=== PATIENT | female | born 1955 | race Caucasian/White ===

== ENCOUNTER 2017-11-27 08:00 | Outpatient (RCR) | payer BC, SELFPAY ==
--- NOTE | 2017-11-13 14:25 | PCM.PR.HP ---
History of Present Illness Arrival date:: 11/13/17 Arrival time:: 14:26 Date of Evaluation: 11/13/17 Referring Physician: Dr.Thomas Childs/Dr. Phuc Martines Primary Diagnosis: COPD Gold Level III History of Present Illness: The patient is a 62 year old female who presents to pulmonary rehab today under the care of Dr. Joel Childs and Dr[facility] Phuc [facility] for her COPD. mMRC Breathless Scale: When is the patient short of breath? Y/N Grade: Description of Breathlessness: 0 I only get breathless with strenuous exercise. 1 I get short of breath when hurrying on level ground or walking up a slight hill. 2 On level ground, I walk slower than people of the same age because of breathless, or have to stop for breath when walking at my own pace. 3 I stop for breath after walking 100 yards or after a few minutes on level ground. 4 I am too breathless to leave the house or I am breathless when dressing. Respiratory Problems: Yes: Able to Speak in Full Sentences, Hoarseness, Dyspnea at Rest, Dyspnea with Activity No: Retain Secretions, Limited Range of Motion, Chest Pain, Fatigue, Wheezing, Dizziness, Ankle Swelling, Anxiety, Panic, Dyspnea Lying Down Flat, Cough with Secretions Sleep Disorder Evaluation: EPWORTH SLEEPINESS SCALE 0 = NO chance of dozing 2 = MODERATE chance of dozing 1 = SLIGHT chance of dozing 3 = HIGH chance of dozing : SITUATION: CHANCE OF DOZING: Sitting and Reading Watching TV Sitting inactive in a public place (i.e. Movies) As a passenger in a car for an hour without a break Lying down to rest in the afternoon when permitted Sitting and talking to someone Sitting quietly after lunch without alcohol In a car, while stopped for a few minutes in traffic Total Total Equals: 1-6 = Adequate Sleep 7-8 = Average > 9 = Sleep Study/Consult Indicated Past Medical History Past Medical History: Cancer - uterus, Emphysema, Hypertension, Hypoxia - weqars supplemental oxygen 4 liters 20/05., Obesity, Sleep Apnea, - - HbA1c 6.0% due to prednisone use, leiomyoma of uterus, obesity, irritable bowel syndrome, ROXY, acute bronchitis, impaired fasting glucose. Psychiatric History: no pertinent psych hx Comments: Patient possible sleep apnea, patient's last sleep study was inconclusive, she refuses to have another one performed. Surgical History: - - herniorrhaphy Additional Family History: Maternal history of COPD, Paternal history of Liver cancer - Social History Marital Status: Assistive Devices:: none Fall history:: none Other potential problems:: none Interest/Hobbies:: fishing, sports (watching them), social media, crafts. 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 Smoking Status: Former smoker Quit Smoking Since: 2008 Packs per day: 1 Years Smoked: 35 - Living Arrangement Patient lives with other person(s) in the home:: AROUND THE CLOCK - Current/ Previous Services [facility] Home Health:: No Other Home Health:: No [facility] Cardiac Rehab:: No Life (Palliative) Care Services:: No Tobacco Use & Smoking Cessation:: No Pulmonary Rehab:: No Social History - Smoking History Smoking Status: Former smoker Years Smokin Packs Smoked per Day: 1 Hx Tobacco Use: No Hx Smoking Exposure: No - Alcohol Use Alcohol Usage: Yes - Heavy, patient drinks 4 drinks per night, she drinks more on weekends - Substance Abuse Hx Substance Use: No - Occupation Occupation (List type of work in comments):: Employed Hours worked per day:: 8 - 7-4 - Hobbies, Recreation, Social Activities Hobbies: Other - see previous page. Recreational Activities: I am able to engage in a few activities Medications & Vaccination Info Home Medications: Ambulatory Orders Albuterol IH (ProAir) [Proair Hfa] 2 puff INHALATION Q4H PRN PRN 04/15/17 Amlodipine [Norvasc] 5 mg PO DAILY 04/15/17 Beclomethasone Diprop Inhaler [Qvar 80 Mcg Inhaler] 2 puff INHALATION BID 04/15/17 Multivitamin [Daily Multiple Vitamin] 1 each PO DAILY 04/15/17 Salmeterol [Serevent Diskus] 1 puff INHALATION Q12 04/15/17 Tiotropium Paragon [Spiriva 18 MCG] 1 puff INHALATION DAILY 04/15/17 Triamterene/Hydrochlorothiazid [Triamterene-Hctz 37.5-25 mg Tb] 1 each PO DAILY 04/15/17 Guaifenesin [Mucinex] 1,200 mg PO BID #20 tablet 04/17/17 Levofloxacin [Levaquin] 500 mg PO DAILY #5 tablet 04/17/17 Nystatin 500,000 unit PO 4X/DAY #1 bot 04/17/17 Prednisone 10 mg PO DAILY #30 tab.ds.pk 04/17/17 Ascorbic Acid [Vitamin C] 500 mg PO 11/13/17 Oxygen, Home [Home Oxygen] 2 - 4 lpm NASAL 11/13/17 Do you use a peak flow meter at home?: No Do you use a spacer device with your inhalers?: No Number of hospital visits in the last year?: march 2017 Reason for hospital visits: RESP INF-PNUEM,BRONCHITIS, OTHER RESP PROBLEMS Number of emergency room visits in the last year?: March 2017 Exacerbation Do you see your physician on a regular schedule?: Yes How often?: PCP 6 months; Pulmonary 3 months presently Has adequate access & meets healthcare needs?: Yes - Drug Regimen Review Indication of potential clinical significant med issues (drug reactions, ineffective therapy, side effects, interactions, duplicate therapy, omissions, dose errors, or non-compliance)?: No problems found during review Was a physician or the physican designee contacted within one calendar day to resolve clinically significant medication issues, including reconcilitation?: No Review of Systems Constitutional: Reports: Fatigue - on occasion not a big problem.. Denies: Chills, Fever, Weight Change HEENT: Reports: Nasal Congestion, Post Nasal Drip, Sinus Congestion, Sinus Drainage. Denies: Head Aches Cardiovascular: Denies: Chest Pain, Palpitations Respiratory: Reports: Shortness of breath upon exertion. Denies: Cough, Shortness of Breath, Shortness of breath at rest, Sputum production, Wheezing Musculoskeletal: Denies: Joint Pain, Joint Tenderness Skin: Denies: Rash, Wounds Neurological: Denies: Numbness, Tingling, Focal weakness Psychiatric: Denies: Anxiety, Depression, Homicidal Ideations, Suicidal Ideations Advanced Directives - Advanced Directives Power of Managing Consultant Clinical Professor: No Living Will: No Advance Directives Information Provided: Yes Advance Directives on File: No DNR Order?:: No Coping/Social Support/Other - Abuse and Neglect Do you feel safe in your surroundings?:: YES Are there sign/symptoms of abuse?: No Has anyone physically or mentally abused you?: No Has anyone threatened to harm you in any way?: No Been asked to sign a document that you don't understand?: No - Exacerbation History Number of Exacerbations in a year:: 1 Recent exposure to illness?: No Known carrier?: No Number of Infections per year?: 1 Antibiotic Taken:: Yes I know I have an infection when:: I am beginning to realize the symptoms associated with an infection. - Nutrition Risk Factor Are you on a special diet?: Yes Diff. chewing/swallowing:: No Have you had a change in your weight?: No Physical Exam - Vital Signs Temperature: 98.7 F Pulse Rate: 95 Respiratory Rate: 18 Pulse Ox at rest: 90 - 1 liter at rest Blood Pressure: 112/68 Nailbeds:: pink Height: 5 ft 5.5 in Weight:: 120.85 kg Body Mass Index (BMI): 43.7 - Physical Exam General: Alert, Oriented x3, Cooperative Neck: Supple, No JVD, Negative Carotid Bruits, Negative Hepatojugular Reflux Lungs: Clear to auscultation, Normal air movement Cardiovascular: Regular rate, Regular Rhythm, No murmurs Extremities: No clubbing, No cyanosis, No edema, Capillary Refill Less than 3 Seconds Musculoskeletal: No Tenderness to Palpation of Joints or Extremities Psych/Mental Status: Normal Affect, Appropriate - Pain Is Patient Pain Free?: Yes Pain Location: none - Hearing/Speech/Vision/Spiritual Cultural/Jew Needs that may affect Treatment Plan: No Do you have any Spiritual/Emotional needs of which our Operating System Programmer Ministry could be of assistance?: No Operating System Programmer to contact Place of Taoism?: No Primary Language: Venezuelan Preferred Language: Venezuelan Right Hearing Abillity: Normal Visual Difficulty: Near Sighted, Far Sighted - Motivation to Participate On a scale of 1 to 10, how prepared are you to commit to attending pulmonary rehabilitation?: 10 What do you see as barriers to successfully being able to complete the program?: fear, gotten afraid of pushing myself to do things because of hypoxia. What do you see as the benefits of succesfully completing the program? In other words, what do you hope to get out of participating in the program?: Hoping for building some stamina, and knowledge of improving health. Are there issues you are dealing with that will interfere with completing the program?: none; other than lung capacity with exertion now. Do you have a spouse or signficant other, family or friends who will help support you to complete the program?: yes Diagnostic Data Review - Lab Results Hematology/Chemistry: See EMR. - Diagnostic and Imaging Results CT Scan of Chest: See patient's EMR - Cardiovascular Studies Echocardiogram: see EMR - Pulmonary Function Test FEV1:: 0.94 FVC:: 34 FEV1/FVC%:: 40 Gold Classification: GOLD class III(severe COPD)with FEV1/FVC<70, 30%</=FEV1< 50% predicted Functioning ADL/IADL - Functional Capacity ADL/IADL GROOMING: Current ability to tend safely to personal hygiene needs (i.e., washing face/hands, hair care, shaving or make up, teeth or denture care, fingernail care).: Able to groom self unaided, w/ or w/o the use of assistive devices. Current ABILITY TO DRESS UPPER BODY safely (with or w/out dressing aids) including undergarments, pullovers, front-opening shirts & blouses, managing zippers, buttons, & snaps:: Gets clothes out, puts on, and removes from upper body w/o assist. Current ABILITY TO DRESS LOWER BODY safely (with or w/out dressing aids) including undergarments, slacks, socks or nylons, shoes:: Able to obtain, put on, & remove clothing and shoes w/out assistance. Bathing: Current ability to wash entire body safely. EXCLUDES grooming (washing face, washing hands and shampooing hair): Bathes self in shower/tub independently, incl getting in & out TOILET TRANSFERRING: Current ability to get to & from the toilet/BSC safely and transfer on & off toilet/commode.: Gets to & from toilet, transfers independently w/ or w/o a device. TOILETING HYGIENE: Current ability to maintain perineal hygiene safely, adjust clothes and/or incontinence pads before & after using toilet, commode, bedpan, urinal. If managing ostomy, includes cleaning: Manages toileting hygiene & clothing management w/out assist TRANSFERRING: Current ability to move safely from bed to chair, or ability to turn and position self in bed if patient is bedfast.: Able to independently transfer. AMBULATION/LOCOMOTION: Current ability to walk safely, once in a standing position, or use wheelchair, once in a seated position, on a variety of surfaces.: Able to IND walk on even/uneven surface&use stairs with or w/o railing FEEDING or EATING: Current ability to feed self meals and snacks safely. NOTE: This refers only to the process of eating, chewing and swallowing, not preparing the food to be eaten.: Able to independently fee ABILITY TO PLAN AND PREPARE MEALS: (e.g., cereal, sandwich) or reheat delivered meals safely.: IND prepare light meals/reheat delvrd meals/Or can but hasn't done so. ABILITY TO USE TELEPHONE: Current ability to answer the phone safely, including dialing numbers, and effectively using the telephone to communicate.: Able to dial numbers and answer calls appropriately and as desired. - Pt Functioning Prior to Problem Self-Care (e.g.,grooming, dressing, & bathing): INDEPENDENT Ambulation: INDEPENDENT Transfer: INDEPENDENT Household tasks (e.g., light meal prep, laundry, shopping): INDEPENDENT
--- NOTE | 2017-11-13 14:35 | PR.ITP_ITS ---
General Information - General Information Admitting Diagnosis: COPD Gold Level Stage III Gold Classification:: GOLD 3: Severe Oxygen: Portable oxygen concentrator - PFT FEV1:: 0.94 - 35 predicted FVC:: 2.34 - 67% predicted FEV1/FVC%:: 40 - Education/Goals Barriers to Learning: None Individual Counseling: Initial Assessment: Dyspnea control techniques at rest, activity, and ADLs, Exacerbation prevention & management, O2, Rx, system, safety , Nutrition & weight management, Home exercise plan & guidelines Patient Goals: Breathe better: Initial Assessment, Increase endurance/stamina: Initial Assessment, Return to recreation/hobby: Initial Assessment, Control panic/anxiety: Initial Assessment, Improve diet and nutrition: Initial Assessment, Symptom management: Initial Assessment, Improve weight: Initial Assessment Exercise - Initial Assessment - Visit Date of Eval: 11/13/17 - initial evaluation - Problem/Goals Problems: Deconditioning, No regular exercise - Exercise Prescription Mode:: Treadmill, Airdyne, NuStep Frequency (x/week): 3 Duration:: 30 MET LEVEL:: 2 HR (bpm):: 120 - 112-120 max HR Exercise Progression: per standard program protocol - Plan Plan and Plan to Review:: Benefits of exercise, Core components of exercise, How to measure dyspnea level, How to monitor dyspnea level, Exercise intensity, Exercise safety guideline, Home exercise guidelines, Franck: 3-4/-13 Disease Management - Initial - Problems/Goals-Hypoxemia Hypoxemia Problems:: Hypoxemia Hypoxemia Goals:: Hypoxemia managed, Port system, Using O2 as Rx's safely - Oxygen at 4 liters 20/05 - Problems/Goals-Bronchial Hygiene Bronchial Hygiene Problems:: Respiratory infection Prevention/Management Bronchial Hygiene Goals:: Pt demonstrates effective cough, effective secretion clearance., Pt describes signs and symptoms of infection. - Initial Assessment FiO2:: 0 - 4 liters oxygen Port O2:: concentrator Does pt report taking home meds as prescribed?: Yes Medications: Yes MDI, Yes DPI, Yes NEB, No Spacer - Plans Hypoxemia Plan:: Monitor SpO2 rest & with exercise, Train appropriate O2 use at rest, Train appropriate O2 use with exercise, Train O2 safety & systems Reviewed prescribed medications:: Purpose, Schedule, Side effects, Importance of compliance Instruct correct technique/timing & care:: MDI, DPI, Nebulizer, Return demo use of inhaler Bronchial Hygiene Plan: Controlled cough, Vibratory PEP device, Role of exercise in secretion clearance, Hydration, Hand hygiene, Signs/symptoms to report:, Influenza/Pneumovax vaccines, Cleaning of respiratory equipment Psychosocial - Initial Assess - Problems/Goals Problems: Impaired Q.O.L. Psychosocial Goals: Improved Q.O.L. - Psychosocial Test Depression:: Impaired QOL Tests Completed: SF - 36 survey completed, Mood Scale Test Referred to MD for counseling:: No - Plan Reviewed screening results: Yes Instructions given regarding:: Benefits of exercise, Relaxation techniques, Training in coping strategies Tobacco - Initial Assessment - Program Goals Tobacco Program Goals: Complete smoking cessation. Attend education classes. Improve Knowledge Test score - Stage of Change Stages of Change:: Action - Learning Barriers Learning Barriers: Vision - wears glasses, Ready to Learn - Family Support Do you have family support?: Yes - Tobacco Use Tobacco Use: Non-smoker How long ago did you quit using tobacco products?: Greater than or equal to 6 months ago Do you use smokeless tobacco?: No - Intervention Smoking Cessation Referral:: No Individual Education/Counseling:: No Education Schedule Given:: Yes - Education Gave Education Materials For:: Pulmonary Disease, Risk Factors, Breathing Techniques, Medical Compliance, Pulmonary A&P, Exacerbation Signs & Symptoms, Stress & Relaxation Nutrition/Wt Mgmt - Initial - Problems/Goals Problems: Overweight Goals: Wt Loss 1-2 lbs per week - Weight Management Knowledge Deficit Management of:: Overweight Admit Height:: 5 ft 5.25 in Admit Weight:: 120.656 kg Admit BMI:: 43.9 - Diabetes Diabetes:: No Insulin: No Do you monitor your blood sugar at home?: No - Intervention Referral to dietitian:: Yes - Structured Weight Loss Program Referral to Diabetic Clinic:: No Will attend diet classes:: Yes - Plan Nutrition Plan: Yes Review BMI or WC & identify target wt & strategies for wt control, Yes Nutrition education class:, Yes Weight control education class:, Yes Education re: Need for ongoing weight monitoring, Yes Food diary: Patient Health Questionnaire Initial Assessment 1. Little interest or pleasure in doing things: More than half the days 2. Feeling down, depressed, or hopeless: Not at all 3. Trouble falling or staying asleep, or sleeping too much: Several days 4. Feeling tired or having little energy: More than half the days 5. Poor appetite or overeating: Not at all 6. Feeling bad about yourself -- or that you are a failure or have let yourself or your family down: Not at all 7. Trouble concentrating on things, such as reading the newspaper or watching television: Several days 8. Moving or speaking so slowly that other people could have noticed. Or the opposite - being so fidgety or restless that you have been moving around a lot more than usual: Not at all 9. Thoughts that you would be better off , or of hurting yourself in some way: Not at all How difficult have these problems made it for you to do your work, take care of things at home, or get along with other people?: Somewhat difficult Total Score: 6 COPD Knowledge Test Initial COPD is a lung disease that:: Makes it hard to breathe & gets worse over time In the [place] the term COPD describes 2 main lung conditions:: Emphysema & chronic bronchitis The most common lung irritant that causes COPD is:: Cigarette smoke Common signs and symptoms of COPD include:: An ongoing cough/cough that produces a large amount of mucus, & SOB If you have COPD, what steps can you take?: All of the above Swelling of the ankles is common in COPD:: True Fatigue [tiredness] is common in COPD:: True Wheezing is common in COPD:: True Crushing chest pain is common in COPD:: False Rapid weight loss is common in COPD:: False Breathlessness is a normal response to exercise: True Exercise should be avoided if it makes you short of breath: False All bronchodilators act within 10 minutes: True A spacer device increases the medication to the lungs: True Annual flu vaccine is recommended for pts w/lung disease: True COPD Knowledge Test Total Score:: 13 COPD Assessment Test [CAT] - Questions Never cough = 0, Cough all the time = 5: 1 No phlegm = 0, Chest full of phlegm = 5: 2 No chest tightness = 0, Chest very tight = 5: 2 No breathless w/exertion = 0, Very breathless w/exertion = 5: 5 No limitations w/activity = 0, Very limited w/activity = 5: 5 Confident leaving home = 0, Not at all confident = 5: 4 Sleep soundly = 0, Don't sleep soundly = 5: 2 Lots of energy = 0, No energy at all = 5: 4 Total CAT score:: 25 Self-Efficacy Initial Assessment We would like to know how confident you are in doing certain activities. Please select your confidence level for:: Select your confidence level for the following using the scale 1-10 where 1 is not at all confident and 10 is totally confident. Your score is the average of all 6 responses. Fatigue: How confident are you that you can keep the fatigue caused by your disease from interfering with the things you want to do? Select Number: 4 Physical Discomfort or Pain: How confident are you that you can keep the physical discomfort or pain of your disease from interfering with the things you want to do? Select Number: 3 Emotional Distress: How confident are you that you can keep the emotional distress caused by your disease from interfering with the things you want to do? Select Number: 5 Other Symptoms or Health Problems: How confident are you that you can keep other symptoms or health problems from interfering with the things you want to do? Select Number: 6 Different Tasks and Activities: How confident are you that you can do the different tasks and activities needed to manage your health condition so as to reduce your need to see a doctor? Select Number: 5 Medication: How confident are you that you can do things other than just taking medication to reduce how much your illness affects your everyday life? Select Number: 6 Total Score:: 4 Nutrition Survey - Nutrition Survey Instructions Scoring Instructions: Scoring is as follows: Yes = 1 points. No = 0 point. Patient score that is >/=12 is considered to be at potential nutritional risk and could benefit from a referral to a registered dietitian. - Nutrition Survey Initial Have you lost >10 lbs over the past 2 months without trying?: No Are you following a special diet at home for diabetes, low fat, or low salt?: Yes Are you interested in meeting with a dietitian for help understanding your diet? : Yes Do you eat less than 3 meals a day?: No Do you eat fatty meats (lynch, sausage, ribs, etc), fried foods, desserts, large amounts of salad dressings, margarine, butter, or cheese most days?: No Do you have food allergies? [Enter types in comment field]: No Do you eat in restaurants more than 3 times a week?: No Do you season food with salt, seasoning salt, or garlic salt?: Yes Do you used canned, boxed, frozen meals, or soups, seasoning packets?: No Total Score:: 3
--- NOTE | 2017-11-13 14:39 | PR.HP_ITS ---
History of Present Illness Arrival date:: 11/13/17 Arrival time:: 14:26 Date of Evaluation: 11/13/17 Referring Physician: Dr.Thomas Childs/Dr. Phuc Martines Primary Diagnosis: COPD Gold Level III History of Present Illness: The patient is a 62 year old female who presents to pulmonary rehab today under the care of Dr. Joel Childs and Dr. Phuc Martines of the [facility] for her COPD. m[facility]C Breathless Scale: When is the patient short of breath? Y/N Grade: Description of Breathlessness: 0 I only get breathless with strenuous exercise. 1 I get short of breath when hurrying on level ground or walking up a slight hill. 2 On level ground, I walk slower than people of the same age because of breathless, or have to stop for breath when walking at my own pace. 3 I stop for breath after walking 100 yards or after a few minutes on level ground. 4 I am too breathless to leave the house or I am breathless when dressing. Respiratory Problems: Yes: Able to Speak in Full Sentences, Hoarseness, Dyspnea at Rest, Dyspnea with Activity No: Retain Secretions, Limited Range of Motion, Chest Pain, Fatigue, Wheezing , Dizziness, Ankle Swelling, Anxiety, Panic, Dyspnea Lying Down Flat, Cough with Secretions Sleep Disorder Evaluation: EPWORTH SLEEPINESS SCALE 0 = NO chance of dozing 2 = MODERATE chance of dozing 1 = SLIGHT chance of dozing 3 = HIGH chance of dozing : SITUATION: CHANCE OF DOZING: Sitting and Reading Watching TV Sitting inactive in a public place (i.e. Movies) As a passenger in a car for an hour without a break Lying down to rest in the afternoon when permitted Sitting and talking to someone Sitting quietly after lunch without alcohol In a car, while stopped for a few minutes in traffic Total Total Equals: 1-6 = Adequate Sleep 7-8 = Average > 9 = Sleep Study/Consult Indicated Past Medical History Past Medical History: Cancer - uterus, Emphysema, Hypertension, Hypoxia - weqars supplemental oxygen 4 liters 20/05., Obesity, Sleep Apnea, - - HbA1c 6.0% due to prednisone use, leiomyoma of uterus, obesity, irritable bowel syndrome, ROXY, acute bronchitis, impaired fasting glucose. Psychiatric History: no pertinent psych hx Comments: Patient possible sleep apnea, patient's last sleep study was inconclusive, she refuses to have another one performed. Surgical History: - - herniorrhaphy Additional Family History: Maternal history of COPD, Paternal history of Liver cancer - Social History Marital Status: Assistive Devices:: none Fall history:: none Other potential problems:: none Interest/Hobbies:: fishing, sports (watching them), social media, crafts. 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 Smoking Status: Former smoker Quit Smoking Since: 2008 Packs per day: 1 Years Smoked: 35 - Living Arrangement Patient lives with other person(s) in the home:: AROUND THE CLOCK - Current/ Previous Services [facility] Home Health:: No Other Home Health:: No [facility] Cardiac Rehab:: No Life (Palliative) Care Services:: No Tobacco Use & Smoking Cessation:: No Pulmonary Rehab:: No Social History - Smoking History Smoking Status: Former smoker Years Smokin Packs Smoked per Day: 1 Hx Tobacco Use: No Hx Smoking Exposure: No - Alcohol Use Alcohol Usage: Yes - Heavy, patient drinks 4 drinks per night, she drinks more on weekends - Substance Abuse Hx Substance Use: No - Occupation Occupation (List type of work in comments):: Employed Hours worked per day:: 8 - 7-4 - Hobbies, Recreation, Social Activities Hobbies: Other - see previous page. Recreational Activities: I am able to engage in a few activities Medications & Vaccination Info Home Medications: Ambulatory Orders Albuterol IH (ProAir) [Proair Hfa] 2 puff INHALATION Q4H PRN PRN 04/15/17 Amlodipine [Norvasc] 5 mg PO DAILY 04/15/17 Beclomethasone Diprop Inhaler [Qvar 80 Mcg Inhaler] 2 puff INHALATION BID Multivitamin [Daily Multiple Vitamin] 1 each PO DAILY 04/15/17 Salmeterol [Serevent Diskus] 1 puff INHALATION Q12 04/15/17 Tiotropium Weston [Spiriva 18 MCG] 1 puff INHALATION DAILY 04/15/17 Triamterene/Hydrochlorothiazid [Triamterene-Hctz 37.5-25 mg Tb] 1 each PO DAILY 04/15/17 Guaifenesin [Mucinex] 1,200 mg PO BID #20 tablet 04/17/17 Levofloxacin [Levaquin] 500 mg PO DAILY #5 tablet 04/17/17 Nystatin 500,000 unit PO 4X/DAY #1 bot 04/17/17 Prednisone 10 mg PO DAILY #30 tab.ds.pk 04/17/17 Ascorbic Acid [Vitamin C] 500 mg PO 11/13/17 Oxygen, Home [Home Oxygen] 2 - 4 lpm NASAL 11/13/17 Do you use a peak flow meter at home?: No Do you use a spacer device with your inhalers?: No Number of hospital visits in the last year?: march 2017 Reason for hospital visits: RESP INF-PNUEM,BRONCHITIS, OTHER RESP PROBLEMS Number of emergency room visits in the last year?: March 2017 Exacerbation Do you see your physician on a regular schedule?: Yes How often?: PCP 6 months; Pulmonary 3 months presently Has adequate access & meets healthcare needs?: Yes - Drug Regimen Review Indication of potential clinical significant med issues (drug reactions, ineffective therapy, side effects, interactions, duplicate therapy, omissions, dose errors, or non-compliance)?: No problems found during review Was a physician or the physican designee contacted within one calendar day to resolve clinically significant medication issues, including reconcilitation?: No Review of Systems Constitutional: Reports: Fatigue - on occasion not a big problem.. Denies: Chills, Fever, Weight Change HEENT: Reports: Nasal Congestion, Post Nasal Drip, Sinus Congestion, Sinus Drainage. Denies: Head Aches Cardiovascular: Denies: Chest Pain, Palpitations Respiratory: Reports: Shortness of breath upon exertion. Denies: Cough, Shortness of Breath, Shortness of breath at rest, Sputum production, Wheezing Musculoskeletal: Denies: Joint Pain, Joint Tenderness Skin: Denies: Rash, Wounds Neurological: Denies: Numbness, Tingling, Focal weakness Psychiatric: Denies: Anxiety, Depression, Homicidal Ideations, Suicidal Ideations Advanced Directives - Advanced Directives Power of Monotype Setter: No Living Will: No Advance Directives Information Provided: Yes Advance Directives on File: No DNR Order?:: No Coping/Social Support/Other - Abuse and Neglect Do you feel safe in your surroundings?:: YES Are there sign/symptoms of abuse?: No Has anyone physically or mentally abused you?: No Has anyone threatened to harm you in any way?: No Been asked to sign a document that you don't understand?: No - Exacerbation History Number of Exacerbations in a year:: 1 Recent exposure to illness?: No Known carrier?: No Number of Infections per year?: 1 Antibiotic Taken:: Yes I know I have an infection when:: I am beginning to realize the symptoms associated with an infection. - Nutrition Risk Factor Are you on a special diet?: Yes Diff. chewing/swallowing:: No Have you had a change in your weight?: No Physical Exam - Vital Signs Temperature: 98.7 F Pulse Rate: 95 Respiratory Rate: 18 Pulse Ox at rest: 90 - 1 liter at rest Blood Pressure: 112/68 Nailbeds:: pink Height: 5 ft 5.5 in Weight:: 120.85 kg Body Mass Index (BMI): 43.7 - Physical Exam General: Alert, Oriented x3, Cooperative Neck: Supple, No JVD, Negative Carotid Bruits, Negative Hepatojugular Reflux Lungs: Clear to auscultation, Normal air movement Cardiovascular: Regular rate, Regular Rhythm, No murmurs Extremities: No clubbing, No cyanosis, No edema, Capillary Refill Less than 3 Seconds Musculoskeletal: No Tenderness to Palpation of Joints or Extremities Psych/Mental Status: Normal Affect, Appropriate - Pain Is Patient Pain Free?: Yes Pain Location: none - Hearing/Speech/Vision/Spiritual Cultural/Episcopalian Needs that may affect Treatment Plan: No Do you have any Spiritual/Emotional needs of which our [facility] could be of assistance?: No Mushroom Growing Supervisor to contact Place of Spiritism?: No Primary Language: Cymraes Preferred Language: Cymraes Right Hearing Abillity: Normal Visual Difficulty: Near Sighted, Far Sighted - Motivation to Participate On a scale of 1 to 10, how prepared are you to commit to attending pulmonary rehabilitation?: 10 What do you see as barriers to successfully being able to complete the program? : fear, gotten afraid of pushing myself to do things because of hypoxia. What do you see as the benefits of succesfully completing the program? In other words, what do you hope to get out of participating in the program?: Hoping for building some stamina, and knowledge of improving health. Are there issues you are dealing with that will interfere with completing the program?: none; other than lung capacity with exertion now. Do you have a spouse or signficant other, family or friends who will help support you to complete the program?: yes Diagnostic Data Review - Lab Results Hematology/Chemistry: See EMR. - Diagnostic and Imaging Results CT Scan of Chest: See patient's EMR - Cardiovascular Studies Echocardiogram: see EMR - Pulmonary Function Test FEV1:: 0.94 FVC:: 34 FEV1/FVC%:: 40 Gold Classification: GOLD class III(severe COPD)with FEV1/FVC<70, 30%</=FEV1< 50 % predicted Functioning ADL/IADL - Functional Capacity ADL/IADL GROOMING: Current ability to tend safely to personal hygiene needs (i.e., washing face/hands, hair care, shaving or make up, teeth or denture care, fingernail care).: Able to groom self unaided, w/ or w/o the use of assistive devices. Current ABILITY TO DRESS UPPER BODY safely (with or w/out dressing aids) including undergarments, pullovers, front-opening shirts & blouses, managing zippers, buttons, & snaps:: Gets clothes out, puts on, and removes from upper body w/o assist. Current ABILITY TO DRESS LOWER BODY safely (with or w/out dressing aids) including undergarments, slacks, socks or nylons, shoes:: Able to obtain, put on , & remove clothing and shoes w/out assistance. Bathing: Current ability to wash entire body safely. EXCLUDES grooming (washing face, washing hands and shampooing hair): Bathes self in shower/tub independently, incl getting in & out TOILET TRANSFERRING: Current ability to get to & from the toilet/BSC safely and transfer on & off toilet/commode.: Gets to & from toilet, transfers independently w/ or w/o a device. TOILETING HYGIENE: Current ability to maintain perineal hygiene safely, adjust clothes and/or incontinence pads before & after using toilet, commode, bedpan, urinal. If managing ostomy, includes cleaning: Manages toileting hygiene & clothing management w/out assist TRANSFERRING: Current ability to move safely from bed to chair, or ability to turn and position self in bed if patient is bedfast.: Able to independently transfer. AMBULATION/LOCOMOTION: Current ability to walk safely, once in a standing position, or use wheelchair, once in a seated position, on a variety of surfaces.: Able to IND walk on even/uneven surface&use stairs with or w/o railing FEEDING or EATING: Current ability to feed self meals and snacks safely. NOTE: This refers only to the process of eating, chewing and swallowing, not preparing the food to be eaten.: Able to independently fee ABILITY TO PLAN AND PREPARE MEALS: (e.g., cereal, sandwich) or reheat delivered meals safely.: IND prepare light meals/reheat delvrd meals/Or can but hasn't done so. ABILITY TO USE TELEPHONE: Current ability to answer the phone safely, including dialing numbers, and effectively using the telephone to communicate.: Able to dial numbers and answer calls appropriately and as desired. - Pt Functioning Prior to Problem Self-Care (e.g.,grooming, dressing, & bathing): INDEPENDENT Ambulation: INDEPENDENT Transfer: INDEPENDENT Household tasks (e.g., light meal prep, laundry, shopping): INDEPENDENT
[2017-11-13 15:17] VITALS: BP 112/68; PULSE 95; RESP 18; TEMP 37.1; O2SAT 90; BMI 43.7
[2017-11-13 15:57] VITALS: BMI 43.9
--- NOTE | 2017-11-13 16:07 | PR.DATECOV_ITS ---
Dates of Coverage Times for Dates Of Coverage; All dates of coverage are for physician supervision /medical technologist chemistry for during the times of 08:00 AM through 4:30 PM. Effective Jun 28, 2013 our hours will be changing to 8:00 to 4:30 on Saturday, Saturday and Saturday. First Date of the Month: 11/18/17 Last Date of the Month: 11/27/17
== END 2017-11-27 23:59 ==
LOC: PR 08:00
PROVIDERS: Family Provider Student in an Organized Health Care Education/Training Program; PCP Student in an Organized Health Care Education/Training Program; Visit Provider Internal Medicine Pulmonary Disease
DX: J44.9 Chronic obstructive pulmonary disease, unspecified (principal)
CPT/HCPCS: 97150; G0424

== ENCOUNTER 2017-12-25 08:00 | Outpatient (RCR) | payer BC, SELFPAY ==
[2017-11-13 15:17] VITALS: BP 112/68
[2017-11-13 15:57] VITALS: BMI 43.9
[2017-11-28 01:08] VITALS: PULSE 95; RESP 18; TEMP 37.1; O2SAT 90
--- NOTE | 2017-12-23 14:38 | PR.DATECOV_ITS ---
Dates of Coverage Times for Dates Of Coverage; All dates of coverage are for physician supervision /medical office specialist for during the times of 08:00 AM through 4:30 PM. Effective Jun 28, 2013 our hours will be changing to 8:00 to 4:30 on Saturday, Saturday and Saturday. First Date of the Month: 12/26/17 Last Date of the Month: 01/24/18
--- NOTE | 2017-12-23 14:38 | PCM.PR.TP ---
Exercise - 60-Day Assessment - Current Level Mode:: Treadmill, Airdyne, NuStep, Arm Ergometer Frequency (x/week): 3 Duration:: 30 Aerobic Exercise [30-60 min 3-7x/week]:: Progressing Target heart rate: 123 - THRR 112-120 Franck MET Level:: 3 - Home Exercise Home Exercise:: No Disease Management - 60-Day - Hypoxemia Reassessment: Demonstrates knowledge of O2 Rx at rest, Demonstrates knowledge of O2 Rx with exercise, Using O2 as prescribed, Has home O2 as prescribed, Uses port O2 as prescribed - Medications Medication list reviewed:: Yes Taking medications 100% of the time:: Met Medication reassessment: Yes Pt demonstrates correct technique timing for MDI, Yes Pt demonstrates correct technique timing for DPI, Yes Pt demonstrates correct technique timing for NEB, Yes Pt demonstrates correct technique timing for spacer - Bronchial Hygiene Bronchial Hygiene Plan: Yes Pt demo correct for device, Yes Pt demo correct for sputum management, Yes Pt demo correct for improved hydration, Yes Pt demo correct for hand hygiene, Yes Pt demo correct for verbalize when to call MD Psychosocial - 60-Day - Assessment Depression reassess: Management of stress: Met, Management of depression: Met, Practicing interventions: Met Tobacco - 60-Day Assessment - Program Goals Tobacco Program Goals: Complete smoking cessation. Attend education classes. Improve Knowledge Test score - Stage of Change Stages of Change:: Action - Learning Barriers Learning Barriers: Participates in education - Family Support Do you have family support?: Yes - Tobacco Use Tobacco Use: Non-smoker Do you use smokeless tobacco?: No - Intervention Smoking Cessation Referral:: No Individual Education/Counseling:: No Education Schedule Given:: Yes - Education Gave Education Materials For:: Pulmonary Disease, Risk Factors, Breathing Techniques, Medical Compliance, Pulmonary A&P, Exacerbation Signs & Symptoms, Stress & Relaxation Nutrition/Wt Mgmt - 60-Day - Weight Management Weight Assessment:: Wt loss 1-2 lbs per week Weight:: 116.12 kg - loss 10 pounds! Weight Goals Progress:: Progressing Patient Health Questionnaire 60-Day Re-eval Assessment 1. Little interest or pleasure in doing things: More than half the days 2. Feeling down, depressed, or hopeless: Not at all 3. Trouble falling or staying asleep, or sleeping too much: Not at all 4. Feeling tired or having little energy: Several days 5. Poor appetite or overeating: Not at all 6. Feeling bad about yourself -- or that you are a failure or have let yourself or your family down: Not at all 7. Trouble concentrating on things, such as reading the newspaper or watching television: Several days 8. Moving or speaking so slowly that other people could have noticed. Or the opposite - being so fidgety or restless that you have been moving around a lot more than usual: Not at all 9. Thoughts that you would be better off , or of hurting yourself in some way: Not at all How difficult have these problems made it for you to do your work, take care of things at home, or get along with other people?: Not difficult at all Total Score: 4 COPD Assessment Test [CAT] - Questions Never cough = 0, Cough all the time = 5: 1 No phlegm = 0, Chest full of phlegm = 5: 2 No chest tightness = 0, Chest very tight = 5: 2 No breathless w/exertion = 0, Very breathless w/exertion = 5: 4 No limitations w/activity = 0, Very limited w/activity = 5: 4 Confident leaving home = 0, Not at all confident = 5: 3 Sleep soundly = 0, Don't sleep soundly = 5: 1 Lots of energy = 0, No energy at all = 5: 2 Total CAT score:: 19 Self-Efficacy 60-Day Re-eval Assessment We would like to know how confident you are in doing certain activities. Please select your confidence level for:: Select your confidence level for the following using the scale 1-10 where 1 is not at all confident and 10 is totally confident. Your score is the average of all 6 responses. Fatigue: How confident are you that you can keep the fatigue caused by your disease from interfering with the things you want to do? Select Number: 6 Physical Discomfort or Pain: How confident are you that you can keep the physical discomfort or pain of your disease from interfering with the things you want to do? Select Number: 5 Emotional Distress: How confident are you that you can keep the emotional distress caused by your disease from interfering with the things you want to do? Select Number: 6 Other Symptoms or Health Problems: How confident are you that you can keep other symptoms or health problems from interfering with the things you want to do? Select Number: 7 Different Tasks and Activities: How confident are you that you can do the different tasks and activities needed to manage your health condition so as to reduce your need to see a doctor? Select Number: 6 Medication: How confident are you that you can do things other than just taking medication to reduce how much your illness affects your everyday life? Select Number: 7 Total Score:: 6
== END 2017-12-25 23:59 ==
LOC: PR 08:00
PROVIDERS: Family Provider Student in an Organized Health Care Education/Training Program; PCP Student in an Organized Health Care Education/Training Program; Visit Provider Internal Medicine Pulmonary Disease
DX: J44.9 Chronic obstructive pulmonary disease, unspecified (principal)
CPT/HCPCS: 97150; G0424

== ENCOUNTER 2018-01-24 08:00 | Outpatient (RCR) | payer BC, SELFPAY ==
[2017-12-26 00:52] VITALS: BP 112/68; PULSE 95; RESP 18; TEMP 37.1; O2SAT 90; BMI 43.9
--- NOTE | 2018-01-20 12:56 | PCM.PR.TP ---
Exercise - 90-Day Assessment - Exercise Prescription Mode:: Treadmill, NuStep, Arm Ergometer Frequency (x/week): 3 Duration:: 30 Aerobic Exercise [30-60 min 3-7x/week]:: Met Target heart rate: 128 - 120-128 THHR Max HR 122 Franck.5 MET Level:: 4 - Home Exercise Home Exercise?: Yes Frequency:: daily Time (minutes):: 30 - walking Disease Management - 90-Day - Medications Medication list reviewed:: Yes Taking medications 100% of the time:: Met Medication reassessment: Yes Pt demonstrates correct technique timing for MDI, Yes Pt demonstrates correct technique timing for DPI, Yes Pt demonstrates correct technique timing for NEB, Yes Pt demonstrates correct technique timing for spacer - Bronchial Hygiene Bronchial Hygiene Plan: Yes Pt demonstrates correctly for effective cough, Yes Pt demo correct for device - returned demonstration of acapella device, Yes Pt demo correct for improved hydration - drinks water daily and ice., Yes Pt demo correct for evalute sputum - verbalizes signs symptoms., Yes Pt demo correct for verbalize when to call MD Psychosocial - 90-Day - Assessment Depression reassess: Management of stress: Met, Management of depression: Met, Practicing interventions: Met Tobacco - 90-Day Assessment - Program Goals Tobacco Program Goals: Complete smoking cessation. Attend education classes. Improve Knowledge Test score - Stage of Change Stages of Change:: Action - Learning Barriers Learning Barriers: Participates in education - Family Support Do you have family support?: Yes - Tobacco Use Tobacco Use: Non-smoker Do you use smokeless tobacco?: No - Intervention Smoking Cessation Referral:: No Individual Education/Counseling:: No Education Schedule Given:: Yes - Education Gave Education Materials For:: Pulmonary Disease, Risk Factors, Breathing Techniques, Medical Compliance, Pulmonary A&P, Exacerbation Signs & Symptoms, Stress & Relaxation Nutrition/Wt Mgmt - 90-Day - Weight Management Weight Assessment:: Wt stable Weight:: 255 lb - 1 pound weight loss Weight Goals Progress:: Not progressing Patient Health Questionnaire 90-Day Re-eval Assessment 1. Little interest or pleasure in doing things: Not at all 2. Feeling down, depressed, or hopeless: Not at all 3. Trouble falling or staying asleep, or sleeping too much: Not at all 4. Feeling tired or having little energy: Not at all 5. Poor appetite or overeating: Not at all 6. Feeling bad about yourself -- or that you are a failure or have let yourself or your family down: Not at all 7. Trouble concentrating on things, such as reading the newspaper or watching television: Not at all 8. Moving or speaking so slowly that other people could have noticed. Or the opposite - being so fidgety or restless that you have been moving around a lot more than usual: Not at all 9. Thoughts that you would be better off , or of hurting yourself in some way: Not at all How difficult have these problems made it for you to do your work, take care of things at home, or get along with other people?: Not difficult at all Total Score: 0 COPD Assessment Test [CAT] - Questions Never cough = 0, Cough all the time = 5: 3 No phlegm = 0, Chest full of phlegm = 5: 2 No chest tightness = 0, Chest very tight = 5: 3 No breathless w/exertion = 0, Very breathless w/exertion = 5: 4 No limitations w/activity = 0, Very limited w/activity = 5: 3 Confident leaving home = 0, Not at all confident = 5: 3 Sleep soundly = 0, Don't sleep soundly = 5: 4 Lots of energy = 0, No energy at all = 5: 3 Total CAT score:: 25 Self-Efficacy 90-Day Re-eval Assessment We would like to know how confident you are in doing certain activities. Please select your confidence level for:: Select your confidence level for the following using the scale 1-10 where 1 is not at all confident and 10 is totally confident. Your score is the average of all 6 responses. Fatigue: How confident are you that you can keep the fatigue caused by your disease from interfering with the things you want to do? Select Number: 10 Physical Discomfort or Pain: How confident are you that you can keep the physical discomfort or pain of your disease from interfering with the things you want to do? Select Number: 10 Emotional Distress: How confident are you that you can keep the emotional distress caused by your disease from interfering with the things you want to do? Select Number: 10 Other Symptoms or Health Problems: How confident are you that you can keep other symptoms or health problems from interfering with the things you want to do? Select Number: 10 Different Tasks and Activities: How confident are you that you can do the different tasks and activities needed to manage your health condition so as to reduce your need to see a doctor? Select Number: 10 Medication: How confident are you that you can do things other than just taking medication to reduce how much your illness affects your everyday life? Select Number: 10 Total Score:: 10
--- NOTE | 2018-01-20 13:07 | PR.DATECOV_ITS ---
Dates of Coverage Times for Dates Of Coverage; All dates of coverage are for physician supervision /forensic medical examiner for during the times of 08:00 AM through 4:30 PM. Effective Jun 28, 2013 our hours will be changing to 8:00 to 4:30 on Saturday, Saturday and Saturday. First Date of the Month: 01/26/18 Last Date of the Month: 02/24/18
== END 2018-01-25 23:59 ==
LOC: PR 08:00
PROVIDERS: Family Provider Student in an Organized Health Care Education/Training Program; PCP Student in an Organized Health Care Education/Training Program; Visit Provider Internal Medicine Pulmonary Disease
DX: J44.9 Chronic obstructive pulmonary disease, unspecified (principal)
CPT/HCPCS: 97150; G0424

== ENCOUNTER 2018-02-17 08:00 | Outpatient (RCR) | payer BC, SELFPAY ==
[2018-01-26 00:44] VITALS: BP 112/68; PULSE 95; RESP 18; TEMP 37.1; O2SAT 90; BMI 43.9
--- NOTE | 2018-02-18 07:02 | PR.ITP_ITS ---
Exercise - Final Assessment - Exercise Prescription Mode:: Treadmill, NuStep, Arm Ergometer Frequency (x/week): 3 Duration:: 30 Aerobic Exercise [30-60 min 3-7x/week]:: Met Further followup [see D/C Summary]:: No Target heart rate: 128 - THRR 120-128 Franck MET Level:: 4 - Home Exercise Home Exercise:: Yes Frequency: daily Time (minutes):: 30 - walking Disease Management - Final - Hypoxemia Final Assessment: Demonstrates knowledge of O2 Rx at rest, Demonstrates knowledge of O2 Rx with exercise, Using O2 as prescribed, Has home O2 as prescribed, Uses port O2 as prescribed - Medications Medication list reviewed:: Yes Taking medications 100% of the time:: Met Psychosocial - Final Assess - Assessment Depression reassess: Management of stress: Met, Management of depression: Met, Practicing interventions: Met Tobacco - Final Assessment - Program Goals Tobacco Program Goals: Complete smoking cessation. Attend education classes. Improve Knowledge Test score - Stage of Change Stages of Change:: Action - Learning Barriers Learning Barriers: Participates in education, Change in behavior - more active, exercise (walking) daily. Going to joing maintenance or gym to continue exercise ! - Family Support Do you have family support?: Yes - Tobacco Use Tobacco Use: Non-smoker Do you use smokeless tobacco?: No - Intervention Smoking Cessation Referral:: No Individual Education/Counseling:: No Education Schedule Given:: Yes - Education Education Goal Reached?: Yes Nutrition/Wt Mgmt - Final - Weight Management Weight:: 250 lb Weight Goals Progress:: Progressing Patient Health Questionnaire Discharge Assessment 1. Little interest or pleasure in doing things: Not at all 2. Feeling down, depressed, or hopeless: Not at all 3. Trouble falling or staying asleep, or sleeping too much: Not at all 4. Feeling tired or having little energy: Not at all 5. Poor appetite or overeating: Not at all 6. Feeling bad about yourself -- or that you are a failure or have let yourself or your family down: Not at all 7. Trouble concentrating on things, such as reading the newspaper or watching television: Not at all 8. Moving or speaking so slowly that other people could have noticed. Or the opposite - being so fidgety or restless that you have been moving around a lot more than usual: Not at all 9. Thoughts that you would be better off , or of hurting yourself in some way: Not at all How difficult have these problems made it for you to do your work, take care of things at home, or get along with other people?: Not difficult at all Total Score: 0 COPD Knowledge Test Discharge COPD is a lung disease that:: Makes it hard to breathe & gets worse over time In the [place] the term COPD describes 2 main lung conditions:: Emphysema & chronic bronchitis The most common lung irritant that causes COPD is:: Cigarette smoke Common signs and symptoms of COPD include:: An ongoing cough/cough that produces a large amount of mucus, & SOB If you have COPD, what steps can you take?: All of the above Swelling of the ankles is common in COPD:: False Fatigue [tiredness] is common in COPD:: True Wheezing is common in COPD:: True Crushing chest pain is common in COPD:: False Rapid weight loss is common in COPD:: False Breathlessness is a normal response to exercise: True Exercise should be avoided if it makes you short of breath: False All bronchodilators act within 10 minutes: False A spacer device increases the medication to the lungs: True Annual flu vaccine is recommended for pts w/lung disease: True COPD Knowledge Test Total Score:: 15 COPD Assessment Test [CAT] - Questions Never cough = 0, Cough all the time = 5: 2 No phlegm = 0, Chest full of phlegm = 5: 0 No chest tightness = 0, Chest very tight = 5: 0 No breathless w/exertion = 0, Very breathless w/exertion = 5: 1 No limitations w/activity = 0, Very limited w/activity = 5: 1 Confident leaving home = 0, Not at all confident = 5: 0 Sleep soundly = 0, Don't sleep soundly = 5: 1 Lots of energy = 0, No energy at all = 5: 0 Total CAT score:: 5 Self-Efficacy Discharge Assessment We would like to know how confident you are in doing certain activities. Please select your confidence level for:: Select your confidence level for the following using the scale 1-10 where 1 is not at all confident and 10 is totally confident. Your score is the average of all 6 responses. Fatigue: How confident are you that you can keep the fatigue caused by your disease from interfering with the things you want to do? Select Number: 10 Physical Discomfort or Pain: How confident are you that you can keep the physical discomfort or pain of your disease from interfering with the things you want to do? Select Number: 10 Emotional Distress: How confident are you that you can keep the emotional distress caused by your disease from interfering with the things you want to do? Select Number: 10 Other Symptoms or Health Problems: How confident are you that you can keep other symptoms or health problems from interfering with the things you want to do? Select Number: 10 Different Tasks and Activities: How confident are you that you can do the different tasks and activities needed to manage your health condition so as to reduce your need to see a doctor? Select Number: 10 Medication: How confident are you that you can do things other than just taking medication to reduce how much your illness affects your everyday life? Select Number: 10 Total Score:: 10 Nutrition Survey - Nutrition Survey Instructions Scoring Instructions: Scoring is as follows: Yes = 1 points. No = 0 point. Patient score that is >/=12 is considered to be at potential nutritional risk and could benefit from a referral to a registered dietitian. - Nutrition Survey Discharge Have you lost >10 lbs over the past 2 months without trying?: No Are you following a special diet at home for diabetes, low fat, or low salt?: No Are you interested in meeting with a dietitian for help understanding your diet? : Yes Do you eat less than 3 meals a day?: No Do you eat fatty meats (lynch, sausage, ribs, etc), fried foods, desserts, large amounts of salad dressings, margarine, butter, or cheese most days?: No Do you have food allergies? [Enter types in comment field]: No Do you eat in restaurants more than 3 times a week?: No Do you season food with salt, seasoning salt, or garlic salt?: No Do you used canned, boxed, frozen meals, or soups, seasoning packets?: Yes Total Score:: 2
== END 2018-02-24 23:59 ==
LOC: PR 08:00
PROVIDERS: Family Provider Student in an Organized Health Care Education/Training Program; PCP Student in an Organized Health Care Education/Training Program; Visit Provider Internal Medicine Pulmonary Disease
DX: J44.9 Chronic obstructive pulmonary disease, unspecified (principal)
CPT/HCPCS: 97150; G0424

== ENCOUNTER 2024-05-06 10:20 | Emergency (ER) | payer BC, MEDICARE, SELFPAY ==
[2024-05-06 10:21] VITALS: BP 161/76; PULSE 91; RESP 20; TEMP 36.4; O2SAT 90
--- NOTE | 2024-05-06 10:50 | ED.VIS.LOWEX ---
HPI History of Present Illness HPI Narrative: Patient presents with redness to the lateral aspect of her right leg that has been getting worse over the past month. Patient states she was recently on a course of doxycycline for 1 week. Patient states it started to improve but then has returned. Patient states she was seen at the urgent care at the [facility] prior to starting the doxycycline. Patient states that he took a culture of the wound which was showed skin lyssa. Patient denies any fevers or chills. Patient denies any discharge or drainage. Patient denies any paresthesias or weakness. Patient states her initial injury was when she tripped over her oxygen tank and caused a scrape in her right lower leg. Chief Complaint: Wound Informant: patient Onset/Context/Timing Onset: Month(s) (1) Context: Gradual Onset Timing: Continuous Quality of Pain: Dull and Aching Location: Lateral aspect right lower leg Worsened by: Nothing Relieved by: Nothing Associated Symptoms Associated Symptoms: Negative for Parasthesia, Weakness or Loss of Funtion Narrative Tetanus Immunization: 5-10 years [facility] Medical History (Updated 05/06/24 @ 11:[address] Dane Kurtz, DO) COPD (chronic obstructive pulmonary disease) Home Medications ?Medication ?Instructions ?Recorded ?Last Taken ?Type Beclomethasone Diprop Inhaler 2 puff inhalation BID breathing 04/15/17 04/15/17 15:30 History [Qvar 80 Mcg Inhaler] albuterol sulfate 90 mcg/actuation 2 puff inhalation Q4H PRN PRN 04/15/17 04/15/17 18:00 History aerosol inhaler (ProAir HFA) Shortness Of Breath amlodipine 5 mg tablet 5 mg PO DAILY blood pressure 04/15/17 04/15/17 02:00 History multivitamin (Daily Multiple 1 ea PO DAILY 04/15/17 04/15/17 02:00 History tablet) salmeterol 50 mcg/dose blister 1 puff inhalation Q12 04/15/17 04/15/17 15:30 History powder for inhalation (Serevent Diskus) tiotropium bromide 18 mcg capsule 1 puff inhalation DAILY 04/15/17 04/15/17 02:00 History with inhalation device (Spiriva with HandiHaler) triamterene 37.5 1 ea PO DAILY blood pressure 04/15/17 04/15/17 02:00 History mg-hydrochlorothiazide 25 mg tablet guaifenesin 1,200 mg tablet, 1,200 mg PO BID #20 tabs 04/17/17 Unknown Rx extended release 12 hr (Mucus Relief ER) levofloxacin 500 mg tablet 500 mg PO DAILY #5 tabs 04/17/17 Unknown Rx nystatin 100,000 unit/mL oral 500,000 unit (5 mL) PO 4X/DAY ##1 04/17/17 Unknown Rx suspension prednisone 10 mg tablets in a dose 10 mg PO DAILY ##30 04/17/17 Unknown Rx pack Oxygen, Home [Home Oxygen] 2 - 4 lpm 11/13/17 Unknown History ascorbic acid (vitamin C) 500 mg 500 mg PO 11/13/17 Unknown History capsule cephalexin 500 mg capsule 500 mg PO Q6 #40 CAPSULES 05/06/24 Unknown Rx Allergy/AdvReac Type Severity Reaction Status Date / Time No Known Allergies Allergy Verified 05/06/24 10:21 Surgical History (Updated 05/06/24 @ 11:[address] Dane Kurtz, DO) Hx of inguinal herniorrhaphy Social History Smoking Status: Former smoker ROS ROS ED Constitutional Constitutional ED: Denies chills or fever(s) Eyes Eyes: Denies blurry vision or change in vision ENT ENT ED: Denies rhinorrhea or sore throat Cardiovascular Cardiovascular: Denies chest pain or palpitations Respiratory/Chest Respiratory/Chest: Reports dyspnea; Denies cough Gastrointestinal Gastrointestinal: Denies nausea or vomiting Genitourinary Genitourinary ED: Denies dysuria or hematuria Musculoskeletal Musculoskeletal: Denies back pain or neck pain Integumentary Denies abscess or rash Neurologic Neurologic: Denies headache(s) or weakness Allergic/Immunologic Allergic/Immunologic ED: Denies mouth swelling or urticaria EXAM Physical Exam Const Vital Signs: 05/06/24 10:21 Temperature 97.6 F L Temperature Source Temporal Pulse Rate 91 Respiratory Rate 20 H Blood Pressure 161/76 H Blood Pressure Mean 104 Pulse Ox 90 Oxygen Delivery Method Nasal Cannula Oxygen Flow Rate (L/min) 2 Positive well nourished and well developed General Appearance ED: well developed and NAD HEENT Reports moist mucous membranes Extremity Extremity Narrative: There is some tenderness, erythema, and warmth over the lateral aspect of the right lower leg. There is a superficial healing abrasion over this area. There is no fluctuance. There is no evidence of any abscess. There is full range of motion. Strength is 5/5 bilaterally in the lower extremities. There are no sensory deficits noted. Pedal pulses are equal bilaterally. Neuro oriented x3, CN's II-XII intact bilaterally, moves all extremities and no sensory deficits noted Sensorium / Orientation: alert Motor Exam: strength 5/5 throughout Psych mental status grossly normal MDM MDM MDM Narrative Medical decision making narrative: Differential diagnosis includes cellulitis and sepsis. CBC will be obtained to assess for leukocytosis and anemia. Basic metabolic profile will be obtained to assess for electrolyte abnormality and renal function. Blood cultures will be obtained to assess for sepsis. Patient was given a dose of Ancef. Lab Data Attestation: I reviewed the patient's lab results. Lab results narrative: CBC was reviewed and was within normal limits. Basic metabolic profile was reviewed and was essentially within normal limits. Labs: Laboratory Results - last 24 hr 05/06/24 11:14 WBC 7.3 RBC 4.10 L Hgb 13.0 Hct 39.7 MCV 96.8 MCH 31.7 MCHC 32.7 RDW Std Deviation 52.0 H RDW Coeff of Karly 14.6 Plt Count 261 MPV 10.6 Immature Gran % (Auto) 0.600 Neut % (Auto) 78.5 H Lymph % (Auto) 10.9 L [place] % (Auto) 7.8 Eos % (Auto) 1.5 Baso % (Auto) 0.7 Absolute Neuts (auto) 5.7 Absolute Lymphs (auto) 0.79 L Nucleated RBC % 0 Sodium 142 Potassium 3.4 L Chloride 103 Carbon Dioxide 36.0 H Anion Gap 3 L BUN 13 Creatinine 0.66 Est GFR (MDRD) Af Amer 114 Est GFR (MDRD) Non-Af 95 BUN/Creatinine Ratio 19.6 Glucose 118 H Calcium 9.2 Treatment and Re-Evaluation Narrative: Patient was given a dose of Ancef here. Patient was given a prescription for Keflex. Patient was instructed to keep the wound clean and dry. Patient was instructed use Neosporin ointment to the area. Dressing was applied here. Patient was instructed to follow-up with her primary care physician in 5 to 7 days. Patient understood and was agreeable with the plan. All questions were answered. Discharge Plan Triage Chief Complaint: Wound ED Provider: Dane Kurtz Dx/Rx/DC Orders Clinical Impression: Cellulitis of right leg, COPD (chronic obstructive pulmonary disease) Instructions: ED Cellulitis Prescriptions: New cephalexin 500 mg capsule 500 mg PO Q6 Qty: 40 0RF No Action multivitamin [Daily Multiple] 1 EACH tablet 1 ea PO DAILY amlodipine 5 MG tablet 5 mg PO DAILY salmeterol [Serevent Diskus] 1 PUFF inhaler 1 puff inhalation Q12 Patient Comments: copd triamterene-hydrochlorothiazid 1 EACH tablet 1 ea PO DAILY Patient Comments: htn albuterol sulfate [ProAir HFA] 1 PUFF inhaler 2 puff inhalation Q4H PRN PRN (Reason: Shortness Of Breath) tiotropium bromide [Spiriva with HandiHaler] 1 PUFF inhaler 1 puff inhalation DAILY Patient Comments: COPD Beclomethasone Diprop Inhaler [Qvar 80 Mcg Inhaler] 1 PUFF inhaler 2 puff inhalation BID nystatin 500,000 UNIT/5 ML suspension 500,000 unit PO 4X/DAY Qty: 1 0RF Rx Instructions: 1 week supply levofloxacin 500 MG tablet 500 mg PO DAILY Qty: 5 0RF guaifenesin [Mucus Relief ER] 1,200 MG tablet 1,200 mg PO BID Qty: 20 0RF prednisone 10 MG tablets,dose pack 10 mg PO DAILY Qty: 30 0RF Rx Instructions: Take 4 tabs for 3 days, then 3 tabs for 3 days, then 2 tabs for 3 days, then 1 tab for 3 days, then stop ascorbic acid (vitamin C) 500 MG capsule 500 mg PO Oxygen, Home [Home Oxygen] 2 - 4 lpm NASAL Primary Care Provider: Phuc Martines Referrals: Phuc Martines DO [Primary Care Provider] - 5-7 Days Print Language: Spanish Disposition Disposition: Home, Self Care
[2024-05-06 11:37] LABS: Absolute Lymphocyte Count 0.79 X10^3/uL (0.83-4.51); Absolute Neutrophil Count 5.7 X10^3/uL (2.0-7.7); Basophil# 0.05 X10^3/uL; Basophil% 0.7 % (0-1); Eosinophil# 0.11 X10^3/uL; Eosinophils% 1.5 % (0-5); Hematocrit 39.7 % (37-47); Lymphocyte # 0.79 X10^3/ul (0.83-4.51); Lymphocyte % 10.9 % (19-41); Mean Corp Hgb Conc 32.7 g/dL (32-36); Mean Corpuscular Hgb 31.7 pg (27.0-32.0); Mean Corpuscular Volume 96.8 fL (81-99); Mean Platelet Vol. 10.6 fl (6.2-12.0); Monocyte# 0.57 X10^3/uL; Monocyte% 7.8 % (0-10); NRBC Flagged by Analyzer 0 % (0-5); Neutrophil # 5.71 X10^3/uL (2.7-7.7); Neutrophil % 78.5 % (47-70); Platelet Count 261 K/mm3 (150-450); RBC Distribution Width CV 14.6 % (11.6-14.6); White Blood Count 7.3 K/mm3 (4.4-11.0)
[2024-05-06] MEDS: Cefazolin 1 GM/50 ML BAG IV (11:39)
[2024-05-06 11:50] LABS: Anion Gap 3 (5-15); BUN 13 mg/dL (7-18); BUN/Creat Ratio 19.6 RATIO (10-20); Calcium,Total 9.2 mg/dL (8.5-10.1); Chloride 103 mmol/L (98-107); Creatinine, Serum 0.66 mg/dL (0.55-1.02); EST Glomerular Filtration Rate 95 mL/min (>60); Est Glom Filt Rate - Afr Amer 114 mL/min (>60); Glucose 118 mg/dL (74-106); Potassium 3.4 mmol/L (3.5-5.1); Sodium Level 142 mmol/L (136-145)
[2024-05-06 13:11] VITALS: BP 133/73; PULSE 79; RESP 19; TEMP 36.4; O2SAT 98
== END 2024-05-06 13:13 | disposition home or self-care (01) ==
PROVIDERS: Emergency Provider Emergency Medicine; PCP Student in an Organized Health Care Education/Training Program; Visit Provider Emergency Medicine
DX: L03.115 Cellulitis of right lower limb (principal); J44.9 Chronic obstructive pulmonary disease, unspecified; Z79.899 Other long term (current) drug therapy; Z87.891 Personal history of nicotine dependence
CPT/HCPCS: 80048; 85025; 87040; 96365; 99283; A4216

== ENCOUNTER 2025-02-19 12:50 | Inpatient (IN) | payer MEDICARE, BC, SELFPAY ==
[2025-02-19] VITALS (15 sets, daily range): BP systolic 120–159; BP diastolic 67–118; PULSE 96–123; RESP 18–28; TEMP 36.3–37.3; O2SAT 85–98; BMI 46.2; BMI 45.2
--- NOTE | 2025-02-19 13:09 | EX.ED.DYSGE1 ---
HPI History of Present Illness Chief Complaint: Shortness of Breath Narrative Narrative: Patient is a 69-year-old female past medical history of COPD on 3 L at rest nasal cannula, hypertension who presents to the emergency department chief complaint shortness of breath. Patient states the past few days she has noted that she had worsening shortness of breath especially with exertion. Patient states that her bilateral lower extremities have been swelling over the last week as well. Patient states that she feels very short of breath with exertion and when trying to talk. Patient denies any sick contacts states that she is not coughing up significant mount of phlegm. [facility] Medical History COPD (chronic obstructive pulmonary disease) Home Medications ?Medication ?Instructions ?Recorded ?Last Taken ?Type Oxygen, Home [Home Oxygen] 2 - 4 lpm QHS 11/13/17 02/18/25 History ascorbic acid (vitamin C) 500 mg 500 mg PO DAILY 11/13/17 02/18/25 History capsule albuterol sulfate 90 mcg/actuation 2 inh inhalation Q6H PRN shortness 02/19/25 Unknown History breath activated powder inhaler of breath amlodipine 10 mg tablet 10 mg PO DAILY 02/19/25 02/19/25 History fluticasone fur. 200 mcg-umeclid 1 ea inhalation DAILY 02/19/25 02/19/25 History 62.5 mcg-vilant 25 mcg inhalat.powder (Trelegy Ellipta) guaifenesin 1,200 mg tablet, 1,200 mg PO BID PRN cough 02/19/25 Unknown History extended release 12 hr (Mucus Relief ER) ipratropium 0.5 mg-albuterol 3 mg 3 ml inhalation Q6H PRN shortness 02/19/25 02/19/25 History (2.5 mg base)/3 mL nebulization of breath soln multivitamin (Daily Multi-Vitamin 1 tab PO DAILY 02/19/25 02/18/25 History tablet) sodium chloride 0.65 % nasal spray 1 spray intranasal BID PRN dry 02/19/25 Unknown History aerosol ([place] Saline) nasal passages triamcinolone acetonide 0.5 % 1 applic topical BID PRN itching 02/19/25 Unknown History topical cream triamterene 37.5 1 cap PO DAILY 02/19/25 02/18/25 History mg-hydrochlorothiazide 25 mg capsule Allergy/AdvReac Type Severity Reaction Status Date / Time ibuprofen (From Advil) Allergy Mild Hives Verified 02/19/25 13:14 Surgical History Hx of inguinal herniorrhaphy Social History Smoking Status: Former smoker ROS ROS ED ROS Narrative Constitutional: Denies fevers, chills, headaches Eyes: Denies change in vision double vision blurry vision Cardiovascular: Denies chest pain or palpitations Respiratory: Complains of shortness of breath as noted above denies coughing Abdomen: Denies nausea vomit diarrhea : Denies urinary symptoms Neurological: Denies numbness, weakness, tingling Musculoskeletal: Denies back pain Skin: Denies any rashes or lesions EXAM Physical Exam Narrative Exam Narrative: General: Patient lying in bed resting comfortably did not appear to be in acute distress Head: Atraumatic, normocephalic Eyes: PERRL bilaterally, EOMI bilateral, no conjunctival injection noted Neck: Soft, supple, trachea midline Cardiovascular: Patient is tachycardic Respiratory: Diminished breath sounds bilaterally, patient does have increased work of breathing noted on exam conversational dyspnea noted Abdomen: Soft, nondistended Extremities: +5/5 strength noted in the bilateral upper and lower extremities, pedal edema noted on exam bilaterally Neurological: Patient follow commands and that she was at [facility] year is 2024 Skin: Warm, dry, intact no rashes or lesions noted Const Vital Signs: 02/19/25 12:52 02/19/25 13:11 02/19/25 13:13 Temperature 99.2 F H Temperature Source Oral Pulse Rate 116 H Respiratory Rate 20 H Respiratory Effort Short of Breath Respiratory Pattern Blood Pressure 120/106 H Blood Pressure Mean 110 Pulse Ox 91 85 Oxygen Delivery Method Nasal Cannula Nasal Cannula Oxygen Flow Rate (L/min) 6 5 02/19/25 13:20 02/19/25 13:20 02/19/25 13:26 Temperature Temperature Source Pulse Rate 106 H 96 Respiratory Rate 22 H 24 H Respiratory Effort Respiratory Pattern Tachypnea Blood Pressure 130/67 H Blood Pressure Mean 88 Pulse Ox 97 98 Oxygen Delivery Method Nasal Cannula Nasal Cannula Oxygen Flow Rate (L/min) 6 6 02/19/25 13:53 02/19/25 14:43 Temperature 99.2 F H 98.8 F Temperature Source Oral Oral Pulse Rate 115 H 121 H Respiratory Rate 28 H 24 H Respiratory Effort Respiratory Pattern Blood Pressure 159/74 H 137/118 H Blood Pressure Mean 102 124 Pulse Ox 96 91 Oxygen Delivery Method Nasal Cannula Nasal Cannula Oxygen Flow Rate (L/min) 6 5 MDM MDM MDM Narrative Medical decision making narrative: Patient is a 69-year-old female who presented to the emergency department with a chief complaint of shortness of breath and bilateral lower extremity swelling. On the differential diagnosis includes but not limited to ACS, pneumonia, CHF, upper respiratory infection secondary viral etiology. Once workup is obtained and reviewed she will be reevaluated. Patient was noted to be hypoxic with 5 L of nasal cannula while talking to the mid 80s and she had conversational dyspnea associated with this. There is concern for hypervolemic state therefore 30 cc/kg bolus of IV fluids will not be given and should be given a 500 cc bolus. Patient be given 2 DuoNebs as well. Once workup is obtained reviewed she will be reevaluated. Patient CBC was reviewed and showed no evidence leukocytosis white blood count was 8.6, hemoglobin 13, plate count to be 231. Patient INR normal at 1, PT of 13.4. Patient sodium was normal at 142, calcium normal 3.6, creatinine 0.55. Patient's AST and ALT were 29 and 45 respectively, troponin and proBNP pending. Patient's EKG was reviewed and showed atrial flutter with a rate of 106 beats per minutes. Patient's chest x-ray reviewed by myself and by radiology which showed findings consistent with pulmonary venous congestion. Patient was given 40 mg of IV Lasix. Patient still tachycardic with a rate in the 120s therefore will be given 5 Lopressor. Patient's troponin was normal at less than 6, proBNP of 529, urinalysis pending. At this point time patient will require admission to the hospital for a likely CHF exacerbation given her dyspnea on exertion, conversational dyspnea, bilateral lower extremity swelling with evidence of vascular congestion on her x-ray of her chest. Will discuss case with hospitalist. Patient's case discussed with hospitalist Dr. Norton who accept the patient for admission. Patient was notified is agreeable this plan. We discussed using heparin for her atrial flutter given her new onset of this however will hold off for now in the hospital states that she will decide after she evaluates the patient the need for anticoagulation. Lab Data Labs: Laboratory Results - last 24 hr 02/19/25 02/19/25 13:09 14:35 WBC 8.6 RBC 4.16 L Hgb 13.0 Hct 41.2 MCV 99.0 MCH 31.3 MCHC 31.6 L RDW Std Deviation 53.2 H RDW Coeff of Karly 14.6 Plt Count 231 MPV 10.4 Immature Gran % (Auto) 0.200 Neut % (Auto) 80.0 H Lymph % (Auto) 9.8 L [place] % (Auto) 8.5 Eos % (Auto) 1.0 Baso % (Auto) 0.5 Absolute Neuts (auto) 6.9 Absolute Lymphs (auto) 0.84 Nucleated RBC % 0 PT 13.4 INR 1.0 APTT 27.1 Sodium 142 Potassium 3.6 Chloride 96 L Carbon Dioxide 34.4 H Anion Gap 11 BUN 15 Creatinine 0.55 L Estim Creat Clear Calc 87.97 Est GFR (MDRD) Non-Af 100 BUN/Creatinine Ratio 27.9 H Glucose 116 H Lactic Acid 1.5 Calcium 9.4 Total Bilirubin 0.69 AST 29 ALT 45 H Alkaline Phosphatase 80 Troponin T High Sens < 6 NT pro BNP II 529 Total Protein 7.2 Albumin 4.0 Globulin 3.3 Albumin/Globulin Ratio 1.2 Urine Color Straw Urine Clarity Clear Urine pH 6.0 Ur Specific [place] 1.010 Urine Protein Negative Urine Glucose (UA) Normal Urine Ketones Negative Urine Occult Blood Negative Urine Nitrite Negative Urine Bilirubin Negative Urine Urobilinogen Normal Ur Leukocyte Esterase 25 H Radiography Diagnostic Testing: Clinical Impression(s) from Imaging Studies Chest X-Ray 02/19/25 13:40 IMPRESSION: Pulmonary venous congestive changes. Reading Location: [facility] Discharge Plan Triage Chief Complaint: Shortness of Breath ED Provider: Linwood Ivy Dx/Rx/DC Orders Clinical Impression: Acute on chronic hypoxic respiratory failure, Dyspnea on exertion, Atrial flutter Prescriptions: No Action ascorbic acid (vitamin C) 500 MG capsule 500 mg PO DAILY Oxygen, Home [Home Oxygen] 2 - 4 lpm NASAL QHS albuterol sulfate 90 mcg/actuation aerosol powdr breath activated 2 inh inhalation Q6H PRN (Reason: shortness of breath) amlodipine 10 mg tablet 10 mg PO DAILY Trelegy Ellipta 200-62.5-25 mcg blister with device 1 ea inhalation DAILY triamcinolone acetonide 0.5 % cream 1 applic topical BID PRN (Reason: itching) ipratropium-albuterol 0.5 mg-3 mg(2.5 mg base)/3 mL solution for nebulization 3 ml inhalation Q6H PRN (Reason: shortness of breath) multivitamin [Daily Multi-Vitamin] Tablet 1 tab PO DAILY [place] Saline 0.65 % aerosol,spray 1 spray intranasal BID PRN (Reason: dry nasal passages) triamterene-hydrochlorothiazid 37.5-25 mg capsule 1 cap PO DAILY Patient Comments: PT TAKES IN AFTERNOON guaifenesin [Mucus Relief ER] 1,200 MG tablet 1,200 mg PO BID PRN (Reason: cough) Primary Care Provider: Phuc Martines Referrals: Phuc Martines DO [Primary Care Provider] - Print Language: Bel[place]ian Disposition Disposition: Acute Care Hospital [facility]
[2025-02-19] MEDS: Ipratropium/Albuterol Sulfate 3 ML AMPUL.NEB INHALATION ×2 (13:20)
[2025-02-19 13:22] LABS: Absolute Lymphocyte Count 0.84 X10^3/uL (0.83-4.51); Absolute Neutrophil Count 6.9 X10^3/uL (2.0-7.7); Basophil# 0.04 X10^3/uL; Basophil% 0.5 % (0-1); Eosinophil# 0.09 X10^3/uL; Hematocrit 41.2 % (37-47); Lymphocyte # 0.84 X10^3/ul (0.83-4.51); Lymphocyte % 9.8 % (19-41); Mean Corp Hgb Conc 31.6 g/dL (32-36); Mean Corpuscular Hgb 31.3 pg (27.0-32.0); Mean Platelet Vol. 10.4 fl (6.2-12.0); Monocyte# 0.73 X10^3/uL; Monocyte% 8.5 % (0-10); NRBC Flagged by Analyzer 0 % (0-5); Neutrophil # 6.88 X10^3/uL (2.7-7.7); Platelet Count 231 K/mm3 (150-450); RBC Distribution Width CV 14.6 % (11.6-14.6); RBC Distribution Width SD 53.2 fl (35.1-43.9); Red Blood Count 4.16 M/mm3 (4.2-5.4); White Blood Count 8.6 K/mm3 (4.4-11.0)
[2025-02-19 13:31] LABS: Partial Thromboplast Time 27.1 Seconds (24.1-36.2); Prothrombin Time (Protime)PT. 13.4 SECONDS (11.7-14.9)
[2025-02-19] MEDS: MethylPREDNISolone 125 MG/2 ML Vial IV (13:39)
[2025-02-19] MEDS: 0.9% Normal Saline (500mL Bag) 500 ML 999 ML IV (13:39)
--- NOTE | 2025-02-19 13:40 | RAD_ITS ---
PROCEDURE: CHEST PA AND LATERAL 02/19/2025 REASON FOR EXAM: SOB TECHNIQUE: Frontal and lateral views of the chest. FINDINGS: Lungs: Pulmonary venous congestive changes are suspected. No pneumonia. Pleura: No pleural effusions, thickening, or pneumothorax. Heart: Mild cardiac enlargement. Mediastinum/Elyssa: Unremarkable. Great vessels: Unremarkable. Bones/soft tissues: Unremarkable. RAD/Chest PA and Lateral IMPRESSION: Pulmonary venous congestive changes. Reading Location: [facility]
[2025-02-19 13:45] LABS: ALB/GLOB Ratio 1.2 RATIO (0.9-2.4); AST(SGOT) 29 U/L (<=31); Alanine Aminotransfer ALT/SGPT 45 U/L (<=34); Alkaline Phosphatase 80 U/L (35-104); Anion Gap 11 (5-15); BUN 15 mg/dL (4-19); BUN/Creat Ratio 27.9 RATIO (10-20); Calcium,Total 9.4 mg/dL (7.6-11.0); Carbon Dioxide 34.4 mmol/L (21.0-32.0); Chloride 96 mmol/L (98-108); Creatinine, Serum 0.55 mg/dL (0.70-1.20); EST Glomerular Filtration Rate 100 (>60); Estimated Creatinine Clearance 87.97 ml/min (50-250); Globulin 3.3 g/dL (2.2-4.2); Glucose 116 mg/dL (70-99); Potassium 3.6 mmol/L (3.3-5.1); Protein, Total 7.2 g/dL (5.9-8.4); Sodium Level 142 mmol/L (133-145); Total Bilirubin 0.69 mg/dL (0.00-1.30)
[2025-02-19] MEDS: Furosemide 40 MG/4 ML Vial IV ×2 (14:01→18:39)
[2025-02-19 14:06] LABS: Lactic Acid 1.5 mmol/L (0.0-2.0)
[2025-02-19 14:46] LABS: Bacteria 0 SEEN /hpf (None Seen); Mucous, Urine 0 SEEN /hpf (<or=2+); Red Blood Cells-Urine 0 SEEN /hpf (0-5)
[2025-02-19 14:46] LABS: Pro- Brain NATRIURETIC PEPTIDE 529 pg/mL (<=900); Troponin T High Sensitivity < 6 ng/L (<=14)
[2025-02-19 14:52] LABS: Color, Urine Straw (Yellow); Glucose, Dipstick Normal (Normal); Ketone-Dipstick Negative (Negative); Leukocyte Esterase-Dipstick 25 /ul (Negative); Nitrite-Dipstick Negative (Negative); Occult Blood-Urine Negative /ul (Negative); Protein-Dipstick Negative (Negative); Urine Bilirubin Dipstick Negative (Negative); Urine Clarity Clear (Clear); Urine Urobilinogen Normal (Normal)
[2025-02-19] MEDS: Metoprolol Tartrate 5 MG/5 ML Vial IV (15:04)
[2025-02-19 15:06] LABS: Squamous Epithelial Cells - UA 0-5 SEEN /hpf (5-10); White Blood Cells 0-5 SEEN /hpf (0-5)
--- NOTE | 2025-02-19 15:48 | PCM.HP.STD ---
HPI - General General Date of Admission: 02/19/25 Date of Service: 02/19/25 Chief Complaint: Increase shortness of breath and lower extremity swelling HPI Narrative RAJENDRA MARTINEZ, is a 69-year-old female with a history of COPD on 3 L nasal cannula and hypertension who presented to [facility] ED 02/19/2025 with increased shortness of breath particularly on exertion for the past several days as well as increased bilateral lower extremity swelling this past week and conversational dyspnea. On arrival patient dropped down to 85% on 5 L of nasal cannula with respiratory rate up to 28, blood pressure 120/106 with a heart rate of 116 and temperature 99.2. CBC and BMP fairly benign however chest x-ray did report pulmonary venous congestive changes. Patient given IV Lasix. Patient also noted to be in what appeared to be A-fib versus flutter with variable block and was given 5 of IV Lopressor due to a heart rate in the 120s. Hospitalist contacted for admission for possible new onset heart failure. Patient evaluated with friend at bedside, patient reports her breathing has gotten worse over the past year and she had a lung cancer screening which showed inflammation that developed but then subsequently improved and she reports is being monitored but they were not sure what caused it. She also notes for the last 7 to 10 days she had increased swelling in her lower extremities with increasing shortness of breath on exertion, denies overt chest pain but sometimes when she lays on her left side will have a GIB feeling on the left side of her back, this happened 3 times over several months. Has a little bit of a dry cough but minimal, does have some nasal congestion and reports when she wakes up she has some pasty feeling on her tongue. Denies history of ROXY and reports she did a previous sleep study which was negative. Does endorse drinking several mixed drinks a day and estimates that it equals about 4 shots a day. She does not note any history of withdrawal symptoms. [facility] Medical History COPD (chronic obstructive pulmonary disease) Home Medications ?Medication ?Instructions ?Recorded ?Last Taken ?Type Oxygen, Home [Home Oxygen] 2 - 4 lpm QHS 11/13/17 02/18/25 History ascorbic acid (vitamin C) 500 mg 500 mg PO DAILY 11/13/17 02/18/25 History capsule albuterol sulfate 90 mcg/actuation 2 inh inhalation Q6H PRN shortness 02/19/25 Unknown History breath activated powder inhaler of breath amlodipine 10 mg tablet 10 mg PO DAILY 02/19/25 02/19/25 History fluticasone fur. 200 mcg-umeclid 1 ea inhalation DAILY 02/19/25 02/19/25 History 62.5 mcg-vilant 25 mcg inhalat.powder (Trelegy Ellipta) guaifenesin 1,200 mg tablet, 1,200 mg PO BID PRN cough 02/19/25 Unknown History extended release 12 hr (Mucus Relief ER) ipratropium 0.5 mg-albuterol 3 mg 3 ml inhalation Q6H PRN shortness 02/19/25 02/19/25 History (2.5 mg base)/3 mL nebulization of breath soln multivitamin (Daily Multi-Vitamin 1 tab PO DAILY 02/19/25 02/18/25 History tablet) sodium chloride 0.65 % nasal spray 1 spray intranasal BID PRN dry 02/19/25 Unknown History aerosol (Bronson Saline) nasal passages triamcinolone acetonide 0.5 % 1 applic topical BID PRN itching 02/19/25 Unknown History topical cream triamterene 37.5 1 cap PO DAILY 02/19/25 02/18/25 History mg-hydrochlorothiazide 25 mg capsule Allergy/AdvReac Type Severity Reaction Status Date / Time ibuprofen (From Advil) Allergy Mild Hives Verified 02/19/25 13:14 Surgical History Hx of inguinal herniorrhaphy Social History Smoking Status: Former smoker ROS ROS Narrative General: Denies fever/chills HENT: Denies headache, has some chronic nasal congestion, denies sore throat EYES: Denies changes in vision Resp: Denies significant cough, occasional dry cough, has had increased shortness of breath over the past year but worse over the past week Cardiac: Denies chest pain, sometimes will have some left-sided back pain when she is laying there GI: Symptoms some left abdominal pain which she attributes to a known splenic cyst, denies changes in bowel, denies nausea/vomiting : Denies changes in urination Extremity: Increased swelling lower extremities over the past 7 to 10 days MSK: Denies weakness Neuro: Denies any numbness/tingling Heme: Denies any bleeding or bruising Skin: Denies rashes Psychiatric: No complaints voiced Vital Signs Vital Signs Vital Signs: 02/19/25 12:52 02/19/25 13:11 02/19/25 13:13 Temperature 99.2 F H Temperature Source Oral Pulse Rate 116 H Respiratory Rate 20 H Respiratory Effort Short of Breath Respiratory Pattern Blood Pressure 120/106 H Blood Pressure Mean 110 Pulse Ox 91 85 Oxygen Delivery Method Nasal Cannula Nasal Cannula Oxygen Flow Rate (L/min) 6 5 02/19/25 13:20 02/19/25 13:20 02/19/25 13:26 Temperature Temperature Source Pulse Rate 106 H 96 Respiratory Rate 22 H 24 H Respiratory Effort Respiratory Pattern Tachypnea Blood Pressure 130/67 H Blood Pressure Mean 88 Pulse Ox 97 98 Oxygen Delivery Method Nasal Cannula Nasal Cannula Oxygen Flow Rate (L/min) 6 6 02/19/25 13:53 02/19/25 14:43 02/19/25 15:07 Temperature 99.2 F H 98.8 F 98.8 F Temperature Source Oral Oral Pulse Rate 115 H 121 H 96 Respiratory Rate 28 H 24 H 18 Respiratory Effort Respiratory Pattern Blood Pressure 159/74 H 137/118 H 125/80 H Blood Pressure Mean 102 124 95 Pulse Ox 96 91 91 Oxygen Delivery Method Nasal Cannula Nasal Cannula Oxygen Flow Rate (L/min) 6 5 Weight Weight: 122.1 kg Body Mass Index (BMI) 46.2 Physical Exam Narrative General: Alert, oriented HEENT: Atraumatic, normocephalic Eyes: Anicteric, normal conjunctiva, extraocular movements grossly intact Neck: Supple Respiratory: Increased respiratory effort and diminished bilaterally with poor airflow Cardiovascular: Irregularly irregular GI: Soft, nontender, nondistended Extremities: 1+ bilateral lower extremity edema Musculoskeletal: Moving all extremities Neuro: No overt focal neurological deficits Skin: No rashes appreciated Psych: Cooperative Results Lab / Micro Data 02/19/25 13:09 02/19/25 13:09 Labs: Laboratory Results - last 24 hr 02/19/25 13:09: WBC 8.6, RBC 4.16 L, Hgb 13.0, Hct 41.2, MCV 99.0, MCH 31.3, MCHC 31.6 L, RDW Std Deviation 53.2 H, RDW Coeff of Karly 14.6, Plt Count 231, MPV 10.4, Immature Gran % (Auto) 0.200, Neut % (Auto) 80.0 H, Lymph % (Auto) 9.8 L, [place] % (Auto) 8.5, Eos % (Auto) 1.0, Baso % (Auto) 0.5, Absolute Neuts (auto) 6.9, Absolute Lymphs (auto) 0.84, Nucleated RBC % 0, PT 13.4, INR 1.0, APTT 27.1, Sodium 142, Potassium 3.6, Chloride 96 L, Carbon Dioxide 34.4 H, Anion Gap 11, BUN 15, Creatinine 0.55 L, Estim Creat Clear Calc 87.97, Est GFR (MDRD) Non-Af 100, BUN/Creatinine Ratio 27.9 H, Glucose 116 H, Lactic Acid 1.5, Calcium 9.4, Total Bilirubin 0.69, AST 29, ALT 45 H, Alkaline Phosphatase 80, Troponin T High Sens < 6, NT pro BNP II 529, Total Protein 7.2, Albumin 4.0, Globulin 3.3, Albumin/Globulin Ratio 1.2 02/19/25 14:35: Urine Color Straw, Urine Clarity Clear, Urine pH 6.0, Ur Specific [place] 1.010, Urine Protein Negative, Urine Glucose (UA) Normal, Urine Ketones Negative, Urine Occult Blood Negative, Urine Nitrite Negative, Urine Bilirubin Negative, Urine Urobilinogen Normal, Ur Leukocyte Esterase 25 H, Urine RBC 0 SEEN, Urine WBC 0-5 SEEN, Ur Squamous Epith Cells 0-5 SEEN, Urine Bacteria 0 SEEN, Urine Mucus 0 SEEN Micro: Microbiology 02/19/25 13:10 Mucosa - Nose SARS-CoV-2, Influenza & RSV (PCR) - Final Imaging Radiology Impression Chest X-Ray 02/19/25 13:40 IMPRESSION: Pulmonary venous congestive changes. Reading Location: [facility] Assessment & Plan Assessment/Plan (1) Acute on chronic hypoxic respiratory failure: PLAN: Plan # Acute on chronic hypoxic respiratory failure in setting of COPD on 3 L home O2 suspect secondary to new onset heart failure -Patient had 85% on 5 L in the ED, improved to 88% on 5 L during my evaluation, initially was in respiratory distress that improved to the point patient was no longer conversationally dyspneic on my exam -Chest x-ray with pulmonary venous congestive changes and patient with increasing bilateral lower extremity edema -Admit to telemetry -proBNP 529 however patient's chest x-ray, lower extremity edema, clinical picture consistent with fluid overload -CXR with pulmonary congestive changes -Continue IV lasix - No previous echo available in our system - Echo ordered -Daily weights, I's and O's -Fluid restriction, heart healthy diet - Patient 88 to 91% on 5 L nasal cannula however she is sitting up in bed and does have increased work of breathing but no longer conversationally dyspneic and is slowly improving, discussed that if her O2 sat would drop or remain low despite interventions she would likely need BiPAP even if only temporary, patient agreeable # New onset A-fib/flutter -EKG on presentation showed what appeared to be a flutter with variable block, patient with heart rate up in the 120s and was given IV Lopressor in the ED, patient appeared irregular on telemetry and appeared to be A-fib and repeat EKG also with questionable flutter - May now be a new onset heart failure due to patient being in what appears to be fib/flutter and initially had elevated rate up to 120s, difficult to tell if patient's elevated rate caused the fluid overload or if patient's hypoxia caused her to be tachycardic but she did seem to improve with Lopressor -Check TSH - Start Eliquis - Will start low-dose of metoprolol and titrate as needed, will avoid diltiazem if possible due to concern for new onset heart failure with exacerbation, if needed could always temporarily switch to amiodarone based on patient's clinical status -Check echo # COPD - Continue home inhalers - Does not seem to be in exacerbation, seems that this is due to fluid overload - Incentive spirometer #Hypertension - Will hold patient's home antihypertensives to allow room for diuresis - Will also be starting low-dose metoprolol as above #Increased etoh intake -Patient drinks the equivalent of about 4 shots daily, does not note any history of alcohol withdrawal but will place patient on CIWA in an abundance of caution with low-dose coverage #Morbid obesity -BMI documented as 46.2 kg/m? at time of admission -Complicates treatment, prognosis, outcomes -Recommend weight loss and lifestyle changes #DVT ppx: Starting on Eliquis as above Kym Norton MD Time spent in the patient's overall evaluation, decision-making process, review of diagnostic data, adjustment of management, discussion with other providers, nursing and ancillary staff involved in patient's care documentation, 78 Minutes Charges/Coding Visit Charges Inpatient E&M: 33519 Init Hosp L3
[2025-02-19 16:16] LABS: Troponin T High Sens 2 HR < 6 ng/L (<=14)
--- NOTE | 2025-02-19 16:38 | ECHOCS_ITS ---
Reason For Study Reason For Study: CHF Procedure This was a 2D Doppler, Color Flow transthoracic echocardiogram. The study was technically difficult. Contrast injection was performed. Exam performed portable in patient room. Left Ventricle Normal left ventricular thickness. Borderline LV systolic function. Estimated LVEF 45-50%. Unable to assess diastolic dysfunction due to arrhythmia. Right Ventricle Normal RV size. Moderate global right ventricular systolic dysfunction. Atria There is mild biatrial dilatation. Mitral Valve Moderate (2+) eccentric mitral valve insufficiency. Tricuspid Valve Mild tricuspid valve insufficiency. Right ventricular systolic pressure estimated to be 53 mmHg. Aortic Valve Aortic sclerosis, no stenosis. Pulmonic Valve The pulmonic valve is not well visualized. Great Vessels Normal sized aortic root. Pericardium/Pleural No pericardial effusion. Medication Diluted definity 4ml given slow IV push to enhance endocardial definition. MMode/2D Measurements & Calculations LVIDd: 5.0 cm IVSd: 0.96 cm Ao root diam: 3.5 cm LVIDs: 3.4 cm LVPWd: 0.95 cm RVDd: 3.8 cm FS: 32.1 % LAV(MOD-bp): 76.0 ml LVAd ap4: 41.2 cm2 SV(MOD-sp4): 81.0 ml LAV(MOD-bp) Indexed: 34.6 ml/m2 LVLd ap4: 8.2 cm SI(MOD-sp4): 36.9 ml/m2 LAV(MOD-sp2): 79.1 ml EDV(MOD-sp4): 176.2 ml LAV(MOD-sp4): 69.5 ml EDV(sp4-el): 176.5 ml LVAs ap4: 28.2 cm2 LVLs ap4: 7.1 cm ESV(MOD-sp4): 95.2 ml ESV(sp4-el): 94.3 ml EF(MOD-sp4): 46.0 % EF(sp4-el): 46.6 % SV(sp4-el): 82.2 ml LA A4 area: 23.1 cm2 LA dimension(2D): 4.4 cm RA A4 area: 22.2 cm2 Doppler Measurements & Calculations MV E max kenneth: 120.2 cm/sec MV V2 max: 131.0 cm/sec Ao V2 max: 174.1 cm/sec MV max P.9 mmHg Ao max P.2 mmHg MV V2 mean: 88.3 cm/sec Ao V2 mean: 122.7 cm/sec MV mean P.7 mmHg Ao mean P.9 mmHg MV V2 VTI: 27.4 cm Ao V2 VTI: 33.7 cm AV (velocity ratio): 0.66 LV V1 max: 120.9 cm/sec MR max kenneth: 475.5 cm/sec TR max kenneth: 307.8 cm/sec LV V1 max P.0 mmHg MR max P.5 mmHg TR max P.9 mmHg LV V1 mean P.5 mmHg MR mean kenneth: 345.4 cm/sec LV V1 mean: 86.3 cm/sec MR mean P.6 mmHg LV V1 VTI: 22.2 cm MR VTI: 148.2 cm ECHO/Echo Complete W/ Contrast Interpretation Summary Borderline LV systolic function. Estimated LVEF 45-50%. Moderate global right ventricular systolic dysfunction. There is mild biatrial dilatation. Moderate (2+) eccentric mitral valve insufficiency. Mild tricuspid valve insufficiency. Right ventricular systolic pressure estimated to be 53 mmHg. The study was technically difficult. Ordering Physician: Kym Norton Performed By: Prieto Mcbride RCS
[2025-02-19 18:35] LABS: Troponin T High Sens 4 HR < 6 ng/L (<=14)
[2025-02-19] MEDS: APIXABAN 5 MG TABLET PO (18:39)
[2025-02-19] MEDS: Metoprolol Tartrate 25 MG Tablet 12.5 MG PO (20:11)
[2025-02-20] VITALS (12 sets, daily range): BP systolic 115–138; BP diastolic 60–81; PULSE 74–110; RESP 16–22; TEMP 36.1–37; O2SAT 93–99; BMI 45.2
[2025-02-20 06:02] LABS: Hematocrit 39.2 % (37-47); Hemoglobin 12.4 g/dL (12.0-15.0); Mean Corp Hgb Conc 31.6 g/dL (32-36); Mean Corpuscular Hgb 31.2 pg (27.0-32.0); Mean Corpuscular Volume 98.7 fL (81-99); Mean Platelet Vol. 11.2 fl (6.2-12.0); Platelet Count 223 K/mm3 (150-450); RBC Distribution Width CV 14.4 % (11.6-14.6); Red Blood Count 3.97 M/mm3 (4.2-5.4); White Blood Count 8.2 K/mm3 (4.4-11.0)
[2025-02-20 06:25] LABS: Thyroid Stim Hormone (TSH) 0.626 uIU/mL (0.300-4.200)
[2025-02-20 06:40] LABS: Magnesium 1.9 mg/dL (1.5-2.2)
[2025-02-20] MEDS: Ipratropium/Albuterol Sulfate 3 ML AMPUL.NEB INHALATION ×3 (07:17→19:31)
[2025-02-20] MEDS: Budesonide Respules 0.5 MG/2 ML AMPUL.NEB. INHALATION ×2 (07:17→19:32)
[2025-02-20 07:32] LABS: Cholesterol 183 mg/dL (<=200); High Density Lipoprotein 70 mg/dL; Low Density Lipoprotein Calc. 101 mg/dL; Triglycerides 61 mg/dL; Very Low Density Lipoprotein 12 mg/dL (5-40); cholesterol:hdl ratio screen 2.63
[2025-02-20 07:33] LABS: ALB/GLOB Ratio 1.2 RATIO (0.9-2.4); AST(SGOT) 27 U/L (<=31); Alanine Aminotransfer ALT/SGPT 42 U/L (<=34); Albumin, Serum 3.8 g/dL (3.4-4.8); Alkaline Phosphatase 72 U/L (35-104); Anion Gap 13 (5-15); BUN 17 mg/dL (4-19); BUN/Creat Ratio 30.9 RATIO (10-20); Calcium,Total 8.9 mg/dL (7.6-11.0); Carbon Dioxide 34.3 mmol/L (21.0-32.0); Chloride 95 mmol/L (98-108); Creatinine, Serum 0.56 mg/dL (0.70-1.20); EST Glomerular Filtration Rate 100 (>60); Estimated Creatinine Clearance 86.85 ml/min (50-250); Globulin 3.2 g/dL (2.2-4.2); Glucose 141 mg/dL (70-99); Potassium 3.8 mmol/L (3.3-5.1); Sodium Level 142 mmol/L (133-145); Total Bilirubin 0.43 mg/dL (0.00-1.30)
--- NOTE | 2025-02-20 08:07 | PCM.PN.HOSP ---
Reason for Visit Reason for Visit: Shortness of breath/lower extremity swelling Subjective Subjective Patient states she notices that her swelling is better. She stated she had some tingling in her hands which she thought was related to carpal tunnel but that is gone since her swelling is better as well. Still on oxygen above her baseline of 3 L. But overall states she is much better than on presentation. Heart rates are better controlled overall. Objective Data Objective Data Vital Signs: Vital Signs Temp Pulse Resp BP Pulse Ox O2 Del Method O2 Flow Rate 97.8 F 97 18 118/67 98 Nasal Cannula 6 02/20/25 03:00 02/20/25 03:00 02/20/25 03:00 02/20/25 03:00 02/20/25 03:00 02/20/25 03:00 02/20/25 03:00 Oxygen Flow Rate (L/min) 6 Oxygen Delivery Method Nasal Cannula Weight: 119.5 kg Body Mass Index (BMI) 45.2 Intake & Output: Intake and Output for Last 24 Hours 02/18/25 02/19/25 02/20/25 23:59 23:59 23:59 Intake Total 680 / 680 400 / 400 Output Total 900 / 900 Balance -220 / -220 400 / 400 Lab / Micro Data 02/20/25 05:01 02/20/25 05:01 Labs: Laboratory Results - last 24 hr 02/19/25 13:09: WBC 8.6, RBC 4.16 L, Hgb 13.0, Hct 41.2, MCV 99.0, MCH 31.3, MCHC 31.6 L, RDW Std Deviation 53.2 H, RDW Coeff of Karly 14.6, Plt Count 231, MPV 10.4, Immature Gran % (Auto) 0.200, Neut % (Auto) 80.0 H, Lymph % (Auto) 9.8 L, Patrick % (Auto) 8.5, Eos % (Auto) 1.0, Baso % (Auto) 0.5, Absolute Neuts (auto) 6.9, Absolute Lymphs (auto) 0.84, Nucleated RBC % 0, PT 13.4, INR 1.0, APTT 27.1, Sodium 142, Potassium 3.6, Chloride 96 L, Carbon Dioxide 34.4 H, Anion Gap 11, BUN 15, Creatinine 0.55 L, Estim Creat Clear Calc 87.97, Est GFR (MDRD) Non-Af 100, BUN/Creatinine Ratio 27.9 H, Glucose 116 H, Lactic Acid 1.5, Calcium 9.4, Total Bilirubin 0.69, AST 29, ALT 45 H, Alkaline Phosphatase 80, Troponin T High Sens < 6, NT pro BNP II 529, Total Protein 7.2, Albumin 4.0, Globulin 3.3, Albumin/Globulin Ratio 1.2 02/19/25 14:35: Urine Color Straw, Urine Clarity Clear, Urine pH 6.0, Ur Specific [place] 1.010, Urine Protein Negative, Urine Glucose (UA) Normal, Urine Ketones Negative, Urine Occult Blood Negative, Urine Nitrite Negative, Urine Bilirubin Negative, Urine Urobilinogen Normal, Ur Leukocyte Esterase 25 H, Urine RBC 0 SEEN, Urine WBC 0-5 SEEN, Ur Squamous Epith Cells 0-5 SEEN, Urine Bacteria 0 SEEN, Urine Mucus 0 SEEN 02/19/25 15:45: Troponin T Hi Sens 2 Hr < 6 02/19/25 17:54: Troponin T Hi Sens 4Hr < 6 02/20/25 05:01: WBC 8.2, RBC 3.97 L, Hgb 12.4, Hct 39.2, MCV 98.7, MCH 31.2, MCHC 31.6 L, RDW Std Deviation 52.0 H, RDW Coeff of Karly 14.4, Plt Count 223, MPV 11.2, Sodium 142, Potassium 3.8, Chloride 95 L, Carbon Dioxide 34.3 H, Anion Gap 13, BUN 17, Creatinine 0.56 L, Estim Creat Clear Calc 86.85, Est GFR (MDRD) Non-Af 100, BUN/Creatinine Ratio 30.9 H, Glucose 141 H, Calcium 8.9, Magnesium 1.9, Total Bilirubin 0.43, AST 27, ALT 42 H, Alkaline Phosphatase 72, Total Protein 7.0, Albumin 3.8, Globulin 3.2, Albumin/Globulin Ratio 1.2, Triglycerides 61, Cholesterol 183, LDL Cholesterol, Calc 101, VLDL Cholesterol 12, HDL Cholesterol 70, Cholesterol/HDL Ratio 2.63, TSH 0.626 Micro: Microbiology 02/19/25 13:10 Mucosa - Nose SARS-CoV-2, Influenza & RSV (PCR) - Final Radiography Diagnostic Testing: Radiology Impression Chest X-Ray 02/19/25 13:40 IMPRESSION: Pulmonary venous congestive changes. Reading Location: [facility] Physical Exam Const alert, oriented x3, no apparent distress and well nourished; Negative for average body habitus or healthy appearing Constitutional Narrative: Morbidly obese, white female, sitting up in bed, watching television and talking on the phone. Hangs up upon my arrival, appears comfortable, nontoxic, remains on 6 L nasal cannula at this time but no dyspnea on conversation HEENT head/scalp atraumatic and moist oral mucous membranes HEENT Narrative: Mallampati 3-4, no thrush Head and Scalp: normocephalic Resp normal respiratory effort, no retractions, no use of accessory muscles and clear to auscultation bilaterally Resp Narrative: Crackles at bases bilaterally Auscultation: rales; Negative for rhonchi or wheezes Cardio regular rate, S1 normal heart sound, S2 normal heart sound, no murmurs, no rub, no gallops and no clicks; Negative for regular rhythm Cardio Narrative: Crackles at bases bilaterally GI normal to inspection, nondistended, normoactive bowel sounds, soft to palpation and non-tender GI Narrative: Large protuberant abdomen Extremity Extremity Narrative: Trace bilateral lower extremity edema, no edema in upper extremities today, pedal pulses are 2+, radial pulses are 2+, no clubbing or cyanosis Neuro oriented x3, moves all extremities and no focal motor deficits Speech: speech normal Psych affect normal Psych Narrative: Very pleasant, interacts appropriately Assessment & Plan Assessment/Plan (1) Atrial flutter: (2) Acute on chronic hypoxic respiratory failure: (3) Shortness of breath: PLAN: Plan Acute on chronic hypoxic respiratory failure secondary to new onset CHF of unknown type - Patient on 3 L at baseline - Currently requiring 6 L -Wean as able -Will need amatory pulse ox prior to discharge - Chest x-ray was consistent with venous pulmonary congestion and patient has increased bilateral lower extremity edema - Continue IV diuretics - Echocardiogram is pending - Strict I's and O's - Continue daily weights - Continue fluid restriction - Add sodium restriction to 3 g daily - Suspect patient has obstructive sleep apnea baseline--> consider AutoPap if patient agreeable - COVID/flu/RSV is negative next-check respiratory viral panel - Check CTA of the chest New onset A-fib/flutter - EKG on presentation showed flutter with variable block - Continue Eliquis - Echocardiogram pending - Heart rates are better - Increase metoprolol to 50 twice daily to maximize rate control - TSH was in normal limits - Continue telemetry Essential hypertension - Hold triamterene/HCTZ - Hold home amlodipine - Metoprolol added for heart rate control and will increase dose to 25 p.o. twice daily - ongoing IV diuretics COPD - Patient follows with pulmonary medicine at [facility] - Does not seem to be in acute exacerbation at this time - Is on chronic oxygen at 3 L - Hold home inhalers - Continue nebulizers - Continue home guaifenesin - Recommend ongoing outpatient follow-up Obesity - BMI is 45.2 - Complicates treatment, prognosis, outcomes - Highly suspect patient has obstructive sleep apnea baseline - Will discuss and see if she is willing to try AutoPap while hospitalized as this would help offload her heart some DVT prophylaxis -Continue Eliquis 5 mg p.o. twice daily CODE STATUS - Full code as verified on admission Charges/Coding Visit Charges Inpatient E&M: 30926 Subs Hosp L2
--- NOTE | 2025-02-20 08:19 | CT_ITS ---
EXAM: CT Angiography Chest Without and With Intravenous Contrast CLINICAL INDICATION: HYPOXIA TECHNIQUE: Axial computed tomographic angiography images of the chest without and with intravenous contrast. This CT exam was performed using one or more of the following dose reduction techniques: automated exposure control, adjustment of the mA and/or kV according to patient size, and/or use of iterative reconstruction technique. MIP reconstructed images were created and reviewed. COMPARISON: No relevant prior studies available. FINDINGS: PULMONARY ARTERIES: Unremarkable. No pulmonary embolism. AORTA: No acute findings. No thoracic aortic aneurysm. LUNGS AND PLEURAL SPACES: Lung emphysema/COPD with bibasilar atelectasis or scarring and bilateral apical scarring, some of which has of the nodular configuration. Repeat CT in 6 months is recommended. No mass. No significant effusion. No pneumothorax. HEART: Unremarkable. No cardiomegaly. No significant pericardial effusion. No evidence of RV dysfunction. BONES/JOINTS: No acute fracture. No dislocation. SOFT TISSUES: Unremarkable. LYMPH NODES: Unremarkable. No enlarged lymph nodes. CT/CTA Chest W/WO Contrast IMPRESSION: 1. No pulmonary embolism. 2. Lung emphysema/COPD with bibasilar atelectasis or scarring and bilateral ap ical scarring, some of which has of the nodular configuration. Repeat CT in 6 months is recommended. Reading Location: [id number]
[2025-02-20] MEDS: APIXABAN 5 MG TABLET PO ×2 (09:06→20:43)
[2025-02-20] MEDS: Furosemide 40 MG/4 ML Vial IV ×2 (09:06→17:36)
[2025-02-20] MEDS: Metoprolol Tartrate 25 MG Tablet PO (09:06)
[2025-02-20] MEDS: 0.9% Saline Lock 10 ML Syringe IV ×2 (09:07→17:36)
--- NOTE | 2025-02-20 09:45 | CASEMGMT ---
RN CM Face to Face with patient for initial transition planning/care coordination assessment. RN CM introduced self and role at [facility]. Patient lying in bed, alert and oriented. Patient willing to participate in assessment and is able to answer all questions appropriately. Care providers, pharmacy, and demographics verified. Strata: 1 PCP: [facility] Specialists: Lizet Nelson, supervisor photocomposition; [facility]erred [facility]acy[facility] Insurance: [employer], [employer] Prescription Benefit: yes Living Will/HPOA: yes, but need redone as her has , SW notified LNOK: daughter Living Arrangements: Patient lives alone in a single story home with 1 step to enter. Patient states she is independent at home. Transportation: self, friends DME/HHC: Patient has grab bars, walker, nebulizer, pulse and home oxygen with portability through [facility] at 3.5 lpm at rest and 6lpm with ambulation. Green sheet on chart if patient would need increase in home oxygen. Patient states she believes that concentrator goes up to 8lpm at home. Patient wishes to discharge home, denies need for home health at this time. Patient states she has no further needs or concerns at this time. CM to follow for discharge planning needs that may arise. Disposition Plan: Patient to discharge home with family support and follow-up plans in place. Will monitor for increase in home oxygen. Lisha WEISS, RN, CM
--- NOTE | 2025-02-20 14:56 | CASEMGMT ---
Social Work SW assisted pt in completing living will and health care POA naming her daughter Lizbet Alcazar. Copy placed in pt chart and original given to pt. DUNCAN Denton
[2025-02-20] MEDS: Metoprolol Tartrate 50 MG Tablet PO (20:43)
[2025-02-21] VITALS (14 sets, daily range): BP systolic 122–134; BP diastolic 72–86; PULSE 79–105; RESP 17–20; TEMP 36.1–36.8; O2SAT 84–96; BMI 44.4
[2025-02-21 05:09] LABS: Hematocrit 40.3 % (37-47); Hemoglobin 12.6 g/dL (12.0-15.0); Mean Corp Hgb Conc 31.3 g/dL (32-36); Mean Corpuscular Hgb 31.3 pg (27.0-32.0); Mean Corpuscular Volume 100.2 fL (81-99); Mean Platelet Vol. 10.6 fl (6.2-12.0); Platelet Count 226 K/mm3 (150-450); RBC Distribution Width CV 14.6 % (11.6-14.6); RBC Distribution Width SD 54.2 fl (35.1-43.9); Red Blood Count 4.02 M/mm3 (4.2-5.4); White Blood Count 8.9 K/mm3 (4.4-11.0)
[2025-02-21 05:42] LABS: Anion Gap 9 (5-15); BUN 22 mg/dL (4-19); BUN/Creat Ratio 40.7 RATIO (10-20); Calcium,Total 8.9 mg/dL (7.6-11.0); Chloride 96 mmol/L (98-108); Creatinine, Serum 0.54 mg/dL (0.70-1.20); EST Glomerular Filtration Rate 101 (>60); Estimated Creatinine Clearance 85.99 ml/min (50-250); Glucose 119 mg/dL (70-99); Magnesium 1.9 mg/dL (1.5-2.2); Phosphorus 3.3 mg/dL (2.7-4.5); Potassium 3.3 mmol/L (3.3-5.1); Sodium Level 144 mmol/L (133-145)
[2025-02-21] MEDS: Budesonide Respules 0.5 MG/2 ML AMPUL.NEB. INHALATION (06:58)
[2025-02-21] MEDS: Ipratropium/Albuterol Sulfate 3 ML AMPUL.NEB INHALATION ×3 (06:58→19:29)
[2025-02-21] MEDS: APIXABAN 5 MG TABLET PO ×2 (09:11→20:54)
[2025-02-21] MEDS: Metoprolol Tartrate 50 MG Tablet PO ×2 (09:11→20:54)
[2025-02-21] MEDS: Furosemide 40 MG/4 ML Vial IV ×2 (09:12→18:10)
[2025-02-21] MEDS: 0.9% Saline Lock 10 ML Syringe IV ×3 (09:12→18:10)
--- NOTE | 2025-02-21 11:44 | PCM.PN.HOSP ---
Reason for Visit Reason for Visit: Shortness of breath/lower extremity swelling Subjective Subjective Patient states she has noted her swelling seems to be improving significantly. Has had good urine output. We did discuss that her oxygen requirements are still too high to consider discharge. Will reevaluate on a daily basis. She did require 10 L with exertion. Baseline is 6 L. Objective Data Objective Data Vital Signs: Vital Signs Temp Pulse Resp BP Pulse Ox O2 Del Method O2 Flow Rate 98.1 F 96 18 126/72 H 92 Nasal Cannula 5 02/21/25 09:00 02/21/25 09:11 02/21/25 09:00 02/21/25 09:00 02/21/25 09:05 02/21/25 09:05 02/21/25 09:05 Oxygen Flow Rate (L/min) 5 Oxygen Delivery Method Nasal Cannula Weight: 117.5 kg Body Mass Index (BMI) 44.4 Intake & Output: Intake and Output for Last 24 Hours 02/19/25 02/20/25 02/21/25 23:59 23:59 23:59 Intake Total 680 / 680 1250 / 1490 680 / 680 Output Total 900 / 900 1650 / 1650 650 / 650 Balance -220 / -220 -400 / -160 30 / Lab / Micro Data 02/21/25 04:42 02/21/25 04:42 Labs: Laboratory Results - last 24 hr 02/21/25 04:42: WBC 8.9, RBC 4.02 L, Hgb 12.6, Hct 40.3, MCV 100.2 H, MCH 31.3, MCHC 31.3 L, RDW Std Deviation 54.2 H, RDW Coeff of Karly 14.6, Plt Count 226, MPV 10.6, Sodium 144, Potassium 3.3, Chloride 96 L, Carbon Dioxide 39.0 H, Anion Gap 9, BUN 22 H, Creatinine 0.54 L, Estim Creat Clear Calc 85.99, Est GFR (MDRD) Non-Af 101, BUN/Creatinine Ratio 40.7 H, Glucose 119 H, Calcium 8.9, Phosphorus 3.3, Magnesium 1.9 Micro: Microbiology 02/19/25 14:05 Blood Culture (Wb) - Anticubital Right Blood Culture - Preliminary No growth in 48 hours. 02/19/25 13:09 Blood Culture (Wb) - No Site/Description Given Blood Culture - Preliminary No growth in 48 hours. 02/19/25 14:35 Urine, Clean Catch Urine Culture - Final Mixed Gram Pos & Gram Neg Org 02/20/25 10:35 Mucosa - Nasopharyngeal Respiratory Panel (PCR) - Final 02/19/25 13:10 Mucosa - Nose SARS-CoV-2, Influenza & RSV (PCR) - Final Radiography Diagnostic Testing: Radiology Impression Echocardiogram 02/19/25 16:38 Interpretation Summary Borderline LV systolic function. Estimated LVEF 45-50%. Moderate global right ventricular systolic dysfunction. There is mild biatrial dilatation. Moderate (2+) eccentric mitral valve insufficiency. Mild tricuspid valve insufficiency. Right ventricular systolic pressure estimated to be 53 mmHg. The study was technically difficult. Ordering Physician: Kym Norton Performed By: Prieto Mcbride RCS Physical Exam Const alert, oriented x3, no apparent distress and well nourished; Negative for average body habitus or healthy appearing Constitutional Narrative: Morbidly obese, white female, sitting up in a chair at the bedside watching television, appears comfortable, nontoxic, currently on 5 L nasal cannula at rest HEENT head/scalp atraumatic and moist oral mucous membranes HEENT Narrative: Mallampati 3-4, no thrush Head and Scalp: normocephalic Resp normal respiratory effort, no retractions, no use of accessory muscles and clear to auscultation bilaterally Resp Narrative: Remains with crackles at bases bilaterally Auscultation: rales; Negative for rhonchi or wheezes Cardio regular rate, S1 normal heart sound, S2 normal heart sound, no murmurs, no rub, no gallops and no clicks; Negative for regular rhythm Cardio Narrative: Crackles at bases bilaterally GI normal to inspection, nondistended, normoactive bowel sounds, soft to palpation and non-tender GI Narrative: Large protuberant abdomen Extremity Extremity Narrative: Remains with trace bilateral lower extremity edema, no edema in upper extremities today, pedal pulses are 2+, radial pulses are 2+, no clubbing or cyanosis, increased wrinkling in skin lower extremities Neuro oriented x3, moves all extremities and no focal motor deficits Speech: speech normal Psych affect normal Psych Narrative: Very pleasant, interacts appropriately Assessment & Plan Assessment/Plan (1) Atrial flutter: (2) Acute on chronic hypoxic respiratory failure: (3) Shortness of breath: PLAN: Plan Acute on chronic hypoxic respiratory failure secondary to new onset acute combined heart failure - Patient on 3 L at baseline at rest and 6 L with exertion - Currently requiring 4 L at rest and required 10 L with exertion -Wean as able -Will need ambulatory pulse ox prior to discharge - CTA was negative for PE however she has pretty severe lung disease - Continue IV diuretics - Has developed some contraction alkalosis so we will go ahead and give 1 dose of Diamox 500 mg and continue Bumex -Down 2 kg thus far and patient states urine output has been good - Echocardiogram showed an EF of 40 to 50% with moderate global dysfunction of the RV and mild biatrial dilation, moderate eccentric mitral valve insufficiency and a right ventricular systolic pressure 53 mmHg - Strict I's and O's - Continue daily weights - Continue fluid restriction - Continue sodium restriction to 3 g daily - Suspect patient has obstructive sleep apnea baseline--> consider AutoPap if patient agreeable - Patient will need outpatient cardiology follow-up and would like to follow-up at [facility]--> she stated she would get a referral from her primary care physician New onset A-fib/flutter - EKG on presentation showed flutter with variable block - Continue metoprolol 50 mg p.o. twice daily as heart rate seems to be pretty well-controlled however she does remain in A-fib - Continue Eliquis - TSH was in normal limits - Continue telemetry Essential hypertension - Hold triamterene/HCTZ - Hold home amlodipine - Continue metoprolol 50 twice daily - ongoing IV diuretics - Blood pressures are fairly well-controlled with current regimen COPD - Patient follows with pulmonary medicine at [facility] - Does not seem to be in acute exacerbation at this time - Is on chronic oxygen at 3 L at rest and 6 L with exertion - Hold home inhalers - Continue nebulizers - Continue home guaifenesin - Recommend ongoing outpatient follow-up Obesity - BMI is 44.5 - Complicates treatment, prognosis, outcomes - Highly suspect patient has obstructive sleep apnea baseline -Discussed with patient she indicated she would request an outpatient polysomnography to be done - Tolerated AutoPap well last night DVT prophylaxis -Continue Eliquis 5 mg p.o. twice daily CODE STATUS - Full code as verified on admission Charges/Coding Visit Charges Inpatient E&M: 03134 Subs Hosp L2
[2025-02-21] MEDS: AcetaZOLAMIDE 500 MG/10 ML Vial IV (13:16)
[2025-02-21] MEDS: Albuterol 2.5 MG/3 ML VIAL.NEB. INHALATION (19:30)
--- NOTE | 2025-02-21 22:04 | CPS ---
PATIENT WORE SLEEP LAB PAP MACHINE 02/[address] ALMANZA. PATIENT ONLY WORE FOR A FEW HOURS SHE HAD TROUBLE GETTING ACCLIMATED TO IT. PATIENT DOES NOT WISH TO WEAR IT AGAIN TONIGHT. PATIENT CURRENTLY DOES NOT WEAR PAP THERAPY AT HOME. PREVIOUS SLEEP STUDY RESULTS INCONCLUSIVE DUE TO NOT ENOUGH SLEEP TIME PER PATIENT.
[2025-02-22] VITALS (10 sets, daily range): BP systolic 102–130; BP diastolic 64–75; PULSE 67–90; RESP 16–18; TEMP 36.1–36.9; O2SAT 90–105; BMI 44.7
[2025-02-22 06:26] LABS: Hematocrit 42.6 % (37-47); Hemoglobin 13.2 g/dL (12.0-15.0); Mean Corpuscular Hgb 31.4 pg (27.0-32.0); Mean Corpuscular Volume 101.2 fL (81-99); Mean Platelet Vol. 11.3 fl (6.2-12.0); Platelet Count 189 K/mm3 (150-450); RBC Distribution Width CV 14.5 % (11.6-14.6); RBC Distribution Width SD 54.4 fl (35.1-43.9); Red Blood Count 4.21 M/mm3 (4.2-5.4); White Blood Count 8.1 K/mm3 (4.4-11.0)
[2025-02-22 06:43] LABS: Anion Gap 11 (5-15); BUN 22 mg/dL (4-19); BUN/Creat Ratio 36.2 RATIO (10-20); Calcium,Total 9.4 mg/dL (7.6-11.0); Carbon Dioxide 36.4 mmol/L (21.0-32.0); Chloride 96 mmol/L (98-108); EST Glomerular Filtration Rate 98 (>60); Estimated Creatinine Clearance 86.29 ml/min (50-250); Glucose 115 mg/dL (70-99); Magnesium 2.2 mg/dL (1.5-2.2); Phosphorus 4.9 mg/dL (2.7-4.5); Potassium 3.5 mmol/L (3.3-5.1); Sodium Level 144 mmol/L (133-145)
[2025-02-22] MEDS: Budesonide Respules 0.5 MG/2 ML AMPUL.NEB. INHALATION (06:43)
[2025-02-22] MEDS: Ipratropium/Albuterol Sulfate 3 ML AMPUL.NEB INHALATION ×3 (06:43→17:03)
[2025-02-22] MEDS: Metoprolol Tartrate 50 MG Tablet PO ×2 (09:27→21:56)
[2025-02-22] MEDS: 0.9% Saline Lock 10 ML Syringe IV ×3 (09:27→21:55)
[2025-02-22] MEDS: APIXABAN 5 MG TABLET PO ×2 (09:27→21:56)
[2025-02-22] MEDS: Furosemide 40 MG/4 ML Vial IV ×2 (09:28→18:15)
--- NOTE | 2025-02-22 14:11 | PN_ITS ---
Subjective Subjective Patient seen and examined. She said she felt much better today and that her breathing had improved. She denies any cough, chest pain, palpitations, dizziness, nausea or vomiting or any other symptoms. Review of systems otherwise negative. She required up to 10L with ambulation yesterday. Walking pulse ox today showed that she required 8L. She usually wears 6L at home. Objective Data Objective Data Vital Signs: Vital Signs Temp Pulse Resp BP Pulse Ox O2 Del Method O2 Flow Rate 98.2 F 78 18 120/75 105 Nasal Cannula 3.5 02/22/25 09:00 02/22/25 12:06 02/22/25 12:06 02/22/25 09:27 02/22/25 09:00 02/22/25 09:00 02/22/25 09:00 Oxygen Flow Rate (L/min) 3.5 Oxygen Delivery Method Nasal Cannula Weight: 260 lb 9.382 oz Body Mass Index (BMI) 44.7 Intake & Output: Intake and Output for Last 24 Hours 02/20/25 02/21/25 02/22/25 23:59 23:59 23:59 Intake Total 1250 / 1490 1640 / 1640 240 / 240 Output Total 1650 / 1650 2050 / 2050 700 / 700 Balance -400 / -160 -410 / -410 -460 / -460 Lab / Micro Data 02/22/25 05:39 02/22/25 05:39 Labs: Laboratory Results - last 24 hr 02/22/25 05:39: WBC 8.1, RBC 4.21, Hgb 13.2, Hct 42.6, MCV 101.2 H, MCH 31.4, M CHC 31.0 L, RDW Std Deviation 54.4 H, RDW Coeff of Karly 14.5, Plt Count 189, MPV 11.3, Sodium 144, Potassium 3.5, Chloride 96 L, Carbon Dioxide 36.4 H, Anion Gap 11, BUN 22 H, Creatinine 0.60 L, Estim Creat Clear Calc 86.29, Est GFR (MDRD) Non-Af 98, BUN/Creatinine Ratio 36.2 H, Glucose 115 H, Calcium 9.4, Phosphorus 4.9 H, Magnesium 2.2 Micro: Microbiology 02/19/25 14:05 Blood Culture (Wb) - Anticubital Right Blood Culture - Preliminary No growth in 48 hours. 02/19/25 13:09 Blood Culture (Wb) - No Site/Description Given Blood Culture - Preliminary No growth in 48 hours. 02/19/25 14:35 Urine, Clean Catch Urine Culture - Final Mixed Gram Pos & Gram Neg Org 02/20/25 10:35 Mucosa - Nasopharyngeal Respiratory Panel (PCR) - Final 02/19/25 13:10 Mucosa - Nose SARS-CoV-2, Influenza & RSV (PCR) - Final Physical Exam Const alert, oriented x3 and no apparent distress Constitutional Narrative: class III obesity General Appearance: cooperative HEENT normocephalic, head/scalp atraumatic, moist oral mucous membranes, oropharynx normal and gingiva normal Eyes PERRL and EOMs intact bilaterally Neck no lymphadenopathy, supple and no JVD Lymph Lymphatic: no lymphadenopathy noted, no lymphedema noted and lymphedema Resp Resp Narrative: mildly diminished breath sounds bibasally, no wheezes or crackles. On 3.5L of oxygen. Cardio regular rate, regular rhythm, S1 normal heart sound, S2 normal heart sound and no murmurs GI normal to inspection, nondistended, normoactive bowel sounds, soft to palpation, non-tender and non-distended Extremity normal capillary refill, no clubbing, cyanosis or edema and no calf tenderness General Extremity: no tenderness to palpation of joints or extremities Skin General Skin Exam: no breakdown Neuro CN's II-XII intact bilaterally, no focal motor deficits and no sensory deficits noted Motor Exam: strength 5/5 throughout and general weakness Psych thought process normal, cooperative and affect normal Appearance: appropriate Assessment & Plan Assessment/Plan (1) Atrial flutter: (2) Dyspnea on exertion: (3) Acute on chronic hypoxic respiratory failure: PLAN: Plan #Acute on chronic hypoxic respiratory failure due to acute combined heart failure * Usual was 3.5 L of oxygen at rest and 6 L with exertion. Currently requiring 4 L at rest and 10 L with exertion. She required 8 L today as her oxygen requirements had improved a bit. * CTA was negative for PE but however showed severe diffuse lung disease. * 2D echo showed EF of 40 to 50% with moderate global dysfunction of the right ventricle and mild biatrial dilation with moderate eccentric mitral valve insufficiency and a right ventricular systolic pressure of 53 mmHg. * Breathing treatments bronchodilators. Monitor fluid intake and output. * Titrate oxygen to maintain saturation above 90%. * There was concern that patient may also have sleep apnea at baseline due to her weight. Will need follow-up with pulmonology on outpatient basis. #Atrial fibrillation * EKG on admission showed atrial flutter with variable block. Currently on metoprolol 50 mg twice daily. On Eliquis. TSH was normal. * #Hypertension: Amlodipine and triamterene hydrochlorothiazide on hold. On metoprolol. Currently on IV Lasix also. #COPD: * Breathing treatments bronchodilators. Not an active exacerbation. * Wears 3 L of oxygen chronically at rest and 6 L with ambulation. * #Class III obesity: Complicates acute care, expected current prognosis. #DVT prophylaxis: Already on Eliquis. Disposition: Anticipate will be able to discharge patient home over the next 24 to 48 hours. Her walking pulse ox today showed that she required 8 L of oxygen. She is usually on 6L of oxygen at home with ambulation. Charges/Coding Visit Charges Inpatient E&M: 04555 Subs Hosp L2
--- NOTE | 2025-02-22 14:31 | CHAPLAIN ---
Type of Pastoral Visit _x__ Initial Visit ___ Follow-up Visit ___ On-call Visit ___ General Patient Visit ___ Spiritual Assessment ___ Family Conference ___ Bereavement ___ Rapid Response ___ Code Blue ___ Other (describe below) Pastoral Care Referral From _x__ Patient ___ Family ___ Nurse ___ Physician ___ [employer] Tank Worker ___ Motor Home Electrical Foreman ___ Other (describe below) Sacrament/Intervention _x__ Active listening ___ Anointing ___ Church ___ Bereavement ___ Communion ___ Nidia exploration ___ ___ Life review _x__ Prayer ___ Reconciliation ___ Sacrament of Sick _x__ Supportive presence ___ Wedding ___ Other (describe below) Pastoral Comments patient had a friend visiting that was ready to leave and a daughter that stayed in the room; pt gives a brief summary of her situation and the ongoing copd with some new issues too; pt acknowledges need for some changes in life; pt also reveals that her in late August and she is navigating that change too; talked about how she is handling situation and changes; pt says that she has great support from family and friends; pt speaks of needing to rely on others to help her with household maintenance etc.; pt has not been involved in a nidia community for a long time but welcomed the prayers and said He is the one who will get me through;
[2025-02-23] VITALS (7 sets, daily range): BP systolic 110–126; BP diastolic 81–83; PULSE 65–104; RESP 18–20; TEMP 36.7–36.9; O2SAT 86–98; BMI 44.6
[2025-02-23 06:46] LABS: Absolute Lymphocyte Count 0.85 X10^3/uL (0.83-4.51); Absolute Neutrophil Count 5.9 X10^3/uL (2.0-7.7); Basophil# 0.05 X10^3/uL; Basophil% 0.7 % (0-1); Eosinophil# 0.13 X10^3/uL; Eosinophils% 1.7 % (0-5); Hematocrit 45.7 % (37-47); Hemoglobin 14.1 g/dL (12.0-15.0); Lymphocyte # 0.85 X10^3/ul (0.83-4.51); Lymphocyte % 11.2 % (19-41); Mean Corp Hgb Conc 30.9 g/dL (32-36); Mean Corpuscular Hgb 30.9 pg (27.0-32.0); Mean Corpuscular Volume 100.2 fL (81-99); Mean Platelet Vol. 10.7 fl (6.2-12.0); Monocyte% 7.9 % (0-10); NRBC Flagged by Analyzer 0 % (0-5); Neutrophil % 78.1 % (47-70); Platelet Count 217 K/mm3 (150-450); RBC Distribution Width CV 14.3 % (11.6-14.6); RBC Distribution Width SD 53.5 fl (35.1-43.9); Red Blood Count 4.56 M/mm3 (4.2-5.4); White Blood Count 7.6 K/mm3 (4.4-11.0)
[2025-02-23] MEDS: Budesonide Respules 0.5 MG/2 ML AMPUL.NEB. INHALATION (06:58)
[2025-02-23] MEDS: Ipratropium/Albuterol Sulfate 3 ML AMPUL.NEB INHALATION ×2 (06:58→13:22)
[2025-02-23 07:02] LABS: Anion Gap 9 (5-15); BUN 20 mg/dL (4-19); BUN/Creat Ratio 31.6 RATIO (10-20); Calcium,Total 9.4 mg/dL (7.6-11.0); Carbon Dioxide 40.2 mmol/L (21.0-32.0); Chloride 96 mmol/L (98-108); Creatinine, Serum 0.62 mg/dL (0.70-1.20); EST Glomerular Filtration Rate 97 (>60); Estimated Creatinine Clearance 86.12 ml/min (50-250); Glucose 114 mg/dL (70-99); Potassium 3.3 mmol/L (3.3-5.1); Sodium Level 145 mmol/L (133-145)
[2025-02-23] MEDS: APIXABAN 5 MG TABLET PO (09:16)
[2025-02-23] MEDS: 0.9% Saline Lock 10 ML Syringe IV (09:17)
[2025-02-23] MEDS: Furosemide 40 MG/4 ML Vial IV (09:17)
[2025-02-23] MEDS: Metoprolol Tartrate 50 MG Tablet PO (09:17)
--- NOTE | 2025-02-23 13:22 | DS.PCM_ITS ---
Providers Date of Admission: 02/19/25 Date of Discharge: 02/23/25 Primary Care Physician: Dr. Phuc Martines DO Reason For Visit: HYPOXIA Diagnosis Discharge Diagnosis (1) Atrial flutter: Status: Acute Code(s): I48.92 - Unspecified atrial flutter (2) Dyspnea on exertion: Status: Acute Code(s): R06.09 - Other forms of dyspnea (3) Acute on chronic hypoxic respiratory failure: Status: Chronic Code(s): J96.21 - Acute and chronic respiratory failure with hypoxia Plan #Acute on chronic hypoxic respiratory failure due to acute combined heart failure * Usual was 3.5 L of oxygen at rest and 6 L with exertion. Currently requiring 4 L at rest and 10 L with exertion. She required 8 L today as her oxygen requirements had improved a bit. * CTA was negative for PE but however showed severe diffuse lung disease. * 2D echo showed EF of 40 to 50% with moderate global dysfunction of the right ventricle and mild biatrial dilation with moderate eccentric mitral valve insufficiency and a right ventricular systolic pressure of 53 mmHg. * Breathing treatments bronchodilators. Monitor fluid intake and output. * Titrate oxygen to maintain saturation above 90%. * There was concern that patient may also have sleep apnea at baseline due to her weight. Will need follow-up with pulmonology on outpatient basis. #Atrial fibrillation * EKG on admission showed atrial flutter with variable block. Currently on metoprolol 50 mg twice daily. On Eliquis. TSH was normal. * #Hypertension: Amlodipine and triamterene hydrochlorothiazide on hold. On metoprolol. Currently on IV Lasix also. #COPD: * Breathing treatments bronchodilators. Not an active exacerbation. * Wears 3 L of oxygen chronically at rest and 6 L with ambulation. * #Class III obesity: Complicates acute care, expected current prognosis. #DVT prophylaxis: Already on Eliquis. Disposition: * Anticipate will be able to discharge patient home over the next 24 to 48 hours. Her walking pulse ox today showed that she required 8 L of oxygen. She is usually on 6L of oxygen at home with ambulation. Medications at Discharge Home Medications Oxygen, Home [Home Oxygen] 2 - 4 lpm QHS 11/13/17 ascorbic acid (vitamin C) 500 mg capsule 500 mg PO DAILY 11/13/17 albuterol sulfate 90 mcg/actuation breath activated powder inhaler 2 inh inhalation Q6H PRN shortness of breath 02/19/25 amlodipine 10 mg tablet 10 mg PO DAILY 02/19/25 fluticasone fur. 200 mcg-umeclid 62.5 mcg-vilant 25 mcg inhalat.powder (Trelegy Ellipta) 1 ea inhalation DAILY 02/19/25 guaifenesin 1,200 mg tablet, extended release 12 hr (Mucus Relief ER) 1,200 mg PO BID PRN cough 02/19/25 ipratropium 0.5 mg-albuterol 3 mg (2.5 mg base)/3 mL nebulization soln 3 ml inhalation Q6H PRN shortness of breath 02/19/25 multivitamin (Daily Multi-Vitamin tablet) 1 tab PO DAILY 02/19/25 sodium chloride 0.65 % nasal spray aerosol ([place] Saline) 1 spray intranasal BID PRN dry nasal passages 02/19/25 triamcinolone acetonide 0.5 % topical cream 1 applic topical BID PRN itching 02/19/25 apixaban 5 mg tablet (Eliquis) 5 mg PO BID #60 tabs 02/23/25 furosemide 40 mg tablet 40 mg PO BID #60 tabs 02/23/25 metoprolol tartrate 50 mg tablet 50 mg PO BID #60 tabs 02/23/25 potassium chloride 20 mEq tablet,extended release(part/cryst) (Klor-Con M) 20 meq PO BID #60 tabs 02/23/25 Hospital Course Operations None Procedures 2-D Echocardiogram Summary of Care Provided Minutes Spent on Discharge: 45 Hospital Course: Patient is a 69-year-old female with a past medical history as outlined including history of COPD on 3 L of oxygen as well as hypertension was admitted through the ED on 02/19/2025 with complaint of worsening shortness of breath with exertion over the past several days prior to admission with associated bilateral lower extremity swelling. On admission Saturation dropped to 85% on 5 L of oxygen with respiratory going up to 28. Her heart rate was 116. Chest x-ray showed pulmonary venous congestion. EKG also showed atrial fibrillation versus atrial flutter and she was given IV Lopressor. She was admitted to be managed for new onset of heart failure. She was admitted and managed for new onset atrial fibrillation versus atrial flutter as well as COPD exacerbation acute exacerbation of heart failure. She was started on diuresis with IV Lasix and also placed on Eliquis and metoprolol. She had 2D echo which showed EF of 45 to 50% and unable to assess diastolic dysfunction due to arrhythmia and she had moderate global right ventricular systolic dysfunction. Her RVSP was 53 mmHg. CTA of the chest done was negative for any evidence of PE. CT however did show severe diffuse lung disease. There was concern also that patient may have sleep apnea at baseline due to her size. Patient shortness of breath improved and she was weaned down to her baseline 3 L of oxygen at rest and 6 L with ambulation. She was therefore discharged home on 02/23/2025. She was discharged on p.o. metoprolol 50 mg twice daily as well as p.o. Lasix 40 mg twice daily with potassium supplementation. She was also discharged on p.o. Eliquis 5 mg twice daily for stroke prophylaxis. Her triamterene hydrochlorothiazide was discontinued as she was being started on Lasix and metoprolol. She was referred to cardiology to follow-up for her A-fib and heart failure. She is she is also to follow-up with her PCP within 1 to 2 weeks. Of note, TSH was WNL at 0.626. Patient seen and examined prior to discharge. She had no active complaints and felt better. Review of systems otherwise negative. Labs and vitals reviewed. Home medication reviewed and reconciled. Physical Exam Const alert, oriented x3, no apparent distress and well nourished; Negative for average body habitus or healthy appearing Constitutional Narrative: class III obesity General Appearance: cooperative and comfortable Orientation / Consciousness: awake Exam Limitations: no limitations HEENT normocephalic, head/scalp atraumatic, hearing grossly normal bilaterally, moist oral mucous membranes, oropharynx normal and gingiva normal Mouth: oral and palatal mucosa normal Eyes PERRL, EOMs intact bilaterally and conjunctivae normal Neck no lymphadenopathy, supple and no JVD Lymph Lymphatic: no lymphadenopathy noted, no lymphedema noted and lymphedema Resp normal respiratory effort, no retractions, no use of accessory muscles and clear to auscultation bilaterally Resp Narrative: mildly diminished breath sounds bibasally, no wheezes or crackles. On 3.5L of oxygen. Auscultation: rales; Negative for rhonchi or wheezes Cardio regular rate, regular rhythm, S1 normal heart sound, S2 normal heart sound, no murmurs, no rub, no gallops and no clicks Cardio Narrative: Crackles at bases bilaterally GI normal to inspection, nondistended, normoactive bowel sounds, soft to palpation, non-tender and non-distended GI Narrative: obese abdomen Extremity normal capillary refill, no clubbing, cyanosis or edema and no calf tenderness General Extremity: no tenderness to palpation of joints or extremities Skin General Skin Exam: no breakdown Neuro oriented x3, CN's II-XII intact bilaterally, moves all extremities, no focal motor deficits and no sensory deficits noted Speech: speech normal Motor Exam: strength 5/5 throughout and general weakness Psych thought process normal, cooperative and affect normal Appearance: appropriate Weight / BMI Weight Weight: 259 lb 11.272 oz Body Mass Index (BMI) 44.6 ABG / Lab / Microbiology Data 02/23/25 05:51 02/23/25 05:51 Laboratory: Laboratory Results - last 24 hr 02/23/25 05:51: WBC 7.6, RBC 4.56, Hgb 14.1, Hct 45.7, MCV 100.2 H, MCH 30.9, M CHC 30.9 L, RDW Std Deviation 53.5 H, RDW Coeff of Karly 14.3, Plt Count 217, MPV 10.7, Immature Gran % (Auto) 0.400, Neut % (Auto) 78.1 H, Lymph % (Auto) 11.2 L, Barnes % (Auto) 7.9, Eos % (Auto) 1.7, Baso % (Auto) 0.7, Absolute Neuts (auto) 5.9, Absolute Lymphs (auto) 0.85, Nucleated RBC % 0, Sodium 145, Potassium 3.3, Chloride 96 L, Carbon Dioxide 40.2 H, Anion Gap 9, BUN 20 H, Creatinine 0.62 L, Estim Creat Clear Calc 86.12, Est GFR (MDRD) Non-Af 97, BUN/Creatinine Ratio 31.6 H, Glucose 114 H, Calcium 9.4 Microbiology: Microbiology 02/19/25 14:05 Blood Culture (Wb) - Anticubital Right Blood Culture - Preliminary No growth in 48 hours. 02/19/25 13:09 Blood Culture (Wb) - No Site/Description Given Blood Culture - Preliminary No growth in 48 hours. 02/19/25 14:35 Urine, Clean Catch Urine Culture - Final Mixed Gram Pos & Gram Neg Org 02/20/25 10:35 Mucosa - Nasopharyngeal Respiratory Panel (PCR) - Final 02/19/25 13:10 Mucosa - Nose SARS-CoV-2, Influenza & RSV (PCR) - Final D/C Instructions Discharge Diet: Low fat / Low cholesterol Discharge Activity: Return to Normal Activity Weight Bearing Status: Weight bearing as tolerated Call your doctor if you observe: Fever of 101 or Higher, Shortness of breath, Dizziness, Swelling in the ankles and Chest pain DC O2, CPAP, BIPAP Needs Home O2 Discharge instructions: Yes Type of respiratory needs?: Oxygen Oxygen frequency: At rest (3.5) and With Ambulation Oxygen liters per minute during Ambulation: 6 DC home with Oxygen: Yes Home O2 MD Review: I have reviewed the oxygen testing, and the patient qualifies for home oxygen equipment and portability. The patient is mobile in the home and the community. Meaningful Use Info Meaningful Use Meaningful Use Diagnoses (Choose all that apply): CHF CHF NINA/ARB ordered at discharge?: No Reason NINA/ARB not ordered?: Not indicated Documented LVEF (%): 45 Ischemic Stroke Statin Dosing Therapy Reference: STATIN DOSE THERAPY REFERENCE: * Patients > 75 years receive moderate or high dose statin therapy. * Patients 75 years or YOUNGER should receive HIGH intensity statin dose unless contraindicated. You will be required to document reason for non-treatment if statin daily dose does not meet guidelines. HIGH DOSE STATIN THERAPY DAILY Atorvastatin > than or = to 40 mg Rosuvastatin > than or = to 20 mg Amlodipine + Atorvastatin > than or = to 2.5/40 mg Ezetimibe + Simvastatin 10/80 mg Simvastatin 80mg Discharge Plan Admission Admit Date/Time: 02/19/25 15:53 Primary Reason for Your Visit: acute exacerbation of heart failure Attending Provider: Yee Jones Primary Care Provider: Phuc Martines Consulting Providers: Kym Norton; Claudia Valerio Instructions Patient Instructions: Coping with Heart Failure Discharge Orders/Prescriptions Prescriptions: New metoprolol tartrate 50 mg Tablet 50 mg PO BID Qty: 60 2RF furosemide 40 mg tablet 40 mg PO BID Qty: 60 2RF potassium chloride [Klor-Con M20] 20 mEq tablet,ER particles/crystals 20 meq PO BID Qty: 60 2RF Eliquis 5 mg Tablet 5 mg PO BID Qty: 60 2RF Continued ascorbic acid (vitamin C) 500 MG capsule 500 mg PO DAILY Oxygen, Home [Home Oxygen] 2 - 4 lpm NASAL QHS albuterol sulfate 90 mcg/actuation aerosol powdr breath activated 2 inh inhalation Q6H PRN (Reason: shortness of breath) amlodipine 10 mg tablet 10 mg PO DAILY Trelegy Ellipta 200-62.5-25 mcg blister with device 1 ea inhalation DAILY triamcinolone acetonide 0.5 % cream 1 applic topical BID PRN (Reason: itching) ipratropium-albuterol 0.5 mg-3 mg(2.5 mg base)/3 mL solution for nebulization 3 ml inhalation Q6H PRN (Reason: shortness of breath) multivitamin [Daily Multi-Vitamin] Tablet 1 tab PO DAILY [place] Saline 0.65 % aerosol,spray 1 spray intranasal BID PRN (Reason: dry nasal passages) guaifenesin [Mucus Relief ER] 1,200 MG tablet 1,200 mg PO BID PRN (Reason: cough) Discontinued triamterene-hydrochlorothiazid 37.5-25 mg capsule 1 cap PO DAILY Patient Comments: PT TAKES IN AFTERNOON Referrals / Follow Up: Piyush Peterson MD [Med Staff - Active Staff] - Within 2 Weeks (see to establish care for afib and heart failure) Phuc Martines DO [Primary Care Provider] - Within 1 Week Yonathan Nelson DO [Med Staff - Active Staff] - Within 2 Weeks (see to establish care for lung disease as seen per CT) Disposition Disposition (needs filled in before D/C Order can be placed): Home, Self Care Charges/Coding Visit Charges Inpatient E&M: 60822 Disch Hosp >30min
--- NOTE | 2025-02-23 14:10 | PHA.DC_ITS ---
Pharmacy [facility] has performed discharge medication reconciliation and counseling for this patient. 1. Apixaban 5mg PO BID 2. Furosemide 40mg PO BID 3. Metoprolol tartrate 50mg PO BID 4. Potassium chloride 20mEq PO BID 5. Stop triamterene/hydrochlorothiazide The patient's discharge medication list was reviewed for discrepancies and discrepancies were resolved. The patient was counseled on the following discharge medications and changes in medications for homegoing were reviewed. The Reason for Use, instructions for use, and potential side effects were reviewed for all new medications. The patient's questions regarding all of their medications were answered. The patient was able to verbally demonstrate an understanding of their discharge medications. Patient counseled by pharmacy technician per diem, Pete. Medications at Discharge Home Medications Oxygen, Home [Home Oxygen] 2 - 4 lpm QHS 11/13/17 ascorbic acid (vitamin C) 500 mg capsule 500 mg PO DAILY 11/13/17 albuterol sulfate 90 mcg/actuation breath activated powder inhaler 2 inh inhalation Q6H PRN shortness of breath 02/19/25 amlodipine 10 mg tablet 10 mg PO DAILY 02/19/25 fluticasone fur. 200 mcg-umeclid 62.5 mcg-vilant 25 mcg inhalat.powder (Trelegy Ellipta) 1 ea inhalation DAILY 02/19/25 guaifenesin 1,200 mg tablet, extended release 12 hr (Mucus Relief ER) 1,200 mg PO BID PRN cough 02/19/25 ipratropium 0.5 mg-albuterol 3 mg (2.5 mg base)/3 mL nebulization soln 3 ml inhalation Q6H PRN shortness of breath 02/19/25 multivitamin (Daily Multi-Vitamin tablet) 1 tab PO DAILY 02/19/25 sodium chloride 0.65 % nasal spray aerosol ([place] Saline) 1 spray intranasal BID PRN dry nasal passages 02/19/25 triamcinolone acetonide 0.5 % topical cream 1 applic topical BID PRN itching 02/19/25 apixaban 5 mg tablet (Eliquis) 5 mg PO BID #60 tabs 02/23/25 furosemide 40 mg tablet 40 mg PO BID #60 tabs 02/23/25 metoprolol tartrate 50 mg tablet 50 mg PO BID #60 tabs 02/23/25 potassium chloride 20 mEq tablet,extended release(part/cryst) (Klor-Con M) 20 meq PO BID #60 tabs 02/23/25
--- NOTE | 2025-02-23 14:40 | CASEMGMT ---
Patient has order for discharge. Patient is discharging on her baseline oxygen. Patient is going home on Shay, HERRERA ESPINOSA called [employer], copay is $116.06. HERRERA CM in to discuss needs at discharge. HERRERA ESPINOSA updated patient regarding Eliquis copay and provide 30 day free trial card to patient. Patient denies needs or help at discharge. Patient had no further questions or concerns.
== END 2025-02-23 15:51 | disposition home or self-care (01) | DRG 291 ==
LOC: ED 15:05 → PCU 16:05
PROVIDERS: Internal Medicine; Admitting Provider Internal Medicine; Emergency Provider Emergency Medicine; PCP Student in an Organized Health Care Education/Training Program; Visit Provider Student in an Organized Health Care Education/Training Program
DX: I11.0 Hypertensive heart disease with heart failure (principal); J96.21 Acute and chronic respiratory failure with hypoxia; I50.41 Acute combined systolic (congestive) and diastolic (congestive) heart failure; Z68.42 Body mass index [BMI] 45.0-49.9, adult; I48.92 Unspecified atrial flutter; Z79.01 Long term (current) use of anticoagulants; Z99.81 Dependence on supplemental oxygen; J44.9 Chronic obstructive pulmonary disease, unspecified; I34.0 Nonrheumatic mitral (valve) insufficiency; G47.33 Obstructive sleep apnea (adult) (pediatric); I48.91 Unspecified atrial fibrillation; Z87.891 Personal history of nicotine dependence; E66.813 Obesity, class 3; Z79.899 Other long term (current) drug therapy
CPT/HCPCS: 36415; 71046; 71275; 80048; 80053; 80061; 81001; 83605; 83735; 83880; 84100; 84443; 84484; 85025; 85027; 85610; 85730; 87040; 87086; 87088; 87631; 87633; 93005; 93306; 94640; 94660; 94668; 94762; 97802; 99252; 99285; Q9957; Q9967; A4216; C8929; G0463; J1940

== ENCOUNTER 2025-04-23 16:16 | Inpatient (IN) | payer MEDICARE, BC, SELFPAY ==
[2025-04-23] VITALS (18 sets, daily range): BP systolic 90–193; BP diastolic 73–154; PULSE 89–129; RESP 16–32; TEMP 36.8–37.4; O2SAT 90–100; BMI 43.7; BMI 43.8
--- NOTE | 2025-04-23 16:56 | EX.ED.DYSGE1 ---
HPI <LEAH Cooley - Last Filed: 04/23/25 21:52> History of Present Illness Chief Complaint: Palpitations Narrative Narrative: Patient presenting today after being seen in her PCPs office due to dyspnea. She has a history of A-fib/flutter on Eliquis, COPD on 3 to 6 L at baseline, and alcohol use. She reports that she has chronic dyspnea at baseline that has been progressively getting worse. She denies any recent illness or cough. She denies any history of blood clots and is compliant with her Eliquis. She had a fever of 102 ?F on Saturday. She was also experiencing some nasal congestion and went to urgent care, she was also concerned she could have had a UTI and was started on Macrobid. She did have a urine culture that came back negative. She saw her PCP today in the office and was tachycardic with a heart rate around 129 bpm, she was then encouraged to come in for evaluation. She denies chest pain, abdominal pain, nausea, and vomiting. PFS <LEAH Cooley - Last Filed: 04/23/25 21:52> [facility] Medical History Pulmonary nodule Atrial flutter Shortness of breath ROXY (obstructive sleep apnea) Leiomyoma of uterus Internal hemorrhoids with complication Hypertension Diverticulosis of colon Chronic hypoxemic respiratory failure Alcohol abuse Former smoker On home oxygen therapy Irregular heart beat Atrial fibrillation COPD (chronic obstructive pulmonary disease) Home Medications ?Medication ?Instructions ?Recorded ?Last Taken ?Type Oxygen, Home [Home Oxygen] 2 - 4 lpm QHS 11/13/17 02/18/25 History albuterol sulfate 90 mcg/actuation 2 inh inhalation Q6H PRN shortness 02/19/25 Unknown History breath activated powder inhaler of breath fluticasone fur. 200 mcg-umeclid 1 ea inhalation DAILY 02/19/25 02/19/25 History 62.5 mcg-vilant 25 mcg inhalat.powder (Trelegy Ellipta) guaifenesin 1,200 mg tablet, 1,200 mg PO BID PRN cough 02/19/25 Unknown History extended release 12 hr (Mucus Relief ER) ipratropium 0.5 mg-albuterol 3 mg 3 ml inhalation Q6H PRN shortness 02/19/25 02/19/25 History (2.5 mg base)/3 mL nebulization of breath soln multivitamin (Daily Multi-Vitamin 1 tab PO DAILY 02/19/25 02/18/25 History tablet) sodium chloride 0.65 % nasal spray 1 spray intranasal BID PRN dry 02/19/25 Unknown History aerosol (Ipava Saline) nasal passages triamcinolone acetonide 0.5 % 1 applic topical BID PRN itching 02/19/25 Unknown History topical cream apixaban 5 mg tablet (Eliquis) 5 mg PO BID #60 tabs 02/23/25 Unknown Rx furosemide 40 mg tablet 40 mg PO BID #60 tabs 02/23/25 Unknown Rx metoprolol tartrate 50 mg tablet 50 mg PO BID #60 tabs 02/23/25 Unknown Rx potassium chloride 20 mEq 20 meq PO BID #60 tabs 02/23/25 Unknown Rx tablet,extended release(part/cryst) (Klor-Con M) ascorbic acid (vitamin C) 500 mg 500 mg PO DAILY PRN 03/30/25 Unknown History capsule cinnamon bark 500 mg capsule 500 mg PO QDAY 03/30/25 Unknown History (Cinnamon) mecobalamin (vitamin B12) 1,000 1,000 mcg PO QDAY 03/30/25 Unknown History mcg chewable tablet Allergy/AdvReac Type Severity Reaction Status Date / Time ibuprofen (From Advil) Allergy Mild Hives Verified 04/23/25 16:17 Family History Father Cancer Mother COPD (chronic obstructive pulmonary disease) Alcoholism Grandmother Hypertension Thyroid disorder Surgical History History of surgery History of colonoscopy History of lumpectomy of right breast Hx of inguinal herniorrhaphy Social History Smoking Status: Former smoker alcohol intake: current substance use type: does not use caffeine: Yes ROS <LEAH Cooley - Last Filed: 04/23/25 21:52> ROS ED Constitutional Constitutional ED: Reports fever(s); Denies chills Cardiovascular Cardiovascular: Denies chest pain Respiratory/Chest Respiratory/Chest: Reports dyspnea on exertion; Denies cough Gastrointestinal Gastrointestinal: Denies abdominal pain, nausea or vomiting Musculoskeletal Musculoskeletal: Denies arthralgias or myalgias Integumentary Denies rash Neurologic Neurologic: Denies weakness EXAM <LEAH Cooley - Last Filed: 04/23/25 21:52> Physical Exam Const Vital Signs: 04/23/25 16:18 04/23/25 16:50 04/23/25 16:50 Temperature 99.3 F H Temperature Source Oral Pulse Rate 129 H 125 H Respiratory Rate 20 H 16 Respiratory Effort Blood Pressure 133/96 H Blood Pressure Mean 108 Pulse Ox 90 93 Oxygen Delivery Method Nasal Cannula Nasal Cannula Nasal Cannula Oxygen Flow Rate (L/min) 3.5 3.5 04/23/25 16:50 04/23/25 17:21 04/23/25 18:00 Temperature Temperature Source Pulse Rate 104 H 89 Respiratory Rate 24 H 22 H Respiratory Effort Short of Breath Blood Pressure 133/76 H 163/80 H Blood Pressure Mean 95 107 Pulse Ox 94 95 Oxygen Delivery Method Nasal Cannula Nasal Cannula Oxygen Flow Rate (L/min) 4 04/23/25 19:14 04/23/25 20:05 04/23/25 20:15 Temperature Temperature Source Pulse Rate 94 104 H 96 Respiratory Rate 16 22 H 29 H Respiratory Effort Blood Pressure 133/76 H 185/116 H Blood Pressure Mean 95 133 Pulse Ox 93 91 100 Oxygen Delivery Method Oxygen Flow Rate (L/min) 04/23/25 20:30 04/23/25 20:45 04/23/25 21:00 Temperature Temperature Source Pulse Rate 114 H 93 126 H Respiratory Rate 25 H 32 H 24 H Respiratory Effort Blood Pressure 174/154 H 193/118 H 156/92 H Blood Pressure Mean 162 141 113 Pulse Ox 94 92 94 Oxygen Delivery Method Nasal Cannula Oxygen Flow Rate (L/min) 3.5 Positive well nourished, well developed and no apparent distress General Appearance ED: well developed HEENT Reports normocephalic and head/scalp atraumatic Mouth ED: Yes moist mucous membranes normal Eyes PERRL and EOMs intact bilaterally Neck full ROM and supple Chest Wall inspection of chest normal Resp normal respiratory effort and clear to auscultation bilaterally Cardio regular rate and regular rhythm GI soft to palpation, non-tender, non-distended and no masses Back/Spine normal ROM and normal to inspection Extremity normal to inspection and full ROM General Extremety ED: Negative for edema General Extremity: Negative for edema Neuro oriented x3, CN's II-XII intact bilaterally, moves all extremities, no focal motor deficits and no sensory deficits noted Sensorium / Orientation: awake and alert Psych mental status grossly normal and thought process normal Skin no rashes or lesions noted and no wounds <Dr. Clay Hager MD - Last Filed: 04/23/25 20:27> Physical Exam Const Vital Signs: 04/23/25 16:18 04/23/25 16:50 04/23/25 16:50 Temperature 99.3 F H Temperature Source Oral Pulse Rate 129 H 125 H Respiratory Rate 20 H 16 Respiratory Effort Blood Pressure 133/96 H Blood Pressure Mean 108 Pulse Ox 90 93 Oxygen Delivery Method Nasal Cannula Nasal Cannula Nasal Cannula Oxygen Flow Rate (L/min) 3.5 3.5 04/23/25 16:50 04/23/25 17:21 04/23/25 18:00 Temperature Temperature Source Pulse Rate 104 H 89 Respiratory Rate 24 H 22 H Respiratory Effort Short of Breath Blood Pressure 133/76 H 163/80 H Blood Pressure Mean 95 107 Pulse Ox 94 95 Oxygen Delivery Method Nasal Cannula Nasal Cannula Oxygen Flow Rate (L/min) 4 04/23/25 19:14 04/23/25 20:05 04/23/25 20:15 Temperature Temperature Source Pulse Rate 94 104 H 96 Respiratory Rate 16 22 H 29 H Respiratory Effort Blood Pressure 133/76 H 185/116 H Blood Pressure Mean 95 133 Pulse Ox 93 91 100 Oxygen Delivery Method Oxygen Flow Rate (L/min) 04/23/25 20:30 04/23/25 20:45 04/23/25 21:00 Temperature Temperature Source Pulse Rate 114 H 93 126 H Respiratory Rate 25 H 32 H 24 H Respiratory Effort Blood Pressure 174/154 H 193/118 H 156/92 H Blood Pressure Mean 162 141 113 Pulse Ox 94 92 94 Oxygen Delivery Method Nasal Cannula Oxygen Flow Rate (L/min) 3.5 MDM <LEAH Cooley - Last Filed: 04/23/25 21:52> [facility] Narrative Medical decision making narrative: Patient presenting today after being sent over by her PCPs office due to concerns for tachycardia. She has a history of A-fib/flutter on Eliquis. She is compliant with her medications. She has chronic dyspnea due to her history of COPD but has been feeling more dyspneic recently. She had a echo in 2022 that showed an EF of 60%. Cardiac labs obtained, her CBC and BMP are largely unremarkable, initial troponin unremarkable. Low suspicion for PE given she is on Eliquis. Chest x-ray shows cardiomegaly with mild congestion. Her O2 saturation has remained above 90% on her normal home O2. She was given IV Cardizem due to a heart rate of 129 bpm, repeat heart rate is 89 bpm. She did become tachycardic again with a heart rate around 129 bpm. On further questioning she did admit to daily alcohol use, she reports that she has about 2 shots daily, she does not feel that she is going through alcohol withdrawal. She was placed on a Cardizem drip. She will be admitted to the hospital in stable condition. I have personally performed a face to face assessment of the patient and have reviewed the SACHI Note. I performed a substantive portion of the visit including all aspects of the following. My diaz findings include: History is 69-year-old female sent in due to accelerated heart rate history of recently diagnosed atrial flutter on beta-stefanie. Exam is [C 9-year-old female vital signs stable she is tachycardic 129 atrial flutter on the monitor. Temperature nine 9.3. H EENT exam pupils round react to light. Moist with membranes. Neck nontender no lymphadenopathy. Lungs clear to auscultation. Heart tachycardic 130 no murmur. Chest wall ribs nontender. Abdomen soft nontender. Moving all 4 extremities. Nontender. Neurologically patient awake alert. Answer questions following commands.] Medical Decision Making [patient with atrial flutter rapid rate. Treated with IV Cardizem. Screening labs being obtained. Due to a recent fever even though clinically she looks benign we checked a chest x-ray and a UA.] Other additions or changes: [None] Lab Data Attestation: I reviewed the patient's lab results. Labs: Laboratory Results - last 24 hr 04/23/25 04/23/25 04/23/25 17:50 19:50 19:55 WBC 9.0 RBC 4.07 L Hgb 12.7 Hct 40.2 MCV 98.8 MCH 31.2 MCHC 31.6 L RDW Std Deviation 51.3 H RDW Coeff of Karly 14.2 Plt Count 285 MPV 10.4 Immature Gran % (Auto) 0.300 Neut % (Auto) 83.8 H Lymph % (Auto) 7.9 L [place] % (Auto) 6.6 Eos % (Auto) 0.8 Baso % (Auto) 0.6 Absolute Neuts (auto) 7.6 Absolute Lymphs (auto) 0.71 L Nucleated RBC % 0 Sodium 145 Potassium 3.9 Chloride 96 L Carbon Dioxide 38.0 H Anion Gap 10 BUN 14 Creatinine 0.65 L Estim Creat Clear Calc 85.20 Est GFR (MDRD) Non-Af 97 BUN/Creatinine Ratio 22.2 H Glucose 110 H Calcium 9.6 Troponin T High Sens < 6 Troponin T Hi Sens 2 Hr < 6 Urine Color Yellow Urine Clarity Clear Urine pH 6.0 Ur Specific [place] 1.015 Urine Protein 30 H Urine Glucose (UA) Normal Urine Ketones 50 H Urine Occult Blood Negative Urine Nitrite Negative Urine Bilirubin 1 H Urine Urobilinogen 1 H Ur Leukocyte Esterase 25 H Urine RBC 0 SEEN Urine WBC 10-25 SEEN Ur Squamous Epith Cells 5-10 SEEN Urine Bacteria 2+ Urine Mucus 2+ Radiography X-Ray: Read by ED Physician Diagnostic Testing: Clinical Impression(s) from Imaging Studies Chest X-Ray 04/23/25 17:37 IMPRESSION: Cardiomegaly with mild congestion. Reading Location: [facility] Brain CT 04/23/25 18:04 IMPRESSION: 1. No acute intracranial hemorrhage, midline shift or mass effect. If symptoms persist, further evaluation with MRI is recommended. 2. Mild small vessel ischemic/degenerative changes. Reading Location: [facility] EKG Initial EKG: Comments: 129 bpm, atrial flutter, no ST elevation, interpreted by attending ED physician <Dr. Clay Hager MD - Last Filed: 04/23/25 20:27> [facility] MDM Narrative Medical decision making narrative: Patient presenting today after being sent over by her PCPs office due to concerns for tachycardia. She has a history of A-fib/flutter on Eliquis. She is compliant with her medications. She has chronic dyspnea due to her history of COPD but has been feeling more dyspneic recently. She had a echo in 2022 that showed an EF of 60%. Cardiac labs obtained, her CBC and BMP are largely unremarkable, initial troponin unremarkable. Chest x-ray shows cardiomegaly with mild congestion. Her O2 saturation has remained above 90% on her normal home O2. She was given IV Cardizem due to a heart rate of 129 bpm, repeat heart rate is 89 bpm. I have personally performed a face to face assessment of the patient and have reviewed the SACHI Note. I performed a substantive portion of the visit including all aspects of the following. My diaz findings include: History is 69-year-old female sent in due to accelerated heart rate history of recently diagnosed atrial flutter on beta-stefanie. Exam is [C 9-year-old female vital signs stable she is tachycardic 129 atrial flutter on the monitor. Temperature nine 9.3. H EENT exam pupils round react to light. Moist with membranes. Neck nontender no lymphadenopathy. Lungs clear to auscultation. Heart tachycardic 130 no murmur. Chest wall ribs nontender. Abdomen soft nontender. Moving all 4 extremities. Nontender. Neurologically patient awake alert. Answer questions following commands.] Medical Decision Making [patient with atrial flutter rapid rate. Treated with IV Cardizem. Screening labs being obtained. Due to a recent fever even though clinically she looks benign we checked a chest x-ray and a UA.] Other additions or changes: [None] History & Record Review Discussion w/independent historian: Patient and Family Additional record(s) reviewed:: Prior inpatient record, Prior outpatient record, Prior ED visit and Prior labs Lab Data Lab results narrative: CBC white count 9 H&H 12 and 40. Platelets 285. Electrolytes shows sodium 145. Gap 10. BUN and creatinine 14 and 0.6. Glucose 110. Troponin less than 6. Labs: Laboratory Results - last 24 hr 04/23/25 04/23/25 04/23/25 17:50 19:50 19:55 WBC 9.0 RBC 4.07 L Hgb 12.7 Hct 40.2 MCV 98.8 MCH 31.2 MCHC 31.6 L RDW Std Deviation 51.3 H RDW Coeff of Karly 14.2 Plt Count 285 MPV 10.4 Immature Gran % (Auto) 0.300 Neut % (Auto) 83.8 H Lymph % (Auto) 7.9 L [place] % (Auto) 6.6 Eos % (Auto) 0.8 Baso % (Auto) 0.6 Absolute Neuts (auto) 7.6 Absolute Lymphs (auto) 0.71 L Nucleated RBC % 0 Sodium 145 Potassium 3.9 Chloride 96 L Carbon Dioxide 38.0 H Anion Gap 10 BUN 14 Creatinine 0.65 L Estim Creat Clear Calc 85.20 Est GFR (MDRD) Non-Af 97 BUN/Creatinine Ratio 22.2 H Glucose 110 H Calcium 9.6 Troponin T High Sens < 6 Troponin T Hi Sens 2 Hr < 6 Urine Color Yellow Urine Clarity Clear Urine pH 6.0 Ur Specific [place] 1.015 Urine Protein 30 H Urine Glucose (UA) Normal Urine Ketones 50 H Urine Occult Blood Negative Urine Nitrite Negative Urine Bilirubin 1 H Urine Urobilinogen 1 H Ur Leukocyte Esterase 25 H Urine RBC 0 SEEN Urine WBC 10-25 SEEN Ur Squamous Epith Cells 5-10 SEEN Urine Bacteria 2+ Urine Mucus 2+ Radiography Diagnostic Testing: Clinical Impression(s) from Imaging Studies Chest X-Ray 04/23/25 17:37 IMPRESSION: Cardiomegaly with mild congestion. Reading Location: [facility] Brain CT 04/23/25 18:04 IMPRESSION: 1. No acute intracranial hemorrhage, midline shift or mass effect. If symptoms persist, further evaluation with MRI is recommended. 2. Mild small vessel ischemic/degenerative changes. Reading Location: [facility] Discharge Plan Triage Chief Complaint: Palpitations ED Midlevel Provider: Cele Morgan ED Provider: Clay Hager Dx/Rx/DC Orders Clinical Impression: Shortness of breath, On home oxygen therapy, Alcohol abuse, Hypertension, COPD (chronic obstructive pulmonary disease), Atrial flutter Prescriptions: No Action cinnamon bark [Cinnamon] 500 mg capsule 500 mg PO QDAY mecobalamin (vitamin B12) 1,000 mcg tablet,chewable 1,000 mcg PO QDAY Oxygen, Home [Home Oxygen] 2 - 4 lpm NASAL QHS ascorbic acid (vitamin C) 500 mg capsule 500 mg PO DAILY PRN albuterol sulfate 90 mcg/actuation aerosol powdr breath activated 2 inh inhalation Q6H PRN (Reason: shortness of breath) Trelegy Ellipta 200-62.5-25 mcg blister with device 1 ea inhalation DAILY triamcinolone acetonide 0.5 % cream 1 applic topical BID PRN (Reason: itching) ipratropium-albuterol 0.5 mg-3 mg(2.5 mg base)/3 mL solution for nebulization 3 ml inhalation Q6H PRN (Reason: shortness of breath) multivitamin [Daily Multi-Vitamin] Tablet 1 tab PO DAILY Ipava Saline 0.65 % aerosol,spray 1 spray intranasal BID PRN (Reason: dry nasal passages) guaifenesin [Mucus Relief ER] 1,200 MG tablet 1,200 mg PO BID PRN (Reason: cough) metoprolol tartrate 50 mg Tablet 50 mg PO BID Qty: 60 2RF furosemide 40 mg tablet 40 mg PO BID Qty: 60 2RF potassium chloride [Klor-Con M20] 20 mEq tablet,ER particles/crystals 20 meq PO BID Qty: 60 2RF Eliquis 5 mg Tablet 5 mg PO BID Qty: 60 2RF Primary Care Provider: Phuc Martines Referrals: Phuc Martines DO [Primary Care Provider] - Print Language: Luxembourgish Disposition Disposition: Acute Care Hospital [facility]
--- NOTE | 2025-04-23 17:37 | RAD_ITS ---
EXAM: XR Chest, 2 Views CLINICAL INDICATION: SOB TECHNIQUE: Frontal and lateral views of the chest. COMPARISON: No relevant prior studies available. FINDINGS: LUNGS AND PLEURAL SPACES: See below. HEART: Cardiomegaly with mild congestion. MEDIASTINUM: Unremarkable. Normal mediastinal contour. BONES/JOINTS: Unremarkable. No acute fracture. RAD/Chest PA and Lateral IMPRESSION: Cardiomegaly with mild congestion. Reading Location: [id number]
--- NOTE | 2025-04-23 18:04 | CT_ITS ---
EXAM: CT Head Without Intravenous Contrast CLINICAL INDICATION: HEADACHE ON ELIQUIS TECHNIQUE: Axial computed tomography images of the head/brain without intravenous contrast. This CT exam was performed using one or more of the following dose reduction techniques: automated exposure control, adjustment of the mA and/or kV according to patient size, and/or use of iterative reconstruction technique. COMPARISON: No relevant prior studies available. FINDINGS: BRAIN AND EXTRA-AXIAL SPACES: The cerebral and cerebellar sulci are mildly prominent consistent with mild brain atrophy. No acute intracranial hemorrhage, midline shift or mass effect. If symptoms persist, further evaluation with MRI is recommended. Mild areas of decreased attenuation in the deep cerebral white matter are consistent with mild small vessel ischemic/degenerative changes. BONES/JOINTS: Unremarkable. No acute fracture. SOFT TISSUES: Unremarkable. SINUSES: Unremarkable as visualized. No acute sinusitis. MASTOID AIR CELLS: Unremarkable as visualized. No mastoid effusion. CT/Brain/Head without Contrast IMPRESSION: 1. No acute intracranial hemorrhage, midline shift or mass effect. If symptoms persist, further evaluation with MRI is recommended. 2. Mild small vessel ischemic/degenerative changes. Reading Location: [id number]
[2025-04-23 18:05] LABS: Hematocrit 40.2 % (37-47); Hemoglobin 12.7 g/dL (12.0-15.0); Immature Granulocytes Count 0.030 X10^3/uL (0.0-0.0); Mean Corp Hgb Conc 31.6 g/dL (32-36); Mean Corpuscular Volume 98.8 fL (81-99); Mean Platelet Vol. 10.4 fl (6.2-12.0); NRBC Flagged by Analyzer 0 % (0-5); Platelet Count 285 K/mm3 (150-450); RBC Distribution Width CV 14.2 % (11.6-14.6); RBC Distribution Width SD 51.3 fl (35.1-43.9); Red Blood Count 4.07 M/mm3 (4.2-5.4); White Blood Count 9.0 K/mm3 (4.4-11.0)
[2025-04-23 18:34] LABS: Anion Gap 10 (5-15); BUN 14 mg/dL (4-19); BUN/Creat Ratio 22.2 RATIO (10-20); Calcium,Total 9.6 mg/dL (7.6-11.0); Carbon Dioxide 38.0 mmol/L (21.0-32.0); Chloride 96 mmol/L (98-108); Estimated Creatinine Clearance 85.20 ml/min (50-250); Glucose 110 mg/dL (70-99); Potassium 3.9 mmol/L (3.3-5.1)
[2025-04-23 18:49] LABS: Troponin T High Sensitivity < 6 ng/L (<=14)
[2025-04-23 20:10] LABS: Red Blood Cells-Urine 0 SEEN /hpf (0-5)
[2025-04-23 20:15] LABS: Color, Urine Yellow (Yellow); Glucose, Dipstick Normal (Normal); Ketone-Dipstick 50 mg/dl (Negative); Leukocyte Esterase-Dipstick 25 /ul (Negative); Nitrite-Dipstick Negative (Negative); Occult Blood-Urine Negative /ul (Negative); Protein-Dipstick 30 mg/dl (Negative); Specific Gravity, Urine 1.015 (1.002-1.030)
[2025-04-23 20:16] LABS: Urine Bilirubin Dipstick 1 mg/dL (Negative)
[2025-04-23 20:46] LABS: Mucous, Urine 2+ /hpf (<or=2+); Squamous Epithelial Cells - UA 5-10 SEEN /hpf (5-10)
[2025-04-23 21:06] LABS: Troponin T High Sens 2 HR < 6 ng/L (<=14)
--- NOTE | 2025-04-23 21:49 | HP.PCM.HOS_ITS ---
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, Morbid obesity, PAF/Flutter, HTN, HLD, COPD w/ Chronic Hypoxic Respiratory Failure (3L-6L NC, she notes primarily 3.5 to 4 L at rest and up to 6 L with activity, uses similarly 3.5 to 4 L at bedtime also), Former tobacco use, ROXY not on PAP therapy, EtOH abuse recently cut back who presents to [facility] ED on 04/23/2025 with history of increased dyspnea above her baseline with underlying history of chronic dyspnea worse with any exertion with no recent URI type illness or increased productive cough with onset of fever Saturday of 102 with mild nasal congestion at that time prompting urgent care evaluation with also concern for urinary tract infection started on Macrobid however the urine culture resulted negative with PCP reevaluation in the office on day of presentation with heart rate at that time noted to be 129 prompting ED evaluation to be cautious. She also notes that recently following 1 dose of Macrobid she did have onset of diffuse patchy erythematous rash without significant pruritus or raised noted to be blanching which she thought was a reaction specifically given timeline. Workup in the ED included T99.3, heart rate 129, BP 133/96, respiratory rate 20, 90% on nasal cannula 3.5 L with most heart rate going down in the ED to 89 however most recent repeat vitals with heart rate 126, BP 156/92, respiratory rate 24, 94% on 3.5 L nasal cannula, CBC with WC 9.0, hemoglobin 12.7, platelet 285 with lymphopenia, BMP with chloride 96, carbon oxide 38, BUN/creatinine 14/0.65, GFR 97, glucose 110, troponin initial less than 6 with repeat delta less than 6, urinalysis with specific gravity 1.015, protein 30, ketones 50, occult blood negative, nitrate negative, leukocyte esterase 25 with urine WBCs 10-25 however urine squamous epithelial cells also noted to be 5-10 with 2+ urine bacteria, chest x-ray with cardiomegaly with mild congestion, CT brain with no acute intracranial finding with mild small vessel ischemic/degenerative changes, EKG PAFlutter w/ RVR. In the ED patient administered diltiazem 25 mg IV bolus x 1 and placed on a diltiazem drip. [facility] Medical History (Updated 04/23/25 @ 22:[address] Virginia Henriquez MD) Pulmonary nodule Atrial flutter Shortness of breath ROXY (obstructive sleep apnea) Leiomyoma of uterus Internal hemorrhoids with complication Hypertension Diverticulosis of colon Chronic hypoxemic respiratory failure Alcohol abuse Former smoker On home oxygen therapy Irregular heart beat Atrial fibrillation COPD (chronic obstructive pulmonary disease) Home Medications ?Medication ?Instructions ?Recorded ?Last Taken ?Type Oxygen, Home [Home Oxygen] 2 - 4 lpm QHS 11/13/17/02/19 History albuterol sulfate 90 mcg/actuation 2 inh inhalation Q6 H PRN shortness 02/19/25 Unknown History breath activated powder inhaler of breath fluticasone fur. 200 mcg-umeclid 1 ea inhalation DAILY sob 02/19/25 02/19/25 History 62.5 mcg-vilant 25 mcg inhalat.powder (Trelegy Ellipta) guaifenesin 1,200 mg tablet, 1,200 mg PO BID PRN cough 02/19/25 Unknown History extended release 12 hr (Mucus Relief ER) ipratropium 0.5 mg-albuterol 3 mg 3 ml inhalation Q6H PRN shortness 02/19/25 02/19/25 History (2.5 mg base)/3 mL nebulization of breath soln multivitamin (Daily Multi-Vitamin 1 tab PO DAILY 02/1902/18/25 History tablet) sodium chloride 0.65 % nasal spray 1 spray intranasal BID PRN dry 02/19/25 Unknown History aerosol ([place] Saline) nasal passages triamcinolone acetonide 0.5 % 1 applic topical BID PRN itching 02/19/25 Unknown History topical cream apixaban 5 mg tablet (Eliquis) 5 mg PO BID blood thinn er #60 tabs 02/23/25 Unknown Rx furosemide 40 mg tablet 40 mg PO BID diuretic #60 ta bs 02/23/25 Unknown Rx metoprolol tartrate 50 mg tablet 50 mg PO BID blood pr essure #60 02/23/25 Unknown Rx tabs potassium chloride 20 mEq 20 meq PO BID supplement #60 tabs 02/23/25 Unknown Rx tablet,extended release(part/cryst) (Klor-Con M) ascorbic acid (vitamin C) 500 mg 500 mg PO DAILY PRN 0 03/30/25 Unknown History capsule cinnamon bark 500 mg capsule 500 mg PO QDAY 03/30/25 U nknown History (Cinnamon) mecobalamin (vitamin B12) 1,000 1,000 mcg PO QDAY 01/19 Unknown History mcg chewable tablet nitrofurantoin 1 cap PO BID uti 04/23/25 Un known History monohydrate/macrocrystals 100 mg capsule nystatin 100,000 unit/gram topical 1 applic topical BI D skin rash 04/23/25 Unknown History cream Allergy/AdvReac Type Severity Reaction Status Date / Time ibuprofen (From Advil) Allergy Mild Hives Verified 04/23/25 16:17 nitrofurantoin (From Allergy Rash Verified 04/23/25 22:06 Macrobid) Family History Father Cancer Mother COPD (chronic obstructive pulmonary disease) Alcoholism Grandmother Hypertension Thyroid disorder Surgical History History of surgery History of colonoscopy History of lumpectomy of right breast Hx of inguinal herniorrhaphy Social History (Updated 04/23/25 @ 22:[address] Virginia Henriquez MD) household members: none Smoking Status: Former smoker how long ago did patient quit smoking: Quit 15 years prior, smoked 1 pack/day since she been 16 until she quit. alcohol intake: current alcohol intake frequency: 0-2 drinks per day Alcohol type: hard liquor details: Hard liquor mixed drinks, previously heavier, down to 2 drinks daily. substance use type: does not use caffeine: Yes ROS ROS Narrative Admission Review of Systems: CONSTITUTIONAL: No weight loss, chills. + Weakness or fatigue, recent fevers. HEENT: + Congestion. Eyes: No visual loss, blurred vision, double vision or yellow sclerae. Ears, Nose, Throat: No hearing loss, sneezing, sore throat. SKIN: No lesions, wounds. + Recent rash following Macrobid initiation. CARDIOVASCULAR: No chest pain, chest pressure or chest discomfort, palpitations, edema, orthopnea, syncopal events. RESPIRATORY: + Dyspnea worse with exertion. No recent marked productive cough, increased wheezing, hemoptysis. GASTROINTESTINAL: No anorexia, nausea, vomiting or diarrhea, abdominal pain, melena, BRBPR. GENITOURINARY: No dysuria, frequency, urgency or retention. NEUROLOGICAL: No headache, dizziness, syncope, paralysis, ataxia, numbness or tingling in the extremities, focal weakness, change in bowel or bladder control, seizure. MUSCULOSKELETAL: + muscle, back pain, joint pain or stiffness. HEMATOLOGIC: No anemia. + Easy bleeding/bruising. LYMPHATICS: No enlarged nodes. No history of splenectomy. PSYCHIATRIC: No history of depression or anxiety. ENDOCRINOLOGIC: No reports of sweating, cold or heat intolerance. No polyuria or polydipsia. ALLERGIES: No history of asthma, hives, eczema or rhinitis. Vital Signs Vital Signs Vital Signs: 04/23/25 16:18 04/23/25 16:50 04/23/25 16:50 Temperature 99.3 F H Temperature Source Oral Pulse Rate 129 H 125 H Respiratory Rate 20 H 16 Respiratory Effort Blood Pressure 133/96 H Blood Pressure Mean 108 Pulse Ox 90 93 Oxygen Delivery Method Nasal Cannula Nasal Cannula Nasal Cannula Oxygen Flow Rate (L/min) 3.5 3.5 04/23/25 16:50 04/23/25 17:21 04/23/25 18:00 Temperature Temperature Source Pulse Rate 104 H 89 Respiratory Rate 24 H 22 H Respiratory Effort Short of Breath Blood Pressure 133/76 H 163/80 H Blood Pressure Mean 95 107 Pulse Ox 94 95 Oxygen Delivery Method Nasal Cannula Nasal Cannula Oxygen Flow Rate (L/min) 4 04/23/25 19:14 04/23/25 20:05 04/23/25 20:15 Temperature Temperature Source Pulse Rate 94 104 H 96 Respiratory Rate 16 22 H 29 H Respiratory Effort Blood Pressure 133/76 H 185/116 H Blood Pressure Mean 95 133 Pulse Ox 93 91 100 Oxygen Delivery Method Oxygen Flow Rate (L/min) 04/23/25 20:30 04/23/25 20:45 04/23/25 21:00 Temperature Temperature Source Pulse Rate 114 H 93 126 H Respiratory Rate 25 H 32 H 24 H Respiratory Effort Blood Pressure 174/154 H 193/118 H 156/92 H Blood Pressure Mean 162 141 113 Pulse Ox 94 92 94 Oxygen Delivery Method Nasal Cannula Oxygen Flow Rate (L/min) 3.5 Weight Weight: 255 lb Body Mass Index (BMI) 43.7 Physical Exam Narrative Physical Examination: General: Awake, alert, oriented x 3 and cooperative, laying in the ED bed, fatigued otherwise no acute distress. Skin: Normal color, normal turgor, no icterus, no cyanosis except for occasional stage ecchymoses, abrasion, diffuse patchy erythematous blanching rash on all extremities and thorax, nonpruritic and again noted to have onset following her initial doses of Macrobid. HEENT: AT/NC, EOMI, PERRLA, MMM, no carotid bruits, difficult to discern JVD given very thickened neck. Lungs: Mildly diminished, greater bases, mildly increased respiratory rate but no distress, no appreciated rales, ronchi or wheezing. Heart: Irregular irregular; no gallop, rub audible. Abdomen: Soft, morbidly obese, NTTP, distant BS, difficult to discern distention and HSM given habitus. Extremities: No cyanosis, no clubbing, no marked distal pitting edema noted, see skin for description of diffuse patchy rash. Neurological: Patient awake, alert, oriented as noted, cognitive function intact; pupils equally reactive to light and accommodation, cranial nerves grossly normal, moving all 4 extremities, no focal deficits, strength moderately globally decreased. Psychiatric: Affect appears fatigued otherwise normal, no acute evidence of depressive or anxiety feelings. Results Lab / Micro Data 04/23/25 17:50 04/23/25 17:50 Labs: Laboratory Results - last 24 hr 04/23/25 17:50: WBC 9.0, RBC 4.07 L, Hgb 12.7, Hct 40.2, MCV 98.8, MCH 31.2, M CHC 31.6 L, RDW Std Deviation 51.3 H, RDW Coeff of Karly 14.2, Plt Count 285, MPV 10.4, Immature Gran % (Auto) 0.300, Neut % (Auto) 83.8 H, Lymph % (Auto) 7.9 L, Clarke % (Auto) 6.6, Eos % (Auto) 0.8, Baso % (Auto) 0.6, Absolute Neuts (auto) 7.6, Absolute Lymphs (auto) 0.71 L, Nucleated RBC % 0, Sodium 145, Potassium 3.9, Chloride 96 L, Carbon Dioxide 38.0 H, Anion Gap 10, BUN 14, Creatinine 0.65 L, Estim Creat Clear Calc 85.20, Est GFR (MDRD) Non-Af 97, BUN/Creatinine Ratio 22.2 H, Glucose 110 H, Calcium 9.6, Troponin T High Sens < 6 04/23/25 19:50: Urine Color Yellow, Urine Clarity Clear, Urine pH 6.0, Ur Specific [place] 1.015, Urine Protein 30 H, Urine Glucose (UA) Normal, Urine Ketones 50 H, Urine Occult Blood Negative, Urine Nitrite Negative, Urine Bilirubin 1 H, Urine Urobilinogen 1 H, Ur Leukocyte Esterase 25 H, Urine RBC 0 SEEN, Urine WBC 10-25 SEEN, Ur Squamous Epith Cells 5-10 SEEN, Urine Bacteria 2+, Urine Mucus 2+ 04/23/25 19:55: Troponin T Hi Sens 2 Hr < 6 Imaging Radiology Impression Chest X-Ray 04/23/25 17:37 IMPRESSION: Cardiomegaly with mild congestion. Reading Location: [facility] Brain CT 04/23/25 18:04 IMPRESSION: 1. No acute intracranial hemorrhage, midline shift or mass effect. If symptoms persist, further evaluation with MRI is recommended. 2. Mild small vessel ischemic/degenerative changes. 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, Morbid obesity, PAF/Flutter, HTN, HLD, COPD w/ Chronic Hypoxic Respiratory Failure (3L-6L NC), Former tobacco use, ROXY not on PAP therapy, EtOH abuse recently cutting back who presents to [facility] ED on 04/23/2025 with history of increased dyspnea above her baseline with underlying history of chronic dyspnea worse with any exertion with no recent URI type illness or increased productive cough with onset of fever Saturday of 102 with mild nasal congestion at that time prompting urgent care evaluation with also concern for urinary tract infection started on Macrobid however the urine culture resulted negative with PCP reevaluation in the office on day of presentation with heart rate at that time noted to be 129 prompting ED evaluation to be cautious. #1. Acute dyspnea, progressively worsening secondary to likely #2 in addition to possible acute viral syndrome complicated by underlying chronic COPD with chronic hypoxic respiratory failure: Will admit to PCU given #2, will maintain on home oxygen supplementation, continue ATC budesonide especially given #2, PRN albuterol only if absolutely necessary, encourage HOB, IS parameters, will obtain sputum Cx, respiratory viral panel, procalcitonin. #2. Paroxsymal atrial flutter w/ RVR with concern for possible associated mild overload as a result: EKG in ED w/ atrial flutter w/ RVR. Patient administered Cardizem bolus and eventually placed on a drip in ED. Will pulsed dose with Lasix 40 mg IV x 1, will maintain on telemetry, obtain cardiac enzyme serial set, obtain magnesium level, obtain TSH level. Most recent echocardiogram noted 02/19/2025 with borderline LV systolic function with LVEF 45 to 50%, moderate global RV systolic dysfunction, mild biatrial dilatation, moderate MVI, mild TBI, RVSP 53 mmHg thus will defer repeating. Will continue Cardizem drip and home Eliquis regimen. Attempt transition once appropriate back to home BB therapy. If not responding may require Cardiology involvement. #3. Recent concern for UTI, complicated ruled out with possible Macrobid allergic reaction: Patient with evaluation on Saturday with concern for possible UTI started on Macrobid however culture resulted negative per her report and she was de-escalated off of Macrobid per her PCP. Discussed with nursing staff and will place Macrobid as a rash allergy. Discussed with patient we will continue to monitor. #4. EtOH Abuse, recently cutting back: She notes that her passed this last August and she did increase her alcohol not significantly but her reimbursement liaison Dr. Elena did discuss this with her and she is now down to 2 alcoholic drinks daily however given the fact that she is a female a total of 14 drinks weekly would be above the recommendation. To be cautious will maintain on CIWA protocol, MVI, thiamine and folic acid. #5. Hypertension: Continue home regimen including Lasix, metoprolol, IV Cardizem drip ongoing as noted with pulse IV Lasix 40 mg x 1 now, PRN hydralazine. #6. Hyperlipidemia: Noted history, not on regimen per current list, not listed as an allergy, FLP in AM. #7. Morbid Obesity: Weight loss and lifestyle changes encouraged. #8. History of VTE: Patient with history of DVT, PE, continue Eliquis home regimen. #9. Former tobacco use: Encourage continued tobacco cessation. #10. ORXY: Patient reports that she only uses supplemental oxygen, no PAP therapy. #11. DVT prophylaxis: Will continue patient on Eliquis regimen. #12. CODE status: Patient ARACELI is her daughter and living will is currently in place. Discussed CODE status at length including difference between FULL code, DNR-CCA and DNR-CC status. Following discussions about the differences in these status, requested Full Code status. Advanced Care Planning Face to Face Time: 16 minutes. Charges/Coding Visit Charges Inpatient E&M: 31171 Init Hosp L3 Procedures Hospitalists Procedures: 96193 Advncd Care Plan 30 Min
--- OUTSIDE RECORDS SUMMARY | 2025-04-23 21:57 | XMS RPT_ITS | CCD ---
Author Organization [facility] ion Partnership [facility] Care Team Providers Care Air Drier Name Role Phone MARGOT GALVAN Unavailable Unavailable BRUNO, MARGOT T Unavailable Unavailable BRUNO MARGOT Yonatan Unavailable Unavailable Phuc Martines DO Primary Care Provider Phuc Martines DO Primary Care Provider Phuc Martines DO Primary Care Provider Phuc Martines DO Primary Care Provider Hodan Christine PA-C Unavailable Phuc Martines DO Primary Care Provider Ad AVIATION TACTICAL READINESS OFFICER.Vicky GAN Unavailable Fernando AVIATION TACTICAL READINESS OFFICER.Pratibha GAN Unavailable Dr. Phuc Martines DO Primary Care Provider [phone] Dr. Linwood Ivy DO Emergency Provider Dr. Kym Norton MD Admit Provider Dr. Kym Norotn MD Other Provider Robert ARELLANO, Dr. Yee Queen Attending Provider Dr. Claudia Valerio DO Other Provider Dr. Claudia Valerio DO Attending Provider Dr. Mercy Purvis MD Attending Provider Robert ARELLANO, Dr. Yee Queen Other Provider [phone] Kym Norton Consulting Unavailable Kym Norton Admitting Unavailable Yee Jones Attending Unavailable Martines, Phuc Primary Care Unavailable Teodoro, Claudia Consulting Unavailable Errol, Kym Consulting Unavailable Teodoro, Claudia Attending Unavailable Norton, Kym Admitting Unavailable Martines, Phuc Primary Care Unavailable Teodoro, Claudia Consulting Unavailable Robert, Yee Bernice Attending Unavailable Robert, Yee Bernice Consulting Unavailable Errol, Kym Attending Unavailable Bryan Elena Attending Unavailable Martines, Phuc Referring Unavailable Martines, Phuc Primary Care Unavailable Mercy Purvis Attending Unavailable Martines, Phuc Primary Care Unavailable Dane Kurtz Attending Unavailable Martines, Phuc Primary Care Unavailable MartinesDr. Phuc jarvis DO Referring Provider Dr. Bryan Elena MD Attending Provider Terrie Robledo APRN.CNP Unavailable MARTINES, PHUC L Primary Care Unavailable JANETTE DAMON Attending Unavailable MARTINES, PHUC L Referring Unavailable MARTINES, PHUC L Primary Care Unavailable MARTINES, PHUC L Primary Care Unavailable LISA GOODMNA Attending Unavailable MARTINES, PHUC L Primary Care Unavailable LISA GOODMAN Attending Unavailable MARTINES, PHUC L Primary Care Unavailable MARTINES, PHUC L Attending Unavailable DIANA GONZALEZ Attending Unavailable MARTINES, PHUC L Primary Care Unavailable MARTINES, PHUC L Primary Care Unavailable MARTINES, PHUC L Referring Unavailable HARPSTER, MARICRUZ Referring Unavailable MARTINES, PHUC L Primary Care Unavailable HARPSTER, MARICRUZ Referring Unavailable MARTINES, PHUC L Primary Care Unavailable HARHAMILTONTER, MARICRUZ Attending Unavailable JANETTE DAMON Attending Unavailable MARTINES, PHUC L Primary Care Unavailable DAMON EUGENE Attending Unavailable MARTINES, PHUC L Primary Care Unavailable MARTINES, PHUC L Primary Care Unavailable HARPSTER, MARICRUZ Referring Unavailable MARTINES, PHUC L Primary Care Unavailable HARPSTER, MARICRUZ Referring Unavailable MARTINES, PHUC L Primary Care Unavailable HARPSTER, MARICRUZ Attending Unavailable MARTINES, PHUC L Referring Unavailable MARTINES, PHUC L Primary Care Unavailable Allergies Allergy Classification Reported Allergen(s) Allergy Type Date of Onset Reaction(s) Facility (20 sources) Naproxen; Translations: [NAPROXEN] Drug Allergy 05-31-2020 [facility] Work Phone: (2 sources) Ibuprofen Drug Allergy 02-19-2025 [facility] (1 source) Ibuprofen Drug Allergy 03-30-2025 [facility] Repository Medications Current Medications Medication Drug Class(es) Dates Sig (Normalized) Sig (Original) 200 actuat albuterol 0.09 mg/actuat dry powder inhaler (20 sources) beta2-Adrenergic Agonist Start: 02-19-2025 Albuterol Sulfate 90 mcg/actuation aerosol powdr breath activated Active 2 NMA INHALATION EVERY 6 HOURS as needed for shortness of breath February 19, 2025 12:00am Start: 12-25-2024 take 2 puff(s) by in halation every six hours as needed for wheezing albuterol HFA (PROVENTIL HFA, VENTOLIN HFA) 90 mcg/actuation inhaler Inhale 2 Puffs as instructed every 6 hours as needed for wheezing/shortness of breath. 18 g 5 12/25/2024 Active Start: 12-06-2022 End: 12-26-2023 albuterol (PROVENTIL) 2.5 mg /3 mL (0.083 %) nebulizer solution Indications: Chronic obstructive pulmonary disease, unspecified COPD type (HCC) , Chronic respiratory failure with hypoxia (HCC) Use 3 mL via nebulizer every 4 hours as needed for wheezing/shortness of breath. Use over 5-15minutes. 120 mL 11 12/06/2022 12/26/2023 Discontinued Start: 02-09-2022 End: 12-25-2024 take 2 puff(s) by inhalation every six hours as needed for wheezing albuterol HFA (PROVENTIL HFA, VENTOLIN HFA) 90 mcg/actuation inhaler Inhale 2 Puffs as instructed every 6 hours as needed for wheezing/shortness of breath. 1 Inhaler 5 02/09/2022 12/25/2024 Discontinued Start: 09-15-2020 End: 02-09-2022 take 2 puff(s) by inhalation every four hours as needed for wheezing ProAir RespiClick 90 mcg/actuation breath activated (albuterol sulfate) Indications: Chronic obstructive pulmonary disease, unspecified COPD type (HCC) Inhale 2 Puffs as instructed every 4 hours as needed for Wheezing/Shortness of Breath. 3 Each 3 09/15/2020 02/09/2022 Discontinued Comment on above: Inhale 2 Puffs as in structed every 4 hours as needed for Wheezing/Shortness of Breath. Inhale 2 Puffs as in structed every 6 hours as needed for wheezing/shortness of breath. Use 3 mL via nebuliz er every 4 hours as needed for wheezing/shortness of breath. Use over 5-15minutes. albuterol 0.833 mg/ml / ipratropium bromide 0.167 mg/ml inhalation solution (20 sources) Anticholinergic, beta2-Adrenergic Agonist Start: 025 take 1 mL by inhalation every six hours as needed Ipratropium-Albute rol 0.5 mg-3 mg(2.5 mg base)/3 mL solution for nebulization Active 3 mL INHALATION EVERY 6 HOURS as needed for shortness of breath February 19, 2025 12:00am Start: 04-23-2017 End: 12-04-2022 take 3 mL by inhalation four times daily ipratropium-albuterol (DUONEB) 0.5 mg-3 mg(2.5 mg base)/3 mL nebu Inhale 3 mL as instructed four times daily. Inhale via nebulizer over 5-15 minutes. 120 Each 11 12/04/2022 Active Comment on above: Inhale 3 mL as instr ucted four times daily. Inhale via nebulizer over 5-15 minutes. amoxicillin 875 mg / clavulanate 125 mg oral tablet (1 source) Penicillin-class Antibacterial Start: 03-13-20 24 End: 03-23-20 24 take 1 tablet by mouth twice daily amoxicillin-clavula douglas potassium (AUGMENTIN) 875-125 mg per tablet Indications: Chronic obstructive pulmonary disease, unspecified COPD type (HCC) , Acute bronchitis with chronic obstructive pulmonary disease (COPD) (HCC) (HCC) , Acute otitis media, left Take 1 tablet by mouth two times a day for 10 days. 20 tablet 0 03/13/2024 03/23/2024 Active apixaban 5 mg oral tablet (9 sources) Factor Xa Inhibitor Start: 02-24-20 25 take 1 tablet by mouth twice daily apixaban (ELIQUIS) 5 mg tab(s) Take 5 mg by mouth two times a day. 02/23/2025 Active ascorbic acid 500 mg oral capsule (3 sources) Vitamin C Start: 11-13-19 18 End: 03-30-20 25 take 1 capsule by mouth once daily as needed Ascorbic Acid (Vitamin C) 500 mg capsule Active 500 mg PO DAILY as needed March 30, 2025 11:32am Ascorbic Acid / Bioflavonoids (20 sources) Vitamin C take 1 capsule by mouth once daily ASCORBIC ACID/BIOFLAVONOIDS (SIVAN C ORAL) Take 1 capsule by mouth once daily. Active take 1 capsule by mouth once jigna ly ASCORBIC ACID/BIOFLAVONOIDS (SIVAN C ORAL) Take 1 capsule by mouth once daily. 0 Active Comment on above: Take 1 capsule by mo ut once daily. cinnamon bark 500 mg oral capsule (8 sources) Start: 03-30-2025 take 1 capsule by mouth once daily Cinnamon Bark (Cinnamon) 500 mg capsule Active 500 mg PO daily March 30, 2025 12:00am cinnamon bark (C INNAMON ORAL) Take by mouth once daily. Active COMPOUNDED PRESCRIPTION (20 sources) Start: 04-23-2017 COMPOUNDED PRE SCRIPTION Please dispense nebulizer and supply kit, including tubing, mouth piece, and hose. Assoc diagnosis: J44.9. Dispense: 1 each, Refills: 99. 1 Each 04/23/2017 Active COMPOUNDED PRESC RIPTION 3.5L of O2 at night and 6L with exertion. Active COMPOUNDED PRESC RIPTION 3.5L of O2 at night and 6L with exertion. 0 Active COMPOUNDED PRESC RIPTION 2L of O2 at night and with exertion. 0 Active Comment on above: 2L of O2 at night an d with exertion. Please dispense nebu lizer and supply kit, including tubing, mouth piece, and hose. Assoc diagnosis: J44.9. Dispense: 1 each, Refills: 99. 3.5L of O2 at night and 6L with exertion. doxycycline monohydrate 100 mg oral tablet (3 sources) Tetracycline-class Drug Start: 04-26-2024 End: 05-03-2024 take 1 tablet by mouth twice daily doxycycline monohydrate 100 mg tablet Indications: Skin infection Take 1 tablet by mouth two times a day for 7 days. 14 tablet 0 04/26/2024 05/03/2024 Active Start: 03-13-2024 End: 03-23-2024 take 1 tablet by mouth twice daily doxycycline (VIBRA-TABS) 100 mg tablet Indications: Chronic obstructive pulmonary disease, unspecified COPD type (HCC) , Acute bronchitis with chronic obstructive pulmonary disease (COPD) (HCC) (HCC) Take 1 tablet by mouth two times a day for 10 days. 20 tablet 0 03/13/2024 03/23/2024 Active Start: 09-28-2022 End: 10-08-2022 take 1 tablet by mouth twice daily doxycycline (VIBRA-TABS) 100 mg tablet Indications: COVID , Bacterial sinusitis , Chronic obstructive pulmonary disease, unspecified COPD type (HCC) Take 1 tablet by mouth twice daily for 10 days. 20 tablet 2 09/28/2022 10/08/2022 Active Comment on above: Take 1 tablet by vikash twice daily for 10 days. fluconazole 150 mg oral tablet (1 source) Azole Antifungal Start: 4 End: 4 fluconazole (DIFLUCAN) 150 mg tablet Take 1 tablet by mouth once daily for 3 days. Repeat in 3 days as needed. 3 tablet 1 04/01/2024 04/04/2024 Active Fluticasone-Umeclidi n-Vilanter (2 sources) Start: 5 Fluticasone-Umeclid in-Vilanter (Trelegy Ellipta) 200-62.5-25 mcg blister with device Active 1 NMA INHALATION DAILY February 19, 2025 12:00am fluticasone-umeclidi n-vilanter (TRELEGY ELLIPTA) 200-62.5-25 mcg inhalation powder (13 sources) Start: 5 take 1 puff(s) by inhalation once daily fluticasone-umeclid in-vilanter (TRELEGY ELLIPTA) 200-62.5-25 mcg inhalation powder Inhale 1 Puff as instructed once daily. 60 Each 11 12/25/2024 Active furosemide 40 mg oral tablet (9 sources) Loop Diuretic Start: 5 take 1 tablet by mouth twice daily furosemide (LASIX) 40 mg tablet Take 40 mg by mouth two times a day. 02/23/2025 Active guaiFENesin 1200 mg oral tablet (8 sources) Start: 2 take 2 tablets by mouth twice daily guaiFENesin (MUCINEX) 600 mg 12 hr tablet Indications: COVID , Bacterial sinusitis , Chronic obstructive pulmonary disease, unspecified COPD type (HCC) Take 2 tablets by mouth twice daily. 28 tablet 1 09/28/2022 Active Start: 04-17-2017 End: 02-19-2025 take 1 tablet by mouth twice daily as needed for cough Guaifenesin (Mucus Relief Er) 1,200 MG tablet Active 1200 mg PO TWICE A DAY as needed for cough February 19, 2025 12:00am Comment on above: Take [address] [facility] twice daily. mecobalamin 1 mg chewable tablet (8 sources) Start: 03-30-2025 take 1 tablet by mouth once daily Mecobalamin (Vitamin B12) 1,000 mcg tablet,chewable Active 1000 ug PO daily March 30, 2025 12:00am take 1000 ug by mouth once daily mecobalamin (B12 ACTIVE ORAL) Take 1,000 mcg by mouth once daily. Active metoprolol tartrate 50 mg oral tablet (9 sources) beta-Adrenergic Aleyda Start: 02-23-2025 take 1 tablet by mouth twice daily metoprolol tartrate, short acting, (LOPRESSOR) 50 mg tablet Take 50 mg by mouth two times a day. 02/23/2025 Active Multivitamin (Daily Multi-Vitamin) tablet (2 sources) Start: 02-19-2025 Multivitamin (Daily Multi-Vitamin) tablet Active 1 {tbl} PO DAILY February 19, 2025 12:00am multivitamin tablet (20 sources) Start: 04-07-2012 take 1 tablet by mouth once daily multivitamin tablet Take 1 tablet by mouth once daily. 0 04/07/2012 Active Comment on above: Take [address] tablet [address] [facility] once daily. mupirocin 0.02 mg/mg topical ointment (1 source) RNA Synthetase Inhibitor Antibacterial Start: 01-29-2024 End: 02-08-2024 mupirocin (BACTROBAN) 2 % ointment Indications: Skin infection Apply to affected area three times a day for 10 days. 22 g 0 01/29/2024 02/08/2024 Active Comment on above: Apply to affected ar ea three times a day for 10 days. nystatin 043009 unt/ml topical cream (20 sources) Polyene Antifungal Start: 04-20-2025 End: 05-04-2025 nystatin (MYCOSTATIN) cream Indications: Candidal intertrigo Apply to affected area two times a day for 14 days. 30 g 04/20/2025 05/04/2025 Active Start: 05-01-2022 End: 12-26-2023 nystatin (NYSTOP) powder Indications: Intertrigo Apply 1 application to affected area four times daily. 60 g 3 05/01/2022 12/26/2023 Discontinued Start: 09-02-2020 End: 05-01-2022 nystatin (NYSTOP) powder Indications: Intertrigo Apply 1 application to affected area four times daily. 1 Bottle 4 09/02/2020 05/01/2022 Discontinued Start: 04-17-2017 End: 02-19-2025 take [id number] [IU] by mouth four times daily Nystatin 500,000 UNIT/5 ML suspension Discontinued [id number] U PO 4 TIMES DAILY 1 April 17, 2017 12:00am February 19, 2025 2:18pm 1 week supply Comment on above: Apply 1 application to affected area four times daily. Oxygen, Home (Home Oxygen) (2 sources) Start: 11-13-2017 Oxygen, Home (Home Oxygen) Active 2 - 4 LPM NASAL AT BEDTIME November 13, 2017 1:00am OXYGEN, HOME THERAPY, (20 sources) Start: 10-12-2022 OXYGEN, HOME THERAPY, Indications: Chronic obstructive pulmonary disease, unspecified COPD type (HCC) , Oxygen dependent 3.5L at night and 6L with exertion 10/12/2022 Active Start: 10-12-2022 OXYGEN, HOME T HERAPY, Indications: Chronic obstructive pulmonary disease, unspecified COPD type (HCC) , Oxygen dependent 3.5L at night and 6L with exertion 0 10/12/2022 Active Comment on above: 3.5L at night and 6L with exertion microencapsulated potassium chloride 20 meq extended release oral tablet (9 sources) Start: take 1 tablet by mouth twice daily potassium chloride ER (KLOR-CON) 20 mEq tablet Take 20 mEq by mouth two times a day. 02/23/2025 Active predniSONE 10 mg oral tablet (4 sources) Start: End: predniSONE (DELTASONE) 10 mg tablet Indications: Chronic obstructive pulmonary disease, unspecified COPD type (HCC) , Acute bronchitis with chronic obstructive pulmonary disease (COPD) (HCC) (HCC) Take 4 tabs daily for 3 days, then 2 tabs daily for 3 days, then 1 tab daily for 3 days with food. 21 tablet 0 03/13/2024 03/22/2024 Active Comment on above: Take 4 tabs daily fo r 3 days, then 2 tabs daily for 3 days, then 1 tab daily for 3 days with food. sodium chloride 0.111 meq/ml nasal spray (20 sources) Start: Sodium Chloride ([place] Saline) 0.65 % aerosol,spray Active 1 NMA INTRANASAL TWICE A DAY as needed for dry nasal passages February 19, 2025 12:00am Start: 02-09-2022 End: 05-11-2023 sodium chloride 0.9 % (flush ) 10 mL (BD POSIFLUSH) triamcinolone acetonide 5 mg/ml topical cream (20 sources) Corticosteroid Start: 02-19-2025 Triamcinolone Acetonide 0.5 % cream Active 1 NMA TOPICAL TWICE A DAY as needed for itching February 19, 2025 12:00am Start: 08-14-2023 triamcinolone acetonide (KENALOG) 0.5 % cream Indications: Rash of foot Apply 1 application to affected area two times a day as needed (foot rash, eczema). For rash/itching. Apply sparingly. Avoid face/skin fold. 60 g 2 08/14/2023 Active Comment on above: Apply 1 application to affected area two times a day as needed (foot rash, eczema). For rash/itching. Apply sparingly. Avoid face/skin fold. Completed/Discontinued Medications Medication Drug Class(es) Dates Sig (Normalized) Sig (Original) Albuterol Sulfate (Proair Hfa) 1 PUFF inhaler (2 sources) Start: 04-15-2017 End: 02-19-2025 Albuterol Sulfate (Proair Hfa) 1 PUFF inhaler Discontinued 2 NMA INHALATION EVERY 4 HOURS NEEDED as needed for Shortness Of Breath April 15, 2017 12:00am February 19, 2025 2:13pm amLODIPine 10 mg oral tablet (20 sources) Dihydropyridine Calcium Channel Aleyda Start: 08-01-2022 End: 03-31-2025 take 1 tablet by mouth once daily Amlodipine 10 mg tablet Discontinued 10 mg PO DAILY February 19, 2025 12:00am March 24, 2025 10:40am Start: 04-15-2017 End: 02-19-2025 take 1 tablet by mouth once daily Amlodipine 5 MG tablet Discontinued 5 mg PO DAILY April 15, 2017 12:00am February 19, 2025 2:14pm Comment on above: Take [address] [facility] once daily. Beclomethasone Diprop Inhaler (2 sources) Corticosteroid Start: 017 End: take 1 puff(s) by inhalation twice daily Beclomethasone Diprop Inhaler (Qvar 80 Mcg Inhaler) 1 PUFF inhaler Discontinued 2 NMA INHALATION TWICE A DAY April 15, 2017 12:00am February 19, 2025 2:18pm benzonatate 100 mg oral capsule (20 sources) Non-narcotic Antitussive Start: End: take 1 capsule by mouth three times daily as needed for cough benzonatate (TESSALON PERLES) 100 mg capsule Indications: COVID , Bacterial sinusitis , Chronic obstructive pulmonary disease, unspecified COPD type (HCC) Take 1 capsule by mouth three times daily as needed for cough. 30 capsule 1 09/28/2022 06/26/2024 Discontinued Comment on above: Take 1 capsule by [facility] three times daily as needed for cough. cephalexin 500 mg oral capsule (3 sources) Cephalosporin Antibacterial Start: End: take 1 capsule by mouth every six hours Cephalexin 500 mg capsule Discontinued 500 mg PO EVERY 6 HOURS May 06, 2024 12:00am February 19, 2025 2:18pm Start: 01-29-2024 End: 02-05-2024 take 1 capsule by mouth three times daily cephALEXin (KEFLEX) 500 mg capsule Indications: Skin infection Take 1 capsule by mouth three times a day for 7 days. 21 capsule 0 01/29/2024 02/05/2024 Active Comment on above: Take 1 capsule by [facility] three times a day for 7 days. 30 actuat fluticasone furoate 0.1 mg/actuat / umeclidinium 0.0625 mg/actuat / vilanterol 0.025 mg/actuat dry powder inhaler (20 sources) Anticholinergic, Corticosteroid, beta2-Adrenergic Agonist Start: 12-03-2023 End: 12-25-2024 zbdvvryuvma-rghedhzdc-wqy anter (TRELEGY ELLIPTA) 100-62.5-25 mcg inhalation powder Indications: Chronic obstructive pulmonary disease, unspecified COPD type (HCC) USE 1 INHALATION DAILY INSTRUCTED 3 Each 3 11/27/2024 12/25/2024 Discontinued (Course of therapy completed) Start: 12-06-2021 End: 12-04-2022 hngglgmpdax-kcfkreith-wkdfbz er (TRELEGY ELLIPTA) 100-62.5-25 mcg inhalation powder Indications: Chronic obstructive pulmonary disease, unspecified COPD type (HCC) USE 1 INHALATION DAILY INSTRUCTED 3 Each 3 12/04/2022 Active Start: 09-15-2020 End: 08-02-2021 take 1 dose by inhalation once daily TRELEGY ELLIPTA 100-62.5-25 mcg Indications: Chronic obstructive pulmonary disease, unspecified COPD type (HCC) USE 1 INHALATION DAILY INSTRUCTED 3 Each 3 09/15/2020 08/02/2021 Discontinued Comment on above: USE 1 INHALATION JIGNA LY INSTRUCTED hydroCHLOROthiazide 25 mg / triamterene 37.5 mg oral capsule (20 sources) Potassium-sparing Diuretic, Thiazide Diuretic Start: 03-24-2025 End: 03-30-2025 Triamterene-Hydrochlor othiazid 37.5-25 mg capsule Discontinued 1 NMA PO DAILY March 24, 2025 12:00am March 30, 2025 11:31am Start: 09-25-2021 End: 03-01-2025 Triamterene-Hydrochlorothiaz id 37.5-25 mg capsule Discontinued 1 NMA PO DAILY February 19, 2025 12:00am February 23, 2025 1:13pm Start: 07-06-2020 End: 08-02-2021 take 1 capsule by mouth once daily triamterene-hydrochlorothiazide 37.5-25 mg per capsule Indications: Essential hypertension Take 1 capsule by mouth once daily. 90 capsule 3 07/06/2020 08/02/2021 Discontinued Start: 04-15-2017 End: 02-19-2025 Triamterene-Hydrochlorothiaz id 1 EACH tablet Discontinued 1 NMA PO DAILY April 15, 2017 12:00am February 19, 2025 2:22pm Comment on above: Take 1 capsule by [facility] once daily. ipratropium bromide 0.2 mg/ml inhalation solution (11 sources) Anticholinergic Start: End: ipratropium (ATROVENT) 0.02 % nebulizer solution Indications: Chronic obstructive pulmonary disease, unspecified COPD type (HCC) , Chronic respiratory failure with hypoxia (HCC) Use 2.5 mL via nebulizer four times daily as needed for wheezing/shortness of breath. Use over 5-15minutes. 120 mL 11 12/06/2022 12/26/2023 Discontinued Comment on above: Use 2.5 mL via nebul izer four times daily as needed for wheezing/shortness of breath. Use over 5-15minutes. levoFLOXacin 500 mg oral tablet (2 sources) Quinolone Antimicrobial Start: End: take 1 tablet by mouth once daily Levofloxacin 500 MG tablet Discontinued 500 mg PO DAILY April 17, 2017 12:00am February 19, 2025 2:18pm Multivitamin (Daily Multiple) 1 EACH tablet (2 sources) Start: End: take 1 tablet by mouth once daily Multivitamin (Daily Multiple) 1 EACH tablet Discontinued 1 NMA PO DAILY April 15, 2017 12:00am February 19, 2025 2:17pm nitrofurantoin, macrocrystals 25 mg / nitrofurantoin, monohydrate 75 mg oral capsule (3 sources) Nitrofuran Antibacterial Start: End: take 1 capsule by mouth twice daily nitrofurantoin monohydrate and macrocrystal (MACROBID) 100 mg capsule Take 1 capsule by mouth two times a day for 5 days. 10 capsule 04/20/2025 04/23/2025 Discontinued (Side Effects) perflutren lipid microspheres 1.3 mL in NaCl (PF) 0.9% 10 mL injection (DEFINITY) (20 sources) Start: End: perflutren lipid microspheres 1.3 mL in NaCl (PF) 0.9% 10 mL injection (DEFINITY) Salmeterol (2 sources) beta2-Adrenergic Agonist Start: End: take 1 puff(s) by inhalation every twelve hours Salmeterol (Serevent Diskus) 1 PUFF inhaler Discontinued 1 NMA INHALATION EVERY 12 HOURS April 15, 2017 12:00am February 19, 2025 2:18pm Tiotropium [place] (Spiriva With Handihaler) 1 PUFF inhaler (2 sources) Start: End: take 1 puff(s) by inhalation once daily Tiotropium [place] (Spiriva With Handihaler) 1 PUFF inhaler Discontinued 1 NMA INHALATION DAILY April 15, 2017 12:00am February 19, 2025 2:18pm Problems Active Problems Problem Classification Problem Date Documented Da te Episodic/Chronic Alcohol-related disorders (2 sources) Alcohol abuse, uncomplicated; Translations: [Alcohol abuse] Onset: 04-06-2025 03-24-2025 Chronic Comment on above: 4 shots a day Allergic reactions (1 source) Urticaria; Translations: [Urticaria, unspecified] 04-23-2025 Episodic Aortic; peripheral; and visceral artery aneurysms (20 sources) Ectasia of thoracic aorta; Translations: [Thoracic aortic ectasia] Onset: 03-13-2024 03-13-2024 Chronic Benign neoplasm of uterus (20 sources) Uterine leiomyoma; Translations: [Leiomyoma of uterus, unspecified] 05-13-2009 Episodic Cardiac dysrhythmias (17 sources) Atrial flutter; Translations: [Unspecified atrial flutter] Onset: 02-23-2025 02-19-2025 Chronic Cardiac dysrhythmias (2 sources) Tachycardia; Translations: [Tachycardia, unspecified] 04-23-2025 Episodic Cardiac dysrhythmias (2 sources) Cardiac dysrhythmias Chronic obstructive pulmonary disease and bronchiectasis (20 sources) Chronic obstructive pulmonary disease, unspecified; Translations: [Chronic obstructive lung disease] Onset: 02-03-2010 Resolved: 10-13-2019 Chronic Coma; stupor; and brain damage (2 sources) Daytime somnolence; Translations: [Somnolence] Onset: 03-10-2025 03-10-2025 Episodic Congestive heart failure; nonhypertensive (4 sources) Congestive heart failure; Translations: [Heart failure, unspecified] Onset: 03-01-2025 03-01-2025 Chronic Disorders of lipid metabolism (20 sources) Dyslipidemia; Translations: [Hyperlipidemia, unspecified] Onset: 01-30-2022 Chronic Essential hypertension (20 sources) Essential (primary) hypertension; Translations: [Essential hypertension] Onset: 07-07-2008 Resolved: 07-07-2008 Chronic Gout and other crystal arthropathies (1 source) Gouty arthritis of toe; Translations: [Gout, unspecified] 01-10-2021 Chronic Immunizations and screening for infectious disease (3 sources) Needs influenza immunization; Translations: [Encounter for immunization] Episodic Mycoses (2 sources) Candidal intertrigo; Translations: [Candidiasis of skin and nail] Onset: 04-20-2025 04-20-2025 Episodic Nutritional deficiencies (20 sources) Vitamin D deficiency; Translations: [Vitamin D deficiency, unspecified] Onset: 01-30-2022 Chronic Other aftercare (1 source) Post-discharge follow-up; Translations: [Encounter for follow-up examination after completed treatment for conditions other than malignant neoplasm] 03-01-2025 Episodic Other aftercare (1 source) Encounter for follow-up examination after completed treatment for conditions other than malignant neoplasm; Translations: [Hospital discharge follow-up] Onset: 03-01-2025 Episodic Other gastrointestinal disorders (20 sources) Irritable bowel syndrome; Translations: [Irritable bowel syndrome without diarrhea] Onset: 08-13-2008 05-13-2009 Chronic Other hematologic conditions (4 sources) Splenic cyst; Translations: [Cyst of spleen] Episodic Other lower respiratory disease (6 sources) Dyspnea; Translations: [Dyspnea, unspecified] Episodic Other lower respiratory disease (6 sources) Multiple nodules of lung; Translations: [Other nonspecific abnormal finding of lung field] 12-26-2023 Episodic Other lower respiratory disease (4 sources) Dyspnea on exertion; Translations: [Other forms of dyspnea] 02-19-2025 Episodic Other lower respiratory disease (2 sources) Other forms of dyspnea; Translations: [Other forms of dyspnea] Onset: 02-23-2025 Episodic Other lower respiratory disease (1 source) Shortness of breath; Translations: [Shortness of breath] Onset: 02-23-2025 Episodic Other nutritional; endocrine; and metabolic disorders (1 source) Morbid (severe) obesity due to excess calories; Translations: [Morbid (severe) obesity due to excess calories] Onset: 03-28-2017 Chronic Other nutritional; endocrine; and metabolic disorders (20 sources) Body mass index 40+ - severely obese; Translations: [Morbid (severe) obesity due to excess calories] Onset: 03-28-2017 03-28-2017 Chronic Other nutritional; endocrine; and metabolic disorders (2 sources) Morbid obesity; Translations: [Morbid (severe) obesity due to excess calories] 06-13-2023 Chronic Other screening for suspected conditions (not mental disorders or infectious disease) (20 sources) Encounter for screening for malignant neoplasm of colon; Translations: [Patient encounter status] Onset: 08-27-2018 Resolved: 10-13-2019 Episodic Other skin disorders (1 source) Eruption; Translations: [Rash and other nonspecific skin eruption] 08-14-2023 Episodic Other upper respiratory infections (2 sources) Bacterial sinusitis; Translations: [Chronic sinusitis, unspecified] Chronic Otitis media and related conditions (1 source) Acute left otitis media; Translations: [Otitis media, unspecified, left ear] 03-13-2024 Episodic Residual codes; unclassified (2 sources) Obstructive sleep apnea (adult) (pediatric); Translations: [Obstructive sleep apnea (adult) (pediatric)] Onset: 05-12-2013 Chronic Residual codes; unclassified (20 sources) Obstructive sleep apnea syndrome; Translations: [Obstructive sleep apnea (adult) (pediatric)] 10-23-2021 Chronic Residual codes; unclassified (1 source) Hypersomnia; Translations: [Hypersomnia, unspecified] 04-23-2025 Chronic Residual codes; unclassified (1 source) Confusional state; Translations: [Disorientation, unspecified] 04-20-2025 Episodic Residual codes; unclassified (1 source) Disorientation, unspecified; Translations: [Confusion] Onset: 04-20-2025 Episodic Residual codes; unclassified (1 source) Acute confusion; Translations: [Disorientation, unspecified] 04-23-2025 Episodic Respiratory failure; insufficiency; arrest (adult) (20 sources) Dependence on supplemental oxygen; Translations: [Dependence on supplemental oxygen] Onset: 05-06-2017 05-06-2017 Chronic Screening and history of mental health and substance abuse codes (20 sources) Ex-smoker; Translations: [Personal history of nicotine dependence] Onset: 12-25-2024 10-05-2011 Episodic Skin and subcutaneous tissue infections (4 sources) Infection of skin; Translations: [Local infection of the skin and subcutaneous tissue, unspecified] 01-29-2024 Episodic Unclassified (2 sources) see to establish care for lung disease as seen per CT Unclassified (1 source) I48.92 - Unspecified atrial flutter Urinary tract infections (2 sources) Acute cystitis; Translations: [Acute cystitis with hematuria] Onset: 04-20-2025 04-20-2025 Episodic Viral infection (2 sources) Disease caused by 2019-nCoV; Translations: [COVID-19] Episodic Past or Other Problems Problem Classification Problem Date Documented Da te Episodic/Chronic Abdominal pain (20 sources) Abdominal pain; Translations: [Unspecified abdominal pain] Onset: 08-13-2008 Resolved: 10-13-2019 10-13-2019 Episodic Conditions associated with dizziness or vertigo (20 sources) Lightheadedness; Translations: [Dizziness and giddiness] Onset: 01-30-2022 Episodic Diabetes mellitus without complication (20 sources) Impaired fasting glycemia; Translations: [Impaired fasting glucose] Onset: 11-06-2017 Episodic Malaise and fatigue (20 sources) Fatigue; Translations: [Other fatigue] Onset: 03-13-2024 08-14-2023 Episodic Other connective tissue disease (20 sources) Plantar fascial fibromatosis; Translations: [Plantar fascial fibromatosis] Onset: 05-04-2006 Resolved: 08-19-2006 08-19-2006 Episodic Other inflammatory condition of skin (20 sources) Intertrigo; Translations: [Erythema intertrigo] Onset: 05-01-2022 05-01-2022 Episodic Other inflammatory condition of skin (1 source) Erythematous condition, unspecified; Translations: [Erythematous condition, unspecified] Onset: 06-02-2024 Episodic Other lower respiratory disease (20 sources) Hypoxemia; Translations: [Hypoxemia] Onset: 02-03-2010 02-03-2010 Episodic Other nutritional; endocrine; and metabolic disorders (20 sources) Obesity; Translations: [Obesity, unspecified] Onset: 05-04-2006 Resolved: 10-13-2019 10-13-2019 Chronic Other skin disorders (20 sources) Actinic keratosis; Translations: [Actinic keratosis] Onset: 05-19-2019 05-19-2019 Episodic Other skin disorders (13 sources) Loss of hair; Translations: [Nonscarring hair loss, unspecified] Onset: 01-20-2025 01-20-2025 Episodic Other skin disorders (1 source) Nonscarring hair loss, unspecified; Translations: [Hair thinning] Onset: 01-20-2025 Episodic Substance-related disorders (20 sources) Tobacco user; Translations: [Nicotine dependence, unspecified, uncomplicated] Resolved: 10-05-2011 10-05-2011 Chronic Results Test Name Value Interpretation Reference Range Facility Bacteria Ur Culton 5 Bacteria identified Cx Nom (U) ORGANISM ID: 1 10,000 -<50,000 CFU/ml Mixed microbiota No further workup. Mixed microbiota can be due to???urine???contamination with skin bacteria at time of collection or presence of a long-term urinary catheter. If a new culture is needed, please consider re-education of the patient on proper midstream co llection technique or straight catheterization for???urine???collection. Normal [facility] Comment on above: Performed By: #### 3 024-7, 3051-0, 29421-7, 3016-3 #### [facility] CLIA [id number] [address] [place] [address] [place] CNOVon 04-20-2025 CNOV Office Visit (UCWSTR ) LISA LUCERO ([id number]) 1955 F Date Time Provider Department 04/20/25 9:45 AM DAMON [facility] During your visit today, we recorded the following information about you: Temperature Pulse Respiration Blood pressure 98.4 degrees 94/minute 18/minute 132/80 Weight 117 kg Damon Eugene APRN.CULTURE MANAGER 04/20/2025 10:23 AM Signed [facility] Subjective Lisa Lucero is a 69 year old female. Patient presents with: Skin Rashes: x 2 days mouth and nose thick mucous x 1 week HPI Increased Nasal and Urinary Mucus: - Chronic nasal mucus production, recently noted to be thicker. - Reports a basty sensation in the mouth. - Observes mucus when wiping after urination. - Denies taking any allergy medications. Confusion: - Onset of fuzzy headedness coincided with initiation of new medications in February, including Eliquis and metoprolol. - Symptoms have progressively worsened. - Has seen Janette Bautista twice, who focused on blood pressure management. Rash: - Noticed a rash in the fold of the back, described as yeasty. - Reports similar rashes on the breasts, questioning if they are hives. COPD: - Mild increase in coughing over the past few days, attributed to thicker mucus. - Denies pain with swallowing. Review of Systems Ears/Nose/Mouth/Throat: (+) nasal congestion, (+) dry mouth, (-) odynophagia Respiratory: (+) cough Genitourinary: (+) urinary mucus, (+) dysuria Skin: (+) intertriginous rash Neurological: (+) confusion Objective BP 132/80 Pulse 94 Temp 36.9 ?C (98.4 ?F) Resp 18 Wt 117 kg (257 lb 15 oz) SpO2 91% BMI 44.27 kg/m? Physical Exam General: No acute distress. HEENT: Ears without abnormalities; oropharynx without erythema or exudate. CV: Heart sounds normal. Resp: Lungs clear to auscultation, no wheezing. Skin: Erythematous rash in intertriginous areas, blanchable. {1. Acute cystitis with hematuria (N30.01) - Urinalysis shows bilirubin, ketones, hematuria, proteinuria, and urobilinogen; possible dehydration due to Lasix use. - Initiated Macrobid BID for 5 days; if urine culture is negative, medication can be discontinued. - Advised to increase fluid intake to prevent dehydration. 2. Candidal intertrigo (B37.2) - Erythematous, blanchable rash observed in the intertriginous area of the back, consistent with candidal intertrigo. - Prescribed Nystatin cream for topical application. 3. Confusion (R41.0) - Onset coincides with initiation of new medications, including Eliquis and metoprolol. - Oxygen saturation initially low, improved to 93% after supplemental oxygen; low oxygen levels may contribute to confusion. - Scheduled an expedited follow-up appointment with primary care this week for further evaluation. and Recording using COM DEV software for draft documentation of the visit was discussed with the patient/authorized life assurance representative; all questions welcomed and answered. Patient/authorized life assurance representative agreed to proceed MDM Procedures Brandan Chang LPN 04/20/2025 11:12 AM Signed Addended by: BRANDAN CHANG on: 04/20/2025 11:12 AM Modules accepted: Orders Allergies As of Date: 04/20/2025 Noted Allergy Reaction ALEVE (NAPROXEN) 05/31/2020 4 - Hives Comments: Hives, edema of hands within 1 hour of use Date Reviewed: 04/20/2025 Reviewed by: Lyla Schafer MA - Fully Assessed Reason for Visit: Skin Rashes [4234] Cmt: x 2 days mouth and nose thick mucous x 1 week Visit Diagnoses:Acute cystitis with hematuria [N30.01] Candidal intertrigo [B37.2] Confusion [R41.0] Order(s):nitrofurantoin monohydrate and macrocrystal (MACROBID) 100 mg capsuleTake 1 capsule by mouth two times a day for 5 days.Disp: 10 capsuleRfl: 0 UA DIP, URINE (POC) [[id number]] Order #: [id number]. #:[id number] nystatin (MYCOSTATIN) creamApply to affected area two times a day for 14 days.Disp: 30 gRfl: 0 BACTERIAL CULTURE, URINE [SQURCUL] Order #: [id number]. #:[id number] Prescriptions as of 04/20/2025 - nitrofurantoin monohydrate and macrocrystal (MACROBID) 100 mg capsule Take 1 capsule by mouth two times a day for 5 days. - nystatin (MYCOSTATIN) cream Apply to affected area two times a day for 14 days. - apixaban (ELIQUIS) 5 mg tab(s) Take 5 mg by mouth two times a day. - furosemide (LASIX) 40 mg tablet Take 40 mg by mouth two times a day. - metoprolol tartrate, short acting, (LOPRESSOR) 50 mg tablet Take 50 mg by mouth two times a day. - potassium chloride ER (KLOR-CON) 20 mEq tablet Take 20 mEq by mouth two times a day. - mecobalamin (B12 ACTIVE ORAL) Take 1,000 mcg by mouth once daily. - cinnamon bark (CINNAMON ORAL) Take by mouth once daily. - albuterol HFA (PROVENTIL HFA, VENTOLIN HFA) 90 mcg/actuation inhaler Inhale 2 Puffs as instructed every 6 hours as ne (more content not included)... Normal [facility] UA DIP, URINE (POC)on 2024 BILIRUBIN UA (POCT) Small Abnormal Negative [facility] CLARITY UA (POCT) Turbid [facility] COLOR UA (POCT) Dark yellow [facility] GLUCOSE UA (POCT) Negative Negative mg/dL [facility] Hemoglobin Ql (U) Moderate Abnormal Negative [facility] Interpretation and review of laboratory results Abnormal [facility] KETONE UA (POCT) Trace Negative mg/dL [facility] LEUKOCYTES UA (POCT) Negative Negative [facility] NITRITE UA (POCT) Negative Negative [facility] PH UA (POCT) 6 4.5 - 8.0 [facility] Protein Ql (U) 30 mg/dL Abnormal Negative [facility] SPECIFIC GRAVITY UA (POCT) 1.015 1.005 - 1.030 [facility] UROBILINOGEN UA (POCT) 2 Abnormal Normal E.U./dL [facility] Location:[facility], [address], [place], [address] [facility] POINT OF CARE [facility] CNOVon 03-31-2025 CNOV Office Visit (FAMPWS ) SCITZLISA Mata ([id number]) 1955 F Date Time Provider Department 03/31/25 1:00 PM JANETTE DAMON During your visit today, we recorded the following information about you: Pulse Respiration Blood pressure Weight 91/minute 18/minute 124/82 119.1 kg Janette Damon APRN.CULTURE MANAGER 03/31/2025 1:06 PM Signed 03/31/2025 Patient presents with: BP Check: Had appointment with cardiology yesterday; [facility] Dr. Elena Recording using COM DEV software for draft documentation of the visit was discussed with the patient/authorized life assurance representative; all questions welcomed and answered. Patient/authorized life assurance representative agreed to proceed SUBJECTIVE: This is a 69 year old that is here today for Above Complaints.. Atrial Flutter: - Recent consultation with Dr. Elena, who referred her to Dr. Marcos Santos, an comp field case manager, for potential ablation. - Dr. Elena indicated that the procedure could improve both cardiac function and respiratory status. Hypertension: - Home blood pressure readings have been consistent and well-controlled. - Recent readings include 120/[address] Elena' office and 124/82 mmHg today. - Recently discontinued amlodipine; blood pressure remains stable without it. Sleep Apnea: - Scheduled for a sleep study, but considering cancellation due to previous experience of inadequate sleep during the test and concerns about cost. - Last sleep study showed no occurrences of sleep apnea, but [place] questions the validity due to limited sleep duration (120 minutes). PAST MEDICAL HISTORY Diagnosis Date Atrial flutter (HCC) CHF (congestive heart failure) ([facility]) Chronic hypoxemic respiratory failure (HCC) COPD (chronic obstructive pulmonary disease) ([facility]) 02/03/2010 Coronary artery disease No NE, CHF. No heart cath. Diverticulosis of colon (without mention of hemorrhage) Essential hypertension, benign Fibrocystic breast Former smoker Internal hemorrhoids without mention of complication Leiomyoma of uterus, unspecified Obstructive sleep apnea Mild. Not prescribed CPAP, only 2L nasal O2. ALLERGIES Aleve [Naproxen] MEDICATIONS Current Outpatient Medications Medication Sig apixaban (ELIQUIS) 5 mg tab(s) Take 5 mg by mouth two times a day. furosemide (LASIX) 40 mg tablet Take 40 mg by mouth two times a day. metoprolol tartrate, short acting, (LOPRESSOR) 50 mg tablet Take 50 mg by mouth two times a day. potassium chloride ER (KLOR-CON) 20 mEq tablet Take 20 mEq by mouth two times a day. mecobalamin (B12 ACTIVE ORAL) Take 1,000 mcg by mouth once daily. cinnamon bark (CINNAMON ORAL) Take by mouth once daily. albuterol HFA (PROVENTIL HFA, VENTOLIN HFA) 90 mcg/actuation inhaler Inhale 2 Puffs as instructed every 6 hours as needed for wheezing/shortness of breath. shyiesrxpgv-mdntmelww-jtlsbpx r (TRELEGY ELLIPTA) 200-62.5-25 mcg inhalation powder Inhale 1 Puff as instructed once daily. triamcinolone acetonide (KENALOG) 0.5 % cream Apply 1 application to affected area two times a day as needed (foot rash, eczema). For rash/itching. Apply sparingly. Avoid face/skin fold. ipratropium-albuterol (DUONEB) 0.5 mg-3 mg(2.5 mg base)/3 mL nebu Inhale 3 mL as instructed four times daily. Inhale via nebulizer over 5-15 minutes. OXYGEN, HOME THERAPY, 3.5L at night and 6L with exertion COMPOUNDED PRESCRIPTION Please dispense nebulizer and supply kit, including tubing, mouth piece, and hose. Assoc diagnosis: J44.9. Dispense: 1 each, Refills: 99. ASCORBIC ACID/BIOFLAVONOIDS (SIVAN C ORAL) Take 1 capsule by mouth once daily. COMPOUNDED PRESCRIPTION 3.5L of O2 at night and 6L with exertion. multivitamin tablet Take 1 tablet by mouth once daily. No current facility-administered medications for this visit. Medications and allergies reviewed by this provider. SOCIAL HISTORY Social History Tobacco Use Smoking status: Former Current packs/day: 0.00 Average packs/day: 1 pack/day for 38.0 years (38.0 ttl pk-yrs) Types: Cigarettes Start date: 1971 Quit date: 12/20/2008 Years since quittin.2 Smokeless tobacco: Never Tobacco comments: Parents smoked in childhood home. Spouse smokes, not in home. Vaping Use Vaping status: Never Used Substance Use Topics Alcohol use: Yes Alcohol/week: 6.0 - 12.0 standard drinks of alcohol Types: 6 - 12 Cans of Beer (12oz) per week Drug use: No REVIEW OF SYSTEMS All other reviewed and negative other than HPI. OBJECTIVE: BP 124/82 Pulse 91 Resp 18 Wt 119.1 kg (262 lb 9.6 oz) SpO2 92% BMI 45.08 kg/m? . Vital signs reviewed by this provider. APPEARANCE Well appearing, alert, in no acute distress, well-hydrated, well nourished. Bone Density Screening Never done BP Controlled (<130/80) due on 01/30/2023 Covid-19 Vaccine( season) due on 06/28/2024 Advance Directive Discussion Nev (more content not included)... Normal [facility] Cardiology Visit Reporton Cardiology Visit Report [facility] [address] [place] [address] OFFICE VISIT Date of Service: 03/30/25 MR#: [id number] Acct: [id number] Name: LISA LUCERO Rep #: [id number] : 1955 Provider: Dr. Bryan osei MD Age/Sex: 69/F [place] [facility] [place] Status: Signed HPI HPI History of Present Illness Details: Patient comes today as a new patient visit. She is a pleasant 69-year-old white female who here for new onset atrial flutter. Patient was evaluated emergency department at [facility] February 19, 2025. She had been noticing increasing lower extremity edema over the last couple of months that it first was episodic and seem to be more deep in edema but then was persistent for the last several weeks. On presentation her ECG showed atrial flutter with variable AV conduction some PVCs a rightward axis and a heart rate of 98 bpm. The patient was admitted she was placed on diuretic therapy and echocardiogram performed showed an EF of 45 to 50%. An echo done at the [facility] had an EF of 60% from 2022. The patient had normal RV size moderate right global LV systolic dysfunction mild biatrial dilation 2+ eccentric mitral regurgitation mild tricuspid regurg regurgitation RV systolic pressure estimated at 53 mmHg there was aortic sclerosis with no stenosis. The patient reports she or her shortness of breath is somewhat improved but his still persistent. She is on home oxygen therapy and has been on such for several years. The patient has a documentation of obstructive sleep apnea she is not on CPAP but is on 24/7 oxygen. She reports that when she did the sleep study she only slept for 2 hours and was diagnosed with sleep apnea. The patient also has a history of hypertension which is well-controlled she has a history of hyperlipidemia with LDL of 100 January 2025. She does drink alcohol about 4???5 mixed drinks a day. And she has COPD requiring home oxygen therapy. ECG done in our office today shows atrial flutter with a sawtooth pattern in the inferior leads and 3-1 versus 4-1 variable AV conduction heart rate estimated 80 bpm. She has low voltage in the anterior leads and poor R wave progression consistent with her body habitus. The patient denies any syncope or near syncope she denies any chest pains tightness or squeezing. She does report that her edema has markedly improved now that she is on chronic diuretic therapy. She is not aware of any fluttering or palpitations. Intake Vital Signs 02/22/25 10:02 03/30/25 11:28 Height 5 ft 4 in 5 ft 4 in Weight: 263 lb BMI 45.1 BP 122/80 H Blood Pressure Location Lt brachial Position Sitting Respiration 18 Pulse 69 Pulse Source Monitor Pulse Oximetry (%) 86 Oxygen Delivery Method nasal canula Oxygen Flow Rate (L/min) 2 Intake Visit Reasons: S/P [facility] 02/23 (AF) Hand Hose Cutter Required: No Accompanied by: Self Is patient in pain?: No Allergies ibuprofen (From Advil) Allergy (Mild, Verified 03/30/25 11:29) Hives Medications ???Medication ???Instructions ???Recorded ???Confirmed ???Type Oxygen, Home [Home Oxygen] 2 - 4 lpm QHS 11/13/17 03/30/25 Hi story albuterol sulfate 90 mcg/actuation 2 inh inhalation Q6H PRN shortne ss 02/19/25 03/30/25 History breath activated powder inhaler of breath fluticasone fur. 200 mcg-umeclid 1 ea inhalation DAILY 02/19/2501/19 History 62.5 mcg-vilant 25 mcg inhalat.powder (Trelegy Ellipta) guaifenesin 1,200 mg tablet, 1,200 mg PO BID PRN cough 02/19/25 03/30/25 History extended release 12 hr (Mucus Relief ER) ipratropium 0.5 mg-albuterol 3 mg 3 ml inhalation Q6H PRN shortness 02/19/25 03/30/25 History (2.5 mg base)/3 mL nebulization of breath soln multivitamin (Daily Multi-Vitamin 1 tab PO DAILY 02/19/25 03/30/25 History tablet) sodium chloride 0.65 % nasal spray 1 spray intranasal BID PRN dry 0 02/19/25 03/30/25 History aerosol (Oxford Saline) nasal passages triamcinolone acetonide 0.5 % 1 applic topical BID PRN itching 0 02/19/25 03/30/25 History topical cream apixaban 5 mg tablet (Eliquis) 5 mg PO BID #60 tabs 02/23/2501/19 Rx furosemide 40 mg tablet 40 mg PO BID #60 tabs 02/23/2501/19 Rx metoprolol tartrate 50 mg tablet 50 mg PO BID #60 tabs 02/23/2501/19 Rx potassium chloride 20 mEq 20 meq PO BID #60 tabs 02/23/25 Rx tablet,extended release(part/cryst) (Klor-Con M) ascorbic acid (vitamin C) 500 mg 500 mg PO DAILY PRN 03/30/2503/30 History capsule cinnamon bark 500 mg capsule 500 mg PO QDAY 03/30/25 03/30/25 H istory (Cinnamon) mecobalamin (vitamin B12) 1,000 1,000 mcg PO QDAY 03/30/25 5 History mcg chewable tablet Ejection fraction %: 47 Have you fallen in (more content not included)... [facility] CNOVon 03-10-2025 CNOV Office Visit (PULMWS ) LISA LUCERO ([id number]) 1955 F Date Time Provider Department 03/10/25 1:00 PM LISA GOODMAN During your visit today, we recorded the following information about you: MarcialLisa APRN.ELVIA 03/10/2025 1:47 PM Signed Pulmonary Medicine Patients name: Lisa Palumbo PCP: Phuc Martines DO CC: concern for ROXY HPI: Lisa Lucero is a 69 year old female former [id number] smoker, quitting in 2008 with PMH significant for morbid obesity, severe COPD, chronic hypoxemic respiratory failure, CAD, HTN, and ROXY. Current therapy consists of Trelegy Ellipta with as needed albuterol/Duoneb. On supplemental O2. She presents today d/t concerns for ROXY while hospitalized. ABRAHAM 11/2024 with worsening exertional dyspnea. Had been wearing 3.5L O2 with exertion despite previous testing showing need for 6L. Trelegy dose was increased at that time. She was just hospitalized at [facility] 02/19 - 02/23 for SOB/leg swelling in the setting of Aflutter. Worsening hypoxia from baseline. CTA negative for PE. Echo with EF 40-50%. She was able to be weaned back to baseline O2 by discharge. Seen by primary care following discharge on 03/01, concern for ROXY d/t her weight. She reports she had PSG years ago but did not sleep more than 2 hours during testing. Reportedly, there were no apnea events during the recorded time. Overall, she reports today that shortness of breath has improved. She believes the increase in her Trelegy dose was helpful but improved more following her hospitalization and being on diuretics. Denies cough, wheezing, or chest tightness. Uses Albuterol/Duoneb few days a week. DME: Bruce 3.5 L at rest/nocturnal and 6L with activity STOP BANG Questionnaire 1. Snoring Do you snore loudly (louder than talking or loud enough to be heard through closed doors)? NO 2. Tired Do you often feel tired, fatigued, or sleepy during daytime? YES 3. Observed Has anyone observed you stop breathing during your sleep? NO 4. Blood Pressure Do you have or are you being treated for high blood pressure? YES 5. BMI BMI more than 35 kg/m2? YES 6. Age Age over 50 yr old? YES 7. Neck circumference Neck circumference greater than 40 cm? NO 8. Gender Gender male? NO * Neck circumference is measured by staff High risk of ROXY: answering yes to three or more items Low risk of ROXY: answering yes to less than three items PAST MEDICAL HISTORY Diagnosis Date Atrial flutter (HCC) CHF (congestive heart failure) ([facility]) Chronic hypoxemic respiratory failure (HCC) COPD (chronic obstructive pulmonary disease) ([facility]) 02/03/2010 Coronary artery disease No NE, CHF. No heart cath. Diverticulosis of colon (without mention of hemorrhage) Essential hypertension, benign Fibrocystic breast Former smoker Internal hemorrhoids without mention of complication Leiomyoma of uterus, unspecified Obstructive sleep apnea Mild. Not prescribed CPAP, only 2L nasal O2. Allergies: Aleve [Naproxen] Hives Comment:Hives, edema of hands within 1 hour of use Medication List Accurate as of March 09, 2025 8:56 PM. If you have any questions, ask your nurse or doctor. CONTINUE taking these medications albuterol HFA 90 mcg/actuation inhaler Commonly known as: PROVENTIL HFA, VENTOLIN HFA Inhale 2 Puffs as instructed every 6 hours as needed for wheezing/shortness of breath. amLODIPine 10 mg tablet Commonly known as: NORVASC Take 1 tablet by mouth once daily. apixaban 5 mg tab(s) Commonly known as: ELIQUIS B12 ACTIVE ORAL CINNAMON ORAL COMPOUNDED PRESCRIPTION COMPOUNDED PRESCRIPTION Please dispense nebulizer and supply kit, including tubing, mouth piece, and hose. Assoc diagnosis: J44.9. Dispense: 1 each, Refills: 99. SIVAN C ORAL furosemide 40 mg tablet Commonly known as: LASIX ipratropium-albuterol 0.5 mg-3 mg(2.5 mg base)/3 mL Nebu Commonly known as: DUONEB Inhale 3 mL as instructed four times daily. Inhale via nebulizer over 5-15 minutes. metoprolol tartrate (short acting) 50 mg tablet Commonly known as: LOPRESSOR multivitamin tablet OXYGEN (HOME THERAPY) 3.5L at night and 6L with exertion potassium chloride ER 20 mEq tablet Commonly known as: KLOR-CON TRELEGY ELLIPTA 200-62.5-25 mcg inhalation powder Generic drug: pkrbmnrjyqh-fwyamyjvq-zkwcjvj r Inhale 1 Puff as instructed once daily. triamcinolone acetonide 0.5 % cream Commonly known as: KeNALog Apply 1 application to affected area two times a day as needed (foot rash, eczema). For rash/itching. Apply sparingly. Avoid face/skin fold. DATA: I personally reviewed and analyzed all labs, radiographs and available pulmonary function testing PFT: 02/2022 Spirometry indicates very severe obstruction. CT Chest: 01/25/25 IMPRESSION: LungRADS category: 3 LungR (more content not included)... Normal [facility] Basic Metabolic Profile (BMP )on 03-02-2025 BUN Normal -19 [facility] Comment on above: Result Comment: Canc elled via OM: Order cancelled - Patient discharged Performed By: #### L 500.2500, L100.0100 #### [facility] [address] [place], [address] BUN/CRE Normal 10-20 [facility] Comment on above: Result Comment: Canc elled via OM: Order cancelled - Patient discharged Performed By: #### L 500.2500, L100.0100 #### [facility] [address] [facility] [address] Calcium Normal 7.6-11.0 [facility] Comment on above: Result Comment: Canc elled via OM: Order cancelled - Patient discharged Performed By: #### L 500.2500, L100.0100 #### [facility] [address] [place], [address] CL Normal 98-108 [facility] Comment on above: Result Comment: Canc elled via OM: Order cancelled - Patient discharged Performed By: #### L 500.2500, L100.0100 #### [facility] [address] [place], [address] CO2 Normal 21.0-32.0 [facility] Comment on above: Result Comment: Canc elled via OM: Order cancelled - Patient discharged Performed By: #### L 500.2500, L100.0100 #### [facility] [address] [place], [address] CREAT,SERUM Normal 0.70-1.20 [facility] Comment on above: Result Comment: Canc elled via OM: Order cancelled - Patient discharged Performed By: #### L 500.2500, L100.0100 #### [facility] [address] [place], [address] eGFR Normal >60 [facility] Comment on above: Result Comment: Canc elled via OM: Order cancelled - Patient discharged Performed By: #### L 500.2500, L100.0100 #### [facility] [address] [place], [address] GAP Normal 5-15 [facility] Comment on above: Result Comment: Canc elled via OM: Order cancelled - Patient discharged Performed By: #### L 500.2500, L100.0100 #### [facility] [address] [place], [address] GLU Normal 70-99 [facility] Comment on above: Result Comment: Canc elled via OM: Order cancelled - Patient discharged Performed By: #### L 500.2500, L100.0100 #### [facility] [address] [place], [address] Potassium Normal 3.3-5.1 [facility] Comment on above: Result Comment: Canc elled via OM: Order cancelled - Patient discharged Performed By: #### L 500.2500, L100.0100 #### [facility] [address] [place], [address] Basic Metabolic Profile (BMP) Normal 133-145 [facility] Comment on above: Result Comment: Canc elled via OM: Order cancelled - Patient discharged Performed By: #### L 500.2500, L100.0100 #### [facility] [address] [place], [address] CBC W/Diff, Automatedon 05-0 -2024 Absolute Neut Normal 2.0-7.7 [facility] Comment on above: Result Comment: Canc elled via OM: Order cancelled - Patient discharged Performed By: #### L 500.2500, L100.0100 #### [facility] [address] [place], [address] HCT Normal 37-47 [facility] Comment on above: Result Comment: Canc elled via OM: Order cancelled - Patient discharged Performed By: #### L 500.2500, L100.0100 #### [facility] [address] [place], [address] HGB Normal 12.0-15.0 [facility] Comment on above: Result Comment: Canc elled via OM: Order cancelled - Patient discharged Performed By: #### L 500.2500, L100.0100 #### [facility] [address] [place], [address] MCH Normal 27.0-32.0 [facility] Comment on above: Result Comment: Canc elled via OM: Order cancelled - Patient discharged Performed By: #### L 500.2500, L100.0100 #### [facility] [address] [place], [address] MCHC Normal 32-36 [facility] Comment on above: Result Comment: Canc elled via OM: Order cancelled - Patient discharged Performed By: #### L 500.2500, L100.0100 #### [facility] [address] [place], [address] MCV Normal 81-99 [facility] Comment on above: Result Comment: Canc elled via OM: Order cancelled - Patient discharged Performed By: #### L 500.2500, L100.0100 #### [facility] [address] [place], [address] NEUT% Normal 47-70 [facility] Comment on above: Result Comment: Canc elled via OM: Order cancelled - Patient discharged Performed By: #### L 500.2500, L100.0100 #### [facility] [address] [place], [address] PLT Normal 150-450 [facility] Comment on above: Result Comment: Canc elled via OM: Order cancelled - Patient discharged Performed By: #### L 500.2500, L100.0100 #### [facility] [address] [place], [address] RBC Normal 4.2-5.4 [facility] Comment on above: Result Comment: Canc elled via OM: Order cancelled - Patient discharged Performed By: #### L 500.2500, L100.0100 #### [facility] [address] [place], [address] RDW CV Normal 11.6-14.6 [facility] Comment on above: Result Comment: Canc elled via OM: Order cancelled - Patient discharged Performed By: #### L 500.2500, L100.0100 #### [facility] [address] [place], [address] RDW SD Normal 35.1-43.9 [facility] Comment on above: Result Comment: Canc elled via OM: Order cancelled - Patient discharged Performed By: #### L 500.2500, L100.0100 #### [facility] [address] [place], [address] WBC Normal 4.4-11.0 [facility] Comment on above: Result Comment: Canc elled via OM: Order cancelled - Patient discharged Performed By: #### L 500.2500, L100.0100 #### [facility] [address] [place], [address] Basic Metabolic Profile (BMP )on 03-01-2025 BUN Normal 4-19 [facility] Comment on above: Result Comment: Canc elled via OM: Order cancelled - Patient discharged Performed By: #### L 500.2500, L100.0100 #### [facility] [address] [place], [address] BUN/CRE Normal 10-20 [facility] Comment on above: Result Comment: Canc elled via OM: Order cancelled - Patient discharged Performed By: #### L 500.2500, L100.0100 #### [facility] [address] [place], [address] Calcium Normal 7.6-11.0 [facility] Comment on above: Result Comment: Canc elled via OM: Order cancelled - Patient discharged Performed By: #### L 500.2500, L100.0100 #### [facility] [address] [place], [address] CL Normal 98-108 [facility] Comment on above: Result Comment: Canc elled via OM: Order cancelled - Patient discharged Performed By: #### L 500.2500, L100.0100 #### [facility] [address] [place], [address] CO2 Normal 21.0-32.0 [facility] Comment on above: Result Comment: Canc elled via OM: Order cancelled - Patient discharged Performed By: #### L 500.2500, L100.0100 #### [facility] [address] [place], [address] CREAT,SERUM Normal 0.70-1.20 [facility] Comment on above: Result Comment: Canc elled via OM: Order cancelled - Patient discharged Performed By: #### L 500.2500, L100.0100 #### [facility] [address] [place], [address] eGFR Normal >60 [facility] Comment on above: Result Comment: Canc elled via OM: Order cancelled - Patient discharged Performed By: #### L 500.2500, L100.0100 #### [facility] [address] [place], [address] GAP Normal 5-15 [facility] Comment on above: Result Comment: Canc elled via OM: Order cancelled - Patient discharged Performed By: #### L 500.2500, L100.0100 #### [facility] [address] [place], [address] GLU Normal 70-99 [facility] Comment on above: Result Comment: Canc elled via OM: Order cancelled - Patient discharged Performed By: #### L 500.2500, L100.0100 #### [facility] [address] [place], [address] Potassium Normal 3.3-5.1 [facility] Comment on above: Result Comment: Canc elled via OM: Order cancelled - Patient discharged Performed By: #### L 500.2500, L100.0100 #### [facility] [address] [place], [address] Basic Metabolic Profile (BMP) Normal 133-145 [facility] Comment on above: Result Comment: Canc elled via OM: Order cancelled - Patient discharged Performed By: #### L 500.2500, L100.0100 #### [facility] [address] [place], [address] CBC W/Diff, Automatedon 05-0 5-2024 Absolute Neut Normal 2.0-7.7 [facility] Comment on above: Result Comment: Canc elled via OM: Order cancelled - Patient discharged Performed By: #### L 500.2500, L100.0100 #### [facility] [address] [place], [address] HCT Normal 37-47 [facility] Comment on above: Result Comment: Canc elled via OM: Order cancelled - Patient discharged Performed By: #### L 500.2500, L100.0100 #### [facility] [address] [place], [address] HGB Normal 12.0-15.0 [facility] Comment on above: Result Comment: Canc elled via OM: Order cancelled - Patient discharged Performed By: #### L 500.2500, L100.0100 #### [facility] [address] [place], [address] MCH Normal 27.0-32.0 [facility] Comment on above: Result Comment: Canc elled via OM: Order cancelled - Patient discharged Performed By: #### L 500.2500, L100.0100 #### [facility] [address] [place], [address] MCHC Normal 32-36 [facility] Comment on above: Result Comment: Canc elled via OM: Order cancelled - Patient discharged Performed By: #### L 500.2500, L100.0100 #### [facility] [address] [place], [address] MCV Normal 81-99 [facility] Comment on above: Result Comment: Canc elled via OM: Order cancelled - Patient discharged Performed By: #### L 500.2500, L100.0100 #### [facility] [address] [place], [address] NEUT% Normal 47-70 [facility] Comment on above: Result Comment: Canc elled via OM: Order cancelled - Patient discharged Performed By: #### L 500.2500, L100.0100 #### [facility] [address] [place], [address] PLT Normal 150-450 [facility] Comment on above: Result Comment: Canc elled via OM: Order cancelled - Patient discharged Performed By: #### L 500.2500, L100.0100 #### [facility] [address] [place], [address] RBC Normal 4.2-5.4 [facility] Comment on above: Result Comment: Canc elled via OM: Order cancelled - Patient discharged Performed By: #### L 500.2500, L100.0100 #### [facility] [address] [place], [address] RDW CV Normal 11.6-14.6 [facility] Comment on above: Result Comment: Canc elled via OM: Order cancelled - Patient discharged Performed By: #### L 500.2500, L100.0100 #### [facility] [address] [place], [address] RDW SD Normal 35.1-43.9 [facility] Comment on above: Result Comment: Canc elled via OM: Order cancelled - Patient discharged Performed By: #### L 500.2500, L100.0100 #### [facility] [address] [place], [address] WBC Normal 4.4-11.0 [facility] Comment on above: Result Comment: Canc elled via OM: Order cancelled - Patient discharged Performed By: #### L 500.2500, L100.0100 #### [facility] [address] [place], [address] CNOVon 03-01-2025 CNOV [facility] LISA LUCERO ([id number]) 1955 F Date Time Provider Department 03/01/25 12:20 PM JANETTE DAMON During your visit today, we recorded the following information about you: Pulse Respiration Blood pressure Weight 76/minute 18/minute 116/70 118.9 kg Janette Damon APRN.CNP 03/01/2025 2:15 PM Signed 02/26/2025 Patient presents with: Hospital F/U: [facility] COPD SUBJECTIVE: This is a 69 year old that is here today for Above Complaints. HOSPITAL/ER FOLLOW UP: Reason for visit: SOB, and leg swelling Which facility: [facility] Date of visit: 02/19/2025-02/23/2025 Diagnosis: COPD, atrial flutter and hypoxia Testing done: CXR, EKG, ECHO, CTA lungs Treatment given: breathing treatments, oxygen Doing well since discharge.Per patient she has not been taking her amlodipine. Per patient she was feeling pretty lethargic and that's why she stopped the amlodipine . She has been taking her BP at home with ranges of 122-140/65-82. Does not have follow-up with cardiology as yet. Was wanting to stay within [facility] system. Denies dyspnea, orthopnea wheezing, chest pain, palpitations or leg swelling. Follows with [facility]. Last appointment on 12/25/2024. Uses 3/4L/NC at rest and 6 L/NC with exertion. She feels her breathing as at her baseline. ER records reviewed PAST MEDICAL HISTORY Diagnosis Date Chronic hypoxemic respiratory failure (HCC) COPD (chronic obstructive pulmonary disease) (HCC) 02/03/2010 Coronary artery disease No NE, CHF. No heart cath. Diverticulosis of colon (without mention of hemorrhage) Essential hypertension, benign Fibrocystic breast Former smoker Internal hemorrhoids without mention of complication Leiomyoma of uterus, unspecified Obstructive sleep apnea Mild. Not prescribed CPAP, only 2L nasal O2. ALLERGIES Aleve [Naproxen] MEDICATIONS Current Outpatient Medications Medication Sig albuterol HFA (PROVENTIL HFA, VENTOLIN HFA) 90 mcg/actuation inhaler Inhale 2 Puffs as instructed every 6 hours as needed for wheezing/shortness of breath. fiqlqbfadxn-nxnufxjex-kzvynbs r (TRELEGY ELLIPTA) 200-62.5-25 mcg inhalation powder Inhale 1 Puff as instructed once daily. triamterene-hydroCHLOROthiazi de (DYAZIDE) 37.5-25 mg per capsule Take 1 capsule by mouth once daily. amLODIPine (NORVASC) 10 mg tablet Take 1 tablet by mouth once daily. triamcinolone acetonide (KENALOG) 0.5 % cream Apply 1 application to affected area two times a day as needed (foot rash, eczema). For rash/itching. Apply sparingly. Avoid face/skin fold. ipratropium-albuterol (DUONEB) 0.5 mg-3 mg(2.5 mg base)/3 mL nebu Inhale 3 mL as instructed four times daily. Inhale via nebulizer over 5-15 minutes. OXYGEN, HOME THERAPY, 3.5L at night and 6L with exertion COMPOUNDED PRESCRIPTION Please dispense nebulizer and supply kit, including tubing, mouth piece, and hose. Assoc diagnosis: J44.9. Dispense: 1 each, Refills: 99. ASCORBIC ACID/BIOFLAVONOIDS (SIVAN C ORAL) Take 1 capsule by mouth once daily. COMPOUNDED PRESCRIPTION 3.5L of O2 at night and 6L with exertion. multivitamin tablet Take 1 tablet by mouth once daily. No current facility-administered medications for this visit. Medications and allergies reviewed by this provider. SOCIAL HISTORY Social History Tobacco Use Smoking status: Former Current packs/day: 0.00 Average packs/day: 1 pack/day for 38.0 years (38.0 ttl pk-yrs) Types: Cigarettes Start date: 1971 Quit date: 12/20/2008 Years since quittin.1 Smokeless tobacco: Never Tobacco comments: Parents smoked in childhood home. Spouse smokes, not in home. Vaping Use Vaping status: Never Used Substance Use Topics Alcohol use: Yes Alcohol/week: 6.0 - 12.0 standard drinks of alcohol Types: 6 - 12 Cans of Beer (12oz) per week Drug use: No REVIEW OF SYSTEMS All other reviewed and negative other than HPI. OBJECTIVE: BP 116/70 Pulse 76 Resp 18 Wt 118.9 kg (262 lb 3.2 oz) SpO2 90% BMI 45.01 kg/m? . Vital signs reviewed by this provider. APPEARANCE Well appearing, alert, in no acute distress, well-hydrated, well nourished. EYES PERRLA, conjunctiva and sclera normal. HEART RRR with normal S1 and S2, no murmurs, no gallops, no JVD appreciated LUNG Diminished throughout. No wheezes, rhonchi or rales. O2 intact via nasal cannula. Able to speak in full sentences without difficulty EXTREMITIES Extremities normal, No deformities, No skin discoloration, No edema, and Normal pulses bilaterally. SKIN Skin color, texture, turgor normal, no suspicious rashes or lesions to exposed skin Bone Density Screening Never done Covid-19 Vaccine(2023-) due on 06/28/2024 Advance Directive Discussion Never done Depression Screening due on 03/13/2025 Anxiety Screening due on 03/13/2025 DTaP,Tdap,Td Vaccine(3 - Td or Tdap) due on 11/09/2025 M (more content not included)... Normal [facility] Basic Metabolic Profile (BMP )on 02-28-2025 BUN Normal 4-19 [facility] Comment on above: Result Comment: Canc elled via OM: Order cancelled - Patient discharged Performed By: #### L 500.2500, L100.0100 #### [facility] [address] [place], [address] BUN/CRE Normal 10-20 [facility] Comment on above: Result Comment: Canc elled via OM: Order cancelled - Patient discharged Performed By: #### L 500.2500, L100.0100 #### [facility] [address] [place], [address] Calcium Normal 7.6-11.0 [facility] Comment on above: Result Comment: Canc elled via OM: Order cancelled - Patient discharged Performed By: #### L 500.2500, L100.0100 #### [facility] [address] [place], [address] CL Normal 98-108 [facility] Comment on above: Result Comment: Canc elled via OM: Order cancelled - Patient discharged Performed By: #### L 500.2500, L100.0100 #### [facility] [address] [place], [address] CO2 Normal 21.0-32.0 [facility] Comment on above: Result Comment: Canc elled via OM: Order cancelled - Patient discharged Performed By: #### L 500.2500, L100.0100 #### [facility] [address] [place], [address] CREAT,SERUM Normal 0.70-1.20 [facility] Comment on above: Result Comment: Canc elled via OM: Order cancelled - Patient discharged Performed By: #### L 500.2500, L100.0100 #### [facility] [address] [place], [address] eGFR Normal >60 [facility] Comment on above: Result Comment: Canc elled via OM: Order cancelled - Patient discharged Performed By: #### L 500.2500, L100.0100 #### [facility] [address] [place], [address] GAP Normal 5-15 [facility] Comment on above: Result Comment: Canc elled via OM: Order cancelled - Patient discharged Performed By: #### L 500.2500, L100.0100 #### [facility] [address] [place], [address] GLU Normal 70-99 [facility] Comment on above: Result Comment: Canc elled via OM: Order cancelled - Patient discharged Performed By: #### L 500.2500, L100.0100 #### [facility] [address] [place], [address] Potassium Normal 3.3-5.1 [facility] Comment on above: Result Comment: Canc elled via OM: Order cancelled - Patient discharged Performed By: #### L 500.2500, L100.0100 #### [facility] [address] [place], [address] Basic Metabolic Profile (BMP) Normal 133-145 [facility] Comment on above: Result Comment: Canc elled via OM: Order cancelled - Patient discharged Performed By: #### L 500.2500, L100.0100 #### [facility] [address] [place], [address] CBC W/Diff, Automatedon 05-0 Absolute Neut Normal 2.0-7.7 [facility] Comment on above: Result Comment: Canc elled via OM: Order cancelled - Patient discharged Performed By: #### L 500.2500, L100.0100 #### [facility] [address] [place], [address] HCT Normal 37-47 [facility] Comment on above: Result Comment: Canc elled via OM: Order cancelled - Patient discharged Performed By: #### L 500.2500, L100.0100 #### [facility] [address] [place], [address] HGB Normal 12.0-15.0 [facility] Comment on above: Result Comment: Canc elled via OM: Order cancelled - Patient discharged Performed By: #### L 500.2500, L100.0100 #### [facility] [address] [place], [address] MCH Normal 27.0-32.0 [facility] Comment on above: Result Comment: Canc elled via OM: Order cancelled - Patient discharged Performed By: #### L 500.2500, L100.0100 #### [facility] [facility] [address] [place], [address] MCHC Normal 32-36 [facility] Comment on above: Result Comment: Canc elled via OM: Order cancelled - Patient discharged Performed By: #### L 500.2500, L100.0100 #### [facility] [address] [place], [address] MCV Normal 81-99 [facility] Comment on above: Result Comment: Canc elled via OM: Order cancelled - Patient discharged Performed By: #### L 500.2500, L100.0100 #### [facility] [address] [place], [address] NEUT% Normal 47-70 [facility] Comment on above: Result Comment: Canc elled via OM: Order cancelled - Patient discharged Performed By: #### L 500.2500, L100.0100 #### [facility] [address] [place], [address] PLT Normal 150-450 [facility] Comment on above: Result Comment: Canc elled via OM: Order cancelled - Patient discharged Performed By: #### L 500.2500, L100.0100 #### [facility] [address] [place], [address] RBC Normal 4.2-5.4 [facility] Comment on above: Result Comment: Canc elled via OM: Order cancelled - Patient discharged Performed By: #### L 500.2500, L100.0100 #### [facility] [address] [place], [address] RDW CV Normal 11.6-14.6 [facility] Comment on above: Result Comment: Canc elled via OM: Order cancelled - Patient discharged Performed By: #### L 500.2500, L100.0100 #### [facility] [address] [place], [address] RDW SD Normal 35.1-43.9 [facility] Comment on above: Result Comment: Canc elled via OM: Order cancelled - Patient discharged Performed By: #### L 500.2500, L100.0100 #### [facility] [address] [place], [address] WBC Normal 4.4-11.0 [facility] Comment on above: Result Comment: Canc elled via OM: Order cancelled - Patient discharged Performed By: #### L 500.2500, L100.0100 #### [facility] [address] [place], [address] Basic Metabolic Profile (BMP )on 02-27-2025 BUN Normal 4-19 [facility] Comment on above: Result Comment: Canc elled via OM: Order cancelled - Patient discharged Performed By: #### L 500.2500, L100.0100 #### [facility] [address] [place], [address] BUN/CRE Normal 10-20 [facility] Comment on above: Result Comment: Canc elled via OM: Order cancelled - Patient discharged Performed By: #### L 500.2500, L100.0100 #### [facility] [address] [place], [address] Calcium Normal 7.6-11.0 [facility] Comment on above: Result Comment: Canc elled via OM: Order cancelled - Patient discharged Performed By: #### L 500.2500, L100.0100 #### [facility] [address] [place], [address] CL Normal 98-108 [facility] Comment on above: Result Comment: Canc elled via OM: Order cancelled - Patient discharged Performed By: #### L 500.2500, L100.0100 #### [facility] [address] [place], [address] CO2 Normal 21.0-32.0 [facility] Comment on above: Result Comment: Canc elled via OM: Order cancelled - Patient discharged Performed By: #### L 500.2500, L100.0100 #### [facility] [address] [place], [address] CREAT,SERUM Normal 0.70-1.20 [facility] Comment on above: Result Comment: Canc elled via OM: Order cancelled - Patient discharged Performed By: #### L 500.2500, L100.0100 #### [facility] [address] [place], [address] eGFR Normal >60 [facility] Comment on above: Result Comment: Canc elled via OM: Order cancelled - Patient discharged Performed By: #### L 500.2500, L100.0100 #### [facility] [address] [place], [address] GAP Normal 5-15 [facility] Comment on above: Result Comment: Canc elled via OM: Order cancelled - Patient discharged Performed By: #### L 500.2500, L100.0100 #### [facility] [address] [place], [address] GLU Normal 70-99 [facility] Comment on above: Result Comment: Canc elled via OM: Order cancelled - Patient discharged Performed By: #### L 500.2500, L100.0100 #### [facility] [address] [place], [address] Potassium Normal 3.3-5.1 [facility] Comment on above: Result Comment: Canc elled via OM: Order cancelled - Patient discharged Performed By: #### L 500.2500, L100.0100 #### [facility] [address] [place], [address] Basic Metabolic Profile (BMP) Normal 133-145 [facility] Comment on above: Result Comment: Canc elled via OM: Order cancelled - Patient discharged Performed By: #### L 500.2500, L100.0100 #### [facility] [address] [place], [address] CBC W/Diff, Automatedon 05-0 -2024 Absolute Neut Normal 2.0-7.7 [facility] Comment on above: Result Comment: Canc elled via OM: Order cancelled - Patient discharged Performed By: #### L 500.2500, L100.0100 #### [facility] [address] [place], [address] HCT Normal 37-47 [facility] Comment on above: Result Comment: Canc elled via OM: Order cancelled - Patient discharged Performed By: #### L 500.2500, L100.0100 #### [facility] [address] [place], [address] HGB Normal 12.0-15.0 [facility] Comment on above: Result Comment: Canc elled via OM: Order cancelled - Patient discharged Performed By: #### L 500.2500, L100.0100 #### [facility] [address] [place], [address] MCH Normal 27.0-32.0 [facility] Comment on above: Result Comment: Canc elled via OM: Order cancelled - Patient discharged Performed By: #### L 500.2500, L100.0100 #### [facility] [address] [place], [address] MCHC Normal 32-36 [facility] Comment on above: Result Comment: Canc elled via OM: Order cancelled - Patient discharged Performed By: #### L 500.2500, L100.0100 #### [facility] [address] [place], [address] MCV Normal 81-99 [facility] Comment on above: Result Comment: Canc elled via OM: Order cancelled - Patient discharged Performed By: #### L 500.2500, L100.0100 #### [facility] [address] [place], [address] NEUT% Normal 47-70 [facility] Comment on above: Result Comment: Canc elled via OM: Order cancelled - Patient discharged Performed By: #### L 500.2500, L100.0100 #### [facility] [address] [place], [address] PLT Normal 150-450 [facility] Comment on above: Result Comment: Canc elled via OM: Order cancelled - Patient discharged Performed By: #### L 500.2500, L100.0100 #### [facility] [address] [place], [address] RBC Normal 4.2-5.4 [facility] Comment on above: Result Comment: Canc elled via OM: Order cancelled - Patient discharged Performed By: #### L 500.2500, L100.0100 #### [facility] [address] [place], [address] RDW CV Normal 11.6-14.6 [facility] Comment on above: Result Comment: Canc elled via OM: Order cancelled - Patient discharged Performed By: #### L 500.2500, L100.0100 #### [facility] [address] [place], [address] RDW SD Normal 35.1-43.9 [facility] Comment on above: Result Comment: Canc elled via OM: Order cancelled - Patient discharged Performed By: #### L 500.2500, L100.0100 #### [facility] [address] [place], [address] WBC Normal 4.4-11.0 [facility] Comment on above: Result Comment: Canc elled via OM: Order cancelled - Patient discharged Performed By: #### L 500.2500, L100.0100 #### [facility] [address] [place], [address] Basic Metabolic Profile (BMP )on 02-26-2025 BUN Normal 4-19 [facility] Comment on above: Result Comment: Canc elled via OM: Order cancelled - Patient discharged Performed By: #### L 500.2500, L100.0100 #### [facility] [address] [place], [address] BUN/CRE Normal 10-20 [facility] Comment on above: Result Comment: Canc elled via OM: Order cancelled - Patient discharged Performed By: #### L 500.2500, L100.0100 #### [facility] [address] [place], [address] Calcium Normal 7.6-11.0 [facility] Comment on above: Result Comment: Canc elled via OM: Order cancelled - Patient discharged Performed By: #### L 500.2500, L100.0100 #### [facility] [address] [place], [address] CL Normal 98-108 [facility] Comment on above: Result Comment: Canc elled via OM: Order cancelled - Patient discharged Performed By: #### L 500.2500, L100.0100 #### [facility] [address] [place], [address] CO2 Normal 21.0-32.0 [facility] Comment on above: Result Comment: Canc elled via OM: Order cancelled - Patient discharged Performed By: #### L 500.2500, L100.0100 #### [facility] [address] [place], [address] CREAT,SERUM Normal 0.70-1.20 [facility] Comment on above: Result Comment: Canc elled via OM: Order cancelled - Patient discharged Performed By: #### L 500.2500, L100.0100 #### [facility] [address] [place], [address] eGFR Normal >60 [facility] Comment on above: Result Comment: Canc elled via OM: Order cancelled - Patient discharged Performed By: #### L 500.2500, L100.0100 #### [facility] [address] [place], [address] GAP Normal 5-15 [facility] Comment on above: Result Comment: Canc elled via OM: Order cancelled - Patient discharged Performed By: #### L 500.2500, L100.0100 #### [facility] [address] [place], [address] GLU Normal 70-99 [facility] Comment on above: Result Comment: Canc elled via OM: Order cancelled - Patient discharged Performed By: #### L 500.2500, L100.0100 #### [facility] [address] [place], [address] Potassium Normal 3.3-5.1 [facility] Comment on above: Result Comment: Canc elled via OM: Order cancelled - Patient discharged Performed By: #### L 500.2500, L100.0100 #### [facility] [address] [place], [address] Basic Metabolic Profile (BMP) Normal 133-145 [facility] Comment on above: Result Comment: Canc elled via OM: Order cancelled - Patient discharged Performed By: #### L 500.2500, L100.0100 #### [facility] [address] [place], [address] CBC W/Diff, Automatedon 05-0 2-2024 Absolute Neut Normal 2.0-7.7 [facility] Comment on above: Result Comment: Canc elled via OM: Order cancelled - Patient discharged Performed By: #### L 500.2500, L100.0100 #### [facility] [address] [place], [address] HCT Normal 37-47 [facility] Comment on above: Result Comment: Canc elled via OM: Order cancelled - Patient discharged Performed By: #### L 500.2500, L100.0100 #### [facility] [address] [place], [address] HGB Normal 12.0-15.0 [facility] Comment on above: Result Comment: Canc elled via OM: Order cancelled - Patient discharged Performed By: #### L 500.2500, L100.0100 #### [facility] [address] [place], [address] MCH Normal 27.0-32.0 [facility] Comment on above: Result Comment: Canc elled via OM: Order cancelled - Patient discharged Performed By: #### L 500.2500, L100.0100 #### [facility] [address] [place], [address] MCHC Normal 32-36 [facility] Comment on above: Result Comment: Canc elled via OM: Order cancelled - Patient discharged Performed By: #### L 500.2500, L100.0100 #### [facility] [address] [place], [address] MCV Normal 81-99 [facility] Comment on above: Result Comment: Canc elled via OM: Order cancelled - Patient discharged Performed By: #### L 500.2500, L100.0100 #### [facility] [address] [place], [address] NEUT% Normal 47-70 [facility] Comment on above: Result Comment: Canc elled via OM: Order cancelled - Patient discharged Performed By: #### L 500.2500, L100.0100 #### [facility] [address] [place], [address] PLT Normal 150-450 [facility] Comment on above: Result Comment: Canc elled via OM: Order cancelled - Patient discharged Performed By: #### L 500.2500, L100.0100 #### [facility] [address] [place], [address] RBC Normal 4.2-5.4 [facility] Comment on above: Result Comment: Canc elled via OM: Order cancelled - Patient discharged Performed By: #### L 500.2500, L100.0100 #### [facility] [address] [place], [address] RDW CV Normal 11.6-14.6 [facility] Comment on above: Result Comment: Canc elled via OM: Order cancelled - Patient discharged Performed By: #### L 500.2500, L100.0100 #### [facility] [address] [place], [address] RDW SD Normal 35.1-43.9 [facility] Comment on above: Result Comment: Canc elled via OM: Order cancelled - Patient discharged Performed By: #### L 500.2500, L100.0100 #### [facility] [address] [place], [address] WBC Normal 4.4-11.0 [facility] Comment on above: Result Comment: Canc elled via OM: Order cancelled - Patient discharged Performed By: #### L 500.2500, L100.0100 #### [facility] [address] [place], [address] Basic Metabolic Profile (BMP )on 02-25-2025 BUN Normal 4-19 [facility] Comment on above: Result Comment: Canc elled via OM: Order cancelled - Patient discharged Performed By: #### L 500.2500, L100.0100 #### [facility] [address] [place], [address] BUN/CRE Normal 10-20 [facility] Comment on above: Result Comment: Canc elled via OM: Order cancelled - Patient discharged Performed By: #### L 500.2500, L100.0100 #### [facility] [address] [place], [address] Calcium Normal 7.6-11.0 [facility] Comment on above: Result Comment: Canc elled via OM: Order cancelled - Patient discharged Performed By: #### L 500.2500, L100.0100 #### [facility] [address] [place], [address] CL Normal 98-108 [facility] Comment on above: Result Comment: Canc elled via OM: Order cancelled - Patient discharged Performed By: #### L 500.2500, L100.0100 #### [facility] [address] [place], [address] CO2 Normal 21.0-32.0 [facility] Comment on above: Result Comment: Canc elled via OM: Order cancelled - Patient discharged Performed By: #### L 500.2500, L100.0100 #### [facility] [address] [place], [address] CREAT,SERUM Normal 0.70-1.20 [facility] Comment on above: Result Comment: Canc elled via OM: Order cancelled - Patient discharged Performed By: #### L 500.2500, L100.0100 #### [facility] [address] [place], [address] eGFR Normal >60 [facility] Comment on above: Result Comment: Canc elled via OM: Order cancelled - Patient discharged Performed By: #### L 500.2500, L100.0100 #### [facility] [address] [place], [address] GAP Normal 5-15 [facility] Comment on above: Result Comment: Canc elled via OM: Order cancelled - Patient discharged Performed By: #### L 500.2500, L100.0100 #### [facility] [address] [place], [address] GLU Normal 70-99 [facility] Comment on above: Result Comment: Canc elled via OM: Order cancelled - Patient discharged Performed By: #### L 500.2500, L100.0100 #### [facility] [address] [place], [address] Potassium Normal 3.3-5.1 [facility] Comment on above: Result Comment: Canc elled via OM: Order cancelled - Patient discharged Performed By: #### L 500.2500, L100.0100 #### [facility] [address] [place], [address] Basic Metabolic Profile (BMP) Normal 133-145 [facility] Comment on above: Result Comment: Canc elled via OM: Order cancelled - Patient discharged Performed By: #### L 500.2500, L100.0100 #### [facility] [address] [place], [address] CBC W/Diff, Automatedon 05-0 -2024 Absolute Neut Normal 2.0-7.7 [facility] Comment on above: Result Comment: Canc elled via OM: Order cancelled - Patient discharged Performed By: #### L 500.2500, L100.0100 #### [facility] [address] [place], [address] HCT Normal 37-47 [facility] Comment on above: Result Comment: Canc elled via OM: Order cancelled - Patient discharged Performed By: #### L 500.2500, L100.0100 #### [facility] [address] [place], [address] HGB Normal 12.0-15.0 [facility] Comment on above: Result Comment: Canc elled via OM: Order cancelled - Patient discharged Performed By: #### L 500.2500, L100.0100 #### [facility] [address] [place], [address] MCH Normal 27.0-32.0 [facility] Comment on above: Result Comment: Canc elled via OM: Order cancelled - Patient discharged Performed By: #### L 500.2500, L100.0100 #### [facility] [address] [place], [address] MCHC Normal 32-36 [facility] Comment on above: Result Comment: Canc elled via OM: Order cancelled - Patient discharged Performed By: #### L 500.2500, L100.0100 #### [facility] [address] [place], [address] MCV Normal 81-99 [facility] Comment on above: Result Comment: Canc elled via OM: Order cancelled - Patient discharged Performed By: #### L 500.2500, L100.0100 #### [facility] [address] [place], [address] NEUT% Normal 47-70 [facility] Comment on above: Result Comment: Canc elled via OM: Order cancelled - Patient discharged Performed By: #### L 500.2500, L100.0100 #### [facility] [address] [place], [address] PLT Normal 150-450 [facility] Comment on above: Result Comment: Canc elled via OM: Order cancelled - Patient discharged Performed By: #### L 500.2500, L100.0100 #### [facility] [address] [place], [address] RBC Normal 4.2-5.4 [facility] Comment on above: Result Comment: Canc elled via OM: Order cancelled - Patient discharged Performed By: #### L 500.2500, L100.0100 #### [facility] [address] [place], [address] RDW CV Normal 11.6-14.6 [facility] Comment on above: Result Comment: Canc elled via OM: Order cancelled - Patient discharged Performed By: #### L 500.2500, L100.0100 #### [facility] [address] [place], [address] RDW SD Normal 35.1-43.9 [facility] Comment on above: Result Comment: Canc elled via OM: Order cancelled - Patient discharged Performed By: #### L 500.2500, L100.0100 #### [facility] [address] [place], [address] WBC Normal 4.4-11.0 [facility] Comment on above: Result Comment: Canc elled via OM: Order cancelled - Patient discharged Performed By: #### L 500.2500, L100.0100 #### [facility] [address] [place], [address] Basic Metabolic Profile (BMP )on 02-24-2025 BUN Normal 4-19 [facility] Comment on above: Result Comment: Canc elled via OM: Order cancelled - Patient discharged Performed By: #### L 500.2500, L100.0100 #### [facility] [address] [place], [address] BUN/CRE Normal 10-20 [facility] Comment on above: Result Comment: Canc elled via OM: Order cancelled - Patient discharged Performed By: #### L 500.2500, L100.0100 #### [facility] [address] [place], [address] Calcium Normal 7.6-11.0 [facility] Comment on above: Result Comment: Canc elled via OM: Order cancelled - Patient discharged Performed By: #### L 500.2500, L100.0100 #### [facility] [address] [place], [address] CL Normal 98-108 [facility] Comment on above: Result Comment: Canc elled via OM: Order cancelled - Patient discharged Performed By: #### L 500.2500, L100.0100 #### [facility] [address] [place], [address] CO2 Normal 21.0-32.0 [facility] Comment on above: Result Comment: Canc elled via OM: Order cancelled - Patient discharged Performed By: #### L 500.2500, L100.0100 #### [facility] [address] [place], [address] CREAT,SERUM Normal 0.70-1.20 [facility] Comment on above: Result Comment: Canc elled via OM: Order cancelled - Patient discharged Performed By: #### L 500.2500, L100.0100 #### [facility] [address] [place], [address] eGFR Normal >60 [facility] Comment on above: Result Comment: Canc elled via OM: Order cancelled - Patient discharged Performed By: #### L 500.2500, L100.0100 #### [facility] [address] [place], [address] GAP Normal 5-15 [facility] Comment on above: Result Comment: Canc elled via OM: Order cancelled - Patient discharged Performed By: #### L 500.2500, L100.0100 #### [facility] [address] [place], [address] GLU Normal 70-99 [facility] Comment on above: Result Comment: Canc elled via OM: Order cancelled - Patient discharged Performed By: #### L 500.2500, L100.0100 #### [facility] [address] [place], [address] Potassium Normal 3.3-5.1 [facility] Comment on above: Result Comment: Canc elled via OM: Order cancelled - Patient discharged Performed By: #### L 500.2500, L100.0100 #### [facility] [address] [place], [address] Basic Metabolic Profile (BMP) Normal 133-145 [facility] Comment on above: Result Comment: Canc elled via OM: Order cancelled - Patient discharged Performed By: #### L 500.2500, L100.0100 #### [facility] [address] [place], [address] CBC W/Diff, Automatedon 04-3 -2024 Absolute Neut Normal 2.0-7.7 [facility] Comment on above: Result Comment: Canc elled via OM: Order cancelled - Patient discharged Performed By: #### L 500.2500, L100.0100 #### [facility] [address] [place], [address] HCT Normal 37-47 [facility] Comment on above: Result Comment: Canc elled via OM: Order cancelled - Patient discharged Performed By: #### L 500.2500, L100.0100 #### [facility] [address] [place], [address] HGB Normal 12.0-15.0 [facility] Comment on above: Result Comment: Canc elled via OM: Order cancelled - Patient discharged Performed By: #### L 500.2500, L100.0100 #### [facility] [address] [place], [address] MCH Normal 27.0-32.0 [facility] Comment on above: Result Comment: Canc elled via OM: Order cancelled - Patient discharged Performed By: #### L 500.2500, L100.0100 #### [facility] [address] [place], [address] MCHC Normal 32-36 [facility] Comment on above: Result Comment: Canc elled via OM: Order cancelled - Patient discharged Performed By: #### L 500.2500, L100.0100 #### [facility] [address] [place], [address] MCV Normal 81-99 [facility] Comment on above: Result Comment: Canc elled via OM: Order cancelled - Patient discharged Performed By: #### L 500.2500, L100.0100 #### [facility] [address] [place], [address] NEUT% Normal 47-70 [facility] Comment on above: Result Comment: Canc elled via OM: Order cancelled - Patient discharged Performed By: #### L 500.2500, L100.0100 #### [facility] [address] [place], [address] PLT Normal 150-450 [facility] Comment on above: Result Comment: Canc elled via OM: Order cancelled - Patient discharged Performed By: #### L 500.2500, L100.0100 #### [facility] [address] [place], [address] RBC Normal 4.2-5.4 [facility] Comment on above: Result Comment: Canc elled via OM: Order cancelled - Patient discharged Performed By: #### L 500.2500, L100.0100 #### [facility] [address] [place], [address] RDW CV Normal 11.6-14.6 [facility] Comment on above: Result Comment: Canc elled via OM: Order cancelled - Patient discharged Performed By: #### L 500.2500, L100.0100 #### [facility] [address] [place], [address] RDW SD Normal 35.1-43.9 [facility] Comment on above: Result Comment: Canc elled via OM: Order cancelled - Patient discharged Performed By: #### L 500.2500, L100.0100 #### [facility] [address] [place], [address] WBC Normal 4.4-11.0 [facility] Comment on above: Result Comment: Canc elled via OM: Order cancelled - Patient discharged Performed By: #### L 500.2500, L100.0100 #### [facility] [address] [place], [address] Culture, Blood (WB)on 2024 CUB Blood cultures x2, f rom two different sites No growth in 5 days. Normal [facility] Comment on above: Performed By: #### L 500.2500, L100.0100 #### [facility] [address] [place], [address] Absolute lymphocyte countOrd ered By: Yee Jones on 02-23-2025 Lymphocytes Auto (Unsp spec) [#/Vol] 0.85 10*3/uL 0.83-4.51 [facility] Absolute neutrophil countOrd ered By: Yee Jones on 02-23-2025 Neutrophils (Bld) [#/Vol] 5.9 10*3/uL 2.0-7.7 [facility] Anion gap in Serum or Plasma Ordered By: Yee Jones on 02-23-2025 Anion gap [Moles/Vol] 9 mmol/L 5-15 [facility] Automated lymphocyte count a s percentage of total leukocytesOrdered By: Yee Jones on 02-23-2025 Lymphocytes/100 WBC Auto (Unsp spec) 11.2 % Low 19-41 [facility] BUN/creatinine ratioOrdered By: Yee Jones on 02-23-2025 Urea nitrogen/Creatinine [Mass ratio] 31.6 mg/mg High 10-20 [facility] Basic Metabolic Profile (BMP )on 02-23-2025 BUN/CRE 31.6 RATIO High 10-20 [facility] Comment on above: Performed By: #### L 500.2500, L100.0100 #### [facility] [address] [place], [address] Calcium [Mass/Vol] 9.4 mg/dL Normal 7.6-11.0 [facility] Comment on above: Performed By: #### L 500.2500, L100.0100 #### [facility] [address] [place], [address] Chloride [Moles/Vol] 96 mmol/L Low 98-108 [facility] Comment on above: Performed By: #### L 500.2500, L100.0100 #### [facility] [address] [place], [address] CO2 [Moles/Vol] 40.2 mmol/L High 21.0-32.0 [facility] Comment on above: Performed By: #### L 500.2500, L100.0100 #### [facility] [address] [place], [address] Creatinine [Mass/Vol] 0.62 mg/dL Low 0.70-1.20 [facility] Comment on above: Performed By: #### L 500.2500, L100.0100 #### [facility] [address] [place], [address] ECRCL 86.12 ml/min Normal 50-250 [facility] Comment on above: Performed By: #### L 500.2500, L100.0100 #### [facility] [address] [place], [address] GAP 9 Normal 5-15 [facility] Comment on above: Performed By: #### L 500.2500, L100.0100 #### [facility] [address] [place], [address] GFR/1.73 sq M.predicted among non-blacks MDRD (S/P/Bld) [Vol rate/Area] 97 mL/min/{1.73_m2} Normal >60 [facility] Comment on above: Result Comment: mL/m in/1.73m2 CKD-EPI Creatinine Equation (2020) Performed By: #### L 500.2500, L100.0100 #### [facility] [address] [place], [address] Glucose [Mass/Vol] 114 mg/dL High 70-99 [facility] Comment on above: Performed By: #### L 500.2500, L100.0100 #### [facility] [address] [place], [address] Potassium [Moles/Vol] 3.3 mmol/L Normal 3.3-5.1 [facility] Comment on above: Performed By: #### L 500.2500, L100.0100 #### [facility] [address] [place], [address] Sodium [Moles/Vol] 145 mmol/L Normal 133-145 [facility] Comment on above: Performed By: #### L 500.2500, L100.0100 #### [facility] [address] [place], [address] Urea nitrogen [Mass/Vol] 20 mg/dL High 4-19 [facility] Comment on above: Performed By: #### L 500.2500, L100.0100 #### [facility] [address] [place], [address] Basophil percentageOrdered B y: Yee Jones on 02-23-2025 Basophils/100 WBC (Bld) 0.7 % 0-1 [facility] CBC W/Diff, Automatedon 01-27 Absolute Lymph 0.85 X10 3/uL Normal 0.83-4.51 [facility] Comment on above: Performed By: #### L 500.2500, L100.0100 #### [facility] [address] [place], [address] Absolute Neut 5.9 X10 3/uL Normal 2.0-7.7 [facility] Comment on above: Performed By: #### L 500.2500, L100.0100 #### [facility] [address] [place], [address] Basophils/100 WBC (Bld) 0.7 % Normal 0-1 [facility] Comment on above: Performed By: #### L 500.2500, L100.0100 #### [facility] [address] [place], [address] Eosinophils/100 WBC (Bld) 1.7 % Normal 0-5 [facility] Comment on above: Performed By: #### L 500.2500, L100.0100 #### [facility] [address] [place], [address] Erythrocyte distribution width (RBC) [Ratio] 14.3 % Normal 11.6-14.6 [facility] Comment on above: Performed By: #### L 500.2500, L100.0100 #### [facility] [address] [place], [address] Hematocrit (Bld) [Volume fraction] 45.7 % Normal 37-47 [facility] Comment on above: Performed By: #### L 500.2500, L100.0100 #### [facility] [address] [place], [address] Hemoglobin (Bld) [Mass/Vol] 14.1 g/dL Normal 12.0-15.0 [facility] Comment on above: Performed By: #### L 500.2500, L100.0100 #### [facility] [address] [place], [address] IG% 0.400 Normal 0.0-0.9 [facility] Comment on above: Result Comment: IG% - Immature Granulocytes (promyelocytes, myelocytes and metamyelocytes) > 1% indicates that a LEFT SHIFT is Present. Performed By: #### L 500.2500, L100.0100 #### [facility] [address] [place], [address] Lymphocytes/100 WBC (Bld) 11.2 % Low 19-41 [facility] Comment on above: Performed By: #### L 500.2500, L100.0100 #### [facility] [address] [place], [address] MCH (RBC) [Entitic mass] 30.9 pg Normal 27.0-32.0 [facility] Comment on above: Performed By: #### L 500.2500, L100.0100 #### [facility] [address] [place], [address] MCHC (RBC) [Mass/Vol] 30.9 g/dL Low 32-36 [facility] Comment on above: Performed By: #### L 500.2500, L100.0100 #### [facility] [address] [place], [address] MCV (RBC) [Entitic vol] 100.2 fL High 81-99 [facility] Comment on above: Performed By: #### L 500.2500, L100.0100 #### [facility] [address] [place], [address] Monocytes/100 WBC (Bld) 7.9 % Normal 0-10 [facility] Comment on above: Performed By: #### L 500.2500, L100.0100 #### [facility] [address] [place], [address] Neutrophils/100 WBC (Bld) 78.1 % High 47-70 [facility] Comment on above: Performed By: #### L 500.2500, L100.0100 #### [facility] [address] [place], [address] Nucleated RBC (Bld) [#/Vol] 0 10*3/uL Normal 0-5 [facility] Comment on above: Performed By: #### L 500.2500, L100.0100 #### [facility] [address] [place], [address] Platelet mean volume (Bld) [Entitic vol] 10.7 fL Normal 6.2-12.0 [facility] Comment on above: Performed By: #### L 500.2500, L100.0100 #### [facility] [address] [place], [address] Platelets (Bld) [#/Vol] 217 10*3/uL Normal 150-450 [facility] Comment on above: Performed By: #### L 500.2500, L100.0100 #### [facility] [address] [place], [address] RBC (Bld) [#/Vol] 4.56 10*6/uL Normal 4.2-5.4 [facility] Comment on above: Performed By: #### L 500.2500, L100.0100 #### [facility] [address] [place], [address] RDW SD 53.5 fl High 35.1-43.9 [facility] Comment on above: Performed By: #### L 500.2500, L100.0100 #### [facility] [address] [place], [address] WBC (Bld) [#/Vol] 7.6 10*3/uL Normal 4.4-11.0 [facility] Comment on above: Performed By: #### L 500.2500, L100.0100 #### [facility] [address] [place], [address] Carbon dioxide, total [Moles /volume] in Central venous bloodOrdered By: Yee Jones on 02-23-2025 CO2 [Moles/Vol] 40.2 mmol/L High 21.0-32.0 [facility] Chloride assayOrdered By: Na lawanda Jones on 02-23-2025 Chloride [Moles/Vol] 96 mmol/L Low 98-108 [facility] Discharge Instructionon 01-27 Discharge Instruction [facility] Medical Records Department [address] [place] [address] Instructions for Home/Discharge Instructions 02/23/25 1320 MR#: [id number] Acct: [id number] Name: LISA LUCERO Rep #: [id number] : 1955 69 From: Yee Jones MD PCP: Dr. Phuc Martines, DO Status:ADM IN Discharge Instructions Diet Discharge Diet: Low fat / Low cholesterol DC O2, CPAP, BIPAP needs Home O2 Discharge instructions: Yes Type of respiratory needs?: Oxygen Oxygen frequency: At rest (3.5) and With Ambulation Oxygen liters per minute during Ambulation: 6 Dressing / Incision Discharge Activity: Return to Normal Activity Weight Bearing Status: Weight bearing as tolerated Dressing / Incision Call your doctor if you observe: Fever of 101 or Higher, Shortness of breath, Dizziness, Swelling in the ankles and Chest pain Follow Up Care Test Results: Test results from this visit will be discussed in further detail at your follow-up appointment, if applicable. Discharge Plan Admission Admit Date/Time: 02/19/25 15:53 Primary Reason for Your Visit: acute exacerbation of heart failure Attending Provider: Yee Jones Primary Care Provider: Phuc Martines Consulting Providers: Kym Norton; Claudia Valerio Instructions Patient Instructions: Coping with Heart Failure Discharge Orders/Prescriptions Prescriptions: New metoprolol tartrate 50 mg Tablet 50 mg PO BID Qty: 60 2RF furosemide 40 mg tablet 40 mg PO BID Qty: 60 2RF potassium chloride [Klor-Con M20] 20 mEq tablet,ER particles/crystals 20 meq PO BID Qty: 60 2RF Eliquis 5 mg Tablet 5 mg PO BID Qty: 60 2RF Continued ascorbic acid (vitamin C) 500 MG capsule 500 mg PO DAILY Oxygen, Home [Home Oxygen] 2 - 4 lpm NASAL QHS albuterol sulfate 90 mcg/actuation aerosol powdr breath activated 2 inh inhalation Q6H PRN (Reason: shortness of breath) amlodipine 10 mg tablet 10 mg PO DAILY Trelegy Ellipta 200-62.5-25 mcg blister with device 1 ea inhalation DAILY triamcinolone acetonide 0.5 % cream 1 applic topical BID PRN (Reason: itching) ipratropium-albuterol 0.5 mg-3 mg(2.5 mg base)/3 mL solution for nebulization 3 ml inhalation Q6H PRN (Reason: shortness of breath) multivitamin [Daily Multi-Vitamin] Tablet 1 tab PO DAILY Oxford Saline 0.65 % aerosol,spray 1 spray intranasal BID PRN (Reason: dry nasal passages) guaifenesin [Mucus Relief ER] 1,200 MG tablet 1,200 mg PO BID PRN (Reason: cough) Discontinued triamterene-hydrochlorothiazi d 37.5-25 mg capsule 1 cap PO DAILY Patient Comments: PT TAKES IN AFTERNOON Referrals / Follow Up: Piyush Peterson MD [Med Staff - Active Staff] - Within 2 Weeks (see to establish care for afib and heart failure) Phuc Martines DO [Primary Care Provider] - Within 1 Week Disposition Disposition (needs filled in before D/C Order can be placed): Home, Self Care 02/23/25 1322 Yee Jones MD CC: Dr. Phuc Martines DO; Dr. Claudia Valerio DO; Dr. Kym Norton MD Signed Normal [facility] Eosinophil percentageOrdered By: Yee Jones on 02-23-2025 Eosinophils/100 WBC (Bld) 1.7 % 0-5 [facility] Erythrocyte distribution wid th (RBC) [Ratio]Ordered By: Yee Jones on 02-23-2025 Erythrocyte distribution width (RBC) [Entitic vol] 53.5 fL High 35.1-43.9 [facility] Erythrocyte distribution wid th ratioOrdered By: Yee Jones on 02-23-2025 Erythrocyte distribution width (RBC) [Ratio] 14.3 % 11.6-14.6 [facility] Erythrocyte distribution wid th standard deviationOrdered By: Yee Jones on 02-23-2025 Erythrocyte distribution width (RBC) [Ratio] 53.5 fl High 35.1-43.9 [facility] Estimation of creatinine dilan aranceOrdered By: Yee Jones on 02-23-2025 Estimated Creatinine Clearance Calc 86.12 ml/min 50-250 [facility] GFR/1.73 sq M.predicted rosalba g non-blacks MDRD (S/P/Bld) [Vol rate/Area]Ordered By: Yee Jones on 02-23-2025 Estimated GFR (MDRD) Non-Af Amer 97 >60 [facility] Comment on above: mL/min/1.73m2 CKD-EP I Creatinine Equation (2020) Glomerular filtration rate ( GFR) estimation/1.73 sq m using serum, plasma, or whole bOrdered By: Yee Jones on 02-23-2025 GFR/1.73 sq M.predicted among non-blacks MDRD (S/P/Bld) [Vol rate/Area] 97 mL/min/{1.73_m2} >60 [facility] Comment on above: mL/min/1.73m2 CKD-EP I Creatinine Equation (2020) Hematocrit Auto (Bld) [Volum e fraction]Ordered By: Yee Jones on 02-23-2025 Hematocrit (Bld) [Volume fraction] 45.7 % 37-47 [facility] Hemoglobin measurementOrdere d By: Yee Jones on 02-23-2025 Hemoglobin (Bld) [Mass/Vol] 14.1 g/dL 12.0-15.0 [facility] Immature granulocytes/100 WB C Auto (Bld)Ordered By: Yee Jones on 02-23-2025 Immature granulocytes/100 WBC (Bld) 0.400 % 0.0-0.9 [facility] Comment on above: IG% - Immature Granu locytes (promyelocytes, myelocytes and metamyelocytes) > 1% indicates that a LEFT SHIFT is Present. Lymphocytes Auto (Unsp spec) [#/Vol]Ordered By: Yee Jones on 02-23-2025 Lymphocytes (Bld) [#/Vol] 0.85 10*3/uL 0.83-4.51 [facility] Lymphocytes/100 WBC Auto (Un sp spec)Ordered By: Yee Jones 02-23-2025 Lymphocytes/100 WBC (Bld) 11.2 % Low 19-41 [facility] MCV (mean corpuscular volume ) determinationOrdered By: Yee Jones 02-23-2025 MCV (RBC) [Entitic vol] 100.2 fL High 81-99 [facility] Mean corpuscular hemoglobin (MCH) determinationOrdered By: Yee Jones 02-23-2025 MCH (RBC) [Entitic mass] 30.9 pg 27.0-32.0 [facility] Mean corpuscular hemoglobin concentration (MCHC) determinationOrdered By: Yee Jones 02-23-2025 MCHC (RBC) [Mass/Vol] 30.9 g/dL Low 32-36 [facility] Mean platelet volume determi nationOrdered By: Yee Jones on 02-23-2025 Platelet mean volume (Bld) [Entitic vol] 10.7 fL 6.2-12.0 [facility] Monocyte percentageOrdered B y: Yee Jones on 02-23-2025 Monocytes/100 WBC (Bld) 7.9 % 0-10 [facility] Neutrophil percentageOrdered By: Yee Kumaryajaira on 02-23-2025 Neutrophils/100 WBC (Bld) 78.1 % High 47-70 [facility] Nucleated red blood cell per centageOrdered By: Yee Robert on 02-23-2025 Nucleated RBC/100 WBC (Bld) [Ratio] 0 % 0-5 [facility] Platelet countOrdered By: Na na Robert on 02-23-2025 Platelets (Bld) [#/Vol] 217 10*3/uL 150-450 [facility] Potassium (Unsp spec) [Mass/ Vol]Ordered By: Yee Jones on 02-23-2025 Potassium [Moles/Vol] 3.3 mmol/L 3.3-5.1 [facility] Potassium measurement (mass/ volume)Ordered By: Yee Jones on 02-23-2025 Potassium (Unsp spec) [Mass/Vol] 3.3 mmol/L 3.3-5.1 [facility] RBC Auto (Bld) [#/Vol]Ordere d By: Yee oRbert on 02-23-2025 RBC (Bld) [#/Vol] 4.56 10*6/uL 4.2-5.4 [facility] Serum creatinine measurement (mass/volume)Ordered By: Yee Jones on 02-23-2025 Creatinine [Mass/Vol] 0.62 mg/dL Low 0.70-1.20 [facility] Serum glucose measurement (m ass/volume)Ordered By: Yee Jones on 02-23-2025 Glucose [Mass/Vol] 114 mg/dL High 70-99 [facility] Serum or plasma calcium tad urement (mass/volume)Ordered By: Yee Jones on 02-23-2025 Calcium [Mass/Vol] 9.4 mg/dL 7.6-11.0 [facility] Serum or plasma urea nitroge n measurement (mass/volume)Ordered By: Yee Jones on 02-23-2025 Urea nitrogen [Mass/Vol] 20 mg/dL High 4-19 [facility] Sodium levelOrdered By: Yee Jones on 02-23-2025 Sodium [Moles/Vol] 145 mmol/L 133-145 [facility] White blood cell (WBC) count Ordered By: Yee Robert on 02-23-2025 WBC (Bld) [#/Vol] 7.6 10*3/uL 4.4-11.0 [facility] Basic Metabolic Profile (BMP )on 02-22-2025 BUN/CRE 36.2 RATIO High 10-20 [facility] Comment on above: Performed By: #### L 100.0500, L501.2300, L501.5200, L500.2500 #### [facility] [address] [place], [address] Calcium [Mass/Vol] 9.4 mg/dL Normal 7.6-11.0 [facility] Comment on above: Performed By: #### L 100.0500, L501.2300, L501.5200, L500.2500 #### [facility] [address] [place], [address] Chloride [Moles/Vol] 96 mmol/L Low 98-108 [facility] Comment on above: Performed By: #### L 100.0500, L501.2300, L501.5200, L500.2500 #### [facility] [address] [place], [address] CO2 [Moles/Vol] 36.4 mmol/L High 21.0-32.0 [facility] Comment on above: Performed By: #### L 100.0500, L501.2300, L501.5200, L500.2500 #### [facility] [address] [place], [address] Creatinine [Mass/Vol] 0.60 mg/dL Low 0.70-1.20 [facility] Comment on above: Performed By: #### L 100.0500, L501.2300, L501.5200, L500.2500 #### [facility] [address] [place], [address] ECRCL 86.29 ml/min Normal 50-250 [facility] Comment on above: Performed By: #### L 100.0500, L501.2300, L501.5200, L500.2500 #### [facility] [address] [place], [address] GAP 11 Normal 5-15 [facility] Comment on above: Performed By: #### L 100.0500, L501.2300, L501.5200, L500.2500 #### [facility] [address] [place], [address] GFR/1.73 sq M.predicted among non-blacks MDRD (S/P/Bld) [Vol rate/Area] 98 mL/min/{1.73_m2} Normal >60 [facility] Comment on above: Result Comment: mL/m in/1.73m2 CKD-EPI Creatinine Equation (2020) Performed By: #### L 100.0500, L501.2300, L501.5200, L500.2500 #### [facility] [address] [place], [address] Glucose [Mass/Vol] 115 mg/dL High 70-99 [facility] Comment on above: Performed By: #### L 100.0500, L501.2300, L501.5200, L500.2500 #### [facility] [address] [place], [address] Potassium [Moles/Vol] 3.5 mmol/L Normal 3.3-5.1 [facility] Comment on above: Performed By: #### L 100.0500, L501.2300, L501.5200, L500.2500 #### [facility] [address] [place], [address] Sodium [Moles/Vol] 144 mmol/L Normal 133-145 [facility] Comment on above: Performed By: #### L 100.0500, L501.2300, L501.5200, L500.2500 #### [facility] [address] [place], [address] Urea nitrogen [Mass/Vol] 22 mg/dL High 4-19 [facility] Comment on above: Performed By: #### L 100.0500, L501.2300, L501.5200, L500.2500 #### [facility] [address] [place], [address] CBC-Complete Blood Cnt No Di ffon 02-22-2025 Erythrocyte distribution width (RBC) [Ratio] 14.5 % Normal 11.6-14.6 [facility] Comment on above: Performed By: #### L 100.0500, L501.2300, L501.5200, L500.2500 #### [facility] [address] [place], [address] Hematocrit (Bld) [Volume fraction] 42.6 % Normal 37-47 [facility] Comment on above: Performed By: #### L 100.0500, L501.2300, L501.5200, L500.2500 #### [facility] [address] [place], [address] Hemoglobin (Bld) [Mass/Vol] 13.2 g/dL Normal 12.0-15.0 [facility] Comment on above: Performed By: #### L 100.0500, L501.2300, L501.5200, L500.2500 #### [facility] [address] [place], [address] MCH (RBC) [Entitic mass] 31.4 pg Normal 27.0-32.0 [facility] Comment on above: Performed By: #### L 100.0500, L501.2300, L501.5200, L500.2500 #### [facility] [address] [place], [address] MCHC (RBC) [Mass/Vol] 31.0 g/dL Low 32-36 [facility] Comment on above: Performed By: #### L 100.0500, L501.2300, L501.5200, L500.2500 #### [facility] [address] [place], [address] MCV (RBC) [Entitic vol] 101.2 fL High 81-99 [facility] Comment on above: Performed By: #### L 100.0500, L501.2300, L501.5200, L500.2500 #### [facility] [address] [place], [address] Platelet mean volume (Bld) [Entitic vol] 11.3 fL Normal 6.2-12.0 [facility] Comment on above: Performed By: #### L 100.0500, L501.2300, L501.5200, L500.2500 #### [facility] [address] [place], [address] Platelets (Bld) [#/Vol] 189 10*3/uL Normal 150-450 [facility] Comment on above: Performed By: #### L 100.0500, L501.2300, L501.5200, L500.2500 #### [facility] [address] [place], [address] RBC (Bld) [#/Vol] 4.21 10*6/uL Normal 4.2-5.4 [facility] Comment on above: Performed By: #### L 100.0500, L501.2300, L501.5200, L500.2500 #### [facility] [address] [place], [address] RDW SD 54.4 fl High 35.1-43.9 [facility] Comment on above: Performed By: #### L 100.0500, L501.2300, L501.5200, L500.2500 #### [facility] [address] [place], [address] WBC (Bld) [#/Vol] 8.1 10*3/uL Normal 4.4-11.0 [facility] Comment on above: Performed By: #### L 100.0500, L501.2300, L501.5200, L500.2500 #### [facility] [address] [place], [address] Magnesiumon 02-22-2025 Magnesium [Mass/Vol] 2.2 mg/dL Normal 1.5-2.2 [facility] Comment on above: Performed By: #### L 100.0500, L501.2300, L501.5200, L500.2500 #### [facility] [address] [place], [address] Magnesium (Unsp spec) [Mass/ Vol]Ordered By: Claudia Valerio on 02-22-2025 Magnesium [Mass/Vol] 2.2 mg/dL 1.5-2.2 [facility] Magnesium measurement (mass/ volume)Ordered By: Claudia Valerio on 02-22-2025 Magnesium (Unsp spec) [Mass/Vol] 2.2 mg/dL 1.5-2.2 [facility] Phosphoruson 02-22-2025 Phosphate [Mass/Vol] 4.9 mg/dL High 2.7-4.5 [facility] Comment on above: Performed By: #### L 100.0500, L501.2300, L501.5200, L500.2500 #### [facility] [address] [place], [address] Serum phosphorus measurement Ordered By: Claudia Valerio on 02-22-2025 Phosphorus Level 4.9 mg/dL High 2.7-4.5 [facility] Basic Metabolic Profile (BMP )on 02-21-2025 BUN/CRE 40.7 RATIO High 10-20 [facility] Comment on above: Performed By: #### L 100.0500, L501.2300, L501.5200, L500.2500 #### [facility] [address] [place], [address] Calcium [Mass/Vol] 8.9 mg/dL Normal 7.6-11.0 [facility] Comment on above: Performed By: #### L 100.0500, L501.2300, L501.5200, L500.2500 #### [facility] [address] [place], [address] Chloride [Moles/Vol] 96 mmol/L Low 98-108 [facility] Comment on above: Performed By: #### L 100.0500, L501.2300, L501.5200, L500.2500 #### [facility] [address] [place], [address] CO2 [Moles/Vol] 39.0 mmol/L High 21.0-32.0 [facility] Comment on above: Performed By: #### L 100.0500, L501.2300, L501.5200, L500.2500 #### [facility] [address] [place], [address] Creatinine [Mass/Vol] 0.54 mg/dL Low 0.70-1.20 [facility] Comment on above: Performed By: #### L 100.0500, L501.2300, L501.5200, L500.2500 #### [facility] [address] [place], [address] ECRCL 85.99 ml/min Normal 50-250 [facility] Comment on above: Performed By: #### L 100.0500, L501.2300, L501.5200, L500.2500 #### [facility] [address] [place], [address] GAP 9 Normal 5-15 [facility] Comment on above: Performed By: #### L 100.0500, L501.2300, L501.5200, L500.2500 #### [facility] [address] [place], [address] GFR/1.73 sq M.predicted among non-blacks MDRD (S/P/Bld) [Vol rate/Area] 101 mL/min/{1.73_m2} Normal >60 [facility] Comment on above: Result Comment: mL/m in/1.73m2 CKD-EPI Creatinine Equation (2020) Performed By: #### L 100.0500, L501.2300, L501.5200, L500.2500 #### [facility] [address] [place], [address] Glucose [Mass/Vol] 119 mg/dL High 70-99 [facility] Comment on above: Performed By: #### L 100.0500, L501.2300, L501.5200, L500.2500 #### [facility] [address] [place], [address] Potassium [Moles/Vol] 3.3 mmol/L Normal 3.3-5.1 [facility] Comment on above: Performed By: #### L 100.0500, L501.2300, L501.5200, L500.2500 #### [facility] [address] [place], [address] Sodium [Moles/Vol] 144 mmol/L Normal 133-145 [facility] Comment on above: Performed By: #### L 100.0500, L501.2300, L501.5200, L500.2500 #### [facility] [address] [place], [address] Urea nitrogen [Mass/Vol] 22 mg/dL High 4-19 [facility] Comment on above: Performed By: #### L 100.0500, L501.2300, L501.5200, L500.2500 #### [facility] [address] [place], [address] CBC-Complete Blood Cnt No Di ffon 02-21-2025 Erythrocyte distribution width (RBC) [Ratio] 14.6 % Normal 11.6-14.6 [facility] Comment on above: Performed By: #### L 100.0500, L501.2300, L501.5200, L500.2500 #### [facility] [address] [place], [address] Hematocrit (Bld) [Volume fraction] 40.3 % Normal 37-47 [facility] Comment on above: Performed By: #### L 100.0500, L501.2300, L501.5200, L500.2500 #### [facility] [address] [place], [address] Hemoglobin (Bld) [Mass/Vol] 12.6 g/dL Normal 12.0-15.0 [facility] Comment on above: Performed By: #### L 100.0500, L501.2300, L501.5200, L500.2500 #### [facility] [address] [place], [address] MCH (RBC) [Entitic mass] 31.3 pg Normal 27.0-32.0 [facility] Comment on above: Performed By: #### L 100.0500, L501.2300, L501.5200, L500.2500 #### [facility] [address] [place], [address] MCHC (RBC) [Mass/Vol] 31.3 g/dL Low 32-36 [facility] Comment on above: Performed By: #### L 100.0500, L501.2300, L501.5200, L500.2500 #### [facility] [address] [place], [address] MCV (RBC) [Entitic vol] 100.2 fL High 81-99 [facility] Comment on above: Performed By: #### L 100.0500, L501.2300, L501.5200, L500.2500 #### [facility] [address] [place], [address] Platelet mean volume (Bld) [Entitic vol] 10.6 fL Normal 6.2-12.0 [facility] Comment on above: Performed By: #### L 100.0500, L501.2300, L501.5200, L500.2500 #### [facility] [address] [place], [address] Platelets (Bld) [#/Vol] 226 10*3/uL Normal 150-450 [facility] Comment on above: Performed By: #### L 100.0500, L501.2300, L501.5200, L500.2500 #### [facility] [address] [place], [address] RBC (Bld) [#/Vol] 4.02 10*6/uL Low 4.2-5.4 [facility] Comment on above: Performed By: #### L 100.0500, L501.2300, L501.5200, L500.2500 #### [facility] [address] [place], [address] RDW SD 54.2 fl High 35.1-43.9 [facility] Comment on above: Performed By: #### L 100.0500, L501.2300, L501.5200, L500.2500 #### [facility] [address] [place], [address] WBC (Bld) [#/Vol] 8.9 10*3/uL Normal 4.4-11.0 [facility] Comment on above: Performed By: #### L 100.0500, L501.2300, L501.5200, L500.2500 #### [facility] [address] [place], [address] Magnesiumon 02-21-2025 Magnesium [Mass/Vol] 1.9 mg/dL Normal 1.5-2.2 [facility] Comment on above: Performed By: #### L 100.0500, L501.2300, L501.5200, L500.2500 #### [facility] [address] [place], [address] Phosphoruson 02-21-2025 Phosphate [Mass/Vol] 3.3 mg/dL Normal 2.7-4.5 [facility] Comment on above: Performed By: #### L 100.0500, L501.2300, L501.5200, L500.2500 #### [facility] [address] [place], [address] Urine Cultureon 02-21-2025 URC Below infection leve l. Mixed Gram Pos Gram Neg Org Carrie Count 1000-10,000 MIXC Mixed contaminants. Submit a new specimen if indicated. Normal [facility] Comment on above: Performed By: #### L 500.2500, L100.0100 #### [facility] [address] [place], [address] Bilirubin, totalOrdered By: Kym Norton on 02-20-2025 Bilirubin [Mass/Vol] 0.43 mg/dL 0.00-1.30 [facility] CBC-Complete Blood Cnt No Di ffon 02-20-2025 Erythrocyte distribution width (RBC) [Ratio] 14.4 % Normal 11.6-14.6 [facility] Comment on above: Performed By: #### L 500.2500, L100.0100 #### [facility] [address] [place], [address] Hematocrit (Bld) [Volume fraction] 39.2 % Normal 37-47 [facility] Comment on above: Performed By: #### L 500.2500, L100.0100 #### [facility] [address] [place], [address] Hemoglobin (Bld) [Mass/Vol] 12.4 g/dL Normal 12.0-15.0 [facility] Comment on above: Performed By: #### L 500.2500, L100.0100 #### [facility] [address] [place], [address] MCH (RBC) [Entitic mass] 31.2 pg Normal 27.0-32.0 [facility] Comment on above: Performed By: #### L 500.2500, L100.0100 #### [facility] [address] [place], [address] MCHC (RBC) [Mass/Vol] 31.6 g/dL Low 32-36 [facility] Comment on above: Performed By: #### L 500.2500, L100.0100 #### [facility] [address] [place], [address] MCV (RBC) [Entitic vol] 98.7 fL Normal 81-99 [facility] Comment on above: Performed By: #### L 500.2500, L100.0100 #### [facility] [address] [place], [address] Platelet mean volume (Bld) [Entitic vol] 11.2 fL Normal 6.2-12.0 [facility] Comment on above: Performed By: #### L 500.2500, L100.0100 #### [facility] [address] [place], [address] Platelets (Bld) [#/Vol] 223 10*3/uL Normal 150-450 [facility] Comment on above: Performed By: #### L 500.2500, L100.0100 #### [facility] [address] [place], [address] RBC (Bld) [#/Vol] 3.97 10*6/uL Low 4.2-5.4 [facility] Comment on above: Performed By: #### L 500.2500, L100.0100 #### [facility] [address] [place], [address] RDW SD 52.0 fl High 35.1-43.9 [facility] Comment on above: Performed By: #### L 500.2500, L100.0100 #### [facility] [address] [place], [address] WBC (Bld) [#/Vol] 8.2 10*3/uL Normal 4.4-11.0 [facility] Comment on above: Performed By: #### L 500.2500, L100.0100 #### [facility] [address] [place], [address] CTA Chest W/WO Contraston CTA Chest W/WO Contrast [facility] [address] [place] [address] CTA Chest W/WO Contrast MR#: [id number] Acct: [id number] Name: LISA LUCERO Rep #: [id number] : 1955 F 69 From: Rustam Drummond MD PCP: Dr. Phuc Martines DO Status: ADM IN Study: CTA Chest W/WO Contrast Date of Exam: 02/20/25 Exam# [id number] Ordering Dr: Claudia Valerio DO EXAM: CT Angiography Chest Without and With Intravenous Contrast CLINICAL INDICATION: HYPOXIA TECHNIQUE: Axial computed tomographic angiography images of the chest without and with intravenous contrast. This CT exam was performed using one or more of the following dose reduction techniques: automated exposure control, adjustment of the mA and/or kV according to patient size, and/or use of iterative reconstruction technique. MIP reconstructed images were created and reviewed. COMPARISON: No relevant prior studies available. FINDINGS: PULMONARY ARTERIES: Unremarkable. No pulmonary embolism. AORTA: No acute findings. No thoracic aortic aneurysm. LUNGS AND PLEURAL SPACES: Lung emphysema/COPD with bibasilar atelectasis or scarring and bilateral apical scarring, some of which has of the nodular configuration. Repeat CT in 6 months is recommended. No mass. No significant effusion. No pneumothorax. HEART: Unremarkable. No cardiomegaly. No significant pericardial effusion. No evidence of RV dysfunction. BONES/JOINTS: No acute fracture. No dislocation. SOFT TISSUES: Unremarkable. LYMPH NODES: Unremarkable. No enlarged lymph nodes. CT/CTA Chest W/WO Contrast IMPRESSION: 1. No pulmonary embolism. 2. Lung emphysema/COPD with bibasilar atelectasis or scarring and bilateral apical scarring, some of which has of the nodular configuration. Repeat CT in 6 months is recommended. Reading Location: [facility] CC: Dr. Phuc Martines, DO; Dr. Claudia Valerio DO Personal Lines Account Manager: Signed Normal [facility] Calculated very low density lipoprotein (VLDL) cholesterol measurementOrdered By: Kym Norton on 02-20-2025 Calculated very low density lipoprotein (VLDL) cholesterol measurement 12 mg/dL 5-40 [facility] VLDL Cholesterol 12 mg/dL 5-40 [facility] Comprehensive Metabolic Prof ilon 02-20-2025 Albumin [Mass/Vol] 3.8 g/dL Normal 3.4-4.8 [facility] Comment on above: Performed By: #### L 500.2500, L100.0100 #### [facility] [address] [facility], [address] Albumin/Globulin [Mass ratio] 1.2 {ratio} Normal 0.9-2.4 [facility] Comment on above: Performed By: #### L 500.2500, L100.0100 #### [facility] [address] [place], [address] ALK PHOS 72 U/L Normal 35-104 [facility] Comment on above: Performed By: #### L 500.2500, L100.0100 #### [facility] [address] [place], [address] ALT [Catalytic activity/Vol] 42 U/L High <=34 [facility] Comment on above: Performed By: #### L 500.2500, L100.0100 #### [facility] [address] [place], [address] AST [Catalytic activity/Vol] 27 U/L Normal <=31 [facility] Comment on above: Performed By: #### L 500.2500, L100.0100 #### [facility] [address] [place], [address] Bilirubin [Mass/Vol] 0.43 mg/dL Normal 0.00-1.30 [facility] Comment on above: Performed By: #### L 500.2500, L100.0100 #### [facility] [address] [place], [address] BUN/CRE 30.9 RATIO High 10-20 [facility] Comment on above: Performed By: #### L 500.2500, L100.0100 #### [facility] [address] [place], [address] Calcium [Mass/Vol] 8.9 mg/dL Normal 7.6-11.0 [facility] Comment on above: Performed By: #### L 500.2500, L100.0100 #### [facility] [address] [place], [address] Chloride [Moles/Vol] 95 mmol/L Low 98-108 [facility] Comment on above: Performed By: #### L 500.2500, L100.0100 #### [facility] [address] [place], [address] CO2 [Moles/Vol] 34.3 mmol/L High 21.0-32.0 [facility] Comment on above: Performed By: #### L 500.2500, L100.0100 #### [facility] [address] [place], [address] Creatinine [Mass/Vol] 0.56 mg/dL Low 0.70-1.20 [facility] Comment on above: Performed By: #### L 500.2500, L100.0100 #### [facility] [address] [place], [address] ECRCL 86.85 ml/min Normal 50-250 [facility] Comment on above: Performed By: #### L 500.2500, L100.0100 #### [facility] [address] [place], [address] GAP 13 Normal 5-15 [facility] Comment on above: Performed By: #### L 500.2500, L100.0100 #### [facility] [address] [place], [address] GFR/1.73 sq M.predicted among non-blacks MDRD (S/P/Bld) [Vol rate/Area] 100 mL/min/{1.73_m2} Normal >60 [facility] Comment on above: Result Comment: mL/m in/1.73m2 CKD-EPI Creatinine Equation (2020) Performed By: #### L 500.2500, L100.0100 #### [facility] [address] [place], [address] Globulin (S) [Mass/Vol] 3.2 g/dL Normal 2.2-4.2 [facility] Comment on above: Performed By: #### L 500.2500, L100.0100 #### [facility] [address] [place], [address] Glucose [Mass/Vol] 141 mg/dL High 70-99 [facility] Comment on above: Performed By: #### L 500.2500, L100.0100 #### [facility] [address] [place], [address] Potassium [Moles/Vol] 3.8 mmol/L Normal 3.3-5.1 [facility] Comment on above: Result Comment: Hemo lysis present, Results??could be affected. ?? Performed By: #### L 500.2500, L100.0100 #### [facility] [address] [place], [address] Sodium [Moles/Vol] 142 mmol/L Normal 133-145 [facility] Comment on above: Performed By: #### L 500.2500, L100.0100 #### [facility] [address] [place], [address] T PROT 7.0 g/dL Normal 5.9-8.4 [facility] Comment on above: Performed By: #### L 500.2500, L100.0100 #### [facility] [address] [place], [address] Urea nitrogen [Mass/Vol] 17 mg/dL Normal 4-19 [facility] Comment on above: Performed By: #### L 500.2500, L100.0100 #### [facility] [address] [place], [address] Echocardiogram study reportO rdered By: Mercy Purvis on 02-20-2025 Study report [facility] [address] [place] [address] Echo Complete W/ Contrast 02/20/25 1104 MR#: [id number] Acct: [id number] Name: LISA LUCERO Rep #:[id number] : 1955 69 From: Mercy Purvis MD Attending Dr: DO Esperanza Romero tatus: ADM IN Ordering Dr: Kym Norton MD Date: Location: U Sex: F C Admitted: 02/19/25 Reason For Study Reason For Study: CHF Procedure This was a 2D Doppler, Color Flow transthoracic echocardiogram. The study was technically difficult. Contrast injection was performed. Exam performed portable in patient room. Left Ventricle Normal left ventricular thickness. Borderline LV systolic function. Estimated LVEF 45-50%. Unable to assess diastolic dysfunction due to arrhythmia. Right Ventricle Normal RV size. Moderate global right ventricular systolic dysfunction. Atria There is mild biatrial dilatation. Mitral Valve Moderate (2+) eccentric mitral valve insufficiency. Tricuspid Valve Mild tricuspid valve insufficiency. Right ventricular systolic pressure estimated to be 53 mmHg. Aortic Valve Aortic sclerosis, no stenosis. Pulmonic Valve The pulmonic valve is not well visualized. Great Vessels Normal sized aortic root. Pericardium/Pleural No pericardial effusion. Medication Diluted definity 4ml given slow IV push to enhance endocardial definition. MMode/2D Measurements & Calculations LVIDd: 5.0 cm IVSd: 0.96 cm Ao root diam: 3.5 cm LVIDs: 3.4 cm LVPWd: 0.95 cm RVDd: 3.8 cm FS: 32.1 % ____ LAV(MOD-bp): 76.0 ml LVAd ap4: 41.2 cm2 SV(MOD-sp4): 81.0 ml LAV(MOD-bp) Indexed: 34.6 ml/m2 LVLd ap4: 8.2 cm SI(MOD-sp4): 36.9 ml/m2 LAV(MOD-sp2): 79.1 ml EDV(MOD-sp4): 176.2 ml LAV(MOD-sp4): 69.5 ml EDV(sp4-el): 176.5 ml LVAs ap4: 28.2 cm2 LVLs ap4: 7.1 cm ESV(MOD-sp4): 95.2 ml ESV(sp4-el): 94.3 ml EF(MOD-sp4): 46.0 % EF(sp4-el): 46.6 % SV(sp4-el): 82.2 ml LA A4 area: 23.1 cm2 LA dimension(2D): 4.4 cm RA A4 area: 22.2 cm2 Doppler Measurements & Calculations MV E max kenneth: 120.2 cm/sec MV V2 max: 131.0 cm/sec Ao V2 max: 174.1 cm/sec MV max P.9 mmHg Ao max P.2 mmHg MV V2 mean: 88.3 cm/sec Ao V2 mean: 122.7 cm/sec MV mean P.7 mmHg Ao mean P.9 mmHg MV V2 VTI: 27.4 cm Ao V2 VTI: 33.7 cm AV (velocity ratio): 0.66 LV V1 max: 120.9 cm/sec MR max kenneth: 475.5 cm/sec TR max kenneth: 307.8 cm/sec LV V1 max P.0 mmHg MR max P.5 mmHg TR max P.9 mmHg LV V1 mean P.5 mmHg MR mean kenneth: 345.4 cm/sec LV V1 mean: 86.3 cm/sec MR mean P.6 mmHg LV V1 VTI: 22.2 cm MR VTI: 148.2 cm ECHO/Echo Complete W/ Contrast Interpretation Summary Borderline LV systolic function. Estimated LVEF 45-50%. Moderate global right ventricular systolic dysfunction. There is mild biatrial dilatation. Moderate (2+) eccentric mitral valve insufficiency. Mild tricuspid valve insufficiency. Right ventricular systolic pressure estimated to be 53 mmHg. The study was technically difficult. Ordering Physician: Kym Norton Performed By: Prieto Mcbride RCS 02/20/25 1156 Date _ Mercy Purvis MD CC: Dr. Phuc Martines DO; Dr. Claudia Valerio DO; Dr. Kym Norton MD ~ Date Dictated: 02/20/25 1104 Date Transcribed: 02/20/25 1156 Personal Lines Account Manager: Signed [facility] Work Phone: LDL calc ser/plasOrdered By: Kym Norton on 02-20-2025 Cholesterol in LDL [Mass/Vol] 101 mg/dL [facility] Comment on above: Kdvazugctx=619-015 m g/dL & Higher Lrlg=847 mg/dL or greater LDL Cholesterol, Calculated 101 mg/dL [facility] Comment on above: Pkocsskkbx=270-142 m g/dL & Higher Yizd=784 mg/dL or greater Laboratory - Chemistry and C hemistry - challengeOrdered By: Kym Norton on 02-20-2025 AST [Catalytic activity/Vol] 27 U/L <32 [facility] Lipid Profileon 02-20-2025 CHOL:HDL 2.63 Normal [facility] Comment on above: Performed By: #### L 500.2500, L100.0100 #### [facility] [address] [place], [address] Cholesterol [Mass/Vol] 183 mg/dL Normal <=200 [facility] Comment on above: Result Comment: Chol esterol level, Desirable <200 mg/dL Borderline high cholesterol 200-239 mg/dL High cholesterol >=240 mg/dL Recommendations of the NCEP Adult Treatment Panel for the following risk-cutoff thresholds for the [place] population. Performed By: #### L 500.2500, L100.0100 #### [facility] [address] [place], [address] Cholesterol in HDL [Mass/Vol] 70 mg/dL Normal [facility] Comment on above: Result Comment: Monika onal Cholesterol Education Program (NCEP) guidelines: <40 mg/dL: Low HDL-cholesterol (major risk factor for CHD) >= 60 mg/dL: High HDL-cholesterol (negative risk factor for CHD) HDL-cholesterol is affected by a number of factors, e.g. smoking, exercise, hormones, sex and age. Performed By: #### L 500.2500, L100.0100 #### [facility] [address] [place], [address] Cholesterol in LDL [Mass/Vol] 101 mg/dL Normal [facility] Comment on above: Result Comment: Bord thzlqm=146-822 mg/dL Higher Bjbh=254 mg/dL or greater Performed By: #### L 500.2500, L100.0100 #### [facility] [address] [place], [address] Cholesterol in VLDL [Mass/Vol] 12 mg/dL Normal 5-40 [facility] Comment on above: Performed By: #### L 500.2500, L100.0100 #### [facility] [address] [place], [address] Triglyceride [Mass/Vol] 61 mg/dL Normal [facility] Comment on above: Result Comment: The drugs N-Acetylcysteine and Metamizole may falsely depress this assay. Normal range: <150 mg/dL Borderline High: 150-199 mg/dL High: 200-499 mg/dL Very High: >500 mg/dL Performed By: #### L 500.2500, L100.0100 #### [facility] [address] [place], [address] Magnesiumon 02-20-2025 Magnesium [Mass/Vol] 1.9 mg/dL Normal 1.5-2.2 [facility] Comment on above: Order Comment: Comme nts: Add onto previous labs if possible Performed By: #### L 100.0500, L501.2300, L501.5200, L500.2500 #### [facility] [address] [place], [address] RESPIRATORY PANEL MOLECULARo n 02-20-2025 RP PANEL Normal Reference Ran ge = Not Detected Resp path DNA+RNA Pnl Resp RENETTA+probe Nucleic acid amplification test method ADENOVIRUS Not Detected INFLUENZA A Not Detected INFLUENZA A (SUBTYPE H1) Not Detected INFLUENZA A (SUBTYPE H3) Not Detected INFLUENZA B Not Detected HUMAN METAPHNEUMO Not Detected PARAINFLUENZA 1 Not Detected PARAINFLUENZA 2 Not Detected PARAINFLUENZA 3 Not Detected PARAINFLUENZA 4 Not Detected RHINOVIRUS Not Detected RSV A Not Detected RSV B Not Detected Normal [facility] Comment on above: Performed By: #### L 500.2500, L100.0100 #### [facility] [address] [place], [address] Respiratory pathogens DNA an d RNA panel RENETTA+probe (Resp)Ordered By: Claudia Valerio on 02-20-2025 Respiratory Panel (PCR) [facility] Respiratory pathogens detect ion panel by molecular detection methodOrdered By: Claudia Valerio on 02-20-2025 Respiratory pathogens DNA and RNA panel RENETTA+probe (Resp) [facility] Screening total cholesterol/ high density lipoprotein (HDL) cholesterol ratioOrdered By: Kym Norton on 02-20-2025 Cholesterol.total/Cho lesterol in HDL [Mass ratio] 2.63 {ratio} [facility] Serum globulin measurementOr dered By: Kym Norton on 02-20-2025 Globulin (S) [Mass/Vol] 3.2 g/dL 2.2-4.2 [facility] Serum or plasma alanine lindsey otransferase (ALT) measurementOrdered By: Kym Norton on 02-20-2025 ALT [Catalytic activity/Vol] 42 U/L High <35 [facility] Serum or plasma albumin tad urement (mass/volume)Ordered By: Kym Norton on 02-20-2025 Albumin [Mass/Vol] 3.8 g/dL 3.4-4.8 [facility] Serum or plasma albumin/glob ulin mass ratioOrdered By: Kym Norton on 02-20-2025 Albumin/Globulin [Mass ratio] 1.2 {ratio} 0.9-2.4 [facility] Serum or plasma alkaline zita sphatase measurementOrdered By: Kym Norton 02-20-2025 ALP [Catalytic activity/Vol] 72 U/L 35-104 [facility] Serum or plasma cholesterol in HDL measurement (mass/volume)Ordered By: Kym Norton on 02-20-2025 Cholesterol in HDL [Mass/Vol] 70 mg/dL >40 [facility] Comment on above: National Cholesterol Education Program (NCEP) guidelines:<40 mg/dL: Low HDL-cholesterol (major risk factor for CHD)>= 60 mg/dL: High HDL-cholesterol (negative risk factor for CHD)HDL-cholesterol is affected by a number of factors, e.g. smoking, exercise, hormones, sex and age. Serum or plasma cholesterol measurement (mass/volume)Ordered By: Kym Norton on 02-20-2025 Cholesterol [Mass/Vol] 183 mg/dL <201 [facility] Comment on above: Cholesterol level, D esirable <200 mg/dLBorderline high cholesterol 200-239 mg/dLHigh cholesterol >=240 mg/dLRecommendations of the NCEP Adult Treatment Panel for the following risk-cutoff thresholds for the [place] population. TSH DL <= 0.005 mIU/L QnOrde red By: Kym Norton on 02-20-2025 Thyroid Stimulating Hormone (TSH) 0.626 uIU/mL 0.300-4.20 0 [facility] TSH Qn 0.626 uIU/mL 0.300-4.20 0 [facility] Thyroid Stim Hormone (TSH)on 02-20-2025 TSH 0.626 uIU/mL Normal 0.300-4.20 0 [facility] Comment on above: Performed By: #### L 500.2500, L100.0100 #### [facility] [address] [place], [address] Total proteinOrdered By: Marychuy Norton on 02-20-2025 Protein [Mass/Vol] 7.0 g/dL 5.9-8.4 [facility] Triglycerides measurementOrd ered By: Kym Norton on 02-20-2025 Triglyceride [Mass/Vol] 61 mg/dL <199 [facility] Comment on above: The drugs N-Acetylcy steine and Metamizole may falsely depress this assay. Normal range: <150 mg/dLBorderline High: 150-199 mg/dLHigh: 200-499 mg/dLVery High: >500 mg/dL Activated partial thrombopla stin time (aPTT) in platelet poor plasma by coagulation aOrdered By: Linwood Ivy on 02-19-2025 aPTT Coag (PPP) [Time] 27.1 s 24.1-36.2 [facility] Bilirubin Test strip Ql (U)O rdered By: Linwood Ivy on 02-19-2025 Bilirubin Ql (U) Negative Negative [facility] Blood cultureOrdered By: Melissa Ivy on 02-19-2025 Bacteria identified Cx Nom (Bld) No growth in 5 days. [facility] Bacteria identified Cx Nom (Bld) No growth in 5 days. [facility] CBC W/Diff, Automatedon 01-27 Absolute Lymph 0.84 X10 3/uL Normal 0.83-4.51 [facility] Comment on above: Performed By: #### L 500.2500, L100.0100 #### [facility] [address] [place], [address] Absolute Neut 6.9 X10 3/uL Normal 2.0-7.7 [facility] Comment on above: Performed By: #### L 500.2500, L100.0100 #### [facility] [address] [place], [address] Basophils/100 WBC (Bld) 0.5 % Normal 0-1 [facility] Comment on above: Performed By: #### L 500.2500, L100.0100 #### [facility] [address] [place], [address] Eosinophils/100 WBC (Bld) 1.0 % Normal 0-5 [facility] Comment on above: Performed By: #### L 500.2500, L100.0100 #### [facility] [address] [place], [address] Erythrocyte distribution width (RBC) [Ratio] 14.6 % Normal 11.6-14.6 [facility] Comment on above: Performed By: #### L 500.2500, L100.0100 #### [facility] [address] [place], [address] Hematocrit (Bld) [Volume fraction] 41.2 % Normal 37-47 [facility] Comment on above: Performed By: #### L 500.2500, L100.0100 #### [facility] [address] [place], [address] Hemoglobin (Bld) [Mass/Vol] 13.0 g/dL Normal 12.0-15.0 [facility] Comment on above: Performed By: #### L 500.2500, L100.0100 #### [facility] [address] [place], [address] IG% 0.200 Normal 0.0-0.9 [facility] Comment on above: Result Comment: IG% - Immature Granulocytes (promyelocytes, myelocytes and metamyelocytes) > 1% indicates that a LEFT SHIFT is Present. Performed By: #### L 500.2500, L100.0100 #### [facility] [address] [place], [address] Lymphocytes/100 WBC (Bld) 9.8 % Low 19-41 [facility] Comment on above: Performed By: #### L 500.2500, L100.0100 #### [facility] [address] [place], [address] MCH (RBC) [Entitic mass] 31.3 pg Normal 27.0-32.0 [facility] Comment on above: Performed By: #### L 500.2500, L100.0100 #### [facility] [address] [place], [address] MCHC (RBC) [Mass/Vol] 31.6 g/dL Low 32-36 [facility] Comment on above: Performed By: #### L 500.2500, L100.0100 #### [facility] [address] [place], [address] MCV (RBC) [Entitic vol] 99.0 fL Normal 81-99 [facility] Comment on above: Performed By: #### L 500.2500, L100.0100 #### [facility] [address] [place], [address] Monocytes/100 WBC (Bld) 8.5 % Normal 0-10 [facility] Comment on above: Performed By: #### L 500.2500, L100.0100 #### [facility] [address] [place], [address] Neutrophils/100 WBC (Bld) 80.0 % High 47-70 [facility] Comment on above: Performed By: #### L 500.2500, L100.0100 #### [facility] [address] [place], [address] Nucleated RBC (Bld) [#/Vol] 0 10*3/uL Normal 0-5 [facility] Comment on above: Performed By: #### L 500.2500, L100.0100 #### [facility] [address] [place], [address] Platelet mean volume (Bld) [Entitic vol] 10.4 fL Normal 6.2-12.0 [facility] Comment on above: Performed By: #### L 500.2500, L100.0100 #### [facility] [address] [place], [address] Platelets (Bld) [#/Vol] 231 10*3/uL Normal 150-450 [facility] Comment on above: Performed By: #### L 500.2500, L100.0100 #### [facility] [address] [place], [address] RBC (Bld) [#/Vol] 4.16 10*6/uL Low 4.2-5.4 [facility] Comment on above: Performed By: #### L 500.2500, L100.0100 #### [facility] [address] [place], [address] RDW SD 53.2 fl High 35.1-43.9 [facility] Comment on above: Performed By: #### L 500.2500, L100.0100 #### [facility] [address] [place], [address] WBC (Bld) [#/Vol] 8.6 10*3/uL Normal 4.4-11.0 [facility] Comment on above: Performed By: #### L 500.2500, L100.0100 #### [facility] [address] [place], [address] Chest PA and Lateralon 02-19 Chest PA and Lateral [facility] Imaging Services [address] [place] [address] Chest PA and Lateral MR#: [id number] Acct: [id number] Name: ILSA LUCERO Rep #: [id number] : 1955 F 69 From: Dane Mccabe MD PCP: Dr. Phuc Martines DO Status: REG ER Study: Chest PA and Lateral Date of Exam: 02/19/25 Exam# [id number] Ordering Dr: Linwood Ivy DO PROCEDURE: CHEST PA AND LATERAL 02/19/2025 REASON FOR EXAM: SOB TECHNIQUE: Frontal and lateral views of the chest. FINDINGS: Lungs: Pulmonary venous congestive changes are suspected. No pneumonia. Pleura: No pleural effusions, thickening, or pneumothorax. Heart: Mild cardiac enlargement. Mediastinum/Elyssa: Unremarkable. Great vessels: Unremarkable. Bones/soft tissues: Unremarkable. RAD/Chest PA and Lateral IMPRESSION: Pulmonary venous congestive changes. Reading Location: [facility] CC: Dr. Phuc Martines DO; Dr. Linwood Ivy DO Personal Lines Account Manager: Signed Normal [facility] Comprehensive Metabolic Prof ilon 02-19-2025 Albumin [Mass/Vol] 4.0 g/dL Normal 3.4-4.8 [facility] Comment on above: Performed By: #### L 500.2500, L100.0100 #### [facility] [address] [place], [address] Albumin/Globulin [Mass ratio] 1.2 {ratio} Normal 0.9-2.4 [facility] Comment on above: Performed By: #### L 500.2500, L100.0100 #### [facility] [address] [place], [address] ALK PHOS 80 U/L Normal 35-104 [facility] Comment on above: Performed By: #### L 500.2500, L100.0100 #### [facility] [address] [place], [address] ALT [Catalytic activity/Vol] 45 U/L High <=34 [facility] Comment on above: Performed By: #### L 500.2500, L100.0100 #### [facility] [address] [place], [address] AST [Catalytic activity/Vol] 29 U/L Normal <=31 [facility] Comment on above: Performed By: #### L 500.2500, L100.0100 #### [facility] [address] [place], [address] Bilirubin [Mass/Vol] 0.69 mg/dL Normal 0.00-1.30 [facility] Comment on above: Performed By: #### L 500.2500, L100.0100 #### [facility] [address] [place], [address] BUN/CRE 27.9 RATIO High 10-20 [facility] Comment on above: Performed By: #### L 500.2500, L100.0100 #### [facility] [address] [place], [address] Calcium [Mass/Vol] 9.4 mg/dL Normal 7.6-11.0 [facility] Comment on above: Performed By: #### L 500.2500, L100.0100 #### [facility] [address] [place], [address] Chloride [Moles/Vol] 96 mmol/L Low 98-108 [facility] Comment on above: Performed By: #### L 500.2500, L100.0100 #### [facility] [address] [place], [address] CO2 [Moles/Vol] 34.4 mmol/L High 21.0-32.0 [facility] Comment on above: Performed By: #### L 500.2500, L100.0100 #### [facility] [address] [place], [address] Creatinine [Mass/Vol] 0.55 mg/dL Low 0.70-1.20 [facility] Comment on above: Performed By: #### L 500.2500, L100.0100 #### [facility] [address] [place], [address] ECRCL 87.97 ml/min Normal 50-250 [facility] Comment on above: Performed By: #### L 500.2500, L100.0100 #### [facility] [address] [place], [address] GAP 11 Normal 5-15 [facility] Comment on above: Performed By: #### L 500.2500, L100.0100 #### [facility] [address] [place], [address] GFR/1.73 sq M.predicted among non-blacks MDRD (S/P/Bld) [Vol rate/Area] 100 mL/min/{1.73_m2} Normal >60 [facility] Comment on above: Result Comment: mL/m in/1.73m2 CKD-EPI Creatinine Equation (2020) Performed By: #### L 500.2500, L100.0100 #### [facility] [address] [place], [address] Globulin (S) [Mass/Vol] 3.3 g/dL Normal 2.2-4.2 [facility] Comment on above: Performed By: #### L 500.2500, L100.0100 #### [facility] [address] [place], [address] Glucose [Mass/Vol] 116 mg/dL High 70-99 [facility] Comment on above: Performed By: #### L 500.2500, L100.0100 #### [facility] [address] [place], [address] Potassium [Moles/Vol] 3.6 mmol/L Normal 3.3-5.1 [facility] Comment on above: Performed By: #### L 500.2500, L100.0100 #### [facility] [address] [place], [address] Sodium [Moles/Vol] 142 mmol/L Normal 133-145 [facility] Comment on above: Performed By: #### L 500.2500, L100.0100 #### [facility] [address] [place], [address] T PROT 7.2 g/dL Normal 5.9-8.4 [facility] Comment on above: Performed By: #### L 500.2500, L100.0100 #### [facility] [address] [place], [address] Urea nitrogen [Mass/Vol] 15 mg/dL Normal 4-19 [facility] Comment on above: Performed By: #### L 500.2500, L100.0100 #### [facility] [address] [place], [address] Echo Complete W/ Contraston 02-19-2025 Echo Complete W/ Contrast [facility] [address] [place] [address] Echo Complete W/ Contrast 02/20/25 1104 MR#: [id number] Acct: [id number] Name: LISA LUCERO Rep #: [id number] : 1955 69 From: Mercy Purvis MD Attending Dr: Dr. Claudia Valerio, DO Status: ADM I N Ordering Dr: Kym Norton MD Date: 02/19/25 Location: U Sex: F C Admitted: 02/19/25 Reason For Study Reason For Study: CHF Procedure This was a 2D Doppler, Color Flow transthoracic echocardiogram. The study was technically difficult. Contrast injection was performed. Exam performed portable in patient room. Left Ventricle Normal left ventricular thickness. Borderline LV systolic function. Estimated LVEF 45-50%. Unable to assess diastolic dysfunction due to arrhythmia. Right Ventricle Normal RV size. Moderate global right ventricular systolic dysfunction. Atria There is mild biatrial dilatation. Mitral Valve Moderate (2+) eccentric mitral valve insufficiency. Tricuspid Valve Mild tricuspid valve insufficiency. Right ventricular systolic pressure estimated to be 53 mmHg. Aortic Valve Aortic sclerosis, no stenosis. Pulmonic Valve The pulmonic valve is not well visualized. Great Vessels Normal sized aortic root. Pericardium/Pleural No pericardial effusion. Medication Diluted definity 4ml given slow IV push to enhance endocardial definition. MMode/2D Measurements Calculations LVIDd: 5.0 cm IVSd: 0.96 cm Ao root diam: 3.5 cm LVIDs: 3.4 cm LVPWd: 0.95 cm RVDd: 3.8 cm FS: 32.1 % LAV(MOD-bp): 76.0 ml LVAd ap4: 41.2 cm2 SV(MOD-sp4): 81.0 ml LAV(MOD-bp) Indexed: 34.6 ml/m2 LVLd ap4: 8.2 cm SI(MOD-sp4): 36.9 ml/m2 LAV(MOD-sp2): 79.1 ml EDV(MOD-sp4): 176.2 ml LAV(MOD-sp4): 69.5 ml EDV(sp4-el): 176.5 ml LVAs ap4: 28.2 cm2 LVLs ap4: 7.1 cm ESV(MOD-sp4): 95.2 ml ESV(sp4-el): 94.3 ml EF(MOD-sp4): 46.0 % EF(sp4-el): 46.6 % SV(sp4-el): 82.2 ml LA A4 area: 23.1 cm2 LA dimension(2D): 4.4 cm RA A4 area: 22.2 cm2 Doppler Measurements Calculations MV E max kenneth: 120.2 cm/sec MV V2 max: 131.0 cm/sec Ao V2 max: 174.1 cm/sec MV max P.9 mmHg Ao max P.2 mmHg MV V2 mean: 88.3 cm/sec Ao V2 mean: 122.7 cm/sec MV mean P.7 mmHg Ao mean P.9 mmHg MV V2 VTI: 27.4 cm Ao V2 VTI: 33.7 cm AV (velocity ratio): 0.66 LV V1 max: 120.9 cm/sec MR max kenneth: 475.5 cm/sec TR max kenneth: 307.8 cm/sec LV V1 max P.0 mmHg MR max P.5 mmHg TR max P.9 mmHg LV V1 mean P.5 mmHg MR mean kenneth: 345.4 cm/sec LV V1 mean: 86.3 cm/sec MR mean P.6 mmHg LV V1 VTI: 22.2 cm MR VTI: 148.2 cm ECHO/Echo Complete W/ Contrast Interpretation Summary Borderline LV systolic function. Estimated LVEF 45-50%. Moderate global right ventricular systolic dysfunction. There is mild biatrial dilatation. Moderate (2+) eccentric mitral valve insufficiency. Mild tricuspid valve insufficiency. Right ventricular systolic pressure estimated to be 53 mmHg. The study was technically difficult. Ordering Physician: Kym Norton Performed By: Prieto Mcbride RCS 02/20/25 1156 Date Mercy Purvis MD CC: Dr. Phuc Martines DO; Dr. Claudia Valerio DO; Dr. Kym Norton MD Date Dictated: 02/20/25 1104 Date Transcribed: 02/20/25 1156 Personal Lines Account Manager: Signed Normal [facility] Emergency Department Summary on 02-19-2025 Emergency Department Summary [facility] Medical Records Department [address] [place] [address] Emergency Department Summary 02/19/25 MR#: [id number] Acct: [id number] Name: LISA LUCERO Rep #: [id number] : 1955 69 From: Linwood Ivy DO PCP: Dr. Phuc Martines DO Status:ADM IN Location: [facility] CAL142-[address] Linwood Ivy DO on 02/19/25 at 1540 Repeat EKG was performed given her heart rate had normalized to a rate of 96 bpm still shows atrial flutter with PVCs noted. Hospitalist was notified and updated on this. 02/19/25 1540 Cosigner Signature (if applicable): cc: Dr. Phuc Martines DO * Signed ADDENDUM by Dr. Linwood Ivy DO on 02/19/25 at 1534 Critical care time 37 minutes 02/19/25 1534 Cosigner Signature (if applicable): cc: Dr. Phuc Martines, * Signed HPI History of Present Illness Chief Complaint: Shortness of Breath Narrative Narrative: Patient is a 69-year-old female past medical history of COPD on 3 L at rest nasal cannula, hypertension who presents to the emergency department chief complaint shortness of breath. Patient states the past few days she has noted that she had worsening shortness of breath especially with exertion. Patient states that her bilateral lower extremities have been swelling over the last week as well. Patient states that she feels very short of breath with exertion and when trying to talk. Patient denies any sick contacts states that she is not coughing up significant mount of phlegm. [facility] Medical History COPD (chronic obstructive pulmonary disease) Home Medications ???Medication ???Instructions ???Recorded ???Last Taken ???Type Oxygen, Home [Home Oxygen] 2 - 4 lpm QHS 11/13/17 02/18/25 Hi story ascorbic acid (vitamin C) 500 mg 500 mg PO DAILY 11/13/17 02/18/25 History capsule albuterol sulfate 90 mcg/actuation 2 inh inhalation Q6H PRN shortne ss 02/19/25 Unknown History breath activated powder inhaler of breath amlodipine 10 mg tablet 10 mg PO DAILY 02/19/25 02/19/25 H istory fluticasone fur. 200 mcg-umeclid 1 ea inhalation DAILY 02/19/25 History 62.5 mcg-vilant 25 mcg inhalat.powder (Trelegy Ellipta) guaifenesin 1,200 mg tablet, 1,200 mg PO BID PRN cough 02/19/25 Unknown History extended release 12 hr (Mucus Relief ER) ipratropium 0.5 mg-albuterol 3 mg 3 ml inhalation Q6H PRN shortness 02/19/25 02/19/25 History (2.5 mg base)/3 mL nebulization of breath soln multivitamin (Daily Multi-Vitamin 1 tab PO DAILY 02/19/25 02/18/25 History tablet) sodium chloride 0.65 % nasal spray 1 spray intranasal BID PRN dry 0 02/19/25 Unknown History aerosol (Oxford Saline) nasal passages triamcinolone acetonide 0.5 % 1 applic topical BID PRN itching 0 02/19/25 Unknown History topical cream triamterene 37.5 1 cap PO DAILY 02/19/25 02/18/25 H istory mg-hydrochlorothiazide 25 mg capsule Allergy/AdvReac Type Severity Reaction Status Date / Time ibuprofen (From Advil) Allergy Mild Hives Verified 02/19/25 13:14 Surgical History Hx of inguinal herniorrhaphy Social History Smoking Status: Former smoker ROS ROS ED ROS Narrative Constitutional: Denies fevers, chills, headaches Eyes: Denies change in vision double vision blurry vision Cardiovascular: Denies chest pain or palpitations Respiratory: Complains of shortness of breath as noted above denies coughing Abdomen: Denies nausea vomit diarrhea : Denies urinary symptoms Neurological: Denies numbness, weakness, tingling Musculoskeletal: Denies back pain Skin: Denies any rashes or lesions EXAM Physical Exam Narrative Exam Narrative: General: Patient lying in bed resting comfortably did not appear to be in acute distress Head: Atraumatic, normocephalic Eyes: PERRL bilaterally, EOMI bilateral, no conjunctival injection noted Neck: Soft, supple, trachea midline Cardiovascular: Patient is tachycardic Respiratory: Diminished breath sounds bilaterally, patient does have increased work of breathing noted on exam conversational dyspnea noted Abdomen: Soft, nondistended Extremities: +5/5 strength noted in the bilateral upper and lower extremities, pedal edema noted on exam bilaterally Neurological: Patient follow commands and that she was at [facility] year is 2024 Skin: Warm, dry, intact no rashes or lesions noted Const Vital Signs: 02/19/25 12:52 02/19/25 13:11 02/19/25 13:13 Temperature 99.2 F H Temperature Source Oral Pulse Rate 116 H Respiratory Rate 20 H Respiratory Effort Short of Breath Respiratory Pattern Blood Pressure 120/106 H (more content not included)... Normal [facility] Epithelial cells.squamous LM Ql (Urine sed)Ordered By: Linwood Ivy on 02-19-2025 Epithelial cells.squamous LM.HPF (Urine sed) [#/Area] 0 /[HPF] 5-10 [facility] Glucose Ql (U)Ordered By: Fernandez Ivy on 02-19-2025 Urine Glucose (UA) Normal mg/dl Normal [facility] H AND P Exam - Hospitaliston 02-19-2025 H&P Exam - Hospitalist [facility] Medical Records Department [address] [place] [address] H P Exam - Hospitalist 02/19/25 1548 MR#: [id number] Acct: [id number] Name: LISA LUCERO Rep #: [id number] : 1955 69 From: Kym Norton MD PCP: Dr. Phuc Martines, DO Status:ADM IN Location: [place] [address] HPI - General General Date of Admission: 02/19/25 Date of Service: 02/19/25 Chief Complaint: Increase shortness of breath and lower extremity swelling HPI Narrative LISA LUCERO, is a 69-year-old female with a history of COPD on 3 L nasal cannula and hypertension who presented to [facility] ED 02/19/2025 with increased shortness of breath particularly on exertion for the past several days as well as increased bilateral lower extremity swelling this past week and conversational dyspnea. On arrival patient dropped down to 85% on 5 L of nasal cannula with respiratory rate up to 28, blood pressure 120/106 with a heart rate of 116 and temperature 99.2. CBC and BMP fairly benign however chest x-ray did report pulmonary venous congestive changes. Patient given IV Lasix. Patient also noted to be in what appeared to be A-fib versus flutter with variable block and was given 5 of IV Lopressor due to a heart rate in the 120s. Hospitalist contacted for admission for possible new onset heart failure. Patient evaluated with friend at bedside, patient reports her breathing has gotten worse over the past year and she had a lung cancer screening which showed inflammation that developed but then subsequently improved and she reports is being monitored but they were not sure what caused it. She also notes for the last 7 to 10 days she had increased swelling in her lower extremities with increasing shortness of breath on exertion, denies overt chest pain but sometimes when she lays on her left side will have a GIB feeling on the left side of her back, this happened 3 times over several months. Has a little bit of a dry cough but minimal, does have some nasal congestion and reports when she wakes up she has some pasty feeling on her tongue. Denies history of ROXY and reports she did a previous sleep study which was negative. Does endorse drinking several mixed drinks a day and estimates that it equals about 4 shots a day. She does not note any history of withdrawal symptoms. [facility] Medical History COPD (chronic obstructive pulmonary disease) Home Medications ???Medication ???Instructions ???Recorded ???Last Taken ???Type Oxygen, Home [Home Oxygen] 2 - 4 lpm QHS 11/13/17 02/18/25 Hi story ascorbic acid (vitamin C) 500 mg 500 mg PO DAILY 11/13/17 02/18/25 History capsule albuterol sulfate 90 mcg/actuation 2 inh inhalation Q6H PRN shortne ss 02/19/25 Unknown History breath activated powder inhaler of breath amlodipine 10 mg tablet 10 mg PO DAILY 02/19/25 02/19/25 H istory fluticasone fur. 200 mcg-umeclid 1 ea inhalation DAILY 02/19/25 History 62.5 mcg-vilant 25 mcg inhalat.powder (Trelegy Ellipta) guaifenesin 1,200 mg tablet, 1,200 mg PO BID PRN cough 02/19/25 Unknown History extended release 12 hr (Mucus Relief ER) ipratropium 0.5 mg-albuterol 3 mg 3 ml inhalation Q6H PRN shortness 02/19/25 02/19/25 History (2.5 mg base)/3 mL nebulization of breath soln multivitamin (Daily Multi-Vitamin 1 tab PO DAILY 02/19/25 02/18/25 History tablet) sodium chloride 0.65 % nasal spray 1 spray intranasal BID PRN dry 0 02/19/25 Unknown History aerosol (Oxford Saline) nasal passages triamcinolone acetonide 0.5 % 1 applic topical BID PRN itching 0 02/19/25 Unknown History topical cream triamterene 37.5 1 cap PO DAILY 02/19/25 02/18/25 H istory mg-hydrochlorothiazide 25 mg capsule Allergy/AdvReac Type Severity Reaction Status Date / Time ibuprofen (From Advil) Allergy Mild Hives Verified 02/19/25 13:14 Surgical History Hx of inguinal herniorrhaphy Social History Smoking Status: Former smoker ROS ROS Narrative General: Denies fever/chills HENT: Denies headache, has some chronic nasal congestion, denies sore throat EYES: Denies changes in vision Resp: Denies significant cough, occasional dry cough, has had increased shortness of breath over the past year but worse over the past week Cardiac: Denies chest pain, sometimes will have some left-sided back pain when she is laying there GI: Symptoms some left abdominal pain which she attributes to a known splenic cyst, denies changes in bowel, denies nausea/vomiting : Denies changes in urination Extremity: Increased swelling lower extremities over the past 7 to 10 days MSK: Denies weakness Neuro: Denies any numbness/tingling (more content not included)... Normal [facility] Influenza virus A and B and SARS-CoV-2 (COVID-19) and Respiratory syncytial virus RNAOrdered By: Linwood Ivy on 02-19-2025 SARS-CoV-2 (COVID-19) RNA RENETTA+probe Ql (Unsp spec) [facility] International normalized rat io (INR) calculationOrdered By: Linwood Ivy on 02-19-2025 INR Coag (Bld) [Relative time] 1.0 {INR} [facility] Ketones Test strip Ql (U)Ord ered By: Linwood Ivy on 02-19-2025 Ketones Ql (U) Negative Negative [facility] L499.0042on 02-19-2025 Trop T High Sen < 6 Normal <=14 [facility] Comment on above: Performed By: #### L 499.0042 #### [facility] [place], [address] L499.0043on 02-19-2025 Trop T High Sen < 6 Normal <=14 [facility] Comment on above: Performed By: #### L 499.0043 #### [facility] [address] [place], [address] L501.4021on 02-19-2025 Trop T High Sen < 6 Normal <=14 [facility] Comment on above: Performed By: #### L 500.2500, L100.0100 #### [facility] [address] [place], [address] L503.7505on 02-19-2025 Natriuretic peptide B (Bld) [Mass/Vol] 529 pg/mL Normal <=900 [facility] Comment on above: Result Comment: Hear t Failure Unlikely: < 300 pg/mL Heart Failure Likely < 50 Years: > 450 pg/mL 50-75 Years: > 900 pg/mL >75 Years: > 1800 pg/mL Performed By: #### L 500.2500, L100.0100 #### [facility] [address] [place], [address] Lactic Acidon 02-19-2025 Lactate [Moles/Vol] 1.5 mmol/L Normal 0.0-2.0 [facility] Comment on above: Order Comment: Y Performed By: #### L 500.2500, L100.0100 #### [facility] [address] [place], [address] Lactic acid measurementOrder ed By: Linwood Ivy on 02-19-2025 Lactate [Moles/Vol] 1.5 mmol/L 0.0-2.0 [facility] M100.678on 02-19-2025 M100.678 Pending SARS-CoV-2 (COVID 19) Negative INFLUENZA A Negative INFLUENZA B Negative RSV PCR Negative Normal [facility] Comment on above: Performed By: #### L 500.2500, L100.0100 #### [facility] [address] [place], [address] Microscopic analysis of urin e for red blood cells (RBC)Ordered By: Linwood Ivy on 02-19-2025 Microscopic analysis of urine for red blood cells (RBC) 0 SEEN /hpf 0-5 [facility] Urine RBC 0 SEEN /hpf 0-5 [facility] Mucus LM Ql (Urine sed)Order ed By: Linwood Ivy on 02-19-2025 Mucus Ql (Urine sed) 0 SEEN /hpf [facility] Natriuretic peptide.B prohor gonzalo N-Terminal [Mass/Vol]Ordered By: Linwood Ivy on 02-19-2025 Natriuretic peptide B (Bld) [Mass/Vol] 529 pg/mL <900 [facility] Comment on above: Heart Failure Unlike ly: < 300 pg/mLHeart Failure Likely< 50 Years: > 450 pg/mL50-75 Years: > 900 pg/mL>75 Years: > 1800 pg/mL Natriuretic peptide.B prohor gonzalo N-Terminal [Mass/volume] in Serum or PlasmaOrdered By: Linwood Ivy on 02-19-2025 Natriuretic peptide.B prohormone N-Terminal [Mass/Vol] 529 pg/mL <900 [facility] Comment on above: Heart Failure Unlike ly: < 300 pg/mLHeart Failure Likely< 50 Years: > 450 pg/mL50-75 Years: > 900 pg/mL>75 Years: > 1800 pg/mL Nitrite Test strip Ql (U)Ord ered By: Linwood Ivy on 02-19-2025 Nitrite Ql (U) Negative Negative [facility] Partial Thromboplast Timeon 02-19-2025 aPTT Coag (Bld) [Time] 27.1 s Normal 24.1-36.2 [facility] Comment on above: Performed By: #### L 500.2500, L100.0100 #### [facility] [place] [address], [address] Protein Test strip Ql (U)Ord ered By: Linwood Ivy on 02-19-2025 Protein Ql (U) Negative Negative [facility] Prothrombin Time w/INRon INR Coag (PPP) [Relative time] 1.0 {INR} Normal [facility] Comment on above: Performed By: #### L 500.2500, L100.0100 #### [facility] [address] [place], [address] PT Coag (PPP) [Time] 13.4 s Normal 11.7-14.9 [facility] Comment on above: Performed By: #### L 500.2500, L100.0100 #### [facility] [address] [place], [address] Prothrombin timeOrdered By: Linwood Ivy on 02-19-2025 PT Coag (PPP) [Time] 13.4 s 11.7-14.9 [facility] Squamous epithelial cells de tection in urine sediment by light microscopyOrdered By: Linwood Ivy on 02-19-2025 Epithelial cells.squamous LM Ql (Urine sed) 0-5 SEEN /hpf 5-10 [facility] Troponin T.cardiac High sens itivity method [Mass/Vol]Ordered By: Linwood Ivy on 02-19-2025 Troponin T High Sensitivity 4 Hour < 6 ng/L <14 [facility] Troponin T High Sensitivity 2 Hour < 6 ng/L <14 [facility] Troponin T High Sensitivity < 6 ng/L <14 [facility] Troponin T.cardiac [Mass/vol ume] in Serum or Plasma by High sensitivity methodOrdered By: Linwood Ivy on 02-19-2025 Troponin T.cardiac High sensitivity method [Mass/Vol] < 6 ng/L <14 [facility] Troponin T.cardiac High sensitivity method [Mass/Vol] < 6 ng/L <14 [facility] Troponin T.cardiac High sensitivity method [Mass/Vol] < 6 ng/L <14 [facility] Urinalysis, Completeon 02-19 EPI,SQUAMOUS 0-5 SEEN Normal 5-10 [facility] Comment on above: Order Comment: Blood cultures x2 from two different sites Performed By: #### L 500.2500, L100.0100 #### [facility] [address] [place], [address] WBC 0-5 SEEN Normal 0-5 [facility] Comment on above: Order Comment: Blood cultures x2 from two different sites Performed By: #### L 500.2500, L100.0100 #### [facility] [address] [place], [address] BACTERIA 0 SEEN Normal None Seen [facility] Comment on above: Order Comment: Blood cultures x2 from two different sites Performed By: #### L 500.2500, L100.0100 #### [facility] [address] [place], [address] Mucus Ql (Urine sed) 0 SEEN Normal [facility] Comment on above: Order Comment: Blood cultures x2 from two different sites Performed By: #### L 500.2500, L100.0100 #### [facility] [address] [place], [address] RBC 0 SEEN Normal 0-5 [facility] Comment on above: Order Comment: Blood cultures x2 from two different sites Performed By: #### L 500.2500, L100.0100 #### [facility] [address] [place], [address] Urine blood detectionOrdered By: Linwood Ivy on 02-19-2025 Urine Occult Blood Negative Negative [facility] Urine clarityOrdered By: Melissa Ivy on 02-19-2025 Clarity (U) Clear Clear [facility] Urine color determinationOrd ered By: Linwood Ivy on 02-19-2025 Color (U) Straw Yellow [facility] Urine cultureOrdered By: Melissa Ivy on 02-19-2025 Bacteria identified Cx Nom (U) Mixed Gram Pos & Gram Neg Org Abnormal [facility] Urine glucose detectionOrder ed By: Linwood Ivy on 02-19-2025 Glucose Ql (U) Normal mg/dl Normal [facility] Urine leukocyte esterase det ection by dipstickOrdered By: Linwood Ivy on 02-19-2025 Leukocyte esterase Test strip Ql (U) 25 /ul High Negative [facility] Urine pHOrdered By: Linwood cole on 02-19-2025 pH (U) 6.0 [pH] 5.0 - 8.0 [facility] Urine sediment bacteria coun t by microscopy (number/high power field)Ordered By: Linwood Ivy on 02-19-2025 Bacteria LM.HPF (Urine sed) [#/Area] 0 /[HPF] None Seen [facility] Urine specific gravity measu rementOrdered By: Linwood Ivy on 02-19-2025 Specific gravity (U) [Rel density] 1.010 1.002-1.03 0 [facility] Urine urobilinogen measureme ntOrdered By: Linwood Ivy on 02-19-2025 Urobilinogen Ql (U) Normal mg/dl Normal [facility] Urobilinogen Ql (U)Ordered B y: Linwood Ivy on 02-19-2025 Urine Urobilinogen Normal mg/dl Normal [facility] White blood cell countOrdere d By: Linwood Ivy on 02-19-2025 Urine WBC 0-5 SEEN /hpf 0-5 [facility] White blood cell count 0-5 SEEN /hpf 0-5 [facility] aPTT Coag (PPP) [Time]Ordere d By: Linwood Ivy on 02-19-2025 aPTT Coag (Bld) [Time] 27.1 s 24.1-36.2 [facility] CNOVon 01-25-2025 CNOV Office Visit (PULMWS ) LISA LUCERO ([id number]) 1955 F Date Time Provider Department 01/25/25 11:00 AM MARICRUZ CAMP During your visit today, we recorded the following information about you: Pulse Blood pressure Weight Height 88/minute 131/76 120.4 kg 1.626 m Maricruz Camp APRN.CULTURE MANAGER 01/25/2025 12:28 PM Signed Chief Complaint: 3 month follow-up from LDCT scan dated 10/19/2024 for LUNG RADS Category 0 finding of new RML consolidation and MAKAYLA nodule opacities. . History of Present Illness: Lisa Lucero is a 69 year old female who is presenting today for pulmonary nodule follow-up. Nodule was found through lung cancer screening on LDCT. Patient is a former smoker with a 38 pack year history. Quit smoking in 2008. Since the patient's last visit the patient has not had new medical issues or hospitalizations. No recent respiratory infections/pneumonia. The patient does not require assistance with normal activities of daily living. Modified Medical Research [place] Dyspnea Scale (MMRC) On level ground I walk slower than people of the same age because of breathlessness, or have to stop for breath when walking at my own pace 2 Patient has SOB with their daily activity. Shortness of breath is better since increased dose of Trelegy. No wheezing or dyspnea. Patient denies feeling of chest tightness/congestion in the chest. Patient does not have a new or concerning cough, and denies hemoptysis. Patient does not have a chronic daily cough. Doesn't have much of a cough, has throat clearing. Denies regular or recent fevers/chills. Patient does not have any significant unintentional weight loss. Patient denies having any respiratory infections or COVID-19 in the past few months. Last 12 Encounter Wt Readings: Date: Wt: 01/20/2025 119.7 kg (264 lb) 12/25/2024 119.1 kg (262 lb 9.6 oz) 10/19/2024 117.8 kg (259 lb 9.6 oz) 06/26/2024 115.2 kg (254 lb) 04/26/2024 118 kg (260 lb 2.3 oz) 03/13/2024 117 kg (258 lb) 01/29/2024 118.4 kg (261 lb 0.4 oz) 09/17/2023 120.4 kg (265 lb 6.4 oz) 08/14/2023 120.2 kg (265 lb) 06/13/2023 120.7 kg (266 lb) 02/06/2023 119.3 kg (263 lb) 09/28/2022 116.3 kg (256 lb 6.4 oz) Past Medical History: PAST MEDICAL HISTORY Diagnosis Date Chronic hypoxemic respiratory failure (HCC) COPD (chronic obstructive pulmonary disease) (HCC) 02/03/2010 Coronary artery disease No NE, CHF. No heart cath. Diverticulosis of colon (without mention of hemorrhage) Essential hypertension, benign Fibrocystic breast Former smoker Internal hemorrhoids without mention of complication Leiomyoma of uterus, unspecified Obstructive sleep apnea Mild. Not prescribed CPAP, only 2L nasal O2. Surgical Hx: PAST SURGICAL HISTORY Procedure Laterality Date BREAST LUMPECTOMY HX Right 1997 COLONOSCOPY FLX DX W/COLLJ SPEC WHEN PFRMD 08/27/08 repeat due 2017 COLONOSCOPY FLX DX W/COLLJ SPEC WHEN PFRMD 09/10/2018 Colonoscopy - due 2027 INGUINAL HERNIA REPAIR HX 1975 bilateral PAST SURGICAL HISTORY OF hemangioma left cheek REMOVAL OF IMPACTED TOOTH - COMPLETELY BONY WISDOM TEETH Family Hx: FAMILY HISTORY Problem Relation Age of Onset Cancer Father BLADDER COPD Mother other (Alcoholic) Mother associated with sepsis. Hypertension Maternal Grandmother Thyroid Maternal Grandmother Allergies: ALLERGIES Allergen Reactions Aleve [Naproxen] Hives Hives, edema of hands within 1 hour of use Social History Tobacco Use: Types: Cigarettes Review Of Systems: See HPI for ROS PHYSICAL EXAMINATION: BP 131/76 Pulse 88 Ht 5' 4 (1.63m) Wt 265 lb 6.4 oz (120.4kg) SpO2 92% BMI 45.53 kg/(m2). General appearance: well appearing, in no acute distress, and alert Skin: skin color, texture, turgor normal, no rashes or lesions Nose/Sinuses: Negative Oropharynx: Lips, mucosa, and tongue normal, teeth and gums normal, oropharynx normal Neck: Supple, no adenopathy; thyroid symmetric, normal size Respiratory: lungs clear to auscultation no wheezing or rhonchi, portable oxygen on with NC. Cardiovascular: Negative. RRR without murmur, gallop, or rubs. No ectopy Musculoskeletal: Extremities normal. No deformities, edema, or skin discoloration. Neuro: Oriented X 3 Data Review I have visually reviewed imaging and testing below CT imaging done today was reviewed and analyzed independently by practitioner and awaiting radiology review. CT was compared to prior CT chest. Previously noted opacities in MAKAYLA, RML and RLL have resolved. All other nodules are stable dating back to 08/29/2022. Prior PFTS: SPIROMETRY BASELINE ONLY ([id number]) - ordered on 03/16/22 No textual results for order. SPIROMETRY BASELINE ONLY ([id number]) - ordered on 03/31/20 [facility] [address] [place] [address] Test Date: (more content not included)... Normal [facility] CT LUNG FOLLOWUP WO IVCONon 01-25-2025 CT LUNG FOLLOWUP WO IVCON * * *Final Report* * * DATE OF EXAM: Jan 25 2025 11:06AM [facility] 0561 - CT LUNG FOLLOWUP WO IVCON / PROCEDURE REASON: Lung nodule, < 6mm, high cancer risk * * * * Physician Interpretation * * * * EXAMINATION: CT LUNG FOLLOWUP WO IVCON CLINICAL HISTORY: Lung nodules Technique: Spiral CT acquisition of the chest from the thoracic inlet to the upper abdomen without contrast. MQ: CTLCS_6 Followup LDCT Patient characteristics: * Rdft-on-Sxumz: 1955; Age at exam: 69 years * Gender: Female * Lung Disease: Asymptomatic (no signs or symptoms of lung disease) * Number of Pack Years: 38 * Current smoker (=0) or Number of Years since Quit: 15 * Ordering provider and NPI: MARICRUZ CAMP [id number] * Interpreting radiologist and NPI: Nicole [id number] Exam acquisition parameters: * Exam Date: 01/25/2025 11:06 AM * Site: [facility] * * CT System Ms Sql Server Developer: Siemens * CT System Model: Sensation * Tube Current-Time (mA-sec): 48 * Peak Voltage (kV): 120V * Scan Time (sec): 11.79 * Scan Volume (z-length, cm): -31.56 * Pitch: 0.75 * Slice Thickness (mm): 1.5 * CT Dose-Length Product: 148 mGy*cm * CT Dose Index: 3.73mGy * CT Dose Reduction Method: Automated exposure control(AEC) and iterative recon COMPARISON: Prior lung screen dated 10/19/2024 RESULT: Are nodules present? Yes, 1-5 nodules Lung nodule comments: 11 mm right apical nodule (41) unchanged. 6 mm subpleural right lower lobe nodule (190) unchanged. 12 mm left upper lobe anterior nodule (146) unchanged. Previously seen 8 mm left upper lobe nodule and surrounding ill-defined nodular opacities have disappeared. Previously seen nodular consolidation in the right middle lobe has mostly disappeared with minimal residual inferior scarlike opacity (217) unchanged. Other findings: Mild coronary calcifications. Mild degenerative changes of the thoracic spine. Diffuse bronchial thickening, severe upper lobe predominant emphysema, mosaic attenuation from chronic small airway inflammation, and scattered lower linear opacities likely atelectasis. IMPRESSION: LungRADS category: 3 LungRADS modifier: None LungRADS 0 reason: n/a Recommendations: Followup LDCT in 6 months Reference: [employer]. Lung CT Screening Reporting and Data System (Lung-RADS). Available at: [email or web address] [email or web address]/LungRADS Personal Lines Account Manager: PAT Transcribe Date/Time: Jan 25 2025 11:45A Dictated by : VIDAL PULLIAM MD This examination was interpreted and the report reviewed and electronically signed by: VIDAL PULLIAM MD on Jan 25 2025 11:51AM EST [id number] Normal [facility] CT Lung parenchyma WO contra ston 01-25-2025 IMPRESSION: LungRADS category: 3 LungRADS modifier: None LungRADS 0 reason: n/a Recommendations: Followup LDCT in 6 months Reference: [employer]. Lung CT Screening Reporting and Data System (Lung-RADS). Available at: [email or web address] [email or web address]/LungRADS Personal Lines Account Manager: PSCB Transcribe Date/Time: Jan 25 2025 11:45A Dictated by : VIDAL PULLIAM MD This examination was interpreted and the report reviewed and electronically signed by: VIDAL PULLIAM MD on Jan 25 2025 11:51AM [facility] DIVISION OF RADIOLOGY * * *Final Report* * * DATE OF EXAM: Jan 25 2025 11:06AM [facility] 0561 - CT LUNG FOLLOWUP [facility] / PROCEDURE REASON: Lung nodule, < 6mm, high cancer risk * * * * Physician Interpretation * * * * EXAMINATION: CT LUNG FOLLOWUP WO IVCON CLINICAL HISTORY: Lung nodules Technique: Spiral CT acquisition of the chest from the thoracic inlet to the upper abdomen without contrast. MQ: CTLCS_6 Followup LDCT Patient characteristics: * Oqco-yp-Oteyt: 1955; Age at exam: 69 years * Gender: Female * Lung Disease: Asymptomatic (no signs or symptoms of lung disease) * Number of Pack Years: 38 * Current smoker (=0) or Number of Years since Quit: 15 * Ordering provider and NPI: MARICRUZ CAMP [id number] * Interpreting radiologist and NPI: Nicole [id number] Exam acquisition parameters: * Exam Date: 01/25/2025 11:06 AM * Site: [facility] * * CT System Ms Sql Server Developer: Siemens * CT System Model: Sensation * Tube Current-Time (mA-sec): 48 * Peak Voltage (kV): 120V * Scan Time (sec): 11.79 * Scan Volume (z-length, cm): -31.56 * Pitch: 0.75 * Slice Thickness (mm): 1.5 * CT Dose-Length Product: 148 mGy*cm * CT Dose Index: 3.73mGy * CT Dose Reduction Method: Automated exposure control(AEC) and iterative recon COMPARISON: Prior lung screen dated 10/19/2024 RESULT: Are nodules present? Yes, 1-5 nodules Lung nodule comments: 11 mm right apical nodule (41) unchanged. 6 mm subpleural right lower lobe nodule (190) unchanged. 12 mm left upper lobe anterior nodule (146) unchanged. Previously seen 8 mm left upper lobe nodule and surrounding ill-defined nodular opacities have disappeared. Previously seen nodular consolidation in the right middle lobe has mostly disappeared with minimal residual inferior scarlike opacity (217) unchanged. Other findings: Mild coronary calcifications. Mild degenerative changes of the thoracic spine. Diffuse bronchial thickening, severe upper lobe predominant emphysema, mosaic attenuation from chronic small airway inflammation, and scattered lower linear opacities likely atelectasis. DIVISION OF RADIOLOGY Provider, [facility] - 01/25/2025 * * *Final Report* * * DATE OF EXAM: Jan 25 2025 11:06AM [facility] 0561 - CT LUNG FOLLOWUP [facility] / PROCEDURE REASON: Lung nodule, < 6mm, high cancer risk * * * * Physician Interpretation * * * * EXAMINATION: CT LUNG FOLLOWUP WO [facility] CLINICAL HISTORY: Lung nodules Technique: Spiral CT acquisition of the chest from the thoracic inlet to the upper abdomen without contrast. MQ: CTLCS_6 Followup LDCT Patient characteristics: * Nzzq-ah-Balov: 1955; Age at exam: 69 years * Gender: Female * Lung Disease: Asymptomatic (no signs or symptoms of lung disease) * Number of Pack Years: 38 * Current smoker (=0) or Number of Years since Quit: 15 * Ordering provider and NPI: MARICRUZ CAMP [id number] * Interpreting radiologist and NPI: Nicole [id number] Exam acquisition parameters: * Exam Date: 01/25/2025 11:06 AM * Site: [facility] * * CT System Ms Sql Server Developer: Siemens * CT System Model: Sensation * Tube Current-Time (mA-sec): 48 * Peak Voltage (kV): 120V * Scan Time (sec): 11.79 * Scan Volume (z-length, cm): -31.56 * Pitch: 0.75 * Slice Thickness (mm): 1.5 * CT Dose-Length Product: 148 mGy*cm * CT Dose Index: 3.73mGy * CT Dose Reduction Method: Automated exposure control(AEC) and iterative recon COMPARISON: Prior lung screen dated 10/19/2024 RESULT: Are nodules present? Yes, 1-5 nodules Lung nodule comments: 11 mm right apical nodule (41) unchanged. 6 mm subpleural right lower lobe nodule (190) unchanged. 12 mm left upper lobe anterior nodule (146) unchanged. Previously seen 8 mm left upper lobe nodule and surrounding ill-defined nodular opacities have disappeared. Previously seen nodular consolidation in the right middle lobe has mostly disappeared with minimal residual inferior scarlike opacity (217) unchanged. Other findings: Mild coronary calcifications. Mild degenerative changes of the thoracic spine. Diffuse bronchial thickening, severe upper lobe predominant emphysema, mosaic attenuation from chronic small airway inflammation, and scattered lower linear opacities likely atelectasis. IMPRESSION IMPRESSION: LungRADS category: 3 LungRADS modifier: None LungRADS 0 reason: n/a Recommendations: Followup LDCT in 6 months Reference: [employer]. Lung CT Screening Reporting and Data System (Lung-RADS). Available at: [email or web address] [email or web address]/LungRADS Personal Lines Account Manager: PAT Transcribe Date/Time: Jan 25 2025 11:45A Dictated by : VIDAL PULLIAM MD This examination was interpreted and the report reviewed and electronically signed by: VIDAL PULLIAM MD on Jan 25 2025 11:51AM EST [facility] Radiology Study observation (narrative) [facility] CT Lung parenchyma WO contra stOrdered By: [facility] Provider on 01-25-2025 [facility] CNOVon 01-20-2025 CNOV Office Visit (FAMPWS ) LISA LUCERO ([id number]) 1955 F Date Time Provider Department 01/20/25 3:00 PM [facility] FAMPWS During your visit today, we recorded the following information about you: Temperature Pulse Respiration Blood pressure 97 degrees 72/minute 20/minute 138/70 Weight 119.7 kg Phuc Martines DO 01/20/2025 8:54 PM Signed Lisa Lucero is a 69 year old female here for a Medicare wellness visit. Medicare Health Risk Assessment General Health Fair Exercise: Minutes/Day 0 min Exercise: Days/Week 0 days Alcohol: Daily Use 4 or more times a week Alcohol: Drinks/Day 3 or 4 Alcohol: 6 or more drinks Weekly Feel off balance intermittently Concerns: Teeth/Dentures no Concerns: Sexual function no Troubled by feelings no Frequency: Eating healthy diet yes ADLs requiring help no Safety precautions in home/vehicle yes Smoke, vape, chews tobacco no Difficulty hearing no Difficulty seeing Has glasses Current Providers Specialists: I have reviewed specialist-related care of the patient in the medical record. Medical/Family history review Reviewed and updated problem list, medical/surgical/family/socia l history, medications, and allergies. Opioid use review Opioid Medications (last 90 days) No data to display Anxiety/Depression screening PHQ-9 Score: 2 (Minimal Depression) EMERALD-7 Score: 0. Recommendation: no further intervention at this time Cognitive screening Cognitive screening reviewed and No further action needed (score 3-5). Functional Observation Was the patient's Timed Up AND Go test unsteady or >= 12 seconds? No Advance Care Planning Surrogate decision maker and/or advance care plan documented Measurements BP 138/70 Pulse 72 Temp 36.1 ?C (97 ?F) (Left Tympanic) Resp 20 Wt 119.7 kg (264 lb) BMI 45.32 kg/m? Vision Screening: Follows with optometry/ophthalmology Assessment/Plan Medicare annual wellness visit, subsequent (Z00.00) - Counseled on healthy diet and regular exercise - Fall avoidance information provided - Personalized prevention plan provided - Discussed need for and benefit of weight loss. BMI 45.32 kg/(m2) DO Conrad Falk Jordan L, DO 01/20/2025 8:54 PM Signed CC: Lisa Lucero is a 69 year old female who presents to the office for follow up HPI: HTN, recently controlled, no further dizziness. No chest pain/pressure. Has chronic dyspnea. No new edema or SINHA's or syncope symptoms. IFG, dyslipidemia, knows needs to work on weight loss efforts, is currently diet controlled Hair thinning, fatigue, fine hairer states that she is concerned there is a cause She has had a lot of stress with her passing away recently and wondering is this affected her. Feels she is coping okay. 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 No heart cath. Diverticulosis of colon (without mention of hemorrhage) Essential hypertension, benign Fibrocystic breast Former smoker Internal hemorrhoids without mention of complication Leiomyoma of uterus, unspecified Obstructive sleep apnea Mild. Not prescribed CPAP, only 2L nasal O2. PAST SURGICAL HISTORY Procedure Laterality Date BREAST LUMPECTOMY HX Right 1997 COLONOSCOPY FLX DX W/COLLJ SPEC WHEN PFRMD 08/27/08 repeat due 2017 COLONOSCOPY FLX DX W/COLLJ SPEC WHEN PFRMD 09/10/2018 Colonoscopy - due 2027 INGUINAL HERNIA REPAIR HX 1976 bilateral PAST SURGICAL HISTORY OF hemangioma left cheek REMOVAL OF IMPACTED TOOTH - COMPLETELY BONY WISDOM TEETH Current Outpatient Medications Medication Sig albuterol HFA (PROVENTIL HFA, VENTOLIN HFA) 90 mcg/actuation inhaler Inhale 2 Puffs as instructed every 6 hours as needed for wheezing/shortness of breath. snbyqfeppqg-eoeefocbs-aohckrp r (TRELEGY ELLIPTA) 200-62.5-25 mcg inhalation powder Inhale 1 Puff as instructed once daily. triamterene-hydroCHLOROthiazi de (DYAZIDE) 37.5-25 mg per capsule Take 1 capsule by mouth once daily. amLODIPine (NORVASC) 10 mg tablet Take 1 tablet by mouth once daily. triamcinolone acetonide (KENALOG) 0.5 % cream Apply 1 application to affected area two times a day as needed (foot rash, eczema). For rash/itching. Apply sparingly. Avoid face/skin fold. (Patient not taking: Reported on 12/25/2024) ipratropium-albuterol (DUONEB) 0.5 mg-3 mg(2.5 mg base)/3 mL nebu Inhale 3 mL as instructed four times daily. Inhale via nebulizer over 5-15 minutes. OXYGEN, HOME THERAPY, 3.5L at night and 6L with exertion COMPOUNDED PRESCRIPTION Please dispense nebulizer and supply kit, including (more content not included)... Normal [facility] Folate SerPl-mCncon 01-21-20 25 Folate [Mass/Vol] 18.5 ng/mL Normal >4.7 [facility] Comment on above: Order Comment: Speci men Type: BLOOD SPECIMEN Ordering Facility: [facility] Address: [address] [place] [address] Performed By: #### 3 024-7, 3051-0, 52122-4, 3016-3 #### [facility] CLIA [id number] [address] [place] [address] [place] Iron and Iron binding capaci ty panelon 01-20-2025 Iron [Mass/Vol] 92 ug/dL Normal 41-186 [facility] Comment on above: Order Comment: Speci men Type: BLOOD SPECIMEN Ordering Facility: [facility] Address: [address] [place] [address] Performed By: #### 3 024-7, 3051-0, 86732-2, 3016-3 #### [facility] CLIA [id number] [address] [place] [address] [place] Iron binding capacity [Mass/Vol] 403 ug/dL High 232-386 [facility] Comment on above: Order Comment: Speci men Type: BLOOD SPECIMEN Ordering Facility: [facility] Address: [address] [place] [address] Performed By: #### 3 024-7, 3051-0, 42952-8, 3016-3 #### [facility] CLIA [id number] [address] [place] [address] [place] Iron/TIBC [Molar ratio] 22.8 % Normal 15.0-57.0 [facility] Comment on above: Order Comment: Speci men Type: BLOOD SPECIMEN Ordering Facility: [facility] Address: [address] [place] [address] Performed By: #### 3 024-7, 3051-0, 22956-1, 6-3 #### [facility] CLIA [id number] [address] [place] [address] [place] T3Free SerPl-mCncon 01-21-20 25 Free T3 [Mass/Vol] 2.9 pg/mL Normal 2.3-4.1 [facility] Comment on above: Order Comment: Speci men Type: BLOOD SPECIMEN Ordering Facility: [facility] Address: [address] [place] [address] Performed By: #### 3 024-7, 3051-0, 60292-2, 6-3 #### [facility] CLIA [id number] [address] [place] [address] [place] T4 Free SerPl-mCncon 025 Free T4 [Mass/Vol] 0.9 ng/dL Normal 0.9-1.7 [facility] Comment on above: Order Comment: Speci men Type: BLOOD SPECIMEN Ordering Facility: [facility] Address: [address] [place] [address] Performed By: #### 3 024-7, 305-0, 61402-9, 6-3 #### [facility] CLIA [id number] [address] [place] [address] [place] TSH SerPl-aCncon 01-20-2025 TSH Qn 2.860 m[IU]/L Normal 0.270-4.20 0 [facility] Comment on above: Order Comment: Speci men Type: BLOOD SPECIMEN Ordering Facility: [facility] Address: [address] [place] [address] Performed By: #### 3 024-7, 3051-0, 91274-1, 6-3 #### [facility] CLIA [id number] [address] [place] [address] [place] Vit B12 SerPl-mCncon 025 Cobalamin (Vitamin B12) [Mass/Vol] 940 pg/mL Normal 232-1245 [facility] Comment on above: Order Comment: Speci men Type: BLOOD SPECIMEN Ordering Facility: [facility] Address: [address] [place] [address] Performed By: #### 3 024-7, 3051-0, 77579-3, 3016-3 #### [facility] CLIA [id number] [address] [place] [address] [place] CBC W Auto Differential pane l (Bld)on 01-13-2025 Basophils (Bld) [#/Vol] 0.06 10*3/uL Normal <0.11 [facility] Comment on above: Order Comment: Speci men Type: BLOOD SPECIMEN Ordering Facility: [facility] Address: [address] [place] [address] Performed By: #### 3 024-7, 3051-0, 04623-0, 3016-3 #### [facility] CLIA [id number] [address] [place] [address] [place] Basophils/100 WBC (Bld) 0.8 % Normal [facility] Comment on above: Order Comment: Speci men Type: BLOOD SPECIMEN Ordering Facility: [facility] Address: [address] [place] [address] Performed By: #### 3 024-7, 3051-0, 52856-0, 3016-3 #### [facility] CLIA [id number] [address] [place] [address] [place] Differential cell count method Nom (Bld) Auto Normal [facility] Comment on above: Order Comment: Speci men Type: BLOOD SPECIMEN Ordering Facility: [facility] Address: [address] [place] [address] Performed By: #### 3 024-7, 3051-0, 43347-7, 3016-3 #### [facility] CLIA [id number] [address] [place] [address] [place] Eosinophils (Bld) [#/Vol] 0.20 10*3/uL Normal <0.46 [facility] Comment on above: Order Comment: Speci men Type: BLOOD SPECIMEN Ordering Facility: [facility] Address: [address] [place] [address] Performed By: #### 3 024-7, 3051-0, 03785-8, 3016-3 #### [facility] CLIA [id number] [address] [place] [address] [place] Eosinophils/100 WBC (Bld) 2.6 % Normal [facility] Comment on above: Order Comment: Speci men Type: BLOOD SPECIMEN Ordering Facility: [facility] Address: [address] [place] [address] Performed By: #### 3 024-7, 3051-0, 58012-1, 3016-3 #### [facility] CLIA [id number] [address] [place] [address] OF [facility] Erythrocyte distribution width (RBC) [Ratio] 14.6 % Normal 11.5-15.0 [facility] Comment on above: Order Comment: Speci men Type: BLOOD SPECIMEN Ordering Facility: [facility] Address: [address] [place] [address] Performed By: #### 3 024-7, 3051-0, 43101-7, 3016-3 #### [facility] CLIA [id number] [address] [place] [address] [place] Hematocrit (Bld) [Volume fraction] 46.5 % High 36.0-46.0 [facility] Comment on above: Order Comment: Speci men Type: BLOOD SPECIMEN Ordering Facility: [facility] Address: [address] [place] [address] Performed By: #### 3 024-7, 3051-0, 65735-6, 3016-3 #### [facility] CLIA [id number] [address] [id number] [address] [place] Hemoglobin (Bld) [Mass/Vol] 14.3 g/dL Normal 11.5-15.5 [facility] Comment on above: Order Comment: Speci men Type: BLOOD SPECIMEN Ordering Facility: [facility] Address: [address] [place] [address] Performed By: #### 3 024-7, 3051-0, 20525-7, 3016-3 #### [facility] CLIA [id number] [address] [place] [address] [place] Immature granulocytes (Bld) [#/Vol] 10*3/uL Normal <0.10 [facility] Comment on above: Order Comment: Speci men Type: BLOOD SPECIMEN Ordering Facility: [facility] Address: [address] [place] [address] Performed By: #### 3 024-7, 3051-0, 80391-3, 3016-3 #### [facility] CLIA [id number] [address] [place] [address] [place] Immature granulocytes/100 WBC (Bld) 0.1 % Normal [facility] Comment on above: Order Comment: Speci men Type: BLOOD SPECIMEN Ordering Facility: [facility] Address: [address] [place] [address] Performed By: #### 3 024-7, 3051-0, 10509-3, 3016-3 #### [facility] CLIA [id number] [address] [place] [address] [place] Lymphocytes (Bld) [#/Vol] 1.28 10*3/uL Normal 1.00-4.00 [facility] Comment on above: Order Comment: Speci men Type: BLOOD SPECIMEN Ordering Facility: [facility] Address: [address] [place] [address] Performed By: #### 3 024-7, 3051-0, 49941-3, 3016-3 #### [facility] CLIA [id number] [address] [place] [address] [place] Lymphocytes/100 WBC (Bld) 16.9 % Normal [facility] Comment on above: Order Comment: Speci men Type: BLOOD SPECIMEN Ordering Facility: [facility] Address: [address] [place] [address] Performed By: #### 3 024-7, 3051-0, 68472-8, 3016-3 #### [facility] CLIA [id number] [address] [place] [address] [place] MCH (RBC) [Entitic mass] 30.6 pg Normal 26.0-34.0 [facility] Comment on above: Order Comment: Speci men Type: BLOOD SPECIMEN Ordering Facility: [facility] Address: [address] [place] [address] Performed By: #### 3 024-7, 3051-0, 60520-0, 6-3 #### [facility] CLIA [id number] [address] [place] [address] [place] MCHC (RBC) [Mass/Vol] 30.8 g/dL Normal 30.5-36.0 [facility] Comment on above: Order Comment: Speci men Type: BLOOD SPECIMEN Ordering Facility: [facility] Address: [address] [place] [address] Performed By: #### 3 024-7, 3051-0, 80692-4, 6-3 #### [facility] CLIA [id number] [address] [place] [address] [place] MCV (RBC) [Entitic vol] 99.4 fL Normal 80.0-100.0 [facility] Comment on above: Order Comment: Speci men Type: BLOOD SPECIMEN Ordering Facility: [facility] Address: [address] [place] [address] Performed By: #### 3 024-7, 3051-0, 10669-8, 3016-3 #### [facility] CLIA [id number] [address] [place] [address] [place] Monocytes (Bld) [#/Vol] 0.75 10*3/uL Normal <0.87 [facility] Comment on above: Order Comment: Speci men Type: BLOOD SPECIMEN Ordering Facility: [facility] Address: [address] [place] [address] Performed By: #### 3 024-7, 3051-0, 94030-6, 3016-3 #### [facility] CLIA [id number] [address] [place] [address] [place] Monocytes/100 WBC (Bld) 9.9 % Normal [facility] Comment on above: Order Comment: Speci men Type: BLOOD SPECIMEN Ordering Facility: [facility] Address: [address] [place] [address] Performed By: #### 3 024-7, 3051-0, 00455-6, 6-3 #### [facility] CLIA [id number] [address] [place] [address] [place] Neutrophils (Bld) [#/Vol] 5.27 10*3/uL Normal 1.45-7.50 [facility] Comment on above: Order Comment: Speci men Type: BLOOD SPECIMEN Ordering Facility: [facility] Address: [address] [place] [address] Performed By: #### 3 024-7, 3051-0, 87289-4, 6-3 #### [facility] CLIA [id number] [address] [place] [address] [place] Neutrophils/100 WBC (Bld) 69.7 % Normal [facility] Comment on above: Order Comment: Speci men Type: BLOOD SPECIMEN Ordering Facility: [facility] Address: [address] [place] [address] Performed By: #### 3 024-7, 3051-0, 47855-2, 3016-3 #### [facility] CLIA [id number] [address] [place] [address] [place] Nucleated RBC (Bld) [#/Vol] 10*3/uL Normal <0.01 [facility] Comment on above: Order Comment: Speci men Type: BLOOD SPECIMEN Ordering Facility: [facility] Address: [address] [place] [address] Performed By: #### 3 024-7, 3051-0, 33048-8, 6-3 #### [facility] CLIA [id number] [address] [place] [address] [place] Nucleated RBC/100 WBC (Bld) [Ratio] 0.0 /100 WBC Normal [facility] Comment on above: Order Comment: Speci men Type: BLOOD SPECIMEN Ordering Facility: [facility] Address: [address] [place] [address] Performed By: #### 3 024-7, 3051-0, 96203-9, 6-3 #### [facility] CLIA [id number] [address] [place] [address] [place] Platelet mean volume (Bld) [Entitic vol] 11.6 fL Normal 9.0-12.7 [facility] Comment on above: Order Comment: Speci men Type: BLOOD SPECIMEN Ordering Facility: [facility] Address: [address] [place] [address] Performed By: #### 3 024-7, 3051-0, 89830-4, 6-3 #### [facility] CLIA [id number] [address] [place] [address] [place] Platelets (Bld) [#/Vol] 266 10*3/uL Normal 150-400 [facility] Comment on above: Order Comment: Speci men Type: BLOOD SPECIMEN Ordering Facility: [facility] Address: [address] [place] [address] Performed By: #### 3 024-7, 3051-0, 95822-7, 6-3 #### [facility] CLIA [id number] [address] [place] [address] [place] RBC (Bld) [#/Vol] 4.68 10*6/uL Normal 3.90-5.20 [facility] Comment on above: Order Comment: Speci men Type: BLOOD SPECIMEN Ordering Facility: [facility] Address: [address] [place] [address] Performed By: #### 3 024-7, 3051-0, 98900-3, 3016-3 #### [facility] CLIA [id number] [address] [place] [address] [place] WBC (Bld) [#/Vol] 7.57 10*3/uL Normal 3.70-11.00 [facility] Comment on above: Order Comment: Speci men Type: BLOOD SPECIMEN Ordering Facility: [facility] Address: [address] [place] [address] Performed By: #### 3 024-7, 3051-0, 70063-7, 3016-3 #### [facility] CLIA [id number] [address] [place] [address] [place] Comprehensive metabolic 2000 panelon 01-13-2025 Albumin [Mass/Vol] 4.6 g/dL Normal 3.9-4.9 [facility] Comment on above: Order Comment: Speci men Type: BLOOD SPECIMEN Ordering Facility: [facility] Address: [address] [place] [address] Performed By: #### 3 024-7, 3051-0, 18757-4, 3016-3 #### [facility] CLIA [id number] [address] [place] [address] [place] ALP [Catalytic activity/Vol] 77 U/L Normal 34-123 [facility] Comment on above: Order Comment: Speci men Type: BLOOD SPECIMEN Ordering Facility: [facility] Address: [address] [place] [address] Performed By: #### 3 024-7, 3051-0, 44781-9, 6-3 #### [facility] CLIA [id number] [address] [place] [address] [place] ALT [Catalytic activity/Vol] 27 U/L Normal 7-38 [facility] Comment on above: Order Comment: Speci men Type: BLOOD SPECIMEN Ordering Facility: [facility] Address: [address] [place] [address] Performed By: #### 3 024-7, 305-0, 83075-7, 6-3 #### [facility] CLIA [id number] [address] [place] [address] [place] Anion gap [Moles/Vol] 12 mmol/L Normal 8-15 [facility] Comment on above: Order Comment: Speci men Type: BLOOD SPECIMEN Ordering Facility: [facility] Address: [address] [place] [address] Performed By: #### 3 024-7, 3050-0, 55425-8, 6-3 #### [facility] CLIA [id number] [address] [place] [address] [place] AST [Catalytic activity/Vol] 24 U/L Normal 13-35 [facility] Comment on above: Order Comment: Speci men Type: BLOOD SPECIMEN Ordering Facility: [facility] Address: [address] [place] [address] Performed By: #### 3 024-7, 305-0, 01941-0, 6-3 #### [facility] CLIA [id number] [address] [place], [place] [address] [place] Bilirubin [Mass/Vol] 0.6 mg/dL Normal 0.2-1.3 [facility] Comment on above: Order Comment: Speci men Type: BLOOD SPECIMEN Ordering Facility: [facility] Address: [address] [place] [address] Performed By: #### 3 024-7, 305-0, 03648-6, 3016-3 #### [facility] CLIA [id number] [address] [place] [address] [place] Calcium [Mass/Vol] 10.0 mg/dL Normal 8.5-10.2 [facility] Comment on above: Order Comment: Speci men Type: BLOOD SPECIMEN Ordering Facility: [facility] Address: [address] [place] [address] Performed By: #### 3 024-7, 305-0, 91317-4, 3 #### [facility] CLIA [id number] [address] [place] [address] [place] Chloride [Moles/Vol] 94 mmol/L Low 98-107 [facility] Comment on above: Order Comment: Speci men Type: BLOOD SPECIMEN Ordering Facility: [facility] Address: [address] [place] [address] Performed By: #### 3 024-7, 3050-0, 09494-6, 3 #### [facility] CLIA [id number] [address] [place] [address] [place] CO2 [Moles/Vol] 37 mmol/L High 22-30 [facility] Comment on above: Order Comment: Speci men Type: BLOOD SPECIMEN Ordering Facility: [facility] Address: [address] [place] [address] Performed By: #### 3 024-7, 305-0, 83970-7, 3 #### [facility] CLIA [id number] [address] [place], [place] [address] [place] Creatinine [Mass/Vol] 0.56 mg/dL Low 0.58-0.96 [facility] Comment on above: Order Comment: Speci men Type: BLOOD SPECIMEN Ordering Facility: [facility] Address: [address] [place] [address] Performed By: #### 3 024-7, 305-0, 06467-6, 3016-3 #### [facility] CLIA [id number] [address] [place] [address] [place] Creatinine and Glomerular filtration rate.predicted panel (S/P/Bld) 100 mL/min/1.73m??? Normal >=60 [facility] Comment on above: Order Comment: Xiao cook Type: BLOOD SPECIMEN Ordering Facility: [facility] Address: [address] [place] [address] Result Comment: Marcia mated Glomerular Filtration Rate (eGFR) is calculated using the 2020 CKD-EPI creatinine equation. This equation utilizes serum creatinine, sex, and age as parameters. The creatinine assay has traceable calibration to isotope dilution-mass spectrometry. Refer to KDIGO guidelines for clinical interpretation. In patients with unstable renal function, e.g. those with acute kidney injury, the eGFR may not accurately reflect actual GFR. Performed By: #### 3 024-7, 3051-0, 66842-8, 3015-3 #### [facility] CLIA [id number] [address] [place] [address] [place] Glucose [Mass/Vol] 112 mg/dL High 74-99 [facility] Comment on above: Order Comment: Xiao cook Type: BLOOD SPECIMEN Ordering Facility: [facility] Address: [address] [place] [address] Result Comment: The [place] Diabetes Association (ADA) provides guidance for cutoff values for fasting glucose and random glucose. The ADA defines fasting as no caloric intake for at least 8 hours. Fasting plasma glucose results between 100 to 125 mg/dL indicate increased risk for diabetes (prediabetes). Fasting plasma glucose results greater than or equal to 126 mg/dL meet the criteria for diagnosis of diabetes. In the absence of unequivocal hyperglycemia, results should be confirmed by repeat testing. In a patient with classic symptoms of hyperglycemia or hyperglycemic crisis, random plasma glucose results greater than or equal to 200 mg/dL meet the criteria for diagnosis of diabetes. Reference: Standards of Medical Care in Diabetes 2016, [place] Diabetes Association. Diabetes Care. 2016.39(Suppl 1). Performed By: #### 3 024-7, 3051-0, 09104-2, 3015-3 #### [facility] CLIA [id number] [address] [place] [address] [place] Potassium [Moles/Vol] 4.3 mmol/L Normal 3.7-5.1 [facility] Comment on above: Order Comment: Speci men Type: BLOOD SPECIMEN Ordering Facility: [facility] Address: [address] [place] [address] Performed By: #### 3 024-7, 305-0, 38326-6, 3015-3 #### [facility] CLIA [id number] [address] [place], [place] [address] [place] Protein [Mass/Vol] 7.7 g/dL Normal 6.3-8.0 [facility] Comment on above: Order Comment: Speci men Type: BLOOD SPECIMEN Ordering Facility: [facility] Address: [address] [place] [address] Performed By: #### 3 024-7, 305-0, 59701-8, 3015-3 #### [facility] CLIA [id number] [address] [place], [place] [address] [place] Sodium [Moles/Vol] 143 mmol/L Normal 136-144 [facility] Comment on above: Order Comment: Speci men Type: BLOOD SPECIMEN Ordering Facility: [facility] Address: [address] [place] [address] Performed By: #### 3 024-7, 305-0, 43290-3, 3015-3 #### [facility] CLIA [id number] [address] [place], [place] [address] [place] Urea nitrogen [Mass/Vol] 12 mg/dL Normal 7-21 [facility] Comment on above: Order Comment: Speci men Type: BLOOD SPECIMEN Ordering Facility: [facility] Address: [address] [place] [address] Performed By: #### 3 024-7, 305-0, 14108-0, 3015-3 #### [facility] CLIA [id number] [address] [place] [address] [place] HbA1c (Bld)on 01-13-2025 Average glucose Estimated from glycated hemoglobin (Bld) [Mass/Vol] 114 mg/dL Normal [facility] Comment on above: Order Comment: Xiao cook Type: BLOOD SPECIMEN Ordering Facility: [facility] Address: [address] [place] [address] Result Comment: eAG: (Estimated average glucose) is a calculated value from HgbA1c and is life assurance representative of the average blood glucose level in the last 2-3 month period. Performed By: #### 5 5454-3 #### [facility] CLIA [id number] [address] [place] [address] [place] HbA1c (Bld) [Mass fraction] 5.6 % Normal 4.3-5.6 [facility] Comment on above: Order Comment: Xiao cook Type: BLOOD SPECIMEN Ordering Facility: [facility] Address: [address] [place] [address] Result Comment: [place] [place] [employer] guidelines indicate that patients with HgbA1c in the range 5.7-6.4% are at increased risk for development of diabetes, and intervention by lifestyle modification may be beneficial. HgbA1c greater or equal to 6.5% is considered diagnostic of diabetes. Performed By: #### 5 5454-3 #### [facility] CLIA [id number] [address] [place] [address] [place] Lipid 1996 panelon 5 Cholesterol [Mass/Vol] 233 mg/dL High <200 [facility] Comment on above: Order Comment: Xiao cook Type: BLOOD SPECIMEN Ordering Facility: [facility] Address: [address] [place] [address] Result Comment: <200 mg/dL, Desirable 200-239 mg/dL, Borderline high >239 mg/dL, High Performed By: #### 3 024-7, 3051-0, 69874-4, 3016-3 #### [facility] CLIA [id number] [facility] [address] OF [facility] Cholesterol in HDL [Mass/Vol] 91 mg/dL Normal >39 [facility] Comment on above: Order Comment: Xiao joey Type: BLOOD SPECIMEN Ordering Facility: [facility] Address: [address] [place] [address] Result Comment: 40-5 9 mg/dL, Acceptable >59 mg/dL, High: Negative risk factor for coronary heart disease <40 mg/dL, Low: Positive risk factor for coronary heart disease Performed By: #### 3 024-7, 3051-0, 05687-5, 3016-3 #### [facility] CLIA [id number] [address] [place] [address] Cholesterol in LDL [Mass/Vol] 128 mg/dL High <100 [facility] Comment on above: Order Comment: Xiao joey Type: BLOOD SPECIMEN Ordering Facility: [facility] Address: [address] [place] [address] Result Comment: <100 mg/dL, Optimal 100-129 mg/dL, Near optimal/above optimal 130-159 mg/dL, Borderline high 160-189 mg/dL, High >189 mg/dL, Very high Secondary prevention optimal LDL Cholesterol levels are recommended to be < 70 mg/dL Performed By: #### 3 024-7, 3051-0, 64494-2, 3016-3 #### [facility] CLIA [id number] [address] [place] [address] OF [facility] Cholesterol in LDL/Cholesterol in HDL [Mass ratio] 1.41 {ratio} Normal <2.54 [facility] Comment on above: Order Comment: Xiao joey Type: BLOOD SPECIMEN Ordering Facility: [facility] Address: [address] [place] [address] Result Comment: Black novoa: 1. National Cholesterol Education Program ATP III Guideline At-A-Glance Quick Desk Reference: National Heart, Lung, and Blood [place]. National Institutes of Health. 2001: NIH Publication No. 01-3305. 2. An International Atherosclerosis Society position paper: global recommendations for the management of dyslipidemia: executive summary, Atherosclerosis. 2014: 232(2):410-413. Performed By: #### 3 024-7, 3051-0, 73503-9, 6-3 #### [facility] CLIA [id number] [address] [place] [address] [place] Cholesterol in VLDL [Mass/Vol] 14 mg/dL Normal <30 [facility] Comment on above: Order Comment: Speci men Type: BLOOD SPECIMEN Ordering Facility: [facility] Address: [address] [place] [address] Performed By: #### 3 024-7, 3050-0, 36033-4, 6-3 #### [facility] CLIA [id number] [address] [place] [address] [place] Cholesterol non HDL [Mass/Vol] 142 mg/dL High <130 [facility] Comment on above: Order Comment: Speci men Type: BLOOD SPECIMEN Ordering Facility: [facility] Address: [address] [place] [address] Result Comment: <130 mg/dL, Optimal 130-159 mg/dL, Near optimal/above optimal 160-189 mg/dL, Borderline high 190-219 mg/dL, High >219 mg/dL, Very high Secondary prevention optimal non HDL Cholesterol levels are recommended to be <100 mg/dL Performed By: #### 3 024-7, 3050-0, 28143-9, 6-3 #### [facility] CLIA [id number] [address] [place], [place] [id number] [place] Cholesterol.total/Cho lesterol in HDL [Mass ratio] 2.56 {ratio} Normal <5.10 [facility] Comment on above: Order Comment: Speci men Type: BLOOD SPECIMEN Ordering Facility: [facility] Address: [address] [place] [address] Performed By: #### 3 024-7, 3051-0, 19548-1, 6-3 #### [facility] CLIA [id number] [address] [place] [address] [place] FASTING TIME 12 hrs Normal [facility] Comment on above: Order Comment: Speci men Type: BLOOD SPECIMEN Ordering Facility: [facility] Address: [address] [place] [address] Performed By: #### 3 024-7, 3051-0, 61764-3, 3016-3 #### [facility] CLIA [id number] [address] [place] [address] [place] Triglyceride [Mass/Vol] 72 mg/dL Normal <150 [facility] Comment on above: Order Comment: Speci men Type: BLOOD SPECIMEN Ordering Facility: [facility] Address: [address] [place] [address] Result Comment: <150 mg/dL, Normal 150-199 mg/dL, Borderline high 200-499 mg/dL, High >499 mg/dL, Very high Performed By: #### 3 024-7, 3051-0, 86953-0, 3016-3 #### [facility] CLIA [id number] [address] [place] [address] [place] CNOVon 12-25-2024 CNOV Office Visit (PULMWS ) LISA LUCERO ([id number]) 1955 F Date Time Provider Department 12/25/24 11:30 AM LISA GOODMAN PULMWS During your visit today, we recorded the following information about you: Pulse Respiration Blood pressure Weight 92/minute 20/minute 134/64 119.1 kg Lisa Goodman, AVIATION TACTICAL READINESS OFFICER.CULTURE MANAGER 12/25/2024 12:29 PM Signed Pulmonary Medicine Patients name: Lisa Palumbo PCP: Phuc Martines DO CC: follow-up COPD HPI: Lisa Lucero is a 69 year old female former [id number] smoker, quitting in 2008 with PMH significant for morbid obesity, severe COPD, chronic hypoxemic respiratory failure, CAD, HTN, and ROXY. Current therapy consists of Trelegy Ellipta with as needed albuterol. On supplemental O2. ABRAHAM 05/2024 overall feeling well. Her main respiratory symptoms was BRAGG. Follows with [facility] and had CT in September. It showed new inflammatory opacities but did not have any new or concerning infectious symptoms. Since her last visit, she reports gradual worsening of exertional dyspnea. Notes she is SOB with showering. Today, she reports occasional cough, rare sputum. No hemoptysis. Has PND that is occasionally bothersome. Notes wheezing occasionally. Denies dyspnea at rest. No fevers, chills, or night sweats. No unintended weight loss or lower extremity edema. No recent hospitalizations or ED visits or upper respiratory infections. Albuterol and Duoneb use is rare, typically only when sick. She reports compliance with supplemental O2, however she consistently uses 3.5L even with exertion. Review of previous oximetry testing shows 6L with exertion. Has pulse ox at home but rarely checks. DME: Bruce Supplemental O2 PAST MEDICAL HISTORY Diagnosis Date Chronic hypoxemic respiratory failure (HCC) COPD (chronic obstructive pulmonary disease) (HCC) 02/03/2010 Coronary artery disease No NE, CHF. No heart cath. Diverticulosis of colon (without mention of hemorrhage) Essential hypertension, benign Fibrocystic breast Former smoker Internal hemorrhoids without mention of complication Leiomyoma of uterus, unspecified Obstructive sleep apnea Mild. Not prescribed CPAP, only 2L nasal O2. Allergies: Aleve [Naproxen] Hives Comment:Hives, edema of hands within 1 hour of use Medication List Accurate as of December 23, 2024 3:36 PM. If you have any questions, ask your nurse or doctor. CONTINUE taking these medications albuterol HFA 90 mcg/actuation inhaler Commonly known as: PROVENTIL HFA, VENTOLIN HFA Inhale 2 Puffs as instructed every 6 hours as needed for wheezing/shortness of breath. amLODIPine 10 mg tablet Commonly known as: NORVASC Take 1 tablet by mouth once daily. COMPOUNDED PRESCRIPTION COMPOUNDED PRESCRIPTION Please dispense nebulizer and supply kit, including tubing, mouth piece, and hose. Assoc diagnosis: J44.9. Dispense: 1 each, Refills: 99. SIVAN C ORAL ipratropium-albuterol 0.5 mg-3 mg(2.5 mg base)/3 mL Nebu Commonly known as: DUONEB Inhale 3 mL as instructed four times daily. Inhale via nebulizer over 5-15 minutes. multivitamin tablet OXYGEN (HOME THERAPY) 3.5L at night and 6L with exertion TRELEGY ELLIPTA 100-62.5-25 mcg inhalation powder Generic drug: bihowsjxnlx-qazhcizpz-smnkzex r USE 1 INHALATION DAILY INSTRUCTED triamcinolone acetonide 0.5 % cream Commonly known as: KeNALog Apply 1 application to affected area two times a day as needed (foot rash, eczema). For rash/itching. Apply sparingly. Avoid face/skin fold. triamterene-hydroCHLOROthiazi de 37.5-25 mg per capsule Commonly known as: DYAZIDE Take 1 capsule by mouth once daily. DATA: I personally reviewed and analyzed all labs, radiographs and available pulmonary function testing 05/2023 PFT: 02/2022 Spirometry indicates very severe obstruction. CT Chest: 09/2024 IMPRESSION: LungRADS category: 0 LungRADS modifier: None LungRADS 0 reason: n/a Recommendations: Additional lung cancer screening CT images and/or comparison to prior chest CT examinations is needed. Reference: [employer]. Lung CT Screening Reporting and Data System (Lung-RADS). Available at: http://www.acr.org/Quality-Sa fety/Resources/LungRADS Personal Lines Account Manager: PAT Transcribe Date/Time: Oct 19 2024 11:21A Dictated by : VIDAL PULLIAM MD This examination was interpreted and the report reviewed and electronically signed by: VIDAL PULLIAM MD on Oct 19 2024 11:28AM EST Results-Findings * * *Final Report* * * DATE OF EXAM: Oct 19 2024 10:09AM [facility] 0562 - CT LUNG SCREEN WO IVCON / PROCEDURE REASON: Former cigarette smoker * * * * Physician Interpretation * * * * EXAMINATION: CHEST CT WITHOUT CONTRAST (LOW-DOSE CT LUNG CANCER SCREENING MICHAEL (more content not included)... Normal [facility] DBT Breast - bilateral scree camilon 12-03-2024 IMPRESSION: There is no mammographic evidence of malignancy. Routine screening mammogram is recommended. Annual mammogram will be due in 1 year. BI-RADS Category 2: Benign RISK: Based on the Tyrer-Cuzick (TC) risk assessment model, this patient has a 4.6% lifetime risk of developing breast cancer, meaning they are at average risk for developing breast cancer. However, this is only an estimate based on available history provided on the patient's questionnaire. We encourage all patients to talk with their providers about these results, further recommendations for managing breast health, and appropriate supplemental screening options if the patient has dense breast tissue. Interpreting Radiologist: Manish Quintana M.D. Electronically signed on: 12/03/2024 Personal Lines Account Manager: SHAMEKA Transcrighazal Date/Time: Dec 03 2024 11:01A Dictated by: MANISH QUINTANA MD This examination was interpreted and the report reviewed and electronically signed by: MANISH QUINTANA MD on Dec 03 2024 6:47PM [facility] DIVISION OF RADIOLOGY * * *Final Report* * * DATE OF EXAM: Dec 03 2024 11:38AM [facility] 0582 - ANUSHA SCREENING W ASHLEY / PROCEDURE REASON: Encounter for screening mammogram for breast cancer * * * * Physician Interpretation * * * * RESULT: [facility] [address] [place] [address] #[id number] - ANUSHA SCREENING W ASHLEY HISTORY: 69 year-old patient seen for screening and is asymptomatic in both breasts. Patient states no personal history of breast cancer. Patient states no personal history of other cancers. COMPARISON STUDIES: The present examination has been compared to prior imaging studies dated 09/27/2017 (mammogram), 11/14/2018 (mammogram), 09/02/2020 (mammogram), 09/11/2022 (mammogram) and 09/17/2023 (mammogram). MAMMOGRAM TECHNIQUE: The study was acquired using full field digital technology and interpreted from soft copy. Digital Breast Tomosynthesis (DBT) images were obtained and used to assist in the interpretation of this examination. MAMMOGRAM FINDINGS: There are scattered areas of fibroglandular density. There are post-operative changes in the right breast. No suspicious masses, calcifications or other abnormalities are seen in either breast. DIVISION OF RADIOLOGY Provider, [facility] - 12/03/2024 * * *Final Report* * * DATE OF EXAM: Dec 03 2024 11:38AM [facility] 0582 - [facility] SCREENING W ASHLEY / PROCEDURE REASON: Encounter for screening mammogram for breast cancer * * * * Physician Interpretation * * * * RESULT: [place] [address] #[id number] - [facility] SCREENING W ASHLEY HISTORY: 69 year-old patient seen for screening and is asymptomatic in both breasts. Patient states no personal history of breast cancer. Patient states no personal history of other cancers. COMPARISON STUDIES: The present examination has been compared to prior imaging studies dated 09/27/2017 (mammogram), 11/14/2018 (mammogram), 09/02/2020 (mammogram), 09/11/2022 (mammogram) and 09/17/2023 (mammogram). MAMMOGRAM TECHNIQUE: The study was acquired using full field digital technology and interpreted from soft copy. Digital Breast Tomosynthesis (DBT) images were obtained and used to assist in the interpretation of this examination. MAMMOGRAM FINDINGS: There are scattered areas of fibroglandular density. There are post-operative changes in the right breast. No suspicious masses, calcifications or other abnormalities are seen in either breast. IMPRESSION IMPRESSION: There is no mammographic evidence of malignancy. Routine screening mammogram is recommended. Annual mammogram will be due in 1 year. BI-RADS Category 2: Benign RISK: Based on the Tyrer-Cuzick (TC) risk assessment model, this patient has a 4.6% lifetime risk of developing breast cancer, meaning they are at average risk for developing breast cancer. However, this is only an estimate based on available history provided on the patient's questionnaire. We encourage all patients to talk with their providers about these results, further recommendations for managing breast health, and appropriate supplemental screening options if the patient has dense breast tissue. Interpreting Radiologist: Manish Quintana M.D. Electronically signed on: 12/03/2024 Personal Lines Account Manager: SHAMEKA Transcribe Date/Time: Dec 03 2024 11:01A Dictated by: MANISH QUINTANA MD This examination was interpreted and the report reviewed and electronically signed by: MANISH QUINTANA MD on Dec 03 2024 6:47PM EST [facility] Radiology Study observation (narrative) [facility] DBT Breast - bilateral scree ningOrdered By: Cccoleen Provider on 12-03-2024 [facility] ANUSHA SCREENING W TOMOon 12-03 ANUSHA SCREENING W ASHLEY * * *Final Report* * * DATE OF EXAM: Dec 03 2024 11:38AM [facility] 0582 - ANUSHA SCREENING W ASHLEY / PROCEDURE REASON: Encounter for screening mammogram for breast cancer * * * * Physician Interpretation * * * * RESULT: [place] [address] [place] [address] #[id number] - ANUSHA SCREENING W ASHLEY HISTORY: 69 year-old patient seen for screening and is asymptomatic in both breasts. Patient states no personal history of breast cancer. Patient states no personal history of other cancers. COMPARISON STUDIES: The present examination has been compared to prior imaging studies dated 09/27/2017 (mammogram), 11/14/2018 (mammogram), 09/02/2020 (mammogram), 09/11/2022 (mammogram) and 09/17/2023 (mammogram). MAMMOGRAM TECHNIQUE: The study was acquired using full field digital technology and interpreted from soft copy. Digital Breast Tomosynthesis (DBT) images were obtained and used to assist in the interpretation of this examination. MAMMOGRAM FINDINGS: There are scattered areas of fibroglandular density. There are post-operative changes in the right breast. No suspicious masses, calcifications or other abnormalities are seen in either breast. IMPRESSION: There is no mammographic evidence of malignancy. Routine screening mammogram is recommended. Annual mammogram will be due in 1 year. BI-RADS Category 2: Benign RISK: Based on the Tyrer-Cuzick (TC) risk assessment model, this patient has a 4.6% lifetime risk of developing breast cancer, meaning they are at average risk for developing breast cancer. However, this is only an estimate based on available history provided on the patient's questionnaire. We encourage all patients to talk with their providers about these results, further recommendations for managing breast health, and appropriate supplemental screening options if the patient has dense breast tissue. Interpreting Radiologist: Manish Quintana M.D. Electronically signed on: 12/03/2024 Personal Lines Account Manager: SHAMEKA Fanrighazal Date/Time: Dec 03 2024 11:01A Dictated by: MANISH QUINTANA MD This examination was interpreted and the report reviewed and electronically signed by: MANISH QUINTANA MD on Dec 03 2024 6:47PM EST [id number] Normal [facility] CNOVon 10-19-2024 CNOV Office Visit (PULMWS ) LISA LUCERO ([id number]) 1955 F Date Time Provider Department 10/19/24 10:30 AM MARICRUZ CAMP During your visit today, we recorded the following information about you: Pulse Blood pressure Weight Height 101/minute 130/70 117.8 kg 1.626 m Maricruz Camp APRN.CNP 10/19/2024 2:53 PM Signed LUNG SCREENING ANNUAL VISIT PRIMARY CARE PHYSICIAN: Phuc Martines DO PULMONARY PROVIDER: none Results will be communicated via letter or electronic record if applicable. Visit Delivery: In Person Patient Visit Type: established Current or Ex-smoker? Ex Exam Type: annual LDCT Number of Pack Years: 38 Current smoker (=0) or Number of Years since Quit: 15 The patient's smoking history is similar to prior year shared decision visit. The reason for the discrepancy is NA Chief Complaint: Established patient in lung cancer screening program here for annual follow-up. Impression / Recommendations Lisa Lucero presents for annual lung cancer screening annual exam and nodule evaluation. Plan: Indeterminate pulmonary nodules: Previously identified nodules appear stable. There are new inflammatory opacities in MAKAYLA and RLL. Low dose CT Scan to be repeated in 3 months. Plan subject to change pending final radiology report and recommendations. Nature of the lung nodule(s) and the options for further evaluation discussed in detail with patient. Lisa Lucero expressed understanding and is in agreement with plan. 2. Encounter for screening for malignant neoplasm of respiratory organs I have determined that the patient is eligible for continued low dose CT screening based on age, absence of signs or symptoms of lung cancer, smoking history and total pack years. The patient was counseled on the importance of adherence to annual LDCT lung cancer screening, impact of comorbidities and ability or willingness to undergo diagnosis and treatment. The patient understands and feels comfortable with it: Yes. 3. Nicotine Dependence The patient was counseled on the importance of maintaining cigarette smoking abstinence - The patient is committed to remaining abstinent from tobacco. I spent a total of 3 minutes on the date of the service which included preparing to see the patient, [id number] patient care, completing clinical documentation, performing a medically appropriate examination, counseling and educating the patient/family/caregiver, ordering medications, tests, or procedures, communicating with other HCPs (not separately reported), independently interpreting results (not separately reported), communicating results to the patient/family/caregiver, and care coordination (not separately reported). Maricruz Camp, JAKI.[facility] October 19, 2024 10:28 AM History of Present Illness: Lisa Lucero is a 69 year old female who is presenting today for annual lung cancer screening LDCT and nodule surveillance/management. Patient has multiple nodules found on previous lung cancer screening LDCT. Last LDCT was performed on 10/08/2023 and was LUNG RADS Category 2. Previous potentially significant incidental findings on imaging: None. Patient is a former smoker with a 38 pack year history. Patient quit smoking 15 years ago at age 54. Patient will continue to be eligible for lung cancer screening until age 69. The patient does not have any symptoms or signs of lung cancer. Patient has noticed some increased SOB with their daily activity over the last 3-4 months. She has home oxygen and portable oxygen @6 L with exertion, 3.5 L at rest. No wheezing or dyspnea. Patient denies feeling of chest tightness/congestion in the chest. Patient does not have a new or concerning cough, and denies hemoptysis. Patient does not have a chronic daily cough. Denies regular or recent fevers/chills. Patient does not have any significant unintentional weight loss. Patient denies having any respiratory infections or COVID-19 in the past few months. Last URI around 02/2024. Uses Trelegy daily. Nebulizers and albuterol if feeling sick. Modified Medical Research [place] Dyspnea Scale (MMRC) I am too breathless to leave the house or I am breathless when dressing 4 Last 12 Encounter Wt Readings: Date: Wt: 10/19/2024 117.8 kg (259 lb 9.6 oz) 06/26/2024 115.2 kg (254 lb) 04/26/2024 118 kg (260 lb 2.3 oz) 03/13/2024 117 kg (258 lb) 01/29/2024 118.4 kg (261 lb 0.4 oz) 09/17/2023 120.4 kg (265 lb 6.4 oz) 08/14/2023 120.2 kg (265 lb) 06/13/2023 120.7 kg (266 lb) 02/06/2023 119.3 kg (263 lb) 09/28/2022 116.3 kg (256 lb 6.4 oz) 08/01/2022 117.5 kg (259 lb) 06/22/2022 117.5 kg (259 lb) Social History Tobacco Use: Types: Cigarettes Past Medical Hi (more content not included)... Normal [facility] CT Chest for screening WO co ntraston 10-19-2024 IMPRESSION: LungRADS category: 0 LungRADS modifier: None LungRADS 0 reason: n/a Recommendations: Additional lung cancer screening CT images and/or comparison to prior chest CT examinations is needed. Reference: [employer]. Lung CT Screening Reporting and Data System (Lung-RADS). Available at: http://www.acr.org/Quality-Sa fety/Resources/LungRADS Personal Lines Account Manager: PAT Transcribe Date/Time: Oct 19 2024 11:21A Dictated by : VIDAL PULLIAM MD This examination was interpreted and the report reviewed and electronically signed by: VIDAL PULLIAM MD on Oct 19 2024 11:28AM [facility] DIVISION OF RADIOLOGY * * *Final Report* * * DATE OF EXAM: Oct 19 2024 10:09AM [facility] 0562 - CT LUNG SCREEN [facility] / PROCEDURE REASON: Former cigarette smoker * * * * Physician Interpretation * * * * EXAMINATION: CHEST CT WITHOUT CONTRAST (LOW-DOSE CT LUNG CANCER SCREENING PROTOCOL) CLINICAL HISTORY: Lung cancer LDCT screening ? absence of signs or symptoms of lung cancer. Personal history of nicotine dependence. Subsequent (annual) Technique: Spiral CT acquisition of the chest from the thoracic inlet to the upper abdomen without contrast. MQ: [id number] Patient characteristics: * Gatj-wy-Zinas: 1955; Age at exam: 69 years * Gender: Female * Lung Disease: Asymptomatic (no signs or symptoms of lung disease) * Number of Pack Years: 38 * Current smoker (=0) or Number of Years since Quit: 15 * Ordering provider and NPI: MARICRUZ CAMP [id number] * Interpreting radiologist and NPI: Nicole [id number] Exam acquisition parameters: * Exam Date: 10/19/2024 10:09 AM * Site: [facility] * * CT System Ms Sql Server Developer: Siemens * CT System Model: Sensation * Tube Current-Time (mA-sec): 44 * Peak Voltage (kV): 120V * Scan Time (sec): 11.36 * Scan Volume (z-length, cm): -30.30 * Pitch: 0.75 * Slice Thickness (mm): 1.5 * CT Dose-Length Product: 134 mGy*cm * CT Dose Index: 3.42mGy * CT Dose Reduction Method: Automated exposure control(AEC) and iterative recon COMPARISON: Prior lung screen dated 10/08/2023 RESULT: Are nodules present? Yes, 6 or more nodules Other lung nodule comments: 8 mm nodule left upper lobe (99) and surrounding ill-defined nodular opacities new from prior. Nodular consolidation right middle lobe measuring at least 16 mm (198) new from prior. 11 mm right apical nodule (32) unchanged. 6 mm subpleural right lower lobe nodule (181) unchanged. Other findings: Trivial coronary calcifications. Mild degenerative changes of the thoracic spine. Bronchial thickening and severe upper lobe predominant emphysema. Patchy groundglass opacity in the left upper lobe and right lower lobe as well as peribronchial consolidation in the right middle lobe and patchy nodular consolidation in the anterior left upper lobe most likely representing infection. Incidental coronary calcium as automatically processed and calculated using AI: Total Coronary Calcium Score = [1-99] Agatston Units Percentile Rank (age and gender matched relative to reference population): [25th-75th] percentile* [* https://www.pettit-nhlbi.org/ca lcium/input.aspx] DIVISION OF RADIOLOGY Provider, [facility] - 10/19/2024 * * *Final Report* * * DATE OF EXAM: Oct 19 2024 10:09AM [facility] 0562 - CT LUNG SCREEN [facility] / PROCEDURE REASON: Former cigarette smoker * * * * Physician Interpretation * * * * EXAMINATION: CHEST CT WITHOUT CONTRAST (LOW-DOSE CT LUNG CANCER SCREENING PROTOCOL) CLINICAL HISTORY: Lung cancer LDCT screening ? absence of signs or symptoms of lung cancer. Personal history of nicotine dependence. Subsequent (annual) Technique: Spiral CT acquisition of the chest from the thoracic inlet to the upper abdomen without contrast. MQ: CTLCS_6 Patient characteristics: * Ddhj-mt-Zucqr: 1955; Age at exam: 69 years * Gender: Female * Lung Disease: Asymptomatic (no signs or symptoms of lung disease) * Number of Pack Years: 38 * Current smoker (=0) or Number of Years since Quit: 15 * Ordering provider and NPI: MARICRUZ CAMP [id number] * Interpreting radiologist and NPI: Nicole [id number] Exam acquisition parameters: * Exam Date: 10/19/2024 10:09 AM * Site: [facility] * * CT System Ms Sql Server Developer: Siemens * CT System Model: Sensation * Tube Current-Time (mA-sec): 44 * Peak Voltage (kV): 120V * Scan Time (sec): 11.36 * Scan Volume (z-length, cm): -30.30 * Pitch: 0.75 * Slice Thickness (mm): 1.5 * CT Dose-Length Product: 134 mGy*cm * CT Dose Index: 3.42mGy * CT Dose Reduction Method: Automated exposure control(AEC) and iterative recon COMPARISON: Prior lung screen dated 10/08/2023 RESULT: Are nodules present? Yes, 6 or more nodules Other lung nodule comments: 8 mm nodule left upper lobe (99) and surrounding ill-defined nodular opacities new from prior. Nodular consolidation right middle lobe measuring at least 16 mm (198) new from prior. 11 mm right apical nodule (32) unchanged. 6 mm subpleural right lower lobe nodule (181) unchanged. Other findings: Trivial coronary calcifications. Mild degenerative changes of the thoracic spine. Bronchial thickening and severe upper lobe predominant emphysema. Patchy groundglass opacity in the left upper lobe and right lower lobe as well as peribronchial consolidation in the right middle lobe and patchy nodular consolidation in the anterior left upper lobe most likely representing infection. Incidental coronary calcium as automatically processed and calculated using AI: Total Coronary Calcium Score = [1-99] Agatston Units Percentile Rank (age and gender matched relative to reference population): [25th-75th] percentile* [* https://www.pettit-nhlbi.org/ca lcium/input.aspx] IMPRESSION IMPRESSION: LungRADS category: 0 LungRADS modifier: None LungRADS 0 reason: n/a Recommendations: Additional lung cancer screening CT images and/or comparison to prior chest CT examinations is needed. Reference: [employer]. Lung CT Screening Reporting and Data System (Lung-RADS). Available at: http://www.acr.org/Quality-Sa fety/Resources/LungRADS Personal Lines Account Manager: PAT Transcribe Date/Time: Oct 19 2024 11:21A Dictated by : VIDAL PULLIAM MD This examination was interpreted and the report reviewed and electronically signed by: VIDAL PULLIAM MD on Oct 19 2024 11:28AM EST [facility] Radiology Study observation (narrative) [facility] CT Chest for screening WO co ntrastOrdered By: [facility] Provider on 10-19-2024 [facility] CT LUNG SCREEN WO IVCONon CT LUNG SCREEN WO IVCON * * *Final Report* * * DATE OF EXAM: Oct 19 2024 10:09AM [facility] 0562 - CT LUNG SCREEN WO IVCON / PROCEDURE REASON: Former cigarette smoker * * * * Physician Interpretation * * * * EXAMINATION: CHEST CT WITHOUT CONTRAST (LOW-DOSE CT LUNG CANCER SCREENING PROTOCOL) CLINICAL HISTORY: Lung cancer LDCT screening ? absence of signs or symptoms of lung cancer. Personal history of nicotine dependence. Subsequent (annual) Technique: Spiral CT acquisition of the chest from the thoracic inlet to the upper abdomen without contrast. MQ: CTLCS_6 Patient characteristics: * Lail-di-Tijbf: 1955; Age at exam: 69 years * Gender: Female * Lung Disease: Asymptomatic (no signs or symptoms of lung disease) * Number of Pack Years: 38 * Current smoker (=0) or Number of Years since Quit: 15 * Ordering provider and NPI: MARICRUZ CAMP [id number] * Interpreting radiologist and NPI: Nicole [id number] Exam acquisition parameters: * Exam Date: 10/19/2024 10:09 AM * Site: [facility] * * CT System Ms Sql Server Developer: Siemens * CT System Model: Sensation * Tube Current-Time (mA-sec): 44 * Peak Voltage (kV): 120V * Scan Time (sec): 11.36 * Scan Volume (z-length, cm): -30.30 * Pitch: 0.75 * Slice Thickness (mm): 1.5 * CT Dose-Length Product: 134 mGy*cm * CT Dose Index: 3.42mGy * CT Dose Reduction Method: Automated exposure control(AEC) and iterative recon COMPARISON: Prior lung screen dated 10/08/2023 RESULT: Are nodules present? Yes, 6 or more nodules Other lung nodule comments: 8 mm nodule left upper lobe (99) and surrounding ill-defined nodular opacities new from prior. Nodular consolidation right middle lobe measuring at least 16 mm (198) new from prior. 11 mm right apical nodule (32) unchanged. 6 mm subpleural right lower lobe nodule (181) unchanged. Other findings: Trivial coronary calcifications. Mild degenerative changes of the thoracic spine. Bronchial thickening and severe upper lobe predominant emphysema. Patchy groundglass opacity in the left upper lobe and right lower lobe as well as peribronchial consolidation in the right middle lobe and patchy nodular consolidation in the anterior left upper lobe most likely representing infection. Incidental coronary calcium as automatically processed and calculated using AI: Total Coronary Calcium Score = [1-99] Agatston Units Percentile Rank (age and gender matched relative to reference population): [25th-75th] percentile* [* https://www.pettit-nhlbi.org/ca lcium/input.aspx] IMPRESSION: LungRADS category: 0 LungRADS modifier: None LungRADS 0 reason: n/a Recommendations: Additional lung cancer screening CT images and/or comparison to prior chest CT examinations is needed. Reference: [employer]. Lung CT Screening Reporting and Data System (Lung-RADS). Available at: http://www.acr.org/Quality-Sa fety/Resources/LungRADS Personal Lines Account Manager: PAT Transcribe Date/Time: Oct 19 2024 11:21A Dictated by : VIDAL PULLIAM MD This examination was interpreted and the report reviewed and electronically signed by: VIDAL PULLIAM MD on Oct 19 2024 11:28AM EST [id number] Normal [facility] CNOVon 06-26-2024 CNOV Office Visit (PULMWS ) LISA LUCERO ([id number]) 1955 F Date Time Provider Department 06/26/24 11:45 AM DIANA GONZALEZ PULMWS During your visit today, we recorded the following information about you: Pulse Respiration Blood pressure Weight 80/minute 15/minute 136/78 115.2 kg Diana Gonzalez MD 06/26/2024 2:11 PM Signed . [facility] [place] Note Patient name: Lisa Lucero PCP: Phuc Martines DO CC: Follow-up COPD HPI: Lisa Lucero 68 year old female former [id number] smoker, quitting in 2008 with PMH significant for morbid obesity, severe COPD, chronic hypoxemic respiratory failure, CAD, HTN, ROXY presenting for routine follow-up. Current therapy consists of Trelegy Ellipta with as needed albuterol. She requires 5 to 6 L of oxygen. Patient prefers POC but inadequate oxygenation with pulse mode. She finally agreed to using tanks with continuous flow and has noted improvement in her shortness of breath. She participates in lung cancer screening, due for her last CT screening in September. From a pulmonary standpoint she states she has been doing fairly well. She denies chronic cough, mucus production, wheezing. Main symptom is BRAGG. She has not recently been ill with any upper respiratory infection nor required hospitalization. DME: Bruce DATA: COPD Assessment Test I never cough 0 1 2 3 4 5 I cough all the time; Score 1 I have no phlegm 0 1 2 3 4 5 My chest is completely full of phlegm; Score 2 My chest does not feel tight at all 0 1 2 3 4 5 My chest chest feels very tight; Score 1 When I walk up a hill or one flight of stairs I am not breathless 0 1 2 3 4 5 When I walk up a hill or one flight or stairs I am very breathless; Score 5 I am not limited doing any activities at home 0 1 2 3 4 5 I am very limited doing activities at home; Score 4 I am confident leaving my home despite my lung condition 0 1 2 3 4 5 I am not at all confident leaving my home because of my lung condition; Score 3 I sleep soundly 0 1 2 3 4 5 don't sleep soundly because of my lungs; Score 3 I have lots of energy 0 1 2 3 4 5 I have no energy at all; Score 4 Total Score: 23 Imaging / Diagnostic Studies: DATE OF EXAM: Oct 08 2023 1:24PM [facility] 0562 - CT LUNG SCREEN WO IVCON / PROCEDURE REASON: Former cigarette smoker COMPARISON: Prior chest CT dated August 29, 2022 RESULT: Are nodules present? Yes, 1-5 nodules Lung nodule comments: 11 mm right apical nodule (31) unchanged. 6 mmsubpleural right lower lobe nodule (176) unchanged. 4 mm right lowerlobe nodule (213) unchanged. Few other scattered tiny nodules unchanged. No new nodules. Other findings: Mild coronary calcifications. Mild degenerative changes of the thoracic spine. Bronchial thickening, severe upper lobe predominant emphysema, mosaic attenuation from chronic small airway inflammation, and scattered linear opacities likely atelectasis. I personally viewed the images which shows stable spiculated right upper lobe nodule and emphysema PAST MEDICAL HISTORY No date: Chronic hypoxemic respiratory failure (HCC) 02/03/2010: COPD (chronic obstructive pulmonary disease) (HCC) No date: Coronary artery disease Comment: No NE, CHF. No heart cath. No date: Diverticulosis of colon (without mention of hemorrhage) No date: Essential hypertension, benign No date: Fibrocystic breast No date: Former smoker No date: Internal hemorrhoids without mention of complication No date: Leiomyoma of uterus, unspecified No date: Obstructive sleep apnea Comment: Mild. Not prescribed CPAP, only 2L nasal O2. ALLERGIES Allergen Reactions Aleve [Naproxen] Hives Hives, edema of hands within 1 hour of use amLODIPine (NORVASC) 10 mg tablet Take 1 tablet by mouth once daily. svcvembcqli-geukzeysl-xidgfrj r (TRELEGY ELLIPTA) 100-62.5-25 mcg inhalation powder USE 1 INHALATION DAILY INSTRUCTED triamcinolone acetonide (KENALOG) 0.5 % cream Apply 1 application to affected area two times a day as needed (foot rash, eczema). For rash/itching. Apply sparingly. Avoid face/skin fold. triamterene-hydroCHLOROthiazi de (DYAZIDE) 37.5-25 mg per capsule Take 1 capsule by mouth once daily. ipratropium-albuterol (DUONEB) 0.5 mg-3 mg(2.5 mg base)/3 mL nebu Inhale 3 mL as instructed four times daily. Inhale via nebulizer over 5-15 minutes. OXYGEN, HOME THERAPY, 3.5L at night and 6L with exertion albuterol HFA (PROVENTIL HFA, VENTOLIN HFA) 90 mcg/actuation inhaler Inhale 2 Puffs as instructed every 6 hours as needed for wheezing/shortness of breath. COMPOUNDED PRESCRIPTION Please dispense nebulizer and supply kit, including tubing, mouth piece, and hose. Assoc diagnosis: J44.9. Dispense: 1 each, Refills: 99. ASCORBIC ACID/BIOFLAVONOIDS (SIVAN C ORAL) Take 1 capsule by mouth once daily. COMPOUNDED PRESC (more content not included)... Normal [facility] Culture, Blood (WB)on 2023 CUB Blood cultures x2 fr om two different sites No growth in 5 days. Normal [facility] Comment on above: Performed By: #### L 500.2500, L100.0100 #### [facility] [address] [place], [address] Basic Metabolic Profile (BMP )on 05-06-2024 BUN/CRE 19.6 RATIO Normal 08-16 [facility] Comment on above: Order Comment: Blood cultures x2 from two different sites Performed By: #### L 500.2500, L100.0100 #### [facility] [address] [place], [address] CA,Total 9.2 mg/dL Normal 8.5-10.1 [facility] Comment on above: Order Comment: Blood cultures x2 from two different sites Performed By: #### L 500.2500, L100.0100 #### [facility] [address] [place], [address] Chloride [Moles/Vol] 103 mmol/L Normal 98-107 [facility] Comment on above: Order Comment: Blood cultures x2 from two different sites Performed By: #### L 500.2500, L100.0100 #### [facility] [address] [place], [address] CO2 [Moles/Vol] 36.0 mmol/L High 21.0-32.0 [facility] Comment on above: Order Comment: Blood cultures x2 from two different sites Performed By: #### L 500.2500, L100.0100 #### [facility] [address] [place], [address] Creatinine [Mass/Vol] 0.66 mg/dL Normal 0.55-1.02 [facility] Comment on above: Order Comment: Blood cultures x2 from two different sites Result Comment: The validity of the calculated GFR GFRAA in patients over 70 years has not been determined. Clinical correlation is essential. Performed By: #### L 500.2500, L100.0100 #### [facility] [address] [place], [address] EST GFR - AA 114 mL/min Normal >60 [facility] Comment on above: Order Comment: Blood cultures x2 from two different sites Result Comment: Afri can French GFR Calc Performed By: #### L 500.2500, L100.0100 #### [facility] [address] [place], [address] GAP 3 Low 5-15 [facility] Comment on above: Order Comment: Blood cultures x2 from two different sites Performed By: #### L 500.2500, L100.0100 #### [facility] [address] [place], [address] GFR/1.73 sq M.predicted among non-blacks MDRD (S/P/Bld) [Vol rate/Area] 95 mL/min/{1.73_m2} Normal >60 [facility] Comment on above: Order Comment: Blood cultures x2 from two different sites Result Comment: Non- GFR Calc Performed By: #### L 500.2500, L100.0100 #### [facility] [address] [place], [address] Glucose [Mass/Vol] 118 mg/dL High 74-106 [facility] Comment on above: Order Comment: Blood cultures x2 from two different sites Result Comment: Fast ing Glucose result from 100 to 125 mg/dL suggests IMPAIRED HOMEOSTASIS per A.D.A. criteria. Performed By: #### L 500.2500, L100.0100 #### [facility] [address] [place], [address] Potassium [Moles/Vol] 3.4 mmol/L Low 3.5-5.1 [facility] Comment on above: Order Comment: Blood cultures x2 from two different sites Performed By: #### L 500.2500, L100.0100 #### [facility] [address] [place], [address] Sodium [Moles/Vol] 142 mmol/L Normal 136-145 [facility] Comment on above: Order Comment: Blood cultures x2 from two different sites Performed By: #### L 500.2500, L100.0100 #### [facility] [address] [place], [address] Urea nitrogen [Mass/Vol] 13 mg/dL Normal 7-18 [facility] Comment on above: Order Comment: Blood cultures x2 from two different sites Performed By: #### L 500.2500, L100.0100 #### [facility] [address] [place], [address] CBC W/Diff, Automatedon 07-1 0-2024 Absolute Lymph 0.79 X10 3/uL Low 0.83-4.51 [facility] Comment on above: Performed By: #### L 500.2500, L100.0100 #### [facility] [address] [place], [address] Absolute Neut 5.7 X10 3/uL Normal 2.0-7.7 [facility] Comment on above: Performed By: #### L 500.2500, L100.0100 #### [facility] [address] [place], [address] Basophils/100 WBC (Bld) 0.7 % Normal 0-1 [facility] Comment on above: Performed By: #### L 500.2500, L100.0100 #### [facility] [address] [place], [address] Eosinophils/100 WBC (Bld) 1.5 % Normal 0-5 [facility] Comment on above: Performed By: #### L 500.2500, L100.0100 #### [facility] [address] [place], [address] Erythrocyte distribution width (RBC) [Ratio] 14.6 % Normal 11.6-14.6 [facility] Comment on above: Performed By: #### L 500.2500, L100.0100 #### [facility] [address] [place], [address] Hematocrit (Bld) [Volume fraction] 39.7 % Normal 37-47 [facility] Comment on above: Performed By: #### L 500.2500, L100.0100 #### [facility] [address] [place], [address] Hemoglobin (Bld) [Mass/Vol] 13.0 g/dL Normal 12.0-15.0 [facility] Comment on above: Performed By: #### L 500.2500, L100.0100 #### [facility] [address] [place], [address] IG% 0.600 Normal 0.0-0.9 [facility] Comment on above: Result Comment: IG% - Immature Granulocytes (promyelocytes, myelocytes and metamyelocytes) > 1% indicates that a LEFT SHIFT is Present. Performed By: #### L 500.2500, L100.0100 #### [facility] [address] [place], [address] Lymphocytes/100 WBC (Bld) 10.9 % Low 19-41 [facility] Comment on above: Performed By: #### L 500.2500, L100.0100 #### [facility] [address] [place], [address] MCH (RBC) [Entitic mass] 31.7 pg Normal 27.0-32.0 [facility] Comment on above: Performed By: #### L 500.2500, L100.0100 #### [facility] [address] [place], [address] MCHC (RBC) [Mass/Vol] 32.7 g/dL Normal 32-36 [facility] Comment on above: Performed By: #### L 500.2500, L100.0100 #### [facility] [address] [place], [address] MCV (RBC) [Entitic vol] 96.8 fL Normal 81-99 [facility] Comment on above: Performed By: #### L 500.2500, L100.0100 #### [facility] [address] [place], [address] Monocytes/100 WBC (Bld) 7.8 % Normal 0-10 [facility] Comment on above: Performed By: #### L 500.2500, L100.0100 #### [facility] [address] [place], [address] Neutrophils/100 WBC (Bld) 78.5 % High 47-70 [facility] Comment on above: Performed By: #### L 500.2500, L100.0100 #### [facility] [address] [place], [address] Nucleated RBC (Bld) [#/Vol] 0 10*3/uL Normal 0-5 [facility] Comment on above: Performed By: #### L 500.2500, L100.0100 #### [facility] [address] [place], [address] Platelet mean volume (Bld) [Entitic vol] 10.6 fL Normal 6.2-12.0 [facility] Comment on above: Performed By: #### L 500.2500, L100.0100 #### [facility] [address] [place], [address] Platelets (Bld) [#/Vol] 261 10*3/uL Normal 150-450 [facility] Comment on above: Performed By: #### L 500.2500, L100.0100 #### [facility] [address] [place], [address] RBC (Bld) [#/Vol] 4.10 10*6/uL Low 4.2-5.4 [facility] Comment on above: Performed By: #### L 500.2500, L100.0100 #### [facility] [address] [place], [address] RDW SD 52.0 fl High 35.1-43.9 [facility] Comment on above: Performed By: #### L 500.2500, L100.0100 #### [facility] [address] [place], [address] WBC (Bld) [#/Vol] 7.3 10*3/uL Normal 4.4-11.0 [facility] Comment on above: Performed By: #### L 500.2500, L100.0100 #### [facility] [address] [place], [address] Emergency Department Summary on 05-06-2024 Emergency Department Summary [facility] Medical Records Department [address] [place] [address] Emergency Department Summary 05/06/24 MR#: [id number] Acct: [id number] Name: LISA LUCERO Rep #: [id number] : 1955 68 From: Dane Kurtz DO PCP: Dr. Phuc Martines DO Status:DEP ER Location: ED HPI History of Present Illness HPI Narrative: Patient presents with redness to the lateral aspect of her right leg that has been getting worse over the past month. Patient states she was recently on a course of doxycycline for 1 week. Patient states it started to improve but then has returned. Patient states she was seen at the urgent care at the [facility] prior to starting the doxycycline. Patient states that he took a culture of the wound which was showed skin lyssa. Patient denies any fevers or chills. Patient denies any discharge or drainage. Patient denies any paresthesias or weakness. Patient states her initial injury was when she tripped over her oxygen tank and caused a scrape in her right lower leg. Chief Complaint: Wound Informant: patient Onset/Context/Timing Onset: Month(s) (1) Context: Gradual Onset Timing: Continuous Quality of Pain: Dull and Aching Location: Lateral aspect right lower leg Worsened by: Nothing Relieved by: Nothing Associated Symptoms Associated Symptoms: Negative for Parasthesia, Weakness or Loss of Funtion Narrative Tetanus Immunization: 5-10 years [facility] Medical History (Updated 05/06/24 @ 11:[address] Dane Kurtz, ) COPD (chronic obstructive pulmonary disease) Home Medications ???Medication ???Instructions ???Recorded ???Last Taken ???Type Beclomethasone Diprop Inhaler 2 puff inhalation BID breathing 04/15/17 04/15/17 15:30 History [Qvar 80 Mcg Inhaler] albuterol sulfate 90 mcg/actuation 2 puff inhalation Q4H PRN PRN 04/15/17 04/15/17 18:00 History aerosol inhaler (ProAir HFA) Shortness Of Breath amlodipine 5 mg tablet 5 mg PO DAILY blood pressure 04/15/17 04/15/17 02:00 History multivitamin (Daily Multiple 1 ea PO DAILY 04/15/17 04/15/17 02:00 History tablet) salmeterol 50 mcg/dose blister 1 puff inhalation Q12 04/15/17 04/15/17 15:30 History powder for inhalation (Serevent Diskus) tiotropium bromide 18 mcg capsule 1 puff inhalation DAILY 04/15/17 04/15/17 02:00 History with inhalation device (Spiriva with HandiHaler) triamterene 37.5 1 ea PO DAILY blood pressure 04/15/17 04/15/17 02:00 History mg-hydrochlorothiazide 25 mg tablet guaifenesin 1,200 mg tablet, 1,200 mg PO BID #20 tabs 04/17/17 Unknown Rx extended release 12 hr (Mucus Relief ER) levofloxacin 500 mg tablet 500 mg PO DAILY #5 tabs 04/17/17 Unknown Rx nystatin 100,000 unit/mL oral 500,000 unit (5 mL) PO 4X/DAY ##1 04/17/17 Unknown Rx suspension prednisone 10 mg tablets in a dose 10 mg PO DAILY ##30 04/17/17 Unknown Rx pack Oxygen, Home [Home Oxygen] 2 - 4 lpm 11/13/17 Unknown History ascorbic acid (vitamin C) 500 mg 500 mg PO 11/13/17 Unknown History capsule cephalexin 500 mg capsule 500 mg PO Q6 #40 CAPSULES 05/06/24 Unknown Rx Allergy/AdvReac Type Severity Reaction Status Date / Time No Known Allergies Allergy Verified 05/06/24 10:21 Surgical History (Updated 05/06/24 @ 11:[address] Dane Kurtz, DO) Hx of inguinal herniorrhaphy Social History Smoking Status: Former smoker ROS ROS ED Constitutional Constitutional ED: Denies chills or fever(s) Eyes Eyes: Denies blurry vision or change in vision ENT ENT ED: Denies rhinorrhea or sore throat Cardiovascular Cardiovascular: Denies chest pain or palpitations Respiratory/Chest Respiratory/Chest: Reports dyspnea; Denies cough Gastrointestinal Gastrointestinal: Denies nausea or vomiting Genitourinary Genitourinary ED: Denies dysuria or hematuria Musculoskeletal Musculoskeletal: Denies back pain or neck pain Integumentary Denies abscess or rash Neurologic Neurologic: Denies headache(s) or weakness Allergic/Immunologic Allergic/Immunologic ED: Denies mouth swelling or urticaria EXAM Physical Exam Const Vital Signs: 05/06/24 10:21 Temperature 97.6 F L Temperature Source Temporal Pulse Rate 91 Respiratory Rate 20 H Blood Pressure 161/76 H Blood Pressure Mean 104 Pulse Ox 90 Oxygen Delivery Method Nasal Cannula Oxygen Flow Rate (L/min) 2 Positive well nourished and well developed General Appearance ED: well developed and NAD HEENT Reports moist mucous membranes Extremity Extremity Narrative: There is some tenderness, erythema, and warmth over the lateral aspect of the right lower leg. There is a superficial healing abrasion over this area. There is no fluctuance. There is no evidence of any abscess. There is full range of motion. Strength is 5/5 bilaterally in the lo (more content not included)... Normal [facility] Bacteria Wnd Culton 04-26-20 24 Bacteria identified Cx Nom (Wound) ORGANISM ID: 1 Rare skin lyssa GRAM STAIN: No organisms seen No Polymorphonuclear Leukocytes Normal [facility] Comment on above: Performed By: #### 3 024-7, [id number], [id number], [id number] #### [facility] CLIA [id number] [address] [place] [address] [place] CNOVon 04-26-2024 CNOV Office Visit (UCWSTR ) LISA LUCERO ([id number]) 1955 F Date Time Provider Department 04/26/24 11:00 AM DAMON EUGENE WSTR During your visit today, we recorded the following information about you: Temperature Pulse Respiration Blood pressure 98.6 degrees 68/minute 20/minute 144/68 Weight 118 kg Quinton EugeneiniqueJAKI.CULTURE MANAGER 04/26/2024 11:15 AM Signed Subjective Patient came in with complaints of possible wound infection on the right calf. Patient says she fell 2 weeks ago. Patient says she has been treating at home with antibiotic ointment. Patient denies any fever chills nausea vomiting. The history is provided by the patient. No english language learner tutor was used. Review of Systems Constitutional: Negative. Skin: Negative. Objective Physical Exam Constitutional: Appearance: Normal appearance. Pulmonary: Effort: Pulmonary effort is normal. Musculoskeletal: Legs: Comments: Scabbed area were marked above. Mild erythema around area and swelling. Area is draining some serosanguineous fluid. Neurological: Mental Status: She is alert. PAST MEDICAL HISTORY Diagnosis Date Chronic hypoxemic respiratory failure (HCC) COPD (chronic obstructive pulmonary disease) (HCC) 02/03/2010 Coronary artery disease No NE, CHF. No heart cath. Diverticulosis of colon (without mention of hemorrhage) Essential hypertension, benign Fibrocystic breast Former smoker Internal hemorrhoids without mention of complication Leiomyoma of uterus, unspecified Obstructive sleep apnea Mild. Not prescribed CPAP, only 2L nasal O2. PAST SURGICAL HISTORY Procedure Laterality Date BREAST LUMPECTOMY HX Right 1997 COLONOSCOPY FLX DX W/COLLJ SPEC WHEN PFRMD 08/27/08 repeat due 2017 COLONOSCOPY FLX DX W/COLLJ SPEC WHEN PFRMD 09/10/2018 Colonoscopy - due 2027 INGUINAL HERNIA REPAIR HX 1976 bilateral PAST SURGICAL HISTORY OF hemangioma left cheek REMOVAL OF IMPACTED TOOTH - COMPLETELY BONY WISDOM TEETH ALLERGIES Aleve [Naproxen] MEDICATIONS amLODIPine (NORVASC) 10 mg tablet Take 1 tablet by mouth once daily. wsiipovmopd-iojngyozh-qxsijjg r (TRELEGY ELLIPTA) 100-62.5-25 mcg inhalation powder USE 1 INHALATION DAILY INSTRUCTED triamcinolone acetonide (KENALOG) 0.5 % cream Apply 1 application to affected area two times a day as needed (foot rash, eczema). For rash/itching. Apply sparingly. Avoid face/skin fold. triamterene-hydroCHLOROthiazi de (DYAZIDE) 37.5-25 mg per capsule Take 1 capsule by mouth once daily. ipratropium-albuterol (DUONEB) 0.5 mg-3 mg(2.5 mg base)/3 mL nebu Inhale 3 mL as instructed four times daily. Inhale via nebulizer over 5-15 minutes. OXYGEN, HOME THERAPY, 3.5L at night and 6L with exertion albuterol HFA (PROVENTIL HFA, VENTOLIN HFA) 90 mcg/actuation inhaler Inhale 2 Puffs as instructed every 6 hours as needed for wheezing/shortness of breath. COMPOUNDED PRESCRIPTION Please dispense nebulizer and supply kit, including tubing, mouth piece, and hose. Assoc diagnosis: J44.9. Dispense: 1 each, Refills: 99. ASCORBIC ACID/BIOFLAVONOIDS (SIVAN C ORAL) Take 1 capsule by mouth once daily. COMPOUNDED PRESCRIPTION 3.5L of O2 at night and 6L with exertion. multivitamin tablet Take 1 tablet by mouth once daily. doxycycline monohydrate 100 mg tablet Take 1 tablet by mouth two times a day for 7 days. benzonatate (TESSALON PERLES) 100 mg capsule Take 1 capsule by mouth three times daily as needed for cough. FAMILY HISTORY Problem Relation Age of Onset Cancer Father BLADDER COPD Mother other (Alcoholic) Mother associated with sepsis. Hypertension Maternal Grandmother Thyroid Maternal Grandmother Social History Tobacco Use Smoking status: Former Packs/day: 1.00 Years: 38.00 Additional pack years: 0.00 Total pack years: 38.00 Types: Cigarettes Start date: 1971 Quit date: 12/20/2008 Years since quittin.3 Smokeless tobacco: Never Tobacco comments: Parents smoked in childhood home. Spouse smokes, not in home. Vaping Use Vaping Use: Never used Substance Use Topics Alcohol use: Yes Alcohol/week: 6.0 - 12.0 standard drinks of alcohol Types: 6 - 12 Cans of Beer (12oz) per week Drug use: No ASSESSMENT/PLAN: 1. Skin infection - ICD9: 686.9, ICD10: L08.9 - ABSCESS AND WOUND CULTURE WITH GRAM STAIN - DOXYCYCLINE MONOHYDRATE 100 MG TABLET Was treated due to the erythema and swelling around scabs. Wound culture was sent out. If culture comes back and requires antibiotics to be changed please call and change accordingly. Patient was educated about red flag symptoms to watch for and when to go to the ER. Patient was okay with this care plan. Damon Jas, AVIATION TACTICAL READINESS OFFICER.CULTURE MANAGER Referring Provider: SELF [[id number]] Allergies As of Date: 04/26/2024 Noted Allergy Reaction ALEVE (NAPROXEN) 05/31/2020 4 - Hives Comments: Hives, edema of hands within (more content not included)... Normal [facility] ANUSHA SCREENINGon 09-17-2023 [facility] CBC W Auto Differential pane l (Bld)on 08-14-2023 Basophils (Bld) [#/Vol] 0.06 10*3/uL <0.11 k/uL [facility] Basophils/100 WBC (Bld) 0.8 % [facility] Differential cell count method Nom (Bld) Auto [facility] Eosinophils (Bld) [#/Vol] 0.17 10*3/uL <0.46 k/uL [facility] Eosinophils/100 WBC (Bld) 2.3 % [facility] Erythrocyte distribution width (RBC) [Ratio] 14.0 % 11.5 - 15.0 % [facility] Hematocrit (Bld) [Volume fraction] 45.6 % 36.0 - 46.0 % [facility] Hemoglobin (Bld) [Mass/Vol] 14.5 g/dL 11.5 - 15.5 g/dL [facility] Immature granulocytes (Bld) [#/Vol] 0.04 10*3/uL <0.10 k/uL [facility] Immature granulocytes/100 WBC (Bld) 0.5 % [facility] Lymphocytes (Bld) [#/Vol] 1.10 10*3/uL 1.00 - 4.00 k/uL [facility] Lymphocytes/100 WBC (Bld) 14.8 % [facility] MCH (RBC) [Entitic mass] 31.6 pg 26.0 - 34.0 pg [facility] MCHC (RBC) [Mass/Vol] 31.8 g/dL 30.5 - 36.0 g/dL [facility] MCV (RBC) [Entitic vol] 99.3 fL 80.0 - 100.0 fL [facility] Monocytes (Bld) [#/Vol] 0.61 10*3/uL <0.87 k/uL [facility] Monocytes/100 WBC (Bld) 8.2 % [facility] Neutrophils (Bld) [#/Vol] 5.45 10*3/uL 1.45 - 7.50 k/uL [facility] Neutrophils/100 WBC (Bld) 73.4 % [facility] Nucleated RBC (Bld) [#/Vol] <0.01 k/uL [facility] Nucleated RBC/100 WBC (Bld) [Ratio] 0.0 /100 WBC [facility] Platelet mean volume (Bld) [Entitic vol] 11.7 fL 9.0 - 12.7 fL [facility] Platelets (Bld) [#/Vol] 222 10*3/uL 150 - 400 k/uL [facility] RBC (Bld) [#/Vol] 4.59 10*6/uL 3.90 - 5.20 m/uL [facility] WBC (Bld) [#/Vol] 7.43 10*3/uL 3.70 - 11.00 k/uL [facility] OXIMETRY WITH AMBULATIONon 0 06-13-2023 [facility] [place] ABD SPLEENon 03-06-2023 [facility] No Panel Informationon 10-10 [facility] XR Chest PA and Lateralon IMPRESSION: Overall findings unchanged. Personal Lines Account Manager: PSCB Transcribe Date/Time: Oct 01 2022 5:09P Dictated by : MORAIMA CARDENAS MD This examination was interpreted and the report reviewed and electronically signed by: MORAIMA CARDENAS MD on Oct 01 2022 5:10PM [facility] DIVISION OF RADIOLOGY * * *Final Report* * * DATE OF EXAM: Sep 28 2022 1:22PM WOX 5291 - XR CHEST 2V FRONTAL/LAT / PROCEDURE REASON: multiple diagnoses * * * * Physician Interpretation * * * * EXAMINATION: CHEST RADIOGRAPH (2 VIEW FRONTAL & LATERAL) CLINICAL HISTORY: COVID Bacterial sinusitis MQ: XC2_6 EXAM DATE/TIME: 09/28/2022 1:22 PM COMPARISON: Chest x-ray on 06/28/2015 RESULT: Lines, tubes, and devices: None. Lungs and pleura: There are lucencies in the upper lungs, with somewhat crowding of the pulmonary markings in the lower lungs, suggestive of COPD. Mild atelectasis noted in the lingula and right middle lobe. The lungs are otherwise clear of consolidations. No solid mass. No pleural effusions or pneumothorax. Cardiomediastinal silhouette: Normal cardiomediastinal silhouette. Bones and soft tissues: Unremarkable. DIVISION OF RADIOLOGY Provider, Devi Lexie andrews [place] - 10/01/2022 * * *Final Report* * * DATE OF EXAM: Sep 28 2022 1:22PM WOX 5291 - XR CHEST 2V FRONTAL/LAT / PROCEDURE REASON: multiple diagnoses * * * * Physician Interpretation * * * * EXAMINATION: CHEST RADIOGRAPH (2 VIEW FRONTAL & LATERAL) CLINICAL HISTORY: COVID Bacterial sinusitis MQ: XC2_6 EXAM DATE/TIME: 09/28/2022 1:22 PM COMPARISON: Chest x-ray on 06/28/2015 RESULT: Lines, tubes, and devices: None. Lungs and pleura: There are lucencies in the upper lungs, with somewhat crowding of the pulmonary markings in the lower lungs, suggestive of COPD. Mild atelectasis noted in the lingula and right middle lobe. The lungs are otherwise clear of consolidations. No solid mass. No pleural effusions or pneumothorax. Cardiomediastinal silhouette: Normal cardiomediastinal silhouette. Bones and soft tissues: Unremarkable. IMPRESSION IMPRESSION: Overall findings unchanged. Personal Lines Account Manager: PAT Transcribe Date/Time: Oct 01 2022 5:09P Dictated by : MORAIMA CARDENAS MD This examination was interpreted and the report reviewed and electronically signed by: MORAIMA CARDENAS MD on Oct 01 2022 5:10PM EST [facility] XR Chest PA and LateralOrder ed By: Ccf Provider on 10-01-2022 [facility] XR Chest PA and Lateralon Radiology Study observation (narrative) [facility] ANUSHA SCREENINGon 09-11-2022 [facility] US ABD SPLEENon 09-03-2022 [facility] CT CHEST WO IVCONon 08-30-20 Radiology Result ACTIONABLE Abnormal [facility] OXIMETRY WITH AMBULATIONon 0 03-16-2022 [facility] XR Foot - right AP and Later al and obliqueon 01-10-2021 IMPRESSION: Mild deg enerative changes Personal Lines Account Manager: PAT Transcribe Date/Time: Jan 10 2021 11:21A Dictated by : ROXANNE MARTEL MD This examination was interpreted and the report reviewed and electronically signed by: ROXANNE MARTEL MD on Jan 10 2021 11:23AM EST DIVISION OF RADIOLOGY * * *Final Report* * * DATE OF EXAM: Jan 10 2021 11:20AM WOX 5337 - XR FOOT 3V AP/LAT/OBL RT / PROCEDURE REASON: Acute gout involving toe of right foot, unspecified cause * * * * Physician Interpretation * * * * HISTORY: Acute gout involving toe of right foot, unspecified cause Right great toe and medial forefoot pain with some lateral mid and hindfoot pain x 8 days without injury. TECHNIQUE: 3 upright views COMPARISON: None RESULT: Mild degenerative spurring involving the right first MP joint. Mild plantar calcaneal spurring. Normal mineralization. Joint spaces appear intact. No erosions. No fracture. DIVISION OF RADIOLOGY Provider, Shannon Owen [facility] - 01/10/2021 * * *Final Report* * * DATE OF EXAM: Jan 10 2021 11:20AM WOX 5337 - XR FOOT 3V AP/LAT/OBL RT / PROCEDURE REASON: Acute gout involving toe of right foot, unspecified cause * * * * Physician Interpretation * * * * HISTORY: Acute gout involving toe of right foot, unspecified cause Right great toe and medial forefoot pain with some lateral mid and hindfoot pain x 8 days without injury. TECHNIQUE: 3 upright views COMPARISON: None RESULT: Mild degenerative spurring involving the right first MP joint. Mild plantar calcaneal spurring. Normal mineralization. Joint spaces appear intact. No erosions. No fracture. IMPRESSION IMPRESSION: Mild degenerative changes Personal Lines Account Manager: [facility] Transcribe Date/Time: Jan 10 2021 11:21A Dictated by : ROXANNE MARTEL MD This examination was interpreted and the report reviewed and electronically signed by: ROXANNE MARTEL MD on Jan 10 2021 11:23AM EST [facility] Radiology Study observation (narrative) [facility] XR Foot - right AP and Later al and obliqueOrdered By: Ccf Provider on 01-10-2021 [facility] ANES Regina 09-10-2018 ANES POST HNO ID: [id number] thor: Cornelio DangSerchinae: AnesthesiologyAuthor Type: AnesthesiologistType: Anesthesia PostOpFiled: 09/10/2018 1:54 PMNote Text:POST ANESTHESIA EVALUATION NOTESERVICE DATE: 09/10/2018SERVICE TIME: 1:54 PMDOB: 1955Vitals: 09/10/1812Temp: 36.3 ?C (97.3 ?F) 36.7 ?C (98.1 ?F) 09/10/1813BP: 121/57 144/62 146/67 146/70 09/10/1813Pulse: 78 75 78 79 09/10/1813Resp: 16 16 16 16 09/10/1813SpO2: 97% 95% 93% 93%Validated Vital Signs: YesPOST ANES STATUS: No apparent anesthetic complications. The patient isappropriately hydrated with stable respiratory and cardiovascular status.Patient has safe and adequate airway control. The patient has appropriatepain relief and no significant post operative nausea or vomiting. Thepatient has achieved baseline mental status.Further assessment by Anesthesia Service: NoneOther Remarks:SIGNATURE: Cornelio Dang MD PATIENT NAME: Lisa WardATE: September 10, 2018 : 1:54 PM PAGER/CONTACT #: [phone] [facility] ANES PREOPon 09-10-2018 ANES PREOP HNO ID: [id number] thor: Ann-Marie Garciaervice: AnesthesiologyAuthor Type: AnesthesiologistType: Anesthesia PreOpFiled: 09/10/2018 11:07 AMNote Text: ANESTHESIOLOGY DAY OF SURGERY NOTESERVICE DATE: 09/10/2018SERVICE TIME: 11:06 AMDOB: 1955Procedure(s) (LRB):COLONOSCOPY (N/A)Surgeon(s):Margot YorkanEstimated body mass index is 43.94 kg/m? as calculated from the following: Height as of this encounter: 162.6 cm (5' 4). Weight as of this encounter: 116.1 kg (256 lb).Most recent hematocrit and potassium results:Hematocrit 46.7 02/01/2017Potassium 4.0 05/02/2018ANES DOS/PREOP NOTE:Vitals: 043BP: 146/83Pulse: 91Resp: 16Temp: (!) 63 ?C (145.4 ?F)SpO2: 94%Weight: 116.1 kg (256 lb)Height: 162.6 cm (5' 4)ACTIVE PROBLEM LISTLeiomyoma of Uterus, UnspecifiedOBESITYEssential HypertensionPAIN FLANKIrritable Bowel SyndromeCopd (Chronic Obstructive Pulmonary Disease) ([facility])HypoxemiaFormer SmokerObstructive Sleep ApneaWell Adult ExamChronic Obstructive Pulmonary Disease ([facility])Obesity, Class III, BMI >= 40 (morbid obesity) E66.01Oxygen DependentAcute Bronchitis With Chronic Obstructive Pulmonary Disease (Copd) ([facility])Impaired Fasting GlucoseScreening for Colon CancerPAST MEDICAL HISTORYDiagnosis Date- COPD (chronic obstructive pulmonary disease) ([facility]) 02/03/2010- Coronary artery disease No NE, CHF. No heart cath.- Diverticulosis of colon (without mention of hemorrhage)- Essential hypertension, benign- Fibrocystic breast- Former smoker- Internal hemorrhoids without mention of complication- Leiomyoma of uterus, unspecified- Obstructive sleep apnea Mild. Not prescribed CPAP, only 2L nasal O2.PAST SURGICAL HISTORYProcedure Laterality Date- BREAST LUMPECTOMY HX Right 1997- COLONOSCOP W/ OR W/O [facility] SPEC 08/27/08 repeat due 2017- IMPACT TOOTH REMOV COMP BONY WISDOM TEETH- INGUINAL HERNIA REPAIR HX 1975 bilateral- PAST SURGICAL HISTORY OF hemangioma left cheekFAMILY HISTORYProblem Relation Age of Onset- Cancer Father BLADDER- COPD Mother- other (Alcoholic) Mother associated with sepsis.- Hypertension Maternal Grandmother- Thyroid Maternal GrandmotherSocial History:Social HistorySubstance Use Topics- Smoking status: Former Smoker Packs/day: 1.00 Years: 38.00 Types: Cigarettes Start date: 1971 Quit date: 12/20/2008- Smokeless tobacco: Never Used Comment: Parents smoked in childhood home. Spouse smokes, not in home.- Alcohol use 9.0 - 18.0 oz/week 6 - 12 Cans of Beer (12oz) per weekNo current facility-administered medications on file prior to encounter.Current Outpatient Prescriptions on File Prior to Encounter:Lactobacillus acidophilus (PROBIOTIC ORAL) Take by mouth.xiwsktprblo-oisymjifd-w ilanter (TRELEGY ELLIPTA) 100-62.5-25 mcg dsdvInhale 1 Puff as instructed once daily.NYAMYC powder APPLY 1 APPLICATION TO AFFECTED AREA FOUR TIMES A DAY(Patient taking differently: prn)triamterene-hydrochloroth iazide 37.5-25 mg per capsule TAKE 1 CAPSULEDAILYCOMPOUNDED PRESCRIPTION Please do nocturnal oximetry on [address] L. DME: [facility].ipratropium-albut alan (DUONEB) 0.5 mg-3 mg(2.5 mg base)/3 mL nebu Inhale 3mL as instructed four times daily. Inhale via nebulizer over 5-15 minutes.(Patient taking differently: Inhale 3 mL as instructed as needed. Inhalevia nebulizer over 5-15 minutes.)COMPOUNDED PRESCRIPTION Please dispense nebulizer and supply kit,including tubing, mouth piece, and hose. Assoc diagnosis: J44.9.Dispense: 1 each, Refills: 99.albuterol HFA (PROAIR HFA) 90 mcg/actuation inhaler Inhale 2 Puffs asinstructed every 4 hours as needed for Wheezing/Shortness of Breath.COMPOUNDED PRESCRIPTION Please perform nocturnal oximetry on 2 lpm O2.DX:Severe COPD, chronic hypoxemic respiratory failureASCORBIC ACID/BIOFLAVONOIDS (SIVAN C ORAL) Take 1 capsule by mouth oncedaily.COMPOUNDED PRESCRIPTION 2L of O2 at night and with exertion.multivitamin tablet Take 1 tablet by mouth once daily.Current Facility-Administered Medications:NaCl 0.9% iv infusion 30 mL/hr INTRAVENOUS CONTINUOUS Margot T GuttmanLast Rate: 30 mL/hr at 09/10/18 1100 30 mL/hr at 09/10/18 1100Allergies: ALLERGIESNo Known AllergiesDOS EXAM: Adequate NPO Status: YesAnesthetic Risks, Benefits, Alternatives, Personnel and Consent Discussed:YesPatient agrees to proceed: YesPrevious Anesthesia: No history of adverse eventAirway Assessment: MP 1; Neck ROM: Full ROM without neurologic symptoms;Airway Evaluation: No significant abnormalitiesSymptoms of Sleep Apnea: BMI > 35 and Age over 50 (63 year old)Dentition: Teeth intactAdditional Physical Exam:Lungs: Patient health status unchanged since recent history and physical.See history and physical for exam findings.Cardiac: Patient health status unchanged since recent history andphysical. See history and physical for exam findings.Additional Pertinent Findings: N/ABlood Products: Not anticipated for this procedureAnesthetic Plan: MAC with general as back upAnesthetic Monitoring: Standard ASA MonitorsPain Management Plan: Parenteral or OralASA Class: 3Other Medical Problems: NoneChronic Beta Aleyda medication administered within 24 hours: N/AI have interviewed and examined the patient. I have reviewed the medicalrecord and/or the pre-anesthesia evaluation, pertinent labs, and testresults.Significant changes in the patient's condition since the History andPhysical, not otherwise documented in primary service progress notes: NoThis contains updated information obtained within 48 hours ofSurgery/Procedure.SIGNATURE : Ann-Marie Tejada MD PATIENT NAME: Lisa OnofresDATE: September 10, 2018 : 11:06 AM CSN: [id number] Normal [facility] HISTORY PHYSICALon HISTORY PHYSICAL HNO ID: [id number] thor: Margot Rogerservice: General SurgeryAuthor Type: PhysicianType: HANDPFiled: 09/10/2018 10:34 AMNote Text:?HISTORY AND PHYSICAL?Lisa Sahni Iizfgr1955?REFERRING PHYSICIAN: Phuc Martines, DO?CHIEF COMPLAINT: Consult (Consult Colonoscopy)?HPI: The patient is a 62 year old female referred for endoscopy.Lisa notes no history of colon complaints. She does note thatsometimes when she goes to have a bowel movement, she seems to have topush up into her vaginal area to help stool pass from her rectum. Notessome mild discomfort when this occurs. She otherwise denies any change inbowel habits, weight changes, blood in stools, black tarry stools orabdominal pain. She denies any family history of colon issues. Thepatient notes no history of upper GI complaints.?Lisa has undergone prior endoscopy, [address] Rhodes.The patient is being seen by me today at the request of Dr. Conrad mariscal opinion and advice regarding screening colonoscopy. Patient's pastmedical history significant for coronary artery disease, hypertension,obstruction sleep apnea, hypoxemia, COPD. She uses oxygen at night andwith exertion currently. She denies any chest pain, recent worseningshortness of breath, or recent hospitalizations.??PAST MEDICAL HISTORYPAST MEDICAL HISTORYDiagnosis Date- COPD (chronic obstructive pulmonary disease) (HCC) 02/03/2010- Coronary artery disease ?? No NE, CHF. No heart cath.- Diverticulosis of colon (without mention of hemorrhage) ?- Essential hypertension, benign ?- Fibrocystic breast ?- Former smoker ?- Internal hemorrhoids without mention of complication ?- Leiomyoma of uterus, unspecified ?- Obstructive sleep apnea ?? Mild. Not prescribed CPAP, only 2L nasal O2.??PAST SURGICAL HISTORYPAST SURGICAL HISTORYProcedure Laterality Date- BREAST LUMPECTOMY HX Right 1997- COLONOSCOP W/ OR W/O [facility] SPEC ? 08/27/08? repeat due 2017- IMPACT TOOTH REMOV COMP BONY ? ?? WISDOM TEETH- INGUINAL HERNIA REPAIR HX ? 1975? bilateral- PAST SURGICAL HISTORY OF ? ?? hemangioma left cheek???CURRENT MEDICATIONS?Current Outpatient Prescriptions:Lactobacillus acidophilus (PROBIOTIC ORAL) Take by mouth.sqcyeciwfli-bwcsmvmjy-x ilanter (TRELEGY ELLIPTA) 100-62.5-25 mcg dsdvInhale 1 Puff as instructed once daily.NYAMYC powder APPLY 1 APPLICATION TO AFFECTED AREA FOUR TIMES A DAYtriamterene-hydrochlorothi azide 37.5-25 mg per capsule TAKE 1 CAPSULEDAILYCOMPOUNDED PRESCRIPTION Please do nocturnal oximetry on 2 L. DME: [facility].ipratropium-albut alan (DUONEB) 0.5 mg-3 mg(2.5 mg base)/3 mL nebu Inhale 3mL as instructed four times daily. Inhale via nebulizer over 5-15 minutes.COMPOUNDED PRESCRIPTION Please dispense nebulizer and supply kit,including tubing, mouth piece, and hose. Assoc diagnosis: J44.9.Dispense: 1 each, Refills: 99.albuterol HFA (PROAIR HFA) 90 mcg/actuation inhaler Inhale 2 Puffs asinstructed every 4 hours as needed for Wheezing/Shortness of Breath.COMPOUNDED PRESCRIPTION Please perform nocturnal oximetry on 2 lpm O2.DX:Severe COPD, chronic hypoxemic respiratory failureASCORBIC ACID/BIOFLAVONOIDS (SIVAN C ORAL) Take 1 capsule by mouth oncedaily.COMPOUNDED PRESCRIPTION 2L of O2 at night and with exertion.multivitamin tablet Take 1 tablet by mouth once daily.guaiFENesin (MUCINEX) 1,200 mg Ta12 Take 1 tablet by mouth twice daily. 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 Spouse smokes, not in home. Alcohol use: Yes 9.0 - 18.0 oz/week Cans of Beer (12oz): 6 - 12 per week Drug use: No Sexual activity: Yes Partners with: Male control/protection: Other Comment: Postmenopausal?Social History Narrative , 5 grandkids, 2 daughters??FAMILY HISTORY:FAMILY HISTORYFAMILY HISTORYProblem Relation Age of Onset- Cancer Father ?? BLADDER- COPD Mother ?- other (Alcoholic) Mother ?? associated with sepsis.- Hypertension Maternal Grandmother ?- Thyroid Maternal Grandmother ???REVIEW OF SYMPTOMS: The review of systems data was entered by the nurse and reviewed by me?Nursing Notes:Zaynab Chappell LPN 08/27/2018 9:24 AM SignedREVIEW OF SYSTEMS: General: The patient denies fatigue, denies weight loss, deniesweight gain, denies feeling hot, and denies feelings of cold. Eyes: The patient denies glaucoma, denies eye injury/surgery, wearsglasses or contacts. Ear/Nose/Throat: The patient denies allergies, denies hayfever,denies ear infections, and denies bloody noses. Cardiovascular: The patient denies chest pain, denies heart disease,denies high blood pressure,denies cardiac stent, denies prior heartattack, denies irregular heart beat, denies high cholesterol, denies poorcirculation, denies heart failure, other cardiac issues, deniesclaudication, denies cold feet, denies peripheral arterial stent. Respiratory: The patient denies tuberculosis, denies pneumonia,denies frequent cough, denies pulmonary embolism, NOTES shortness ofbreath, and denies coughing up blood. Gastrointestinal: The patient denies difficulty swallowing, deniesacid reflux, denies ulcers, denies vomiting, denies jaundice/hepatitis,denies gallbladder problems, denies black or tarry stools, denieshemorrhoids, denies bleeding from rectum, NOTES diverticulitis, NOTESconstipation, denies diarrhea, denies loss of stool control, and denieshernias. Kidney/Bladder: The patient denies kidney stones, denies urineinfections, and denies bloody urine. Skin: The patient denies a history of skin cancer, deniesbleeding/changing moles, and denies a history of skin rash. Neurologic: The patient denies a history of epilepsy/convulsions,denies headaches, denies head/spinal injuries, and denies stroke/TIA. Psychiatric: The patient denies psychiatric medications, deniesdepression, and denies voices, denies substance abuse. Endocrine: The patient denies thyroid disorders, denies diabetes,and denies hormonal problems. Hematologic: The patient denies a history of bruising, deniesbleeding, and denies anemia, denies blood clots. Infections: The patient denies a history of measles and mumps,denies rheumatic fever, and denies sexually transmitted diseases. Musculoskeletal: The patient denies back pain/injury, denies backproblems, denies sciatica, denies knee/foot trouble, denies arthritis, ordenies gout.??When was patient's last Mammogram screening? 2017? Last Colonoscopy: 2007?Zaynab STARK have confirmed and edited as necessary, the PFSH and ROS obtained byothers.?PHYSICAL EXAMINATION:?General: The patient is 62 year old female, well nourished, well hydratedin no acute distress. The patient is oriented to time, place, and person.?VITALS: Blood pressure 154/88, pulse 72. There is no height or weight onfile to calculate BMI.?HEENT: Normal cephalic, ataumatic, pupils are equally round, sclera areanicteric, mucous membranes are moist, oropharynx is clear. Neck has nomasses, asymmetry or lymphadenopathy.?Respiratory: Clear to auscultation and percussion. Normal respiratoryexcursion and pattern.?Cardiac: Examination is regular rate and rhythm.?Abdominal exam: Soft, nontender, with no palpable masses. Nohepatosplenomegaly. No palpable hernias.?Rectal exam: exam deferred?Extremities: no clubbing, cyanosis or edema. No adenopathy.?Other:?LABORATORY VALUES: As Noted?RADIOLOGIC STUDIES: As Noted?AssessmentIMPRESSION: encounter for screening colonoscopy. Patient also notes Sx?pelvic floor prolapse, recommend evaluation by ANSWERER-patient states hasappt in September. COPD, on oxygen at night and with exertion-will planfor MAC?PLAN: I have reviewed my findings with Dr. Galvan. We will plan forcolonoscopy with MAC. We discussed the risks and benefits of the plannedendoscopy. I have informed the patient that complications can occurincluding failure to complete the endoscopy and perforation. The patienthad the opportunity to ask questions concerning the planned endoscopy. Mann has also explained the procedure to the patient in understandableterms and has given the patient printed material concerning the procedure. The patient freely consents to surgery.?I plan to use golytely bowel preparation for endoscopy?The patient has medical comorbidities for which I plan to perform theprocedure under monitored anesthetic care.?Diagnoses: (Z12.11) Encounter for screening for malignant neoplasm ofcolon (primary encounter diagnosis)(J44.9) Chronic obstructive pulmonary disease, unspecified COPD type (HCC)(R09.02) Hypoxemia?My findings have been communicated to Dr. Martines via shared medicalrecord. This note will be forwarded to Dr. Phuc Martines, DO.Return to Clinic: The patient is instructed to follow-up with me 1 weekpost operatively.? Basia Ely PA-C [facility] NURSING PROGon 09-10-2018 Protein mass conc HNO ID: [id number] Author: Kajal WhitfieldRn) HERRERA Rodney Service: Nursing Author Type: Registered Nurse Type: Nursing Progress Note Filed: 09/10/2018 1:11 PM Note Text: 1245 pt to PACU. TRIANA TCx4. Denies pain. PIV DANDI. VSS no s/sx of distress. [facility] PT EDon 09-10-2018 PT ED HNO ID: [id number] thor: Sola WhitfieldRn) Marcus, RNService: (none)Author Type: Registered NurseType: Patient EducationFiled: 09/10/2018 2:30 PMNote Text:POST OP LEARNING RESPONSEINSTRUCTION PROVIDED TO: Patient and family memberMETHOD OF INSTRUCTION: Individual instructionWritten instruction - handoutsVerbal instructionPATIENT / FAMILY RESPONSE: Verbalizes understanding of: INFECTIONMANAGEMENT-Signs and symptoms of an infection and importance ofcontacting the physicianPAIN MANAGEMENT-Effective strategies to manage pain in addition to painmedicationPHYSICAL RESTRICTIONS-Physical restrictions and recommendations afterdischarge from the hospitalPOST-OPERATIVE INSTRUCTIONS-Correct actions to take to reducepostoperative complicationsFOLLOW-UP PLAN: Patient instructed to call with any further issuesFollow-up with Primary CareSUPPLEMENTAL MATERIAL: NoneREFERRAL (RECOMMENDATION): NoneElectronically Signed By: Sola Velazquez, RN, BSN [facility] PT ED HNO ID: [id number] thor: LAITH De Rnervice: NursingAuthor Type: Registered NurseType: Patient EducationFiled: 09/10/2018 11:05 AMNote Text:PRE OP LEARNING ASSESSMENTPROCEDURE/SURGERY: GI PROCEDURES: ColonoscopyREADINESS TO LEARNCOGNITIVE ABILITY: Alert and orientedMOTIVATION TO LEARN: InterestedFAMILY SUPPORT: High - Very involved in pt carePATIENT LEARNS BEST BY: Verbal InstructionFACTORS AFFECTING LEARNING: NonePHYSICAL LIMITATIONS AFFECTING LEARNING: NoneElectronically Signed By: Roni Bailey RN [facility] NURSING PROGon 09-09-2018 Protein mass conc HNO ID: [id number] thor: Sherrell Osuna) LAITH Waterservice: NursingAuthor Type: Registered NurseType: Nursing Progress NoteFiled: 09/09/2018 10:01 AMNote Text:PACC Nurse Progress NoteHistory AND Physical:PACC Visit Date: 09/05/18Original HANDP Date: 09/05/18ED visit Date: N/AOutside HANDP Scanned Date: N/ALabs Within Last 6 Months:05/02/18 cmp- WNL Hgba1c 5.6Imaging Within Last 12 Months:N/ACardiac Testing:Echo 09/2017 EF 56%Last Menstrual Period:LMP Date: N/APostmenopausal >1yr: Yes,S/P Hysterectomy: NoBMI Percentile (PEDS):N/ABMI 43.3Risk Assessment:N/AAnesthesia Review:N/ANarrative:ROXY- no cpap use, uses O2 at 2L at pm and 3L with exertion, COPDPre-op Considerations:N/AChart Check:Hieu Waters RNNovember 2017 9:58 AM Normal [facility] HISTORY PHYSICALon HISTORY PHYSICAL HNO ID: [id number] thor: Marty Goncalves Pa-Cice: (none)Author Type: Physician AssistantType: HANDPFiled: 09/05/2018 9:59 AMNote Text:HISTORY AND PHYSICAL EXAMINATIONSERVICE DATE: 09/05/2018SERVICE TIME: 9:20 AMPRIMARY CARE PHYSICIAN: TRAVIS Falk FOR VISIT:Lisa Lucero is a 63 year old female who is scheduled for PACC atthe request of Dr. Margot Galvan for consultation. My finalrecommendation will be communicated back to the requesting physician byway of shared medical record or letter.The patient has the following:ACTIVE PROBLEM LISTLeiomyoma of Uterus, UnspecifiedOBESITYEssential HypertensionPAIN FLANKIrritable Bowel SyndromeCopd (Chronic Obstructive Pulmonary Disease) ([facility])HypoxemiaFormer SmokerObstructive Sleep ApneaWell Adult ExamChronic Obstructive Pulmonary Disease (Hcc)Obesity, Class III, BMI >= 40 (morbid obesity) E66.01Oxygen DependentAcute Bronchitis With Chronic Obstructive Pulmonary Disease (Copd) ([facility])Impaired Fasting GlucoseScreening for Colon CancerSubjectiveCHIEF COMPLAINT: Routine colonoscopyHPI: Lias is a 63 year old female, her last colonoscopy was aboutten years ago which was normal. She has c/o intermittent constipation andepisodes of vaginal pressure with the constipation. She denies nausea,vomiting, diarrhea, or abdominal pain.Patient is scheduled for colonoscopy by Dr. Galvan on 09/10/2018.PAST MEDICAL HISTORYDiagnosis Date- COPD (chronic obstructive pulmonary disease) (HCC) 02/03/2010- Coronary artery disease No NE, CHF. No heart cath.- Diverticulosis of colon (without mention of hemorrhage)- Essential hypertension, benign- Fibrocystic breast- Former smoker- Internal hemorrhoids without mention of complication- Leiomyoma of uterus, unspecified- Obstructive sleep apnea Mild. Not prescribed CPAP, only 2L nasal O2.PAST SURGICAL HISTORYProcedure Laterality Date- BREAST LUMPECTOMY HX Right 1997- COLONOSCOP W/ OR W/O [facility] SPEC 08/27/08 repeat due 2017- IMPACT TOOTH REMOV COMP BONY WISDOM TEETH- INGUINAL HERNIA REPAIR HX 1975 bilateral- PAST SURGICAL HISTORY OF hemangioma left cheekFAMILY HISTORYProblem Relation Age of Onset- Cancer Father BLADDER- COPD Mother- other (Alcoholic) Mother associated with sepsis.- Hypertension Maternal Grandmother- Thyroid Maternal GrandmotherSOCIAL HISTORY:Social History Marital status: Spouse name: Vinnie Years of education: Number of children: 2Occupational 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 Spouse smokes, not in home. Alcohol use: Yes 9.0 - 18.0 oz/week Cans of Beer (12oz): 6 - 12 per week Drug use: No Sexual activity: Yes Partners with: Male control/protection: Other Comment: PostmenopausalSocial History Narrative , 5 grandkids, 2 daughtersPrior to Admission medications as of 09/05/18 0932Medication Sig Last Dose TakingLactobacillus acidophilus (PROBIOTIC ORAL) Take by mouth. Taking Wodwsduotrnbzc-xyetdlmxw-bbbn nter (TRELEGY ELLIPTA) 100-62.5-25 mcg dsdvInhale 1 Puff as instructed once daily. Taking YesNYAMYC powder APPLY 1 APPLICATION TO AFFECTED AREA FOUR TIMES A DAYPatient taking differently: prn Taking Differently Yestriamterene-hydrochlorothi azide 37.5-25 mg per capsule TAKE 1 CAPSULEDAILY Taking Yesipratropium-albuterol (DUONEB) 0.5 mg-3 mg(2.5 mg base)/3 mL nebu Inhale 3mL as instructed four times daily. Inhale via nebulizer over 5-15 minutes.Patient taking differently: Inhale 3 mL as instructed as needed. Inhalevia nebulizer over 5-15 minutes. Taking Differently YesCOMPOUNDED PRESCRIPTION Please dispense nebulizer and supply kit,including tubing, mouth piece, and hose. Assoc diagnosis: J44.9.Dispense: 1 each, Refills: 99. Taking Yesalbuterol HFA (PROAIR HFA) 90 mcg/actuation inhaler Inhale 2 Puffs asinstructed every 4 hours as needed for Wheezing/Shortness of Breath.Taking YesASCORBIC ACID/BIOFLAVONOIDS (SIVAN C ORAL) Take 1 capsule by mouth oncedaily. Taking YesCOMPOUNDED PRESCRIPTION 2L of O2 at night and with exertion. Taking Yesmultivitamin tablet Take 1 tablet by mouth once daily. Taking YesCOMPOUNDED PRESCRIPTION Please do nocturnal oximetry on 2 L. DME: [facility].Patient not taking: Reported on 09/05/2018 Not TakingCOMPOUNDED PRESCRIPTION Please perform nocturnal oximetry on 2 lpm O2.DX: Severe COPD, chronic hypoxemic respiratory failurePatient not taking: Reported on 09/05/2018 Not TakingNo medication comments found.ALLERGIESNo Known AllergiesREVIEW OF SYSTEMS:PAIN ASSESSMENT:General: No weight loss, malaise or fevers.Neuro: No history of TIA's, stroke, [employer] tumor, impaired sensorium,hemiplegia, paraplegia or quadraplegia. No neurological symptoms orproblems.Respiratory: Positive for COPD- on daily Trelegy Ellipta, requiresalbuterol inhaler about 4 times a month. takes PRN Duoneb with illness andalbuterol. Uses 2L O2 at night and 3L O2 with exertion. Followed bypulmonologist Dr. Childs.Cardiovascular: Positive for: Hypertension- Rx Negative for chest pain,orthopnea, PND, dizziness, lightheadedness or syncope. Negative for heartmurmur. Negative for palpitations or arrhythmia. Negative for h/oDVT/PE. Negative for LE edemaGI: See HPIGU: No history of UTI in past 6 weeks. No history of renal failure. Notcurrently on or requiring dialysis. Negative for dysuria, hematuria,urgency, or frequency.ANSWERER: Negative for abnormal vaginal bleeding, abnormal vaginal discharge. : N/A, No LMP recorded. Patient is postmenopausal.Endocrine: No history of diabetes. Has not taken steroids within the past30 days. No history of endocrinological symptoms or problems.Hematology: No history of bleeding or clotting disorder. Pt is not takinganti-coagulation or platelet medications. No history of hematologicalsymptoms or problems.Oncology: No history of CA metastasis, chemo within 30 days, orradiotherapy within 90 days. Has not lost 10% of body wt in 6 months. Nohistory of oncological symptoms or problems.Psych: No history of psychiatric symptoms or problems.Musculoskeletal: Negative for joint pain or swelling, back pain or musclepain. Patient does not require pain management. Patient denies a historyof difficulty controlling post-op pain.Skin: Negative for lesions, rash and itching.ObjectivePHYSICAL EXAM:VITALS:BP 134/73 Pulse 95 Temp 98.2 Ht 5' 4.5 (1.64m) Wt 256 lb 1.6 oz(116.2kg) SpO2 91% BMI 43.30 kg/(m2).General: Alert and oriented, No acute distressSkin: Normal color, no rash, no lesions.HEENT: pupils equal, round and reactive.Cardiovascular: Normal S1 AND S2, no rubs, murmurs or gallops. No JVD. Pulseregular.Lungs: Normal breath sounds, no wheezes or crackles.Abdomen: Soft, non-tender, no rigidity., obeseExtremities: No deformity, no edema or tenderness, no joint swelling orclubbing.Neurological: Normal cognition and motor skills.Pulses: Carotid and radial pulses normal +2.Diagnostic tests reviewed for today's visit: Lab Value Units Date High Low HB No results within date range. HCT No results within date range. WBC No results within date range. PLT No results within date range. NA 142 mmol/L 05/02/2018 144 136 K 4.0 mmol/L 05/02/2018 5.1 3.7 GLUC 97 mg/dL 05/02/2018 99 74 BUN 12 mg/dL 05/02/2018 21 7 CREAT 0.74 mg/dL 05/02/2018 0.96 0.58 PTSEC No results within date range. INR No results within date range. APTT No results within date range. ALT 27 U/L 05/02/2018 38 7 AST 29 U/L 05/02/2018 35 13 TBILI 0.6 mg/dL 05/02/2018 1.3 0.2 TSH No results within date range. Lab Value Units Date High Low HCGQT No results within date range. UHCG No results within date range. HCG, BODY* No results within date range. Lab Value Units Date High Low ABORHD No results within date range. ABSCREEN No results within date range.Hemoglobin A1C (%)Date Value05/02/2018 5.6011/05/2017 6.0 Most recent labsMost recent EKGMost recent [facility]All [facility] has the following medical conditionsHTN- RxCOPD- on daily Trelegy Ellipta, requires albuterol about 4 times permonth. On 2L O2 at night and 3L O2 with exertion and walking. Followed bypulmonologist Dr. Childs, per last office visit note patient's SpO2 goalin 90%. Today SpO2= 91%.ROXY, no CPAPObese. BMI= 43Screening for colon cancerMETS:Walk indoors, such as around the house (1.75 METs)Do light work around the house, such as dusting or washing dishes (2.70METs)Take care of self; that is eating, dressing, bathing, using the toilet(2.75 METs)Patient denies any chest pain or undue shortness of breath with the abovephysical activity.ASA Class: 3ANESTHESIA FINDINGS:Intubation History: No history of difficult intubationSignificant Anesthesia Considerations: NoneAirway Exam: General: Morbid obesity Mallampati Score is CLASS II ULBT: Class I - Lower incisors can bite the upper lip above thevermillion line Neck: Normal appearance and function, Distance from hyoid to mentumduring neck extension is at least 3 finger breaths Mouth: Normal tongue size and Mouth opening greater than 2 finger breaths Dentition: IntactAirway History: No abnormal airway historySTOP BANG Score: ROXY does not use CPAP/BiPAPPLANThis patient is optimally prepared for COLONOSCOPY surgery.CONSULTS:Patient does not require consults for optimization at this time.The Following Tests/Procedures Have Been Initiated:Labs not indicated per PACC protocolPlanned Anesthetic: MACInstructions Given to Patient:Patient given verbal and written preop instructions and voicescomprehension and compliance.SIGNATURE: Jeanine Mckeon PA-C PATIENT NAME: Lisa OnofresDATE: September 05, 2018 : 9:32 AM PAGER/CONTACT #: [facility] 08-27-2018 [facility] Patient:Linwood Lucero KMRN: Height:5' 4.5(1.638 m)Weight:256 lb 1.6 oz (116.166 kg)Outpatient Medications as of 09/10/18:Lactobacillus acidophilus (PROBIOTIC ORAL)kvqbrznfpbz-uddowvvgi-qu lanter (TRELEGY ELLIPTA) 100-62.5-25 mcg dsdvNYAMYC powdertriamterene-hydrochloro thiazide 37.5-25 mg per capsuleCOMPOUNDED PRESCRIPTIONipratropium-albut alan (DUONEB) 0.5 mg-3 mg(2.5 mg base)/3 mL nebuCOMPOUNDED PRESCRIPTIONalbuterol HFA (PROAIR HFA) 90 mcg/actuation inhalerCOMPOUNDED PRESCRIPTIONASCORBIC ACID/BIOFLAVONOIDS (SIVAN C ORAL)COMPOUNDED PRESCRIPTIONmultivitamin tabletAdmission/Clinic Administered Medications as of 09/10/18:NaCl 0.9% iv infusionProblem List:Leiomyoma of uterus, unspecified [D25.9]OBESITY [E66.9]Essential hypertension [I10]PAIN FLANK [R10.9]Irritable bowel syndrome [K58.9]COPD (chronic obstructive pulmonary disease) (HCC) [J44.9]Hypoxemia [R09.02]Former smoker [Z87.891]Obstructive sleep apnea [G47.33]Well adult exam [Z00.00]Chronic obstructive pulmonary disease (HCC) [J44.9]Obesity, Class III, BMI >= 40 (morbid obesity) E66.01 [E66.01]Oxygen dependent [Z99.81]Acute bronchitis with chronic obstructive pulmonary disease (COPD) (HCC)[J44.0, J20.9]Impaired fasting glucose [R73.01]Screening for colon cancer [Z12.11]Allergies:No Known AllergiesDate Verified:09/10/18Lab ValuesNo results within the last 30 days for the following basenames: K,HCTProgress Notes ([facility]):Deo Dickerson RN 08/30/2018 9:50 AM Mlamzz89 year old female here for INACTIVATED INFLUENZA VACCINE.[id number] SeasonPatient is identified by name and date of : Yes [] CONTRAINDICATIONS color enhancedsectionAge less than 6 months? NoAllergy to eggs, chicken, chicken feathers, or chicken dander? NoAllergy to thimerosal (a preservative) or formaldehyde, gelatin? NoHistory of severe reaction to any vaccine component or a previous dose ofinfluenza vaccination? NoHistory of Guillain-Wendell Syndrome within 6 weeks after a previous influenzavaccine? NoPatient is not moderately or severely ill? NoCurrent temperature greater or equal to 100.4F? NoHistory of Bone Marrow Transplant prior 6 months or solid organ transplant inthe past 3 months ? NoHistory of fainting after a prior injection or medical procedure? No-? If patient has fainted in the past, the CDC recommends sitting or lying downfor 15 minutes after the vaccination. [] VERIFICATION colorenhanced sectionWas the answer Yes for any of the above contraindications? Nocontraindications present. Acceptable to proceed with vaccine.Patient/guardian agrees the above answers are true to the best of theirknowledge? YesFlu vaccine information sheet given? YesSee immunization activity in [facility] for details of immunizations adminsteredtoday.Patient age: [age] year old For The 2546-1710 Flu Season6-35 months old: Fluzone 0.25 ml - IM (Preservative Free)3 years of age: Fluzone 0.5 ml - IM (Preservative Free)3 years and older: Fluzone 0.5 ml- IM-(with Preservatives)65+ years old:2-49 years old Fluzone High-Dose 0.5 ml - IM (Preservative Free)FLUMIST- intranasalREMEMBER: If patient is less than 9 years of age and this is the first vaccineof Influenza to be received in any flu season, they should receive a second dosein one months time.Previous VersionProgress Notes ([facility]):Teodoro Bower 08/27/2018 9:33 AM [id number] Colon JOSE unless told otherwise. Dr Galvan, can you please reviewthis patients information . Thank you Teodoro Bower 08/27/2018 2:59 PM Signedleft message for patient to call back so we can schedule her procedure in ahospital setting Teodoro Bower 08/27/2018 3:54 PM [id number] [place] Bower 08/28/2018 1:22 PM [id number] [place] Jenkins [facility] Vital Signs Date Time Vital Sign Value Performing Clinician Facility 04-23-2025 14:59-0400 Body mass index (BMI) [Ratio] 43.98 kg/m2 Terrie Robledo APRN.CNP Work Phone: [facility] 04-23-2025 14:59-0400 Body weight 116.21 kg Terrie Robledo APRN.CULTURE MANAGER Work Phone: [facility] 04-23-2025 14:59-0400 Diastolic blood pressure 62 mm[Hg] Terrie Robledo APRN.CULTURE MANAGER Work Phone: [facility] 04-23-2025 14:59-0400 Heart rate 129 /min Terrie Robledo APRN.CULTURE MANAGER Work Phone: [facility] 04-23-2025 14:59-0400 Respiratory rate 20 /min Terrie Robledo APRN.CULTURE MANAGER Work Phone: [facility] 04-23-2025 14:59-0400 SaO2% (BldA) [Mass fraction] 92 % Terrie Robledo APRN.CULTURE MANAGER Work Phone: [facility] 04-23-2025 14:59-0400 Systolic blood pressure 122 mm[Hg] Terrie Robledo APRN.CULTURE MANAGER Work Phone: [facility] 04-20-2025 09:48-0400 Body mass index (BMI) [Ratio] 44.27 kg/m2 Damon Eugene APRN.CULTURE MANAGER Work Phone: [facility] 04-20-2025 09:48-0400 Body temperature 98.4 [degF] Damon Eugene APRN.CULTURE MANAGER Work Phone: [facility] 04-20-2025 09:48-0400 Body weight 117 kg Damon Eugene APRN.CULTURE MANAGER Work Phone: [facility] 04-20-2025 09:48-0400 Diastolic blood pressure 80 mm[Hg] Damon Eugene APRN.CULTURE MANAGER Work Phone: [facility] 04-20-2025 09:48-0400 Heart rate 94 /min Damon Eugene APRN.CULTURE MANAGER Work Phone: [facility] 04-20-2025 09:48-0400 Respiratory rate 18 /min Damon Eugene APRN.CULTURE MANAGER Work Phone: [facility] 04-20-2025 09:48-0400 SaO2% (BldA) [Mass fraction] 91 % Damon Eugene APRN.CULTURE MANAGER Work Phone: [facility] 04-20-2025 09:48-0400 Systolic blood pressure 132 mm[Hg] Damon Eugene APRN.CULTURE MANAGER Work Phone: [facility] 03-31-2025 12:52-0400 Body mass index (BMI) [Ratio] 45.08 kg/m2 Janette Damon APRN.CULTURE MANAGER Work Phone: [facility] 03-31-2025 12:52-0400 Body weight 119.11 kg Janette Podlogar AVIATION TACTICAL READINESS OFFICER.CULTURE MANAGER Work Phone: [facility] 03-31-2025 12:52-0400 Diastolic blood pressure 82 mm[Hg] Janette Podlogar AVIATION TACTICAL READINESS OFFICER.CULTURE MANAGER Work Phone: [facility] 03-31-2025 12:52-0400 Heart rate 91 /min Janette Podlogar AVIATION TACTICAL READINESS OFFICER.CULTURE MANAGER Work Phone: [facility] 03-31-2025 12:52-0400 Respiratory rate 18 /min Janette Podlogar AVIATION TACTICAL READINESS OFFICER.CULTURE MANAGER Work Phone: [facility] 03-31-2025 12:52-0400 SaO2% (BldA) [Mass fraction] 92 % Janette Podlogar AVIATION TACTICAL READINESS OFFICER.CULTURE MANAGER Work Phone: [facility] Comment on above: 3LPM 03-31-2025 12:52-0400 Systolic blood pressure 124 mm[Hg] Janette Podlogar AVIATION TACTICAL READINESS OFFICER.CULTURE MANAGER Work Phone: [facility] 03-30-2025 11:28-0400 Body height 162.[address] Phuc Martines DO Work Phone: [facility] 03-30-2025 11:28-0400 Body mass index (BMI) [Ratio] 45.1 kg/m2 Dr. Phuc Martnies DO Work Phone: [facility] 03-30-2025 11:28-0400 Body weight 119.[address] Phuc Martines DO Work Phone: [facility] 03-30-2025 11:28-0400 Diastolic blood pressure 80 mm[Hg] Dr. Phuc Martines DO Work Phone: [facility] 03-30-2025 11:28-0400 Heart rate 69 /min Dr. Phuc Martines DO Work Phone: [facility] 03-30-2025 11:28-0400 Inhaled oxygen flow rate 2 L/min Dr. Phuc Martines DO Work Phone: [facility] 03-30-2025 11:28-0400 Respiratory rate 18 /min Dr. Phuc Martines DO Work Phone: [facility] 03-30-2025 11:28-0400 SaO2% (BldA) [Mass fraction] 86 % Dr. Phuc Martines DO Work Phone: [facility] 03-30-2025 11:28-0400 Systolic blood pressure 122 mm[Hg] Dr. Phuc Martines DO Work Phone: [facility] 03-01-2025 12:31-0400 Body mass index (BMI) [Ratio] 45.01 kg/m2 Janette Podlogar AVIATION TACTICAL READINESS OFFICER.CULTURE MANAGER Work Phone: [facility] 03-01-2025 12:31-0400 Body weight 118.93 kg Janette Podlogar AVIATION TACTICAL READINESS OFFICER.CULTURE MANAGER Work Phone: [facility] 03-01-2025 12:31-0400 Diastolic blood pressure 70 mm[Hg] Janette Podlogar AVIATION TACTICAL READINESS OFFICER.CULTURE MANAGER Work Phone: [facility] 03-01-2025 12:31-0400 Heart rate 76 /min Janette Podlogar AVIATION TACTICAL READINESS OFFICER.CULTURE MANAGER Work Phone: [facility] 03-01-2025 12:31-0400 Respiratory rate 18 /min Janette Podlogar AVIATION TACTICAL READINESS OFFICER.CULTURE MANAGER Work Phone: [facility] 03-01-2025 12:31-0400 SaO2% (BldA) [Mass fraction] 90 % Janette Podlogar AVIATION TACTICAL READINESS OFFICER.CULTURE MANAGER Work Phone: [facility] Comment on above: 3LPM 03-01-2025 12:31-0400 Systolic blood pressure 116 mm[Hg] Janette Podlogar AVIATION TACTICAL READINESS OFFICER.CULTURE MANAGER Work Phone: [facility] 02-23-2025 13:26-0400 Body temperature 98.4 [degF] Dr. Phuc Martines DO Work Phone: [facility] 02-23-2025 13:26-0400 Diastolic blood pressure 83 mm[Hg] Dr. Phuc Martines DO Work Phone: [facility] 02-23-2025 13:26-0400 Heart rate 104 /min Dr. Phuc Martines DO Work Phone: [facility] 02-23-2025 13:26-0400 Inhaled oxygen flow rate 3.5 L/min Dr. Phuc Martines DO Work Phone: [facility] 02-23-2025 13:26-0400 Respiratory rate 18 /min Dr. Phuc Martines DO Work Phone: 0(111)[phone] [place] [address] 02-23-2025 13:26-0400 SaO2% (BldA) [Mass fraction] 97 % Dr. Phuc Martines DO Work Phone: 0(487)[phone] [place] [address] 02-23-2025 13:26-0400 Systolic blood pressure 110 mm[Hg] Dr. Phuc Martines DO Work Phone: 9(713)[phone] [place] [address] 02-23-2025 03:57-0400 Body mass index (BMI) [Ratio] 44.6 kg/m2 Dr. Phuc Martines DO Work Phone: 7(471)[phone] [place] [address] 02-23-2025 03:57-0400 Body weight 117.[address] Phuc Martines DO Work Phone: 8(256)[phone] [place] [address] 02-22-2025 10:02-0400 Body height 162.[address] Phuc Martines DO Work Phone: [facility] 01-25-2025 11:08-0400 Body height 162.6 cm Maricruz Camp AVIATION TACTICAL READINESS OFFICER.CULTURE MANAGER Work Phone: [facility] 01-25-2025 11:08-0400 Body mass index (BMI) [Ratio] 45.56 kg/m2 Maricruz Camp AVIATION TACTICAL READINESS OFFICER.CULTURE MANAGER Work Phone: [facility] 01-25-2025 11:08-0400 Body weight 120.39 kg Maricruz Camp AVIATION TACTICAL READINESS OFFICER.CULTURE MANAGER Work Phone: [facility] 01-25-2025 11:08-0400 Diastolic blood pressure 76 mm[Hg] Maricruz Camp AVIATION TACTICAL READINESS OFFICER.CULTURE MANAGER Work Phone: [facility] 01-25-2025 11:08-0400 Heart rate 88 /min Maricruz Camp AVIATION TACTICAL READINESS OFFICER.CULTURE MANAGER Work Phone: [facility] 01-25-2025 11:08-0400 SaO2% (BldA) [Mass fraction] 92 % Maricruz Camp AVIATION TACTICAL READINESS OFFICER.CULTURE MANAGER Work Phone: [facility] 01-25-2025 11:08-0400 Systolic blood pressure 131 mm[Hg] Maricruz Camp AVIATION TACTICAL READINESS OFFICER.CULTURE MANAGER Work Phone: [facility] 01-20-2025 14:36-0400 Body mass index (BMI) [Ratio] 45.32 kg/m2 Phuc Martines DO Work Phone: [facility] 01-20-2025 14:36-0400 Body temperature 97 [degF] Phuc Martines DO Work Phone: [facility] 01-20-2025 14:36-0400 Body weight 119.75 kg Phuc Martines DO Work Phone: [facility] 01-20-2025 14:36-0400 Diastolic blood pressure 70 mm[Hg] Phuc Martines DO Work Phone: [facility] 01-20-2025 14:36-0400 Heart rate 72 /min Phuc Martines DO Work Phone: [facility] 01-20-2025 14:36-0400 Respiratory rate 20 /min Phuc Martines DO Work Phone: [facility] 01-20-2025 14:36-0400 Systolic blood pressure 138 mm[Hg] Phuc Martines DO Work Phone: [facility] 12-25-2024 11:22-0500 Body mass index (BMI) [Ratio] 45.08 kg/m2 Lisa Goodman AVIATION TACTICAL READINESS OFFICER.CULTURE MANAGER Work Phone: [facility] 12-25-2024 11:22-0500 Body weight 119.11 kg Lisa Click AVIATION TACTICAL READINESS OFFICER.CULTURE MANAGER Work Phone: [facility] 12-25-2024 11:22-0500 Diastolic blood pressure 64 mm[Hg] Lisa Click AVIATION TACTICAL READINESS OFFICER.CULTURE MANAGER Work Phone: [facility] 12-25-2024 11:22-0500 Heart rate 92 /min Lisa Click AVIATION TACTICAL READINESS OFFICER.CULTURE MANAGER Work Phone: [facility] 12-25-2024 11:22-0500 Respiratory rate 20 /min Lisa Click AVIATION TACTICAL READINESS OFFICER.CULTURE MANAGER Work Phone: [facility] 12-25-2024 11:22-0500 SaO2% (BldA) [Mass fraction] 91 % Lisa Click AVIATION TACTICAL READINESS OFFICER.CULTURE MANAGER Work Phone: [facility] Comment on above: 2 L [place] 12-25-2024 11:22-0500 Systolic blood pressure 134 mm[Hg] Lisa Click AVIATION TACTICAL READINESS OFFICER.CULTURE MANAGER Work Phone: [facility] 10-19-2024 10:15-0500 Body height 162.6 cm Maricruz Millbrook AVIATION TACTICAL READINESS OFFICER.CULTURE MANAGER Work Phone: [facility] 10-19-2024 10:15-0500 Body mass index (BMI) [Ratio] 44.56 kg/m2 Maricruz Millbrook AVIATION TACTICAL READINESS OFFICER.CULTURE MANAGER Work Phone: [facility] 10-19-2024 10:15-0500 Body weight 117.75 kg Maricruz Millbrook AVIATION TACTICAL READINESS OFFICER.CULTURE MANAGER Work Phone: [facility] 10-19-2024 10:15-0500 Diastolic blood pressure 70 mm[Hg] Maricruz Millbrook AVIATION TACTICAL READINESS OFFICER.CULTURE MANAGER Work Phone: [facility] 10-19-2024 10:15-0500 Heart rate 101 /min Maricruz Millbrook AVIATION TACTICAL READINESS OFFICER.CULTURE MANAGER Work Phone: [facility] 10-19-2024 10:15-0500 SaO2% (BldA) [Mass fraction] 90 % Maricruz Camp APRN.CULTURE MANAGER Work Phone: [facility] Comment on above: 3 L 10-19-2024 10:15-0500 Systolic blood pressure 130 mm[Hg] Maricruz Camp APRN.CULTURE MANAGER Work Phone: [facility] 06-26-2024 11:29-0400 Body mass index (BMI) [Ratio] 43.6 kg/m2 Diana Gonzalez MD Work Phone: [facility] 06-26-2024 11:29-0400 Body weight 115.21 kg Diana Gonzalez MD Work Phone: [facility] 06-26-2024 11:29-0400 Diastolic blood pressure 78 mm[Hg] Diana Gonzalez MD Work Phone: [facility] 06-26-2024 11:29-0400 Heart rate 80 /min Diana Gonzalez MD Work Phone: [facility] 06-26-2024 11:29-0400 Respiratory rate 15 /min Diana Gonzalez MD Work Phone: [facility] 06-26-2024 11:29-0400 SaO2% (BldA) [Mass fraction] 91 % Diana Gonzalez MD Work Phone: [facility] 06-26-2024 11:29-0400 Systolic blood pressure 136 mm[Hg] Diana Gonzalez MD Work Phone: [facility] 04-26-2024 10:59-0400 Body mass index (BMI) [Ratio] 44.65 kg/m2 Damon Eugene APRN.CULTURE MANAGER Work Phone: [facility] 04-26-2024 10:59-0400 Body temperature 98.6 [degF] Damon Eugene APRN.CULTURE MANAGER Work Phone: [facility] 04-26-2024 10:59-0400 Body weight 118 kg Damon Eugene APRN.CULTURE MANAGER Work Phone: [facility] 04-26-2024 10:59-0400 Diastolic blood pressure 68 mm[Hg] Damon Jas POLLACK.CULTURE MANAGER Work Phone: [facility] 04-26-2024 10:59-0400 Heart rate 68 /min Damonsidra Eugene APRN.CULTURE MANAGER Work Phone: [facility] 04-26-2024 10:59-0400 Respiratory rate 20 /min Damon Eugene APRN.CULTURE MANAGER Work Phone: [facility] 04-26-2024 10:59-0400 SaO2% (BldA) [Mass fraction] 98 % Damon Eugene APRN.CULTURE MANAGER Work Phone: [facility] 04-26-2024 10:59-0400 Systolic blood pressure 144 mm[Hg] Damon Jas POLLACK.CULTURE MANAGER Work Phone: [facility] 03-13-2024 12:59-0400 Body mass index (BMI) [Ratio] 44.29 kg/m2 Phuc Martines DO Work Phone: [facility] 03-13-2024 12:59-0400 Body temperature 97.59 [degF] Phuc Martines DO Work Phone: [facility] 03-13-2024 12:59-0400 Body weight 117.03 kg Phuc Martines DO Work Phone: [facility] 03-13-2024 12:59-0400 Diastolic blood pressure 70 mm[Hg] Phuc Martines DO Work Phone: [facility] 03-13-2024 12:59-0400 Heart rate 102 /min Phuc Martines DO Work Phone: [facility] 03-13-2024 12:59-0400 Respiratory rate 28 /min Phuc Martines DO Work Phone: [facility] 03-13-2024 12:59-0400 SaO2% (BldA) [Mass fraction] 91 % Phuc Martines DO Work Phone: [facility] 03-13-2024 12:59-0400 Systolic blood pressure 158 mm[Hg] Phuc Martines DO Work Phone: [facility] 01-29-2024 13:30-0400 Body temperature 97.9 [degF] Srikanth Sean AVIATION TACTICAL READINESS OFFICER.CULTURE MANAGER Work Phone: [facility] 01-29-2024 13:30-0400 Body weight 118.4 kg Srikanth Estrada AVIATION TACTICAL READINESS OFFICER.CULTURE MANAGER Work Phone: [facility] 01-29-2024 13:30-0400 Diastolic blood pressure 68 mm[Hg] Srikanth Sean AVIATION TACTICAL READINESS OFFICER.CULTURE MANAGER Work Phone: [facility] 01-29-2024 13:30-0400 Heart rate 94 /min Srikanth Estrada AVIATION TACTICAL READINESS OFFICER.CULTURE MANAGER Work Phone: [facility] 01-29-2024 13:30-0400 Respiratory rate 18 /min Srikanth Estrada AVIATION TACTICAL READINESS OFFICER.CULTURE MANAGER Work Phone: [facility] 01-29-2024 13:30-0400 SaO2% (BldA) [Mass fraction] 93 % Srikanth Estrada AVIATION TACTICAL READINESS OFFICER.CULTURE MANAGER Work Phone: [facility] 01-29-2024 13:30-0400 Systolic blood pressure 112 mm[Hg] Srikanth Estrada AVIATION TACTICAL READINESS OFFICER.CULTURE MANAGER Work Phone: [facility] 08-14-2023 10:19-0400 Body temperature 97 [degF] Phuc Martines DO Work Phone: [facility] 08-14-2023 10:19-0400 Body weight 120.2 kg Phuc Martines DO Work Phone: [facility] 08-14-2023 10:19-0400 Diastolic blood pressure 70 mm[Hg] Phuc Martines DO Work Phone: [facility] 08-14-2023 10:19-0400 Heart rate 88 /min Phuc Martines DO Work Phone: [facility] 08-14-2023 10:19-0400 Respiratory rate 20 /min Phuc Martines DO Work Phone: [facility] 08-14-2023 10:19-0400 Systolic blood pressure 120 mm[Hg] Phuc Martines DO Work Phone: [facility] 06-13-2023 12:58-0400 Body weight 120.66 kg Pulm Wstr Work Phone: [facility] 06-13-2023 12:58-0400 Heart rate 102 /min Pulm Wstr Work Phone: [facility] 06-13-2023 12:58-0400 Respiratory rate 16 /min Pulm Wstr Work Phone: [facility] 06-13-2023 12:58-0400 SaO2% (BldA) [Mass fraction] 94 % Pulm Wstr Work Phone: [facility] 06-13-2023 12:53-0400 Diastolic blood pressure 86 mm[Hg] Hodan Mara PA-C Work Phone: [facility] 06-13-2023 12:53-0400 SaO2% (BldA) [Mass fraction] 80 % Hodan Mara PA-C Work Phone: [facility] 06-13-2023 12:53-0400 Systolic blood pressure 144 mm[Hg] Hodan Mara PA-C Work Phone: [facility] 09-28-2022 12:12-0500 Body temperature 99 [degF] Pratibha Fernando AVIATION TACTICAL READINESS OFFICER.CULTURE MANAGER Work Phone: [facility] 09-28-2022 12:12-0500 Body weight 116.3 kg Pratibha Fernando AVIATION TACTICAL READINESS OFFICER.CULTURE MANAGER Work Phone: [facility] 09-28-2022 12:12-0500 Diastolic blood pressure 94 mm[Hg] Pratibha Fernando AVIATION TACTICAL READINESS OFFICER.CULTURE MANAGER Work Phone: [facility] 09-28-2022 12:12-0500 Heart rate 99 /min Pratibha Fernando AVIATION TACTICAL READINESS OFFICER.CULTURE MANAGER Work Phone: [facility] 09-28-2022 12:12-0500 Respiratory rate 20 /min Pratibha King AVIATION TACTICAL READINESS OFFICER.CULTURE MANAGER Work Phone: [facility] 09-28-2022 12:12-0500 SaO2% (BldA) [Mass fraction] 94 % Pratibha King AVIATION TACTICAL READINESS OFFICER.CULTURE MANAGER Work Phone: [facility] 09-28-2022 12:12-0500 Systolic blood pressure 142 mm[Hg] Pratibha King AVIATION TACTICAL READINESS OFFICER.CULTURE MANAGER Work Phone: [facility] 08-01-2022 10:17-0400 Body temperature 98.4 [degF] Phuc Martines DO Work Phone: [facility] 08-01-2022 10:17-0400 Body weight 117.48 kg Phuc Martines DO Work Phone: [facility] 08-01-2022 10:17-0400 Diastolic blood pressure 60 mm[Hg] Phuc Martines DO Work Phone: [facility] 08-01-2022 10:17-0400 Heart rate 88 /min Phuc Martines DO Work Phone: [facility] 08-01-2022 10:17-0400 Respiratory rate 24 /min Phuc Martines DO Work Phone: [facility] 08-01-2022 10:17-0400 SaO2% (BldA) [Mass fraction] 88 % Phuc Martines DO Work Phone: [facility] 08-01-2022 10:17-0400 Systolic blood pressure 136 mm[Hg] Phuc Martines DO Work Phone: [facility] 03-16-2022 09:33-0400 Body height 164.5 cm Respiratory Wstr Work Phone: [facility] 03-16-2022 09:33-0400 Body weight 114.76 kg Respiratory Wstr Work Phone: [facility] 03-16-2022 09:33-0400 Heart rate 93 /min Respiratory Wstr Work Phone: [facility] 03-16-2022 09:33-0400 Respiratory rate 12 /min Respiratory Wstr Work Phone: [facility] 03-16-2022 09:33-0400 SaO2% (BldA) [Mass fraction] 94 % Respiratory Wstr Work Phone: [facility] 03-16-2022 09:31-0400 Body weight 114.76 kg Hodan Mara PA-C Work Phone: [facility] 03-16-2022 09:31-0400 Diastolic blood pressure 86 mm[Hg] Hodan Mara PA-C Work Phone: [facility] 03-16-2022 09:31-0400 Heart rate 93 /min Hodan Mara PA-C Work Phone: [facility] 03-16-2022 09:31-0400 Respiratory rate 12 /min Hodan Mara PA-C Work Phone: [facility] 03-16-2022 09:31-0400 SaO2% (BldA) [Mass fraction] 96 % Hodan Mara PA-C Work Phone: [facility] 03-16-2022 09:31-0400 Systolic blood pressure 138 mm[Hg] Hodan Mara PA-C Work Phone: [facility] 02-09-2022 12:49-0400 Body weight 114.31 kg Hodan Mara PA-C Work Phone: [facility] 02-09-2022 12:49-0400 Diastolic blood pressure 88 mm[Hg] Hodan Mara PA-C Work Phone: [facility] 02-09-2022 12:49-0400 Heart rate 102 /min Hodan Mara PA-C Work Phone: [facility] 02-09-2022 12:49-0400 Respiratory rate 20 /min Hodan Mara PA-C Work Phone: [facility] 02-09-2022 12:49-0400 SaO2% (BldA) [Mass fraction] 86 % Hodan Christine PA-C Work Phone: [facility] 02-09-2022 12:49-0400 Systolic blood pressure 140 mm[Hg] Hodan Christine PA-C Work Phone: [facility] 01-30-2022 08:59-0400 Body temperature 97.59 [degF] Phuc Martines DO Work Phone: [facility] 01-30-2022 08:59-0400 Body weight 115.21 kg Phuc Martines DO Work Phone: [facility] 01-30-2022 08:59-0400 Diastolic blood pressure 74 mm[Hg] Phuc Martines DO Work Phone: [facility] 01-30-2022 08:59-0400 Heart rate 104 /min Phuc Martines DO Work Phone: [facility] 01-30-2022 08:59-0400 Respiratory rate 20 /min Phuc Martines DO Work Phone: [facility] 01-30-2022 08:59-0400 SaO2% (BldA) [Mass fraction] 88 % Phuc Martines DO Work Phone: [facility] 01-30-2022 08:59-0400 Systolic blood pressure 150 mm[Hg] Phuc Martines DO Work Phone: [facility] Encounters Encounter Date Encounter Type Care Provider Facility Start: 04-23-2025 End: 04-23-2025 Office outpatient visit 40 minutes Terrie Robledo APRN.ELVIA Work Phone: [facility] Comment on above: Acute confusion (Blanca patrizia Dx); Atrial flutter, unspecified type (HCC); Tachycardia; Stage 3 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); Congestive heart failure, unspecified HF chronicity, unspecified heart failure type (HCC); Hypersomnia; Hives; Abnormal pulse oximetry Start: 04-22-2025 End: 04-22-2025 Follow-up encounter Anais LYNN Work Phone: [facility] Comment on above: Results Start: 04-20-2025 End: 04-20-2025 Patient encounter procedure Damon Eugene APRN.CULTURE MANAGER Work Phone: [facility] Comment on above: Acute cystitis with hematuria; Candidal intertrigo; Confusion Start: 04-20-2025 End: 04-20-2025 ambulatory DAMON EUGENE Facility:[facility] Start: 04-06-2025 End: 04-06-2025 ambulatory Lisa Goodman AVIATION TACTICAL READINESS OFFICER.CULTURE MANAGER Work Phone: [facility] Comment on above: Sleep Study Start: 03-31-2025 End: 03-31-2025 Patient encounter procedure Janette Damon APRN.CULTURE MANAGER Work Phone: [facility] Comment on above: Essential (primary) hypertension; Atrial flutter, unspecified type (HCC) Start: 03-31-2025 End: 03-31-2025 ambulatory JANETTE DAMON Facility:[facility] Start: 03-30-2025 End: 03-30-2025 ambulatory Bryan Elena [place] [place]: 03-30-2025 End: 03-30-[address] Bryan Elena MD -[facility] Work Phone: Start: 03-10-2025 End: 03-10-2025 Office outpatient visit 15 minutes Lisa Goodman AVIATION TACTICAL READINESS OFFICER.CULTURE MANAGER Work Phone: [facility] Comment on above: Daytime sleepiness ( Primary Dx); Stage 3 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); Chronic respiratory failure with hypoxia (HCC) Start: 03-10-2025 End: 03-10-2025 ambulatory PHUC MARTINES Facility:[facility] Start: 03-01-2025 End: 03-01-2025 Patient encounter procedure Janette Damon APRN.CULTURE MANAGER Work Phone: [facility] Comment on above: Hospital discharge f ollow-up (Primary Dx); Atrial flutter, unspecified type (HCC); Congestive heart failure, unspecified HF chronicity, unspecified heart failure type (HCC); Stage 3 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); Oxygen dependent; Essential hypertension Start: 03-01-2025 End: 03-01-2025 ambulatory PHUC MARTINES [facility] [facility] Start: 02-23-2025 Non-patient / Non-visit Dr. Yee Jones MD -[facility] Work Phone: Start: 02-22-2025 Non-patient / Non-visit Dr. Yee Jones MD [facility] Work Phone: Start: 02-21-2025 Non-patient / Non-visit Dr. Claudia Valerio DO [facility] Work Phone: Start: 02-20-2025 ambulatory Mercy Purvis [facility] Start: 02-20-2025 Non-patient / Non-visit Dr. Mercy smith MD -[facility] Start: 02-20-2025 Non-patient / Non-visit Dr. Claudia Valerio DO [facility] Work Phone: Start: 02-19-2025 ambulatory Kym Norton Facility:[facility] Start: 02-19-2025 End: 02-23-2025 Evaluation and management of inpatient Dr. Yee Jones MD -[facility] Work Phone: Start: 01-26-2025 End: 01-26-2025 Follow-up encounter Maricruz Camp APRN.CULTURE MANAGER Work Phone: Pulmonary Medicine Start: 01-25-2025 End: 01-25-2025 Patient encounter procedure Maricruz Camp APRN.CULTURE MANAGER Work Phone: Pulmonary Medicine Comment on above: Multiple lung nodule s (Primary Dx); Former tobacco use Start: 01-25-2025 End: 01-25-2025 ambulatory MARICRUZ CAMP Facility:[facility] Start: 01-25-2025 End: 01-25-2025 Subsequent hospital visit by physician [facility] (I-Stat) Work Phone: Cat Scan Start: 01-21-2025 End: 03-23-2025 Follow-up encounter Pratibha King APRN.CULTURE MANAGER Work Phone: [facility] [place] Start: 01-20-2025 End: 01-20-2025 ambulatory PHUC L MARTINES Facility:[facility] Start: 01-20-2025 End: 01-20-2025 Patient encounter procedure Phuc Osmany TaylorMartines DO Work Phone: [facility] Comment on above: Medicare annual well ness visit, subsequent (Primary Dx); Hair thinning; Fatigue, unspecified type; Impaired fasting glucose; Dyslipidemia; Vitamin D deficiency; Stage 3 severe COPD by GOLD classification ([facility]); Essential hypertension; Oxygen dependent; Morbid obesity with BMI of 45.0-49.9, adult ([facility]) Start: 01-13-2025 End: 01-13-2025 ambulatory PHCU L MARTINES Facility:[facility] Start: 12-25-2024 End: 12-25-2024 ambulatory PHUC L MARTINES Facility:[facility] Start: 12-25-2024 End: 12-25-2024 Office outpatient visit 15 minutes Lisa Goodman APRN.CULTURE MANAGER Work Phone: Pulmonary Medicine Comment on above: Stage 3 severe COPD by GOLD classification ([facility]) (Primary Dx); Chronic respiratory failure with hypoxia (HCC); Former cigarette smoker Start: 12-03-2024 End: 12-03-2024 ambulatory PHUC L MARTINES Facility:[facility] Start: 12-03-2024 End: 12-03-2024 Subsequent hospital visit by physician Screen Mammo [facility] Mammogram Comment on above: Encounter for screen ing mammogram for breast cancer [Z12.31] Start: 11-27-2024 End: 11-27-2024 Refill Phuc Taylorrison DO Work Phone: [facility] Comment on above: Refill Request; Lab Orders Start: 11-11-2024 End: 11-11-2024 ambulatory Julianne Donald MA [facility] Start: 11-11-2024 End: 11-11-2024 Patient encounter procedure Julianne Donald MA [facility] Comment on above: Population Health Na v[facility] Outreach (KERRI MEEHAN [facility]SA) Start: 11-05-2024 End: 11-05-2024 ambulatory Patricia Kevin ROLAND Pulmonary Medicine Start: 10-21-2024 End: 10-26-2024 ambulatory Phuc Fraustoon DO Work Phone: Internal Medicine [facility] Start: 10-20-2024 End: 10-20-2024 ambulatory Maricruz Camp APRN.CULTURE MANAGER Work Phone: Pulmonary Medicine Start: 10-19-2024 End: 10-19-2024 E-mail encounter from caregiver Hodan Christine PA-C Work Phone: Pulmonary Medicine Start: 10-19-2024 End: 10-19-2024 Patient encounter procedure Maricruz Camp APRN.CULTURE MANAGER Work Phone: Pulmonary Medicine Comment on above: Multiple lung nodule s (Primary Dx); Encounter for screening for lung cancer; Former tobacco use Start: 10-19-2024 End: 10-19-2024 ambulatory Hodan Christine PA-C Work Phone: Pulmonary Medicine Comment on above: check in Start: 10-19-2024 End: 10-19-2024 Subsequent hospital visit by physician [facility] (I-Stat) Work Phone: Cat Scan Comment on above: Former cigarette smo ker [Z87.891] Start: 08-13-2024 End: 08-13-2024 ambulatory Phuc Martines DO Work Phone: Family Medicine [place] Comment on above: Pap and Mammo Start: 07-17-2024 End: 07-17-2024 Refill Vicky Duong APRN.CULTURE MANAGER Work Phone: Family Medicine [place] Comment on above: Refill Request Start: 06-26-2024 End: 06-26-2024 ambulatory DIANA GONZALEZ Facility:[facility] Start: 06-26-2024 End: 06-26-2024 Patient encounter procedure Diana Gonzalez MD Work Phone: Pulmonary Medicine Comment on above: Stage 3 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) (Primary Dx); Chronic hypoxemic respiratory failure (HCC); Former cigarette smoker; Morbid obesity (HCC) Start: 05-06-2024 End: 05-06-2024 Emergency department patient visit Dane Jerardo Facility:[facility] Start: 04-26-2024 End: 04-26-2024 ambulatory PHUC MARTINES Facility:[facility] Start: 04-26-2024 End: 04-26-2024 Patient encounter procedure Damon Eugene APRN.CULTURE MANAGER Work Phone: [facility] Comment on above: Skin infection (Prim luna Dx) Start: 03-30-2024 Telephone encounter Phuc robins DO Work Phone: [facility] Comment on above: Patient Update Start: 03-13-2024 End: 03-13-2024 Patient encounter procedure Phuc Martines DO Work Phone: [facility] Comment on above: Acute bronchitis wit h chronic obstructive pulmonary disease (COPD) (HCC) (HCC) (Primary Dx); Chronic obstructive pulmonary disease, unspecified COPD type (HCC); Acute otitis media, left; Dyslipidemia; Impaired fasting glucose; Vitamin D deficiency; Essential hypertension; Stage 3 severe COPD by GOLD classification ([facility]); Fatigue, unspecified type; Oxygen dependent; Morbid obesity with BMI of 45.0-49.9, adult (HCC); Thoracic aortic ectasia (HCC) Start: 02-12-2024 Refill Phuc caban DO Work Phone: [facility] Comment on above: Refill Request Start: 01-29-2024 End: 01-29-2024 Patient encounter procedure Srikanth Estrada APRN.CULTURE MANAGER Work Phone: [facility] Comment on above: Skin infection (Prim luna Dx) Start: 12-26-2023 End: 12-26-2023 Patient encounter procedure Diana Gonzalez MD Work Phone: Pulmonary Medicine Comment on above: Stage 3 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) (Primary Dx); Chronic respiratory failure with hypoxia ([facility]); Morbid obesity with BMI of 45.0-49.9, adult ([facility]); Lung nodules Start: 12-24-2023 Telephone encounter Phuc robins DO Work Phone: [facility] [place] Comment on above: Orders Start: 10-08-2023 End: 10-08-2023 Subsequent hospital visit by physician [facility] (I-Stat) Work Phone: Cat Scan Comment on above: Former cigarette smo ker [Z87.891] Start: 09-17-2023 End: 09-17-2023 Subsequent hospital visit by physician Screen Mammo [facility] Mammogram Comment on above: Encounter for screen ing mammogram for malignant neoplasm of breast [Z12.31] Start: 08-16-2023 Telephone encounter Phuc Osmany Andrews kishasrini DO Work Phone: [facility] [place] Comment on above: Results Start: 08-14-2023 End: 08-14-2023 Patient encounter procedure Phuc Martines DO Work Phone: [facility] [place] Comment on above: Essential hypertensi on (Primary Dx); Need for influenza vaccination; Encounter for screening mammogram for malignant neoplasm of breast; Need for RSV immunization; Vitamin D deficiency; Impaired fasting glucose; Stage 3 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); Oxygen dependent; Fatigue, unspecified type; Rash of foot; Dyslipidemia Start: 07-28-2023 Refill Phuc caban DO Work Phone: [facility] [place] Comment on above: Refill Request Start: 06-13-2023 End: 06-13-2023 ambulatory Pulm Lab [facility] Work Phone: [facility] Comment on above: Spirometry Start: 06-13-2023 End: 06-13-2023 Patient encounter procedure [facility] Work Phone: [place] [facility] Comment on above: COPD, severe (HCC) ( Primary Dx); Chronic hypoxemic respiratory failure (HCC); Former cigarette smoker; Morbid obesity (HCC) Start: 05-30-2023 Telephone encounter Diana Gonzalez MD Work Phone: Pulmonary Medicine Comment on above: Patient Question (Adrián chan appt) Start: 03-06-2023 End: 03-06-2023 Subsequent hospital visit by physician [facility] Work Phone: Radiology Comment on above: Cyst of spleen [D73. 4] Start: 12-04-2022 Refill Phuc caban DO Work Phone: [facility] [place] Comment on above: Refill Request Start: 10-10-2022 End: 10-10-2022 ambulatory Pulm Lab [facility] Work Phone: [facility] Comment on above: Arrived Medicare corresponde nce Start: 10-10-2022 End: 10-10-2022 Patient encounter procedure Pulm Lab [facility] Work Phone: [place] [facility] [place] Start: 09-28-2022 End: 09-28-2022 Subsequent hospital visit by physician Xr [facility] [place] Work Phone: Radiology Comment on above: COVID [U07.1] Start: 09-28-2022 End: 09-28-2022 Patient encounter procedure Pratibha King AVIATION TACTICAL READINESS OFFICER.CULTURE MANAGER Work Phone: [facility] [place] Comment on above: COVID (Primary Dx); Chronic obstructive pulmonary disease, unspecified COPD type (HCC); Bacterial sinusitis; Oxygen dependent Start: 09-12-2022 Documentation procedure Mammog angel Coordinator [facility] Start: 09-12-2022 Letter encounter Mammography Coordinator [facility] Department Start: 09-12-2022 Telephone encounter Phuc robins DO Work Phone: [facility] [place] Comment on above: Forms Start: 09-11-2022 End: 09-11-2022 Subsequent hospital visit by physician Screen Mammo [facility] Mammogram Comment on above: Encounter for screen ing mammogram for breast cancer [Z12.31] Start: 09-06-2022 Telephone encounter Pratibha Ma APRN.CULTURE MANAGER Work Phone: [facility] [place] Comment on above: Results; Scheduling Start: 09-05-2022 ambulatory Phuc caban DO Work Phone: Internal Medicine [facility] [place] Start: 09-03-2022 End: 09-03-2022 Subsequent hospital visit by physician Us [facility] 2 Work Phone: Radiology Comment on above: Cyst of spleen [D73. 4] Start: 08-30-2022 Telephone encounter Pratibha Ma APRN.CULTURE MANAGER Work Phone: Family Medicine [place] Comment on above: Results Start: 08-29-2022 End: 08-29-2022 Subsequent hospital visit by physician [facility] (I-Stat) Work Phone: Cat Scan Comment on above: Chronic obstructive pulmonary disease, unspecified COPD type (HCC) [J44.9] Start: 08-03-2022 Telephone encounter Phuc robins DO Work Phone: Family Medicine [place] Comment on above: Forms Start: 08-01-2022 End: 08-01-2022 Patient encounter procedure Phuc Martnies DO Work Phone: Family Medicine [place] Comment on above: Chronic obstructive pulmonary disease, unspecified COPD type (HCC) (Primary Dx); Essential hypertension; Need for influenza vaccination; Impaired fasting glucose; Dyslipidemia; Chronic respiratory failure with hypoxia (HCC); Stage 3 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); Oxygen dependent Start: 07-04-2022 Orders Only Diana Gonzalez MD Work Phone: Pulmonary Medicine Comment on above: Chronic obstructive pulmonary disease, unspecified COPD type (HCC) (Primary Dx) Orders Start: 03-19-2022 ambulatory Hodan PalmerC Work Phone: Pulmonary Medicine Comment on above: results Start: 03-19-2022 E-mail encounter fro m caregiver Hodan VIVEROSC Work Phone: [place] [facility] [employer] Start: 03-16-2022 End: 03-16-2022 ambulatory Respiratory Therapist [facility] Work Phone: Pulmonary Medicine Comment on above: Spirometry Start: 03-16-2022 End: 03-16-2022 Patient encounter procedure Respiratory Therapist [facility] Work Phone: [facility] Comment on above: Chronic obstructive pulmonary disease, unspecified COPD type (HCC) (Primary Dx); Chronic hypoxemic respiratory failure (HCC); Dyspnea and respiratory abnormalities; Former smoker Start: 03-07-2022 Refill Phuc Taylordelaney mee DO Work Phone: [facility] [place] Comment on above: Refill Request Start: 02-09-2022 End: 02-09-2022 Patient encounter procedure Hodan Christine PA-C Work Phone: Pulmonary Medicine Comment on above: Chronic obstructive pulmonary disease, unspecified COPD type (HCC) (Primary Dx); Dyspnea and respiratory abnormalities Start: 01-30-2022 End: 01-30-2022 Patient encounter procedure Phuc Martines DO Work Phone: [facility] [place] Comment on above: Chronic obstructive pulmonary disease, unspecified COPD type (HCC) (Primary Dx); Essential hypertension; Impaired fasting glucose; Dyslipidemia; Vitamin D deficiency; Lightheaded Start: 01-10-2021 End: 01-10-2021 Subsequent hospital visit by physician Pedro [facility] [place] Work Phone: Radiology Comment on above: Acute gout involving toe of right foot, unspecified cause [M10.9] Start: 05-19-2019 End: 10-13-2019 Physical examination Phuc Martines DO Work Phone: [facility] Start: 09-10-2018 End: 09-10-2018 Patient encounter procedure [facility] Start: 09-05-2018 Encounter for other preprocedural examination [facility] Start: 09-05-2018 End: 09-05-2018 Patient encounter procedure [facility] Start: 11-09-2016 End: 10-13-2019 Patient encounter status Phuc Martines DO Work Phone: [facility] Procedures Date Procedure Procedure Detail Performing Clinician Start: 04-20-2025 Urnls dip stick/tabl et rgnt auto w/o microscopy [facility] Provider Start: 02-23-[address] Phuc Martines DO Work Phone: Start: 02-22-2025 Serum inorganic phos phate measurement Dr. Phuc Martines DO Work Phone: Start: 02-20-[address] Phuc Martines DO Work Phone: Start: 02-20-2025 CT angiography of ch est with contrast Dr. Phuc Martines DO Work Phone: Start: 02-19-2025 Urnls dip stick/tabl et reagent auto microscopy Dr. Phuc Martines DO Work Phone: Start: 02-19-[address] Aislinn Martines DO Work Phone: Start: 02-19-2025 SARS-CoV-2, Influenz a & RSV (PCR) Dr. Phuc Martines DO Work Phone: Start: 02-19-[address] Aislinn Martines DO Work Phone: Start: 02-19-2025 X-ray of chest, PA a nd lateral views Dr. Phuc Martines DO Work Phone: Start: 01-25-2025 Ct thor[facility] w/[facility] contra [facility] AVIATION TACTICAL READINESS OFFICER.CULTURE MANAGER Work Phone: Start: 01-13-2025 Lipid 1996 panel - S joaquin or Plasma Phuc Martines DO Work Phone: Start: 12-03-2024 Screening digital br east tomosynthesis bi Bulk Order Provider Start: 10-19-2024 CT LUNG SCREEN WO IVCON Maricruz Millbrook AVIATION TACTICAL READINESS OFFICER.CULTURE MANAGER Work Phone: Start: 03-13-2024 Adult depression scr eening assessment Diana Gonzalez MD Work Phone: Start: 03-11-2024 Lipid 1996 panel - S joaquin or Plasma Phuc Martines DO Work Phone: Start: 09-17-2023 Screening mammograph y bi 2-view breast inc cad Phuc Martines DO Work Phone: Start: 08-14-2023 INFLUENZA VACCINE, P RSV FREE, AGE 65+ YR, HIGH DOSE, QUADRIVALENT (FLUZONE HIGH-DOSE) Phuc Ceron Martines DO Work Phone: Start: 08-14-2023 Lipid 1995 panel - S joaquin or Plasma Phuc Martines DO Work Phone: Start: 06-13-2023 Noninvasive ear/puls e oximetry multiple deter Hodan Christine PA-C Work Phone: Start: 03-06-2023 Us abdominal real ti me w/image limited [facility] AVIATION TACTICAL READINESS OFFICER.CULTURE MANAGER Work Phone: Start: 10-10-2022 Noninvasive ear/puls e oximetry multiple deter Phuc L Martines DO Work Phone: Start: 09-28-2022 Radiologic exam ches t 2 views [facility] AVIATION TACTICAL READINESS OFFICER.CULTURE MANAGER Work Phone: Start: 09-11-2022 End: 09-11-2022 Mammography Bulk Order Provider Start: 09-03-2022 Us abdominal real ti me w/image limited [facility] AVIATION TACTICAL READINESS OFFICER.CULTURE MANAGER Work Phone: Start: 08-29-2022 Ct thorax w/o contra st material Phuc Ceron Martines DO Work Phone: Start: 08-01-2022 INFLUENZA VACCINE QUADRIVALENT 6 MO - 64 YRS IM Phuc Ceron Martines DO Work Phone: Start: 07-30-2022 Lipid 1995 panel - S joaquin or Plasma Phuc Martines DO Work Phone: Start: 05-01-2022 Adult depression scr eening assessment Diana Gonzalez MD Work Phone: Start: 03-16-2022 Noninvasive ear/puls e oximetry multiple deter Hodan Christine PA-C Work Phone: Start: 03-16-2022 Spmtry w/vc expirato ry martin w/wo mxml vol vntj Hodan Christine PA-C Work Phone: Start: 04-26-2021 Adult depression scr eening assessment Phuc Taylorrison DO Work Phone: Start: 01-10-2021 Radex foot complete minimum 3 views Tierra Villatoro PA-C Work Phone: Start: 09-02-2020 Mammography Phuc quiñonez DO Work Phone: Start: 09-10-2018 Colonoscopy Phuc quiñonez DO Work Phone: Plan of Treatment Date Care Activity Detail Author Start: 01-13-2030 Lipid panel Lipid Screening [facility] Start: 03-11-2029 Lipid panel Lipid Screening [facility] Start: 09-10-2028 Colonoscopy COLONOSCOPY [facility] Start: 09-10-2028 COLORECTAL CANCER SCREENING COLORECTAL CANCER SCREENING [facility] Start: 09-10-2028 Screening for malign ant neoplasm of colon [facility] Start: 08-14-2028 Lipid 1996 panel - S joaquin or Plasma Lipid Screening [facility] Start: 08-14-2028 Lipid panel Lipid Screening [facility] Start: 01-14-2028 Diabetes Screening Diabetes Screenin g [facility] Start: 07-30-2027 Lipid 1996 panel - S joaquin or Plasma Lipid Screening [facility] Start: 07-30-2027 LIPID SCREEN LIPID SCREEN [facility] Start: 03-11-2027 Diabetes Screening Diabetes Screenin [facility] Start: 01-26-2027 LIPID SCREEN LIPID SCREEN [facility] Start: 08-14-2026 Diabetes Screening Diabetes Screenin g [facility] Start: 04-23-2026 Annual PCP Team Footwear Stitcher tiffanie Disease Visit Annual PCP Team Chronic Disease Visit [facility] Start: 03-31-2026 Annual PCP Team Footwear Stitcher tiffanie Disease Visit Annual PCP Team Chronic Disease Visit [facility] Start: 03-01-2026 Annual PCP Team Footwear Stitcher tiffanie Disease Visit Annual PCP Team Chronic Disease Visit [facility] Start: 03-01-2026 BP Controlled (<130/80) BP Controlle d (<130/80) [facility] Start: 01-20-2026 Annual PCP Team Footwear Stitcher tiffanie Disease Visit Annual PCP Team Chronic Disease Visit [facility] Start: 01-20-2026 Medicare Annual Well ness Visit Medicare Annual Wellness Visit [facility] Start: 12-03-2025 Screening for malign ant neoplasm of breast Mammogram Screening [facility] Start: 11-09-2025 Urine microalbumin profile [facility] Start: 09-27-2025 End: 09-27-2025 Patient encounter procedure 09/27/2025 8:20 AM EST Office Visit Cardiology [address] [place] [address] Toribio Robertson MD [address] [facility] [address] [place] [address] Dx: Atrial flutter, unspecified type (HCC) [I48.92]; Congestive heart failure, unspecified HF chronicity, unspecified heart failure type (HCC) [I50.9] Cardiology Comment on above: Dx: Atrial flutter, unspecified type (HCC) [I48.92]; Congestive heart failure, unspecified HF chronicity, unspecified heart failure type (HCC) [I50.9] Start: 09-02-2025 HPV TESTING HPV TESTING [facility] Start: 09-02-2025 PAP TESTING PAP TESTING [facility] Start: 07-30-2025 DIABETES SCREEN DIABETES SCREEN [facility] Start: 07-30-2025 Diabetes Screening Diabetes Screenin g [facility] Start: 07-29-2025 End: 07-29-2025 Patient encounter procedure Cat Scan Comment on above: 6 month LDCT 6 month LCS Start: 07-23-2025 End: 07-23-2025 Patient encounter procedure 07/23/2025 12:00 PM EDT Office Visit Family Medicine [place] [address] [place], [place] [id number] Phuc Martines, [address] [place] [address] 6 month follow up [facility] Comment on above: 6 month follow up Start: 06-22-2025 End: 06-22-2025 Patient encounter procedure Pulmonary Medicine Comment on above: 6 month f/u Start: 05-17-2025 End: 05-17-2025 Patient encounter procedure 05/17/2025 9:00 PM EDT Office Visit Neurology [address] [place] [address] Daytime sleepiness [R40.0] Neurology Comment on above: Daytime sleepiness [ R40.0] Start: 04-23-2025 End: 04-23-2025 Patient encounter procedure 04/23/2025 3:00 PM EDT Office Visit [facility] [place] [address] [place] [address] Terrie Robledo APRN.CULTURE MANAGER [address] [facility] [place] [address] increased confussion [facility] Comment on above: increased confussion Start: 03-31-2025 End: 03-31-2025 Patient encounter procedure 03/31/2025 1:00 PM EDT Office Visit Family Medicine [place] [address] [place] [address] PodJanette esquivel APRN.CULTURE MANAGER [address] [facility] [place] [address] BP follow up [facility] Comment on above: BP follow up Start: 03-30-2025 Patient referral [facility] Work Phone: Start: 03-30-2025 Evaluation of diagno stic study results [facility] Start: 03-13-2025 Annual PCP Team Footwear Stitcher tiffanie Disease Visit Annual PCP Team Chronic Disease Visit [facility] Start: 03-13-2025 Anxiety Screening Anxiety Screening [facility] Start: 03-13-2025 Depression Screening Depression Scre [facility] Start: 03-10-2025 End: 03-10-2025 Patient encounter procedure 03/10/2025 1:00 PM EDT Office Visit Pulmonary Medicine [address] [facility] [place] [address] Lisa Goodman APRN.CULTURE MANAGER [address] [place] [address] recent hospital stay Pulmonary Medicine Comment on above: recent hospital stay Start: 02-23-2025 Patient discharge [facility] Start: 02-20-2025 Vital signs measurements [facility] Start: 02-20-2025 Continuous pulse oximetry [facility] Start: 02-20-2025 Vital signs measurements [facility] Start: 02-20-2025 Vital signs measurements [facility] Start: 02-20-2025 Care planning and pr oblem solving actions [facility] Start: 02-20-2025 Vital signs measurements [facility] Start: 02-20-2025 Vital signs measurements [facility] Start: 02-20-2025 Vital signs measurements [facility] Start: 02-20-2025 Vital signs measurements [facility] Start: 02-20-2025 Dual pressure sponta neous ventilation support [facility] Start: 02-20-2025 Physiotherapy of chest [facility] Start: 02-19-2025 Vital signs measurements [facility] Start: 02-19-2025 Vital signs measurements [facility] Start: 02-19-2025 Vital signs measurements [facility] Start: 02-19-2025 Application of elast ic bandage [facility] Start: 02-19-2025 Assessment of risk o f venous thromboembolism [facility] Start: 02-19-2025 Bedrest [facility] Start: 02-19-2025 Elevation of affecte d extremity [facility] Start: 02-19-2025 Elevation of head of bed [facility] Start: 02-19-2025 Insertion of cathete r into peripheral vein [facility] Start: 02-19-2025 Measuring intake and output [facility] Start: 02-19-2025 Notification of physician [facility] Start: 02-19-2025 Oxygen therapy [facility] Start: 02-19-2025 Patient education [facility] Start: 02-19-2025 Providing care accor ding to standard [facility] Start: 02-19-2025 Referral to service [facility] Start: 02-19-2025 [facility] Start: 02-19-2025 Vital signs measurements [facility] Start: 02-19-2025 Following clinical pathway protocol [facility] Start: 02-19-2025 Admission procedure [facility] Start: 02-19-2025 End: 02-19-2025 [facility] Start: 02-19-2025 Blood culture Blood Culture [facility] Start: 02-19-2025 Inhalation therapy procedure [facility] Start: 02-17-2025 End: 02-17-2025 Patient encounter procedure 02/17/2025 4:20 PM EDT Office Visit Family Medicine [place] [address] [place] [address] Phuc Martines DO [address] [place] [address] FOLLOW UP [facility] [place] Comment on above: FOLLOW UP Start: 01-28-2025 BP Controlled (<130/80) BP Controlle d (<130/80) [facility] Start: 01-26-2025 DIABETES SCREEN DIABETES SCREEN [facility] Start: 01-25-2025 End: 01-25-2025 Patient encounter procedure Cat Scan Comment on above: LDCT [facility] Start: 01-20-2025 End: 01-20-2025 Patient encounter procedure 01/20/2025 3:00 PM EDT Office Visit [facility] [address] [facility] [place] [address] Phuc Martines DO [address] [place] [address] FOLLOW UP [facility] [place] Comment on above: FOLLOW UP Start: 01-20-2025 End: 04-21-2025 Cobalamin (Vitamin B12) [Mass/volume] in Serum or Plasma [facility] Comment on above: Expected: 01/20/2025 , Expires: 04/21/2025 Start: 01-20-2025 End: 04-21-2025 Folate [Mass/volume] in Serum or Plasma [facility] Comment on above: Expected: 01/20/2025 , Expires: 04/21/2025 Start: 01-20-2025 End: 04-21-2025 Iron and Iron binding capacity panel - Serum or Plasma [facility] Comment on above: Expected: 01/20/2025 , Expires: 04/21/2025 Start: 01-20-2025 End: 04-21-2025 Thyrotropin [Units/volume] in Serum or Plasma [facility] Work Phone: Comment on above: Expected: 01/20/2025 , Expires: 04/21/2025 Start: 01-20-2025 End: 04-21-2025 Thyroxine (T4) free [Mass/volume] in Serum or Plasma [facility] Comment on above: Expected: 01/20/2025 , Expires: 04/21/2025 Start: 01-20-2025 End: 04-21-2025 Triiodothyronine (T3) Free [Mass/volume] in Serum or Plasma [facility] Comment on above: Expected: 01/20/2025 , Expires: 04/21/2025 Start: 12-26-2024 End: 11-18-2025 CT Lung parenchyma WO contrast CT LUNG FOLLOWUP WO IVCON Radiology Routine Expected: 12/26/2024, Expires: 11/18/2025 [facility] Work Phone: Comment on above: Expected: 12/26/2024 , Expires: 11/18/2025 Start: 12-25-2024 End: 12-25-2024 Patient encounter procedure 12/25/2024 11:30 AM EST Office Visit Pulmonary Medicine [address] [place] [address] Lisa Goodman APRN.CULTURE MANAGER [address] [place] [id number] MTH F/U COPD Pulmonary Medicine Comment on above: 6 MTH F/U COPD Start: 12-03-2024 End: 12-03-2024 Patient encounter procedure 12/03/2024 11:10 AM EST Appointment Mammogram [address] [place] [address] Encounter for screening mammogram for breast cancer [Z12.31] Mammogram Comment on above: Encounter for screen ing mammogram for breast cancer [Z12.31] Start: 11-27-2024 End: 02-26-2025 CBC W Auto Differential panel - Blood COMPLETE BLOOD COUNT AND DIFFERENTIAL Lab Routine Dyslipidemia Expected: 11/27/2024, Expires: 02/26/2025 [facility] Comment on above: Expected: 11/27/2024 , Expires: 02/26/2025 Start: 11-27-2024 End: 02-26-2025 Comprehensive metabolic 2000 panel - Serum or Plasma COMPREHENSIVE METABOLIC PANEL Lab Routine Dyslipidemia Impaired fasting glucose Expected: 11/27/2024, Expires: 02/26/2025 [facility] Comment on above: Expected: 11/27/2024 , Expires: 02/26/2025 Start: 11-27-2024 End: 02-26-2025 Hemoglobin A1c in Blood HEMOGLOBIN A1C Lab Routine Impaired fasting glucose Expected: 11/27/2024, Expires: 02/26/2025 [facility] Work Phone: Comment on above: Expected: 11/27/2024 , Expires: 02/26/2025 Start: 11-27-2024 End: 02-26-2025 Lipid 1996 panel - Serum or Plasma LIPID PANEL BASIC Lab Routine Dyslipidemia Expected: 11/27/2024, Expires: 02/26/2025 [facility] Comment on above: Expected: 11/27/2024 , Expires: 02/26/2025 Start: 10-28-2024 Advance Directive Discussion Advance Directive Discussion [facility] Start: 10-19-2024 End: 10-19-2024 Patient encounter procedure Cat Scan Comment on above: LUNG SCREENING CT LUNG SCREENING Start: 09-17-2024 Mammography Mammogram Screening [facility] Start: 09-17-2024 Screening for malign ant neoplasm of breast Mammogram Screening [facility] Start: 09-08-2024 End: 09-08-2024 Patient encounter procedure 09/08/2024 10:40 AM EST Office Visit Family [place] [address] [place] [address] Phuc Martines DO [address] [place] [address] 6 month follow up Family Medicine [place] Comment on above: 6 month follow up Start: 08-14-2024 Annual PCP Team Footwear Stitcher tiffanie Disease Visit Annual PCP Team Chronic Disease Visit [facility] Start: 08-14-2024 BP Controlled (<130/80) BP Controlle d (<130/80) [facility] Start: 06-28-2024 Covid-19 Vaccine () Covid-19 Vaccine () [facility] Start: 06-28-2024 Covid-19 Vaccine ( season) Covid-19 Vaccine ( season) [facility] Start: 06-28-2024 Influenza vaccination Influenza Vacc ine (#1) [facility] Start: 06-26-2024 End: 06-26-2024 Patient encounter procedure 06/26/2024 11:45 AM EDT Office Visit Pulmonary Medicine [address] [place], [place] [id number] Diana Gonzalez MD [address] [place], [place] [address] 6 month f/u Pulmonary Medicine Comment on above: 6 month f/u Start: 04-26-2024 End: 07-26-2024 Bacteria identified in Wound by Culture ABSCESS AND WOUND CULTURE WITH GRAM STAIN Microbiology Routine Skin infection Expected: 04/26/2024, Expires: 07/26/2024 [facility] Work Phone: Comment on above: Expected: 04/26/2024 , Expires: 07/26/2024 Start: 02-07-2024 ANNUAL PCP TEAM FLAT FOLDING MACHINE OPERATOR TIFFANIE DISEASE VISIT ANNUAL PCP TEAM CHRONIC DISEASE VISIT [facility] Start: 12-24-2023 End: 03-24-2024 CBC W Auto Differential panel - Blood CBC + DIFF Lab Routine Dyslipidemia Expected: 12/24/2023, Expires: 03/24/2024 [facility] Work Phone: Comment on above: Expected: 12/24/2023 , Expires: 03/24/2024 Start: 12-24-2023 End: 03-24-2024 Comprehensive metabolic 2000 panel - Serum or Plasma COMP METABOLIC PANEL Lab Routine Dyslipidemia Expected: 12/24/2023, Expires: 03/24/2024 [facility] Work Phone: Comment on above: Expected: 12/24/2023 , Expires: 03/24/2024 Start: 12-24-2023 End: 03-24-2024 Hemoglobin A1c in Blood HGB A1C Lab Routine Impaired fasting glucose Expected: 12/24/2023, Expires: 03/24/2024 [facility] Work Phone: Comment on above: Expected: 12/24/2023 , Expires: 03/24/2024 Start: 12-24-2023 End: 03-24-2024 Lipid 1996 panel - Serum or Plasma LIPID PANEL BASIC Lab Routine Dyslipidemia Expected: 12/24/2023, Expires: 03/24/2024 [facility] Work Phone: Comment on above: Expected: 12/24/2023 , Expires: 03/24/2024 Start: 10-28-2023 Advance Directive Discussion Advance Directive Discussion [facility] Start: 10-28-2023 Behavioral Health Screening Behavioral Health Screening [facility] Start: 10-28-2023 Depression Assessment Depression Ass essment [facility] Start: 09-28-2023 ANNUAL PCP TEAM FLAT FOLDING MACHINE OPERATOR TIFFANIE DISEASE VISIT ANNUAL PCP TEAM CHRONIC DISEASE VISIT [facility] Start: 09-11-2023 Mammography [facility] Start: 08-29-2023 Influenza vaccination LUNG CANCER SC REENING [facility] Start: 08-29-2023 Screening for malign ant neoplasm of lung Lung Cancer Screening [facility] Start: 08-14-2023 End: 11-13-2023 25-hydroxyvitamin D3 [Mass/volume] in Serum or Plasma [facility] Work Phone: Comment on above: Expected: 08/14/2023 , Expires: 11/13/2023 Start: 08-14-2023 End: 11-13-2023 Cobalamin (Vitamin B12) [Mass/volume] in Serum or Plasma [facility] Work Phone: Comment on above: Expected: 08/14/2023 , Expires: 11/13/2023 Start: 08-14-2023 End: 11-13-2023 Comprehensive metabolic 2000 panel - Serum or Plasma [facility] Work Phone: Comment on above: Expected: 08/14/2023 , Expires: 11/13/2023 Start: 08-14-2023 End: 11-13-2023 Hemoglobin A1c in Blood [facility] Work Phone: Comment on above: Expected: 08/14/2023 , Expires: 11/13/2023 Start: 08-14-2023 End: 11-13-2023 Lipid 1996 panel - Serum or Plasma [facility] Work Phone: Comment on above: Expected: 08/14/2023 , Expires: 11/13/2023 Start: 08-14-2023 End: 11-13-2023 Thyrotropin [Units/volume] in Serum or Plasma [facility] Work Phone: Comment on above: Expected: 08/14/2023 , Expires: 11/13/2023 Start: 08-14-2023 End: 11-13-2023 Thyroxine (T4) free [Mass/volume] in Serum or Plasma [facility] Work Phone: Comment on above: Expected: 08/14/2023 , Expires: 11/13/2023 Start: 08-14-2023 End: 11-13-2023 Triiodothyronine (T3) Free [Mass/volume] in Serum or Plasma [facility] Work Phone: Comment on above: Expected: 08/14/2023 , Expires: 11/13/2023 Start: 08-01-2023 ANNUAL PCP TEAM FLAT FOLDING MACHINE OPERATOR TIFFANIE DISEASE VISIT ANNUAL PCP TEAM CHRONIC DISEASE VISIT [facility] Start: 06-28-2023 Covid-19 Vaccine ( season) Covid-19 Vaccine ( season) [facility] Start: 06-28-2023 Influenza vaccination C [facility] Start: 05-01-2023 Adult depression screening assessment DEPRESSION SCREENING [facility] Start: 05-01-2023 ANNUAL PCP TEAM FLAT FOLDING MACHINE OPERATOR TIFFANIE DISEASE VISIT ANNUAL PCP TEAM CHRONIC DISEASE VISIT [facility] Start: 03-06-2023 End: 10-06-2023 Us abdominal real time w/image limited US ABD SPLEEN Radiology Routine Cyst of spleen Expected: 03/06/2023, Expires: 10/06/2023 [facility] Work Phone: Comment on above: Expected: 03/06/2023 , Expires: 10/06/2023 Start: 01-30-2023 ANNUAL PCP TEAM FLAT FOLDING MACHINE OPERATOR TIFFANIE DISEASE VISIT ANNUAL PCP TEAM CHRONIC DISEASE VISIT [facility] Start: 01-30-2023 BP CONTROLLED (<130/80) BP CONTROLLE D (<130/80) [facility] Start: 01-30-2023 zzBP Controlled (<13 0/80) (Retired) zzBP Controlled (<130/80) (Retired) [facility] Start: 10-28-2022 ADVANCE DIRECTIVE DISCUSSION ADVANCE DIRECTIVE DISCUSSION [facility] Start: 10-28-2022 DEPRESSION ASSESSMENT DEPRESSION ASS ESSMENT [facility] Start: 2022 ADVANCE DIRECTIVE DISCUSSION ADVANCE DIRECTIVE DISCUSSION [facility] Start: 2022 BONE DENSITY BONE DENSITY [facility] Start: 2022 Bone Density Screening Bone Density Screening [facility] Start: 2022 PNEUMOCOCCAL (3 - PP SV23 if available, else PCV20) PNEUMOCOCCAL (3 - PPSV23 if available, else PCV20) [facility] Start: 2022 PNEUMOCOCCAL (3 - PP SV23 or PCV20) PNEUMOCOCCAL (3 - PPSV23 or PCV20) [facility] Start: 2022 PNEUMOCOCCAL: 65+ (3 - PPSV23 if available, else PCV20) PNEUMOCOCCAL: 65+ (3 - PPSV23 if available, else PCV20) [facility] Start: 2022 Screening for osteoporosis Bone Density Screening [facility] Start: 06-28-2022 Influenza vaccination INFLUENZA (#1) [facility] Start: 05-05-2022 Influenza vaccination LUNG CANCER SC [facility] Start: 04-26-2022 Adult depression screening assessment DEPRESSION SCREENING [facility] Start: 12-16-2021 COVID-19 VACCINE (4 - Booster for Pfizer series) COVID-19 VACCINE (4 - Booster for Pfizer series) [facility] Start: 10-10-2021 COVID-19 VACCINE (4 - Booster for Pfizer series) COVID-19 VACCINE (4 - Booster for Pfizer series) [facility] Start: 10-10-2021 COVID-19 VACCINE (4 - Pfizer series) COVID-19 VACCINE (4 - Pfizer series) [facility] Start: 09-02-2021 Mammography MAMMOGRAM [facility] Start: 2017 RSV Vaccine (1 - 1-d ose 60+ series) RSV Vaccine (1 - 1-dose 60+ series) [facility] Start: 06-30-2016 FECAL OCCULT BLOOD FECAL OCCULT BLOO D [facility] Start: 06-30-2016 Screening for malign ant neoplasm of colon Fecal Occult Blood [facility] Start: 2002 COLOGUARD (FIT-DNA) COLOGUARD (FIT-D NA) [facility] Start: [address] COLONOGRAPHY [facility] Start: 2002 Screening for malign ant neoplasm of colon [facility] Start: 2002 SIGMOIDOSCOPY SIGMOIDOSCOPY [facility] Start: 1975 HIV SCREENING HIV SCREENING [facility] Bacteria identified in Urine by Culture BACTERIAL CULTURE, URINE Microbiology Routine Acute cystitis with hematuria 04/20/2025 11:11 AM EDT [facility] Work Phone: End: 02-25-2026 CT Lung parenchyma WO contrast CT LUNG FOLLOWUP WO IVCON Radiology Routine Lung nodules 1 Occurrences starting 01/26/2025 until 02/25/2026 [facility] Work Phone: Comment on above: 1 Occurrences starti ng 01/26/2025 until 02/25/2026 CT LUNG SCREEN WO IVCON CT LUNG SCREEN WO IVCON Radiology Routine Former cigarette smoker 10/08/2023 1:24 PM EST [facility] Work Phone: End: 08-31-2023 Ct thorax w/o contrast material CT CHEST WO IVCON Radiology Routine Chronic obstructive pulmonary disease, unspecified COPD type (HCC) Chronic respiratory failure with hypoxia (HCC) Stage 3 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) Oxygen dependent 1 Occurrences starting 08/01/2022 until 08/31/2023 [facility] Work Phone: Comment on above: 1 Occurrences starti ng 08/01/2022 until 08/31/2023 End: 11-20-2025 DBT Breast - bilateral screening ANUSHA SCREENING W ASHLEY Radiology Routine Encounter for screening mammogram for breast cancer 1 Occurrences starting 10/21/2024 until 11/20/2025 [facility] Work Phone: Comment on above: 1 Occurrences starti ng 10/21/2024 until 11/20/2025 ECG COMPLETE ECG COMPLETE ECG Routine Tachycardia Atrial flutter, unspecified type (HCC) Ordered: 04/23/2025 [facility] Work Phone: Comment on above: Ordered: 04/23/2025 End: 02-09-2023 Echocardiography ECHO Cardiology Routine Chronic obstructive pulmonary disease, unspecified COPD type (HCC) 1 Occurrences starting 02/09/2022 until 02/09/2023 [facility] Work Phone: Comment on above: 1 Occurrences starti ng 02/09/2022 until 02/09/2023 End: 09-12-2024 ANUSHA SCREENING ANUSHA SCREENING Radiology Routine Encounter for screening mammogram for malignant neoplasm of breast 1 Occurrences starting 08/14/2023 until 09/12/2024 [facility] Work Phone: Comment on above: 1 Occurrences starti ng 08/14/2023 until 09/12/2024 Noninvasive ear/puls e oximetry multiple deter [id number] Procedures Routine Chronic obstructive pulmonary disease, unspecified COPD type (HCC) Oxygen dependent Ordered: 09/24/2022 [facility] Work Phone: Comment on above: Ordered: 09/24/2022 OXIMETRY - NOCTURNAL OXIMETRY - NOCTURNAL Procedures Routine Chronic obstructive pulmonary disease, unspecified COPD type (HCC) Chronic hypoxemic respiratory failure (HCC) Ordered: 03/16/2022 [facility] Work Phone: Comment on above: Ordered: 03/16/2022 OXIMETRY - NOCTURNAL OXIMETRY - NOCTURNAL Procedures Routine Chronic obstructive pulmonary disease, unspecified COPD type (HCC) Chronic respiratory failure with hypoxia (HCC) Stage 3 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) Oxygen dependent Ordered: 08/01/2022 [facility] Work Phone: Comment on above: Ordered: 08/01/2022 End: 03-11-2023 OXIMETRY WITH AMBULATION OXIMETRY WITH AMBULATION PFT Routine Chronic obstructive pulmonary disease, unspecified COPD type (HCC) 1 Occurrences starting 02/09/2022 until 03/11/2023 [facility] Work Phone: Comment on above: 1 Occurrences starti ng 02/09/2022 until 03/11/2023 End: 06-28-2024 OXIMETRY WITH AMBULATION OXIMETRY WITH AMBULATION PFT Routine Chronic obstructive pulmonary disease, unspecified COPD type (HCC) Oxygen dependent 1 Occurrences starting 05/30/2023 until 06/28/2024 [facility] Work Phone: Comment on above: 1 Occurrences starti ng 05/30/2023 until 06/28/2024 Patient Education Coping with He art Failure [facility] Work Phone: Patient referral [facility] Work Phone: End: 03-10-2026 Polysomnogram POLYSOMNOGRAM (PSG) Procedures Routine Daytime sleepiness 1 Occurrences starting 03/10/2025 until 03/10/2026 [facility] Work Phone: Comment on above: 1 Occurrences starti ng 03/10/2025 until 03/10/2026 End: 10-28-2023 Radiologic exam chest 2 views XR CHEST 2V FRONTAL/LAT Radiology Routine COVID Bacterial sinusitis Chronic obstructive pulmonary disease, unspecified COPD type (HCC) 1 Occurrences starting 09/28/2022 until 10/28/2023 [facility] Work Phone: Comment on above: 1 Occurrences starti ng 09/28/2022 until 10/28/2023 Radiologic exam ches t 2 views XR CHEST 2V FRONTAL/LAT Radiology Routine COVID Bacterial sinusitis Chronic obstructive pulmonary disease, unspecified COPD type (HCC) 09/28/2022 1:22 PM EST [facility] Work Phone: End: 10-05-2023 Screening mammography bi 2-view breast inc cad ANUSHA SCREENING Radiology Routine Encounter for screening mammogram for breast cancer 1 Occurrences starting 09/05/2022 until 10/05/2023 [facility] Work Phone: Comment on above: 1 Occurrences starti ng 09/05/2022 until 10/05/2023 End: 03-11-2023 SPIROMETRY BASELINE ONLY SPIROMETRY BASELINE ONLY PFT Routine Chronic obstructive pulmonary disease, unspecified COPD type (HCC) 1 Occurrences starting 02/09/2022 until 03/11/2023 [facility] Work Phone: Comment on above: 1 Occurrences starti ng 02/09/2022 until 03/11/2023 SPIROMETRY BASELINE ONLY SPIROME TRY BASELINE ONLY PFT Routine Chronic obstructive pulmonary disease, unspecified COPD type (HCC) 03/16/2022 8:57 AM EDT [facility] Work Phone: End: 09-29-2023 Us abdominal real time w/image limited US ABD SPLEEN Radiology Routine Cyst of spleen 1 Occurrences starting 08/30/2022 until 09/29/2023 [facility] Work Phone: Comment on above: 1 Occurrences starti ng 08/30/2022 until 09/29/2023 End: 04-12-2025 XR Chest PA and Lateral XR CHEST 2V FRONTAL/LAT Radiology Routine Chronic obstructive pulmonary disease, unspecified COPD type (HCC) Acute bronchitis with chronic obstructive pulmonary disease (COPD) (HCC) (HCC) 1 Occurrences starting 03/13/2024 until 04/12/2025 [facility] Work Phone: Comment on above: 1 Occurrences starti ng 03/13/2024 until 04/12/2025 [facility] Immunizations Immunization Date Immunization Notes Care Provider Lesvia maldonado 09-28-2024 influenza, high dose seasonal, preservative-free Maricruz Camp AVIATION TACTICAL READINESS OFFICER.CULTURE MANAGER Work Phone: [facility] 09-28-2024 respiratory syncytia l virus (RSV) vaccine, bivalent (ABRYSVO) Maricruz Camp AVIATION TACTICAL READINESS OFFICER.CULTURE MANAGER Work Phone: [facility] 08-14-2023 influenza (HD-IIV4) vaccine, age 65+ yr, high dose, quadrivalent, PF (FLUZONE HIGH-DOSE) Phuc Martines DO Work Phone: [facility] Work Phone: 08-14-2023 influenza virus vacc ine, unspecified formulation Diana Gonzalez MD Work Phone: [facility] 02-06-2023 pneumococcal (PCV20) vaccine, 20 valent (PREVNAR 20) Diana Gonzalez MD Work Phone: [facility] Work Phone: 08-01-2022 influenza, injectabl e, quadrivalent, contains preservative Phuc Martines DO Work Phone: [facility] Work Phone: 08-01-2022 influenza virus vacc ine, unspecified formulation Phuc Martines DO Work Phone: [facility] 08-15-2021 influenza, injectabl e, quadrivalent, preservative free Hodan Christine PA-C Work Phone: [facility] Work Phone: 01-03-2021 COVID-19 vaccine, ag e 12+ yr (PFIZER-BIONTECH - PURPLE TOP) Phuc Martines DO Work Phone: [facility] Work Phone: 12-15-2020 COVID-19 vaccine, ag e 12+ yr (PFIZER-BIONTECH - PURPLE TOP) Phuc Martines DO Work Phone: [facility] Work Phone: 07-06-2020 influenza, injectabl e, quadrivalent, contains preservative Phuc Martines DO Work Phone: [facility] Work Phone: 11-20-2019 zoster vaccine recombinant Phuc Martines DO Work Phone: [facility] Work Phone: 08-04-2019 influenza, injectabl e, quadrivalent, contains preservative Phuc Martines DO Work Phone: [facility] Work Phone: 08-30-2018 influenza, injectabl e, quadrivalent, contains preservative Phuc Martines DO Work Phone: [facility] 05-06-2018 zoster vaccine recombinant Phuc Martines DO Work Phone: [facility] Work Phone: 08-31-2017 influenza, injectabl e, quadrivalent, contains preservative Phuc Martines DO Work Phone: [facility] 05-06-2017 pneumococcal polysaccharide vaccine, 23 valent Phuc Martines DO Work Phone: [facility] 09-28-2016 pneumococcal conjuga te vaccine, 13 valent Phuc Martines DO Work Phone: [facility] 08-18-2016 influenza, injectabl e, quadrivalent, contains preservative Phuc Martines DO Work Phone: [facility] 08-01-2016 influenza, injectabl e, quadrivalent, preservative free Dr. Phuc Taylorrison DO Work Phone: [facility] 11-09-2015 tetanus toxoid, redu benigno diphtheria toxoid, and acellular pertussis vaccine, adsorbed Phuc Martines DO Work Phone: [facility] Work Phone: 07-28-2015 influenza, injectabl e, quadrivalent, contains preservative Phuc Martines DO Work Phone: [facility] Work Phone: 08-05-2014 influenza, seasonal, injectable Phuc Martines DO Work Phone: [facility] 09-05-2013 influenza virus vacc ine, unspecified formulation Phuc Martines DO Work Phone: [facility] Work Phone: 11-12-2012 influenza virus vacc ine, unspecified formulation Phuc Martines DO Work Phone: [facility] 09-03-2011 influenza virus vacc ine, unspecified formulation Phuc Martines DO Work Phone: [facility] Work Phone: 08-15-2010 influenza virus vacc ine, unspecified formulation Phuc Martines DO Work Phone: [facility] Work Phone: 07-28-2009 influenza virus vacc ine, unspecified formulation Phuc Martines DO Work Phone: [facility] 07-07-2008 pneumococcal polysaccharide vaccine, 23 valent Phuc Martines DO Work Phone: [facility] 11-19-2005 tetanus toxoid, redu benigno diphtheria toxoid, and acellular pertussis vaccine, adsorbed Phuc Martines DO Work Phone: [facility] Work Phone: Payers Date Payer Category Payer Self-pay 2022 [facility] [employer] SUPPLEMENT [id number] 2022 Medicare [id number] 2022 Medicare [id number] 2021 Unknown KATI SPAIN O JEAN MARIE [id number] 2021-Present [phone] [id number] [place], [place] [id number] [facility] [id number] 2017 Unknown [id number] 2014 Unknown [id number] Unknown [id number] Unknown [id number] Unknown [id number] Unknown [id number] Unknown [id number] Unknown [id number] Unknown [id number] Unknown [id number] Unknown [id number] Social History Date Type Detail Facility Start: 06-22-2022 End: 06-26-2024 Tobacco smoking status NJIS Ex-smoker [facility] Work Phone: Start: 1969 End: 12-20-2008 History of tobacco use Current smoker [facility] Start: 1971 End: 12-20-2008 History of tobacco use Cigarette Smoker [facility] Start: 01-30-2022 End: 04-23-2025 Alcohol intake Current drinker of alcohol (finding) [facility] Start: 05-28-2020 End: 09-02-2020 History SDOH Alcohol Frequency 5 [facility] Start: 09-02-2020 End: 10-30-2021 History SDOH Alcohol Std Drinks 2 [facility] Start: 11-14-2019 End: 05-28-2020 History SDOH Social Connections Get Together 3 [facility] Start: 05-28-2020 History SDOH Social Connections Adventism 98 [facility] Start: 11-14-2019 History SDOH Physica l Activity DPW 7 [facility] Start: 11-14-2019 End: 10-30-2021 History SDOH Physical Activity MPS 1 [facility] Start: 11-14-2019 Education 21 [facility] Start: 08-02-2015 End: 06-22-2022 Tobacco Comment Parents smoked in childhood home. Spouse smokes, not in home. [facility] Start: 1955 Sex Assigned At Female C [facility] Start: 12-11-2020 End: 09-28-2022 Exposure to SARS-CoV-2 (event) Not sure [facility] Work Phone: Start: 10-02-2020 End: 06-22-2022 Cigarettes smoked current (pack per day) - Reported 1 [facility] Work Phone: Start: 06-22-2022 End: 06-26-2024 Tobacco use and exposure Smokeless tobacco non-user [facility] Start: 10-02-2020 End: 02-06-2023 Tobacco use panel [facility] Work Phone: Adult Depression Screening Assessment 0 [facility] Work Phone: Start: 05-28-2020 Gender identity Identifies as female gender (finding) [facility] Start: 05-28-2020 Sexual orientation Heterosexual (fin ding) [facility] How often to you hav e a drink containing alcohol? 4 or more times a week [facility] Work Phone: How many standard drinks containing alcohol do you have on a typical day? 3 or 4 [facility] Work Phone: How often do you hav e 6 or more drinks on 1 occasion? Less than monthly [facility] Work Phone: Do you feel stress - tense, restless, nervous, or anxious, or unable to sleep at night because your mind is troubled all the time - these days [OSQ] Only a little [facility] (I/We) worried wheth er (my/our) food would run out before (I/we) got money to buy more. Never true [facility] Work Phone: In the past 12 month s, was there a time when you were not able to pay the mortgage or rent on time? No [facility] Are you now , , , , never or living with a partner? [facility] How often do you hav e 6 or more drinks on 1 occasion? Weekly [facility] How hard is it for y ou to pay for the very basics like food, housing, medical care, and heating Not very hard [facility] Start: 04-15-2017 Heavy Heavy [facility] Start: 04-15-2017 None None [facility] Start: 04-15-2017 Spouse/ Significant Other Spouse/ Significant Other [facility] Start: 04-15-2017 Non-smoker Non-smoker [facility] Start: 02-23-2025 Sex Female (finding) [facility] Goals Date Patient Goal Desired Activity /State Functional Status Date Assessment Result Facility 02-23-2025 Functional status Ambulates [facility] Work Phone: 05-09-2015 Are you deaf, or do you have serious difficulty hearing No 05/09/2015 3:40 PM EDT Carolina Horner Cma No [facility] 05-09-2015 Are you blind, or do you have serious difficulty seeing, even when wearing glasses No 05/09/2015 3:40 PM EDT Carolina Horner [facility] No [facility] 05-09-2015 Do you have serious difficulty walking or climbing stairs No 05/09/2015 3:40 PM EDT Carolina Horner [facility] No [facility] 05-09-2015 Do you have difficul ty dressing or bathing No 05/09/2015 3:40 PM EDCarolina Steele Cma No [facility] 05-09-2015 Because of a physica l, mental, or emotional condition, do you have difficulty doing errands alone such as visiting a physician's office or shopping No 05/09/2015 3:40 PM EDT Carolina Horner Cma [facility] Mental Status Date Assessment Result Facility 02-23-2025 Cognitive function Voice/Name [facility] Work Phone: 05-09-2015 Because of a physica l, mental, or emotional condition, do you have serious difficulty concentrating, remembering, or making decisions No 05/09/2015 3:40 PM EDT Carolina Horner C[facility] Clinical Notes 05-19-2019 to 04-23-2025 Patient InstructionsTerrie Robledo APRN.CNP - 04/23/2025 2:49 PM EDTTelephone Encounter - Sandra LandisJESSICA - 04/22/2025 8:29 AM EDTAddendum Note - Brandan Chang LPN - 04/20/2025 11:12 AM EDT Note Date & Type Note Facility 04-23-2025 Instructions Terrie Robledo APRN.CNP - 04/23/2025 3:31 PM EDT Sent patient to ER documented in this encounter [facility] 04-23-2025 History of Presen t illness Narrative This is a 69 year old female who presents today with: Increased confusion Express care follow up Subjective Lisa Lucero is a 69 year old female. Patient presents with: Skin Rashes: x 2 days mouth and nose thick mucous x 1 week HPI Increased Nasal and Urinary Mucus: - Chronic nasal mucus production, recently noted to be thicker. - Reports a basty sensation in the mouth. - Observes mucus when wiping after urination. - Denies taking any allergy medications. Confusion: - Onset of fuzzy headedness coincided with initiation of new medications in February, including Eliquis and metoprolol. - Symptoms have progressively worsened. - Has seen Janette Bautista twice, who focused on blood pressure management. Rash: - Noticed a rash in the fold of the back, described as yeasty. - Reports similar rashes on the breasts, questioning if they are hives. COPD: - Mild increase in coughing over the past few days, attributed to thicker mucus. - Denies pain with swallowing. Review of Systems Ears/Nose/Mouth/Throat: (+) nasal congestion, (+) dry mouth, (-) odynophagia Respiratory: (+) cough Genitourinary: (+) urinary mucus, (+) dysuria Skin: (+) intertriginous rash Neurological: (+) confusion Objective BP 132/80 Pulse 94 Temp 36.9 C (98.4 F) Resp 18 Wt 117 kg (257 lb 15 oz) SpO2 91% BMI 44.27 kg/m Physical Exam General: No acute distress. HEENT: Ears without abnormalities; oropharynx without erythema or exudate. CV: Heart sounds normal. Resp: Lungs clear to auscultation, no wheezing. Skin: Erythematous rash in intertriginous areas, blanchable. {1. Acute cystitis with hematuria (N30.01) - Urinalysis shows bilirubin, ketones, hematuria, proteinuria, and urobilinogen; possible dehydration due to Lasix use. - Initiated Macrobid BID for 5 days; if urine culture is negative, medication can be discontinued. - Advised to increase fluid intake to prevent dehydration. 2. Candidal intertrigo (B37.2) - Erythematous, blanchable rash observed in the intertriginous area of the back, consistent with candidal intertrigo. - Prescribed Nystatin cream for topical application. 3. Confusion (R41.0) - Onset coincides with initiation of new medications, including Eliquis and metoprolol. - Oxygen saturation initially low, improved to 93% after supplemental oxygen; low oxygen levels may contribute to confusion. - Scheduled an expedited follow-up appointment with primary care this week for further evaluation. and Recording using COM DEV software for draft documentation of the visit was discussed with the patient/authorized life assurance representative; all questions welcomed and answered. Patient/authorized life assurance representative agreed to proceed HISTORY OF PRESENT ILLNESS: Linwood was in the hospital in January for new onset of atrial flutter. She was initiated on eliquis and metoprolol and now being seen by cardiology. She was referred to a [facility] cardio electro doc and is in the process of setting up to have an ablation. She hasn't felt right since the hospital, falling asleep all the time, can't stay away, very fatigued. Increased dyspnea Dropping into the 70s with exertion and with oxygen on (3.5L at rest and 6L with activity) Generalized hives, reddened areas chest, flanks, breasts, legs, arms which she had some of before express care 04/20 with folds on back but the chest and extremities is new. She is currently on macrobid for suspected UTI but urine culture came back either negative or contaminated. She reports increased confusion, feeling out of it Moderate amount of blood and protein in urine 04/20 express care. She is on eliquis. Denies blood with wiping. PAST MEDICAL HISTORY: PAST MEDICAL HISTORY Diagnosis Date Atrial flutter (HCC) CHF (congestive heart failure) (HCC) Chronic hypoxemic respiratory failure (HCC) COPD (chronic obstructive pulmonary disease) ([facility]) 02/03/2010 Coronary artery disease No NE, CHF. No heart cath. Diverticulosis of colon (without mention of hemorrhage) Essential hypertension, benign Fibrocystic breast Former smoker Internal hemorrhoids without mention of complication Leiomyoma of uterus, unspecified Obstructive sleep apnea Mild. Not prescribed CPAP, only 2L nasal O2. PAST SURGICAL HISTORY Procedure Laterality Date BREAST LUMPECTOMY HX Right 1997 COLONOSCOPY FLX DX W/COLLJ SPEC WHEN PFRMD 08/27/08 repeat due 2017 COLONOSCOPY FLX DX W/COLLJ SPEC WHEN PFRMD 09/10/2018 Colonoscopy - due 2027 INGUINAL HERNIA REPAIR HX 1976 bilateral PAST SURGICAL HISTORY OF hemangioma left cheek REMOVAL OF IMPACTED TOOTH - COMPLETELY BONY WISDOM TEETH ALLERGIES Aleve [Naproxen] MEDICATIONS Current Outpatient Medications Medication Sig nitrofurantoin monohydrate and macrocrystal (MACROBID) 100 mg capsule Take 1 capsule by mouth two times a day for 5 days. nystatin (MYCOSTATIN) cream Apply to affected area two times a day for 14 days. apixaban (ELIQUIS) 5 mg tab(s) Take 5 mg by mouth two times a day. furosemide (LASIX) 40 mg tablet Take 40 mg by mouth two times a day. metoprolol tartrate, short acting, (LOPRESSOR) 50 mg tablet Take 50 mg by mouth two times a day. potassium chloride ER (KLOR-CON) 20 mEq tablet Take 20 mEq by mouth two times a day. mecobalamin (B12 ACTIVE ORAL) Take 1,000 mcg by mouth once daily. cinnamon bark (CINNAMON ORAL) Take by mouth once daily. albuterol HFA (PROVENTIL HFA, VENTOLIN HFA) 90 mcg/actuation inhaler Inhale 2 Puffs as instructed every 6 hours as needed for wheezing/shortness of breath. qugfmftitfc-oiptowaef-zinaqqpo (TRELEGY ELLIPTA) 200-62.5-25 mcg inhalation powder Inhale 1 Puff as instructed once daily. triamcinolone acetonide (KENALOG) 0.5 % cream Apply 1 application to affected area two times a day as needed (foot rash, eczema). For rash/itching. Apply sparingly. Avoid face/skin fold. ipratropium-albuterol (DUONEB) 0.5 mg-3 mg(2.5 mg base)/3 mL nebu Inhale 3 mL as instructed four times daily. Inhale via nebulizer over 5-15 minutes. OXYGEN, HOME THERAPY, 3.5L at night and 6L with exertion COMPOUNDED PRESCRIPTION Please dispense nebulizer and supply kit, including tubing, mouth piece, and hose. Assoc diagnosis: J44.9. Dispense: 1 each, Refills: 99. ASCORBIC ACID/BIOFLAVONOIDS (SIVAN C ORAL) Take 1 capsule by mouth once daily. COMPOUNDED PRESCRIPTION 3.5L of O2 at night and 6L with exertion. multivitamin tablet Take 1 tablet by mouth once daily. No current facility-administered medications for this visit. FAMILY HISTORY Problem Relation Age of Onset Cancer Father BLADDER COPD Mother other (Alcoholic) Mother associated with sepsis. Hypertension Maternal Grandmother Thyroid Maternal Grandmother Social History Tobacco Use Smoking status: Former Current packs/day: 0.00 Average packs/day: 1 pack/day for 38.0 years (38.0 ttl pk-yrs) Types: Cigarettes Start date: 1971 Quit date: 12/20/2008 Years since quittin.3 Smokeless tobacco: Never Tobacco comments: Parents smoked in childhood home. Spouse smokes, not in home. Vaping Use Vaping status: Never Used Substance Use Topics Alcohol use: Yes Alcohol/week: 6.0 - 12.0 standard drinks of alcohol Types: 6 - 12 Cans of Beer (12oz) per week Drug use: No REVIEW OF SYSTEMS See HPI EXAM: PHYSICAL EXAM: Most Recent 04/25/22 - 04/23/25 BP 122/62 04/23/25 14:59 Weight 256 lb 3.2 oz (116.2 kg) 04/23/25 14:59 Height 162.6 cm (5' 4) 01/25/25 11:08 Pulse 129 ! 04/23/25 14:59 Temp 36.9 C (98.4 F) 04/20/25 09:48 Resp 20 04/23/25 14:59 SpO2 92 % 04/23/25 14:59 General Appearance: appears older than stated age, on oxygen, pleasant, able to answer questions appropriately but is forgetful Skin: Skin color is pale , very dry, poor tenting skin turgor chest and arms, generalized red/pink hives extremities and chest/breasts. Lungs: diminished throughout, difficult to hear any in lower bases Heart: Positive findings: tachycardia, irregular rhythm. Extremities: Edema: none in BLE EKG RESULTS: nonspecific ST and T waves changes and atrial flutter with 2:1 AV conduction . Vent rate 129bpm ASSESSMENT/PLAN: 1. Acute confusion - ICD9: 293.0, ICD10: R41.0 (primary diagnosis) 2. Atrial flutter, unspecified type (HCC) - ICD9: 427.32, ICD10: I48.92 -ECG complete -abnormal results requiring further evaluation 3. Tachycardia - ICD9: 785.0, ICD10: R00.0 - ECG COMPLETE -abnormal results requiring futher evaluation 4. Stage 3 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) - ICD9: 496, ICD10: J44.9 -worsening dyspnea 5. Congestive heart failure, unspecified HF chronicity, unspecified heart failure type (HCC) - ICD9: 428.0, ICD10: I50.9 -worsening dyspnea -shows signs of dehydration, taking furosemide once daily 40mg (ordered twice but felt she was getting dehydrated) -possible electrolyte abnormalities or kidney function issues causing confusion as well 6. Hypersomnia - ICD9: 780.54, ICD10: G47.10 7. Hives - ICD9: 708.9, ICD10: L50.9 8. Abnormal pulse oximetry - ICD9: 790.91, ICD10: R79.81 -sp02 dropping into the 70s with movement on oxygen Based on all the above comorbidities, patient ECG results, as well as her presentation/symptoms/assessment , she was sent to [facility] ER for further evaluation. Her daughter was coming to pick her up. Report was called to [facility] ER physician/hospitalist. Discussed treatment plan and patient voices understanding. Patient's questions answered appropriately. Medications and potential side effects were discussed and patient voices understanding. Medical Decision Making: Problems: High: Chronic illness with severe change Risk: High: Decision on hospitalization Medical Decision Making Level: 5 - High Return to the office as scheduled or as needed for worsening/no improvement. Terrie Robledo APRN.CULTURE MANAGER Recording using COM DEV software for draft documentation of the visit was discussed with the patient/authorized life assurance representative; all questions welcomed and answered. Patient/authorized life assurance representative agreed to proceed documented in this encounter [facility] 04-22-2025 Telephone encounter Note Pt was notified of the results. Pt verbalized understanding. Sandra Landis MA [facility] 04-22-2025 Miscellaneous Notes Pt was notified of the results. Pt verbalized understanding. Sandra Landis MA Please contact patient let her know urine culture reveals no UTI. It did reveal mixed bacteria which may drink a contamination during collection. She needs follow-up with PCP to ensure resolution of blood in the urine. She may continue antibiotic as prescribed if it is helping with symptoms. documented in this encounter [facility] 04-22-2025 Telephone encounter Note Please contact patient let her know urine culture reveals no UTI. It did reveal mixed bacteria which may drink a contamination during collection. She needs follow-up with PCP to ensure resolution of blood in the urine. She may continue antibiotic as prescribed if it is helping with symptoms. [facility] Work Phone: 04-20-2025 Note Addended by: BRANDAN CHANG on: 04/20/2025 11:12 AM Modules accepted: Orders [facility] 04-20-2025 Miscellaneous Notes Addended by: BRANDAN CHANG on: 04/20/2025 11:12 AM Modules accepted: Orders documented in this encounter [facility] 04-20-2025 Note HNO ID: [id number] Author: DAMON EUGENE APRN.CULTURE MANAGER Service: ? Author Type: Nurse Practitioner Type: Progress Notes Filed: 04/20/2025 10:23 Note Text: [facility] Subjective Lisa Lucero is a 69 year old female. Patient presents with: Skin Rashes: x 2 days mouth and nose thick mucous x 1 week HPI Increased Nasal and Urinary Mucus: - Chronic nasal mucus production, recently noted to be thicker. - Reports a basty sensation in the mouth. - Observes mucus when wiping after urination. - Denies taking any allergy medications. Confusion: - Onset of fuzzy headedness coincided with initiation of new medications in February, including Eliquis and metoprolol. - Symptoms have progressively worsened. - Has seen Janette Bautista twice, who focused on blood pressure management. Rash: - Noticed a rash in the fold of the back, described as yeasty. - Reports similar rashes on the breasts, questioning if they are hives. COPD: - Mild increase in coughing over the past few days, attributed to thicker mucus. - Denies pain with swallowing. Review of Systems Ears/Nose/Mouth/Throat: (+) nasal congestion, (+) dry mouth, (-) odynophagia Respiratory: (+) cough Genitourinary: (+) urinary mucus, (+) dysuria Skin: (+) intertriginous rash Neurological: (+) confusion Objective BP 132/80 Pulse 94 Temp 36.9 ?C (98.4 ?F) Resp 18 Wt 117 kg (257 lb 15 oz) SpO2 91% BMI 44.27 kg/m? Physical Exam General: No acute distress. HEENT: Ears without abnormalities; oropharynx without erythema or exudate. CV: Heart sounds normal. Resp: Lungs clear to auscultation, no wheezing. Skin: Erythematous rash in intertriginous areas, blanchable. {1. Acute cystitis with hematuria (N30.01) - Urinalysis shows bilirubin, ketones, hematuria, proteinuria, and urobilinogen; possible dehydration due to Lasix use. - Initiated Macrobid BID for 5 days; if urine culture is negative, medication can be discontinued. - Advised to increase fluid intake to prevent dehydration. 2. Candidal intertrigo (B37.2) - Erythematous, blanchable rash observed in the intertriginous area of the back, consistent with candidal intertrigo. - Prescribed Nystatin cream for topical application. 3. Confusion (R41.0) - Onset coincides with initiation of new medications, including Eliquis and metoprolol. - Oxygen saturation initially low, improved to 93% after supplemental oxygen; low oxygen levels may contribute to confusion. - Scheduled an expedited follow-up appointment with primary care this week for further evaluation. and Recording using COM DEV software for draft documentation of the visit was discussed with the patient/authorized life assurance representative; all questions welcomed and answered. Patient/authorized life assurance representative agreed to proceed MDM Procedures [facility] 04-20-2025 History of Presen t illness Narrative [facility] Subjective Lisa Lucero is a 69 year old female. Patient presents with: Skin Rashes: x 2 days mouth and nose thick mucous x 1 week HPI Increased Nasal and Urinary Mucus: - Chronic nasal mucus production, recently noted to be thicker. - Reports a basty sensation in the mouth. - Observes mucus when wiping after urination. - Denies taking any allergy medications. Confusion: - Onset of fuzzy headedness coincided with initiation of new medications in February, including Eliquis and metoprolol. - Symptoms have progressively worsened. - Has seen Janette Bautista twice, who focused on blood pressure management. Rash: - Noticed a rash in the fold of the back, described as yeasty. - Reports similar rashes on the breasts, questioning if they are hives. COPD: - Mild increase in coughing over the past few days, attributed to thicker mucus. - Denies pain with swallowing. Review of Systems Ears/Nose/Mouth/Throat: (+) nasal congestion, (+) dry mouth, (-) odynophagia Respiratory: (+) cough Genitourinary: (+) urinary mucus, (+) dysuria Skin: (+) intertriginous rash Neurological: (+) confusion Objective BP 132/80 Pulse 94 Temp 36.9 C (98.4 F) Resp 18 Wt 117 kg (257 lb 15 oz) SpO2 91% BMI 44.27 kg/m Physical Exam General: No acute distress. HEENT: Ears without abnormalities; oropharynx without erythema or exudate. CV: Heart sounds normal. Resp: Lungs clear to auscultation, no wheezing. Skin: Erythematous rash in intertriginous areas, blanchable. {1. Acute cystitis with hematuria (N30.01) - Urinalysis shows bilirubin, ketones, hematuria, proteinuria, and urobilinogen; possible dehydration due to Lasix use. - Initiated Macrobid BID for 5 days; if urine culture is negative, medication can be discontinued. - Advised to increase fluid intake to prevent dehydration. 2. Candidal intertrigo (B37.2) - Erythematous, blanchable rash observed in the intertriginous area of the back, consistent with candidal intertrigo. - Prescribed Nystatin cream for topical application. 3. Confusion (R41.0) - Onset coincides with initiation of new medications, including Eliquis and metoprolol. - Oxygen saturation initially low, improved to 93% after supplemental oxygen; low oxygen levels may contribute to confusion. - Scheduled an expedited follow-up appointment with primary care this week for further evaluation. and Recording using COM DEV software for draft documentation of the visit was discussed with the patient/authorized life assurance representative; all questions welcomed and answered. Patient/authorized life assurance representative agreed to proceed MDM Procedures documented in this encounter [facility] 03-31-2025 Note HNO ID: [id number] Author: JANETTE DAMON APRN.CNP Service: ? Author Type: Nurse Practitioner Type: Progress Notes Filed: 03/31/2025 13:06 Note Text: 03/31/2025 Patient presents with: BP Check: Had appointment with cardiology yesterday; [facility] Dr. Elena Recording using COM DEV software for draft documentation of the visit was discussed with the patient/authorized life assurance representative; all questions welcomed and answered. Patient/authorized life assurance representative agreed to proceed SUBJECTIVE: This is a 69 year old that is here today for Above Complaints.. Atrial Flutter: - Recent consultation with Dr. Elena, who referred her to Dr. Marcos Santos, an comp field case manager, for potential ablation. - Dr. Elena indicated that the procedure could improve both cardiac function and respiratory status. Hypertension: - Home blood pressure readings have been consistent and well-controlled. - Recent readings include 120/[address] Elena' office and 124/82 mmHg today. - Recently discontinued amlodipine; blood pressure remains stable without it. Sleep Apnea: - Scheduled for a sleep study, but considering cancellation due to previous experience of inadequate sleep during the test and concerns about cost. - Last sleep study showed no occurrences of sleep apnea, but Linwood questions the validity due to limited sleep duration (120 minutes). PAST MEDICAL HISTORY Diagnosis Date Atrial flutter (HCC) CHF (congestive heart failure) (HCC) Chronic hypoxemic respiratory failure (HCC) COPD (chronic obstructive pulmonary disease) (HCC) 02/03/2010 Coronary artery disease No NE, CHF. No heart cath. Diverticulosis of colon (without mention of hemorrhage) Essential hypertension, benign Fibrocystic breast Former smoker Internal hemorrhoids without mention of complication Leiomyoma of uterus, unspecified Obstructive sleep apnea Mild. Not prescribed CPAP, only 2L nasal O2. ALLERGIES Aleve [Naproxen] MEDICATIONS Current Outpatient Medications Medication Sig apixaban (ELIQUIS) 5 mg tab(s) Take 5 mg by mouth two times a day. furosemide (LASIX) 40 mg tablet Take 40 mg by mouth two times a day. metoprolol tartrate, short acting, (LOPRESSOR) 50 mg tablet Take 50 mg by mouth two times a day. potassium chloride ER (KLOR-CON) 20 mEq tablet Take 20 mEq by mouth two times a day. mecobalamin (B12 ACTIVE ORAL) Take 1,000 mcg by mouth once daily. cinnamon bark (CINNAMON ORAL) Take by mouth once daily. albuterol HFA (PROVENTIL HFA, VENTOLIN HFA) 90 mcg/actuation inhaler Inhale 2 Puffs as instructed every 6 hours as needed for wheezing/shortness of breath. hqvmnpvrmrq-xsulzoicl-irhmlcuw (TRELEGY ELLIPTA) 200-62.5-25 mcg inhalation powder Inhale 1 Puff as instructed once daily. triamcinolone acetonide (KENALOG) 0.5 % cream Apply 1 application to affected area two times a day as needed (foot rash, eczema). For rash/itching. Apply sparingly. Avoid face/skin fold. ipratropium-albuterol (DUONEB) 0.5 mg-3 mg(2.5 mg base)/3 mL nebu Inhale 3 mL as instructed four times daily. Inhale via nebulizer over 5-15 minutes. OXYGEN, HOME THERAPY, 3.5L at night and 6L with exertion COMPOUNDED PRESCRIPTION Please dispense nebulizer and supply kit, including tubing, mouth piece, and hose. Assoc diagnosis: J44.9. Dispense: 1 each, Refills: 99. ASCORBIC ACID/BIOFLAVONOIDS (SIVAN C ORAL) Take 1 capsule by mouth once daily. COMPOUNDED PRESCRIPTION 3.5L of O2 at night and 6L with exertion. multivitamin tablet Take 1 tablet by mouth once daily. No current facility-administered medications for this visit. Medications and allergies reviewed by this provider. SOCIAL HISTORY Social History Tobacco Use Smoking status: Former Current packs/day: 0.00 Average packs/day: 1 pack/day for 38.0 years (38.0 ttl pk-yrs) Types: Cigarettes Start date: 1971 Quit date: 12/20/2008 Years since quittin.2 Smokeless tobacco: Never Tobacco comments: Parents smoked in childhood home. Spouse smokes, not in home. Vaping Use Vaping status: Never Used Substance Use Topics Alcohol use: Yes Alcohol/week: 6.0 - 12.0 standard drinks of alcohol Types: 6 - 12 Cans of Beer (12oz) per week Drug use: No REVIEW OF SYSTEMS All other reviewed and negative other than HPI. OBJECTIVE: BP 124/82 Pulse 91 Resp 18 Wt 119.1 kg (262 lb 9.6 oz) SpO2 92% BMI 45.08 kg/m? . Vital signs reviewed by this provider. APPEARANCE Well appearing, alert, in no acute distress, well-hydrated, well nourished. Bone Density Screening Never done BP Controlled (<130/80) due on 01/30/2023 Covid-19 Vaccine( season) due on 06/28/2024 Advance Directive Discussion Never done Depression Screening due on 03/13/2025 Anxiety Screening due on 03/13/2025 DTaP,Tdap,Td Vaccine(3 - Td or Tdap) due on 11/09/2025 Mammogram Screening due on 12/03/2025 Annual PCP Team Chronic Disease Visit due on 03/01/2026 Diabetes Screening du (more content not included)... [facility] 03-31-2025 History of Presen t illness Narrative 03/31/2025 Patient presents with: BP Check: Had appointment with cardiology yesterday; [facility] Dr. Elena Recording using ambient [employer] software for draft documentation of the visit was discussed with the patient/authorized life assurance representative; all questions welcomed and answered. Patient/authorized life assurance representative agreed to proceed SUBJECTIVE: This is a 69 year old that is here today for Above Complaints.. Atrial Flutter: - Recent consultation with Dr. Elena, who referred her to Dr. Marcos Santos, an comp field case manager, for potential ablation. - Dr. Elena indicated that the procedure could improve both cardiac function and respiratory status. Hypertension: - Home blood pressure readings have been consistent and well-controlled. - Recent readings include 120/[address] Elena' office and 124/82 mmHg today. - Recently discontinued amlodipine; blood pressure remains stable without it. Sleep Apnea: - Scheduled for a sleep study, but considering cancellation due to previous experience of inadequate sleep during the test and concerns about cost. - Last sleep study showed no occurrences of sleep apnea, but Linwood questions the validity due to limited sleep duration (120 minutes). PAST MEDICAL HISTORY Diagnosis Date Atrial flutter (HCC) CHF (congestive heart failure) (HCC) Chronic hypoxemic respiratory failure (HCC) COPD (chronic obstructive pulmonary disease) (HCC) 02/03/2010 Coronary artery disease No NE, CHF. No heart cath. Diverticulosis of colon (without mention of hemorrhage) Essential hypertension, benign Fibrocystic breast Former smoker Internal hemorrhoids without mention of complication Leiomyoma of uterus, unspecified Obstructive sleep apnea Mild. Not prescribed CPAP, only 2L nasal O2. ALLERGIES Aleve [Naproxen] MEDICATIONS Current Outpatient Medications Medication Sig apixaban (ELIQUIS) 5 mg tab(s) Take 5 mg by mouth two times a day. furosemide (LASIX) 40 mg tablet Take 40 mg by mouth two times a day. metoprolol tartrate, short acting, (LOPRESSOR) 50 mg tablet Take 50 mg by mouth two times a day. potassium chloride ER (KLOR-CON) 20 mEq tablet Take 20 mEq by mouth two times a day. mecobalamin (B12 ACTIVE ORAL) Take 1,000 mcg by mouth once daily. cinnamon bark (CINNAMON ORAL) Take by mouth once daily. albuterol HFA (PROVENTIL HFA, VENTOLIN HFA) 90 mcg/actuation inhaler Inhale 2 Puffs as instructed every 6 hours as needed for wheezing/shortness of breath. wzpfpncjwmp-fjdxzhkmc-rqottysc (TRELEGY ELLIPTA) 200-62.5-25 mcg inhalation powder Inhale 1 Puff as instructed once daily. triamcinolone acetonide (KENALOG) 0.5 % cream Apply 1 application to affected area two times a day as needed (foot rash, eczema). For rash/itching. Apply sparingly. Avoid face/skin fold. ipratropium-albuterol (DUONEB) 0.5 mg-3 mg(2.5 mg base)/3 mL nebu Inhale 3 mL as instructed four times daily. Inhale via nebulizer over 5-15 minutes. OXYGEN, HOME THERAPY, 3.5L at night and 6L with exertion COMPOUNDED PRESCRIPTION Please dispense nebulizer and supply kit, including tubing, mouth piece, and hose. Assoc diagnosis: J44.9. Dispense: 1 each, Refills: 99. ASCORBIC ACID/BIOFLAVONOIDS (SIVAN C ORAL) Take 1 capsule by mouth once daily. COMPOUNDED PRESCRIPTION 3.5L of O2 at night and 6L with exertion. multivitamin tablet Take 1 tablet by mouth once daily. No current facility-administered medications for this visit. Medications and allergies reviewed by this provider. SOCIAL HISTORY Social History Tobacco Use Smoking status: Former Current packs/day: 0.00 Average packs/day: 1 pack/day for 38.0 years (38.0 ttl pk-yrs) Types: Cigarettes Start date: 1971 Quit date: 12/20/2008 Years since quittin.2 Smokeless tobacco: Never Tobacco comments: Parents smoked in childhood home. Spouse smokes, not in home. Vaping Use Vaping status: Never Used Substance Use Topics Alcohol use: Yes Alcohol/week: 6.0 - 12.0 standard drinks of alcohol Types: 6 - 12 Cans of Beer (12oz) per week Drug use: No REVIEW OF SYSTEMS All other reviewed and negative other than HPI. OBJECTIVE: BP 124/82 Pulse 91 Resp 18 Wt 119.1 kg (262 lb 9.6 oz) SpO2 92% BMI 45.08 kg/m . Vital signs reviewed by this provider. APPEARANCE Well appearing, alert, in no acute distress, well-hydrated, well nourished. Bone Density Screening Never done BP Controlled (<130/80) due on 01/30/2023 Covid-19 Vaccine() due on 06/28/2024 Advance Directive Discussion Never done Depression Screening due on 03/13/2025 Anxiety Screening due on 03/13/2025 DTaP,Tdap,Td Vaccine(3 - Td or Tdap) due on 11/09/2025 Mammogram Screening due on 12/03/2025 Annual PCP Team Chronic Disease Visit due on 03/01/2026 Diabetes Screening due on 01/14/2028 Colorectal Cancer Screening due on 09/10/2028 Lipid Screening due on 01/13/2030 Influenza Vaccine Completed RSV Vaccine Completed Hepatitis C Screening Completed Shingrix Vaccine Completed Pneumococcal Vaccine: 50+ Completed Cervical Cancer Screening Discontinued 1. Essential (primary) hypertension (I10) - Blood pressure readings are stable, consistently in the 120s/80s range. - Discontinued amlodipine; removed from medication list. - Continue current antihypertensive regimen as prescribed by Dr. Elena. - Follow-up with Dr. Martines in June. 2. Atrial flutter, unspecified type (HCC) (I48.92) - Referral to Dr. Marcos Santos, comp field case manager, for potential ablation procedure. - Patient understands the procedure may improve cardiac function and respiratory status. - Upcoming sleep test ordered by Pulmonology; patient considering cancellation due to previous experience and cost concerns. Advised to inform Pulmonology if decision to cancel is made. - Follow-up with Pulmonology scheduled in [employer] Prescription instructions reviewed with patient as applicable. Patient advised if symptoms do not improve or if symptoms worsen sooner, to contact their primary care physician. Potential red flag symptoms discussed with the patient. Reviewed appropriate action plan to take if red flag symptoms occur. Patient agreeable to treatment plan. Medical Decision Making: Problems: Low: Stable chronic illness Risk: Moderate: Moderate risk from testing/treatment Medical Decision Making Level: 3 - Low documented in this encounter [facility] 03-10-2025 Instructions Lisa Goodman APRN.CNP - 03/10/2025 1:34 PM EDT [phone] [facility] sleep disorders, [place]. documented in this encounter [facility] 03-10-2025 History of Presen t illness Narrative Images from the original note were not included. Pulmonary Medicine Patients name: Lisa Palumbo PCP: Phuc Martines DO CC: concern for ROXY HPI: Lisa Lucero is a 69 year old female former [id number] smoker, quitting in 2008 with PMH significant for morbid obesity, severe COPD, chronic hypoxemic respiratory failure, CAD, HTN, and ROXY. Current therapy consists of Trelegy Ellipta with as needed albuterol/Duoneb. On supplemental O2. She presents today d/t concerns for ROXY while hospitalized. ABRAHAM 11/2024 with worsening exertional dyspnea. Had been wearing 3.5L O2 with exertion despite previous testing showing need for 6L. Trelegy dose was increased at that time. She was just hospitalized at [facility] 02/19 - 02/23 for SOB/leg swelling in the setting of Aflutter. Worsening hypoxia from baseline. CTA negative for PE. Echo with EF 40-50%. She was able to be weaned back to baseline O2 by discharge. Seen by primary care following discharge on 03/01, concern for ROXY d/t her weight. She reports she had PSG years ago but did not sleep more than 2 hours during testing. Reportedly, there were no apnea events during the recorded time. Overall, she reports today that shortness of breath has improved. She believes the increase in her Trelegy dose was helpful but improved more following her hospitalization and being on diuretics. Denies cough, wheezing, or chest tightness. Uses Albuterol/Duoneb few days a week. DME: Bruce 3.5 L at rest/nocturnal and 6L with activity STOP BANG Questionnaire 1. Snoring Do you snore loudly (louder than talking or loud enough to be heard through closed doors)? NO 2. Tired Do you often feel tired, fatigued, or sleepy during daytime? YES 3. Observed Has anyone observed you stop breathing during your sleep? NO 4. Blood Pressure Do you have or are you being treated for high blood pressure? YES 5. BMI BMI more than 35 kg/m2? YES 6. Age Age over 50 yr old? YES 7. Neck circumference Neck circumference greater than 40 cm? NO 8. Gender Gender male? NO * Neck circumference is measured by staff High risk of ROXY: answering yes to three or more items Low risk of ROXY: answering yes to less than three items PAST MEDICAL HISTORY Diagnosis Date Atrial flutter (HCC) CHF (congestive heart failure) (HCC) Chronic hypoxemic respiratory failure (HCC) COPD (chronic obstructive pulmonary disease) (HCC) 02/03/2010 Coronary artery disease No NE, CHF. No heart cath. Diverticulosis of colon (without mention of hemorrhage) Essential hypertension, benign Fibrocystic breast Former smoker Internal hemorrhoids without mention of complication Leiomyoma of uterus, unspecified Obstructive sleep apnea Mild. Not prescribed CPAP, only 2L nasal O2. Allergies: Aleve [Naproxen] Hives Comment:Hives, edema of hands within 1 hour of use Medication List Accurate as of March 09, 2025 8:56 PM. If you have any questions, ask your nurse or doctor. CONTINUE taking these medications albuterol HFA 90 mcg/actuation inhaler Commonly known as: PROVENTIL HFA, VENTOLIN HFA Inhale 2 Puffs as instructed every 6 hours as needed for wheezing/shortness of breath. amLODIPine 10 mg tablet Commonly known as: NORVASC Take 1 tablet by mouth once daily. apixaban 5 mg tab(s) Commonly known as: ELIQUIS B12 ACTIVE ORAL CINNAMON ORAL COMPOUNDED PRESCRIPTION COMPOUNDED PRESCRIPTION Please dispense nebulizer and supply kit, including tubing, mouth piece, and hose. Assoc diagnosis: J44.9. Dispense: 1 each, Refills: 99. SIVAN C ORAL furosemide 40 mg tablet Commonly known as: LASIX ipratropium-albuterol 0.5 mg-3 mg(2.5 mg base)/3 mL Nebu Commonly known as: DUONEB Inhale 3 mL as instructed four times daily. Inhale via nebulizer over 5-15 minutes. metoprolol tartrate (short acting) 50 mg tablet Commonly known as: LOPRESSOR multivitamin tablet OXYGEN (HOME THERAPY) 3.5L at night and 6L with exertion potassium chloride ER 20 mEq tablet Commonly known as: KLOR-CON TRELEGY ELLIPTA 200-62.5-25 mcg inhalation powder Generic drug: jgfjnhptidx-ibwgayjjx-kiyglkxa Inhale 1 Puff as instructed once daily. triamcinolone acetonide 0.5 % cream Commonly known as: KeNALog Apply 1 application to affected area two times a day as needed (foot rash, eczema). For rash/itching. Apply sparingly. Avoid face/skin fold. DATA: I personally reviewed and analyzed all labs, radiographs and available pulmonary function testing PFT: 02/2022 Spirometry indicates very severe obstruction. CT Chest: 01/25/25 IMPRESSION: LungRADS category: 3 LungRADS modifier: None LungRADS 0 reason: n/a Recommendations: Followup LDCT in 6 months Reference: [employer]. Lung CT Screening Reporting and Data System (Lung-RADS). Available at: http://www.acr.org/Quality-Safet y/Resources/LungRADS Personal Lines Account Manager: PAT Transcribe Date/Time: Jan 25 2025 11:45A Dictated by : VIDAL PULLIAM MD This examination was interpreted and the report reviewed and electronically signed by: VIDAL PULLIAM MD on Jan 25 2025 11:51AM EST Results-Findings * * *Final Report* * * DATE OF EXAM: Jan 25 2025 11:06AM [facility] [id number] - CT LUNG FOLLOWUP [facility] / PROCEDURE REASON: Lung nodule, < 6mm, high cancer risk * * * * Physician Interpretation * * * * [facility]AMIN[facility]: Lung nodules Technique: Spiral CT acquisition of the chest from the thoracic inlet to the upper abdomen without contrast. MQ: [id number] Followup LDCT Patient characteristics: * Ziox-ge-Awvfh: 1955; Age at exam: 69 years * Gender: Female * Lung Disease: Asymptomatic (no signs or symptoms of lung disease) * Number of Pack Years: 38 * Current smoker (=0) or Number of Years since Quit: 15 * Ordering provider and NPI: MARICRUZ CAMP [id number] * Interpreting radiologist and NPI: Nicole [id number] Exam acquisition parameters: * Exam Date: 01/25/2025 11:06 AM * Site: [facility] * * CT System Ms Sql Server Developer: Siemens * CT System Model: Sensation * Tube Current-Time (mA-sec): 48 * Peak Voltage (kV): 120V * Scan Time (sec): 11.79 * Scan Volume (z-length, cm): -31.56 * Pitch: 0.75 * Slice Thickness (mm): 1.5 * CT Dose-Length Product: 148 mGy*cm * CT Dose Index: 3.73mGy * CT Dose Reduction Method: Automated exposure control(AEC) and iterative recon COMPARISON: Prior lung screen dated 10/19/2024 RESULT: Are nodules present? Yes, 1-5 nodules Lung nodule comments: 11 mm right apical nodule (41) unchanged. 6 mm subpleural right lower lobe nodule (190) unchanged. 12 mm left upper lobe anterior nodule (146) unchanged. Previously seen 8 mm left upper lobe nodule and surrounding ill-defined nodular opacities have disappeared. Previously seen nodular consolidation in the right middle lobe has mostly disappeared with minimal residual inferior scarlike opacity (217) unchanged. Other findings: Mild coronary calcifications. Mild degenerative changes of the thoracic spine. Diffuse bronchial thickening, severe upper lobe predominant emphysema, mosaic attenuation from chronic small airway inflammation, and scattered lower linear opacities likely atelectasis. Review of Systems Constitutional: Negative for activity change, appetite change and unexpected weight change. HENT: Negative for congestion, mouth sores and postnasal drip. Respiratory: Positive for shortness of breath. Negative for cough, chest tightness and wheezing. Cardiovascular: Positive for leg swelling (intermittent). Negative for chest pain and palpitations. Allergic/Immunologic: Negative for environmental allergies. Neurological: Negative for weakness and headaches. BP (P) 142/78 Pulse (P) 81 Resp (P) 16 SpO2 (P) 93% Physical Exam Vitals reviewed. Constitutional: General: She is not in acute distress. Appearance: Normal appearance. She is not ill-appearing. HENT: Head: Normocephalic. Nose: No rhinorrhea. Cardiovascular: Rate and Rhythm: Normal rate and regular rhythm. Heart sounds: Normal heart sounds. Pulmonary: Effort: Pulmonary effort is normal. No respiratory distress. Breath sounds: No wheezing or rhonchi. Musculoskeletal: Right lower leg: Edema present. Left lower leg: Edema present. Comments: 1-2+ LE edema Skin: General: Skin is warm and dry. Capillary Refill: Capillary refill takes less than 2 seconds. Neurological: General: No focal deficit present. Mental Status: She is alert. ASSESSMENT/PLAN: 1. Daytime sleepiness - ICD9: 780.54, ICD10: R40.0 (primary diagnosis) - concern for ROXY during recent hospitalization. Had previous sleep study years but only slept 2 hours. Has reservations about repeating study. STOPBANG with high risk for ROXY. Had discussion with patient and agreeable to retest. Will need to wear supplemental O2 during testing. - POLYSOMNOGRAM (PSG) 2. Stage 3 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) - ICD9: 496, ICD10: J44.9 - improved symptoms with increase in Trelegy. - Continue with Trelegy and PRN Albuterol/Duoneb. 3. Chronic respiratory failure with hypoxia (HCC) - ICD9: 518.83, 799.02, ICD10: J96.11 - continues to be compliant and benefit from supplemental O2 F/u scheduled in May Portions of this documentation were copied and pasted from previous office visit notes in order to provide a cohesive continuity of the history. The note has been reviewed and edited and updated as necessary. Lisa Goodman APRN.CNP I spent a total of 25 minutes on the date of the service which included preparing to see the patient, wjgd-ni-wddy patient care, completing clinical documentation, performing a medically appropriate examination, counseling and educating the patient/family/caregiver, and ordering medications, tests, or procedures. documented in this encounter [facility] 03-10-2025 Note HNO ID: [id number] Author: LISA GOODMAN APRN.CNP Service: ? Author Type: Nurse Practitioner Type: Progress Notes Filed: 03/10/2025 13:47 Note Text: Pulmonary Medicine Patients name: Lisa Palumbo PCP: Phuc Martines DO CC: concern for ROXY HPI: Lisa Lucero is a 69 year old female former [id number]-vxog smoker, quitting in 2008 with PMH significant for morbid obesity, severe COPD, chronic hypoxemic respiratory failure, CAD, HTN, and ROXY. Current therapy consists of Trelegy Ellipta with as needed albuterol/Duoneb. On supplemental O2. She presents today d/t concerns for ROXY while hospitalized. ABRAHAM 11/2024 with worsening exertional dyspnea. Had been wearing 3.5L O2 with exertion despite previous testing showing need for 6L. Trelegy dose was increased at that time. She was just hospitalized at [facility] 02/19 - 02/23 for SOB/leg swelling in the setting of Aflutter. Worsening hypoxia from baseline. CTA negative for PE. Echo with EF 40-50%. She was able to be weaned back to baseline O2 by discharge. Seen by primary care following discharge on 03/01, concern for ROXY d/t her weight. She reports she had PSG years ago but did not sleep more than 2 hours during testing. Reportedly, there were no apnea events during the recorded time. Overall, she reports today that shortness of breath has improved. She believes the increase in her Trelegy dose was helpful but improved more following her hospitalization and being on diuretics. Denies cough, wheezing, or chest tightness. Uses Albuterol/Duoneb few days a week. DME: Bruce 3.5 L at rest/nocturnal and 6L with activity STOP BANG Questionnaire 1. Snoring Do you snore loudly (louder than talking or loud enough to be heard through closed doors)? NO 2. Tired Do you often feel tired, fatigued, or sleepy during daytime? YES 3. Observed Has anyone observed you stop breathing during your sleep? NO 4. Blood Pressure Do you have or are you being treated for high blood pressure? YES 5. BMI BMI more than 35 kg/m2? YES 6. Age Age over 50 yr old? YES 7. Neck circumference Neck circumference greater than 40 cm? NO 8. Gender Gender male? NO * Neck circumference is measured by staff High risk of ROXY: answering yes to three or more items Low risk of ROXY: answering yes to less than three items PAST MEDICAL HISTORY Diagnosis Date Atrial flutter (HCC) CHF (congestive heart failure) (HCC) Chronic hypoxemic respiratory failure (HCC) COPD (chronic obstructive pulmonary disease) ([facility]) 02/03/2010 Coronary artery disease No NE, CHF. No heart cath. Diverticulosis of colon (without mention of hemorrhage) Essential hypertension, benign Fibrocystic breast Former smoker Internal hemorrhoids without mention of complication Leiomyoma of uterus, unspecified Obstructive sleep apnea Mild. Not prescribed CPAP, only 2L nasal O2. Allergies: Aleve [Naproxen] Hives Comment:Hives, edema of hands within 1 hour of use Medication List Accurate as of March 09, 2025 8:56 PM. If you have any questions, ask your nurse or doctor. CONTINUE taking these medications albuterol HFA 90 mcg/actuation inhaler Commonly known as: PROVENTIL HFA, VENTOLIN HFA Inhale 2 Puffs as instructed every 6 hours as needed for wheezing/shortness of breath. amLODIPine 10 mg tablet Commonly known as: NORVASC Take 1 tablet by mouth once daily. apixaban 5 mg tab(s) Commonly known as: ELIQUIS B12 ACTIVE ORAL CINNAMON ORAL COMPOUNDED PRESCRIPTION COMPOUNDED PRESCRIPTION Please dispense nebulizer and supply kit, including tubing, mouth piece, and hose. Assoc diagnosis: J44.9. Dispense: 1 each, Refills: 99. SIVAN C ORAL furosemide 40 mg tablet Commonly known as: LASIX ipratropium-albuterol 0.5 mg-3 mg(2.5 mg base)/3 mL Nebu Commonly known as: DUONEB Inhale 3 mL as instructed four times daily. Inhale via nebulizer over 5-15 minutes. metoprolol tartrate (short acting) 50 mg tablet Commonly known as: LOPRESSOR multivitamin tablet OXYGEN (HOME THERAPY) 3.5L at night and 6L with exertion potassium chloride ER 20 mEq tablet Commonly known as: KLOR-CON TRELEGY ELLIPTA 200-62.5-25 mcg inhalation powder Generic drug: xvjvpvvwxrl-qtpfafxgq-fgewcbhw Inhale 1 Puff as instructed once daily. triamcinolone acetonide 0.5 % cream Commonly known as: KeNALog Apply 1 application to affected area two times a day as needed (foot rash, eczema). For rash/itching. Apply sparingly. Avoid face/skin fold. DATA: I personally reviewed and analyzed all labs, radiographs and available pulmonary function testing PFT: 02/2022 Spirometry indicates very severe obstruction. CT Chest: 01/25/25 IMPRESSION: LungRADS category: 3 LungRADS modifier: None LungRADS 0 reason: n/a Recommendations: Followup LDCT in 6 months Reference: French (more content not included)... [facility] 03-01-2025 Instructions Janette Damon APRN.ELVIA - 03/01/2025 12:45 PM EDT Follow-up with pulmonology and discuss possible sleep apnea Make follow-up with cardiology Hold Amlodipine for now documented in this encounter [facility] 03-01-2025 History of Presen t illness Narrative 02/26/2025 Patient presents with: Hospital F/U: [facility] COPD SUBJECTIVE: This is a 69 year old that is here today for Above Complaints. HOSPITAL/ER FOLLOW UP: Reason for visit: SOB, and leg swelling Which facility: [facility] Date of visit: 02/19/2025-02/23/2025 Diagnosis: COPD, atrial flutter and hypoxia Testing done: CXR, EKG, ECHO, CTA lungs Treatment given: breathing treatments, oxygen Doing well since discharge.Per patient she has not been taking her amlodipine. Per patient she was feeling pretty lethargic and that's why she stopped the amlodipine . She has been taking her BP at home with ranges of 122-140/65-82. Does not have follow-up with cardiology as yet. Was wanting to stay within [facility] system. Denies dyspnea, orthopnea wheezing, chest pain, palpitations or leg swelling. Follows with [facility]. Last appointment on 12/25/2024. Uses 3/4L/NC at rest and 6 L/NC with exertion. She feels her breathing as at her baseline. ER records reviewed PAST MEDICAL HISTORY Diagnosis Date Chronic hypoxemic respiratory failure (HCC) COPD (chronic obstructive pulmonary disease) (HCC) 02/03/2010 Coronary artery disease No NE, CHF. No heart cath. Diverticulosis of colon (without mention of hemorrhage) Essential hypertension, benign Fibrocystic breast Former smoker Internal hemorrhoids without mention of complication Leiomyoma of uterus, unspecified Obstructive sleep apnea Mild. Not prescribed CPAP, only 2L nasal O2. ALLERGIES Aleve [Naproxen] MEDICATIONS Current Outpatient Medications Medication Sig albuterol HFA (PROVENTIL HFA, VENTOLIN HFA) 90 mcg/actuation inhaler Inhale 2 Puffs as instructed every 6 hours as needed for wheezing/shortness of breath. dlvmjmgxzdi-nduvdwjso-rucbjuvj (TRELEGY ELLIPTA) 200-62.5-25 mcg inhalation powder Inhale 1 Puff as instructed once daily. triamterene-hydroCHLOROthiazide (DYAZIDE) 37.5-25 mg per capsule Take 1 capsule by mouth once daily. amLODIPine (NORVASC) 10 mg tablet Take 1 tablet by mouth once daily. triamcinolone acetonide (KENALOG) 0.5 % cream Apply 1 application to affected area two times a day as needed (foot rash, eczema). For rash/itching. Apply sparingly. Avoid face/skin fold. ipratropium-albuterol (DUONEB) 0.5 mg-3 mg(2.5 mg base)/3 mL nebu Inhale 3 mL as instructed four times daily. Inhale via nebulizer over 5-15 minutes. OXYGEN, HOME THERAPY, 3.5L at night and 6L with exertion COMPOUNDED PRESCRIPTION Please dispense nebulizer and supply kit, including tubing, mouth piece, and hose. Assoc diagnosis: J44.9. Dispense: 1 each, Refills: 99. ASCORBIC ACID/BIOFLAVONOIDS (SIVAN C ORAL) Take 1 capsule by mouth once daily. COMPOUNDED PRESCRIPTION 3.5L of O2 at night and 6L with exertion. multivitamin tablet Take 1 tablet by mouth once daily. No current facility-administered medications for this visit. Medications and allergies reviewed by this provider. SOCIAL HISTORY Social History Tobacco Use Smoking status: Former Current packs/day: 0.00 Average packs/day: 1 pack/day for 38.0 years (38.0 ttl pk-yrs) Types: Cigarettes Start date: 1971 Quit date: 12/20/2008 Years since quittin.1 Smokeless tobacco: Never Tobacco comments: Parents smoked in childhood home. Spouse smokes, not in home. Vaping Use Vaping status: Never Used Substance Use Topics Alcohol use: Yes Alcohol/week: 6.0 - 12.0 standard drinks of alcohol Types: 6 - 12 Cans of Beer (12oz) per week Drug use: No REVIEW OF SYSTEMS All other reviewed and negative other than HPI. OBJECTIVE: BP 116/70 Pulse 76 Resp 18 Wt 118.9 kg (262 lb 3.2 oz) SpO2 90% BMI 45.01 kg/m . Vital signs reviewed by this provider. APPEARANCE Well appearing, alert, in no acute distress, well-hydrated, well nourished. EYES PERRLA, conjunctiva and sclera normal. HEART RRR with normal S1 and S2, no murmurs, no gallops, no JVD appreciated LUNG Diminished throughout. No wheezes, rhonchi or rales. O2 intact via nasal cannula. Able to speak in full sentences without difficulty EXTREMITIES Extremities normal, No deformities, No skin discoloration, No edema, and Normal pulses bilaterally. SKIN Skin color, texture, turgor normal, no suspicious rashes or lesions to exposed skin Bone Density Screening Never done Covid-19 Vaccine( season) due on 06/28/2024 Advance Directive Discussion Never done Depression Screening due on 03/13/2025 Anxiety Screening due on 03/13/2025 DTaP,Tdap,Td Vaccine(3 - Td or Tdap) due on 11/09/2025 Mammogram Screening due on 12/03/2025 Annual PCP Team Chronic Disease Visit due on 03/01/2026 BP Controlled (<130/80) due on 03/01/2026 Diabetes Screening due on 01/14/2028 Colorectal Cancer Screening due on 09/10/2028 Lipid Screening due on 01/13/2030 Influenza Vaccine Completed RSV Vaccine Completed Hepatitis C Screening Completed Shingrix Vaccine Completed Pneumococcal Vaccine: 50+ Completed Cervical Cancer Screening Discontinued ASSESSMENT/PLAN: 1. Hospital discharge follow-up - ICD9: V67.59, ICD10: Z09 (primary diagnosis) - plan as below 2. Atrial flutter, unspecified type (HCC) - ICD9: 427.32, ICD10: I48.92 - she follow-up with [facility] cardiology if unable to get appointment with [facility] - CONSULT TO CARDIOLOGY - continue Eliquis and Metoprolol 3. Congestive heart failure, unspecified HF chronicity, unspecified heart failure type (HCC) - ICD9: 428.0, ICD10: I50.9 - continue lasix and potassium supplement - CONSULT TO CARDIOLOGY 4. Stage 3 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) - ICD9: 496, ICD10: J44.9 - stable - follow-up with pulmonology 5. Oxygen dependent - ICD9: V46.2, ICD10: Z99.81 - continue oxygen - follow-up with pulmonology 6. Essential hypertension - ICD9: 401.9, ICD10: I10 - Controlled- may hold amlodipine for now- she should take hr BP daily at home and bring her home cuff to next appointment - Recommend home blood pressure monitoring, to bring results to next visit - Encouraged sodium restriction, DASH or Mediterranean diet - Recommend regular aerobic exercise - Discussed need for and benefit of weight loss. BMI 45.01 kg/(m^2) - Follow up in 4 weeks for hypertension visit Janette Damon APRN.CULTURE MANAGER Prescription instructions reviewed with patient as applicable. Patient advised if symptoms do not improve or if symptoms worsen sooner, to contact their primary care physician. Potential red flag symptoms discussed with the patient. Reviewed appropriate action plan to take if red flag symptoms occur. Patient agreeable to treatment plan. I spent a total of 30 minutes on the date of the service which included preparing to see the patient, [id number] patient care, completing clinical documentation, obtaining and/or reviewing separately obtained history, performing a medically appropriate examination, counseling and educating the patient/family/caregiver, and ordering medications, tests, or procedures. documented in this encounter [facility] 03-01-2025 Note HNO ID: [id number] Author: JANETTE DAMON APRN.ELVIA Service: ? Author Type: Nurse Practitioner Type: Progress Notes Filed: 03/01/2025 14:15 Note Text: 02/26/2025 Patient presents with: Hospital F/U: [facility] COPD SUBJECTIVE: This is a 69 year old that is here today for Above Complaints. HOSPITAL/ER FOLLOW UP: Reason for visit: SOB, and leg swelling Which facility: [facility] Date of visit: 02/19/2025-02/23/2025 Diagnosis: COPD, atrial flutter and hypoxia Testing done: CXR, EKG, ECHO, CTA lungs Treatment given: breathing treatments, oxygen Doing well since discharge.Per patient she has not been taking her amlodipine. Per patient she was feeling pretty lethargic and that's why she stopped the amlodipine . She has been taking her BP at home with ranges of 122-140/65-82. Does not have follow-up with cardiology as yet. Was wanting to stay within [facility] system. Denies dyspnea, orthopnea wheezing, chest pain, palpitations or leg swelling. Follows with [facility]. Last appointment on 12/25/2024. Uses 3/4L/NC at rest and 6 L/NC with exertion. She feels her breathing as at her baseline. ER records reviewed PAST MEDICAL HISTORY Diagnosis Date Chronic hypoxemic respiratory failure (HCC) COPD (chronic obstructive pulmonary disease) (HCC) 02/03/2010 Coronary artery disease No NE, CHF. No heart cath. Diverticulosis of colon (without mention of hemorrhage) Essential hypertension, benign Fibrocystic breast Former smoker Internal hemorrhoids without mention of complication Leiomyoma of uterus, unspecified Obstructive sleep apnea Mild. Not prescribed CPAP, only 2L nasal O2. ALLERGIES Aleve [Naproxen] MEDICATIONS Current Outpatient Medications Medication Sig albuterol HFA (PROVENTIL HFA, VENTOLIN HFA) 90 mcg/actuation inhaler Inhale 2 Puffs as instructed every 6 hours as needed for wheezing/shortness of breath. vjlsovnxwcz-tjlmqomgy-kgykzqfw (TRELEGY ELLIPTA) 200-62.5-25 mcg inhalation powder Inhale 1 Puff as instructed once daily. triamterene-hydroCHLOROthiazide (DYAZIDE) 37.5-25 mg per capsule Take 1 capsule by mouth once daily. amLODIPine (NORVASC) 10 mg tablet Take 1 tablet by mouth once daily. triamcinolone acetonide (KENALOG) 0.5 % cream Apply 1 application to affected area two times a day as needed (foot rash, eczema). For rash/itching. Apply sparingly. Avoid face/skin fold. ipratropium-albuterol (DUONEB) 0.5 mg-3 mg(2.5 mg base)/3 mL nebu Inhale 3 mL as instructed four times daily. Inhale via nebulizer over 5-15 minutes. OXYGEN, HOME THERAPY, 3.5L at night and 6L with exertion COMPOUNDED PRESCRIPTION Please dispense nebulizer and supply kit, including tubing, mouth piece, and hose. Assoc diagnosis: J44.9. Dispense: 1 each, Refills: 99. ASCORBIC ACID/BIOFLAVONOIDS (SIVAN C ORAL) Take 1 capsule by mouth once daily. COMPOUNDED PRESCRIPTION 3.5L of O2 at night and 6L with exertion. multivitamin tablet Take 1 tablet by mouth once daily. No current facility-administered medications for this visit. Medications and allergies reviewed by this provider. SOCIAL HISTORY Social History Tobacco Use Smoking status: Former Current packs/day: 0.00 Average packs/day: 1 pack/day for 38.0 years (38.0 ttl pk-yrs) Types: Cigarettes Start date: 1971 Quit date: 12/20/2008 Years since quittin.1 Smokeless tobacco: Never Tobacco comments: Parents smoked in childhood home. Spouse smokes, not in home. Vaping Use Vaping status: Never Used Substance Use Topics Alcohol use: Yes Alcohol/week: 6.0 - 12.0 standard drinks of alcohol Types: 6 - 12 Cans of Beer (12oz) per week Drug use: No REVIEW OF SYSTEMS All other reviewed and negative other than HPI. OBJECTIVE: BP 116/70 Pulse 76 Resp 18 Wt 118.9 kg (262 lb 3.2 oz) SpO2 90% BMI 45.01 kg/m? . Vital signs reviewed by this provider. APPEARANCE Well appearing, alert, in no acute distress, well-hydrated, well nourished. EYES PERRLA, conjunctiva and sclera normal. HEART RRR with normal S1 and S2, no murmurs, no gallops, no JVD appreciated LUNG Diminished throughout. No wheezes, rhonchi or rales. O2 intact via nasal cannula. Able to speak in full sentences without difficulty EXTREMITIES Extremities normal, No deformities, No skin discoloration, No edema, and Normal pulses bilaterally. SKIN Skin color, texture, turgor normal, no suspicious rashes or lesions to exposed skin Bone Density Screening Never done Covid-19 Vaccine() due on 06/28/2024 Advance Directive Discussion Never done Depression Screening due on 03/13/2025 Anxiety Screening due on 03/13/2025 DTaP,Tdap,Td Vaccine(3 - Td or Tdap) due on 11/09/2025 Mammogram Screening due on 12/03/2025 Annual PCP Team Chronic Disease Visit due on 03/01/2026 BP Controlled (<130/80) due on 03/01/2026 Diabetes Screening due on 01/14/2028 Colorectal Cancer Screening due on 09/10/2028 Lipid Screening due on 01/13/2030 In (more content not included)... [facility] 02-23-2025 Discharge summary Note Date/Time February 23, 2025 1:22pm [facility] Medical Records Department [address] [place] [address] Instructions for Home/Discharge Instructions 02/23/25 1320 MR#: [id number] Acct: [id number] Name: LISA LUCERO Rep #:[id number] : 1955 69 From: Yee Jones MD PCP: Dr. Phuc Martines, DO Status:AD M IN Discharge Instructions Diet Discharge Diet: Low fat / Low cholesterol DC O2, CPAP, BIPAP needs Home O2 Discharge instructions: Yes Type of respiratory needs?: Oxygen Oxygen frequency: At rest (3.5) and With Ambulation Oxygen liters per minute during Ambulation: 6 Dressing / Incision Discharge Activity: Return to Normal Activity Weight Bearing Status: Weight bearing as tolerated Dressing / Incision Call your doctor if you observe: Fever of 101 or Higher, Shortness of breath, Dizziness, Swelling in the ankles and Chest pain Follow Up Care Test Results: Test results from this visit will be discussed in further detail at your follow-up appointment, if applicable. Discharge Plan Admission Admit Date/Time: 02/19/25 15:53 Primary Reason for Your Visit: acute exacerbation of heart failure Attending Provider: Yee Jones Primary Care Provider: Phuc Martines Consulting Providers: Kym Norton; Claudia Valerio Instructions Patient Instructions: Coping with Heart Failure Discharge Orders/Prescriptions Prescriptions: New metoprolol tartrate 50 mg Tablet 50 mg PO BID Qty: 60 2RF furosemide 40 mg tablet 40 mg PO BID Qty: 60 2RF potassium chloride [Klor-Con M20] 20 mEq tablet,ER particles/crystals 20 meq PO BID Qty: 60 2RF Eliquis 5 mg Tablet 5 mg PO BID Qty: 60 2RF Continued ascorbic acid (vitamin C) 500 MG capsule 500 mg PO DAILY Oxygen, Home [Home Oxygen] 2 - 4 lpm NASAL QHS albuterol sulfate 90 mcg/actuation aerosol powdr breath activated 2 inh inhalation Q6H PRN (Reason: shortness of breath) amlodipine 10 mg tablet 10 mg PO DAILY Trelegy Ellipta 200-62.5-25 mcg blister with device 1 ea inhalation DAILY triamcinolone acetonide 0.5 % cream 1 applic topical BID PRN (Reason: itching) ipratropium-albuterol 0.5 mg-3 mg(2.5 mg base)/3 mL solution for nebulization 3 ml inhalation Q6H PRN (Reason: shortness of breath) multivitamin [Daily Multi-Vitamin] Tablet 1 tab PO DAILY Oxford Saline 0.65 % aerosol,spray 1 spray intranasal BID PRN (Reason: dry nasal passages) guaifenesin [Mucus Relief ER] 1,200 MG tablet 1,200 mg PO BID PRN (Reason: cough) Discontinued triamterene-hydrochlorothiazid 37.5-25 mg capsule 1 cap PO DAILY Patient Comments: PT TAKES IN AFTERNOON Referrals / Follow Up: Piyush Peterson MD [Med Staff - Active Staff] - Within 2 Weeks (see to establish care for afib and heart failure) Phuc Martines DO [Primary Care Provider] - Within 1 Week Disposition Disposition (needs filled in before D/C Order can be placed): Home, Self Care 02/23/25 1322<Electronically signed by Yee Jones MD>Yee Jones MD CC: Dr. Phuc Martines DO; Dr. Claudia Valerio DO; Dr. Kym Norton MD ~ Signed [facility] Work Phone: [phone] Discharge summary Author [facility] Note Date/Time February 23, 2025 2:4 9pm [facility] Medical Records Department [address] [place] [id number] Discharge Summary 02/23/25 1322 MR#: [id number] Acct: [id number] Name: LISA LUCERO Rep #:[id number] : 1955 69 From: Yee Jones MD PCP: Dr. Phuc Martines DO Status:AD M IN Location: [id number] Providers Date of Admission: 02/19/25 Date of Discharge: 02/23/25 Primary Care Physician: Dr. Phuc Martines DO Reason For Visit: HYPOXIA Diagnosis Discharge Diagnosis (1) Atrial flutter: Status: Acute Code(s): I48.92 - Unspecified atrial flutter (2) Dyspnea on exertion: Status: Acute Code(s): R06.09 - Other forms of dyspnea (3) Acute on chronic hypoxic respiratory failure: Status: Chronic Code(s): J96.21 - Acute and chronic respiratory failure with hypoxia Plan #Acute on chronic hypoxic respiratory failure due to acute combined heart failure * Usual was 3.5 L of oxygen at rest and 6 L with exertion. Currently requiring 4 L at rest and 10 L with exertion. She required 8 L today as her oxygen requirements had improved a bit. * CTA was negative for PE but however showed severe diffuse lung disease. * 2D echo showed EF of 40 to 50% with moderate global dysfunction of the right ventricle and mild biatrial dilation with moderate eccentric mitral valve insufficiency and a right ventricular systolic pressure of 53 mmHg. * Breathing treatments bronchodilators. Monitor fluid intake and output. * Titrate oxygen to maintain saturation above 90%. * There was concern that patient may also have sleep apnea at baseline due to her weight. Will need follow-up with pulmonology on outpatient basis. #Atrial fibrillation * EKG on admission showed atrial flutter with variable block. Currently on metoprolol 50 mg twice daily. On Eliquis. TSH was normal. * #Hypertension: Amlodipine and triamterene hydrochlorothiazide on hold. On metoprolol. Currently on IV Lasix also. #COPD: * Breathing treatments bronchodilators. Not an active exacerbation. * Wears 3 L of oxygen chronically at rest and 6 L with ambulation. * #Class III obesity: Complicates acute care, expected current prognosis. #DVT prophylaxis: Already on Eliquis. Disposition: * Anticipate will be able to discharge patient home over the next 24 to 48 hours. Her walking pulse ox today showed that she required 8 L of oxygen. She is usually on 6L of oxygen at home with ambulation. Medications at Discharge Home Medications Oxygen, Home [Home Oxygen] 2 - 4 lpm QHS 11/13/17 ascorbic acid (vitamin C) 500 mg capsule 500 mg PO DAILY 11/13/17 albuterol sulfate 90 mcg/actuation breath activated powder inhaler 2 inh inhalation Q6H PRN shortness of breath 02/19/25 amlodipine 10 mg tablet 10 mg PO DAILY 02/19/25 fluticasone fur. 200 mcg-umeclid 62.5 mcg-vilant 25 mcg inhalat.powder (Trelegy Ellipta) 1 ea inhalation DAILY 02/19/25 guaifenesin 1,200 mg tablet, extended release 12 hr (Mucus Relief ER) 1,200 mg PO BID PRN cough 02/19/25 ipratropium 0.5 mg-albuterol 3 mg (2.5 mg base)/3 mL nebulization soln 3 ml inhalation Q6H PRN shortness of breath 02/19/25 multivitamin (Daily Multi-Vitamin tablet) 1 tab PO DAILY 02/19/25 sodium chloride 0.65 % nasal spray aerosol (Oxford Saline) 1 spray intranasal BID PRN dry nasal passages 02/19/25 triamcinolone acetonide 0.5 % topical cream 1 applic topical BID PRN itching 02/19/25 apixaban 5 mg tablet (Eliquis) 5 mg PO BID #60 tabs 02/23/25 furosemide 40 mg tablet 40 mg PO BID #60 tabs 02/23/25 metoprolol tartrate 50 mg tablet 50 mg PO BID #60 tabs 02/23/25 potassium chloride 20 mEq tablet,extended release(part/cryst) (Klor-Con M) 20 meq PO BID #60 tabs 02/23/25 Hospital Course Operations None Procedures 2-D Echocardiogram Summary of Care Provided Minutes Spent on Discharge: 45 Hospital Course: Patient is a 69-year-old female with a past medical history as outlined including history of COPD on 3 L of oxygen as well as hypertension was admitted through the ED on 02/19/2025 with complaint of worsening shortness of breath withexertion over the past several days prior to admission with associated bilaterallower extremity swelling. On admission Saturation dropped to 85% on 5 L of oxygen with respiratory going up to 28. Her heart rate was 116. Chest x-ray showed pulmonary venous congestion. EKG also showed atrial fibrillation versus atrial flutter and she was given IV Lopressor. She was admitted to be managed for new onset of heart failure. She was admitted and managed for new onset atrial fibrillation versus atrial flutter as well as COPD exacerbation acute exacerbation of heart failure. She was started on diuresis with IV Lasix and also placed on Eliquis and metoprolol. She had 2D echo which showed EF of 45 to50% and unable to assess diastolic dysfunction due to arrhythmia and she had moderate global right ventricular systolic dysfunction. Her RVSP was 53 mmHg. CTA of the chest done was negative for any evidence of PE. CT however did show severe diffuse lung disease. There was concern also that patient may have sleepapnea at baseline due to her size. Patient shortness of breath improved and shewas weaned down to her baseline 3 L of oxygen at rest and 6 L with ambulation. She was therefore discharged home on 02/23/2025. She was discharged on p.o. metoprolol 50 mg twice daily as well as p.o. Lasix 40 mg twice daily with potassium supplementation. She was also discharged on p.o. Eliquis 5 mg twice daily for stroke prophylaxis. Her triamterene hydrochlorothiazide was discontinued as she was being started on Lasix and metoprolol. She was referredto cardiology to follow-up for her A-fib and heart failure. She is she is also to follow-up with her PCP within 1 to 2 weeks. Of note, TSH was WNL at 0.626. Patient seen and examined prior to discharge. She had no active complaints and felt better. Review of systems otherwise negative. Labs and vitals reviewed. Home medication reviewed and reconciled. Physical Exam Const alert, oriented x3, no apparent distress and well nourished; Negative for average body habitus or healthy appearing Constitutional Narrative: class III obesity General Appearance: cooperative and comfortable Orientation / Consciousness: awake Exam Limitations: no limitations HEENT normocephalic, head/scalp atraumatic, hearing grossly normal bilaterally, moist oral mucous membranes, oropharynx normal and gingiva normal Mouth: oral and palatal mucosa normal Eyes PERRL, EOMs intact bilaterally and conjunctivae normal Neck no lymphadenopathy, supple and no JVD Lymph Lymphatic: no lymphadenopathy noted, no lymphedema noted and lymphedema Resp normal respiratory effort, no retractions, no use of accessory muscles and clearto auscultation bilaterally Resp Narrative: mildly diminished breath sounds bibasally, no wheezes or crackles. On 3.5L of oxygen. Auscultation: rales; Negative for rhonchi or wheezes Cardio regular rate, regular rhythm, S1 normal heart sound, S2 normal heart sound, no murmurs, no rub, no gallops and no clicks Cardio Narrative: Crackles at bases bilaterally GI normal to inspection, nondistended, normoactive bowel sounds, soft to palpation,non-tender and non-distended GI Narrative: obese abdomen Extremity normal capillary refill, no clubbing, cyanosis or edema and no calf tenderness General Extremity: no tenderness to palpation of joints or extremities Skin General Skin Exam: no breakdown Neuro oriented x3, CN's II-XII intact bilaterally, moves all extremities, no focal motor deficits and no sensory deficits noted Speech: speech normal Motor Exam: strength 5/5 throughout and general weakness Psych thought process normal, cooperative and affect normal Appearance: appropriate Weight / BMI Weight Weight: 259 lb 11.272 oz Body Mass Index (BMI) 44.6 ABG / Lab / Microbiology Data 02/23/25 05:51 02/23/25 05:51 Laboratory: Laboratory Results - last 24 hr 02/23/25 05:51: WBC 7.6, RBC 4.56, Hgb 14.1, Hct 45.7, MCV 100.2 H, MCH 30.9, MCHC 30.9 L, RDW Std Deviation 53.5 H, RDW Coeff of Karly 14.3, Plt Count 217, MPV 10.7, Immature Gran % (Auto) 0.400, Neut % (Auto) 78.1 H, Lymph % (Auto) 11.2 L,[place] % (Auto) 7.9, Eos % (Auto) 1.7, Baso % (Auto) 0.7, Absolute Neuts (auto) 5.9, Absolute Lymphs (auto) 0.85, Nucleated RBC % 0, Sodium 145, Potassium 3.3, Chloride 96 L, Carbon Dioxide 40.2 H, Anion Gap 9, BUN 20 H, Creatinine 0.62 L, Estim Creat Clear Calc 86.12, Est GFR (MDRD) Non-Af 97, BUN/Creatinine Ratio 31.6 H, Glucose 114 H, Calcium 9.4 Microbiology: Microbiology 02/19/25 14:05 Blood Culture (Wb) - Anticubital Right Blood Culture - Preliminary No growth in 48 hours. 02/19/25 13:09 Blood Culture (Wb) - No Site/Description Given Blood Culture - Preliminary No growth in 48 hours. 02/19/25 14:35 Urine, Clean Catch Urine Culture - Final Mixed Gram Pos & Gram Neg Org 02/20/25 10:35 Mucosa - Nasopharyngeal Respiratory Panel (PCR) - Final 02/19/25 13:10 Mucosa - Nose SARS-CoV-2, Influenza & RSV (PCR) - Final D/C Instructions Discharge Diet: Low fat / Low cholesterol Discharge Activity: Return to Normal Activity Weight Bearing Status: Weight bearing as tolerated Call your doctor if you observe: Fever of 101 or Higher, Shortness of breath, Dizziness, Swelling in the ankles and Chest pain DC O2, CPAP, BIPAP Needs Home O2 Discharge instructions: Yes Type of respiratory needs?: Oxygen Oxygen frequency: At rest (3.5) and With Ambulation Oxygen liters per minute during Ambulation: 6 DC home with Oxygen: Yes Home O2 MD Review: I have reviewed the oxygen testing, and the patient qualifies for home oxygen equipment and portability. The patient is mobile in the home and the community. Meaningful Use Info Meaningful Use Meaningful Use Diagnoses (Choose all that apply): CHF CHF NINA/ARB ordered at discharge?: No Reason NINA/ARB not ordered?: Not indicated Documented LVEF (%): 45 Ischemic Stroke Statin Dosing Therapy Reference: STATIN DOSE THERAPY REFERENCE: * Patients > 75 years receive moderate or high dose statin therapy. * Patients 75 years or YOUNGER should receive HIGH intensity statin dose unless contraindicated. You will be required to document reason for non-treatment if statin daily dose does not meet guidelines. HIGH DOSE STATIN THERAPY DAILY Atorvastatin > than or = to 40 mg Rosuvastatin > than or = to 20 mg Amlodipine + Atorvastatin > than or = to 2.5/40 mg Ezetimibe + Simvastatin 10/80 mg Simvastatin 80mg Discharge Plan Admission Admit Date/Time: 02/19/25 15:53 Primary Reason for Your Visit: acute exacerbation of heart failure Attending Provider: Yee Jones Primary Care Provider: Phuc Martines Consulting Providers: Kym Norton; Claudia Valerio Instructions Patient Instructions: Coping with Heart Failure Discharge Orders/Prescriptions Prescriptions: New metoprolol tartrate 50 mg Tablet 50 mg PO BID Qty: 60 2RF furosemide 40 mg tablet 40 mg PO BID Qty: 60 2RF potassium chloride [Klor-Con M20] 20 mEq tablet,ER particles/crystals 20 meq PO BID Qty: 60 2RF Eliquis 5 mg Tablet 5 mg PO BID Qty: 60 2RF Continued ascorbic acid (vitamin C) 500 MG capsule 500 mg PO DAILY Oxygen, Home [Home Oxygen] 2 - 4 lpm NASAL QHS albuterol sulfate 90 mcg/actuation aerosol powdr breath activated 2 inh inhalation Q6H PRN (Reason: shortness of breath) amlodipine 10 mg tablet 10 mg PO DAILY Trelegy Ellipta 200-62.5-25 mcg blister with device 1 ea inhalation DAILY triamcinolone acetonide 0.5 % cream 1 applic topical BID PRN (Reason: itching) ipratropium-albuterol 0.5 mg-3 mg(2.5 mg base)/3 mL solution for nebulization 3 ml inhalation Q6H PRN (Reason: shortness of breath) multivitamin [Daily Multi-Vitamin] Tablet 1 tab PO DAILY Oxford Saline 0.65 % aerosol,spray 1 spray intranasal BID PRN (Reason: dry nasal passages) guaifenesin [Mucus Relief ER] 1,200 MG tablet 1,200 mg PO BID PRN (Reason: cough) Discontinued triamterene-hydrochlorothiazid 37.5-25 mg capsule 1 cap PO DAILY Patient Comments: PT TAKES IN AFTERNOON Referrals / Follow Up: Piyush Peterson MD [Med Staff - Active Staff] - Within 2 Weeks (see to establish care for afib and heart failure) Phuc Martines DO [Primary Care Provider] - Within 1 Week Yonathan Gonzalez DO [Med Staff - Active Staff] - Within 2 Weeks (see to establish care for lung disease as seen per CT) Disposition Disposition (needs filled in before D/C Order can be placed): Home, Self Care Charges/Coding Visit Charges Inpatient E&M: 86096 Disch Hosp >30min 02/23/25 1449 <Electronically signed by Yee Jones MD> Cosigner Signature (if applicable): CC: Dr. Phuc Martines DO; Dr. Yee Jones MD~ Signed [facility] Work Phone: [phone] Discharge summary [facility] Medical Records Department [address] [place] [id number] Discharge Summary 02/23/25 1322 MR#: [id number] Acct: [id number] Name: LISA LUCERO Rep #:[id number] : 1955 69 From: Yee Jones MD PCP: Dr. Phuc Martines DO Status:AD M IN Location: [facility] [id number] Providers Date of Admission: 02/19/25 Date of Discharge: 02/23/25 Primary Care Physician: Dr. Phuc Martines DO Reason For Visit: HYPOXIA Diagnosis Discharge Diagnosis (1) Atrial flutter: Status: Acute Code(s): I48.92 - Unspecified atrial flutter (2) Dyspnea on exertion: Status: Acute Code(s): R06.09 - Other forms of dyspnea (3) Acute on chronic hypoxic respiratory failure: Status: Chronic Code(s): J96.21 - Acute and chronic respiratory failure with hypoxia Plan #Acute on chronic hypoxic respiratory failure due to acute combined heart failure * Usual was 3.5 L of oxygen at rest and 6 L with exertion. Currently requiring 4 L at rest and 10 Lwith exertion. She required 8 L today as her oxygen requirements had improved a bit. * CTA was negative for PE but however showed severe diffuse lung disease. * 2D echo showed EF of 40 to 50% with moderate global dysfunction of the right ventricle and mild biatrial dilation with moderate eccentric mitral valve insufficiency and a right ventricular systolicpressure of 53 mmHg. * Breathing treatments bronchodilators. Monitor fluid intake and output. * Titrate oxygen to maintain saturation above 90%. * There was concern that patient may also have sleep apnea at baseline due to her weight. Will needfollow-up with pulmonology on outpatient basis. #Atrial fibrillation * EKG on admission showed atrial flutter with variable block. Currently on metoprolol 50 mg twice daily. On Eliquis. TSH was normal. * #Hypertension: Amlodipine and triamterene hydrochlorothiazide on hold. On metoprolol. Currently on IV Lasix also. #COPD: * Breathing treatments bronchodilators. Not an active exacerbation. * Wears 3 L of oxygen chronically at rest and 6 L with ambulation. * #Class III obesity: Complicates acute care, expected current prognosis. #DVT prophylaxis: Already on Eliquis. Disposition: * Anticipate will be able to discharge patient home over the next 24 to 48 hours. Her walking pulseox today showed that she required 8 L of oxygen. She is usually on 6L of oxygen at home with ambulation. Medications at Discharge Home Medications Oxygen, Home [Home Oxygen] 2 - 4 lpm QHS 11/13/17 ascorbic acid (vitamin C) 500 mg capsule 500 mg PO DAILY 11/13/17 albuterol sulfate 90 mcg/actuation breath activated powder inhaler 2 inh inhalation Q6H PRN shortness of breath 02/19/25 amlodipine 10 mg tablet 10 mg PO DAILY 02/19/25 fluticasone fur. 200 mcg-umeclid 62.5 mcg-vilant 25 mcg inhalat.powder (Trelegy Ellipta) 1 ea inhalation DAILY 02/19/25 guaifenesin 1,200 mg tablet, extended release 12 hr (Mucus Relief ER) 1,200 mg PO BID PRN cough 02/19/25 ipratropium 0.5 mg-albuterol 3 mg (2.5 mg base)/3 mL nebulization soln 3 ml inhalation Q6H PRN shortness of breath 02/19/25 multivitamin (Daily Multi-Vitamin tablet) 1 tab PO DAILY 02/19/25 sodium chloride 0.65 % nasal spray aerosol (Oxford Saline) 1 spray intranasal BID PRN dry nasal passages 02/19/25 triamcinolone acetonide 0.5 % topical cream 1 applic topical BID PRN itching 02/19/25 apixaban 5 mg tablet (Eliquis) 5 mg PO BID #60 tabs 02/23/25 furosemide 40 mg tablet 40 mg PO BID #60 tabs 02/23/25 metoprolol tartrate 50 mg tablet 50 mg PO BID #60 tabs 02/23/25 potassium chloride 20 mEq tablet,extended release(part/cryst) (Klor-Con M) 20 meq PO BID #60 tabs 02/23/25 Hospital Course Operations None Procedures 2-D Echocardiogram Summary of Care Provided Minutes Spent on Discharge: 45 Hospital Course: Patient is a 69-year-old female with a past medical history as outlined including history of COPD on 3 L of oxygen as well as hypertension was admitted through the ED on 02/19/2025 with complaint of worsening shortness of breath withexertion over the past several days prior to admission with associated bilaterallower extremity swelling. On admission Saturation dropped to 85% on 5 L of oxygen with respiratory going up to 28. Her heart rate was 116. Chest x-ray showed pulmonary venous congestion. EKG also showed atrial fibrillation versus atrial flutter and she was given IV Lopressor. She was admitted to be managed for new onset of heart failure. She was admitted and managed for new onset atria l fibrillation versus atrial flutter as well as COPD exacerbation acute exacerbation of heart failure. She was started on diuresis with IV Lasix and also placed on Eliquis and metoprolol. She had 2D echo which showed EF of 45 to50% and unable to assess diastolic dysfunction due to arrhythmia and she had moderate global right ventricular systolic dysfunction. Her RVSP was 53 mmHg. CTA of the chestdone was negative for any evidence of PE. CT however did show severe diffuse lung disease. There was concern also that patient may have sleepapnea at baseline due to her size. Patient shortness of breath improved and shewas weaned down to her baseline 3 L of oxygen at rest and 6 L with ambulation. She was therefore discharged home on 02/23/2025. She was discharged on p.o. metoprolol 50 mg twice daily as well as p.o. Lasix 40 mg twice daily with potassium supplementation. She was also discharged on p.o. Eliquis 5 mg twice daily for stroke prophylaxis. Her triamterene hydrochlorothiazide was disc ontinued as she was being started on Lasix and metoprolol. She was referredto cardiology to follow-up for her A-fib and heart failure. She is she is also to follow-up with her PCP within 1 to 2 weeks. Of note, TSH was WNL at 0.626. Patient seen and examined prior to discharge. She had no active complaints and felt better. Review of systems otherwise negative. Labs and vitals reviewed. Home medication reviewed and reconciled. Physical Exam Const alert, oriented x3, no apparent distress and well nourished; Negative for average body habitus or healthy appearing Constitutional Narrative: class III obesity General Appearance: cooperative and comfortable Orientation / Consciousness: awake Exam Limitations: no limitations HEENT normocephalic, head/scalp atraumatic, hearing grossly normal bilaterally, moist oral mucous membranes, oropharynx normal and gingiva normal Mouth: oral and palatal mucosa normal Eyes PERRL, EOMs intact bilaterally and conjunctivae normal Neck no lymphadenopathy, supple and no JVD Lymph Lymphatic: no lymphadenopathy noted, no lymphedema noted and lymphedema Resp normal respiratory effort, no retractions, no use of accessory muscles and clearto auscultation bilaterally Resp Narrative: mildly diminished breath sounds bibasally, no wheezes or crackles. On 3.5L of oxygen. Auscultation: rales; Negative for rhonchi or wheezes Cardio regular rate, regular rhythm, S1 normal heart sound, S2 normal heart sound, no murmurs, no rub, no gallops and no clicks Cardio Narrative: Crackles at bases bilaterally GI normal to inspection, nondistended, normoactive bowel sounds, soft to palpation,non-tender and non-distended GI Narrative: obese abdomen Extremity normal capillary refill, no clubbing, cyanosis or edema and no calf tenderness General Extremity: no tenderness to palpation of joints or extremities Skin General Skin Exam: no breakdown Neuro oriented x3, CN's II-XII intact bilaterally, moves all extremities, no focal motor deficits and no sensory deficits noted Speech: speech normal Motor Exam: strength 5/5 throughout and general weakness Psych thought process normal, cooperative and affect normal Appearance: appropriate Weight / BMI Weight Weight: 259 lb 11.272 oz Body Mass Index (BMI) 44.6 ABG / Lab / Microbiology Data 02/23/25 05:51 02/23/25 05:51 Laboratory: Laboratory Results - last 24 hr 02/23/25 05:51: WBC 7.6, RBC 4.56, Hgb 14.1, Hct 45.7, MCV 100.2 H, MCH 30.9, MCHC 30.9 L, RDW Std Deviation 53.5 H, RDW Coeff of Karly 14.3, Plt Count 217, MPV 10.7, Immature Gran % (Auto) 0.400, Neut% (Auto) 78.1 H, Lymph % (Auto) 11.2 L,[place] % (Auto) 7.9, Eos % (Auto) 1.7, Baso % (Auto) 0.7, Absolute Neuts (auto) 5.9, Absolute Lymphs (auto) 0.85, Nucleated RBC % 0, Sodium 145, Potassium 3.3, Chloride 96 L, Carbon Dioxide 40.2 H, Anion Gap 9, BUN 20 H, Creatinine 0.62 L, Estim Creat Clear Calc86.12, Est GFR (MDRD) Non-Af 97, BUN/Creatinine Ratio 31.6 H, Glucose 114 H, Calcium 9.4 Microbiology: Microbiology 02/19/25 14:05 Blood Culture (Wb) - Anticubital Right Blood Culture - Preliminary No growth in 48 hours. 02/19/25 13:09 Blood Culture (Wb) - No Site/Description Given Blood Culture - Preliminary No growth in 48 hours. 02/19/25 14:35 Urine, Clean Catch Urine Culture - Final Mixed Gram Pos & Gram Neg Org 02/20/25 10:35 Mucosa - Nasopharyngeal Respiratory Panel (PCR) - Final 02/19/25 13:10 Mucosa - Nose SARS-CoV-2, Influenza & RSV (PCR) - Final D/C Instructions Discharge Diet: Low fat / Low cholesterol Discharge Activity: Return to Normal Activity Weight Bearing Status: Weight bearing as tolerated Call your doctor if you observe: Fever of 101 or Higher, Shortness of breath, Dizziness, Swelling in the ankles and Chest pain DC O2, CPAP, BIPAP Needs Home O2 Discharge instructions: Yes Type of respiratory needs?: Oxygen Oxygen frequency: At rest (3.5) and With Ambulation Oxygen liters per minute during Ambulation: 6 DC home with Oxygen: Yes Home O2 MD Review: I have reviewed the oxygen testing, and the patient qualifies for home oxygen equipment and portability. The patient is mobile in the home and the community. Meaningful Use Info Meaningful Use Meaningful Use Diagnoses (Choose all that apply): CHF CHF NINA/ARB ordered at discharge?: No Reason NINA/ARB not ordered?: Not indicated Documented LVEF (%): 45 Ischemic Stroke Statin Dosing Therapy Reference: STATIN DOSE THERAPY REFERENCE: * Patients > 75 years receive moderate or high dose statin therapy. * Patients 75 years or YOUNGER should receive HIGH intensity statin dose unless contraindicated. You will be required to document reason for non-treatment if statin daily dose does not meet guidelines. HIGH DOSE STATIN THERAPY DAILY Atorvastatin > than or = to 40 mg Rosuvastatin > than or = to 20 mg Amlodipine + Atorvastatin > than or = to 2.5/40 mg Ezetimibe + Simvastatin 10/80 mg Simvastatin 80mg Discharge Plan Admission Admit Date/Time: 02/19/25 15:53 Primary Reason for Your Visit: acute exacerbation of heart failure Attending Provider: Yee Jones Primary Care Provider: Phuc Martines Consulting Providers: Kym Norton; Claudia Valerio Instructions Patient Instructions: Coping with Heart Failure Discharge Orders/Prescriptions Prescriptions: New metoprolol tartrate 50 mg Tablet 50 mg PO BID Qty: 60 2RF furosemide 40 mg tablet 40 mg PO BID Qty: 60 2RF potassium chloride [Klor-Con M20] 20 mEq tablet,ER particles/crystals 20 meq PO BID Qty: 60 2RF Eliquis 5 mg Tablet 5 mg PO BID Qty: 60 2RF Continued ascorbic acid (vitamin C) 500 MG capsule 500 mg PO DAILY Oxygen, Home [Home Oxygen] 2 - 4 lpm NASAL QHS albuterol sulfate 90 mcg/actuation aerosol powdr breath activated 2 inh inhalation Q6H PRN (Reason: shortness of breath) amlodipine 10 mg tablet 10 mg PO DAILY Trelegy Ellipta 200-62.5-25 mcg blister with device 1 ea inhalation DAILY triamcinolone acetonide 0.5 % cream 1 applic topical BID PRN (Reason: itching) ipratropium-albuterol 0.5 mg-3 mg(2.5 mg base)/3 mL solution for nebulization 3 ml inhalation Q6H PRN (Reason: shortness of breath) multivitamin [Daily Multi-Vitamin] Tablet 1 tab PO DAILY Oxford Saline 0.65 % aerosol,spray 1 spray intranasal BID PRN (Reason: dry nasal passages) guaifenesin [Mucus Relief ER] 1,200 MG tablet 1,200 mg PO BID PRN (Reason: cough) Discontinued triamterene-hydrochlorothiazid 37.5-25 mg capsule 1 cap PO DAILY Patient Comments: PT TAKES IN AFTERNOON Referrals / Follow Up: Piyush Peterson MD [Med Staff - Active Staff] - Within 2 Weeks (see to establish care for afib and heart failure) Phuc Martines DO [Primary Care Provider] - Within 1 Week Yonathan Gonzalez DO [Med Staff - Active Staff] - Within 2 Weeks (see to establish care for lung diseaseas seen per CT) Disposition Disposition (needs filled in before D/C Order can be placed): Home, Self Care Charges/Coding Visit Charges Inpatient E&M: 03782 Disch Hosp >30min 02/23/25 1449 Cosigner Signature (if applicable): CC: Dr. Phuc Martines DO; Dr. Yee Jones MD~ Signed [facility]04-29-2025 Consult note [facility] Medical Records Department [address] [place] [address] Counseling Note - Pharmacy 02/23/25 1410 MR#: [id number] Acct: [id number] Name: LISA LUCERO Rep #:[id number] : 1955 69 From: Brandan Rodas PCP: Dr. Phuc Martines DO Status:AD M IN [facility] has performed discharge medication reconciliation and counseling for this patient. 1. Apixaban 5mg PO BID 2. Furosemide 40mg PO BID 3. Metoprolol tartrate 50mg PO BID 4. Potassium chloride 20mEq PO BID 5. Stop triamterene/hydrochlorothiazide The patient's discharge medication list was reviewed for discrepancies and discrepancies were resolved. The patient was counseled on the following discharge medications and changes in medications for homegoing were reviewed. The Reason for Use, instructions for use, and potential side effects were reviewed for all new medications. The patient's questions regarding all of their medications were answered. The patient was able to verbally demonstrate an understanding of their dischargemedications. Patient counseled by pharmacy specialist, Pete. Medications at Discharge Home Medications Oxygen, Home [Home Oxygen] 2 - 4 lpm QHS 11/13/17 ascorbic acid (vitamin C) 500 mg capsule 500 mg PO DAILY 11/13/17 albuterol sulfate 90 mcg/actuation breath activated powder inhaler 2 inh inhalation Q6H PRN shortness of breath 02/19/25 amlodipine 10 mg tablet 10 mg PO DAILY 02/19/25 fluticasone fur. 200 mcg-umeclid 62.5 mcg-vilant 25 mcg inhalat.powder (Trelegy Ellipta) 1 ea inhalation DAILY 02/19/25 guaifenesin 1,200 mg tablet, extended release 12 hr (Mucus Relief ER) 1,200 mg PO BID PRN cough 02/19/25 ipratropium 0.5 mg-albuterol 3 mg (2.5 mg base)/3 mL nebulization soln 3 ml inhalation Q6H PRN shortness of breath 02/19/25 multivitamin (Daily Multi-Vitamin tablet) 1 tab PO DAILY 02/19/25 sodium chloride 0.65 % nasal spray aerosol (Oxford Saline) 1 spray intranasal BID PRN dry nasal passages 02/19/25 triamcinolone acetonide 0.5 % topical cream 1 applic topical BID PRN itching 02/19/25 apixaban 5 mg tablet (Eliquis) 5 mg PO BID #60 tabs 02/23/25 furosemide 40 mg tablet 40 mg PO BID #60 tabs 02/23/25 metoprolol tartrate 50 mg tablet 50 mg PO BID #60 tabs 02/23/25 potassium chloride 20 mEq tablet,extended release(part/cryst) (Klor-Con M) 20 meq PO BID #60 tabs 02/23/25 02/23/25 1412 Date _ Brandan Maloneigner Signature (if applicable): CC: ~ Signed [facility]04-29-2025 Discharge summary [facility] Medical Records Department [address] [place] [address] Instructions for Home/Discharge Instructions 02/23/25 1320 MR#: [id number] Acct: [id number] Name: LISA LUCERO Rep #:[id number] : 1955 69 From: Yee Jones MD PCP: Dr. Phuc Martines, DO Status:AD M IN Discharge Instructions Diet Discharge Diet: Low fat / Low cholesterol DC O2, CPAP, BIPAP needs Home O2 Discharge instructions: Yes Type of respiratory needs?: Oxygen Oxygen frequency: At rest (3.5) and With Ambulation Oxygen liters per minute during Ambulation: 6 Dressing / Incision Discharge Activity: Return to Normal Activity Weight Bearing Status: Weight bearing as tolerated Dressing / Incision Call your doctor if you observe: Fever of 101 or Higher, Shortness of breath, Dizziness, Swelling in the ankles and Chest pain Follow Up Care Test Results: Test results from this visit will be discussed in further detail at your follow- up appointment, if applicable. Discharge Plan Admission Admit Date/Time: 02/19/25 15:53 Primary Reason for Your Visit: acute exacerbation of heart failure Attending Provider: Yee Jones Primary Care Provider: Phuc Martines Consulting Providers: Kym Norton; Claudia Valerio Instructions Patient Instructions: Coping with Heart Failure Discharge Orders/Prescriptions Prescriptions: New metoprolol tartrate 50 mg Tablet 50 mg PO BID Qty: 60 2RF furosemide 40 mg tablet 40 mg PO BID Qty: 60 2RF potassium chloride [Klor-Con M20] 20 mEq tablet,ER particles/crystals 20 meq PO BID Qty: 60 2RF Eliquis 5 mg Tablet 5 mg PO BID Qty: 60 2RF Continued ascorbic acid (vitamin C) 500 MG capsule 500 mg PO DAILY Oxygen, Home [Home Oxygen] 2 - 4 lpm NASAL QHS albuterol sulfate 90 mcg/actuation aerosol powdr breath activated 2 inh inhalation Q6H PRN (Reason: shortness of breath) amlodipine 10 mg tablet 10 mg PO DAILY Trelegy Ellipta 200-62.5-25 mcg blister with device 1 ea inhalation DAILY triamcinolone acetonide 0.5 % cream 1 applic topical BID PRN (Reason: itching) ipratropium-albuterol 0.5 mg-3 mg(2.5 mg base)/3 mL solution for nebulization 3 ml inhalation Q6H PRN (Reason: shortness of breath) multivitamin [Daily Multi-Vitamin] Tablet 1 tab PO DAILY Oxford Saline 0.65 % aerosol,spray 1 spray intranasal BID PRN (Reason: dry nasal passages) guaifenesin [Mucus Relief ER] 1,200 MG tablet 1,200 mg PO BID PRN (Reason: cough) Discontinued triamterene-hydrochlorothiazid 37.5-25 mg capsule 1 cap PO DAILY Patient Comments: PT TAKES IN AFTERNOON Referrals / Follow Up: Piyush Peterson MD [Med Staff - Active Staff] - Within 2 Weeks (see to establish care for afib and heart failure) Phuc Martines DO [Primary Care Provider] - Within 1 Week Disposition Disposition (needs filled in before D/C Order can be placed): Home, Self Care 02/23/25 132Yee Jones MD CC: Dr. Phuc Martines DO; Dr. Claudia Valerio DO; Dr. Kym Norton MD ~ Signed [facility]04-29-2025 [facility] Medical Records Department [address] [place] [address] Discharge Summary 02/23/25 1322 MR#: [id number] Acct: [id number] Name: LISA LUCERO Rep #: [id number] : 1955 69 From: Yee Jones MD PCP: Dr. Phuc Martines, Status:ADM IN Location: [facility] [id number] Providers Date of Admission: 02/19/25 Date of Discharge: 02/23/25 Primary Care Physician: Dr. Phuc Martines DO Reason For Visit: HYPOXIA Diagnosis Discharge Diagnosis (1) Atrial flutter: Status: Acute Code(s): I48.92 - Unspecified atrial flutter (2) Dyspnea on exertion: Status: Acute Code(s): R06.09 - Other forms of dyspnea (3) Acute on chronic hypoxic respiratory failure: Status: Chronic Code(s): J96.21 - Acute and chronic respiratory failure with hypoxia Plan #Acute on chronic hypoxic respiratory failure due to acute combined heart failure * Usual was 3.5 L of oxygen at rest and 6 L with exertion. Currently requiring 4 L at rest and 10 L with exertion. She required 8 L today as her oxygen requirements had improved a bit. * CTA was negative for PE but however showed severe diffuse lung disease. * 2D echo showed EF of 40 to 50% with moderate global dysfunction of the right ventricle and mild biatrial dilation with moderate eccentric mitral valve insufficiency and a right ventricular systolic pressure of 53 mmHg. * Breathing treatments bronchodilators. Monitor fluid intake and output. * Titrate oxygen to maintain saturation above 90%. * There was concern that patient may also have sleep apnea at baseline due to her weight. Will need follow-up with pulmonology on outpatient basis. #Atrial fibrillation * EKG on admission showed atrial flutter with variable block. Currently on metoprolol 50 mg twice daily. On Eliquis. TSH was normal. * #Hypertension: Amlodipine and triamterene hydrochlorothiazide on hold. On metoprolol. Currently on IV Lasix also. #COPD: * Breathing treatments bronchodilators. Not an active exacerbation. * Wears 3 L of oxygen chronically at rest and 6 L with ambulation. * #Class III obesity: Complicates acute care, expected current prognosis. #DVT prophylaxis: Already on Eliquis. Disposition: * Anticipate will be able to discharge patient home over the next 24 to 48 hours. Her walking pulse ox today showed that she required 8 L of oxygen. She is usually on 6L of oxygen at home with ambulation. Medications at Discharge Home Medications Oxygen, Home [Home Oxygen] 2 - 4 lpm QHS 11/13/17 ascorbic acid (vitamin C) 500 mg capsule 500 mg PO DAILY 11/13/17 albuterol sulfate 90 mcg/actuation breath activated powder inhaler 2 inh inhalation Q6H PRN shortness of breath 02/19/25 amlodipine 10 mg tablet 10 mg PO DAILY 02/19/25 fluticasone fur. 200 mcg-umeclid 62.5 mcg-vilant 25 mcg inhalat.powder (Trelegy Ellipta) 1 ea inhalation DAILY 02/19/25 guaifenesin 1,200 mg tablet, extended release 12 hr (Mucus Relief ER) 1,200 mg PO BID PRN cough 02/19/25 ipratropium 0.5 mg-albuterol 3 mg (2.5 mg base)/3 mL nebulization soln 3 ml inhalation Q6H PRN shortness of breath 02/19/25 multivitamin (Daily Multi-Vitamin tablet) 1 tab PO DAILY 02/19/25 sodium chloride 0.65 % nasal spray aerosol (Oxford Saline) 1 spray intranasal BID PRN dry nasal passages 02/19/25 triamcinolone acetonide 0.5 % topical cream 1 applic topical BID PRN itching 02/19/25 apixaban 5 mg tablet (Eliquis) 5 mg PO BID #60 tabs 02/23/25 furosemide 40 mg tablet 40 mg PO BID #60 tabs 02/23/25 metoprolol tartrate 50 mg tablet 50 mg PO BID #60 tabs 02/23/25 potassium chloride 20 mEq tablet,extended release(part/cryst) (Klor-Con M) 20 meq PO BID #60 tabs 02/23/25 Hospital Course Operations None Procedures 2-D Echocardiogram Summary of Care Provided Minutes Spent on Discharge: 45 Hospital Course: Patient is a 69-year-old female with a past medical history as outlined including history of COPD on 3 L of oxygen as well as hypertension was admitted through the ED on 02/19/2025 with complaint of worsening shortness of breath with exertion over the past several days prior to admission with associated bilateral lower extremity swelling. On admission Saturation dropped to 85% on 5 L of oxygen with respiratory going up to 28. Her heart rate was 116. Chest x-ray showed pulmonary venous congestion. EKG also showed atrial fibrillation versus atrial flutter and she was given IV Lopressor. She was admitted to be managed for new onset of heart failure. She was admitted and managed for new onset atrial fibrillation versus atrial flutter as well as COPD exacerbation acute exacerbation of heart failure. She was started on diuresis with IV Lasix and also placed on Eliquis and metoprolol. She had 2D echo which showed EF of 45 to 50% and unable to assess diastolic dysfunction due to arrhythmia and she had moderate global right ventricular (more content not included)...[facility]04-28-2025 Progress note Author Yee Jones [facility] Note Date/Time February 22, 2025 4:4 4pm [facility] Medical Records Department [address] [place] [address] Progress Note 02/22/25 1411 MR#: [id number] Acct: [id number] Name: LISA LUCERO Rep #:[id number] : 1955 69 From: Yee Jones MD PCP: Dr. Phuc Martines, DO Status:[facility] IN Location: [place] [address] Subjective Subjective Patient seen and examined. She said she felt much better today and that her breathing had improved. She denies any cough, chest pain, palpitations, dizziness, nausea or vomiting or any other symptoms. Review of systems otherwise negative. She required up to 10L with ambulation yesterday. Walking pulse ox today showed that she required 8L. She usually wears 6L at home. Objective Data Objective Data Vital Signs: Vital Signs Temp Pulse Resp BP Pulse Ox O2 Del Method O2 Flow Rate 98.2 F 78 18 120/75 105 Nasal Cannula 3.5 02/22/25 09:00 02/22/25 12:06 02/22/25 12:06 02/22/25 09:27 02/22/25 09:00 02/22/25 09:00 02/22/25 09:00 Oxygen Flow Rate (L/min) 3.5 Oxygen Delivery Method Nasal Cannula Weight: 260 lb 9.382 oz Body Mass Index (BMI) 44.7 Intake & Output: Intake and Output for Last 24 Hours 02/20/25 02/21/25 02/22/25 23:59 23:59 23:59 Intake Total 1250 / 1490 1640 / 1640 240 / 240 Output Total 1650 / 1650 2050 / 2050 700 / 700 Balance -400 / -160 -410 / -410 -460 / -460 Lab / Micro Data 02/22/25 05:39 02/22/25 05:39 Labs: Laboratory Results - last 24 hr 02/22/25 05:39: WBC 8.1, RBC 4.21, Hgb 13.2, Hct 42.6, MCV 101.2 H, MCH 31.4, MCHC 31.0 L, RDW Std Deviation 54.4 H, RDW Coeff of Karly 14.5, Plt Count 189, MPV 11.3, Sodium 144, Potassium 3.5, Chloride 96 L, Carbon Dioxide 36.4 H, Anion Gap11, BUN 22 H, Creatinine 0.60 L, Estim Creat Clear Calc 86.29, Est GFR (MDRD) Non-Af 98, BUN/Creatinine Ratio 36.2 H, Glucose 115 H, Calcium 9.4, Phosphorus 4.9 H, Magnesium 2.2 Micro: Microbiology 02/19/25 14:05 Blood Culture (Wb) - Anticubital Right Blood Culture - Preliminary No growth in 48 hours. 02/19/25 13:09 Blood Culture (Wb) - No Site/Description Given Blood Culture - Preliminary No growth in 48 hours. 02/19/25 14:35 Urine, Clean Catch Urine Culture - Final Mixed Gram Pos & Gram Neg Org 02/20/25 10:35 Mucosa - Nasopharyngeal Respiratory Panel (PCR) - Final 02/19/25 13:10 Mucosa - Nose SARS-CoV-2, Influenza & RSV (PCR) - Final Physical Exam Const alert, oriented x3 and no apparent distress Constitutional Narrative: class III obesity General Appearance: cooperative HEENT normocephalic, head/scalp atraumatic, moist oral mucous membranes, oropharynx normal and gingiva normal Eyes PERRL and EOMs intact bilaterally Neck no lymphadenopathy, supple and no JVD Lymph Lymphatic: no lymphadenopathy noted, no lymphedema noted and lymphedema Resp Resp Narrative: mildly diminished breath sounds bibasally, no wheezes or crackles. On 3.5L of oxygen. Cardio regular rate, regular rhythm, S1 normal heart sound, S2 normal heart sound and no murmurs GI normal to inspection, nondistended, normoactive bowel sounds, soft to palpation,non-tender and non-distended Extremity normal capillary refill, no clubbing, cyanosis or edema and no calf tenderness General Extremity: no tenderness to palpation of joints or extremities Skin General Skin Exam: no breakdown Neuro CN's II-XII intact bilaterally, no focal motor deficits and no sensory deficits noted Motor Exam: strength 5/5 throughout and general weakness Psych thought process normal, cooperative and affect normal Appearance: appropriate Assessment & Plan Assessment/Plan (1) Atrial flutter: (2) Dyspnea on exertion: (3) Acute on chronic hypoxic respiratory failure: PLAN: Plan #Acute on chronic hypoxic respiratory failure due to acute combined heart failure * Usual was 3.5 L of oxygen at rest and 6 L with exertion. Currently requiring 4 L at rest and 10 L with exertion. She required 8 L today as her oxygen requirements had improved a bit. * CTA was negative for PE but however showed severe diffuse lung disease. * 2D echo showed EF of 40 to 50% with moderate global dysfunction of the right ventricle and mild biatrial dilation with moderate eccentric mitral valve insufficiency and a right ventricular systolic pressure of 53 mmHg. * Breathing treatments bronchodilators. Monitor fluid intake and output. * Titrate oxygen to maintain saturation above 90%. * There was concern that patient may also have sleep apnea at baseline due to her weight. Will need follow-up with pulmonology on outpatient basis. #Atrial fibrillation * EKG on admission showed atrial flutter with variable block. Currently on metoprolol 50 mg twice daily. On Eliquis. TSH was normal. * #Hypertension: Amlodipine and triamterene hydrochlorothiazide on hold. On metoprolol. Currently on IV Lasix also. #COPD: * Breathing treatments bronchodilators. Not an active exacerbation. * Wears 3 L of oxygen chronically at rest and 6 L with ambulation. * #Class III obesity: Complicates acute care, expected current prognosis. #DVT prophylaxis: Already on Eliquis. Disposition: Anticipate will be able to discharge patient home over the next 24 to 48 hours. Her walking pulse ox today showed that she required 8 L of oxygen. She is usually on 6L of oxygen at home with ambulation. Charges/Coding Visit Charges Inpatient E&M: 54141 Subs Hosp L2 02/22/25 6517 <Electronically signed by Yee Jones MD> Yee Jones MD Cosigner Signature (if applicable): CC: ~ Signed [facility] Work Phone: 1(205) 721-509304-28-2025 Progress note [facility] Medical Records Department [address] [place] [address] Progress Note 02/22/25 1411 MR#: [id number] Acct: [id number] Name: LISA LUCERO Rep #:[id number] : 1955 69 From: Yee Jones MD PCP: Dr. Phuc Martines, DO Status: M IN Location: [place] [address] Subjective Subjective Patient seen and examined. She said she felt much better today and that her breathing had improved.She denies any cough, chest pain, palpitations, dizziness, nausea or vomiting or any other symptoms. Review of systems otherwise negative. She required up to 10L with ambulation yesterday. Walking pulse ox today showed that she required 8L. She usually wears 6L at home. Objective Data Objective Data Vital Signs: Vital Signs Temp Pulse Resp BP Pulse Ox O2 Del Method O2 Flow Rate 98.2 F 78 18 120/75 105 Nasal Cannula 3.5 02/22/25 09:00 02/22/25 12:06 02/22/25 12:06 02/22/25 09:27 02/22/25 09:00 02/22/25 09:00 02/22/25 09:00 Oxygen Flow Rate (L/min) 3.5 Oxygen Delivery Method Nasal Cannula Weight: 260 lb 9.382 oz Body Mass Index (BMI) 44.7 Intake & Output: Intake and Output for Last 24 Hours 02/20/25 02/21/25 02/22/25 23:59 23:59 23:59 Intake Total 1250 / 1490 1640 / 1640 240 / 240 Output Total 1650 / 1650 2049 / 2049 700 / 700 Balance -400 / -160 -410 / -410 -460 / -460 Lab / Micro Data 02/22/25 05:39 02/22/25 05:39 Labs: Laboratory Results - last 24 hr 02/22/25 05:39: WBC 8.1, RBC 4.21, Hgb 13.2, Hct 42.6, MCV 101.2 H, MCH 31.4, MCHC 31.0 L, RDW Std Deviation 54.4 H, RDW Coeff of Karly 14.5, Plt Count 189, MPV 11.3, Sodium 144, Potassium 3.5, Chloride 96 L, Carbon Dioxide 36.4 H, Anion Gap11, BUN 22 H, Creatinine 0.60 L, Estim Creat Clear Calc 86.29, Est GFR (MDRD) Non-Af 98, BUN/Creatinine Ratio 36.2 H, Glucose 115 H, Calcium 9.4, Phosphorus 4.9H, Magnesium 2.2 Micro: Microbiology 02/19/25 14:05 Blood Culture (Wb) - Anticubital Right Blood Culture - Preliminary No growth in 48 hours. 02/19/25 13:09 Blood Culture (Wb) - No Site/Description Given Blood Culture - Preliminary No growth in 48 hours. 02/19/25 14:35 Urine, Clean Catch Urine Culture - Final Mixed Gram Pos & Gram Neg Org 02/20/25 10:35 Mucosa - Nasopharyngeal Respiratory Panel (PCR) - Final 02/19/25 13:10 Mucosa - Nose SARS-CoV-2, Influenza & RSV (PCR) - Final Physical Exam Const alert, oriented x3 and no apparent distress Constitutional Narrative: class III obesity General Appearance: cooperative HEENT normocephalic, head/scalp atraumatic, moist oral mucous membranes, oropharynx normal and gingiva normal Eyes PERRL and EOMs intact bilaterally Neck no lymphadenopathy, supple and no JVD Lymph Lymphatic: no lymphadenopathy noted, no lymphedema noted and lymphedema Resp Resp Narrative: mildly diminished breath sounds bibasally, no wheezes or crackles. On 3.5L of oxygen. Cardio regular rate, regular rhythm, S1 normal heart sound, S2 normal heart sound and no murmurs GI normal to inspection, nondistended, normoactive bowel sounds, soft to palpation,non-tender and non-distended Extremity normal capillary refill, no clubbing, cyanosis or edema and no calf tenderness General Extremity: no tenderness to palpation of joints or extremities Skin General Skin Exam: no breakdown Neuro CN's II-XII intact bilaterally, no focal motor deficits and no sensory deficits noted Motor Exam: strength 5/5 throughout and general weakness Psych thought process normal, cooperative and affect normal Appearance: appropriate Assessment & Plan Assessment/Plan (1) Atrial flutter: (2) Dyspnea on exertion: (3) Acute on chronic hypoxic respiratory failure: PLAN: Plan #Acute on chronic hypoxic respiratory failure due to acute combined heart failure * Usual was 3.5 L of oxygen at rest and 6 L with exertion. Currently requiring 4 L at rest and 10 Lwith exertion. She required 8 L today as her oxygen requirements had improved a bit. * CTA was negative for PE but however showed severe diffuse lung disease. * 2D echo showed EF of 40 to 50% with moderate global dysfunction of the right ventricle and mild biatrial dilation with moderate eccentric mitral valve insufficiency and a right ventricular systolicpressure of 53 mmHg. * Breathing treatments bronchodilators. Monitor fluid intake and output. * Titrate oxygen to maintain saturation above 90%. * There was concern that patient may also have sleep apnea at baseline due to her weight. Will needfollow-up with pulmonology on outpatient basis. #Atrial fibrillation * EKG on admission showed atrial flutter with variable block. Currently on metoprolol 50 mg twice daily. On Eliquis. TSH was normal. * #Hypertension: Amlodipine and triamterene hydrochlorothiazide on hold. On metoprolol. Currently on IV Lasix also. #COPD: * Breathing treatments bronchodilators. Not an active exacerbation. * Wears 3 L of oxygen chronically at rest and 6 L with ambulation. * #Class III obesity: Complicates acute care, expected current prognosis. #DVT prophylaxis: Already on Eliquis. Disposition: Anticipate will be able to discharge patient home over the next 24 to 48 hours. Her walking pulse ox today showed that she required 8 L of oxygen. She is usually on 6L of oxygen at home with ambulation. Charges/Coding Visit Charges Inpatient E&M: 07668 Subs Hosp L2 02/22/25 1645 Yee Jones MD Cosigner Signature (if applicable): CC: ~ Signed [facility]04-27-2025 Progress note Author Claudia Valerio [facility] Note Date/Time February 21, 2025 3:2 8pm [facility] Medical Records Department [address] [place] [address] Progress Note - Hospitalist 02/21/25 1144 MR#: [id number] Acct: [id number] Name: LISA LUCERO Rep #:[id number] : 1955 69 From: Claudia Valerio DO PCP: Dr. Phuc Martines, Status:AD M IN Location: [place] [id number] Reason for Visit Reason for Visit: Shortness of breath/lower extremity swelling Subjective Subjective Patient states she has noted her swelling seems to be improving significantly. Has had good urine output. We did discuss that her oxygen requirements are still too high to consider discharge. Will reevaluate on a daily basis. She did require 10 L with exertion. Baseline is 6 L. Objective Data Objective Data Vital Signs: Vital Signs Temp Pulse Resp BP Pulse Ox O2 Del Method O2 Flow Rate 98.1 F 96 18 126/72 H 92 Nasal Cannula 5 02/21/25 09:00 02/21/25 09:11 02/21/25 09:00 02/21/25 09:00 02/21/25 09:05 02/21/25 09:05 02/21/25 09:05 Oxygen Flow Rate (L/min) 5 Oxygen Delivery Method Nasal Cannula Weight: 117.5 kg Body Mass Index (BMI) 44.4 Intake & Output: Intake and Output for Last 24 Hours 02/19/25 02/20/25 02/21/25 23:59 23:59 23:59 Intake Total 680 / 680 1250 / 1490 680 / 680 Output Total 900 / 900 1650 / 1650 650 / 650 Balance -220 / -220 -400 / -160 30 / Lab / Micro Data 02/21/25 04:42 02/21/25 04:42 Labs: Laboratory Results - last 24 hr 02/21/25 04:42: WBC 8.9, RBC 4.02 L, Hgb 12.6, Hct 40.3, MCV 100.2 H, MCH 31.3, MCHC 31.3 L, RDW Std Deviation 54.2 H, RDW Coeff of Karly 14.6, Plt Count 226, MPV10.6, Sodium 144, Potassium 3.3, Chloride 96 L, Carbon Dioxide 39.0 H, Anion Gap9, BUN 22 H, Creatinine 0.54 L, Estim Creat Clear Calc 85.99, Est GFR (MDRD) Non-Af 101, BUN/Creatinine Ratio 40.7 H, Glucose 119 H, Calcium 8.9, Phosphorus 3.3, Magnesium 1.9 Micro: Microbiology 02/19/25 14:05 Blood Culture (Wb) - Anticubital Right Blood Culture - Preliminary No growth in 48 hours. 02/19/25 13:09 Blood Culture (Wb) - No Site/Description Given Blood Culture - Preliminary No growth in 48 hours. 02/19/25 14:35 Urine, Clean Catch Urine Culture - Final Mixed Gram Pos & Gram Neg Org 02/20/25 10:35 Mucosa - Nasopharyngeal Respiratory Panel (PCR) - Final 02/19/25 13:10 Mucosa - Nose SARS-CoV-2, Influenza & RSV (PCR) - Final Radiography Diagnostic Testing: Radiology Impression Echocardiogram 02/19/25 16:38 Interpretation Summary Borderline LV systolic function. Estimated LVEF 45-50%. Moderate global right ventricular systolic dysfunction. There is mild biatrial dilatation. Moderate (2+) eccentric mitral valve insufficiency. Mild tricuspid valve insufficiency. Right ventricular systolic pressure estimated to be 53 mmHg. The study was technically difficult. Ordering Physician: Kym Norton Performed By: Prieto Mcbride RCS Physical Exam Const alert, oriented x3, no apparent distress and well nourished; Negative for average body habitus or healthy appearing Constitutional Narrative: Morbidly obese, white female, sitting up in a chair at the bedside watching television, appears comfortable, nontoxic, currently on 5 L nasal cannula at rest HEENT head/scalp atraumatic and moist oral mucous membranes HEENT Narrative: Mallampati 3-4, no thrush Head and Scalp: normocephalic Resp normal respiratory effort, no retractions, no use of accessory muscles and clearto auscultation bilaterally Resp Narrative: Remains with crackles at bases bilaterally Auscultation: rales; Negative for rhonchi or wheezes Cardio regular rate, S1 normal heart sound, S2 normal heart sound, no murmurs, no rub, no gallops and no clicks; Negative for regular rhythm Cardio Narrative: Crackles at bases bilaterally GI normal to inspection, nondistended, normoactive bowel sounds, soft to palpation and non-tender GI Narrative: Large protuberant abdomen Extremity Extremity Narrative: Remains with trace bilateral lower extremity edema, no edema in upper extremities today, pedal pulses are 2+, radial pulses are 2+, no clubbing or cyanosis, increased wrinkling in skin lower extremities Neuro oriented x3, moves all extremities and no focal motor deficits Speech: speech normal Psych affect normal Psych Narrative: Very pleasant, interacts appropriately Assessment & Plan Assessment/Plan (1) Atrial flutter: (2) Acute on chronic hypoxic respiratory failure: (3) Shortness of breath: PLAN: Plan Acute on chronic hypoxic respiratory failure secondary to new onset acute combined heart failure - Patient on 3 L at baseline at rest and 6 L with exertion - Currently requiring 4 L at rest and required 10 L with exertion -Wean as able -Will need ambulatory pulse ox prior to discharge - CTA was negative for PE however she has pretty severe lung disease - Continue IV diuretics - Has developed some contraction alkalosis so we will go ahead and give 1 dose of Diamox 500 mg and continue Bumex -Down 2 kg thus far and patient states urine output has been good - Echocardiogram showed an EF of 40 to 50% with moderate global dysfunction of the RV and mild biatrial dilation, moderate eccentric mitral valve insufficiencyand a right ventricular systolic pressure 53 mmHg - Strict I's and O's - Continue daily weights - Continue fluid restriction - Continue sodium restriction to 3 g daily - Suspect patient has obstructive sleep apnea baseline--> consider AutoPap if patient agreeable - Patient will need outpatient cardiology follow-up and would like to follow-up at [facility]--> she stated she would get a referral from her primary care physician New onset A-fib/flutter - EKG on presentation showed flutter with variable block - Continue metoprolol 50 mg p.o. twice daily as heart rate seems to be pretty well-controlled however she does remain in A-fib - Continue Eliquis - TSH was in normal limits - Continue telemetry Essential hypertension - Hold triamterene/HCTZ - Hold home amlodipine - Continue metoprolol 50 twice daily - ongoing IV diuretics - Blood pressures are fairly well-controlled with current regimen COPD - Patient follows with pulmonary medicine at [facility] - Does not seem to be in acute exacerbation at this time - Is on chronic oxygen at 3 L at rest and 6 L with exertion - Hold home inhalers - Continue nebulizers - Continue home guaifenesin - Recommend ongoing outpatient follow-up Obesity - BMI is 44.5 - Complicates treatment, prognosis, outcomes - Highly suspect patient has obstructive sleep apnea baseline -Discussed with patient she indicated she would request an outpatient polysomnography to be done - Tolerated AutoPap well last night DVT prophylaxis -Continue Eliquis 5 mg p.o. twice daily CODE STATUS - Full code as verified on admission Charges/Coding Visit Charges Inpatient E&M: 69027 Subs Hosp L2 02/21/25 1528 <Electronically signed by Claudia Valerio DO> Cosigner Signature (if applicable): CC: ~ Signed [facility] Work Phone: 1(549) 558-536004-27-2025 Progress note [facility] Medical Records Department [address] [place] [address] Progress Note - Hospitalist 02/21/25 1144 MR#: [id number] Acct: [id number] Name: LISA LUCERO Rep #:[id number] : 1955 69 From: Claudia Valerio DO PCP: Dr. Phuc Martines, Status:AD M IN Location: [facility] [id number] Reason for Visit Reason for Visit: Shortness of breath/lower extremity swelling Subjective Subjective Patient states she has noted her swelling seems to be improving significantly. Has had good urine output. We did discuss that her oxygen requirements are still too high to consider discharge. Will reevaluate on a daily basis. She did require 10 L with exertion. Baseline is 6 L. Objective Data Objective Data Vital Signs: Vital Signs Temp Pulse Resp BP Pulse Ox O2 Del Method O2 Flow Rate 98.1 F 96 18 126/72 H 92 Nasal Cannula 5 02/21/25 09:00 02/21/25 09:11 02/21/25 09:00 02/21/25 09:00 02/21/25 09:05 02/21/25 09:05 02/21/25 09:05 Oxygen Flow Rate (L/min) 5 Oxygen Delivery Method Nasal Cannula Weight: 117.5 kg Body Mass Index (BMI) 44.4 Intake & Output: Intake and Output for Last 24 Hours 02/19/25 02/20/25 02/21/25 23:59 23:59 23:59 Intake Total 680 / 680 1250 / 1490 680 / 680 Output Total 900 / 900 1650 / 1650 650 / 650 Balance -220 / -220 -400 / -160 30 / 30 Lab / Micro Data 02/21/25 04:42 02/21/25 04:42 Labs: Laboratory Results - last 24 hr 02/21/25 04:42: WBC 8.9, RBC 4.02 L, Hgb 12.6, Hct 40.3, MCV 100.2 H, MCH 31.3, MCHC 31.3 L, RDW Std Deviation 54.2 H, RDW Coeff of Karly 14.6, Plt Count 226, MPV10.6, Sodium 144, Potassium 3.3, Chloride 96 L, Carbon Dioxide 39.0 H, Anion Gap9, BUN 22 H, Creatinine 0.54 L, Estim Creat Clear Calc 85.99, Est GFR (MDRD) Non-Af 101, BUN/Creatinine Ratio 40.7 H, Glucose 119 H, Calcium 8.9, Phosphorus 3.3, Magnesium 1.9 Micro: Microbiology 02/19/25 14:05 Blood Culture (Wb) - Anticubital Right Blood Culture - Preliminary No growth in 48 hours. 02/19/25 13:09 Blood Culture (Wb) - No Site/Description Given Blood Culture - Preliminary No growth in 48 hours. 02/19/25 14:35 Urine, Clean Catch Urine Culture - Final Mixed Gram Pos & Gram Neg Org 02/20/25 10:35 Mucosa - Nasopharyngeal Respiratory Panel (PCR) - Final 02/19/25 13:10 Mucosa - Nose SARS-CoV-2, Influenza & RSV (PCR) - Final Radiography Diagnostic Testing: Radiology Impression Echocardiogram 02/19/25 16:38 Interpretation Summary Borderline LV systolic function. Estimated LVEF 45-50%. Moderate global right ventricular systolic dysfunction. There is mild biatrial dilatation. Moderate (2+) eccentric mitral valve insufficiency. Mild tricuspid valve insufficiency. Right ventricular systolic pressure estimated to be 53 mmHg. The study was technically difficult. Ordering Physician: Kym Norton Performed By: Prieto Mcbride, AROLDO Physical Exam Const alert, oriented x3, no apparent distress and well nourished; Negative for average body habitus or healthy appearing Constitutional Narrative: Morbidly obese, white female, sitting up in a chair at the bedside watching television, appears comfortable, nontoxic, currently on 5 L nasal cannula at rest HEENT head/scalp atraumatic and moist oral mucous membranes HEENT Narrative: Mallampati 3-4, no thrush Head and Scalp: normocephalic Resp normal respiratory effort, no retractions, no use of accessory muscles and clearto auscultation bilaterally Resp Narrative: Remains with crackles at bases bilaterally Auscultation: rales; Negative for rhonchi or wheezes Cardio regular rate, S1 normal heart sound, S2 normal heart sound, no murmurs, no rub, no gallops and no clicks; Negative for regular rhythm Cardio Narrative: Crackles at bases bilaterally GI normal to inspection, nondistended, normoactive bowel sounds, soft to palpation and non-tender GI Narrative: Large protuberant abdomen Extremity Extremity Narrative: Remains with trace bilateral lower extremity edema, no edema in upper extremities today, pedal pulses are 2+, radial pulses are 2+, no clubbing or cyanosis, increased wrinkling in skin lower extremities Neuro oriented x3, moves all extremities and no focal motor deficits Speech: speech normal Psych affect normal Psych Narrative: Very pleasant, interacts appropriately Assessment & Plan Assessment/Plan (1) Atrial flutter: (2) Acute on chronic hypoxic respiratory failure: (3) Shortness of breath: PLAN: Plan Acute on chronic hypoxic respiratory failure secondary to new onset acute combined heart failure - Patient on 3 L at baseline at rest and 6 L with exertion - Currently requiring 4 L at rest and required 10 L with exertion -Wean as able -Will need ambulatory pulse ox prior to discharge - CTA was negative for PE however she has pretty severe lung disease - Continue IV diuretics - Has developed some contraction alkalosis so we will go ahead and give 1 dose of Diamox 500 mg andcontinue Bumex -Down 2 kg thus far and patient states urine output has been good - Echocardiogram showed an EF of 40 to 50% with moderate global dysfunction of the RV and mild biatrial dilation, moderate eccentric mitral valve insufficiencyand a right ventricular systolic pressure 53 mmHg - Strict I's and O's - Continue daily weights - Continue fluid restriction - Continue sodium restriction to 3 g daily - Suspect patient has obstructive sleep apnea baseline--> consider AutoPap if patient agreeable - Patient will need outpatient cardiology follow-up and would like to follow-up at [facility]--> she stated she would get a referral from her primary care physician New onset A-fib/flutter - EKG on presentation showed flutter with variable block - Continue metoprolol 50 mg p.o. twice daily as heart rate seems to be pretty well-controlled however she does remain in A-fib - Continue Eliquis - TSH was in normal limits - Continue telemetry Essential hypertension - Hold triamterene/HCTZ - Hold home amlodipine - Continue metoprolol 50 twice daily - ongoing IV diuretics - Blood pressures are fairly well-controlled with current regimen COPD - Patient follows with pulmonary medicine at [facility] - Does not seem to be in acute exacerbation at this time - Is on chronic oxygen at 3 L at rest and 6 L with exertion - Hold home inhalers - Continue nebulizers - Continue home guaifenesin - Recommend ongoing outpatient follow-up Obesity - BMI is 44.5 - Complicates treatment, prognosis, outcomes - Highly suspect patient has obstructive sleep apnea baseline -Discussed with patient she indicated she would request an outpatient polysomnography to be done - Tolerated AutoPap well last night DVT prophylaxis -Continue Eliquis 5 mg p.o. twice daily CODE STATUS - Full code as verified on admission Charges/Coding Visit Charges Inpatient E&M: 60727 Subs Hosp L2 02/21/25 1528 Cosigner Signature (if applicable): CC: ~ Signed [facility]04-26-2025 Progress note Author Claudia Valerio [facility] Note Date/Time February 20, 2025 2:4 4pm [facility] Medical Records Department [address] [place] [address] Progress Note - Hospitalist 02/20/25806 MR#: [id number] Acct: [id number] Name: LISA LUCERO Rep #:[id number] : 1955 69 From: Claudia Valerio DO PCP: Dr. Phuc Martines, DO Status:AD M IN Location: [facility] [id number] Reason for Visit Reason for Visit: Shortness of breath/lower extremity swelling Subjective Subjective Patient states she notices that her swelling is better. She stated she had sometingling in her hands which she thought was related to carpal tunnel but that isgone since her swelling is better as well. Still on oxygen above her baseline of 3 L. But overall states she is much better than on presentation. Heart rates are better controlled overall. Objective Data Objective Data Vital Signs: Vital Signs Temp Pulse Resp BP Pulse Ox O2 Del Method O2 Flow Rate 97.8 F 97 18 118/67 98 Nasal Cannula 6 02/20/25 03:00 02/20/25 03:00 02/20/25 03:00 02/20/25 03:00 02/20/25 03:00 02/20/25 03:00 02/20/25 03:00 Oxygen Flow Rate (L/min) 6 Oxygen Delivery Method Nasal Cannula Weight: 119.5 kg Body Mass Index (BMI) 45.2 Intake & Output: Intake and Output for Last 24 Hours 02/18/25 02/19/25 02/20/25 23:59 23:59 23:59 Intake Total 680 / 680 400 / 400 Output Total 900 / 900 Balance -220 / -220 400 / 400 Lab / Micro Data 02/20/25 05:01 02/20/25 05:01 Labs: Laboratory Results - last 24 hr 02/19/25 13:09: WBC 8.6, RBC 4.16 L, Hgb 13.0, Hct 41.2, MCV 99.0, MCH 31.3, MCHC 31.6 L, RDW Std Deviation 53.2 H, RDW Coeff of Karly 14.6, Plt Count 231, MPV 10.4, Immature Gran % (Auto) 0.200, Neut % (Auto) 80.0 H, Lymph % (Auto) 9.8 L, [place] % (Auto) 8.5, Eos % (Auto) 1.0, Baso % (Auto) 0.5, Absolute Neuts (auto) 6.9, Absolute Lymphs (auto) 0.84, Nucleated RBC % 0, PT 13.4, INR 1.0, APTT 27.1, Sodium 142, Potassium 3.6, Chloride 96 L, Carbon Dioxide 34.4 H, Anion Gap11, BUN 15, Creatinine 0.55 L, Estim Creat Clear Calc 87.97, Est GFR (MDRD) Non-Af 100, BUN/Creatinine Ratio 27.9 H, Glucose 116 H, Lactic Acid 1.5, Calcium 9.4, Total Bilirubin 0.69, AST 29, ALT 45 H, Alkaline Phosphatase 80, Troponin THigh Sens < 6, NT pro BNP II 529, Total Protein 7.2, Albumin 4.0, Globulin 3.3, Albumin/Globulin Ratio 1.2 02/19/25 14:35: Urine Color Straw, Urine Clarity Clear, Urine pH 6.0, Ur Specific [place] 1.010, Urine Protein Negative, Urine Glucose (UA) Normal, UrineKetones Negative, Urine Occult Blood Negative, Urine Nitrite Negative, Urine Bilirubin Negative, Urine Urobilinogen Normal, Ur Leukocyte Esterase 25 H, UrineRBC 0 SEEN, Urine WBC 0-5 SEEN, Ur Squamous Epith Cells 0-5 SEEN, Urine Bacteria0 SEEN, Urine Mucus 0 SEEN 02/19/25 15:45: Troponin T Hi Sens 2 Hr < 6 02/19/25 17:54: Troponin T Hi Sens 4Hr < 6 02/20/25 05:01: WBC 8.2, RBC 3.97 L, Hgb 12.4, Hct 39.2, MCV 98.7, MCH 31.2, MCHC 31.6 L, RDW Std Deviation 52.0 H, RDW Coeff of Karly 14.4, Plt Count 223, MPV 11.2, Sodium 142, Potassium 3.8, Chloride 95 L, Carbon Dioxide 34.3 H, Anion Gap13, BUN 17, Creatinine 0.56 L, Estim Creat Clear Calc 86.85, Est GFR (MDRD) Non-Af 100, BUN/Creatinine Ratio 30.9 H, Glucose 141 H, Calcium 8.9, Magnesium 1.9, Total Bilirubin 0.43, AST 27, ALT 42 H, Alkaline Phosphatase 72, Total Protein 7.0, Albumin 3.8, Globulin 3.2, Albumin/Globulin Ratio 1.2, Triglycerides 61, Cholesterol 183, LDL Cholesterol, Calc 101, VLDL Cholesterol 12, HDL [id number], Cholesterol/HDL Ratio 2.63, TSH 0.626 Micro: Microbiology 02/19/25 13:10 Mucosa - Nose SARS-CoV-2, Influenza & RSV (PCR) - Final Radiography Diagnostic Testing: Radiology Impression Chest X-Ray 02/19/25 13:40 IMPRESSION: Pulmonary venous congestive changes. Reading Location: [facility] Physical Exam Const alert, oriented x3, no apparent distress and well nourished; Negative for average body habitus or healthy appearing Constitutional Narrative: Morbidly obese, white female, sitting up in bed, watching television and talkingon the phone. Hangs up upon my arrival, appears comfortable, nontoxic, remains on 6 L nasal cannula at this time but no dyspnea on conversation HEENT head/scalp atraumatic and moist oral mucous membranes HEENT Narrative: Mallampati 3-4, no thrush Head and Scalp: normocephalic Resp normal respiratory effort, no retractions, no use of accessory muscles and clearto auscultation bilaterally Resp Narrative: Crackles at bases bilaterally Auscultation: rales; Negative for rhonchi or wheezes Cardio regular rate, S1 normal heart sound, S2 normal heart sound, no murmurs, no rub, no gallops and no clicks; Negative for regular rhythm Cardio Narrative: Crackles at bases bilaterally GI normal to inspection, nondistended, normoactive bowel sounds, soft to palpation and non-tender GI Narrative: Large protuberant abdomen Extremity Extremity Narrative: Trace bilateral lower extremity edema, no edema in upper extremities today, pedal pulses are 2+, radial pulses are 2+, no clubbing or cyanosis Neuro oriented x3, moves all extremities and no focal motor deficits Speech: speech normal Psych affect normal Psych Narrative: Very pleasant, interacts appropriately Assessment & Plan Assessment/Plan (1) Atrial flutter: (2) Acute on chronic hypoxic respiratory failure: (3) Shortness of breath: PLAN: Plan Acute on chronic hypoxic respiratory failure secondary to new onset CHF of unknown type - Patient on 3 L at baseline - Currently requiring 6 L -Wean as able -Will need amatory pulse ox prior to discharge - Chest x-ray was consistent with venous pulmonary congestion and patient has increased bilateral lower extremity edema - Continue IV diuretics - Echocardiogram is pending - Strict I's and O's - Continue daily weights - Continue fluid restriction - Add sodium restriction to 3 g daily - Suspect patient has obstructive sleep apnea baseline--> consider AutoPap if patient agreeable - COVID/flu/RSV is negative next-check respiratory viral panel - Check CTA of the chest New onset A-fib/flutter - EKG on presentation showed flutter with variable block - Continue Eliquis - Echocardiogram pending - Heart rates are better - Increase metoprolol to 50 twice daily to maximize rate control - TSH was in normal limits - Continue telemetry Essential hypertension - Hold triamterene/HCTZ - Hold home amlodipine - Metoprolol added for heart rate control and will increase dose to 25 p.o. twice daily - ongoing IV diuretics COPD - Patient follows with pulmonary medicine at [facility] - Does not seem to be in acute exacerbation at this time - Is on chronic oxygen at 3 L - Hold home inhalers - Continue nebulizers - Continue home guaifenesin - Recommend ongoing outpatient follow-up Obesity - BMI is 45.2 - Complicates treatment, prognosis, outcomes - Highly suspect patient has obstructive sleep apnea baseline - Will discuss and see if she is willing to try AutoPap while hospitalized as this would help offload her heart some DVT prophylaxis -Continue Eliquis 5 mg p.o. twice daily CODE STATUS - Full code as verified on admission Charges/Coding Visit Charges Inpatient E&M: 43058 Subs Hosp L2 02/20/25 1444 <Electronically signed by Claudia Valerio DO> Cosigner Signature (if applicable): CC: ~ Signed [facility] Work Phone: [phone] 889-122704-26-2025 Progress note [facility] Medical Records Department [address] [place] [address] Progress Note - Hospitalist 02/20/25 0807 MR#: [id number] Acct: [id number] Name: LISA LUCERO Rep #:[id number] : 1955 69 From: Claudia Valerio DO PCP: Dr. Phuc Martines, Status:AD M IN Location: [place] [id number] Reason for Visit Reason for Visit: Shortness of breath/lower extremity swelling Subjective Subjective Patient states she notices that her swelling is better. She stated she had sometingling in her hands which she thought was related to carpal tunnel but that isgone since her swelling is better as well. Still on oxygen above her baseline of 3 L. But overall states she is much better than on presentation. Heart rates are better controlled overall. Objective Data Objective Data Vital Signs: Vital Signs Temp Pulse Resp BP Pulse Ox O2 Del Method O2 Flow Rate 97.8 F 97 18 118/67 98 Nasal Cannula 6 02/20/25 03:00 02/20/25 03:00 02/20/25 03:00 02/20/25 03:00 02/20/25 03:00 02/20/25 03:00 02/20/25 03:00 Oxygen Flow Rate (L/min) 6 Oxygen Delivery Method Nasal Cannula Weight: 119.5 kg Body Mass Index (BMI) 45.2 Intake & Output: Intake and Output for Last 24 Hours 02/18/25 02/19/25 02/20/25 23:59 23:59 23:59 Intake Total 680 / 680 400 / 400 Output Total 900 / 900 Balance -220 / -220 400 / 400 Lab / Micro Data 02/20/25 05:01 02/20/25 05:01 Labs: Laboratory Results - last 24 hr 02/19/25 13:09: WBC 8.6, RBC 4.16 L, Hgb 13.0, Hct 41.2, MCV 99.0, MCH 31.3, MCHC 31.6 L, RDW Std Deviation 53.2 H, RDW Coeff of Karly 14.6, Plt Count 231, MPV 10.4, Immature Gran % (Auto) 0.200, Neut % (Auto) 80.0 H, Lymph % (Auto) 9.8 L, [place] % (Auto) 8.5, Eos % (Auto) 1.0, Baso % (Auto) 0.5, Absolute Neuts (auto) 6.9, Absolute Lymphs (auto) 0.84, Nucleated RBC % 0, PT 13.4, INR 1.0, APTT 27.1, Sodium 142, Potassium 3.6, Chloride 96 L, Carbon Dioxide 34.4 H, Anion Gap11, BUN 15, Creatinine 0.55L, Estim Creat Clear Calc 87.97, Est GFR (MDRD) Non-Af 100, BUN/Creatinine Ratio 27.9 H, Glucose 116 H, Lactic Acid 1.5, Calcium 9.4, Total Bilirubin 0.69, AST 29, ALT 45 H, Alkaline Phosphatase 80, Troponin THigh Sens < 6, NT pro BNP II 529, Total Protein 7.2, Albumin 4.0, Globulin 3.3, Albumin/Globulin Ratio 1.2 02/19/25 14:35: Urine Color Straw, Urine Clarity Clear, Urine pH 6.0, Ur Specific [place] 1.010, Urine Protein Negative, Urine Glucose (UA) Normal, UrineKetones Negative, Urine Occult Blood Negative,Urine Nitrite Negative, Urine Bilirubin Negative, Urine Urobilinogen Normal, Ur Leukocyte Esterase 25 H, UrineRBC 0 SEEN, Urine WBC 0-5 SEEN, Ur Squamous Epith Cells 0-5 SEEN, Urine Bacteria0 SEEN, Urine Mucus 0 SEEN 02/19/25 15:45: Troponin T Hi Sens 2 Hr < 6 02/19/25 17:54: Troponin T Hi Sens 4Hr < 6 02/20/25 05:01: WBC 8.2, RBC 3.97 L, Hgb 12.4, Hct 39.2, MCV 98.7, MCH 31.2, MCHC 31.6 L, RDW Std Deviation 52.0 H, RDW Coeff of Karly 14.4, Plt Count 223, MPV 11.2, Sodium 142, Potassium 3.8, [id number] L, Carbon Dioxide 34.3 H, Anion Gap13, BUN 17, Creatinine 0.56 L, Estim Creat Clear Calc 86.85, Est GFR (MDRD) Non-Af 100, BUN/Creatinine Ratio 30.9 H, Glucose 141 H, Calcium 8.9, Magnesium 1.9, Total Bilirubin 0.43, AST 27, ALT 42 H, Alkaline Phosphatase 72, Total Protein 7.0, Albumin 3.8, Globulin 3.2, Albumin/Globulin Ratio 1.2, Triglycerides 61, Cholesterol 183, LDL Cholesterol, Calc 101, VLDL Cholesterol 12, HDL [id number], Cholesterol/HDL Ratio 2.63, TSH 0.626 Micro: Microbiology 02/19/25 13:10 Mucosa - Nose SARS-CoV-2, Influenza & RSV (PCR) - Final Radiography Diagnostic Testing: Radiology Impression Chest X-Ray 02/19/25 13:40 IMPRESSION: Pulmonary venous congestive changes. Reading Location: [facility] Physical Exam Const alert, oriented x3, no apparent distress and well nourished; Negative for average body habitus or healthy appearing Constitutional Narrative: Morbidly obese, white female, sitting up in bed, watching television and talkingon the phone. Olivia upon my arrival, appears comfortable, nontoxic, remains on 6 L nasal cannula at this time but nodyspnea on conversation HEENT head/scalp atraumatic and moist oral mucous membranes HEENT Narrative: Mallampati 3-4, no thrush Head and Scalp: normocephalic Resp normal respiratory effort, no retractions, no use of accessory muscles and clearto auscultation bilaterally Resp Narrative: Crackles at bases bilaterally Auscultation: rales; Negative for rhonchi or wheezes Cardio regular rate, S1 normal heart sound, S2 normal heart sound, no murmurs, no rub, no gallops and no clicks; Negative for regular rhythm Cardio Narrative: Crackles at bases bilaterally GI normal to inspection, nondistended, normoactive bowel sounds, soft to palpation and non-tender GI Narrative: Large protuberant abdomen Extremity Extremity Narrative: Trace bilateral lower extremity edema, no edema in upper extremities today, pedal pulses are 2+, radial pulses are 2+, no clubbing or cyanosis Neuro oriented x3, moves all extremities and no focal motor deficits Speech: speech normal Psych affect normal Psych Narrative: Very pleasant, interacts appropriately Assessment & Plan Assessment/Plan (1) Atrial flutter: (2) Acute on chronic hypoxic respiratory failure: (3) Shortness of breath: PLAN: Plan Acute on chronic hypoxic respiratory failure secondary to new onset CHF of unknown type - Patient on 3 L at baseline - Currently requiring 6 L -Wean as able -Will need amatory pulse ox prior to discharge - Chest x-ray was consistent with venous pulmonary congestion and patient has increased bilateral lower extremity edema - Continue IV diuretics - Echocardiogram is pending - Strict I's and O's - Continue daily weights - Continue fluid restriction - Add sodium restriction to 3 g daily - Suspect patient has obstructive sleep apnea baseline--> consider AutoPap if patient agreeable - COVID/flu/RSV is negative next-check respiratory viral panel - Check CTA of the chest New onset A-fib/flutter - EKG on presentation showed flutter with variable block - Continue Eliquis - Echocardiogram pending - Heart rates are better - Increase metoprolol to 50 twice daily to maximize rate control - TSH was in normal limits - Continue telemetry Essential hypertension - Hold triamterene/HCTZ - Hold home amlodipine - Metoprolol added for heart rate control and will increase dose to 25 p.o. twice daily - ongoing IV diuretics COPD - Patient follows with pulmonary medicine at [facility] - Does not seem to be in acute exacerbation at this time - Is on chronic oxygen at 3 L - Hold home inhalers - Continue nebulizers - Continue home guaifenesin - Recommend ongoing outpatient follow-up Obesity - BMI is 45.2 - Complicates treatment, prognosis, outcomes - Highly suspect patient has obstructive sleep apnea baseline - Will discuss and see if she is willing to try AutoPap while hospitalized as this would help offload her heart some DVT prophylaxis -Continue Eliquis 5 mg p.o. twice daily CODE STATUS - Full code as verified on admission Charges/Coding Visit Charges Inpatient E&M: 32442 Subs Hosp L2 02/20/25 1446 Cosigner Signature (if applicable): CC: ~ Signed [facility]04-26-2025 Radiology Diagnostic study note [facility] Imaging Services [address] [place], [place] [id number] CTA Chest W/WO Contrast MR#: [id number] Acct: [id number] Name: LISA LUCERO Rep #: [id number] : 1955 F 69 From: Bev Drummond MD PCP: Dr. Phuc Martines, DO Status: AD M IN Study:CTA Chest W/WO Contrast Date of Exam: 02/20/25 Exam# [id number] Ordering Dr: Kinza Valerio DO EXAM: CT Angiography Chest Without and With Intravenous Contrast CLINICAL INDICATION: HYPOXIA TECHNIQUE: Axial computed tomographic angiography images of the chest without and with intravenous contrast. This CT exam was performed using one or more of the following dose reduction techniques: automated exposure control,adjustment of the mA and/or kV according to patient size, and/or use of iterative reconstruction technique. MIP reconstructed images were created and reviewed. COMPARISON: No relevant prior studies available. FINDINGS: PULMONARY ARTERIES: Unremarkable. No pulmonary embolism. AORTA: No acute findings. No thoracic aortic aneurysm. LUNGS AND PLEURAL SPACES: Lung emphysema/COPD with bibasilar atelectasis or scarring and bilateral apical scarring, some of which has of the nodular configuration. Repeat CT in 6 months is recommended. No mass. No significant effusion. No pneumothorax. HEART: Unremarkable. No cardiomegaly. No significant pericardial effusion. No evidence of RV dysfunction. BONES/JOINTS: No acute fracture. No dislocation. SOFT TISSUES: Unremarkable. LYMPH NODES: Unremarkable. No enlarged lymph nodes. CT/CTA Chest W/WO Contrast IMPRESSION: 1. No pulmonary embolism. 2. Lung emphysema/COPD with bibasilar atelectasis or scarring and bilateral apical scarring, some of which has of the nodular configuration. Repeat CT in 6 months is recommended. Reading Location: [facility] CC: Dr. Phuc Martines, DO; Dr. Claudia Valerio, DO ~ Personal Lines Account Manager: Signed [facility]04-25-2025 History and physical note Author Kym Norton [facility] Note Date/Time February 19, 2025 4:1 3pm [facility] Medical Records Department [address] [place] [id number] H&P Exam - Hospitalist 02/19/25 1548 MR#: [id number] Acct: [id number] Name: LISA LUCERO Rep #:[id number] : 1955 69 From: Kym Norton MD PCP: Dr. Phuc Martines DO Status:AD M IN Location: [facility] [id number] HPI - General General Date of Admission: 02/19/25 Date of Service: 02/19/25 Chief Complaint: Increase shortness of breath and lower extremity swelling HPI Narrative LISA LUCERO, is a 69-year-old female with a history of COPD on 3 L nasal cannula and hypertension who presented to [facility] ED 02/19/2025 with increased shortness of breath particularly on exertion for the past several days as well as increased bilateral lower extremity swelling this past week and conversational dyspnea. On arrival patient dropped down to 85% on5 L of nasal cannula with respiratory rate up to 28, blood pressure 120/106 witha heart rate of 116 and temperature 99.2. CBC and BMP fairly benign however chest x-ray did report pulmonary venous congestive changes. Patient given IV Lasix. Patient also noted to be in what appeared to be A-fib versus flutter with variable block and was given 5 of IV Lopressor due to a heart rate in the 120s. Hospitalist contacted for admission for possible new onset heart failure. Patient evaluated with friend at bedside, patient reports her breathing has gotten worse over the past year and she had a lung cancer screening which showedinflammation that developed but then subsequently improved and she reports is being monitored but they were not sure what caused it. She also notes for the last 7 to 10 days she had increased swelling in her lower extremities with increasing shortness of breath on exertion, denies overt chest pain but sometimes when she lays on her left side will have a GIB feeling on the left side of her back, this happened 3 times over several months. Has a little bit of a dry cough but minimal, does have some nasal congestion and reports when shewakes up she has some pasty feeling on her tongue. Denies history of ROXY and reports she did a previous sleep study which was negative. Does endorse drinking several mixed drinks a day and estimates that it equals about 4 shots aday. She does not note any history of withdrawal symptoms. [facility] Medical History COPD (chronic obstructive pulmonary disease) Home Medications ?Medication ?Instructions ?Recorded ?Last Taken ?Type Oxygen, Home [Home Oxygen] 2 - 4 lpm QHS 11/13/1701/27 History ascorbic acid (vitamin C) 500 mg 500 mg PO DAILY 11/1302/18/25 History capsule albuterol sulfate 90 mcg/actuation 2 inh inhalation Q6 H PRN shortness 02/19/25 Unknown History breath activated powder inhaler of breath amlodipine 10 mg tablet 10 mg PO DAILY 02/19/2501/27 History fluticasone fur. 200 mcg-umeclid 1 ea inhalation DAILY 02/19/25 02/19/25 History 62.5 mcg-vilant 25 mcg inhalat.powder (Trelegy Ellipta) guaifenesin 1,200 mg tablet, 1,200 mg PO BID PRN cough 02/19/25 Unknown History extended release 12 hr (Mucus Relief ER) ipratropium 0.5 mg-albuterol 3 mg 3 ml inhalation Q6H PRN shortness 02/19/25 02/19/25 History (2.5 mg base)/3 mL nebulization of breath soln multivitamin (Daily Multi-Vitamin 1 tab PO DAILY 02/1902/18/25 History tablet) sodium chloride 0.65 % nasal spray 1 spray intranasal BID PRN dry 02/19/25 Unknown History aerosol (Oxford Saline) nasal passages triamcinolone acetonide 0.5 % 1 applic topical BID PRN itching 02/19/25 Unknown History topical cream triamterene 37.5 1 cap PO DAILY 02/19/25 04/02/19 History mg-hydrochlorothiazide 25 mg capsule Allergy/AdvReac Type Severity Reaction Status Date / Time ibuprofen (From Advil) Allergy Mild Hives Verified 02/19/25 13:14 Surgical History Hx of inguinal herniorrhaphy Social History Smoking Status: Former smoker ROS ROS Narrative General: Denies fever/chills HENT: Denies headache, has some chronic nasal congestion, denies sore throat EYES: Denies changes in vision Resp: Denies significant cough, occasional dry cough, has had increased shortness of breath over the past year but worse over the past week Cardiac: Denies chest pain, sometimes will have some left-sided back pain when she is laying there GI: Symptoms some left abdominal pain which she attributes to a known splenic cyst, denies changes in bowel, denies nausea/vomiting : Denies changes in urination Extremity: Increased swelling lower extremities over the past 7 to 10 days MSK: Denies weakness Neuro: Denies any numbness/tingling Heme: Denies any bleeding or bruising Skin: Denies rashes Psychiatric: No complaints voiced Vital Signs Vital Signs Vital Signs: 02/19/25 12:52 02/19/25 13:11 02/19/25 13:13 Temperature 99.2 F H Temperature Source Oral Pulse Rate 116 H Respiratory Rate 20 H Respiratory Effort Short of Breath Respiratory Pattern Blood Pressure 120/106 H Blood Pressure Mean 110 Pulse Ox 91 85 Oxygen Delivery Method Nasal Cannula Nasal Cannula Oxygen Flow Rate (L/min) 6 5 02/19/25 13:20 02/19/25 13:20 02/19/25 13:26 Temperature Temperature Source Pulse Rate 106 H 96 Respiratory Rate 22 H 24 H Respiratory Effort Respiratory Pattern Tachypnea Blood Pressure 130/67 H Blood Pressure Mean 88 Pulse Ox 97 98 Oxygen Delivery Method Nasal Cannula Nasal Cannula Oxygen Flow Rate (L/min) 6 6 02/19/25 13:53 02/19/25 14:43 02/19/25 15:07 Temperature 99.2 F H 98.8 F 98.8 F Temperature Source Oral Oral Pulse Rate 115 H 121 H 96 Respiratory Rate 28 H 24 H 18 Respiratory Effort Respiratory Pattern Blood Pressure 159/74 H 137/118 H 125/80 H Blood Pressure Mean 102 124 95 Pulse Ox 96 91 91 Oxygen Delivery Method Nasal Cannula Nasal Cannula Oxygen Flow Rate (L/min) 6 5 Weight Weight: 122.1 kg Body Mass Index (BMI) 46.2 Physical Exam Narrative General: Alert, oriented HEENT: Atraumatic, normocephalic Eyes: Anicteric, normal conjunctiva, extraocular movements grossly intact Neck: Supple Respiratory: Increased respiratory effort and diminished bilaterally with poor airflow Cardiovascular: Irregularly irregular GI: Soft, nontender, nondistended Extremities: 1+ bilateral lower extremity edema Musculoskeletal: Moving all extremities Neuro: No overt focal neurological deficits Skin: No rashes appreciated Psych: Cooperative Results Lab / Micro Data 02/19/25 13:09 02/19/25 13:09 Labs: Laboratory Results - last 24 hr 02/19/25 13:09: WBC 8.6, RBC 4.16 L, Hgb 13.0, Hct 41.2, MCV 99.0, MCH 31.3, MCHC 31.6 L, RDW Std Deviation 53.2 H, RDW Coeff of Karly 14.6, Plt Count 231, MPV 10.4, Immature Gran % (Auto) 0.200, Neut % (Auto) 80.0 H, Lymph % (Auto) 9.8 L, [place] % (Auto) 8.5, Eos % (Auto) 1.0, Baso % (Auto) 0.5, Absolute Neuts (auto) 6.9, Absolute Lymphs (auto) 0.84, Nucleated RBC % 0, PT 13.4, INR 1.0, APTT 27.1, Sodium 142, Potassium 3.6, Chloride 96 L, Carbon Dioxide 34.4 H, Anion Gap11, BUN 15, Creatinine 0.55 L, Estim Creat Clear Calc 87.97, Est GFR (MDRD) Non-Af 100, BUN/Creatinine Ratio 27.9 H, Glucose 116 H, Lactic Acid 1.5, Calcium 9.4, Total Bilirubin 0.69, AST 29, ALT 45 H, Alkaline Phosphatase 80, Troponin THigh Sens < 6, NT pro BNP II 529, Total Protein 7.2, Albumin 4.0, Globulin 3.3, Albumin/Globulin Ratio 1.2 02/19/25 14:35: Urine Color Straw, Urine Clarity Clear, Urine pH 6.0, Ur Specific [place] 1.010, Urine Protein Negative, Urine Glucose (UA) Normal, UrineKetones Negative, Urine Occult Blood Negative, Urine Nitrite Negative, Urine Bilirubin Negative, Urine Urobilinogen Normal, Ur Leukocyte Esterase 25 H, UrineRBC 0 SEEN, Urine WBC 0-5 SEEN, Ur Squamous Epith Cells 0-5 SEEN, Urine Bacteria0 SEEN, Urine Mucus 0 SEEN Micro: Microbiology 02/19/25 13:10 Mucosa - Nose SARS-CoV-2, Influenza & RSV (PCR) - Final Imaging Radiology Impression Chest X-Ray 02/19/25 13:40 IMPRESSION: Pulmonary venous congestive changes. Reading Location: [facility] Assessment & Plan Assessment/Plan (1) Acute on chronic hypoxic respiratory failure: PLAN: Plan # Acute on chronic hypoxic respiratory failure in setting of COPD on 3 L home [id number] secondary to new onset heart failure -Patient had 85% on 5 L in the ED, improved to 88% on 5 L during my evaluation, initially was in respiratory distress that improved to the point patient was no longer conversationally dyspneic on my exam -Chest x-ray with pulmonary venous congestive changes and patient with increasing bilateral lower extremity edema -Admit to telemetry -proBNP 529 however patient's chest x-ray, lower extremity edema, clinical picture consistent with fluid overload -CXR with pulmonary congestive changes -Continue IV lasix - No previous echo available in our system - Echo ordered -Daily weights, I's and O's -Fluid restriction, heart healthy diet - Patient 88 to 91% on 5 L nasal cannula however she is sitting up in bed and does have increased work of breathing but no longer conversationally dyspneic and is slowly improving, discussed that if her O2 sat would drop or remain low despite interventions she would likely need BiPAP even if only temporary, patient agreeable # New onset A-fib/flutter -EKG on presentation showed what appeared to be a flutter with variable block, patient with heart rate up in the 120s and was given IV Lopressor in the ED, patient appeared irregular on telemetry and appeared to be A-fib and repeat EKG also with questionable flutter - May now be a new onset heart failure due to patient being in what appears to be fib/flutter and initially had elevated rate up to 120s, difficult to tell if patient's elevated rate caused the fluid overload or if patient's hypoxia causedher to be tachycardic but she did seem to improve with Lopressor -Check TSH - Start Eliquis - Will start low-dose of metoprolol and titrate as needed, will avoid diltiazem if possible due to concern for new onset heart failure with exacerbation, if needed could always temporarily switch to amiodarone based on patient's clinicalstatus -Check echo # COPD - Continue home inhalers - Does not seem to be in exacerbation, seems that this is due to fluid overload - Incentive spirometer #Hypertension - Will hold patient's home antihypertensives to allow room for diuresis - Will also be starting low-dose metoprolol as above #Increased etoh intake -Patient drinks the equivalent of about 4 shots daily, does not note any historyof alcohol withdrawal but will place patient on CIWA in an abundance of caution with low-dose coverage #Morbid obesity -BMI documented as 46.2 kg/m? at time of admission -Complicates treatment, prognosis, outcomes -Recommend weight loss and lifestyle changes #DVT ppx: Starting on Eliquis as above Kym Norton MD Time spent in the patient's overall evaluation, decision-making process, review of diagnostic data, adjustment of management, discussion with other providers, nursing and ancillary staff involved in patient's care documentation, 78 Minutes Charges/Coding Visit Charges Inpatient E&M: 65994 Init Hosp L3 02/19/25 1613 <Electronically signed by Kym Norton MD> Cosigner Signature (if applicable): CC: Dr. Phuc Martines DO; Dr. Kym Norton MD~ Signed [facility] Work Phone: 1(543) 273-620504-25-2025 Evaluation note* Diagnosis Onset Date Resolution Status Admit Date Atrial flutter acute January 3:53pm Dyspnea on exertion acute February 19, 2025 3:53pm Shortness of breath acute February 19, 2025 3:53pm Acute on chronic hypoxic respiratory failure chronic February 19, 2025 3:53pm [facility] Work Phone: 1(948) 391-438704-25-2025 Evaluation note* Diagnosis Onset Date Resolution Status Admit Date Atrial flutter acute January 3:53pm Shortness of breath acute February 19, 2025 3:53pm Acute on chronic hypoxic respiratory failure resolved February 19, 2025 3:53pm Dyspnea on exertion resolved February 19, 2025 3:53pm Atrial flutter acute March 30, 2025 11:24am [facility] Work Phone: 1(802) 949-812104-25-2025 Discharge summary Author Linwood Ivy [facility] Note Date/Time February 19, 2025 3:4 0pm [facility] Medical Records Department [address] [place] [address] Emergency Department Summary 02/19/25 MR#: [id number] Acct: [id number] Name: LISA LUCERO Rep #:[id number] : 1955 69 From: Linwood Ivy DO PCP: Dr. Phuc Martines DO Status:AD IN [id number] Linwood Ivy DO on 02/19/25 at 1540 Repeat EKG was performed given her heart rate had normalized to a rate of 96 bpmstill shows atrial flutter with PVCs noted. Hospitalist was notified and updated on this. 02/19/25 1540<Electronically signed by Linwood Ivy DO> Cosigner Signature (if applicable): cc: Dr. Phuc Martines DO ~* Signed ADDENDUM by Dr. Linwood Ivy DO on 02/19/25 at 1534 Critical care time 37 minutes 02/19/25 1534<Electronically signed by Linwood Ivy DO> Cosigner Signature (if applicable): cc: Dr. Phuc Martines DO ~* Signed HPI History of Present Illness Chief Complaint: Shortness of Breath Narrative Narrative: Patient is a 69-year-old female past medical history of COPD on 3 L at rest nasal cannula, hypertension who presents to the emergency department chief complaint shortness of breath. Patient states the past few days she has noted that she had worsening shortness of breath especially with exertion. Patient states that her bilateral lower extremities have been swelling over the last week as well. Patient states that she feels very short of breath with exertion and when trying to talk. Patient denies any sick contacts states that she is not coughing up significant mount of phlegm. [facility] Medical History COPD (chronic obstructive pulmonary disease) Home Medications ?Medication ?Instructions ?Recorded ?Last Taken ?Type Oxygen, Home [Home Oxygen] 2 - 4 lpm QHS 11/13/1701/27 History ascorbic acid (vitamin C) 500 mg 500 mg PO DAILY 11/1302/18/25 History capsule albuterol sulfate 90 mcg/actuation 2 inh inhalation Q6 H PRN shortness 02/19/25 Unknown History breath activated powder inhaler of breath amlodipine 10 mg tablet 10 mg PO DAILY 02/19/2501/27 History fluticasone fur. 200 mcg-umeclid 1 ea inhalation DAILY 02/19/25 02/19/25 History 62.5 mcg-vilant 25 mcg inhalat.powder (Trelegy Ellipta) guaifenesin 1,200 mg tablet, 1,200 mg PO BID PRN cough 02/19/25 Unknown History extended release 12 hr (Mucus Relief ER) ipratropium 0.5 mg-albuterol 3 mg 3 ml inhalation Q6H PRN shortness 02/19/25 02/19/25 History (2.5 mg base)/3 mL nebulization of breath soln multivitamin (Daily Multi-Vitamin 1 tab PO DAILY 02/1902/18/25 History tablet) sodium chloride 0.65 % nasal spray 1 spray intranasal BID PRN dry 02/19/25 Unknown History aerosol (Oxford Saline) nasal passages triamcinolone acetonide 0.5 % 1 applic topical BID PRN itching 02/19/25 Unknown History topical cream triamterene 37.5 1 cap PO DAILY 02/19/2501/27 History mg-hydrochlorothiazide 25 mg capsule Allergy/AdvReac Type Severity Reaction Status Date / Time ibuprofen (From Advil) Allergy Mild Hives Verified 02/19/25 13:14 Surgical History Hx of inguinal herniorrhaphy Social History Smoking Status: Former smoker ROS ROS ED ROS Narrative Constitutional: Denies fevers, chills, headaches Eyes: Denies change in vision double vision blurry vision Cardiovascular: Denies chest pain or palpitations Respiratory: Complains of shortness of breath as noted above denies coughing Abdomen: Denies nausea vomit diarrhea : Denies urinary symptoms Neurological: Denies numbness, weakness, tingling Musculoskeletal: Denies back pain Skin: Denies any rashes or lesions EXAM Physical Exam Narrative Exam Narrative: General: Patient lying in bed resting comfortably did not appear to be in acute distress Head: Atraumatic, normocephalic Eyes: PERRL bilaterally, EOMI bilateral, no conjunctival injection noted Neck: Soft, supple, trachea midline Cardiovascular: Patient is tachycardic Respiratory: Diminished breath sounds bilaterally, patient does have increased work of breathing noted on exam conversational dyspnea noted Abdomen: Soft, nondistended Extremities: +5/5 strength noted in the bilateral upper and lower extremities, pedal edema noted on exam bilaterally Neurological: Patient follow commands and that she was at [facility] year is 2024 Skin: Warm, dry, intact no rashes or lesions noted Const Vital Signs: 02/19/25 12:52 02/19/25 13:11 02/19/25 13:13 Temperature 99.2 F H Temperature Source Oral Pulse Rate 116 H Respiratory Rate 20 H Respiratory Effort Short of Breath Respiratory Pattern Blood Pressure 120/106 H Blood Pressure Mean 110 Pulse Ox 91 85 Oxygen Delivery Method Nasal Cannula Nasal Cannula Oxygen Flow Rate (L/min) 6 5 02/19/25 13:20 02/19/25 13:20 02/19/25 13:26 Temperature Temperature Source Pulse Rate 106 H 96 Respiratory Rate 22 H 24 H Respiratory Effort Respiratory Pattern Tachypnea Blood Pressure 130/67 H Blood Pressure Mean 88 Pulse Ox 97 98 Oxygen Delivery Method Nasal Cannula Nasal Cannula Oxygen Flow Rate (L/min) 6 6 02/19/25 13:53 02/19/25 14:43 Temperature 99.2 F H 98.8 F Temperature Source Oral Oral Pulse Rate 115 H 121 H Respiratory Rate 28 H 24 H Respiratory Effort Respiratory Pattern Blood Pressure 159/74 H 137/118 H Blood Pressure Mean 102 124 Pulse Ox 96 91 Oxygen Delivery Method Nasal Cannula Nasal Cannula Oxygen Flow Rate (L/min) 6 5 MDM MDM MDM Narrative Medical decision making narrative: Patient is a 69-year-old female who presented to the emergency department with achief complaint of shortness of breath and bilateral lower extremity swelling. On the differential diagnosis includes but not limited to ACS, pneumonia, CHF, upper respiratory infection secondary viral etiology. Once workup is obtained and reviewed she will be reevaluated. Patient was noted to be hypoxic with 5 L of nasal cannula while talking to the mid 80s and she had conversational dyspneaassociated with this. There is concern for hypervolemic state therefore 30 cc/kg bolus of IV fluids will not be given and should be given a 500 cc bolus. Patient be given 2 DuoNebs as well. Once workup is obtained reviewed she will be reevaluated. Patient CBC was reviewed and showed no evidence leukocytosis white blood count was 8.6, hemoglobin 13, plate count to be 231. Patient INR normal at 1, PT of 13.4. Patient sodium was normal at 142, calcium normal 3.6, creatinine 0.55. Patient's AST and ALT were 29 and 45 respectively, troponin and proBNP pending. Patient's EKG was reviewed and showed atrial flutter with a rate of 106 beats per minutes. Patient's chest x-ray reviewed by myself and by radiology which showed findings consistent with pulmonary venous congestion. Patient was given 40 mg of IV Lasix. Patient still tachycardic with a rate in the 120s therefore will be given 5 Lopressor. Patient's troponin was normal at less than 6, proBNP of 529, urinalysis pending. At this point time patient will require admission to the hospital for a likely CHF exacerbation given her dyspnea on exertion, conversational dyspnea, bilateral lower extremity swelling with evidence of vascular congestion on her x-ray of her chest. Will discuss case with hospitalist. Patient's case discussed with hospitalist Dr. Norton who accept the patient for admission. Patient was notified is agreeable this plan. We discussed using heparin for her atrial flutter given her new onset of this however will hold offfor now in the hospital states that she will decide after she evaluates the patient the need for anticoagulation. Lab Data Labs: Laboratory Results - last 24 hr 02/19/25 02/19/25 13:09 14:35 WBC 8.6 RBC 4.16 L Hgb 13.0 Hct 41.2 MCV 99.0 MCH 31.3 MCHC 31.6 L RDW Std Deviation 53.2 H RDW Coeff of Karly 14.6 Plt Count 231 MPV 10.4 Immature Gran % (Auto) 0.200 Neut % (Auto) 80.0 H Lymph % (Auto) 9.8 L [place] % (Auto) 8.5 Eos % (Auto) 1.0 Baso % (Auto) 0.5 Absolute Neuts (auto) 6.9 Absolute Lymphs (auto) 0.84 Nucleated RBC % 0 PT 13.4 INR 1.0 APTT 27.1 Sodium 142 Potassium 3.6 Chloride 96 L Carbon Dioxide 34.4 H Anion Gap 11 BUN 15 Creatinine 0.55 L Estim Creat Clear Calc 87.97 Est GFR (MDRD) Non-Af 100 BUN/Creatinine Ratio 27.9 H Glucose 116 H Lactic Acid 1.5 Calcium 9.4 Total Bilirubin 0.69 AST 29 ALT 45 H Alkaline Phosphatase 80 Troponin T High Sens < 6 NT pro BNP II 529 Total Protein 7.2 Albumin 4.0 Globulin 3.3 Albumin/Globulin Ratio 1.2 Urine Color Straw Urine Clarity Clear Urine pH 6.0 Ur Specific [place] 1.010 Urine Protein Negative Urine Glucose (UA) Normal Urine Ketones Negative Urine Occult Blood Negative Urine Nitrite Negative Urine Bilirubin Negative Urine Urobilinogen Normal Ur Leukocyte Esterase 25 H Radiography Diagnostic Testing: Clinical Impression(s) from Imaging Studies Chest X-Ray 02/19/25 13:40 IMPRESSION: Pulmonary venous congestive changes. Reading Location: [facility] Discharge Plan Triage Chief Complaint: Shortness of Breath ED Provider: Linwood Ivy Dx/Rx/DC Orders Clinical Impression: Acute on chronic hypoxic respiratory failure, Dyspnea on exertion, Atrial flutter Prescriptions: No Action ascorbic acid (vitamin C) 500 MG capsule 500 mg PO DAILY Oxygen, Home [Home Oxygen] 2 - 4 lpm NASAL QHS albuterol sulfate 90 mcg/actuation aerosol powdr breath activated 2 inh inhalation Q6H PRN (Reason: shortness of breath) amlodipine 10 mg tablet 10 mg PO DAILY Trelegy Ellipta 200-62.5-25 mcg blister with device 1 ea inhalation DAILY triamcinolone acetonide 0.5 % cream 1 applic topical BID PRN (Reason: itching) ipratropium-albuterol 0.5 mg-3 mg(2.5 mg base)/3 mL solution for nebulization 3 ml inhalation Q6H PRN (Reason: shortness of breath) multivitamin [Daily Multi-Vitamin] Tablet 1 tab PO DAILY Oxford Saline 0.65 % aerosol,spray 1 spray intranasal BID PRN (Reason: dry nasal passages) triamterene-hydrochlorothiazid 37.5-25 mg capsule 1 cap PO DAILY Patient Comments: PT TAKES IN AFTERNOON guaifenesin [Mucus Relief ER] 1,200 MG tablet 1,200 mg PO BID PRN (Reason: cough) Primary Care Provider: Phuc Martines Referrals: Phuc Martines DO [Primary Care Provider] - Print Language: French Disposition Disposition: Acute Care Hospital [facility] What to do if you have Problems For any increased pain, shortness of breath, bleeding, nausea or vomiting, chestpain, or any unexpected problems, contact your Primary Care Provider. Call [facility] ([phone]) or report to the closest Emergency Room. Call 911 if necessary. 02/19/25 1504 <Electronically signed by Linwood Ivy DO> Cosigner Signature (if applicable): CC: Dr. Phuc Martines DO ~ Signed [facility] Work Phone: 1(160) 364-691104-25-2025 History and physical note [facility] Medical Records Department [address] [place] [address] H&P Exam - Hospitalist 02/19/25 1548 MR#: [id number] Acct: [id number] Name: LISA LUCERO Rep #:[id number] : 1955 69 From: Kym Norton MD PCP: Dr. Phuc Martines DO Status:AD M IN Location: [facility] [id number] HPI - General General Date of Admission: 02/19/25 Date of Service: 02/19/25 Chief Complaint: Increase shortness of breath and lower extremity swelling HPI Narrative LISA LUCERO, is a 69-year-old female with a history of COPD on 3 L nasal cannula and hypertension who presented to [facility] ED 02/19/2025 with increased shortness of breath particularly on exertion for the past several days as well as increased bilateral lower extremity swelling this past week and conversational dyspnea. On arrival patient dropped down to 85% on5 L of nasal cannula with respiratory rate up to 28, blood pressure 120/106 witha heart rate of 116 and temperature 99.2. CBC and BMP fairly benign however chest x-ray did report pulmonary venous congestive changes. Patient given IV Lasix. Patient also noted to be in what appeared to be A-fib versus flutter with variable block and was given 5 of IV Lopressor due to a heart rate in the 120s. Hospitalist contacted for admission for possible new onset heart failure. Patient evaluated with friend at bedside, patient reports her breathing has gotten worse over the past year and she had a lung cancer screening which showedinflammation that developed but then subsequently improved and she reports is being monitored but they were not sure what caused it. She also notes for the last 7 to 10 days she had increased swelling in her lower extremities with increasing shortness of breath on exertion, denies overt chest pain but sometimes when she lays on her left side will have a GIB feeling on the left side of her back, this happened 3 times over several months. Has a little bit of a dry cough but minimal, does have some nasal congestion and reports when shewakes up she has some pasty feeling on her tongue. Denies history of ROXY and reports she did a previous sleep study which was negative. Does endorse drinking several mixed drinks a day and estimates that it equals about 4 shots aday. She does not noteany history of withdrawal symptoms. [facility] Medical History COPD (chronic obstructive pulmonary disease) Home Medications ?Medication ?Instructions ?Recorded ?Last Taken ?Type Oxygen, Home [Home Oxygen] 2 - 4 lpm QHS 11/13/1701/27 History ascorbic acid (vitamin C) 500 mg 500 mg PO DAILY 11/1302/18/25 History capsule albuterol sulfate 90 mcg/actuation 2 inh inhalation Q6 H PRN shortness 02/19/25 Unknown History breath activated powder inhaler of breath amlodipine 10 mg tablet 10 mg PO DAILY 02/19/25 04/2 03/21 History fluticasone fur. 200 mcg-umeclid 1 ea inhalation DAILY 02/19/25 02/19/25 History 62.5 mcg-vilant 25 mcg inhalat.powder (Trelegy Ellipta) guaifenesin 1,200 mg tablet, 1,200 mg PO BID PRN cough 02/19/25 Unknown History extended release 12 hr (Mucus Relief ER) ipratropium 0.5 mg-albuterol 3 mg 3 ml inhalation Q6H PRN shortness 02/19/25 02/19/25 History (2.5 mg base)/3 mL nebulization of breath soln multivitamin (Daily Multi-Vitamin 1 tab PO DAILY 02/1902/18/25 History tablet) sodium chloride 0.65 % nasal spray 1 spray intranasal BID PRN dry 02/19/25 Unknown History aerosol (Oxford Saline) nasal passages triamcinolone acetonide 0.5 % 1 applic topical BID PRN itching 02/19/25 Unknown History topical cream triamterene 37.5 1 cap PO DAILY 02/19/2501/27 History mg-hydrochlorothiazide 25 mg capsule Allergy/AdvReac Type Severity Reaction Status Date / Time ibuprofen (From Advil) Allergy Mild Hives Verified 02/19/25 13:14 Surgical History Hx of inguinal herniorrhaphy Social History Smoking Status: Former smoker ROS ROS Narrative General: Denies fever/chills HENT: Denies headache, has some chronic nasal congestion, denies sore throat EYES: Denies changes in vision Resp: Denies significant cough, occasional dry cough, has had increased shortness of breath over the past year but worse over the past week Cardiac: Denies chest pain, sometimes will have some left-sided back pain when she is laying there GI: Symptoms some left abdominal pain which she attributes to a known splenic cyst, denies changes in bowel, denies nausea/vomiting : Denies changes in urination Extremity: Increased swelling lower extremities over the past 7 to 10 days MSK: Denies weakness Neuro: Denies any numbness/tingling Heme: Denies any bleeding or bruising Skin: Denies rashes Psychiatric: No complaints voiced Vital Signs Vital Signs Vital Signs: 02/19/25 12:52 02/19/25 13:11 02/19/25 13:13 Temperature 99.2 F H Temperature Source Oral Pulse Rate 116 H Respiratory Rate 20 H Respiratory Effort Short of Breath Respiratory Pattern Blood Pressure 120/106 H Blood Pressure Mean 110 Pulse Ox 91 85 Oxygen Delivery Method Nasal Cannula Nasal Cannula Oxygen Flow Rate (L/min) 6 5 02/19/25 13:20 02/19/25 13:20 02/19/25 13:26 Temperature Temperature Source Pulse Rate 106 H 96 Respiratory Rate 22 H 24 H Respiratory Effort Respiratory Pattern Tachypnea Blood Pressure 130/67 H Blood Pressure Mean 88 Pulse Ox 97 98 Oxygen Delivery Method Nasal Cannula Nasal Cannula Oxygen Flow Rate (L/min) 6 6 02/19/25 13:53 02/19/25 14:43 02/19/25 15:07 Temperature 99.2 F H 98.8 F 98.8 F Temperature Source Oral Oral Pulse Rate 115 H 121 H 96 Respiratory Rate 28 H 24 H 18 Respiratory Effort Respiratory Pattern Blood Pressure 159/74 H 137/118 H 125/80 H Blood Pressure Mean 102 124 95 Pulse Ox 96 91 91 Oxygen Delivery Method Nasal Cannula Nasal Cannula Oxygen Flow Rate (L/min) 6 5 Weight Weight: 122.1 kg Body Mass Index (BMI) 46.2 Physical Exam Narrative General: Alert, oriented HEENT: Atraumatic, normocephalic Eyes: Anicteric, normal conjunctiva, extraocular movements grossly intact Neck: Supple Respiratory: Increased respiratory effort and diminished bilaterally with poor airflow Cardiovascular: Irregularly irregular GI: Soft, nontender, nondistended Extremities: 1+ bilateral lower extremity edema Musculoskeletal: Moving all extremities Neuro: No overt focal neurological deficits Skin: No rashes appreciated Psych: Cooperative Results Lab / Micro Data 02/19/25 13:09 02/19/25 13:09 Labs: Laboratory Results - last 24 hr 02/19/25 13:09: WBC 8.6, RBC 4.16 L, Hgb 13.0, Hct 41.2, MCV 99.0, MCH 31.3, MCHC 31.6 L, RDW Std Deviation 53.2 H, RDW Coeff of Karly 14.6, Plt Count 231, MPV 10.4, Immature Gran % (Auto) 0.200, Neut % (Auto) 80.0 H, Lymph % (Auto) 9.8 L, [place] % (Auto) 8.5, Eos % (Auto) 1.0, Baso % (Auto) 0.5, Absolute Neuts (auto) 6.9, Absolute Lymphs (auto) 0.84, Nucleated RBC % 0, PT 13.4, INR 1.0, APTT 27.1, Sodium 142, Potassium 3.6, Chloride 96 L, Carbon Dioxide 34.4 H, Anion Gap11, BUN 15, Creatinine 0.55L, Estim Creat Clear Calc 87.97, Est GFR (MDRD) Non-Af 100, BUN/Creatinine Ratio 27.9 H, Glucose 116 H, Lactic Acid 1.5, Calcium 9.4, Total Bilirubin 0.69, AST 29, ALT 45 H, Alkaline Phosphatase 80, Troponin THigh Sens < 6, NT pro BNP II 529, Total Protein 7.2, Albumin 4.0, Globulin 3.3, Albumin/Globulin Ratio 1.2 02/19/25 14:35: Urine Color Straw, Urine Clarity Clear, Urine pH 6.0, Ur Specific [place] 1.010, Urine Protein Negative, Urine Glucose (UA) Normal, UrineKetones Negative, Urine Occult Blood Negative,Urine Nitrite Negative, Urine Bilirubin Negative, Urine Urobilinogen Normal, Ur Leukocyte Esterase 25 H, UrineRBC 0 SEEN, Urine WBC 0-5 SEEN, Ur Squamous Epith Cells 0-5 SEEN, Urine Bacteria0 SEEN, Urine Mucus 0 SEEN Micro: Microbiology 02/19/25 13:10 Mucosa - Nose SARS-CoV-2, Influenza & RSV (PCR) - Final Imaging Radiology Impression Chest X-Ray 02/19/25 13:40 IMPRESSION: Pulmonary venous congestive changes. Reading Location: [facility] Assessment & Plan Assessment/Plan (1) Acute on chronic hypoxic respiratory failure: PLAN: Plan # Acute on chronic hypoxic respiratory failure in setting of COPD on 3 L home [id number] secondary to new onset heart failure -Patient had 85% on 5 L in the ED, improved to 88% on 5 L during my evaluation, initially was in respiratory distress that improved to the point patient was no longer conversationally dyspneic on my exam -Chest x-ray with pulmonary venous congestive changes and patient with increasing bilateral lower extremity edema -Admit to telemetry -proBNP 529 however patient's chest x-ray, lower extremity edema, clinical picture consistent with fluid overload -CXR with pulmonary congestive changes -Continue IV lasix - No previous echo available in our system - Echo ordered -Daily weights, I's and O's -Fluid restriction, heart healthy diet - Patient 88 to 91% on 5 L nasal cannula however she is sitting up in bed and does have increased work of breathing but no longer conversationally dyspneic and is slowly improving, discussed that if her O2 sat would drop or remain low despite interventions she would likely need BiPAP even if only temporary, patient agreeable # New onset A-fib/flutter -EKG on presentation showed what appeared to be a flutter with variable block, patient with heart rate up in the 120s and was given IV Lopressor in the ED, patient appeared irregular on telemetry andappeared to be A-fib and repeat EKG also with questionable flutter - May now be a new onset heart failure due to patient being in what appears to be fib/flutter and initially had elevated rate up to 120s, difficult to tell if patient's elevated rate caused the fluidoverload or if patient's hypoxia causedher to be tachycardic but she did seem to improve with Lopressor -Check TSH - Start Eliquis - Will start low-dose of metoprolol and titrate as needed, will avoid diltiazem if possible due to concern for new onset heart failure with exacerbation, if needed could always temporarily switch to amiodarone based on patient's clinicalstatus -Check echo # COPD - Continue home inhalers - Does not seem to be in exacerbation, seems that this is due to fluid overload - Incentive spirometer #Hypertension - Will hold patient's home antihypertensives to allow room for diuresis - Will also be starting low-dose metoprolol as above #Increased etoh intake -Patient drinks the equivalent of about 4 shots daily, does not note any historyof alcohol withdrawal but will place patient on CIWA in an abundance of caution with low-dose coverage #Morbid obesity -BMI documented as 46.2 kg/m? at time of admission -Complicates treatment, prognosis, outcomes -Recommend weight loss and lifestyle changes #DVT ppx: Starting on Eliquis as above Kym Norton MD Time spent in the patient's overall evaluation, decision-making process, review of diagnostic data,adjustment of management, discussion with other providers, nursing and ancillary staff involved in patient's care documentation, 78 Minutes Charges/Coding Visit Charges Inpatient E&M: 35702 Init Hosp L3 02/19/25 1613 Cosigner Signature (if applicable): CC: Dr. Phuc Martines DO; Dr. Kym Norton MD~ Signed [facility]04-25-2025 Discharge summary [facility] Medical Records Department [address] [place] [address] Emergency Department Summary 02/19/25 MR#: [id number] Acct: [id number] Name: LISA LUCERO Rep #:[id number] : 1955 69 From: Linwood Ivy DO PCP: Dr. Phuc Martines DO Status:AD IN Location: [place] [address] Linwood Ivy DO on 02/19/25 at 1540 Repeat EKG was performed given her heart rate had normalized to a rate of 96 bpmstill shows atrial flutter with PVCs noted. Hospitalist was notified and updated on this. 02/19/25 1540 Cosigner Signature (if applicable): cc: Dr. Phuc Martines DO ~* Signed ADDENDUM by Dr. Linwood Ivy DO on 02/19/25 at 1534 Critical care time 37 minutes 02/19/25 1534 Cosigner Signature (if applicable): cc: Dr. Phuc Martines DO ~* Signed HPI History of Present Illness Chief Complaint: Shortness of Breath Narrative Narrative: Patient is a 69-year-old female past medical history of COPD on 3 L at rest nasal cannula, hypertension who presents to the emergency department chief complaint shortness of breath. Patient states the past few days she has noted that she had worsening shortness of breath especially with exertion. Patient states that her bilateral lower extremities have been swelling over the last week as well. Patient states that she feels very short of breath with exertion and when trying to talk. Patient denies any sick contacts states that she is not coughing up significant mount of phlegm. [facility] Medical History COPD (chronic obstructive pulmonary disease) Home Medications ?Medication ?Instructions ?Recorded ?Last Taken ?Type Oxygen, Home [Home Oxygen] 2 - 4 lpm QHS 11/13/1701/27 History ascorbic acid (vitamin C) 500 mg 500 mg PO DAILY 11/1302/18/25 History capsule albuterol sulfate 90 mcg/actuation 2 inh inhalation Q6 H PRN shortness 02/19/25 Unknown History breath activated powder inhaler of breath amlodipine 10 mg tablet 10 mg PO DAILY 02/19/2501/27 History fluticasone fur. 200 mcg-umeclid 1 ea inhalation DAILY 02/19/25 02/19/25 History 62.5 mcg-vilant 25 mcg inhalat.powder (Trelegy Ellipta) guaifenesin 1,200 mg tablet, 1,200 mg PO BID PRN cough 02/19/25 Unknown History extended release 12 hr (Mucus Relief ER) ipratropium 0.5 mg-albuterol 3 mg 3 ml inhalation Q6H PRN shortness 02/19/25 02/19/25 History (2.5 mg base)/3 mL nebulization of breath soln multivitamin (Daily Multi-Vitamin 1 tab PO DAILY 02/1902/18/25 History tablet) sodium chloride 0.65 % nasal spray 1 spray intranasal BID PRN dry 02/19/25 Unknown History aerosol (Oxford Saline) nasal passages triamcinolone acetonide 0.5 % 1 applic topical BID PRN itching 02/19/25 Unknown History topical cream triamterene 37.5 1 cap PO DAILY 02/19/2501/27 History mg-hydrochlorothiazide 25 mg capsule Allergy/AdvReac Type Severity Reaction Status Date / Time ibuprofen (From Advil) Allergy Mild Hives Verified 02/19/25 13:14 Surgical History Hx of inguinal herniorrhaphy Social History Smoking Status: Former smoker ROS ROS ED ROS Narrative Constitutional: Denies fevers, chills, headaches Eyes: Denies change in vision double vision blurry vision Cardiovascular: Denies chest pain or palpitations Respiratory: Complains of shortness of breath as noted above denies coughing Abdomen: Denies nausea vomit diarrhea : Denies urinary symptoms Neurological: Denies numbness, weakness, tingling Musculoskeletal: Denies back pain Skin: Denies any rashes or lesions EXAM Physical Exam Narrative Exam Narrative: General: Patient lying in bed resting comfortably did not appear to be in acute distress Head: Atraumatic, normocephalic Eyes: PERRL bilaterally, EOMI bilateral, no conjunctival injection noted Neck: Soft, supple, trachea midline Cardiovascular: Patient is tachycardic Respiratory: Diminished breath sounds bilaterally, patient does have increased work of breathing noted on exam conversational dyspnea noted Abdomen: Soft, nondistended Extremities: +5/5 strength noted in the bilateral upper and lower extremities, pedal edema noted onexam bilaterally Neurological: Patient follow commands and that she was at [facility] year is 2024 Skin: Warm, dry, intact no rashes or lesions noted Const Vital Signs: 02/19/25 12:52 02/19/25 13:11 02/19/25 13:13 Temperature 99.2 F H Temperature Source Oral Pulse Rate 116 H Respiratory Rate 20 H Respiratory Effort Short of Breath Respiratory Pattern Blood Pressure 120/106 H Blood Pressure Mean 110 Pulse Ox 91 85 Oxygen Delivery Method Nasal Cannula Nasal Cannula Oxygen Flow Rate (L/min) 6 5 02/19/25 13:20 02/19/25 13:20 02/19/25 13:26 Temperature Temperature Source Pulse Rate 106 H 96 Respiratory Rate 22 H 24 H Respiratory Effort Respiratory Pattern Tachypnea Blood Pressure 130/67 H Blood Pressure Mean 88 Pulse Ox 97 98 Oxygen Delivery Method Nasal Cannula Nasal Cannula Oxygen Flow Rate (L/min) 6 6 02/19/25 13:53 02/19/25 14:43 Temperature 99.2 F H 98.8 F Temperature Source Oral Oral Pulse Rate 115 H 121 H Respiratory Rate 28 H 24 H Respiratory Effort Respiratory Pattern Blood Pressure 159/74 H 137/118 H Blood Pressure Mean 102 124 Pulse Ox 96 91 Oxygen Delivery Method Nasal Cannula Nasal Cannula Oxygen Flow Rate (L/min) 6 5 MDM MDM MDM Narrative Medical decision making narrative: Patient is a 69-year-old female who presented to the emergency department with achief complaint of shortness of breath and bilateral lower extremity swelling. On the differential diagnosis includes but not limited to ACS, pneumonia, CHF, upper respiratory infection secondary viral etiology. Once workup is obtained and reviewed she will be reevaluated. Patient was noted to be hypoxic with 5 L of nasal cannula while talking to the mid 80s and she had conversational dyspneaassociated with this. There is concern for hypervolemic state therefore 30 cc/kg bolus of IV fluids will not be given and should be given a 500 cc bolus. Patient be given 2 DuoNebs as well. Once workup is obtained reviewed she will be reevaluated. Patient CBC was reviewed and showed no evidence leukocytosis white blood count was 8.6, hemoglobin 13, plate count to be 231. Patient INR normal at 1, PT of 13.4. Patient sodium was normal at 142, calcium normal 3.6, creatinine 0.55. Patient's AST and ALT were 29 and 45 respectively, troponin and proBNP pending. Patient's EKG was reviewed and showed atrial flutter with a rate of 106 beats per minutes. Patient's chest x-ray reviewed by myself and by radiology which showed findings consistent with pulmonary venous congestion. Patient was given 40 mg of IV Lasix. Patient still tachycardic with a rate in the 120s therefore will be given 5 Lopressor. Patient's troponin was normal at less than 6, proBNP of 529, urinalysis pending. At this point time patient will require admission to the hospital for a likely CHF exacerbation given her dyspnea on exertion, conversational dyspnea, bilateral lower extremity swelling with evidenceof vascular congestion on her x- ray of her chest. Will discuss case with hospitalist. Patient's case discussed with hospitalist Dr. Norton who accept the patient for admission. Patient was notified is agreeable this plan. We discussed using heparin for her atrial flutter given her newonset of this however will hold offfor now in the hospital states that she will decide after she evaluates the patient the need for anticoagulation. Lab Data Labs: Laboratory Results - last 24 hr 02/19/25 02/19/25 13:09 14:35 WBC 8.6 RBC 4.16 L Hgb 13.0 Hct 41.2 MCV 99.0 MCH 31.3 MCHC 31.6 L RDW Std Deviation 53.2 H RDW Coeff of Karly 14.6 Plt Count 231 MPV 10.4 Immature Gran % (Auto) 0.200 Neut % (Auto) 80.0 H Lymph % (Auto) 9.8 L [place] % (Auto) 8.5 Eos % (Auto) 1.0 Baso % (Auto) 0.5 Absolute Neuts (auto) 6.9 Absolute Lymphs (auto) 0.84 Nucleated RBC % 0 PT 13.4 INR 1.0 APTT 27.1 Sodium 142 Potassium 3.6 Chloride 96 L Carbon Dioxide 34.4 H Anion Gap 11 BUN 15 Creatinine 0.55 L Estim Creat Clear Calc 87.97 Est GFR (MDRD) Non-Af 100 BUN/Creatinine Ratio 27.9 H Glucose 116 H Lactic Acid 1.5 Calcium 9.4 Total Bilirubin 0.69 AST 29 ALT 45 H Alkaline Phosphatase 80 Troponin T High Sens < 6 NT pro BNP II 529 Total Protein 7.2 Albumin 4.0 Globulin 3.3 Albumin/Globulin Ratio 1.2 Urine Color Straw Urine Clarity Clear Urine pH 6.0 Ur Specific [place] 1.010 Urine Protein Negative Urine Glucose (UA) Normal Urine Ketones Negative Urine Occult Blood Negative Urine Nitrite Negative Urine Bilirubin Negative Urine Urobilinogen Normal Ur Leukocyte Esterase 25 H Radiography Diagnostic Testing: Clinical Impression(s) from Imaging Studies Chest X-Ray 02/19/25 13:40 IMPRESSION: Pulmonary venous congestive changes. Reading Location: [facility] Discharge Plan Triage Chief Complaint: Shortness of Breath ED Provider: Linwood Ivy Dx/Rx/DC Orders Clinical Impression: Acute on chronic hypoxic respiratory failure, Dyspnea on exertion, Atrial flutter Prescriptions: No Action ascorbic acid (vitamin C) 500 MG capsule 500 mg PO DAILY Oxygen, Home [Home Oxygen] 2 - 4 lpm NASAL QHS albuterol sulfate 90 mcg/actuation aerosol powdr breath activated 2 inh inhalation Q6H PRN (Reason: shortness of breath) amlodipine 10 mg tablet 10 mg PO DAILY Trelegy Ellipta 200-62.5-25 mcg blister with device 1 ea inhalation DAILY triamcinolone acetonide 0.5 % cream 1 applic topical BID PRN (Reason: itching) ipratropium-albuterol 0.5 mg-3 mg(2.5 mg base)/3 mL solution for nebulization 3 ml inhalation Q6H PRN (Reason: shortness of breath) multivitamin [Daily Multi-Vitamin] Tablet 1 tab PO DAILY Oxford Saline 0.65 % aerosol,spray 1 spray intranasal BID PRN (Reason: dry nasal passages) triamterene-hydrochlorothiazid 37.5-25 mg capsule 1 cap PO DAILY Patient Comments: PT TAKES IN AFTERNOON guaifenesin [Mucus Relief ER] 1,200 MG tablet 1,200 mg PO BID PRN (Reason: cough) Primary Care Provider: Phuc Martines Referrals: Phuc Martines DO [Primary Care Provider] - Print Language: French Disposition Disposition: Acute Care Hospital [facility] What to do if you have Problems For any increased pain, shortness of breath, bleeding, nausea or vomiting, chestpain, or any unexpected problems, contact your Primary Care Provider. Call [facility] ([phone]) or report tothe closest Emergency Room. Call 911 if necessary. 02/19/25 1504 Cosigner Signature (if applicable): CC: Dr. Phuc Martines DO ~ Signed [facility]04-25-2025 Radiology Diagnostic study note [facility] Imaging Services [address] [place] [address] Chest PA and Lateral MR#: [id number] Acct: [id number] Name: LISA LUCERO Rep #: [id number] : 1955 F 69 From: Vicki Mccabe MD PCP: Dr. Phuc Martines DO Status: RE G ER Study:Chest PA and Lateral Date of Exam: 02/19/25 Exam# [id number] Ordering Dr: Yonatan Ivy DO PROCEDURE: CHEST PA AND LATERAL 02/19/2025 REASON FOR EXAM: SOB TECHNIQUE: Frontal and lateral views of the chest. FINDINGS: Lungs: Pulmonary venous congestive changes are suspected. No pneumonia. Pleura: No pleural effusions, thickening, or pneumothorax. Heart: Mild cardiac enlargement. Mediastinum/Elyssa: Unremarkable. Great vessels: Unremarkable. Bones/soft tissues: Unremarkable. RAD/Chest PA and Lateral IMPRESSION: Pulmonary venous congestive changes. Reading Location: [facility] CC: Dr. Phuc Martines DO; Dr. Linwood Ivy DO ~ Personal Lines Account Manager: Signed [facility]04-01-2025 Telephone encounter Note* Telephone Encounter - Maricruz Camp APRN.CNP - 01/26/2025 4:47 PM EDT Left message for patient to check Mychart message and call back if she wants to discuss this further. Category 3 LDCT due to residual RML opacity, likely inflammatory/iinfectious. Maricruz Camp APRN.CNP [facility]04-01-2025 Miscellaneous Notes* Telephone Encounter - Maricruz Camp APRN.CNP - 01/26/2025 4:47 PM EDT Left message for patient to check Mychart message and call back if she wants to discuss this further. Category 3 LDCT due to residual RML opacity, likely inflammatory/iinfectious. Maricruz Camp APRN.CNP documented [facility] Instructions* Patient Instructions* Maricruz Camp APRN.CNP - 01/25/2025 12:28 PM EDT Lung nodule/s: all previously seen nodule/s have not changed in size or characteristic, New opacities resolved and there are no new nodules of concern. According to your age and smoking exposure, the [place] Preventive Services Task Force does NOT recommend lung cancer screening for you. Due to this, the low dose CT for screening will not be a covered insurance benefit for you at this time. You are ineligible due to: quitting smoking cigarettes > 15 years ago Lung Cancer Screening Eligibility Criteria: In order to be eligible for lung cancer screening a patient must be 50-77 years old have smoked cigarettes within the last 15 years have no signs or symptoms attributable to a potential lung cancer have a 20 pack year history of smoking. Be willing and able to tolerate curative intent treatment Lung Cancer Screening hotline: [phone] Specialist Providers: (Basia Guzman CNP; Josefina Ceron CNP; Jes Dewitt CNP; ELVIA Dixon; Lakia Ohara PA-C; Keely Castillo PA-C; Lisha Cruz CNP, Nadia Wilson CNP, Veronica Grover CULTURE MANAGER, Maricruz Camp CNP & Chiquis Rico PA-C): [phone] documented in this encounter[facility] History of Present illness Narrative* Jes Galaviz RT(R) - 01/25/2025 10:40 AM EDT Radiology Service Progress Note PATIENT NAME: Lisa Lucero DATE OF SERVICE: January 25, 2025 TIME: 1:52 PM PATIENT IDENTITY VERIFICATION COMPLETED USING TWO (2) IDENTIFIERS: Name and Date of confirmedby patient verbally. FALL SCREENING: Has the patient had 2 falls in the last year or 1 fall with injury or currently using an Ambulatory Assistive Device (Walker, Cane, Wheelchair, Crutches, etc.)? No PATIENT GENDER DATA: Assigned female at . status: : No status:NO. PATIENT RELEVANT IMPLANT DATA REVIEWED: Not Applicable PATIENT PRESENTS WITH AN IMPLANTABLE OR ATTACHED MULTILITH OPERATOR: No RADIOLOGY DEPARTMENT: CT; Exam(s) Completed: Lung Screening PERIPHERAL IV DATA: Not applicable SIGNED BY: RT Flower(R) January 25, 2025 1:52 PM documented in this encounterSelect [facility]25 NoteHNO ID: [id number] Author: JES GALAVIZ RT(Tarun) Service: ? Author Type: [employer] Type: Progress Notes Filed: 01/25/2025 13:52 Note Text: Radiology Service Progress Note PATIENT NAME: Lisa Lucero DATE OF SERVICE: January 25, 2025 TIME: 1:52 PM PATIENT IDENTITY VERIFICATION COMPLETED USING TWO (2) IDENTIFIERS: Name and Date of confirmed by patient verbally. FALL SCREENING: Has the patient had 2 falls in the last year or 1 fall with injury or currently using an Ambulatory Assistive Device (Walker, Cane, Wheelchair, Crutches, etc.)? No PATIENT GENDER DATA: Assigned female at . status: : No status: NO. PATIENT RELEVANT IMPLANT DATA REVIEWED: Not Applicable PATIENT PRESENTS WITH AN IMPLANTABLE OR ATTACHED MULTILITH OPERATOR: No RADIOLOGY DEPARTMENT: CT; Exam(s) Completed: Lung Screening PERIPHERAL IV DATA: Not applicable SIGNED BY: RT Flower(R) January 25, 2025 1:52 [facility]03-31-2025 NoteHNO ID: [id number] Author: MARICRUZ CAMP APRN.CULTURE MANAGER Service: ? Author Type: Nurse Practitioner Type: Progress Notes Filed: 01/25/2025 12:28 Note Text: Chief Complaint: 3 month follow-up from LDCT scan dated 10/19/2024 for LUNG RADS Category 0 finding of new RML consolidation and MAKAYLA nodule opacities. . History of Present Illness: Lisa Lucero is a 69 year old female who is presenting today for pulmonary nodule follow-up. Nodule was found through lung cancer screening on LDCT. Patient is a former smoker with a 38 pack year history. Quit smoking in 2008. Since the patient's last visit the patient has not had new medical issues or hospitalizations. No recent respiratory infections/pneumonia. The patient does not require assistance with normal activities of daily living. Modified Medical Research [place] Dyspnea Scale (MMRC) On level ground I walk slower than people of the same age because of breathlessness, or have to stop for breath when walking at my own pace 2 Patient has SOB with their daily activity. Shortness of breath is better since increased dose of Trelegy. No wheezing or dyspnea. Patient denies feeling of chest tightness/congestion in the chest. Patient does not have a new or concerning cough, and denies hemoptysis. Patient does not have a chronic daily cough. Doesn't have much of a cough, has throat clearing. Denies regular or recent fevers/chills. Patient does not have any significant unintentional weight loss. Patient denies having any respiratory infections or COVID-19 in the past few months. Last 12 Encounter Wt Readings: Date: Wt: 01/20/2025 119.7 kg (264 lb) 12/25/2024 119.1 kg (262 lb 9.6 oz) 10/19/2024 117.8 kg (259 lb 9.6 oz) 06/26/2024 115.2 kg (254 lb) 04/26/2024 118 kg (260 lb 2.3 oz) 03/13/2024 117 kg (258 lb) 01/29/2024 118.4 kg (261 lb 0.4 oz) 09/17/2023 120.4 kg (265 lb 6.4 oz) 08/14/2023 120.2 kg (265 lb) 06/13/2023 120.7 kg (266 lb) 02/06/2023 119.3 kg (263 lb) 09/28/2022 116.3 kg (256 lb 6.4 oz) Past Medical History: PAST MEDICAL HISTORY Diagnosis Date Chronic hypoxemic respiratory failure (HCC) COPD (chronic obstructive pulmonary disease) (HCC) 02/03/2010 Coronary artery disease No NE, CHF. No heart cath. Diverticulosis of colon (without mention of hemorrhage) Essential hypertension, benign Fibrocystic breast Former smoker Internal hemorrhoids without mention of complication Leiomyoma of uterus, unspecified Obstructive sleep apnea Mild. Not prescribed CPAP, only 2L nasal O2. Surgical Hx: PAST SURGICAL HISTORY Procedure Laterality Date BREAST LUMPECTOMY HX Right 1997 COLONOSCOPY FLX DX W/COLLJ SPEC WHEN PFRMD 08/27/08 repeat due 2017 COLONOSCOPY FLX DX W/COLLJ SPEC WHEN PFRMD 09/10/2018 Colonoscopy - due 2027 INGUINAL HERNIA REPAIR HX 1976 bilateral PAST SURGICAL HISTORY OF hemangioma left cheek REMOVAL OF IMPACTED TOOTH - COMPLETELY BONY WISDOM TEETH Family Hx: FAMILY HISTORY Problem Relation Age of Onset Cancer Father BLADDER COPD Mother other (Alcoholic) Mother associated with sepsis. Hypertension Maternal Grandmother Thyroid Maternal Grandmother Allergies: ALLERGIES Allergen Reactions Aleve [Naproxen] Hives Hives, edema of hands within 1 hour of use Social History Tobacco Use: Types: Cigarettes Review Of Systems: See HPI for ROS PHYSICAL EXAMINATION: BP 131/76 Pulse 88 Ht 5' 4 (1.63m) Wt 265 lb 6.4 oz (120.4kg) SpO2 92% BMI 45.53 kg/(m2). General appearance: well appearing, in no acute distress, and alert Skin: skin color, texture, turgor normal, no rashes or lesions Nose/Sinuses: Negative Oropharynx: Lips, mucosa, and tongue normal, teeth and gums normal, oropharynx normal Neck: Supple, no adenopathy; thyroid symmetric, normal size Respiratory: lungs clear to auscultation no wheezing or rhonchi, portable oxygen on with NC. Cardiovascular: Negative. RRR without murmur, gallop, or rubs. No ectopy Musculoskeletal: Extremities normal. No deformities, edema, or skin discoloration. Neuro: Oriented X 3 Data Review I have visually reviewed imaging and testing below CT imaging done today was reviewed and analyzed independently by practitioner and awaiting radiology review. CT was compared to prior CT chest. Previously noted opacities in MAKAYLA, RML and RLL have resolved. All other nodules are stable dating back to 08/29/2022. Prior PFTS: SPIROMETRY BASELINE ONLY ([id number]) - ordered on 03/16/22 No textual results for order. SPIROMETRY BASELINE ONLY ([id number]) - ordered on 03/31/20 [facility] [address], [place] [address] Test Date: 2020-03-31 Pat Name: LISA LUCERO Department: Room: Gender: Female [employer] As[employer]er: JANKI Lee : 1955 Requested By: Ivan CHRISTINE Order Number: [id number] Reading MD: Joel Childs Interpretive Statements ATS/ERS acceptabil (more content not included)...[facility] 01-25-2025 History of Present illness Narrative* Maricruz Camp APRN.CULTURE MANAGER - 01/25/2025 10:22 AM EDT Chief Complaint: 3 month follow-up from LDCT scan dated 10/19/2024 for LUNG RADS Category 0 finding of new RML consolidation and MAKAYLA nodule opacities. . History of Present Illness: Lisa Lucero is a 69 year old female who is presenting today for pulmonary nodule follow-up. Nodule was found through lung cancer screening on LDCT. Patient is a former smoker with a 38 pack year history. Quit smoking in 2008. Since the patient's last visit the patient has not had new medical issues or hospitalizations. No recent respiratory infections/pneumonia. The patient does not require assistance with normal activities of daily living. Modified Medical Research [place] Dyspnea Scale (MMRC) On level ground I walk slower than people of the same age because of breathlessness, or have to stop for breath when walking at my own pace 2 Patient has SOB with their daily activity. Shortness of breath is better since increased dose of Trelegy. No wheezing or dyspnea. Patient denies feeling of chest tightness/congestion in the chest. Patient does not have a new or concerning cough, and denies hemoptysis. Patient does not have a chronic daily cough. Doesn't have much of a cough, has throat clearing. Denies regular or recent fevers/chills. Patient does not have any significant unintentional weight loss. Patient denies having any respiratory infections or COVID-19 in the past few months. Last 12 Encounter Wt Readings: Date: Wt: 01/20/2025 119.7 kg (264 lb) 12/25/2024 119.1 kg (262 lb 9.6 oz) 10/19/2024 117.8 kg (259 lb 9.6 oz) 06/26/2024 115.2 kg (254 lb) 04/26/2024 118 kg (260 lb 2.3 oz) 03/13/2024 117 kg (258 lb) 01/29/2024 118.4 kg (261 lb 0.4 oz) 09/17/2023 120.4 kg (265 lb 6.4 oz) 08/14/2023 120.2 kg (265 lb) 06/13/2023 120.7 kg (266 lb) 02/06/2023 119.3 kg (263 lb) 09/28/2022 116.3 kg (256 lb 6.4 oz) Past Medical History: PAST MEDICAL HISTORY Diagnosis Date Chronic hypoxemic respiratory failure (HCC) COPD (chronic obstructive pulmonary disease) (HCC) 02/03/2010 Coronary artery disease No NE, CHF. No heart cath. Diverticulosis of colon (without mention of hemorrhage) Essential hypertension, benign Fibrocystic breast Former smoker Internal hemorrhoids without mention of complication Leiomyoma of uterus, unspecified Obstructive sleep apnea Mild. Not prescribed CPAP, only 2L nasal O2. Surgical Hx: PAST SURGICAL HISTORY Procedure Laterality Date BREAST LUMPECTOMY HX Right 1997 COLONOSCOPY FLX DX W/COLLJ SPEC WHEN PFRMD 08/27/08 repeat due 2017 COLONOSCOPY FLX DX W/COLLJ SPEC WHEN PFRMD 09/10/2018 Colonoscopy - due 2027 INGUINAL HERNIA REPAIR HX 1976 bilateral PAST SURGICAL HISTORY OF hemangioma left cheek REMOVAL OF IMPACTED TOOTH - COMPLETELY BONY WISDOM TEETH Family Hx: FAMILY HISTORY Problem Relation Age of Onset Cancer Father BLADDER COPD Mother other (Alcoholic) Mother associated with sepsis. Hypertension Maternal Grandmother Thyroid Maternal Grandmother Allergies: ALLERGIES Allergen Reactions Aleve [Naproxen] Hives Hives, edema of hands within 1 hour of use Social History Tobacco Use: Types: Cigarettes Review Of Systems: See HPI for ROS PHYSICAL EXAMINATION: BP 131/76 Pulse 88 Ht 5' 4 (1.63m) Wt 265 lb 6.4 oz (120.4kg) SpO2 92% BMI 45.53 kg/(m^2). General appearance: well appearing, in no acute distress, and alert Skin: skin color, texture, turgor normal, no rashes or lesions Nose/Sinuses: Negative Oropharynx: Lips, mucosa, and tongue normal, teeth and gums normal, oropharynx normal Neck: Supple, no adenopathy; thyroid symmetric, normal size Respiratory: lungs clear to auscultation no wheezing or rhonchi, portable oxygen on with NC. Cardiovascular: Negative. RRR without murmur, gallop, or rubs. No ectopy Musculoskeletal: Extremities normal. No deformities, edema, or skin discoloration. Neuro: Oriented X 3 Data Review I have visually reviewed imaging and testing below CT imaging done today was reviewed and analyzed independently by practitioner and awaiting radiology review. CT was compared to prior CT chest. Previously noted opacities in MAKAYLA, RML and RLL have resolved. All other nodules are stable dating back to 08/29/2022. Prior PFTS: SPIROMETRY BASELINE ONLY ([id number]) - ordered on 03/16/22 No textual results for order. SPIROMETRY BASELINE ONLY ([id number]) - ordered on 03/31/20 [facility] [address] , [place] [address] Test Date: 2020-03-31 Pat Name: LISA LUCERO Department: Room: Gender: Female [employer] As[employer]er: JANKI Lee : 1955 Requested By: Ivan CHRISTINE Order Number: [id number] Reading MD: Joel Childs Interpretive Statements ATS/ERS acceptability and repeatability standards for spirometry met. Medications and Allergies were reviewed for possible drug interactions per policy. No Contraindications or Sensitivities noted. Meds taken: TRELEGY 3.5/ hrs before testing. The inspired (FIVC) spirometry manuever is [greater than] the FVC manuever. IMPRESSION: The flow volume demonstrates an obstructive pattern. Spirometry indicates severe obstruction. Electronically Signed On 04-01-2020 8:24:35 EDT by Joel Childs Site: WO ID: [id number] Name: LISA LUCERO Visit Date: 03/31/2020 Second ID: [id number] Referring Doctor: Ivan CHRISTINE [employer] As[employer]er: JANKI Lee Age: 64 : 1955 Sex: Female Race: <Other> Height: 64.50 Inches Weight: 255.80 Lbs BSA: 2.18 Order IDs: [id number] Requested Test(s): Spirometry baseline only Post Test Comments: ATS/ERS acceptability and repeatability standards for spirometry met. Medications and Allergies were reviewed for possible drug interactions per policy. No Contraindications or Sensitivities noted. Meds taken: TRELEGY 3.5/ hrs before testing. The inspired (FIVC) spirometry manuever is [greater than] the FVC manuever. Review Status: Not Reviewed Pre-Bronch Post-Bronch Pred LLN ULN Actual %Pred Actual %Chng SPIROMETRY FVC (L) 2.91 2.22 3.63 2.22 76 FEV1 (L) 2.31 1.73 2.87 0.82 35 FEV1/FVC (%) 80 69 90 37 46 FEF 25% (L/sec) 4.98 2.84 7.13 0.68 13 FEF 50% (L/sec) 3.57 1.76 5.39 0.31 8 FEF 75% (L/sec) 0.60 0.24 1.39 0.16 26 FEF 25-75% (L/sec) 2.10 1.05 3.53 0.28 13 FEF Max (L/sec) 6.26 2.63 42 FIVC (L) 2.51 FIF 50% (L/sec) 3.87 2.44 5.31 4.50 116 FIF Max (L/sec) 4.82 FET (sec) 14.45 Back Extrap Vol (L) 0.07 Time To FEFmax (sec) 0.085 Assessment and Plan: 1. Pulmonary Nodule: MAKAYLA, RML, RLL opacities identified on the last CT have resolved, all previously noted lung nodules are stable (unchanged) dating back to 08/29/2022, and no new nodules of concern were seen on the exam. Patient will no longer meet inclusion criteria for CT Lung Screening due to quitting smoking > 15 years ago. All lung nodules have been stable > 2 years, dating back to 08/29/2022. No further CT imaging follow up is recommended. This recommendation is subject to change, pending final radiology report. Six year risk is 1.4% Https://[email or web address]/[email or web address]_unknown 2. Nicotine Dependence, Former: Continue to abstain from smoking cigarettes. Maricruz Camp APRN.ELVIA January 25, 2025 10:22 AM documented in this encounter[facility]25 NoteHNO ID: [id number] Author: PHUC MARTINES, DO Service: ? Author Type: Physician Type: Progress Notes Filed: 01/20/2025 20:54 Note Text: CC: iLsa Lucero is a 69 year old female who presents to the office for follow up HPI: HTN, recently controlled, no further dizziness. No chest pain/pressure. Has chronic dyspnea. No new edema or SINHA's or syncope symptoms. IFG, dyslipidemia, knows needs to work on weight loss efforts, is currently diet controlled Hair thinning, fatigue, fine hairer states that she is concerned there is a cause She has had a lot of stress with her passing away recently and wondering is this affected her. Feels she is coping okay. 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 No heart cath. Diverticulosis of colon (without mention of hemorrhage) Essential hypertension, benign Fibrocystic breast Former smoker Internal hemorrhoids without mention of complication Leiomyoma of uterus, unspecified Obstructive sleep apnea Mild. Not prescribed CPAP, only 2L nasal O2. PAST SURGICAL HISTORY Procedure Laterality Date BREAST LUMPECTOMY HX Right 1997 COLONOSCOPY FLX DX W/COLLJ SPEC WHEN PFRMD 08/27/08 repeat due 2017 COLONOSCOPY FLX DX W/COLLJ SPEC WHEN PFRMD 09/10/2018 Colonoscopy - due 2027 INGUINAL HERNIA REPAIR HX 1976 bilateral PAST SURGICAL HISTORY OF hemangioma left cheek REMOVAL OF IMPACTED TOOTH - COMPLETELY BONY WISDOM TEETH Current Outpatient Medications Medication Sig albuterol HFA (PROVENTIL HFA, VENTOLIN HFA) 90 mcg/actuation inhaler Inhale 2 Puffs as instructed every 6 hours as needed for wheezing/shortness of breath. ajkufvdjzof-yxeqmptmh-jcjgitte (TRELEGY ELLIPTA) 200-62.5-25 mcg inhalation powder Inhale 1 Puff as instructed once daily. triamterene-hydroCHLOROthiazide (DYAZIDE) 37.5-25 mg per capsule Take 1 capsule by mouth once daily. amLODIPine (NORVASC) 10 mg tablet Take 1 tablet by mouth once daily. triamcinolone acetonide (KENALOG) 0.5 % cream Apply 1 application to affected area two times a day as needed (foot rash, eczema). For rash/itching. Apply sparingly. Avoid face/skin fold. (Patient not taking: Reported on 12/25/2024) ipratropium-albuterol (DUONEB) 0.5 mg-3 mg(2.5 mg base)/3 mL nebu Inhale 3 mL as instructed four times daily. Inhale via nebulizer over 5-15 minutes. OXYGEN, HOME THERAPY, 3.5L at night and 6L with exertion COMPOUNDED PRESCRIPTION Please dispense nebulizer and supply kit, including tubing, mouth piece, and hose. Assoc diagnosis: J44.9. Dispense: 1 each, Refills: 99. ASCORBIC ACID/BIOFLAVONOIDS (SIVAN C ORAL) Take 1 capsule by mouth once daily. COMPOUNDED PRESCRIPTION 3.5L of O2 at night and 6L with exertion. multivitamin tablet Take 1 tablet by mouth once daily. No current facility-administered medications for this visit. ALLERGIES Allergen Reactions Aleve [Naproxen] Hives Hives, edema of hands within 1 hour of use Social History Tobacco Use Smoking status: Former Current packs/day: 0.00 Average packs/day: 1 pack/day for 38.0 years (38.0 ttl pk-yrs) Types: Cigarettes Start date: 1971 Quit date: 12/20/2008 Years since quittin.0 Smokeless tobacco: Never Tobacco comments: Parents smoked in childhood home. Spouse smokes, not in home. Vaping Use Vaping status: Never Used Substance Use Topics Alcohol use: Yes Alcohol/week: 6.0 - 12.0 standard drinks of alcohol Types: 6 - 12 Cans of Beer (12oz) per week Drug use: No ROS: See Hpi PE: BP 138/70 Pulse 72 Temp (Src) 97 (Left Tympanic) Resp 20 Wt 264 lb (119.8kg) Gen: AANDOX3, NAD, non-toxic appearing HEENT: PERRLA, wearing glasses, EOMs intact b/l, nares without drainage, pharynx without erythema, exudate, lesions, or drainage. Uvula midline. Neck: No LAD, no thyromegaly, no meningismus. CV: RRR, no murmur, normal s1s2 Lungs: no rhonchi or rales or wheezes, mildly diminished bases and prolonged expiratory phase diffusely Oxygen per nasal canula in place in office Trace symmetric edema, varicose veins present Abd: soft, overweight/obese ASSESSMENT/PLAN: 1. Medicare annual wellness visit, subsequent - ICD9: V70.0, ICD10: Z00.00 (primary diagnosis) - Counseled on healthy diet and regular exercise - Discussed need and benefit for weight loss. BMI 45.32 kg/(m2) 2. Hair thinning - ICD9: 704.00, ICD10: L65.9 Labs as ordered May also be related to her recent increased stressors with illness and of her as well. - THYROID STIMULATING HORMONE - T4 FREE/FREE THYROXINE - T3, FREE - VITAMIN B12 - FOLATE, SERUM - IRON AND TIBC 3. Fatigue, unspecified type - ICD9: 780.79, ICD10: (more content not included)...[facility]03-26-2025 History of Present illness Narrative* Phuc Martines, DO - 01/20/2025 8:50 PM EDT CC: Lisa Lucero is a 69 year old female who presents to the office for follow up HPI: HTN, recently controlled, no further dizziness. No chest pain/pressure. Has chronic dyspnea. No newedema or SINHA's or syncope symptoms. IFG, dyslipidemia, knows needs to work on weight loss efforts, is currently diet controlled Hair thinning, fatigue, fine hairer states that she is concerned there is a cause She has had a lot of stress with her passing away recently and wondering is this affected her. Feels she is coping okay. Has support from her children COPD oxygen dependent, stage 3., seeing Rat Exterminator- recently had jillianaleksander increased and feels this is helping her PAST MEDICAL HISTORY Diagnosis Date Chronic hypoxemic respiratory failure (HCC) COPD (chronic obstructive pulmonary disease) (HCC) 02/03/2010 Coronary artery disease No NE, CHF. No heart cath. Diverticulosis of colon (without mention of hemorrhage) Essential hypertension, benign Fibrocystic breast Former smoker Internal hemorrhoids without mention of complication Leiomyoma of uterus, unspecified Obstructive sleep apnea Mild. Not prescribed CPAP, only 2L nasal O2. PAST SURGICAL HISTORY Procedure Laterality Date BREAST LUMPECTOMY HX Right 1997 COLONOSCOPY FLX DX W/COLLJ SPEC WHEN PFRMD 08/27/08 repeat due 2017 COLONOSCOPY FLX DX W/COLLJ SPEC WHEN PFRMD 09/10/2018 Colonoscopy - due 2027 INGUINAL HERNIA REPAIR HX 1975 bilateral PAST SURGICAL HISTORY OF hemangioma left cheek REMOVAL OF IMPACTED TOOTH - COMPLETELY BONY WISDOM TEETH Current Outpatient Medications Medication Sig albuterol HFA (PROVENTIL HFA, VENTOLIN HFA) 90 mcg/actuation inhaler Inhale 2 Puffs as instructed every 6 hours as needed for wheezing/shortness of breath. ynrhatmknfk-ctywpzdur-nciimnro (TRELEGY ELLIPTA) 200-62.5-25 mcg inhalation powder Inhale 1 Puff asinstructed once daily. triamterene-hydroCHLOROthiazide (DYAZIDE) 37.5-25 mg per capsule Take 1 capsule by mouth once daily. amLODIPine (NORVASC) 10 mg tablet Take 1 tablet by mouth once daily. triamcinolone acetonide (KENALOG) 0.5 % cream Apply 1 application to affected area two times a day as needed (foot rash, eczema). For rash/itching. Apply sparingly. Avoid face/skin fold. (Patient nottaking: Reported on 12/25/2024) ipratropium-albuterol (DUONEB) 0.5 mg-3 mg(2.5 mg base)/3 mL nebu Inhale 3 mL as instructed four times daily. Inhale via nebulizer over 5-15 minutes. OXYGEN, HOME THERAPY, 3.5L at night and 6L with exertion COMPOUNDED PRESCRIPTION Please dispense nebulizer and supply kit, including tubing, mouth piece, and hose. Assoc diagnosis: J44.9. Dispense: 1 each, Refills: 99. ASCORBIC ACID/BIOFLAVONOIDS (SIVAN C ORAL) Take 1 capsule by mouth once daily. COMPOUNDED PRESCRIPTION 3.5L of O2 at night and 6L with exertion. multivitamin tablet Take 1 tablet by mouth once daily. No current facility-administered medications for this visit. ALLERGIES Allergen Reactions Aleve [Naproxen] Hives Hives, edema of hands within 1 hour of use Social History Tobacco Use Smoking status: Former Current packs/day: 0.00 Average packs/day: 1 pack/day for 38.0 years (38.0 ttl pk-yrs) Types: Cigarettes Start date: 1971 Quit date: 12/20/2008 Years since quittin.0 Smokeless tobacco: Never Tobacco comments: Parents smoked in childhood home. Spouse smokes, not in home. Vaping Use Vaping status: Never Used Substance Use Topics Alcohol use: Yes Alcohol/week: 6.0 - 12.0 standard drinks of alcohol Types: 6 - 12 Cans of Beer (12oz) per week Drug use: No ROS: See Hpi PE: BP 138/70 Pulse 72 Temp (Src) 97 (Left Tympanic) Resp 20 Wt 264 lb (119.8kg) Gen: A&OX3, NAD, non-toxic appearing HEENT: PERRLA, wearing glasses, EOMs intact b/l, nares without drainage, pharynx without erythema, exudate, lesions, or drainage. Uvula midline. Neck: No LAD, no thyromegaly, no meningismus. CV: RRR, no murmur, normal s1s2 Lungs: no rhonchi or rales or wheezes, mildly diminished bases and prolonged expiratory phase diffusely Oxygen per nasal canula in place in office Trace symmetric edema, varicose veins present Abd: soft, overweight/obese ASSESSMENT/PLAN: 1. Medicare annual wellness visit, subsequent - ICD9: V70.0, ICD10: Z00.00 (primary diagnosis) - Counseled on healthy diet and regular exercise - Discussed need and benefit for weight loss. BMI 45.32 kg/(m^2) 2. Hair thinning - ICD9: 704.00, ICD10: L65.9 Labs as ordered May also be related to her recent increased stressors with illness and of her as well. - THYROID STIMULATING HORMONE - T4 FREE/FREE THYROXINE - T3, FREE - VITAMIN B12 - FOLATE, SERUM - IRON AND TIBC 3. Fatigue, unspecified type - ICD9: 780.79, ICD10: R53.83 Labs as ordered May also be related to her recent increased stressors with illness and of her as well. - THYROID STIMULATING HORMONE - T4 FREE/FREE THYROXINE - T3, FREE - VITAMIN B12 - FOLATE, SERUM - IRON AND TIBC 4. Impaired fasting glucose - ICD9: 790.21, ICD10: R73.01 Diet controlled 5. Dyslipidemia - ICD9: 272.4, ICD10: E78.5 - Uncontrolled - Counseled on healthy diet and regular exercise - Discussed need for and benefit of weight loss. BMI 45.32 kg/(m^2) 6. Vitamin D deficiency - ICD9: 268.9, ICD10: E55.9 Continue supplement 7. Stage 3 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) - ICD9: 496, ICD10: J44.9 F/u with jackscrew man, is oxygen dependent 8. Essential hypertension - ICD9: 401.9, ICD10: I10 - Controlled - Continue current medications - Recommend home blood pressure monitoring, to bring results to next visit - Encouraged sodium restriction, DASH or Mediterranean diet - Recommend regular aerobic exercise 9. Oxygen dependent - ICD9: V46.2, ICD10: Z99.81 See above 10. Morbid obesity with BMI of 45.0-49.9, adult (HCC) - ICD9: 278.01, V85.42, ICD10: E66.01, Z68.42 Stable - Behavioral intervention and - Eat well program Phuc Martines DO Return if no improvement. Follow up with Phuc Martines DO. To ER if develops chest pain, shortness of breath. Discussed risks, benefits, alternatives, and potential side effects of medications. Patient/Guardian expressed understanding and agreed with the plan. See patient instructions. Phuc Martines DO [address] [place] [address] * Phuc Martines DO - 01/20/2025 8:48 PM EDT Lisa Lucero is a 69 year old female here for a Medicare wellness visit. Medicare Health Risk Assessment General Health Fair Exercise: Minutes/Day 0 min Exercise: Days/Week 0 days Alcohol: Daily Use 4 or more times a week Alcohol: Drinks/Day 3 or 4 Alcohol: 6 or more drinks Weekly Feel off balance intermittently Concerns: Teeth/Dentures no Concerns: Sexual function no Troubled by feelings no Frequency: Eating healthy diet yes ADLs requiring help no Safety precautions in home/vehicle yes Smoke, vape, chews tobacco no Difficulty hearing no Difficulty seeing Has glasses Current Providers Specialists: I have reviewed specialist-related care of the patient in the medical record. Medical/Family history review Reviewed and updated problem list, medical/surgical/family/social history, medications, and allergies. Opioid use review Opioid Medications (last 90 days) No data to display Anxiety/Depression screening PHQ-9 Score: 2 (Minimal Depression) EMERALD-7 Score: 0. Recommendation: no further intervention at this time Cognitive screening Cognitive screening reviewed and No further action needed (score 3-5). Functional Observation Was the patient's Timed Up & Go test unsteady or >= 12 seconds? No Advance Care Planning Surrogate decision maker and/or advance care plan documented Measurements BP 138/70 Pulse 72 Temp 36.1 C (97 F) (Left Tympanic) Resp 20 Wt 119.7 kg (264 lb) BMI 45.32 kg/m Vision Screening: Follows with optometry/ophthalmology Assessment/Plan Medicare annual wellness visit, subsequent () - Counseled on healthy diet and regular exercise - Fall avoidance information provided - Personalized prevention plan provided - Discussed need for and benefit of weight loss. BMI 45.32 kg/(m^2) Phuc Martines DO documented in [facility]25 NoteHNO ID: [id number] Author: PHUC MARTINES DO Service: ? Author Type: Physician Type: Progress Notes Filed: 01/20/2025 20:54 Note Text: Lisa Lucero is a 69 year old female here for a Medicare wellness visit. Medicare Health Risk Assessment General Health Fair Exercise: Minutes/Day 0 min Exercise: Days/Week 0 days Alcohol: Daily Use 4 or more times a week Alcohol: Drinks/Day 3 or 4 Alcohol: 6 or more drinks Weekly Feel off balance intermittently Concerns: Teeth/Dentures no Concerns: Sexual function no Troubled by feelings no Frequency: Eating healthy diet yes ADLs requiring help no Safety precautions in home/vehicle yes Smoke, vape, chews tobacco no Difficulty hearing no Difficulty seeing Has glasses Current Providers Specialists: I have reviewed specialist-related care of the patient in the medical record. Medical/Family history review Reviewed and updated problem list, medical/surgical/family/social history, medications, and allergies. Opioid use review Opioid Medications (last 90 days) No data to display Anxiety/Depression screening PHQ-9 Score: 2 (Minimal Depression) EMERALD-7 Score: 0. Recommendation: no further intervention at this time Cognitive screening Cognitive screening reviewed and No further action needed (score 3-5). Functional Observation Was the patient's Timed Up AND Go test unsteady or >= 12 seconds? No Advance Care Planning Surrogate decision maker and/or advance care plan documented Measurements BP 138/70 Pulse 72 Temp 36.1 ?C (97 ?F) (Left Tympanic) Resp 20 Wt 119.7 kg (264 lb) BMI 45.32 kg/m? Vision Screening: Follows with optometry/ophthalmology Assessment/Plan Medicare annual wellness visit, subsequent (Z00.00) - Counseled on healthy diet and regular exercise - Fall avoidance information provided - Personalized prevention plan provided - Discussed need for and benefit of weight loss. BMI 45.32 kg/(m2) [facility]* Patient Instructions* Lisa Goodman APRN.CNP - 12/25/2024 11:59 AM EST Increase the dose of Trelegy. Remember to rinse after you use. If there is any concern with cost, we can try splitting Trelegy into 2 different inhalers. Monitor your oxygen levels with activity especially. Our last testing shows you require 6 liter of oxygen with activity. documented in this encounterSelect [facility]-28-[facility]25 History of Present illness Narrative* Lisa Goodman APRN.CNP - 12/25/2024 11:30 AM EST Images from the original note were not included. Pulmonary Medicine Patients name: Lisa Palumbo PCP: Phuc Martines DO CC: follow-up COPD HPI: Lisa Lucero is a 69 year old female former 49-rfpa-hrdj smoker, quitting in 2008 with PMH significant for morbid obesity, severe COPD, chronic hypoxemic respiratory failure, CAD, HTN, andOSA. Current therapy consists of Trelegy Ellipta with as needed albuterol. On supplemental O2. ABRAHAM 05/2024 overall feeling well. Her main respiratory symptoms was BRAGG. Follows with LCS and had CTin September. It showed new inflammatory opacities but did not have any new or concerning infectioussymptoms. Since her last visit, she reports gradual worsening of exertional dyspnea. Notes she is SOB with showering. Today, she reports occasional cough, rare sputum. No hemoptysis. Has PND that is occasionally bothersome. Notes wheezing occasionally. Denies dyspnea at rest. No fevers, chills, or night sweats. No unintended weight loss or lower extremity edema. No recent hospitalizations or ED visits or upper respiratory infections. Albuterol and Duoneb use is rare, typically only when sick. She reports compliance with supplemental O2, however she consistently uses 3.5L even with exertion.Review of previous oximetry testing shows 6L with exertion. Has pulse ox at home but rarely checks. DME: [facility] PAST MEDICAL HISTORY Diagnosis Date Chronic hypoxemic respiratory failure (HCC) COPD (chronic obstructive pulmonary disease) (HCC) 02/03/2010 Coronary artery disease No NE, CHF. No heart cath. Diverticulosis of colon (without mention of hemorrhage) Essential hypertension, benign Fibrocystic breast Former smoker Internal hemorrhoids without mention of complication Leiomyoma of uterus, unspecified Obstructive sleep apnea Mild. Not prescribed CPAP, only 2L nasal O2. Allergies: Aleve [Naproxen] Hives Comment:Hives, edema of hands within 1 hour of use Medication List Accurate as of December 23, 2024 3:36 PM. If you have any questions, ask your nurse or doctor. CONTINUE taking these medications albuterol HFA 90 mcg/actuation inhaler Commonly known as: PROVENTIL HFA, VENTOLIN HFA Inhale 2 Puffs as instructed every 6 hours as needed for wheezing/shortness of breath. amLODIPine 10 mg tablet Commonly known as: NORVASC Take 1 tablet by mouth once daily. COMPOUNDED PRESCRIPTION COMPOUNDED PRESCRIPTION Please dispense nebulizer and supply kit, including tubing, mouth piece, and hose. Assoc diagnosis:J44.9. Dispense: 1 each, Refills: 99. SIVAN C ORAL ipratropium-albuterol 0.5 mg-3 mg(2.5 mg base)/3 mL Nebu Commonly known as: DUONEB Inhale 3 mL as instructed four times daily. Inhale via nebulizer over 5-15 minutes. multivitamin tablet OXYGEN (HOME THERAPY) 3.5L at night and 6L with exertion TRELEMAUREEN ELLIPTA 100-62.5-25 mcg inhalation powder Generic drug: alsxexkejre-tfdgxidvy-aqntfaep USE 1 INHALATION DAILY INSTRUCTED triamcinolone acetonide 0.5 % cream Commonly known as: KeNALog Apply 1 application to affected area two times a day as needed (foot rash, eczema). For rash/itching. Apply sparingly. Avoid face/skin fold. triamterene-hydroCHLOROthiazide 37.5-25 mg per capsule Commonly known as: DYAZIDE Take 1 capsule by mouth once daily. DATA: I personally reviewed and analyzed all labs, radiographs and available pulmonary function testing 05/2023 PFT: 02/2022 Spirometry indicates very severe obstruction. CT Chest: 09/2024 IMPRESSION: LungRADS category: 0 LungRADS modifier: None LungRADS 0 reason: n/a Recommendations: Additional lung cancer screening CT images and/or comparison to prior chest CT examinations is needed. Reference: [employer]. Lung CT Screening Reporting and Data System (Lung-RADS). Available at: http://www.acr.org/Quality-Safety/Resources/LungRADS Personal Lines Account Manager: PAT Transcribe Date/Time: Oct 19 2024 11:21A Dictated by : VIDAL PULLIAM MD This examination was interpreted and the report reviewed and electronically signed by: VIDAL PULLIAM MD on Oct 19 2024 11:28AM EST Results-Findings * * *Final Report* * * DATE OF EXAM: Oct 19 2024 10:09AM [facility] 0562 - CT LUNG SCREEN [facility] / PROCEDURE REASON: Former cigarette smoker * * * * Physician Interpretation * * * * EXAMINATION: CHEST CT WITHOUT CONTRAST (LOW-DOSE CT LUNG CANCER SCREENING PROTOCOL) CLINICAL HISTORY: Lung cancer LDCT screening ? absence of signs or symptoms of lung cancer. Personal history of nicotine dependence. Subsequent (annual) Technique: Spiral CT acquisition of the chest from the thoracic inlet to the upper abdomen without contrast. MQ: CTLCS_6 Patient characteristics: * Bkxk-vu-Wuons: 1955; Age at exam: 69 years * Gender: Female * Lung Disease: Asymptomatic (no signs or symptoms of lung disease) * Number of Pack Years: 38 * Current smoker (=0) or Number of Years since Quit: 15 * Ordering provider and NPI: MARICRUZ CAMP [id number] * Interpreting radiologist and NPI: Nicole [id number] Exam acquisition parameters: * Exam Date: 10/19/2024 10:09 AM * Site: [facility] * * CT System Ms Sql Server Developer: Siemens * CT System Model: Sensation * Tube Current-Time (mA-sec): 44 * Peak Voltage (kV): 120V * Scan Time (sec): 11.36 * Scan Volume (z-length, cm): -30.30 * Pitch: 0.75 * Slice Thickness (mm): 1.5 * CT Dose-Length Product: 134 mGy*cm * CT Dose Index: 3.42mGy * CT Dose Reduction Method: Automated exposure control(AEC) and iterative recon COMPARISON: Prior lung screen dated 10/08/2023 RESULT: Are nodules present? Yes, 6 or more nodules Other lung nodule comments: 8 mm nodule left upper lobe (99) and surrounding ill-defined nodular opacities new from prior. Nodular consolidation right middle lobe measuring at least 16 mm (198) new from prior. 11 mm right apical nodule (32) unchanged. 6 mm subpleural right lower lobe nodule (181) unchanged. Other findings: Trivial coronary calcifications. Mild degenerative changes of the thoracic spine. Bronchial thickening and severe upper lobe predominant emphysema. Patchy groundglass opacity in the left upper lobe and right lower lobe as well as peribronchial consolidation in the right middle lobe and patchy nodular consolidation in the anterior left upper lobe most likely representing infection. Incidental coronary calcium as automatically processed and calculated using AI: Total Coronary Calcium Score = [1-99] Agatston Units Percentile Rank (age and gender matched relative to reference population): [25th-75th] percentile* [* https://www.pettit-nhlbi.org/calcium/input.aspx] IMMUNIZATIONS Prevnar - 01/2023 Pneumovax 23 - xx Influenza - 07/2023 COVID-19 - xx RSV- xx Review of Systems Constitutional: Negative for activity change, appetite change, fever and unexpected weight change. HENT: Positive for postnasal drip. Negative for mouth sores, sinus pressure and sinus pain. Respiratory: Positive for cough and shortness of breath. Negative for chest tightness. Cardiovascular: Negative for chest pain, palpitations and leg swelling. Neurological: Negative for weakness. BP 134/64 (BP Site: Right Arm, BP Position: Sitting) Pulse 92 Resp 20 Wt 119.1 kg (262 lb 9.6oz) SpO2 91% BMI 45.08 kg/m Physical Exam Vitals reviewed. Constitutional: General: She is not in acute distress. Appearance: Normal appearance. She is not ill-appearing. HENT: Nose: No rhinorrhea. Mouth/Throat: Mouth: Mucous membranes are moist. Pharynx: No oropharyngeal exudate. Cardiovascular: Rate and Rhythm: Normal rate and regular rhythm. Heart sounds: Normal heart sounds. Pulmonary: Effort: Pulmonary effort is normal. No respiratory distress. Breath sounds: No wheezing or rhonchi. Musculoskeletal: Right lower leg: No edema. Left lower leg: No edema. Lymphadenopathy: Cervical: No cervical adenopathy. Skin: General: Skin is warm and dry. Capillary Refill: Capillary refill takes less than 2 seconds. Neurological: General: No focal deficit present. Mental Status: She is alert. ASSESSMENT/PLAN: 1. Stage 3 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) - ICD9: 496, ICD10: J44.9 (primary diagnosis) - progressively worsening exertional dyspnea. - increase Trelegy. Instructed to rinse mouth after use. - encouraged use of Duoneb or Albuterol as needed. 2. Chronic respiratory failure with hypoxia ([facility]) - ICD9: 518.83, 799.02, ICD10: J96.11 - reviewed oximetry with ambulation testing done in May 2023 that showed 6L O2 with exertion. Has been using 3.5L continuously. Encouraged 6L and monitoring of oxygen sats at home. If she continues to be symptomatic or note that oxygen saturations are not adequate, can repeat testing. 3. Former cigarette smoker - ICD9: V15.82, ICD10: Z87.891 - enrolled in [facility] program - due for CT and follow-up in December F/u 6 months Portions of this documentation were copied and pasted from previous office visit notes in order to provide a cohesive continuity of the history. The note has been reviewed and edited and updated as necessary. Lisa Goodman APRN.ELVIA I spent a total of 27 minutes on the date of the service which included preparing to see the patient, xtaz-aw-aauo patient care, completing clinical documentation, performing a medically appropriate examination, counseling and educating the patient/family/caregiver, and ordering medications, tests,or procedures. documented in this encounterSelect [facility]-28-2025 NoteHNO ID: [id number] Author: LISA GOODMANJAKI.CULTURE MANAGER Service: ? Author Type: Nurse Practitioner Type: Progress Notes Filed: 12/25/2024 12:29 Note Text: Pulmonary Medicine Patients name: Lisa Palumbo PCP: Phuc Martines DO CC: follow-up COPD HPI: Lisa Lucero is a 69 year old female former 26-dzam-oeec smoker, quitting in 2008 with PMH significant for morbid obesity, severe COPD, chronic hypoxemic respiratory failure, CAD, HTN, and ROXY. Current therapy consists of Trelegy Ellipta with as needed albuterol. On supplemental O2. ABRAHAM 05/2024 overall feeling well. Her main respiratory symptoms was BRAGG. Follows with LCS and had CT in September. It showed new inflammatory opacities but did not have any new or concerning infectious symptoms. Since her last visit, she reports gradual worsening of exertional dyspnea. Notes she is SOB with showering. Today, she reports occasional cough, rare sputum. No hemoptysis. Has PND that is occasionally bothersome. Notes wheezing occasionally. Denies dyspnea at rest. No fevers, chills, or night sweats. No unintended weight loss or lower extremity edema. No recent hospitalizations or ED visits or upper respiratory infections. Albuterol and Duoneb use is rare, typically only when sick. She reports compliance with supplemental O2, however she consistently uses 3.5L even with exertion. Review of previous oximetry testing shows 6L with exertion. Has pulse ox at home but rarely checks. DME: [facility] O2 PAST MEDICAL HISTORY Diagnosis Date Chronic hypoxemic respiratory failure (HCC) COPD (chronic obstructive pulmonary disease) (HCC) 02/03/2010 Coronary artery disease No NE, CHF. No heart cath. Diverticulosis of colon (without mention of hemorrhage) Essential hypertension, benign Fibrocystic breast Former smoker Internal hemorrhoids without mention of complication Leiomyoma of uterus, unspecified Obstructive sleep apnea Mild. Not prescribed CPAP, only 2L nasal O2. Allergies: Aleve [Naproxen] Hives Comment:Hives, edema of hands within 1 hour of use Medication List Accurate as of December 23, 2024 3:36 PM. If you have any questions, ask your nurse or doctor. CONTINUE taking these medications albuterol HFA 90 mcg/actuation inhaler Commonly known as: PROVENTIL HFA, VENTOLIN HFA Inhale 2 Puffs as instructed every 6 hours as needed for wheezing/shortness of breath. amLODIPine 10 mg tablet Commonly known as: NORVASC Take 1 tablet by mouth once daily. COMPOUNDED PRESCRIPTION COMPOUNDED PRESCRIPTION Please dispense nebulizer and supply kit, including tubing, mouth piece, and hose. Assoc diagnosis: J44.9. Dispense: 1 each, Refills: 99. SIVAN C ORAL ipratropium-albuterol 0.5 mg-3 mg(2.5 mg base)/3 mL Nebu Commonly known as: DUONEB Inhale 3 mL as instructed four times daily. Inhale via nebulizer over 5-15 minutes. multivitamin tablet OXYGEN (HOME THERAPY) 3.5L at night and 6L with exertion TRELEGY ELLIPTA 100-62.5-25 mcg inhalation powder Generic drug: jlqekwqaiof-rgqjyarjw-jnzphvxx USE 1 INHALATION DAILY INSTRUCTED triamcinolone acetonide 0.5 % cream Commonly known as: KeNALog Apply 1 application to affected area two times a day as needed (foot rash, eczema). For rash/itching. Apply sparingly. Avoid face/skin fold. triamterene-hydroCHLOROthiazide 37.5-25 mg per capsule Commonly known as: DYAZIDE Take 1 capsule by mouth once daily. DATA: I personally reviewed and analyzed all labs, radiographs and available pulmonary function testing 05/2023 PFT: 02/2022 Spirometry indicates very severe obstruction. CT Chest: 09/2024 IMPRESSION: LungRADS category: 0 LungRADS modifier: None LungRADS 0 reason: n/a Recommendations: Additional lung cancer screening CT images and/or comparison to prior chest CT examinations is needed. Reference: [employer]. Lung CT Screening Reporting and Data System (Lung-RADS). Available at: http://www.acr.org/Quality-Safety/Resources/LungRADS Personal Lines Account Manager: PAT Transcribe Date/Time: Oct 19 2024 11:21A Dictated by : VIDAL PULLIAM MD This examination was interpreted and the report reviewed and electronically signed by: VIDAL PULLIAM MD on Oct 19 2024 11:28AM EST Results-Findings * * *Final Report* * * DATE OF EXAM: Oct 19 2024 10:09AM [facility] 0562 - CT LUNG SCREEN WO IVCON / PROCEDURE REASON: Former cigarette smoker * * * * Physician Interpretation * * * * EXAMINATION: CHEST CT WITHOUT CONTRAST (LOW-DOSE CT LUNG CANCER SCREENING PROTOCOL) CLINICAL HISTORY: Lung cancer LDCT screening ? absence of signs or symptoms of lung cancer. Personal history of nicotine dependence. Subsequent (annual) Technique: Spiral CT acquisition of the chest from the thoracic inlet to the upper abdomen without contrast. (more content not included)...[facility]02-06-2025 History of Present illness Narrative* Jt Cheney Mammo Tech - 12/03/2024 11:10 AM EST Radiology Service Progress Note PATIENT NAME: Lisa Lucero DATE OF SERVICE: December 03, 2024 TIME: 11:01 AM PATIENT IDENTITY VERIFICATION COMPLETED USING TWO (2) IDENTIFIERS: Name and Date of confirmedby patient verbally. FALL SCREENING: Has the patient had 2 falls in the last year or 1 fall with injury or currently using an Ambulatory Assistive Device (Walker, Cane, Wheelchair, Crutches, etc.)? No PATIENT GENDER DATA: Assigned female at . status: : No status:NO. PATIENT RELEVANT IMPLANT DATA REVIEWED: Not Applicable PATIENT PRESENTS WITH AN IMPLANTABLE OR ATTACHED MULTILITH OPERATOR: No RADIOLOGY DEPARTMENT: Mammography PERIPHERAL IV DATA: Not applicable SIGNED BY: Padma Bess December 03, 2024 11:01 AM documented in this encounterSelect [facility]-2025 NoteHNO ID: [id number] Author: JT CHENEY Mammo Tech Service: ? Author Type: [employer]urbines Assembler Type: Progress Notes Filed: 12/03/2024 11:01 Note Text: Radiology Service Progress Note PATIENT NAME: Lisa Lucero DATE OF SERVICE: December 03, 2024 TIME: 11:01 AM PATIENT IDENTITY VERIFICATION COMPLETED USING TWO (2) IDENTIFIERS: Name and Date of confirmed by patient verbally. FALL SCREENING: Has the patient had 2 falls in the last year or 1 fall with injury or currently using an Ambulatory Assistive Device (Walker, Cane, Wheelchair, Crutches, etc.)? No PATIENT GENDER DATA: Assigned female at . status: : No status: NO. PATIENT RELEVANT IMPLANT DATA REVIEWED: Not Applicable PATIENT PRESENTS WITH AN IMPLANTABLE OR ATTACHED MULTILITH OPERATOR: No RADIOLOGY DEPARTMENT: Mammography PERIPHERAL IV DATA: Not applicable SIGNED BY: Jt Cheney MesoCoat December 03, 2024 11:01 [facility]01-31-2025 Telephone encounter Note* Telephone Encounter - Essence Ortiz RN - 11/27/2024 3:53 PM EST Patient calls and states that she needs refills of Trelegy sent to [facility]. Patient also states that she has appointment with provider on 01/20/2025 and asking for labs to be placed priorto appointment. The patient has been identified by name and date of : Yes Caregiver verified no other encounters exist for this prescription request: Yes Caregiver confirmed with patient/requestor that no other refills are due, in the near future, with this provider at this time: Yes The last office visit in the department: 03/13/2024 Does the patient have a future office visit with this provider/department: Yes 01/20/2025 Requested Prescriptions Pending Prescriptions Disp Refills eabglbcnonj-yxndviadp-pkzptcif (TRELEGY ELLIPTA) 100-62.5-25 mcg inhalation powder 3 Each 3 Sig: USE 1 INHALATION DAILY INSTRUCTED Essence Ortiz RN November 27, 2024 3:54 PM [facility]01-31-2025 Miscellaneous Notes* Telephone Encounter - Essence Ortiz RN - 11/27/2024 3:53 PM EST Patient calls and states that she needs refills of Trelegy sent to [facility]. Patient also states that she has appointment with provider on 01/20/2025 and asking for labs to be placed priorto appointment. The patient has been identified by name and date of : Yes Caregiver verified no other encounters exist for this prescription request: Yes Caregiver confirmed with patient/requestor that no other refills are due, in the near future, with this provider at this time: Yes The last office visit in the department: 03/13/2024 Does the patient have a future office visit with this provider/department: Yes 01/20/2025 Requested Prescriptions Pending Prescriptions Disp Refills apvqzfworkv-hirjlncwm-vdsqhotd (TRELEGY ELLIPTA) 100-62.5-25 mcg inhalation powder 3 Each 3 Sig: USE 1 INHALATION DAILY INSTRUCTED Essence Ortiz RN November 27, 2024 3:54 PM documented in this encounterSelect Medical [facility]01-15-2025 NoteHNO ID: [id number] Author: JULIANNE DONALD MA Service: ? Author Type: Replenishment Analyst Type: Progress Notes Filed: 11/11/2024 15:47 Note Text: POPULATION HEALTH NAVIGATION OUTREACH Action/I FOLLOW UP HCC CLOSURE Topic Due (Y or N) Comments Medicare Wellness PCP Follow up Y Mammogram Colorectal Cancer Screening A1C Dilated Retinal Exam (ABBEY) KED (UACR and eGFR) Y HCC Flu Vaccine Care Everywhere Reviewed MyChart Activation Updated Appointment Note BP CONTROL Y Reason for Outreach Care Gap/HCC or Scheduling Wellness Visits Care Gaps due: Follow-up Appointment Controlling Blood Pressure Patient Contacted: Spoke to patient/parent/or legal guardian Patient identified by name and : Yes Care Gap/HCC/Scheduling Wellness actions taken: Patient scheduled/pended orders: Follow-up Appointment Controlling Blood Pressure [facility] with LISA GOODMAN 6 MTH F/U COPD 01/25/[address] [facility] with CT [facility] (I-STAT) - LDCT [facility] MARICRUZ CAMP - LDCT 02/17/[address] [facility] with PHUC MARTINES - FOLLOW UP HCC related Navigation Signature: Julianne Donald MA November 11, 2024 3:37 [facility]01-15-2025 History of Present illness Narrative* Julianne Donald MA - 11/11/2024 3:37 PM EST POPULATION HEALTH NAVIGATION OUTREACH Action/FYI FOLLOW UP HCC CLOSURE Topic Due (Y or N) Comments Medicare Wellness PCP Follow up Y Mammogram Colorectal Cancer Screening A1C Dilated Retinal Exam (ABBEY) KED (UACR and eGFR) Y HCC Flu Vaccine Care Everywhere Reviewed MyChart Activation Updated Appointment Note BP CONTROL Y Reason for Outreach Care Gap/HCC or Scheduling Wellness Visits Care Gaps due: Follow-up Appointment Controlling Blood Pressure Patient Contacted: Spoke to patient/parent/or legal guardian Patient identified by name and : Yes Care Gap/HCC/Scheduling Wellness actions taken: Patient scheduled/pended orders: Follow-up Appointment Controlling Blood Pressure 12/25/2024 in [facility] with LISA GOODMAN - 6 MTH F/U COPD 01/25/[address] [facility] with CT [facility] (I-STAT) - LDCT 01/25/2025 in [facility] with MARICRUZ CAMP - LDCT 02/17/[address] [facility] with PHUC MARTINES - FOLLOW UP HCC related Navigation Signature: Julianne Donald MA November 11, 2024 3:37 PM documented in this encounterSelect Medical [facility]ty [facility]01-15-2025 NotePatient Outreach (NETNAV) LISA LUCERO ([id number]) 1955 F Date Time Provider Department 11/11/24 JULIANNE DONALD NETNAV During your visit today, we recorded the following information about you: Julianne Donald MA 11/11/2024 3:47 PM Signed POPULATION HEALTH NAVIGATION OUTREACH Action/FYI FOLLOW UP HCC CLOSURE Topic Due (Y or N) Comments Medicare Wellness PCP Follow up Y Mammogram Colorectal Cancer Screening A1C Dilated Retinal Exam (ABBEY) KED (UACR and eGFR) Y HCC Flu Vaccine Care Everywhere Reviewed MyChart Activation Updated Appointment Note BP CONTROL Y Reason for Outreach Care Gap/HCC or Scheduling Wellness Visits Care Gaps due: Follow-up Appointment Controlling Blood Pressure Patient Contacted: Spoke to patient/parent/or legal guardian Patient identified by name and : Yes Care Gap/HCC/Scheduling Wellness actions taken: Patient scheduled/pended orders: Follow-up Appointment Controlling Blood Pressure 12/25/2024 in [facility] with LISA GOODMAN - 6 MTH F/U COPD 01/25/[address] [facility] with CT [facility] (I-STAT) - LDCT 01/25/2025 in [facility] with MARICRUZ CAMP - LDCT 02/17/[address] [facility] with PHUC MARTINES - FOLLOW UP HCC related Navigation Signature: Julianne Donald MA November 11, 2024 3:37 PM Allergies As of Date: 11/11/2024 Noted Allergy Reaction ALEVE (NAPROXEN) 05/31/2020 4 - Hives Comments: Hives, edema of hands within 1 hour of use Date Reviewed: 10/19/2024 Reviewed by: Maricruz Camp APRN.CULTURE MANAGER - Fully Assessed Reason for Visit: Population Health Navigation Outreach [3910] Cmt: [employer] PCSA Prescriptions as of 11/11/2024 - triamterene-hydroCHLOROthiazide (DYAZIDE) 37.5-25 mg per capsule Take 1 capsule by mouth once daily. - amLODIPine (NORVASC) 10 mg tablet Take 1 tablet by mouth once daily. - gvtqpuathyj-upoxkcust-fiwigdyx (TRELEGY ELLIPTA) 100-62.5-25 mcg inhalation powder USE 1 INHALATION DAILY INSTRUCTED - triamcinolone acetonide (KENALOG) 0.5 % cream Apply 1 application to affected area two times a day as needed (foot rash, eczema). For rash/itching. Apply sparingly. Avoid face/skin fold. - ipratropium-albuterol (DUONEB) 0.5 mg-3 mg(2.5 mg base)/3 mL nebu Inhale 3 mL as instructed four times daily. Inhale via nebulizer over 5-15 minutes. - OXYGEN, HOME THERAPY, 3.5L at night and 6L with exertion - albuterol HFA (PROVENTIL HFA, VENTOLIN HFA) 90 mcg/actuation inhaler Inhale 2 Puffs as instructed every 6 hours as needed for wheezing/shortness of breath. - COMPOUNDED PRESCRIPTION Please dispense nebulizer and supply kit, including tubing, mouth piece, and hose. Assoc diagnosis: J44.9. Dispense: 1 each, Refills: 99. - ASCORBIC ACID/BIOFLAVONOIDS (SIVAN C ORAL) Take 1 capsule by mouth once daily. - COMPOUNDED PRESCRIPTION 3.5L of O2 at night and 6L with exertion. - multivitamin tablet Take 1 tablet by mouth once daily. Problem List As Of Date 11/11/2024 Noted Resolved BENIGN HYPERTENSION [I10] 07/07/2008 Tobacco use disorder [F17.200] 10/05/2011 UTERINE LEIOMYOMA NOS [D25.9] OBESITY [E66.9] 05/04/2006 10/13/2019 PLANTAR FASCIITIS [M72.2] 05/04/2006 08/19/2006 Essential hypertension [I10] 07/07/2008 PAIN FLANK [R10.9] 08/13/2008 10/13/2019 IRRITABLE COLON [K58.9] 08/13/2008 COPD (chronic obstructive pulmonary disease) (H*02/03/2010 10/13/2019 Hypoxemia [R09.02] 02/03/2010 Former smoker [Z87.891] Obstructive sleep apnea [G47.33] Well adult exam [Z00.00] 11/09/2016 10/13/2019 Stage 3 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*02/06/2017 Morbid obesity with BMI of 45.0-49.9, adult (HC*03/28/2017 Oxygen dependent [Z99.81] 05/06/2017 Acute bronchitis with chronic obstructive pulmo*11/06/2017 10/13/2019 Impaired fasting glucose [R73.01] 11/06/2017 Screening for colon cancer [Z12.11] 08/27/2018 10/13/2019 Actinic keratosis [L57.0] 05/19/2019 Routine physical examination [Z00.00] 05/19/2019 10/13/2019 Chronic respiratory failure with hypoxia (HCC) *10/13/2019 Lightheaded [R42] 01/30/2022 Vitamin D deficiency [E55.9] 01/30/2022 Dyslipidemia [E78.5] 01/30/2022 Intertrigo [L30.4] 05/01/2022 Chronic obstructive pulmonary disease (HCC) [J4*02/07/2023 Acute bronchitis with chronic obstructive pulmo*03/13/2024 Fatigue [R53.83] 03/13/2024 Thoracic aortic ectasia (HCC) [I77.810] 03/13/2024 Encounter Status:Closed by JULIANNE DONALD on 11/11/24[facility]01-09-2025 NoteHNO ID: [id number] Author: PATRICIA KEVIN HUC Service: ? Author Type: Produce Weigher Type: Progress Notes Filed: 11/05/2024 14:22 Note Text: [facility] LUNG CANCER SCREENING FOLLOWUP ADVANCED: Diagnosis: Lung Nodule Recommendation: CT Scan Follow Up Due Date: 01/25/2025 All Follow Up Scheduled: Yes Pulmonary Follow Up Type: Lung Nodule Surveillance Patient should be added to the Lung Cancer Screening Followup Report: No Lung Cancer Screening Program Location: [facility] 11-05-2024 History of Present illness Narrative* Patricia Kevin HUC - 11/05/2024 2:22 PM EST [facility] LUNG CANCER SCREENING FOLLOWUP ADVANCED: Diagnosis: Lung Nodule Recommendation: CT Scan Follow Up Due Date: 01/25/2025 All Follow Up Scheduled: Yes Pulmonary Follow Up Type: Lung Nodule Surveillance Patient should be added to the Lung Cancer Screening Followup Report: No Lung Cancer Screening Program [facility] NotePatient Outreach (PULMMN) LISA LUCERO ([id number]) 1955 F Date Time Provider Department 11/05/24 PATRICIA KEVIN During your visit today, we recorded the following information about you: Patricia Kevin HUC 11/05/2024 2:22 PM Signed [facility] LUNG CANCER SCREENING FOLLOWUP ADVANCED: Diagnosis: Lung Nodule Recommendation: CT Scan Follow Up Due Date: 01/25/2025 All Follow Up Scheduled: Yes Pulmonary Follow Up Type: Lung Nodule Surveillance Patient should be added to the Lung Cancer Screening Followup Report: No Lung Cancer Screening Program Location: [facility] Allergies As of Date: 11/05/2024 Noted Allergy Reaction ALEVE (NAPROXEN) 05/31/2020 4 - Hives Comments: Hives, edema of hands within 1 hour of use Date Reviewed: 10/19/2024 Reviewed by: Maricruz Camp APRN.CULTURE MANAGER - Fully Assessed Prescriptions as of 11/05/2024 - triamterene-hydroCHLOROthiazide (DYAZIDE) 37.5-25 mg per capsule Take 1 capsule by mouth once daily. - amLODIPine (NORVASC) 10 mg tablet Take 1 tablet by mouth once daily. - ziwkqfgzghu-jxljmurly-oekmmykl (TRELEGY ELLIPTA) 100-62.5-25 mcg inhalation powder USE 1 INHALATION DAILY INSTRUCTED - triamcinolone acetonide (KENALOG) 0.5 % cream Apply 1 application to affected area two times a day as needed (foot rash, eczema). For rash/itching. Apply sparingly. Avoid face/skin fold. - ipratropium-albuterol (DUONEB) 0.5 mg-3 mg(2.5 mg base)/3 mL nebu Inhale 3 mL as instructed four times daily. Inhale via nebulizer over 5-15 minutes. - OXYGEN, HOME THERAPY, 3.5L at night and 6L with exertion - albuterol HFA (PROVENTIL HFA, VENTOLIN HFA) 90 mcg/actuation inhaler Inhale 2 Puffs as instructed every 6 hours as needed for wheezing/shortness of breath. - COMPOUNDED PRESCRIPTION Please dispense nebulizer and supply kit, including tubing, mouth piece, and hose. Assoc diagnosis: J44.9. Dispense: 1 each, Refills: 99. - ASCORBIC ACID/BIOFLAVONOIDS (SIVAN C ORAL) Take 1 capsule by mouth once daily. - COMPOUNDED PRESCRIPTION 3.5L of O2 at night and 6L with exertion. - multivitamin tablet Take 1 tablet by mouth once daily. Problem List As Of Date 11/05/2024 Noted Resolved BENIGN HYPERTENSION [I10] 07/07/2008 Tobacco use disorder [F17.200] 10/05/2011 UTERINE LEIOMYOMA NOS [D25.9] OBESITY [E66.9] 05/04/2006 10/13/2019 PLANTAR FASCIITIS [M72.2] 05/04/2006 08/19/2006 Essential hypertension [I10] 07/07/2008 PAIN FLANK [R10.9] 08/13/2008 10/13/2019 IRRITABLE COLON [K58.9] 08/13/2008 COPD (chronic obstructive pulmonary disease) (H*02/03/2010 10/13/2019 Hypoxemia [R09.02] 02/03/2010 Former smoker [Z87.891] Obstructive sleep apnea [G47.33] Well adult exam [Z00.00] 11/09/2016 10/13/2019 Stage 3 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*02/06/2017 Morbid obesity with BMI of 45.0-49.9, adult (HC*03/28/2017 Oxygen dependent [Z99.81] 05/06/2017 Acute bronchitis with chronic obstructive pulmo*11/06/2017 10/13/2019 Impaired fasting glucose [R73.01] 11/06/2017 Screening for colon cancer [Z12.11] 08/27/2018 10/13/2019 Actinic keratosis [L57.0] 05/19/2019 Routine physical examination [Z00.00] 05/19/2019 10/13/2019 Chronic respiratory failure with hypoxia (HCC) *10/13/2019 Lightheaded [R42] 01/30/2022 Vitamin D deficiency [E55.9] 01/30/2022 Dyslipidemia [E78.5] 01/30/2022 Intertrigo [L30.4] 05/01/2022 Chronic obstructive pulmonary disease (HCC) [J4*02/07/2023 Acute bronchitis with chronic obstructive pulmo*03/13/2024 Fatigue [R53.83] 03/13/2024 Thoracic aortic ectasia (HCC) [I77.810] 03/13/2024 Encounter Status:Closed by PATRICIA KEVIN on 11/05/24[facility] 10-21-2024 NotePatient Outreach (INTMMN) LISA LUCERO ([id number]) 1955 F Date Time Provider Department 10/21/24 PHUC MARTINES INTMMN During your visit today, we recorded the following information about you: Allergies As of Date: 10/21/2024 Noted Allergy Reaction ALEVE (NAPROXEN) 05/31/2020 4 - Hives Comments: Hives, edema of hands within 1 hour of use Date Reviewed: 10/19/2024 Reviewed by: Maricruz Camp APRN.CULTURE MANAGER - Fully Assessed Visit Diagnosis:Encounter for screening mammogram for breast cancer [Z12.31] Order(s):[facility] SCREENING W ASHLEY [[id number]] Order #: [id number] FUTURE Prescriptions as of 10/26/2024 - triamterene-hydroCHLOROthiazide (DYAZIDE) 37.5-25 mg per capsule Take 1 capsule by mouth once daily. - amLODIPine (NORVASC) 10 mg tablet Take 1 tablet by mouth once daily. - ebnaiojrzfr-xhpxkvsaf-ircyjsft (TRELEGY ELLIPTA) 100-62.5-25 mcg inhalation powder USE 1 INHALATION DAILY INSTRUCTED - triamcinolone acetonide (KENALOG) 0.5 % cream Apply 1 application to affected area two times a day as needed (foot rash, eczema). For rash/itching. Apply sparingly. Avoid face/skin fold. - ipratropium-albuterol (DUONEB) 0.5 mg-3 mg(2.5 mg base)/3 mL nebu Inhale 3 mL as instructed four times daily. Inhale via nebulizer over 5-15 minutes. - OXYGEN, HOME THERAPY, 3.5L at night and 6L with exertion - albuterol HFA (PROVENTIL HFA, VENTOLIN HFA) 90 mcg/actuation inhaler Inhale 2 Puffs as instructed every 6 hours as needed for wheezing/shortness of breath. - COMPOUNDED PRESCRIPTION Please dispense nebulizer and supply kit, including tubing, mouth piece, and hose. Assoc diagnosis: J44.9. Dispense: 1 each, Refills: 99. - ASCORBIC ACID/BIOFLAVONOIDS (SIVAN C ORAL) Take 1 capsule by mouth once daily. - COMPOUNDED PRESCRIPTION 3.5L of O2 at night and 6L with exertion. - multivitamin tablet Take 1 tablet by mouth once daily. Problem List As Of Date 10/21/2024 Noted Resolved BENIGN HYPERTENSION [I10] 07/07/2008 Tobacco use disorder [F17.200] 10/05/2011 UTERINE LEIOMYOMA NOS [D25.9] OBESITY [E66.9] 05/04/2006 10/13/2019 PLANTAR FASCIITIS [M72.2] 05/04/2006 08/19/2006 Essential hypertension [I10] 07/07/2008 PAIN FLANK [R10.9] 08/13/2008 10/13/2019 IRRITABLE COLON [K58.9] 08/13/2008 COPD (chronic obstructive pulmonary disease) (H*02/03/2010 10/13/2019 Hypoxemia [R09.02] 02/03/2010 Former smoker [Z87.891] Obstructive sleep apnea [G47.33] Well adult exam [Z00.00] 11/09/2016 10/13/2019 Stage 3 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*02/06/2017 Morbid obesity with BMI of 45.0-49.9, adult (HC*03/28/2017 Oxygen dependent [Z99.81] 05/06/2017 Acute bronchitis with chronic obstructive pulmo*11/06/2017 10/13/2019 Impaired fasting glucose [R73.01] 11/06/2017 Screening for colon cancer [Z12.11] 08/27/2018 10/13/2019 Actinic keratosis [L57.0] 05/19/2019 Routine physical examination [Z00.00] 05/19/2019 10/13/2019 Chronic respiratory failure with hypoxia (HCC) *10/13/2019 Lightheaded [R42] 01/30/2022 Vitamin D deficiency [E55.9] 01/30/2022 Dyslipidemia [E78.5] 01/30/2022 Intertrigo [L30.4] 05/01/2022 Chronic obstructive pulmonary disease (HCC) [J4*02/07/2023 Acute bronchitis with chronic obstructive pulmo*03/13/2024 Fatigue [R53.83] 03/13/2024 Thoracic aortic ectasia (HCC) [I77.810] 03/13/2024 Encounter Status:Closed by [employer] Bern[employer] FilmsTarun on 10/26/24[facility] 10-20-2024 NoteHNO ID: [id number] Author: MARICRUZ CAMP APRN.CNP Service: ? Author Type: Nurse Practitioner Type: Progress Notes Filed: 10/20/2024 09:25 Note Text: [facility] LUNG CANCER SCREENING FOLLOWUP ADVANCED: Diagnosis: Lung Nodule Recommendation: CT Scan Follow Up Due Date: 01/18/2025 All Follow Up Scheduled: No Pulmonary Follow Up Type: Lung Nodule Surveillance Patient should be added to the Lung Cancer Screening Followup Report: Yes Lung Cancer Screening Program Location: [facility] 10-20-2024 History of Present illness Narrative* Maricruz Camp APRN.CNP - 10/20/2024 9:25 AM EST [facility] LUNG CANCER SCREENING FOLLOWUP ADVANCED: Diagnosis: Lung Nodule Recommendation: CT Scan Follow Up Due Date: 01/18/2025 All Follow Up Scheduled: No Pulmonary Follow Up Type: Lung Nodule Surveillance Patient should be added to the Lung Cancer Screening Followup Report: Yes Lung Cancer Screening Program Location: [facility] Instructions* Patient Instructions* Maricruz Camp APRN.CNP - 10/19/2024 2:51 PM EST There are new inflammatory opacities. Recommend follow up CT lung in 3 months. Maricruz Camp APRN.CNP [facility]24 NoteHNO ID: [id number] Author: MARICRUZ CAMP APRN.CNP Service: ? Author Type: Nurse Practitioner Type: Progress Notes Filed: 10/19/2024 14:53 Note Text: LUNG SCREENING ANNUAL VISIT PRIMARY CARE PHYSICIAN: Phuc Martines DO PULMONARY PROVIDER: none Results will be communicated via letter or electronic record if applicable. Visit Delivery: In Person Patient Visit Type: established Current or Ex-smoker? Ex Exam Type: annual LDCT Number of Pack Years: 38 Current smoker (=0) or Number of Years since Quit: 15 The patient's smoking history is similar to prior year shared decision visit. The reason for the discrepancy is NA Chief Complaint: Established patient in lung cancer screening program here for annual follow-up. Impression / Recommendations Lisa Lucero presents for annual lung cancer screening annual exam and nodule evaluation. Plan: Indeterminate pulmonary nodules: Previously identified nodules appear stable. There are new inflammatory opacities in MAKAYLA and RLL. Low dose CT Scan to be repeated in 3 months. Plan subject to change pending final radiology report and recommendations. Nature of the lung nodule(s) and the options for further evaluation discussed in detail with patient. Lisa Lucero expressed understanding and is in agreement with plan. 2. Encounter for screening for malignant neoplasm of respiratory organs I have determined that the patient is eligible for continued low dose CT screening based on age, absence of signs or symptoms of lung cancer, smoking history and total pack years. The patient was counseled on the importance of adherence to annual LDCT lung cancer screening, impact of comorbidities and ability or willingness to undergo diagnosis and treatment. The patient understands and feels comfortable with it: Yes. 3. Nicotine Dependence The patient was counseled on the importance of maintaining cigarette smoking abstinence - The patient is committed to remaining abstinent from tobacco. I spent a total of 3 minutes on the date of the service which included preparing to see the patient, [id number] patient care, completing clinical documentation, performing a medically appropriate examination, counseling and educating the patient/family/caregiver, ordering medications, tests, or procedures, communicating with other HCPs (not separately reported), independently interpreting results (not separately reported), communicating results to the patient/family/caregiver, and care coordination (not separately reported). Maricruz Camp APRN.[facility] October 19, 2024 10:28 AM History of Present Illness: Lisa Lucero is a 69 year old female who is presenting today for annual lung cancer screening LDCT and nodule surveillance/management. Patient has multiple nodules found on previous lung cancer screening LDCT. Last LDCT was performed on 10/08/2023 and was LUNG RADS Category 2. Previous potentially significant incidental findings on imaging: None. Patient is a former smoker with a 38 pack year history. Patient quit smoking 15 years ago at age 54. Patient will continue to be eligible for lung cancer screening until age 69. The patient does not have any symptoms or signs of lung cancer. Patient has noticed some increased SOB with their daily activity over the last 3-4 months. She has home oxygen and portable oxygen @6 L with exertion, 3.5 L at rest. No wheezing or dyspnea. Patient denies feeling of chest tightness/congestion in the chest. Patient does not have a new or concerning cough, and denies hemoptysis. Patient does not have a chronic daily cough. Denies regular or recent fevers/chills. Patient does not have any significant unintentional weight loss. Patient denies having any respiratory infections or COVID-19 in the past few months. Last URI around 02/2024. Uses Trelegy daily. Nebulizers and albuterol if feeling sick. Modified Medical Research [place] Dyspnea Scale (MMRC) I am too breathless to leave the house or I am breathless when dressing 4 Last 12 Encounter Wt Readings: Date: Wt: 10/19/2024 117.8 kg (259 lb 9.6 oz) 06/26/2024 115.2 kg (254 lb) 04/26/2024 118 kg (260 lb 2.3 oz) 03/13/2024 117 kg (258 lb) 01/29/2024 118.4 kg (261 lb 0.4 oz) 09/17/2023 120.4 kg (265 lb 6.4 oz) 08/14/2023 120.2 kg (265 lb) 06/13/2023 120.7 kg (266 lb) 02/06/2023 119.3 kg (263 lb) 09/28/2022 116.3 kg (256 lb 6.4 oz) 08/01/2022 117.5 kg (259 lb) 06/22/2022 117.5 kg (259 lb) Social History Tobacco Use: Types: Cigarettes Past Medical History: PAST MEDICAL HISTORY Diagnosis Date Chronic hypoxemic respiratory failure (HCC) COPD (chronic obstructive pulmonary disease) (HCC) 02/03/2010 Coronary artery disease No NE, CHF. No heart cath. Diverticulosis of colon (without mention of hemorrhag (more content not included)...[facility]12-23-20[facility] History of Present illness Narrative* Maricruz Camp APRN.CULTURE MANAGER - 10/19/2024 10:27 AM EST Images from the original note were not included. LUNG SCREENING ANNUAL VISIT PRIMARY CARE PHYSICIAN: Phuc Martines DO PULMONARY PROVIDER: none Results will be communicated via letter or electronic record if applicable. Visit Delivery: In Person Patient Visit Type: established Current or Ex-smoker? Ex Exam Type: annual LDCT Number of Pack Years: 38 Current smoker (=0) or Number of Years since Quit: 15 The patient's smoking history is similar to prior year shared decision visit. The reason for the discrepancy is NA Chief Complaint: Established patient in lung cancer screening program here for annual follow-up. Impression / Recommendations Lisa K Jazmine presents for annual lung cancer screening annual exam and nodule evaluation. Plan: Indeterminate pulmonary nodules: Previously identified nodules appear stable. There are new inflammatory opacities in MAKAYLA and RLL. Low dose CT Scan to be repeated in 3 months. Plan subject to change pending final radiology report and recommendations. Nature of the lung nodule(s) and the options for further evaluation discussed in detail with patient. Lisa Luecro expressed understanding and is in agreement with plan. 2. Encounter for screening for malignant neoplasm of respiratory organs I have determined that the patient is eligible for continued low dose CT screening based on age, absence of signs or symptoms of lung cancer, smoking history and total pack years. The patient was counseled on the importance of adherence to annual LDCT lung cancer screening, impact of comorbidities and ability or willingness to undergo diagnosis and treatment. The patient understands and feels comfortable with it: Yes. 3. Nicotine Dependence The patient was counseled on the importance of maintaining cigarette smoking abstinence - The patient is committed to remaining abstinent from tobacco. I spent a total of 3 minutes on the date of the service which included preparing to see the patient, [id number] patient care, completing clinical documentation, performing a medically appropriate examination, counseling and educating the patient/family/caregiver, ordering medications, tests, or pr ocedures, communicating with other HCPs (not separately reported), independently interpreting results (not separately reported), communicating results to the patient/family/caregiver, and care coordination (not separately reported). Maricruz Camp APRN.[facility] October 19, 2024 10:28 AM History of Present Illness: Lisa Lucero is a 69 year old female who is presenting today for annual lung cancer screeningLDCT and nodule surveillance/management. Patient has multiple nodules found on previous lung cancerscreening LDCT. Last LDCT was performed on 10/08/2023 and was LUNG RADS Category 2. Previous potentially significant incidental findings on imaging: None. Patient is a former smoker with a 38 pack year history. Patient quit smoking 15 years ago at age 54. Patient will continue to be eligible for lung cancer screening until age 69. The patient does not have any symptoms or signs of lung cancer. Patient has noticed some increased SOB with their daily activity over the last 3-4 months. She has home oxygen and portable oxygen @6 Lwith exertion, 3.5 L at rest. No wheezing or dyspnea. Patient denies feeling of chest tightness/congestion in the chest. Patient does not have a new or concerning cough, and denies hemoptysis. Patient does not have a chronic daily cough. Denies regular or recent fevers/chills. Patient does not haveany significant unintentional weight loss. Patient denies having any respiratory infections or COVID-19 in the past few months. Last URI around 02/2024. Uses Trelegy daily. Nebulizers and albuterol if feeling sick. Modified Medical Research [place] Dyspnea Scale (MMRC) I am too breathless to leave the house or I am breathless when dressing 4 Last 12 Encounter Wt Readings: Date: Wt: 10/19/2024 117.8 kg (259 lb 9.6 oz) 06/26/2024 115.2 kg (254 lb) 04/26/2024 118 kg (260 lb 2.3 oz) 03/13/2024 117 kg (258 lb) 01/29/2024 118.4 kg (261 lb 0.4 oz) 09/17/2023 120.4 kg (265 lb 6.4 oz) 08/14/2023 120.2 kg (265 lb) 06/13/2023 120.7 kg (266 lb) 02/06/2023 119.3 kg (263 lb) 09/28/2022 116.3 kg (256 lb 6.4 oz) 08/01/2022 117.5 kg (259 lb) 06/22/2022 117.5 kg (259 lb) Social History Tobacco Use: Types: Cigarettes Past Medical History: PAST MEDICAL HISTORY Diagnosis Date Chronic hypoxemic respiratory failure (HCC) COPD (chronic obstructive pulmonary disease) (HCC) 02/03/2010 Coronary artery disease No NE, CHF. No heart cath. Diverticulosis of colon (without mention of hemorrhage) Essential hypertension, benign Fibrocystic breast Former smoker Internal hemorrhoids without mention of complication Leiomyoma of uterus, unspecified Obstructive sleep apnea Mild. Not prescribed CPAP, only 2L nasal O2. Family Hx: FAMILY HISTORY Problem Relation Age of Onset Cancer Father BLADDER COPD Mother other (Alcoholic) Mother associated with sepsis. Hypertension Maternal Grandmother Thyroid Maternal Grandmother Surgical Hx: PAST SURGICAL HISTORY Procedure Laterality Date BREAST LUMPECTOMY HX Right 1997 COLONOSCOPY FLX DX W/COLLJ SPEC WHEN PFRMD 08/27/08 repeat due 2017 COLONOSCOPY FLX DX W/COLLJ SPEC WHEN PFRMD 09/10/2018 Colonoscopy - due 2027 INGUINAL HERNIA REPAIR HX 1976 bilateral PAST SURGICAL HISTORY OF hemangioma left cheek REMOVAL OF IMPACTED TOOTH - COMPLETELY BONY WISDOM TEETH Allergies: ALLERGIES Allergen Reactions Aleve [Naproxen] Hives Hives, edema of hands within 1 hour of use Review Of Systems: See HPI for ROS All of the remainder systems were reviewed and negative. PHYSICAL EXAMINATION: BP 130/70 Pulse 101 Ht 5' 4 (1.63m) Wt 259 lb 9.6 oz (117.8kg) SpO2 90[3 L]% BMI 44.54 kg/(m^2). Recheck on pulse ox 93%. General appearance: well appearing, in no acute distress, and alert Skin: skin color, texture, turgor normal, no rashes or lesions Neck: Supple, no adenopathy; thyroid symmetric, normal size Respiratory: lungs clear to auscultation no wheezing or rhonchi Cardiovascular: Negative. RRR without murmur, gallop, or rubs. No ectopy Musculoskeletal: Extremities normal. No deformities, edema, or skin discoloration. Neuro: Oriented X 3 Data Review I have visually reviewed imaging and testing below CT imaging done today was reviewed and analyzed independently and compared to prior CT chest imaging by practitioner and awaiting radiology review. New inflammatory opacities. All other nodules are stable. Imaging * * *Final Report* * * DATE OF EXAM: Oct 08 2023 1:24PM [facility] 0562 - CT LUNG SCREEN WO IVCON / PROCEDURE REASON: Former cigarette smoker * * * * Physician Interpretation * * * * EXAMINATION: CHEST CT WITHOUT CONTRAST (LOW-DOSE CT LUNG CANCER SCREENING PROTOCOL) CLINICAL HISTORY: Lung cancer LDCT screening ? absence of signs or symptoms of lung cancer. Personal history of nicotine dependence. Subsequent (annual) Technique: Spiral CT acquisition of the chest from the thoracic inlet to the upper abdomen without contrast. MQ: CTLCS_6 Patient characteristics: * Vwzp-cd-Gebfe: 1955; Age at exam: 68 years * Gender: Female * Lung Disease: Asymptomatic (no signs or symptoms of lung disease) * Number of Pack Years: 38 * Current smoker (=0) or Number of Years since Quit: 14 * Ordering provider and NPI: MARICRUZ CAMP [id number] * Interpreting radiologist and NPI: Nicole [id number] Exam acquisition parameters: * Exam Date: 10/08/2023 1:24 PM * Site: [facility] * * CT System Ms Sql Server Developer: CiRBA * CT System Model: Sensation * Tube Current-Time (mA-sec): 45 * Peak Voltage (kV): 120V * Scan Time (sec): 11.74 * Scan Volume (z-length, cm): -31.40 * Pitch: 0.75 * Slice Thickness (mm): 1.5 * CT Dose-Length Product: 139 mGy*cm * CT Dose Index: 3.47mGy * CT Dose Reduction Method: Automated exposure control(AEC) and iterative recon COMPARISON: Prior chest CT dated August 29, 2022 RESULT: Are nodules present? Yes, 1-5 nodules Lung nodule comments: 11 mm right apical nodule (31) unchanged. 6 mm subpleural right lower lobe nodule (176) unchanged. 4 mm right lower lobe nodule (213) unchanged. Few other scattered tiny nodules unchanged. No new nodules. Other findings: Mild coronary calcifications. Mild degenerative changes of the thoracic spine. Bronchial thickening, severe upper lobe predominant emphysema, mosaic attenuation from chronic small airway inflammation, and scattered linear opacities likely atelectasis. Last CT Chest - Impression Only CT CHEST [facility] Exam End: 08/29/2022 10:32 AM (Final result) Impression: IMPRESSION: Persistence of a RIGHT middle lobe. Follow-up recommendations as below. Other small lower lung nodules have resolved. Stable apical density consistent with fibrosis. Developing splenic density possibly a cyst. Suggest correlation with ultrasound. Ectasia ascending aorta.... Last XR Chest - Impression Only XR CHEST 2V FRONTAL/LAT Exam End: 09/28/2022 1:22 PM (Final result) Impression: IMPRESSION: Overall findings unchanged. ... Pulmonary Function Testing: SPIROMETRY BASELINE ONLY ([id number]) - ordered on 03/16/22 No textual results for order. [facility] History of Present illness Narrative* Jes Galaviz RT(R) - 10/19/2024 10:00 AM EST Radiology Service Progress Note PATIENT NAME: Lisa Lucero DATE OF SERVICE: October 19, 2024 TIME: 12:24 PM PATIENT IDENTITY VERIFICATION COMPLETED USING TWO (2) IDENTIFIERS: Name and Date of confirmedby patient verbally. FALL SCREENING: Has the patient had 2 falls in the last year or 1 fall with injury or currently using an Ambulatory Assistive Device (Walker, Cane, Wheelchair, Crutches, etc.)? No PATIENT GENDER DATA: Female. status: : No status: NO. PATIENT RELEVANT IMPLANT DATA REVIEWED: Yes PATIENT PRESENTS WITH AN IMPLANTABLE OR ATTACHED MULTILITH OPERATOR: No RADIOLOGY DEPARTMENT: CT; Exam(s) Completed: Lung Screening PERIPHERAL IV DATA: Not applicable SIGNED BY: RT Flower(R) October 19, 2024 12:24 PM documented in this encounterSelect [facility]12-23-2024 NoteHNO ID: [id number] Author: JES GALAVIZ RT(R) Service: ? Author Type: [employer] Type: Progress Notes Filed: 10/19/2024 12:24 Note Text: Radiology Service Progress Note PATIENT NAME: Lisa Lucero DATE OF SERVICE: October 19, 2024 TIME: 12:24 PM PATIENT IDENTITY VERIFICATION COMPLETED USING TWO (2) IDENTIFIERS: Name and Date of confirmed by patient verbally. FALL SCREENING: Has the patient had 2 falls in the last year or 1 fall with injury or currently using an Ambulatory Assistive Device (Walker, Cane, Wheelchair, Crutches, etc.)? No PATIENT GENDER DATA: Female. status: : No status: NO. PATIENT RELEVANT IMPLANT DATA REVIEWED: Yes PATIENT PRESENTS WITH AN IMPLANTABLE OR ATTACHED MULTILITH OPERATOR: No RADIOLOGY DEPARTMENT: CT; Exam(s) Completed: Lung Screening PERIPHERAL IV DATA: Not applicable SIGNED BY: RT Flower(R) October 19, 2024 12:24 [facility]09-20-2024 Telephone encounter Note* Telephone Encounter - Vero Lockett LPN - 07/17/2024 2:19 PM EDT Prescription Refill Information The patient has been identified by name and date of : Yes Caregiver verified no other encounters exist for this prescription request: Yes Caregiver confirmed with patient/requestor that no other refills are due, in the near future, with this provider at this time: Yes The last office visit in the department: 03/13/2024 Does the patient have a future office visit with this provider/department: Yes Requested Prescriptions Pending Prescriptions Disp Refills triamterene-hydroCHLOROthiazide (DYAZIDE) 37.5-25 mg per capsule 90 capsule 3 Sig: Take 1 capsule by mouth once daily. Vero Lockett LPN July 17, 2024 2:19 PM [facility]09-20-2024 Miscellaneous Notes* Telephone Encounter - Vero Lockett LPN - 07/17/2024 2:19 PM EDT Prescription Refill Information The patient has been identified by name and date of : Yes Caregiver verified no other encounters exist for this prescription request: Yes Caregiver confirmed with patient/requestor that no other refills are due, in the near future, with this provider at this time: Yes The last office visit in the department: 03/13/2024 Does the patient have a future office visit with this provider/department: Yes Requested Prescriptions Pending Prescriptions Disp Refills triamterene-hydroCHLOROthiazide (DYAZIDE) 37.5-25 mg per capsule 90 capsule 3 Sig: Take 1 capsule by mouth once daily. Vero Lockett LPN July 17, 2024 2:19 PM documented in this encounterSelect [facility]-30-[facility] History of Present illness Narrative* Diana Gonzalez MD - 06/26/2024 11:45 AM EDT Images from the original note were not included. . [facility] [place] Note Patient name: Lisa Lucero PCP: Phuc Martines DO CC: Follow-up COPD HPI: Lisa Lucero 68 year old female former 38-abyu-sibg smoker, quitting in 2008 with PMH significant for morbid obesity, severe COPD, chronic hypoxemic respiratory failure, CAD, HTN, ROXY presenting for routine follow-up. Current therapy consists of Trelegy Ellipta with as needed albuterol. She requires 5 to 6 L of oxygen. Patient prefers POC but inadequate oxygenation with pulse mode. Shefinally agreed to using tanks with continuous flow and has noted improvement in her shortness of breath. She participates in lung cancer screening, due for her last CT screening in September. From a pulmonary standpoint she states she has been doing fairly well. She denies chronic cough, mucus production, wheezing. Main symptom is BRAGG. She has not recently been ill with any upper respiratory infection nor required hospitalization. DME: Bruce DATA: COPD Assessment Test I never cough 0 1 2 3 4 5 I cough all the time; Score 1 I have no phlegm 0 1 2 3 4 5 My chest is completely full of phlegm; Score 2 My chest does not feel tight at all 0 1 2 3 4 5 My chest chest feels very tight; Score 1 When I walk up a hill or one flight of stairs I am not breathless 0 1 2 3 4 5 When I walk up a hillor one flight or stairs I am very breathless; Score 5 I am not limited doing any activities at home 0 1 2 3 4 5 I am very limited doing activities at home; Score 4 I am confident leaving my home despite my lung condition 0 1 2 3 4 5 I am not at all confident leaving my home because of my lung condition; Score 3 I sleep soundly 0 1 2 3 4 5 don't sleep soundly because of my lungs; Score 3 I have lots of energy 0 1 2 3 4 5 I have no energy at all; Score 4 Total Score: 23 Imaging / Diagnostic Studies: DATE OF EXAM: Oct 08 2023 1:24PM [facility] 0562 - CT LUNG SCREEN WO IVCON / PROCEDURE REASON: Former cigarette smoker COMPARISON: Prior chest CT dated August 29, 2022 RESULT: Are nodules present? Yes, 1-5 nodules Lung nodule comments: 11 mm right apical nodule (31) unchanged. 6 mmsubpleural right lower lobe nodule (176) unchanged. 4 mm right lowerlobe nodule (213) unchanged. Few other scattered tiny nodules unchanged. No new nodules. Other findings: Mild coronary calcifications. Mild degenerative changes of the thoracic spine. Bronchial thickening, severe upper lobe predominant emphysema, mosaic attenuation from chronic small airway inflammation, and scattered linear opacities likely atelectasis. I personally viewed the images which shows stable spiculated right upper lobe nodule and emphysema PAST MEDICAL HISTORY No date: Chronic hypoxemic respiratory failure (HCC) 02/03/2010: COPD (chronic obstructive pulmonary disease) ([facility]) No date: Coronary artery disease Comment: No NE, CHF. No heart cath. No date: Diverticulosis of colon (without mention of hemorrhage) No date: Essential hypertension, benign No date: Fibrocystic breast No date: Former smoker No date: Internal hemorrhoids without mention of complication No date: Leiomyoma of uterus, unspecified No date: Obstructive sleep apnea Comment: Mild. Not prescribed CPAP, only 2L nasal O2. ALLERGIES Allergen Reactions Aleve [Naproxen] Hives Hives, edema of hands within 1 hour of use amLODIPine (NORVASC) 10 mg tablet Take 1 tablet by mouth once daily. wzljnsqiink-jvalsrquz-onbldvrn (TRELEGY ELLIPTA) 100-62.5-25 mcg inhalation powder USE 1 INHALATIONDAILY INSTRUCTED triamcinolone acetonide (KENALOG) 0.5 % cream Apply 1 application to affected area two times a day as needed (foot rash, eczema). For rash/itching. Apply sparingly. Avoid face/skin fold. triamterene-hydroCHLOROthiazide (DYAZIDE) 37.5-25 mg per capsule Take 1 capsule by mouth once daily. ipratropium-albuterol (DUONEB) 0.5 mg-3 mg(2.5 mg base)/3 mL nebu Inhale 3 mL as instructed four times daily. Inhale via nebulizer over 5-15 minutes. OXYGEN, HOME THERAPY, 3.5L at night and 6L with exertion albuterol HFA (PROVENTIL HFA, VENTOLIN HFA) 90 mcg/actuation inhaler Inhale 2 Puffs as instructed every 6 hours as needed for wheezing/shortness of breath. COMPOUNDED PRESCRIPTION Please dispense nebulizer and supply kit, including tubing, mouth piece, and hose. Assoc diagnosis: J44.9. Dispense: 1 each, Refills: 99. ASCORBIC ACID/BIOFLAVONOIDS (SIVAN C ORAL) Take 1 capsule by mouth once daily. COMPOUNDED PRESCRIPTION 3.5L of O2 at night and 6L with exertion. multivitamin tablet Take 1 tablet by mouth once daily. PMH, Social history, family history and surgical history reviewed and updated in EMR REVIEW OF SYSTEMS: CONSTITUTIONAL: No fevers, chills, nightsweats, unintended weight loss HEENT: Dry nose without epistaxis CARDIOVASCULAR: No chest pain, palpitations. BRAGG, edema PULM: See HPI GI: No dysphagia/odynophagia, problematic reflux NEURO: No new balance problems, peripheral weakness/paresthesias or numbness of concern. INTEGUMENTARY: No new skin changes PHYSICAL EXAMINATION: BP 136/78 Pulse 80 Resp 15 Wt 254 lb (115.2kg) SpO2 91% on 5 L General Appearance: Obese female, NAD. Skin: Skin color, texture, turgor normal, no suspicious rashes or lesions. Head: Normocephalic, no masses, lesions, tenderness or abnormalities. Oropharynx: No oral lesions, no thrush. Neck: No JVD, no masses, no adenopathy. Lungs: Not labored, normal to percussion, diminished breath sounds, no wheezes or crackles. Heart: Regular rate and rhythm, no murmur. Extremities: No edema or clubbing. Assessment/Plan: 1. Severe COPD GOLD stage 3 -Symptoms controlled with current inhaled therapy -Continue Trelegy Ellipta with as needed albuterol 2. Chronic hypoxemic respiratory failure -Patient is compliant with and benefits from supplemental oxygen -Symptomatology improved with continuous flow versus pulse mode ambulation 3. Former cigarette smoker -Former 24-pvmk-fkgc smoker with sequelae of emphysema -Continued abstinence -Participating in lung cancer screening program with CT due this September 4. Morbid obesity -BMI 43 -Weight loss advised 5. Lung nodule -Right upper lobe nodule stable since 2017 -No further surveillance imaging required Diana Gonzalez MD [facility] [place] documented in this encounterSelect [facility]-30-[facility]24 NoteHNO ID: [id number] Author: DIANA GONZALEZ MD Service: ? Author Type: Physician Type: Progress Notes Filed: 06/26/2024 14:11 Note Text: . [facility] [place] Note Patient name: Lisa Lucero PCP: Phuc Martines DO CC: Follow-up COPD HPI: Lisa Lucero 68 year old female former 30-cfvb-gedk smoker, quitting in 2008 with PMH significant for morbid obesity, severe COPD, chronic hypoxemic respiratory failure, CAD, HTN, ROXY presenting for routine follow-up. Current therapy consists of Trelegy Ellipta with as needed albuterol. She requires 5 to 6 L of oxygen. Patient prefers POC but inadequate oxygenation with pulse mode. She finally agreed to using tanks with continuous flow and has noted improvement in her shortness of breath. She participates in lung cancer screening, due for her last CT screening in September. From a pulmonary standpoint she states she has been doing fairly well. She denies chronic cough, mucus production, wheezing. Main symptom is BRAGG. She has not recently been ill with any upper respiratory infection nor required hospitalization. DME: Bruce DATA: COPD Assessment Test I never cough 0 1 2 3 4 5 I cough all the time; Score 1 I have no phlegm 0 1 2 3 4 5 My chest is completely full of phlegm; Score 2 My chest does not feel tight at all 0 1 2 3 4 5 My chest chest feels very tight; Score 1 When I walk up a hill or one flight of stairs I am not breathless 0 1 2 3 4 5 When I walk up a hill or one flight or stairs I am very breathless; Score 5 I am not limited doing any activities at home 0 1 2 3 4 5 I am very limited doing activities at home; Score 4 I am confident leaving my home despite my lung condition 0 1 2 3 4 5 I am not at all confident leaving my home because of my lung condition; Score 3 I sleep soundly 0 1 2 3 4 5 don't sleep soundly because of my lungs; Score 3 I have lots of energy 0 1 2 3 4 5 I have no energy at all; Score 4 Total Score: 23 Imaging / Diagnostic Studies: DATE OF EXAM: Oct 08 2023 1:24PM [facility] 0562 - CT LUNG SCREEN WO IVCON / PROCEDURE REASON: Former cigarette smoker COMPARISON: Prior chest CT dated August 29, 2022 RESULT: Are nodules present? Yes, 1-5 nodules Lung nodule comments: 11 mm right apical nodule (31) unchanged. 6 mmsubpleural right lower lobe nodule (176) unchanged. 4 mm right lowerlobe nodule (213) unchanged. Few other scattered tiny nodules unchanged. No new nodules. Other findings: Mild coronary calcifications. Mild degenerative changes of the thoracic spine. Bronchial thickening, severe upper lobe predominant emphysema, mosaic attenuation from chronic small airway inflammation, and scattered linear opacities likely atelectasis. I personally viewed the images which shows stable spiculated right upper lobe nodule and emphysema PAST MEDICAL HISTORY No date: Chronic hypoxemic respiratory failure (HCC) 02/03/2010: COPD (chronic obstructive pulmonary disease) (HCC) No date: Coronary artery disease Comment: No NE, CHF. No heart cath. No date: Diverticulosis of colon (without mention of hemorrhage) No date: Essential hypertension, benign No date: Fibrocystic breast No date: Former smoker No date: Internal hemorrhoids without mention of complication No date: Leiomyoma of uterus, unspecified No date: Obstructive sleep apnea Comment: Mild. Not prescribed CPAP, only 2L nasal O2. ALLERGIES Allergen Reactions Aleve [Naproxen] Hives Hives, edema of hands within 1 hour of use amLODIPine (NORVASC) 10 mg tablet Take 1 tablet by mouth once daily. ifuwvynqwnc-ffwcdoygb-zufjhpbl (TRELEGY ELLIPTA) 100-62.5-25 mcg inhalation powder USE 1 INHALATION DAILY INSTRUCTED triamcinolone acetonide (KENALOG) 0.5 % cream Apply 1 application to affected area two times a day as needed (foot rash, eczema). For rash/itching. Apply sparingly. Avoid face/skin fold. triamterene-hydroCHLOROthiazide (DYAZIDE) 37.5-25 mg per capsule Take 1 capsule by mouth once daily. ipratropium-albuterol (DUONEB) 0.5 mg-3 mg(2.5 mg base)/3 mL nebu Inhale 3 mL as instructed four times daily. Inhale via nebulizer over 5-15 minutes. OXYGEN, HOME THERAPY, 3.5L at night and 6L with exertion albuterol HFA (PROVENTIL HFA, VENTOLIN HFA) 90 mcg/actuation inhaler Inhale 2 Puffs as instructed every 6 hours as needed for wheezing/shortness of breath. COMPOUNDED PRESCRIPTION Please dispense nebulizer and supply kit, including tubing, mouth piece, and hose. Assoc diagnosis: J44.9. Dispense: 1 each, Refills: 99. ASCORBIC ACID/BIOFLAVONOIDS (SIVAN C ORAL) Take 1 capsule by mouth once daily. COMPOUNDED PRESCRIPTION 3.5L of O2 at night and 6L with exertion. multivitamin tablet Take 1 tablet by mouth once daily. PMH, Social history, family history and surgical history reviewed and updated in EMR REVIEW OF SYSTEMS: CONSTITUTIONAL: No fevers, chills, nightsweats, unintended weight los (more content not included)...[facility]06-30-2024 NoteHNO ID: [id number] Author: DAMON EUGENE APRN.[facility] Service: ? Author Type: Nurse Practitioner Type: Progress Notes Filed: 04/26/2024 11:15 Note Text: Subjective Patient came in with complaints of possible wound infection on the right calf. Patient says she fell 2 weeks ago. Patient says she has been treating at home with antibiotic ointment. Patient denies any fever chills nausea vomiting. The history is provided by the patient. No english language learner tutor was used. Review of Systems Constitutional: Negative. Skin: Negative. Objective Physical Exam Constitutional: Appearance: Normal appearance. Pulmonary: Effort: Pulmonary effort is normal. Musculoskeletal: Legs: Comments: Scabbed area were marked above. Mild erythema around area and swelling. Area is draining some serosanguineous fluid. Neurological: Mental Status: She is alert. PAST MEDICAL HISTORY Diagnosis Date Chronic hypoxemic respiratory failure (HCC) COPD (chronic obstructive pulmonary disease) (HCC) 02/03/2010 Coronary artery disease No NE, CHF. No heart cath. Diverticulosis of colon (without mention of hemorrhage) Essential hypertension, benign Fibrocystic breast Former smoker Internal hemorrhoids without mention of complication Leiomyoma of uterus, unspecified Obstructive sleep apnea Mild. Not prescribed CPAP, only 2L nasal O2. PAST SURGICAL HISTORY Procedure Laterality Date BREAST LUMPECTOMY HX Right 1997 COLONOSCOPY FLX DX W/COLLJ SPEC WHEN PFRMD 08/27/08 repeat due 2017 COLONOSCOPY FLX DX W/COLLJ SPEC WHEN PFRMD 09/10/2018 Colonoscopy - due 2027 INGUINAL HERNIA REPAIR HX 1975 bilateral PAST SURGICAL HISTORY OF hemangioma left cheek REMOVAL OF IMPACTED TOOTH - COMPLETELY BONY WISDOM TEETH ALLERGIES Aleve [Naproxen] MEDICATIONS amLODIPine (NORVASC) 10 mg tablet Take 1 tablet by mouth once daily. acuqjpbxnmj-loadtawnk-zhngnpfo (TRELEGY ELLIPTA) 100-62.5-25 mcg inhalation powder USE 1 INHALATION DAILY INSTRUCTED triamcinolone acetonide (KENALOG) 0.5 % cream Apply 1 application to affected area two times a day as needed (foot rash, eczema). For rash/itching. Apply sparingly. Avoid face/skin fold. triamterene-hydroCHLOROthiazide (DYAZIDE) 37.5-25 mg per capsule Take 1 capsule by mouth once daily. ipratropium-albuterol (DUONEB) 0.5 mg-3 mg(2.5 mg base)/3 mL nebu Inhale 3 mL as instructed four times daily. Inhale via nebulizer over 5-15 minutes. OXYGEN, HOME THERAPY, 3.5L at night and 6L with exertion albuterol HFA (PROVENTIL HFA, VENTOLIN HFA) 90 mcg/actuation inhaler Inhale 2 Puffs as instructed every 6 hours as needed for wheezing/shortness of breath. COMPOUNDED PRESCRIPTION Please dispense nebulizer and supply kit, including tubing, mouth piece, and hose. Assoc diagnosis: J44.9. Dispense: 1 each, Refills: 99. ASCORBIC ACID/BIOFLAVONOIDS (SIVAN C ORAL) Take 1 capsule by mouth once daily. COMPOUNDED PRESCRIPTION 3.5L of O2 at night and 6L with exertion. multivitamin tablet Take 1 tablet by mouth once daily. doxycycline monohydrate 100 mg tablet Take 1 tablet by mouth two times a day for 7 days. benzonatate (TESSALON PERLES) 100 mg capsule Take 1 capsule by mouth three times daily as needed for cough. FAMILY HISTORY Problem Relation Age of Onset Cancer Father BLADDER COPD Mother other (Alcoholic) Mother associated with sepsis. Hypertension Maternal Grandmother Thyroid Maternal Grandmother Social History Tobacco Use Smoking status: Former Packs/day: 1.00 Years: 38.00 Additional pack years: 0.00 Total pack years: 38.00 Types: Cigarettes Start date: 1971 Quit date: 12/20/2008 Years since quittin.3 Smokeless tobacco: Never Tobacco comments: Parents smoked in childhood home. Spouse smokes, not in home. Vaping Use Vaping Use: Never used Substance Use Topics Alcohol use: Yes Alcohol/week: 6.0 - 12.0 standard drinks of alcohol Types: 6 - 12 Cans of Beer (12oz) per week Drug use: No ASSESSMENT/PLAN: 1. Skin infection - ICD9: 686.9, ICD10: L08.9 - ABSCESS AND WOUND CULTURE WITH GRAM STAIN - DOXYCYCLINE MONOHYDRATE 100 MG TABLET Was treated due to the erythema and swelling around scabs. Wound culture was sent out. If culture comes back and requires antibiotics to be changed please call and change accordingly. Patient was educated about red flag symptoms to watch for and when to go to the ER. Patient was okay with this care plan. Damon Eugene APRN.[facility]06-30-2024 History of Present illness Narrative* Damon Eugene APRN.[facility] - 04/26/2024 11:12 AM EDT Images from the original note were not included. Subjective Patient came in with complaints of possible wound infection on the right calf. Patient says she fell 2 weeks ago. Patient says she has been treating at home with antibiotic ointment. Patient denies any fever chills nausea vomiting. The history is provided by the patient. No english language learner tutor was used. Review of Systems Constitutional: Negative. Skin: Negative. Objective Physical Exam Constitutional: Appearance: Normal appearance. Pulmonary: Effort: Pulmonary effort is normal. Musculoskeletal: Legs: Comments: Scabbed area were marked above. Mild erythema around area and swelling. Area is draining some serosanguineous fluid. Neurological: Mental Status: She is alert. PAST MEDICAL HISTORY Diagnosis Date Chronic hypoxemic respiratory failure (HCC) COPD (chronic obstructive pulmonary disease) (HCC) 02/03/2010 Coronary artery disease No NE, CHF. No heart cath. Diverticulosis of colon (without mention of hemorrhage) Essential hypertension, benign Fibrocystic breast Former smoker Internal hemorrhoids without mention of complication Leiomyoma of uterus, unspecified Obstructive sleep apnea Mild. Not prescribed CPAP, only 2L nasal O2. PAST SURGICAL HISTORY Procedure Laterality Date BREAST LUMPECTOMY HX Right 1997 COLONOSCOPY FLX DX W/COLLJ SPEC WHEN PFRMD 08/27/08 repeat due 2017 COLONOSCOPY FLX DX W/COLLJ SPEC WHEN PFRMD 09/10/2018 Colonoscopy - due 2027 INGUINAL HERNIA REPAIR HX 1976 bilateral PAST SURGICAL HISTORY OF hemangioma left cheek REMOVAL OF IMPACTED TOOTH - COMPLETELY BONY WISDOM TEETH ALLERGIES Aleve [Naproxen] MEDICATIONS amLODIPine (NORVASC) 10 mg tablet Take 1 tablet by mouth once daily. nyjlyewnfaa-mevnetzso-jkpvlnjg (TRELEGY ELLIPTA) 100-62.5-25 mcg inhalation powder USE 1 INHALATIONDAILY INSTRUCTED triamcinolone acetonide (KENALOG) 0.5 % cream Apply 1 application to affected area two times a day as needed (foot rash, eczema). For rash/itching. Apply sparingly. Avoid face/skin fold. triamterene-hydroCHLOROthiazide (DYAZIDE) 37.5-25 mg per capsule Take 1 capsule by mouth once daily. ipratropium-albuterol (DUONEB) 0.5 mg-3 mg(2.5 mg base)/3 mL nebu Inhale 3 mL as instructed four times daily. Inhale via nebulizer over 5-15 minutes. OXYGEN, HOME THERAPY, 3.5L at night and 6L with exertion albuterol HFA (PROVENTIL HFA, VENTOLIN HFA) 90 mcg/actuation inhaler Inhale 2 Puffs as instructed every 6 hours as needed for wheezing/shortness of breath. COMPOUNDED PRESCRIPTION Please dispense nebulizer and supply kit, including tubing, mouth piece, and hose. Assoc diagnosis: J44.9. Dispense: 1 each, Refills: 99. ASCORBIC ACID/BIOFLAVONOIDS (SIVAN C ORAL) Take 1 capsule by mouth once daily. COMPOUNDED PRESCRIPTION 3.5L of O2 at night and 6L with exertion. multivitamin tablet Take 1 tablet by mouth once daily. doxycycline monohydrate 100 mg tablet Take 1 tablet by mouth two times a day for 7 days. benzonatate (TESSALON PERLES) 100 mg capsule Take 1 capsule by mouth three times daily as needed for cough. FAMILY HISTORY Problem Relation Age of Onset Cancer Father BLADDER COPD Mother other (Alcoholic) Mother associated with sepsis. Hypertension Maternal Grandmother Thyroid Maternal Grandmother Social History Tobacco Use Smoking status: Former Packs/day: 1.00 Years: 38.00 Additional pack years: 0.00 Total pack years: 38.00 Types: Cigarettes Start date: 1971 Quit date: 12/20/2008 Years since quittin.3 Smokeless tobacco: Never Tobacco comments: Parents smoked in childhood home. Spouse smokes, not in home. Vaping Use Vaping Use: Never used Substance Use Topics Alcohol use: Yes Alcohol/week: 6.0 - 12.0 standard drinks of alcohol Types: 6 - 12 Cans of Beer (12oz) per week Drug use: No ASSESSMENT/PLAN: 1. Skin infection - ICD9: 686.9, ICD10: L08.9 - ABSCESS AND WOUND CULTURE WITH GRAM STAIN - DOXYCYCLINE MONOHYDRATE 100 MG TABLET Was treated due to the erythema and swelling around scabs. Wound culture was sent out. If culture comes back and requires antibiotics to be changed please call and change accordingly. Patient was educated about red flag symptoms to watch for and when to go to the ER. Patient was okay with this careplan. Damon Eugene APRN.ELVIA documented in this encounter[facility] Telephone encounter Note * Telephone Encounter - Erica Mckenzie LPN - 04/01/2024 9:51 AM EDT Pt. informed. [facility] Miscellaneous Notes* Telephone Encounter - Erica Foote LPN - 04/01/2024 9:51 AM EDT Pt. informed. * Telephone Encounter - Phuc Martines DO - 04/01/2024 8:58 AM EDT Okay to wait on chest xray if symptoms continue to improve. If start to worsen again, then need forCXR rx for Diflucan sent in for her for vagina and thrush symptoms Phuc Martines DO * Telephone Encounter - Aileen Mcdonnell RN - 03/30/2024 2:48 PM EDT Patient calling to let provider know she is still having some mild SOB which has not gotten worse but has not improved with antibiotics and prednisone. She says she is still coughing but mucous is now clear and has nasal drainage which is also clear. She is asking if she should still come in for CXR? Also, she is having vaginal yeast infection symptoms of itching, burning and clear thick mucous. She says she has slight burning on her tongue with a thin whitish coating. She has had thrush in the past. She is asking for recommendation. If script sent, [facility] Aileen Mcdonnell RN documented in this encounterSelect [facility] Telephone encounter Note * Telephone Encounter - Phuc Martines DO - 04/01/2024 8:58 AM EDT Okay to wait on chest xray if symptoms continue to improve. If start to worsen again, then need forCXR rx for Diflucan sent in for her for vagina and thrush symptoms Phuc Martines DO [facility]-03-[facility] Telephone encounter Note* Telephone Encounter - Aileen Mcdonnell RN - 03/30/2024 2:48 PM EDT Patient calling to let provider know she is still having some mild SOB which has not gotten worse but has not improved with antibiotics and prednisone. She says she is still coughing but mucous is now clear and has nasal drainage which is also clear. She is asking if she should still come in for CXR? Also, she is having vaginal yeast infection symptoms of itching, burning and clear thick mucous. She says she has slight burning on her tongue with a thin whitish coating. She has had thrush in the past. She is asking for recommendation. If script sent, [facility]. Aileen Mcdonnell RN [facility] History of Present illness Narrative* Phuc Martines, DO - 03/13/2024 1:19 PM EDT CC: Lisa Lucero is a 68 year old female who presents to the office for follow up HPI: Cough concerns, has severe COPD with hypoxia, recently her symptoms started as URI symptoms about 10 days ago and then started in left ear with pressure and left posterior neck pain. Now with cough non productive. Only occasionally able to get sputum out- milky green sputum. No fevers or chills. Using her oxygen, inhalers and saline spray in nose and duoneb treatment as well as incentive spirometer. IFG, diet controlled, admits she was eating more potatoes/starches. Needs to cut back on this. HPL, has cut back on animal fats in her diet. Eating less processed foods. HTN, well controlled typically at home. Taking amlodipine without SE or concerns PAST MEDICAL HISTORY Diagnosis Date Chronic hypoxemic respiratory failure (HCC) COPD (chronic obstructive pulmonary disease) (HCC) 02/03/2010 Coronary artery disease No NE, CHF. No heart cath. Diverticulosis of colon (without mention of hemorrhage) Essential hypertension, benign Fibrocystic breast Former smoker Internal hemorrhoids without mention of complication Leiomyoma of uterus, unspecified Obstructive sleep apnea Mild. Not prescribed CPAP, only 2L nasal O2. PAST SURGICAL HISTORY Procedure Laterality Date BREAST LUMPECTOMY HX Right 1997 COLONOSCOPY FLX DX W/COLLJ SPEC WHEN PFRMD 08/27/08 repeat due 2017 COLONOSCOPY FLX DX W/COLLJ SPEC WHEN PFRMD 09/10/2018 Colonoscopy - due 2027 INGUINAL HERNIA REPAIR HX 1976 bilateral PAST SURGICAL HISTORY OF hemangioma left cheek REMOVAL OF IMPACTED TOOTH - COMPLETELY BONY WISDOM TEETH Current Outpatient Medications Medication Sig doxycycline (VIBRA-TABS) 100 mg tablet Take 1 tablet by mouth two times a day for 10 days. amoxicillin-clavulanate potassium (AUGMENTIN) 875-125 mg per tablet Take 1 tablet by mouth two times a day for 10 days. predniSONE (DELTASONE) 10 mg tablet Take 4 tabs daily for 3 days, then 2 tabs daily for 3 days, then 1 tab daily for 3 days with food. amLODIPine (NORVASC) 10 mg tablet Take 1 tablet by mouth once daily. qzcfqdeujgo-ipqtgcarm-rotuqdav (TRELEGY ELLIPTA) 100-62.5-25 mcg inhalation powder USE 1 INHALATIONDAILY INSTRUCTED triamcinolone acetonide (KENALOG) 0.5 % cream Apply 1 application to affected area two times a day as needed (foot rash, eczema). For rash/itching. Apply sparingly. Avoid face/skin fold. triamterene-hydroCHLOROthiazide (DYAZIDE) 37.5-25 mg per capsule Take 1 capsule by mouth once daily. ipratropium-albuterol (DUONEB) 0.5 mg-3 mg(2.5 mg base)/3 mL nebu Inhale 3 mL as instructed four times daily. Inhale via nebulizer over 5-15 minutes. OXYGEN, HOME THERAPY, 3.5L at night and 6L with exertion benzonatate (TESSALON PERLES) 100 mg capsule Take 1 capsule by mouth three times daily as needed for cough. albuterol HFA (PROVENTIL HFA, VENTOLIN HFA) 90 mcg/actuation inhaler Inhale 2 Puffs as instructed every 6 hours as needed for wheezing/shortness of breath. COMPOUNDED PRESCRIPTION Please dispense nebulizer and supply kit, including tubing, mouth piece, and hose. Assoc diagnosis: J44.9. Dispense: 1 each, Refills: 99. ASCORBIC ACID/BIOFLAVONOIDS (SIVAN C ORAL) Take 1 capsule by mouth once daily. COMPOUNDED PRESCRIPTION 3.5L of O2 at night and 6L with exertion. multivitamin tablet Take 1 tablet by mouth once daily. No current facility-administered medications for this visit. ALLERGIES Allergen Reactions Aleve [Naproxen] Hives Hives, edema of hands within 1 hour of use Social History Tobacco Use Smoking status: Former Packs/day: 1.00 Years: 38.00 Additional pack years: 0.00 Total pack years: 38.00 Types: Cigarettes Start date: 1971 Quit date: 12/20/2008 Years since quittin.2 Smokeless tobacco: Never Tobacco comments: Parents smoked in childhood home. Spouse smokes, not in home. Vaping Use Vaping Use: Never used Substance Use Topics Alcohol use: Yes Alcohol/week: 6.0 - 12.0 standard drinks of alcohol Types: 6 - 12 Cans of Beer (12oz) per week Drug use: No ROS: See HPI PE: BP 158/70 Pulse 102 Temp (Src) 97.6 (Right Tympanic) Resp 28 Wt 258 lb (117.0kg) SpO2 91% Gen: A&OX3, coughing, appears fatigued HEENT: PERRLA, EOMs intact b/l, nares with left sided drainage, pharynx without erythema, exudate, lesions, + drainage. Uvula midline. MMM, left TM with effusion with erythema, left maxillary sinus with TTP Neck: No LAD, no thyromegaly, no meningismus. CV: RRR, no murmur Lungs: diffusely diminished, b/l bases bronchial breath sounds and wheezing and coughing present, nasal oxygen in place Skin: No rashes, lesions, or wounds on exposed skin. No edema, normal pulses ASSESSMENT/PLAN: 1. Acute bronchitis with chronic obstructive pulmonary disease (COPD) ([facility]) ([facility]) - ICD9: 491.22, ICD10: J44.0, J20.9 (primary diagnosis) Start on rx as below Continue inhalers and IS use F/u with CXR if not improving as well as with jackscrew man - DOXYCYCLINE HYCLATE 100 MG TABLET - AMOXICILLIN 875 MG-POTASSIUM CLAVULANATE 125 MG TABLET - PREDNISONE 10 MG TABLET - XR CHEST 2V FRONTAL/LAT 2. Chronic obstructive pulmonary disease, unspecified COPD type ([facility]) - ICD9: 496, ICD10: J44.9 Start on rx as below Continue inhalers and IS use F/u with CXR if not improving as well as with jackscrew man - DOXYCYCLINE HYCLATE 100 MG TABLET - AMOXICILLIN 875 MG-POTASSIUM CLAVULANATE 125 MG TABLET - PREDNISONE 10 MG TABLET - XR CHEST 2V FRONTAL/LAT 3. Acute otitis media, left - ICD9: 382.9, ICD10: H66.92 Start on rx as below Continue inhalers and IS use F/u with CXR if not improving as well as with jackscrew man - AMOXICILLIN 875 MG-POTASSIUM CLAVULANATE 125 MG TABLET 4. Dyslipidemia - ICD9: 272.4, ICD10: E78.5 - Controlled - Counseled on healthy diet and regular exercise - Discussed need for and benefit of weight loss. BMI 44.29 kg/(m^2) 5. Impaired fasting glucose - ICD9: 790.21, ICD10: R73.01 Stable, need for continued dietary changes. 6. Vitamin D deficiency - ICD9: 268.9, ICD10: E55.9 Continue supplement 7. Essential hypertension - ICD9: 401.9, ICD10: I10 - Controlled - Continue current medications - Recommend home blood pressure monitoring, to bring results to next visit - Encouraged sodium restriction, DASH or Mediterranean diet - Recommend regular aerobic exercise 8. Stage 3 severe COPD by GOLD classification ([facility]) - ICD9: 496, ICD10: J44.9 See above 9. Fatigue, unspecified type - ICD9: 780.79, ICD10: R53.83 See above, Chronic, multifactorial 10. Oxygen dependent - ICD9: V46.2, ICD10: Z99.81 See above 11. Morbid obesity with BMI of 45.0-49.9, adult ([facility]) - ICD9: 278.01, V85.42, ICD10: E66.01, Z68.42 Stable - Behavioral intervention and - Eat well program Phuc Martines DO Return if no improvement. Follow up with Phuc Martines DO. To ER if develops chest pain, shortness of breath. Discussed risks, benefits, alternatives, and potential side effects of medications. Patient/Guardian expressed understanding and agreed with the plan. See patient instructions. Phuc Martines DO [address] [place] [address] documented in this encounterSelect [facility] Miscellaneous Notes* Telephone Encounter - Yuli Denton MA - 02/12/2024 12:08 PM EDT Patient has been identified by name and date of : Yes, Provider Martines Date 02/12/2024 Time 1208pm Patient phones for refill(s): Requested Prescriptions Pending Prescriptions Disp Refills amLODIPine (NORVASC) 10 mg tablet 90 tablet 3 Sig: Take 1 tablet by mouth once daily. Date of last office visit in primary care: 08/14/2023 Date of next office visit in primary care: Visit date not found Please advise. Thank you. Yuli Denton MA. documented in this encounterSelect [facility]04-03-2024 Instructions* Patient Instructions* Srikanth Estrada APRN.CNP - 01/29/2024 2:13 PM EDT ASSESSMENT/PLAN: 1. Skin infection - ICD9: 686.9, ICD10: L08.9 - Begin treatment with Cephalaxin (Keflex) - No lymphangetic streaking, this was defined for patient to watch for and to seek medical care immediately if appears - Follow up for recheck in 3-5 days if no better, urgent f/u for worsening symptoms. - CEPHALEXIN 500 MG CAPSULE - MUPIROCIN 2 % TOPICAL OINTMENT documented in this encounterSelect [facility]24 History of Present illness Narrative* Srikanth Estrada APRN.CNP - 01/29/2024 1:53 PM EDT Images from the original note were not included. Subjective HPI HPI Lisa Lucero is a 68 year old female who presents today for CC of right foot crack, now infected. This started 10 days ago. Has tried atb ointment. Symptoms are worsened by walking. Pre diabetic. Denies fever. .Patient presents with: Derm Problem: left bottom of foot peeling, peeled skin off now warm and sore x 10-14 days PAST MEDICAL HISTORY Diagnosis Date Chronic hypoxemic respiratory failure (HCC) COPD (chronic obstructive pulmonary disease) (HCC) 02/03/2010 Coronary artery disease No NE, CHF. No heart cath. Diverticulosis of colon (without mention of hemorrhage) Essential hypertension, benign Fibrocystic breast Former smoker Internal hemorrhoids without mention of complication Leiomyoma of uterus, unspecified Obstructive sleep apnea Mild. Not prescribed CPAP, only 2L nasal O2. PAST SURGICAL HISTORY Procedure Laterality Date BREAST LUMPECTOMY HX Right 1997 COLONOSCOPY FLX DX W/COLLJ SPEC WHEN PFRMD 08/27/08 repeat due 2017 COLONOSCOPY FLX DX W/COLLJ SPEC WHEN PFRMD 09/10/2018 Colonoscopy - due 2027 INGUINAL HERNIA REPAIR HX 1976 bilateral PAST SURGICAL HISTORY OF hemangioma left cheek REMOVAL OF IMPACTED TOOTH - COMPLETELY BONY WISDOM TEETH ALLERGIES Aleve [Naproxen] MEDICATIONS tvlmddejoca-dxyafthhe-cgramzyj (TRELEGY ELLIPTA) 100-62.5-25 mcg inhalation powder USE 1 INHALATIONDAILY INSTRUCTED triamcinolone acetonide (KENALOG) 0.5 % cream Apply 1 application to affected area two times a day as needed (foot rash, eczema). For rash/itching. Apply sparingly. Avoid face/skin fold. triamterene-hydroCHLOROthiazide (DYAZIDE) 37.5-25 mg per capsule Take 1 capsule by mouth once daily. amLODIPine (NORVASC) 10 mg tablet Take 1 tablet by mouth once daily. ipratropium-albuterol (DUONEB) 0.5 mg-3 mg(2.5 mg base)/3 mL nebu Inhale 3 mL as instructed four times daily. Inhale via nebulizer over 5-15 minutes. OXYGEN, HOME THERAPY, 3.5L at night and 6L with exertion albuterol HFA (PROVENTIL HFA, VENTOLIN HFA) 90 mcg/actuation inhaler Inhale 2 Puffs as instructed every 6 hours as needed for wheezing/shortness of breath. COMPOUNDED PRESCRIPTION Please dispense nebulizer and supply kit, including tubing, mouth piece, and hose. Assoc diagnosis: J44.9. Dispense: 1 each, Refills: 99. ASCORBIC ACID/BIOFLAVONOIDS (SIVAN C ORAL) Take 1 capsule by mouth once daily. COMPOUNDED PRESCRIPTION 3.5L of O2 at night and 6L with exertion. multivitamin tablet Take 1 tablet by mouth once daily. cephALEXin (KEFLEX) 500 mg capsule Take 1 capsule by mouth three times a day for 7 days. mupirocin (BACTROBAN) 2 % ointment Apply to affected area three times a day for 10 days. benzonatate (TESSALON PERLES) 100 mg capsule Take 1 capsule by mouth three times daily as needed for cough. FAMILY HISTORY Problem Relation Age of Onset Cancer Father BLADDER COPD Mother other (Alcoholic) Mother associated with sepsis. Hypertension Maternal Grandmother Thyroid Maternal Grandmother Social History Tobacco Use Smoking status: Former Packs/day: 1.00 Years: 38.00 Additional pack years: 0.00 Total pack years: 38.00 Types: Cigarettes Start date: 1971 Quit date: 12/20/2008 Years since quittin.1 Smokeless tobacco: Never Tobacco comments: Parents smoked in childhood home. Spouse smokes, not in home. Vaping Use Vaping Use: Never used Substance Use Topics Alcohol use: Yes Alcohol/week: 6.0 - 12.0 standard drinks of alcohol Types: 6 - 12 Cans of Beer (12oz) per week Drug use: No ROS Objective Blood pressure 112/68, pulse 94, temperature 36.6 C (97.9 F), resp. rate 18, weight 118.4 kg (261 lb 0.4 oz), SpO2 93%. Latest Ref Rng 08/14/2023 Protein, Total 6.3 - 8.0 g/dL 7.4 Albumin 3.9 - 4.9 g/dL 4.6 Calcium 8.5 - 10.2 mg/dL 10.1 Bilirubin, Total 0.2 - 1.3 mg/dL 0.6 Alkaline Phosphatase 34 - 123 U/L 82 AST 13 - 35 U/L 36 (H) ALT 7 - 38 U/L 51 (H) Glucose 74 - 99 mg/dL 110 (H) BUN 7 - 21 mg/dL 16 Creatinine 0.58 - 0.96 mg/dL 0.66 Sodium 136 - 144 mmol/L 143 Potassium 3.7 - 5.1 mmol/L 4.0 Chloride 97 - 105 mmol/L 96 (L) CO2 22 - 30 mmol/L 32 (H) Anion Gap 9 - 18 mmol/L 15 eGFR >=60 mL/min/1.73m 97 Legend: (H) High (L) Low Physical Exam Constitutional: General: She is not in acute distress. Appearance: She is not toxic-appearing or diaphoretic. HENT: Head: Normocephalic and atraumatic. Pulmonary: Effort: Pulmonary effort is normal. No accessory muscle usage or respiratory distress. Musculoskeletal: Feet: Neurological: Mental Status: She is alert and oriented to person, place, and time. ASSESSMENT/PLAN: 1. Skin infection - ICD9: 686.9, ICD10: L08.9 - Begin treatment with Cephalaxin (Keflex) - No lymphangetic streaking, this was defined for patient to watch for and to seek medical care immediately if appears - Follow up for recheck in 3-5 days if no better, urgent f/u for worsening symptoms. - CEPHALEXIN 500 MG CAPSULE - MUPIROCIN 2 % TOPICAL OINTMENT Srikanth Estrada APRN.CULTURE MANAGER documented in this encounterSelect Medical [facility] History of Present illness Narrative* Diana Gonzalez MD - 12/26/2023 11:45 AM EST Images from the original note were not included. . [facility] [place] Note Patient name: Lisa Lucero PCP: Phuc Martines DO CC: Follow-up COPD HPI: Lisa Lucero 68 year old female former 38 pack year smoker, quitting in 2008 with PMH significant for morbid obesity, severe COPD (FEV1 31%), chronic hypoxemic respiratory failure, CAD, HTN, ROXY presenting for follow-up. Current therapy consists of Trelegy Ellipta with as needed albuterol and oxygen at 5-6 L. She was using a POC but this was not adequate for her needs. Reluctant to change to E tanks with continuous flow but finally agreed. Since the change in her oxygen delivery, darianhas felt much better, more energy, less shortness of breath, sleeping well. She denies any current cough or sputum production. No wheezing. No recent upper respiratory infection or need for hospitalization. No excessive need for her albuterol. Recent lung cancer screening chest CT showed stable nodules and diffuse emphysema DME: [facility] DATA: Labs: Component Ref Range & Units 4 mo ago (08/14/23) WBC 3.70 - 11.00 k/uL 7.43 RBC 3.90 - 5.20 m/uL 4.59 Hemoglobin 11.5 - 15.5 g/dL 14.5 Hematocrit 36.0 - 46.0 % 45.6 MCV 80.0 - 100.0 fL 99.3 MCH 26.0 - 34.0 pg 31.6 MCHC 30.5 - 36.0 g/dL 31.8 RDW-CV 11.5 - 15.0 % 14.0 Platelet Count 150 - 400 k/uL 222 MPV 9.0 - 12.7 fL 11.7 Neutrophils % % 73.4 Abs Neut 1.45 - 7.50 k/uL 5.45 Lymphocytes % % 14.8 Abs Lymph 1.00 - 4.00 k/uL 1.10 Monocytes % % 8.2 Abs [place] <0.87 k/uL 0.61 Eosinophils % % 2.3 Abs Eosin <0.46 k/uL 0.17 Basophils % % 0.8 Abs Baso <0.11 k/uL 0.06 Immature Granulocytes % % 0.5 Abs Immature Gran <0.10 k/uL 0.04 NRBC /100 WBC 0.0 Absolute nRBC <0.01 k/uL <0.01 Diff Type Auto Imaging / Diagnostic Studies: DATE OF EXAM: Oct 08 2023 1:24PM [facility] 0562 - CT LUNG SCREEN WO IVCON / EXAMINATION: CHEST CT WITHOUT CONTRAST (LOW-DOSE CT LUNG CANCER SCREENING PROTOCOL) CLINICAL HISTORY: Lung cancer LDCT screening ? absence of signs or symptoms of lung cancer. Personal history of nicotine dependence. COMPARISON: Prior chest CT dated August 29, 2022 RESULT: Are nodules present? Yes, 1-5 nodules Lung nodule comments: 11 mm right apical nodule (31) unchanged. 6 mm subpleural right lower lobe nodule (176) unchanged. 4 mm right lower lobe nodule (213) unchanged. Few other scattered tiny nodulesunchanged. No new nodules. Other findings: Mild coronary calcifications. Mild degenerative changes of the thoracic spine. Bronchial thickening, severe upper lobe predominant emphysema, mosaic attenuation from chronic small airway inflammation, and scattered linear opacities likely atelectasis. 2022 2019 I personally reviewed the images as well as with the patient and agree with the above assessment PAST MEDICAL HISTORY Diagnosis Date Chronic hypoxemic respiratory failure (HCC) COPD (chronic obstructive pulmonary disease) (HCC) 02/03/2010 Coronary artery disease No NE, CHF. No heart cath. Diverticulosis of colon (without mention of hemorrhage) Essential hypertension, benign Fibrocystic breast Former smoker Internal hemorrhoids without mention of complication Leiomyoma of uterus, unspecified Obstructive sleep apnea Mild. Not prescribed CPAP, only 2L nasal O2. ALLERGIES Allergen Reactions Aleve [Naproxen] Hives Hives, edema of hands within 1 hour of use ylairyfstzx-wmljasvgw-zcmwxncv (TRELEGY ELLIPTA) 100-62.5-25 mcg inhalation powder USE 1 INHALATIONDAILY INSTRUCTED triamcinolone acetonide (KENALOG) 0.5 % cream Apply 1 application to affected area two times a day as needed (foot rash, eczema). For rash/itching. Apply sparingly. Avoid face/skin fold. triamterene-hydroCHLOROthiazide (DYAZIDE) 37.5-25 mg per capsule Take 1 capsule by mouth once daily. amLODIPine (NORVASC) 10 mg tablet Take 1 tablet by mouth once daily. ipratropium-albuterol (DUONEB) 0.5 mg-3 mg(2.5 mg base)/3 mL nebu Inhale 3 mL as instructed four times daily. Inhale via nebulizer over 5-15 minutes. OXYGEN, HOME THERAPY, 3.5L at night and 6L with exertion benzonatate (TESSALON PERLES) 100 mg capsule Take 1 capsule by mouth three times daily as needed for cough. albuterol HFA (PROVENTIL HFA, VENTOLIN HFA) 90 mcg/actuation inhaler Inhale 2 Puffs as instructed every 6 hours as needed for wheezing/shortness of breath. COMPOUNDED PRESCRIPTION Please dispense nebulizer and supply kit, including tubing, mouth piece, and hose. Assoc diagnosis: J44.9. Dispense: 1 each, Refills: 99. ASCORBIC ACID/BIOFLAVONOIDS (SIVAN C ORAL) Take 1 capsule by mouth once daily. COMPOUNDED PRESCRIPTION 3.5L of O2 at night and 6L with exertion. multivitamin tablet Take 1 tablet by mouth once daily. Social History Tobacco Use Smoking status: Former Packs/day: 1.00 Years: 38.00 Additional pack years: 0.00 Total pack years: 38.00 Types: Cigarettes Start date: 1971 Quit date: 12/20/2008 Years since quittin.0 Smokeless tobacco: Never Tobacco comments: Parents smoked in childhood home. Spouse smokes, not in home. Vaping Use Vaping Use: Never used Substance Use Topics Alcohol use: Yes Alcohol/week: 6.0 - 12.0 standard drinks of alcohol Types: 6 - 12 Cans of Beer (12oz) per week Drug use: No FAMILY HISTORY Problem Relation Age of Onset Cancer Father BLADDER COPD Mother other (Alcoholic) Mother associated with sepsis. Hypertension Maternal Grandmother Thyroid Maternal Grandmother PAST SURGICAL HISTORY Procedure Laterality Date BREAST LUMPECTOMY HX Right 1997 COLONOSCOPY FLX DX W/COLLJ SPEC WHEN PFRMD 08/27/08 repeat due 2017 COLONOSCOPY FLX DX W/COLLJ SPEC WHEN PFRMD 09/10/2018 Colonoscopy - due 2027 INGUINAL HERNIA REPAIR HX 1976 bilateral PAST SURGICAL HISTORY OF hemangioma left cheek REMOVAL OF IMPACTED TOOTH - COMPLETELY BONY WISDOM TEETH PMH, Social history, family history and surgical history reviewed and updated in EMR REVIEW OF SYSTEMS: CONSTITUTIONAL: No fevers, chills, nightsweats, unintended weight loss HEENT: Denies nasal congestion/sinus symptoms, allergy problems. CARDIOVASCULAR: No chest pain, palpitations, orthopnea, PND. Edema PULM: See HPI GI: No dysphagia/odynophagia, problematic reflux INTEGUMENTARY: Facial hemangioma PHYSICAL EXAMINATION: BP 130/78, pulse 83, RR 15, SpO2 97% on oxygen, weight 260 pounds General Appearance: Obese female, NAD. Skin: Skin color, texture, turgor normal, no suspicious rashes or lesions. Head: Normocephalic, no masses, lesions, tenderness or abnormalities. Eyes: Sclera, conjunctiva normal. Oropharynx: No oral lesions or thrush. Neck: No JVD, no masses, no adenopathy. Lungs: Not labored, normal to percussion, very diminished breath sounds, no wheezes or crackles Cardiac: Regular rate and rhythm, no murmurs. Extremities: Mild edema, no clubbing. Assessment/Plan: 1. Severe COPD, GOLD stage 3 -She will continue on Trelegy Ellipta with as needed albuterol -She will remain tobacco free 2. Chronic hypoxemic respiratory failure -Doing much better with continuous oxygen flow with activity 3. Morbid obesity -Class III obesity, BMI 44 -Weight loss advised 4. Lung nodules -Stable pulmonary nodules -Due for yearly low-dose chest CT in September Diana Gonzalez MD [facility] [place] documented in this encounter[facility]27[facility]24 Miscellaneous Notes* Telephone Encounter - Basia Victor RN - 12/24/2023 2:37 PM EST Pt called and is notified of providers results and instructions. Pt voices understanding. Basia Victor RN * Telephone Encounter - Kinjal Rushing PA-C - 12/24/2023 2:27 PM EST Please let patient know that labs are ordered that can be completed prior to her office visit. Kinjal Rushing PA-C 12/24/2023 * Telephone Encounter - Erica Canales RN - 12/24/2023 10:01 AM EST Msg routed to Dr. Martines * Telephone Encounter - Khushboo Herbert - 12/24/2023 9:55 AM EST Patient calling in requesting lab work to placed for her appt with Dr. Martines 03/13/24. Please review. Khushboo Herbert December 24, 2023 9:56 AM documented in this encounterSelect [facility]12-12-2023 History of Present illness Narrative* Reef Jes Lepe, RT(R) - 10/08/2023 1:00 PM EST Radiology Service Progress Note PATIENT NAME: Lias Lucero DATE OF SERVICE: October 08, 2023 TIME: 2:12 PM PATIENT IDENTITY VERIFICATION COMPLETED USING TWO (2) IDENTIFIERS: Name and Date of confirmedby patient verbally. FALL SCREENING: Has the patient had 2 falls in the last year or 1 fall with injury or currently using an Ambulatory Assistive Device (Walker, Cane, Wheelchair, Crutches, etc.)? No PATIENT GENDER DATA: Female. status: : No status: NO. PATIENT RELEVANT IMPLANT DATA REVIEWED: Yes RADIOLOGY DEPARTMENT: CT; Exam(s) Completed: Chest PERIPHERAL IV DATA: Not applicable SIGNED BY: RT Flower(R) October 08, 2023 2:12 PM documented in this encounterSelect [facility]11-21-2023 History of Present illness Narrative* Baltazar Mosqueda Mammo Elisha - 09/17/2023 9:30 AM EST Radiology Service Progress Note PATIENT NAME: Lisa Lucero DATE OF SERVICE: September 17, 2023 TIME: 9:26 AM PATIENT IDENTITY VERIFICATION COMPLETED USING TWO (2) IDENTIFIERS: Name and Date of confirmedby patient verbally. FALL SCREENING: Has the patient had 2 falls in the last year or 1 fall with injury or currently using an Ambulatory Assistive Device (Walker, Cane, Wheelchair, Crutches, etc.)? No PATIENT GENDER DATA: Female. status: : No status: NO. PATIENT RELEVANT IMPLANT DATA REVIEWED: Not Applicable RADIOLOGY DEPARTMENT: Mammography PERIPHERAL IV DATA: Not applicable SIGNED BY: Efe Elaineo Elisha September 17, 2023 9:26 AM documented in this encounterSelect [facility]10-20-2023 Miscellaneous Notes* Telephone Encounter - Aissatou Whelan LPN - 08/16/2023 9:29 AM EDT Phoned patient and went over results, notes from Dr Martines with understanding. * Telephone Encounter - Phuc Martines DO - 08/16/2023 7:53 AM EDT Please inform patient that her labs show that her glucose is elevated and back into prediabetes range at 5.8% Hba1c. Also her liver enzymes AST and ALT are slightly elevated. Recommend recheck labs in 6 months. Continue to work on cutting back on sugars/starches in diet. Phuc Martines DO documented in this encounterSelect [facility]10-18-2023 History of Present illness Narrative* Phuc Martines DO - 08/14/2023 12:06 PM EDT CC: Lisa Lucero is a 67 year old female who presents to the office for follow up HPI: COPD, feels it is slowly stabilizing compared to how she was feeling 3-4 months ago when she was diagnosed and treated for Covid 19 infection. Has had recent ECHO in the [address] chest was in Aug 2022 and is seeing [employer] and using her oxygen, appt with Dr. Gonzalez last in May 2022. Also has a nocturnal oximetry testing. Using oxygen at 1.5 liters at rest and 4- 5 liters through day when active and night time while sleeping. When is physically active with walking or cleaning, has to increase oxygen to 5 liters flow. does feel her chest sputum has been slightly increased since recent covid infection HTN, recently controlled, no further dizziness. No chest pain/pressure. Has chronic dyspnea. No newedema or SINHA's or syncope symptoms. IFG, dyslipidemia, knows needs to work on weight loss efforts, is currently diet controlled Has some fatigue symptoms PAST MEDICAL HISTORY Diagnosis Date COPD (chronic obstructive pulmonary disease) (HCC) 02/03/2010 Coronary artery disease No NE, CHF. No heart cath. Diverticulosis of colon (without mention of hemorrhage) Essential hypertension, benign Fibrocystic breast Former smoker Internal hemorrhoids without mention of complication Leiomyoma of uterus, unspecified Obstructive sleep apnea Mild. Not prescribed CPAP, only 2L nasal O2. PAST SURGICAL HISTORY Procedure Laterality Date BREAST LUMPECTOMY HX Right 1997 COLONOSCOPY FLX DX W/COLLJ SPEC WHEN PFRMD 08/27/08 repeat due 2017 COLONOSCOPY FLX DX W/COLLJ SPEC WHEN PFRMD 09/10/2018 Colonoscopy - due 2027 INGUINAL HERNIA REPAIR HX 1975 bilateral PAST SURGICAL HISTORY OF hemangioma left cheek REMOVAL OF IMPACTED TOOTH - COMPLETELY BONY WISDOM TEETH Current Outpatient Medications Medication Sig triamterene-hydroCHLOROthiazide (DYAZIDE) 37.5-25 mg per capsule Take 1 capsule by mouth once daily. amLODIPine (NORVASC) 10 mg tablet Take 1 tablet by mouth once daily. ipratropium (ATROVENT) 0.02 % nebulizer solution Use 2.5 mL via nebulizer four times daily as needed for wheezing/shortness of breath. Use over 5-15minutes. albuterol (PROVENTIL) 2.5 mg /3 mL (0.083 %) nebulizer solution Use 3 mL via nebulizer every 4 hours as needed for wheezing/shortness of breath. Use over 5-15minutes. ipratropium-albuterol (DUONEB) 0.5 mg-3 mg(2.5 mg base)/3 mL nebu Inhale 3 mL as instructed four times daily. Inhale via nebulizer over 5-15 minutes. ebwkngkomiz-hijkyomqo-gblkpuyi (TRELEGY ELLIPTA) 100-62.5-25 mcg inhalation powder USE 1 INHALATIONDAILY INSTRUCTED OXYGEN, HOME THERAPY, 3.5L at night and 6L with exertion nystatin (NYSTOP) powder Apply 1 application to affected area four times daily. albuterol HFA (PROVENTIL HFA, VENTOLIN HFA) 90 mcg/actuation inhaler Inhale 2 Puffs as instructed every 6 hours as needed for wheezing/shortness of breath. COMPOUNDED PRESCRIPTION Please dispense nebulizer and supply kit, including tubing, mouth piece, and hose. Assoc diagnosis: J44.9. Dispense: 1 each, Refills: 99. ASCORBIC ACID/BIOFLAVONOIDS (SIVAN C ORAL) Take 1 capsule by mouth once daily. COMPOUNDED PRESCRIPTION 3.5L of O2 at night and 6L with exertion. multivitamin tablet Take 1 tablet by mouth once daily. triamcinolone acetonide (KENALOG) 0.5 % cream Apply 1 application to affected area two times a day as needed (foot rash, eczema). For rash/itching. Apply sparingly. Avoid face/skin fold. benzonatate (TESSALON PERLES) 100 mg capsule Take 1 capsule by mouth three times daily as needed for cough. No current facility-administered medications for this visit. ALLERGIES Allergen Reactions Aleve [Naproxen] Hives Hives, edema of hands within 1 hour of use Social History Tobacco Use Smoking status: Former Packs/day: 1.00 Years: 38.00 Additional pack years: 0.00 Total pack years: 38.00 Types: Cigarettes Start date: 1971 Quit date: 12/20/2008 Years since quittin.6 Smokeless tobacco: Never Tobacco comments: Parents smoked in childhood home. Spouse smokes, not in home. Vaping Use Vaping Use: Never used Substance Use Topics Alcohol use: Yes Alcohol/week: 15.0 - 30.0 standard drinks of alcohol Types: 6 - 12 Cans of Beer (12oz) per week Drug use: No ROS: See HPI PE: BP 120/70 Pulse 88 Temp (Src) 97 (Right Tympanic) Resp 20 Wt 265 lb (120.2kg) Gen: A&OX3, NAD, non-toxic appearing HEENT: PERRLA, wearing glasses, EOMs intact b/l, nares without drainage, pharynx without erythema, exudate, lesions, or drainage. Uvula midline. Neck: No LAD, no thyromegaly, no meningismus. CV: RRR, no murmur, normal s1s2 Lungs: no rhonchi or rales or wheezes, mildly diminished bases and prolonged expiratory phase diffusely Oxygen per nasal canula in place in office Skin: dry flaking skin on bottom of feet Trace symmetric edema, varicose veins present Abd: soft, overweight/obese ASSESSMENT/PLAN: 1. Essential hypertension - ICD9: 401.9, ICD10: I10 (primary diagnosis) - Controlled - Continue current medications - Recommend home blood pressure monitoring, to bring results to next visit - Encouraged sodium restriction, DASH or Mediterranean diet - Recommend regular aerobic exercise - Discussed need for and benefit of weight loss. BMI 45.49 kg/(m^2) - COMP METABOLIC PANEL - CBC + DIFF - TSH BLD - T4 FREE/FREE THYROX - T3 FREE BLD 2. Need for influenza vaccination - ICD9: V04.81, ICD10: Z23 - INFLUENZA VACCINE, PRSV FREE, AGE 65+ YR, HIGH DOSE, QUADRIVALENT (FLUZONE HIGH-DOSE) 3. Encounter for screening mammogram for malignant neoplasm of breast - ICD9: V76.12, ICD10: Z12.31 - Encouraged monthly BSE - ANUSHA SCREENING 4. Need for RSV immunization - ICD9: V04.82, ICD10: Z29.11 - RSV VACCINE, BIVALENT (ABRYSVO) 5. Vitamin D deficiency - ICD9: 268.9, ICD10: E55.9 Continue supplement. - VITAMIN D 25 HYDROXY 6. Impaired fasting glucose - ICD9: 790.21, ICD10: R73.01 Recheck labs. - HGB A1C - COMP METABOLIC PANEL - CBC + DIFF - VITAMIN B12 BLOOD 7. Stage 3 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) - ICD9: 496, ICD10: J44.9 Stable, continue oxygen 8. Oxygen dependent - ICD9: V46.2, ICD10: Z99.81 Stable, continue oxygen 9. Fatigue, unspecified type - ICD9: 780.79, ICD10: R53.83 Recheck labs. - COMP METABOLIC PANEL - CBC + DIFF - TSH BLD - T4 FREE/FREE THYROX - T3 FREE BLD - VITAMIN B12 BLOOD 10. Rash of foot - ICD9: 782.1, ICD10: R21 rx as below prn - TRIAMCINOLONE ACETONIDE 0.5 % TOPICAL CREAM 11. Dyslipidemia - ICD9: 272.4, ICD10: E78.5 - Controlled - Continue current medications - Counseled on healthy diet and regular exercise - LIPID PANEL BASIC Phuc Martines DO Return if no improvement. Follow up with Phuc Martines DO. To ER if develops chest pain, shortness of breath Discussed risks, benefits, alternatives, and potential side effects of medications. Patient/Guardian expressed understanding and agreed with the plan. See patient instructions. Phuc Martines DO [address] [place] [address] documented in this encounterSelect [facility]10-02-2023 Miscellaneous Notes* Telephone Encounter - Amanda Pearson LPN - 07/29/2023 11:18 AM EDT ABRAHAM-- NOV--08/14/23 LAST REFILL--08/01/22 90 AND 3 REFILLS LAST LABS--07/30/22 documented in this encounterSelect Medical [facility]ty [facility]08-17-2023 Procedure note* Janki Ayala RPFT - 06/13/2023 1:02 PM EDTAssociated Order(s): OXIMETRY WITH AMBULATION RESPIRATORY THERAPY OXIMETRY WITH AMBULATION Oximetry with Ambulation Test for This Encounter O2 Device O2 Adapter NC O2 Flow SpO2% HR Activity Ft Walked (ft) Time (min) Avg Speed (MPH) R/A 80 97 Resting NC 2 86 90 Resting NC 3 89 87 Resting NC 4 90 87 Resting NC 5 92 87 Resting NC 5 86 108 Walking, usual pace 280 2.1 1.52 NC 6 95 88 Resting NC 6 94 102 Walking, usual pace 380 3 1.44 General Information Pulse Oximetry Site Total Time Spent O2 Supply Carrier Walking Assistance/Device L Index Finger 30 3 Wheel Walker None NAME: YOAV López PATIENT NAME: Lisa Lucero DATE: June 13, 2023 TIME: 1:02 PM Comment: documented in this encounterSelect Medical [facility]ty [facility]08-17-2023 History of Present illness Narrative* Hodan Christine PA-C - 06/13/2023 1:00 PM EDT Images from the original note were not included. Patient: Lisa Lucero PCP: Phuc Martines DO CC: follow up HPI: Lisa Lucero 67 year old morbidly obese female former [id number] smoker, quitting 1970with PMH significant for COPD, oxygen dependence, CAD, HTN, and ROXY (mild). Had Covid in August 2022. Did not require ED visit or hospitalization. Current therapy consists of Trelegy with as neededAlbuterol. Today, patient reports she is feeling more short of breath with minimal effort. No significant cough, sputum production, or wheezing. No chest pain or tightness. No ED visits or hospitalizations. No recent URI/bronchitis. Currently wearing 5L supplemental oxygen. DME: Bruce. Patient isvery active outside of her home. PAST MEDICAL HISTORY Diagnosis Date COPD (chronic obstructive pulmonary disease) (HCC) 02/03/2010 Coronary artery disease No NE, CHF. No heart cath. Diverticulosis of colon (without mention of hemorrhage) Essential hypertension, benign Fibrocystic breast Former smoker Internal hemorrhoids without mention of complication Leiomyoma of uterus, unspecified Obstructive sleep apnea Mild. Not prescribed CPAP, only 2L nasal O2. Allergies: Aleve [Naproxen] Hives Comment:Hives, edema of hands within 1 hour of use amLODIPine (NORVASC) 10 mg tablet Take 1 tablet by mouth once daily. ipratropium (ATROVENT) 0.02 % nebulizer solution Use 2.5 mL via nebulizer four times daily as needed for wheezing/shortness of breath. Use over 5-15minutes. albuterol (PROVENTIL) 2.5 mg /3 mL (0.083 %) nebulizer solution Use 3 mL via nebulizer every 4 hours as needed for wheezing/shortness of breath. Use over 5-15minutes. ipratropium-albuterol (DUONEB) 0.5 mg-3 mg(2.5 mg base)/3 mL nebu Inhale 3 mL as instructed four times daily. Inhale via nebulizer over 5-15 minutes. clxfpajospv-tregelhlp-xlpxhuwp (TRELEGY ELLIPTA) 100-62.5-25 mcg inhalation powder USE 1 INHALATIONDAILY INSTRUCTED OXYGEN, HOME THERAPY, 3.5L at night and 6L with exertion benzonatate (TESSALON PERLES) 100 mg capsule Take 1 capsule by mouth three times daily as needed for cough. triamterene-hydroCHLOROthiazide (DYAZIDE) 37.5-25 mg per capsule Take 1 capsule by mouth once daily. nystatin (NYSTOP) powder Apply 1 application to affected area four times daily. albuterol HFA (PROVENTIL HFA, VENTOLIN HFA) 90 mcg/actuation inhaler Inhale 2 Puffs as instructed every 6 hours as needed for wheezing/shortness of breath. COMPOUNDED PRESCRIPTION Please dispense nebulizer and supply kit, including tubing, mouth piece, and hose. Assoc diagnosis: J44.9. Dispense: 1 each, Refills: 99. ASCORBIC ACID/BIOFLAVONOIDS (SIVAN C ORAL) Take 1 capsule by mouth once daily. COMPOUNDED PRESCRIPTION 3.5L of O2 at night and 6L with exertion. multivitamin tablet Take 1 tablet by mouth once daily. Social History Tobacco Use Smoking status: Former Packs/day: 1.00 Years: 38.00 Additional pack years: 0.00 Total pack years: 38.00 Types: Cigarettes Start date: 1971 Quit date: 12/20/2008 Years since quittin.4 Smokeless tobacco: Never Tobacco comments: Parents smoked in childhood home. Spouse smokes, not in home. Vaping Use Vaping Use: Never used Substance Use Topics Alcohol use: Yes Alcohol/week: 15.0 - 30.0 standard drinks of alcohol Types: 6 - 12 Cans of Beer (12oz) per week Drug use: No Family History Problem Relation Age of Onset Cancer Father BLADDER COPD Mother other (Alcoholic) Mother associated with sepsis. Hypertension Maternal Grandmother Thyroid Maternal Grandmother PAST SURGICAL HISTORY Procedure Laterality Date BREAST LUMPECTOMY HX Right 1997 COLONOSCOPY FLX DX W/COLLJ SPEC WHEN PFRMD 08/27/08 repeat due 2017 COLONOSCOPY FLX DX W/COLLJ SPEC WHEN PFRMD 09/10/2018 Colonoscopy - due 2027 INGUINAL HERNIA REPAIR HX 1976 bilateral PAST SURGICAL HISTORY OF hemangioma left cheek REMOVAL OF IMPACTED TOOTH - COMPLETELY BONY WISDOM TEETH I reviewed the past medical history, family history, social history and surgical history with changes noted above and updated in EMR. IMMUNIZATIONS Prevnar - 02/06/2023 Pneumovax - 05/06/2017, 07/07/2008 Influenza - 08/01/2022 COVID-19 - 08/15/2021, 01/03/2021, 12/15/2020 ROS: CONSTITUTIONAL: No fevers, chills, nightsweats, unintended weight loss HEENT: Denies nasal congestion/sinus symptoms, allergy problems. CARDIOVASCULAR: No chest pain, palpitations, orthopnea, edema. PULM: See HPI GI: No heartburn, reflux. INTEGUMENTARY: No new skin changes or rashes. Dry skin. PHYSICAL EXAMINATION: BP 144/86 Pulse (P) 102 Resp (P) 16 Wt (P) 120.7 kg (266 lb) SpO2 (!) 80% BMI (P) 45.66 kg/m O2: RA Gen: No acute distress. Cooperative with examination. HEENT: Normocephalic. Sclera, conjunctiva clear. Oral hygeine and dentition good. No thrush. Resp: No stridor, accessory respiratory muscle use, supra-sternal or intercostal retractions. No wheezes, crackles. CV: Regular rythm. Heart tones normal. Radial pulses normal. Abd: Non distended. MSK: No kyphoscoliosis. Ext: Warm and well perfused. No clubbing, cyanosis, edema. Skin: No rash, ecchymoses. Neuro: Mental status normal. Affect normal. No tremor. DATA: Oximetry, 06/13/2023 Oximetry with Ambulation Test for This Encounter O2 Device O2 Adapter NC O2 Flow SpO2% HR Activity Ft Walked (ft) Time (min) Avg Speed (MPH) R/A 80 97 Resting NC 2 86 90 Resting NC 3 89 87 Resting NC 4 90 87 Resting NC 5 92 87 Resting NC 5 86 108 Walking, usual pace 280 2.1 1.52 NC 6 95 88 Resting NC 6 94 102 Walking, usual pace 380 3 1.44 PFT 02/2022: Review of PFTs shows severe obstruction Imaging / Diagnostic Studies: CXR, 09/28/2022 IMPRESSION: Overall findings unchanged. RESULT: Lines, tubes, and devices: None. Lungs and pleura: There are lucencies in the upper lungs, with somewhat crowding of the pulmonary markings in the lower lungs, suggestive of COPD. Mild atelectasis noted in the lingula and right middle lobe. The lungs are otherwise clear of consolidations. No solid mass. No pleural effusions or pneumothorax. Cardiomediastinal silhouette: Normal cardiomediastinal silhouette. Bones and soft tissues: Unremarkable. CT chest, 08/29/2022 IMPRESSION: Persistence of a RIGHT middle lobe. Follow-up recommendations as below. Other small lower lung nodules have resolved. Stable apical density consistent with fibrosis. Developing splenic density possibly a cyst. Suggest correlation with ultrasound. Ectasia ascending aorta. Comparison: 05/05/2021 CT RESULT: Limitations: None. Lines, tubes, and devices: None. Lung parenchyma and airways: Stable spiculated RIGHT apical mass, about 1.1 cm in diameter. Previously described small nodular densities in the lower lungs have predominantly resolved. There is persistence of a 3 to 4 mm density in the anterior RIGHT middle lobe (6:107). Centrilobular emphysema unchanged. Scattered stable linear densities. The central airways are patent. Pleural space: No pleural effusion. No pleural thickening. Lower neck, lymph nodes, and mediastinum: The imaged thyroid gland is normal. No lymphadenopathy in the supraclavicular, axillary, mediastinal, or hilar regions. Heart, pericardium, and thoracic vessels: Borderline aneurysmal dilatation ascending aorta 3.9-4.1 cm in diameter. The The cardiac chambers are normal in size. No coronary artery atherosclerotic calcifications are noted, although the study is not optimized for coronary assessment. No pericardial effusion or thickening. Bones and soft tissues: No destructive bone lesion. Chest wall is unremarkable. Upper abdomen: There is resultant lateral superior splenic mass measuring 2.5 cm in diameter. This has fluid attenuation. [employer] Financ[employer] Consultant (topogram) images: No additional findings. ASSESSMENT/PLAN: 1. COPD, severe (HCC) - ICD9: 496, ICD10: J44.9 (primary diagnosis) Continue on Trelegy with as needed Albuterol. - PORTABLE OXYGEN 2. Chronic hypoxemic respiratory failure (HCC) - ICD9: 518.83, 799.02, ICD10: J96.11 Based on oximetry today, patient requires 6L supplemental oxygen with exertion. She will need a portable device that will deliver 6L. - PORTABLE OXYGEN 3. Former cigarette smoker - ICD9: V15.82, ICD10: Z87.891 Former 38 pack year smoker with sequelae of severe COPD. Referral to lung cancer screening. Will be due for LDCT in August 2023. - CONSULT [facility]G [facility]ER SCREENING [facility] 4. Morbid obesity (HCC) - ICD9: 278.01, ICD10: E66.01 Weight loss advised. Portions of this documentation were copied and pasted from previous office visit notes in order to provide a cohesive continuity of the history. The note has been reviewed and edited and updated as necessary. Hodan Christine PA-C documented in this encounterSelect [facility]08-17-2023 History of Present illness Narrative* Janki Ayala RPFT - 06/13/2023 12:58 PM EDT PULM FUNCTION SMARTBLOCK: Provider: Hodan Christine PA-C Assisting Tech: Janki Ayala RPFT Oximetry - Ambulation: 1 documented in this encounterSelect Medical [facility]ty [facility]08-17-2023 Nurse Note* Isi Osorio LPN - 06/13/2023 12:53 PM EDT Intake information documented in the prior visit with YOAV López today. documented in this encounterSelect Medical [facility]ty [facility]08-03-2023 Miscellaneous Notes* Telephone Encounter - Lory Chavis - 05/30/2023 4:07 PM EDT Pt called back and confirmed * Telephone Encounter - Tara Porras - 05/30/2023 4:05 PM EDT Patient scheduled for 06/13 oximetry and office visit. Left message for patient to call to confirm. * Telephone Encounter - Tara Porras - 05/30/2023 2:48 PM EDT Please advise when patient cn be seen by Sara Christine,. This PSS could not find anythinh up through October 2023. * Telephone Encounter - Hodan Christine PA-C - 05/30/2023 12:44 PM EDT Order placed. Patient may be scheduled. Sara * Telephone Encounter - Isi Osorio LPN - 05/30/2023 11:58 AM EDT Spoke with patient. Will need updated oximetry and face to face with Dr. Gonzalez or Sara sent to [facility] for O2 recert. Isi Osorio LPN * Telephone Encounter - Patrizia Jolly LPN - 05/30/2023 11:26 AM EDT Patient called in stating would like a call back from Paige, has questions on tests needed to update insurance to have home O2 covered. Patient last appointment was 07/04/2022. Patient was told if not updated, she will be changed to self pay. Patient did not want to be sent to scheduling, wanted to discuss with Paige. Please review and advise. Thank you. [place] # [phone] Patrizia Jolly LPN documented in this encounterSelect Medical [facility]ty [facility]02-07-2023 Miscellaneous Notes* Telephone Encounter - Claudia Ennis Ma - 12/04/2022 2:39 PM EST Last office visit: 09/28/22 F/u scheduled: 02/06/23 Claudia Ennis Ma * Telephone Encounter - Gwendolyn Fermin - 12/04/2022 2:12 PM EST Patient has been identified by name and date of : Yes Requested Prescriptions Pending Prescriptions Disp Refills ipratropium-albuterol (DUONEB) 0.5 mg-3 mg(2.5 mg base)/3 mL nebu 120 Each 11 Sig: Inhale 3 mL as instructed four times daily. Inhale via nebulizer over 5-15 minutes. dbmbsgagsra-eghpfgfae-gycldfir (TRELEGY ELLIPTA) 100-62.5-25 mcg inhalation powder 3 Each 3 Sig: USE 1 INHALATION DAILY INSTRUCTED RX INSTRUCTIONS: Patient aware RX will be sent to pharmacy. No need to notify patient. Gwendolyn Melendez Pss documented in this encounterSelect [facility]12-28-2022 Miscellaneous Notes* Telephone Encounter - Yuli Britton Ma - 10/24/2022 9:14 AM EST All notes and order for oxygen faxed to number provided. Yuli Britton Ma * Telephone Encounter - Pratibha King APRN.CNP - 10/19/2022 2:48 PM EST Was this taken care of? Looks like I placed the order on 10/12. Pratibha King APRN.CNP * Telephone Encounter - Yuli Britton Ma - 10/13/2022 7:54 AM EST Unable to see order Yuli Britton Ma * Telephone Encounter - Pratibha King APRN.CNP - 10/12/2022 1:25 PM EST Order placed. Pratibha King APRN.CNP * Telephone Encounter - Yuli Britton Ma - 10/12/2022 10:[address] new order for home oxygen then will fax everything to number given. Yuli Britton Ma * Telephone Encounter - Yuli Britton Ma - 10/11/2022 12:15 PM EST Reports at my desk ready to fax Yuli Britton Ma documented in [facility] encounter[facility] Procedure note* YOAV López - 10/10/2022 11:15 AM ESTAssociated Order(s): OXIMETRY WITH AMBULATION RESPIRATORY THERAPY OXIMETRY WITH AMBULATION Oximetry with Ambulation Test for This Encounter O2 Device O2 Adapter NC O2 Flow SpO2% HR Activity Ft Walked (ft) Time (min) Avg Speed (MPH) R/A 95 100 Resting R/A 86 106 Walking, usual pace 165 1.1 1.7 NC 2 95 100 Resting NC 2 94 112 Walking, usual pace 400 3 1.52 General Information Pulse Oximetry Site Total Time Spent O2 Supply Carrier Walking Assistance/Device Forehead 20 3 Wheel Walker 3 Wheel Walker NAME: YOAV López PATIENT NAME: Lisa Lucero DATE: October 10, 2022 TIME: 11:15 AM Comment: documented in this encounterSelect [facility]12-14-2022 History of Present illness Narrative* YOAV López - 10/10/2022 10:58 AM EST PULM FUNCTION SMARTBLOCK: Provider: Phuc Martines DO Assisting Tech: YOAV López Oximetry - Ambulation: 1 documented in this encounterSelect [facility]12-02-2022 History of Present illness Narrative* Vonnie Smith RT(R) - 09/28/2022 12:50 PM EST Radiology Service Progress Note PATIENT NAME: Lisa Lucero DATE OF SERVICE: September 28, 2022 TIME: 1:09 PM PATIENT IDENTITY VERIFICATION COMPLETED USING TWO (2) IDENTIFIERS: Name and Date of confirmedby patient verbally. FALL SCREENING: Has the patient had 2 falls in the last year or 1 fall with injury or currently using an Ambulatory Assistive Device (Walker, Cane, Wheelchair, Crutches, etc.)? No PATIENT GENDER DATA: Female. status: : No status: NO. PATIENT RELEVANT IMPLANT DATA REVIEWED: Yes RADIOLOGY DEPARTMENT: General X-ray: Exam(s) Completed: Chest X-Ray PERIPHERAL IV DATA: Not applicable SIGNED BY: RT Ban(R) September 28, 2022 1:09 PM documented in this encounterSelect [facility]12-02-2022 Instructions* Patient Instructions* Pratibha King APRN.CNP - 09/28/2022 12:45 PM EST Start the mucinex, take twice daily for 14 days. Start the doxycycline (antibiotic) twice daily for 10 days. Take the benzonatate (tessalon perles) 3 times daily as needed for cough and to break up mucous. Start the prednisone toady, will last for 9 days. Let me know by the beginning of next week if you're not improving or things are worsening. documented in this encounterSelect [facility]12-02-2022 History of Present illness Narrative* Pratibha King APRN.CNP - 09/28/2022 12:09 PM EST Chief Complaint Patient presents with: Nasal Congestion: Chest congestion , cough , sx worsened yesterday. Tested + for covid x 1 week ago. HPI Lisa Lucero is a 67 year old female who presents here today for Above Complaints.. Positive home test for COVID on 09/22. Sx started on 09/21 Today: Nasal congestion-greenish discharge. Feels like it is getting thicker in her lungs. Has been using 1 Mucinex daily and 1 breathing tx daily for the past 4 days. Did feel like this washelping, but last night seemed to worsen. Occasionally coughing mucous up, but seems to be stuck. Ran a fever for the first 4 days. Appetite is decreased. Drinking a lot water. Chronically utilizes O2-3.5 L at home when at rest. When out of the house and mobile uses 5L. Mild earache to left ear. No drainage. Past medical history, appointments, medications, allergies reviewed. Previous Medical History PAST MEDICAL HISTORY Diagnosis Date COPD (chronic obstructive pulmonary disease) ([facility]) 02/03/2010 Coronary artery disease No NE, CHF. No heart cath. Diverticulosis of colon (without mention of hemorrhage) Essential hypertension, benign Fibrocystic breast Former smoker Internal hemorrhoids without mention of complication Leiomyoma of uterus, unspecified Obstructive sleep apnea Mild. Not prescribed CPAP, only 2L nasal O2. Previous Surgical History PAST SURGICAL HISTORY Procedure Laterality Date BREAST LUMPECTOMY HX Right 1997 COLONOSCOPY FLX DX W/COLLJ SPEC WHEN PFRMD 08/27/08 repeat due 2017 COLONOSCOPY FLX DX W/COLLJ SPEC WHEN PFRMD 09/10/2018 Colonoscopy - due 2027 INGUINAL HERNIA REPAIR HX 1976 bilateral PAST SURGICAL HISTORY OF hemangioma left cheek REMOVAL OF IMPACTED TOOTH - COMPLETELY BONY WISDOM TEETH Family History FAMILY HISTORY Problem Relation Age of Onset Cancer Father BLADDER COPD Mother other (Alcoholic) Mother associated with sepsis. Hypertension Maternal Grandmother Thyroid Maternal Grandmother Patient Allergies ALLERGIES Allergen Reactions Aleve [Naproxen] Hives Hives, edema of hands within 1 hour of use Current Medications Current Outpatient Medications on File Prior to Visit Medication Sig amLODIPine (NORVASC) 10 mg tablet Take 1 tablet by mouth once daily. triamterene-hydroCHLOROthiazide (DYAZIDE) 37.5-25 mg per capsule Take 1 capsule by mouth once daily. nystatin (NYSTOP) powder Apply 1 application to affected area four times daily. albuterol HFA (PROVENTIL HFA, VENTOLIN HFA) 90 mcg/actuation inhaler Inhale 2 Puffs as instructed every 6 hours as needed for wheezing/shortness of breath. yjwdccgizgy-inwlzflyb-wpmtrorg (TRELEGY ELLIPTA) 100-62.5-25 mcg inhalation powder USE 1 INHALATIONDAILY INSTRUCTED ipratropium-albuterol (DUONEB) 0.5 mg-3 mg(2.5 mg base)/3 mL nebu Inhale 3 mL as instructed four times daily. Inhale via nebulizer over 5-15 minutes. (Patient taking differently: Inhale 3 mL as instructed as needed. Inhale via nebulizer over 5-15 minutes.) COMPOUNDED PRESCRIPTION Please dispense nebulizer and supply kit, including tubing, mouth piece, and hose. Assoc diagnosis: J44.9. Dispense: 1 each, Refills: 99. ASCORBIC ACID/BIOFLAVONOIDS (SIVAN C ORAL) Take 1 capsule by mouth once daily. COMPOUNDED PRESCRIPTION 3.5L of O2 at night and 6L with exertion. multivitamin tablet Take 1 tablet by mouth once daily. Current Facility-Administered Medications on File Prior to Visit Medication perflutren lipid microspheres 1.3 mL in NaCl (PF) 0.9% 10 mL injection (DEFINITY) sodium chloride 0.9 % (flush) 10 mL (BD POSIFLUSH) Social History Social History Tobacco Use Smoking status: Former Packs/day: 1.00 Years: 38.00 Pack years: 38.00 Types: Cigarettes Start date: 1971 Quit date: 12/20/2008 Years since quittin.7 Smokeless tobacco: Never Tobacco comments: Parents smoked in childhood home. Spouse smokes, not in home. Vaping Use Vaping Use: Never used Substance Use Topics Alcohol use: Yes Alcohol/week: 15.0 - 30.0 standard drinks Types: 6 - 12 Cans of Beer (12oz) per week Drug use: No Review of Symptoms REVIEW OF SYSTEMS See HPI, otherwise negative EXAM: BP 142/94 (BP Site: Left Arm, BP Position: Sitting, BP Cuff Size: Regular Adult) Pulse 99 Temp 37.2 C (99 F) Resp 20 Wt 116.3 kg (256 lb 6.4 oz) SpO2 94% BMI 44.01 kg/m General Appearance: ill-appearing, non-toxic, alert, in no acute distress, well- hydrated, well nourished. Head: Normocephalic, no masses, lesions, tenderness or abnormalities. Eyes: Anicteric sclera. Pupils are equally round and reactive to light. Extraocular movements are intact. . Ears: External ears normal, canals clear. Nose/Sinuses: Nares normal, septum midline, mucosa normal, no drainage or sinus tenderness. Oropharynx: Lips, mucosa, and tongue normal, teeth and gums normal, oropharynx normal. Neck: Positive findings: supraclavicular and level II adenopathy. Lungs: poor air exchange throughout, expiratory wheezing to BUL. Heart: RRR without murmur, gallop, or rubs. No ectopy. Health Maintenance List HIV SCREENING Never done COVID-19 VACCINE(4 - Booster for Pfizer series) due on 10/10/2021 ADVANCE DIRECTIVE DISCUSSION Never done BONE DENSITY due on 2022 PNEUMOCOCCAL: 65+(3 - PPSV23 if available, else PCV20) due on 2022 BP CONTROLLED (<130/80) due on 01/30/2023 ANNUAL PCP TEAM CHRONIC DISEASE VISIT due on 08/01/2023 LUNG CANCER SCREENING due on 08/29/2023 MAMMOGRAM due on 09/11/2023 DIABETES SCREEN due on 07/30/2025 DTAP,TDAP,TD(3 - Td or Tdap) due on 11/09/2025 LIPID SCREEN due on 07/30/2027 COLORECTAL CANCER SCREENING due on 09/10/2028 ALPHA-1 ANTITRYPSIN DEFICIENCY SCREENING Completed SPIROMETRY Completed INFLUENZA Completed DEPRESSION ASSESSMENT Completed HEPATITIS C SCREENING Completed SHINGRIX VACCINE Completed Data reviewed Previous records, office notes ASSESSMENT/PLAN: 1. COVID - ICD9: 079.89, ICD10: U07.1 (primary diagnosis) Feel likely combination of COVID worsened by underlying COPD. R/o pneumonia. Discussed red flag s/s. - DOXYCYCLINE HYCLATE 100 MG TABLET - PREDNISONE 10 MG TABLET - BENZONATATE 100 MG CAPSULE - XR CHEST 2V FRONTAL/LAT - GUAIFENESIN ER 600 MG TABLET, EXTENDED RELEASE 12 HR 2. Chronic obstructive pulmonary disease, unspecified COPD type (HCC) - ICD9: 496, ICD10: J44.9 Feel likely combination of COVID worsened by underlying COPD. R/o pneumonia. Discussed red flag s/s. - DOXYCYCLINE HYCLATE 100 MG TABLET - PREDNISONE 10 MG TABLET - BENZONATATE 100 MG CAPSULE - XR CHEST 2V FRONTAL/LAT - GUAIFENESIN ER 600 MG TABLET, EXTENDED RELEASE 12 HR 3. Bacterial sinusitis - ICD9: 473.9, 041.9, ICD10: J32.9, B96.89 Feel likely combination of COVID worsened by underlying COPD. R/o pneumonia. Discussed red flag s/s. - DOXYCYCLINE HYCLATE 100 MG TABLET - PREDNISONE 10 MG TABLET - BENZONATATE 100 MG CAPSULE - XR CHEST 2V FRONTAL/LAT - GUAIFENESIN ER 600 MG TABLET, EXTENDED RELEASE 12 HR 4. Oxygen dependent - ICD9: V46.2, ICD10: Z99.81 Feel likely combination of COVID worsened by underlying COPD. R/o pneumonia. Discussed red flag s/s. - DOXYCYCLINE HYCLATE 100 MG TABLET - PREDNISONE 10 MG TABLET - BENZONATATE 100 MG CAPSULE - XR CHEST 2V FRONTAL/LAT - GUAIFENESIN ER 600 MG TABLET, EXTENDED RELEASE 12 HR Pratibha King APRN.CULTURE MANAGER documented in this encounterSelect [facility]11-28-2022 Miscellaneous Notes* Telephone Encounter - Phuc Martines DO - 09/24/2022 7:24 AM EST Paperwork states she needs to have ambulatory oxygen testing within 30 days. Please help her set upthese tests at [facility] Phuc Martines DO * Telephone Encounter - Erica Mckenzie LPN - 09/14/2022 3:45 PM EST Information on your desk.. * Telephone Encounter - Phuc Martines DO - 09/12/2022 10:21 PM EST I don't have any of this information on my desk Phuc Martines DO * Telephone Encounter - Christy Galicia LPN - 09/12/2022 3:54 PM EST Malika from [facility] called regarding O2 orders. Malika is faxing another form with instructions that explains what is needed for pt to get O2 covered. The exertion testing with ambulation from February is too old, testing needs to be done within 30 days. Please watch for faxed form. Christy Galicia LPN documented in this encounterSelect [facility]11-16-2022 Miscellaneous Notes* Letter - Mammography Coordinator - 09/12/2022 2:01 PM EST September 12, 2022 PID: [id number] Lisa Lucero [address] [place] [address] Dear Ms. Lcuero, We are pleased to inform you that the results of your recent breast imaging exam on 09/11/2022 are normal. Early detection of cancer is very important. We also understand recommendations regarding breast cancer screening are controversial. Please discuss with your primary care provider which strategy is best for you and whether a mammogram is right for you. Your imaging studies and report will be kept on file at [facility] as part of your permanent medical record and are available for your continuing care. Thank you for allowing us to help in meeting your health care needs. Sincerely, Dr. Jameson Interpreting Radiologist [facility] (Normal over 40) documented in this encounterSelect Medical [facility]ty [facility]11-10-2022 Miscellaneous Notes* Telephone Encounter - Basia iVctor RN - 09/06/2022 7:53 PM EST Pt called and is notified of providers results and instructions. Pt voices understanding. 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 We will repeat this test in 6 months to reassess. Please assist her to schedule this testing. Pratibha King APRN.CNP documented in this encounterSelect [facility]11-07-2022 History of Present illness Narrative* Bella Rubalcava RDMS - 09/03/2022 1:00 PM EST Radiology Service Progress Note PATIENT NAME: Lisa Lucero DATE OF SERVICE: September 03, 2022 TIME: 1:41 PM PATIENT IDENTITY VERIFICATION COMPLETED USING TWO (2) IDENTIFIERS: Name and Date of confirmedby patient verbally. FALL SCREENING: Has the patient had 2 falls in the last year or 1 fall with injury or currently using an Ambulatory Assistive Device (Walker, Cane, Wheelchair, Crutches, etc.)? No PATIENT GENDER DATA: Female. status: : No status: NO. PATIENT RELEVANT IMPLANT DATA REVIEWED: Not Applicable RADIOLOGY DEPARTMENT: Ultrasound PERIPHERAL IV DATA: Not applicable SIGNED BY: Bella Rubalcava RDMS September 03, 2022 1:41 PM documented in this encounterSelect [facility]11-04-2022 Miscellaneous Notes* Telephone Encounter - Kizzy Castellanos RN - 08/31/2022 8:09 AM EDT Patient calls and notified of results and providers instructions. Patient verbalizes understanding.Patient transferred to schedule US of abd spleen. Kizzy Castellanos RN * Telephone Encounter - Yuli Brittno Ma - 08/30/2022 2:06 PM EDT Attempted to contact patient with no answer. Left message for patient to return call. Yuli Britton Ma * Telephone Encounter - Pratibha King APRN.CNP - 08/30/2022 12:45 PM EDT Please let Linwood know that we received her chest CT results. Everything is stable, no concerning changes. It does show a possible developing cyst on her spleen and recommends an ultrasound of her spleen tolook a little closer. Please assist her to schedule this appointment. Pratibha King APRN.CNP documented in this encounterSelect [facility]11-02-2022 History of Present illness Narrative* Jes Galaviz RT(R) - 08/29/2022 10:00 AM EDT Radiology Service Progress Note PATIENT NAME: Lisa Lucero DATE OF SERVICE: August 29, 2022 TIME: 3:39 PM PATIENT IDENTITY VERIFICATION COMPLETED USING TWO (2) IDENTIFIERS: Name and Date of confirmedby patient verbally. FALL SCREENING: Has the patient had 2 falls in the last year or 1 fall with injury or currently using an Ambulatory Assistive Device (Walker, Cane, Wheelchair, Crutches, etc.)? No PATIENT GENDER DATA: Female. status: : No status: NO. PATIENT RELEVANT IMPLANT DATA REVIEWED: Not Applicable RADIOLOGY DEPARTMENT: CT; Exam(s) Completed: Chest PERIPHERAL IV DATA: Not applicable SIGNED BY: RT Flower(R) August 29, 2022 3:39 PM documented in this encounterSelect [facility]10-07-2022 Miscellaneous Notes* Telephone Encounter - Betina Gallardo Ma - 08/03/2022 9:38 AM EDT Office faxed for medicare requirement yearly most recent OV note from 08/01/22 to [facility]. F#: [phone]. Betina Gallardo Ma documented in this encounterSelect [facility]10-05-2022 History of Present illness Narrative* Phuc Martines, DO - 08/01/2022 11:51 AM EDT CC: Lisa Lucero is a 66 year old female who presents to the office for follow up HPI: COPD, feels it is slowly stabilizing/improving compared to how she was feeling 6 months ago. Has had recent ECHO in the [address] chest was >15 months ago and is seeing [employer] and using her oxygen, will be needing to meet Dr. Gonzalez upcoming. Also has a nocturnal oximetry test to complete. Using oxygen at 3.5 liters through day and night time while sleeping. When is physically active with walking or cleaning, has to increase oxygen to 5 liters flow. Pulse ox today 88-89% inoffice. HTN,recently well controlled, no further dizziness. No chest pain/pressure. Has chronic dyspnea. Nonew edema or SINHA's or syncope symptoms. IFG, dyslipidemia, knows needs to work on weight loss efforts, is currently diet controlled Hemoglobin A1C Date Value Ref Range Status 07/30/2022 5.5 4.3 - 5.6 % Final Comment: [place] [employer] guidelines indicate that patients with HgbA1c in the range 5.7-6.4% are at increased risk for development of diabetes, and intervention by lifestyle modification may be beneficial. HgbA1c greater or equal to 6.5% is considered diagnostic of diabetes. 01/26/2022 6.1 (H) 4.3 - 5.6 % Final Comment: [employer] guidelines indicate that patients with HgbA1c in the range 5.7-6.4% are at increased risk for development of diabetes, and intervention by lifestyle modification may be beneficial. HgbA1c greater or equal to 6.5% is considered diagnostic of diabetes. 04/28/2021 5.6 4.3 - 5.6 % Final Comment: [employer] guidelines indicate that patients with HgbA1c in the range 5.7-6.4% are at increased risk for development of diabetes, and intervention by lifestyle modification may be beneficial. HgbA1c greater or equal to 6.5% is considered diagnostic of diabetes. 05/30/2020 5.6 4.3 - 5.6 % Final Comment: [employer] guidelines indicate that patients with HgbA1c in the range 5.7-6.4% are at increased risk for development of diabetes, and intervention by lifestyle modification may be beneficial. HgbA1c greater or equal to 6.5% is considered diagnostic of diabetes. 05/15/2019 5.7 (H) 4.3 - 5.6 % Final Comment: [employer] guidelines indicate that patients with HgbA1c in the range 5.7-6.4% are at increased risk for development of diabetes, and intervention by lifestyle modification may be beneficial. HgbA1c greater or equal to 6.5% is considered diagnostic of diabetes. Cholesterol, Total Date Value Ref Range Status 07/30/2022 244 (H) <200 mg/dL Final Comment: <200 mg/dL, Desirable 200-239 mg/dL, Borderline high >239 mg/dL, High HDL Cholesterol Date Value Ref Range Status 07/30/2022 83 >39 mg/dL Final Comment: 40-59 mg/dL, Acceptable >59 mg/dL, High: Negative risk factor for coronary heart disease <40 mg/dL, Low: Positive risk factor for coronary heart disease LDL Cholesterol Date Value Ref Range Status 07/30/2022 142 (H) <100 mg/dL Final Comment: <100 mg/dL, Optimal 100-129 mg/dL, Near optimal/above optimal 130-159 mg/dL, Borderline high 160-189 mg/dL, High >189 mg/dL, Very high Secondary prevention optimal LDL Cholesterol levels are recommended to be < 70 mg/dL Triglyceride Date Value Ref Range Status 07/30/2022 96 <150 mg/dL Final Comment: <150 mg/dL, Normal 150-199 mg/dL, Borderline high 200-499 mg/dL, High >499 mg/dL, Very high Has some fatigue symptoms. Just had recent labs obtained, vitamin D levels and thyroid levels and blood count are stable. Vitamin B12 is low normal around 500 Needs to schedule mammogram PAST MEDICAL HISTORY Diagnosis Date COPD (chronic obstructive pulmonary disease) (HCC) 02/03/2010 Coronary artery disease No NE, CHF. No heart cath. Diverticulosis of colon (without mention of hemorrhage) Essential hypertension, benign Fibrocystic breast Former smoker Internal hemorrhoids without mention of complication Leiomyoma of uterus, unspecified Obstructive sleep apnea Mild. Not prescribed CPAP, only 2L nasal O2. PAST SURGICAL HISTORY Procedure Laterality Date BREAST LUMPECTOMY HX Right 1998 COLONOSCOPY FLX DX W/COLLJ SPEC WHEN PFRMD 08/27/08 repeat due 2017 COLONOSCOPY FLX DX W/COLLJ SPEC WHEN PFRMD 09/10/2018 Colonoscopy - due 2027 INGUINAL HERNIA REPAIR HX 1976 bilateral PAST SURGICAL HISTORY OF hemangioma left cheek REMOVAL OF IMPACTED TOOTH - COMPLETELY BONY WISDOM TEETH Current Outpatient Medications Medication Sig nystatin (NYSTOP) powder Apply 1 application to affected area four times daily. albuterol HFA (PROVENTIL HFA, VENTOLIN HFA) 90 mcg/actuation inhaler Inhale 2 Puffs as instructed every 6 hours as needed for wheezing/shortness of breath. ttlgmkflvfe-svmlkdtyl-tqrpelld (TRELEGY ELLIPTA) 100-62.5-25 mcg inhalation powder USE 1 INHALATIONDAILY INSTRUCTED ipratropium-albuterol (DUONEB) 0.5 mg-3 mg(2.5 mg base)/3 mL nebu Inhale 3 mL as instructed four times daily. Inhale via nebulizer over 5-15 minutes. (Patient taking differently: Inhale 3 mL as instructed as needed. Inhale via nebulizer over 5-15 minutes.) COMPOUNDED PRESCRIPTION Please dispense nebulizer and supply kit, including tubing, mouth piece, and hose. Assoc diagnosis: J44.9. Dispense: 1 each, Refills: 99. ASCORBIC ACID/BIOFLAVONOIDS (SIVAN C ORAL) Take 1 capsule by mouth once daily. COMPOUNDED PRESCRIPTION 3.5L of O2 at night and 6L with exertion. multivitamin tablet Take 1 tablet by mouth once daily. amLODIPine (NORVASC) 10 mg tablet Take 1 tablet by mouth once daily. triamterene-hydroCHLOROthiazide (DYAZIDE) 37.5-25 mg per capsule Take 1 capsule by mouth once daily. Current Facility-Administered Medications Medication Dose Route Frequency perflutren lipid microspheres 1.3 mL in NaCl (PF) 0.9% 10 mL injection (DEFINITY) INTRAVENOUS DIRECTED PRN sodium chloride 0.9 % (flush) 10 mL (BD POSIFLUSH) 10 mL INTRAVENOUS DIRECTED PRN ALLERGIES Allergen Reactions Aleve [Naproxen] Hives Hives, edema of hands within 1 hour of use Social History Tobacco Use Smoking status: Former Packs/day: 1.00 Years: 38.00 Pack years: 38.00 Types: Cigarettes Start date: 1971 Quit date: 12/20/2008 Years since quittin.6 Smokeless tobacco: Never Tobacco comments: Parents smoked in childhood home. Spouse smokes, not in home. Vaping Use Vaping Use: Never used Substance Use Topics Alcohol use: Yes Alcohol/week: 15.0 - 30.0 standard drinks Types: 6 - 12 Cans of Beer (12oz) per week Drug use: No ROS: See HPI. PE: BP 136/60 Pulse 88 Temp (Src) 98.4 (Left Tympanic) Resp 24 Wt 259 lb (117.5kg) SpO2 88% Gen: A&OX3, NAD, non-toxic appearing HEENT: PERRLA, wearing glasses, EOMs intact b/l, nares without drainage, pharynx without erythema, exudate, lesions, or drainage. Uvula midline. Neck: No LAD, no thyromegaly, no meningismus. CV: RRR, no murmur, normal s1s2 Lungs: no rhonchi or rales or wheezes, mildly diminished bases and prolonged expiratory phase diffusely Oxygen per nasal canula in place in office Skin: No rashes, lesions, or wounds on exposed skin. Trace symmetric edema, varicose veins present Abd: soft, overweight/obese ASSESSMENT/PLAN: 1. Chronic obstructive pulmonary disease, unspecified COPD type (HCC) - ICD9: 496, ICD10: J44.9 (primary diagnosis) CT chest and nocturnal oximetry testing as ordered, follow up with jackscrew man as well. Needs to continue oxygen at 3.5 Liters day and night and up to 5 liters with activity - OXIMETRY - NOCTURNAL - CT CHEST WO IVCON 2. Essential hypertension - ICD9: 401.9, ICD10: I10 - suboptimal control - Increase amlodipine (Norvasc) - Encouraged dietary sodium restriction/DASH diet - Recommended regular aerobic exercise. - Recommend home blood pressure monitoring, to bring results in on next visit - Discussed need and benefit for weight loss. - Goal of BP <130/80 - TRIAMTERENE 37.5 MG-HYDROCHLOROTHIAZIDE 25 MG CAPSULE 3. Need for influenza vaccination - ICD9: V04.81, ICD10: Z23 - INFLUENZA VACCINE QUADRIVALENT 6 MO - 64 YRS IM 4. Impaired fasting glucose - ICD9: 790.21, ICD10: R73.01 stable 5. Dyslipidemia - ICD9: 272.4, ICD10: E78.5 - suboptimal control - Encouraged following a low fat, low cholesterol diet. - Discussed the benefits of regular aerobic exercise and weight loss. 6. Chronic respiratory failure with hypoxia (HCC) - ICD9: 518.83, 799.02, ICD10: J96.11 See above - OXIMETRY - NOCTURNAL - CT CHEST WO IVCON 7. Stage 3 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) - ICD9: 496, ICD10: J44.9 See above - OXIMETRY - NOCTURNAL - CT CHEST WO IVCON 8. Oxygen dependent - ICD9: V46.2, ICD10: Z99.81 See above - OXIMETRY - NOCTURNAL - CT CHEST WO IVCON Phuc Martines DO Return if no improvement. Follow up with Phuc Martines DO. To ER if develops chest pain, shortness of breath Discussed risks, benefits, alternatives, and potential side effects of medications. Patient/Guardian expressed understanding and agreed with the plan. See patient instructions. Phuc Martines DO [address] [place] [address] documented in this encounterSelect [facility] Instructions* Patient Instructions* Phuc Martines DO - 08/01/2022 11:00 AM EDT Vitamin B12 1,000 mcg a day in the morning supplement documented in this encounterSelect [facility]-08-2022 Miscellaneous Notes* Telephone Encounter - Isi Osorio LPN - 07/05/2022 8:45 AM EDT Order faxed. Isi Osorio LPN * Telephone Encounter - Isi Osorio LPN - 07/04/2022 2:21 PM EDT [facility] is requesting order for POC that goes to 6L as discussed at [facility] on 06/22. Patient has transitioned to Medicare as of 06/28. Isi Osorio LPN documented in this encounterSelect [facility]06-02-2022 Miscellaneous Notes* Telephone Encounter - Isi Osorio LPN - 03/29/2022 3:00 PM EDT [facility] called, they did receive order and it is in the que to schedule. Isi Osorio LPN documented in this encounterSelect Medical [facility]05-20-2022 Procedure note* Janki Ayala RRT - 03/16/2022 9:40 AM EDT Associated Order(s): OXIMETRY WITH AMBULATION Images from the original note were not included. RESPIRATORY THERAPY OXIMETRY WITH AMBULATION Oximetry with Ambulation Test for This Encounter O2 Device O2 Adapter NC O2 Flow SpO2% HR Activity Ft Walked (ft) Time (min) Avg Speed (MPH) R/A 94 93 Resting R/A 82 108 Walking, usual pace 50 0.5 1.14 NC 2 94 98 Resting NC 2 86 110 Walking, usual pace 200 1.2 1.89 NC 3 94 100 Resting NC 3 87 113 Walking, usual pace 200 1.2 1.89 NC 4 95 98 Resting NC 4 87 116 Walking, usual pace 230 1.5 1.74 NC 5 94 100 Resting NC 5 87 120 Walking, usual pace 250 2 1.42 NC 6 98 109 Resting NC 6 96 113 Walking, usual pace 440 3 1.67 General Information Pulse Oximetry Site Total Time Spent O2 Supply Carrier Walking Assistance/Device Forehead 40 3 Wheel Walker patient's own portable concentrator up to 5L NAME: Janki Ayala RRT PATIENT NAME: Lisa Lucero DATE: March 16, 2022 TIME: 9:40 AM Comment: documented in this encounterSelect [facility]05-20-2022 History of Present illness Narrative* Janki Ayala RRT - 03/16/2022 9:33 AM EDT PULM FUNCTION SMARTBLOCK: Provider: Hodan Christine PA-C Assisting Tech: Janki Ayala RRT Spirometry: 1 Oximetry - Ambulation: 1 System: [id number] documented in this encounterSelect Medical [facility]05-20-2022 History of Present illness Narrative* Hodan Christine PA-C - 03/16/2022 9:24 AM EDT [facility] [place], 03/16/2022: Name: Lisa Lucero : 1955 The patient is here today by herself. HPI: Lisa Lucero is a 66 yo female with pmh significant for CAD, diverticulosis, HTN, ROXY (mild),and COPD. Former smoker, quit 2008. 38 pack years. The patient is here for follow up of COPD. Since the last Pulmonary Clinic visit with me on 02/09/2022, the patient has not required ED care for exacerbation. There has been no hospital admission for exacerbation. Claims to be consistently compliant with prescribed maintenance Rx Trelegy ellipta daily. Uses Duonebs only if feeling really bad. Rarely uses it. Daily cough. No change in sputum. No hemoptysis. No wheezing. No dyspnea at rest. Exertional dyspnea progressively worse over the last few months. Reports she is not exercising as much as she did prior to the pandemic and has gained weight. At last office visit, patient was high risk for ROXY based on STOP bang questionnaire and declined PSG. I have her scheduled for an echocardiogram as I am suspicious for pulmonary HTN. If this is true, then I will insist on a PSG. Currently wearing 2 LPM supplemental oxygen continuously. If on pulse dosed, wears 4 LPM. TATE: Bruce PMH: Updated with patient today. FAMH: Updated with patient today. SOCH: Updated with patient today. IMMUNIZATIONS Prevnar - 09/28/2016 Pneumovax 23 - 05/06/2017, 07/07/2008 Influenza - 08/15/2021 COVID-19 - 08/15/2021, 01/03/2021, 12/15/2020 ROS: General: Generally feels short of breath. Appetite good. Eyes, Ears, nose, throat: No post nasal drip, rhinorrhea, purulent nasal discharge. Cardiac: No angina, edema, orthopnea. GI: No heartburn, dysphagia, diarrhea. Uro/ANSWERER: No dysuria, hesitancy, nocturia. Musculoskeletal: No pain. Neuro: No headache, focal weakness, tremor. Skin: No rash. Otherwise negative. Allergies were reviewed and updated, and medications were reconciled with the patient. PHYSICAL EXAMINATION: BP 138/86 Pulse 93 Resp 12 Wt 114.8 kg (253 lb) SpO2 96% BMI 42.43 kg/m O2: 4 L pulse dosed Gen: No acute distress. Cooperative with examination. ENT: Oral hygeine and dentition good. Pharynx clear. No halitosis. No sign of oral thrush. Resp: No stridor, accessory respiratory muscle use, supra-sternal or intercostal retractions. No wheezes, crackles. CV: Regular rythm. Heart tones normal. Radial pulses normal. Abd: Non distended. MSK: No kyphoscoliosis. Ext: Warm and well perfused. No clubbing, cyanosis, edema. Skin: No rash, ecchymoses. Neuro: Mental status normal. Affect normal. No tremor. DATA REVIEW: DATE: 03/16/2022 03/31/2020 12/27/2016 04/03/18 FVC 2.36, 76% 2.22, 76% 2.40, 70% 2.34, 67% FEV1 0.77, 31% 0.82, 35% 1.01, 38% 0.90, 34% FEV1/FVC 0.32 0.37 0.42 0.39 Oximetry, 03/16/2022 Oximetry with Ambulation Test for This Encounter O2 Device O2 Adapter NC O2 Flow SpO2% HR Activity Ft Walked (ft) Time (min) Avg Speed (MPH) R/A 94 93 Resting R/A 82 108 Walking, usual pace 50 0.5 1.14 NC 2 94 98 Resting NC 2 86 110 Walking, usual pace 200 1.2 1.89 NC 3 94 100 Resting NC 3 87 113 Walking, usual pace 200 1.2 1.89 NC 4 95 98 Resting NC 4 87 116 Walking, usual pace 230 1.5 1.74 NC 5 94 100 Resting NC 5 87 120 Walking, usual pace 250 2 1.42 NC 6 98 109 Resting NC 6 96 113 Walking, usual pace 440 3 1.67 ASSESSMENT/PLAN: 1. Chronic obstructive pulmonary disease, unspecified COPD type (HCC) - ICD9: 496, ICD10: J44.9 (primary diagnosis) Alpha-1 antitrypsin normal. Symptomatically with increased exertional dyspnea. FEV1 today with decline over the past 2 years. Continue triple therapy with Trelegy ellipta 1 inhalation daily. Rinse mouth after each use to helpprevent oral thrush. Up to date on annual influenza, pneumococcal and Covid 19 vaccines. Will discuss pulmonary rehab at next office visit. Patient's spouse is dealing with medical issues at this time and therefore not great timing. 2. Chronic hypoxemic respiratory failure (HCC) - ICD9: 518.83, 799.02, ICD10: J96.11 Based on oximetry today, patient is requiring 6 LPM with exertion. Discussed with her that her pulse dosed portable machine is not meeting her needs. Will check nocturnal oximetry on her current 3 L. Further recommendations to follow. 3. Dyspnea and respiratory abnormalities - ICD9: 786.09, ICD10: R06.00, R06.89 Patient is scheduled for echocardiogram. Further recommendations to follow. 4. Former smoker - ICD9: V15.82, ICD10: Z87.891 I addressed the questions of the patient, and she expressed understanding and acceptance of my answers. Hodan Christine PA-C documented in this encounterSelect [facility]05-20-2022 Nurse Note* Isi Osorio LPN - 03/16/2022 9:06 AM EDT Intake information documented in the prior visit with Janki Ayala RRT today. documented in this encounterSelect Medical [facility]05-11-2022 Miscellaneous Notes* Telephone Encounter - Karla Jacob LPN - 03/07/2022 11:36 AM EDT Patient phones requesting refills as follows: Pending Prescriptions Disp Refills AMLODIPINE 5 MG TABLET 90 tablet 1 Sig: Take 1 tablet by mouth once daily. LALY: No ABRAHAM-10/31/21 Labs-01/26/22 NOV-05/01/22 med filled 11/07/21 Please review and advise. Karla Jacob LPN documented in this encounterSelect [facility]04-15-2022 History of Present illness Narrative* Hodan Christine PA-C - 02/09/2022 1:00 PM EDT [facility] [place], 02/09/2022: Name: Lisa Lucero : 1955 The patient is here today by herself. HPI: Lisa Lucero is a 66 yo female with pmh significant for CAD, diverticulosis, HTN, ROXY (mild),and COPD. Former smoker, quit 2009. 38 pack years. The patient is here for follow up of COPD. Since the last Pulmonary Clinic visit 10/01/2019, the patient has not required ED care for exacerbation. There has been no hospital admission for exacerbation. Claims to be consistently compliant with prescribed maintenance Rx Trelegy ellipta 1 inhalation daily. Using nebulizer more frequently. Minimal cough. No hemoptysis. Variable wheezing. Has noticed that she is now getting short of breath at rest. Exertional dyspnea is progressively worse. States since the pandemic she has not been exercising or working and has gained weight. Has resumed stationary bike at home within the last few weeks. Reports palpitations at times as well as dizziness. Chest heaviness at times. Minimal lower extremity edema. Currently wearing 2 LPM supplemental oxygen continuously. If on pulse dosed, wears 4 LPM. DME: Bruce PMH: Updated with patient today. FAMH: Updated with patient today. SOCH: Updated with patient today. IMMUNIZATIONS Prevnar 13 - 09/28/2016 Pneumovax 23 - 05/06/2017, 07/07/2008 Influenza - 08/15/2021 COVID-19 - 08/15/2021, 01/03/2021, 12/15/2020 ROS: See HPI. Allergies were reviewed and updated, and medications were reconciled with the patient. PHYSICAL EXAMINATION: BP 140/88 Pulse 102 Resp 20 Wt 114.3 kg (252 lb) SpO2 (!) 86% BMI 42.26 kg/m O2: 4 L pulse dosed Gen: No acute distress. Cooperative with examination. ENT: Oral hygeine and dentition good. Pharynx clear. No halitosis. No sign oral thrush. Resp: No stridor, accessory respiratory muscle use, supra-sternal or intercostal retractions. No wheezes, crackles. CV: Regular rythm. Heart tones normal. Radial pulses normal. Abd: Non distended. MSK: No kyphoscoliosis. Ext: Warm and well perfused. No clubbing. Cyanosis, edema. Skin: No rash, ecchymoses. Neuro: Mental status normal. Affect normal. No tremor. DATA REVIEW: DATE: 12/27/2016 04/03/18 07/22/18 04/24/19 FVC 2.40, 70% 2.34, 67% 2.25, 65% 2.22, 67% FEV1 1.01, 38% 0.90, 34% 0.85, 32% 0.81, 32% FEV1/FVC 0.42 0.39 0.38 0.36 STOP BANG Questionnaire 1. Snoring Do you snore loudly (louder than talking or loud enough to be heard through closed doors)? NO 2. Tired Do you often feel tired, fatigued, or sleepy during daytime? YES 3. Observed Has anyone observed you stop breathing during your sleep? NO 4. Blood Pressure Do you have or are you being treated for high blood pressure? YES 5. BMI BMI more than 35 kg/m2? YES 6. Age Age over 50 yr old? YES 7. Neck circumference Neck circumference greater than 40 cm? YES 8. Gender Gender male? NO * Neck circumference is measured by staff High risk of ROXY: answering yes to three or more items Low risk of ROXY: answering yes to less than three items ASSESSMENT/PLAN: 1. Chronic obstructive pulmonary disease, unspecified COPD type (HCC) - ICD9: 496, ICD10: J44.9 Symptomatically with increased dyspnea over the last few months. Reviewed last PFT with patient. Will obtain current PFT and oximetry with ambulation. Patient with SpO2 < 88% when she came into the office. Advised her to adjust her supplemental oxygen to maintain > 90%. Continue Trelegy ellipta 1 inhalation daily. Rinse mouth after each use to help prevent oral thrush. Albuterol HFA inhaler, 2 inhalations 10 15 minutes prior to activities associated with shortness ofbreath, and as needed for rescue relief of shortness of breath or wheezing, up to 4 times daily. Up to date on annual influenza, pneumococcal and Covid 19 vaccines. - SPIROMETRY BASELINE ONLY - OXIMETRY WITH AMBULATION - ECHO - PERFLUTREN LIPID MICROSPHERES 1.1 MG/ML INJECTION IN NS 10 ML - SODIUM CHLORIDE 0.9 % (FLUSH) INJECTION SYRINGE 2. Dyspnea and respiratory abnormalities See #1. Obtain current echo. Last echo 2016. I suspect pulmonary HTN. 3. High index of suspicion for ROXY. Previous PSG in 2012 revealed mild ROXY. However, patient did not obtain REM sleep. Will obtain a split night study once we complete the echo and PFTs. Patient is hesitant to have another sleep study done. I addressed the questions of the patient, and she expressed understanding and acceptance of my answers. Hodan Christine PA-C documented in this encounterSelect [facility]04-05-[facility]22 History of Present illness Narrative* Phuc Martines, - 01/30/2022 12:31 PM EDT CC: Lisa Lucero is a 66 year old female who presents to the office for follow up HPI: COPD, using oxygen, has had recent repeat CT chest in April 2021, hasn't seen Pulm recently but is willing to make an appt for follow up, last PFTs and spirometry in 2019. Hasn't had any recent pulmonary infections, hasn't had to use nebulizer recently. HTN, has been monitoring at home recently , taking medication as prescribed. No chest pain or palpitations, no leg edema. Is now taking diuretic in AM and amlodipine in the PM,feels she is having less episodes of being lightheaded/dizzy as she was prior. BLOOD PRESSURE seemsto be stable around 110-130s/60-80s. Pulse rate up to 90s at times, mostly when she tries to ride he r bike for exercise- this causes her dyspnea IFG, Dyslipidemia, admits that she needs to work on weight loss since weight gain contributes to her dyspnea PAST MEDICAL HISTORY Diagnosis Date COPD (chronic obstructive pulmonary disease) (HCC) 02/03/2010 Coronary artery disease No NE, CHF. No heart cath. Diverticulosis of colon (without mention of hemorrhage) Essential hypertension, benign Fibrocystic breast Former smoker Internal hemorrhoids without mention of complication Leiomyoma of uterus, unspecified Obstructive sleep apnea Mild. Not prescribed CPAP, only 2L nasal O2. PAST SURGICAL HISTORY Procedure Laterality Date BREAST LUMPECTOMY HX Right 1997 COLONOSCOPY FLX DX W/COLLJ SPEC WHEN PFRMD 08/27/08 repeat due 2017 COLONOSCOPY FLX DX W/COLLJ SPEC WHEN PFRMD 09/10/2018 Colonoscopy - due 2027 INGUINAL HERNIA REPAIR HX 1976 bilateral PAST SURGICAL HISTORY OF hemangioma left cheek REMOVAL OF IMPACTED TOOTH - COMPLETELY BONY WISDOM TEETH Current Outpatient Medications Medication Sig xpignggpjix-ocyaruqta-unoyzghn (TRELEGY ELLIPTA) 100-62.5-25 mcg inhalation powder USE 1 INHALATIONDAILY INSTRUCTED amLODIPine (NORVASC) 5 mg tablet Take 1 tablet by mouth once daily. triamterene-hydroCHLOROthiazide 37.5-25 mg per capsule Take 1 capsule by mouth once daily. ProAir RespiClick 90 mcg/actuation breath activated (albuterol sulfate) Inhale 2 Puffs as instructed every 4 hours as needed for Wheezing/Shortness of Breath. nystatin (NYSTOP) powder Apply 1 application to affected area four times daily. ipratropium-albuterol (DUONEB) 0.5 mg-3 mg(2.5 mg base)/3 mL nebu Inhale 3 mL as instructed four times daily. Inhale via nebulizer over 5-15 minutes. (Patient taking differently: Inhale 3 mL as instructed as needed. Inhale via nebulizer over 5-15 minutes. ) COMPOUNDED PRESCRIPTION Please dispense nebulizer and supply kit, including tubing, mouth piece, and hose. Assoc diagnosis: J44.9. Dispense: 1 each, Refills: 99. ASCORBIC ACID/BIOFLAVONOIDS (SIVAN C ORAL) Take 1 capsule by mouth once daily. COMPOUNDED PRESCRIPTION 2L of O2 at night and with exertion. multivitamin tablet Take 1 tablet by mouth once daily. No current facility-administered medications for this visit. ALLERGIES Allergen Reactions Aleve [Naproxen] Hives Hives, edema of hands within 1 hour of use Social History Tobacco Use Smoking status: Former Smoker Packs/day: 1.00 Years: 38.00 Pack years: 38.00 Types: Cigarettes Start date: 1971 Quit date: 12/20/2008 Years since quittin.1 Smokeless tobacco: Never Used Tobacco comment: Parents smoked in childhood home. Spouse smokes, not in home. Vaping Use Vaping Use: Never used Substance Use Topics Alcohol use: Yes Alcohol/week: 15.0 - 30.0 standard drinks Types: 6 - 12 Cans of Beer (12oz) per week Drug use: No ROS: See HPI PE: BP 150/74 Pulse 104 Temp (Src) 97.6 (Right Tympanic) Resp 20 Wt 254 lb (115.2kg) SpO2 88% Gen: A&OX3, NAD, non-toxic appearing HEENT: PERRLA, wearing glasses, EOMs intact b/l, nares without drainage, pharynx without erythema, exudate, lesions, or drainage. Uvula midline. Neck: No LAD, no thyromegaly, no meningismus. CV: RRR, no murmur, normal s1s2 Lungs: no rhonchi or rales or wheezes, mildly diminished bases and prolonged expiratory phase diffusely Skin: No rashes, lesions, or wounds on exposed skin. Trace symmetric edema, varicose veins present Abd: soft, overweight/obese ASSESSMENT/PLAN: 1. Chronic obstructive pulmonary disease, unspecified COPD type (HCC) - ICD9: 496, ICD10: J44.9 (primary diagnosis) - f/u with Pulm, likely due for repeat PFTs and medication monitoring appt 2. Essential hypertension - ICD9: 401.9, ICD10: I10 - good control - Continue current medication(s) - Encouraged dietary sodium restriction/DASH diet - Recommended regular aerobic exercise. - Recommend home blood pressure monitoring, to bring results in on next visit - Discussed need and benefit for weight loss. - Goal of BP <130/80 3. Impaired fasting glucose - ICD9: 790.21, ICD10: R73.01 - stable 4. Dyslipidemia - ICD9: 272.4, ICD10: E78.5 - suboptimal control - Encouraged following a low fat, low cholesterol diet. - Discussed the benefits of regular aerobic exercise and weight loss. 5. Vitamin D deficiency - ICD9: 268.9, ICD10: E55.9 - continue supplement 6. Lightheaded - ICD9: 780.4, ICD10: R42 - improved with medication adjustments for her HTN, likely also related to being on a diuretic Phuc Martines DO Return if no improvement. Follow up with Phuc Martines DO. To ER if develops chest pain, shortness of breath Discussed risks, benefits, alternatives, and potential side effects of medications. Patient/Guardian expressed understanding and agreed with the plan. See patient instructions. Phuc Martines DO [address] [place] [address] documented in this encounterSelect [facility]-16-[facility] History of Present illness Narrative* Vonnie Smith Tech (Rt) - 01/10/2021 11:10 AM EDT Radiology Service Progress Note PATIENT NAME: Lisa Lucero DATE OF SERVICE: January 10, 2021 TIME: 11:09 AM PATIENT IDENTITY VERIFICATION COMPLETED USING TWO (2) IDENTIFIERS: Name and Date of confirmedby patient verbally. FALL SCREENING: Has the patient had 2 falls in the last year or 1 fall with injury or currently using an Ambulatory Assistive Device (Walker, Cane, Wheelchair, Crutches, etc.)? No PATIENT GENDER DATA: Female. status: : No status: NO. PATIENT RELEVANT IMPLANT DATA REVIEWED: Yes RADIOLOGY DEPARTMENT: General X-ray: Exam(s) Completed: Lower Extremity X- Ray(s): Foot, Right and Wt. Bearing: PERIPHERAL IV DATA: Not applicable SIGNED BY: RT Ban January 10, 2021 11:09 AM documented in this encounterSelect Medical [facility]ty [facility]07-23-2019 History of Past illness Narrative* Problem Noted Date Resolved Date Routine physical examination 05/19/2019 Screening for colon cancer 08/27/201810/13 Overview: Added automatically from request for surgery [id number] Acute bronchitis with chroni c obstructive pulmonary disease (COPD) 11/06/2017 10/13/2019 Well adult exam 11/09/2016 10/13/2019 COPD (chronic obstructive pulmonary disease) 06/201010/13/2019 Overview: titration 01/07/2013 RESPIRATORY DATA: This study was performed on room air. Snoring was noted. There were 26 respiratory events consisting of 0 apneas and 26 hypopneas. The apnea-hypopnea index (AHI) was 9.8 and the central-apnea index (PEDRO) was 0.0. The mean oxygen saturation during the study was 89.0%, with a minimum oxygen saturation of 86.0%. The patient spent 80.3% of sleep time with an oxygen saturation below 90%. The maximum end-tidal CO2 was 58 mmHg. The patient spent 96.5% of sleep time with an EtCO2 above 45 mmHg and 73.2% above 50 mmHg. Joey-Darby/Periodic Breathing was not present. PAIN FLANK 08/13/2008 10/13/2019 OBESITY 05/04/2006 10/13/2019 PLANTAR FASCIITIS 05/04/2006 08/19/2006 Essential hypertension, benign 0 07/07/2008 Tobacco use disorder 10/05/2011 documented as of this encounter (statuses as of 01/30/2022) [facility] History of Past illness Narrative* Problem Noted Date Resolved Date Routine physical examination 05/19/2019 Screening for colon cancer 08/27/201810/13 Overview: Added automatically from request for surgery [id number] Acute bronchitis with chroni c obstructive pulmonary disease (COPD) 11/06/2017 10/13/2019 Well adult exam 11/09/2016 10/13/2019 COPD (chronic obstructive pulmonary disease) 06/201010/13/2019 Overview: titration 01/07/2013 RESPIRATORY DATA: This study was performed on room air. Snoring was noted. There were 26 respiratory events consisting of 0 apneas and 26 hypopneas. The apnea-hypopnea index (AHI) was 9.8 and the central-apnea index (PEDRO) was 0.0. The mean oxygen saturation during the study was 89.0%, with a minimum oxygen saturation of 86.0%. The patient spent 80.3% of sleep time with an oxygen saturation below 90%. The maximum end-tidal CO2 was 58 mmHg. The patient spent 96.5% of sleep time with an EtCO2 above 45 mmHg and 73.2% above 50 mmHg. Joey-Darby/Periodic Breathing was not present. PAIN FLANK 08/13/2008 10/13/2019 OBESITY 05/04/2006 10/13/2019 PLANTAR FASCIITIS 05/04/2006 08/19/2006 Essential hypertension, benign 0 07/07/2008 Tobacco use disorder 10/05/2011 documented as of this encounter (statuses as of 02/09/2022) [facility] History of Past illness Narrative* Problem Noted Date Resolved Date Routine physical examination 05/19/2019 Screening for colon cancer 08/27/201810/13 Overview: Added automatically from request for surgery [id number] Acute bronchitis with chroni c obstructive pulmonary disease (COPD) 11/06/2017 10/13/2019 Well adult exam 11/09/2016 10/13/2019 COPD (chronic obstructive pulmonary disease) 06/201010/13/2019 Overview: titration 01/07/2013 RESPIRATORY DATA: This study was performed on room air. Snoring was noted. There were 26 respiratory events consisting of 0 apneas and 26 hypopneas. The apnea-hypopnea index (AHI) was 9.8 and the central-apnea index (PEDRO) was 0.0. The mean oxygen saturation during the study was 89.0%, with a minimum oxygen saturation of 86.0%. The patient spent 80.3% of sleep time with an oxygen saturation below 90%. The maximum end-tidal CO2 was 58 mmHg. The patient spent 96.5% of sleep time with an EtCO2 above 45 mmHg and 73.2% above 50 mmHg. Joey-Darby/Periodic Breathing was not present. PAIN FLANK 08/13/2008 10/13/2019 OBESITY 05/04/2006 10/13/2019 PLANTAR FASCIITIS 05/04/2006 08/19/2006 Essential hypertension, benign 0 07/07/2008 Tobacco use disorder 10/05/2011 documented as of this encounter (statuses as of 03/07/2022) [facility] History of Past illness Narrative* Problem Noted Date Resolved Date Routine physical examination 05/19/2019 Screening for colon cancer 08/27/201810/13 Overview: Added automatically from request for surgery [id number] Acute bronchitis with chroni c obstructive pulmonary disease (COPD) 11/06/2017 10/13/2019 Well adult exam 11/09/2016 10/13/2019 COPD (chronic obstructive pulmonary disease) 06/201010/13/2019 Overview: titration 01/07/2013 RESPIRATORY DATA: This study was performed on room air. Snoring was noted. There were 26 respiratory events consisting of 0 apneas and 26 hypopneas. The apnea-hypopnea index (AHI) was 9.8 and the central-apnea index (PEDRO) was 0.0. The mean oxygen saturation during the study was 89.0%, with a minimum oxygen saturation of 86.0%. The patient spent 80.3% of sleep time with an oxygen saturation below 90%. The maximum end-tidal CO2 was 58 mmHg. The patient spent 96.5% of sleep time with an EtCO2 above 45 mmHg and 73.2% above 50 mmHg. Joey-Darby/Periodic Breathing was not present. PAIN FLANK 08/13/2008 10/13/2019 OBESITY 05/04/2006 10/13/2019 PLANTAR FASCIITIS 05/04/2006 08/19/2006 Essential hypertension, benign 0 07/07/2008 Tobacco use disorder 10/05/2011 documented as of this encounter (statuses as of 03/16/2022) [facility] History of Past illness Narrative* Problem Noted Date Resolved Date Routine physical examination 05/19/2019 Screening for colon cancer 08/27/201810/13 Overview: Added automatically from request for surgery [id number] Acute bronchitis with chroni c obstructive pulmonary disease (COPD) 11/06/2017 10/13/2019 Well adult exam 11/09/2016 10/13/2019 COPD (chronic obstructive pulmonary disease) 06/201010/13/2019 Overview: titration 01/07/2013 RESPIRATORY DATA: This study was performed on room air. Snoring was noted. There were 26 respiratory events consisting of 0 apneas and 26 hypopneas. The apnea-hypopnea index (AHI) was 9.8 and the central-apnea index (PEDRO) was 0.0. The mean oxygen saturation during the study was 89.0%, with a minimum oxygen saturation of 86.0%. The patient spent 80.3% of sleep time with an oxygen saturation below 90%. The maximum end-tidal CO2 was 58 mmHg. The patient spent 96.5% of sleep time with an EtCO2 above 45 mmHg and 73.2% above 50 mmHg. Joey-Darby/Periodic Breathing was not present. PAIN FLANK 08/13/2008 10/13/2019 OBESITY 05/04/2006 10/13/2019 PLANTAR FASCIITIS 05/04/2006 08/19/2006 Essential hypertension, benign 0 07/07/2008 Tobacco use disorder 10/05/2011 documented as of this encounter (statuses as of 03/16/2022) [facility] History of Past illness Narrative* Problem Noted Date Resolved Date Routine physical examination 05/19/2019 Screening for colon cancer 08/27/201810/13 Overview: Added automatically from request for surgery [id number] Acute bronchitis with chroni c obstructive pulmonary disease (COPD) 11/06/2017 10/13/2019 Well adult exam 11/09/2016 10/13/2019 COPD (chronic obstructive pulmonary disease) 06/201010/13/2019 Overview: titration 01/07/2013 RESPIRATORY DATA: This study was performed on room air. Snoring was noted. There were 26 respiratory events consisting of 0 apneas and 26 hypopneas. The apnea-hypopnea index (AHI) was 9.8 and the central-apnea index (PEDRO) was 0.0. The mean oxygen saturation during the study was 89.0%, with a minimum oxygen saturation of 86.0%. The patient spent 80.3% of sleep time with an oxygen saturation below 90%. The maximum end-tidal CO2 was 58 mmHg. The patient spent 96.5% of sleep time with an EtCO2 above 45 mmHg and 73.2% above 50 mmHg. Joey-Darby/Periodic Breathing was not present. PAIN FLANK 08/13/2008 10/13/2019 OBESITY 05/04/2006 10/13/2019 PLANTAR FASCIITIS 05/04/2006 08/19/2006 Essential hypertension, benign 0 07/07/2008 Tobacco use disorder 10/05/2011 documented as of this encounter (statuses as of 03/29/2022) [facility] History of Past illness Narrative* Problem Noted Date Resolved Date Routine physical examination 05/19/2019 Screening for colon cancer 08/27/201810/13 Overview: Added automatically from request for surgery [id number] Acute bronchitis with chroni c obstructive pulmonary disease (COPD) 11/06/2017 10/13/2019 Well adult exam 11/09/2016 10/13/2019 COPD (chronic obstructive pulmonary disease) 06/201010/13/2019 Overview: titration 01/07/2013 RESPIRATORY DATA: This study was performed on room air. Snoring was noted. There were 26 respiratory events consisting of 0 apneas and 26 hypopneas. The apnea-hypopnea index (AHI) was 9.8 and the central-apnea index (PEDRO) was 0.0. The mean oxygen saturation during the study was 89.0%, with a minimum oxygen saturation of 86.0%. The patient spent 80.3% of sleep time with an oxygen saturation below 90%. The maximum end-tidal CO2 was 58 mmHg. The patient spent 96.5% of sleep time with an EtCO2 above 45 mmHg and 73.2% above 50 mmHg. Joey-Darby/Periodic Breathing was not present. PAIN FLANK 08/13/2008 10/13/2019 OBESITY 05/04/2006 10/13/2019 PLANTAR FASCIITIS 05/04/2006 08/19/2006 Essential hypertension, benign 0 07/07/2008 Tobacco use disorder 10/05/2011 documented as of this encounter (statuses as of 07/04/2022) [facility] History of Past illness Narrative* Problem Noted Date Resolved Date Routine physical examination 05/19/2019 Screening for colon cancer 08/27/201810/13 Overview: Added automatically from request for surgery [id number] Acute bronchitis with chroni c obstructive pulmonary disease (COPD) 11/06/2017 10/13/2019 Well adult exam 11/09/2016 10/13/2019 COPD (chronic obstructive pulmonary disease) 06/201010/13/2019 Overview: titration 01/07/2013 RESPIRATORY DATA: This study was performed on room air. Snoring was noted. There were 26 respiratory events consisting of 0 apneas and 26 hypopneas. The apnea-hypopnea index (AHI) was 9.8 and the central-apnea index (PEDRO) was 0.0. The mean oxygen saturation during the study was 89.0%, with a minimum oxygen saturation of 86.0%. The patient spent 80.3% of sleep time with an oxygen saturation below 90%. The maximum end-tidal CO2 was 58 mmHg. The patient spent 96.5% of sleep time with an EtCO2 above 45 mmHg and 73.2% above 50 mmHg. Joey-Darby/Periodic Breathing was not present. PAIN FLANK 08/13/2008 10/13/2019 OBESITY 05/04/2006 10/13/2019 PLANTAR FASCIITIS 05/04/2006 08/19/2006 Essential hypertension, benign 0 07/07/2008 Tobacco use disorder 10/05/2011 documented as of this encounter (statuses as of 07/05/2022) [facility] History of Past illness Narrative* Problem Noted Date Resolved Date Routine physical examination 05/19/2019 Screening for colon cancer 08/27/201810/13 Overview: Added automatically from request for surgery [id number] Acute bronchitis with chroni c obstructive pulmonary disease (COPD) 11/06/2017 10/13/2019 Well adult exam 11/09/2016 10/13/2019 COPD (chronic obstructive pulmonary disease) 06/201010/13/2019 Overview: titration 01/07/2013 RESPIRATORY DATA: This study was performed on room air. Snoring was noted. There were 26 respiratory events consisting of 0 apneas and 26 hypopneas. The apnea-hypopnea index (AHI) was 9.8 and the central-apnea index (PEDRO) was 0.0. The mean oxygen saturation during the study was 89.0%, with a minimum oxygen saturation of 86.0%. The patient spent 80.3% of sleep time with an oxygen saturation below 90%. The maximum end-tidal CO2 was 58 mmHg. The patient spent 96.5% of sleep time with an EtCO2 above 45 mmHg and 73.2% above 50 mmHg. Joey-Darby/Periodic Breathing was not present. PAIN FLANK 08/13/2008 10/13/2019 OBESITY 05/04/2006 10/13/2019 PLANTAR FASCIITIS 05/04/2006 08/19/2006 Essential hypertension, benign 0 07/07/2008 Tobacco use disorder 10/05/2011 documented as of this encounter (statuses as of 08/01/2022) [facility] History of Past illness Narrative* Problem Noted Date Resolved Date Routine physical examination 05/19/2019 Screening for colon cancer 08/27/201810/13 Overview: Added automatically from request for surgery [id number] Acute bronchitis with chroni c obstructive pulmonary disease (COPD) 11/06/2017 10/13/2019 Well adult exam 11/09/2016 10/13/2019 COPD (chronic obstructive pulmonary disease) 06/201010/13/2019 Overview: titration 01/07/2013 RESPIRATORY DATA: This study was performed on room air. Snoring was noted. There were 26 respiratory events consisting of 0 apneas and 26 hypopneas. The apnea-hypopnea index (AHI) was 9.8 and the central-apnea index (PEDRO) was 0.0. The mean oxygen saturation during the study was 89.0%, with a minimum oxygen saturation of 86.0%. The patient spent 80.3% of sleep time with an oxygen saturation below 90%. The maximum end-tidal CO2 was 58 mmHg. The patient spent 96.5% of sleep time with an EtCO2 above 45 mmHg and 73.2% above 50 mmHg. Joey-Darby/Periodic Breathing was not present. PAIN FLANK 08/13/2008 10/13/2019 OBESITY 05/04/2006 10/13/2019 PLANTAR FASCIITIS 05/04/2006 08/19/2006 Essential hypertension, benign 0 07/07/2008 Tobacco use disorder 10/05/2011 documented as of this encounter (statuses as of 08/03/2022) [facility] History of Past illness Narrative* Problem Noted Date Resolved Date Routine physical examination 05/19/2019 Screening for colon cancer 08/27/201810/13 Overview: Added automatically from request for surgery [id number] Acute bronchitis with chroni c obstructive pulmonary disease (COPD) 11/06/2017 10/13/2019 Well adult exam 11/09/2016 10/13/2019 COPD (chronic obstructive pulmonary disease) 06/201010/13/2019 Overview: titration 01/07/2013 RESPIRATORY DATA: This study was performed on room air. Snoring was noted. There were 26 respiratory events consisting of 0 apneas and 26 hypopneas. The apnea-hypopnea index (AHI) was 9.8 and the central-apnea index (PEDRO) was 0.0. The mean oxygen saturation during the study was 89.0%, with a minimum oxygen saturation of 86.0%. The patient spent 80.3% of sleep time with an oxygen saturation below 90%. The maximum end-tidal CO2 was 58 mmHg. The patient spent 96.5% of sleep time with an EtCO2 above 45 mmHg and 73.2% above 50 mmHg. Joey-Darby/Periodic Breathing was not present. PAIN FLANK 08/13/2008 10/13/2019 OBESITY 05/04/2006 10/13/2019 PLANTAR FASCIITIS 05/04/2006 08/19/2006 Essential hypertension, benign 0 07/07/2008 Tobacco use disorder 10/05/2011 documented as of this encounter (statuses as of 08/31/2022) [facility] History of Past illness Narrative* Problem Noted Date Resolved Date Routine physical examination 05/19/2019 Screening for colon cancer 08/27/201810/13 Overview: Added automatically from request for surgery [id number] Acute bronchitis with chroni c obstructive pulmonary disease (COPD) 11/06/2017 10/13/2019 Well adult exam 11/09/2016 10/13/2019 COPD (chronic obstructive pulmonary disease) 06/201010/13/2019 Overview: titration 01/07/2013 RESPIRATORY DATA: This study was performed on room air. Snoring was noted. There were 26 respiratory events consisting of 0 apneas and 26 hypopneas. The apnea-hypopnea index (AHI) was 9.8 and the central-apnea index (PEDRO) was 0.0. The mean oxygen saturation during the study was 89.0%, with a minimum oxygen saturation of 86.0%. The patient spent 80.3% of sleep time with an oxygen saturation below 90%. The maximum end-tidal CO2 was 58 mmHg. The patient spent 96.5% of sleep time with an EtCO2 above 45 mmHg and 73.2% above 50 mmHg. Joey-Darby/Periodic Breathing was not present. PAIN FLANK 08/13/2008 10/13/2019 OBESITY 05/04/2006 10/13/2019 PLANTAR FASCIITIS 05/04/2006 08/19/2006 Essential hypertension, benign 0 07/07/2008 Tobacco use disorder 10/05/2011 documented as of this encounter (statuses as of 09/10/2022) [facility] History of Past illness Narrative* Problem Noted Date Resolved Date Routine physical examination 05/19/2019 Screening for colon cancer 08/27/201810/13 Overview: Added automatically from request for surgery [id number] Acute bronchitis with chroni c obstructive pulmonary disease (COPD) 11/06/2017 10/13/2019 Well adult exam 11/09/2016 10/13/2019 COPD (chronic obstructive pulmonary disease) 06/201010/13/2019 Overview: titration 01/07/2013 RESPIRATORY DATA: This study was performed on room air. Snoring was noted. There were 26 respiratory events consisting of 0 apneas and 26 hypopneas. The apnea-hypopnea index (AHI) was 9.8 and the central-apnea index (PEDRO) was 0.0. The mean oxygen saturation during the study was 89.0%, with a minimum oxygen saturation of 86.0%. The patient spent 80.3% of sleep time with an oxygen saturation below 90%. The maximum end-tidal CO2 was 58 mmHg. The patient spent 96.5% of sleep time with an EtCO2 above 45 mmHg and 73.2% above 50 mmHg. Joey-Darby/Periodic Breathing was not present. PAIN FLANK 08/13/2008 10/13/2019 OBESITY 05/04/2006 10/13/2019 PLANTAR FASCIITIS 05/04/2006 08/19/2006 Essential hypertension, benign 0 07/07/2008 Tobacco use disorder 10/05/2011 documented as of this encounter (statuses as of 09/14/2022) [facility] History of Past illness Narrative* Problem Noted Date Resolved Date Routine physical examination 05/19/2019 Screening for colon cancer 08/27/201810/13 Overview: Added automatically from request for surgery [id number] Acute bronchitis with chroni c obstructive pulmonary disease (COPD) 11/06/2017 10/13/2019 Well adult exam 11/09/2016 10/13/2019 COPD (chronic obstructive pulmonary disease) 06/201010/13/2019 Overview: titration 01/07/2013 RESPIRATORY DATA: This study was performed on room air. Snoring was noted. There were 26 respiratory events consisting of 0 apneas and 26 hypopneas. The apnea-hypopnea index (AHI) was 9.8 and the central-apnea index (PEDRO) was 0.0. The mean oxygen saturation during the study was 89.0%, with a minimum oxygen saturation of 86.0%. The patient spent 80.3% of sleep time with an oxygen saturation below 90%. The maximum end-tidal CO2 was 58 mmHg. The patient spent 96.5% of sleep time with an EtCO2 above 45 mmHg and 73.2% above 50 mmHg. Joey-Darby/Periodic Breathing was not present. PAIN FLANK 08/13/2008 10/13/2019 OBESITY 05/04/2006 10/13/2019 PLANTAR FASCIITIS 05/04/2006 08/19/2006 Essential hypertension, benign 0 07/07/2008 Tobacco use disorder 10/05/2011 documented as of this encounter (statuses as of 09/28/2022) [facility] History of Past illness Narrative* Problem Noted Date Resolved Date Routine physical examination 05/19/2019 Screening for colon cancer 08/27/201810/13 Overview: Added automatically from request for surgery [id number] Acute bronchitis with chroni c obstructive pulmonary disease (COPD) 11/06/2017 10/13/2019 Well adult exam 11/09/2016 10/13/2019 COPD (chronic obstructive pulmonary disease) 06/201010/13/2019 Overview: titration 01/07/2013 RESPIRATORY DATA: This study was performed on room air. Snoring was noted. There were 26 respiratory events consisting of 0 apneas and 26 hypopneas. The apnea-hypopnea index (AHI) was 9.8 and the central-apnea index (PEDRO) was 0.0. The mean oxygen saturation during the study was 89.0%, with a minimum oxygen saturation of 86.0%. The patient spent 80.3% of sleep time with an oxygen saturation below 90%. The maximum end-tidal CO2 was 58 mmHg. The patient spent 96.5% of sleep time with an EtCO2 above 45 mmHg and 73.2% above 50 mmHg. Joey-Darby/Periodic Breathing was not present. PAIN FLANK 08/13/2008 10/13/2019 OBESITY 05/04/2006 10/13/2019 PLANTAR FASCIITIS 05/04/2006 08/19/2006 Essential hypertension, benign 0 07/07/2008 Tobacco use disorder 10/05/2011 documented as of this encounter (statuses as of 10/10/2022) [facility] History of Past illness Narrative* Problem Noted Date Resolved Date Routine physical examination 05/19/2019 Screening for colon cancer 08/27/201810/13 Overview: Added automatically from request for surgery [id number] Acute bronchitis with chroni c obstructive pulmonary disease (COPD) 11/06/2017 10/13/2019 Well adult exam 11/09/2016 10/13/2019 COPD (chronic obstructive pulmonary disease) 06/201010/13/2019 Overview: titration 01/07/2013 RESPIRATORY DATA: This study was performed on room air. Snoring was noted. There were 26 respiratory events consisting of 0 apneas and 26 hypopneas. The apnea-hypopnea index (AHI) was 9.8 and the central-apnea index (PEDRO) was 0.0. The mean oxygen saturation during the study was 89.0%, with a minimum oxygen saturation of 86.0%. The patient spent 80.3% of sleep time with an oxygen saturation below 90%. The maximum end-tidal CO2 was 58 mmHg. The patient spent 96.5% of sleep time with an EtCO2 above 45 mmHg and 73.2% above 50 mmHg. Joey-Darby/Periodic Breathing was not present. PAIN FLANK 08/13/2008 10/13/2019 OBESITY 05/04/2006 10/13/2019 PLANTAR FASCIITIS 05/04/2006 08/19/2006 Essential hypertension, benign 0 07/07/2008 Tobacco use disorder 10/05/2011 documented as of this encounter (statuses as of 10/19/2022) [facility] History of Past illness Narrative* Problem Noted Date Resolved Date Routine physical examination 05/19/2019 Screening for colon cancer 08/27/201810/13 Overview: Added automatically from request for surgery [id number] Acute bronchitis with chroni c obstructive pulmonary disease (COPD) 11/06/2017 10/13/2019 Well adult exam 11/09/2016 10/13/2019 COPD (chronic obstructive pulmonary disease) 06/201010/13/2019 Overview: titration 01/07/2013 RESPIRATORY DATA: This study was performed on room air. Snoring was noted. There were 26 respiratory events consisting of 0 apneas and 26 hypopneas. The apnea-hypopnea index (AHI) was 9.8 and the central-apnea index (PEDRO) was 0.0. The mean oxygen saturation during the study was 89.0%, with a minimum oxygen saturation of 86.0%. The patient spent 80.3% of sleep time with an oxygen saturation below 90%. The maximum end-tidal CO2 was 58 mmHg. The patient spent 96.5% of sleep time with an EtCO2 above 45 mmHg and 73.2% above 50 mmHg. Joey-Darby/Periodic Breathing was not present. PAIN FLANK 08/13/2008 10/13/2019 OBESITY 05/04/2006 10/13/2019 PLANTAR FASCIITIS 05/04/2006 08/19/2006 Essential hypertension, benign 0 07/07/2008 Tobacco use disorder 10/05/2011 documented as of this encounter (statuses as of 10/30/2022) [facility] History of Past illness Narrative* Problem Noted Date Resolved Date Routine physical examination 05/19/2019 Screening for colon cancer 08/27/201810/13 Overview: Added automatically from request for surgery [id number] Acute bronchitis with chroni c obstructive pulmonary disease (COPD) 11/06/2017 10/13/2019 Well adult exam 11/09/2016 10/13/2019 COPD (chronic obstructive pulmonary disease) 06/201010/13/2019 Overview: titration 01/07/2013 RESPIRATORY DATA: This study was performed on room air. Snoring was noted. There were 26 respiratory events consisting of 0 apneas and 26 hypopneas. The apnea-hypopnea index (AHI) was 9.8 and the central-apnea index (PEDRO) was 0.0. The mean oxygen saturation during the study was 89.0%, with a minimum oxygen saturation of 86.0%. The patient spent 80.3% of sleep time with an oxygen saturation below 90%. The maximum end-tidal CO2 was 58 mmHg. The patient spent 96.5% of sleep time with an EtCO2 above 45 mmHg and 73.2% above 50 mmHg. Joey-Darby/Periodic Breathing was not present. PAIN FLANK 08/13/2008 10/13/2019 OBESITY 05/04/2006 10/13/2019 PLANTAR FASCIITIS 05/04/2006 08/19/2006 Essential hypertension, benign 0 07/07/2008 Tobacco use disorder 10/05/2011 documented as of this encounter (statuses as of 12/05/2022) [facility] History of Past illness Narrative* Problem Noted Date Diagnosed Date Resolved Date Routine physical examination 05/19/2019 10/13/2019 Screening for colon cancer 08/27/2018 1 12/14/2018 Overview: Added automatically from request for surgery [id number] Acute bronchitis with chroni c obstructive pulmonary disease (COPD) 11/06/2017 10/13/2019 Well adult exam 11/09/2016 10/13/2019 COPD (chronic obstructive pulmonary disease) 0 10/13/2019 Overview: titration 01/07/2013 RESPIRATORY DATA: This study was performed on room air. Snoring was noted. There were 26 respiratory events consisting of 0 apneas and 26 hypopneas. The apnea-hypopnea index (AHI) was 9.8 and the central-apnea index (PEDRO) was 0.0. The mean oxygen saturation during the study was 89.0%, with a minimum oxygen saturation of 86.0%. The patient spent 80.3% of sleep time with an oxygen saturation below 90%. The maximum end-tidal CO2 was 58 mmHg. The patient spent 96.5% of sleep time with an EtCO2 above 45 mmHg and 73.2% above 50 mmHg. Joey-Darby/Periodic Breathing was not present. PAIN FLANK 08/13/2008 10/13/2019 OBESITY 05/04/2006 10/13/2019 PLANTAR FASCIITIS 05/04/2006 08/19/2006 Essential hypertension, benign 07/07/2008 Tobacco use disorder 011 documented as of this encounter (statuses as of 05/30/2023) [facility] History of Past illness Narrative* Problem Noted Date Diagnosed Date Resolved Date Routine physical examination 05/19/2019 10/13/2019 Screening for colon cancer 08/27/2018 1 12/14/2018 Overview: Added automatically from request for surgery [id number] Acute bronchitis with chroni c obstructive pulmonary disease (COPD) 11/06/2017 10/13/2019 Well adult exam 11/09/2016 10/13/2019 COPD (chronic obstructive pulmonary disease) 0 10/13/2019 Overview: titration 01/07/2013 RESPIRATORY DATA: This study was performed on room air. Snoring was noted. There were 26 respiratory events consisting of 0 apneas and 26 hypopneas. The apnea-hypopnea index (AHI) was 9.8 and the central-apnea index (PEDRO) was 0.0. The mean oxygen saturation during the study was 89.0%, with a minimum oxygen saturation of 86.0%. The patient spent 80.3% of sleep time with an oxygen saturation below 90%. The maximum end-tidal CO2 was 58 mmHg. The patient spent 96.5% of sleep time with an EtCO2 above 45 mmHg and 73.2% above 50 mmHg. Joey-Darby/Periodic Breathing was not present. PAIN FLANK 08/13/2008 10/13/2019 OBESITY 05/04/2006 10/13/2019 PLANTAR FASCIITIS 05/04/2006 08/19/2006 Essential hypertension, benign 07/07/2008 Tobacco use disorder 011 documented as of this encounter (statuses as of 06/13/2023) [facility] History of Past illness Narrative* Problem Noted Date Diagnosed Date Resolved Date Routine physical examination 05/19/2019 10/13/2019 Screening for colon cancer 08/27/2018 1 12/14/2018 Overview: Added automatically from request for surgery [id number] Acute bronchitis with chroni c obstructive pulmonary disease (COPD) 11/06/2017 10/13/2019 Well adult exam 11/09/2016 10/13/2019 COPD (chronic obstructive pulmonary disease) 0 10/13/2019 Overview: titration 01/07/2013 RESPIRATORY DATA: This study was performed on room air. Snoring was noted. There were 26 respiratory events consisting of 0 apneas and 26 hypopneas. The apnea-hypopnea index (AHI) was 9.8 and the central-apnea index (PEDRO) was 0.0. The mean oxygen saturation during the study was 89.0%, with a minimum oxygen saturation of 86.0%. The patient spent 80.3% of sleep time with an oxygen saturation below 90%. The maximum end-tidal CO2 was 58 mmHg. The patient spent 96.5% of sleep time with an EtCO2 above 45 mmHg and 73.2% above 50 mmHg. Joey-Darby/Periodic Breathing was not present. PAIN FLANK 08/13/2008 10/13/2019 OBESITY 05/04/2006 10/13/2019 PLANTAR FASCIITIS 05/04/2006 08/19/2006 Essential hypertension, benign 07/07/2008 Tobacco use disorder 011 documented as of this encounter (statuses as of 06/13/2023) [facility] History of Past illness Narrative* Problem Noted Date Diagnosed Date Resolved Date Routine physical examination 05/19/2019 10/13/2019 Screening for colon cancer 08/27/2018 1 12/14/2018 Overview: Added automatically from request for surgery [id number] Acute bronchitis with chroni c obstructive pulmonary disease (COPD) (HCC) 11/06/2017 9 Well adult exam 11/09/2016 10/13/2019 COPD (chronic obstructive pulmonary disease) 0 10/13/2019 Overview: titration 01/07/2013 RESPIRATORY DATA: This study was performed on room air. Snoring was noted. There were 26 respiratory events consisting of 0 apneas and 26 hypopneas. The apnea-hypopnea index (AHI) was 9.8 and the central-apnea index (PEDRO) was 0.0. The mean oxygen saturation during the study was 89.0%, with a minimum oxygen saturation of 86.0%. The patient spent 80.3% of sleep time with an oxygen saturation below 90%. The maximum end-tidal CO2 was 58 mmHg. The patient spent 96.5% of sleep time with an EtCO2 above 45 mmHg and 73.2% above 50 mmHg. Joey-Darby/Periodic Breathing was not present. PAIN FLANK 08/13/2008 10/13/2019 OBESITY 05/04/2006 10/13/2019 PLANTAR FASCIITIS 05/04/2006 08/19/2006 Essential hypertension, benign 07/07/2008 Tobacco use disorder 011 documented as of this encounter (statuses as of 07/30/2023) [facility] History of Past illness Narrative* Problem Noted Date Diagnosed Date Resolved Date Routine physical examination 05/19/2019 10/13/2019 Screening for colon cancer 08/27/2018 1 12/14/2018 Overview: Added automatically from request for surgery [id number] Acute bronchitis with chroni c obstructive pulmonary disease (COPD) (HCC) 11/06/2017 9 Well adult exam 11/09/2016 10/13/2019 COPD (chronic obstructive pulmonary disease) 0 10/13/2019 Overview: titration 01/07/2013 RESPIRATORY DATA: This study was performed on room air. Snoring was noted. There were 26 respiratory events consisting of 0 apneas and 26 hypopneas. The apnea-hypopnea index (AHI) was 9.8 and the central-apnea index (PEDRO) was 0.0. The mean oxygen saturation during the study was 89.0%, with a minimum oxygen saturation of 86.0%. The patient spent 80.3% of sleep time with an oxygen saturation below 90%. The maximum end-tidal CO2 was 58 mmHg. The patient spent 96.5% of sleep time with an EtCO2 above 45 mmHg and 73.2% above 50 mmHg. Joey-Darby/Periodic Breathing was not present. PAIN FLANK 08/13/2008 10/13/2019 OBESITY 05/04/2006 10/13/2019 PLANTAR FASCIITIS 05/04/2006 08/19/2006 Essential hypertension, benign 07/07/2008 Tobacco use disorder 011 documented as of this encounter (statuses as of 08/14/2023) [facility] History of Past illness Narrative* Problem Noted Date Diagnosed Date Resolved Date Routine physical examination 05/19/2019 10/13/2019 Screening for colon cancer 08/27/2018 1 12/14/2018 Overview: Added automatically from request for surgery [id number] Acute bronchitis with chroni c obstructive pulmonary disease (COPD) (HCC) 11/06/2017 9 Well adult exam 11/09/2016 10/13/2019 COPD (chronic obstructive pulmonary disease) 0 10/13/2019 Overview: titration 01/07/2013 RESPIRATORY DATA: This study was performed on room air. Snoring was noted. There were 26 respiratory events consisting of 0 apneas and 26 hypopneas. The apnea-hypopnea index (AHI) was 9.8 and the central-apnea index (PEDRO) was 0.0. The mean oxygen saturation during the study was 89.0%, with a minimum oxygen saturation of 86.0%. The patient spent 80.3% of sleep time with an oxygen saturation below 90%. The maximum end-tidal CO2 was 58 mmHg. The patient spent 96.5% of sleep time with an EtCO2 above 45 mmHg and 73.2% above 50 mmHg. Joey-Darby/Periodic Breathing was not present. PAIN FLANK 08/13/2008 10/13/2019 OBESITY 05/04/2006 10/13/2019 PLANTAR FASCIITIS 05/04/2006 08/19/2006 Essential hypertension, benign 07/07/2008 Tobacco use disorder 011 documented as of this encounter (statuses as of 08/16/2023) [facility] History of Past illness Narrative* Problem Noted Date Diagnosed Date Resolved Date Routine physical examination 05/19/2019 10/13/2019 Screening for colon cancer 08/27/2018 1 12/14/2018 Overview: Added automatically from request for surgery [id number] Acute bronchitis with chroni c obstructive pulmonary disease (COPD) 11/06/2017 10/13/2019 Well adult exam 11/09/2016 10/13/2019 COPD (chronic obstructive pulmonary disease) 0 10/13/2019 Overview: titration 01/07/2013 RESPIRATORY DATA: This study was performed on room air. Snoring was noted. There were 26 respiratory events consisting of 0 apneas and 26 hypopneas. The apnea-hypopnea index (AHI) was 9.8 and the central-apnea index (PEDRO) was 0.0. The mean oxygen saturation during the study was 89.0%, with a minimum oxygen saturation of 86.0%. The patient spent 80.3% of sleep time with an oxygen saturation below 90%. The maximum end-tidal CO2 was 58 mmHg. The patient spent 96.5% of sleep time with an EtCO2 above 45 mmHg and 73.2% above 50 mmHg. Joey-Darby/Periodic Breathing was not present. PAIN FLANK 08/13/2008 10/13/2019 OBESITY 05/04/2006 10/13/2019 PLANTAR FASCIITIS 05/04/2006 08/19/2006 Essential hypertension, benign 07/07/2008 Tobacco use disorder 011 documented as of this encounter (statuses as of 2023) [facility] History of Past illness Narrative* Problem Noted Date Diagnosed Date Resolved Date Routine physical examination 05/19/2019 10/13/2019 Screening for colon cancer 08/27/2018 1 12/14/2018 Overview: Added automatically from request for surgery [id number] Acute bronchitis with chroni c obstructive pulmonary disease (COPD) 11/06/2017 10/13/2019 Well adult exam 11/09/2016 10/13/2019 COPD (chronic obstructive pulmonary disease) 0 10/13/2019 Overview: titration 01/07/2013 RESPIRATORY DATA: This study was performed on room air. Snoring was noted. There were 26 respiratory events consisting of 0 apneas and 26 hypopneas. The apnea-hypopnea index (AHI) was 9.8 and the central-apnea index (PEDRO) was 0.0. The mean oxygen saturation during the study was 89.0%, with a minimum oxygen saturation of 86.0%. The patient spent 80.3% of sleep time with an oxygen saturation below 90%. The maximum end-tidal CO2 was 58 mmHg. The patient spent 96.5% of sleep time with an EtCO2 above 45 mmHg and 73.2% above 50 mmHg. Joey-Darby/Periodic Breathing was not present. PAIN FLANK 08/13/2008 10/13/2019 OBESITY 05/04/2006 10/13/2019 PLANTAR FASCIITIS 05/04/2006 08/19/2006 Essential hypertension, benign 07/07/2008 Tobacco use disorder 011 documented as of this encounter (statuses as of 2023) [facility] History of Past illness Narrative* Problem Noted Date Diagnosed Date Resolved Date Routine physical examination 05/19/2019 10/13/2019 Screening for colon cancer 08/27/2018 1 12/14/2018 Overview: Added automatically from request for surgery [id number] Acute bronchitis with chroni c obstructive pulmonary disease (COPD) 11/06/2017 10/13/2019 Well adult exam 11/09/2016 10/13/2019 COPD (chronic obstructive pulmonary disease) 0 10/13/2019 Overview: titration 01/07/2013 RESPIRATORY DATA: This study was performed on room air. Snoring was noted. There were 26 respiratory events consisting of 0 apneas and 26 hypopneas. The apnea-hypopnea index (AHI) was 9.8 and the central-apnea index (PEDRO) was 0.0. The mean oxygen saturation during the study was 89.0%, with a minimum oxygen saturation of 86.0%. The patient spent 80.3% of sleep time with an oxygen saturation below 90%. The maximum end-tidal CO2 was 58 mmHg. The patient spent 96.5% of sleep time with an EtCO2 above 45 mmHg and 73.2% above 50 mmHg. Joey-Darby/Periodic Breathing was not present. PAIN FLANK 08/13/2008 10/13/2019 OBESITY 05/04/2006 10/13/2019 PLANTAR FASCIITIS 05/04/2006 08/19/2006 Essential hypertension, benign 07/07/2008 Tobacco use disorder 011 documented as of this encounter (statuses as of 2023) [facility] History of Past illness Narrative* Problem Noted Date Diagnosed Date Resolved Date Routine physical examination 05/19/2019 10/13/2019 Screening for colon cancer 08/27/2018 1 12/14/2018 Overview: Added automatically from request for surgery [id number] Acute bronchitis with chroni c obstructive pulmonary disease (COPD) 11/06/2017 10/13/2019 Well adult exam 11/09/2016 10/13/2019 COPD (chronic obstructive pulmonary disease) 0 10/13/2019 Overview: titration 01/07/2013 RESPIRATORY DATA: This study was performed on room air. Snoring was noted. There were 26 respiratory events consisting of 0 apneas and 26 hypopneas. The apnea-hypopnea index (AHI) was 9.8 and the central-apnea index (PEDRO) was 0.0. The mean oxygen saturation during the study was 89.0%, with a minimum oxygen saturation of 86.0%. The patient spent 80.3% of sleep time with an oxygen saturation below 90%. The maximum end-tidal CO2 was 58 mmHg. The patient spent 96.5% of sleep time with an EtCO2 above 45 mmHg and 73.2% above 50 mmHg. Joey-Darby/Periodic Breathing was not present. PAIN FLANK 08/13/2008 10/13/2019 OBESITY 05/04/2006 10/13/2019 PLANTAR FASCIITIS 05/04/2006 08/19/2006 Essential hypertension, benign 07/07/2008 Tobacco use disorder 011 documented as of this encounter (statuses as of 2023) [facility] History of Past illness Narrative* Problem Noted Date Diagnosed Date Resolved Date Routine physical examination 05/19/2019 10/13/2019 Screening for colon cancer 08/27/2018 1 12/14/2018 Overview: Added automatically from request for surgery [id number] Acute bronchitis with chroni c obstructive pulmonary disease (COPD) 11/06/2017 10/13/2019 Well adult exam 11/09/2016 10/13/2019 COPD (chronic obstructive pulmonary disease) 0 10/13/2019 Overview: titration 01/07/2013 RESPIRATORY DATA: This study was performed on room air. Snoring was noted. There were 26 respiratory events consisting of 0 apneas and 26 hypopneas. The apnea-hypopnea index (AHI) was 9.8 and the central-apnea index (PEDRO) was 0.0. The mean oxygen saturation during the study was 89.0%, with a minimum oxygen saturation of 86.0%. The patient spent 80.3% of sleep time with an oxygen saturation below 90%. The maximum end-tidal CO2 was 58 mmHg. The patient spent 96.5% of sleep time with an EtCO2 above 45 mmHg and 73.2% above 50 mmHg. Joey-Darby/Periodic Breathing was not present. PAIN FLANK 08/13/2008 10/13/2019 OBESITY 05/04/2006 10/13/2019 PLANTAR FASCIITIS 05/04/2006 08/19/2006 Essential hypertension, benign 07/07/2008 Tobacco use disorder 011 documented as of this encounter (statuses as of 09/05/2023) [facility] History of Past illness Narrative* Problem Noted Date Diagnosed Date Resolved Date Routine physical examination 05/19/2019 10/13/2019 Screening for colon cancer 08/27/2018 1 12/14/2018 Overview: Added automatically from request for surgery [id number] Acute bronchitis with chroni c obstructive pulmonary disease (COPD) ([facility]) 11/06/2017 9 Well adult exam 11/09/2016 10/13/2019 COPD (chronic obstructive pulmonary disease) 0 10/13/2019 Overview: titration 01/07/2013 RESPIRATORY DATA: This study was performed on room air. Snoring was noted. There were 26 respiratory events consisting of 0 apneas and 26 hypopneas. The apnea-hypopnea index (AHI) was 9.8 and the central-apnea index (PEDRO) was 0.0. The mean oxygen saturation during the study was 89.0%, with a minimum oxygen saturation of 86.0%. The patient spent 80.3% of sleep time with an oxygen saturation below 90%. The maximum end-tidal CO2 was 58 mmHg. The patient spent 96.5% of sleep time with an EtCO2 above 45 mmHg and 73.2% above 50 mmHg. Joey-Darby/Periodic Breathing was not present. PAIN FLANK 08/13/2008 10/13/2019 OBESITY 05/04/2006 10/13/2019 PLANTAR FASCIITIS 05/04/2006 08/19/2006 Essential hypertension, benign 07/07/2008 Tobacco use disorder 011 documented as of this encounter (statuses as of 09/18/2023) [facility] History of Past illness Narrative* Problem Noted Date Diagnosed Date Resolved Date Routine physical examination 05/19/2019 10/13/2019 Screening for colon cancer 08/27/2018 1 12/14/2018 Overview: Added automatically from request for surgery [id number] Acute bronchitis with chroni c obstructive pulmonary disease (COPD) ([facility]) 11/06/2017 9 Well adult exam 11/09/2016 10/13/2019 COPD (chronic obstructive pulmonary disease) 0 10/13/2019 Overview: titration 01/07/2013 RESPIRATORY DATA: This study was performed on room air. Snoring was noted. There were 26 respiratory events consisting of 0 apneas and 26 hypopneas. The apnea-hypopnea index (AHI) was 9.8 and the central-apnea index (PEDRO) was 0.0. The mean oxygen saturation during the study was 89.0%, with a minimum oxygen saturation of 86.0%. The patient spent 80.3% of sleep time with an oxygen saturation below 90%. The maximum end-tidal CO2 was 58 mmHg. The patient spent 96.5% of sleep time with an EtCO2 above 45 mmHg and 73.2% above 50 mmHg. Joey-Darby/Periodic Breathing was not present. PAIN FLANK 08/13/2008 10/13/2019 OBESITY 05/04/2006 10/13/2019 PLANTAR FASCIITIS 05/04/2006 08/19/2006 Essential hypertension, benign 07/07/2008 Tobacco use disorder 011 documented as of this encounter (statuses as of 10/09/2023) [facility] History of Past illness Narrative* Problem Noted Date Diagnosed Date Resolved Date Routine physical examination 05/19/2019 10/13/2019 Screening for colon cancer 08/27/2018 1 12/14/2018 Overview: Added automatically from request for surgery [id number] Acute bronchitis with chroni c obstructive pulmonary disease (COPD) ([facility]) 11/06/2017 9 Well adult exam 11/09/2016 10/13/2019 COPD (chronic obstructive pulmonary disease) 0 10/13/2019 Overview: titration 01/07/2013 RESPIRATORY DATA: This study was performed on room air. Snoring was noted. There were 26 respiratory events consisting of 0 apneas and 26 hypopneas. The apnea-hypopnea index (AHI) was 9.8 and the central-apnea index (PEDRO) was 0.0. The mean oxygen saturation during the study was 89.0%, with a minimum oxygen saturation of 86.0%. The patient spent 80.3% of sleep time with an oxygen saturation below 90%. The maximum end-tidal CO2 was 58 mmHg. The patient spent 96.5% of sleep time with an EtCO2 above 45 mmHg and 73.2% above 50 mmHg. Joey-Darby/Periodic Breathing was not present. PAIN FLANK 08/13/2008 10/13/2019 OBESITY 05/04/2006 10/13/2019 PLANTAR FASCIITIS 05/04/2006 08/19/2006 Essential hypertension, benign 07/07/2008 Tobacco use disorder 011 documented as of this encounter (statuses as of 12/25/2023) [facility] History of Past illness Narrative* Problem Noted Date Diagnosed Date Resolved Date Routine physical examination 05/19/2019 10/13/2019 Screening for colon cancer 08/27/2018 1 12/14/2018 Overview: Added automatically from request for surgery [id number] Acute bronchitis with chroni c obstructive pulmonary disease (COPD) (HCC) 11/06/2017 9 Well adult exam 11/09/2016 10/13/2019 COPD (chronic obstructive pulmonary disease) 0 10/13/2019 Overview: titration 01/07/2013 RESPIRATORY DATA: This study was performed on room air. Snoring was noted. There were 26 respiratory events consisting of 0 apneas and 26 hypopneas. The apnea-hypopnea index (AHI) was 9.8 and the central-apnea index (PEDRO) was 0.0. The mean oxygen saturation during the study was 89.0%, with a minimum oxygen saturation of 86.0%. The patient spent 80.3% of sleep time with an oxygen saturation below 90%. The maximum end-tidal CO2 was 58 mmHg. The patient spent 96.5% of sleep time with an EtCO2 above 45 mmHg and 73.2% above 50 mmHg. Joey-Darby/Periodic Breathing was not present. PAIN FLANK 08/13/2008 10/13/2019 OBESITY 05/04/2006 10/13/2019 PLANTAR FASCIITIS 05/04/2006 08/19/2006 Essential hypertension, benign 07/07/2008 Tobacco use disorder 011 documented as of this encounter (statuses as of 12/27/2023) [place] [id number] History of Past illness Narrative* Problem Noted Date Diagnosed Date Resolved Date Routine physical examination 05/19/2019 10/13/2019 Screening for colon cancer 08/27/2018 1 12/14/2018 Overview: Added automatically from request for surgery [id number] Acute bronchitis with chroni c obstructive pulmonary disease (COPD) ([facility]) 11/06/2017 9 Well adult exam 11/09/2016 10/13/2019 COPD (chronic obstructive pulmonary disease) 0 10/13/2019 Overview: titration 01/07/2013 RESPIRATORY DATA: This study was performed on room air. Snoring was noted. There were 26 respiratory events consisting of 0 apneas and 26 hypopneas. The apnea-hypopnea index (AHI) was 9.8 and the central-apnea index (PEDRO) was 0.0. The mean oxygen saturation during the study was 89.0%, with a minimum oxygen saturation of 86.0%. The patient spent 80.3% of sleep time with an oxygen saturation below 90%. The maximum end-tidal CO2 was 58 mmHg. The patient spent 96.5% of sleep time with an EtCO2 above 45 mmHg and 73.2% above 50 mmHg. Joey-Darby/Periodic Breathing was not present. PAIN FLANK 08/13/2008 10/13/2019 OBESITY 05/04/2006 10/13/2019 PLANTAR FASCIITIS 05/04/2006 08/19/2006 Essential hypertension, benign 07/07/2008 Tobacco use disorder 011 documented as of this encounter (statuses as of 01/30/2024) [facility] History of Past illness Narrative* Problem Noted Date Diagnosed Date Resolved Date Routine physical examination 05/19/2019 10/13/2019 Screening for colon cancer 08/27/2018 1 12/14/2018 Overview: Added automatically from request for surgery [id number] Acute bronchitis with chroni c obstructive pulmonary disease (COPD) ([facility]) 11/06/2017 9 Well adult exam 11/09/2016 10/13/2019 COPD (chronic obstructive pulmonary disease) 0 10/13/2019 Overview: titration 01/07/2013 RESPIRATORY DATA: This study was performed on room air. Snoring was noted. There were 26 respiratory events consisting of 0 apneas and 26 hypopneas. The apnea-hypopnea index (AHI) was 9.8 and the central-apnea index (PEDRO) was 0.0. The mean oxygen saturation during the study was 89.0%, with a minimum oxygen saturation of 86.0%. The patient spent 80.3% of sleep time with an oxygen saturation below 90%. The maximum end-tidal CO2 was 58 mmHg. The patient spent 96.5% of sleep time with an EtCO2 above 45 mmHg and 73.2% above 50 mmHg. Joey-Darby/Periodic Breathing was not present. PAIN FLANK 08/13/2008 10/13/2019 OBESITY 05/04/2006 10/13/2019 PLANTAR FASCIITIS 05/04/2006 08/19/2006 Essential hypertension, benign 07/07/2008 Tobacco use disorder 011 documented as of this encounter (statuses as of 02/13/2024) [facility] Author Brandan Rodas [facility] Note Date/Time February 23, 2025 2:1 2pm [facility] Medical Records Department [address] [place] [address] Counseling Note - Pharmacy 02/23/25 1410 MR#: [id number] Acct: [id number] Name: LISA LUCERO Rep #:[id number] 23 : 1955 69 From: Brandan Rodas PCP: Dr. Phuc Martines, DO Status:AD M IN Y Location: [facility] [id number] Pharmacy [facility] Pharmacy Service has performed discharge medication reconciliation and counseling for this patient. 1. Apixaban 5mg PO BID 2. Furosemide 40mg PO BID 3. Metoprolol tartrate 50mg PO BID 4. Potassium chloride 20mEq PO BID 5. Stop triamterene/hydrochlorothiazide The patient's discharge medication list was reviewed for discrepancies and discrepancies were resolved. The patient was counseled on the following discharge medications and changes in medications for homegoing were reviewed. The Reason for Use, instructions for use, and potential side effects were reviewed for all new medications. The patient's questions regarding all of their medications were answered. The patient was able to verbally demonstrate an understanding of their dischargemedications. Patient counseled by pharmacy specialist, Pete. Medications at Discharge Home Medications Oxygen, Home [Home Oxygen] 2 - 4 lpm QHS 11/13/17 ascorbic acid (vitamin C) 500 mg capsule 500 mg PO DAILY 11/13/17 albuterol sulfate 90 mcg/actuation breath activated powder inhaler 2 inh inhalation Q6H PRN shortness of breath 02/19/25 amlodipine 10 mg tablet 10 mg PO DAILY 02/19/25 fluticasone fur. 200 mcg-umeclid 62.5 mcg-vilant 25 mcg inhalat.powder (Trelegy Ellipta) 1 ea inhalation DAILY 02/19/25 guaifenesin 1,200 mg tablet, extended release 12 hr (Mucus Relief ER) 1,200 mg PO BID PRN cough 02/19/25 ipratropium 0.5 mg-albuterol 3 mg (2.5 mg base)/3 mL nebulization soln 3 ml inhalation Q6H PRN shortness of breath 02/19/25 multivitamin (Daily Multi-Vitamin tablet) 1 tab PO DAILY 02/19/25 sodium chloride 0.65 % nasal spray aerosol (Oxford Saline) 1 spray intranasal BID PRN dry nasal passages 02/19/25 triamcinolone acetonide 0.5 % topical cream 1 applic topical BID PRN itching 02/19/25 apixaban 5 mg tablet (Eliquis) 5 mg PO BID #60 tabs 02/23/25 furosemide 40 mg tablet 40 mg PO BID #60 tabs 02/23/25 metoprolol tartrate 50 mg tablet 50 mg PO BID #60 tabs 02/23/25 potassium chloride 20 mEq tablet,extended release(part/cryst) (Klor-Con M) 20 meq PO BID #60 tabs 02/23/25 02/23/25 1412 <Electronically signed by Brandan Rodas> Date _ Brandan Rodas Cosigner Signature (if applicable): Date CC: ~ Signed [facility] Work Phone: Evaluation note* Diagnosis Chronic obstructive pulmonary disease, unspecified COPD type (HCC)- Primary Essential hypertension Unspecified essential hypertension Impaired fasting glucose Dyslipidemia Other and unspecified hyperlipidemia Vitamin D deficiency Unspecified vitamin D deficiency Lightheaded Dizziness and giddiness [facility] Diagnosis Chronic obstructive pulmonary disease, unspecified COPD type (HCC)- Primary Dyspnea and respiratory abnormalities Other dyspnea and respiratory abnormality [facility] Diagnosis Chronic obstructive pulmonary disease, unspecified COPD type (HCC) [facility]* Diagnosis Chronic obstructive pulmonary disease, unspecified COPD type (HCC) [facility]* Diagnosis Chronic obstructive pulmonary disease, unspecified COPD type (HCC)- Primary Chronic hypoxemic respiratory failure (HCC) Chronic respiratory failure Dyspnea and respiratory abnormalities Other dyspnea and respiratory abnormality Former smoker Personal history of tobacco use, presenting hazards to health [facility]* Diagnosis Chronic obstructive pulmonary disease, unspecified COPD type (HCC)- Primary [facility]* Diagnosis Chronic obstructive pulmonary disease, unspecified COPD type (HCC)- Primary Essential hypertension Unspecified essential hypertension Need for influenza vaccination Need for prophylactic vaccination and inoculation against influenza Impaired fasting glucose Dyslipidemia Other and unspecified hyperlipidemia Chronic respiratory failure with hypoxia (HCC) Chronic respiratory failure Stage 3 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) Oxygen dependent Dependence on supplemental oxygen [facility]* Diagnosis Cyst of spleen- Primary Other diseases of spleen [facility] this [facility]* Diagnosis Encounter for screening mammogram for breast cancer [facility] Diagnosis COVID- Primary Chronic obstructive pulmonary disease, unspecified COPD type (HCC) Bacterial sinusitis Unspecified sinusitis (chronic) Oxygen dependent Dependence on supplemental oxygen [facility]* Diagnosis Chronic obstructive pulmonary disease, unspecified COPD type (HCC) Oxygen dependent Dependence on supplemental oxygen [facility]* Diagnosis Cyst of spleen- Primary Other diseases of spleen documented in this encounter [facility] note* Diagnosis Chronic obstructive pulmonary disease, unspecified COPD type (HCC)- Primary Oxygen dependent Dependence on supplemental oxygen [facility]* Diagnosis Chronic obstructive pulmonary disease, unspecified COPD type (HCC) documented in this encounter [facility]* Diagnosis Chronic obstructive pulmonary disease, unspecified COPD type (HCC)- Primary Oxygen dependent Dependence on supplemental oxygen documented in this encounter [facility]* Diagnosis Chronic obstructive pulmonary disease, unspecified COPD type (HCC) Oxygen dependent Dependence on supplemental oxygen documented in this encounter [facility]* Diagnosis COPD, severe (HCC)- Primary Chronic airway obstruction, not elsewhere classified Chronic hypoxemic respiratory failure (HCC) Chronic respiratory failure Former cigarette smoker Personal history of tobacco use, presenting hazards to health Morbid obesity ([facility]) Morbid obesity documented in this encounter [facility] note* Diagnosis Essential hypertension Unspecified essential hypertension documented in this encounter [facility]* Diagnosis Essential hypertension- Primary Unspecified essential hypertension Need for influenza vaccination Need for prophylactic vaccination and inoculation against influenza Encounter for screening mammogram for malignant neoplasm of breast Other screening mammogram Need for RSV immunization Need for prophylactic vaccination and inoculation against respiratory syncytial virus Vitamin D deficiency Unspecified vitamin D deficiency Impaired fasting glucose Stage 3 severe COPD by GOLD classification ([facility]) Oxygen dependent Dependence on supplemental oxygen Fatigue, unspecified type Rash of foot Dyslipidemia Other and unspecified hyperlipidemia documented in this encounter [facility] note* Diagnosis Encounter for screening mammogram for breast cancer documented in this encounter [facility]* Diagnosis Cyst of spleen Other diseases of spleen documented in this encounter [facility] note* Diagnosis Chronic obstructive pulmonary disease, unspecified COPD type (HCC) Chronic respiratory failure with hypoxia (HCC) Chronic respiratory failure Stage 3 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) Oxygen dependent Dependence on supplemental oxygen documented in this encounter [facility]* Diagnosis Cyst of spleen Other diseases of spleen documented in this encounter [facility]* Diagnosis Chronic obstructive pulmonary disease, unspecified COPD type (HCC)- Primary Oxygen dependent Dependence on supplemental oxygen documented in this encounter [facility]* Diagnosis Encounter for screening mammogram for malignant neoplasm of breast Other screening mammogram documented in this encounter [facility]* Diagnosis Former cigarette smoker Personal history of tobacco use, presenting hazards to health [facility] Diagnosis Dyslipidemia- Primary Other and unspecified hyperlipidemia Impaired fasting glucose [facility] this [facility] Diagnosis Stage 3 severe COPD by GOLD classification ([facility])- Primary Chronic respiratory failure with hypoxia (HCC) Chronic respiratory failure Morbid obesity with BMI of 45.0-49.9, adult (HCC) Morbid obesity Lung nodules Other nonspecific abnormal finding of lung field [facility] this [facility] Diagnosis Skin infection- Primary Unspecified local infection of skin and subcutaneous tissue [facility] this [facility] Diagnosis Acute bronchitis with chronic obstructive pulmonary disease (COPD) (HCC) ([facility])- Primary Obstructive chronic bronchitis with acute bronchitis Chronic obstructive pulmonary disease, unspecified COPD type (HCC) Acute otitis media, left Unspecified otitis media Dyslipidemia Other and unspecified hyperlipidemia Impaired fasting glucose Vitamin D deficiency Unspecified vitamin D deficiency Essential hypertension Unspecified essential hypertension Stage 3 severe COPD by GOLD classification ([facility]) Fatigue, unspecified type Oxygen dependent Dependence on supplemental oxygen Morbid obesity with BMI of 45.0-49.9, adult ([facility]) Morbid obesity Thoracic aortic ectasia (HCC) Thoracic aortic ectasia [facility] this [facility] Diagnosis Stage 3 severe COPD by GOLD classification ([facility])- Primary Chronic hypoxemic respiratory failure (HCC) Chronic respiratory failure Former cigarette smoker Personal history of tobacco use, presenting hazards to health Morbid obesity ([facility]) Morbid obesity [facility] this [facility] Diagnosis Essential hypertension Unspecified essential hypertension documented in this [facility] Diagnosis COVID Bacterial sinusitis Unspecified sinusitis (chronic) Chronic obstructive pulmonary disease, unspecified COPD type ([facility]) documented [facility] this [facility]* Diagnosis Acute gout involving toe of right foot, unspecified cause documented in this [facility] Diagnosis Multiple lung nodules- Primary Other nonspecific abnormal finding of lung field Encounter for screening for lung cancer Former tobacco use Personal history of tobacco use, presenting hazards to health documented [facility] this [facility]* Diagnosis Former cigarette smoker Personal history of tobacco use, presenting hazards to health documented in this [facility]* Diagnosis Encounter for screening mammogram for breast cancer documented [facility] this [facility]* Diagnosis Dyslipidemia- Primary Other and unspecified hyperlipidemia Chronic obstructive pulmonary disease, unspecified COPD type ([facility]) Impaired fasting glucose documented in this encounter [facility] note* Diagnosis Encounter for screening mammogram for breast cancer documented in this encounter [facility] note* Diagnosis Stage 3 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)- Primary Chronic respiratory failure with hypoxia (HCC) Chronic respiratory failure Former cigarette smoker Personal history of tobacco use, presenting hazards to health documented in this encounter [facility] note* Diagnosis Medicare annual wellness visit, subsequent- Primary Routine general medical examination at a health care facility Hair thinning Alopecia, unspecified Fatigue, unspecified type Impaired fasting glucose Dyslipidemia Other and unspecified hyperlipidemia Vitamin D deficiency Unspecified vitamin D deficiency Stage 3 severe COPD by GOLD classification ([facility]) Essential hypertension Unspecified essential hypertension Oxygen dependent Dependence on supplemental oxygen Morbid obesity with BMI of 45.0-49.9, adult (HCC) Morbid obesity documented in this encounter [facility] note* Diagnosis Multiple lung nodules- Primary Other nonspecific abnormal finding of lung field Former tobacco use Personal history of tobacco use, presenting hazards to health documented in this encounter [facility]* Diagnosis Lung nodules- Primary Other nonspecific abnormal finding of lung field documented in this encounter [facility]* Diagnosis Hospital discharge follow-up- Primary Other follow-up examination Atrial flutter, unspecified type (HCC) Congestive heart failure, unspecified HF chronicity, unspecified heart failure type (HCC) Stage 3 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) Oxygen dependent Dependence on supplemental oxygen Essential hypertension Unspecified essential hypertension documented in this encounter [facility] note* Diagnosis Daytime sleepiness- Primary Stage 3 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) Chronic respiratory failure with hypoxia (HCC) Chronic respiratory failure documented in this encounter [facility] note* Diagnosis Essential (primary) hypertension Unspecified essential hypertension Atrial flutter, unspecified type (HCC) documented in this encounter [facility] note* Diagnosis Acute cystitis with hematuria Acute cystitis Candidal intertrigo Candidiasis of skin and nails Confusion Unspecified psychosis documented in this encounter [facility]* Diagnosis Acute confusion- Primary Delirium due to conditions classified elsewhere Atrial flutter, unspecified type (HCC) Tachycardia Tachycardia, unspecified Stage 3 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) Congestive heart failure, unspecified HF chronicity, unspecified heart failure type (HCC) Hypersomnia Hypersomnia, unspecified Hives Urticaria, unspecified Abnormal pulse oximetry Abnormal arterial blood gases documented in this encounter [facility] Discharge instructionsAmbulatory Orders* Electrophysiology Location: None Selected [place] [employer] Work Phone: Reason for referral (narrative)* Outpatient Procedure (Routine) - Authorized Specialty Diagnoses / Procedures Referred By Contac t Referred To [facility] Diagnoses Chronic obstructive pulmonary disease, unspecified COPD type (HCC) Procedures ECHO ECHO TTHRC R-T 2D W/WOM-MODE COMPL SPEC&COLR D Hodan Christine PA-C [address] [address] [facility] [address] [address] Referral ID Status Reason Start Date Expiration Date Visits Requested Visits Authorized [id number] Authorized Auto-Generat ed Referral OON/Self Pay Override 02/09/2022 02/09/2023 1 1 * Outpatient Procedure (Routine) - Authorized Specialty Diagnoses / Procedures Referred By Contac t Referred To Contact [facility] Diagnoses Chronic obstructive pulmonary disease, unspecified COPD type (HCC) Procedures OXIMETRY WITH AMBULATION NONINVASIVE EAR/PULSE OXIMETRY MULTIPLE DETER Hodan Christine PA-C [address] [address] [facility] [place] [address] [place] [address] Referral ID Status Reason Start Date Expiration Date Visits Requested Visits Authorized [id number] Authorized Auto-Generat ed Referral OON/Self Pay Override 02/09/2022 03/11/2023 1 1 * Outpatient Procedure (Routine) - Authorized Specialty Diagnoses / Procedures Referred By Contac t Referred To Contact [facility] Diagnoses Chronic obstructive pulmonary disease, unspecified COPD type (HCC) Procedures SPIROMETRY BASELINE ONLY SPMTRY W/VC EXPIRATORY MARTIN W/WO MXML VOL VNTJ Hodan Christine PA-C [address] [address] [facility] [place] [facility] [address] [place] [address] Referral ID Status Reason Start Date Expiration Date Visits Requested Visits Authorized [id number] Authorized Auto-Generat ed Referral OON/Self Pay Override 02/09/2022 03/11/2023 1 1 [facility] for referral (narrative)* Diagnostic Procedure Only (Routine) - Authorized Specialty Diagnoses / Procedures Referred By Contac t Referred To Contact [facility] Diagnoses Cyst of spleen Procedures US ABD SPLEEN US ABDOMINAL REAL TIME W/IMAGE LIMITED Pratibha King APRN.CNP [address] [place] [address] Us Imaging Referral ID Status Reason Start Date Expiration Date Visits Requested Visits Authorized [id number] Authorized Auto-Generat ed Referral 08/30/2022 09/29/2023 1 1 [facility] for referral (narrative)* Diagnostic Procedure Only (Routine) - Authorized Specialty Diagnoses / Procedures Referred By Contac t Referred To Contact [facility] Diagnoses Encounter for screening mammogram for breast cancer Procedures ANUSHA SCREENING SCREENING MAMMOGRAPHY BI 2-VIEW BREAST INC CAD Phuc Martines DO [address] [place] [address] [facility] [address] [place] [address] Referral ID Status Reason Start Date Expiration Date Visits Requested Visits Authorized [id number] Authorized Auto-Generat ed Referral 09/05/2022 10/05/2023 1 1 [facility] for referral (narrative)* Diagnostic Procedure Only (Routine) - Authorized Specialty Diagnoses / Procedures Referred By Contac t Referred To Contact [facility] IMAG[facility] Diagnoses Cyst of spleen Procedures US ABD SPLEEN US ABDOMINAL REAL TIME W/IMAGE LIMITED Pratibha King APRN.CNP [address] [place] [address] Us Imaging Referral ID Status Reason Start Date Expiration Date Visits Requested Visits Authorized [id number] Authorized Auto-Generat ed Referral 03/06/2023 10/06/2023 1 1 [facility] for referral (narrative)* Outpatient Procedure (Routine) - Authorized Specialty Diagnoses / Procedures Referred By Contac t Referred To [facility] Diagnoses Chronic obstructive pulmonary disease, unspecified COPD type (HCC) Oxygen dependent Procedures OXIMETRY WITH AMBULATION NONINVASIVE EAR/PULSE OXIMETRY Hodan Sewell PA-C [address] [place] [address] [facility] [address] [place] [address] Referral ID Status Reason Start Date Expiration Date Visits Requested Visits Authorized [id number] Authorized Auto-Generat ed Referral 05/30/2023 06/28/2024 1 1 T [facility] for referral (narrative)* Diagnostic Procedure Only (Routine) - Authorized Specialty Diagnoses / Procedures Referred By Contac t Referred To Contact [facility] Diagnoses Encounter for screening mammogram for malignant neoplasm of breast Procedures ANUSHA SCREENING SCREENING MAMMOGRAPHY BI 2-VIEW BREAST INC CAD Phuc Martines, DO [address] [place] [address] [facility] [address] [place] [phone] Referral ID Status Reason Start Date Expiration Date Visits Requested Visits Authorized [id number] Authorized Auto-Generat ed Referral 09/12/2024 1 1 [facility] for referral (narrative)* Diagnostic Procedure Only (Routine) - Closed Specialty Diagnoses / Procedures Referred By Contac t Referred To Contact [facility] Diagnoses Encounter for screening mammogram for breast cancer Procedures ANUSHA SCREENING SCREENING MAMMOGRAPHY BI 2-VIEW BREAST INC CAD Phuc Martines, DO [address] [place] [address] [facility] [address] [place] [address] Referral ID Status Reason Start Date Expiration Date V isits Requested Visits Authorized [id number] Closed Auto-Generate d Referral 09/05/2022 10/05/2023 1 1 [facility] for referral (narrative)* Diagnostic Procedure Only (Routine) - Closed Specialty Diagnoses / Procedures Referred By Contac t Referred To Contact [facility] Diagnoses Cyst of spleen Procedures US ABD SPLEEN US ABDOMINAL REAL TIME W/IMAGE LIMITED Pratibha King APRN.CULTURE MANAGER [address] [place] [address] [place] [address] Referral ID Status Reason Start Date Expiration Date V isits Requested Visits Authorized [id number] Closed Auto-Generate d Referral 03/06/2023 10/06/2023 1 1 [facility] for referral (narrative)* Diagnostic Procedure Only (Routine) - Pending Review Specialty Diagnoses / Procedures Referred By Contac t Referred To Contact [facility] Diagnoses Cyst of spleen Procedures US ABD SPLEEN US ABDOMINAL REAL TIME W/IMAGE LIMITED Pratibha King APRN.CULTURE MANAGER [address] [place] [address] [place] [address] Referral ID Status Reason Start Date Expiration Date Visits Requested Visits Authorized [id number] Pending Review Auto-Generat ed Referral 08/30/2022 09/29/2023 1 1 [facility] for referral (narrative)* Outpatient Procedure (Routine) - Closed Specialty Diagnoses / Procedures Referred By Contac t Referred To Contact [facility] Diagnoses Chronic obstructive pulmonary disease, unspecified COPD type (HCC) Oxygen dependent Procedures OXIMETRY WITH AMBULATION NONINVASIVE EAR/PULSE OXIMETRY Phuc Montgomery DO [address] [place] [address] [facility] [address] [place] [address] Referral ID Status Reason Start Date Expiration Date V isits Requested Visits Authorized [id number] Closed Auto-Generate d Referral 09/24/2022 10/24/2023 1 1 [facility] for referral (narrative)* Diagnostic Procedure Only (Routine) - Closed Specialty Diagnoses / Procedures Referred By Contac t Referred To Contact [facility] Diagnoses Encounter for screening mammogram for malignant neoplasm of breast Procedures ANUSHA SCREENING SCREENING MAMMOGRAPHY BI 2-VIEW BREAST INC Phuc Tejeda, DO [address] [place] [address] [facility] [address] [place] [address] Referral ID Status Reason Start Date Expiration Date V isits Requested Visits Authorized [id number] Closed Auto-Generate d Referral 08/14/2023 09/12/2024 1 1 [facility] for referral (narrative)* Diagnostic Procedure Only (Routine) - New Request Specialty Diagnoses / Procedures Referred By Marcy t Referred To Contact [facility] Diagnoses Encounter for screening mammogram for breast cancer Procedures ANUSHA SCREENING W ASHLEY SCREENING DIGITAL BREAST TOMOSYNTHESIS BI SCREENING MAMMOGRAPHY BI 2-VIEW BREAST INC CAD Phuc Martines, DO [address] [place] [address] [facility] [address] [place] [address] Referral ID Status Reason Start Date Expiration Date Visits Requested Visits Authorized [id number] New Request Auto-Generat ed Referral 11/20/2025 1 1 [facility] for referral (narrative)* Diagnostic Procedure Only (Routine) - Closed Specialty Diagnoses / Procedures Referred By Contac t Referred To Contact [facility] Diagnoses Encounter for screening mammogram for breast cancer Procedures ANUSHA SCREENING W ASHLEY SCREENING DIGITAL BREAST TOMOSYNTHESIS BI SCREENING MAMMOGRAPHY BI 2-VIEW BREAST INC CAD Phuc Martines, DO [address] [place] [address] [facility] [address] [place] [address] Referral ID Status Reason Start Date Expiration Date V isits Requested Visits Authorized [id number] Closed Auto-Generate d Referral 10/21/2024 11/20/2025 1 1 [facility] for visit Narrative* Outpatient Procedure (Routine) - Closed Specialty Diagnoses / Procedures Referred By Marcy t Referred To Contact [facility] Diagnoses Chronic obstructive pulmonary disease, unspecified COPD type (HCC) Oxygen dependent Procedures OXIMETRY WITH AMBULATION NONINVASIVE EAR/PULSE OXIMETRY MULTIPLE Phuc Maldonado DO [address] [place] [address] [facility] [address] [place] [address] Referral ID Status Reason Start Date Expiration Date V isits Requested Visits Authorized [id number] Closed Auto-Generate d Referral 09/24/2022 10/24/2023 1 1 [facility] for visit Narrative* Diagnostic Procedure Only (Routine) - Closed Specialty Diagnoses / Procedures Referred By Marcy t Referred To Contact [facility] Diagnoses Encounter for screening mammogram for breast cancer Procedures ANUSHA SCREENING SCREENING MAMMOGRAPHY BI 2-VIEW BREAST INC Phuc Tejeda DO [address] [place] [address] [facility] [address] [place] [phone] Referral ID Status Reason Start Date Expiration Date V isits Requested Visits Authorized [id number] Closed Auto-Generate d Referral 09/05/2022 10/05/2023 1 1 [facility] for visit Narrative* Diagnostic Procedure Only (Routine) - Closed Specialty Diagnoses / Procedures Referred By Marcy t Referred To Contact [facility] Diagnoses Cyst of spleen Procedures US ABD SPLEEN US ABDOMINAL REAL TIME W/IMAGE LIMITED Pratibha King, AVIATION TACTICAL READINESS OFFICER.CULTURE MANAGER [address] [place] [address] [facility] [address] Referral ID Status Reason Start Date Expiration Date V isits Requested Visits Authorized [id number] Closed Auto-Generate d Referral 03/06/2023 10/06/2023 1 1 [facility] for visit Narrative* Diagnostic Procedure Only (Routine) - Closed Specialty Diagnoses / Procedures Referred By Marcy t Referred To Contact [facility] Diagnoses Encounter for screening mammogram for malignant neoplasm of breast Procedures ANUSHA SCREENING SCREENING MAMMOGRAPHY BI 2-VIEW BREAST INC CAD Conrad Phuc L, DO [address] [place] [address] [facility] [address] [place] [address] Referral ID Status Reason Start Date Expiration Date V isits Requested Visits Authorized [id number] Closed Auto-Generate d Referral 08/14/2023 09/12/2024 1 1 [facility] for visit Narrative* Diagnostic Procedure Only (Routine) - Closed Specialty Diagnoses / Procedures Referred By Marcy boudreaux Referred To Contact [facility] Diagnoses Encounter for screening mammogram for breast cancer Procedures ANUSHA SCREENING W ASHLEY SCREENING DIGITAL BREAST TOMOSYNTHESIS BI SCREENING MAMMOGRAPHY BI 2-VIEW BREAST INC CAD Phuc Martines L, DO [address] [place] [address] [facility] [address] [place] [address] Referral ID Status Reason Start Date Expiration Date V isits Requested Visits Authorized [id number] Closed Auto-Generate d Referral 10/21/2024 11/20/2025 1 1 [facility] Summary Purpose Family History Relationship Condition Age at Onset Recorded Date/T farooq Unknown Family History?COPD Unknown March 9:32pm Family History?COPD Unknown March 9:32pm Family History?Cancer Unknown March 282016 9:32pm Relationship Condition Age at Onset Recorded Date/T farooq father Malignant neoplasm Unknown mother Chronic obstructive pulmonary disease Unk nown Alcoholism Unknown grandmother Hypertension Unknown Disorder of thyroid Unknown Advance Directives Documents on File Type Date Recorded 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 No February 19, 2025 4:27pm Reason for Referral Specialty Diagnoses / Procedures Referred By Contac t Referred To Contact CT IMAGING Diagnoses Chronic obstructive pulmonary disease, unspecified COPD type (HCC) Chronic respiratory failure with hypoxia (HCC) Stage 3 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) Oxygen dependent Procedures CT CHEST WO IVCON DIAGNOSTIC COMPUTED TOMOGRAPHY THORAX W/O CNTRST Phuc Martines L, DO [address] [place] [address] Ct Imaging Referral ID Status Reason Start Date Expiration Date Visits Requested Visits Authorized [id number] Authorized Auto-Generat ed Referral 08/01/2022 08/31/2023 1 1 Specialty Diagnoses / Procedures Referred By Contac t Referred To Contact CT IMAGING Diagnoses Chronic obstructive pulmonary disease, unspecified COPD type (HCC) Chronic respiratory failure with hypoxia (HCC) Stage 3 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) Oxygen dependent Procedures CT CHEST WO IVCON DIAGNOSTIC COMPUTED TOMOGRAPHY THORAX W/O CNTRST Phuc Martines L, DO [address] [place] [address] Ct Imaging [facility] Referral ID Status Reason Start Date Expiration Date V isits Requested Visits Authorized [id number] Closed Auto-Generate d Referral 08/01/2022 08/31/2023 1 1 Specialty Diagnoses / Procedures Referred By Contac t Referred To Contact CT IMAGING Diagnoses Lung nodules Procedures CT LUNG FOLLOWUP WO IVCON DIAGNOSTIC COMPUTED TOMOGRAPHY THORAX W/O CNTRST Maricruz Camp, AVIATION TACTICAL READINESS OFFICER.CULTURE MANAGER [address] [place] [address] Ct Imaging [facility] Referral ID Status Reason Start Date Expiration Date Visits Requested Visits Authorized [id number] New Request Auto-Generat ed Referral 12/26/2024 11/18/2025 1 1 Specialty Diagnoses / Procedures Referred By Contac t Referred To Contact CT IMAGING Diagnoses Former cigarette smoker Procedures CT LUNG SCREEN WO IVCON COMPUTED TOMOGRAPHY THORAX LW DOSE LNG CA SCR C- Maricruz Camp, [employer]IATION TACTICAL READINESS OFFICER.CULTURE MANAGER [address] [place] [address] Ct Imaging [id number] Referral ID Status Reason Start Date Expiration Date V isits Requested Visits Authorized [id number] Closed Auto-Generate d Referral 10/11/2023 11/09/2024 1 1 Chief Complaint and Reason for Visit Chief Complaint Admit Date HYPOXIA February 19, 2025 3:5 3pm HYPOXIA February 20, 2025 8:0 7am HYPOXIA February 21, 2025 11: 44am HYPOXIA February 22, 2025 2:1 1pm HYPOXIA February 23, 2025 1:2 2pm Reason for Visit Admit Date Atrial flutter February 19, 2025 3:5 3pm Dyspnea on exertion February 19, 2025 3:5 3pm Shortness of breath February 19, 2025 3:5 3pm Acute on chronic hypoxic respiratory deanna lure February 19, 2025 3:53pm Chief Complaint Admit Date HYPOXIA February 19, 2025 3:5 3pm HYPOXIA February 20, 2025 8:0 7am HYPOXIA February 21, 2025 11: 44am HYPOXIA February 22, 2025 2:1 1pm HYPOXIA February 23, 2025 1:2 2pm S/P [facility] 02/23 ([facility]) March 30, 2025 11:2 4am Reason for Visit Admit Date Atrial flutter February 19, 2025 3:5 3pm Shortness of breath February 19, 2025 3:5 3pm Acute on chronic hypoxic respiratory deanna lure February 19, 2025 3:53pm Dyspnea on exertion February 19, 2025 3:5 3pm Atrial flutter March 30, 2025 11:24 am Additional Source Comments INFORMATION SOURCE (unrecogn ized section and content) DATE CREATED AUTHOR 10/05/2018 [facility] DATE CREATED AUTHOR AUTHOR'S ORGANIZ ATION 04/08/2025 [facility] DATE CREATED AUTHOR AUTHOR'S ORGANIZ ATION 04/23/2025 [facility] Source Comments (unrecognize d section and content) In the event this informatio n is protected by the Federal Confidentiality of Alcohol and Drug Abuse Patient Records regulations: The Federal rules restrict any use of the information to criminally investigate or prosecute any alcohol or drug abuse patient.[facility] the event this information is protected by the Federal Confidentiality of Alcohol and Drug Abuse Patient Records regulations: The Federal rules restrict any use of the information to criminally investigate or prosecute any alcohol or drug abuse patient.[facility]In the event this information is protected by the Federal Confidentiality of Alcohol and Drug Abuse Patient Records regulations: The Federal rules restrict any use of the information to criminally investigate or prosecute any alcohol or drug abuse patient.[facility]In the event this information is protected by the Federal Confidentiality of Alcohol and Drug Abuse Patient Records regulations: The Federal rules restrict any use of the information to criminally investigate or prosecute any alcohol or drug abuse patient.[facility]In the event this information is protected by the Federal Confidentiality of Alcohol and Drug Abuse Patient Records regulations: The Federal rules restrict any use of the information to criminally investigate or prosecute any alcohol or drug abuse patient.[facility]In the event this information is protected by the Federal Confidentiality of Alcohol and Drug Abuse Patient Records regulations: The Federal rules restrict any use of the information to criminally investigate or prosecute any alcohol or drug abuse patient.[facility]In the event this information is protected by the Federal Confidentiality of Alcohol and Drug Abuse Patient Records regulations: The Federal rules restrict any use of the information to criminally investigate or prosecute any alcohol or drug abuse patient.[facility]In the event this information is protected by the Federal Confidentiality of Alcohol and Drug Abuse Patient Records regulations: The Federal rules restrict any use of the information to criminally investigate or prosecute any alcohol or drug abuse patient.[facility]In the event this information is protected by the Federal Confidentiality of Alcohol and Drug Abuse Patient Records regulations: The Federal rules restrict any use of the information to criminally investigate or prosecute any alcohol or drug abuse patient.[facility] the event this information is protected by the Federal Confidentiality of Alcohol and Drug Abuse Patient Records regulations: The Federal rules restrict any use of the information to criminally investigate or prosecute any alcohol or drug abuse patient.[facility]In the event this information is protected by the Federal Confidentiality of Alcohol and Drug Abuse Patient Records regulations: The Federal rules restrict any use of the information to criminally investigate or prosecute any alcohol or drug abuse patient.[facility]In the event this information is protected by the Federal Confidentiality of Alcohol and Drug Abuse Patient Records regulations: The Federal rules restrict any use of the information to criminally investigate or prosecute any alcohol or drug abuse patient.[facility] the event this information is protected by the Federal Confidentiality of Alcohol and Drug Abuse Patient Records regulations: The Federal rules restrict any use of the information to criminally investigate or prosecute any alcohol or drug abuse patient.[facility]In the event this information is protected by the Federal Confidentiality of Alcohol and Drug Abuse Patient Records regulations: The Federal rules restrict any use of the information to criminally investigate or prosecute any alcohol or drug abuse patient.[facility]In the event this information is protected by the Federal Confidentiality of Alcohol and Drug Abuse Patient Records regulations: The Federal rules restrict any use of the information to criminally investigate or prosecute any alcohol or drug abuse patient.[facility]In the event this information is protected by the Federal Confidentiality of Alcohol and Drug Abuse Patient Records regulations: The Federal rules restrict any use of the information to criminally investigate or prosecute any alcohol or drug abuse patient.[facility]In the event this information is protected by the Federal Confidentiality of Alcohol and Drug Abuse Patient Records regulations: The Federal rules restrict any use of the information to criminally investigate or prosecute any alcohol or drug abuse patient.[facility]In the event this information is protected by the Federal Confidentiality of Alcohol and Drug Abuse Patient Records regulations: The Federal rules restrict any use of the information to criminally investigate or prosecute any alcohol or drug abuse patient.[facility] SouthIn the event this information is protected by the Federal Confidentiality of Alcohol and Drug Abuse Patient Records regulations: The Federal rules restrict any use of the information to criminally investigate or prosecute any alcohol or drug abuse patient.[facility]In the event this information is protected by the Federal Confidentiality of Alcohol and Drug Abuse Patient Records regulations: The Federal rules restrict any use of the information to criminally investigate or prosecute any alcohol or drug abuse patient.[facility] SouthIn the event this information is protected by the Federal Confidentiality of Alcohol and Drug Abuse Patient Records regulations: The Federal rules restrict any use of the information to criminally investigate or prosecute any alcohol or drug abuse patient.[facility] SouthIn the event this information is protected by the Federal Confidentiality of Alcohol and Drug Abuse Patient Records regulations: The Federal rules restrict any use of the information to criminally investigate or prosecute any alcohol or drug abuse patient.[facility]In the event this information is protected by the Federal Confidentiality of Alcohol and Drug Abuse Patient Records regulations: The Federal rules restrict any use of the information to criminally investigate or prosecute any alcohol or drug abuse patient.[facility] SouthIn the event this information is protected by the Federal Confidentiality of Alcohol and Drug Abuse Patient Records regulations: The Federal rules restrict any use of the information to criminally investigate or prosecute any alcohol or drug abuse patient.[facility]In the event this information is protected by the Federal Confidentiality of Alcohol and Drug Abuse Patient Records regulations: The Federal rules restrict any use of the information to criminally investigate or prosecute any alcohol or drug abuse patient.[facility]In the event this information is protected by the Federal Confidentiality of Alcohol and Drug Abuse Patient Records regulations: The Federal rules restrict any use of the information to criminally investigate or prosecute any alcohol or drug abuse patient.[facility] SouthIn the event this information is protected by the Federal Confidentiality of Alcohol and Drug Abuse Patient Records regulations: The Federal rules restrict any use of the information to criminally investigate or prosecute any alcohol or drug abuse patient.[facility] SouthIn the event this information is protected by the Federal Confidentiality of Alcohol and Drug Abuse Patient Records regulations: The Federal rules restrict any use of the information to criminally investigate or prosecute any alcohol or drug abuse patient.[facility] SouthIn the event this information is protected by the Federal Confidentiality of Alcohol and Drug Abuse Patient Records regulations: The Federal rules restrict any use of the information to criminally investigate or prosecute any alcohol or drug abuse patient.[facility] SouthIn the event this information is protected by the Federal Confidentiality of Alcohol and Drug Abuse Patient Records regulations: The Federal rules restrict any use of the information to criminally investigate or prosecute any alcohol or drug abuse patient.[facility] SouthIn the event this information is protected by the Federal Confidentiality of Alcohol and Drug Abuse Patient Records regulations: The Federal rules restrict any use of the information to criminally investigate or prosecute any alcohol or drug abuse patient.[facility]In the event this information is protected by the Federal Confidentiality of Alcohol and Drug Abuse Patient Records regulations: The Federal rules restrict any use of the information to criminally investigate or prosecute any alcohol or drug abuse patient.[facility] SouthIn the event this information is protected by the Federal Confidentiality of Alcohol and Drug Abuse Patient Records regulations: The Federal rules restrict any use of the information to criminally investigate or prosecute any alcohol or drug abuse patient.[facility] SouthIn the event this information is protected by the Federal Confidentiality of Alcohol and Drug Abuse Patient Records regulations: The Federal rules restrict any use of the information to criminally investigate or prosecute any alcohol or drug abuse patient.[facility] SouthIn the event this information is protected by the Federal Confidentiality of Alcohol and Drug Abuse Patient Records regulations: The Federal rules restrict any use of the information to criminally investigate or prosecute any alcohol or drug abuse patient.[facility] SouthIn the event this information is protected by the Federal Confidentiality of Alcohol and Drug Abuse Patient Records regulations: The Federal rules restrict any use of the information to criminally investigate or prosecute any alcohol or drug abuse patient.[facility] SouthIn the event this information is protected by the Federal Confidentiality of Alcohol and Drug Abuse Patient Records regulations: The Federal rules restrict any use of the information to criminally investigate or prosecute any alcohol or drug abuse patient.[facility] SouthIn the event this information is protected by the Federal Confidentiality of Alcohol and Drug Abuse Patient Records regulations: The Federal rules restrict any use of the information to criminally investigate or prosecute any alcohol or drug abuse patient.[facility] SouthIn the event this information is protected by the Federal Confidentiality of Alcohol and Drug Abuse Patient Records regulations: The Federal rules restrict any use of the information to criminally investigate or prosecute any alcohol or drug abuse patient.[facility] SouthIn the event this information is protected by the Federal Confidentiality of Alcohol and Drug Abuse Patient Records regulations: The Federal rules restrict any use of the information to criminally investigate or prosecute any alcohol or drug abuse patient.[facility] SouthIn the event this information is protected by the Federal Confidentiality of Alcohol and Drug Abuse Patient Records regulations: The Federal rules restrict any use of the information to criminally investigate or prosecute any alcohol or drug abuse patient.[facility] SouthIn the event this information is protected by the Federal Confidentiality of Alcohol and Drug Abuse Patient Records regulations: The Federal rules restrict any use of the information to criminally investigate or prosecute any alcohol or drug abuse patient.[facility] SouthIn the event this information is protected by the Federal Confidentiality of Alcohol and Drug Abuse Patient Records regulations: The Federal rules restrict any use of the information to criminally investigate or prosecute any alcohol or drug abuse patient.[facility] SouthIn the event this information is protected by the Federal Confidentiality of Alcohol and Drug Abuse Patient Records regulations: The Federal rules restrict any use of the information to criminally investigate or prosecute any alcohol or drug abuse patient.[facility]In the event this information is protected by the Federal Confidentiality of Alcohol and Drug Abuse Patient Records regulations: The Federal rules restrict any use of the information to criminally investigate or prosecute any alcohol or drug abuse patient.[facility]In the event this information is protected by the Federal Confidentiality of Alcohol and Drug Abuse Patient Records regulations: The Federal rules restrict any use of the information to criminally investigate or prosecute any alcohol or drug abuse patient.[facility]In the event this information is protected by the Federal Confidentiality of Alcohol and Drug Abuse Patient Records regulations: The Federal rules restrict any use of the information to criminally investigate or prosecute any alcohol or drug abuse patient.[facility] SouthIn the event this information is protected by the Federal Confidentiality of Alcohol and Drug Abuse Patient Records regulations: The Federal rules restrict any use of the information to criminally investigate or prosecute any alcohol or drug abuse patient.[facility] SouthIn the event this information is protected by the Federal Confidentiality of Alcohol and Drug Abuse Patient Records regulations: The Federal rules restrict any use of the information to criminally investigate or prosecute any alcohol or drug abuse patient.[facility]In the event this information is protected by the Federal Confidentiality of Alcohol and Drug Abuse Patient Records regulations: The Federal rules restrict any use of the information to criminally investigate or prosecute any alcohol or drug abuse patient.[facility]In the event this information is protected by the Federal Confidentiality of Alcohol and Drug Abuse Patient Records regulations: The Federal rules restrict any use of the information to criminally investigate or prosecute any alcohol or drug abuse patient.[facility]In the event this information is protected by the Federal Confidentiality of Alcohol and Drug Abuse Patient Records regulations: The Federal rules restrict any use of the information to criminally investigate or prosecute any alcohol or drug abuse patient.[facility]In the event this information is protected by the Federal Confidentiality of Alcohol and Drug Abuse Patient Records regulations: The Federal rules restrict any use of the information to criminally investigate or prosecute any alcohol or drug abuse patient.[facility]In the event this information is protected by the Federal Confidentiality of Alcohol and Drug Abuse Patient Records regulations: The Federal rules restrict any use of the information to criminally investigate or prosecute any alcohol or drug abuse patient.[facility]In the event this information is protected by the Federal Confidentiality of Alcohol and Drug Abuse Patient Records regulations: The Federal rules restrict any use of the information to criminally investigate or prosecute any alcohol or drug abuse patient.[facility]In the event this information is protected by the Federal Confidentiality of Alcohol and Drug Abuse Patient Records regulations: The Federal rules restrict any use of the information to criminally investigate or prosecute any alcohol or drug abuse patient.[facility]In the event this information is protected by the Federal Confidentiality of Alcohol and Drug Abuse Patient Records regulations: The Federal rules restrict any use of the information to criminally investigate or prosecute any alcohol or drug abuse patient.[facility]In the event this information is protected by the Federal Confidentiality of Alcohol and Drug Abuse Patient Records regulations: The Federal rules restrict any use of the information to criminally investigate or prosecute any alcohol or drug abuse patient.[facility]In the event this information is protected by the Federal Confidentiality of Alcohol and Drug Abuse Patient Records regulations: The Federal rules restrict any use of the information to criminally investigate or prosecute any alcohol or drug abuse patient.[facility] the event this information is protected by the Federal Confidentiality of Alcohol and Drug Abuse Patient Records regulations: The Federal rules restrict any use of the information to criminally investigate or prosecute any alcohol or drug abuse patient.[facility]In the event this information is protected by the Federal Confidentiality of Alcohol and Drug Abuse Patient Records regulations: The Federal rules restrict any use of the information to criminally investigate or prosecute any alcohol or drug abuse patient.[facility]In the event this information is protected by the Federal Confidentiality of Alcohol and Drug Abuse Patient Records regulations: The Federal rules restrict any use of the information to criminally investigate or prosecute any alcohol or drug abuse patient.[facility]In the event this information is protected by the Federal Confidentiality of Alcohol and Drug Abuse Patient Records regulations: The Federal rules restrict any use of the information to criminally investigate or prosecute any alcohol or drug abuse patient.[facility]In the event this information is protected by the Federal Confidentiality of Alcohol and Drug Abuse Patient Records regulations: The Federal rules restrict any use of the information to criminally investigate or prosecute any alcohol or drug abuse patient.[facility]In the event this information is protected by the Federal Confidentiality of Alcohol and Drug Abuse Patient Records regulations: The Federal rules restrict any use of the information to criminally investigate or prosecute any alcohol or drug abuse patient.[facility]In the event this information is protected by the Federal Confidentiality of Alcohol and Drug Abuse Patient Records regulations: The Federal rules restrict any use of the information to criminally investigate or prosecute any alcohol or drug abuse patient.[facility]In the event this information is protected by the Federal Confidentiality of Alcohol and Drug Abuse Patient Records regulations: The Federal rules restrict any use of the information to criminally investigate or prosecute any alcohol or drug abuse patient.[facility] Reason for Visit (unrecogniz ed section and content) Reason Comments Follow Up 3 months Specialty Diagnoses / Procedures Referred By Marcy boudreaux Referred To Contact [facility] Diagnoses 3 mo OV Procedures 3Mo OV Phuc Martines, DO [address] [place] [address] [facility] [address] [place] [address] Referral ID Status Reason Start Date Expiration Date Visits Requested Visits Authorized [id number] Pending Review OON/Self Pay Override 12/01/2021 03/01/2022 1 1 Reason Comments Established Patient Specialty Diagnoses / Procedures Referred By Marcy t Referred To [facility] Diagnoses Breathing Issues Procedures Consult to Pulmonary Self [facility] [place] [address] [place] [id number] Referral ID Status Reason Start Date Expiration Date Visits Requested Visits Authorized [id number] Outside PCP OON/Self Pay Override 02/05/2022 05/06/2022 1 1 Reason Onset Date Comments Refill Request 03/07/2022 Reason Comments Spirometry Specialty Diagnoses / Procedures Referred By Contac t Referred To Contact [facility] Diagnoses Chronic obstructive pulmonary disease, unspecified COPD type (HCC) Procedures SPIROMETRY BASELINE ONLY SPMTRY W/VC EXPIRATORY MARTIN W/WO MXML VOL VNTHodan Valencia PA-C [address] [address] [facility] [place] [address] [place] [id number] Referral ID Status Reason Start Date Expiration Date V isits Requested Visits Authorized [id number] Closed Auto-Generate d Referral OON/Self Pay Override 02/09/2022 03/11/2023 1 1 Specialty Diagnoses / Procedures Referred By Contac t Referred To Contact [facility] Diagnoses Chronic obstructive pulmonary disease, unspecified COPD type (HCC) Procedures OXIMETRY WITH AMBULATION NONINVASIVE EAR/PULSE OXIMETRY MULTIPLE DETER Hodan Christine PA-C [address] [address] [facility] [place] [address] [place] [address] Referral ID Status Reason Start Date Expiration Date V isits Requested Visits Authorized [id number] Closed Auto-Generate d Referral OON/Self Pay Override 02/09/2022 03/11/2023 1 1 Reason Comments Established Patient 6 week follow up Specialty Diagnoses / Procedures Referred By Contac t Referred To Contact PULMONARY MEDICINE Diagnoses office visit Procedures office visit Hodan Christine PA-C [address] [facility] [place] [address] [facility] [address] [place] [address] Referral ID Status Reason Start Date Expiration Date Visits Requested Visits Authorized [id number] Pending Review OON/Self Pay Override 02/09/2022 05/10/2022 1 1 Reason Comments Orders Reason Onset Date Comments F/U 3 Month Immunizations 08/01/2022 Flu vaccination Specialty Diagnoses / Procedures Referred By Contac t Referred To Contact INTERNAL MEDICINE Diagnoses 3 month follow up Procedures 4c est Phuc Martines L, DO [address] [place] [address] [facility] [address] [place] [address] Referral ID Status Reason Start Date Expiration Date Visits Requested Visits Authorized [id number] Pending Review OON/Self Pay Override 05/01/2022 08/26/2022 1 1 Reason Comments Forms Reason Comments Results Reason Comments Nasal Congestion Chest congestion , c ough , sx worsened yesterday. Tested + for covid x 1 week ago. Reason Comments Results Scheduling Reason Onset Date Comments Refill Request 12/04/2022 Reason Comments Patient Question Future appt Specialty Diagnoses / Procedures Referred By Contac t Referred To Contact [facility] Diagnoses Chronic obstructive pulmonary disease, unspecified COPD type (HCC) Oxygen dependent Procedures OXIMETRY WITH AMBULATION NONINVASIVE EAR/PULSE OXIMETRY MULTIPLE Hodan Tejada PA-C [address] [place] [address] [facility] [place] [address] [place] [id number] Referral ID Status Reason Start Date Expiration Date V isits Requested Visits Authorized [id number] Closed Auto-Generate d Referral 05/30/2023 06/28/2024 1 1 Reason Comments Established Patient COPD Reason Onset Date Comments Refill Request 07/28/2023 Reason Onset Date Comments 6 Month Exam Immunizations 08/14/2023 Flu vaccination Reason Comments Results Specialty Diagnoses / Procedures Referred By Contac t Referred To Contact CT IMAGING Diagnoses Chronic obstructive pulmonary disease, unspecified COPD type (HCC) Chronic respiratory failure with hypoxia (HCC) Stage 3 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) Oxygen dependent Procedures CT CHEST WO IVCON DIAGNOSTIC COMPUTED TOMOGRAPHY THORAX W/O CNTRST Phuc Martines, DO [address] [place] [id number] [facility] Referral ID Status Reason Start Date Expiration Date V isits Requested Visits Authorized [id number] Closed Auto-Generate d Referral 08/01/2022 08/31/2023 1 1 Reason Comments Radiology US Specialty Diagnoses / Procedures Referred By Contac t Referred To Contact US IMAGING Diagnoses Cyst of spleen Procedures US ABD SPLEEN US ABDOMINAL REAL TIME W/IMAGE LIMITED Pratibha King, JAKI.CULTURE MANAGER [address] [place] [address] [place] [address] Referral ID Status Reason Start Date Expiration Date Visits Requested Visits Authorized [id number] Pending Review Auto-Generat ed Referral 08/30/2022 09/29/2023 1 1 Reason Comments Forms Reason Comments Radiology CT Specialty Diagnoses / Procedures Referred By Contac t Referred To Contact CT IMAGING Diagnoses Former cigarette smoker Procedures CT LUNG SCREEN WO IVCON COMPUTED TOMOGRAPHY THORAX LW DOSE LNG [facility] martin, AVIATION TACTICAL READINESS OFFICER.CULTURE MANAGER [address] [place] [address] Ct Imaging [facility] Referral ID Status Reason Start Date Expiration Date V isits Requested Visits Authorized [id number] Closed Auto-Generate d Referral 09/17/2023 10/16/2024 1 1 Reason Comments Established Patient 6 month follow up Reason Comments Derm Problem left bottom of foot peeling, peeled skin off now warm and sore x 10-14 days Reason Onset Date Comments Refill Request 02/12/2024 Reason Comments 6 Month Exam Reason Comments Patient Update Reason Comments LESION, SKIN right calf x 2 weeks , fell on sidewalk Reason Comments Established Patient Reason Onset Date Comments Refill Request 07/17/2024 Reason Comments Nodule Reason Comments Radiology CT Specialty Diagnoses / Procedures Referred By Contac t Referred To Contact CT IMAGING Diagnoses Former cigarette smoker Procedures CT LUNG SCREEN WO IVCON COMPUTED TOMOGRAPHY THORAX LW DOSE LNG [facility] martin, AVIATION TACTICAL READINESS OFFICER.CULTURE MANAGER [address] [place] [address] Ct Imaging [facility] Referral ID Status Reason Start Date Expiration Date V isits Requested Visits Authorized [id number] Closed Auto-Generate d Referral 10/11/2023 11/09/2024 1 1 Reason Onset Date Comments Population Health Navigation Outreach 11/11/2024 [facility] [place] [facility] Reason Onset Date Comments Refill Request 11/27/2024 Lab Orders 11/27/2024 Reason Comments Follow Up 6 month COPD follow up Reason Comments Follow Up Specialty Diagnoses / Procedures Referred By Contac t Referred To Contact CT IMAGING Diagnoses Lung nodules Procedures CT LUNG FOLLOWUP WO IVCON DIAGNOSTIC COMPUTED TOMOGRAPHY THORAX W/O CNTRST Maricruz Camp, AVIATION TACTICAL READINESS OFFICER.CULTURE MANAGER [address] [place] [address] Phone: tel: fax: CT IMAGING [facility] Referral ID Status Reason Start Date Expiration Date V isits Requested Visits Authorized [id number] Closed Auto-Generate d Referral 12/26/2024 11/18/2025 1 1 Specialty Diagnoses / Procedures Referred By Marcy boudreaux Referred To Contact CT IMAGING Diagnoses Lung nodules Procedures CT LUNG FOLLOWUP WO IVCON DIAGNOSTIC COMPUTED TOMOGRAPHY THORAX W/O CNTRST Maricruz Camp, JAKI.CULTURE MANAGER [address] [place] [address] Phone: tel: fax: [place] [address] Referral ID Status Reason Start Date Expiration Date V isits Requested Visits Authorized [id number] Closed Auto-Generate d Referral 12/26/2024 11/18/2025 1 1 Reason Comments Hospital F/U [facility] COPD Reason Comments Hospital F/U Reason Comments BP Check Had appointment with cardiology yesterday; [facility] Dr. Elena Reason Comments Skin Rashes x 2 days mouth and n ose thick mucous x 1 week Reason Onset Date Comments Results 04/22/2025 Reason Comments increased confusion PT WAS PLACED O A NE W MEDS FOR HEART FLUTTER NOT SURE IF THIS COULD BE A SIDE EFFECT FROM MEDICATION Care Teams (unrecognized sec tion and content) Air Drier Relationship Specialty Start Date End Date Phuc Martines, DO [address] [place] [address] PCP - General Family Practice 11/09/15 Air Drier Relationship Specialty Start Date End Date Phuc Martines DO [address] [place] [address] PCP - General Family Practice 11/09/15 Air Drier Relationship Specialty Start Date End Date Phuc Martines, DO [address] [place] [address] PCP - General Family Practice 11/09/15 Air Drier Relationship Specialty Start Date End Date Phuc Martines DO [address] [place] [address] PCP - General Family Practice 11/09/15 Air Drier Relationship Specialty Start Date End Date Phuc Martines DO [address] [place] [address] PCP - General Family Practice 11/09/15 Air Drier Relationship Specialty Start Date End Date Phuc Martines, DO [address] [place] [address] PCP - General Family Practice 11/09/15 Air Drier Relationship Specialty Start Date End Date Phuc Martines, DO [address] [place] [address] PCP - General Family Practice 11/09/15 Air Drier Relationship Specialty Start Date End Date Phuc Martines, DO [address] [place] [address] PCP - General Family Practice 11/09/15 Air Drier Relationship Specialty Start Date End Date Phuc Martines, DO [address] [place] [address] PCP - General Family Medicine 11/09/15 Air Drier Relationship Specialty Start Date End Date Phuc Martines, DO [address] [place] [address] PCP - General Family Medicine 11/09/15 Air Drier Relationship Specialty Start Date End Date Phuc Martines, DO [address] [place] [address] PCP - General Family Medicine 11/09/15 Air Drier Relationship Specialty Start Date End Date Phuc Martines, DO [address] [place] [address] PCP - General Family Medicine 11/09/15 Air Drier Relationship Specialty Start Date End Date Phuc Martines, DO [address] [place] [address] PCP - General Family Medicine 11/09/15 Air Drier Relationship Specialty Start Date End Date Phuc Martines, DO [address] [place] [address] PCP - General Family Medicine 11/09/15 Air Drier Relationship Specialty Start Date End Date Phuc Martines DO [address] [facility] [place] [address] PCP - General Family Medicine 11/09/15 Air Drier Relationship Specialty Start Date End Date Phuc Martines DO [address] [facility] [place] [address] PCP - General Family Medicine 11/09/15 Air Drier Relationship Specialty Start Date End Date Phuc Martines DO [address] [facility] [place] [address] PCP - General Family Medicine 11/09/15 Air Drier Relationship Specialty Start Date End Date Phuc Martines DO [address] [facility] [place] [address] PCP - General Family Medicine 11/09/15 Air Drier Relationship Specialty Start Date End Date Phuc Martines DO [address] [facility] [place] [address] PCP - General Family Medicine 11/09/15 Air Drier Relationship Specialty Start Date End Date Phuc Martines DO [address] [facility] [place] [address] PCP - General Family Medicine 11/09/15 Air Drier Relationship Specialty Start Date End Date Phuc Martines DO [address] [facility] [place] [address] PCP - General Family Medicine 11/09/15 Air Drier Relationship Specialty Start Date End Date Phuc Martines DO [address] [facility] [place] [address] PCP - General Family Medicine 11/09/15 Air Drier Relationship Specialty Start Date End Date Phuc Martines DO [address] [facility] [place] [address] PCP - General Family Medicine 11/09/15 Air Drier Relationship Specialty Start Date End Date Phuc Martines DO [address] [facility] [place] [address] PCP - General Family Medicine 11/09/15 Air Drier Relationship Specialty Start Date End Date Phuc Martines DO [address] [facility] [place] [address] PCP - General Family Medicine 11/09/15 Air Drier Relationship Specialty Start Date End Date Phuc Martines DO [address] [facility] [place] [address] PCP - General Family Medicine 11/09/15 Air Drier Relationship Specialty Start Date End Date Phuc Martines DO [address] [facility] [place] [address] PCP - General Family Medicine 11/09/15 Air Drier Relationship Specialty Start Date End Date Phuc Martines DO [address] [facility] [place] [address] PCP - General Family Medicine 11/09/15 Air Drier Relationship Specialty Start Date End Date Phuc Martines DO [address] [facility] [place] [address] PCP - General Family Medicine 11/09/15 Air Drier Relationship Specialty Start Date End Date Phuc Martines DO [address] [place] [address] PCP - General Family Medicine 11/09/15 Air Drier Relationship Specialty Start Date End Date Phuc Martines DO [address] [place] [address] PCP - General Family Medicine 11/09/15 Hodan Christine PA-C [address] [place] [address] Pulmonary and Critical Care Medicine 10/11/23 Air Drier Relationship Specialty Start Date End Date Phuc Martines DO [address] [place] [address] PCP - General Family Medicine 11/09/15 Hodan Christine PA-C [address] [place] [address] Pulmonary and Critical Care Medicine 10/11/23 Air Drier Relationship Specialty Start Date End Date Phuc Martines DO [address] [place] [address] PCP - General Family Medicine 11/09/15 Hodan Christine PA-C [address] [facility] [place] [address] Pulmonary and Critical Care Medicine 10/11/23 Air Drier Relationship Specialty Start Date End Date Phuc Martines DO [address] [place] [address] PCP - General Family Medicine 11/09/15 Hodan Christine PA-C [address] [place] [address] Pulmonary and Critical Care Medicine 10/11/23 Air Drier Relationship Specialty Start Date End Date Phuc Martines DO [address] [facility] [place] [address] PCP - General Family Medicine 11/09/15 Hodan Christine PA-C [address] [place] [place] [address] Pulmonary and Critical Care Medicine 10/11/23 Air Drier Relationship Specialty Start Date End Date Phuc Martines DO [address] [facility] [place] [address] PCP - General Family Medicine 11/09/15 Hodan Christine PA-C [address] [place] [address] Pulmonary and Critical Care Medicine 10/11/23 Air Drier Relationship Specialty Start Date End Date Phuc Martines DO [address] [facility] [place] [address] PCP - General Family Medicine 11/09/15 Hodan Christine PA-C [address] [place] [address] Pulmonary and Critical Care Medicine 10/11/23 Air Drier Relationship Specialty Start Date End Date Phuc Martines DO [address] [facility] [place] [address] PCP - General Family Medicine 11/09/15 Air Drier Relationship Specialty Start Date End Date Phuc Martines DO [address] [place] [address] PCP - General Family Medicine 11/09/15 Air Drier Relationship Specialty Start Date End Date Phuc Martines DO [address] [place] [address] PCP - General Family Medicine 11/09/15 Hodan Christine PA-C [address] [place] [address] Pulmonary and Critical Care Medicine 10/11/23 Air Drier Relationship Specialty Start Date End Date Phuc Martines DO [address] [place] [address] PCP - General Family Medicine 11/09/15 Hodan Christine PA-C [address] [place] [address] Pulmonary and Critical Care Medicine 10/11/23 Vicky Duong, JAKI.CULTURE MANAGER [address] [place] [address] Admin Dir Family Medicine 10/04/24 Pratibha King APRN.CULTURE MANAGER [address] [place] [address] Admin Dir Family Medicine 10/04/24 Air Drier Relationship Specialty Start Date End Date Phuc Martines DO [address] [place] [address] PCP - General Family Medicine 11/09/15 Hodan Christine PA-C [address] [place] [address] Pulmonary and Critical Care Medicine 10/11/23 Vicky Duong, AVIATION TACTICAL READINESS OFFICER.CULTURE MANAGER [address] [place] [address] [facility] 10/04/24 FernandoPratibha, AVIATION TACTICAL READINESS OFFICER.CULTURE MANAGER [address] [address] [facility] 10/04/24 Air Drier Relationship Specialty Start Date End Date Phuc Martines DO [address] [place] [address] PCP - General Family Medicine 11/09/15 Hodan Christine PA-C [address] [place] [address] Pulmonary and Critical Care Medicine 10/11/23 Vicky Duong, AVIATION TACTICAL READINESS OFFICER.CULTURE MANAGER [address] [place] [address] [facility] 10/04/24 FernandoPratibha, AVIATION TACTICAL READINESS OFFICER.CULTURE MANAGER [address] [place] [address] [facility] 10/04/24 Air Drier Relationship Specialty Start Date End Date Phuc Martines DO [address] [place] [address] PCP - General Family Medicine 11/09/15 Hodan Christine PA-C [address] [place] [address] Pulmonary and Critical Care Medicine 10/11/23 Vicky Duong, AVIATION TACTICAL READINESS OFFICER.CULTURE MANAGER [address] [place] [address] [facility] 10/04/24 FernandoPratibha, AVIATION TACTICAL READINESS OFFICER.CULTURE MANAGER [address] [place] [address] [facility] 10/04/24 Air Drier Relationship Specialty Start Date End Date Phuc Martines DO [address] [place] [address] PCP - General Family Medicine 11/09/15 Hodan Christine PA-C [address] [place] [address] Pulmonary and Critical Care Medicine 10/11/23 Vicky Duong, AVIATION TACTICAL READINESS OFFICER.CULTURE MANAGER [address] [place] [address] [facility] 10/04/24 FernandoPratibha, AVIATION TACTICAL READINESS OFFICER.CULTURE MANAGER [address] [facility] [place] [address] [facility] 10/04/24 Air Drier Relationship Specialty Start Date End Date Phuc Martines DO [address] [facility] [place] [address] PCP - General Family Medicine 11/09/15 Hodan Christine PA-C [address] [place] [address] Pulmonary and Critical Care Medicine 10/11/23 Vicky Duong, AVIATION TACTICAL READINESS OFFICER.CULTURE MANAGER [address] [place] [address] [facility] 10/04/24 FernandoPratibha, AVIATION TACTICAL READINESS OFFICER.CULTURE MANAGER [address] [place] [address] [facility] 10/04/24 Air Drier Relationship Specialty Start Date End Date Phuc Martines DO [address] [place] [address] PCP - General Family Medicine 11/09/15 Hodan Christine, LEAH-C [address] [place] [address] Pulmonary and Critical Care Medicine 10/11/23 Vicky Duong, AVIATION TACTICAL READINESS OFFICER.CULTURE MANAGER [address] [place] [address] [facility] 10/04/24 FernandoPratibha, AVIATION TACTICAL READINESS OFFICER.CULTURE MANAGER [address] [place] [address] [facility] 10/04/24 Air Drier Relationship Specialty Start Date End Date Phuc Martines DO [address] [facility] [place] [address] PCP - General Family Medicine 11/09/15 Hodan Christine PA-C [address] [place] [address] Pulmonary and Critical Care Medicine 10/11/23 Vicky Duong, AVIATION TACTICAL READINESS OFFICER.CULTURE MANAGER [address] [facility] [place] [address] [facility] 10/04/24 Pratibha King APRN.CULTURE MANAGER [address] [facility] [place] [address] [facility] 10/04/24 Air Drier Relationship Specialty Start Date End Date Phuc Martines DO [address] [facility] [place] [address] PCP - General Family Medicine 11/09/15 Hodan Christine, PA-C [address] [place] [address] Pulmonary and Critical Care Medicine 10/11/23 Vicky Duong, AVIATION TACTICAL READINESS OFFICER.CULTURE MANAGER [address] [facility] [place] [address] [facility] 10/04/24 FernandoPratibha, AVIATION TACTICAL READINESS OFFICER.CULTURE MANAGER [address] [facility] [place] [address] [facility] 10/04/24 Air Drier Relationship Specialty Start Date End Date Phuc Martines DO [address] [facility] [place] [address] PCP - General Family Medicine 11/09/15 Hodan Christine PA-C [address] [place] [address] Pulmonary and Critical Care Medicine 10/11/23 Pratibha King, AVIATION TACTICAL READINESS OFFICER.CULTURE MANAGER [address] [facility] [place] [address] [facility] 10/04/24 Air Drier Relationship Specialty Start Date End Date Phuc Martines DO [address] [facility] [place] [address] PCP - General Family Medicine 11/09/15 Hodan Christine PA-C [address] [place] [address] Pulmonary and Critical Care Medicine 10/11/23 [facility], AVIATION TACTICAL READINESS OFFICER.CULTURE MANAGER [address] [facility] [place] [address] [facility] 10/04/24 Air Drier Relationship Specialty Start Date End Date Phuc Martines DO [address] [facility] [place] [address] PCP - General Family Medicine 11/09/15 Hodan Christine PA-C [address] [place] [address] Pulmonary and Critical Care Medicine 10/11/23 [facility] RiverGloriaah, AVIATION TACTICAL READINESS OFFICER.CULTURE MANAGER [address] [facility] [place] [address] [facility] 10/04/24 Air Drier Relationship Specialty Start Date End Date Phuc Martines DO [address] [facility] [place] [address] PCP - General Family Medicine 11/09/15 Hodan Christine PA-C [address] [facility] [place] [address] Pulmonary and Critical Care Medicine 10/11/23 FernandoPratibha APRN.CULTURE MANAGER [address] [place] [address] Admin Dir Family Medicine 10/04/24 Team Status: Active Member Role Status Dates Dr. Phuc Martines DO Primary Care Provider Active Team Status: Inactive Member Role Status Dates Dr. Phuc Martines DO Primary Care Provider Active Start: February 19, 2025 End: February 23, 2025 Dr. Linwood Ivy DO Emergency Provider Active Start: February 19, 2025 End: February 23, 2025 Dr. Kym Norton MD Admit Provider Active Star t: February 19, 2025 End: February 23, 2025 Dr. Kym Norton MD Other Provider Active Star t: February 19, 2025 End: February 23, 2025 Dr. Yee Jones MD Attending Provider Active Start: February 19, 2025 End: February 23, 2025 Dr. Claudia Valerio DO Other Provider Active Start : February 19, 2025 End: February 23, 2025 Team Status: Active Member Role Status Dates Dr. Phuc Martines DO Primary Care Provider Active Start: February 20, 2025 Dr. Linwood Ivy DO Emergency Provider Active Start: February 20, 2025 Dr. Kym Norton MD Admit Provider Active Star t: February 20, 2025 Dr. Kym Norton MD Other Provider Active Star t: February 20, 2025 Dr. Claudia Valerio DO Attending Provider Active S tart: February 20, 2025 Dr. Claudia Valerio DO Other Provider Active Start : February 20, 2025 Team Status: Active Member Role Status Dates Dr. Phuc Martines DO Primary Care Provider Active Start: February 20, 2025 Dr. Mercy Purvis MD Attending Provider Active Start: February 20, 2025 Team Status: Active Member Role Status Dates Dr. Phuc Martines DO Primary Care Provider Active Start: February 21, 2025 Dr. Linwood Ivy DO Emergency Provider Active Start: February 21, 2025 Dr. Kym Norton MD Admit Provider Active Star t: February 21, 2025 Dr. Kym Norton MD Other Provider Active Star t: February 21, 2025 Dr. Claudia Valerio DO Attending Provider Active S tart: February 21, 2025 Dr. Claudia Valerio DO Other Provider Active Start : February 21, 2025 Team Status: Active Member Role Status Dates Dr. Phuc Martines DO Primary Care Provider Active Start: February 22, 2025 Dr. Linwood Ivy DO Emergency Provider Active Start: February 22, 2025 Dr. Kym Norton MD Admit Provider Active Star t: February 22, 2025 Dr. Kym Norton MD Other Provider Active Star t: February 22, 2025 Dr. Yee Jones MD Attending Provider Active Start: February 22, 2025 Dr. Yee Jones MD Other Provider Active St art: February 22, 2025 Dr. Claudia Valerio DO Other Provider Active Start : February 22, 2025 Team Status: Active Member Role Status Dates Dr. Phuc Martines DO Primary Care Provider Active Start: February 23, 2025 Dr. Linwood Ivy DO Emergency Provider Active Start: February 23, 2025 Dr. Kym Norton MD Admit Provider Active Star t: February 23, 2025 Dr. Kym Norton MD Other Provider Active Star t: February 23, 2025 Dr. Yee Jones MD Attending Provider Active Start: February 23, 2025 Dr. Yee Jones MD Other Provider Active St art: February 23, 2025 Dr. Claudia Valerio DO Other Provider Active Start : February 23, 2025 Air Drier Relationship Specialty Start Date End Date Phuc Martines DO [address] [place], [place] [address] PCP - General Family Medicine 11/09/15 Hodan Christine PAKikeC [address], [place] [address] Pulmonary and Critical Care Medicine 10/11/23 [facility] RiverPratibha, AVIATION TACTICAL READINESS OFFICER.CULTURE MANAGER [address] [place] [address] [facility] 10/04/24 Air Drier Relationship Specialty Start Date End Date Phuc Martines DO [address] [place] [address] PCP - General Family Medicine 11/09/15 Hodan Christine, PA-C [address] [place] [address] Pulmonary and Critical Care Medicine 10/11/23 FernandoPratibha, AVIATION TACTICAL READINESS OFFICER.CULTURE MANAGER [address] [place] [address] [facility] 10/04/24 Air Drier Relationship Specialty Start Date End Date Phuc Martines DO [address] [place] [address] PCP - General Family Medicine 11/09/15 Hodan Christine, PA-C [address] [place] [address] Pulmonary and Critical Care Medicine 10/11/23 [facility], AVIATION TACTICAL READINESS OFFICER.CULTURE MANAGER [address] [place] [address] [facility] 10/04/24 Air Drier Relationship Specialty Start Date End Date Phuc Martines DO [address] [place] [address] PCP - General Family Medicine 11/09/15 Hodan Christine PA-C [address] [place] [address] Pulmonary and Critical Care Medicine 10/11/23 [facility], AVIATION TACTICAL READINESS OFFICER.CULTURE MANAGER [address] [facility] [place] [address] [facility] 10/04/24 Air Drier Relationship Specialty Start Date End Date Phuc Martines DO [address] [facility] [place] [address] PCP - [facility] 11/09/15 Hodan Christine PA-C [address] [place] [address] Pulmonary and Critical Care Medicine 10/11/23 [facility], AVIATION TACTICAL READINESS OFFICER.CULTURE MANAGER [address] [facility] [place] [address] [facility] 10/04/24 Team Status: Inactive Member Role Status Dates Dr. Phuc Martines DO Primary Care Provider Active Start: March 30, 2025 End: March 30, 2025 Dr. Phuc Martines DO Referring Provider Active Start: March 30, 2025 End: March 30, 2025 Dr. Bryan Elena MD Attending Provider Active Start: March 30, 2025 End: March 30, 2025 Air Drier Relationship Specialty Start Date End Date Phuc Martines DO [address] [facility] [place] [address] PCP - [facility] 11/09/15 Hodan Christine PA-C [address] [place] [address] Pulmonary and Critical Care Medicine 10/11/23 Pratibha King, AVIATION TACTICAL READINESS OFFICER.CULTURE MANAGER [address] [place], [place] [address] [phone] [facility] 10/04/24 Terrie Robledo, AVIATION TACTICAL READINESS OFFICER.CULTURE MANAGER [address] [place], [place] [id number] [phone] [facility] 04/12/25 Air Drier Relationship Specialty Start Date End Date Phuc Martines DO [address] [place], [place] [address] [phone] PCP - General Family Medicine 11/09/15 Hodan Christine PA-C [address] [place], [place] [address] [phone] Pulmonary and Critical Care Medicine 10/11/23 Pratibha King, AVIATION TACTICAL READINESS OFFICER.CULTURE MANAGER [address] [place], [place] [address] [phone] [facility] 10/04/24 Terrie Robledo, AVIATION TACTICAL READINESS OFFICER.CULTURE MANAGER [address] [place], [place] [address] [facility] 04/12/25 Air Drier Relationship Specialty Start Date End Date Phuc Martines DO [address] [place], [place] [address] PCP - General Family Medicine 11/09/15 Hodan Christine PA-C [address] [facility] [place] [place], [place] [address] Pulmonary and Critical Care Medicine 10/11/23 Pratibha King, AVIATION TACTICAL READINESS OFFICER.CULTURE MANAGER [address] [place] [address] [facility] 10/04/24 Terrie Robledo APRN.CULTURE MANAGER [address] [place] [address] [facility] 04/12/25 FOR RECORDS PERTAINING TO PATIENTS WHO ARE OR HAVE BEEN ENROLLED IN A CHEMICAL DEPENDENCY/SUBSTANCEABUSE PROGRAM, SOME INFORMATION MAY BE OMITTED. This clinical summary was aggregated from multiple sources. Caution should be exercised in using it in the provision of clinical care. This summary normalizes information from multiple sources, and as a consequence, information in this document may materially change the coding, format and clinical context of patient data. In addition, data may be omitted in some cases. CLINICAL DECISIONS SHOULD BE BASED ON THE PRIMARY CLINICAL RECORDS. [facility] [employer] [facility]. provides no warranty or guarantee of the accuracy or completeness of information in this document.
[2025-04-23] MEDS: Diltiazem 125 MG in Dextrose 5%-Water (100mL Bag) 100 ML IV (22:02)
--- OUTSIDE RECORDS SUMMARY | 2025-04-23 22:09 | XMS RPT_ITS | CCD ---
Author Organization [facility] ion Partnership [facility] Care Team Providers Care Brush Painter Name Role Phone MARGOT GALVAN Unavailable Unavailable BRUNO, MARGOT T Unavailable Unavailable BRUNO MARGOT Yonatan Unavailable Unavailable Phuc Martines DO Primary Care Provider Phuc Martines DO Primary Care Provider Phuc Martines DO Primary Care Provider Phuc Martines DO Primary Care Provider Hodan Christine PA-C Unavailable Phuc Martines DO Primary Care Provider Ad SHERIFF OFFICER.Vicky GAN Unavailable Fernando SHERIFF OFFICER.Pratibha GAN Unavailable Dr. Phuc Martines DO Primary Care Provider Dr. Linwood Ivy DO Emergency Provider Dr. Kym Norton MD Admit Provider Dr. Kym Norton MD Other Provider Robert ARELLANO, Dr. Yee [...] sources) Naproxen; Translations: [NAPROXEN] Drug Allergy 05-31-2020 [facility] Work Phone: (2 sources) Ibuprofen Drug Allergy 02-19-2025 [facility] (1 source) Ibuprofen Drug Allergy 03-30-2025 [facility] Repository Medications Current Medications Medication Drug Class(es) [...] on above: Take 2 tablets by mo [facility] twice daily. mecobalamin 1 mg chewable [...] Comment on above: Take 1 tablet by [facility] once daily. mupirocin 0.02 mg/mg topical ointment (1 source) RNA Synthetase Inhibitor Antibacterial Start: 01-29-2024 End: 02-08-2024 mupirocin (BACTROBAN) 2 % ointment Indications: Skin infection Apply to affected area three times a day for 10 days. 22 g 0 01/29/2024 02/08/2024 Active Comment on above: Apply to affected ar ea three times a day for 10 days. nystatin 354162 unt/ml topical cream (20 sources) Polyene Antifungal [...] 05/01/2022 Discontinued Start: 04-17-2017 End: 02-19-2025 take 337431 [IU] by mouth four times daily Nystatin 500,000 UNIT/5 ML suspension Discontinued 140046 U PO 4 TIMES DAILY 1 April [...] nasal spray (20 sources) Start: Sodium Chloride (Lawndale Saline) 0.65 % aerosol,spray Active 1 NMA [...] Comment on above: Take 1 tablet by [facility] once daily. Beclomethasone Diprop Inhaler (2 [...] Comment on above: Take 1 capsule by [facility] three times daily as needed for cough. [...] Comment on above: Take 1 capsule by [facility] three times a day for 7 days. 30 actuat fluticasone furoate 0.1 mg/actuat / umeclidinium 0.0625 mg/actuat / vilanterol 0.025 mg/actuat dry powder inhaler (20 sources) Anticholinergic, Corticosteroid, beta2-Adrenergic Agonist Start: 12-03-2023 End: 12-25-2024 lpitpaiymto-fwakacrfs-tld anter (TRELEGY ELLIPTA) 100-62.5-25 mcg inhalation powder Indications: Chronic obstructive pulmonary disease, unspecified COPD type (HCC) USE 1 INHALATION DAILY INSTRUCTED 3 Each 3 11/27/2024 12/25/2024 Discontinued (Course of therapy completed) Start: 12-06-2021 End: 12-04-2022 yqghctawhau-btxvkfebp-bpkhrh er (TRELEGY ELLIPTA) 100-62.5-25 mcg inhalation powder [...] Comment on above: Take 1 capsule by [facility] once daily. ipratropium bromide 0.2 mg/ml inhalation [...] 2017 12:00am February 19, 2025 2:18pm Tiotropium [place] (Spiriva With Handihaler) 1 PUFF inhaler (2 sources) Start: End: take 1 puff(s) by inhalation once daily Tiotropium [place] (Spiriva With Handihaler) 1 PUFF inhaler Discontinued [...] llection technique or straight catheterization for???urine???collection. Normal [facility] Comment on above: Performed By: #### 3 024-7, 3051-0, 85630-3, 3016-3 #### [facility] CLIA [id number] [address] [place] [address] [place] CNOVon 04-20-2025 CNOV Office Visit (UCWSTR ) LISA LUCERO ([id number]) 1955 F Date Time Provider Department 04/20/25 9:45 AM DAMON EUGENE [facility] During your visit today, we recorded the following information about you: Temperature Pulse Respiration Blood pressure 98.4 degrees 94/minute 18/minute 132/80 Weight 117 kg Damon Eugene APRN.RAILWAY TRACK PLANT OPERATOR 04/20/2025 10:23 AM Signed [facility] [...] have progressively worsened. - Has seen Janette Buatista twice, who focused on blood pressure management. [...] week for further evaluation. and Recording using OpenROV software for draft documentation of the visit was discussed with the patient/authorized payroll representative; all questions welcomed and answered. Patient/authorized payroll representative agreed to proceed MDM Procedures Brandan [...] 10 capsuleRfl: 0 UA DIP, URINE (POC) [[id number]] Order #: [id number]. #:[id number] nystatin (MYCOSTATIN) creamApply to affected area two times a day for 14 days.Disp: 30 gRfl: 0 BACTERIAL CULTURE, URINE [SQURCUL] Order #: [id number]. #:[id number] Prescriptions as of 04/20/2025 - nitrofurantoin monohydrate [...] as ne (more content not included)... Normal [facility] UA DIP, URINE (POC)on 2024 BILIRUBIN UA (POCT) Small Abnormal Negative [facility] CLARITY UA (POCT) Turbid [facility] COLOR UA (POCT) Dark yellow [facility] GLUCOSE UA (POCT) Negative Negative mg/dL [facility] Hemoglobin Ql (U) Moderate Abnormal Negative [facility] Interpretation and review of laboratory results Abnormal [facility] KETONE UA (POCT) Trace Negative mg/dL [facility] LEUKOCYTES UA (POCT) Negative Negative [facility] NITRITE UA (POCT) Negative Negative [facility] PH UA (POCT) 6 4.5 - 8.0 [facility] Protein Ql (U) 30 mg/dL Abnormal Negative [facility] SPECIFIC GRAVITY UA (POCT) 1.015 1.005 - 1.030 [facility] UROBILINOGEN UA (POCT) 2 Abnormal Normal E.U./dL [facility] Location:[facility], [address], [place], [address] [facility] POINT OF CARE [facility] CNOVon 03-31-2025 CNOV Office Visit (FAMPWS ) SCITZLISA Mata ([id number]) 1955 F Date Time Provider Department 03/31/25 1:00 PM JANETTE DAMON During your visit today, we recorded the following information about you: Pulse Respiration Blood pressure Weight 91/minute 18/minute 124/82 119.1 kg Janette Damon APRN.RAILWAY TRACK PLANT OPERATOR 03/31/2025 1:06 PM Signed 03/31/2025 Patient presents with: BP Check: Had appointment with cardiology yesterday; [facility] Dr. Elena Recording using OpenROV software for draft documentation of the visit was discussed with the patient/authorized payroll representative; all questions welcomed and answered. Patient/authorized payroll representative agreed to proceed SUBJECTIVE: This is a 69 year old that is here today for Above Complaints.. Atrial Flutter: - Recent consultation with Dr. Elena, who referred her to Dr. Marcos Santos, an superintendent plant protection, for potential ablation. - Dr. Elena indicated [...] Atrial flutter (HCC) CHF (congestive heart failure) ([facility]) Chronic hypoxemic respiratory failure (HCC) COPD (chronic obstructive pulmonary disease) ([facility]) 02/03/2010 Coronary artery disease No [place], CHF. No heart cath. Diverticulosis of colon [...] hours as needed for wheezing/shortness of breath. fxtlehrapgx-qnbuplnfw-womipnc r (TRELEGY ELLIPTA) 200-62.5-25 mcg inhalation powder [...] Discussion Nev (more content not included)... Normal [facility] Cardiology Visit Reporton Cardiology Visit Report [facility] [address] [place] [address] OFFICE VISIT Date of Service: 03/30/25 MR#: [id number] Acct: [id number] Name: LISA LUCERO Rep #: [id number] : 1955 Provider: Dr. Bryan osei MD Age/Sex: 69/F Location: [facility] Status: Signed HPI HPI History of Present Illness Details: Patient comes today as a new patient visit. She is a pleasant 69-year-old white female who here for new onset atrial flutter. Patient was evaluated emergency department at [facility] February 19, 2025. She had been noticing [...] to 50%. An echo done at the [facility] had an EF of 60% from 2022. [...] Rate (L/min) 2 Intake Visit Reasons: S/P [facility] 02/23 (AF) Hat Former Required: No Accompanied by: Self Is patient [...] PRN dry 0 02/19/25 03/30/25 History aerosol (Lawndale Saline) nasal passages triamcinolone acetonide 0.5 % [...] you fallen in (more content not included)... [facility] CNOVon 03-10-2025 CNOV Office Visit (PULMWS ) LISA LUCERO ([id number]) 1955 F Date Time Provider Department 03/10/25 1:00 PM LISA GOODMAN During your visit today, we recorded the following information about you: MarcialLisa APRN.ELVIA 03/10/2025 1:47 PM Signed Pulmonary Medicine Patients name: Lsia Palumbo PCP: Phuc Martines DO CC: concern for ROXY HPI: Lisa Lucero is a 69 year old female former 88-nrux-nuaz smoker, quitting in 2008 with PMH significant [...] that time. She was just hospitalized at [facility] 02/19 - 02/23 for SOB/leg swelling in [...] Atrial flutter (HCC) CHF (congestive heart failure) ([facility]) Chronic hypoxemic respiratory failure (HCC) COPD (chronic obstructive pulmonary disease) ([facility]) 02/03/2010 Coronary artery disease No [place], CHF. No heart cath. Diverticulosis of colon [...] ELLIPTA 200-62.5-25 mcg inhalation powder Generic drug: oxqencrpnrl-eeiveubmi-ywlmqxp r Inhale 1 Puff as instructed once [...] 3 LungR (more content not included)... Normal [facility] Basic Metabolic Profile (BMP )on 03-02-2025 BUN Normal -19 [facility] Comment on above: Result Comment: Canc elled via OM: Order cancelled - Patient discharged Performed By: #### L 500.2500, L100.0100 #### [facility] [address] [place], [address] BUN/CRE Normal 10-20 [facility] Comment on above: Result Comment: Canc elled via OM: Order cancelled - Patient discharged Performed By: #### L 500.2500, L100.0100 #### [facility] [address] [facility] [address] Calcium Normal 7.6-11.0 [facility] Comment on above: Result Comment: Canc elled via OM: Order cancelled - Patient discharged Performed By: #### L 500.2500, L100.0100 #### [facility] [address] [place], [address] CL Normal 98-108 [facility] Comment on above: Result Comment: Canc elled via OM: Order cancelled - Patient discharged Performed By: #### L 500.2500, L100.0100 #### [facility] [address] [place], [address] CO2 Normal 21.0-32.0 [facility] Comment on above: Result Comment: Canc elled via OM: Order cancelled - Patient discharged Performed By: #### L 500.2500, L100.0100 #### [facility] [address] [place], [address] CREAT,SERUM Normal 0.70-1.20 [facility] Comment on above: Result Comment: Canc elled via OM: Order cancelled - Patient discharged Performed By: #### L 500.2500, L100.0100 #### [facility] [address] [place], [address] eGFR Normal >60 [facility] Comment on above: Result Comment: Canc elled via OM: Order cancelled - Patient discharged Performed By: #### L 500.2500, L100.0100 #### [facility] [address] [place], [address] GAP Normal 5-15 [facility] Comment on above: Result Comment: Canc elled via OM: Order cancelled - Patient discharged Performed By: #### L 500.2500, L100.0100 #### [facility] [address] [place], [address] GLU Normal 70-99 [facility] Comment on above: Result Comment: Canc elled via OM: Order cancelled - Patient discharged Performed By: #### L 500.2500, L100.0100 #### [facility] [address] [place], [address] Potassium Normal 3.3-5.1 [facility] Comment on above: Result Comment: Canc elled via OM: Order cancelled - Patient discharged Performed By: #### L 500.2500, L100.0100 #### [facility] [address] [place], [address] Basic Metabolic Profile (BMP) Normal 133-145 [facility] Comment on above: Result Comment: Canc elled via OM: Order cancelled - Patient discharged Performed By: #### L 500.2500, L100.0100 #### [facility] [address] [place], [address] CBC W/Diff, Automatedon 05-0 -2024 Absolute Neut Normal 2.0-7.7 [facility] Comment on above: Result Comment: Canc elled via OM: Order cancelled - Patient discharged Performed By: #### L 500.2500, L100.0100 #### [facility] [address] [place], [address] HCT Normal 37-47 [facility] Comment on above: Result Comment: Canc elled via OM: Order cancelled - Patient discharged Performed By: #### L 500.2500, L100.0100 #### [facility] [address] [place], [address] HGB Normal 12.0-15.0 [facility] Comment on above: Result Comment: Canc elled via OM: Order cancelled - Patient discharged Performed By: #### L 500.2500, L100.0100 #### [facility] [address] [place], [address] MCH Normal 27.0-32.0 [facility] Comment on above: Result Comment: Canc elled via OM: Order cancelled - Patient discharged Performed By: #### L 500.2500, L100.0100 #### [facility] [address] [place], [address] MCHC Normal 32-36 [facility] Comment on above: Result Comment: Canc elled via OM: Order cancelled - Patient discharged Performed By: #### L 500.2500, L100.0100 #### [facility] [address] [place], [address] MCV Normal 81-99 [facility] Comment on above: Result Comment: Canc elled via OM: Order cancelled - Patient discharged Performed By: #### L 500.2500, L100.0100 #### [facility] [address] [place], [address] NEUT% Normal 47-70 [facility] Comment on above: Result Comment: Canc elled via OM: Order cancelled - Patient discharged Performed By: #### L 500.2500, L100.0100 #### [facility] [address] [place], [address] PLT Normal 150-450 [facility] Comment on above: Result Comment: Canc elled via OM: Order cancelled - Patient discharged Performed By: #### L 500.2500, L100.0100 #### [facility] [address] [place], [address] RBC Normal 4.2-5.4 [facility] Comment on above: Result Comment: Canc elled via OM: Order cancelled - Patient discharged Performed By: #### L 500.2500, L100.0100 #### [facility] [address] [place], [address] RDW CV Normal 11.6-14.6 [facility] Comment on above: Result Comment: Canc elled via OM: Order cancelled - Patient discharged Performed By: #### L 500.2500, L100.0100 #### [facility] [address] [place], [address] RDW SD Normal 35.1-43.9 [facility] Comment on above: Result Comment: Canc elled via OM: Order cancelled - Patient discharged Performed By: #### L 500.2500, L100.0100 #### [facility] [address] [place], [address] WBC Normal 4.4-11.0 [facility] Comment on above: Result Comment: Canc elled via OM: Order cancelled - Patient discharged Performed By: #### L 500.2500, L100.0100 #### [facility] [address] [place], [address] Basic Metabolic Profile (BMP )on 03-01-2025 BUN Normal 4-19 [facility] Comment on above: Result Comment: Canc elled via OM: Order cancelled - Patient discharged Performed By: #### L 500.2500, L100.0100 #### [facility] [address] [place], [address] BUN/CRE Normal 10-20 [facility] Comment on above: Result Comment: Canc elled via OM: Order cancelled - Patient discharged Performed By: #### L 500.2500, L100.0100 #### [facility] [address] [place], [address] Calcium Normal 7.6-11.0 [facility] Comment on above: Result Comment: Canc elled via OM: Order cancelled - Patient discharged Performed By: #### L 500.2500, L100.0100 #### [facility] [address] [place], [address] CL Normal 98-108 [facility] Comment on above: Result Comment: Canc elled via OM: Order cancelled - Patient discharged Performed By: #### L 500.2500, L100.0100 #### [facility] [address] [place], [address] CO2 Normal 21.0-32.0 [facility] Comment on above: Result Comment: Canc elled via OM: Order cancelled - Patient discharged Performed By: #### L 500.2500, L100.0100 #### [facility] [address] [place], [address] CREAT,SERUM Normal 0.70-1.20 [facility] Comment on above: Result Comment: Canc elled via OM: Order cancelled - Patient discharged Performed By: #### L 500.2500, L100.0100 #### [facility] [address] [place], [address] eGFR Normal >60 [facility] Comment on above: Result Comment: Canc elled via OM: Order cancelled - Patient discharged Performed By: #### L 500.2500, L100.0100 #### [facility] [address] [place], [address] GAP Normal 5-15 [facility] Comment on above: Result Comment: Canc elled via OM: Order cancelled - Patient discharged Performed By: #### L 500.2500, L100.0100 #### [facility] [address] [place], [address] GLU Normal 70-99 [facility] Comment on above: Result Comment: Canc elled via OM: Order cancelled - Patient discharged Performed By: #### L 500.2500, L100.0100 #### [facility] [address] [place], [address] Potassium Normal 3.3-5.1 [facility] Comment on above: Result Comment: Canc elled via OM: Order cancelled - Patient discharged Performed By: #### L 500.2500, L100.0100 #### [facility] [address] [place], [address] Basic Metabolic Profile (BMP) Normal 133-145 [facility] Comment on above: Result Comment: Canc elled via OM: Order cancelled - Patient discharged Performed By: #### L 500.2500, L100.0100 #### [facility] [address] [place], [address] CBC W/Diff, Automatedon 05-0 5-2024 Absolute Neut Normal 2.0-7.7 [facility] Comment on above: Result Comment: Canc elled via OM: Order cancelled - Patient discharged Performed By: #### L 500.2500, L100.0100 #### [facility] [address] [place], [address] HCT Normal 37-47 [facility] Comment on above: Result Comment: Canc elled via OM: Order cancelled - Patient discharged Performed By: #### L 500.2500, L100.0100 #### [facility] [address] [place], [address] HGB Normal 12.0-15.0 [facility] Comment on above: Result Comment: Canc elled via OM: Order cancelled - Patient discharged Performed By: #### L 500.2500, L100.0100 #### [facility] [address] [place], [address] MCH Normal 27.0-32.0 [facility] Comment on above: Result Comment: Canc elled via OM: Order cancelled - Patient discharged Performed By: #### L 500.2500, L100.0100 #### [facility] [address] [place], [address] MCHC Normal 32-36 [facility] Comment on above: Result Comment: Canc elled via OM: Order cancelled - Patient discharged Performed By: #### L 500.2500, L100.0100 #### [facility] [address] [place], [address] MCV Normal 81-99 [facility] Comment on above: Result Comment: Canc elled via OM: Order cancelled - Patient discharged Performed By: #### L 500.2500, L100.0100 #### [facility] [address] [place], [address] NEUT% Normal 47-70 [facility] Comment on above: Result Comment: Canc elled via OM: Order cancelled - Patient discharged Performed By: #### L 500.2500, L100.0100 #### [facility] [address] [place], [address] PLT Normal 150-450 [facility] Comment on above: Result Comment: Canc elled via OM: Order cancelled - Patient discharged Performed By: #### L 500.2500, L100.0100 #### [facility] [address] [place], [address] RBC Normal 4.2-5.4 [facility] Comment on above: Result Comment: Canc elled via OM: Order cancelled - Patient discharged Performed By: #### L 500.2500, L100.0100 #### [facility] [address] [place], [address] RDW CV Normal 11.6-14.6 [facility] Comment on above: Result Comment: Canc elled via OM: Order cancelled - Patient discharged Performed By: #### L 500.2500, L100.0100 #### [facility] [address] [place], [address] RDW SD Normal 35.1-43.9 [facility] Comment on above: Result Comment: Canc elled via OM: Order cancelled - Patient discharged Performed By: #### L 500.2500, L100.0100 #### [facility] [address] [place], [address] WBC Normal 4.4-11.0 [facility] Comment on above: Result Comment: Canc elled via OM: Order cancelled - Patient discharged Performed By: #### L 500.2500, L100.0100 #### [facility] [address] [place], [address] CNOVon 03-01-2025 [facility] LISA LUCERO ([id number]) 1955 F Date Time Provider Department 03/01/25 12:20 PM JANETTE DAMON During your visit today, we recorded the following information about you: Pulse Respiration Blood pressure Weight 76/minute 18/minute 116/70 118.9 kg Janette Damon APRN.CNP 03/01/2025 2:15 PM Signed 02/26/2025 Patient presents with: Hospital F/U: [facility] COPD SUBJECTIVE: This is a 69 year old that is here today for Above Complaints. HOSPITAL/ER FOLLOW UP: Reason for visit: SOB, and leg swelling Which facility: [facility] Date of visit: 02/19/2025-02/23/2025 Diagnosis: COPD, atrial [...] as yet. Was wanting to stay within [facility] system. Denies dyspnea, orthopnea wheezing, chest pain, palpitations or leg swelling. Follows with F transition lead. Last appointment on 12/25/2024. Uses 3/4L/NC at rest and 6 L/NC with exertion. She feels her breathing as at her baseline. ER records reviewed PAST MEDICAL HISTORY Diagnosis Date Chronic hypoxemic respiratory failure (HCC) COPD (chronic obstructive pulmonary disease) (HCC) 02/03/2010 Coronary artery disease No [place], CHF. No heart cath. Diverticulosis of colon [...] hours as needed for wheezing/shortness of breath. zhdzpcnbwlh-dbymajptl-dzhigyl r (TRELEGY ELLIPTA) 200-62.5-25 mcg inhalation powder [...] 11/09/2025 M (more content not included)... Normal [facility] Basic Metabolic Profile (BMP )on 02-28-2025 BUN Normal 4-19 [facility] Comment on above: Result Comment: Canc elled via OM: Order cancelled - Patient discharged Performed By: #### L 500.2500, L100.0100 #### [facility] [address] [place], [address] BUN/CRE Normal 10-20 [facility] Comment on above: Result Comment: Canc elled via OM: Order cancelled - Patient discharged Performed By: #### L 500.2500, L100.0100 #### [facility] [address] [place], [address] Calcium Normal 7.6-11.0 [facility] [facility] Comment on above: Result Comment: Canc elled via OM: Order cancelled - Patient discharged Performed By: #### L 500.2500, L100.0100 #### [facility] [address] [place], [address] CL Normal 98-108 [facility] Comment on above: Result Comment: Canc elled via OM: Order cancelled - Patient discharged Performed By: #### L 500.2500, L100.0100 #### [facility] [address] [place], [address] CO2 Normal 21.0-32.0 [facility] Comment on above: Result Comment: Canc elled via OM: Order cancelled - Patient discharged Performed By: #### L 500.2500, L100.0100 #### [facility] [address] [place], [address] CREAT,SERUM Normal 0.70-1.20 [facility] Comment on above: Result Comment: Canc elled via OM: Order cancelled - Patient discharged Performed By: #### L 500.2500, L100.0100 #### [facility] [address] [place], [address] eGFR Normal >60 [facility] Comment on above: Result Comment: Canc elled via OM: Order cancelled - Patient discharged Performed By: #### L 500.2500, L100.0100 #### [facility] [address] [place], [address] GAP Normal 5-15 [facility] Comment on above: Result Comment: Canc elled via OM: Order cancelled - Patient discharged Performed By: #### L 500.2500, L100.0100 #### [facility] [address] [place], [address] GLU Normal 70-99 [facility] Comment on above: Result Comment: Canc elled via OM: Order cancelled - Patient discharged Performed By: #### L 500.2500, L100.0100 #### [facility] [address] [place], [address] Potassium Normal 3.3-5.1 [facility] Comment on above: Result Comment: Canc elled via OM: Order cancelled - Patient discharged Performed By: #### L 500.2500, L100.0100 #### [facility] [address] [place], [address] Basic Metabolic Profile (BMP) Normal 133-145 [facility] Comment on above: Result Comment: Canc elled via OM: Order cancelled - Patient discharged Performed By: #### L 500.2500, L100.0100 #### [facility] [address] [place], [address] CBC W/Diff, Automatedon 05-0 Absolute Neut Normal 2.0-7.7 [facility] Comment on above: Result Comment: Canc elled via OM: Order cancelled - Patient discharged Performed By: #### L 500.2500, L100.0100 #### [facility] [address] [place], [address] HCT Normal 37-47 [facility] Comment on above: Result Comment: Canc elled via OM: Order cancelled - Patient discharged Performed By: #### L 500.2500, L100.0100 #### [facility] [address] [place], [address] HGB Normal 12.0-15.0 [facility] Comment on above: Result Comment: Canc elled via OM: Order cancelled - Patient discharged Performed By: #### L 500.2500, L100.0100 #### [facility] [address] [place], [address] MCH Normal 27.0-32.0 [facility] Comment on above: Result Comment: Canc elled via OM: Order cancelled - Patient discharged Performed By: #### L 500.2500, L100.0100 #### [facility] [address] [place], [address] MCHC Normal 32-36 [facility] Comment on above: Result Comment: Canc elled via OM: Order cancelled - Patient discharged Performed By: #### L 500.2500, L100.0100 #### [facility] [address] [place], [address] MCV Normal 81-99 [facility] Comment on above: Result Comment: Canc elled via OM: Order cancelled - Patient discharged Performed By: #### L 500.2500, L100.0100 #### [facility] [address], [address] NEUT% Normal 47-70 [facility] Comment on above: Result Comment: Canc elled via OM: Order cancelled - Patient discharged Performed By: #### L 500.2500, L100.0100 #### [facility] [address] [place], [address] PLT Normal 150-450 [facility] Comment on above: Result Comment: Canc elled via OM: Order cancelled - Patient discharged Performed By: #### L 500.2500, L100.0100 #### [facility] [address] [place], [address] RBC Normal 4.2-5.4 [facility] Comment on above: Result Comment: Canc elled via OM: Order cancelled - Patient discharged Performed By: #### L 500.2500, L100.0100 #### [facility] [address] [place], [address] RDW CV Normal 11.6-14.6 [facility] Comment on above: Result Comment: Canc elled via OM: Order cancelled - Patient discharged Performed By: #### L 500.2500, L100.0100 #### [facility] [address] [place], [address] RDW SD Normal 35.1-43.9 [facility] Comment on above: Result Comment: Canc elled via OM: Order cancelled - Patient discharged Performed By: #### L 500.2500, L100.0100 #### [facility] [address], [address] WBC Normal 4.4-11.0 [facility] Comment on above: Result Comment: Canc elled via OM: Order cancelled - Patient discharged Performed By: #### L 500.2500, L100.0100 #### [facility] [address] [place], [address] Basic Metabolic Profile (BMP )on 02-27-2025 BUN Normal 4-19 [facility] Comment on above: Result Comment: Canc elled via OM: Order cancelled - Patient discharged Performed By: #### L 500.2500, L100.0100 #### [facility] [address] [place], [address] BUN/CRE Normal 10-20 [facility] Comment on above: Result Comment: Canc elled via OM: Order cancelled - Patient discharged Performed By: #### L 500.2500, L100.0100 #### [facility] [address] [place], [address] Calcium Normal 7.6-11.0 [facility] Comment on above: Result Comment: Canc elled via OM: Order cancelled - Patient discharged Performed By: #### L 500.2500, L100.0100 #### [facility] [address] [place], [address] CL Normal 98-108 [facility] Comment on above: Result Comment: Canc elled via OM: Order cancelled - Patient discharged Performed By: #### L 500.2500, L100.0100 #### [facility] [address] [place], [address] CO2 Normal 21.0-32.0 [facility] Comment on above: Result Comment: Canc elled via OM: Order cancelled - Patient discharged Performed By: #### L 500.2500, L100.0100 #### [facility] [address] [place], [address] CREAT,SERUM Normal 0.70-1.20 [facility] Comment on above: Result Comment: Canc elled via OM: Order cancelled - Patient discharged Performed By: #### L 500.2500, L100.0100 #### [facility] [address] [place], [address] eGFR Normal >60 [facility] Comment on above: Result Comment: Canc elled via OM: Order cancelled - Patient discharged Performed By: #### L 500.2500, L100.0100 #### [facility] [address] [place], [address] GAP Normal 5-15 [facility] Comment on above: Result Comment: Canc elled via OM: Order cancelled - Patient discharged Performed By: #### L 500.2500, L100.0100 #### [facility] [address] [place], [address] GLU Normal 70-99 [facility] Comment on above: Result Comment: Canc elled via OM: Order cancelled - Patient discharged Performed By: #### L 500.2500, L100.0100 #### [facility] [address] [place], [address] Potassium Normal 3.3-5.1 [facility] Comment on above: Result Comment: Canc elled via OM: Order cancelled - Patient discharged Performed By: #### L 500.2500, L100.0100 #### [facility] [address] [place], [address] Basic Metabolic Profile (BMP) Normal 133-145 [facility] Comment on above: Result Comment: Canc elled via OM: Order cancelled - Patient discharged Performed By: #### L 500.2500, L100.0100 #### [facility] [address] [place], [address] CBC W/Diff, Automatedon 05-0 -2024 Absolute Neut Normal 2.0-7.7 [facility] Comment on above: Result Comment: Canc elled via OM: Order cancelled - Patient discharged Performed By: #### L 500.2500, L100.0100 #### [facility] [address] [place], [address] HCT Normal 37-47 [facility] Comment on above: Result Comment: Canc elled via OM: Order cancelled - Patient discharged Performed By: #### L 500.2500, L100.0100 #### [facility] [address] [place], [address] HGB Normal 12.0-15.0 [facility] Comment on above: Result Comment: Canc elled via OM: Order cancelled - Patient discharged Performed By: #### L 500.2500, L100.0100 #### [facility] [address] [place], [address] MCH Normal 27.0-32.0 [facility] Comment on above: Result Comment: Canc elled via OM: Order cancelled - Patient discharged Performed By: #### L 500.2500, L100.0100 #### [facility] [address], [address] MCHC Normal 32-36 [facility] Comment on above: Result Comment: Canc elled via OM: Order cancelled - Patient discharged Performed By: #### L 500.2500, L100.0100 #### [facility] [address] [place], [address] MCV Normal 81-99 [facility] Comment on above: Result Comment: Canc elled via OM: Order cancelled - Patient discharged Performed By: #### L 500.2500, L100.0100 #### [facility] [address], [address] NEUT% Normal 47-70 [facility] Comment on above: Result Comment: Canc elled via OM: Order cancelled - Patient discharged Performed By: #### L 500.2500, L100.0100 #### [facility] [address] [place], [address] PLT Normal 150-450 [facility] Comment on above: Result Comment: Canc elled via OM: Order cancelled - Patient discharged Performed By: #### L 500.2500, L100.0100 #### [facility] [address] [place], [address] RBC Normal 4.2-5.4 [facility] Comment on above: Result Comment: Canc elled via OM: Order cancelled - Patient discharged Performed By: #### L 500.2500, L100.0100 #### [facility] [address] [place], [address] RDW CV Normal 11.6-14.6 [facility] Comment on above: Result Comment: Canc elled via OM: Order cancelled - Patient discharged Performed By: #### L 500.2500, L100.0100 #### [facility] [address] [place], [address] RDW SD Normal 35.1-43.9 [facility] Comment on above: Result Comment: Canc elled via OM: Order cancelled - Patient discharged Performed By: #### L 500.2500, L100.0100 #### [facility] [address] [place], [address] WBC Normal 4.4-11.0 [facility] Comment on above: Result Comment: Canc elled via OM: Order cancelled - Patient discharged Performed By: #### L 500.2500, L100.0100 #### [facility] [address] [place], [address] Basic Metabolic Profile (BMP )on 02-26-2025 BUN Normal 4-19 [facility] Comment on above: Result Comment: Canc elled via OM: Order cancelled - Patient discharged Performed By: #### L 500.2500, L100.0100 #### [facility] [address] [place], [address] BUN/CRE Normal 10-20 [facility] Comment on above: Result Comment: Canc elled via OM: Order cancelled - Patient discharged Performed By: #### L 500.2500, L100.0100 #### [facility] [address] [place], [address] Calcium Normal 7.6-11.0 [facility] Comment on above: Result Comment: Canc elled via OM: Order cancelled - Patient discharged Performed By: #### L 500.2500, L100.0100 #### [facility] [address] [place], [address] CL Normal 98-108 [facility] Comment on above: Result Comment: Canc elled via OM: Order cancelled - Patient discharged Performed By: #### L 500.2500, L100.0100 #### [facility] [address] [place], [address] CO2 Normal 21.0-32.0 [facility] Comment on above: Result Comment: Canc elled via OM: Order cancelled - Patient discharged Performed By: #### L 500.2500, L100.0100 #### [facility] [address] [place], [address] CREAT,SERUM Normal 0.70-1.20 [facility] Comment on above: Result Comment: Canc elled via OM: Order cancelled - Patient discharged Performed By: #### L 500.2500, L100.0100 #### [facility] [address] [place], [address] eGFR Normal >60 [facility] Comment on above: Result Comment: Canc elled via OM: Order cancelled - Patient discharged Performed By: #### L 500.2500, L100.0100 #### [facility] [address] [place], [address] GAP Normal 5-15 [facility] Comment on above: Result Comment: Canc elled via OM: Order cancelled - Patient discharged Performed By: #### L 500.2500, L100.0100 #### [facility] [address] [place], [address] GLU Normal 70-99 [facility] Comment on above: Result Comment: Canc elled via OM: Order cancelled - Patient discharged Performed By: #### L 500.2500, L100.0100 #### [facility] [address] [place], [address] Potassium Normal 3.3-5.1 [facility] Comment on above: Result Comment: Canc elled via OM: Order cancelled - Patient discharged Performed By: #### L 500.2500, L100.0100 #### [facility] [address] [place], [address] Basic Metabolic Profile (BMP) Normal 133-145 [facility] Comment on above: Result Comment: Canc elled via OM: Order cancelled - Patient discharged Performed By: #### L 500.2500, L100.0100 #### [facility] [address] [place], [address] CBC W/Diff, Automatedon 05-0 2-2024 Absolute Neut Normal 2.0-7.7 [facility] Comment on above: Result Comment: Canc elled via OM: Order cancelled - Patient discharged Performed By: #### L 500.2500, L100.0100 #### [facility] [address] [place], [address] HCT Normal 37-47 [facility] Comment on above: Result Comment: Canc elled via OM: Order cancelled - Patient discharged Performed By: #### L 500.2500, L100.0100 #### [facility] [address] [place], [address] HGB Normal 12.0-15.0 [facility] Comment on above: Result Comment: Canc elled via OM: Order cancelled - Patient discharged Performed By: #### L 500.2500, L100.0100 #### [facility] [address] [place], [address] MCH Normal 27.0-32.0 [facility] Comment on above: Result Comment: Canc elled via OM: Order cancelled - Patient discharged Performed By: #### L 500.2500, L100.0100 #### [facility] [address] [place], [address] MCHC Normal 32-36 [facility] Comment on above: Result Comment: Canc elled via OM: Order cancelled - Patient discharged Performed By: #### L 500.2500, L100.0100 #### [facility] [address] [place], [address] MCV Normal 81-99 [facility] Comment on above: Result Comment: Canc elled via OM: Order cancelled - Patient discharged Performed By: #### L 500.2500, L100.0100 #### [facility] [address] [place], [address] NEUT% Normal 47-70 [facility] Comment on above: Result Comment: Canc elled via OM: Order cancelled - Patient discharged Performed By: #### L 500.2500, L100.0100 #### [facility] [address] [place], [address] PLT Normal 150-450 [facility] Comment on above: Result Comment: Canc elled via OM: Order cancelled - Patient discharged Performed By: #### L 500.2500, L100.0100 #### [facility] [address] [place], [address] RBC Normal 4.2-5.4 [facility] Comment on above: Result Comment: Canc elled via OM: Order cancelled - Patient discharged Performed By: #### L 500.2500, L100.0100 #### [facility] [address] [place], [address] RDW CV Normal 11.6-14.6 [facility] Comment on above: Result Comment: Canc elled via OM: Order cancelled - Patient discharged Performed By: #### L 500.2500, L100.0100 #### [facility] [address] [place], [address] RDW SD Normal 35.1-43.9 [facility] Comment on above: Result Comment: Canc elled via OM: Order cancelled - Patient discharged Performed By: #### L 500.2500, L100.0100 #### [facility] [address] [place], [address] WBC Normal 4.4-11.0 [facility] Comment on above: Result Comment: Canc elled via OM: Order cancelled - Patient discharged Performed By: #### L 500.2500, L100.0100 #### [facility] [address] [place], [address] Basic Metabolic Profile (BMP )on 02-25-2025 BUN Normal 4-19 [facility] Comment on above: Result Comment: Canc elled via OM: Order cancelled - Patient discharged Performed By: #### L 500.2500, L100.0100 #### [facility] [address] [place], [address] BUN/CRE Normal 10-20 [facility] Comment on above: Result Comment: Canc elled via OM: Order cancelled - Patient discharged Performed By: #### L 500.2500, L100.0100 #### [facility] [address] [place], [address] Calcium Normal 7.6-11.0 [facility] Comment on above: Result Comment: Canc elled via OM: Order cancelled - Patient discharged Performed By: #### L 500.2500, L100.0100 #### [facility] [address] [place], [address] CL Normal 98-108 [facility] Comment on above: Result Comment: Canc elled via OM: Order cancelled - Patient discharged Performed By: #### L 500.2500, L100.0100 #### [facility] [address] [place], [address] CO2 Normal 21.0-32.0 [facility] Comment on above: Result Comment: Canc elled via OM: Order cancelled - Patient discharged Performed By: #### L 500.2500, L100.0100 #### [facility] [address] [place], [address] CREAT,SERUM Normal 0.70-1.20 [facility] Comment on above: Result Comment: Canc elled via OM: Order cancelled - Patient discharged Performed By: #### L 500.2500, L100.0100 #### [facility] [address] [place], [address] eGFR Normal >60 [facility] Comment on above: Result Comment: Canc elled via OM: Order cancelled - Patient discharged Performed By: #### L 500.2500, L100.0100 #### [facility] [address] [place], [address] GAP Normal 5-15 [facility] Comment on above: Result Comment: Canc elled via OM: Order cancelled - Patient discharged Performed By: #### L 500.2500, L100.0100 #### [facility] [address] [place], [address] GLU Normal 70-99 [facility] Comment on above: Result Comment: Canc elled via OM: Order cancelled - Patient discharged Performed By: #### L 500.2500, L100.0100 #### [facility] [address] [place], [address] Potassium Normal 3.3-5.1 [facility] Comment on above: Result Comment: Canc elled via OM: Order cancelled - Patient discharged Performed By: #### L 500.2500, L100.0100 #### [facility] [address] [place], [address] Basic Metabolic Profile (BMP) Normal 133-145 [facility] Comment on above: Result Comment: Canc elled via OM: Order cancelled - Patient discharged Performed By: #### L 500.2500, L100.0100 #### [facility] [address] [place], [address] CBC W/Diff, Automatedon 05-0 -2024 Absolute Neut Normal 2.0-7.7 [facility] Comment on above: Result Comment: Canc elled via OM: Order cancelled - Patient discharged Performed By: #### L 500.2500, L100.0100 #### [facility] [address] [place], [address] HCT Normal 37-47 [facility] Comment on above: Result Comment: Canc elled via OM: Order cancelled - Patient discharged Performed By: #### L 500.2500, L100.0100 #### [facility] [address] [place], [address] HGB Normal 12.0-15.0 [facility] Comment on above: Result Comment: Canc elled via OM: Order cancelled - Patient discharged Performed By: #### L 500.2500, L100.0100 #### [facility] [address] [place], [address] MCH Normal 27.0-32.0 [facility] Comment on above: Result Comment: Canc elled via OM: Order cancelled - Patient discharged Performed By: #### L 500.2500, L100.0100 #### [facility] [address] [place], [address] MCHC Normal 32-36 [facility] Comment on above: Result Comment: Canc elled via OM: Order cancelled - Patient discharged Performed By: #### L 500.2500, L100.0100 #### [facility] [address] [place], [address] MCV Normal 81-99 [facility] Comment on above: Result Comment: Canc elled via OM: Order cancelled - Patient discharged Performed By: #### L 500.2500, L100.0100 #### [facility] [address] [place], [address] NEUT% Normal 47-70 [facility] Comment on above: Result Comment: Canc elled via OM: Order cancelled - Patient discharged Performed By: #### L 500.2500, L100.0100 #### [facility] [address] [place], [address] PLT Normal 150-450 [facility] Comment on above: Result Comment: Canc elled via OM: Order cancelled - Patient discharged Performed By: #### L 500.2500, L100.0100 #### [facility] [address] [place], [address] RBC Normal 4.2-5.4 [facility] Comment on above: Result Comment: Canc elled via OM: Order cancelled - Patient discharged Performed By: #### L 500.2500, L100.0100 #### [facility] [address] [place], [address] RDW CV Normal 11.6-14.6 [facility] Comment on above: Result Comment: Canc elled via OM: Order cancelled - Patient discharged Performed By: #### L 500.2500, L100.0100 #### [facility] [address] [place], [address] RDW SD Normal 35.1-43.9 [facility] Comment on above: Result Comment: Canc elled via OM: Order cancelled - Patient discharged Performed By: #### L 500.2500, L100.0100 #### [facility] [address] [place], [address] WBC Normal 4.4-11.0 [facility] Comment on above: Result Comment: Canc elled via OM: Order cancelled - Patient discharged Performed By: #### L 500.2500, L100.0100 #### [facility] [address] [place], [address] Basic Metabolic Profile (BMP )on 02-24-2025 BUN Normal 4-19 [facility] Comment on above: Result Comment: Canc elled via OM: Order cancelled - Patient discharged Performed By: #### L 500.2500, L100.0100 #### [facility] [address], [address] BUN/CRE Normal 10-20 [facility] Comment on above: Result Comment: Canc elled via OM: Order cancelled - Patient discharged Performed By: #### L 500.2500, L100.0100 #### [facility] [address], [address] Calcium Normal 7.6-11.0 [facility] Comment on above: Result Comment: Canc elled via OM: Order cancelled - Patient discharged Performed By: #### L 500.2500, L100.0100 #### [facility] [address] [place], [address] CL Normal 98-108 [facility] Comment on above: Result Comment: Canc elled via OM: Order cancelled - Patient discharged Performed By: #### L 500.2500, L100.0100 #### [facility] [address] [place], [address] CO2 Normal 21.0-32.0 [facility] Comment on above: Result Comment: Canc elled via OM: Order cancelled - Patient discharged Performed By: #### L 500.2500, L100.0100 #### [facility] [address] [place], [address] CREAT,SERUM Normal 0.70-1.20 [facility] Comment on above: Result Comment: Canc elled via OM: Order cancelled - Patient discharged Performed By: #### L 500.2500, L100.0100 #### [facility] [address] [place], [address] eGFR Normal >60 [facility] Comment on above: Result Comment: Canc elled via OM: Order cancelled - Patient discharged Performed By: #### L 500.2500, L100.0100 #### [facility] [address] [place], [address] GAP Normal 5-15 [facility] Comment on above: Result Comment: Canc elled via OM: Order cancelled - Patient discharged Performed By: #### L 500.2500, L100.0100 #### [facility] [address] [place], [address] GLU Normal 70-99 [facility] Comment on above: Result Comment: Canc elled via OM: Order cancelled - Patient discharged Performed By: #### L 500.2500, L100.0100 #### [facility] [address] [place], [address] Potassium Normal 3.3-5.1 [facility] Comment on above: Result Comment: Canc elled via OM: Order cancelled - Patient discharged Performed By: #### L 500.2500, L100.0100 #### [facility] [address] [place], [address] Basic Metabolic Profile (BMP) Normal 133-145 [facility] Comment on above: Result Comment: Canc elled via OM: Order cancelled - Patient discharged Performed By: #### L 500.2500, L100.0100 #### [facility] [address] [place], [address] CBC W/Diff, Automatedon 04-3 -2024 Absolute Neut Normal 2.0-7.7 [facility] Comment on above: Result Comment: Canc elled via OM: Order cancelled - Patient discharged Performed By: #### L 500.2500, L100.0100 #### [facility] [address] [place], [address] HCT Normal 37-47 [facility] Comment on above: Result Comment: Canc elled via OM: Order cancelled - Patient discharged Performed By: #### L 500.2500, L100.0100 #### [facility] [address] [place], [address] HGB Normal 12.0-15.0 [facility] Comment on above: Result Comment: Canc elled via OM: Order cancelled - Patient discharged Performed By: #### L 500.2500, L100.0100 #### [facility] [address] [place], [address] MCH Normal 27.0-32.0 [facility] Comment on above: Result Comment: Canc elled via OM: Order cancelled - Patient discharged Performed By: #### L 500.2500, L100.0100 #### [facility] [address] [place], [address] MCHC Normal 32-36 [facility] Comment on above: Result Comment: Canc elled via OM: Order cancelled - Patient discharged Performed By: #### L 500.2500, L100.0100 #### [facility] [address] [place], [address] MCV Normal 81-99 [facility] Comment on above: Result Comment: Canc elled via OM: Order cancelled - Patient discharged Performed By: #### L 500.2500, L100.0100 #### [facility] [address] [place], [address] NEUT% Normal 47-70 [facility] Comment on above: Result Comment: Canc elled via OM: Order cancelled - Patient discharged Performed By: #### L 500.2500, L100.0100 #### [facility] [address] [place], [address] PLT Normal 150-450 [facility] Comment on above: Result Comment: Canc elled via OM: Order cancelled - Patient discharged Performed By: #### L 500.2500, L100.0100 #### [facility] [address] [place], [address] RBC Normal 4.2-5.4 [facility] Comment on above: Result Comment: Canc elled via OM: Order cancelled - Patient discharged Performed By: #### L 500.2500, L100.0100 #### [facility] [address] [place], [address] RDW CV Normal 11.6-14.6 [facility] Comment on above: Result Comment: Canc elled via OM: Order cancelled - Patient discharged Performed By: #### L 500.2500, L100.0100 #### [facility] [address] [place], [address] RDW SD Normal 35.1-43.9 [facility] Comment on above: Result Comment: Canc elled via OM: Order cancelled - Patient discharged Performed By: #### L 500.2500, L100.0100 #### [facility] [address] [place], [address] WBC Normal 4.4-11.0 [facility] Comment on above: Result Comment: Canc elled via OM: Order cancelled - Patient discharged Performed By: #### L 500.2500, L100.0100 #### [facility] [address] [place], [address] Culture, Blood (WB)on 2024 CUB Blood cultures x2, f rom two different sites No growth in 5 days. Normal [facility] Comment on above: Performed By: #### L 500.2500, L100.0100 #### [facility] [address], [address] Absolute lymphocyte countOrd ered By: Yee Jones on 02-23-2025 Lymphocytes Auto (Unsp spec) [#/Vol] 0.85 10*3/uL 0.83-4.51 [facility] Absolute neutrophil countOrd ered By: Yee Jones on 02-23-2025 Neutrophils (Bld) [#/Vol] 5.9 10*3/uL 2.0-7.7 [facility] Anion gap in Serum or Plasma Ordered By: Yee Jones on 02-23-2025 Anion gap [Moles/Vol] 9 mmol/L 5-15 [facility] Automated lymphocyte count a s percentage of total leukocytesOrdered By: Yee Jones on 02-23-2025 Lymphocytes/100 WBC Auto (Unsp spec) 11.2 % Low 19-41 [facility] BUN/creatinine ratioOrdered By: Yee Jones on 02-23-2025 Urea nitrogen/Creatinine [Mass ratio] 31.6 mg/mg High 10-20 [facility] Basic Metabolic Profile (BMP )on 02-23-2025 BUN/CRE 31.6 RATIO High 10-20 [facility] Comment on above: Performed By: #### L 500.2500, L100.0100 #### [facility] [address] [place], [address] Calcium [Mass/Vol] 9.4 mg/dL Normal 7.6-11.0 [facility] Comment on above: Performed By: #### L 500.2500, L100.0100 #### [facility] [address] [place], [address] Chloride [Moles/Vol] 96 mmol/L Low 98-108 [facility] Comment on above: Performed By: #### L 500.2500, L100.0100 #### [facility] [address] [place], [address] CO2 [Moles/Vol] 40.2 mmol/L High 21.0-32.0 [facility] Comment on above: Performed By: #### L 500.2500, L100.0100 #### [facility] [address] [place], [address] Creatinine [Mass/Vol] 0.62 mg/dL Low 0.70-1.20 [facility] Comment on above: Performed By: #### L 500.2500, L100.0100 #### [facility] [address] [place], [address] ECRCL 86.12 ml/min Normal 50-250 [facility] Comment on above: Performed By: #### L 500.2500, L100.0100 #### [facility] [address] [place], [address] GAP 9 Normal 5-15 [facility] Comment on above: Performed By: #### L 500.2500, L100.0100 #### [facility] [address] [place], [address] GFR/1.73 sq M.predicted among non-blacks MDRD (S/P/Bld) [Vol rate/Area] 97 mL/min/{1.73_m2} Normal >60 [facility] Comment on above: Result Comment: mL/m in/1.73m2 CKD-EPI Creatinine Equation (2020) Performed By: #### L 500.2500, L100.0100 #### [facility] [address] [place], [address] Glucose [Mass/Vol] 114 mg/dL High 70-99 [facility] Comment on above: Performed By: #### L 500.2500, L100.0100 #### [facility] [address] [place], [address] Potassium [Moles/Vol] 3.3 mmol/L Normal 3.3-5.1 [facility] Comment on above: Performed By: #### L 500.2500, L100.0100 #### [facility] [address] [place], [address] Sodium [Moles/Vol] 145 mmol/L Normal 133-145 [facility] Comment on above: Performed By: #### L 500.2500, L100.0100 #### [facility] [address] [place], [address] Urea nitrogen [Mass/Vol] 20 mg/dL High 4-19 [facility] Comment on above: Performed By: #### L 500.2500, L100.0100 #### [facility] [address] [place], [address] Basophil percentageOrdered B y: Yee Jones on 02-23-2025 Basophils/100 WBC (Bld) 0.7 % 0-1 [facility] CBC W/Diff, Automatedon 01-27 Absolute Lymph 0.85 X10 3/uL Normal 0.83-4.51 [facility] Comment on above: Performed By: #### L 500.2500, L100.0100 #### [facility] [address] [place], [address] Absolute Neut 5.9 X10 3/uL Normal 2.0-7.7 [facility] Comment on above: Performed By: #### L 500.2500, L100.0100 #### [facility] [address] [place], [address] Basophils/100 WBC (Bld) 0.7 % Normal 0-1 [facility] Comment on above: Performed By: #### L 500.2500, L100.0100 #### [facility] [address] [place], [address] Eosinophils/100 WBC (Bld) 1.7 % Normal 0-5 [facility] Comment on above: Performed By: #### L 500.2500, L100.0100 #### [facility] [address] [place], [address] Erythrocyte distribution width (RBC) [Ratio] 14.3 % Normal 11.6-14.6 [facility] Comment on above: Performed By: #### L 500.2500, L100.0100 #### [facility] [address] [place], [address] Hematocrit (Bld) [Volume fraction] 45.7 % Normal 37-47 [facility] Comment on above: Performed By: #### L 500.2500, L100.0100 #### [facility] [address] [place], [address] Hemoglobin (Bld) [Mass/Vol] 14.1 g/dL Normal 12.0-15.0 [facility] Comment on above: Performed By: #### L 500.2500, L100.0100 #### [facility] [address] [place], [address] IG% 0.400 Normal 0.0-0.9 [facility] Comment on above: Result Comment: IG% - Immature Granulocytes (promyelocytes, myelocytes and metamyelocytes) > 1% indicates that a LEFT SHIFT is Present. Performed By: #### L 500.2500, L100.0100 #### [facility] [address] [place], [address] Lymphocytes/100 WBC (Bld) 11.2 % Low 19-41 [facility] Comment on above: Performed By: #### L 500.2500, L100.0100 #### [facility] [address] [place], [address] MCH (RBC) [Entitic mass] 30.9 pg Normal 27.0-32.0 [facility] Comment on above: Performed By: #### L 500.2500, L100.0100 #### [facility] [address] [place], [address] MCHC (RBC) [Mass/Vol] 30.9 g/dL Low 32-36 [facility] Comment on above: Performed By: #### L 500.2500, L100.0100 #### [facility] [address] [place], [address] MCV (RBC) [Entitic vol] 100.2 fL High 81-99 [facility] Comment on above: Performed By: #### L 500.2500, L100.0100 #### [facility] [address] [place], [address] Monocytes/100 WBC (Bld) 7.9 % Normal 0-10 [facility] Comment on above: Performed By: #### L 500.2500, L100.0100 #### [facility] [address] [place], [address] Neutrophils/100 WBC (Bld) 78.1 % High 47-70 [facility] Comment on above: Performed By: #### L 500.2500, L100.0100 #### [facility] [address] [place], [address] Nucleated RBC (Bld) [#/Vol] 0 10*3/uL Normal 0-5 [facility] Comment on above: Performed By: #### L 500.2500, L100.0100 #### [facility] [address] [place], [address] Platelet mean volume (Bld) [Entitic vol] 10.7 fL Normal 6.2-12.0 [facility] Comment on above: Performed By: #### L 500.2500, L100.0100 #### [facility] [address] [place], [address] Platelets (Bld) [#/Vol] 217 10*3/uL Normal 150-450 [facility] Comment on above: Performed By: #### L 500.2500, L100.0100 #### [facility] [address] [place], [address] RBC (Bld) [#/Vol] 4.56 10*6/uL Normal 4.2-5.4 [facility] Comment on above: Performed By: #### L 500.2500, L100.0100 #### [facility] [address] [place], [address] RDW SD 53.5 fl High 35.1-43.9 [facility] Comment on above: Performed By: #### L 500.2500, L100.0100 #### [facility] [address] [place], [address] WBC (Bld) [#/Vol] 7.6 10*3/uL Normal 4.4-11.0 [facility] Comment on above: Performed By: #### L 500.2500, L100.0100 #### [facility] [address] [place], [address] Carbon dioxide, total [Moles /volume] in Central venous bloodOrdered By: Yee Jones on 02-23-2025 CO2 [Moles/Vol] 40.2 mmol/L High 21.0-32.0 [facility] Chloride assayOrdered By: Na lawanda Jones on 02-23-2025 Chloride [Moles/Vol] 96 mmol/L Low 98-108 [facility] Discharge Instructionon 01-27 Discharge Instruction [facility] Medical Records Department [address] [place] [address] Instructions for Home/Discharge Instructions 02/23/25 1320 MR#: [id number] Acct: [id number] Name: LISA LUCERO Rep #: [id number] : 1955 69 From: Yee Jones MD [...] [Daily Multi-Vitamin] Tablet 1 tab PO DAILY [place] Saline 0.65 % aerosol,spray 1 spray intranasal [...] DO; Dr. Kym Norton MD Signed Normal [facility] Eosinophil percentageOrdered By: Yee Jones on 02-23-2025 Eosinophils/100 WBC (Bld) 1.7 % 0-5 [facility] Erythrocyte distribution wid th (RBC) [Ratio]Ordered By: Yee Jones on 02-23-2025 Erythrocyte distribution width (RBC) [Entitic vol] 53.5 fL High 35.1-43.9 [facility] Erythrocyte distribution wid th ratioOrdered By: Yee Jones on 02-23-2025 Erythrocyte distribution width (RBC) [Ratio] 14.3 % 11.6-14.6 [facility] Erythrocyte distribution wid th standard deviationOrdered By: Yee Jones on 02-23-2025 Erythrocyte distribution width (RBC) [Ratio] 53.5 fl High 35.1-43.9 [facility] Estimation of creatinine dilan aranceOrdered By: Yee Jones on 02-23-2025 Estimated Creatinine Clearance Calc 86.12 ml/min 50-250 [facility] GFR/1.73 sq M.predicted rosalba g non-blacks MDRD (S/P/Bld) [Vol rate/Area]Ordered By: Yee Jones on 02-23-2025 Estimated GFR (MDRD) Non-Af Amer 97 >60 [facility] Comment on above: mL/min/1.73m2 CKD-EP I Creatinine Equation (2020) Glomerular filtration rate ( GFR) estimation/1.73 sq m using serum, plasma, or whole bOrdered By: Yee Jones on 02-23-2025 GFR/1.73 sq M.predicted among non-blacks MDRD (S/P/Bld) [Vol rate/Area] 97 mL/min/{1.73_m2} >60 [facility] Comment on above: mL/min/1.73m2 CKD-EP I Creatinine Equation (2020) Hematocrit Auto (Bld) [Volum e fraction]Ordered By: Yee Jones on 02-23-2025 Hematocrit (Bld) [Volume fraction] 45.7 % 37-47 [facility] Hemoglobin measurementOrdere d By: Yee Jones on 02-23-2025 Hemoglobin (Bld) [Mass/Vol] 14.1 g/dL 12.0-15.0 [facility] Immature granulocytes/100 WB C Auto (Bld)Ordered By: Yee Jones on 02-23-2025 Immature granulocytes/100 WBC (Bld) 0.400 % 0.0-0.9 [facility] Comment on above: IG% - Immature Granu locytes (promyelocytes, myelocytes and metamyelocytes) > 1% indicates that a LEFT SHIFT is Present. Lymphocytes Auto (Unsp spec) [#/Vol]Ordered By: Yee Jones on 02-23-2025 Lymphocytes (Bld) [#/Vol] 0.85 10*3/uL 0.83-4.51 [facility] Lymphocytes/100 WBC Auto (Un sp spec)Ordered By: Yee Jones 02-23-2025 Lymphocytes/100 WBC (Bld) 11.2 % Low 19-41 [facility] MCV (mean corpuscular volume ) determinationOrdered By: Yee Jones 02-23-2025 MCV (RBC) [Entitic vol] 100.2 fL High 81-99 [facility] Mean corpuscular hemoglobin (MCH) determinationOrdered By: Yee Jones 02-23-2025 MCH (RBC) [Entitic mass] 30.9 pg 27.0-32.0 [facility] Mean corpuscular hemoglobin concentration (MCHC) determinationOrdered By: Yee Jones 02-23-2025 MCHC (RBC) [Mass/Vol] 30.9 g/dL Low 32-36 [facility] Mean platelet volume determi nationOrdered By: Yee Jones on 02-23-2025 Platelet mean volume (Bld) [Entitic vol] 10.7 fL 6.2-12.0 [facility] Monocyte percentageOrdered B y: Yee Jones on 02-23-2025 Monocytes/100 WBC (Bld) 7.9 % 0-10 [facility] Neutrophil percentageOrdered By: Yee Kumaryajaira on 02-23-2025 Neutrophils/100 WBC (Bld) 78.1 % High 47-70 [facility] Nucleated red blood cell per centageOrdered By: Yee Robert on 02-23-2025 Nucleated RBC/100 WBC (Bld) [Ratio] 0 % 0-5 [facility] Platelet countOrdered By: Na na Robert on 02-23-2025 Platelets (Bld) [#/Vol] 217 10*3/uL 150-450 [facility] Potassium (Unsp spec) [Mass/ Vol]Ordered By: Yee Jones on 02-23-2025 Potassium [Moles/Vol] 3.3 mmol/L 3.3-5.1 [facility] Potassium measurement (mass/ volume)Ordered By: Yee Jones on 02-23-2025 Potassium (Unsp spec) [Mass/Vol] 3.3 mmol/L 3.3-5.1 [facility] RBC Auto (Bld) [#/Vol]Ordere d By: Yee Robert on 02-23-2025 RBC (Bld) [#/Vol] 4.56 10*6/uL 4.2-5.4 [facility] Serum creatinine measurement (mass/volume)Ordered By: Yee Jones on 02-23-2025 Creatinine [Mass/Vol] 0.62 mg/dL Low 0.70-1.20 [facility] Serum glucose measurement (m ass/volume)Ordered By: Yee Jones on 02-23-2025 Glucose [Mass/Vol] 114 mg/dL High 70-99 [facility] Serum or plasma calcium tad urement (mass/volume)Ordered By: Yee Jones on 02-23-2025 Calcium [Mass/Vol] 9.4 mg/dL 7.6-11.0 [facility] Serum or plasma urea nitroge n measurement (mass/volume)Ordered By: Yee Jones on 02-23-2025 Urea nitrogen [Mass/Vol] 20 mg/dL High 4-19 [facility] Sodium levelOrdered By: Yee Jones on 02-23-2025 Sodium [Moles/Vol] 145 mmol/L 133-145 [facility] White blood cell (WBC) count Ordered By: Yee Robert on 02-23-2025 WBC (Bld) [#/Vol] 7.6 10*3/uL 4.4-11.0 [facility] Basic Metabolic Profile (BMP )on 02-22-2025 BUN/CRE 36.2 RATIO High 10-20 [facility] Comment on above: Performed By: #### L 100.0500, L501.2300, L501.5200, L500.2500 #### [facility] [address] [place], [address] Calcium [Mass/Vol] 9.4 mg/dL Normal 7.6-11.0 [facility] Comment on above: Performed By: #### L 100.0500, L501.2300, L501.5200, L500.2500 #### [facility] [address] [place], [address] Chloride [Moles/Vol] 96 mmol/L Low 98-108 [facility] Comment on above: Performed By: #### L 100.0500, L501.2300, L501.5200, L500.2500 #### [facility] [address] [place], [address] CO2 [Moles/Vol] 36.4 mmol/L High 21.0-32.0 [facility] Comment on above: Performed By: #### L 100.0500, L501.2300, L501.5200, L500.2500 #### [facility] [address] [place], [address] Creatinine [Mass/Vol] 0.60 mg/dL Low 0.70-1.20 [facility] Comment on above: Performed By: #### L 100.0500, L501.2300, L501.5200, L500.2500 #### [facility] [address], [address] ECRCL 86.29 ml/min Normal 50-250 [facility] Comment on above: Performed By: #### L 100.0500, L501.2300, L501.5200, L500.2500 #### [facility] [address] [place], [address] GAP 11 Normal 5-15 [facility] Comment on above: Performed By: #### L 100.0500, L501.2300, L501.5200, L500.2500 #### [facility] [address] [place], [address] GFR/1.73 sq M.predicted among non-blacks MDRD (S/P/Bld) [Vol rate/Area] 98 mL/min/{1.73_m2} Normal >60 [facility] Comment on above: Result Comment: mL/m in/1.73m2 CKD-EPI Creatinine Equation (2020) Performed By: #### L 100.0500, L501.2300, L501.5200, L500.2500 #### [facility] [address] [place], [address] Glucose [Mass/Vol] 115 mg/dL High 70-99 [facility] Comment on above: Performed By: #### L 100.0500, L501.2300, L501.5200, L500.2500 #### [facility] [address] [place], [address] Potassium [Moles/Vol] 3.5 mmol/L Normal 3.3-5.1 [facility] Comment on above: Performed By: #### L 100.0500, L501.2300, L501.5200, L500.2500 #### [facility] [address] [place], [address] Sodium [Moles/Vol] 144 mmol/L Normal 133-145 [facility] Comment on above: Performed By: #### L 100.0500, L501.2300, L501.5200, L500.2500 #### [facility] [address] [place], [address] Urea nitrogen [Mass/Vol] 22 mg/dL High 4-19 [facility] Comment on above: Performed By: #### L 100.0500, L501.2300, L501.5200, L500.2500 #### [facility] [address] [place], [address] CBC-Complete Blood Cnt No Di ffon 02-22-2025 Erythrocyte distribution width (RBC) [Ratio] 14.5 % Normal 11.6-14.6 [facility] Comment on above: Performed By: #### L 100.0500, L501.2300, L501.5200, L500.2500 #### [facility] [address] [place], [address] Hematocrit (Bld) [Volume fraction] 42.6 % Normal 37-47 [facility] Comment on above: Performed By: #### L 100.0500, L501.2300, L501.5200, L500.2500 #### [facility] [address] [place], [address] Hemoglobin (Bld) [Mass/Vol] 13.2 g/dL Normal 12.0-15.0 [facility] Comment on above: Performed By: #### L 100.0500, L501.2300, L501.5200, L500.2500 #### [facility] [address] [place], [address] MCH (RBC) [Entitic mass] 31.4 pg Normal 27.0-32.0 [facility] Comment on above: Performed By: #### L 100.0500, L501.2300, L501.5200, L500.2500 #### [facility] [address] [place], [address] MCHC (RBC) [Mass/Vol] 31.0 g/dL Low 32-36 [facility] Comment on above: Performed By: #### L 100.0500, L501.2300, L501.5200, L500.2500 #### [facility] [address] [place], [address] MCV (RBC) [Entitic vol] 101.2 fL High 81-99 [facility] Comment on above: Performed By: #### L 100.0500, L501.2300, L501.5200, L500.2500 #### [facility] [address] [place], [address] Platelet mean volume (Bld) [Entitic vol] 11.3 fL Normal 6.2-12.0 [facility] Comment on above: Performed By: #### L 100.0500, L501.2300, L501.5200, L500.2500 #### [facility] [address] [place], [address] Platelets (Bld) [#/Vol] 189 10*3/uL Normal 150-450 [facility] Comment on above: Performed By: #### L 100.0500, L501.2300, L501.5200, L500.2500 #### [facility] [address] [place], [address] RBC (Bld) [#/Vol] 4.21 10*6/uL Normal 4.2-5.4 [facility] [facility] Comment on above: Performed By: #### L 100.0500, L501.2300, L501.5200, L500.2500 #### [facility] [address] [place], [address] RDW SD 54.4 fl High 35.1-43.9 [facility] Comment on above: Performed By: #### L 100.0500, L501.2300, L501.5200, L500.2500 #### [facility] [address] [place], [address] WBC (Bld) [#/Vol] 8.1 10*3/uL Normal 4.4-11.0 [facility] Comment on above: Performed By: #### L 100.0500, L501.2300, L501.5200, L500.2500 #### [facility] [address] [place], [address] Magnesiumon 02-22-2025 Magnesium [Mass/Vol] 2.2 mg/dL Normal 1.5-2.2 [facility] Comment on above: Performed By: #### L 100.0500, L501.2300, L501.5200, L500.2500 #### [facility] [address] [place], [address] Magnesium (Unsp spec) [Mass/ Vol]Ordered By: Claudia Valerio on 02-22-2025 Magnesium [Mass/Vol] 2.2 mg/dL 1.5-2.2 [facility] Magnesium measurement (mass/ volume)Ordered By: Claudia Valerio on 02-22-2025 Magnesium (Unsp spec) [Mass/Vol] 2.2 mg/dL 1.5-2.2 [facility] Phosphoruson 02-22-2025 Phosphate [Mass/Vol] 4.9 mg/dL High 2.7-4.5 [facility] Comment on above: Performed By: #### L 100.0500, L501.2300, L501.5200, L500.2500 #### [facility] [address] [place], [address] Serum phosphorus measurement Ordered By: Claduia Valerio on 02-22-2025 Phosphorus Level 4.9 mg/dL High 2.7-4.5 [facility] Basic Metabolic Profile (BMP )on 02-21-2025 BUN/CRE 40.7 RATIO High 10-20 [facility] Comment on above: Performed By: #### L 100.0500, L501.2300, L501.5200, L500.2500 #### [facility] [address] [place], [address] Calcium [Mass/Vol] 8.9 mg/dL Normal 7.6-11.0 [facility] Comment on above: Performed By: #### L 100.0500, L501.2300, L501.5200, L500.2500 #### [facility] [address] [place], [address] Chloride [Moles/Vol] 96 mmol/L Low 98-108 [facility] Comment on above: Performed By: #### L 100.0500, L501.2300, L501.5200, L500.2500 #### [facility] [address] [place], [address] CO2 [Moles/Vol] 39.0 mmol/L High 21.0-32.0 [facility] Comment on above: Performed By: #### L 100.0500, L501.2300, L501.5200, L500.2500 #### [facility] [address] [place], [address] Creatinine [Mass/Vol] 0.54 mg/dL Low 0.70-1.20 [facility] Comment on above: Performed By: #### L 100.0500, L501.2300, L501.5200, L500.2500 #### [facility] [address] [place], [address] ECRCL 85.99 ml/min Normal 50-250 [facility] Comment on above: Performed By: #### L 100.0500, L501.2300, L501.5200, L500.2500 #### [facility] [address] [place], [address] GAP 9 Normal 5-15 [facility] Comment on above: Performed By: #### L 100.0500, L501.2300, L501.5200, L500.2500 #### [facility] [address] [place], [address] GFR/1.73 sq M.predicted among non-blacks MDRD (S/P/Bld) [Vol rate/Area] 101 mL/min/{1.73_m2} Normal >60 [facility] Comment on above: Result Comment: mL/m in/1.73m2 CKD-EPI Creatinine Equation (2020) Performed By: #### L 100.0500, L501.2300, L501.5200, L500.2500 #### [facility] [address] [place], [address] Glucose [Mass/Vol] 119 mg/dL High 70-99 [facility] Comment on above: Performed By: #### L 100.0500, L501.2300, L501.5200, L500.2500 #### [facility] [address] [place], [address] Potassium [Moles/Vol] 3.3 mmol/L Normal 3.3-5.1 [facility] Comment on above: Performed By: #### L 100.0500, L501.2300, L501.5200, L500.2500 #### [facility] [address] [place], [address] Sodium [Moles/Vol] 144 mmol/L Normal 133-145 [facility] Comment on above: Performed By: #### L 100.0500, L501.2300, L501.5200, L500.2500 #### [facility] [address] [place], [address] Urea nitrogen [Mass/Vol] 22 mg/dL High 4-19 [facility] Comment on above: Performed By: #### L 100.0500, L501.2300, L501.5200, L500.2500 #### [facility] [address] [place], [address] CBC-Complete Blood Cnt No Di ffon 02-21-2025 Erythrocyte distribution width (RBC) [Ratio] 14.6 % Normal 11.6-14.6 [facility] Comment on above: Performed By: #### L 100.0500, L501.2300, L501.5200, L500.2500 #### [facility] [address] [place], [address] Hematocrit (Bld) [Volume fraction] 40.3 % Normal 37-47 [facility] Comment on above: Performed By: #### L 100.0500, L501.2300, L501.5200, L500.2500 #### [facility] [address] [place], [address] Hemoglobin (Bld) [Mass/Vol] 12.6 g/dL Normal 12.0-15.0 [facility] Comment on above: Performed By: #### L 100.0500, L501.2300, L501.5200, L500.2500 #### [facility] [address] [place], [address] MCH (RBC) [Entitic mass] 31.3 pg Normal 27.0-32.0 [facility] Comment on above: Performed By: #### L 100.0500, L501.2300, L501.5200, L500.2500 #### [facility] [address] [place], [address] MCHC (RBC) [Mass/Vol] 31.3 g/dL Low 32-36 [facility] Comment on above: Performed By: #### L 100.0500, L501.2300, L501.5200, L500.2500 #### [facility] [address] [place], [address] MCV (RBC) [Entitic vol] 100.2 fL High 81-99 [facility] Comment on above: Performed By: #### L 100.0500, L501.2300, L501.5200, L500.2500 #### [facility] [address] [place], [address] Platelet mean volume (Bld) [Entitic vol] 10.6 fL Normal 6.2-12.0 [facility] Comment on above: Performed By: #### L 100.0500, L501.2300, L501.5200, L500.2500 #### [facility] [address] [place], [address] Platelets (Bld) [#/Vol] 226 10*3/uL Normal 150-450 [facility] Comment on above: Performed By: #### L 100.0500, L501.2300, L501.5200, L500.2500 #### [facility] [address] [place], [address] RBC (Bld) [#/Vol] 4.02 10*6/uL Low 4.2-5.4 [facility] Comment on above: Performed By: #### L 100.0500, L501.2300, L501.5200, L500.2500 #### [facility] [address] [place], [address] RDW SD 54.2 fl High 35.1-43.9 [facility] Comment on above: Performed By: #### L 100.0500, L501.2300, L501.5200, L500.2500 #### [facility] [address] [place], [address] WBC (Bld) [#/Vol] 8.9 10*3/uL Normal 4.4-11.0 [facility] Comment on above: Performed By: #### L 100.0500, L501.2300, L501.5200, L500.2500 #### [facility] [address] [place], [address] Magnesiumon 02-21-2025 Magnesium [Mass/Vol] 1.9 mg/dL Normal 1.5-2.2 [facility] Comment on above: Performed By: #### L 100.0500, L501.2300, L501.5200, L500.2500 #### [facility] [address] [place], [address] Phosphoruson 02-21-2025 Phosphate [Mass/Vol] 3.3 mg/dL Normal 2.7-4.5 [facility] Comment on above: Performed By: #### L 100.0500, L501.2300, L501.5200, L500.2500 #### [facility] [address] [place], [address] Urine Cultureon 02-21-2025 URC Below infection leve l. Mixed Gram Pos Gram Neg Org [place] Count 1000-10,000 MIXC Mixed contaminants. Submit a new specimen if indicated. Normal [facility] Comment on above: Performed By: #### L 500.2500, L100.0100 #### [facility] [address] [place], [address] Bilirubin, totalOrdered By: Kym Norton on 02-20-2025 Bilirubin [Mass/Vol] 0.43 mg/dL 0.00-1.30 [facility] CBC-Complete Blood Cnt No Di ffon 02-20-2025 Erythrocyte distribution width (RBC) [Ratio] 14.4 % Normal 11.6-14.6 [facility] Comment on above: Performed By: #### L 500.2500, L100.0100 #### [facility] [address] [place], [address] Hematocrit (Bld) [Volume fraction] 39.2 % Normal 37-47 [facility] Comment on above: Performed By: #### L 500.2500, L100.0100 #### [facility] [address] [place], [address] Hemoglobin (Bld) [Mass/Vol] 12.4 g/dL Normal 12.0-15.0 [facility] Comment on above: Performed By: #### L 500.2500, L100.0100 #### [facility] [address] [place], [address] MCH (RBC) [Entitic mass] 31.2 pg Normal 27.0-32.0 [facility] Comment on above: Performed By: #### L 500.2500, L100.0100 #### [facility] [address] [place], [address] MCHC (RBC) [Mass/Vol] 31.6 g/dL Low 32-36 [facility] Comment on above: Performed By: #### L 500.2500, L100.0100 #### [facility] [address] [place], [address] MCV (RBC) [Entitic vol] 98.7 fL Normal 81-99 [facility] Comment on above: Performed By: #### L 500.2500, L100.0100 #### [facility] [address] [place], [address] Platelet mean volume (Bld) [Entitic vol] 11.2 fL Normal 6.2-12.0 [facility] Comment on above: Performed By: #### L 500.2500, L100.0100 #### [facility] [address] [place], [address] Platelets (Bld) [#/Vol] 223 10*3/uL Normal 150-450 [facility] Comment on above: Performed By: #### L 500.2500, L100.0100 #### [facility] [address] [place], [address] RBC (Bld) [#/Vol] 3.97 10*6/uL Low 4.2-5.4 [facility] Comment on above: Performed By: #### L 500.2500, L100.0100 #### [facility] [address] [place], [address] RDW SD 52.0 fl High 35.1-43.9 [facility] Comment on above: Performed By: #### L 500.2500, L100.0100 #### [facility] [address] [place], [address] WBC (Bld) [#/Vol] 8.2 10*3/uL Normal 4.4-11.0 [facility] Comment on above: Performed By: #### L 500.2500, L100.0100 #### [facility] [address] [place], [address] CTA Chest W/WO Contraston CTA Chest W/WO Contrast [facility] [address] [place] [address] CTA Chest W/WO Contrast MR#: [id number] Acct: [id number] Name: LISA LUCERO Rep #: [id number] : 1955 F 69 From: Rustam Drummond MD PCP: Dr. Phuc Martines DO Status: ADM IN Study: CTA Chest W/WO Contrast Date of Exam: 02/20/25 Exam# [id number] Ordering Dr: Claudia Valerio DO EXAM: CT [...] in 6 months is recommended. Reading Location: [facility] CC: Dr. Phuc Martines, DO; Dr. Claudia Valerio DO [employer] Specialist: Signed Normal [facility] Calculated very low density lipoprotein (VLDL) cholesterol measurementOrdered By: Kym Norton on 02-20-2025 Calculated very low density lipoprotein (VLDL) cholesterol measurement 12 mg/dL 5-40 [facility] VLDL Cholesterol 12 mg/dL 5-40 [facility] Comprehensive Metabolic Prof ilon 02-20-2025 Albumin [Mass/Vol] 3.8 g/dL Normal 3.4-4.8 [facility] Comment on above: Performed By: #### L 500.2500, L100.0100 #### [facility] [address] [facility] [place], [address] Albumin/Globulin [Mass ratio] 1.2 {ratio} Normal 0.9-2.4 [facility] Comment on above: Performed By: #### L 500.2500, L100.0100 #### [facility] [address] [place], [address] ALK PHOS 72 U/L Normal 35-104 [facility] Comment on above: Performed By: #### L 500.2500, L100.0100 #### [facility] [address] [place], [address] ALT [Catalytic activity/Vol] 42 U/L High <=34 [facility] Comment on above: Performed By: #### L 500.2500, L100.0100 #### [facility] [address] [place], [address] AST [Catalytic activity/Vol] 27 U/L Normal <=31 [facility] Comment on above: Performed By: #### L 500.2500, L100.0100 #### [facility] [address] [place], [address] Bilirubin [Mass/Vol] 0.43 mg/dL Normal 0.00-1.30 [facility] Comment on above: Performed By: #### L 500.2500, L100.0100 #### [facility] [address] [place], [address] BUN/CRE 30.9 RATIO High 10-20 [facility] Comment on above: Performed By: #### L 500.2500, L100.0100 #### [facility] [address] [place], [address] Calcium [Mass/Vol] 8.9 mg/dL Normal 7.6-11.0 [facility] Comment on above: Performed By: #### L 500.2500, L100.0100 #### [facility] [address] [place], [address] Chloride [Moles/Vol] 95 mmol/L Low 98-108 [facility] Comment on above: Performed By: #### L 500.2500, L100.0100 #### [facility] [address] [place], [address] CO2 [Moles/Vol] 34.3 mmol/L High 21.0-32.0 [facility] Comment on above: Performed By: #### L 500.2500, L100.0100 #### [facility] [address] [place], [address] Creatinine [Mass/Vol] 0.56 mg/dL Low 0.70-1.20 [facility] Comment on above: Performed By: #### L 500.2500, L100.0100 #### [facility] [address] [place], [address] ECRCL 86.85 ml/min Normal 50-250 [facility] Comment on above: Performed By: #### L 500.2500, L100.0100 #### [facility] [address] [place], [address] GAP 13 Normal 5-15 [facility] Comment on above: Performed By: #### L 500.2500, L100.0100 #### [facility] [address] [place], [address] GFR/1.73 sq M.predicted among non-blacks MDRD (S/P/Bld) [Vol rate/Area] 100 mL/min/{1.73_m2} Normal >60 [facility] Comment on above: Result Comment: mL/m in/1.73m2 CKD-EPI Creatinine Equation (2020) Performed By: #### L 500.2500, L100.0100 #### [facility] [address] [place], [address] Globulin (S) [Mass/Vol] 3.2 g/dL Normal 2.2-4.2 [facility] Comment on above: Performed By: #### L 500.2500, L100.0100 #### [facility] [address] [place], [address] Glucose [Mass/Vol] 141 mg/dL High 70-99 [facility] Comment on above: Performed By: #### L 500.2500, L100.0100 #### [facility] [address] [place], [address] Potassium [Moles/Vol] 3.8 mmol/L Normal 3.3-5.1 [facility] Comment on above: Result Comment: Hemo lysis present, Results??could be affected. ?? Performed By: #### L 500.2500, L100.0100 #### [facility] [address] [place], [address] Sodium [Moles/Vol] 142 mmol/L Normal 133-145 [facility] Comment on above: Performed By: #### L 500.2500, L100.0100 #### [facility] [address] [place], [address] T PROT 7.0 g/dL Normal 5.9-8.4 [facility] Comment on above: Performed By: #### L 500.2500, L100.0100 #### [facility] [address] [place], [address] Urea nitrogen [Mass/Vol] 17 mg/dL Normal 4-19 [facility] Comment on above: Performed By: #### L 500.2500, L100.0100 #### [facility] [address] [place], [address] Echocardiogram study reportO rdered By: Mercy Purvis on 02-20-2025 Study report [facility] [address] [place] [address] Echo Complete W/ Contrast 02/20/25 1104 MR#: [id number] Acct: [id number] Name: LISA LUCERO Rep #:[id number] : [...] Dictated: 02/20/25 1104 Date Transcribed: 02/20/25 1156 [employer]ist: Signed [facility] Work Phone: LDL calc ser/plasOrdered By: Kym Norton on 02-20-2025 Cholesterol in LDL [Mass/Vol] 101 mg/dL [facility] Comment on above: Gylwwrurem=650-344 m g/dL & Higher Emuf=891 mg/dL or greater LDL Cholesterol, Calculated 101 mg/dL [facility] Comment on above: Vydfrljpgd=928-502 m g/dL & Higher Muth=596 mg/dL or greater Laboratory - Chemistry and C hemistry - challengeOrdered By: Kym Norton on 02-20-2025 AST [Catalytic activity/Vol] 27 U/L <32 [facility] Lipid Profileon 02-20-2025 CHOL:HDL 2.63 Normal [facility] Comment on above: Performed By: #### L 500.2500, L100.0100 #### [facility] [address] [place], [address] Cholesterol [Mass/Vol] 183 mg/dL Normal <=200 [facility] Comment on above: Result Comment: Chol esterol level, Desirable <200 mg/dL Borderline high cholesterol 200-239 mg/dL High cholesterol >=240 mg/dL Recommendations of the NCEP Adult Treatment Panel for the following risk-cutoff thresholds for the [place] population. Performed By: #### L 500.2500, L100.0100 #### [facility] [address] [place], [address] Cholesterol in HDL [Mass/Vol] 70 mg/dL Normal [facility] Comment on above: Result Comment: Monika onal Cholesterol Education Program (NCEP) guidelines: <40 mg/dL: Low HDL-cholesterol (major risk factor for CHD) >= 60 mg/dL: High HDL-cholesterol (negative risk factor for CHD) HDL-cholesterol is affected by a number of factors, e.g. smoking, exercise, hormones, sex and age. Performed By: #### L 500.2500, L100.0100 #### [facility] [address] [place], [address] Cholesterol in LDL [Mass/Vol] 101 mg/dL Normal [facility] Comment on above: Result Comment: Bord lgxqpu=104-828 mg/dL Higher Aphb=771 mg/dL or greater Performed By: #### L 500.2500, L100.0100 #### [facility] [address] [place], [address] Cholesterol in VLDL [Mass/Vol] 12 mg/dL Normal 5-40 [facility] Comment on above: Performed By: #### L 500.2500, L100.0100 #### [facility] [address] [place], [address] Triglyceride [Mass/Vol] 61 mg/dL Normal [facility] Comment on above: Result Comment: The drugs N-Acetylcysteine and Metamizole may falsely depress this assay. Normal range: <150 mg/dL Borderline High: 150-199 mg/dL High: 200-499 mg/dL Very High: >500 mg/dL Performed By: #### L 500.2500, L100.0100 #### [facility] [address] [place], [address] Magnesiumon 02-20-2025 Magnesium [Mass/Vol] 1.9 mg/dL Normal 1.5-2.2 [facility] Comment on above: Order Comment: Comme nts: Add onto previous labs if possible Performed By: #### L 100.0500, L501.2300, L501.5200, L500.2500 #### [facility] [address] [place], [address] RESPIRATORY PANEL MOLECULARo n 02-20-2025 RP PANEL [...] Not Detected RSV B Not Detected Normal [facility] Comment on above: Performed By: #### L 500.2500, L100.0100 #### [facility] [address] [place], [address] Respiratory pathogens DNA an d RNA panel RENETTA+probe (Resp)Ordered By: Claudia Valerio on 02-20-2025 Respiratory Panel (PCR) [facility] Respiratory pathogens detect ion panel by molecular detection methodOrdered By: Claudia Valerio on 02-20-2025 Respiratory pathogens DNA and RNA panel RENETTA+probe (Resp) [facility] Screening total cholesterol/ high density lipoprotein (HDL) cholesterol ratioOrdered By: Kym Norton on 02-20-2025 Cholesterol.total/Cho lesterol in HDL [Mass ratio] 2.63 {ratio} [facility] Serum globulin measurementOr dered By: Kym Norton on 02-20-2025 Globulin (S) [Mass/Vol] 3.2 g/dL 2.2-4.2 [facility] Serum or plasma alanine lindsey otransferase (ALT) measurementOrdered By: Kym Norton on 02-20-2025 ALT [Catalytic activity/Vol] 42 U/L High <35 [facility] Serum or plasma albumin tad urement (mass/volume)Ordered By: Kym Norton on 02-20-2025 Albumin [Mass/Vol] 3.8 g/dL 3.4-4.8 [facility] Serum or plasma albumin/glob ulin mass ratioOrdered By: Kym Norton on 02-20-2025 Albumin/Globulin [Mass ratio] 1.2 {ratio} 0.9-2.4 [facility] Serum or plasma alkaline zita sphatase measurementOrdered By: Kym Norton 02-20-2025 ALP [Catalytic activity/Vol] 72 U/L 35-104 [facility] Serum or plasma cholesterol in HDL measurement (mass/volume)Ordered By: Kym Norton on 02-20-2025 Cholesterol in HDL [Mass/Vol] 70 mg/dL >40 [facility] Comment on above: National Cholesterol Education Program (NCEP) guidelines:<40 mg/dL: Low HDL-cholesterol (major risk factor for CHD)>= 60 mg/dL: High HDL-cholesterol (negative risk factor for CHD)HDL-cholesterol is affected by a number of factors, e.g. smoking, exercise, hormones, sex and age. Serum or plasma cholesterol measurement (mass/volume)Ordered By: Kym Norton on 02-20-2025 Cholesterol [Mass/Vol] 183 mg/dL <201 [facility] Comment on above: Cholesterol level, D esirable <200 mg/dLBorderline high cholesterol 200-239 mg/dLHigh cholesterol >=240 mg/dLRecommendations of the NCEP Adult Treatment Panel for the following risk-cutoff thresholds for the [place] population. TSH DL <= 0.005 mIU/L QnOrde red By: Kym Norton on 02-20-2025 Thyroid Stimulating Hormone (TSH) 0.626 uIU/mL 0.300-4.20 0 [facility] TSH Qn 0.626 uIU/mL 0.300-4.20 0 [facility] Thyroid Stim Hormone (TSH)on 02-20-2025 TSH 0.626 uIU/mL Normal 0.300-4.20 0 [facility] Comment on above: Performed By: #### L 500.2500, L100.0100 #### [facility] [address] [place], [address] Total proteinOrdered By: Marychuy Norton on 02-20-2025 Protein [Mass/Vol] 7.0 g/dL 5.9-8.4 [facility] Triglycerides measurementOrd ered By: Kym Norton on 02-20-2025 Triglyceride [Mass/Vol] 61 mg/dL <199 [facility] Comment on above: The drugs N-Acetylcy steine and Metamizole may falsely depress this assay. Normal range: <150 mg/dLBorderline High: 150-199 mg/dLHigh: 200-499 mg/dLVery High: >500 mg/dL Activated partial thrombopla stin time (aPTT) in platelet poor plasma by coagulation aOrdered By: Linwood Ivy on 02-19-2025 aPTT Coag (PPP) [Time] 27.1 s 24.1-36.2 [facility] Bilirubin Test strip Ql (U)O rdered By: Linwood Ivy on 02-19-2025 Bilirubin Ql (U) Negative Negative [facility] Blood cultureOrdered By: Melissa Ivy on 02-19-2025 Bacteria identified Cx Nom (Bld) No growth in 5 days. [facility] Bacteria identified Cx Nom (Bld) No growth in 5 days. [facility] CBC W/Diff, Automatedon 01-27 Absolute Lymph 0.84 X10 3/uL Normal 0.83-4.51 [facility] Comment on above: Performed By: #### L 500.2500, L100.0100 #### [facility] [address] [place], [address] Absolute Neut 6.9 X10 3/uL Normal 2.0-7.7 [facility] Comment on above: Performed By: #### L 500.2500, L100.0100 #### [facility] [address] [place], [address] Basophils/100 WBC (Bld) 0.5 % Normal 0-1 [facility] Comment on above: Performed By: #### L 500.2500, L100.0100 #### [facility] [address] [place], [address] Eosinophils/100 WBC (Bld) 1.0 % Normal 0-5 [facility] Comment on above: Performed By: #### L 500.2500, L100.0100 #### [facility] [address] [place], [address] Erythrocyte distribution width (RBC) [Ratio] 14.6 % Normal 11.6-14.6 [facility] Comment on above: Performed By: #### L 500.2500, L100.0100 #### [facility] [address] [place], [address] Hematocrit (Bld) [Volume fraction] 41.2 % Normal 37-47 [facility] Comment on above: Performed By: #### L 500.2500, L100.0100 #### [facility] [address] [place], [address] Hemoglobin (Bld) [Mass/Vol] 13.0 g/dL Normal 12.0-15.0 [facility] Comment on above: Performed By: #### L 500.2500, L100.0100 #### [facility] [address] [place], [address] IG% 0.200 Normal 0.0-0.9 [facility] Comment on above: Result Comment: IG% - Immature Granulocytes (promyelocytes, myelocytes and metamyelocytes) > 1% indicates that a LEFT SHIFT is Present. Performed By: #### L 500.2500, L100.0100 #### [facility] [address] [place], [address] Lymphocytes/100 WBC (Bld) 9.8 % Low 19-41 [facility] Comment on above: Performed By: #### L 500.2500, L100.0100 #### [facility] [address] [place], [address] MCH (RBC) [Entitic mass] 31.3 pg Normal 27.0-32.0 [facility] Comment on above: Performed By: #### L 500.2500, L100.0100 #### [facility] [address] [place], [address] MCHC (RBC) [Mass/Vol] 31.6 g/dL Low 32-36 [facility] Comment on above: Performed By: #### L 500.2500, L100.0100 #### [facility] [address] [place], [address] MCV (RBC) [Entitic vol] 99.0 fL Normal 81-99 [facility] Comment on above: Performed By: #### L 500.2500, L100.0100 #### [facility] [address] [place], [address] Monocytes/100 WBC (Bld) 8.5 % Normal 0-10 [facility] Comment on above: Performed By: #### L 500.2500, L100.0100 #### [facility] [address] [place], [address] Neutrophils/100 WBC (Bld) 80.0 % High 47-70 [facility] Comment on above: Performed By: #### L 500.2500, L100.0100 #### [facility] [address] [place], [address] Nucleated RBC (Bld) [#/Vol] 0 10*3/uL Normal 0-5 [facility] Comment on above: Performed By: #### L 500.2500, L100.0100 #### [facility] [address] [place], [address] Platelet mean volume (Bld) [Entitic vol] 10.4 fL Normal 6.2-12.0 [facility] Comment on above: Performed By: #### L 500.2500, L100.0100 #### [facility] [address] [place], [address] Platelets (Bld) [#/Vol] 231 10*3/uL Normal 150-450 [facility] Comment on above: Performed By: #### L 500.2500, L100.0100 #### [facility] [address] [place], [address] RBC (Bld) [#/Vol] 4.16 10*6/uL Low 4.2-5.4 [facility] Comment on above: Performed By: #### L 500.2500, L100.0100 #### [facility] [address] [place], [address] RDW SD 53.2 fl High 35.1-43.9 [facility] Comment on above: Performed By: #### L 500.2500, L100.0100 #### [facility] [address] [place], [address] WBC (Bld) [#/Vol] 8.6 10*3/uL Normal 4.4-11.0 [facility] Comment on above: Performed By: #### L 500.2500, L100.0100 #### [facility] [address] [place], [address] Chest PA and Lateralon 02-19 Chest PA and Lateral [facility] [address] [place] [address] Chest PA and Lateral MR#: [id number] Acct: [id number] Name: LISA LUCERO Rep #: [id number] : 1955 F 69 From: Dane Mccabe MD PCP: Dr. Phuc Martines DO Status: REG ER Study: Chest PA and Lateral Date of Exam: 02/19/25 Exam# [id number] Ordering Dr: Linwood Ivy DO PROCEDURE: CHEST [...] Phuc Martines DO; Dr. Linwood Ivy DO [employer] Extension Specialist: Signed Normal [facility] Comprehensive Metabolic Prof ilon 02-19-2025 Albumin [Mass/Vol] 4.0 g/dL Normal 3.4-4.8 [facility] Comment on above: Performed By: #### L 500.2500, L100.0100 #### [facility] [address] [place], [address] Albumin/Globulin [Mass ratio] 1.2 {ratio} Normal 0.9-2.4 [facility] Comment on above: Performed By: #### L 500.2500, L100.0100 #### [facility] [address] [place], [address] ALK PHOS 80 U/L Normal 35-104 [facility] Comment on above: Performed By: #### L 500.2500, L100.0100 #### [facility] [address] [place], [address] ALT [Catalytic activity/Vol] 45 U/L High <=34 [facility] Comment on above: Performed By: #### L 500.2500, L100.0100 #### [facility] [address] [place], [address] AST [Catalytic activity/Vol] 29 U/L Normal <=31 [facility] Comment on above: Performed By: #### L 500.2500, L100.0100 #### [facility] [address] [place], [address] Bilirubin [Mass/Vol] 0.69 mg/dL Normal 0.00-1.30 [facility] Comment on above: Performed By: #### L 500.2500, L100.0100 #### [facility] [address] [place], [address] BUN/CRE 27.9 RATIO High 10-20 [facility] Comment on above: Performed By: #### L 500.2500, L100.0100 #### [facility] [address] [place], [address] Calcium [Mass/Vol] 9.4 mg/dL Normal 7.6-11.0 [facility] Comment on above: Performed By: #### L 500.2500, L100.0100 #### [facility] [address] [place], [address] Chloride [Moles/Vol] 96 mmol/L Low 98-108 [facility] Comment on above: Performed By: #### L 500.2500, L100.0100 #### [facility] [address] [place], [address] CO2 [Moles/Vol] 34.4 mmol/L High 21.0-32.0 [facility] Comment on above: Performed By: #### L 500.2500, L100.0100 #### [facility] [address] [place], [address] Creatinine [Mass/Vol] 0.55 mg/dL Low 0.70-1.20 [facility] Comment on above: Performed By: #### L 500.2500, L100.0100 #### [facility] [address] [place], [address] ECRCL 87.97 ml/min Normal 50-250 [facility] Comment on above: Performed By: #### L 500.2500, L100.0100 #### [facility] [address] [place], [address] GAP 11 Normal 5-15 [facility] Comment on above: Performed By: #### L 500.2500, L100.0100 #### [facility] [address] [place], [address] GFR/1.73 sq M.predicted among non-blacks MDRD (S/P/Bld) [Vol rate/Area] 100 mL/min/{1.73_m2} Normal >60 [facility] Comment on above: Result Comment: mL/m in/1.73m2 CKD-EPI Creatinine Equation (2020) Performed By: #### L 500.2500, L100.0100 #### [facility] [address] [place], [address] Globulin (S) [Mass/Vol] 3.3 g/dL Normal 2.2-4.2 [facility] Comment on above: Performed By: #### L 500.2500, L100.0100 #### [facility] [address] [place], [address] Glucose [Mass/Vol] 116 mg/dL High 70-99 [facility] Comment on above: Performed By: #### L 500.2500, L100.0100 #### [facility] [address] [place], [address] Potassium [Moles/Vol] 3.6 mmol/L Normal 3.3-5.1 [facility] Comment on above: Performed By: #### L 500.2500, L100.0100 #### [facility] [address] [place], [address] Sodium [Moles/Vol] 142 mmol/L Normal 133-145 [facility] Comment on above: Performed By: #### L 500.2500, L100.0100 #### [facility] [address] [place], [address] T PROT 7.2 g/dL Normal 5.9-8.4 [facility] Comment on above: Performed By: #### L 500.2500, L100.0100 #### [facility] [address] [place], [address] Urea nitrogen [Mass/Vol] 15 mg/dL Normal 4-19 [facility] Comment on above: Performed By: #### L 500.2500, L100.0100 #### [facility] [address] [place], [address] Echo Complete W/ Contraston 02-19-2025 Echo Complete W/ Contrast [facility] [address] [place] [address] Echo Complete W/ Contrast 02/20/25 1104 MR#: [id number] Acct: [id number] Name: LISA LUCERO Rep #: [id number] : 1955 69 From: Mercy Purvis MD [...] Dictated: 02/20/25 1104 Date Transcribed: 02/20/25 1156 [employer] F[employer] Extension Specialist: Signed Normal [facility] Emergency Department Summary on 02-19-2025 Emergency Department Summary [facility] Medical Records Department [address] [place] [address] Emergency Department Summary 02/19/25 MR#: [id number] Acct: [id number] Name: LISA LUCERO Rep #: [id number] : 1955 69 From: Linwood Ivy DO PCP: Dr. Phuc Martines DO Status:ADM IN Location: [facility] [id number] Linwood Ivy DO on [...] not coughing up significant mount of phlegm. [facility] Medical History COPD (chronic obstructive pulmonary disease) [...] PRN dry 0 02/19/25 Unknown History aerosol (Lawndale Saline) nasal passages triamcinolone acetonide 0.5 % [...] follow commands and that she was at [facility] year is 2024 Skin: Warm, dry, intact no rashes or lesions noted Const Vital Signs: 02/19/25 12:52 02/19/25 13:11 02/19/25 13:13 Temperature 99.2 F H Temperature Source Oral Pulse Rate 116 H Respiratory Rate 20 H Respiratory Effort Short of Breath Respiratory Pattern Blood Pressure 120/106 H (more content not included)... Normal [facility] Epithelial cells.squamous LM Ql (Urine sed)Ordered By: Linwood Ivy on 02-19-2025 Epithelial cells.squamous LM.HPF (Urine sed) [#/Area] 0 /[HPF] 5-10 [facility] Glucose Ql (U)Ordered By: Fernandez Ivy on 02-19-2025 Urine Glucose (UA) Normal mg/dl Normal [facility] H AND P Exam - Hospitaliston 02-19-2025 H&P Exam - Hospitalist [facility] Medical Records Department [address] [place] [address] H P Exam - Hospitalist 02/19/25 1548 MR#: [id number] Acct: [id number] Name: LISA LUCERO Rep #: [id number] : 1955 69 From: Kym Norton MD PCP: Dr. Phuc Martines, DO Status:ADM IN Location: [place] [address] HPI - General General Date of Admission: 02/19/25 Date of Service: 02/19/25 Chief Complaint: Increase shortness of breath and lower extremity swelling HPI Narrative LISA LUCERO, is a 69-year-old female with a history of COPD on 3 L nasal cannula and hypertension who presented to [facility] ED 02/19/2025 with increased shortness of breath [...] not note any history of withdrawal symptoms. [facility] Medical History COPD (chronic obstructive pulmonary disease) [...] PRN dry 0 02/19/25 Unknown History aerosol (Lawndale Saline) nasal passages triamcinolone acetonide 0.5 % [...] any numbness/tingling (more content not included)... Normal [facility] Influenza virus A and B and SARS-CoV-2 (COVID-19) and Respiratory syncytial virus RNAOrdered By: Linwood Ivy on 02-19-2025 SARS-CoV-2 (COVID-19) RNA RENETTA+probe Ql (Unsp spec) [facility] International normalized rat io (INR) calculationOrdered By: Linwood Ivy on 02-19-2025 INR Coag (Bld) [Relative time] 1.0 {INR} [facility] Ketones Test strip Ql (U)Ord ered By: Linwood Ivy on 02-19-2025 Ketones Ql (U) Negative Negative [facility] L499.0042on 02-19-2025 Trop T High Sen < 6 Normal <=14 [facility] Comment on above: Performed By: #### L 499.0042 #### [facility] [place], [address] L499.0043on 02-19-2025 Trop T High Sen < 6 Normal <=14 [facility] Comment on above: Performed By: #### L 499.0043 #### [facility] [address] [place], [address] L501.4021on 02-19-2025 Trop T High Sen < 6 Normal <=14 [facility] Comment on above: Performed By: #### L 500.2500, L100.0100 #### [facility] [address] [place], [address] L503.7505on 02-19-2025 Natriuretic peptide B (Bld) [Mass/Vol] 529 pg/mL Normal <=900 [facility] Comment on above: Result Comment: Hear t Failure Unlikely: < 300 pg/mL Heart Failure Likely < 50 Years: > 450 pg/mL 50-75 Years: > 900 pg/mL >75 Years: > 1800 pg/mL Performed By: #### L 500.2500, L100.0100 #### [facility] [address] [place], [address] Lactic Acidon 02-19-2025 Lactate [Moles/Vol] 1.5 mmol/L Normal 0.0-2.0 [facility] Comment on above: Order Comment: Y Performed By: #### L 500.2500, L100.0100 #### [facility] [address] [place], [address] Lactic acid measurementOrder ed By: Linwood Ivy on 02-19-2025 Lactate [Moles/Vol] 1.5 mmol/L 0.0-2.0 [facility] M100.678on 02-19-2025 M100.678 Pending SARS-CoV-2 (COVID 19) Negative INFLUENZA A Negative INFLUENZA B Negative RSV PCR Negative Normal [facility] Comment on above: Performed By: #### L 500.2500, L100.0100 #### [facility] [address] [place], [address] Microscopic analysis of urin e for red blood cells (RBC)Ordered By: Linwood Ivy on 02-19-2025 Microscopic analysis of urine for red blood cells (RBC) 0 SEEN /hpf 0-5 [facility] Urine RBC 0 SEEN /hpf 0-5 [facility] Mucus LM Ql (Urine sed)Order ed By: Linwood Ivy on 02-19-2025 Mucus Ql (Urine sed) 0 SEEN /hpf [facility] Natriuretic peptide.B prohor gonzalo N-Terminal [Mass/Vol]Ordered By: Linwood Ivy on 02-19-2025 Natriuretic peptide B (Bld) [Mass/Vol] 529 pg/mL <900 [facility] Comment on above: Heart Failure Unlike ly: < 300 pg/mLHeart Failure Likely< 50 Years: > 450 pg/mL50-75 Years: > 900 pg/mL>75 Years: > 1800 pg/mL Natriuretic peptide.B prohor gonzalo N-Terminal [Mass/volume] in Serum or PlasmaOrdered By: Linwood Ivy on 02-19-2025 Natriuretic peptide.B prohormone N-Terminal [Mass/Vol] 529 pg/mL <900 [facility] Comment on above: Heart Failure Unlike ly: < 300 pg/mLHeart Failure Likely< 50 Years: > 450 pg/mL50-75 Years: > 900 pg/mL>75 Years: > 1800 pg/mL Nitrite Test strip Ql (U)Ord ered By: Linwood Ivy on 02-19-2025 Nitrite Ql (U) Negative Negative [facility] Partial Thromboplast Timeon 02-19-2025 aPTT Coag (Bld) [Time] 27.1 s Normal 24.1-36.2 [facility] Comment on above: Performed By: #### L 500.2500, L100.0100 #### [facility] [place], [address] Protein Test strip Ql (U)Ord ered By: Linwood Ivy on 02-19-2025 Protein Ql (U) Negative Negative [facility] Prothrombin Time w/INRon INR Coag (PPP) [Relative time] 1.0 {INR} Normal [facility] Comment on above: Performed By: #### L 500.2500, L100.0100 #### [facility] [address] [place], [address] PT Coag (PPP) [Time] 13.4 s Normal 11.7-14.9 [facility] Comment on above: Performed By: #### L 500.2500, L100.0100 #### [facility] [address] [place], [address] Prothrombin timeOrdered By: Linwood Ivy on 02-19-2025 PT Coag (PPP) [Time] 13.4 s 11.7-14.9 [facility] Squamous epithelial cells de tection in urine sediment by light microscopyOrdered By: Linwood Ivy on 02-19-2025 Epithelial cells.squamous LM Ql (Urine sed) 0-5 SEEN /hpf 5-10 [facility] Troponin T.cardiac High sens itivity method [Mass/Vol]Ordered By: Linwood Ivy on 02-19-2025 Troponin T High Sensitivity 4 Hour < 6 ng/L <14 [facility] Troponin T High Sensitivity 2 Hour < 6 ng/L <14 [facility] Troponin T High Sensitivity < 6 ng/L <14 [facility] Troponin T.cardiac [Mass/vol ume] in Serum or Plasma by High sensitivity methodOrdered By: Linwood Ivy on 02-19-2025 Troponin T.cardiac High sensitivity method [Mass/Vol] < 6 ng/L <14 [facility] Troponin T.cardiac High sensitivity method [Mass/Vol] < 6 ng/L <14 [facility] Troponin T.cardiac High sensitivity method [Mass/Vol] < 6 ng/L <14 [facility] Urinalysis, Completeon 02-19 EPI,SQUAMOUS 0-5 SEEN Normal 5-10 [facility] Comment on above: Order Comment: Blood cultures x2 from two different sites Performed By: #### L 500.2500, L100.0100 #### [facility] [address] [place], [address] WBC 0-5 SEEN Normal 0-5 [facility] Comment on above: Order Comment: Blood cultures x2 from two different sites Performed By: #### L 500.2500, L100.0100 #### [facility] [address] [place], [address] BACTERIA 0 SEEN Normal None Seen [facility] Comment on above: Order Comment: Blood cultures x2 from two different sites Performed By: #### L 500.2500, L100.0100 #### [facility] [address] [place], [address] Mucus Ql (Urine sed) 0 SEEN Normal [facility] Comment on above: Order Comment: Blood cultures x2 from two different sites Performed By: #### L 500.2500, L100.0100 #### [facility] [address] [place], [address] RBC 0 SEEN Normal 0-5 [facility] Comment on above: Order Comment: Blood cultures x2 from two different sites Performed By: #### L 500.2500, L100.0100 #### [facility] [address] [place], [address] Urine blood detectionOrdered By: Linwood Ivy on 02-19-2025 Urine Occult Blood Negative Negative [facility] Urine clarityOrdered By: Melissa Ivy on 02-19-2025 Clarity (U) Clear Clear [facility] Urine color determinationOrd ered By: Linwood Ivy on 02-19-2025 Color (U) Straw Yellow [facility] Urine cultureOrdered By: Melissa Ivy on 02-19-2025 Bacteria identified Cx Nom (U) Mixed Gram Pos & Gram Neg Org Abnormal [facility] Urine glucose detectionOrder ed By: Linwood Ivy on 02-19-2025 Glucose Ql (U) Normal mg/dl Normal [facility] Urine leukocyte esterase det ection by dipstickOrdered By: Linwood Ivy on 02-19-2025 Leukocyte esterase Test strip Ql (U) 25 /ul High Negative [facility] Urine pHOrdered By: Linwood cole on 02-19-2025 pH (U) 6.0 [pH] 5.0 - 8.0 [facility] Urine sediment bacteria coun t by microscopy (number/high power field)Ordered By: Linwood Ivy on 02-19-2025 Bacteria LM.HPF (Urine sed) [#/Area] 0 /[HPF] None Seen [facility] Urine specific gravity measu rementOrdered By: Linwood Ivy on 02-19-2025 Specific gravity (U) [Rel density] 1.010 1.002-1.03 0 [facility] Urine urobilinogen measureme ntOrdered By: Linwood Ivy on 02-19-2025 Urobilinogen Ql (U) Normal mg/dl Normal [facility] Urobilinogen Ql (U)Ordered B y: Linwood Ivy on 02-19-2025 Urine Urobilinogen Normal mg/dl Normal [facility] White blood cell countOrdere d By: Linwood Ivy on 02-19-2025 Urine WBC 0-5 SEEN /hpf 0-5 [facility] White blood cell count 0-5 SEEN /hpf 0-5 [facility] aPTT Coag (PPP) [Time]Ordere d By: Linwood Ivy on 02-19-2025 aPTT Coag (Bld) [Time] 27.1 s 24.1-36.2 [facility] CNOVon 01-25-2025 CNOV Office Visit (PULMWS ) LISA LUCERO ([id number]) 1955 F Date Time Provider Department 01/25/25 11:00 AM MARICRUZ CAMP During your visit today, we recorded the following information about you: Pulse Blood pressure Weight Height 88/minute 131/76 120.4 kg 1.626 m Maricruz Cmap APRN.[employer]ANT OPERATOR 01/25/2025 12:28 PM Signed Chief Complaint: 3 [...] activities of daily living. Modified Medical Research [place] Dyspnea Scale (MMRC) On level ground I [...] disease) (HCC) 02/03/2010 Coronary artery disease No [place], CHF. No heart cath. Diverticulosis of colon [...] to 08/29/2022. Prior PFTS: SPIROMETRY BASELINE ONLY ([id number]) - ordered on 03/16/22 No textual results for order. SPIROMETRY BASELINE ONLY ([id number]) - ordered on 03/31/20 [facility] [address] [place] [address] Test Date: (more content not included)... Normal [facility] CT LUNG FOLLOWUP WO IVCONon 01-25-2025 CT LUNG FOLLOWUP WO IVCON * * *Final Report* * * DATE OF EXAM: Jan 25 2025 11:06AM [facility] 0561 - CT LUNG FOLLOWUP WO IVCON / PROCEDURE REASON: Lung nodule, < 6mm, high cancer risk * * * * Physician Interpretation * * * * EXAMINATION: CT LUNG FOLLOWUP WO IVCON CLINICAL HISTORY: Lung nodules Technique: Spiral CT acquisition of the chest from the thoracic inlet to the upper abdomen without contrast. MQ: [id number]_6 Followup LDCT Patient characteristics: * Irsp-yw-Hbjtc: 1955; Age at exam: 69 years * Gender: Female * Lung Disease: Asymptomatic (no signs or symptoms of lung disease) * Number of Pack Years: 38 * Current smoker (=0) or Number of Years since Quit: 15 * Ordering provider and NPI: MARICRUZ CAMP [id number] * Interpreting radiologist and NPI: Nicole [id number] Exam acquisition parameters: * Exam Date: 01/25/2025 11:06 AM * Site: [facility] * * CT System Turbine Attendant: Siemens * CT System Model: Sensation * [...] Recommendations: Followup LDCT in 6 months Reference: [employer]. Lung CT Screening Reporting and Data System (Lung-RADS). Available at: http://www.acr.org/Quality-Sa fety/Resources/LungRADS [employer] Extension Specialist: PAT Transcribe Date/Time: Jan 25 2025 11:45A Dictated by : VIDLA PULLIAM MD This examination was interpreted and the report reviewed and electronically signed by: VIDAL PULLIAM MD on Jan 25 2025 11:51AM EST [id number] Normal [facility] CT Lung parenchyma WO contra ston 01-25-2025 IMPRESSION: LungRADS category: 3 LungRADS modifier: None LungRADS 0 reason: n/a Recommendations: Followup LDCT in 6 months Reference: [employer]. Lung CT Screening Reporting and Data System (Lung-RADS). Available at: http://www.acr.org/Quality-Sa fety/Resources/LungRADS [employer]il Fertility Extension Specialist: PSCB Transcribe Date/Time: Jan 25 2025 11:45A Dictated by : VIDAL PULLIAM MD This examination was interpreted and the report reviewed and electronically signed by: VIDAL PULLIAM MD on Jan 25 2025 11:51AM [facility] OF RADIOLOG[facility] * * *Final Report* * * DATE OF EXAM: Jan 25 2025 11:06AM [facility] 0561 - CT LUNG FOLLOWUP [facility] / PROCEDURE REASON: Lung nodule, < 6mm, high cancer risk * * * * Physician Interpretation * * * * EXAMINATION: CT LUNG FOLLOWUP WO IVCON CLINICAL HISTORY: Lung nodules Technique: Spiral CT acquisition of the chest from the thoracic inlet to the upper abdomen without contrast. MQ: CTLCS_6 Followup LDCT Patient characteristics: * Bihi-ap-Otzxk: 1955; Age at exam: 69 years * Gender: Female * Lung Disease: Asymptomatic (no signs or symptoms of lung disease) * Number of Pack Years: 38 * Current smoker (=0) or Number of Years since Quit: 15 * Ordering provider and NPI: MARICRUZ CAMP [id number] * Interpreting radiologist and NPI: Nicole [id number] Exam acquisition parameters: * Exam Date: 01/25/2025 11:06 AM * Site: [facility] * * CT System Turbine Attendant: Siemens * CT System Model: Sensation * [...] opacities likely atelectasis. DIVISION OF RADIOLOGY Provider, [facility] - 01/25/2025 * * *Final Report* * * DATE OF EXAM: Jan 25 2025 11:06AM [facility] 0561 - CT LUNG FOLLOWUP [facility] / PROCEDURE REASON: Lung nodule, < 6mm, high cancer risk * * * * Physician Interpretation * * * * EXAMINATION: CT LUNG FOLLOWUP WO [facility] CLINICAL HISTORY: Lung nodules Technique: Spiral CT acquisition of the chest from the thoracic inlet to the upper abdomen without contrast. MQ: CTLCS_6 Followup LDCT Patient characteristics: * Anpf-dp-Umnxo: 1955; Age at exam: 69 years * Gender: Female * Lung Disease: Asymptomatic (no signs or symptoms of lung disease) * Number of Pack Years: 38 * Current smoker (=0) or Number of Years since Quit: 15 * Ordering provider and NPI: MARICRUZ ACMP [id number] * Interpreting radiologist and NPI: Nicole [id number] Exam acquisition parameters: * Exam Date: 01/25/2025 11:06 AM * Site: [facility] * * CT System Turbine Attendant: Siemens * CT System Model: Sensation * [...] Recommendations: Followup LDCT in 6 months Reference: [employer]. Lung CT Screening Reporting and Data System (Lung-RADS). Available at: http://[email or web address].org/Quality-[email or web address] fety/Resources/LungRADS [employer] Extension Specialist: PAT Transcribe Date/Time: Jan 25 2025 11:45A Dictated by : VIDAL PULLIAM MD This examination was interpreted and the report reviewed and electronically signed by: VIDAL PULLIAM MD on Jan 25 2025 11:51AM EST [facility] Radiology Study observation (narrative) [facility] CT Lung parenchyma WO contra stOrdered By: Ccf Provider on 01-25-2025 [facility] CNOVon 01-20-2025 CNOV Office Visit (FAMPWS ) LISA LUCERO ([id number]) 1955 F Date Time Provider Department 01/20/25 [...] is currently diet controlled 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 Feels she is coping okay. Has support from her children COPD oxygen dependent, stage 3., seeing Physician Office Assistant- recently had jaziel increased and feels this is helping her PAST MEDICAL HISTORY Diagnosis Date Chronic hypoxemic respiratory failure (HCC) COPD (chronic obstructive pulmonary disease) (HCC) 02/03/2010 Coronary artery disease No [place], CHF. No heart cath. Diverticulosis of colon [...] hours as needed for wheezing/shortness of breath. ueifhmcbjam-xogapkqvp-wxwxlhz r (TRELEGY ELLIPTA) 200-62.5-25 mcg inhalation powder [...] kit, including (more content not included)... Normal [facility] Folate SerPl-mCncon 01-21-20 25 Folate [Mass/Vol] 18.5 ng/mL Normal >4.7 [facility] Comment on above: Order Comment: Speci men Type: BLOOD SPECIMEN Ordering Facility: [facility] Address: [address] [place] [address] Performed By: #### 3 024-7, 3051-0, 75264-7, 3016-3 #### [facility] CLIA [id number] [address] [place] [address] [place] Iron and Iron binding capaci ty panelon 01-20-2025 Iron [Mass/Vol] 92 ug/dL Normal 41-186 [facility] Comment on above: Order Comment: Speci men Type: BLOOD SPECIMEN Ordering Facility: [facility] Address: [address] [place] [address] Performed By: #### 3 024-7, 3051-0, 13341-7, 3016-3 #### [facility] CLIA [id number] [address] [place] [address] [place] Iron binding capacity [Mass/Vol] 403 ug/dL High 232-386 [facility] Comment on above: Order Comment: Speci men Type: BLOOD SPECIMEN Ordering Facility: [facility] Address: [address] [place] [address] Performed By: #### 3 024-7, 3051-0, 68308-2, 3016-3 #### [facility] CLIA [id number] [address] [place] [address] [place] Iron/TIBC [Molar ratio] 22.8 % Normal 15.0-57.0 [facility] Comment on above: Order Comment: Speci men Type: BLOOD SPECIMEN Ordering Facility: [facility] Address: [address] [place] [address] Performed By: #### 3 024-7, 3051-0, 07019-5, 6-3 #### [facility] CLIA [id number] [address] [place] [address] [place] T3Free SerPl-mCncon 01-21-20 25 Free T3 [Mass/Vol] 2.9 pg/mL Normal 2.3-4.[address] [facility] Comment on above: Order Comment: Speci men Type: BLOOD SPECIMEN Ordering Facility: [facility] Address: [address] [place] [address] Performed By: #### 3 024-7, 3051-0, 25835-9, 6-3 #### [facility] CLIA [id number] [address] [place] [address] [place] T4 Free SerPl-mCncon 025 Free T4 [Mass/Vol] 0.9 ng/dL Normal 0.9-1.[address] [facility] Comment on above: Order Comment: Speci men Type: BLOOD SPECIMEN Ordering Facility: [facility] Address: [address] [place] [address] Performed By: #### 3 024-7, 305-0, 47043-6, 6-3 #### [facility] CLIA [id number] [address] [place] [address] [place] TSH SerPl-aCncon 01-20-2025 TSH Qn 2.860 m[IU]/L Normal 0.270-4.20 0 [facility] Comment on above: Order Comment: Speci men Type: BLOOD SPECIMEN Ordering Facility: [facility] Address: [address] [place] [address] Performed By: #### 3 024-7, 3051-0, 03408-1, 6-3 #### [facility] CLIA [id number] [address] [place] [address] [place] Vit B12 SerPl-mCncon 025 Cobalamin (Vitamin B12) [Mass/Vol] 940 pg/mL Normal 232-1245 [facility] Comment on above: Order Comment: Speci men Type: BLOOD SPECIMEN Ordering Facility: [facility] Address: [address] [place] [address] Performed By: #### 3 024-7, 3051-0, 07185-5, 3016-3 #### [facility] CLIA [id number] [address] [place] [address] [place] CBC W Auto Differential pane l (Bld)on 01-13-2025 Basophils (Bld) [#/Vol] 0.06 10*3/uL Normal <0.11 [facility] Comment on above: Order Comment: Speci men Type: BLOOD SPECIMEN Ordering Facility: [facility] Address: [address] [place] [address] Performed By: #### 3 024-7, 3051-0, 18767-1, 3016-3 #### [facility] CLIA [id number] [address] [place] [address] [place] Basophils/100 WBC (Bld) 0.8 % Normal [facility] Comment on above: Order Comment: Speci men Type: BLOOD SPECIMEN Ordering Facility: [facility] Address: [address] [place] [address] Performed By: #### 3 024-7, 3051-0, 22333-4, 3016-3 #### [facility] CLIA [id number] [address] [place] [address] [place] Differential cell count method Nom (Bld) Auto Normal [facility] Comment on above: Order Comment: Speci men Type: BLOOD SPECIMEN Ordering Facility: [facility] Address: [address] [place] [address] Performed By: #### 3 024-7, 3051-0, 11056-6, 3016-3 #### [facility] CLIA [id number] [address] [place] [address] [place] Eosinophils (Bld) [#/Vol] 0.20 10*3/uL Normal <0.46 [facility] Comment on above: Order Comment: Speci men Type: BLOOD SPECIMEN Ordering Facility: [facility] Address: [address] [place] [address] Performed By: #### 3 024-7, 3051-0, 15944-6, 3016-3 #### [facility] CLIA [id number] [address] [place] [address] [place] Eosinophils/100 WBC (Bld) 2.6 % Normal [facility] Comment on above: Order Comment: Speci men Type: BLOOD SPECIMEN Ordering Facility: [facility] Address: [address] [place] [address] Performed By: #### 3 024-7, 3051-0, 09588-3, 3016-3 #### [facility] CLIA [id number] [address] [place] [address] [facility] Erythrocyte distribution width (RBC) [Ratio] 14.6 % Normal 11.5-15.0 [facility] Comment on above: Order Comment: Speci men Type: BLOOD SPECIMEN Ordering Facility: [facility] Address: [address] [place] [address] Performed By: #### 3 024-7, 3051-0, 00676-8, 3016-3 #### [facility] CLIA [id number] [address] [place] [address] [place] Hematocrit (Bld) [Volume fraction] 46.5 % High 36.0-46.0 [facility] Comment on above: Order Comment: Speci men Type: BLOOD SPECIMEN Ordering Facility: [facility] Address: [address] [place] [address] Performed By: #### 3 024-7, 3051-0, 57885-4, 3016-3 #### [facility] CLIA [id number] [address] [place] [address] [place] Hemoglobin (Bld) [Mass/Vol] 14.3 g/dL Normal 11.5-15.5 [facility] Comment on above: Order Comment: Speci men Type: BLOOD SPECIMEN Ordering Facility: [facility] Address: [address] [place] [address] Performed By: #### 3 024-7, 3051-0, 34638-7, 3016-3 #### [facility] CLIA [id number] [address] [place] [address] [place] Immature granulocytes (Bld) [#/Vol] 10*3/uL Normal <0.10 [facility] Comment on above: Order Comment: Speci men Type: BLOOD SPECIMEN Ordering Facility: [facility] Address: [address] [place] [address] Performed By: #### 3 024-7, 3051-0, 52905-2, 3016-3 #### [facility] CLIA [id number] [address] [place] [address] [place] Immature granulocytes/100 WBC (Bld) 0.1 % Normal [facility] Comment on above: Order Comment: Speci men Type: BLOOD SPECIMEN Ordering Facility: [facility] Address: [address] [place] [address] Performed By: #### 3 024-7, 3051-0, 16118-2, 3016-3 #### [facility] CLIA [id number] [address] [place] [address] [place] Lymphocytes (Bld) [#/Vol] 1.28 10*3/uL Normal 1.00-4.00 [facility] Comment on above: Order Comment: Speci men Type: BLOOD SPECIMEN Ordering Facility: [facility] Address: [address] [place] [address] Performed By: #### 3 024-7, 3051-0, 68420-0, 3016-3 #### [facility] CLIA [id number] [address] [place] [address] [place] Lymphocytes/100 WBC (Bld) 16.9 % Normal [facility] Comment on above: Order Comment: Speci men Type: BLOOD SPECIMEN Ordering Facility: [facility] Address: [address] [place] [address] Performed By: #### 3 024-7, 3051-0, 57402-6, 3016-3 #### [facility] CLIA [id number] [address] [place] [address] [place] MCH (RBC) [Entitic mass] 30.6 pg Normal 26.0-34.0 [facility] Comment on above: Order Comment: Speci men Type: BLOOD SPECIMEN Ordering Facility: [facility] Address: [address] [place] [address] Performed By: #### 3 024-7, 3051-0, 12950-1, 6-3 #### [facility] CLIA [id number] [address] [place] [address] [place] MCHC (RBC) [Mass/Vol] 30.8 g/dL Normal 30.5-36.0 [facility] Comment on above: Order Comment: Speci men Type: BLOOD SPECIMEN Ordering Facility: [facility] Address: [address] [place] [address] Performed By: #### 3 024-7, 3051-0, 45548-0, 6-3 #### [facility] CLIA [id number] [address] [place] [address] [place] MCV (RBC) [Entitic vol] 99.4 fL Normal 80.0-100.0 [facility] Comment on above: Order Comment: Speci men Type: BLOOD SPECIMEN Ordering Facility: [facility] Address: [address] [place] [address] Performed By: #### 3 024-7, 3051-0, 14860-8, 3016-3 #### [facility] CLIA [id number] [address] [place] [address] [place] Monocytes (Bld) [#/Vol] 0.75 10*3/uL Normal <0.87 [facility] Comment on above: Order Comment: Speci men Type: BLOOD SPECIMEN Ordering Facility: [facility] Address: [address] [place] [address] Performed By: #### 3 024-7, 3051-0, 82360-5, 3016-3 #### [facility] CLIA [id number] [address] [place] [address] [place] Monocytes/100 WBC (Bld) 9.9 % Normal [facility] Comment on above: Order Comment: Speci men Type: BLOOD SPECIMEN Ordering Facility: [facility] Address: [address] [place] [address] Performed By: #### 3 024-7, 3051-0, 65926-6, 6-3 #### [facility] CLIA [id number] [address] [place] [address] [place] Neutrophils (Bld) [#/Vol] 5.27 10*3/uL Normal 1.45-7.50 [facility] Comment on above: Order Comment: Speci men Type: BLOOD SPECIMEN Ordering Facility: [facility] Address: [address] [place] [address] Performed By: #### 3 024-7, 3051-0, 85464-3, 6-3 #### [facility] CLIA [id number] [address] [place] [address] [place] Neutrophils/100 WBC (Bld) 69.7 % Normal [facility] Comment on above: Order Comment: Speci men Type: BLOOD SPECIMEN Ordering Facility: [facility] Address: [address] [place] [address] Performed By: #### 3 024-7, 3051-0, 09643-8, 3016-3 #### [facility] CLIA [id number] [address] [place] [address] [place] Nucleated RBC (Bld) [#/Vol] 10*3/uL Normal <0.01 [facility] Comment on above: Order Comment: Speci men Type: BLOOD SPECIMEN Ordering Facility: [facility] Address: [address] [place] [address] Performed By: #### 3 024-7, 3051-0, 99436-6, 6-3 #### [facility] CLIA [id number] [address] [place] [address] [place] Nucleated RBC/100 WBC (Bld) [Ratio] 0.0 /100 WBC Normal [facility] Comment on above: Order Comment: Speci men Type: BLOOD SPECIMEN Ordering Facility: [facility] Address: [address] [place] [address] Performed By: #### 3 024-7, 3051-0, 88041-2, 6-3 #### [facility] CLIA [id number] [address] [place] [address] [place] Platelet mean volume (Bld) [Entitic vol] 11.6 fL Normal 9.0-12.7 [facility] Comment on above: Order Comment: Speci men Type: BLOOD SPECIMEN Ordering Facility: [facility] Address: [address] [place] [address] Performed By: #### 3 024-7, 3051-0, 60506-4, 6-3 #### [facility] CLIA [id number] [address] [place] [address] [place] Platelets (Bld) [#/Vol] 266 10*3/uL Normal 150-400 [facility] Comment on above: Order Comment: Speci men Type: BLOOD SPECIMEN Ordering Facility: [facility] Address: [address] [place] [address] Performed By: #### 3 024-7, 3051-0, 01406-7, 6-3 #### [facility] CLIA [id number] [address] [place] [address] [place] RBC (Bld) [#/Vol] 4.68 10*6/uL Normal 3.90-5.20 [facility] Comment on above: Order Comment: Speci men Type: BLOOD SPECIMEN Ordering Facility: [facility] Address: [address] [place] [address] Performed By: #### 3 024-7, 3051-0, 19457-7, 3016-3 #### [facility] CLIA [id number] [address] [place] [address] [place] WBC (Bld) [#/Vol] 7.57 10*3/uL Normal 3.70-11.00 [facility] Comment on above: Order Comment: Speci men Type: BLOOD SPECIMEN Ordering Facility: [facility] Address: [address] [place] [address] Performed By: #### 3 024-7, 3051-0, 80308-9, 3016-3 #### [facility] CLIA [id number] [address] [place] [address] [place] Comprehensive metabolic 2000 panelon 01-13-2025 Albumin [Mass/Vol] 4.6 g/dL Normal 3.9-4.[address] [facility] Comment on above: Order Comment: Speci men Type: BLOOD SPECIMEN Ordering Facility: [facility] Address: [address] [place] [address] Performed By: #### 3 024-7, 3051-0, 10903-1, 3016-3 #### [facility] CLIA [id number] [address] [place] [address] [place] ALP [Catalytic activity/Vol] 77 U/L Normal 34-123 [facility] Comment on above: Order Comment: Speci men Type: BLOOD SPECIMEN Ordering Facility: [facility] Address: [address] [place] [address] Performed By: #### 3 024-7, 3051-0, 35671-4, 6-3 #### [facility] CLIA [id number] [address] [place] [address] [place] ALT [Catalytic activity/Vol] 27 U/L Normal 7-38 [facility] Comment on above: Order Comment: Speci men Type: BLOOD SPECIMEN Ordering Facility: [facility] Address: [address] [place] [address] Performed By: #### 3 024-7, 305-0, 30266-8, 6-3 #### [facility] CLIA [id number] [address] [place] [address] [place] Anion gap [Moles/Vol] 12 mmol/L Normal 8-15 [facility] Comment on above: Order Comment: Speci men Type: BLOOD SPECIMEN Ordering Facility: [facility] Address: [address] [place] [address] Performed By: #### 3 024-7, 3050-0, 26479-5, 6-3 #### [facility] CLIA [id number] [address] [place] [address] [place] AST [Catalytic activity/Vol] 24 U/L Normal 13-35 [facility] Comment on above: Order Comment: Speci men Type: BLOOD SPECIMEN Ordering Facility: [facility] Address: [address] [place] [address] Performed By: #### 3 024-7, 305-0, 70072-2, 6-3 #### [facility] CLIA [id number] [address] [place], [place] [address] [place] Bilirubin [Mass/Vol] 0.6 mg/dL Normal 0.2-1.3 [facility] Comment on above: Order Comment: Speci men Type: BLOOD SPECIMEN Ordering Facility: [facility] Address: [address] [place] [address] Performed By: #### 3 024-7, 305-0, 35369-2, 3016-3 #### [facility] CLIA [id number] [address] [place] [address] [place] Calcium [Mass/Vol] 10.0 mg/dL Normal 8.5-10.[address] [facility] Comment on above: Order Comment: Speci men Type: BLOOD SPECIMEN Ordering Facility: [facility] Address: [address] [place] [address] Performed By: #### 3 024-7, 305-0, 04320-0, 3 #### [facility] CLIA [id number] [address] [place] [address] [place] Chloride [Moles/Vol] 94 mmol/L Low 98-107 [facility] Comment on above: Order Comment: Speci men Type: BLOOD SPECIMEN Ordering Facility: [facility] Address: [address] [place] [address] Performed By: #### 3 024-7, 3050-0, 67707-2, 3 #### [facility] CLIA [id number] [address] [place] [address] [place] CO2 [Moles/Vol] 37 mmol/L High 22-30 [facility] Comment on above: Order Comment: Speci men Type: BLOOD SPECIMEN Ordering Facility: [facility] Address: [address] [place] [address] Performed By: #### 3 024-7, 305-0, 27414-9, 3 #### [facility] CLIA [id number] [address] [place], [place] [address] [place] Creatinine [Mass/Vol] 0.56 mg/dL Low 0.58-0.96 [facility] Comment on above: Order Comment: Speci men Type: BLOOD SPECIMEN Ordering Facility: [facility] Address: [address] [place] [address] Performed By: #### 3 024-7, 305-0, 70225-1, 3016-3 #### [facility] CLIA [id number] [address] [place] [address] [place] Creatinine and Glomerular filtration rate.predicted panel (S/P/Bld) 100 mL/min/1.73m??? Normal >=60 [facility] Comment on above: Order Comment: Xiao cook Type: BLOOD SPECIMEN Ordering Facility: [facility] Address: [address] [place] [address] Result Comment: Marcia mated Glomerular Filtration Rate [...] GFR. Performed By: #### 3 024-7, 3051-0, 71460-0, 3015-3 #### [facility] CLIA [id number] [address] [place] [address] [place] Glucose [Mass/Vol] 112 mg/dL High 74-[address] [facility] Comment on above: Order Comment: Xiao cook Type: BLOOD SPECIMEN Ordering Facility: [facility] Address: [address] [place] [address] Result Comment: The [place] [employer] (ADA) provides guidance for cutoff [...] Standards of Medical Care in Diabetes 2016, [place] [employer]. Diabetes Care. 2016.39(Suppl 1). Performed By: #### 3 024-7, 3051-0, 33926-7, 3015-3 #### [facility] CLIA [id number] [address] [place] [address] [place] Potassium [Moles/Vol] 4.3 mmol/L Normal 3.7-5.1 [facility] Comment on above: Order Comment: Speci men Type: BLOOD SPECIMEN Ordering Facility: [facility] Address: [address] [place] [address] Performed By: #### 3 024-7, 305-0, 66959-5, 3015-3 #### [facility] CLIA [id number] [address] [place], [place] [address] [place] Protein [Mass/Vol] 7.7 g/dL Normal 6.3-8.[address] [facility] Comment on above: Order Comment: Speci men Type: BLOOD SPECIMEN Ordering Facility: [facility] Address: [address] [place] [address] Performed By: #### 3 024-7, 305-0, 37371-5, 3015-3 #### [facility] CLIA [id number] [address] [place], [place] [address] [place] Sodium [Moles/Vol] 143 mmol/L Normal 136-[address] [facility] Comment on above: Order Comment: Speci men Type: BLOOD SPECIMEN Ordering Facility: [facility] Address: [address] [place] [address] Performed By: #### 3 024-7, 305-0, 90492-6, 3015-3 #### [facility] CLIA [id number] [address] [place], [place] [id number] [place] Urea nitrogen [Mass/Vol] 12 mg/dL Normal 7-21 [facility] Comment on above: Order Comment: Speci men Type: BLOOD SPECIMEN Ordering Facility: [facility] Address: [address] [place] [address] Performed By: #### 3 024-7, 305-0, 96495-2, 3015-3 #### [facility] CLIA [id number] [address] [place] [address] [place] HbA1c (Bld)on 01-13-2025 Average glucose Estimated from glycated hemoglobin (Bld) [Mass/Vol] 114 mg/dL Normal [facility] Comment on above: Order Comment: Xiao cook Type: BLOOD SPECIMEN Ordering Facility: [facility] Address: [address] [place] [address] Result Comment: eAG: (Estimated average glucose) is a calculated value from HgbA1c and is payroll representative of the average blood glucose level in the last 2-3 month period. Performed By: #### 5 5454-3 #### [facility] CLIA [id number] [address] [place] [address] [place] HbA1c (Bld) [Mass fraction] 5.6 % Normal 4.3-5.6 [facility] Comment on above: Order Comment: Xiao cook Type: BLOOD SPECIMEN Ordering Facility: [facility] Address: [address] [place] [address] Result Comment: Amer [place] Diabetes Association guidelines indicate that patients with HgbA1c in the range 5.7-6.4% are at increased risk for development of diabetes, and intervention by lifestyle modification may be beneficial. HgbA1c greater or equal to 6.5% is considered diagnostic of diabetes. Performed By: #### 5 5454-3 #### [facility] CLIA [id number] [address] [place] [address] [place] Lipid 1996 panelon 5 Cholesterol [Mass/Vol] 233 mg/dL High <200 [facility] Comment on above: Order Comment: Xiao cook Type: BLOOD SPECIMEN Ordering Facility: [facility] Address: [address] [place] [address] Result Comment: <200 mg/dL, Desirable 200-239 mg/dL, Borderline high >239 mg/dL, High Performed By: #### 3 024-7, 3051-0, 20624-2, 3016-3 #### [facility] CLIA [id number] [facility] [address] OF [facility] Cholesterol in HDL [Mass/Vol] 91 mg/dL Normal >39 [facility] Comment on above: Order Comment: Xiao joey Type: BLOOD SPECIMEN Ordering Facility: [facility] Address: [address] [place] [address] Result Comment: 40-5 9 mg/dL, Acceptable >59 mg/dL, High: Negative risk factor for coronary heart disease <40 mg/dL, Low: Positive risk factor for coronary heart disease Performed By: #### 3 024-7, 3051-0, 85762-6, 3016-3 #### [facility] CLIA [id number] [address] [place] [address] Cholesterol in LDL [Mass/Vol] 128 mg/dL High <100 [facility] Comment on above: Order Comment: Xiao joey Type: BLOOD SPECIMEN Ordering Facility: [facility] Address: [address] [place] [address] Result Comment: <100 mg/dL, Optimal 100-129 mg/dL, Near optimal/above optimal 130-159 mg/dL, Borderline high 160-189 mg/dL, High >189 mg/dL, Very high Secondary prevention optimal LDL Cholesterol levels are recommended to be < 70 mg/dL Performed By: #### 3 024-7, 3051-0, 22998-1, 3016-3 #### [facility] CLIA [id number] [address] [place] [address] OF [facility] Cholesterol in LDL/Cholesterol in HDL [Mass ratio] 1.41 {ratio} Normal <2.54 [facility] Comment on above: Order Comment: Xiao joey Type: BLOOD SPECIMEN Ordering Facility: [facility] Address: [address] [place] [address] Result Comment: Black novoa: 1. National Cholesterol Education Program ATP III Guideline At-A-Glance Quick Desk Reference: National Heart, Lung, and Blood Gilbert. National Institutes of Health. 2001: NIH Publication No. 01-3305. 2. An International Atherosclerosis Society position paper: global recommendations for the management of dyslipidemia: executive summary, Atherosclerosis. 2014: 232(2):410-413. Performed By: #### 3 024-7, 3051-0, 67332-2, 6-3 #### [facility] CLIA [id number] [address] [place] [address] [place] Cholesterol in VLDL [Mass/Vol] 14 mg/dL Normal <30 [facility] Comment on above: Order Comment: Speci men Type: BLOOD SPECIMEN Ordering Facility: [facility] Address: [address] [place] [address] Performed By: #### 3 024-7, 3050-0, 46829-0, 6-3 #### [facility] CLIA [id number] [address] [place] [address] [place] Cholesterol non HDL [Mass/Vol] 142 mg/dL High <130 [facility] Comment on above: Order Comment: Speci men Type: BLOOD SPECIMEN Ordering Facility: [facility] Address: [address] [place] [address] Result Comment: <130 mg/dL, Optimal 130-159 mg/dL, Near optimal/above optimal 160-189 mg/dL, Borderline high 190-219 mg/dL, High >219 mg/dL, Very high Secondary prevention optimal non HDL Cholesterol levels are recommended to be <100 mg/dL Performed By: #### 3 024-7, 3050-0, 13925-6, 6-3 #### [facility] CLIA [id number] [address] [place], [place] [address] [place] Cholesterol.total/Cho lesterol in HDL [Mass ratio] 2.56 {ratio} Normal <5.10 [facility] Comment on above: Order Comment: Speci men Type: BLOOD SPECIMEN Ordering Facility: [facility] Address: [address] [place] [address] Performed By: #### 3 024-7, 3051-0, 11793-7, 6-3 #### [facility] CLIA [id number] [address] [place] [address] [place] FASTING TIME 12 hrs Normal [facility] Comment on above: Order Comment: Speci men Type: BLOOD SPECIMEN Ordering Facility: [facility] Address: [address] [place] [address] Performed By: #### 3 024-7, 3051-0, 87299-6, 3016-3 #### [facility] CLIA [id number] [address] [place] [address] [place] Triglyceride [Mass/Vol] 72 mg/dL Normal <150 [facility] Comment on above: Order Comment: Speci men Type: BLOOD SPECIMEN Ordering Facility: [facility] Address: [address] [place] [address] Result Comment: <150 mg/dL, Normal 150-199 mg/dL, Borderline high 200-499 mg/dL, High >499 mg/dL, Very high Performed By: #### 3 024-7, 3051-0, 72531-1, 3016-3 #### [facility] CLIA [id number] [address] [place] [address] [place] CNOVon 12-25-2024 CNOV Office Visit (PULMWS ) LISA LUCERO ([id number]) 1955 F Date Time Provider Department 12/25/24 11:30 AM LISA GOODMAN PULMWS During your visit today, we recorded the following information about you: Pulse Respiration Blood pressure Weight 92/minute 20/minute 134/64 119.1 kg Lisa Goodman, SHERIFF OFFICER.[employer] OPERATOR 12/25/2024 12:29 PM Signed Pulmonary Medicine Patients name: Lisa Palumbo PCP: Phuc Martines DO CC: follow-up COPD HPI: Lisa Lucero is a 69 year old female former 82-njdy-xnmr smoker, quitting in 2008 with PMH significant [...] disease) (HCC) 02/03/2010 Coronary artery disease No [place], CHF. No heart cath. Diverticulosis of colon [...] ELLIPTA 100-62.5-25 mcg inhalation powder Generic drug: brnhwsyhbkn-rfuxcgokf-jviyyzn r USE 1 INHALATION DAILY INSTRUCTED triamcinolone [...] prior chest CT examinations is needed. Reference: [employer]. Lung CT Screening Reporting and Data System (Lung-RADS). Available at: http://www.acr.org/Quality-Sa fety/Resources/LungRADS Soil Fertility Extension Specialist: PAT Transcribe Date/Time: Oct 19 2024 11:21A Dictated by : VIDAL PULLIAM MD This examination was interpreted and the report reviewed and electronically signed by: VIDAL PULLIAM MD on Oct 19 2024 11:28AM EST Results-Findings * * *Final Report* * * DATE OF EXAM: Oct 19 2024 10:09AM [facility] 0562 - CT LUNG SCREEN WO IVCON / PROCEDURE REASON: Former cigarette smoker * * * * Physician Interpretation * * * * EXAMINATION: CHEST CT WITHOUT CONTRAST (LOW-DOSE CT LUNG CANCER SCREENING MICHAEL (more content not included)... Normal [facility] DBT Breast - bilateral scree camilon 12-03-2024 [...] Manish Quintana M.D. Electronically signed on: 12/03/2024 Soil Fertility Extension Specialist: SHAMEKA Transcrighazal Date/Time: Dec 03 2024 11:01A Dictated by: MNAISH QUINTANA MD This examination was interpreted and the report reviewed and electronically signed by: MANISH QUINTANA MD on Dec 03 2024 6:47PM [facility] DIVISION OF RADIOLOGY * * *Final Report* * * DATE OF EXAM: Dec 03 2024 11:38AM [facility] 0582 - ANUSHA SCREENING W ASHLEY / PROCEDURE REASON: Encounter for screening mammogram for breast cancer * * * * Physician Interpretation * * * * RESULT: [facility] [address] [place] [address] #[id number] - ANUSHA SCREENING W ASHLEY HISTORY: 69 [...] in either breast. DIVISION OF RADIOLOGY Provider, [facility] - 12/03/2024 * * *Final Report* * * DATE OF EXAM: Dec 03 2024 11:38AM [facility] 0582 - [facility] SCREENING W ASHLEY / PROCEDURE REASON: Encounter for screening mammogram for breast cancer * * * * Physician Interpretation * * * * RESULT: [place] [address] #[id number] - [facility] SCREENING W ASHLEY HISTORY: 69 year-old patient [...] Manish Quintana M.D. Electronically signed on: 12/03/2024 Soil Fertility Extension Specialist: SHAMEKA Transcribe Date/Time: Dec 03 2024 11:01A Dictated by: MANISH QUINTANA MD This examination was interpreted and the report reviewed and electronically signed by: MANISH QUINTANA MD on Dec 03 2024 6:47PM EST [facility] Radiology Study observation (narrative) [facility] DBT Breast - bilateral scree ningOrdered By: Cccoleen Provider on 12-03-2024 [facility] ANUSHA SCREENING W TOMOon 12-03 ANUSHA SCREENING W ASHLEY * * *Final Report* * * DATE OF EXAM: Dec 03 2024 11:38AM [facility] 0582 - ANUSHA SCREENING W ASHLEY / PROCEDURE REASON: Encounter for screening mammogram for breast cancer * * * * Physician Interpretation * * * * RESULT: [facility] [address] [place] [address] #[id number] - ANUSHA SCREENING W ASHLEY HISTORY: 69 [...] Manish Quintana M.D. Electronically signed on: 12/03/2024 Soil Fertility Extension Specialist: SHAMEKA Fanrighazal Date/Time: Dec 03 2024 11:01A Dictated by: MANISH QUINTANA MD This examination was interpreted and the report reviewed and electronically signed by: MANISH QUINTANA MD on Dec 03 2024 6:47PM EST [id number] Normal [facility] CNOVon 10-19-2024 CNOV Office Visit (PULMWS ) LISA LUCERO ([id number]) 1955 F Date Time Provider Department 10/19/24 [...] which included preparing to see the patient, qisb-he-yanu patient care, completing clinical documentation, performing a medically appropriate examination, counseling and educating the patient/family/caregiver, ordering medications, tests, or procedures, communicating with other HCPs (not separately reported), independently interpreting results (not separately reported), communicating results to the patient/family/caregiver, and care coordination (not separately reported). Maricruz Camp, JAKI.[facility] October 19, 2024 10:28 AM History [...] albuterol if feeling sick. Modified Medical Research [place] Dyspnea Scale (MMRC) I am too breathless [...] Medical Hi (more content not included)... Normal [facility] CT Chest for screening WO co ntraston 10-19-2024 IMPRESSION: LungRADS category: 0 LungRADS modifier: None LungRADS 0 reason: n/a Recommendations: Additional lung cancer screening CT images and/or comparison to prior chest CT examinations is needed. Reference: [employer]. Lung CT Screening Reporting and Data System (Lung-RADS). Available at: http://www.acr.org/Quality-Sa fety/Resources/LungRADS Soil Fertility Extension Specialist: PAT Transcribe Date/Time: Oct 19 2024 11:21A Dictated by : VIDAL PULLIAM MD This examination was interpreted and the report reviewed and electronically signed by: VIDAL PULLIAM MD on Oct 19 2024 11:28AM [facility] DIVISION OF RADIOLOGY * * *Final Report* * * DATE OF EXAM: Oct 19 2024 10:09AM [facility] 0562 - CT LUNG SCREEN [facility] / PROCEDURE REASON: Former cigarette smoker * [...] without contrast. MQ: CTLCS_6 Patient characteristics: * Ydgc-uo-Nxenq: 1955; Age at exam: 69 years * Gender: Female * Lung Disease: Asymptomatic (no signs or symptoms of lung disease) * Number of Pack Years: 38 * Current smoker (=0) or Number of Years since Quit: 15 * Ordering provider and NPI: MARICRUZ CAMP [id number] * Interpreting radiologist and NPI: Nicole [id number] Exam acquisition parameters: * Exam Date: 10/19/2024 10:09 AM * Site: [facility] * * CT System Turbine Attendant: Siemens * CT System Model: Sensation * [...] [* https://www.pettit-nhlbi.org/ca lcium/input.aspx] DIVISION OF RADIOLOGY Provider, [facility] - 10/19/2024 * * *Final Report* * * DATE OF EXAM: Oct 19 2024 10:09AM [facility] 0562 - CT LUNG SCREEN [facility] / PROCEDURE REASON: Former cigarette smoker * [...] without contrast. MQ: CTLCS_6 Patient characteristics: * Zvzv-yv-Xhyiz: 1955; Age at exam: 69 years * Gender: Female * Lung Disease: Asymptomatic (no signs or symptoms of lung disease) * Number of Pack Years: 38 * Current smoker (=0) or Number of Years since Quit: 15 * Ordering provider and NPI: MARICRUZ CAMP [id number] * Interpreting radiologist and NPI: Nicole [id number] Exam acquisition parameters: * Exam Date: 10/19/2024 10:09 AM * Site: [facility] * * CT System Turbine Attendant: Siemens * CT System Model: Sensation * [...] prior chest CT examinations is needed. Reference: [employer]. Lung CT Screening Reporting and Data System (Lung-RADS). Available at: http://www.acr.org/Quality-Sa fety/Resources/LungRADS Soil Fertility Extension Specialist: PAT Transcribe Date/Time: Oct 19 2024 11:21A Dictated by : VIDAL PULLIAM MD This examination was interpreted and the report reviewed and electronically signed by: VIDAL PULLIAM MD on Oct 19 2024 11:28AM EST [facility] Radiology Study observation (narrative) [facility] CT Chest for screening WO co ntrastOrdered By: Ccf Provider on 10-19-[address] [facility] [address] LUNG SCREEN WO IVCONon CT LUNG SCREEN WO IVCON * * *Final Report* * * DATE OF EXAM: Oct 19 2024 10:09AM [facility] 0562 - CT LUNG SCREEN WO [...] without contrast. MQ: CTLCS_6 Patient characteristics: * Epzo-so-Ymvsm: 1955; Age at exam: 69 years * Gender: Female * Lung Disease: Asymptomatic (no signs or symptoms of lung disease) * Number of Pack Years: 38 * Current smoker (=0) or Number of Years since Quit: 15 * Ordering provider and NPI: MARICRUZ CAMP [id number] * Interpreting radiologist and NPI: Nicole [id number] Exam acquisition parameters: * Exam Date: 10/19/2024 10:09 AM * Site: [facility] * * CT System Turbine Attendant: Siemens * CT System Model: Sensation * [...] prior chest CT examinations is needed. Reference: [employer]. Lung CT Screening Reporting and Data System (Lung-RADS). Available at: http://www.acr.org/Quality-Sa fety/Resources/LungRADS Soil Fertility Extension Specialist: PAT Transcribe Date/Time: Oct 19 2024 11:21A Dictated by : VIDAL PULLIAM MD This examination was interpreted and the report reviewed and electronically signed by: VIDAL PULLIAM MD on Oct 19 2024 11:28AM EST [id number] Normal [facility] CNOVon 06-26-2024 CNOV Office Visit (PULMWS ) LISA LUCERO ([id number]) 1955 F Date Time Provider Department 06/26/24 11:45 AM DIANA GONZALEZ PULMWS During your visit today, we recorded the following information about you: Pulse Respiration Blood pressure Weight 80/minute 15/minute 136/78 115.2 kg Diana Gonzalez MD 06/26/2024 2:11 PM Signed . Respiratory Gilbert Note Patient name: Lisa Lucero PCP: Phuc Martines DO CC: Follow-up COPD HPI: Lisa Lucero 68 year old female former 96-qodm-mbgw smoker, quitting in 2008 with PMH significant [...] DATE OF EXAM: Oct 08 2023 1:24PM [facility] 0562 - CT LUNG SCREEN WO [...] No date: Coronary artery disease Comment: No [place], CHF. No heart cath. No date: Diverticulosis [...] Take 1 tablet by mouth once daily. jrzgzxbttsi-zwcmkvyli-ppcnick r (TRELEGY ELLIPTA) 100-62.5-25 mcg inhalation powder [...] COMPOUNDED PRESC (more content not included)... Normal [facility] Culture, Blood (WB)on 2023 CUB Blood cultures x2 fr om two different sites No growth in 5 days. Normal [facility] Comment on above: Performed By: #### L 500.2500, L100.0100 #### [facility] [address] [place], [address] Basic Metabolic Profile (BMP )on 05-06-2024 BUN/CRE 19.6 RATIO Normal 08-16 [facility] Comment on above: Order Comment: Blood cultures x2 from two different sites Performed By: #### L 500.2500, L100.0100 #### [facility] [address] [place], [address] CA,Total 9.2 mg/dL Normal 8.5-10.1 [facility] Comment on above: Order Comment: Blood cultures x2 from two different sites Performed By: #### L 500.2500, L100.0100 #### [facility] [address] [place], [address] Chloride [Moles/Vol] 103 mmol/L Normal 98-107 [facility] Comment on above: Order Comment: Blood cultures x2 from two different sites Performed By: #### L 500.2500, L100.0100 #### [facility] [address] [place], [address] CO2 [Moles/Vol] 36.0 mmol/L High 21.0-32.0 [facility] Comment on above: Order Comment: Blood cultures x2 from two different sites Performed By: #### L 500.2500, L100.0100 #### [facility] [address] [place], [address] Creatinine [Mass/Vol] 0.66 mg/dL Normal 0.55-1.02 [facility] Comment on above: Order Comment: Blood cultures x2 from two different sites Result Comment: The validity of the calculated GFR GFRAA in patients over 70 years has not been determined. Clinical correlation is essential. Performed By: #### L 500.2500, L100.0100 #### [facility] [address] [place], [address] EST GFR - AA 114 mL/min Normal >60 [facility] Comment on above: Order Comment: Blood cultures x2 from two different sites Result Comment: Afri can [employer] GFR Calc Performed By: #### L 500.2500, L100.0100 #### [facility] [address] [place], [address] GAP 3 Low 5-15 [facility] Comment on above: Order Comment: Blood cultures x2 from two different sites Performed By: #### L 500.2500, L100.0100 #### [facility] [address] [place], [address] GFR/1.73 sq M.predicted among non-blacks MDRD (S/P/Bld) [Vol rate/Area] 95 mL/min/{1.73_m2} Normal >60 [facility] Comment on above: Order Comment: Blood cultures x2 from two different sites Result Comment: Non- GFR Calc Performed By: #### L 500.2500, L100.0100 #### [facility] [address] [place], [address] Glucose [Mass/Vol] 118 mg/dL High 74-106 [facility] Comment on above: Order Comment: Blood cultures x2 from two different sites Result Comment: Fast ing Glucose result from 100 to 125 mg/dL suggests IMPAIRED HOMEOSTASIS per A.D.A. criteria. Performed By: #### L 500.2500, L100.0100 #### [facility] [address] [place], [address] Potassium [Moles/Vol] 3.4 mmol/L Low 3.5-5.1 [facility] Comment on above: Order Comment: Blood cultures x2 from two different sites Performed By: #### L 500.2500, L100.0100 #### [facility] [address] [place], [address] Sodium [Moles/Vol] 142 mmol/L Normal 136-145 [facility] Comment on above: Order Comment: Blood cultures x2 from two different sites Performed By: #### L 500.2500, L100.0100 #### [facility] [address] [place], [address] Urea nitrogen [Mass/Vol] 13 mg/dL Normal 7-18 [facility] Comment on above: Order Comment: Blood cultures x2 from two different sites Performed By: #### L 500.2500, L100.0100 #### [facility] [address] [place], [address] CBC W/Diff, Automatedon 07-1 0-2024 Absolute Lymph 0.79 X10 3/uL Low 0.83-4.51 [facility] Comment on above: Performed By: #### L 500.2500, L100.0100 #### [facility] [address] [place], [address] Absolute Neut 5.7 X10 3/uL Normal 2.0-7.7 [facility] Comment on above: Performed By: #### L 500.2500, L100.0100 #### [facility] [address] [place], [address] Basophils/100 WBC (Bld) 0.7 % Normal 0-1 [facility] Comment on above: Performed By: #### L 500.2500, L100.0100 #### [facility] [address] [place], [address] Eosinophils/100 WBC (Bld) 1.5 % Normal 0-5 [facility] Comment on above: Performed By: #### L 500.2500, L100.0100 #### [facility] [address] [place], [address] Erythrocyte distribution width (RBC) [Ratio] 14.6 % Normal 11.6-14.6 [facility] Comment on above: Performed By: #### L 500.2500, L100.0100 #### [facility] [address] [place], [address] Hematocrit (Bld) [Volume fraction] 39.7 % Normal 37-47 [facility] Comment on above: Performed By: #### L 500.2500, L100.0100 #### [facility] [address], [address] Hemoglobin (Bld) [Mass/Vol] 13.0 g/dL Normal 12.0-15.0 [facility] Comment on above: Performed By: #### L 500.2500, L100.0100 #### [facility] [address] [place], [address] IG% 0.600 Normal 0.0-0.9 [facility] Comment on above: Result Comment: IG% - Immature Granulocytes (promyelocytes, myelocytes and metamyelocytes) > 1% indicates that a LEFT SHIFT is Present. Performed By: #### L 500.2500, L100.0100 #### [facility] [address], [address] Lymphocytes/100 WBC (Bld) 10.9 % Low 19-41 [facility] Comment on above: Performed By: #### L 500.2500, L100.0100 #### [facility] [address] [place], [address] MCH (RBC) [Entitic mass] 31.7 pg Normal 27.0-32.0 [facility] Comment on above: Performed By: #### L 500.2500, L100.0100 #### [facility] [address] [place], [address] MCHC (RBC) [Mass/Vol] 32.7 g/dL Normal 32-36 [facility] Comment on above: Performed By: #### L 500.2500, L100.0100 #### [facility] [address] [place], [address] MCV (RBC) [Entitic vol] 96.8 fL Normal 81-99 [facility] Comment on above: Performed By: #### L 500.2500, L100.0100 #### [facility] [address] [place], [address] Monocytes/100 WBC (Bld) 7.8 % Normal 0-10 [facility] Comment on above: Performed By: #### L 500.2500, L100.0100 #### [facility] [address] [place], [address] Neutrophils/100 WBC (Bld) 78.5 % High 47-70 [facility] Comment on above: Performed By: #### L 500.2500, L100.0100 #### [facility] [address] [place], [address] Nucleated RBC (Bld) [#/Vol] 0 10*3/uL Normal 0-5 [facility] Comment on above: Performed By: #### L 500.2500, L100.0100 #### [facility] [address] [place], [address] Platelet mean volume (Bld) [Entitic vol] 10.6 fL Normal 6.2-12.0 [facility] Comment on above: Performed By: #### L 500.2500, L100.0100 #### [facility] [address] [place], [address] Platelets (Bld) [#/Vol] 261 10*3/uL Normal 150-450 [facility] Comment on above: Performed By: #### L 500.2500, L100.0100 #### [facility] [address] [place], [address] RBC (Bld) [#/Vol] 4.10 10*6/uL Low 4.2-5.4 [facility] Comment on above: Performed By: #### L 500.2500, L100.0100 #### [facility] [address] [place], [address] RDW SD 52.0 fl High 35.1-43.9 [facility] Comment on above: Performed By: #### L 500.2500, L100.0100 #### [facility] [address] [place], [address] WBC (Bld) [#/Vol] 7.3 10*3/uL Normal 4.4-11.0 [facility] Comment on above: Performed By: #### L 500.2500, L100.0100 #### [facility] [address] [place], [address] Emergency Department Summary on 05-06-2024 Emergency Department Summary [facility] Medical Records Department [address] [place] [address] Emergency Department Summary 05/06/24 MR#: [id number] Acct: [id number] Name: LISA LUCERO Rep #: [id number] : 1955 68 From: Dane Kurtz DO [...] seen at the urgent care at the [facility] prior to starting the doxycycline. Patient [...] of Funtion Narrative Tetanus Immunization: 5-10 years [facility] Medical History (Updated 05/06/24 @ 11:43 by [...] the lo (more content not included)... Normal [facility] Bacteria Wnd Culton 04-26-20 24 Bacteria identified Cx Nom (Wound) ORGANISM ID: 1 Rare skin lyssa GRAM STAIN: No organisms seen No Polymorphonuclear Leukocytes Normal [facility] Comment on above: Performed By: #### 3 024-7, 3051-0, 87870-9, 3016-3 #### [facility] CLIA [id number] [address] [place] [address] [place] CNOVon 04-26-2024 CNOV Office Visit (UCWSTR ) LISA LUCERO ([id number]) 1955 F Date Time Provider Department 04/26/24 11:00 AM DAMON EUGENE [facility] During your visit today, we recorded the following information about you: Temperature Pulse Respiration Blood pressure 98.6 degrees 68/minute 20/minute 144/68 Weight 118 kg Quinton EugeneiniqueJAKI.RAILWAY TRACK PLANT OPERATOR 04/26/2024 11:15 AM Signed Subjective Patient came in with complaints of possible wound infection on the right calf. Patient says she fell 2 weeks ago. Patient says she has been treating at home with antibiotic ointment. Patient denies any fever chills nausea vomiting. The history is provided by the patient. No sign language translator was used. Review of Systems Constitutional: Negative. [...] disease) (HCC) 02/03/2010 Coronary artery disease No [place], CHF. No heart cath. Diverticulosis of colon [...] Take 1 tablet by mouth once daily. nodoijmqbsq-giakvhlci-qbwfleb r (TRELEGY ELLIPTA) 100-62.5-25 mcg inhalation powder [...] okay with this care plan. Damon Jas, SHERIFF OFFICER.RAILWAY TRACK PLANT OPERATOR Referring Provider: SELF [200] Allergies As of Date: 04/26/2024 Noted Allergy Reaction ALEVE (NAPROXEN) 05/31/2020 4 - Hives Comments: Hives, edema of hands within (more content not included)... Normal [facility] ANUSHA SCREENINGon 09-17-2023 [facility] CBC W Auto Differential pane l (Bld)on 08-14-2023 Basophils (Bld) [#/Vol] 0.06 10*3/uL <0.11 k/uL [facility] Basophils/100 WBC (Bld) 0.8 % [facility] Differential cell count method Nom (Bld) Auto [facility] Eosinophils (Bld) [#/Vol] 0.17 10*3/uL <0.46 k/uL [facility] Eosinophils/100 WBC (Bld) 2.3 % [facility] Erythrocyte distribution width (RBC) [Ratio] 14.0 % 11.5 - 15.0 % [facility] Hematocrit (Bld) [Volume fraction] 45.6 % 36.0 - 46.0 % [facility] Hemoglobin (Bld) [Mass/Vol] 14.5 g/dL 11.5 - 15.5 g/dL [facility] Immature granulocytes (Bld) [#/Vol] 0.04 10*3/uL <0.10 k/uL [facility] Immature granulocytes/100 WBC (Bld) 0.5 % [facility] Lymphocytes (Bld) [#/Vol] 1.10 10*3/uL 1.00 - 4.00 k/uL [facility] Lymphocytes/100 WBC (Bld) 14.8 % [facility] MCH (RBC) [Entitic mass] 31.6 pg 26.0 - 34.0 pg [facility] MCHC (RBC) [Mass/Vol] 31.8 g/dL 30.5 - 36.0 g/dL [facility] MCV (RBC) [Entitic vol] 99.3 fL 80.0 - 100.0 fL [facility] Monocytes (Bld) [#/Vol] 0.61 10*3/uL <0.87 k/uL [facility] Monocytes/100 WBC (Bld) 8.2 % [facility] Neutrophils (Bld) [#/Vol] 5.45 10*3/uL 1.45 - 7.50 k/uL [facility] Neutrophils/100 WBC (Bld) 73.4 % [facility] Nucleated RBC (Bld) [#/Vol] <0.01 k/uL [facility] Nucleated RBC/100 WBC (Bld) [Ratio] 0.0 /100 WBC [facility] Platelet mean volume (Bld) [Entitic vol] 11.7 fL 9.0 - 12.7 fL [facility] Platelets (Bld) [#/Vol] 222 10*3/uL 150 - 400 k/uL [facility] RBC (Bld) [#/Vol] 4.59 10*6/uL 3.90 - 5.20 m/uL [facility] WBC (Bld) [#/Vol] 7.43 10*3/uL 3.70 - 11.00 k/uL [facility] OXIMETRY WITH AMBULATIONon 0 06-13-2023 [facility] US ABD SPLEENon 03-06-2023 [facility] No Panel Informationon 10-10 [facility] XR Chest PA and Lateralon IMPRESSION: Overall findings unchanged. Soil Fertility Extension Specialist: PSCB Transcribe Date/Time: Oct 01 2022 5:09P Dictated by : MORAIMA CARDENAS MD This examination was interpreted and the report reviewed and electronically signed by: MORAIMA CARDENAS MD on Oct 01 2022 5:10PM [facility] DIVISION OF RADIOLOGY * * *Final [...] DIVISION OF RADIOLOGY Provider, Devi Lexie andrews Gilbert - 10/01/2022 * * *Final Report* * [...] tissues: Unremarkable. IMPRESSION IMPRESSION: Overall findings unchanged. Soil Fertility Extension Specialist: PAT Transcribe Date/Time: Oct 01 2022 5:09P Dictated by : MORAIMA CARDENAS MD This examination was interpreted and the report reviewed and electronically signed by: MORAIMA CARDENAS MD on Oct 01 2022 5:10PM EST [facility] XR Chest PA and LateralOrder ed By: Ccf Provider on 10-01-2022 [facility] XR Chest PA and Lateralon Radiology Study observation (narrative) [facility] ANUSHA SCREENINGon 09-11-2022 [facility] US ABD SPLEENon 09-03-[address] [facility] [address] CHEST WO IVCONon 08-30-20 Radiology Result ACTIONABLE Abnormal [facility] OXIMETRY WITH AMBULATIONon 0 03-16-2022 [facility] XR Foot - right AP and Later al and obliqueon 01-10-2021 IMPRESSION: Mild deg enerative changes Soil Fertility Extension Specialist: PAT Transcribe Date/Time: Jan 10 2021 11:21A [...] fracture. DIVISION OF RADIOLOGY Provider, Shannon [facility] - 01/10/2021 * * *Final Report* * [...] No fracture. IMPRESSION IMPRESSION: Mild degenerative changes Soil Fertility Extension Specialist: [facility] Transcribe Date/Time: Jan 10 2021 11:21A Dictated by : ROXANNE MARTEL MD This examination was interpreted and the report reviewed and electronically signed by: ROXANNE MARTEL MD on Jan 10 2021 11:23AM EST [facility] Radiology Study observation (narrative) [facility] XR Foot - right AP and Later al and obliqueOrdered By: Ccf Provider on 01-10-2021 [facility] ANES Regina 09-10-2018 ANES POST HNO ID: [id number] thor: Cornelio DangSerchinae: AnesthesiologyAuthor Type: AnesthesiologistType: Anesthesia [...] 10, 2018 : 1:54 PM PAGER/CONTACT #: [phone] [facility] ANES PREOPon 09-10-2018 ANES PREOP HNO ID: [id number] thor: Ann-Marie Garciaervice: AnesthesiologyAuthor Type: AnesthesiologistType: Anesthesia [...] FLANKIrritable Bowel SyndromeCopd (Chronic Obstructive Pulmonary Disease) ([facility])HypoxemiaFormer SmokerObstructive Sleep ApneaWell Adult ExamChronic Obstructive Pulmonary Disease ([facility])Obesity, Class III, BMI >= 40 (morbid obesity) E66.01Oxygen DependentAcute Bronchitis With Chronic Obstructive Pulmonary Disease (Copd) ([facility])Impaired Fasting GlucoseScreening for Colon CancerPAST MEDICAL HISTORYDiagnosis Date- COPD (chronic obstructive pulmonary disease) ([facility]) 02/03/2010- Coronary artery disease No [place], CHF. No heart cath.- Diverticulosis of colon (without mention of hemorrhage)- Essential hypertension, benign- Fibrocystic breast- Former smoker- Internal hemorrhoids without mention of complication- Leiomyoma of uterus, unspecified- Obstructive sleep apnea Mild. Not prescribed CPAP, only 2L nasal O2.PAST SURGICAL HISTORYProcedure Laterality Date- BREAST LUMPECTOMY HX Right 1997- COLONOSCOP W/ OR W/O [facility] SPEC 08/27/08 repeat due 2017- IMPACT TOOTH [...] to Encounter:Lactobacillus acidophilus (PROBIOTIC ORAL) Take by mouth.uvvwkdfvcdy-hsvgonrfu-q ilanter (TRELEGY ELLIPTA) 100-62.5-25 mcg dsdvInhale 1 Puff as instructed once daily.NYAMYC powder APPLY 1 APPLICATION TO AFFECTED AREA FOUR TIMES A DAY(Patient taking differently: prn)triamterene-hydrochloroth iazide 37.5-25 mg per capsule TAKE 1 CAPSULEDAILYCOMPOUNDED PRESCRIPTION Please do nocturnal oximetry on 2 L. DME: [facility].ipratropium-albut alan (DUONEB) 0.5 mg-3 mg(2.5 mg [...] September 10, 2018 : 11:06 AM CSN: [id number] Normal [facility] HISTORY PHYSICALon HISTORY PHYSICAL HNO ID: [id number] thor: Margot Rogerservice: General SurgeryAuthor Type: PhysicianType: HANDPFiled: 09/10/2018 10:34 AMNote Text:?HISTORY AND PHYSICAL?Lisa Sahni [id number]?REFERRING PHYSICIAN: Phuc Martines, DO?CHIEF COMPLAINT: Consult (Consult [...] (HCC) 02/03/2010- Coronary artery disease ?? No [place], CHF. No heart cath.- Diverticulosis of colon [...] Outpatient Prescriptions:Lactobacillus acidophilus (PROBIOTIC ORAL) Take by mouth.olqyxywnobe-ilxqqtxbl-x ilanter (TRELEGY ELLIPTA) 100-62.5-25 mcg dsdvInhale 1 Puff as instructed once daily.NYAMYC powder APPLY 1 APPLICATION TO AFFECTED AREA FOUR TIMES A DAYtriamterene-hydrochlorothi azide 37.5-25 mg per capsule TAKE 1 CAPSULEDAILYCOMPOUNDED PRESCRIPTION Please do nocturnal oximetry on 2 L. DME: [facility].ipratropium-albut alan (DUONEB) 0.5 mg-3 mg(2.5 mg [...] notes Sx?pelvic floor prolapse, recommend evaluation by RESEARCH TECH-patient states hasappt in September. COPD, on oxygen [...] me 1 weekpost operatively.? Basia Ely PA-C [facility] NURSING PROGon 09-10-2018 Protein mass conc HNO ID: [id number] Author: Kajal WhitfieldRn) HERRERA Rodney Service: Nursing Author Type: Registered Nurse Type: Nursing Progress Note Filed: 09/10/2018 1:11 PM Note Text: 1245 pt to PACU. TRIANA TCx4. Denies pain. PIV DANDI. VSS no s/sx of distress. [facility] PT EDon 09-10-2018 PT ED HNO ID: [id number] thor: Sola WhitfieldRn) Marcus, RNService: (none)Author Type: [...] By: Sola Velazquez, RN, BSN [facility] PT ED HNO ID: [id number] thor: LAITH De Rnervice: NursingAuthor Type: Registered NurseType: Patient EducationFiled: 09/10/2018 11:05 AMNote Text:PRE OP LEARNING ASSESSMENTPROCEDURE/SURGERY: GI PROCEDURES: ColonoscopyREADINESS TO LEARNCOGNITIVE ABILITY: Alert and orientedMOTIVATION TO LEARN: InterestedFAMILY SUPPORT: High - Very involved in pt carePATIENT LEARNS BEST BY: Verbal InstructionFACTORS AFFECTING LEARNING: NonePHYSICAL LIMITATIONS AFFECTING LEARNING: NoneElectronically Signed By: Roni Bailey RN [facility] NURSING PROGon 09-09-2018 Protein mass conc HNO ID: [id number] thor: Sherrell Osuna) LAITH Waterservice: NursingAuthor Type: [...] Check:Hieu Waters RNNovember 2017 9:58 AM Normal [facility] HISTORY PHYSICALon HISTORY PHYSICAL HNO ID: [id number] thor: Marty Goncalves Pa-Cice: (none)Author Type: Physician [...] FLANKIrritable Bowel SyndromeCopd (Chronic Obstructive Pulmonary Disease) ([facility])HypoxemiaFormer SmokerObstructive Sleep ApneaWell Adult ExamChronic Obstructive Pulmonary Disease (Hcc)Obesity, Class III, BMI >= 40 (morbid obesity) E66.01Oxygen DependentAcute Bronchitis With Chronic Obstructive Pulmonary Disease (Copd) ([facility])Impaired Fasting GlucoseScreening for Colon CancerSubjectiveCHIEF COMPLAINT: Routine colonoscopyHPI: Lisa is a 63 year old female, her last colonoscopy was aboutten years ago which was normal. She has c/o intermittent constipation andepisodes of vaginal pressure with the constipation. She denies nausea,vomiting, diarrhea, or abdominal pain.Patient is scheduled for colonoscopy by Dr. Galvan on 09/10/2018.PAST MEDICAL HISTORYDiagnosis Date- COPD (chronic obstructive pulmonary disease) (HCC) 02/03/2010- Coronary artery disease No [place], CHF. No heart cath.- Diverticulosis of colon (without mention of hemorrhage)- Essential hypertension, benign- Fibrocystic breast- Former smoker- Internal hemorrhoids without mention of complication- Leiomyoma of uterus, unspecified- Obstructive sleep apnea Mild. Not prescribed CPAP, only 2L nasal O2.PAST SURGICAL HISTORYProcedure Laterality Date- BREAST LUMPECTOMY HX Right 1997- COLONOSCOP W/ OR W/O [facility] SPEC 08/27/08 repeat due 2017- IMPACT TOOTH [...] acidophilus (PROBIOTIC ORAL) Take by mouth. Taking Pzfldkzrwzzhpo-czniimifx-hogc nter (TRELEGY ELLIPTA) 100-62.5-25 mcg dsdvInhale 1 [...] do nocturnal oximetry on 2 L. DME: [facility].Patient not taking: Reported on 09/05/2018 Not TakingCOMPOUNDED PRESCRIPTION Please perform nocturnal oximetry on 2 lpm O2.DX: Severe COPD, chronic hypoxemic respiratory failurePatient not taking: Reported on 09/05/2018 Not TakingNo medication comments found.ALLERGIESNo Known AllergiesREVIEW OF SYSTEMS:PAIN ASSESSMENT:General: No weight loss, malaise or fevers.Neuro: No history of TIA's, stroke, PROPULSION MOTOR AND GENERATOR REPAIRER tumor, impaired sensorium,hemiplegia, paraplegia or quadraplegia. No [...] requiring dialysis. Negative for dysuria, hematuria,urgency, or frequency.RESEARCH TECH: Negative for abnormal vaginal bleeding, abnormal vaginal [...] recent labsMost recent EKGMost recent EchoAll in [facility] nt has the following medical conditionsHTN- RxCOPD- [...] 05, 2018 : 9:32 AM PAGER/CONTACT #: [facility] 08-27-2018 [facility] Patient:Linwood Lucero KMRN: Height:5' 4.5(1.638 m)Weight:256 lb 1.6 oz (116.166 kg)Outpatient Medications as of 09/10/18:Lactobacillus acidophilus (PROBIOTIC ORAL)bgllfomzsmz-gdokllkrz-ml lanter (TRELEGY ELLIPTA) 100-62.5-25 mcg dsdvNYAMYC powdertriamterene-hydrochloro [...] days for the following basenames: K,HCTProgress Notes (COUNTS INCLUDE [facility]EDS AT THE [facility]):Deo Dickerson RN 08/30/2018 9:50 AM Urxaoh11 year old female here for INACTIVATED INFLUENZA VACCINE.[id number] SeasonPatient is identified by name and date of : Yes [] CONTRAINDICATIONS color enhancedsectionAge less than 6 months? NoAllergy to eggs, chicken, chicken feathers, or chicken dander? NoAllergy to thimerosal (a preservative) or formaldehyde, gelatin? NoHistory of severe reaction to any vaccine component or a previous dose ofinfluenza vaccination? NoHistory of Guillain-Chicago Syndrome within 6 weeks after a previous [...] information sheet given? YesSee immunization activity in [facility] for details of immunizations adminsteredtoday.Patient age: [age] year old For The 0363-7920 Flu Season6-35 months old: Fluzone 0.25 ml [...] second dosein one months time.Previous VersionProgress Notes ([facility]):Teodoro Bower 08/27/2018 9:33 AM [id number] unless told otherwise. Dr Galvan, can you please reviewthis patients information . Thank you Teodoro Bower 08/27/2018 2:59 PM Signedleft message for patient to call back so we can schedule her procedure in ahospital setting Teodoro Bower 08/27/2018 3:54 PM [id number] Ky Bower 08/28/2018 1:22 PM [id number] Ky Jenkins [facility] Vital Signs Date Time Vital Sign Value Performing Clinician Facility 04-23-2025 14:59-0400 Body mass index (BMI) [Ratio] 43.98 kg/m2 Terrie Robledo APRN.CNP Work Phone: [facility] 04-23-2025 14:59-0400 Body weight 116.21 kg Terrie Robledo APRN.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: [facility] 04-23-2025 14:59-0400 Diastolic blood pressure 62 mm[Hg] Terrie Robledo APRN.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: [facility] 04-23-2025 14:59-0400 Heart rate 129 /min Terrie Robledo APRN.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: [facility] 04-23-2025 14:59-0400 Respiratory rate 20 /min Terrie Robledo APRN.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: [facility] 04-23-2025 14:59-0400 SaO2% (BldA) [Mass fraction] 92 % Terrie Robledo APRN.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: [facility] 04-23-2025 14:59-0400 Systolic blood pressure 122 mm[Hg] Terrie Robledo APRN.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: [facility] 04-20-2025 09:48-0400 Body mass index (BMI) [Ratio] 44.27 kg/m2 Damon Eugene APRN.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: [facility] 04-20-2025 09:48-0400 Body temperature 98.4 [degF] Damon Eugene APRN.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: [facility] 04-20-2025 09:48-0400 Body weight 117 kg Damon Eugene APRN.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: [facility] 04-20-2025 09:48-0400 Diastolic blood pressure 80 mm[Hg] Damon Eugene APRN.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: [facility] 04-20-2025 09:48-0400 Heart rate 94 /min Damon Eugene APRN.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: [facility] 04-20-2025 09:48-0400 Respiratory rate 18 /min Damon Eugene APRN.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: [facility] 04-20-2025 09:48-0400 SaO2% (BldA) [Mass fraction] 91 % Damon Eugene APRN.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: [facility] 04-20-2025 09:48-0400 Systolic blood pressure 132 mm[Hg] Damon Eugene APRN.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: [facility] 03-31-2025 12:52-0400 Body mass index (BMI) [Ratio] 45.08 kg/m2 Janette Damon APRN.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: [facility] 03-31-2025 12:52-0400 Body weight 119.11 kg Janette Podlogar SHERIFF OFFICER.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: [facility] 03-31-2025 12:52-0400 Diastolic blood pressure 82 mm[Hg] Janette Podlogar SHERIFF OFFICER.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: [facility] 03-31-2025 12:52-0400 Heart rate 91 /min Janette Podlogar SHERIFF OFFICER.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: [facility] 03-31-2025 12:52-0400 Respiratory rate 18 /min Janette Podlogar SHERIFF OFFICER.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: [facility] 03-31-2025 12:52-0400 SaO2% (BldA) [Mass fraction] 92 % Janette Podlogar SHERIFF OFFICER.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: [facility] Comment on above: 3LPM 03-31-2025 12:52-0400 Systolic blood pressure 124 mm[Hg] Janette Podlogar SHERIFF OFFICER.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: [facility] 03-30-2025 11:28-0400 Body height 162.[address] Phuc Martines DO Work Phone: [facility] 03-30-2025 11:28-0400 Body mass index (BMI) [Ratio] 45.1 kg/m2 Dr. Phuc Martines DO Work Phone: [facility] 03-30-2025 11:28-0400 Body weight 119.[address] Phuc Martines DO Work Phone: [facility] 03-30-2025 11:28-0400 Diastolic blood pressure 80 mm[Hg] Dr. Phuc Martines DO Work Phone: [facility] 03-30-2025 11:28-0400 Heart rate 69 /min Dr. Phuc Martines DO Work Phone: [facility] 03-30-2025 11:28-0400 Inhaled oxygen flow rate 2 L/min Dr. Phuc Martines DO Work Phone: [facility] 03-30-2025 11:28-0400 Respiratory rate 18 /min Dr. Phuc Martines DO Work Phone: [facility] 03-30-2025 11:28-0400 SaO2% (BldA) [Mass fraction] 86 % Dr. Phuc Martines DO Work Phone: [facility] 03-30-2025 11:28-0400 Systolic blood pressure 122 mm[Hg] Dr. Phuc Martines DO Work Phone: [facility] 03-01-2025 12:31-0400 Body mass index (BMI) [Ratio] 45.01 kg/m2 Janette Podlogar SHERIFF OFFICER.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: [facility] 03-01-2025 12:31-0400 Body weight 118.93 kg Janette Podlogar SHERIFF OFFICER.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: [facility] 03-01-2025 12:31-0400 Diastolic blood pressure 70 mm[Hg] Janette Podlogar SHERIFF OFFICER.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: [facility] 03-01-2025 12:31-0400 Heart rate 76 /min Janette Podlogar SHERIFF OFFICER.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: [facility] 03-01-2025 12:31-0400 Respiratory rate 18 /min Janette Podlogar SHERIFF OFFICER.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: [facility] 03-01-2025 12:31-0400 SaO2% (BldA) [Mass fraction] 90 % Janette Podlogar SHERIFF OFFICER.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: [facility] Comment on above: 3LPM 03-01-2025 12:31-0400 Systolic blood pressure 116 mm[Hg] Janette Podlogar SHERIFF OFFICER.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: [facility] 02-23-2025 13:26-0400 Body temperature 98.4 [degF] Dr. Phuc Martines DO Work Phone: [facility] 02-23-2025 13:26-0400 Diastolic blood pressure 83 mm[Hg] Dr. Phuc Martines DO Work Phone: [facility] 02-23-2025 13:26-0400 Heart rate 104 /min Dr. Phuc Martines DO Work Phone: [facility] 02-23-2025 13:26-0400 Inhaled oxygen flow rate 3.5 L/min Dr. Phuc Martines DO Work Phone: [facility] 02-23-2025 13:26-0400 Respiratory rate 18 /min Dr. Phuc Martines DO Work Phone: [phone] [place] [address] 02-23-2025 13:26-0400 SaO2% (BldA) [Mass fraction] 97 % Dr. Phuc Martines DO Work Phone: 5(874)614-7650[address] [place] [address] 02-23-2025 13:26-0400 Systolic blood pressure 110 mm[Hg] Dr. Phuc Martines DO Work Phone: 0(854)[phone] [place] [address] 02-23-2025 03:57-0400 Body mass index (BMI) [Ratio] 44.6 kg/m2 Dr. Phuc Martines DO Work Phone: [phone])[phone] [place] [address] 02-23-2025 03:57-0400 Body weight 117.[address] Phuc Martines DO Work Phone: 0([phone] [place] [address] 02-22-2025 10:02-0400 Body height 162.[address] Phuc Martines DO Work Phone: [facility] 01-25-2025 11:08-0400 Body height 162.6 cm Maricruz Camp SHERIFF OFFICER.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: [facility] 01-25-2025 11:08-0400 Body mass index (BMI) [Ratio] 45.56 kg/m2 Maricruz Camp SHERIFF OFFICER.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: [facility] 01-25-2025 11:08-0400 Body weight 120.39 kg Maricruz Camp SHERIFF OFFICER.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: [facility] 01-25-2025 11:08-0400 Diastolic blood pressure 76 mm[Hg] Maricruz Camp SHERIFF OFFICER.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: [facility] 01-25-2025 11:08-0400 Heart rate 88 /min Maricruz Camp SHERIFF OFFICER.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: [facility] 01-25-2025 11:08-0400 SaO2% (BldA) [Mass fraction] 92 % Maricruz Camp SHERIFF OFFICER.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: [facility] 01-25-2025 11:08-0400 Systolic blood pressure 131 mm[Hg] Maricruz Camp SHERIFF OFFICER.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: [facility] 01-20-2025 14:36-0400 Body mass index (BMI) [Ratio] 45.32 kg/m2 Phuc Martines DO Work Phone: [facility] 01-20-2025 14:36-0400 Body temperature 97 [degF] Phuc Martines DO Work Phone: [facility] 01-20-2025 14:36-0400 Body weight 119.75 kg Phuc Martines DO Work Phone: [facility] 01-20-2025 14:36-0400 Diastolic blood pressure 70 mm[Hg] Phuc Martines DO Work Phone: [facility] 01-20-2025 14:36-0400 Heart rate 72 /min Phuc Martines DO Work Phone: [facility] 01-20-2025 14:36-0400 Respiratory rate 20 /min Phuc Martines DO Work Phone: [facility] 01-20-2025 14:36-0400 Systolic blood pressure 138 mm[Hg] Phuc Martines DO Work Phone: [facility] 12-25-2024 11:22-0500 Body mass index (BMI) [Ratio] 45.08 kg/m2 Lsia Goodman SHERIFF OFFICER.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: [facility] 12-25-2024 11:22-0500 Body weight 119.11 kg Lisa Click SHERIFF OFFICER.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: [facility] 12-25-2024 11:22-0500 Diastolic blood pressure 64 mm[Hg] Lisa Click SHERIFF OFFICER.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: [facility] 12-25-2024 11:22-0500 Heart rate 92 /min Lisa Click SHERIFF OFFICER.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: [facility] 12-25-2024 11:22-0500 Respiratory rate 20 /min Lisa Click SHERIFF OFFICER.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: [facility] 12-25-2024 11:22-0500 SaO2% (BldA) [Mass fraction] 91 % Lisa Click SHERIFF OFFICER.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: [facility] Comment on above: 2 L NC 12-25-2024 11:22-0500 Systolic blood pressure 134 mm[Hg] Lisa Click SHERIFF OFFICER.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: [facility] 10-19-2024 10:15-0500 Body height 162.6 cm Maricruz [place] SHERIFF OFFICER.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: [facility] 10-19-2024 10:15-0500 Body mass index (BMI) [Ratio] 44.56 kg/m2 Maricruz [place] SHERIFF OFFICER.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: [facility] 10-19-2024 10:15-0500 Body weight 117.75 kg Maricruz [place] SHERIFF OFFICER.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: [facility] 10-19-2024 10:15-0500 Diastolic blood pressure 70 mm[Hg] Maricruz [place] SHERIFF OFFICER.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: [facility] 10-19-2024 10:15-0500 Heart rate 101 /min Maricruz [place] SHERIFF OFFICER.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: [facility] 10-19-2024 10:15-0500 SaO2% (BldA) [Mass fraction] 90 % Maricruz Camp APRN.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: [facility] Comment on above: 3 L 10-19-2024 10:15-0500 Systolic blood pressure 130 mm[Hg] Maricruz Camp APRN.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: [facility] 06-26-2024 11:29-0400 Body mass index (BMI) [Ratio] 43.6 kg/m2 Diana Gonzalez MD Work Phone: [facility] 06-26-2024 11:29-0400 Body weight 115.21 kg Diana Gonzalez MD Work Phone: [facility] 06-26-2024 11:29-0400 Diastolic blood pressure 78 mm[Hg] Diana Gonzalez MD Work Phone: [facility] 06-26-2024 11:29-0400 Heart rate 80 /min Diana Gonzalez MD Work Phone: [facility] 06-26-2024 11:29-0400 Respiratory rate 15 /min Diana Gonzalez MD Work Phone: [facility] 06-26-2024 11:29-0400 SaO2% (BldA) [Mass fraction] 91 % Diana Gonzalez MD Work Phone: [facility] 06-26-2024 11:29-0400 Systolic blood pressure 136 mm[Hg] Diana Gonzalez MD Work Phone: [facility] 04-26-2024 10:59-0400 Body mass index (BMI) [Ratio] 44.65 kg/m2 Damon Eugene APRN.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: [facility] 04-26-2024 10:59-0400 Body temperature 98.6 [degF] Damon Eugene APRN.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: [facility] 04-26-2024 10:59-0400 Body weight 118 kg Damon Eugene APRN.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: [facility] 04-26-2024 10:59-0400 Diastolic blood pressure 68 mm[Hg] Damon Jas POLLACK.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: [facility] 04-26-2024 10:59-0400 Heart rate 68 /min Damonsidra Eugene APRN.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: [facility] 04-26-2024 10:59-0400 Respiratory rate 20 /min Damon Eugene APRN.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: [facility] 04-26-2024 10:59-0400 SaO2% (BldA) [Mass fraction] 98 % Damon Eugene APRN.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: [facility] 04-26-2024 10:59-0400 Systolic blood pressure 144 mm[Hg] Damon Jas POLLACK.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: [facility] 03-13-2024 12:59-0400 Body mass index (BMI) [Ratio] 44.29 kg/m2 Phuc Martines DO Work Phone: [facility] 03-13-2024 12:59-0400 Body temperature 97.59 [degF] Phuc Martines DO Work Phone: [facility] 03-13-2024 12:59-0400 Body weight 117.03 kg Phuc Martines DO Work Phone: [facility] 03-13-2024 12:59-0400 Diastolic blood pressure 70 mm[Hg] Phuc Martines DO Work Phone: [facility] 03-13-2024 12:59-0400 Heart rate 102 /min Phuc Martines DO Work Phone: [facility] 03-13-2024 12:59-0400 Respiratory rate 28 /min Phuc Martines DO Work Phone: [facility] 03-13-2024 12:59-0400 SaO2% (BldA) [Mass fraction] 91 % Phuc Martines DO Work Phone: [facility] 03-13-2024 12:59-0400 Systolic blood pressure 158 mm[Hg] Phuc Martines DO Work Phone: [facility] 01-29-2024 13:30-0400 Body temperature 97.9 [degF] Srikanth Sean SHERIFF OFFICER.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: [facility] 01-29-2024 13:30-0400 Body weight 118.4 kg Srikanth Estrada SHERIFF OFFICER.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: [facility] 01-29-2024 13:30-0400 Diastolic blood pressure 68 mm[Hg] Srikanth Sean SHERIFF OFFICER.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: [facility] 01-29-2024 13:30-0400 Heart rate 94 /min Srikanth Estrada SHERIFF OFFICER.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: [facility] 01-29-2024 13:30-0400 Respiratory rate 18 /min Srikanth Estrada SHERIFF OFFICER.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: [facility] 01-29-2024 13:30-0400 SaO2% (BldA) [Mass fraction] 93 % Srikanth Estrada SHERIFF OFFICER.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: [facility] 01-29-2024 13:30-0400 Systolic blood pressure 112 mm[Hg] Srikanth Estrada SHERIFF OFFICER.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: [facility] 08-14-2023 10:19-0400 Body temperature 97 [degF] Phuc Martines DO Work Phone: [facility] 08-14-2023 10:19-0400 Body weight 120.2 kg Phuc Martines DO Work Phone: [facility] 08-14-2023 10:19-0400 Diastolic blood pressure 70 mm[Hg] Phuc Martines DO Work Phone: [facility] 08-14-2023 10:19-0400 Heart rate 88 /min Phuc Martines DO Work Phone: [facility] 08-14-2023 10:19-0400 Respiratory rate 20 /min Phuc Martines DO Work Phone: [facility] 08-14-2023 10:19-0400 Systolic blood pressure 120 mm[Hg] Phuc Martines DO Work Phone: [facility] 06-13-2023 12:58-0400 Body weight 120.66 kg Pulm Wstr Work Phone: [facility] 06-13-2023 12:58-0400 Heart rate 102 /min Pulm Wstr Work Phone: [facility] 06-13-2023 12:58-0400 Respiratory rate 16 /min Pulm Wstr Work Phone: [facility] 06-13-2023 12:58-0400 SaO2% (BldA) [Mass fraction] 94 % Pulm Wstr Work Phone: [facility] 06-13-2023 12:53-0400 Diastolic blood pressure 86 mm[Hg] Hodan Mara PA-C Work Phone: [facility] 06-13-2023 12:53-0400 SaO2% (BldA) [Mass fraction] 80 % Hodan Mara PA-C Work Phone: [facility] 06-13-2023 12:53-0400 Systolic blood pressure 144 mm[Hg] Hodan Mara PA-C Work Phone: [facility] 09-28-2022 12:12-0500 Body temperature 99 [degF] Pratibha Fernando SHERIFF OFFICER.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: [facility] 09-28-2022 12:12-0500 Body weight 116.3 kg Pratibha Fernando SHERIFF OFFICER.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: [facility] 09-28-2022 12:12-0500 Diastolic blood pressure 94 mm[Hg] Pratibha Fernando SHERIFF OFFICER.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: [facility] 09-28-2022 12:12-0500 Heart rate 99 /min Pratibha Fernando SHERIFF OFFICER.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: [facility] 09-28-2022 12:12-0500 Respiratory rate 20 /min Pratibha King SHERIFF OFFICER.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: [facility] 09-28-2022 12:12-0500 SaO2% (BldA) [Mass fraction] 94 % Pratibha King SHERIFF OFFICER.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: [facility] 09-28-2022 12:12-0500 Systolic blood pressure 142 mm[Hg] Pratibha King SHERIFF OFFICER.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: [facility] 08-01-2022 10:17-0400 Body temperature 98.4 [degF] Phuc Martines DO Work Phone: [facility] 08-01-2022 10:17-0400 Body weight 117.48 kg Phuc Martines DO Work Phone: [facility] 08-01-2022 10:17-0400 Diastolic blood pressure 60 mm[Hg] Phuc Martines DO Work Phone: [facility] 08-01-2022 10:17-0400 Heart rate 88 /min Phuc Martines DO Work Phone: [facility] 08-01-2022 10:17-0400 Respiratory rate 24 /min Phuc Martines DO Work Phone: [facility] 08-01-2022 10:17-0400 SaO2% (BldA) [Mass fraction] 88 % Phuc Martines DO Work Phone: [facility] 08-01-2022 10:17-0400 Systolic blood pressure 136 mm[Hg] Phuc Martines DO Work Phone: [facility] 03-16-2022 09:33-0400 Body height 164.5 cm Respiratory Wstr Work Phone: [facility] 03-16-2022 09:33-0400 Body weight 114.76 kg Respiratory Wstr Work Phone: [facility] 03-16-2022 09:33-0400 Heart rate 93 /min Respiratory Wstr Work Phone: [facility] 03-16-2022 09:33-0400 Respiratory rate 12 /min Respiratory Wstr Work Phone: [facility] 03-16-2022 09:33-0400 SaO2% (BldA) [Mass fraction] 94 % Respiratory Wstr Work Phone: [facility] 03-16-2022 09:31-0400 Body weight 114.76 kg Hodan Mara PA-C Work Phone: [facility] 03-16-2022 09:31-0400 Diastolic blood pressure 86 mm[Hg] Hodan Mara PA-C Work Phone: [facility] 03-16-2022 09:31-0400 Heart rate 93 /min Hodan Mara PA-C Work Phone: [facility] 03-16-2022 09:31-0400 Respiratory rate 12 /min Hodan Mara PA-C Work Phone: [facility] 03-16-2022 09:31-0400 SaO2% (BldA) [Mass fraction] 96 % Hodan Mara PA-C Work Phone: [facility] 03-16-2022 09:31-0400 Systolic blood pressure 138 mm[Hg] Hodan Mara PA-C Work Phone: [facility] 02-09-2022 12:49-0400 Body weight 114.31 kg Hodan Mara PA-C Work Phone: [facility] 02-09-2022 12:49-0400 Diastolic blood pressure 88 mm[Hg] Hodan Mara PA-C Work Phone: [facility] 02-09-2022 12:49-0400 Heart rate 102 /min Hodan Mara PA-C Work Phone: [facility] 02-09-2022 12:49-0400 Respiratory rate 20 /min Hodan Mara PA-C Work Phone: [facility] 02-09-2022 12:49-0400 SaO2% (BldA) [Mass fraction] 86 % Hodan Christine PA-C Work Phone: [facility] 02-09-2022 12:49-0400 Systolic blood pressure 140 mm[Hg] Hodan Christine PA-C Work Phone: [facility] 01-30-2022 08:59-0400 Body temperature 97.59 [degF] Phuc Martines DO Work Phone: [facility] 01-30-2022 08:59-0400 Body weight 115.21 kg Phuc Martines DO Work Phone: [facility] 01-30-2022 08:59-0400 Diastolic blood pressure 74 mm[Hg] Phuc Martines DO Work Phone: [facility] 01-30-2022 08:59-0400 Heart rate 104 /min Phuc Martines DO Work Phone: [facility] 01-30-2022 08:59-0400 Respiratory rate 20 /min Phuc Martines DO Work Phone: [facility] 01-30-2022 08:59-0400 SaO2% (BldA) [Mass fraction] 88 % Phuc Martines DO Work Phone: [facility] 01-30-2022 08:59-0400 Systolic blood pressure 150 mm[Hg] Phuc Martines DO Work Phone: [facility] Encounters Encounter Date Encounter Type Care Provider [...] 04-22-2025 Follow-up encounter Anais LYNN Work Phone: [facility] Comment on above: Results Start: 04-20-2025 End: 04-20-2025 Patient encounter procedure Damon Eugene APRN.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: [facility] Comment on above: Acute cystitis with hematuria; Candidal intertrigo; Confusion Start: 04-20-2025 End: 04-20-2025 ambulatory DAMON EUGENE Facility:[facility] Start: 04-06-2025 End: 04-06-2025 ambulatory Lisa Goodman SHERIFF OFFICER.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: Pulmonary Medicine Comment on above: Sleep Study Start: 03-31-2025 End: 03-31-2025 Patient encounter procedure Janette Damon APRN.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: [facility] Comment on above: Essential (primary) hypertension; Atrial flutter, unspecified type (HCC) Start: 03-31-2025 End: 03-31-2025 ambulatory JANETTE DAMON Facility:[facility] Start: 03-30-2025 End: 03-30-2025 ambulatory Bryan Elena Facility:[facility] Start: 03-30-2025 End: 03-30-[address] Bryan Elena MD -[facility] Work Phone: Start: 03-10-2025 End: 03-10-2025 Office outpatient visit 15 minutes Lisa Goodman SHERIFF OFFICER.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: Pulmonary Medicine Comment on above: Daytime sleepiness ( Primary Dx); Stage 3 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); Chronic respiratory failure with hypoxia (HCC) Start: 03-10-2025 End: 03-10-2025 ambulatory PHUC MARTINES Facility:[facility] Start: 03-01-2025 End: 03-01-2025 Patient encounter procedure Janette Damon APRN.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: [facility] [place] Comment on above: Hospital discharge f ollow-up (Primary Dx); Atrial flutter, unspecified type (HCC); Congestive heart failure, unspecified HF chronicity, unspecified heart failure type (HCC); Stage 3 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); Oxygen dependent; Essential hypertension Start: 03-01-2025 End: 03-01-2025 ambulatory PHUC MARTINES Facility:[facility] Start: 02-23-2025 Non-patient / Non-visit Dr. Yee Jones MD -[facility] Work Phone: Start: 02-22-2025 Non-patient / Non-visit Dr. Yee Jones MD -[facility] Work Phone: Start: 02-21-2025 Non-patient / Non-visit Dr. Claudia Valerio DO [facility] Work Phone: Start: 02-20-2025 ambulatory Mercy Purvis Facility:[facility] Start: 02-20-2025 Non-patient / Non-visit Dr. Mercy smith MD -[facility] Start: 02-20-2025 Non-patient / Non-visit Dr. Claudia Valerio DO [facility] Work Phone: Start: 02-19-2025 ambulatory Kym Norton Facility:[facility] Start: 02-19-2025 End: 02-23-2025 Evaluation and management of inpatient Dr. Yee Jones MD -[facility] Work Phone: Start: 01-26-2025 End: 01-26-2025 Follow-up encounter Maricruz Camp APRN.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: Pulmonary Medicine Start: 01-25-2025 End: 01-25-2025 Patient encounter procedure Maricruz Camp APRN.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: Pulmonary Medicine Comment on above: Multiple lung nodule s (Primary Dx); Former tobacco use Start: 01-25-2025 End: 01-25-2025 ambulatory MARICRUZ CAMP Facility:[facility] Start: 01-25-2025 End: 01-25-2025 Subsequent hospital visit by physician [facility] ([facility]) Work Phone: Cat Scan Start: 01-21-2025 End: 03-23-2025 Follow-up encounter Pratibha King APRN.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: [facility] Start: 01-20-2025 End: 01-20-2025 ambulatory PHUC L MARTINES Facility:[facility] Start: 01-20-2025 End: 01-20-2025 Patient encounter procedure Phuc Osmany TaylorMartines DO Work Phone: [facility] Comment on above: Medicare annual well ness visit, subsequent (Primary Dx); Hair thinning; Fatigue, unspecified type; Impaired fasting glucose; Dyslipidemia; Vitamin D deficiency; Stage 3 severe COPD by GOLD classification ([facility]); Essential hypertension; Oxygen dependent; Morbid obesity with BMI of 45.0-49.9, adult ([facility]) Start: 01-13-2025 End: 01-13-2025 ambulatory PHUC L MARTINES Facility:[facility] Start: 12-25-2024 End: 12-25-2024 ambulatory PHUC L MARTINES Facility:[facility] Start: 12-25-2024 End: 12-25-2024 Office outpatient visit 15 minutes Lisa Goodman APRN.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: Pulmonary Medicine Comment on above: Stage 3 severe COPD by GOLD classification ([facility]) (Primary Dx); Chronic respiratory failure with hypoxia (HCC); Former cigarette smoker Start: 12-03-2024 End: 12-03-2024 ambulatory PHUC L MARTINES Facility:[facility] Start: 12-03-2024 End: 12-03-2024 Subsequent hospital visit by physician Screen Mammo [facility] Mamm[facility] Comment on above: Encounter for screen ing mammogram for breast cancer [Z12.31] Start: 11-27-2024 End: 11-27-2024 Refill Phuc Taylorrison DO Work Phone: [facility] Comment on above: Refill Request; Lab Orders Start: 11-11-2024 End: 11-11-2024 ambulatory Julianne Donald MA [facility] Start: 11-11-2024 End: 11-11-2024 Patient encounter procedure Julianne Donald MA [facility] Comment on above: Population Health Na vigation Outreach ([facility]) Start: 11-05-2024 End: 11-05-2024 ambulatory Patricia Kevin ROLAND Pulmonary Medicine Start: 10-21-2024 End: 10-26-2024 ambulatory Phuc Fraustoon DO Work Phone: Internal Medicine [facility] Start: 10-20-2024 End: 10-20-2024 ambulatory Maricruz Camp APRN.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: Pulmonary Medicine Start: 10-19-2024 End: 10-19-2024 E-mail encounter from caregiver Hodan Christine PA-C Work Phone: Pulmonary Medicine Start: 10-19-2024 End: 10-19-2024 Patient encounter procedure Maricruz Camp APRN.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: Pulmonary Medicine Comment on above: Multiple lung nodule s (Primary Dx); Encounter for screening for lung cancer; Former tobacco use Start: 10-19-2024 End: 10-19-2024 ambulatory Hodan Christine PA-C Work Phone: Pulmonary Medicine Comment on above: check in Start: 10-19-2024 End: 10-19-2024 Subsequent hospital visit by physician [facility] ([facility]) Work Phone: Cat Scan Comment on above: Former cigarette smo ker [Z87.891] Start: 08-13-2024 End: 08-13-2024 ambulatory Phuc Martines DO Work Phone: [facility] Comment on above: Pap and Mammo Start: 07-17-2024 End: 07-17-2024 Refill Vicky Duong APRN.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: [facility] Comment on above: Refill Request Start: 06-26-2024 End: 06-26-2024 ambulatory DIANA GONZALEZ Facility:[facility] Start: 06-26-2024 End: 06-26-2024 Patient encounter procedure Diana Gonzalez MD Work Phone: Pulmonary Medicine Comment on above: Stage 3 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) (Primary Dx); Chronic hypoxemic respiratory failure (HCC); Former cigarette smoker; Morbid obesity (HCC) Start: 05-06-2024 End: 05-06-2024 Emergency department patient visit Dane Jerardo Facility:[facility] Start: 04-26-2024 End: 04-26-2024 ambulatory PHUC MARTINES Facility:[facility] Start: 04-26-2024 End: 04-26-2024 Patient encounter procedure Damon Eugene APRN.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: [facility] Comment on above: Skin infection (Prim luna Dx) Start: 03-30-2024 Telephone encounter Phuc robins DO Work Phone: [facility] Comment on above: Patient Update Start: 03-13-2024 End: 03-13-2024 Patient encounter procedure Phuc Martines DO Work Phone: [facility] Comment on above: Acute bronchitis wit h chronic obstructive pulmonary disease (COPD) (HCC) (HCC) (Primary Dx); Chronic obstructive pulmonary disease, unspecified COPD type (HCC); Acute otitis media, left; Dyslipidemia; Impaired fasting glucose; Vitamin D deficiency; Essential hypertension; Stage 3 severe COPD by GOLD classification ([facility]); Fatigue, unspecified type; Oxygen dependent; Morbid obesity with BMI of 45.0-49.9, adult (HCC); Thoracic aortic ectasia (HCC) Start: 02-12-2024 Refill Phuc caban DO Work Phone: [facility] Comment on above: Refill Request Start: 01-29-2024 End: 01-29-2024 Patient encounter procedure Srikanth Estrada APRN.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: [facility] Comment on above: Skin infection (Prim luna Dx) Start: 12-26-2023 End: 12-26-2023 Patient encounter procedure Diana Gonzalez MD Work Phone: Pulmonary Medicine Comment on above: Stage 3 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) (Primary Dx); Chronic respiratory failure with hypoxia ([facility]); Morbid obesity with BMI of 45.0-49.9, adult ([facility]); Lung nodules Start: 12-24-2023 Telephone encounter Phuc robins DO Work Phone: [facility] Comment on above: Orders Start: 10-08-2023 End: 10-08-2023 Subsequent hospital visit by physician [facility] ([facility]) Work Phone: Cat Scan Comment on above: Former cigarette smo ker [Z87.891] Start: 09-17-2023 End: 09-17-2023 Subsequent hospital visit by physician Screen Mammo [facility] Mammogram Comment on above: Encounter for screen ing mammogram for malignant neoplasm of breast [Z12.31] Start: 08-16-2023 Telephone encounter Phuc Osmany Andrews kishasrini DO Work Phone: [facility] Comment on above: Results Start: 08-14-2023 End: 08-14-2023 Patient encounter procedure Phuc Martines DO Work Phone: [facility] Comment on above: Essential hypertensi on (Primary Dx); Need for influenza vaccination; Encounter for screening mammogram for malignant neoplasm of breast; Need for RSV immunization; Vitamin D deficiency; Impaired fasting glucose; Stage 3 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); Oxygen dependent; Fatigue, unspecified type; Rash of foot; Dyslipidemia Start: 07-28-2023 Refill Phuc caban DO Work Phone: [facility] Comment on above: Refill Request Start: 06-13-2023 End: 06-13-2023 ambulatory Pulm Lab [facility] Work Phone: [facility]UL[facility] LAB [facility] Comment on above: Spirometry Start: 06-13-2023 End: 06-13-2023 Patient encounter procedure Pulm Lab [facility] Work Phone: [facility] Comment on above: COPD, severe (HCC) [...] Start: 10-10-2022 End: 10-10-2022 ambulatory Pulm Lab [facility] Work Phone: PULM [facility] Comment on above: Arrived Medicare corresponde nce Start: 10-10-2022 End: 10-10-2022 Patient encounter procedure Pulm Lab [facility] Work Phone: [facility] [place] Start: 09-28-2022 End: 09-28-2022 Subsequent hospital visit by physician Xr [facility] Work Phone: Radiology Comment on above: COVID [U07.1] Start: 09-28-2022 End: 09-28-2022 Patient encounter procedure Pratibha King SHERIFF OFFICER.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: [facility] Comment on above: COVID (Primary Dx); Chronic obstructive pulmonary disease, unspecified COPD type (HCC); Bacterial sinusitis; Oxygen dependent Start: 09-12-2022 Documentation procedure Mammog angel Coordinator [facility] Start: 09-12-2022 Letter encounter Mammography Coordinator [facility] Department Start: 09-12-2022 Telephone encounter Phuc robins DO Work Phone: [facility] Comment on above: Forms Start: 09-11-2022 End: 09-11-2022 Subsequent hospital visit by physician Screen Mammo [facility] Mammogram Comment on above: Encounter for screen ing mammogram for breast cancer [Z12.31] Start: 09-06-2022 Telephone encounter Pratibha Ma APRN.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: [facility] Comment on above: Results; Scheduling Start: 09-05-2022 ambulatory Phuc caban DO Work Phone: Internal Medicine [facility] [place] Start: 09-03-2022 End: 09-03-2022 Subsequent hospital visit by physician Us [facility] Work Phone: Radiology Comment on above: Cyst of spleen [D73. 4] Start: 08-30-2022 Telephone encounter Pratibha Ma APRN.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: Family Medicine [place] Comment on above: Results Start: 08-29-2022 End: 08-29-2022 Subsequent hospital visit by physician [facility] ([facility]) Work Phone: Cat Scan Comment on above: Chronic obstructive pulmonary disease, unspecified COPD type (HCC) [J44.9] Start: 08-03-2022 Telephone encounter Phuc robins DO Work Phone: Family Medicine [place] Comment on above: Forms Start: 08-01-2022 End: 08-01-2022 Patient encounter procedure Phuc Martines DO Work Phone: Family Medicine [...] m caregiver Hodan VIVEROSC Work Phone: [place] [facility] [employer] Start: 03-16-2022 End: 03-16-2022 ambulatory Respiratory Therapist [facility] Work Phone: Pulmonary Medicine Comment on above: Spirometry Start: 03-16-2022 End: 03-16-2022 Patient encounter procedure Respiratory Therapist [facility] Work Phone: [facility] Comment on above: Chronic obstructive pulmonary disease, unspecified COPD type (HCC) (Primary Dx); Chronic hypoxemic respiratory failure (HCC); Dyspnea and respiratory abnormalities; Former smoker Start: 03-07-2022 Refill Phuc Taylordelaney mee DO Work Phone: [facility] [place] Comment on above: Refill Request Start: 02-09-2022 End: 02-09-2022 Patient encounter procedure Hodan Christine PA-C Work Phone: Pulmonary Medicine Comment on above: Chronic obstructive pulmonary disease, unspecified COPD type (HCC) (Primary Dx); Dyspnea and respiratory abnormalities Start: 01-30-2022 End: 01-30-2022 Patient encounter procedure Phuc Martines DO Work Phone: [facility] [place] Comment on above: Chronic obstructive pulmonary disease, unspecified COPD type (HCC) (Primary Dx); Essential hypertension; Impaired fasting glucose; Dyslipidemia; Vitamin D deficiency; Lightheaded Start: 01-10-2021 End: 01-10-2021 Subsequent hospital visit by physician [facility] [place] Work Phone: Radiology Comment on above: Acute gout involving toe of right foot, unspecified cause [M10.9] Start: 05-19-2019 End: 10-13-2019 Physical examination Phuc Martines DO Work Phone: [facility] Start: 09-10-2018 End: 09-10-2018 Patient encounter procedure [facility] Start: 09-05-2018 Encounter for other preprocedural examination [facility] Start: 09-05-2018 End: 09-05-2018 Patient encounter procedure [facility] Start: 11-09-2016 End: 10-13-2019 Patient encounter status Phuc Martines DO Work Phone: [facility] Procedures Date Procedure Procedure Detail Performing Clinician [...] 01-25-2025 Ct [facility] contra [facility]ERIFF OFFICER.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: Start: 01-13-2025 Lipid 1996 panel - S joaquin or Plasma Phuc Martines DO Work Phone: Start: 12-03-2024 Screening digital br [place] [facility] bi Bulk Order Provider Start: 10-19-2024 CT LUNG SCREEN WO IVCON Maricruz [place] SHERIFF OFFICER.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: Start: 03-13-2024 Adult depression scr [...] Us abdominal real ti me w/image limited [facility] SHERIFF OFFICER.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: Start: 10-10-2022 Noninvasive ear/puls e oximetry multiple deter Phuc L Martines DO Work Phone: Start: 09-28-2022 Radiologic exam ches t 2 views [facility] SHERIFF OFFICER.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: Start: 09-11-2022 End: 09-11-2022 Mammography Bulk Order Provider Start: 09-03-2022 Us abdominal real ti me w/image limited [facility] SHERIFF OFFICER.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: Start: 08-29-2022 Ct thorax w/o [...] ry martin w/wo mxml vol vntj Hodan Chrsitine PA-C Work Phone: Start: 04-26-2021 Adult depression scr eening assessment Phuc Taylorrison DO Work Phone: Start: 01-10-2021 Radex foot complete minimum 3 views Tierra Villatoro PA-C Work Phone: Start: 09-02-2020 Mammography Phuc quiñonez DO Work Phone: Start: 09-10-2018 Colonoscopy Phuc quiñonez DO Work Phone: Plan of Treatment Date Care Activity Detail Author Start: 01-13-2030 Lipid panel Lipid Screening [facility] Start: 03-11-2029 Lipid panel Lipid Screening [facility] Start: 09-10-2028 Colonoscopy COLONOSCOPY [facility] Start: 09-10-2028 COLORECTAL CANCER SCREENING COLORECTAL CANCER SCREENING [facility] Start: 09-10-2028 Screening for malign ant neoplasm of colon [facility] Start: 08-14-2028 Lipid 1996 panel - S joaquin or Plasma Lipid Screening [facility] Start: 08-14-2028 Lipid panel Lipid Screening [facility] Start: 01-14-2028 Diabetes Screening Diabetes Screenin g [facility] Start: 07-30-2027 Lipid 1996 panel - S joaquin or Plasma Lipid Screening [facility] Start: 07-30-2027 LIPID SCREEN LIPID SCREEN [facility] Start: 03-11-2027 Diabetes Screening Diabetes Screenin [facility] Start: 01-26-2027 LIPID SCREEN LIPID SCREEN [facility] Start: 08-14-2026 Diabetes Screening Diabetes Screenin g [facility] Start: 04-23-2026 Annual PCP Team Carton Liner tiffanie Disease Visit Annual PCP Team Chronic Disease Visit [facility] Start: 03-31-2026 Annual PCP Team Carton Liner tiffanie Disease Visit Annual PCP Team Chronic Disease Visit [facility] Start: 03-01-2026 Annual PCP Team Carton Liner tiffanie Disease Visit Annual PCP Team Chronic Disease Visit [facility] Start: 03-01-2026 BP Controlled (<130/80) BP Controlle d (<130/80) [facility] Start: 01-20-2026 Annual PCP Team Carton Liner tiffanie Disease Visit Annual PCP Team Chronic Disease Visit [facility] Start: 01-20-2026 Medicare Annual Well ness Visit Medicare Annual Wellness Visit [facility] Start: 12-03-2025 Screening for malign ant neoplasm of breast Mammogram Screening [facility] Start: 11-09-2025 Urine microalbumin profile [facility] Start: 09-27-2025 End: 09-27-2025 Patient encounter procedure 09/27/2025 8:20 AM EST Office Visit Cardiology [address] [place] [address] Toribio Robertson MD [address] [facility] [address] [place] [address] Dx: Atrial flutter, unspecified type (HCC) [I48.92]; Congestive heart failure, unspecified HF chronicity, unspecified heart failure type (HCC) [I50.9] Cardiology Comment on above: Dx: Atrial flutter, unspecified type (HCC) [I48.92]; Congestive heart failure, unspecified HF chronicity, unspecified heart failure type (HCC) [I50.9] Start: 09-02-2025 HPV TESTING HPV TESTING [facility] Start: 09-02-2025 PAP TESTING PAP TESTING [facility] Start: 07-30-2025 DIABETES SCREEN DIABETES SCREEN [facility] Start: 07-30-2025 Diabetes Screening Diabetes Screenin g [facility] Start: 07-29-2025 End: 07-29-2025 Patient encounter procedure Cat Scan Comment on above: 6 month LDCT 6 month LCS Start: 07-23-2025 End: 07-23-2025 Patient encounter procedure 07/23/2025 12:00 PM EDT Office Visit Family Medicine [place] [address] [place], [place] [id number] Phuc Martines, [address] [place] [address] 6 month follow up [facility] [place] Comment on above: 6 month follow up Start: 06-22-2025 End: 06-22-2025 Patient encounter procedure Pulmonary Medicine Comment on above: 6 month f/u Start: 05-17-2025 End: 05-17-2025 Patient encounter procedure 05/17/2025 9:00 PM EDT Office Visit Neurology [address] [place] [address] Daytime sleepiness [R40.0] Neurology Comment on above: Daytime sleepiness [ R40.0] Start: 04-23-2025 End: 04-23-2025 Patient encounter procedure 04/23/2025 3:00 PM EDT Office Visit Family Medicine [place] [address] [place] [address] Terrie Robledo APRN.RAILWAY TRACK PLANT OPERATOR [address] [place] [address] increased confussion [facility] [place] Comment on above: increased confussion Start: 03-31-2025 End: 03-31-2025 Patient encounter procedure 03/31/2025 1:00 PM EDT Office Visit Family Medicine [place] [address] [place] [address] PodJanette esquivel APRN.RAILWAY TRACK PLANT OPERATOR [address] [facility] [place] [address] BP follow up [facility] [place] Comment on above: BP follow up Start: 03-30-2025 Patient referral [facility] Work Phone: Start: 03-30-2025 Evaluation of diagno stic study results [facility] Start: 03-13-2025 Annual PCP Team Carton Liner tiffanie Disease Visit Annual PCP Team Chronic Disease Visit [facility] Start: 03-13-2025 Anxiety Screening Anxiety Screening [facility] Start: 03-13-2025 Depression Screening Depression Scre [facility] Start: 03-10-2025 End: 03-10-2025 Patient encounter procedure 03/10/2025 1:00 PM EDT Office Visit Pulmonary Medicine [address] [facility] [address] Lisa Goodman APRN.RAILWAY TRACK PLANT OPERATOR [address] [facility] [address] recent hospital stay Pulmonary Medicine Comment on above: recent hospital stay Start: 02-23-2025 Patient discharge [facility] Start: 02-20-2025 Vital signs measurements [facility] Start: 02-20-2025 Continuous pulse oximetry [facility] Start: 02-20-2025 Vital signs measurements [facility] Start: 02-20-2025 Vital signs measurements [facility] Start: 02-20-2025 Care planning and pr oblem solving actions [facility] Start: 02-20-2025 Vital signs measurements [facility] Start: 02-20-2025 Vital signs measurements [facility] Start: 02-20-2025 Vital signs measurements [facility] Start: 02-20-2025 Vital signs measurements [facility] Start: 02-20-2025 Dual pressure sponta neous ventilation support [facility] Start: 02-20-2025 Physiotherapy of chest [facility] Start: 02-19-2025 Vital signs measurements [facility] Start: 02-19-2025 Vital signs measurements [facility] Start: 02-19-2025 Vital signs measurements [facility] Start: 02-19-2025 Application of elast ic bandage [facility] Start: 02-19-2025 Assessment of risk o f venous thromboembolism [facility] Start: 02-19-2025 Bedrest [facility] Start: 02-19-2025 Elevation of affecte d extremity [facility] Start: 02-19-2025 Elevation of head of bed [facility] Start: 02-19-2025 Insertion of cathete r into peripheral vein [facility] Start: 02-19-2025 Measuring intake and output [facility] Start: 02-19-2025 Notification of physician [facility] Start: 02-19-2025 Oxygen therapy [facility] Start: 02-19-2025 Patient education [facility] Start: 02-19-2025 Providing care accor ding to standard [facility] Start: 02-19-2025 Referral to service [facility] Start: 02-19-2025 [facility] Start: 02-19-2025 Vital signs measurements [facility] Start: 02-19-2025 Following clinical pathway protocol [facility] Start: 02-19-2025 Admission procedure [facility] Start: 02-19-2025 End: 02-19-2025 [facility] Start: 02-19-2025 Blood culture Blood Culture [facility] Start: 02-19-2025 Inhalation therapy procedure [facility] Start: 02-17-2025 End: 02-17-2025 Patient encounter procedure 02/17/2025 4:20 PM EDT Office Visit Family Medicine [place] [address] [place] [address] Phuc Martines DO [address] [place] [address] FOLLOW UP [facility] [place] Comment on above: FOLLOW UP Start: 01-28-2025 BP Controlled (<130/80) BP Controlle d (<130/80) [facility] Start: 01-26-2025 DIABETES SCREEN DIABETES SCREEN [facility] Start: 01-25-2025 End: 01-25-2025 Patient encounter procedure Cat Scan Comment on above: LDCT [facility]CS Start: 01-20-2025 End: 01-20-2025 Patient encounter procedure 01/20/2025 3:00 PM EDT Office Visit [facility] [place] [address] [facility] [place] [address] Phuc Martines DO [address] [place] [address] FOLLOW UP [facility] [place] Comment on above: FOLLOW UP Start: 01-20-2025 End: 04-21-2025 Cobalamin (Vitamin B12) [Mass/volume] in Serum or Plasma [facility] Comment on above: Expected: 01/20/2025 , Expires: 04/21/2025 Start: 01-20-2025 End: 04-21-2025 Folate [Mass/volume] in Serum or Plasma [facility] Comment on above: Expected: 01/20/2025 , Expires: 04/21/2025 Start: 01-20-2025 End: 04-21-2025 Iron and Iron binding capacity panel - Serum or Plasma [facility] Comment on above: Expected: 01/20/2025 , Expires: 04/21/2025 Start: 01-20-2025 End: 04-21-2025 Thyrotropin [Units/volume] in Serum or Plasma [facility] Work Phone: Comment on above: Expected: 01/20/2025 , Expires: 04/21/2025 Start: 01-20-2025 End: 04-21-2025 Thyroxine (T4) free [Mass/volume] in Serum or Plasma [facility] Comment on above: Expected: 01/20/2025 , Expires: 04/21/2025 Start: 01-20-2025 End: 04-21-2025 Triiodothyronine (T3) Free [Mass/volume] in Serum or Plasma [facility] Comment on above: Expected: 01/20/2025 , Expires: 04/21/2025 Start: 12-26-2024 End: 11-18-2025 CT Lung parenchyma WO contrast CT LUNG FOLLOWUP WO IVCON Radiology Routine Expected: 12/26/2024, Expires: 11/18/2025 [facility] Work Phone: Comment on above: Expected: 12/26/2024 , Expires: 11/18/2025 Start: 12-25-2024 End: 12-25-2024 Patient encounter procedure 12/25/2024 11:30 AM EST Office Visit Pulmonary Medicine [address] [place] [address] Lisa Goodman APRN.RAILWAY TRACK PLANT OPERATOR [address] [place] [id number] 6 MTH F/U COPD Pulmonary Medicine Comment on above: 6 MTH F/U COPD Start: 12-03-2024 End: 12-03-2024 Patient encounter procedure 12/03/2024 11:10 AM EST Appointment Mammogram [address] [place] [address] Encounter for screening mammogram for breast cancer [Z12.31] Mammogram Comment on above: Encounter for screen ing mammogram for breast cancer [Z12.31] Start: 11-27-2024 End: 02-26-2025 CBC W Auto Differential panel - Blood COMPLETE BLOOD COUNT AND DIFFERENTIAL Lab Routine Dyslipidemia Expected: 11/27/2024, Expires: 02/26/2025 [facility] Comment on above: Expected: 11/27/2024 , Expires: 02/26/2025 Start: 11-27-2024 End: 02-26-2025 Comprehensive metabolic 2000 panel - Serum or Plasma COMPREHENSIVE METABOLIC PANEL Lab Routine Dyslipidemia Impaired fasting glucose Expected: 11/27/2024, Expires: 02/26/2025 [facility] Comment on above: Expected: 11/27/2024 , Expires: 02/26/2025 Start: 11-27-2024 End: 02-26-2025 Hemoglobin A1c in Blood HEMOGLOBIN A1C Lab Routine Impaired fasting glucose Expected: 11/27/2024, Expires: 02/26/2025 [facility] Work Phone: Comment on above: Expected: 11/27/2024 , Expires: 02/26/2025 Start: 11-27-2024 End: 02-26-2025 Lipid 1996 panel - Serum or Plasma LIPID PANEL BASIC Lab Routine Dyslipidemia Expected: 11/27/2024, Expires: 02/26/2025 [facility] Comment on above: Expected: 11/27/2024 , Expires: 02/26/2025 Start: 10-28-2024 Advance Directive Discussion Advance Directive Discussion [facility] Start: 10-19-2024 End: 10-19-2024 Patient encounter procedure Cat Scan Comment on above: LUNG SCREENING CT LUNG SCREENING Start: 09-17-2024 Mammography Mammogram Screening [facility] Start: 09-17-2024 Screening for malign ant neoplasm of breast Mammogram Screening [facility] Start: 09-08-2024 End: 09-08-2024 Patient encounter procedure 09/08/2024 10:40 AM EST Office Visit Family [place] [place] [address] [place] [address] Phuc Martines DO [address] [place] [address] 6 month follow up [facility] [place] Comment on above: 6 month follow up Start: 08-14-2024 Annual PCP Team Carton Liner tiffanie Disease Visit Annual PCP Team Chronic Disease Visit [facility] Start: 08-14-2024 BP Controlled (<130/80) BP Controlle d (<130/80) [facility] Start: 06-28-2024 Covid-19 Vaccine () Covid-19 Vaccine () [facility] Start: 06-28-2024 Covid-19 Vaccine ( season) Covid-19 Vaccine ( season) [facility] Start: 06-28-2024 Influenza vaccination Influenza Vacc ine (#1) [facility] Start: 06-26-2024 End: 06-26-2024 Patient encounter procedure 06/26/2024 11:45 AM EDT Office Visit Pulmonary Medicine [address] [place], [place] [id number] Diana Gonzalez MD [address] [place], [place] [id number] 6 month f/u Pulmonary Medicine Comment on above: 6 month f/u Start: 04-26-2024 End: 07-26-2024 Bacteria identified in Wound by Culture ABSCESS AND WOUND CULTURE WITH GRAM STAIN Microbiology Routine Skin infection Expected: 04/26/2024, Expires: 07/26/2024 [facility] Work Phone: Comment on above: Expected: 04/26/2024 , Expires: 07/26/2024 Start: 02-07-2024 ANNUAL PCP TEAM ROTARY OPERATOR TIFFANIE DISEASE VISIT ANNUAL PCP TEAM CHRONIC DISEASE VISIT [facility] Start: 12-24-2023 End: 03-24-2024 CBC W Auto Differential panel - Blood CBC + DIFF Lab Routine Dyslipidemia Expected: 12/24/2023, Expires: 03/24/2024 [facility] Work Phone: Comment on above: Expected: 12/24/2023 , Expires: 03/24/2024 Start: 12-24-2023 End: 03-24-2024 Comprehensive metabolic 2000 panel - Serum or Plasma COMP METABOLIC PANEL Lab Routine Dyslipidemia Expected: 12/24/2023, Expires: 03/24/2024 [facility] Work Phone: Comment on above: Expected: 12/24/2023 , Expires: 03/24/2024 Start: 12-24-2023 End: 03-24-2024 Hemoglobin A1c in Blood HGB A1C Lab Routine Impaired fasting glucose Expected: 12/24/2023, Expires: 03/24/2024 [facility] Work Phone: Comment on above: Expected: 12/24/2023 , Expires: 03/24/2024 Start: 12-24-2023 End: 03-24-2024 Lipid 1996 panel - Serum or Plasma LIPID PANEL BASIC Lab Routine Dyslipidemia Expected: 12/24/2023, Expires: 03/24/2024 [facility] Work Phone: Comment on above: Expected: 12/24/2023 , Expires: 03/24/2024 Start: 10-28-2023 Advance Directive Discussion Advance Directive Discussion [facility] Start: 10-28-2023 Behavioral Health Screening Behavioral Health Screening [facility] Start: 10-28-2023 Depression Assessment Depression Ass essment [facility] Start: 09-28-2023 ANNUAL PCP TEAM ROTARY OPERATOR TIFFANIE DISEASE VISIT ANNUAL PCP TEAM CHRONIC DISEASE VISIT [facility] Start: 09-11-2023 Mammography [facility] Start: 08-29-2023 Influenza vaccination LUNG CANCER SC REENING [facility] Start: 08-29-2023 Screening for malign ant neoplasm of lung Lung Cancer Screening [facility] Start: 08-14-2023 End: 11-13-2023 25-hydroxyvitamin D3 [Mass/volume] in Serum or Plasma [facility] Work Phone: Comment on above: Expected: 08/14/2023 , Expires: 11/13/2023 Start: 08-14-2023 End: 11-13-2023 Cobalamin (Vitamin B12) [Mass/volume] in Serum or Plasma [facility] Work Phone: Comment on above: Expected: 08/14/2023 , Expires: 11/13/2023 Start: 08-14-2023 End: 11-13-2023 Comprehensive metabolic 2000 panel - Serum or Plasma [facility] Work Phone: Comment on above: Expected: 08/14/2023 , Expires: 11/13/2023 Start: 08-14-2023 End: 11-13-2023 Hemoglobin A1c in Blood [facility] Work Phone: Comment on above: Expected: 08/14/2023 , Expires: 11/13/2023 Start: 08-14-2023 End: 11-13-2023 Lipid 1996 panel - Serum or Plasma [facility] Work Phone: Comment on above: Expected: 08/14/2023 , Expires: 11/13/2023 Start: 08-14-2023 End: 11-13-2023 Thyrotropin [Units/volume] in Serum or Plasma [facility] Work Phone: Comment on above: Expected: 08/14/2023 , Expires: 11/13/2023 Start: 08-14-2023 End: 11-13-2023 Thyroxine (T4) free [Mass/volume] in Serum or Plasma [facility] Work Phone: Comment on above: Expected: 08/14/2023 , Expires: 11/13/2023 Start: 08-14-2023 End: 11-13-2023 Triiodothyronine (T3) Free [Mass/volume] in Serum or Plasma [facility] Work Phone: Comment on above: Expected: 08/14/2023 , Expires: 11/13/2023 Start: 08-01-2023 ANNUAL PCP TEAM ROTARY OPERATOR TIFFANIE DISEASE VISIT ANNUAL PCP TEAM CHRONIC DISEASE VISIT [facility] Start: 06-28-2023 Covid-19 Vaccine ( season) Covid-19 Vaccine ( season) [facility] Start: 06-28-2023 Influenza vaccination [facility] Start: 05-01-2023 Adult depression screening assessment DEPRESSION SCREENING [facility] Start: 05-01-2023 ANNUAL PCP TEAM ROTARY OPERATOR TIFFANIE DISEASE VISIT ANNUAL PCP TEAM CHRONIC DISEASE VISIT [facility] Start: 03-06-2023 End: 10-06-2023 Us abdominal real time w/image limited US ABD SPLEEN Radiology Routine Cyst of spleen Expected: 03/06/2023, Expires: 10/06/2023 [facility] Work Phone: Comment on above: Expected: 03/06/2023 , Expires: 10/06/2023 Start: 01-30-2023 ANNUAL PCP TEAM ROTARY OPERATOR TIFFANIE DISEASE VISIT ANNUAL PCP TEAM CHRONIC DISEASE VISIT [facility] Start: 01-30-2023 BP CONTROLLED (<130/80) BP CONTROLLE D (<130/80) [facility] Start: 01-30-2023 zzBP Controlled (<13 0/80) (Retired) zzBP Controlled (<130/80) (Retired) [facility] Start: 10-28-2022 ADVANCE DIRECTIVE DISCUSSION ADVANCE DIRECTIVE DISCUSSION [facility] Start: 10-28-2022 DEPRESSION ASSESSMENT DEPRESSION ASS ESSMENT [facility] Start: 2022 ADVANCE DIRECTIVE DISCUSSION ADVANCE DIRECTIVE DISCUSSION [facility] Start: 2022 BONE DENSITY BONE DENSITY [facility] Start: 2022 Bone Density Screening Bone Density Screening [facility] Start: 2022 PNEUMOCOCCAL (3 - PP SV23 if available, else PCV20) PNEUMOCOCCAL (3 - PPSV23 if available, else PCV20) [facility] Start: 2022 PNEUMOCOCCAL (3 - PP SV23 or PCV20) PNEUMOCOCCAL (3 - PPSV23 or PCV20) [facility] Start: 2022 PNEUMOCOCCAL: 65+ (3 - PPSV23 if available, else PCV20) PNEUMOCOCCAL: 65+ (3 - PPSV23 if available, else PCV20) [facility] Start: 2022 Screening for osteoporosis Bone Density Screening [facility] Start: 06-28-2022 Influenza vaccination INFLUENZA (#1) [facility] Start: 05-05-2022 Influenza vaccination LUNG CANCER SC [facility] Start: 04-26-2022 Adult depression screening assessment DEPRESSION SCREENING [facility] Start: 12-16-2021 COVID-19 VACCINE (4 - Booster for Pfizer series) COVID-19 VACCINE (4 - Booster for Pfizer series) [facility] Start: 10-10-2021 COVID-19 VACCINE (4 - Booster for Pfizer series) COVID-19 VACCINE (4 - Booster for Pfizer series) [facility] Start: 10-10-2021 COVID-19 VACCINE (4 - Pfizer series) COVID-19 VACCINE (4 - Pfizer series) [facility] Start: 09-02-2021 Mammography MAMMOGRAM [facility] Start: 2017 RSV Vaccine (1 - 1-d ose 60+ series) RSV Vaccine (1 - 1-dose 60+ series) [facility] Start: 06-30-2016 FECAL OCCULT BLOOD FECAL OCCULT BLOO D [facility] Start: 06-30-2016 Screening for malign ant neoplasm of colon Fecal Occult Blood [facility] Start: 2002 COLOGUARD (FIT-DNA) COLOGUARD (FIT-D NA) [facility] Start: [address] COLONOGRAPHY [facility] Start: 2002 Screening for malign ant neoplasm of colon [facility] Start: 2002 SIGMOIDOSCOPY SIGMOIDOSCOPY [facility] Start: 1975 HIV SCREENING HIV SCREENING [facility] Bacteria identified in Urine by Culture BACTERIAL CULTURE, URINE Microbiology Routine Acute cystitis with hematuria 04/20/2025 11:11 AM EDT [facility] Work Phone: End: 02-25-2026 CT Lung parenchyma WO contrast CT LUNG FOLLOWUP WO IVCON Radiology Routine Lung nodules 1 Occurrences starting 01/26/2025 until 02/25/2026 [facility] Work Phone: Comment on above: 1 Occurrences starti ng 01/26/2025 until 02/25/2026 CT LUNG SCREEN WO IVCON CT LUNG SCREEN WO IVCON Radiology Routine Former cigarette smoker 10/08/2023 1:24 PM EST [facility] Work Phone: End: 08-31-2023 Ct thorax w/o contrast material CT CHEST WO IVCON Radiology Routine Chronic obstructive pulmonary disease, unspecified COPD type (HCC) Chronic respiratory failure with hypoxia (HCC) Stage 3 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) Oxygen dependent 1 Occurrences starting 08/01/2022 until 08/31/2023 [facility] Work Phone: Comment on above: 1 Occurrences starti ng 08/01/2022 until 08/31/2023 End: 11-20-2025 DBT Breast - bilateral screening ANUSHA SCREENING W ASHLEY Radiology Routine Encounter for screening mammogram for breast cancer 1 Occurrences starting 10/21/2024 until 11/20/2025 [facility] Work Phone: Comment on above: 1 Occurrences starti ng 10/21/2024 until 11/20/2025 ECG COMPLETE ECG COMPLETE ECG Routine Tachycardia Atrial flutter, unspecified type (HCC) Ordered: 04/23/2025 [facility] Work Phone: Comment on above: Ordered: 04/23/2025 End: 02-09-2023 Echocardiography ECHO Cardiology Routine Chronic obstructive pulmonary disease, unspecified COPD type (HCC) 1 Occurrences starting 02/09/2022 until 02/09/2023 [facility] Work Phone: Comment on above: 1 Occurrences starti ng 02/09/2022 until 02/09/2023 End: 09-12-2024 ANUSHA SCREENING ANUSHA SCREENING Radiology Routine Encounter for screening mammogram for malignant neoplasm of breast 1 Occurrences starting 08/14/2023 until 09/12/2024 [facility] Work Phone: Comment on above: 1 Occurrences starti ng 08/14/2023 until 09/12/2024 Noninvasive ear/puls e oximetry multiple deter [id number] Procedures Routine Chronic obstructive pulmonary disease, unspecified COPD type (HCC) Oxygen dependent Ordered: 09/24/2022 [facility] Work Phone: Comment on above: Ordered: 09/24/2022 OXIMETRY - NOCTURNAL OXIMETRY - NOCTURNAL Procedures Routine Chronic obstructive pulmonary disease, unspecified COPD type (HCC) Chronic hypoxemic respiratory failure (HCC) Ordered: 03/16/2022 [facility] Work Phone: Comment on above: Ordered: 03/16/2022 OXIMETRY - NOCTURNAL OXIMETRY - NOCTURNAL Procedures Routine Chronic obstructive pulmonary disease, unspecified COPD type (HCC) Chronic respiratory failure with hypoxia (HCC) Stage 3 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) Oxygen dependent Ordered: 08/01/2022 [facility] Work Phone: Comment on above: Ordered: 08/01/2022 End: 03-11-2023 OXIMETRY WITH AMBULATION OXIMETRY WITH AMBULATION PFT Routine Chronic obstructive pulmonary disease, unspecified COPD type (HCC) 1 Occurrences starting 02/09/2022 until 03/11/2023 [facility] Work Phone: Comment on above: 1 Occurrences starti ng 02/09/2022 until 03/11/2023 End: 06-28-2024 OXIMETRY WITH AMBULATION OXIMETRY WITH AMBULATION PFT Routine Chronic obstructive pulmonary disease, unspecified COPD type (HCC) Oxygen dependent 1 Occurrences starting 05/30/2023 until 06/28/2024 [facility] Work Phone: Comment on above: 1 Occurrences starti ng 05/30/2023 until 06/28/2024 Patient Education Coping with He art Failure [facility] Work Phone: Patient referral [facility] Work Phone: End: 03-10-2026 Polysomnogram POLYSOMNOGRAM (PSG) Procedures Routine Daytime sleepiness 1 Occurrences starting 03/10/2025 until 03/10/2026 [facility] Work Phone: Comment on above: 1 Occurrences starti ng 03/10/2025 until 03/10/2026 End: 10-28-2023 Radiologic exam chest 2 views XR CHEST 2V FRONTAL/LAT Radiology Routine COVID Bacterial sinusitis Chronic obstructive pulmonary disease, unspecified COPD type (HCC) 1 Occurrences starting 09/28/2022 until 10/28/2023 [facility] Work Phone: Comment on above: 1 Occurrences starti ng 09/28/2022 until 10/28/2023 Radiologic exam ches t 2 views XR CHEST 2V FRONTAL/LAT Radiology Routine COVID Bacterial sinusitis Chronic obstructive pulmonary disease, unspecified COPD type (HCC) 09/28/2022 1:22 PM EST [facility] Work Phone: End: 10-05-2023 Screening mammography bi 2-view breast inc cad ANUSHA SCREENING Radiology Routine Encounter for screening mammogram for breast cancer 1 Occurrences starting 09/05/2022 until 10/05/2023 [facility] Work Phone: Comment on above: 1 Occurrences starti ng 09/05/2022 until 10/05/2023 End: 03-11-2023 SPIROMETRY BASELINE ONLY SPIROMETRY BASELINE ONLY PFT Routine Chronic obstructive pulmonary disease, unspecified COPD type (HCC) 1 Occurrences starting 02/09/2022 until 03/11/2023 [facility] Work Phone: Comment on above: 1 Occurrences starti ng 02/09/2022 until 03/11/2023 SPIROMETRY BASELINE ONLY SPIROME TRY BASELINE ONLY PFT Routine Chronic obstructive pulmonary disease, unspecified COPD type (HCC) 03/16/2022 8:57 AM EDT [facility] Work Phone: End: 09-29-2023 Us abdominal real time w/image limited US ABD SPLEEN Radiology Routine Cyst of spleen 1 Occurrences starting 08/30/2022 until 09/29/2023 [facility] Work Phone: Comment on above: 1 Occurrences starti ng 08/30/2022 until 09/29/2023 End: 04-12-2025 XR Chest PA and Lateral XR CHEST 2V FRONTAL/LAT Radiology Routine Chronic obstructive pulmonary disease, unspecified COPD type (HCC) Acute bronchitis with chronic obstructive pulmonary disease (COPD) (HCC) (HCC) 1 Occurrences starting 03/13/2024 until 04/12/2025 [facility] Work Phone: Comment on above: 1 Occurrences starti ng 03/13/2024 until 04/12/2025 [facility] Immunizations Immunization Date Immunization Notes Care Provider Lesvia maldonado 09-28-2024 influenza, high dose seasonal, preservative-free Maricruz Camp SHERIFF OFFICER.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: [facility] 09-28-2024 respiratory syncytia l virus (RSV) vaccine, bivalent (ABRYSVO) Maricruz Camp SHERIFF OFFICER.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: [facility] 08-14-2023 influenza (HD-IIV4) vaccine, age 65+ yr, high dose, quadrivalent, PF (FLUZONE HIGH-DOSE) Phuc Martines DO Work Phone: [facility] Work Phone: 08-14-2023 influenza virus vacc ine, unspecified formulation Diana Gonzalez MD Work Phone: [facility] 02-06-2023 pneumococcal (PCV20) vaccine, 20 valent (PREVNAR 20) Diana Gonzalez MD Work Phone: [facility] Work Phone: 08-01-2022 influenza, injectabl e, quadrivalent, contains preservative Phuc Martines DO Work Phone: [facility] Work Phone: 08-01-2022 influenza virus vacc ine, unspecified formulation Phuc Martines DO Work Phone: [facility] 08-15-2021 influenza, injectabl e, quadrivalent, preservative free Hodan Christine PA-C Work Phone: [facility] Work Phone: 01-03-2021 COVID-19 vaccine, ag e 12+ yr (PFIZER-BIONTECH - PURPLE TOP) Phuc Martines DO Work Phone: [facility] Work Phone: 12-15-2020 COVID-19 vaccine, ag e 12+ yr (PFIZER-BIONTECH - PURPLE TOP) Phuc Martines DO Work Phone: [facility] Work Phone: 07-06-2020 influenza, injectabl e, quadrivalent, contains preservative Phuc Martines DO Work Phone: [facility] Work Phone: 11-20-2019 zoster vaccine recombinant Phuc Martines DO Work Phone: [facility] Work Phone: 08-04-2019 influenza, injectabl e, quadrivalent, contains preservative Phuc Martines DO Work Phone: [facility] Work Phone: 08-30-2018 influenza, injectabl e, quadrivalent, contains preservative Phuc Martines DO Work Phone: [facility] 05-06-2018 zoster vaccine recombinant Phuc Martines DO Work Phone: [facility] Work Phone: 08-31-2017 influenza, injectabl e, quadrivalent, contains preservative Phuc Martines DO Work Phone: [facility] 05-06-2017 pneumococcal polysaccharide vaccine, 23 valent Phuc Martines DO Work Phone: [facility] 09-28-2016 pneumococcal conjuga te vaccine, 13 valent Hpuc Martines DO Work Phone: [facility] 08-18-2016 influenza, injectabl e, quadrivalent, contains preservative Phuc Martines DO Work Phone: [facility] 08-01-2016 influenza, injectabl e, quadrivalent, preservative free Dr. Phuc Taylorrison DO Work Phone: [facility] 11-09-2015 tetanus toxoid, redu benigno diphtheria toxoid, and acellular pertussis vaccine, adsorbed Phuc Martines DO Work Phone: [facility] Work Phone: 07-28-2015 influenza, injectabl e, quadrivalent, contains preservative Phuc Martines DO Work Phone: [facility] Work Phone: 08-05-2014 influenza, seasonal, injectable Phuc Martines DO Work Phone: [facility] 09-05-2013 influenza virus vacc ine, unspecified formulation Phuc Martines DO Work Phone: [facility] Work Phone: 11-12-2012 influenza virus vacc ine, unspecified formulation Phuc Martines DO Work Phone: [facility] 09-03-2011 influenza virus vacc ine, unspecified formulation Phuc Martines DO Work Phone: [facility] Work Phone: 08-15-2010 influenza virus vacc ine, unspecified formulation Phuc Martines DO Work Phone: [facility] Work Phone: 07-28-2009 influenza virus vacc ine, unspecified formulation Phuc Martines DO Work Phone: [facility] 07-07-2008 pneumococcal polysaccharide vaccine, 23 valent Phuc Martines DO Work Phone: [facility] 11-19-2005 tetanus toxoid, redu benigno diphtheria toxoid, and acellular pertussis vaccine, adsorbed Phuc Martines DO Work Phone: [facility] Work Phone: Payers Date Payer Category Payer Self-pay [address] [facility] [employer] SUPP[employer]MENT [id number] 2022 Medicare [id number] 2022 Medicare [id number] 2021 Unknown KATI SPAIN O JEAN MARIE [id number] 2021-Present [phone] [id number] [place], [place] [address] [facility] [id number] 2017 Unknown [id number] 2014 Unknown [id number] Unknown [id number] Unknown [id number] Unknown [id number] Unknown [id number] Unknown [id number] Unknown [id number] Unknown [id number] Unknown [id number] Unknown [id number] Social History Date Type Detail Facility Start: 06-22-2022 End: 06-26-2024 Tobacco smoking status NMIS Ex-smoker [facility] Work Phone: Start: 1971 End: 12-20-2008 History of tobacco use Current smoker [facility] Start: 1971 End: 12-20-2008 History of tobacco use Cigarette Smoker [facility] Start: 01-30-2022 End: 04-23-2025 Alcohol intake Current drinker of alcohol (finding) [facility] Start: 05-28-2020 End: 09-02-2020 History SDOH Alcohol Frequency 5 [facility] Start: 09-02-2020 End: 10-30-2021 History SDOH Alcohol Std Drinks 2 [facility] Start: 11-14-2019 End: 05-28-2020 History SDOH Social Connections Get Together 3 [facility] Start: 05-28-2020 History SDOH Social Connections [employer] 98 [facility] Start: 11-14-2019 History SDOH Physica l Activity DPW 7 [facility] Start: 11-14-2019 End: 10-30-2021 History SDOH Physical Activity MPS 1 [facility] Start: 11-14-2019 Education 21 [facility] Start: 08-02-2015 End: 06-22-2022 Tobacco Comment Parents smoked in childhood home. Spouse smokes, not in home. [facility] Start: 1955 Sex Assigned At Female C [facility] Start: 12-11-2020 End: 09-28-2022 Exposure to SARS-CoV-2 (event) Not sure [facility] Work Phone: Start: 10-02-2020 End: 06-22-2022 Cigarettes smoked current (pack per day) - Reported 1 [facility] Work Phone: Start: 06-22-2022 End: 06-26-2024 Tobacco use and exposure Smokeless tobacco non-user [facility] Start: 10-02-2020 End: 02-06-2023 Tobacco use panel [facility] Work Phone: Adult Depression Screening Assessment 0 [facility] Work Phone: Start: 05-28-2020 Gender identity Identifies as female gender (finding) [facility] Start: 05-28-2020 Sexual orientation Heterosexual (fin ding) [facility] How often to you hav e a drink containing alcohol? 4 or more times a week [facility] Work Phone: How many standard drinks containing alcohol do you have on a typical day? 3 or 4 [facility] Work Phone: How often do you hav e 6 or more drinks on 1 occasion? Less than monthly [facility] Work Phone: Do you feel stress - tense, restless, nervous, or anxious, or unable to sleep at night because your mind is troubled all the time - these days [OSQ] Only a little [facility] (I/We) worried wheth er (my/our) food would run out before (I/we) got money to buy more. Never true [facility] Work Phone: In the past 12 month s, was there a time when you were not able to pay the mortgage or rent on time? No [facility] Are you now , , , , never or living with a partner? [facility] How often do you hav e 6 or more drinks on 1 occasion? Weekly [facility] How hard is it for y ou to pay for the very basics like food, housing, medical care, and heating Not very hard [facility] Start: 04-15-2017 Heavy Heavy [facility] Start: 04-15-2017 None None [facility] Start: 04-15-2017 Spouse/ Significant Other Spouse/ Significant Other [facility] Start: 04-15-2017 Non-smoker Non-smoker [facility] Start: 02-23-2025 Sex Female (finding) [facility] Goals Date Patient Goal Desired Activity /State Functional Status Date Assessment Result Facility 02-23-2025 Functional status Ambulates [facility] Work Phone: 05-09-2015 Are you deaf, or do you have serious difficulty hearing No 05/09/2015 3:40 PM EDT Carolina Horner Cma No [facility] 05-09-2015 Are you blind, or do you have serious difficulty seeing, even when wearing glasses No 05/09/2015 3:40 PM EDT Carolina Horner Cma No [facility] 05-09-2015 Do you have serious difficulty walking or climbing stairs No 05/09/2015 3:40 PM EDT Carolina Horner Cma No [facility] 05-09-2015 Do you have difficul ty dressing or bathing No 05/09/2015 3:40 PM EDCarolina Steele Cma No [facility] 05-09-2015 Because of a physica l, mental, or emotional condition, do you have difficulty doing errands alone such as visiting a physician's office or shopping No 05/09/2015 3:40 PM EDT Carolina Horner Cma [facility] Mental Status Date Assessment Result Facility 02-23-2025 Cognitive function Voice/Name [facility] Work Phone: 05-09-2015 Because of a physica l, mental, or emotional condition, do you have serious difficulty concentrating, remembering, or making decisions No 05/09/2015 3:40 PM EDT Carolina Horner Cma [facility] Clinical Notes 05-19-2019 to 04-23-2025 Patient InstructionsTerrie Robledo APRN.CNP - 04/23/2025 2:49 PM EDTTelephone Encounter - Sandra LandisJESSICA - 04/22/2025 8:29 AM EDTAddendum Note - Brandan Chang LPN - 04/20/2025 11:12 AM EDT Note Date & Type Note Facility 04-23-2025 Instructions Terrie Robledo APRN.CNP - 04/23/2025 3:31 PM EDT Sent patient to ER documented in this encounter [facility] 04-23-2025 History of Presen t illness Narrative [...] week for further evaluation. and Recording using OpenROV software for draft documentation of the visit was discussed with the patient/authorized payroll representative; all questions welcomed and answered. Patient/authorized payroll representative agreed to proceed HISTORY OF PRESENT ILLNESS: Linwood was in the hospital in January for new onset of atrial flutter. She was initiated on eliquis and metoprolol and now being seen by cardiology. She was referred to a [facility] cardio electro doc and is in the [...] failure (HCC) COPD (chronic obstructive pulmonary disease) ([facility]) 02/03/2010 Coronary artery disease No [place], CHF. No heart cath. Diverticulosis of colon [...] hours as needed for wheezing/shortness of breath. dbswpaczvym-blmnciost-mzzfremw (TRELEGY ELLIPTA) 200-62.5-25 mcg inhalation powder Inhale [...] her presentation/symptoms/assessment , she was sent to [facility] ER for further evaluation. Her daughter was coming to pick her up. Report was called to [facility] ER physician/hospitalist. Discussed treatment plan and patient voices understanding. Patient's questions answered appropriately. Medications and potential side effects were discussed and patient voices understanding. Medical Decision Making: Problems: High: Chronic illness with severe change Risk: High: Decision on hospitalization Medical Decision Making Level: 5 - High Return to the office as scheduled or as needed for worsening/no improvement. Terrie Robledo APRN.RAILWAY TRACK PLANT OPERATOR Recording using OpenROV software for draft documentation of the visit was discussed with the patient/authorized payroll representative; all questions welcomed and answered. Patient/authorized payroll representative agreed to proceed documented in this encounter [facility] 04-22-2025 Telephone encounter Note Pt was notified of the results. Pt verbalized understanding. Sandra Landis MA [facility] 04-22-2025 Miscellaneous Notes Pt was notified of [...] helping with symptoms. documented in this encounter [facility] 04-22-2025 Telephone encounter Note Please contact patient let her know urine culture reveals no UTI. It did reveal mixed bacteria which may drink a contamination during collection. She needs follow-up with PCP to ensure resolution of blood in the urine. She may continue antibiotic as prescribed if it is helping with symptoms. [facility] Work Phone: 04-20-2025 Note Addended by: BRANDAN CHANG on: 04/20/2025 11:12 AM Modules accepted: Orders [facility] 04-20-2025 Miscellaneous Notes Addended by: BRANDAN CHANG on: 04/20/2025 11:12 AM Modules accepted: Orders documented in this encounter [facility] 04-20-2025 Note HNO ID: [id number] Author: DAMON EUGENE APRN.RAILWAY TRACK PLANT OPERATOR Service: ? Author Type: Nurse Practitioner Type: [...] week for further evaluation. and Recording using OpenROV software for draft documentation of the visit was discussed with the patient/authorized payroll representative; all questions welcomed and answered. Patient/authorized payroll representative agreed to proceed MDM Procedures [facility] 04-20-2025 History of Presen t illness Narrative [...] Symptoms have progressively worsened. - Has seen Jantete Bautista twice, who focused on blood pressure [...] week for further evaluation. and Recording using OpenROV software for draft documentation of the visit was discussed with the patient/authorized payroll representative; all questions welcomed and answered. Patient/authorized payroll representative agreed to proceed MDM Procedures documented in this encounter [facility] 03-31-2025 Note HNO ID: [id number] Author: JANETTE DAMON APRN.CNP Service: ? Author Type: Nurse Practitioner Type: Progress Notes Filed: 03/31/2025 13:06 Note Text: 03/31/2025 Patient presents with: BP Check: Had appointment with cardiology yesterday; [facility] Dr. Elena Recording using OpenROV software for draft documentation of the visit was discussed with the patient/authorized payroll representative; all questions welcomed and answered. Patient/authorized payroll representative agreed to proceed SUBJECTIVE: This is a 69 year old that is here today for Above Complaints.. Atrial Flutter: - Recent consultation with Dr. Elena, who referred her to Dr. Marcos Santos, an superintendent plant protection, for potential ablation. - Dr. Elena indicated [...] disease) (HCC) 02/03/2010 Coronary artery disease No [place], CHF. No heart cath. Diverticulosis of colon [...] hours as needed for wheezing/shortness of breath. zoiqyguujpz-lqlnvoasj-xzodehxo (TRELEGY ELLIPTA) 200-62.5-25 mcg inhalation powder Inhale [...] Diabetes Screening du (more content not included)... [facility] 03-31-2025 History of Presen t illness Narrative 03/31/2025 Patient presents with: BP Check: Had appointment with cardiology yesterday; [facility] Dr. Elena Recording using ambient [employer] software for draft documentation of the visit was discussed with the patient/authorized payroll representative; all questions welcomed and answered. Patient/authorized payroll representative agreed to proceed SUBJECTIVE: This is a 69 year old that is here today for Above Complaints.. Atrial Flutter: - Recent consultation with Dr. Elena, who referred her to Dr. Marcos Snatos, an superintendent plant protection, for potential ablation. - Dr. Elena indicated [...] disease) (HCC) 02/03/2010 Coronary artery disease No [place], CHF. No heart cath. Diverticulosis of colon [...] hours as needed for wheezing/shortness of breath. voanogplzfg-jqooenyuc-saxmvlsp (TRELEGY ELLIPTA) 200-62.5-25 mcg inhalation powder Inhale [...] (I48.92) - Referral to Dr. Marcos Santos, superintendent plant protection, for potential ablation procedure. - Patient understands [...] 3 - Low documented in this encounter [facility] 03-10-2025 Instructions Lisa Goodman APRN.CNP - 03/10/2025 1:34 PM EDT [phone] [facility] sleep disorders, [place]. documented in this encounter [facility] 03-10-2025 History of Presen t illness Narrative Images from the original note were not included. Pulmonary Medicine Patients name: Lisa Palumbo PCP: Phuc Martines DO CC: concern for ROXY HPI: Lisa Lucero is a 69 year old female former 98-pxkx-bamv smoker, quitting in 2008 with PMH significant [...] that time. She was just hospitalized at [facility] 02/19 - 02/23 for SOB/leg swelling in [...] disease) (HCC) 02/03/2010 Coronary artery disease No [place], CHF. No heart cath. Diverticulosis of colon [...] ELLIPTA 200-62.5-25 mcg inhalation powder Generic drug: nmbakazhdqg-sdueobgcc-diukawup Inhale 1 Puff as instructed once daily. [...] Recommendations: Followup LDCT in 6 months Reference: [employer]. Lung CT Screening Reporting and Data System (Lung-RADS). Available at: http://www.acr.org/Quality-Safet y/Resources/LungRADS Soil Fertility Extension Specialist: PAT Transcribe Date/Time: Jan 25 2025 11:45A Dictated by : VIDAL PULLIAM MD This examination was interpreted and the report reviewed and electronically signed by: VIDAL PULLIAM MD on Jan 25 2025 11:51AM EST Results-Findings * * *Final Report* * * DATE OF EXAM: Jan 25 2025 11:06AM [facility] [id number] - CT LUNG FOLLOWUP [facility] / PROCEDURE REASON: Lung nodule, < 6mm, high cancer risk * * * * Physician Interpretation * * * * [facility]AMIN[facility]: [facility]: Lung nodules Technique: Spiral CT acquisition of the chest from the thoracic inlet to the upper abdomen without contrast. MQ: [id number] Followup LDCT Patient characteristics: * Cktw-fa-Qxrfn: 1955; Age at exam: 69 years * Gender: Female * Lung Disease: Asymptomatic (no signs or symptoms of lung disease) * Number of Pack Years: 38 * Current smoker (=0) or Number of Years since Quit: 15 * Ordering provider and NPI: MARICRUZ CAMP [id number] * Interpreting radiologist and NPI: Nicole [id number] Exam acquisition parameters: * Exam Date: 01/25/2025 11:06 AM * Site: [facility] * * CT System Turbine Attendant: Siemens * CT System Model: Sensation * [...] which included preparing to see the patient, khly-ur-kefa patient care, completing clinical documentation, performing a medically appropriate examination, counseling and educating the patient/family/caregiver, and ordering medications, tests, or procedures. documented in this encounter [facility] 03-10-2025 Note HNO ID: [id number] Author: LISA GOODMAN APRN.CNP Service: ? Author Type: Nurse Practitioner Type: Progress Notes Filed: 03/10/2025 13:47 Note Text: Pulmonary Medicine Patients name: Lisa Palumbo PCP: Phuc Martines DO CC: concern for ROXY HPI: Lisa Lucero is a 69 year old female former 93-yvwh-hdzq smoker, quitting in 2008 with PMH significant [...] that time. She was just hospitalized at [facility] 02/19 - 02/23 for SOB/leg swelling in [...] failure (HCC) COPD (chronic obstructive pulmonary disease) ([facility]) 02/03/2010 Coronary artery disease No [place], CHF. No heart cath. Diverticulosis of colon [...] ELLIPTA 200-62.5-25 mcg inhalation powder Generic drug: nuieuigwdmw-gooivrrpa-eeombjnc Inhale 1 Puff as instructed once daily. [...] Recommendations: Followup LDCT in 6 months Reference: [place]kin[place] (more content not included)... [facility] 03-01-2025 Instructions Janette Damon APRN.ELVIA - 03/01/2025 12:45 PM EDT Follow-up with pulmonology and discuss possible sleep apnea Make follow-up with cardiology Hold Amlodipine for now documented in this encounter [facility] 03-01-2025 History of Presen t illness Narrative 02/26/2025 Patient presents with: Hospital F/U: [facility] COPD SUBJECTIVE: This is a 69 year old that is here today for Above Complaints. HOSPITAL/ER FOLLOW UP: Reason for visit: SOB, and leg swelling Which facility: [facility] Date of visit: 02/19/2025-02/23/2025 Diagnosis: COPD, atrial [...] as yet. Was wanting to stay within [facility] system. Denies dyspnea, orthopnea wheezing, chest pain, palpitations or leg swelling. Follows with [facility] transition lead. Last appointment on 12/25/2024. Uses 3/4L/NC at rest and 6 L/NC with exertion. She feels her breathing as at her baseline. ER records reviewed PAST MEDICAL HISTORY Diagnosis Date Chronic hypoxemic respiratory failure (HCC) COPD (chronic obstructive pulmonary disease) (HCC) 02/03/2010 Coronary artery disease No [place], CHF. No heart cath. Diverticulosis of colon [...] hours as needed for wheezing/shortness of breath. susjfkjwbhz-ozcsenyte-skazshpu (TRELEGY ELLIPTA) 200-62.5-25 mcg inhalation powder Inhale [...] 427.32, ICD10: I48.92 - she follow-up with [facility] cardiology if unable to get appointment with [...] 4 weeks for hypertension visit Janette Damon APRN.RAILWAY TRACK PLANT OPERATOR Prescription instructions reviewed with patient as applicable. [...] which included preparing to see the patient, wrcf-ov-wwlf patient care, completing clinical documentation, obtaining and/or reviewing separately obtained history, performing a medically appropriate examination, counseling and educating the patient/family/caregiver, and ordering medications, tests, or procedures. documented in this encounter [facility] 03-01-2025 Note HNO ID: [id number] Author: JANETTE DAMON APRN.ELVIA Service: ? Author Type: Nurse Practitioner Type: Progress Notes Filed: 03/01/2025 14:15 Note Text: 02/26/2025 Patient presents with: Hospital F/U: [facility] COPD SUBJECTIVE: This is a 69 year old that is here today for Above Complaints. HOSPITAL/ER FOLLOW UP: Reason for visit: SOB, and leg swelling Which facility: [facility] Date of visit: 02/19/2025-02/23/2025 Diagnosis: COPD, atrial [...] as yet. Was wanting to stay within [facility] system. Denies dyspnea, orthopnea wheezing, chest pain, palpitations or leg swelling. Follows with [facility] transition lead. Last appointment on 12/25/2024. Uses 3/4L/NC at rest and 6 L/NC with exertion. She feels her breathing as at her baseline. ER records reviewed PAST MEDICAL HISTORY Diagnosis Date Chronic hypoxemic respiratory failure (HCC) COPD (chronic obstructive pulmonary disease) (HCC) 02/03/2010 Coronary artery disease No [place], CHF. No heart cath. Diverticulosis of colon [...] hours as needed for wheezing/shortness of breath. hkrcjujcahn-fiiqxpprf-srvnahxy (TRELEGY ELLIPTA) 200-62.5-25 mcg inhalation powder Inhale [...] on 01/13/2030 In (more content not included)... [facility] 02-23-2025 Discharge summary Note Date/Time February 23, 2025 1:22pm [facility] Medical Records Department [address] [place] [address] Instructions for Home/Discharge Instructions 02/23/25 1320 MR#: [id number] Acct: [id number] Name: LISA LUCERO Rep #:[id number] : [...] [Daily Multi-Vitamin] Tablet 1 tab PO DAILY Lawndale Saline 0.65 % aerosol,spray 1 spray intranasal [...] DO; Dr. Kym Norton MD ~ Signed [facility] Work Phone: 1(231) 866-632004-29-2025 Discharge summary Author [facility] Note Date/Time February 23, 2025 2:4 9pm [facility] Medical Records Department [address] [place] [address] Discharge Summary 02/23/25 1322 MR#: [id number] Acct: [id number] Name: LISA LUCERO Rep #:[id number] : 1955 69 From: Yee Jones MD PCP: Dr. Phuc Martines DO Status:AD M IN Location: [facility] [id number] Providers Date of Admission: 02/19/25 Date [...] sodium chloride 0.65 % nasal spray aerosol (Lawndale Saline) 1 spray intranasal BID PRN dry [...] (Auto) 78.1 H, Lymph % (Auto) 11.2 L,[place] % (Auto) 7.9, Eos % (Auto) 1.7, [...] [Daily Multi-Vitamin] Tablet 1 tab PO DAILY Lawndale Saline 0.65 % aerosol,spray 1 spray intranasal [...] Self Care Charges/Coding Visit Charges Inpatient E&M: 22235 Disch Hosp >30min 02/23/25 1449 <Electronically signed by Yee Jones MD> Cosigner Signature (if applicable): CC: Dr. Phuc Martines DO; Dr. Yee Jones MD~ Signed [facility] Work Phone: 1(657) 802-278004-29-2025 Discharge summary [facility] Medical Records Department [address] [place] [address] Discharge Summary 02/23/25 1322 MR#: [id number] Acct: [id number] Name: LISA LUCERO Rep #:[id number] : 1955 69 From: Yee Jones MD PCP: Dr. Phuc Martines DO Status:AD M IN Location: [facility] [id number] Providers Date of Admission: 02/19/25 Date [...] sodium chloride 0.65 % nasal spray aerosol (Lawndale Saline) 1 spray intranasal BID PRN dry [...] (Auto) 78.1 H, Lymph % (Auto) 11.2 L,[place] % (Auto) 7.9, Eos % (Auto) 1.7, [...] [Daily Multi-Vitamin] Tablet 1 tab PO DAILY Lawndale Saline 0.65 % aerosol,spray 1 spray intranasal [...] Self Care Charges/Coding Visit Charges Inpatient E&M: 82382 Disch Hosp >30min 02/23/25 1449 Cosigner Signature (if applicable): CC: Dr. Phuc Martines DO; Dr. Yee Jones MD~ Signed [facility]04-29-2025 Consult note [facility] Medical Records Department [address] [place] [address] Counseling Note - Pharmacy 02/23/25 1410 MR#: [id number] Acct: [id number] Name: LISA LUCERO Rep #:[id number] : 1955 69 From: Brandan Rodas PCP: Dr. Phuc Martines DO Status:AD M IN [facility] Service has performed discharge medication reconciliation [...] understanding of their dischargemedications. Patient counseled by judicial clerk, Pete. Medications at Discharge Home Medications Oxygen, [...] sodium chloride 0.65 % nasal spray aerosol (Lawndale Saline) 1 spray intranasal BID PRN dry [...] Maloneigner Signature (if applicable): CC: ~ Signed [facility]04-29-2025 Discharge summary [facility] Medical Records Department [address] [place] [address] Instructions for Home/Discharge Instructions 02/23/25 1320 MR#: [id number] Acct: [id number] Name: LISA LUCERO Rep #:[id number] : [...] [Daily Multi-Vitamin] Tablet 1 tab PO DAILY Lawndale Saline 0.65 % aerosol,spray 1 spray intranasal [...] DO; Dr. Kym Norton MD ~ Signed [facility]04-29-2025 [facility] Medical Records Department [address] [place] [address] Discharge Summary 02/23/25 1322 MR#: [id number] Acct: [id number] Name: LISA LUCERO Rep #: [id number] : 1955 69 From: Yee Jones MD PCP: Dr. Phuc Martines, Status:ADM IN Location: [facility] [id number] Providers Date of Admission: 02/19/25 Date of [...] sodium chloride 0.65 % nasal spray aerosol (Lawndale Saline) 1 spray intranasal BID PRN dry [...] moderate global right ventricular (more content not included)...[facility]04-28-2025 Progress note Author Yee Jones [facility] Note Date/Time February 22, 2025 4:4 4pm [facility] Medical Records Department [address] [place] [address] Progress Note 02/22/25 1411 MR#: [id number] Acct: [id number] Name: LISA LUCERO Rep #:[id number] : 1955 69 From: Yee Jones MD PCP: Dr. Phuc Martines, DO Status:[facility] IN Location: [place] [address] Subjective Subjective Patient seen and examined. She [...] with ambulation. Charges/Coding Visit Charges Inpatient E&M: 57792 Subs Hosp L2 02/22/25 7434 <Electronically signed by Yee Jones MD> Yee Jones MD Cosigner Signature (if applicable): CC: ~ Signed [facility] Work Phone: 1(950) 395-906604-28-2025 Progress note [facility] Medical Records Department [address] [place] [address] Progress Note 02/22/25 1411 MR#: [id number] Acct: [id number] Name: LISA LUCERO Rep #:[id number] : 1955 69 From: Yee Jones MD PCP: Dr. Phuc Martines, DO Status: M IN Location: [place] [address] Subjective Subjective Patient seen and examined. She [...] with ambulation. Charges/Coding Visit Charges Inpatient E&M: 34478 Subs Hosp L2 02/22/25 164 Yee Jones MD Cosigner Signature (if applicable): CC: ~ Signed [facility]04-27-2025 Progress note Author Claudia Valerio [facility] Note Date/Time February 21, 2025 3:2 8pm [facility] Medical Records Department [address] [address] Progress Note - Hospitalist 02/21/25 1144 MR#: [id number] Acct: [id number] Name: LISA LUCERO Rep #:[id number] : 1955 69 From: Claudia Valerio DO PCP: Dr. Phuc Martines, Status:AD M IN Location: [place] [id number] Reason for Visit Reason for Visit: [...] follow-up and would like to follow-up at [facility]--> she stated she would get a [...] - Patient follows with pulmonary medicine at [facility] - Does not seem to be in [...] on admission Charges/Coding Visit Charges Inpatient E&M: 53593 Subs Hosp L2 02/21/25 1528 <Electronically signed by Claudia Valerio DO> Cosigner Signature (if applicable): CC: ~ Signed [facility] Work Phone: 1(194) 773-339304-27-2025 Progress note [facility] Medical Records Department [address] [place] [address] Progress Note - Hospitalist 02/21/25 1144 MR#: [id number] Acct: [id number] Name: LISA LUCERO Rep #:[id number] : 1955 69 From: Claudia Valerio DO PCP: Dr. Phuc Martines, Status:AD M IN Location: [facility] [id number] Reason for Visit Reason for Visit: [...] follow-up and would like to follow-up at [facility]--> she stated she would get a [...] - Patient follows with pulmonary medicine at [facility] - Does not seem to be in [...] on admission Charges/Coding Visit Charges Inpatient E&M: 49532 Subs Hosp L2 02/21/25 1528 Cosigner Signature (if applicable): CC: ~ Signed [facility]04-26-2025 Progress note Author Claudia Valerio [facility] Note Date/Time February 20, 2025 2:4 4pm [facility] Medical Records Department [address] [address] Progress Note - Hospitalist 02/20/25806 MR#: [id number] Acct: [id number] Name: LISA LUCERO Rep #:[id number] : 1955 69 From: Claudia Valerio DO PCP: Dr. Phuc Martines, DO Status:AD M IN Location: [facility] [id number]- [id number] Reason for Visit Reason for Visit: [...] 80.0 H, Lymph % (Auto) 9.8 L, [place] % (Auto) 8.5, Eos % (Auto) 1.0, [...] Clarity Clear, Urine pH 6.0, Ur Specific [place] 1.010, Urine Protein Negative, Urine Glucose (UA) [...] Cholesterol, Calc 101, VLDL Cholesterol 12, HDL Wnjsjfuhidg62, Cholesterol/HDL Ratio 2.63, TSH 0.626 Micro: Microbiology [...] - Patient follows with pulmonary medicine at [facility] - Does not seem to be in [...] on admission Charges/Coding Visit Charges Inpatient E&M: 20698 Subs Hosp L2 02/20/25 1444 <Electronically signed by Claudia Valerio DO> Cosigner Signature (if applicable): CC: ~ Signed [facility] Work Phone: 1(734) 912-549904-26-2025 Progress note [facility] Medical Records Department [address] [place] [address] Progress Note - Hospitalist 02/20/25 0807 MR#: [id number] Acct: [id number] Name: LISA LUCERO Rep #:[id number] : 1955 69 From: Claudia Valerio DO PCP: Dr. Phuc Martines, Status:AD M IN Location: [place] [id number] Reason for Visit Reason for Visit: Shortness [...] 80.0 H, Lymph % (Auto) 9.8 L, [place] % (Auto) 8.5, Eos % (Auto) 1.0, [...] Clarity Clear, Urine pH 6.0, Ur Specific [place] 1.010, Urine Protein Negative, Urine Glucose (UA) [...] 223, MPV 11.2, Sodium 142, Potassium 3.8, Bujnccpe94 L, Carbon Dioxide 34.3 H, Anion Gap13, [...] Cholesterol, Calc 101, VLDL Cholesterol 12, HDL Vnqhfxmbgiz56, Cholesterol/HDL Ratio 2.63, TSH 0.626 Micro: Microbiology [...] - Patient follows with pulmonary medicine at [facility] - Does not seem to be in [...] on admission Charges/Coding Visit Charges Inpatient E&M: 74362 Subs Hosp L2 02/20/25 1441 Cosigner Signature (if applicable): CC: ~ Signed [facility]04-26-2025 Radiology Diagnostic study note [facility] Imaging Services [address] [place], [place] [address] CTA Chest W/WO Contrast MR#: [id number] Acct: [id number] Name: LISA LUCERO Rep #: [id number] : 1955 F 69 From: Bev Drummond MD PCP: Dr. Phuc Martines, DO Status: AD M IN Study:CTA Chest W/WO Contrast Date of Exam: 02/20/25 Exam# [id number] Ordering Dr: Kinza Valerio DO EXAM: CT [...] in 6 months is recommended. Reading Location: [facility] CC: Dr. Phuc Martines, DO; Dr. Claudia Valerio, DO ~ Soil Fertility Extension Specialist: Signed [facility]04-25-2025 History and physical note Author Kym Norton [facility] Note Date/Time February 19, 2025 4:1 3pm [facility] Medical Records Department [address] [place] [address] H&P Exam - Hospitalist 02/19/25 1548 MR#: [id number] Acct: [id number] Name: LISA LUCERO Rep #:[id number] : 1955 69 From: Kym Norton MD PCP: Dr. Phuc Martines DO Status:AD M IN Location: [facility] [id number]- [id number] HPI - General General Date of Admission: 02/19/25 Date of Service: 02/19/25 Chief Complaint: Increase shortness of breath and lower extremity swelling HPI Narrative LISA LUCERO, is a 69-year-old female with a history of COPD on 3 L nasal cannula and hypertension who presented to [facility] ED 02/19/2025 with increased shortness of breath [...] not note any history of withdrawal symptoms. [facility] Medical History COPD (chronic obstructive pulmonary disease) [...] BID PRN dry 02/19/25 Unknown History aerosol (Lawndale Saline) nasal passages triamcinolone acetonide 0.5 % [...] 80.0 H, Lymph % (Auto) 9.8 L, [place] % (Auto) 8.5, Eos % (Auto) 1.0, [...] Clarity Clear, Urine pH 6.0, Ur Specific [place] 1.010, Urine Protein Negative, Urine Glucose (UA) [...] setting of COPD on 3 L home [id number] secondary to new onset heart failure -Patient [...] 78 Minutes Charges/Coding Visit Charges Inpatient E&M: 50255 Init Hosp L3 02/19/25 1613 <Electronically signed by Kym Norton MD> Cosigner Signature (if applicable): CC: Dr. Phuc Martines DO; Dr. Kym Norton MD~ Signed [facility] Work Phone: 1(881) 758-947004-25-2025 Evaluation note* Diagnosis Onset Date Resolution Status Admit Date Atrial flutter acute January 3:53pm Dyspnea on exertion acute February 19, 2025 3:53pm Shortness of breath acute February 19, 2025 3:53pm Acute on chronic hypoxic respiratory failure chronic February 19, 2025 3:53pm [facility] Work Phone: 1(229) 282-930504-25-2025 Evaluation note* Diagnosis Onset Date Resolution Status Admit Date Atrial flutter acute January 3:53pm Shortness of breath acute February 19, 2025 3:53pm Acute on chronic hypoxic respiratory failure resolved February 19, 2025 3:53pm Dyspnea on exertion resolved February 19, 2025 3:53pm Atrial flutter acute March 30, 2025 11:24am [facility] Work Phone: 1([phone]) 990-739004-25-2025 Discharge summary Author Linwood Ivy [facility] Note Date/Time February 19, 2025 3:4 0pm [facility] Medical Records Department [address] [place] [address] Emergency Department Summary 02/19/25 MR#: [id number] Acct: [id number] Name: LISA LUCERO Rep #:[id number] : 1955 69 From: Linwood Ivy DO PCP: Dr. Phuc Martines DO Status:AD IN [facility] [address] Linwood Ivy DO [...] not coughing up significant mount of phlegm. [facility] Medical History COPD (chronic obstructive pulmonary disease) [...] BID PRN dry 02/19/25 Unknown History aerosol (Lawndale Saline) nasal passages triamcinolone acetonide 0.5 % [...] follow commands and that she was at [facility] year is 2024 Skin: Warm, dry, [...] 80.0 H Lymph % (Auto) 9.8 L [place] % (Auto) 8.5 Eos % (Auto) 1.0 [...] Clarity Clear Urine pH 6.0 Ur Specific [place] 1.010 Urine Protein Negative Urine Glucose (UA) [...] [Daily Multi-Vitamin] Tablet 1 tab PO DAILY Lawndale Saline 0.65 % aerosol,spray 1 spray intranasal BID PRN (Reason: dry nasal passages) triamterene-hydrochlorothiazid 37.5-25 mg capsule 1 cap PO DAILY Patient Comments: PT TAKES IN AFTERNOON guaifenesin [Mucus Relief ER] 1,200 MG tablet 1,200 mg PO BID PRN (Reason: cough) Primary Care Provider: Phuc Martines Referrals: Phuc Martines DO [Primary Care Provider] - Print Language: Algerian Disposition Disposition: Acute Care Hospital [facility] What to do if you have Problems For any increased pain, shortness of breath, bleeding, nausea or vomiting, chestpain, or any unexpected problems, contact your Primary Care Provider. Call [facility] ([phone]) or report to the closest Emergency Room. Call 911 if necessary. 02/19/25 1504 <Electronically signed by Linwood Ivy DO> Cosigner Signature (if applicable): CC: Dr. Phuc Martines DO ~ Signed [facility] Work Phone: 1(216) 943-474204-25-2025 History and physical note [facility] Medical Records Department [address] [place] [address] H&P Exam - Hospitalist 02/19/25 1548 MR#: [id number] Acct: [id number] Name: LISA LUCERO Rep #:[id number] : 1955 69 From: Kym Norton MD PCP: Dr. Phuc Martines DO Status:AD M IN Location: [facility] [id number]- [id number] HPI - General General Date of Admission: 02/19/25 Date of Service: 02/19/25 Chief Complaint: Increase shortness of breath and lower extremity swelling HPI Narrative LISA LUCERO, is a 69-year-old female with a history of COPD on 3 L nasal cannula and hypertension who presented to [facility] ED 02/19/2025 with increased shortness of breath [...] does not noteany history of withdrawal symptoms. [facility] Medical History COPD (chronic obstructive pulmonary disease) [...] BID PRN dry 02/19/25 Unknown History aerosol (Lawndale Saline) nasal passages triamcinolone acetonide 0.5 % [...] 80.0 H, Lymph % (Auto) 9.8 L, [place] % (Auto) 8.5, Eos % (Auto) 1.0, [...] Clarity Clear, Urine pH 6.0, Ur Specific [place] 1.010, Urine Protein Negative, Urine Glucose (UA) [...] setting of COPD on 3 L home [id number] secondary to new onset heart failure -Patient [...] 78 Minutes Charges/Coding Visit Charges Inpatient E&M: 05844 Init Hosp L3 02/19/25 1613 Cosigner Signature (if applicable): CC: Dr. Phuc Martines DO; Dr. Kym Norton MD~ Signed [facility]04-25-2025 Discharge summary [facility] Medical Records Department [address] [place] [address] Emergency Department Summary 02/19/25 MR#: [id number] Acct: [id number] Name: LISA LUCERO Rep #:[id number] : 1955 69 From: Linwood Ivy DO PCP: Dr. Phuc Martines DO Status:AD IN Location: [place] [address] Linwood Ivy DO on [...] not coughing up significant mount of phlegm. [facility] Medical History COPD (chronic obstructive pulmonary disease) [...] BID PRN dry 02/19/25 Unknown History aerosol (Lawndale Saline) nasal passages triamcinolone acetonide 0.5 % [...] follow commands and that she was at [facility] year is 2024 Skin: Warm, dry, [...] 80.0 H Lymph % (Auto) 9.8 L [place] % (Auto) 8.5 Eos % (Auto) 1.0 [...] Clarity Clear Urine pH 6.0 Ur Specific [place] 1.010 Urine Protein Negative Urine Glucose (UA) [...] [Daily Multi-Vitamin] Tablet 1 tab PO DAILY Lawndale Saline 0.65 % aerosol,spray 1 spray intranasal BID PRN (Reason: dry nasal passages) triamterene-hydrochlorothiazid 37.5-25 mg capsule 1 cap PO DAILY Patient Comments: PT TAKES IN AFTERNOON guaifenesin [Mucus Relief ER] 1,200 MG tablet 1,200 mg PO BID PRN (Reason: cough) Primary Care Provider: Phuc Martines Referrals: Phuc Martines DO [Primary Care Provider] - Print Language: Algerian Disposition Disposition: Acute Care Hospital [facility] What to do if you have Problems For any increased pain, shortness of breath, bleeding, nausea or vomiting, chestpain, or any unexpected problems, contact your Primary Care Provider. Call [facility] ([phone]) or report tothe closest Emergency Room. Call 911 if necessary. 02/19/25 1504 Cosigner Signature (if applicable): CC: Dr. Phuc Martines DO ~ Signed [facility]04-25-2025 Radiology Diagnostic study note [facility] Imaging Services [address] [place] [address] Chest PA and Lateral MR#: [id number] Acct: [id number] Name: LISA LUCERO Rep #: [id number] : 1955 F 69 From: Vicki Mccabe MD PCP: Dr. Phuc Martines DO Status: RE G ER Study:Chest PA and Lateral Date of Exam: 02/19/25 Exam# [id number] Ordering Dr: Yonatan Ivy DO PROCEDURE: CHEST [...] Martines DO; Dr. Linwood Ivy DO ~ Soil Fertility Extension Specialist: Signed [facility]04-01-2025 Telephone encounter Note* Telephone Encounter - Maricruz Camp APRN.CNP - 01/26/2025 4:47 PM EDT Left message for patient to check Mychart message and call back if she wants to discuss this further. Category 3 LDCT due to residual RML opacity, likely inflammatory/iinfectious. Maricruz Camp APRN.CNP [facility]04-01-2025 Miscellaneous Notes* Telephone Encounter - Maricruz Camp APRN.CNP - 01/26/2025 4:47 PM EDT Left message for patient to check Mychart message and call back if she wants to discuss this further. Category 3 LDCT due to residual RML opacity, likely inflammatory/iinfectious. Maricruz Camp APRN.CNP [facility] Instructions* Patient Instructions* Maricruz Camp APRN.CNP - [...] curative intent treatment Lung Cancer Screening hotline: [phone] Specialist Providers: (Basia Guzman CNP; Josefina Ceron CNP; Jes Dewitt CNP; ELVIA Dixon; Lakia Ohara PA-C; Keely Castillo PA-C; Lisha Cruz CNP, Nadia Wilson CNP, Veronica Grover RAILWAY TRACK PLANT OPERATOR, Maricruz Camp CNP & Chiquis Rico PA-C): [phone] documented in [facility] History of Present illness Narrative* Jes Galaviz [...] PATIENT PRESENTS WITH AN IMPLANTABLE OR ATTACHED LABORER ORCHARD: No RADIOLOGY DEPARTMENT: CT; Exam(s) Completed: Lung Screening PERIPHERAL IV DATA: Not applicable SIGNED BY: RT Flower(R) January 25, 2025 1:52 PM documented in this encounterKettering Health [facility]ble03-31-2025 NoteHNO ID: [id number] Author: JES GALAVIZ RT(Tarun) Service: ? Author Type: Data Analyst Type: Progress Notes Filed: 01/25/2025 13:52 Note [...] PATIENT PRESENTS WITH AN IMPLANTABLE OR ATTACHED LABORER ORCHARD: No RADIOLOGY DEPARTMENT: CT; Exam(s) Completed: Lung Screening PERIPHERAL IV DATA: Not applicable SIGNED BY: RT Flower(R) January 25, 2025 1:52 [facility]03-31-2025 NoteHNO ID: [id number] Author: MARICRUZ CAMP APRN.RAILWAY TRACK PLANT OPERATOR Service: ? Author Type: Nurse Practitioner Type: [...] activities of daily living. Modified Medical Research [place] Dyspnea Scale (MMRC) On level ground I [...] disease) (HCC) 02/03/2010 Coronary artery disease No [place], CHF. No heart cath. Diverticulosis of colon [...] to 08/29/2022. Prior PFTS: SPIROMETRY BASELINE ONLY ([id number]) - ordered on 03/16/22 No textual results for order. SPIROMETRY BASELINE ONLY ([id number]) - ordered on 03/31/20 [facility] [address] [facility], [place] [address] Test Date: 2020-03-31 Pat Name: LISA LUCERO Department: Room: Gender: Female Data Analyst: JANKI Lee : 1955 Requested By: Ivan CHRISTINE Order Number: [id number] Reading MD: Joel Childs Interpretive Statements ATS/ERS acceptabil (more content not included)...[facility] 01-25-2025 History of Present illness Narrative* Maricruz Camp APRN.RAILWAY TRACK PLANT OPERATOR - 01/25/2025 10:22 AM EDT Chief Complaint: [...] activities of daily living. Modified Medical Research [place] Dyspnea Scale (MMRC) On level ground I [...] disease) (HCC) 02/03/2010 Coronary artery disease No [place], CHF. No heart cath. Diverticulosis of colon [...] to 08/29/2022. Prior PFTS: SPIROMETRY BASELINE ONLY ([id number]) - ordered on 03/16/22 No textual results for order. SPIROMETRY BASELINE ONLY ([id number]) - ordered on 03/31/20 [facility] [address] , [place] [address] Test Date: 2020-03-31 Pat Name: LISA LUCERO Department: Room: Gender: Female Data Analyst: JANKI Lee : 1955 Requested By: Ivan CHRISTINE Order Number: [id number] Reading MD: Joel Childs Interpretive Statements ATS/ERS [...] EDT by Joel Childs Site: WO ID: [id number] Name: LISA LUCERO Visit Date: 03/31/2020 Second ID: [id number] Referring Doctor: Ivan CHRISTINE Data Analyst: JANKI Lee Age: 64 : 1955 Sex: Female Race: <Other> Height: 64.50 Inches Weight: 255.80 Lbs BSA: 2.18 Order IDs: [id number] Requested Test(s): Spirometry baseline only Post Test [...] radiology report. Six year risk is 1.4% [employer]tt[employer]://[email or web address]_unknown 2. Nicotine Dependence, Former: Continue to abstain from smoking cigarettes. Maricruz Camp APRN.ELVIA January 25, 2025 10:22 AM documented in this encounterKettering Health [facility]ble03-26-2025 NoteHNO ID: [id number] Author: PHUC MARTINES, DO Service: ? Author Type: Physician Type: Progress Notes Filed: 01/20/2025 20:54 Note Text: CC: Lisa Lucero is a 69 year old female who presents to the office for follow up HPI: HTN, recently controlled, no further dizziness. No chest pain/pressure. Has chronic dyspnea. No new edema or SINHA's or syncope symptoms. 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 Feels she is coping okay. Has support from her children COPD oxygen dependent, stage 3., seeing Physician Office Assistant- recently had jaziel increased and feels this is helping her PAST MEDICAL HISTORY Diagnosis Date Chronic hypoxemic respiratory failure (HCC) COPD (chronic obstructive pulmonary disease) (HCC) 02/03/2010 Coronary artery disease No [place], CHF. No heart cath. Diverticulosis of colon [...] hours as needed for wheezing/shortness of breath. 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 Feels she is coping okay. Has support from her children COPD oxygen dependent, stage 3., seeing Physician Office Assistant- recently had jillianaleksander increased and feels this is helping her PAST MEDICAL HISTORY Diagnosis Date Chronic hypoxemic respiratory failure (HCC) COPD (chronic obstructive pulmonary disease) (HCC) 02/03/2010 Coronary artery disease No [place], CHF. No heart cath. Diverticulosis of colon [...] hours as needed for wheezing/shortness of breath. wsdmsguocdw-uxacewlko-fqutyqne (TRELEGY ELLIPTA) 200-62.5-25 mcg inhalation powder Inhale [...] - ICD9: 496, ICD10: J44.9 F/u with transition lead, is oxygen dependent 8. Essential hypertension - [...] See patient instructions. Phuc Martines DO [address] [place] [address] * Phuc Martines DO - 01/20/2025 8:48 [...] kg/(m^2) Phuc Martines DO documented in this encounterKettering Health [facility]ble03-26-2025 NoteHNO ID: [id number] Author: PHUC MARTINES DO Service: ? Author [...] of weight loss. BMI 45.32 kg/(m2) [facility] Inst[facility]* Patient Instructions* Lisa Goodman APRN.CNP - 12/25/2024 11:59 AM EST Increase the dose of Trelegy. Remember to rinse after you use. If there is any concern with cost, we can try splitting Trelegy into 2 different inhalers. Monitor your oxygen levels with activity especially. Our last testing shows you require 6 liter of oxygen with activity. documented in this encounterKettering Health [facility]ble02-28-2025 History of Present illness Narrative* Lisa Goodman APRN.CNP - 12/25/2024 11:30 AM EST Images from the original note were not included. Pulmonary Medicine Patients name: Lisa Palumbo PCP: Phuc Martines DO CC: follow-up COPD HPI: Lisa Lucero is a 69 year old female former 66-frdh-exqf smoker, quitting in 2008 with PMH significant [...] disease) (HCC) 02/03/2010 Coronary artery disease No [place], CHF. No heart cath. Diverticulosis of colon [...] ELLIPTA 100-62.5-25 mcg inhalation powder Generic drug: bjpmlrvqetn-ttyvinzjf-ggpmqlpl USE 1 INHALATION DAILY INSTRUCTED triamcinolone acetonide [...] prior chest CT examinations is needed. Reference: [employer]. Lung CT Screening Reporting and Data System (Lung-RADS). Available at: http://www.acr.org/Quality-Safety/Resources/LungRADS Soil Fertility Extension Specialist: PAT Transcribe Date/Time: Oct 19 2024 11:21A Dictated by : VIDAL PULLIAM MD This examination was interpreted and the report reviewed and electronically signed by: VIDAL PULLIAM MD on Oct 19 2024 11:28AM EST Results-Findings * * *Final Report* * * DATE OF EXAM: Oct 19 2024 10:09AM [facility] 0562 - CT LUNG SCREEN [facility] / PROCEDURE REASON: Former cigarette smoker * [...] without contrast. MQ: CTLCS_6 Patient characteristics: * Orai-ft-Rabdw: 1955; Age at exam: 69 years * Gender: Female * Lung Disease: Asymptomatic (no signs or symptoms of lung disease) * Number of Pack Years: 38 * Current smoker (=0) or Number of Years since Quit: 15 * Ordering provider and NPI: MARICRUZ CAMP [id number] * Interpreting radiologist and NPI: Nicole [id number] Exam acquisition parameters: * Exam Date: 10/19/2024 10:09 AM * Site: [facility] * * CT System Turbine Attendant: Siemens * CT System Model: Sensation * [...] needed. 2. Chronic respiratory failure with hypoxia ([facility]) - ICD9: 518.83, 799.02, ICD10: J96.11 [...] which included preparing to see the patient, odlh-tv-ltlu patient care, completing clinical documentation, performing a medically appropriate examination, counseling and educating the patient/family/caregiver, and ordering medications, tests,or procedures. documented in this encounterKettering Health [facility]ble02-28-2025 NoteHNO ID: [id number] Author: LISA GOODMANJAKI.RAILWAY TRACK PLANT OPERATOR Service: ? Author Type: Nurse Practitioner Type: Progress Notes Filed: 12/25/2024 12:29 Note Text: Pulmonary Medicine Patients name: Lisa Palumbo PCP: Phuc Martines DO CC: follow-up COPD HPI: Lisa Lucero is a 69 year old female former 55-xoec-bjpt smoker, quitting in 2008 with PMH significant [...] disease) (HCC) 02/03/2010 Coronary artery disease No [place], CHF. No heart cath. Diverticulosis of colon [...] ELLIPTA 100-62.5-25 mcg inhalation powder Generic drug: jiajzvhpahh-jtmpozube-osluwinl USE 1 INHALATION DAILY INSTRUCTED triamcinolone acetonide [...] prior chest CT examinations is needed. Reference: [employer]. Lung CT Screening Reporting and Data System (Lung-RADS). Available at: http://www.acr.org/Quality-Safety/Resources/LungRADS Soil Fertility Extension Specialist: PAT Transcribe Date/Time: Oct 19 2024 11:21A Dictated by : VIDAL PULLIAM MD This examination was interpreted and the report reviewed and electronically signed by: VIDAL PULLIAM MD on Oct 19 2024 11:28AM EST Results-Findings * * *Final Report* * * DATE OF EXAM: Oct 19 2024 10:09AM [facility] 0562 - CT LUNG SCREEN WO [...] upper abdomen without contrast. (more content not included)...[facility]02-06-2025 History of Present illness Narrative* Jt Cheney [...] PATIENT PRESENTS WITH AN IMPLANTABLE OR ATTACHED LABORER ORCHARD: No RADIOLOGY DEPARTMENT: Mammography PERIPHERAL IV DATA: Not applicable SIGNED BY: Padma Bess December 03, 2024 11:01 AM documented in this encounterKettering Health [facility]ble02-06-2025 NoteHNO ID: [id number] Author: JT CHENEY Mammo Tech Service: ? Author Type: Data Analyst Type: Progress Notes Filed: 12/03/2024 11:01 Note [...] PATIENT PRESENTS WITH AN IMPLANTABLE OR ATTACHED LABORER ORCHARD: No RADIOLOGY DEPARTMENT: Mammography PERIPHERAL IV DATA: Not applicable SIGNED BY: Jt Cheney Glycominds December 03, 2024 11:01 [facility]01-31-2025 Telephone encounter Note* Telephone Encounter - Essence [...] 01/20/2025 Requested Prescriptions Pending Prescriptions Disp Refills cxywocylgxm-cfebmwonr-jdyelmty (TRELEGY ELLIPTA) 100-62.5-25 mcg inhalation powder 3 Each 3 Sig: USE 1 INHALATION DAILY INSTRUCTED Essence Ortiz RN November 27, 2024 3:54 PM [facility]01-31-[facility] Miscellaneous Notes* Telephone Encounter - Essence Ortiz [...] 01/20/2025 Requested Prescriptions Pending Prescriptions Disp Refills jmutjllhkhr-vaoqlfrkr-lehagvcf (TRELEGY ELLIPTA) 100-62.5-25 mcg inhalation powder 3 Each 3 Sig: USE 1 INHALATION DAILY INSTRUCTED Essence Ortiz RN November 27, 2024 3:54 PM documented in this encounterKettering Health [facility]ble01-15-2025 NoteHNO ID: [id number] Author: JULIANNE DONALD MA Service: ? Author Type: Sports Photographer Type: Progress Notes Filed: 11/11/2024 15:47 Note [...] Follow-up Appointment [facility] LISA GOODMAN 6 MTH F/U COPD 01/25/[address]AN [facility] with CT [facility] (I-STAT) - LDCT [facility] MARICRUZ CAMP - LDCT 02/17/2025 in [facility] with PHUC MARTINES - FOLLOW UP HCC related Navigation Signature: Julianne Donald MA November 11, 2024 3:37 [facility]01-15-2025 History of Present illness Narrative* Julianne Donald [...] Follow-up Appointment Controlling Blood Pressure 12/25/2024 in [facility] with LISA GOODMAN - 6 MTH F/U COPD 01/25/[address] SCAN [facility] with CT [facility] (I-STAT) - LDCT 01/25/2025 in [facility] with MARICRUZ CAMP - LDCT 02/17/2025 in [facility] with PHUC MARTINES - FOLLOW UP HCC related Navigation Signature: Julianne Donald MA November 11, 2024 3:37 PM documented in this encounterKettering Health [facility]ble01-15-2025 NotePatient Outreach (NETNAV) LISA LUCERO ([id number]) 1955 F Date Time Provider Department 11/11/24 [...] Follow-up Appointment Controlling Blood Pressure 12/25/2024 in [facility] with LISA GOODMAN - 6 MTH F/U COPD 01/25/[address] SCAN [facility] with CT [facility] (I-STAT) - LDCT 01/[facility]/20[facility] MARICRUZ CAMP - LDCT 02/17/2025 in [facility] with PHUC MARTINES - FOLLOW UP HCC related Navigation Signature: Julianne Donald MA November 11, 2024 3:37 PM Allergies As of Date: 11/11/2024 Noted Allergy Reaction ALEVE (NAPROXEN) 05/31/2020 4 - Hives Comments: Hives, edema of hands within 1 hour of use Date Reviewed: 10/19/2024 Reviewed by: Maricruz Camp APRN.RAILWAY TRACK PLANT OPERATOR - Fully Assessed Reason for Visit: Population Health Navigation Outreach [3910] Cmt: ACO WORKBEP[employer]O MEEHAN PCSA Prescriptions as of 11/11/2024 - triamterene-hydroCHLOROthiazide (DYAZIDE) 37.5-25 mg per capsule Take 1 capsule by mouth once daily. - amLODIPine (NORVASC) 10 mg tablet Take 1 tablet by mouth once daily. - gmtztnmfjmc-drldhpbhl-njmgizaj (TRELEGY ELLIPTA) 100-62.5-25 mcg inhalation powder USE [...] 03/13/2024 Encounter Status:Closed by JULIANNE DONALD on 11/11/24[facility]01-09-2025 NoteHNO ID: [id number] Author: PATRICIA KEVIN HUC Service: ? Author Type: Zone Supervisor Firearms Type: Progress Notes Filed: 11/05/2024 14:22 Note Text: [facility] POP LUNG CANCER SCREENING FOLLOWUP ADVANCED: Diagnosis: Lung Nodule Recommendation: CT Scan Follow Up Due Date: 01/25/2025 All Follow Up Scheduled: Yes Pulmonary Follow Up Type: Lung Nodule Surveillance Patient should be added to the Lung Cancer Screening Followup Report: No Lung Cancer Screening Program Location: [facility] 11-05-2024 History of Present illness Narrative* Patricia Kevin HUC - 11/05/2024 2:22 PM EST [facility] POP LUNG CANCER SCREENING FOLLOWUP ADVANCED: Diagnosis: Lung Nodule Recommendation: CT Scan Follow Up Due Date: 01/25/2025 All Follow Up Scheduled: Yes Pulmonary Follow Up Type: Lung Nodule Surveillance Patient should be added to the Lung Cancer Screening Followup Report: No Lung Cancer Screening Program Location: [facility] documented in this encounterKet[facility]01-09-2025 NotePatient Outreach (PULMMN) LISA LUCERO ([id number]) 1955 F Date Time Provider Department 11/05/24 [...] Report: No Lung Cancer Screening Program Location: [facility] Allergies As of Date: 11/05/2024 Noted Allergy Reaction ALEVE (NAPROXEN) 05/31/2020 4 - Hives Comments: Hives, edema of hands within 1 hour of use Date Reviewed: 10/19/2024 Reviewed by: Maricruz Camp APRN.RAILWAY TRACK PLANT OPERATOR - Fully Assessed Prescriptions as of 11/05/2024 - triamterene-hydroCHLOROthiazide (DYAZIDE) 37.5-25 mg per capsule Take 1 capsule by mouth once daily. - amLODIPine (NORVASC) 10 mg tablet Take 1 tablet by mouth once daily. - ztruduyirwh-mnnasgfgl-nyzodlzv (TRELEGY ELLIPTA) 100-62.5-25 mcg inhalation powder USE [...] 03/13/2024 Encounter Status:Closed by PATRICIA KEVIN on 11/05/24[facility] 10-21-2024 NotePatient Outreach (INTMMN) LISA LUCERO ([id number]) 1955 F Date Time Provider Department 10/21/24 PHUC MARTINES INTMMN During your visit today, we recorded the following information about you: Allergies As of Date: 10/21/2024 Noted Allergy Reaction ALEVE (NAPROXEN) 05/31/2020 4 - Hives Comments: Hives, edema of hands within 1 hour of use Date Reviewed: 10/19/2024 Reviewed by: Maricruz Camp APRN.RAILWAY TRACK PLANT OPERATOR - Fully Assessed Visit Diagnosis:Encounter for screening mammogram for breast cancer [Z12.31] Order(s):[facility] SCREENING W ASHLEY [[id number]] Order #: [id number] FUTURE Prescriptions as of 10/26/2024 - triamterene-hydroCHLOROthiazide (DYAZIDE) 37.5-25 mg per capsule Take 1 capsule by mouth once daily. - amLODIPine (NORVASC) 10 mg tablet Take 1 tablet by mouth once daily. - sbzgfvuqffn-pcifezqrc-pisfxlcy (TRELEGY ELLIPTA) 100-62.5-25 mcg inhalation powder USE [...] ectasia (HCC) [I77.810] 03/13/2024 Encounter Status:Closed by Adaptive TCR On[employer] InternetTarun on 10/26/24[facility] 10-20-2024 NoteHNO ID: [id number] Author: MARICRUZ CAMP APRN.CNP Service: ? Author [...] Report: Yes Lung Cancer Screening Program Location: [facility] 10-20-2024 History of Present illness Narrative* Maricruz Camp APRN.CNP - 10/20/2024 9:25 AM EST [facility] POP LUNG CANCER SCREENING FOLLOWUP ADVANCED: Diagnosis: Lung Nodule Recommendation: CT Scan Follow Up Due Date: 01/18/2025 All Follow Up Scheduled: No Pulmonary Follow Up Type: Lung Nodule Surveillance Patient should be added to the Lung Cancer Screening Followup Report: Yes Lung Cancer Screening Program Location: [facility] documented in this encounterKettering Health [facility]ble12-23-2024 Instructions* Patient Instructions* Maricruz Camp APRN.CNP - 10/19/2024 2:51 PM EST There are new inflammatory opacities. Recommend follow up CT lung in 3 months. Maricruz Camp APRN.CNP documented in this encounterKettering Health Preble12-23-2024 NoteHNO ID: [id number] Author: MARICRUZ CAMP APRN.CNP Service: ? Author [...] which included preparing to see the patient, glrd-vk-yvxp patient care, completing clinical documentation, performing a medically appropriate examination, counseling and educating the patient/family/caregiver, ordering medications, tests, or procedures, communicating with other HCPs (not separately reported), independently interpreting results (not separately reported), communicating results to the patient/family/caregiver, and care coordination (not separately reported). Maricruz Camp APRN.[facility] October 19, 2024 10:28 AM History [...] albuterol if feeling sick. Modified Medical Research [place] Dyspnea Scale (MMRC) I am too breathless [...] disease) (HCC) 02/03/2010 Coronary artery disease No [place], CHF. No heart cath. Diverticulosis of colon (without mention of hemorrhag (more content not included)...[facility]12-23-2024 History of Present illness Narrative* Maricruz Camp APRN.RAILWAY TRACK PLANT OPERATOR - 10/19/2024 10:27 AM EST Images from [...] which included preparing to see the patient, izke-ss-adfx patient care, completing clinical documentation, performing a medically appropriate examination, counseling and educating the patient/family/caregiver, ordering medications, tests, or pr ocedures, communicating with other HCPs (not separately reported), independently interpreting results (not separately reported), communicating results to the patient/family/caregiver, and care coordination (not separately reported). Maricruz Camp APRN.[facility] October 19, 2024 10:28 AM History [...] albuterol if feeling sick. Modified Medical Research [place] Dyspnea Scale (MMRC) I am too breathless [...] disease) (HCC) 02/03/2010 Coronary artery disease No [place], CHF. No heart cath. Diverticulosis of colon [...] DATE OF EXAM: Oct 08 2023 1:24PM [facility] 0562 - CT LUNG SCREEN WO [...] without contrast. MQ: CTLCS_6 Patient characteristics: * Ffyd-dj-Jukto: 1955; Age at exam: 68 years * Gender: Female * Lung Disease: Asymptomatic (no signs or symptoms of lung disease) * Number of Pack Years: 38 * Current smoker (=0) or Number of Years since Quit: 14 * Ordering provider and NPI: MARICRUZ CAMP [id number] * Interpreting radiologist and NPI: Nicole [id number] Exam acquisition parameters: * Exam Date: 10/08/2023 1:24 PM * Site: [facility] * * CT System Turbine Attendant: AGLOGIC * CT System Model: Sensation * Tube [...] CT Chest - Impression Only CT CHEST [facility] Exam End: 08/29/2022 10:32 AM (Final result) [...] ... Pulmonary Function Testing: SPIROMETRY BASELINE ONLY ([id number]) - ordered on 03/16/22 No textual results for order. documented in this encounterKettering Health [facility]ble12-23-2024 History of Present illness Narrative* Jes Galaviz [...] PATIENT PRESENTS WITH AN IMPLANTABLE OR ATTACHED LABORER ORCHARD: No RADIOLOGY DEPARTMENT: CT; Exam(s) Completed: Lung Screening PERIPHERAL IV DATA: Not applicable SIGNED BY: RT Flower(R) October 19, 2024 12:24 PM documented in this encounterKettering Health [facility]ble12-23-2024 NoteHNO ID: [id number] Author: JES GALAVIZ RT(R) Service: ? Author Type: Data Analyst Type: Progress Notes Filed: 10/19/2024 12:24 Note [...] PATIENT PRESENTS WITH AN IMPLANTABLE OR ATTACHED LABORER ORCHARD: No RADIOLOGY DEPARTMENT: CT; Exam(s) Completed: Lung Screening PERIPHERAL IV DATA: Not applicable SIGNED BY: RT Flower(R) October 19, 2024 12:24 [facility]09-20-2024 Telephone encounter Note* Telephone Encounter - Vero Lcokett LPN - 07/17/2024 2:19 PM EDT Prescription [...] Lockett LPN July 17, 2024 2:19 PM [facility]09-20-[facility] Miscellaneous Notes* Telephone Encounter - Vero Lockett [...] 17, 2024 2:19 PM documented in this encounterKettering Health [facility]ble08-30-2024 History of Present illness Narrative* Diana Gonzalez MD - 06/26/2024 11:45 AM EDT Images from the original note were not included. . Respiratory [facility] Note Patient name: Lisa Lucero PCP: Phuc Martines DO CC: Follow-up COPD HPI: Lisa Lucero 68 year old female former 82-vmvl-mjdz smoker, quitting in 2008 with PMH significant [...] DATE OF EXAM: Oct 08 2023 1:24PM [facility] 0562 - CT LUNG SCREEN WO [...] (HCC) 02/03/2010: COPD (chronic obstructive pulmonary disease) ([facility]) No date: Coronary artery disease Comment: No [place], CHF. No heart cath. No date: Diverticulosis [...] Take 1 tablet by mouth once daily. tcdixuqmkxw-lilpojnkz-xttlnnor (TRELEGY ELLIPTA) 100-62.5-25 mcg inhalation powder USE [...] mode ambulation 3. Former cigarette smoker -Former 16-pfnc-oyag smoker with sequelae of emphysema -Continued abstinence -Participating in lung cancer screening program with CT due this September 4. Morbid obesity -BMI 43 -Weight loss advised 5. Lung nodule -Right upper lobe nodule stable since 2017 -No further surveillance imaging required Diana Gonzalez MD [facility] documented in this encounterKettering Health [facility]ble08-30-2024 NoteHNO ID: [id number] Author: DIANA GONZALEZ MD Service: ? Author Type: Physician Type: Progress Notes Filed: 06/26/2024 14:11 Note Text: . Respiratory Gilbert Note Patient name: Lisa Lucero PCP: Phuc Martines DO CC: Follow-up COPD HPI: Lisa Lucero 68 year old female former 85-wcsg-dise smoker, quitting in 2008 with PMH significant [...] DATE OF EXAM: Oct 08 2023 1:24PM [facility] 0562 - CT LUNG SCREEN WO [...] No date: Coronary artery disease Comment: No [place], CHF. No heart cath. No date: Diverticulosis [...] Take 1 tablet by mouth once daily. klcaxdvhnqj-bwlsxlwei-yhkfrfjw (TRELEGY ELLIPTA) 100-62.5-25 mcg inhalation powder USE [...] nightsweats, unintended weight los (more content not included)...[facility]06-30-2024 NoteHNO ID: [id number] Author: DAMON EUGENE APRN.[facility] Service: ? Author Type: Nurse Practitioner Type: Progress Notes Filed: 04/26/2024 11:15 Note Text: Subjective Patient came in with complaints of possible wound infection on the right calf. Patient says she fell 2 weeks ago. Patient says she has been treating at home with antibiotic ointment. Patient denies any fever chills nausea vomiting. The history is provided by the patient. No sign language translator was used. Review of Systems Constitutional: Negative. [...] disease) (HCC) 02/03/2010 Coronary artery disease No [place], CHF. No heart cath. Diverticulosis of colon [...] Take 1 tablet by mouth once daily. dcktbspqkud-icnkjaxcg-ywsogqis (TRELEGY ELLIPTA) 100-62.5-25 mcg inhalation powder USE [...] okay with this care plan. Damon Eugene APRN.[facility]06-30-2024 History of Present illness Narrative* Damon Eugene APRN.[facility] - 04/26/2024 11:12 AM EDT Images from the original note were not included. Subjective Patient came in with complaints of possible wound infection on the right calf. Patient says she fell 2 weeks ago. Patient says she has been treating at home with antibiotic ointment. Patient denies any fever chills nausea vomiting. The history is provided by the patient. No sign language translator was used. Review of Systems Constitutional: Negative. [...] disease) (HCC) 02/03/2010 Coronary artery disease No [place], CHF. No heart cath. Diverticulosis of colon [...] Take 1 tablet by mouth once daily. ylykfdnohxs-rbmnpujtm-ksutdhdo (TRELEGY ELLIPTA) 100-62.5-25 mcg inhalation powder USE [...] careplan. Damon Eugene APRN.[facility] documented in this encounterK[facility]24 Telephone encounter Note * Telephone Encounter - Erica Mckenzie LPN - 04/01/2024 9:51 AM EDT Pt. informed. [facility]-05-[facility] Miscellaneous Notes* Telephone Encounter - Erica Foote [...] Gabriel. Aileen Mcdonnell RN documented in this encounterKettering Health [facility]06-05-2024 Telephone encounter Note * Telephone Encounter - Phuc Martines DO - 04/01/2024 8:58 AM EDT Okay to wait on chest xray if symptoms continue to improve. If start to worsen again, then need forCXR rx for Diflucan sent in for her for vagina and thrush symptoms Phuc Martines DO [facility]06-03-[facility] Telephone encounter Note* Telephone Encounter - Aileen [...] is asking for recommendation. If script sent, [facility] Gabriel. Aileen Mcdonnell RN [facility]05-17-2024 History of Present illness Narrative* Phuc Martines, [...] disease) (HCC) 02/03/2010 Coronary artery disease No [place], CHF. No heart cath. Diverticulosis of colon [...] Take 1 tablet by mouth once daily. cwpyqhqktqo-pgzkoaeja-szxwioie (TRELEGY ELLIPTA) 100-62.5-25 mcg inhalation powder USE [...] bronchitis with chronic obstructive pulmonary disease (COPD) ([facility]) ([facility]) - ICD9: 491.22, ICD10: J44.0, J20.9 (primary diagnosis) Start on rx as below Continue inhalers and IS use F/u with CXR if not improving as well as with transition lead - DOXYCYCLINE HYCLATE 100 MG TABLET - AMOXICILLIN 875 MG-POTASSIUM CLAVULANATE 125 MG TABLET - PREDNISONE 10 MG TABLET - XR CHEST 2V FRONTAL/LAT 2. Chronic obstructive pulmonary disease, unspecified COPD type ([facility]) - ICD9: 496, ICD10: J44.9 Start on rx as below Continue inhalers and IS use F/u with CXR if not improving as well as with transition lead - DOXYCYCLINE HYCLATE 100 MG TABLET - AMOXICILLIN 875 MG-POTASSIUM CLAVULANATE 125 MG TABLET - PREDNISONE 10 MG TABLET - XR CHEST 2V FRONTAL/LAT 3. Acute otitis media, left - ICD9: 382.9, ICD10: H66.92 Start on rx as below Continue inhalers and IS use F/u with CXR if not improving as well as with transition lead - AMOXICILLIN 875 MG-POTASSIUM CLAVULANATE 125 MG [...] Stage 3 severe COPD by GOLD classification ([facility]) - ICD9: 496, ICD10: J44.9 See above 9. Fatigue, unspecified type - ICD9: 780.79, ICD10: R53.83 See above, Chronic, multifactorial 10. Oxygen dependent - ICD9: V46.2, ICD10: Z99.81 See above 11. Morbid obesity with BMI of 45.0-49.9, adult ([facility]) - ICD9: 278.01, V85.42, ICD10: E66.01, [...] See patient instructions. Phuc Martines DO [address] [place] [address] documented in this encounterKettering Health [facility]04-17-2024 Miscellaneous Notes* Telephone Encounter - Yuli Denton [...] you. Yuli Denton MA. documented in this encounterKettering Health [facility]ble04-03-2024 Instructions* Patient Instructions* Srikanth Estrada APRN.CNP - [...] 2 % TOPICAL OINTMENT documented in this encounterKettering Health [facility]ble04-03-2024 History of Present illness Narrative* Srikanth Estrada [...] disease) (HCC) 02/03/2010 Coronary artery disease No [place], CHF. No heart cath. Diverticulosis of colon [...] BONY WISDOM TEETH ALLERGIES Aleve [Naproxen] MEDICATIONS yjhsirwzttp-ytotooiad-rtueoccs (TRELEGY ELLIPTA) 100-62.5-25 mcg inhalation powder USE [...] MUPIROCIN 2 % TOPICAL OINTMENT Srikanth Estrada APRN.[employer] TR[employer] PLANT OPERATOR documented in this encounterKettering Health [facility]ble02-29-2024 History of Present illness Narrative* Diana Gonzalez MD - 12/26/2023 11:45 AM EST Images from the original note were not included. . [facility] Note Patient name: Lisa Lucero PCP: Phuc [...] k/uL 1.10 Monocytes % % 8.2 Abs [place] <0.87 k/uL 0.61 Eosinophils % % 2.3 Abs Eosin <0.46 k/uL 0.17 Basophils % % 0.8 Abs Baso <0.11 k/uL 0.06 Immature Granulocytes % % 0.5 Abs Immature Gran <0.10 k/uL 0.04 NRBC /100 WBC 0.0 Absolute nRBC <0.01 k/uL <0.01 Diff Type Auto Imaging / Diagnostic Studies: DATE OF EXAM: Oct 08 2023 1:24PM [facility] 0562 - CT LUNG SCREEN WO [...] disease) (HCC) 02/03/2010 Coronary artery disease No [place], CHF. No heart cath. Diverticulosis of colon (without mention of hemorrhage) Essential hypertension, benign Fibrocystic breast Former smoker Internal hemorrhoids without mention of complication Leiomyoma of uterus, unspecified Obstructive sleep apnea Mild. Not prescribed CPAP, only 2L nasal O2. ALLERGIES Allergen Reactions Aleve [Naproxen] Hives Hives, edema of hands within 1 hour of use gmxiouuuily-ibkhrhkpj-ldskqjem (TRELEGY ELLIPTA) 100-62.5-25 mcg inhalation powder USE [...] yearly low-dose chest CT in September Diana Gonzalze MD [facility] documented in this encounterKettering Health [facility]02-27-2024 Miscellaneous Notes* Telephone Encounter - Basia Victor [...] 24, 2023 9:56 AM documented in this encounterKettering Health [facility]ble12-12-2023 History of Present illness Narrative* Reef Jes Lepe, RT(R) - 10/08/2023 1:00 PM EST Radiology Service Progress Note PATIENT NAME: Lisa Lucero DATE OF SERVICE: October 08, 2023 [...] 08, 2023 2:12 PM documented in this encounterKettering Health [facility]ble11-21-2023 History of Present illness Narrative* Baltazar Mosqueda [...] 17, 2023 9:26 AM documented in this encounterKettering Health [facility]ble10-20-2023 Miscellaneous Notes* Telephone Encounter - Aissatou Whelan [...] diet. Phuc Martines DO documented in this encounterKettering Health [facility]ble10-18-2023 History of Present illness Narrative* Phuc Martines [...] was in Aug 2022 and is seeing Physician Office Assistant and using her oxygen, appt with Dr. [...] disease) (HCC) 02/03/2010 Coronary artery disease No [place], CHF. No heart cath. Diverticulosis of colon [...] daily. Inhale via nebulizer over 5-15 minutes. oqzrcjtismk-ktrggyobv-vfssdkdz (TRELEGY ELLIPTA) 100-62.5-25 mcg inhalation powder USE [...] plan. See patient instructions. Phuc Martines DO [address] [place] [address] documented in this encounterKettering Health [facility]ble10-02-2023 Miscellaneous Notes* Telephone Encounter - Amanda Pearson LPN - 07/29/2023 11:18 AM EDT ABRAHAM-- NOV--08/14/23 LAST REFILL--08/01/22 90 AND 3 REFILLS LAST LABS--07/30/22 documented in this encounterKettering Health [facility]ble08-17-2023 Procedure note* Janki Ayala RPFT - 06/13/2023 [...] TIME: 1:02 PM Comment: documented in this encounterKettering Health Preble08-17-2023 History of Present illness Narrative* Hodan Christine PA-C - 06/13/2023 1:00 PM EDT Images from the original note were not included. Patient: Lisa Lucero PCP: Phuc Martines DO CC: follow up HPI: Lisa Lucero 67 year old morbidly obese female former [id number] smoker, quitting 1970with PMH significant for COPD, [...] disease) (HCC) 02/03/2010 Coronary artery disease No [place], CHF. No heart cath. Diverticulosis of colon [...] daily. Inhale via nebulizer over 5-15 minutes. visnjdbpxqm-qzvhexrok-zjfijwfx (TRELEGY ELLIPTA) 100-62.5-25 mcg inhalation powder USE [...] cm in diameter. This has fluid attenuation. Sports Book Writer (topogram) images: No additional findings. ASSESSMENT/PLAN: 1. [...] necessary. Hodan Christine PA-C documented in this encounterKettering Health [facility]ble08-17-2023 History of Present illness Narrative* Janki Ayala RPFT - 06/13/2023 12:58 PM EDT PULM FUNCTION SMARTBLOCK: Provider: Hodan Christine PA-C Assisting Tech: Janki Ayala RPFT Oximetry - Ambulation: 1 documented in this encounterKettering Health [facility]ble08-17-2023 Nurse Note* Isi Osorio LPN - 06/13/2023 12:53 PM EDT Intake information documented in the prior visit with YOAV López today. documented in this encounterKettering Health [facility]ble08-03-2023 Miscellaneous Notes* Telephone Encounter - Lory Chavis [...] with Dr. Gonzalez or Sara sent to [facility] for O2 recert. Isi Osorio LPN * [...] review and advise. Thank you. [place] # [phone] Patrizia Jolly LPN documented in this encounterKettering Health [facility]ble02-07-2023 Miscellaneous Notes* Telephone Encounter - Claudia Ennis [...] daily. Inhale via nebulizer over 5-15 minutes. sriotmdjxop-gttorfwnx-wbgqndxz (TRELEGY ELLIPTA) 100-62.5-25 mcg inhalation powder 3 Each 3 Sig: USE 1 INHALATION DAILY INSTRUCTED RX INSTRUCTIONS: Patient aware RX will be sent to pharmacy. No need to notify patient. Gwendolyn Melendez Pss documented in this encounterKettering Health [facility]12-28-2022 Miscellaneous Notes* Telephone Encounter - Yuli Britton [...] fax Yuli Britton Ma documented in this encounterKettering Health [facility]ble12-14-2022 Procedure note* YOAV López - 10/10/2022 11:15 [...] TIME: 11:15 AM Comment: documented in this encounterKettering Health [facility]ble12-14-2022 History of Present illness Narrative* YOAV López - 10/10/2022 10:58 AM EST PULM FUNCTION SMARTBLOCK: Provider: Phuc Martines DO Assisting Tech: YOAV López Oximetry - Ambulation: 1 documented in this encounterKettering Health [facility]12-02-2022 History of Present illness Narrative* Vonnie Smith [...] 28, 2022 1:09 PM documented in this encounterKettering Health [facility]12-02-2022 Instructions* Patient Instructions* Pratibha King APRN.CNP - [...] or things are worsening. documented in this encounterKettering Health [facility]ble12-02-2022 History of Present illness Narrative* Pratibha King [...] Diagnosis Date COPD (chronic obstructive pulmonary disease) ([facility]) 02/03/2010 Coronary artery disease No [place], CHF. No heart cath. Diverticulosis of colon [...] hours as needed for wheezing/shortness of breath. bigmdxkjwvg-tczrwrbjw-czdneqfi (TRELEGY ELLIPTA) 100-62.5-25 mcg inhalation powder USE [...] TABLET, EXTENDED RELEASE 12 HR Pratibha King APRN.[employer] PLANT OPERATOR documented in this encounterKettering Health [facility]ble11-28-2022 Miscellaneous Notes* Telephone Encounter - Phuc Martines DO - 09/24/2022 7:24 AM EST Paperwork states she needs to have ambulatory oxygen testing within 30 days. Please help her set upthese tests at [place] Phuc Martines DO * Telephone Encounter - Erica Mckenzie LPN - 09/14/2022 3:45 PM EST Information on your desk.. * Telephone Encounter - Phuc Martines DO - 09/12/2022 10:21 PM EST I don't have any of this information on my desk Phuc Martines DO * Telephone Encounter - Christy Galicia LPN - 09/12/2022 3:54 PM EST Malika from [facility] called regarding O2 orders. Malika is faxing another form with instructions that explains what is needed for pt to get O2 covered. The exertion testing with ambulation from February is too old, testing needs to be done within 30 days. Please watch for faxed form. Christy Galicia LPN documented in this encounterKettering Health [facility]ble11-16-2022 Miscellaneous Notes* Letter - Mammography Coordinator - 09/12/2022 2:01 PM EST September 12, 2022 PID: [id number] Lisa Lucero [address] [place] [address] Dear Ms. Lucero, We are pleased to inform you that [...] report will [facility] medical record and are available for your continuing care. Thank you for allowing us to help in meeting your health care needs. Sincerely, Dr. Jameson Interpreting Radiologist [facility] (Normal over 40) documented in this encounterKettering Health [facility]ble11-10-2022 Miscellaneous Notes* Telephone Encounter - Basia Victor RN - 09/06/2022 7:53 PM EST Pt [...] testing. Pratibha King APRN.CNP documented in this encounterKettering Health [facility]ble11-07-2022 History of Present illness Narrative* Bella Rubalcava [...] 03, 2022 1:41 PM documented in this encounterKettering Health [facility]ble11-04-2022 Miscellaneous Notes* Telephone Encounter - Kizzy Castellanos RN - 08/31/2022 8:09 AM EDT Patient calls and notified of results and providers instructions. Patient verbalizes understanding.Patient transferred to schedule US of abd spleen. Kizzy Castellanos RN * Telephone Encounter - Yuli Britton Ma - 08/30/2022 2:06 PM EDT Attempted [...] appointment. Pratibha King APRN.CNP documented in this encounterKettering Health [facility]ble11-02-2022 History of Present illness Narrative* Jes Galaviz [...] 29, 2022 3:39 PM documented in this encounterKettering Health [facility]ble10-07-2022 Miscellaneous Notes* Telephone Encounter - Betina Gallardo Ma - 08/03/2022 9:38 AM EDT Office faxed for medicare requirement yearly most recent OV note from 08/01/22 to [facility]. F#: [phone]. Betina Gallardo Ma documented in this encounterKettering Health [facility]ble10-05-2022 History of Present illness Narrative* Phuc Martines, [...] was >15 months ago and is seeing Physician Office Assistant and using her oxygen, will be needing [...] 5.5 4.3 - 5.6 % Final Comment: [place] [employer] guidelines indicate that patients with HgbA1c in the range 5.7-6.4% are at increased risk for development of diabetes, and intervention by lifestyle modification may be beneficial. HgbA1c greater or equal to 6.5% is considered diagnostic of diabetes. 01/26/2022 6.1 (H) 4.3 - 5.6 % Final Comment: [place] [employer] guidelines indicate that patients with HgbA1c in the range 5.7-6.4% are at increased risk for development of diabetes, and intervention by lifestyle modification may be beneficial. HgbA1c greater or equal to 6.5% is considered diagnostic of diabetes. 04/28/2021 5.6 4.3 - 5.6 % Final Comment: [place] [employer] guidelines indicate that patients with HgbA1c in the range 5.7-6.4% are at increased risk for development of diabetes, and intervention by lifestyle modification may be beneficial. HgbA1c greater or equal to 6.5% is considered diagnostic of diabetes. 05/30/2020 5.6 4.3 - 5.6 % Final Comment: [place] [employer] guidelines indicate that patients with HgbA1c in the range 5.7-6.4% are at increased risk for development of diabetes, and intervention by lifestyle modification may be beneficial. HgbA1c greater or equal to 6.5% is considered diagnostic of diabetes. 05/15/2019 5.7 (H) 4.3 - 5.6 % Final Comment: [place] [employer] guidelines indicate that patients with [...] disease) (HCC) 02/03/2010 Coronary artery disease No [place], CHF. No heart cath. Diverticulosis of colon [...] hours as needed for wheezing/shortness of breath. gpbbbqexmsl-ckagejrgt-ljkvmynn (TRELEGY ELLIPTA) 100-62.5-25 mcg inhalation powder USE [...] oximetry testing as ordered, follow up with transition lead as well. Needs to continue oxygen at [...] See patient instructions. Phuc Martines DO [address] [place] [address] documented in this encounterKettering Health [facility]ble10-05-2022 Instructions* Patient Instructions* Phuc Martines DO - 08/01/2022 11:00 AM EDT Vitamin B12 1,000 mcg a day in the morning supplement documented in this encounterKettering Health [facility]ble09-08-2022 Miscellaneous Notes* Telephone Encounter - Isi Osorio LPN - 07/05/2022 8:45 AM EDT Order faxed. Isi Osorio LPN * Telephone Encounter - Isi Osorio LPN - 07/04/2022 2:21 PM EDT [facility] is requesting order for POC that goes to 6L as discussed at [facility] on 06/22. Patient has transitioned to Medicare as of 06/28. Isi Osorio LPN documented in this encounterKettering Health [facility]ble06-02-2022 Miscellaneous Notes* Telephone Encounter - Isi Osorio LPN - 03/29/2022 3:00 PM EDT [facility] called, they did receive order and it is in the que to schedule. Isi Osorio LPN documented in this encounterKettering Health [facility]ble05-20-2022 Procedure note* Janki Ayala RRT - 03/16/2022 [...] TIME: 9:40 AM Comment: documented in this encounterKettering Health [facility]ble05-20-2022 History of Present illness Narrative* Janki Ayala RRT - 03/16/2022 9:33 AM EDT PULM FUNCTION SMARTBLOCK: Provider: Hodan Christine PA-C Assisting Tech: Janki Ayala RRT Spirometry: 1 Oximetry - Ambulation: 1 System: [id number] documented in this encounterKettering Health [facility]ble05-20-2022 History of Present illness Narrative* Hodan Christine PA-C - 03/16/2022 9:24 AM EDT [facility], 03/16/2022: Name: Lisa Lucero : 1955 The [...] edema, orthopnea. GI: No heartburn, dysphagia, diarrhea. Uro/RESEARCH TECH: No dysuria, hesitancy, nocturia. Musculoskeletal: No pain. [...] answers. Hodan Christine PA-C documented in this encounterKettering Health [facility]ble05-20-2022 Nurse Note* Isi Osorio LPN - 03/16/2022 9:06 AM EDT Intake information documented in the prior visit with Janki Ayala RRT today. documented in this encounterKettering Health [facility]ble05-11-2022 Miscellaneous Notes* Telephone Encounter - Karla Jacbo LPN - 03/07/2022 11:36 AM EDT Patient phones requesting refills as follows: Pending Prescriptions Disp Refills AMLODIPINE 5 MG TABLET 90 tablet 1 Sig: Take 1 tablet by mouth once daily. LALY: No ABRAHAM-10/31/21 Labs-01/26/22 NOV-05/01/22 med filled 11/07/21 Please review and advise. Karla Jacob LPN documented in this encounterKettering Health [facility]ble04-15-2022 History of Present illness Narrative* Hodan Christine PA-C - 02/09/2022 1:00 PM EDT [facility], 02/09/2022: Name: Lisa Lucero : 1955 The [...] answers. Hodan Christine PA-C documented in this encounterKettering Health [facility]ble04-05-2022 History of Present illness Narrative* Phuc Martines, [...] disease) (HCC) 02/03/2010 Coronary artery disease No [place], CHF. No heart cath. Diverticulosis of colon [...] WISDOM TEETH Current Outpatient Medications Medication Sig lljdtpzphnj-rupzsbvbe-wbeicfvw (TRELEGY ELLIPTA) 100-62.5-25 mcg inhalation powder USE [...] plan. See patient instructions. Phuc Martines DO [address] [place] [address] documented in this encounterKettering Health [facility]ble03-16-2021 History of Present illness Narrative* Vonnie Smith [...] 10, 2021 11:09 AM documented in this encounterKettering Health [facility]ble07-23-2019 History of Past illness Narrative* Problem Noted Date Resolved Date Routine physical examination 05/19/2019 Screening for colon cancer 08/27/201810/13 Overview: Added automatically from request for surgery [id number] Acute bronchitis with chroni c obstructive pulmonary [...] of this encounter (statuses as of 01/30/2022) [facility] of Past illness Narrative* Problem Noted Date Resolved Date Routine physical examination 05/19/2019 Screening for colon cancer 08/27/201810/13 Overview: Added automatically from request for surgery [id number] Acute bronchitis with chroni c obstructive pulmonary [...] of this encounter (statuses as of 02/09/2022) [facility] of Past illness Narrative* Problem Noted Date Resolved Date Routine physical examination 05/19/2019 Screening for colon cancer 08/27/201810/13 Overview: Added automatically from request for surgery [id number] Acute bronchitis with chroni c obstructive pulmonary [...] of this encounter (statuses as of 03/07/2022) [facility] of Past illness Narrative* Problem Noted Date Resolved Date Routine physical examination 05/19/2019 Screening for colon cancer 08/27/201810/13 Overview: Added automatically from request for surgery [id number] Acute bronchitis with chroni c obstructive pulmonary [...] of this encounter (statuses as of 03/16/2022) [facility] of Past illness Narrative* Problem Noted Date Resolved Date Routine physical examination 05/19/2019 Screening for colon cancer 08/27/201810/13 Overview: Added automatically from request for surgery [id number] Acute bronchitis with chroni c obstructive pulmonary [...] of this encounter (statuses as of 03/16/2022) [facility] of [facility] illness Narrative* Problem Noted Date Resolved Date Routine physical examination 05/19/2019 Screening for colon cancer 08/27/201810/13 Overview: Added automatically from request for surgery [id number] Acute bronchitis with chroni c obstructive pulmonary [...] of this encounter (statuses as of 03/29/2022) [facility] of [facility] illness Narrative* Problem Noted Date Resolved Date Routine physical examination 05/19/2019 Screening for colon cancer 08/27/201810/13 Overview: Added automatically from request for surgery [id number] Acute bronchitis with chroni c obstructive pulmonary [...] of this encounter (statuses as of 07/04/2022) [facility] illness Narrative* Problem Noted Date Resolved Date Routine physical examination 05/19/2019 Screening for colon cancer 08/27/201810/13 Overview: Added automatically from request for surgery [id number] Acute bronchitis with chroni c obstructive pulmonary [...] of this encounter (statuses as of 07/05/2022) [facility] Narrative* Problem Noted Date Resolved Date Routine physical examination 05/19/2019 Screening for colon cancer 08/27/201810/13 Overview: Added automatically from request for surgery [id number] Acute bronchitis with chroni c obstructive pulmonary [...] of this encounter (statuses as of 08/01/2022) [facility] Narrative* Problem Noted Date Resolved Date Routine physical examination 05/19/2019 Screening for colon cancer 08/27/201810/13 Overview: Added automatically from request for surgery [id number] Acute bronchitis with chroni c obstructive pulmonary [...] of this encounter (statuses as of 08/03/2022) [facility] of [facility] illness Narrative* Problem Noted Date Resolved Date Routine physical examination 05/19/2019 Screening for colon cancer 08/27/201810/13 Overview: Added automatically from request for surgery [id number] Acute bronchitis with chroni c obstructive pulmonary [...] of this encounter (statuses as of 08/31/2022) [facility] Narrative* Problem Noted Date Resolved Date Routine physical examination 05/19/2019 Screening for colon cancer 08/27/201810/13 Overview: Added automatically from request for surgery [id number] Acute bronchitis with chroni c obstructive pulmonary [...] of this encounter (statuses as of 09/10/2022) [facility] Narrative* Problem Noted Date Resolved Date Routine physical examination 05/19/2019 Screening for colon cancer 08/27/201810/13 Overview: Added automatically from request for surgery [id number] Acute bronchitis with chroni c obstructive pulmonary [...] of this encounter (statuses as of 09/14/2022) [facility] Narrative* Problem Noted Date Resolved Date Routine physical examination 05/19/2019 Screening for colon cancer 08/27/201810/13 Overview: Added automatically from request for surgery [id number] Acute bronchitis with chroni c obstructive pulmonary [...] of this encounter (statuses as of 09/28/2022) [facility] Narrative* Problem Noted Date Resolved Date Routine physical examination 05/19/2019 Screening for colon cancer 08/27/201810/13 Overview: Added automatically from request for surgery [id number] Acute bronchitis with chroni c obstructive pulmonary [...] of this encounter (statuses as of 10/10/2022) [facility] History of Past illness Narrative* Problem Noted Date Resolved Date Routine physical examination 05/19/2019 Screening for colon cancer 08/27/201810/13 Overview: Added automatically from request for surgery [id number] Acute bronchitis with chroni c obstructive pulmonary [...] of this encounter (statuses as of 10/19/2022) [facility]2019 History of Past illness Narrative* Problem Noted Date Resolved Date Routine physical examination 05/19/2019 Screening for colon cancer 08/27/201810/13 Overview: Added automatically from request for surgery [id number] Acute bronchitis with chroni c obstructive pulmonary [...] of this encounter (statuses as of 10/30/2022) [facility]2019 History of Past illness Narrative* Problem Noted Date Resolved Date Routine physical examination 05/19/2019 Screening for colon cancer 08/27/201810/13 Overview: Added automatically from request for surgery [id number] Acute bronchitis with chroni c obstructive pulmonary [...] of this encounter (statuses as of 12/05/2022) [facility]2019 History of Past illness Narrative* Problem Noted Date Diagnosed Date Resolved Date Routine physical examination 05/19/2019 10/13/2019 Screening for colon cancer 08/27/2018 1 12/14/2018 Overview: Added automatically from request for surgery [id number] Acute bronchitis with chroni c obstructive pulmonary [...] of this encounter (statuses as of 05/30/2023) [facility]2019 History of Past illness Narrative* Problem Noted Date Diagnosed Date Resolved Date Routine physical examination 05/19/2019 10/13/2019 Screening for colon cancer 08/27/2018 1 12/14/2018 Overview: Added automatically from request for surgery [id number] Acute bronchitis with chroni c obstructive pulmonary [...] of this encounter (statuses as of 06/13/2023) [facility] History of Past illness Narrative* Problem Noted Date Diagnosed Date Resolved Date Routine physical examination 05/19/2019 10/13/2019 Screening for colon cancer 08/27/2018 1 12/14/2018 Overview: Added automatically from request for surgery [id number] Acute bronchitis with chroni c obstructive pulmonary [...] of this encounter (statuses as of 06/13/2023) [facility] History of Past illness Narrative* Problem Noted Date Diagnosed Date Resolved Date Routine physical examination 05/19/2019 10/13/2019 Screening for colon cancer 08/27/2018 1 12/14/2018 Overview: Added automatically from request for surgery [id number] Acute bronchitis with chroni c obstructive pulmonary [...] of this encounter (statuses as of 07/30/2023) [facility] History of Past illness Narrative* Problem Noted Date Diagnosed Date Resolved Date Routine physical examination 05/19/2019 10/13/2019 Screening for colon cancer 08/27/2018 1 12/14/2018 Overview: Added automatically from request for surgery [id number] Acute bronchitis with chroni c obstructive pulmonary [...] of this encounter (statuses as of 08/14/2023) [facility] History of Past illness Narrative* Problem Noted Date Diagnosed Date Resolved Date Routine physical examination 05/19/2019 10/13/2019 Screening for colon cancer 08/27/2018 1 12/14/2018 Overview: Added automatically from request for surgery [id number] Acute bronchitis with chroni c obstructive pulmonary [...] of this encounter (statuses as of 08/16/2023) [facility] History of Past illness Narrative* Problem Noted Date Diagnosed Date Resolved Date Routine physical examination 05/19/2019 10/13/2019 Screening for colon cancer 08/27/2018 1 12/14/2018 Overview: Added automatically from request for surgery [id number] Acute bronchitis with chroni c obstructive pulmonary [...] of this encounter (statuses as of 2023) [facility] History of Past illness Narrative* Problem Noted Date Diagnosed Date Resolved Date Routine physical examination 05/19/2019 10/13/2019 Screening for colon cancer 08/27/2018 1 12/14/2018 Overview: Added automatically from request for surgery [id number] Acute bronchitis with chroni c obstructive pulmonary [...] of this encounter (statuses as of 2023) [facility] History of Past illness Narrative* Problem Noted Date Diagnosed Date Resolved Date Routine physical examination 05/19/2019 10/13/2019 Screening for colon cancer 08/27/2018 1 12/14/2018 Overview: Added automatically from request for surgery [id number] Acute bronchitis with chroni c obstructive pulmonary [...] of this encounter (statuses as of 2023) [facility] History of Past illness Narrative* Problem Noted Date Diagnosed Date Resolved Date Routine physical examination 05/19/2019 10/13/2019 Screening for colon cancer 08/27/2018 1 12/14/2018 Overview: Added automatically from request for surgery [id number] Acute bronchitis with chroni c obstructive pulmonary [...] of this encounter (statuses as of 2023) [facility] History of Past illness Narrative* Problem Noted Date Diagnosed Date Resolved Date Routine physical examination 05/19/2019 10/13/2019 Screening for colon cancer 08/27/2018 1 12/14/2018 Overview: Added automatically from request for surgery [id number] Acute bronchitis with chroni c obstructive pulmonary [...] of this encounter (statuses as of 09/05/2023) [facility] History of Past illness Narrative* Problem Noted Date Diagnosed Date Resolved Date Routine physical examination 05/19/2019 10/13/2019 Screening for colon cancer 08/27/2018 1 12/14/2018 Overview: Added automatically from request for surgery [id number] Acute bronchitis with chroni c obstructive pulmonary disease (COPD) ([facility]) 11/06/2017 9 Well adult exam 11/09/2016 [...] of this encounter (statuses as of 09/18/2023) [facility] History of Past illness Narrative* Problem Noted Date Diagnosed Date Resolved Date Routine physical examination 05/19/2019 10/13/2019 Screening for colon cancer 08/27/2018 1 12/14/2018 Overview: Added automatically from request for surgery [id number] Acute bronchitis with chroni c obstructive pulmonary disease (COPD) ([facility]) 11/06/2017 9 Well adult exam 11/09/2016 [...] of this encounter (statuses as of 10/09/2023) [facility] History of Past illness Narrative* Problem Noted Date Diagnosed Date Resolved Date Routine physical examination 05/19/2019 10/13/2019 Screening for colon cancer 08/27/2018 1 12/14/2018 Overview: Added automatically from request for surgery [id number] Acute bronchitis with chroni c obstructive pulmonary disease (COPD) ([facility]) 11/06/2017 9 Well adult exam 11/09/2016 [...] of this encounter (statuses as of 12/25/2023) [facility] History of Past illness Narrative* Problem Noted Date Diagnosed Date Resolved Date Routine physical examination 05/19/2019 10/13/2019 Screening for colon cancer 08/27/2018 1 12/14/2018 Overview: Added automatically from request for surgery [id number] Acute bronchitis with chroni c obstructive pulmonary [...] of this encounter (statuses as of 12/27/2023) [place] [address]-23-2019 History of Past illness Narrative* Problem Noted Date Diagnosed Date Resolved Date Routine physical examination 05/19/2019 10/13/2019 Screening for colon cancer 08/27/2018 1 12/14/2018 Overview: Added automatically from request for surgery [id number] Acute bronchitis with chroni c obstructive pulmonary disease (COPD) ([facility]) 11/06/2017 9 Well adult exam 11/09/2016 [...] of this encounter (statuses as of 01/30/2024) [facility] History of Past illness Narrative* Problem Noted Date Diagnosed Date Resolved Date Routine physical examination 05/19/2019 10/13/2019 Screening for colon cancer 08/27/2018 1 12/14/2018 Overview: Added automatically from request for surgery [id number] Acute bronchitis with chroni c obstructive pulmonary disease (COPD) ([facility]) 11/06/2017 9 Well adult exam 11/09/2016 [...] of this encounter (statuses as of 02/13/2024) [facility] Note Date/Time February 23, 2025 2:1 2pm [facility] Medical Records Department [address] [place] [address] Counseling Note - Pharmacy 02/23/25 1410 MR#: [id number] Acct: [id number] Name: LISA LUCERO Rep #:[id number] 23 : 1955 69 From: Brandan Rodas PCP: Dr. Phuc Martines, DO Status:AD M IN Y Location: [facility] [id number] Pharmacy [facility] Service has performed discharge medication reconciliation [...] understanding of their dischargemedications. Patient counseled by judicial clerk, Pete. Medications at Discharge Home Medications Oxygen, [...] sodium chloride 0.65 % nasal spray aerosol ([place] Saline) 1 spray intranasal BID PRN dry [...] Signature (if applicable): Date CC: ~ Signed [facility] Work Phone: Evaluation note* Diagnosis Chronic obstructive pulmonary disease, unspecified COPD type (HCC)- Primary Essential hypertension Unspecified essential hypertension Impaired fasting glucose Dyslipidemia Other and unspecified hyperlipidemia Vitamin D deficiency Unspecified vitamin D deficiency Lightheaded Dizziness and giddiness [facility] Diagnosis Chronic obstructive pulmonary disease, unspecified COPD type (HCC)- Primary Dyspnea and respiratory abnormalities Other dyspnea and respiratory abnormality [facility] Diagnosis Chronic obstructive pulmonary disease, unspecified COPD type (HCC) [facility]* Diagnosis Chronic obstructive pulmonary disease, unspecified COPD type (HCC) [facility]* Diagnosis Chronic obstructive pulmonary disease, unspecified COPD type (HCC)- Primary Chronic hypoxemic respiratory failure (HCC) Chronic respiratory failure Dyspnea and respiratory abnormalities Other dyspnea and respiratory abnormality Former smoker Personal history of tobacco use, presenting hazards to health [facility]* Diagnosis Chronic obstructive pulmonary disease, unspecified COPD type (HCC)- Primary [facility]* Diagnosis Chronic obstructive pulmonary disease, unspecified COPD type (HCC)- Primary Essential hypertension Unspecified essential hypertension Need for influenza vaccination Need for prophylactic vaccination and inoculation against influenza Impaired fasting glucose Dyslipidemia Other and unspecified hyperlipidemia Chronic respiratory failure with hypoxia (HCC) Chronic respiratory failure Stage 3 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) Oxygen dependent Dependence on supplemental oxygen [facility]* Diagnosis Cyst of spleen- Primary Other diseases of spleen [facility]* Diagnosis Encounter for screening mammogram for breast cancer [facility] Diagnosis COVID- Primary Chronic obstructive pulmonary disease, unspecified COPD type (HCC) Bacterial sinusitis Unspecified sinusitis (chronic) Oxygen dependent Dependence on supplemental oxygen [facility]* Diagnosis Chronic obstructive pulmonary disease, unspecified COPD type (HCC) Oxygen dependent Dependence on supplemental oxygen [facility]* Diagnosis Cyst of spleen- Primary Other diseases of spleen documented in this encounter [facility] note* Diagnosis Chronic obstructive pulmonary disease, unspecified COPD type (HCC)- Primary Oxygen dependent Dependence on supplemental oxygen [facility]* Diagnosis Chronic obstructive pulmonary disease, unspecified COPD type (HCC) [facility]* Diagnosis Chronic obstructive pulmonary disease, unspecified COPD type (HCC)- Primary Oxygen dependent Dependence on supplemental oxygen [facility]* Diagnosis Chronic obstructive pulmonary disease, unspecified COPD type (HCC) Oxygen dependent Dependence on supplemental oxygen [facility]* Diagnosis COPD, severe (HCC)- Primary Chronic airway obstruction, not elsewhere classified Chronic hypoxemic respiratory failure (HCC) Chronic respiratory failure Former cigarette smoker Personal history of tobacco use, presenting hazards to health Morbid obesity ([facility]) Morbid obesity documented in this encounter [facility] note* Diagnosis Essential hypertension Unspecified essential hypertension [facility]* Diagnosis Essential hypertension- Primary Unspecified essential hypertension Need for influenza vaccination Need for prophylactic vaccination and inoculation against influenza Encounter for screening mammogram for malignant neoplasm of breast Other screening mammogram Need for RSV immunization Need for prophylactic vaccination and inoculation against respiratory syncytial virus Vitamin D deficiency Unspecified vitamin D deficiency Impaired fasting glucose Stage 3 severe COPD by GOLD classification ([facility]) Oxygen dependent Dependence on supplemental oxygen Fatigue, unspecified type Rash of foot Dyslipidemia Other and unspecified hyperlipidemia documented in this encounter [facility] note* Diagnosis Encounter for screening mammogram for breast cancer [facility]* Diagnosis Cyst of spleen Other diseases of spleen documented in this encounter [facility] note* Diagnosis Chronic obstructive pulmonary disease, unspecified COPD type (HCC) Chronic respiratory failure with hypoxia (HCC) Chronic respiratory failure Stage 3 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) Oxygen dependent Dependence on supplemental oxygen [facility]* Diagnosis Cyst of spleen Other diseases of spleen [facility]* Diagnosis Chronic obstructive pulmonary disease, unspecified COPD type (HCC)- Primary Oxygen dependent Dependence on supplemental oxygen [facility]* Diagnosis Encounter for screening mammogram for malignant neoplasm of breast Other screening mammogram [facility]* Diagnosis Former cigarette smoker Personal history of tobacco use, presenting hazards to health [facility] Diagnosis Dyslipidemia- Primary Other and unspecified hyperlipidemia Impaired fasting glucose [facility]* Diagnosis Stage 3 severe COPD by GOLD classification ([facility])- Primary Chronic respiratory failure with hypoxia (HCC) Chronic respiratory failure Morbid obesity with BMI of 45.0-49.9, adult (HCC) Morbid obesity Lung nodules Other nonspecific abnormal finding of lung field [facility] Diagnosis Skin infection- Primary Unspecified local infection of skin and subcutaneous tissue [facility]* Diagnosis Acute bronchitis with chronic obstructive pulmonary disease (COPD) (HCC) ([facility])- Primary Obstructive chronic bronchitis with acute bronchitis Chronic obstructive pulmonary disease, unspecified COPD type (HCC) Acute otitis media, left Unspecified otitis media Dyslipidemia Other and unspecified hyperlipidemia Impaired fasting glucose Vitamin D deficiency Unspecified vitamin D deficiency Essential hypertension Unspecified essential hypertension Stage 3 severe COPD by GOLD classification ([facility]) Fatigue, unspecified type Oxygen dependent Dependence on supplemental oxygen Morbid obesity with BMI of 45.0-49.9, adult ([facility]) Morbid obesity Thoracic aortic ectasia (HCC) Thoracic aortic ectasia [facility]* Diagnosis Stage 3 severe COPD by GOLD classification ([facility])- Primary Chronic hypoxemic respiratory failure (HCC) Chronic respiratory failure Former cigarette smoker Personal history of tobacco use, presenting hazards to health Morbid obesity ([facility]) Morbid obesity [facility]* Diagnosis Essential hypertension Unspecified essential hypertension [facility] Diagnosis COVID Bacterial sinusitis Unspecified sinusitis (chronic) Chronic obstructive pulmonary disease, unspecified COPD type ([facility]) [facility]* Diagnosis Acute gout involving toe of right foot, unspecified cause [facility]* Diagnosis Multiple lung nodules- Primary Other nonspecific abnormal finding of lung field Encounter for screening for lung cancer Former tobacco use Personal history of tobacco use, presenting hazards to health [facility]* Diagnosis Former cigarette smoker Personal history of tobacco use, presenting hazards to health [facility]* Diagnosis Encounter for screening mammogram for breast cancer [facility]* Diagnosis Dyslipidemia- Primary Other and unspecified hyperlipidemia Chronic obstructive pulmonary disease, unspecified COPD type ([facility]) Impaired fasting glucose documented in this encounter [facility] note* Diagnosis Encounter for screening mammogram for breast cancer documented in this encounter [facility] note* Diagnosis Stage 3 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)- Primary Chronic respiratory failure with hypoxia (HCC) Chronic respiratory failure Former cigarette smoker Personal history of tobacco use, presenting hazards to health documented in this encounter [facility] note* Diagnosis Medicare annual wellness visit, subsequent- Primary Routine general medical examination at a health care facility Hair thinning Alopecia, unspecified Fatigue, unspecified type Impaired fasting glucose Dyslipidemia Other and unspecified hyperlipidemia Vitamin D deficiency Unspecified vitamin D deficiency Stage 3 severe COPD by GOLD classification ([facility]) Essential hypertension Unspecified essential hypertension Oxygen dependent Dependence on supplemental oxygen Morbid obesity with BMI of 45.0-49.9, adult (HCC) Morbid obesity documented in this encounter [facility] note* Diagnosis Multiple lung nodules- Primary Other nonspecific abnormal finding of lung field Former tobacco use Personal history of tobacco use, presenting hazards to health [facility]* Diagnosis Lung nodules- Primary Other nonspecific abnormal finding of lung field [facility]* Diagnosis Hospital discharge follow-up- Primary Other follow-up examination Atrial flutter, unspecified type (HCC) Congestive heart failure, unspecified HF chronicity, unspecified heart failure type (HCC) Stage 3 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) Oxygen dependent Dependence on supplemental oxygen Essential hypertension Unspecified essential hypertension documented in this encounter [facility] note* Diagnosis Daytime sleepiness- Primary Stage 3 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) Chronic respiratory failure with hypoxia (HCC) Chronic respiratory failure documented in this encounter [facility] note* Diagnosis Essential (primary) hypertension Unspecified essential hypertension Atrial flutter, unspecified type (HCC) documented in this encounter [facility] note* Diagnosis Acute cystitis with hematuria Acute cystitis Candidal intertrigo Candidiasis of skin and nails Confusion Unspecified psychosis [facility]* Diagnosis Acute confusion- Primary Delirium due to conditions classified elsewhere Atrial flutter, unspecified type (HCC) Tachycardia Tachycardia, unspecified Stage 3 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) Congestive heart failure, unspecified HF chronicity, unspecified heart failure type (HCC) Hypersomnia Hypersomnia, unspecified Hives Urticaria, unspecified Abnormal pulse oximetry Abnormal arterial blood gases documented in this encounter [facility] Discharge instructionsAmbulatory Orders* Electrophysiology Location: None Selected [place] [facility] Work Phone: Reason for referral (narrative)* Outpatient Procedure (Routine) - Authorized Specialty Diagnoses / Procedures Referred By Contac t Referred To [facility] Diagnoses Chronic obstructive pulmonary disease, unspecified COPD type (HCC) Procedures ECHO ECHO TTHRC R-T 2D W/WOM-MODE COMPL SPEC&COLR D Hodan Christine PA-C [address] [address] [facility] [address] [address] Referral ID Status Reason Start Date Expiration Date Visits Requested Visits Authorized [id number] Authorized Auto-Generat ed Referral OON/Self Pay Override 02/09/2022 02/09/2023 1 1 * Outpatient Procedure (Routine) - Authorized Specialty Diagnoses / Procedures Referred By Contac t Referred To Contact [facility] Diagnoses Chronic obstructive pulmonary disease, unspecified COPD type (HCC) Procedures OXIMETRY WITH AMBULATION NONINVASIVE EAR/PULSE OXIMETRY MULTIPLE DETER Hodan Christine PA-C [address] [address] [facility] [address] [place] [id number] Referral ID Status Reason Start Date Expiration Date Visits Requested Visits Authorized [id number] Authorized Auto-Generat ed Referral OON/Self Pay Override 02/09/2022 03/11/2023 1 1 * Outpatient Procedure (Routine) - Authorized Specialty Diagnoses / Procedures Referred By Contac t Referred To Contact [facility] Diagnoses Chronic obstructive pulmonary disease, unspecified COPD type (HCC) Procedures SPIROMETRY BASELINE ONLY SPMTRY W/VC EXPIRATORY MARTIN W/WO MXML VOL VNTJ Hodan Christine PA-C [address] [address] [facility] [address] [place] [address] Referral ID Status Reason Start Date Expiration Date Visits Requested Visits Authorized [id number] Authorized Auto-Generat ed Referral OON/Self Pay Override 02/09/2022 03/11/2023 1 1 [facility] for referral (narrative)* Diagnostic Procedure Only (Routine) - Authorized Specialty Diagnoses / Procedures Referred By Contac t Referred To Contact US IMAGING Diagnoses Cyst of spleen Procedures US ABD SPLEEN US ABDOMINAL REAL TIME W/IMAGE LIMITED Pratibha King APRN.CNP [address] [place] [address] Us Imaging Referral ID Status Reason Start Date Expiration Date Visits Requested Visits Authorized [id number] Authorized Auto-Generat ed Referral 08/30/2022 09/29/2023 1 1 [facility] for referral (narrative)* Diagnostic Procedure Only (Routine) - Authorized Specialty Diagnoses / Procedures Referred By Contac t Referred To Contact BR IMAGING Diagnoses Encounter for screening mammogram for breast cancer Procedures ANUSHA SCREENING SCREENING MAMMOGRAPHY BI 2-VIEW BREAST INC CAD Phuc Martines DO [address] [place] [address] Br Imaging [address] [place] [address] Referral ID Status Reason Start Date Expiration Date Visits Requested Visits Authorized [id number] Authorized Auto-Generat ed Referral 09/05/2022 10/05/2023 1 1 [facility] for referral (narrative)* Diagnostic Procedure Only (Routine) - Authorized Specialty Diagnoses / Procedures Referred By Contac t Referred To Contact US IMAGING Diagnoses Cyst of spleen Procedures US ABD SPLEEN US ABDOMINAL REAL TIME W/IMAGE LIMITED Pratibha King APRN.CNP [address] [place] [address] Us Imaging Referral ID Status Reason Start Date Expiration Date Visits Requested Visits Authorized [id number] Authorized Auto-Generat ed Referral 03/06/2023 10/06/2023 1 1 [facility] for referral (narrative)* Outpatient Procedure (Routine) - Authorized Specialty Diagnoses / Procedures Referred By Contac t Referred To Contact [facility] Diagnoses Chronic obstructive pulmonary disease, unspecified COPD type (HCC) Oxygen dependent Procedures OXIMETRY WITH AMBULATION NONINVASIVE EAR/PULSE OXIMETRY Hodan Sewell PA-C [address] [place] [address] [facility] [address] [place] [address] Referral ID Status Reason Start Date Expiration Date Visits Requested Visits Authorized [id number] Authorized Auto-Generat ed Referral 05/30/2023 06/28/2024 1 1 T [facility] for referral (narrative)* Diagnostic Procedure Only (Routine) - Authorized Specialty Diagnoses / Procedures Referred By Contac t Referred To Contact BR IMAGING Diagnoses Encounter for screening mammogram for malignant neoplasm of breast Procedures ANUSHA SCREENING SCREENING MAMMOGRAPHY BI 2-VIEW BREAST INC CAD Phuc Martines, DO [address] [place] [address] Br Imaging [address] [place] [phone] Referral ID Status Reason Start Date Expiration Date Visits Requested Visits Authorized [id number] Authorized Auto-Generat ed Referral 09/12/2024 1 1 [facility] for referral (narrative)* Diagnostic Procedure Only (Routine) - Closed Specialty Diagnoses / Procedures Referred By Contac t Referred To Contact BR IMAGING Diagnoses Encounter for screening mammogram for breast cancer Procedures ANUSHA SCREENING SCREENING MAMMOGRAPHY BI 2-VIEW BREAST INC CAD Phuc Martines, DO [address] [place] [address] Br Imaging [address] [place] [address] Referral ID Status Reason Start Date Expiration Date V isits Requested Visits Authorized [id number] Closed Auto-Generate d Referral 09/05/2022 10/05/2023 1 1 [facility] for referral (narrative)* Diagnostic Procedure Only (Routine) - Closed Specialty Diagnoses / Procedures Referred By Contac t Referred To Contact US IMAGING Diagnoses Cyst of spleen Procedures US ABD SPLEEN US ABDOMINAL REAL TIME W/IMAGE LIMITED Pratibha King APRN.[employer]ATOR [address] [place] [address] [place] [address] Referral ID Status Reason Start Date Expiration Date V isits Requested Visits Authorized [id number] Closed Auto-Generate d Referral 03/06/2023 10/06/2023 1 1 [facility] for referral (narrative)* Diagnostic Procedure Only (Routine) - Pending Review Specialty Diagnoses / Procedures Referred By Contac t Referred To Contact US IMAGING Diagnoses Cyst of spleen Procedures US ABD SPLEEN US ABDOMINAL REAL TIME W/IMAGE LIMITED Pratibha King APRN.[employer] OPERATOR [address] [place] [address] [place] [address] Referral ID Status Reason Start Date Expiration Date Visits Requested Visits Authorized [id number] Pending Review Auto-Generat ed Referral 08/30/2022 09/29/2023 1 1 [facility] for referral (narrative)* Outpatient Procedure (Routine) - Closed Specialty Diagnoses / Procedures Referred By Contac t Referred To Contact [facility] Diagnoses Chronic obstructive pulmonary disease, unspecified COPD type (HCC) Oxygen dependent Procedures OXIMETRY WITH AMBULATION NONINVASIVE EAR/PULSE OXIMETRY Phuc Montgomery DO [address] [place] [address] [facility] [address] [place] [address] Referral ID Status Reason Start Date Expiration Date V isits Requested Visits Authorized [id number] Closed Auto-Generate d Referral 09/24/2022 10/24/2023 1 1 [facility] for referral (narrative)* Diagnostic Procedure Only (Routine) - Closed Specialty Diagnoses / Procedures Referred By Contac t Referred To Contact [facility] IMAG[facility] Diagnoses Encounter for screening mammogram for malignant neoplasm of breast Procedures ANUSHA SCREENING SCREENING MAMMOGRAPHY BI 2-VIEW BREAST INC Phuc Tejeda, DO [address] [place] [address] Br Imaging [address] [place] [address] Referral ID Status Reason Start Date Expiration Date V isits Requested Visits Authorized [id number] Closed Auto-Generate d Referral 08/14/2023 09/12/2024 1 1 [facility] for referral (narrative)* Diagnostic Procedure Only (Routine) - New Request Specialty Diagnoses / Procedures Referred By Marcy t Referred To Contact BR IMAGING Diagnoses Encounter for screening mammogram for breast cancer Procedures ANUSHA SCREENING W ASHLEY SCREENING DIGITAL BREAST TOMOSYNTHESIS BI SCREENING MAMMOGRAPHY BI 2-VIEW BREAST INC CAD Phuc Martines, DO [address] [place] [address] [facility] Imaging [address] [place] [address] Referral ID Status Reason Start Date Expiration Date Visits Requested Visits Authorized [id number] New Request Auto-Generat ed Referral 11/20/2025 1 1 [facility] for referral (narrative)* Diagnostic Procedure Only (Routine) - Closed Specialty Diagnoses / Procedures Referred By Contac t Referred To Contact [facility] Diagnoses Encounter for screening mammogram for breast cancer Procedures ANUSHA SCREENING W ASHLEY SCREENING DIGITAL BREAST TOMOSYNTHESIS BI SCREENING MAMMOGRAPHY BI 2-VIEW BREAST INC CAD Phuc Martines, DO [address] [place] [address] Br Imaging [address] [place] [address] Referral ID Status Reason Start Date Expiration Date V isits Requested Visits Authorized [id number] Closed Auto-Generate d Referral 10/21/2024 11/20/2025 1 1 [facility] for visit Narrative* Outpatient Procedure (Routine) - Closed Specialty Diagnoses / Procedures Referred By Marcy t Referred To Contact [facility] Diagnoses Chronic obstructive pulmonary disease, unspecified COPD type (HCC) Oxygen dependent Procedures OXIMETRY WITH AMBULATION NONINVASIVE EAR/PULSE OXIMETRY MULTIPLE Phuc Maldonado DO [address] [place] [address] [facility] [address] [place] [address] Referral ID Status Reason Start Date Expiration Date V isits Requested Visits Authorized [id number] Closed Auto-Generate d Referral 09/24/2022 10/24/2023 1 1 [facility] for visit Narrative* Diagnostic Procedure Only (Routine) - Closed Specialty Diagnoses / Procedures Referred By Marcy t Referred To Contact [facility] Diagnoses Encounter for screening mammogram for breast cancer Procedures ANUSHA SCREENING SCREENING MAMMOGRAPHY BI 2-VIEW BREAST INC Phuc Tejeda DO [address] [place] [address] Br Imaging [address] [place] [phone] Referral ID Status Reason Start Date Expiration Date V isits Requested Visits Authorized [id number] Closed Auto-Generate d Referral 09/05/2022 10/05/2023 1 1 [facility] for visit Narrative* Diagnostic Procedure Only (Routine) - Closed Specialty Diagnoses / Procedures Referred By Marcy t Referred To Contact US IMAGING Diagnoses Cyst of spleen Procedures US ABD SPLEEN US ABDOMINAL REAL TIME W/IMAGE LIMITED Pratibha King, SHERIFF OFFICER.[employer] OPERATOR [address] [place] [address] [facility] [address] Referral ID Status Reason Start Date Expiration Date V isits Requested Visits Authorized [id number] Closed Auto-Generate d Referral 03/06/2023 10/06/2023 1 1 [facility] for visit Narrative* Diagnostic Procedure Only (Routine) - Closed Specialty Diagnoses / Procedures Referred By Marcy t Referred To Contact [facility] Diagnoses Encounter for screening mammogram for malignant neoplasm of breast Procedures ANUSHA SCREENING SCREENING MAMMOGRAPHY BI 2-VIEW BREAST INC CAD Conrad Phuc L, DO [address] [place] [address] [facility] [address] [place] [address] Referral ID Status Reason Start Date Expiration Date V isits Requested Visits Authorized [id number] Closed Auto-Generate d Referral 08/14/2023 09/12/2024 1 1 [facility] for visit Narrative* Diagnostic Procedure Only (Routine) - Closed Specialty Diagnoses / Procedures Referred By Marcy boudreaux Referred To Contact [facility] Diagnoses Encounter for screening mammogram for breast cancer Procedures ANUSHA SCREENING W ASHLEY SCREENING DIGITAL BREAST TOMOSYNTHESIS BI SCREENING MAMMOGRAPHY BI 2-VIEW BREAST INC CAD Phuc Martines L, DO [address] [place] [address] [facility] [address] [place] [address] Referral ID Status Reason Start Date Expiration Date V isits Requested Visits Authorized [id number] Closed Auto-Generate d Referral 10/21/2024 11/20/2025 1 1 [facility] Summary Purpose Family History Relationship Condition Age [...] Documents on File Type Date Recorded Patient Director Oracle Database Expl anation Advance Directive(s) 09/10/2018 10:48 AM Documents on File Type Date Recorded Patient Director Oracle Database Expl anation Advance Directive(s) 09/10/2018 10:48 AM Advance Directive Response Recorded Date/ Time Do you have a Healthcare Power of Sign Language Instructor? No February 19, 2025 4:27pm Reason for Referral Specialty Diagnoses / Procedures Referred By Contac t Referred To Contact CT IMAGING Diagnoses Chronic obstructive pulmonary disease, unspecified COPD type (HCC) Chronic respiratory failure with hypoxia (HCC) Stage 3 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) Oxygen dependent Procedures CT CHEST WO IVCON DIAGNOSTIC COMPUTED TOMOGRAPHY THORAX W/O CNTRST Phuc Martines L, DO [address] [place] [address] Ct Imaging Referral ID Status Reason Start Date Expiration Date Visits Requested Visits Authorized [id number] Authorized Auto-Generat ed Referral 08/01/2022 08/31/2023 1 1 Specialty Diagnoses / Procedures Referred By Contac t Referred To Contact CT IMAGING Diagnoses Chronic obstructive pulmonary disease, unspecified COPD type (HCC) Chronic respiratory failure with hypoxia (HCC) Stage 3 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) Oxygen dependent Procedures CT CHEST WO IVCON DIAGNOSTIC COMPUTED TOMOGRAPHY THORAX W/O CNTRST Phuc Martines L, DO [address] [place] [address] Ct Imaging [facility] Referral ID Status Reason Start Date Expiration Date V isits Requested Visits Authorized [id number] Closed Auto-Generate d Referral 08/01/2022 08/31/2023 1 1 Specialty Diagnoses / Procedures Referred By Contac t Referred To Contact CT IMAGING Diagnoses Lung nodules Procedures CT LUNG FOLLOWUP WO IVCON DIAGNOSTIC COMPUTED TOMOGRAPHY THORAX W/O CNTRST Maricruz Camp, SHERIFF OFFICER.[employer] OPERATOR [address] [place] [address] Ct Imaging [facility] Referral ID Status Reason Start Date Expiration Date Visits Requested Visits Authorized [id number] New Request Auto-Generat ed Referral 12/26/2024 11/18/2025 1 1 Specialty Diagnoses / Procedures Referred By Contac t Referred To Contact CT IMAGING Diagnoses Former cigarette smoker Procedures CT LUNG SCREEN WO IVCON COMPUTED TOMOGRAPHY THORAX LW DOSE LNG CA SCR C- Maricruz Camp, SHERIFF OFFICER.[employer] TR[employer] PLANT OPERATOR [address] [place] [address] Ct Imaging [facility] Referral ID Status Reason Start Date Expiration Date V isits Requested Visits Authorized [id number] Closed Auto-Generate d Referral 10/11/2023 11/09/2024 1 [...] HYPOXIA February 23, 2025 1:2 2pm S/P [facility] 02/23 ([facility]) March 30, 2025 11:2 4am [...] section and content) DATE CREATED AUTHOR 10/05/2018 [facility] DATE CREATED AUTHOR AUTHOR'S ORGANIZ ATION 04/08/[address] [facility] DATE CREATED AUTHOR AUTHOR'S ORGANIZ ATION 04/23/2025 [facility] Source Comments (unrecognize d section and content) In the event this informatio n is protected by the Federal Confidentiality of Alcohol and Drug Abuse Patient Records regulations: The Federal rules restrict any use of the information to criminally investigate or prosecute any alcohol or drug abuse patient.[facility] the event this information is protected by the Federal Confidentiality of Alcohol and Drug Abuse Patient Records regulations: The Federal rules restrict any use of the information to criminally investigate or prosecute any alcohol or drug abuse patient.[facility] the event this information is protected by the Federal Confidentiality of Alcohol and Drug Abuse Patient Records regulations: The Federal rules restrict any use of the information to criminally investigate or prosecute any alcohol or drug abuse patient.[facility] the event this information is protected by the Federal Confidentiality of Alcohol and Drug Abuse Patient Records regulations: The Federal rules restrict any use of the information to criminally investigate or prosecute any alcohol or drug abuse patient.[facility] the event this information is protected by the Federal Confidentiality of Alcohol and Drug Abuse Patient Records regulations: The Federal rules restrict any use of the information to criminally investigate or prosecute any alcohol or drug abuse patient.[facility] the event this information is protected by the Federal Confidentiality of Alcohol and Drug Abuse Patient Records regulations: The Federal rules restrict any use of the information to criminally investigate or prosecute any alcohol or drug abuse patient.[facility] the event this information is protected by the Federal Confidentiality of Alcohol and Drug Abuse Patient Records regulations: The Federal rules restrict any use of the information to criminally investigate or prosecute any alcohol or drug abuse patient.[facility] the event this information is protected by the Federal Confidentiality of Alcohol and Drug Abuse Patient Records regulations: The Federal rules restrict any use of the information to criminally investigate or prosecute any alcohol or drug abuse patient.[facility] the event this information is protected by the Federal Confidentiality of Alcohol and Drug Abuse Patient Records regulations: The Federal rules restrict any use of the information to criminally investigate or prosecute any alcohol or drug abuse patient.[facility] the event this information is protected by the Federal Confidentiality of Alcohol and Drug Abuse Patient Records regulations: The Federal rules restrict any use of the information to criminally investigate or prosecute any alcohol or drug abuse patient.[facility] the event this information is protected by the Federal Confidentiality of Alcohol and Drug Abuse Patient Records regulations: The Federal rules restrict any use of the information to criminally investigate or prosecute any alcohol or drug abuse patient.[facility] the event this information is protected by [...] or prosecute any alcohol or drug abuse patient.[facility] the event this information is protected by the Federal Confidentiality of Alcohol and Drug Abuse Patient Records regulations: The Federal rules restrict any use of the information to criminally investigate or prosecute any alcohol or drug abuse patient.[facility] the event this information is protected by the Federal Confidentiality of Alcohol and Drug Abuse Patient Records regulations: The Federal rules restrict any use of the information to criminally investigate or prosecute any alcohol or drug abuse patient.[facility] the event this information is protected by the Federal Confidentiality of Alcohol and Drug Abuse Patient Records regulations: The Federal rules restrict any use of the information to criminally investigate or prosecute any alcohol or drug abuse patient.[facility] the event this information is protected by the Federal Confidentiality of Alcohol and Drug Abuse Patient Records regulations: The Federal rules restrict any use of the information to criminally investigate or prosecute any alcohol or drug abuse patient.[facility] the event this information is protected by the Federal Confidentiality of Alcohol and Drug Abuse Patient Records regulations: The Federal rules restrict any use of the information to criminally investigate or prosecute any alcohol or drug abuse patient.[facility] the event this information is protected by the Federal Confidentiality of Alcohol and Drug Abuse Patient Records regulations: The Federal rules restrict any use of the information to criminally investigate or prosecute any alcohol or drug abuse patient.[facility] the event this information is protected by the Federal Confidentiality of Alcohol and Drug Abuse Patient Records regulations: The Federal rules restrict any use of the information to criminally investigate or prosecute any alcohol or drug abuse patient.[facility] the event this information is protected by the Federal Confidentiality of Alcohol and Drug Abuse Patient Records regulations: The Federal rules restrict any use of the information to criminally investigate or prosecute any alcohol or drug abuse patient.[facility] the event this information is protected by the Federal Confidentiality of Alcohol and Drug Abuse Patient Records regulations: The Federal rules restrict any use of the information to criminally investigate or prosecute any alcohol or drug abuse patient.[facility] the event this information is protected by the Federal Confidentiality of Alcohol and Drug Abuse Patient Records regulations: The Federal rules restrict any use of the information to criminally investigate or prosecute any alcohol or drug abuse patient.[facility] the event this information is protected by the Federal Confidentiality of Alcohol and Drug Abuse Patient Records regulations: The Federal rules restrict any use of the information to criminally investigate or prosecute any alcohol or drug abuse patient.[facility] the event this information is protected by the Federal Confidentiality of Alcohol and Drug Abuse Patient Records regulations: The Federal rules restrict any use of the information to criminally investigate or prosecute any alcohol or drug abuse patient.[facility] the event this information is protected by the Federal Confidentiality of Alcohol and Drug Abuse Patient Records regulations: The Federal rules restrict any use of the information to criminally investigate or prosecute any alcohol or drug abuse patient.[facility] the event this information is protected by the Federal Confidentiality of Alcohol and Drug Abuse Patient Records regulations: The Federal rules restrict any use of the information to criminally investigate or prosecute any alcohol or drug abuse patient.[facility] the event this information is protected by the Federal Confidentiality of Alcohol and Drug Abuse Patient Records regulations: The Federal rules restrict any use of the information to criminally investigate or prosecute any alcohol or drug abuse patient.[facility] the event this information is protected by the Federal Confidentiality of Alcohol and Drug Abuse Patient Records regulations: The Federal rules restrict any use of the information to criminally investigate or prosecute any alcohol or drug abuse patient.[facility] the event this information is protected by the Federal Confidentiality of Alcohol and Drug Abuse Patient Records regulations: The Federal rules restrict any use of the information to criminally investigate or prosecute any alcohol or drug abuse patient.[facility] the event this information is protected by the Federal Confidentiality of Alcohol and Drug Abuse Patient Records regulations: The Federal rules restrict any use of the information to criminally investigate or prosecute any alcohol or drug abuse patient.[facility] the event this information is protected by the Federal Confidentiality of Alcohol and Drug Abuse Patient Records regulations: The Federal rules restrict any use of the information to criminally investigate or prosecute any alcohol or drug abuse patient.[facility] the event this information is protected by the Federal Confidentiality of Alcohol and Drug Abuse Patient Records regulations: The Federal rules restrict any use of the information to criminally investigate or prosecute any alcohol or drug abuse patient.[facility] the event this information is protected by the Federal Confidentiality of Alcohol and Drug Abuse Patient Records regulations: The Federal rules restrict any use of the information to criminally investigate or prosecute any alcohol or drug abuse patient.[facility] the event this information is protected by the Federal Confidentiality of Alcohol and Drug Abuse Patient Records regulations: The Federal rules restrict any use of the information to criminally investigate or prosecute any alcohol or drug abuse patient.[facility] the event this information is protected by the Federal Confidentiality of Alcohol and Drug Abuse Patient Records regulations: The Federal rules restrict any use of the information to criminally investigate or prosecute any alcohol or drug abuse patient.[facility] the event this information is protected by the Federal Confidentiality of Alcohol and Drug Abuse Patient Records regulations: The Federal rules restrict any use of the information to criminally investigate or prosecute any alcohol or drug abuse patient.[facility] the event this information is protected by the Federal Confidentiality of Alcohol and Drug Abuse Patient Records regulations: The Federal rules restrict any use of the information to criminally investigate or prosecute any alcohol or drug abuse patient.[facility] the event this information is protected by the Federal Confidentiality of Alcohol and Drug Abuse Patient Records regulations: The Federal rules restrict any use of the information to criminally investigate or prosecute any alcohol or drug abuse patient.[facility] the event this information is protected by the Federal Confidentiality of Alcohol and Drug Abuse Patient Records regulations: The Federal rules restrict any use of the information to criminally investigate or prosecute any alcohol or drug abuse patient.[facility] the event this information is protected by the Federal Confidentiality of Alcohol and Drug Abuse Patient Records regulations: The Federal rules restrict any use of the information to criminally investigate or prosecute any alcohol or drug abuse patient.[facility] the event this information is protected by the Federal Confidentiality of Alcohol and Drug Abuse Patient Records regulations: The Federal rules restrict any use of the information to criminally investigate or prosecute any alcohol or drug abuse patient.[facility] PrebleIn the event this information is protected by the Federal Confidentiality of Alcohol and Drug Abuse Patient Records regulations: The Federal rules restrict any use of the information to criminally investigate or prosecute any alcohol or drug abuse patient.[facility] PrebleIn the event this information is protected by the Federal Confidentiality of Alcohol and Drug Abuse Patient Records regulations: The Federal rules restrict any use of the information to criminally investigate or prosecute any alcohol or drug abuse patient.[facility] PrebleIn the event this information is protected by the Federal Confidentiality of Alcohol and Drug Abuse Patient Records regulations: The Federal rules restrict any use of the information to criminally investigate or prosecute any alcohol or drug abuse patient.[facility] PrebleIn the event this information is protected by the Federal Confidentiality of Alcohol and Drug Abuse Patient Records regulations: The Federal rules restrict any use of the information to criminally investigate or prosecute any alcohol or drug abuse patient.[facility] PrebleIn the event this information is protected by the Federal Confidentiality of Alcohol and Drug Abuse Patient Records regulations: The Federal rules restrict any use of the information to criminally investigate or prosecute any alcohol or drug abuse patient.[facility] PrebleIn the event this information is protected by the Federal Confidentiality of Alcohol and Drug Abuse Patient Records regulations: The Federal rules restrict any use of the information to criminally investigate or prosecute any alcohol or drug abuse patient.[facility] PrebleIn the event this information is protected by the Federal Confidentiality of Alcohol and Drug Abuse Patient Records regulations: The Federal rules restrict any use of the information to criminally investigate or prosecute any alcohol or drug abuse patient.[facility] PrebleIn the event this information is protected by the Federal Confidentiality of Alcohol and Drug Abuse Patient Records regulations: The Federal rules restrict any use of the information to criminally investigate or prosecute any alcohol or drug abuse patient.[facility] PrebleIn the event this information is protected by the Federal Confidentiality of Alcohol and Drug Abuse Patient Records regulations: The Federal rules restrict any use of the information to criminally investigate or prosecute any alcohol or drug abuse patient.[facility] PrebleIn the event this information is protected by the Federal Confidentiality of Alcohol and Drug Abuse Patient Records regulations: The Federal rules restrict any use of the information to criminally investigate or prosecute any alcohol or drug abuse patient.[facility] PrebleIn the event this information is protected by the Federal Confidentiality of Alcohol and Drug Abuse Patient Records regulations: The Federal rules restrict any use of the information to criminally investigate or prosecute any alcohol or drug abuse patient.[facility] PrebleIn the event this information is protected by the Federal Confidentiality of Alcohol and Drug Abuse Patient Records regulations: The Federal rules restrict any use of the information to criminally investigate or prosecute any alcohol or drug abuse patient.[facility]bleIn the event this information is protected by the Federal Confidentiality of Alcohol and Drug Abuse Patient Records regulations: The Federal rules restrict any use of the information to criminally investigate or prosecute any alcohol or drug abuse patient.[facility]bleIn the event this information is protected by the Federal Confidentiality of Alcohol and Drug Abuse Patient Records regulations: The Federal rules restrict any use of the information to criminally investigate or prosecute any alcohol or drug abuse patient.[facility] PrebleIn the event this information is protected by the Federal Confidentiality of Alcohol and Drug Abuse Patient Records regulations: The Federal rules restrict any use of the information to criminally investigate or prosecute any alcohol or drug abuse patient.[facility] PrebleIn the event this information is protected by the Federal Confidentiality of Alcohol and Drug Abuse Patient Records regulations: The Federal rules restrict any use of the information to criminally investigate or prosecute any alcohol or drug abuse patient.[facility] PrebleIn the event this information is protected by the Federal Confidentiality of Alcohol and Drug Abuse Patient Records regulations: The Federal rules restrict any use of the information to criminally investigate or prosecute any alcohol or drug abuse patient.[facility] the event this information is protected by the Federal Confidentiality of Alcohol and Drug Abuse Patient Records regulations: The Federal rules restrict any use of the information to criminally investigate or prosecute any alcohol or drug abuse patient.[facility] PrebleIn the event this information is protected by the Federal Confidentiality of Alcohol and Drug Abuse Patient Records regulations: The Federal rules restrict any use of the information to criminally investigate or prosecute any alcohol or drug abuse patient.[facility] PrebleIn the event this information is protected by [...] or prosecute any alcohol or drug abuse patient.[facility] PrebleIn the event this information is protected by the Federal Confidentiality of Alcohol and Drug Abuse Patient Records regulations: The Federal rules restrict any use of the information to criminally investigate or prosecute any alcohol or drug abuse patient.[facility]bleIn the event this information is protected by the Federal Confidentiality of Alcohol and Drug Abuse Patient Records regulations: The Federal rules restrict any use of the information to criminally investigate or prosecute any alcohol or drug abuse patient.[facility] PrebleIn the event this information is protected by the Federal Confidentiality of Alcohol and Drug Abuse Patient Records regulations: The Federal rules restrict any use of the information to criminally investigate or prosecute any alcohol or drug abuse patient.[facility] PrebleIn the event this information is protected by the Federal Confidentiality of Alcohol and Drug Abuse Patient Records regulations: The Federal rules restrict any use of the information to criminally investigate or prosecute any alcohol or drug abuse patient.[facility] Reason for Visit (unrecogniz ed section and content) Reason Comments Follow Up 3 months Specialty Diagnoses / Procedures Referred By Marcy boudreaux Referred To Contact [facility] Diagnoses 3 mo OV Procedures 3Mo OV Phuc Martines, DO [address] [place] [address] [facility] [address] [place] [address] Referral ID Status Reason Start Date Expiration Date Visits Requested Visits Authorized [id number] Pending Review OON/Self Pay Override 12/01/2021 03/01/2022 1 1 Reason Comments Established Patient Specialty Diagnoses / Procedures Referred By Marcy t Referred To Contact [facility] Diagnoses Breathing Issues Procedures Consult to Pulmonary Self [facility] [address] [place] [id number] Referral ID Status Reason Start Date Expiration Date Visits Requested Visits Authorized [id number] Outside PCP OON/Self Pay Override 02/05/2022 05/06/2022 1 1 Reason Onset Date Comments Refill Request 03/07/2022 Reason Comments Spirometry Specialty Diagnoses / Procedures Referred By Contac t Referred To Contact [facility] Diagnoses Chronic obstructive pulmonary disease, unspecified COPD type (HCC) Procedures SPIROMETRY BASELINE ONLY SPMTRY W/VC EXPIRATORY MARTIN W/WO MXML VOL VNTHodan Valencia PA-C [address] [address] [facility] [address] [place] [address] Referral ID Status Reason Start Date Expiration Date V isits Requested Visits Authorized [id number] Closed Auto-Generate d Referral OON/Self Pay Override 02/09/2022 03/11/2023 1 1 Specialty Diagnoses / Procedures Referred By Contac t Referred To Contact [facility] Diagnoses Chronic obstructive pulmonary disease, unspecified COPD type (HCC) Procedures OXIMETRY WITH AMBULATION NONINVASIVE EAR/PULSE OXIMETRY MULTIPLE DETER Hodan Christine PA-C [address] [address] [facility] [address] [place] [address] Referral ID Status Reason Start Date Expiration Date V isits Requested Visits Authorized [id number] Closed Auto-Generate d Referral OON/Self Pay Override 02/09/2022 03/11/2023 1 1 Reason Comments Established Patient 6 week follow up Specialty Diagnoses / Procedures Referred By Contac t Referred To Contact PULMONARY MEDICINE Diagnoses office visit Procedures office visit Hodan Christine PA-C [address] [facility] [place] [address] [facility] [address] [place] [address] Referral ID Status Reason Start Date Expiration Date Visits Requested Visits Authorized [id number] Pending Review OON/Self Pay Override 02/09/2022 05/10/2022 1 1 Reason Comments Orders Reason Onset Date Comments F/U 3 Month Immunizations 08/01/2022 Flu vaccination Specialty Diagnoses / Procedures Referred By Contac t Referred To Contact [facility] Diagnoses 3 month follow up Procedures 4c est Phuc Martines L, DO [address] [place] [address] [facility] [address] [place] [address] Referral ID Status Reason Start Date Expiration Date Visits Requested Visits Authorized [id number] Pending Review OON/Self Pay Override 05/01/2022 08/26/2022 [...] MULTIPLE Hodan Tejada PA-C [address] [place] [address] [facility] [address] [place] [id number] Referral ID Status Reason Start Date Expiration Date V isits Requested Visits Authorized [id number] Closed Auto-Generate d Referral 05/30/2023 06/28/2024 1 [...] TOMOGRAPHY THORAX W/O CNTRST Phuc Martines, DO [address] [place] [id number] Imaging [facility] Referral ID Status Reason Start Date Expiration Date V isits Requested Visits Authorized [id number] Closed Auto-Generate d Referral 08/01/2022 08/31/2023 1 1 Reason Comments Radiology US Specialty Diagnoses / Procedures Referred By Contac t Referred To Contact US IMAGING Diagnoses Cyst of spleen Procedures US ABD SPLEEN US ABDOMINAL REAL TIME W/IMAGE LIMITED Pratibha King, JAKI.RAILWAY TRACK PLANT OPERATOR [address] [place] [address] [place] [address] Referral ID Status Reason Start Date Expiration Date Visits Requested Visits Authorized [id number] Pending Review Auto-Generat ed Referral 08/30/2022 09/29/2023 1 1 Reason Comments Forms Reason Comments Radiology CT Specialty Diagnoses / Procedures Referred By Contac t Referred To Contact CT IMAGING Diagnoses Former cigarette smoker Procedures CT LUNG SCREEN WO IVCON COMPUTED TOMOGRAPHY THORAX LW DOSE LNG [facility] Hospital[facility]icruz martin, SHERIFF OFFICER.RAILWAY TRACK PLANT OPERATOR [address] [place] [address] Ct Imaging [facility] Referral ID Status Reason Start Date Expiration Date V isits Requested Visits Authorized [id number] Closed Auto-Generate d Referral 09/17/2023 10/16/2024 1 [...] COMPUTED TOMOGRAPHY THORAX LW DOSE LNG [place] [facility] HospitalMaricruz martin, SHERIFF OFFICER.RAILWAY TRACK PLANT OPERATOR [address] [place] [address] Ct Imaging [facility] Referral ID Status Reason Start Date Expiration Date V isits Requested Visits Authorized [id number] Closed Auto-Generate d Referral 10/11/2023 11/09/2024 1 [...] COMPUTED TOMOGRAPHY THORAX W/O CNTRST Maricruz Camp, SHERIFF OFFICER.RAILW[employer] TRACK PLANT OPERATOR [address] [place] [address] Phone: tel: fax: CT IMAGING [facility] Referral ID Status Reason Start Date Expiration Date V isits Requested Visits Authorized [id number] Closed Auto-Generate d Referral 12/26/2024 11/18/2025 1 1 Specialty Diagnoses / Procedures Referred By Marcy boudreaux Referred To Contact CT IMAGING Diagnoses Lung nodules Procedures CT LUNG FOLLOWUP WO IVCON DIAGNOSTIC COMPUTED TOMOGRAPHY THORAX W/O CNTRST Maricruz Camp, JAKI.RAILWAY TRACK PLANT OPERATOR [address] [place] [address] Phone: tel: fax: [place] [address] Referral ID Status Reason Start Date Expiration Date V isits Requested Visits Authorized [id number] Closed Auto-Generate d Referral 12/26/2024 11/18/2025 1 1 Reason Comments Hospital F[facility] COPD Reason Comments Hospital F/U Reason Comments BP Check Had appointment with cardiology yesterday; [facility] Dr. Elena Reason Comments Skin Rashes x 2 days mouth and n ose thick mucous x 1 week Reason Onset Date Comments Results 04/22/2025 Reason Comments increased confusion PT WAS PLACED O A NE W MEDS FOR HEART FLUTTER NOT SURE IF THIS COULD BE A SIDE EFFECT FROM MEDICATION Care Teams (unrecognized sec tion and content) Brush Painter Relationship Specialty Start Date End Date Phuc Martines, DO [address] [place] [address] PCP - General Family Practice 11/09/15 Brush Painter Relationship Specialty Start Date End Date Phuc Martines DO [address] [place] [address] PCP - General Family Practice 11/09/15 Brush Painter Relationship Specialty Start Date End Date Phuc Martines, DO [address] [facility] [place] [address] PCP - General Family Practice 11/09/15 Brush Painter Relationship Specialty Start Date End Date Phuc Martines DO [address] [place] [address] PCP - General Family Practice 11/09/15 Brush Painter Relationship Specialty Start Date End Date Phuc Martines DO [address] [place] [address] PCP - General Family Practice 11/09/15 Brush Painter Relationship Specialty Start Date End Date Phuc Martines, DO [address] [place] [address] PCP - General Family Practice 11/09/15 Brush Painter Relationship Specialty Start Date End Date Phuc Martines, DO [address] [place] [address] PCP - General Family Practice 11/09/15 Brush Painter Relationship Specialty Start Date End Date Phuc Martines, DO [address] [place] [address] PCP - General Family Practice 11/09/15 Brush Painter Relationship Specialty Start Date End Date Phuc Martines, DO [address] [place] [address] PCP - General Family Medicine 11/09/15 Brush Painter Relationship Specialty Start Date End Date Phuc Martines, DO [address] [place] [address] PCP - General Family Medicine 11/09/15 Brush Painter Relationship Specialty Start Date End Date Phuc Martines, DO [address] [place] [address] PCP - General Family Medicine 11/09/15 Brush Painter Relationship Specialty Start Date End Date Phuc Martines, DO [address] [place] [address] PCP - General Family Medicine 11/09/15 Brush Painter Relationship Specialty Start Date End Date Phuc Martines, DO [address] [place] [address] PCP - General Family Medicine 11/09/15 Brush Painter Relationship Specialty Start Date End Date Phuc Martines, DO [address] [place] [address] PCP - General Family Medicine 11/09/15 Brush Painter Relationship Specialty Start Date End Date Phuc Martines DO [address] [facility] [place] [address] PCP - General Family Medicine 11/09/15 Brush Painter Relationship Specialty Start Date End Date Phuc Martines DO [address] [facility] [place] [place] [address] PCP - General Family Medicine 11/09/15 Brush Painter Relationship Specialty Start Date End Date Phuc Martines DO [address] [facility] [place] [address] PCP - General Family Medicine 11/09/15 Brush Painter Relationship Specialty Start Date End Date Phuc Martines DO [address] [facility] [place] [address] PCP - General Family Medicine 11/09/15 Brush Painter Relationship Specialty Start Date End Date Phuc Martines DO [address] [facility] [place] [address] PCP - General Family Medicine 11/09/15 Brush Painter Relationship Specialty Start Date End Date Phuc Martines DO [address] [facility] [place] [address] PCP - General Family Medicine 11/09/15 Brush Painter Relationship Specialty Start Date End Date Phuc Martines DO [address] [facility] [place] [address] PCP - General Family Medicine 11/09/15 Brush Painter Relationship Specialty Start Date End Date Phuc Martines DO [address] [facility] [place] [address] PCP - General Family Medicine 11/09/15 Brush Painter Relationship Specialty Start Date End Date Phuc Martines DO [address] [facility] [place] [place] [address] PCP - General Family Medicine 11/09/15 Brush Painter Relationship Specialty Start Date End Date Phuc Martines DO [address] [facility] [place] [place] [address] PCP - General Family Medicine 11/09/15 Brush Painter Relationship Specialty Start Date End Date Phuc Martines DO [address] [facility] [place] [address] PCP - General Family Medicine 11/09/15 Brush Painter Relationship Specialty Start Date End Date Phuc Martines DO [address] [facility] [place] [address] PCP - General Family Medicine 11/09/15 Brush Painter Relationship Specialty Start Date End Date Phuc Martines DO [address] [facility] [place] [address] PCP - General Family Medicine 11/09/15 Brush Painter Relationship Specialty Start Date End Date Phuc Martines DO [address] [facility] [place] [address] PCP - General Family Medicine 11/09/15 Brush Painter Relationship Specialty Start Date End Date Phuc Martines DO [address] [facility] [place] [address] PCP - General Family Medicine 11/09/15 Brush Painter Relationship Specialty Start Date End Date Phuc Martines DO [address] [place] [address] PCP - General Family Medicine 11/09/15 Brush Painter Relationship Specialty Start Date End Date Phuc Martines DO [address] [place] [address] PCP - General Family Medicine 11/09/15 Hodan Christine PA-C [address] [place] [address] Pulmonary and Critical Care Medicine 10/11/23 Brush Painter Relationship Specialty Start Date End Date Phuc Martines DO [address] [place] [address] PCP - General Family Medicine 11/09/15 Hodan Christine PA-C [address] [place] [address] Pulmonary and Critical Care Medicine 10/11/23 Brush Painter Relationship Specialty Start Date End Date Phuc Martines DO [address] [place] [address] PCP - General Family Medicine 11/09/15 Hodan Christine PA-C [address] [facility] [place] [address] Pulmonary and Critical Care Medicine 10/11/23 Brush Painter Relationship Specialty Start Date End Date Phuc Martines DO [address] [place] [address] PCP - General Family Medicine 11/09/15 Hodan Christine PA-C [address] [facility] [place] [address] Pulmonary and Critical Care Medicine 10/11/23 Brush Painter Relationship Specialty Start Date End Date Phuc Martines DO [address] [facility] [place] [address] PCP - General Family Medicine 11/09/15 Hodan Christine PA-C [address] [facility] [place] [address] Pulmonary and Critical Care Medicine 10/11/23 Brush Painter Relationship Specialty Start Date End Date Phuc Martines DO [address] [facility] [place] [address] PCP - General Family Medicine 11/09/15 Hodan Christine PA-C [address] [facility] [place] [address] Pulmonary and Critical Care Medicine 10/11/23 Brush Painter Relationship Specialty Start Date End Date Phuc Martines DO [address] [facility] [place] [address] PCP - General Family Medicine 11/09/15 Hodan Christine PA-C [address] [facility] [place] [address] Pulmonary and Critical Care Medicine 10/11/23 Brush Painter Relationship Specialty Start Date End Date Phuc Martines DO [address] [facility] [place] [address] PCP - General Family Medicine 11/09/15 Brush Painter Relationship Specialty Start Date End Date Phuc Martines DO [address] [place] [address] PCP - General Family Medicine 11/09/15 Brush Painter Relationship Specialty Start Date End Date Phuc Martines DO [address] [place] [address] PCP - General Family Medicine 11/09/15 Hodan Christine PA-C [address] [place] [address] Pulmonary and Critical Care Medicine 10/11/23 Brush Painter Relationship Specialty Start Date End Date Phuc Martines DO [address] [place] [address] PCP - General Family Medicine 11/09/15 Hodan Christine PA-C [address] [place] [address] Pulmonary and Critical Care Medicine 10/11/23 Vicky Duong, JAKI.RAILWAY TRACK PLANT OPERATOR [address] [place] [address] Early Childhood Teacher Assistant Family Medicine 10/04/24 Pratibha King APRN.RAILWAY TRACK PLANT OPERATOR [address] [place] [address] Early Childhood Teacher Assistant Family Medicine 10/04/24 Brush Painter Relationship Specialty Start Date End Date Phuc Martines DO [address] [place] [address] PCP - General Family Medicine 11/09/15 Hodan Christine PA-C [address] [place] [address] Pulmonary and Critical Care Medicine 10/11/23 Vicky Duong, SHERIFF OFFICER.RAILWAY TRACK PLANT OPERATOR [address] [place] [address] [facility] 10/04/24 FernandoPratibha, SHERIFF OFFICER.RAILWAY TRACK PLANT OPERATOR [address] [place] [address] [facility] 10/04/24 Brush Painter Relationship Specialty Start Date End Date Phuc Martines DO [address] [place] [address] PCP - General Family Medicine 11/09/15 Hodan Christine PA-C [address] [place] [address] Pulmonary and Critical Care Medicine 10/11/23 Vicky Duong, SHERIFF OFFICER.RAILWAY TRACK PLANT OPERATOR [address] [place] [address] [facility] 10/04/24 FernandoPratibha, SHERIFF OFFICER.RAILWAY TRACK PLANT OPERATOR [address] [place] [address] [facility] 10/04/24 Brush Painter Relationship Specialty Start Date End Date Phuc Matrines DO [address] [place] [address] PCP - General Family Medicine 11/09/15 Hodan Christine PA-C [address] [place] [address] Pulmonary and Critical Care Medicine 10/11/23 Vicky Duong, SHERIFF OFFICER.RAILWAY TRACK PLANT OPERATOR [address] [place] [address] [facility] 10/04/24 FernandoPratibha, SHERIFF OFFICER.RAILWAY TRACK PLANT OPERATOR [address] [place] [address] [facility] 10/04/24 Brush Painter Relationship Specialty Start Date End Date Phuc Martines DO [address] [place] [address] PCP - General Family Medicine 11/09/15 Hodan Christine PA-C [address] [place] [address] Pulmonary and Critical Care Medicine 10/11/23 Vicky Duong, SHERIFF OFFICER.RAILWAY TRACK PLANT OPERATOR [address] [place] [address] [facility] 10/04/24 FernandoPratibha, SHERIFF OFFICER.RAILWAY TRACK PLANT OPERATOR [address] [facility] [place] [address] [facility] 10/04/24 Brush Painter Relationship Specialty Start Date End Date Phuc Martines DO [address] [facility] [place] [address] PCP - General Family Medicine 11/09/15 Hodan Christine PA-C [address] [place] [address] Pulmonary and Critical Care Medicine 10/11/23 Vicky Duong, SHERIFF OFFICER.RAILWAY TRACK PLANT OPERATOR [address] [place] [address] [facility] 10/04/24 FernandoPratibha, SHERIFF OFFICER.RAILWAY TRACK PLANT OPERATOR [address] [place] [address] [facility] 10/04/24 Brush Painter Relationship Specialty Start Date End Date Phuc Martines DO [address] [place] [address] PCP - General Family Medicine 11/09/15 Hodan Christine, LEAH-C [address] [place] [address] Pulmonary and Critical Care Medicine 10/11/23 Vicky Duong, SHERIFF OFFICER.RAILWAY TRACK PLANT OPERATOR [address] [place] [address] [facility] 10/04/24 FernandoPratibha, SHERIFF OFFICER.RAILWAY TRACK PLANT OPERATOR [address] [place] [address] [facility] 10/04/24 Brush Painter Relationship Specialty Start Date End Date Phuc Martines DO [address] [facility] [place] [address] PCP - General Family Medicine 11/09/15 Hodan Christine PA-C [address] [place] [address] Pulmonary and Critical Care Medicine 10/11/23 Vicky Duong, SHERIFF OFFICER.RAILWAY TRACK PLANT OPERATOR [address] [facility] [place] [address] [facility] 10/04/24 Pratibha King APRN.RAILWAY TRACK PLANT OPERATOR [address] [facility] [place] [place] [address] [facility] 10/04/24 Brush Painter Relationship Specialty Start Date End Date Phuc Martines DO [address] [facility] [place] [address] PCP - General Family Medicine 11/09/15 Hodan Christine, PA-C [address] [place] [address] Pulmonary and Critical Care Medicine 10/11/23 Vicky Duong, SHERIFF OFFICER.RAILWAY TRACK PLANT OPERATOR [address] [facility] [place] [address] [facility] 10/04/24 FernandoPratibha, SHERIFF OFFICER.RAILWAY TRACK PLANT OPERATOR [address] [facility] [place] [address] [facility] 10/04/24 Brush Painter Relationship Specialty Start Date End Date Phuc Martines DO [address] [facility] [place] [address] PCP - General Family Medicine 11/09/15 Hodan Christine PA-C [address] [place] [address] Pulmonary and Critical Care Medicine 10/11/23 Pratibha King, SHERIFF OFFICER.RAILWAY TRACK PLANT OPERATOR [address] [facility] [place] [address] [facility] 10/04/24 Brush Painter Relationship Specialty Start Date End Date Phuc Martines DO [address] [facility] [place] [address] PCP - General Family Medicine 11/09/15 Hodan Christine PA-C [address] [place] [address] Pulmonary and Critical Care Medicine 10/11/23 [facility] Hill[facility]atibha, SHERIFF OFFICER.RAILWAY TRACK PLANT OPERATOR [address] [facility] [place] [address] [facility] 10/04/24 Brush Painter Relationship Specialty Start Date End Date Phuc Martines DO [address] [facility] [place] [address] PCP - General Family Medicine 11/09/15 Hodan Christine PA-C [address] [place] [address] Pulmonary and Critical Care Medicine 10/11/23 [facility] HillGloriaah, SHERIFF OFFICER.RAILWAY TRACK PLANT OPERATOR [address] [facility] [place] [address] [facility] 10/04/24 Brush Painter Relationship Specialty Start Date End Date Phuc Martines DO [address] [facility] [place] [address] PCP - General Family Medicine 11/09/15 Hodan Christine PA-C [address] [facility] [place] [address] Pulmonary and Critical Care Medicine 10/11/23 FernandoPratibha APRN.RAILWAY TRACK PLANT OPERATOR [address] [place] [address] Early Childhood Teacher Assistant Family Medicine 10/04/24 Team Status: Active Member [...] Provider Active Start : February 23, 2025 Brush Painter Relationship Specialty Start Date End Date Phuc Martines DO [address] [place], [place] [id number] PCP - General Family Medicine 11/09/15 Hodan Christine PAKikeC [address] [place], [place] [address] Pulmonary and Critical Care Medicine 10/11/23 [facility] HillPratibha, SHERIFF OFFICER.RAILWAY TRACK PLANT OPERATOR [address] [place] [address] [facility] 10/04/24 Brush Painter Relationship Specialty Start Date End Date Phuc Martines DO [address] [place] [address] PCP - General Family Medicine 11/09/15 Hodan Christine, PA-C [address] [place] [address] Pulmonary and Critical Care Medicine 10/11/23 FernandoPratibha, SHERIFF OFFICER.RAILWAY TRACK PLANT OPERATOR [address] [place] [address] [facility] 10/04/24 Brush Painter Relationship Specialty Start Date End Date Phuc Martines DO [address] [place] [address] PCP - General Family Medicine 11/09/15 Hodan Christine, PA-C [address] [place] [address] Pulmonary and Critical Care Medicine 10/11/23 [facility] HillPratibha, SHERIFF OFFICER.RAILWAY TRACK PLANT OPERATOR [address] [place] [address] [facility] 10/04/24 Brush Painter Relationship Specialty Start Date End Date Phuc Martines DO [address] [place] [address] PCP - General Family Medicine 11/09/15 Hodan Christine PA-C [address] [place] [address] Pulmonary and Critical Care Medicine 10/11/23 [facility] HillPratibha, SHERIFF OFFICER.RAILWAY TRACK PLANT OPERATOR [address] [facility] [place] [address] [facility] 10/04/24 Brush Painter Relationship Specialty Start Date End Date Phuc Martines DO [address] [facility] [place] [place] [address] PCP - [facility] 11/09/15 Hodan Christine PA-C [address] [place] [address] Pulmonary and Critical Care Medicine 10/11/23 [facility] HillPratibha, SHERIFF OFFICER.RAILWAY TRACK PLANT OPERATOR [address] [facility] [place] [address] [facility] 10/04/24 Team Status: Inactive Member Role Status Dates Dr. Phuc Martines DO Primary Care Provider Active Start: March 30, 2025 End: March 30, 2025 Dr. Phuc Martines DO Referring Provider Active Start: March 30, 2025 End: March 30, 2025 Dr. Bryan Elena MD Attending Provider Active Start: March 30, 2025 End: March 30, 2025 Brush Painter Relationship Specialty Start Date End Date Phuc Martines DO [address] [facility] [place] [place] [address] PCP - [facility] 11/09/15 Hodan Christine PA-C [address] [place] [address] Pulmonary and Critical Care Medicine 10/11/23 Pratibha King, SHERIFF OFFICER.RAILWAY TRACK PLANT OPERATOR [address] [place], [place] [address] [phone] [facility] 10/04/24 Terrie Robledo, SHERIFF OFFICER.RAILWAY TRACK PLANT OPERATOR [address] [place], [place] [address] [phone] [facility] 04/12/25 Brush Painter Relationship Specialty Start Date End Date Phuc Martines DO [address] [place], [place] [address] [phone] PCP - General Family Medicine 11/09/15 Hodan Christine PA-C [address] [place], [place] [address] [phone] Pulmonary and Critical Care Medicine 10/11/23 Pratibha King, SHERIFF OFFICER.RAILWAY TRACK PLANT OPERATOR [address] [place], [place] 232[address] [phone] [facility] 10/04/24 Terrie Robledo, SHERIFF OFFICER.RAILWAY TRACK PLANT OPERATOR [address] [place], [place] [address] [facility] 04/12/25 Brush Painter Relationship Specialty Start Date End Date Phuc Martines DO [address] [place], [place] [address] PCP - General Family Medicine 11/09/15 Hodan Christine PA-C [address] [facility] [place], [place] [address] Pulmonary and Critical Care Medicine 10/11/23 Pratibha King, SHERIFF OFFICER.RAILWAY TRACK PLANT OPERATOR [address] [place] [address] [facility] 10/04/24 Terrie Robledo APRN.RAILWAY TRACK PLANT OPERATOR [address] [place] [address] [facility] 04/12/25 FOR RECORDS PERTAINING TO PATIENTS WHO [...] BE BASED ON THE PRIMARY CLINICAL RECORDS. [facility] [employer] [facility]. provides no warranty or guarantee of the accuracy or completeness of information in this document.
[2025-04-23 23:11] LABS: Magnesium 1.8 mg/dL (1.5-2.2)
[2025-04-23] MEDS: Potassium Chloride Oral Tablet 20 MEQ PO (23:14)
[2025-04-23] MEDS: 0.9% Saline Lock 10 ML Syringe IV (23:15)
[2025-04-23] MEDS: APIXABAN 5 MG TABLET PO (23:22)
[2025-04-23 23:37] LABS: Procalcitonin 0.14 ng/mL (<=0.10)
[2025-04-24] VITALS (31 sets, daily range): BP systolic 93–155; BP diastolic 58–100; PULSE 65–119; RESP 18–29; TEMP 36.4–37.3; O2SAT 89–99; BMI 43.8
[2025-04-24 00:31] LABS: Troponin T High Sens 4 HR < 6 ng/L (<=14)
--- NOTE | 2025-04-24 01:39 | NURSING ---
Verbal report received from Josh Stephenson RN. This RN assuming care at this time.
[2025-04-24] MEDS: Budesonide Respules 0.5 MG/2 ML AMPUL.NEB. INHALATION ×2 (06:24→20:29)
[2025-04-24 06:38] LABS: Hematocrit 37.8 % (37-47); Hemoglobin 11.5 g/dL (12.0-15.0); Immature Granulocytes Count 0.020 X10^3/uL (0.0-0.0); Mean Corp Hgb Conc 30.4 g/dL (32-36); Mean Corpuscular Volume 100.8 fL (81-99); Mean Platelet Vol. 10.9 fl (6.2-12.0); NRBC Flagged by Analyzer 0 % (0-5); POSITIVE DIFFERENTIAL YES; Platelet Count 276 K/mm3 (150-450); RBC Distribution Width CV 14.3 % (11.6-14.6); RBC Distribution Width SD 52.5 fl (35.1-43.9); Red Blood Count 3.75 M/mm3 (4.2-5.4); White Blood Count 8.5 K/mm3 (4.4-11.0)
[2025-04-24 07:08] LABS: AST(SGOT) 21 U/L (<=31); Alanine Aminotransfer ALT/SGPT 30 U/L (<=34); Albumin, Serum 3.3 g/dL (3.4-4.8); Alkaline Phosphatase 112 U/L (35-104); Anion Gap 8 (5-15); BUN 13 mg/dL (4-19); BUN/Creat Ratio 20.9 RATIO (10-20); Calcium,Total 9.4 mg/dL (7.6-11.0); Carbon Dioxide 38.0 mmol/L (21.0-32.0); Chloride 100 mmol/L (98-108); Estimated Creatinine Clearance 85.25 ml/min (50-250); Globulin 3.3 g/dL (2.2-4.2); Glucose 144 mg/dL (70-99); Potassium 4.6 mmol/L (3.3-5.1)
[2025-04-24 07:24] LABS: Cholesterol 138 mg/dL (<=200); Low Density Lipoprotein Calc. 81 mg/dL; Triglycerides 93 mg/dL; Very Low Density Lipoprotein 19 mg/dL (5-40); cholesterol:hdl ratio screen 3.62
[2025-04-24] MEDS: Thiamine Hydrochloride 100 MG Tablet PO (07:43)
--- NOTE | 2025-04-24 08:10 | PCM.PN.HOSP ---
Reason for Visit Reason for Visit: Diagnoses Unspecified atrial flutter (04/23/25) Objective Data Objective Data Vital Signs: Vital Signs Temp Pulse Resp BP Pulse Ox O2 Del Method O2 Flow Rate 99.0 F 99 25 H 124/89 H 89 Nasal Cannula 6 04/24/25 03:00 04/24/25 07:42 04/24/25 07:00 04/24/25 07:42 04/24/25 07:00 04/24/25 07:00 04/24/25 07:00 Oxygen Flow Rate (L/min) 6 Oxygen Delivery Method Nasal Cannula Weight: 255 lb 4.725 oz Body Mass Index (BMI) 43.8 Intake & Output: Intake and Output for Last 24 Hours 04/22/25 04/23/25 04/24/25 23:59 23:59 23:59 Intake Total 11.08 / 13.58 303.16 / 303.16 Output Total 700 / 700 Balance 11.08 / -386.42 -396.84 / -396.84 Lab / Micro Data 04/24/25 05:42 04/24/25 05:42 Labs: Laboratory Results - last 24 hr 04/23/25 17:50: WBC 9.0, RBC 4.07 L, Hgb 12.7, Hct 40.2, MCV 98.8, MCH 31.2, MCHC 31.6 L, RDW Std Deviation 51.3 H, RDW Coeff of Karly 14.2, Plt Count 285, MPV 10.4, Immature Gran % (Auto) 0.300, Neut % (Auto) 83.8 H, Lymph % (Auto) 7.9 L, [place] % (Auto) 6.6, Eos % (Auto) 0.8, Baso % (Auto) 0.6, Absolute Neuts (auto) 7.6, Absolute Lymphs (auto) 0.71 L, Nucleated RBC % 0, Sodium 145, Potassium 3.9, Chloride 96 L, Carbon Dioxide 38.0 H, Anion Gap 10, BUN 14, Creatinine 0.65 L, Estim Creat Clear Calc 85.20, Est GFR (MDRD) Non-Af 97, BUN/Creatinine Ratio 22.2 H, Glucose 110 H, Calcium 9.6, Phosphorus 3.6, Magnesium 1.8, Troponin T High Sens < 6, Procalcitonin 0.14 H 04/23/25 19:50: Urine Color Yellow, Urine Clarity Clear, Urine pH 6.0, Ur Specific [place] 1.015, Urine Protein 30 H, Urine Glucose (UA) Normal, Urine Ketones 50 H, Urine Occult Blood Negative, Urine Nitrite Negative, Urine Bilirubin 1 H, Urine Urobilinogen 1 H, Ur Leukocyte Esterase 25 H, Urine RBC 0 SEEN, Urine WBC 10-25 SEEN, Ur Squamous Epith Cells 5-10 SEEN, Urine Bacteria 2+, Urine Mucus 2+ 04/23/25 19:55: Troponin T Hi Sens 2 Hr < 6 04/23/25 23:35: Troponin T Hi Sens 4Hr < 6 04/24/25 05:42: WBC 8.5, RBC 3.75 L, Hgb 11.5 L, Hct 37.8, MCV 100.8 H, MCH 30.7, MCHC 30.4 L, RDW Std Deviation 52.5 H, RDW Coeff of Karly 14.3, Plt Count 276, MPV 10.9, Immature Gran % (Auto) 0.200, Neut % (Auto) 83.2 H, Lymph % (Auto) 6.8 L, [place] % (Auto) 8.0, Eos % (Auto) 1.3, Baso % (Auto) 0.5, Absolute Neuts (auto) 7.1, Absolute Lymphs (auto) 0.58 L, Nucleated RBC % 0, Sodium 146 H, Potassium 4.6, Chloride 100, Carbon Dioxide 38.0 H, Anion Gap 8, BUN 13, Creatinine 0.63 L, Estim Creat Clear Calc 85.25, Est GFR (MDRD) Non-Af 97, BUN/Creatinine Ratio 20.9 H, Glucose 144 H, Calcium 9.4, Total Bilirubin 0.44, AST 21, ALT 30, Alkaline Phosphatase 112 H, Total Protein 6.6, Albumin 3.3 L, Globulin 3.3, Albumin/Globulin Ratio 1.0, Triglycerides 93, Cholesterol 138, LDL Cholesterol, Calc 81, VLDL Cholesterol 19, HDL Cholesterol 38 L, Cholesterol/HDL Ratio 3.62, TSH 1.970 Micro: Microbiology 04/24/25 01:36 Mucosa - Nasopharyngeal Respiratory Panel (PCR) - Final Radiography Diagnostic Testing: Radiology Impression Chest X-Ray 04/23/25 17:37 IMPRESSION: Cardiomegaly with mild congestion. Reading Location: [facility] Brain CT 04/23/25 18:04 IMPRESSION: 1. No acute intracranial hemorrhage, midline shift or mass effect. If symptoms persist, further evaluation with MRI is recommended. 2. Mild small vessel ischemic/degenerative changes. Reading Location: [facility] Physical Exam Narrative Seen and examined. Patient admitted for SOB and, rapid heart rate, new onset atrial flutter, COPD on 3 to 6 L of oxygen at baseline and chronic alcohol use. Scheduled with tank riveter for possible ablation. Patient was also having fever and PCP concern for UTI Currently on 6 L of oxygen Physical exam General: Alert, Oriented x3, Cooperative HEENT: Atraumatic, PERRLA, EOMI, Normocephalic. Oral: No Gingival or Mucosal Lesions/ Ulcerations Neck: Supple, No JVD, Negative Carotid Bruits Chest wall/Lungs: Air entry severely diminished in all lung yu. Silent chest Cardiovascular: Regular rate and rhythm, Normal S1,S2, No M/G/R Abdomen: Bowel Sounds Present, Soft, Non Tender, Non-Distended : No dysuria. No renal angle tenderness. No suprapubic tenderness. Extremities: Mild 1-2+ pitting edema, Capillary Refill Less than 3 Seconds Skin: No rashes, No breakdown Musculoskeletal: No Tenderness to Palpation of Joints or Extremities. ROM restricted Neurological: Cranial nerves II-XII grossly intact, DTR 2+/4. No acute focal neurological deficit. Psych/Mental Status: Normal Affect, Appropriate. Assessment & Plan Assessment/Plan (1) Atrial flutter with rapid ventricular response: PLAN: Plan The patient is a 69 y/o F admitted with fever 102 Fahrenheit on Saturday, URI symptoms nasal congestion, shortness of breath/dyspnea on her baseline 3 to 6 L of oxygen because of COPD and chronic alcohol use. No recent cough. There is concerned of UTI therefore was started on Macrobid but later on urine culture came back negative. She was tachycardic heart rate about 129 bpm in PCP office and was sent for admission. Denies chest pain abdominal pain nausea and vomiting #1. Mild COPD exacerbation from suspected viral infection: Patient is being admitted in the PCU. Currently on 6 L of oxygen. Patient is being managed on scheduled bronchodilator, Pulmicort aerosol twice daily, Mucinex, incentive spirometry and Pep. #2. Paroxsymal atrial flutter w/ RVR due to acute on chronic HFpEF: EKG in ED w/ atrial flutter w/ RVR. Patient administered Cardizem bolus and eventually placed on a drip in ED. Was started on Cardizem drip. Continue Eliquis. Cardizem drip is being tapered off, started on Cardizem 60 mg Q6 hourly. Recent echo on 02/19/2025 with borderline LV systolic function with LVEF 45 to 50%, moderate global RV systolic dysfunction, mild biatrial dilatation, moderate MVI, mild TBI, RVSP 53 mmHg Chest x-ray shows cardiomegaly and mild fluid congestion. Furosemide 40 mg IV twice daily #3. UTI ruled out and possible Macrobid allergic: Patient was started on Macrobid for concern of UTI but she developed a rash therefore was discontinued. Urine culture also negative therefore UTI ruled out #4. EtOH Abuse, recently cutting back: Currently she drinks 2/day, total 14 drinks weekly and therefore advised to quit it. She was also told by her tank riveter Dr. Bryan Elena to be cautious will maintain on CIWA protocol, MVI, thiamine and folic acid. #5. Hypertension: Continue home regimen including Lasix, metoprolol, as needed hydralazine #6. Hyperlipidemia: Triglycerides 93, Cholesterol 138, LDL Cholesterol, Calc 81, VLDL Cholesterol 19, HDL Cholesterol 38 L, Cholesterol/HDL Ratio 3.62, TSH 1.970. Started on atorvastatin 20 mg daily. #7. Morbid Obesity: Weight loss and lifestyle changes encouraged. #8. History of VTE: Patient with history of DVT, PE, continue Eliquis home regimen. #9. She quit smoking about 10 years ago. Total more than 40 pack years of a smoker #10. ROXY: Patient reports that she only uses supplemental oxygen, no PAP therapy. Follows manager insurance Dr. Diana hawk #11. DVT prophylaxis: Will continue patient on Eliquis regimen. #12. CODE status: Patient ARACELI is her daughter and living will is currently in place. Discussed CODE status at length including difference between FULL code, DNR-CCA and DNR-CC status. Following discussions about the differences in these status, requested Full Code status. Microbiology Past 72 Hours 04/24/25 01:36 Mucosa - Nasopharyngeal Respiratory Panel (PCR) - Final Laboratory Results 04/23/25 17:50: WBC 9.0, RBC 4.07 L, Hgb 12.7, Hct 40.2, MCV 98.8, MCH 31.2, MCHC 31.6 L, RDW Std Deviation 51.3 H, RDW Coeff of Karly 14.2, Plt Count 285, MPV 10.4, Immature Gran % (Auto) 0.300, Neut % (Auto) 83.8 H, Lymph % (Auto) 7.9 L, [place] % (Auto) 6.6, Eos % (Auto) 0.8, Baso % (Auto) 0.6, Absolute Neuts (auto) 7.6, Absolute Lymphs (auto) 0.71 L, Nucleated RBC % 0, Sodium 145, Potassium 3.9, Chloride 96 L, Carbon Dioxide 38.0 H, Anion Gap 10, BUN 14, Creatinine 0.65 L, Estim Creat Clear Calc 85.20, Est GFR (MDRD) Non-Af 97, BUN/Creatinine Ratio 22.2 H, Glucose 110 H, Calcium 9.6, Phosphorus 3.6, Magnesium 1.8, Troponin T High Sens < 6, Procalcitonin 0.14 H 04/23/25 19:50: Urine Color Yellow, Urine Clarity Clear, Urine pH 6.0, Ur Specific [place] 1.015, Urine Protein 30 H, Urine Glucose (UA) Normal, Urine Ketones 50 H, Urine Occult Blood Negative, Urine Nitrite Negative, Urine Bilirubin 1 H, Urine Urobilinogen 1 H, Ur Leukocyte Esterase 25 H, Urine RBC 0 SEEN, Urine WBC 10-25 SEEN, Ur Squamous Epith Cells 5-10 SEEN, Urine Bacteria 2+, Urine Mucus 2+ 04/23/25 19:55: Troponin T Hi Sens 2 Hr < 6 04/23/25 23:35: Troponin T Hi Sens 4Hr < 6 04/24/25 05:42: WBC 8.5, RBC 3.75 L, Hgb 11.5 L, Hct 37.8, MCV 100.8 H, MCH 30.7, MCHC 30.4 L, RDW Std Deviation 52.5 H, RDW Coeff of Karly 14.3, Plt Count 276, MPV 10.9, Immature Gran % (Auto) 0.200, Neut % (Auto) 83.2 H, Lymph % (Auto) 6.8 L, [place] % (Auto) 8.0, Eos % (Auto) 1.3, Baso % (Auto) 0.5, Absolute Neuts (auto) 7.1, Absolute Lymphs (auto) 0.58 L, Nucleated RBC % 0, Sodium 146 H, Potassium 4.6, Chloride 100, Carbon Dioxide 38.0 H, Anion Gap 8, BUN 13, Creatinine 0.63 L, Estim Creat Clear Calc 85.25, Est GFR (MDRD) Non-Af 97, BUN/Creatinine Ratio 20.9 H, Glucose 144 H, Calcium 9.4, Total Bilirubin 0.44, AST 21, ALT 30, Alkaline Phosphatase 112 H, Total Protein 6.6, Albumin 3.3 L, Globulin 3.3, Albumin/Globulin Ratio 1.0, Triglycerides 93, Cholesterol 138, LDL Cholesterol, Calc 81, VLDL Cholesterol 19, HDL Cholesterol 38 L, Cholesterol/HDL Ratio 3.62, TSH 1.970 Charges/Coding Visit Charges Inpatient E&M: 13057 Subs Hosp L2
[2025-04-24] MEDS: APIXABAN 5 MG TABLET PO ×2 (09:17→21:16)
[2025-04-24] MEDS: Potassium Chloride Oral Tablet 20 MEQ PO ×2 (09:18→21:16)
[2025-04-24] MEDS: 0.9% Saline Lock 10 ML Syringe IV (09:19)
--- NOTE | 2025-04-24 12:37 | CASEMGMT ---
Addendum entered by Tierra Blackburn 04/24/25 12:48: Social Work SW spoke w/pt about her home oxygen concentrator, she is fairly certain it goes up to 10LPM. ELIDA Lind Original Note: Social Work SW met w/pt in regard to prior level of function, and anticipated discharge plan. PCP: Dr. Martines Specialists: Dr. Nelson--pulmonology, Dr. Elena--cardiology. Pt states Dr. Elena is referring her to Dr. Carpio(she thinks) as he is a cylinder handler that deals w/electrical problems. Insurance: Medicare, [employer], has prescription coverage Preferred Pharmacy: [facility] in [place] LW/POA: On file, daughter is POA LNOK: Daughter Living arrangements/prior level of function: Pt lives home alone in a single story home with one step to enter. Pt is independent with all ADLS at home. Pt drives or friends help w/transportation. DME/HHC/SNF: Pt has grab bars, walker, nebulizer, pulse ox, home O2 with portability. Pt uses 3.5lpm at rest, 6lpm w/exertion. Oxygen provider is [facility]. Pt has not had HHC, has never needed rehab in a SNF. Plan: Home, pt does not anticipate any homegoing needs. SW did ask pt about her alcohol intake. She states she drinks a couple of mixed drinks per day. She states that she does not any resources in regard to her drinking. SW remains available should and homegoing needs arise. ELIDA Lind
[2025-04-25] VITALS (10 sets, daily range): BP systolic 92–129; BP diastolic 55–84; PULSE 60–100; RESP 16–24; TEMP 36.6–37.2; O2SAT 91–97; BMI 43.1
[2025-04-25 06:29] LABS: Hematocrit 39.3 % (37-47); Hemoglobin 11.9 g/dL (12.0-15.0); Immature Granulocytes Count 0.030 X10^3/uL (0.0-0.0); Mean Corp Hgb Conc 30.3 g/dL (32-36); Mean Corpuscular Volume 102.1 fL (81-99); Mean Platelet Vol. 10.1 fl (6.2-12.0); NRBC Flagged by Analyzer 0 % (0-5); POSITIVE DIFFERENTIAL YES; Platelet Count 286 K/mm3 (150-450); RBC Distribution Width CV 14.5 % (11.6-14.6); RBC Distribution Width SD 54.5 fl (35.1-43.9); Red Blood Count 3.85 M/mm3 (4.2-5.4); White Blood Count 8.7 K/mm3 (4.4-11.0)
[2025-04-25] MEDS: Budesonide Respules 0.5 MG/2 ML AMPUL.NEB. INHALATION ×2 (06:37→19:48)
[2025-04-25 06:55] LABS: Anion Gap 9 (5-15); BUN 17 mg/dL (4-19); BUN/Creat Ratio 25.0 RATIO (10-20); Calcium,Total 9.3 mg/dL (7.6-11.0); Carbon Dioxide 36.5 mmol/L (21.0-32.0); Chloride 95 mmol/L (98-108); Estimated Creatinine Clearance 84.48 ml/min (50-250); Glucose 130 mg/dL (70-99); Potassium 4.3 mmol/L (3.3-5.1)
[2025-04-25] MEDS: Thiamine Hydrochloride 100 MG Tablet PO (07:53)
--- NOTE | 2025-04-25 09:03 | PCM.PN.HOSP ---
Reason for Visit Reason for Visit: Diagnoses Unspecified atrial flutter (04/23/25) Objective Data Objective Data Vital Signs: Vital Signs Temp Pulse Resp BP Pulse Ox O2 Del Method O2 Flow Rate 98.5 F 86 18 129/66 H 91 Nasal Cannula 5 04/25/25 05:38 04/25/25 06:38 04/25/25 06:38 04/25/25 05:38 04/25/25 06:38 04/25/25 07:55 04/25/25 07:55 Oxygen Flow Rate (L/min) 5 Oxygen Delivery Method Nasal Cannula Weight: 251 lb 5.231 oz Body Mass Index (BMI) 43.1 Intake & Output: Intake and Output for Last 24 Hours 04/23/25 04/24/25 04/25/25 23:59 23:59 23:59 Intake Total 11.08 / 13.58 853.16 / 853.16 75 / 75 Output Total 700 / 700 Balance 11.08 / -386.42 153.16 / 153.16 75 / 75 Lab / Micro Data 04/25/25 06:18 04/25/25 06:18 Labs: Laboratory Results - last 24 hr 04/25/25 06:18: WBC 8.7, RBC 3.85 L, Hgb 11.9 L, Hct 39.3, MCV 102.1 H, MCH 30.9, MCHC 30.3 L, RDW Std Deviation 54.5 H, RDW Coeff of Karly 14.5, Plt Count 286, MPV 10.1, Immature Gran % (Auto) 0.300, Neut % (Auto) 85.7 H, Lymph % (Auto) 6.3 L, Dixon % (Auto) 6.2, Eos % (Auto) 1.0, Baso % (Auto) 0.5, Absolute Neuts (auto) 7.5, Absolute Lymphs (auto) 0.55 L, Nucleated RBC % 0, Sodium 141, Potassium 4.3, Chloride 95 L, Carbon Dioxide 36.5 H, Anion Gap 9, BUN 17, Creatinine 0.67 L, Estim Creat Clear Calc 84.48, Est GFR (MDRD) Non-Af 96, BUN/Creatinine Ratio 25.0 H, Glucose 130 H, Calcium 9.3 Micro: Microbiology 04/24/25 01:36 Mucosa - Nasopharyngeal Respiratory Panel (PCR) - Final Physical Exam Narrative Seen and examined. Shortness of breath is better. Heart rate also controlled, A-fib in the low 100s. Currently on 5 L of oxygen Patient was admitted for SOB and, rapid heart rate, new onset atrial flutter, COPD on 3 to 6 L of oxygen at baseline and chronic alcohol use. Scheduled with fish farmer for possible ablation. Patient was also having fever and PCP concern for UTI Physical exam General: Alert, Oriented x3, Cooperative HEENT: Atraumatic, PERRLA, EOMI, Normocephalic. Oral: No Gingival or Mucosal Lesions/ Ulcerations Neck: Supple, No JVD, Negative Carotid Bruits Chest wall/Lungs: Air entry diminished in all lung yu but improved compared to yesterday. Bilateral expiratory rhonchi Cardiovascular: Irregular rate and rhythm, Normal S1,S2, systolic murmur Abdomen: Bowel Sounds Present, Soft, Non Tender, Non-Distended : No dysuria. No renal angle tenderness. No suprapubic tenderness. Extremities: Mild 1+ pitting edema, Capillary Refill Less than 3 Seconds Skin: No rashes, No breakdown Musculoskeletal: No Tenderness to Palpation of Joints or Extremities. ROM restricted Neurological: Cranial nerves II-XII grossly intact, DTR 2+/4. No acute focal neurological deficit. Psych/Mental Status: Normal Affect, Appropriate. Assessment & Plan Assessment/Plan (1) Atrial flutter with rapid ventricular response: PLAN: Plan The patient is a 69 y/o F admitted with fever 102 Fahrenheit on Saturday, URI symptoms nasal congestion, shortness of breath/dyspnea on her baseline 3 to 6 L of oxygen because of COPD and chronic alcohol use. No recent cough. There is concerned of UTI therefore was started on Macrobid but later on urine culture came back negative. She was tachycardic heart rate about 129 bpm in PCP office and was sent for admission. Denies chest pain abdominal pain nausea and vomiting #1. Mild COPD exacerbation from suspected viral infection: Patient is being admitted in the PCU. Currently on 6 L of oxygen. Patient is being managed on scheduled bronchodilator, Pulmicort aerosol twice daily, Mucinex, incentive spirometry and Pep. 04/25: Air entry has improved compared to yesterday. Continue bronchodilator treatment. #2. Paroxsymal atrial flutter w/ RVR due to acute on chronic HFpEF: EKG in ED w/ atrial flutter w/ RVR. Patient administered Cardizem bolus and eventually placed on a drip in ED. Was started on Cardizem drip. Continue Eliquis. Cardizem drip is being tapered off, started on Cardizem 60 mg Q6 hourly. Recent echo on 02/19/2025 with borderline LV systolic function with LVEF 45 to 50%, moderate global RV systolic dysfunction, mild biatrial dilatation, moderate MVI, mild TBI, RVSP 53 mmHg Chest x-ray shows cardiomegaly and mild fluid congestion. Furosemide 40 mg IV twice daily 04/25: Heart rate is better controlled and 100s. Cardizem 60 mg Q6 hourly changed to Cardizem CD 120 mg Q12 hourly. Continue IV diuresis #3. UTI ruled out and possible Macrobid allergic: Patient was started on Macrobid for concern of UTI but she developed a rash therefore was discontinued. Urine culture also negative therefore UTI ruled out #4. EtOH Abuse, recently cutting back: Currently she drinks 2/day, total 14 drinks weekly and therefore advised to quit it. She was also told by her fish farmer Dr. Bryan Elena to be cautious will maintain on CIWA protocol, MVI, thiamine and folic acid. #5. Hypertension: Continue home regimen including Lasix, metoprolol, as needed hydralazine #6. Hyperlipidemia: Triglycerides 93, Cholesterol 138, LDL Cholesterol, Calc 81, VLDL Cholesterol 19, HDL Cholesterol 38 L, Cholesterol/HDL Ratio 3.62, TSH 1.970. Started on atorvastatin 20 mg daily. #7. Morbid Obesity: Weight loss and lifestyle changes encouraged. #8. History of VTE: Patient with history of DVT, PE, continue Eliquis home regimen. #9. She quit smoking about 10 years ago. Total more than 40 pack years of a smoker #10. ROXY: Patient reports that she only uses supplemental oxygen, no PAP therapy. Follows information systems administrator Dr. Diana hawk #11. DVT prophylaxis: Will continue patient on Eliquis regimen. #12. CODE status: Patient ARACELI is her daughter and living will is currently in place. Discussed CODE status at length including difference between FULL code, DNR-CCA and DNR-CC status. Following discussions about the differences in these status, requested Full Code status. Microbiology Past 72 Hours 04/24/25 01:36 Mucosa - Nasopharyngeal Respiratory Panel (PCR) - Final Laboratory Results 04/25/25 06:18: WBC 8.7, RBC 3.85 L, Hgb 11.9 L, Hct 39.3, MCV 102.1 H, MCH 30.9, MCHC 30.3 L, RDW Std Deviation 54.5 H, RDW Coeff of Karly 14.5, Plt Count 286, MPV 10.1, Immature Gran % (Auto) 0.300, Neut % (Auto) 85.7 H, Lymph % (Auto) 6.3 L, Dixon % (Auto) 6.2, Eos % (Auto) 1.0, Baso % (Auto) 0.5, Absolute Neuts (auto) 7.5, Absolute Lymphs (auto) 0.55 L, Nucleated RBC % 0, Sodium 141, Potassium 4.3, Chloride 95 L, Carbon Dioxide 36.5 H, Anion Gap 9, BUN 17, Creatinine 0.67 L, Estim Creat Clear Calc 84.48, Est GFR (MDRD) Non-Af 96, BUN/Creatinine Ratio 25.0 H, Glucose 130 H, Calcium 9.3 04/24/25 05:42: Sodium 146 H, Potassium 4.6, Chloride 100, Carbon Dioxide 38.0 H, Anion Gap 8, BUN 13, Creatinine 0.63 L, Estim Creat Clear Calc 85.25, Est GFR (MDRD) Non-Af 97, BUN/Creatinine Ratio 20.9 H, Glucose 144 H, Calcium 9.4, Total Bilirubin 0.44, AST 21, ALT 30, Alkaline Phosphatase 112 H, Total Protein 6.6, Albumin 3.3 L, Globulin 3.3, Albumin/Globulin Ratio 1.0, Triglycerides 93, Cholesterol 138, LDL Cholesterol, Calc 81, VLDL Cholesterol 19, HDL Cholesterol 38 L, Cholesterol/HDL Ratio 3.62, TSH 1.970 Charges/Coding Visit Charges Inpatient E&M: 88309 Subs Hosp L2
[2025-04-25] MEDS: APIXABAN 5 MG TABLET PO ×2 (11:51→21:16)
[2025-04-25] MEDS: Potassium Chloride Oral Tablet 20 MEQ PO ×2 (11:52→21:16)
[2025-04-25] MEDS: guaiFENesin/D-Methorphan TAB.SR.12H 2 TABLET PO ×2 (11:54→21:17)
[2025-04-25] MEDS: Ipratropium 0.5 MG/2.5 ML SOLUTION INHALATION (19:48)
[2025-04-26] VITALS (18 sets, daily range): BP systolic 98–129; BP diastolic 53–81; PULSE 83–129; RESP 15–20; TEMP 36.3–37.2; O2SAT 82–99; BMI 43.9
[2025-04-26 06:47] LABS: Hematocrit 38.8 % (37-47); Hemoglobin 11.6 g/dL (12.0-15.0); Immature Granulocytes Count 0.060 X10^3/uL (0.0-0.0); Mean Corp Hgb Conc 29.9 g/dL (32-36); Mean Corpuscular Volume 102.9 fL (81-99); Mean Platelet Vol. 11.1 fl (6.2-12.0); NRBC Flagged by Analyzer 0 % (0-5); POSITIVE DIFFERENTIAL YES; Platelet Count 266 K/mm3 (150-450); RBC Distribution Width CV 14.3 % (11.6-14.6); RBC Distribution Width SD 54.2 fl (35.1-43.9); Red Blood Count 3.77 M/mm3 (4.2-5.4); White Blood Count 9.2 K/mm3 (4.4-11.0)
[2025-04-26] MEDS: Ipratropium 0.5 MG/2.5 ML SOLUTION INHALATION ×4 (07:00→20:27)
[2025-04-26] MEDS: Budesonide Respules 0.5 MG/2 ML AMPUL.NEB. INHALATION (07:01)
[2025-04-26 07:14] LABS: Anion Gap 8 (5-15); BUN 23 mg/dL (4-19); BUN/Creat Ratio 32.1 RATIO (10-20); Calcium,Total 9.4 mg/dL (7.6-11.0); Carbon Dioxide 37.1 mmol/L (21.0-32.0); Chloride 96 mmol/L (98-108); Estimated Creatinine Clearance 85.43 ml/min (50-250); Glucose 125 mg/dL (70-99); Potassium 4.6 mmol/L (3.3-5.1)
--- NOTE | 2025-04-26 08:02 | PCM.DC ---
Discharge Instructions Follow Up Care Test Results: Test results from this visit will be discussed in further detail at your follow-up appointment, if applicable. Discharge Plan Admission Admit Date/Time: 04/23/25 21:51 Attending Provider: George Polanco Primary Care Provider: Phuc Martines Consulting Providers: Virginia Henriquez Discharge Orders/Prescriptions Prescriptions: No Action cinnamon bark [Cinnamon] 500 mg capsule 500 mg PO QDAY mecobalamin (vitamin B12) 1,000 mcg tablet,chewable 1,000 mcg PO QDAY Oxygen, Home [Home Oxygen] 2 - 4 lpm NASAL QHS ascorbic acid (vitamin C) 500 mg capsule 500 mg PO DAILY PRN (Reason: supplement) Patient Comments: only takes in winter albuterol sulfate 90 mcg/actuation aerosol powdr breath activated 2 inh inhalation Q6H PRN (Reason: shortness of breath) Trelegy Ellipta 200-62.5-25 mcg blister with device 1 ea inhalation DAILY ipratropium-albuterol 0.5 mg-3 mg(2.5 mg base)/3 mL solution for nebulization 3 ml inhalation Q6H PRN (Reason: shortness of breath) multivitamin [Daily Multi-Vitamin] Tablet 1 tab PO DAILY [place] Saline 0.65 % aerosol,spray 1 spray intranasal BID PRN (Reason: dry nasal passages) guaifenesin [Mucus Relief ER] 1,200 MG tablet 1,200 mg PO BID PRN (Reason: cough) metoprolol tartrate 50 mg Tablet 50 mg PO BID Qty: 60 2RF furosemide 40 mg tablet 40 mg PO BID Qty: 60 2RF potassium chloride [Klor-Con M20] 20 mEq tablet,ER particles/crystals 20 meq PO BID Qty: 60 2RF Eliquis 5 mg Tablet 5 mg PO BID Qty: 60 2RF nitrofurantoin monohyd/m-cryst 100 mg capsule 1 cap PO BID nystatin 100,000 unit/gram cream 1 applic topical BID Referrals / Follow Up: Phuc Martines DO [Primary Care Provider] -
[2025-04-26] MEDS: Thiamine Hydrochloride 100 MG Tablet PO (09:16)
[2025-04-26] MEDS: APIXABAN 5 MG TABLET PO ×2 (09:17→22:32)
[2025-04-26] MEDS: Potassium Chloride Oral Tablet 20 MEQ PO ×2 (09:17→22:32)
--- NOTE | 2025-04-26 09:19 | PCM.DC ---
Discharge Instructions Diet Discharge Diet: Low fat / Low cholesterol and 2000 mg Sodium Diet DC O2, CPAP, BIPAP needs Home O2 Discharge instructions: Yes Type of respiratory needs?: Oxygen Oxygen frequency: Continuous Continuous oxygen liters per minute: 5 Dressing / Incision Discharge Activity: Return to Normal Activity Weight Bearing Status: Weight bearing as tolerated Dressing / Incision Call your doctor if you observe: Fever of 101 or Higher, Coldness, Increased Pain, Numbness or Tingling, Change in Color, Inability to urinate, Inability to have a bowel movement, Shortness of breath, Dizziness, Fainting spells, Swelling in the ankles, Chest pain, Prolonged hiccupping, Increased palpitations (irregular heartbeat) and Calf discomfort Follow Up Care When: IN 2 WEEKS Test Results: Test results from this visit will be discussed in further detail at your follow-up appointment, if applicable. Discharge Plan Admission Admit Date/Time: 04/23/25 21:51 Primary Reason for Your Visit: A-fib RVR/CHF exacerbation Attending Provider: George Polanco Primary Care Provider: Phuc Martines Consulting Providers: Virginia Henriquez Discharge Orders/Prescriptions Prescriptions: New atorvastatin 40 mg Tablet 40 mg PO QHS 30 Days Qty: 30 2RF diltiazem HCl 180 mg Capsule,Extended Release 24hr 180 mg PO Q12 30 Days Qty: 60 1RF Continued cinnamon bark [Cinnamon] 500 mg capsule 500 mg PO QDAY mecobalamin (vitamin B12) 1,000 mcg tablet,chewable 1,000 mcg PO QDAY Oxygen, Home [Home Oxygen] 2 - 4 lpm NASAL QHS ascorbic acid (vitamin C) 500 mg capsule 500 mg PO DAILY PRN (Reason: supplement) Patient Comments: only takes in winter albuterol sulfate 90 mcg/actuation aerosol powdr breath activated 2 inh inhalation Q6H PRN (Reason: shortness of breath) Trelegy Ellipta 200-62.5-25 mcg blister with device 1 ea inhalation DAILY ipratropium-albuterol 0.5 mg-3 mg(2.5 mg base)/3 mL solution for nebulization 3 ml inhalation Q6H PRN (Reason: shortness of breath) multivitamin [Daily Multi-Vitamin] Tablet 1 tab PO DAILY [place] Saline 0.65 % aerosol,spray 1 spray intranasal BID PRN (Reason: dry nasal passages) guaifenesin [Mucus Relief ER] 1,200 MG tablet 1,200 mg PO BID PRN (Reason: cough) metoprolol tartrate 50 mg Tablet 50 mg PO BID Qty: 60 2RF furosemide 40 mg tablet 40 mg PO BID Qty: 60 2RF potassium chloride [Klor-Con M20] 20 mEq tablet,ER particles/crystals 20 meq PO BID Qty: 60 2RF Eliquis 5 mg Tablet 5 mg PO BID Qty: 60 2RF nystatin 100,000 unit/gram cream 1 applic topical BID Discontinued nitrofurantoin monohyd/m-cryst 100 mg capsule 1 cap PO BID Referrals / Follow Up: Mercy Purvis MD [Med Staff - Active Staff] - Within 1 Month Phuc Martines DO [Primary Care Provider] - Within 2 Weeks Irina Elam PA [Med Staff - Adv Practice Prof] - Within 2 Weeks Yonathan Nelson DO [Med Staff - Active Staff] - Within 1 Month (Respiratory failure, COPD on oxygen) Disposition Disposition (needs filled in before D/C Order can be placed): Home, Self Care
--- NOTE | 2025-04-26 09:32 | PCM.DC.SUM ---
Providers Date of Admission: 04/23/25 Date of Discharge: 04/26/25 Primary Care Physician: Dr. Phuc Martines, DO Reason For Visit: PAFLUTTER W/RVR, ? ACUTE VIRAL SYNDROME Diagnosis Discharge Diagnosis (1) Atrial flutter with rapid ventricular response: Status: Acute Code(s): I48.92 - Unspecified atrial flutter Plan The patient is a 69 y/o F admitted with fever 102 Fahrenheit on Saturday, URI symptoms nasal congestion, shortness of breath/dyspnea on her baseline 3 to 6 L of oxygen because of COPD and chronic alcohol use. No recent cough. There is concerned of UTI therefore was started on Macrobid but later on urine culture came back negative. She was tachycardic heart rate about 129 bpm in PCP office and was sent for admission. Denies chest pain abdominal pain nausea and vomiting #1. Mild COPD exacerbation from suspected viral infection: Patient is being admitted in the PCU. Currently on 6 L of oxygen. Patient is being managed on scheduled bronchodilator, Pulmicort aerosol twice daily, Mucinex, incentive spirometry and Pep. 04/25: Air entry has improved compared to yesterday. Continue bronchodilator treatment. 04/26: Patient on baseline oxygen 4 to 5 L/min. Home O2 qualification test ordered. Patient is medically stable for discharge. #2. Paroxsymal atrial flutter w/ RVR due to acute on chronic HFpEF: EKG in ED w/ atrial flutter w/ RVR. Patient administered Cardizem bolus and eventually placed on a drip in ED. Was started on Cardizem drip. Continue Eliquis. Cardizem drip is being tapered off, started on Cardizem 60 mg Q6 hourly. Recent echo on 02/19/2025 with borderline LV systolic function with LVEF 45 to 50%, moderate global RV systolic dysfunction, mild biatrial dilatation, moderate MVI, mild TBI, RVSP 53 mmHg Chest x-ray shows cardiomegaly and mild fluid congestion. Furosemide 40 mg IV twice daily 04/25: Heart rate is better controlled and 100s. Cardizem 60 mg Q6 hourly changed to Cardizem CD 120 mg Q12 hourly. Continue IV diuresis 04/26: Heart rate is controlled about 90s. Cardizem CD dose increased to 180 mg every 12 hourly and prescription for the same given. Discharged on metoprolol and Cardizem CD #3. UTI ruled out and possible Macrobid allergic: Patient was started on Macrobid for concern of UTI but she developed a rash therefore was discontinued. Urine culture also negative therefore UTI ruled out 04/26: Macrobid discontinued from the discharge med list. #4. EtOH Abuse, recently cutting back: Currently she drinks 2/day, total 14 drinks weekly and therefore advised to quit it. She was also told by her senior database administrator Dr. Bryan Elena to be cautious will maintain on CIWA protocol, MVI, thiamine and folic acid. #5. Hypertension: Continue home regimen including Lasix, metoprolol, as needed hydralazine #6. Hyperlipidemia: Triglycerides 93, Cholesterol 138, LDL Cholesterol, Calc 81, VLDL Cholesterol 19, HDL Cholesterol 38 L, Cholesterol/HDL Ratio 3.62, TSH 1.970. Started on atorvastatin 20 mg daily. discharged on atorvastatin 40 mg daily, prescription given #7. Morbid Obesity: Weight loss and lifestyle changes encouraged. #8. History of VTE: Patient with history of DVT, PE, continue Eliquis home regimen. #9. She quit smoking about 10 years ago. Total more than 40 pack years of a smoker #10. ROXY: Patient reports that she only uses supplemental oxygen, no PAP therapy. Follows propeller engineer Dr. Diana nelson #11. DVT prophylaxis: Will continue patient on Eliquis regimen. #12. CODE status: Patient ARACELI is her daughter and living will is currently in place. Discussed CODE status at length including difference between FULL code, DNR-CCA and DNR-CC status. Following discussions about the differences in these status, requested Full Code status. Discharge medication reconciliation done. Discharge follow-up instructions completed. Discharge process discussed with the patient and all questions were answered to patient's satisfaction. Follow with PCP in 1 to 2 weeks Total time spent, exact 35 minutes on discharge meds reconciliation, examination, coordination of care with nurses and ancillary staff, review of imaging and blood test and discussion with the patient on follow-up instructions. Microbiology Past 72 Hours 04/24/25 01:36 Mucosa - Nasopharyngeal Respiratory Panel (PCR) - Final Laboratory Results 04/25/25 06:18: WBC 8.7, RBC 3.85 L, Hgb 11.9 L, Hct 39.3, MCV 102.1 H, MCH 30.9, MCHC 30.3 L, RDW Std Deviation 54.5 H, RDW Coeff of Karly 14.5, Plt Count 286, MPV 10.1, Immature Gran % (Auto) 0.300, Neut % (Auto) 85.7 H, Lymph % (Auto) 6.3 L, [place] % (Auto) 6.2, Eos % (Auto) 1.0, Baso % (Auto) 0.5, Absolute Neuts (auto) 7.5, Absolute Lymphs (auto) 0.55 L, Nucleated RBC % 0, Sodium 141, Potassium 4.3, Chloride 95 L, Carbon Dioxide 36.5 H, Anion Gap 9, BUN 17, Creatinine 0.67 L, Estim Creat Clear Calc 84.48, Est GFR (MDRD) Non-Af 96, BUN/Creatinine Ratio 25.0 H, Glucose 130 H, Calcium 9.3 04/24/25 05:42: Sodium 146 H, Potassium 4.6, Chloride 100, Carbon Dioxide 38.0 H, Anion Gap 8, BUN 13, Creatinine 0.63 L, Estim Creat Clear Calc 85.25, Est GFR (MDRD) Non-Af 97, BUN/Creatinine Ratio 20.9 H, Glucose 144 H, Calcium 9.4, Total Bilirubin 0.44, AST 21, ALT 30, Alkaline Phosphatase 112 H, Total Protein 6.6, Albumin 3.3 L, Globulin 3.3, Albumin/Globulin Ratio 1.0, Triglycerides 93, Cholesterol 138, LDL Cholesterol, Calc 81, VLDL Cholesterol 19, HDL Cholesterol 38 L, Cholesterol/HDL Ratio 3.62, TSH 1.970 Medications at Discharge Home Medications Oxygen, Home [Home Oxygen] 2 - 4 lpm QHS sob/copd 11/13/17 albuterol sulfate 90 mcg/actuation breath activated powder inhaler 2 inh inhalation Q6H PRN shortness of breath 02/19/25 fluticasone fur. 200 mcg-umeclid 62.5 mcg-vilant 25 mcg inhalat.powder (Trelegy Ellipta) 1 ea inhalation DAILY sob 02/19/25 guaifenesin 1,200 mg tablet, extended release 12 hr (Mucus Relief ER) 1,200 mg PO BID PRN cough 02/19/25 ipratropium 0.5 mg-albuterol 3 mg (2.5 mg base)/3 mL nebulization soln 3 ml inhalation Q6H PRN shortness of breath 02/19/25 multivitamin (Daily Multi-Vitamin tablet) 1 tab PO DAILY supplement 02/19/25 sodium chloride 0.65 % nasal spray aerosol ([place] Saline) 1 spray intranasal BID PRN dry nasal passages 02/19/25 apixaban 5 mg tablet (Eliquis) 5 mg PO BID blood thinner #60 tabs 02/23/25 furosemide 40 mg tablet 40 mg PO BID diuretic #60 tabs 02/23/25 metoprolol tartrate 50 mg tablet 50 mg PO BID blood pressure #60 tabs 02/23/25 potassium chloride 20 mEq tablet,extended release(part/cryst) (Klor-Con M) 20 meq PO BID supplement #60 tabs 02/23/25 ascorbic acid (vitamin C) 500 mg capsule 500 mg PO DAILY PRN supplement 03/30/25 cinnamon bark 500 mg capsule (Cinnamon) 500 mg PO QDAY supplement 03/30/25 mecobalamin (vitamin B12) 1,000 mcg chewable tablet 1,000 mcg PO QDAY supplement 03/30/25 nystatin 100,000 unit/gram topical cream 1 applic topical BID skin rash 04/23/25 atorvastatin 40 mg tablet 40 mg PO QHS 30 days #30 tabs 04/26/25 diltiazem HCl 180 mg capsule,extended release 24 hr 180 mg PO Q12 30 days #60 caps 04/26/25 Hospital Course Summary of Care Provided Hospital Course: Microbiology Past 72 Hours 04/24/25 01:36 Mucosa - Nasopharyngeal Respiratory Panel (PCR) - Final Laboratory Results 04/26/25 05:30: WBC 9.2, RBC 3.77 L, Hgb 11.6 L, Hct 38.8, MCV 102.9 H, MCH 30.8, MCHC 29.9 L, RDW Std Deviation 54.2 H, RDW Coeff of Karly 14.3, Plt Count 266, MPV 11.1, Immature Gran % (Auto) 0.700, Neut % (Auto) 87.0 H, Lymph % (Auto) 5.2 L, [place] % (Auto) 5.9, Eos % (Auto) 0.9, Baso % (Auto) 0.3, Absolute Neuts (auto) 8.0 H, Absolute Lymphs (auto) 0.48 L, Nucleated RBC % 0, Sodium 142, Potassium 4.6, Chloride 96 L, Carbon Dioxide 37.1 H, Anion Gap 8, BUN 23 H, Creatinine 0.72, Estim Creat Clear Calc 85.43, Est GFR (MDRD) Non-Af 92, BUN/Creatinine Ratio 32.1 H, Glucose 125 H, Calcium 9.4 Physical Exam Narrative Seen and examined. Shortness of breath is improved and patient is on baseline. Heart rhythm A-fib, heart rate is controlled currently on 5 L of oxygen Patient was admitted for SOB and, rapid heart rate, new onset atrial flutter, COPD on 3 to 6 L of oxygen at baseline and chronic alcohol use. Scheduled with senior database administrator for possible ablation. Patient was also having fever and PCP concern for UTI Physical exam General: Alert, Oriented x3, Cooperative HEENT: Atraumatic, PERRLA, EOMI, Normocephalic. Oral: No Gingival or Mucosal Lesions/ Ulcerations Neck: Supple, No JVD, Negative Carotid Bruits Chest wall/Lungs: Air entry improved in all lung yu. Very fine bilateral expiratory rhonchi Cardiovascular: Irregular rate and rhythm, Normal S1,S2, systolic murmur Abdomen: Bowel Sounds Present, Soft, Non Tender, Non-Distended : No dysuria. No renal angle tenderness. No suprapubic tenderness. Extremities: Mild 1+ pitting edema, Capillary Refill Less than 3 Seconds Skin: No rashes, No breakdown Musculoskeletal: No Tenderness to Palpation of Joints or Extremities. ROM restricted Neurological: Cranial nerves II-XII grossly intact, DTR 2+/4. No acute focal neurological deficit. Psych/Mental Status: Normal Affect, Appropriate. Weight / BMI Weight Weight: 256 lb 2.834 oz Body Mass Index (BMI) 43.9 ABG / Lab / Microbiology Data 04/26/25 05:30 04/26/25 05:30 Laboratory: Laboratory Results - last 24 hr 04/26/25 05:30: WBC 9.2, RBC 3.77 L, Hgb 11.6 L, Hct 38.8, MCV 102.9 H, MCH 30.8, MCHC 29.9 L, RDW Std Deviation 54.2 H, RDW Coeff of Karly 14.3, Plt Count 266, MPV 11.1, Immature Gran % (Auto) 0.700, Neut % (Auto) 87.0 H, Lymph % (Auto) 5.2 L, [place] % (Auto) 5.9, Eos % (Auto) 0.9, Baso % (Auto) 0.3, Absolute Neuts (auto) 8.0 H, Absolute Lymphs (auto) 0.48 L, Nucleated RBC % 0, Sodium 142, Potassium 4.6, Chloride 96 L, Carbon Dioxide 37.1 H, Anion Gap 8, BUN 23 H, Creatinine 0.72, Estim Creat Clear Calc 85.43, Est GFR (MDRD) Non-Af 92, BUN/Creatinine Ratio 32.1 H, Glucose 125 H, Calcium 9.4 Microbiology: Microbiology 04/24/25 01:36 Mucosa - Nasopharyngeal Respiratory Panel (PCR) - Final D/C Instructions Discharge Diet: Low fat / Low cholesterol and 2000 mg Sodium Diet Weight Bearing Status: Weight bearing as tolerated Call your doctor if you observe: Fever of 101 or Higher, Coldness, Increased Pain, Numbness or Tingling, Change in Color, Inability to urinate, Inability to have a bowel movement, Shortness of breath, Dizziness, Fainting spells, Swelling in the ankles, Chest pain, Prolonged hiccupping, Increased palpitations (irregular heartbeat) and Calf discomfort DC O2, CPAP, BIPAP Needs Home O2 Discharge instructions: Yes Type of respiratory needs?: Oxygen Oxygen frequency: Continuous Continuous oxygen liters per minute: 5 DC home with Oxygen: Yes Home O2 MD Review: I have reviewed the oxygen testing, and the patient qualifies for home oxygen equipment and portability. The patient is mobile in the home and the community. When: IN 2 WEEKS Meaningful Use Info Meaningful Use Meaningful Use Diagnoses (Choose all that apply): CHF CHF NINA/ARB ordered at discharge?: No Reason NINA/ARB not ordered?: Hypotension and Normal EF Documented LVEF (%): 50 Ischemic Stroke Statin Dosing Therapy Reference: STATIN DOSE THERAPY REFERENCE: * Patients > 75 years receive moderate or high dose statin therapy. * Patients 75 years or YOUNGER should receive HIGH intensity statin dose unless contraindicated. You will be required to document reason for non-treatment if statin daily dose does not meet guidelines. HIGH DOSE STATIN THERAPY DAILY Atorvastatin > than or = to 40 mg Rosuvastatin > than or = to 20 mg Amlodipine + Atorvastatin > than or = to 2.5/40 mg Ezetimibe + Simvastatin 10/80 mg Simvastatin 80mg Discharge Plan Admission Admit Date/Time: 04/23/25 21:51 Primary Reason for Your Visit: A-fib RVR/CHF exacerbation Attending Provider: George Polanco Primary Care Provider: Phuc Martines Consulting Providers: Virginia Henriquez Discharge Orders/Prescriptions Prescriptions: New atorvastatin 40 mg Tablet 40 mg PO QHS 30 Days Qty: 30 2RF diltiazem HCl 180 mg Capsule,Extended Release 24hr 180 mg PO Q12 30 Days Qty: 60 1RF Continued cinnamon bark [Cinnamon] 500 mg capsule 500 mg PO QDAY mecobalamin (vitamin B12) 1,000 mcg tablet,chewable 1,000 mcg PO QDAY Oxygen, Home [Home Oxygen] 2 - 4 lpm NASAL QHS ascorbic acid (vitamin C) 500 mg capsule 500 mg PO DAILY PRN (Reason: supplement) Patient Comments: only takes in winter albuterol sulfate 90 mcg/actuation aerosol powdr breath activated 2 inh inhalation Q6H PRN (Reason: shortness of breath) Trelegy Ellipta 200-62.5-25 mcg blister with device 1 ea inhalation DAILY ipratropium-albuterol 0.5 mg-3 mg(2.5 mg base)/3 mL solution for nebulization 3 ml inhalation Q6H PRN (Reason: shortness of breath) multivitamin [Daily Multi-Vitamin] Tablet 1 tab PO DAILY [place] Saline 0.65 % aerosol,spray 1 spray intranasal BID PRN (Reason: dry nasal passages) guaifenesin [Mucus Relief ER] 1,200 MG tablet 1,200 mg PO BID PRN (Reason: cough) metoprolol tartrate 50 mg Tablet 50 mg PO BID Qty: 60 2RF furosemide 40 mg tablet 40 mg PO BID Qty: 60 2RF potassium chloride [Klor-Con M20] 20 mEq tablet,ER particles/crystals 20 meq PO BID Qty: 60 2RF Eliquis 5 mg Tablet 5 mg PO BID Qty: 60 2RF nystatin 100,000 unit/gram cream 1 applic topical BID Discontinued nitrofurantoin monohyd/m-cryst 100 mg capsule 1 cap PO BID Referrals / Follow Up: Mercy Purvis MD [Med Staff - Active Staff] - Within 1 Month Yonathan Nelson DO [Med Staff - Active Staff] - Within 1 Month (Respiratory failure, COPD on oxygen) Phuc Martines DO [Primary Care Provider] - Within 2 Weeks Irina Elam, PA [Med Staff - Adv Practice Prof] - Within 2 Weeks Disposition Disposition (needs filled in before D/C Order can be placed): Home, Self Care Charges/Coding Visit Charges Inpatient E&M: 94983 Disch Hosp >30min
--- NOTE | 2025-04-26 10:22 | PHA.DC_ITS ---
Pharmacy [facility] Counseling Pharmacy Service has performed discharge medication reconciliation and counseling for this patient. 1. ATORVASTATIN 40MG PO QHS 2. DILTIAZEM CD 180MG PO Q12 The patient's discharge medication list was reviewed for discrepancies and discrepancies were resolved. The patient was counseled on the following discharge medications and changes in medications for homegoing were reviewed. The Reason for Use, instructions for use, and potential side effects were reviewed for all new medications. The patient's questions regarding all of their medications were answered. The patient was able to verbally demonstrate an understanding of their discharge medications. Medications at Discharge Home Medications Oxygen, Home [Home Oxygen] 2 - 4 lpm QHS sob/copd 11/13/17 albuterol sulfate 90 mcg/actuation breath activated powder inhaler 2 inh inhalation Q6H PRN shortness of breath 02/19/25 fluticasone fur. 200 mcg-umeclid 62.5 mcg-vilant 25 mcg inhalat.powder (Trelegy Ellipta) 1 ea inhalation DAILY sob 02/19/25 guaifenesin 1,200 mg tablet, extended release 12 hr (Mucus Relief ER) 1,200 mg PO BID PRN cough 02/19/25 ipratropium 0.5 mg-albuterol 3 mg (2.5 mg base)/3 mL nebulization soln 3 ml inhalation Q6H PRN shortness of breath 02/19/25 multivitamin (Daily Multi-Vitamin tablet) 1 tab PO DAILY supplement 02/19/25 sodium chloride 0.65 % nasal spray aerosol ([place] Saline) 1 spray intranasal BID PRN dry nasal passages 02/19/25 apixaban 5 mg tablet (Eliquis) 5 mg PO BID blood thinner #60 tabs 02/23/25 furosemide 40 mg tablet 40 mg PO BID diuretic #60 tabs 02/23/25 metoprolol tartrate 50 mg tablet 50 mg PO BID blood pressure #60 tabs 02/23/25 potassium chloride 20 mEq tablet,extended release(part/cryst) (Klor-Con M) 20 meq PO BID supplement #60 tabs 02/23/25 ascorbic acid (vitamin C) 500 mg capsule 500 mg PO DAILY PRN supplement 03/30/25 cinnamon bark 500 mg capsule (Cinnamon) 500 mg PO QDAY supplement 03/30/25 mecobalamin (vitamin B12) 1,000 mcg chewable tablet 1,000 mcg PO QDAY supplement 03/30/25 nystatin 100,000 unit/gram topical cream 1 applic topical BID skin rash 04/23/25 atorvastatin 40 mg tablet 40 mg PO QHS 30 days #30 tabs 04/26/25 diltiazem HCl 180 mg capsule,extended release 24 hr 180 mg PO Q12 30 days #60 caps 04/26/25
--- NOTE | 2025-04-26 14:51 | CHAPLAIN ---
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 ___ Other (describe below) Sacrament/Intervention _x__ Active listening ___ Anointing ___ Bahai ___ Bereavement ___ Communion ___ Nidia exploration ___ ___ Life review _x__ Prayer ___ Reconciliation ___ Sacrament of Sick _x__ Supportive presence ___ Wedding ___ Other (describe below) Pastoral Comments patient is welcoming, answers all questions appropriately, and is pleasant; pt has ability to process her situation and takes a positive look on things; pt says that she has not been in holiness for a long time but still believes and prays; pt willing to have pray for himself at this time; pt goal is to have O2 levels go up
--- NOTE | 2025-04-26 15:32 | PCM.PN.HOSP ---
Reason for Visit Reason for Visit: Diagnoses Unspecified atrial flutter (04/23/25) Objective Data Objective Data Vital Signs: Vital Signs Temp Pulse Resp BP Pulse Ox O2 Del Method O2 Flow Rate 98.6 F 94 18 110/53 L 95 Nasal Cannula 5 04/26/25 15:26 04/26/25 15:26 04/26/25 15:26 04/26/25 15:26 04/26/25 15:26 04/26/25 15:26 04/26/25 15:26 Oxygen Flow Rate (L/min) 5 Oxygen Delivery Method Nasal Cannula Weight: 256 lb 2.834 oz Body Mass Index (BMI) 43.9 Intake & Output: Intake and Output for Last 24 Hours 04/24/25 04/25/25 04/26/25 23:59 23:59 23:59 Intake Total 853.16 / 853.16 715 / 835 520 / 520 Output Total 700 / 700 Balance 153.16 / 153.16 715 / 835 520 / 520 Lab / Micro Data 04/26/25 05:30 04/26/25 05:30 Labs: Laboratory Results - last 24 hr 04/26/25 05:30: WBC 9.2, RBC 3.77 L, Hgb 11.6 L, Hct 38.8, MCV 102.9 H, MCH 30.8, MCHC 29.9 L, RDW Std Deviation 54.2 H, RDW Coeff of Karly 14.3, Plt Count 266, MPV 11.1, Immature Gran % (Auto) 0.700, Neut % (Auto) 87.0 H, Lymph % (Auto) 5.2 L, Mitchell % (Auto) 5.9, Eos % (Auto) 0.9, Baso % (Auto) 0.3, Absolute Neuts (auto) 8.0 H, Absolute Lymphs (auto) 0.48 L, Nucleated RBC % 0, Sodium 142, Potassium 4.6, Chloride 96 L, Carbon Dioxide 37.1 H, Anion Gap 8, BUN 23 H, Creatinine 0.72, Estim Creat Clear Calc 85.43, Est GFR (MDRD) Non-Af 92, BUN/Creatinine Ratio 32.1 H, Glucose 125 H, Calcium 9.4 Micro: Microbiology 04/24/25 01:36 Mucosa - Nasopharyngeal Respiratory Panel (PCR) - Final Physical Exam Narrative Seen and examined. Patient required 8 L on exertion therefore discharge canceled Overall, shortness of breath is improved and patient is on baseline. Heart rhythm A-fib, heart rate is controlled currently on 5 L of oxygen Patient was admitted for SOB and, rapid heart rate, new onset atrial flutter, COPD on 3 to 6 L of oxygen at baseline and chronic alcohol use. Scheduled with deep submergence vehicle operator for possible ablation. Patient was also having fever and PCP concern for UTI Physical exam General: Alert, Oriented x3, Cooperative HEENT: Atraumatic, PERRLA, EOMI, Normocephalic. Oral: No Gingival or Mucosal Lesions/ Ulcerations Neck: Supple, No JVD, Negative Carotid Bruits Chest wall/Lungs: Air entry improved in all lung yu. Very fine bilateral expiratory rhonchi Cardiovascular: Irregular rate and rhythm, Normal S1,S2, systolic murmur Abdomen: Bowel Sounds Present, Soft, Non Tender, Non-Distended : No dysuria. No renal angle tenderness. No suprapubic tenderness. Extremities: Mild 1+ pitting edema, Capillary Refill Less than 3 Seconds Skin: No rashes, No breakdown Musculoskeletal: No Tenderness to Palpation of Joints or Extremities. ROM restricted Neurological: Cranial nerves II-XII grossly intact, DTR 2+/4. No acute focal neurological deficit. Psych/Mental Status: Normal Affect, Appropriate. Assessment & Plan Assessment/Plan (1) Atrial flutter with rapid ventricular response: PLAN: Plan The patient is a 69 y/o F admitted with fever 102 Fahrenheit on Saturday, URI symptoms nasal congestion, shortness of breath/dyspnea on her baseline 3 to 6 L of oxygen because of COPD and chronic alcohol use. No recent cough. There is concerned of UTI therefore was started on Macrobid but later on urine culture came back negative. She was tachycardic heart rate about 129 bpm in PCP office and was sent for admission. Denies chest pain abdominal pain nausea and vomiting #1. Mild COPD exacerbation from suspected viral infection: Patient is being admitted in the PCU. Currently on 6 L of oxygen. Patient is being managed on scheduled bronchodilator, Pulmicort aerosol twice daily, Mucinex, incentive spirometry and Pep. 04/25: Air entry has improved compared to yesterday. Continue bronchodilator treatment. 04/26: Patient on baseline oxygen 4 to 5 L/min. Home O2 qualification test ordered. Patient required 8 L on exertion therefore discharge canceled #2. Paroxsymal atrial flutter w/ RVR due to acute on chronic HFpEF: EKG in ED w/ atrial flutter w/ RVR. Patient administered Cardizem bolus and eventually placed on a drip in ED. Was started on Cardizem drip. Continue Eliquis. Cardizem drip is being tapered off, started on Cardizem 60 mg Q6 hourly. Recent echo on 02/19/2025 with borderline LV systolic function with LVEF 45 to 50%, moderate global RV systolic dysfunction, mild biatrial dilatation, moderate MVI, mild TBI, RVSP 53 mmHg Chest x-ray shows cardiomegaly and mild fluid congestion. Furosemide 40 mg IV twice daily 04/25: Heart rate is better controlled and 100s. Cardizem 60 mg Q6 hourly changed to Cardizem CD 120 mg Q12 hourly. Continue IV diuresis 04/26: Heart rate is controlled about 90s. Cardizem CD dose increased to 180 mg every 12 hourly and prescription for the same given. #3. UTI ruled out and possible Macrobid allergic: Patient was started on Macrobid for concern of UTI but she developed a rash therefore was discontinued. Urine culture also negative therefore UTI ruled out 04/26: Macrobid discontinued from the discharge med list. #4. EtOH Abuse, recently cutting back: Currently she drinks 2/day, total 14 drinks weekly and therefore advised to quit it. She was also told by her deep submergence vehicle operator Dr. Bryan Elena to be cautious will maintain on CIWA protocol, MVI, thiamine and folic acid. #5. Hypertension: Continue home regimen including Lasix, metoprolol, as needed hydralazine #6. Hyperlipidemia: Triglycerides 93, Cholesterol 138, LDL Cholesterol, Calc 81, VLDL Cholesterol 19, HDL Cholesterol 38 L, Cholesterol/HDL Ratio 3.62, TSH 1.970. Started on atorvastatin 20 mg daily. discharged on atorvastatin 40 mg daily #7. Morbid Obesity: Weight loss and lifestyle changes encouraged. #8. History of VTE: Patient with history of DVT, PE, continue Eliquis home regimen. #9. She quit smoking about 10 years ago. Total more than 40 pack years of a smoker #10. ROXY: Patient reports that she only uses supplemental oxygen, no PAP therapy. Follows cytology supervisor Dr. Diana hawk #11. DVT prophylaxis: Will continue patient on Eliquis regimen. #12. CODE status: Patient ARACELI is her daughter and living will is currently in place. Discussed CODE status at length including difference between FULL code, DNR-CCA and DNR-CC status. Following discussions about the differences in these status, requested Full Code status. Microbiology Past 72 Hours 04/24/25 01:36 Mucosa - Nasopharyngeal Respiratory Panel (PCR) - Final Laboratory Results 04/26/25 05:30: WBC 9.2, RBC 3.77 L, Hgb 11.6 L, Hct 38.8, MCV 102.9 H, MCH 30.8, MCHC 29.9 L, RDW Std Deviation 54.2 H, RDW Coeff of Karly 14.3, Plt Count 266, MPV 11.1, Immature Gran % (Auto) 0.700, Neut % (Auto) 87.0 H, Lymph % (Auto) 5.2 L, Mitchell % (Auto) 5.9, Eos % (Auto) 0.9, Baso % (Auto) 0.3, Absolute Neuts (auto) 8.0 H, Absolute Lymphs (auto) 0.48 L, Nucleated RBC % 0, Sodium 142, Potassium 4.6, Chloride 96 L, Carbon Dioxide 37.1 H, Anion Gap 8, BUN 23 H, Creatinine 0.72, Estim Creat Clear Calc 85.43, Est GFR (MDRD) Non-Af 92, BUN/Creatinine Ratio 32.1 H, Glucose 125 H, Calcium 9.4 Charges/Coding Visit Charges Inpatient E&M: 93515 Subs Hosp L2
[2025-04-26] MEDS: 0.9% Saline Lock 10 ML Syringe IV (22:43)
[2025-04-27] VITALS (13 sets, daily range): BP systolic 103–133; BP diastolic 53–78; PULSE 79–111; RESP 16–18; TEMP 36.4–37; O2SAT 91–96; BMI 44.5
[2025-04-27] MEDS: 0.9% Saline Lock 10 ML Syringe IV ×3 (04:09→13:49)
[2025-04-27] MEDS: Ipratropium 0.5 MG/2.5 ML SOLUTION INHALATION ×3 (06:34→14:20)
[2025-04-27] MEDS: guaiFENesin/D-Methorphan TAB.SR.12H 2 TABLET PO (09:16)
[2025-04-27] MEDS: Thiamine Hydrochloride 100 MG Tablet PO (09:16)
[2025-04-27] MEDS: APIXABAN 5 MG TABLET PO (09:17)
[2025-04-27] MEDS: Potassium Chloride Oral Tablet 20 MEQ PO (09:17)
--- NOTE | 2025-04-27 11:12 | DCINST_ITS ---
Discharge Instructions Diet Discharge Diet: Low fat / Low cholesterol and 2000 mg Sodium Diet DC O2, CPAP, BIPAP needs Home O2 Discharge instructions: Yes Type of respiratory needs?: Oxygen Oxygen frequency: Continuous Continuous oxygen liters per minute: 5 Dressing / Incision Weight Bearing Status: Weight bearing as tolerated Dressing / Incision Call your doctor if you observe: Fever of 101 or Higher, Coldness, Increased Pain, Numbness or Tingling, Change in Color, Inability to urinate, Inability to have a bowel movement, Shortness of breath, Dizziness, Fainting spells, Swelling in the ankles, Chest pain, Prolonged hiccupping, Increased palpitations (irregular heartbeat) and Calf discomfort Follow Up Care Test Results: Test results from this visit will be discussed in further detail at your follow- up appointment, if applicable. Discharge Plan Admission Admit Date/Time: 04/23/25 21:51 Primary Reason for Your Visit: A-fib RVR/CHF exacerbation Attending Provider: George Polanco Primary Care Provider: Phuc Martines Consulting Providers: Virginia Henriquez Discharge Orders/Prescriptions Prescriptions: New atorvastatin 40 mg Tablet 40 mg PO QHS 30 Days Qty: 30 2RF diltiazem HCl 180 mg Capsule,Extended Release 24hr 180 mg PO Q12 30 Days Qty: 60 1RF Continued cinnamon bark [Cinnamon] 500 mg capsule 500 mg PO QDAY mecobalamin (vitamin B12) 1,000 mcg tablet,chewable 1,000 mcg PO QDAY Oxygen, Home [Home Oxygen] 2 - 4 lpm NASAL QHS ascorbic acid (vitamin C) 500 mg capsule 500 mg PO DAILY PRN (Reason: supplement) Patient Comments: only takes in winter albuterol sulfate 90 mcg/actuation aerosol powdr breath activated 2 inh inhalation Q6H PRN (Reason: shortness of breath) Trelegy Ellipta 200-62.5-25 mcg blister with device 1 ea inhalation DAILY ipratropium-albuterol 0.5 mg-3 mg(2.5 mg base)/3 mL solution for nebulization 3 ml inhalation Q6H PRN (Reason: shortness of breath) multivitamin [Daily Multi-Vitamin] Tablet 1 tab PO DAILY [place] Saline 0.65 % aerosol,spray 1 spray intranasal BID PRN (Reason: dry nasal passages) guaifenesin [Mucus Relief ER] 1,200 MG tablet 1,200 mg PO BID PRN (Reason: cough) metoprolol tartrate 50 mg Tablet 50 mg PO BID Qty: 60 2RF furosemide 40 mg tablet 40 mg PO BID Qty: 60 2RF potassium chloride [Klor-Con M20] 20 mEq tablet,ER particles/crystals 20 meq PO BID Qty: 60 2RF Eliquis 5 mg Tablet 5 mg PO BID Qty: 60 2RF nystatin 100,000 unit/gram cream 1 applic topical BID Discontinued nitrofurantoin monohyd/m-cryst 100 mg capsule 1 cap PO BID Referrals / Follow Up: Mercy Purvis MD [Med Staff - Active Staff] - Within 1 Month Yonathan Nelson DO [Med Staff - Active Staff] - Within 1 Month (Respiratory failure, COPD on oxygen) Phuc Martines DO [Primary Care Provider] - Within 2 Weeks Irina Elam PA [Med Staff - Adv Practice Prof] - Within 2 Weeks Disposition Disposition (needs filled in before D/C Order can be placed): Home Health Service
--- NOTE | 2025-04-27 11:13 | DS.PCM_ITS ---
Providers Date of Admission: 04/23/25 Date of Discharge: 04/27/25 Primary Care Physician: Dr. Phuc Martines, DO Reason For Visit: PAFLUTTER W/RVR, ? ACUTE VIRAL SYNDROME Diagnosis Discharge Diagnosis (1) Atrial flutter with rapid ventricular response: Status: Acute Code(s): I48.92 - Unspecified atrial flutter Plan The patient is a 69 y/o F admitted with fever 102 Fahrenheit on Saturday, URI symptoms nasal congestion, shortness of breath/dyspnea on her baseline 3 to 6 L of oxygen because of COPD and chronic alcohol use. No recent cough. There is concerned of UTI therefore was started on Macrobid but later on urine culture came back negative. She was tachycardic heart rate about 129 bpm in PCP office and was sent for admission. Denies chest pain abdominal pain nausea and vomiting #1. Mild COPD exacerbation from suspected viral infection: Patient is being admitted in the PCU. Currently on 6 L of oxygen. Patient is being managed on scheduled bronchodilator, Pulmicort aerosol twice daily, Mucinex, incentive spirometry and Pep. 04/25: Air entry has improved compared to yesterday. Continue bronchodilator treatment. 04/26: Patient on baseline oxygen 4 to 5 L/min. Home O2 qualification test ordered. Patient required 8 L on exertion therefore discharge canceled 04/27: Patient on baseline oxygen requirement 4 to 5 L. Patient did not meet criteria for SNF so will be going home. #2. Paroxsymal atrial flutter w/ RVR due to acute on chronic HFpEF: EKG in ED w/ atrial flutter w/ RVR. Patient administered Cardizem bolus and eventually placed on a drip in ED. Was started on Cardizem drip. Continue Eliquis. Cardizem drip is being tapered off, started on Cardizem 60 mg Q6 hourly. Recent echo on 02/19/2025 with borderline LV systolic function with LVEF 45 to 50%, moderate global RV systolic dysfunction, mild biatrial dilatation, moderate MVI, mild TBI, RVSP 53 mmHg Chest x-ray shows cardiomegaly and mild fluid congestion. Furosemide 40 mg IV twice daily 04/25: Heart rate is better controlled and 100s. Cardizem 60 mg Q6 hourly changed to Cardizem CD 120 mg Q12 hourly. Continue IV diuresis 04/26: Heart rate is controlled about 90s. Cardizem CD dose increased to 180 mg every 12 hourly and prescription for the same given. 04/27: Heart rate is better controlled. #3. UTI ruled out and possible Macrobid allergic: Patient was started on Macrobid for concern of UTI but she developed a rash therefore was discontinued. Urine culture also negative therefore UTI ruled out 04/26: Macrobid discontinued from the discharge med list. #4. EtOH Abuse, recently cutting back: Currently she drinks 2/day, total 14 drinks weekly and therefore advised to quit it. She was also told by her instrument technologist Dr. Bryan Elena to be cautious will maintain on CIWA protocol, MVI, thiamine and folic acid. #5. Hypertension: Continue home regimen including Lasix, metoprolol, as needed hydralazine #6. Hyperlipidemia: Triglycerides 93, Cholesterol 138, LDL Cholesterol, Calc 81, VLDL Cholesterol 19, HDL Cholesterol 38 L, Cholesterol/HDL Ratio 3.62, TSH 1.970. Started on atorvastatin 20 mg daily. discharged on atorvastatin 40 mg daily #7. Morbid Obesity: Weight loss and lifestyle changes encouraged. #8. History of VTE: Patient with history of DVT, PE, continue Eliquis home regimen. #9. She quit smoking about 10 years ago. Total more than 40 pack years of a smoker #10. ROXY: Patient reports that she only uses supplemental oxygen, no PAP therapy. Follows piece worker Dr. Diana nelson #11. DVT prophylaxis: Will continue patient on Eliquis regimen. #12. CODE status: Patient ARACELI is her daughter and living will is currently in place. Discussed CODE status at length including difference between FULL code, DNR-CCA and DNR-CC status. Following discussions about the differences in these status, requested Full Code status. Discharge medication reconciliation done. Discharge follow-up instructions completed. Discharge process discussed with the patient and all questions were answered to patient's satisfaction. Follow with PCP in 1 to 2 weeks Total time spent, exact 35 minutes on discharge meds reconciliation, examination, coordination of care with nurses and ancillary staff, review of imaging and blood test and discussion with the patient on follow-up instructions. Microbiology Past 72 Hours 04/24/25 01:36 Mucosa - Nasopharyngeal Respiratory Panel (PCR) - Final Laboratory Results 04/26/25 05:30: WBC 9.2, RBC 3.77 L, Hgb 11.6 L, Hct 38.8, MCV 102.9 H, MCH 30.8, MCHC 29.9 L, RDW Std Deviation 54.2 H, RDW Coeff of Karly 14.3, Plt Count 266, MPV 11.1, Immature Gran % (Auto) 0.700, Neut % (Auto) 87.0 H, Lymph % (Auto) 5.2 L, [place] % (Auto) 5.9, Eos % (Auto) 0.9, Baso % (Auto) 0.3, Absolute Neuts (auto) 8.0 H, Absolute Lymphs (auto) 0.48 L, Nucleated RBC % 0, Sodium 142, Potassium 4.6, Chloride 96 L, Carbon Dioxide 37.1 H, Anion Gap 8, BUN 23 H, Creatinine 0.72, Estim Creat Clear Calc 85.43, Est GFR (MDRD) Non-Af 92, B UN/Creatinine Ratio 32.1 H, Glucose 125 H, Calcium 9.4 Medications at Discharge Home Medications Oxygen, Home [Home Oxygen] 2 - 4 lpm QHS sob/copd 11/13/17 albuterol sulfate 90 mcg/actuation breath activated powder inhaler 2 inh inhalation Q6H PRN shortness of breath 02/19/25 fluticasone fur. 200 mcg-umeclid 62.5 mcg-vilant 25 mcg inhalat.powder (Trelegy Ellipta) 1 ea inhalation DAILY sob 02/19/25 guaifenesin 1,200 mg tablet, extended release 12 hr (Mucus Relief ER) 1,200 mg PO BID PRN cough 02/19/25 ipratropium 0.5 mg-albuterol 3 mg (2.5 mg base)/3 mL nebulization soln 3 ml inhalation Q6H PRN shortness of breath 02/19/25 multivitamin (Daily Multi-Vitamin tablet) 1 tab PO DAILY supplement 02/19/25 sodium chloride 0.65 % nasal spray aerosol ([place] Saline) 1 spray intranasal BID PRN dry nasal passages 02/19/25 apixaban 5 mg tablet (Eliquis) 5 mg PO BID blood thinner #60 tabs 02/23/25 furosemide 40 mg tablet 40 mg PO BID diuretic #60 tabs 02/23/25 metoprolol tartrate 50 mg tablet 50 mg PO BID blood pressure #60 tabs 02/23/25 potassium chloride 20 mEq tablet,extended release(part/cryst) (Klor-Con M) 20 meq PO BID supplement #60 tabs 02/23/25 ascorbic acid (vitamin C) 500 mg capsule 500 mg PO DAILY PRN supplement 03/30/25 cinnamon bark 500 mg capsule (Cinnamon) 500 mg PO QDAY supplement 03/30/25 mecobalamin (vitamin B12) 1,000 mcg chewable tablet 1,000 mcg PO QDAY supplement 03/30/25 nystatin 100,000 unit/gram topical cream 1 applic topical BID skin rash 04/23/25 atorvastatin 40 mg tablet 40 mg PO QHS 30 days #30 tabs 04/26/25 diltiazem HCl 180 mg capsule,extended release 24 hr 180 mg PO Q12 30 days #60 caps 04/26/25 Physical Exam Narrative Seen and examined. Patient complaining of sciatica pain mainly left lumbar with radiation to anterior abdominal wall. Otherwise on baseline health. Overall, shortness of breath is improved and patient is on baseline. Heart rhythm A-fib, heart rate is controlled currently on 5 L of oxygen Patient was admitted for SOB and, rapid heart rate, new onset atrial flutter, COPD on 3 to 6 L of oxygen at baseline and chronic alcohol use. Scheduled with instrument technologist for possible ablation. Patient was also having fever and PCP concern for UTI Physical exam General: Alert, Oriented x3, Cooperative HEENT: Atraumatic, PERRLA, EOMI, Normocephalic. Oral: No Gingival or Mucosal Lesions/ Ulcerations Neck: Supple, No JVD, Negative Carotid Bruits Chest wall/Lungs: Air entry improved in all lung yu. Mild occasional expiratory rhonchi Cardiovascular: Irregular rate and rhythm, Normal S1,S2, systolic murmur Abdomen: Bowel Sounds Present, Soft, Non Tender, Non-Distended : No dysuria. No renal angle tenderness. No suprapubic tenderness. Extremities: Mild 1+ pitting edema, Capillary Refill Less than 3 Seconds Skin: No rashes, No breakdown Musculoskeletal: Mild tenderness over lumbar paraspinal muscle. No Tenderness to Palpation of peripheral knees joints or Extremities. ROM restricted Neurological: Cranial nerves II-XII grossly intact, DTR 2+/4. No acute focal neurological deficit. Psych/Mental Status: Normal Affect, Appropriate. Weight / BMI Weight Weight: 259 lb 7.745 oz Body Mass Index (BMI) 44.5 ABG / Lab / Microbiology Data 04/26/25 05:30 04/26/25 05:30 Microbiology: Microbiology 04/24/25 01:36 Mucosa - Nasopharyngeal Respiratory Panel (PCR) - Final D/C Instructions Discharge Diet: Low fat / Low cholesterol and 2000 mg Sodium Diet Weight Bearing Status: Weight bearing as tolerated Call your doctor if you observe: Fever of 101 or Higher, Coldness, Increased Pain, Numbness or Tingling, Change in Color, Inability to urinate, Inability to have a bowel movement, Shortness of breath, Dizziness, Fainting spells, Swelling in the ankles, Chest pain, Prolonged hiccupping, Increased palpitations (irregular heartbeat) and Calf discomfort DC O2, CPAP, BIPAP Needs Home O2 Discharge instructions: Yes Type of respiratory needs?: Oxygen Oxygen frequency: Continuous Continuous oxygen liters per minute: 5 DC home with Oxygen: Yes Home O2 MD Review: I have reviewed the oxygen testing, and the patient qualifies for home oxygen equipment and portability. The patient is mobile in the home and the community. When: IN 2 WEEKS Meaningful Use Info Meaningful Use Meaningful Use Diagnoses (Choose all that apply): None applicable Ischemic Stroke Statin Dosing Therapy Reference: STATIN DOSE THERAPY REFERENCE: * Patients > 75 years receive moderate or high dose statin therapy. * Patients 75 years or YOUNGER should receive HIGH intensity statin dose unless contraindicated. You will be required to document reason for non-treatment if statin daily dose does not meet guidelines. HIGH DOSE STATIN THERAPY DAILY Atorvastatin > than or = to 40 mg Rosuvastatin > than or = to 20 mg Amlodipine + Atorvastatin > than or = to 2.5/40 mg Ezetimibe + Simvastatin 10/80 mg Simvastatin 80mg Discharge Plan Admission Admit Date/Time: 04/23/25 21:51 Primary Reason for Your Visit: A-fib RVR/CHF exacerbation Attending Provider: George Polanco Primary Care Provider: Phuc Martines Consulting Providers: Virginia Henriquez Discharge Orders/Prescriptions Prescriptions: New atorvastatin 40 mg Tablet 40 mg PO QHS 30 Days Qty: 30 2RF diltiazem HCl 180 mg Capsule,Extended Release 24hr 180 mg PO Q12 30 Days Qty: 60 1RF Continued cinnamon bark [Cinnamon] 500 mg capsule 500 mg PO QDAY mecobalamin (vitamin B12) 1,000 mcg tablet,chewable 1,000 mcg PO QDAY Oxygen, Home [Home Oxygen] 2 - 4 lpm NASAL QHS ascorbic acid (vitamin C) 500 mg capsule 500 mg PO DAILY PRN (Reason: supplement) Patient Comments: only takes in winter albuterol sulfate 90 mcg/actuation aerosol powdr breath activated 2 inh inhalation Q6H PRN (Reason: shortness of breath) Trelegy Ellipta 200-62.5-25 mcg blister with device 1 ea inhalation DAILY ipratropium-albuterol 0.5 mg-3 mg(2.5 mg base)/3 mL solution for nebulization 3 ml inhalation Q6H PRN (Reason: shortness of breath) multivitamin [Daily Multi-Vitamin] Tablet 1 tab PO DAILY [place] Saline 0.65 % aerosol,spray 1 spray intranasal BID PRN (Reason: dry nasal passages) guaifenesin [Mucus Relief ER] 1,200 MG tablet 1,200 mg PO BID PRN (Reason: cough) metoprolol tartrate 50 mg Tablet 50 mg PO BID Qty: 60 2RF furosemide 40 mg tablet 40 mg PO BID Qty: 60 2RF potassium chloride [Klor-Con M20] 20 mEq tablet,ER particles/crystals 20 meq PO BID Qty: 60 2RF Eliquis 5 mg Tablet 5 mg PO BID Qty: 60 2RF nystatin 100,000 unit/gram cream 1 applic topical BID Discontinued nitrofurantoin monohyd/m-cryst 100 mg capsule 1 cap PO BID Referrals / Follow Up: Mercy Purvis MD [Med Staff - Active Staff] - Within 1 Month Yonathan Nelson DO [Med Staff - Active Staff] - 06/01/25 10:45 am (Respiratory failure, COPD on oxygen) Phuc Martines DO [Primary Care Provider] - 05/11/25 11:40 am (APPOINTMENT WITH ANTIONETTE CHEATHAM) Irina Elam PA [Med Staff - Adv Practice Prof] - 05/13/25 1:00 pm Disposition Disposition (needs filled in before D/C Order can be placed): Home Health Service Charges/Coding Visit Charges Inpatient E&M: 99155 Disch Hosp >30min
--- NOTE | 2025-04-27 14:19 | CASEMGMT ---
HERRERA ESPINOSA NOTE: Discharge order is in. HERRERA CM to room. Pt sitting up in chair in room. She states she feels safe to discharge home alone, stating, if needed, family could stay w/her, but she does not think that will be necessary, stating she has been up ad miko in room this afternoon without difficulty. She feels she can manage her portable O2 tank on her own. She states her portable tank is in her car and her friend will be bringing the car to [facility] for her to drive home. She feels comfortable with this. She states her daughter did want her to ask about HHC. Discussed MCR's homebound qualification, she verifies she is not homebound, and voices understanding. Offered [facility] list and she states would like that. Same provided at this time. She is aware Rx's have been sent to [facility] pharmacy in [place] and states she will ask her friend to stop and pick that up today. She denies having any further discharge needs or concerns. Lazara WEISS RN, CM
== END 2025-04-27 16:05 | disposition home or self-care (01) | DRG 291 ==
LOC: ED 21:52 → PCU 22:06
PROVIDERS: Physician Assistant; Admitting Provider Family Medicine; Emergency Provider Emergency Medicine; PCP Student in an Organized Health Care Education/Training Program; Visit Provider Internal Medicine
DX: I11.0 Hypertensive heart disease with heart failure (principal); I50.33 Acute on chronic diastolic (congestive) heart failure; I48.92 Unspecified atrial flutter; J44.1 Chronic obstructive pulmonary disease with (acute) exacerbation; Z68.41 Body mass index [BMI] 40.0-44.9, adult; J96.11 Chronic respiratory failure with hypoxia; Z79.01 Long term (current) use of anticoagulants; F10.10 Alcohol abuse, uncomplicated; E66.01 Morbid (severe) obesity due to excess calories; G47.33 Obstructive sleep apnea (adult) (pediatric); E78.5 Hyperlipidemia, unspecified; I48.91 Unspecified atrial fibrillation; J06.9 Acute upper respiratory infection, unspecified; B34.9 Viral infection, unspecified; Z79.51 Long term (current) use of inhaled steroids; Z99.81 Dependence on supplemental oxygen; Z86.718 Personal history of other venous thrombosis and embolism; Z87.891 Personal history of nicotine dependence
CPT/HCPCS: 36415; 70450; 71046; 80048; 80053; 80061; 81001; 83735; 84100; 84145; 84443; 84484; 85025; 87633; 93005; 94640; 94668; 97162; 97166; 99252; 99285; P9612; A4216; G0463; J1938

== ENCOUNTER → 2025-05-07 | Outpatient (CLI) | payer MEDICARE, BC, SELFPAY ==
[2025-05-07 12:53] LABS: Hematocrit 36.9 % (37-47); Hemoglobin 11.0 g/dL (12.0-15.0); Immature Granulocytes Count 0.060 X10^3/uL (0.0-0.0); Mean Corp Hgb Conc 29.8 g/dL (32-36); Mean Corpuscular Volume 101.7 fL (81-99); Mean Platelet Vol. 10.6 fl (6.2-12.0); NRBC Flagged by Analyzer 0 % (0-5); Platelet Count 291 K/mm3 (150-450); RBC Distribution Width CV 14.6 % (11.6-14.6); RBC Distribution Width SD 54.4 fl (35.1-43.9); Red Blood Count 3.63 M/mm3 (4.2-5.4); White Blood Count 10.0 K/mm3 (4.4-11.0)
[2025-05-07 13:36] LABS: Anion Gap 10 (5-15); BUN 16 mg/dL (4-19); BUN/Creat Ratio 23.3 RATIO (10-20); Calcium,Total 9.8 mg/dL (7.6-11.0); Carbon Dioxide 41.3 mmol/L (21.0-32.0); Chloride 91 mmol/L (98-108); Glucose 118 mg/dL (70-99); Potassium 4.3 mmol/L (3.3-5.1); Pro- Brain NATRIURETIC PEPTIDE 2566 pg/mL (<=900)
--- NOTE | 2025-05-07 14:32 | RAD_ITS ---
PROCEDURE: CHEST PA AND LATERAL 05/07/2025 REASON FOR EXAM: BRAGG TECHNIQUE: CHEST PA AND LATERAL COMPARISON: Prior radiograph dated February 19, 2025. FINDINGS: Hardware: None Heart: Mild cardiomegaly. Mediastinum: Calcification in the of the aortic arch. Lungs: There are increased interstitial markings more pronounced at the lung bases which is unchanged. This most likely represents scarring. Emphysematous changes in the upper lobes more on the right side. Bones: The bones are unremarkable. RAD/Chest PA and Lateral IMPRESSION: Findings suggestive of pulmonary scarring. Reading Location: [place] [id number]
--- OUTSIDE RECORDS SUMMARY | 2025-05-07 19:42 | XMS RPT_ITS | CCD ---
Author Organization [facility] CliniSywy Care Team Providers Care Payment Processor Name Role Phone MARGOT GALVAN Unavailable Unavailable MARGOT GALVAN Unavailable Unavailable MARGOT GALVAN Unavailable Unavailable Phuc Martines DO Primary Care Provider Phuc Martines DO Primary Care Provider Phuc Martines DO Primary Care Provider Phuc Martines DO Primary Care Provider Hodan Christine PA-C Unavailable Phuc Martines DO Primary Care Provider Ad ACCURACY EXPERT.NEWSSTAND VENDOR, Vicky Person Unavailable Fernando ACCURACY EXPERT.Pratibha GAN Unavailable Dr. Phuc Martines DO Primary Care Provider [phone] Dr. Linwood Ivy DO Emergency Provider Errol ARELLANO, Dr. Mejía Admit Provider Dr. Kym Norton MD Other Provider Robert ARELLANO, Dr. Yee Queen Attending Provider Dr. Claudia Valerio DO Other Provider Dr. Claudia Valerio DO Attending Provider Dr. Mercy Purvis MD Attending Provider Dr. Yee Jones MD Other Provider Dr. Phuc Martines DO Referring Provider Dr. Bryan Elena MD Attending Provider Meena ACCURACY EXPERT.NEWSSTAND VENDORTerrie Unavailable [phone] Madan ARELLANO, Dr. Williamson Emergency Provider Martinez ARELLANO, Dr. Virginia Ceron Admit Provider Martinez ARELLANO, Dr. Virginia Ceron Attending Provider Martinez ARELLANO, Dr. Virginia Ceron Other Provider Collin ARELLANO, Dr. Vazquez Attending Provider Collin ARELLANO, Dr. Vazquez Other Provider [phone] HARPSTER, MARICRUZ Attending Unavailable HARPSTER, MARICRUZ Referring Unavailable MARTINES, PHUC L Primary Care Unavailable MARTINES, PHUC L Referring Unavailable MARTINES, PHUC L Primary Care Unavailable MARTINES, PHUC L Attending Unavailable MARTINES, PHUC L Primary Care Unavailable JANETTE DAMON Attending Unavailable MARTINES, PHUC L Primary Care Unavailable MARTINES, PHUC L Referring Unavailable MARTINES, PHUC L Primary Care Unavailable MARTINES, PHUC L Referring Unavailable MARTINES, PHUC L Primary Care Unavailable HARPSTER, MARICRUZ Referring Unavailable MARTINES, PHUC L Primary Care Unavailable HARPSTER, MARICRUZ Attending Unavailable HARPSTER, MARICRUZ Referring Unavailable MARTINES, PHUC L Primary Care Unavailable JANETTE DAMON Attending Unavailable MARTINES, PHUC L Primary Care Unavailable MARITNES, PHUC L Primary Care Unavailable DAMON EUGENE Attending Unavailable DIANA GONZALEZ Attending Unavailable MARTINES, PHUC L Primary Care Unavailable TERRIE CARSON Attending Unavailable MARTINES, PHUC L Primary Care Unavailable LISA GOODMAN Attending Unavailable MARTINES, PHUC L Primary Care Unavailable LISA GOODMAN Attending Unavailable MARTINES, PHUC L Primary Care Unavailable HARPSTER, MARICRUZ Referring Unavailable MARTINES, PHUC L Primary Care Unavailable Virginia Henriquez Consulting Unavailable Martines, Phuc Primary Care Unavailable George Polanco Attending Unavailable Virginia Henriquez Admitting Unavailable Collin, George Consulting Unavailable Martines, Phuc Primary Care Unavailable Dane Kurtz Attending Unavailable Yee Jones Attending Unavailable Kym Norton Admitting Unavailable Kym Norton Consulting Unavailable Martines, Phuc Primary Care Unavailable Claudia Valerio Consulting Unavailable Virginia Henriquez Consulting Unavailable Martines, Phuc Primary Care Unavailable Virginia Henriquez Admitting Unavailable George Polanco Attending Unavailable Phuc Martines Primary Care Unavailable Phuc Martines Referring Unavailable Bryan Elena Attending Unavailable Kym Norton Admitting Unavailable Kym Norton Attending Unavailable Kym Norton Consulting Unavailable Phuc Martines Primary Care Unavailable Claudia Valerio Attending Unavailable Claudia Valerio Consulting Unavailable Yee Jones Attending Unavailable Yee Jones Consulting Unavailable Phuc Martines Primary Care Unavailable Mercy Purvis Attending Unavailable Virginia Henriquez Attending Unavailable Kim Arellano Attending Provider Kim Arellano Referring Provider Allergies Allergy Classification Reported Allergen(s) Allergy Type Date of Onset Reaction(s) Facility (20 sources) Naproxen; Translations: [NAPROXEN] Drug Allergy 0 [facility] Work Phone: (5 sources) Ibuprofen Drug Allergy 5 [facility] (3 sources) Nitrofurantoin Drug Allergy [address] [facility] (1 source) Ibuprofen Drug Allergy 5 [facility] (1 source) Nitrofurantoin Drug Allergy 5 [facility] Medications Current Medications Medication Drug Class(es) [...] solution (20 sources) Anticholinergic, beta2-Adrenergic Agonist Start: take 1 mL by inhalation every six [...] tablet (1 source) Penicillin-class Antibacterial Start: 03-13-20 End: 03-23-20 24 take 1 tablet by mouth twice daily amoxicillin-clavula douglas potassium (AUGMENTIN) 875-125 mg per tablet Indications: Chronic obstructive pulmonary disease, unspecified COPD type ([facility]) , Acute bronchitis with chronic obstructive pulmonary disease (COPD) (HCC) ([facility]) , Acute otitis media, left Take 1 tablet by mouth two times a day for 10 days. 20 tablet 0 03/13/2024 03/23/2024 Active apixaban 5 mg oral tablet (13 sources) Factor Xa Inhibitor Start: 02-24-20 End: 05-07-20 25 take 1 tablet by mouth twice daily Apixaban (Eliquis) 5 mg tablet Active 5 mg PO TWICE A DAY 180 May 07, 2025 2:13pm blood thinner ascorbic acid 500 mg oral capsule (9 sources) Vitamin C Start: 11-13-19 18 End: 03-30-20 take 1 capsule by mouth once daily as needed Ascorbic Acid (Vitamin C) 500 mg capsule Active 500 mg PO DAILY as needed for supplement March 30, 2025 11:32am Ascorbic Acid / Bioflavonoids (20 sources) Vitamin C take 1 capsule by mouth once daily ASCORBIC ACID/BIOFLAVONOIDS (SIVAN C ORAL) Take 1 capsule by mouth once daily. Active take 1 capsule by mouth once jigna ly ASCORBIC ACID/BIOFLAVONOIDS (SIVAN C ORAL) Take 1 capsule by mouth once daily. 0 Active Comment on above: Take 1 capsule by [facility] once daily. atorvastatin 40 mg oral tablet (3 sources) HMG-CoA Reductase Inhibitor Start: 5 End: 5 take 1 tablet by mouth at bedtime Atorvastatin 40 mg tablet Active 40 mg PO AT BEDTIME 90 May 07, 2025 2:14pm cinnamon bark 500 mg oral capsule (11 sources) Start: 5 take 1 capsule by mouth once daily Cinnamon Bark (Cinnamon) 500 mg capsule Active 500 mg PO daily March 30, 2025 12:00am supplement cinnamon bark (C INNAMON ORAL) Take by [...] O2 at night and 6L with exertion. dapagliflozin 10 mg oral tablet (1 source) Sodium-Glucose Cotransporter 2 Inhibitor Start: 05-07-20 take 1 tablet by mouth once daily in the morning Dapagliflozin Propanediol (Farxiga) 10 mg tablet Active 10 mg PO EVERY MORNING 30 May 07, 2025 12:00am 24 hr dilTIAZem hydrochloride 180 mg extended release oral capsule (3 sources) Calcium Channel Stefanie Start: 04-26-20 End: 05-07-20 take 1 capsule by mouth every twelve hours Diltiazem Hcl 180 mg capsule,extended release 24hr Active 180 mg PO EVERY 12 HOURS 180 May 07, 2025 2:14pm doxycycline monohydrate 100 mg oral tablet (3 sources) Tetracycline-class Drug Start: 04-26-20 End: 05-03-20 take 1 tablet by mouth twice daily [...] oral tablet (1 source) Azole Antifungal Start: 04-01-2024 End: 04-04-2024 fluconazole (DIFLUCAN) 150 mg tablet Take 1 tablet by mouth once daily for 3 days. Repeat in 3 days as needed. 3 tablet 1 04/01/2024 04/04/2024 Active Hmyirojhbqh-Cepovbyyd-Md lanter (5 sources) Start: 02-19-2025 Papfrniolwp-Isjmfqqje-V ilanter (Trelegy Ellipta) 200-62.5-25 mcg blister with device Active 1 NMA INHALATION DAILY February 19, 2025 12:00am sob Start: 02-19-2025 Fluticasone-Um eclidin-Vilanter (Trelegy Ellipta) 200-62.5-25 mcg blister with device Active 1 NMA INHALATION DAILY February 19, 2025 12:00am tbhlnwcakkd-idxshrhcs-rssiiz er (TRELEGY ELLIPTA) 200-62.5-25 mcg inhalation powder (13 sources) Start: 12-25-2024 take 1 puff(s) by inhalation once daily zrjncpbaiyc-bpfsaywvp-djpvvrvp (TRELEGY ELLIPTA) 200-62.5-25 mcg inhalation powder Inhale 1 Puff as instructed once daily. 60 Each 11 12/25/2024 Active furosemide 40 mg oral tablet (13 sources) L o o p D i u r e t i c Start: 02-23-2025 End: 05-07-2025 take 1 tablet by mouth twice daily Furosemide 40 mg tablet Active 40 mg PO TWICE A DAY 180 3 May 07, 2025 2:14pm diuretic guaiFENesin 1200 mg oral tab let (14 sources) Start: 09-28-2022 take 2 tablets by mouth twice daily [...] on above: Take 2 tablets by mo [facility] twice daily. mecobalamin 1 mg chewable tablet (11 sources) Start: 03-30-2025 take 1 tablet by mouth once daily Mecobalamin (Vitamin B12) 1,000 mcg tablet,chewable Active 1000 ug PO daily March 30, 2025 12:00am supplement take 1000 ug by mouth once daily mecobalamin (B12 ACTIVE ORAL) Take 1,000 mcg by mouth once daily. Active metoprolol tartrate 50 mg oral tablet (13 sources) beta-Adrenergic Stefanie Start: 02-23-2025 End: 05-07-2025 take 1 tablet by mouth twice daily Metoprolol Tartrate 50 mg tablet Active 50 mg PO TWICE A DAY 180 May 07, 2025 2:13pm blood pressure Multivitamin (Daily Multi-Vitamin) tablet (5 sources) Start: 02-19-2025 Multivitamin (Daily Multi-Vitamin) tablet Active 1 {tbl} PO DAILY February 19, 2025 12:00am supplement Start: 02-19-2025 Multivitamin ( Daily Multi-Vitamin) tablet Active 1 {tbl} PO DAILY February 19, 2025 12:00am multivitamin tablet (20 sources) Start: 04-07-2012 take 1 tablet by mouth once daily multivitamin tablet Take 1 tablet by mouth once daily. 0 04/07/2012 Active Comment on above: Take 1 tablet by [facility] once daily. mupirocin 0.02 mg/mg topical ointment (1 source) RNA Synthetase Inhibitor Antibacterial Start: 01-29-2024 End: 02-08-2024 mupirocin (BACTROBAN) 2 % ointment Indications: Skin infection Apply to affected area three times a day for 10 days. 22 g 0 01/29/2024 02/08/2024 Active Comment on above: Apply to affected ar ea three times a day for 10 days. nystatin [id number] unt/ml topical cream (20 sources) Polyene Antifungal Start: 04-23-2025 Nystatin 100,000 unit/gram cream Active 1 NMA TOPICAL TWICE A DAY April 23, 2025 12:00am skin rash Start: 04-20-2025 End: 05-04-2025 nystatin (MYCOSTATIN) cream [...] 05/01/2022 Discontinued Start: 04-17-2017 End: 02-19-2025 take [id number] [IU] by mouth four times daily Nystatin 500,000 UNIT/5 ML suspension Discontinued [id number] U PO 4 TIMES DAILY 1 0 April 17, 2017 12:00am February 19, 2025 2:18pm 1 week supply Comment on above: Apply 1 application to affected area four times daily. Oxygen, Home (Home Oxygen) (5 sources) Start: 11-13-2017 Oxygen, Home (Home Oxygen) Active 2 - 4 LPM NASAL AT BEDTIME November 13, 2017 1:00am sob/copd Start: 11-13-2017 Oxygen, Home ( Home Oxygen) Active 2 - 4 LPM NASAL AT BEDTIME November 13, 2017 1:00am OXYGEN, HOME THERAPY, (20 sources) Start: 10-12-2022 OXYGEN, HOME T HERAPY, Indications: [...] chloride 20 meq extended release oral tablet (13 sources) Start: 02-23-2025 End: 05-07-2025 Potassium Chloride (Klor-Con M20) 20 mEq tablet,ER particles/crystals Active 20 meq PO TWICE A DAY 180 May 07, 2025 2:13pm supplement sodium chloride 0.111 meq/ml nasal spray (20 sources) Start: 02-19-2025 Sodium Chloride ([place] Saline) 0.65 % aerosol,spray Active 1 NMA INTRANASAL TWICE A DAY as needed for dry nasal passages February 19, 2025 12:00am Start: 02-09-2022 End: 05-11-2023 sodium chloride 0.9 % (flush ) 10 mL (BD POSIFLUSH) Completed/Discontinued Medications Medication Drug Class(es) Dates Sig (Normalized) Sig (Original) Albuterol Sulfate (Proair Hfa) 1 PUFF inhaler (5 sources) Start: 04-15-2017 End: 02-19-2025 Albuterol Sulfate (Proair Hfa) 1 PUFF inhaler Discontinued 2 NMA INHALATION EVERY 4 HOURS NEEDED as needed for Shortness Of Breath April 15, 2017 12:00am February 19, 2025 2:13pm amLODIPine 10 mg oral tablet (20 sources) Dihydropyridine Calcium Channel Stefanie Start: 08-01-2022 End: 03-31-2025 take 1 tablet by mouth once daily Amlodipine 10 mg tablet Discontinued 10 mg PO DAILY February 19, 2025 12:00am March 24, 2025 10:40am Start: 04-15-2017 End: 02-19-2025 take 1 tablet by mouth once daily Amlodipine 5 MG tablet Discontinued 5 mg PO DAILY April 15, 2017 12:00am February 19, 2025 2:14pm blood pressure Comment on above: Take 1 tablet by vikash th once daily. Beclomethasone Diprop Inhaler (5 sources) Corticosteroid Start: 017 End: take 1 puff(s) by inhalation twice daily Beclomethasone Diprop Inhaler (Qvar 80 Mcg Inhaler) 1 PUFF inhaler Discontinued 2 NMA INHALATION TWICE A DAY April 15, 2017 12:00am February 19, 2025 2:18pm breathing Start: 04-15-2017 End: 02-19-2025 take 1 puff(s) by inhalation twice daily Beclomethasone Diprop Inhaler (Qvar 80 Mcg Inhaler) 1 PUFF inhaler Discontinued 2 NMA INHALATION TWICE A DAY April 15, 2017 12:00am February 19, 2025 2:18pm benzonatate 100 mg oral capsule (20 sources) Non-narcotic Antitussive Start: 09-28-2022 End: 06-26-2024 take 1 capsule by mouth three times daily as needed for cough benzonatate (TESSALON PERLES) 100 mg capsule Indications: COVID , Bacterial sinusitis , Chronic obstructive pulmonary disease, unspecified COPD type (HCC) Take 1 capsule by mouth three times daily as needed for cough. 30 capsule 1 09/28/2022 06/26/2024 Discontinued Comment on above: Take 1 capsule by [facility] three times daily as needed for cough. cephalexin 500 mg oral capsule (6 sources) Cephalosporin Antibacterial Start: 05-06-2024 End: 02-19-2025 take 1 capsule by mouth every six hours Cephalexin 500 mg capsule Discontinued 500 mg PO EVERY 6 HOURS 40 0 May 06, 2024 12:00am February 19, 2025 2:18pm Start: 01-29-2024 End: 02-05-2024 take 1 capsule by mouth three times daily cephALEXin (KEFLEX) 500 mg capsule Indications: Skin infection Take 1 capsule by mouth three times a day for 7 days. 21 capsule 0 01/29/2024 02/05/2024 Active Comment on above: Take 1 capsule by [facility] three times a day for 7 days. 30 actuat fluticasone furoate 0.1 mg/actuat / umeclidinium 0.0625 mg/actuat / vilanterol 0.025 mg/actuat dry powder inhaler (20 sources) Anticholinergic, Corticosteroid, beta2-Adrenergic Agonist Start: 12-03-2023 End: 12-25-2024 ysskjwqibhq-cvppaummv-mqf anter (TRELEGY ELLIPTA) 100-62.5-25 mcg inhalation powder Indications: Chronic obstructive pulmonary disease, unspecified COPD type (HCC) USE 1 INHALATION DAILY INSTRUCTED 3 Each 3 11/27/2024 12/25/2024 Discontinued (Course of therapy completed) Start: 12-06-2021 End: 12-04-2022 sfsuyqzqglp-qctjrhqxo-uffuuh er (TRELEGY ELLIPTA) 100-62.5-25 mcg inhalation powder [...] 15, 2017 12:00am February 19, 2025 2:22pm blood pressure Comment on above: Take 1 capsule by [facility] once daily. ipratropium bromide 0.2 mg/ml inhalation solution (11 sources) Anticholinergic Start: 023 End: 024 ipratropium (ATROVENT) 0.02 % nebulizer solution Indications: [...] over 5-15minutes. levoFLOXacin 500 mg oral tablet (5 sources) Quinolone Antimicrobial Start: End: take 1 tablet by mouth once daily Levofloxacin 500 MG tablet Discontinued 500 mg PO DAILY April 17, 2017 12:00am February 19, 2025 2:18pm Multivitamin (Daily Multiple) 1 EACH tablet (5 sources) Start: End: take 1 tablet by mouth once daily Multivitamin (Daily Multiple) 1 EACH tablet Discontinued 1 NMA PO DAILY April 15, 2017 12:00am February 19, 2025 2:17pm nitrofurantoin, macrocrystals 25 mg / nitrofurantoin, monohydrate 75 mg oral capsule (6 sources) Nitrofuran Antibacterial Start: End: take 1 capsule by mouth twice daily Nitrofurantoin Monohyd/M-Cryst 100 mg capsule Discontinued 1 NMA PO TWICE A DAY April 23, 2025 12:00am April 26, 2025 9:23am uti perflutren lipid microspheres 1.3 mL in NaCl (PF) 0.9% 10 mL injection (DEFINITY) (20 sources) Start: End: perflutren lipid microspheres 1.3 mL in NaCl (PF) 0.9% 10 mL injection (DEFINITY) predniSONE 10 mg oral tablet (7 sources) Start: End: Prednisone 10 MG tablets,dose pack Discontinued 10 mg PO DAILY 30 0 April 17, 2017 12:00am February 19, 2025 2:17pm Take 4 tabs for 3 days, then 3 tabs for 3 days, then 2 tabs for 3 days, then 1 tab for 3 days, then stop Comment on above: Take 4 tabs daily fo r 3 days, then 2 tabs daily for 3 days, then 1 tab daily for 3 days with food. Salmeterol (5 sources) beta2-Adrenergic Agonist Start: End: take 1 puff(s) by inhalation every twelve hours Salmeterol (Serevent Diskus) 1 PUFF inhaler Discontinued 1 NMA INHALATION EVERY 12 HOURS April 15, 2017 12:00am February 19, 2025 2:18pm Tiotropium [place] (Spiriva With Handihaler) 1 PUFF inhaler (5 sources) Start: End: take 1 puff(s) by inhalation once daily Tiotropium [place] (Spiriva With Handihaler) 1 PUFF inhaler Discontinued 1 NMA INHALATION DAILY April 15, 2017 12:00am February 19, 2025 2:18pm triamcinolone acetonide 5 mg/ml topical cream (20 sources) Corticosteroid Start: End: Triamcinolone Acetonide 0.5 % cream Discontinued 1 NMA TOPICAL TWICE A DAY as needed for itching February 19, 2025 12:00am April 24, 2025 7:52am Start: 08-14-2023 triamcinolone acetonide (KENALOG) 0.5 % [...] For rash/itching. Apply sparingly. Avoid face/skin fold. Problems Active Problems Problem Classification Problem Date Documented Da te Episodic/Chronic Alcohol-related disorders (8 sources) Alcohol abuse; Translations: [Alcohol abuse, uncomplicated] Onset: 04-06-2025 03-24-2025 Chronic Comment on above: 4 shots a day Allergic reactions (2 sources) Urticaria; Translations: [Urticaria, unspecified] Onset: 04-23-2025 04-23-2025 Episodic Aortic; peripheral; and visceral artery aneurysms (20 sources) Ectasia of thoracic aorta; Translations: [Thoracic aortic ectasia] Onset: 03-13-2024 03-13-2024 Chronic Benign neoplasm of uterus (20 sources) Uterine leiomyoma; Translations: [Leiomyoma of uterus, unspecified] 05-13-2009 Episodic Cardiac dysrhythmias (20 sources) Atrial flutter; Translations: [Unspecified atrial flutter] Onset: 03-31-2025 02-19-2025 Chronic Cardiac dysrhythmias (3 sources) Tachycardia; Translations: [Tachycardia, unspecified] Onset: 04-23-2025 04-23-2025 Episodic Cardiac dysrhythmias (5 sources) Cardiac dysrhythmias Chronic obstructive pulmonary disease and bronchiectasis (20 sources) Chronic obstructive pulmonary disease, unspecified; Translations: [Chronic obstructive lung disease] Onset: 02-03-2010 Resolved: 10-13-2019 Chronic Chronic obstructive pulmonary disease and bronchiectasis (2 sources) Chronic obstructive pulmonary disease and bronchiectasis Coma; stupor; and brain damage (2 sources) [...] [Hospital discharge follow-up] Onset: 03-01-2025 Episodic Other aftercare (1 source) Long-term current use of anticoagulant; Translations: [FDC (current) use of anticoagulants] 05-03-2025 Episodic Other connective tissue disease (1 source) Swelling of lower limb; Translations: [Other specified soft tissue disorders] 05-03-2025 Episodic Other gastrointestinal disorders (20 sources) Irritable bowel syndrome; Translations: [Irritable bowel syndrome without diarrhea] Onset: 08-13-2008 05-13-2009 Chronic Other hematologic conditions (4 sources) Splenic cyst; Translations: [Cyst of spleen] Episodic Other lower respiratory disease (13 sources) Dyspnea; Translations: [Dyspnea, unspecified] Episodic Other lower respiratory disease (6 sources) Multiple nodules of lung; Translations: [Other nonspecific abnormal finding of lung field] 12-26-2023 Episodic Other lower respiratory disease (10 sources) Dyspnea on exertion; Translations: [Other forms [...] 04-23-2025 Chronic Residual codes; unclassified (1 source) Hypersomnia, unspecified; Translations: [Hypersomnia] Onset: 04-23-2025 Chronic Residual codes; unclassified (1 source) Confusional state; Translations: [Disorientation, unspecified] 04-20-2025 Episodic Residual codes; unclassified (1 source) Acute confusion; Translations: [Disorientation, unspecified] 04-23-2025 Episodic Residual codes; unclassified (2 sources) Disorientation, unspecified; Translations: [Acute confusion] Onset: 04-20-2025 Episodic Respiratory failure; insufficiency; arrest (adult) (20 sources) Dependence on supplemental oxygen; Translations: [Dependence on supplemental oxygen] Onset: 05-06-2017 05-06-2017 Chronic Skin and subcutaneous tissue infections (7 sources) Infection of skin; Translations: [Local infection of the skin and subcutaneous tissue, unspecified] 01-29-2024 Episodic Unclassified (5 sources) see to establish care for lung disease as seen per CT Unclassified (7 sources) I48.92 - Unspecified atrial flutter Unclassified (2 sources) APPOINTMENT WITH [employer] [employer] Urinary tract infections (2 sources) Acute cystitis; [...] unspecified; Translations: [Hair thinning] Onset: 01-20-2025 Episodic Screening and history of mental health and substance abuse codes (20 sources) Ex-smoker; Translations: [Personal history of nicotine dependence] Onset: 12-25-2024 10-05-2011 Episodic Substance-related disorders (20 sources) Tobacco user; Translations: [Nicotine dependence, unspecified, uncomplicated] Resolved: 10-05-2011 10-05-2011 Chronic Results Test Name Value Interpretation Reference Range Facility Absolute lymphocyte countOrd ered By: Kim Price on 05-07-2025 Lymphocytes Auto (Unsp spec) [#/Vol] 0.78 10*3/uL Low 0.83-4.51 [facility] Absolute neutrophil countOrd ered By: Kim Price on 05-07-2025 Neutrophils (Bld) [#/Vol] 8.2 10*3/uL High 2.0-7.7 [facility] Anion gap in Serum or Plasma Ordered By: Kim Price on 05-07-2025 Anion gap [Moles/Vol] 10 mmol/L 5-15 [facility] Automated lymphocyte count a s percentage of total leukocytesOrdered By: Kim Price on 05-07-2025 Lymphocytes/100 WBC Auto (Unsp spec) 7.8 % Low 19-41 [facility] BUN/creatinine ratioOrdered By: Kim Price on 05-07-2025 Urea nitrogen/Creatinine [Mass ratio] 23.3 mg/mg High 10-20 [facility] Basophil percentageOrdered B y: Kim Price on 05-07-2025 Basophils/100 WBC (Bld) 0.6 % 0-1 [facility] Carbon dioxide, total [Moles /volume] in Central venous bloodOrdered By: Kim Price on 05-07-2025 CO2 [Moles/Vol] 41.3 mmol/L High 21.0-32.0 [facility] Chloride assayOrdered By: Cedrick Price on 05-07-2025 Chloride [Moles/Vol] 91 mmol/L Low 98-108 [facility] Eosinophil percentageOrdered By: Kim Price on 05-07-2025 Eosinophils/100 WBC (Bld) 0.7 % 0-5 [facility] Erythrocyte distribution wid th ratioOrdered By: Kim Price on 05-07-2025 Erythrocyte distribution width (RBC) [Ratio] 14.6 % 11.6-14.6 [facility] Erythrocyte distribution wid th standard deviationOrdered By: Kim Price on 05-07-2025 Erythrocyte distribution width (RBC) [Ratio] 54.4 fl High 35.1-43.9 [facility] Glomerular filtration rate ( GFR) estimation/1.73 sq m using serum, plasma, or whole bOrdered By: Kim Price on 05-07-2025 GFR/1.73 sq M.predicted among non-blacks MDRD (S/P/Bld) [Vol rate/Area] 95 mL/min/{1.73_m2} >60 [facility] Comment on above: mL/min/1.73m2 CKD-EP I Creatinine Equation (2020) Hematocrit Auto (Bld) [Volum e fraction]Ordered By: Kim Price on 05-07-2025 Hematocrit (Bld) [Volume fraction] 36.9 % Low 37-47 [facility] Hemoglobin measurementOrdere d By: Kim Price on 05-07-2025 Hemoglobin (Bld) [Mass/Vol] 11.0 g/dL Low 12.0-15.0 [facility] Immature granulocytes/100 WB C Auto (Bld)Ordered By: Kim Price on 05-07-2025 Immature granulocytes/100 WBC (Bld) 0.600 % 0.0-0.9 [facility] Comment on above: IG% - Immature Granu locytes (promyelocytes, myelocytes and metamyelocytes) > 1% indicates that a LEFT SHIFT is Present. MCV (mean corpuscular volume ) determinationOrdered By: Kim Price on 05-07-2025 MCV (RBC) [Entitic vol] 101.7 fL High 81-99 [facility] Mean corpuscular hemoglobin (MCH) determinationOrdered By: Kim Price on 05-07-2025 MCH (RBC) [Entitic mass] 30.3 pg 27.0-32.0 [facility] Mean corpuscular hemoglobin concentration (MCHC) determinationOrdered By: Kim Price on 05-07-2025 MCHC (RBC) [Mass/Vol] 29.8 g/dL Low 32-36 [facility] Mean platelet volume determi nationOrdered By: Kim Price on 05-07-2025 Platelet mean volume (Bld) [Entitic vol] 10.6 fL 6.2-12.0 [facility] Monocyte percentageOrdered B y: Kim Price on 05-07-2025 Monocytes/100 WBC (Bld) 8.3 % 0-10 [facility] Natriuretic peptide.B prohor gonzalo N-Terminal [Mass/volume] in Serum or PlasmaOrdered By: Kim Price on 05-07-2025 Natriuretic peptide.B prohormone N-Terminal [Mass/Vol] 2566 pg/mL High <900 [facility] Comment on above: Heart Failure Unlike ly: < 300 pg/mLHeart Failure Likely< 50 Years: > 450 pg/mL50-75 Years: > 900 pg/mL>75 Years: > 1800 pg/mL Neutrophil percentageOrdered By: Kim Price on 05-07-2025 Neutrophils/100 WBC (Bld) 82.0 % High 47-70 [facility] Nucleated red blood cell per centageOrdered By: Kim Price on 05-07-2025 Nucleated RBC/100 WBC (Bld) [Ratio] 0 % 0-5 [facility] Platelet countOrdered By: Cedrick Price on 05-07-2025 Platelets (Bld) [#/Vol] 291 10*3/uL 150-450 [facility] Potassium measurement (mass/ volume)Ordered By: Kim Price on 05-07-2025 Potassium (Unsp spec) [Mass/Vol] 4.3 mmol/L 3.3-5.1 [facility] RBC Auto (Bld) [#/Vol]Ordere d By: Kim Price on 05-07-2025 RBC (Bld) [#/Vol] 3.63 10*6/uL Low 4.2-5.[address] [facility] Serum creatinine measurement (mass/volume)Ordered By: Kim Price on 05-07-2025 Creatinine [Mass/Vol] 0.69 mg/dL Low 0.70-1.20 [facility] Serum glucose measurement (m ass/volume)Ordered By: Kim Price on 05-07-2025 Glucose [Mass/Vol] 118 mg/dL High 70-99 [facility] Serum or plasma calcium tad urement (mass/volume)Ordered By: Kim Price on 05-07-2025 Calcium [Mass/Vol] 9.8 mg/dL 7.6-11.0 [facility] Serum or plasma urea nitroge n measurement (mass/volume)Ordered By: Kim Price on 05-07-2025 Urea nitrogen [Mass/Vol] 16 mg/dL 4-19 [facility] Sodium levelOrdered By: Odalys Price on 07-11-2025 Sodium [Moles/Vol] 142 mmol/L 133-145 [facility] White blood cell (WBC) count Ordered By: Kim Price on 05-07-2025 WBC (Bld) [#/Vol] 10.0 10*3/uL 4.4-11.0 [facility] Discharge Instructionon 07 Discharge Instruction [facility] Medical Records Department [address] [place] [address] Instructions for Home/Discharge Instructions 04/27/25 1112 MR#: [id number] Acct: [id number] Name: LISA LUCERO Rep #: [id number] : 1955 69 From: George Polanco MD PCP: Dr. Phuc Martines, DO Status:ADM IN Discharge Instructions Diet Discharge Diet: Low fat / Low cholesterol and 2000 mg Sodium Diet DC O2, CPAP, BIPAP needs Home O2 Discharge instructions: Yes Type of respiratory needs?: Oxygen Oxygen frequency: Continuous Continuous oxygen liters per minute: 5 Dressing / Incision Weight Bearing Status: Weight bearing as tolerated Dressing / Incision Call your doctor if you observe: Fever of 101 or Higher, Coldness, Increased Pain, Numbness or Tingling, Change in Color, Inability to urinate, Inability to have a bowel movement, Shortness of breath, Dizziness, Fainting spells, Swelling in the ankles, Chest pain, Prolonged hiccupping, Increased palpitations (irregular heartbeat) and Calf discomfort Follow Up Care Test Results: Test results from this visit will be discussed in further detail at your follow-up appointment, if applicable. Discharge Plan Admission Admit Date/Time: 04/23/25 21:51 Primary Reason for Your Visit: A-fib RVR/CHF exacerbation Attending Provider: George Polanco Primary Care Provider: Phuc Martines Consulting Providers: Virginia Henriquez Discharge Orders/Prescriptions Prescriptions: New atorvastatin 40 mg Tablet 40 mg PO QHS 30 Days Qty: 30 2RF diltiazem HCl 180 mg Capsule,Extended Release 24hr 180 mg PO Q12 30 Days Qty: 60 1RF Continued cinnamon bark [Cinnamon] 500 mg capsule 500 mg PO QDAY mecobalamin (vitamin B12) 1,000 mcg tablet,chewable 1,000 mcg PO QDAY Oxygen, Home [Home Oxygen] 2 - 4 lpm NASAL QHS ascorbic acid (vitamin C) 500 mg capsule 500 mg PO DAILY PRN (Reason: supplement) Patient Comments: only takes in winter albuterol sulfate 90 mcg/actuation aerosol powdr breath activated 2 inh inhalation Q6H PRN (Reason: shortness of breath) Trelegy Ellipta 200-62.5-25 mcg blister with device 1 ea inhalation DAILY ipratropium-albuterol 0.5 mg-3 mg(2.5 mg base)/3 mL solution for nebulization 3 ml inhalation Q6H PRN (Reason: shortness of breath) multivitamin [Daily Multi-Vitamin] Tablet 1 tab PO DAILY [place] Saline 0.65 % aerosol,spray 1 spray intranasal BID PRN (Reason: dry nasal passages) guaifenesin [Mucus Relief ER] 1,200 MG tablet 1,200 mg PO BID PRN (Reason: cough) metoprolol tartrate 50 mg Tablet 50 mg PO BID Qty: 60 2RF furosemide 40 mg tablet 40 mg PO BID Qty: 60 2RF potassium chloride [Klor-Con M20] 20 mEq tablet,ER particles/crystals 20 meq PO BID Qty: 60 2RF Eliquis 5 mg Tablet 5 mg PO BID Qty: 60 2RF nystatin 100,000 unit/gram cream 1 applic topical BID Discontinued nitrofurantoin monohyd/m-cryst 100 mg capsule 1 cap PO BID Referrals / Follow Up: Mercy Purvis MD [Med Staff - Active Staff] - Within 1 Month Yonathan Gonzalez DO [Med Staff - Active Staff] - Within 1 Month (Respiratory failure, COPD on oxygen) Phuc Martines DO [Primary Care Provider] - Within 2 Weeks Irina Elam PA [Med Staff - Adv Practice Prof] - Within 2 Weeks Disposition Disposition (needs filled in before D/C Order can be placed): Home Health Service 04/27/25 1113 George Polanco MD CC: Dr. Virginia Henriquez MD; Dr. Phuc Martines DO Signed Normal [facility] Absolute lymphocyte countOrd ered By: George Polanco on 04-26-2025 Lymphocytes Auto (Unsp spec) [#/Vol] 0.48 10*3/uL Low 0.83-4.51 [facility] Absolute neutrophil countOrd ered By: George Polanco on 04-26-2025 Neutrophils (Bld) [#/Vol] 8.0 10*3/uL High 2.0-7.7 [facility] Anion gap in Serum or Plasma Ordered By: George Polanco on 04-26-2025 Anion gap [Moles/Vol] 8 mmol/L 5-15 [facility] Automated lymphocyte count a s percentage of total leukocytesOrdered By: George Polanco on 04-26-2025 Lymphocytes/100 WBC Auto (Unsp spec) 5.2 % Low 19-41 [facility] BUN/creatinine ratioOrdered By: George Polanco on 04-26-2025 Urea nitrogen/Creatinine [Mass ratio] 32.1 mg/mg High 10-20 [facility] Basic Metabolic Profile (BMP )on 04-26-2025 BUN/CRE 32.1 RATIO High 10- [facility] Comment on above: Performed By: #### L 100.0100, L500.2500 ####[facility] [address] [place], [address] Calcium [Mass/Vol] 9.4 mg/dL Normal 7.6-11.0 [facility] Comment on above: Performed By: #### L 100.0100, L500.2500 ####[facility] [address] [place], [address] Chloride [Moles/Vol] 96 mmol/L Low 98-108 [facility] Comment on above: Performed By: #### L 100.0100, L500.2500 ####[facility] [address] [place], [address] CO2 [Moles/Vol] 37.1 mmol/L High 21.0-32.0 [facility] Comment on above: Performed By: #### L 100.0100, L500.2500 ####[facility] [address] [place], [address] Creatinine [Mass/Vol] 0.72 mg/dL Normal 0.70-1.20 [facility] Comment on above: Performed By: #### L 100.0100, L500.2500 ####[facility] [address] [place], [address] ECRCL 85.43 ml/min Normal 50-250 [facility] Comment on above: Performed By: #### L 100.0100, L500.2500 ####[facility] [address] [place], [address] GAP 8 Normal 5-15 [facility] Comment on above: Performed By: #### L 100.0100, L500.2500 ####[facility] [address] [place], [address] GFR/1.73 sq M.predicted among non-blacks MDRD (S/P/Bld) [Vol rate/Area] 92 mL/min/{1.73_m2} Normal >60 [facility] Comment on above: Result Comment: mL/m in/1.73m2 CKD-EPI Creatinine Equation (2020) Performed By: #### L 100.0100, L500.2500 ####[facility] [address] [place], [address] Glucose [Mass/Vol] 125 mg/dL High 70-99 [facility] Comment on above: Performed By: #### L 100.0100, L500.2500 ####[facility] [address] [place], [address] Potassium [Moles/Vol] 4.6 mmol/L Normal 3.3-5.1 [facility] Comment on above: Performed By: #### L 100.0100, L500.2500 ####[facility] [address] [place], [address] Sodium [Moles/Vol] 142 mmol/L Normal 133-145 [facility] Comment on above: Performed By: #### L 100.0100, L500.2500 ####[facility] [address] [place], [address] Urea nitrogen [Mass/Vol] 23 mg/dL High 4-19 [facility] Comment on above: Performed By: #### L 100.0100, L500.2500 ####[facility] [address] [place], [address] Basophil percentageOrdered B y: Georgecarolyn Polanco on 04-26-2024 Basophils/100 WBC (Bld) 0.3 % 0-1 [facility] CBC W/Diff, Automatedon 03-30-2024 Absolute Lymph 0.48 X10 3/uL Low 0.83-4.51 [facility] Comment on above: Performed By: #### L 100.0100, L500.2500 ####[facility] [address] [place], [address] Absolute Neut 8.0 X10 3/uL High 2.0-7.7 [facility] Comment on above: Performed By: #### L 100.0100, L500.2500 ####[facility] [address] [place], [address] Basophils/100 WBC (Bld) 0.3 % Normal 0-1 [facility] Comment on above: Performed By: #### L 100.0100, L500.2500 ####[facility] [address] [place], [address] Eosinophils/100 WBC (Bld) 0.9 % Normal 0-5 [facility] Comment on above: Performed By: #### L 100.0100, L500.2500 ####[facility] [address] [place], [address] Erythrocyte distribution width (RBC) [Ratio] 14.3 % Normal 11.6-14.6 [facility] Comment on above: Performed By: #### L 100.0100, L500.2500 ####[facility] [address] [place], [address] Hematocrit (Bld) [Volume fraction] 38.8 % Normal 37-47 [facility] Comment on above: Performed By: #### L 100.0100, L500.2500 ####[facility] [address] [place], [address] Hemoglobin (Bld) [Mass/Vol] 11.6 g/dL Low 12.0-15.0 [facility] Comment on above: Performed By: #### L 100.0100, L500.2500 ####[facility] [address] [place], [address] IG% 0.700 Normal 0.0-0.9 [facility] Comment on above: Result Comment: IG% - Immature Granulocytes (promyelocytes, myelocytes and metamyelocytes) > 1% indicates that a LEFT SHIFT is Present. Performed By: #### L 100.0100, L500.2500 ####[facility] [address] [place], [address] Lymphocytes/100 WBC (Bld) 5.2 % Low 19-41 [facility] Comment on above: Performed By: #### L 100.0100, L500.2500 ####[facility] [address] [place], [address] MCH (RBC) [Entitic mass] 30.8 pg Normal 27.0-32.0 [facility] Comment on above: Performed By: #### L 100.0100, L500.2500 ####[facility] [address] [place], [address] MCHC (RBC) [Mass/Vol] 29.9 g/dL Low 32-36 [facility] Comment on above: Performed By: #### L 100.0100, L500.2500 ####[facility] [address] [place], [address] MCV (RBC) [Entitic vol] 102.9 fL High 81-99 [facility] Comment on above: Performed By: #### L 100.0100, L500.2500 ####[facility] [address] [place], [address] Monocytes/100 WBC (Bld) 5.9 % Normal 0-10 [facility] Comment on above: Performed By: #### L 100.0100, L500.2500 ####[facility] [address] [place], [address] Neutrophils/100 WBC (Bld) 87.0 % High 47-70 [facility] Comment on above: Performed By: #### L 100.0100, L500.2500 ####[facility] [address] [place], [address] Nucleated RBC (Bld) [#/Vol] 0 10*3/uL Normal 0-5 [facility] Comment on above: Performed By: #### L 100.0100, L500.2500 ####[facility] [address] [place], [address] Platelet mean volume (Bld) [Entitic vol] 11.1 fL Normal 6.2-12.0 [facility] Comment on above: Performed By: #### L 100.0100, L500.2500 ####[facility] [address] [place], [address] Platelets (Bld) [#/Vol] 266 10*3/uL Normal 150-450 [facility] Comment on above: Performed By: #### L 100.0100, L500.2500 ####[facility] [address] [place], [address] RBC (Bld) [#/Vol] 3.77 10*6/uL Low 4.2-5.[address] [facility] Comment on above: Performed By: #### L 100.0100, L500.2500 ####[facility] [address] [place], [address] RDW SD 54.2 fl High 35.1-43.9 [facility] Comment on above: Performed By: #### L 100.0100, L500.2500 ####[facility] [address] [place], [address] WBC (Bld) [#/Vol] 9.2 10*3/uL Normal 4.4-11.0 [facility] Comment on above: Performed By: #### L 100.0100, L500.2500 ####[facility] [address] [facility] [place], [address] Carbon dioxide, total [Moles /volume] in Central venous bloodOrdered By: George Polanco on 04-26-2025 CO2 [Moles/Vol] 37.1 mmol/L High 21.0-32.0 [facility] Chloride assayOrdered By: Ashley Polanco on 04-26-2025 Chloride [Moles/Vol] 96 mmol/L Low 98-108 [facility] Discharge Instructionon 03-30 Discharge Instruction [facility] Medical Records Department [address] [place] [address] Instructions for Home/Discharge Instructions 04/26/25 0919 MR#: [id number] Acct: [id number] Name: LISA LUCERO Bora Rep #: [id number] : 1955 69 From: George Polanco MD PCP: Dr. Phuc Martines, DO Status:ADM IN Discharge Instructions Diet Discharge Diet: Low fat / Low cholesterol and 2000 mg Sodium Diet DC O2, CPAP, BIPAP needs Home O2 Discharge instructions: Yes Type of respiratory needs?: Oxygen Oxygen frequency: Continuous Continuous oxygen liters per minute: 5 Dressing / Incision Discharge Activity: Return to Normal Activity Weight Bearing Status: Weight bearing as tolerated Dressing / Incision Call your doctor if you observe: Fever of 101 or Higher, Coldness, Increased Pain, Numbness or Tingling, Change in Color, Inability to urinate, Inability to have a bowel movement, Shortness of breath, Dizziness, Fainting spells, Swelling in the ankles, Chest pain, Prolonged hiccupping, Increased palpitations (irregular heartbeat) and Calf discomfort Follow Up Care When: IN 2 WEEKS Test Results: Test results from this visit will be discussed in further detail at your follow-up appointment, if applicable. Discharge Plan Admission Admit Date/Time: 04/23/25 21:51 Primary Reason for Your Visit: A-fib RVR/CHF exacerbation Attending Provider: George Polanco Primary Care Provider: Phuc Martines Consulting Providers: Virginia Henriquez Discharge Orders/Prescriptions Prescriptions: New atorvastatin 40 mg Tablet 40 mg PO QHS 30 Days Qty: 30 2RF diltiazem HCl 180 mg Capsule,Extended Release 24hr 180 mg PO Q12 30 Days Qty: 60 1RF Continued cinnamon bark [Cinnamon] 500 mg capsule 500 mg PO QDAY mecobalamin (vitamin B12) 1,000 mcg tablet,chewable 1,000 mcg PO QDAY Oxygen, Home [Home Oxygen] 2 - 4 lpm NASAL QHS ascorbic acid (vitamin C) 500 mg capsule 500 mg PO DAILY PRN (Reason: supplement) Patient Comments: only takes in winter albuterol sulfate 90 mcg/actuation aerosol powdr breath activated 2 inh inhalation Q6H PRN (Reason: shortness of breath) Trelegy Ellipta 200-62.5-25 mcg blister with device 1 ea inhalation DAILY ipratropium-albuterol 0.5 mg-3 mg(2.5 mg base)/3 mL solution for nebulization 3 ml inhalation Q6H PRN (Reason: shortness of breath) multivitamin [Daily Multi-Vitamin] Tablet 1 tab PO DAILY [place] Saline 0.65 % aerosol,spray 1 spray intranasal BID PRN (Reason: dry nasal passages) guaifenesin [Mucus Relief ER] 1,200 MG tablet 1,200 mg PO BID PRN (Reason: cough) metoprolol tartrate 50 mg Tablet 50 mg PO BID Qty: 60 2RF furosemide 40 mg tablet 40 mg PO BID Qty: 60 2RF potassium chloride [Klor-Con M20] 20 mEq tablet,ER particles/crystals 20 meq PO BID Qty: 60 2RF Eliquis 5 mg Tablet 5 mg PO BID Qty: 60 2RF nystatin 100,000 unit/gram cream 1 applic topical BID Discontinued nitrofurantoin monohyd/m-cryst 100 mg capsule 1 cap PO BID Referrals / Follow Up: Mercy Purvis MD [Med Staff - Active Staff] - Within 1 Month Phuc Martines DO [Primary Care Provider] - Within 2 Weeks Irina Elam PA [Med Staff - Adv Practice Prof] - Within 2 Weeks Yonathan Gonzalez DO [Med Staff - Active Staff] - Within 1 Month (Respiratory failure, COPD on oxygen) Disposition Disposition (needs filled in before D/C Order can be placed): Home, Self Care 04/26/25 0932 George Polanco MD CC: Dr. Virginia Henriquez MD; Dr. Phuc Martines DO Signed Normal [facility] Eosinophil percentageOrdered By: George Polanco on 04-26-2025 Eosinophils/100 WBC (Bld) 0.9 % 0-5 [facility] Erythrocyte distribution wid th ratioOrdered By: George Polanco on 04-26-2025 Erythrocyte distribution width (RBC) [Ratio] 14.3 % 11.6-14.6 [facility] Erythrocyte distribution wid th standard deviationOrdered By: George Polanco on 04-26-2025 Erythrocyte distribution width (RBC) [Ratio] 54.2 fl High 35.1-43.9 [facility] Glomerular filtration rate ( GFR) estimation/1.73 sq m using serum, plasma, or whole bOrdered By: George Polanco on 04-26-2025 GFR/1.73 sq M.predicted among non-blacks MDRD (S/P/Bld) [Vol rate/Area] 92 mL/min/{1.73_m2} >60 [facility] Comment on above: mL/min/1.73m2 CKD-EP I Creatinine Equation (2020) Hematocrit Auto (Bld) [Volum e fraction]Ordered By: George Polanco on 04-26-2025 Hematocrit (Bld) [Volume fraction] 38.8 % 37-47 [facility] Hemoglobin measurementOrdere d By: George Polanco on 04-26-2025 Hemoglobin (Bld) [Mass/Vol] 11.6 g/dL Low 12.0-15.0 [facility] Immature granulocytes/100 WB C Auto (Bld)Ordered By: George Polanco on 04-26-2025 Immature granulocytes/100 WBC (Bld) 0.700 % 0.0-0.9 [facility] Comment on above: IG% - Immature Granu locytes (promyelocytes, myelocytes and metamyelocytes) > 1% indicates that a LEFT SHIFT is Present. MCV (mean corpuscular volume ) determinationOrdered By: George Polanco on 04-26-2025 MCV (RBC) [Entitic vol] 102.9 fL High 81-99 [facility] Mean corpuscular hemoglobin (MCH) determinationOrdered By: George Polanco on 04-26-2025 MCH (RBC) [Entitic mass] 30.8 pg 27.0-32.0 [facility] Mean corpuscular hemoglobin concentration (MCHC) determinationOrdered By: George Polanco on 04-26-2025 MCHC (RBC) [Mass/Vol] 29.9 g/dL Low 32-36 [facility] Mean platelet volume determi nationOrdered By: George Polanco on 04-26-2025 Platelet mean volume (Bld) [Entitic vol] 11.1 fL 6.2-12.0 [facility] Monocyte percentageOrdered B y: George Polanco on 04-26-2025 Monocytes/100 WBC (Bld) 5.9 % 0-10 [facility] Neutrophil percentageOrdered By: George Polanco on 04-26-2025 Neutrophils/100 WBC (Bld) 87.0 % High 47-70 [facility] Nucleated red blood cell per centageOrdered By: George Polanco on 04-26-2025 Nucleated RBC/100 WBC (Bld) [Ratio] 0 % 0-5 [facility] Platelet countOrdered By: Ashley Polanco on 04-26-2025 Platelets (Bld) [#/Vol] 266 10*3/uL 150-450 [facility] Potassium measurement (mass/ volume)Ordered By: George Polanco on 04-26-2025 Potassium (Unsp spec) [Mass/Vol] 4.6 mmol/L 3.3-5.1 [facility] RBC Auto (Bld) [#/Vol]Ordere d By: George Polanco on 04-26-2025 RBC (Bld) [#/Vol] 3.77 10*6/uL Low 4.2-5.[address] [facility] Serum creatinine measurement (mass/volume)Ordered By: George Polanco on 04-26-2025 Creatinine [Mass/Vol] 0.72 mg/dL 0.70-1.20 [facility] Serum glucose measurement (m ass/volume)Ordered By: George Polanco on 04-26-2025 Glucose [Mass/Vol] 125 mg/dL High 70-99 [facility] Serum or plasma calcium tad urement (mass/volume)Ordered By: George Polanco on 04-26-2025 Calcium [Mass/Vol] 9.4 mg/dL 7.6-11.0 [facility] Serum or plasma urea nitroge n measurement (mass/volume)Ordered By: George Polanco on 04-26-2025 Urea nitrogen [Mass/Vol] 23 mg/dL High 4-19 [facility] Sodium levelOrdered By: Orlando Polanco on 04-26-2025 Sodium [Moles/Vol] 142 mmol/L 133-145 [facility] White blood cell (WBC) count Ordered By: George Polanco on 04-26-2025 WBC (Bld) [#/Vol] 9.2 10*3/uL 4.4-11.0 [facility] Basic Metabolic Profile (BMP )on 04-25-2025 BUN/CRE 25.0 RATIO High 10-20 [facility] Comment on above: Performed By: #### L 500.4050, L500.4100, L100.0500, L501.9520 #### [facility] [address] [place], [address] Calcium [Mass/Vol] 9.3 mg/dL Normal 7.6-11.0 [facility] Comment on above: Performed By: #### L 500.4050, L500.4100, L100.0500, L501.9520 #### [facility] [address] [place], [address] Chloride [Moles/Vol] 95 mmol/L Low 98-108 [facility] Comment on above: Performed By: #### L 500.4050, L500.4100, L100.0500, L501.9520 #### [facility] [address] [place], [address] CO2 [Moles/Vol] 36.5 mmol/L High 21.0-32.0 [facility] Comment on above: Performed By: #### L 500.4050, L500.4100, L100.0500, L501.9520 #### [facility] [address] [place], [address] Creatinine [Mass/Vol] 0.67 mg/dL Low 0.70-1.20 [facility] Comment on above: Performed By: #### L 500.4050, L500.4100, L100.0500, L501.9520 #### [facility] [address] [place], [address] ECRCL 84.48 ml/min Normal 50-250 [facility] Comment on above: Performed By: #### L 500.4050, L500.4100, L100.0500, L501.9520 #### [facility] [address] [place], [address] GAP 9 Normal 5-15 [facility] Comment on above: Performed By: #### L 500.4050, L500.4100, L100.0500, L501.9520 #### [facility] [address] [place], [address] GFR/1.73 sq M.predicted among non-blacks MDRD (S/P/Bld) [Vol rate/Area] 96 mL/min/{1.73_m2} Normal >60 [facility] Comment on above: Result Comment: mL/m in/1.73m2 CKD-EPI Creatinine Equation (2020) Performed By: #### L 500.4050, L500.4100, L100.0500, L501.9520 #### [facility] [address], [address] Glucose [Mass/Vol] 130 mg/dL High 70-99 [facility] Comment on above: Performed By: #### L 500.4050, L500.4100, L100.0500, L501.9520 #### [facility] [address] [place], [address] Potassium [Moles/Vol] 4.3 mmol/L Normal 3.3-5.1 [facility] Comment on above: Performed By: #### L 500.4050, L500.4100, L100.0500, L501.9520 #### [facility] [address], [address] Sodium [Moles/Vol] 141 mmol/L Normal 133-145 [facility] Comment on above: Performed By: #### L 500.4050, L500.4100, L100.0500, L501.9520 #### [facility] [address], [address] Urea nitrogen [Mass/Vol] 17 mg/dL Normal 4-19 [facility] Comment on above: Performed By: #### L 500.4050, L500.4100, L100.0500, L501.9520 #### [facility] [address] [place], [address] CBC W/Diff, Automatedon 06-2 Absolute Lymph 0.55 X10 3/uL Low 0.83-4.51 [facility] Comment on above: Performed By: #### L 500.4050, L500.4100, L100.0500, L501.9520 #### [facility] [address] [place], [address] Absolute Neut 7.5 X10 3/uL Normal 2.0-7.7 [facility] Comment on above: Performed By: #### L 500.4050, L500.4100, L100.0500, L501.9520 #### [facility] [address] [place], [address] Basophils/100 WBC (Bld) 0.5 % Normal 0-1 [facility] Comment on above: Performed By: #### L 500.4050, L500.4100, L100.0500, L501.9520 #### [facility] [address] [place], [address] Eosinophils/100 WBC (Bld) 1.0 % Normal 0-5 [facility] Comment on above: Performed By: #### L 500.4050, L500.4100, L100.0500, L501.9520 #### [facility] [address] [place], [address] Erythrocyte distribution width (RBC) [Ratio] 14.5 % Normal 11.6-14.6 [facility] Comment on above: Performed By: #### L 500.4050, L500.4100, L100.0500, L501.9520 #### [facility] [address] [place], [address] Hematocrit (Bld) [Volume fraction] 39.3 % Normal 37-47 [facility] Comment on above: Performed By: #### L 500.4050, L500.4100, L100.0500, L501.9520 #### [facility] [address] [place], [address] Hemoglobin (Bld) [Mass/Vol] 11.9 g/dL Low 12.0-15.0 [facility] Comment on above: Performed By: #### L 500.4050, L500.4100, L100.0500, L501.9520 #### [facility] [address] [place], [address] IG% 0.300 Normal 0.0-0.9 [facility] Comment on above: Result Comment: IG% - Immature Granulocytes (promyelocytes, myelocytes and metamyelocytes) > 1% indicates that a LEFT SHIFT is Present. Performed By: #### L 500.4050, L500.4100, L100.0500, L501.9520 #### [facility] [address] [place], [address] Lymphocytes/100 WBC (Bld) 6.3 % Low 19-41 [facility] Comment on above: Performed By: #### L 500.4050, L500.4100, L100.0500, L501.9520 #### [facility] [address] [place], [address] MCH (RBC) [Entitic mass] 30.9 pg Normal 27.0-32.0 [facility] Comment on above: Performed By: #### L 500.4050, L500.4100, L100.0500, L501.9520 #### [facility] [address] [place], [address] MCHC (RBC) [Mass/Vol] 30.3 g/dL Low 32-36 [facility] Comment on above: Performed By: #### L 500.4050, L500.4100, L100.0500, L501.9520 #### [facility] [address] [place], [address] MCV (RBC) [Entitic vol] 102.1 fL High 81-99 [facility] Comment on above: Performed By: #### L 500.4050, L500.4100, L100.0500, L501.9520 #### [facility] [address] [place], [address] Monocytes/100 WBC (Bld) 6.2 % Normal 0-10 [facility] Comment on above: Performed By: #### L 500.4050, L500.4100, L100.0500, L501.9520 #### [facility] [address] [place], [address] Neutrophils/100 WBC (Bld) 85.7 % High 47-70 [facility] Comment on above: Performed By: #### L 500.4050, L500.4100, L100.0500, L501.9520 #### [facility] [address] [place], [address] Nucleated RBC (Bld) [#/Vol] 0 10*3/uL Normal 0-5 [facility] Comment on above: Performed By: #### L 500.4050, L500.4100, L100.0500, L501.9520 #### [facility] [address] [place], [address] Platelet mean volume (Bld) [Entitic vol] 10.1 fL Normal 6.2-12.0 [facility] Comment on above: Performed By: #### L 500.4050, L500.4100, L100.0500, L501.9520 #### [facility] [address] [place], [address] Platelets (Bld) [#/Vol] 286 10*3/uL Normal 150-450 [facility] Comment on above: Performed By: #### L 500.4050, L500.4100, L100.0500, L501.9520 #### [facility] [address] [place], [address] RBC (Bld) [#/Vol] 3.85 10*6/uL Low 4.2-5.[address] [facility] Comment on above: Performed By: #### L 500.4050, L500.4100, L100.0500, L501.9520 #### [facility] [address] [place], [address] RDW SD 54.5 fl High 35.1-43.9 [facility] Comment on above: Performed By: #### L 500.4050, L500.4100, L100.0500, L501.9520 #### [facility] [address] [place], [address] WBC (Bld) [#/Vol] 8.7 10*3/uL Normal 4.4-11.0 [facility] Comment on above: Performed By: #### L 500.4050, L500.4100, L100.0500, L501.9520 #### [facility] [address] [place], [address] Bilirubin, totalOrdered By: Virginia Henriquez on 04-24-2025 Bilirubin [Mass/Vol] 0.44 mg/dL 0.00-1.30 [facility] CBC W/Diff, Automatedon 03-29 Absolute Lymph 0.58 X10 3/uL Low 0.83-4.51 [facility] Comment on above: Performed By: #### L 500.4050, L500.4100, L100.0100, L501.9520 ####[facility] [address] [place], [address] Absolute Neut 7.1 X10 3/uL Normal 2.0-7.7 [facility] Comment on above: Performed By: #### L 500.4050, L500.4100, L100.0100, L501.9520 ####[facility] [address] [place], [address] Basophils/100 WBC (Bld) 0.5 % Normal 0-1 [facility] Comment on above: Performed By: #### L 500.4050, L500.4100, L100.0100, L501.9520 ####[facility] [address] [place], [address] Eosinophils/100 WBC (Bld) 1.3 % Normal 0-5 [facility] Comment on above: Performed By: #### L 500.4050, L500.4100, L100.0100, L501.9520 ####[facility] [address] [place], [address] Erythrocyte distribution width (RBC) [Ratio] 14.3 % Normal 11.6-14.6 [facility] Comment on above: Performed By: #### L 500.4050, L500.4100, L100.0100, L501.9520 ####[facility] [address] [place], [address] Hematocrit (Bld) [Volume fraction] 37.8 % Normal 37-47 [facility] Comment on above: Performed By: #### L 500.4050, L500.4100, L100.0100, L501.9520 ####[facility] [address] [place], [address] Hemoglobin (Bld) [Mass/Vol] 11.5 g/dL Low 12.0-15.0 [facility] Comment on above: Performed By: #### L 500.4050, L500.4100, L100.0100, L501.9520 ####[facility] [address] [place], [address] IG% 0.200 Normal 0.0-0.9 [facility] Comment on above: Result Comment: IG% - Immature Granulocytes (promyelocytes, myelocytes and metamyelocytes) > 1% indicates that a LEFT SHIFT is Present. Performed By: #### L 500.4050, L500.4100, L100.0100, L501.9520 ####[facility] [address] [place], [address] Lymphocytes/100 WBC (Bld) 6.8 % Low 19-41 [facility] Comment on above: Performed By: #### L 500.4050, L500.4100, L100.0100, L501.9520 ####[facility] [address] [place], [address] MCH (RBC) [Entitic mass] 30.7 pg Normal 27.0-32.0 [facility] Comment on above: Performed By: #### L 500.4050, L500.4100, L100.0100, L501.9520 ####[facility] [address] [place], [address] MCHC (RBC) [Mass/Vol] 30.4 g/dL Low 32-36 [facility] Comment on above: Performed By: #### L 500.4050, L500.4100, L100.0100, L501.9520 ####[facility] [address] [place], [address] MCV (RBC) [Entitic vol] 100.8 fL High 81-99 [facility] Comment on above: Performed By: #### L 500.4050, L500.4100, L100.0100, L501.9520 ####[facility] [address] [place], [address] Monocytes/100 WBC (Bld) 8.0 % Normal 0-10 [facility] Comment on above: Performed By: #### L 500.4050, L500.4100, L100.0100, L501.9520 ####[facility] [address] [place], [address] Neutrophils/100 WBC (Bld) 83.2 % High 47-70 [facility] Comment on above: Performed By: #### L 500.4050, L500.4100, L100.0100, L501.9520 ####[facility] [address] [place], [address] Nucleated RBC (Bld) [#/Vol] 0 10*3/uL Normal 0-5 [facility] Comment on above: Performed By: #### L 500.4050, L500.4100, L100.0100, L501.9520 ####[facility] [address] [place], [address] Platelet mean volume (Bld) [Entitic vol] 10.9 fL Normal 6.2-12.0 [facility] Comment on above: Performed By: #### L 500.4050, L500.4100, L100.0100, L501.9520 ####[facility] [address] [place], [address] Platelets (Bld) [#/Vol] 276 10*3/uL Normal 150-450 [facility] Comment on above: Performed By: #### L 500.4050, L500.4100, L100.0100, L501.9520 ####[facility] [address] [place], [address] RBC (Bld) [#/Vol] 3.75 10*6/uL Low 4.2-5.[address] [facility] Comment on above: Performed By: #### L 500.4050, L500.4100, L100.0100, L501.9520 ####[facility] [address] [place], [address] RDW SD 52.5 fl High 35.1-43.9 [facility] Comment on above: Performed By: #### L 500.4050, L500.4100, L100.0100, L501.9520 ####[facility] [address] [place], [address] WBC (Bld) [#/Vol] 8.5 10*3/uL Normal 4.4-11.0 [facility] Comment on above: Performed By: #### L 500.4050, L500.4100, L100.0100, L501.9520 ####[facility] [address] [place], [address] Calculated very low density lipoprotein (VLDL) cholesterol measurementOrdered By: Virginia Henriquez on 04-24-2025 Calculated very low density lipoprotein (VLDL) cholesterol measurement 19 mg/dL 5-40 [facility] Comprehensive Metabolic Prof ilon 04-24-2025 Albumin [Mass/Vol] 3.3 g/dL Low 3.4-4.8 [facility] Comment on above: Order Comment: Comme nts: Fasting Lipid Profile Performed By: #### L 500.4050, L500.4100, L100.0100, L501.9520 ####[facility] [address] [place], [address] Albumin/Globulin [Mass ratio] 1.0 {ratio} Normal 0.9-2.4 [facility] Comment on above: Order Comment: Comme nts: Fasting Lipid Profile Performed By: #### L 500.4050, L500.4100, L100.0100, L501.9520 ####[facility] [address] [place], [address] ALK PHOS 112 U/L High 35-104 [facility] Comment on above: Order Comment: Comme nts: Fasting Lipid Profile Performed By: #### L 500.4050, L500.4100, L100.0100, L501.9520 ####[facility] [address] [place], [address] ALT [Catalytic activity/Vol] 30 U/L Normal <=34 [facility] Comment on above: Order Comment: Comme nts: Fasting Lipid Profile Performed By: #### L 500.4050, L500.4100, L100.0100, L501.9520 ####[facility] [address] [place], [address] AST [Catalytic activity/Vol] 21 U/L Normal <=31 [facility] Comment on above: Order Comment: Comme nts: Fasting Lipid Profile Performed By: #### L 500.4050, L500.4100, L100.0100, L501.9520 ####[facility] [address] [place], [address] Bilirubin [Mass/Vol] 0.44 mg/dL Normal 0.00-1.30 [facility] Comment on above: Order Comment: Commcamron nts: Fasting Lipid Profile Performed By: #### L 500.4050, L500.4100, L100.0100, L501.9520 ####[facility] [address] [place], [address] BUN/CRE 20.9 RATIO High 10-20 [facility] Comment on above: Order Comment: Commcamron nts: Fasting Lipid Profile Performed By: #### L 500.4050, L500.4100, L100.0100, L501.9520 ####[facility] [address] [place], [address] Calcium [Mass/Vol] 9.4 mg/dL Normal 7.6-11.0 [facility] Comment on above: Order Comment: Liz nts: Fasting Lipid Profile Performed By: #### L 500.4050, L500.4100, L100.0100, L501.9520 ####[facility] [address] [place], [address] Chloride [Moles/Vol] 100 mmol/L Normal 98-108 [facility] Comment on above: Order Comment: Commcamron nts: Fasting Lipid Profile Performed By: #### L 500.4050, L500.4100, L100.0100, L501.9520 ####[facility] [address] [place], [address] CO2 [Moles/Vol] 38.0 mmol/L High 21.0-32.0 [facility] Comment on above: Order Comment: Liz nts: Fasting Lipid Profile Performed By: #### L 500.4050, L500.4100, L100.0100, L501.9520 ####[facility] [address] [place], [address] Creatinine [Mass/Vol] 0.63 mg/dL Low 0.70-1.20 [facility] Comment on above: Order Comment: Comme nts: Fasting Lipid Profile Performed By: #### L 500.4050, L500.4100, L100.0100, L501.9520 ####[facility] [address] [place], [address] ECRCL 85.25 ml/min Normal 50-250 [facility] Comment on above: Order Comment: Comme nts: Fasting Lipid Profile Performed By: #### L 500.4050, L500.4100, L100.0100, L501.9520 ####[facility] [address] [place], [address] GAP 8 Normal 5-15 [facility] Comment on above: Order Comment: Commcamron nts: Fasting Lipid Profile Performed By: #### L 500.4050, L500.4100, L100.0100, L501.9520 ####[facility] [address] [place], [address] GFR/1.73 sq M.predicted among non-blacks MDRD (S/P/Bld) [Vol rate/Area] 97 mL/min/{1.73_m2} Normal >60 [facility] Comment on above: Order Comment: Commcamron nts: Fasting Lipid Profile Result Comment: mL/m in/1.73m2 CKD-EPI Creatinine Equation (2020) Performed By: #### L 500.4050, L500.4100, L100.0100, L501.9520 ####[facility] [address] [place], [address] Globulin (S) [Mass/Vol] 3.3 g/dL Normal 2.2-4.2 [facility] Comment on above: Order Comment: Comme nts: Fasting Lipid Profile Performed By: #### L 500.4050, L500.4100, L100.0100, L501.9520 ####[facility] [address] [place], [address] Glucose [Mass/Vol] 144 mg/dL High 70-99 [facility] Comment on above: Order Comment: Comme nts: Fasting Lipid Profile Performed By: #### L 500.4050, L500.4100, L100.0100, L501.9520 ####[facility] [address] [place], [address] Potassium [Moles/Vol] 4.6 mmol/L Normal 3.3-5.1 [facility] Comment on above: Order Comment: Commcamron nts: Fasting Lipid Profile Performed By: #### L 500.4050, L500.4100, L100.0100, L501.9520 ####[facility] [address] [place], [address] Sodium [Moles/Vol] 146 mmol/L High 133-145 [facility] Comment on above: Order Comment: Josee nts: Fasting Lipid Profile Performed By: #### L 500.4050, L500.4100, L100.0100, L501.9520 ####[facility] [address] [place], [address] T PROT 6.6 g/dL Normal 5.9-8.4 [facility] Comment on above: Order Comment: Comme nts: Fasting Lipid Profile Performed By: #### L 500.4050, L500.4100, L100.0100, L501.9520 ####[facility] [address] [place], [address] Urea nitrogen [Mass/Vol] 13 mg/dL Normal 4-19 [facility] Comment on above: Order Comment: Comme nts: Fasting Lipid Profile Performed By: #### L 500.4050, L500.4100, L100.0100, L501.9520 ####[facility] [address] [place], [address] L499.0043on 04-24-2025 Trop T High Sen < 6 Normal <=14 [facility] Comment on above: Performed By: #### L 499.0043 ####[facility] [address] [place], [address] LDL calc ser/plasOrdered By: Virginia Henriquez on 04-24-2025 Cholesterol in LDL [Mass/Vol] 81 mg/dL [facility] Comment on above: Ntqgvsnhob=731-972 m g/dL & Higher Ooxy=642 mg/dL or greater Laboratory - Chemistry and C hemistry - challengeOrdered By: Virginia Henriquez on 04-24-2025 AST [Catalytic activity/Vol] 21 U/L <32 [facility] Lipid Profileon 04-24-2025 CHOL:HDL 3.62 Normal [facility] Comment on above: Order Comment: Comme nts: Fasting Lipid Profile Performed By: #### L 500.4050, L500.4100, L100.0100, L501.9520 ####[facility] [address] [place], [address] Cholesterol [Mass/Vol] 138 mg/dL Normal <=200 [facility] Comment on above: Order Comment: Comme nts: Fasting Lipid Profile Result Comment: Chol esterol level, Desirable <200 mg/dL Borderline high cholesterol 200-239 mg/dL High cholesterol >=240 mg/dL Recommendations of the NCEP Adult Treatment Panel for the following risk-cutoff thresholds for the [place] population. Performed By: #### L 500.4050, L500.4100, L100.0100, L501.9520 ####[facility] [address] [place], [address] Cholesterol in HDL [Mass/Vol] 38 mg/dL Low [facility] Comment on above: Order Comment: Comme nts: Fasting Lipid Profile Result Comment: Monika onal Cholesterol Education Program (NCEP) guidelines: <40 mg/dL: Low HDL-cholesterol (major risk factor for CHD) >= 60 mg/dL: High HDL-cholesterol (negative risk factor for CHD) HDL-cholesterol is affected by a number of factors, e.g. smoking, exercise, hormones, sex and age. Performed By: #### L 500.4050, L500.4100, L100.0100, L501.9520 ####[facility] [address] [place], [address] Cholesterol in LDL [Mass/Vol] 81 mg/dL Normal [facility] Comment on above: Order Comment: Comme nts: Fasting Lipid Profile Result Comment: Bord onisxg=217-243 mg/dL Higher Edaw=578 mg/dL or greater Performed By: #### L 500.4050, L500.4100, L100.0100, L501.9520 ####[facility] [address] [place], [address] Cholesterol in VLDL [Mass/Vol] 19 mg/dL Normal 5-40 [facility] Comment on above: Order Comment: Comme nts: Fasting Lipid Profile Performed By: #### L 500.4050, L500.4100, L100.0100, L501.9520 ####[facility] [address] [place], [address] Triglyceride [Mass/Vol] 93 mg/dL Normal [facility] Comment on above: Order Comment: Comme nts: Fasting Lipid Profile Result Comment: The drugs N-Acetylcysteine and Metamizole may falsely depress this assay. Normal range: <150 mg/dL Borderline High: 150-199 mg/dL High: 200-499 mg/dL Very High: >500 mg/dL Performed By: #### L 500.4050, L500.4100, L100.0100, L501.9520 ####[facility] [address] [place], [address] RESPIRATORY PANEL MOLECULARo n 04-24-2025 RP PANEL ADENOVIRUS Not Detected INFLUENZA A Not Detected INFLUENZA A (SUBTYPE H1) Not Detected INFLUENZA A (SUBTYPE H3) Not Detected INFLUENZA B Not Detected HUMAN METAPHNEUMO Not Detected PARAINFLUENZA 1 Not Detected PARAINFLUENZA 2 Not Detected PARAINFLUENZA 3 Not Detected PARAINFLUENZA 4 Not Detected RHINOVIRUS Not Detected RSV A Not Detected RSV B Not Detected Normal [facility] Comment on above: Performed By: #### M 383.630 ####[facility] [address] [place], [address] Respiratory pathogens detect ion panel by molecular detection methodOrdered By: [facility] on 04-24-2025 Respiratory pathogens DNA and RNA panel RENETTA+probe (Resp) [facility] Screening total cholesterol/ high density lipoprotein (HDL) cholesterol ratioOrdered By: [facility] on 04-24-2025 Cholesterol.total/Cho lesterol in HDL [Mass ratio] 3.62 {ratio} [facility] Serum globulin measurementOr dered By: Virginia Martinez 04-24-2025 Globulin (S) [Mass/Vol] 3.3 g/dL 2.2-4.2 [facility] Serum or plasma alanine lindsey otransferase (ALT) measurementOrdered By: [facility] 04-24-2025 ALT [Catalytic activity/Vol] 30 U/L <35 [facility] Serum or plasma albumin tad urement (mass/volume)Ordered By: [facility] 04-24-2025 Albumin [Mass/Vol] 3.3 g/dL Low 3.4-4.8 [facility] Serum or plasma albumin/glob ulin mass ratioOrdered By: [facility] 04-24-2025 Albumin/Globulin [Mass ratio] 1.0 {ratio} 0.9-2.4 [facility] Serum or plasma alkaline zita sphatase measurementOrdered By: [facility] 04-24-2025 ALP [Catalytic activity/Vol] 112 U/L High 35-104 [facility] Serum or plasma cholesterol in HDL measurement (mass/volume)Ordered By: [facility] 04-24-2025 Cholesterol in HDL [Mass/Vol] 38 mg/dL Low >40 [facility] Comment on above: National Cholesterol Education Program (NCEP) guidelines:<40 mg/dL: Low HDL-cholesterol (major risk factor for CHD)>= 60 mg/dL: High HDL-cholesterol (negative risk factor for CHD)HDL-cholesterol is affected by a number of factors, e.g. smoking, exercise, hormones, sex and age. Serum or plasma cholesterol measurement (mass/volume)Ordered By: Virginia Henriquez on 04-24-2025 Cholesterol [Mass/Vol] 138 mg/dL <201 [facility] Comment on above: Cholesterol level, D esirable <200 mg/dLBorderline high cholesterol 200-239 mg/dLHigh cholesterol >=240 mg/dLRecommendations of the NCEP Adult Treatment Panel for the following risk-cutoff thresholds for the [place] population. TSH DL <= 0.005 mIU/L QnOrde red By: Virginia Henriquez on 04-24-2025 TSH Qn 1.970 uIU/mL 0.300-4.20 0 [facility] Thyroid Stim Hormone (TSH)on 04-24-2025 TSH 1.970 uIU/mL Normal 0.300-4.20 0 [facility] Comment on above: Order Comment: Comme nts: Fasting Lipid Profile Performed By: #### L 500.4050, L500.4100, L100.0100, L501.9520 ####[facility] [address] [place], [place], [address] Total proteinOrdered By: Greg Henriquez on 04-24-2025 Protein [Mass/Vol] 6.6 g/dL 5.9-8.4 [facility] Triglycerides measurementOrd ered By: Virginia Henriquez on 04-24-2025 Triglyceride [Mass/Vol] 93 mg/dL <199 [facility] Comment on above: The drugs N-Acetylcy steine and Metamizole may falsely depress this assay. Normal range: <150 mg/dLBorderline High: 150-199 mg/dLHigh: 200-499 mg/dLVery High: >500 mg/dL Absolute lymphocyte countOrd ered By: Cele Morgan on 04-23-2025 Lymphocytes Auto (Unsp spec) [#/Vol] 0.71 10*3/uL Low 0.83-4.51 [facility] Absolute neutrophil countOrd ered By: Cele Morgan on 04-23-2025 Neutrophils (Bld) [#/Vol] 7.6 10*3/uL 2.0-7.7 [facility] Anion gap in Serum or Plasma Ordered By: Cele Morgan on 04-23-2025 Anion gap [Moles/Vol] 10 mmol/L 5-15 [facility] Automated lymphocyte count a s percentage of total leukocytesOrdered By: Cele Morgan on 04-23-2025 Lymphocytes/100 WBC Auto (Unsp spec) 7.9 % Low 19-41 [facility] BUN/creatinine ratioOrdered By: Cele Morgan on 04-23-2025 Urea nitrogen/Creatinine [Mass ratio] 22.2 mg/mg High 10-20 [facility] Basic Metabolic Profile (BMP )on 04-23-2025 BUN/CRE 22.2 RATIO High 10-20 [facility] Comment on above: Performed By: #### L 500.4050, L500.4100, L100.0500, L501.9520 #### [facility] [address] [place], [address] Calcium [Mass/Vol] 9.6 mg/dL Normal 7.6-11.0 [facility] Comment on above: Performed By: #### L 500.4050, L500.4100, L100.0500, L501.9520 #### [facility] [address] [place], [address] Chloride [Moles/Vol] 96 mmol/L Low 98-108 [facility] Comment on above: Performed By: #### L 500.4050, L500.4100, L100.0500, L501.9520 #### [facility] [address] [place], [address] CO2 [Moles/Vol] 38.0 mmol/L High 21.0-32.0 [facility] Comment on above: Performed By: #### L 500.4050, L500.4100, L100.0500, L501.9520 #### [facility] [address] [place], [address] Creatinine [Mass/Vol] 0.65 mg/dL Low 0.70-1.20 [facility] Comment on above: Performed By: #### L 500.4050, L500.4100, L100.0500, L501.9520 #### [facility] [address] [place], [address] ECRCL 85.20 ml/min Normal 50-250 [facility] Comment on above: Performed By: #### L 500.4050, L500.4100, L100.0500, L501.9520 #### [facility] [address] [place], [address] GAP 10 Normal 5-15 [facility] Comment on above: Performed By: #### L 500.4050, L500.4100, L100.0500, L501.9520 #### [facility] [address] [place], [address] GFR/1.73 sq M.predicted among non-blacks MDRD (S/P/Bld) [Vol rate/Area] 97 mL/min/{1.73_m2} Normal >60 [facility] Comment on above: Result Comment: mL/m in/1.73m2 CKD-EPI Creatinine Equation (2020) Performed By: #### L 500.4050, L500.4100, L100.0500, L501.9520 #### [facility] [address] [place], [address] Glucose [Mass/Vol] 110 mg/dL High 70-99 [facility] Comment on above: Performed By: #### L 500.4050, L500.4100, L100.0500, L501.9520 #### [facility] [address] [place], [address] Potassium [Moles/Vol] 3.9 mmol/L Normal 3.3-5.1 [facility] Comment on above: Performed By: #### L 500.4050, L500.4100, L100.0500, L501.9520 #### [facility] [address] [place], [address] Sodium [Moles/Vol] 145 mmol/L Normal 133-145 [facility] Comment on above: Performed By: #### L 500.4050, L500.4100, L100.0500, L501.9520 #### [facility] [address] [place], [address] Urea nitrogen [Mass/Vol] 14 mg/dL Normal 4-19 [facility] Comment on above: Performed By: #### L 500.4050, L500.4100, L100.0500, L501.9520 #### [facility] [address] [place], [address] Basophil percentageOrdered B y: Cele Mcnultyerson on 04-23-2025 Basophils/100 WBC (Bld) 0.6 % 0-1 [facility] Bilirubin Test strip Ql (U)O rdered By: Cele Morgan on 04-23-2025 Bilirubin Ql (U) 1 mg/dL High Negative [facility] Comment on above: COLOR OF URINE MAY A FFECT DIPSTICK RESULTS. Brain/Head without Contrasto n 04-23-2025 Brain/Head without Contrast [facility] Imaging Services [address] [place] [address] Brain/Head without Contrast MR#: [id number] Acct: [id number] Name: LISA LUCERO Rep #: [id number] : 1955 F 69 From: Rustam Drummond MD PCP: Dr. Phuc Martines, DO Status: REG ER Study: Brain/Head without Contrast Date of Exam: 03/29 05/21 Exam# [id number] Ordering Dr: Clay Hager MD EXAM: CT Head Without Intravenous Contrast CLINICAL INDICATION: HEADACHE ON ELIQUIS TECHNIQUE: Axial computed tomography images of the head/brain without intravenous contrast. This CT exam was performed using one or more of the following dose reduction techniques: automated exposure control, adjustment of the mA and/or kV according to patient size, and/or use of iterative reconstruction technique. COMPARISON: No relevant prior studies available. FINDINGS: BRAIN AND EXTRA-AXIAL SPACES: The cerebral and cerebellar sulci are mildly prominent consistent with mild brain atrophy. No acute intracranial hemorrhage, midline shift or mass effect. If symptoms persist, further evaluation with MRI is recommended. Mild areas of decreased attenuation in the deep cerebral white matter are consistent with mild small vessel ischemic/degenerative changes. BONES/JOINTS: Unremarkable. No acute fracture. SOFT TISSUES: Unremarkable. SINUSES: Unremarkable as visualized. No acute sinusitis. MASTOID AIR CELLS: Unremarkable as visualized. No mastoid effusion. CT/Brain/Head without Contrast IMPRESSION: 1. No acute intracranial hemorrhage, midline shift or mass effect. If symptoms persist, further evaluation with MRI is recommended. 2. Mild small vessel ischemic/degenerative changes. Reading Location: [facility] CC: Dr. Clay Hager MD; Dr. Phuc Martines DO Piano Case Maker: Signed Normal [facility] CBC W/Diff, Automatedon 03-29 Absolute Lymph 0.71 X10 3/uL Low 0.83-4.51 [facility] Comment on above: Performed By: #### L 500.4050, L500.4100, L100.0500, L501.9520 #### [facility] [address] [place], [address] Absolute Neut 7.6 X10 3/uL Normal 2.0-7.7 [facility] Comment on above: Performed By: #### L 500.4050, L500.4100, L100.0500, L501.9520 #### [facility] [address] [place], [address] Basophils/100 WBC (Bld) 0.6 % Normal 0-1 [facility] Comment on above: Performed By: #### L 500.4050, L500.4100, L100.0500, L501.9520 #### [facility] [address] [place], [address] Eosinophils/100 WBC (Bld) 0.8 % Normal 0-5 [facility] Comment on above: Performed By: #### L 500.4050, L500.4100, L100.0500, L501.9520 #### [facility] [address] [place], [address] Erythrocyte distribution width (RBC) [Ratio] 14.2 % Normal 11.6-14.6 [facility] Comment on above: Performed By: #### L 500.4050, L500.4100, L100.0500, L501.9520 #### [facility] [address] [place], [address] Hematocrit (Bld) [Volume fraction] 40.2 % Normal 37-47 [facility] Comment on above: Performed By: #### L 500.4050, L500.4100, L100.0500, L501.9520 #### [facility] [address] [place], [address] Hemoglobin (Bld) [Mass/Vol] 12.7 g/dL Normal 12.0-15.0 [facility] Comment on above: Performed By: #### L 500.4050, L500.4100, L100.0500, L501.9520 #### [facility] [address] [place], [address] IG% 0.300 Normal 0.0-0.9 [facility] Comment on above: Result Comment: IG% - Immature Granulocytes (promyelocytes, myelocytes and metamyelocytes) > 1% indicates that a LEFT SHIFT is Present. Performed By: #### L 500.4050, L500.4100, L100.0500, L501.9520 #### [facility] [address] [place], [address] Lymphocytes/100 WBC (Bld) 7.9 % Low 19-41 [facility] Comment on above: Performed By: #### L 500.4050, L500.4100, L100.0500, L501.9520 #### [facility] [address] [place], [address] MCH (RBC) [Entitic mass] 31.2 pg Normal 27.0-32.0 [facility] Comment on above: Performed By: #### L 500.4050, L500.4100, L100.0500, L501.9520 #### [facility] [address] [place], [address] MCHC (RBC) [Mass/Vol] 31.6 g/dL Low 32-36 [facility] Comment on above: Performed By: #### L 500.4050, L500.4100, L100.0500, L501.9520 #### [facility] [address] [place], [address] MCV (RBC) [Entitic vol] 98.8 fL Normal 81-99 [facility] Comment on above: Performed By: #### L 500.4050, L500.4100, L100.0500, L501.9520 #### [facility] [address] [place], [address] Monocytes/100 WBC (Bld) 6.6 % Normal 0-10 [facility] Comment on above: Performed By: #### L 500.4050, L500.4100, L100.0500, L501.9520 #### [facility] [address] [place], [address] Neutrophils/100 WBC (Bld) 83.8 % High 47-70 [facility] Comment on above: Performed By: #### L 500.4050, L500.4100, L100.0500, L501.9520 #### [facility] [address] [place], [address] Nucleated RBC (Bld) [#/Vol] 0 10*3/uL Normal 0-5 [facility] Comment on above: Performed By: #### L 500.4050, L500.4100, L100.0500, L501.9520 #### [facility] [address] [place], [address] Platelet mean volume (Bld) [Entitic vol] 10.4 fL Normal 6.2-12.0 [facility] Comment on above: Performed By: #### L 500.4050, L500.4100, L100.0500, L501.9520 #### [facility] [address] [place], [address] Platelets (Bld) [#/Vol] 285 10*3/uL Normal 150-450 [facility] Comment on above: Performed By: #### L 500.4050, L500.4100, L100.0500, L501.9520 #### [facility] [address] [place], [address] RBC (Bld) [#/Vol] 4.07 10*6/uL Low 4.2-5.[address] [facility] Comment on above: Performed By: #### L 500.4050, L500.4100, L100.0500, L501.9520 #### [facility] [address] [place], [address] RDW SD 51.3 fl High 35.1-43.9 [facility] Comment on above: Performed By: #### L 500.4050, L500.4100, L100.0500, L501.9520 #### [facility] [address] [place], [address] WBC (Bld) [#/Vol] 9.0 10*3/uL Normal 4.4-11.0 [facility] Comment on above: Performed By: #### L 500.4050, L500.4100, L100.0500, L501.9520 #### [facility] [address] [place], [address] CNOVon 04-23-2025 [facility] LISA LUCERO ([id number]) 1955 F Date Time Provider Department 04/23/25 3:00 PM TERRIE CARSON During your visit today, we recorded the following information about you: Pulse Respiration Blood pressure Weight 129/minute 20/minute 122/62 116.2 kg Terrie Carson APRN.NEWSSTAND VENDOR 04/23/2025 4:30 PM Signed This is a 69 year old female who presents today with: Increased confusion Express care follow up Subjective Lisa Sahni Lilliamphan is a 69 year old female. Patient [...] week for further evaluation. and Recording using [employer] software for draft documentation of the visit was discussed with the patient/authorized human resources hr representative; all questions welcomed and answered. Patient/authorized human resources hr representative agreed to proceed HISTORY OF PRESENT ILLNESS: Linwood was in the hospital in January for new onset of atrial flutter. She was initiated on eliquis and metoprolol and now being seen by cardiology. She was referred to a [facility] cardio electro doc and is in the [...] disease) (HCC) 02/03/2010 Coronary artery disease No SD, CHF. No heart cath. Diverticulosis of colon [...] WHEN PFRMD 09/10/2018 Colonoscopy - due 2027 I (more content not included)... Normal [facility] Carbon dioxide, total [Moles /volume] in Central venous bloodOrdered By: Cele Morgan on 04-23-2025 CO2 [Moles/Vol] 38.0 mmol/L High 21.0-32.0 [facility] Chest PA and Lateralon 04-23 Chest PA and Lateral [facility] Imaging Services [address] [place] [address] Chest PA and Lateral MR#: [id number] Acct: [id number] Name: LISA LUCERO Rep #: [id number] : 1955 F 69 From: Rustam Drummond MD PCP: Dr. Phuc Martines, DO Status: REG ER Study: Chest PA and Lateral Date of Exam: 04/23/25 Exam# [id number] Ordering Dr: Cele Morgan EXAM: XR Chest, 2 Views CLINICAL INDICATION: SOB TECHNIQUE: Frontal and lateral views of the chest. COMPARISON: No relevant prior studies available. FINDINGS: LUNGS AND PLEURAL SPACES: See below. HEART: Cardiomegaly with mild congestion. MEDIASTINUM: Unremarkable. Normal mediastinal contour. BONES/JOINTS: Unremarkable. No acute fracture. RAD/Chest PA and Lateral IMPRESSION: Cardiomegaly with mild congestion. Reading Location: [facility] CC: Dr. Phuc Martines, ; LEAH Cooley Piano Case Maker: Signed Normal [facility] Chloride assayOrdered By: Celine Morgan on 04-23-2025 Chloride [Moles/Vol] 96 mmol/L Low 98-108 [facility] Emergency Department Summary on 04-23-2025 Emergency Department Summary [facility] Medical Records Department [address] [place] [address] Emergency Department Summary 04/23/25 MR#: [id number] Acct: [id number] Name: LISA LUCERO Rep #: [id number] : 1955 69 From: Cele LYNN PCP: Dr. Phuc Martines DO Status:ADM IN Location: [address] HPI History of Present Illness Chief Complaint: Palpitations Narrative Narrative: Patient presenting today after being seen in her PCPs office due to dyspnea. She has a history of A-fib/flutter on Eliquis, COPD on 3 to 6 L at baseline, and alcohol use. She reports that she has chronic dyspnea at baseline that has been progressively getting worse. She denies any recent illness or cough. She denies any history of blood clots and is compliant with her Eliquis. She had a fever of 102 ???F on Saturday. She was also experiencing some nasal congestion and went to urgent care, she was also concerned she could have had a UTI and was started on Macrobid. She did have a urine culture that came back negative. She saw her PCP today in the office and was tachycardic with a heart rate around 129 bpm, she was then encouraged to come in for evaluation. She denies chest pain, abdominal pain, nausea, and vomiting. [facility] Medical History Pulmonary nodule Atrial flutter Shortness of breath ROXY (obstructive sleep apnea) Leiomyoma of uterus Internal hemorrhoids with complication Hypertension Diverticulosis of colon Chronic hypoxemic respiratory failure Alcohol abuse Former smoker On home oxygen therapy Irregular heart beat Atrial fibrillation COPD (chronic obstructive pulmonary disease) Home Medications ???Medication ???Instructions ???Recorded ???Last Taken ???Type Oxygen, Home [Home Oxygen] 2 - 4 lpm QHS 11/13/17 02/18/25 Hi story albuterol sulfate 90 mcg/actuation 2 [...] PRN dry 0 02/19/25 Unknown History aerosol (White House Saline) nasal passages triamcinolone acetonide 0.5 % 1 applic topical BID PRN itching 0 02/19/25 Unknown History topical cream apixaban 5 mg tablet (Eliquis) 5 mg PO BID #60 tabs 02/23/25 Unkn own Rx furosemide 40 mg tablet 40 mg PO BID #60 tabs 02/23/25 Unk nown Rx metoprolol tartrate 50 mg tablet 50 mg PO BID #60 tabs 02/23/25 Unk nown Rx potassium chloride 20 mEq 20 meq PO BID #60 tabs 02/23/25 Un known Rx tablet,extended release(part/cryst) (Klor-Con M) ascorbic acid (vitamin C) 500 mg 500 mg PO DAILY PRN 03/30/25 Unkno wn History capsule cinnamon bark 500 mg capsule 500 mg PO QDAY 03/30/25 Unknown Hi story (Cinnamon) mecobalamin (vitamin B12) 1,000 1,000 mcg PO QDAY 03/30/25 Unknown History mcg chewable tablet Allergy/AdvReac Type Severity Reaction Status Date / Time ibuprofen (From Advil) Allergy Mild Hives Verified 04/23/25 16:17 Family History Father Cancer Mother COPD (chronic obstructive pulmonary disease) Alcoholism Grandmother Hypertension Thyroid disorder Surgical History History of surgery History of colonoscopy History of lumpectomy of right breast Hx of inguinal herniorrhaphy Social History Smoking Status: Former smoker alcohol intake: current substance use type: does not use caffeine: Yes ROS ROS ED Constitutional Constitutional ED: Reports fever(s); Denies chills Cardiovascular Cardiovascular: Denies chest pain Respiratory/Chest Respiratory/Chest: Reports dyspnea on exertion; Denies cough Gastrointestinal Gastrointestinal: Denies abdominal pain, nausea or vomiting Musculoskeletal Musculoskeletal: Denies arthralgias or myalgias Integumentary Denies rash Neurologic Neurologic: Denies weakness EXAM Physical Exam Const Vital Signs: 04/23/25 16:18 04/23/25 16:50 04/23/25 16:50 Temperature 99.3 F H Temperature Source Oral Pulse Rate 129 H 125 H Respiratory Rate 20 H 16 Respiratory Effort Blood Pressure 133/96 H (more content not included)... Normal [facility] Eosinophil percentageOrdered By: Cele Morgan on 04-23-2025 Eosinophils/100 WBC (Bld) 0.8 % 0-5 [facility] Erythrocyte distribution wid th ratioOrdered By: Cele Morgan on 04-23-2025 Erythrocyte distribution width (RBC) [Ratio] 14.2 % 11.6-14.6 [facility] Erythrocyte distribution wid th standard deviationOrdered By: Cele Morgan on 04-23-2025 Erythrocyte distribution width (RBC) [Ratio] 51.3 fl High 35.1-43.9 [facility] Glomerular filtration rate ( GFR) estimation/1.73 sq m using serum, plasma, or whole bOrdered By: Cele Morgan on 04-23-2025 GFR/1.73 sq M.predicted among non-blacks MDRD (S/P/Bld) [Vol rate/Area] 97 mL/min/{1.73_m2} >60 [facility] Comment on above: mL/min/1.73m2 CKD-EP I Creatinine Equation (2020) H AND P Exam - [facility] 04-23-2025 H&P Exam - Hospitalist [facility] Medical Records Department [address] [place] [address] H P Exam - Hospitalist 04/23/25 2149 MR#: [id number] Acct: [id number] Name: LISA LUCERO Rep #: [id number] : 1955 69 From: Virginia Henriquez MD PCP: Dr. 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, Morbid obesity, PAF/Flutter, HTN, HLD, COPD w/ Chronic Hypoxic Respiratory Failure (3L-6L NC, she notes primarily 3.5 to 4 L at rest and up to 6 L with activity, uses similarly 3.5 to 4 L at bedtime also), Former tobacco use, ROXY not on PAP therapy, EtOH abuse recently cut back who presents to [facility] ED on 04/23/2025 with history of increased dyspnea above her baseline with underlying history of chronic dyspnea worse with any exertion with no recent URI type illness or increased productive cough with onset of fever Saturday with mild nasal congestion at that time prompting urgent care evaluation with also concern for urinary tract infection started on Macrobid however the urine culture resulted negative with PCP reevaluation in the office on day of presentation with heart rate at that time noted to be 129 prompting ED evaluation to be cautious. She also notes that recently following 1 dose of Macrobid she did have onset of diffuse patchy erythematous rash without significant pruritus or raised noted to be blanching which she thought was a reaction specifically given timeline. Workup in the ED included T99.3, heart rate 129, BP 133/96, respiratory rate 20, 90% on nasal cannula 3.5 L with most heart rate going down in the ED to 89 however most recent repeat vitals with heart rate 126, BP 156/92, respiratory rate 24, 94% on 3.5 L nasal cannula, CBC with WC 9.0, hemoglobin 12.7, platelet 285 with lymphopenia, BMP with chloride 96, carbon oxide 38, BUN/creatinine 14/0.65, GFR 97, glucose 110, troponin initial less than 6 with repeat delta less than 6, urinalysis with specific gravity 1.015, protein 30, ketones 50, occult blood negative, nitrate negative, leukocyte esterase 25 with urine WBCs 10-25 however urine squamous epithelial cells also noted to be 5-10 with 2+ urine bacteria, chest x-ray with cardiomegaly with mild congestion, CT brain with no acute intracranial finding with mild small vessel ischemic/degenerative changes, EKG PAFlutter w/ RVR. In the ED patient administered diltiazem 25 mg IV bolus x 1 and placed on a diltiazem drip. COUNTS INCLUDE 234 BEDS AT THE [facility] Medical History (Updated 04/23/25 @ 22:[address] Virginia Henriquez MD) Pulmonary nodule Atrial flutter Shortness of breath ROXY (obstructive sleep apnea) Leiomyoma of uterus Internal hemorrhoids with complication Hypertension Diverticulosis of colon Chronic hypoxemic respiratory failure Alcohol abuse Former smoker On home oxygen therapy Irregular heart beat Atrial fibrillation COPD (chronic obstructive pulmonary disease) Home Medications ???Medication ???Instructions ???Recorded ???Last Taken ???Type Oxygen, Home [Home Oxygen] 2 - 4 lpm QHS 11/13/17 02/18/25 Hi story albuterol sulfate 90 mcg/actuation 2 inh inhalation Q6H PRN shortne ss 02/19/25 Unknown History breath activated powder inhaler of breath fluticasone fur. 200 mcg-umeclid 1 ea inhalation DAILY sob 02/19/25 02/19/25 History 62.5 mcg-vilant 25 mcg [...] PRN dry 0 02/19/25 Unknown History aerosol ([place] House Saline) nasal passages triamcinolone acetonide 0.5 % 1 applic topical BID PRN itching 0 02/19/25 Unknown History topical cream apixaban 5 mg tablet (Eliquis) 5 mg PO BID blood thinner #60 tabs 02/23/25 Unknown Rx furosemide 40 mg tablet 40 mg PO BID diuretic #60 tabs Unknown Rx metoprolol tartrate 50 mg tablet 50 mg PO BID blood pressure #60 Unknown Rx tabs potassium chloride 20 mEq 20 meq PO BID supplement #60 tabs 02/23/25 Unknown Rx tablet,extended release(part/cryst) (Klor-Con M) ascorbic acid (vitamin C) 500 mg 500 mg PO DAILY PRN 03/30/25 Unkno wn History capsule cinnamon bark 500 mg capsule 500 mg PO QDAY 03/30/25 Unknown Hi story (Cinnamon) mecobalamin (vitamin B12) 1,000 1,000 mcg PO QDAY 03/30/25 Unknown History mcg chewabl (more content not included)... Normal [facility] Hematocrit Auto (Bld) [Volum e fraction]Ordered By: Cele Morgan on 04-23-2025 Hematocrit (Bld) [Volume fraction] 40.2 % 37-47 [facility] Hemoglobin measurementOrdere d By: Cele Morgan on 04-23-2025 Hemoglobin (Bld) [Mass/Vol] 12.7 g/dL 12.0-15.0 [facility] Immature granulocytes/100 WB C Auto (Bld)Ordered By: Cele Morgan on 04-23-2025 Immature granulocytes/100 WBC (Bld) 0.300 % 0.0-0.9 [facility] Comment on above: IG% - Immature Granu locytes (promyelocytes, myelocytes and metamyelocytes) > 1% indicates that a LEFT SHIFT is Present. Ketones Test strip Ql (U)Ord ered By: Cele Morgan on 04-23-2025 Ketones Ql (U) 50 mg/dl High Negative [facility] L499.0042on 04-23-2025 Trop T High Sen < 6 Normal <=14 [facility] Comment on above: Performed By: #### L 500.4050, L500.4100, L100.0500, L501.9520 #### [facility] [address] [place], [address] L501.4021on 04-23-2025 Trop T High Sen < 6 Normal <=14 [facility] Comment on above: Performed By: #### L 500.4050, L500.4100, L100.0500, L501.9520 #### [facility] [address] [place], [address] L509.7001on 04-23-2025 Procalcitonin 0.14 ng/mL High <=0.10 [facility] Comment on above: Result Comment: Inte rpretation: <0.10-0.25 ng/mL: Antibiotic therapy discouraged. Bacterial infection unlikely. 0.25-0.50 ng/mL: Antibiotic therapy encouraged. Bacterial infection possible. >0.50 ng/mL: Antibiotic therapy strongly encouraged. Suggestive of presence of bacterial infection. PCT should always be interpreted in the clinical context of the patient. Therefore, clinicians should use the PCT results in conjunction with other laboratory findings and clinical signs of the patient. Performed By: #### L 500.4050, L500.4100, L100.0500, L501.9520 #### [facility] [address] [place], [address] MCV (mean corpuscular volume ) determinationOrdered By: Cele Morgan on 04-23-2025 MCV (RBC) [Entitic vol] 98.8 fL 81-99 [facility] Magnesiumon 04-23-2025 Magnesium [Mass/Vol] 1.8 mg/dL Normal 1.5-2.2 [facility] Comment on above: Order Comment: Comme nts: May add to ED labsComments: may add to ED labs Performed By: #### L 500.4050, L500.4100, L100.0500, L501.9520 #### [facility] [address] [place], [address] Magnesium measurement (mass/ volume)Ordered By: Virginia Henriquez on 04-23-2025 Magnesium (Unsp spec) [Mass/Vol] 1.8 mg/dL 1.5-2.2 [facility] Mean corpuscular hemoglobin (MCH) determinationOrdered By: Cele Morgan on 04-23-2025 MCH (RBC) [Entitic mass] 31.2 pg 27.0-32.0 [facility] Mean corpuscular hemoglobin concentration (MCHC) determinationOrdered By: Cele Morgan on 04-23-2025 MCHC (RBC) [Mass/Vol] 31.6 g/dL Low 32-36 [facility] Mean platelet volume determi nationOrdered By: Cele Morgan on 04-23-2025 Platelet mean volume (Bld) [Entitic vol] 10.4 fL 6.2-12.0 [facility] Microscopic analysis of urin e for red blood cells (RBC)Ordered By: Cele Morgan on 04-23-2025 Microscopic analysis of urine for red blood cells (RBC) 0 SEEN /hpf 0-5 [facility] Monocyte percentageOrdered B y: Cele Morgan on 04-23-2025 Monocytes/100 WBC (Bld) 6.6 % 0-10 [facility] Mucus LM Ql (Urine sed)Order ed By: Cele Morgan on 04-23-2025 Mucus Ql (Urine sed) 2+ /hpf [facility] Neutrophil percentageOrdered By: Cele Morgan on 04-23-2025 Neutrophils/100 WBC (Bld) 83.8 % High 47-70 [facility] [facility] Test strip Ql (U)Ord ered By: Cele Morgan on 04-23-2025 Nitrite Ql (U) Negative Negative [facility] Nucleated red blood cell per centageOrdered By: Cele Morgan on 04-23-2025 Nucleated RBC/100 WBC (Bld) [Ratio] 0 % 0-5 [facility] Phosphoruson 04-23-2025 Phosphate [Mass/Vol] 3.6 mg/dL Normal 2.7-4.5 [facility] Comment on above: Order Comment: Comme nts: May add to ED labsComments: may add to ED labs Performed By: #### L 500.4050, L500.4100, L100.0500, L501.9520 #### [facility] [address] [place], [address] Platelet countOrdered By: Celine Morgan on 04-23-2025 Platelets (Bld) [#/Vol] 285 10*3/uL 150-450 [facility] Potassium measurement (mass/ volume)Ordered By: Cele Morgan on 04-23-2025 Potassium (Unsp spec) [Mass/Vol] 3.9 mmol/L 3.3-5.1 [facility] Procalcitonin [Mass/volume] in Serum or Plasma by ImmunoassayOrdered By: Virginia Henriquez on 04-23-2025 Procalcitonin IA [Mass/Vol] 0.14 ng/mL High <0.11 [facility] Comment on above: Interpretation:<0.10 -0.25 ng/mL: Antibiotic therapy discouraged. Bacterial infection unlikely.0.25-0.50 ng/mL: Antibiotic therapy encouraged. Bacterial infection possible.>0.50 ng/mL: Antibiotic therapy strongly encouraged. Suggestive of presence of bacterial infection.PCT should always be interpreted in the clinical context of the patient. Therefore, clinicians should use the PCT results in conjunction with other laboratory findings and clinical signs of the patient. Protein Test strip Ql (U)Ord ered By: Cele Morgan on 04-23-2025 Protein Ql (U) 30 mg/dl High Negative [facility] RBC Auto (Bld) [#/Vol]Ordere d By: Cele Morgan on 04-23-2025 RBC (Bld) [#/Vol] 4.07 10*6/uL Low 4.2-5.[address] [facility] Serum creatinine measurement (mass/volume)Ordered By: Cele Morgan on 04-23-2025 Creatinine [Mass/Vol] 0.65 mg/dL Low 0.70-1.20 [facility] Serum glucose measurement (m ass/volume)Ordered By: Cele Morgan on 04-23-2025 Glucose [Mass/Vol] 110 mg/dL High 70-99 [facility] Serum or plasma calcium tad urement (mass/volume)Ordered By: Cele Morgan on 04-23-2025 Calcium [Mass/Vol] 9.6 mg/dL 7.6-11.0 [facility] Serum or plasma urea nitroge n measurement (mass/volume)Ordered By: Cele Morgan on 04-23-2025 Urea nitrogen [Mass/Vol] 14 mg/dL 4-19 [facility] Sodium levelOrdered By: Len Morgan on 04-23-2025 Sodium [Moles/Vol] 145 mmol/L 133-145 [facility] Squamous epithelial cells de tection in urine sediment by light microscopyOrdered By: Cele Morgan on 04-23-2025 Epithelial cells.squamous LM Ql (Urine sed) 5-10 SEEN /hpf 5-10 [facility] Troponin T.cardiac [Mass/vol ume] in Serum or Plasma by High sensitivity methodOrdered By: Virginia Henriquez on 04-23-2025 Troponin T.cardiac High sensitivity method [Mass/Vol] < 6 ng/L <14 [facility] Troponin T.cardiac [Mass/vol ume] in Serum or Plasma by High sensitivity methodOrdered By: Cele Morgan on 04-23-2025 Troponin T.cardiac High sensitivity method [Mass/Vol] < 6 ng/L <14 [facility] Troponin T.cardiac High sensitivity method [Mass/Vol] < 6 ng/L <14 [facility] Urinalysis, Completeon 04-23 BACTERIA 2+ /hpf Normal None Seen [facility] Comment on above: Order Comment: COLLE CTOR TO SPECIFY Performed By: #### L 500.4050, L500.4100, L100.0500, L501.9520 #### [facility] [address] [place], [address] EPI,SQUAMOUS 5-10 SEEN Normal 5-10 [facility] Comment on above: Order Comment: COLLE CTOR TO SPECIFY Performed By: #### L 500.4050, L500.4100, L100.0500, L501.9520 #### [facility] [address] [place], [address] Mucus Ql (Urine sed) 2+ /hpf Normal [facility] Comment on above: Order Comment: COLLE CTOR TO SPECIFY Performed By: #### L 500.4050, L500.4100, L100.0500, L501.9520 #### [facility] [address] [place], [address] WBC 10-25 SEEN Normal 0-5 [facility] Comment on above: Order Comment: COLLE CTOR TO SPECIFY Performed By: #### L 500.4050, L500.4100, L100.0500, L501.9520 #### [facility] [address] [place], [address] RBC 0 SEEN Normal 0-5 [facility] Comment on above: Order Comment: COLLE CTOR TO SPECIFY Performed By: #### L 500.4050, L500.4100, L100.0500, L501.9520 #### [facility] [address] [place], [address] Urine clarityOrdered By: Humza Morgan on 04-23-2025 Clarity (U) Clear Clear [facility] Urine color determinationOrd ered By: Cele Morgan on 04-23-2025 Color (U) Yellow Yellow [facility] Urine glucose detectionOrder ed By: Cele Morgan on 04-23-2025 Glucose Ql (U) Normal mg/dl Normal [facility] Urine leukocyte esterase det ection by dipstickOrdered By: Cele Morgan on 04-23-2025 Leukocyte esterase Test strip Ql (U) 25 /ul High Negative [facility] Urine pHOrdered By: Glenna Morgan on 04-23-2025 pH (U) 6.0 [pH] 5.0 - 8.0 [facility] Urine sediment bacteria coun t by microscopy (number/high power field)Ordered By: Cele Morgan on 04-23-2025 Bacteria LM.HPF (Urine sed) [#/Area] 2 /[HPF] None Seen [facility] Urine specific gravity measu rementOrdered By: Cele Morgan on 04-23-2025 Specific gravity (U) [Rel density] 1.015 1.002-1.03 0 [facility] Urine urobilinogen measureme ntOrdered By: Cele Morgan on 04-23-2025 Urobilinogen Ql (U) 1 mg/dl High Normal [facility] White blood cell (WBC) count Ordered By: Cele Morgan on 04-23-2025 WBC (Bld) [#/Vol] 9.0 10*3/uL 4.4-11.0 [facility] White blood cell countOrdere d By: Cele Morgan on 04-23-2025 White blood cell count 10-25 SEEN /hpf 0-5 [facility] Bacteria Ur Culton Bacteria identified Cx Nom (U) ORGANISM ID: 1 10,000 -<50,000 CFU/ml Mixed microbiota No further workup. Mixed microbiota can be due to???urine???contamination with skin bacteria at time of collection or presence of a long-term urinary catheter. If a new culture is needed, please consider re-education of the patient on proper midstream co llection technique or straight catheterization for???urine???collection. Normal [facility] Comment on above: Performed By: #### 6 30-4 ####[facility] [id number] [address] STATES OF [facility] CNOVon 04-20-2025 CNOV Office Visit (UCWSTR ) LISA LUCERO ([id number]) 1955 F Date Time Provider Department 04/20/25 9:45 AM VALORIEDEDEDAMON UCWSTR During your visit today, we recorded the following information about you: Temperature Pulse Respiration Blood pressure 98.4 degrees 94/minute 18/minute 132/80 Weight 117 kg Damon Eugene, JAKI.NEWSSTAND VENDOR 04/20/2025 10:23 AM Signed [facility] [...] week for further evaluation. and Recording using Cyber[employer] software for draft documentation of the visit was discussed with the patient/authorized human resources hr representative; all questions welcomed and answered. Patient/authorized human resources hr representative agreed to proceed MDM Procedures Brandan [...] 10 capsuleRfl: 0 UA DIP, URINE (POC) [[id number]] Order #: [id number]. #:[id number] AB nystatin (MYCOSTATIN) creamApply to affected area two times a day for 14 days.Disp: 30 gRfl: 0 BACTERIAL CULTURE, URINE [SQURCUL] Order #: [id number]. #:[id number] Prescriptions as of 04/20/2025 - nitrofurantoin monohydrate [...] as ne (more content not included)... Normal [facility] UA DIP, URINE (POC)on 2024 BILIRUBIN UA (POCT) Small Abnormal Negative [facility] CLARITY UA (POCT) Turbid [facility] COLOR UA (POCT) Dark yellow [facility] GLUCOSE UA (POCT) Negative Negative mg/dL [facility] Hemoglobin Ql (U) Moderate Abnormal Negative [facility] Interpretation and review of laboratory results Abnormal [facility] KETONE UA (POCT) Trace Negative mg/dL [facility] LEUKOCYTES UA (POCT) Negative Negative [facility] NITRITE UA (POCT) Negative Negative [facility] PH UA (POCT) 6 4.5 - 8.0 [facility] Protein Ql (U) 30 mg/dL Abnormal Negative [facility] SPECIFIC GRAVITY UA (POCT) 1.015 1.005 - 1.030 [facility] UROBILINOGEN UA (POCT) 2 Abnormal Normal E.U./dL [facility] Location:[address], [place], [place], [address] [place] [address] POINT OF CARE [facility] CNOVon 03-31-2025 CNOV Office Visit (FAMPWS ) LISA LUCERO ([id number]) 1955 F Date Time Provider Department 03/31/25 1:00 PM JANETTE DAMON During your visit today, we recorded the following information about you: Pulse Respiration Blood pressure Weight 91/minute 18/minute 124/82 119.1 kg Janette Damon APRN.NEWSSTAND VENDOR 03/31/2025 1:06 PM Signed 03/31/2025 Patient presents with: BP Check: Had appointment with cardiology yesterday; [facility] Dr. Elena Recording using CyberDefender software for draft documentation of the visit was discussed with the patient/authorized human resources hr representative; all questions welcomed and answered. Patient/authorized human resources hr representative agreed to proceed SUBJECTIVE: This is a 69 year old that is here today for Above Complaints.. Atrial Flutter: - Recent consultation with Dr. Elena, who referred her to Dr. Marcos Santos, an section gang, for potential ablation. - Dr. Elena indicated [...] disease) (HCC) 02/03/2010 Coronary artery disease No SD, CHF. No heart cath. Diverticulosis of colon [...] hours as needed for wheezing/shortness of breath. rlxxukudzzj-mjtlnurmn-rdbelnz r (TRELEGY ELLIPTA) 200-62.5-25 mcg inhalation powder [...] Discussion Nev (more content not included)... Normal [facility] Cardiology Visit Reporton Cardiology Visit Report [facility] [address] [place] [address]. [address] [place] [address] OFFICE VISIT Date of Service: 03/30/25 MR#: [id number] Acct: [id number] Name: LISA LUCERO Rep #: [id number] : 1955 Provider: Dr. Bryan osei MD Age/Sex: 69/F Location: [facility] Status: Signed HPI HPI History of Present Illness Details: Patient comes today as a new patient visit. She is a pleasant 69-year-old white female who here for new onset atrial flutter. Patient was evaluated emergency department at [facility] February 19, 2025. She had been [...] to 50%. 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 Normal [facility] CNOVon 03-10-2025 CNOV Office Visit (PULMWS ) LISA LUCERO ([id number]) 1955 F Date Time Provider Department 03/10/25 1:00 PM LISA GOODMAN PULMWS During your visit today, we recorded the following information about you: Lisa Goodman APRN.NEWSSTAND VENDOR 03/10/2025 1:47 PM Signed Pulmonary Medicine Patients name: Lisa Palumbo PCP: Phuc Martines DO CC: concern for ROXY HPI: Lisa Lucero is a 69 year old female former 45-thex-huun smoker, quitting in 2008 with PMH significant [...] that time. She was just hospitalized at [facility] 02/19 - 02/23 for SOB/leg swelling in [...] failure (HCC) COPD (chronic obstructive pulmonary disease) ([facility]) 02/03/2010 Coronary artery disease No SD, CHF. No heart cath. Diverticulosis of colon [...] ELLIPTA 200-62.5-25 mcg inhalation powder Generic drug: zqsevhwoqsc-xqqrbmklu-kyzowxi r Inhale 1 Puff as instructed once [...] 3 LungR (more content not included)... Normal [facility] Basic Metabolic Profile (BMP )on 03-02-2025 BUN Normal 4-19 [facility] Comment on above: Result Comment: Canc elled via OM: Order cancelled - Patient discharged Performed By: #### L 500.2500, L100.0100 ####[facility] [address] [place], [address] BUN/CRE Normal 10-20 [facility] Comment on above: Result Comment: Canc elled via OM: Order cancelled - Patient discharged Performed By: #### L 500.2500, L100.0100 ####[facility] [address] [place], [address] Calcium Normal 7.6-11.0 [facility] Comment on above: Result Comment: Canc elled via OM: Order cancelled - Patient discharged Performed By: #### L 500.2500, L100.0100 ####[facility] [address] [place], [address] CL Normal 98-108 [facility] Comment on above: Result Comment: Canc elled via OM: Order cancelled - Patient discharged Performed By: #### L 500.2500, L100.0100 ####[facility] [address] [place], [address] CO2 Normal 21.0-32.0 [facility] Comment on above: Result Comment: Canc elled via OM: Order cancelled - Patient discharged Performed By: #### L 500.2500, L100.0100 ####[facility] [address] [place], [address] CREAT,SERUM Normal 0.70-1.20 [facility] Comment on above: Result Comment: Canc elled via OM: Order cancelled - Patient discharged Performed By: #### L 500.2500, L100.0100 ####[facility] [address], [address] eGFR Normal >60 [facility] Comment on above: Result Comment: Canc elled via OM: Order cancelled - Patient discharged Performed By: #### L 500.2500, L100.0100 ####[facility] [address] [place], [address] GAP Normal 5-15 [facility] Comment on above: Result Comment: Canc elled via OM: Order cancelled - Patient discharged Performed By: #### L 500.2500, L100.0100 ####[facility] [address] [place], [address] GLU Normal 70-99 [facility] Comment on above: Result Comment: Canc elled via OM: Order cancelled - Patient discharged Performed By: #### L 500.2500, L100.0100 ####[facility] [address] [place], [address] Potassium Normal 3.3-5.1 [facility] Comment on above: Result Comment: Canc elled via OM: Order cancelled - Patient discharged Performed By: #### L 500.2500, L100.0100 ####[facility] [address] [place], [address] Basic Metabolic Profile (BMP) Normal 133-145 [facility] Comment on above: Result Comment: Canc elled via OM: Order cancelled - Patient discharged Performed By: #### L 500.2500, L100.0100 ####[facility] [address] [place], [address] CBC W/Diff, Automatedon 05-0 -2024 Absolute Neut Normal 2.0-7.7 [facility] Comment on above: Result Comment: Canc elled via OM: Order cancelled - Patient discharged Performed By: #### L 500.2500, L100.0100 ####[facility] [address] [place], [address] HCT Normal 37-47 [facility] Comment on above: Result Comment: Canc elled via OM: Order cancelled - Patient discharged Performed By: #### L 500.2500, L100.0100 ####[facility] [address] [place], [address] HGB Normal 12.0-15.0 [facility] Comment on above: Result Comment: Canc elled via OM: Order cancelled - Patient discharged Performed By: #### L 500.2500, L100.0100 ####[facility] [address] [place], [address] MCH Normal 27.0-32.0 [facility] Comment on above: Result Comment: Canc elled via OM: Order cancelled - Patient discharged Performed By: #### L 500.2500, L100.0100 ####[facility] [address] [place], [address] MCHC Normal 32-36 [facility] Comment on above: Result Comment: Canc elled via OM: Order cancelled - Patient discharged Performed By: #### L 500.2500, L100.0100 ####[facility] [address] [place], [address] MCV Normal 81-99 [facility] Comment on above: Result Comment: Canc elled via OM: Order cancelled - Patient discharged Performed By: #### L 500.2500, L100.0100 ####[facility] [address] [place], [address] NEUT% Normal 47-70 [facility] Comment on above: Result Comment: Canc elled via OM: Order cancelled - Patient discharged Performed By: #### L 500.2500, L100.0100 ####[facility] [address] [place], [address] PLT Normal 150-450 [facility] Comment on above: Result Comment: Canc elled via OM: Order cancelled - Patient discharged Performed By: #### L 500.2500, L100.0100 ####[facility] [address] [place], [address] RBC Normal 4.2-5.4 [facility] Comment on above: Result Comment: Canc elled via OM: Order cancelled - Patient discharged Performed By: #### L 500.2500, L100.0100 ####[facility] [address] [place], [address] RDW CV Normal 11.6-14.6 [facility] Comment on above: Result Comment: Canc elled via OM: Order cancelled - Patient discharged Performed By: #### L 500.2500, L100.0100 ####[facility] [address] [place], [address] RDW SD Normal 35.1-43.9 [facility] Comment on above: Result Comment: Canc elled via OM: Order cancelled - Patient discharged Performed By: #### L 500.2500, L100.0100 ####[facility] [address] [place], [address] WBC Normal 4.4-11.0 [facility] Comment on above: Result Comment: Canc elled via OM: Order cancelled - Patient discharged Performed By: #### L 500.2500, L100.0100 ####[facility] [address] [place], [address] Basic Metabolic Profile (BMP )on 03-01-2025 BUN Normal 4-19 [facility] Comment on above: Result Comment: Canc elled via OM: Order cancelled - Patient discharged Performed By: #### L 100.0100, L500.2500 ####[facility] [address] [place], [address] BUN/CRE Normal 10-20 [facility] Comment on above: Result Comment: Canc elled via OM: Order cancelled - Patient discharged Performed By: #### L 100.0100, L500.2500 ####[facility] [address] [place], [address] Calcium Normal 7.6-11.0 [facility] Comment on above: Result Comment: Canc elled via OM: Order cancelled - Patient discharged Performed By: #### L 100.0100, L500.2500 ####[facility] [address] [place], [address] CL Normal 98-108 [facility] Comment on above: Result Comment: Canc elled via OM: Order cancelled - Patient discharged Performed By: #### L 100.0100, L500.2500 ####[facility] [address] [place], [address] CO2 Normal 21.0-32.0 [facility] Comment on above: Result Comment: Canc elled via OM: Order cancelled - Patient discharged Performed By: #### L 100.0100, L500.2500 ####[facility] [address] [place], [address] CREAT,SERUM Normal 0.70-1.20 [facility] Comment on above: Result Comment: Canc elled via OM: Order cancelled - Patient discharged Performed By: #### L 100.0100, L500.2500 ####[facility] [address] [place], [address] eGFR Normal >60 [facility] Comment on above: Result Comment: Canc elled via OM: Order cancelled - Patient discharged Performed By: #### L 100.0100, L500.2500 ####[facility] [address] [place], [address] GAP Normal 5-15 [facility] Comment on above: Result Comment: Canc elled via OM: Order cancelled - Patient discharged Performed By: #### L 100.0100, L500.2500 ####[facility] [address] [place], [address] GLU Normal 70-99 [facility] Comment on above: Result Comment: Canc elled via OM: Order cancelled - Patient discharged Performed By: #### L 100.0100, L500.2500 ####[facility] [address] [place], [address] Potassium Normal 3.3-5.1 [facility] Comment on above: Result Comment: Canc elled via OM: Order cancelled - Patient discharged Performed By: #### L 100.0100, L500.2500 ####[facility] [address] [place], [address] Basic Metabolic Profile (BMP) Normal 133-145 [facility] Comment on above: Result Comment: Canc elled via OM: Order cancelled - Patient discharged Performed By: #### L 100.0100, L500.2500 ####[facility] [address] [place], [address] CBC W/Diff, Automatedon 05-0 -2024 Absolute Neut Normal 2.0-7.7 [facility] Comment on above: Result Comment: Canc elled via OM: Order cancelled - Patient discharged Performed By: #### L 100.0100, L500.2500 ####[facility] [address] [place], [address] HCT Normal 37-47 [facility] Comment on above: Result Comment: Canc elled via OM: Order cancelled - Patient discharged Performed By: #### L 100.0100, L500.2500 ####[facility] [address] [place], [address] HGB Normal 12.0-15.0 [facility] Comment on above: Result Comment: Canc elled via OM: Order cancelled - Patient discharged Performed By: #### L 100.0100, L500.2500 ####[facility] [address] [place], [address] MCH Normal 27.0-32.0 [facility] Comment on above: Result Comment: Canc elled via OM: Order cancelled - Patient discharged Performed By: #### L 100.0100, L500.2500 ####[facility] [address] [place], [address] MCHC Normal 32-36 [facility] Comment on above: Result Comment: Canc elled via OM: Order cancelled - Patient discharged Performed By: #### L 100.0100, L500.2500 ####[facility] [address] [place], [address] MCV Normal 81-99 [facility] Comment on above: Result Comment: Canc elled via OM: Order cancelled - Patient discharged Performed By: #### L 100.0100, L500.2500 ####[facility] [address] [place], [address] NEUT% Normal 47-70 [facility] Comment on above: Result Comment: Canc elled via OM: Order cancelled - Patient discharged Performed By: #### L 100.0100, L500.2500 ####[facility] [address] [place], [address] PLT Normal 150-450 [facility] Comment on above: Result Comment: Canc elled via OM: Order cancelled - Patient discharged Performed By: #### L 100.0100, L500.2500 ####[facility] [address] [place], [address] RBC Normal 4.2-5.4 [facility] Comment on above: Result Comment: Canc elled via OM: Order cancelled - Patient discharged Performed By: #### L 100.0100, L500.2500 ####[facility] [address] [place], [address] RDW CV Normal 11.6-14.6 [facility] Comment on above: Result Comment: Canc elled via OM: Order cancelled - Patient discharged Performed By: #### L 100.0100, L500.2500 ####[facility] [address] [place], [address] RDW SD Normal 35.1-43.9 [facility] Comment on above: Result Comment: Canc elled via OM: Order cancelled - Patient discharged Performed By: #### L 100.0100, L500.2500 ####[facility] [address] [place], [address] WBC Normal 4.4-11.0 [facility] Comment on above: Result Comment: Canc elled via OM: Order cancelled - Patient discharged Performed By: #### L 100.0100, L500.2500 ####[facility] [address] [place], [address] CNOVon 03-01-2025 [facility] MICHELLELISA ([id number]) 1955 F Date Time Provider Department 03/01/25 12:20 PM JANETTE DAMON During your visit today, we recorded the following information about you: Pulse Respiration Blood pressure Weight 76/minute 18/minute 116/70 118.9 kg Janette Damon APRN.NEWSSTAND VENDOR 03/01/2025 2:15 PM Signed 02/26/2025 Patient presents with: Hospital F/U: [facility] COPD SUBJECTIVE: This is a 69 year old that is here today for Above Complaints. HOSPITAL/ER FOLLOW UP: Reason for visit: SOB, and leg swelling Which facility: [facility] Date of visit: 02/19/2025-02/23/2025 Diagnosis: COPD, atrial [...] as yet. Was wanting to stay within [facility] system. Denies dyspnea, orthopnea wheezing, chest pain, palpitations or leg swelling. Follows with [facility] floorworker lasting. Last appointment on 12/25/2024. Uses 3/4L/NC at rest and 6 L/NC with exertion. She feels her breathing as at her baseline. ER records reviewed PAST MEDICAL HISTORY Diagnosis Date Chronic hypoxemic respiratory failure (HCC) COPD (chronic obstructive pulmonary disease) (HCC) 02/03/2010 Coronary artery disease No SD, CHF. No heart cath. Diverticulosis of colon [...] hours as needed for wheezing/shortness of breath. runaazulgay-vbztguzeu-rmwudhu r (TRELEGY ELLIPTA) 200-62.5-25 mcg inhalation powder [...] skin Bone Density Screening Never done Covid-19 Vaccine(2023- season) due on 06/28/2024 Advance Directive Discussion Never done Depression Screening due on 03/13/2025 Anxiety Screening due on 03/13/2025 DTaP,Tdap,Td Vaccine(3 - Td or Tdap) due on 11/09/2025 M (more content not included)... Normal [facility] Basic Metabolic Profile (BMP )on 02-28-2025 BUN Normal - [facility] Comment on above: Result Comment: Canc elled via OM: Order cancelled - Patient discharged Performed By: #### L 500.2500, L100.0100 ####[facility] [address] [place], [address] BUN/CRE Normal 10-20 [facility] Comment on above: Result Comment: Canc elled via OM: Order cancelled - Patient discharged Performed By: #### L 500.2500, L100.0100 ####[facility] [address] [place], [address] Calcium Normal 7.6-11.0 [facility] Comment on above: Result Comment: Canc elled via OM: Order cancelled - Patient discharged Performed By: #### L 500.2500, L100.0100 ####[facility] [address] [place], [address] CL Normal 98-108 [facility] Comment on above: Result Comment: Canc elled via OM: Order cancelled - Patient discharged Performed By: #### L 500.2500, L100.0100 ####[facility] [address] [place], [address] CO2 Normal 21.0-32.0 [facility] Comment on above: Result Comment: Canc elled via OM: Order cancelled - Patient discharged Performed By: #### L 500.2500, L100.0100 ####[facility] [address] [place], [address] CREAT,SERUM Normal 0.70-1.20 [facility] Comment on above: Result Comment: Canc elled via OM: Order cancelled - Patient discharged Performed By: #### L 500.2500, L100.0100 ####[facility] [address] [place], [address] eGFR Normal >60 [facility] Comment on above: Result Comment: Canc elled via OM: Order cancelled - Patient discharged Performed By: #### L 500.2500, L100.0100 ####[facility] [address] [place], [address] GAP Normal 5-15 [facility] Comment on above: Result Comment: Canc elled via OM: Order cancelled - Patient discharged Performed By: #### L 500.2500, L100.0100 ####[facility] [address] [place], [address] GLU Normal 70-99 [facility] Comment on above: Result Comment: Canc elled via OM: Order cancelled - Patient discharged Performed By: #### L 500.2500, L100.0100 ####[facility] [address] [place], [address] Potassium Normal 3.3-5.1 [facility] Comment on above: Result Comment: Canc elled via OM: Order cancelled - Patient discharged Performed By: #### L 500.2500, L100.0100 ####[facility] [address] [place], [address] Basic Metabolic Profile (BMP) Normal 133-145 [facility] Comment on above: Result Comment: Canc elled via OM: Order cancelled - Patient discharged Performed By: #### L 500.2500, L100.0100 ####[facility] [address] [place], [address] CBC W/Diff, Automatedon 05-0 -2024 Absolute Neut Normal 2.0-7.7 [facility] Comment on above: Result Comment: Canc elled via OM: Order cancelled - Patient discharged Performed By: #### L 500.2500, L100.0100 ####[facility] [address] [place], [address] HCT Normal 37-47 [facility] Comment on above: Result Comment: Canc elled via OM: Order cancelled - Patient discharged Performed By: #### L 500.2500, L100.0100 ####[facility] [address] [place], [address] HGB Normal 12.0-15.0 [facility] Comment on above: Result Comment: Canc elled via OM: Order cancelled - Patient discharged Performed By: #### L 500.2500, L100.0100 ####[facility] [address] [place], [address] MCH Normal 27.0-32.0 [facility] Comment on above: Result Comment: Canc elled via OM: Order cancelled - Patient discharged Performed By: #### L 500.2500, L100.0100 ####[facility] [address] [place], [address] MCHC Normal 32-36 [facility] Comment on above: Result Comment: Canc elled via OM: Order cancelled - Patient discharged Performed By: #### L 500.2500, L100.0100 ####[facility] [address] [place], [address] MCV Normal 81-99 [facility] Comment on above: Result Comment: Canc elled via OM: Order cancelled - Patient discharged Performed By: #### L 500.2500, L100.0100 ####[facility] [address] [place], [address] NEUT% Normal 47-70 [facility] Comment on above: Result Comment: Canc elled via OM: Order cancelled - Patient discharged Performed By: #### L 500.2500, L100.0100 ####[facility] [address] [place], [address] PLT Normal 150-450 [facility] Comment on above: Result Comment: Canc elled via OM: Order cancelled - Patient discharged Performed By: #### L 500.2500, L100.0100 ####[facility] [address] [place], [address] RBC Normal 4.2-5.4 [facility] Comment on above: Result Comment: Canc elled via OM: Order cancelled - Patient discharged Performed By: #### L 500.2500, L100.0100 ####[facility] [address] [place], [address] RDW CV Normal 11.6-14.6 [facility] Comment on above: Result Comment: Canc elled via OM: Order cancelled - Patient discharged Performed By: #### L 500.2500, L100.0100 ####[facility] [address] [place], [address] RDW SD Normal 35.1-43.9 [facility] Comment on above: Result Comment: Canc elled via OM: Order cancelled - Patient discharged Performed By: #### L 500.2500, L100.0100 ####[facility] [address] [place], [address] WBC Normal 4.4-11.0 [facility] Comment on above: Result Comment: Canc elled via OM: Order cancelled - Patient discharged Performed By: #### L 500.2500, L100.0100 ####[facility] [address] [place], [address] Basic Metabolic Profile (BMP )on 02-27-2025 BUN Normal 4-19 [facility] Comment on above: Result Comment: Canc elled via OM: Order cancelled - Patient discharged Performed By: #### L 500.4050, L500.4100, L100.0500, [id number] #### [facility] [address] [place], [address] BUN/CRE Normal 10-20 [facility] Comment on above: Result Comment: Canc elled via OM: Order cancelled - Patient discharged Performed By: #### L 500.4050, L500.4100, L100.0500, [id number] #### [facility] [address] [place], [address] Calcium Normal 7.6-11.0 [facility] Comment on above: Result Comment: Canc elled via OM: Order cancelled - Patient discharged Performed By: #### L 500.4050, L500.4100, L100.0500, [id number] #### [facility] [address] [place], [address] CL Normal 98-108 [facility] Comment on above: Result Comment: Canc elled via OM: Order cancelled - Patient discharged Performed By: #### L 500.4050, L500.4100, L100.0500, [id number] #### [facility] [address] [place], [address] CO2 Normal 21.0-32.0 [facility] Comment on above: Result Comment: Canc elled via OM: Order cancelled - Patient discharged Performed By: #### L 500.4050, L500.4100, L100.0500, [id number] #### [facility] [address] [place], [address] CREAT,SERUM Normal 0.70-1.20 [facility] Comment on above: Result Comment: Canc elled via OM: Order cancelled - Patient discharged Performed By: #### L 500.4050, L500.4100, L100.0500, [id number] #### [facility] [address] [place], [address] eGFR Normal >60 [facility] Comment on above: Result Comment: Canc elled via OM: Order cancelled - Patient discharged Performed By: #### L 500.4050, L500.4100, L100.0500, [id number] #### [facility] [address] [place], [address] GAP Normal 5-15 [facility] Comment on above: Result Comment: Canc elled via OM: Order cancelled - Patient discharged Performed By: #### L 500.4050, L500.4100, L100.0500, [id number] #### [facility] [address] [place], [address] GLU Normal 70-99 [facility] Comment on above: Result Comment: Canc elled via OM: Order cancelled - Patient discharged Performed By: #### L 500.4050, L500.4100, L100.0500, [id number] #### [facility] [address] [place], [address] Potassium Normal 3.3-5.1 [facility] Comment on above: Result Comment: Canc elled via OM: Order cancelled - Patient discharged Performed By: #### L 500.4050, L500.4100, L100.0500, [id number] #### [facility] [address] [place], [address] Basic Metabolic Profile (BMP) Normal 133-145 [facility] Comment on above: Result Comment: Canc elled via OM: Order cancelled - Patient discharged Performed By: #### L 500.4050, L500.4100, L100.0500, [id number] #### [facility] [address] [place], [address] CBC W/Diff, Automatedon 05-0 Absolute Neut Normal 2.0-7.7 [facility] Comment on above: Result Comment: Canc elled via OM: Order cancelled - Patient discharged Performed By: #### L 500.4050, L500.4100, L100.0500, [id number] #### [facility] [address] [place], [address] HCT Normal 37-47 [facility] Comment on above: Result Comment: Canc elled via OM: Order cancelled - Patient discharged Performed By: #### L 500.4050, L500.4100, L100.0500, [id number] #### [facility] [address] [place], [address] HGB Normal 12.0-15.0 [facility] Comment on above: Result Comment: Canc elled via OM: Order cancelled - Patient discharged Performed By: #### L 500.4050, L500.4100, L100.0500, [id number] #### [facility] [address] [place], [address] MCH Normal 27.0-32.0 [facility] Comment on above: Result Comment: Canc elled via OM: Order cancelled - Patient discharged Performed By: #### L 500.4050, L500.4100, L100.0500, [id number] #### [facility] [address] [place], [address] MCHC Normal 32-36 [facility] Comment on above: Result Comment: Canc elled via OM: Order cancelled - Patient discharged Performed By: #### L 500.4050, L500.4100, L100.0500, [id number] #### [facility] [address] [place], [address] MCV Normal 81-99 [facility] Comment on above: Result Comment: Canc elled via OM: Order cancelled - Patient discharged Performed By: #### L 500.4050, L500.4100, L100.0500, [id number] #### [facility] [address] [place], [address] NEUT% Normal 47-70 [facility] Comment on above: Result Comment: Canc elled via OM: Order cancelled - Patient discharged Performed By: #### L 500.4050, L500.4100, L100.0500, [id number] #### [facility] [address] [place], [address] PLT Normal 150-450 [facility] Comment on above: Result Comment: Canc elled via OM: Order cancelled - Patient discharged Performed By: #### L 500.4050, L500.4100, L100.0500, [id number] #### [facility] [address] [place], [address] RBC Normal 4.2-5.4 [facility] Comment on above: Result Comment: Canc elled via OM: Order cancelled - Patient discharged Performed By: #### L 500.4050, L500.4100, L100.0500, [id number] #### [facility] [address] [place], [address] RDW CV Normal 11.6-14.6 [facility] Comment on above: Result Comment: Canc elled via OM: Order cancelled - Patient discharged Performed By: #### L 500.4050, L500.4100, L100.0500, [id number] #### [facility] [address] [place], [address] RDW SD Normal 35.1-43.9 [facility] Comment on above: Result Comment: Canc elled via OM: Order cancelled - Patient discharged Performed By: #### L 500.4050, L500.4100, L100.0500, [id number] #### [facility] [address] [place], [address] WBC Normal 4.4-11.0 [facility] Comment on above: Result Comment: Canc elled via OM: Order cancelled - Patient discharged Performed By: #### L 500.4050, L500.4100, L100.0500, [id number] #### [facility] [address] [place], [address] Basic Metabolic Profile (BMP )on 02-26-2025 BUN Normal 4-19 [facility] Comment on above: Result Comment: Canc elled via OM: Order cancelled - Patient discharged Performed By: #### L 500.4050, L500.4100, L100.0500, [id number] #### [facility] [address] [place], [address] BUN/CRE Normal 10-20 [facility] Comment on above: Result Comment: Canc elled via OM: Order cancelled - Patient discharged Performed By: #### L 500.4050, L500.4100, L100.0500, [id number] #### [facility] [address] [place], [address] Calcium Normal 7.6-11.0 [facility] Comment on above: Result Comment: Canc elled via OM: Order cancelled - Patient discharged Performed By: #### L 500.4050, L500.4100, L100.0500, [id number] #### [facility] [address] [place], [address] CL Normal 98-108 [facility] Comment on above: Result Comment: Canc elled via OM: Order cancelled - Patient discharged Performed By: #### L 500.4050, L500.4100, L100.0500, [id number] #### [facility] [address] [place], [address] CO2 Normal 21.0-32.0 [facility] Comment on above: Result Comment: Canc elled via OM: Order cancelled - Patient discharged Performed By: #### L 500.4050, L500.4100, L100.0500, [id number] #### [facility] [address] [place], [address] CREAT,SERUM Normal 0.70-1.20 [facility] Comment on above: Result Comment: Canc elled via OM: Order cancelled - Patient discharged Performed By: #### L 500.4050, L500.4100, L100.0500, [id number] #### [facility] [address] [place], [address] eGFR Normal >60 [facility] Comment on above: Result Comment: Canc elled via OM: Order cancelled - Patient discharged Performed By: #### L 500.4050, L500.4100, L100.0500, [id number] #### [facility] [address] [place], [address] GAP Normal 5-15 [facility] Comment on above: Result Comment: Canc elled via OM: Order cancelled - Patient discharged Performed By: #### L 500.4050, L500.4100, L100.0500, [id number] #### [facility] [address] [place], [address] GLU Normal 70-99 [facility] Comment on above: Result Comment: Canc elled via OM: Order cancelled - Patient discharged Performed By: #### L 500.4050, L500.4100, L100.0500, [id number] #### [facility] [address] [place], [address] Potassium Normal 3.3-5.1 [facility] Comment on above: Result Comment: Canc elled via OM: Order cancelled - Patient discharged Performed By: #### L 500.4050, L500.4100, L100.0500, [id number] #### [facility] [address] [place], [address] Basic Metabolic Profile (BMP) Normal 133-145 [facility] Comment on above: Result Comment: Canc elled via OM: Order cancelled - Patient discharged Performed By: #### L 500.4050, L500.4100, L100.0500, [id number] #### [facility] [address] [place], [address] CBC W/Diff, Automatedon 05-0 2-2024 Absolute Neut Normal 2.0-7.7 [facility] Comment on above: Result Comment: Canc elled via OM: Order cancelled - Patient discharged Performed By: #### L 500.4050, L500.4100, L100.0500, [id number] #### [facility] [address] [place], [address] HCT Normal 37-47 [facility] Comment on above: Result Comment: Canc elled via OM: Order cancelled - Patient discharged Performed By: #### L 500.4050, L500.4100, L100.0500, [id number] #### [facility] [address] [place], [address] HGB Normal 12.0-15.0 [facility] Comment on above: Result Comment: Canc elled via OM: Order cancelled - Patient discharged Performed By: #### L 500.4050, L500.4100, L100.0500, [id number] #### [facility] [address] [place], [address] MCH Normal 27.0-32.0 [facility] Comment on above: Result Comment: Canc elled via OM: Order cancelled - Patient discharged Performed By: #### L 500.4050, L500.4100, L100.0500, [id number] #### [facility] [address], [address] MCHC Normal 32-36 [facility] Comment on above: Result Comment: Canc elled via OM: Order cancelled - Patient discharged Performed By: #### L 500.4050, L500.4100, L100.0500, [id number] #### [facility] [address] [place], [address] MCV Normal 81-99 [facility] Comment on above: Result Comment: Canc elled via OM: Order cancelled - Patient discharged Performed By: #### L 500.4050, L500.4100, L100.0500, [id number] #### [facility] [address] [place], [address] NEUT% Normal 47-70 [facility] Comment on above: Result Comment: Canc elled via OM: Order cancelled - Patient discharged Performed By: #### L 500.4050, L500.4100, L100.0500, [id number] #### [facility] [address] [place], [address] PLT Normal 150-450 [facility] Comment on above: Result Comment: Canc elled via OM: Order cancelled - Patient discharged Performed By: #### L 500.4050, L500.4100, L100.0500, [id number] #### [facility] [address] [place], [address] RBC Normal 4.2-5.4 [facility] Comment on above: Result Comment: Canc elled via OM: Order cancelled - Patient discharged Performed By: #### L 500.4050, L500.4100, L100.0500, [id number] #### [facility] [address] [place], [address] RDW CV Normal 11.6-14.6 [facility] Comment on above: Result Comment: Canc elled via OM: Order cancelled - Patient discharged Performed By: #### L 500.4050, L500.4100, L100.0500, [id number] #### [facility] [address] [place], [address] RDW SD Normal 35.1-43.9 [facility] Comment on above: Result Comment: Canc elled via OM: Order cancelled - Patient discharged Performed By: #### L 500.4050, L500.4100, L100.0500, [id number] #### [facility] [address] [place], [address] WBC Normal 4.4-11.0 [facility] Comment on above: Result Comment: Canc elled via OM: Order cancelled - Patient discharged Performed By: #### L 500.4050, L500.4100, L100.0500, [id number] #### [facility] [address] [place], [address] Basic Metabolic Profile (BMP )on 02-25-2025 BUN Normal 4-19 [facility] Comment on above: Result Comment: Canc elled via OM: Order cancelled - Patient discharged Performed By: #### L 500.4050, L500.4100, L100.0500, [id number] #### [facility] [address] [place], [address] BUN/CRE Normal 10-20 [facility] Comment on above: Result Comment: Canc elled via OM: Order cancelled - Patient discharged Performed By: #### L 500.4050, L500.4100, L100.0500, [id number] #### [facility] [address] [place], [address] Calcium Normal 7.6-11.0 [facility] Comment on above: Result Comment: Canc elled via OM: Order cancelled - Patient discharged Performed By: #### L 500.4050, L500.4100, L100.0500, [id number] #### [facility] [address] [place], [address] CL Normal 98-108 [facility] Comment on above: Result Comment: Canc elled via OM: Order cancelled - Patient discharged Performed By: #### L 500.4050, L500.4100, L100.0500, [id number] #### [facility] [address] [place], [address] CO2 Normal 21.0-32.0 [facility] Comment on above: Result Comment: Canc elled via OM: Order cancelled - Patient discharged Performed By: #### L 500.4050, L500.4100, L100.0500, [id number] #### [facility] [address] [place], [address] CREAT,SERUM Normal 0.70-1.20 [facility] Comment on above: Result Comment: Canc elled via OM: Order cancelled - Patient discharged Performed By: #### L 500.4050, L500.4100, L100.0500, [id number] #### [facility] [address] [place], [address] eGFR Normal >60 [facility] Comment on above: Result Comment: Canc elled via OM: Order cancelled - Patient discharged Performed By: #### L 500.4050, L500.4100, L100.0500, [id number] #### [facility] [address] [place], [address] GAP Normal 5-15 [facility] Comment on above: Result Comment: Canc elled via OM: Order cancelled - Patient discharged Performed By: #### L 500.4050, L500.4100, L100.0500, [id number] #### [facility] [address] [place], [address] GLU Normal 70-99 [facility] Comment on above: Result Comment: Canc elled via OM: Order cancelled - Patient discharged Performed By: #### L 500.4050, L500.4100, L100.0500, [id number] #### [facility] [address] [place], [address] Potassium Normal 3.3-5.1 [facility] Comment on above: Result Comment: Canc elled via OM: Order cancelled - Patient discharged Performed By: #### L 500.4050, L500.4100, L100.0500, [id number] #### [facility] [address] [place], [address] Basic Metabolic Profile (BMP) Normal 133-145 [facility] Comment on above: Result Comment: Canc elled via OM: Order cancelled - Patient discharged Performed By: #### L 500.4050, L500.4100, L100.0500, [id number] #### [facility] [address] [place], [place], [address] CBC W/Diff, Automatedon 05-0 -2024 Absolute Neut Normal 2.0-7.7 [facility] Comment on above: Result Comment: Canc elled via OM: Order cancelled - Patient discharged Performed By: #### L 300.3900, L100.0100, L500.4050, L300.4310, L503.6005, M200.1000 #### [facility] [address] [place], [address] HCT Normal 37-47 [facility] Comment on above: Result Comment: Canc elled via OM: Order cancelled - Patient discharged Performed By: #### L 300.3900, L100.0100, L500.4050, L300.4310, L503.6005, M200.1000 #### [facility] [address] [place], [address] HGB Normal 12.0-15.0 [facility] Comment on above: Result Comment: Canc elled via OM: Order cancelled - Patient discharged Performed By: #### L 300.3900, L100.0100, L500.4050, L300.4310, L503.6005, M200.1000 #### [facility] [address] [place], [address] MCH Normal 27.0-32.0 [facility] Comment on above: Result Comment: Canc elled via OM: Order cancelled - Patient discharged Performed By: #### L 300.3900, L100.0100, L500.4050, L300.4310, L503.6005, M200.1000 #### [facility] [address] [place], [address] MCHC Normal 32-36 [facility] Comment on above: Result Comment: Canc elled via OM: Order cancelled - Patient discharged Performed By: #### L 300.3900, L100.0100, L500.4050, L300.4310, L503.6005, M200.1000 #### [facility] [address] [place], [address] MCV Normal 81-99 [facility] Comment on above: Result Comment: Canc elled via OM: Order cancelled - Patient discharged Performed By: #### L 300.3900, L100.0100, L500.4050, L300.4310, L503.6005, M200.1000 #### [facility] [address] [place], [address] NEUT% Normal 47-70 [facility] Comment on above: Result Comment: Canc elled via OM: Order cancelled - Patient discharged Performed By: #### L 300.3900, L100.0100, L500.4050, L300.4310, L503.6005, M200.1000 #### [facility] [address] [place], [facility] PLT Normal 150-450 [facility] Comment on above: Result Comment: Canc elled via OM: Order cancelled - Patient discharged Performed By: #### L 300.3900, L100.0100, L500.4050, L300.4310, L503.6005, M200.1000 #### [facility] [address] [place], [address] RBC Normal 4.2-5.4 [facility] Comment on above: Result Comment: Canc elled via OM: Order cancelled - Patient discharged Performed By: #### L 300.3900, L100.0100, L500.4050, L300.4310, L503.6005, M200.1000 #### [facility] [address] [place], [address] RDW CV Normal 11.6-14.6 [facility] Comment on above: Result Comment: Canc elled via OM: Order cancelled - Patient discharged Performed By: #### L 300.3900, L100.0100, L500.4050, L300.4310, L503.6005, M200.1000 #### [facility] [address] [place], [address] RDW SD Normal 35.1-43.9 [facility] Comment on above: Result Comment: Canc elled via OM: Order cancelled - Patient discharged Performed By: #### L 300.3900, L100.0100, L500.4050, L300.4310, L503.6005, M200.1000 #### [facility] [address] [place], [address] WBC Normal 4.4-11.0 [facility] Comment on above: Result Comment: Canc elled via OM: Order cancelled - Patient discharged Performed By: #### L 300.3900, L100.0100, L500.4050, L300.4310, L503.6005, M200.1000 #### [facility] [address] [place], [address] Basic Metabolic Profile (BMP )on 02-24-2025 BUN Normal 4-19 [facility] Comment on above: Result Comment: Canc elled via OM: Order cancelled - Patient discharged Performed By: #### L 500.4050, L500.4100, L100.0500, L501.9520 #### [facility] [address] [place], [address] BUN/CRE Normal 10-20 [facility] Comment on above: Result Comment: Canc elled via OM: Order cancelled - Patient discharged Performed By: #### L 500.4050, L500.4100, L100.0500, L501.9520 #### [facility] [address] [place], [address] Calcium Normal 7.6-11.0 [facility] Comment on above: Result Comment: Canc elled via OM: Order cancelled - Patient discharged Performed By: #### L 500.4050, L500.4100, L100.0500, L501.9520 #### [facility] [address] [place], [address] CL Normal 98-108 [facility] Comment on above: Result Comment: Canc elled via OM: Order cancelled - Patient discharged Performed By: #### L 500.4050, L500.4100, L100.0500, L501.9520 #### [facility] [address] [place], [address] CO2 Normal 21.0-32.0 [facility] Comment on above: Result Comment: Canc elled via OM: Order cancelled - Patient discharged Performed By: #### L 500.4050, L500.4100, L100.0500, L501.9520 #### [facility] [address] [place], [address] CREAT,SERUM Normal 0.70-1.20 [facility] Comment on above: Result Comment: Canc elled via OM: Order cancelled - Patient discharged Performed By: #### L 500.4050, L500.4100, L100.0500, L501.9520 #### [facility] [address] [place], [address] eGFR Normal >60 [facility] Comment on above: Result Comment: Canc elled via OM: Order cancelled - Patient discharged Performed By: #### L 500.4050, L500.4100, L100.0500, L501.9520 #### [facility] [address] [place], [address] GAP Normal 5-15 [facility] Comment on above: Result Comment: Canc elled via OM: Order cancelled - Patient discharged Performed By: #### L 500.4050, L500.4100, L100.0500, L501.9520 #### [facility] [address] [place], [address] GLU Normal 70-99 [facility] Comment on above: Result Comment: Canc elled via OM: Order cancelled - Patient discharged Performed By: #### L 500.4050, L500.4100, L100.0500, L501.9520 #### [facility] [address] [place], [address] Potassium Normal 3.3-5.1 [facility] Comment on above: Result Comment: Canc elled via OM: Order cancelled - Patient discharged Performed By: #### L 500.4050, L500.4100, L100.0500, L501.9520 #### [facility] [address] [place], [address] Basic Metabolic Profile (BMP) Normal 133-145 [facility] Comment on above: Result Comment: Canc elled via OM: Order cancelled - Patient discharged Performed By: #### L 500.4050, L500.4100, L100.0500, L501.9520 #### [facility] [address] [place], [address] CBC W/Diff, Automatedon 04-3 0-2024 Absolute Neut Normal 2.0-7.7 [facility] Comment on above: Result Comment: Canc elled via OM: Order cancelled - Patient discharged Performed By: #### L 500.4050, L500.4100, L100.0500, L501.9520 #### [facility] [address] [place], [address] HCT Normal 37-47 [facility] Comment on above: Result Comment: Canc elled via OM: Order cancelled - Patient discharged Performed By: #### L 500.4050, L500.4100, L100.0500, L501.9520 #### [facility] [address] [place], [address] HGB Normal 12.0-15.0 [facility] Comment on above: Result Comment: Canc elled via OM: Order cancelled - Patient discharged Performed By: #### L 500.4050, L500.4100, L100.0500, L501.9520 #### [facility] [address] [place], [address] MCH Normal 27.0-32.0 [facility] Comment on above: Result Comment: Canc elled via OM: Order cancelled - Patient discharged Performed By: #### L 500.4050, L500.4100, L100.0500, L501.9520 #### [facility] [address] [place], [address] MCHC Normal 32-36 [facility] Comment on above: Result Comment: Canc elled via OM: Order cancelled - Patient discharged Performed By: #### L 500.4050, L500.4100, L100.0500, L501.9520 #### [facility] [address] [place], [address] MCV Normal 81-99 [facility] Comment on above: Result Comment: Canc elled via OM: Order cancelled - Patient discharged Performed By: #### L 500.4050, L500.4100, L100.0500, L501.9520 #### [facility] [address] [place], [address] NEUT% Normal 47-70 [facility] Comment on above: Result Comment: Canc elled via OM: Order cancelled - Patient discharged Performed By: #### L 500.4050, L500.4100, L100.0500, L501.9520 #### [facility] [address] [place], [address] PLT Normal 150-450 [facility] Comment on above: Result Comment: Canc elled via OM: Order cancelled - Patient discharged Performed By: #### L 500.4050, L500.4100, L100.0500, L501.9520 #### [facility] [address] [place], [address] RBC Normal 4.2-5.4 [facility] Comment on above: Result Comment: Canc elled via OM: Order cancelled - Patient discharged Performed By: #### L 500.4050, L500.4100, L100.0500, L501.9520 #### [facility] [address] [place], [address] RDW CV Normal 11.6-14.6 [facility] Comment on above: Result Comment: Canc elled via OM: Order cancelled - Patient discharged Performed By: #### L 500.4050, L500.4100, L100.0500, L501.9520 #### [facility] [address] [place], [address] RDW SD Normal 35.1-43.9 [facility] Comment on above: Result Comment: Canc elled via OM: Order cancelled - Patient discharged Performed By: #### L 500.4050, L500.4100, L100.0500, L501.9520 #### [facility] [address] [place], [address] WBC Normal 4.4-11.0 [facility] Comment on above: Result Comment: Canc elled via OM: Order cancelled - Patient discharged Performed By: #### L 500.4050, L500.4100, L100.0500, L501.9520 #### [facility] [address] [place], [address] Culture, Blood (WB)on 2024 CUB Blood cultures x2, f rom two different sites No growth in 5 days. Normal [facility] Comment on above: Performed By: #### L 300.3900, L100.0100, L500.4050, L300.4310, L503.6005, M200.1000 ####[facility] [address] [place], [address] Absolute lymphocyte countOrd ered By: Yee Jones on 02-23-2025 Lymphocytes Auto (Unsp spec) [#/Vol] 0.85 10*3/uL 0.83-4.51 [facility] Absolute neutrophil countOrd ered By: Yee Jones on 02-23-2025 Neutrophils (Bld) [#/Vol] 5.9 10*3/uL 2.0-7.7 [facility] Anion gap in Serum or Plasma Ordered By: Yee Kumaryajaira on 02-23-2025 Anion gap [Moles/Vol] 9 mmol/L 5-15 [facility] Automated lymphocyte count a s percentage of total leukocytesOrdered By: Yee Kumaryajaira on 02-23-2025 Lymphocytes/100 WBC Auto (Unsp spec) 11.2 % Low 19-41 [facility] BUN/creatinine ratioOrdered By: Yee Kumaryajaira on 02-23-2025 Urea nitrogen/Creatinine [Mass ratio] 31.6 mg/mg High 10-20 [facility] Basic Metabolic Profile (BMP )on 02-23-2025 BUN/CRE 31.6 RATIO High 10-20 [facility] Comment on above: Performed By: #### L 500.4050, L500.4100, L100.0500, L501.9520 #### [facility] [address] [place], [address] Calcium [Mass/Vol] 9.4 mg/dL Normal 7.6-11.0 [facility] Comment on above: Performed By: #### L 500.4050, L500.4100, L100.0500, L501.9520 #### [facility] [address] [place], [address] Chloride [Moles/Vol] 96 mmol/L Low 98-108 [facility] Comment on above: Performed By: #### L 500.4050, L500.4100, L100.0500, L501.9520 #### [facility] [address] [place], [address] CO2 [Moles/Vol] 40.2 mmol/L High 21.0-32.0 [facility] Comment on above: Performed By: #### L 500.4050, L500.4100, L100.0500, L501.9520 #### [facility] [address] [place], [address] Creatinine [Mass/Vol] 0.62 mg/dL Low 0.70-1.20 [facility] Comment on above: Performed By: #### L 500.4050, L500.4100, L100.0500, L501.9520 #### [facility] [address] [place], [address] ECRCL 86.12 ml/min Normal 50-250 [facility] Comment on above: Performed By: #### L 500.4050, L500.4100, L100.0500, L501.9520 #### [facility] [address] [place], [address] GAP 9 Normal 5-15 [facility] Comment on above: Performed By: #### L 500.4050, L500.4100, L100.0500, L501.9520 #### [facility] [address] [place], [address] GFR/1.73 sq M.predicted among non-blacks MDRD (S/P/Bld) [Vol rate/Area] 97 mL/min/{1.73_m2} Normal >60 [facility] Comment on above: Result Comment: mL/m in/1.73m2 CKD-EPI Creatinine Equation (2020) Performed By: #### L 500.4050, L500.4100, L100.0500, L501.9520 #### [facility] [address] [place], [address] Glucose [Mass/Vol] 114 mg/dL High 70-99 [facility] Comment on above: Performed By: #### L 500.4050, L500.4100, L100.0500, L501.9520 #### [facility] [address] [place], [address] Potassium [Moles/Vol] 3.3 mmol/L Normal 3.3-5.1 [facility] Comment on above: Performed By: #### L 500.4050, L500.4100, L100.0500, L501.9520 #### [facility] [address] [place], [address] Sodium [Moles/Vol] 145 mmol/L Normal 133-145 [facility] Comment on above: Performed By: #### L 500.4050, L500.4100, L100.0500, L501.9520 #### [facility] [address] [place], [address] Urea nitrogen [Mass/Vol] 20 mg/dL High 4-19 [facility] Comment on above: Performed By: #### L 500.4050, L500.4100, L100.0500, L501.9520 #### [facility] [address] [place], [address] Basophil percentageOrdered B y: Yee Jones on 02-23-2025 Basophils/100 WBC (Bld) 0.7 % 0-1 [facility] CBC W/Diff, Automatedon 01-27 Absolute Lymph 0.85 X10 3/uL Normal 0.83-4.51 [facility] Comment on above: Performed By: #### L 500.4050, L500.4100, L100.0500, L501.9520 #### [facility] [address] [place], [address] Absolute Neut 5.9 X10 3/uL Normal 2.0-7.7 [facility] Comment on above: Performed By: #### L 500.4050, L500.4100, L100.0500, L501.9520 #### [facility] [address] [place], [address] Basophils/100 WBC (Bld) 0.7 % Normal 0-1 [facility] Comment on above: Performed By: #### L 500.4050, L500.4100, L100.0500, L501.9520 #### [facility] [address] [place], [address] Eosinophils/100 WBC (Bld) 1.7 % Normal 0-5 [facility] Comment on above: Performed By: #### L 500.4050, L500.4100, L100.0500, L501.9520 #### [facility] [address] [place], [address] Erythrocyte distribution width (RBC) [Ratio] 14.3 % Normal 11.6-14.6 [facility] Comment on above: Performed By: #### L 500.4050, L500.4100, L100.0500, L501.9520 #### [facility] [address] [place], [address] Hematocrit (Bld) [Volume fraction] 45.7 % Normal 37-47 [facility] Comment on above: Performed By: #### L 500.4050, L500.4100, L100.0500, L501.9520 #### [facility] [address] [place], [address] Hemoglobin (Bld) [Mass/Vol] 14.1 g/dL Normal 12.0-15.0 [facility] Comment on above: Performed By: #### L 500.4050, L500.4100, L100.0500, L501.9520 #### [facility] [address] [place], [address] IG% 0.400 Normal 0.0-0.9 [facility] Comment on above: Result Comment: IG% - Immature Granulocytes (promyelocytes, myelocytes and metamyelocytes) > 1% indicates that a LEFT SHIFT is Present. Performed By: #### L 500.4050, L500.4100, L100.0500, L501.9520 #### [facility] [address] [place], [address] Lymphocytes/100 WBC (Bld) 11.2 % Low 19-41 [facility] Comment on above: Performed By: #### L 500.4050, L500.4100, L100.0500, L501.9520 #### [facility] [address] [place], [address] MCH (RBC) [Entitic mass] 30.9 pg Normal 27.0-32.0 [facility] Comment on above: Performed By: #### L 500.4050, L500.4100, L100.0500, L501.9520 #### [facility] [address] [place], [address] MCHC (RBC) [Mass/Vol] 30.9 g/dL Low 32-36 [facility] Comment on above: Performed By: #### L 500.4050, L500.4100, L100.0500, L501.9520 #### [facility] [address] [place], [address] MCV (RBC) [Entitic vol] 100.2 fL High 81-99 [facility] Comment on above: Performed By: #### L 500.4050, L500.4100, L100.0500, L501.9520 #### [facility] [address] [place], [address] Monocytes/100 WBC (Bld) 7.9 % Normal 0-10 [facility] Comment on above: Performed By: #### L 500.4050, L500.4100, L100.0500, L501.9520 #### [facility] [address] [place], [address] Neutrophils/100 WBC (Bld) 78.1 % High 47-70 [facility] Comment on above: Performed By: #### L 500.4050, L500.4100, L100.0500, L501.9520 #### [facility] [address] [place], [address] Nucleated RBC (Bld) [#/Vol] 0 10*3/uL Normal 0-5 [facility] Comment on above: Performed By: #### L 500.4050, L500.4100, L100.0500, L501.9520 #### [facility] [address] [place], [address] Platelet mean volume (Bld) [Entitic vol] 10.7 fL Normal 6.2-12.0 [facility] Comment on above: Performed By: #### L 500.4050, L500.4100, L100.0500, L501.9520 #### [facility] [address] [place], [address] Platelets (Bld) [#/Vol] 217 10*3/uL Normal 150-450 [facility] Comment on above: Performed By: #### L 500.4050, L500.4100, L100.0500, L501.9520 #### [facility] [address] [place], [address] RBC (Bld) [#/Vol] 4.56 10*6/uL Normal 4.2-5.[address] [facility] Comment on above: Performed By: #### L 500.4050, L500.4100, L100.0500, L501.9520 #### [facility] [address] [place], [address] RDW SD 53.5 fl High 35.1-43.9 [facility] Comment on above: Performed By: #### L 500.4050, L500.4100, L100.0500, L501.9520 #### [facility] [address] [place], [address] WBC (Bld) [#/Vol] 7.6 10*3/uL Normal 4.4-11.0 [facility] Comment on above: Performed By: #### L 500.4050, L500.4100, L100.0500, L501.9520 #### [facility] [address] [place], [address] Carbon dioxide, total [Moles /volume] in Central venous bloodOrdered By: Yee Jones on 02-23-2025 CO2 [Moles/Vol] 40.2 mmol/L High 21.0-32.0 [facility] Chloride assayOrdered By: Na lawanda Jones on 02-23-2025 Chloride [Moles/Vol] 96 mmol/L Low 98-108 [facility] Discharge Instructionon 01-27 Discharge Instruction [facility] Medical Records Department [address] [place] [address] Instructions for Home/Discharge Instructions 02/23/25 1320 MR#: [id number] Acct: [id number] Name: LISA LUCERO Rep #: [id number] : 1955 69 From: Yee Jones MD [...] [Daily Multi-Vitamin] Tablet 1 tab PO DAILY [place] Saline 0.65 % aerosol,spray 1 spray intranasal [...] DO; Dr. Kym Norton MD Signed Normal [facility] Eosinophil percentageOrdered By: Yee Jones on 02-23-2025 Eosinophils/100 WBC (Bld) 1.7 % 0-5 [facility] Erythrocyte distribution wid th (RBC) [Ratio]Ordered By: Yee Jones on 02-23-2025 Erythrocyte distribution width (RBC) [Entitic vol] 53.5 fL High 35.1-43.9 [facility] Erythrocyte distribution wid th ratioOrdered By: Yee Jones on 02-23-2025 Erythrocyte distribution width (RBC) [Ratio] 14.3 % 11.6-14.6 [facility] Erythrocyte distribution wid th standard deviationOrdered By: Yee Jones on 02-23-2025 Erythrocyte distribution width (RBC) [Ratio] 53.5 fl High 35.1-43.9 [facility] Estimation of creatinine dilan aranceOrdered By: Yee Jones on 02-23-2025 Estimated Creatinine Clearance Calc 86.12 ml/min 50-250 [facility] GFR/1.73 sq M.predicted rosalba g non-blacks MDRD (S/P/Bld) [Vol rate/Area]Ordered By: Yee Jones 02-23-2025 Estimated GFR (MDRD) Non-Af Amer 97 >60 [facility] Comment on above: mL/min/1.73m2 CKD-EP I Creatinine Equation (2020) Glomerular filtration rate ( GFR) estimation/1.73 sq m using serum, plasma, or whole bOrdered By: Yee Jones 02-23-2025 GFR/1.73 sq M.predicted among non-blacks MDRD (S/P/Bld) [Vol rate/Area] 97 mL/min/{1.73_m2} >60 [facility] Comment on above: mL/min/1.73m2 CKD-EP I Creatinine Equation (2020) Hematocrit Auto (Bld) [Volum e fraction]Ordered By: Yee Jones 02-23-2025 Hematocrit (Bld) [Volume fraction] 45.7 % 37-47 [facility] Hemoglobin measurementOrdere d By: Yee Jones 02-23-2025 Hemoglobin (Bld) [Mass/Vol] 14.1 g/dL 12.0-15.0 [facility] Immature granulocytes/100 WB C Auto (Bld)Ordered By: Yee Jones on 02-23-2025 Immature granulocytes/100 WBC (Bld) 0.400 % 0.0-0.9 [facility] Comment on above: IG% - Immature Granu locytes (promyelocytes, myelocytes and metamyelocytes) > 1% indicates that a LEFT SHIFT is Present. Lymphocytes Auto (Unsp spec) [#/Vol]Ordered By: Yee Jones on 02-23-2025 Lymphocytes (Bld) [#/Vol] 0.85 10*3/uL 0.83-4.51 [facility] Lymphocytes/100 WBC Auto (Un sp spec)Ordered By: Yee Jones on 02-23-2025 Lymphocytes/100 WBC (Bld) 11.2 % Low 19-41 [facility] MCV (mean corpuscular volume ) determinationOrdered By: Yee Jones on 02-23-2025 MCV (RBC) [Entitic vol] 100.2 fL High 81-99 [facility] Mean corpuscular hemoglobin (MCH) determinationOrdered By: Yeepeggy Jones on 02-23-2025 MCH (RBC) [Entitic mass] 30.9 pg 27.0-32.0 [facility] Mean corpuscular hemoglobin concentration (MCHC) determinationOrdered By: Yeepeggy Jones on 02-23-2025 MCHC (RBC) [Mass/Vol] 30.9 g/dL Low 32-36 [facility] Mean platelet volume determi nationOrdered By: Yee Jones on 02-23-2025 Platelet mean volume (Bld) [Entitic vol] 10.7 fL 6.2-12.0 [facility] Monocyte percentageOrdered B y: Yee Jones on 02-23-2025 Monocytes/100 WBC (Bld) 7.9 % 0-10 [facility] Neutrophil percentageOrdered By: Yeepeggy Jones on 02-23-2025 Neutrophils/100 WBC (Bld) 78.1 % High 47-70 [facility] Nucleated red blood cell per centageOrdered By: Yee Jones on 02-23-2025 Nucleated RBC/100 WBC (Bld) [Ratio] 0 % 0-5 [facility] Platelet countOrdered By: Lawanda webber Robert on 02-23-2025 Platelets (Bld) [#/Vol] 217 10*3/uL 150-450 [facility] Potassium (Unsp spec) [Mass/ Vol]Ordered By: Yee Jones on 02-23-2025 Potassium [Moles/Vol] 3.3 mmol/L 3.3-5.1 [facility] Potassium measurement (mass/ volume)Ordered By: Yee Jones on 02-23-2025 Potassium (Unsp spec) [Mass/Vol] 3.3 mmol/L 3.3-5.1 [facility] RBC Auto (Bld) [#/Vol]Ordere d By: Yee Jones on 02-23-2025 RBC (Bld) [#/Vol] 4.56 10*6/uL 4.2-5.[address] [facility] Serum creatinine measurement (mass/volume)Ordered By: Yee Jones on 02-23-2025 Creatinine [Mass/Vol] 0.62 mg/dL Low 0.70-1.20 [facility] Serum glucose measurement (m ass/volume)Ordered By: Yee Jones on 02-23-2025 Glucose [Mass/Vol] 114 mg/dL High 70-99 [facility] [facility] Serum or plasma calcium tad urement (mass/volume)Ordered By: Yee Jones on 02-23-2025 Calcium [Mass/Vol] 9.4 mg/dL 7.6-11.0 [facility] Serum or plasma urea nitroge n measurement (mass/volume)Ordered By: Yee Jones on 02-23-2025 Urea nitrogen [Mass/Vol] 20 mg/dL High 4-19 [facility] Sodium levelOrdered By: Yee Jones on 02-23-2025 Sodium [Moles/Vol] 145 mmol/L 133-145 [facility] White blood cell (WBC) count Ordered By: Yee Jones on 02-23-2025 WBC (Bld) [#/Vol] 7.6 10*3/uL 4.4-11.0 [facility] Basic Metabolic Profile (BMP )on 02-22-2025 BUN/CRE 36.2 RATIO High 10-20 [facility] Comment on above: Performed By: #### L 500.4050, L500.4100, L100.0500, L501.9520 #### [facility] [address] [place], [address] Calcium [Mass/Vol] 9.4 mg/dL Normal 7.6-11.0 [facility] Comment on above: Performed By: #### L 500.4050, L500.4100, L100.0500, L501.9520 #### [facility] [address] [place], [address] Chloride [Moles/Vol] 96 mmol/L Low 98-108 [facility] Comment on above: Performed By: #### L 500.4050, L500.4100, L100.0500, L501.9520 #### [facility] [address] [place], [address] CO2 [Moles/Vol] 36.4 mmol/L High 21.0-32.0 [facility] Comment on above: Performed By: #### L 500.4050, L500.4100, L100.0500, L501.9520 #### [facility] [address] [place], [address] Creatinine [Mass/Vol] 0.60 mg/dL Low 0.70-1.20 [facility] Comment on above: Performed By: #### L 500.4050, L500.4100, L100.0500, L501.9520 #### [facility] [address] [place], [address] ECRCL 86.29 ml/min Normal 50-250 [facility] Comment on above: Performed By: #### L 500.4050, L500.4100, L100.0500, L501.9520 #### [facility] [address] [place], [address] GAP 11 Normal 5-15 [facility] Comment on above: Performed By: #### L 500.4050, L500.4100, L100.0500, L501.9520 #### [facility] [address] [place], [address] GFR/1.73 sq M.predicted among non-blacks MDRD (S/P/Bld) [Vol rate/Area] 98 mL/min/{1.73_m2} Normal >60 [facility] Comment on above: Result Comment: mL/m in/1.73m2 CKD-EPI Creatinine Equation (2020) Performed By: #### L 500.4050, L500.4100, L100.0500, L501.9520 #### [facility] [address] [place], [address] Glucose [Mass/Vol] 115 mg/dL High 70-99 [facility] Comment on above: Performed By: #### L 500.4050, L500.4100, L100.0500, L501.9520 #### [facility] [address] [place], [address] Potassium [Moles/Vol] 3.5 mmol/L Normal 3.3-5.1 [facility] Comment on above: Performed By: #### L 500.4050, L500.4100, L100.0500, L501.9520 #### [facility] [address] [place], [address] Sodium [Moles/Vol] 144 mmol/L Normal 133-145 [facility] Comment on above: Performed By: #### L 500.4050, L500.4100, L100.0500, L501.9520 #### [facility] [address] [place], [address] Urea nitrogen [Mass/Vol] 22 mg/dL High 4-19 [facility] Comment on above: Performed By: #### L 500.4050, L500.4100, L100.0500, L501.9520 #### [facility] [address] [place], [address] CBC-Complete Blood Cnt No Di ffon 02-22-2025 Erythrocyte distribution width (RBC) [Ratio] 14.5 % Normal 11.6-14.6 [facility] Comment on above: Performed By: #### L 500.4050, L500.4100, L100.0500, L501.9520 #### [facility] [address] [place], [address] Hematocrit (Bld) [Volume fraction] 42.6 % Normal 37-47 [facility] Comment on above: Performed By: #### L 500.4050, L500.4100, L100.0500, L501.9520 #### [facility] [address] [place], [address] Hemoglobin (Bld) [Mass/Vol] 13.2 g/dL Normal 12.0-15.0 [facility] Comment on above: Performed By: #### L 500.4050, L500.4100, L100.0500, L501.9520 #### [facility] [address] [place], [address] MCH (RBC) [Entitic mass] 31.4 pg Normal 27.0-32.0 [facility] Comment on above: Performed By: #### L 500.4050, L500.4100, L100.0500, L501.9520 #### [facility] [address] [place], [address] MCHC (RBC) [Mass/Vol] 31.0 g/dL Low 32-36 [facility] Comment on above: Performed By: #### L 500.4050, L500.4100, L100.0500, L501.9520 #### [facility] [address] [place], [address] MCV (RBC) [Entitic vol] 101.2 fL High 81-99 [facility] Comment on above: Performed By: #### L 500.4050, L500.4100, L100.0500, L501.9520 #### [facility] [address] [place], [address] Platelet mean volume (Bld) [Entitic vol] 11.3 fL Normal 6.2-12.0 [facility] Comment on above: Performed By: #### L 500.4050, L500.4100, L100.0500, L501.9520 #### [facility] [address] [place], [address] Platelets (Bld) [#/Vol] 189 10*3/uL Normal 150-450 [facility] Comment on above: Performed By: #### L 500.4050, L500.4100, L100.0500, L501.9520 #### [facility] [address] [place], [address] RBC (Bld) [#/Vol] 4.21 10*6/uL Normal 4.2-5.[address] [facility] Comment on above: Performed By: #### L 500.4050, L500.4100, L100.0500, L501.9520 #### [facility] [address] [place], [address] RDW SD 54.4 fl High 35.1-43.9 [facility] Comment on above: Performed By: #### L 500.4050, L500.4100, L100.0500, L501.9520 #### [facility] [address] [place], [address] WBC (Bld) [#/Vol] 8.1 10*3/uL Normal 4.4-11.0 [facility] Comment on above: Performed By: #### L 500.4050, L500.4100, L100.0500, L501.9520 #### [facility] [address] [place], [address] Magnesiumon 02-22-2025 Magnesium [Mass/Vol] 2.2 mg/dL Normal 1.5-2.2 [facility] Comment on above: Performed By: #### L 500.4050, L500.4100, L100.0500, L501.9520 #### [facility] [address] [place], [address] Magnesium (Unsp spec) [Mass/ Vol]Ordered By: Claudia Valerio on 02-22-2025 Magnesium [Mass/Vol] 2.2 mg/dL 1.5-2.2 [facility] Magnesium measurement (mass/ volume)Ordered By: Claudia Valerio on 02-22-2025 Magnesium (Unsp spec) [Mass/Vol] 2.2 mg/dL 1.5-2.2 [facility] Phosphoruson 02-22-2025 Phosphate [Mass/Vol] 4.9 mg/dL High 2.7-4.5 [facility] Comment on above: Performed By: #### L 500.4050, L500.4100, L100.0500, L501.9520 #### [facility] [address] [place], [address] Serum phosphorus measurement Ordered By: Claudia Valerio on 02-22-2025 Phosphorus Level 4.9 mg/dL High 2.7-4.5 [facility] Basic Metabolic Profile (BMP )on 02-21-2025 BUN/CRE 40.7 RATIO High 10-20 [facility] Comment on above: Performed By: #### L 500.4050, L500.4100, L100.0500, L501.9520 #### [facility] [address] [place], [address] Calcium [Mass/Vol] 8.9 mg/dL Normal 7.6-11.0 [facility] Comment on above: Performed By: #### L 500.4050, L500.4100, L100.0500, L501.9520 #### [facility] [address] [place], [address] Chloride [Moles/Vol] 96 mmol/L Low 98-108 [facility] Comment on above: Performed By: #### L 500.4050, L500.4100, L100.0500, L501.9520 #### [facility] [address] [place], [address] CO2 [Moles/Vol] 39.0 mmol/L High 21.0-32.0 [facility] Comment on above: Performed By: #### L 500.4050, L500.4100, L100.0500, L501.9520 #### [facility] [address] [place], [address] Creatinine [Mass/Vol] 0.54 mg/dL Low 0.70-1.20 [facility] Comment on above: Performed By: #### L 500.4050, L500.4100, L100.0500, L501.9520 #### [facility] [address] [place], [address] ECRCL 85.99 ml/min Normal 50-250 [facility] Comment on above: Performed By: #### L 500.4050, L500.4100, L100.0500, L501.9520 #### [facility] [address] [place], [address] GAP 9 Normal 5-15 [facility] Comment on above: Performed By: #### L 500.4050, L500.4100, L100.0500, L501.9520 #### [facility] [address] [place], [address] GFR/1.73 sq M.predicted among non-blacks MDRD (S/P/Bld) [Vol rate/Area] 101 mL/min/{1.73_m2} Normal >60 [facility] Comment on above: Result Comment: mL/m in/1.73m2 CKD-EPI Creatinine Equation (2020) Performed By: #### L 500.4050, L500.4100, L100.0500, L501.9520 #### [facility] [address] [place], [address] Glucose [Mass/Vol] 119 mg/dL High 70-99 [facility] Comment on above: Performed By: #### L 500.4050, L500.4100, L100.0500, L501.9520 #### [facility] [address] [place], [address] Potassium [Moles/Vol] 3.3 mmol/L Normal 3.3-5.1 [facility] Comment on above: Performed By: #### L 500.4050, L500.4100, L100.0500, L501.9520 #### [facility] [address] [place], [address] Sodium [Moles/Vol] 144 mmol/L Normal 133-145 [facility] Comment on above: Performed By: #### L 500.4050, L500.4100, L100.0500, L501.9520 #### [facility] [address] [place], [address] Urea nitrogen [Mass/Vol] 22 mg/dL High 4-19 [facility] Comment on above: Performed By: #### L 500.4050, L500.4100, L100.0500, L501.9520 #### [facility] [address] [place], [address] CBC-Complete Blood Cnt No Di ffon 04-27-2025 Erythrocyte distribution width (RBC) [Ratio] 14.6 % Normal 11.6-14.6 [facility] Comment on above: Performed By: #### L 500.4050, L500.4100, L100.0500, L501.9520 #### [facility] [address] [place], [address] Hematocrit (Bld) [Volume fraction] 40.3 % Normal 37-47 [facility] Comment on above: Performed By: #### L 500.4050, L500.4100, L100.0500, L501.9520 #### [facility] [address] [place], [address] Hemoglobin (Bld) [Mass/Vol] 12.6 g/dL Normal 12.0-15.0 [facility] Comment on above: Performed By: #### L 500.4050, L500.4100, L100.0500, L501.9520 #### [facility] [address] [place], [address] MCH (RBC) [Entitic mass] 31.3 pg Normal 27.0-32.0 [facility] Comment on above: Performed By: #### L 500.4050, L500.4100, L100.0500, L501.9520 #### [facility] [address] [place], [address] MCHC (RBC) [Mass/Vol] 31.3 g/dL Low 32-36 [facility] Comment on above: Performed By: #### L 500.4050, L500.4100, L100.0500, L501.9520 #### [facility] [address] [place], [address] MCV (RBC) [Entitic vol] 100.2 fL High 81-99 [facility] Comment on above: Performed By: #### L 500.4050, L500.4100, L100.0500, L501.9520 #### [facility] [address] [place], [address] Platelet mean volume (Bld) [Entitic vol] 10.6 fL Normal 6.2-12.0 [facility] Comment on above: Performed By: #### L 500.4050, L500.4100, L100.0500, L501.9520 #### [facility] [address] [place], [address] Platelets (Bld) [#/Vol] 226 10*3/uL Normal 150-450 [facility] Comment on above: Performed By: #### L 500.4050, L500.4100, L100.0500, L501.9520 #### [facility] [address] [place], [address] RBC (Bld) [#/Vol] 4.02 10*6/uL Low 4.2-5.[address] [facility] Comment on above: Performed By: #### L 500.4050, L500.4100, L100.0500, L501.9520 #### [facility] [address] [place], [address] RDW SD 54.2 fl High 35.1-43.9 [facility] Comment on above: Performed By: #### L 500.4050, L500.4100, L100.0500, L501.9520 #### [facility] [address] [place], [address] WBC (Bld) [#/Vol] 8.9 10*3/uL Normal 4.4-11.0 [facility] Comment on above: Performed By: #### L 500.4050, L500.4100, L100.0500, L501.9520 #### [facility] [address] [place], [address] Magnesiumon 02-21-2025 Magnesium [Mass/Vol] 1.9 mg/dL Normal 1.5-2.2 [facility] Comment on above: Performed By: #### L 500.4050, L500.4100, L100.0500, L501.9520 #### [facility] [address] [place], [address] Phosphoruson 02-21-2025 Phosphate [Mass/Vol] 3.3 mg/dL Normal 2.7-4.5 [facility] Comment on above: Performed By: #### L 500.4050, L500.4100, L100.0500, L501.9520 #### [facility] [address] [place], [address] Urine Cultureon 02-21-2025 URC Below infection leve l. Mixed Gram Pos Gram Neg Org [place] Count 1000-10,000 MIXC Mixed contaminants. Submit a new specimen if indicated. Normal [facility] Comment on above: Performed By: #### L 500.4050, L500.4100, L100.0500, L501.9520 #### [facility] [address] [place], [address] Bilirubin, totalOrdered By: Kym Norton on 02-20-2025 Bilirubin [Mass/Vol] 0.43 mg/dL 0.00-1.30 [facility] CBC-Complete Blood Cnt No Di ffon 02-20-2025 Erythrocyte distribution width (RBC) [Ratio] 14.4 % Normal 11.6-14.6 [facility] Comment on above: Performed By: #### L 500.4050, L500.4100, L100.0500, L501.9520 #### [facility] [address] [place], [address] Hematocrit (Bld) [Volume fraction] 39.2 % Normal 37-47 [facility] Comment on above: Performed By: #### L 500.4050, L500.4100, L100.0500, L501.9520 #### [facility] [address] [place], [address] Hemoglobin (Bld) [Mass/Vol] 12.4 g/dL Normal 12.0-15.0 [facility] Comment on above: Performed By: #### L 500.4050, L500.4100, L100.0500, L501.9520 #### [facility] [address] [place], [address] MCH (RBC) [Entitic mass] 31.2 pg Normal 27.0-32.0 [facility] Comment on above: Performed By: #### L 500.4050, L500.4100, L100.0500, L501.9520 #### [facility] [address] [place], [address] MCHC (RBC) [Mass/Vol] 31.6 g/dL Low 32-36 [facility] Comment on above: Performed By: #### L 500.4050, L500.4100, L100.0500, L501.9520 #### [facility] [address] [place], [address] MCV (RBC) [Entitic vol] 98.7 fL Normal 81-99 [facility] Comment on above: Performed By: #### L 500.4050, L500.4100, L100.0500, L501.9520 #### [facility] [address] [place], [address] Platelet mean volume (Bld) [Entitic vol] 11.2 fL Normal 6.2-12.0 [facility] Comment on above: Performed By: #### L 500.4050, L500.4100, L100.0500, L501.9520 #### [facility] [address] [place], [address] Platelets (Bld) [#/Vol] 223 10*3/uL Normal 150-450 [facility] Comment on above: Performed By: #### L 500.4050, L500.4100, L100.0500, L501.9520 #### [facility] [address] [place], [address] RBC (Bld) [#/Vol] 3.97 10*6/uL Low 4.2-5.[address] [facility] Comment on above: Performed By: #### L 500.4050, L500.4100, L100.0500, L501.9520 #### [facility] [address] [place], [address] RDW SD 52.0 fl High 35.1-43.9 [facility] Comment on above: Performed By: #### L 500.4050, L500.4100, L100.0500, L501.9520 #### [facility] [address] [place], [address] WBC (Bld) [#/Vol] 8.2 10*3/uL Normal 4.4-11.0 [facility] Comment on above: Performed By: #### L 500.4050, L500.4100, L100.0500, L501.9520 #### [facility] [address] [place], [address] CTA Chest W/WO Contraston CTA Chest W/WO Contrast [facility] Imaging Services [address] [place] [address] CTA Chest W/WO Contrast MR#: [id number] Acct: [id number] Name: LISA LUCERO Bora Rep #: [id number] : 1955 F 69 From: Rustam Drummond MD PCP: Dr. Phuc Martines DO Status: ADM IN Study: CTA Chest W/WO Contrast Date of Exam: 02/20/25 Exam# [id number] Ordering Dr: Claudia Valerio DO EXAM: CT [...] in 6 months is recommended. Reading Location: [facility] CC: Dr. Phuc Martines, ; Dr. Claudia Valerio DO Piano Case Maker: Signed Normal [facility] Calculated very low density lipoprotein (VLDL) cholesterol measurementOrdered By: Kym Norton on 02-20-2025 Calculated very low density lipoprotein (VLDL) cholesterol measurement 12 mg/dL [facility] VLDL Cholesterol 12 mg/dL [facility] Comprehensive Metabolic Prof ilon 02-20-2025 Albumin [Mass/Vol] 3.8 g/dL Normal 3.4-4.8 [facility] Comment on above: Performed By: #### L 500.4680, L500.4100, L100.0500, L501.9520 #### [facility] [address] [place], [address] Albumin/Globulin [Mass ratio] 1.2 {ratio} Normal 0.9-2.4 [facility] Comment on above: Performed By: #### L 500.4050, L500.4100, L100.0500, L501.9520 #### [facility] [address] [place], [address] ALK PHOS 72 U/L Normal 35-104 [facility] Comment on above: Performed By: #### L 500.4050, L500.4100, L100.0500, L501.9520 #### [facility] [address] [place], [address] ALT [Catalytic activity/Vol] 42 U/L High <=34 [facility] Comment on above: Performed By: #### L 500.4050, L500.4100, L100.0500, L501.9520 #### [facility] [address] [place], [address] AST [Catalytic activity/Vol] 27 U/L Normal <=31 [facility] Comment on above: Performed By: #### L 500.4050, L500.4100, L100.0500, L501.9520 #### [facility] [address] [place], [address] Bilirubin [Mass/Vol] 0.43 mg/dL Normal 0.00-1.30 [facility] Comment on above: Performed By: #### L 500.4050, L500.4100, L100.0500, L501.9520 #### [facility] [address] [place], [address] BUN/CRE 30.9 RATIO High 10-20 [facility] Comment on above: Performed By: #### L 500.4050, L500.4100, L100.0500, L501.9520 #### [facility] [address] [place], [address] Calcium [Mass/Vol] 8.9 mg/dL Normal 7.6-11.0 [facility] Comment on above: Performed By: #### L 500.4050, L500.4100, L100.0500, L501.9520 #### [facility] [address] [place], [address] Chloride [Moles/Vol] 95 mmol/L Low 98-108 [facility] Comment on above: Performed By: #### L 500.4050, L500.4100, L100.0500, L501.9520 #### [facility] [address] [place], [address] CO2 [Moles/Vol] 34.3 mmol/L High 21.0-32.0 [facility] Comment on above: Performed By: #### L 500.4050, L500.4100, L100.0500, L501.9520 #### [facility] [address] [place], [address] Creatinine [Mass/Vol] 0.56 mg/dL Low 0.70-1.20 [facility] Comment on above: Performed By: #### L 500.4050, L500.4100, L100.0500, L501.9520 #### [facility] [address] [place], [address] ECRCL 86.85 ml/min Normal 50-250 [facility] Comment on above: Performed By: #### L 500.4050, L500.4100, L100.0500, L501.9520 #### [facility] [address] [place], [address] GAP 13 Normal 5-15 [facility] Comment on above: Performed By: #### L 500.4050, L500.4100, L100.0500, L501.9520 #### [facility] [address] [place], [address] GFR/1.73 sq M.predicted among non-blacks MDRD (S/P/Bld) [Vol rate/Area] 100 mL/min/{1.73_m2} Normal >60 [facility] Comment on above: Result Comment: mL/m in/1.73m2 CKD-EPI Creatinine Equation (2020) Performed By: #### L 500.4050, L500.4100, L100.0500, L501.9520 #### [facility] [address] [place], [address] Globulin (S) [Mass/Vol] 3.2 g/dL Normal 2.2-4.2 [facility] Comment on above: Performed By: #### L 500.4050, L500.4100, L100.0500, L501.9520 #### [facility] [address] [place], [address] Glucose [Mass/Vol] 141 mg/dL High 70-99 [facility] Comment on above: Performed By: #### L 500.4050, L500.4100, L100.0500, L501.9520 #### [facility] [address] [place], [address] Potassium [Moles/Vol] 3.8 mmol/L Normal 3.3-5.1 [facility] Comment on above: Result Comment: Hemo lysis present, Results??could be affected. ?? Performed By: #### L 500.4050, L500.4100, L100.0500, L501.9520 #### [facility] [address] [place], [address] Sodium [Moles/Vol] 142 mmol/L Normal 133-145 [facility] Comment on above: Performed By: #### L 500.4050, L500.4100, L100.0500, L501.9520 #### [facility] [address] [place], [address] T PROT 7.0 g/dL Normal 5.9-8.4 [facility] Comment on above: Performed By: #### L 500.4050, L500.4100, L100.0500, L501.9520 #### [facility] [address] [place], [address] Urea nitrogen [Mass/Vol] 17 mg/dL Normal 4-19 [facility] Comment on above: Performed By: #### L 500.4050, L500.4100, L100.0500, L501.9520 #### [facility] [address] [place], [address] Echocardiogram study reportO rdered By: Mercy Purvis on 02-20-[address] [facility] [address] [place] [address] Echo Complete W/ Contrast 02/20/25 1104 MR#: [id number] Acct: [id number] Name: LISA LUCERO Rep #:[id number] : [...] ~ Date Dictated: 02/20/25 1104 Date Transcribed: 02/20/251155 Piano Case Maker: Signed [facility] Work Phone: LDL calc ser/plasOrdered By: Kym Norton on 02-20-2025 Cholesterol in LDL [Mass/Vol] 101 mg/dL [facility] Comment on above: Mixakliiux=652-392 m g/dL & Higher Zsrd=423 mg/dL or greater LDL Cholesterol, Calculated 101 mg/dL [facility] Comment on above: Sflmrtgemx=980-647 m g/dL & Higher Pmlb=409 mg/dL or greater Laboratory - Chemistry and C hemistry - challengeOrdered By: Kym Norton on 02-20-2025 AST [Catalytic activity/Vol] 27 U/L <32 [facility] Lipid Profileon 02-20-2025 CHOL:HDL 2.63 Normal [facility] Comment on above: Performed By: #### L 500.4050, L500.4100, L100.0500, L501.9520 #### [facility] [address] [place], [address] Cholesterol [Mass/Vol] 183 mg/dL Normal <=200 [facility] Comment on above: Result Comment: Chol esterol level, Desirable <200 mg/dL Borderline high cholesterol 200-239 mg/dL High cholesterol >=240 mg/dL Recommendations of the NCEP Adult Treatment Panel for the following risk-cutoff thresholds for the [place] population. Performed By: #### L 500.4050, L500.4100, L100.0500, L501.9520 #### [facility] [address] [place], [address] Cholesterol in HDL [Mass/Vol] 70 mg/dL Normal [facility] Comment on above: Result Comment: Monika onal Cholesterol Education Program (NCEP) guidelines: <40 mg/dL: Low HDL-cholesterol (major risk factor for CHD) >= 60 mg/dL: High HDL-cholesterol (negative risk factor for CHD) HDL-cholesterol is affected by a number of factors, e.g. smoking, exercise, hormones, sex and age. Performed By: #### L 500.4050, L500.4100, L100.0500, L501.9520 #### [facility] [address] [place], [address] Cholesterol in LDL [Mass/Vol] 101 mg/dL Normal [facility] Comment on above: Result Comment: Bord bpldey=752-305 mg/dL Higher Feiy=102 mg/dL or greater Performed By: #### L 500.4050, L500.4100, L100.0500, L501.9520 #### [facility] [address] [place], [address] Cholesterol in VLDL [Mass/Vol] 12 mg/dL Normal 5-40 [facility] Comment on above: Performed By: #### L 500.4050, L500.4100, L100.0500, L501.9520 #### [facility] [address] [place], [address] Triglyceride [Mass/Vol] 61 mg/dL Normal [facility] Comment on above: Result Comment: The drugs N-Acetylcysteine and Metamizole may falsely depress this assay. Normal range: <150 mg/dL Borderline High: 150-199 mg/dL High: 200-499 mg/dL Very High: >500 mg/dL Performed By: #### L 500.4050, L500.4100, L100.0500, L501.9520 #### [facility] [address] [place], [address] Magnesiumon 02-20-2025 Magnesium [Mass/Vol] 1.9 mg/dL Normal 1.5-2.2 [facility] Comment on above: Order Comment: Comme nts: Add onto previous labs if possible Performed By: #### L 500.4050, L500.4100, L100.0500, L501.9520 #### [facility] [address] [place], [address] RESPIRATORY PANEL MOLECULARo n 02-20-2025 RP PANEL [...] Not Detected RSV B Not Detected Normal [facility] Comment on above: Performed By: #### L 500.4050, L500.4100, L100.0500, L501.9520 #### [facility] [address] [place], [address] Respiratory pathogens DNA an d RNA panel RENETTA+probe (Resp)Ordered By: Claudia Valerio on 02-20-2025 Respiratory Panel (PCR) [facility] Respiratory pathogens detect ion panel by molecular detection methodOrdered By: Claudia Valerio on 02-20-2025 Respiratory pathogens DNA and RNA panel RENETTA+probe (Resp) [facility] Screening total cholesterol/ high density lipoprotein (HDL) cholesterol ratioOrdered By: Kym Norton on 02-20-2025 Cholesterol.total/Cho lesterol in HDL [Mass ratio] 2.63 {ratio} [facility] Serum globulin measurementOr dered By: Kym Norton on 02-20-2025 Globulin (S) [Mass/Vol] 3.2 g/dL 2.2-4.2 [facility] Serum or plasma alanine lindsey otransferase (ALT) measurementOrdered By: Kym Norton on 02-20-2025 ALT [Catalytic activity/Vol] 42 U/L High <35 [facility] Serum or plasma albumin tad urement (mass/volume)Ordered By: Kym Norton on 02-20-2025 Albumin [Mass/Vol] 3.8 g/dL 3.4-4.8 [facility] Serum or plasma albumin/glob ulin mass ratioOrdered By: Kym Norton on 02-20-2025 Albumin/Globulin [Mass ratio] 1.2 {ratio} 0.9-2.4 [facility] Serum or plasma alkaline zita sphatase measurementOrdered By: Kym Norton on 02-20-2025 ALP [Catalytic activity/Vol] 72 U/L 35-104 [facility] Serum or plasma cholesterol in HDL measurement (mass/volume)Ordered By: Kym Norton on 02-20-2025 Cholesterol in HDL [Mass/Vol] 70 mg/dL >40 [facility] Comment on above: National Cholesterol Education Program (NCEP) guidelines:<40 mg/dL: Low HDL-cholesterol (major risk factor for CHD)>= 60 mg/dL: High HDL-cholesterol (negative risk factor for CHD)HDL-cholesterol is affected by a number of factors, e.g. smoking, exercise, hormones, sex and age. Serum or plasma cholesterol measurement (mass/volume)Ordered By: Kym Norton on 02-20-2025 Cholesterol [Mass/Vol] 183 mg/dL <201 [facility] Comment on above: Cholesterol level, D esirable <200 mg/dLBorderline high cholesterol 200-239 mg/dLHigh cholesterol >=240 mg/dLRecommendations of the NCEP Adult Treatment Panel for the following risk-cutoff thresholds for the [place] population. TSH DL <= 0.005 mIU/L QnOrde red By: Kym Norton on 02-20-2025 Thyroid Stimulating Hormone (TSH) 0.626 uIU/mL 0.300-4.20 0 [facility] TSH Qn 0.626 uIU/mL 0.300-4.20 0 [facility] Thyroid Stim Hormone (TSH)on 02-20-2025 TSH 0.626 uIU/mL Normal 0.300-4.20 0 [facility] Comment on above: Performed By: #### L 500.4050, L500.4100, L100.0500, L501.9520 #### [facility] [address] [place], [address] Total proteinOrdered By: Marychuy Norton on 02-20-2025 Protein [Mass/Vol] 7.0 g/dL 5.9-8.4 [facility] Triglycerides measurementOrd ered By: Kym Norton on 02-20-2025 Triglyceride [Mass/Vol] 61 mg/dL <199 [facility] Comment on above: The drugs N-Acetylcy steine and Metamizole may falsely depress this assay. Normal range: <150 mg/dLBorderline High: 150-199 mg/dLHigh: 200-499 mg/dLVery High: >500 mg/dL Activated partial thrombopla stin time (aPTT) in platelet poor plasma by coagulation aOrdered By: Linwood Ivy on 02-19-2025 aPTT Coag (PPP) [Time] 27.1 s 24.1-36.2 [facility] Bilirubin Test strip Ql (U)O rdered By: Linwood Ivy on 02-19-2025 Bilirubin Ql (U) Negative Negative [facility] Blood cultureOrdered By: Melissa Ivy on 02-19-2025 Bacteria identified Cx Nom (Bld) No growth in 5 days. [facility] Bacteria identified Cx Nom (Bld) No growth in 5 days. [facility] CBC W/Diff, Automatedon 01-27 Absolute Lymph 0.84 X10 3/uL Normal 0.83-4.51 [facility] Comment on above: Performed By: #### L 300.3900, L100.0100, L500.4050, L300.4310, L503.6005, M200.1000 #### [facility] [address] [place], [address] Absolute Neut 6.9 X10 3/uL Normal 2.0-7.7 [facility] Comment on above: Performed By: #### L 300.3900, L100.0100, L500.4050, L300.4310, L503.6005, M200.1000 #### [facility] [address] [place], [address] Basophils/100 WBC (Bld) 0.5 % Normal 0-1 [facility] Comment on above: Performed By: #### L 300.3900, L100.0100, L500.4050, L300.4310, L503.6005, M200.1000 #### [facility] [address] [place], [address] Eosinophils/100 WBC (Bld) 1.0 % Normal 0-5 [facility] Comment on above: Performed By: #### L 300.3900, L100.0100, L500.4050, L300.4310, L503.6005, M200.1000 #### [facility] [address] [place], [address] Erythrocyte distribution width (RBC) [Ratio] 14.6 % Normal 11.6-14.6 [facility] Comment on above: Performed By: #### L 300.3900, L100.0100, L500.4050, L300.4310, L503.6005, M200.1000 #### [facility] [address] [place], [address] Hematocrit (Bld) [Volume fraction] 41.2 % Normal 37-47 [facility] Comment on above: Performed By: #### L 300.3900, L100.0100, L500.4050, L300.4310, L503.6005, M200.1000 #### [facility] [address] [place], [address] Hemoglobin (Bld) [Mass/Vol] 13.0 g/dL Normal 12.0-15.0 [facility] Comment on above: Performed By: #### L 300.3900, L100.0100, L500.4050, L300.4310, L503.6005, M200.1000 #### [facility] [address] [place], [address] IG% 0.200 Normal 0.0-0.9 [facility] Comment on above: Result Comment: IG% - Immature Granulocytes (promyelocytes, myelocytes and metamyelocytes) > 1% indicates that a LEFT SHIFT is Present. Performed By: #### L 300.3900, L100.0100, L500.4050, L300.4310, L503.6005, M200.1000 #### [facility] [address] [facility] [place], [address] Lymphocytes/100 WBC (Bld) 9.8 % Low 19-41 [facility] Comment on above: Performed By: #### L 300.3900, L100.0100, L500.4050, L300.4310, L503.6005, M200.1000 #### [facility] [address] [place], [address] MCH (RBC) [Entitic mass] 31.3 pg Normal 27.0-32.0 [facility] Comment on above: Performed By: #### L 300.3900, L100.0100, L500.4050, L300.4310, L503.6005, M200.1000 #### [facility] [address] [place], [address] MCHC (RBC) [Mass/Vol] 31.6 g/dL Low 32-36 [facility] Comment on above: Performed By: #### L 300.3900, L100.0100, L500.4050, L300.4310, L503.6005, M200.1000 #### [facility] [address] [place], [address] MCV (RBC) [Entitic vol] 99.0 fL Normal 81-99 [facility] Comment on above: Performed By: #### L 300.3900, L100.0100, L500.4050, L300.4310, L503.6005, M200.1000 #### [facility] [address] [place], [address] Monocytes/100 WBC (Bld) 8.5 % Normal 0-10 [facility] Comment on above: Performed By: #### L 300.3900, L100.0100, L500.4050, L300.4310, L503.6005, M200.1000 #### [facility] [address] [place], [address] Neutrophils/100 WBC (Bld) 80.0 % High 47-70 [facility] Comment on above: Performed By: #### L 300.3900, L100.0100, L500.4050, L300.4310, L503.6005, M200.1000 #### [facility] [address] [place], [address] Nucleated RBC (Bld) [#/Vol] 0 10*3/uL Normal 0-5 [facility] Comment on above: Performed By: #### L 300.3900, L100.0100, L500.4050, L300.4310, L503.6005, M200.1000 #### [facility] [address] [place], [address] Platelet mean volume (Bld) [Entitic vol] 10.4 fL Normal 6.2-12.0 [facility] Comment on above: Performed By: #### L 300.3900, L100.0100, L500.4050, L300.4310, L503.6005, M200.1000 #### [facility] [address] [place], [address] Platelets (Bld) [#/Vol] 231 10*3/uL Normal 150-450 [facility] Comment on above: Performed By: #### L 300.3900, L100.0100, L500.4050, L300.4310, L503.6005, M200.1000 #### [facility] [address] [place], [address] RBC (Bld) [#/Vol] 4.16 10*6/uL Low 4.2-5.[address] [facility] Comment on above: Performed By: #### L 300.3900, L100.0100, L500.4050, L300.4310, L503.6005, M200.1000 #### [facility] [address] [place], [address] RDW SD 53.2 fl High 35.1-43.9 [facility] Comment on above: Performed By: #### L 300.3900, L100.0100, L500.4050, L300.4310, L503.6005, M200.1000 #### [facility] [address] [place], [address] WBC (Bld) [#/Vol] 8.6 10*3/uL Normal 4.4-11.0 [facility] Comment on above: Performed By: #### L 300.3900, L100.0100, L500.4050, L300.4310, L503.6005, M200.1000 #### [facility] [address] [place], [address] Chest PA and Lateralon 02-19 Chest PA and Lateral [facility] [address] [place] [address] Chest PA and Lateral MR#: [id number] Acct: [id number] Name: LISA LUCERO Rep #: [id number] : 1955 F 69 From: Dane Mccabe MD PCP: Dr. Phuc Martines, DO Status: REG ER Study: Chest PA and Lateral Date of Exam: 02/19/25 Exam# [id number] Ordering Dr: Linwood Ivy DO PROCEDURE: CHEST PA AND LATERAL 02/19/2025 REASON FOR EXAM: SOB TECHNIQUE: Frontal and lateral views of the chest. FINDINGS: Lungs: Pulmonary venous congestive changes are suspected. No pneumonia. Pleura: No pleural effusions, thickening, or pneumothorax. Heart: Mild cardiac enlargement. Mediastinum/Elyssa: Unremarkable. Great vessels: Unremarkable. Bones/soft tissues: Unremarkable. RAD/Chest PA and Lateral IMPRESSION: Pulmonary venous congestive changes. Reading Location: [facility] CC: Dr. Phuc Martines DO; Dr. Linwood Ivy DO Piano Case Maker: Signed Normal [facility] Comprehensive Metabolic Prof ilon 02-19-2025 Albumin [Mass/Vol] 4.0 g/dL Normal 3.4-4.8 [facility] Comment on above: Performed By: #### L 300.3900, L100.0100, L500.4050, L300.4310, L503.6005, M200.1000 ####[facility] [address] [place], [address] Albumin/Globulin [Mass ratio] 1.2 {ratio} Normal 0.9-2.4 [facility] Comment on above: Performed By: #### L 300.3900, L100.0100, L500.4050, L300.4310, L503.6005, M200.1000 ####[facility] [address] [place], [address] ALK PHOS 80 U/L Normal 35-104 [facility] Comment on above: Performed By: #### L 300.3900, L100.0100, L500.4050, L300.4310, L503.6005, M200.1000 ####[facility] [address] [place], [address] ALT [Catalytic activity/Vol] 45 U/L High <=34 [facility] Comment on above: Performed By: #### L 300.3900, L100.0100, L500.4050, L300.4310, L503.6005, M200.1000 ####[facility] [address] [place] [place], [address] AST [Catalytic activity/Vol] 29 U/L Normal <=31 [facility] Comment on above: Performed By: #### L 300.3900, L100.0100, L500.4050, L300.4310, L503.6005, M200.1000 ####[facility] [address] [place], [address] Bilirubin [Mass/Vol] 0.69 mg/dL Normal 0.00-1.30 [facility] Comment on above: Performed By: #### L 300.3900, L100.0100, L500.4050, L300.4310, L503.6005, M200.1000 ####[facility] [address] [place], [address] BUN/CRE 27.9 RATIO High 10-20 [facility] Comment on above: Performed By: #### L 300.3900, L100.0100, L500.4050, L300.4310, L503.6005, M200.1000 ####[facility] [address] [place] [place], [address] Calcium [Mass/Vol] 9.4 mg/dL Normal 7.6-11.0 [facility] Comment on above: Performed By: #### L 300.3900, L100.0100, L500.4050, L300.4310, L503.6005, M200.1000 ####[facility] [address] [place], [address] Chloride [Moles/Vol] 96 mmol/L Low 98-108 [facility] Comment on above: Performed By: #### L 300.3900, L100.0100, L500.4050, L300.4310, L503.6005, M200.1000 ####[facility] [address] [place], [address] CO2 [Moles/Vol] 34.4 mmol/L High 21.0-32.0 [facility] Comment on above: Performed By: #### L 300.3900, L100.0100, L500.4050, L300.4310, L503.6005, M200.1000 ####[facility] [address] [place], [address] Creatinine [Mass/Vol] 0.55 mg/dL Low 0.70-1.20 [facility] Comment on above: Performed By: #### L 300.3900, L100.0100, L500.4050, L300.4310, L503.6005, M200.1000 ####[facility] [address] [place], [address] ECRCL 87.97 ml/min Normal 50-250 [facility] Comment on above: Performed By: #### L 300.3900, L100.0100, L500.4050, L300.4310, L503.6005, M200.1000 ####[facility] [address] [place], [address] GAP 11 Normal 5-15 [facility] Comment on above: Performed By: #### L 300.3900, L100.0100, L500.4050, L300.4310, L503.6005, M200.1000 ####[facility] [address] [place], [address] GFR/1.73 sq M.predicted among non-blacks MDRD (S/P/Bld) [Vol rate/Area] 100 mL/min/{1.73_m2} Normal >60 [facility] Comment on above: Result Comment: mL/m in/1.73m2 CKD-EPI Creatinine Equation (2020) Performed By: #### L 300.3900, L100.0100, L500.4050, L300.4310, L503.6005, M200.1000 ####[facility] [address] [place], [address] Globulin (S) [Mass/Vol] 3.3 g/dL Normal 2.2-4.2 [facility] Comment on above: Performed By: #### L 300.3900, L100.0100, L500.4050, L300.4310, L503.6005, M200.1000 ####[facility] [address] [place], [address] Glucose [Mass/Vol] 116 mg/dL High 70-99 [facility] Comment on above: Performed By: #### L 300.3900, L100.0100, L500.4050, L300.4310, L503.6005, M200.1000 ####[facility] [address] [place], [address] Potassium [Moles/Vol] 3.6 mmol/L Normal 3.3-5.1 [facility] Comment on above: Performed By: #### L 300.3900, L100.0100, L500.4050, L300.4310, L503.6005, M200.1000 ####[facility] [address] [place], [address] Sodium [Moles/Vol] 142 mmol/L Normal 133-145 [facility] Comment on above: Performed By: #### L 300.3900, L100.0100, L500.4050, L300.4310, L503.6005, M200.1000 ####[facility] [address] [place], [address] T PROT 7.2 g/dL Normal 5.9-8.4 [facility] Comment on above: Performed By: #### L 300.3900, L100.0100, L500.4050, L300.4310, L503.6005, M200.1000 ####[facility] [address] [place], [address] Urea nitrogen [Mass/Vol] 15 mg/dL Normal 4-19 [facility] Comment on above: Performed By: #### L 300.3900, L100.0100, L500.4050, L300.4310, L503.6005, M200.1000 ####[facility] [address] [place], [address] Echo Complete W/ Contraston 02-19-2025 Echo Complete W/ Contrast [facility] [address] [place] [address] Echo Complete W/ Contrast 02/20/25 1104 MR#: [id number] Acct: [id number] Name: LISA LUCERO Rep #: [id number] : 1955 69 From: Mercy Purvis MD [...] Date Dictated: 02/20/25 1104 Date Transcribed: 02/20/25 115 Piano Case Maker: Signed Normal [facility] Emergency Department Summary on 02-19-2025 Emergency Department Summary [facility] Medical Records Department [address] [place] [address] Emergency Department Summary 02/19/25 MR#: [id number] Acct: [id number] Name: LISA LUCERO Rep #: [id number] : 1955 69 From: Linwood Ivy DO PCP: Dr. Phuc Martines DO Status:ADM IN Location: [place] [id number] Linwood Ivy DO on [...] cc: Dr. Phuc Martines DO * Signed HPI History of Present Illness [...] not coughing up significant mount of phlegm. [facility] Medical History COPD (chronic obstructive pulmonary disease) [...] PRN dry 0 02/19/25 Unknown History aerosol ([place] Saline) nasal passages triamcinolone acetonide 0.5 % [...] follow commands and that she was at [facility] year is 2024 Skin: Warm, dry, intact no rashes or lesions noted Const Vital Signs: 02/19/25 12:52 02/19/25 13:11 02/19/25 13:13 Temperature 99.2 F H Temperature Source Oral Pulse Rate 116 H Respiratory Rate 20 H Respiratory Effort Short of Breath Respiratory Pattern Blood Pressure 120/106 H (more content not included)... Normal [facility] Epithelial cells.squamous LM Ql (Urine sed)Ordered By: Linwood Ivy on 02-19-2025 Epithelial cells.squamous LM.HPF (Urine sed) [#/Area] 0 /[HPF] 5-10 [facility] Glucose Ql (U)Ordered By: Fernandez Ivy on 02-19-2025 Urine Glucose (UA) Normal mg/dl Normal [facility] H AND P Exam - Hospitaliston 02-19-2025 H&P Exam - Hospitalist [facility] Medical Records Department [address] [place] [address] H P Exam - Hospitalist 02/19/25 1548 MR#: [id number] Acct: [id number] Name: LISA LUCERO Rep #: [id number] : 1955 69 From: Kym Norton MD PCP: Dr. Phuc Martines, DO Status:ADM IN [facility] - General General Date of Admission: 02/19/25 Date of Service: 02/19/25 Chief Complaint: Increase shortness of breath and lower extremity swelling HPI Narrative LISA LUCERO, is a 69-year-old female with a history of COPD on 3 L nasal cannula and hypertension who presented to [facility] ED 02/19/2025 with increased shortness of breath [...] not note any history of withdrawal symptoms. COUNTS INCLUDE 234 BEDS AT [facility] Medical History COPD (chronic obstructive pulmonary [...] PRN dry 0 02/19/25 Unknown History aerosol ([place] Saline) nasal passages triamcinolone acetonide 0.5 % [...] any numbness/tingling (more content not included)... Normal [facility] Influenza virus A and B and SARS-CoV-2 (COVID-19) and Respiratory syncytial virus RNAOrdered By: Linwood Ivy on 02-19-2025 SARS-CoV-2 (COVID-19) RNA RENETTA+probe Ql (Unsp spec) [facility] International normalized rat io (INR) calculationOrdered By: Linwood Ivy on 02-19-2025 INR Coag (Bld) [Relative time] 1.0 {INR} [facility] Ketones Test strip Ql (U)Ord ered By: Linwood Ivy on 02-19-2025 Ketones Ql (U) Negative Negative [facility] L499.0042on 02-19-2025 Trop T High Sen < 6 Normal <=14 [facility] Comment on above: Performed By: #### L 500.4050, L500.4100, L100.0500, L501.9520 #### [facility] [address] [place], [place], [address] L499.0043on 02-19-2025 Trop T High Sen < 6 Normal <=14 [facility] Comment on above: Performed By: #### L 300.3900, L100.0100, L500.4050, L300.4310, L503.6005, M200.1000 #### [facility] [address] [place], [address] L501.4021on 02-19-2025 Trop T High Sen < 6 Normal <=14 [facility] Comment on above: Performed By: #### L 500.4050, L500.4100, L100.0500, L501.9520 #### [facility] [address] [place], [address] L503.7505on 02-19-2025 Natriuretic peptide B (Bld) [Mass/Vol] 529 pg/mL Normal <=900 [facility] Comment on above: Result Comment: Hear t Failure Unlikely: < 300 pg/mL Heart Failure Likely < 50 Years: > 450 pg/mL 50-75 Years: > 900 pg/mL >75 Years: > 1800 pg/mL Performed By: #### L 500.4050, L500.4100, L100.0500, L501.9520 #### [facility] [address] [place], [address] Lactic Acidon 02-19-2025 Lactate [Moles/Vol] 1.5 mmol/L Normal 0.0-2.[address] [facility] Comment on above: Order Comment: Y Performed By: #### L 300.3900, L100.0100, L500.4050, L300.4310, L503.6005, M200.1000 ####[facility] [address] [place], [address] Lactic acid measurementOrder ed By: Linwood Ivy on 02-19-2025 Lactate [Moles/Vol] 1.5 mmol/L 0.0-2.[address] [facility] M100.678on 02-19-2025 M100.678 Pending SARS-CoV-2 (COVID 19) Negative INFLUENZA A Negative INFLUENZA B Negative RSV PCR Negative Normal [facility] Comment on above: Performed By: #### L 500.4050, L500.4100, L100.0500, L501.9520 #### [facility] [address] [place], [place], [address] Microscopic analysis of urin e for red blood cells (RBC)Ordered By: Linwood Ivy on 02-19-2025 Microscopic analysis of urine for red blood cells (RBC) 0 SEEN /hpf 0-5 [facility] Urine RBC 0 SEEN /hpf 0-5 [facility] Mucus LM Ql (Urine sed)Order ed By: Linwood Ivy on 02-19-2025 Mucus Ql (Urine sed) 0 SEEN /hpf [facility] Natriuretic peptide.B prohor gonzalo N-Terminal [Mass/Vol]Ordered By: Linwood Ivy on 02-19-2025 Natriuretic peptide B (Bld) [Mass/Vol] 529 pg/mL <900 [facility] Comment on above: Heart Failure Unlike ly: < 300 pg/mLHeart Failure Likely< 50 Years: > 450 pg/mL50-75 Years: > 900 pg/mL>75 Years: > 1800 pg/mL Natriuretic peptide.B prohor gonzalo N-Terminal [Mass/volume] in Serum or PlasmaOrdered By: Linwood Ivy on 02-19-2025 Natriuretic peptide.B prohormone N-Terminal [Mass/Vol] 529 pg/mL <900 [facility] Comment on above: Heart Failure Unlike ly: < 300 pg/mLHeart Failure Likely< 50 Years: > 450 pg/mL50-75 Years: > 900 pg/mL>75 Years: > 1800 pg/mL Nitrite Test strip Ql (U)Ord ered By: Linwodo Ivy on 02-19-2025 Nitrite Ql (U) Negative Negative [facility] Partial Thromboplast Timeon 02-19-2025 aPTT Coag (Bld) [Time] 27.1 s Normal 24.1-36.2 [facility] Comment on above: Performed By: #### L 300.3900, L100.0100, L500.4050, L300.4310, L503.6005, M200.1000 #### [facility] [address] [place], [place], [address] Protein Test strip Ql (U)Ord ered By: Linwood Ivy on 02-19-2025 Protein Ql (U) Negative Negative [facility] Prothrombin Time w/INRon INR Coag (PPP) [Relative time] 1.0 {INR} Normal [facility] Comment on above: Performed By: #### L 300.3900, L100.0100, L500.4050, L300.4310, L503.6005, M200.1000 #### [facility] [address] [place], [address] PT Coag (PPP) [Time] 13.4 s Normal 11.7-14.9 [facility] Comment on above: Performed By: #### L 300.3900, L100.0100, L500.4050, L300.4310, L503.6005, M200.1000 #### [facility] [address] [place], [place], [id number] Prothrombin timeOrdered By: Linwood Ivy on 02-19-2025 PT Coag (PPP) [Time] 13.4 s 11.7-14.9 [facility] Squamous epithelial cells de tection in urine sediment by light microscopyOrdered By: Linwood Ivy on 02-19-2025 Epithelial cells.squamous LM Ql (Urine sed) 0-5 SEEN /hpf 5-10 [facility] Troponin T.cardiac High sens itivity method [Mass/Vol]Ordered By: Linwood Ivy on 02-19-2025 Troponin T High Sensitivity 4 Hour < 6 ng/L <14 [facility] Troponin T High Sensitivity 2 Hour < 6 ng/L <14 [facility] Troponin T High Sensitivity < 6 ng/L <14 [facility] Troponin T.cardiac [Mass/vol ume] in Serum or Plasma by High sensitivity methodOrdered By: Linwood Ivy on 02-19-2025 Troponin T.cardiac High sensitivity method [Mass/Vol] < 6 ng/L <14 [facility] Troponin T.cardiac High sensitivity method [Mass/Vol] < 6 ng/L <14 [facility] Troponin T.cardiac High sensitivity method [Mass/Vol] < 6 ng/L <14 [facility] Urinalysis, Completeon 02-19 EPI,SQUAMOUS 0-5 SEEN Normal 5-10 [facility] Comment on above: Order Comment: CLEAN CATCH Performed By: #### L 500.4050, L500.4100, L100.0500, L501.9520 #### [facility] [address] [place], [address] WBC 0-5 SEEN Normal 0-5 [facility] Comment on above: Order Comment: CLEAN CATCH Performed By: #### L 500.4050, L500.4100, L100.0500, L501.9520 #### [facility] [address] [place], [address] BACTERIA 0 SEEN Normal None Seen [facility] Comment on above: Order Comment: CLEAN CATCH Performed By: #### L 500.4050, L500.4100, L100.0500, L501.9520 #### [facility] [address] [place], [address] Mucus Ql (Urine sed) 0 SEEN Normal [facility] Comment on above: Order Comment: CLEAN CATCH Performed By: #### L 500.4050, L500.4100, L100.0500, L501.9520 #### [facility] [address] [place], [address] RBC 0 SEEN Normal 0-5 [facility] Comment on above: Order Comment: CLEAN CATCH Performed By: #### L 500.4050, L500.4100, L100.0500, L501.9520 #### [facility] [address] [place], [address] Urine blood detectionOrdered By: Linwood Ivy on 02-19-2025 Urine Occult Blood Negative Negative [facility] Urine clarityOrdered By: Melissa Ivy on 02-19-2025 Clarity (U) Clear Clear [facility] Urine color determinationOrd ered By: Linwood Ivy on 02-19-2025 Color (U) Straw Yellow [facility] Urine cultureOrdered By: Melissa Ivy on 02-19-2025 Bacteria identified Cx Nom (U) Mixed Gram Pos & Gram Neg Org Abnormal [facility] Urine glucose detectionOrder ed By: Linwood Ivy on 02-19-2025 Glucose Ql (U) Normal mg/dl Normal [facility] Urine leukocyte esterase det ection by dipstickOrdered By: Linwood Ivy on 02-19-2025 Leukocyte esterase Test strip Ql (U) 25 /ul High Negative [facility] Urine pHOrdered By: Linwood cole on 02-19-2025 pH (U) 6.0 [pH] 5.0 - 8.0 [facility] Urine sediment bacteria coun t by microscopy (number/high power field)Ordered By: Linwood Ivy on 02-19-2025 Bacteria LM.HPF (Urine sed) [#/Area] 0 /[HPF] None Seen [facility] Urine specific gravity measu rementOrdered By: Linwood Ivy on 02-19-2025 Specific gravity (U) [Rel density] 1.010 1.002-1.03 0 [facility] Urine urobilinogen measureme ntOrdered By: Linwood Ivy on 02-19-2025 Urobilinogen Ql (U) Normal mg/dl Normal [facility] Urobilinogen Ql (U)Ordered B y: Linwood Ivy on 02-19-2025 Urine Urobilinogen Normal mg/dl Normal [facility] White blood cell countOrdere d By: Linwood Ivy on 02-19-2025 Urine WBC 0-5 SEEN /hpf 0-5 [facility] White blood cell count 0-5 SEEN /hpf 0-5 [facility] aPTT Coag (PPP) [Time]Ordere d By: Linwood Ivy on 02-19-2025 aPTT Coag (Bld) [Time] 27.1 s 24.1-36.2 [facility] CNOVon 01-25-2025 CNOV Office Visit (PULMWS ) LISA LUCERO ([id number]) 1955 F Date Time Provider Department 01/25/25 11:00 AM MARICRUZ CAMP During your visit today, we recorded the following information about you: Pulse Blood pressure Weight Height 88/minute 131/76 120.4 kg 1.626 m Maricruz Camp APRN.CNP 01/25/2025 12:28 PM Signed Chief Complaint: 3 [...] activities of daily living. Modified Medical Research [place] Dyspnea Scale (MMRC) On level ground I [...] disease) (HCC) 02/03/2010 Coronary artery disease No SD, CHF. No heart cath. Diverticulosis of colon [...] to 08/29/2022. Prior PFTS: SPIROMETRY BASELINE ONLY ([id number]) - ordered on 03/16/22 No textual results for order. SPIROMETRY BASELINE ONLY ([id number]) - ordered on 03/31/20 [facility] [address] [place] [address] Test Date: (more content not included)... Normal [facility] CT LUNG FOLLOWUP IVCONon 01-25-2025 CT LUNG FOLLOWUP IVCON * * *Final Report* * * DATE OF EXAM: Jan 25 2025 11:06AM [facility] 0561 - CT LUNG FOLLOWUP WO IVCON / PROCEDURE REASON: Lung nodule, < 6mm, high cancer risk * * * * Physician Interpretation * * * * EXAMINATION: CT LUNG FOLLOWUP WO IVCON CLINICAL HISTORY: Lung nodules Technique: Spiral CT acquisition of the chest from the thoracic inlet to the upper abdomen without contrast. MQ: CTLCS_6 Followup LDCT Patient characteristics: * Gyru-su-Lxhjv: 1955; Age at exam: 69 years * Gender: Female * Lung Disease: Asymptomatic (no signs or symptoms of lung disease) * Number of Pack Years: 38 * Current smoker (=0) or Number of Years since Quit: 15 * Ordering provider and NPI: MARICRUZ CAMP [id number] * Interpreting radiologist and NPI: Nicole [id number] Exam acquisition parameters: * Exam Date: 01/25/2025 11:06 AM * Site: [facility] * * CT System Distribution Center Administrator: Siemens * CT System Model: Sensation * [...] Recommendations: Followup LDCT in 6 months Reference: [employer]. Lung CT Screening Reporting and Data System (Lung-RADS). Available at: http://www.acr.org/Quality-Sa fety/Resources/LungRADS Piano Case Maker: PAT Transcribe Date/Time: Jan 25 2025 11:45A Dictated by : VIDAL PULLIAM MD This examination was interpreted and the report reviewed and electronically signed by: VIDAL PULLIAM MD on Jan 25 2025 11:51AM EST [id number] Normal [facility] CT Lung parenchyma WO contra ston 01-25-2025 IMPRESSION: LungRADS category: 3 LungRADS modifier: None LungRADS 0 reason: n/a Recommendations: Followup LDCT in 6 months Reference: [employer]. Lung CT Screening Reporting and Data System (Lung-RADS). Available at: http://www.acr.org/Quality-Sa fety/Resources/LungRADS Piano Case Maker: PAT Transcribe Date/Time: Jan 25 2025 11:45A Dictated by : VIDAL PULLIAM MD This examination was interpreted and the report reviewed and electronically signed by: VIDAL PULLIAM MD on Jan 25 2025 11:51AM [facility] DIVISION OF RADIOLOGY * * *Final Report* * * DATE OF EXAM: Jan 25 2025 11:06AM [facility] 0561 - CT LUNG FOLLOWUP [facility] / PROCEDURE REASON: Lung nodule, < 6mm, high cancer risk * * * * Physician Interpretation * * * * EXAMINATION: CT LUNG FOLLOWUP WO ASHER CLINICAL HISTORY: Lung nodules Technique: Spiral CT acquisition of the chest from the thoracic inlet to the upper abdomen without contrast. MQ: CTLCS_6 Followup LDCT Patient characteristics: * Aqjf-qk-Oiqps: 1955; Age at exam: 69 years * Gender: Female * Lung Disease: Asymptomatic (no signs or symptoms of lung disease) * Number of Pack Years: 38 * Current smoker (=0) or Number of Years since Quit: 15 * Ordering provider and NPI: MARICRUZ CAMP [id number] * Interpreting radiologist and NPI: Nicole [id number] Exam acquisition parameters: * Exam Date: 01/25/2025 11:06 AM * Site: [facility] * * CT System Distribution Center Administrator: Dealdrive * CT System Model: Sensation * Tube [...] opacities likely atelectasis. DIVISION OF RADIOLOGY Provider, [facility] - 01/25/2025 * * *Final Report* * * DATE OF EXAM: Jan 25 2025 11:06AM [facility] 0561 - CT LUNG FOLLOWUP [facility] / PROCEDURE REASON: Lung nodule, < 6mm, high cancer risk * * * * Physician Interpretation * * * * EXAMINATION: CT LUNG FOLLOWUP [facility] CLINICAL HISTORY: Lung nodules Technique: Spiral CT acquisition of the chest from the thoracic inlet to the upper abdomen without contrast. MQ: CTLCS_6 Followup LDCT Patient characteristics: * Nlxl-pa-Wqykh: 1955; Age at exam: 69 years * Gender: Female * Lung Disease: Asymptomatic (no signs or symptoms of lung disease) * Number of Pack Years: 38 * Current smoker (=0) or Number of Years since Quit: 15 * Ordering provider and NPI: MARICRUZ CAMP [id number] * Interpreting radiologist and NPI: Nicole [id number] Exam acquisition parameters: * Exam Date: 01/25/2025 11:06 AM * Site: [facility] * * CT System Distribution Center Administrator: Dealdrive * CT System Model: Sensation * Tube [...] Recommendations: Followup LDCT in 6 months Reference: [employer]. Lung CT Screening Reporting and Data System (Lung-RADS). Available at: http://www.acr.org/Quality-Sa fety/Resources/LungRADS Piano Case Maker: PAT Transcribe Date/Time: Jan 25 2025 11:45A Dictated by : VIDAL PULLIAM MD This examination was interpreted and the report reviewed and electronically signed by: VIDAL PULLIAM MD on Jan 25 2025 11:51AM EST [facility] Radiology Study observation (narrative) [facility] CT Lung parenchyma WO contra stOrdered By: Ccf Provider on 01-25-2025 [facility] CNOVon 01-20-2025 CNOV Office Visit (FAMPWS ) LISA LUCERO ([id number]) 1955 F Date Time Provider Department 01/20/25 3:00 PM [facility] MARTINES FAMPWS During your visit today, we recorded the following information about you: Temperature Pulse Respiration Blood pressure 97 degrees 72/minute 20/minute 138/70 Weight 119.7 kg Phuc Martines, DO 01/20/2025 8:54 PM Signed Lisa Lucero [...] is currently diet controlled 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 Feels she is coping okay. Has support from her children COPD oxygen dependent, stage 3., seeing Edi Programmer Analyst- recently had jaziel increased and feels this is helping her PAST MEDICAL HISTORY Diagnosis Date Chronic hypoxemic respiratory failure (HCC) COPD (chronic obstructive pulmonary disease) (HCC) 02/03/2010 Coronary artery disease No SD, CHF. No heart cath. Diverticulosis of colon [...] hours as needed for wheezing/shortness of breath. pxsafsribyr-ztrflwmfx-igxffhr r (TRELEGY ELLIPTA) 200-62.5-25 mcg inhalation powder [...] kit, including (more content not included)... Normal [facility] Folate SerPl-mCncon 01-21-20 25 Folate [Mass/Vol] 18.5 ng/mL Normal >4.7 [facility] Comment on above: Order Comment: Speci men Type: BLOOD SPECIMENOrdering Facility: [facility] Address: [address] [place] [address] Performed By: #### 2 132-9, 2284-8 ####[facility] [id number] [place] [address] [place] Iron and Iron binding capaci panel 01-20-2025 Iron [Mass/Vol] 92 ug/dL Normal 41-186 [facility] Comment on above: Order Comment: Speci men Type: BLOOD SPECIMENOrdering Facility: [facility] Address: [address] [place] [address] Performed By: #### 3 024-7, 3051-0, 44790-6, 3016-3 ####[facility]IA [id number] [place] [address] [place] Iron binding capacity [Mass/Vol] 403 ug/dL High 232-386 [facility] Comment on above: Order Comment: Speci men Type: BLOOD SPECIMENOrdering Facility: [facility] Address: [address] [place] [address] Performed By: #### 3 024-7, 3051-0, 70762-9, 6-3 ####[facility] LABCLIA [id number] [place] [address] [place] Iron/TIBC [Molar ratio] 22.8 % Normal 15.0-57.0 [facility] Comment on above: Order Comment: Speci men Type: BLOOD SPECIMENOrdering Facility: [facility] Address: [address] [place] [address] Performed By: #### 3 024-7, 305-0, 13442-6, 6-3 ####[facility] LABCLIA [id number] [place] [address] [place] T3Free SerPl-mCncon 01-21-20 25 Free T3 [Mass/Vol] 2.9 pg/mL Normal 2.3-4.1 [facility] Comment on above: Order Comment: Speci men Type: BLOOD SPECIMENOrdering Facility: [facility] Address: [address] [place] [address] Performed By: #### 3 024-7, 305-0, 57974-3, 6-3 ####[facility] [id number] [place] [address] [place] T4 Free SerPl-mCncon 025 Free T4 [Mass/Vol] 0.9 ng/dL Normal 0.9-1.7 [facility] Comment on above: Order Comment: Speci men Type: BLOOD SPECIMENOrdering Facility: [facility] Address: [address] [place] [address] Performed By: #### 3 024-7, 305-0, 02452-5, 6-3 ####[facility] [id number] [place] [address] [place] TSH SerPl-aCncon 01-20-2025 TSH Qn 2.860 m[IU]/L Normal 0.270-4.20 0 [facility] Comment on above: Order Comment: Speci men Type: BLOOD SPECIMENOrdering Facility: [facility] Address: [address] [place] [address] Performed By: #### 3 024-7, 3051-0, 26310-8, 3016-3 ####[facility] LABCLIA [id number] [place] [address] [place] Vit B12 [facility] Cobalamin (Vitamin B12) [Mass/Vol] 940 pg/mL Normal 232-1245 [facility] Comment on above: Order Comment: Speci men Type: BLOOD SPECIMENOrdering Facility: [facility] Address: [address] [place] [address] Performed By: #### 2 132-9, 2284-8 ####[facility]CLIA [id number] [place] [address] [place] CBC W Auto Differential pane l (Bld)on 01-13-2025 Basophils (Bld) [#/Vol] 0.06 10*3/uL Normal <0.11 [facility] Comment on above: Order Comment: Speci men Type: BLOOD SPECIMENOrdering Facility: [facility] Address: [address] [place] [address] Performed By: #### 5 7021-8 ####[facility]CLIA [id number] [place] [address] [place] Basophils/100 WBC (Bld) 0.8 % Normal [facility] Comment on above: Order Comment: Speci men Type: BLOOD SPECIMENOrdering Facility: [facility] Address: [address] [place] [address] Performed By: #### 5 7021-8 ####[facility]CLIA [id number] [place] [address] [place] Differential cell count method Nom (Bld) Auto Normal [facility] Comment on above: Order Comment: Speci men Type: BLOOD SPECIMENOrdering Facility: [facility] Address: [address] [place] [address] Performed By: #### 5 7021-8 ####[facility] LABCLIA [id number] [place] [address] [place] Eosinophils (Bld) [#/Vol] 0.20 10*3/uL Normal <0.46 [facility] Comment on above: Order Comment: Speci men Type: BLOOD SPECIMENOrdering Facility: [facility] Address: [address] [place] [address] Performed By: #### 5 7021-8 ####[facility]CLIA [id number] [place] [address] [place] Eosinophils/100 WBC (Bld) 2.6 % Normal [facility] Comment on above: Order Comment: Speci men Type: BLOOD SPECIMENOrdering Facility: [facility] Address: [address] [place] [address] Performed By: #### 5 7021-8 ####[facility] LABCLIA [id number] [place] [address] [place] Erythrocyte distribution width (RBC) [Ratio] 14.6 % Normal 11.5-15.0 [facility] Comment on above: Order Comment: Speci men Type: BLOOD SPECIMENOrdering Facility: [facility] Address: [address] [place] [address] Performed By: #### 5 7021-8 ####[facility] LABCLIA [id number] [place] [address] [place] Hematocrit (Bld) [Volume fraction] 46.5 % High 36.0-46.0 [facility] Comment on above: Order Comment: Speci men Type: BLOOD SPECIMENOrdering Facility: [facility] Address: [address] [place] [address] Performed By: #### 5 7021-8 ####[facility] LABCLIA [id number] [place] [address] [place] Hemoglobin (Bld) [Mass/Vol] 14.3 g/dL Normal 11.5-15.5 [facility] Comment on above: Order Comment: Speci men Type: BLOOD SPECIMENOrdering Facility: [facility] Address: [address] [place] [address] Performed By: #### 5 7021-8 ####[facility]CLIA [id number] [place] [address] [place] Immature granulocytes (Bld) [#/Vol] 10*3/uL Normal <0.10 [facility] Comment on above: Order Comment: Speci men Type: BLOOD SPECIMENOrdering Facility: [facility] Address: [address] [place] [address] Performed By: #### 5 7021-8 ####[facility] LABCLIA [id number] [place] [address] [place] Immature granulocytes/100 WBC (Bld) 0.1 % Normal [facility] Comment on above: Order Comment: Speci men Type: BLOOD SPECIMENOrdering Facility: [facility] Address: [address] [place] [address] Performed By: #### 5 7021-8 ####[facility]CLIA [id number] [place] [address] [place] Lymphocytes (Bld) [#/Vol] 1.28 10*3/uL Normal 1.00-4.00 [facility] Comment on above: Order Comment: Speci men Type: BLOOD SPECIMENOrdering Facility: [facility] Address: [address] [place] [address] Performed By: #### 5 7021-8 ####[facility] LABCLIA [id number] [place] [address] [place] Lymphocytes/100 WBC (Bld) 16.9 % Normal [facility] Comment on above: Order Comment: Speci men Type: BLOOD SPECIMENOrdering Facility: [facility] Address: [address] [place] [address] Performed By: #### 5 7021-8 ####[facility] LABCLIA [id number] [place] [address] [place] MCH (RBC) [Entitic mass] 30.6 pg Normal 26.0-34.0 [facility] Comment on above: Order Comment: Speci men Type: BLOOD SPECIMENOrdering Facility: [facility] Address: [address] [place] [address] Performed By: #### 5 7021-8 ####[facility] LABCLIA [id number] [place] [address] [place] MCHC (RBC) [Mass/Vol] 30.8 g/dL Normal 30.5-36.0 [facility] Comment on above: Order Comment: Speci men Type: BLOOD SPECIMENOrdering Facility: [facility] Address: [address] [place] [address] Performed By: #### 5 7021-8 ####[facility] LABCLIA [id number] [place] [address] [place] MCV (RBC) [Entitic vol] 99.4 fL Normal 80.0-100.0 [facility] Comment on above: Order Comment: Speci men Type: BLOOD SPECIMENOrdering Facility: [facility] Address: [address] [place] [address] Performed By: #### 5 7021-8 ####[facility] LABCLIA [id number] [place] [id number] [place] Monocytes (Bld) [#/Vol] 0.75 10*3/uL Normal <0.87 [facility] Comment on above: Order Comment: Speci men Type: BLOOD SPECIMENOrdering Facility: [facility] Address: [address] [place] [address] Performed By: #### 5 7021-8 ####[facility] LABCLIA [id number] [place] [address] [place] Monocytes/100 WBC (Bld) 9.9 % Normal [facility] Comment on above: Order Comment: Speci men Type: BLOOD SPECIMENOrdering Facility: [facility] Address: [address] [place] [address] Performed By: #### 5 7021-8 ####[facility] LABCLIA [id number] [place] [address] [place] Neutrophils (Bld) [#/Vol] 5.27 10*3/uL Normal 1.45-7.50 [facility] Comment on above: Order Comment: Speci men Type: BLOOD SPECIMENOrdering Facility: [facility] Address: [address] [place] [address] Performed By: #### 5 7021-8 ####[facility] LABCLIA [id number] [place] [address] [place] Neutrophils/100 WBC (Bld) 69.7 % Normal [facility] Comment on above: Order Comment: Speci men Type: BLOOD SPECIMENOrdering Facility: [facility] Address: [address] [place] [address] Performed By: #### 5 7021-8 ####[facility] LABCLIA [id number] [place] [address] [place] Nucleated RBC (Bld) [#/Vol] 10*3/uL Normal <0.01 [facility] Comment on above: Order Comment: Speci men Type: BLOOD SPECIMENOrdering Facility: [facility] Address: [address] [place] [address] Performed By: #### 5 7021-8 ####[facility] LABCLIA [id number] [place] [address] [place] Nucleated RBC/100 WBC (Bld) [Ratio] 0.0 /100 WBC Normal [facility] Comment on above: Order Comment: Speci men Type: BLOOD SPECIMENOrdering Facility: [facility] Address: [address] [place] [address] Performed By: #### 5 7021-8 ####[facility] LABIA [id number] [address] [address] [place] Platelet mean volume (Bld) [Entitic vol] 11.6 fL Normal 9.0-12.7 [facility] Comment on above: Order Comment: Speci men Type: BLOOD SPECIMENOrdering Facility: [facility] Address: [address] [place] [address] Performed By: #### 5 7021-8 ####[facility]IA [id number] [place] [address] [place] Platelets (Bld) [#/Vol] 266 10*3/uL Normal 150-400 [facility] Comment on above: Order Comment: Speci men Type: BLOOD SPECIMENOrdering Facility: [facility] Address: [address] [place] [address] Performed By: #### 5 7021-8 ####[facility]IA [id number] [place] [address] [place] RBC (Bld) [#/Vol] 4.68 10*6/uL Normal 3.90-5.20 [facility] Comment on above: Order Comment: Speci men Type: BLOOD SPECIMENOrdering Facility: [facility] Address: [address] [place] [address] Performed By: #### 5 7021-8 ####[facility] LABIA [id number] [address] [address] [place] WBC (Bld) [#/Vol] 7.57 10*3/uL Normal 3.70-11.00 [facility] Comment on above: Order Comment: Speci men Type: BLOOD SPECIMENOrdering Facility: [facility] Address: [address] [place] [address] Performed By: #### 5 7021-8 ####[facility] LABCLIA [id number] [address] [address] [place] Comprehensive metabolic 2000 panelon 01-13-2025 Albumin [Mass/Vol] 4.6 g/dL Normal 3.9-4.9 [facility] Comment on above: Order Comment: Speci men Type: BLOOD SPECIMENOrdering Facility: [facility] Address: [address] [place] [address] Performed By: #### 2 4331-1, ####[facility] LABCLIA [id number] [place] [id number] [place] ALP [Catalytic activity/Vol] 77 U/L Normal 34-123 [facility] Comment on above: Order Comment: Speci men Type: BLOOD SPECIMENOrdering Facility: [facility] Address: [address] [place] [address] Performed By: #### 2 4331-1, 33617-8 ####[facility]IA [id number] [place] [id number] [place] ALT [Catalytic activity/Vol] 27 U/L Normal 7-38 [facility] Comment on above: Order Comment: Speci men Type: BLOOD SPECIMENOrdering Facility: [facility] Address: [address] [place], [place] [address] Performed By: #### 2 4331-1, 12063-2 ####[facility] [facility] LABCLIA [id number] [address] [address] [place] Anion gap [Moles/Vol] 12 mmol/L Normal 8-15 [facility] Comment on above: Order Comment: Speci men Type: BLOOD SPECIMENOrdering Facility: [facility] Address: [address] [place], [place] [address] Performed By: #### 2 4331-1, 69214-0 ####[facility] LABCLIA [id number] [address] [address] [place] AST [Catalytic activity/Vol] 24 U/L Normal 13-35 [facility] Comment on above: Order Comment: Speci men Type: BLOOD SPECIMENOrdering Facility: [facility] Address: [address] [place] [address] Performed By: #### 2 4331-1, 97423-2 ####[facility] LABCLIA [id number] [place] [id number] [place] Bilirubin [Mass/Vol] 0.6 mg/dL Normal 0.2-1.3 [facility] Comment on above: Order Comment: Speci men Type: BLOOD SPECIMENOrdering Facility: [facility] Address: [address] [place] [address] Performed By: #### 2 4331-1, 37425-7 ####[facility] LABCLIA [id number] [place] [address] [place] Calcium [Mass/Vol] 10.0 mg/dL Normal 8.5-10.2 [facility] Comment on above: Order Comment: Speci men Type: BLOOD SPECIMENOrdering Facility: [facility] Address: [address] [place] [address] Performed By: #### 2 4331-1, 87109-3 ####[facility] LABCLIA [id number] [place] [id number] [place] Chloride [Moles/Vol] 94 mmol/L Low 98-107 [facility] Comment on above: Order Comment: Speci men Type: BLOOD SPECIMENOrdering Facility: [facility] Address: [address] [place] [address] Performed By: #### 2 4331-1, 35985-9 ####[facility] LABCLIA [id number] [address] [address] [place] CO2 [Moles/Vol] 37 mmol/L High 22-30 [facility] Comment on above: Order Comment: Speci men Type: BLOOD SPECIMENOrdering Facility: [facility] Address: [address] [place] [address] Performed By: #### 2 4331-1, ####[facility] LABCLIA [id number] [address] [address] [place] Creatinine [Mass/Vol] 0.56 mg/dL Low 0.58-0.96 [facility] Comment on above: Order Comment: Speci men Type: BLOOD SPECIMENOrdering Facility: [facility] Address: [address] [place] [address] Performed By: #### 2 4331-, ####[facility] LABIA [id number] [place] [address] [place] Creatinine and Glomerular filtration rate.predicted panel (S/P/Bld) 100 mL/min/1.73m??? Normal >=60 [facility] Comment on above: Order Comment: Speci men Type: BLOOD SPECIMENOrdering Facility: [facility] Address: [address] [place] [address] Result Comment: Marcia mated Glomerular Filtration Rate [...] accurately reflect actual GFR. Performed By: #### 2 4331-1, ####[facility] LABIA [id number] [place] [address] [place] Glucose [Mass/Vol] 112 mg/dL High 74-99 [facility] Comment on above: Order Comment: Speci men Type: BLOOD SPECIMENOrdering Facility: [facility] Address: [address] [place] [address] Result Comment: The [place] Diabetes Association (ADA) provides guidance for cutoff [...] Standards of Medical Care in Diabetes 2016, [place] [employer] Association. Diabetes Care. 2016.39(Suppl 1). Performed By: #### 2 4331-, ####[facility] LABCLIA [id number] [place] [address] [place] Potassium [Moles/Vol] 4.3 mmol/L Normal 3.7-5.1 [facility] Comment on above: Order Comment: Speci men Type: BLOOD SPECIMENOrdering Facility: [facility] Address: [address] [place] [address] Performed By: #### 2 433-, ####[facility] LABCLIA [id number] [place] [address] [place] Protein [Mass/Vol] 7.7 g/dL Normal 6.3-8.0 [facility] Comment on above: Order Comment: Speci men Type: BLOOD SPECIMENOrdering Facility: [facility] Address: [address] [place] [address] Performed By: #### 2 433-, ####[facility] LABCLIA [id number] [place] [address] [place] Sodium [Moles/Vol] 143 mmol/L Normal 136-144 [facility] Comment on above: Order Comment: Speci men Type: BLOOD SPECIMENOrdering Facility: [facility] Address: [address] [place] [address] Performed By: #### 2 4331-1, ####[facility] LABCLIA [id number] [address] [address] [place] Urea nitrogen [Mass/Vol] 12 mg/dL Normal 7-21 [facility] Comment on above: Order Comment: Xiao cook Type: BLOOD SPECIMENOrdering Facility: [facility] Address: [address] [place] [address] Performed By: #### 2 4331-1, 15091-8 ####[facility] LABIA [id number] [address] [address] [place] HbA1c (Bld)on 01-13-2025 Average glucose Estimated from glycated hemoglobin (Bld) [Mass/Vol] 114 mg/dL Normal [facility] Comment on above: Order Comment: Xiao cook Type: BLOOD SPECIMENOrdering Facility: [facility] Address: [address] [place] [address] Result Comment: eAG: (Estimated average glucose) is a calculated value from HgbA1c and is human resources hr representative of the average blood glucose level in the last 2-3 month period. Performed By: #### 5 5454-3 ####[facility] LABIA [id number] [address] [address] [place] [facility] HbA1c (Bld) [Mass fraction] 5.6 % Normal 4.3-5.6 [facility] Comment on above: Order Comment: Xiao cook Type: BLOOD SPECIMENOrdering Facility: [facility] Address: [address] [place] [address] Result Comment: [place] Diabetes Association guidelines indicate that patients with HgbA1c in the range 5.7-6.4% are at increased risk for development of diabetes, and intervention by lifestyle modification may be beneficial. HgbA1c greater or equal to 6.5% is considered diagnostic of diabetes. Performed By: #### 5 5454-3 ####[facility] LABCLIA [id number] [address] [address] [place] Lipid 1996 panelon 03-19-202 5 Cholesterol [Mass/Vol] 233 mg/dL High <200 [facility] Comment on above: Order Comment: Speci men Type: BLOOD SPECIMENOrdering Facility: [facility] Address: [address] [place] [address] Result Comment: <200 mg/dL, Desirable 200-239 mg/dL, Borderline high >239 mg/dL, High Performed By: #### 2 4331-1, 73229-4 ####[facility] LABCLIA [id number] [id number] [address] [place] Cholesterol in HDL [Mass/Vol] 91 mg/dL Normal >39 [facility] Comment on above: Order Comment: Speci men Type: BLOOD SPECIMENOrdering Facility: [facility] Address: [address] [place] [address] Result Comment: 40-5 9 mg/dL, Acceptable >59 mg/dL, High: Negative risk factor for coronary heart disease <40 mg/dL, Low: Positive risk factor for coronary heart disease Performed By: #### 2 4331-1, 73079-3 ####[facility] LABCLIA [id number] [address] [facility] [id number] [address] [place] Cholesterol in LDL [Mass/Vol] 128 mg/dL High <100 [facility] Comment on above: Order Comment: Speci men Type: BLOOD SPECIMENOrdering Facility: [facility] Address: [address] [place] [address] Result Comment: <100 mg/dL, Optimal 100-129 mg/dL, Near optimal/above optimal 130-159 mg/dL, Borderline high 160-189 mg/dL, High >189 mg/dL, Very high Secondary prevention optimal LDL Cholesterol levels are recommended to be < 70 mg/dL Performed By: #### 2 4331-1, 03341-6 ####[facility] LABCLIA [id number] [address] [id number], [place] [address] [place] Cholesterol in LDL/Cholesterol in HDL [Mass ratio] 1.41 {ratio} Normal <2.54 [facility] Comment on above: Order Comment: Speci men Type: BLOOD SPECIMENOrdering Facility: [facility] Address: [address] [place] [address] Result Comment: Black novoa: 1. National Cholesterol Education Program ATP III Guideline At-A-Glance Quick Desk Reference: National Heart, Lung, and Blood [place]. National Institutes of Health. 2001: NIH Publication No. 01-3305. 2. An International Atherosclerosis Society position paper: global recommendations for the management of dyslipidemia: executive summary, Atherosclerosis. 2014: 232(2):410-413. Performed By: #### 2 4331-1, 86686-8 ####[facility] LABIA [id number] [place] [address] [place] Cholesterol in VLDL [Mass/Vol] 14 mg/dL Normal <30 [facility] Comment on above: Order Comment: Saniyakurt cook Type: BLOOD SPECIMENOrdering Facility: [facility] Address: [address] [place] [address] Performed By: #### 2 4331-1, 88641-9 ####[facility] LABIA [id number] [place] [address] [place] Cholesterol non HDL [Mass/Vol] 142 mg/dL High <130 [facility] Comment on above: Order Comment: Xiao cook Type: BLOOD SPECIMENOrdering Facility: [facility] Address: [address] [place] [address] Result Comment: <130 mg/dL, Optimal 130-159 mg/dL, Near optimal/above optimal 160-189 mg/dL, Borderline high 190-219 mg/dL, High >219 mg/dL, Very high Secondary prevention optimal non HDL Cholesterol levels are recommended to be <100 mg/dL Performed By: #### 2 4331-1, 40521-9 ####[facility] LABIA [id number] [address] [address] [place] Cholesterol.total/Cho lesterol in HDL [Mass ratio] 2.56 {ratio} Normal <5.10 [facility] Comment on above: Order Comment: Saniyai men Type: BLOOD SPECIMENOrdering Facility: [facility] Address: [address] [place] [address] Performed By: #### 2 4331-1, 33404-4 ####[facility] LABCLIA [id number] [place] [address] [place] FASTING TIME 12 hrs Normal [facility] Comment on above: Order Comment: Speci men Type: BLOOD SPECIMENOrdering Facility: [facility] Address: [address] [place] [address] Performed By: #### 2 4331-1, ####[facility] LABCLIA [id number] [place] [address] [place] Triglyceride [Mass/Vol] 72 mg/dL Normal <150 [facility] Comment on above: Order Comment: Speci men Type: BLOOD SPECIMENOrdering Facility: [facility] Address: [address] [place] [address] Result Comment: <150 mg/dL, Normal 150-199 mg/dL, Borderline high 200-499 mg/dL, High >499 mg/dL, Very high Performed By: #### 2 4331-1, ####[facility] LABCLIA [id number] [place] [address] [place] CNOVon 12-25-2024 CNOV Office Visit (PULMWS ) LISA LUCERO ([id number]) 1955 F Date Time Provider Department 12/25/24 11:30 AM LISA GOODMAN PULDeoWS During your visit today, we recorded the following information about you: Pulse Respiration Blood pressure Weight 92/minute 20/minute 134/64 119.1 kg Lisa Goodman, ACCURACY EXPERT.NEWSSTAND VENDOR 12/25/2024 12:29 PM Signed Pulmonary Medicine Patients name: Lisa Palumbo PCP: Phuc Martines DO CC: follow-up COPD HPI: Lisa Lucero is a 69 year old female former 38-vubf-ohxj smoker, quitting in 2008 with PMH significant [...] disease) (HCC) 02/03/2010 Coronary artery disease No SD, CHF. No heart cath. Diverticulosis of colon [...] ELLIPTA 100-62.5-25 mcg inhalation powder Generic drug: hbnliuqwnhq-gmwiavtqn-roowlpa r USE 1 INHALATION DAILY INSTRUCTED triamcinolone [...] prior chest CT examinations is needed. Reference: [place] [employer]. Lung CT Screening Reporting and Data System (Lung-RADS). Available at: http://www.acr.org/Quality-Sa fety/Resources/LungRADS Piano Case Maker: PAT Transcribe Date/Time: Oct 19 2024 11:21A Dictated by : VIDAL PULLIAM MD This examination was interpreted and the report reviewed and electronically signed by: VIDAL PULLIAM MD on Oct 19 2024 11:28AM EST Results-Findings * * *Final Report* * * DATE OF EXAM: Oct 19 2024 10:09AM [facility] 0562 - CT LUNG SCREEN WO IVCON / PROCEDURE REASON: Former cigarette smoker * * * * Physician Interpretation * * * * EXAMINATION: CHEST CT WITHOUT CONTRAST (LOW-DOSE CT LUNG CANCER SCREENING MICHAEL (more content not included)... Normal [facility] DBT Breast - bilateral scree ningon 12-03-2024 IMPRESSION: There is no mammographic evidence [...] Manish Quintana M.D. Electronically signed on: 12/03/2024 Piano Case Maker: SHAMEKA Transcribe Date/Time: Dec 03 2024 11:01A Dictated by: MANISH QUINTANA MD This examination was interpreted and the report reviewed and electronically signed by: MANISH QUINTANA MD on Dec 03 2024 6:47PM EST DIVISION OF RADIOLOGY * * *Final Report* * * DATE OF EXAM: Dec 03 2024 11:38AM [facility] 0582 - ANUSHA SCREENING W ASHLEY / PROCEDURE REASON: Encounter for screening mammogram for breast cancer * * * * Physician Interpretation * * * * RESULT: [place] [address] [place] [address] #[id number] - ANUSHA SCREENING W ASHLEY HISTORY: 69 [...] in either breast. DIVISION OF RADIOLOGY Provider, [facility] - 12/03/2024 * * *Final Report* * * DATE OF EXAM: Dec 03 2024 11:38AM [facility] 0582 - ANUSHA SCREENING W ASHLEY / PROCEDURE REASON: Encounter for screening mammogram for breast cancer * * * * Physician Interpretation * * * * RESULT: [place] [address] #[id number] - ANUSHA SCREENING W ASHLEY HISTORY: 69 [...] Manish Quintana M.D. Electronically signed on: 12/03/2024 Piano Case Maker: SHAMEKA Transcribe Date/Time: Dec 03 2024 11:01A Dictated by: MANISH QUINTANA MD This examination was interpreted and the report reviewed and electronically signed by: MANISH QUINTANA MD on Dec 03 2024 6:47PM EST [facility] Radiology Study observation (narrative) [facility] DBT Breast - bilateral scree ningOrdered By: Ccf Provider on 12-03-2024 [facility] ANUSHA SCREENING W TOMOon 12-03 ANUSHA SCREENING W ASHLEY * * *Final Report* * * DATE OF EXAM: Dec 03 2024 11:38AM [facility] 0582 - ANUSHA SCREENING W ASHLEY / PROCEDURE REASON: Encounter for screening mammogram for breast cancer * * * * Physician Interpretation * * * * RESULT: [place] [address] [place] [address] #[id number] - ANUSHA SCREENING W ASHLEY HISTORY: 69 [...] Manish Quintana M.D. Electronically signed on: 12/03/2024 Piano Case Maker: SHAMEKA Transcribe Date/Time: Dec 03 2024 11:01A Dictated by: MANISH QUINTANA MD This examination was interpreted and the report reviewed and electronically signed by: MANISH QUINTANA MD on Dec 03 2024 6:47PM EST [id number] Normal [facility] CNOVon 10-19-2024 CNOV Office Visit (PULMWS ) LISA LUCERO ([id number]) 1955 F Date Time Provider Department 10/19/24 10:30 AM MARICRUZ CAMP PULMACEY During your visit today, we recorded the following information about you: Pulse Blood pressure Weight Height 101/minute 130/70 117.8 kg 1.626 m Maircruz Camp APRN.CNP 10/19/2024 2:53 PM Signed LUNG [...] which included preparing to see the patient, sdfy-zr-tbme patient care, completing clinical documentation, performing a medically appropriate examination, counseling and educating the patient/family/caregiver, ordering medications, tests, or procedures, communicating with other HCPs (not separately reported), independently interpreting results (not separately reported), communicating results to the patient/family/caregiver, and care coordination (not separately reported). Maricruz Camp, [facility] October 19, 2024 10:28 AM History [...] albuterol if feeling sick. Modified Medical Research [place] Dyspnea Scale (MMRC) I am too breathless [...] Medical Hi (more content not included)... Normal [facility] CT Chest for screening WO co ntraston 10-19-2024 IMPRESSION: LungRADS category: 0 LungRADS modifier: None LungRADS 0 reason: n/a Recommendations: Additional lung cancer screening CT images and/or comparison to prior chest CT examinations is needed. Reference: [place] [employer]. Lung CT Screening Reporting and Data System (Lung-RADS). Available at: http://www.acr.org/Quality-Sa fety/Resources/LungRADS Piano Case Maker: PAT Transcribe Date/Time: Oct 19 2024 11:21A Dictated by : VIDAL PULLIAM MD This examination was interpreted and the report reviewed and electronically signed by: VIDAL PULLIAM MD on Oct 19 2024 11:28AM [facility] DIVISION OF RADIOLOGY * * *Final Report* * * DATE OF EXAM: Oct 19 2024 10:09AM [facility] 0562 - CT LUNG SCREEN WO IVCON [...] without contrast. MQ: CTLCS_6 Patient characteristics: * Caou-oa-Btapk: 1955; Age at exam: 69 years * Gender: Female * Lung Disease: Asymptomatic (no signs or symptoms of lung disease) * Number of Pack Years: 38 * Current smoker (=0) or Number of Years since Quit: 15 * Ordering provider and NPI: MARICRUZ CAMP [id number] * Interpreting radiologist and NPI: Nicole [id number] Exam acquisition parameters: * Exam Date: 10/19/2024 10:09 AM * Site: [facility] * * CT System Distribution Center Administrator: Siemens * CT System Model: Sensation * [...] [* [email or web address].pettit-nhlbi.org/ca lcium/input.aspx] DIVISION OF RADIOLOGY Provider, [facility] - 10/19/2024 * * *Final Report* * * DATE OF EXAM: Oct 19 2024 10:09AM [facility] 0562 - CT LUNG SCREEN [facility] / PROCEDURE REASON: Former cigarette smoker * [...] without contrast. MQ: CTLCS_6 Patient characteristics: * Kftt-nd-Ftzkc: 1955; Age at exam: 69 years * Gender: Female * Lung Disease: Asymptomatic (no signs or symptoms of lung disease) * Number of Pack Years: 38 * Current smoker (=0) or Number of Years since Quit: 15 * Ordering provider and NPI: MARICRUZ CAMP [id number] * Interpreting radiologist and NPI: Nicole [id number] Exam acquisition parameters: * Exam Date: 10/19/2024 10:09 AM * Site: [facility] * * CT System Distribution Center Administrator: Dealdrive * CT System Model: Sensation * Tube [...] prior chest CT examinations is needed. Reference: [place] [employer]. Lung CT Screening Reporting and Data System (Lung-RADS). Available at: http://www.acr.org/Quality-Sa fety/Resources/LungRADS Piano Case Maker: PAT Transcribe Date/Time: Oct 19 2024 11:21A Dictated by : VIDAL PULLIAM MD This examination was interpreted and the report reviewed and electronically signed by: VIDAL PULLIAM MD on Oct 19 2024 11:28AM EST [facility] Radiology Study observation (narrative) [facility] CT Chest for screening WO co ntrastOrdered By: Ccf Provider on 10-19-[address] [facility] [address] LUNG SCREEN WO IVCONon CT LUNG SCREEN WO IVCON * * *Final Report* * * DATE OF EXAM: Oct 19 2024 10:09AM [facility] 0562 - CT LUNG SCREEN WO IVCON [...] without contrast. MQ: CTLCS_6 Patient characteristics: * Bmis-ua-Knaap: 1955; Age at exam: 69 years * Gender: Female * Lung Disease: Asymptomatic (no signs or symptoms of lung disease) * Number of Pack Years: 38 * Current smoker (=0) or Number of Years since Quit: 15 * Ordering provider and NPI: MARICRUZ CAMP [id number] * Interpreting radiologist and NPI: Nicole [id number] Exam acquisition parameters: * Exam Date: 10/19/2024 10:09 AM * Site: [facility] * * CT System Distribution Center Administrator: Siemens * CT System Model: Sensation * [...] prior chest CT examinations is needed. Reference: [place] [employer]. Lung CT Screening Reporting and Data System (Lung-RADS). Available at: http://www.acr.org/Quality-Sa karel/Resources/LungRADS Piano Case Maker: PAT Transcribe Date/Time: Oct 19 2024 11:21A Dictated by : VIDAL PULLIAM MD This examination was interpreted and the report reviewed and electronically signed by: VIDAL PULLIAM MD on Oct 19 2024 11:28AM EST [id number] Normal [facility] CNOVon 06-26-2024 CNOV Office Visit (PULMWS ) LISA LUCERO ([id number]) 1955 F Date Time Provider Department 06/26/24 11:45 AM DIANA GONZALEZ PULMWS During your visit today, we recorded the following information about you: Pulse Respiration Blood pressure Weight 80/minute 15/minute 136/78 115.2 kg Diana Gonzalez MD 06/26/2024 2:11 PM Signed . Respiratory [place] Note Patient name: Lisa Lucero PCP: Phuc Martines DO CC: Follow-up COPD HPI: Lsia Lucero 68 year old female former 23-ogug-xswv smoker, quitting in 2008 with PMH significant [...] DATE OF EXAM: Oct 08 2023 1:24PM [facility] 0562 - CT LUNG SCREEN WO IVCON [...] No date: Coronary artery disease Comment: No SD, CHF. No heart cath. No date: Diverticulosis [...] Take 1 tablet by mouth once daily. oxxuycexnvy-cbufshbpl-cnbawjf r (TRELEGY ELLIPTA) 100-62.5-25 mcg inhalation powder [...] COMPOUNDED PRESC (more content not included)... Normal [facility] Culture, Blood (WB)on 2023 CUB Blood cultures x2 fr om two different sites No growth in 5 days. Normal [facility] Comment on above: Performed By: #### L 500.4050, L500.4100, L100.0500, L501.9520 #### [facility] [address] [place], [place], [id number] Basic Metabolic Profile (BMP )on 05-06-2024 BUN/CRE 19.6 RATIO Normal 08-16 [facility] Comment on above: Order Comment: Blood cultures x2 from two different sites Performed By: #### L 500.4050, L500.4100, L100.0500, L501.9520 #### [facility] [address] [place], [address] CA,Total 9.2 mg/dL Normal 8.5-10.1 [facility] Comment on above: Order Comment: Blood cultures x2 from two different sites Performed By: #### L 500.4050, L500.4100, L100.0500, L501.9520 #### [facility] [address] [place], [address] Chloride [Moles/Vol] 103 mmol/L Normal 98-107 [facility] Comment on above: Order Comment: Blood cultures x2 from two different sites Performed By: #### L 500.4050, L500.4100, L100.0500, L501.9520 #### [facility] [address] [place], [address] CO2 [Moles/Vol] 36.0 mmol/L High 21.0-32.0 [facility] Comment on above: Order Comment: Blood cultures x2 from two different sites Performed By: #### L 500.4050, L500.4100, L100.0500, L501.9520 #### [facility] [address] [place], [address] Creatinine [Mass/Vol] 0.66 mg/dL Normal 0.55-1.02 [facility] Comment on above: Order Comment: Blood cultures x2 from two different sites Result Comment: The validity of the calculated GFR GFRAA in patients over 70 years has not been determined. Clinical correlation is essential. Performed By: #### L 500.4050, L500.4100, L100.0500, L501.9520 #### [facility] [address] [place], [address] EST GFR - AA 114 mL/min Normal >60 [facility] Comment on above: Order Comment: Blood cultures x2 from two different sites Result Comment: Afri can [place] GFR Calc Performed By: #### L 500.4050, L500.4100, L100.0500, L501.9520 #### [facility] [address] [place], [address] GAP 3 Low 5-15 [facility] Comment on above: Order Comment: Blood cultures x2 from two different sites Performed By: #### L 500.4050, L500.4100, L100.0500, L501.9520 #### [facility] [address] [place], [address] GFR/1.73 sq M.predicted among non-blacks MDRD (S/P/Bld) [Vol rate/Area] 95 mL/min/{1.73_m2} Normal >60 [facility] Comment on above: Order Comment: Blood cultures x2 from two different sites Result Comment: Non- GFR Calc Performed By: #### L 500.4050, L500.4100, L100.0500, L501.9520 #### [facility] [address] [place], [address] Glucose [Mass/Vol] 118 mg/dL High 74-106 [facility] Comment on above: Order Comment: Blood cultures x2 from two different sites Result Comment: Fast ing Glucose result from 100 to 125 mg/dL suggests IMPAIRED HOMEOSTASIS per A.D.A. criteria. Performed By: #### L 500.4050, L500.4100, L100.0500, L501.9520 #### [facility] [address] [place], [address] Potassium [Moles/Vol] 3.4 mmol/L Low 3.5-5.1 [facility] Comment on above: Order Comment: Blood cultures x2 from two different sites Performed By: #### L 500.4050, L500.4100, L100.0500, L501.9520 #### [facility] [address] [place], [address] Sodium [Moles/Vol] 142 mmol/L Normal 136-145 [facility] Comment on above: Order Comment: Blood cultures x2 from two different sites Performed By: #### L 500.4050, L500.4100, L100.0500, L501.9520 #### [facility] [address] [place], [address] Urea nitrogen [Mass/Vol] 13 mg/dL Normal 7-18 [facility] Comment on above: Order Comment: Blood cultures x2 from two different sites Performed By: #### L 500.4050, L500.4100, L100.0500, L501.9520 #### [facility] [address] [place], [address] CBC W/Diff, Automatedon 07- 0-2023 Absolute Lymph 0.79 X10 3/uL Low 0.83-4.51 [facility] Comment on above: Performed By: #### L 500.4050, L500.4100, L100.0500, L501.9520 #### [facility] [address] [place], [address] Absolute Neut 5.7 X10 3/uL Normal 2.0-7.7 [facility] Comment on above: Performed By: #### L 500.4050, L500.4100, L100.0500, L501.9520 #### [facility] [address] [place], [address] Basophils/100 WBC (Bld) 0.7 % Normal 0-1 [facility] Comment on above: Performed By: #### L 500.4050, L500.4100, L100.0500, L501.9520 #### [facility] [address] [place], [address] Eosinophils/100 WBC (Bld) 1.5 % Normal 0-5 [facility] Comment on above: Performed By: #### L 500.4050, L500.4100, L100.0500, L501.9520 #### [facility] [address] [place], [address] Erythrocyte distribution width (RBC) [Ratio] 14.6 % Normal 11.6-14.6 [facility] Comment on above: Performed By: #### L 500.4050, L500.4100, L100.0500, L501.9520 #### [facility] [address] [place], [address] Hematocrit (Bld) [Volume fraction] 39.7 % Normal 37-47 [facility] Comment on above: Performed By: #### L 500.4050, L500.4100, L100.0500, L501.9520 #### [facility] [address] [place], [address] Hemoglobin (Bld) [Mass/Vol] 13.0 g/dL Normal 12.0-15.0 [facility] Comment on above: Performed By: #### L 500.4050, L500.4100, L100.0500, L501.9520 #### [facility] [address] [place], [address] IG% 0.600 Normal 0.0-0.9 [facility] Comment on above: Result Comment: IG% - Immature Granulocytes (promyelocytes, myelocytes and metamyelocytes) > 1% indicates that a LEFT SHIFT is Present. Performed By: #### L 500.4050, L500.4100, L100.0500, L501.9520 #### [facility] [address] [place], [address] Lymphocytes/100 WBC (Bld) 10.9 % Low 19-41 [facility] Comment on above: Performed By: #### L 500.4050, L500.4100, L100.0500, L501.9520 #### [facility] [address] [place], [address] MCH (RBC) [Entitic mass] 31.7 pg Normal 27.0-32.0 [facility] Comment on above: Performed By: #### L 500.4050, L500.4100, L100.0500, L501.9520 #### [facility] [address] [place], [address] MCHC (RBC) [Mass/Vol] 32.7 g/dL Normal 32-36 [facility] Comment on above: Performed By: #### L 500.4050, L500.4100, L100.0500, L501.9520 #### [facility] [address] [place], [address] MCV (RBC) [Entitic vol] 96.8 fL Normal 81-99 [facility] Comment on above: Performed By: #### L 500.4050, L500.4100, L100.0500, L501.9520 #### [facility] [address] [place], [address] Monocytes/100 WBC (Bld) 7.8 % Normal 0-10 [facility] Comment on above: Performed By: #### L 500.4050, L500.4100, L100.0500, L501.9520 #### [facility] [address] [place], [address] Neutrophils/100 WBC (Bld) 78.5 % High 47-70 [facility] Comment on above: Performed By: #### L 500.4050, L500.4100, L100.0500, L501.9520 #### [facility] [address] [place], [address] Nucleated RBC (Bld) [#/Vol] 0 10*3/uL Normal 0-5 [facility] Comment on above: Performed By: #### L 500.4050, L500.4100, L100.0500, L501.9520 #### [facility] [address] [place], [address] Platelet mean volume (Bld) [Entitic vol] 10.6 fL Normal 6.2-12.0 [facility] Comment on above: Performed By: #### L 500.4050, L500.4100, L100.0500, L501.9520 #### [facility] [address] [place], [address] Platelets (Bld) [#/Vol] 261 10*3/uL Normal 150-450 [facility] Comment on above: Performed By: #### L 500.4050, L500.4100, L100.0500, L501.9520 #### [facility] [address] [place], [address] RBC (Bld) [#/Vol] 4.10 10*6/uL Low 4.2-5.[address] [facility] Comment on above: Performed By: #### L 500.4050, L500.4100, L100.0500, L501.9520 #### [facility] [address] [place], [address] RDW SD 52.0 fl High 35.1-43.9 [facility] Comment on above: Performed By: #### L 500.4050, L500.4100, L100.0500, L501.9520 #### [facility] [address] [place], [address] WBC (Bld) [#/Vol] 7.3 10*3/uL Normal 4.4-11.0 [facility] Comment on above: Performed By: #### L 500.4050, L500.4100, L100.0500, L501.9520 #### [facility] [address] [place], [address] Emergency Department Summary on 05-06-2024 Emergency Department Summary [facility] Medical Records Department [address] [place] [address] Emergency Department Summary 05/06/24 MR#: [id number] Acct: [id number] Name: LISA LUCERO Rep #: [id number] : 1955 68 From: Dane Kurtz DO PCP: Dr. Phuc Martines, Status:DEP ER Location: ED HPI History of [...] seen at the urgent care at the [facility] prior to starting the doxycycline. Patient [...] of Funtion Narrative Tetanus Immunization: 5-10 years [facility] Medical History (Updated 05/06/24 @ 11:43 by [...] the lo (more content not included)... Normal [facility] ANUSHA SCREENINGon 09-17-2023 [facility] CBC W Auto Differential pane l (Bld)on 08-14-2023 Basophils (Bld) [#/Vol] 0.06 10*3/uL <0.11 k/uL [facility] Basophils/100 WBC (Bld) 0.8 % [facility] Differential cell count method Nom (Bld) Auto [facility] Eosinophils (Bld) [#/Vol] 0.17 10*3/uL <0.46 k/uL [facility] Eosinophils/100 WBC (Bld) 2.3 % [facility] Erythrocyte distribution width (RBC) [Ratio] 14.0 % 11.5 - 15.0 % [facility] Hematocrit (Bld) [Volume fraction] 45.6 % 36.0 - 46.0 % [facility] Hemoglobin (Bld) [Mass/Vol] 14.5 g/dL 11.5 - 15.5 g/dL [facility] Immature granulocytes (Bld) [#/Vol] 0.04 10*3/uL <0.10 k/uL [facility] Immature granulocytes/100 WBC (Bld) 0.5 % [facility] Lymphocytes (Bld) [#/Vol] 1.10 10*3/uL 1.00 - 4.00 k/uL [facility] Lymphocytes/100 WBC (Bld) 14.8 % [facility] MCH (RBC) [Entitic mass] 31.6 pg 26.0 - 34.0 pg [facility] MCHC (RBC) [Mass/Vol] 31.8 g/dL 30.5 - 36.0 g/dL [facility] MCV (RBC) [Entitic vol] 99.3 fL 80.0 - 100.0 fL [facility] Monocytes (Bld) [#/Vol] 0.61 10*3/uL <0.87 k/uL [facility] Monocytes/100 WBC (Bld) 8.2 % [facility] Neutrophils (Bld) [#/Vol] 5.45 10*3/uL 1.45 - 7.50 k/uL [facility] Neutrophils/100 WBC (Bld) 73.4 % [facility] Nucleated RBC (Bld) [#/Vol] <0.01 k/uL [facility] Nucleated RBC/100 WBC (Bld) [Ratio] 0.0 /100 WBC [facility] Platelet mean volume (Bld) [Entitic vol] 11.7 fL 9.0 - 12.7 fL [facility] Platelets (Bld) [#/Vol] 222 10*3/uL 150 - 400 k/uL [facility] RBC (Bld) [#/Vol] 4.59 10*6/uL 3.90 - 5.20 m/uL [facility] WBC (Bld) [#/Vol] 7.43 10*3/uL 3.70 - 11.00 k/uL [facility] OXIMETRY WITH AMBULATIONon 0 06-13-2023 [facility] US ABD SPLEENon 03-06-2023 [facility] No Panel Informationon 10-10 [facility] XR Chest PA and Lateralon IMPRESSION: Overall findings unchanged. Piano Case Maker: PSCB Transcribe Date/Time: Oct 01 2022 5:09P Dictated by : MORAIMA CARDENAS MD This examination was interpreted and the report reviewed and electronically signed by: MORAIMA CARDENAS MD on Oct 01 2022 5:10PM [facility] DIVISION OF RADIOLOGY * * [...] soft tissues: Unremarkable. DIVISION OF RADIOLOGY Provider, [facility] - 10/01/2022 * * *Final Report* * [...] tissues: Unremarkable. IMPRESSION IMPRESSION: Overall findings unchanged. Piano Case Maker: PSCB Transcribe Date/Time: Oct 01 2022 5:09P Dictated by : MORAIMA CARDENAS MD This examination was interpreted and the report reviewed and electronically signed by: MORAIMA CARDENAS MD on Oct 01 2022 5:10PM EST [facility] XR Chest PA and LateralOrder ed By: [facility] Provider on 10-01-2022 [facility] XR Chest PA and Lateralon Radiology Study observation (narrative) [facility] ANUSHA SCREENINGon 09-11-2022 [facility] US ABD SPLEENon 09-03-[address] [facility] [address] CHEST WO IVCONon 08-30-20 Radiology Result ACTIONABLE Abnormal [facility] OXIMETRY WITH AMBULATIONon 0 03-16-2022 [facility] XR Foot - right AP and Later al and obliqueon 01-10-2021 IMPRESSION: Mild deg enerative changes Piano Case Maker: PAT Transcribe Date/Time: Jan 10 2021 11:21A Dictated by : ROXANNE MARTEL MD This examination was interpreted and the report reviewed and electronically signed by: ROXANNE MARTEL MD on Jan 10 2021 11:23AM [facility] DIVISION OF RADIOLOGY * * [...] erosions. No fracture. DIVISION OF RADIOLOGY Provider, [facility] Lexie andrews [place] - 01/10/2021 * * *Final Report* * [...] No fracture. IMPRESSION IMPRESSION: Mild degenerative changes Piano Case Maker: PAT Transcribe Date/Time: Jan 10 2021 11:21A Dictated by : ROXANNE MARTEL MD This examination was interpreted and the report reviewed and electronically signed by: ROXANNE MARTEL MD on Jan 10 2021 11:23AM EST [facility] Radiology Study observation (narrative) [facility] XR Foot - right AP and Later al and obliqueOrdered By: [facility] Provider on 01-10-2021 [facility] ANES Regina 09-10-2018 ANES POST HNO ID: [id number] thor: Cornelio DangService: AnesthesiologyAuthor Type: AnesthesiologistType: Anesthesia PostOpFiled: 09/10/2018 1:54 [...] Remarks:SIGNATURE: Cornelio Dang MD PATIENT NAME: Lisa Shah: September 10, 2018 : 1:54 PM PAGER/CONTACT #: [phone] [facility] ANES PREOPon 09-10-2018 ANES PREOP HNO ID: [id number] thor: Ann-Marie CárdenasinService: AnesthesiologyAuthor Type: AnesthesiologistType: Anesthesia PreOpFiled: 09/10/2018 11:07 AMNote Text: ANESTHESIOLOGY DAY OF SURGERY NOTESERVICE DATE: 09/10/2018SERVICE TIME: 11:06 AMDOB: 1955Procedure(s) (LRB):COLONOSCOPY (N/A)Surgeon(s):Margot NicholsontmanEstimated body mass index is 43.94 kg/m? as [...] FLANKIrritable Bowel SyndromeCopd (Chronic Obstructive Pulmonary Disease) ([facility])HypoxemiaFormer SmokerObstructive Sleep ApneaWell Adult ExamChronic Obstructive Pulmonary Disease ([facility])Obesity, Class III, BMI >= 40 (morbid obesity) E66.01Oxygen DependentAcute Bronchitis With Chronic Obstructive Pulmonary Disease (Copd) ([facility])Impaired Fasting GlucoseScreening for Colon CancerPAST MEDICAL HISTORYDiagnosis Date- COPD (chronic obstructive pulmonary disease) ([facility]) 02/03/2010- Coronary artery disease No SD, CHF. No heart cath.- Diverticulosis of colon (without mention of hemorrhage)- Essential hypertension, benign- Fibrocystic breast- Former smoker- Internal hemorrhoids without mention of complication- Leiomyoma of uterus, unspecified- Obstructive sleep apnea Mild. Not prescribed CPAP, only 2L nasal O2.PAST SURGICAL HISTORYProcedure Laterality Date- BREAST LUMPECTOMY HX Right 1997- COLONOSCOP W/ OR W/O [facility] SPEC 08/27/08 repeat due 2017- IMPACT TOOTH [...] to Encounter:Lactobacillus acidophilus (PROBIOTIC ORAL) Take by mouth.qsnmfchkbtk-ctnkmgkbt-b ilanter (TRELEGY ELLIPTA) 100-62.5-25 mcg dsdvInhale 1 Puff as instructed once daily.NYAMYC powder APPLY 1 APPLICATION TO AFFECTED AREA FOUR TIMES A DAY(Patient taking differently: prn)triamterene-hydrochloroth iazide 37.5-25 mg per capsule TAKE 1 CAPSULEDAILYCOMPOUNDED PRESCRIPTION Please do nocturnal oximetry on 2 L. DME: [facility].ipratropium-albut alan (DUONEB) 0.5 mg-3 mg(2.5 mg base)/3 [...] iv infusion 30 mL/hr INTRAVENOUS CONTINUOUS Margot GalvanLast Rate: 30 mL/hr at 09/10/18 1100 30 [...] OralASA Class: 3Other Medical Problems: NoneChronic Beta Stefanie medication administered within 24 hours: N/AI have interviewed and examined the patient. I have reviewed the medicalrecord and/or the pre-anesthesia evaluation, pertinent labs, and testresults.Significant changes in the patient's condition since the History andPhysical, not otherwise documented in primary service progress notes: NoThis contains updated information obtained within 48 hours ofSurgery/Procedure.SIGNATURE : Ann-Marie eTjada MD PATIENT NAME: Lisa OnofresDATE: September 10, 2018 : 11:06 AM CSN: [id number] Normal [facility] HISTORY PHYSICALon 8 HISTORY PHYSICAL HNO ID: [id number] thor: Margot YorkanService: General SurgeryAuthor Type: PhysicianType: HANDPFiled: 09/10/2018 10:34 AMNote Text:?HISTORY AND PHYSICAL?Lisa Sahni Cwhpsq1955?REFERRING PHYSICIAN: Phuc Martines, DO?CHIEF COMPLAINT: Consult (Consult [...] upper GI complaints.?Lisa has undergone prior endoscopy, [address] Rhodes.The patient is being seen [...] (HCC) 02/03/2010- Coronary artery disease ?? No SD, CHF. No heart cath.- Diverticulosis of colon (without mention of hemorrhage) ?- Essential hypertension, benign ?- Fibrocystic breast ?- Former smoker ?- Internal hemorrhoids without mention of complication ?- Leiomyoma of uterus, unspecified ?- Obstructive sleep apnea ?? Mild. Not prescribed CPAP, only 2L nasal O2.??PAST SURGICAL HISTORYPAST SURGICAL HISTORYProcedure Laterality Date- BREAST LUMPECTOMY HX Right 1997- COLONOSCOP W/ OR W/O [facility] SPEC ? 08/27/08? repeat due 2017- IMPACT TOOTH REMOV COMP BONY ? ?? WISDOM TEETH- INGUINAL HERNIA REPAIR HX ? 1975? bilateral- PAST SURGICAL HISTORY OF ? ?? hemangioma left cheek???CURRENT MEDICATIONS?Current Outpatient Prescriptions:Lactobacillus acidophilus (PROBIOTIC ORAL) Take by mouth.vutukjoxxmi-viubsdcse-d ilanter (TRELEGY ELLIPTA) 100-62.5-25 mcg dsdvInhale 1 Puff as instructed once daily.NYAMYC powder APPLY 1 APPLICATION TO AFFECTED AREA FOUR TIMES A DAYtriamterene-hydrochlorothi azide 37.5-25 mg per capsule TAKE 1 CAPSULEDAILYCOMPOUNDED PRESCRIPTION Please do nocturnal oximetry on 2 L. DME: [facility].ipratropium-albut alan (DUONEB) 0.5 mg-3 mg(2.5 mg base)/3 [...] ordenies gout.??When was patient's last Mammogram screening? 2016? Last Colonoscopy: 2007?Zaynab STARK have confirmed and [...] notes Sx?pelvic floor prolapse, recommend evaluation by DRILL PRESS OPERATOR-patient states hasappt in September. COPD, on oxygen [...] have been communicated to Dr. Martines via [employer]. This note will be forwarded to Dr. Phuc Martines, .Return to Clinic: The patient is instructed to follow-up with me 1 weekpost operatively.? Basia Ely PA-C [facility] NURSING PROGon 09-10-2018 Protein mass conc HNO ID: [id number] Author: Kajal (Rn) HERRERA Rodney Service: Nursing Author Type: Registered Nurse Type: Nursing Progress Note Filed: 09/10/2018 1:11 PM Note Text: 1245 pt to PACU. TRIANA TCx4. Denies pain. PIV DANDI. VSS no s/sx of distress. [facility] PT EDon 09-10-2018 PT ED HNO ID: [id number] thor: Sola WhitfieldRn) LAITH Velazquezervice: (none)Author Type: Registered NurseType: Patient EducationFiled: 09/10/2018 [...] NoneREFERRAL (RECOMMENDATION): NoneElectronically Signed By: Sola Velazquez, HERRERA, BSN [facility] PT ED HNO ID: [id number] thor: Roni WhitfieldRn) LAITH Baileyervice: NursingAuthor Type: Registered NurseType: Patient EducationFiled: 09/10/2018 11:05 AMNote Text:PRE OP LEARNING ASSESSMENTPROCEDURE/SURGERY: GI PROCEDURES: ColonoscopyREADINESS TO LEARNCOGNITIVE ABILITY: Alert and orientedMOTIVATION TO LEARN: InterestedFAMILY SUPPORT: High - Very involved in pt carePATIENT LEARNS BEST BY: Verbal InstructionFACTORS AFFECTING LEARNING: NonePHYSICAL LIMITATIONS AFFECTING LEARNING: NoneElectronically Signed By: Roni Bailey RN [facility] NURSING PROGon 09-09-2018 Protein mass conc HNO ID: [id number] thor: Sherrell (Rn) LAITH Waterservice: NursingAuthor Type: Registered NurseType: Nursing [...] Considerations:N/AChart Check:Hieu Waters RNNovember 2017 9:58 AM [facility] HISTORY PHYSICALon 8 HISTORY PHYSICAL HNO ID: [id number] thor: Marty Goncalves Pa-Cice: (none)Author Type: Physician [...] FLANKIrritable Bowel SyndromeCopd (Chronic Obstructive Pulmonary Disease) ([facility])HypoxemiaFormer SmokerObstructive Sleep ApneaChestnut [facility] Adult ExamChronic Obstructive Pulmonary Disease ([facility])Obesity, Class III, BMI >= 40 (morbid obesity) E66.01Oxygen DependentAcute Bronchitis With Chronic Obstructive Pulmonary Disease (Copd) ([facility])Impaired Fasting GlucoseScreening for Colon CancerSubjectiveCHIEF COMPLAINT: Routine colonoscopyHPI: Lisa is a 63 year old female, her last colonoscopy was aboutten years ago which was normal. She has c/o intermittent constipation andepisodes of vaginal pressure with the constipation. She denies nausea,vomiting, diarrhea, or abdominal pain.Patient is scheduled for colonoscopy by Dr. Galvan on 09/10/2018.PAST MEDICAL HISTORYDiagnosis Date- COPD (chronic obstructive pulmonary disease) ([facility]) 02/03/2010- Coronary artery disease No SD, CHF. No heart cath.- Diverticulosis of colon (without mention of hemorrhage)- Essential hypertension, benign- Fibrocystic breast- Former smoker- Internal hemorrhoids without mention of complication- Leiomyoma of uterus, unspecified- Obstructive sleep apnea Mild. Not prescribed CPAP, only 2L nasal O2.PAST SURGICAL HISTORYProcedure Laterality Date- BREAST LUMPECTOMY HX Right 1997- COLONOSCOP W/ OR W/O [facility] SPEC 08/27/08 repeat due 2017- IMPACT TOOTH REMOV COMP BONY WISDOM TEETH- INGUINAL HERNIA REPAIR HX 1976 bilateral- PAST SURGICAL HISTORY OF hemangioma left [...] acidophilus (PROBIOTIC ORAL) Take by mouth. Taking Mothnljdpcxrml-rolxryfeq-tafz nter (TRELEGY ELLIPTA) 100-62.5-25 mcg dsdvInhale 1 [...] do nocturnal oximetry on 2 L. DME: [facility].Patient not taking: Reported on 09/05/2018 Not TakingCOMPOUNDED PRESCRIPTION Please perform nocturnal oximetry on 2 lpm O2.DX: Severe COPD, chronic hypoxemic respiratory failurePatient not taking: Reported on 09/05/2018 Not TakingNo medication comments found.ALLERGIESNo Known AllergiesREVIEW OF SYSTEMS:PAIN ASSESSMENT:General: No weight loss, malaise or fevers.Neuro: No history of TIA's, stroke, PILL MACHINE OPERATOR tumor, impaired sensorium,hemiplegia, paraplegia or quadraplegia. No [...] requiring dialysis. Negative for dysuria, hematuria,urgency, or frequency.DRILL PRESS OPERATOR: Negative for abnormal vaginal bleeding, abnormal vaginal [...] recent labsMost recent EKGMost recent EchoAll in [facility] nt has the following medical [...] compliance.SIGNATURE: Jeanine Mckeon PA-C PATIENT NAME: Lisa OnofreNVATE: September 05, 2018 : 9:32 AM PAGER/CONTACT #: [facility] HOSPon 08-27-2018 HOSP Patient:Linwood Lucero KMRN: Height:5' 4.5(1.638 m)Weight:256 lb 1.6 oz (116.166 kg)Outpatient Medications as of 09/10/18:Lactobacillus acidophilus (PROBIOTIC ORAL)hhivqygvrjl-vjqtzmnhk-dj lanter (TRELEGY ELLIPTA) 100-62.5-25 mcg dsdvNYAMYC powdertriamterene-hydrochloro [...] days for the following basenames: K,HCTProgress Notes ([facility]):Deo Dickerson RN 08/30/2018 9:50 AM Felisy89 year old female here for INACTIVATED INFLUENZA VACCINE.5166-0421 SeasonPatient is identified by name and date of : Yes [] CONTRAINDICATIONS color enhancedsectionAge less than 6 months? NoAllergy to eggs, chicken, chicken feathers, or chicken dander? NoAllergy to thimerosal (a preservative) or formaldehyde, gelatin? NoHistory of severe reaction to any vaccine component or a previous dose ofinfluenza vaccination? NoHistory of Guillain-Oakridge Syndrome within 6 weeks after a previous [...] information sheet given? YesSee immunization activity in [facility] for details of immunizations adminsteredtoday.Patient age: [age] year old For The 7409-6949 Flu Season6-35 months old: Fluzone 0.25 ml [...] second dosein one months time.Previous VersionProgress Notes ([facility]):Teodoro Bower 08/27/2018 9:33 AM [id number] Colon [facility] unless told otherwise. Dr Galvan, can you please reviewthis patients information . Thank you Teodoro Amycamron Sathish 08/27/2018 2:59 PM Signedleft message for patient to call back so we can schedule her procedure in ahospital setting Teodoro Bower 08/27/2018 3:54 PM [id number] [place] Teodoroliliana Bower 08/28/2018 1:22 PM [id number] Colon Barbara Jenkins [facility] Vital Signs Date Time Vital Sign Value Performing Clinician Facility 05-07-2025 13:37-0400 Body height 162.[address] Phuc Martines DO Work Phone: [facility] 05-07-2025 13:37-0400 Body mass index (BMI) [Ratio] 44.4 kg/m2 Dr. Phuc Martines DO Work Phone: 4(274)554-510754 [place] [address] 05-07-2025 13:37-0400 Body weight 117.[address] Phuc Martines DO Work Phone: 7(345)003-886143 [address] [place] [address] 05-07-2025 13:37-0400 Diastolic blood pressure 65 mm[Hg] Dr. Phuc Martines DO Work Phone: 0(773)682-141143 [address] [place] [address] 05-07-2025 13:37-0400 Heart rate 75 /min Dr. Phuc Martines DO Work Phone: 2(093)546-607143 [address] [place] [address] 05-07-2025 13:37-0400 Inhaled oxygen flow rate 2 L/min Dr. Phuc Martines DO Work Phone: 6(093)827-864443 [address] [place] [address] 05-07-2025 13:37-0400 Respiratory rate 20 /min Dr. Phuc Martines DO Work Phone: 7(987)290-899943 [address] [place] [address] 05-07-2025 13:37-0400 SaO2% (BldA) [Mass fraction] 82 % Dr. Phuc Martines DO Work Phone: 8(069)[phone] [address] [place] [address] 05-07-2025 13:37-0400 Systolic blood pressure 101 mm[Hg] Dr. Phuc Martines DO Work Phone: 8(492)181-528043 [address] [place] [address] 04-27-2025 14:20-0400 Heart rate 90 /min Dr. Phuc Martines DO Work Phone: 3(022)734-754343 [address] [place] [address] 04-27-2025 14:20-0400 Respiratory rate 18 /min Dr. Phuc Martines DO Work Phone: 5(519)165-390143 [address] [place] [address] 04-27-2025 11:43-0400 Body temperature 98.6 [degF] Dr. Phuc Martines DO Work Phone: 0(283)484-358643 [place] [address] 04-27-2025 11:43-0400 Diastolic blood pressure 53 mm[Hg] Dr. Phuc Martines DO Work Phone: 9(642)276-306743 [address] [place] [address] 04-27-2025 11:43-0400 Inhaled oxygen flow rate 5 L/min Dr. Phuc Martines DO Work Phone: 9(224)165-686743 [address] [place] [address] 04-27-2025 11:43-0400 SaO2% (BldA) [Mass fraction] 95 % Dr. Phuc Martines DO Work Phone: 7(107)970-642243 [address] [place] [address] 04-27-2025 11:43-0400 Systolic blood pressure 110 mm[Hg] Dr. Phuc Martines DO Work Phone: 6(292)188-918043 [address] [place] [address] 04-27-2025 04:35-0400 Body mass index (BMI) [Ratio] 44.5 kg/m2 Dr. Phuc Martines DO Work Phone: 7(348)477-016743 [address] [place] [address] 04-27-2025 04:35-0400 Body weight 117.[address] Phuc Martines DO Work Phone: 2(044)268-151243 [address] [place] [address] 04-23-2025 22:47-0400 Body height 162.[address] Phuc Martines DO Work Phone: 7(214)876-996043 [address] [place] [address] 04-23-2025 22:02-0400 Diastolic blood pressure 74 mm[Hg] Dr. Phuc Martines DO Work Phone: 5(745)276-009943 [address] [place] [address] 04-23-2025 22:02-0400 Heart rate 127 /min Dr. Phuc Martines DO Work Phone: 8(465)454-084743 [address] [place] [address] 04-23-2025 22:02-0400 Respiratory rate 24 /min Dr. Phuc Martines DO Work Phone: 5(045)698-734243 [address] [place] [address] 04-23-2025 22:02-0400 SaO2% (BldA) [Mass fraction] 94 % Dr. Phuc Martines DO Work Phone: 2(228)882-145943 [address] [place] [address] 04-23-2025 22:02-0400 Systolic blood pressure 140 mm[Hg] Dr. Phuc Martines DO Work Phone: 4(822)294-443643 [address] [place] [address] 04-23-2025 21:58-0400 Body temperature 98.6 [degF] Dr. Phuc Martines DO Work Phone: 4(981)532-801843 [place] [address] 04-23-2025 21:00-0400 Inhaled oxygen flow rate 3.5 L/min Dr. Phuc Martines DO Work Phone: [facility] 04-23-2025 16:18-0400 Body height 162.[address] Phuc Martines DO Work Phone: [facility] 04-23-2025 16:18-0400 Body mass index (BMI) [Ratio] 43.7 kg/m2 Dr. Phuc Martines DO Work Phone: [facility] 04-23-2025 16:18-0400 Body weight 115.[address] Phuc Martines DO Work Phone: [facility] 04-23-2025 14:59-0400 Body mass index (BMI) [Ratio] 43.98 kg/m2 Terrie Carson APRN.NEWSSTAND VENDOR Work Phone: [facility] 04-23-2025 14:59-0400 Body weight 116.21 kg Terrie Carson APRN.NEWSSTAND VENDOR Work Phone: [facility] 04-23-2025 14:59-0400 Diastolic blood pressure 62 mm[Hg] Terrie Carson ACCURACY EXPERT.NEWSSTAND VENDOR Work Phone: [facility] 04-23-2025 14:59-0400 Heart rate 129 /min Terrie Carson APRN.NEWSSTAND VENDOR Work Phone: [facility] 04-23-2025 14:59-0400 Respiratory rate 20 /min Terrie Carson APRN.NEWSSTAND VENDOR Work Phone: [facility] 04-23-2025 14:59-0400 SaO2% (BldA) [Mass fraction] 92 % Terrie Carson APRN.NEWSSTAND VENDOR Work Phone: [facility] 04-23-2025 14:59-0400 Systolic blood pressure 122 mm[Hg] Terrie Carson APRN.NEWSSTAND VENDOR Work Phone: [facility] 04-20-2025 09:48-0400 Body mass index (BMI) [Ratio] 44.27 kg/m2 Damon Eugene APRN.NEWSSTAND VENDOR Work Phone: [facility] 04-20-2025 09:48-0400 Body temperature 98.4 [degF] Damon Eugene APRN.NEWSSTAND VENDOR Work Phone: [facility] 04-20-2025 09:48-0400 Body weight 117 kg Damon Eugene APRN.NEWSSTAND VENDOR Work Phone: [facility] 04-20-2025 09:48-0400 Diastolic blood pressure 80 mm[Hg] Damon Eugene APRN.NEWSSTAND VENDOR Work Phone: [facility] 04-20-2025 09:48-0400 Heart rate 94 /min Damon Eugene APRN.NEWSSTAND VENDOR Work Phone: [facility] 04-20-2025 09:48-0400 Respiratory rate 18 /min Damon Eugene APRN.NEWSSTAND VENDOR Work Phone: [facility] 04-20-2025 09:48-0400 SaO2% (BldA) [Mass fraction] 91 % Damon Eugene APRN.NEWSSTAND VENDOR Work Phone: [facility] 04-20-2025 09:48-0400 Systolic blood pressure 132 mm[Hg] Damon Eugene APRN.NEWSSTAND VENDOR Work Phone: [facility] 03-31-2025 12:52-0400 Body mass index (BMI) [Ratio] 45.08 kg/m2 Janette Benedictlogcarleen ACCURACY EXPERT.NEWSSTAND VENDOR Work Phone: [facility] 03-31-2025 12:52-0400 Body weight 119.11 kg Janette Benedictlogar ACCURACY EXPERT.NEWSSTAND VENDOR Work Phone: [facility] 03-31-2025 12:52-0400 Diastolic blood pressure 82 mm[Hg] Janette Podlogar ACCURACY EXPERT.NEWSSTAND VENDOR Work Phone: [facility] 03-31-2025 12:52-0400 Heart rate 91 /min Janette Benedictlogar ACCURACY EXPERT.NEWSSTAND VENDOR Work Phone: [facility] 03-31-2025 12:52-0400 Respiratory rate 18 /min Janette Podlogar ACCURACY EXPERT.NEWSSTAND VENDOR Work Phone: [facility] 03-31-2025 12:52-0400 SaO2% (BldA) [Mass fraction] 92 % Janette aDmon APRN.NEWSSTAND VENDOR Work Phone: [facility] Comment on above: 3LPM 03-31-2025 12:52-0400 Systolic blood pressure 124 mm[Hg] Janette Damon APRN.NEWSSTAND VENDOR Work Phone: [facility] 03-30-2025 11:28-0400 Body height 162.[address] Phuc Martines DO Work Phone: [facility] 03-30-2025 11:28-0400 Body mass index (BMI) [Ratio] 45.1 kg/m2 Dr. Phuc Martines DO Work Phone: [facility] 03-30-2025 11:28-0400 Body weight 119.[address] Phuc Martines DO Work Phone: 1(904)659-839254 [place] [address] 03-30-2025 11:28-0400 Diastolic blood pressure 80 mm[Hg] Dr. Phuc Martines DO Work Phone: 5(766)363-502154 [place] [address] 03-30-2025 11:28-0400 Heart rate 69 /min Dr. Phuc Martines DO Work Phone: [facility] 03-30-2025 11:28-0400 Inhaled oxygen flow rate 2 L/min Dr. Phuc Martines DO Work Phone: [facility] 03-30-2025 11:28-0400 Respiratory rate 18 /min Dr. Phuc Martines DO Work Phone: [facility] 03-30-2025 11:28-0400 SaO2% (BldA) [Mass fraction] 86 % Dr. Phuc Martines DO Work Phone: [facility] 03-30-2025 11:28-0400 Systolic blood pressure 122 mm[Hg] Dr. Phuc Martines DO Work Phone: [facility] 03-01-2025 12:31-0400 Body mass index (BMI) [Ratio] 45.01 kg/m2 Janette Podlogar ACCURACY EXPERT.NEWSSTAND VENDOR Work Phone: [facility] 03-01-2025 12:31-0400 Body weight 118.93 kg Janette Podlogar ACCURACY EXPERT.NEWSSTAND VENDOR Work Phone: [facility] 03-01-2025 12:31-0400 Diastolic blood pressure 70 mm[Hg] Janette Podlogar ACCURACY EXPERT.NEWSSTAND VENDOR Work Phone: [facility] 03-01-2025 12:31-0400 Heart rate 76 /min Janette Podlogar ACCURACY EXPERT.NEWSSTAND VENDOR Work Phone: [facility] 03-01-2025 12:31-0400 Respiratory rate 18 /min Janette Podlogar ACCURACY EXPERT.NEWSSTAND VENDOR Work Phone: [facility] 03-01-2025 12:31-0400 SaO2% (BldA) [Mass fraction] 90 % Janette Podlogar ACCURACY EXPERT.NEWSSTAND VENDOR Work Phone: [facility] Comment on above: 3LPM 03-01-2025 12:31-0400 Systolic blood pressure 116 mm[Hg] Janette Podlogar ACCURACY EXPERT.NEWSSTAND VENDOR Work Phone: [facility] 02-23-2025 13:26-0400 Body temperature 98.4 [degF] Dr. Phuc Martines DO Work Phone: [facility] 02-23-2025 13:26-0400 Diastolic blood pressure 83 mm[Hg] Dr. Phuc Martines DO Work Phone: [facility] 02-23-2025 13:26-0400 Heart rate 104 /min Dr. Phuc Martines DO Work Phone: [facility] 02-23-2025 13:26-0400 Inhaled oxygen flow rate 3.5 L/min Dr. Phuc Martines DO Work Phone: [facility] 02-23-2025 13:26-0400 Respiratory rate 18 /min Dr. Phuc Martines DO Work Phone: [facility] 02-23-2025 13:26-0400 SaO2% (BldA) [Mass fraction] 97 % Dr. Phuc Martines DO Work Phone: [facility] 02-23-2025 13:26-0400 Systolic blood pressure 110 mm[Hg] Dr. Phuc Martines DO Work Phone: [facility] 02-23-2025 03:57-0400 Body mass index (BMI) [Ratio] 44.6 kg/m2 Dr. Phuc Martines DO Work Phone: [facility] 02-23-2025 03:57-0400 Body weight 117.[address] Phuc Martines DO Work Phone: [facility] 02-22-2025 10:02-0400 Body height 162.[address] Phuc Martines DO Work Phone: [facility] 01-25-2025 11:08-0400 Body height 162.6 cm Maricruz Camp APRN.NEWSSTAND VENDOR Work Phone: [facility] 01-25-2025 11:08-0400 Body mass index (BMI) [Ratio] 45.56 kg/m2 Maricruz Camp APRN.NEWSSTAND VENDOR Work Phone: [facility] 01-25-2025 11:08-0400 Body weight 120.39 kg Maricruz Camp ACCURACY EXPERT.NEWSSTAND VENDOR Work Phone: [facility] 01-25-2025 11:08-0400 Diastolic blood pressure 76 mm[Hg] Maricruz Camp ACCURACY EXPERT.NEWSSTAND VENDOR Work Phone: [facility] 01-25-2025 11:08-0400 Heart rate 88 /min Maricruz Camp APRN.NEWSSTAND VENDOR Work Phone: [facility] 01-25-2025 11:08-0400 SaO2% (BldA) [Mass fraction] 92 % Maricruz Camp APRN.NEWSSTAND VENDOR Work Phone: [facility] 01-25-2025 11:08-0400 Systolic blood pressure 131 mm[Hg] Maricruz Camp ACCURACY EXPERT.NEWSSTAND VENDOR Work Phone: [facility] 01-20-2025 14:36-0400 Body mass index (BMI) [Ratio] 45.32 kg/m2 Phuc Martines DO Work Phone: [facility] 01-20-2025 14:36-0400 Body temperature 97 [degF] Phuc Martines DO Work Phone: [facility] 01-20-2025 14:36-0400 Body weight 119.75 kg Phuc Martines DO Work Phone: [facility] 01-20-2025 14:36-0400 Diastolic blood pressure 70 mm[Hg] Phuc Martines DO Work Phone: [facility] 01-20-2025 14:36-0400 Heart rate 72 /min Phuc Martines DO Work Phone: [facility] 01-20-2025 14:36-0400 Respiratory rate 20 /min Phuc Martines DO Work Phone: [facility] 01-20-2025 14:36-0400 Systolic blood pressure 138 mm[Hg] Phuc Martines DO Work Phone: [facility] 12-25-2024 11:22-0500 Body mass index (BMI) [Ratio] 45.08 kg/m2 Lisa Click ACCURACY EXPERT.NEWSSTAND VENDOR Work Phone: [facility] 12-25-2024 11:22-0500 Body weight 119.11 kg Lisa Click ACCURACY EXPERT.NEWSSTAND VENDOR Work Phone: [facility] 12-25-2024 11:22-0500 Diastolic blood pressure 64 mm[Hg] Lisa Click ACCURACY EXPERT.NEWSSTAND VENDOR Work Phone: [facility] 12-25-2024 11:22-0500 Heart rate 92 /min Lisa Click ACCURACY EXPERT.NEWSSTAND VENDOR Work Phone: [facility] 12-25-2024 11:22-0500 Respiratory rate 20 /min Lisa Click ACCURACY EXPERT.NEWSSTAND VENDOR Work Phone: [facility] 12-25-2024 11:22-0500 SaO2% (BldA) [Mass fraction] 91 % Lisa Click ACCURACY EXPERT.NEWSSTAND VENDOR Work Phone: [facility] Comment on above: 2 L [place] 12-25-2024 11:22-0500 Systolic blood pressure 134 mm[Hg] Lisa Click ACCURACY EXPERT.NEWSSTAND VENDOR Work Phone: [facility] 10-19-2024 10:15-0500 Body height 162.6 cm Maricruz Marblehead ACCURACY EXPERT.NEWSSTAND VENDOR Work Phone: [facility] 10-19-2024 10:15-0500 Body mass index (BMI) [Ratio] 44.56 kg/m2 Maricruz Marblehead ACCURACY EXPERT.NEWSSTAND VENDOR Work Phone: [facility] 10-19-2024 10:15-0500 Body weight 117.75 kg Maricruz [place]head ACCURACY EXPERT.NEWSSTAND VENDOR Work Phone: [facility] 10-19-2024 10:15-0500 Diastolic blood pressure 70 mm[Hg] Maricruz Mar[place]head ACCURACY EXPERT.NEWSSTAND VENDOR Work Phone: [facility] 10-19-2024 10:15-0500 Heart rate 101 /min Maricruz [place]head ACCURACY EXPERT.NEWSSTAND VENDOR Work Phone: [facility] 10-19-2024 10:15-0500 SaO2% (BldA) [Mass fraction] 90 % Maricruz Mar[place]head ACCURACY EXPERT.NEWSSTAND VENDOR Work Phone: [facility] Comment on above: 3 L 10-19-2024 10:15-0500 Systolic blood pressure 130 mm[Hg] Maricruz Marblehead ACCURACY EXPERT.NEWSSTAND VENDOR Work Phone: [facility] 06-26-2024 11:29-0400 Body mass index (BMI) [Ratio] 43.6 kg/m2 Diana Gonzalez MD Work Phone: [facility] 06-26-2024 11:29-0400 Body weight 115.21 kg Diana Gonzalez MD Work Phone: [facility] 06-26-2024 11:29-0400 Diastolic blood pressure 78 mm[Hg] Diana Gonzalez MD Work Phone: [facility] 06-26-2024 11:29-0400 Heart rate 80 /min Diana Gonzalez MD Work Phone: [facility] 06-26-2024 11:29-0400 Respiratory rate 15 /min Diana Gonzalez MD Work Phone: [facility] 06-26-2024 11:29-0400 SaO2% (BldA) [Mass fraction] 91 % Diana Gonzalez MD Work Phone: [facility] 06-26-2024 11:29-0400 Systolic blood pressure 136 mm[Hg] Diana Gonzalez MD Work Phone: [facility] 04-26-2024 10:59-0400 Body mass index (BMI) [Ratio] 44.65 kg/m2 Damon Eugene APRN.NEWSSTAND VENDOR Work Phone: [facility] 04-26-2024 10:59-0400 Body temperature 98.6 [degF] Damon Eugene APRN.NEWSSTAND VENDOR Work Phone: [facility] 04-26-2024 10:59-0400 Body weight 118 kg Damon Eugene APRN.NEWSSTAND VENDOR Work Phone: [facility] 04-26-2024 10:59-0400 Diastolic blood pressure 68 mm[Hg] Damon Eugene APRN.NEWSSTAND VENDOR Work Phone: [facility] 04-26-2024 10:59-0400 Heart rate 68 /min Damon Eugene APRN.NEWSSTAND VENDOR Work Phone: [facility] 04-26-2024 10:59-0400 Respiratory rate 20 /min Damon Eugene APRN.NEWSSTAND VENDOR Work Phone: [facility] 04-26-2024 10:59-0400 SaO2% (BldA) [Mass fraction] 98 % Damon Eugene APRN.NEWSSTAND VENDOR Work Phone: [facility] 04-26-2024 10:59-0400 Systolic blood pressure 144 mm[Hg] Damon Eugene APRN.NEWSSTAND VENDOR Work Phone: [facility] 03-13-2024 12:59-0400 Body mass index (BMI) [Ratio] 44.29 kg/m2 Phuc Martines DO Work Phone: [facility] 03-13-2024 12:59-0400 Body temperature 97.59 [degF] Phuc Martines DO Work Phone: [facility] 03-13-2024 12:59-0400 Body weight 117.03 kg Phuc Martines DO Work Phone: [facility] 03-13-2024 12:59-0400 Diastolic blood pressure 70 mm[Hg] Phuc Martines DO Work Phone: [facility] 03-13-2024 12:59-0400 Heart rate 102 /min Phuc Martines DO Work Phone: [facility] 03-13-2024 12:59-0400 Respiratory rate 28 /min Phuc Martines DO Work Phone: [facility] 03-13-2024 12:59-0400 SaO2% (BldA) [Mass fraction] 91 % Phuc Martines DO Work Phone: [facility] 03-13-2024 12:59-0400 Systolic blood pressure 158 mm[Hg] Phuc Martines DO Work Phone: [facility] 01-29-2024 13:30-0400 Body temperature 97.9 [degF] Srikanth Estrada APRN.NEWSSTAND VENDOR Work Phone: [facility] 01-29-2024 13:30-0400 Body weight 118.4 kg Srikanth Estrada APRN.NEWSSTAND VENDOR Work Phone: [facility] 01-29-2024 13:30-0400 Diastolic blood pressure 68 mm[Hg] Srikanth Estrada APRN.NEWSSTAND VENDOR Work Phone: [facility] 01-29-2024 13:30-0400 Heart rate 94 /min Srikanth Estrada ACCURACY EXPERT.NEWSSTAND VENDOR Work Phone: [facility] 01-29-2024 13:30-0400 Respiratory rate 18 /min Srikanth Estrada ACCURACY EXPERT.NEWSSTAND VENDOR Work Phone: [facility] 01-29-2024 13:30-0400 SaO2% (BldA) [Mass fraction] 93 % Srikanth Estrada ACCURACY EXPERT.NEWSSTAND VENDOR Work Phone: [facility] 01-29-2024 13:30-0400 Systolic blood pressure 112 mm[Hg] Srikanth Estrada ACCURACY EXPERT.NEWSSTAND VENDOR Work Phone: [facility] 08-14-2023 10:19-0400 Body temperature 97 [degF] Phuc Martines DO Work Phone: [facility] 08-14-2023 10:19-0400 Body weight 120.2 kg Phuc Martines DO Work Phone: [facility] 08-14-2023 10:19-0400 Diastolic blood pressure 70 mm[Hg] Phuc Martines DO Work Phone: [facility] 08-14-2023 10:19-0400 Heart rate 88 /min Phuc Martines DO Work Phone: [facility] 08-14-2023 10:19-0400 Respiratory rate 20 /min Phuc Martines DO Work Phone: [facility] 08-14-2023 10:19-0400 Systolic blood pressure 120 mm[Hg] Phuc Martines DO Work Phone: [facility] 06-13-2023 12:58-0400 Body weight 120.66 kg Pulm Wstr Work Phone: [facility] 06-13-2023 12:58-0400 Heart rate 102 /min Pulm Wstr Work Phone: [facility] 06-13-2023 12:58-0400 Respiratory rate 16 /min Pulm Wstr Work Phone: [facility] 06-13-2023 12:58-0400 SaO2% (BldA) [Mass fraction] 94 % Pulm Wstr Work Phone: [facility] 06-13-2023 12:53-0400 Diastolic blood pressure 86 mm[Hg] Hodan Mara PA-C Work Phone: [facility] 06-13-2023 12:53-0400 SaO2% (BldA) [Mass fraction] 80 % Hodan Mara PA-C Work Phone: [facility] 06-13-2023 12:53-0400 Systolic blood pressure 144 mm[Hg] Hodan Mara PA-C Work Phone: [facility] 09-28-2022 12:12-0500 Body temperature 99 [degF] Pratibha Fernando ACCURACY EXPERT.NEWSSTAND VENDOR Work Phone: [facility] 09-28-2022 12:12-0500 Body weight 116.3 kg Pratibha Fernando ACCURACY EXPERT.NEWSSTAND VENDOR Work Phone: [facility] 09-28-2022 12:12-0500 Diastolic blood pressure 94 mm[Hg] Pratibha Fernando ACCURACY EXPERT.NEWSSTAND VENDOR Work Phone: [facility] 09-28-2022 12:12-0500 Heart rate 99 /min Pratibha Fernando ACCURACY EXPERT.NEWSSTAND VENDOR Work Phone: [facility] 09-28-2022 12:12-0500 Respiratory rate 20 /min Pratibha Fernando ACCURACY EXPERT.NEWSSTAND VENDOR Work Phone: [facility] 09-28-2022 12:12-0500 SaO2% (BldA) [Mass fraction] 94 % Pratibha Fernando ACCURACY EXPERT.NEWSSTAND VENDOR Work Phone: [facility] 09-28-2022 12:12-0500 Systolic blood pressure 142 mm[Hg] Pratibha Fernando ACCURACY EXPERT.NEWSSTAND VENDOR Work Phone: [facility] 08-01-2022 10:17-0400 Body temperature 98.4 [degF] Phuc Martines DO Work Phone: [facility] 08-01-2022 10:17-0400 Body weight 117.48 kg Phuc Martines DO Work Phone: [facility] 08-01-2022 10:17-0400 Diastolic blood pressure 60 mm[Hg] Phuc Martines DO Work Phone: [facility] 08-01-2022 10:17-0400 Heart rate 88 /min Phuc Martines DO Work Phone: [facility] 08-01-2022 10:17-0400 Respiratory rate 24 /min Phuc Martines DO Work Phone: [facility] 08-01-2022 10:17-0400 SaO2% (BldA) [Mass fraction] 88 % Phuc Martines DO Work Phone: [facility] 08-01-2022 10:17-0400 Systolic blood pressure 136 mm[Hg] Phuc Martines DO Work Phone: [facility] 03-16-2022 09:33-0400 Body height 164.5 cm Respiratory Wstr Work Phone: [facility] 03-16-2022 09:33-0400 Body weight 114.76 kg Respiratory Wstr Work Phone: [facility] 03-16-2022 09:33-0400 Heart rate 93 /min Respiratory Wstr Work Phone: [facility] 03-16-2022 09:33-0400 Respiratory rate 12 /min Respiratory Wstr Work Phone: [facility] 03-16-2022 09:33-0400 SaO2% (BldA) [Mass fraction] 94 % Respiratory Wstr Work Phone: [facility] 03-16-2022 09:31-0400 Body weight 114.76 kg Hodan Christine PA-C Work Phone: [facility] 03-16-2022 09:31-0400 Diastolic blood pressure 86 mm[Hg] Hodan Christine PA-C Work Phone: [facility] 03-16-2022 09:31-0400 Heart rate 93 /min Hodan Mara PA-C Work Phone: [facility] 03-16-2022 09:31-0400 Respiratory rate 12 /min Hodan Mara PA-C Work Phone: [facility] 03-16-2022 09:31-0400 SaO2% (BldA) [Mass fraction] 96 % Hodan Mara PA-C Work Phone: [facility] 03-16-2022 09:31-0400 Systolic blood pressure 138 mm[Hg] Hodan Mara PA-C Work Phone: [facility] 02-09-2022 12:49-0400 Body weight 114.31 kg Hodan Mara PA-C Work Phone: [facility] 02-09-2022 12:49-0400 Diastolic blood pressure 88 mm[Hg] Hodan Mara PA-C Work Phone: [facility] 02-09-2022 12:49-0400 Heart rate 102 /min Hodan Mara PA-C Work Phone: [facility] 02-09-2022 12:49-0400 Respiratory rate 20 /min Hodan Mara PA-C Work Phone: [facility] 02-09-2022 12:49-0400 SaO2% (BldA) [Mass fraction] 86 % Hodan Mara PA-C Work Phone: [facility] 02-09-2022 12:49-0400 Systolic blood pressure 140 mm[Hg] Hodan Mara PA-C Work Phone: [facility] 01-30-2022 08:59-0400 Body temperature 97.59 [degF] Phuc Martines DO Work Phone: [facility] 01-30-2022 08:59-0400 Body weight 115.21 kg Phuc Martines DO Work Phone: [facility] 01-30-2022 08:59-0400 Diastolic blood pressure 74 mm[Hg] Hpuc Martines DO Work Phone: [facility] 01-30-2022 08:59-0400 Heart rate 104 /min Phuc Martines DO Work Phone: [facility] 01-30-2022 08:59-0400 Respiratory rate 20 /min Phuc Martines DO Work Phone: [facility] 01-30-2022 08:59-0400 SaO2% (BldA) [Mass fraction] 88 % Phuc Martines DO Work Phone: [facility] 01-30-2022 08:59-0400 Systolic blood pressure 150 mm[Hg] Phuc Martines DO Work Phone: [facility] Encounters Encounter Date Encounter Type Care Provider Facility Start: 05-07-2025 End: 05-07-[address] Phuc Martines DO Work Phone: [facility] Start: 05-07-2025 End: 05-07-2025 Patient encounter procedure Kim Price NP- -[facility] Work Phone: Start: 04-27-2025 Non-patient / Non-visit Dr. George Polanco MD -[facility] Work Phone: Start: 04-26-2025 Non-patient / [facility] Work [facility] Start: 04-25-2025 Non-patient / Non-visit Dr. George Polanco MD [facility] Work Phone: Start: 04-24-2025 Non-patient / Non-[facility] Work Phone: Start: 04-23-2025 ambulatory Virginia Henriquez Facility :[facility] Start: 04-23-2025 End: 04-27-2025 Evaluation and management of inpatient Dr. Virginia Henriquez MD -[facility] Work Phone: Start: 04-23-2025 End: 04-23-2025 Office outpatient visit 40 minutes Terrie Carson JAKI.NEWSSTAND VENDOR Work Phone: [facility] Comment on above: Acute confusion (Blanca patrizia Dx); Atrial flutter, unspecified type (HCC); Tachycardia; Stage 3 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); Congestive heart failure, unspecified HF chronicity, unspecified heart failure type (HCC); Hypersomnia; Hives; Abnormal pulse oximetry Start: 04-23-2025 End: 04-23-2025 ambulatory TERRIE CARSON Facility:[facility] Start: 04-22-2025 End: 04-22-2025 Follow-up encounter Anais LYNN Work Phone: [facility] Comment on above: Results Start: 04-20-2025 End: 04-20-2025 Patient encounter procedure Damon Eugene APRN.NEWSSTAND VENDOR Work Phone: [facility] Comment on above: Acute cystitis with hematuria; Candidal intertrigo; Confusion Start: 04-20-2025 End: 04-20-2025 ambulatory PHUC MARTINES Facility:[facility] Start: 04-06-2025 End: 04-06-2025 ambulatory Lisa Goodman APRN.NEWSSTAND VENDOR Work Phone: [facility] Medicine Comment on above: Sleep Study Start: 03-31-2025 End: 03-31-2025 Patient encounter procedure Janette Damon APRN.NEWSSTAND VENDOR Work Phone: [facility] Comment on above: Essential (primary) hypertension; Atrial flutter, unspecified type (HCC) Start: 03-31-2025 End: 03-31-2025 ambulatory JANETTE BENEDICTLOGCARLEEN Facility:[facility] Start: 03-30-2025 End: 03-30-[address] Phuc Martines DO Work Phone: [facility] Work Phone: Start: 03-30-2025 End: 03-30-[address] Bryan Elena MD -[facility] Work Phone: Start: 03-10-2025 End: 03-10-2025 Office outpatient visit 15 minutes Lisa Goodman ACCURACY EXPERT.NEWSSTAND VENDOR Work Phone: [facility] Comment on above: Daytime sleepiness ( Primary Dx); Stage 3 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); Chronic respiratory failure with hypoxia (HCC) Start: 03-10-2025 End: 03-10-2025 ambulatory LISA GOODMAN Facility:[facility] Start: 03-01-2025 End: 03-01-2025 Patient encounter procedure Janette Damon ACCURACY EXPERT.NEWSSTAND VENDOR Work Phone: [facility] Comment on above: Hospital discharge f ollow-up (Primary Dx); Atrial flutter, unspecified type (HCC); Congestive heart failure, unspecified HF chronicity, unspecified heart failure type (HCC); Stage 3 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); Oxygen dependent; Essential hypertension Start: 03-01-2025 End: 03-01-2025 ambulatory JANETTE DAMON Facility:[facility] Start: 02-23-2025 Non-patient / Non-visit Dr. Yee Jones MD -[facility] Work Phone: Start: 02-22-2025 Non-patient / Non-visit Dr. Yee Jones MD [facility] Work Phone: Start: 02-21-2025 Non-patient / Non-[facility] Work [facility] Start: 02-20-2025 ambulatory Phuc Allen y:[facility] Start: 02-20-2025 Non-patient / Non-visit Dr. Mercy smith MD [facility] Start: 02-20-2025 Non-patient / Non-visit Dr. Claudia Valerio DO [facility] Work Phone: Start: 02-19-2025 ambulatory Kym Norton Facility: [place] Start: 02-19-2025 End: 02-23-2025 Evaluation and management of inpatient Dr. Yee Jones MD -[facility] Work Phone: Start: 01-26-2025 End: 01-26-2025 Follow-up encounter Maricruz Camp APRN.NEWSSTAND VENDOR Work Phone: Pulmonary Medicine Start: 01-25-2025 End: 01-25-2025 Patient encounter procedure Maricruz Camp APRN.NEWSSTAND VENDOR Work Phone: Pulmonary Medicine Comment on above: Multiple lung nodule s (Primary Dx); Former tobacco use Start: 01-25-2025 End: 01-25-2025 ambulatory MARICRUZ CAMP Facility:[facility] Start: 01-25-2025 End: 01-25-2025 Subsequent hospital visit by physician [facility] (I-Stat) Work Phone: Cat Scan Start: 01-21-2025 End: 03-23-2025 Follow-up encounter Pratibha King APRN.NEWSSTAND VENDOR Work Phone: [facility] [place] Start: 01-20-2025 End: 01-20-2025 ambulatory PHUC L MARTINES Facility:[facility] Start: 01-20-2025 End: 01-20-2025 Patient encounter procedure Phuc L Martines DO Work Phone: [facility] [place] Comment on above: Medicare annual well ness visit, subsequent (Primary Dx); Hair thinning; Fatigue, unspecified type; Impaired fasting glucose; Dyslipidemia; Vitamin D deficiency; Stage 3 severe COPD by GOLD classification ([facility]); Essential hypertension; Oxygen dependent; Morbid obesity with BMI of 45.0-49.9, adult ([facility]) Start: 01-13-2025 End: 01-13-2025 ambulatory PHUC L MARTINES Facility:[facility] Start: 12-25-2024 End: 12-25-2024 ambulatory LISA GOODMAN Facility:[facility] Start: 12-25-2024 End: 12-25-2024 Office outpatient visit 15 minutes Lisa Goodman APRN.NEWSSTAND VENDOR Work Phone: Pulmonary Medicine Comment on above: Stage 3 severe COPD by GOLD classification ([facility]) (Primary Dx); Chronic respiratory failure with hypoxia ([facility]); Former cigarette smoker Start: 12-03-2024 End: 12-03-2024 ambulatory PHUC L MARTINES Facility:[facility] Start: 12-03-2024 End: 12-03-2024 Subsequent hospital visit by physician Screen Mammo [facility] Mammogram Comment on above: Encounter for screen ing mammogram for breast cancer [Z12.31] Start: 11-27-2024 End: 11-27-2024 Refill Phuc Osmany Martines DO Work Phone: [facility] Comment on above: Refill Request; Lab Orders Start: 11-11-2024 End: 11-11-2024 ambulatory Julianne Donald MA [facility] Start: 11-11-2024 End: 11-11-2024 Patient encounter procedure Julianne Donald MA [facility] Comment on above: Population Health Na vigation Outreach ([facility] [place] [facility] Start: 11-05-2024 End: 11-05-2024 ambulatory Patricia WATKINS Pulmonary Medicine Start: 10-21-2024 End: 10-26-2024 ambulatory Phuc Martines DO Work Phone: Internal Medicine [facility] Start: 10-20-2024 End: 10-20-2024 ambulatory Maricruz Camp APRN.NEWSSTAND VENDOR Work Phone: Pulmonary Medicine Start: 10-19-2024 End: 10-19-2024 E-mail encounter from caregiver Hodan Christine PA-C Work Phone: Pulmonary Medicine Start: 10-19-2024 End: 10-19-2024 Patient encounter procedure Maricruz Camp APRN.NEWSSTAND VENDOR Work Phone: Pulmonary Medicine Comment on above: Multiple lung nodule s (Primary Dx); Encounter for screening for lung cancer; Former tobacco use Start: 10-19-2024 End: 10-19-2024 ambulatory Hodan Christine PA-C Work Phone: Pulmonary Medicine Comment on above: check in Start: 10-19-2024 End: 10-19-2024 Subsequent hospital visit by physician [facility] (I-Stat) Work Phone: Cat Scan Comment on above: Former cigarette smo ker [Z87.891] Start: 08-13-2024 End: 08-13-2024 ambulatory Phuc Martines DO Work Phone: [facility] [place] Comment on above: Pap and Mammo Start: 07-17-2024 End: 07-17-2024 Refill Vicky Duong JAKI.NEWSSTAND VENDOR Work Phone: [facility] [place] Comment on above: Refill Request Start: 06-26-2024 End: 06-26-2024 ambulatory DIANA GONZALEZ Facility:[facility] Start: 06-26-2024 End: 06-26-2024 Patient encounter procedure Diana Gonzalez MD Work Phone: Pulmonary Medicine Comment on above: Stage 3 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) (Primary Dx); Chronic hypoxemic respiratory failure (HCC); Former cigarette smoker; Morbid obesity (HCC) Start: 05-06-2024 End: 05-06-2024 Emergency department patient visit Phuc Martines Facility:[facility] Start: 04-26-2024 End: 04-26-2024 Patient encounter procedure Damon Eugene APRN.NEWSSTAND VENDOR Work Phone: [facility] Comment on above: Skin infection (Prim luna Dx) Start: 03-30-2024 Telephone encounter Phuc robins DO Work Phone: [facility] [place] Comment on above: Patient Update Start: 03-13-2024 End: 03-13-2024 Patient encounter procedure Phuc Martines DO Work Phone: [facility] Comment on above: Acute bronchitis wit h chronic obstructive pulmonary disease (COPD) (HCC) (HCC) (Primary Dx); Chronic obstructive pulmonary disease, unspecified COPD type (HCC); Acute otitis media, left; Dyslipidemia; Impaired fasting glucose; Vitamin D deficiency; Essential hypertension; Stage 3 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); Fatigue, unspecified type; Oxygen dependent; Morbid obesity with BMI of 45.0-49.9, adult (HCC); Thoracic aortic ectasia (HCC) Start: 02-12-2024 Refill Phuc acban DO Work Phone: [facility] Comment on above: Refill Request Start: 01-29-2024 End: 01-29-2024 Patient encounter procedure Srikanth Estrada NEWSSTAND VENDOR Work Phone: [facility] Comment on above: Skin infection (Prim luna Dx) Start: 12-26-2023 End: 12-26-2023 Patient encounter procedure Diana Gonzalez MD Work Phone: Pulmonary Medicine Comment on above: Stage 3 severe COPD by GOLD classification ([facility]) (Primary Dx); Chronic respiratory failure with hypoxia (HCC); Morbid obesity with BMI of 45.0-49.9, adult (HCC); Lung nodules Start: 12-24-2023 Telephone encounter Phuc robins DO Work Phone: [facility] [place] Comment on above: Orders Start: 10-08-2023 End: 10-08-2023 Subsequent hospital visit by physician [facility] (I-Stat) Work Phone: Cat Scan Comment on above: Former cigarette smo ker [Z87.891] Start: 09-17-2023 End: 09-17-2023 Subsequent hospital visit by physician Screen Mammo [facility] Mammogram Comment on above: Encounter for screen ing mammogram for malignant neoplasm of breast [Z12.31] Start: 08-16-2023 Telephone encounter Phuc robins DO Work Phone: [facility] [place] Comment on above: Results Start: 08-14-2023 End: 08-14-2023 Patient encounter procedure Phuc Martines DO Work Phone: [facility] [place] Comment on above: Essential hypertensi on (Primary Dx); Need for influenza vaccination; Encounter for screening mammogram for malignant neoplasm of breast; Need for RSV immunization; Vitamin D deficiency; Impaired fasting glucose; Stage 3 severe COPD by GOLD classification ([facility]); Oxygen dependent; Fatigue, unspecified type; Rash of foot; Dyslipidemia Start: 07-28-2023 Refill Phuc caban DO Work Phone: [facility] [place] Comment on above: Refill Request Start: 06-13-2023 End: 06-13-2023 ambulatory [facility] Work Phone: [facility] Comment on above: Spirometry Start: 06-13-2023 End: 06-13-2023 Patient encounter [facility] Work Phone: [facility] Comment on above: COPD, severe (HCC) ( Primary Dx); Chronic hypoxemic respiratory failure (HCC); Former cigarette smoker; Morbid obesity (HCC) Start: 05-30-2023 Telephone encounter Diana Gonzalez MD Work Phone: Pulmonary Medicine Comment on above: Patient Question (Adrián chan appt) Start: 03-06-2023 End: 03-06-2023 Subsequent hospital visit by physician [facility] Work Phone: Radiology Comment on above: Cyst of spleen [D73. 4] Start: 12-04-2022 Refill Phuc Amaro son DO Work Phone: [facility] [place] Comment on above: Refill Request Start: 10-10-2022 End: 10-10-2022 ambulatory Pulm Lab [facility] Work Phone: [facility] Comment on above: Arrived Medicare corresponde nce Start: 10-10-2022 End: 10-10-2022 Patient encounter procedure Pulm Lab [facility] Work Phone: [facility] Start: 09-28-2022 End: 09-28-2022 Subsequent hospital visit by physician [facility] Work Phone: Radiology Comment on above: COVID [U07.1] Start: 09-28-2022 End: 09-28-2022 Patient encounter procedure Pratibha King APRN.CNP Work Phone: [facility] [place] Comment on above: COVID (Primary Dx); Chronic obstructive pulmonary disease, unspecified COPD type (HCC); Bacterial sinusitis; Oxygen dependent Start: 09-12-2022 Documentation procedure Mammog angel Coordinator [facility] Start: 09-12-2022 Letter encounter Mammography Coordinator [facility] Start: 09-12-2022 Telephone encounter Phuc robins DO Work Phone: Family [facility] [place] Comment on above: Forms Start: 09-11-2022 End: 09-11-2022 Subsequent hospital visit by physician Screen Mammo [facility] Mammogram Comment on above: Encounter for screen ing mammogram for breast cancer [Z12.31] Start: 09-06-2022 Telephone encounter Pratibha Ma ACCURACY EXPERT.NEWSSTAND VENDOR Work Phone: Family Medicine [place] Comment on above: Results; Scheduling Start: 09-05-2022 ambulatory Phuc caban DO Work Phone: [facility] [place] Start: 09-03-2022 End: 09-03-2022 Subsequent hospital visit by physician Us [facility] Work Phone: Radiology Comment on above: Cyst of spleen [D73. 4] Start: 08-30-2022 Telephone encounter Pratibha Ma ACCURACY EXPERT.NEWSSTAND VENDOR Work Phone: [facility] [place] Comment on above: Results Start: 08-29-2022 End: 08-29-2022 Subsequent hospital visit by physician [facility] (I-Stat) Work Phone: Cat Scan Comment on above: Chronic obstructive pulmonary disease, unspecified COPD type (HCC) [J44.9] Start: 08-03-2022 Telephone encounter Phuc robins DO Work Phone: Family [facility] [place] Comment on above: Forms Start: 08-01-2022 End: 08-01-2022 Patient encounter procedure Phuc Martines DO Work Phone: [facility] [place] Comment on above: Chronic obstructive pulmonary disease, [...] m caregiver Hodan VIVEROSC Work Phone: [place] [facility] Start: 03-16-2022 End: 03-16-2022 ambulatory Respiratory Therapist [facility] Work Phone: Pulmonary Medicine Comment on above: Spirometry Start: 03-16-2022 End: 03-16-2022 Patient encounter procedure Respiratory Therapist [facility] Work Phone: [facility] Comment on above: Chronic obstructive pulmonary disease, unspecified COPD type (HCC) (Primary Dx); Chronic hypoxemic respiratory failure (HCC); Dyspnea and respiratory abnormalities; Former smoker Start: 03-07-2022 Refill Phuc caban DO Work Phone: [facility] [place] Comment on above: Refill Request Start: 02-09-2022 End: 02-09-2022 Patient encounter procedure Hodan VIVEROSC Work Phone: Pulmonary Medicine Comment on above: Chronic obstructive pulmonary disease, unspecified COPD type (HCC) (Primary Dx); Dyspnea and respiratory abnormalities Start: 01-30-2022 End: 01-30-2022 Patient encounter procedure Phuc Martines DO Work Phone: [facility] [place] Comment on above: Chronic obstructive pulmonary disease, unspecified COPD type (HCC) (Primary Dx); Essential hypertension; Impaired fasting glucose; Dyslipidemia; Vitamin D deficiency; Lightheaded Start: 01-10-2021 End: 01-10-2021 Subsequent hospital visit by physician Xr [facility] [place] Work Phone: Radiology Comment on above: Acute gout involving toe of right foot, unspecified cause [M10.9] Start: 05-19-2019 End: 10-13-2019 Physical examination Phuc Martines DO Work Phone: [facility] Start: 09-10-2018 End: 09-10-2018 Patient encounter procedure [facility] Start: 09-05-2018 Encounter for other preprocedural examination [facility] Start: 09-05-2018 End: 09-05-2018 Patient encounter procedure [facility] Start: 11-09-2016 End: 10-13-2019 Patient encounter status Phuc Martines DO Work Phone: [facility] Procedures Date Procedure Procedure Detail Performing Clinician Start: 04-26-[address] Phuc Martines DO Work Phone: Start: 04-24-[address] Phuc Martines DO Work Phone: Start: 04-23-2025 Urnls dip stick/tabl et reagent auto microscopy Dr. Phuc Martines DO Work Phone: Start: 04-23-2025 CT of head without contrast Dr. Phuc Martines DO Work Phone: Start: 04-23-[address] Phuc Martines DO Work Phone: Start: 04-23-2025 Serum inorganic phos phate measurement Dr. Phuc Martines DO Work Phone: Start: 04-23-2025 X-ray of chest, PA a nd lateral views Dr. Phuc Martines DO Work Phone: Start: 04-20-2025 Urnls dip stick/tabl et rgnt [...] 01-25-2025 Ct thorax w/o contra st material Maricruz Marblehead ACCURACY EXPERT.NEWSSTAND VENDOR Work Phone: Start: 01-13-2025 Lipid 1996 panel - S joaquin or Plasma Phuc Martines DO Work Phone: Start: 12-03-2024 Screening digital br east tomosynthesis bi Bulk Order Provider Start: 10-19-2024 CT [facility] Maricruz Camp ACCURACY EXPERT.NEWSSTAND VENDOR Work Phone: Start: 03-13-2024 Adult depression scr eening assessment Diana Gonzalez MD Work Phone: Start: 03-11-2024 Lipid 1996 panel - S joaquin or Plasma Phuc Martines DO Work Phone: Start: 09-17-2023 Screening mammograph y bi 2-view breast inc cad Phcu Martines DO Work Phone: Start: 08-14-2023 INFLUENZA VACCINE, P RSV FREE, AGE 65+ YR, HIGH DOSE, QUADRIVALENT (FLUZONE HIGH-DOSE) Phuc Martines DO Work Phone: Start: 08-14-2023 Lipid 1995 panel - S joaquin or Plasma Phuc Martines DO Work Phone: Start: 06-13-2023 Noninvasive ear/puls e oximetry multiple deter Hodan Christine PA-C Work Phone: Start: 05-10-2023 Us abdominal real ti me w/image limited Pratibha King ACCURACY EXPERT.NEWSSTAND VENDOR Work Phone: Start: 10-10-2022 Noninvasive ear/puls e oximetry multiple deter Phuc Ceron Martines DO Work Phone: Start: 09-28-2022 Radiologic exam ches t 2 views Pratibha King ACCURACY EXPERT.NEWSSTAND VENDOR Work Phone: Start: 09-11-2022 End: 09-11-2022 Mammography Bulk Order Provider Start: 09-03-2022 Us abdominal real ti me w/image limited Pratibha King ACCURACY EXPERT.NEWSSTAND VENDOR Work Phone: Start: 08-29-2022 Ct thorax w/o contra st material Phuc Osmany Martines DO Work Phone: Start: 08-01-2022 INFLUENZA VACCINE QUADRIVALENT 6 MO - 64 YRS IM Phuc Osmany Martines DO Work Phone: Start: 07-30-2022 Lipid 1996 panel - S joaquin or [...] Radex foot complete minimum 3 views Tierra VIVEROSC Work Phone: Start: 09-02-2020 Mammography Phuc Gar rison DO Work Phone: Start: 09-10-2018 Colonoscopy Phuc Gar rison DO Work Phone: Plan of Treatment Date Care Activity Detail Author Start: 01-13-2030 Lipid panel Lipid Screening [facility] Start: 03-11-2029 Lipid panel Lipid Screening [facility] Start: 09-10-2028 Colonoscopy COLONOSCOPY [facility] Start: 09-10-2028 COLORECTAL CANCER SCREENING COLORECTAL CANCER SCREENING [facility] Start: 09-10-2028 Screening for malign ant neoplasm of colon [facility] Start: 08-14-2028 Lipid 1996 panel - S joaquin or Plasma Lipid Screening [facility] Start: 08-14-2028 Lipid panel Lipid Screening [facility] Start: 01-14-2028 Diabetes Screening Diabetes Screenin g [facility] Start: 07-30-2027 Lipid 1996 panel - S joaquin or Plasma Lipid Screening [facility] Start: 07-30-2027 LIPID SCREEN LIPID SCREEN [facility] Start: 03-11-2027 Diabetes Screening Diabetes Screenin g [facility] Start: 01-26-2027 LIPID SCREEN LIPID SCREEN [facility] Start: 08-14-2026 [facility] Start: 04-23-2026 Annual PCP Team Crabber humza Disease Visit Annual PCP Team Chronic Disease Visit [facility] Start: 03-31-2026 Annual PCP Team Crabber humza Disease Visit Annual PCP Team Chronic Disease Visit [facility] Start: 03-01-2026 Annual PCP Team Crabber humza Disease Visit Annual PCP Team Chronic Disease Visit [facility] Start: 03-01-2026 BP Controlled (<130/80) BP Controlle d (<130/80) [facility] Start: 01-20-2026 Annual PCP Team Crabber humza Disease Visit Annual PCP Team Chronic Disease Visit [facility] Start: 01-20-2026 Medicare Annual Well ness Visit Medicare Annual Wellness Visit [facility] Start: 12-03-2025 Screening for malign ant neoplasm of breast Mammogram Screening [facility] Start: 11-09-2025 Urine microalbumin profile [facility] Start: 09-27-2025 End: 09-27-2025 Patient encounter procedure 09/27/2025 8:20 AM EST Office Visit Cardiology [address] [place] [address] Toribio Robertson MD [address] [place], [place] [id number] Dx: Atrial flutter, unspecified type (HCC) [I48.92]; Congestive heart failure, unspecified HF chronicity, unspecified heart failure type (HCC) [I50.9] Cardiology Comment on above: Dx: Atrial flutter, unspecified type (HCC) [I48.92]; Congestive heart failure, unspecified HF chronicity, unspecified heart failure type (HCC) [I50.9] Start: 09-02-2025 HPV TESTING HPV TESTING [facility] Start: 09-02-2025 PAP TESTING PAP TESTING [facility] Start: 07-30-2025 DIABETES SCREEN DIABETES SCREEN [facility] Start: 07-30-2025 Diabetes Screening Diabetes Screenin g [facility] Start: 07-29-2025 End: 07-29-2025 Patient encounter procedure Cat Scan Comment on above: 6 month LDCT 6 month LCS Start: 07-23-2025 End: 07-23-2025 Patient encounter procedure 07/23/2025 12:00 PM EDT Office Visit [facility] [place] [address] [place] [address] Phuc Martines DO [address] [place] [address] 6 month follow up [facility] [place] Comment on above: 6 month follow up Start: 06-22-2025 End: 06-22-2025 Patient encounter procedure Pulmonary Medicine Comment on above: 6 month f/u Start: 05-17-2025 End: 05-17-2025 Patient encounter procedure 05/17/2025 9:00 PM EDT Office Visit Neurology [address] [place] [address] Daytime sleepiness [R40.0] Neurology Comment on above: Daytime sleepiness [ R40.0] Start: 04-27-[address]25 Patient discharge [facility] Start: 04-26-2025 Referral to occupati onal therapist [facility] Start: 04-26-2025 Referral to service [facility] Start: 04-25-2025 Care planning and pr oblem solving actions [facility] Start: 04-24-2025 Care planning and pr oblem solving actions [facility] Start: 04-23-2025 Following clinical pathway protocol [facility] Start: 04-23-2025 Assessment of risk o f venous thromboembolism [facility] Start: 04-23-2025 Inhalation therapy procedure [facility] Start: 04-23-2025 Insertion of cathete r into peripheral vein [facility] Start: 04-23-2025 Introduction of urin luna catheter [facility] Start: 04-23-2025 Measuring intake and output [facility] Start: 04-23-2025 Oxygen therapy [facility] Start: 04-23-2025 Providing care accor ding to standard [facility] Start: 04-23-2025 Provision of activit y privileges [facility] Start: 04-23-2025 Referral to service [facility] Start: 04-23-2025 [facility] Start: 04-23-2025 Care planning and pr oblem solving actions [facility] Start: 04-23-2025 Respiratory pathogen s DNA and RNA panel - Respiratory specimen by RENETTA with probe detection [facility] Start: 04-23-2025 Verification routine [facility] Start: 04-23-2025 Admission procedure [facility] Start: 04-23-2025 Hospital admission, emergency, from emergency room, medical nature [facility] Start: 04-23-2025 Serum inorganic phos phate measurement [facility] Start: 04-23-2025 [facility] Start: 04-23-2025 End: 04-23-2025 Patient encounter procedure 04/23/2025 3:00 PM EDT Office Visit Family [address] [address] Terrie Carson APRN.NEWSSTAND VENDOR [address] [place], [place] [id number] increased confussion [facility] [place] Comment on above: increased confussion Start: 04-23-2025 [facility] Start: 03-31-2025 End: 03-31-2025 Patient encounter procedure 03/31/2025 1:00 PM EDT Office Visit Family [address] [id number] Janette Damon APRN.NEWSSTAND VENDOR [address] [place] [address] BP follow up [facility] [place] Comment on above: BP follow up Start: 03-30-2025 Patient referral [facility] Work Phone: Start: 03-30-2025 Evaluation of diagno stic study results [facility] Start: 03-13-2025 Annual PCP Team Crabber humza Disease Visit Annual PCP Team Chronic Disease Visit [facility] Start: 03-13-2025 Anxiety Screening Anxiety Screening [facility] Start: 03-13-2025 Depression Screening [facility] Start: 03-10-2025 End: 03-10-2025 Patient encounter procedure 03/10/2025 1:00 PM EDT Office Visit Pulmonary Medicine [address] [place] [address] Lisa Goodman APRN.NEWSSTAND VENDOR [address] [place] [address] recent hospital stay Pulmonary Medicine Comment on above: recent hospital stay Start: 02-23-2025 Patient discharge [facility] Start: 02-20-2025 Vital signs measurements [facility] Start: 02-20-2025 Continuous pulse oximetry [facility] Start: 02-20-2025 Vital signs measurements [facility] Start: 02-20-2025 Vital signs measurements [facility] Start: 02-20-2025 Care planning and pr oblem solving actions [facility] Start: 02-20-2025 Vital signs measurements [facility] Start: 02-20-2025 Vital signs measurements [facility] Start: 02-20-2025 Vital signs measurements [facility] Start: 02-20-2025 Vital signs measurements [facility] Start: 02-20-2025 Dual pressure sponta neous ventilation support [facility] Start: 02-20-2025 Physiotherapy of chest [facility] Start: 02-19-2025 Vital signs measurements [facility] Start: 02-19-2025 Vital signs measurements [facility] Start: 02-19-2025 Vital signs measurements [facility] Start: 02-19-2025 Application of elast ic bandage [facility] Start: 02-19-2025 Assessment of risk o f venous thromboembolism [facility] Start: 02-19-2025 Bedrest [facility] Start: 02-19-2025 Elevation of affecte d extremity [facility] Start: 02-19-2025 Elevation of head of bed [facility] Start: 02-19-2025 Insertion of cathete r into peripheral vein [facility] Start: 02-19-2025 Measuring intake and output [facility] Start: 02-19-2025 Notification of physician [facility] Start: 02-19-2025 Oxygen therapy [facility] Start: 02-19-[address] Patient [address] [facility] Start: 02-19-2025 Providing care accor ding to standard [facility] Start: 02-19-2025 Referral to service [facility] Start: 02-19-2025 [facility] Start: 02-19-2025 Vital signs measurements [facility] Start: 02-19-2025 Following clinical pathway protocol [facility] Start: 02-19-2025 Admission procedure [facility] Start: 02-19-2025 End: 02-19-2025 [facility] Start: 02-19-2025 Blood culture Blood Culture [facility] Start: 02-19-2025 Inhalation therapy procedure [facility] Start: 02-17-2025 End: 02-17-2025 Patient encounter procedure 02/17/2025 4:20 PM EDT Office Visit [facility] [address] [place] [address] Phuc Martines DO [address] [place] [address] FOLLOW UP [facility] Comment on above: FOLLOW UP Start: 01-28-2025 BP Controlled (<130/80) BP Controlle d (<130/80) [facility] Start: 01-26-2025 DIABETES SCREEN DIABETES SCREEN [facility] Start: 01-25-2025 End: 01-25-2025 Patient encounter procedure Cat Scan Comment on above: LDCT [facility] Start: 01-20-2025 End: 01-20-2025 Patient encounter procedure 01/20/2025 3:00 PM EDT Office Visit [facility] [address] [place] [address] Phuc Martines DO [address] [place] [address] FOLLOW UP [facility] Comment on above: FOLLOW UP Start: 01-20-2025 End: 04-21-2025 Cobalamin (Vitamin B12) [Mass/volume] in Serum or Plasma [facility] Comment on above: Expected: 01/20/2025 , Expires: 04/21/2025 Start: 01-20-2025 End: 04-21-2025 Folate [Mass/volume] in Serum or Plasma [facility] Comment on above: Expected: 01/20/2025 , Expires: 04/21/2025 Start: 01-20-2025 End: 04-21-2025 Iron and Iron binding capacity panel - Serum or Plasma [facility] Comment on above: Expected: 01/20/2025 , Expires: 04/21/2025 Start: 01-20-2025 End: 04-21-2025 Thyrotropin [Units/volume] in Serum or Plasma [facility] Work Phone: Comment on above: Expected: 01/20/2025 , Expires: 04/21/2025 Start: 01-20-2025 End: 04-21-2025 Thyroxine (T4) free [Mass/volume] in Serum or Plasma [facility] Comment on above: Expected: 01/20/2025 , Expires: 04/21/2025 Start: 01-20-2025 End: 04-21-2025 Triiodothyronine (T3) Free [Mass/volume] in Serum or Plasma [facility] Comment on above: Expected: 01/20/2025 , Expires: 04/21/2025 Start: 12-26-2024 End: 11-18-2025 CT Lung parenchyma WO contrast CT LUNG FOLLOWUP WO IVCON Radiology Routine Expected: 12/26/2024, Expires: 11/18/2025 [facility] Work Phone: Comment on above: Expected: 12/26/2024 , Expires: 11/18/2025 Start: 12-25-2024 End: 12-25-2024 Patient encounter procedure 12/25/2024 11:30 AM EST Office Visit Pulmonary Medicine [address] [place] [address] Lisa Goodman APRN.NEWSSTAND VENDOR [address] [place] [address] 6 MTH F/U COPD [facility] Comment on above: 6 MTH F/U COPD Start: 12-03-2024 End: 12-03-2024 Patient encounter procedure 12/03/2024 11:10 AM EST Appointment Mammogram [address] [place] [address] Encounter for screening mammogram for breast cancer [Z12.31] Mammogram Comment on above: Encounter for screen ing mammogram for breast cancer [Z12.31] Start: 11-27-2024 End: 02-26-2025 CBC W Auto Differential panel - Blood COMPLETE BLOOD COUNT AND DIFFERENTIAL Lab Routine Dyslipidemia Expected: 11/27/2024, Expires: 02/26/2025 [facility] Comment on above: Expected: 11/27/2024 , Expires: 02/26/2025 Start: 11-27-2024 End: 02-26-2025 Comprehensive metabolic 2000 panel - Serum or Plasma COMPREHENSIVE METABOLIC PANEL Lab Routine Dyslipidemia Impaired fasting glucose Expected: 11/27/2024, Expires: 02/26/2025 [facility] Comment on above: Expected: 11/27/2024 , Expires: 02/26/2025 Start: 11-27-2024 End: 02-26-2025 Hemoglobin A1c in Blood HEMOGLOBIN A1C Lab Routine Impaired fasting glucose Expected: 11/27/2024, Expires: 02/26/2025 [facility] Work Phone: Comment on above: Expected: 11/27/2024 , Expires: 02/26/2025 Start: 11-27-2024 End: 02-26-2025 Lipid 1996 panel - Serum or Plasma LIPID PANEL BASIC Lab Routine Dyslipidemia Expected: 11/27/2024, Expires: 02/26/2025 [facility] Comment on above: Expected: 11/27/2024 , Expires: 02/26/2025 Start: 10-28-2024 Advance Directive Discussion Advance Directive Discussion [facility] Start: 10-19-2024 End: 10-19-2024 Patient encounter procedure Cat Scan Comment on above: LUNG SCREENING CT LUNG SCREENING Start: 09-17-[address] [facility] Start: 09-17-2024 Screening for malign ant neoplasm of breast Mammogram Screening [facility] Start: 09-08-2024 End: 09-08-2024 Patient encounter procedure 09/08/2024 10:40 AM EST Office Visit [facility] [address] [place], [place] [phone] Phuc Martines DO [address] [place] [id number] 6 month follow up [facility] Comment on above: 6 month follow up Start: 08-14-2024 Annual PCP Team Crabber humza Disease Visit Annual PCP Team Chronic Disease Visit [facility] Start: 08-14-2024 BP Controlled (<130/80) BP Controlle d (<130/80) [facility] Start: 06-28-2024 Covid-19 Vaccine ( season) Covid-19 Vaccine ( season) [facility] Start: 06-28-2024 Covid-19 Vaccine ( season) Covid-19 Vaccine ( season) [facility] Start: 06-28-2024 Influenza vaccination Influenza Vacc ine (#1) [facility] Start: 06-26-2024 End: 06-26-2024 Patient encounter procedure 06/26/2024 11:45 AM EDT Office Visit Pulmonary Medicine [address] [place] [phone] Diana Gonzalez MD [address] [place] [phone] 6 month f/u [facility]monary Medicine Comment on above: 6 month f/u Start: 04-26-2024 End: 07-26-2024 Bacteria identified in Wound by Culture ABSCESS AND WOUND CULTURE WITH GRAM STAIN Microbiology Routine Skin infection Expected: 04/26/2024, Expires: 07/26/2024 [facility] Work Phone: Comment on above: Expected: 04/26/2024 , Expires: 07/26/2024 Start: 02-07-2024 ANNUAL PCP TEAM HOME HEALTH CLINICIAN HUMZA DISEASE VISIT ANNUAL PCP TEAM CHRONIC DISEASE VISIT [facility] Start: 12-24-2023 End: 03-24-2024 CBC W Auto Differential panel - Blood CBC + DIFF Lab Routine Dyslipidemia Expected: 12/24/2023, Expires: 03/24/2024 [facility] Work Phone: Comment on above: Expected: 12/24/2023 , Expires: 03/24/2024 Start: 12-24-2023 End: 03-24-2024 Comprehensive metabolic 2000 panel - Serum or Plasma COMP METABOLIC PANEL Lab Routine Dyslipidemia Expected: 12/24/2023, Expires: 03/24/2024 [facility] Work Phone: Comment on above: Expected: 12/24/2023 , Expires: 03/24/2024 Start: 12-24-2023 End: 03-24-2024 Hemoglobin A1c in Blood HGB A1C Lab Routine Impaired fasting glucose Expected: 12/24/2023, Expires: 03/24/2024 [facility] Work Phone: Comment on above: Expected: 12/24/2023 , Expires: 03/24/2024 Start: 12-24-2023 End: 03-24-2024 Lipid 1996 panel - Serum or Plasma LIPID PANEL BASIC Lab Routine Dyslipidemia Expected: 12/24/2023, Expires: 03/24/2024 [facility] Work Phone: Comment on above: Expected: 12/24/2023 , Expires: 03/24/2024 Start: 10-28-2023 Advance Directive Discussion Advance Directive Discussion [facility] Start: 10-28-2023 Behavioral Health Screening Behavioral Health Screening [facility] Start: 10-28-2023 Depression Assessment Depression Ass essment [facility] Start: 09-28-2023 ANNUAL PCP TEAM HOME HEALTH CLINICIAN HUMZA DISEASE VISIT ANNUAL PCP TEAM CHRONIC DISEASE VISIT [facility] Start: 09-11-2023 Mammography [facility] Start: 08-29-2023 Influenza vaccination LUNG CANCER SC ADONAY [facility] Start: 08-29-2023 Screening for malign ant neoplasm of lung Lung Cancer Screening [facility] Start: 08-14-2023 End: 11-13-2023 25-hydroxyvitamin D3 [Mass/volume] in Serum or Plasma [facility] Work Phone: Comment on above: Expected: 08/14/2023 , Expires: 11/13/2023 Start: 08-14-2023 End: 11-13-2023 Cobalamin (Vitamin B12) [Mass/volume] in Serum or Plasma [facility] Work Phone: Comment on above: Expected: 08/14/2023 , Expires: 11/13/2023 Start: 08-14-2023 End: 11-13-2023 Comprehensive metabolic 2000 panel - Serum or Plasma [facility] Work Phone: Comment on above: Expected: 08/14/2023 , Expires: 11/13/2023 Start: 08-14-2023 End: 11-13-2023 Hemoglobin A1c in Blood [facility] Work Phone: Comment on above: Expected: 08/14/2023 , Expires: 11/13/2023 Start: 08-14-2023 End: 11-13-2023 Lipid 1996 panel - Serum or Plasma [facility] Work Phone: Comment on above: Expected: 08/14/2023 , Expires: 11/13/2023 Start: 08-14-2023 End: 11-13-2023 Thyrotropin [Units/volume] in Serum or Plasma [facility] Work Phone: Comment on above: Expected: 08/14/2023 , Expires: 11/13/2023 Start: 08-14-2023 End: 11-13-2023 Thyroxine (T4) free [Mass/volume] in Serum or Plasma [facility] Work Phone: Comment on above: Expected: 08/14/2023 , Expires: 11/13/2023 Start: 08-14-2023 End: 11-13-2023 Triiodothyronine (T3) Free [Mass/volume] in Serum or Plasma [facility] Work Phone: Comment on above: Expected: 08/14/2023 , Expires: 11/13/2023 Start: 08-01-2023 ANNUAL PCP TEAM HOME HEALTH CLINICIAN HUMZA DISEASE VISIT ANNUAL PCP TEAM CHRONIC DISEASE VISIT [facility] Start: 06-28-2023 Covid-19 Vaccine () Covid-19 Vaccine () [facility] Start: 06-28-2023 Influenza vaccination [facility] Start: 05-01-2023 Adult depression screening assessment DEPRESSION SCREENING [facility] Start: 05-01-2023 ANNUAL PCP TEAM HOME HEALTH CLINICIAN HUMZA DISEASE VISIT ANNUAL PCP TEAM CHRONIC DISEASE VISIT [facility] Start: 03-06-2023 End: 10-06-2023 Us abdominal real time w/image limited US ABD SPLEEN Radiology Routine Cyst of spleen Expected: 03/06/2023, Expires: 10/06/2023 [facility] Work Phone: Comment on above: Expected: 03/06/2023 , Expires: 10/06/2023 Start: 01-30-2023 ANNUAL PCP TEAM HOME HEALTH CLINICIAN HUMZA DISEASE VISIT ANNUAL PCP TEAM CHRONIC DISEASE VISIT [facility] Start: 01-30-2023 BP CONTROLLED (<130/80) BP CONTROLLE D (<130/80) [facility] Start: 01-30-2023 zzBP Controlled (<13 0/80) (Retired) zzBP Controlled (<130/80) (Retired) [facility] Start: 10-28-2022 ADVANCE DIRECTIVE DISCUSSION ADVANCE DIRECTIVE DISCUSSION [facility] Start: 10-28-2022 DEPRESSION ASSESSMENT DEPRESSION ASS ESSMENT [facility] Start: 2022 ADVANCE DIRECTIVE DISCUSSION ADVANCE DIRECTIVE DISCUSSION [facility] Start: 2022 BONE DENSITY BONE DENSITY [facility] Start: 2022 Bone Density Screening Bone Density Screening [facility] Start: 2022 PNEUMOCOCCAL (3 - PP SV23 if available, else PCV20) PNEUMOCOCCAL (3 - PPSV23 if available, else PCV20) [facility] Start: 2022 PNEUMOCOCCAL (3 - PP SV23 or PCV20) PNEUMOCOCCAL (3 - PPSV23 or PCV20) [facility] Start: 2022 PNEUMOCOCCAL: 65+ (3 - PPSV23 if available, else PCV20) PNEUMOCOCCAL: 65+ (3 - PPSV23 if available, else PCV20) [facility] Start: 2022 Screening for osteoporosis Bone Density Screening [facility] Start: 06-28-2022 Influenza vaccination INFLUENZA (#1) [facility] Start: 05-05-2022 Influenza vaccination LUNG CANCER SC REENING [facility] Start: 04-26-2022 Adult depression screening assessment DEPRESSION SCREENING [facility] Start: 12-16-2021 COVID-19 VACCINE (4 - Booster for Pfizer series) COVID-19 VACCINE (4 - Booster for Pfizer series) [facility] Start: 10-10-2021 COVID-19 VACCINE (4 - Booster for Pfizer series) COVID-19 VACCINE (4 - Booster for Pfizer series) [facility] Start: 10-10-2021 COVID-19 VACCINE (4 - Pfizer series) COVID-19 VACCINE (4 - Pfizer series) [facility] Start: 09-02-2021 Mammography MAMMOGRAM [facility] Start: 2017 RSV Vaccine (1 - 1-d ose 60+ series) RSV Vaccine (1 - 1-dose 60+ series) [facility] Start: 06-30-2016 FECAL OCCULT BLOOD FECAL OCCULT BLOO D [facility] Start: 06-30-2016 Screening for malign ant neoplasm of colon Fecal Occult Blood [facility] Start: 2002 COLOGUARD (FIT-DNA) COLOGUARD (FIT-D NA) [facility] Start: [address] COLONOGRAPHY [facility] Start: 2002 Screening for malign ant neoplasm of colon [facility] Start: 2002 SIGMOIDOSCOPY SIGMOIDOSCOPY [facility] Start: 1975 HIV SCREENING HIV SCREENING [facility] Bacteria identified in Urine by Culture BACTERIAL CULTURE, URINE Microbiology Routine Acute cystitis with hematuria 04/20/2025 11:11 AM EDT [facility] Work Phone: Basic metabolic 2008 panel with ionized calcium - Serum or Plasma [facility] End: 02-25-2026 CT Lung parenchyma WO contrast CT LUNG FOLLOWUP WO IVCON Radiology Routine Lung nodules 1 Occurrences starting 01/26/2025 until 02/25/2026 [facility] Work Phone: Comment on above: 1 Occurrences starti ng 01/26/2025 until 02/25/2026 CT LUNG SCREEN WO IVCON CT LUNG SCREEN WO IVCON Radiology Routine Former cigarette smoker 10/08/2023 1:24 PM EST [facility] Work Phone: End: 08-31-2023 Ct thorax w/o contrast material CT CHEST WO IVCON Radiology Routine Chronic obstructive pulmonary disease, unspecified COPD type (HCC) Chronic respiratory failure with hypoxia (HCC) Stage 3 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) Oxygen dependent 1 Occurrences starting 08/01/2022 until 08/31/2023 [facility] Work Phone: Comment on above: 1 Occurrences starti ng 08/01/2022 until 08/31/2023 End: 11-20-2025 DBT Breast - bilateral screening ANUSHA SCREENING W ASHLEY Radiology Routine Encounter for screening mammogram for breast cancer 1 Occurrences starting 10/21/2024 until 11/20/2025 [facility] Work Phone: Comment on above: 1 Occurrences starti ng 10/21/2024 until 11/20/2025 ECG COMPLETE ECG COMPLETE ECG Routine Tachycardia Atrial flutter, unspecified type (HCC) Ordered: 04/23/2025 [facility] Work Phone: Comment on above: Ordered: 04/23/2025 End: 02-09-2023 Echocardiography ECHO Cardiology Routine Chronic obstructive pulmonary disease, unspecified COPD type (HCC) 1 Occurrences starting 02/09/2022 until 02/09/2023 [facility] Work Phone: Comment on above: 1 Occurrences starti ng 02/09/2022 until 02/09/2023 Magnesium measurement [facility] End: 09-12-2024 ANUSHA SCREENING ANUSHA SCREENING Radiology Routine Encounter for screening mammogram for malignant neoplasm of breast 1 Occurrences starting 08/14/2023 until 09/12/2024 [facility] Work Phone: Comment on above: 1 Occurrences starti ng 08/14/2023 until 09/12/2024 Noninvasive ear/puls e oximetry multiple deter [id number] Procedures Routine Chronic obstructive pulmonary disease, unspecified COPD type (HCC) Oxygen dependent Ordered: 09/24/2022 [facility] Work Phone: Comment on above: Ordered: 09/24/2022 OXIMETRY - NOCTURNAL OXIMETRY - NOCTURNAL Procedures Routine Chronic obstructive pulmonary disease, unspecified COPD type (HCC) Chronic hypoxemic respiratory failure (HCC) Ordered: 03/16/2022 [facility] Work Phone: Comment on above: Ordered: 03/16/2022 OXIMETRY - NOCTURNAL OXIMETRY - NOCTURNAL Procedures Routine Chronic obstructive pulmonary disease, unspecified COPD type (HCC) Chronic respiratory failure with hypoxia (HCC) Stage 3 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) Oxygen dependent Ordered: 08/01/2022 [facility] Work Phone: Comment on above: Ordered: 08/01/2022 End: 03-11-2023 OXIMETRY WITH AMBULATION OXIMETRY WITH AMBULATION PFT Routine Chronic obstructive pulmonary disease, unspecified COPD type (HCC) 1 Occurrences starting 02/09/2022 until 03/11/2023 [facility] Work Phone: Comment on above: 1 Occurrences starti ng 02/09/2022 until 03/11/2023 End: 06-28-2024 OXIMETRY WITH AMBULATION OXIMETRY WITH AMBULATION PFT Routine Chronic obstructive pulmonary disease, unspecified COPD type (HCC) Oxygen dependent 1 Occurrences starting 05/30/2023 until 06/28/2024 [facility] Work Phone: Comment on above: 1 Occurrences starti ng 05/30/2023 until 06/28/2024 Patient Education Coping with He art Failure [facility] Work Phone: Patient referral [facility] Work Phone: End: 03-10-2026 Polysomnogram POLYSOMNOGRAM (PSG) Procedures Routine Daytime sleepiness 1 Occurrences starting 03/10/2025 until 03/10/2026 [facility] Work Phone: Comment on above: 1 Occurrences starti ng 03/10/2025 until 03/10/2026 End: 10-28-2023 Radiologic exam chest 2 views XR CHEST 2V FRONTAL/LAT Radiology Routine COVID Bacterial sinusitis Chronic obstructive pulmonary disease, unspecified COPD type (HCC) 1 Occurrences starting 09/28/2022 until 10/28/2023 [facility] Work Phone: Comment on above: 1 Occurrences starti ng 09/28/2022 until 10/28/2023 Radiologic exam ches t 2 views XR CHEST 2V FRONTAL/LAT Radiology Routine COVID Bacterial sinusitis Chronic obstructive pulmonary disease, unspecified COPD type (HCC) 09/28/2022 1:22 PM EST [facility] Work Phone: End: 10-05-2023 Screening mammography bi 2-view breast inc cad ANUSHA SCREENING Radiology Routine Encounter for screening mammogram for breast cancer 1 Occurrences starting 09/05/2022 until 10/05/2023 [facility] Work Phone: Comment on above: 1 Occurrences starti ng 09/05/2022 until 10/05/2023 End: 03-11-2023 SPIROMETRY BASELINE ONLY SPIROMETRY BASELINE ONLY PFT Routine Chronic obstructive pulmonary disease, unspecified COPD type (HCC) 1 Occurrences starting 02/09/2022 until 03/11/2023 [facility] Work Phone: Comment on above: 1 Occurrences starti ng 02/09/2022 until 03/11/2023 SPIROMETRY BASELINE ONLY SPIROME TRY BASELINE ONLY PFT Routine Chronic obstructive pulmonary disease, unspecified COPD type (HCC) 03/16/2022 8:57 AM EDT [facility] Work Phone: End: 09-29-2023 Us abdominal real time w/image limited US ABD SPLEEN Radiology Routine Cyst of spleen 1 Occurrences starting 08/30/2022 until 09/29/2023 [facility] Work Phone: Comment on above: 1 Occurrences starti ng 08/30/2022 until 09/29/2023 End: 04-12-2025 XR Chest PA and Lateral XR CHEST 2V FRONTAL/LAT Radiology Routine Chronic obstructive pulmonary disease, unspecified COPD type (HCC) Acute bronchitis with chronic obstructive pulmonary disease (COPD) (HCC) (HCC) 1 Occurrences starting 03/13/2024 until 04/12/2025 [facility] Work Phone: Comment on above: 1 Occurrences starti ng 03/13/2024 until 04/12/2025 XR Chest PA and Lateral [facility] Immunizations Immunization Date Immunization Notes Care Provider Lesvia maldonado 09-28-2024 influenza, high dose seasonal, preservative-free Maricruz Camp ACCURACY EXPERT.NEWSSTAND VENDOR Work Phone: [facility] 09-28-2024 respiratory syncytia l virus (RSV) vaccine, bivalent (ABRYSVO) Maricruz Camp ACCURACY EXPERT.NEWSSTAND VENDOR Work Phone: [facility] 08-14-2023 influenza (HD-IIV4) vaccine, age 65+ yr, high dose, quadrivalent, PF (FLUZONE HIGH-DOSE) Phuc Martines DO Work Phone: [facility] Work Phone: 08-14-2023 influenza virus vacc ine, unspecified formulation Diana Gonzalez MD Work Phone: [facility] 02-06-2023 pneumococcal (PCV20) vaccine, 20 valent (PREVNAR 20) Diana Gonzalez MD Work Phone: [facility] Work Phone: 08-01-2022 influenza, injectabl e, quadrivalent, contains preservative Phuc Martines DO Work Phone: [facility] Work Phone: 08-01-2022 influenza virus vacc ine, unspecified formulation Phuc Martines DO Work Phone: [facility] 08-15-2021 influenza, injectabl e, quadrivalent, preservative free Hodan Christine PA-C Work Phone: [facility] Work Phone: 01-03-2021 COVID-19 vaccine, ag e 12+ yr (PFIZER-BIONTECH - [facility]) Phuc Martines DO Work Phone: [facility] Work Phone: 12-15-2020 COVID-19 vaccine, ag e 12+ yr (PFIZER-BIONTECH - [facility]) Phuc Martines DO Work Phone: [facility] Work Phone: 07-06-2020 influenza, injectabl e, quadrivalent, contains preservative Phuc Martines DO Work Phone: [facility] Work Phone: 11-20-2019 zoster vaccine recombinant Phuc Martines DO Work Phone: [facility] Work Phone: 08-04-2019 influenza, injectabl e, quadrivalent, contains preservative Phuc Martines DO Work Phone: [facility] Work Phone: 08-30-2018 influenza, injectabl e, quadrivalent, contains preservative Phuc Martines DO Work Phone: [facility] 05-06-2018 zoster vaccine recombinant Phuc Martines DO Work Phone: [facility] Work Phone: 08-31-2017 influenza, injectabl e, quadrivalent, contains preservative Phuc Martines DO Work Phone: [facility] 05-06-2017 pneumococcal polysaccharide vaccine, 23 valent Phuc Martines DO Work Phone: [facility] 09-28-2016 pneumococcal conjuga te vaccine, 13 valent Phuc Martines DO Work Phone: [facility] 08-18-2016 influenza, injectabl e, quadrivalent, contains preservative Phuc Martines DO Work Phone: [facility] 08-01-2016 influenza, injectabl e, quadrivalent, preservative free Dr. Phuc Martines DO Work Phone: [facility] 11-09-2015 tetanus toxoid, redu benigno diphtheria toxoid, and acellular pertussis vaccine, adsorbed Phuc Martines DO Work Phone: [facility] Work Phone: 07-28-2015 influenza, injectabl e, quadrivalent, contains preservative Phuc Martines DO Work Phone: [facility] Work Phone: 08-05-2014 influenza, seasonal, injectable Phuc Martines DO Work Phone: [facility] 09-05-2013 influenza virus vacc ine, unspecified formulation Phuc Martines DO Work Phone: [facility] Work Phone: 11-12-2012 influenza virus vacc ine, unspecified formulation Phuc Martines DO Work Phone: [facility] 09-03-2011 influenza virus vacc ine, unspecified formulation Phuc Martines DO Work Phone: [facility] Work Phone: 08-15-2010 influenza virus vacc ine, unspecified formulation Phuc Martines DO Work Phone: [facility] Work Phone: 07-28-2009 influenza virus vacc ine, unspecified formulation Phuc Martines DO Work Phone: [facility] 07-07-2008 pneumococcal polysaccharide vaccine, 23 valent Phuc Martines DO Work Phone: [facility] 11-19-2005 tetanus toxoid, redu benigno diphtheria toxoid, and acellular pertussis vaccine, adsorbed Phuc Martines DO Work Phone: [facility] Work Phone: Payers Date Payer Category Payer Self-pay 2022 [facility] RIMA SUPPLEMENT Member Subscriber Plan / Payer (Effective 2022-Present) Name: Lisa Lucero Relation to Subscriber: Self Name: Lisa Lucero Payer ID: [id number] (NAIC) Group ID: [id number] Type: Indemnity Address: [id number] 2022 Medicare [id number] 2022 Medicare [id number] 2021 Unknown [facility] JEAN MARIE [id number] 2021-Present [phone] [address] [place] [address] [facility] [id number] 2017 Unknown [id number]. [id number] 2014 Unknown [id number] Unknown [id number] 2.16.840.1.946105.3.579. 2.462 Unknown [id number] 2.16.840.1.847749.3.579. 2.462 Unknown [id number] 2.16.840.1.989304.3.579. 2.462 Unknown [id number] 2.16.840.1.166627.3.579. 2.462 Unknown [id number] 2.16.840.1.454545.3.579. 2.462 Unknown [id number] 2.16.840.1.422767.3.579. 2.462 Unknown [id number] 2.16.840.1.973030.3.579. 2.462 Unknown [id number] 2.16.840.1.817161.3.579. 2.462 Unknown [id number] 2.16.840.1.571661.3.579. 2.462 Unknown [id number] 2.16.840.1.498485.3.579. 2.462 Unknown [id number] 2.16.840.1.614262.3.579. 2.462 Unknown [id number] 2.16.840.1.643665.3.579. 2.462 Unknown [id number] 2.16.840.1.592590.3.579. 2.462 Unknown [id number] 2.16.840.1.545542.3.579. 2.462 Unknown [id number] 2.16.840.1.646701.3.579. 2.462 Social History Date Type Detail Facility Start: 06-22-2022 End: 04-23-2025 Tobacco smoking status NHIS Ex-smoker [facility] Work Phone: Start: 1971 End: 12-20-2008 History of tobacco use Current smoker [facility] Start: 1971 End: 12-20-2008 History of tobacco use Cigarette Smoker [facility] Start: 01-30-2022 End: 04-23-2025 Alcohol intake Current drinker of alcohol (finding) [facility] Start: 05-28-2020 End: 09-02-2020 History SDOH Alcohol Frequency 5 [facility] Start: 09-02-2020 End: 10-30-2021 History SDOH Alcohol Std Drinks 2 [facility] Start: 11-14-2019 End: 05-28-2020 History SDOH Social Connections Get Together 3 [facility] Start: 05-28-2020 History SDOH Social Connections Baptism 98 [facility] Start: 11-14-2019 History SDOH Physica l Activity DPW 7 [facility] Start: 11-14-2019 End: 10-30-2021 History SDOH Physical Activity MPS 1 [facility] Start: 11-14-2019 Education 21 [facility] Start: 08-02-2015 End: 06-22-2022 Tobacco Comment Parents smoked in childhood home. Spouse smokes, not in home. [facility] Start: 1955 Sex Assigned At Female [facility] Start: 12-11-2020 End: 09-28-2022 Exposure to SARS-CoV-2 (event) Not sure [facility] Work Phone: Start: 10-02-2020 End: 06-22-2022 Cigarettes smoked current (pack per day) - Reported 1 [facility] Work Phone: Start: 06-22-2022 End: 06-26-2024 Tobacco use and exposure Smokeless tobacco non-user [facility] Start: 10-02-2020 End: 02-06-2023 Tobacco use panel [facility] Work Phone: Adult Depression Screening Assessment 0 [facility] Work Phone: Start: 05-28-2020 Gender identity Identifies as female gender (finding) [facility] Start: 05-28-2020 Sexual orientation Heterosexual (rainer bello) [facility] How often to you hav e a drink containing alcohol? 4 or more times a week [facility] Work Phone: How many standard drinks containing alcohol do you have on a typical day? 3 or 4 [facility] Work Phone: How often do you hav e 6 or more drinks on 1 occasion? Less than monthly [facility] Work Phone: Do you feel stress - tense, restless, nervous, or anxious, or unable to sleep at night because your mind is troubled all the time - these days [OSQ] Only a little [facility] (I/We) worried joel er (my/our) food would run out before (I/we) got money to buy more. Never true [facility] Work Phone: In the past 12 month s, was there a time when you were not able to pay the mortgage or rent on time? No [facility] Are you now , , , , never or living with a partner? [facility] How often do you hav e 6 or more drinks on 1 occasion? Weekly [facility] How hard is it for y ou to pay for the very basics like food, housing, medical care, and heating Not very hard [facility] Start: 04-15-2017 Heavy Heavy [facility] Start: 04-15-2017 None None [facility] Start: 04-15-2017 Spouse/ Significant Other Spouse/ Significant Other [facility] Start: 04-15-2017 Non-smoker Non-smoker [facility] Start: 02-23-2025 Sex Female (finding) [facility] Goals Date Patient Goal Desired Activity /State Functional Status Date Assessment Result Facility 04-27-2025 Functional status Ambulates [facility] Work Phone: 02-23-2025 Functional status Ambulates [facility] Work Phone: 05-09-2015 Are you deaf, or do you have serious difficulty hearing No 05/09/2015 3:40 PM EDT Carolina Horner [facility] No [facility] 05-09-2015 Are you blind, or do you have serious difficulty seeing, even when wearing glasses No 05/09/2015 3:40 PM EDT Carolina Horner Cma No [facility] 05-09-2015 Do you have serious difficulty walking or climbing stairs No 05/09/2015 3:40 PM EDT Carolina Horner Cma No [facility] 05-09-2015 Do you have difficul ty dressing or bathing No 05/09/2015 3:40 PM EDT Carolina Horner Cma No [facility] 05-09-2015 Because of a physica l, mental, or emotional condition, do you have difficulty doing errands alone such as visiting a physician's office or shopping No 05/09/2015 3:40 PM EDT Carolina Horner Cma No [facility] Mental Status Date Assessment Result Facility 04-27-2025 Cognitive function Voice/Name [facility] Work Phone: 04-23-2025 Cognitive function Voice/Name [facility] Work Phone: 02-23-2025 Cognitive function Voice/Name [facility] Work Phone: 05-09-2015 Because of a physica l, mental, or emotional condition, do you have serious difficulty concentrating, remembering, or making decisions No 05/09/2015 3:40 PM EDT Carolina Horner Cma No [facility] Clinical Notes 05-19-2019 to 04-27-2025 Note Date & Type Note Facility 04-27-2025 Consult note [facility] 04-27-2025 Discharge summary Note Date/Time April 27, 2025 2:04pm [facility] Medical Records Department [address] [place] [address] Discharge Summary 04/27/25 1113 MR#: [id number] Acct: [id number] Name: LISA LUCERO Rep #:[id number] 18 : 1955 69 From: George Willis PCP: Dr. Phuc Martines, DO Status:AD M IN Location: U [id number] Providers Date of Admission: 04/23/25 Date of Discharge: 04/27/25 Primary Care Physician: Dr. Phuc Martines, DO Reason For Visit: PAFLUTTER W/RVR, ? ACUTE VIRAL SYNDROME Diagnosis Discharge Diagnosis (1) Atrial flutter with rapid ventricular response: Status: Acute Code(s): I48.92 - Unspecified atrial flutter Plan The patient is a 69 y/o F admitted with fever 102 Fahrenheit on Saturday, URI symptoms nasal congestion, shortness of breath/dyspnea on her baseline 3 to 6 L of oxygen because of COPD and chronic alcohol use. No recent cough. There is concerned of UTI therefore was started on Macrobid but later on urine culture came back negative. She was tachycardic heart rate about 129 bpm in PCP office and was sent for admission. Denies chest pain abdominal pain nausea and vomiting #1. Mild COPD exacerbation from suspected viral infection: Patient is being admitted in the PCU. Currently on 6 L of oxygen. Patient is being managed on scheduled bronchodilator, Pulmicort aerosol twice daily, Mucinex, incentive spirometry and Pep. 04/25: Air entry has improved compared to yesterday. Continue bronchodilator treatment. 04/26: Patient on baseline oxygen 4 to 5 L/min. Home O2 qualification test ordered. Patient required 8 L on exertion therefore discharge canceled 04/27: Patient on baseline oxygen requirement 4 to 5 L. Patient did not meet criteria for SNF so will be going home. #2. Paroxsymal atrial flutter w/ RVR due to acute on chronic HFpEF: EKG in ED w/ atrial flutter w/ RVR. Patient administered Cardizem bolus and eventually placed on a drip in ED. Was started on Cardizem drip. Continue Eliquis. Cardizem drip is being tapered off, started on Cardizem 60 mg Q6 hourly. Recent echo on 02/19/2025 with borderline LV systolic function with LVEF 45 to 50%, moderate global RV systolic dysfunction, mild biatrial dilatation, moderateMVI, mild TBI, RVSP 53 mmHg Chest x-ray shows cardiomegaly and mild fluid congestion. Furosemide 40 mg IV twice daily 04/25: Heart rate is better controlled and 100s. Cardizem 60 mg Q6 hourly changed to Cardizem CD 120 mg Q12 hourly. Continue IV diuresis 04/26: Heart rate is controlled about 90s. Cardizem CD dose increased to 180 mg every 12 hourly and prescription for the same given. 04/27: Heart rate is better controlled. #3. UTI ruled out and possible Macrobid allergic: Patient was started on Macrobid for concern of UTI but she developed a rash therefore was discontinued. Urine culture also negative therefore UTI ruled out 04/26: Macrobid discontinued from the discharge med list. #4. EtOH Abuse, recently cutting back: Currently she drinks 2/day, total 14 drinks weekly and therefore advised to quit it. She was also told by her ladle handler Dr. Bryan Elena to be cautious will maintain on CIWA protocol, MVI, thiamine and folic acid. #5. Hypertension: Continue home regimen including Lasix, metoprolol, as needed hydralazine #6. Hyperlipidemia: Triglycerides 93, Cholesterol 138, LDL Cholesterol, Calc 81, VLDL Cholesterol 19, HDL Cholesterol 38 L, Cholesterol/HDL Ratio 3.62, TSH 1.970. Started on atorvastatin 20 mg daily. discharged on atorvastatin 40 mg daily #7. Morbid Obesity: Weight loss and lifestyle changes encouraged. #8. History of VTE: Patient with history of DVT, PE, continue Eliquis home regimen. #9. She quit smoking about 10 years ago. Total more than 40 pack years of a smoker #10. ROXY: Patient reports that she only uses supplemental oxygen, no PAP therapy. Follows floorworker lasting Dr. Diana gonzalez #11. DVT prophylaxis: Will continue patient on Eliquis regimen. #12. CODE status: Patient ARACELI is her daughter and living will is currently inplace. Discussed CODE status at length including difference between FULL code, DNR-CCA and DNR-CC status. Following discussions about the differences in these status, requested Full Code status. Discharge medication reconciliation done. Discharge follow-up instructions completed. Discharge process discussed with the patient and all questions wereanswered to patient's satisfaction. Follow with PCP in 1 to 2 weeks Total time spent, exact 35 minutes on discharge meds reconciliation, examination, coordination of care with nurses and ancillary staff, review of imaging and blood test and discussion with the patient on follow-up instructions. Microbiology Past 72 Hours 04/24/25 01:36 Mucosa - Nasopharyngeal Respiratory Panel (PCR) - Final Laboratory Results 04/26/25 05:30: WBC 9.2, RBC 3.77 L, Hgb 11.6 L, Hct 38.8, MCV 102.9 H, MCH 30.8, MCHC 29.9 L, RDW Std Deviation 54.2 H, RDW Coeff of Karly 14.3, Plt Count 266, MPV 11.1, Immature Gran % (Auto) 0.700, Neut % (Auto) 87.0 H, Lymph % (Auto) 5.2 L, [place]ath % (Auto) 5.9, Eos % (Auto) 0.9, Baso % (Auto) 0.3, Absolute Neuts (auto) 8.0 H, Absolute Lymphs (auto) 0.48 L, Nucleated RBC % 0, Sodium 142, Potassium 4.6, Chloride 96 L, Carbon Dioxide 37.1 H, Anion Gap 8, BUN 23 H,Creatinine 0.72, Estim Creat Clear Calc 85.43, Est GFR (MDRD) Non-Af 92, BUN/Creatinine Ratio 32.1 H, Glucose 125 H, Calcium 9.4 Medications at Discharge Home Medications Oxygen, Home [Home Oxygen] 2 - 4 lpm QHS sob/copd 11/13/17 albuterol sulfate 90 mcg/actuation breath activated powder inhaler 2 inh inhalation Q6H PRN shortness of breath 02/19/25 fluticasone fur. 200 mcg-umeclid 62.5 mcg-vilant 25 mcg inhalat.powder (Trelegy Ellipta) 1 ea inhalation DAILY sob 02/19/25 guaifenesin 1,200 mg tablet, extended release 12 hr (Mucus Relief ER) 1,200 mg PO BID PRN cough 02/19/25 ipratropium 0.5 mg-albuterol 3 mg (2.5 mg base)/3 mL nebulization soln 3 ml inhalation Q6H PRN shortness of breath 02/19/25 multivitamin (Daily Multi-Vitamin tablet) 1 tab PO DAILY supplement 02/19/25 sodium chloride 0.65 % nasal spray aerosol (White House Saline) 1 spray intranasal BID PRN dry nasal passages 02/19/25 apixaban 5 mg tablet (Eliquis) 5 mg PO BID blood thinner #60 tabs 02/23/25 furosemide 40 mg tablet 40 mg PO BID diuretic #60 tabs 02/23/25 metoprolol tartrate 50 mg tablet 50 mg PO BID blood pressure #60 tabs 02/23/25 potassium chloride 20 mEq tablet,extended release(part/cryst) (Klor-Con M) 20 meq PO BID supplement #60 tabs 02/23/25 ascorbic acid (vitamin C) 500 mg capsule 500 mg PO DAILY PRN supplement 03/30/25 cinnamon bark 500 mg capsule (Cinnamon) 500 mg PO QDAY supplement 03/30/25 mecobalamin (vitamin B12) 1,000 mcg chewable tablet 1,000 mcg PO QDAY [id number]/25 nystatin 100,000 unit/gram topical cream 1 applic topical BID skin rash 04/23/25 atorvastatin 40 mg tablet 40 mg PO QHS 30 days #30 tabs 04/26/25 diltiazem HCl 180 mg capsule,extended release 24 hr 180 mg PO Q12 30 days #60 caps 04/26/25 Physical Exam Narrative Seen and examined. Patient complaining of sciatica pain mainly left lumbar with radiation to anterior abdominal wall. Otherwise on baseline health. Overall, shortness of breath is improved and patient is on baseline. Heart rhythm A-fib, heart rate is controlled currently on 5 L of oxygen Patient was admitted for SOB and, rapid heart rate, new onset atrial flutter, COPD on 3 to 6 L of oxygen at baseline and chronic alcohol use. Scheduled with ladle handler for possible ablation. Patient was also having fever and PCP concern for UTI Physical exam General: Alert, Oriented x3, Cooperative HEENT: Atraumatic, PERRLA, EOMI, Normocephalic. Oral: No Gingival or Mucosal Lesions/ Ulcerations Neck: Supple, No JVD, Negative Carotid Bruits Chest wall/Lungs: Air entry improved in all lung yu. Mild occasional expiratory rhonchi Cardiovascular: Irregular rate and rhythm, Normal S1,S2, systolic murmur Abdomen: Bowel Sounds Present, Soft, Non Tender, Non-Distended : No dysuria. No renal angle tenderness. No suprapubic tenderness. Extremities: Mild 1+ pitting edema, Capillary Refill Less than 3 Seconds Skin: No rashes, No breakdown Musculoskeletal: Mild tenderness over lumbar paraspinal muscle. No Tenderness to Palpation of peripheral knees joints or Extremities. ROM restricted Neurological: Cranial nerves II-XII grossly intact, DTR 2+/4. No acute focal neurological deficit. Psych/Mental Status: Normal Affect, Appropriate. Weight / BMI Weight Weight: 259 lb 7.745 oz Body Mass Index (BMI) 44.5 ABG / Lab / Microbiology Data 04/26/25 05:30 04/26/25 05:30 Microbiology: Microbiology 04/24/25 01:36 Mucosa - Nasopharyngeal Respiratory Panel (PCR) - Final D/C Instructions Discharge Diet: Low fat / Low cholesterol and 2000 mg Sodium Diet Weight Bearing Status: Weight bearing as tolerated Call your doctor if you observe: Fever of 101 or Higher, Coldness, Increased Pain, Numbness or Tingling, Change in Color, Inability to urinate, Inability to have a bowel movement, Shortness of breath, Dizziness, Fainting spells, Swellingin the ankles, Chest pain, Prolonged hiccupping, Increased palpitations (irregular heartbeat) and Calf discomfort DC O2, CPAP, BIPAP Needs Home O2 Discharge instructions: Yes Type of respiratory needs?: Oxygen Oxygen frequency: Continuous Continuous oxygen liters per minute: 5 DC home with Oxygen: Yes Home O2 MD Review: I have reviewed the oxygen testing, and the patient qualifies for home oxygen equipment and portability. The patient is mobile in the home and the community. When: IN 2 WEEKS Meaningful Use Info Meaningful Use Meaningful Use Diagnoses (Choose all that apply): None applicable Ischemic Stroke Statin Dosing Therapy Reference: STATIN [...] Simvastatin 80mg Discharge Plan Admission Admit Date/Time: 04/23/25 21:51 Primary Reason for Your Visit: A-fib RVR/CHF exacerbation Attending Provider: George Polanco Primary Care Provider: Phuc Martines Consulting Providers: Virginia Henriquez Discharge Orders/Prescriptions Prescriptions: New atorvastatin 40 mg Tablet 40 mg PO QHS 30 Days Qty: 30 2RF diltiazem HCl 180 mg Capsule,Extended Release 24hr 180 mg PO Q12 30 Days Qty: 60 1RF Continued cinnamon bark [Cinnamon] 500 mg capsule 500 mg PO QDAY mecobalamin (vitamin B12) 1,000 mcg tablet,chewable 1,000 mcg PO QDAY Oxygen, Home [Home Oxygen] 2 - 4 lpm NASAL QHS ascorbic acid (vitamin C) 500 mg capsule 500 mg PO DAILY PRN (Reason: supplement) Patient Comments: only takes in winter albuterol sulfate 90 mcg/actuation aerosol powdr breath activated 2 inh inhalation Q6H PRN (Reason: shortness of breath) Trelegy Ellipta 200-62.5-25 mcg blister with device 1 ea inhalation DAILY ipratropium-albuterol 0.5 mg-3 mg(2.5 mg base)/3 mL solution for nebulization 3 ml inhalation Q6H PRN (Reason: shortness of breath) multivitamin [Daily Multi-Vitamin] Tablet 1 tab PO DAILY [place] Saline 0.65 % aerosol,spray 1 spray intranasal BID PRN (Reason: dry nasal passages) guaifenesin [Mucus Relief ER] 1,200 MG tablet 1,200 mg PO BID PRN (Reason: cough) metoprolol tartrate 50 mg Tablet 50 mg PO BID Qty: 60 2RF furosemide 40 mg tablet 40 mg PO BID Qty: 60 2RF potassium chloride [Klor-Con M20] 20 mEq tablet,ER particles/crystals 20 meq PO BID Qty: 60 2RF Eliquis 5 mg Tablet 5 mg PO BID Qty: 60 2RF nystatin 100,000 unit/gram cream 1 applic topical BID Discontinued nitrofurantoin monohyd/m-cryst 100 mg capsule 1 cap PO BID Referrals / Follow Up: Mercy Purvis MD [Med Staff - Active Staff] - Within 1 Month Yonathan Gonzalez DO [Med Staff - Active Staff] - 06/01/25 10:45 am (Respiratory failure, COPD on oxygen) Phuc Martines DO [Primary Care Provider] - 05/11/25 11:40 am (APPOINTMENT WITH ANTIONETTE CHEATHAM) Irina Elam PA [Med Staff - Adv Practice Prof] - 05/13/25 1:00 pm Disposition Disposition (needs filled in before D/C Order can be placed): Home Health Service Charges/Coding Visit Charges Inpatient E&M: 24517 Disch Hosp >30min 04/27/25 1404 <Electronically signed by George Polanco MD> Cosigner Signature (if applicable): CC: Dr. Phuc Martines DO; Dr. George Polanco MD~ Signed [facility] Work Phone: 1(390) 833-235907-01-2025 Discharge summary [facility] Medical Records Department [address] [place] [id number] Discharge Summary 04/27/25 1113 MR#: [id number] Acct: [id number] Name: LISA LUCERO Rep #:[id number] 18 : 1955 69 From: George Willis PCP: Dr. Phuc Martines DO Status:AD M IN Location: [facility] [id number] Providers Date of Admission: 04/23/25 Date of Discharge: 04/27/25 Primary Care Physician: Dr. Phuc Martines DO Reason For Visit: PAFLUTTER W/RVR, ? ACUTE VIRAL SYNDROME Diagnosis Discharge Diagnosis (1) Atrial flutter with rapid ventricular response: Status: Acute Code(s): I48.92 - Unspecified atrial flutter Plan The patient is a 69 y/o F admitted with fever 102 Fahrenheit on Saturday, URI symptoms nasal congestion, shortness of breath/dyspnea on her baseline 3 to 6 L of oxygen because of COPD and chronic alcohol use. No recent cough. There is concerned of UTI therefore was started on Macrobid but later on urine culture came back negative. She was tachycardic heart rate about 129 bpm in PCP office and wassent for admission. Denies chest pain abdominal pain nausea and vomiting #1. Mild COPD exacerbation from suspected viral infection: Patient is being admitted in the PCU. Currently on 6 L of oxygen. Patient is being managed on scheduled bronchodilator, Pulmicort aerosol twice daily, Mucinex, incentive spirometry and Pep. 04/25: Air entry has improved compared to yesterday. Continue bronchodilator treatment. 04/26: Patient on baseline oxygen 4 to 5 L/min. Home O2 qualification test ordered. Patient required8 L on exertion therefore discharge canceled 04/27: Patient on baseline oxygen requirement 4 to 5 L. Patient did not meet criteria for SNF so willbe going home. #2. Paroxsymal atrial flutter w/ RVR due to acute on chronic HFpEF: EKG in ED w/ atrial flutter w/ RVR. Patient administered Cardizem bolus and eventually placed on a drip in ED. Was started on Cardizem drip. Continue Eliquis. Cardizem drip is being tapered off, started on Cardizem 60 mg Q6 hourly. Recent echo on 02/19/2025 with borderline LV systolic function with LVEF 45 to 50%, moderate global RV systolic dysfunction, mild biatrial dilatation, moderateMVI, mild TBI, RVSP 53 mmHg Chest x-ray shows cardiomegaly and mild fluid congestion. Furosemide 40 mg IV twice daily 04/25: Heart rate is better controlled and 100s. Cardizem 60 mg Q6 hourly changed to Cardizem CD 120mg Q12 hourly. Continue IV diuresis 04/26: Heart rate is controlled about 90s. Cardizem CD dose increased to 180 mg every 12 hourly and prescription for the same given. 04/27: Heart rate is better controlled. #3. UTI ruled out and possible Macrobid allergic: Patient was started on Macrobid for concern of UTI but she developed a rash therefore was discontinued. Urine culture also negative therefore UTI ruled out 04/26: Macrobid discontinued from the discharge med list. #4. EtOH Abuse, recently cutting back: Currently she drinks 2/day, total 14 drinks weekly and therefore advised to quit it. She was also told by her ladle handler Dr. Bryan Elena to be cautious will maintain on CIWA protocol, MVI, thiamine and folic acid. #5. Hypertension: Continue home regimen including Lasix, metoprolol, as needed hydralazine #6. Hyperlipidemia: Triglycerides 93, Cholesterol 138, LDL Cholesterol, Calc 81, VLDL Cholesterol 19, HDL Cholesterol 38 L, Cholesterol/HDL Ratio 3.62, TSH 1.970. Started on atorvastatin 20 mg daily. discharged on atorvastatin 40 mg daily #7. Morbid Obesity: Weight loss and lifestyle changes encouraged. #8. History of VTE: Patient with history of DVT, PE, continue Eliquis home regimen. #9. She quit smoking about 10 years ago. Total more than 40 pack years of a smoker #10. ROXY: Patient reports that she only uses supplemental oxygen, no PAP therapy. Follows floorworker lasting Dr. Diana gonzalez #11. DVT prophylaxis: Will continue patient on Eliquis regimen. #12. CODE status: Patient ARACELI is her daughter and living will is currently inplace. Discussed CODE status at length including difference between FULL code, DNR-CCA and DNR-CC status. Following discussions about the differences in these status, requested Full Code status. Discharge medication reconciliation done. Discharge follow-up instructions completed. Discharge process discussed with the patient and all questions wereanswered to patient's satisfaction. Follow with PCP in 1 to 2 weeks Total time spent, exact 35 minutes on discharge meds reconciliation, examination, coordination of care with nurses and ancillary staff, review of imaging and blood test and discussion with the patient on follow-up instructions. Microbiology Past 72 Hours 04/24/25 01:36 Mucosa - Nasopharyngeal Respiratory Panel (PCR) - Final Laboratory Results 04/26/25 05:30: WBC 9.2, RBC 3.77 L, Hgb 11.6 L, Hct 38.8, MCV 102.9 H, MCH 30.8, MCHC 29.9 L, RDW Std Deviation 54.2 H, RDW Coeff of Karly 14.3, Plt Count 266, MPV 11.1, Immature Gran % (Auto) 0.700, Neut % (Auto) 87.0 H, Lymph % (Auto) 5.2 L, [place]ath % (Auto) 5.9, Eos % (Auto) 0.9, Baso % (Auto) 0.3, Absolute Neuts (auto) 8.0 H, Absolute Lymphs (auto) 0.48 L, Nucleated RBC % 0, Sodium 142, Potassium4.6, Chloride 96 L, Carbon Dioxide 37.1 H, Anion Gap 8, BUN 23 H,Creatinine 0.72, Estim Creat ClearCalc 85.43, Est GFR (MDRD) Non-Af 92, BUN/Creatinine Ratio 32.1 H, Glucose 125 H, Calcium 9.4 Medications at Discharge Home Medications Oxygen, Home [Home Oxygen] 2 - 4 lpm QHS sob/copd 11/13/17 albuterol sulfate 90 mcg/actuation breath activated powder inhaler 2 inh inhalation Q6H PRN shortness of breath 02/19/25 fluticasone fur. 200 mcg-umeclid 62.5 mcg-vilant 25 mcg inhalat.powder (Trelegy Ellipta) 1 ea inhalation DAILY sob 02/19/25 guaifenesin 1,200 mg tablet, extended release 12 hr (Mucus Relief ER) 1,200 mg PO BID PRN cough 02/19/25 ipratropium 0.5 mg-albuterol 3 mg (2.5 mg base)/3 mL nebulization soln 3 ml inhalation Q6H PRN shortness of breath 02/19/25 multivitamin (Daily Multi-Vitamin tablet) 1 tab PO DAILY supplement 02/19/25 sodium chloride 0.65 % nasal spray aerosol (White House Saline) 1 spray intranasal BID PRN dry nasal passages 02/19/25 apixaban 5 mg tablet (Eliquis) 5 mg PO BID blood thinner #60 tabs 02/23/25 furosemide 40 mg tablet 40 mg PO BID diuretic #60 tabs 02/23/25 metoprolol tartrate 50 mg tablet 50 mg PO BID blood pressure #60 tabs 02/23/25 potassium chloride 20 mEq tablet,extended release(part/cryst) (Klor-Con M) 20 meq PO BID supplement#60 tabs 02/23/25 ascorbic acid (vitamin C) 500 mg capsule 500 mg PO DAILY PRN supplement 03/30/25 cinnamon bark 500 mg capsule (Cinnamon) 500 mg PO QDAY supplement 03/30/25 mecobalamin (vitamin B12) 1,000 mcg chewable tablet 1,000 mcg PO QDAY [id number]/03/25 nystatin 100,000 unit/gram topical cream 1 applic topical BID skin rash 04/23/25 atorvastatin 40 mg tablet 40 mg PO QHS 30 days #30 tabs 04/26/25 diltiazem HCl 180 mg capsule,extended release 24 hr 180 mg PO Q12 30 days #60 caps 04/26/25 Physical Exam Narrative Seen and examined. Patient complaining of sciatica pain mainly left lumbar with radiation to anterior abdominal wall. Otherwise on baseline health. Overall, shortness of breath is improved and patient is on baseline. Heart rhythm A-fib, heart rateis controlled currently on 5 L of oxygen Patient was admitted for SOB and, rapid heart rate, new onset atrial flutter, COPD on 3 to 6 L of oxygen at baseline and chronic alcohol use. Scheduled with ladle handler for possible ablation. Patient was also having fever and PCP concern for UTI Physical exam General: Alert, Oriented x3, Cooperative HEENT: Atraumatic, PERRLA, EOMI, Normocephalic. Oral: No Gingival or Mucosal Lesions/ Ulcerations Neck: Supple, No JVD, Negative Carotid Bruits Chest wall/Lungs: Air entry improved in all lung yu. Mild occasional expiratory rhonchi Cardiovascular: Irregular rate and rhythm, Normal S1,S2, systolic murmur Abdomen: Bowel Sounds Present, Soft, Non Tender, Non-Distended : No dysuria. No renal angle tenderness. No suprapubic tenderness. Extremities: Mild 1+ pitting edema, Capillary Refill Less than 3 Seconds Skin: No rashes, No breakdown Musculoskeletal: Mild tenderness over lumbar paraspinal muscle. No Tenderness to Palpation of peripheral knees joints or Extremities. ROM restricted Neurological: Cranial nerves II-XII grossly intact, DTR 2+/4. No acute focal neurological deficit. Psych/Mental Status: Normal Affect, Appropriate. Weight / BMI Weight Weight: 259 lb 7.745 oz Body Mass Index (BMI) 44.5 ABG / Lab / Microbiology Data 04/26/25 05:30 04/26/25 05:30 Microbiology: Microbiology 04/24/25 01:36 Mucosa - Nasopharyngeal Respiratory Panel (PCR) - Final D/C Instructions Discharge Diet: Low fat / Low cholesterol and 2000 mg Sodium Diet Weight Bearing Status: Weight bearing as tolerated Call your doctor if you observe: Fever of 101 or Higher, Coldness, Increased Pain, Numbness or Tingling, Change in Color, Inability to urinate, Inability to have a bowel movement, Shortness of breath, Dizziness, Fainting spells, Swellingin the ankles, Chest pain, Prolonged hiccupping, Increased palpitations (irregular heartbeat) and Calf discomfort DC O2, CPAP, BIPAP Needs Home O2 Discharge instructions: Yes Type of respiratory needs?: Oxygen Oxygen frequency: ContinuousContinuous oxygen liters per minute: 5 DC home with Oxygen: Yes Home O2 MD Review: I have reviewed the oxygen testing, and the patient qualifies for home oxygen equipment and portability. The patient is mobile in the home and the community. When: IN 2 WEEKS Meaningful Use Info Meaningful Use Meaningful Use Diagnoses (Choose all that apply): None applicable Ischemic Stroke Statin Dosing Therapy Reference: STATIN [...] Simvastatin 80mg Discharge Plan Admission Admit Date/Time: 04/23/25 21:51 Primary Reason for Your Visit: A-fib RVR/CHF exacerbation Attending Provider: George Polanco Primary Care Provider: Phuc Martines Consulting Providers: Virginia Henriquez Discharge Orders/Prescriptions Prescriptions: New atorvastatin 40 mg Tablet 40 mg PO QHS 30 Days Qty: 30 2RF diltiazem HCl 180 mg Capsule,Extended Release 24hr 180 mg PO Q12 30 Days Qty: 60 1RF Continued cinnamon bark [Cinnamon] 500 mg capsule 500 mg PO QDAY mecobalamin (vitamin B12) 1,000 mcg tablet,chewable 1,000 mcg PO QDAY Oxygen, Home [Home Oxygen] 2 - 4 lpm NASAL QHS ascorbic acid (vitamin C) 500 mg capsule 500 mg PO DAILY PRN (Reason: supplement) Patient Comments: only takes in winter albuterol sulfate 90 mcg/actuation aerosol powdr breath activated 2 inh inhalation Q6H PRN (Reason: shortness of breath) Trelegy Ellipta 200-62.5-25 mcg blister with device 1 ea inhalation DAILY ipratropium-albuterol 0.5 mg-3 mg(2.5 mg base)/3 mL solution for nebulization 3 ml inhalation Q6H PRN (Reason: shortness of breath) multivitamin [Daily Multi-Vitamin] Tablet 1 tab PO DAILY White [place] Saline 0.65 % aerosol,spray 1 spray intranasal BID PRN (Reason: dry nasal passages) guaifenesin [Mucus Relief ER] 1,200 MG tablet 1,200 mg PO BID PRN (Reason: cough) metoprolol tartrate 50 mg Tablet 50 mg PO BID Qty: 60 2RF furosemide 40 mg tablet 40 mg PO BID Qty: 60 2RF potassium chloride [Klor-Con M20] 20 mEq tablet,ER particles/crystals 20 meq PO BID Qty: 60 2RF Eliquis 5 mg Tablet 5 mg PO BID Qty: 60 2RF nystatin 100,000 unit/gram cream 1 applic topical BID Discontinued nitrofurantoin monohyd/m-cryst 100 mg capsule 1 cap PO BID Referrals / Follow Up: Mercy Purvis MD [Med Staff - Active Staff] - Within 1 Month Yonathan Gonzalez DO [Med Staff - Active Staff] - 06/01/25 10:45 am (Respiratory failure, COPD on oxygen) Phuc Martines DO [Primary Care Provider] - 05/11/25 11:40 am (APPOINTMENT WITH ANTIONETTE CHEATHAM) Irina Elam PA [Med Staff - Adv Practice Prof] - 05/13/25 1:00 pm Disposition Disposition (needs filled in before D/C Order can be placed): Home Health Service Charges/Coding Visit Charges Inpatient E&M: 33310 Disch Hosp >30min 04/27/25 1402 Cosigner Signature (if applicable): CC: Dr. Phuc Martines DO; Dr. George Polanco MD~ Signed [facility]07-01-2025 Hospital Discharge instructionsAdditional Instructions Date of Discharge: 04/27/25[facility] Work Phone: 1(958) 542-404207-01-2025 Discharge summary Author George Polanco [facility] Note Date/Time April 27, 2025 11:13 am [facility] Medical Records Department [address] [place] [address] Instructions for Home/Discharge Instructions 04/27/25 1112 MR#: [id number] Acct: [id number] Name: LISA LUCERO Rep #:[id number] : 1955 69 From: George Willis PCP: Dr. Phuc Martines, DO Status:AD M IN Discharge Instructions Diet Discharge Diet: Low fat / Low cholesterol and 2000 mg Sodium Diet DC O2, CPAP, BIPAP needs Home O2 Discharge instructions: Yes Type of respiratory needs?: Oxygen Oxygen frequency: Continuous Continuous oxygen liters per minute: 5 Dressing / Incision Weight Bearing Status: Weight bearing as tolerated Dressing / Incision Call your doctor if you observe: Fever of 101 or Higher, Coldness, Increased Pain, Numbness or Tingling, Change in Color, Inability to urinate, Inability to have a bowel movement, Shortness of breath, Dizziness, Fainting spells, Swellingin the ankles, Chest pain, Prolonged hiccupping, Increased palpitations (irregular heartbeat) and Calf discomfort Follow Up Care Test Results: Test results from this visit will be discussed in further detail at your follow- up appointment, if applicable. Discharge Plan Admission Admit Date/Time: 04/23/25 21:51 Primary Reason for Your Visit: A-fib RVR/CHF exacerbation Attending Provider: George Polanco Primary Care Provider: Phuc Martines Consulting Providers: Virginia Henriquez Discharge Orders/Prescriptions Prescriptions: New atorvastatin 40 mg Tablet 40 mg PO QHS 30 Days Qty: 30 2RF diltiazem HCl 180 mg Capsule,Extended Release 24hr 180 mg PO Q12 30 Days Qty: 60 1RF Continued cinnamon bark [Cinnamon] 500 mg capsule 500 mg PO QDAY mecobalamin (vitamin B12) 1,000 mcg tablet,chewable 1,000 mcg PO QDAY Oxygen, Home [Home Oxygen] 2 - 4 lpm NASAL QHS ascorbic acid (vitamin C) 500 mg capsule 500 mg PO DAILY PRN (Reason: supplement) Patient Comments: only takes in winter albuterol sulfate 90 mcg/actuation aerosol powdr breath activated 2 inh inhalation Q6H PRN (Reason: shortness of breath) [place]wayne Ellipta 200-62.5-25 mcg blister with device 1 ea inhalation DAILY ipratropium-albuterol 0.5 mg-3 mg(2.5 mg base)/3 mL solution for nebulization 3 ml inhalation Q6H PRN (Reason: shortness of breath) multivitamin [Daily Multi-Vitamin] Tablet 1 tab PO DAILY [place] Saline 0.65 % aerosol,spray 1 spray intranasal BID PRN (Reason: dry nasal passages) guaifenesin [Mucus Relief ER] 1,200 MG tablet 1,200 mg PO BID PRN (Reason: cough) metoprolol tartrate 50 mg Tablet 50 mg PO BID Qty: 60 2RF furosemide 40 mg tablet 40 mg PO BID Qty: 60 2RF potassium chloride [Klor-Con M20] 20 mEq tablet,ER particles/crystals 20 meq PO BID Qty: 60 2RF Eliquis 5 mg Tablet 5 mg PO BID Qty: 60 2RF nystatin 100,000 unit/gram cream 1 applic topical BID Discontinued nitrofurantoin monohyd/m-cryst 100 mg capsule 1 cap PO BID Referrals / Follow Up: Mercy Purvis MD [Med Staff - Active Staff] - Within 1 Month Yonathan Gonzalez DO [Med Staff - Active Staff] - Within 1 Month (Respiratory failure, COPD on oxygen) Phuc Martines DO [Primary Care Provider] - Within 2 Weeks Irina Elam PA [Med Staff - Adv Practice Prof] - Within 2 Weeks Disposition Disposition (needs filled in before D/C Order can be placed): Home Health Service 04/27/25 1113<Electronically signed by George Polanco MD>George Polanco MD CC: Dr. Virginia Henriquez MD; Dr. Phuc Martines DO ~ Signed [facility] Work Phone: 1(874) 125-910307-01-2025 Discharge summary [facility] Medical Records Department [address] [place] [address] Instructions for Home/Discharge Instructions 04/27/25 1112 MR#: [id number] Acct: [id number] Name: LISA LUCERO Rep #:[id number] : 1955 69 From: George Willis PCP: Dr. Phuc Martines, DO Status:AD M IN Discharge Instructions Diet Discharge Diet: Low fat / Low cholesterol and 2000 mg Sodium Diet DC O2, CPAP, BIPAP needs Home O2 Discharge instructions: Yes Type of respiratory needs?: Oxygen Oxygen frequency: ContinuousContinuous oxygen liters per minute: 5 Dressing / Incision Weight Bearing Status: Weight bearing as tolerated Dressing / Incision Call your doctor if you observe: Fever of 101 or Higher, Coldness, Increased Pain, Numbness or Tingling, Change in Color, Inability to urinate, Inability to have a bowel movement, Shortness of breath, Dizziness, Fainting spells, Swellingin the ankles, Chest pain, Prolonged hiccupping, Increased palpitations (irregular heartbeat) and Calf discomfort Follow Up Care Test Results: Test results from this visit will be discussed in further detail at your follow- up appointment, if applicable. Discharge Plan Admission Admit Date/Time: 04/23/25 21:51 Primary Reason for Your Visit: A-fib RVR/CHF exacerbation Attending Provider: George Polanco Primary Care Provider: Phuc Martines Consulting Providers: Virginia Henriquez Discharge Orders/Prescriptions Prescriptions: New atorvastatin 40 mg Tablet 40 mg PO QHS 30 Days Qty: 30 2RF diltiazem HCl 180 mg Capsule,Extended Release 24hr 180 mg PO Q12 30 Days Qty: 60 1RF Continued cinnamon bark [Cinnamon] 500 mg capsule 500 mg PO QDAY mecobalamin (vitamin B12) 1,000 mcg tablet,chewable 1,000 mcg PO QDAY Oxygen, Home [Home Oxygen] 2 - 4 lpm NASAL QHS ascorbic acid (vitamin C) 500 mg capsule 500 mg PO DAILY PRN (Reason: supplement) Patient Comments: only takes in winter albuterol sulfate 90 mcg/actuation aerosol powdr breath activated 2 inh inhalation Q6H PRN (Reason: shortness of breath) Trelegy Ellipta 200-62.5-25 mcg blister with device 1 ea inhalation DAILY ipratropium-albuterol 0.5 mg-3 mg(2.5 mg base)/3 mL solution for nebulization 3 ml inhalation Q6H PRN (Reason: shortness of breath) multivitamin [Daily Multi-Vitamin] Tablet 1 tab PO DAILY [place] Saline 0.65 % aerosol,spray 1 spray intranasal BID PRN (Reason: dry nasal passages) guaifenesin [Mucus Relief ER] 1,200 MG tablet 1,200 mg PO BID PRN (Reason: cough) metoprolol tartrate 50 mg Tablet 50 mg PO BID Qty: 60 2RF furosemide 40 mg tablet 40 mg PO BID Qty: 60 2RF potassium chloride [Klor-Con M20] 20 mEq tablet,ER particles/crystals 20 meq PO BID Qty: 60 2RF Eliquis 5 mg Tablet 5 mg PO BID Qty: 60 2RF nystatin 100,000 unit/gram cream 1 applic topical BID Discontinued nitrofurantoin monohyd/m-cryst 100 mg capsule 1 cap PO BID Referrals / Follow Up: Mercy Purvis MD [Med Staff - Active Staff] - Within 1 Month Yonathan Gonzalez DO [Med Staff - Active Staff] - Within 1 Month (Respiratory failure, COPD on oxygen) Phuc Martines DO [Primary Care Provider] - Within 2 Weeks Irina Elam PA [Med Staff - Adv Practice Prof] - Within 2 Weeks Disposition Disposition (needs filled in before D/C Order can be placed): Home Health Service 04/27/25 1113Pamilcar Polanco MD CC: Dr. Virginia Henriquez MD; Dr. Phuc Martines DO ~ Signed [facility]07-01-2025 [facility] Medical Records Department [address] [place] [id number] Discharge Summary 04/27/25 1113 MR#: [id number] Acct: [id number] Name: LISA LUCERO Rep #: [id number] : 1955 69 From: George Polanco MD PCP: Dr. Phuc Martines DO Status:ADM IN [id number] Prov[facility] Date of Admission: 04/23/25 Date of Discharge: 04/27/25 Primary Care Physician: Dr. Phuc Martines DO Reason For Visit: PAFLUTTER W/RVR, ? ACUTE VIRAL SYNDROME Diagnosis Discharge Diagnosis (1) Atrial flutter with rapid ventricular response: Status: Acute Code(s): I48.92 - Unspecified atrial flutter Plan The patient is a 69 y/o F admitted with fever 102 Fahrenheit on Saturday, URI symptoms nasal congestion, shortness of breath/dyspnea on her baseline 3 to 6 L of oxygen because of COPD and chronic alcohol use. No recent cough. There is concerned of UTI therefore was started on Macrobid but later on urine culture came back negative. She was tachycardic heart rate about 129 bpm in PCP office and was sent for admission. Denies chest pain abdominal pain nausea and vomiting #1. Mild COPD exacerbation from suspected viral infection: Patient is being admitted in the PCU. Currently on 6 L of oxygen. Patient is being managed on scheduled bronchodilator, Pulmicort aerosol twice daily, Mucinex, incentive spirometry and Pep. 04/25: Air entry has improved compared to yesterday. Continue bronchodilator treatment. 04/26: Patient on baseline oxygen 4 to 5 L/min. Home O2 qualification test ordered. Patient required 8 L on exertion therefore discharge canceled 04/27: Patient on baseline oxygen requirement 4 to 5 L. Patient did not meet criteria for SNF so will be going home. #2. Paroxsymal atrial flutter w/ RVR due to acute on chronic HFpEF: EKG in ED w/ atrial flutter w/ RVR. Patient administered Cardizem bolus and eventually placed on a drip in ED. Was started on Cardizem drip. Continue Eliquis. Cardizem drip is being tapered off, started on Cardizem 60 mg Q6 hourly. Recent echo on 02/19/2025 with borderline LV systolic function with LVEF 45 to 50%, moderate global RV systolic dysfunction, mild biatrial dilatation, moderate MVI, mild TBI, RVSP 53 mmHg Chest x-ray shows cardiomegaly and mild fluid congestion. Furosemide 40 mg IV twice daily 04/25: Heart rate is better controlled and 100s. Cardizem 60 mg Q6 hourly changed to Cardizem CD 120 mg Q12 hourly. Continue IV diuresis 04/26: Heart rate is controlled about 90s. Cardizem CD dose increased to 180 mg every 12 hourly and prescription for the same given. 04/27: Heart rate is better controlled. #3. UTI ruled out and possible Macrobid allergic: Patient was started on Macrobid for concern of UTI but she developed a rash therefore was discontinued. Urine culture also negative therefore UTI ruled out 04/26: Macrobid discontinued from the discharge med list. #4. EtOH Abuse, recently cutting back: Currently she drinks 2/day, total 14 drinks weekly and therefore advised to quit it. She was also told by her ladle handler Dr. Bryan Elena to be cautious will maintain on CIWA protocol, MVI, thiamine and folic acid. #5. Hypertension: Continue home regimen including Lasix, metoprolol, as needed hydralazine #6. Hyperlipidemia: Triglycerides 93, Cholesterol 138, LDL Cholesterol, Calc 81, VLDL Cholesterol 19, HDL Cholesterol 38 L, Cholesterol/HDL Ratio 3.62, TSH 1.970. Started on atorvastatin 20 mg daily. discharged on atorvastatin 40 mg daily #7. Morbid Obesity: Weight loss and lifestyle changes encouraged. #8. History of VTE: Patient with history of DVT, PE, continue Eliquis home regimen. #9. She quit smoking about 10 years ago. Total more than 40 pack years of a smoker #10. ROXY: Patient reports that she only uses supplemental oxygen, no PAP therapy. Follows floorworker lasting Dr. Diana gonzalez #11. DVT prophylaxis: Will continue patient on Eliquis regimen. #12. CODE status: Patient ARACELI is her daughter and living will is currently in place. Discussed CODE status at length including difference between FULL code, DNR-CCA and DNR-CC status. Following discussions about the differences in these status, requested Full Code status. Discharge medication reconciliation done. Discharge follow-up instructions completed. Discharge process discussed with the patient and all questions were answered to patient's satisfaction. Follow with PCP in 1 to 2 weeks Total time spent, exact 35 minutes on discharge meds reconciliation, examination, coordination of care with nurses and ancillary staff, review of imaging and blood test and discussion with the patient on follow-up instructions. Microbiology Past 72 Hours 04/24/25 01:36 Mucosa - Nasopharyngeal Respiratory Panel (PCR) - Final Laboratory Results 04/26/25 05:30: WBC 9.2, RBC 3.77 L, Hgb 11.6 L, Hct 38.8, MCV 102.9 H, MCH 30.8, MC (more content not included)...[facility]06-30-2025 Progress note Author George Polanco [facility] Note Date/Time April 26, 2025 3:[address] [facility] Medical Records Department [address] [place] [address] Progress Note - Hospitalist 04/26/25 1532 MR#: [id number] Acct: [id number] Name: LISA LUCERO Rep #:[id number] : 1955 69 From: George Willis PCP: Dr. Phuc Martines, DO Status:AD M IN Location: [place] [address] Reason for Visit Reason for Visit: Diagnoses Unspecified atrial flutter (04/23/25) Objective Data Objective Data Vital Signs: Vital Signs Temp Pulse Resp BP Pulse Ox O2 Del Method O2 Flow Rate 98.6 F 94 18 110/53 L 95 Nasal Cannula 5 04/26/25 15:26 04/26/25 15:26 04/26/25 15:26 04/26/25 15:26 04/26/25 15:26 04/26/25 15:26 04/26/25 15:26 Oxygen Flow Rate (L/min) 5 Oxygen Delivery Method Nasal Cannula Weight: 256 lb 2.834 oz Body Mass Index (BMI) 43.9 Intake & Output: Intake and Output for Last 24 Hours 04/24/25 04/25/25 04/26/25 23:59 23:59 23:59 Intake Total 853.16 / 853.16 715 / 835 520 / 520 Output Total 700 / 700 Balance 153.16 / 153.16 715 / 835 520 / 520 Lab / Micro Data 04/26/25 05:30 04/26/25 05:30 Labs: Laboratory Results - last 24 hr 04/26/25 05:30: WBC 9.2, RBC 3.77 L, Hgb 11.6 L, Hct 38.8, MCV 102.9 H, MCH 30.8, MCHC 29.9 L, RDW Std Deviation 54.2 H, RDW Coeff of Karly 14.3, Plt Count 266, MPV 11.1, Immature Gran % (Auto) 0.700, Neut % (Auto) 87.0 H, Lymph % (Auto) 5.2 L, [place] % (Auto) 5.9, Eos % (Auto) 0.9, Baso % (Auto) 0.3, Absolute Neuts (auto) 8.0 H, Absolute Lymphs (auto) 0.48 L, Nucleated RBC % 0, Sodium 142, Potassium 4.6, Chloride 96 L, Carbon Dioxide 37.1 H, Anion Gap 8, BUN 23 H,Creatinine 0.72, Estim Creat Clear Calc 85.43, Est GFR (MDRD) Non-Af 92, BUN/Creatinine Ratio 32.1 H, Glucose 125 H, Calcium 9.4 Micro: Microbiology 04/24/25 01:36 Mucosa - Nasopharyngeal Respiratory Panel (PCR) - Final Physical Exam Narrative Seen and examined. Patient required 8 L on exertion therefore discharge canceled Overall, shortness of breath is improved and patient is on baseline. Heart rhythm A-fib, heart rate is controlled currently on 5 L of oxygen Patient was admitted for SOB and, rapid heart rate, new onset atrial flutter, COPD on 3 to 6 L of oxygen at baseline and chronic alcohol use. Scheduled with ladle handler for possible ablation. Patient was also having fever and PCP concern for UTI Physical exam General: Alert, Oriented x3, Cooperative HEENT: Atraumatic, PERRLA, EOMI, Normocephalic. Oral: No Gingival or Mucosal Lesions/ Ulcerations Neck: Supple, No JVD, Negative Carotid Bruits Chest wall/Lungs: Air entry improved in all lung yu. Very fine bilateral expiratory rhonchi Cardiovascular: Irregular rate and rhythm, Normal S1,S2, systolic murmur Abdomen: Bowel Sounds Present, Soft, Non Tender, Non-Distended : No dysuria. No renal angle tenderness. No suprapubic tenderness. Extremities: Mild 1+ pitting edema, Capillary Refill Less than 3 Seconds Skin: No rashes, No breakdown Musculoskeletal: No Tenderness to Palpation of Joints or Extremities. ROM restricted Neurological: Cranial nerves II-XII grossly intact, DTR 2+/4. No acute focal neurological deficit. Psych/Mental Status: Normal Affect, Appropriate. Assessment & Plan Assessment/Plan (1) Atrial flutter with rapid ventricular response: PLAN: Plan The patient is a 69 y/o F admitted with fever 102 Fahrenheit on Saturday, URI symptoms nasal congestion, shortness of breath/dyspnea on her baseline 3 to 6 L of oxygen because of COPD and chronic alcohol use. No recent cough. There is concerned of UTI therefore was started on Macrobid but later on urine culture came back negative. She was tachycardic heart rate about 129 bpm in PCP office and was sent for admission. Denies chest pain abdominal pain nausea and vomiting #1. Mild COPD exacerbation from suspected viral infection: Patient is being admitted in the PCU. Currently on 6 L of oxygen. Patient is being managed on scheduled bronchodilator, Pulmicort aerosol twice daily, Mucinex, incentive spirometry and Pep. 04/25: Air entry has improved compared to yesterday. Continue bronchodilator treatment. 04/26: Patient on baseline oxygen 4 to 5 L/min. Home O2 qualification test ordered. Patient required 8 L on exertion therefore discharge canceled #2. Paroxsymal atrial flutter w/ RVR due to acute on chronic HFpEF: EKG in ED w/ atrial flutter w/ RVR. Patient administered Cardizem bolus and eventually placed on a drip in ED. Was started on Cardizem drip. Continue Eliquis. Cardizem drip is being tapered off, started on Cardizem 60 mg Q6 hourly. Recent echo on 02/19/2025 with borderline LV systolic function with LVEF 45 to 50%, moderate global RV systolic dysfunction, mild biatrial dilatation, moderateMVI, mild TBI, RVSP 53 mmHg Chest x-ray shows cardiomegaly and mild fluid congestion. Furosemide 40 mg IV twice daily 04/25: Heart rate is better controlled and 100s. Cardizem 60 mg Q6 hourly changed to Cardizem CD 120 mg Q12 hourly. Continue IV diuresis 04/26: Heart rate is controlled about 90s. Cardizem CD dose increased to 180 mg every 12 hourly and prescription for the same given. #3. UTI ruled out and possible Macrobid allergic: Patient was started on Macrobid for concern of UTI but she developed a rash therefore was discontinued. Urine culture also negative therefore UTI ruled out 04/26: Macrobid discontinued from the discharge med list. #4. EtOH Abuse, recently cutting back: Currently she drinks 2/day, total 14 drinks weekly and therefore advised to quit it. She was also told by her ladle handler Dr. Bryan Elena to be cautious will maintain on CIWA protocol, MVI, thiamine and folic acid. #5. Hypertension: Continue home regimen including Lasix, metoprolol, as needed hydralazine #6. Hyperlipidemia: Triglycerides 93, Cholesterol 138, LDL Cholesterol, Calc 81, VLDL Cholesterol 19, HDL Cholesterol 38 L, Cholesterol/HDL Ratio 3.62, TSH 1.970. Started on atorvastatin 20 mg daily. discharged on atorvastatin 40 mg daily #7. Morbid Obesity: Weight loss and lifestyle changes encouraged. #8. History of VTE: Patient with history of DVT, PE, continue Eliquis home regimen. #9. She quit smoking about 10 years ago. Total more than 40 pack years of a smoker #10. ROXY: Patient reports that she only uses supplemental oxygen, no PAP therapy. Follows floorworker lasting Dr. Diana gonzalez #11. DVT prophylaxis: Will continue patient on Eliquis regimen. #12. CODE status: Patient ARACELI is her daughter and living will is currently inplace. Discussed CODE status at length including difference between FULL code, DNR-CCA and DNR-CC status. Following discussions about the differences in these status, requested Full Code status. Microbiology Past 72 Hours 04/24/25 01:36 Mucosa - Nasopharyngeal Respiratory Panel (PCR) - Final Laboratory Results 04/26/25 05:30: WBC 9.2, RBC 3.77 L, Hgb 11.6 L, Hct 38.8, MCV 102.9 H, MCH 30.8, MCHC 29.9 L, RDW Std Deviation 54.2 H, RDW Coeff of Karly 14.3, Plt Count 266, MPV 11.1, Immature Gran % (Auto) 0.700, Neut % (Auto) 87.0 H, Lymph % (Auto) 5.2 L, [place] % (Auto) 5.9, Eos % (Auto) 0.9, Baso % (Auto) 0.3, Absolute Neuts (auto) 8.0 H, Absolute Lymphs (auto) 0.48 L, Nucleated RBC % 0, Sodium 142, Potassium 4.6, Chloride 96 L, Carbon Dioxide 37.1 H, Anion Gap 8, BUN 23 H,Creatinine 0.72, Estim Creat Clear Calc 85.43, Est GFR (MDRD) Non-Af 92, BUN/Creatinine Ratio 32.1 H, Glucose 125 H, Calcium 9.4 Charges/Coding Visit Charges Inpatient E&M: 40610 Subs Hosp L2 04/26/25 7087 <Electronically signed by George Polanco MD> Cosigner Signature (if applicable): CC: ~ Signed [facility] Work Phone: [phone] 736-202806-30-2025 Progress note [facility] Medical Records Department [address] [place] [address] Progress Note - Hospitalist 04/26/25 1532 MR#: [id number] Acct: [id number] Name: LISA LUCERO Rep #:[id number] : 1955 69 From: George Willis PCP: Dr. Phuc Martines, DO Status:AD M IN Location: [place] [address] Reason for Visit Reason for Visit: Diagnoses Unspecified atrial flutter (04/23/25) Objective Data Objective Data Vital Signs: Vital Signs Temp Pulse Resp BP Pulse Ox O2 Del Method O2 Flow Rate 98.6 F 94 18 110/53 L 95 Nasal Cannula 5 04/26/25 15:26 04/26/25 15:26 04/26/25 15:26 04/26/25 15:26 04/26/25 15:26 04/26/25 15:26 04/26/25 15:26 Oxygen Flow Rate (L/min) 5 Oxygen Delivery Method Nasal Cannula Weight: 256 lb 2.834 oz Body Mass Index (BMI) 43.9 Intake & Output: Intake and Output for Last 24 Hours 04/24/25 04/25/25 04/26/25 23:59 23:59 23:59 Intake Total 853.16 / 853.16 715 / 835 520 / 520 Output Total 700 / 700 Balance 153.16 / 153.16 715 / 835 520 / 520 Lab / Micro Data 04/26/25 05:30 04/26/25 05:30 Labs: Laboratory Results - last 24 hr 04/26/25 05:30: WBC 9.2, RBC 3.77 L, Hgb 11.6 L, Hct 38.8, MCV 102.9 H, MCH 30.8, MCHC 29.9 L, RDW Std Deviation 54.2 H, RDW Coeff of Karly 14.3, Plt Count 266, MPV 11.1, Immature Gran % (Auto) 0.700, Neut % (Auto) 87.0 H, Lymph % (Auto) 5.2 L, [place] % (Auto) 5.9, Eos % (Auto) 0.9, Baso % (Auto) 0.3, Absolute Neuts (auto) 8.0 H, Absolute Lymphs (auto) 0.48 L, Nucleated RBC % 0, Sodium 142, Potassium4.6, Chloride 96 L, Carbon Dioxide 37.1 H, Anion Gap 8, BUN 23 H,Creatinine 0.72, Estim Creat ClearCalc 85.43, Est GFR (MDRD) Non-Af 92, BUN/Creatinine Ratio 32.1 H, Glucose 125 H, Calcium 9.4 Micro: Microbiology 04/24/25 01:36 Mucosa - Nasopharyngeal Respiratory Panel (PCR) - Final Physical Exam Narrative Seen and examined. Patient required 8 L on exertion therefore discharge canceled Overall, shortness of breath is improved and patient is on baseline. Heart rhythm A-fib, heart rateis controlled currently on 5 L of oxygen Patient was admitted for SOB and, rapid heart rate, new onset atrial flutter, COPD on 3 to 6 L of oxygen at baseline and chronic alcohol use. Scheduled with ladle handler for possible ablation. Patient was also having fever and PCP concern for UTI Physical exam General: Alert, Oriented x3, Cooperative HEENT: Atraumatic, PERRLA, EOMI, Normocephalic. Oral: No Gingival or Mucosal Lesions/ Ulcerations Neck: Supple, No JVD, Negative Carotid Bruits Chest wall/Lungs: Air entry improved in all lung yu. Very fine bilateral expiratory rhonchi Cardiovascular: Irregular rate and rhythm, Normal S1,S2, systolic murmur Abdomen: Bowel Sounds Present, Soft, Non Tender, Non-Distended : No dysuria. No renal angle tenderness. No suprapubic tenderness. Extremities: Mild 1+ pitting edema, Capillary Refill Less than 3 Seconds Skin: No rashes, No breakdown Musculoskeletal: No Tenderness to Palpation of Joints or Extremities. ROM restricted Neurological: Cranial nerves II-XII grossly intact, DTR 2+/4. No acute focal neurological deficit. Psych/Mental Status: Normal Affect, Appropriate. Assessment & Plan Assessment/Plan (1) Atrial flutter with rapid ventricular response: PLAN: Plan The patient is a 69 y/o F admitted with fever 102 Fahrenheit on Saturday, URI symptoms nasal congestion, shortness of breath/dyspnea on her baseline 3 to 6 L of oxygen because of COPD and chronic alcohol use. No recent cough. There is concerned of UTI therefore was started on Macrobid but later on urine culture came back negative. She was tachycardic heart rate about 129 bpm in PCP office and wassent for admission. Denies chest pain abdominal pain nausea and vomiting #1. Mild COPD exacerbation from suspected viral infection: Patient is being admitted in the PCU. Currently on 6 L of oxygen. Patient is being managed on scheduled bronchodilator, Pulmicort aerosol twice daily, Mucinex, incentive spirometry and Pep. 04/25: Air entry has improved compared to yesterday. Continue bronchodilator treatment. 04/26: Patient on baseline oxygen 4 to 5 L/min. Home O2 qualification test ordered. Patient required8 L on exertion therefore discharge canceled #2. Paroxsymal atrial flutter w/ RVR due to acute on chronic HFpEF: EKG in ED w/ atrial flutter w/ RVR. Patient administered Cardizem bolus and eventually placed on a drip in ED. Was started on Cardizem drip. Continue Eliquis. Cardizem drip is being tapered off, started on Cardizem 60 mg Q6 hourly. Recent echo on 02/19/2025 with borderline LV systolic function with LVEF 45 to 50%, moderate global RV systolic dysfunction, mild biatrial dilatation, moderateMVI, mild TBI, RVSP 53 mmHg Chest x-ray shows cardiomegaly and mild fluid congestion. Furosemide 40 mg IV twice daily 04/25: Heart rate is better controlled and 100s. Cardizem 60 mg Q6 hourly changed to Cardizem CD 120mg Q12 hourly. Continue IV diuresis 04/26: Heart rate is controlled about 90s. Cardizem CD dose increased to 180 mg every 12 hourly and prescription for the same given. #3. UTI ruled out and possible Macrobid allergic: Patient was started on Macrobid for concern of UTI but she developed a rash therefore was discontinued. Urine culture also negative therefore UTI ruled out 04/26: Macrobid discontinued from the discharge med list. #4. EtOH Abuse, recently cutting back: Currently she drinks 2/day, total 14 drinks weekly and therefore advised to quit it. She was also told by her ladle handler Dr. Bryan Elena to be cautious will maintain on CIWA protocol, MVI, thiamine and folic acid. #5. Hypertension: Continue home regimen including Lasix, metoprolol, as needed hydralazine #6. Hyperlipidemia: Triglycerides 93, Cholesterol 138, LDL Cholesterol, Calc 81, VLDL Cholesterol 19, HDL Cholesterol 38 L, Cholesterol/HDL Ratio 3.62, TSH 1.970. Started on atorvastatin 20 mg daily. discharged on atorvastatin 40 mg daily #7. Morbid Obesity: Weight loss and lifestyle changes encouraged. #8. History of VTE: Patient with history of DVT, PE, continue Eliquis home regimen. #9. She quit smoking about 10 years ago. Total more than 40 pack years of a smoker #10. ROXY: Patient reports that she only uses supplemental oxygen, no PAP therapy. Follows floorworker lasting Dr. Diana gonzalez #11. DVT prophylaxis: Will continue patient on Eliquis regimen. #12. CODE status: Patient ARACELI is her daughter and living will is currently inplace. Discussed CODE status at length including difference between FULL code, DNR-CCA and DNR-CC status. Following discussions about the differences in these status, requested Full Code status. Microbiology Past 72 Hours 04/24/25 01:36 Mucosa - Nasopharyngeal Respiratory Panel (PCR) - Final Laboratory Results 04/26/25 05:30: WBC 9.2, RBC 3.77 L, Hgb 11.6 L, Hct 38.8, MCV 102.9 H, MCH 30.8, MCHC 29.9 L, RDW Std Deviation 54.2 H, RDW Coeff of Karly 14.3, Plt Count 266, MPV 11.1, Immature Gran % (Auto) 0.700, Neut % (Auto) 87.0 H, Lymph % (Auto) 5.2 L, [place] % (Auto) 5.9, Eos % (Auto) 0.9, Baso % (Auto) 0.3, Absolute Neuts (auto) 8.0 H, Absolute Lymphs (auto) 0.48 L, Nucleated RBC % 0, Sodium 142, Potassium4.6, Chloride 96 L, Carbon Dioxide 37.1 H, Anion Gap 8, BUN 23 H,Creatinine 0.72, Estim Creat ClearCalc 85.43, Est GFR (MDRD) Non-Af 92, BUN/Creatinine Ratio 32.1 H, Glucose 125 H, Calcium 9.4 Charges/Coding Visit Charges Inpatient E&M: 53280 Subs Hosp L2 04/26/25 1533 Cosigner Signature (if applicable): CC: ~ Signed [facility]06-30-2025 Consult note Author Brandan Rodas [facility] Note Date/Time April 27, 2025 4:05p m [facility] Medical Records Department [address] [place] [address] Counseling Note - Pharmacy 04/26/25 1022 MR#: [id number] Acct: [id number] Name: LISA LUCERO Rep #:[id number] : 1955 69 From: Brandan Rodas PCP: Dr. Phuc Martines, DO Status:AD M IN Y Location: [place] [address] Pharmacy [facility] Counseling Pharmacy Service has performed discharge medication reconciliation and counseling for this patient. 1. ATORVASTATIN 40MG PO QHS 2. DILTIAZEM CD 180MG PO Q12 The patient's discharge medication list was reviewed [...] verbally demonstrate an understanding of their dischargemedications. Medications at Discharge Home Medications Oxygen, Home [Home Oxygen] 2 - 4 lpm QHS sob/copd 11/13/17 albuterol sulfate 90 mcg/actuation breath activated powder inhaler 2 inh inhalation Q6H PRN shortness of breath 02/19/25 fluticasone fur. 200 mcg-umeclid 62.5 mcg-vilant 25 mcg inhalat.powder (Trelegy Ellipta) 1 ea inhalation DAILY sob 02/19/25 guaifenesin 1,200 mg tablet, extended release 12 hr (Mucus Relief ER) 1,200 mg PO BID PRN cough 02/19/25 ipratropium 0.5 mg-albuterol 3 mg (2.5 mg base)/3 mL nebulization soln 3 ml inhalation Q6H PRN shortness of breath 02/19/25 multivitamin (Daily Multi-Vitamin tablet) 1 tab PO DAILY supplement 02/19/25 sodium chloride 0.65 % nasal spray aerosol (White House Saline) 1 spray intranasal BID PRN dry nasal passages 02/19/25 apixaban 5 mg tablet (Eliquis) 5 mg PO BID blood thinner #60 tabs 02/23/25 furosemide 40 mg tablet 40 mg PO BID diuretic #60 tabs 02/23/25 metoprolol tartrate 50 mg tablet 50 mg PO BID blood pressure #60 tabs 02/23/25 potassium chloride 20 mEq tablet,extended release(part/cryst) (Klor-Con M) 20 meq PO BID supplement #60 tabs 02/23/25 ascorbic acid (vitamin C) 500 mg capsule 500 mg PO DAILY PRN supplement 03/30/25 cinnamon bark 500 mg capsule (Cinnamon) 500 mg PO QDAY supplement 03/30/25 mecobalamin (vitamin B12) 1,000 mcg chewable tablet 1,000 mcg PO QDAY [id number] nystatin 100,000 unit/gram topical cream 1 applic topical BID skin rash 04/23/25 atorvastatin 40 mg tablet 40 mg PO QHS 30 days #30 tabs 04/26/25 diltiazem HCl 180 mg capsule,extended release 24 hr 180 mg PO Q12 30 days #60 caps 04/26/25 04/26/25 1022 <Electronically signed by Brandan Rodas> Date _ Brandan Rodas Cosigner Signature (if applicable): Date CC: ~ Signed [facility] Work Phone: [phone] Discharge summary Author George Polanco [facility] Note Date/Time April 26, 2025 9:38 am [facility] Medical Records Department [address] [place] [address] Discharge Summary 04/26/25 0932 MR#: [id number] Acct: [id number] Name: LISA LUCERO Rep #:[id number] : 1955 69 From: George Willis PCP: Dr. Phuc Martines, DO Status:AD M IN Location: [facility] [id number] Providers Date of Admission: 04/23/25 Date of Discharge: 04/26/25 Primary Care Physician: Dr. Phuc Martines, DO Reason For Visit: PAFLUTTER W/RVR, ? ACUTE VIRAL SYNDROME Diagnosis Discharge Diagnosis (1) Atrial flutter with rapid ventricular response: Status: Acute Code(s): I48.92 - Unspecified atrial flutter Plan The patient is a 69 y/o F admitted with fever 102 Fahrenheit on Saturday, URI symptoms nasal congestion, shortness of breath/dyspnea on her baseline 3 to 6 L of oxygen because of COPD and chronic alcohol use. No recent cough. There is concerned of UTI therefore was started on Macrobid but later on urine culture came back negative. She was tachycardic heart rate about 129 bpm in PCP office and was sent for admission. Denies chest pain abdominal pain nausea and vomiting #1. Mild COPD exacerbation from suspected viral infection: Patient is being admitted in the PCU. Currently on 6 L of oxygen. Patient is being managed on scheduled bronchodilator, Pulmicort aerosol twice daily, Mucinex, incentive spirometry and Pep. 04/25: Air entry has improved compared to yesterday. Continue bronchodilator treatment. 04/26: Patient on baseline oxygen 4 to 5 L/min. Home O2 qualification test ordered. Patient is medically stable for discharge. #2. Paroxsymal atrial flutter w/ RVR due to acute on chronic HFpEF: EKG in ED w/ atrial flutter w/ RVR. Patient administered Cardizem bolus and eventually placed on a drip in ED. Was started on Cardizem drip. Continue Eliquis. Cardizem drip is being tapered off, started on Cardizem 60 mg Q6 hourly. Recent echo on 02/19/2025 with borderline LV systolic function with LVEF 45 to 50%, moderate global RV systolic dysfunction, mild biatrial dilatation, moderateMVI, mild TBI, RVSP 53 mmHg Chest x-ray shows cardiomegaly and mild fluid congestion. Furosemide 40 mg IV twice daily 04/25: Heart rate is better controlled and 100s. Cardizem 60 mg Q6 hourly changed to Cardizem CD 120 mg Q12 hourly. Continue IV diuresis 04/26: Heart rate is controlled about 90s. Cardizem CD dose increased to 180 mg every 12 hourly and prescription for the same given. Discharged on metoprolol and Cardizem CD #3. UTI ruled out and possible Macrobid allergic: Patient was started on Macrobid for concern of UTI but she developed a rash therefore was discontinued. Urine culture also negative therefore UTI ruled out 04/26: Macrobid discontinued from the discharge med list. #4. EtOH Abuse, recently cutting back: Currently she drinks 2/day, total 14 drinks weekly and therefore advised to quit it. She was also told by her ladle handler Dr. Bryan Elena to be cautious will maintain on CIWA protocol, MVI, thiamine and folic acid. #5. Hypertension: Continue home regimen including Lasix, metoprolol, as needed hydralazine #6. Hyperlipidemia: Triglycerides 93, Cholesterol 138, LDL Cholesterol, Calc 81, VLDL Cholesterol 19, HDL Cholesterol 38 L, Cholesterol/HDL Ratio 3.62, TSH 1.970. Started on atorvastatin 20 mg daily. discharged on atorvastatin 40 mg daily, prescription given #7. Morbid Obesity: Weight loss and lifestyle changes encouraged. #8. History of VTE: Patient with history of DVT, PE, continue Eliquis home regimen. #9. She quit smoking about 10 years ago. Total more than 40 pack years of a smoker #10. ROXY: Patient reports that she only uses supplemental oxygen, no PAP therapy. Follows floorworker lasting Dr. Diana gonzalez #11. DVT prophylaxis: Will continue patient on Eliquis regimen. #12. CODE status: Patient ARACELI is her daughter and living will is currently inplace. Discussed CODE status at length including difference between FULL code, DNR-CCA and DNR-CC status. Following discussions about the differences in these status, requested Full Code status. Discharge medication reconciliation done. Discharge follow-up instructions completed. Discharge process discussed with the patient and all questions wereanswered to patient's satisfaction. Follow with PCP in 1 to 2 weeks Total time spent, exact 35 minutes on discharge meds reconciliation, examination, coordination of care with nurses and ancillary staff, review of imaging and blood test and discussion with the patient on follow-up instructions. Microbiology Past 72 Hours 04/24/25 01:36 Mucosa - Nasopharyngeal Respiratory Panel (PCR) - Final Laboratory Results 04/25/25 06:18: WBC 8.7, RBC 3.85 L, Hgb 11.9 L, Hct 39.3, MCV 102.1 H, MCH 30.9, MCHC 30.3 L, RDW Std Deviation 54.5 H, RDW Coeff of Karly 14.5, Plt Count 286, MPV 10.1, Immature Gran % (Auto) 0.300, Neut % (Auto) 85.7 H, Lymph % (Auto) 6.3 L, [place] % (Auto) 6.2, Eos % (Auto) 1.0, Baso % (Auto) 0.5, Absolute Neuts (auto) 7.5, Absolute Lymphs (auto) 0.55 L, Nucleated RBC % 0, Sodium 141, Potassium 4.3, Chloride 95 L, Carbon Dioxide 36.5 H, Anion Gap 9, BUN 17, Creatinine 0.67 L, Estim Creat Clear Calc 84.48, Est GFR (MDRD) Non-Af 96, BUN/Creatinine Ratio 25.0 H, Glucose 130 H, Calcium 9.3 04/24/25 05:42: Sodium 146 H, Potassium 4.6, Chloride 100, Carbon Dioxide 38.0 H, Anion Gap 8, BUN 13, Creatinine 0.63 L, Estim Creat Clear Calc 85.25, Est GFR (MDRD) Non-Af 97, BUN/Creatinine Ratio 20.9 H, Glucose 144 H, Calcium 9.4, TotalBilirubin 0.44, AST 21, ALT 30, Alkaline Phosphatase 112 H, Total Protein 6.6, Albumin 3.3 L, Globulin 3.3, Albumin/Globulin Ratio 1.0, Triglycerides 93, Cholesterol 138, LDL Cholesterol, Calc 81, VLDL Cholesterol 19, HDL Cholesterol 38 L, Cholesterol/HDL Ratio 3.62, TSH 1.970 Medications at Discharge Home Medications Oxygen, Home [Home Oxygen] 2 - 4 lpm QHS sob/copd 11/13/17 albuterol sulfate 90 mcg/actuation breath activated powder inhaler 2 inh inhalation Q6H PRN shortness of breath 02/19/25 fluticasone fur. 200 mcg-umeclid 62.5 mcg-vilant 25 mcg inhalat.powder (Trelegy Ellipta) 1 ea inhalation DAILY sob 02/19/25 guaifenesin 1,200 mg tablet, extended release 12 hr (Mucus Relief ER) 1,200 mg PO BID PRN cough 02/19/25 ipratropium 0.5 mg-albuterol 3 mg (2.5 mg base)/3 mL nebulization soln 3 ml inhalation Q6H PRN shortness of breath 02/19/25 multivitamin (Daily Multi-Vitamin tablet) 1 tab PO DAILY supplement 02/19/25 sodium chloride 0.65 % nasal spray aerosol (White House Saline) 1 spray intranasal BID PRN dry nasal passages 02/19/25 apixaban 5 mg tablet (Eliquis) 5 mg PO BID blood thinner #60 tabs 02/23/25 furosemide 40 mg tablet 40 mg PO BID diuretic #60 tabs 02/23/25 metoprolol tartrate 50 mg tablet 50 mg PO BID blood pressure #60 tabs 02/23/25 potassium chloride 20 mEq tablet,extended release(part/cryst) (Klor-Con M) 20 meq PO BID supplement #60 tabs 02/23/25 ascorbic acid (vitamin C) 500 mg capsule 500 mg PO DAILY PRN supplement 03/30/25 cinnamon bark 500 mg capsule (Cinnamon) 500 mg PO QDAY supplement 03/30/25 mecobalamin (vitamin B12) 1,000 mcg chewable tablet 1,000 mcg PO QDAY [id number]/25 nystatin 100,000 unit/gram topical cream 1 applic topical BID skin rash 04/23/25 atorvastatin 40 mg tablet 40 mg PO QHS 30 days #30 tabs 04/26/25 diltiazem HCl 180 mg capsule,extended release 24 hr 180 mg PO Q12 30 days #60 caps 04/26/25 Hospital Course Summary of Care Provided Hospital Course: Microbiology Past 72 Hours 04/24/25 01:36 Mucosa - Nasopharyngeal Respiratory Panel (PCR) - Final Laboratory Results 04/26/25 05:30: WBC 9.2, RBC 3.77 L, Hgb 11.6 L, Hct 38.8, MCV 102.9 H, MCH 30.8, MCHC 29.9 L, RDW Std Deviation 54.2 H, RDW Coeff of Karly 14.3, Plt Count 266, MPV 11.1, Immature Gran % (Auto) 0.700, Neut % (Auto) 87.0 H, Lymph % (Auto) 5.2 L, [place] % (Auto) 5.9, Eos % (Auto) 0.9, Baso % (Auto) 0.3, Absolute Neuts (auto) 8.0 H, Absolute Lymphs (auto) 0.48 L, Nucleated RBC % 0, Sodium 142, Potassium 4.6, Chloride 96 L, Carbon Dioxide 37.1 H, Anion Gap 8, BUN 23 H,Creatinine 0.72, Estim Creat Clear Calc 85.43, Est GFR (MDRD) Non-Af 92, BUN/Creatinine Ratio 32.1 H, Glucose 125 H, Calcium 9.4 Physical Exam Narrative Seen and examined. Shortness of breath is improved and patient is on baseline. Heart rhythm A- fib,heart rate is controlled currently on 5 L of oxygen Patient was admitted for SOB and, rapid heart rate, new onset atrial flutter, COPD on 3 to 6 L of oxygen at baseline and chronic alcohol use. Scheduled with ladle handler for possible ablation. Patient was also having fever and PCP concern for UTI Physical exam General: Alert, Oriented x3, Cooperative HEENT: Atraumatic, PERRLA, EOMI, Normocephalic. Oral: No Gingival or Mucosal Lesions/ Ulcerations Neck: Supple, No JVD, Negative Carotid Bruits Chest wall/Lungs: Air entry improved in all lung yu. Very fine bilateral expiratory rhonchi Cardiovascular: Irregular rate and rhythm, Normal S1,S2, systolic murmur Abdomen: Bowel Sounds Present, Soft, Non Tender, Non-Distended : No dysuria. No renal angle tenderness. No suprapubic tenderness. Extremities: Mild 1+ pitting edema, Capillary Refill Less than 3 Seconds Skin: No rashes, No breakdown Musculoskeletal: No Tenderness to Palpation of Joints or Extremities. ROM restricted Neurological: Cranial nerves II-XII grossly intact, DTR 2+/4. No acute focal neurological deficit. Psych/Mental Status: Normal Affect, Appropriate. Weight / BMI Weight Weight: 256 lb 2.834 oz Body Mass Index (BMI) 43.9 ABG / Lab / Microbiology Data 04/26/25 05:30 04/26/25 05:30 Laboratory: Laboratory Results - last 24 hr 04/26/25 05:30: WBC 9.2, RBC 3.77 L, Hgb 11.6 L, Hct 38.8, MCV 102.9 H, MCH 30.8, MCHC 29.9 L, RDW Std Deviation 54.2 H, RDW Coeff of Karly 14.3, Plt Count 266, MPV 11.1, Immature Gran % (Auto) 0.700, Neut % (Auto) 87.0 H, Lymph % (Auto) 5.2 L, [place] % (Auto) 5.9, Eos % (Auto) 0.9, Baso % (Auto) 0.3, Absolute Neuts (auto) 8.0 H, Absolute Lymphs (auto) 0.48 L, Nucleated RBC % 0, Sodium 142, Potassium 4.6, Chloride 96 L, Carbon Dioxide 37.1 H, Anion Gap 8, BUN 23 H,Creatinine 0.72, Estim Creat Clear Calc 85.43, Est GFR (MDRD) Non-Af 92, BUN/Creatinine Ratio 32.1 H, Glucose 125 H, Calcium 9.4 Microbiology: Microbiology 04/24/25 01:36 Mucosa - Nasopharyngeal Respiratory Panel (PCR) - Final D/C Instructions Discharge Diet: Low fat / Low cholesterol and 2000 mg Sodium Diet Weight Bearing Status: Weight bearing as tolerated Call your doctor if you observe: Fever of 101 or Higher, Coldness, Increased Pain, Numbness or Tingling, Change in Color, Inability to urinate, Inability to have a bowel movement, Shortness of breath, Dizziness, Fainting spells, Swellingin the ankles, Chest pain, Prolonged hiccupping, Increased palpitations (irregular heartbeat) and Calf discomfort DC O2, CPAP, BIPAP Needs Home O2 Discharge instructions: Yes Type of respiratory needs?: Oxygen Oxygen frequency: Continuous Continuous oxygen liters per minute: 5 DC home with Oxygen: Yes Home O2 MD Review: I have reviewed the oxygen testing, and the patient qualifies for home oxygen equipment and portability. The patient is mobile in the home and the community. When: IN 2 WEEKS Meaningful Use Info Meaningful Use Meaningful Use Diagnoses (Choose all that apply): CHF CHF NINA/ARB ordered at discharge?: No Reason NINA/ARB not ordered?: Hypotension and Normal EF Documented LVEF (%): 50 Ischemic Stroke Statin Dosing Therapy Reference: STATIN [...] Simvastatin 80mg Discharge Plan Admission Admit Date/Time: 04/23/25 21:51 Primary Reason for Your Visit: A-fib RVR/CHF exacerbation Attending Provider: George Polanco Primary Care Provider: Phuc Martines Consulting Providers: Virginia Henriquez Discharge Orders/Prescriptions Prescriptions: New atorvastatin 40 mg Tablet 40 mg PO QHS 30 Days Qty: 30 2RF diltiazem HCl 180 mg Capsule,Extended Release 24hr 180 mg PO Q12 30 Days Qty: 60 1RF Continued cinnamon bark [Cinnamon] 500 mg capsule 500 mg PO QDAY mecobalamin (vitamin B12) 1,000 mcg tablet,chewable 1,000 mcg PO QDAY Oxygen, Home [Home Oxygen] 2 - 4 lpm NASAL QHS ascorbic acid (vitamin C) 500 mg capsule 500 mg PO DAILY PRN (Reason: supplement) Patient Comments: only takes in winter albuterol sulfate 90 mcg/actuation aerosol powdr breath activated 2 inh inhalation Q6H PRN (Reason: shortness of breath) Trelegy Ellipta 200-62.5-25 mcg blister with device 1 ea inhalation DAILY ipratropium-albuterol 0.5 mg-3 mg(2.5 mg base)/3 mL solution for nebulization 3 ml inhalation Q6H PRN (Reason: shortness of breath) multivitamin [Daily Multi-Vitamin] Tablet 1 tab PO DAILY [place] Saline 0.65 % aerosol,spray 1 spray intranasal BID PRN (Reason: dry nasal passages) guaifenesin [Mucus Relief ER] 1,200 MG tablet 1,200 mg PO BID PRN (Reason: cough) metoprolol tartrate 50 mg Tablet 50 mg PO BID Qty: 60 2RF furosemide 40 mg tablet 40 mg PO BID Qty: 60 2RF potassium chloride [Klor-Con M20] 20 mEq tablet,ER particles/crystals 20 meq PO BID Qty: 60 2RF Eliquis 5 mg Tablet 5 mg PO BID Qty: 60 2RF nystatin 100,000 unit/gram cream 1 applic topical BID Discontinued nitrofurantoin monohyd/m-cryst 100 mg capsule 1 cap PO BID Referrals / Follow Up: Mercy Purvis MD [Med Staff - Active Staff] - Within 1 Month Yonathan Gonzalez DO [Med Staff - Active Staff] - Within 1 Month (Respiratory failure, COPD on oxygen) Phuc Martines DO [Primary Care Provider] - Within 2 Weeks Irina Elam PA [Med Staff - Adv Practice Prof] - Within 2 Weeks Disposition Disposition (needs filled in before D/C Order can be placed): Home, Self Care Charges/Coding Visit Charges Inpatient E&M: 64051 Disch Hosp >30min 04/26/25 0938 <Electronically signed by George Polanco MD> Cosigner Signature (if applicable): CC: Dr. Phuc Martines DO; Dr. George Polanco MD~ Signed [facility] Work Phone: [phone]) 856-648606-30-2025 Discharge summary Author George Polanco [facility] Note Date/Time April 26, 2025 9:[address] [facility] Medical Records Department [address] [place] [id number] Instructions for Home/Discharge Instructions 04/26/25918 MR#: [id number] Acct: [id number] Name: LISA LUCERO Rep #:[id number] : 1955 69 From: George Willis PCP: Dr. Phuc Martines DO Status:AD M IN Discharge Instructions Diet Discharge Diet: Low fat / Low cholesterol and 2000 mg Sodium Diet DC O2, CPAP, BIPAP needs Home O2 Discharge instructions: Yes Type of respiratory needs?: Oxygen Oxygen frequency: Continuous Continuous oxygen liters per minute: 5 Dressing / Incision Discharge Activity: Return to Normal Activity Weight Bearing Status: Weight bearing as tolerated Dressing / Incision Call your doctor if you observe: Fever of 101 or Higher, Coldness, Increased Pain, Numbness or Tingling, Change in Color, Inability to urinate, Inability to have a bowel movement, Shortness of breath, Dizziness, Fainting spells, Swellingin the ankles, Chest pain, Prolonged hiccupping, Increased palpitations (irregular heartbeat) and Calf discomfort Follow Up Care When: IN 2 WEEKS Test Results: Test results from this visit will be discussed in further detail at your follow- up appointment, if applicable. Discharge Plan Admission Admit Date/Time: 04/23/25 21:51 Primary Reason for Your Visit: A-fib RVR/CHF exacerbation Attending Provider: George Polanco Primary Care Provider: Phuc Martines Consulting Providers: Virginia Henriquez Discharge Orders/Prescriptions Prescriptions: New atorvastatin 40 mg Tablet 40 mg PO QHS 30 Days Qty: 30 2RF diltiazem HCl 180 mg Capsule,Extended Release 24hr 180 mg PO Q12 30 Days Qty: 60 1RF Continued cinnamon bark [Cinnamon] 500 mg capsule 500 mg PO QDAY mecobalamin (vitamin B12) 1,000 mcg tablet,chewable 1,000 mcg PO QDAY Oxygen, Home [Home Oxygen] 2 - 4 lpm NASAL QHS ascorbic acid (vitamin C) 500 mg capsule 500 mg PO DAILY PRN (Reason: supplement) Patient Comments: only takes in winter albuterol sulfate 90 mcg/actuation aerosol powdr breath activated 2 inh inhalation Q6H PRN (Reason: shortness of breath) Trelegy Ellipta 200-62.5-25 mcg blister with device 1 ea inhalation DAILY ipratropium-albuterol 0.5 mg-3 mg(2.5 mg base)/3 mL solution for nebulization 3 ml inhalation Q6H PRN (Reason: shortness of breath) multivitamin [Daily Multi-Vitamin] Tablet 1 tab PO DAILY [place] Saline 0.65 % aerosol,spray 1 spray intranasal BID PRN (Reason: dry nasal passages) guaifenesin [Mucus Relief ER] 1,200 MG tablet 1,200 mg PO BID PRN (Reason: cough) metoprolol tartrate 50 mg Tablet 50 mg PO BID Qty: 60 2RF furosemide 40 mg tablet 40 mg PO BID Qty: 60 2RF potassium chloride [Klor-Con M20] 20 mEq tablet,ER particles/crystals 20 meq PO BID Qty: 60 2RF Eliquis 5 mg Tablet 5 mg PO BID Qty: 60 2RF nystatin 100,000 unit/gram cream 1 applic topical BID Discontinued nitrofurantoin monohyd/m-cryst 100 mg capsule 1 cap PO BID Referrals / Follow Up: Mercy Purvis MD [Med Staff - Active Staff] - Within 1 Month Phuc Martines DO [Primary Care Provider] - Within 2 Weeks Irina Elam PA [Med Staff - Adv Practice Prof] - Within 2 Weeks Yonathan Gonzalez DO [Med Staff - Active Staff] - Within 1 Month (Respiratory failure, COPD on oxygen) Disposition Disposition (needs filled in before D/C Order can be placed): Home, Self Care 04/26/25931<Electronically signed by George Polanco MD>George Polanco MD CC: Dr. Virginia Henriquez MD; Dr. Phuc Martines DO ~ Signed [facility] Work Phone: [phone]) 141-833006-30-2025 Discharge summary [facility] Medical Records Department [address] [place] [address] Discharge Summary 04/26/25931 MR#: [id number] Acct: [id number] Name: LISA LUCERO Rep #:[id number] : 1955 69 From: George Willis PCP: Dr. Phuc Martines DO Status:AD M IN Location: [id number] Providers Date of Admission: 04/23/25 Date of Discharge: 04/26/25 Primary Care Physician: Dr. Phuc Martines DO Reason For Visit: PAFLUTTER W/RVR, ? ACUTE VIRAL SYNDROME Diagnosis Discharge Diagnosis (1) Atrial flutter with rapid ventricular response: Status: Acute Code(s): I48.92 - Unspecified atrial flutter Plan The patient is a 69 y/o F admitted with fever 102 Fahrenheit on Saturday, URI symptoms nasal congestion, shortness of breath/dyspnea on her baseline 3 to 6 L of oxygen because of COPD and chronic alcohol use. No recent cough. There is concerned of UTI therefore was started on Macrobid but later on urine culture came back negative. She was tachycardic heart rate about 129 bpm in PCP office and wassent for admission. Denies chest pain abdominal pain nausea and vomiting #1. Mild COPD exacerbation from suspected viral infection: Patient is being admitted in the PCU. Currently on 6 L of oxygen. Patient is being managed on scheduled bronchodilator, Pulmicort aerosol twice daily, Mucinex, incentive spirometry and Pep. 04/25: Air entry has improved compared to yesterday. Continue bronchodilator treatment. 04/26: Patient on baseline oxygen 4 to 5 L/min. Home O2 qualification test ordered. Patient is medically stable for discharge. #2. Paroxsymal atrial flutter w/ RVR due to acute on chronic HFpEF: EKG in ED w/ atrial flutter w/ RVR. Patient administered Cardizem bolus and eventually placed on a drip in ED. Was started on Cardizem drip. Continue Eliquis. Cardizem drip is being tapered off, started on Cardizem 60 mg Q6 hourly. Recent echo on 02/19/2025 with borderline LV systolic function with LVEF 45 to 50%, moderate global RV systolic dysfunction, mild biatrial dilatation, moderateMVI, mild TBI, RVSP 53 mmHg Chest x-ray shows cardiomegaly and mild fluid congestion. Furosemide 40 mg IV twice daily 04/25: Heart rate is better controlled and 100s. Cardizem 60 mg Q6 hourly changed to Cardizem CD 120mg Q12 hourly. Continue IV diuresis 04/26: Heart rate is controlled about 90s. Cardizem CD dose increased to 180 mg every 12 hourly and prescription for the same given. Discharged on metoprolol and Cardizem CD #3. UTI ruled out and possible Macrobid allergic: Patient was started on Macrobid for concern of UTI but she developed a rash therefore was discontinued. Urine culture also negative therefore UTI ruled out 04/26: Macrobid discontinued from the discharge med list. #4. EtOH Abuse, recently cutting back: Currently she drinks 2/day, total 14 drinks weekly and therefore advised to quit it. She was also told by her ladle handler Dr. Bryan Elena to be cautious will maintain on CIWA protocol, MVI, thiamine and folic acid. #5. Hypertension: Continue home regimen including Lasix, metoprolol, as needed hydralazine #6. Hyperlipidemia: Triglycerides 93, Cholesterol 138, LDL Cholesterol, Calc 81, VLDL Cholesterol 19, HDL Cholesterol 38 L, Cholesterol/HDL Ratio 3.62, TSH 1.970. Started on atorvastatin 20 mg daily. discharged on atorvastatin 40 mg daily, prescription given #7. Morbid Obesity: Weight loss and lifestyle changes encouraged. #8. History of VTE: Patient with history of DVT, PE, continue Eliquis home regimen. #9. She quit smoking about 10 years ago. Total more than 40 pack years of a smoker #10. ROXY: Patient reports that she only uses supplemental oxygen, no PAP therapy. Follows floorworker lasting Dr. Diana gonzalez #11. DVT prophylaxis: Will continue patient on Eliquis regimen. #12. CODE status: Patient ARACELI is her daughter and living will is currently inplace. Discussed CODE status at length including difference between FULL code, DNR-CCA and DNR-CC status. Following discussions about the differences in these status, requested Full Code status. Discharge medication reconciliation done. Discharge follow-up instructions completed. Discharge process discussed with the patient and all questions wereanswered to patient's satisfaction. Follow with PCP in 1 to 2 weeks Total time spent, exact 35 minutes on discharge meds reconciliation, examination, coordination of care with nurses and ancillary staff, review of imaging and blood test and discussion with the patient on follow-up instructions. Microbiology Past 72 Hours 04/24/25 01:36 Mucosa - Nasopharyngeal Respiratory Panel (PCR) - Final Laboratory Results 04/25/25 06:18: WBC 8.7, RBC 3.85 L, Hgb 11.9 L, Hct 39.3, MCV 102.1 H, MCH 30.9, MCHC 30.3 L, RDW Std Deviation 54.5 H, RDW Coeff of Karly 14.5, Plt Count 286, MPV 10.1, Immature Gran % (Auto) 0.300, Neut % (Auto) 85.7 H, Lymph % (Auto) 6.3 L, [place] % (Auto) 6.2, Eos % (Auto) 1.0, Baso % (Auto) 0.5, Absolute Neuts (auto) 7.5, Absolute Lymphs (auto) 0.55 L, Nucleated RBC % 0, Sodium 141, Potassium 4.3, Chloride 95 L, Carbon Dioxide 36.5 H, Anion Gap 9, BUN 17, Creatinine 0.67 L, Estim Creat Clear Calc 84.48, Est GFR (MDRD) Non-Af 96, BUN/Creatinine Ratio 25.0 H, Glucose 130 H, Calcium 9.3 04/24/25 05:42: Sodium 146 H, Potassium 4.6, Chloride 100, Carbon Dioxide 38.0 H, Anion Gap 8, BUN 13, Creatinine 0.63 L, Estim Creat Clear Calc 85.25, Est GFR (MDRD) Non-Af 97, BUN/Creatinine Ratio 20.9 H, Glucose 144 H, Calcium 9.4, TotalBilirubin 0.44, AST 21, ALT 30, Alkaline Phosphatase 112 H,Total Protein 6.6, Albumin 3.3 L, Globulin 3.3, Albumin/Globulin Ratio 1.0, Triglycerides 93, Cholesterol 138, LDL Cholesterol, Calc 81, VLDL Cholesterol 19, HDL Cholesterol 38 L, Cholesterol/HDL Ratio 3.62, TSH 1.970 Medications at Discharge Home Medications Oxygen, Home [Home Oxygen] 2 - 4 lpm QHS sob/copd 11/13/17 albuterol sulfate 90 mcg/actuation breath activated powder inhaler 2 inh inhalation Q6H PRN shortness of breath 02/19/25 fluticasone fur. 200 mcg-umeclid 62.5 mcg-vilant 25 mcg inhalat.powder (Trelegy Ellipta) 1 ea inhalation DAILY sob 02/19/25 guaifenesin 1,200 mg tablet, extended release 12 hr (Mucus Relief ER) 1,200 mg PO BID PRN cough 02/19/25 ipratropium 0.5 mg-albuterol 3 mg (2.5 mg base)/3 mL nebulization soln 3 ml inhalation Q6H PRN shortness of breath 02/19/25 multivitamin (Daily Multi-Vitamin tablet) 1 tab PO DAILY supplement 02/19/25 sodium chloride 0.65 % nasal spray aerosol ([place] Saline) 1 spray intranasal BID PRN dry nasal passages 02/19/25 apixaban 5 mg tablet (Eliquis) 5 mg PO BID blood thinner #60 tabs 02/23/25 furosemide 40 mg tablet 40 mg PO BID diuretic #60 tabs 02/23/25 metoprolol tartrate 50 mg tablet 50 mg PO BID blood pressure #60 tabs 02/23/25 potassium chloride 20 mEq tablet,extended release(part/cryst) (Klor-Con M) 20 meq PO BID supplement#60 tabs 02/23/25 ascorbic acid (vitamin C) 500 mg capsule 500 mg PO DAILY PRN supplement 03/30/25 cinnamon bark 500 mg capsule (Cinnamon) 500 mg PO QDAY supplement 03/30/25 mecobalamin (vitamin B12) 1,000 mcg chewable tablet 1,000 mcg PO QDAY [id number]/25 nystatin 100,000 unit/gram topical cream 1 applic topical BID skin rash 04/23/25 atorvastatin 40 mg tablet 40 mg PO QHS 30 days #30 tabs 04/26/25 diltiazem HCl 180 mg capsule,extended release 24 hr 180 mg PO Q12 30 days #60 caps 04/26/25 Hospital Course Summary of Care Provided Hospital Course: Microbiology Past 72 Hours 04/24/25 01:36 Mucosa - Nasopharyngeal Respiratory Panel (PCR) - Final Laboratory Results 04/26/25 05:30: WBC 9.2, RBC 3.77 L, Hgb 11.6 L, Hct 38.8, MCV 102.9 H, MCH 30.8, MCHC 29.9 L, RDW Std Deviation 54.2 H, RDW Coeff of Karly 14.3, Plt Count 266, MPV 11.1, Immature Gran % (Auto) 0.700, Neut % (Auto) 87.0 H, Lymph % (Auto) 5.2 L, [place] % (Auto) 5.9, Eos % (Auto) 0.9, Baso % (Auto) 0.3, Absolute Neuts (auto) 8.0 H, Absolute Lymphs (auto) 0.48 L, Nucleated RBC % 0, Sodium 142, Potassium4.6, Chloride 96 L, Carbon Dioxide 37.1 H, Anion Gap 8, BUN 23 H,Creatinine 0.72, Estim Creat ClearCalc 85.43, Est GFR (MDRD) Non-Af 92, BUN/Creatinine Ratio 32.1 H, Glucose 125 H, Calcium 9.4 Physical Exam Narrative Seen and examined. Shortness of breath is improved and patient is on baseline. Heart rhythm A- fib,heart rate is controlled currently on 5 L of oxygen Patient was admitted for SOB and, rapid heart rate, new onset atrial flutter, COPD on 3 to 6 L of oxygen at baseline and chronic alcohol use. Scheduled with ladle handler for possible ablation. Patient was also having fever and PCP concern for UTI Physical exam General: Alert, Oriented x3, Cooperative HEENT: Atraumatic, PERRLA, EOMI, Normocephalic. Oral: No Gingival or Mucosal Lesions/ Ulcerations Neck: Supple, No JVD, Negative Carotid Bruits Chest wall/Lungs: Air entry improved in all lung yu. Very fine bilateral expiratory rhonchi Cardiovascular: Irregular rate and rhythm, Normal S1,S2, systolic murmur Abdomen: Bowel Sounds Present, Soft, Non Tender, Non-Distended : No dysuria. No renal angle tenderness. No suprapubic tenderness. Extremities: Mild 1+ pitting edema, Capillary Refill Less than 3 Seconds Skin: No rashes, No breakdown Musculoskeletal: No Tenderness to Palpation of Joints or Extremities. ROM restricted Neurological: Cranial nerves II-XII grossly intact, DTR 2+/4. No acute focal neurological deficit. Psych/Mental Status: Normal Affect, Appropriate. Weight / BMI Weight Weight: 256 lb 2.834 oz Body Mass Index (BMI) 43.9 ABG / Lab / Microbiology Data 04/26/25 05:30 04/26/25 05:30 Laboratory: Laboratory Results - last 24 hr 04/26/25 05:30: WBC 9.2, RBC 3.77 L, Hgb 11.6 L, Hct 38.8, MCV 102.9 H, MCH 30.8, MCHC 29.9 L, RDW Std Deviation 54.2 H, RDW Coeff of Karly 14.3, Plt Count 266, MPV 11.1, Immature Gran % (Auto) 0.700, Neut % (Auto) 87.0 H, Lymph % (Auto) 5.2 L, [place] % (Auto) 5.9, Eos % (Auto) 0.9, Baso % (Auto) 0.3, Absolute Neuts (auto) 8.0 H, Absolute Lymphs (auto) 0.48 L, Nucleated RBC % 0, Sodium 142, Potassium4.6, Chloride 96 L, Carbon Dioxide 37.1 H, Anion Gap 8, BUN 23 H,Creatinine 0.72, Estim Creat ClearCalc 85.43, Est GFR (MDRD) Non-Af 92, BUN/Creatinine Ratio 32.1 H, Glucose 125 H, Calcium 9.4 Microbiology: Microbiology 04/24/25 01:36 Mucosa - Nasopharyngeal Respiratory Panel (PCR) - Final D/C Instructions Discharge Diet: Low fat / Low cholesterol and 2000 mg Sodium Diet Weight Bearing Status: Weight bearing as tolerated Call your doctor if you observe: Fever of 101 or Higher, Coldness, Increased Pain, Numbness or Tingling, Change in Color, Inability to urinate, Inability to have a bowel movement, Shortness of breath, Dizziness, Fainting spells, Swellingin the ankles, Chest pain, Prolonged hiccupping, Increased palpitations (irregular heartbeat) and Calf discomfort DC O2, CPAP, BIPAP Needs Home O2 Discharge instructions: Yes Type of respiratory needs?: Oxygen Oxygen frequency: ContinuousContinuous oxygen liters per minute: 5 DC home with Oxygen: Yes Home O2 MD Review: I have reviewed the oxygen testing, and the patient qualifies for home oxygen equipment and portability. The patient is mobile in the home and the community. When: IN 2 WEEKS Meaningful Use Info Meaningful Use Meaningful Use Diagnoses (Choose all that apply): CHF CHF NINA/ARB ordered at discharge?: No Reason NINA/ARB not ordered?: Hypotension and Normal EF Documented LVEF (%): 50 Ischemic Stroke Statin Dosing Therapy Reference: STATIN [...] Simvastatin 80mg Discharge Plan Admission Admit Date/Time: 04/23/25 21:51 Primary Reason for Your Visit: A-fib RVR/CHF exacerbation Attending Provider: George Polanco Primary Care Provider: Phuc Martines Consulting Providers: Virginia Henriquez Discharge Orders/Prescriptions Prescriptions: New atorvastatin 40 mg Tablet 40 mg PO QHS 30 Days Qty: 30 2RF diltiazem HCl 180 mg Capsule,Extended Release 24hr 180 mg PO Q12 30 Days Qty: 60 1RF Continued cinnamon bark [Cinnamon] 500 mg capsule 500 mg PO QDAY mecobalamin (vitamin B12) 1,000 mcg tablet,chewable 1,000 mcg PO QDAY Oxygen, Home [Home Oxygen] 2 - 4 lpm NASAL QHS ascorbic acid (vitamin C) 500 mg capsule 500 mg PO DAILY PRN (Reason: supplement) Patient Comments: only takes in winter albuterol sulfate 90 mcg/actuation aerosol powdr breath activated 2 inh inhalation Q6H PRN (Reason: shortness of breath) Trelegy Ellipta 200-62.5-25 mcg blister with device 1 ea inhalation DAILY ipratropium-albuterol 0.5 mg-3 mg(2.5 mg base)/3 mL solution for nebulization 3 ml inhalation Q6H PRN (Reason: shortness of breath) multivitamin [Daily Multi-Vitamin] Tablet 1 tab PO DAILY [place] Saline 0.65 % aerosol,spray 1 spray intranasal BID PRN (Reason: dry nasal passages) guaifenesin [Mucus Relief ER] 1,200 MG tablet 1,200 mg PO BID PRN (Reason: cough) metoprolol tartrate 50 mg Tablet 50 mg PO BID Qty: 60 2RF furosemide 40 mg tablet 40 mg PO BID Qty: 60 2RF potassium chloride [Klor-Con M20] 20 mEq tablet,ER particles/crystals 20 meq PO BID Qty: 60 2RF Eliquis 5 mg Tablet 5 mg PO BID Qty: 60 2RF nystatin 100,000 unit/gram cream 1 applic topical BID Discontinued nitrofurantoin monohyd/m-cryst 100 mg capsule 1 cap PO BID Referrals / Follow Up: Mercy Purvis MD [Med Staff - Active Staff] - Within 1 Month Yonathan Gonzalez DO [Med Staff - Active Staff] - Within 1 Month (Respiratory failure, COPD on oxygen) Phuc Martines DO [Primary Care Provider] - Within 2 Weeks Irina Elam PA [Med Staff - Adv Practice Prof] - Within 2 Weeks Disposition Disposition (needs filled in before D/C Order can be placed): Home, Self Care Charges/Coding Visit Charges Inpatient E&M: 25586 Disch Hosp >30min 04/26/25 0938 Cosigner Signature (if applicable): CC: Dr. Phcu Martines DO; Dr. George Polanco MD~ Signed [facility]06-30-2025 Discharge summary [facility] Medical Records Department [address] [place] [address] Instructions for Home/Discharge Instructions 04/26/25918 MR#: [id number] Acct: [id number] Name: LISA LUCERO Rep #:[id number] : 1955 69 From: George Willis PCP: Dr. Phuc Martines DO Status:AD M IN Discharge Instructions Diet Discharge Diet: Low fat / Low cholesterol and 2000 mg Sodium Diet DC O2, CPAP, BIPAP needs Home O2 Discharge instructions: Yes Type of respiratory needs?: Oxygen Oxygen frequency: ContinuousContinuous oxygen liters per minute: 5 Dressing / Incision Discharge Activity: Return to Normal Activity Weight Bearing Status: Weight bearing as tolerated Dressing / Incision Call your doctor if you observe: Fever of 101 or Higher, Coldness, Increased Pain, Numbness or Tingling, Change in Color, Inability to urinate, Inability to have a bowel movement, Shortness of breath, Dizziness, Fainting spells, Swellingin the ankles, Chest pain, Prolonged hiccupping, Increased palpitations (irregular heartbeat) and Calf discomfort Follow Up Care When: IN 2 WEEKS Test Results: Test results from this visit will be discussed in further detail at your follow- up appointment, if applicable. Discharge Plan Admission Admit Date/Time: 04/23/25 21:51 Primary Reason for Your Visit: A-fib RVR/CHF exacerbation Attending Provider: George Polanco Primary Care Provider: Phuc Martines Consulting Providers: Virginia Henriquez Discharge Orders/Prescriptions Prescriptions: New atorvastatin 40 mg Tablet 40 mg PO QHS 30 Days Qty: 30 2RF diltiazem HCl 180 mg Capsule,Extended Release 24hr 180 mg PO Q12 30 Days Qty: 60 1RF Continued cinnamon bark [Cinnamon] 500 mg capsule 500 mg PO QDAY mecobalamin (vitamin B12) 1,000 mcg tablet,chewable 1,000 mcg PO QDAY Oxygen, Home [Home Oxygen] 2 - 4 lpm NASAL QHS ascorbic acid (vitamin C) 500 mg capsule 500 mg PO DAILY PRN (Reason: supplement) Patient Comments: only takes in winter albuterol sulfate 90 mcg/actuation aerosol powdr breath activated 2 inh inhalation Q6H PRN (Reason: shortness of breath) Trelegy Ellipta 200-62.5-25 mcg blister with device 1 ea inhalation DAILY ipratropium-albuterol 0.5 mg-3 mg(2.5 mg base)/3 mL solution for nebulization 3 ml inhalation Q6H PRN (Reason: shortness of breath) multivitamin [Daily Multi-Vitamin] Tablet 1 tab PO DAILY [place] Saline 0.65 % aerosol,spray 1 spray intranasal BID PRN (Reason: dry nasal passages) guaifenesin [Mucus Relief ER] 1,200 MG tablet 1,200 mg PO BID PRN (Reason: cough) metoprolol tartrate 50 mg Tablet 50 mg PO BID Qty: 60 2RF furosemide 40 mg tablet 40 mg PO BID Qty: 60 2RF potassium chloride [Klor-Con M20] 20 mEq tablet,ER particles/crystals 20 meq PO BID Qty: 60 2RF Eliquis 5 mg Tablet 5 mg PO BID Qty: 60 2RF nystatin 100,000 unit/gram cream 1 applic topical BID Discontinued nitrofurantoin monohyd/m-cryst 100 mg capsule 1 cap PO BID Referrals / Follow Up: Mercy Purvis MD [Med Staff - Active Staff] - Within 1 Month Phuc Martines DO [Primary Care Provider] - Within 2 Weeks Irina Elam PA [Med Staff - Adv Practice Prof] - Within 2 Weeks Yonathan Gonzalez DO [Med Staff - Active Staff] - Within 1 Month (Respiratory failure, COPD on oxygen) Disposition Disposition (needs filled in before D/C Order can be placed): Home, Self Care 04/26/25 0932George Polanco MD CC: Dr. Virginia Henriquez MD; Dr. Phuc Martines DO ~ Signed [facility]06-30-2025 [facility] Medical Records Department [address] [place] [address] Discharge Summary 04/26/25931 MR#: [id number] Acct: [id number] Name: LISA LUCERO Rep #: [id number] : 1955 69 From: George Polanco MD PCP: Dr. Phuc Martines DO Status:ADM IN Location: [place] [address] Providers Date of Admission: 04/23/25 Date of Discharge: 04/26/25 Primary Care Physician: Dr. Phuc Martines DO Reason For Visit: PAFLUTTER W/RVR, ? ACUTE VIRAL SYNDROME Diagnosis Discharge Diagnosis (1) Atrial flutter with rapid ventricular response: Status: Acute Code(s): I48.92 - Unspecified atrial flutter Plan The patient is a 69 y/o F admitted with fever 102 Fahrenheit on Saturday, URI symptoms nasal congestion, shortness of breath/dyspnea on her baseline 3 to 6 L of oxygen because of COPD and chronic alcohol use. No recent cough. There is concerned of UTI therefore was started on Macrobid but later on urine culture came back negative. She was tachycardic heart rate about 129 bpm in PCP office and was sent for admission. Denies chest pain abdominal pain nausea and vomiting #1. Mild COPD exacerbation from suspected viral infection: Patient is being admitted in the PCU. Currently on 6 L of oxygen. Patient is being managed on scheduled bronchodilator, Pulmicort aerosol twice daily, Mucinex, incentive spirometry and Pep. 04/25: Air entry has improved compared to yesterday. Continue bronchodilator treatment. 04/26: Patient on baseline oxygen 4 to 5 L/min. Home O2 qualification test ordered. Patient is medically stable for discharge. #2. Paroxsymal atrial flutter w/ RVR due to acute on chronic HFpEF: EKG in ED w/ atrial flutter w/ RVR. Patient administered Cardizem bolus and eventually placed on a drip in ED. Was started on Cardizem drip. Continue Eliquis. Cardizem drip is being tapered off, started on Cardizem 60 mg Q6 hourly. Recent echo on 02/19/2025 with borderline LV systolic function with LVEF 45 to 50%, moderate global RV systolic dysfunction, mild biatrial dilatation, moderate MVI, mild TBI, RVSP 53 mmHg Chest x-ray shows cardiomegaly and mild fluid congestion. Furosemide 40 mg IV twice daily 04/25: Heart rate is better controlled and 100s. Cardizem 60 mg Q6 hourly changed to Cardizem CD 120 mg Q12 hourly. Continue IV diuresis 04/26: Heart rate is controlled about 90s. Cardizem CD dose increased to 180 mg every 12 hourly and prescription for the same given. Discharged on metoprolol and Cardizem CD #3. UTI ruled out and possible Macrobid allergic: Patient was started on Macrobid for concern of UTI but she developed a rash therefore was discontinued. Urine culture also negative therefore UTI ruled out 04/26: Macrobid discontinued from the discharge med list. #4. EtOH Abuse, recently cutting back: Currently she drinks 2/day, total 14 drinks weekly and therefore advised to quit it. She was also told by her ladle handler Dr. Bryan Elena to be cautious will maintain on CIWA protocol, MVI, thiamine and folic acid. #5. Hypertension: Continue home regimen including Lasix, metoprolol, as needed hydralazine #6. Hyperlipidemia: Triglycerides 93, Cholesterol 138, LDL Cholesterol, Calc 81, VLDL Cholesterol 19, HDL Cholesterol 38 L, Cholesterol/HDL Ratio 3.62, TSH 1.970. Started on atorvastatin 20 mg daily. discharged on atorvastatin 40 mg daily, prescription given #7. Morbid Obesity: Weight loss and lifestyle changes encouraged. #8. History of VTE: Patient with history of DVT, PE, continue Eliquis home regimen. #9. She quit smoking about 10 years ago. Total more than 40 pack years of a smoker #10. ROXY: Patient reports that she only uses supplemental oxygen, no PAP therapy. Follows floorworker lasting Dr. Diana gonzalez #11. DVT prophylaxis: Will continue patient on Eliquis regimen. #12. CODE status: Patient ARACELI is her daughter and living will is currently in place. Discussed CODE status at length including difference between FULL code, DNR-CCA and DNR-CC status. Following discussions about the differences in these status, requested Full Code status. Discharge medication reconciliation done. Discharge follow-up instructions completed. Discharge process discussed with the patient and all questions were answered to patient's satisfaction. Follow with PCP in 1 to 2 weeks Total time spent, exact 35 minutes on discharge meds reconciliation, examination, coordination of care with nurses and ancillary staff, review of imaging and blood test and discussion with the patient on follow-up instructions. Microbiology Past 72 Hours 04/24/25 01:36 Mucosa - Nasopharyngeal Respiratory Panel (PCR) - Final Laboratory Results 04/25/25 06:18: WBC 8.7, RBC 3.85 L, Hgb 11.9 L, Hct 39.3, MCV 102.1 H, MCH 30.9, MCHC 30.3 L, RDW Std Deviation 54.5 H, RDW Coeff of Karly 14.5, Plt Count 286, MPV 10.1, Immature Gran % (Auto) 0 (more content not included)...[facility] 04-25-2025 Progress note Author George Polanco [facility] Note Date/Time April 25, 2025 12:[address] [facility] Medical Records Department [address] [place] [address] Progress Note - Hospitalist 04/25/25 0903 MR#: [id number] Acct: [id number] Name: ILSA LUCERO Rep #:[id number] : 1955 69 From: Geogre Willis PCP: Dr. Phuc Martines, DO Status:AD M IN Location: [place] [address] Reason for Visit Reason for Visit: Diagnoses Unspecified atrial flutter (04/23/25) Objective Data Objective Data Vital Signs: Vital Signs Temp Pulse Resp BP Pulse Ox O2 Del Method O2 Flow Rate 98.5 F 86 18 129/66 H 91 Nasal Cannula 5 04/25/25 05:38 04/25/25 06:38 04/25/25 06:38 04/25/25 05:38 04/25/25 06:38 04/25/25 07:55 04/25/25 07:55 Oxygen Flow Rate (L/min) 5 Oxygen Delivery Method Nasal Cannula Weight: 251 lb 5.231 oz Body Mass Index (BMI) 43.1 Intake & Output: Intake and Output for Last 24 Hours 04/23/25 04/24/25 04/25/25 23:59 23:59 23:59 Intake Total 11.08 / 13.58 853.16 / 853.16 75 / 75 Output Total 700 / 700 Balance 11.08 / -386.42 153.16 / 153.16 75 / 75 Lab / Micro Data 04/25/25 06:18 04/25/25 06:18 Labs: Laboratory Results - last 24 hr 04/25/25 06:18: WBC 8.7, RBC 3.85 L, Hgb 11.9 L, Hct 39.3, MCV 102.1 H, MCH 30.9, MCHC 30.3 L, RDW Std Deviation 54.5 H, RDW Coeff of Karly 14.5, Plt Count 286, MPV 10.1, Immature Gran % (Auto) 0.300, Neut % (Auto) 85.7 H, Lymph % (Auto) 6.3 L, [place] % (Auto) 6.2, Eos % (Auto) 1.0, Baso % (Auto) 0.5, Absolute Neuts (auto) 7.5, Absolute Lymphs (auto) 0.55 L, Nucleated RBC % 0, Sodium 141, Potassium 4.3, Chloride 95 L, Carbon Dioxide 36.5 H, Anion Gap 9, BUN 17, Creatinine 0.67 L, Estim Creat Clear Calc 84.48, Est GFR (MDRD) Non-Af 96, BUN/Creatinine Ratio 25.0 H, Glucose 130 H, Calcium 9.3 Micro: Microbiology 04/24/25 01:36 Mucosa - Nasopharyngeal Respiratory Panel (PCR) - Final Physical Exam Narrative Seen and examined. Shortness of breath is better. Heart rate also controlled, A-fib in the low 100s. Currently on 5 L of oxygen Patient was admitted for SOB and, rapid heart rate, new onset atrial flutter, COPD on 3 to 6 L of oxygen at baseline and chronic alcohol use. Scheduled with ladle handler for possible ablation. Patient was also having fever and PCP concern for UTI Physical exam General: Alert, Oriented x3, Cooperative HEENT: Atraumatic, PERRLA, EOMI, Normocephalic. Oral: No Gingival or Mucosal Lesions/ Ulcerations Neck: Supple, No JVD, Negative Carotid Bruits Chest wall/Lungs: Air entry diminished in all lung yu but improved comparedto yesterday. Bilateral expiratory rhonchi Cardiovascular: Irregular rate and rhythm, Normal S1,S2, systolic murmur Abdomen: Bowel Sounds Present, Soft, Non Tender, Non-Distended : No dysuria. No renal angle tenderness. No suprapubic tenderness. Extremities: Mild 1+ pitting edema, Capillary Refill Less than 3 Seconds Skin: No rashes, No breakdown Musculoskeletal: No Tenderness to Palpation of Joints or Extremities. ROM restricted Neurological: Cranial nerves II-XII grossly intact, DTR 2+/4. No acute focal neurological deficit. Psych/Mental Status: Normal Affect, Appropriate. Assessment & Plan Assessment/Plan (1) Atrial flutter with rapid ventricular response: PLAN: Plan The patient is a 69 y/o F admitted with fever 102 Fahrenheit on Saturday, URI symptoms nasal congestion, shortness of breath/dyspnea on her baseline 3 to 6 L of oxygen because of COPD and chronic alcohol use. No recent cough. There is concerned of UTI therefore was started on Macrobid but later on urine culture came back negative. She was tachycardic heart rate about 129 bpm in PCP office and was sent for admission. Denies chest pain abdominal pain nausea and vomiting #1. Mild COPD exacerbation from suspected viral infection: Patient is being admitted in the PCU. Currently on 6 L of oxygen. Patient is being managed on scheduled bronchodilator, Pulmicort aerosol twice daily, Mucinex, incentive spirometry and Pep. 04/25: Air entry has improved compared to yesterday. Continue bronchodilator treatment. #2. Paroxsymal atrial flutter w/ RVR due to acute on chronic HFpEF: EKG in ED w/ atrial flutter w/ RVR. Patient administered Cardizem bolus and eventually placed on a drip in ED. Was started on Cardizem drip. Continue Eliquis. Cardizem drip is being tapered off, started on Cardizem 60 mg Q6 hourly. Recent echo on 02/19/2025 with borderline LV systolic function with LVEF 45 to 50%, moderate global RV systolic dysfunction, mild biatrial dilatation, moderateMVI, mild TBI, RVSP 53 mmHg Chest x-ray shows cardiomegaly and mild fluid congestion. Furosemide 40 mg IV twice daily 04/25: Heart rate is better controlled and 100s. Cardizem 60 mg Q6 hourly changed to Cardizem CD 120 mg Q12 hourly. Continue IV diuresis #3. UTI ruled out and possible Macrobid allergic: Patient was started on Macrobid for concern of UTI but she developed a rash therefore was discontinued. Urine culture also negative therefore UTI ruled out #4. EtOH Abuse, recently cutting back: Currently she drinks 2/day, total 14 drinks weekly and therefore advised to quit it. She was also told by her ladle handler Dr. Bryan Elena to be cautious will maintain on CIWA protocol, MVI, thiamine and folic acid. #5. Hypertension: Continue home regimen including Lasix, metoprolol, as needed hydralazine #6. Hyperlipidemia: Triglycerides 93, Cholesterol 138, LDL Cholesterol, Calc 81, VLDL Cholesterol 19, HDL Cholesterol 38 L, Cholesterol/HDL Ratio 3.62, TSH 1.970. Started on atorvastatin 20 mg daily. #7. Morbid Obesity: Weight loss and lifestyle changes encouraged. #8. History of VTE: Patient with history of DVT, PE, continue Eliquis home regimen. #9. She quit smoking about 10 years ago. Total more than 40 pack years of a smoker #10. ROXY: Patient reports that she only uses supplemental oxygen, no PAP therapy. Follows floorworker lasting Dr. Diana gonzalez #11. DVT prophylaxis: Will continue patient on Eliquis regimen. #12. CODE status: Patient ARACELI is her daughter and living will is currently inplace. Discussed CODE status at length including difference between FULL code, DNR-CCA and DNR-CC status. Following discussions about the differences in these status, requested Full Code status. Microbiology Past 72 Hours 04/24/25 01:36 Mucosa - Nasopharyngeal Respiratory Panel (PCR) - Final Laboratory Results 04/25/25 06:18: WBC 8.7, RBC 3.85 L, Hgb 11.9 L, Hct 39.3, MCV 102.1 H, MCH 30.9, MCHC 30.3 L, RDW Std Deviation 54.5 H, RDW Coeff of Karly 14.5, Plt Count 286, MPV 10.1, Immature Gran % (Auto) 0.300, Neut % (Auto) 85.7 H, Lymph % (Auto) 6.3 L, [place] % (Auto) 6.2, Eos % (Auto) 1.0, Baso % (Auto) 0.5, Absolute Neuts (auto) 7.5, Absolute Lymphs (auto) 0.55 L, Nucleated RBC % 0, Sodium 141, Potassium 4.3, Chloride 95 L, Carbon Dioxide 36.5 H, Anion Gap 9, BUN 17, Creatinine 0.67 L, Estim Creat Clear Calc 84.48, Est GFR (MDRD) Non-Af 96, BUN/Creatinine Ratio 25.0 H, Glucose 130 H, Calcium 9.3 04/24/25 05:42: Sodium 146 H, Potassium 4.6, Chloride 100, Carbon Dioxide 38.0 H, Anion Gap 8, BUN 13, Creatinine 0.63 L, Estim Creat Clear Calc 85.25, Est GFR (MDRD) Non-Af 97, BUN/Creatinine Ratio 20.9 H, Glucose 144 H, Calcium 9.4, TotalBilirubin 0.44, AST 21, ALT 30, Alkaline Phosphatase 112 H, Total Protein 6.6, Albumin 3.3 L, Globulin 3.3, Albumin/Globulin Ratio 1.0, Triglycerides 93, Cholesterol 138, LDL Cholesterol, Calc 81, VLDL Cholesterol 19, HDL Cholesterol 38 L, Cholesterol/HDL Ratio 3.62, TSH 1.970 Charges/Coding Visit Charges Inpatient E&M: 30551 Subs Hosp L2 04/25/25 1203 <Electronically signed by George Polanco MD> Cosigner Signature (if applicable): CC: ~ Signed [facility] Work Phone: [phone] Progress note [facility] Medical Records Department [address] [place] [address] Progress Note - Hospitalist 04/25/25 09 MR#: [id number] Acct: [id number] Name: LISA LUCERO Rep #:[id number] : 1955 69 From: George Willis PCP: Dr. Phuc Martines, DO Status:AD M IN Location: [place] [address] Reason for Visit Reason for Visit: Diagnoses Unspecified atrial flutter (04/23/25) Objective Data Objective Data Vital Signs: Vital Signs Temp Pulse Resp BP Pulse Ox O2 Del Method O2 Flow Rate 98.5 F 86 18 129/66 H 91 Nasal Cannula 5 04/25/25 05:38 04/25/25 06:38 04/25/25 06:38 04/25/25 05:38 04/25/25 06:38 04/25/25 07:55 04/25/25 07:55 Oxygen Flow Rate (L/min) 5 Oxygen Delivery Method Nasal Cannula Weight: 251 lb 5.231 oz Body Mass Index (BMI) 43.1 Intake & Output: Intake and Output for Last 24 Hours 04/23/25 04/24/25 04/25/25 23:59 23:59 23:59 Intake Total 11.08 / 13.58 853.16 / 853.16 75 / Output Total 700 / 700 Balance 11.08 / -386.42 153.16 / 153.16 75 / 75 Lab / Micro Data 04/25/25 06:18 04/25/25 06:18 Labs: Laboratory Results - last 24 hr 04/25/25 06:18: WBC 8.7, RBC 3.85 L, Hgb 11.9 L, Hct 39.3, MCV 102.1 H, MCH 30.9, MCHC 30.3 L, RDW Std Deviation 54.5 H, RDW Coeff of Karly 14.5, Plt Count 286, MPV 10.1, Immature Gran % (Auto) 0.300, Neut % (Auto) 85.7 H, Lymph % (Auto) 6.3 L, [place] % (Auto) 6.2, Eos % (Auto) 1.0, Baso % (Auto) 0.5, Absolute Neuts (auto) 7.5, Absolute Lymphs (auto) 0.55 L, Nucleated RBC % 0, Sodium 141, Potassium 4.3, Chloride 95 L, Carbon Dioxide 36.5 H, Anion Gap 9, BUN 17, Creatinine 0.67 L, Estim Creat Clear Calc 84.48, Est GFR (MDRD) Non-Af 96, BUN/Creatinine Ratio 25.0 H, Glucose 130 H, Calcium 9.3 Micro: Microbiology 04/24/25 01:36 Mucosa - Nasopharyngeal Respiratory Panel (PCR) - Final Physical Exam Narrative Seen and examined. Shortness of breath is better. Heart rate also controlled, A-fib in the low 100s. Currently on 5 L of oxygen Patient was admitted for SOB and, rapid heart rate, new onset atrial flutter, COPD on 3 to 6 L of oxygen at baseline and chronic alcohol use. Scheduled with ladle handler for possible ablation. Patient was also having fever and PCP concern for UTI Physical exam General: Alert, Oriented x3, Cooperative HEENT: Atraumatic, PERRLA, EOMI, Normocephalic. Oral: No Gingival or Mucosal Lesions/ Ulcerations Neck: Supple, No JVD, Negative Carotid Bruits Chest wall/Lungs: Air entry diminished in all lung yu but improved comparedto yesterday. Bilateral expiratory rhonchi Cardiovascular: Irregular rate and rhythm, Normal S1,S2, systolic murmur Abdomen: Bowel Sounds Present, Soft, Non Tender, Non-Distended : No dysuria. No renal angle tenderness. No suprapubic tenderness. Extremities: Mild 1+ pitting edema, Capillary Refill Less than 3 Seconds Skin: No rashes, No breakdown Musculoskeletal: No Tenderness to Palpation of Joints or Extremities. ROM restricted Neurological: Cranial nerves II-XII grossly intact, DTR 2+/4. No acute focal neurological deficit. Psych/Mental Status: Normal Affect, Appropriate. Assessment & Plan Assessment/Plan (1) Atrial flutter with rapid ventricular response: PLAN: Plan The patient is a 69 y/o F admitted with fever 102 Fahrenheit on Saturday, URI symptoms nasal congestion, shortness of breath/dyspnea on her baseline 3 to 6 L of oxygen because of COPD and chronic alcohol use. No recent cough. There is concerned of UTI therefore was started on Macrobid but later on urine culture came back negative. She was tachycardic heart rate about 129 bpm in PCP office and wassent for admission. Denies chest pain abdominal pain nausea and vomiting #1. Mild COPD exacerbation from suspected viral infection: Patient is being admitted in the PCU. Currently on 6 L of oxygen. Patient is being managed on scheduled bronchodilator, Pulmicort aerosol twice daily, Mucinex, incentive spirometry and Pep. 04/25: Air entry has improved compared to yesterday. Continue bronchodilator treatment. #2. Paroxsymal atrial flutter w/ RVR due to acute on chronic HFpEF: EKG in ED w/ atrial flutter w/ RVR. Patient administered Cardizem bolus and eventually placed on a drip in ED. Was started on Cardizem drip. Continue Eliquis. Cardizem drip is being tapered off, started on Cardizem 60 mg Q6 hourly. Recent echo on 02/19/2025 with borderline LV systolic function with LVEF 45 to 50%, moderate global RV systolic dysfunction, mild biatrial dilatation, moderateMVI, mild TBI, RVSP 53 mmHg Chest x-ray shows cardiomegaly and mild fluid congestion. Furosemide 40 mg IV twice daily 04/25: Heart rate is better controlled and 100s. Cardizem 60 mg Q6 hourly changed to Cardizem CD 120mg Q12 hourly. Continue IV diuresis #3. UTI ruled out and possible Macrobid allergic: Patient was started on Macrobid for concern of UTI but she developed a rash therefore was discontinued. Urine culture also negative therefore UTI ruled out #4. EtOH Abuse, recently cutting back: Currently she drinks 2/day, total 14 drinks weekly and therefore advised to quit it. She was also told by her ladle handler Dr. Bryan Elena to be cautious will maintain on CIWA protocol, MVI, thiamine and folic acid. #5. Hypertension: Continue home regimen including Lasix, metoprolol, as needed hydralazine #6. Hyperlipidemia: Triglycerides 93, Cholesterol 138, LDL Cholesterol, Calc 81, VLDL Cholesterol 19, HDL Cholesterol 38 L, Cholesterol/HDL Ratio 3.62, TSH 1.970. Started on atorvastatin 20 mg daily. #7. Morbid Obesity: Weight loss and lifestyle changes encouraged. #8. History of VTE: Patient with history of DVT, PE, continue Eliquis home regimen. #9. She quit smoking about 10 years ago. Total more than 40 pack years of a smoker #10. ROXY: Patient reports that she only uses supplemental oxygen, no PAP therapy. Follows floorworker lasting Dr. Diana gonzalez #11. DVT prophylaxis: Will continue patient on Eliquis regimen. #12. CODE status: Patient ARACELI is her daughter and living will is currently inplace. Discussed CODE status at length including difference between FULL code, DNR-CCA and DNR-CC status. Following discussions about the differences in these status, requested Full Code status. Microbiology Past 72 Hours 04/24/25 01:36 Mucosa - Nasopharyngeal Respiratory Panel (PCR) - Final Laboratory Results 04/25/25 06:18: WBC 8.7, RBC 3.85 L, Hgb 11.9 L, Hct 39.3, MCV 102.1 H, MCH 30.9, MCHC 30.3 L, RDW Std Deviation 54.5 H, RDW Coeff of Karly 14.5, Plt Count 286, MPV 10.1, Immature Gran % (Auto) 0.300, Neut % (Auto) 85.7 H, Lymph % (Auto) 6.3 L, [place] % (Auto) 6.2, Eos % (Auto) 1.0, Baso % (Auto) 0.5, Absolute Neuts (auto) 7.5, Absolute Lymphs (auto) 0.55 L, Nucleated RBC % 0, Sodium 141, Potassium 4.3, Chloride 95 L, Carbon Dioxide 36.5 H, Anion Gap 9, BUN 17, Creatinine 0.67 L, Estim Creat Clear Calc 84.48, Est GFR (MDRD) Non-Af 96, BUN/Creatinine Ratio 25.0 H, Glucose 130 H, Calcium 9.3 04/24/25 05:42: Sodium 146 H, Potassium 4.6, Chloride 100, Carbon Dioxide 38.0 H, Anion Gap 8, BUN 13, Creatinine 0.63 L, Estim Creat Clear Calc 85.25, Est GFR (MDRD) Non-Af 97, BUN/Creatinine Ratio 20.9 H, Glucose 144 H, Calcium 9.4, TotalBilirubin 0.44, AST 21, ALT 30, Alkaline Phosphatase 112 H,Total Protein 6.6, Albumin 3.3 L, Globulin 3.3, Albumin/Globulin Ratio 1.0, Triglycerides 93, Cholesterol 138, LDL Cholesterol, Calc 81, VLDL Cholesterol 19, HDL Cholesterol 38 L, Cholesterol/HDL Ratio 3.62, TSH 1.970 Charges/Coding Visit Charges Inpatient E&M: 29735 Subs Hosp L2 04/25/25 1203 Cosigner Signature (if applicable): CC: ~ Signed [facility]06-28-2025 Progress note Author George Polanco [facility] Note Date/Time April 24, 2025 1:22 pm [facility] Medical Records Department [address] [place] [address] Progress Note - Hospitalist 04/24/25 0810 MR#: [id number] Acct: [id number] Name: LISA LUCERO Rep #:[id number] : 1955 69 From: George Willis PCP: Dr. Phuc Martines, DO Status:AD M IN Location: [address] 1 Reason for Visit Reason for Visit: Diagnoses Unspecified atrial flutter (04/23/25) Objective Data Objective Data Vital Signs: Vital Signs Temp Pulse Resp BP Pulse Ox O2 Del Method O2 Flow Rate 99.0 F 99 25 H 124/89 H 89 Nasal Cannula 6 04/24/25 03:00 04/24/25 07:42 04/24/25 07:00 04/24/25 07:42 04/24/25 07:00 04/24/25 07:00 04/24/25 07:00 Oxygen Flow Rate (L/min) 6 Oxygen Delivery Method Nasal Cannula Weight: 255 lb 4.725 oz Body Mass Index (BMI) 43.8 Intake & Output: Intake and Output for Last 24 Hours 04/22/25 04/23/25 04/24/25 23:59 23:59 23:59 Intake Total 11.08 / 13.58 303.16 / 303.16 Output Total 700 / 700 Balance 11.08 / -386.42 -396.84 / -396.84 Lab / Micro Data 04/24/25 05:42 04/24/25 05:42 Labs: Laboratory Results - last 24 hr 04/23/25 17:50: WBC 9.0, RBC 4.07 L, Hgb 12.7, Hct 40.2, MCV 98.8, MCH 31.2, MCHC 31.6 L, RDW Std Deviation 51.3 H, RDW Coeff of Karly 14.2, Plt Count 285, MPV 10.4, Immature Gran % (Auto) 0.300, Neut % (Auto) 83.8 H, Lymph % (Auto) 7.9 L, [place] % (Auto) 6.6, Eos % (Auto) 0.8, Baso % (Auto) 0.6, Absolute Neuts (auto) 7.6, Absolute Lymphs (auto) 0.71 L, Nucleated RBC % 0, Sodium 145, Potassium 3.9, Chloride 96 L, Carbon Dioxide 38.0 H, Anion Gap 10, BUN 14, Creatinine 0.65L, Estim Creat Clear Calc 85.20, Est GFR (MDRD) Non-Af 97, BUN/Creatinine Ratio 22.2 H, Glucose 110 H, Calcium 9.6, Phosphorus 3.6, Magnesium 1.8, Troponin T High Sens < 6, Procalcitonin 0.14 H 04/23/25 19:50: Urine Color Yellow, Urine Clarity Clear, Urine pH 6.0, Ur Specific [place] 1.015, Urine Protein 30 H, Urine Glucose (UA) Normal, Urine Ketones 50 H, Urine Occult Blood Negative, Urine Nitrite Negative, Urine Bilirubin 1 H, Urine Urobilinogen 1 H, Ur Leukocyte Esterase 25 H, Urine RBC 0 SEEN, Urine WBC 10-25 SEEN, Ur Squamous Epith Cells 5-10 SEEN, Urine Bacteria 2+, Urine Mucus 2+ 04/23/25 19:55: Troponin T Hi Sens 2 Hr < 6 04/23/25 23:35: Troponin T Hi Sens 4Hr < 6 04/24/25 05:42: WBC 8.5, RBC 3.75 L, Hgb 11.5 L, Hct 37.8, MCV 100.8 H, MCH 30.7, MCHC 30.4 L, RDW Std Deviation 52.5 H, RDW Coeff of Karly 14.3, Plt Count 276, MPV 10.9, Immature Gran % (Auto) 0.200, Neut % (Auto) 83.2 H, Lymph % (Auto) 6.8 L, [place] % (Auto) 8.0, Eos % (Auto) 1.3, Baso % (Auto) 0.5, Absolute Neuts (auto) 7.1, Absolute Lymphs (auto) 0.58 L, Nucleated RBC % 0, Sodium 146 H, Potassium 4.6, Chloride 100, Carbon Dioxide 38.0 H, Anion Gap 8, BUN 13, Creatinine 0.63 L, Estim Creat Clear Calc 85.25, Est GFR (MDRD) Non-Af 97, BUN/Creatinine Ratio 20.9 H, Glucose 144 H, Calcium 9.4, Total Bilirubin 0.44, AST 21, ALT 30, Alkaline Phosphatase 112 H, Total Protein 6.6, Albumin 3.3 L, Globulin 3.3, Albumin/Globulin Ratio 1.0, Triglycerides 93, Cholesterol 138, LDLCholesterol, Calc 81, VLDL Cholesterol 19, HDL Cholesterol 38 L, Cholesterol/HDLRatio 3.62, TSH 1.970 Micro: Microbiology 04/24/25 01:36 Mucosa - Nasopharyngeal Respiratory Panel (PCR) - Final Radiography Diagnostic Testing: Radiology Impression Chest X-Ray 04/23/25 17:37 IMPRESSION: Cardiomegaly with mild congestion. Reading Location: [facility] Brain CT 04/23/25 18:04 IMPRESSION: 1. No acute intracranial hemorrhage, midline shift or mass effect. If symptoms persist, further evaluation with MRI is recommended. 2. Mild small vessel ischemic/degenerative changes. Reading Location: [facility] Physical Exam Narrative Seen and examined. Patient admitted for SOB and, rapid heart rate, new onset atrial flutter, COPD on 3 to 6 L of oxygen at baseline and chronic alcohol use. Scheduled with ladle handler for possible ablation. Patient was also having fever and PCP concern for UTI Currently on 6 L of oxygen Physical exam General: Alert, Oriented x3, Cooperative HEENT: Atraumatic, PERRLA, EOMI, Normocephalic. Oral: No Gingival or Mucosal Lesions/ Ulcerations Neck: Supple, No JVD, Negative Carotid Bruits Chest wall/Lungs: Air entry severely diminished in all lung yu. Silent chest Cardiovascular: Regular rate and rhythm, Normal S1,S2, No M/G/R Abdomen: Bowel Sounds Present, Soft, Non Tender, Non-Distended : No dysuria. No renal angle tenderness. No suprapubic tenderness. Extremities: Mild 1-2+ pitting edema, Capillary Refill Less than 3 Seconds Skin: No rashes, No breakdown Musculoskeletal: No Tenderness to Palpation of Joints or Extremities. ROM restricted Neurological: Cranial nerves II-XII grossly intact, DTR 2+/4. No acute focal neurological deficit. Psych/Mental Status: Normal Affect, Appropriate. Assessment & Plan Assessment/Plan (1) Atrial flutter with rapid ventricular response: PLAN: Plan The patient is a 69 y/o F admitted with fever 102 Fahrenheit on Saturday, URI symptoms nasal congestion, shortness of breath/dyspnea on her baseline 3 to 6 L of oxygen because of COPD and chronic alcohol use. No recent cough. There is concerned of UTI therefore was started on Macrobid but later on urine culture came back negative. She was tachycardic heart rate about 129 bpm in PCP office and was sent for admission. Denies chest pain abdominal pain nausea and vomiting #1. Mild COPD exacerbation from suspected viral infection: Patient is being admitted in the PCU. Currently on 6 L of oxygen. Patient is being managed on scheduled bronchodilator, Pulmicort aerosol twice daily, Mucinex, incentive spirometry and Pep. #2. Paroxsymal atrial flutter w/ RVR due to acute on chronic HFpEF: EKG in ED w/ atrial flutter w/ RVR. Patient administered Cardizem bolus and eventually placed on a drip in ED. Was started on Cardizem drip. Continue Eliquis. Cardizem drip is being tapered off, started on Cardizem 60 mg Q6 hourly. Recent echo on 02/19/2025 with borderline LV systolic function with LVEF 45 to 50%, moderate global RV systolic dysfunction, mild biatrial dilatation, moderateMVI, mild TBI, RVSP 53 mmHg Chest x-ray shows cardiomegaly and mild fluid congestion. Furosemide 40 mg IV twice daily #3. UTI ruled out and possible Macrobid allergic: Patient was started on Macrobid for concern of UTI but she developed a rash therefore was discontinued. Urine culture also negative therefore UTI ruled out #4. EtOH Abuse, recently cutting back: Currently she drinks 2/day, total 14 drinks weekly and therefore advised to quit it. She was also told by her ladle handler Dr. Bryan Elena to be cautious will maintain on CIWA protocol, MVI, thiamine and folic acid. #5. Hypertension: Continue home regimen including Lasix, metoprolol, as needed hydralazine #6. Hyperlipidemia: Triglycerides 93, Cholesterol 138, LDL Cholesterol, Calc 81, VLDL Cholesterol 19, HDL Cholesterol 38 L, Cholesterol/HDL Ratio 3.62, TSH 1.970. Started on atorvastatin 20 mg daily. #7. Morbid Obesity: Weight loss and lifestyle changes encouraged. #8. History of VTE: Patient with history of DVT, PE, continue Eliquis home regimen. #9. She quit smoking about 10 years ago. Total more than 40 pack years of a smoker #10. ROXY: Patient reports that she only uses supplemental oxygen, no PAP therapy. Follows floorworker lasting Dr. Diana gonzalez #11. DVT prophylaxis: Will continue patient on Eliquis regimen. #12. CODE status: Patient ARACELI is her daughter and living will is currently inplace. Discussed CODE status at length including difference between FULL code, DNR-CCA and DNR-CC status. Following discussions about the differences in these status, requested Full Code status. Microbiology Past 72 Hours 04/24/25 01:36 Mucosa - Nasopharyngeal Respiratory Panel (PCR) - Final Laboratory Results 04/23/25 17:50: WBC 9.0, RBC 4.07 L, Hgb 12.7, Hct 40.2, MCV 98.8, MCH 31.2, MCHC 31.6 L, RDW Std Deviation 51.3 H, RDW Coeff of Karly 14.2, Plt Count 285, MPV 10.4, Immature Gran % (Auto) 0.300, Neut % (Auto) 83.8 H, Lymph % (Auto) 7.9 L, [place] % (Auto) 6.6, Eos % (Auto) 0.8, Baso % (Auto) 0.6, Absolute Neuts (auto) 7.6, Absolute Lymphs (auto) 0.71 L, Nucleated RBC % 0, Sodium 145, Potassium 3.9, Chloride 96 L, Carbon Dioxide 38.0 H, Anion Gap 10, BUN 14, Creatinine 0.65L, Estim Creat Clear Calc 85.20, Est GFR (MDRD) Non-Af 97, BUN/Creatinine Ratio 22.2 H, Glucose 110 H, Calcium 9.6, Phosphorus 3.6, Magnesium 1.8, Troponin T High Sens < 6, Procalcitonin 0.14 H 04/23/25 19:50: Urine Color Yellow, Urine Clarity Clear, Urine pH 6.0, Ur Specific [place] 1.015, Urine Protein 30 H, Urine Glucose (UA) Normal, Urine Ketones 50 H, Urine Occult Blood Negative, Urine Nitrite Negative, Urine Bilirubin 1 H, Urine Urobilinogen 1 H, Ur Leukocyte Esterase 25 H, Urine RBC 0 SEEN, Urine WBC 10-25 SEEN, Ur Squamous Epith Cells 5-10 SEEN, Urine Bacteria 2+, Urine Mucus 2+ 04/23/25 19:55: Troponin T Hi Sens 2 Hr < 6 04/23/25 23:35: Troponin T Hi Sens 4Hr < 6 04/24/25 05:42: WBC 8.5, RBC 3.75 L, Hgb 11.5 L, Hct 37.8, MCV 100.8 H, MCH 30.7, MCHC 30.4 L, RDW Std Deviation 52.5 H, RDW Coeff of Karly 14.3, Plt Count 276, MPV 10.9, Immature Gran % (Auto) 0.200, Neut % (Auto) 83.2 H, Lymph % (Auto) 6.8 L, [place] % (Auto) 8.0, Eos % (Auto) 1.3, Baso % (Auto) 0.5, Absolute Neuts (auto) 7.1, Absolute Lymphs (auto) 0.58 L, Nucleated RBC % 0, Sodium 146 H, Potassium 4.6, Chloride 100, Carbon Dioxide 38.0 H, Anion Gap 8, BUN 13, Creatinine 0.63 L, Estim Creat Clear Calc 85.25, Est GFR (MDRD) Non-Af 97, BUN/Creatinine Ratio 20.9 H, Glucose 144 H, Calcium 9.4, Total Bilirubin 0.44, AST 21, ALT 30, Alkaline Phosphatase 112 H, Total Protein 6.6, Albumin 3.3 L, Globulin 3.3, Albumin/Globulin Ratio 1.0, Triglycerides 93, Cholesterol 138, LDLCholesterol, Calc 81, VLDL Cholesterol 19, HDL Cholesterol 38 L, Cholesterol/HDLRatio 3.62, TSH 1.970 Charges/Coding Visit Charges Inpatient E&M: 07399 Subs Hosp L2 04/24/25 1321 <Electronically signed by George Polanco MD> Cosigner Signature (if applicable): CC: ~ Signed ADDENDUM by Dr. George Polanco MD on 04/24/25 at 1322 Addendum Started on atorvastatin 40 mg daily at bedtime 04/24/25 1322<Electronically signed by George Polanco MD> Cosigner Signature (if applicable): cc: ~* Signed [facility] Work Phone: [phone] Progress note [facility] Medical Records Department [address] [place] [address] Progress Note - Hospitalist 04/24/25 0810 MR#: [id number] Acct: [id number] Name: LISA LUCERO Bora Rep #:[id number] : 1955 69 From: George Willis PCP: Dr. Phuc Martines, DO Status:AD M IN Location: [place] [address] Reason for Visit Reason for Visit: Diagnoses Unspecified atrial flutter (04/23/25) Objective Data Objective Data Vital Signs: Vital Signs Temp Pulse Resp BP Pulse Ox O2 Del Method O2 Flow Rate 99.0 F 99 25 H 124/89 H 89 Nasal Cannula 6 04/24/25 03:00 04/24/25 07:42 04/24/25 07:00 04/24/25 07:42 04/24/25 07:00 04/24/25 07:00 04/24/25 07:00 Oxygen Flow Rate (L/min) 6 Oxygen Delivery Method Nasal Cannula Weight: 255 lb 4.725 oz Body Mass Index (BMI) 43.8 Intake & Output: Intake and Output for Last 24 Hours 04/22/25 04/23/25 04/24/25 23:59 23:59 23:59 Intake Total 11.08 / 13.58 303.16 / 303.16 Output Total 700 / 700 Balance 11.08 / -386.42 -396.84 / -396.84 Lab / Micro Data 04/24/25 05:42 04/24/25 05:42 Labs: Laboratory Results - last 24 hr 04/23/25 17:50: WBC 9.0, RBC 4.07 L, Hgb 12.7, Hct 40.2, MCV 98.8, MCH 31.2, MCHC 31.6 L, RDW Std Deviation 51.3 H, RDW Coeff of Karly 14.2, Plt Count 285, MPV 10.4, Immature Gran % (Auto) 0.300, Neut % (Auto) 83.8 H, Lymph % (Auto) 7.9 L, [place] % (Auto) 6.6, Eos % (Auto) 0.8, Baso % (Auto) 0.6, Absolute Neuts (auto) 7.6, Absolute Lymphs (auto) 0.71 L, Nucleated RBC % 0, Sodium 145, Potassium 3.9, Chloride 96 L, Carbon Dioxide 38.0 H, Anion Gap 10, BUN 14, Creatinine 0.65L, Estim Creat Clear Calc 85.20, Est GFR (MDRD) Non-Af 97, BUN/Creatinine Ratio 22.2 H, Glucose 110 H, Calcium 9.6, Phosphorus3.6, Magnesium 1.8, Troponin T High Sens < 6, Procalcitonin 0.14 H 04/23/25 19:50: Urine Color Yellow, Urine Clarity Clear, Urine pH 6.0, Ur Specific [place] 1.015, Urine Protein 30 H, Urine Glucose (UA) Normal, Urine Ketones 50 H, Urine Occult Blood Negative, UrineNitrite Negative, Urine Bilirubin 1 H, Urine Urobilinogen 1 H, Ur Leukocyte Esterase 25 H, Urine RBC 0 SEEN, Urine WBC 10-25 SEEN, Ur Squamous Epith Cells 5-10 SEEN, Urine Bacteria 2+, Urine Mucus 2+ 04/23/25 19:55: Troponin T Hi Sens 2 Hr < 6 04/23/25 23:35: Troponin T Hi Sens 4Hr < 6 04/24/25 05:42: WBC 8.5, RBC 3.75 L, Hgb 11.5 L, Hct 37.8, MCV 100.8 H, MCH 30.7, MCHC 30.4 L, RDW Std Deviation 52.5 H, RDW Coeff of Karly 14.3, Plt Count 276, MPV 10.9, Immature Gran % (Auto) 0.200, Neut % (Auto) 83.2 H, Lymph % (Auto) 6.8 L, [place] % (Auto) 8.0, Eos % (Auto) 1.3, Baso % (Auto) 0.5, Absolute Neuts (auto) 7.1, Absolute Lymphs (auto) 0.58 L, Nucleated RBC % 0, Sodium 146 H, Potassium4.6, Chloride 100, Carbon Dioxide 38.0 H, Anion Gap 8, BUN 13, Creatinine 0.63 L, Estim Creat ClearCalc 85.25, Est GFR (MDRD) Non-Af 97, BUN/Creatinine Ratio 20.9 H, Glucose 144 H, Calcium 9.4, Total Bilirubin 0.44, AST 21, ALT 30, Alkaline Phosphatase 112 H, Total Protein 6.6, Albumin 3.3 L, Globulin 3.3, Albumin/Globulin Ratio 1.0, Triglycerides 93, Cholesterol 138, LDLCholesterol, Calc 81, VLDL Cholesterol 19, HDL Cholesterol 38 L, Cholesterol/HDLRatio 3.62, TSH 1.970 Micro: Microbiology 04/24/25 01:36 Mucosa - Nasopharyngeal Respiratory Panel (PCR) - Final Radiography Diagnostic Testing: Radiology Impression Chest X-Ray 04/23/25 17:37 IMPRESSION: Cardiomegaly with mild congestion. Reading Location: [facility] Brain CT 04/23/25 18:04 IMPRESSION: 1. No acute intracranial hemorrhage, midline shift or mass effect. If symptoms persist, further evaluation with MRI is recommended. 2. Mild small vessel ischemic/degenerative changes. Reading Location: [facility] Physical Exam Narrative Seen and examined. Patient admitted for SOB and, rapid heart rate, new onset atrial flutter, COPD on 3 to 6 L of oxygen at baseline and chronic alcohol use. Scheduled with ladle handler for possible ablation. Patient was also having fever and PCP concern for UTI Currently on 6 L of oxygen Physical exam General: Alert, Oriented x3, Cooperative HEENT: Atraumatic, PERRLA, EOMI, Normocephalic. Oral: No Gingival or Mucosal Lesions/ Ulcerations Neck: Supple, No JVD, Negative Carotid Bruits Chest wall/Lungs: Air entry severely diminished in all lung yu. Silent chest Cardiovascular: Regular rate and rhythm, Normal S1,S2, No M/G/R Abdomen: Bowel Sounds Present, Soft, Non Tender, Non-Distended : No dysuria. No renal angle tenderness. No suprapubic tenderness. Extremities: Mild 1-2+ pitting edema, Capillary Refill Less than 3 Seconds Skin: No rashes, No breakdown Musculoskeletal: No Tenderness to Palpation of Joints or Extremities. ROM restricted Neurological: Cranial nerves II-XII grossly intact, DTR 2+/4. No acute focal neurological deficit. Psych/Mental Status: Normal Affect, Appropriate. Assessment & Plan Assessment/Plan (1) Atrial flutter with rapid ventricular response: PLAN: Plan The patient is a 69 y/o F admitted with fever 102 Fahrenheit on Saturday, URI symptoms nasal congestion, shortness of breath/dyspnea on her baseline 3 to 6 L of oxygen because of COPD and chronic alcohol use. No recent cough. There is concerned of UTI therefore was started on Macrobid but later on urine culture came back negative. She was tachycardic heart rate about 129 bpm in PCP office and wassent for admission. Denies chest pain abdominal pain nausea and vomiting #1. Mild COPD exacerbation from suspected viral infection: Patient is being admitted in the PCU. Currently on 6 L of oxygen. Patient is being managed on scheduled bronchodilator, Pulmicort aerosol twice daily, Mucinex, incentive spirometry and Pep. #2. Paroxsymal atrial flutter w/ RVR due to acute on chronic HFpEF: EKG in ED w/ atrial flutter w/ RVR. Patient administered Cardizem bolus and eventually placed on a drip in ED. Was started on Cardizem drip. Continue Eliquis. Cardizem drip is being tapered off, started on Cardizem 60 mg Q6 hourly. Recent echo on 02/19/2025 with borderline LV systolic function with LVEF 45 to 50%, moderate global RV systolic dysfunction, mild biatrial dilatation, moderateMVI, mild TBI, RVSP 53 mmHg Chest x-ray shows cardiomegaly and mild fluid congestion. Furosemide 40 mg IV twice daily #3. UTI ruled out and possible Macrobid allergic: Patient was started on Macrobid for concern of UTI but she developed a rash therefore was discontinued. Urine culture also negative therefore UTI ruled out #4. EtOH Abuse, recently cutting back: Currently she drinks 2/day, total 14 drinks weekly and therefore advised to quit it. She was also told by her ladle handler Dr. Bryan Elena to be cautious will maintain on CIWA protocol, MVI, thiamine and folic acid. #5. Hypertension: Continue home regimen including Lasix, metoprolol, as needed hydralazine #6. Hyperlipidemia: Triglycerides 93, Cholesterol 138, LDL Cholesterol, Calc 81, VLDL Cholesterol 19, HDL Cholesterol 38 L, Cholesterol/HDL Ratio 3.62, TSH 1.970. Started on atorvastatin 20 mg daily. #7. Morbid Obesity: Weight loss and lifestyle changes encouraged. #8. History of VTE: Patient with history of DVT, PE, continue Eliquis home regimen. #9. She quit smoking about 10 years ago. Total more than 40 pack years of a smoker #10. ROXY: Patient reports that she only uses supplemental oxygen, no PAP therapy. Follows floorworker lasting Dr. Diana gonzalez #11. DVT prophylaxis: Will continue patient on Eliquis regimen. #12. CODE status: Patient ARACELI is her daughter and living will is currently inplace. Discussed CODE status at length including difference between FULL code, DNR-CCA and DNR-CC status. Following discussions about the differences in these status, requested Full Code status. Microbiology Past 72 Hours 04/24/25 01:36 Mucosa - Nasopharyngeal Respiratory Panel (PCR) - Final Laboratory Results 04/23/25 17:50: WBC 9.0, RBC 4.07 L, Hgb 12.7, Hct 40.2, MCV 98.8, MCH 31.2, MCHC 31.6 L, RDW Std Deviation 51.3 H, RDW Coeff of Karly 14.2, Plt Count 285, MPV 10.4, Immature Gran % (Auto) 0.300, Neut % (Auto) 83.8 H, Lymph % (Auto) 7.9 L, [place] % (Auto) 6.6, Eos % (Auto) 0.8, Baso % (Auto) 0.6, Absolute Neuts (auto) 7.6, Absolute Lymphs (auto) 0.71 L, Nucleated RBC % 0, Sodium 145, Potassium 3.9, Chloride 96 L, Carbon Dioxide 38.0 H, Anion Gap 10, BUN 14, Creatinine 0.65L, Estim Creat Clear Calc 85.20, Est GFR (MDRD) Non-Af 97, BUN/Creatinine Ratio 22.2 H, Glucose 110 H, Calcium 9.6, Phosphorus3.6, Magnesium 1.8, Troponin T High Sens < 6, Procalcitonin 0.14 H 04/23/25 19:50: Urine Color Yellow, Urine Clarity Clear, Urine pH 6.0, Ur Specific [place] 1.015, Urine Protein 30 H, Urine Glucose (UA) Normal, Urine Ketones 50 H, Urine Occult Blood Negative, UrineNitrite Negative, Urine Bilirubin 1 H, Urine Urobilinogen 1 H, Ur Leukocyte Esterase 25 H, Urine RBC 0 SEEN, Urine WBC 10-25 SEEN, Ur Squamous Epith Cells 5-10 SEEN, Urine Bacteria 2+, Urine Mucus 2+ 04/23/25 19:55: Troponin T Hi Sens 2 Hr < 6 04/23/25 23:35: Troponin T Hi Sens 4Hr < 6 04/24/25 05:42: WBC 8.5, RBC 3.75 L, Hgb 11.5 L, Hct 37.8, MCV 100.8 H, MCH 30.7, MCHC 30.4 L, RDW Std Deviation 52.5 H, RDW Coeff of Karly 14.3, Plt Count 276, MPV 10.9, Immature Gran % (Auto) 0.200, Neut % (Auto) 83.2 H, Lymph % (Auto) 6.8 L, [place] % (Auto) 8.0, Eos % (Auto) 1.3, Baso % (Auto) 0.5, Absolute Neuts (auto) 7.1, Absolute Lymphs (auto) 0.58 L, Nucleated RBC % 0, Sodium 146 H, Potassium4.6, Chloride 100, Carbon Dioxide 38.0 H, Anion Gap 8, BUN 13, Creatinine 0.63 L, Estim Creat ClearCalc 85.25, Est GFR (MDRD) Non-Af 97, BUN/Creatinine Ratio 20.9 H, Glucose 144 H, Calcium 9.4, Total Bilirubin 0.44, AST 21, ALT 30, Alkaline Phosphatase 112 H, Total Protein 6.6, Albumin 3.3 L, Globulin 3.3, Albumin/Globulin Ratio 1.0, Triglycerides 93, Cholesterol 138, LDLCholesterol, Calc 81, VLDL Cholesterol 19, HDL Cholesterol 38 L, Cholesterol/HDLRatio 3.62, TSH 1.970 Charges/Coding Visit Charges Inpatient E&M: 55624 Subs Hosp L2 04/24/25 1321 Cosigner Signature (if applicable): CC: ~ Signed ADDENDUM by Dr. George Polanco MD on 04/24/25 at 1322 Addendum Started on atorvastatin 40 mg daily at bedtime 04/24/25 1322 Cosigner Signature (if applicable): cc: ~* Signed [facility]06-28-2025 Discharge summary Author Cele Morgan [facility] Note Date/Time April 24, 2025 12:[address] [facility] Medical Records Department [address] [place] [address] Emergency Department Summary 04/23/25 MR#: [id number] Acct: [id number] Name: LISA LUCERO Rep #:[id number] : 1955 69 From: Cele LYNN PCP: Dr. Phuc Martines, DO Status:AD M IN Location: [facility] [id number] HPI <LEAH Cooley - Last Filed: 04/23/25 21:52> History of Present Illness Chief Complaint: Palpitations Narrative Narrative: Patient presenting today after being seen in her PCPs office due to dyspnea. She has a history of A-fib/flutter on Eliquis, COPD on 3 to 6 L at baseline, andalcohol use. She reports that she has chronic dyspnea at baseline that has beenprogressively getting worse. She denies any recent illness or cough. She denies any history of blood clots and is compliant with her Eliquis. She had a fever of 102 ?F on Saturday. She was also experiencing some nasal congestion and went to urgent care, she was also concerned she could have had a UTI and wasstarted on Macrobid. She did have a urine culture that came back negative. Shesaw her PCP today in the office and was tachycardic with a heart rate around 129bpm, she was then encouraged to come in for evaluation. She denies chest pain, abdominal pain, nausea, and vomiting. PFSH <LEAH Cooley - Last Filed: 04/23/25 21:52> PFSH Medical History Pulmonary nodule Atrial flutter Shortness of breath ROXY (obstructive sleep apnea) Leiomyoma of uterus Internal hemorrhoids with complication Hypertension Diverticulosis of colon Chronic hypoxemic respiratory failure Alcohol abuse Former smoker On home oxygen therapy Irregular heart beat Atrial fibrillation COPD (chronic obstructive pulmonary disease) Home Medications ?Medication ?Instructions ?Recorded ?Last Taken ?Type Oxygen, Home [Home Oxygen] 2 - 4 lpm QHS 11/13/1701/27 History albuterol sulfate 90 mcg/actuation 2 inh inhalation [...] BID PRN dry 02/19/25 Unknown History aerosol ([place] Saline) nasal passages triamcinolone acetonide 0.5 % 1 applic topical BID PRN itching 02/19/25 Unknown History topical cream apixaban 5 mg tablet (Eliquis) 5 mg PO BID #60 tabs Unknown Rx furosemide 40 mg tablet 40 mg PO BID #60 tabs Unknown Rx metoprolol tartrate 50 mg tablet 50 mg PO BID #60 tabs 02/23/25 Unknown Rx potassium chloride 20 mEq 20 meq PO BID #60 tabs 02/23 Unknown Rx tablet,extended release(part/cryst) (Klor-Con M) ascorbic acid (vitamin C) 500 mg 500 mg PO DAILY PRN 0 03/30/25 Unknown History capsule cinnamon bark 500 mg capsule 500 mg PO QDAY 03/30/25 U nknown History (Cinnamon) mecobalamin (vitamin B12) 1,000 1,000 mcg PO QDAY 01/19 Unknown History mcg chewable tablet Allergy/AdvReac Type Severity Reaction Status Date / Time ibuprofen (From Advil) Allergy Mild Hives Verified 04/23/25 16:17 Family History Father Cancer Mother COPD (chronic obstructive pulmonary disease) Alcoholism Grandmother Hypertension Thyroid disorder Surgical History History of surgery History of colonoscopy History of lumpectomy of right breast Hx of inguinal herniorrhaphy Social History Smoking Status: Former smoker alcohol intake: current substance use type: does not use caffeine: Yes ROS <LEAH Cooley - Last Filed: 04/23/25 21:52> ROS ED Constitutional Constitutional ED: Reports fever(s); Denies chills Cardiovascular Cardiovascular: Denies chest pain Respiratory/Chest Respiratory/Chest: Reports dyspnea on exertion; Denies cough Gastrointestinal Gastrointestinal: Denies abdominal pain, nausea or vomiting Musculoskeletal Musculoskeletal: Denies arthralgias or myalgias Integumentary Denies rash Neurologic Neurologic: Denies weakness EXAM <LEAH Cooley - Last Filed: 04/23/25 21:52> Physical Exam Const Vital Signs: 04/23/25 16:18 04/23/25 16:50 04/23/25 16:50 Temperature 99.3 F H Temperature Source Oral Pulse Rate 129 H 125 H Respiratory Rate 20 H 16 Respiratory Effort Blood Pressure 133/96 H Blood Pressure Mean 108 Pulse Ox 90 93 Oxygen Delivery Method Nasal Cannula Nasal Cannula Nasal Cannula Oxygen Flow Rate (L/min) 3.5 3.5 04/23/25 16:50 04/23/25 17:21 04/23/25 18:00 Temperature Temperature Source Pulse Rate 104 H 89 Respiratory Rate 24 H 22 H Respiratory Effort Short of Breath Blood Pressure 133/76 H 163/80 H Blood Pressure Mean 95 107 Pulse Ox 94 95 Oxygen Delivery Method Nasal Cannula Nasal Cannula Oxygen Flow Rate (L/min) 4 04/23/25 19:14 04/23/25 20:05 04/23/25 20:15 Temperature Temperature Source Pulse Rate 94 104 H 96 Respiratory Rate 16 22 H 29 H Respiratory Effort Blood Pressure 133/76 H 185/116 H Blood Pressure Mean 95 133 Pulse Ox 93 91 100 Oxygen Delivery Method Oxygen Flow Rate (L/min) 04/23/25 20:30 04/23/25 20:45 04/23/25 21:00 Temperature Temperature Source Pulse Rate 114 H 93 126 H Respiratory Rate 25 H 32 H 24 H Respiratory Effort Blood Pressure 174/154 H 193/118 H 156/92 H Blood Pressure Mean 162 141 113 Pulse Ox 94 92 94 Oxygen Delivery Method Nasal Cannula Oxygen Flow Rate (L/min) 3.5 Positive well nourished, well developed and no apparent distress General Appearance ED: well developed HEENT Reports normocephalic and head/scalp atraumatic Mouth ED: Yes moist mucous membranes normal Eyes PERRL and EOMs intact bilaterally Neck full ROM and supple Chest Wall inspection of chest normal Resp normal respiratory effort and clear to auscultation bilaterally Cardio regular rate and regular rhythm GI soft to palpation, non-tender, non-distended and no masses Back/Spine normal ROM and normal to inspection Extremity normal to inspection and full ROM General Extremety ED: Negative for edema General Extremity: Negative for edema Neuro oriented x3, CN's II-XII intact bilaterally, moves all extremities, no focal motor deficits and no sensory deficits noted Sensorium / Orientation: awake and alert Psych mental status grossly normal and thought process normal Skin no rashes or lesions noted and no wounds <Dr. Clay Hager MD - Last Filed: 04/23/25 20:27> Physical Exam Const Vital Signs: 04/23/25 16:18 04/23/25 16:50 04/23/25 16:50 Temperature 99.3 F H Temperature Source Oral Pulse Rate 129 H 125 H Respiratory Rate 20 H 16 Respiratory Effort Blood Pressure 133/96 H Blood Pressure Mean 108 Pulse Ox 90 93 Oxygen Delivery Method Nasal Cannula Nasal Cannula Nasal Cannula Oxygen Flow Rate (L/min) 3.5 3.5 04/23/25 16:50 04/23/25 17:21 04/23/25 18:00 Temperature Temperature Source Pulse Rate 104 H 89 Respiratory Rate 24 H 22 H Respiratory Effort Short of Breath Blood Pressure 133/76 H 163/80 H Blood Pressure Mean 95 107 Pulse Ox 94 95 Oxygen Delivery Method Nasal Cannula Nasal Cannula Oxygen Flow Rate (L/min) 4 04/23/25 19:14 04/23/25 20:05 04/23/25 20:15 Temperature Temperature Source Pulse Rate 94 104 H 96 Respiratory Rate 16 22 H 29 H Respiratory Effort Blood Pressure 133/76 H 185/116 H Blood Pressure Mean 95 133 Pulse Ox 93 91 100 Oxygen Delivery Method Oxygen Flow Rate (L/min) 04/23/25 20:30 04/23/25 20:45 04/23/25 21:00 Temperature Temperature Source Pulse Rate 114 H 93 126 H Respiratory Rate 25 H 32 H 24 H Respiratory Effort Blood Pressure 174/154 H 193/118 H 156/92 H Blood Pressure Mean 162 141 113 Pulse Ox 94 92 94 Oxygen Delivery Method Nasal Cannula Oxygen Flow Rate (L/min) 3.5 MDM <LEAH Cooley - Last Filed: 04/23/25 21:52> [facility] MDM Narrative Medical decision making narrative: Patient presenting today after being sent over by her PCPs office due to concerns for tachycardia. She has a history of A-fib/flutter on Eliquis. She is compliant with her medications. She has chronic dyspnea due to her history of COPD but has been feeling more dyspneic recently. She had a echo in 2022 that showed an EF of 60%. Cardiac labs obtained, her CBC and BMP are largely unremarkable, initial troponin unremarkable. Low suspicion for PE given she is on Eliquis. Chest x-ray shows cardiomegaly with mild congestion. Her O2 saturation has remained above 90% on her normal home O2. She was given IV Cardizem due to a heart rate of 129 bpm, repeat heart rate is 89 bpm. She did become tachycardic again with a heart rate around 129 bpm. On further questioning she did admit to daily alcohol use, she reports that she has about 2shots daily, she does not feel that she is going through alcohol withdrawal. She was placed on a Cardizem drip. She will be admitted to the hospital in stable condition. I have personally performed a face to face assessment of the patient and have reviewed the SACHI Note. I performed a substantive portion of the visit including all aspects of the following. My diaz findings include: History is 69-year-old female sent in due to accelerated heart rate history of recently diagnosed atrial flutter on beta-stefanie. Exam is [C 9-year-old female vital signs stable she is tachycardic 129 atrial flutter on the monitor. Temperature nine 9.3. H EENT exam pupils round react to light. Moist with membranes. Neck nontender no lymphadenopathy. Lungs clear to auscultation. Heart tachycardic 130 no murmur. Chest wall ribs nontender. Abdomen soft nontender. Moving all 4 extremities. Nontender. Neurologically patient awake alert. Answer questions following commands.] Medical Decision Making [patient with atrial flutter rapid rate. Treated with IV Cardizem. Screening labs being obtained. Due to a recent fever even though clinically she looks benign we checked a chest x-ray and a UA.] Other additions or changes: [None] Lab Data Attestation: I reviewed the patient's lab results. Labs: Laboratory Results - last 24 hr 04/23/25 04/23/25 04/23/25 17:50 19:50 19:55 WBC 9.0 RBC 4.07 L Hgb 12.7 Hct 40.2 MCV 98.8 MCH 31.2 MCHC 31.6 L RDW Std Deviation 51.3 H RDW Coeff of Karly 14.2 Plt Count 285 MPV 10.4 Immature Gran % (Auto) 0.300 Neut % (Auto) 83.8 H Lymph % (Auto) 7.9 L [place] % (Auto) 6.6 Eos % (Auto) 0.8 Baso % (Auto) 0.6 Absolute Neuts (auto) 7.6 Absolute Lymphs (auto) 0.71 L Nucleated RBC % 0 Sodium 145 Potassium 3.9 Chloride 96 L Carbon Dioxide 38.0 H Anion Gap 10 BUN 14 Creatinine 0.65 L Estim Creat Clear Calc 85.20 Est GFR (MDRD) Non-Af 97 BUN/Creatinine Ratio 22.2 H Glucose 110 H Calcium 9.6 Troponin T High Sens < 6 Troponin T Hi Sens 2 Hr < 6 Urine Color Yellow Urine Clarity Clear Urine pH 6.0 Ur Specific [place] 1.015 Urine Protein 30 H Urine Glucose (UA) Normal Urine Ketones 50 H Urine Occult Blood Negative Urine Nitrite Negative Urine Bilirubin 1 H Urine Urobilinogen 1 H Ur Leukocyte Esterase 25 H Urine RBC 0 SEEN Urine WBC 10-25 SEEN Ur Squamous Epith Cells 5-10 SEEN Urine Bacteria 2+ Urine Mucus 2+ Radiography X-Ray: Read by ED Physician Diagnostic Testing: Clinical Impression(s) from Imaging Studies Chest X-Ray 04/23/25 17:37 IMPRESSION: Cardiomegaly with mild congestion. Reading Location: [facility] Brain CT 04/23/25 18:04 IMPRESSION: 1. No acute intracranial hemorrhage, midline shift or mass effect. If symptoms persist, further evaluation with MRI is recommended. 2. Mild small vessel ischemic/degenerative changes. Reading Location: [facility] EKG Initial EKG: Comments: 129 bpm, atrial flutter, no ST elevation, interpreted by attending ED physician <Dr. Clay Hager MD - Last Filed: 04/23/25 20:27> [facility] MDM Narrative Medical decision making narrative: Patient presenting today after being sent over by her PCPs office due to concerns for tachycardia. She has a history of A-fib/flutter on Eliquis. She is compliant with her medications. She has chronic dyspnea due to her history of COPD but has been feeling more dyspneic recently. She had a echo in 2022 that showed an EF of 60%. Cardiac labs obtained, her CBC and BMP are largely unremarkable, initial troponin unremarkable. Chest x-ray shows cardiomegaly with mild congestion. Her O2 saturation has remained above 90% on her normal home O2. She was given IV Cardizem due to a heart rate of 129 bpm, repeat heart rate is 89 bpm. I have personally performed a face to face assessment of the patient and have reviewed the SACHI Note. I performed a substantive portion of the visit including all aspects of the following. My diaz findings include: History is 69-year-old female sent in due to accelerated heart rate history of recently diagnosed atrial flutter on beta-stefanie. Exam is [C 9-year-old female vital signs stable she is tachycardic 129 atrial flutter on the monitor. Temperature nine 9.3. H EENT exam pupils round react to light. Moist with membranes. Neck nontender no lymphadenopathy. Lungs clear to auscultation. Heart tachycardic 130 no murmur. Chest wall ribs nontender. Abdomen soft nontender. Moving all 4 extremities. Nontender. Neurologically patient awake alert. Answer questions following commands.] Medical Decision Making [patient with atrial flutter rapid rate. Treated with IV Cardizem. Screening labs being obtained. Due to a recent fever even though clinically she looks benign we checked a chest x-ray and a UA.] Other additions or changes: [None] History & Record Review Discussion w/independent historian: Patient and Family Additional record(s) reviewed:: Prior inpatient record, Prior outpatient record, Prior ED visit and Prior labs Lab Data Lab results narrative: CBC white count 9 H&H 12 and 40. Platelets 285. Electrolytes shows sodium 145. Gap 10. BUN and creatinine 14 and 0.6. Glucose 110. Troponin less than 6. Labs: Laboratory Results - last 24 hr 04/23/25 04/23/25 04/23/25 17:50 19:50 19:55 WBC 9.0 RBC 4.07 L Hgb 12.7 Hct 40.2 MCV 98.8 MCH 31.2 MCHC 31.6 L RDW Std Deviation 51.3 H RDW Coeff of Karly 14.2 Plt Count 285 MPV 10.4 Immature Gran % (Auto) 0.300 Neut % (Auto) 83.8 H Lymph % (Auto) 7.9 L [place] % (Auto) 6.6 Eos % (Auto) 0.8 Baso % (Auto) 0.6 Absolute Neuts (auto) 7.6 Absolute Lymphs (auto) 0.71 L Nucleated RBC % 0 Sodium 145 Potassium 3.9 Chloride 96 L Carbon Dioxide 38.0 H Anion Gap 10 BUN 14 Creatinine 0.65 L Estim Creat Clear Calc 85.20 Est GFR (MDRD) Non-Af 97 BUN/Creatinine Ratio 22.2 H Glucose 110 H Calcium 9.6 Troponin T High Sens < 6 Troponin T Hi Sens 2 Hr < 6 Urine Color Yellow Urine Clarity Clear Urine pH 6.0 Ur Specific [place] 1.015 Urine Protein 30 H Urine Glucose (UA) Normal Urine Ketones 50 H Urine Occult Blood Negative Urine Nitrite Negative Urine Bilirubin 1 H Urine Urobilinogen 1 H Ur Leukocyte Esterase 25 H Urine RBC 0 SEEN Urine WBC 10-25 SEEN Ur Squamous Epith Cells 5-10 SEEN Urine Bacteria 2+ Urine Mucus 2+ Radiography Diagnostic Testing: Clinical Impression(s) from Imaging Studies Chest X-Ray 04/23/25 17:37 IMPRESSION: Cardiomegaly with mild congestion. Reading Location: [facility] Brain CT 04/23/25 18:04 IMPRESSION: 1. No acute intracranial hemorrhage, midline shift or mass effect. If symptoms persist, further evaluation with MRI is recommended. 2. Mild small vessel ischemic/degenerative changes. Reading Location: [facility] Discharge Plan Triage Chief Complaint: Palpitations ED Midlevel Provider: Cele Morgan ED Provider: Clay Hager Dx/Rx/DC Orders Clinical Impression: Shortness of breath, On home oxygen therapy, Alcohol abuse, Hypertension, COPD (chronic obstructive pulmonary disease), Atrial flutter Prescriptions: No Action cinnamon bark [Cinnamon] 500 mg capsule 500 mg PO QDAY mecobalamin (vitamin B12) 1,000 mcg tablet,chewable 1,000 mcg PO QDAY Oxygen, Home [Home Oxygen] 2 - 4 lpm NASAL QHS ascorbic acid (vitamin C) 500 mg capsule 500 mg PO DAILY PRN albuterol sulfate 90 mcg/actuation aerosol powdr breath activated 2 inh inhalation Q6H PRN (Reason: shortness of breath) Trelegy Ellipta 200-62.5-25 mcg blister with device 1 ea inhalation DAILY triamcinolone acetonide 0.5 % cream 1 applic topical BID PRN (Reason: itching) ipratropium-albuterol 0.5 mg-3 mg(2.5 mg base)/3 mL solution for nebulization 3 ml inhalation Q6H PRN (Reason: shortness of breath) multivitamin [Daily Multi-Vitamin] Tablet 1 tab PO DAILY [place] Saline 0.65 % aerosol,spray 1 spray intranasal BID PRN (Reason: dry nasal passages) guaifenesin [Mucus Relief ER] 1,200 MG tablet 1,200 mg PO BID PRN (Reason: cough) metoprolol tartrate 50 mg Tablet 50 mg PO BID Qty: 60 2RF furosemide 40 mg tablet 40 mg PO BID Qty: 60 2RF potassium chloride [Klor-Con M20] 20 mEq tablet,ER particles/crystals 20 meq PO BID Qty: 60 2RF Eliquis 5 mg Tablet 5 mg PO BID Qty: 60 2RF Primary Care Provider: Phuc Martines Referrals: Phuc Martines DO [Primary Care Provider] - Print Language: Nicaraguan Disposition Disposition: Acute Care Hospital [facility] What to do if you have Problems For any increased pain, shortness of breath, bleeding, nausea or vomiting, chestpain, or any unexpected problems, contact your Primary Care Provider. Call [facility] ([phone]) or report to the closest Emergency Room. Call 911 if necessary. 04/23/252 <Electronically signed by Cele LYNN> Cosigner Signature (if applicable): 04/24/25 0000 <Electronically signed by Clay Hager MD> CC: Dr. Phuc Martines, ~ Signed [facility] Work Phone: [phone] 943-497506-28-2025 History and physical note Author Virginia Henriquez [facility] Note Date/Time April 23, 2025 10:[address] [facility] Medical Records Department [address] [place] [address] H&P Exam - Hospitalist 04/23/252148 MR#: [id number] Acct: [id number] Name: LISA LUCERO Rep #:[id number] : 1955 69 From: Virginia Henriquez MD PCP: Dr. Phuc Martines DO Status:AD M IN Location: [place] [address] 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, Morbid obesity, PAF/Flutter, HTN, HLD, COPD w/ Chronic Hypoxic Respiratory Failure (3L-6L NC, she notes primarily 3.5 to 4 L at rest and up to 6 L with activity, uses similarly 3.5 to 4 L at bedtime also), Former tobacco use, ROXY not on PAP therapy, EtOH abuse recently cut back [facility] with history of increased dyspnea above her baseline with underlying history of chronic dyspnea worse with any exertion with no recent URItype illness or increased productive cough with onset of fever Saturday of with mild nasal congestion at that time prompting urgent care evaluation with also concern for urinary tract infection started on Macrobid however the urine culture resulted negative with PCP reevaluation in the office on day of presentation with heart rate at that time noted to be 129 prompting ED evaluation to be cautious. She also notes that recently following 1 dose of Macrobid she did have onset of diffuse patchy erythematous rash without significant pruritus or raised noted to be blanching which she thought was a reaction specifically given timeline. Workup in the ED included T99.3, heart rate 129, BP 133/96, respiratory rate 20, 90% on nasal cannula 3.5 L with most heart rate going down in the ED to 89 however most recent repeat vitals with heart rate 126, BP 156/92, respiratory rate 24, 94% on 3.5 L nasal cannula, CBC with WC 9.0, hemoglobin 12.7, platelet 285 with lymphopenia, BMP with chloride 96, carbon oxide 38, BUN/creatinine 14/0.65, GFR 97, glucose 110, troponin initial less than 6 with repeat delta less than 6, urinalysis with specific gravity 1.015, protein 30, ketones 50, occult blood negative, nitrate negative, leukocyte esterase 25 with urine WBCs 10-25 however urine squamous epithelial cells also noted to be 5-10 with 2+ urine bacteria, chest x-ray with cardiomegaly with mild congestion, CT brain with no acute intracranial finding with mild small vessel ischemic/degenerative changes, EKG PAFlutter w/ RVR. In the ED patient administered diltiazem 25 mg IV bolus x 1 and placed on a diltiazem drip. COUNTS INCLUDE 234 BEDS AT THE [facility] Medical History (Updated 04/23/25 @ 22:[address] Virginia Henriquez MD) Pulmonary nodule Atrial flutter Shortness of breath ROXY (obstructive sleep apnea) Leiomyoma of uterus Internal hemorrhoids with complication Hypertension Diverticulosis of colon Chronic hypoxemic respiratory failure Alcohol abuse Former smoker On home oxygen therapy Irregular heart beat Atrial fibrillation COPD (chronic obstructive pulmonary disease) Home Medications ?Medication ?Instructions ?Recorded ?Last Taken ?Type Oxygen, Home [Home Oxygen] 2 - 4 lpm QHS 11/13/1701/27 History albuterol sulfate 90 mcg/actuation 2 inh inhalation Q6 H PRN shortness 02/19/25 Unknown History breath activated powder inhaler of breath fluticasone fur. 200 mcg-umeclid 1 ea inhalation DAILY sob 02/19/25 02/19/25 History 62.5 mcg-vilant 25 mcg [...] BID PRN dry 02/19/25 Unknown History aerosol ([place] Saline) nasal passages triamcinolone acetonide 0.5 % 1 applic topical BID PRN itching 02/19/25 Unknown History topical cream apixaban 5 mg tablet (Eliquis) 5 mg PO BID blood thinn er #60 tabs 02/23/25 Unknown Rx furosemide 40 mg tablet 40 mg PO BID diuretic #60 ta bs 02/23/25 Unknown Rx metoprolol tartrate 50 mg tablet 50 mg PO BID blood pr essure #60 02/23/25 Unknown Rx tabs potassium chloride 20 mEq 20 meq PO BID supplement #60 tabs 02/23/25 Unknown Rx tablet,extended release(part/cryst) (Klor-Con M) ascorbic acid (vitamin C) 500 mg 500 mg PO DAILY PRN 0 03/30/25 Unknown History capsule cinnamon bark 500 mg capsule 500 mg PO QDAY 03/30/25 U nknown History (Cinnamon) mecobalamin (vitamin B12) 1,000 1,000 mcg PO QDAY 01/19 Unknown History mcg chewable tablet nitrofurantoin 1 cap PO BID uti 04/23/25 Un known History monohydrate/macrocrystals 100 mg capsule nystatin 100,000 unit/gram topical 1 applic topical BI D skin rash 04/23/25 Unknown History cream Allergy/AdvReac Type Severity Reaction Status Date / Time ibuprofen (From Advil) Allergy Mild Hives Verified 04/23/25 16:17 nitrofurantoin (From Allergy Rash Verified 04/23/25 22:06 Macrobid) Family History Father Cancer Mother COPD (chronic obstructive pulmonary disease) Alcoholism Grandmother Hypertension Thyroid disorder Surgical History History of surgery History of colonoscopy History of lumpectomy of right breast Hx of inguinal herniorrhaphy Social History (Updated 04/23/25 @ 22:[address] Virginia Henriquez MD) household members: none Smoking Status: Former smoker how long ago did patient quit smoking: Quit 15 years prior, smoked 1 pack/day since she been 16 until she quit. alcohol intake: current alcohol intake frequency: 0-2 drinks per day Alcohol type: hard liquor details: Hard liquor mixed drinks, previously heavier, down to 2 drinks daily. substance use type: does not use caffeine: Yes ROS ROS Narrative Admission Review of Systems: CONSTITUTIONAL: No weight loss, chills. + Weakness or fatigue, recent fevers. HEENT: + Congestion. Eyes: No visual loss, blurred vision, double vision or yellow sclerae. Ears, Nose, Throat: No hearing loss, sneezing, sore throat. SKIN: No lesions, wounds. + Recent rash following Macrobid initiation. CARDIOVASCULAR: No chest pain, chest pressure or chest discomfort, palpitations,edema, orthopnea, syncopal events. RESPIRATORY: + Dyspnea worse with exertion. No recent marked productive cough, increased wheezing, hemoptysis. GASTROINTESTINAL: No anorexia, nausea, vomiting or diarrhea, abdominal pain, melena, BRBPR. GENITOURINARY: No dysuria, frequency, urgency or retention. NEUROLOGICAL: No headache, dizziness, syncope, paralysis, ataxia, numbness or tingling in the extremities, focal weakness, change in bowel or bladder control,seizure. MUSCULOSKELETAL: + muscle, back pain, joint pain or stiffness. HEMATOLOGIC: No anemia. + Easy bleeding/bruising. LYMPHATICS: No enlarged nodes. No history of splenectomy. PSYCHIATRIC: No history of depression or anxiety. ENDOCRINOLOGIC: No reports of sweating, cold or heat intolerance. No polyuria orpolydipsia. ALLERGIES: No history of asthma, hives, eczema or rhinitis. Vital Signs Vital Signs Vital Signs: 04/23/25 16:18 04/23/25 16:50 04/23/25 16:50 Temperature 99.3 F H Temperature Source Oral Pulse Rate 129 H 125 H Respiratory Rate 20 H 16 Respiratory Effort Blood Pressure 133/96 H Blood Pressure Mean 108 Pulse Ox 90 93 Oxygen Delivery Method Nasal Cannula Nasal Cannula Nasal Cannula Oxygen Flow Rate (L/min) 3.5 3.5 04/23/25 16:50 04/23/25 17:21 04/23/25 18:00 Temperature Temperature Source Pulse Rate 104 H 89 Respiratory Rate 24 H 22 H Respiratory Effort Short of Breath Blood Pressure 133/76 H 163/80 H Blood Pressure Mean 95 107 Pulse Ox 94 95 Oxygen Delivery Method Nasal Cannula Nasal Cannula Oxygen Flow Rate (L/min) 4 04/23/25 19:14 04/23/25 20:05 04/23/25 20:15 Temperature Temperature Source Pulse Rate 94 104 H 96 Respiratory Rate 16 22 H 29 H Respiratory Effort Blood Pressure 133/76 H 185/116 H Blood Pressure Mean 95 133 Pulse Ox 93 91 100 Oxygen Delivery Method Oxygen Flow Rate (L/min) 04/23/25 20:30 04/23/25 20:45 04/23/25 21:00 Temperature Temperature Source Pulse Rate 114 H 93 126 H Respiratory Rate 25 H 32 H 24 H Respiratory Effort Blood Pressure 174/154 H 193/118 H 156/92 H Blood Pressure Mean 162 141 113 Pulse Ox 94 92 94 Oxygen Delivery Method Nasal Cannula Oxygen Flow Rate (L/min) 3.5 Weight Weight: 255 lb Body Mass Index (BMI) 43.7 Physical Exam Narrative Physical Examination: General: Awake, alert, oriented x 3 and cooperative, laying in the ED bed, fatigued otherwise no acute distress. Skin: Normal color, normal turgor, no icterus, no cyanosis except for occasionalstage ecchymoses, abrasion, diffuse patchy erythematous blanching rash on all extremities and thorax, nonpruritic and again noted to have onset following her initial doses of Macrobid. HEENT: AT/NC, EOMI, PERRLA, MMM, no carotid bruits, difficult to discern JVD given very thickened neck. Lungs: Mildly diminished, greater bases, mildly increased respiratory rate but no distress, no appreciated rales, ronchi or wheezing. Heart: Irregular irregular; no gallop, rub audible. Abdomen: Soft, morbidly obese, NTTP, distant BS, difficult to discern distentionand HSM given habitus. Extremities: No cyanosis, no clubbing, no marked distal pitting edema noted, seeskin for description of diffuse patchy rash. Neurological: Patient awake, alert, oriented as noted, cognitive function intact; pupils equally reactive to light and accommodation, cranial nerves grossly normal, moving all 4 extremities, no focal deficits, strength moderatelyglobally decreased. Psychiatric: Affect appears fatigued otherwise normal, no acute evidence of depressive or anxiety feelings. Results Lab / Micro Data 04/23/25 17:50 04/23/25 17:50 Labs: Laboratory Results - last 24 hr 04/23/25 17:50: WBC 9.0, RBC 4.07 L, Hgb 12.7, Hct 40.2, MCV 98.8, MCH 31.2, MCHC 31.6 L, RDW Std Deviation 51.3 H, RDW Coeff of Karly 14.2, Plt Count 285, MPV 10.4, Immature Gran % (Auto) 0.300, Neut % (Auto) 83.8 H, Lymph % (Auto) 7.9 L, [place] % (Auto) 6.6, Eos % (Auto) 0.8, Baso % (Auto) 0.6, Absolute Neuts (auto) 7.6, Absolute Lymphs (auto) 0.71 L, Nucleated RBC % 0, Sodium 145, Potassium 3.9, Chloride 96 L, Carbon Dioxide 38.0 H, Anion Gap 10, BUN 14, Creatinine 0.65L, Estim Creat Clear Calc 85.20, Est GFR (MDRD) Non-Af 97, BUN/Creatinine Ratio 22.2 H, Glucose 110 H, Calcium 9.6, Troponin T High Sens < 6 04/23/25 19:50: Urine Color Yellow, Urine Clarity Clear, Urine pH 6.0, Ur Specific [place] 1.015, Urine Protein 30 H, Urine Glucose (UA) Normal, Urine Ketones 50 H, Urine Occult Blood Negative, Urine Nitrite Negative, Urine Bilirubin 1 H, Urine Urobilinogen 1 H, Ur Leukocyte Esterase 25 H, Urine RBC 0 SEEN, Urine WBC 10-25 SEEN, Ur Squamous Epith Cells 5-10 SEEN, Urine Bacteria 2+, Urine Mucus 2+ 04/23/25 19:55: Troponin T Hi Sens 2 Hr < 6 Imaging Radiology Impression Chest X-Ray 04/23/25 17:37 IMPRESSION: Cardiomegaly with mild congestion. Reading Location: [facility] Brain CT 04/23/25 18:04 IMPRESSION: 1. No acute intracranial hemorrhage, midline shift or mass effect. If symptoms persist, further evaluation with MRI is recommended. 2. Mild small vessel ischemic/degenerative changes. 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, Morbid obesity, PAF/Flutter, HTN, HLD, COPD w/ Chronic Hypoxic Respiratory Failure (3L-6L NC), Former tobacco use, ROXY not on PAP therapy, EtOH abuse recently cutting back [facility]opresents to [facility] ED on 04[facility]23[facility]2025 with history of increaseddyspnea above her baseline with underlying history of chronic dyspnea worse withany exertion with no recent URI type illness or increased productive cough with onset of fever Saturday of 102 with mild nasal congestion at that time promptingurgent care evaluation with also concern for urinary tract infection started on Macrobid however the urine culture resulted negative with PCP reevaluation in the office on day of presentation with heart rate at that time noted to be 129 prompting ED evaluation to be cautious. #1. Acute dyspnea, progressively worsening secondary to likely #2 in addition to possible acute viral syndrome complicated by underlying chronic COPD with chronic hypoxic respiratory failure: Will admit to PCU given #2, will maintain on home oxygen supplementation, continue ATC budesonide especially given #2, PRNalbuterol only if absolutely necessary, encourage HOB, IS parameters, will obtain sputum Cx, respiratory viral panel, procalcitonin. #2. Paroxsymal atrial flutter w/ RVR with concern for possible associated mild overload as a result: EKG in ED w/ atrial flutter w/ RVR. Patient administered Cardizem bolus and eventually placed on a drip in ED. Will pulsed dose with Lasix 40 mg IV x 1, will maintain on telemetry, obtain cardiac enzyme serial set, obtain magnesium level, obtain TSH level. Most recent echocardiogram noted02/19/2025 with borderline LV systolic function with LVEF 45 to 50%, moderate global RV systolic dysfunction, mild biatrial dilatation, moderate MVI, mild TBI, RVSP 53 mmHg thus will defer repeating. Will continue Cardizem drip and home Eliquis regimen. Attempt transition once appropriate back to home BB therapy. If not responding may require Cardiology involvement. #3. Recent concern for UTI, complicated ruled out with possible Macrobid allergic reaction: Patient with evaluation on Saturday with concern for possibleUTI started on Macrobid however culture resulted negative per her report and shewas de- escalated off of Macrobid per her PCP. Discussed with nursing staff and will place Macrobid as a rash allergy. Discussed with patient we will continue to monitor. #4. EtOH Abuse, recently cutting back: She notes that her passed this last August and she did increase her alcohol not significantly but her ladle handler Dr. Elena did discuss this with her and she is now down to 2 alcoholic drinks daily however given the fact that she is a female a total of 14drinks weekly would be above the recommendation. To be cautious will maintain on CIWA protocol, MVI, thiamine and folic acid. #5. Hypertension: Continue home regimen including Lasix, metoprolol, IV Cardizem drip ongoing as noted with pulse IV Lasix 40 mg x 1 now, PRN hydralazine. #6. Hyperlipidemia: Noted history, not on regimen per current list, not listed as an allergy, FLP in AM. #7. Morbid Obesity: Weight loss and lifestyle changes encouraged. #8. History of VTE: Patient with history of DVT, PE, continue Eliquis home regimen. #9. Former tobacco use: Encourage continued tobacco cessation. #10. ROXY: Patient reports that she only uses supplemental oxygen, no PAP therapy. #11. DVT prophylaxis: Will continue patient on Eliquis regimen. #12. CODE status: Patient ARACELI is her daughter and living will is currently inplace. Discussed CODE status at length including difference between FULL code, DNR-CCA and DNR-CC status. Following discussions about the differences in these status, requested Full Code status. Advanced Care Planning Face to Face Time: 16minutes. Charges/Coding Visit Charges Inpatient E&M: 77663 Init Hosp L3 Procedures Hospitalists Procedures: 51113 Advncd Care Plan 30 Min 04/23/252214 <Electronically signed by Virginia Henriquez MD> Cosigner Signature (if applicable): CC: Dr. Virginia Henriquez MD; Dr. Phuc Martines, DO~ Signed [facility] Work Phone: [phone] Discharge summary [facility] Medical Records Department [address] [place] [address] Emergency Department Summary 04/23/25 MR#: [id number] Acct: [id number] Name: LISA LUCERO Rep #:[id number] : 1955 69 From: Cele LYNN PCP: Dr. Phuc Martines, DO Status:AD M IN Location: [place] [address] HPI History of Present Illness Chief Complaint: Palpitations Narrative Narrative: Patient presenting today after being seen in her PCPs office due to dyspnea. She has a history of A-fib/flutter on Eliquis, COPD on 3 to 6 L at baseline, andalcohol use. She reports that she has chronic dyspnea at baseline that has beenprogressively getting worse. She denies any recent illness or cough. She denies any history of blood clots and is compliant with her Eliquis. She had a fever of 102 ?F on Saturday. She was also experiencing some nasal congestion and went to urgent care, she was also concerned she could have had a UTI and wasstarted on Macrobid. She did have a urine culture thatcame back negative. Shesaw her PCP today in the office and was tachycardic with a heart rate around 129bpm, she was then encouraged to come in for evaluation. She denies chest pain, abdominal pain, nausea, and vomiting. [facility] Medical History Pulmonary nodule Atrial flutter Shortness of breath ROXY (obstructive sleep apnea) Leiomyoma of uterus Internal hemorrhoids with complication Hypertension Diverticulosis of colon Chronic hypoxemic respiratory failure Alcohol abuse Former smoker On home oxygen therapy Irregular heart beat Atrial fibrillation COPD (chronic obstructive pulmonary disease) Home Medications ?Medication ?Instructions ?Recorded ?Last Taken ?Type Oxygen, Home [Home Oxygen] 2 - 4 lpm QHS 11/13/17/02/19 History albuterol sulfate 90 mcg/actuation 2 inh inhalation [...] BID PRN dry 02/19/25 Unknown History aerosol ([place] Saline) nasal passages triamcinolone acetonide 0.5 % 1 applic topical BID PRN itching 02/19/25 Unknown History topical cream apixaban 5 mg tablet (Eliquis) 5 mg PO BID #60 tabs Unknown Rx furosemide 40 mg tablet 40 mg PO BID #60 tabs Unknown Rx metoprolol tartrate 50 mg tablet 50 mg PO BID #60 tabs 02/23/25 Unknown Rx potassium chloride 20 mEq 20 meq PO BID #60 tabs 02/23 Unknown Rx tablet,extended release(part/cryst) (Klor-Con M) ascorbic acid (vitamin C) 500 mg 500 mg PO DAILY PRN 0 03/30/25 Unknown History capsule cinnamon bark 500 mg capsule 500 mg PO QDAY 03/30/25 U nknown History (Cinnamon) mecobalamin (vitamin B12) 1,000 1,000 mcg PO QDAY 01/19 Unknown History mcg chewable tablet Allergy/AdvReac Type Severity Reaction Status Date / Time ibuprofen (From Advil) Allergy Mild Hives Verified 04/23/25 16:17 Family History Father Cancer Mother COPD (chronic obstructive pulmonary disease) Alcoholism Grandmother Hypertension Thyroid disorder Surgical History History of surgery History of colonoscopy History of lumpectomy of right breast Hx of inguinal herniorrhaphy Social History Smoking Status: Former smoker alcohol intake: current substance use type: does not use caffeine: Yes ROS ROS ED Constitutional Constitutional ED: Reports fever(s); Denies chills Cardiovascular Cardiovascular: Denies chest pain Respiratory/Chest Respiratory/Chest: Reports dyspnea on exertion; Denies cough Gastrointestinal Gastrointestinal: Denies abdominal pain, nausea or vomiting Musculoskeletal Musculoskeletal: Denies arthralgias or myalgias Integumentary Denies rash Neurologic Neurologic: Denies weakness EXAM Physical Exam Const Vital Signs: 04/23/25 16:18 04/23/25 16:50 04/23/25 16:50 Temperature 99.3 F H Temperature Source Oral Pulse Rate 129 H 125 H Respiratory Rate 20 H 16 Respiratory Effort Blood Pressure 133/96 H Blood Pressure Mean 108 Pulse Ox 90 93 Oxygen Delivery Method Nasal Cannula Nasal Cannula Nasal Cannula Oxygen Flow Rate (L/min) 3.5 3.5 04/23/25 16:50 04/23/25 17:21 04/23/25 18:00 Temperature Temperature Source Pulse Rate 104 H 89 Respiratory Rate 24 H 22 H Respiratory Effort Short of Breath Blood Pressure 133/76 H 163/80 H Blood Pressure Mean 95 107 Pulse Ox 94 95 Oxygen Delivery Method Nasal Cannula Nasal Cannula Oxygen Flow Rate (L/min) 4 04/23/25 19:14 04/23/25 20:05 04/23/25 20:15 Temperature Temperature Source Pulse Rate 94 104 H 96 Respiratory Rate 16 22 H 29 H Respiratory Effort Blood Pressure 133/76 H 185/116 H Blood Pressure Mean 95 133 Pulse Ox 93 91 100 Oxygen Delivery Method Oxygen Flow Rate (L/min) 04/23/25 20:30 04/23/25 20:45 04/23/25 21:00 Temperature Temperature Source Pulse Rate 114 H 93 126 H Respiratory Rate 25 H 32 H 24 H Respiratory Effort Blood Pressure 174/154 H 193/118 H 156/92 H Blood Pressure Mean 162 141 113 Pulse Ox 94 92 94 Oxygen Delivery Method Nasal Cannula Oxygen Flow Rate (L/min) 3.5 Positive well nourished, well developed and no apparent distress General Appearance ED: well developed HEENT Reports normocephalic and head/scalp atraumatic Mouth ED: Yes moist mucous membranes normal Eyes PERRL and EOMs intact bilaterally Neck full ROM and supple Chest Wall inspection of chest normal Resp normal respiratory effort and clear to auscultation bilaterally Cardio regular rate and regular rhythm GI soft to palpation, non-tender, non-distended and no masses Back/Spine normal ROM and normal to inspection Extremity normal to inspection and full ROM General Extremety ED: Negative for edema General Extremity: Negative for edema Neuro oriented x3, CN's II-XII intact bilaterally, moves all extremities, no focal motor deficits and no sensory deficits noted Sensorium / Orientation: awake and alert Psych mental status grossly normal and thought process normal Skin no rashes or lesions noted and no wounds Physical Exam Const Vital Signs: 04/23/25 16:18 04/23/25 16:50 04/23/25 16:50 Temperature 99.3 F H Temperature Source Oral Pulse Rate 129 H 125 H Respiratory Rate 20 H 16 Respiratory Effort Blood Pressure 133/96 H Blood Pressure Mean 108 Pulse Ox 90 93 Oxygen Delivery Method Nasal Cannula Nasal Cannula Nasal Cannula Oxygen Flow Rate (L/min) 3.5 3.5 04/23/25 16:50 04/23/25 17:21 04/23/25 18:00 Temperature Temperature Source Pulse Rate 104 H 89 Respiratory Rate 24 H 22 H Respiratory Effort Short of Breath Blood Pressure 133/76 H 163/80 H Blood Pressure Mean 95 107 Pulse Ox 94 95 Oxygen Delivery Method Nasal Cannula Nasal Cannula Oxygen Flow Rate (L/min) 4 04/23/25 19:14 04/23/25 20:05 04/23/25 20:15 Temperature Temperature Source Pulse Rate 94 104 H 96 Respiratory Rate 16 22 H 29 H Respiratory Effort Blood Pressure 133/76 H 185/116 H Blood Pressure Mean 95 133 Pulse Ox 93 91 100 Oxygen Delivery Method Oxygen Flow Rate (L/min) 04/23/25 20:30 04/23/25 20:45 04/23/25 21:00 Temperature Temperature Source Pulse Rate 114 H 93 126 H Respiratory Rate 25 H 32 H 24 H Respiratory Effort Blood Pressure 174/154 H 193/118 H 156/92 H Blood Pressure Mean 162 141 113 Pulse Ox 94 92 94 Oxygen Delivery Method Nasal Cannula Oxygen Flow Rate (L/min) 3.5 MDM MDM MDM Narrative Medical decision making narrative: Patient presenting today after being sent over by her PCPs office due to concerns for tachycardia. She has a history of A-fib/flutter on Eliquis. She is compliant with her medications. She has chronic dyspnea due to her history of COPD but has been feeling more dyspneic recently. She had a echo in 2022 that showed an EF of 60%. Cardiac labs obtained, her CBC and BMP are largely unremarkable, initial troponin unremarkable. Low suspicion for PE given she is on Eliquis. Chest x-ray shows cardiomegaly with mild congestion. Her O2 saturation has remained above 90% on her normal home O2. She was given IV Cardizem due to a heart rate of 129 bpm, repeat heart rate is 89 bpm. She did become tachycardic again with a heart rate around 129 bpm. On further questioning she did admit to daily alcohol use, she reports that she has about 2shots daily, she does not feel that she is going through alcohol withdrawal. She was placed on a Cardizem drip. She will be admitted to the hospital in stable condition. I have personally performed a face to face assessment of the patient and have reviewed the SACHI Note. I performed a substantive portion of the visit including all aspects of the following. My diaz findings include: History is 69-year-old female sent in due to accelerated heart rate history of recently diagnosed atrial flutter on beta-stefanie. Exam is [C 9-year-old female vital signs stable she is tachycardic 129 atrial flutter on the monitor. Temperature nine 9.3. H EENT exam pupils round react to light. Moist with membranes. Neck nontender no lymphadenopathy. Lungs clear to auscultation. Heart tachycardic 130 no murmur. Chest wall ribsnontender. Abdomen soft nontender. Moving all 4 extremities. Nontender. Neurologically patient awake alert. Answer questions following commands.] Medical Decision Making [patient with atrial flutter rapid rate. Treated with IV Cardizem. Screening labs being obtained. Due to a recent fever even though clinically she looks benign we checked a chest x-ray and a UA.] Other additions or changes: [None] Lab Data Attestation: I reviewed the patient's lab results. Labs: Laboratory Results - last 24 hr 04/23/25 04/23/25 04/23/25 17:50 19:50 19:55 WBC 9.0 RBC 4.07 L Hgb 12.7 Hct 40.2 MCV 98.8 MCH 31.2 MCHC 31.6 L RDW Std Deviation 51.3 H RDW Coeff of Karly 14.2 Plt Count 285 MPV 10.4 Immature Gran % (Auto) 0.300 Neut % (Auto) 83.8 H Lymph % (Auto) 7.9 L [place] % (Auto) 6.6 Eos % (Auto) 0.8 Baso % (Auto) 0.6 Absolute Neuts (auto) 7.6 Absolute Lymphs (auto) 0.71 L Nucleated RBC % 0 Sodium 145 Potassium 3.9 Chloride 96 L Carbon Dioxide 38.0 H Anion Gap 10 BUN 14 Creatinine 0.65 L Estim Creat Clear Calc 85.20 Est GFR (MDRD) Non-Af 97 BUN/Creatinine Ratio 22.2 H Glucose 110 H Calcium 9.6 Troponin T High Sens < 6 Troponin T Hi Sens 2 Hr < 6 Urine Color Yellow Urine Clarity Clear Urine pH 6.0 Ur Specific [place] 1.015 Urine Protein 30 H Urine Glucose (UA) Normal Urine Ketones 50 H Urine Occult Blood Negative Urine Nitrite Negative Urine Bilirubin 1 H Urine Urobilinogen 1 H Ur Leukocyte Esterase 25 H Urine RBC 0 SEEN Urine WBC 10-25 SEEN Ur Squamous Epith Cells 5-10 SEEN Urine Bacteria 2+ Urine Mucus 2+ Radiography X-Ray: Read by ED Physician Diagnostic Testing: Clinical Impression(s) from Imaging Studies Chest X-Ray 04/23/25 17:37 IMPRESSION: Cardiomegaly with mild congestion. Reading Location: [facility] Brain CT 04/23/25 18:04 IMPRESSION: 1. No acute intracranial hemorrhage, midline shift or mass effect. If symptoms persist, further evaluation with MRI is recommended. 2. Mild small vessel ischemic/degenerative changes. Reading Location: [facility] EKG Initial EKG: Comments: 129 bpm, atrial flutter, no ST elevation, interpreted by attending ED physician MDM MDM Narrative Medical decision making narrative: Patient presenting today after being sent over by her PCPs office due to concerns for tachycardia. She has a history of A-fib/flutter on Eliquis. She is compliant with her medications. She has chronic dyspnea due to her history of COPD but has been feeling more dyspneic recently. She had a echo in 2022 that showed an EF of 60%. Cardiac labs obtained, her CBC and BMP are largely unremarkable, initial troponin unremarkable. Chest x-ray shows cardiomegaly with mild congestion. Her O2 saturation has remained above 90% on her normal home O2. She was given IV Cardizem due to a heart rate of 129 bpm, repeat heart rate is 89 bpm. I have personally performed a face to face assessment of the patient and have reviewed the SACHI Note. I performed a substantive portion of the visit including all aspects of the following. My diaz findings include: History is 69-year-old female sent in due to accelerated heart rate history of recently diagnosed atrial flutter on beta-stefanie. Exam is [C 9-year-old female vital signs stable she is tachycardic 129 atrial flutter on the monitor. Temperature nine 9.3. H EENT exam pupils round react to light. Moist with membranes. Neck nontender no lymphadenopathy. Lungs clear to auscultation. Heart tachycardic 130 no murmur. Chest wall ribsnontender. Abdomen soft nontender. Moving all 4 extremities. Nontender. Neurologically patient awake alert. Answer questions following commands.] Medical Decision Making [patient with atrial flutter rapid rate. Treated with IV Cardizem. Screening labs being obtained. Due to a recent fever even though clinically she looks benign we checked a chest x-ray and a UA.] Other additions or changes: [None] History & Record Review Discussion w/independent historian: Patient and Family Additional record(s) reviewed:: Prior inpatient record, Prior outpatient record, Prior ED visit andPrior labs Lab Data Lab results narrative: CBC white count 9 H&H 12 and 40. Platelets 285. Electrolytes shows sodium 145. Gap 10. BUN and creatinine 14 and 0.6. Glucose 110. Troponin less than 6. Labs: Laboratory Results - last 24 hr 04/23/25 04/23/25 04/23/25 17:50 19:50 19:55 WBC 9.0 RBC 4.07 L Hgb 12.7 Hct 40.2 MCV 98.8 MCH 31.2 MCHC 31.6 L RDW Std Deviation 51.3 H RDW Coeff of Karly 14.2 Plt Count 285 MPV 10.4 Immature Gran % (Auto) 0.300 Neut % (Auto) 83.8 H Lymph % (Auto) 7.9 L [place] % (Auto) 6.6 Eos % (Auto) 0.8 Baso % (Auto) 0.6 Absolute Neuts (auto) 7.6 Absolute Lymphs (auto) 0.71 L Nucleated RBC % 0 Sodium 145 Potassium 3.9 Chloride 96 L Carbon Dioxide 38.0 H Anion Gap 10 BUN 14 Creatinine 0.65 L Estim Creat Clear Calc 85.20 Est GFR (MDRD) Non-Af 97 BUN/Creatinine Ratio 22.2 H Glucose 110 H Calcium 9.6 Troponin T High Sens < 6 Troponin T Hi Sens 2 Hr < 6 Urine Color Yellow Urine Clarity Clear Urine pH 6.0 Ur Specific [place] 1.015 Urine Protein 30 H Urine Glucose (UA) Normal Urine Ketones 50 H Urine Occult Blood Negative Urine Nitrite Negative Urine Bilirubin 1 H Urine Urobilinogen 1 H Ur Leukocyte Esterase 25 H Urine RBC 0 SEEN Urine WBC 10-25 SEEN Ur Squamous Epith Cells 5-10 SEEN Urine Bacteria 2+ Urine Mucus 2+ Radiography Diagnostic Testing: Clinical Impression(s) from Imaging Studies Chest X-Ray 04/23/25 17:37 IMPRESSION: Cardiomegaly with mild congestion. Reading Location: [facility] Brain CT 04/23/25 18:04 IMPRESSION: 1. No acute intracranial hemorrhage, midline shift or mass effect. If symptoms persist, further evaluation with MRI is recommended. 2. Mild small vessel ischemic/degenerative changes. Reading Location: [facility] Discharge Plan Triage Chief Complaint: Palpitations ED Midlevel Provider: Cele Morgan ED Provider: Clay Hager Dx/Rx/DC Orders Clinical Impression: Shortness of breath, On home oxygen therapy, Alcohol abuse, Hypertension, COPD (chronic obstructivepulmonary disease), Atrial flutter Prescriptions: No Action cinnamon bark [Cinnamon] 500 mg capsule 500 mg PO QDAY mecobalamin (vitamin B12) 1,000 mcg tablet,chewable 1,000 mcg PO QDAY Oxygen, Home [Home Oxygen] 2 - 4 lpm NASAL QHS ascorbic acid (vitamin C) 500 mg capsule 500 mg PO DAILY PRN albuterol sulfate 90 mcg/actuation aerosol powdr breath activated 2 inh inhalation Q6H PRN (Reason: shortness of breath) Trelegy Ellipta 200-62.5-25 mcg blister with device 1 ea inhalation DAILY triamcinolone acetonide 0.5 % cream 1 applic topical BID PRN (Reason: itching) ipratropium-albuterol 0.5 mg-3 mg(2.5 mg base)/3 mL solution for nebulization 3 ml inhalation Q6H PRN (Reason: shortness of breath) multivitamin [Daily Multi-Vitamin] Tablet 1 tab PO DAILY [place] Saline 0.65 % aerosol,spray 1 spray intranasal BID PRN (Reason: dry nasal passages) guaifenesin [Mucus Relief ER] 1,200 MG tablet 1,200 mg PO BID PRN (Reason: cough) metoprolol tartrate 50 mg Tablet 50 mg PO BID Qty: 60 2RF furosemide 40 mg tablet 40 mg PO BID Qty: 60 2RF potassium chloride [Klor-Con M20] 20 mEq tablet,ER particles/crystals 20 meq PO BID Qty: 60 2RF Eliquis 5 mg Tablet 5 mg PO BID Qty: 60 2RF Primary Care Provider: Phuc Martines Referrals: Phuc Martines DO [Primary Care Provider] - Print Language: Nicaraguan Disposition Disposition: Acute Care Hospital [facility] What to do if you have Problems For any increased pain, shortness of breath, bleeding, nausea or vomiting, chestpain, or any unexpected problems, contact your Primary Care Provider. Call [facility] ([phone]) or report tothe closest Emergency Room. Call 911 if necessary. 04/23/252151 Cosigner Signature (if applicable): 04/24/25 0000 CC: Dr. Phuc Martines DO ~ Signed [facility]06-27-2025 History and physical note [facility] Medical Records Department [address] [place] [address] H&P Exam - Hospitalist 04/23/252148 MR#: [id number] Acct: [id number] Name: LISA LUCERO Rep #:[id number] 14 : 1955 69 From: Virginia Henriquez MD PCP: Dr. 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, Morbid obesity, PAF/Flutter, HTN, HLD, COPD w/ Chronic Hypoxic Respiratory Failure (3L-6L NC, she notes primarily 3.5 to 4 L at rest and up to 6 L with activity, uses similarly 3.5 to 4 L at bedtime also), Former tobacco use, ROXY not on PAP therapy, EtOH abuse recently cut back who [facility] with history of increased dyspnea above her baseline with underlying history of chronic dyspnea worse with any exertion with no recent URItype illness or increased productive cough with onset of fever Saturday of 102 with mild nasal congestion at that time prompting urgent care evaluation with also concern for urinary tract infection started on Macrobid however the urine culture resulted negative with PCP reevaluation in the office on day of presentation with heart rate at that time noted to be 129 prompting ED evaluation to be cautious. She also notes that recently following 1 dose of Macrobid she did have onset of diffuse patchy erythematous rash without significant pruritus or raised noted to be blanching which she thought was a reaction specifically given timeline. Workup in the ED included T99.3, heart rate 129, BP 133/96, respiratory rate 20, 90% on nasal cannula 3.5 L with most h eart rate going down in the ED to 89 however most recent repeat vitals with heart rate 126, BP 156/92, respiratory rate 24, 94% on 3.5 L nasal cannula, CBC with WC 9.0, hemoglobin 12.7, platelet 285 with lymphopenia, BMP with chloride 96, carbon oxide 38, BUN/creatinine 14/0.65, GFR 97, glucose 110, troponin initial less than 6 with repeat delta less than 6, urinalysis with specific gravity 1.015, protein 30, ketones 50, occult blood negative, nitrate negative, leukocyte esterase 25 with urine WBCs 10-25 however urine squamous epithelial cells also noted to be 5-10 with 2+ urine bacteria, chest x-ray with cardiomegaly with mild congestion, CT brain with no acute intracranial finding with mild small vessel ischemic/degenerative changes, EKG PAFlutter w/ RVR. In the ED patient administered diltiazem 25 mg IV bolus x 1 and placed on a diltiazem drip. COUNTS INCLUDE 234 BEDS AT THE [facility] Medical History (Updated 04/23/25 @ 22:[address] Virginia Henriquez MD) Pulmonary nodule Atrial flutter Shortness of breath ROXY (obstructive sleep apnea) Leiomyoma of uterus Internal hemorrhoids with complication Hypertension Diverticulosis of colon Chronic hypoxemic respiratory failure Alcohol abuse Former smoker On home oxygen therapy Irregular heart beat Atrial fibrillation COPD (chronic obstructive pulmonary disease) Home Medications ?Medication ?Instructions ?Recorded ?Last Taken ?Type Oxygen, Home [Home Oxygen] 2 - 4 lpm QHS 11/13/1701/27 History albuterol sulfate 90 mcg/actuation 2 inh inhalation Q6 H PRN shortness 02/19/25 Unknown History breath activated powder inhaler of breath fluticasone fur. 200 mcg-umeclid 1 ea inhalation DAILY sob 02/19/25 02/19/25 History 62.5 mcg-vilant 25 mcg [...] BID PRN dry 02/19/25 Unknown History aerosol ([place] Saline) nasal passages triamcinolone acetonide 0.5 % 1 applic topical BID PRN itching 02/19/25 Unknown History topical cream apixaban 5 mg tablet (Eliquis) 5 mg PO BID blood thinn er #60 tabs 02/23/25 Unknown Rx furosemide 40 mg tablet 40 mg PO BID diuretic #60 ta bs 02/23/25 Unknown Rx metoprolol tartrate 50 mg tablet 50 mg PO BID blood pr essure #60 02/23/25 Unknown Rx tabs potassium chloride 20 mEq 20 meq PO BID supplement #60 tabs 02/23/25 Unknown Rx tablet,extended release(part/cryst) (Klor-Con M) ascorbic acid (vitamin C) 500 mg 500 mg PO DAILY PRN 0 03/30/25 Unknown History capsule cinnamon bark 500 mg capsule 500 mg PO QDAY 03/30/25 U nknown History (Cinnamon) mecobalamin (vitamin B12) 1,000 1,000 mcg PO QDAY 01/19 Unknown History mcg chewable tablet nitrofurantoin 1 cap PO BID uti 04/23/25 Un known History monohydrate/macrocrystals 100 mg capsule nystatin 100,000 unit/gram topical 1 applic topical BI D skin rash 04/23/25 Unknown History cream Allergy/AdvReac Type Severity Reaction Status Date / Time ibuprofen (From Advil) Allergy Mild Hives Verified 04/23/25 16:17 nitrofurantoin (From Allergy Rash Verified 04/23/25 22:06 Macrobid) Family History Father Cancer Mother COPD (chronic obstructive pulmonary disease) Alcoholism Grandmother Hypertension Thyroid disorder Surgical History History of surgery History of colonoscopy History of lumpectomy of right breast Hx of inguinal herniorrhaphy Social History (Updated 04/23/25 @ 22:[address] Virginia Henriquez MD) household members: none Smoking Status: Former smoker how long ago did patient quit smoking: Quit 15 years prior, smoked 1 pack/day since she been 16 until she quit. alcohol intake: current alcohol intake frequency: 0-2 drinks per day Alcohol type: hard liquor details: Hard liquor mixed drinks, previously heavier, down to 2 drinks daily. substance use type: does not use caffeine: Yes ROS ROS Narrative Admission Review of Systems: CONSTITUTIONAL: No weight loss, chills. + Weakness or fatigue, recent fevers. HEENT: + Congestion. Eyes: No visual loss, blurred vision, double vision or yellow sclerae. Ears, Nose, Throat: No hearing loss, sneezing, sore throat. SKIN: No lesions, wounds. + Recent rash following Macrobid initiation. CARDIOVASCULAR: No chest pain, chest pressure or chest discomfort, palpitations,edema, orthopnea, syncopal events. RESPIRATORY: + Dyspnea worse with exertion. No recent marked productive cough, increased wheezing, hemoptysis. GASTROINTESTINAL: No anorexia, nausea, vomiting or diarrhea, abdominal pain, melena, BRBPR. GENITOURINARY: No dysuria, frequency, urgency or retention. NEUROLOGICAL: No headache, dizziness, syncope, paralysis, ataxia, numbness or tingling in the extremities, focal weakness, change in bowel or bladder control,seizure. MUSCULOSKELETAL: + muscle, back pain, joint pain or stiffness. HEMATOLOGIC: No anemia. + Easy bleeding/bruising. LYMPHATICS: No enlarged nodes. No history of splenectomy. PSYCHIATRIC: No history of depression or anxiety. ENDOCRINOLOGIC: No reports of sweating, cold or heat intolerance. No polyuria orpolydipsia. ALLERGIES: No history of asthma, hives, eczema or rhinitis. Vital Signs Vital Signs Vital Signs: 04/23/25 16:18 04/23/25 16:50 04/23/25 16:50 Temperature 99.3 F H Temperature Source Oral Pulse Rate 129 H 125 H Respiratory Rate 20 H 16 Respiratory Effort Blood Pressure 133/96 H Blood Pressure Mean 108 Pulse Ox 90 93 Oxygen Delivery Method Nasal Cannula Nasal Cannula Nasal Cannula Oxygen Flow Rate (L/min) 3.5 3.5 04/23/25 16:50 04/23/25 17:21 04/23/25 18:00 Temperature Temperature Source Pulse Rate 104 H 89 Respiratory Rate 24 H 22 H Respiratory Effort Short of Breath Blood Pressure 133/76 H 163/80 H Blood Pressure Mean 95 107 Pulse Ox 94 95 Oxygen Delivery Method Nasal Cannula Nasal Cannula Oxygen Flow Rate (L/min) 4 04/23/25 19:14 04/23/25 20:05 04/23/25 20:15 Temperature Temperature Source Pulse Rate 94 104 H 96 Respiratory Rate 16 22 H 29 H Respiratory Effort Blood Pressure 133/76 H 185/116 H Blood Pressure Mean 95 133 Pulse Ox 93 91 100 Oxygen Delivery Method Oxygen Flow Rate (L/min) 04/23/25 20:30 04/23/25 20:45 04/23/25 21:00 Temperature Temperature Source Pulse Rate 114 H 93 126 H Respiratory Rate 25 H 32 H 24 H Respiratory Effort Blood Pressure 174/154 H 193/118 H 156/92 H Blood Pressure Mean 162 141 113 Pulse Ox 94 92 94 Oxygen Delivery Method Nasal Cannula Oxygen Flow Rate (L/min) 3.5 Weight Weight: 255 lb Body Mass Index (BMI) 43.7 Physical Exam Narrative Physical Examination: General: Awake, alert, oriented x 3 and cooperative, laying in the ED bed, fatigued otherwise no acute distress. Skin: Normal color, normal turgor, no icterus, no cyanosis except for occasionalstage ecchymoses, abrasion, diffuse patchy erythematous blanching rash on all extremities and thorax, nonpruritic and again noted to have onset following her initial doses of Macrobid. HEENT: AT/NC, EOMI, PERRLA, MMM, no carotid bruits, difficult to discern JVD given very thickened neck. Lungs: Mildly diminished, greater bases, mildly increased respiratory rate but no distress, no appreciated rales, ronchi or wheezing. Heart: Irregular irregular; no gallop, rub audible. Abdomen: Soft, morbidly obese, NTTP, distant BS, difficult to discern distentionand HSM given habitus. Extremities: No cyanosis, no clubbing, no marked distal pitting edema noted, seeskin for description of diffuse patchy rash. Neurological: Patient awake, alert, oriented as noted, cognitive function intact; pupils equally reactive to light and accommodation, cranial nerves grossly normal, moving all 4 extremities, no focaldeficits, strength moderatelyglobally decreased. Psychiatric: Affect appears fatigued otherwise normal, no acute evidence of depressive or anxiety feelings. Results Lab / Micro Data 04/23/25 17:50 04/23/25 17:50 Labs: Laboratory Results - last 24 hr 04/23/25 17:50: WBC 9.0, RBC 4.07 L, Hgb 12.7, Hct 40.2, MCV 98.8, MCH 31.2, MCHC 31.6 L, RDW Std Deviation 51.3 H, RDW Coeff of Karly 14.2, Plt Count 285, MPV 10.4, Immature Gran % (Auto) 0.300, Neut % (Auto) 83.8 H, Lymph % (Auto) 7.9 L, [place] % (Auto) 6.6, Eos % (Auto) 0.8, Baso % (Auto) 0.6, Absolute Neuts (auto) 7.6, Absolute Lymphs (auto) 0.71 L, Nucleated RBC % 0, Sodium 145, Potassium 3.9, Chloride 96 L, Carbon Dioxide 38.0 H, Anion Gap 10, BUN 14, Creatinine 0.65L, Estim Creat Clear Calc 85.20, Est GFR (MDRD) Non-Af 97, BUN/Creatinine Ratio 22.2 H, Glucose 110 H, Calcium 9.6, Troponin THigh Sens < 6 04/23/25 19:50: Urine Color Yellow, Urine Clarity Clear, Urine pH 6.0, Ur Specific [place] 1.015, Urine Protein 30 H, Urine Glucose (UA) Normal, Urine Ketones 50 H, Urine Occult Blood Negative, UrineNitrite Negative, Urine Bilirubin 1 H, Urine Urobilinogen 1 H, Ur Leukocyte Esterase 25 H, Urine RBC 0 SEEN, Urine WBC 10-25 SEEN, Ur Squamous Epith Cells 5-10 SEEN, Urine Bacteria 2+, Urine Mucus 2+ 04/23/25 19:55: Troponin T Hi Sens 2 Hr < 6 Imaging Radiology Impression Chest X-Ray 04/23/25 17:37 IMPRESSION: Cardiomegaly with mild congestion. Reading Location: [facility] Brain CT 04/23/25 18:04 IMPRESSION: 1. No acute intracranial hemorrhage, midline shift or mass effect. If symptoms persist, further evaluation with MRI is recommended. 2. Mild small vessel ischemic/degenerative changes. 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, Morbid obesity, PAF/Flutter, HTN, HLD, COPD w/ Chronic Hypoxic Respiratory Failure (3L-6L NC), Former tobacco use, ROXY not on PAP therapy, EtOH abuse recently cutting back whopresents to [facility] ED [facility] 04[facility]23[facility]25 with history of increaseddyspnea above her baseline with underlying history of chronic dyspnea worse withany exertion with no recent URI type illness or increased productive cough with onset of fever Saturday of 102 with mild nasal congestion at that time promptingurgent care evaluation with also concernfor urinary tract infection started on Macrobid however the urine culture resulted negative with PCP reevaluation in the office on day of presentation with heart rate at that time noted to be 129 prompting ED evaluation to be cautious. #1. Acute dyspnea, progressively worsening secondary to likely #2 in addition to possible acute viral syndrome complicated by underlying chronic COPD with chronic hypoxic respiratory failure: Will admit to PCU given #2, will maintain on home oxygen supplementation, continue ATC budesonide especially given #2, PRNalbuterol only if absolutely necessary, encourage HOB, IS parameters, will obtain sputum Cx, respiratory viral panel, procalcitonin. #2. Paroxsymal atrial flutter w/ RVR with concern for possible associated mild overload as a result: EKG in ED w/ atrial flutter w/ RVR. Patient administered Cardizem bolus and eventually placed on adrip in ED. Will pulsed dose with Lasix 40 mg IV x 1, will maintain on telemetry, obtain cardiac enzyme serial set, obtain magnesium level, obtain TSH level. Most recent echocardiogram noted02/19/2025with borderline LV systolic function with LVEF 45 to 50%, moderate global RV systolic dysfunction, mild biatrial dilatation, moderate MVI, mild TBI, RVSP 53 mmHg thus will defer repeating. Will continue Cardizem drip and home Eliquis regimen. Attempt transition once appropriate back to home MICHELLE reardon. If not responding may require Cardiology involvement. #3. Recent concern for UTI, complicated ruled out with possible Macrobid allergic reaction: Patientwith evaluation on Saturday with concern for possibleUTI started on Macrobid however culture resulted negative per her report and shewas de-escalated off of Macrobid per her PCP. Discussed with nursing staff and will place Macrobid as a rash allergy. Discussed with patient we will continue to monitor. #4. EtOH Abuse, recently cutting back: She notes that her passed this last August and shedid increase her alcohol not significantly but her ladle handler Dr. Elena did discuss this with her and she is now down to 2 alcoholic drinks daily however given the fact that she is a female a total of 14drinks weekly would be above the recommendation. To be cautious will maintain on CIWA protocol, MVI, thiamine and folic acid. #5. Hypertension: Continue home regimen including Lasix, metoprolol, IV Cardizem drip ongoing as noted with pulse IV Lasix 40 mg x 1 now, PRN hydralazine. #6. Hyperlipidemia: Noted history, not on regimen per current list, not listed as an allergy, FLP in AM. #7. Morbid Obesity: Weight loss and lifestyle changes encouraged. #8. History of VTE: Patient with history of DVT, PE, continue Eliquis home regimen. #9. Former tobacco use: Encourage continued tobacco cessation. #10. ROXY: Patient reports that she only uses supplemental oxygen, no PAP therapy. #11. DVT prophylaxis: Will continue patient on Eliquis regimen. #12. CODE status: Patient ARACELI is her daughter and living will is currently inplace. Discussed CODE status at length including difference between FULL code, DNR-CCA and DNR-CC status. Following discussions about the differences in these status, requested Full Code status. Advanced Care Planning Face to Face Time: 16minutes. Charges/Coding Visit Charges Inpatient E&M: 62996 Init Hosp L3 Procedures Hospitalists Procedures: 89843 Advncd Care Plan 30 Min 04/23/252214 Cosigner Signature (if applicable): CC: Dr. Virginia Herniquez MD; Dr. Phuc Martines DO~ Signed [facility]06-27-2025 Radiology Diagnostic study note [facility] Imaging Services [address], [place] [id number] Brain/Head without Contrast MR#: [id number] Acct: [id number] Name: LISA LUCERO Rep #: [id number] : 1955 F 69 From: Bev Drummond MD PCP: Dr. Phuc Martines DO Status: RE G ER Study:Brain/Head without Contrast Date of Exa m: 04/23/25 Exam# [id number] Ordering Dr: Krishan Hager MD EXAM: CT Head Without Intravenous Contrast CLINICAL INDICATION: HEADACHE ON ELIQUIS TECHNIQUE: Axial computed tomography images of the head/brain without intravenous contrast. This CTexam was performed using one or more of the following dose reduction techniques: automated exposure control, adjustment of the mA and/or kV according to patient size, and/or use of iterative reconstruction technique. COMPARISON: No relevant prior studies available. FINDINGS: BRAIN AND EXTRA-AXIAL SPACES: The cerebral and cerebellar sulci are mildly prominent consistent with mild brain atrophy. No acute intracranial hemorrhage, midline shift or mass effect. If symptoms persist, further evaluation with MRI is recommended. Mild areas of decreased attenuation in the deep cerebral white matter are consistent with mild small vessel ischemic/degenerative changes. BONES/JOINTS: Unremarkable. No acute fracture. SOFT TISSUES: Unremarkable. SINUSES: Unremarkable as visualized. No acute sinusitis. MASTOID AIR CELLS: Unremarkable as visualized. No mastoid effusion. CT/Brain/Head without Contrast IMPRESSION: 1. No acute intracranial hemorrhage, midline shift or mass effect. If symptoms persist, further evaluation with MRI is recommended. 2. Mild small vessel ischemic/degenerative changes. Reading Location: [facility] CC: Dr. Clay Hager MD; Dr. Phuc Martines DO ~ Piano Case Maker: Signed [facility]06-27-2025 Radiology Diagnostic study note [facility] Imaging Services [address] [place] [address] [id number] Chest PA and Lateral MR#: [id number] Acct: [id number] Name: LISA LUCERO Rep #: [id number] : 1955 F 69 From: Bev Drummond MD PCP: Dr. Phuc Martines DO Status: RE G ER Study:Chest PA and Lateral Date of Exam: 04/23/25 Exam# [id number] Ordering Dr: Cele Garcia EXAM: XR Chest, 2 Views CLINICAL INDICATION: SOB TECHNIQUE: Frontal and lateral views of the chest. COMPARISON: No relevant prior studies available. FINDINGS: LUNGS AND PLEURAL SPACES: See below. HEART: Cardiomegaly with mild congestion. MEDIASTINUM: Unremarkable. Normal mediastinal contour. BONES/JOINTS: Unremarkable. No acute fracture. RAD/Chest PA and Lateral IMPRESSION: Cardiomegaly with mild congestion. Reading Location: [facility] CC: Dr. Phuc Martines DO; LEAH Cooley ~ Piano Case Maker: Signed [facility]06-27-2025 Instructions* Patient Instructions* Terrie Carson APRN.CNP - 04/23/2025 3:31 PM EDT Sent patient to ER documented in this encounterAdams [facility]06-27-2025 NoteHNO ID: [id number] Author: TERRIE CARSON APRN.CNP Service: ? Author Type: Nurse Practitioner Type: Progress Notes Filed: 04/23/2025 16:30 Note Text: This is a 69 year old female [...] week for further evaluation. and Recording using CyberDefender software for draft documentation of the visit was discussed with the patient/authorized human resources hr representative; all questions welcomed and answered. Patient/authorized human resources hr representative agreed to proceed HISTORY OF PRESENT ILLNESS: Linwood was in the hospital in January for new onset of atrial flutter. She was initiated on eliquis and metoprolol and now being seen by cardiology. She was referred to a [facility] cardio electro doc and is in the [...] failure (HCC) COPD (chronic obstructive pulmonary disease) ([facility]) 02/03/2010 Coronary artery disease No SD, CHF. No heart cath. Diverticulosis of colon [...] Current Outpatient Medications Medication Sig nitrofurantoin monohydrate a (more content not included)...[facility]06-27-2025 History of Present illness Narrative* Terrie Carson, JAKI.NEWSSTAND VENDOR - 04/23/2025 2:49 PM EDT This is a 69 year old female [...] 93% after supplemental oxygen; low oxygen levels maycontribute to confusion. - Scheduled an expedited follow-up appointment with primary care this week for further evaluation. and Recording using CyberDefender software for draft documentation of the visit was discussed with thepatient/authorized human resources hr representative; all questions welcomed and answered. Patient/authorized human resources hr representative agreed to proceed HISTORY OF PRESENT ILLNESS: Linwood was in the hospital in January for new onset of atrial flutter. She was initiated on eliquis and metoprolol and now being seen by cardiology. She was referred to a [facility] cardio electro doc and [place] the process of setting up to have [...] failure (HCC) COPD (chronic obstructive pulmonary disease) ([facility]) 02/03/2010 Coronary artery disease No SD, CHF. No heart cath. Diverticulosis of colon [...] hours as needed for wheezing/shortness of breath. qesvluypdwe-tzgstcqxk-abpsvuim (TRELEGY ELLIPTA) 200-62.5-25 mcg inhalation powder Inhale 1 Puff asinstructed once daily. triamcinolone acetonide (KENALOG) 0.5 % [...] her presentation/symptoms/assessment , she was sent to [facility] ER for further evaluation. Her daughter was coming to pick her up. Report was called to [facility] ER physician/hospitalist. Discussed treatment plan and patient voices understanding. Patient's questions answered appropriately. Medications and potential side effects were discussed and patient voices understanding. Medical Decision Making: Problems: High: Chronic illness with severe change Risk: High: Decision on hospitalization Medical Decision Making Level: 5 - High Return to the office as scheduled or as needed for worsening/no improvement. Terrie Carson APRN.NEWSSTAND VENDOR Recording using CyberDefender software for draft documentation of the visit was discussed with the patient/authorized human resources hr representative; all questions welcomed and answered. Patient/authorized human resources hr representative agreed to proceed documented in this encounterAdams [facility] Hospital06-26-2025 Telephone encounter Note * Telephone Encounter - Sandra Landis MA - 04/22/2025 8:29 AM EDT Pt was notified of the results. Pt verbalized understanding. Sandra Landis MA [facility]06-26-2025 Miscellaneous Notes* Telephone Encounter - Sandra Landis MA - 04/22/2025 8:29 AM EDT Pt was notified of the results. Pt verbalized understanding. Sandra Landis MA * Telephone Encounter - Anais Lee PA - 04/22/2025 7:11 AM EDT Please contact patient let her know urine culture reveals no UTI. It did reveal mixed bacteria which may drink a contamination during collection. She needs follow-up with PCP to ensure resolution of blood in the urine. She may continue antibiotic as prescribed if it is helping with symptoms. documented in this encounterAdams [facility] Hospital06-26-2025 Telephone encounter Note * Telephone Encounter - Anais Lee PA - 04/22/2025 7:11 AM EDT Please contact patient let her know urine culture reveals no UTI. It did reveal mixed bacteria which may drink a contamination during collection. She needs follow-up with PCP to ensure resolution of blood in the urine. She may continue antibiotic as prescribed if it is helping with symptoms. [facility] Work Phone: [phone]) [phone] Note* Addendum Note - Brandan Chang LPN - 04/20/2025 11:12 AM EDTAddended by: BRANDAN CHANG on: 04/20/2025 11:12 AM Modules accepted: Orders [facility]06-24-20[facility] Miscellaneous Notes* Addendum Note - Brandan Chang LPN - 04/20/2025 11:12 AM EDTAddended by: BRANDAN CHANG on: 04/20/2025 11:12 AM Modules accepted: Orders documented in this encounterAdams County Hospital06-24-2025 NoteHNO ID: [id number] Author: DAMON EUGENE APRN.NEWSSTAND VENDOR Service: ? Author Type: Nurse Practitioner Type: [...] week for further evaluation. and Recording using CyberDefender software for draft documentation of the visit was discussed with the patient/authorized human resources hr representative; all questions welcomed and answered. Patient/authorized human resources hr representative agreed to proceed [facility] Procedures[facility]06-[facility] History of Present illness Narrative* Damon Eugene APRN.[facility] - 04/20/2025 10:23 AM EDT [facility] Subjective Lias Lucero is a 69 year old female. [...] 93% after supplemental oxygen; low oxygen levels maycontribute to confusion. - Scheduled an expedited follow-up appointment with primary care this week for further evaluation. and Recording using ambient AI software for draft documentation of the visit was discussed with thepatient/authorized human resources hr representative; all questions welcomed and answered. Patient/authorized human resources hr representative agreed to proceed MDM Procedures documented in this encounterAdams County Hospital06-04-2025 NoteHNO ID: [id number] Author: JANETTE DAMON APRN.ELVIA Service: ? Author Type: Nurse Practitioner Type: Progress Notes Filed: 03/31/2025 13:06 Note Text: 03/31/2025 Patient presents with: BP Check: Had appointment with cardiology yesterday; [facility] Dr. Elena Recording using CyberDefender software for draft documentation of the visit was discussed with the patient/authorized human resources hr representative; all questions welcomed and answered. Patient/authorized human resources hr representative agreed to proceed SUBJECTIVE: This is a 69 year old that is here today for Above Complaints.. Atrial Flutter: - Recent consultation with Dr. Elena, who referred her to Dr. Marcos Santos, an section gang, for potential ablation. - Dr. Elena indicated [...] Atrial flutter (HCC) CHF (congestive heart failure) ([facility]) Chronic hypoxemic respiratory failure ([facility]) COPD (chronic obstructive pulmonary disease) ([facility]) 02/03/2010 Coronary artery disease No SD, CHF. No heart cath. Diverticulosis of colon [...] hours as needed for wheezing/shortness of breath. xlmclbguzbd-icswoskwe-lkdzeykn (TRELEGY ELLIPTA) 200-62.5-25 mcg inhalation powder Inhale [...] 03/01/2026 Diabetes Screening du (more content not included)...[facility] 03-31-2025 History of Present illness Narrative* JaklogJanette durant APRN.NEWSSTAND VENDOR - 03/31/2025 12:50 PM EDT 03/31/2025 Patient presents with: BP Check: Had appointment with cardiology yesterday; MANI Elena Recording using ambient [employer] software for draft documentation of the visit was discussed with the patient/authorized human resources hr representative; all questions welcomed and answered. Patient/authorized human resources hr representative agreed to proceed SUBJECTIVE: This is a 69 year old that is here today for Above Complaints.. Atrial Flutter: - Recent consultation with Dr. Elena, who referred her to Dr. Marcos Santos, an section gang, for potential ablation. - Dr. Elena indicated [...] Atrial flutter (HCC) CHF (congestive heart failure) ([facility]) Chronic hypoxemic respiratory failure ([facility]) COPD (chronic obstructive pulmonary disease) ([facility]) 02/03/2010 Coronary artery disease No SD, CHF. No heart cath. Diverticulosis of colon [...] hours as needed for wheezing/shortness of breath. bgismgqxdkx-phszdgshe-fkkghrhb (TRELEGY ELLIPTA) 200-62.5-25 mcg inhalation powder Inhale 1 Puff asinstructed once daily. triamcinolone acetonide (KENALOG) 0.5 % [...] (I48.92) - Referral to Dr. Marcos Santos, section gang, for potential ablation procedure. - Patient understands the procedure may improve cardiac function and respiratory status. - Upcoming sleep test ordered by Pulmonology; patient considering cancellation due to previous experience and cost concerns. Advised to inform Pulmonology if decision to cancel is made. - Follow-up with Pulmonology scheduled in May. Janette Damon APRN.CNP Prescription instructions reviewed with patient as applicable. [...] Level: 3 - Low documented in this encounterAdams County Hospital05-14-2025 Instructions* Patient Instructions* Lisa Goodman APRN.CNP - 03/10/2025 1:34 PM EDT [phone] [facility] sleep disorders, [place]. documented in this encounterAdams County Hospital05-14-2025 History of Present illness Narrative* Click, Lisa DesouzaJAKI.NEWSSTAND VENDOR - 03/10/2025 1:00 PM EDT Images from the original note were not included. Pulmonary Medicine Patients name: Lisa Palumbo PCP: Phuc Martines DO CC: concern for ROXY HPI: Lisa Lucero is a 69 year old female former 31-kjwy-cvji smoker, quitting in 2008 with PMH significant [...] that time. She was just hospitalized at [facility] 02/19 - 02/23 for SOB/leg swelling in [...] hours during testing. Reportedly, there were no apneaevents during the recorded time. Overall, she reports [...] failure (HCC) COPD (chronic obstructive pulmonary disease) ([facility]) 02/03/2010 Coronary artery disease No SD, CHF. No heart cath. Diverticulosis of colon [...] ELLIPTA 200-62.5-25 mcg inhalation powder Generic drug: vjndoxukfix-kpnngfcpb-dopeasih Inhale 1 Puff as instructed once daily. [...] Recommendations: Followup LDCT in 6 months Reference: [employer]. Lung CT Screening Reporting and Data System (Lung-RADS). Available at: http://www.acr.org/Quality-Safety/Resources/LungRADS Piano Case Maker: PAT Transcribe Date/Time: Jan 25 2025 11:45A Dictated by : VIDAL PULLIAM MD This examination was interpreted and the report reviewed and electronically signed by: VIDAL PULLIAM MD on Jan 25 2025 11:51AM EST Results-Findings * * *Final Report* * * DATE OF EXAM: Jan 25 2025 11:06AM [facility] 0561 - CT LUNG FOLLOWUP WO IVCON / PROCEDURE REASON: Lung nodule, < 6mm, high cancer risk * * * * Physician Interpretation * * * * EXAMINATION: CT LUNG FOLLOWUP WO IVCON CLINICAL HISTORY: Lung nodules Technique: Spiral CT acquisition of the chest from the thoracic inlet to the upper abdomen without contrast. MQ: [id number]_6 Followup LDCT Patient characteristics: * Wstf-hg-Uvhpo: 1955; Age at exam: 69 years * Gender: Female * Lung Disease: Asymptomatic (no signs or symptoms of lung disease) * Number of Pack Years: 38 * Current smoker (=0) or Number of Years since Quit: 15 * Ordering provider and NPI: MARICRUZ CAMP [id number] * Interpreting radiologist and NPI: Nicole [id number] Exam acquisition parameters: * Exam Date: 01/25/2025 11:06 AM * Site: [facility] * * CT System Distribution Center Administrator: Siemens * CT System Model: Sensation * [...] Albuterol/Duoneb. 3. Chronic respiratory failure with hypoxia ([facility]) - ICD9: 518.83, 799.02, ICD10: J96.11 - continues to be compliant and benefit from supplemental O2 F/u scheduled in May Portions of this documentation were copied and pasted from previous office visit notes in order to provide a cohesive continuity of the history. The note has been reviewed and edited and updated as necessary. Lisa Goodman APRN.ELVIA I spent a total of 25 minutes on the date of the service which included preparing to see the patient, egzp-tv-xwes patient care, completing clinical documentation, performing a medically appropriate examination, counseling and educating the patient/family/caregiver, and ordering medications, tests,or procedures. documented in this encounterAdams [facility] Hospital05-14-2025 NoteHNO ID: [id number] Author: LISA GOODMAN APRN.CNP Service: ? Author Type: Nurse Practitioner Type: Progress Notes Filed: 03/10/2025 13:47 Note Text: Pulmonary Medicine Patients name: Lisa Lucero Linwood PCP: Phuc Martines DO CC: concern for ROXY HPI: Lisa Lucero is a 69 year old female former 71-lzqe-tdyc smoker, quitting in 2008 with PMH significant [...] that time. She was just hospitalized at [facility] 02/19 - 02/23 for SOB/leg swelling in [...] disease) (HCC) 02/03/2010 Coronary artery disease No SD, CHF. No heart cath. Diverticulosis of colon [...] ELLIPTA 200-62.5-25 mcg inhalation powder Generic drug: zchkuaurafv-ehtxsoizy-ybooiwnf Inhale 1 Puff as instructed once daily. [...] Recommendations: Followup LDCT in 6 months Reference: [place] (more content not included)...[facility]05-05-2025 Instructions* Patient Instructions* Janette Damon APRN.CNP - 03/01/2025 12:45 PM EDT Follow-up with pulmonology and discuss possible sleep apnea Make follow-up with cardiology Hold Amlodipine for now documented in this encounterAdams [facility] Hospital05-05-2025 History of Present illness Narrative* Janette Damon APRN.CNP - 03/01/2025 12:20 PM EDT 02/26/2025 Patient presents with: Hospital F/U: [facility] COPD SUBJECTIVE: This is a 69 year old that is here today for Above Complaints. HOSPITAL/ER FOLLOW UP: Reason for visit: SOB, and leg swelling Which facility: [facility] Date of visit: 02/19/2025-02/23/2025 Diagnosis: COPD, atrial [...] as yet. Was wanting to stay within [facility] system. Denies dyspnea, orthopnea wheezing, chest pain, palpitations or leg swelling. Follows with [facility] floorworker lasting. Last appointment on 12/25/2024. Uses 3/4L/NC at rest and 6 L/NC with exertion. She feels her breathing as at her baseline. ER records reviewed PAST MEDICAL HISTORY Diagnosis Date Chronic hypoxemic respiratory failure (HCC) COPD (chronic obstructive pulmonary disease) (HCC) 02/03/2010 Coronary artery disease No SD, CHF. No heart cath. Diverticulosis of colon [...] hours as needed for wheezing/shortness of breath. hfkvtwebkra-lvyqehukb-ozmviggn (TRELEGY ELLIPTA) 200-62.5-25 mcg inhalation powder Inhale [...] 427.32, ICD10: I48.92 - she follow-up with [facility] cardiology if unable to get appointment with [...] 4 weeks for hypertension visit Janette Damon APRN.NEWSSTAND VENDOR Prescription instructions reviewed with patient as applicable. [...] which included preparing to see the patient, mmyd-ci-bcpf patient care, completing clinical documentation, obtaining and/or reviewing separately obtained history, performing a medically appropriate examination, counseling and educating the pat ient/family/caregiver, and ordering medications, tests, or procedures. [facility] NoteHNO ID: [id number] Author: JANETTE DAMON APRN.ELVIA Service: ? Author Type: Nurse Practitioner Type: Progress Notes Filed: 03/01/2025 14:15 Note Text: 02/26/2025 Patient presents with: Hospital F/U: [facility] COPD SUBJECTIVE: This is a 69 year old that is here today for Above Complaints. HOSPITAL/ER FOLLOW UP: Reason for visit: SOB, and leg swelling Which facility: [facility] Date of visit: 02/19/2025-02/23/2025 Diagnosis: COPD, atrial [...] as yet. Was wanting to stay within [facility] system. Denies dyspnea, orthopnea wheezing, chest pain, palpitations or leg swelling. Follows with [facility] floorworker lasting. Last appointment on 12/25/2024. Uses 3/4L/NC at rest and 6 L/NC with exertion. She feels her breathing as at her baseline. ER records reviewed PAST MEDICAL HISTORY Diagnosis Date Chronic hypoxemic respiratory failure (HCC) COPD (chronic obstructive pulmonary disease) (HCC) 02/03/2010 Coronary artery disease No SD, CHF. No heart cath. Diverticulosis of colon [...] hours as needed for wheezing/shortness of breath. chgybuurxsq-wagfsdpyq-lwnxxvsw (TRELEGY ELLIPTA) 200-62.5-25 mcg inhalation powder Inhale [...] due on 01/13/2030 In (more content not included)...[facility]04-29-2025 Discharge summary [facility] Note Date/Time February 23, 2025 1:[address] [facility] Medical Records Department [address] [place] [address] Instructions for Home/Discharge Instructions 02/23/25 1320 MR#: [id number] Acct: [id number] Name: LISA LUCERO Bora Rep #:[id number] : 1955 69 From: [...] [Daily Multi-Vitamin] Tablet 1 tab PO DAILY White House Saline 0.65 % aerosol,spray 1 spray intranasal [...] DO; Dr. Kym Norton MD ~ Signed [facility] Work Phone: 1(830) 159-145004-29-2025 Discharge summary Author [facility]ee [facility] Note Date/Time February 23, 2025 2:[address] [facility] Medical Records Department [address] [place] [address] Discharge Summary 02/23/25 1322 MR#: [id number] Acct: [id number] Name: LISA LUCERO Rep #:[id number] : 1955 69 From: Yee Jones MD PCP: Dr. Phuc Martines DO Status:[facility] IN Location: [place] [address] Providers Date of Admission: 02/19/25 Date of [...] sodium chloride 0.65 % nasal spray aerosol (White House Saline) 1 spray intranasal BID PRN dry [...] (Auto) 78.1 H, Lymph % (Auto) 11.2 L,[place] % (Auto) 7.9, Eos % (Auto) 1.7, [...] [Daily Multi-Vitamin] Tablet 1 tab PO DAILY White House Saline 0.65 % aerosol,spray 1 spray intranasal [...] Self Care Charges/Coding Visit Charges Inpatient E&M: 48987 Disch Hosp >30min 02/23/25 1449 <Electronically signed by Yee Jones MD> Cosigner Signature (if applicable): CC: Dr. Phuc Martines DO; Dr. Yee Jones MD~ Signed [facility] Work Phone: 1(840) 984-466604-29-2025 Discharge summary [facility] Medical Records Department [address] [place] [address] Discharge Summary 02/23/25 1322 MR#: [id number] Acct: [id number] Name: LISA LUCERO Rep #:[id number] : 1955 69 From: Yee Jones MD PCP: Dr. Phuc Martines DO Status:AD M IN [facility] Providers Date of Admission: 02/19/25 Date [...] sodium chloride 0.65 % nasal spray aerosol (White House Saline) 1 spray intranasal BID PRN dry [...] (Auto) 78.1 H, Lymph % (Auto) 11.2 L,[place] % (Auto) 7.9, Eos % (Auto) 1.7, [...] [Daily Multi-Vitamin] Tablet 1 tab PO DAILY White House Saline 0.65 % aerosol,spray 1 spray intranasal [...] Self Care Charges/Coding Visit Charges Inpatient E&M: 74445 Disch Hosp >30min 02/23/25 1449 Cosigner Signature (if applicable): CC: Dr. Phuc Martines DO; Dr. Yee Jones MD~ Signed [facility]04-29-2025 Consult note [facility] Medical Records Department [address] [place] [address] Counseling Note - Pharmacy 02/23/25 1410 MR#: [id number] Acct: [id number] Name: LISA LUCERO Rep #:[id number] : 1955 69 From: Brandan Rodas PCP: Dr. Phuc Martines DO Status:AD M IN Y Location: [place] [address] Pharmacy [facility] Pharmacy Service has performed discharge [...] understanding of their dischargemedications. Patient counseled by construction specialistPete. Medications at Discharge Home Medications Oxygen, Home [...] sodium chloride 0.65 % nasal spray aerosol (White House Saline) 1 spray intranasal BID PRN dry [...] tabs 02/23/25 02/23/25 1412 Date _ Brandan Herron Signature (if applicable): Date CC: ~ Signed [facility]04-29-2025 Discharge summary [facility] Medical Records Department [address] [place] [address] Instructions for Home/Discharge Instructions 02/23/25 1320 MR#: [id number] Acct: [id number] Name: LISA LUCERO Rep #:[id number] : [...] [Daily Multi-Vitamin] Tablet 1 tab PO DAILY White House Saline 0.65 % aerosol,spray 1 spray intranasal [...] can be placed): Home, Self Care 02/23/25 1322Yee Jones MD CC: Dr. Phuc Martines DO; Dr. Claudia Valerio DO; Dr. Kym Norton MD ~ [facility]04-29-2025 [facility] Medical Records Department [address] [place] [address] Discharge Summary 02/23/25 1322 MR#: [id number] Acct: [id number] Name: LISA LUCERO Rep #: [id number] : 1955 69 From: Yee Jones MD PCP: Dr. Phuc Martines DO Status:ADM IN Location: [place] [id number] Providers Date of Admission: 02/19/25 Date of [...] sodium chloride 0.65 % nasal spray aerosol (White House Saline) 1 spray intranasal BID PRN dry [...] moderate global right ventricular (more content not included)...[facility]04-28-2025 Progress note Author Yee Jones [facility] Note Date/Time February 22, 2025 4:[address] [facility] Medical Records Department [address] [place] [address] Progress Note 02/22/25 1411 MR#: [id number] Acct: [id number] Name: LISA LUCERO Rep #:[id number] : 1955 69 From: Yee Jones MD PCP: Dr. Phuc Martines, DO Status:AD M IN Location: [place] [address] Subjective Subjective Patient seen and examined. She [...] / 240 Output Total 1650 / 1650 0 / 0 700 / 700 Balance -400 / -160 [...] with ambulation. Charges/Coding Visit Charges Inpatient E&M: 64099 Subs Hosp L2 02/22/25 1644 <Electronically signed by Yee Jones MD> Yee Jones MD Cosigner Signature (if applicable): CC: ~ Signed [facility] Work Phone: 1(800) 995-593004-28-2025 Progress note [facility] Medical Records Department [address] [place] [address] Progress Note 02/22/25 1411 MR#: [id number] Acct: [id number] Name: LISA LUCERO Rep #:[id number] : 1955 69 From: Yee Jones MD PCP: Dr. Phuc Martines, DO Status:AD M IN Location: [place] [id number]- [id number] Subjective Subjective Patient seen and examined. She [...] / 240 Output Total 1650 / 1650 0 / 2050 700 / 700 Balance -400 [...] with ambulation. Charges/Coding Visit Charges Inpatient E&M: 09104 Subs Hosp L2 02/22/25 1580 Yee Jones MD Cosigner Signature (if applicable): CC: ~ Signed [facility]04-27-2025 Progress note Author Claudia Valerio [facility] Note Date/Time February 21, 2025 3:[address] [facility] Medical Records Department [address] [place] [address] Progress Note - Hospitalist 02/21/25 1144 MR#: [id number] Acct: [id number] Name: LISA LUCERO Rep #:[id number] : 1955 69 From: Claudia Valerio DO PCP: Dr. Phuc Martines, Status:[facility] IN Location: [place] [address] Reason for Visit Reason for Visit: Shortness [...] Balance -220 / -220 -400 / -160 Lab / Micro Data 02/21/25 04:42 02/21/25 [...] follow-up and would like to follow-up at [facility]--> she stated she would get a referral [...] - Patient follows with pulmonary medicine at [facility] - Does not seem to be [...] on admission Charges/Coding Visit Charges Inpatient E&M: 95561 Subs Hosp L2 02/21/25 1528 <Electronically signed by Claudia Valerio DO> Cosigner Signature (if applicable): CC: ~ Signed [facility] Work Phone: 1(234) 837-814604-27-2025 Progress note [facility] Medical Records Department [address] [place] [address] Progress Note - Hospitalist 02/21/25 1144 MR#: [id number] Acct: [id number] Name: LISA LUCERO Rep #:[id number] : 1955 69 From: Claudia Valerio DO PCP: Dr. Phuc Martines, DO Status:AD M IN Location: [place] [address] Reason for Visit Reason for Visit: Shortness [...] follow-up and would like to follow-up at [facility]--> she stated she would get a referral [...] - Patient follows with pulmonary medicine at [facility] - Does not seem to be [...] on admission Charges/Coding Visit Charges Inpatient E&M: 83468 Subs Hosp L2 02/21/25 1528 Cosigner Signature (if applicable): CC: ~ Signed [facility]04-26-2025 Progress note Author Claudia Valerio [facility] Note Date/Time February 20, 2025 2:[address] [facility] Medical Records Department [address] [place] [address] Progress Note - Hospitalist 02/20/25 0807 MR#: [id number] Acct: [id number] Name: LISA LUCERO Rep #:[id number] : 1955 69 From: Claudia Valerio DO PCP: Dr. Phuc Martines, Status:AD M IN Location: [place] [address] Reason for Visit Reason for Visit: Shortness [...] 80.0 H, Lymph % (Auto) 9.8 L, [place] % (Auto) 8.5, Eos % (Auto) 1.0, [...] Clarity Clear, Urine pH 6.0, Ur Specific [place] 1.010, Urine Protein Negative, Urine Glucose (UA) [...] Cholesterol, Calc 101, VLDL Cholesterol 12, HDL Clhxoyetiqv70, Cholesterol/HDL Ratio 2.63, TSH 0.626 Micro: Microbiology [...] - Patient follows with pulmonary medicine at [facility] - Does not seem to be [...] on admission Charges/Coding Visit Charges Inpatient E&M: 92589 Subs Hosp L2 02/20/25 1444 <Electronically signed by Claudia Valerio DO> Cosigner Signature (if applicable): CC: ~ Signed [facility] Work Phone: 1(192) 292-376804-26-2025 Progress note [facility] Medical Records Department [address] [place] [address] Progress Note - Hospitalist 02/20/25806 MR#: [id number] Acct: [id number] Name: LISA LUCERO Rep #:[id number] : 1955 69 From: Claudia Valerio DO PCP: Dr. Phuc Martines DO Status:AD M IN Location: [place] [id number]- 1 Reason for Visit Reason for Visit: [...] 80.0 H, Lymph % (Auto) 9.8 L, [place] % (Auto) 8.5, Eos % (Auto) 1.0, [...] Clarity Clear, Urine pH 6.0, Ur Specific [place] 1.010, Urine Protein Negative, Urine Glucose (UA) [...] 223, MPV 11.2, Sodium 142, Potassium 3.8, Zrvylroz28 L, Carbon Dioxide 34.3 H, Anion Gap13, [...] Cholesterol, Calc 101, VLDL Cholesterol 12, HDL Zaosyrnrpay77, Cholesterol/HDL Ratio 2.63, TSH 0.626 Micro: Microbiology [...] bed, watching television and talkingon the phone. Hangsup upon my arrival, appears comfortable, nontoxic, remains [...] - Patient follows with pulmonary medicine at [facility] - Does not seem to be [...] on admission Charges/Coding Visit Charges Inpatient E&M: 45157 Subs Hosp L2 02/20/25 1444 Cosigner Signature (if applicable): CC: ~ Signed [facility]04-26-2025 Radiology Diagnostic study note [facility] Imaging [place] [address] CTA Chest W/WO Contrast MR#: [id number] Acct: [id number] Name: LISA LUCERO Rep #: [id number] : 1955 F 69 From: Bev Drummond MD PCP: Dr. Phuc Martines DO Status: AD M IN Study:CTA Chest W/WO Contrast Date of Exam: 02/20/25 Exam# [id number] Ordering Dr: Kinza Valerio DO EXAM: CT [...] in 6 months is recommended. Reading Location: [facility] CC: Dr. Phuc Martines DO; Dr. Claudia Valerio DO ~ Piano Case Maker: Signed [facility]04-25-2025 History and physical note Author Kym Norton [facility] Note Date/Time February 19, 2025 4:[address] [facility] Medical Records Department [address] [place] [address] H&P Exam - Hospitalist 02/19/25 1548 MR#: [id number] Acct: [id number] Name: LISA LUCERO Rep #:[id number] : 1955 69 From: Kym Norton MD PCP: Dr. Phuc Martines, DO Status:AD M IN Location: [facility] [id number]- [id number] HPI - General General Date of Admission: 02/19/25 Date of Service: 02/19/25 Chief Complaint: Increase shortness of breath and lower extremity swelling HPI Narrative LISA LUCERO, is a 69-year-old female with a history of COPD on 3 L nasal cannula and hypertension who presented to [facility] ED 02/19/2025 with increased shortness of breath [...] not note any history of withdrawal symptoms. COUNTS INCLUDE 234 BEDS AT [facility] Medical History COPD (chronic obstructive pulmonary [...] BID PRN dry 02/19/25 Unknown History aerosol (White House Saline) nasal passages triamcinolone acetonide 0.5 % [...] Std Deviation 53.2 H, RDW Coeff of Kraly 14.6, Plt Count 231, MPV 10.4, Immature Gran % (Auto) 0.200, Neut % (Auto) 80.0 H, Lymph % (Auto) 9.8 L, [place] % (Auto) 8.5, Eos % (Auto) 1.0, [...] Clarity Clear, Urine pH 6.0, Ur Specific [place] 1.010, Urine Protein Negative, Urine Glucose (UA) [...] setting of COPD on 3 L home Q2btsmwxq secondary to new onset heart failure -Patient [...] 78 Minutes Charges/Coding Visit Charges Inpatient E&M: 52333 Init Hosp L3 02/19/25 1613 <Electronically signed by Kym Norton MD> Cosigner Signature (if applicable): CC: Dr. Phuc Martines, DO; Dr. Kym Norton MD~ Signed [facility] Work Phone: 1(226) 396-755104-25-2025 Evaluation note* Diagnosis Onset Date Resolution Status Admit Date Atrial flutter acute January 3:53pm Dyspnea on exertion acute February 19, 2025 3:53pm Shortness of breath acute February 19, 2025 3:53pm Acute on chronic hypoxic respiratory failure chronic February 19, 2025 3:53pm [facility] Work Phone: 1(197) 817-597604-25-2025 Evaluation note* Diagnosis Onset Date Resolution Status Admit Date Atrial flutter acute January 3:53pm Shortness of breath acute February 19, 2025 3:53pm Acute on chronic hypoxic respiratory failure resolved February 19, 2025 3:53pm Dyspnea on exertion resolved February 19, 2025 3:53pm Atrial flutter acute March 30, 2025 11:24am [facility] Work Phone: 1([phone]) 184-309504-25-2025 Evaluation note* Diagnosis Onset Date Resolution Status Admit Date Atrial flutter acute January 3:53pm Shortness of breath acute February 19, 2025 3:53pm Acute on chronic hypoxic respiratory failure resolved February 19, 2025 3:53pm Dyspnea on exertion resolved February 19, 2025 3:53pm Alcohol abuse acute March 30, 2 025 11:24am Atrial flutter acute March 30, 2025 11:24am ROXY (obstructive sleep apnea) acute March 30, 2025 11:24am COPD (chronic obstructive pulmonary disease) chronic March 30 11:24am Hypertension chronic March 30 11:24am Atrial flutter with rapid ventricular response acute April 23, 2025 9:51pm [facility] Work Phone: 1(654) [phone] Evaluation note* Diagnosis Onset Date Resolution Status Admit Date Atrial flutter acute January 3:53pm Shortness of breath acute February 19, 2025 3:53pm Acute on chronic hypoxic respiratory failure resolved February 19, 2025 3:53pm Dyspnea on exertion resolved February 19, 2025 3:53pm Alcohol abuse acute March 30, 025 11:24am Atrial flutter acute March 30, 2025 11:24am ROXY (obstructive sleep apnea) acute March 30, 2025 11:24am COPD (chronic obstructive pulmonary disease) chronic March 30 11:24am Hypertension chronic March 30 11:24am Atrial flutter with rapid ventricular response inactive April 23, 2025 9:51pm Shortness of breath acute May 07, 2025 1:02pm [facility] Work Phone: 1(221) 415-497604-25-2025 Discharge summary Author Linwood Ivy [facility] Note Date/Time February 19, 2025 3:[address] [facility] Medical Records Department [address] [facility] [place] [address] Emergency Department Summary 02/19/25 MR#: [id number] Acct: [id number] Name: LISA LUCERO Rep #:[id number] : 1955 69 From: Linwood Ivy DO PCP: Dr. Phuc Martines, DO Status:AD M IN Location: [facility] [id number]- [address] Linwood Ivy DO [...] not coughing up significant mount of phlegm. [facility] Medical History COPD (chronic obstructive pulmonary disease) [...] BID PRN dry 02/19/25 Unknown History aerosol (White House Saline) nasal passages triamcinolone acetonide 0.5 % [...] follow commands and that she was at [facility] year is 2024 Skin: Warm, dry, [...] 80.0 H Lymph % (Auto) 9.8 L [place] % (Auto) 8.5 Eos % (Auto) 1.0 [...] Clarity Clear Urine pH 6.0 Ur Specific [place] 1.010 Urine Protein Negative Urine Glucose (UA) Normal Urine Ketones Negative Urine Occult Blood Negative Urine Nitrite Negative Urine Bilirubin Negative Urine Urobilinogen Normal Ur Leukocyte Esterase 25 H Radiography Diagnostic Testing: Clinical Impression(s) from Imaging Studies Chest X-Ray 02/19/25 13:40 IMPRESSION: Pulmonary venous congestive changes. [facility] Triage Chief Complaint: Shortness of [...] [Daily Multi-Vitamin] Tablet 1 tab PO DAILY White House Saline 0.65 % aerosol,spray 1 spray intranasal BID PRN (Reason: dry nasal passages) triamterene-hydrochlorothiazid 37.5-25 mg capsule 1 cap PO DAILY Patient Comments: PT TAKES IN AFTERNOON guaifenesin [Mucus Relief ER] 1,200 MG tablet 1,200 mg PO BID PRN (Reason: cough) Primary Care Provider: Phuc Martines Referrals: Phuc Martines DO [Primary Care Provider] - Print Language: Nicaraguan Disposition Disposition: Acute Care Hospital [facility] What to do if you have Problems For any increased pain, shortness of breath, bleeding, nausea or vomiting, chestpain, or any unexpected problems, contact your Primary Care Provider. Call [facility] ([phone]) or report to the closest Emergency Room. Call 911 if necessary. 02/19/25 1504 <Electronically signed by Linwood Ivy DO> Cosigner Signature (if applicable): CC: Dr. Phuc Martines DO ~ Signed [facility] Work Phone: 1(233) [phone] History and physical note [facility] Medical Records Department [address] [place] [address] H&P Exam - Hospitalist 02/19/25 1548 MR#: [id number] Acct: [id number] Name: LISA LUCERO Rep #:[id number] : 1955 69 From: Kym Norton MD PCP: Dr. Phuc Martines, Status:AD M IN Location: [facility] [id number]- 1 HPI - General General Date of Admission: 02/19/25 Date of Service: 02/19/25 Chief Complaint: Increase shortness of breath and lower extremity swelling HPI Narrative LISA LUCERO, is a 69-year-old female with a history of COPD on 3 L nasal cannula and hypertension who presented to [facility] ED 02/19/2025 with increased shortness of breath [...] does not noteany history of withdrawal symptoms. COUNTS INCLUDE 234 BEDS AT [facility] Medical History COPD (chronic obstructive pulmonary [...] BID PRN dry 02/19/25 Unknown History aerosol (White House Saline) nasal passages triamcinolone acetonide 0.5 % [...] 80.0 H, Lymph % (Auto) 9.8 L, [place] % (Auto) 8.5, Eos % (Auto) 1.0, [...] Clarity Clear, Urine pH 6.0, Ur Specific [place] 1.010, Urine Protein Negative, Urine Glucose (UA) [...] setting of COPD on 3 L home [id number] secondary to new onset heart failure -Patient [...] 78 Minutes Charges/Coding Visit Charges Inpatient E&M: 32863 Init Hosp L3 02/19/25 1613 Cosigner Signature (if applicable): CC: Dr. Phuc Martines DO; Dr. Kym Norton MD~ Signed [facility]04-25-2025 Discharge summary [facility] Medical Records Department [address] [place] [address] Emergency Department Summary 02/19/25 MR#: [id number] Acct: [id number] Name: LISA LUCERO Rep #:[id number] : 1955 69 From: Linwood Ivy DO PCP: Dr. Phuc Martines DO Status:AD M IN Location: [facility] [id number]- [address] Linwood Ivy DO [...] not coughing up significant mount of phlegm. [facility] Medical History COPD (chronic obstructive pulmonary disease) [...] BID PRN dry 02/19/25 Unknown History aerosol (White House Saline) nasal passages triamcinolone acetonide 0.5 % 1 applic topical BID PRN itching 02/19/25 Unknown History topical cream triamterene 37.5 1 cap PO DAILY 02/19/25 04/2 02/19 History mg-hydrochlorothiazide 25 mg capsule Allergy/AdvReac Type [...] follow commands and that she was at [facility] year is 2024 Skin: Warm, dry, [...] 80.0 H Lymph % (Auto) 9.8 L [place] % (Auto) 8.5 Eos % (Auto) 1.0 [...] Clarity Clear Urine pH 6.0 Ur Specific [place] 1.010 Urine Protein Negative Urine Glucose (UA) Normal Urine Ketones Negative Urine Occult Blood Negative Urine Nitrite Negative Urine Bilirubin Negative Urine Urobilinogen Normal Ur Leukocyte Esterase 25 H Radiography Diagnostic Testing: Clinical Impression(s) from Imaging Studies Chest X-Ray 02/19/25 13:40 IMPRESSION: Pulmonary venous congestive changes. Reading Location: [facility] Discharge Plan Triage Chief Complaint: Shortness of [...] [Daily Multi-Vitamin] Tablet 1 tab PO DAILY White House Saline 0.65 % aerosol,spray 1 spray intranasal BID PRN (Reason: dry nasal passages) triamterene-hydrochlorothiazid 37.5-25 mg capsule 1 cap PO DAILY Patient Comments: PT TAKES IN AFTERNOON guaifenesin [Mucus Relief ER] 1,200 MG tablet 1,200 mg PO BID PRN (Reason: cough) Primary Care Provider: Phuc Martines Referrals: Phuc Martines DO [Primary Care Provider] - Print Language: Nicaraguan Disposition Disposition: Acute Care Hospital [facility] What to do if you have Problems For any increased pain, shortness of breath, bleeding, nausea or vomiting, chestpain, or any unexpected problems, contact your Primary Care Provider. Call [facility] ([phone]) or report tothe closest Emergency Room. Call 911 if necessary. 02/19/25 1504 Cosigner Signature (if applicable): CC: Dr. Phuc Martines DO ~ Signed [facility]04-25-2025 Radiology Diagnostic study note [facility] Imaging Services [address] [place], [place] [id number] Chest PA and Lateral MR#: [id number] Acct: [id number] Name: LISA LUCERO Rep #: [id number] : 1955 F 69 From: Vicki Mccabe MD PCP: Dr. Phuc Martines DO Status: RE G ER Study:Chest PA and Lateral Date of Exam: 02/19/25 Exam# [id number] Ordering Dr: Yonatan Ivy DO PROCEDURE: CHEST [...] CC: Dr. Phuc Martines DO; Dr. Linwood Iyv DO ~ Piano Case Maker: Signed [facility]04-01-2025 Telephone encounter Note* Telephone Encounter - Maricruz Camp APRN.CNP - 01/26/2025 4:47 PM EDT Left message for patient to check Mychart message and call back if she wants to discuss this further. Category 3 LDCT due to residual RML opacity, likely inflammatory/iinfectious. Maricruz Camp APRN.CNP [facility]04-01-2025 Miscellaneous Notes* Telephone Encounter - Maricruz Camp APRN.CNP - 01/26/2025 4:47 PM EDT Left message for patient to check Mychart message and call back if she wants to discuss this further. Category 3 LDCT due to residual RML opacity, likely inflammatory/iinfectious. Maricruz Camp APRN.CNP documented in this encounterAdams [facility] Hospital03-31-2025 Instructions* Patient Instructions* Maricruz Camp APRN.CNP - [...] curative intent treatment Lung Cancer Screening hotline: [phone] Specialist Providers: (Basia Guzman NEWSSTAND VENDOR; Josefina Ceron NEWSSTAND VENDOR; Jes Dewitt CNP; ELVIA Dixon; Lakia Ohara PA-C; Keely Castillo PA-C; Lisha Cruz CNP, Nadia Wilson NEWSSTAND VENDOR, Veronica Grover NEWSSTAND VENDOR, Maricruz Camp CNP & Chiquis Rico PA-C): [phone] documented in this encounterAdams County Hospital03-31-2025 History of Present illness Narrative* Jes Galaviz, RT(R) - 01/25/2025 10:40 AM EDT Radiology [...] PATIENT PRESENTS WITH AN IMPLANTABLE OR ATTACHED PROPERTY ADMINISTRATOR: No RADIOLOGY DEPARTMENT: CT; Exam(s) Completed: Lung Screening PERIPHERAL IV DATA: Not applicable SIGNED BY: RT Flower(Tarun) January 25, 2025 1:52 PM documented in this encounterAdams County Hospital03-31-2025 NoteHNO ID: [id number] Author: JES GALAVIZ RT(R) Service: ? Author Type: Warning Analyst Type: Progress Notes Filed: 01/25/2025 13:52 [...] PATIENT PRESENTS WITH AN IMPLANTABLE OR ATTACHED PROPERTY ADMINISTRATOR: No RADIOLOGY DEPARTMENT: CT; Exam(s) Completed: Lung Screening PERIPHERAL IV DATA: Not applicable SIGNED BY: ISRA Crenshaw) January 25, 2025 1:52 [facility]03-31-2025 NoteHNO ID: [id number] Author: MARICRUZ CAMP APRN.ELVIA Service: ? Author Type: Nurse Practitioner [...] activities of daily living. Modified Medical Research [place] Dyspnea Scale (MMRC) On level ground I [...] disease) (HCC) 02/03/2010 Coronary artery disease No SD, CHF. No heart cath. Diverticulosis of colon [...] to 08/29/2022. Prior PFTS: SPIROMETRY BASELINE ONLY ([id number]) - ordered on 03/16/22 No textual results for order. SPIROMETRY BASELINE ONLY ([id number]) - ordered on 03/31/20 [facility] [address] , [place] [address] Test Date: 2020-03-31 Pat Name: LISA LUCERO Department: Room: Gender: Female Warning Analyst: JANKI Lee : 1955 Requested By: Ivan CHRISTINE Order Number: [id number] Reading MD: Joel Childs Interpretive Statements ATS/ERS acceptabil (more content not included)...[facility] 01-25-2025 History of Present illness Narrative* Maricruz Camp APRN.[facility] - 01/25/2025 10:22 AM EDT Chief Complaint: [...] activities of daily living. Modified Medical Research [place] Dyspnea Scale (MMRC) On level ground I [...] disease) (HCC) 02/03/2010 Coronary artery disease No SD, CHF. No heart cath. Diverticulosis of colon [...] to 08/29/2022. Prior PFTS: SPIROMETRY BASELINE ONLY ([id number]) - ordered on 03/16/22 No textual results for order. SPIROMETRY BASELINE ONLY ([id number]) - ordered on 03/31/20 [facility] [address] [facility] [address], [place] [address] Test Date: 2020-03-31 Pat Name: LISA MICHELLE Department: Room: Gender: Female Warning Analyst: JANKI Lee : 1955 Requested By: Ivan CHRISTINE Order Number: [id number] Reading MD: Joel Childs Interpretive Statements ATS/ERS [...] EDT by Joel Childs Site: WO ID: [id number] Name: LISA LUCERO Visit Date: 03/31/2020 Second ID: [id number] Referring Doctor: Ivan CHRISTINE Warning Analyst: JANKI Lee Age: 64 : 1955 Sex: Female Race: <Other> Height: 64.50 Inches Weight: 255.80 Lbs BSA: 2.18 Order IDs: [id number] Requested Test(s): Spirometry baseline only Post Test [...] radiology report. Six year risk is 1.4% [email or web address] 2. Nicotine Dependence, Former: Continue to abstain from smoking cigarettes. Maricruz Camp APRN.[facility] January 25, 2025 10:22 AM documented in this encounterAdams County Hospital03-26-2025 NoteHNO ID: [id number] Author: PHUC MARTINES, DO Service: ? 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 Feels she is coping okay. Has support from her children COPD oxygen dependent, stage 3., seeing Edi Programmer Analyst- recently had jillianaleksander increased and feels this is helping her PAST MEDICAL HISTORY Diagnosis Date Chronic hypoxemic respiratory failure (HCC) COPD (chronic obstructive pulmonary disease) (HCC) 02/03/2010 Coronary artery disease No SD, CHF. No heart cath. Diverticulosis of colon [...] hours as needed for wheezing/shortness of breath. nhyhtrwsacc-hccybrwbh-vuxhgytw (TRELEGY ELLIPTA) 200-62.5-25 mcg inhalation powder Inhale [...] - ICD9: 780.79, ICD10: (more content not included)...[facility]03-26-2025 History of Present illness Narrative* Phuc Martines, - 01/20/2025 8:50 PM EDT CC: Lisa Lucero is a 69 year old female who presents to the office for follow up HPI: HTN, recently controlled, no further dizziness. No chest pain/pressure. Has chronic dyspnea. No newedema or SINHA's or syncope symptoms. 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 Feels she is coping okay. Has support from her children COPD oxygen dependent, stage 3., seeing Edi Programmer Analyst- recently had jaziel increased and feels this is helping her PAST MEDICAL HISTORY Diagnosis Date Chronic hypoxemic respiratory failure (HCC) COPD (chronic obstructive pulmonary disease) (HCC) 02/03/2010 Coronary artery disease No SD, CHF. No heart cath. Diverticulosis of colon [...] hours as needed for wheezing/shortness of breath. 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 Essential hypertension - ICD9: 401.9, ICD10: I10 - Controlled - Continue current medications - Recommend home blood pressure monitoring, to bring results to next visit - Encouraged sodium restriction, DASH or Mediterranean diet - Recommend regular aerobic exercise 9. Oxygen dependent - ICD9: V46.2, ICD10: Z99.81 See above 10. Morbid obesity with BMI of 45.0-49.9, adult ([facility]) - ICD9: 278.01, V85.42, ICD10: E66.01, Z68.42 Stable - Behavioral intervention and - Eat well program Phuc Martines DO Return if no improvement. Follow up with Phuc Martines DO. To ER if develops chest pain, shortness of breath. Discussed risks, benefits, alternatives, and potential side effects of medications. Patient/Guardian expressed understanding and agreed with the plan. See patient instructions. Phuc Martines DO [address] [place] [address] * Phuc Martines DO - 01/20/2025 8:48 [...] kg/(m^2) Phuc Martines DO documented in this encounterAdams County Hospital03-26-2025 NoteHNO ID: [id number] Author: PHUC MARTINES DO Service: ? Author [...] benefit of weight loss. BMI 45.32 kg/(m2) Phuc Martines [facility]02-28-2025 Instructions* Patient Instructions* Lisa Goodman APRN.CNP - 12/25/2024 11:59 AM EST Increase the dose of Trelegy. Remember to rinse after you use. If there is any concern with cost, we can try splitting Trelegy into 2 different inhalers. Monitor your oxygen levels with activity especially. Our last testing shows you require 6 liter of oxygen with activity. documented in this encounterAdams County Hospital02-28-2025 History of Present illness Narrative* Lisa Goodman APRN.CNP - 12/25/2024 11:30 AM EST Images from the original note were not included. Pulmonary Medicine Patients name: Lisa Palumbo PCP: Phuc Martines DO CC: follow-up COPD HPI: Lisa Lucero is a 69 year old female former 10-etkq-fsug smoker, quitting in 2008 with PMH significant [...] disease) (HCC) 02/03/2010 Coronary artery disease No SD, CHF. No heart cath. Diverticulosis of colon [...] ELLIPTA 100-62.5-25 mcg inhalation powder Generic drug: yrttnhjilis-sbcrzflfy-zcvhaadb USE 1 INHALATION DAILY INSTRUCTED triamcinolone acetonide [...] prior chest CT examinations is needed. Reference: [employer]. Lung CT Screening Reporting and Data System (Lung-RADS). Available at: http://www.acr.org/Quality-Safety/Resources/LungRADS Piano Case Maker: PSCJessika Transcribe Date/Time: Oct 19 2024 11:21A Dictated by : VIDAL PULLIAM MD This examination was interpreted and the report reviewed and electronically signed by: VIDAL PULLIAM MD on Oct 19 2024 11:28AM EST Results-Findings * * *Final Report* * * DATE OF EXAM: Oct 19 2024 10:09AM [facility] 0562 - CT LUNG SCREEN WO IVCON [...] without contrast. MQ: CTLCS_6 Patient characteristics: * Dyda-rz-Khcsf: 1955; Age at exam: 69 years * Gender: Female * Lung Disease: Asymptomatic (no signs or symptoms of lung disease) * Number of Pack Years: 38 * Current smoker (=0) or Number of Years since Quit: 15 * Ordering provider and NPI: MARICRUZ CAMP [id number] * Interpreting radiologist and NPI: Nicole [id number] Exam acquisition parameters: * Exam Date: 10/19/2024 10:09 AM * Site: [facility] * * CT System Distribution Center Administrator: Siemens * CT System Model: Sensation * [...] Stage 3 severe COPD by GOLD classification ([facility]) - ICD9: 496, ICD10: J44.9 (primary diagnosis) - progressively worsening exertional dyspnea. - increase Trelegy. Instructed to rinse mouth after use. - encouraged use of Duoneb or Albuterol as needed. 2. Chronic respiratory failure with hypoxia ([facility]) - ICD9: 518.83, 799.02, ICD10: J96.11 - [...] and edited and updated as necessary. Lisa oGodman APRN.ELVIA I spent a total of 27 minutes on the date of the service which included preparing to see the patient, rbkn-tq-auhx patient care, completing clinical documentation, performing a medically appropriate examination, counseling and educating the patient/family/caregiver, and ordering medications, tests,or procedures. documented in this encounterAdams County Hospital02-28-2025 NoteHNO ID: [id number] Author: LISA GOODMAN APRN.CNP Service: ? Author Type: Nurse Practitioner Type: Progress Notes Filed: 12/25/2024 12:29 Note Text: Pulmonary Medicine Patients name: Lisa Palumbo PCP: Phuc Martines DO CC: follow-up COPD HPI: Lisa Luceor is a 69 year old female former 68-sgiq-jkus smoker, quitting in 2008 with PMH significant [...] disease) (HCC) 02/03/2010 Coronary artery disease No SD, CHF. No heart cath. Diverticulosis of colon [...] ELLIPTA 100-62.5-25 mcg inhalation powder Generic drug: hxsyvgsodcu-dkycpnmbe-vivhyzqi USE 1 INHALATION DAILY INSTRUCTED triamcinolone acetonide [...] prior chest CT examinations is needed. Reference: [employer]. Lung CT Screening Reporting and Data System (Lung-RADS). Available at: http://www.acr.org/Quality-Safety/Resources/LungRADS Piano Case Maker: PAT Transcribe Date/Time: Oct 19 2024 11:21A Dictated by : VIDAL PULLIAM MD This examination was interpreted and the report reviewed and electronically signed by: VIDAL PULLIAM MD on Oct 19 2024 11:28AM EST Results-Findings * * *Final Report* * * DATE OF EXAM: Oct 19 2024 10:09AM [facility] 0562 - CT LUNG SCREEN WO IVCON [...] upper abdomen without contrast. (more content not included)...[facility]02-06-2025 History of Present illness Narrative* Jt Cheney [...] PATIENT PRESENTS WITH AN IMPLANTABLE OR ATTACHED PROPERTY ADMINISTRATOR: No RADIOLOGY DEPARTMENT: Mammography PERIPHERAL IV DATA: Not applicable SIGNED BY: Padma Bess December 03, 2024 11:01 AM documented in this encounterAdams County Hospital02-06-2025 NoteHNO ID: [id number] Author: JT CHENEY Mammo Tech Service: ? Author Type: Warning Analyst Type: Progress Notes Filed: 12/03/2024 11:01 [...] PATIENT PRESENTS WITH AN IMPLANTABLE OR ATTACHED PROPERTY ADMINISTRATOR: No RADIOLOGY DEPARTMENT: Mammography PERIPHERAL IV DATA: Not applicable SIGNED BY: Padma Bess December 03, 2024 11:01 [facility]01-31-2025 Telephone encounter Note* Telephone Encounter - Essence Ortiz RN - 11/27/2024 3:53 PM EST Patient calls and states that she needs refills of Trelegy sent to [facility] [place]. Patient also states that she has appointment [...] 01/20/2025 Requested Prescriptions Pending Prescriptions Disp Refills qyfcaqfbgwk-fpeofpzdi-hatujhjf (TRELEGY ELLIPTA) 100-62.5-25 mcg inhalation powder 3 Each 3 Sig: USE 1 INHALATION DAILY INSTRUCTED Essence Ortiz RN November 27, 2024 3:54 PM [facility]01-31-2025 Miscellaneous Notes* Telephone Encounter - Essence Ortiz RN - 11/27/2024 3:53 PM EST Patient calls and states that she needs refills of Trelegy sent to [facility] [place]. Patient also states that she has appointment [...] 01/20/2025 Requested Prescriptions Pending Prescriptions Disp Refills hmhrhejgeri-ydbdnkgfr-vlhlancm (TRELEGY ELLIPTA) 100-62.5-25 mcg inhalation powder 3 Each 3 Sig: USE 1 INHALATION DAILY INSTRUCTED Essence Ortiz RN November 27, 2024 3:54 PM documented in this encounterAdams County Hospital01-15-2025 NoteHNO ID: [id number] Author: JULIANNE DONALD MA Service: ? Author Type: Plastic Installer Type: Progress Notes Filed: 11/11/2024 15:47 Note Text: POPULATION HEALTH NAVIGATION OUTREACH Action/FYI FOLLOW UP [...] Follow-up Appointment Controlling Blood Pressure 12/25/2024 in [facility] with LISA GOODMAN - 6 MTH F/U COPD 01/25/[address]AN [facility] with CT [facility] (I-STAT) - LDCT 01/25/2025 in [facility] with MARICRUZ CAMP - LDCT 02/17/2025 in [facility] with PHUC MARTINES - FOLLOW UP HCC related Navigation Signature: Julianne Donald MA November 11, 2024 3:[facility] History of Present illness Narrative* Julianne Donald MA - 11/11/2024 3:37 PM EST POPULATION HEALTH NAVIGATION OUTREACH Action/ FOLLOW UP HCC CLOSURE Topic Due (Y [...] Follow-up Appointment Controlling Blood Pressure 12/25/2024 in [facility] with LISA GOODMAN - 6 MTH F/U COPD 01/25/[address]AN [facility] with CT [facility] (I-STAT) - LDCT 01/25/2025 in [facility] with MARICRUZ CAMP - LDCT 02/17/2025 in [facility] with PHUC MARTINES - FOLLOW UP HCC related Navigation Signature: Julianne Donald MA November 11, 2024 3:37 PM documented in this encounterAdams County Hospital01-15-2025 NotePatient Outreach (NETNAV) LISA LUCERO ([id number]) 1955 F Date Time Provider Department 11/11/24 JULIANNE DONALD NETNAV During your visit today, we recorded the following information about you: Julianne Donald MA 11/11/2024 3:47 PM Signed POPULATION HEALTH NAVIGATION OUTREACH Action/ FOLLOW UP HCC CLOSURE Topic Due (Y [...] Follow-up Appointment Controlling Blood Pressure 12/25/2024 in [facility] with LISA GODOMAN - 6 MTH F/U COPD 01/25/[address]AN [facility] with CT [facility] (I-STAT) - LDCT 01/25/2025 in [facility] with MARICRUZ CAMP - LDCT 02/17/2025 in [facility] with PHUC MARTINES - FOLLOW UP HCC related Navigation Signature: Julianne Donald MA November 11, 2024 3:37 PM Allergies As of Date: 11/11/2024 Noted Allergy Reaction ALEVE (NAPROXEN) 05/31/2020 4 - Hives Comments: Hives, edema of hands within 1 hour of use Date Reviewed: 10/19/2024 Reviewed by: Maricruz Camp APRN.NEWSSTAND VENDOR - Fully Assessed Reason for Visit: Population Health Navigation Outreach [3910] [facility] Prescriptions as of 11/11/2024 - triamterene-hydroCHLOROthiazide (DYAZIDE) 37.5-25 mg per capsule Take 1 capsule by mouth once daily. - amLODIPine (NORVASC) 10 mg tablet Take 1 tablet by mouth once daily. - txktefzxvdq-lmhxlzate-lbswhcmd (TRELEGY ELLIPTA) 100-62.5-25 mcg inhalation powder USE [...] 03/13/2024 Encounter Status:Closed by JULIANNE DONALD on 11/11/24[facility]01-09-2025 NoteHNO ID: [id number] Author: PATRICIA KEVIN HUC Service: ? Author Type: Beck Tender Type: Progress Notes Filed: 11/05/2024 14:22 Note Text: [facility] POP LUNG CANCER SCREENING FOLLOWUP ADVANCED: Diagnosis: Lung Nodule Recommendation: CT Scan Follow Up Due Date: 01/25/2025 All Follow Up Scheduled: Yes Pulmonary Follow Up Type: Lung Nodule Surveillance Patient should be added to the Lung Cancer Screening Followup Report: No Lung Cancer Screening Program [facility] 11-05-2024 History of Present illness Narrative* Patricia Kevin HUC - 11/05/2024 2:22 PM EST [facility] POP LUNG CANCER SCREENING FOLLOWUP ADVANCED: Diagnosis: Lung Nodule Recommendation: CT Scan Follow Up Due Date: 01/25/2025 All Follow Up Scheduled: Yes Pulmonary Follow Up Type: Lung Nodule Surveillance Patient should be added to the Lung Cancer Screening Followup Report: No Lung Cancer Screening Program Location: [facility] documented in this [facility]01-09-2025 NotePatient Outreach (PULMMN) LISA LUCERO ([id number]) 1955 F Date Time Provider Department 11/05/24 PATRICIA KEVIN During your visit today, we recorded the following information about you: Patricia Kevin HUC 11/05/2024 2:22 PM Signed [facility] POP LUNG CANCER SCREENING FOLLOWUP ADVANCED: Diagnosis: Lung Nodule Recommendation: CT Scan Follow Up Due Date: 01/25/2025 All Follow Up Scheduled: Yes Pulmonary Follow Up Type: Lung Nodule Surveillance Patient should be added to the Lung Cancer Screening Followup Report: No Lung Cancer Screening Program Location: [facility] Allergies As of Date: 11/05/2024 Noted Allergy Reaction ALEVE (NAPROXEN) 05/31/2020 4 - Hives Comments: Hives, edema of hands within 1 hour of use Date Reviewed: 10/19/2024 Reviewed by: Maricruz Camp APRN.NEWSSTAND VENDOR - Fully Assessed Prescriptions as of 11/05/2024 - triamterene-hydroCHLOROthiazide (DYAZIDE) 37.5-25 mg per capsule Take 1 capsule by mouth once daily. - amLODIPine (NORVASC) 10 mg tablet Take 1 tablet by mouth once daily. - oubcdohespl-zzmjbnaxr-htowtdhp (TRELEGY ELLIPTA) 100-62.5-25 mcg inhalation powder USE [...] 03/13/2024 Encounter Status:Closed by PATRICIA KEVIN on 11/05/24[facility] 10-21-2024 NotePatient Outreach (INTMMN) LISA LUCERO ([id number]) 1955 F Date Time Provider Department 10/21/24 PHUC MARTINES INTMMN During your visit today, we recorded the following information about you: Allergies As of Date: 10/21/2024 Noted Allergy Reaction ALEVE (NAPROXEN) 05/31/2020 4 - Hives Comments: Hives, edema of hands within 1 hour of use Date Reviewed: 10/19/2024 Reviewed by: Maricruz Camp APRN.NEWSSTAND VENDOR - Fully Assessed Visit Diagnosis:Encounter for screening mammogram for breast cancer [Z12.31] Order(s):[facility] SCREENING [facility] [[id number]] Order #: [id number] FUTURE Prescriptions as of 10/26/2024 - triamterene-hydroCHLOROthiazide (DYAZIDE) 37.5-25 mg per capsule Take 1 capsule by mouth once daily. - amLODIPine (NORVASC) 10 mg tablet Take 1 tablet by mouth once daily. - lnxxfcvgjye-jygzrcrrt-xspfnpqc (TRELEGY ELLIPTA) 100-62.5-25 mcg inhalation powder USE [...] ectasia (HCC) [I77.810] 03/13/2024 Encounter Status:Closed by ARIANNA BOO on 10/26/24[facility] 10-20-2024 NoteHNO ID: [id number] Author: MARICRUZ CAMP APRN.NEWSSTAND VENDOR Service: ? Author Type: Nurse Practitioner Type: Progress Notes Filed: 10/20/2024 09:25 Note Text: [facility] POP LUNG CANCER SCREENING FOLLOWUP ADVANCED: Diagnosis: Lung Nodule Recommendation: CT Scan Follow Up Due Date: 01/18/2025 All Follow Up Scheduled: No Pulmonary Follow Up Type: Lung Nodule Surveillance Patient should be added to the Lung Cancer Screening Followup Report: Yes Lung Cancer Screening Program [facility] 10-20-2024 History of Present illness Narrative* Maricruz Camp APRN.CNP - 10/20/2024 9:25 AM EST [facility] POP LUNG CANCER SCREENING FOLLOWUP ADVANCED: Diagnosis: Lung Nodule Recommendation: CT Scan Follow Up Due Date: 01/18/2025 All Follow Up Scheduled: No Pulmonary Follow Up Type: Lung Nodule Surveillance Patient should be added to the Lung Cancer Screening Followup Report: Yes Lung Cancer Screening Program Location: [facility] documented in this encounterAdams County Hospital12-23-2024 Instructions* Patient Instructions* Maricruz Camp APRN.CNP - 10/19/2024 2:51 PM EST There are new inflammatory opacities. Recommend follow up CT lung in 3 months. Maricruz Camp APRN.CNP documented in this encounterAdams County Hospital12-23-2024 NoteHNO ID: [id number] Author: MARICRUZ CAMP APRN.CNP Service: ? Author [...] which included preparing to see the patient, nofq-nh-ttgt patient care, completing clinical documentation, performing a medically appropriate examination, counseling and educating the patient/family/caregiver, ordering medications, tests, or procedures, communicating with other HCPs (not separately reported), independently interpreting results (not separately reported), communicating results to the patient/family/caregiver, and care coordination (not separately reported). Maricruz Camp APRN.[facility] October 19, 2024 10:28 AM History [...] albuterol if feeling sick. Modified [employer] Research [place] Dyspnea Scale (MMRC) I am too breathless [...] disease) (HCC) 02/03/2010 Coronary artery disease No SD, CHF. No heart cath. Diverticulosis of colon (without mention of hemorrhag (more content not included)...[facility]12-23-2024 History of Present illness Narrative* Maricruz Camp APRN.NEWSSTAND VENDOR - 10/19/2024 10:27 AM EST Images from [...] which included preparing to see the patient, ichs-gc-ngap patient care, completing clinical documentation, performing a medically appropriate examination, counseling and educating the patient/family/caregiver, ordering medications, tests, or pr ocedures, communicating with other HCPs (not separately reported), independently interpreting results (not separately reported), communicating results to the patient/family/caregiver, and care coordination (not separately reported). Maricrzu Camp APRN.[facility] October 19, 2024 10:28 AM History [...] albuterol if feeling sick. Modified Medical Research [place] Dyspnea Scale (MMRC) I am too breathless [...] disease) (HCC) 02/03/2010 Coronary artery disease No SD, CHF. No heart cath. Diverticulosis of colon [...] DATE OF EXAM: Oct 08 2023 1:24PM [facility] 0562 - CT LUNG SCREEN WO [facility] / PROCEDURE REASON: Former cigarette smoker * [...] without contrast. MQ: CTLCS_6 Patient characteristics: * Laen-fm-Kjuqy: 1955; Age at exam: 68 years * Gender: Female * Lung Disease: Asymptomatic (no signs or symptoms of lung disease) * Number of Pack Years: 38 * Current smoker (=0) or Number of Years since Quit: 14 * Ordering provider and NPI: MARICRUZ CAMP [id number] * Interpreting radiologist and NPI: Nicole [id number] Exam acquisition parameters: * Exam Date: 10/08/2023 1:24 PM * Site: [facility] * * CT System Distribution Center Administrator: Siemens * CT System Model: Sensation * [...] CT Chest - Impression Only CT CHEST WO IVCON Exam End: 08/29/2022 10:32 AM (Final result) [...] ... Pulmonary Function Testing: SPIROMETRY BASELINE ONLY ([id number]) - ordered on 03/16/22 No textual results for order. documented in this encounterAdams County Hospital12-23-2024 History of Present illness Narrative* Jes Galaviz [...] PATIENT PRESENTS WITH AN IMPLANTABLE OR ATTACHED PROPERTY ADMINISTRATOR: No RADIOLOGY DEPARTMENT: CT; Exam(s) Completed: Lung Screening PERIPHERAL IV DATA: Not applicable SIGNED BY: RT Flower(R) October 19, 2024 12:24 PM documented in this encounterAdams County Hospital12-23-2024 NoteHNO ID: [id number] Author: JES GALAVIZ RT(R) Service: ? Author Type: Warning Analyst Type: Progress Notes Filed: 10/19/2024 12:24 [...] PATIENT PRESENTS WITH AN IMPLANTABLE OR ATTACHED PROPERTY ADMINISTRATOR: No RADIOLOGY DEPARTMENT: CT; Exam(s) Completed: Lung Screening PERIPHERAL IV DATA: Not applicable SIGNED BY: RT Flower(Tarun) October 19, 2024 12:24 [facility]09-20-2024 Telephone encounter Note* Telephone Encounter - Vero [...] Lockett LPN July 17, 2024 2:19 PM [facility]09-20-2024 Miscellaneous Notes* Telephone Encounter - Vero Lockett [...] 17, 2024 2:19 PM documented in this encounterAdams County Hospital08-30-2024 History of Present illness Narrative* Diana Gonzalez MD - 06/26/2024 11:45 AM EDT Images from the original note were not included. . [facility] [place] Note Patient name: Lisa Lucero PCP: Phuc Martines DO CC: Follow-up COPD HPI: Lisa Lucero 68 year old female former 46-ggtt-edjy smoker, quitting in 2008 with PMH significant [...] DATE OF EXAM: Oct 08 2023 1:24PM [facility] 0562 - CT LUNG SCREEN WO IVCON [...] No date: Coronary artery disease Comment: No SD, CHF. No heart cath. No date: Diverticulosis [...] Take 1 tablet by mouth once daily. zwcefurmokn-ijnqbjznw-lgszrzys (TRELEGY ELLIPTA) 100-62.5-25 mcg inhalation powder USE [...] mode ambulation 3. Former cigarette smoker -Former 15-qvav-siwo smoker with sequelae of emphysema -Continued abstinence -Participating in lung cancer screening program with CT due this September 4. Morbid obesity -BMI 43 -Weight loss advised 5. Lung nodule -Right upper lobe nodule stable since 2016 -No further surveillance imaging required Diana Gonzalez MD [facility] [place] documented in this encounterAdams County Hospital08-30-2024 NoteHNO ID: [id number] Author: DIANA GONZALEZ MD Service: ? Author Type: Physician Type: Progress Notes Filed: 06/26/2024 14:11 Note Text: . [facility] [place] Note Patient name: Lisa Lucero PCP: Phuc Martines DO CC: Follow-up COPD HPI: Lisa Lucero 68 year old female former 40-gjji-ojtu smoker, quitting in 2008 with PMH significant [...] DATE OF EXAM: Oct 08 2023 1:24PM [facility] 0562 - CT LUNG SCREEN WO IVCON [...] No date: Coronary artery disease Comment: No SD, CHF. No heart cath. No date: Diverticulosis [...] Take 1 tablet by mouth once daily. rfnulybscrl-pseeerylz-otomqzyp (TRELEGY ELLIPTA) 100-62.5-25 mcg inhalation powder USE [...] nightsweats, unintended weight los (more content not included)...[facility]06-30-2024 History of Present illness Narrative* Damon Eugene APRN.[facility] - 04/26/2024 11:12 AM EDT Images from the original note were not included. Subjective Patient came in with complaints of possible wound infection on the right calf. Patient says she fell 2 weeks ago. Patient says she has been treating at home with antibiotic ointment. Patient denies any fever chills nausea vomiting. The history is provided by the patient. No speech and language tutor was used. Review of Systems Constitutional: [...] disease) (HCC) 02/03/2010 Coronary artery disease No SD, CHF. No heart cath. Diverticulosis of colon [...] Take 1 tablet by mouth once daily. muxksnviego-cwkgtldwr-ayglufbn (TRELEGY ELLIPTA) 100-62.5-25 mcg inhalation powder USE [...] was okay with this careplan. Damon Eugene APRN.NEWSSTAND VENDOR documented in this encounterAdams [facility] Hospital06-05-2024 Telephone encounter Note * Telephone Encounter - Erica Mckenzie LPN - 04/01/2024 9:51 AM EDT Pt. informed. [facility]06-05-2024 Miscellaneous Notes* Telephone Encounter - Erica Foote [...] asking for recommendation. If script sent, [facility] [place]. Aileen Mcdonnell RN documented in this encounterAdams County Hospital06-05-2024 Telephone encounter Note * Telephone Encounter - Phuc Martines DO - 04/01/2024 8:58 AM EDT Okay to wait on chest xray if symptoms continue to improve. If start to worsen again, then need forCXR rx for Diflucan sent in for her for vagina and thrush symptoms Phuc Martines DO [facility]06-03-2024 Telephone encounter Note* Telephone Encounter - Aileen [...] script sent, [facility]. Aileen Mcdonnell RN [facility]05-17-2024 History of Present illness Narrative* Phuc Martines DO - 03/13/2024 1:19 PM EDT CC: [...] disease) (HCC) 02/03/2010 Coronary artery disease No SD, CHF. No heart cath. Diverticulosis of colon [...] Take 1 tablet by mouth once daily. ioakswmvjvp-qiabgkdtj-ixaxyyny (TRELEGY ELLIPTA) 100-62.5-25 mcg inhalation powder USE [...] bronchitis with chronic obstructive pulmonary disease (COPD) ([facility]) ([facility]) - ICD9: 491.22, ICD10: J44.0, J20.9 (primary diagnosis) Start on rx as below Continue inhalers and IS use F/u with CXR if not improving as well as with floorworker lasting - DOXYCYCLINE HYCLATE 100 MG TABLET - AMOXICILLIN 875 MG-POTASSIUM CLAVULANATE 125 MG TABLET - PREDNISONE 10 MG TABLET - XR CHEST 2V FRONTAL/LAT 2. Chronic obstructive pulmonary disease, unspecified COPD type ([facility]) - ICD9: 496, ICD10: J44.9 Start on rx as below Continue inhalers and IS use F/u with CXR if not improving as well as with floorworker lasting - DOXYCYCLINE HYCLATE 100 MG TABLET - AMOXICILLIN 875 MG-POTASSIUM CLAVULANATE 125 MG TABLET - PREDNISONE 10 MG TABLET - XR CHEST 2V FRONTAL/LAT 3. Acute otitis media, left - ICD9: 382.9, ICD10: H66.92 Start on rx as below Continue inhalers and IS use F/u with CXR if not improving as well as with floorworker lasting - AMOXICILLIN 875 MG-POTASSIUM CLAVULANATE 125 MG [...] Stage 3 severe COPD by GOLD classification ([facility]) - ICD9: 496, ICD10: J44.9 See above [...] See patient instructions. Phuc Martines DO [address] [place] [address] documented in this encounterAdams County Hospital04-17-2024 Miscellaneous Notes* Telephone Encounter - Yuli Denton MA - 02/12/2024 12:08 PM EDT Patient has been identified by name and date of : Yes, Provider Conrad Date 02/12/2024 Time 1208pm Patient phones for refill(s): Requested Prescriptions Pending Prescriptions Disp Refills amLODIPine (NORVASC) 10 mg tablet 90 tablet 3 Sig: Take 1 tablet by mouth once daily. Date of last office visit in primary care: 08/14/2023 Date of next office visit in primary care: Visit date not found Please advise. Thank you. Yuli Denton MA. documented in this encounterAdams County Hospital04-03-2024 Instructions* Patient Instructions* Srikanth Estrada APRN.CNP - [...] 2 % TOPICAL OINTMENT documented in this encounterAdams County Hospital04-03-2024 History of Present illness Narrative* Srikanth Estrada [...] disease) (HCC) 02/03/2010 Coronary artery disease No SD, CHF. No heart cath. Diverticulosis of colon [...] BONY WISDOM TEETH ALLERGIES Aleve [Naproxen] MEDICATIONS lrxrxyywxrg-szvjvnvzq-vfwwjxbu (TRELEGY ELLIPTA) 100-62.5-25 mcg inhalation powder USE [...] MUPIROCIN 2 % TOPICAL OINTMENT Srikanth Estrada APRN.[facility] documented in this encounterAdams County Hospital02-29-2024 History of Present illness Narrative* Diana Gonzalez MD - 12/26/2023 11:45 AM EST Images from the original note were not included. . [facility] [place] Note Patient name: Lisa Lucero PCP: Phuc [...] k/uL 1.10 Monocytes % % 8.2 Abs [place] <0.87 k/uL 0.61 Eosinophils % % 2.3 Abs Eosin <0.46 k/uL 0.17 Basophils % % 0.8 Abs Baso <0.11 k/uL 0.06 Immature Granulocytes % % 0.5 Abs Immature Gran <0.10 k/uL 0.04 NRBC /100 WBC 0.0 Absolute nRBC <0.01 k/uL <0.01 Diff Type Auto Imaging / Diagnostic Studies: DATE OF EXAM: Oct 08 2023 1:24PM [facility] 0[facility] - CT LUNG SCREEN WO IVCON [...] disease) (HCC) 02/03/2010 Coronary artery disease No SD, CHF. No heart cath. Diverticulosis of colon (without mention of hemorrhage) Essential hypertension, benign Fibrocystic breast Former smoker Internal hemorrhoids without mention of complication Leiomyoma of uterus, unspecified Obstructive sleep apnea Mild. Not prescribed CPAP, only 2L nasal O2. ALLERGIES Allergen Reactions Aleve [Naproxen] Hives Hives, edema of hands within 1 hour of use ndwgzqcjgrq-wanjefntr-oayhirfn (TRELEGY ELLIPTA) 100-62.5-25 mcg inhalation powder USE [...] W/COLLJ SPEC WHEN PFRMD 08/27/08 repeat due 2018 COLONOSCOPY FLX DX W/COLLJ SPEC WHEN PFRMD [...] CT in September Diana Gonzalez MD [facility] [place] documented in this encounterAdams County Hospital02-27-2024 Miscellaneous Notes* Telephone Encounter - Basia Victor [...] Martines * Telephone Encounter - Khushboo Herbert Teodoro - 12/24/2023 9:55 AM EST Patient calling in requesting lab work to placed for her appt with Dr. Martines 03/13/24. Please review. Khushboo Herbert December 24, 2023 9:56 AM documented in this encounterAdams County Hospital12-12-2023 History of Present illness Narrative* Jes Galaviz RT(R) - 10/08/2023 1:00 PM EST Radiology [...] 08, 2023 2:12 PM documented in this encounterAdams County Hospital11-21-2023 History of Present illness Narrative* Baltazar Mosqueda Mammo Tech - 09/17/2023 9:30 AM EST Radiology Service [...] 17, 2023 9:26 AM documented in this encounterAdams County Hospital10-20-2023 Miscellaneous Notes* Telephone Encounter - Aissatou Whelan [...] diet. Phuc Martines DO documented in this encounterAdams County Hospital10-18-2023 History of Present illness Narrative* Phuc Martines [...] was in Aug 2022 and is seeing Edi Programmer Analyst and using her oxygen, appt with Dr. [...] disease) (HCC) 02/03/2010 Coronary artery disease No SD, CHF. No heart cath. Diverticulosis of colon [...] daily. Inhale via nebulizer over 5-15 minutes. mdrpcdqebho-fmiecjhby-tfgcblit (TRELEGY ELLIPTA) 100-62.5-25 mcg inhalation powder USE [...] See patient instructions. Phuc Martines DO [address] [place] [address] documented in this encounterAdams County Hospital10-02-2023 Miscellaneous Notes* Telephone Encounter - Amanda Pearson LPN - 07/29/2023 11:18 AM EDT ABRAHAM-- NOV--08/14/23 LAST REFILL--08/01/22 90 AND 3 REFILLS LAST LABS--07/30/22 documented in this encounterAdams County Hospital08-17-2023 Procedure note* Janki Ayala RPFT - 06/13/2023 [...] Finger 30 3 Wheel Walker None NAME: Janki YOAV Ayala PATIENT NAME: Lisa Lucero DATE: June 13, 2023 TIME: 1:02 PM Comment: documented in this encounterAdams County Hospital08-17-2023 History of Present illness Narrative* Hodan Christine PA-C - 06/13/2023 1:00 PM EDT Images from the original note were not included. Patient: Lisa Lucero PCP: Phuc Martines DO CC: follow up HPI: Lisa Lucero 67 year old morbidly obese female former 09-yfif-kvpo smoker, quitting 1970with PMH significant for COPD, [...] disease) (HCC) 02/03/2010 Coronary artery disease No SD, CHF. No heart cath. Diverticulosis of colon [...] daily. Inhale via nebulizer over 5-15 minutes. bjsvyiiaaye-fxjrjoocc-ttpsuewn (TRELEGY ELLIPTA) 100-62.5-25 mcg inhalation powder USE [...] cm in diameter. This has fluid attenuation. Language Asst (topogram) images: No additional findings. ASSESSMENT/PLAN: 1. [...] necessary. Hodan Christine PA-C documented in this encounterAdams County Hospital08-17-2023 History of Present illness Narrative* Janki Ayala RPFT - 06/13/2023 12:58 PM EDT PULM FUNCTION SMARTBLOCK: Provider: Hodan Christine PA-C Assisting Tech: Janki Ayala RPFT Oximetry - Ambulation: 1 documented in this encounterAdams County Hospital08-17-2023 Nurse Note* Isi Osorio LPN - 06/13/2023 12:53 PM EDT Intake information documented in the prior visit with YOAV López today. documented in this encounterAdams County Hospital08-03-2023 Miscellaneous Notes* Telephone Encounter - Lory Chavis [...] with Dr. Gonzalez or Sara sent to [facility] for O2 recert. Isi Osorio LPN [...] review and advise. Thank you. [place] # [phone] Patrizia Jolly LPN documented in this encounterAdams County Hospital02-07-2023 Miscellaneous Notes* Telephone Encounter - Claudia Ennis Ma - 12/04/2022 2:39 PM EST Last office visit: 09/28/22 F/u scheduled: 02/06/23 Claudia Ennis Ma * Telephone Encounter - Gwendolyn Melendez Pss - 12/04/2022 2:12 PM EST Patient has been identified by name and date of : Yes Requested Prescriptions Pending Prescriptions Disp Refills ipratropium-albuterol (DUONEB) 0.5 mg-3 mg(2.5 mg base)/3 mL nebu 120 Each 11 Sig: Inhale 3 mL as instructed four times daily. Inhale via nebulizer over 5-15 minutes. bzpzlqvzcfb-txxmqjflm-ougigbnm (TRELEGY ELLIPTA) 100-62.5-25 mcg inhalation powder 3 Each 3 Sig: USE 1 INHALATION DAILY INSTRUCTED RX INSTRUCTIONS: Patient aware RX will be sent to pharmacy. No need to notify patient. Gwendolyn Melendez Pss documented in this encounterAdams County Hospital12-28-2022 Miscellaneous Notes* Telephone Encounter - Yuli Britton [...] 1:25 PM EST Order placed. Pratibha King APRN.[facility] * Telephone Encounter - Yuli Britton Ma - 10/12/2022 10:[address] new order for home oxygen then will fax everything to number given. Yuli Britton Ma * Telephone Encounter - Yuli Britton Ma - 10/11/2022 12:15 PM EST Reports at my desk ready to fax Yuli Britton Ma documented in this encounterAdams County Hospital12-14-2022 Procedure note* YOAV López - 10/10/2022 11:15 [...] TIME: 11:15 AM Comment: documented in this encounterAdams County Hospital12-14-2022 History of Present illness Narrative* YOAV López - 10/10/2022 10:58 AM EST PULM FUNCTION SMARTBLOCK: Provider: Phuc Martines DO Assisting Tech: YOAV López Oximetry - Ambulation: 1 documented in this encounterAdams County Hospital12-02-2022 History of Present illness Narrative* Vonnie Smith [...] 28, 2022 1:09 PM documented in this encounterAdams County Hospital12-02-2022 Instructions* Patient Instructions* Pratibha King APRN.NEWSSTAND VENDOR - 09/28/2022 12:45 PM EST Start the [...] or things are worsening. documented in this encounterAdams County Hospital12-02-2022 History of Present illness Narrative* Pratibha King [...] Diagnosis Date COPD (chronic obstructive pulmonary disease) ([facility]) 02/03/2010 Coronary artery disease No SD, CHF. No heart cath. Diverticulosis of colon [...] hours as needed for wheezing/shortness of breath. nxhnxgbdfsl-rlnfujbho-bjtjorsk (TRELEGY ELLIPTA) 100-62.5-25 mcg inhalation powder USE [...] TABLET, EXTENDED RELEASE 12 HR Pratibha King APRN.ELVIA documented in this encounterAdams County Hospital11-28-2022 Miscellaneous Notes* Telephone Encounter - Phuc Martines DO - 09/24/2022 7:24 AM EST Paperwork states she needs to have ambulatory oxygen testing within 30 days. Please help her set upthese tests at [place] Phuc Martines DO * Telephone Encounter - Erica Mckenzie LPN - 09/14/2022 3:45 PM EST Information on your desk.. * Telephone Encounter - Phuc Martines DO - 09/12/2022 10:21 PM EST I don't have any of this information on my desk Phuc Martines DO * Telephone Encounter - Christy Galicia LPN - 09/12/2022 3:54 PM EST Malika from [facility] called regarding O2 orders. Malika is faxing another form with instructions that explains what is needed for pt to get O2 covered. The exertion testing with ambulation from February is too old, testing needs to be done within 30 days. Please watch for faxed form. Christy Galicia LPN documented in this encounterAdams County Hospital11-16-2022 Miscellaneous Notes* Letter - Mammography Coordinator - 09/12/2022 2:01 PM EST September 12, 2022 PID: [id number] Lisa Lucero [address] [place] [address] Dear Ms. Lucero, We are pleased to [...] report will be [facility] as part of your permanent medical record and are available for your continuing care. Thank you for allowing us to help in meeting your health care needs. Sincerely, Dr. Jameson Interpreting Radiologist [facility] (Normal over 40) documented in this encounterAdams County Hospital11-10-2022 Miscellaneous Notes* Telephone Encounter - Basia Victor RN - 09/06/2022 7:53 PM EST Pt called and is notified of providers results and instructions. Pt voices understanding. 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 We will repeat this test in 6 months to reassess. Please assist her to schedule this testing. Pratibha King APRN.CNP documented in this encounterAdams County Hospital11-07-2022 History of Present illness Narrative* Bella Rubalcava [...] 03, 2022 1:41 PM documented in this encounterAdams County Hospital11-04-2022 Miscellaneous Notes* Telephone Encounter - Kizzy Castellanos [...] her to schedule this appointment. Pratibha King APRN.ELVIA documented in this encounterAdams County Hospital11-02-2022 History of Present illness Narrative* Jes Galaviz, (R) - 08/29/2022 10:00 AM EDT Radiology Service [...] IV DATA: Not applicable SIGNED BY: RT lFower(R) August 29, 2022 3:39 PM documented in this encounterAdams County Hospital10-07-2022 Miscellaneous Notes* Telephone Encounter - Betina Gallardo Ma - 08/03/2022 9:38 AM EDT Office faxed for medicare requirement yearly most recent OV note from 08/01/22 to [facility]. F#: [phone]. Betina Gallardo Ma documented in this encounterAdams County Hospital10-05-2022 History of Present illness Narrative* Phuc Martines, - 08/01/2022 11:51 AM EDT CC: Lisa Lucero is a 66 year old female who presents to the office for follow up HPI: COPD, feels it is slowly stabilizing/improving compared to how she was feeling 6 months ago. Has had recent ECHO in the [address] chest was >15 months ago and is seeing Edi Programmer Analyst and using her oxygen, will be needing [...] 5.5 4.3 - 5.6 % Final Comment: [place] [employer] guidelines indicate that patients with HgbA1c in the range 5.7-6.4% are at increased risk for development of diabetes, and intervention by lifestyle modification may be beneficial. HgbA1c greater or equal to 6.5% is considered diagnostic of diabetes. 01/26/2022 6.1 (H) 4.3 - 5.6 % Final Comment: [place] [employer] guidelines indicate that patients with HgbA1c in the range 5.7-6.4% are at increased risk for development of diabetes, and intervention by lifestyle modification may be beneficial. HgbA1c greater or equal to 6.5% is considered diagnostic of diabetes. 04/28/2021 5.6 4.3 - 5.6 % Final Comment: [place] [employer] guidelines indicate that patients with HgbA1c in the range 5.7-6.4% are at increased risk for development of diabetes, and intervention by lifestyle modification may be beneficial. HgbA1c greater or equal to 6.5% is considered diagnostic of diabetes. 05/30/2020 5.6 4.3 - 5.6 % Final Comment: [place] [employer] guidelines indicate that patients with HgbA1c in the range 5.7-6.4% are at increased risk for development of diabetes, and intervention by lifestyle modification may be beneficial. HgbA1c greater or equal to 6.5% is considered diagnostic of diabetes. 05/15/2019 5.7 (H) 4.3 - 5.6 % Final Comment: [place] [employer] guidelines indicate that patients with [...] disease) (HCC) 02/03/2010 Coronary artery disease No SD, CHF. No heart cath. Diverticulosis of colon [...] hours as needed for wheezing/shortness of breath. gvvnvikqmnl-ijosdatzy-fwprmzxq (TRELEGY ELLIPTA) 100-62.5-25 mcg inhalation powder USE [...] oximetry testing as ordered, follow up with floorworker lasting as well. Needs to continue oxygen at [...] plan. See patient instructions. Phuc Martines DO [address] [place] [address] documented in this encounterAdams County Hospital10-05-2022 Instructions* Patient Instructions* Phuc Martines DO - 08/01/2022 11:00 AM EDT Vitamin B12 1,000 mcg a day in the morning supplement documented in this encounterAdams County Hospital09-08-2022 Miscellaneous Notes* Telephone Encounter - Isi Osorio LPN - 07/05/2022 8:45 AM EDT Order faxed. Isi Osorio LPN * Telephone Encounter - Isi Osorio LPN - 07/04/2022 2:21 PM EDT [facility] is requesting order for POC that goes to 6L as discussed at [facility] on 06/22. Patient has transitioned to Medicare as of 06/28. Isi Osorio LPN documented in this encounterAdams County Hospital06-02-2022 Miscellaneous Notes* Telephone Encounter - Isi Osorio LPN - 03/29/2022 3:00 PM EDT [facility] called, they did receive order and it is in the que to schedule. Isi Osorio LPN documented in this encounterAdams County Hospital05-20-2022 Procedure note* Janki Ayala, LEGAL CLERK - 03/16/2022 9:40 AM EDT Associated Order(s): [...] TIME: 9:40 AM Comment: documented in this encounterAdams County Hospital05-20-2022 History of Present illness Narrative* Janki Ayala RRT - 03/16/2022 9:33 AM EDT PULM FUNCTION SMARTBLOCK: Provider: Hodan Christine PA-C Assisting Tech: Janki Ayala RRT Spirometry: 1 Oximetry - Ambulation: 1 System: [id number] documented in this encounterAdams County Hospital05-20-2022 History of Present illness Narrative* Hodan Christine PA-C - 03/16/2022 9:24 AM EDT [facility] [place], 03/16/2022: Name: Lisa Lucero : 1955 The [...] patient today. IMMUNIZATIONS Prevnar - 09/28/2016 Pneumovax - 05/06/2017, 07/07/2008 Influenza - 08/15/2021 COVID- - 08/15/2021, 01/03/2021, 12/15/2020 ROS: General: Generally feels short of breath. Appetite good. Eyes, Ears, nose, throat: No post nasal drip, rhinorrhea, purulent nasal discharge. Cardiac: No angina, edema, orthopnea. GI: No heartburn, dysphagia, diarrhea. Uro/DRILL PRESS OPERATOR: No dysuria, hesitancy, nocturia. Musculoskeletal: No pain. [...] answers. Hodan Christine PA-C documented in this encounterAdams County Hospital05-20-2022 Nurse Note* Isi Osorio LPN - 03/16/2022 9:06 AM EDT Intake information documented in the prior visit with Janki Ayala RRT today. documented in this encounterAdams County Hospital05-11-2022 Miscellaneous Notes* Telephone Encounter - Karla Jacob LPN - 03/07/2022 11:36 AM EDT Patient phones requesting refills as follows: Pending Prescriptions Disp Refills AMLODIPINE 5 MG TABLET 90 tablet 1 Sig: Take 1 tablet by mouth once daily. LALY: No ABRAHAM-10/31/21 Labs-01/26/22 NOV-05/01/22 med filled 11/07/21 Please review and advise. Karla Jacob LPN documented in this encounterAdams County Hospital04-15-2022 History of Present illness Narrative* Hodan Christine PA-C - 02/09/2022 1:00 PM EDT [facility] [place], 02/09/2022: Name: Lisa Lucero : 1955 The [...] patient today. IMMUNIZATIONS Prevnar - 09/28/2016 Pneumovax - 05/06/2017, 07/07/2008 Influenza - 08/15/2021 COVID-19 [...] See #1. Obtain current echo. Last echo 2017. I suspect pulmonary HTN. 3. High index of suspicion for ROXY. Previous PSG in 2013 revealed mild ROXY. However, patient did not obtain REM sleep. Will obtain a split night study once we complete the echo and PFTs. Patient is hesitant to have another sleep study done. I addressed the questions of the patient, and she expressed understanding and acceptance of my answers. Hodan Christine PA-C documented in this encounterAdams County Hospital04-05-2022 History of Present illness Narrative* Phuc Martines DO - 01/30/2022 12:31 PM EDT CC: Lisa [...] disease) (HCC) 02/03/2010 Coronary artery disease No SD, CHF. No heart cath. Diverticulosis of colon [...] WISDOM TEETH Current Outpatient Medications Medication Sig dnoojvbjwee-guqogbxav-qytfobkd (TRELEGY ELLIPTA) 100-62.5-25 mcg inhalation powder USE [...] plan. See patient instructions. Phuc Martines DO [address] [place] [address] documented in this encounterAdams County Hospital03-16-2021 History of Present illness Narrative* Vonnie Smith (Rt), Elisha - 01/10/2021 11:10 AM EDT Radiology Service [...] 10, 2021 11:09 AM documented in this encounterAdams County Hospital07-23-2019 History of Past illness Narrative* Problem Noted Date Resolved Date Routine physical examination 05/19/2019 Screening for colon cancer 08/27/201810/13 Overview: Added automatically from request for surgery [id number] Acute bronchitis with chroni c obstructive pulmonary [...] of this encounter (statuses as of 01/30/2022) [facility] of Past illness Narrative* Problem Noted Date Resolved Date Routine physical examination 05/19/2019 Screening for colon cancer 08/27/201810/13 Overview: Added automatically from request for surgery [id number] Acute bronchitis with chroni c obstructive pulmonary [...] of this encounter (statuses as of 02/09/2022) [facility] History of Past illness Narrative* Problem Noted Date Resolved Date Routine physical examination 05/19/2019 Screening for colon cancer 08/27/201810/13 Overview: Added automatically from request for surgery [id number] Acute bronchitis with chroni c obstructive pulmonary [...] of this encounter (statuses as of 03/07/2022) [facility] History of Past illness Narrative* Problem Noted Date Resolved Date Routine physical examination 05/19/2019 Screening for colon cancer 08/27/201810/13 Overview: Added automatically from request for surgery [id number] Acute bronchitis with chroni c obstructive pulmonary [...] of this encounter (statuses as of 03/16/2022) [facility] History of Past illness Narrative* Problem Noted Date Resolved Date Routine physical examination 05/19/2019 Screening for colon cancer 08/27/201810/13 Overview: Added automatically from request for surgery [id number] Acute bronchitis with chroni c obstructive pulmonary [...] of this encounter (statuses as of 03/16/2022) [facility] History of Past illness Narrative* Problem Noted Date Resolved Date Routine physical examination 05/19/2019 Screening for colon cancer 08/27/201810/13 Overview: Added automatically from request for surgery [id number] Acute bronchitis with chroni c obstructive pulmonary [...] of this encounter (statuses as of 03/29/2022) [facility] History of Past illness Narrative* Problem Noted Date Resolved Date Routine physical examination 05/19/2019 Screening for colon cancer 08/27/201810/13 Overview: Added automatically from request for surgery [id number] Acute bronchitis with chroni c obstructive pulmonary [...] of this encounter (statuses as of 07/04/2022) [facility] History of Past illness Narrative* Problem Noted Date Resolved Date Routine physical examination 05/19/2019 Screening for colon cancer 08/27/201810/13 Overview: Added automatically from request for surgery [id number] Acute bronchitis with chroni c obstructive pulmonary [...] of this encounter (statuses as of 07/05/2022) [facility] History of Past illness Narrative* Problem Noted Date Resolved Date Routine physical examination 05/19/2019 Screening for colon cancer 08/27/201810/13 Overview: Added automatically from request for surgery [id number] Acute bronchitis with chroni c obstructive pulmonary [...] of this encounter (statuses as of 08/01/2022) [facility] History of Past illness Narrative* Problem Noted Date Resolved Date Routine physical examination 05/19/2019 Screening for colon cancer 08/27/201810/13 Overview: Added automatically from request for surgery [id number] Acute bronchitis with chroni c obstructive pulmonary [...] of this encounter (statuses as of 08/03/2022) [facility] History of Past illness Narrative* Problem Noted Date Resolved Date Routine physical examination 05/19/2019 Screening for colon cancer 08/27/201810/13 Overview: Added automatically from request for surgery [id number] Acute bronchitis with chroni c obstructive pulmonary [...] of this encounter (statuses as of 08/31/2022) [facility] History of Past illness Narrative* Problem Noted Date Resolved Date Routine physical examination 05/19/2019 Screening for colon cancer 08/27/201810/13 Overview: Added automatically from request for surgery [id number] Acute bronchitis with chroni c obstructive pulmonary [...] of this encounter (statuses as of 09/10/2022) [facility] History of Past illness Narrative* Problem Noted Date Resolved Date Routine physical examination 05/19/2019 Screening for colon cancer 08/27/201810/13 Overview: Added automatically from request for surgery [id number] Acute bronchitis with chroni c obstructive pulmonary [...] of this encounter (statuses as of 09/14/2022) [facility] History of Past illness Narrative* Problem Noted Date Resolved Date Routine physical examination 05/19/2019 Screening for colon cancer 08/27/201810/13 Overview: Added automatically from request for surgery [id number] Acute bronchitis with chroni c obstructive pulmonary [...] of this encounter (statuses as of 09/28/2022) [facility] History of Past illness Narrative* Problem Noted Date Resolved Date Routine physical examination 05/19/2019 Screening for colon cancer 08/27/201810/13 Overview: Added automatically from request for surgery [id number] Acute bronchitis with chroni c obstructive pulmonary [...] of this encounter (statuses as of 10/10/2022) [facility] History of Past illness Narrative* Problem Noted Date Resolved Date Routine physical examination 05/19/2019 Screening for colon cancer 08/27/201810/13 Overview: Added automatically from request for surgery [id number] Acute bronchitis with chroni c obstructive pulmonary [...] of this encounter (statuses as of 10/19/2022) [facility] History of Past illness Narrative* Problem Noted Date Resolved Date Routine physical examination 05/19/2019 Screening for colon cancer 08/27/201810/13 Overview: Added automatically from request for surgery [id number] Acute bronchitis with chroni c obstructive pulmonary [...] of this encounter (statuses as of 10/30/2022) [facility] History of Past illness Narrative* Problem Noted Date Resolved Date Routine physical examination 05/19/2019 Screening for colon cancer 08/27/201810/13 Overview: Added automatically from request for surgery [id number] Acute bronchitis with chroni c obstructive pulmonary [...] of this encounter (statuses as of 12/05/2022) [facility] History of Past illness Narrative* Problem Noted Date Diagnosed Date Resolved Date Routine physical examination 05/19/2019 10/13/2019 Screening for colon cancer 08/27/2018 1 12/14/2018 Overview: Added automatically from request for surgery [id number] Acute bronchitis with chroni c obstructive pulmonary [...] of this encounter (statuses as of 05/30/2023) [facility] History of Past illness Narrative* Problem Noted Date Diagnosed Date Resolved Date Routine physical examination 05/19/2019 10/13/2019 Screening for colon cancer 08/27/2018 1 12/14/2018 Overview: Added automatically from request for surgery [id number] Acute bronchitis with chroni c obstructive pulmonary [...] of this encounter (statuses as of 06/13/2023) [facility] History of Past illness Narrative* Problem Noted Date Diagnosed Date Resolved Date Routine physical examination 05/19/2019 10/13/2019 Screening for colon cancer 08/27/2018 1 12/14/2018 Overview: Added automatically from request for surgery [id number] Acute bronchitis with chroni c obstructive pulmonary [...] of this encounter (statuses as of 06/13/2023) [facility] History of Past illness Narrative* Problem Noted Date Diagnosed Date Resolved Date Routine physical examination 05/19/2019 10/13/2019 Screening for colon cancer 08/27/2018 1 12/14/2018 Overview: Added automatically from request for surgery [id number] Acute bronchitis with chroni c obstructive pulmonary disease (COPD) ([facility]) 11/06/2017 9 Well adult exam 11/09/2016 10/13/2019 [...] of this encounter (statuses as of 07/30/2023) [facility] History of Past illness Narrative* Problem Noted Date Diagnosed Date Resolved Date Routine physical examination 05/19/2019 10/13/2019 Screening for colon cancer 08/27/2018 1 12/14/2018 Overview: Added automatically from request for surgery [id number] Acute bronchitis with chroni c obstructive pulmonary [...] of this encounter (statuses as of 08/14/2023) [facility] History of Past illness Narrative* Problem Noted Date Diagnosed Date Resolved Date Routine physical examination 05/19/2019 10/13/2019 Screening for colon cancer 08/27/2018 1 12/14/2018 Overview: Added automatically from request for surgery [id number] Acute bronchitis with chroni c obstructive pulmonary [...] of this encounter (statuses as of 08/16/2023) [facility] History of Past illness Narrative* Problem Noted Date Diagnosed Date Resolved Date Routine physical examination 05/19/2019 10/13/2019 Screening for colon cancer 08/27/2018 1 12/14/2018 Overview: Added automatically from request for surgery [id number] Acute bronchitis with chroni c obstructive pulmonary [...] of this encounter (statuses as of 2023) [facility] History of Past illness Narrative* Problem Noted Date Diagnosed Date Resolved Date Routine physical examination 05/19/2019 10/13/2019 Screening for colon cancer 08/27/2018 1 12/14/2018 Overview: Added automatically from request for surgery [id number] Acute bronchitis with chroni c obstructive pulmonary [...] of this encounter (statuses as of 2023) [facility] History of Past illness Narrative* Problem Noted Date Diagnosed Date Resolved Date Routine physical examination 05/19/2019 10/13/2019 Screening for colon cancer 08/27/2018 1 12/14/2018 Overview: Added automatically from request for surgery [id number] Acute bronchitis with chroni c obstructive pulmonary [...] of this encounter (statuses as of 2023) [facility] History of Past illness Narrative* Problem Noted Date Diagnosed Date Resolved Date Routine physical examination 05/19/2019 10/13/2019 Screening for colon cancer 08/27/2018 1 12/14/2018 Overview: Added automatically from request for surgery [id number] Acute bronchitis with chroni c obstructive pulmonary [...] of this encounter (statuses as of 2023) [facility] History of Past illness Narrative* Problem Noted Date Diagnosed Date Resolved Date Routine physical examination 05/19/2019 10/13/2019 Screening for colon cancer 08/27/2018 1 12/14/2018 Overview: Added automatically from request for surgery [id number] Acute bronchitis with chroni c obstructive pulmonary [...] of this encounter (statuses as of 09/05/2023) [facility] History of Past illness Narrative* Problem Noted Date Diagnosed Date Resolved Date Routine physical examination 05/19/2019 10/13/2019 Screening for colon cancer 08/27/2018 1 12/14/2018 Overview: Added automatically from request for surgery [id number] Acute bronchitis with chroni c obstructive pulmonary [...] of this encounter (statuses as of 09/18/2023) [facility] History of Past illness Narrative* Problem Noted Date Diagnosed Date Resolved Date Routine physical examination 05/19/2019 10/13/2019 Screening for colon cancer 08/27/2018 1 12/14/2018 Overview: Added automatically from request for surgery [id number] Acute bronchitis with chroni c obstructive pulmonary [...] of this encounter (statuses as of 10/09/2023) [facility] History of Past illness Narrative* Problem Noted Date Diagnosed Date Resolved Date Routine physical examination 05/19/2019 10/13/2019 Screening for colon cancer 08/27/2018 1 12/14/2018 Overview: Added automatically from request for surgery [id number] Acute bronchitis with chroni c obstructive pulmonary disease (COPD) ([facility]) 11/06/2017 9 Well adult exam 11/09/2016 10/13/2019 [...] of this encounter (statuses as of 12/25/2023) [facility] History of Past illness Narrative* Problem Noted Date Diagnosed Date Resolved Date Routine physical examination 05/19/2019 10/13/2019 Screening for colon cancer 08/27/2018 1 12/14/2018 Overview: Added automatically from request for surgery [id number] Acute bronchitis with chroni c obstructive pulmonary disease (COPD) ([facility]) 11/06/2017 9 Well adult exam 11/09/2016 10/13/2019 [...] of this encounter (statuses as of 12/27/2023) [facility] History of Past illness Narrative* Problem Noted Date Diagnosed Date Resolved Date Routine physical examination 05/19/2019 10/13/2019 Screening for colon cancer 08/27/2018 1 12/14/2018 Overview: Added automatically from request for surgery [id number] Acute bronchitis with chroni c obstructive pulmonary [...] of this encounter (statuses as of 01/30/2024) [facility] History of Past illness Narrative* Problem Noted Date Diagnosed Date Resolved Date Routine physical examination 05/19/2019 10/13/2019 Screening for colon cancer 08/27/2018 1 12/14/2018 Overview: Added automatically from request for surgery [id number] Acute bronchitis with chroni c obstructive pulmonary [...] of this encounter (statuses as of 02/13/2024) [facility]an Rod[facility] Note Date/Time February 23, 2025 2:1 2pm [facility] Medical Records Department [address] [place] [address] Counseling Note - Pharmacy 02/23/25 1410 MR#: [id number] Acct: [id number] Name: LISA LUCERO Rep #:[id number] 23 : 1955 69 From: Brandan Rodas PCP: Dr. Phuc Martines, DO Status:AD M IN Y [id number] Service has performed discharge [...] understanding of their dischargemedications. Patient counseled by construction specialist, Pete. Medications at Discharge Home Medications [...] sodium chloride 0.65 % nasal spray aerosol ([place] Saline) 1 spray intranasal BID PRN dry [...] Signature (if applicable): Date CC: ~ Signed [facility] Work Phone: Evaluation note* Diagnosis Chronic obstructive pulmonary disease, unspecified COPD type (HCC)- Primary Essential hypertension Unspecified essential hypertension Impaired fasting glucose Dyslipidemia Other and unspecified hyperlipidemia Vitamin D deficiency Unspecified vitamin D deficiency Lightheaded Dizziness and giddiness [facility] Diagnosis Chronic obstructive pulmonary disease, unspecified COPD type (HCC)- Primary Dyspnea and respiratory abnormalities Other dyspnea and respiratory abnormality [facility] Diagnosis Chronic obstructive pulmonary disease, unspecified COPD type (HCC) [facility]* Diagnosis Chronic obstructive pulmonary disease, unspecified COPD type (HCC) documented in this encounter [facility] note* Diagnosis Chronic obstructive pulmonary disease, unspecified COPD type (HCC)- Primary Chronic hypoxemic respiratory failure (HCC) Chronic respiratory failure Dyspnea and respiratory abnormalities Other dyspnea and respiratory abnormality Former smoker Personal history of tobacco use, presenting hazards to health [facility] Diagnosis Chronic obstructive pulmonary disease, unspecified COPD type (HCC)- Primary [facility] Diagnosis Chronic obstructive pulmonary disease, unspecified COPD type (HCC)- Primary Essential hypertension Unspecified essential hypertension Need for influenza vaccination Need for prophylactic vaccination and inoculation against influenza Impaired fasting glucose Dyslipidemia Other and unspecified hyperlipidemia Chronic respiratory failure with hypoxia (HCC) Chronic respiratory failure Stage 3 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) Oxygen dependent Dependence on supplemental oxygen [facility] Diagnosis Cyst of spleen- Primary Other diseases of spleen [facility] Diagnosis Encounter for screening mammogram for breast cancer [facility] Diagnosis COVID- Primary Chronic obstructive pulmonary disease, unspecified COPD type (HCC) Bacterial sinusitis Unspecified sinusitis (chronic) Oxygen dependent Dependence on supplemental oxygen [facility] Diagnosis Chronic obstructive pulmonary disease, unspecified COPD type (HCC) Oxygen dependent Dependence on supplemental oxygen [facility] Diagnosis Cyst of spleen- Primary Other diseases of spleen [facility] Diagnosis Chronic obstructive pulmonary disease, unspecified COPD type (HCC)- Primary Oxygen dependent Dependence on supplemental oxygen [facility] Diagnosis Chronic obstructive pulmonary disease, unspecified COPD type (HCC) [facility] Diagnosis Chronic obstructive pulmonary disease, unspecified COPD type (HCC)- Primary Oxygen dependent Dependence on supplemental oxygen [facility] Diagnosis Chronic obstructive pulmonary disease, unspecified COPD type (HCC) Oxygen dependent Dependence on supplemental oxygen [facility] Diagnosis COPD, severe (HCC)- Primary Chronic airway obstruction, not elsewhere classified Chronic hypoxemic respiratory failure (HCC) Chronic respiratory failure Former cigarette smoker Personal history of tobacco use, presenting hazards to health Morbid obesity (HCC) Morbid obesity [facility] Essential hypertension Unspecified essential hypertension [facility] Diagnosis Essential hypertension- Primary Unspecified essential [...] (HCC) Oxygen dependent Dependence on supplemental oxygen Fatigue, unspecified type Rash of foot Dyslipidemia Other and unspecified hyperlipidemia [facility]* Diagnosis Encounter for screening mammogram for breast cancer documented in this encounter [facility] note* Diagnosis Cyst of spleen Other diseases of spleen [facility]* Diagnosis Chronic obstructive pulmonary disease, unspecified COPD type (HCC) Chronic respiratory failure with hypoxia (HCC) Chronic respiratory failure Stage 3 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) Oxygen dependent Dependence on supplemental oxygen [facility]* Diagnosis Cyst of spleen Other diseases of spleen [facility]* Diagnosis Chronic obstructive pulmonary disease, unspecified COPD type (HCC)- Primary Oxygen dependent Dependence on supplemental oxygen documented in this encounter [facility] note* Diagnosis Encounter for screening mammogram for malignant neoplasm of breast Other screening mammogram [facility]* Diagnosis Former cigarette smoker Personal history of tobacco use, presenting hazards to health [facility]* Diagnosis Dyslipidemia- Primary Other and unspecified hyperlipidemia Impaired fasting glucose documented in this encounter [facility] note* Diagnosis Stage 3 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)- Primary Chronic respiratory failure with hypoxia (HCC) Chronic respiratory failure Morbid obesity with BMI of 45.0-49.9, adult (HCC) Morbid obesity Lung nodules Other nonspecific abnormal finding of lung field documented in this encounter [facility] note* Diagnosis Skin infection- Primary Unspecified local infection of skin and subcutaneous tissue documented in this encounter [facility] note* Diagnosis Acute bronchitis with chronic obstructive pulmonary disease (COPD) (HCC) (HCC)- Primary Obstructive chronic bronchitis with acute bronchitis Chronic obstructive pulmonary disease, unspecified COPD type (HCC) Acute otitis media, left Unspecified otitis media Dyslipidemia Other and unspecified hyperlipidemia Impaired fasting glucose Vitamin D deficiency Unspecified vitamin D deficiency Essential hypertension Unspecified essential hypertension Stage 3 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) Fatigue, unspecified type Oxygen dependent Dependence on supplemental oxygen Morbid obesity with BMI of 45.0-49.9, adult (HCC) Morbid obesity Thoracic aortic ectasia (HCC) Thoracic aortic ectasia [facility]* Diagnosis Stage 3 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)- Primary Chronic hypoxemic respiratory failure (HCC) Chronic respiratory failure Former cigarette smoker Personal history of tobacco use, presenting hazards to health Morbid obesity (HCC) Morbid obesity [facility]* Diagnosis Essential hypertension Unspecified essential hypertension [facility] Diagnosis COVID Bacterial sinusitis Unspecified sinusitis (chronic) Chronic obstructive pulmonary disease, unspecified COPD type (HCC) [facility] Diagnosis Acute gout involving toe of right foot, unspecified cause [facility] Diagnosis Multiple lung nodules- Primary Other nonspecific abnormal finding of lung field Encounter for screening for lung cancer Former tobacco use Personal history of tobacco use, presenting hazards to health [facility]* Diagnosis Former cigarette smoker Personal history of tobacco use, presenting hazards to health [facility]* Diagnosis Encounter for screening mammogram for breast cancer [facility]* Diagnosis Dyslipidemia- Primary Other and unspecified hyperlipidemia Chronic obstructive pulmonary disease, unspecified COPD type (HCC) Impaired fasting glucose [facility]* Diagnosis Encounter for screening mammogram for breast cancer [facility]* Diagnosis Stage 3 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)- Primary Chronic respiratory failure with hypoxia (HCC) Chronic respiratory failure Former cigarette smoker Personal history of tobacco use, presenting hazards to health [facility]* Diagnosis Medicare annual wellness visit, subsequent- Primary Routine general medical examination at a health care facility Hair thinning Alopecia, unspecified Fatigue, unspecified type Impaired fasting glucose Dyslipidemia Other and unspecified hyperlipidemia Vitamin D deficiency Unspecified vitamin D deficiency Stage 3 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) Essential hypertension Unspecified essential hypertension Oxygen dependent Dependence on supplemental oxygen Morbid obesity with BMI of 45.0-49.9, adult (HCC) Morbid obesity documented in [facility] Diagnosis Multiple lung nodules- Primary Other nonspecific abnormal finding of lung field Former tobacco use Personal history of tobacco use, presenting hazards to health documented [facility] Diagnosis Lung nodules- Primary Other nonspecific abnormal finding of lung field documented [facility] Diagnosis Hospital discharge follow-up- Primary Other follow-up examination Atrial flutter, unspecified type (HCC) Congestive heart failure, unspecified HF chronicity, unspecified heart failure type (HCC) Stage 3 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) Oxygen dependent Dependence on supplemental oxygen Essential hypertension Unspecified essential hypertension [facility] Diagnosis Daytime sleepiness- Primary Stage 3 severe COPD by GOLD classification ([facility]) Chronic respiratory failure with hypoxia (HCC) Chronic respiratory failure [facility]* Diagnosis Essential (primary) hypertension Unspecified essential hypertension Atrial flutter, unspecified type (HCC) documented in this encounter [facility] note* Diagnosis Acute cystitis with hematuria Acute cystitis Candidal intertrigo Candidiasis of skin and nails Confusion Unspecified psychosis documented in this encounter [facility] note* Diagnosis Acute confusion- Primary Delirium due to conditions classified elsewhere Atrial flutter, unspecified type (HCC) Tachycardia Tachycardia, unspecified Stage 3 severe COPD by GOLD classification ([facility]) Congestive heart failure, unspecified HF chronicity, unspecified heart failure type ([facility]) Hypersomnia Hypersomnia, unspecified Hives Urticaria, unspecified Abnormal pulse oximetry Abnormal arterial blood gases [facility] Author Virginia Henriquez [facility] Note Date/Time April 23, 2025 10:1 5pm [facility] Medical Records Department [address] [place] [id number] H&P Exam - Hospitalist 04/23/25 3901 MR#: [id number] Acct: [id number] Name: LISA LUCERO Rep #:[id number] 14 : 1955 69 From: Virginia Henriquez MD PCP: Dr. 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, Morbid obesity, PAF/Flutter, HTN, HLD, COPD w/ Chronic Hypoxic Respiratory Failure (3L-6L NC, she notes primarily 3.5 to 4 L at rest and up to 6 L with activity, uses similarly 3.5 to 4 L at bedtime also), Former tobacco use, ROXY not on PAP therapy, EtOH abuse recently cut back [facility] with history of increased dyspnea above her baseline with underlying history of chronic dyspnea worse with any exertion with no recent URItype illness or increased productive cough with onset of fever Saturday of with mild nasal congestion at that time prompting urgent care evaluation with also concern for urinary tract infection started on Macrobid however the urine culture resulted negative with PCP reevaluation in the office on day of presentation with heart rate at that time noted to be 129 prompting ED evaluation to be cautious. She also notes that recently following 1 dose of Macrobid she did have onset of diffuse patchy erythematous rash without significant pruritus or raised noted to be blanching which she thought was a reaction specifically given timeline. Workup in the ED included T99.3, heart rate 129, BP 133/96, respiratory rate 20, 90% on nasal cannula 3.5 L with most heart rate going down in the ED to 89 however most recent repeat vitals with heart rate 126, BP 156/92, respiratory rate 24, 94% on 3.5 L nasal cannula, CBC with WC 9.0, hemoglobin 12.7, platelet 285 with lymphopenia, BMP with chloride 96, carbon oxide 38, BUN/creatinine 14/0.65, GFR 97, glucose 110, troponin initial less than 6 with repeat delta less than 6, urinalysis with specific gravity 1.015, protein 30, ketones 50, occult blood negative, nitrate negative, leukocyte esterase 25 with urine WBCs 10-25 however urine squamous epithelial cells also noted to be 5-10 with 2+ urine bacteria, chest x-ray with cardiomegaly with mild congestion, CT brain with no acute intracranial finding with mild small vessel ischemic/degenerative changes, EKG PAFlutter w/ RVR. In the ED patient administered diltiazem 25 mg IV bolus x 1 and placed on a diltiazem drip. COUNTS INCLUDE 234 BEDS AT THE [facility] Medical History (Updated 04/23/25 @ 22:[address] Virginia Henriquez MD) Pulmonary nodule Atrial flutter Shortness of breath ROXY (obstructive sleep apnea) Leiomyoma of uterus Internal hemorrhoids with complication Hypertension Diverticulosis of colon Chronic hypoxemic respiratory failure Alcohol abuse Former smoker On home oxygen therapy Irregular heart beat Atrial fibrillation COPD (chronic obstructive pulmonary disease) Home Medications ?Medication ?Instructions ?Recorded ?Last Taken ?Type Oxygen, Home [Home Oxygen] 2 - 4 lpm QHS 11/13/1701/27 History albuterol sulfate 90 mcg/actuation 2 inh inhalation Q6 H PRN shortness 02/19/25 Unknown History breath activated powder inhaler of breath fluticasone fur. 200 mcg-umeclid 1 ea inhalation DAILY sob 02/19/25 02/19/25 History 62.5 mcg-vilant 25 mcg [...] BID PRN dry 02/19/25 Unknown History aerosol ([place] Saline) nasal passages triamcinolone acetonide 0.5 % 1 applic topical BID PRN itching 02/19/25 Unknown History topical cream apixaban 5 mg tablet (Eliquis) 5 mg PO BID blood thinn er #60 tabs 02/23/25 Unknown Rx furosemide 40 mg tablet 40 mg PO BID diuretic #60 ta bs 02/23/25 Unknown Rx metoprolol tartrate 50 mg tablet 50 mg PO BID blood pr essure #60 02/23/25 Unknown Rx tabs potassium chloride 20 mEq 20 meq PO BID supplement #60 tabs 02/23/25 Unknown Rx tablet,extended release(part/cryst) (Klor-Con M) ascorbic acid (vitamin C) 500 mg 500 mg PO DAILY PRN 0 03/30/25 Unknown History capsule cinnamon bark 500 mg capsule 500 mg PO QDAY 03/30/25 U nknown History (Cinnamon) mecobalamin (vitamin B12) 1,000 1,000 mcg PO QDAY 01/19 Unknown History mcg chewable tablet nitrofurantoin 1 cap PO BID uti 04/23/25 Un known History monohydrate/macrocrystals 100 mg capsule nystatin 100,000 unit/gram topical 1 applic topical BI D skin rash 04/23/25 Unknown History cream Allergy/AdvReac Type Severity Reaction Status Date / Time ibuprofen (From Advil) Allergy Mild Hives Verified 04/23/25 16:17 nitrofurantoin (From Allergy Rash Verified 04/23/25 22:06 Macrobid) Family History Father Cancer Mother COPD (chronic obstructive pulmonary disease) Alcoholism Grandmother Hypertension Thyroid disorder Surgical History History of surgery History of colonoscopy History of lumpectomy of right breast Hx of inguinal herniorrhaphy Social History (Updated 04/23/25 @ 22:[address] Virginia Henriquez MD) household members: none Smoking Status: Former smoker how long ago did patient quit smoking: Quit 15 years prior, smoked 1 pack/day since she been 16 until she quit. alcohol intake: current alcohol intake frequency: 0-2 drinks per day Alcohol type: hard liquor details: Hard liquor mixed drinks, previously heavier, down to 2 drinks daily. substance use type: does not use caffeine: Yes ROS ROS Narrative Admission Review of Systems: CONSTITUTIONAL: No weight loss, chills. + Weakness or fatigue, recent fevers. HEENT: + Congestion. Eyes: No visual loss, blurred vision, double vision or yellow sclerae. Ears, Nose, Throat: No hearing loss, sneezing, sore throat. SKIN: No lesions, wounds. + Recent rash following Macrobid initiation. CARDIOVASCULAR: No chest pain, chest pressure or chest discomfort, palpitations,edema, orthopnea, syncopal events. RESPIRATORY: + Dyspnea worse with exertion. No recent marked productive cough, increased wheezing, hemoptysis. GASTROINTESTINAL: No anorexia, nausea, vomiting or diarrhea, abdominal pain, melena, BRBPR. GENITOURINARY: No dysuria, frequency, urgency or retention. NEUROLOGICAL: No headache, dizziness, syncope, paralysis, ataxia, numbness or tingling in the extremities, focal weakness, change in bowel or bladder control,seizure. MUSCULOSKELETAL: + muscle, back pain, joint pain or stiffness. HEMATOLOGIC: No anemia. + Easy bleeding/bruising. LYMPHATICS: No enlarged nodes. No history of splenectomy. PSYCHIATRIC: No history of depression or anxiety. ENDOCRINOLOGIC: No reports of sweating, cold or heat intolerance. No polyuria orpolydipsia. ALLERGIES: No history of asthma, hives, eczema or rhinitis. Vital Signs Vital Signs Vital Signs: 04/23/25 16:18 04/23/25 16:50 04/23/25 16:50 Temperature 99.3 F H Temperature Source Oral Pulse Rate 129 H 125 H Respiratory Rate 20 H 16 Respiratory Effort Blood Pressure 133/96 H Blood Pressure Mean 108 Pulse Ox 90 93 Oxygen Delivery Method Nasal Cannula Nasal Cannula Nasal Cannula Oxygen Flow Rate (L/min) 3.5 3.5 04/23/25 16:50 04/23/25 17:21 04/23/25 18:00 Temperature Temperature Source Pulse Rate 104 H 89 Respiratory Rate 24 H 22 H Respiratory Effort Short of Breath Blood Pressure 133/76 H 163/80 H Blood Pressure Mean 95 107 Pulse Ox 94 95 Oxygen Delivery Method Nasal Cannula Nasal Cannula Oxygen Flow Rate (L/min) 4 04/23/25 19:14 04/23/25 20:05 04/23/25 20:15 Temperature Temperature Source Pulse Rate 94 104 H 96 Respiratory Rate 16 22 H 29 H Respiratory Effort Blood Pressure 133/76 H 185/116 H Blood Pressure Mean 95 133 Pulse Ox 93 91 100 Oxygen Delivery Method Oxygen Flow Rate (L/min) 04/23/25 20:30 04/23/25 20:45 04/23/25 21:00 Temperature Temperature Source Pulse Rate 114 H 93 126 H Respiratory Rate 25 H 32 H 24 H Respiratory Effort Blood Pressure 174/154 H 193/118 H 156/92 H Blood Pressure Mean 162 141 113 Pulse Ox 94 92 94 Oxygen Delivery Method Nasal Cannula Oxygen Flow Rate (L/min) 3.5 Weight Weight: 255 lb Body Mass Index (BMI) 43.7 Physical Exam Narrative Physical Examination: General: Awake, alert, oriented x 3 and cooperative, laying in the ED bed, fatigued otherwise no acute distress. Skin: Normal color, normal turgor, no icterus, no cyanosis except for occasionalstage ecchymoses, abrasion, diffuse patchy erythematous blanching rash on all extremities and thorax, nonpruritic and again noted to have onset following her initial doses of Macrobid. HEENT: AT/NC, EOMI, PERRLA, MMM, no carotid bruits, difficult to discern JVD given very thickened neck. Lungs: Mildly diminished, greater bases, mildly increased respiratory rate but no distress, no appreciated rales, ronchi or wheezing. Heart: Irregular irregular; no gallop, rub audible. Abdomen: Soft, morbidly obese, NTTP, distant BS, difficult to discern distentionand HSM given habitus. Extremities: No cyanosis, no clubbing, no marked distal pitting edema noted, seeskin for description of diffuse patchy rash. Neurological: Patient awake, alert, oriented as noted, cognitive function intact; pupils equally reactive to light and accommodation, cranial nerves grossly normal, moving all 4 extremities, no focal deficits, strength moderatelyglobally decreased. Psychiatric: Affect appears fatigued otherwise normal, no acute evidence of depressive or anxiety feelings. Results Lab / Micro Data 04/23/25 17:50 04/23/25 17:50 Labs: Laboratory Results - last 24 hr 04/23/25 17:50: WBC 9.0, RBC 4.07 L, Hgb 12.7, Hct 40.2, MCV 98.8, MCH 31.2, MCHC 31.6 L, RDW Std Deviation 51.3 H, RDW Coeff of Karly 14.2, Plt Count 285, MPV 10.4, Immature Gran % (Auto) 0.300, Neut % (Auto) 83.8 H, Lymph % (Auto) 7.9 L, [place] % (Auto) 6.6, Eos % (Auto) 0.8, Baso % (Auto) 0.6, Absolute Neuts (auto) 7.6, Absolute Lymphs (auto) 0.71 L, Nucleated RBC % 0, Sodium 145, Potassium 3.9, Chloride 96 L, Carbon Dioxide 38.0 H, Anion Gap 10, BUN 14, Creatinine 0.65L, Estim Creat Clear Calc 85.20, Est GFR (MDRD) Non-Af 97, BUN/Creatinine Ratio 22.2 H, Glucose 110 H, Calcium 9.6, Troponin T High Sens < 6 04/23/25 19:50: Urine Color Yellow, Urine Clarity Clear, Urine pH 6.0, Ur Specific [place] 1.015, Urine Protein 30 H, Urine Glucose (UA) Normal, Urine Ketones 50 H, Urine Occult Blood Negative, Urine Nitrite Negative, Urine Bilirubin 1 H, Urine Urobilinogen 1 H, Ur Leukocyte Esterase 25 H, Urine RBC 0 SEEN, Urine WBC 10-25 SEEN, Ur Squamous Epith Cells 5-10 SEEN, Urine Bacteria 2+, Urine Mucus 2+ 06/27/25 19:55: Troponin T Hi Sens 2 Hr < 6 Imaging Radiology Impression Chest X-Ray 04/23/25 17:37 IMPRESSION: Cardiomegaly with mild congestion. Reading Location: [facility] Brain CT 04/23/25 18:04 IMPRESSION: 1. No acute intracranial hemorrhage, midline shift or mass effect. If symptoms persist, further evaluation with MRI is recommended. 2. Mild small vessel ischemic/degenerative changes. 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, Morbid obesity, PAF/Flutter, HTN, HLD, COPD w/ Chronic Hypoxic Respiratory Failure (3L-6L NC), Former tobacco use, ROXY not on PAP therapy, EtOH abuse recently cutting back [facility] with history of increaseddyspnea above her baseline with underlying history of chronic dyspnea worse withany exertion with no recent URI type illness or increased productive cough with onset of fever Saturday of 102 with mild nasal congestion at that time promptingurgent care evaluation with also concern for urinary tract infection started on Macrobid however the urine culture resulted negative with PCP reevaluation in the office on day of presentation with heart rate at that time noted to be 129 prompting ED evaluation to be cautious. #1. Acute dyspnea, progressively worsening secondary to likely #2 in addition to possible acute viral syndrome complicated by underlying chronic COPD with chronic hypoxic respiratory failure: Will admit to PCU given #2, will maintain on home oxygen supplementation, continue ATC budesonide especially given #2, PRNalbuterol only if absolutely necessary, encourage HOB, IS parameters, will obtain sputum Cx, respiratory viral panel, procalcitonin. #2. Paroxsymal atrial flutter w/ RVR with concern for possible associated mild overload as a result: EKG in ED w/ atrial flutter w/ RVR. Patient administered Cardizem bolus and eventually placed on a drip in ED. Will pulsed dose with Lasix 40 mg IV x 1, will maintain on telemetry, obtain cardiac enzyme serial set, obtain magnesium level, obtain TSH level. Most recent echocardiogram noted02/19/2025 with borderline LV systolic function with LVEF 45 to 50%, moderate global RV systolic dysfunction, mild biatrial dilatation, moderate MVI, mild TBI, RVSP 53 mmHg thus will defer repeating. Will continue Cardizem drip and home Eliquis regimen. Attempt transition once appropriate back to home BB therapy. If not responding may require Cardiology involvement. #3. Recent concern for UTI, complicated ruled out with possible Macrobid allergic reaction: Patient with evaluation on Saturday with concern for possibleUTI started on Macrobid however culture resulted negative per her report and shewas de- escalated off of Macrobid per her PCP. Discussed with nursing staff and will place Macrobid as a rash allergy. Discussed with patient we will continue to monitor. #4. EtOH Abuse, recently cutting back: She notes that her passed this last August and she did increase her alcohol not significantly but her ladle handler Dr. Elena did discuss this with her and she is now down to 2 alcoholic drinks daily however given the fact that she is a female a total of 14drinks weekly would be above the recommendation. To be cautious will maintain on CIWA protocol, MVI, thiamine and folic acid. #5. Hypertension: Continue home regimen including Lasix, metoprolol, IV Cardizem drip ongoing as noted with pulse IV Lasix 40 mg x 1 now, PRN hydralazine. #6. Hyperlipidemia: Noted history, not on regimen per current list, not listed as an allergy, FLP in AM. #7. Morbid Obesity: Weight loss and lifestyle changes encouraged. #8. History of VTE: Patient with history of DVT, PE, continue Eliquis home regimen. #9. Former tobacco use: Encourage continued tobacco cessation. #10. ROXY: Patient reports that she only uses supplemental oxygen, no PAP therapy. #11. DVT prophylaxis: Will continue patient on Eliquis regimen. #12. CODE status: Patient ARACELI is her daughter and living will is currently inplace. Discussed CODE status at length including difference between FULL code, DNR-CCA and DNR-CC status. Following discussions about the differences in these status, requested Full Code status. Advanced Care Planning Face to Face Time: 16minutes. Charges/Coding Visit Charges Inpatient E&M: 66959 Init Hosp L3 Procedures Hospitalists Procedures: 82162 Advncd Care Plan 30 Min 04/23/252214 <Electronically signed by Virginia Henriquez MD> Cosigner Signature (if applicable): CC: Dr. Virginia Henriquez MD; Dr. Phuc Martines, DO~ Signed [facility] Work Phone: Hospital Discharge instructionsAmbulatory Orders* Electrophysiology Location: None Selected [facility] Work Phone: Reason for referral (narrative)* Outpatient Procedure (Routine) - Authorized Specialty Diagnoses / Procedures Referred By Contac t Referred To [facility] Diagnoses Chronic obstructive pulmonary disease, unspecified COPD type (HCC) Procedures ECHO ECHO TTHRC R-T 2D W/WOM-MODE COMPL SPEC&COLR D Hodan Christine PA-C [address] [employer] [address] [address] [facility] [place] [address] [place] [id number] Referral ID Status Reason Start Date Expiration Date Visits Requested Visits Authorized [id number] Authorized Auto-Generat ed Referral OON/Self Pay Override 02/09/2022 02/09/2023 1 1 * Outpatient Procedure (Routine) - Authorized Specialty Diagnoses / Procedures Referred By Contac t Referred To Contact [facility] Diagnoses Chronic obstructive pulmonary disease, unspecified COPD type (HCC) Procedures OXIMETRY WITH AMBULATION NONINVASIVE EAR/PULSE OXIMETRY MULTIPLE Hodan Tejada PA-C [address] [employer] [address] [place] [address] [facility] [address] [place] [address] Referral ID Status Reason Start Date Expiration Date Visits Requested Visits Authorized [id number] Authorized Auto-Generat ed Referral OON/Self Pay Override 02/09/2022 03/11/2023 1 1 * Outpatient Procedure (Routine) - Authorized Specialty Diagnoses / Procedures Referred By Contac t Referred To Contact [facility] Diagnoses Chronic obstructive pulmonary disease, unspecified COPD type (HCC) Procedures SPIROMETRY BASELINE ONLY SPMTRY W/VC EXPIRATORY MARTIN W/WO MXML VOL VNTJ Hodan Christine PA-C [address] [address] [facility] [place] [address] [place] [address] Referral ID Status Reason Start Date Expiration Date Visits Requested Visits Authorized [id number] Authorized Auto-Generat ed Referral OON/Self Pay Override 02/09/2022 03/11/2023 1 1 [facility] for referral (narrative)* Diagnostic Procedure Only (Routine) - Authorized Specialty Diagnoses / Procedures Referred By Contac t Referred To Contact [facility] Diagnoses Cyst of spleen Procedures US ABD SPLEEN US ABDOMINAL REAL TIME W/IMAGE LIMITED Pratibha King APRN.CNP [address] [place] [address] [facility] Referral ID Status Reason Start Date Expiration Date Visits Requested Visits Authorized [id number] Authorized Auto-Generat ed Referral 08/30/2022 09/29/2023 1 1 [facility] for referral (narrative)* Diagnostic Procedure Only (Routine) - Authorized Specialty Diagnoses / Procedures Referred By Contac t Referred To Contact [facility] Diagnoses Encounter for screening mammogram for breast cancer Procedures ANUSHA SCREENING SCREENING MAMMOGRAPHY BI 2-VIEW BREAST INC Phuc Tejeda DO [address] [place] [address] [facility] [address] [place] [address] Referral ID Status Reason Start Date Expiration Date Visits Requested Visits Authorized [id number] Authorized Auto-Generat ed Referral 09/05/2022 10/05/2023 1 1 [facility] for referral (narrative)* Diagnostic Procedure Only (Routine) - Authorized Specialty Diagnoses / Procedures [facility] Diagnoses Cyst of spleen Procedures US ABD SPLEEN US ABDOMINAL REAL TIME W/IMAGE LIMITED Pratibha King APRN.CNP [address] [place] [address] [facility] Referral ID Status Reason Start Date Expiration Date Visits Requested Visits Authorized [id number] Authorized Auto-Generat ed Referral 03/06/2023 10/06/2023 1 1 [facility] for referral (narrative)* Outpatient Procedure (Routine) - Authorized Specialty Diagnoses / Procedures [facility] Diagnoses Chronic obstructive pulmonary disease, unspecified COPD type (HCC) Oxygen dependent Procedures OXIMETRY WITH AMBULATION NONINVASIVE EAR/PULSE OXIMETRY MULTIPLE DETER Hodan Christine PA-C [address] [place] [address] [facility] [address] [place] [address] Referral ID Status Reason Start Date Expiration Date Visits Requested Visits Authorized [id number] Authorized Auto-Generat ed Referral 05/30/2023 06/28/2024 1 1 [facility] for referral (narrative)* Diagnostic Procedure Only (Routine) - Authorized Specialty Diagnoses / Procedures [facility] To [facility] Diagnoses Encounter for screening mammogram for malignant neoplasm of breast Procedures ANUSHA SCREENING SCREENING MAMMOGRAPHY BI 2-VIEW [employer] Phuc Tejeda DO [address] [place] [address] [facility] [address] [place] [address] Referral ID Status Reason Start Date Expiration Date Visits Requested Visits Authorized [id number] Authorized Auto-Generat ed Referral 09/12/2024 1 1 [facility] for referral (narrative)* Diagnostic Procedure Only (Routine) - Closed Specialty Diagnoses / Procedures Referred By Contac t Referred To Contact [facility] Diagnoses Encounter for screening mammogram for breast cancer Procedures ANUSHA SCREENING SCREENING MAMMOGRAPHY BI 2-VIEW BREAST INC CAD Phuc Martines DO [address] [place] [address] [facility] [address] [place] [address] Referral ID Status Reason Start Date Expiration Date V isits Requested Visits Authorized [id number] Closed Auto-Generate d Referral 09/05/2022 10/05/2023 1 1 [facility] for referral (narrative)* Diagnostic Procedure Only (Routine) - Closed Specialty Diagnoses / Procedures Referred By Contac t Referred To Contact [facility] Diagnoses Cyst of spleen Procedures US ABD SPLEEN US ABDOMINAL REAL TIME W/IMAGE LIMITED Pratibha King APRN.[employer] [address] [place] [address] [place] [address] Referral ID Status Reason Start Date Expiration Date V isits Requested Visits Authorized [id number] Closed Auto-Generate d Referral 03/06/2023 10/06/2023 1 1 [facility] for referral (narrative)* Diagnostic Procedure Only (Routine) - Pending Review Specialty Diagnoses / Procedures Referred By Contac t Referred To Contact [facility] Diagnoses Cyst of spleen Procedures US ABD SPLEEN US ABDOMINAL REAL TIME W/IMAGE LIMITED Pratibha King APRN.[employer] V[employer]OR [address] [place] [address] [place] [address] Referral ID Status Reason Start Date Expiration Date Visits Requested Visits Authorized [id number] Pending Review Auto-Generat ed Referral 08/30/2022 09/29/2023 1 1 [facility] for referral (narrative)* Outpatient Procedure (Routine) - Closed Specialty Diagnoses / Procedures Referred By Sonaliac t Referred To [facility] Diagnoses Chronic obstructive pulmonary disease, unspecified COPD type (HCC) Oxygen dependent Procedures OXIMETRY WITH AMBULATION NONINVASIVE EAR/PULSE OXIMETRY MULTIPLE Phuc Maldonado DO [address] [place] [address] [facility] [place] [address] [place] [address] Referral ID Status Reason Start Date Expiration Date V isits Requested Visits Authorized [id number] Closed Auto-Generate d Referral 09/24/2022 10/24/2023 1 1 [facility] for referral (narrative)* Diagnostic Procedure Only (Routine) - Closed Specialty Diagnoses / Procedures Referred By Marcy t Referred To Contact [facility] Diagnoses Encounter for screening mammogram for malignant neoplasm of breast Procedures ANUSHA SCREENING SCREENING MAMMOGRAPHY BI 2-VIEW BREAST INC Phuc Tejeda DO [address] [place] [address] [facility] [address] [place] [address] Referral ID Status Reason Start Date Expiration Date V isits Requested Visits Authorized [id number] Closed Auto-Generate d Referral 08/14/2023 09/12/2024 1 1 [facility] for referral (narrative)* Diagnostic Procedure Only (Routine) - New Request Specialty Diagnoses / Procedures Referred By Contac t Referred To Contact [facility] Diagnoses Encounter for screening mammogram for breast cancer Procedures ANUSHA SCREENING W ASHLEY SCREENING DIGITAL BREAST TOMOSYNTHESIS BI SCREENING MAMMOGRAPHY BI 2-VIEW BREAST INC Phuc Tejeda, DO [address] [place] [address] [facility] [address] [place] [address] Referral ID Status Reason Start Date Expiration Date Visits Requested Visits Authorized [id number] New Request Auto-Generat ed Referral 11/20/2025 1 1 [facility] for referral (narrative)* Diagnostic Procedure Only (Routine) - Closed Specialty Diagnoses / Procedures Referred By Marcy t Referred To Contact [facility] Diagnoses Encounter for screening mammogram for breast cancer Procedures ANUSHA SCREENING W ASHLEY SCREENING DIGITAL BREAST TOMOSYNTHESIS BI SCREENING MAMMOGRAPHY BI 2-VIEW BREAST INC CAD Phuc Martines, DO [address] [place] [address] [facility] [address] [place] [address] Referral ID Status Reason Start Date Expiration Date V isits Requested Visits Authorized [id number] Closed Auto-Generate d Referral 10/21/2024 11/20/2025 1 1 [facility] for visit Narrative* Outpatient Procedure (Routine) - Closed Specialty Diagnoses / Procedures Referred By Marcy t Referred To [facility] Diagnoses Chronic obstructive pulmonary disease, unspecified COPD type (HCC) Oxygen dependent Procedures OXIMETRY WITH AMBULATION NONINVASIVE EAR/PULSE OXIMETRY MULTIPLE DETER Phuc Martines, DO [address] [place] [address] [facility] [place] [address] [place] [address] Referral ID Status Reason Start Date Expiration Date V isits Requested Visits Authorized [id number] Closed Auto-Generate d Referral 09/24/2022 10/24/2023 1 1 [facility] for visit Narrative* Diagnostic Procedure Only (Routine) - Closed Specialty Diagnoses / Procedures Referred By Marcy t Referred To Contact [facility] Diagnoses Encounter for screening mammogram for breast cancer Procedures ANUSHA SCREENING SCREENING MAMMOGRAPHY BI 2-VIEW BREAST INC CAD Phuc Martines, DO [address] [place] [address] [facility] [address] [place] [phone] Referral ID Status Reason Start Date Expiration Date V isits Requested Visits Authorized [id number] Closed Auto-Generate d Referral 09/05/2022 10/05/2023 1 1 [facility] for visit Narrative* Diagnostic Procedure Only (Routine) - Closed Specialty Diagnoses / Procedures Referred By Marcy t Referred To Contact [facility] Diagnoses Cyst of spleen Procedures US ABD SPLEEN US ABDOMINAL REAL TIME W/IMAGE LIMITED Pratibha King, [employer]AKI.[employer] [address] [place] [address] [place] [address] Referral ID Status Reason Start Date Expiration Date V isits Requested Visits Authorized [id number] Closed Auto-Generate d Referral 03/06/2023 10/06/2023 1 1 [facility] for visit Narrative* Diagnostic Procedure Only (Routine) - Closed Specialty Diagnoses / Procedures Referred By Marcy t Referred To Contact [facility] Diagnoses Encounter for screening mammogram for malignant neoplasm of breast Procedures ANUSHA SCREENING SCREENING MAMMOGRAPHY BI 2-VIEW BREAST INC CAD Phuc Martines, DO [address] [place] [address] [facility] [address] [place] [address] Referral ID Status Reason Start Date Expiration Date V isits Requested Visits Authorized [id number] Closed Auto-Generate d Referral 08/14/2023 09/12/2024 1 1 [facility] for visit Narrative* Diagnostic Procedure Only (Routine) - Closed Specialty Diagnoses / Procedures Referred By Marcy boudreaux Referred To Contact [facility] Diagnoses Encounter for screening mammogram for breast cancer Procedures ANUSHA SCREENING W ASHLEY SCREENING DIGITAL BREAST TOMOSYNTHESIS BI SCREENING MAMMOGRAPHY BI 2-VIEW BREAST INC CAD Phuc Martines L, DO [address] [place] [address] [facility] [address] [place] [address] Referral ID Status Reason Start Date Expiration Date V isits Requested Visits Authorized [id number] Closed Auto-Generate d Referral 10/21/2024 11/20/2025 1 1 [facility] Summary Purpose Family History Relationship Condition Age at Onset Recorded Date/T farooq Unknown Family History?COPD Unknown March 9:32pm Family History?COPD Unknown March 9:32pm Family History?Cancer Unknown March 282016 9:32pm Relationship Condition Age at Onset Recorded Date/T fraooq father Malignant neoplasm Unknown mother Chronic obstructive pulmonary disease Unk nown Alcoholism Unknown grandmother Hypertension Unknown Disorder of thyroid Unknown Advance Directives Documents on File Type Date Recorded Patient Machine Stuffer Expl anation Advance Directive(s) 09/10/2018 10:48 AM Documents on File Type Date Recorded Patient Machine Stuffer Expl anation Advance Directive(s) 09/10/2018 10:48 AM Advance Directive Response Recorded Date/ Time Do you have a Healthcare Power of Pr Specialist? No February 19, 2025 4:27pm Advance Directive Response Recorded Date/ Time Do you have a Healthcare Power of Pr Specialist? No February 19, 2025 4:27pm Do you have a Healthcare Power of Pr Specialist? No April 23, 2025 4:50pm Advance Directive Response Recorded Date/ Time Do you have a Healthcare Power of Pr Specialist? No February 19, 2025 4:27pm Do you have a Healthcare Power of Pr Specialist? Yes April 23, 2025 10:47pm Name of Medical Power of Pr Specialist Lizbet Alcazar April 23, 2025 10:47pm Reason for Referral Specialty Diagnoses / Procedures Referred By Contac t Referred To Contact CT IMAGING Diagnoses Chronic obstructive pulmonary disease, unspecified COPD type (HCC) Chronic respiratory failure with hypoxia (HCC) Stage 3 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) Oxygen dependent Procedures CT CHEST WO IVCON DIAGNOSTIC COMPUTED TOMOGRAPHY THORAX W/O CNTRST Phuc Martines L, DO [address] [place] [address] Ct Imaging Referral ID Status Reason Start Date Expiration Date Visits Requested Visits Authorized [id number] Authorized Auto-Generat ed Referral 08/01/2022 08/31/2023 1 1 Specialty Diagnoses / Procedures Referred By Contac t Referred To Contact CT IMAGING Diagnoses Chronic obstructive pulmonary disease, unspecified COPD type (HCC) Chronic respiratory failure with hypoxia (HCC) Stage 3 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) Oxygen dependent Procedures CT CHEST WO IVCON DIAGNOSTIC COMPUTED TOMOGRAPHY THORAX W/O CNTRST Phuc Martines L, DO [address] [place] [address] Ct Imaging [facility] Referral ID Status Reason Start Date Expiration Date V isits Requested Visits Authorized [id number] Closed Auto-Generate d Referral 08/01/2022 08/31/2023 1 1 Specialty Diagnoses / Procedures Referred By Contac t Referred To Contact CT IMAGING Diagnoses Lung nodules Procedures CT LUNG FOLLOWUP WO IVCON DIAGNOSTIC COMPUTED TOMOGRAPHY THORAX W/O CNTRST [facility], ACCURACY EXPERT.[employer] V[employer]OR [address] [place] [address] Ct Imaging [place] [address] Referral ID Status Reason Start Date Expiration Date Visits Requested Visits Authorized [id number] New Request Auto-Generat ed Referral 12/26/2024 11/18/2025 1 1 Specialty Diagnoses / Procedures Referred By Contac t Referred To Contact CT IMAGING Diagnoses Former cigarette smoker Procedures CT LUNG SCREEN WO IVCON COMPUTED TOMOGRAPHY THORAX LW DOSE LNG CA SCR C- [facility], ACCURACY EXPERT.[employer] V[employer]OR [address] [place] [address] Ct Imaging [place] [address] Referral ID Status Reason Start Date Expiration Date V isits Requested Visits Authorized [id number] Closed Auto-Generate d Referral 10/11/2023 11/09/2024 1 [...] HYPOXIA February 23, 2025 1:2 2pm S/P [facility] 02/23 (AFIB) March 30, 2025 11:2 4am Reason for Visit Admit Date Atrial flutter February 19, 2025 3:5 3pm Shortness of breath February 19, 2025 3:5 3pm Acute on chronic hypoxic respiratory deanna lure February 19, 2025 3:53pm Dyspnea on exertion February 19, 2025 3:5 3pm Atrial flutter March 30, 2025 11:24 am Chief Complaint Admit Date HYPOXIA February 19, 2025 3:5 3pm HYPOXIA February 20, 2025 8:0 7am HYPOXIA February 21, 2025 11: 44am HYPOXIA February 22, 2025 2:1 1pm HYPOXIA February 23, 2025 1:2 2pm S/P [facility] 02/23 (AFIB) March 30, 2025 11:2 4am PAFLUTTER W/RVR, ? ACUTE VIRAL SYNDROME April 23, 2025 9:51pm Reason for Visit Admit Date Atrial flutter February 19, 2025 3:5 3pm Shortness of breath February 19, 2025 3:5 3pm Acute on chronic hypoxic respiratory deanna lure February 19, 2025 3:53pm Dyspnea on exertion February 19, 2025 3:5 3pm Alcohol abuse March 30, 2025 11:24 am Atrial flutter March 30, 2025 11:24 am ROXY (obstructive sleep apnea) March 30, 2025 11:24am COPD (chronic obstructive pulmonary dise ase) March 30, 2025 11:24am Hypertension March 30, 2025 11:24 am Atrial flutter with rapid ventricular re sponse April 23, 2025 9:51pm Chief Complaint Admit Date HYPOXIA February 19, 2025 3:5 3pm HYPOXIA February 20, 2025 8:0 7am HYPOXIA February 21, 2025 11: 44am HYPOXIA February 22, 2025 2:1 1pm HYPOXIA February 23, 2025 1:2 2pm S/P [facility] 02/23 (AFIB) March 30, 2025 11:2 4am PAFLUTTER W/RVR, ? ACUTE VIRAL SYNDROME April 23, 2025 9:51pm PAFLUTTER W/RVR, ? ACUTE VIRAL SYNDROME April 24, 2025 8:10am PAFLUTTER W/RVR, ? ACUTE VIRAL SYNDROME April 25, 2025 9:03am PAFLUTTER W/RVR, ? ACUTE VIRAL SYNDROME April 26, 2025 9:32am PAFLUTTER W/RVR, ? ACUTE VIRAL SYNDROME April 27, 2025 11:13am Chief Complaint Admit Date HYPOXIA February 19, 2025 3:5 3pm Hypoxia February 20, 2025 8:0 7am Hypoxia February 21, 2025 11: 44am Hypoxia February 22, 2025 2:1 1pm Hypoxia February 23, 2025 1:2 2pm S/P [facility] 02/23 (AFIB) March 30, 2025 11:2 4am PAFLUTTER W/RVR, ? ACUTE VIRAL SYNDROME April 23, 2025 9:51pm PAFLUTTER W/RVR, ? ACUTE VIRAL SYNDROME April 24, 2025 8:10am PAFLUTTER W/RVR, ? ACUTE VIRAL SYNDROME April 25, 2025 9:03am PAFLUTTER W/RVR, ? ACUTE VIRAL SYNDROME April 26, 2025 9:32am PAFLUTTER W/RVR, ? ACUTE VIRAL SYNDROME April 27, 2025 11:13am EORDERS May 07, 2025 12:[address] Elena, see clinical note. May 07, 2025 1:02pm Reason for Visit Admit Date Atrial flutter February 19, 2025 3:5 3pm Shortness of breath February 19, 2025 3:5 3pm Acute on chronic hypoxic respiratory deanna lure February 19, 2025 3:53pm Dyspnea on exertion February 19, 2025 3:5 3pm Alcohol abuse March 30, 2025 11:24 am Atrial flutter March 30, 2025 11:24 am ROXY (obstructive sleep apnea) March 30, 2025 11:24am COPD (chronic obstructive pulmonary dise ase) March 30, 2025 11:24am Hypertension March 30, 2025 11:24 am Atrial flutter with rapid ventricular re sponse April 23, 2025 9:51pm Shortness of breath May 07, 2025 1:02 pm Additional Source Comments INFORMATION SOURCE (unrecogn ized section and content) DATE CREATED AUTHOR 10/05/2018 [facility] DATE CREATED AUTHOR AUTHOR'S ORGANIZ ATION 04/28/2025 [facility] DATE CREATED AUTHOR AUTHOR'S ORGANIZ ATION 04/28/2025 [facility] Source Comments (unrecognize d section and content) In the event this informatio n is protected by the Federal Confidentiality of Alcohol and Drug Abuse Patient Records regulations: The Federal rules restrict any use of the information to criminally investigate or prosecute any alcohol or drug abuse patient.[facility] the event this information is protected by the Federal Confidentiality of Alcohol and Drug Abuse Patient Records regulations: The Federal rules restrict any use of the information to criminally investigate or prosecute any alcohol or drug abuse patient.[facility] the event this information is protected by the Federal Confidentiality of Alcohol and Drug Abuse Patient Records regulations: The Federal rules restrict any use of the information to criminally investigate or prosecute any alcohol or drug abuse patient.[facility] the event this information is protected by the Federal Confidentiality of Alcohol and Drug Abuse Patient Records regulations: The Federal rules restrict any use of the information to criminally investigate or prosecute any alcohol or drug abuse patient.[facility] the event this information is protected by the Federal Confidentiality of Alcohol and Drug Abuse Patient Records regulations: The Federal rules restrict any use of the information to criminally investigate or prosecute any alcohol or drug abuse patient.[facility] the event this information is protected by the Federal Confidentiality of Alcohol and Drug Abuse Patient Records regulations: The Federal rules restrict any use of the information to criminally investigate or prosecute any alcohol or drug abuse patient.[facility] the event this information is protected by the Federal Confidentiality of Alcohol and Drug Abuse Patient Records regulations: The Federal rules restrict any use of the information to criminally investigate or prosecute any alcohol or drug abuse patient.[facility] the event this information is protected by the Federal Confidentiality of Alcohol and Drug Abuse Patient Records regulations: The Federal rules restrict any use of the information to criminally investigate or prosecute any alcohol or drug abuse patient.[facility] the event this information is protected by the Federal Confidentiality of Alcohol and Drug Abuse Patient Records regulations: The Federal rules restrict any use of the information to criminally investigate or prosecute any alcohol or drug abuse patient.[facility] the event this information is protected by the Federal Confidentiality of Alcohol and Drug Abuse Patient Records regulations: The Federal rules restrict any use of the information to criminally investigate or prosecute any alcohol or drug abuse patient.[facility]In the event this information is protected by the Federal Confidentiality of Alcohol and Drug Abuse Patient Records regulations: The Federal rules restrict any use of the information to criminally investigate or prosecute any alcohol or drug abuse patient.[facility]In the event this information is protected by the Federal Confidentiality of Alcohol and Drug Abuse Patient Records regulations: The Federal rules restrict any use of the information to criminally investigate or prosecute any alcohol or drug abuse patient.[facility]In the event this information is protected by the Federal Confidentiality of Alcohol and Drug Abuse Patient Records regulations: The Federal rules restrict any use of the information to criminally investigate or prosecute any alcohol or drug abuse patient.[facility]In the event this information is protected by the Federal Confidentiality of Alcohol and Drug Abuse Patient Records regulations: The Federal rules restrict any use of the information to criminally investigate or prosecute any alcohol or drug abuse patient.[facility]In the event this information is protected by the Federal Confidentiality of Alcohol and Drug Abuse Patient Records regulations: The Federal rules restrict any use of the information to criminally investigate or prosecute any alcohol or drug abuse patient.[facility] HospitalIn the event this information is protected by the Federal Confidentiality of Alcohol and Drug Abuse Patient Records regulations: The Federal rules restrict any use of the information to criminally investigate or prosecute any alcohol or drug abuse patient.[facility] HospitalIn the event this information is protected by the Federal Confidentiality of Alcohol and Drug Abuse Patient Records regulations: The Federal rules restrict any use of the information to criminally investigate or prosecute any alcohol or drug abuse patient.[facility] HospitalIn the event this information is protected by the Federal Confidentiality of Alcohol and Drug Abuse Patient Records regulations: The Federal rules restrict any use of the information to criminally investigate or prosecute any alcohol or drug abuse patient.[facility] HospitalIn the event this information is protected by the Federal Confidentiality of Alcohol and Drug Abuse Patient Records regulations: The Federal rules restrict any use of the information to criminally investigate or prosecute any alcohol or drug abuse patient.[facility] HospitalIn the event this information is protected by the Federal Confidentiality of Alcohol and Drug Abuse Patient Records regulations: The Federal rules restrict any use of the information to criminally investigate or prosecute any alcohol or drug abuse patient.[facility] HospitalIn the event this information is protected by the Federal Confidentiality of Alcohol and Drug Abuse Patient Records regulations: The Federal rules restrict any use of the information to criminally investigate or prosecute any alcohol or drug abuse patient.[facility] HospitalIn the event this information is protected by the Federal Confidentiality of Alcohol and Drug Abuse Patient Records regulations: The Federal rules restrict any use of the information to criminally investigate or prosecute any alcohol or drug abuse patient.[facility] HospitalIn the event this information is protected by the Federal Confidentiality of Alcohol and Drug Abuse Patient Records regulations: The Federal rules restrict any use of the information to criminally investigate or prosecute any alcohol or drug abuse patient.[facility] HospitalIn the event this information is protected by the Federal Confidentiality of Alcohol and Drug Abuse Patient Records regulations: The Federal rules restrict any use of the information to criminally investigate or prosecute any alcohol or drug abuse patient.[facility] HospitalIn the event this information is protected by the Federal Confidentiality of Alcohol and Drug Abuse Patient Records regulations: The Federal rules restrict any use of the information to criminally investigate or prosecute any alcohol or drug abuse patient.[facility] HospitalIn the event this information is protected by the Federal Confidentiality of Alcohol and Drug Abuse Patient Records regulations: The Federal rules restrict any use of the information to criminally investigate or prosecute any alcohol or drug abuse patient.[facility] HospitalIn the event this information is protected by the Federal Confidentiality of Alcohol and Drug Abuse Patient Records regulations: The Federal rules restrict any use of the information to criminally investigate or prosecute any alcohol or drug abuse patient.[facility] HospitalIn the event this information is protected by the Federal Confidentiality of Alcohol and Drug Abuse Patient Records regulations: The Federal rules restrict any use of the information to criminally investigate or prosecute any alcohol or drug abuse patient.[facility] HospitalIn the event this information is protected by the Federal Confidentiality of Alcohol and Drug Abuse Patient Records regulations: The Federal rules restrict any use of the information to criminally investigate or prosecute any alcohol or drug abuse patient.[facility] HospitalIn the event this information is protected by the Federal Confidentiality of Alcohol and Drug Abuse Patient Records regulations: The Federal rules restrict any use of the information to criminally investigate or prosecute any alcohol or drug abuse patient.[facility] HospitalIn the event this information is protected by the Federal Confidentiality of Alcohol and Drug Abuse Patient Records regulations: The Federal rules restrict any use of the information to criminally investigate or prosecute any alcohol or drug abuse patient.[facility]In the event this information is protected by the Federal Confidentiality of Alcohol and Drug Abuse Patient Records regulations: The Federal rules restrict any use of the information to criminally investigate or prosecute any alcohol or drug abuse patient.[facility] HospitalIn the event this information is protected by the Federal Confidentiality of Alcohol and Drug Abuse Patient Records regulations: The Federal rules restrict any use of the information to criminally investigate or prosecute any alcohol or drug abuse patient.[facility] HospitalIn the event this information is protected by the Federal Confidentiality of Alcohol and Drug Abuse Patient Records regulations: The Federal rules restrict any use of the information to criminally investigate or prosecute any alcohol or drug abuse patient.[facility] HospitalIn the event this information is protected by the Federal Confidentiality of Alcohol and Drug Abuse Patient Records regulations: The Federal rules restrict any use of the information to criminally investigate or prosecute any alcohol or drug abuse patient.[facility] HospitalIn the event this information is protected by the Federal Confidentiality of Alcohol and Drug Abuse Patient Records regulations: The Federal rules restrict any use of the information to criminally investigate or prosecute any alcohol or drug abuse patient.[facility] HospitalIn the event this information is protected by the Federal Confidentiality of Alcohol and Drug Abuse Patient Records regulations: The Federal rules restrict any use of the information to criminally investigate or prosecute any alcohol or drug abuse patient.[facility] HospitalIn the event this information is protected by the Federal Confidentiality of Alcohol and Drug Abuse Patient Records regulations: The Federal rules restrict any use of the information to criminally investigate or prosecute any alcohol or drug abuse patient.[facility] HospitalIn the event this information is protected by the Federal Confidentiality of Alcohol and Drug Abuse Patient Records regulations: The Federal rules restrict any use of the information to criminally investigate or prosecute any alcohol or drug abuse patient.[facility] HospitalIn the event this information is protected by the Federal Confidentiality of Alcohol and Drug Abuse Patient Records regulations: The Federal rules restrict any use of the information to criminally investigate or prosecute any alcohol or drug abuse patient.[facility] HospitalIn the event this information is protected by the Federal Confidentiality of Alcohol and Drug Abuse Patient Records regulations: The Federal rules restrict any use of the information to criminally investigate or prosecute any alcohol or drug abuse patient.[facility] HospitalIn the event this information is protected by the Federal Confidentiality of Alcohol and Drug Abuse Patient Records regulations: The Federal rules restrict any use of the information to criminally investigate or prosecute any alcohol or drug abuse patient.[facility] HospitalIn the event this information is protected by the Federal Confidentiality of Alcohol and Drug Abuse Patient Records regulations: The Federal rules restrict any use of the information to criminally investigate or prosecute any alcohol or drug abuse patient.[facility] HospitalIn the event this information is protected by the Federal Confidentiality of Alcohol and Drug Abuse Patient Records regulations: The Federal rules restrict any use of the information to criminally investigate or prosecute any alcohol or drug abuse patient.[facility] HospitalIn the event this information is protected by the Federal Confidentiality of Alcohol and Drug Abuse Patient Records regulations: The Federal rules restrict any use of the information to criminally investigate or prosecute any alcohol or drug abuse patient.[facility] HospitalIn the event this information is protected by the Federal Confidentiality of Alcohol and Drug Abuse Patient Records regulations: The Federal rules restrict any use of the information to criminally investigate or prosecute any alcohol or drug abuse patient.[facility] HospitalIn the event this information is protected by the Federal Confidentiality of Alcohol and Drug Abuse Patient Records regulations: The Federal rules restrict any use of the information to criminally investigate or prosecute any alcohol or drug abuse patient.[facility] HospitalIn the event this information is protected by the Federal Confidentiality of Alcohol and Drug Abuse Patient Records regulations: The Federal rules restrict any use of the information to criminally investigate or prosecute any alcohol or drug abuse patient.[facility] HospitalIn the event this information is protected by the Federal Confidentiality of Alcohol and Drug Abuse Patient Records regulations: The Federal rules restrict any use of the information to criminally investigate or prosecute any alcohol or drug abuse patient.[facility] HospitalIn the event this information is protected by the Federal Confidentiality of Alcohol and Drug Abuse Patient Records regulations: The Federal rules restrict any use of the information to criminally investigate or prosecute any alcohol or drug abuse patient.[facility] HospitalIn the event this information is protected by the Federal Confidentiality of Alcohol and Drug Abuse Patient Records regulations: The Federal rules restrict any use of the information to criminally investigate or prosecute any alcohol or drug abuse patient.[facility] HospitalIn the event this information is protected by the Federal Confidentiality of Alcohol and Drug Abuse Patient Records regulations: The Federal rules restrict any use of the information to criminally investigate or prosecute any alcohol or drug abuse patient.[facility] HospitalIn the event this information is protected by the Federal Confidentiality of Alcohol and Drug Abuse Patient Records regulations: The Federal rules restrict any use of the information to criminally investigate or prosecute any alcohol or drug abuse patient.[facility] HospitalIn the event this information is protected by the Federal Confidentiality of Alcohol and Drug Abuse Patient Records regulations: The Federal rules restrict any use of the information to criminally investigate or prosecute any alcohol or drug abuse patient.[facility] HospitalIn the event this information is protected by the Federal Confidentiality of Alcohol and Drug Abuse Patient Records regulations: The Federal rules restrict any use of the information to criminally investigate or prosecute any alcohol or drug abuse patient.[facility] HospitalIn the event this information is protected by the Federal Confidentiality of Alcohol and Drug Abuse Patient Records regulations: The Federal rules restrict any use of the information to criminally investigate or prosecute any alcohol or drug abuse patient.[facility] HospitalIn the event this information is protected by the Federal Confidentiality of Alcohol and Drug Abuse Patient Records regulations: The Federal rules restrict any use of the information to criminally investigate or prosecute any alcohol or drug abuse patient.[facility] HospitalIn the event this information is protected by the Federal Confidentiality of Alcohol and Drug Abuse Patient Records regulations: The Federal rules restrict any use of the information to criminally investigate or prosecute any alcohol or drug abuse patient.[facility] HospitalIn the event this information is protected by the Federal Confidentiality of Alcohol and Drug Abuse Patient Records regulations: The Federal rules restrict any use of the information to criminally investigate or prosecute any alcohol or drug abuse patient.[facility] HospitalIn the event this information is protected by the Federal Confidentiality of Alcohol and Drug Abuse Patient Records regulations: The Federal rules restrict any use of the information to criminally investigate or prosecute any alcohol or drug abuse patient.[facility] HospitalIn the event this information is protected by the Federal Confidentiality of Alcohol and Drug Abuse Patient Records regulations: The Federal rules restrict any use of the information to criminally investigate or prosecute any alcohol or drug abuse patient.[facility] HospitalIn the event this information is protected by the Federal Confidentiality of Alcohol and Drug Abuse Patient Records regulations: The Federal rules restrict any use of the information to criminally investigate or prosecute any alcohol or drug abuse patient.[facility] HospitalIn the event this information is protected by the Federal Confidentiality of Alcohol and Drug Abuse Patient Records regulations: The Federal rules restrict any use of the information to criminally investigate or prosecute any alcohol or drug abuse patient.[facility] HospitalIn the event this information is protected by the Federal Confidentiality of Alcohol and Drug Abuse Patient Records regulations: The Federal rules restrict any use of the information to criminally investigate or prosecute any alcohol or drug abuse patient.[facility] HospitalIn the event this information is protected by the Federal Confidentiality of Alcohol and Drug Abuse Patient Records regulations: The Federal rules restrict any use of the information to criminally investigate or prosecute any alcohol or drug abuse patient.[facility] HospitalIn the event this information is protected by the Federal Confidentiality of Alcohol and Drug Abuse Patient Records regulations: The Federal rules restrict any use of the information to criminally investigate or prosecute any alcohol or drug abuse patient.[facility] HospitalIn the event this information is protected by the Federal Confidentiality of Alcohol and Drug Abuse Patient Records regulations: The Federal rules restrict any use of the information to criminally investigate or prosecute any alcohol or drug abuse patient.[facility] Reason for Visit (unrecogniz ed section and content) Reason Comments Follow Up 3 months Specialty Diagnoses / Procedures [facility] Diagnoses 3 mo OV Procedures 3Mo OV Phuc Martines, DO [address] [place] [address] [facility] [address] [place] [address] Referral ID Status Reason Start Date Expiration Date Visits Requested Visits Authorized [id number] Pending Review OON/Self Pay Override 12/01/2021 03/01/2022 1 1 Reason Comments Established Patient Specialty Diagnoses / Procedures [facility] Diagnoses Breathing Issues Procedures Consult to Pulmonary Self [facility] [place] [address] [place] [address] Referral ID Status Reason Start Date Expiration Date Visits Requested Visits Authorized [id number] Outside PCP OON/Self Pay Override 02/05/2022 05/06/2022 1 1 Reason Onset Date Comments Refill Request 03/07/2022 Reason Comments Spirometry Specialty Diagnoses / Procedures Referred By Contac t Referred To Contact [facility] Diagnoses Chronic obstructive pulmonary disease, unspecified COPD type (HCC) Procedures SPIROMETRY BASELINE ONLY SPMTRY W/VC EXPIRATORY MARTIN W/WO MXML VOL VNTJ Hodan Christine, PAKikeC [address] [address] Referral ID Status Reason Start Date Expiration Date V isits Requested Visits Authorized [id number] Closed Auto-Generate d Referral OON/Self Pay Override 02/09/2022 03/11/2023 1 1 Specialty Diagnoses / Procedures Referred By Contac t Referred To Contact [facility] Diagnoses Chronic obstructive pulmonary disease, unspecified COPD type (HCC) Procedures OXIMETRY WITH AMBULATION NONINVASIVE EAR/PULSE OXIMETRY MULTIPLE DETER Hodan Christine PA-C [address] [address] Referral ID Status Reason Start Date Expiration Date V isits Requested Visits Authorized [id number] Closed Auto-Generate d Referral OON/Self Pay Override 02/09/2022 03/11/2023 1 1 Reason Comments Established Patient 6 week follow up Specialty Diagnoses / Procedures Referred By Contac t Referred To Contact PULMONARY MEDICINE Diagnoses office visit Procedures office visit Hodan Christine PA-C [address] [place] [address] [facility] [address] [place] [address] Referral ID Status Reason Start Date Expiration Date Visits Requested Visits Authorized [id number] Pending Review OON/Self Pay Override 02/09/2022 05/10/2022 1 1 Reason Comments Orders Reason Onset Date Comments F/U 3 Month Immunizations 08/01/2022 Flu vaccination Specialty Diagnoses / Procedures Referred By Contac t Referred To Contact INTERNAL MEDICINE Diagnoses 3 month follow up Procedures 4c est Phuc Martines, DO [address] [place] [address] [facility] [address] [place] [address] Referral ID Status Reason Start Date Expiration Date Visits Requested Visits Authorized [id number] Pending Review OON/Self Pay Override 05/01/2022 08/26/2022 [...] MULTIPLE Hodan Tejada PA-C [address] [place] [address] [facility] [place] [address] [place] [id number] Referral ID Status Reason Start Date Expiration Date V isits Requested Visits Authorized [id number] Closed Auto-Generate d Referral 05/30/2023 06/28/2024 1 [...] W/O CNTRST Phuc Martines L, DO [address] [place] [address] Ct [facility] Referral ID Status Reason Start Date Expiration Date V isits Requested Visits Authorized [id number] Closed Auto-Generate d Referral 08/01/2022 08/31/2023 1 1 Reason Comments Radiology US Specialty Diagnoses / Procedures Referred By Contac t Referred To Contact US IMAGING Diagnoses Cyst of spleen Procedures US ABD SPLEEN US ABDOMINAL REAL TIME W/IMAGE LIMITED Pratibha King, ACCURACY EXPERT.NEWSSTAND VENDOR [address] [place] [address] Us Imaging [facility] Referral ID Status Reason Start Date Expiration Date Visits Requested Visits Authorized [id number] Pending Review Auto-Generat ed Referral 08/30/2022 09/29/2023 1 1 Reason Comments Forms Reason Comments Radiology CT Specialty Diagnoses / Procedures Referred By Sonaliac t Referred To Contact CT IMAGING Diagnoses Former cigarette smoker Procedures CT LUNG SCREEN WO IVCON COMPUTED TOMOGRAPHY THORAX LW DOSE LNG CA [facility] Maricruz Mendes, ACCURACY EXPERT.NEWSSTAND VENDOR [address] [place] [address] Ct [facility] [place] [address] Referral ID Status Reason Start Date Expiration Date V isits Requested Visits Authorized [id number] Closed Auto-Generate d Referral 09/17/2023 10/16/2024 1 [...] CT Specialty Diagnoses / Procedures Referred By Marcy t Referred To Contact CT IMAGING Diagnoses Former cigarette smoker Procedures CT LUNG SCREEN WO IVCON COMPUTED TOMOGRAPHY THORAX LW DOSE LNG [facility] Maricruz Mendes, ACCURACY EXPERT.NEWSSTAND VENDOR [phone] [facility] [place] [address] Referral ID Status Reason Start Date Expiration Date V isits Requested Visits Authorized [id number] Closed Auto-Generate d Referral 10/11/2023 11/09/2024 1 1 Reason Onset Date Comments Population Health Navigation Outreach 11/11/2024 [facility] [place] [facility] Reason Onset Date Comments Refill Request 11/27/2024 Lab Orders 11/27/2024 Reason Comments Follow Up 6 month COPD follow up Reason Comments Follow Up Specialty Diagnoses / Procedures Referred By Sonaliac t Referred To Contact CT IMAGING Diagnoses Lung nodules Procedures CT LUNG FOLLOWUP WO IVCON DIAGNOSTIC COMPUTED TOMOGRAPHY THORAX W/O CNTRST Maricruz Camp, ACCURACY EXPERT.NEWSSTAND VENDOR [address] [phone] Phone: tel: fax: [place] [address] Referral ID Status Reason Start Date Expiration Date V isits Requested Visits Authorized [id number] Closed Auto-Generate d Referral 12/26/2024 11/18/2025 1 1 Specialty Diagnoses / Procedures Referred By Marcy t Referred To Contact CT IMAGING Diagnoses Lung nodules Procedures CT LUNG FOLLOWUP WO IVCON DIAGNOSTIC COMPUTED TOMOGRAPHY THORAX W/O CNTRST Maricruz Camp, JAKI.NEWSSTAND VENDOR [address] [place] [address] Phone: tel: fax: [place] [address] Referral ID Status Reason Start Date Expiration Date V isits Requested Visits Authorized [id number] Closed Auto-Generate d Referral 12/26/2024 11/18/2025 1 1 Reason Comments Hospital F/U [facility] COPD Reason Comments Hospital F/U Reason Comments BP Check Had appointment with cardiology yesterday; [facility] Dr. Elena Reason Comments Skin Rashes x 2 days mouth and n ose thick mucous x 1 week Reason Onset Date Comments Results 04/22/2025 Reason Comments increased confusion PT WAS PLACED O A NE W MEDS FOR HEART FLUTTER NOT SURE IF THIS COULD BE A SIDE EFFECT FROM MEDICATION Care Teams (unrecognized sec tion and content) Payment Processor Relationship Specialty Start Date End Date Phuc Martines DO [address] [place] [address] PCP - General Family Practice 11/09/15 Payment Processor Relationship Specialty Start Date End Date Phuc Martines DO [address] [place] [address] PCP - General Family Practice 11/09/15 Payment Processor Relationship Specialty Start Date End Date Phuc Martines DO [address] [place] [address] PCP - General Family Practice 11/09/15 Payment Processor Relationship Specialty Start Date End Date Phuc Martines DO [address] [place] [address] PCP - General Family Practice 11/09/15 Payment Processor Relationship Specialty Start Date End Date Phuc Martines, DO [address] [place] [address] PCP - General Family Practice 11/09/15 Payment Processor Relationship Specialty Start Date End Date Phuc Martines, DO [address] [place] [address] PCP - General Family Practice 11/09/15 Payment Processor Relationship Specialty Start Date End Date Phuc Martines, DO [address] [place] [address] PCP - General Family Practice 11/09/15 Payment Processor Relationship Specialty Start Date End Date Phuc Martines, DO [address] [place] [address] PCP - General Family Practice 11/09/15 Payment Processor Relationship Specialty Start Date End Date Phuc Martines, DO [address] [place] [address] PCP - General Family Medicine 11/09/15 Payment Processor Relationship Specialty Start Date End Date Phuc Martines, DO [address] [place] [address] PCP - General Family Medicine 11/09/15 Payment Processor Relationship Specialty Start Date End Date Phuc Martines, DO [address] [place] [address] PCP - General Family Medicine 11/09/15 Payment Processor Relationship Specialty Start Date End Date Phuc Martines, DO [address] [place] [address] PCP - General Family Medicine 11/09/15 Payment Processor Relationship Specialty Start Date End Date Phuc Martines, DO [address] [place] [address] PCP - General Family Medicine 11/09/15 Payment Processor Relationship Specialty Start Date End Date Phuc Martines, DO [address] [facility] [place] [address] PCP - General Family Medicine 11/09/15 Payment Processor Relationship Specialty Start Date End Date Phuc Martines, DO [address] [place] [address] PCP - General Family Medicine 11/09/15 Payment Processor Relationship Specialty Start Date End Date Phuc Martines, DO [address] [place] [address] PCP - General Family Medicine 11/09/15 Payment Processor Relationship Specialty Start Date End Date Phuc Martines DO [address] [place] [address] PCP - General Family Medicine 11/09/15 Payment Processor Relationship Specialty Start Date End Date Phuc Martines DO [address] [place] [address] PCP - General Family Medicine 11/09/15 Payment Processor Relationship Specialty Start Date End Date Phuc Martines DO [address] [facility] [place] [address] PCP - General Family Medicine 11/09/15 Payment Processor Relationship Specialty Start Date End Date Phuc Martines DO [address] [facility] [place] [address] PCP - General Family Medicine 11/09/15 Payment Processor Relationship Specialty Start Date End Date Phuc Martines DO [address] [place] [address] PCP - General Family Medicine 11/09/15 Payment Processor Relationship Specialty Start Date End Date Phuc Martines, [address] [place] [address] PCP - General Family Medicine 11/09/15 Payment Processor Relationship Specialty Start Date End Date Phuc Martines, [address] [place] [address] PCP - General Family Medicine 11/09/15 Payment Processor Relationship Specialty Start Date End Date Phuc Martines, [address] [place] [address] PCP - General Family Medicine 11/09/15 Payment Processor Relationship Specialty Start Date End Date Phuc Martines, [address] [place] [address] PCP - General Family Medicine 11/09/15 Payment Processor Relationship Specialty Start Date End Date Phuc Martines, [address] [place] [address] PCP - General Family Medicine 11/09/15 Payment Processor Relationship Specialty Start Date End Date Phuc Martines, [address] [place] [address] PCP - General Family Medicine 11/09/15 Payment Processor Relationship Specialty Start Date End Date Phuc Martines, [address] [place] [address] PCP - General Family Medicine 11/09/15 Payment Processor Relationship Specialty Start Date End Date Phuc Martines, [address] [place] [address] PCP - General Family Medicine 11/09/15 Payment Processor Relationship Specialty Start Date End Date Phuc Martines DO [address] [place] [address] PCP - General Family Medicine 11/09/15 Payment Processor Relationship Specialty Start Date End Date Phuc Martines DO [address] [facility] [place] [address] PCP - General Family Medicine 11/09/15 Hodan Christine PA-C [address] [place] [address] Pulmonary and Critical Care Medicine 10/11/23 Payment Processor Relationship Specialty Start Date End Date Phuc Martines DO [address] [place] [address] PCP - General Family Medicine 11/09/15 Hodan Christine PA-C [address] [place] [address] Pulmonary and Critical Care Medicine 10/11/23 Payment Processor Relationship Specialty Start Date End Date Phuc Martines DO [address] [place] [address] PCP - General Family Medicine 11/09/15 Hodan Christine PAKikeC [address] [place] [address] Pulmonary and Critical Care Medicine 10/11/23 Payment Processor Relationship Specialty Start Date End Date Phuc Martines DO [address] [place] [address] PCP - General Family Medicine 11/09/15 Hodan Christine PA-C [address] [place] [address] Pulmonary and Critical Care Medicine 10/11/23 Payment Processor Relationship Specialty Start Date End Date Phuc Martines DO [address] [facility] [address] PCP - General Family Medicine 11/09/15 Hodan Christine PA-C [address] [place] [address] Pulmonary and Critical Care Medicine 10/11/23 Payment Processor Relationship Specialty Start Date End Date Phuc Martines DO [address] [place] [address] PCP - General Family Medicine 11/09/15 Hodan Christine PA-C [address] [place] [address] Pulmonary and Critical Care Medicine 10/11/23 Payment Processor Relationship Specialty Start Date End Date Phuc Martines DO [address] [place] [address] PCP - General Family Medicine 11/09/15 Hodan Christine PA-C [address] [facility] [place] [address] Pulmonary and Critical Care Medicine 10/11/23 Payment Processor Relationship Specialty Start Date End Date Phuc Martines DO [address] [place] [address] PCP - General Family Medicine 11/09/15 Payment Processor Relationship Specialty Start Date End Date Phuc Martines DO [address] [place] [address] PCP - General Family Medicine 11/09/15 Payment Processor Relationship Specialty Start Date End Date Phuc Martines DO [address] [place] [address] PCP - General Family Medicine 11/09/15 Hodan Christine PA-C [address] [place] [address] Pulmonary and Critical Care Medicine 10/11/23 Payment Processor Relationship Specialty Start Date End Date Phuc Martines DO [address] [place] [address] PCP - General Family Medicine 11/09/15 Hodan Christine PA-C [address] [place] [address] Pulmonary and Critical Care Medicine 10/11/23 Vicky Duong, ACCURACY EXPERT.NEWSSTAND VENDOR [address] [place] [address] [employer] Consultant Family Medicine 10/04/24 Pratibha King APRN.NEWSSTAND VENDOR [address] [place] [address] [employer] Consultant Family Medicine 10/04/24 Payment Processor Relationship Specialty Start Date End Date Phuc Martines DO [address] [place] [address] PCP - General Family Medicine 11/09/15 Hodan Christine PA-C [address] [place] [address] Pulmonary and Critical Care Medicine 10/11/23 Vicky Duong, JAKI.NEWSSTAND VENDOR [address] [place] [address] [facility] 10/04/24 Pratibha King APRN.NEWSSTAND VENDOR [address] [address] [facility] 10/04/24 Payment Processor Relationship Specialty Start Date End Date Phuc Martines DO [address] [place] [address] PCP - General Family Medicine 11/09/15 Hodan Christine PA-C [address] [place] [address] Pulmonary and Critical Care Medicine 10/11/23 Vicky Duong, ACCURACY EXPERT.NEWSSTAND VENDOR [address] [place] [address] [facility] 10/04/24 FernandoPratibha, ACCURACY EXPERT.NEWSSTAND VENDOR [address] [facility] [address] [facility] 10/04/24 Payment Processor Relationship Specialty Start Date End Date Phuc Martines DO [address] [facility] [place] [address] PCP - General Family Medicine 11/09/15 Hodan Christine, PA-C [address] [place] [address] Pulmonary and Critical Care Medicine 10/11/23 Vicky Duong, ACCURACY EXPERT.NEWSSTAND VENDOR [address] [place] [address] [facility] 10/04/24 FernandoPratibha, ACCURACY EXPERT.NEWSSTAND VENDOR [address] [facility] [place] [address] [facility] 10/04/24 Payment Processor Relationship Specialty Start Date End Date Phuc Martines DO [address] [place] [address] PCP - General Family Medicine 11/09/15 Hodan Christine, PA-C [address] [place] [address] Pulmonary and Critical Care Medicine 10/11/23 Vicky Duong, ACCURACY EXPERT.NEWSSTAND VENDOR [address] [place] [address] [facility] 10/04/24 FernandoPratibha, ACCURACY EXPERT.NEWSSTAND VENDOR [address] [place] [address] [facility] 10/04/24 Payment Processor Relationship Specialty Start Date End Date Phuc Martines DO [address] [place] [address] PCP - General Family Medicine 11/09/15 Hodan Christine PA-C [address] [place] [address] Pulmonary and Critical Care Medicine 10/11/23 Vicky Duong, ACCURACY EXPERT.NEWSSTAND VENDOR [address] [place] [address] [facility] 10/04/24 FernandoPratibha, ACCURACY EXPERT.NEWSSTAND VENDOR [address] [place] [address] [facility] 10/04/24 Payment Processor Relationship Specialty Start Date End Date Phuc Martines DO [address] [place] [address] PCP - General Family Medicine 11/09/15 Hodan Christine PA-C [address] [place] [address] Pulmonary and Critical Care Medicine 10/11/23 Vicky Duong, ACCURACY EXPERT.NEWSSTAND VENDOR [address] [place] [address] [facility] 10/04/24 FernandoPratibha, ACCURACY EXPERT.NEWSSTAND VENDOR [address] [place] [address] [facility] 10/04/24 Payment Processor Relationship Specialty Start Date End Date Phuc Martines DO [address] [place] [address] PCP - General Family Medicine 11/09/15 Hodan Christine PA-C [address] [place] [address] Pulmonary and Critical Care Medicine 10/11/23 Vicky Duong, ACCURACY EXPERT.NEWSSTAND VENDOR [address] [place] [address] [facility] 10/04/24 [facility] [facility])Pratibha, ACCURACY EXPERT.NEWSSTAND VENDOR [address] [place] [address] [facility] 10/04/24 Payment Processor Relationship Specialty Start Date End Date Phuc Martines DO [address] [place] [address] PCP - General Family Medicine 11/09/15 Hodan Christine PA-C [address] [place] [address] Pulmonary and Critical Care Medicine 10/11/23 Vicky Duong, ACCURACY EXPERT.NEWSSTAND VENDOR [address] [place] [address] [facility] 10/04/24 [facility]Pratibha, ACCURACY EXPERT.NEWSSTAND VENDOR [address] [place] [address] [facility] 10/04/24 Payment Processor Relationship Specialty Start Date End Date Phuc Martines DO [address] [place] [address] PCP - General Family Medicine 11/09/15 Hodan Christine PA-C [address] [place] [address] Pulmonary and Critical Care Medicine 10/11/23 FernandoPratibha, JAKI.NEWSSTAND VENDOR [address] [place] [address] [employer] [facility] 10/04/24 Payment Processor Relationship Specialty Start Date End Date Phuc Martines DO [address] [place] [address] PCP - General Family Medicine 11/09/15 Hodan Christine PA-C [address] [place] [address] Pulmonary and Critical Care Medicine 10/11/23 FernandoPratibha, ACCURACY EXPERT.NEWSSTAND VENDOR [address] [place] [address] [facility] [employer] [facility] Payment Processor Relationship Specialty Start Date End Date Phuc Martines DO [address] [place] [address] PCP - General Family Medicine 11/09/15 Hodan Christine PA-C [address] [place] [address] Pulmonary and Critical Care Medicine 10/11/23 FernandoPratibha, ACCURACY EXPERT.NEWSSTAND VENDOR [address] [place] [address] [facility] 10/04/24 Payment Processor Relationship Specialty Start Date End Date Phuc Martines DO [address] [place] [address] PCP - General Family Medicine 11/09/15 Hodan Christine PA-C [address] [place] [id number] Pul[facility] Critical [facility] Medicine 10/11/23 Pratibha King APRN.CNP [address] [place] [address] [employer] Consultant [facility] 10/04/24 Team Status: Active Member [...] Star t: February 21, 2025 Dr. Kym Norotn MD Other Provider Active Star t: February [...] Provider Active Start : February 23, 2025 Payment Processor Relationship Specialty Start Date End Date Phuc Martines DO [address] [place] [address] PCP - General Family Medicine 11/09/15 Hodan Christine PA-C [address] [place] [address] Pulmonary and Critical Care Medicine 10/11/23 [facility] Pratibha, ACCURACY EXPERT.NEWSSTAND VENDOR [address] [facility] [place] [address] [employer] [facility]/04/24 Payment Processor Relationship Specialty Start Date End Date Phuc Martines DO [address] [place] [address] PCP - General Family Medicine 11/09/15 Hodan Christine PA-C [address] [facility] [place] [address] Pulmonary and Critical Care Medicine 10/11/23 [facility]AleksandraPratibha, ACCURACY EXPERT.NEWSSTAND VENDOR [address] [place] [address] [facility] 10/04/24 Payment Processor Relationship Specialty Start Date End Date Phuc Martines DO [address] [place] [address] PCP - General Family Medicine 11/09/15 Hodan Christine PA-C [address] [place] [address] Pulmonary and Critical Care Medicine 10/11/23 [facility]AleksandraPratibha, ACCURACY EXPERT.NEWSSTAND VENDOR [address] [place] [address] [facility] 10/04/24 Payment Processor Relationship Specialty Start Date End Date Phuc Martines DO [address] [place] [address] PCP - General Family Medicine 11/09/15 Hodan Christine, PA-C [address] [place] [address] Pulmonary and Critical Care Medicine 10/11/23 [facility]Gloriaah, ACCURACY EXPERT.NEWSSTAND VENDOR [address] [place] [place] [address] [employer] [facility] 10/04/24 Payment Processor Relationship Specialty Start Date End Date Phuc Martines DO [address] [place] [place] [address] PCP - General Family Medicine 11/09/15 Hodan Christine, PA-C [address] [place] [address] Pulmonary and Critical Care Medicine 10/11/23 [facility]Pratibha, ACCURACY EXPERT.NEWSSTAND VENDOR [address] [place] [place] [address] [facility] 10/04/24 Team Status: Inactive Member Role Status Dates Dr. Phuc Martines DO Primary Care Provider Active Start: March 30, 2025 End: March 30, 2025 Dr. Phuc Martines DO Referring Provider Active Start: March 30, 2025 End: March 30, 2025 Dr. Bryan Elena MD Attending Provider Active Start: March 30, 2025 End: March 30, 2025 Payment Processor Relationship Specialty Start Date End Date Phuc Martines DO [address] [place] [address] PCP - General Family Medicine 11/09/15 Hodan Christine PA-C [address] [place] [address] Pulmonary and Critical Care Medicine 10/11/23 [facility]Pratibha, ACCURACY EXPERT.NEWSSTAND VENDOR [address] [place] [address] [facility] 10/04/24 [facility], ACCURACY EXPERT.NEWSSTAND VENDOR [address] [place] [address] [facility] 04/12/25 Payment Processor Relationship Specialty Start Date End Date Phuc Martines DO [address] [place] [address] PCP - General Family Medicine 11/09/15 Hodan Christine PA-C [address] [place] [address] Pulmonary and Critical Care Medicine 10/11/23 [facility]Pratibha, ACCURACY EXPERT.NEWSSTAND VENDOR [address] [place] [address] [facility] 10/04/24 MeenaTerrie, ACCURACY EXPERT.NEWSSTAND VENDOR [address] [place] [address] [facility] 04/12/25 Payment Processor Relationship Specialty Start Date End Date Phuc Martines DO [address] [place] [address] PCP - General Family Medicine 11/09/15 Hodan Christine PA-C [address] [place], [place] [address] Pulmonary and Critical Care Medicine 10/11/23 Pratibha King, ACCURACY EXPERT.NEWSSTAND VENDOR [address] [place], [place] [address] [facility] 10/04/24 Terrie Carson, ACCURACY EXPERT.NEWSSTAND VENDOR [address] [place] [address] [facility] 04/12/25 Team Status: Active Member Role/Relationship Status Dates Dr. Phuc Martines DO Primary Care Provider Active Team Status: Inactive Member Role/Relationship Status Dates Dr. Phuc Martines DO Primary Care Provider Active Start: February 19, 2025 End: February 23, 2025 Dr. Linwood Ivy , Emergency Provider Active Start: February 19, 2025 End: February 23, 2025 Dr. Kym Norton MD Admit Provider Active Star t: February 19, 2025 End: February 23, 2025 Dr. Kym Norton MD Other Provider Active Star t: February 19, 2025 End: February 23, 2025 Dr. Yee Jones MD Attending Provider Active Start: February 19, 2025 End: February 23, 2025 Dr. Claudia Valerio , Other Provider Active Start : February 19, 2025 End: February 23, 2025 Team Status: Active Member Role/Relationship Status Dates Dr. Phuc Martines DO Primary [...] tart: February 20, 2025 Dr. Claudia Valerio , Other Provider Active Start : February 20, 2025 Team Status: Active Member Role/Relationship Status Dates Dr. Phuc Martines DO Primary Care Provider Active Start: February 20, 2025 Dr. Mercy Purvis MD Attending Provider Active Start: February 20, 2025 Team Status: Active Member Role/Relationship Status Dates Dr. Phuc Martines DO Primary Care Provider Active Start: February 21, 2025 Dr. Linwood Ivy DO Emergency Provider Active Start: February 21, 2025 Dr. Kym Norton MD Admit Provider Active Star t: February 21, 2025 Dr. yKm Norton MD Other Provider Active Star t: February 21, 2025 Dr. Claudia Valerio DO Attending Provider Active S tart: February 21, 2025 Dr. Claudia Valerio , Other Provider Active Start : February 21, 2025 Team Status: Active Member Role/Relationship Status Dates Dr. Phuc Martines DO Primary Care Provider Active Start: February 22, 2025 Dr. Linwood Ivy , Emergency Provider Active Start: February 22, 2025 [...] February 22, 2025 Team Status: Active Member Role/Relationship Status Dates Dr. Phuc Martines DO Primary [...] Provider Active Start : February 23, 2025 Team Status: Inactive Member Role/Relationship Status Dates Dr. Phuc Martines DO Primary Care Provider Active Start: March 30, 2025 End: March 30, 2025 Dr. Phuc Martines DO Referring Provider Active Start: March 30, 2025 End: March 30, 2025 Dr. Bryan Elena MD Attending Provider Active Start: March 30, 2025 End: March 30, 2025 Team Status: Active Member Role/Relationship Status Dates Dr. Phuc Martines DO Primary Care Provider Active Start: April 23, 2025 Dr. Clay Hager MD Emergency Provider Active S tart: April 23, 2025 Dr. Virginia Henriquez MD Admit Provider Active St art: April 23, 2025 Dr. Virginia Henriquez MD Attending Provider Active Start: April 23, 2025 Dr. Virginia Henriquez MD Other Provider Active St art: April 23, 2025 Team Status: Inactive Member Role/Relationship Status Dates Dr. Phuc Martines DO Primary Care Provider Active Start: April 23, 2025 End: April 27, 2025 Dr. Clay Hager MD Emergency Provider Active S tart: April 23, 2025 End: April 27, 2025 Dr. Virginia Henriquez MD Admit Provider Active St art: April 23, 2025 End: April 27, 2025 Dr. Virginia Henriquez MD Other Provider Active St art: April 23, 2025 End: April 27, 2025 Dr. George Polanco MD Attending Provider Active Start: April 23, 2025 End: April 27, 2025 Team Status: Active Member Role/Relationship Status Dates Dr. Phuc Martines DO Primary Care Provider Active Start: April 24, 2025 Dr. Clay Hager MD Emergency Provider Active S tart: April 24, 2025 Dr. Virginia Henriquez MD Admit Provider Active St art: April 24, 2025 Dr. Virginia Henriquez MD Other Provider Active St art: April 24, 2025 Dr. George Polanco MD Attending Provider Active Start: April 24, 2025 Dr. George Polanco MD Other Provider Active Sta rt: April 24, 2025 Team Status: Active Member Role/Relationship Status Dates Dr. Phuc Martines DO Primary Care Provider Active Start: April 25, 2025 Dr. Clay Hager MD Emergency Provider Active S tart: April 25, 2025 Dr. Virginia Henriquez MD Admit Provider Active St art: April 25, 2025 Dr. Virginia Henriquez MD Other Provider Active St art: April 25, 2025 Dr. George Polanco MD Attending Provider Active Start: April 25, 2025 Dr. George Polanco MD Other Provider Active Sta rt: April 25, 2025 Team Status: Active Member Role/Relationship Status Dates Dr. Phuc Martines DO Primary Care Provider Active Start: April 26, 2025 Dr. Clay Hager MD Emergency Provider Active S tart: April 26, 2025 Dr. Virginia Henriquez MD Admit Provider Active St art: April 26, 2025 Dr. Virginia Henriquez MD Other Provider Active St art: April 26, 2025 Dr. George Polanco MD Attending Provider Active Start: April 26, 2025 Dr. George Polanco MD Other Provider Active Sta rt: April 26, 2025 Team Status: Active Member Role/Relationship Status Dates Dr. Phuc Martines DO Primary Care Provider Active Start: April 27, 2025 Dr. Clay Hager MD Emergency Provider Active S tart: April 27, 2025 Dr. Virginia Henriquez MD Admit Provider Active St art: April 27, 2025 Dr. Virginia Henriquez MD Other Provider Active St art: April 27, 2025 Dr. George Polanco MD Attending Provider Active Start: April 27, 2025 Dr. George Polanco MD Other Provider Active Sta rt: April 27, 2025 Team Status: Active Member Role/Relationship Status Dates Dr. Phuc Martines DO Primary Care Provider Active Start: May 07, 2025 Kim Price LIQUOR GALLERY OPERATOR, LIQUOR GALLERY OPERATOR-C Attending Provider Active Start: May 07, 2025 Kim Price NP, LIQUOR GALLERY OPERATOR-C Referring Provider Active Start: May 07, 2025 Team Status: Inactive Member Role/Relationship Status Dates Dr. Phuc Martines DO Primary Care Provider Active Start: May 07, 2025 End: May 07, 2025 Dr. Phuc Martines DO Referring Provider Active Start: May 07, 2025 End: May 07, 2025 Kim Price LIQUOR GALLERY OPERATOR, LIQUOR GALLERY OPERATOR-C Attending Provider Active Start: May 07, 2025 End: May 07, 2025 FOR RECORDS PERTAINING TO PATIENTS WHO ARE [...] BE BASED ON THE PRIMARY CLINICAL RECORDS. [facility] [employer] [facility]. provides no warranty or guarantee of the accuracy or completeness of information in this document.
== END | disposition home or self-care (01) ==
PROVIDERS: PCP Student in an Organized Health Care Education/Training Program; Referring Provider Nurse Practitioner Gerontology; Visit Provider Nurse Practitioner Gerontology
DX: R06.02 Shortness of breath (principal); M79.89 Other specified soft tissue disorders; Z79.01 Long term (current) use of anticoagulants
CPT/HCPCS: 36415; 71046; 80048; 83880; 85025

== ENCOUNTER 2025-05-13 13:08 | Inpatient (IN) | payer MEDICARE, BC, SELFPAY ==
[2025-05-13] VITALS (27 sets, daily range): BP systolic 112–183; BP diastolic 49–119; PULSE 86–117; RESP 12–33; TEMP 36.2–37.1; O2SAT 74–99; BMI 44.8; BMI 45.0
--- NOTE | 2025-05-13 13:14 | EDS_ITS ---
<Statement entered by Linwood Ivy DO - 05/15/25 15:11> Patient was seen and examined with physician mortgage loan assistant Malika All components of the history and physical confirmed and agreed. History of present illness and physical exam: Patient is a 69-year-old female with past medical history hypertension, hyperlipidemia, atrial fibrillation/flutter on Eliquis, heart failure with preserved ejection fraction, COPD on 3 to 6 L nasal cannula at baseline, ROXY, alcohol use who presents to the emergency department the chief complaint of worsening shortness of breath and bilateral leg swelling. She states that she was recently admitted to the hospital and states that despite this she feels that her breathing had not been much difference upon discharge. She notes that at home she wears 3.5 L at rest and 6 L with activity. She states that she is on Lasix 40 mg twice daily and notes that she on her visit with cardiology on 05/07 she was instructed to increase Lasix to 60 mg twice daily for 5 days and they started her on Farxiga 10 mg daily. Per EMS when they arrived they noted that she was hypoxic therefore they placed her on nonrebreather. Review of systems: Agree with above Physical exam: Agree with above [facility] Patient is a 69-year-old female who presented to the emergency department the chief complaint of worsening dyspnea on exertion and increased bilateral lower extremity edema. Once workup is obtained and reviewed she will be reevaluated. Patient's CBC was reviewed which showed a white blood cell that was normal at 10.1, hemoglobin 10.1, platelet count of 115. Patient sodium was 143, potassium was 4.7, creatinine was 0.58. Patient's AST and ALT were 27 and 18 respectively, troponin was less than 6 with a delta troponin of less than 6. Patient's EKG reviewed and showed atrial flutter with a rate of 106 bpm. Patient's proBNP elevated 2554. Patient's ABG obtained reviewed showed pH 7.36 with a PCO2 92.9. Patient CTA of the chest was reviewed and showed markedly limited exam without evidence of central pulmonary embolism. There was similar appearance of the lungs on CT at 02/20/2025 which included solid pulmonary nodule measuring up to 1.2 cm in size. Recommend repeat CT in 6 to 12 months and pulmonary referral. Multiple hypodense lesions in the spleen measuring 2.[address] abdomen pelvis. At this point in time given her increased oxygen requirements there is concern for COPD/CHF exacerbation therefore patient's case was discussed with hospitalist for admission. Patient was excepted to the hospital for admission. Patient was updated as well as for member all question concerns answered at bedside. Final impression: CHF exacerbation COPD exacerbation Acute on chronic hypoxic respiratory failure Disposition: Patient will be admitted to the hospital further evaluation management Supervising attending attestation: Linwood GERMAIN History of Present Illness Chief Complaint: Shortness of Breath Narrative Narrative: 69-year-old female past medical history of HTN, HLD, A-fib/flutter on Eliquis, HFpEF, COPD on 3 to 6 L at baseline, ROXY, alcohol use states over the last few days she has had increasing shortness of breath and bilateral leg swelling. She was recently admitted from 04/23 through 04/27 for atrial flutter with RVR and mild COPD exacerbation from a suspected viral infection. States at home she wears 3.5 L of O2 at rest and 6 L with activity. She has had increasing leg swelling. She was on Lasix 40 mg twice daily and had a cardiology visit on 05/07 and was instructed to increase Lasix to 60 mg twice daily for 5 days and start Farxiga 10 mg daily. Today she feels more short of breath and is requiring more oxygen. No chest pain. No fever or chills. No nausea vomiting or abdominal pain. [facility] Medical History (Reviewed 05/07/25 @ 17:22 by Kim Price MOLDING MACHINE OPERATOR HELPER, MOLDING MACHINE OPERATOR HELPER-C) Atrial flutter with rapid ventricular response Pulmonary nodule Atrial flutter Shortness of breath ROXY (obstructive sleep apnea) Leiomyoma of uterus Internal hemorrhoids with complication Hypertension Diverticulosis of colon Chronic hypoxemic respiratory failure Alcohol abuse Former smoker On home oxygen therapy Irregular heart beat Atrial fibrillation COPD (chronic obstructive pulmonary disease) Home Medications ?Medication ?Instructions ?Recorded ?Last Taken ?Type Oxygen, Home [Home Oxygen] 2 - 4 lpm QHS sob/copd 10/2804/23/25 History albuterol sulfate 90 mcg/actuation 2 inh inhalation Q6 H PRN shortness 02/19/25 05/13/25 History breath activated powder inhaler of breath fluticasone fur. 200 mcg-umeclid 1 ea inhalation DAILY sob 02/19/25 05/12/25 History 62.5 mcg-vilant 25 mcg inhalat.powder (Trelegy Ellipta) guaifenesin 1,200 mg tablet, 1,200 mg PO BID PRN cough 02/19/25 Unknown History extended release 12 hr (Mucus Relief ER) ipratropium 0.5 mg-albuterol 3 mg 3 ml inhalation Q6H PRN shortness 02/19/25 02/19/25 History (2.5 mg base)/3 mL nebulization of breath soln multivitamin (Daily Multi-Vitamin 1 tab PO DAILY suppl ement 02/19/25 05/12/25 History tablet) sodium chloride 0.65 % nasal spray 1 spray intranasal BID PRN dry 02/19/25 Unknown History aerosol (Powersite Saline) nasal passages ascorbic acid (vitamin C) 500 mg 500 mg PO DAILY PRN s upplement 03/30/25 Unknown History capsule cinnamon bark 500 mg capsule 500 mg PO QDAY supplement 03/30/25 05/12/25 History (Cinnamon) mecobalamin (vitamin B12) 1,000 1,000 mcg PO QDAY supp lement 03/30/25 05/12/25 History mcg chewable tablet nystatin 100,000 unit/gram topical 1 applic topical BI D skin rash 04/23/25 05/12/25 History cream apixaban 5 mg tablet (Eliquis) 5 mg PO BID blood thinn er #180 tabs 05/07/25 05/12/25 Rx atorvastatin 40 mg tablet 40 mg PO QHS #90 tabs 05/12/25 Rx dapagliflozin propanediol 10 mg 10 mg PO QAM #30 tabs 05/07/25 05/12/25 Rx tablet (Farxiga) diltiazem HCl 180 mg 180 mg PO Q12 #180 caps 04/2705/12/25 Rx capsule,extended release 24 hr furosemide 40 mg tablet 40 mg PO BID diuretic #180 t abs 05/07/25 05/12/25 Rx metoprolol tartrate 50 mg tablet 50 mg PO BID blood pr essure #180 05/07/25 05/12/25 Rx tabs potassium chloride 20 mEq 20 meq PO BID supplement #18 0 tabs 05/07/25 05/12/25 Rx tablet,extended release(part/cryst) (Klor-Con M) amiodarone 200 mg tablet 200 mg PO DAILY Afib 5 05/12/25 History Allergy/AdvReac Type Severity Reaction Status Date / Time ibuprofen (From Advil) Allergy Mild Hives Verified 05/13/25 13:10 nitrofurantoin (From Allergy Rash Verified 05/13/25 13:10 Macrobid) Family History (Reviewed 05/07/25 @ 17:22 by Kim Price MOLDING MACHINE OPERATOR HELPER, MOLDING MACHINE OPERATOR HELPER-C) Father Cancer Mother COPD (chronic obstructive pulmonary disease) Alcoholism Grandmother Hypertension Thyroid disorder Surgical History (Reviewed 05/07/25 @ 17:22 by Kim Price MOLDING MACHINE OPERATOR HELPER, MOLDING MACHINE OPERATOR HELPER-C) History of surgery History of colonoscopy History of lumpectomy of right breast Hx of inguinal herniorrhaphy Social History household members: none Smoking Status: Former smoker how long ago did patient quit smoking: Quit 15 years prior, smoked 1 pack/day since she been 16 until she quit. alcohol intake: current alcohol intake frequency: 0-2 drinks per day Alcohol type: hard liquor details: Hard liquor mixed drinks, previously heavier, down to 2 drinks daily. substance use type: does not use caffeine: Yes ROS ROS ED ROS Narrative Constitutional: Negative for fever, chills, malaise. CVS: Negative for palpitations, chest pain, syncope. Respiratory: Positive for shortness of breath. GI: Negative for abdominal pain, nausea, vomiting, melena, hematochezia. EXAM Physical Exam Narrative Exam Narrative: CONST: Patient on nonrebreather in moderate respiratory distress. EYES: Normal inspection. NECK: Normal inspection. RESP: Lung sounds severely diminished. No overt wheezing. CVS: Regular rate and rhythm, no murmur, no gallop. ABD: Soft and nontender, no guarding or rebound, nondistended. SKIN: Color normal, no rash, warm, dry, intact. EXTREMITIES: Normal appearance, 2+ pitting edema both lower legs. NEURO: Alert and answering questions appropriately. PSYCH: Normal affect. Const Vital Signs: 05/13/25 13:10 05/13/25 13:15 05/13/25 13:30 Temperature 98.7 F Temperature Source Oral Pulse Rate 109 H 105 H 101 H Respiratory Rate 26 H 27 H 25 H Respiratory Pattern Blood Pressure 132/99 H 147/55 H Blood Pressure Mean 110 82 Pulse Ox 87 82 96 Oxygen Delivery Method Nasal Cannula Oxygen Flow Rate (L/min) 3 Fraction of Inspired Oxygen (FIO2) 05/13/25 13:45 05/13/25 13:56 05/13/25 13:56 Temperature Temperature Source Pulse Rate 98 101 H Respiratory Rate 28 H 24 H Respiratory Pattern Tachypnea Tachypnea Blood Pressure 124/65 H Blood Pressure Mean 76 Pulse Ox 93 Oxygen Delivery Method Oxygen Flow Rate (L/min) Fraction of Inspired Oxygen (FIO2) 40 05/13/25 14:00 05/13/25 14:15 05/13/25 14:30 Temperature Temperature Source Pulse Rate 98 109 H Respiratory Rate 26 H 26 H Respiratory Pattern Blood Pressure 141/62 H 139/64 H 132/49 H Blood Pressure Mean 86 87 67 Pulse Ox 85 89 Oxygen Delivery Method Oxygen Flow Rate (L/min) Fraction of Inspired Oxygen (FIO2) 05/13/25 14:45 05/13/25 15:00 05/13/25 15:15 Temperature Temperature Source Pulse Rate 98 105 H 105 H Respiratory Rate 32 H 21 H 28 H Respiratory Pattern Blood Pressure 138/54 H 152/49 H 182/83 H Blood Pressure Mean 79 74 104 Pulse Ox 94 95 96 Oxygen Delivery Method Oxygen Flow Rate (L/min) Fraction of Inspired Oxygen (FIO2) 05/13/25 15:30 05/13/25 15:45 05/13/25 16:00 Temperature Temperature Source Pulse Rate 112 H 109 H 109 H Respiratory Rate 27 H 28 H 27 H Respiratory Pattern Blood Pressure 183/81 H 159/76 H 130/62 H Blood Pressure Mean 104 100 73 Pulse Ox 95 96 90 Oxygen Delivery Method Oxygen Flow Rate (L/min) Fraction of Inspired Oxygen (FIO2) 05/13/25 16:30 05/13/25 17:00 05/13/25 17:30 Temperature Temperature Source Pulse Rate 111 H 117 H 111 H Respiratory Rate 23 H 24 H 23 H Respiratory Pattern Blood Pressure 141/119 H Blood Pressure Mean 126 Pulse Ox 84 88 74 Oxygen Delivery Method Oxygen Flow Rate (L/min) Fraction of Inspired Oxygen (FIO2) 05/13/25 18:00 Temperature Temperature Source Pulse Rate 86 Respiratory Rate 17 Respiratory Pattern Blood Pressure Blood Pressure Mean Pulse Ox 93 Oxygen Delivery Method Oxygen Flow Rate (L/min) Fraction of Inspired Oxygen (FIO2) MDM MDM MDM Narrative Medical decision making narrative: 69-year-old female with past medical history of A-fib/a flutter on Eliquis, COPD on chronic oxygen, CHF presents with increasing shortness of breath and leg
--- NOTE | 2025-05-13 13:14 | ED.VIS.DYS ---
HPI History of Present Illness Chief Complaint: Shortness of Breath Narrative Narrative: 69-year-old female past medical history of HTN, HLD, A-fib/flutter on Eliquis, HFpEF, COPD on 3 to 6 L at baseline, ROXY, alcohol use states over the last few days she has had increasing shortness of breath and bilateral leg swelling. She was recently admitted from 04/23 through 04/27 for atrial flutter with RVR and mild COPD exacerbation from a suspected viral infection. States at home she wears 3.5 L of O2 at rest and 6 L with activity. She has had increasing leg swelling. She was on Lasix 40 mg twice daily and had a cardiology visit on 05/07 and was instructed to increase Lasix to 60 mg twice daily for 5 days and start Farxiga 10 mg daily. Today she feels more short of breath and is requiring more oxygen. No chest pain. No fever or chills. No nausea vomiting or abdominal pain. [facility] Medical History (Reviewed 05/07/25 @ 17:22 by Kim Price [employer] COMMANDING OFFICER, [employer]-C) Atrial flutter with rapid ventricular response Pulmonary nodule Atrial flutter Shortness of breath ROXY (obstructive sleep apnea) Leiomyoma of uterus Internal hemorrhoids with complication Hypertension Diverticulosis of colon Chronic hypoxemic respiratory failure Alcohol abuse Former smoker On home oxygen therapy Irregular heart beat Atrial fibrillation COPD (chronic obstructive pulmonary disease) Home Medications ?Medication ?Instructions ?Recorded ?Last Taken ?Type Oxygen, Home [Home Oxygen] 2 - 4 lpm QHS sob/copd 11/13/17 04/23/25 History albuterol sulfate 90 mcg/actuation 2 inh inhalation Q6H PRN shortness 02/19/25 05/13/25 History breath activated powder inhaler of breath fluticasone fur. 200 mcg-umeclid 1 ea inhalation DAILY sob 02/19/25 05/12/25 History 62.5 mcg-vilant 25 mcg inhalat.powder (Trelegy Ellipta) guaifenesin 1,200 mg tablet, 1,200 mg PO BID PRN cough 02/19/25 Unknown History extended release 12 hr (Mucus Relief ER) ipratropium 0.5 mg-albuterol 3 mg 3 ml inhalation Q6H PRN shortness 02/19/25 02/19/25 History (2.5 mg base)/3 mL nebulization of breath soln multivitamin (Daily Multi-Vitamin 1 tab PO DAILY supplement 02/19/25 05/12/25 History tablet) sodium chloride 0.65 % nasal spray 1 spray intranasal BID PRN dry 02/19/25 Unknown History aerosol ([place] Saline) nasal passages ascorbic acid (vitamin C) 500 mg 500 mg PO DAILY PRN supplement 03/30/25 Unknown History capsule cinnamon bark 500 mg capsule 500 mg PO QDAY supplement 03/30/25 05/12/25 History (Cinnamon) mecobalamin (vitamin B12) 1,000 1,000 mcg PO QDAY supplement 03/30/25 05/12/25 History mcg chewable tablet nystatin 100,000 unit/gram topical 1 applic topical BID skin rash 04/23/25 05/12/25 History cream apixaban 5 mg tablet (Eliquis) 5 mg PO BID blood thinner #180 tabs 05/07/25 05/12/25 Rx atorvastatin 40 mg tablet 40 mg PO QHS #90 tabs 05/07/25 05/12/25 Rx dapagliflozin propanediol 10 mg 10 mg PO QAM #30 tabs 05/07/25 05/12/25 Rx tablet (Farxiga) diltiazem HCl 180 mg 180 mg PO Q12 #180 caps 05/07/25 05/12/25 Rx capsule,extended release 24 hr furosemide 40 mg tablet 40 mg PO BID diuretic #180 tabs 05/07/25 05/12/25 Rx metoprolol tartrate 50 mg tablet 50 mg PO BID blood pressure #180 05/07/25 05/12/25 Rx tabs potassium chloride 20 mEq 20 meq PO BID supplement #180 tabs 05/07/25 05/12/25 Rx tablet,extended release(part/cryst) (Klor-Con M) amiodarone 200 mg tablet 200 mg PO DAILY Afib 05/13/25 05/12/25 History Allergy/AdvReac Type Severity Reaction Status Date / Time ibuprofen (From Advil) Allergy Mild Hives Verified 05/13/25 13:10 nitrofurantoin (From Allergy Rash Verified 05/13/25 13:10 Macrobid) Family History Father Cancer Mother COPD (chronic obstructive pulmonary disease) Alcoholism Grandmother Hypertension Thyroid disorder Surgical History History of surgery History of colonoscopy History of lumpectomy of right breast Hx of inguinal herniorrhaphy Social History household members: none Smoking Status: Former smoker how long ago did patient quit smoking: Quit 15 years prior, smoked 1 pack/day since she been 16 until she quit. alcohol intake: current alcohol intake frequency: 0-2 drinks per day Alcohol type: hard liquor details: Hard liquor mixed drinks, previously heavier, down to 2 drinks daily. substance use type: does not use caffeine: Yes ROS ROS ED ROS Narrative Constitutional: Negative for fever, chills, malaise. CVS: Negative for palpitations, chest pain, syncope. Respiratory: Positive for shortness of breath. GI: Negative for abdominal pain, nausea, vomiting, melena, hematochezia. EXAM Physical Exam Narrative Exam Narrative: CONST: Patient on nonrebreather in moderate respiratory distress. EYES: Normal inspection. NECK: Normal inspection. RESP: Lung sounds severely diminished. No overt wheezing. CVS: Regular rate and rhythm, no murmur, no gallop. ABD: Soft and nontender, no guarding or rebound, nondistended. SKIN: Color normal, no rash, warm, dry, intact. EXTREMITIES: Normal appearance, 2+ pitting edema both lower legs. NEURO: Alert and answering questions appropriately. PSYCH: Normal affect. Const Vital Signs: 05/13/25 13:10 05/13/25 13:15 05/13/25 13:30 Temperature 98.7 F Temperature Source Oral Pulse Rate 109 H 105 H 101 H Respiratory Rate 26 H 27 H 25 H Respiratory Pattern Blood Pressure 132/99 H 147/55 H Blood Pressure Mean 110 82 Pulse Ox 87 82 96 Oxygen Delivery Method Nasal Cannula Oxygen Flow Rate (L/min) 3 Fraction of Inspired Oxygen (FIO2) 05/13/25 13:45 05/13/25 13:56 05/13/25 13:56 Temperature Temperature Source Pulse Rate 98 101 H Respiratory Rate 28 H 24 H Respiratory Pattern Tachypnea Tachypnea Blood Pressure 124/65 H Blood Pressure Mean 76 Pulse Ox 93 Oxygen Delivery Method Oxygen Flow Rate (L/min) Fraction of Inspired Oxygen (FIO2) 40 05/13/25 14:00 05/13/25 14:15 05/13/25 14:30 Temperature Temperature Source Pulse Rate 98 109 H Respiratory Rate 26 H 26 H Respiratory Pattern Blood Pressure 141/62 H 139/64 H 132/49 H Blood Pressure Mean 86 87 67 Pulse Ox 85 89 Oxygen Delivery Method Oxygen Flow Rate (L/min) Fraction of Inspired Oxygen (FIO2) 05/13/25 14:45 05/13/25 15:00 05/13/25 15:15 Temperature Temperature Source Pulse Rate 98 105 H 105 H Respiratory Rate 32 H 21 H 28 H Respiratory Pattern Blood Pressure 138/54 H 152/49 H 182/83 H Blood Pressure Mean 79 74 104 Pulse Ox 94 95 96 Oxygen Delivery Method Oxygen Flow Rate (L/min) Fraction of Inspired Oxygen (FIO2) 05/13/25 15:30 05/13/25 15:45 05/13/25 16:00 Temperature Temperature Source Pulse Rate 112 H 109 H 109 H Respiratory Rate 27 H 28 H 27 H Respiratory Pattern Blood Pressure 183/81 H 159/76 H 130/62 H Blood Pressure Mean 104 100 73 Pulse Ox 95 96 90 Oxygen Delivery Method Oxygen Flow Rate (L/min) Fraction of Inspired Oxygen (FIO2) 05/13/25 16:30 05/13/25 17:00 05/13/25 17:30 Temperature Temperature Source Pulse Rate 111 H 117 H 111 H Respiratory Rate 23 H 24 H 23 H Respiratory Pattern Blood Pressure 141/119 H Blood Pressure Mean 126 Pulse Ox 84 88 74 Oxygen Delivery Method Oxygen Flow Rate (L/min) Fraction of Inspired Oxygen (FIO2) 05/13/25 18:00 Temperature Temperature Source Pulse Rate 86 Respiratory Rate 17 Respiratory Pattern Blood Pressure Blood Pressure Mean Pulse Ox 93 Oxygen Delivery Method Oxygen Flow Rate (L/min) Fraction of Inspired Oxygen (FIO2) MDM MDM MDM Narrative Medical decision making narrative: 69-year-old female with past medical history of A-fib/a flutter on Eliquis, COPD on chronic oxygen, CHF presents with increasing shortness of breath and leg swelling despite increasing diuretics outpatient. She is in moderate respiratory distress. On my initial exam she was on nonrebreather at 10 L still satting in the mid 80s-% so she was turned up to 15 L. Lung sounds are severely diminished. There is symmetric lower leg pitting edema. Even on 15 L she remain hypoxic so was placed on BiPAP. Differential includes but not limited to congestive heart failure exacerbation, ACS, pneumonia, PE with anticoagulation failure. She was given DuoNebs and IV Lasix 40 mg. ABG shows normal pH but CO2 retention at 92.9. CBC shows normal white count at 10.1 and hemoglobin of 10.1 slightly lower than previous 11 range. Electrolytes are unremarkable except for hypochloremia at 93 which appears chronic. Normal renal function. Troponin is less than 6. BNP is 2554 which appears similar to earlier this month. CTA shows no evidence of central PE but contrast timing was suboptimal for evaluation of more distal branches. There is extensive emphysema and scarring but no evidence of pneumonia. There is similar-appearing pulmonary nodules. With her significant CO2 retention I suspect this is a mixed picture of COPD/CHF. I discussed the case with the hospitalist for admission to the PCU. External records reviewed: Last echo was 02/20/2025 with EF of 45 to 50%, moderate mitral valve insufficiency. History & Record Review Discussion w/independent historian: Patient Additional record(s) reviewed:: Prior inpatient record, Prior ED visit and Prior labs Lab Data Attestation: I reviewed the patient's lab results. Labs: Laboratory Results - last 24 hr 05/13/25 05/13/25 13:40 16:05 WBC 10.1 RBC 3.37 L Hgb 10.1 L Hct 34.1 L MCV 101.2 H MCH 30.0 MCHC 29.6 L RDW Std Deviation 56.6 H RDW Coeff of Karly 15.3 H Plt Count 115 L MPV 11.1 Immature Gran % (Auto) 0.700 Neut % (Auto) 85.1 H Lymph % (Auto) 6.1 L [place] % (Auto) 7.4 Eos % (Auto) 0.1 Baso % (Auto) 0.6 Absolute Neuts (auto) 8.6 H Absolute Lymphs (auto) 0.61 L Nucleated RBC % 0 Sodium 143 Potassium 4.7 Chloride 93 L Carbon Dioxide 36.5 H Anion Gap 14 BUN 25 H Creatinine 0.58 L Estim Creat Clear Calc 86.37 Est GFR (MDRD) Non-Af 99 BUN/Creatinine Ratio 43.3 H Glucose 97 Calcium 8.8 Total Bilirubin 0.51 AST 27 ALT 18 Alkaline Phosphatase 121 H Troponin T High Sens < 6 Troponin T Hi Sens 2 Hr < 6 NT pro BNP II 2554 H Total Protein 7.0 Albumin 3.1 L Globulin 3.9 Albumin/Globulin Ratio 0.8 L ABG Data ABG results: ABG 05/13/25 13:33 Specimen Type ART Sample Site R Radial pH 7.36 Bicarbonate Actual 52.6 H Total CO2 > 50 Base Excess 27 H O2 Saturation 95 O2 % 15.0 ABG pCO2 92.9 H* ABG pO2 85 Gurjit Test Positive O2 Delivery Device Cannula Vent Mode Not entered Crit Call To/Read Back Yes Blood Gas Notified Whom trang Blood Gas Notified Time 13:37:54 Radiography Diagnostic Testing: Clinical Impression(s) from Imaging Studies Chest CTA 05/13/25 13:49 IMPRESSION: 1. Markedly limited exam, without evidence of central pulmonary embolism. Consider repeating this exam if there is persistent concern for a more distal embolism. 2. Similar appearance of the lungs compared to CT on 02/20/2025, to include solid pulmonary nodules measuring up to 1.2 cm in size. Recommend repeat CT in 6-12 months, and Pulmonology referral if not already performed. 3. Multiple hypodense lesions in the spleen measuring up to 2.[address] abdomen and pelvis for further evaluation, particularly if the patient has a history of malignancy or associated symptoms. Reading Location: [id number] EKG Initial EKG: Attestation: I personally reviewed and interpreted this EKG as follows: Interpretation: Atrial Flutter Comments: Atrial flutter at 106 bpm with RVR Rightward axis No STEMI Prior EKG tracings: available for review Prior: Unchanged Discharge Plan Dx/Rx/DC Orders Clinical Impression: Acute hypercapnic respiratory failure, History of COPD, History of heart failure Disposition Disposition: Acute Care Hospital [facility] Discharge Date/Time: 05/13/25 19:04
[2025-05-13 13:40] LABS: Allen Test Positive; Base Excess 27 mmol/L (-2 to +2); FI02 15.0; PO2 85 mmHG (75-100); SITE R Radial; SO2 95 % (95-99); Time Given 13:37:54
--- NOTE | 2025-05-13 13:49 | CT_ITS ---
PROCEDURE: CTA CHEST W/WO CONTRAST 05/13/2025 REASON FOR EXAM: SOB TECHNIQUE: CTA CHEST W/WO CONTRAST Multiplanar Sagittal and Coronal images were obtained. 3D post processing was performed CONTRAST: Isovue 370 VOLUME: 100 mL One or more dose reduction techniques were used (e.g., Automated exposure control, adjustment of the mA and/or kV according to patient size, use of iterative reconstruction technique). RADIATION DOSE SUMMARY: CTDlvol: 76.1 mGy DLP: 673 mGycm COMPARISON: CTA chest on 02/20/2025 FINDINGS: Lymph nodes: Left paratracheal node measuring 1.4 cm in short axis (series 2, image 176), unchanged. Heart: Borderline cardiomegaly. No pericardial effusion. Thoracic Aorta: Motion limits evaluation. No evidence of aneurysm or dissection. Calcified atherosclerosis. Pulmonary Vessels: No large central pulmonary emboli are identified. Contrast timing is suboptimal for evaluation of more distal branches. Lungs and Airways: Central airways are clear. Extensive centrilobular and paraseptal emphysema. Biapical scarring. Linear consolidation at the posterior lung bases, [id number]. Unchanged solid nodules in the right upper lobe measuring 1.2 x 0.4 cm (series 2, image 235), and in the right lower lobe measuring 3 mm (images 110 and 71). Pleura: No effusion Upper Abdomen: Hepatic steatosis. Subcentimeter hypodensity in the left hepatic lobe is too small to characterize. There are hypodense lesions in the spleen measuring up to 2.9 cm in size. Calcification in the right adrenal gland, also unchanged. Aortic atherosclerosis. Bones: Degenerative changes of the thoracic spine. Soft tissues: Unremarkable. CT/CTA Chest W/WO Contrast IMPRESSION: 1. Markedly limited exam, without evidence of central pulmonary embolism. Con invertebrate paleontologist repeating this exam if there is persistent concern for a more distal embolism. 2. Similar appearance of the lungs compared to CT on 02/20/2025, to include so lid pulmonary nodules measuring up to 1.2 cm in size. Recommend repeat CT in 6-12 months, and Pulmonology referral if not alre lisa performed. 3. Multiple hypodense lesions in the spleen measuring up to 2.[address] abdomen and pelvis for further evaluation, particularly if the patient has a history of malignancy or associat ed symptoms. Reading Location: [id number]
[2025-05-13 13:53] LABS: Hematocrit 34.1 % (37-47); Hemoglobin 10.1 g/dL (12.0-15.0); Immature Granulocytes Count 0.070 X10^3/uL (0.0-0.0); Mean Corp Hgb Conc 29.6 g/dL (32-36); Mean Corpuscular Volume 101.2 fL (81-99); Mean Platelet Vol. 11.1 fl (6.2-12.0); NRBC Flagged by Analyzer 0 % (0-5); Platelet Count 115 K/mm3 (150-450); RBC Distribution Width CV 15.3 % (11.6-14.6); RBC Distribution Width SD 56.6 fl (35.1-43.9); Red Blood Count 3.37 M/mm3 (4.2-5.4); White Blood Count 10.1 K/mm3 (4.4-11.0)
[2025-05-13 14:28] LABS: Troponin T High Sensitivity < 6 ng/L (<=14)
[2025-05-13 14:48] LABS: Pro- Brain NATRIURETIC PEPTIDE 2554 pg/mL (<=900)
[2025-05-13 14:49] LABS: AST(SGOT) 27 U/L (<=31); Alanine Aminotransfer ALT/SGPT 18 U/L (<=34); Albumin, Serum 3.1 g/dL (3.4-4.8); Alkaline Phosphatase 121 U/L (35-104); Anion Gap 14 (5-15); BUN 25 mg/dL (4-19); BUN/Creat Ratio 43.3 RATIO (10-20); Calcium,Total 8.8 mg/dL (7.6-11.0); Carbon Dioxide 36.5 mmol/L (21.0-32.0); Chloride 93 mmol/L (98-108); Estimated Creatinine Clearance 86.37 ml/min (50-250); Globulin 3.9 g/dL (2.2-4.2); Glucose 97 mg/dL (70-99); Potassium 4.7 mmol/L (3.3-5.1)
--- NOTE | 2025-05-13 18:16 | HP.PCM.HOS_ITS ---
[facility] - General General Date of Admission: 05/13/25 Date of Service: 05/13/25 Chief Complaint: Worsening shortness of breath and leg swelling [facility] Narrative RAJENDRA MARTINEZ, is a 69 F who presented to [facility] ED on 05/13/2025 with worsening shortness of breath and leg swelling. Medical history is significant for COPD with chronic respiratory failure on 3.5 L at rest and 6 L on exertion, ROXY not on PAP therapy, HFpEF, A-fib/flutter on Eliquis, hypertension, hyperlipidemia and alcohol use. She was recently hospitalized here from 04/23-04/27 for atrial flutter with RVR and mild COPD exacerbation from a suspected viral infection. She saw cardiology in the office on 05/07 and was instructed to increase her home Lasix to 60 mg twice daily for 5 days and start Farxiga 10 mg daily. She did not have much improvement in urine output and continues to report worsening shortness of breath and leg swelling, so she came in today for further evaluation. In the ED she was noted to be in A-fib/flutter with rate in the 90s to 100s, normotensive but requiring high flow nasal cannula to maintain appropriate oxygen saturations. ABG showed pH 7.36, pCO2 92, PO2 85 on nasal cannula. BNP 2554, essentially stable from BNP 2566 on 05/07. Troponins negative x 2. CBC and BMP were fairly benign. CTA chest showed no PE, did show extensive centrilobular and paraseptal emphysema without pleural effusions or significant vascular congestion noted. Patient was placed on BiPAP at that time and hospitalist was contacted for admission. I saw the patient at bedside in the ED, daughter was present. Patient was alert and oriented x 3 and conversing normally while on the BiPAP. She was tolerating the BiPAP without issue. Notably she was diagnosed with ROXY in the past but she has never worn PAP therapy at night. Does note that she often feels fatigued and foggy mentally in the mornings. She does continue to report lower extremity swelling worse than her normal. Denies any chest pain or shortness of breath currently. Denies any fevers or chills. No other acute concerns currently. Will be admitted for further management. [facility] Medical History Atrial flutter with rapid ventricular response Pulmonary nodule Atrial flutter Shortness of breath ROXY (obstructive sleep apnea) Leiomyoma of uterus Internal hemorrhoids with complication Hypertension Diverticulosis of colon Chronic hypoxemic respiratory failure Alcohol abuse Former smoker On home oxygen therapy Irregular heart beat Atrial fibrillation COPD (chronic obstructive pulmonary disease) Home Medications ?Medication ?Instructions ?Recorded ?Last Taken ?Type Oxygen, Home [Home Oxygen] 2 - 4 lpm QHS sob/copd 10/2804/23/25 History albuterol sulfate 90 mcg/actuation 2 inh inhalation Q6 H PRN shortness 02/19/25 05/13/25 History breath activated powder inhaler of breath fluticasone fur. 200 mcg-umeclid 1 ea inhalation DAILY sob 02/19/25 05/12/25 History 62.5 mcg-vilant 25 mcg inhalat.powder (Trelegy Ellipta) guaifenesin 1,200 mg tablet, 1,200 mg PO BID PRN cough 02/19/25 Unknown History extended release 12 hr (Mucus Relief ER) ipratropium 0.5 mg-albuterol 3 mg 3 ml inhalation Q6H PRN shortness 02/19/25 02/19/25 History (2.5 mg base)/3 mL nebulization of breath soln multivitamin (Daily Multi-Vitamin 1 tab PO DAILY suppl ement 02/19/25 05/12/25 History tablet) sodium chloride 0.65 % nasal spray 1 spray intranasal BID PRN dry 02/19/25 Unknown History aerosol ([place] Saline) nasal passages ascorbic acid (vitamin C) 500 mg 500 mg PO DAILY PRN s upplement 03/30/25 Unknown History capsule cinnamon bark 500 mg capsule 500 mg PO QDAY supplement 03/30/25 05/12/25 History (Cinnamon) mecobalamin (vitamin B12) 1,000 1,000 mcg PO QDAY supp lement 03/30/25 05/12/25 History mcg chewable tablet nystatin 100,000 unit/gram topical 1 applic topical BI D skin rash 04/23/25 05/12/25 History cream apixaban 5 mg tablet (Eliquis) 5 mg PO BID blood thinn er #180 tabs 05/07/25 05/12/25 Rx atorvastatin 40 mg tablet 40 mg PO QHS #90 tabs 05/12/25 Rx dapagliflozin propanediol 10 mg 10 mg PO QAM #30 tabs 05/07/25 05/12/25 Rx tablet (Farxiga) diltiazem HCl 180 mg 180 mg PO Q12 #180 caps 04/2705/12/25 Rx capsule,extended release 24 hr furosemide 40 mg tablet 40 mg PO BID diuretic #180 t abs 05/07/25 05/12/25 Rx metoprolol tartrate 50 mg tablet 50 mg PO BID blood pr essure #180 05/07/25 05/12/25 Rx tabs potassium chloride 20 mEq 20 meq PO BID supplement #18 0 tabs 05/07/25 05/12/25 Rx tablet,extended release(part/cryst) (Klor-Con M) amiodarone 200 mg tablet 200 mg PO DAILY Afib 5 05/12/25 History Allergy/AdvReac Type Severity Reaction Status Date / Time ibuprofen (From Advil) Allergy Mild Hives Verified 05/13/25 13:10 nitrofurantoin (From Allergy Rash Verified 05/13/25 13:10 Macrobid) Family History Father Cancer Mother COPD (chronic obstructive pulmonary disease) Alcoholism Grandmother Hypertension Thyroid disorder Surgical History History of surgery History of colonoscopy History of lumpectomy of right breast Hx of inguinal herniorrhaphy Social History household members: none Smoking Status: Former smoker how long ago did patient quit smoking: Quit 15 years prior, smoked 1 pack/day since she been 16 until she quit. alcohol intake: current alcohol intake frequency: 0-2 drinks per day Alcohol type: hard liquor details: Hard liquor mixed drinks, previously heavier, down to 2 drinks daily. substance use type: does not use caffeine: Yes ROS Constitutional Constitutional: Reports fatigue; Denies chills, fever(s) or weakness Eyes Eyes: Denies change in vision Cardiovascular Cardiovascular: Denies chest pain Respiratory/Chest Respiratory/Chest: Reports shortness of breath with exertion; Denies cough, shortness of breath at rest or wheezing Gastrointestinal Gastrointestinal: Denies abdominal pain Musculoskeletal Musculoskeletal: Denies arthralgias or myalgias Vital Signs Vital Signs Vital Signs: 05/13/25 13:10 05/13/25 13:15 05/13/25 13:30 Temperature 98.7 F Temperature Source Oral Pulse Rate 109 H 105 H 101 H Respiratory Rate 26 H 27 H 25 H Respiratory Pattern Blood Pressure 132/99 H 147/55 H Blood Pressure Mean 110 82 Pulse Ox 87 82 96 Oxygen Delivery Method Nasal Cannula Oxygen Flow Rate (L/min) 3 Fraction of Inspired Oxygen (FIO2) 05/13/25 13:45 05/13/25 13:56 05/13/25 13:56 Temperature Temperature Source Pulse Rate 98 101 H Respiratory Rate 28 H 24 H Respiratory Pattern Tachypnea Tachypnea Blood Pressure 124/65 H Blood Pressure Mean 76 Pulse Ox 93 Oxygen Delivery Method Oxygen Flow Rate (L/min) Fraction of Inspired Oxygen (FIO2) 40 05/13/25 14:00 05/13/25 14:15 05/13/25 14:30 Temperature Temperature Source Pulse Rate 98 109 H Respiratory Rate 26 H 26 H Respiratory Pattern Blood Pressure 141/62 H 139/64 H 132/49 H Blood Pressure Mean 86 87 67 Pulse Ox 85 89 Oxygen Delivery Method Oxygen Flow Rate (L/min) Fraction of Inspired Oxygen (FIO2) 05/13/25 14:45 05/13/25 15:00 05/13/25 15:15 Temperature Temperature Source Pulse Rate 98 105 H 105 H Respiratory Rate 32 H 21 H 28 H Respiratory Pattern Blood Pressure 138/54 H 152/49 H 182/83 H Blood Pressure Mean 79 74 104 Pulse Ox 94 95 96 Oxygen Delivery Method Oxygen Flow Rate (L/min) Fraction of Inspired Oxygen (FIO2) 05/13/25 15:30 05/13/25 15:45 05/13/25 16:00 Temperature Temperature Source Pulse Rate 112 H 109 H 109 H Respiratory Rate 27 H 28 H 27 H Respiratory Pattern Blood Pressure 183/81 H 159/76 H 130/62 H Blood Pressure Mean 104 100 73 Pulse Ox 95 96 90 Oxygen Delivery Method Oxygen Flow Rate (L/min) Fraction of Inspired Oxygen (FIO2) Weight Weight: 118.4 kg Body Mass Index (BMI) 44.8 Physical Exam Const alert, oriented x3 and no apparent distress Constitutional Narrative: Elderly female, class III obesity, mildly fatigued appearing, breathing comfortably on BiPAP and answering questions appropriately, sitting back comfortably in bed, in no acute distress. General Appearance: cooperative and comfortable HEENT normocephalic, head/scalp atraumatic, hearing grossly normal bilaterally, nasal mucous membranes and turbinates normal and moist oral mucous membranes HEENT Narrative: BiPAP in place. Eyes PERRL, EOMs intact bilaterally and conjunctivae normal Neck full ROM Chest inspection of chest normal Resp normal respiratory effort and no use of accessory muscles Resp Narrative: Breathing comfortably on BiPAP at rest. Diminished breath sounds noted throughout but no wheezing or crackles noted. Cardio regular rate, regular rhythm, no murmurs and peripheral pulses 2+ throughout GI normal to inspection, nondistended, normoactive bowel sounds, soft to palpation, non-tender and non-distended Back/Spine normal ROM Extremity Extremity Narrative: +1-2 lower extremity pitting edema noted. Skin no rashes or lesions noted Psych mental status grossly normal Results Lab / Micro Data 05/13/25 13:40 05/13/25 13:40 Labs: Laboratory Results - last 24 hr 05/13/25 13:40: WBC 10.1, RBC 3.37 L, Hgb 10.1 L, Hct 34.1 L, MCV 101.2 H, MCH 30.0, MCHC 29.6 L, RDW Std Deviation 56.6 H, RDW Coeff of Karly 15.3 H, Plt Count 115 L, MPV 11.1, Immature Gran % (Auto) 0.700, Neut % (Auto) 85.1 H, Lymph % (Auto) 6.1 L, [place] % (Auto) 7.4, Eos % (Auto) 0.1, Baso % (Auto) 0.6, Absolute Neuts (auto) 8.6 H, Absolute Lymphs (auto) 0.61 L, Nucleated RBC % 0, Sodium 143, Potassium 4.7, Chloride 93 L, Carbon Dioxide 36.5 H, Anion Gap 14, BUN 25 H , Creatinine 0.58 L, Estim Creat Clear Calc 86.37, Est GFR (MDRD) Non-Af 99, B UN/Creatinine Ratio 43.3 H, Glucose 97, Calcium 8.8, Total Bilirubin 0.51, AST 27, ALT 18, Alkaline Phosphatase 121 H, Troponin T High Sens < 6, NT pro BNP II 2554 H, Total Protein 7.0, Albumin 3.1 L, Globulin 3.9, Albumin/Globulin Ratio 0.8 L ABG Data ABG results: ABG 05/13/25 13:33 Specimen Type ART Sample Site R Radial pH 7.36 Bicarbonate Actual 52.6 H Total CO2 > 50 Base Excess 27 H O2 Saturation 95 O2 % 15.0 ABG pCO2 92.9 H* ABG pO2 85 Gurjit Test Positive O2 Delivery Device Cannula Vent Mode Not entered Crit Call To/Read Back Yes Blood Gas Notified Whom trang Blood Gas Notified Time 13:37:54 Imaging Radiology Impression Chest CTA 05/13/25 13:49 IMPRESSION: 1. Markedly limited exam, without evidence of central pulmonary embolism. Consider repeating this exam if there is persistent concern for a more distal embolism. 2. Similar appearance of the lungs compared to CT on 02/20/2025, to include solid pulmonary nodules measuring up to 1.2 cm in size. Recommend repeat CT in 6-12 months, and Pulmonology referral if not already performed. 3. Multiple hypodense lesions in the spleen measuring up to 2.[address] abdomen and pelvis for further evaluation, particularly if the patient has a history of malignancy or associated symptoms. Reading Location: [id number] Assessment & Plan Assessment/Plan (1) Acute and chronic respiratory failure with hypercapnia: (2) Acute on chronic heart failure with preserved ejection fraction (HFpEF): PLAN: Plan Patient is a 69-year-old female who presented to [facility] ED on 05/13/2025 with worsening shortness of breath and lower extremity swelling. 1. Acute on chronic hypercapnic respiratory failure ? Admit under inpatient status to PCU. Suspect multifactorial due to acute on chronic HFpEF and untreated ROXY as below. ABG on admit with pH 7.36 but pCO2 92. Patient on 3.5 L at rest and 6 L on exertion at baseline. CTA chest showed no PE and no pleural effusions with mild vascular congestion, did note severe centrilobular emphysematous changes. Placed on BiPAP in the ED for hypercapnia with improvement in work of breathing. Will transition off BiPAP this evening but then plan to keep patient on BiPAP overnight and with naps while inpatient. Recommend discussing with case management on getting patient set up for repeat sleep study shortly after discharge. Continue home inhalers. 2. Acute on chronic HFpEF ? Mild vascular congestion on chest imaging and +1-2 lower extremity pitting edema on exam noted. BNP 2554, though notably BNP was 2566 on 05/07. However, patient was on Lasix 60 mg twice daily without much improvement. Will treat with IV Lasix 40 mg twice daily for now, monitor daily BMP and urine output. Continue home dapagliflozin. 3. Class III obesity with ROXY not on home PAP therapy ? BMI 45 on admit. Complicates hospital course and care. Patient reports having sleep study done in the past but did not think she could tolerate PAP therapy and has never had a PAP machine at home. Continue PAP therapy at night and with naps while inpatient as noted above. Will need sleep study shortly after discharge. 4. Paroxysmal A-fib/flutter on Eliquis, hypertension, hyperlipidemia, history of VTE ? Follows with outpatient cardiology. In rate controlled atrial flutter with rate in the 100s on admit. EKG showed atrial flutter with rate 106 bpm. Normotensive to hypertensive in the ED. Continue home Eliquis, amiodarone, diltiazem, Lopressor and atorvastatin. 5. Alcohol abuse ? Patient reports drinking 2 alcoholic drinks daily and on chart review, she reported 2 drinks a day during recent admission at the end of March. However, daughter noted that there are days where patient will drink 4-[address] on CIWA protocol without medications for now. Monitor. 6. History of tobacco abuse ? Encouraged continued cessation. DVT prophylaxis: Not indicated, on Eliquis CODE STATUS: Full code, verified Expected disposition: Home, 2 to 3 days Total clinical time spent by myself addressing the patient's medical issues, reviewing all the data, and collaborating with patient's care team: 75 minutes. Charges/Coding Visit Charges Inpatient E&M: 12262 Init Hosp L3
[2025-05-13 18:39] LABS: Troponin T High Sens 2 HR < 6 ng/L (<=14)
--- OUTSIDE RECORDS SUMMARY | 2025-05-13 20:58 | XMS RPT_ITS | CCD ---
Author Organization [facility] Care Team Providers Care Rim Technician Name Role Phone MARGOT GALVAN Unavailable Unavailable MARGOT GALVAN Unavailable Unavailable MARGOT GALVAN Unavailable Unavailable Phuc Martines DO Primary Care Provider Phuc Martines DO Primary Care Provider Phuc Martines DO Primary Care Provider Phuc Martines DO Primary Care Provider Hodan Christine PA-C Unavailable Phuc Martines DO Primary Care Provider Ad MANUFACTURING ENGINEER MACHINING.AIRCRAFT ARMORER, Vicky Person Unavailable Fernando MANUFACTURING ENGINEER MACHINING.Pratibha GAN Unavailable Dr. Phuc Martines DO Primary Care Provider Dr. Linwood Ivy DO Emergency Provider Errol ARELLANO, Dr. Mejía Admit Provider Dr. Kym Norton MD Other Provider Robert ARELLANO, Dr. Yee Queen Attending Provider Dr. Claudia Valerio DO Other Provider Dr. Claudia Valerio DO Attending Provider Dr. Mercy Purvis MD Attending Provider Dr. Yee Jones MD Other Provider Dr. Phuc Martines DO Referring Provider Dr. Bryan Elena MD Attending Provider Meena MANUFACTURING ENGINEER MACHINING.AIRCRAFT ARMORERTyra Unavailable Madan ARELLANO, Dr. Williamson Emergency Provider Martinez ARELLANO, Dr. Virginia Ceron Admit Provider [phone] Martinez ARELLANO, Dr. Virginia Ceron Attending Provider Martinez ARELLANO, Dr. Virginia Ceron Other Provider Collin ARELLANO, Dr. Vazquez Attending Provider Collin ARELLANO, Dr. Vazquez Other Provider HARPSTER, MARICRUZ Attending Unavailable HARPSTER, MARICRUZ Referring [...] Unavailable MARTINES, PHUC L Primary Care Unavailable KLEVERLOGJANETTE SALAS Attending Unavailable MARTINES, PHUC L Primary Care Unavailable MARTINES, PHUC L Primary Care Unavailable DAMON EUGENE Attending Unavailable TRESSA GONZALEZ Attending Unavailable MARTINES, PHUC L Primary Care Unavailable TYRA CARSON Attending Unavailable MARTINES, PHUC L Primary Care Unavailable RAJENDRA GOODMAN Attending Unavailable MARTINES, PHUC L Primary Care Unavailable RAJENDRA GOODMAN Attending Unavailable MARTINES, PHUC L Primary Care Unavailable HARPSTER, MARICRUZ Referring Unavailable MARTINES, PHUC L Primary Care Unavailable Kim Arellano Attending Provider [phone] Kim Arellano Referring Provider [phone] Kim Price Attending Unavailable Martines, Phuc Primary Care Unavailable Kim Price Referring Unavailable Yee Jones Attending Unavailable Kym Norton Admitting Unavailable Kym Norton Consulting Unavailable Martines, Phuc Primary Care Unavailable Claudia Valerio Consulting Unavailable Virginia Henriquez Consulting Unavailable Martines, Phuc Primary Care Unavailable George Polanco Attending Unavailable White, Virginia L Admitting Unavailable White, Virginia L Admitting Unavailable White, Virginia L Consulting Unavailable Martines, Phuc Primary Care Unavailable George Polanco Attending Unavailable George Polanco Consulting Unavailable Kym Norton Admitting Unavailable Kym Norton Attending Unavailable Norton, Kym Consulting Unavailable Martines, Phuc Primary Care Unavailable Claudia Valerio Attending Unavailable Claudia Valerio Consulting Unavailable Yee Jones Bernice Attending Unavailable Joséam Yee Bernice Consulting Unavailable Virginia Henriquez L Attending Unavailable Martines, Phuc Primary Care Unavailable Mercy Purvis Attending Unavailable Martines, Phuc Primary Care Unavailable Martines, Phuc Referring Unavailable Kim Price Attending Unavailable Bryan Elena Attending Unavailable Martines, Phuc Primary Care Unavailable Martines, Phuc Referring Unavailable Dr. Nicko Vallejo DO Admit Provider [phone] Dr. Nicko Vallejo DO Attending Provider Allergies Allergy Classification Reported Allergen(s) Allergy Type Date of Onset Reaction(s) Facility (20 sources) Naproxen; Translations: [NAPROXEN] Drug Allergy 0 [facility] Work Phone: (7 sources) Ibuprofen Drug Allergy 5 [facility] (7 sources) Nitrofurantoin Drug Allergy 5 [facility] (1 source) Ibuprofen Drug Allergy 5 [facility] (1 source) Nitrofurantoin Drug Allergy 5 [facility] Medications Current Medications Medication [...] Chronic obstructive pulmonary disease, unspecified COPD type ([facility]) , Acute bronchitis with chronic obstructive pulmonary disease (COPD) (HCC) ([facility]) , Acute otitis media, left Take 1 tablet by mouth two times a day for 10 days. 20 tablet 0 03/13/2024 03/23/2024 Active apixaban 5 mg oral tablet (19 sources) Factor Xa Inhibitor Start: 02-24-20 End: 05-07-20 25 take 1 tablet by mouth twice daily Apixaban (Eliquis) 5 mg tablet Active 5 mg PO TWICE A DAY 180 May 07, 2025 2:13pm blood thinner ascorbic acid 500 mg oral capsule (13 sources) Vitamin C Start: 11-13-19 18 End: [...] on above: Take 1 capsule by mo [facility] once daily. atorvastatin 40 mg oral tablet (9 sources) HMG-CoA Reductase Inhibitor Start: 5 End: 5 take 1 tablet by mouth at bedtime Atorvastatin 40 mg tablet Active 40 mg PO AT BEDTIME 90 May 07, 2025 2:14pm cinnamon bark 500 mg oral capsule (15 sources) Start: take 1 capsule by mouth once daily [...] with exertion. dapagliflozin 10 mg oral tablet (5 sources) Sodium-Glucose Cotransporter 2 Inhibitor Start: 05-07-20 take 1 tablet by mouth once daily in the morning Dapagliflozin Propanediol (Farxiga) 10 mg tablet Active 10 mg PO EVERY MORNING 30 May 07, 2025 12:00am 24 hr dilTIAZem hydrochloride 180 mg extended release oral capsule (9 sources) Calcium Channel Stefanie Start: 04-26-20 End: [...] above: Take 1 tablet by vikash th twice daily for 10 days. fluconazole 150 mg oral tablet (1 source) Azole Antifungal Start: 04-01-2024 End: 04-04-2024 fluconazole (DIFLUCAN) 150 mg tablet Take 1 tablet by mouth once daily for 3 days. Repeat in 3 days as needed. 3 tablet 1 04/01/2024 04/04/2024 Active Srzzfotsral-Hnjdhchfe-Iw lanter (7 sources) Start: 02-19-2025 Tnxiyihxmhe-Mpslpywky-X ilanter (Trelegy Ellipta) 200-62.5-25 mcg blister with device Active 1 NMA INHALATION DAILY February 19, 2025 12:00am sob Start: 02-19-2025 Fluticasone-Um eclidin-Vilanter (Trelegy Ellipta) 200-62.5-25 mcg blister with device Active 1 NMA INHALATION DAILY February 19, 2025 12:00am lgtivwrpzpo-wzursykml-bfjxhf er (TRELEGY ELLIPTA) 200-62.5-25 mcg inhalation powder (15 sources) Start: 12-25-2024 take 1 puff(s) by inhalation once daily yozrgkfesvb-dzggzwzfe-oddlbald (TRELEGY ELLIPTA) 200-62.5-25 mcg inhalation powder Inhale 1 Puff as instructed once daily. 60 Each 12/25/2024 Active furosemide 40 mg oral tablet (19 sources) L o o p D i u r e t i c Start: 02-23-2025 End: 05-07-2025 take 1 tablet by mouth twice daily Furosemide 40 mg tablet Active 40 mg PO TWICE A DAY 180 3 May 07, 2025 2:14pm diuretic guaiFENesin 1200 mg oral tab let (18 sources) Start: 09-28-2022 take 2 tablets by [...] on above: Take 2 tablets by mo [facility] twice daily. mecobalamin 1 mg chewable tablet (15 sources) Start: 03-30-2025 take 1 tablet by mouth once daily Mecobalamin (Vitamin B12) 1,000 mcg tablet,chewable Active 1000 ug PO daily March 30, 2025 12:00am supplement take 1000 ug by mouth once daily mecobalamin (B12 ACTIVE ORAL) Take 1,000 mcg by mouth once daily. Active metoprolol tartrate 50 mg oral tablet (19 sources) beta-Adrenergic Stefanie Start: 02-23-2025 End: 05-07-2025 take 1 tablet by mouth twice daily Metoprolol Tartrate 50 mg tablet Active 50 mg PO TWICE A DAY 180 3 May 07, 2025 2:13pm blood pressure Multivitamin (Daily Multi-Vitamin) tablet (7 sources) Start: 02-19-2025 Multivitamin (Daily Multi-Vitamin) tablet [...] on above: Take 1 tablet by vikash once daily. mupirocin 0.02 mg/mg topical ointment (1 source) RNA Synthetase Inhibitor Antibacterial Start: 01-29-2024 End: 02-08-2024 mupirocin (BACTROBAN) 2 % ointment Indications: Skin infection Apply to affected area three times a day for 10 days. 22 g 0 01/29/2024 02/08/2024 Active Comment on above: Apply to affected ar ea three times a day for 10 days. nystatin 611038 unt/ml topical cream (20 sources) Polyene Antifungal [...] 05/01/2022 Discontinued Start: 04-17-2017 End: 02-19-2025 take [id number] [IU] by mouth four times daily Nystatin 500,000 UNIT/5 ML suspension Discontinued [id number] U PO 4 TIMES DAILY 1 0 April 17, 2017 12:00am February 19, 2025 2:18pm 1 week supply Comment on above: Apply 1 application to affected area four times daily. Oxygen, Home (Home Oxygen) (7 sources) Start: 11-13-2017 Oxygen, Home (Home Oxygen) [...] chloride 20 meq extended release oral tablet (19 sources) Start: 02-23-2025 End: 05-07-2025 Potassium Chloride (Klor-Con M20) 20 mEq tablet,ER particles/crystals Active 20 meq PO TWICE A DAY 180 May 07, 2025 2:13pm supplement sodium chloride 0.111 meq/ml nasal spray (20 sources) Start: 02-19-2025 Sodium Chloride ([place] Saline) 0.65 % aerosol,spray Active 1 NMA INTRANASAL TWICE A DAY as needed for dry nasal passages February 19, 2025 12:00am Start: 02-09-2022 End: 05-11-2023 sodium chloride 0.9 % (flush ) 10 mL (BD POSIFLUSH) Completed/Discontinued Medications Medication Drug Class(es) Dates Sig (Normalized) Sig (Original) Albuterol Sulfate (Proair Hfa) 1 PUFF inhaler (7 sources) Start: 04-15-2017 End: 02-19-2025 Albuterol Sulfate [...] on above: Take 1 tablet by vikash once daily. Beclomethasone Diprop Inhaler (7 sources) Corticosteroid Start: 017 End: take 1 [...] on above: Take 1 capsule by mo [facility] three times daily as needed for cough. cephalexin 500 mg oral capsule (8 sources) Cephalosporin Antibacterial Start: 05-06-2024 End: 02-19-2025 [...] on above: Take 1 capsule by mo [facility] three times a day for 7 days. 30 actuat fluticasone furoate 0.1 mg/actuat / umeclidinium 0.0625 mg/actuat / vilanterol 0.025 mg/actuat dry powder inhaler (20 sources) Anticholinergic, Corticosteroid, beta2-Adrenergic Agonist Start: 12-03-2023 End: 12-25-2024 qltyqlrfkrn-bdtbgswmc-ifj anter (TRELEGY ELLIPTA) 100-62.5-25 mcg inhalation powder Indications: Chronic obstructive pulmonary disease, unspecified COPD type (HCC) USE 1 INHALATION DAILY INSTRUCTED 3 Each 3 11/27/2024 12/25/2024 Discontinued (Course of therapy completed) Start: 12-06-2021 End: 12-04-2022 sreyyazqrom-tbyawhkiy-ipvmbx er (TRELEGY ELLIPTA) 100-62.5-25 mcg inhalation powder [...] Comment on above: Take 1 capsule by [facility] once daily. ipratropium bromide 0.2 mg/ml [...] over 5-15minutes. levoFLOXacin 500 mg oral tablet (7 sources) Quinolone Antimicrobial Start: End: take 1 tablet by mouth once daily Levofloxacin 500 MG tablet Discontinued 500 mg PO DAILY April 17, 2017 12:00am February 19, 2025 2:18pm Multivitamin (Daily Multiple) 1 EACH tablet (7 sources) Start: End: take 1 tablet by mouth once daily Multivitamin (Daily Multiple) 1 EACH tablet Discontinued 1 NMA PO DAILY April 15, 2017 12:00am February 19, 2025 2:17pm nitrofurantoin, macrocrystals 25 mg / nitrofurantoin, monohydrate 75 mg oral capsule (8 sources) Nitrofuran Antibacterial Start: End: take 1 [...] injection (DEFINITY) predniSONE 10 mg oral tablet (9 sources) Start: End: Prednisone 10 MG tablets,dose [...] daily for 3 days with food. Salmeterol (7 sources) beta2-Adrenergic Agonist Start: End: take 1 puff(s) by inhalation every twelve hours Salmeterol (Serevent Diskus) 1 PUFF inhaler Discontinued 1 NMA INHALATION EVERY 12 HOURS April 15, 2017 12:00am February 19, 2025 2:18pm Tiotropium [place] (Spiriva With Handihaler) 1 PUFF inhaler (7 sources) Start: End: take 1 puff(s) by inhalation once daily Tiotropium [place] (Spiriva With Handihaler) 1 PUFF inhaler Discontinued [...] Date Documented Da te Episodic/Chronic Alcohol-related disorders (12 sources) Alcohol abuse; Translations: [Alcohol abuse, uncomplicated] [...] unspecified] Onset: 04-23-2025 04-23-2025 Episodic Cardiac dysrhythmias (7 sources) Cardiac dysrhythmias Chronic obstructive pulmonary disease and bronchiectasis (20 sources) Chronic obstructive pulmonary disease, unspecified; Translations: [Chronic obstructive lung disease] Onset: 02-03-2010 Resolved: 10-13-2019 Chronic Chronic obstructive pulmonary disease and bronchiectasis (4 sources) Chronic obstructive pulmonary disease and bronchiectasis Coma; stupor; and brain damage (2 sources) Daytime somnolence; Translations: [Somnolence] Onset: 03-10-2025 03-10-2025 Episodic Congestive heart failure; nonhypertensive (5 sources) Congestive heart failure; Translations: [Heart failure, [...] deficiency, unspecified] Onset: 01-30-2022 Chronic Other aftercare (2 sources) Post-discharge follow-up; Translations: [Encounter for follow-up examination after completed treatment for conditions other than malignant neoplasm] 03-01-2025 Episodic Other aftercare (1 source) Encounter for follow-up examination after completed treatment for conditions other than malignant neoplasm; Translations: [Hospital discharge follow-up] Onset: 03-01-2025 Episodic Other aftercare (3 sources) Long-term current use of anticoagulant; Translations: [ferry terminal agent (current) use of anticoagulants] 05-03-2025 Episodic Other aftercare (1 source) ferry terminal agent (current) use of anticoagulants; Translations: [ferry terminal agent (current) use of anticoagulants] Onset: 05-07-2025 Episodic Other connective tissue disease (3 sources) Swelling of lower limb; Translations: [Other specified soft tissue disorders] 05-03-2025 Episodic Other connective tissue disease (1 source) Other specified soft tissue disorders; Translations: [Other specified soft tissue disorders] Onset: 05-07-2025 Episodic Other gastrointestinal disorders (20 sources) Irritable bowel syndrome; Translations: [Irritable bowel syndrome without diarrhea] Onset: 08-13-2008 05-13-2009 Chronic Other hematologic conditions (4 sources) Splenic cyst; Translations: [Cyst of spleen] Episodic Other liver diseases (1 source) Alkaline phosphatase raised; Translations: [Abnormal levels of other serum enzymes] 05-12-2025 Episodic Other lower respiratory disease (19 sources) Dyspnea; Translations: [Dyspnea, unspecified] Episodic Other lower respiratory disease (6 sources) Multiple nodules of lung; Translations: [Other nonspecific abnormal finding of lung field] 12-26-2023 Episodic Other lower respiratory disease (14 sources) Dyspnea on exertion; Translations: [Other forms of dyspnea] 02-19-2025 Episodic Other lower respiratory disease (2 sources) Shortness of breath; Translations: [Shortness of breath] Onset: 05-07-2025 Episodic Other lower respiratory disease (2 sources) Other forms of dyspnea; Translations: [Other forms of dyspnea] Onset: 02-23-2025 Episodic Other nutritional; endocrine; and [...] due to excess calories] 06-13-2023 Chronic Other skin disorders (1 source) Eruption; Translations: [...] 10-05-2011 Episodic Skin and subcutaneous tissue infections (9 sources) Infection of skin; Translations: [Local infection of the skin and subcutaneous tissue, unspecified] 01-29-2024 Episodic Unclassified (7 sources) see to establish care for lung disease as seen per CT Unclassified (11 sources) I48.92 - Unspecified atrial flutter Unclassified (4 sources) APPOINTMENT WITH ANTIONETTE BLOWING ENGINEER Urinary tract infections (2 sources) Acute cystitis; [...] [Erythema intertrigo] Onset: 05-01-2022 05-01-2022 Episodic Other lower respiratory disease (20 sources) Hypoxemia; Translations: [Hypoxemia] Onset: 02-03-2010 02-03-2010 Episodic Other nutritional; endocrine; and metabolic disorders (20 sources) Obesity; Translations: [Obesity, unspecified] Onset: 05-04-2006 Resolved: 10-13-2019 10-13-2019 Chronic Other screening for suspected conditions (not mental disorders or infectious disease) (20 sources) Encounter for screening for malignant neoplasm of colon; Translations: [Patient encounter status] Onset: 08-27-2018 Resolved: 10-13-2019 Episodic Other skin disorders (20 sources) Actinic keratosis; Translations: [Actinic keratosis] Onset: 05-19-2019 05-19-2019 Episodic Other skin disorders (15 sources) Loss of hair; Translations: [Nonscarring hair loss, unspecified] Onset: 01-20-2025 01-20-2025 Episodic Other skin disorders (1 source) Nonscarring hair loss, unspecified; Translations: [Hair thinning] Onset: 01-20-2025 Episodic Substance-related disorders (20 sources) Tobacco user; Translations: [Nicotine dependence, unspecified, uncomplicated] Resolved: 10-05-2011 10-05-2011 Chronic Results Test Name Value Interpretation Reference Range Facility Absolute lymphocyte countOrd ered By: Malika Hernandez on 05-13-2025 Lymphocytes Auto (Unsp spec) [#/Vol] 0.61 10*3/uL Low 0.83-4.51 [facility] Absolute neutrophil countOrd ered By: Malika Hernandez on 05-13-2025 Neutrophils (Bld) [#/Vol] 8.6 10*3/uL High 2.0-7.7 [facility] Anion gap in Serum or Plasma Ordered By: Malika Hernandez on 05-13-2025 Anion gap [Moles/Vol] 14 mmol/L 5-15 [facility] Assessment of wrist artery p atency prior to arterial punctureOrdered By: Linwood Ivy on 05-13-2025 Arterial patency Wrist artery --pre arterial puncture Positive [facility] Automated lymphocyte count a s percentage of total leukocytesOrdered By: Malika Hernandez on 05-13-2025 Lymphocytes/100 WBC Auto (Unsp spec) 6.1 % Low 19-41 [facility] BUN/creatinine ratioOrdered By: Malika Hernandez on 05-13-2025 Urea nitrogen/Creatinine [Mass ratio] 43.3 mg/mg High 10-20 [facility] Basophil percentageOrdered B y: Malika Hernandez on 05-13-2025 Basophils/100 WBC (Bld) 0.6 % 0-1 [facility] Bilirubin, totalOrdered By: Malika Hernandez on 05-13-2025 Bilirubin [Mass/Vol] 0.51 mg/dL 0.00-1.30 [facility] Blood base excess determinat ionOrdered By: Linwood Ivy on 05-13-2025 Base excess Calc (BldV) [Moles/Vol] 27 mmol/L High -2-2 [facility] Blood bicarbonate measuremen tOrdered By: Linwood Ivy on 05-13-2025 HCO3 (Bld) [Moles/Vol] 52.6 mmol/L High 22-26 [facility] Carbon dioxide, total [Moles /volume] in Central venous bloodOrdered By: Malika Hernandez on 05-13-2025 CO2 [Moles/Vol] 36.5 mmol/L High 21.0-32.0 [facility] Chloride assayOrdered By: Yuri Hernandez on 05-13-2025 Chloride [Moles/Vol] 93 mmol/L Low 98-108 [facility] Eosinophil percentageOrdered By: Malika Hernandez on 05-13-2025 Eosinophils/100 WBC (Bld) 0.1 % 0-5 [facility] Erythrocyte distribution wid th ratioOrdered By: Malika Hernandez on 05-13-2025 Erythrocyte distribution width (RBC) [Ratio] 15.3 % High 11.6-14.6 [facility] Erythrocyte distribution wid th standard deviationOrdered By: Malika Hernandez on 05-13-2025 Erythrocyte distribution width (RBC) [Ratio] 56.6 fl High 35.1-43.9 [facility] Glomerular filtration rate ( GFR) estimation/1.73 sq m using serum, plasma, or whole bOrdered By: Malika Hernandez on 05-13-2025 GFR/1.73 sq M.predicted among non-blacks MDRD (S/P/Bld) [Vol rate/Area] 99 mL/min/{1.73_m2} >60 [facility] Comment on above: mL/min/1.73m2 CKD-EP I Creatinine Equation (2020) Hematocrit Auto (Bld) [Volum e fraction]Ordered By: Malika Hernandez on 05-13-2025 Hematocrit (Bld) [Volume fraction] 34.1 % Low 37-47 [facility] Hemoglobin measurementOrdere d By: Malika Hernandez on 05-13-2025 Hemoglobin (Bld) [Mass/Vol] 10.1 g/dL Low 12.0-15.0 [facility] Immature granulocytes/100 WB C Auto (Bld)Ordered By: Malika Hernandez on 05-13-2025 Immature granulocytes/100 WBC (Bld) 0.700 % 0.0-0.9 [facility] Comment on above: IG% - Immature Granu locytes (promyelocytes, myelocytes and metamyelocytes) > 1% indicates that a LEFT SHIFT is Present. Laboratory - Chemistry and C hemistry - challengeOrdered By: Malika Hernandez on 05-13-2025 AST [Catalytic activity/Vol] 27 U/L <32 [facility] Comment on above: Hemolysis present, R esults could be affected. MCV (mean corpuscular volume ) determinationOrdered By: Malika Hernandez on 05-13-2025 MCV (RBC) [Entitic vol] 101.2 fL High 81-99 [facility] Mean corpuscular hemoglobin (MCH) determinationOrdered By: Malika Hernandez on 05-13-2025 MCH (RBC) [Entitic mass] 30.0 pg 27.0-32.0 [facility] Mean corpuscular hemoglobin concentration (MCHC) determinationOrdered By: Malika Hernandez on 05-13-2025 MCHC (RBC) [Mass/Vol] 29.6 g/dL Low 32-36 [facility] Mean platelet volume determi nationOrdered By: Malika Hernandez on 05-13-2025 Platelet mean volume (Bld) [Entitic vol] 11.1 fL 6.2-12.0 [facility] Measurement, pHOrdered By: Yonatan Ivy on 05-13-2025 pH (Unsp spec) 7.36 [pH] 7.35-7.45 [facility] Monocyte percentageOrdered B y: Malika Hernandez on 05-13-2025 Monocytes/100 WBC (Bld) 7.4 % 0-10 [facility] Natriuretic peptide.B prohor gonzalo N-Terminal [Mass/volume] in Serum or PlasmaOrdered By: Malika Hernandez on 05-13-2025 Natriuretic peptide.B prohormone N-Terminal [Mass/Vol] 2554 pg/mL High <900 [facility] Comment on above: Heart Failure Unlike ly: < 300 pg/mLHeart Failure Likely< 50 Years: > 450 pg/mL50-75 Years: > 900 pg/mL>75 Years: > 1800 pg/mL Neutrophil percentageOrdered By: Malika Hernandez on 05-13-2025 Neutrophils/100 WBC (Bld) 85.1 % High 47-70 [facility] No Panel InformationOrdered By: Linwood Ivy on 05-13-2025 Bld Gas Crit Called To/Read Back By Yes [facility] Blood Gas Notified Time 13:37:54 [facility] Blood Gas Notified Whom trang [facility] Blood Gas Sample Site R Radial [facility] Blood Gas Specimen Type ART [facility] Blood Gas Vent Mode Not entered [facility] Oxygen Delivery Device Cannula [facility] Nucleated red blood cell per centageOrdered By: Malika Hernandez on 05-13-2025 Nucleated RBC/100 WBC (Bld) [Ratio] 0 % 0-5 [facility] Platelet countOrdered By: Yuri Hernandez on 05-13-2025 Platelets (Bld) [#/Vol] 115 10*3/uL Low 150-450 [facility] Potassium measurement (mass/ volume)Ordered By: Malika Hernandez on 05-13-2025 Potassium (Unsp spec) [Mass/Vol] 4.7 mmol/L 3.3-5.1 [facility] Comment on above: Hemolysis present, R esults could be affected. RBC Auto (Bld) [#/Vol]Ordere d By: Malika Hernandez on 05-13-2025 RBC (Bld) [#/Vol] 3.37 10*6/uL Low 4.2-5.4 [facility] Serum creatinine measurement (mass/volume)Ordered By: Malika Hernandez on 05-13-2025 Creatinine [Mass/Vol] 0.58 mg/dL Low 0.70-1.20 [facility] Serum globulin measurementOr dered By: Malika Hernandez on 05-13-2025 Globulin (S) [Mass/Vol] 3.9 g/dL 2.2-4.2 [facility] Serum glucose measurement (m ass/volume)Ordered By: Malika Hernandez on 05-13-2025 Glucose [Mass/Vol] 97 mg/dL 70-99 [facility] Serum or plasma alanine lindsey otransferase (ALT) measurementOrdered By: Malika Hernandez on 05-13-2025 ALT [Catalytic activity/Vol] 18 U/L <35 [facility] Comment on above: Hemolysis present, R esults could be affected. Serum or plasma albumin tad urement (mass/volume)Ordered By: Malika Hernandez on 05-13-2025 Albumin [Mass/Vol] 3.1 g/dL Low 3.4-4.8 [facility] Serum or plasma albumin/glob ulin mass ratioOrdered By: Malika Hernandez on 05-13-2025 Albumin/Globulin [Mass ratio] 0.8 {ratio} Low 0.9-2.4 [facility] [facility] Serum or plasma alkaline zita sphatase measurementOrdered By: Malika Hernandez on 05-13-2025 ALP [Catalytic activity/Vol] 121 U/L High 35-104 [facility] Serum or plasma calcium tad urement (mass/volume)Ordered By: Malika Hernandez on 05-13-2025 Calcium [Mass/Vol] 8.8 mg/dL 7.6-11.0 [facility] Serum or plasma urea nitroge n measurement (mass/volume)Ordered By: Malika Hernandez on 05-13-2025 Urea nitrogen [Mass/Vol] 25 mg/dL High 4-19 [facility] Sodium levelOrdered By: Malika Hernandez on 05-13-2025 Sodium [Moles/Vol] 143 mmol/L 133-145 [facility] Total proteinOrdered By: Violeta Hernandez on 05-13-2025 Protein [Mass/Vol] 7.0 g/dL 5.9-8.4 [facility] Troponin T.cardiac [Mass/vol ume] in Serum or Plasma by High sensitivity methodOrdered By: Malika Hernandez on 05-13-2025 Troponin T.cardiac High sensitivity method [Mass/Vol] < 6 ng/L <14 [facility] Troponin T.cardiac High sensitivity method [Mass/Vol] < 6 ng/L <14 [facility] Comment on above: Hemolysis present, R esults could be affected. White blood cell (WBC) count Ordered By: Malika Hernandez on 05-13-2025 WBC (Bld) [#/Vol] 10.1 10*3/uL 4.4-11.0 [facility] Comprehensive metabolic 2000 panelon 05-11-2025 Albumin [Mass/Vol] 3.2 g/dL Low 3.9 - 4.9 g/dL [facility] ALP [Catalytic activity/Vol] 147 U/L High 34 - 123 U/L [facility] ALT [Catalytic activity/Vol] 21 U/L 7 - 38 U/L [facility] Anion gap [Moles/Vol] 11 mmol/L 8 - 15 mmol/L [facility] AST [Catalytic activity/Vol] 28 U/L 13 - 35 U/L [facility] Comment on above: Results may be false ly increased due to interference from hemolysis. Suggest reorder as clinically indicated. Bilirubin [Mass/Vol] 0.5 mg/dL 0.2 - 1 .3 mg/dL [facility] Calcium [Mass/Vol] 9.5 mg/dL 8.5 - 10. 2 mg/dL [facility] Chloride [Moles/Vol] 91 mmol/L Low 98 - 10 7 mmol/L [facility] CO2 [Moles/Vol] 39 mmol/L High 22 - 30 mmol/L [facility] Creatinine [Mass/Vol] 0.59 mg/dL 0.58 - 0.96 mg/dL [facility] GFR/1.73 sq M.predicted among non-blacks MDRD (S/P/Bld) [Vol rate/Area] 99 mL/min/{1.73_m2} - PINF [facility] Comment on above: Estimated Glomerular Filtration Rate (eGFR) is calculated using the 2020 CKD-EPI creatinine equation. This equation utilizes serum creatinine, sex, and age as parameters. The creatinine assay has traceable calibration to isotope dilution-mass spectrometry. Refer to KDIGO guidelines for clinical interpretation. In patients with unstable renal function, e.g. those with acute kidney injury, the eGFR may not accurately reflect actual GFR. Glucose [Mass/Vol] 113 mg/dL High 74 - 99 mg/dL [facility] Comment on above: The [place] Diab[employer] s Association (ADA) provides guidance for cutoff values [...] Standards of Medical Care in Diabetes 2016, [place] [employer]. Diabetes Care. 2016.39(Suppl 1). Interpretation and review of laboratory results Abnormal [facility] Potassium [Moles/Vol] 4.6 mmol/L 3.7 - 5.1 mmol/L [facility] Protein [Mass/Vol] 7.5 g/dL 6.3 - 8.0 g/dL [facility] Sodium [Moles/Vol] 141 mmol/L 136 - 144 mmol/L [facility] Urea nitrogen [Mass/Vol] 20 mg/dL 7 - 21 mg/dL [facility] Absolute lymphocyte countOrd ered By: Kim Price on 05-07-2025 Lymphocytes Auto (Unsp spec) [#/Vol] 0.78 10*3/uL Low 0.83-4.51 [facility] Absolute neutrophil countOrd ered By: Kim Price on 05-07-2025 Neutrophils (Bld) [#/Vol] 8.2 10*3/uL High 2.0-7.7 [facility] Anion gap in Serum or Plasma Ordered By: Kim Price on 05-07-2025 Anion gap [Moles/Vol] 10 mmol/L 5-15 [facility] Automated lymphocyte count a s percentage of total leukocytesOrdered By: Kim Price on 05-07-2025 Lymphocytes/100 WBC Auto (Unsp spec) 7.8 % Low 19-41 [facility] BUN/creatinine ratioOrdered By: Kim Price on 05-07-2025 Urea nitrogen/Creatinine [Mass ratio] 23.3 mg/mg High 10-20 [facility] Basic Metabolic Profile (BMP )on 05-07-2025 BUN/CRE 23.3 RATIO High 08-16 [facility] Comment on above: Performed By: #### L 100.0100, L500.2500, L503.2545 ####[facility] [address] [place], [address] Calcium [Mass/Vol] 9.8 mg/dL Normal 7.6-11.0 [facility] Comment on above: Performed By: #### L 100.0100, L500.2500, L503.7505 ####[facility] [address] [place], [address] Chloride [Moles/Vol] 91 mmol/L Low 98-108 [facility] Comment on above: Performed By: #### L 100.0100, L500.2500, L503.7505 ####[facility] [address] [place], [address] CO2 [Moles/Vol] 41.3 mmol/L High 21.0-32.0 [facility] Comment on above: Performed By: #### L 100.0100, L500.2500, L503.7505 ####[facility] [address] [place], [address] Creatinine [Mass/Vol] 0.69 mg/dL Low 0.70-1.20 [facility] Comment on above: Performed By: #### L 100.0100, L500.2500, L503.7505 ####[facility] [address] [place], [address] GAP 10 Normal 5-15 [facility] Comment on above: Performed By: #### L 100.0100, L500.2500, L503.7505 ####[facility] [address] [place], [address] GFR/1.73 sq M.predicted among non-blacks MDRD (S/P/Bld) [Vol rate/Area] 95 mL/min/{1.73_m2} Normal >60 [facility] Comment on above: Result Comment: mL/m in/1.73m2 CKD-EPI Creatinine Equation (2020) Performed By: #### L 100.0100, L500.2500, L503.7505 ####[facility] [address] [place], [address] Glucose [Mass/Vol] 118 mg/dL High 70-99 [facility] Comment on above: Performed By: #### L 100.0100, L500.2500, L503.7505 ####[facility] [address] [place], [address] Potassium [Moles/Vol] 4.3 mmol/L Normal 3.3-5.1 [facility] Comment on above: Performed By: #### L 100.0100, L500.2500, L503.7505 ####[facility] [address] [place], [address] Sodium [Moles/Vol] 142 mmol/L Normal 133-145 [facility] Comment on above: Performed By: #### L 100.0100, L500.2500, L503.7505 ####[facility] [address] [place], [address] Urea nitrogen [Mass/Vol] 16 mg/dL Normal 4-19 [facility] Comment on above: Performed By: #### L 100.0100, L500.2500, L503.7505 ####[facility] [address] [place], [address] Basophil percentageOrdered B y: Kim Price on 05-07-2025 Basophils/100 WBC (Bld) 0.6 % 0-1 [facility] CBC W/Diff, Automatedon 04-27 Absolute Lymph 0.78 X10 3/uL Low 0.83-4.51 [facility] Comment on above: Performed By: #### L 100.0100, L500.2500, L503.7505 ####[facility] [address] [place], [address] Absolute Neut 8.2 X10 3/uL High 2.0-7.7 [facility] Comment on above: Performed By: #### L 100.0100, L500.2500, L503.7505 ####[facility] [address] [place], [address] Basophils/100 WBC (Bld) 0.6 % Normal 0-1 [facility] Comment on above: Performed By: #### L 100.0100, L500.2500, L503.7505 ####[facility] [address] [place], [address] Eosinophils/100 WBC (Bld) 0.7 % Normal 0-5 [facility] Comment on above: Performed By: #### L 100.0100, L500.2500, L503.7505 ####[facility] [address] [place], [address] Erythrocyte distribution width (RBC) [Ratio] 14.6 % Normal 11.6-14.6 [facility] Comment on above: Performed By: #### L 100.0100, L500.2500, L503.7505 ####[facility] [address] [place], [address] Hematocrit (Bld) [Volume fraction] 36.9 % Low 37-47 [facility] Comment on above: Performed By: #### L 100.0100, L500.2500, L503.7505 ####[facility] [address] [place], [address] Hemoglobin (Bld) [Mass/Vol] 11.0 g/dL Low 12.0-15.0 [facility] Comment on above: Performed By: #### L 100.0100, L500.2500, L503.7505 ####[facility] [address] [place], [address] IG% 0.600 Normal 0.0-0.9 [facility] Comment on above: Result Comment: IG% - Immature Granulocytes (promyelocytes, myelocytes and metamyelocytes) > 1% indicates that a LEFT SHIFT is Present. Performed By: #### L 100.0100, L500.2500, L503.7505 ####[facility] [address] [place], [address] Lymphocytes/100 WBC (Bld) 7.8 % Low 19-41 [facility] Comment on above: Performed By: #### L 100.0100, L500.2500, L503.7505 ####[facility] [address] [place], [address] MCH (RBC) [Entitic mass] 30.3 pg Normal 27.0-32.0 [facility] Comment on above: Performed By: #### L 100.0100, L500.2500, L503.7505 ####[facility] [address] [place], [address] MCHC (RBC) [Mass/Vol] 29.8 g/dL Low 32-36 [facility] Comment on above: Performed By: #### L 100.0100, L500.2500, L503.7505 ####[facility] [address] [place], [address] MCV (RBC) [Entitic vol] 101.7 fL High 81-99 [facility] Comment on above: Performed By: #### L 100.0100, L500.2500, L503.7505 ####[facility] [address] [place], [address] Monocytes/100 WBC (Bld) 8.3 % Normal 0-10 [facility] Comment on above: Performed By: #### L 100.0100, L500.2500, L503.7505 ####[facility] [address] [place], [address] Neutrophils/100 WBC (Bld) 82.0 % High 47-70 [facility] Comment on above: Performed By: #### L 100.0100, L500.2500, L503.7505 ####[facility] [address] [place], [address] Nucleated RBC (Bld) [#/Vol] 0 10*3/uL Normal 0-5 [facility] Comment on above: Performed By: #### L 100.0100, L500.2500, L503.7505 ####[facility] [address] [place], [address] Platelet mean volume (Bld) [Entitic vol] 10.6 fL Normal 6.2-12.0 [facility] Comment on above: Performed By: #### L 100.0100, L500.2500, L503.7505 ####[facility] [address] [place], [address] Platelets (Bld) [#/Vol] 291 10*3/uL Normal 150-450 [facility] Comment on above: Performed By: #### L 100.0100, L500.2500, L503.7505 ####[facility] [address] [place], [address] RBC (Bld) [#/Vol] 3.63 10*6/uL Low 4.2-5.4 [facility] Comment on above: Performed By: #### L 100.0100, L500.2500, L503.7505 ####[facility] [address] [place], [address] RDW SD 54.4 fl High 35.1-43.9 [facility] Comment on above: Performed By: #### L 100.0100, L500.2500, L503.7505 ####[facility] [address] [place], [address] WBC (Bld) [#/Vol] 10.0 10*3/uL Normal 4.4-11.0 [facility] Comment on above: Performed By: #### L 100.0100, L500.2500, L503.7505 ####[facility] [address] [place], [address] Carbon dioxide, total [Moles /volume] in Central venous bloodOrdered By: Kim Price on 05-07-2025 CO2 [Moles/Vol] 41.3 mmol/L High 21.0-32.0 [facility] Cardiology Visit Reporton Cardiology Visit Report [facility] [address] [place] [address] OFFICE VISIT Date of Service: 05/07/25 MR#: [id number] Acct: [id number] Name: RAJENDRA LUCERO Rep #: [id number] : 1955 Provider: LISA monsivais Age/Sex: 69/F Location: [facility] Status: Signed HPI HPI History of Present Illness Details: This is a pleasant 69-year-old female who presents to the office today for cardiovascular follow-up visit. She was previously seen for new onset atrial flutter. Patient was evaluated emergency department at [facility] February 19, 2025. She had been noticing [...] to 50%. An echo done at the [facility] had an EF of 60% from [...] she has COPD requiring home oxygen therapy. From a cardiac standpoint, the patient is doing well. She does acknowledge occasional palpitations- she states she hears this in her ears. This occurs 2-3x a week. She denies chest pain, pressure or heaviness. She does acknowledge SOB-worsening. She denies Orthopnea, and PND. She does not have bleeding issues; no blood in urine, stool, or nosebleeds. She does acknowledge a decrease in energy level since being out of the hospital. She denies myalgias, or claudication. She does acknowledge BLE edema. She does not have sudden weight gain. She does have occasional lightheadedness with quick positional changes. She denies dizziness, syncopal or near syncopal episodes, and headaches. She states she is seeing EP next week. Intake Vital Signs 04/23/25 22:47 05/07/25 13:37 Height 5 ft 4 in 5 ft 4 in Weight: 259 lb BMI 44.4 BP 101/65 Blood Pressure Location Lt brachial Position Sitting Respiration 20 H Pulse 75 Pulse Source Monitor Pulse Oximetry (%) 82 Oxygen Delivery Method nasal canula Oxygen Flow Rate (L/min) 2 Intake Visit Reasons: Per Dr. Elena, see clinical note. 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 200 mcg-umeclid 1 ea inhalation DAILY sob 02/19/25 05/07/25 History 62.5 mcg-vilant 25 mcg inhalat.powder (Trelegy Ellipta) guaifenesin 1,200 mg tablet, 1,200 mg PO BID PRN cough 02/19/25 05/07/25 History extended release 12 hr (Mucus Relief ER) ipratropium 0.5 mg-albuterol 3 mg 3 ml inhalation Q6H PRN shortness 02/19/25 05/07/25 History (2.5 mg base)/3 mL nebulization of breath soln multivitamin (Daily Multi-Vitamin 1 tab PO DAILY supplement 5 05/07/25 History tablet) sodium chloride 0.65 % nasal spray 1 spray intranasal BID PRN dry 0 02/19/25 05/07/25 History aerosol (Cimarron Saline) nasal passages ascorbic acid (vitamin C) 500 mg 500 mg PO DAILY PRN supplement 01/1905/07/25 History capsule cinnamon bark 500 mg capsule 500 mg PO QDAY supplement 03/30/25 05/07/25 History (Cinnamon) mecobalamin (vitamin B12) 1,000 1,000 mcg PO QDAY supplement 03/3005/07/25 History mcg chewable tablet nystatin 100,000 unit/gram topical 1 applic topical BID skin rash 0 04/23/25 05/07/25 History cream apixaban 5 mg tablet (Eliquis) 5 mg PO (more content not included)... Normal [facility] Chest PA and Lateralon 05-07 Chest PA and Lateral [facility] [address] [place] [address] Chest PA and Lateral MR#: [id number] Acct: [id number] Name: RAJENDRA LUCERO Rep #: [id number] : 1955 F 69 From: José Miguel moss MD PCP: Dr. 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 FINDINGS: Hardware: None Heart: Mild cardiomegaly. Mediastinum: Calcification in the of the aortic arch. Lungs: There are increased interstitial markings more pronounced at the lung bases which is unchanged. This most likely represents scarring. Emphysematous changes in the upper lobes more on the right side. Bones: The bones are unremarkable. RAD/Chest PA and Lateral IMPRESSION: Findings suggestive of pulmonary scarring. Reading Location: [place] [address] CC: LISA Pirce; Dr. Phuc Martines, DO Valuation Consultant: Signed Normal [facility] Chloride assayOrdered By: Cedrick Price on 05-07-2025 Chloride [Moles/Vol] 91 mmol/L Low 98-108 [facility] Eosinophil percentageOrdered By: Kim Price on 05-07-2025 Eosinophils/100 WBC (Bld) 0.7 % 0-5 [facility] Erythrocyte distribution wid th ratioOrdered By: Kim Price on 05-07-2025 Erythrocyte distribution width (RBC) [Ratio] 14.6 % 11.6-14.6 [facility] Erythrocyte distribution wid th standard deviationOrdered By: Kim Price on 05-07-2025 Erythrocyte distribution width (RBC) [Ratio] 54.4 fl High 35.1-43.9 [facility] Glomerular filtration rate ( GFR) estimation/1.73 sq m using serum, plasma, or whole bOrdered By: Kim Price on 05-07-2025 GFR/1.73 sq M.predicted among non-blacks MDRD (S/P/Bld) [Vol rate/Area] 95 mL/min/{1.73_m2} >60 [facility] Comment on above: mL/min/1.73m2 CKD-EP I Creatinine Equation (2020) Hematocrit Auto (Bld) [Volum e fraction]Ordered By: Kim Price on 05-07-2025 Hematocrit (Bld) [Volume fraction] 36.9 % Low 37-47 [facility] Hemoglobin measurementOrdere d By: Kim Price on 05-07-2025 Hemoglobin (Bld) [Mass/Vol] 11.0 g/dL Low 12.0-15.0 [facility] Immature granulocytes/100 WB C Auto (Bld)Ordered By: Kim Price on 05-07-2025 Immature granulocytes/100 WBC (Bld) 0.600 % 0.0-0.9 [facility] Comment on above: IG% - Immature Granu locytes (promyelocytes, myelocytes and metamyelocytes) > 1% indicates that a LEFT SHIFT is Present. L503.7505on 05-07-2025 Natriuretic peptide B (Bld) [Mass/Vol] 2566 pg/mL High <=900 [facility] Comment on above: Result Comment: Hear t Failure Unlikely: < 300 pg/mL Heart Failure Likely < 50 Years: > 450 pg/mL 50-75 Years: > 900 pg/mL >75 Years: > 1800 pg/mL Performed By: #### L 100.0100, L500.2500, L503.7505 ####[facility] [address] [place], [address] MCV (mean corpuscular volume ) determinationOrdered By: Kim Price on 05-07-2025 MCV (RBC) [Entitic vol] 101.7 fL High 81-99 [facility] Mean corpuscular hemoglobin (MCH) determinationOrdered By: Kim Price on 05-07-2025 MCH (RBC) [Entitic mass] 30.3 pg 27.0-32.0 [facility] Mean corpuscular hemoglobin concentration (MCHC) determinationOrdered By: Kim Price on 05-07-2025 MCHC (RBC) [Mass/Vol] 29.8 g/dL Low 32-36 [facility] Mean platelet volume determi nationOrdered By: Kim Price on 05-07-2025 Platelet mean volume (Bld) [Entitic vol] 10.6 fL 6.2-12.0 [facility] Monocyte percentageOrdered B y: Kim Price on 05-07-2025 Monocytes/100 WBC (Bld) 8.3 % 0-10 [facility] Natriuretic peptide.B prohor gonzalo N-Terminal [Mass/volume] in Serum or PlasmaOrdered By: Kim Price on 05-07-2025 Natriuretic peptide.B prohormone N-Terminal [Mass/Vol] 2566 pg/mL High <900 [facility] Comment on above: Heart Failure Unlike ly: < 300 pg/mLHeart Failure Likely< 50 Years: > 450 pg/mL50-75 Years: > 900 pg/mL>75 Years: > 1800 pg/mL Neutrophil percentageOrdered By: Kim Price on 05-07-2025 Neutrophils/100 WBC (Bld) 82.0 % High 47-70 [facility] Nucleated red blood cell per centageOrdered By: Kim Price on 05-07-2025 Nucleated RBC/100 WBC (Bld) [Ratio] 0 % 0-5 [facility] Platelet countOrdered By: Cedrick Price on 05-07-2025 Platelets (Bld) [#/Vol] 291 10*3/uL 150-450 [facility] Potassium measurement (mass/ volume)Ordered By: Kim Price on 05-07-2025 Potassium (Unsp spec) [Mass/Vol] 4.3 mmol/L 3.3-5.1 [facility] RBC Auto (Bld) [#/Vol]Ordere d By: Kim Price on 05-07-2025 RBC (Bld) [#/Vol] 3.63 10*6/uL Low 4.2-5.4 [facility] Serum creatinine measurement (mass/volume)Ordered By: Kim Price on 05-07-2025 Creatinine [Mass/Vol] 0.69 mg/dL Low 0.70-1.20 [facility] Serum glucose measurement (m ass/volume)Ordered By: Kim Price on 05-07-2025 Glucose [Mass/Vol] 118 mg/dL High 70-99 [facility] Serum or plasma calcium tad urement (mass/volume)Ordered By: Kim Price on 05-07-2025 Calcium [Mass/Vol] 9.8 mg/dL 7.6-11.0 [facility] Serum or plasma urea nitroge n measurement (mass/volume)Ordered By: Kim Price on 05-07-2025 Urea nitrogen [Mass/Vol] 16 mg/dL 4-19 [facility] Sodium levelOrdered By: Odalys Price on 05-07-2025 Sodium [Moles/Vol] 142 mmol/L 133-145 [facility] White blood cell (WBC) count Ordered By: Kim Price on 05-07-2025 WBC (Bld) [#/Vol] 10.0 10*3/uL 4.4-11.0 [facility] Discharge Instruction [facility] Medical Records Department [address] [place] [address] Instructions for Home/Discharge Instructions 04/27/25 1112 MR#: [id number] Acct: [id number] Name: RAJENDRA LUCERO Rep #: [id number] : 1955 69 From: George Polanco MD [...] inhalation Q6H PRN (Reason: shortness of breath) Edmarledwayne Ellipta 200-62.5-25 mcg blister with device 1 ea inhalation DAILY ipratropium-albuterol 0.5 mg-3 mg(2.5 mg base)/3 mL solution for nebulization 3 ml inhalation Q6H PRN (Reason: shortness of breath) multivitamin [Daily Multi-Vitamin] Tablet 1 tab PO DAILY Cimarron Saline 0.65 % aerosol,spray 1 spray intranasal [...] MD; Dr. Phuc Martines DO Signed Normal [facility] Absolute lymphocyte countOrd ered By: George Polanco on 04-26-2025 Lymphocytes Auto (Unsp spec) [#/Vol] 0.48 10*3/uL Low 0.83-4.51 [facility] Absolute neutrophil countOrd ered By: George Polanco on 04-26-2025 Neutrophils (Bld) [#/Vol] 8.0 10*3/uL High 2.0-7.7 [facility] Anion gap in Serum or Plasma Ordered By: George Polanco on 04-26-2025 Anion gap [Moles/Vol] 8 mmol/L 5-15 [facility] Automated lymphocyte count a s percentage of total leukocytesOrdered By: George Polanco on 04-26-2025 Lymphocytes/100 WBC Auto (Unsp spec) 5.2 % Low 19-41 [facility] BUN/creatinine ratioOrdered By: George Polanco on 04-26-2025 Urea nitrogen/Creatinine [Mass ratio] 32.1 mg/mg High 10- [facility] Basic Metabolic Profile (BMP )on 04-26-2025 BUN/CRE 32.1 RATIO High 08-16 [facility] Comment on above: Performed By: #### L 100.0100, L500.2500 ####[facility] [address] [place], [address] Calcium [Mass/Vol] 9.4 mg/dL Normal 7.6-11.0 [facility] Comment on above: Performed By: #### L 100.0100, L500.2500 ####[facility] [address] [place], [address] Chloride [Moles/Vol] 96 mmol/L Low 98-108 [facility] Comment on above: Performed By: #### L 100.0100, L500.2500 ####[facility] [address] [place], [address] CO2 [Moles/Vol] 37.1 mmol/L High 21.0-32.0 [facility] Comment on above: Performed By: #### L 100.0100, L500.2500 ####[facility] [address] [place], [address] Creatinine [Mass/Vol] 0.72 mg/dL Normal 0.70-1.20 [facility] Comment on above: Performed By: #### L 100.0100, L500.2500 ####[facility] [address] [place], [address] ECRCL 85.43 ml/min Normal 50-250 [facility] Comment on above: Performed By: #### L 100.0100, L500.2500 ####[facility] [address] [place], [address] GAP 8 Normal 5-15 [facility] Comment on above: Performed By: #### L 100.0100, L500.2500 ####[facility] [address] [place], [address] GFR/1.73 sq M.predicted among non-blacks MDRD (S/P/Bld) [Vol rate/Area] 92 mL/min/{1.73_m2} Normal >60 [facility] Comment on above: Result Comment: mL/m in/1.73m2 CKD-EPI Creatinine Equation (2020) Performed By: #### L 100.0100, L500.2500 ####[facility] [address] [place], [address] Glucose [Mass/Vol] 125 mg/dL High 70-99 [facility] Comment on above: Performed By: #### L 100.0100, L500.2500 ####[facility] [address] [place], [address] Potassium [Moles/Vol] 4.6 mmol/L Normal 3.3-5.1 [facility] Comment on above: Performed By: #### L 100.0100, L500.2500 ####[facility] [address] [place], [address] Sodium [Moles/Vol] 142 mmol/L Normal 133-145 [facility] Comment on above: Performed By: #### L 100.0100, L500.2500 ####[facility] [address] [place], [address] Urea nitrogen [Mass/Vol] 23 mg/dL High 4-19 [facility] Comment on above: Performed By: #### L 100.0100, L500.2500 ####[facility] [address] [place], [address] Basophil percentageOrdered B y: George Polanco on 04-26-2024 Basophils/100 WBC (Bld) 0.3 % 0-1 [facility] CBC W/Diff, Automatedon 03-30 0-2024 Absolute Lymph 0.48 X10 3/uL Low 0.83-4.51 [facility] Comment on above: Performed By: #### L 100.0100, L500.2500 ####[facility] [address] [place], [address] Absolute Neut 8.0 X10 3/uL High 2.0-7.7 [facility] Comment on above: Performed By: #### L 100.0100, L500.2500 ####[facility] [address] [place], [address] Basophils/100 WBC (Bld) 0.3 % Normal 0-1 [facility] Comment on above: Performed By: #### L 100.0100, L500.2500 ####[facility] [address] [place], [address] Eosinophils/100 WBC (Bld) 0.9 % Normal 0-5 [facility] Comment on above: Performed By: #### L 100.0100, L500.2500 ####[facility] [address] [place], [address] Erythrocyte distribution width (RBC) [Ratio] 14.3 % Normal 11.6-14.6 [facility] Comment on above: Performed By: #### L 100.0100, L500.2500 ####[facility] [address] [place], [address] Hematocrit (Bld) [Volume fraction] 38.8 % Normal 37-47 [facility] Comment on above: Performed By: #### L 100.0100, L500.2500 ####[facility] [address] [place], [address] Hemoglobin (Bld) [Mass/Vol] 11.6 g/dL Low 12.0-15.0 [facility] Comment on above: Performed By: #### L 100.0100, L500.2500 ####[facility] [address] [place], [address] IG% 0.700 Normal 0.0-0.9 [facility] Comment on above: Result Comment: IG% - Immature Granulocytes (promyelocytes, myelocytes and metamyelocytes) > 1% indicates that a LEFT SHIFT is Present. Performed By: #### L 100.0100, L500.2500 ####[facility] [address] [place], [address] Lymphocytes/100 WBC (Bld) 5.2 % Low 19-41 [facility] Comment on above: Performed By: #### L 100.0100, L500.2500 ####[facility] [address] [place], [address] MCH (RBC) [Entitic mass] 30.8 pg Normal 27.0-32.0 [facility] Comment on above: Performed By: #### L 100.0100, L500.2500 ####[facility] [address] [place], [address] MCHC (RBC) [Mass/Vol] 29.9 g/dL Low 32-36 [facility] Comment on above: Performed By: #### L 100.0100, L500.2500 ####[facility] [address] [place], [address] MCV (RBC) [Entitic vol] 102.9 fL High 81-99 [facility] Comment on above: Performed By: #### L 100.0100, L500.2500 ####[facility] [address] [place], [address] Monocytes/100 WBC (Bld) 5.9 % Normal 0-10 [facility] Comment on above: Performed By: #### L 100.0100, L500.2500 ####[facility] [address] [place], [address] Neutrophils/100 WBC (Bld) 87.0 % High 47-70 [facility] Comment on above: Performed By: #### L 100.0100, L500.2500 ####[facility] [address] [place], [address] Nucleated RBC (Bld) [#/Vol] 0 10*3/uL Normal 0-5 [facility] Comment on above: Performed By: #### L 100.0100, L500.2500 ####[facility] [address] [place], [address] Platelet mean volume (Bld) [Entitic vol] 11.1 fL Normal 6.2-12.0 [facility] Comment on above: Performed By: #### L 100.0100, L500.2500 ####[facility] [address] [place], [address] Platelets (Bld) [#/Vol] 266 10*3/uL Normal 150-450 [facility] Comment on above: Performed By: #### L 100.0100, L500.2500 ####[facility] [address] [place], [address] RBC (Bld) [#/Vol] 3.77 10*6/uL Low 4.2-5.4 [facility] Comment on above: Performed By: #### L 100.0100, L500.2500 ####[facility] [address] [place], [address] RDW SD 54.2 fl High 35.1-43.9 [facility] Comment on above: Performed By: #### L 100.0100, L500.2500 ####[facility] [address] [place], [address] WBC (Bld) [#/Vol] 9.2 10*3/uL Normal 4.4-11.0 [facility] Comment on above: Performed By: #### L 100.0100, L500.2500 ####[facility] [address] [place], [address] Carbon dioxide, total [Moles /volume] in Central venous bloodOrdered By: George Polanco on 04-26-2025 CO2 [Moles/Vol] 37.1 mmol/L High 21.0-32.0 [facility] Chloride assayOrdered By: Ashley Polanco on 04-26-2025 Chloride [Moles/Vol] 96 mmol/L Low 98-108 [facility] Discharge Instructionon 03-30 Discharge Instruction [facility] Medical Records Department [address] [place] [address] Instructions for Home/Discharge Instructions 04/26/25 0919 MR#: [id number] Acct: [id number] Name: RAJENDRA LUCERO Rep #: [id number] : 1955 69 From: George Polanco MD [...] [Daily Multi-Vitamin] Tablet 1 tab PO DAILY [place] Saline 0.65 % aerosol,spray 1 spray intranasal [...] cap PO BID Referrals / Follow Up: Yaniv,Mercy, MD [Med Staff - Active Staff] - [...] MD; Dr. Phuc Martines DO Signed Normal [facility] Eosinophil percentageOrdered By: George Polanco on 04-26-2025 Eosinophils/100 WBC (Bld) 0.9 % 0-5 [facility] Erythrocyte distribution wid th ratioOrdered By: George Polanco on 04-26-2025 Erythrocyte distribution width (RBC) [Ratio] 14.3 % 11.6-14.6 [facility] Erythrocyte distribution wid th standard deviationOrdered By: George Polanco on 04-26-2025 Erythrocyte distribution width (RBC) [Ratio] 54.2 fl High 35.1-43.9 [facility] Glomerular filtration rate ( GFR) estimation/1.73 sq m using serum, plasma, or whole bOrdered By: George Polanco on 04-26-2025 GFR/1.73 sq M.predicted among non-blacks MDRD (S/P/Bld) [Vol rate/Area] 92 mL/min/{1.73_m2} >60 [facility] Comment on above: mL/min/1.73m2 CKD-EP I Creatinine Equation (2020) Hematocrit Auto (Bld) [Volum e fraction]Ordered By: George Polanco on 04-26-2025 Hematocrit (Bld) [Volume fraction] 38.8 % 37-47 [facility] Hemoglobin measurementOrdere d By: George Polanco on 04-26-2025 Hemoglobin (Bld) [Mass/Vol] 11.6 g/dL Low 12.0-15.0 [facility] Immature granulocytes/100 WB C Auto (Bld)Ordered By: George Polanco on 04-26-2025 Immature granulocytes/100 WBC (Bld) 0.700 % 0.0-0.9 [facility] Comment on above: IG% - Immature Granu locytes (promyelocytes, myelocytes and metamyelocytes) > 1% indicates that a LEFT SHIFT is Present. MCV (mean corpuscular volume ) determinationOrdered By: George Polanco on 04-26-2025 MCV (RBC) [Entitic vol] 102.9 fL High 81-99 [facility] Mean corpuscular hemoglobin (MCH) determinationOrdered By: George Polanco on 04-26-2025 MCH (RBC) [Entitic mass] 30.8 pg 27.0-32.0 [facility] Mean corpuscular hemoglobin concentration (MCHC) determinationOrdered By: George Polanco on 04-26-2025 MCHC (RBC) [Mass/Vol] 29.9 g/dL Low 32-36 [facility] Mean platelet volume determi nationOrdered By: George Polanco on 04-26-2025 Platelet mean volume (Bld) [Entitic vol] 11.1 fL 6.2-12.0 [facility] Monocyte percentageOrdered B y: George Polanco on 04-26-2025 Monocytes/100 WBC (Bld) 5.9 % 0-10 [facility] Neutrophil percentageOrdered By: George Polanco on 04-26-2025 Neutrophils/100 WBC (Bld) 87.0 % High 47-70 [facility] Nucleated red blood cell per centageOrdered By: George Polanco on 04-26-2025 Nucleated RBC/100 WBC (Bld) [Ratio] 0 % 0-5 [facility] Platelet countOrdered By: Ashley Polanco on 04-26-2025 Platelets (Bld) [#/Vol] 266 10*3/uL 150-450 [facility] Potassium measurement (mass/ volume)Ordered By: George Polanco on 04-26-2025 Potassium (Unsp spec) [Mass/Vol] 4.6 mmol/L 3.3-5.1 [facility] RBC Auto (Bld) [#/Vol]Ordere d By: George Polanco on 04-26-2025 RBC (Bld) [#/Vol] 3.77 10*6/uL Low 4.2-5.4 [facility] Serum creatinine measurement (mass/volume)Ordered By: George Polanco on 04-26-2025 Creatinine [Mass/Vol] 0.72 mg/dL 0.70-1.20 [facility] Serum glucose measurement (m ass/volume)Ordered By: George Polanco on 04-26-2025 Glucose [Mass/Vol] 125 mg/dL High 70-99 [facility] Serum or plasma calcium tad urement (mass/volume)Ordered By: George Polanco on 04-26-2025 Calcium [Mass/Vol] 9.4 mg/dL 7.6-11.0 [facility] Serum or plasma urea nitroge n measurement (mass/volume)Ordered By: George Polanco on 04-26-2025 Urea nitrogen [Mass/Vol] 23 mg/dL High 4-19 [facility] Sodium levelOrdered By: Orlando Polanco on 04-26-2025 Sodium [Moles/Vol] 142 mmol/L 133-145 [facility] White blood cell (WBC) count Ordered By: George Polanco on 04-26-2025 WBC (Bld) [#/Vol] 9.2 10*3/uL 4.4-11.0 [facility] Basic Metabolic Profile (BMP )on 04-25-2025 BUN/CRE 25.0 RATIO High 10-20 [facility] Comment on above: Performed By: #### L 500.4050, L500.4100, L100.0500, L501.9520 #### [facility] [address] [place], [address] Calcium [Mass/Vol] 9.3 mg/dL Normal 7.6-11.0 [facility] Comment on above: Performed By: #### L 500.4050, L500.4100, L100.0500, L501.9520 #### [facility] [address] [place], [address] Chloride [Moles/Vol] 95 mmol/L Low 98-108 [facility] Comment on above: Performed By: #### L 500.4050, L500.4100, L100.0500, L501.9520 #### [facility] [address] [place], [address] CO2 [Moles/Vol] 36.5 mmol/L High 21.0-32.0 [facility] Comment on above: Performed By: #### L 500.4050, L500.4100, L100.0500, L501.9520 #### [facility] [address] [place], [address] Creatinine [Mass/Vol] 0.67 mg/dL Low 0.70-1.20 [facility] Comment on above: Performed By: #### L 500.4050, L500.4100, L100.0500, L501.9520 #### [facility] [address] [place], [address] ECRCL 84.48 ml/min Normal 50-250 [facility] Comment on above: Performed By: #### L 500.4050, L500.4100, L100.0500, L501.9520 #### [facility] [address] [place], [address] GAP 9 Normal 5-15 [facility] Comment on above: Performed By: #### L 500.4050, L500.4100, L100.0500, L501.9520 #### [facility] [address] [place], [address] GFR/1.73 sq M.predicted among non-blacks MDRD (S/P/Bld) [Vol rate/Area] 96 mL/min/{1.73_m2} Normal >60 [facility] Comment on above: Result Comment: mL/m in/1.73m2 CKD-EPI Creatinine Equation (2020) Performed By: #### L 500.4050, L500.4100, L100.0500, L501.9520 #### [facility] [address] [place], [address] Glucose [Mass/Vol] 130 mg/dL High 70-99 [facility] Comment on above: Performed By: #### L 500.4050, L500.4100, L100.0500, L501.9520 #### [facility] [address] [place], [address] Potassium [Moles/Vol] 4.3 mmol/L Normal 3.3-5.1 [facility] Comment on above: Performed By: #### L 500.4050, L500.4100, L100.0500, L501.9520 #### [facility] [address] [place], [address] Sodium [Moles/Vol] 141 mmol/L Normal 133-145 [facility] Comment on above: Performed By: #### L 500.4050, L500.4100, L100.0500, L501.9520 #### [facility] [address] [place], [address] Urea nitrogen [Mass/Vol] 17 mg/dL Normal 4-19 [facility] Comment on above: Performed By: #### L 500.4050, L500.4100, L100.0500, L501.9520 #### [facility] [address] [place], [address] CBC W/Diff, Automatedon 06-2 Absolute Lymph 0.55 X10 3/uL Low 0.83-4.51 [facility] Comment on above: Performed By: #### L 500.4050, L500.4100, L100.0500, L501.9520 #### [facility] [address] [place], [address] Absolute Neut 7.5 X10 3/uL Normal 2.0-7.7 [facility] Comment on above: Performed By: #### L 500.4050, L500.4100, L100.0500, L501.9520 #### [facility] [address] [place], [address] Basophils/100 WBC (Bld) 0.5 % Normal 0-1 [facility] Comment on above: Performed By: #### L 500.4050, L500.4100, L100.0500, L501.9520 #### [facility] [address] [place], [address] Eosinophils/100 WBC (Bld) 1.0 % Normal 0-5 [facility] Comment on above: Performed By: #### L 500.4050, L500.4100, L100.0500, L501.9520 #### [facility] [address] [place], [address] Erythrocyte distribution width (RBC) [Ratio] 14.5 % Normal 11.6-14.6 [facility] Comment on above: Performed By: #### L 500.4050, L500.4100, L100.0500, L501.9520 #### [facility] [address] [place], [address] Hematocrit (Bld) [Volume fraction] 39.3 % Normal 37-47 [facility] Comment on above: Performed By: #### L 500.4050, L500.4100, L100.0500, L501.9520 #### [facility] [address] [place], [address] Hemoglobin (Bld) [Mass/Vol] 11.9 g/dL Low 12.0-15.0 [facility] Comment on above: Performed By: #### L 500.4050, L500.4100, L100.0500, L501.9520 #### [facility] [address] [place], [address] IG% 0.300 Normal 0.0-0.9 [facility] Comment on above: Result Comment: IG% - Immature Granulocytes (promyelocytes, myelocytes and metamyelocytes) > 1% indicates that a LEFT SHIFT is Present. Performed By: #### L 500.4050, L500.4100, L100.0500, L501.9520 #### [facility] [address] [place], [address] Lymphocytes/100 WBC (Bld) 6.3 % Low 19-41 [facility] Comment on above: Performed By: #### L 500.4050, L500.4100, L100.0500, L501.9520 #### [facility] [address] [place], [address] MCH (RBC) [Entitic mass] 30.9 pg Normal 27.0-32.0 [facility] Comment on above: Performed By: #### L 500.4050, L500.4100, L100.0500, L501.9520 #### [facility] [address] [place], [address] MCHC (RBC) [Mass/Vol] 30.3 g/dL Low 32-36 [facility] Comment on above: Performed By: #### L 500.4050, L500.4100, L100.0500, L501.9520 #### [facility] [address] [place], [address] MCV (RBC) [Entitic vol] 102.1 fL High 81-99 [facility] Comment on above: Performed By: #### L 500.4050, L500.4100, L100.0500, L501.9520 #### [facility] [address] [place], [address] Monocytes/100 WBC (Bld) 6.2 % Normal 0-10 [facility] Comment on above: Performed By: #### L 500.4050, L500.4100, L100.0500, L501.9520 #### [facility] [address] [place], [address] Neutrophils/100 WBC (Bld) 85.7 % High 47-70 [facility] Comment on above: Performed By: #### L 500.4050, L500.4100, L100.0500, L501.9520 #### [facility] [address] [place], [address] Nucleated RBC (Bld) [#/Vol] 0 10*3/uL Normal 0-5 [facility] Comment on above: Performed By: #### L 500.4050, L500.4100, L100.0500, L501.9520 #### [facility] [address] [place], [address] Platelet mean volume (Bld) [Entitic vol] 10.1 fL Normal 6.2-12.0 [facility] Comment on above: Performed By: #### L 500.4050, L500.4100, L100.0500, L501.9520 #### [facility] [address] [place], [address] Platelets (Bld) [#/Vol] 286 10*3/uL Normal 150-450 [facility] Comment on above: Performed By: #### L 500.4050, L500.4100, L100.0500, L501.9520 #### [facility] [address] [place], [address] RBC (Bld) [#/Vol] 3.85 10*6/uL Low 4.2-5.4 [facility] Comment on above: Performed By: #### L 500.4050, L500.4100, L100.0500, L501.9520 #### [facility] [address] [place], [address] RDW SD 54.5 fl High 35.1-43.9 [facility] Comment on above: Performed By: #### L 500.4050, L500.4100, L100.0500, L501.9520 #### [facility] [address] [place], [address] WBC (Bld) [#/Vol] 8.7 10*3/uL Normal 4.4-11.0 [facility] Comment on above: Performed By: #### L 500.4050, L500.4100, L100.0500, L501.9520 #### [facility] [address] [place], [address] Bilirubin, totalOrdered By: Virginia Henriquez on 04-24-2025 Bilirubin [Mass/Vol] 0.44 mg/dL 0.00-1.30 [facility] CBC W/Diff, Automatedon 03-29 Absolute Lymph 0.58 X10 3/uL Low 0.83-4.51 [facility] Comment on above: Performed By: #### L 500.4100, L100.0100, L501.9520, L500.4050 ####[facility] [address] [place], [address] Absolute Neut 7.1 X10 3/uL Normal 2.0-7.7 [facility] Comment on above: Performed By: #### L 500.4100, L100.0100, L501.9520, L500.4050 ####[facility] [address] [place], [address] Basophils/100 WBC (Bld) 0.5 % Normal 0-1 [facility] Comment on above: Performed By: #### L 500.4100, L100.0100, L501.9520, L500.4050 ####[facility] [address] [place], [address] Eosinophils/100 WBC (Bld) 1.3 % Normal 0-5 [facility] Comment on above: Performed By: #### L 500.4100, L100.0100, L501.9520, L500.4050 ####[facility] [address] [place], [address] Erythrocyte distribution width (RBC) [Ratio] 14.3 % Normal 11.6-14.6 [facility] Comment on above: Performed By: #### L 500.4100, L100.0100, L501.9520, L500.4050 ####[facility] [address] [place], [address] Hematocrit (Bld) [Volume fraction] 37.8 % Normal 37-47 [facility] Comment on above: Performed By: #### L 500.4100, L100.0100, L501.9520, L500.4050 ####[facility] [address] [place], [address] Hemoglobin (Bld) [Mass/Vol] 11.5 g/dL Low 12.0-15.0 [facility] Comment on above: Performed By: #### L 500.4100, L100.0100, L501.9520, L500.4050 ####[facility] [address] [place], [address] IG% 0.200 Normal 0.0-0.9 [facility] Comment on above: Result Comment: IG% - Immature Granulocytes (promyelocytes, myelocytes and metamyelocytes) > 1% indicates that a LEFT SHIFT is Present. Performed By: #### L 500.4100, L100.0100, L501.9520, L500.4050 ####[facility] [address] [place], [address] Lymphocytes/100 WBC (Bld) 6.8 % Low 19-41 [facility] Comment on above: Performed By: #### L 500.4100, L100.0100, L501.9520, L500.4050 ####[facility] [address] [place], [address] MCH (RBC) [Entitic mass] 30.7 pg Normal 27.0-32.0 [facility] Comment on above: Performed By: #### L 500.4100, L100.0100, L501.9520, L500.4050 ####[facility] [address] [place], [address] MCHC (RBC) [Mass/Vol] 30.4 g/dL Low 32-36 [facility] Comment on above: Performed By: #### L 500.4100, L100.0100, L501.9520, L500.4050 ####[facility] [address] [place], [address] MCV (RBC) [Entitic vol] 100.8 fL High 81-99 [facility] Comment on above: Performed By: #### L 500.4100, L100.0100, L501.9520, L500.4050 ####[facility] [address] [place], [address] Monocytes/100 WBC (Bld) 8.0 % Normal 0-10 [facility] Comment on above: Performed By: #### L 500.4100, L100.0100, L501.9520, L500.4050 ####[facility] [address] [place], [address] Neutrophils/100 WBC (Bld) 83.2 % High 47-70 [facility] Comment on above: Performed By: #### L 500.4100, L100.0100, L501.9520, L500.4050 ####[facility] [address] [place], [address] Nucleated RBC (Bld) [#/Vol] 0 10*3/uL Normal 0-5 [facility] Comment on above: Performed By: #### L 500.4100, L100.0100, L501.9520, L500.4050 ####[facility] [address] [place], [address] Platelet mean volume (Bld) [Entitic vol] 10.9 fL Normal 6.2-12.0 [facility] Comment on above: Performed By: #### L 500.4100, L100.0100, L501.9520, L500.4050 ####[facility] [address] [place], [address] Platelets (Bld) [#/Vol] 276 10*3/uL Normal 150-450 [facility] Comment on above: Performed By: #### L 500.4100, L100.0100, L501.9520, L500.4050 ####[facility] [address] [place], [address] RBC (Bld) [#/Vol] 3.75 10*6/uL Low 4.2-5.4 [facility] Comment on above: Performed By: #### L 500.4100, L100.0100, L501.9520, L500.4050 ####[facility] [address] [place], [address] RDW SD 52.5 fl High 35.1-43.9 [facility] Comment on above: Performed By: #### L 500.4100, L100.0100, L501.9520, L500.4050 ####[facility] [address] [place], [address] WBC (Bld) [#/Vol] 8.5 10*3/uL Normal 4.4-11.0 [facility] Comment on above: Performed By: #### L 500.4100, L100.0100, L501.9520, L500.4050 ####[facility] [address] [place], [address] Calculated very low density lipoprotein (VLDL) cholesterol measurementOrdered By: Virginia Henriquez on 04-24-2025 Calculated very low density lipoprotein (VLDL) cholesterol measurement 19 mg/dL 5-40 [facility] Comprehensive Metabolic Prof ilon 04-24-2025 Albumin [Mass/Vol] 3.3 g/dL Low 3.4-4.8 [facility] Comment on above: Order Comment: Commcamron nts: Fasting Lipid Profile Performed By: #### L 500.4100, L100.0100, L501.9520, L500.4050 ####[facility] [address] [place], [address] Albumin/Globulin [Mass ratio] 1.0 {ratio} Normal 0.9-2.4 [facility] Comment on above: Order Comment: Commcamron nts: Fasting Lipid Profile Performed By: #### L 500.4100, L100.0100, L501.9520, L500.4050 ####[facility] [address] [place], [address] ALK PHOS 112 U/L High 35-104 [facility] Comment on above: Order Comment: Commcamron nts: Fasting Lipid Profile Performed By: #### L 500.4100, L100.0100, L501.9520, L500.4050 ####[facility] [address] [place], [address] ALT [Catalytic activity/Vol] 30 U/L Normal <=34 [facility] Comment on above: Order Comment: Comme nts: Fasting Lipid Profile Performed By: #### L 500.4100, L100.0100, L501.9520, L500.4050 ####[facility] [address] [place], [address] AST [Catalytic activity/Vol] 21 U/L Normal <=31 [facility] Comment on above: Order Comment: Commcamron nts: Fasting Lipid Profile Performed By: #### L 500.4100, L100.0100, L501.9520, L500.4050 ####[facility] [address] [place], [address] Bilirubin [Mass/Vol] 0.44 mg/dL Normal 0.00-1.30 [facility] Comment on above: Order Comment: Comme nts: Fasting Lipid Profile Performed By: #### L 500.4100, L100.0100, L501.9520, L500.4050 ####[facility] [address] [place], [address] BUN/CRE 20.9 RATIO High 10-20 [facility] Comment on above: Order Comment: Commcamron nts: Fasting Lipid Profile Performed By: #### L 500.4100, L100.0100, L501.9520, L500.4050 ####[facility] [address] [place], [address] Calcium [Mass/Vol] 9.4 mg/dL Normal 7.6-11.0 [facility] Comment on above: Order Comment: Commcamron nts: Fasting Lipid Profile Performed By: #### L 500.4100, L100.0100, L501.9520, L500.4050 ####[facility] [address] [place], [address] Chloride [Moles/Vol] 100 mmol/L Normal 98-108 [facility] Comment on above: Order Comment: Comme nts: Fasting Lipid Profile Performed By: #### L 500.4100, L100.0100, L501.9520, L500.4050 ####[facility] [address] [place], [address] CO2 [Moles/Vol] 38.0 mmol/L High 21.0-32.0 [facility] Comment on above: Order Comment: Commcamron nts: Fasting Lipid Profile Performed By: #### L 500.4100, L100.0100, L501.9520, L500.4050 ####[facility] [address] [place], [address] Creatinine [Mass/Vol] 0.63 mg/dL Low 0.70-1.20 [facility] Comment on above: Order Comment: Comme nts: Fasting Lipid Profile Performed By: #### L 500.4100, L100.0100, L501.9520, L500.4050 ####[facility] [address] [place], [address] ECRCL 85.25 ml/min Normal 50-250 [facility] Comment on above: Order Comment: Commcamron nts: Fasting Lipid Profile Performed By: #### L 500.4100, L100.0100, L501.9520, L500.4050 ####[facility] [address] [place], [address] GAP 8 Normal 5-15 [facility] Comment on above: Order Comment: Comme nts: Fasting Lipid Profile Performed By: #### L 500.4100, L100.0100, L501.9520, L500.4050 ####[facility] [address] [place], [address] GFR/1.73 sq M.predicted among non-blacks MDRD (S/P/Bld) [Vol rate/Area] 97 mL/min/{1.73_m2} Normal >60 [facility] Comment on above: Order Comment: Comme nts: Fasting Lipid Profile Result Comment: mL/m in/1.73m2 CKD-EPI Creatinine Equation (2020) Performed By: #### L 500.4100, L100.0100, L501.9520, L500.4050 ####[facility] [address] [place], [address] Globulin (S) [Mass/Vol] 3.3 g/dL Normal 2.2-4.2 [facility] Comment on above: Order Comment: Comme nts: Fasting Lipid Profile Performed By: #### L 500.4100, L100.0100, L501.9520, L500.4050 ####[facility] [address] [place], [address] Glucose [Mass/Vol] 144 mg/dL High 70-99 [facility] Comment on above: Order Comment: Comme nts: Fasting Lipid Profile Performed By: #### L 500.4100, L100.0100, L501.9520, L500.4050 ####[facility] [address] [place], [address] Potassium [Moles/Vol] 4.6 mmol/L Normal 3.3-5.1 [facility] Comment on above: Order Comment: Comme nts: Fasting Lipid Profile Performed By: #### L 500.4100, L100.0100, L501.9520, L500.4050 ####[facility] [address] [place], [address] Sodium [Moles/Vol] 146 mmol/L High 133-145 [facility] Comment on above: Order Comment: Comme nts: Fasting Lipid Profile Performed By: #### L 500.4100, L100.0100, L501.9520, L500.4050 ####[facility] [address] [place], [address] T PROT 6.6 g/dL Normal 5.9-8.4 [facility] Comment on above: Order Comment: Comme nts: Fasting Lipid Profile Performed By: #### L 500.4100, L100.0100, L501.9520, L500.4050 ####[facility] [address] [place], [address] Urea nitrogen [Mass/Vol] 13 mg/dL Normal 4-19 [facility] Comment on above: Order Comment: Comme nts: Fasting Lipid Profile Performed By: #### L 500.4100, L100.0100, L501.9520, L500.4050 ####[facility] [address] [place], [address] L499.0043on 04-24-2025 Trop T High Sen < 6 Normal <=14 [facility] Comment on above: Performed By: #### L 499.0043 ####[facility] [address] [place], [address] LDL calc ser/plasOrdered By: Virginia Henriquez on 04-24-2025 Cholesterol in LDL [Mass/Vol] 81 mg/dL [facility] Comment on above: Soodjpytjq=852-566 m g/dL & Higher Vrjg=373 mg/dL or greater Laboratory - Chemistry and C hemistry - challengeOrdered By: Virginia Henriquez on 04-24-2025 AST [Catalytic activity/Vol] 21 U/L <32 [facility] Lipid Profileon 04-24-2025 CHOL:HDL 3.62 Normal [facility] Comment on above: Order Comment: Comme nts: Fasting Lipid Profile Performed By: #### L 500.4100, L100.0100, L501.9520, L500.4050 ####[facility] [address], [address] Cholesterol [Mass/Vol] 138 mg/dL Normal <=200 [facility] Comment on above: Order Comment: Comme nts: Fasting Lipid Profile Result Comment: Chol esterol level, Desirable <200 mg/dL Borderline high cholesterol 200-239 mg/dL High cholesterol >=240 mg/dL Recommendations of the NCEP Adult Treatment Panel for the following risk-cutoff thresholds for the [place] population. Performed By: #### L 500.4100, L100.0100, L501.9520, L500.4050 ####[facility] [address] [place], [address] Cholesterol in HDL [Mass/Vol] 38 mg/dL Low [facility] Comment on above: Order Comment: Comme nts: Fasting Lipid Profile Result Comment: Monika onal Cholesterol Education Program (NCEP) guidelines: <40 mg/dL: Low HDL-cholesterol (major risk factor for CHD) >= 60 mg/dL: High HDL-cholesterol (negative risk factor for CHD) HDL-cholesterol is affected by a number of factors, e.g. smoking, exercise, hormones, sex and age. Performed By: #### L 500.4100, L100.0100, L501.9520, L500.4050 ####[facility] [address] [place], [address] Cholesterol in LDL [Mass/Vol] 81 mg/dL Normal [facility] Comment on above: Order Comment: Comme nts: Fasting Lipid Profile Result Comment: Bord dkfiad=878-721 mg/dL Higher Dtbk=132 mg/dL or greater Performed By: #### L 500.4100, L100.0100, L501.9520, L500.4050 ####[facility] [address] [place], [address] Cholesterol in VLDL [Mass/Vol] 19 mg/dL Normal 5-40 [facility] Comment on above: Order Comment: Comme nts: Fasting Lipid Profile Performed By: #### L 500.4100, L100.0100, L501.9520, L500.4050 ####[facility] [address] [place], [address] Triglyceride [Mass/Vol] 93 mg/dL Normal [facility] Comment on above: Order Comment: Comme nts: Fasting Lipid Profile Result Comment: The drugs N-Acetylcysteine and Metamizole may falsely depress this assay. Normal range: <150 mg/dL Borderline High: 150-199 mg/dL High: 200-499 mg/dL Very High: >500 mg/dL Performed By: #### L 500.4100, L100.0100, L501.9520, L500.4050 ####[facility] [address] [place], [address] RESPIRATORY PANEL MOLECULARo n 04-24-2025 RP PANEL ADENOVIRUS Not Detected INFLUENZA A Not Detected INFLUENZA A (SUBTYPE H1) Not Detected INFLUENZA A (SUBTYPE H3) Not Detected INFLUENZA B Not Detected HUMAN METAPHNEUMO Not Detected PARAINFLUENZA 1 Not Detected PARAINFLUENZA 2 Not Detected PARAINFLUENZA 3 Not Detected PARAINFLUENZA 4 Not Detected RHINOVIRUS Not Detected RSV A Not Detected RSV B Not Detected Normal [facility] Comment on above: Performed By: #### M 100.638 ####[facility] [address] [place], [address] Respiratory pathogens detect ion panel by molecular detection methodOrdered By: [facility] on 04-24-2025 Respiratory pathogens DNA and RNA panel RENETTA+probe (Resp) [facility] Screening total cholesterol/ high density lipoprotein (HDL) cholesterol ratioOrdered By: [facility] 04-24-2025 Cholesterol.total/Cho lesterol in HDL [Mass ratio] 3.62 {ratio} [facility] Serum globulin measurementOr dered By: [facility] 04-24-2025 Globulin (S) [Mass/Vol] 3.3 g/dL 2.2-4.2 [facility] Serum or plasma alanine lindsey otransferase (ALT) measurementOrdered By: [facility] 04-24-2025 ALT [Catalytic activity/Vol] 30 U/L <35 [facility] Serum or plasma albumin tad urement (mass/volume)Ordered By: [facility] 04-24-2025 Albumin [Mass/Vol] 3.3 g/dL Low 3.4-4.8 [facility] Serum or plasma albumin/glob ulin mass ratioOrdered By: [facility] 04-24-2025 Albumin/Globulin [Mass ratio] 1.0 {ratio} 0.9-2.4 [facility] Serum or plasma alkaline zita sphatase measurementOrdered By: [facility] 04-24-2025 ALP [Catalytic activity/Vol] 112 U/L High 35-104 [facility] Serum or plasma cholesterol in HDL measurement (mass/volume)Ordered By: [facility] 04-24-2025 Cholesterol in HDL [Mass/Vol] 38 mg/dL Low >40 [facility] Comment on above: National Cholesterol Education Program (NCEP) guidelines:<40 mg/dL: Low HDL-cholesterol (major risk factor for CHD)>= 60 mg/dL: High HDL-cholesterol (negative risk factor for CHD)HDL-cholesterol is affected by a number of factors, e.g. smoking, exercise, hormones, sex and age. Serum or plasma cholesterol measurement (mass/volume)Ordered By: Virginia Henriquez on 04-24-2025 Cholesterol [Mass/Vol] 138 mg/dL <201 [facility] Comment on above: Cholesterol level, D esirable <200 mg/dLBorderline high cholesterol 200-239 mg/dLHigh cholesterol >=240 mg/dLRecommendations of the NCEP Adult Treatment Panel for the following risk-cutoff thresholds for the [place] population. TSH DL <= 0.005 mIU/L QnOrde red By: Virginia Henriquez on 04-24-2025 TSH Qn 1.970 uIU/mL 0.300-4.20 0 [facility] Thyroid Stim Hormone (TSH)on 04-24-2025 TSH 1.970 uIU/mL Normal 0.300-4.20 0 [facility] Comment on above: Order Comment: Liz nts: Fasting Lipid Profile Performed By: #### L 500.4100, L100.0100, L501.9520, L500.4050 ####[facility] [address] [place], [address] Total proteinOrdered By: Greg Henriquez on 04-24-2025 Protein [Mass/Vol] 6.6 g/dL 5.9-8.4 [facility] Triglycerides measurementOrd ered By: Virginia Henriquez on 04-24-2025 Triglyceride [Mass/Vol] 93 mg/dL <199 [facility] Comment on above: The drugs N-Acetylcy steine and Metamizole may falsely depress this assay. Normal range: <150 mg/dLBorderline High: 150-199 mg/dLHigh: 200-499 mg/dLVery High: >500 mg/dL Absolute lymphocyte countOrd ered By: Cele Morgan on 04-23-2025 Lymphocytes Auto (Unsp spec) [#/Vol] 0.71 10*3/uL Low 0.83-4.51 [facility] Absolute neutrophil countOrd ered By: Cele Morgan on 04-23-2025 Neutrophils (Bld) [#/Vol] 7.6 10*3/uL 2.0-7.7 [facility] Anion gap in Serum or Plasma Ordered By: Cele Morgan on 04-23-2025 Anion gap [Moles/Vol] 10 mmol/L 5-15 [facility] Automated lymphocyte count a s percentage of total leukocytesOrdered By: Cele Morgan on 04-23-2025 Lymphocytes/100 WBC Auto (Unsp spec) 7.9 % Low 19-41 [facility] BUN/creatinine ratioOrdered By: Cele Morgan on 04-23-2025 Urea nitrogen/Creatinine [Mass ratio] 22.2 mg/mg High 10-20 [facility] Basic Metabolic Profile (BMP )on 04-23-2025 BUN/CRE 22.2 RATIO High - [facility] Comment on above: Performed By: #### L 500.4050, L500.4100, L100.0500, L501.9520 #### [facility] [address] [place], [address] Calcium [Mass/Vol] 9.6 mg/dL Normal 7.6-11.0 [facility] Comment on above: Performed By: #### L 500.4050, L500.4100, L100.0500, L501.9520 #### [facility] [address] [place], [address] Chloride [Moles/Vol] 96 mmol/L Low 98-108 [facility] Comment on above: Performed By: #### L 500.4050, L500.4100, L100.0500, L501.9520 #### [facility] [address] [place], [address] CO2 [Moles/Vol] 38.0 mmol/L High 21.0-32.0 [facility] Comment on above: Performed By: #### L 500.4050, L500.4100, L100.0500, L501.9520 #### [facility] [address] [place], [address] Creatinine [Mass/Vol] 0.65 mg/dL Low 0.70-1.20 [facility] Comment on above: Performed By: #### L 500.4050, L500.4100, L100.0500, L501.9520 #### [facility] [address] [place], [address] ECRCL 85.20 ml/min Normal 50-250 [facility] Comment on above: Performed By: #### L 500.4050, L500.4100, L100.0500, L501.9520 #### [facility] [address] [place], [address] GAP 10 Normal 5-15 [facility] Comment on above: Performed By: #### L 500.4050, L500.4100, L100.0500, L501.9520 #### [facility] [address] [place], [address] GFR/1.73 sq M.predicted among non-blacks MDRD (S/P/Bld) [Vol rate/Area] 97 mL/min/{1.73_m2} Normal >60 [facility] Comment on above: Result Comment: mL/m in/1.73m2 CKD-EPI Creatinine Equation (2020) Performed By: #### L 500.4050, L500.4100, L100.0500, L501.9520 #### [facility] [address] [place], [address] Glucose [Mass/Vol] 110 mg/dL High 70-99 [facility] Comment on above: Performed By: #### L 500.4050, L500.4100, L100.0500, L501.9520 #### [facility] [address] [place], [address] Potassium [Moles/Vol] 3.9 mmol/L Normal 3.3-5.1 [facility] Comment on above: Performed By: #### L 500.4050, L500.4100, L100.0500, L501.9520 #### [facility] [address] [place], [address] Sodium [Moles/Vol] 145 mmol/L Normal 133-145 [facility] Comment on above: Performed By: #### L 500.4050, L500.4100, L100.0500, L501.9520 #### [facility] [address] [place], [address] Urea nitrogen [Mass/Vol] 14 mg/dL Normal 4-19 [facility] Comment on above: Performed By: #### L 500.4050, L500.4100, L100.0500, L501.9520 #### [facility] [address], [address] Basophil percentageOrdered B y: Cele Morgan on 04-23-2025 Basophils/100 WBC (Bld) 0.6 % 0-1 [facility] Bilirubin Test strip Ql (U)O rdered By: Cele Morgan on 04-23-2025 Bilirubin Ql (U) 1 mg/dL High Negative [facility] Comment on above: COLOR OF URINE MAY A FFECT DIPSTICK RESULTS. Brain/Head without Contrasto n 04-23-2025 Brain/Head without Contrast [facility] [address] [place] [address] Brain/Head without Contrast MR#: [id number] Acct: [id number] Name: RAJENDRA LUCERO Rep #: [id number] : 1955 F 69 From: Rustam Drummond MD PCP: Dr. Phuc Martines, DO Status: REG ER Study: Brain/Head without Contrast Date of Exam: 03/29 05/21 Exam# [id number] Ordering Dr: Clay Hager MD EXAM: CT [...] Mild small vessel ischemic/degenerative changes. Reading Location: [facility] CC: Dr. Clay Hager MD; Dr. Phuc Martines DO Valuation Consultant: Signed Normal [facility] CBC W/Diff, Automatedon - Absolute Lymph 0.71 X10 3/uL Low 0.83-4.51 [facility] Comment on above: Performed By: #### L 500.4050, L500.4100, L100.0500, L501.9520 #### [facility] [address] [place], [address] Absolute Neut 7.6 X10 3/uL Normal 2.0-7.7 [facility] Comment on above: Performed By: #### L 500.4050, L500.4100, L100.0500, L501.9520 #### [facility] [address] [place], [address] Basophils/100 WBC (Bld) 0.6 % Normal 0-1 [facility] Comment on above: Performed By: #### L 500.4050, L500.4100, L100.0500, L501.9520 #### [facility] [address] [place], [address] Eosinophils/100 WBC (Bld) 0.8 % Normal 0-5 [facility] Comment on above: Performed By: #### L 500.4050, L500.4100, L100.0500, L501.9520 #### [facility] [address] [place], [address] Erythrocyte distribution width (RBC) [Ratio] 14.2 % Normal 11.6-14.6 [facility] Comment on above: Performed By: #### L 500.4050, L500.4100, L100.0500, L501.9520 #### [facility] [address] [place], [address] Hematocrit (Bld) [Volume fraction] 40.2 % Normal 37-47 [facility] Comment on above: Performed By: #### L 500.4050, L500.4100, L100.0500, L501.9520 #### [facility] [address] [place], [address] Hemoglobin (Bld) [Mass/Vol] 12.7 g/dL Normal 12.0-15.0 [facility] Comment on above: Performed By: #### L 500.4050, L500.4100, L100.0500, L501.9520 #### [facility] [address] [place], [address] IG% 0.300 Normal 0.0-0.9 [facility] Comment on above: Result Comment: IG% - Immature Granulocytes (promyelocytes, myelocytes and metamyelocytes) > 1% indicates that a LEFT SHIFT is Present. Performed By: #### L 500.4050, L500.4100, L100.0500, L501.9520 #### [facility] [address] [place], [address] Lymphocytes/100 WBC (Bld) 7.9 % Low 19-41 [facility] Comment on above: Performed By: #### L 500.4050, L500.4100, L100.0500, L501.9520 #### [facility] [address] [place], [address] MCH (RBC) [Entitic mass] 31.2 pg Normal 27.0-32.0 [facility] Comment on above: Performed By: #### L 500.4050, L500.4100, L100.0500, L501.9520 #### [facility] [address] [place], [address] MCHC (RBC) [Mass/Vol] 31.6 g/dL Low 32-36 [facility] Comment on above: Performed By: #### L 500.4050, L500.4100, L100.0500, L501.9520 #### [facility] [address] [place], [address] MCV (RBC) [Entitic vol] 98.8 fL Normal 81-99 [facility] Comment on above: Performed By: #### L 500.4050, L500.4100, L100.0500, L501.9520 #### [facility] [address] [place], [address] Monocytes/100 WBC (Bld) 6.6 % Normal 0-10 [facility] Comment on above: Performed By: #### L 500.4050, L500.4100, L100.0500, L501.9520 #### [facility] [address] [place], [address] Neutrophils/100 WBC (Bld) 83.8 % High 47-70 [facility] Comment on above: Performed By: #### L 500.4050, L500.4100, L100.0500, L501.9520 #### [facility] [address] [place], [address] Nucleated RBC (Bld) [#/Vol] 0 10*3/uL Normal 0-5 [facility] Comment on above: Performed By: #### L 500.4050, L500.4100, L100.0500, L501.9520 #### [facility] [address] [place], [address] Platelet mean volume (Bld) [Entitic vol] 10.4 fL Normal 6.2-12.0 [facility] Comment on above: Performed By: #### L 500.4050, L500.4100, L100.0500, L501.9520 #### [facility] [address] [place], [address] Platelets (Bld) [#/Vol] 285 10*3/uL Normal 150-450 [facility] Comment on above: Performed By: #### L 500.4050, L500.4100, L100.0500, L501.9520 #### [facility] [address] [place], [address] RBC (Bld) [#/Vol] 4.07 10*6/uL Low 4.2-5.4 [facility] Comment on above: Performed By: #### L 500.4050, L500.4100, L100.0500, L501.9520 #### [facility] [address] [place], [address] RDW SD 51.3 fl High 35.1-43.9 [facility] Comment on above: Performed By: #### L 500.4050, L500.4100, L100.0500, L501.9520 #### [facility] [address] [place], [address] WBC (Bld) [#/Vol] 9.0 10*3/uL Normal 4.4-11.0 [facility] Comment on above: Performed By: #### L 500.4056, L500.4106, L100.3250, L501.9520 #### [facility] [address] [place], [address] CNOVon 04-23-2025 CNOV Office Visit (FAMPWS ) RAJENDRA LUCERO ([id number]) 1955 F Date Time Provider Department 04/23/25 3:00 PM [facility] During your visit today, we recorded the following information about you: Pulse Respiration Blood pressure Weight 129/minute 20/minute 122/62 116.2 kg Tyra Carson, JAKI.AIRCRAFT ARMORER 04/23/2025 4:30 PM Signed This is a 69 year old female who presents today with: Increased confusion Express care follow up Subjective Rajendra Sahni Kingstonesperanza is a 69 year old female. Patient [...] week for further evaluation. and Recording using [employer] software for draft documentation of the visit was discussed with the patient/authorized telesales representative; all questions welcomed and answered. Patient/authorized telesales representative agreed to proceed HISTORY OF PRESENT ILLNESS: Linwood was in the hospital in January for new onset of atrial flutter. She was initiated on eliquis and metoprolol and now being seen by cardiology. She was referred to a [facility] cardio electro doc and is in the [...] disease) (HCC) 02/03/2010 Coronary artery disease No CA, CHF. No heart cath. Diverticulosis of colon [...] 2027 I (more content not included)... Normal [facility] Carbon dioxide, total [Moles /volume] in Central venous bloodOrdered By: Cele Morgan on 04-23-2025 CO2 [Moles/Vol] 38.0 mmol/L High 21.0-32.0 [facility] Chest PA and Lateralon 04-23 Chest PA and Lateral [facility] Imaging Services [address] [place], [place] [address] Chest PA and Lateral MR#: [id number] Acct: [id number] Name: RAJENDRA LUCERO Rep #: [id number] : 1955 F 69 From: Rustam Drummond MD PCP: Dr. Phuc Martines, DO Status: REG ER Study: Chest PA and Lateral Date of Exam: 04/23/25 Exam# [id number] Ordering Dr: Cele Morgan EXAM: XR Chest, 2 Views CLINICAL INDICATION: SOB TECHNIQUE: Frontal and lateral views of the chest. COMPARISON: No relevant prior studies available. FINDINGS: LUNGS AND PLEURAL SPACES: See below. HEART: Cardiomegaly with mild congestion. MEDIASTINUM: Unremarkable. Normal mediastinal contour. BONES/JOINTS: Unremarkable. No acute fracture. RAD/Chest PA and Lateral IMPRESSION: Cardiomegaly with mild congestion. Reading Location: [facility] CC: Dr. Phuc Martines, DO; LEAH Cooley Valuation Consultant: Signed Normal [facility] Chloride assayOrdered By: Celine Morgan on 04-23-2025 Chloride [Moles/Vol] 96 mmol/L Low 98-108 [facility] Emergency Department Summary on 04-23-2025 Emergency Department Summary [facility] Medical Records Department [address] [place] [address] Emergency Department Summary 04/23/25 MR#: [id number] Acct: [id number] Name: RAJENDRA LUCERO Rep #: [id number] : 1955 69 From: Cele LYNN PCP: Dr. Phuc Martines DO Status:ADM IN Location: [place] [address] HPI History of Present Illness Chief Complaint: [...] chest pain, abdominal pain, nausea, and vomiting. [facility] Medical History Pulmonary nodule Atrial flutter Shortness [...] PRN dry 0 02/19/25 Unknown History aerosol (Cimarron Saline) nasal passages triamcinolone acetonide 0.5 % [...] 133/96 H (more content not included)... Normal [facility] Eosinophil percentageOrdered By: Cele Morgan on 04-23-2025 Eosinophils/100 WBC (Bld) 0.8 % 0-5 [facility] Erythrocyte distribution wid th ratioOrdered By: Cele Morgan on 04-23-2025 Erythrocyte distribution width (RBC) [Ratio] 14.2 % 11.6-14.6 [facility] Erythrocyte distribution wid th standard deviationOrdered By: Cele Morgan on 04-23-2025 Erythrocyte distribution width (RBC) [Ratio] 51.3 fl High 35.1-43.9 [facility] Glomerular filtration rate ( GFR) estimation/1.73 sq m using serum, plasma, or whole bOrdered By: Cele Morgan on 04-23-2025 GFR/1.73 sq M.predicted among non-blacks MDRD (S/P/Bld) [Vol rate/Area] 97 mL/min/{1.73_m2} >60 [facility] Comment on above: mL/min/1.73m2 CKD-EP I Creatinine Equation (2020) H AND P Exam - Hospitaliston 04-23-2025 H&P Exam - Hospitalist [facility] Medical Records Department [address] [place] [address] H P Exam - Hospitalist 04/23/25 2149 MR#: [id number] Acct: [id number] Name: RAJENDRA LUCERO Rep #: [id number] : 1955 69 From: Virginia Henriquez MD PCP: Dr. Phuc Martines, DO Status:ADM IN Location: [place] [address] HPI - General General Date of Admission: [...] abuse recently cut back who presents to [facility] ED on 04/23/2025 with history [...] 1 and placed on a diltiazem drip. [facility] Medical History (Updated 04/23/25 @ 22:15 [...] PRN dry 0 02/19/25 Unknown History aerosol (Cimarron Saline) nasal passages triamcinolone acetonide 0.5 % [...] mcg chewabl (more content not included)... Normal [facility] Hematocrit Auto (Bld) [Volum e fraction]Ordered By: Cele Morgan on 04-23-2025 Hematocrit (Bld) [Volume fraction] 40.2 % 37-47 [facility] Hemoglobin measurementOrdere d By: Cele Morgan on 04-23-2025 Hemoglobin (Bld) [Mass/Vol] 12.7 g/dL 12.0-15.0 [facility] Immature granulocytes/100 WB C Auto (Bld)Ordered By: Cele Morgan on 04-23-2025 Immature granulocytes/100 WBC (Bld) 0.300 % 0.0-0.9 [facility] Comment on above: IG% - Immature Granu locytes (promyelocytes, myelocytes and metamyelocytes) > 1% indicates that a LEFT SHIFT is Present. Ketones Test strip Ql (U)Ord ered By: Cele Morgan on 04-23-2025 Ketones Ql (U) 50 mg/dl High Negative [facility] L499.0042on 04-23-2025 Trop T High Sen < 6 Normal <=14 [facility] Comment on above: Performed By: #### L 500.4050, L500.4100, L100.0500, L501.9520 #### [facility] [address] [place], [address] L501.4021on 04-23-2025 Trop T High Sen < 6 Normal <=14 [facility] Comment on above: Performed By: #### L 500.4050, L500.4100, L100.0500, L501.9520 #### [facility] [address] [place], [address] L509.7001on 04-23-2025 Procalcitonin 0.14 ng/mL High <=0.10 [facility] Comment on above: Result Comment: [...] #### L 500.4050, L500.4100, L100.0500, L501.9520 #### [facility] [address] [place], [address] MCV (mean corpuscular volume ) determinationOrdered By: Cele Morgan on 04-23-2025 MCV (RBC) [Entitic vol] 98.8 fL 81-99 [facility] Magnesiumon 04-23-2025 Magnesium [Mass/Vol] 1.8 mg/dL Normal 1.5-2.2 [facility] Comment on above: Order Comment: Comme nts: May add to ED labsComments: may add to ED labs Performed By: #### L 500.4050, L500.4100, L100.0500, L501.9520 #### [facility] [address] [place], [address] Magnesium measurement (mass/ volume)Ordered By: Virginia Henriquez on 04-23-2025 Magnesium (Unsp spec) [Mass/Vol] 1.8 mg/dL 1.5-2.2 [facility] Mean corpuscular hemoglobin (MCH) determinationOrdered By: Cele Morgan on 04-23-2025 MCH (RBC) [Entitic mass] 31.2 pg 27.0-32.0 [facility] Mean corpuscular hemoglobin concentration (MCHC) determinationOrdered By: Cele Morgan on 04-23-2025 MCHC (RBC) [Mass/Vol] 31.6 g/dL Low 32-36 [facility] Mean platelet volume determi nationOrdered By: Cele Morgan on 04-23-2025 Platelet mean volume (Bld) [Entitic vol] 10.4 fL 6.2-12.0 [facility] Microscopic analysis of urin e for red blood cells (RBC)Ordered By: Cele Morgan on 04-23-2025 Microscopic analysis of urine for red blood cells (RBC) 0 SEEN /hpf 0-5 [facility] Monocyte percentageOrdered B y: Cele Morgan on 04-23-2025 Monocytes/100 WBC (Bld) 6.6 % 0-10 [facility] Mucus LM Ql (Urine sed)Order ed By: Cele Morgan on 04-23-2025 Mucus Ql (Urine sed) 2+ /hpf [facility] Neutrophil percentageOrdered By: Cele Morgan on 04-23-2025 Neutrophils/100 WBC (Bld) 83.8 % High 47-70 [facility] Nitrite Test strip Ql (U)Ord ered By: Cele Morgan on 04-23-2025 Nitrite Ql (U) Negative Negative [facility] Nucleated red blood cell per centageOrdered By: Cele Morgan on 04-23-2025 Nucleated RBC/100 WBC (Bld) [Ratio] 0 % 0-5 [facility] Phosphoruson 04-23-2025 Phosphate [Mass/Vol] 3.6 mg/dL Normal 2.7-4.5 [facility] Comment on above: Order Comment: Comme nts: May add to ED labsComments: may add to ED labs Performed By: #### L 500.4050, L500.4100, L100.0500, L501.9520 #### [facility] [address] [place], [address] Platelet countOrdered By: Celine Morgan on 04-23-2025 Platelets (Bld) [#/Vol] 285 10*3/uL 150-450 [facility] Potassium measurement (mass/ volume)Ordered By: Cele Morgan on 04-23-2025 Potassium (Unsp spec) [Mass/Vol] 3.9 mmol/L 3.3-5.1 [facility] Procalcitonin [Mass/volume] in Serum or Plasma by ImmunoassayOrdered By: Virginia Henriquez on 04-23-2025 Procalcitonin IA [Mass/Vol] 0.14 ng/mL High <0.11 [facility] Comment on above: Interpretation:<0.10 -0.25 [...] Protein Ql (U) 30 mg/dl High Negative [facility] RBC Auto (Bld) [#/Vol]Ordere d By: Cele Morgan on 04-23-2025 RBC (Bld) [#/Vol] 4.07 10*6/uL Low 4.2-5.4 [facility] Serum creatinine measurement (mass/volume)Ordered By: Cele Morgan on 04-23-2025 Creatinine [Mass/Vol] 0.65 mg/dL Low 0.70-1.20 [facility] Serum glucose measurement (m ass/volume)Ordered By: Cele Morgan on 04-23-2025 Glucose [Mass/Vol] 110 mg/dL High 70-99 [facility] Serum or plasma calcium tad urement (mass/volume)Ordered By: Cele Morgan on 04-23-2025 Calcium [Mass/Vol] 9.6 mg/dL 7.6-11.0 [facility] Serum or plasma urea nitroge n measurement (mass/volume)Ordered By: Cele Morgan on 04-23-2025 Urea nitrogen [Mass/Vol] 14 mg/dL 4-19 [facility] Sodium levelOrdered By: Len Morgan on 04-23-2025 Sodium [Moles/Vol] 145 mmol/L 133-145 [facility] Squamous epithelial cells de tection in urine sediment by light microscopyOrdered By: Cele Morgan on 04-23-2025 Epithelial cells.squamous LM Ql (Urine sed) 5-10 SEEN /hpf 5-10 [facility] Troponin T.cardiac [Mass/vol ume] in Serum or Plasma by High sensitivity methodOrdered By: Virginia Henriquez on 04-23-2025 Troponin T.cardiac High sensitivity method [Mass/Vol] < 6 ng/L <14 [facility] Troponin T.cardiac [Mass/vol ume] in Serum or Plasma by High sensitivity methodOrdered By: Cele Morgan on 04-23-2025 Troponin T.cardiac High sensitivity method [Mass/Vol] < 6 ng/L <14 [facility] Troponin T.cardiac High sensitivity method [Mass/Vol] < 6 ng/L <14 [facility] Urinalysis, Completeon 04-23 BACTERIA 2+ /hpf Normal None Seen [facility] Comment on above: Order Comment: COLLE CTOR TO SPECIFY Performed By: #### L 500.4050, L500.4100, L100.0500, L501.9520 #### [facility] [address] [place], [place], [id number] [phone] EPI,SQUAMOUS 5-10 SEEN Normal 5-10 [facility] Comment on above: Order Comment: BENITO CTOR TO SPECIFY Performed By: #### L 500.4050, L500.4100, L100.0500, L501.9520 #### [facility] [address] [place], [address] Mucus Ql (Urine sed) 2+ /hpf Normal [facility] Comment on above: Order Comment: BENITO CTOR TO SPECIFY Performed By: #### L 500.4050, L500.4100, L100.0500, L501.9520 #### [facility] [address] [place], [address] WBC 10-25 SEEN Normal 0-5 [facility] Comment on above: Order Comment: BENITO CTOR TO SPECIFY Performed By: #### L 500.4050, L500.4100, L100.0500, L501.9520 #### [facility] [address] [place], [address] RBC 0 SEEN Normal 0-5 [facility] Comment on above: Order Comment: BENITO CTOR TO SPECIFY Performed By: #### L 500.4050, L500.4100, L100.0500, L501.9520 #### [facility] [address] [place], [address] Urine clarityOrdered By: Humza Morgan on 04-23-2025 Clarity (U) Clear Clear [facility] Urine color determinationOrd ered By: Cele Morgan on 04-23-2025 Color (U) Yellow Yellow [facility] Urine glucose detectionOrder ed By: Cele Morgan on 04-23-2025 Glucose Ql (U) Normal mg/dl Normal [facility] Urine leukocyte esterase det ection by dipstickOrdered By: Cele Morgan on 04-23-2025 Leukocyte esterase Test strip Ql (U) 25 /ul High Negative [facility] Urine pHOrdered By: Glenna Morgan on 04-23-2025 pH (U) 6.0 [pH] 5.0 - 8.0 [facility] Urine sediment bacteria coun t by microscopy (number/high power field)Ordered By: Cele Morgan on 04-23-2025 Bacteria LM.HPF (Urine sed) [#/Area] 2 /[HPF] None Seen [facility] Urine specific gravity measu rementOrdered By: Celecamron Morgan on 04-23-2025 Specific gravity (U) [Rel density] 1.015 1.002-1.03 0 [facility] Urine urobilinogen measureme ntOrdered By: Cele Morgan on 04-23-2025 Urobilinogen Ql (U) 1 mg/dl High Normal [facility] White blood cell (WBC) count Ordered By: Cele Morgan on 04-23-2025 WBC (Bld) [#/Vol] 9.0 10*3/uL 4.4-11.0 [facility] White blood cell countOrdere d By: Cele Morgan on 04-23-2025 White blood cell count 10-25 SEEN /hpf 0-5 [facility] Bacteria Ur Culton Bacteria identified [...] llection technique or straight catheterization for???urine???collection. Normal [facility] Comment on above: Performed By: #### 6 30-4 ####[facility] [id number] [address] [facility] CNOVon 04-20-2025 CNOV Office Visit (UCWSTR ) RAJENDRA LUCERO ([id number]) 1955 F Date Time Provider Department 04/20/25 9:45 AM DAMON EUGENE [facility] During your visit today, we recorded the following information about you: Temperature Pulse Respiration Blood pressure 98.4 degrees 94/minute 18/minute 132/80 Weight 117 kg Damon Eugene APRN.[facility] 04/20/2025 10:23 AM Signed [facility] Subjective Rajendra Lucero is a 69 year old female. [...] week for further evaluation. and Recording using [employer] software for draft documentation of the visit was discussed with the patient/authorized telesales representative; all questions welcomed and answered. Patient/authorized telesales representative agreed to proceed MDM Procedures Milena Chang LPN 04/20/2025 11:12 AM Signed Addended by: MILENA CHANG on: 04/20/2025 11:12 AM Modules accepted: [...] 10 capsuleRfl: 0 UA DIP, URINE (POC) [2270181] Order #: [id number]. #:[id number] nystatin (MYCOSTATIN) creamApply to affected area two times a day for 14 days.Disp: 30 gRfl: 0 BACTERIAL CULTURE, URINE [SQURCUL] Order #: [id number]. #:[id number] Prescriptions as of 04/20/2025 - nitrofurantoin monohydrate [...] as ne (more content not included)... Normal [facility] UA DIP, URINE (POC)on 2024 BILIRUBIN UA (POCT) Small Abnormal Negative [facility] CLARITY UA (POCT) Turbid [facility] COLOR UA (POCT) Dark yellow [facility] GLUCOSE UA (POCT) Negative Negative mg/dL [facility] Hemoglobin Ql (U) Moderate Abnormal Negative [facility] Interpretation and review of laboratory results Abnormal [facility] KETONE UA (POCT) Trace Negative mg/dL [facility] LEUKOCYTES UA (POCT) Negative Negative [facility] NITRITE UA (POCT) Negative Negative [facility] PH UA (POCT) 6 4.5 - 8.[address] [facility] Protein Ql (U) 30 mg/dL Abnormal Negative [facility] SPECIFIC GRAVITY UA (POCT) 1.015 1.005 - 1.[address] [facility] UROBILINOGEN UA (POCT) 2 Abnormal Normal E.U./dL [facility] Location:[address], [place], [place], [id number] [place] [address] POINT OF CARE [facility] CNOVon 03-31-2025 CNOV Office Visit (FAMPWS ) MICHELLERAJENDRA ([id number]) 1955 F Date Time Provider Department 03/31/25 1:00 PM JANETTE DAMON During your visit today, we recorded the following information about you: Pulse Respiration Blood pressure Weight 91/minute 18/minute 124/82 119.1 kg Janette Damon APRN.[employer] 03/31/2025 1:06 PM Signed 03/31/2025 Patient presents with: BP Check: Had appointment with cardiology yesterday; MANI Elena Recording using ambient [employer] software for draft documentation of the visit was discussed with the patient/authorized telesales representative; all questions welcomed and answered. Patient/authorized telesales representative agreed to proceed SUBJECTIVE: This is a 69 year old that is here today for Above Complaints.. Atrial Flutter: - Recent consultation with Dr. Elena, who referred her to Dr. Marcos Santos, an information coordinator, for potential ablation. - Dr. Elena indicated [...] disease) (HCC) 02/03/2010 Coronary artery disease No CA, CHF. No heart cath. Diverticulosis of colon [...] hours as needed for wheezing/shortness of breath. jjjcycnpfxa-uhpfxyrba-xwsmasd r (TRELEGY ELLIPTA) 200-62.5-25 mcg inhalation powder [...] Vaccine() due on 06/28/2024 Advance Directive Discussion Nev (more content not included)... Normal [facility] Cardiology Visit Reporton Cardiology Visit Report [facility] [address] [place], [place] [address] OFFICE VISIT Date of Service: 03/30/25 MR#: [id number] Acct: [id number] Name: RAJENDRA LUCERO Rep #: [id number] : 1955 Provider: Dr. Bryan osei MD Age/Sex: 69/F Location: [facility] Status: Signed HPI HPI History of Present Illness Details: Patient comes today as a new patient visit. She is a pleasant 69-year-old white female who here for new onset atrial flutter. Patient was evaluated emergency department at [facility] February 19, 2025. She had been noticing [...] to 50%. 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 Normal [facility] CNOVon 03-10-2025 CNOV Office Visit (PULMWS ) MICHELLERAJENDRA ([id number]) 1955 F Date Time Provider Department 03/10/25 1:00 PM RAJENDRA GOODMAN PULMWS During your visit today, we recorded the following information about you: Rajendra Goodman APRN.[employer] 03/10/2025 1:47 PM Signed Pulmonary Medicine Patients name: Rajendra Palumbo PCP: Phuc Martines DO CC: concern for ROXY HPI: Rajendra Lucero is a 69 year old female former 76-okxq-kaup smoker, quitting in 2008 with PMH significant [...] that time. She was just hospitalized at [facility] 02/19 - 02/23 for SOB/leg [...] failure (HCC) COPD (chronic obstructive pulmonary disease) ([facility]) 02/03/2010 Coronary artery disease No CA, CHF. No heart cath. Diverticulosis of colon [...] ELLIPTA 200-62.5-25 mcg inhalation powder Generic drug: ntennwusmuq-hsugccbac-spivdmz r Inhale 1 Puff as instructed once [...] 3 LungR (more content not included)... Normal [facility] Basic Metabolic Profile (BMP )on 03-02-2025 BUN Normal 4-19 [facility] Comment on above: Result Comment: Canc elled via OM: Order cancelled - Patient discharged Performed By: #### L 500.2500, L100.0100 ####[facility] [address] [place], [address] BUN/CRE Normal 10-20 [facility] Comment on above: Result Comment: Canc elled via OM: Order cancelled - Patient discharged Performed By: #### L 500.2500, L100.0100 ####[facility] [address] [place], [address] Calcium Normal 7.6-11.0 [facility] Comment on above: Result Comment: Canc elled via OM: Order cancelled - Patient discharged Performed By: #### L 500.2500, L100.0100 ####[facility] [address] [place], [address] CL Normal 98-108 [facility] Comment on above: Result Comment: Canc elled via OM: Order cancelled - Patient discharged Performed By: #### L 500.2500, L100.0100 ####[facility] [address] [place], [address] CO2 Normal 21.0-32.0 [facility] Comment on above: Result Comment: Canc elled via OM: Order cancelled - Patient discharged Performed By: #### L 500.2500, L100.0100 ####[facility] [address] [place], [address] CREAT,SERUM Normal 0.70-1.20 [facility] Comment on above: Result Comment: Canc elled via OM: Order cancelled - Patient discharged Performed By: #### L 500.2500, L100.0100 ####[facility] [address] [place], [address] eGFR Normal >60 [facility] Comment on above: Result Comment: Canc elled via OM: Order cancelled - Patient discharged Performed By: #### L 500.2500, L100.0100 ####[facility] [address] [place], [address] GAP Normal 5-15 [facility] Comment on above: Result Comment: Canc elled via OM: Order cancelled - Patient discharged Performed By: #### L 500.2500, L100.0100 ####[facility] [address] [place], [address] GLU Normal 70-99 [facility] Comment on above: Result Comment: Canc elled via OM: Order cancelled - Patient discharged Performed By: #### L 500.2500, L100.0100 ####[facility] [address] [place], [address] Potassium Normal 3.3-5.1 [facility] Comment on above: Result Comment: Canc elled via OM: Order cancelled - Patient discharged Performed By: #### L 500.2500, L100.0100 ####[facility] [address] [place], [address] Basic Metabolic Profile (BMP) Normal 133-145 [facility] Comment on above: Result Comment: Canc elled via OM: Order cancelled - Patient discharged Performed By: #### L 500.2500, L100.0100 ####[facility] [address] [place], [address] CBC W/Diff, Automatedon 05-0 -2024 Absolute Neut Normal 2.0-7.7 [facility] Comment on above: Result Comment: Canc elled via OM: Order cancelled - Patient discharged Performed By: #### L 500.2500, L100.0100 ####[facility] [address] [place], [address] HCT Normal 37-47 [facility] Comment on above: Result Comment: Canc elled via OM: Order cancelled - Patient discharged Performed By: #### L 500.2500, L100.0100 ####[facility] [address] [place], [address] HGB Normal 12.0-15.0 [facility] Comment on above: Result Comment: Canc elled via OM: Order cancelled - Patient discharged Performed By: #### L 500.2500, L100.0100 ####[facility] [address] [place], [address] MCH Normal 27.0-32.0 [facility] Comment on above: Result Comment: Canc elled via OM: Order cancelled - Patient discharged Performed By: #### L 500.2500, L100.0100 ####[facility] [address] [place], [address] MCHC Normal 32-36 [facility] Comment on above: Result Comment: Canc elled via OM: Order cancelled - Patient discharged Performed By: #### L 500.2500, L100.0100 ####[facility] [address] [place], [address] MCV Normal 81-99 [facility] Comment on above: Result Comment: Canc elled via OM: Order cancelled - Patient discharged Performed By: #### L 500.2500, L100.0100 ####[facility] [address] [place], [address] NEUT% Normal 47-70 [facility] Comment on above: Result Comment: Canc elled via OM: Order cancelled - Patient discharged Performed By: #### L 500.2500, L100.0100 ####[facility] [address] [place], [address] PLT Normal 150-450 [facility] Comment on above: Result Comment: Canc elled via OM: Order cancelled - Patient discharged Performed By: #### L 500.2500, L100.0100 ####[facility] [address] [place], [address] RBC Normal 4.2-5.4 [facility] Comment on above: Result Comment: Canc elled via OM: Order cancelled - Patient discharged Performed By: #### L 500.2500, L100.0100 ####[facility] [address] [place], [address] RDW CV Normal 11.6-14.6 [facility] Comment on above: Result Comment: Canc elled via OM: Order cancelled - Patient discharged Performed By: #### L 500.2500, L100.0100 ####[facility] [address] [place], [address] RDW SD Normal 35.1-43.9 [facility] Comment on above: Result Comment: Canc elled via OM: Order cancelled - Patient discharged Performed By: #### L 500.2500, L100.0100 ####[facility] [address] [place], [address] WBC Normal 4.4-11.0 [facility] Comment on above: Result Comment: Canc elled via OM: Order cancelled - Patient discharged Performed By: #### L 500.2500, L100.0100 ####[facility] [address] [place], [address] Basic Metabolic Profile (BMP )on 03-01-2025 BUN Normal 4-19 [facility] Comment on above: Result Comment: Canc elled via OM: Order cancelled - Patient discharged Performed By: #### L 100.0100, L500.2500 ####[facility] [address] [place], [address] BUN/CRE Normal 10-20 [facility] Comment on above: Result Comment: Canc elled via OM: Order cancelled - Patient discharged Performed By: #### L 100.0100, L500.2500 ####[facility] [address] [place], [address] Calcium Normal 7.6-11.0 [facility] Comment on above: Result Comment: Canc elled via OM: Order cancelled - Patient discharged Performed By: #### L 100.0100, L500.2500 ####[facility] [address] [place], [address] CL Normal 98-108 [facility] Comment on above: Result Comment: Canc elled via OM: Order cancelled - Patient discharged Performed By: #### L 100.0100, L500.2500 ####[facility] [address] [place], [address] CO2 Normal 21.0-32.0 [facility] Comment on above: Result Comment: Canc elled via OM: Order cancelled - Patient discharged Performed By: #### L 100.0100, L500.2500 ####[facility] [address] [place], [address] CREAT,SERUM Normal 0.70-1.20 [facility] Comment on above: Result Comment: Canc elled via OM: Order cancelled - Patient discharged Performed By: #### L 100.0100, L500.2500 ####[facility] [address] [place], [address] eGFR Normal >60 [facility] Comment on above: Result Comment: Canc elled via OM: Order cancelled - Patient discharged Performed By: #### L 100.0100, L500.2500 ####[facility] [address] [place], [address] GAP Normal 5-15 [facility] Comment on above: Result Comment: Canc elled via OM: Order cancelled - Patient discharged Performed By: #### L 100.0100, L500.2500 ####[facility] [address] [place], [address] GLU Normal 70-99 [facility] Comment on above: Result Comment: Canc elled via OM: Order cancelled - Patient discharged Performed By: #### L 100.0100, L500.2500 ####[facility] [address] [place], [address] Potassium Normal 3.3-5.1 [facility] Comment on above: Result Comment: Canc elled via OM: Order cancelled - Patient discharged Performed By: #### L 100.0100, L500.2500 ####[facility] [address] [place], [address] Basic Metabolic Profile (BMP) Normal 133-145 [facility] Comment on above: Result Comment: Canc elled via OM: Order cancelled - Patient discharged Performed By: #### L 100.0100, L500.2500 ####[facility] [address] [place], [address] CBC W/Diff, Automatedon 05-0 -2024 Absolute Neut Normal 2.0-7.7 [facility] Comment on above: Result Comment: Canc elled via OM: Order cancelled - Patient discharged Performed By: #### L 100.0100, L500.2500 ####[facility] [address] [place], [address] HCT Normal 37-47 [facility] Comment on above: Result Comment: Canc elled via OM: Order cancelled - Patient discharged Performed By: #### L 100.0100, L500.2500 ####[facility] [address] [place], [address] HGB Normal 12.0-15.0 [facility] Comment on above: Result Comment: Canc elled via OM: Order cancelled - Patient discharged Performed By: #### L 100.0100, L500.2500 ####[facility] [address] [place], [address] MCH Normal 27.0-32.0 [facility] Comment on above: Result Comment: Canc elled via OM: Order cancelled - Patient discharged Performed By: #### L 100.0100, L500.2500 ####[facility] [address] [place], [address] MCHC Normal 32-36 [facility] Comment on above: Result Comment: Canc elled via OM: Order cancelled - Patient discharged Performed By: #### L 100.0100, L500.2500 ####[facility] [address] [place], [address] MCV Normal 81-99 [facility] Comment on above: Result Comment: Canc elled via OM: Order cancelled - Patient discharged Performed By: #### L 100.0100, L500.2500 ####[facility] [address] [place], [address] NEUT% Normal 47-70 [facility] Comment on above: Result Comment: Canc elled via OM: Order cancelled - Patient discharged Performed By: #### L 100.0100, L500.2500 ####[facility] [address] [place], [address] PLT Normal 150-450 [facility] Comment on above: Result Comment: Canc elled via OM: Order cancelled - Patient discharged Performed By: #### L 100.0100, L500.2500 ####[facility] [address] [place], [address] RBC Normal 4.2-5.4 [facility] Comment on above: Result Comment: Canc elled via OM: Order cancelled - Patient discharged Performed By: #### L 100.0100, L500.2500 ####[facility] [address] [place], [address] RDW CV Normal 11.6-14.6 [facility] Comment on above: Result Comment: Canc elled via OM: Order cancelled - Patient discharged Performed By: #### L 100.0100, L500.2500 ####[facility] [address] [place], [address] RDW SD Normal 35.1-43.9 [facility] Comment on above: Result Comment: Canc elled via OM: Order cancelled - Patient discharged Performed By: #### L 100.0100, L500.2500 ####[facility] [address] [place], [address] WBC Normal 4.4-11.0 [facility] Comment on above: Result Comment: Canc elled via OM: Order cancelled - Patient discharged Performed By: #### L 100.0100, L500.2500 ####[facility] [address] [place], [address] CNOVon 03-01-2025 CNOV Office Visit (FAMPWS ) RAJENDRA LUCERO Bora ([id number]) 1955 F Date Time Provider Department 03/01/25 12:20 PM JANETTE DAMON During your visit today, we recorded the following information about you: Pulse Respiration Blood pressure Weight 76/minute 18/minute 116/70 118.9 kg Janette Damon APRN.[employer] 03/01/2025 2:15 PM Signed 02/26/2025 Patient presents with: Hospital F/U: [facility] COPD SUBJECTIVE: This is a 69 year old that is here today for Above Complaints. HOSPITAL/ER FOLLOW UP: Reason for visit: SOB, and leg swelling Which facility: [facility] Date of visit: 02/19/2025-02/23/2025 Diagnosis: [...] as yet. Was wanting to stay within [facility] system. Denies dyspnea, orthopnea wheezing, chest pain, palpitations or leg swelling. 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 Last appointment on 12/25/2024. Uses 3/4L/NC at rest and 6 L/NC with exertion. She feels her breathing as at her baseline. ER records reviewed PAST MEDICAL HISTORY Diagnosis Date Chronic hypoxemic respiratory failure (HCC) COPD (chronic obstructive pulmonary disease) (HCC) 02/03/2010 Coronary artery disease No CA, CHF. No heart cath. Diverticulosis of colon [...] hours as needed for wheezing/shortness of breath. sdisfqlroex-zkdnyvpsp-wdqjudh r (TRELEGY ELLIPTA) 200-62.5-25 mcg inhalation powder [...] 11/09/2025 M (more content not included)... Normal [facility] Basic Metabolic Profile (BMP )on 02-28-2025 BUN Normal 02-13 [facility] Comment on above: Result Comment: Canc elled via OM: Order cancelled - Patient discharged Performed By: #### L 500.4050, L500.4100, L100.0500, L501.9520 #### [facility] [address] [place], [address] BUN/CRE Normal - [facility] Comment on above: Result Comment: Canc elled via OM: Order cancelled - Patient discharged Performed By: #### L 500.4050, L500.4100, L100.0500, L501.9520 #### [facility] [address] [place], [address] Calcium Normal 7.6-11.0 [facility] Comment on above: Result Comment: Canc elled via OM: Order cancelled - Patient discharged Performed By: #### L 500.4050, L500.4100, L100.0500, L501.9520 #### [facility] [address] [place], [address] CL Normal 98-108 [facility] Comment on above: Result Comment: Canc elled via OM: Order cancelled - Patient discharged Performed By: #### L 500.4050, L500.4100, L100.0500, L501.9520 #### [facility] [address] [place], [address] CO2 Normal 21.0-32.0 [facility] Comment on above: Result Comment: Canc elled via OM: Order cancelled - Patient discharged Performed By: #### L 500.4050, L500.4100, L100.0500, L501.9520 #### [facility] [address] [place], [address] CREAT,SERUM Normal 0.70-1.20 [facility] Comment on above: Result Comment: Canc elled via OM: Order cancelled - Patient discharged Performed By: #### L 500.4050, L500.4100, L100.0500, [id number] #### [facility] [address] [place], [address] eGFR Normal >60 [facility] Comment on above: Result Comment: Canc elled via OM: Order cancelled - Patient discharged Performed By: #### L 500.4050, L500.4100, L100.0500, [id number] #### [facility] [address] [place], [address] GAP Normal 5-15 [facility] Comment on above: Result Comment: Canc elled via OM: Order cancelled - Patient discharged Performed By: #### L 500.4050, L500.4100, L100.0500, [id number] #### [facility] [address] [place], [address] GLU Normal 70-99 [facility] Comment on above: Result Comment: Canc elled via OM: Order cancelled - Patient discharged Performed By: #### L 500.4050, L500.4100, L100.0500, [id number] #### [facility] [address] [place], [address] Potassium Normal 3.3-5.1 [facility] Comment on above: Result Comment: Canc elled via OM: Order cancelled - Patient discharged Performed By: #### L 500.4050, L500.4100, L100.0500, [id number] #### [facility] [address] [place], [address] Basic Metabolic Profile (BMP) Normal 133-145 [facility] Comment on above: Result Comment: Canc elled via OM: Order cancelled - Patient discharged Performed By: #### L 500.4050, L500.4100, L100.0500, [id number] #### [facility] [address] [place], [address] CBC W/Diff, Automatedon 05-0 Absolute Neut Normal 2.0-7.7 [facility] Comment on above: Result Comment: Canc elled via OM: Order cancelled - Patient discharged Performed By: #### L 500.4050, L500.4100, L100.0500, [id number] #### [facility] [address] [place], [address] HCT Normal 37-47 [facility] Comment on above: Result Comment: Canc elled via OM: Order cancelled - Patient discharged Performed By: #### L 500.4050, L500.4100, L100.0500, [id number] #### [facility] [address] [place], [address] HGB Normal 12.0-15.0 [facility] Comment on above: Result Comment: Canc elled via OM: Order cancelled - Patient discharged Performed By: #### L 500.4050, L500.4100, L100.0500, [id number] #### [facility] [address] [place], [address] MCH Normal 27.0-32.0 [facility] Comment on above: Result Comment: Canc elled via OM: Order cancelled - Patient discharged Performed By: #### L 500.4050, L500.4100, L100.0500, [id number] #### [facility] [address] [place], [address] MCHC Normal 32-36 [facility] Comment on above: Result Comment: Canc elled via OM: Order cancelled - Patient discharged Performed By: #### L 500.4050, L500.4100, L100.0500, [id number] #### [facility] [address] [place], [address] MCV Normal 81-99 [facility] Comment on above: Result Comment: Canc elled via OM: Order cancelled - Patient discharged Performed By: #### L 500.4050, L500.4100, L100.0500, [id number] #### [facility] [address] [place], [address] NEUT% Normal 47-70 [facility] Comment on above: Result Comment: Canc elled via OM: Order cancelled - Patient discharged Performed By: #### L 500.4050, L500.4100, L100.0500, [id number] #### [facility] [address] [place], [address] PLT Normal 150-450 [facility] Comment on above: Result Comment: Canc elled via OM: Order cancelled - Patient discharged Performed By: #### L 500.4050, L500.4100, L100.0500, [id number] #### [facility] [address] [place], [address] RBC Normal 4.2-5.4 [facility] Comment on above: Result Comment: Canc elled via OM: Order cancelled - Patient discharged Performed By: #### L 500.4050, L500.4100, L100.0500, [id number] #### [facility] [address] [place], [address] RDW CV Normal 11.6-14.6 [facility] Comment on above: Result Comment: Canc elled via OM: Order cancelled - Patient discharged Performed By: #### L 500.4050, L500.4100, L100.0500, [id number] #### [facility] [address] [place], [address] RDW SD Normal 35.1-43.9 [facility] Comment on above: Result Comment: Canc elled via OM: Order cancelled - Patient discharged Performed By: #### L 500.4050, L500.4100, L100.0500, [id number] #### [facility] [address] [place], [address] WBC Normal 4.4-11.0 [facility] Comment on above: Result Comment: Canc elled via OM: Order cancelled - Patient discharged Performed By: #### L 500.4050, L500.4100, L100.0500, [id number] #### [facility] [address] [place], [address] Basic Metabolic Profile (BMP )on 02-27-2025 BUN Normal 4-19 [facility] Comment on above: Result Comment: Canc elled via OM: Order cancelled - Patient discharged Performed By: #### L 500.4050, L500.4100, L100.0500, [id number] #### [facility] [address] [place], [address] BUN/CRE Normal 10-20 [facility] Comment on above: Result Comment: Canc elled via OM: Order cancelled - Patient discharged Performed By: #### L 500.4050, L500.4100, L100.0500, [id number] #### [facility] [address] [place], [address] Calcium Normal 7.6-11.0 [facility] Comment on above: Result Comment: Canc elled via OM: Order cancelled - Patient discharged Performed By: #### L 500.4050, L500.4100, L100.0500, [id number] #### [facility] [address] [place], [address] CL Normal 98-108 [facility] Comment on above: Result Comment: Canc elled via OM: Order cancelled - Patient discharged Performed By: #### L 500.4050, L500.4100, L100.0500, [id number] #### [facility] [address] [place], [address] CO2 Normal 21.0-32.0 [facility] Comment on above: Result Comment: Canc elled via OM: Order cancelled - Patient discharged Performed By: #### L 500.4050, L500.4100, L100.0500, L501.9520 #### [facility] [address] [place], [address] CREAT,SERUM Normal 0.70-1.20 [facility] Comment on above: Result Comment: Canc elled via OM: Order cancelled - Patient discharged Performed By: #### L 500.4050, L500.4100, L100.0500, [id number] #### [facility] [address] [place], [address] eGFR Normal >60 [facility] Comment on above: Result Comment: Canc elled via OM: Order cancelled - Patient discharged Performed By: #### L 500.4050, L500.4100, L100.0500, [id number] #### [facility] [address] [place], [address] GAP Normal 5-15 [facility] Comment on above: Result Comment: Canc elled via OM: Order cancelled - Patient discharged Performed By: #### L 500.4050, L500.4100, L100.0500, [id number] #### [facility] [address] [place], [address] GLU Normal 70-99 [facility] Comment on above: Result Comment: Canc elled via OM: Order cancelled - Patient discharged Performed By: #### L 500.4050, L500.4100, L100.0500, [id number] #### [facility] [address] [place], [address] Potassium Normal 3.3-5.1 [facility] Comment on above: Result Comment: Canc elled via OM: Order cancelled - Patient discharged Performed By: #### L 500.4050, L500.4100, L100.0500, [id number] #### [facility] [address] [place], [address] Basic Metabolic Profile (BMP) Normal 133-145 [facility] Comment on above: Result Comment: Canc elled via OM: Order cancelled - Patient discharged Performed By: #### L 500.4050, L500.4100, L100.0500, L501.9520 #### [facility] [address] [place], [address] CBC W/Diff, Automatedon 05-0 -2024 Absolute Neut Normal 2.0-7.7 [facility] Comment on above: Result Comment: Canc elled via OM: Order cancelled - Patient discharged Performed By: #### L 500.4050, L500.4100, L100.0500, [id number] #### [facility] [address] [place], [address] HCT Normal 37-47 [facility] Comment on above: Result Comment: Canc elled via OM: Order cancelled - Patient discharged Performed By: #### L 500.4050, L500.4100, L100.0500, [id number] #### [facility] [address] [place], [address] HGB Normal 12.0-15.0 [facility] Comment on above: Result Comment: Canc elled via OM: Order cancelled - Patient discharged Performed By: #### L 500.4050, L500.4100, L100.0500, [id number] #### [facility] [address] [place], [address] MCH Normal 27.0-32.0 [facility] Comment on above: Result Comment: Canc elled via OM: Order cancelled - Patient discharged Performed By: #### L 500.4050, L500.4100, L100.0500, [id number] #### [facility] [address] [place], [address] MCHC Normal 32-36 [facility] Comment on above: Result Comment: Canc elled via OM: Order cancelled - Patient discharged Performed By: #### L 500.4050, L500.4100, L100.0500, [id number] #### [facility] [address] [place], [address] MCV Normal 81-99 [facility] Comment on above: Result Comment: Canc elled via OM: Order cancelled - Patient discharged Performed By: #### L 500.4050, L500.4100, L100.0500, [id number] #### [facility] [address] [place], [address] NEUT% Normal 47-70 [facility] Comment on above: Result Comment: Canc elled via OM: Order cancelled - Patient discharged Performed By: #### L 500.4050, L500.4100, L100.0500, [id number] #### [facility] [address] [place], [address] PLT Normal 150-450 [facility] Comment on above: Result Comment: Canc elled via OM: Order cancelled - Patient discharged Performed By: #### L 500.4050, L500.4100, L100.0500, [id number] #### [facility] [address] [place], [address] RBC Normal 4.2-5.4 [facility] Comment on above: Result Comment: Canc elled via OM: Order cancelled - Patient discharged Performed By: #### L 500.4050, L500.4100, L100.0500, [id number] #### [facility] [address] [place], [address] RDW CV Normal 11.6-14.6 [facility] Comment on above: Result Comment: Canc elled via OM: Order cancelled - Patient discharged Performed By: #### L 500.4050, L500.4100, L100.0500, [id number] #### [facility] [address] [place], [address] RDW SD Normal 35.1-43.9 [facility] Comment on above: Result Comment: Canc elled via OM: Order cancelled - Patient discharged Performed By: #### L 500.4050, L500.4100, L100.0500, [id number] #### [facility] [address] [place], [address] WBC Normal 4.4-11.0 [facility] Comment on above: Result Comment: Canc elled via OM: Order cancelled - Patient discharged Performed By: #### L 500.4050, L500.4100, L100.0500, [id number] #### [facility] [address] [place], [address] Basic Metabolic Profile (BMP )on 02-26-2025 BUN Normal 4-19 [facility] Comment on above: Result Comment: Canc elled via OM: Order cancelled - Patient discharged Performed By: #### L 500.4050, L500.4100, L100.0500, [id number] #### [facility] [address] [place], [address] BUN/CRE Normal 10-20 [facility] Comment on above: Result Comment: Canc elled via OM: Order cancelled - Patient discharged Performed By: #### L 500.4050, L500.4100, L100.0500, [id number] #### [facility] [address] [place], [address] Calcium Normal 7.6-11.0 [facility] Comment on above: Result Comment: Canc elled via OM: Order cancelled - Patient discharged Performed By: #### L 500.4050, L500.4100, L100.0500, [id number] #### [facility] [address] [place], [address] CL Normal 98-108 [facility] Comment on above: Result Comment: Canc elled via OM: Order cancelled - Patient discharged Performed By: #### L 500.4050, L500.4100, L100.0500, [id number] #### [facility] [address] [place], [address] CO2 Normal 21.0-32.0 [facility] Comment on above: Result Comment: Canc elled via OM: Order cancelled - Patient discharged Performed By: #### L 500.4050, L500.4100, L100.0500, [id number] #### [facility] [address] [place], [address] CREAT,SERUM Normal 0.70-1.20 [facility] Comment on above: Result Comment: Canc elled via OM: Order cancelled - Patient discharged Performed By: #### L 500.4050, L500.4100, L100.0500, [id number] #### [facility] [address] [place], [address] eGFR Normal >60 [facility] Comment on above: Result Comment: Canc elled via OM: Order cancelled - Patient discharged Performed By: #### L 500.4050, L500.4100, L100.0500, [id number] #### [facility] [address] [place], [address] GAP Normal 5-15 [facility] Comment on above: Result Comment: Canc elled via OM: Order cancelled - Patient discharged Performed By: #### L 500.4050, L500.4100, L100.0500, [id number] #### [facility] [address] [place], [address] GLU Normal 70-99 [facility] Comment on above: Result Comment: Canc elled via OM: Order cancelled - Patient discharged Performed By: #### L 500.4050, L500.4100, L100.0500, [id number] #### [facility] [address] [place], [address] Potassium Normal 3.3-5.1 [facility] Comment on above: Result Comment: Canc elled via OM: Order cancelled - Patient discharged Performed By: #### L 500.4050, L500.4100, L100.0500, [id number] #### [facility] [address] [place], [address] Basic Metabolic Profile (BMP) Normal 133-145 [facility] Comment on above: Result Comment: Canc elled via OM: Order cancelled - Patient discharged Performed By: #### L 500.4050, L500.4100, L100.0500, [id number] #### [facility] [address] [place], [address] CBC W/Diff, Automatedon 05-0 -2024 Absolute Neut Normal 2.0-7.7 [facility] Comment on above: Result Comment: Canc elled via OM: Order cancelled - Patient discharged Performed By: #### L 500.4050, L500.4100, L100.0500, [id number] #### [facility] [address] [place], [address] HCT Normal 37-47 [facility] Comment on above: Result Comment: Canc elled via OM: Order cancelled - Patient discharged Performed By: #### L 500.4050, L500.4100, L100.0500, [id number] #### [facility] [address] [place], [address] HGB Normal 12.0-15.0 [facility] Comment on above: Result Comment: Canc elled via OM: Order cancelled - Patient discharged Performed By: #### L 500.4050, L500.4100, L100.0500, [id number] #### [facility] [address] [place], [address] MCH Normal 27.0-32.0 [facility] Comment on above: Result Comment: Canc elled via OM: Order cancelled - Patient discharged Performed By: #### L 500.4050, L500.4100, L100.0500, [id number] #### [facility] [address] [place], [address] MCHC Normal 32-36 [facility] Comment on above: Result Comment: Canc elled via OM: Order cancelled - Patient discharged Performed By: #### L 500.4050, L500.4100, L100.0500, [id number] #### [facility] [address] [place], [address] MCV Normal 81-99 [facility] Comment on above: Result Comment: Canc elled via OM: Order cancelled - Patient discharged Performed By: #### L 500.4050, L500.4100, L100.0500, [id number] #### [facility] [address] [place], [address] NEUT% Normal 47-70 [facility] Comment on above: Result Comment: Canc elled via OM: Order cancelled - Patient discharged Performed By: #### L 500.4050, L500.4100, L100.0500, [id number] #### [facility] [address] [place], [address] PLT Normal 150-450 [facility] Comment on above: Result Comment: Canc elled via OM: Order cancelled - Patient discharged Performed By: #### L 500.4050, L500.4100, L100.0500, [id number] #### [facility] [address] [place], [address] RBC Normal 4.2-5.4 [facility] Comment on above: Result Comment: Canc elled via OM: Order cancelled - Patient discharged Performed By: #### L 500.4050, L500.4100, L100.0500, L501.9520 #### [facility] [address] [place], [address] RDW CV Normal 11.6-14.6 [facility] Comment on above: Result Comment: Canc elled via OM: Order cancelled - Patient discharged Performed By: #### L 500.4050, L500.4100, L100.0500, L501.9520 #### [facility] [address] [place], [address] RDW SD Normal 35.1-43.9 [facility] Comment on above: Result Comment: Canc elled via OM: Order cancelled - Patient discharged Performed By: #### L 500.4050, L500.4100, L100.0500, L501.9520 #### [facility] [address] [place], [address] WBC Normal 4.4-11.0 [facility] Comment on above: Result Comment: Canc elled via OM: Order cancelled - Patient discharged Performed By: #### L 500.4050, L500.4100, L100.0500, L501.9520 #### [facility] [address] [place], [address] Basic Metabolic Profile (BMP )on 02-25-2025 BUN Normal 4-19 [facility] Comment on above: Result Comment: Canc elled via OM: Order cancelled - Patient discharged Performed By: #### L 300.3900, L100.0100, L500.4050, L300.4310, L503.6005, M200.1000 #### [facility] [address] [place], [address] BUN/CRE Normal 10-20 [facility] Comment on above: Result Comment: Canc elled via OM: Order cancelled - Patient discharged Performed By: #### L 300.3900, L100.0100, L500.4050, L300.4310, L503.6005, M200.1000 #### [facility] [address] [place], [address] Calcium Normal 7.6-11.0 [facility] Comment on above: Result Comment: Canc elled via OM: Order cancelled - Patient discharged Performed By: #### L 300.3900, L100.0100, L500.4050, L300.4310, L503.6005, M200.1000 #### [facility] [address] [place], [address] CL Normal 98-108 [facility] Comment on above: Result Comment: Canc elled via OM: Order cancelled - Patient discharged Performed By: #### L 300.3900, L100.0100, L500.4050, L300.4310, L503.6005, M200.1000 #### [facility] [address] [place], [address] CO2 Normal 21.0-32.0 [facility] Comment on above: Result Comment: Canc elled via OM: Order cancelled - Patient discharged Performed By: #### L 300.3900, L100.0100, L500.4050, L300.4310, L503.6005, M200.1000 #### [facility] [address] [place], [address] CREAT,SERUM Normal 0.70-1.20 [facility] Comment on above: Result Comment: Canc elled via OM: Order cancelled - Patient discharged Performed By: #### L 300.3900, L100.0100, L500.4050, L300.4310, L503.6005, M200.1000 #### [facility] [address] [place], [address] eGFR Normal >60 [facility] Comment on above: Result Comment: Canc elled via OM: Order cancelled - Patient discharged Performed By: #### L 300.3900, L100.0100, L500.4050, L300.4310, L503.6005, M200.1000 #### [facility] [address] [place], [address] GAP Normal 5-15 [facility] Comment on above: Result Comment: Canc elled via OM: Order cancelled - Patient discharged Performed By: #### L 300.3900, L100.0100, L500.4050, L300.4310, L503.6005, M200.1000 #### [facility] [address] [place], [address] GLU Normal 70-99 [facility] Comment on above: Result Comment: Canc elled via OM: Order cancelled - Patient discharged Performed By: #### L 300.3900, L100.0100, L500.4050, L300.4310, L503.6005, M200.1000 #### [facility] [address] [place], [address] Potassium Normal 3.3-5.1 [facility] Comment on above: Result Comment: Canc elled via OM: Order cancelled - Patient discharged Performed By: #### L 300.3900, L100.0100, L500.4050, L300.4310, L503.6005, M200.1000 #### [facility] [address] [place], [address] Basic Metabolic Profile (BMP) Normal 133-145 [facility] Comment on above: Result Comment: Canc elled via OM: Order cancelled - Patient discharged Performed By: #### L 300.3900, L100.0100, L500.4050, L300.4310, L503.6005, M200.1000 #### [facility] [address] [place], [address] CBC W/Diff, Automatedon 05-0 Absolute Neut Normal 2.0-7.7 [facility] Comment on above: Result Comment: Canc elled via OM: Order cancelled - Patient discharged Performed By: #### L 300.3900, L100.0100, L500.4050, L300.4310, L503.6005, M200.1000 #### [facility] [address] [place], [address] HCT Normal 37-47 [facility] Comment on above: Result Comment: Canc elled via OM: Order cancelled - Patient discharged Performed By: #### L 300.3900, L100.0100, L500.4050, L300.4310, L503.6005, M200.1000 #### [facility] [address] [place], [address] HGB Normal 12.0-15.0 [facility] Comment on above: Result Comment: Canc elled via OM: Order cancelled - Patient discharged Performed By: #### L 300.3900, L100.0100, L500.4050, L300.4310, L503.6005, M200.1000 #### [facility] [address] [place], [address] MCH Normal 27.0-32.0 [facility] Comment on above: Result Comment: Canc elled via OM: Order cancelled - Patient discharged Performed By: #### L 300.3900, L100.0100, L500.4050, L300.4310, L503.6005, M200.1000 #### [facility] [address] [place], [address] MCHC Normal 32-36 [facility] Comment on above: Result Comment: Canc elled via OM: Order cancelled - Patient discharged Performed By: #### L 300.3900, L100.0100, L500.4050, L300.4310, L503.6005, M200.1000 #### [facility] [address] [place], [address] MCV Normal 81-99 [facility] Comment on above: Result Comment: Canc elled via OM: Order cancelled - Patient discharged Performed By: #### L 300.3900, L100.0100, L500.4050, L300.4310, L503.6005, M200.1000 #### [facility] [address] [place], [address] NEUT% Normal 47-70 [facility] Comment on above: Result Comment: Canc elled via OM: Order cancelled - Patient discharged Performed By: #### L 300.3900, L100.0100, L500.4050, L300.4310, L503.6005, M200.1000 #### [facility] [address] [place], [address] PLT Normal 150-450 [facility] Comment on above: Result Comment: Canc elled via OM: Order cancelled - Patient discharged Performed By: #### L 300.3900, L100.0100, L500.4050, L300.4310, L503.6005, M200.1000 #### [facility] [address] [place], [address] RBC Normal 4.2-5.4 [facility] Comment on above: Result Comment: Canc elled via OM: Order cancelled - Patient discharged Performed By: #### L 300.3900, L100.0100, L500.4050, L300.4310, L503.6005, M200.1000 #### [facility] [address] [place], [address] RDW CV Normal 11.6-14.6 [facility] Comment on above: Result Comment: Canc elled via OM: Order cancelled - Patient discharged Performed By: #### L 300.3900, L100.0100, L500.4050, L300.4310, L503.6005, M200.1000 #### [facility] [address] [place], [address] RDW SD Normal 35.1-43.9 [facility] Comment on above: Result Comment: Canc elled via OM: Order cancelled - Patient discharged Performed By: #### L 300.3900, L100.0100, L500.4050, L300.4310, L503.6005, M200.1000 #### [facility] [address] [place], [address] WBC Normal 4.4-11.0 [facility] Comment on above: Result Comment: Canc elled via OM: Order cancelled - Patient discharged Performed By: #### L 300.3900, L100.0100, L500.4050, L300.4310, L503.6005, M200.1000 #### [facility] [address] [place], [address] Basic Metabolic Profile (BMP )on 02-24-2025 BUN Normal 4-19 [facility] Comment on above: Result Comment: Canc elled via OM: Order cancelled - Patient discharged Performed By: #### L 500.4050, L500.4100, L100.0500, L501.9520 #### [facility] [address] [place], [address] BUN/CRE Normal 10-20 [facility] Comment on above: Result Comment: Canc elled via OM: Order cancelled - Patient discharged Performed By: #### L 500.4050, L500.4100, L100.0500, L501.9520 #### [facility] [address] [place], [address] Calcium Normal 7.6-11.0 [facility] Comment on above: Result Comment: Canc elled via OM: Order cancelled - Patient discharged Performed By: #### L 500.4050, L500.4100, L100.0500, L501.9520 #### [facility] [address] [place], [address] CL Normal 98-108 [facility] Comment on above: Result Comment: Canc elled via OM: Order cancelled - Patient discharged Performed By: #### L 500.4050, L500.4100, L100.0500, L501.9520 #### [facility] [address] [place], [address] CO2 Normal 21.0-32.0 [facility] Comment on above: Result Comment: Canc elled via OM: Order cancelled - Patient discharged Performed By: #### L 500.4050, L500.4100, L100.0500, L501.9520 #### [facility] [address] [place], [address] CREAT,SERUM Normal 0.70-1.20 [facility] Comment on above: Result Comment: Canc elled via OM: Order cancelled - Patient discharged Performed By: #### L 500.4050, L500.4100, L100.0500, L501.9520 #### [facility] [address] [place], [address] eGFR Normal >60 [facility] Comment on above: Result Comment: Canc elled via OM: Order cancelled - Patient discharged Performed By: #### L 500.4050, L500.4100, L100.0500, L501.9520 #### [facility] [address] [place], [address] GAP Normal 5-15 [facility] Comment on above: Result Comment: Canc elled via OM: Order cancelled - Patient discharged Performed By: #### L 500.4050, L500.4100, L100.0500, L501.9520 #### [facility] [address] [place], [address] GLU Normal 70-99 [facility] Comment on above: Result Comment: Canc elled via OM: Order cancelled - Patient discharged Performed By: #### L 500.4050, L500.4100, L100.0500, L501.9520 #### [facility] [address] [place], [address] Potassium Normal 3.3-5.1 [facility] [facility] Comment on above: Result Comment: Canc elled via OM: Order cancelled - Patient discharged Performed By: #### L 500.4050, L500.4100, L100.0500, L501.9520 #### [facility] [address] [place], [address] Basic Metabolic Profile (BMP) Normal 133-145 [facility] Comment on above: Result Comment: Canc elled via OM: Order cancelled - Patient discharged Performed By: #### L 500.4050, L500.4100, L100.0500, [id number] #### [facility] [address] [place], [address] CBC W/Diff, Automatedon 04-3 0-2024 Absolute Neut Normal 2.0-7.7 [facility] Comment on above: Result Comment: Canc elled via OM: Order cancelled - Patient discharged Performed By: #### L 500.4050, L500.4100, L100.0500, [id number] #### [facility] [address] [place], [address] HCT Normal 37-47 [facility] Comment on above: Result Comment: Canc elled via OM: Order cancelled - Patient discharged Performed By: #### L 500.4050, L500.4100, L100.0500, [id number] #### [facility] [address] [place], [address] HGB Normal 12.0-15.0 [facility] Comment on above: Result Comment: Canc elled via OM: Order cancelled - Patient discharged Performed By: #### L 500.4050, L500.4100, L100.0500, [id number] #### [facility] [address] [place], [address] MCH Normal 27.0-32.0 [facility] Comment on above: Result Comment: Canc elled via OM: Order cancelled - Patient discharged Performed By: #### L 500.4050, L500.4100, L100.0500, [id number] #### [facility] [address] [place], [address] MCHC Normal 32-36 [facility] Comment on above: Result Comment: Canc elled via OM: Order cancelled - Patient discharged Performed By: #### L 500.4050, L500.4100, L100.0500, [id number] #### [facility] [address] [place], [address] MCV Normal 81-99 [facility] Comment on above: Result Comment: Canc elled via OM: Order cancelled - Patient discharged Performed By: #### L 500.4050, L500.4100, L100.0500, [id number] #### [facility] [address] [place], [address] NEUT% Normal 47-70 [facility] Comment on above: Result Comment: Canc elled via OM: Order cancelled - Patient discharged Performed By: #### L 500.4050, L500.4100, L100.0500, [id number] #### [facility] [address] [place], [address] PLT Normal 150-450 [facility] Comment on above: Result Comment: Canc elled via OM: Order cancelled - Patient discharged Performed By: #### L 500.4050, L500.4100, L100.0500, [id number] #### [facility] [address] [place], [address] RBC Normal 4.2-5.4 [facility] Comment on above: Result Comment: Canc elled via OM: Order cancelled - Patient discharged Performed By: #### L 500.4050, L500.4100, L100.0500, [id number] #### [facility] [address] [place], [address] RDW CV Normal 11.6-14.6 [facility] Comment on above: Result Comment: Canc elled via OM: Order cancelled - Patient discharged Performed By: #### L 500.4050, L500.4100, L100.0500, [id number] #### [facility] [address] [place], [address] RDW SD Normal 35.1-43.9 [facility] Comment on above: Result Comment: Canc elled via OM: Order cancelled - Patient discharged Performed By: #### L 500.4050, L500.4100, L100.0500, [id number] #### [facility] [address] [place], [address] WBC Normal 4.4-11.0 [facility] Comment on above: Result Comment: Canc elled via OM: Order cancelled - Patient discharged Performed By: #### L 500.4050, L500.4100, L100.0500, [id number] #### [facility] [address] [place], [address] Culture, Blood (WB)on 2024 CUB Blood cultures x2, f rom two different sites No growth in 5 days. Normal [facility] Comment on above: Performed By: #### L 300.3900, L100.0100, L500.4050, L300.4310, L503.6005, M200.1000 ####[facility] [address] [place], [address] Absolute lymphocyte countOrd ered By: Yee Jones on 02-23-2025 Lymphocytes Auto (Unsp spec) [#/Vol] 0.85 10*3/uL 0.83-4.51 [facility] Absolute neutrophil countOrd ered By: Yee Jones on 02-23-2025 Neutrophils (Bld) [#/Vol] 5.9 10*3/uL 2.0-7.7 [facility] Anion gap in Serum or Plasma Ordered By: Yee Jones on 02-23-2025 Anion gap [Moles/Vol] 9 mmol/L 5-15 [facility] Automated lymphocyte count a s percentage of total leukocytesOrdered By: Yee Jones on 02-23-2025 Lymphocytes/100 WBC Auto (Unsp spec) 11.2 % Low 19-41 [facility] BUN/creatinine ratioOrdered By: Yeepeggy Jones on 02-23-2025 Urea nitrogen/Creatinine [Mass ratio] 31.6 mg/mg High 10-20 [facility] Basic Metabolic Profile (BMP )on 02-23-2025 BUN/CRE 31.6 RATIO High 10-20 [facility] Comment on above: Performed By: #### L 500.4050, L500.4100, L100.0500, L501.9520 #### [facility] [address] [place], [address] Calcium [Mass/Vol] 9.4 mg/dL Normal 7.6-11.0 [facility] Comment on above: Performed By: #### L 500.4050, L500.4100, L100.0500, L501.9520 #### [facility] [address] [place], [address] Chloride [Moles/Vol] 96 mmol/L Low 98-108 [facility] Comment on above: Performed By: #### L 500.4050, L500.4100, L100.0500, L501.9520 #### [facility] [address] [place], [address] CO2 [Moles/Vol] 40.2 mmol/L High 21.0-32.0 [facility] Comment on above: Performed By: #### L 500.4050, L500.4100, L100.0500, L501.9520 #### [facility] [address] [place], [address] Creatinine [Mass/Vol] 0.62 mg/dL Low 0.70-1.20 [facility] Comment on above: Performed By: #### L 500.4050, L500.4100, L100.0500, [id number] #### [facility] [address] [place], [address] ECRCL 86.12 ml/min Normal 50-250 [facility] Comment on above: Performed By: #### L 500.4050, L500.4100, L100.0500, L501.9520 #### [facility] [address] [place], [address] GAP 9 Normal 5-15 [facility] Comment on above: Performed By: #### L 500.4050, L500.4100, L100.0500, [id number] #### [facility] [address] [place], [address] GFR/1.73 sq M.predicted among non-blacks MDRD (S/P/Bld) [Vol rate/Area] 97 mL/min/{1.73_m2} Normal >60 [facility] Comment on above: Result Comment: mL/m in/1.73m2 CKD-EPI Creatinine Equation (2020) Performed By: #### L 500.4050, L500.4100, L100.0500, L501.9520 #### [facility] [address] [place], [address] Glucose [Mass/Vol] 114 mg/dL High 70-99 [facility] Comment on above: Performed By: #### L 500.4050, L500.4100, L100.0500, L501.9520 #### [facility] [address] [place], [address] Potassium [Moles/Vol] 3.3 mmol/L Normal 3.3-5.1 [facility] Comment on above: Performed By: #### L 500.4050, L500.4100, L100.0500, L501.9520 #### [facility] [address] [place], [address] Sodium [Moles/Vol] 145 mmol/L Normal 133-145 [facility] Comment on above: Performed By: #### L 500.4050, L500.4100, L100.0500, L501.9520 #### [facility] [address] [place], [address] Urea nitrogen [Mass/Vol] 20 mg/dL High 4-19 [facility] Comment on above: Performed By: #### L 500.4050, L500.4100, L100.0500, L501.9520 #### [facility] [address] [place], [address] Basophil percentageOrdered B y: Yee Jones on 02-23-2025 Basophils/100 WBC (Bld) 0.7 % 0-1 [facility] CBC W/Diff, Automatedon 01-27 Absolute Lymph 0.85 X10 3/uL Normal 0.83-4.51 [facility] Comment on above: Performed By: #### L 500.4050, L500.4100, L100.0500, L501.9520 #### [facility] [address] [place], [address] Absolute Neut 5.9 X10 3/uL Normal 2.0-7.7 [facility] Comment on above: Performed By: #### L 500.4050, L500.4100, L100.0500, L501.9520 #### [facility] [address] [place], [address] Basophils/100 WBC (Bld) 0.7 % Normal 0-1 [facility] Comment on above: Performed By: #### L 500.4050, L500.4100, L100.0500, L501.9520 #### [facility] [address] [place], [address] Eosinophils/100 WBC (Bld) 1.7 % Normal 0-5 [facility] Comment on above: Performed By: #### L 500.4050, L500.4100, L100.0500, L501.9520 #### [facility] [address] [place], [address] Erythrocyte distribution width (RBC) [Ratio] 14.3 % Normal 11.6-14.6 [facility] Comment on above: Performed By: #### L 500.4050, L500.4100, L100.0500, L501.9520 #### [facility] [address] [place], [address] Hematocrit (Bld) [Volume fraction] 45.7 % Normal 37-47 [facility] Comment on above: Performed By: #### L 500.4050, L500.4100, L100.0500, L501.9520 #### [facility] [address] [place], [address] Hemoglobin (Bld) [Mass/Vol] 14.1 g/dL Normal 12.0-15.0 [facility] Comment on above: Performed By: #### L 500.4050, L500.4100, L100.0500, L501.9520 #### [facility] [address] [place], [address] IG% 0.400 Normal 0.0-0.9 [facility] Comment on above: Result Comment: IG% - Immature Granulocytes (promyelocytes, myelocytes and metamyelocytes) > 1% indicates that a LEFT SHIFT is Present. Performed By: #### L 500.4050, L500.4100, L100.0500, L501.9520 #### [facility] [address] [place], [address] Lymphocytes/100 WBC (Bld) 11.2 % Low 19-41 [facility] Comment on above: Performed By: #### L 500.4050, L500.4100, L100.0500, [id number] #### [facility] [address] [place], [address] MCH (RBC) [Entitic mass] 30.9 pg Normal 27.0-32.0 [facility] Comment on above: Performed By: #### L 500.4050, L500.4100, L100.0500, L501.9520 #### [facility] [address] [place], [address] MCHC (RBC) [Mass/Vol] 30.9 g/dL Low 32-36 [facility] Comment on above: Performed By: #### L 500.4050, L500.4100, L100.0500, L501.9520 #### [facility] [address] [place], [address] MCV (RBC) [Entitic vol] 100.2 fL High 81-99 [facility] Comment on above: Performed By: #### L 500.4050, L500.4100, L100.0500, L501.9520 #### [facility] [address] [place], [address] Monocytes/100 WBC (Bld) 7.9 % Normal 0-10 [facility] Comment on above: Performed By: #### L 500.4050, L500.4100, L100.0500, L501.9520 #### [facility] [address] [place], [address] Neutrophils/100 WBC (Bld) 78.1 % High 47-70 [facility] Comment on above: Performed By: #### L 500.4050, L500.4100, L100.0500, L501.9520 #### [facility] [address] [place], [address] Nucleated RBC (Bld) [#/Vol] 0 10*3/uL Normal 0-5 [facility] Comment on above: Performed By: #### L 500.4050, L500.4100, L100.0500, L501.9520 #### [facility] [address] [place], [address] Platelet mean volume (Bld) [Entitic vol] 10.7 fL Normal 6.2-12.0 [facility] Comment on above: Performed By: #### L 500.4050, L500.4100, L100.0500, L501.9520 #### [facility] [address] [place], [address] Platelets (Bld) [#/Vol] 217 10*3/uL Normal 150-450 [facility] Comment on above: Performed By: #### L 500.4050, L500.4100, L100.0500, L501.9520 #### [facility] [address] [place], [address] RBC (Bld) [#/Vol] 4.56 10*6/uL Normal 4.2-5.4 [facility] Comment on above: Performed By: #### L 500.4050, L500.4100, L100.0500, L501.9520 #### [facility] [address] [place], [address] RDW SD 53.5 fl High 35.1-43.9 [facility] Comment on above: Performed By: #### L 500.4050, L500.4100, L100.0500, L501.9520 #### [facility] [address] [place], [address] WBC (Bld) [#/Vol] 7.6 10*3/uL Normal 4.4-11.0 [facility] Comment on above: Performed By: #### L 500.4050, L500.4100, L100.0500, L501.9520 #### [facility] [address] [place], [address] Carbon dioxide, total [Moles /volume] in Central venous bloodOrdered By: Yee Jones on 02-23-2025 CO2 [Moles/Vol] 40.2 mmol/L High 21.0-32.0 [facility] Chloride assayOrdered By: Na na Robert on 02-23-2025 Chloride [Moles/Vol] 96 mmol/L Low 98-108 [facility] Discharge Instructionon 01-27 Discharge Instruction [facility] Medical Records Department [address] [place] [address] Instructions for Home/Discharge Instructions 02/23/25 1320 MR#: [id number] Acct: [id number] Name: RAJENDRA LUCERO Rep #: [id number] : 1955 69 From: Yee Jones MD [...] [Daily Multi-Vitamin] Tablet 1 tab PO DAILY [place] Saline 0.65 % aerosol,spray 1 spray intranasal [...] DO; Dr. Kym Norton MD Signed Normal [facility] Eosinophil percentageOrdered By: Yee Jones on 02-23-2025 Eosinophils/100 WBC (Bld) 1.7 % 0-5 [facility] Erythrocyte distribution wid th (RBC) [Ratio]Ordered By: Yee Jones on 02-23-2025 Erythrocyte distribution width (RBC) [Entitic vol] 53.5 fL High 35.1-43.9 [facility] Erythrocyte distribution wid th ratioOrdered By: Yee Jones 02-23-2025 Erythrocyte distribution width (RBC) [Ratio] 14.3 % 11.6-14.6 [facility] Erythrocyte distribution wid th standard deviationOrdered By: Yee Jones on 02-23-2025 Erythrocyte distribution width (RBC) [Ratio] 53.5 fl High 35.1-43.9 [facility] Estimation of creatinine dilan aranceOrdered By: Yee Jones on 02-23-2025 Estimated Creatinine Clearance Calc 86.12 ml/min 50-250 [facility] GFR/1.73 sq M.predicted rosalba g non-blacks MDRD (S/P/Bld) [Vol rate/Area]Ordered By: Yee Jones 02-23-2025 Estimated GFR (MDRD) Non-Af Amer 97 >60 [facility] Comment on above: mL/min/1.73m2 CKD-EP I Creatinine Equation (2020) Glomerular filtration rate ( GFR) estimation/1.73 sq m using serum, plasma, or whole bOrdered By: Yee Jones 02-23-2025 GFR/1.73 sq M.predicted among non-blacks MDRD (S/P/Bld) [Vol rate/Area] 97 mL/min/{1.73_m2} >60 [facility] Comment on above: mL/min/1.73m2 CKD-EP I Creatinine Equation (2020) Hematocrit Auto (Bld) [Volum e fraction]Ordered By: Yee Jones 02-23-2025 Hematocrit (Bld) [Volume fraction] 45.7 % 37-47 [facility] Hemoglobin measurementOrdere d By: Yee Jones 02-23-2025 Hemoglobin (Bld) [Mass/Vol] 14.1 g/dL 12.0-15.0 [facility] Immature granulocytes/100 WB C Auto (Bld)Ordered By: Yee Jones 02-23-2025 Immature granulocytes/100 WBC (Bld) 0.400 % 0.0-0.9 [facility] Comment on above: IG% - Immature Granu locytes (promyelocytes, myelocytes and metamyelocytes) > 1% indicates that a LEFT SHIFT is Present. Lymphocytes Auto (Unsp spec) [#/Vol]Ordered By: Yee Jones on 02-23-2025 Lymphocytes (Bld) [#/Vol] 0.85 10*3/uL 0.83-4.51 [facility] Lymphocytes/100 WBC Auto (Un sp spec)Ordered By: Yee Jones on 02-23-2025 Lymphocytes/100 WBC (Bld) 11.2 % Low 19-41 [facility] MCV (mean corpuscular volume ) determinationOrdered By: Yee Jones on 02-23-2025 MCV (RBC) [Entitic vol] 100.2 fL High 81-99 [facility] Mean corpuscular hemoglobin (MCH) determinationOrdered By: Yee Jones on 02-23-2025 MCH (RBC) [Entitic mass] 30.9 pg 27.0-32.0 [facility] Mean corpuscular hemoglobin concentration (MCHC) determinationOrdered By: Yee Jones on 02-23-2025 MCHC (RBC) [Mass/Vol] 30.9 g/dL Low 32-36 [facility] Mean platelet volume determi nationOrdered By: Yee Jones on 02-23-2025 Platelet mean volume (Bld) [Entitic vol] 10.7 fL 6.2-12.0 [facility] Monocyte percentageOrdered B y: Yee Jones on 02-23-2025 Monocytes/100 WBC (Bld) 7.9 % 0-10 [facility] Neutrophil percentageOrdered By: Yee Jones on 02-23-2025 Neutrophils/100 WBC (Bld) 78.1 % High 47-70 [facility] Nucleated red blood cell per centageOrdered By: Yee Jones on 02-23-2025 Nucleated RBC/100 WBC (Bld) [Ratio] 0 % 0-5 [facility] Platelet countOrdered By: Abida Jones on 02-23-2025 Platelets (Bld) [#/Vol] 217 10*3/uL 150-450 [facility] Potassium (Unsp spec) [Mass/ Vol]Ordered By: Yee Jones on 02-23-2025 Potassium [Moles/Vol] 3.3 mmol/L 3.3-5.1 [facility] Potassium measurement (mass/ volume)Ordered By: Yee Jones on 02-23-2025 Potassium (Unsp spec) [Mass/Vol] 3.3 mmol/L 3.3-5.1 [facility] RBC Auto (Bld) [#/Vol]Ordere d By: Yee Jones on 02-23-2025 RBC (Bld) [#/Vol] 4.56 10*6/uL 4.2-5.4 [facility] Serum creatinine measurement (mass/volume)Ordered By: Yee Jones on 02-23-2025 Creatinine [Mass/Vol] 0.62 mg/dL Low 0.70-1.20 [facility] Serum glucose measurement (m ass/volume)Ordered By: Yee Jones on 02-23-2025 Glucose [Mass/Vol] 114 mg/dL High 70-99 [facility] Serum or plasma calcium tad urement (mass/volume)Ordered By: Yee Jones on 02-23-2025 Calcium [Mass/Vol] 9.4 mg/dL 7.6-11.0 [facility] Serum or plasma urea nitroge n measurement (mass/volume)Ordered By: Yee Jones on 02-23-2025 Urea nitrogen [Mass/Vol] 20 mg/dL High 4-19 [facility] Sodium levelOrdered By: Yee Jones on 02-23-2025 Sodium [Moles/Vol] 145 mmol/L 133-145 [facility] White blood cell (WBC) count Ordered By: Yee Jones on 02-23-2025 WBC (Bld) [#/Vol] 7.6 10*3/uL 4.4-11.0 [facility] Basic Metabolic Profile (BMP )on 02-22-2025 BUN/CRE 36.2 RATIO High 10-20 [facility] Comment on above: Performed By: #### L 500.4050, L500.4100, L100.0500, L501.9520 #### [facility] [address] [place], [address] Calcium [Mass/Vol] 9.4 mg/dL Normal 7.6-11.0 [facility] Comment on above: Performed By: #### L 500.4050, L500.4100, L100.0500, L501.9520 #### [facility] [address] [place], [address] Chloride [Moles/Vol] 96 mmol/L Low 98-108 [facility] Comment on above: Performed By: #### L 500.4050, L500.4100, L100.0500, L501.9520 #### [facility] [address] [place], [address] CO2 [Moles/Vol] 36.4 mmol/L High 21.0-32.0 [facility] Comment on above: Performed By: #### L 500.4050, L500.4100, L100.0500, L501.9520 #### [facility] [address] [place], [address] Creatinine [Mass/Vol] 0.60 mg/dL Low 0.70-1.20 [facility] Comment on above: Performed By: #### L 500.4050, L500.4100, L100.0500, L501.9520 #### [facility] [address] [place], [address] ECRCL 86.29 ml/min Normal 50-250 [facility] Comment on above: Performed By: #### L 500.4050, L500.4100, L100.0500, L501.9520 #### [facility] [address] [place], [address] GAP 11 Normal 5-15 [facility] Comment on above: Performed By: #### L 500.4050, L500.4100, L100.0500, L501.9520 #### [facility] [address] [place], [address] GFR/1.73 sq M.predicted among non-blacks MDRD (S/P/Bld) [Vol rate/Area] 98 mL/min/{1.73_m2} Normal >60 [facility] Comment on above: Result Comment: mL/m in/1.73m2 CKD-EPI Creatinine Equation (2020) Performed By: #### L 500.4050, L500.4100, L100.0500, L501.9520 #### [facility] [address] [place], [address] Glucose [Mass/Vol] 115 mg/dL High 70-99 [facility] Comment on above: Performed By: #### L 500.4050, L500.4100, L100.0500, L501.9520 #### [facility] [address] [place], [address] Potassium [Moles/Vol] 3.5 mmol/L Normal 3.3-5.1 [facility] Comment on above: Performed By: #### L 500.4050, L500.4100, L100.0500, L501.9520 #### [facility] [address] [place], [address] Sodium [Moles/Vol] 144 mmol/L Normal 133-145 [facility] Comment on above: Performed By: #### L 500.4050, L500.4100, L100.0500, L501.9520 #### [facility] [address] [place], [address] Urea nitrogen [Mass/Vol] 22 mg/dL High 4-19 [facility] Comment on above: Performed By: #### L 500.4050, L500.4100, L100.0500, L501.9520 #### [facility] [address] [place], [address] CBC-Complete Blood Cnt No Di ffon 02-22-2025 Erythrocyte distribution width (RBC) [Ratio] 14.5 % Normal 11.6-14.6 [facility] Comment on above: Performed By: #### L 500.4050, L500.4100, L100.0500, L501.9520 #### [facility] [address] [place], [address] Hematocrit (Bld) [Volume fraction] 42.6 % Normal 37-47 [facility] Comment on above: Performed By: #### L 500.4050, L500.4100, L100.0500, L501.9520 #### [facility] [facility] [address] [place], [address] Hemoglobin (Bld) [Mass/Vol] 13.2 g/dL Normal 12.0-15.0 [facility] Comment on above: Performed By: #### L 500.4050, L500.4100, L100.0500, L501.9520 #### [facility] [address] [place], [address] MCH (RBC) [Entitic mass] 31.4 pg Normal 27.0-32.0 [facility] Comment on above: Performed By: #### L 500.4050, L500.4100, L100.0500, L501.9520 #### [facility] [address] [place], [address] MCHC (RBC) [Mass/Vol] 31.0 g/dL Low 32-36 [facility] Comment on above: Performed By: #### L 500.4050, L500.4100, L100.0500, L501.9520 #### [facility] [address] [place], [address] MCV (RBC) [Entitic vol] 101.2 fL High 81-99 [facility] Comment on above: Performed By: #### L 500.4050, L500.4100, L100.0500, L501.9520 #### [facility] [address] [place], [address] Platelet mean volume (Bld) [Entitic vol] 11.3 fL Normal 6.2-12.0 [facility] Comment on above: Performed By: #### L 500.4050, L500.4100, L100.0500, L501.9520 #### [facility] [address] [place], [address] Platelets (Bld) [#/Vol] 189 10*3/uL Normal 150-450 [facility] Comment on above: Performed By: #### L 500.4050, L500.4100, L100.0500, L501.9520 #### [facility] [address] [place], [address] RBC (Bld) [#/Vol] 4.21 10*6/uL Normal 4.2-5.4 [facility] Comment on above: Performed By: #### L 500.4050, L500.4100, L100.0500, L501.9520 #### [facility] [address] [place], [address] RDW SD 54.4 fl High 35.1-43.9 [facility] Comment on above: Performed By: #### L 500.4050, L500.4100, L100.0500, L501.9520 #### [facility] [address] [place], [address] WBC (Bld) [#/Vol] 8.1 10*3/uL Normal 4.4-11.0 [facility] Comment on above: Performed By: #### L 500.4050, L500.4100, L100.0500, L501.9520 #### [facility] [address] [place], [address] Magnesiumon 02-22-2025 Magnesium [Mass/Vol] 2.2 mg/dL Normal 1.5-2.2 [facility] Comment on above: Performed By: #### L 500.4050, L500.4100, L100.0500, L501.9520 #### [facility] [address] [place], [address] Magnesium (Unsp spec) [Mass/ Vol]Ordered By: Claudia Valerio on 02-22-2025 Magnesium [Mass/Vol] 2.2 mg/dL 1.5-2.2 [facility] Magnesium measurement (mass/ volume)Ordered By: Claudia Valerio on 02-22-2025 Magnesium (Unsp spec) [Mass/Vol] 2.2 mg/dL 1.5-2.2 [facility] Phosphoruson 02-22-2025 Phosphate [Mass/Vol] 4.9 mg/dL High 2.7-4.5 [facility] Comment on above: Performed By: #### L 500.4050, L500.4100, L100.0500, L501.9520 #### [facility] [address] [place], [address] Serum phosphorus measurement Ordered By: Claudia Valerio on 02-22-2025 Phosphorus Level 4.9 mg/dL High 2.7-4.5 [facility] Basic Metabolic Profile (BMP )on 02-21-2025 BUN/CRE 40.7 RATIO High 10-20 [facility] Comment on above: Performed By: #### L 500.4050, L500.4100, L100.0500, L501.9520 #### [facility] [address] [place], [address] Calcium [Mass/Vol] 8.9 mg/dL Normal 7.6-11.0 [facility] Comment on above: Performed By: #### L 500.4050, L500.4100, L100.0500, L501.9520 #### [facility] [address] [place], [address] Chloride [Moles/Vol] 96 mmol/L Low 98-108 [facility] Comment on above: Performed By: #### L 500.4050, L500.4100, L100.0500, L501.9520 #### [facility] [address] [place], [address] CO2 [Moles/Vol] 39.0 mmol/L High 21.0-32.0 [facility] Comment on above: Performed By: #### L 500.4050, L500.4100, L100.0500, L501.9520 #### [facility] [address] [place], [address] Creatinine [Mass/Vol] 0.54 mg/dL Low 0.70-1.20 [facility] Comment on above: Performed By: #### L 500.4050, L500.4100, L100.0500, L501.9520 #### [facility] [address] [place], [address] ECRCL 85.99 ml/min Normal 50-250 [facility] Comment on above: Performed By: #### L 500.4050, L500.4100, L100.0500, L501.9520 #### [facility] [address] [place], [address] GAP 9 Normal 5-15 [facility] Comment on above: Performed By: #### L 500.4050, L500.4100, L100.0500, L501.9520 #### [facility] [address] [place], [address] GFR/1.73 sq M.predicted among non-blacks MDRD (S/P/Bld) [Vol rate/Area] 101 mL/min/{1.73_m2} Normal >60 [facility] Comment on above: Result Comment: mL/m in/1.73m2 CKD-EPI Creatinine Equation (2020) Performed By: #### L 500.4050, L500.4100, L100.0500, L501.9520 #### [facility] [address] [place], [address] Glucose [Mass/Vol] 119 mg/dL High 70-99 [facility] Comment on above: Performed By: #### L 500.4050, L500.4100, L100.0500, L501.9520 #### [facility] [address] [place], [address] Potassium [Moles/Vol] 3.3 mmol/L Normal 3.3-5.1 [facility] Comment on above: Performed By: #### L 500.4050, L500.4100, L100.0500, L501.9520 #### [facility] [address] [place], [address] Sodium [Moles/Vol] 144 mmol/L Normal 133-145 [facility] Comment on above: Performed By: #### L 500.4050, L500.4100, L100.0500, L501.9520 #### [facility] [address] [place], [address] Urea nitrogen [Mass/Vol] 22 mg/dL High 4-19 [facility] Comment on above: Performed By: #### L 500.4050, L500.4100, L100.0500, L501.9520 #### [facility] [address] [place], [address] CBC-Complete Blood Cnt No Di ffon 02-21-2025 Erythrocyte distribution width (RBC) [Ratio] 14.6 % Normal 11.6-14.6 [facility] Comment on above: Performed By: #### L 500.4050, L500.4100, L100.0500, L501.9520 #### [facility] [address] [place], [address] Hematocrit (Bld) [Volume fraction] 40.3 % Normal 37-47 [facility] Comment on above: Performed By: #### L 500.4050, L500.4100, L100.0500, L501.9520 #### [facility] [address] [place], [address] Hemoglobin (Bld) [Mass/Vol] 12.6 g/dL Normal 12.0-15.0 [facility] Comment on above: Performed By: #### L 500.4050, L500.4100, L100.0500, L501.9520 #### [facility] [address] [place], [address] MCH (RBC) [Entitic mass] 31.3 pg Normal 27.0-32.0 [facility] Comment on above: Performed By: #### L 500.4050, L500.4100, L100.0500, L501.9520 #### [facility] [address] [place], [address] MCHC (RBC) [Mass/Vol] 31.3 g/dL Low 32-36 [facility] Comment on above: Performed By: #### L 500.4050, L500.4100, L100.0500, L501.9520 #### [facility] [address] [place], [address] MCV (RBC) [Entitic vol] 100.2 fL High 81-99 [facility] Comment on above: Performed By: #### L 500.4050, L500.4100, L100.0500, L501.9520 #### [facility] [address] [place], [address] Platelet mean volume (Bld) [Entitic vol] 10.6 fL Normal 6.2-12.0 [facility] Comment on above: Performed By: #### L 500.4050, L500.4100, L100.0500, L501.9520 #### [facility] [address] [place], [address] Platelets (Bld) [#/Vol] 226 10*3/uL Normal 150-450 [facility] Comment on above: Performed By: #### L 500.4050, L500.4100, L100.0500, L501.9520 #### [facility] [address] [place], [address] RBC (Bld) [#/Vol] 4.02 10*6/uL Low 4.2-5.4 [facility] Comment on above: Performed By: #### L 500.4050, L500.4100, L100.0500, L501.9520 #### [facility] [address] [place], [address] RDW SD 54.2 fl High 35.1-43.9 [facility] Comment on above: Performed By: #### L 500.4050, L500.4100, L100.0500, L501.9520 #### [facility] [address] [place], [address] WBC (Bld) [#/Vol] 8.9 10*3/uL Normal 4.4-11.0 [facility] Comment on above: Performed By: #### L 500.4050, L500.4100, L100.0500, L501.9520 #### [facility] [address] [place], [address] Magnesiumon 02-21-2025 Magnesium [Mass/Vol] 1.9 mg/dL Normal 1.5-2.2 [facility] Comment on above: Performed By: #### L 500.4050, L500.4100, L100.0500, L501.9520 #### [facility] [address] [place], [address] Phosphoruson 02-21-2025 Phosphate [Mass/Vol] 3.3 mg/dL Normal 2.7-4.5 [facility] Comment on above: Performed By: #### L 500.4050, L500.4100, L100.0500, L501.9520 #### [facility] [address] [place], [address] Urine Cultureon 02-21-2025 URC Below infection leve l. Mixed Gram Pos Gram Neg Org [place] Count 1000-10,000 MIXC Mixed contaminants. Submit a new specimen if indicated. Normal [facility] Comment on above: Performed By: #### L 500.4050, L500.4100, L100.0500, L501.9520 #### [facility] [address] [place], [address] Bilirubin, totalOrdered By: Kym Norton on 02-20-2025 Bilirubin [Mass/Vol] 0.43 mg/dL 0.00-1.30 [facility] CBC-Complete Blood Cnt No Di ffon 02-20-2025 Erythrocyte distribution width (RBC) [Ratio] 14.4 % Normal 11.6-14.6 [facility] Comment on above: Performed By: #### L 500.4050, L500.4100, L100.0500, L501.9520 #### [facility] [address] [place], [address] Hematocrit (Bld) [Volume fraction] 39.2 % Normal 37-47 [facility] Comment on above: Performed By: #### L 500.4050, L500.4100, L100.0500, L501.9520 #### [facility] [address] [place], [address] Hemoglobin (Bld) [Mass/Vol] 12.4 g/dL Normal 12.0-15.0 [facility] Comment on above: Performed By: #### L 500.4050, L500.4100, L100.0500, L501.9520 #### [facility] [address] [place], [address] MCH (RBC) [Entitic mass] 31.2 pg Normal 27.0-32.0 [facility] Comment on above: Performed By: #### L 500.4050, L500.4100, L100.0500, L501.9520 #### [facility] [address] [place], [address] MCHC (RBC) [Mass/Vol] 31.6 g/dL Low 32-36 [facility] Comment on above: Performed By: #### L 500.4050, L500.4100, L100.0500, L501.9520 #### [facility] [address] [place], [address] MCV (RBC) [Entitic vol] 98.7 fL Normal 81-99 [facility] Comment on above: Performed By: #### L 500.4050, L500.4100, L100.0500, L501.9520 #### [facility] [address] [place], [address] Platelet mean volume (Bld) [Entitic vol] 11.2 fL Normal 6.2-12.0 [facility] Comment on above: Performed By: #### L 500.4050, L500.4100, L100.0500, L501.9520 #### [facility] [address] [place], [address] Platelets (Bld) [#/Vol] 223 10*3/uL Normal 150-450 [facility] Comment on above: Performed By: #### L 500.4050, L500.4100, L100.0500, L501.9520 #### [facility] [address] [place], [address] RBC (Bld) [#/Vol] 3.97 10*6/uL Low 4.2-5.4 [facility] Comment on above: Performed By: #### L 500.4050, L500.4100, L100.0500, L501.9520 #### [facility] [address] [place], [address] RDW SD 52.0 fl High 35.1-43.9 [facility] Comment on above: Performed By: #### L 500.4050, L500.4100, L100.0500, L501.9520 #### [facility] [address] [place], [address] WBC (Bld) [#/Vol] 8.2 10*3/uL Normal 4.4-11.0 [facility] Comment on above: Performed By: #### L 500.4050, L500.4100, L100.0500, L501.9520 #### [facility] [address] [place], [address] CTA Chest W/WO Contraston CTA Chest W/WO Contrast [facility] [address] [place] [address] CTA Chest W/WO Contrast MR#: [id number] Acct: [id number] Name: RAJENDRA LUCERO Rep #: [id number] : 1955 F 69 From: Rustam Drummond MD PCP: Dr. Phuc Martines, Status: ADM IN Study: CTA Chest W/WO Contrast Date of Exam: 02/20/25 Exam# [id number] Ordering Dr: Claudia Valerio DO EXAM: CT [...] in 6 months is recommended. Reading Location: [id number] CC: Dr. Phuc Martines, DO; Dr. Claudia Valerio DO Valuation Consultant: Signed Normal [facility] Calculated very low density lipoprotein (VLDL) cholesterol measurementOrdered By: Kym Norton on 02-20-2025 Calculated very low density lipoprotein (VLDL) cholesterol measurement 12 mg/dL 5-40 [facility] VLDL Cholesterol 12 mg/dL 5-40 [facility] Comprehensive Metabolic Prof ilon 02-20-2025 Albumin [Mass/Vol] 3.8 g/dL Normal 3.4-4.8 [facility] Comment on above: Performed By: #### L 500.4050, L500.4100, L100.0500, L501.9520 #### [facility] [address] [place], [address] Albumin/Globulin [Mass ratio] 1.2 {ratio} Normal 0.9-2.4 [facility] Comment on above: Performed By: #### L 500.4050, L500.4100, L100.0500, L501.9520 #### [facility] [address] [place], [address] ALK PHOS 72 U/L Normal 35-104 [facility] Comment on above: Performed By: #### L 500.4050, L500.4100, L100.0500, L501.9520 #### [facility] [address] [place], [address] ALT [Catalytic activity/Vol] 42 U/L High <=34 [facility] Comment on above: Performed By: #### L 500.4050, L500.4100, L100.0500, L501.9520 #### [facility] [address] [place], [address] AST [Catalytic activity/Vol] 27 U/L Normal <=31 [facility] Comment on above: Performed By: #### L 500.4050, L500.4100, L100.0500, L501.9520 #### [facility] [address] [place], [address] Bilirubin [Mass/Vol] 0.43 mg/dL Normal 0.00-1.30 [facility] Comment on above: Performed By: #### L 500.4050, L500.4100, L100.0500, L501.9520 #### [facility] [address] [place], [address] BUN/CRE 30.9 RATIO High 10-20 [facility] Comment on above: Performed By: #### L 500.4050, L500.4100, L100.0500, L501.9520 #### [facility] [address] [place], [address] Calcium [Mass/Vol] 8.9 mg/dL Normal 7.6-11.0 [facility] Comment on above: Performed By: #### L 500.4050, L500.4100, L100.0500, L501.9520 #### [facility] [address] [place], [address] Chloride [Moles/Vol] 95 mmol/L Low 98-108 [facility] Comment on above: Performed By: #### L 500.4050, L500.4100, L100.0500, L501.9520 #### [facility] [address] [place], [address] CO2 [Moles/Vol] 34.3 mmol/L High 21.0-32.0 [facility] Comment on above: Performed By: #### L 500.4050, L500.4100, L100.0500, L501.9520 #### [facility] [address] [place], [address] Creatinine [Mass/Vol] 0.56 mg/dL Low 0.70-1.20 [facility] Comment on above: Performed By: #### L 500.4050, L500.4100, L100.0500, L501.9520 #### [facility] [address] [place], [address] ECRCL 86.85 ml/min Normal 50-250 [facility] Comment on above: Performed By: #### L 500.4050, L500.4100, L100.0500, L501.9520 #### [facility] [address] [place], [address] GAP 13 Normal 5-15 [facility] Comment on above: Performed By: #### L 500.4050, L500.4100, L100.0500, L501.9520 #### [facility] [address] [place], [address] GFR/1.73 sq M.predicted among non-blacks MDRD (S/P/Bld) [Vol rate/Area] 100 mL/min/{1.73_m2} Normal >60 [facility] Comment on above: Result Comment: mL/m in/1.73m2 CKD-EPI Creatinine Equation (2020) Performed By: #### L 500.4050, L500.4100, L100.0500, L501.9520 #### [facility] [address] [place], [address] Globulin (S) [Mass/Vol] 3.2 g/dL Normal 2.2-4.2 [facility] Comment on above: Performed By: #### L 500.4050, L500.4100, L100.0500, L501.9520 #### [facility] [address] [place], [address] Glucose [Mass/Vol] 141 mg/dL High 70-99 [facility] Comment on above: Performed By: #### L 500.4050, L500.4100, L100.0500, L501.9520 #### [facility] [address] [place], [address] Potassium [Moles/Vol] 3.8 mmol/L Normal 3.3-5.1 [facility] Comment on above: Result Comment: Hemo lysis present, Results??could be affected. ?? Performed By: #### L 500.4050, L500.4100, L100.0500, L501.9520 #### [facility] [address] [place], [address] Sodium [Moles/Vol] 142 mmol/L Normal 133-145 [facility] Comment on above: Performed By: #### L 500.4050, L500.4100, L100.0500, L501.9520 #### [facility] [address] [place], [address] T PROT 7.0 g/dL Normal 5.9-8.4 [facility] Comment on above: Performed By: #### L 500.4050, L500.4100, L100.0500, L501.9520 #### [facility] [address] [place], [address] Urea nitrogen [Mass/Vol] 17 mg/dL Normal 4-19 [facility] Comment on above: Performed By: #### L 500.4050, L500.4100, L100.0500, L501.9520 #### [facility] [address] [place], [address] Echocardiogram study reportO rdered By: Mercy Purvis on 02-20-2025 Study report [facility] [address] [place] [address] Echo Complete W/ Contrast 02/20/25 1104 MR#: [id number] Acct: [id number] Name: RAJENDRA LUCERO Rep #:[id number] : 1955 69 [...] LV V1 mean P.5 mmHg MR mean kneneth: 345.4 cm/sec LV V1 mean: 86.3 cm/sec [...] Dictated: 02/20/25 1104 Date Transcribed: 02/20/25 1156 Valuation Consultant: Signed [facility] Work Phone: LDL calc ser/plasOrdered By: Kym Norton on 02-20-2025 Cholesterol in LDL [Mass/Vol] 101 mg/dL [facility] Comment on above: Gpwghefxdd=735-262 m g/dL & Higher Offx=211 mg/dL or greater LDL Cholesterol, Calculated 101 mg/dL [facility] Comment on above: Jdmdkmjrrx=545-478 m g/dL & Higher Wrth=944 mg/dL or greater Laboratory - Chemistry and C hemistry - challengeOrdered By: Kym Norton on 02-20-2025 AST [Catalytic activity/Vol] 27 U/L <32 [facility] Lipid Profileon 02-20-2025 CHOL:HDL 2.63 Normal [facility] Comment on above: Performed By: #### L 500.4050, L500.4100, L100.0500, L501.9520 #### [facility] [address] [place], [place], [id number] Cholesterol [Mass/Vol] 183 mg/dL Normal <=200 [facility] Comment on above: Result Comment: Chol esterol level, Desirable <200 mg/dL Borderline high cholesterol 200-239 mg/dL High cholesterol >=240 mg/dL Recommendations of the NCEP Adult Treatment Panel for the following risk-cutoff thresholds for the [place] population. Performed By: #### L 500.4050, L500.4100, L100.0500, L501.9520 #### [facility] [address] [place], [place], [id number] Cholesterol in HDL [Mass/Vol] 70 mg/dL Normal [facility] Comment on above: Result Comment: Monika onal Cholesterol Education Program (NCEP) guidelines: <40 mg/dL: Low HDL-cholesterol (major risk factor for CHD) >= 60 mg/dL: High HDL-cholesterol (negative risk factor for CHD) HDL-cholesterol is affected by a number of factors, e.g. smoking, exercise, hormones, sex and age. Performed By: #### L 500.4050, L500.4100, L100.0500, L501.9520 #### [facility] [address] [place], [address] Cholesterol in LDL [Mass/Vol] 101 mg/dL Normal [facility] Comment on above: Result Comment: Bord cnrsha=362-891 mg/dL Higher Jgfy=775 mg/dL or greater Performed By: #### L 500.4050, L500.4100, L100.0500, L501.9520 #### [facility] [address] [place], [address] Cholesterol in VLDL [Mass/Vol] 12 mg/dL Normal 5-40 [facility] Comment on above: Performed By: #### L 500.4050, L500.4100, L100.0500, L501.9520 #### [facility] [address] [place], [address] Triglyceride [Mass/Vol] 61 mg/dL Normal [facility] Comment on above: Result Comment: The drugs N-Acetylcysteine and Metamizole may falsely depress this assay. Normal range: <150 mg/dL Borderline High: 150-199 mg/dL High: 200-499 mg/dL Very High: >500 mg/dL Performed By: #### L 500.4050, L500.4100, L100.0500, L501.9520 #### [facility] [address] [place], [address] Magnesiumon 02-20-2025 Magnesium [Mass/Vol] 1.9 mg/dL Normal 1.5-2.2 [facility] Comment on above: Order Comment: Comme nts: Add onto previous labs if possible Performed By: #### L 500.4050, L500.4100, L100.0500, L501.9520 #### [facility] [address] [place], [place], [id number] RESPIRATORY PANEL MOLECULARo n 02-20-2025 RP PANEL [...] Not Detected RSV B Not Detected Normal [facility] Comment on above: Performed By: #### L 500.4050, L500.4100, L100.0500, L501.9520 #### [facility] [address] [place], [place], [id number] Respiratory pathogens DNA an d RNA panel RENETTA+probe (Resp)Ordered By: Claudia Valerio on 02-20-2025 Respiratory Panel (PCR) [facility] Respiratory pathogens detect ion panel by molecular detection methodOrdered By: Claudia Valerio on 02-20-2025 Respiratory pathogens DNA and RNA panel RENETTA+probe (Resp) [facility] Screening total cholesterol/ high density lipoprotein (HDL) cholesterol ratioOrdered By: Kym Norton on 02-20-2025 Cholesterol.total/Cho lesterol in HDL [Mass ratio] 2.63 {ratio} [facility] Serum globulin measurementOr dered By: Kym Norton on 02-20-2025 Globulin (S) [Mass/Vol] 3.2 g/dL 2.2-4.2 [facility] Serum or plasma alanine lindsey otransferase (ALT) measurementOrdered By: Kym Norton on 02-20-2025 ALT [Catalytic activity/Vol] 42 U/L High <35 [facility] Serum or plasma albumin tad urement (mass/volume)Ordered By: Kym Norton on 02-20-2025 Albumin [Mass/Vol] 3.8 g/dL 3.4-4.8 [facility] Serum or plasma albumin/glob ulin mass ratioOrdered By: Kym Norton on 02-20-2025 Albumin/Globulin [Mass ratio] 1.2 {ratio} 0.9-2.4 [facility] Serum or plasma alkaline zita sphatase measurementOrdered By: Kym Norton on 02-20-2025 ALP [Catalytic activity/Vol] 72 U/L 35-104 [facility] Serum or plasma cholesterol in HDL measurement (mass/volume)Ordered By: Kym Norton on 02-20-2025 Cholesterol in HDL [Mass/Vol] 70 mg/dL >40 [facility] Comment on above: National Cholesterol Education Program (NCEP) guidelines:<40 mg/dL: Low HDL-cholesterol (major risk factor for CHD)>= 60 mg/dL: High HDL-cholesterol (negative risk factor for CHD)HDL-cholesterol is affected by a number of factors, e.g. smoking, exercise, hormones, sex and age. Serum or plasma cholesterol measurement (mass/volume)Ordered By: Kym Norton on 02-20-2025 Cholesterol [Mass/Vol] 183 mg/dL <201 [facility] Comment on above: Cholesterol level, D esirable <200 mg/dLBorderline high cholesterol 200-239 mg/dLHigh cholesterol >=240 mg/dLRecommendations of the NCEP Adult Treatment Panel for the following risk-cutoff thresholds for the [place] population. TSH DL <= 0.005 mIU/L QnOrde red By: Kym Norton on 02-20-2025 Thyroid Stimulating Hormone (TSH) 0.626 uIU/mL 0.300-4.20 0 [facility] TSH Qn 0.626 uIU/mL 0.300-4.20 0 [facility] Thyroid Stim Hormone (TSH)on 02-20-2025 TSH 0.626 uIU/mL Normal 0.300-4.20 0 [facility] Comment on above: Performed By: #### L 500.4050, L500.4100, L100.0500, L501.9520 #### [facility] [address] [place], [place], [id number] Total proteinOrdered By: Marychuy Norton on 02-20-2025 Protein [Mass/Vol] 7.0 g/dL 5.9-8.4 [facility] Triglycerides measurementOrd ered By: Kym Norton on 02-20-2025 Triglyceride [Mass/Vol] 61 mg/dL <199 [facility] Comment on above: The drugs N-Acetylcy steine and Metamizole may falsely depress this assay. Normal range: <150 mg/dLBorderline High: 150-199 mg/dLHigh: 200-499 mg/dLVery High: >500 mg/dL Activated partial thrombopla stin time (aPTT) in platelet poor plasma by coagulation aOrdered By: Linwood Ivy on 02-19-2025 aPTT Coag (PPP) [Time] 27.1 s 24.1-36.2 [facility] Bilirubin Test strip Ql (U)O rdered By: Linwood Ivy on 02-19-2025 Bilirubin Ql (U) Negative Negative [facility] Blood cultureOrdered By: Melissa Ivy on 02-19-2025 Bacteria identified Cx Nom (Bld) No growth in 5 days. [facility] Bacteria identified Cx Nom (Bld) No growth in 5 days. [facility] CBC W/Diff, Automatedon 01-27 Absolute Lymph 0.84 X10 3/uL Normal 0.83-4.51 [facility] Comment on above: Performed By: #### L 300.3900, L100.0100, L500.4050, L300.4310, L503.6005, M200.1000 #### [facility] [address] [place], [address] Absolute Neut 6.9 X10 3/uL Normal 2.0-7.7 [facility] Comment on above: Performed By: #### L 300.3900, L100.0100, L500.4050, L300.4310, L503.6005, M200.1000 #### [facility] [address] [place], [address] Basophils/100 WBC (Bld) 0.5 % Normal 0-1 [facility] Comment on above: Performed By: #### L 300.3900, L100.0100, L500.4050, L300.4310, L503.6005, M200.1000 #### [facility] [address] [place], [address] Eosinophils/100 WBC (Bld) 1.0 % Normal 0-5 [facility] Comment on above: Performed By: #### L 300.3900, L100.0100, L500.4050, L300.4310, L503.6005, M200.1000 #### [facility] [address] [place], [address] Erythrocyte distribution width (RBC) [Ratio] 14.6 % Normal 11.6-14.6 [facility] Comment on above: Performed By: #### L 300.3900, L100.0100, L500.4050, L300.4310, L503.6005, M200.1000 #### [facility] [address] [place], [address] Hematocrit (Bld) [Volume fraction] 41.2 % Normal 37-47 [facility] Comment on above: Performed By: #### L 300.3900, L100.0100, L500.4050, L300.4310, L503.6005, M200.1000 #### [facility] [address] [place], [address] Hemoglobin (Bld) [Mass/Vol] 13.0 g/dL Normal 12.0-15.0 [facility] Comment on above: Performed By: #### L 300.3900, L100.0100, L500.4050, L300.4310, L503.6005, M200.1000 #### [facility] [address] [place], [address] IG% 0.200 Normal 0.0-0.9 [facility] Comment on above: Result Comment: IG% - Immature Granulocytes (promyelocytes, myelocytes and metamyelocytes) > 1% indicates that a LEFT SHIFT is Present. Performed By: #### L 300.3900, L100.0100, L500.4050, L300.4310, L503.6005, M200.1000 #### [facility] [address] [place], [address] Lymphocytes/100 WBC (Bld) 9.8 % Low 19-41 [facility] Comment on above: Performed By: #### L 300.3900, L100.0100, L500.4050, L300.4310, L503.6005, M200.1000 #### [facility] [address] [place], [address] MCH (RBC) [Entitic mass] 31.3 pg Normal 27.0-32.0 [facility] Comment on above: Performed By: #### L 300.3900, L100.0100, L500.4050, L300.4310, L503.6005, M200.1000 #### [facility] [address] [place], [address] MCHC (RBC) [Mass/Vol] 31.6 g/dL Low 32-36 [facility] Comment on above: Performed By: #### L 300.3900, L100.0100, L500.4050, L300.4310, L503.6005, M200.1000 #### [facility] [address] [place], [address] MCV (RBC) [Entitic vol] 99.0 fL Normal 81-99 [facility] Comment on above: Performed By: #### L 300.3900, L100.0100, L500.4050, L300.4310, L503.6005, M200.1000 #### [facility] [address] [place], [address] Monocytes/100 WBC (Bld) 8.5 % Normal 0-10 [facility] Comment on above: Performed By: #### L 300.3900, L100.0100, L500.4050, L300.4310, L503.6005, M200.1000 #### [facility] [address] [place], [address] Neutrophils/100 WBC (Bld) 80.0 % High 47-70 [facility] Comment on above: Performed By: #### L 300.3900, L100.0100, L500.4050, L300.4310, L503.6005, M200.1000 #### [facility] [address] [place], [address] Nucleated RBC (Bld) [#/Vol] 0 10*3/uL Normal 0-5 [facility] Comment on above: Performed By: #### L 300.3900, L100.0100, L500.4050, L300.4310, L503.6005, M200.1000 #### [facility] [address] [place], [address] Platelet mean volume (Bld) [Entitic vol] 10.4 fL Normal 6.2-12.0 [facility] Comment on above: Performed By: #### L 300.3900, L100.0100, L500.4050, L300.4310, L503.6005, M200.1000 #### [facility] [address] [place], [address] Platelets (Bld) [#/Vol] 231 10*3/uL Normal 150-450 [facility] Comment on above: Performed By: #### L 300.3900, L100.0100, L500.4050, L300.4310, L503.6005, M200.1000 #### [facility] [address] [place], [address] RBC (Bld) [#/Vol] 4.16 10*6/uL Low 4.2-5.4 [facility] Comment on above: Performed By: #### L 300.3900, L100.0100, L500.4050, L300.4310, L503.6005, M200.1000 #### [facility] [address] [place], [address] RDW SD 53.2 fl High 35.1-43.9 [facility] Comment on above: Performed By: #### L 300.3900, L100.0100, L500.4050, L300.4310, L503.6005, M200.1000 #### [facility] [address] [place], [address] WBC (Bld) [#/Vol] 8.6 10*3/uL Normal 4.4-11.0 [facility] Comment on above: Performed By: #### L 300.3900, L100.0100, L500.4050, L300.4310, L503.6005, M200.1000 #### [facility] [address] [place], [address] Chest PA and Lateralon 02-19 Chest PA and Lateral [facility] Imaging Services [address] [place] [address] Chest PA and Lateral MR#: [id number] Acct: [id number] Name: RAJENDRA LUCERO Rep #: [id number] : 1955 F 69 From: Dane Mccabe MD PCP: Dr. Phuc Martines DO Status: [facility] ER Study: Chest PA and Lateral Date of Exam: 02/19/25 Exam# [id number] Ordering Dr: Linwood Ivy DO PROCEDURE: CHEST [...] changes. Reading Location: [place] CC: Dr. Phuc Martines, DO; Dr. Linwood Ivy, DO Valuation Consultant: Signed Normal [facility] Comprehensive Metabolic Prof ilon 02-19-2025 Albumin [Mass/Vol] 4.0 g/dL Normal 3.4-4.8 [facility] Comment on above: Performed By: #### L 300.3900, L100.0100, L500.4050, L300.4310, L503.6005, M200.1000 ####[facility] [address] [place], [address] Albumin/Globulin [Mass ratio] 1.2 {ratio} Normal 0.9-2.4 [facility] Comment on above: Performed By: #### L 300.3900, L100.0100, L500.4050, L300.4310, L503.6005, M200.1000 ####[facility] [address] [place], [address] ALK PHOS 80 U/L Normal 35-104 [facility] Comment on above: Performed By: #### L 300.3900, L100.0100, L500.4050, L300.4310, L503.6005, M200.1000 ####[facility] [address] [place], [address] ALT [Catalytic activity/Vol] 45 U/L High <=34 [facility] Comment on above: Performed By: #### L 300.3900, L100.0100, L500.4050, L300.4310, L503.6005, M200.1000 ####[facility] [address] [place], [address] AST [Catalytic activity/Vol] 29 U/L Normal <=31 [facility] Comment on above: Performed By: #### L 300.3900, L100.0100, L500.4050, L300.4310, L503.6005, M200.1000 ####[facility] [address] [place], [address] Bilirubin [Mass/Vol] 0.69 mg/dL Normal 0.00-1.30 [facility] Comment on above: Performed By: #### L 300.3900, L100.0100, L500.4050, L300.4310, L503.6005, M200.1000 ####[facility] [address] [place], [address] BUN/CRE 27.9 RATIO High 10-20 [facility] Comment on above: Performed By: #### L 300.3900, L100.0100, L500.4050, L300.4310, L503.6005, M200.1000 ####[facility] [address] [place], [address] Calcium [Mass/Vol] 9.4 mg/dL Normal 7.6-11.0 [facility] Comment on above: Performed By: #### L 300.3900, L100.0100, L500.4050, L300.4310, L503.6005, M200.1000 ####[facility] [address] [place], [address] Chloride [Moles/Vol] 96 mmol/L Low 98-108 [facility] Comment on above: Performed By: #### L 300.3900, L100.0100, L500.4050, L300.4310, L503.6005, M200.1000 ####[facility] [address] [place], [address] CO2 [Moles/Vol] 34.4 mmol/L High 21.0-32.0 [facility] Comment on above: Performed By: #### L 300.3900, L100.0100, L500.4050, L300.4310, L503.6005, M200.1000 ####[facility] [address] [place], [address] Creatinine [Mass/Vol] 0.55 mg/dL Low 0.70-1.20 [facility] Comment on above: Performed By: #### L 300.3900, L100.0100, L500.4050, L300.4310, L503.6005, M200.1000 ####[facility] [address] [place], [address] ECRCL 87.97 ml/min Normal 50-250 [facility] Comment on above: Performed By: #### L 300.3900, L100.0100, L500.4050, L300.4310, L503.6005, M200.1000 ####[facility] [address] [place], [address] GAP 11 Normal 5-15 [facility] Comment on above: Performed By: #### L 300.3900, L100.0100, L500.4050, L300.4310, L503.6005, M200.1000 ####[facility] [address] [place], [address] GFR/1.73 sq M.predicted among non-blacks MDRD (S/P/Bld) [Vol rate/Area] 100 mL/min/{1.73_m2} Normal >60 [facility] Comment on above: Result Comment: mL/m in/1.73m2 CKD-EPI Creatinine Equation (2020) Performed By: #### L 300.3900, L100.0100, L500.4050, L300.4310, L503.6005, M200.1000 ####[facility] [address] [place], [address] Globulin (S) [Mass/Vol] 3.3 g/dL Normal 2.2-4.2 [facility] Comment on above: Performed By: #### L 300.3900, L100.0100, L500.4050, L300.4310, L503.6005, M200.1000 ####[facility] [address] [place], [address] Glucose [Mass/Vol] 116 mg/dL High 70-99 [facility] Comment on above: Performed By: #### L 300.3900, L100.0100, L500.4050, L300.4310, L503.6005, M200.1000 ####[facility] [address] [place], [address] Potassium [Moles/Vol] 3.6 mmol/L Normal 3.3-5.1 [facility] Comment on above: Performed By: #### L 300.3900, L100.0100, L500.4050, L300.4310, L503.6005, M200.1000 ####[facility] [address] [place], [address] Sodium [Moles/Vol] 142 mmol/L Normal 133-145 [facility] Comment on above: Performed By: #### L 300.3900, L100.0100, L500.4050, L300.4310, L503.6005, M200.1000 ####[facility] [address] [place], [address] T PROT 7.2 g/dL Normal 5.9-8.4 [facility] Comment on above: Performed By: #### L 300.3900, L100.0100, L500.4050, L300.4310, L503.6005, M200.1000 ####[facility] [address] [place], [address] Urea nitrogen [Mass/Vol] 15 mg/dL Normal 4-19 [facility] Comment on above: Performed By: #### L 300.3900, L100.0100, L500.4050, L300.4310, L503.6005, M200.1000 ####[facility] [address] [place], [address] Echo Complete W/ Contraston 02-19-2025 Echo Complete W/ Contrast [facility] [address] [place] [address] Echo Complete W/ Contrast 02/20/25 1104 MR#: [id number] Acct: [id number] Name: RAJENDRA LUCERO Rep #: [id number] : 1955 69 From: Mercy Purvis MD [...] Dictated: 02/20/25 1104 Date Transcribed: 02/20/25 1156 Valuation Consultant: Signed Normal [facility] Emergency Department Summary on 02-19-2025 Emergency Department Summary [facility] Medical Records Department [address] [place] [address] Emergency Department Summary 02/19/25 MR#: [id number] Acct: [id number] Name: RAJENDRA LUCERO Rep #: [id number] : 1955 69 From: Linwood Ivy DO PCP: Dr. Phuc Martines DO Status:ADM IN Location: [place] [address] Linwood Ivy DO on [...] not coughing up significant mount of phlegm. [facility] Medical History COPD (chronic obstructive pulmonary disease) [...] PRN dry 0 02/19/25 Unknown History aerosol (Cimarron Saline) nasal passages triamcinolone acetonide 0.5 % [...] follow commands and that she was at [facility] year is 2024 Skin: Warm, dry, intact no rashes or lesions noted Const Vital Signs: 02/19/25 12:52 02/19/25 13:11 02/19/25 13:13 Temperature 99.2 F H Temperature Source Oral Pulse Rate 116 H Respiratory Rate 20 H Respiratory Effort Short of Breath Respiratory Pattern Blood Pressure 120/106 H (more content not included)... Normal [facility] Epithelial cells.squamous LM Ql (Urine sed)Ordered By: Linwood Ivy on 02-19-2025 Epithelial cells.squamous LM.HPF (Urine sed) [#/Area] 0 /[HPF] 5-10 [facility] Glucose Ql (U)Ordered By: Fernandez Ivy on 02-19-2025 Urine Glucose (UA) Normal mg/dl Normal [facility] H AND P Exam - [place] 02-19-2025 H&P Exam - Hospitalist [facility] Medical Records Department [address] [place] [address] H P Exam - Hospitalist 02/19/25 1548 MR#: [id number] Acct: [id number] Name: RAJENDRA LUCERO Rep #: [id number] : 1955 69 From: Kym Norton MD PCP: Dr. Phuc Martines, DO Status:ADM IN Location: [facility] [id number] HPI - General General Date of Admission: 02/19/25 Date of Service: 02/19/25 Chief Complaint: Increase shortness of breath and lower extremity swelling HPI Narrative RAJENDRA LUCERO, is a 69-year-old female with a history of COPD on 3 L nasal cannula and hypertension who presented to [facility] ED 02/19/2025 with increased shortness [...] not note any history of withdrawal symptoms. [facility] Medical History COPD (chronic obstructive pulmonary [...] PRN dry 0 02/19/25 Unknown History aerosol (Cimarron Saline) nasal passages triamcinolone acetonide 0.5 % [...] any numbness/tingling (more content not included)... Normal [facility] Influenza virus A and B and SARS-CoV-2 (COVID-19) and Respiratory syncytial virus RNAOrdered By: Linwood Ivy on 02-19-2025 SARS-CoV-2 (COVID-19) RNA RENETTA+probe Ql (Unsp spec) [facility] International normalized rat io (INR) calculationOrdered By: Linwood Ivy on 02-19-2025 INR Coag (Bld) [Relative time] 1.0 {INR} [facility] Ketones Test strip Ql (U)Ord ered By: Linwood Ivy on 02-19-2025 Ketones Ql (U) Negative Negative [facility] L499.0042on 02-19-2025 Trop T High Sen < 6 Normal <=14 [facility] Comment on above: Performed By: #### L 500.4050, L500.4100, L100.0500, L501.9520 #### [facility] [address] [facility] [address] L499.0043on 02-19-2025 Trop T High Sen < 6 Normal <=14 [facility] Comment on above: Performed By: #### L 300.3900, L100.0100, L500.4050, L300.4310, L503.6005, M200.1000 #### [facility] [address] [place], [address] L501.4021on 02-19-2025 Trop T High Sen < 6 Normal <=14 [facility] Comment on above: Performed By: #### L 500.4050, L500.4100, L100.0500, L501.9520 #### [facility] [address] [place], [address] L503.7505on 02-19-2025 Natriuretic peptide B (Bld) [Mass/Vol] 529 pg/mL Normal <=900 [facility] Comment on above: Result Comment: Hear t Failure Unlikely: < 300 pg/mL Heart Failure Likely < 50 Years: > 450 pg/mL 50-75 Years: > 900 pg/mL >75 Years: > 1800 pg/mL Performed By: #### L 500.4050, L500.4100, L100.0500, L501.9520 #### [facility] [address] [place], [address] Lactic Acidon 02-19-2025 Lactate [Moles/Vol] 1.5 mmol/L Normal 0.0-2.0 [facility] Comment on above: Order Comment: Y Performed By: #### L 300.3900, L100.0100, L500.4050, L300.4310, L503.6005, M200.1000 ####[facility] [address] [place], [address] Lactic acid measurementOrder ed By: Linwood Ivy on 02-19-2025 Lactate [Moles/Vol] 1.5 mmol/L 0.0-2.0 [facility] M100.678on 02-19-2025 M100.678 Pending SARS-CoV-2 (COVID 19) Negative INFLUENZA A Negative INFLUENZA B Negative RSV PCR Negative Normal [facility] Comment on above: Performed By: #### L 500.4050, L500.4100, L100.0500, L501.9520 #### [facility] [address] [place], [place], [address] Microscopic analysis of urin e for red blood cells (RBC)Ordered By: Linwood Ivy on 02-19-2025 Microscopic analysis of urine for red blood cells (RBC) 0 SEEN /hpf 0-5 [facility] Urine RBC 0 SEEN /hpf 0-5 [facility] Mucus LM Ql (Urine sed)Order ed By: Linwood Ivy on 02-19-2025 Mucus Ql (Urine sed) 0 SEEN /hpf [facility] Natriuretic peptide.B prohor gonzalo N-Terminal [Mass/Vol]Ordered By: Linwood Ivy on 02-19-2025 Natriuretic peptide B (Bld) [Mass/Vol] 529 pg/mL <900 [facility] Comment on above: Heart Failure Unlike ly: < 300 pg/mLHeart Failure Likely< 50 Years: > 450 pg/mL50-75 Years: > 900 pg/mL>75 Years: > 1800 pg/mL Natriuretic peptide.B prohor gonzalo N-Terminal [Mass/volume] in Serum or PlasmaOrdered By: Linwood Ivy on 02-19-2025 Natriuretic peptide.B prohormone N-Terminal [Mass/Vol] 529 pg/mL <900 [facility] Comment on above: Heart Failure Unlike ly: < 300 pg/mLHeart Failure Likely< 50 Years: > 450 pg/mL50-75 Years: > 900 pg/mL>75 Years: > 1800 pg/mL Nitrite Test strip Ql (U)Ord ered By: Linwood Ivy on 02-19-2025 Nitrite Ql (U) Negative Negative [facility] Partial Thromboplast Timeon 02-19-2025 aPTT Coag (Bld) [Time] 27.1 s Normal 24.1-36.2 [facility] Comment on above: Performed By: #### L 300.3900, L100.0100, L500.4050, L300.4310, L503.6005, M200.1000 #### [facility] [address] [place], [place], [address] Protein Test strip Ql (U)Ord ered By: Linwood Ivy on 02-19-2025 Protein Ql (U) Negative Negative [facility] Prothrombin Time w/INRon INR Coag (PPP) [Relative time] 1.0 {INR} Normal [facility] [facility] Comment on above: Performed By: #### L 300.3900, L100.0100, L500.4050, L300.4310, L503.6005, M200.1000 #### [facility] [address] [place], [address] PT Coag (PPP) [Time] 13.4 s Normal 11.7-14.9 [facility] Comment on above: Performed By: #### L 300.3900, L100.0100, L500.4050, L300.4310, L503.6005, M200.1000 #### [facility] [address] [place], [address] Prothrombin timeOrdered By: Linwood Ivy on 02-19-2025 PT Coag (PPP) [Time] 13.4 s 11.7-14.9 [facility] Squamous epithelial cells de tection in urine sediment by light microscopyOrdered By: Linwood Ivy on 02-19-2025 Epithelial cells.squamous LM Ql (Urine sed) 0-5 SEEN /hpf 5-10 [facility] Troponin T.cardiac High sens itivity method [Mass/Vol]Ordered By: Linwood Ivy on 02-19-2025 Troponin T High Sensitivity 4 Hour < 6 ng/L <14 [facility] Troponin T High Sensitivity 2 Hour < 6 ng/L <14 [facility] Troponin T High Sensitivity < 6 ng/L <14 [facility] Troponin T.cardiac [Mass/vol ume] in Serum or Plasma by High sensitivity methodOrdered By: Linwood Ivy on 02-19-2025 Troponin T.cardiac High sensitivity method [Mass/Vol] < 6 ng/L <14 [facility] Troponin T.cardiac High sensitivity method [Mass/Vol] < 6 ng/L <14 [facility] Troponin T.cardiac High sensitivity method [Mass/Vol] < 6 ng/L <14 [facility] Urinalysis, Completeon 02-19 EPI,SQUAMOUS 0-5 SEEN Normal 5-10 [facility] Comment on above: Order Comment: CLEAN CATCH Performed By: #### L 500.4050, L500.4100, L100.0500, L501.9520 #### [facility] [address] [place], [address] WBC 0-5 SEEN Normal 0-5 [facility] Comment on above: Order Comment: CLEAN CATCH Performed By: #### L 500.4050, L500.4100, L100.0500, L501.9520 #### [facility] [address] [place], [address] BACTERIA 0 SEEN Normal None Seen [facility] Comment on above: Order Comment: CLEAN CATCH Performed By: #### L 500.4050, L500.4100, L100.0500, L501.9520 #### [facility] [address] [place], [address] Mucus Ql (Urine sed) [address] [facility] Comment on above: Order Comment: CLEAN CATCH Performed By: #### L 500.4050, L500.4100, L100.0500, L501.9520 #### [facility] [address] [place], [address] RBC 0 SEEN Normal 0-5 [facility] Comment on above: Order Comment: CLEAN CATCH Performed By: #### L 500.4050, L500.4100, L100.0500, L501.9520 #### [facility] [address] [place], [address] Urine blood detectionOrdered By: Linwood Ivy on 02-19-2025 Urine Occult Blood Negative Negative [facility] Urine clarityOrdered By: Melissa Ivy on 02-19-2025 Clarity (U) Clear Clear [facility] Urine color determinationOrd ered By: Linwood Ivy on 02-19-2025 Color (U) Straw Yellow [facility] Urine cultureOrdered By: Melissa Ivy on 02-19-2025 Bacteria identified Cx Nom (U) Mixed Gram Pos & Gram Neg Org Abnormal [facility] Urine glucose detectionOrder ed By: Linwood Ivy on 02-19-2025 Glucose Ql (U) Normal mg/dl Normal [facility] Urine leukocyte esterase det ection by dipstickOrdered By: Linwood Ivy on 02-19-2025 Leukocyte esterase Test strip Ql (U) 25 /ul High Negative [facility] Urine pHOrdered By: Linwood cole on 02-19-2025 pH (U) 6.0 [pH] 5.0 - 8.0 [facility] Urine sediment bacteria coun t by microscopy (number/high power field)Ordered By: Linwood Ivy on 02-19-2025 Bacteria LM.HPF (Urine sed) [#/Area] 0 /[HPF] None Seen [facility] Urine specific gravity measu rementOrdered By: Linwood Ivy on 02-19-2025 Specific gravity (U) [Rel density] 1.010 1.002-1.03 0 [facility] Urine urobilinogen measureme ntOrdered By: Linwood Ivy on 02-19-2025 Urobilinogen Ql (U) Normal mg/dl Normal [facility] Urobilinogen Ql (U)Ordered B y: Linwood Ivy on 02-19-2025 Urine Urobilinogen Normal mg/dl Normal [facility] White blood cell countOrdere d By: Linwood Ivy on 02-19-2025 Urine WBC 0-5 SEEN /hpf 0-5 [facility] White blood cell count 0-5 SEEN /hpf 0-5 [facility] aPTT Coag (PPP) [Time]Ordere d By: Linwood vIy on 02-19-2025 aPTT Coag (Bld) [Time] 27.1 s 24.1-36.2 [facility] CNOVon 01-25-2025 CNOV Office Visit (JUDAHWS ) RAJENDRA LUCERO ([id number]) 1955 F Date Time Provider Department 01/25/25 [...] nodule opacities. . History of Present Illness: Rajenrda Lucero is a 69 year old female [...] activities of daily living. Modified Medical Research [place] Dyspnea Scale (MMRC) On level ground I [...] disease) (HCC) 02/03/2010 Coronary artery disease No CA, CHF. No heart cath. Diverticulosis of colon [...] to 08/29/2022. Prior PFTS: SPIROMETRY BASELINE ONLY ([id number]) - ordered on 03/16/22 No textual results for order. SPIROMETRY BASELINE ONLY ([id number]) - ordered on 03/31/20 [facility] [address] [place] [address] Test Date: (more content not included)... Normal [facility] CT LUNG FOLLOWUP WO IVCONon 01-25-2025 CT LUNG FOLLOWUP WO IVCON * * *Final Report* * * DATE OF EXAM: Jan 25 2025 11:06AM [facility] 0561 - CT LUNG FOLLOWUP WO IVCON / PROCEDURE REASON: Lung nodule, < 6mm, high cancer risk * * * * Physician Interpretation * * * * EXAMINATION: CT LUNG FOLLOWUP WO IVCON CLINICAL HISTORY: Lung nodules Technique: Spiral CT acquisition of the chest from the thoracic inlet to the upper abdomen without contrast. MQ: CTLCS_6 Followup LDCT Patient characteristics: * Ygoc-yz-Hrpwd: 1955; Age at exam: 69 years * Gender: Female * Lung Disease: Asymptomatic (no signs or symptoms of lung disease) * Number of Pack Years: 38 * Current smoker (=0) or Number of Years since Quit: 15 * Ordering provider and NPI: MARICRUZ CAMP [id number] * Interpreting radiologist and NPI: Nicole [id number] Exam acquisition parameters: * Exam Date: 01/25/2025 11:06 AM * Site: [facility] * * CT System Peoplesoft Fscm Developer: Symplified * CT System Model: Sensation * Tube [...] Recommendations: Followup LDCT in 6 months Reference: [employer]. Lung CT Screening Reporting and Data System (Lung-RADS). Available at: http://www.acr.org/Quality-Sa fety/Resources/LungRADS Valuation Consultant: PAT Transcribe Date/Time: Jan 25 2025 11:45A Dictated by : VIDAL PULLIAM MD This examination was interpreted and the report reviewed and electronically signed by: VIDAL PULLIAM MD on Jan 25 2025 11:51AM EST [id number] Normal [facility] CT Lung parenchyma WO contra ston 01-25-2025 IMPRESSION: LungRADS category: 3 LungRADS modifier: None LungRADS 0 reason: n/a Recommendations: Followup LDCT in 6 months Reference: [employer]. Lung CT Screening Reporting and Data System (Lung-RADS). Available at: http://www.acr.org/Quality-Sa fety/Resources/LungRADS Valuation Consultant: PSCJessika Transcribe Date/Time: Jan 25 2025 11:45A Dictated by : VIDAL PULLIAM MD This examination was interpreted and the report reviewed and electronically signed by: VIDAL PULLIAM MD on Jan 25 2025 11:51AM [facility] DIVISION OF RADIOLOGY * * *Final Report* * * DATE OF EXAM: Jan 25 2025 11:06AM [facility] 0561 - CT LUNG FOLLOWUP [facility] / PROCEDURE REASON: Lung nodule, < 6mm, high cancer risk * * * * Physician Interpretation * * * * [facility]: Lung nodules Technique: Spiral CT acquisition of the chest from the thoracic inlet to the upper abdomen without contrast. MQ: CTLCS_6 Followup LDCT Patient characteristics: * Etxm-uv-Vwgor: 1955; Age at exam: 69 years * Gender: Female * Lung Disease: Asymptomatic (no signs or symptoms of lung disease) * Number of Pack Years: 38 * Current smoker (=0) or Number of Years since Quit: 15 * Ordering provider and NPI: MARICRUZ CAMP [id number] * Interpreting radiologist and NPI: Nicole [id number] Exam acquisition parameters: * Exam Date: 01/25/2025 11:06 AM * Site: [facility] * * CT System Peoplesoft Fscm Developer: Siemens * CT System Model: Sensation [...] opacities likely atelectasis. DIVISION OF RADIOLOGY Provider, [facility] - 01/25/2025 * * *Final Report* * * DATE OF EXAM: Jan 25 2025 11:06AM [facility] 0561 [facility] / PROCEDURE REASON: Lung nodule, < 6mm, high cancer risk * * * * Physician Interpretation * * * * EXAMINATION: CT LUNG FOLLOWUP WO IVCON CLINICAL HISTORY: Lung nodules Technique: Spiral CT acquisition of the chest from the thoracic inlet to the upper abdomen without contrast. MQ: CTLCS_6 Followup LDCT Patient characteristics: * Lwlu-ke-Moydt: 1955; Age at exam: 69 years * Gender: Female * Lung Disease: Asymptomatic (no signs or symptoms of lung disease) * Number of Pack Years: 38 * Current smoker (=0) or Number of Years since Quit: 15 * Ordering provider and NPI: MARICRUZ CAMP [id number] * Interpreting radiologist and NPI: Nicole [id number] Exam acquisition parameters: * Exam Date: 01/25/2025 11:06 AM * Site: [facility] * * CT System Peoplesoft Fscm Developer: Symplified * CT System Model: Sensation * Tube [...] Recommendations: Followup LDCT in 6 months Reference: [employer]. Lung CT Screening Reporting and Data System (Lung-RADS). Available at: http://www.acr.org/Quality-Sa fety/Resources/LungRADS Valuation Consultant: PSCJessika Transcribe Date/Time: Jan 25 2025 11:45A Dictated by : VIDAL PULLIAM MD This examination was interpreted and the report reviewed and electronically signed by: VIDAL PULLIAM MD on Jan 25 2025 11:51AM EST [facility] Radiology Study observation (narrative) [facility] CT Lung parenchyma WO contra stOrdered By: Ccf Provider on 01-25-[address] [facility] CNOVon 01-20-2025 CNOV Office Visit (FAMPWS ) RAJENDRA LUCERO ([id number]) 1955 F Date Time Provider Department 01/20/25 3:00 PM [facility] MARTINES FAMPWS During your visit today, we recorded the following information about you: Temperature Pulse Respiration Blood pressure 97 degrees 72/minute 20/minute 138/70 Weight 119.7 kg Phuc Martines DO 01/20/2025 8:54 PM Signed Rajendra Lucero is a 69 year old female [...] L, DO 01/20/2025 8:54 PM Signed CC: Rajendra Lucero is a 69 year old female who presents to the office for follow up HPI: HTN, recently controlled, no further dizziness. No chest pain/pressure. Has chronic dyspnea. No new edema or SINHA's or syncope symptoms. 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 Feels she is coping okay. Has support from her children COPD oxygen dependent, stage 3., seeing [employer]- recently had jaziel increased and feels this is helping her PAST MEDICAL HISTORY Diagnosis Date Chronic hypoxemic respiratory failure (HCC) COPD (chronic obstructive pulmonary disease) (HCC) 02/03/2010 Coronary artery disease No CA, CHF. No heart cath. Diverticulosis of colon [...] hours as needed for wheezing/shortness of breath. yjdqiiylhvq-fvuvqdnbo-ucypvjn r (TRELEGY ELLIPTA) 200-62.5-25 mcg inhalation powder [...] kit, including (more content not included)... Normal [facility] Folate SerPl-mCncon 01-21-20 25 Folate [Mass/Vol] 18.5 ng/mL Normal >4.7 [facility] Comment on above: Order Comment: Speci men Type: BLOOD SPECIMENOrdering Facility: [facility] Address: [address] [place] [address] Performed By: #### 2 132-9, 2284-8 ####[facility] LABIA [id number] [place] [address] [place] Iron and Iron binding capaci panelon 01-20-2025 Iron [Mass/Vol] 92 ug/dL Normal 41-186 [facility] Comment on above: Order Comment: Speci men Type: BLOOD SPECIMENOrdering Facility: [facility] Address: [address] [place] [address] Performed By: #### 3 024-7, 3051-0, 96725-0, 3016-3 ####[facility] [id number] [place] [address] [place] Iron binding capacity [Mass/Vol] 403 ug/dL High 232-386 [facility] Comment on above: Order Comment: Speci men Type: BLOOD SPECIMENOrdering Facility: [facility] Address: [address] [place] [address] Performed By: #### 3 024-7, 3051-0, 73628-1, 3016-3 ####[facility] LABIA [id number] [place] [id number] [place] Iron/TIBC [Molar ratio] 22.8 % Normal 15.0-57.0 [facility] Comment on above: Order Comment: Speci men Type: BLOOD SPECIMENOrdering Facility: [facility] Address: [address] [place] [address] Performed By: #### 3 024-7, 3051-0, 47729-5, 6-3 ####[facility] LABCLIA [id number] [place] [address] [place] T3Free SerPl-mCncon 01-21-20 25 Free T3 [Mass/Vol] 2.9 pg/mL Normal 2.3-4.1 [facility] Comment on above: Order Comment: Speci men Type: BLOOD SPECIMENOrdering Facility: [facility] Address: [address] [place] [address] Performed By: #### 3 024-7, 305-0, 16318-5, 6-3 ####[facility] LABCLIA [id number] [place] [address] [place] T4 Free SerPl-mCncon 025 Free T4 [Mass/Vol] 0.9 ng/dL Normal 0.9-1.7 [facility] Comment on above: Order Comment: Speci men Type: BLOOD SPECIMENOrdering Facility: [facility] Address: [address] [place] [address] Performed By: #### 3 024-7, 305-0, 81521-1, 6-3 ####[facility] LABCLIA [id number] [place] [address] [place] TSH SerPl-aCncon 01-20-2025 TSH Qn 2.860 m[IU]/L Normal 0.270-4.20 0 [facility] Comment on above: Order Comment: Speci men Type: BLOOD SPECIMENOrdering Facility: [facility] Address: [address] [place] [address] Performed By: #### 3 024-7, 3051-0, 96158-0, 6-3 ####[facility] LABCLIA [id number] [place] [address] [place] Vit B12 SerPl-mCncon 025 Cobalamin (Vitamin B12) [Mass/Vol] 940 pg/mL Normal 232-1245 [facility] Comment on above: Order Comment: Speci men Type: BLOOD SPECIMENOrdering Facility: [facility] Address: [address] [place] [address] Performed By: #### 2 132-9, 2284-8 ####[facility] LABCLIA [id number] [place] [address] [place] CBC W Auto Differential pane l (Bld)on 01-13-2025 Basophils (Bld) [#/Vol] 0.06 10*3/uL Normal <0.11 [facility] Comment on above: Order Comment: Speci men Type: BLOOD SPECIMENOrdering Facility: [facility] Address: [address] [place] [address] Performed By: #### 5 7021-8 ####[facility] LABCLIA [id number] [place] [address] [place] Basophils/100 WBC (Bld) 0.8 % Normal [facility] Comment on above: Order Comment: Speci men Type: BLOOD SPECIMENOrdering Facility: [facility] Address: [address] [place] [address] Performed By: #### 5 7021-8 ####[facility] LABCLIA [id number] [place] [address] [place] Differential cell count method Nom (Bld) Auto Normal [facility] Comment on above: Order Comment: Speci men Type: BLOOD SPECIMENOrdering Facility: [facility] Address: [address] [place] [address] Performed By: #### 5 7021-8 ####[facility] LABCLIA [id number] [place] [address] [place] Eosinophils (Bld) [#/Vol] 0.20 10*3/uL Normal <0.46 [facility] Comment on above: Order Comment: Speci men Type: BLOOD SPECIMENOrdering Facility: [facility] Address: [address] [place] [address] Performed By: #### 5 7021-8 ####[facility] LABCLIA [id number] [address] [address] [place] Eosinophils/100 WBC (Bld) 2.6 % Normal [facility] Comment on above: Order Comment: Speci men Type: BLOOD SPECIMENOrdering Facility: [facility] Address: [address] [place] [address] Performed By: #### 5 7021-8 ####[facility] LABCLIA [id number] [place] [address] [place] Erythrocyte distribution width (RBC) [Ratio] 14.6 % Normal 11.5-15.0 [facility] Comment on above: Order Comment: Speci men Type: BLOOD SPECIMENOrdering Facility: [facility] Address: [address] [place] [address] Performed By: #### 5 7021-8 ####[facility] LABCLIA [id number] [place] [address] [place] Hematocrit (Bld) [Volume fraction] 46.5 % High 36.0-46.0 [facility] Comment on above: Order Comment: Speci men Type: BLOOD SPECIMENOrdering Facility: [facility] Address: [address] [place] [address] Performed By: #### 5 7021-8 ####[facility] LABCLIA [id number] [address] [address] [place] Hemoglobin (Bld) [Mass/Vol] 14.3 g/dL Normal 11.5-15.5 [facility] Comment on above: Order Comment: Speci men Type: BLOOD SPECIMENOrdering Facility: [facility] Address: [address] [place] [address] Performed By: #### 5 7021-8 ####[facility] LABCLIA [id number] [address] [place] [address] [place] Immature granulocytes (Bld) [#/Vol] 10*3/uL Normal <0.10 [facility] Comment on above: Order Comment: Speci men Type: BLOOD SPECIMENOrdering Facility: [facility] Address: [address] [place] [address] Performed By: #### 5 7021-8 ####[facility] LABCLIA [id number] [address], [facility] [place] Immature granulocytes/100 WBC (Bld) 0.1 % Normal [facility] Comment on above: Order Comment: Speci men Type: BLOOD SPECIMENOrdering Facility: [facility] Address: [address] [place] [address] Performed By: #### 5 7021-8 ####[facility] LABCLIA [id number] [address], [place] [address] [place] Lymphocytes (Bld) [#/Vol] 1.28 10*3/uL Normal 1.00-4.00 [facility] Comment on above: Order Comment: Speci men Type: BLOOD SPECIMENOrdering Facility: [facility] Address: [address] [place] [address] Performed By: #### 5 7021-8 ####[facility] LABCLIA [id number] [place] [address] [place] Lymphocytes/100 WBC (Bld) 16.9 % Normal [facility] Comment on above: Order Comment: Speci men Type: BLOOD SPECIMENOrdering Facility: [facility] Address: [address] [place] [address] Performed By: #### 5 7021-8 ####[facility] LABCLIA [id number] [address] [place] [address] [place] MCH (RBC) [Entitic mass] 30.6 pg Normal 26.0-34.0 [facility] Comment on above: Order Comment: Speci men Type: BLOOD SPECIMENOrdering Facility: [facility] Address: [address] [place] [address] Performed By: #### 5 7021-8 ####[facility] LABCLIA [id number] [place] [address] [place] MCHC (RBC) [Mass/Vol] 30.8 g/dL Normal 30.5-36.0 [facility] Comment on above: Order Comment: Speci men Type: BLOOD SPECIMENOrdering Facility: [facility] Address: [address] [place] [address] Performed By: #### 5 7021-8 ####[facility] LABIA [id number] [place] [address] [place] MCV (RBC) [Entitic vol] 99.4 fL Normal 80.0-100.0 [facility] Comment on above: Order Comment: Speci men Type: BLOOD SPECIMENOrdering Facility: [facility] Address: [address] [place] [address] Performed By: #### 5 7021-8 ####[facility] LABIA [id number] [place] [address] [place] Monocytes (Bld) [#/Vol] 0.75 10*3/uL Normal <0.87 [facility] Comment on above: Order Comment: Speci men Type: BLOOD SPECIMENOrdering Facility: [facility] Address: [address] [place] [address] Performed By: #### 5 7021-8 ####[facility] LABIA [id number] [place] [address] [place] Monocytes/100 WBC (Bld) 9.9 % Normal [facility] Comment on above: Order Comment: Speci men Type: BLOOD SPECIMENOrdering Facility: [facility] Address: [address] [place] [address] Performed By: #### 5 7021-8 ####[facility] LABCLIA [id number] [address] [address] [place] Neutrophils (Bld) [#/Vol] 5.27 10*3/uL Normal 1.45-7.50 [facility] Comment on above: Order Comment: Speci men Type: BLOOD SPECIMENOrdering Facility: [facility] Address: [address] [place] [address] Performed By: #### 5 7021-8 ####[facility] LABCLIA [id number] [address], [place] [address] [place] Neutrophils/100 WBC (Bld) 69.7 % Normal [facility] Comment on above: Order Comment: Speci men Type: BLOOD SPECIMENOrdering Facility: [facility] Address: [address] [place] [address] Performed By: #### 5 7021-8 ####[facility] LABCLIA [id number] [place] [address] [place] Nucleated RBC (Bld) [#/Vol] 10*3/uL Normal <0.01 [facility] Comment on above: Order Comment: Speci men Type: BLOOD SPECIMENOrdering Facility: [facility] Address: [address] [place] [address] Performed By: #### 5 7021-8 ####[facility] LABCLIA [id number] [place] [address] [place] Nucleated RBC/100 WBC (Bld) [Ratio] 0.0 /100 WBC Normal [facility] Comment on above: Order Comment: Speci men Type: BLOOD SPECIMENOrdering Facility: [facility] Address: [address] [place] [address] Performed By: #### 5 7021-8 ####[facility] LABCLIA [id number] [address], [facility]95 [place] Platelet mean volume (Bld) [Entitic vol] 11.6 fL Normal 9.0-12.7 [facility] Comment on above: Order Comment: Speci men Type: BLOOD SPECIMENOrdering Facility: [facility] Address: [address] [place] [address] Performed By: #### 5 7021-8 ####[facility] LABCLIA [id number] [address] [address] [place] Platelets (Bld) [#/Vol] 266 10*3/uL Normal 150-400 [facility] Comment on above: Order Comment: Speci men Type: BLOOD SPECIMENOrdering Facility: [facility] Address: [address] [place] [address] Performed By: #### 5 7021-8 ####[facility] LABCLIA [id number] [address] [place] [address] [place] RBC (Bld) [#/Vol] 4.68 10*6/uL Normal 3.90-5.20 [facility] Comment on above: Order Comment: Speci men Type: BLOOD SPECIMENOrdering Facility: [facility] Address: [address] [place] [address] Performed By: #### 5 7021-8 ####[facility] LABCLIA [id number] [address] [place] [address] [place] [place] WBC (Bld) [#/Vol] 7.57 10*3/uL Normal 3.70-11.00 [facility] Comment on above: Order Comment: Speci men Type: BLOOD SPECIMENOrdering Facility: [facility] Address: [address] [place] [address] Performed By: #### 5 7021-8 ####[facility] LABCLIA [id number] [address] [place] [address] [place] Comprehensive metabolic 2000 panelon 01-13-2025 Albumin [Mass/Vol] 4.6 g/dL Normal 3.9-4.9 [facility] Comment on above: Order Comment: Speci men Type: BLOOD SPECIMENOrdering Facility: [facility] Address: [address] [place] [address] Performed By: #### 2 4331-1, 63785-3 ####[facility] LABCLIA [id number] [address] [address] [place] ALP [Catalytic activity/Vol] 77 U/L Normal 34-123 [facility] Comment on above: Order Comment: Speci men Type: BLOOD SPECIMENOrdering Facility: [facility] Address: [address] [place], [place] [address] Performed By: #### 2 4331-1, 95759-8 ####[facility] LABCLIA [id number] [place] [address] [place] ALT [Catalytic activity/Vol] 27 U/L Normal 7-38 [facility] Comment on above: Order Comment: Speci men Type: BLOOD SPECIMENOrdering Facility: [facility] Address: [address] [place], [place] [address] Performed By: #### 2 4331-1, 68229-3 ####[facility] LABCLIA [id number] [place] [address] [place] Anion gap [Moles/Vol] 12 mmol/L Normal 8-15 [facility] Comment on above: Order Comment: Speci men Type: BLOOD SPECIMENOrdering Facility: [facility] Address: [address] [place], [place] [address] Performed By: #### 2 4331-1, 91300-1 ####[facility] LABCLIA [id number] [address] [address] [place] AST [Catalytic activity/Vol] 24 U/L Normal 13-35 [facility] Comment on above: Order Comment: Speci men Type: BLOOD SPECIMENOrdering Facility: [facility] Address: [address] [place], [place] [address] Performed By: #### 2 4331-1, 85191-8 ####[facility] LABCLIA [id number] [address] [address] [place] Bilirubin [Mass/Vol] 0.6 mg/dL Normal 0.2-1.3 [facility] Comment on above: Order Comment: Speci men Type: BLOOD SPECIMENOrdering Facility: [facility] Address: [address] [place], [place] [address] Performed By: #### 2 4331-1, ####[facility] LABCLIA [id number] [place] [address] [place] Calcium [Mass/Vol] 10.0 mg/dL Normal 8.5-10.2 [facility] Comment on above: Order Comment: Speci men Type: BLOOD SPECIMENOrdering Facility: [facility] Address: [address] [place] [address] Performed By: #### 2 4331-1, ####[facility] LABCLIA [id number] [place] [address] [place] Chloride [Moles/Vol] 94 mmol/L Low 98-107 [facility] Comment on above: Order Comment: Speci men Type: BLOOD SPECIMENOrdering Facility: [facility] Address: [address] [place], [place] [address] Performed By: #### 2 4331-1, ####[facility] LABCLIA [id number] [place] [address] [place] CO2 [Moles/Vol] 37 mmol/L High 22-30 [facility] Comment on above: Order Comment: Speci men Type: BLOOD SPECIMENOrdering Facility: [facility] Address: [address] [place], [place] [address] Performed By: #### 2 4331-1, ####[facility] LABCLIA [id number] [place] [address] [place] Creatinine [Mass/Vol] 0.56 mg/dL Low 0.58-0.96 [facility] Comment on above: Order Comment: Xiao cook Type: BLOOD SPECIMENOrdering Facility: [facility] Address: [address] [place] [address] Performed By: #### 2 4331-1, 69964-1 ####[facility] LABCLIA [id number] [place] [address] [place] Creatinine and Glomerular filtration rate.predicted panel (S/P/Bld) 100 mL/min/1.73m??? Normal >=60 [facility] Comment on above: Order Comment: Xiao cook Type: BLOOD SPECIMENOrdering Facility: [facility] Address: [address] [place] [address] Result Comment: Marcia mated Glomerular Filtration Rate [...] actual GFR. Performed By: #### 2 4331-1, 65977-4 ####[facility] LABCLIA [id number] [place] [address] [place] Glucose [Mass/Vol] 112 mg/dL High 74-99 [facility] Comment on above: Order Comment: Xiao cook Type: BLOOD SPECIMENOrdering Facility: [facility] Address: [address] [place] [address] Result Comment: The [place] Diabetes Association (ADA) provides guidance for cutoff [...] Standards of Medical Care in Diabetes 2016, [place] [employer]. Diabetes Care. 2016.39(Suppl 1). Performed By: #### 2 4331-1, ####[facility] LABCLIA [id number] [address] [address] [place] Potassium [Moles/Vol] 4.3 mmol/L Normal 3.7-5.1 [facility] Comment on above: Order Comment: Speci men Type: BLOOD SPECIMENOrdering Facility: [facility] Address: [address] [place], [place] [address] Performed By: #### 2 4331-, ####[facility] LABCLIA [id number] [address] [address] [place] Protein [Mass/Vol] 7.7 g/dL Normal 6.3-8.0 [facility] Comment on above: Order Comment: Speci men Type: BLOOD SPECIMENOrdering Facility: [facility] Address: [address] [place] [address] Performed By: #### 2 433-, ####[facility] LABIA [id number] [address] [address] [place] Sodium [Moles/Vol] 143 mmol/L Normal 136-144 [facility] Comment on above: Order Comment: Speci men Type: BLOOD SPECIMENOrdering Facility: [facility] Address: [address] [place] [address] Performed By: #### 2 4331-, ####[facility] LABCLIA [id number] [address] [address] [place] Urea nitrogen [Mass/Vol] 12 mg/dL Normal 7-21 [facility] Comment on above: Order Comment: Speci men Type: BLOOD SPECIMENOrdering Facility: [facility] Address: [address] [place] [address] Performed By: #### 2 4331-1, 58312-8 ####[facility] LABCLIA [id number] [address] [place] HbA1c (Bld)on 01-13-2025 Average glucose Estimated from glycated hemoglobin (Bld) [Mass/Vol] 114 mg/dL Normal [facility] Comment on above: Order Comment: Xiao cook Type: BLOOD SPECIMENOrdering Facility: [facility] Address: [address] [place] [address] Result Comment: eAG: (Estimated average glucose) is a calculated value from HgbA1c and is telesales representative of the average blood glucose level in the last 2-3 month period. Performed By: #### 5 5454-3 ####[facility] LABIA [id number] [address] HbA1c (Bld) [Mass fraction] 5.6 % Normal 4.3-5.6 [facility] Comment on above: Order Comment: Xiao cook Type: BLOOD SPECIMENOrdering Facility: [facility] Address: [address] [place] [address] Result Comment: [place] Diabetes Association guidelines indicate that patients with HgbA1c in the range 5.7-6.4% are at increased risk for development of diabetes, and intervention by lifestyle modification may be beneficial. HgbA1c greater or equal to 6.5% is considered diagnostic of diabetes. Performed By: #### 5 5454-3 ####[facility] LABIA [id number] [place] [id number] [facility] [place] Lipid 1996 panelon 5 Cholesterol [Mass/Vol] 233 mg/dL High <200 [facility] Comment on above: Order Comment: Xiao cook Type: BLOOD SPECIMENOrdering Facility: [facility] Address: [address] [place] [address] Result Comment: <200 mg/dL, Desirable 200-239 mg/dL, Borderline high >239 mg/dL, High Performed By: #### 2 4331-1, 92893-3 ####[facility] LABCLIA [id number] [address] [address] [place] Cholesterol in HDL [Mass/Vol] 91 mg/dL Normal >39 [facility] Comment on above: Order Comment: Saniyai men Type: BLOOD SPECIMENOrdering Facility: [facility] Address: [address] [place] [address] Result Comment: 40-5 9 mg/dL, Acceptable >59 mg/dL, High: Negative risk factor for coronary heart disease <40 mg/dL, Low: Positive risk factor for coronary heart disease Performed By: #### 2 4331-1, 40324-1 ####[facility] LABCLIA [id number] [place] [address] [place] [facility] Cholesterol in LDL [Mass/Vol] 128 mg/dL High <100 [facility] Comment on above: Order Comment: Speci men Type: BLOOD SPECIMENOrdering Facility: [facility] Address: [address] [place] [address] Result Comment: <100 mg/dL, Optimal 100-129 mg/dL, Near optimal/above optimal 130-159 mg/dL, Borderline high 160-189 mg/dL, High >189 mg/dL, Very high Secondary prevention optimal LDL Cholesterol levels are recommended to be < 70 mg/dL Performed By: #### 2 4331-1, 66188-1 ####[facility] LABIA [id number] [address] [address] [facility] Cholesterol in LDL/Cholesterol in HDL [Mass ratio] 1.41 {ratio} Normal <2.54 [facility] Comment on above: Order Comment: Speci [facility] Type: BLOOD SPECIMENOrdering Facility: [facility] Address: [address] [place] [address] Result Comment: Refe daniellace: 1. National Cholesterol Education Program ATP III Guideline At-A-Glance Quick Desk Reference: National Heart, Lung, and Blood [place]. National Institutes of Health. 2001: NIH Publication No. 01-3305. 2. An International Atherosclerosis Society position paper: global recommendations for the management of dyslipidemia: executive summary, Atherosclerosis. 2014: 232(2):410-413. Performed By: #### 2 4331-1, ####[facility] LABCLIA [id number] [facility] [address] [place] [address] [place] Cholesterol in VLDL [Mass/Vol] 14 mg/dL Normal <30 [facility] Comment on above: Order Comment: Speci men Type: BLOOD SPECIMENOrdering Facility: [facility] Address: [address] [place] [address] Performed By: #### 2 4331-1, ####[facility] LABCLIA [id number] [facility] [address] [place] [address] [place] Cholesterol non HDL [Mass/Vol] 142 mg/dL High <130 [facility] Comment on above: Order Comment: Speci men Type: BLOOD SPECIMENOrdering Facility: [facility] Address: [address] [place] [address] Result Comment: <130 mg/dL, Optimal 130-159 mg/dL, Near optimal/above optimal 160-189 mg/dL, Borderline high 190-219 mg/dL, High >219 mg/dL, Very high Secondary prevention optimal non HDL Cholesterol levels are recommended to be <100 mg/dL Performed By: #### 2 4331-1, ####[facility] LABCLIA [id number] [facility] [address] [place] [address] [place] Cholesterol.total/Cho lesterol in HDL [Mass ratio] 2.56 {ratio} Normal <5.10 [facility] Comment on above: Order Comment: Speci men Type: BLOOD SPECIMENOrdering Facility: [facility] Address: [address] [place], [place] [address] Performed By: #### 2 4331-1, ####[facility] LABCLIA [id number] [facility] [address] [place] [address] [place] FASTING TIME 12 hrs Normal [facility] Comment on above: Order Comment: Speci men Type: BLOOD SPECIMENOrdering Facility: [facility] Address: [address] [place] [address] Performed By: #### 2 4331-1, ####[facility] LABCLIA [id number] [place] [address] [place] Triglyceride [Mass/Vol] 72 mg/dL Normal <150 [facility] Comment on above: Order Comment: Speci men Type: BLOOD SPECIMENOrdering Facility: [facility] Address: [address] [place] [address] Result Comment: <150 mg/dL, Normal 150-199 mg/dL, Borderline high 200-499 mg/dL, High >499 mg/dL, Very high Performed By: #### 2 4331-1, 44916-7 ####[facility] LABCLIA [id number] [address] [place] CNOVon 12-25-2024 CNOV Office Visit (PULMWS ) RAJENDRA LUCERO ([id number]) 1955 F Date Time Provider Department 12/25/24 11:30 AM RAJENDRA GOODMAN PULMWS During your visit today, we recorded the following information about you: Pulse Respiration Blood pressure Weight 92/minute 20/minute 134/64 119.1 kg Rajendra Goodman, 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 No heart cath. Diverticulosis of colon [...] ELLIPTA 100-62.5-25 mcg inhalation powder Generic drug: skecggjeznf-bipavhzpg-colhiho r USE 1 INHALATION DAILY INSTRUCTED triamcinolone [...] prior chest CT examinations is needed. Reference: [place] [employer]. Lung CT Screening Reporting and Data System (Lung-RADS). Available at: http://www.acr.org/Quality-Sa fety/Resources/LungRADS Valuation Consultant: PAT Transcribe Date/Time: Oct 19 2024 11:21A Dictated by : VIDAL PULLIAM MD This examination was interpreted and the report reviewed and electronically signed by: VIDAL PULLIAM MD on Oct 19 2024 11:28AM EST Results-Findings * * *Final Report* * * DATE OF EXAM: Oct 19 2024 10:09AM [facility] 0562 - CT LUNG SCREEN WO IVCON / PROCEDURE REASON: Former cigarette smoker * * * * Physician Interpretation * * * * EXAMINATION: CHEST CT WITHOUT CONTRAST (LOW-DOSE CT LUNG CANCER SCREENING MICHAEL (more content not included)... Normal [facility] DBT Breast - bilateral kristian lewis 12-03-2024 IMPRESSION: There is no mammographic evidence [...] Manish Quintana M.D. Electronically signed on: 12/03/2024 Valuation Consultant: SHAMEKA Transcribe Date/Time: Dec 03 2024 11:01A Dictated by: MANISH QUINTANA MD This examination was interpreted and the report reviewed and electronically signed by: MANISH QUINTANA MD on Dec 03 2024 6:47PM [facility] DIVISION OF RADIOLOGY * * *Final Report* * * DATE OF EXAM: Dec 03 2024 11:38AM [facility] [place] 0582 - [facility] SCREENING W ASHLEY / PROCEDURE REASON: Encounter for screening mammogram for breast cancer * * * * Physician Interpretation * * * * RESULT: [place] [address] #[id number] - [facility] SCREENING W ASHLEY HISTORY: 69 year-old patient [...] in either breast. DIVISION OF RADIOLOGY Provider, Shannon Arteaga - 12/03/2024 * * *Final Report* * * DATE OF EXAM: Dec 03 2024 11:38AM [facility] 0582 - [facility] SCREENING W ASHLEY / PROCEDURE REASON: Encounter for screening mammogram for breast cancer * * * * Physician Interpretation * * * * RESULT: [facility] [address] [place] [address] #[id number] - [facility] SCREENING W ASHLEY HISTORY: 69 year-old patient [...] Manish Quintana M.D. Electronically signed on: 12/03/2024 Valuation Consultant: SHAMEKA Transcrighazal Date/Time: Dec 03 2024 11:01A Dictated by: MANISH QUINTANA MD This examination was interpreted and the report reviewed and electronically signed by: MANISH QUINTANA MD on Dec 03 2024 6:47PM EST [facility] Radiology Study observation (narrative) [facility] DBT Breast - bilateral scree ningOrdered By: Ccf Provider on 12-03-[address] [facility] ANUSHA SCREENING W TOMOon 12-03 ANUSHA SCREENING W ASHLEY * * *Final Report* * * DATE OF EXAM: Dec 03 2024 11:38AM [facility] 0582 - [facility] SCREENING W ASHLEY / PROCEDURE REASON: Encounter for screening mammogram for breast cancer * * * * Physician Interpretation * * * * RESULT: [place] [address] [place] [address] #[id number] - [facility] SCREENING W ASHLEY HISTORY: 69 [...] Manish Quintana M.D. Electronically signed on: 12/03/2024 Valuation Consultant: SHAMEKA Transcribe Date/Time: Dec 03 2024 11:01A Dictated by: MANISH QUINTANA MD This examination was interpreted and the report reviewed and electronically signed by: MANISH QUINTANA MD on Dec 03 2024 6:47PM EST [id number] Normal [facility] CNOVon 10-19-2024 CNOV Office Visit (PULMWS ) RAJENDRA LUCERO ([id number]) 1955 F Date Time Provider Department 10/19/24 [...] here for annual follow-up. Impression / Recommendations Rajendra Lucero presents for annual lung cancer screening [...] further evaluation discussed in detail with patient. Rajendra Lucero expressed understanding and is in agreement [...] which included preparing to see the patient, vnxt-be-entx patient care, completing clinical documentation, performing a medically appropriate examination, counseling and educating the patient/family/caregiver, ordering medications, tests, or procedures, communicating with other HCPs (not separately reported), independently interpreting results (not separately reported), communicating results to the patient/family/caregiver, and care coordination (not separately reported). Maricruz Camp APRN.[facility] October 19, 2024 10:28 AM History of Present Illness: Rajendra Lucero is a 69 year old female [...] albuterol if feeling sick. Modified Medical Research [place] Dyspnea Scale (MMRC) I am too breathless [...] Medical Hi (more content not included)... Normal [facility] CT Chest for screening WO co ntraston 10-19-2024 IMPRESSION: LungRADS category: 0 LungRADS modifier: None LungRADS 0 reason: n/a Recommendations: Additional lung cancer screening CT images and/or comparison to prior chest CT examinations is needed. Reference: [place] [employer]. Lung CT Screening Reporting and Data System (Lung-RADS). Available at: http://www.acr.org/Quality-Sa fety/Resources/LungRADS Valuation Consultant: PAT Transcribe Date/Time: Oct 19 2024 11:21A Dictated by : VIDAL PULLIAM MD This examination was interpreted and the report reviewed and electronically signed by: VIDAL PULLIAM MD on Oct 19 2024 11:28AM [facility] DIVISION OF RADIOLOGY * * *Final Report* * * DATE OF EXAM: Oct 19 2024 10:09AM [facility] 0562 - CT LUNG SCREEN [facility] / PROCEDURE REASON: Former cigarette smoker [...] without contrast. MQ: CTLCS_6 Patient characteristics: * Oqny-vc-Xwrfr: 1955; Age at exam: 69 years * Gender: Female * Lung Disease: Asymptomatic (no signs or symptoms of lung disease) * Number of Pack Years: 38 * Current smoker (=0) or Number of Years since Quit: 15 * Ordering provider and NPI: MARICRUZ CAMP [id number] * Interpreting radiologist and NPI: Nicole [id number] Exam acquisition parameters: * Exam Date: 10/19/2024 10:09 AM * Site: [facility] * * CT System Peoplesoft Fscm Developer: Symplified * CT System Model: Sensation * Tube [...] [* [email or web address].pettit-nhlbi.org/ca lcium/input.aspx] DIVISION OF RADIOLOGY Provider, [facility] - 10/19/2024 * * *Final Report* * * DATE OF EXAM: Oct 19 2024 10:09AM [facility] 0562 - CT LUNG SCREEN WO [...] without contrast. MQ: CTLCS_6 Patient characteristics: * Qabs-ll-Awtfw: 1955; Age at exam: 69 years * Gender: Female * Lung Disease: Asymptomatic (no signs or symptoms of lung disease) * Number of Pack Years: 38 * Current smoker (=0) or Number of Years since Quit: 15 * Ordering provider and NPI: MARICRUZ CAMP [id number] * Interpreting radiologist and NPI: Nicole [id number] Exam acquisition parameters: * Exam Date: 10/19/2024 10:09 AM * Site: [facility] * * CT System Peoplesoft Fscm Developer: Siemens * CT System Model: Sensation [...] prior chest CT examinations is needed. Reference: [employer]. Lung CT Screening Reporting and Data System (Lung-RADS). Available at: http://www.acr.org/Quality-Sa fety/Resources/LungRADS Valuation Consultant: PAT Transcribe Date/Time: Oct 19 2024 11:21A Dictated by : VIDAL PULLIAM MD This examination was interpreted and the report reviewed and electronically signed by: VIDAL PULLIAM MD on Oct 19 2024 11:28AM EST [facility] Radiology Study observation (narrative) [facility] CT Chest for screening WO co ntrastOrdered By: Ccf Provider on 10-19-[address] [facility] CT LUNG SCREEN WO IVCONon CT LUNG SCREEN WO IVCON * * *Final Report* * * DATE OF EXAM: Oct 19 2024 10:09AM [facility] 0562 - CT LUNG SCREEN WO [...] without contrast. MQ: CTLCS_6 Patient characteristics: * Uyjv-kj-Exjmf: 1955; Age at exam: 69 years * Gender: Female * Lung Disease: Asymptomatic (no signs or symptoms of lung disease) * Number of Pack Years: 38 * Current smoker (=0) or Number of Years since Quit: 15 * Ordering provider and NPI: MARICRUZ CAMP [id number] * Interpreting radiologist and NPI: Nicole [id number] Exam acquisition parameters: * Exam Date: 10/19/2024 10:09 AM * Site: [facility] * * CT System Peoplesoft Fscm Developer: Symplified * CT System Model: Sensation * Tube [...] prior chest CT examinations is needed. Reference: [employer]. Lung CT Screening Reporting and Data System (Lung-RADS). Available at: http://www.acr.org/Quality-Sa fety/Resources/LungRADS Valuation Consultant: PAT Transcribe Date/Time: Oct 19 2024 11:21A Dictated by : VIDAL PULLIAM MD This examination was interpreted and the report reviewed and electronically signed by: VIDAL PULLIAM MD on Oct 19 2024 11:28AM EST [id number] Normal [facility] CNOVon 06-26-2024 CNOV Office Visit (PULMWS ) RAJENDRA LUCERO ([id number]) 1955 F Date Time Provider Department 06/26/24 11:45 AM TRESSA GONZALEZ PULMWS During your visit today, we recorded the following information about you: Pulse Respiration Blood pressure Weight 80/minute 15/minute 136/78 115.2 kg Tressa Gonzalez MD 06/26/2024 2:11 PM Signed . Respiratory [place] Note Patient name: Rajendra Lucero PCP: Phuc Martines DO CC: Follow-up COPD HPI: Rajendra Lucero 68 year old female former 45-htjn-xtym smoker, quitting in 2008 with PMH significant [...] DATE OF EXAM: Oct 08 2023 1:24PM [facility] 0562 - CT LUNG SCREEN WO [...] (HCC) 02/03/2010: COPD (chronic obstructive pulmonary disease) ([facility]) No date: Coronary artery disease Comment: No CA, CHF. No heart cath. No date: Diverticulosis [...] Take 1 tablet by mouth once daily. yggkkexjoli-ffoyrjgxs-iuudjqp r (TRELEGY ELLIPTA) 100-62.5-25 mcg inhalation powder [...] COMPOUNDED PRESC (more content not included)... Normal [facility] ANUSHA SCREENINGon 09-17-[address] [facility] CBC W Auto Differential pane l (Bld)on 08-14-2023 Basophils (Bld) [#/Vol] 0.06 10*3/uL <0.11 k/uL [facility] Basophils/100 WBC (Bld) 0.8 % [facility] Differential cell count method Nom (Bld) Auto [facility] Eosinophils (Bld) [#/Vol] 0.17 10*3/uL <0.46 k/uL [facility] Eosinophils/100 WBC (Bld) 2.3 % [facility] Erythrocyte distribution width (RBC) [Ratio] 14.0 % 11.5 - 15.0 % [facility] Hematocrit (Bld) [Volume fraction] 45.6 % 36.0 - 46.0 % [facility] Hemoglobin (Bld) [Mass/Vol] 14.5 g/dL 11.5 - 15.5 g/dL [facility] Immature granulocytes (Bld) [#/Vol] 0.04 10*3/uL <0.10 k/uL [facility] Immature granulocytes/100 WBC (Bld) 0.5 % [facility] Lymphocytes (Bld) [#/Vol] 1.10 10*3/uL 1.00 - 4.00 k/uL [facility] Lymphocytes/100 WBC (Bld) 14.8 % [facility] MCH (RBC) [Entitic mass] 31.6 pg 26.0 - 34.[address] [facility] MCHC (RBC) [Mass/Vol] 31.8 g/dL 30.5 - 36.0 g/dL [facility] MCV (RBC) [Entitic vol] 99.3 fL 80.0 - 100.[address] [facility] Monocytes (Bld) [#/Vol] 0.61 10*3/uL <0.87 k/uL [facility] Monocytes/100 WBC (Bld) 8.2 % [facility] Neutrophils (Bld) [#/Vol] 5.45 10*3/uL 1.45 - 7.50 k/uL [facility] Neutrophils/100 WBC (Bld) 73.4 % [facility] Nucleated RBC (Bld) [#/Vol] <0.01 k/uL [facility] Nucleated RBC/100 WBC (Bld) [Ratio] 0.0 /[address] [facility] Platelet mean volume (Bld) [Entitic vol] 11.7 fL 9.0 - 12.[address] [facility] Platelets (Bld) [#/Vol] 222 10*3/uL 150 - 400 k/uL [facility] RBC (Bld) [#/Vol] 4.59 10*6/uL 3.90 - 5.20 m/uL [facility] WBC (Bld) [#/Vol] 7.43 10*3/uL 3.70 - 11.00 k/uL [facility] OXIMETRY WITH AMBULATIONon 0 06-13-[address] [facility] US ABD SPLEENon 03-06-[address] [facility] No Panel Informationon 10-[address] [facility] XR Chest PA and Lateralon IMPRESSION: Overall findings unchanged. Valuation Consultant: PAT Transcribe Date/Time: Oct 01 2022 5:09P Dictated by : MORAIMA CARDENAS MD This examination was interpreted and the report reviewed and electronically signed by: MORAIMA CARDENAS MD on Oct 01 2022 5:10PM [facility] DIVISION OF RADIOLOGY * * *Final Report* [...] soft tissues: Unremarkable. DIVISION OF RADIOLOGY Provider, [facility] - 10/01/2022 * * *Final Report* * [...] tissues: Unremarkable. IMPRESSION IMPRESSION: Overall findings unchanged. Valuation Consultant: PSCB Transcribe Date/Time: Oct 01 2022 5:09P Dictated by : MORAIMA CARDENAS MD This examination was interpreted and the report reviewed and electronically signed by: MORAIMA CARDENAS MD on Oct 01 2022 5:10PM EST [facility] XR Chest PA and LateralOrder ed By: Ccf Provider on 10-01-[address] [facility] XR Chest PA and Lateralon Radiology Study observation (narrative) [facility] ANUSHA SCREENINGon 09-11-[address] [facility] US ABD SPLEENon 09-03-[address] [facility] CT CHEST WO IVCONon 08-30-20 Radiology Result ACTIONABLE Abnormal [facility] OXIMETRY WITH AMBULATIONon 0 03-16-[address] [facility] XR Foot - right AP and Later al and obliqueon 01-10-2021 IMPRESSION: Mild deg enerative changes Valuation Consultant: PAT Transcribe Date/Time: Jan 10 2021 11:21A Dictated by : ROXANNE MARTEL MD This examination was interpreted and the report reviewed and electronically signed by: ROXANNE MARTEL MD on Jan 10 2021 11:23AM [facility] DIVISION OF RADIOLOGY * * *Final Report* [...] No fracture. DIVISION OF RADIOLOGY Provider, [facility] - 01/10/2021 * * *Final Report* * [...] No fracture. IMPRESSION IMPRESSION: Mild degenerative changes Valuation Consultant: PAT Transcribe Date/Time: Jan 10 2021 11:21A Dictated by : ROXANNE MARTEL MD This examination was interpreted and the report reviewed and electronically signed by: ROXANNE MARTEL MD on Jan 10 2021 11:23AM EST [facility] Radiology Study observation (narrative) [facility] XR Foot - right AP and Later al and obliqueOrdered By: Ccf Provider on 01-10-[address] [facility] ANES Regina 09-10-2018 ANES POST HNO ID: [id number] thor: Cornelio DangSerchinae: AnesthesiologyAuthor Type: AnesthesiologistType: Anesthesia [...] NoneOther Remarks:SIGNATURE: Cornelio Dang MD PATIENT NAME: Rajendra WardATE: September 10, 2018 : 1:54 PM PAGER/CONTACT #: [id number] [facility] PREOPon 09-10-2018 ANES PREOP HNO ID: [id number] thor: Ann-Marie Radhaervice: AnesthesiologyAuthor Type: AnesthesiologistType: Anesthesia PreOpFiled: 09/10/2018 11:07 [...] FLANKIrritable Bowel SyndromeCopd (Chronic Obstructive Pulmonary Disease) ([facility])HypoxemiaFormer SmokerObstructive Sleep ApneaWell Adult ExamChronic Obstructive Pulmonary Disease ([facility])Obesity, Class III, BMI >= 40 (morbid obesity) E66.01Oxygen DependentAcute Bronchitis With Chronic Obstructive Pulmonary Disease (Copd) ([facility])Impaired Fasting GlucoseScreening for Colon CancerPAST MEDICAL HISTORYDiagnosis Date- COPD (chronic obstructive pulmonary disease) ([facility]) 02/03/2010- Coronary artery disease No CA, CHF. No heart cath.- Diverticulosis of colon (without mention of hemorrhage)- Essential hypertension, benign- Fibrocystic breast- Former smoker- Internal hemorrhoids without mention of complication- Leiomyoma of uterus, unspecified- Obstructive sleep apnea Mild. Not prescribed CPAP, only 2L nasal O2.PAST SURGICAL HISTORYProcedure Laterality Date- BREAST LUMPECTOMY HX Right 1997- COLONOSCOP W/ OR W/O [facility] SPEC 08/27/08 repeat due 2018- IMPACT TOOTH REMOV COMP BONY WISDOM TEETH- [...] to Encounter:Lactobacillus acidophilus (PROBIOTIC ORAL) Take by mouth.pqcpxpkljfo-qadieuxsa-i ilanter (TRELEGY ELLIPTA) 100-62.5-25 mcg dsdvInhale 1 [...] otherwise documented in primary service progress [facility]: [facility] information obtained within 48 hours ofSurgery/Procedure.SIGNATURE : Ann-Marie Tejada MD PATIENT NAME: Rajendra OnofreAliceATE: September 10, 2018 : 11:06 AM CSN: [id number] [facility] HISTORY PHYSICALon 8 HISTORY PHYSICAL HNO ID: [id number] thor: Margot YorkanService: General SurgeryAuthor Type: PhysicianType: HANDPFiled: 09/10/2018 10:34 AMNote Text:?HISTORY AND PHYSICAL?Rajendra Onofres111/01/1954?REFERRING PHYSICIAN: Phuc Martines, DO?CHIEF COMPLAINT: Consult (Consult Colonoscopy)?HPI: The patient is a 62 year old female referred for endoscopy.Rajendra notes no history of colon complaints. She [...] Thepatient notes no history of upper GI complaints.?Rajendra has undergone prior endoscopy, [address] [...] (HCC) 02/03/2010- Coronary artery disease ?? No CA, CHF. No heart cath.- Diverticulosis of colon (without mention of hemorrhage) ?- Essential hypertension, benign ?- Fibrocystic breast ?- Former smoker ?- Internal hemorrhoids without mention of complication ?- Leiomyoma of uterus, unspecified ?- Obstructive sleep apnea ?? Mild. Not prescribed CPAP, only 2L nasal O2.??PAST SURGICAL HISTORYPAST SURGICAL HISTORYProcedure Laterality Date- BREAST LUMPECTOMY HX Right 1997- COLONOSCOP W/ OR W/O [facility] SPEC ? 08/27/08? repeat due 2017- IMPACT TOOTH REMOV COMP BONY ? ?? WISDOM TEETH- INGUINAL HERNIA REPAIR HX ? 1975? bilateral- PAST SURGICAL HISTORY OF ? ?? hemangioma left cheek???CURRENT MEDICATIONS?Current Outpatient Prescriptions:Lactobacillus acidophilus (PROBIOTIC ORAL) Take by mouth.mrnkvhfwpsp-vkikpphbs-p ilanter (TRELEGY ELLIPTA) 100-62.5-25 mcg dsdvInhale 1 [...] notes Sx?pelvic floor prolapse, recommend evaluation by LITHOSTRIPPER-patient states hasappt in September. COPD, on oxygen [...] me 1 weekpost operatively.? Basia Ely PA-C [facility] NURSING PROGon 09-10-2018 Protein mass conc HNO ID: [id number] Author: Kajal WhitfieldRn) WAI Rodney Service: Nursing Author Type: Registered Nurse Type: Nursing Progress Note Filed: 09/10/2018 1:11 PM Note Text: 1245 pt to PACU. TRIANA TCx4. Denies pain. PIV DANDI. VSS no s/sx of distress. [facility] PT EDon 09-10-2018 PT ED HNO ID: [id number] thor: Sola WhitfieldRn) LAITH Velazquezervice: (none)Author Type: [...] MATERIAL: NoneREFERRAL (RECOMMENDATION): NoneElectronically Signed By: Sola Velazquez RN, BSN In Department[facility] PT ED HNO ID: [id number] thor: Roni WhitfieldRn) LAITH Baileyervice: NursingAuthor Type: Registered NurseType: Patient EducationFiled: 09/10/2018 11:05 AMNote Text:PRE OP LEARNING ASSESSMENTPROCEDURE/SURGERY: GI PROCEDURES: ColonoscopyREADINESS TO LEARNCOGNITIVE ABILITY: Alert and orientedMOTIVATION TO LEARN: InterestedFAMILY SUPPORT: High - Very involved in pt carePATIENT LEARNS BEST BY: Verbal InstructionFACTORS AFFECTING LEARNING: NonePHYSICAL LIMITATIONS AFFECTING LEARNING: NoneElectronically Signed By: Roni Bailey RN [facility] NURSING PROGon 09-09-2018 Protein mass conc HNO ID: [id number] thor: Sherrell (Wai) LAITH Waterservice: NursingAuthor Type: Registered NurseType: Nursing [...] Check:Hieu Waters RNNovember 2017 9:58 AM Normal [facility] HISTORY PHYSICALon 8 HISTORY PHYSICAL HNO ID: [id number] thor: Dante Goncalves Pa-C: (none)Author Type: Physician AssistantType: HANDPFiled: 09/05/2018 9:59 AMNote Text:HISTORY AND PHYSICAL EXAMINATIONSERVICE DATE: 09/05/2018SERVICE TIME: 9:20 AMPRIKINGMAN [facility]AL [facility] CENTERY CARE PHYSICIAN: TRAVIS Falk FOR VISIT:Rajendra Lucero is a 63 year old female who is scheduled for PACC atthe request of Dr. Margot Galvan for consultation. My finalrecommendation will be communicated back to the requesting physician byway of shared medical record or letter.The patient has the following:ACTIVE PROBLEM LISTLeiomyoma of Uterus, UnspecifiedOBESITYEssential HypertensionPAIN FLANKIrritable Bowel SyndromeCopd (Chronic Obstructive Pulmonary Disease) ([facility])HypoxemiaFormer SmokerObstructive Sleep ApneaWell Adult ExamChronic Obstructive Pulmonary Disease ([facility])Obesity, Class III, BMI >= 40 (morbid obesity) E66.01Oxygen DependentAcute Bronchitis With Chronic Obstructive Pulmonary Disease (Copd) ([facility])Impaired Fasting GlucoseScreening for Colon CancerSubjectiveCHIEF COMPLAINT: Routine colonoscopyHPI: Rajendra is a 63 year old female, her last colonoscopy was aboutten years ago which was normal. She has c/o intermittent constipation andepisodes of vaginal pressure with the constipation. She denies nausea,vomiting, diarrhea, or abdominal pain.Patient is scheduled for colonoscopy by Dr. Galvan on 09/10/2018.PAST MEDICAL HISTORYDiagnosis Date- COPD (chronic obstructive pulmonary disease) ([facility]) 02/03/2010- Coronary artery disease No CA, CHF. No heart cath.- Diverticulosis of colon (without mention of hemorrhage)- Essential hypertension, benign- Fibrocystic breast- Former smoker- Internal hemorrhoids without mention of complication- Leiomyoma of uterus, unspecified- Obstructive sleep apnea Mild. 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 Taking Cejlaqcyzbttbl-pxjdcnvxc-aopi nter (TRELEGY ELLIPTA) 100-62.5-25 mcg dsdvInhale 1 [...] or fevers.Neuro: No history of TIA's, stroke, [employer] tumor, impaired sensorium,hemiplegia, paraplegia or quadraplegia. No [...] requiring dialysis. Negative for dysuria, hematuria,urgency, or frequency.LITHOSTRIPPER: Negative for abnormal vaginal bleeding, abnormal vaginal [...] recent labsMost recent EKGMost recent EchoAll in [facility] has the following medical conditionsHTN- RxCOPD- [...] and compliance.SIGNATURE: Jeanine Mckeon PA-C PATIENT NAME: Rajendra WardATE: September 05, 2018 : 9:32 AM PAGER/CONTACT #: [facility] HOSPon 08-27-2018 HOSP Patient:Linwood Lucero KMRN: Height:5' 4.5(1.638 m)Weight:256 lb 1.6 oz (116.166 kg)Outpatient Medications as of 09/10/18:Lactobacillus acidophilus (PROBIOTIC ORAL)rnfczbxfwif-myaablrne-st lanter (TRELEGY ELLIPTA) 100-62.5-25 mcg dsdvNYAMYC powdertriamterene-hydrochloro [...] the following basenames: K,HCTProgress Notes ([facility]):Deo Dickerson RN 08/30/2018 9:50 AM Mlvgxe81 year old female here for INACTIVATED INFLUENZA VACCINE.0244-4672 SeasonPatient is identified by name and date of : Yes [] CONTRAINDICATIONS color enhancedsectionAge less than 6 months? NoAllergy to eggs, chicken, chicken feathers, or chicken dander? NoAllergy to thimerosal (a preservative) or formaldehyde, gelatin? NoHistory of severe reaction to any vaccine component or a previous dose ofinfluenza vaccination? NoHistory of Guillain-Sharpsburg Syndrome within 6 weeks after a previous [...] information sheet given? YesSee immunization activity in [facility] for details of immunizations adminsteredtoday.Patient age: [age] year old For The 0310-1655 Flu Season6-35 months old: Fluzone 0.25 ml [...] second dosein one months time.Previous VersionProgress Notes ([facility]):Teodoro Bower 08/27/2018 9:33 AM [id number] [facility] unless told otherwise. Dr Galvan, can you please reviewthis patients information . Thank you Teodoro Bower 08/27/2018 2:59 PM Signedleft message for patient to call back so we can schedule her procedure in ahospital setting Teodoro Bower 08/27/2018 3:54 PM [id number] Ky Bower 08/28/2018 1:22 PM [id number] [facility] Vital Signs Date Time Vital Sign Value Performing Clinician Facility 05-13-2025 19:00-0400 Diastolic blood pressure 64 mm[Hg] Dr. Phuc Martines DO Work Phone: 1(910)901-040889 [place] [address] 05-13-2025 19:00-0400 Heart rate 97 /min Dr. Phuc Martines DO Work Phone: 0(006)332-970689 [place] [address] 05-13-2025 19:00-0400 Inhaled oxygen flow rate 10 L/min Dr. Phuc Martines DO Work Phone: 7(559)570-296289 [place] [address] 05-13-2025 19:00-0400 Respiratory rate 19 /min Dr. Phuc Martines DO Work Phone: 4(333)258-244989 [place] [address] 05-13-2025 19:00-0400 SaO2% (BldA) [Mass fraction] 91 % Dr. Phuc Martines DO Work Phone: 8(975)257-836289 [place] [address] 05-13-2025 19:00-0400 Systolic blood pressure 128 mm[Hg] Dr. Phuc Martines DO Work Phone: 6(841)475-283989 [place] [address] 05-13-2025 18:53-0400 Body temperature 98.2 [degF] Dr. Phuc Martines DO Work Phone: 4(102)680-411589 [place] [address] 05-13-2025 16:00-0400 Diastolic blood pressure 62 mm[Hg] Dr. Phuc Martines DO Work Phone: 0(672)218-186389 [place] [address] 05-13-2025 16:00-0400 Heart rate 109 /min Dr. Phuc Martines DO Work Phone: 8(720)418-066889 [place] [address] 05-13-2025 16:00-0400 Respiratory rate 27 /min Dr. Phuc Martines DO Work Phone: 0(744)416-475089 [place] [address] 05-13-2025 16:00-0400 SaO2% (BldA) [Mass fraction] 90 % Dr. Phuc Martines DO Work Phone: 2(194)325-130789 [place] [address] 05-13-2025 16:00-0400 Systolic blood pressure 130 mm[Hg] Dr. Phuc Martines DO Work Phone: [facility] 05-13-2025 13:56-0400 Inhaled oxygen concentration 40 % Dr. Phuc Martines DO Work Phone: [facility] 05-13-2025 13:10-0400 Body height 162.[address] Phuc Martines DO Work Phone: [facility] 05-13-2025 13:10-0400 Body mass index (BMI) [Ratio] 44.8 kg/m2 Dr. Phuc Martines DO Work Phone: [facility] 05-13-2025 13:10-0400 Body temperature 98.7 [degF] Dr. Phuc Martines DO Work Phone: [facility] 05-13-2025 13:10-0400 Body weight 118.[address] Phuc Martines DO Work Phone: [facility] 05-13-2025 13:10-0400 Inhaled oxygen flow rate 3 L/min Dr. Phuc Martines DO Work Phone: [facility] 05-11-2025 14:32-0400 SaO2% (BldA) [Mass fraction] 88 % Sofi LYNN-C Work Phone: [facility] 05-11-2025 11:29-0400 Body mass index (BMI) [Ratio] 44.63 kg/m2 Sofi LYNN-C Work Phone: [facility] 05-11-2025 11:29-0400 Body temperature 99.7 [degF] Sofi Garcia PA-C Work Phone: [facility] 05-11-2025 11:29-0400 Body weight 117.94 kg Sofi Garcia PA-C Work Phone: [facility] 05-11-2025 11:29-0400 Diastolic blood pressure 70 mm[Hg] Sofi Garcia PA-C Work Phone: [facility] 05-11-2025 11:29-0400 Heart rate 76 /min Sofi Garcia PA-C Work Phone: [facility] 05-11-2025 11:29-0400 Respiratory rate 20 /min Sofi LYNN-C Work Phone: [facility] 05-11-2025 11:29-0400 Systolic blood pressure 110 mm[Hg] Sofi LYNN-C Work Phone: [facility] 05-07-2025 13:37-0400 Body height 162.[address] Phuc Martines DO Work Phone: 2(804)351-825426 [place] [address] 05-07-2025 13:37-0400 Body mass index (BMI) [Ratio] 44.4 kg/m2 Dr. Phuc Martines DO Work Phone: 8(504)201-812489 [place] [address] 05-07-2025 13:37-0400 Body weight 117.[address] Phuc Martines DO Work Phone: 9(161)210-820126 [place] [address] 05-07-2025 13:37-0400 Diastolic blood pressure 65 mm[Hg] Dr. Phuc Martines DO Work Phone: 6(158)921-906389 [place] [address] 05-07-2025 13:37-0400 Heart rate 75 /min Dr. Phuc Martines DO Work Phone: 2(123)849-712289 [place] [address] 05-07-2025 13:37-0400 Inhaled oxygen flow rate 2 L/min Dr. Phuc Martines DO Work Phone: 3(129)510-119826 [place] [address] 05-07-2025 13:37-0400 Respiratory rate 20 /min Dr. Phuc Martines DO Work Phone: 7(339)555-172226 [place] [address] 05-07-2025 13:37-0400 SaO2% (BldA) [Mass fraction] 82 % Dr. Phuc Martines DO Work Phone: 4(244)819-653126 [place] [address] 05-07-2025 13:37-0400 Systolic blood pressure 101 mm[Hg] Dr. Phuc Martines DO Work Phone: 6(770)090-515189 [place] [address] 04-27-2025 14:20-0400 Heart rate 90 /min Dr. Phuc Martines DO Work Phone: 7(086)145-902326 [place] [address] 04-27-2025 14:20-0400 Respiratory rate 18 /min Dr. Phuc Martines DO Work Phone: 6(368)232-969589 [place] [address] 04-27-2025 11:43-0400 Body temperature 98.6 [degF] Dr. Phuc Martines DO Work Phone: 8(389)883-741489 [place] [address] 04-27-2025 11:43-0400 Diastolic blood pressure 53 mm[Hg] Dr. Phuc Martines DO Work Phone: 2(569)909-708889 [place] [address] 04-27-2025 11:43-0400 Inhaled oxygen flow rate 5 L/min Dr. Phuc Martines DO Work Phone: 8(123)982-685889 [place] [address] 04-27-2025 11:43-0400 SaO2% (BldA) [Mass fraction] 95 % Dr. Phuc Martines DO Work Phone: 3(276)359-220789 [place] [address] 04-27-2025 11:43-0400 Systolic blood pressure 110 mm[Hg] Dr. Phuc Martines DO Work Phone: 0(280)297-058889 [place] [address] 04-27-2025 04:35-0400 Body mass index (BMI) [Ratio] 44.5 kg/m2 Dr. Phuc Martines DO Work Phone: 7(504)193-857189 [place] [address] 04-27-2025 04:35-0400 Body weight 117.[address] Phuc Martines DO Work Phone: 1(256)321-555089 [place] [address] 04-23-2025 22:47-0400 Body height 162.[address] Phuc Martines DO Work Phone: 0(659)239-330989 [place] [address] 04-23-2025 22:02-0400 Diastolic blood pressure 74 mm[Hg] Dr. Phuc Martines DO Work Phone: 4(853)744-658889 [place] [address] 04-23-2025 22:02-0400 Heart rate 127 /min Dr. Phuc Martines DO Work Phone: 0(484)904-107889 [place] [address] 04-23-2025 22:02-0400 Respiratory rate 24 /min Dr. Phuc Martines DO Work Phone: [facility] 04-23-2025 22:02-0400 SaO2% (BldA) [Mass fraction] 94 % Dr. Phuc Martines DO Work Phone: [facility] 04-23-2025 22:02-0400 Systolic blood pressure 140 mm[Hg] Dr. Phuc Martines DO Work Phone: 4(536)370-238726 [place] [address] 04-23-2025 21:58-0400 Body temperature 98.6 [degF] Dr. Phuc Martines DO Work Phone: 8(259)347-332189 [place] [address] 04-23-2025 21:00-0400 Inhaled oxygen flow rate 3.5 L/min Dr. Phuc Martines DO Work Phone: 7(408)537-479589 [place] [address] 04-23-2025 16:18-0400 Body height 162.[address] Phuc Martines DO Work Phone: 5(606)506-072126 [place] [address] 04-23-2025 16:18-0400 Body mass index (BMI) [Ratio] 43.7 kg/m2 Dr. Phuc Martines DO Work Phone: 7(863)587-285289 [place] [address] 04-23-2025 16:18-0400 Body weight 115.[address] Phuc Martines DO Work Phone: 6(307)688-750926 [place] [address] 04-23-2025 14:59-0400 Body mass index (BMI) [Ratio] 43.98 kg/m2 Tyra Carson APRN.AIRCRAFT ARMORER Work Phone: [facility] 04-23-2025 14:59-0400 Body weight 116.21 kg Tyra Carson APRN.AIRCRAFT ARMORER Work Phone: [facility] 04-23-2025 14:59-0400 Diastolic blood pressure 62 mm[Hg] Tyra Carson APRN.AIRCRAFT ARMORER Work Phone: [facility] 04-23-2025 14:59-0400 Heart rate 129 /min Tyra Carson APRN.AIRCRAFT ARMORER Work Phone: [facility] 04-23-2025 14:59-0400 Respiratory rate 20 /min Tyra Carson APRN.AIRCRAFT ARMORER Work Phone: [facility] 04-23-2025 14:59-0400 SaO2% (BldA) [Mass fraction] 92 % Tyra Carson APRN.AIRCRAFT ARMORER Work Phone: [facility] 04-23-2025 14:59-0400 Systolic blood pressure 122 mm[Hg] Tyra Carson APRN.AIRCRAFT ARMORER Work Phone: [facility] 04-20-2025 09:48-0400 Body mass index (BMI) [Ratio] 44.27 kg/m2 Damon Eugene APRN.AIRCRAFT ARMORER Work Phone: [facility] 04-20-2025 09:48-0400 Body temperature 98.4 [degF] Damon Eugene APRN.AIRCRAFT ARMORER Work Phone: [facility] 04-20-2025 09:48-0400 Body weight 117 kg Damon Eugene APRN.AIRCRAFT ARMORER Work Phone: [facility] 04-20-2025 09:48-0400 Diastolic blood pressure 80 mm[Hg] Damon Eugene APRN.AIRCRAFT ARMORER Work Phone: [facility] 04-20-2025 09:48-0400 Heart rate 94 /min Damon Eugene APRN.AIRCRAFT ARMORER Work Phone: [facility] 04-20-2025 09:48-0400 Respiratory rate 18 /min Damon Eugene APRN.AIRCRAFT ARMORER Work Phone: [facility] 04-20-2025 09:48-0400 SaO2% (BldA) [Mass fraction] 91 % Damon Eugene APRN.AIRCRAFT ARMORER Work Phone: [facility] 04-20-2025 09:48-0400 Systolic blood pressure 132 mm[Hg] Damon Eugene APRN.AIRCRAFT ARMORER Work Phone: [facility] 03-31-2025 12:52-0400 Body mass index (BMI) [Ratio] 45.08 kg/m2 Janette Podlogar MANUFACTURING ENGINEER MACHINING.AIRCRAFT ARMORER Work Phone: [facility] 03-31-2025 12:52-0400 Body weight 119.11 kg Janette Podlogar MANUFACTURING ENGINEER MACHINING.AIRCRAFT ARM[employer]ER Work Phone: [facility] 03-31-2025 12:52-0400 Diastolic blood pressure 82 mm[Hg] Janette Podlogar MANUFACTURING ENGINEER MACHINING.AIRCRAFT ARMORER Work Phone: [facility] 03-31-2025 12:52-0400 Heart rate 91 /min Janette Podlogar MANUFACTURING ENGINEER MACHINING.AIRCRAFT ARMORER Work Phone: [facility] 03-31-2025 12:52-0400 Respiratory rate 18 /min Janette Podlogar MANUFACTURING ENGINEER MACHINING.AIRCRAFT ARMORER Work Phone: [facility] [facility] 03-31-2025 12:52-0400 SaO2% (BldA) [Mass fraction] 92 % Janette Podlogar MANUFACTURING ENGINEER MACHINING.AIRCRAFT ARMORER Work Phone: [facility] Comment on above: 3LPM 03-31-2025 12:52-0400 Systolic blood pressure 124 mm[Hg] Janette Podlogar MANUFACTURING ENGINEER MACHINING.AIRCRAFT ARMORER Work Phone: [facility] 03-30-2025 11:28-0400 Body height 162.[address] Phuc Martines DO Work Phone: [facility] 03-30-2025 11:28-0400 Body mass index (BMI) [Ratio] 45.1 kg/m2 Dr. Phuc Martines DO Work Phone: [facility] 03-30-2025 11:28-0400 Body weight 119.[address] Phuc Martines DO Work Phone: [facility] 03-30-2025 11:28-0400 Diastolic blood pressure 80 mm[Hg] Dr. Phuc Martines DO Work Phone: [facility] 03-30-2025 11:28-0400 Heart rate 69 /min Dr. Phuc Martines DO Work Phone: [facility] 03-30-2025 11:28-0400 Inhaled oxygen flow rate 2 L/min Dr. Phuc Martines DO Work Phone: [facility] 03-30-2025 11:28-0400 Respiratory rate 18 /min Dr. Phuc Martines DO Work Phone: [facility] 03-30-2025 11:28-0400 SaO2% (BldA) [Mass fraction] 86 % Dr. Phuc Martines DO Work Phone: [facility] 03-30-2025 11:28-0400 Systolic blood pressure 122 mm[Hg] Dr. Phuc Martines DO Work Phone: [facility] 03-01-2025 12:31-0400 Body mass index (BMI) [Ratio] 45.01 kg/m2 Janette Podlogar MANUFACTURING ENGINEER MACHINING.AIRCRAFT ARMORER Work Phone: [facility] 03-01-2025 12:31-0400 Body weight 118.93 kg Janette Podlogar MANUFACTURING ENGINEER MACHINING.AIRCRAFT ARMORER Work Phone: [facility] 03-01-2025 12:31-0400 Diastolic blood pressure 70 mm[Hg] Janette Podlogar MANUFACTURING ENGINEER MACHINING.AIRCRAFT ARMORER Work Phone: [facility] 03-01-2025 12:31-0400 Heart rate 76 /min Janette Podlogar MANUFACTURING ENGINEER MACHINING.AIRCRAFT ARMORER Work Phone: [facility] 03-01-2025 12:31-0400 Respiratory rate 18 /min Janette Podlogar MANUFACTURING ENGINEER MACHINING.AIRCRAFT ARMORER Work Phone: [facility] 03-01-2025 12:31-0400 SaO2% (BldA) [Mass fraction] 90 % Janette Podlogar MANUFACTURING ENGINEER MACHINING.AIRCRAFT ARMORER Work Phone: [facility] Comment on above: 3LPM 03-01-2025 12:31-0400 Systolic blood pressure 116 mm[Hg] Janette Podlogar MANUFACTURING ENGINEER MACHINING.AIRCRAFT ARMORER Work Phone: [facility] 02-23-2025 13:26-0400 Body temperature 98.4 [degF] Dr. Phuc Martines DO Work Phone: [facility] 02-23-2025 13:26-0400 Diastolic blood pressure 83 mm[Hg] Dr. Phuc Martines DO Work Phone: [facility] 02-23-2025 13:26-0400 Heart rate 104 /min Dr. Phuc Martines DO Work Phone: 6(296)[phone] [place] [address] 02-23-2025 13:26-0400 Inhaled oxygen flow rate 3.5 L/min Dr. Phuc Martines DO Work Phone: 5(528)[phone] [place] [address] 02-23-2025 13:26-0400 Respiratory rate 18 /min Dr. Phuc Martines DO Work Phone: 4(326)[phone] [place] [address] 02-23-2025 13:26-0400 SaO2% (BldA) [Mass fraction] 97 % Dr. Phuc Martines DO Work Phone: 9(456)233-270226 [place] [address] 02-23-2025 13:26-0400 Systolic blood pressure 110 mm[Hg] Dr. Phuc Martines DO Work Phone: [facility] 02-23-2025 03:57-0400 Body mass index (BMI) [Ratio] 44.6 kg/m2 Dr. Phuc Martines DO Work Phone: [facility] 02-23-2025 03:57-0400 Body weight 117.[address] Phuc Martines DO Work Phone: [facility] 02-22-2025 10:02-0400 Body height 162.[address] Phuc Martines DO Work Phone: [facility] 01-25-2025 11:08-0400 Body height 162.6 cm Maricruz Camp APRN.AIRCRAFT ARMORER Work Phone: [facility] 01-25-2025 11:08-0400 Body mass index (BMI) [Ratio] 45.56 kg/m2 Maricruz Camp APRN.CNP Work Phone: [facility] 01-25-2025 11:08-0400 Body weight 120.39 kg Maricruz Camp MANUFACTURING ENGINEER MACHINING.AIRCRAFT ARMORER Work Phone: [facility] 01-25-2025 11:08-0400 Diastolic blood pressure 76 mm[Hg] Maricruz Camp MANUFACTURING ENGINEER MACHINING.AIRCRAFT ARMORER Work Phone: [facility] 01-25-2025 11:08-0400 Heart rate 88 /min Maricruz Cmap MANUFACTURING ENGINEER MACHINING.AIRCRAFT ARMORER Work Phone: [facility] 01-25-2025 11:08-0400 SaO2% (BldA) [Mass fraction] 92 % Maricruzwei Camp MANUFACTURING ENGINEER MACHINING.AIRCRAFT ARMORER Work Phone: [facility] 01-25-2025 11:08-0400 Systolic blood pressure 131 mm[Hg] Maricruz Camp MANUFACTURING ENGINEER MACHINING.AIRCRAFT ARMORER Work Phone: [facility] 01-20-2025 14:36-0400 Body mass index (BMI) [Ratio] 45.32 kg/m2 Phuc Martines DO Work Phone: [facility] 01-20-2025 14:36-0400 Body temperature 97 [degF] Phuc Martines DO Work Phone: [facility] 01-20-2025 14:36-0400 Body weight 119.75 kg Phuc Martines DO Work Phone: [facility] 01-20-2025 14:36-0400 Diastolic blood pressure 70 mm[Hg] Phuc Martines DO Work Phone: [facility] 01-20-2025 14:36-0400 Heart rate 72 /min Phuc Martines DO Work Phone: [facility] 01-20-2025 14:36-0400 Respiratory rate 20 /min Phuc Martines DO Work Phone: [facility] 01-20-2025 14:36-0400 Systolic blood pressure 138 mm[Hg] Phuc Martines DO Work Phone: [facility] 12-25-2024 11:22-0500 Body mass index (BMI) [Ratio] 45.08 kg/m2 Rajendra Click MANUFACTURING ENGINEER MACHINING.AIRCRAFT ARMORER Work Phone: [facility] 12-25-2024 11:22-0500 Body weight 119.11 kg Rajendra Click MANUFACTURING ENGINEER MACHINING.AIRCRAFT ARMORER Work Phone: [facility] 12-25-2024 11:22-0500 Diastolic blood pressure 64 mm[Hg] Rajendra Click MANUFACTURING ENGINEER MACHINING.AIRCRAFT ARMORER Work Phone: [facility] 12-25-2024 11:22-0500 Heart rate 92 /min Rajendra Click MANUFACTURING ENGINEER MACHINING.AIRCRAFT ARMORER Work Phone: [facility] 12-25-2024 11:22-0500 Respiratory rate 20 /min Rajendra Click MANUFACTURING ENGINEER MACHINING.AIRCRAFT ARMORER Work Phone: [facility] 12-25-2024 11:22-0500 SaO2% (BldA) [Mass fraction] 91 % Rajendra Click MANUFACTURING ENGINEER MACHINING.AIRCRAFT ARMORER Work Phone: [facility] Comment on above: 2 L [place] 12-25-2024 11:22-0500 Systolic blood pressure 134 mm[Hg] Rajendra Click MANUFACTURING ENGINEER MACHINING.AIRCRAFT ARMORER Work Phone: [facility] 10-19-2024 10:15-0500 Body height 162.6 cm Maricruz Sunnyvale MANUFACTURING ENGINEER MACHINING.AIRCRAFT ARMORER Work Phone: [facility] 10-19-2024 10:15-0500 Body mass index (BMI) [Ratio] 44.56 kg/m2 Maricruz [place] MANUFACTURING ENGINEER MACHINING.AIRCRAFT ARMORER Work Phone: [facility] 10-19-2024 10:15-0500 Body weight 117.75 kg Maricruz [place] MANUFACTURING ENGINEER MACHINING.AIRCRAFT ARMORER Work Phone: [facility] 10-19-2024 10:15-0500 Diastolic blood pressure 70 mm[Hg] Maricruz [place] MANUFACTURING ENGINEER MACHINING.AIRCRAFT ARMORER Work Phone: [facility] 10-19-2024 10:15-0500 Heart rate 101 /min Maricruz [place] MANUFACTURING ENGINEER MACHINING.AIRCRAFT ARMORER Work Phone: [facility] 10-19-2024 10:15-0500 SaO2% (BldA) [Mass fraction] 90 % Maricruz Camp APRN.AIRCRAFT ARMORER Work Phone: [facility] Comment on above: 3 L 10-19-2024 10:15-0500 Systolic blood pressure 130 mm[Hg] Maricruz Camp APRN.AIRCRAFT ARMORER Work Phone: [facility] 06-26-2024 11:29-0400 Body mass index (BMI) [Ratio] 43.6 kg/m2 Tressa Gonzalez MD Work Phone: [facility] 06-26-2024 11:29-0400 Body weight 115.21 kg Tressa Gonzalez MD Work Phone: [facility] 06-26-2024 11:29-0400 Diastolic blood pressure 78 mm[Hg] Tressa Gonzalez MD Work Phone: [facility] 06-26-2024 11:29-0400 Heart rate 80 /min Tressa Gonzalez MD Work Phone: [facility] 06-26-2024 11:29-0400 Respiratory rate 15 /min Tressa Gonzalez MD Work Phone: [facility] 06-26-2024 11:29-0400 SaO2% (BldA) [Mass fraction] 91 % Tressa Gonzalez MD Work Phone: [facility] 06-26-2024 11:29-0400 Systolic blood pressure 136 mm[Hg] Tressa Gonzalez MD Work Phone: [facility] 04-26-2024 10:59-0400 Body mass index (BMI) [Ratio] 44.65 kg/m2 Damon Eugene APRN.AIRCRAFT ARMORER Work Phone: [facility] 04-26-2024 10:59-0400 Body temperature 98.6 [degF] Damon Eugene APRN.AIRCRAFT ARMORER Work Phone: [facility] 04-26-2024 10:59-0400 Body weight 118 kg Damon Jas POLLACK.AIRCRAFT ARMORER Work Phone: [facility] 04-26-2024 10:59-0400 Diastolic blood pressure 68 mm[Hg] Damon Eugene APRN.AIRCRAFT ARMORER Work Phone: [facility] 04-26-2024 10:59-0400 Heart rate 68 /min Damonsidra Eugene APRN.AIRCRAFT ARMORER Work Phone: [facility] 04-26-2024 10:59-0400 Respiratory rate 20 /min Damon Eugene JAKI.AIRCRAFT ARMORER Work Phone: [facility] 04-26-2024 10:59-0400 SaO2% (BldA) [Mass fraction] 98 % Damon Eugene APRN.AIRCRAFT ARMORER Work Phone: [facility] 04-26-2024 10:59-0400 Systolic blood pressure 144 mm[Hg] Damon Eugene APRN.AIRCRAFT ARMORER Work Phone: [facility] 03-13-2024 12:59-0400 Body mass index (BMI) [Ratio] 44.29 kg/m2 Phuc Martines DO Work Phone: [facility] 03-13-2024 12:59-0400 Body temperature 97.59 [degF] Phuc Martines DO Work Phone: [facility] 03-13-2024 12:59-0400 Body weight 117.03 kg Phuc Martines DO Work Phone: [facility] 03-13-2024 12:59-0400 Diastolic blood pressure 70 mm[Hg] Phuc Martines DO Work Phone: [facility] 03-13-2024 12:59-0400 Heart rate 102 /min Phuc Martines DO Work Phone: [facility] 03-13-2024 12:59-0400 Respiratory rate 28 /min Phuc Martines DO Work Phone: [facility] 03-13-2024 12:59-0400 SaO2% (BldA) [Mass fraction] 91 % Phuc Martines DO Work Phone: [facility] 03-13-2024 12:59-0400 Systolic blood pressure 158 mm[Hg] Phuc Martines DO Work Phone: [facility] 01-29-2024 13:30-0400 Body temperature 97.9 [degF] Srikanth Sean MANUFACTURING ENGINEER MACHINING.AIRCRAFT ARMORER Work Phone: [facility] 01-29-2024 13:30-0400 Body weight 118.4 kg Srikanth Sean MANUFACTURING ENGINEER MACHINING.AIRCRAFT ARMORER Work Phone: [facility] 01-29-2024 13:30-0400 Diastolic blood pressure 68 mm[Hg] Srikanth Sean MANUFACTURING ENGINEER MACHINING.AIRCRAFT ARMORER Work Phone: [facility] 01-29-2024 13:30-0400 Heart rate 94 /min Srikanth Sean MANUFACTURING ENGINEER MACHINING.AIRCRAFT ARMORER Work Phone: [facility] 01-29-2024 13:30-0400 Respiratory rate 18 /min Srikanth Sean MANUFACTURING ENGINEER MACHINING.AIRCRAFT ARMORER Work Phone: [facility] 01-29-2024 13:30-0400 SaO2% (BldA) [Mass fraction] 93 % Srikanth Sean MANUFACTURING ENGINEER MACHINING.AIRCRAFT ARMORER Work Phone: [facility] 01-29-2024 13:30-0400 Systolic blood pressure 112 mm[Hg] Srikanth Sean MANUFACTURING ENGINEER MACHINING.AIRCRAFT ARMORER Work Phone: [facility] 08-14-2023 10:190400 Body temperature 97 [degF] Phuc Martines DO Work Phone: [facility] 08-14-2023 10:190400 Body weight 120.2 kg Phuc Martines DO Work Phone: [facility] 08-14-2023 10:190400 Diastolic blood pressure 70 mm[Hg] Phuc Martines DO Work Phone: [facility] 08-14-2023 10:190400 Heart rate 88 /min Phuc Martines DO Work Phone: [facility] 08-14-2023 10:19-0400 Respiratory rate 20 /min Phuc Martines DO Work Phone: [facility] 08-14-2023 10:19-0400 Systolic blood pressure 120 mm[Hg] Phuc Martines DO Work Phone: [facility] 06-13-2023 12:58-0400 Body weight 120.66 kg Pulm Wstr Work Phone: [facility] 06-13-2023 12:58-0400 Heart rate 102 /min Pulm Wstr Work Phone: [facility] 06-13-2023 12:58-0400 Respiratory rate 16 /min Pulm Wstr Work Phone: [facility] 06-13-2023 12:58-0400 SaO2% (BldA) [Mass fraction] 94 % Pulm Wstr Work Phone: [facility] 06-13-2023 12:53-0400 Diastolic blood pressure 86 mm[Hg] Hodan Mara PA-C Work Phone: [facility] 06-13-2023 12:53-0400 SaO2% (BldA) [Mass fraction] 80 % Hodan Mara PA-C Work Phone: [facility] 06-13-2023 12:53-0400 Systolic blood pressure 144 mm[Hg] Hodan Mara PA-C Work Phone: [facility] 09-28-2022 12:12-0500 Body temperature 99 [degF] Pratibha Fernando MANUFACTURING ENGINEER MACHINING.AIRCRAFT ARMORER Work Phone: [facility] 09-28-2022 12:12-0500 Body weight 116.3 kg Pratibha Fernando MANUFACTURING ENGINEER MACHINING.AIRCRAFT ARMORER Work Phone: [facility] 09-28-2022 12:12-0500 Diastolic blood pressure 94 mm[Hg] Pratibha Fernando MANUFACTURING ENGINEER MACHINING.AIRCRAFT ARMORER Work Phone: [facility] 09-28-2022 12:12-0500 Heart rate 99 /min Pratibha Fernando MANUFACTURING ENGINEER MACHINING.AIRCRAFT ARMORER Work Phone: [facility] 09-28-2022 12:12-0500 Respiratory rate 20 /min Pratibha King MANUFACTURING ENGINEER MACHINING.AIRCRAFT ARMORER Work Phone: [facility] 09-28-2022 12:12-0500 SaO2% (BldA) [Mass fraction] 94 % Pratibha King MANUFACTURING ENGINEER MACHINING.AIRCRAFT ARMORER Work Phone: [facility] 09-28-2022 12:12-0500 Systolic blood pressure 142 mm[Hg] Pratibha King MANUFACTURING ENGINEER MACHINING.AIRCRAFT ARMORER Work Phone: [facility] 08-01-2022 10:17-0400 Body temperature 98.4 [degF] Phuc Martines DO Work Phone: [facility] 08-01-2022 10:17-0400 Body weight 117.48 kg Phuc Martines DO Work Phone: [facility] 08-01-2022 10:17-0400 Diastolic blood pressure 60 mm[Hg] Phuc Martines DO Work Phone: [facility] 08-01-2022 10:17-0400 Heart rate 88 /min Phuc Martines DO Work Phone: [facility] 08-01-2022 10:17-0400 Respiratory rate 24 /min Phuc Martines DO Work Phone: [facility] 08-01-2022 10:17-0400 SaO2% (BldA) [Mass fraction] 88 % Phuc Martines DO Work Phone: [facility] 08-01-2022 10:17-0400 Systolic blood pressure 136 mm[Hg] Phuc Martines DO Work Phone: [facility] 03-16-2022 09:33-0400 Body height 164.5 cm Respiratory Wstr Work Phone: [facility] 03-16-2022 09:33-0400 Body weight 114.76 kg Respiratory Wstr Work Phone: [facility] 03-16-2022 09:33-0400 Heart rate 93 /min Respiratory Wstr Work Phone: [facility] 03-16-2022 09:33-0400 Respiratory rate 12 /min Respiratory Wstr Work Phone: [facility] 03-16-2022 09:33-0400 SaO2% (BldA) [Mass fraction] 94 % Respiratory Wstr Work Phone: [facility] 03-16-2022 09:31-0400 Body weight 114.76 kg Hodan Mara PA-C Work Phone: [facility] 03-16-2022 09:31-0400 Diastolic blood pressure 86 mm[Hg] Hodan Mara PA-C Work Phone: [facility] 03-16-2022 09:31-0400 Heart rate 93 /min Hodan Mara PA-C Work Phone: [facility] 03-16-2022 09:31-0400 Respiratory rate 12 /min Hodan Mara PA-C Work Phone: [facility] 03-16-2022 09:31-0400 SaO2% (BldA) [Mass fraction] 96 % Hodan Mara PA-C Work Phone: [facility] 03-16-2022 09:31-0400 Systolic blood pressure 138 mm[Hg] Hodan Mara PA-C Work Phone: [facility] 02-09-2022 12:49-0400 Body weight 114.31 kg Hodan Mara PA-C Work Phone: [facility] 02-09-2022 12:49-0400 Diastolic blood pressure 88 mm[Hg] Hodan Mara PA-C Work Phone: [facility] 02-09-2022 12:49-0400 Heart rate 102 /min Hodan Mara PA-C Work Phone: [facility] 02-09-2022 12:49-0400 Respiratory rate 20 /min Hodan Mara PA-C Work Phone: [facility] 02-09-2022 12:49-0400 SaO2% (BldA) [Mass fraction] 86 % Hodan LYNN-C Work Phone: [facility] 02-09-2022 12:49-0400 Systolic blood pressure 140 mm[Hg] Hodan Christine PA-C Work Phone: [facility] 01-30-2022 08:59-0400 Body temperature 97.59 [degF] Phuc Martines DO Work Phone: [facility] 01-30-2022 08:59-0400 Body weight 115.21 kg Phuc Fraustoon DO Work Phone: [facility] 01-30-2022 08:59-0400 Diastolic blood pressure 74 mm[Hg] Phuc Martines DO Work Phone: [facility] 01-30-2022 08:59-0400 Heart rate 104 /min Phuc Fraustoon DO Work Phone: [facility] 01-30-2022 08:59-0400 Respiratory rate 20 /min Phuc Perezrison DO Work Phone: [facility] 01-30-2022 08:59-0400 SaO2% (BldA) [Mass fraction] 88 % Phuc Martines DO Work Phone: [facility] 01-30-2022 08:59-0400 Systolic blood pressure 150 mm[Hg] Phuc Martines DO Work Phone: [facility] Encounters Encounter Date Encounter Type Care Provider Facility Start: 05-13-2025 Evaluation and manag ement of inpatient Dr. Nicko Vallejo DO -Progressive Care Unit Work Phone: Start: 05-13-2025 Emergency department patient visit Dr. Phuc Martines DO Work Phone: -Emergency Department Work Phone: Start: 05-12-2025 End: 05-12-2025 Follow-up encounter Sofi Garcia PA-C Work Phone: [facility] Start: 05-11-2025 End: 05-11-2025 Office outpatient visit 40 minutes Sofi Garcia PA-C Work Phone: [facility] Comment on above: Hospital discharge f ollow-up (Primary Dx); Atrial flutter, unspecified type (HCC); Stage 3 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); RUQ pain; Congestive heart failure, unspecified HF chronicity, unspecified heart failure type (HCC); Essential hypertension Start: 05-07-2025 End: 05-07-2025 Patient encounter procedure Kim GONZALEZ -[facility] Work Phone: Start: 05-07-2025 End: 05-07-[address] Phuc Martines DO Work Phone: [facility] Start: 04-27-2025 Non-patient / Non-visit Dr. George Polanco MD [facility] Work Phone: Start: 04-26-2025 Non-patient / Non-visit Dr. George Polanco MD [facility] Work Phone: Start: 04-25-2025 Non-patient / Non-visit Dr. George Polanco MD [facility] Work Phone: Start: 04-24-2025 Non-patient / Non-visit Dr. George Polanco MD [facility] Work Phone: Start: 04-23-2025 ambulatory Vigrinia Henriquez Facility :[facility] Start: 04-23-2025 End: 04-27-2025 Evaluation and management of inpatient Dr. Virginia Henriquez MD -Progressive Care Unit Work Phone: Start: 04-23-2025 End: 04-23-2025 Office outpatient visit 40 minutes Tyra Carson APRN.CNP Work Phone: [facility] Comment on above: Acute confusion (Blanca patrizia Dx); Atrial flutter, unspecified type (HCC); Tachycardia; Stage 3 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); Congestive heart failure, unspecified HF chronicity, unspecified heart failure type (HCC); Hypersomnia; Hives; Abnormal pulse oximetry Start: 04-23-2025 End: 04-23-2025 ambulatory TYRA CARSON Facility:[facility] Start: 04-22-2025 End: 04-22-2025 Follow-up encounter Anais LYNN Work Phone: [facility] Comment on above: Results Start: 04-20-2025 End: 04-20-2025 Patient encounter procedure Damon Eugene APRN.AIRCRAFT ARMORER Work Phone: [facility] Comment on above: Acute cystitis with hematuria; Candidal intertrigo; Confusion Start: 04-20-2025 End: 04-20-2025 ambulatory PHUC MARTINES Facility:[facility] Start: 04-06-2025 End: 04-06-2025 ambulatory Rajendra Goodman MANUFACTURING ENGINEER MACHINING.AIRCRAFT ARMORER Work Phone: Pulmonary Medicine Comment on above: Sleep Study Start: 03-31-2025 End: 03-31-2025 Patient encounter procedure Janette Damon APRN.AIRCRAFT ARMORER Work Phone: [facility] Comment on above: Essential (primary) hypertension; Atrial flutter, unspecified type (HCC) Start: 03-31-2025 End: 03-31-2025 ambulatory JANETTE DAMON Facility:[facility] Start: 03-30-2025 End: 03-30-[address] Phuc Martines DO Work Phone: [facility] Work Phone: Start: 03-30-2025 End: 03-30-[address] Bryan Elena MD -[facility] Work Phone: Start: 03-10-2025 End: 03-10-2025 Office outpatient visit 15 minutes Rajendra Goodman MANUFACTURING ENGINEER MACHINING.AIRCRAFT ARMORER Work Phone: Pulmonary Medicine Comment on above: Daytime sleepiness ( Primary Dx); Stage 3 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); Chronic respiratory failure with hypoxia (HCC) Start: 03-10-2025 End: 03-10-2025 ambulatory RAJENDRA GOODMAN Facility:[facility] Start: 03-01-2025 End: 03-01-2025 Patient encounter procedure Janette Benedictlogcarleen AVELARAIRCRAFT ARMORER Work Phone: [facility] Comment on above: Hospital discharge f ollow-up (Primary Dx); Atrial flutter, unspecified type (HCC); Congestive heart failure, unspecified HF chronicity, unspecified heart failure type (HCC); Stage 3 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); Oxygen dependent; Essential hypertension Start: 03-01-2025 End: 03-01-2025 ambulatory JANETTE PODLOGCARLEEN Facility:[facility] Start: 02-23-2025 Non-patient / Non-visit Dr. Yee Jones MD -[facility] Work Phone: Start: 02-22-2025 Non-patient / Non-visit Dr. Yee Jones MD -[facility] Work Phone: Start: 02-21-2025 Non-patient / Non-visit Dr. Claudia Valerio DO [facility] Work Phone: Start: 02-20-2025 ambulatory Phuc Allen y:[facility] Start: 02-20-2025 Non-patient / Non-visit Dr. Mercy smith MD -[facility] Start: 02-20-2025 Non-patient / Non-visit Dr. Claudia Valerio DO [facility] Work Phone: Start: 02-19-2025 ambulatory Kym Norton Facility:[facility] Start: 02-19-2025 End: 02-23-2025 Evaluation and management of inpatient Dr. Yee Jones MD -Progressive Care Unit Work Phone: Start: 01-26-2025 End: 01-26-2025 Follow-up encounter Maricruz Camp APRN.AIRCRAFT ARMORER Work Phone: Pulmonary Medicine Start: 01-25-2025 End: 01-25-2025 Patient encounter procedure Maricruz Camp APRN.AIRCRAFT ARMORER Work Phone: [facility] Comment on above: Multiple lung nodule s (Primary Dx); Former tobacco use Start: 01-25-2025 End: 01-25-2025 ambulatory MARICRUZ CAMP Facility:[facility] Start: 01-25-2025 End: 01-25-2025 Subsequent hospital visit by physician [facility] (I-Stat) Work Phone: Cat Scan Start: 01-21-2025 End: 03-23-2025 Follow-up encounter Pratibha King APRN.CNP Work Phone: [facility] Start: 01-20-2025 End: 01-20-2025 ambulatory PHUC MARTINES Facility:[facility] Start: 01-20-2025 End: 01-20-2025 Patient encounter procedure Phuc Martines DO Work Phone: [facility] Medicine [place] Comment on above: Medicare annual well ness visit, subsequent (Primary Dx); Hair thinning; Fatigue, unspecified type; Impaired fasting glucose; Dyslipidemia; Vitamin D deficiency; Stage 3 severe COPD by GOLD classification ([facility]); Essential hypertension; Oxygen dependent; Morbid obesity with BMI of 45.0-49.9, adult ([facility]) Start: 01-13-2025 End: 01-13-2025 ambulatory PHUC MARTINES Facility:[facility] Start: 12-25-2024 End: 12-25-2024 ambulatory RAJENDRA GOODMAN Facility:[facility] Start: 12-25-2024 End: 12-25-2024 Office outpatient visit 15 minutes Rajendra Goodman APRN.CNP Work Phone: Pulmonary Medicine Comment on above: Stage 3 severe COPD by GOLD classification ([facility]) (Primary Dx); Chronic respiratory failure with hypoxia ([facility]); Former cigarette smoker Start: 12-03-2024 End: 12-03-2024 ambulatory PHUC PEREZRISON Facility:[facility] Start: 12-03-2024 End: 12-03-2024 Subsequent hospital visit by physician Screen Mammo [facility] Mammogram Comment on above: Encounter for screen ing mammogram for breast cancer [Z12.31] Start: 11-27-2024 End: 11-27-2024 Refill Phuc Martines DO Work Phone: Family Medicine [place] Comment on above: Refill Request; Lab Orders Start: 11-11-2024 End: 11-11-2024 ambulatory Jacobo Donald MA [facility] [place] Start: 11-11-2024 End: 11-11-2024 Patient encounter procedure Jacobo Donald MA [facility] [place] Comment on above: Population Health Na vigation Outreach ([facility] [place] [facility]) Start: 11-05-2024 End: 11-05-2024 ambulatory Irma WATKINS Pulmonary Medicine Start: 10-21-2024 End: 10-26-2024 ambulatory Phuc Martines DO Work Phone: Internal Medicine [facility] Start: 10-20-2024 End: 10-20-2024 ambulatory Maricruz Camp APRN.AIRCRAFT ARMORER Work Phone: Pulmonary Medicine Start: 10-19-2024 End: 10-19-2024 E-mail encounter from caregiver Hodan Christine PA-C Work Phone: Pulmonary Medicine Start: 10-19-2024 End: 10-19-2024 Patient encounter procedure Maricruz Camp APRN.AIRCRA[employer] ARMORER Work Phone: Pulmonary Medicine Comment on above: Multiple lung nodule s (Primary Dx); Encounter for screening for lung cancer; Former tobacco use Start: 10-19-2024 End: 10-19-2024 ambulatory Hodan Christine PA-C Work Phone: Pulmonary Medicine Comment on above: check in Start: 10-19-2024 End: 10-19-2024 Subsequent hospital visit by physician Ct [facility] (I-Stat) Work Phone: Cat Scan Comment on above: Former cigarette smo ker [Z87.891] Start: 08-13-2024 End: 08-13-2024 ambulatory Phuc Martines DO Work Phone: Family Medicine [place] Comment on above: Pap and Mammo Start: 07-17-2024 End: 07-17-2024 Refill Vicky Duong APRN.AIRCRAFT ARMORER Work Phone: Family Medicine [place] Comment on above: Refill Request Start: 06-26-2024 End: 06-26-2024 ambulatory TRESSA GONZALEZ Facility:[facility] Start: 06-26-2024 End: 06-26-2024 Patient encounter procedure Tressa Gonzalez MD Work Phone: Pulmonary Medicine Comment on above: Stage 3 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) (Primary Dx); Chronic hypoxemic respiratory failure (HCC); Former cigarette smoker; Morbid obesity (HCC) Start: 04-26-2024 End: 04-26-2024 Patient encounter procedure Damon Eugene APRN.AIRCRAFT ARMORER Work Phone: [facility] Comment on above: Skin infection (Prim luna Dx) Start: 03-30-2024 Telephone encounter Phuc robins DO Work Phone: Family [facility] [place] Comment on above: Patient Update Start: 03-13-2024 End: 03-13-2024 Patient encounter procedure Phuc Martines DO Work Phone: Family [facility] [place] Comment on above: Acute bronchitis wit h [...] 02-12-2024 Refill Phuc caban DO Work Phone: Family [facility] [place] Comment on above: Refill Request Start: 01-29-2024 End: 01-29-2024 Patient encounter procedure Srikanth Estrada APRN.AIRCRAFT ARMORER Work Phone: [facility] Comment on above: Skin infection (Prim luna Dx) Start: 12-26-2023 End: 12-26-2023 Patient encounter procedure Tressa Gonzalez MD Work Phone: Pulmonary Medicine Comment on above: Stage 3 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) (Primary Dx); Chronic respiratory failure with hypoxia (HCC); Morbid obesity with BMI of 45.0-49.9, adult (HCC); Lung nodules Start: 12-24-2023 Telephone encounter Phuc robins DO Work Phone: [facility] [place] Comment on above: Orders Start: 10-08-2023 End: 10-08-2023 Subsequent hospital visit by physician Ct [facility] (I-Stat) Work Phone: Cat Scan Comment on above: Former cigarette smo ker [Z87.891] Start: 09-17-2023 End: 09-17-2023 Subsequent hospital visit by physician Screen Mammo [facility] Mammogram Comment on above: Encounter for screen ing mammogram for malignant neoplasm of breast [Z12.31] Start: 08-16-2023 Telephone encounter Phuc robins DO Work Phone: [facility] [place] Comment on above: Results Start: 08-14-2023 End: 08-14-2023 Patient encounter procedure Phuc Martines DO Work Phone: [facility] [place] Comment on above: Essential hypertensi on (Primary Dx); Need for influenza vaccination; Encounter for screening mammogram for malignant neoplasm of breast; Need for RSV immunization; Vitamin D deficiency; Impaired fasting glucose; Stage 3 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); Oxygen dependent; Fatigue, unspecified type; Rash of foot; Dyslipidemia Start: 07-28-2023 Refill Phuc Ceron Brandondelaney caban DO Work Phone: [facility] [place] Comment on above: Refill Request Start: 06-13-2023 End: 06-13-2023 [facility] Work Phone: [facility] Comment on above: Spirometry Start: 06-13-2023 End: 06-13-2023 Patient encounter procedure [facility] Work Phone: [place] [facility] Comment on above: COPD, severe (HCC) ( Primary Dx); Chronic hypoxemic respiratory failure (HCC); Former cigarette smoker; Morbid obesity (HCC) Start: 05-30-2023 Telephone encounter Tressa Gonzalez MD Work Phone: Pulmonary Medicine Comment on above: Patient Question (Adrián chan appt) Start: 03-06-2023 End: 03-06-2023 Subsequent hospital visit by physician Us [facility] 2 Work Phone: Radiology Comment on above: Cyst of spleen [D73. 4] Start: 12-04-2022 Refill Phuc Osmany caban DO Work Phone: Family [facility] [place] Comment on above: Refill Request Start: 10-10-2022 End: 10-10-2022 ambulatory Pulm Lab [facility] Work Phone: PULM LAB [facility] Comment on above: Arrived Medicare corresponde nce Start: 10-10-2022 End: 10-10-2022 Patient encounter procedure Pulm Lab [facility] Work Phone: [place] [facility] Start: 09-28-2022 End: 09-28-2022 Subsequent hospital visit by physician Xr [facility] [place] Work Phone: Radiology Comment on above: COVID [U07.1] Start: 09-28-2022 End: 09-28-2022 Patient encounter procedure Pratibha King APRN.AIRCRAFT ARMORER Work Phone: Family Medicine [place] Comment on above: COVID (Primary Dx); Chronic obstructive pulmonary disease, unspecified COPD type (HCC); Bacterial sinusitis; Oxygen dependent Start: 09-12-2022 Documentation procedure Mammog angel Coordinator [facility] Start: 09-12-2022 Letter encounter Mammography Coordinator [facility] Department Start: 09-12-2022 Telephone encounter Phuc robins DO Work Phone: Family Medicine [place] Comment on above: Forms Start: 09-11-2022 End: 09-11-2022 Subsequent hospital visit by physician Screen Mammo [facility] Mammogram Comment on above: Encounter for screen ing mammogram for breast cancer [Z12.31] Start: 09-06-2022 Telephone encounter Pratibha Ma APRN.AIRCRAFT ARMORER Work Phone: Family Medicine [place] Comment on above: Results; Scheduling Start: 09-05-2022 ambulatory Phuc caban DO Work Phone: Internal Medicine [place] Start: 09-03-2022 End: 09-03-2022 Subsequent hospital visit by physician Us [facility] Mob 2 Work Phone: Radiology Comment on above: Cyst of spleen [D73. 4] Start: 08-30-2022 Telephone encounter Pratibha Ma [employer]ER Work Phone: Family Medicine [place] Comment on above: Results Start: 08-29-2022 End: 08-29-2022 Subsequent hospital visit by physician Ct [facility] (I-Stat) Work Phone: Cat Scan Comment on above: Chronic obstructive pulmonary disease, unspecified COPD type (HCC) [J44.9] Start: 08-03-2022 Telephone encounter Phuc Osmany Carver kishasrini DO Work Phone: Family Medicine [place] Comment on above: Forms Start: 08-01-2022 End: 08-01-2022 Patient encounter procedure Phuc Martines DO Work Phone: Family Medicine [place] Comment on above: Chronic obstructive pulmonary disease, unspecified COPD type (HCC) (Primary Dx); Essential hypertension; Need for influenza vaccination; Impaired fasting glucose; Dyslipidemia; Chronic respiratory failure with hypoxia (HCC); Stage 3 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); Oxygen dependent Start: 07-04-2022 Orders Only Tressa Gonzalez MD Work Phone: Pulmonary Medicine Comment on above: Chronic obstructive pulmonary disease, unspecified COPD type (HCC) (Primary Dx) Orders Start: 03-19-2022 ambulatory Hodan Gomez PA-C Work Phone: Pulmonary Medicine Comment on above: results Start: 03-19-2022 E-mail encounter fro m caregiver Hodan Christine PA-C Work Phone: [place] [facility] Start: 03-16-2022 End: 03-16-2022 ambulatory Respiratory Therapist [facility] Work Phone: Pulmonary Medicine Comment on above: Spirometry Start: 03-16-2022 End: 03-16-2022 Patient encounter procedure Respiratory Therapist [facility] Work Phone: [place] [facility] Comment on above: Chronic obstructive pulmonary disease, unspecified COPD type (HCC) (Primary Dx); Chronic hypoxemic respiratory failure (HCC); Dyspnea and respiratory abnormalities; Former smoker Start: 03-07-2022 Refill Phuc caban DO Work Phone: [facility] Comment on above: Refill Request Start: 02-09-2022 End: 02-09-2022 Patient encounter procedure Hodan Christine PA-C Work Phone: Pulmonary Medicine Comment on above: Chronic obstructive pulmonary disease, unspecified COPD type (HCC) (Primary Dx); Dyspnea and respiratory abnormalities Start: 01-30-2022 End: 01-30-2022 Patient encounter procedure Phuc Martines DO Work Phone: [facility] [place] Comment on above: Chronic obstructive pulmonary disease, unspecified COPD type (HCC) (Primary Dx); Essential hypertension; Impaired fasting glucose; Dyslipidemia; Vitamin D deficiency; Lightheaded Start: 01-10-2021 End: 01-10-2021 Subsequent hospital visit by physician Xr [facility] [place] Work Phone: Radiology Comment on above: Acute gout involving toe of right foot, unspecified cause [M10.9] Start: 05-19-2019 End: 10-13-2019 Physical examination Phuc Martines DO Work Phone: [facility] Start: 09-10-2018 End: 09-10-2018 Patient encounter procedure [facility] Start: 09-05-2018 Encounter for other preprocedural examination [facility] Start: 09-05-2018 End: 09-05-2018 Patient encounter procedure [facility] Start: 11-09-2016 End: 10-13-2019 Patient encounter status Phuc Martines DO Work Phone: [facility] Procedures Date Procedure Procedure Detail Performing Clinician Start: 05-13-2025 CT angiography of ch est with contrast Dr. Phuc Martines DO Work Phone: Start: 05-13-[address] Phuc Martines DO Work Phone: Start: 05-13-[address] Phuc Martines DO Work Phone: Start: 05-13-2025 Carbon dioxide measu rement, partial pressure Dr. Phuc Martines DO Work Phone: Start: 05-13-2025 Gases blood o2 satur ation only direct tad Dr. Phuc Martines DO Work Phone: Start: 05-13-2025 Measurement of parti al pressure of oxygen in blood Dr. Phuc Martines DO Work Phone: Start: 05-13-[address] Phuc Martines DO Work Phone: Start: 05-07-2025 X-ray of chest, PA a nd lateral views Dr. Phuc Martines DO Work Phone: Start: 04-26-[address] Phuc [...] Ct thorax w/o contra st material Maricruz [place] MANUFACTURING ENGINEER MACHINING.AIRCRAFT ARMORER Work Phone: Start: 01-13-2025 Lipid 1996 panel - S joaquin or Plasma Phuc Martines DO Work Phone: Start: 12-03-2024 Screening digital br east tomosynthesis bi Bulk Order Provider Start: 10-19-2024 [facility] Maricruz [place] MANUFACTURING ENGINEER MACHINING.AIRCRAFT ARMORER Work Phone: Start: 03-13-2024 Adult depression scr eening assessment Tressa Gonzalez MD Work Phone: Start: 03-11-2024 Lipid [...] Start: 06-13-2023 Noninvasive ear/puls e oximetry multiple kay Christine PA-C Work Phone: Start: 03-06-2023 Us abdominal real ti me w/image limited [facility] MANUFACTURING ENGINEER MACHINING.AIRCRAFT ARMORER Work Phone: Start: 10-10-2022 Noninvasive ear/puls e oximetry multiple deter Phuc L Martines DO Work Phone: Start: 09-28-2022 Radiologic exam ches t 2 views [facility] MANUFACTURING ENGINEER MACHINING.AIRCRAFT ARMORER Work Phone: Start: 09-11-2022 End: 09-11-2022 Mammography Bulk Order Provider Start: 09-03-2022 Us abdominal real ti me w/image limited [facility] MANUFACTURING ENGINEER MACHINING.AIRCRAFT ARMORER Work Phone: Start: 08-29-2022 Ct thorax w/o contra st material Phuc L Martines DO Work Phone: Start: 08-01-2022 INFLUENZA VACCINE QUADRIVALENT 6 MO - 64 YRS IM Phuc Ceron Martines DO Work Phone: Start: 07-30-2022 Lipid 1995 panel - S joaquin or Plasma Phuc Martines DO Work Phone: Start: 05-01-2022 Adult depression scr eening assessment Tressa Gonzalez MD Work Phone: Start: 03-16-2022 Noninvasive ear/puls e oximetry multiple kay Christine PA-C Work Phone: Start: 03-16-2022 Spmtry w/vc expirato ry martin w/wo mxml vol vntj Hodan Christine PA-C Work Phone: Start: 04-26-2021 Adult depression scr eening assessment Phuc Martines DO Work Phone: Start: 01-10-2021 Radex foot complete minimum 3 views Tierra Villatoro PA-C Work Phone: Start: 09-02-2020 Mammography Phuc quiñonez DO Work Phone: Start: 09-10-2018 Colonoscopy Phuc quiñonez DO Work Phone: Plan of Treatment Date Care Activity Detail Author Start: 01-13-2030 Lipid panel Lipid Screening [facility] Start: 03-11-2029 Lipid panel Lipid Screening [facility] Start: 09-10-2028 Colonoscopy COLONOSCOPY [facility] Start: 09-10-2028 COLORECTAL CANCER SCREENING COLORECTAL CANCER SCREENING [facility] Start: 09-10-2028 Screening for malign ant neoplasm of colon [facility] Start: 08-14-2028 Lipid 1996 panel - S joaquin or Plasma Lipid Screening [facility] Start: 08-14-2028 Lipid panel Lipid Screening [facility] Start: 05-11-2028 Diabetes Screening Diabetes Screenin g [facility] Start: 01-14-2028 Diabetes Screening Diabetes Screenin g [facility] Start: 07-30-2027 Lipid 1996 panel - S joaquin or Plasma Lipid Screening [facility] Start: 07-30-2027 LIPID SCREEN LIPID SCREEN [facility] Start: 03-11-2027 Diabetes Screening Diabetes Screenin g [facility] Start: 01-26-2027 LIPID SCREEN LIPID SCREEN [facility] Start: 08-14-2026 Diabetes Screening Diabetes Screenin g [facility] Start: 05-11-2026 Annual PCP Team [employer] hum[employer] Disease Visit Annual PCP Team Chronic Disease Visit [facility] Start: 04-23-2026 Annual PCP Team [employer] humza Disease Visit Annual PCP Team Chronic Disease Visit [facility] Start: 03-31-2026 Annual PCP Team [employer] humza Disease Visit Annual PCP Team Chronic Disease Visit [facility] Start: 03-01-2026 Annual PCP Team [employer] humza Disease Visit Annual PCP Team Chronic Disease Visit [facility] Start: 03-01-2026 BP Controlled (<130/80) BP Controlle d (<130/80) [facility] Start: 01-20-2026 Annual PCP Team [employer] humza Disease Visit Annual PCP Team Chronic Disease Visit [facility] Start: 01-20-2026 Medicare Annual Well ness Visit Medicare Annual Wellness Visit [facility] Start: 12-03-2025 Screening for malign ant neoplasm of breast Mammogram Screening [facility] Start: 11-09-2025 Urine microalbumin profile [facility] Start: 09-27-2025 End: 09-27-2025 Patient encounter procedure 09/27/2025 8:20 AM EST Office Visit Cardiology [address] [place] [address] Toribio Robertson MD [address] [place], [place] [id number] Dx: Atrial flutter, unspecified type (HCC) [I48.92]; Congestive heart failure, unspecified HF chronicity, unspecified heart failure type (HCC) [I50.9] Cardiology Comment on above: Dx: Atrial flutter, unspecified type (HCC) [I48.92]; Congestive heart failure, unspecified HF chronicity, unspecified heart failure type (HCC) [I50.9] Start: 09-02-2025 HPV TESTING HPV TESTING [facility] Start: 09-02-2025 PAP TESTING PAP TESTING [facility] Start: 07-30-2025 DIABETES SCREEN DIABETES SCREEN [facility] Start: 07-30-2025 Diabetes Screening Diabetes Screenin g [facility] Start: 07-29-2025 End: 07-29-2025 Patient encounter procedure Cat Scan Comment on above: 6 month LDCT 6 month LCS Start: 07-23-2025 End: 07-23-2025 Patient encounter procedure 07/23/2025 12:00 PM EDT Office Visit Family Medicine [place] [address] [place], [place] [id number] Phuc Martines DO [address] [place], [place] [id number] 6 month follow up Family Medicine [place] Comment on above: 6 month follow up Start: 06-28-2025 Influenza vaccination Influenza Vacc ine (#1) [facility] Start: 06-22-2025 End: 06-22-2025 Patient encounter procedure Pulmonary Medicine Comment on above: 6 month f/u Start: 05-26-2025 End: 08-25-2025 ALK PHOS ISOENZYM BL ALK PHOS ISOENZYM BL Lab Routine Elevated alkaline phosphatase level Expected: 05/26/2025, Expires: 08/25/[address] [facility] Comment on above: Expected: 05/26/2025 , Expires: 08/25/2025 Start: 05-26-2025 End: 08-25-2025 Gamma glutamyl transferase [Enzymatic activity/volume] in Serum or Plasma GGT Lab Routine Elevated alkaline phosphatase level Expected: 05/26/2025, Expires: 08/25/2025 [facility] Work Phone: Comment on above: Expected: 05/26/2025 , Expires: 08/25/2025 Start: 05-19-2025 End: 05-19-2025 Patient encounter procedure 05/19/2025 11:30 AM EDT Appointment Radiology [address] [place] [address] Dx: RUQ pain [R10.11] Radiology Comment on above: Dx: RUQ pain [R10.11 ] Start: 05-17-2025 End: 05-17-2025 Patient encounter procedure 05/17/2025 9:00 PM EDT Office Visit Neurology [address] [place] [address] Daytime sleepiness [R40.0] Neurology Comment on above: Daytime sleepiness [ R40.0] Start: 05-13-2025 Admission procedure [facility] Start: 05-13-2025 Verification routine [facility] Start: 05-13-2025 Hospital admission, emergency, from emergency room, medical nature [facility] Start: 05-13-2025 [facility] Start: 05-13-2025 CT angiography of ch est with contrast CTA Chest W/WO Contrast [facility] Start: 05-13-2025 Continuous pulse oximetry [facility] Start: 05-13-2025 Dual pressure sponta neous ventilation support [facility] Start: 05-13-2025 End: 05-13-2025 [facility] Start: 04-27-2025 Patient discharge [facility] Start: 04-26-2025 Referral to occupati onal therapist [facility] Start: 04-26-2025 Referral to service [facility] Start: 04-25-2025 Care planning and pr oblem solving actions [facility] Start: 04-24-2025 Care planning and pr oblem solving actions [facility] Start: 04-23-2025 Following clinical pathway protocol [facility] Start: 04-23-2025 Assessment of risk o f venous thromboembolism [facility] Start: 04-23-2025 Inhalation therapy procedure [facility] Start: 04-23-2025 Insertion of cathete r into peripheral vein [facility] Start: 04-23-2025 Introduction of urin luna catheter [facility] Start: 04-23-2025 Measuring intake and output [facility] Start: 04-23-2025 Oxygen therapy [facility] Start: 04-23-2025 Providing care accor ding to standard [facility] Start: 04-23-2025 Provision of activit y privileges [facility] Start: 04-23-2025 Referral to service [facility] Start: 04-23-2025 [facility] Start: 04-23-2025 Care planning and pr oblem solving actions [facility] Start: 04-23-2025 Respiratory pathogen s DNA and RNA panel - Respiratory specimen by RENETTA with probe detection [facility] Start: 04-23-2025 Verification routine [facility] Start: 04-23-2025 Admission procedure [facility] Start: 04-23-2025 Hospital admission, emergency, from emergency room, medical nature [facility] Start: 04-23-2025 Serum inorganic phos phate measurement [facility] Start: 04-23-2025 [facility] Start: 04-23-2025 End: 04-23-2025 Patient encounter procedure 04/23/2025 3:00 PM EDT Office Visit Family Medicine [address] [address] Tyra Carson APRN.[facility] [address] [place] [address] increased confussion Family Medicine [place] Comment on above: increased confussion Start: 04-23-2025 [facility] Start: 03-31-2025 End: 03-31-2025 Patient encounter procedure 03/31/2025 1:00 PM EDT Office Visit [facility] [place] [address] [place] [address] Janette Damon APRN.AIRCRAFT ARMORER [address] [place] [address] BP follow up Family Medicine [place] Comment on above: BP follow up Start: 03-30-2025 Patient referral [facility] Work Phone: Start: 03-30-2025 Evaluation of diagno stic study results [facility] Start: 03-13-2025 Annual PCP Team [employer] humza Disease Visit Annual PCP Team Chronic Disease Visit [facility] Start: 03-13-2025 Anxiety Screening Anxiety Screening [facility] Start: 03-13-2025 Depression Screening Depression Scre [facility] Start: 03-10-2025 End: 03-10-2025 Patient encounter procedure 03/10/2025 1:00 PM EDT Office Visit Pulmonary Medicine [address] [place] [address] Rajendra Goodman APRN.AIRCRAFT ARMORER [address] [place] [address] recent hospital stay Pulmonary Medicine Comment on above: recent hospital stay Start: 02-23-2025 Patient discharge [facility] Start: 02-20-2025 Vital signs measurements [facility] Start: 02-20-2025 Continuous pulse oximetry [facility] Start: 02-20-2025 Vital signs measurements [facility] Start: 02-20-2025 Vital signs measurements [facility] Start: 02-20-2025 Care planning and pr oblem solving actions [facility] Start: 02-20-2025 Vital signs measurements [facility] Start: 02-20-2025 Vital signs measurements [facility] Start: 02-20-2025 Vital signs measurements [facility] Start: 02-20-2025 Vital signs measurements [facility] Start: 02-20-2025 Dual pressure sponta neous ventilation support [facility] Start: 02-20-2025 Physiotherapy of chest [facility] Start: 02-19-2025 Vital signs measurements [facility] Start: 02-19-2025 Vital signs measurements [facility] Start: 02-19-2025 Vital signs measurements [facility] Start: 02-19-2025 Application of elast ic bandage [facility] Start: 02-19-2025 Assessment of risk o f venous thromboembolism [facility] Start: 02-19-2025 Bedrest [facility] Start: 02-19-2025 Elevation of affecte d extremity [facility] Start: 02-19-2025 Elevation of head of bed [facility] Start: 02-19-2025 Insertion of cathete r into peripheral vein [facility] Start: 02-19-2025 Measuring intake and output [facility] Start: 02-19-2025 Notification of physician [facility] Start: 02-19-2025 Oxygen therapy [facility] Start: 02-19-2025 Patient education [facility] Start: 02-19-2025 Providing care accor ding to standard [facility] Start: 02-19-2025 Referral to service [facility] Start: 02-19-2025 [facility] Start: 02-19-2025 Vital signs measurements [facility] Start: 02-19-2025 Following clinical pathway protocol [facility] Start: 02-19-2025 Admission procedure [facility] Start: 02-19-2025 End: 02-19-2025 [facility] Start: 02-19-2025 Blood culture Blood Culture [facility] Start: 02-19-2025 Inhalation therapy procedure [facility] Start: 02-17-2025 End: 02-17-2025 Patient encounter procedure 02/17/2025 4:20 PM EDT Office Visit Family [facility] [place] [address] [place] [address] Phuc Martines, [address] [place] [address] FOLLOW UP [facility] [place] Comment on above: FOLLOW UP Start: 01-28-2025 BP Controlled (<130/80) BP Controlle d (<130/80) [facility] Start: 01-26-2025 DIABETES SCREEN DIABETES SCREEN [facility] Start: 01-25-2025 End: 01-25-2025 Patient encounter procedure Cat Scan Comment on above: LDCT [facility] Start: 01-20-2025 End: 01-20-2025 Patient encounter procedure 01/20/2025 3:00 PM EDT Office Visit [facility] Medicine [place] [address] [facility], [place] [phone] Phuc Martines DO [address] [facility], [place] [id number] FOLLOW UP [facility] [place] Comment on above: FOLLOW UP Start: 01-20-2025 End: 04-21-2025 Cobalamin (Vitamin B12) [Mass/volume] in Serum or Plasma [facility] Comment on above: Expected: 01/20/2025 , Expires: 04/21/2025 Start: 01-20-2025 End: 04-21-2025 Folate [Mass/volume] in Serum or Plasma [facility] Comment on above: Expected: 01/20/2025 , Expires: 04/21/2025 Start: 01-20-2025 End: 04-21-2025 Iron and Iron binding capacity panel - Serum or Plasma [facility] Comment on above: Expected: 01/20/2025 , Expires: 04/21/2025 Start: 01-20-2025 End: 04-21-2025 Thyrotropin [Units/volume] in Serum or Plasma [facility] Work Phone: Comment on above: Expected: 01/20/2025 , Expires: 04/21/2025 Start: 01-20-2025 End: 04-21-2025 Thyroxine (T4) free [Mass/volume] in Serum or Plasma [facility] Comment on above: Expected: 01/20/2025 , Expires: 04/21/2025 Start: 01-20-2025 End: 04-21-2025 Triiodothyronine (T3) Free [Mass/volume] in Serum or Plasma [facility] Comment on above: Expected: 01/20/2025 , Expires: 04/21/2025 Start: 12-26-2024 End: 11-18-2025 CT Lung parenchyma WO contrast CT LUNG FOLLOWUP WO IVCON Radiology Routine Expected: 12/26/2024, Expires: 11/18/2025 [facility] Work Phone: Comment on above: Expected: 12/26/2024 , Expires: 11/18/2025 Start: 12-25-2024 End: 12-25-2024 Patient encounter procedure 12/25/2024 11:30 AM EST Office Visit Pulmonary Medicine [address] [place], [place] [phone] Rajendra Goodman APRN.AIRCRAFT ARMORER [address] [place] [address] 6 MTH F/U COPD Pulmonary Medicine Comment on above: 6 MTH F/U COPD Start: 12-03-2024 End: 12-03-2024 Patient encounter procedure 12/03/2024 11:10 AM EST Appointment Mammogram [address] [place], [place] [phone] Encounter for screening mammogram for breast cancer [Z12.31] Mammogram Comment on above: Encounter for screen ing mammogram for breast cancer [Z12.31] Start: 11-27-2024 End: 02-26-2025 CBC W Auto Differential panel - Blood COMPLETE BLOOD COUNT AND DIFFERENTIAL Lab Routine Dyslipidemia Expected: 11/27/2024, Expires: 02/26/[address] [facility] Comment on above: Expected: 11/27/2024 , Expires: 02/26/2025 Start: 11-27-2024 End: 02-26-2025 Comprehensive metabolic 2000 panel - Serum or Plasma COMPREHENSIVE METABOLIC PANEL Lab Routine Dyslipidemia Impaired fasting glucose Expected: 11/27/2024, Expires: 02/26/[address] [facility] Comment on above: Expected: 11/27/2024 , Expires: 02/26/2025 Start: 11-27-2024 End: 02-26-2025 Hemoglobin A1c in Blood HEMOGLOBIN A1C Lab Routine Impaired fasting glucose Expected: 11/27/2024, Expires: 02/26/2025 [facility] Work Phone: Comment on above: Expected: 11/27/2024 , Expires: 02/26/2025 Start: 11-27-2024 End: 02-26-2025 Lipid 1996 panel - Serum or Plasma LIPID PANEL BASIC Lab Routine Dyslipidemia Expected: 11/27/2024, Expires: 02/26/[address] [facility] Comment on above: Expected: 11/27/2024 , Expires: 02/26/2025 Start: 10-28-2024 Advance Directive Discussion Advance Directive Discussion [facility] Start: 10-19-2024 End: 10-19-2024 Patient encounter procedure Cat Scan Comment on above: LUNG SCREENING CT LUNG SCREENING Start: 09-17-2024 Mammography Mammogram Screening [facility] Start: 09-17-2024 Screening for malign ant neoplasm of breast Mammogram Screening [facility] Start: 09-08-2024 End: 09-08-2024 Patient encounter procedure 09/08/2024 10:40 AM EST Office Visit Family Medicine [place] [address] [place], [place] [phone] Phuc Martines, [address] [place], [place] [phone] 6 month follow up Family Medicine [place] Comment on above: 6 month follow up Start: 08-14-2024 Annual PCP Team [employer] humza Disease Visit Annual PCP Team Chronic Disease Visit [facility] Start: 08-14-2024 BP Controlled (<130/80) BP Controlle d (<130/80) [facility] Start: 06-28-2024 Covid-19 Vaccine ( season) Covid-19 Vaccine ( season) [facility] Start: 06-28-2024 Covid-19 Vaccine ( season) Covid-19 Vaccine ( season) [facility] Start: 06-28-2024 Influenza vaccination Influenza Vacc ine (#1) [facility] Start: 06-26-2024 End: 06-26-2024 Patient encounter procedure 06/26/2024 11:45 AM EDT Office Visit Pulmonary Medicine [address] [place] [address] Tressa Gonzalez MD [address] [place] [address] 6 month f/u Pulmonary Medicine Comment on above: 6 month f/u Start: 04-26-2024 End: 07-26-2024 Bacteria identified in Wound by Culture ABSCESS AND WOUND CULTURE WITH GRAM STAIN Microbiology Routine Skin infection Expected: 04/26/2024, Expires: 07/26/2024 [facility] Work Phone: Comment on above: Expected: 04/26/2024 , Expires: 07/26/2024 Start: 02-07-2024 ANNUAL PCP TEAM SOLDER LEVELER [employer] BOAR[employer] HUMZA DISEASE VISIT ANNUAL PCP TEAM CHRONIC DISEASE VISIT [facility] Start: 12-24-2023 End: 03-24-2024 CBC W Auto Differential panel - Blood CBC + DIFF Lab Routine Dyslipidemia Expected: 12/24/2023, Expires: 03/24/2024 [facility] Work Phone: Comment on above: Expected: 12/24/2023 , Expires: 03/24/2024 Start: 12-24-2023 End: 03-24-2024 Comprehensive metabolic 2000 panel - Serum or Plasma COMP METABOLIC PANEL Lab Routine Dyslipidemia Expected: 12/24/2023, Expires: 03/24/2024 [facility] Work Phone: Comment on above: Expected: 12/24/2023 , Expires: 03/24/2024 Start: 12-24-2023 End: 03-24-2024 Hemoglobin A1c in Blood HGB A1C Lab Routine Impaired fasting glucose Expected: 12/24/2023, Expires: 03/24/2024 [facility] Work Phone: Comment on above: Expected: 12/24/2023 , Expires: 03/24/2024 Start: 12-24-2023 End: 03-24-2024 Lipid 1996 panel - Serum or Plasma LIPID PANEL BASIC Lab Routine Dyslipidemia Expected: 12/24/2023, Expires: 03/24/2024 [facility] Work Phone: Comment on above: Expected: 12/24/2023 , Expires: 03/24/2024 Start: 10-28-2023 Advance Directive Discussion Advance Directive Discussion [facility] Start: 10-28-2023 Behavioral Health Screening Behavioral Health Screening [facility] Start: 10-28-2023 Depression Assessment Depression Ass essment [facility] Start: 09-28-2023 ANNUAL PCP TEAM SOLDER LEVELER [employer] BOAR[employer] HUMZA DISEASE VISIT ANNUAL PCP TEAM CHRONIC DISEASE VISIT [facility] Start: 09-11-[address] [facility] Start: 08-29-2023 Influenza vaccination LUNG CANCER SC REENING [facility] Start: 08-29-2023 Screening for malign ant neoplasm of lung Lung Cancer Screening [facility] Start: 08-14-2023 End: 11-13-2023 25-hydroxyvitamin D3 [Mass/volume] in Serum or Plasma [facility] Work Phone: Comment on above: Expected: 08/14/2023 , Expires: 11/13/2023 Start: 08-14-2023 End: 11-13-2023 Cobalamin (Vitamin B12) [Mass/volume] in Serum or Plasma [facility] Work Phone: Comment on above: Expected: 08/14/2023 , Expires: 11/13/2023 Start: 08-14-2023 End: 11-13-2023 Comprehensive metabolic 2000 panel - Serum or Plasma [facility] Work Phone: Comment on above: Expected: 08/14/2023 , Expires: 11/13/2023 Start: 08-14-2023 End: 11-13-2023 Hemoglobin A1c in Blood [facility] Work Phone: Comment on above: Expected: 08/14/2023 , Expires: 11/13/2023 Start: 08-14-2023 End: 11-13-2023 Lipid 1996 panel - Serum or Plasma [facility] Work Phone: Comment on above: Expected: 08/14/2023 , Expires: 11/13/2023 Start: 08-14-2023 End: 11-13-2023 Thyrotropin [Units/volume] in Serum or Plasma [facility] Work Phone: Comment on above: Expected: 08/14/2023 , Expires: 11/13/2023 Start: 08-14-2023 End: 11-13-2023 Thyroxine (T4) free [Mass/volume] in Serum or Plasma [facility] Work Phone: Comment on above: Expected: 08/14/2023 , Expires: 11/13/2023 Start: 08-14-2023 End: 11-13-2023 Triiodothyronine (T3) Free [Mass/volume] in Serum or Plasma [facility] Work Phone: Comment on above: Expected: 08/14/2023 , Expires: 11/13/2023 Start: 08-01-2023 ANNUAL PCP TEAM SOLDER LEVELER [employer] BOAR[employer] HUMZA DISEASE VISIT ANNUAL PCP TEAM CHRONIC DISEASE VISIT [facility] Start: 06-28-2023 Covid-19 Vaccine () Covid-19 Vaccine () [facility] Start: 06-28-2023 Influenza vaccination [facility] Start: 05-01-2023 Adult depression screening assessment DEPRESSION SCREENING [facility] Start: 05-01-2023 ANNUAL PCP TEAM SOLDER LEVELER [employer] BOAR[employer] HUMZA DISEASE VISIT ANNUAL PCP TEAM CHRONIC DISEASE VISIT [facility] Start: 03-06-2023 End: 10-06-2023 Us abdominal real time w/image limited US ABD SPLEEN Radiology Routine Cyst of spleen Expected: 03/06/2023, Expires: 10/06/2023 [facility] Work Phone: Comment on above: Expected: 03/06/2023 , Expires: 10/06/2023 Start: 01-30-2023 ANNUAL PCP TEAM SOLDER LEVELER [employer] BOAR[employer] HUMZA DISEASE VISIT ANNUAL PCP TEAM CHRONIC DISEASE VISIT [facility] Start: 01-30-2023 BP CONTROLLED (<130/80) BP CONTROLLE D (<130/80) [facility] Start: 01-30-2023 zzBP Controlled (<13 0/80) (Retired) zzBP Controlled (<130/80) (Retired) [facility] Start: 10-28-2022 ADVANCE DIRECTIVE DISCUSSION ADVANCE DIRECTIVE DISCUSSION [facility] Start: 10-28-2022 DEPRESSION ASSESSMENT DEPRESSION ASS ESSMENT [facility] Start: 2022 ADVANCE DIRECTIVE DISCUSSION ADVANCE DIRECTIVE DISCUSSION [facility] Start: 2022 BONE DENSITY BONE DENSITY [facility] Start: 2022 Bone Density Screening Bone Density Screening [facility] Start: 2022 PNEUMOCOCCAL (3 - PP SV23 if available, else PCV20) PNEUMOCOCCAL (3 - PPSV23 if available, else PCV20) [facility] Start: 2022 PNEUMOCOCCAL (3 - PP SV23 or PCV20) PNEUMOCOCCAL (3 - PPSV23 or PCV20) [facility] Start: 2022 PNEUMOCOCCAL: 65+ (3 - PPSV23 if available, else PCV20) PNEUMOCOCCAL: 65+ (3 - PPSV23 if available, else PCV20) [facility] Start: 2022 Screening for osteoporosis Bone Density Screening [facility] Start: 06-28-2022 Influenza vaccination INFLUENZA (#1) [facility] Start: 05-05-2022 [facility] Start: 04-26-2022 Adult depression screening assessment DEPRESSION SCREENING [facility] Start: 12-16-2021 COVID-19 VACCINE (4 - Booster for Pfizer series) COVID-19 VACCINE (4 - Booster for Pfizer series) [facility] Start: 10-10-2021 COVID-19 VACCINE (4 - Booster for Pfizer series) COVID-19 VACCINE (4 - Booster for Pfizer series) [facility] Start: 10-10-2021 COVID-19 VACCINE (4 - Pfizer series) COVID-19 VACCINE (4 - Pfizer series) [facility] Start: 09-02-2021 Mammography MAMMOGRAM [facility] Start: 2017 RSV Vaccine (1 - 1-d ose 60+ series) RSV Vaccine (1 - 1-dose 60+ series) [facility] Start: 06-30-2016 FECAL OCCULT BLOOD FECAL OCCULT BLOO D [facility] Start: 06-30-2016 Screening for malign ant neoplasm of colon Fecal Occult Blood [facility] Start: 2002 COLOGUARD (FIT-DNA) COLOGUARD (FIT-D NA) [facility] Start: [address] COLONOGRAPHY [facility] Start: 2002 Screening for malign ant neoplasm of colon [facility] Start: 2002 SIGMOIDOSCOPY SIGMOIDOSCOPY [facility] Start: 1975 HIV SCREENING HIV SCREENING [facility] Bacteria identified in Urine by Culture BACTERIAL CULTURE, URINE Microbiology Routine Acute cystitis with hematuria 04/20/2025 11:11 AM EDT [facility] Work Phone: Basic metabolic 2008 panel with ionized calcium - Serum or Plasma [facility] End: 02-25-2026 CT Lung parenchyma WO contrast CT LUNG FOLLOWUP WO IVCON Radiology Routine Lung nodules 1 Occurrences starting 01/26/2025 until 02/25/2026 [facility] Work Phone: Comment on above: 1 Occurrences starti ng 01/26/2025 until 02/25/2026 CT LUNG SCREEN WO IVCON CT LUNG SCREEN WO IVCON Radiology Routine Former cigarette smoker 10/08/2023 1:24 PM EST [facility] Work Phone: End: 08-31-2023 Ct thorax w/o contrast material CT CHEST WO IVCON Radiology Routine Chronic obstructive pulmonary disease, unspecified COPD type (HCC) Chronic respiratory failure with hypoxia (HCC) Stage 3 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) Oxygen dependent 1 Occurrences starting 08/01/2022 until 08/31/2023 [facility] Work Phone: Comment on above: 1 Occurrences starti ng 08/01/2022 until 08/31/2023 End: 11-20-2025 DBT Breast - bilateral screening ANUSHA SCREENING W ASHLEY Radiology Routine Encounter for screening mammogram for breast cancer 1 Occurrences starting 10/21/2024 until 11/20/2025 [facility] Work Phone: Comment on above: 1 Occurrences starti ng 10/21/2024 until 11/20/2025 ECG COMPLETE ECG COMPLETE ECG Routine Tachycardia Atrial flutter, unspecified type (HCC) Ordered: 04/23/2025 [facility] Work Phone: Comment on above: Ordered: 04/23/2025 End: 02-09-2023 Echocardiography ECHO Cardiology Routine Chronic obstructive pulmonary disease, unspecified COPD type (HCC) 1 Occurrences starting 02/09/2022 until 02/09/2023 [facility] Work Phone: Comment on above: 1 Occurrences starti ng 02/09/2022 until 02/09/2023 Magnesium measurement [facility] End: 09-12-2024 ANUSHA SCREENING ANUSHA SCREENING Radiology Routine Encounter for screening mammogram for malignant neoplasm of breast 1 Occurrences starting 08/14/2023 until 09/12/2024 [facility] Work Phone: Comment on above: 1 Occurrences starti ng 08/14/2023 until 09/12/2024 Noninvasive ear/puls e oximetry multiple deter [id number] Procedures Routine Chronic obstructive pulmonary disease, unspecified COPD type (HCC) Oxygen dependent Ordered: 09/24/2022 [facility] Work Phone: Comment on above: Ordered: 09/24/2022 OXIMETRY - NOCTURNAL OXIMETRY - NOCTURNAL Procedures Routine Chronic obstructive pulmonary disease, unspecified COPD type (HCC) Chronic hypoxemic respiratory failure (HCC) Ordered: 03/16/2022 [facility] Work Phone: Comment on above: Ordered: 03/16/2022 OXIMETRY - NOCTURNAL OXIMETRY - NOCTURNAL Procedures Routine Chronic obstructive pulmonary disease, unspecified COPD type (HCC) Chronic respiratory failure with hypoxia (HCC) Stage 3 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) Oxygen dependent Ordered: 08/01/2022 [facility] Work Phone: Comment on above: Ordered: 08/01/2022 End: 03-11-2023 OXIMETRY WITH AMBULATION OXIMETRY WITH AMBULATION PFT Routine Chronic obstructive pulmonary disease, unspecified COPD type (HCC) 1 Occurrences starting 02/09/2022 until 03/11/2023 [facility] Work Phone: Comment on above: 1 Occurrences starti ng 02/09/2022 until 03/11/2023 End: 06-28-2024 OXIMETRY WITH AMBULATION OXIMETRY WITH AMBULATION PFT Routine Chronic obstructive pulmonary disease, unspecified COPD type (HCC) Oxygen dependent 1 Occurrences starting 05/30/2023 until 06/28/2024 [facility] Work Phone: Comment on above: 1 Occurrences starti ng 05/30/2023 until 06/28/2024 Patient Education Coping with He art Failure [facility] Work Phone: Patient referral [facility] Work Phone: End: 03-10-2026 Polysomnogram POLYSOMNOGRAM (PSG) Procedures Routine Daytime sleepiness 1 Occurrences starting 03/10/2025 until 03/10/2026 [facility] Work Phone: Comment on above: 1 Occurrences starti ng 03/10/2025 until 03/10/2026 End: 10-28-2023 Radiologic exam chest 2 views XR CHEST 2V FRONTAL/LAT Radiology Routine COVID Bacterial sinusitis Chronic obstructive pulmonary disease, unspecified COPD type (HCC) 1 Occurrences starting 09/28/2022 until 10/28/2023 [facility] Work Phone: Comment on above: 1 Occurrences starti ng 09/28/2022 until 10/28/2023 Radiologic exam ches t 2 views XR CHEST 2V FRONTAL/LAT Radiology Routine COVID Bacterial sinusitis Chronic obstructive pulmonary disease, unspecified COPD type (HCC) 09/28/2022 1:22 PM EST [facility] Work Phone: End: 10-05-2023 Screening mammography bi 2-view breast inc cad ANUSHA SCREENING Radiology Routine Encounter for screening mammogram for breast cancer 1 Occurrences starting 09/05/2022 until 10/05/2023 [facility] Work Phone: Comment on above: 1 Occurrences starti ng 09/05/2022 until 10/05/2023 End: 03-11-2023 SPIROMETRY BASELINE ONLY SPIROMETRY BASELINE ONLY PFT Routine Chronic obstructive pulmonary disease, unspecified COPD type (HCC) 1 Occurrences starting 02/09/2022 until 03/11/2023 [facility] Work Phone: Comment on above: 1 Occurrences starti ng 02/09/2022 until 03/11/2023 SPIROMETRY BASELINE ONLY SPIROME TRY BASELINE ONLY PFT Routine Chronic obstructive pulmonary disease, unspecified COPD type (HCC) 03/16/2022 8:57 AM EDT [facility] Work Phone: Troponin T.cardiac [Mass/volume] in Serum or Plasma by High sensitivity method [facility] End: 06-10-2026 US Abdomen RUQ US ABD RIGHT UPPER QUADRANT Radiology Routine RUQ pain 1 Occurrences starting 05/11/2025 until 06/10/2026 [facility] Work Phone: Comment on above: 1 Occurrences starti ng 05/11/2025 until 06/10/2026 End: 09-29-2023 Us abdominal real time w/image limited US ABD SPLEEN Radiology Routine Cyst of spleen 1 Occurrences starting 08/30/2022 until 09/29/2023 [facility] Work Phone: Comment on above: 1 Occurrences starti ng 08/30/2022 until 09/29/2023 End: 04-12-2025 XR Chest PA and Lateral XR CHEST 2V FRONTAL/LAT Radiology Routine Chronic obstructive pulmonary disease, unspecified COPD type (HCC) Acute bronchitis with chronic obstructive pulmonary disease (COPD) (HCC) (HCC) 1 Occurrences starting 03/13/2024 until 04/12/2025 [facility] Work Phone: Comment on above: 1 Occurrences starti ng 03/13/2024 until 04/12/2025 XR Chest PA and Lateral [facility] Immunizations Immunization Date Immunization Notes Care Provider Lesvia maldonado 09-28-2024 influenza, high dose seasonal, preservative-free Maricruz Camp MANUFACTURING ENGINEER MACHINING.AIRCRAFT ARMORER Work Phone: [facility] 09-28-2024 respiratory syncytia l virus (RSV) vaccine, bivalent (ABRYSVO) Maricruz Camp MANUFACTURING ENGINEER MACHINING.AIRCRAFT ARMORER Work Phone: [facility] 09-28-2024 influenza virus vacc ine, unspecified formulation Sofi Garcia PA-C Work Phone: [facility] 08-14-2023 influenza (HD-IIV4) vaccine, age 65+ yr, high dose, quadrivalent, PF (FLUZONE HIGH-DOSE) Phuc Martines DO Work Phone: [facility] Work Phone: 08-14-2023 influenza virus vacc ine, unspecified formulation Tressa Gonzalez MD Work Phone: [facility] 02-06-2023 pneumococcal (PCV20) vaccine, 20 valent (PREVNAR 20) Tressa Gonzalez MD Work Phone: [facility] Work Phone: 08-01-2022 influenza, injectabl e, quadrivalent, contains preservative Phuc Martines DO Work Phone: [facility] Work Phone: 08-01-2022 influenza virus vacc ine, unspecified formulation Phuc Martines DO Work Phone: [facility] 08-15-2021 influenza, injectabl e, quadrivalent, preservative free Hodan Christine PA-C Work Phone: [facility] Work Phone: 01-03-2021 COVID-19 vaccine, ag e 12+ yr (PFIZER-BIONTECH - PURPLE TOP) Phuc Martines DO Work Phone: [facility] Work Phone: 12-15-2020 COVID-19 vaccine, ag e 12+ yr (PFIZER-BIONTECH - PURPLE TOP) Phuc Martines DO Work Phone: [facility] Work Phone: 07-06-2020 influenza, injectabl e, quadrivalent, contains preservative Phuc Martines DO Work Phone: [facility] Work Phone: 11-20-2019 zoster vaccine recombinant Phuc Martines DO Work Phone: [facility] Work Phone: 08-04-2019 influenza, injectabl e, quadrivalent, contains preservative Phuc Martines DO Work Phone: [facility] Work Phone: 08-30-2018 influenza, injectabl e, quadrivalent, contains preservative Phuc Martines DO Work Phone: [facility] 05-06-2018 zoster vaccine recombinant Phuc Martines DO Work Phone: [facility] Work Phone: 08-31-2017 influenza, injectabl e, quadrivalent, contains preservative Phuc Martines DO Work Phone: [facility] 05-06-2017 pneumococcal polysaccharide vaccine, 23 valent Phuc Martines DO Work Phone: [facility] 09-28-2016 pneumococcal conjuga te vaccine, 13 valent Phuc Martines DO Work Phone: [facility] 08-18-2016 influenza, injectabl e, quadrivalent, contains preservative Phuc Perezrison DO Work Phone: [facility] 08-01-2016 influenza, injectabl e, quadrivalent, preservative free Dr. Phuc Perezrison DO Work Phone: [facility] 11-09-2015 tetanus toxoid, redu benigno diphtheria toxoid, and acellular pertussis vaccine, adsorbed Phuc Martines DO Work Phone: [facility] Work Phone: 07-28-2015 influenza, injectabl e, quadrivalent, contains preservative Phuc Perezrison DO Work Phone: [facility] Work Phone: 08-05-2014 influenza, seasonal, injectable Phuc Martines DO Work Phone: [facility] 09-05-2013 influenza virus vacc ine, unspecified formulation Phuc Martines DO Work Phone: [facility] Work Phone: 11-12-2012 influenza virus vacc ine, unspecified formulation Phuc Martines DO Work Phone: [facility] 09-03-2011 influenza virus vacc ine, unspecified formulation Phuc Martines DO Work Phone: [facility] Work Phone: 08-15-2010 influenza virus vacc ine, unspecified formulation Phuc Martines DO Work Phone: [facility] Work Phone: 07-28-2009 influenza virus vacc ine, unspecified formulation Phuc Perezrison DO Work Phone: [facility] 07-07-2008 pneumococcal polysaccharide vaccine, 23 valent Phuc Martines DO Work Phone: [facility] 11-19-2005 tetanus toxoid, redu benigno diphtheria toxoid, and acellular pertussis vaccine, adsorbed Phuc Martines DO Work Phone: [facility] Work Phone: Payers Date Payer Category Payer Self-pay 2022 [facility] [employer] SUPPLEMENT [id number] 2022 Medicare [id number] 2022 Medicare [id number] 2021 Unknown [employer] HMO JEAN MARIE [id number] 2021-Present [phone] [address] [facility] [place] [id number] 2017 Unknown [id number] 2014 Unknown [id number] Unknown [id number]. 2.462 Unknown [id number] [id number]. 2.462 Unknown [id number] 2.840.1.189231.3.579. 2.462 Unknown [id number] 2.840.1.277729.3.579. 2.462 Unknown [id number] 2.840.1.591643.3.579. 2.462 Unknown [id number] 2.16840.1.122479.3.579. 2.462 Unknown [id number] 2.16840.1.361938.3.579. 2.462 Unknown [id number] 2.16.840.1.241286.3.579. 2.462 Unknown [id number] 2.16840.1.234342.3.579. 2.462 Unknown [id number] 2.16840.1.236956.3.579. 2.462 Unknown [id number] 2.16.840.1.172934.3.579. 2.462 Unknown [id number] 2.16.840.1.059168.3.579. 2.462 Unknown [id number] 2.16.840.1.546697.3.579. 2.462 Unknown [id number] 2.16.840.1.995439.3.579. 2.462 Unknown [id number] [id number]. 2.462 Unknown [id number]. 2.462 Social History Date Type Detail Facility Start: 06-22-2022 End: 05-13-2025 Tobacco smoking status NHIS Ex-smoker [facility] Work Phone: Start: 1971 End: 12-20-2008 History of tobacco use Current smoker [facility] Start: 1971 End: 12-20-2008 History of tobacco use Cigarette Smoker [facility] Start: 01-30-2022 End: 05-11-2025 Alcohol intake Current drinker of alcohol (finding) [facility] Start: 05-28-2020 End: 09-02-2020 History SDOH Alcohol Frequency [address] [facility] Start: 09-02-2020 End: 10-30-2021 History SDOH Alcohol Std Drinks [address] [facility] Start: 11-14-2019 End: 05-28-2020 History SDOH Social Connections Get Together [address] [facility] Start: 05-28-2020 History SDOH Social Connections Zoroastrian [address] [facility] Start: 11-14-2019 History SDOH Physica l Activity DPW [address] [facility] Start: 11-14-2019 End: 10-30-2021 History SDOH Physical Activity MPS [address] [facility] Start: 11-14-2019 Education [address] [facility] Start: 08-02-2015 End: 06-22-2022 Tobacco Comment Parents smoked in childhood home. Spouse smokes, not in home. [facility] Start: 1955 Sex Assigned At Female C [facility] Start: 12-11-2020 End: 09-28-2022 Exposure to SARS-CoV-2 (event) Not sure [facility] Work Phone: Start: 10-02-2020 End: 06-22-2022 Cigarettes smoked current (pack per day) - Reported [address] [facility] Work Phone: Start: 06-22-2022 End: 06-26-2024 Tobacco use and exposure Smokeless tobacco non-user [facility] Start: 10-02-2020 End: 02-06-2023 Tobacco use panel [facility] Work Phone: Adult Depression Screening Assessment [address] [facility] Work Phone: Start: 05-28-2020 Gender identity Identifies as female gender (finding) [facility] Start: 05-28-2020 Sexual orientation Heterosexual (rainer bello) [facility] How often to you hav e a drink containing alcohol? 4 or more times a week [facility] Work Phone: How many standard drinks containing alcohol do you have on a typical day? 3 or [address] [facility] Work Phone: How often do you hav e 6 or more drinks on 1 occasion? Less than monthly [facility] Work Phone: Do you feel stress - tense, restless, nervous, or anxious, or unable to sleep at night because your mind is troubled all the time - these days [OSQ] Only a little [facility] (I/We) worried joel er (my/our) food would run out before (I/we) got money to buy more. Never true [facility] Work Phone: In the past 12 month s, was there a time when you were not able to pay the mortgage or rent on time? No [facility] Are you now , , , , never or living with a partner? [facility] How often do you hav e 6 or more drinks on 1 occasion? Weekly [facility] How hard is it for y ou to pay for the very basics like food, housing, medical care, and heating Not very hard [facility] Start: 04-15-2017 Heavy Heavy [facility] Start: 04-15-2017 None None [facility] Start: 04-15-2017 Spouse/ Significant Other Spouse/ Significant Other [facility] Start: 04-15-2017 Non-smoker Non-smoker [facility] Start: 02-23-2025 Sex Female (finding) [facility] Goals Date Patient Goal Desired Activity /State Functional Status Date Assessment Result Facility 04-27-2025 Functional status Ambulates [facility] Work Phone: 02-23-2025 Functional status Ambulates [facility] Work Phone: 05-09-2015 Are you deaf, or do you have serious difficulty hearing No 05/09/2015 3:40 PM EDT [place] No [facility] 05-09-2015 Are you blind, or do you have serious difficulty seeing, even when wearing glasses No 05/09/2015 3:40 PM EDT [place] No [facility] 05-09-2015 Do you have serious difficulty walking or climbing stairs No 05/09/2015 3:40 PM EDT [place] No [facility] 05-09-2015 Do you have difficul ty dressing or bathing No 05/09/2015 3:40 PM EDT [place] No [facility] 05-09-2015 Because of a physica l, mental, or emotional condition, do you have difficulty doing errands alone such as visiting a physician's office or shopping No 05/09/2015 3:40 PM EDT [place] No [facility] Mental Status Date Assessment Result Facility 04-27-2025 Cognitive function Voice/Name [facility] Work Phone: 04-23-2025 Cognitive function Voice/Name [facility] Work Phone: 02-23-2025 Cognitive function Voice/Name [facility] Work Phone: 05-09-2015 Because of a physica l, mental, or emotional condition, do you have serious difficulty concentrating, remembering, or making decisions No 05/09/2015 3:40 PM EDT [place] [facility] No [facility] Clinical Notes 05-19-2019 to 05-13-2025 Telephone Encounter - Laine De La Rosa LPN - 05/12/2025 10:07 AM EDTTelephone Encounter - Laine De La Rosa LPN - 05/12/2025 10:07 AM Sofi Montague PA-C - 05/11/2025 11:43 AM EDT Note Date & Type Note Facility 05-13-2025 Radiology Diagnostic study note [facility] Imaging Services [address] [place], [place] [address] CTA Chest W/WO Contrast MR#: [id number] Acct: [id number] Name: RAJENDRA LUCERO Rep #: [id number] : 1955 F 69 From: Leonela Plunkett MD PCP: Dr. Phuc Martines, DO Status: RE G ER Study:CTA Chest W/WO Contrast Date of Exam: 05/13/25 Exam# [id number] Ordering Dr: Yonatan Ivy DO PROCEDURE: CTA CHEST W/WO CONTRAST 05/13/2025 REASON FOR EXAM: SOB TECHNIQUE: CTA CHEST W/WO CONTRAST Multiplanar Sagittal and Coronal images were obtained. 3D post processing was performed CONTRAST: Isovue 370 VOLUME: 100 mL One or more dose reduction techniques were used (e.g., Automated exposure control, adjustment of the mA and/or kV according to patient size, use of iterative reconstruction technique). RADIATION DOSE SUMMARY: CTDlvol: 76.1 mGy DLP: 673 mGycm COMPARISON: CTA chest on 02/20/2025 FINDINGS: Lymph nodes: Left paratracheal node measuring 1.4 cm in short axis (series 2, image 176), unchanged. Heart: Borderline cardiomegaly. No pericardial effusion. Thoracic Aorta: Motion limits evaluation. No evidence of aneurysm or dissection. Calcified atherosclerosis. Pulmonary Vessels: No large central pulmonary emboli are identified. Contrast timing is suboptimal for evaluation of more distal branches. Lungs and Airways: Central airways are clear. Extensive centrilobular and paraseptal emphysema. Biapical scarring. Linear consolidation at the posterior lung bases, upaju-ezrjzgi-utwq-left. Unchanged solid nodules in the right upper lobe measuring 1.2 x 0.4 cm (series 2, image 235), and in the right lower lobe measuring 3 mm (images 110 and 71). Pleura: No effusion Upper Abdomen: Hepatic steatosis. Subcentimeter hypodensity in the left hepaticlobe is too small to characterize. There are hypodense lesions in the spleen measuring up to 2.9 cm in size. Calcification in the right adrenal gland, also unchanged. Aortic atherosclerosis. Bones: Degenerative changes of the thoracic spine. Soft tissues: Unremarkable. CT/CTA Chest W/WO Contrast IMPRESSION: 1. Markedly limited exam, without evidence of central pulmonary embolism. Consider repeating this exam if there is persistent concern for a more distal embolism. 2. Similar appearance of the lungs compared to CT on 02/20/2025, to include solid pulmonary nodules measuring up to 1.2 cm in size. Recommend repeat CT in 6-12 months, and Pulmonology referral if not already performed. 3. Multiple hypodense lesions in the spleen measuring up to 2.[address] abdomen and pelvis for further evaluation, particularly if the patient has a history of malignancy or associated symptoms. Reading Location: [id number] CC: Dr. Phuc Martines, DO; Dr. Linwood Ivy, DO ~ Valuation Consultant: Signed [facility] 05-12-2025 Telephone encounter Note Pt and pt's friend notified of results and instructions with verbalized understanding. Will repeat labs as instructed. Laine De La Rosa LPN [facility] 05-12-2025 Miscellaneous Notes Pt and pt's friend notified of results and instructions with verbalized understanding. Will repeat labs as instructed. Laine De La Rosa LPN Let patient know that her albumin level is low, which could be playing a role on why lasix isn't working as well. Try to increase protein in diet and discuss with cardiology. Her alk phos levels are mildly elevated but liver enzymes are okay. I would like additional labs in 2 weeks for recheck and will also order additional labs to investigate this elevation more. documented in this encounter [facility] 05-12-2025 Telephone encounter Note Let patient know that her albumin level is low, which could be playing a role on why lasix isn't working as well. Try to increase protein in diet and discuss with cardiology. Her alk phos levels are mildly elevated but liver enzymes are okay. I would like additional labs in 2 weeks for recheck and will also order additional labs to investigate this elevation more. [facility] 05-11-2025 History of Present illness Narrative Chief Complaint Patient presents with: Hospital F/U [facility] Rajendra Lucero is a 69 year old female who presents here today for Hospital Discharge Follow up.. Patient was admitted on 04/23/2025 Discharge of 04/27/2024 Dx: atrial flutter with RVR; COPD exacerbation CHF: - Recent hospitalization from 04/23 to 04/27. - Follow-up with cardiology last Saturday; Lasix increased to 60 mg BID for 5 days. - Scheduled to see information coordinator tomorrow. - Started on on Saturday; no improvement in edema noted noted. - Linwood reports minimal urine output despite increased Lasix dosage. - Recent chest X-ray was negative. - Recent labs showed normal potassium levels. - Oxygen settings: 3.5 L at rest, 6 L during exertion. - Recent home oxygen saturation readings: 93% this morning, previously in the 80s. - Linwood reports increased dyspnea and fatigue since hospitalization. - Gained 5 lbs since last Saturday; reports feeling bloated and abdominal discomfort. - History of mild liver enzyme elevation a year ago; recent labs showed normal liver enzymes. Abdominal Discomfort: - Chronic left abdominal discomfort, previously attributed to diverticulitis. - Linwood reports increased frequency and severity of discomfort recently. - History of a cyst found on the spleen during a previous ultrasound. - Linwood reports feeling distended on one side of the abdomen. Last 3 Encounter Wt Readings: Date: Wt: 05/11/2025 117.9 kg (260 lb) 04/23/2025 116.2 kg (256 lb 3.2 oz) 04/20/2025 117 kg (257 lb 15 oz) Past medical history, appointments, medications, allergies reviewed. Previous Medical History PAST MEDICAL HISTORY Diagnosis Date Atrial flutter (HCC) CHF (congestive heart failure) (HCC) Chronic hypoxemic respiratory failure (HCC) COPD (chronic obstructive pulmonary disease) (HCC) 02/03/2010 Coronary artery disease No CA, CHF. No heart cath. Diverticulosis of colon [...] of hands within 1 hour of use Nitrofurantoin Rash Current Medications Current Outpatient Medications on File Prior to Visit Medication Sig dilTIAZem CD (CARDIZEM CD, CARTIA XT) 180 mg 24 hr capsule Take 1 capsule by mouth every 12 hours. atorvastatin (LIPITOR) 40 mg tablet Take 40 mg by mouth once daily. apixaban (ELIQUIS) 5 mg tab(s) Take 5 [...] hours as needed for wheezing/shortness of breath. ysokptmxses-ppubxezkt-qletjncu (TRELEGY ELLIPTA) 200-62.5-25 mcg inhalation powder Inhale [...] Take 1 tablet by mouth once daily. furosemide (LASIX) 40 mg tablet Take 40 mg by mouth two times a day. No current facility-administered medications on file prior to visit. Social History Social History Tobacco Use Smoking [...] No Review of Symptoms REVIEW OF SYSTEMS Constitutional: (+) fatigue, (+) weight gain Respiratory: (+) shortness of breath Gastrointestinal: (+) abdominal bloating, (+) abdominal distension, (+) left abdominal pain, (+) constipation Genitourinary: (+) decreased urine output SEE HPI EXAM: BP 110/70 (BP Site: Left Arm, BP Position: Sitting, BP Cuff Size: Large Adult) Pulse 76 Temp 37.6 C (99.7 F) Resp 20 Wt 117.9 kg (260 lb) SpO2 (!) 85% BMI 44.63 kg/m BP 110/70 (BP Site: Left Arm, BP Position: Sitting, BP Cuff Size: Large Adult) Pulse 76 Temp 37.6 C (99.7 F) Resp 20 Wt 117.9 kg (260 lb) SpO2 (!) 88% BMI 44.63 kg/m General Appearance: Well appearing, alert, in no acute distress, well-hydrated, well nourished. and Morbidly obese. Lungs: diminished breath sounds. Talking in full sentences. Heart: irregular rhythm with normal rate. Abdomen: RUQ tender to deep palpation. BS wnl. Mild distension, no ascites noted.. Health Maintenance List Bone Density Screening Never done Covid-19 Vaccine( season) due on 06/28/2024 Advance Directive Discussion Never done Depression Screening due on 03/13/2025 Anxiety Screening due on 03/13/2025 Influenza Vaccine(1) due on 06/28/2025 DTaP,Tdap,Td Vaccine(3 - Td or Tdap) due on 11/09/2025 Mammogram Screening due on 12/03/2025 Medicare Annual Wellness Visit due on 01/20/2026 Annual PCP Team Chronic Disease Visit due on 05/11/2026 Diabetes Screening due on 01/14/2028 Colorectal Cancer Screening due on 09/10/2028 Lipid Screening due on 01/13/2030 RSV Vaccine Completed Hepatitis C Screening Completed Shingrix Vaccine Completed Pneumococcal Vaccine: 50+ Completed Cervical Cancer Screening Discontinued Data reviewed See hpi Assessment and Plan 1. Hospital discharge follow-up (Z09) - Hospitalized from April 23 to April 27; no criteria met for rehab post-discharge. - Follow-up with information coordinator scheduled for tomorrow. 2. Atrial flutter, unspecified type (HCC) (I48.92) - Follow-up with information coordinator scheduled for tomorrow. 3. Stage 3 severe COPD by GOLD classification ([facility]) (J44.9) - Oxygen saturation levels fluctuating, with recent readings in the 80s; baseline oxygen settings at 3.5 L/min at rest and 6 L/min during exertion. - Advised to monitor oxygen levels closely and report any significant changes. 4. RUQ pain (R10.11) - Ordered right upper quadrant ultrasound to evaluate liver and spleen. - Ordered liver function tests to assess for any abnormalities. 5. Congestive heart failure, unspecified HF chronicity, unspecified heart failure type (HCC) (I50.9) - Recent increase in Lasix to 60 mg BID for 5 days with no significant improvement in symptoms. - Initiated Farxiga; no improvement noted since starting. - Recent chest X-ray negative; recent labs show normal potassium levels. - Advised to follow up with cardiology and pulmonology. - Monitor for signs of decompensation and seek hospital care if symptoms worsen. 6. Essential hypertension (I10) - Continue current antihypertensive regimen. Sofi Garcia PA-C I spent a total of 40 minutes on the date of the service which included preparing to see the patient, zdus-yg-qira patient care, completing clinical documentation, obtaining and/or reviewing separately obtained history, performing a medically appropriate examination, counseling and educating the patient/family/caregiver, ordering medications, tests, or procedures, and communicating results to the patient/family/caregiver. Recording using [employer] software for draft documentation of the visit was discussed with the patient/authorized telesales representative; all questions welcomed and answered. Patient/authorized telesales representative agreed to proceed documented in this encounter [facility] 05-07-2025 Radiology Diagnostic study note [facility] Imaging Services [address] [place], [place] [address] Chest PA and Lateral MR#: [id number] Acct: [id number] Name: RAJENDRA LUCERO Rep #: [id number] : 1955 F 69 From: Dionte Stack MD PCP: Dr. Phuc Martines, Status: RE G CLI Study:Chest PA and Lateral Date of Exam: 05/07/25 Exam# [id number] Ordering Dr: Kim Price BLOWING ENGINEER BLOWING ENGINEER-C PROCEDURE: CHEST PA AND LATERAL 05/07/2025 REASON FOR EXAM: BRAGG TECHNIQUE: CHEST PA AND LATERAL COMPARISON: Prior radiograph dated February 19, 2025. FINDINGS: Hardware: None Heart: Mild cardiomegaly. Mediastinum: Calcification in the of the aortic arch. Lungs: There are increased interstitial markings more pronounced at the lung bases which is unchanged. This most likely represents scarring. Emphysematous changes in the upper lobes more on the rightside. Bones: The bones are unremarkable. RAD/Chest PA and Lateral IMPRESSION: Findings suggestive of pulmonary scarring. Reading Location: [place] [address] CC: LISA Price; Dr. Phuc Martines DO ~ Valuation Consultant: Signed [facility] 04-27-2025 Consult note [facility] 04-27-2025 Discharge summary Note Date/Time April 27, 2025 2:04pm [facility] Medical Records Department [address] [place] [address] Discharge Summary 04/27/25 1113 MR#: [id number] Acct: [id number] Name: RAJENDRA LUCERO Rep #:[id number] : 1955 69 From: George Willis PCP: Dr. Phuc Martines DO Status:AD M IN Location: [id number] Providers Date of Admission: 04/23/25 Date [...] it. She was also told by her waste reclaimer Dr. Bryan Elena to be cautious will [...] uses supplemental oxygen, no PAP therapy. Follows it security consulting director Dr. Tressa gonzalez #11. DVT prophylaxis: Will continue patient [...] 87.0 H, Lymph % (Auto) 5.2 L, Stephens % (Auto) 5.9, Eos % (Auto) 0.9, [...] sodium chloride 0.65 % nasal spray aerosol (Cimarron Saline) 1 spray intranasal BID PRN dry [...] mcg chewable tablet 1,000 mcg PO QDAY waukxcctxi05/03/25 nystatin 100,000 unit/gram topical cream 1 applic [...] baseline and chronic alcohol use. Scheduled with waste reclaimer for possible ablation. Patient was also having [...] [Daily Multi-Vitamin] Tablet 1 tab PO DAILY Cimarron Saline 0.65 % aerosol,spray 1 spray intranasal [...] Health Service Charges/Coding Visit Charges Inpatient E&M: 91463 Disch Hosp >30min 04/27/25 1404 <Electronically signed by George Polanco MD> Cosigner Signature (if applicable): CC: Dr. Phuc Martines DO; Dr. George Polanco MD~ Signed [facility] Work Phone: 1(118) 687-561307-01-2025 Discharge summary [facility] Medical Records Department [address] [place] [address] Discharge Summary 04/27/25 1113 MR#: [id number] Acct: [id number] Name: RAJENDRA LUCERO Rep #:[id number] : 1955 69 From: George Willis PCP: Dr. Phuc Martines DO Status:AD M IN Location: [facility] [id number] Providers Date of Admission: 04/23/25 Date [...] it. She was also told by her waste reclaimer Dr. Bryan Elena to be cautious will [...] uses supplemental oxygen, no PAP therapy. Follows it security consulting director Dr. Tressa gonzalez #11. DVT prophylaxis: Will continue patient [...] 87.0 H, Lymph % (Auto) 5.2 L, Stephens % (Auto) 5.9, Eos % (Auto) 0.9, [...] sodium chloride 0.65 % nasal spray aerosol (Cimarron Saline) 1 spray intranasal BID PRN dry [...] mcg chewable tablet 1,000 mcg PO QDAY ysjarzkase60/03/25 nystatin 100,000 unit/gram topical cream 1 applic [...] baseline and chronic alcohol use. Scheduled with waste reclaimer for possible ablation. Patient was also having [...] [Daily Multi-Vitamin] Tablet 1 tab PO DAILY Cimarron Saline 0.65 % aerosol,spray 1 spray intranasal [...] Health Service Charges/Coding Visit Charges Inpatient E&M: 64190 Disch Hosp >30min 04/27/25 1404 Cosigner Signature (if applicable): CC: Dr. Phuc Martines DO; Dr. George Polanco MD~ Signed [facility]07-01-2025 Hospital Discharge instructionsAdditional Instructions [facility]: [facility]: 1(923) 556-646007-01-2025 Discharge summary Author George Polanco [facility] Note Date/Time April 27, 2025 11:13 am [facility] Medical Records Department [address] [place] [address] [place] [address] Instructions for Home/Discharge Instructions 04/27/25 1112 MR#: [id number] Acct: [id number] Name: RAJENDRA LUCERO Rep #:[id number] : 1955 69 [...] [Daily Multi-Vitamin] Tablet 1 tab PO DAILY Cimarron Saline 0.65 % aerosol,spray 1 spray intranasal [...] MD; Dr. Phuc Martines DO ~ Signed [facility] Work Phone: 1(281) 930-979107-01-2025 Discharge summary [facility] Medical Records Department [address] [place] [address] Instructions for Home/Discharge Instructions 04/27/25 1112 MR#: [id number] Acct: [id number] Name: RAJENDRA LUCERO Bora Rep #:[id number] : 1955 69 From: [...] [Daily Multi-Vitamin] Tablet 1 tab PO DAILY Cimarron Saline 0.65 % aerosol,spray 1 spray intranasal [...] MD; Dr. Phuc Martines DO ~ Signed [facility]07-01-2025 [facility] Medical Records Department [address] [place] [address] Discharge Summary 04/27/25 1113 MR#: [id number] Acct: [id number] Name: RAJENDRA LUCERO Rep #: [id number] : 1955 69 From: George Polanco MD PCP: Dr. Phuc Martines DO Status:ADM IN Location: [place] [address] Providers Date of Admission: 04/23/25 Date of [...] it. She was also told by her waste reclaimer Dr. Bryan Elena to be cautious will [...] uses supplemental oxygen, no PAP therapy. Follows it security consulting director Dr. Tressa gonzalez #11. DVT prophylaxis: Will continue patient [...] H, MCH 30.8, MC (more content not included)...[facility]06-30-2025 Progress note Author George Polanco [facility] Note Date/Time April 26, 2025 3:33 pm [facility] Medical Records Department [address] [place] [address] Progress Note - Hospitalist 04/26/25 1532 MR#: [id number] Acct: [id number] Name: RAJENDRA LUCERO Rep #:[id number] : 1955 69 From: George Willis PCP: Dr. Phuc Martines, DO Status:AD M IN Location: [place] [id number]- 1 Reason for Visit Reason for Visit: [...] 87.0 H, Lymph % (Auto) 5.2 L, Stephens % (Auto) 5.9, Eos % (Auto) 0.9, [...] baseline and chronic alcohol use. Scheduled with waste reclaimer for possible ablation. Patient was also having [...] it. She was also told by her waste reclaimer Dr. Bryan Elena to be cautious will [...] uses supplemental oxygen, no PAP therapy. Follows it security consulting director Dr. Tressa gonzalez #11. DVT prophylaxis: Will continue patient [...] 87.0 H, Lymph % (Auto) 5.2 L, Stephens % (Auto) 5.9, Eos % (Auto) 0.9, [...] Calcium 9.4 Charges/Coding Visit Charges Inpatient E&M: 73282 Subs Hosp L2 04/26/25 1530 <Electronically signed by George Polanco MD> Cosigner Signature (if applicable): CC: ~ Signed [facility] Work Phone: 1(665) 223-522606-30-2025 Progress note [facility] Medical Records Department [address] [place] [address] Progress Note - Hospitalist 04/26/25 153 MR#: [id number] Acct: [id number] Name: RAJENDRA LUCERO Rep #:[id number] : 1955 69 From: George Willis PCP: Dr. Phuc Martines, DO Status:AD M IN Location: [place] [address] Reason for Visit Reason for Visit: Diagnoses [...] 87.0 H, Lymph % (Auto) 5.2 L, Stephens % (Auto) 5.9, Eos % (Auto) 0.9, [...] baseline and chronic alcohol use. Scheduled with waste reclaimer for possible ablation. Patient was also having [...] it. She was also told by her waste reclaimer Dr. Bryan Elena to be cautious will maintain on CIWA protocol, MVI, thiamine and folic acid. #5. Hypertension: Continue home regimen including Lasix, metoprolol, as needed hydralazine #6. Hyperlipidemia: Triglycerides 93, Cholesterol 138, LDL Cholesterol, Calc 81, VLDL Cholesterol 19, HDL Cholesterol 38 L, Cholesterol/HDL Ratio 3.62, TSH 1.970. Started on atorvastatin 20 mg daily. 6/38 discharged on atorvastatin 40 mg daily #7. Morbid Obesity: Weight loss and lifestyle changes encouraged. #8. History of VTE: Patient with history of DVT, PE, continue Eliquis home regimen. #9. She quit smoking about 10 years ago. Total more than 40 pack years of a smoker #10. ROXY: Patient reports that she only uses supplemental oxygen, no PAP therapy. Follows it security consulting director Dr. Tressa gonzalez #11. DVT prophylaxis: Will continue patient [...] 87.0 H, Lymph % (Auto) 5.2 L, Stephens % (Auto) 5.9, Eos % (Auto) 0.9, [...] Calcium 9.4 Charges/Coding Visit Charges Inpatient E&M: 70954 Subs Hosp L2 04/26/25 1533 Cosigner Signature (if applicable): CC: ~ Signed [facility]06-30-2025 Consult note Author Milena Rodas [facility] Note Date/Time April 27, 2025 4:05p [facility] Medical Records Department [address] [place] [address] Counseling Note - Pharmacy 04/26/25 1022 MR#: [id number] Acct: [id number] Name: RAJENDRA LUCERO Rep #:[id number] : 1955 69 From: Milena Rodas PCP: Dr. Phuc Martines, DO Status:AD M IN Y Location: [place] [address] Pharmacy [facility] Counseling Pharmacy Service has performed [...] sodium chloride 0.65 % nasal spray aerosol (Cimarron Saline) 1 spray intranasal BID PRN dry [...] mcg chewable tablet 1,000 mcg PO QDAY gcabhpkutu36/03/25 nystatin 100,000 unit/gram topical cream 1 applic topical BID skin rash 04/23/25 atorvastatin 40 mg tablet 40 mg PO QHS 30 days #30 tabs 04/26/25 diltiazem HCl 180 mg capsule,extended release 24 hr 180 mg PO Q12 30 days #60 caps 04/26/25 04/26/25 1022 <Electronically signed by Milena Rodas> Date _ Mliena Rodas Cosigner Signature (if applicable): Date CC: ~ Signed [facility] Work Phone: 1(929) 735-156006-30-2025 Discharge summary Author George Polanco [facility] Note Date/Time April 26, 2025 9:38 am [facility] Medical Records Department [address] [place] [address] Discharge Summary 04/26/25 0932 MR#: [id number] Acct: [id number] Name: RAJENDRA LUCERO Rep #:[id number] : 1955 69 From: George Willis PCP: Dr. Phuc Martines, DO Status:AD M IN Location: [place] [address]- Providers Date of Admission: 04/23/25 Date of [...] it. She was also told by her waste reclaimer Dr. Bryan Elena to be cautious will [...] uses supplemental oxygen, no PAP therapy. Follows it security consulting director Dr. Tressa gonzalez #11. DVT prophylaxis: Will continue patient [...] 85.7 H, Lymph % (Auto) 6.3 L, Stephens % (Auto) 6.2, Eos % (Auto) 1.0, [...] sodium chloride 0.65 % nasal spray aerosol (Cimarron Saline) 1 spray intranasal BID PRN dry [...] mcg chewable tablet 1,000 mcg PO QDAY fctaavzhwc00/03/25 nystatin 100,000 unit/gram topical cream 1 applic [...] 87.0 H, Lymph % (Auto) 5.2 L, Stephens % (Auto) 5.9, Eos % (Auto) 0.9, [...] baseline and chronic alcohol use. Scheduled with waste reclaimer for possible ablation. Patient was also having [...] 87.0 H, Lymph % (Auto) 5.2 L, Stephens % (Auto) 5.9, Eos % (Auto) 0.9, [...] [Daily Multi-Vitamin] Tablet 1 tab PO DAILY Cimarron Saline 0.65 % aerosol,spray 1 spray intranasal [...] Care Provider] - Within 2 Weeks Irina Elam, PA [Med Staff - Adv Practice Prof] - Within 2 Weeks Disposition Disposition (needs filled in before D/C Order can be placed): Home, Self Care Charges/Coding Visit Charges Inpatient E&M: 35593 Disch Hosp >30min 04/26/25 0938 <Electronically signed by George Polanco MD> Cosigner Signature (if applicable): CC: Dr. Phuc Martines DO; Dr. George Polanco MD~ Signed [facility] Work Phone: 1(158) 820-971806-30-2025 Discharge summary Author George Polanco [facility] Note Date/Time April 26, 2025 9:32 am [facility] Medical Records Department [address] [place] [address] Instructions for Home/Discharge Instructions 04/26/25918 MR#: [id number] Acct: [id number] Name: RAJENDRA LUCERO Rep #:[id number] : 1955 69 [...] [Daily Multi-Vitamin] Tablet 1 tab PO DAILY Cimarron Saline 0.65 % aerosol,spray 1 spray intranasal [...] Dr. Virginia Henriquez MD; Dr. Phuc Martines, DO ~ Signed [facility] Work Phone: 1([phone]) 665-410306-30-2025 Discharge summary [facility] Medical Records Department [address] [place] [address] Discharge Summary 04/26/25931 MR#: [id number] Acct: [id number] Name: RAJENDRA LUCERO Rep #:[id number] : 1955 69 From: George Willis PCP: Dr. Phuc Martines, DO Status:AD M IN Location: [place] [address]- 1 Providers Date of Admission: 04/23/25 Date [...] it. She was also told by her waste reclaimer Dr. Bryan Elena to be cautious will [...] uses supplemental oxygen, no PAP therapy. Follows it security consulting director Dr. Tressa gonzalez #11. DVT prophylaxis: Will continue patient [...] 85.7 H, Lymph % (Auto) 6.3 L, Stephens % (Auto) 6.2, Eos % (Auto) 1.0, [...] sodium chloride 0.65 % nasal spray aerosol (Cimarron Saline) 1 spray intranasal BID PRN dry [...] mcg chewable tablet 1,000 mcg PO QDAY pswsocjbdi54/03/25 nystatin 100,000 unit/gram topical cream 1 applic [...] 87.0 H, Lymph % (Auto) 5.2 L, Stephens % (Auto) 5.9, Eos % (Auto) 0.9, [...] baseline and chronic alcohol use. Scheduled with waste reclaimer for possible ablation. Patient was also having [...] 87.0 H, Lymph % (Auto) 5.2 L, Stephens % (Auto) 5.9, Eos % (Auto) 0.9, [...] [Daily Multi-Vitamin] Tablet 1 tab PO DAILY Cimarron Saline 0.65 % aerosol,spray 1 spray intranasal [...] Self Care Charges/Coding Visit Charges Inpatient E&M: 17713 Disch Hosp >30min 04/26/25 0938 Cosigner Signature (if applicable): CC: Dr. Phuc Martines DO; Dr. George Polanco MD~ Signed [facility]06-30-2025 Discharge summary [facility] Medical Records Department [address] [place] [address] Instructions for Home/Discharge Instructions 04/26/2519 MR#: [id number] Acct: [id number] Name: RAJENDRA LUCERO Rep #:[id number] : 1955 69 [...] [Daily Multi-Vitamin] Tablet 1 tab PO DAILY Cimarron Saline 0.65 % aerosol,spray 1 spray intranasal [...] MD; Dr. Phuc Martines DO ~ Signed [facility]06-30-2025 [facility] Medical Records Department [address] [place] [address] Discharge Summary 04/26/2532 MR#: [id number] Acct: [id number] Name: RAJENDRA LUCERO Rep #: [id number] : 1955 69 From: George Polanco MD PCP: Dr. Phuc Martines DO Status:ADM IN Location: [place] [address] Providers Date of Admission: 04/23/25 Date of [...] it. She was also told by her waste reclaimer Dr. Bryan Elena to be cautious will [...] uses supplemental oxygen, no PAP therapy. Follows it security consulting director Dr. Tressa gonzalez #11. DVT prophylaxis: Will continue patient [...] Gran % (Auto) 0 (more content not included)...[facility] 04-25-2025 Progress note Author George Polanco [facility] Note Date/Time April 25, 2025 12:0 3pm [facility] Medical Records Department [address] [place] [address] Progress Note - Hospitalist 04/25/25902 MR#: [id number] Acct: [id number] Name: RAJENDRA LUCERO Rep #:[id number] : 1955 69 From: George Willis PCP: Dr. Phuc Martines, DO Status:AD M IN Location: [place] [address]- 1 Reason for Visit Reason for Visit: [...] 85.7 H, Lymph % (Auto) 6.3 L, Stephens % (Auto) 6.2, Eos % (Auto) 1.0, [...] baseline and chronic alcohol use. Scheduled with waste reclaimer for possible ablation. Patient was also having [...] it. She was also told by her waste reclaimer Dr. Bryan Elena to be cautious will [...] uses supplemental oxygen, no PAP therapy. Follows it security consulting director Dr. Tressa gonzalez #11. DVT prophylaxis: Will continue patient [...] 85.7 H, Lymph % (Auto) 6.3 L, Stephens % (Auto) 6.2, Eos % (Auto) 1.0, [...] TSH 1.970 Charges/Coding Visit Charges Inpatient E&M: 52198 Subs Hosp L2 04/25/25 1202 <Electronically signed by George Polanco MD> Cosigner Signature (if applicable): CC: ~ Signed [facility] Work Phone: 1(498) 378-952906-29-2025 Progress note [facility] Medical Records Department [address] [place] [address] Progress Note - Hospitalist 04/25/25 0903 MR#: [id number] Acct: [id number] Name: RAJENDRA LUCERO Rep #:[id number] : 1955 69 From: George Willis PCP: Dr. Phuc Martines, DO Status:AD M IN Location: [place] [address] Reason for Visit Reason for Visit: Diagnoses [...] 85.7 H, Lymph % (Auto) 6.3 L, Stephens % (Auto) 6.2, Eos % (Auto) 1.0, [...] baseline and chronic alcohol use. Scheduled with waste reclaimer for possible ablation. Patient was also having [...] it. She was also told by her waste reclaimer Dr. Bryan Elena to be cautious will [...] uses supplemental oxygen, no PAP therapy. Follows it security consulting director Dr. Tressa gonzalez #11. DVT prophylaxis: Will continue patient [...] 85.7 H, Lymph % (Auto) 6.3 L, Stephens % (Auto) 6.2, Eos % (Auto) 1.0, [...] TSH 1.970 Charges/Coding Visit Charges Inpatient E&M: 33635 Subs Hosp L2 04/25/25 1203 Cosigner Signature (if applicable): CC: ~ Signed [facility]06-28-2025 Progress note Author George Polanco [facility] Note Date/Time April 24, 2025 1:22 pm [facility] Medical Records Department [address] [place] [address] Progress Note - Hospitalist 04/24/25 0810 MR#: [id number] Acct: [id number] Name: RAJENDRA LUCERO Rep #:[id number] : 1955 69 From: George Willis PCP: Dr. Phuc Martines, DO Status:AD M IN Location: [place] [address] Reason for Visit Reason for Visit: Diagnoses [...] 83.8 H, Lymph % (Auto) 7.9 L, Stephens % (Auto) 6.6, Eos % (Auto) 0.8, [...] Clarity Clear, Urine pH 6.0, Ur Specific Cutler 1.015, Urine Protein 30 H, Urine Glucose [...] 83.2 H, Lymph % (Auto) 6.8 L, Stephens % (Auto) 8.0, Eos % (Auto) 1.3, [...] IMPRESSION: Cardiomegaly with mild congestion. Reading Location: [facility] Brain CT 04/23/25 18:04 IMPRESSION: 1. No acute intracranial hemorrhage, midline shift or mass effect. If symptoms persist, further evaluation with MRI is recommended. 2. Mild small vessel ischemic/degenerative changes. Reading Location: [facility] Physical Exam Narrative Seen and examined. Patient admitted for SOB and, rapid heart rate, new onset atrial flutter, COPD on 3 to 6 L of oxygen at baseline and chronic alcohol use. Scheduled with waste reclaimer for possible ablation. Patient was also having [...] it. She was also told by her waste reclaimer Dr. Bryan Elena to be cautious will [...] uses supplemental oxygen, no PAP therapy. Follows it security consulting director Dr. Tressa gonzalez #11. DVT prophylaxis: Will continue patient [...] 83.8 H, Lymph % (Auto) 7.9 L, Stephens % (Auto) 6.6, Eos % (Auto) 0.8, [...] Clarity Clear, Urine pH 6.0, Ur Specific Cutler 1.015, Urine Protein 30 H, Urine Glucose [...] 83.2 H, Lymph % (Auto) 6.8 L, Stephens % (Auto) 8.0, Eos % (Auto) 1.3, [...] TSH 1.970 Charges/Coding Visit Charges Inpatient E&M: 26932 Subs Hosp L2 04/24/25 1321 <Electronically signed by George Polanco MD> Cosigner Signature (if applicable): CC: ~ Signed ADDENDUM by Dr. George Polanco MD on 04/24/25 at 1322 Addendum Started on atorvastatin 40 mg daily at bedtime 04/24/25 1322<Electronically signed by George Polanco MD> Cosigner Signature (if applicable): cc: ~* Signed [facility] Work Phone: 1(706) 319-630706-28-2025 Progress note [facility] Medical Records Department [address] [place] [address] Progress Note - Hospitalist 04/24/25 08 MR#: [id number] Acct: [id number] Name: RAJENDRA LUCERO Rep #:[id number] : 1955 69 From: George Willis PCP: Dr. Phuc Martines, DO Status:AD M IN Location: [place] [address]- 1 Reason for Visit Reason for Visit: [...] 83.8 H, Lymph % (Auto) 7.9 L, Stephens % (Auto) 6.6, Eos % (Auto) 0.8, [...] Clarity Clear, Urine pH 6.0, Ur Specific Cutler 1.015, Urine Protein 30 H, Urine Glucose [...] 83.2 H, Lymph % (Auto) 6.8 L, Stephens % (Auto) 8.0, Eos % (Auto) 1.3, [...] IMPRESSION: Cardiomegaly with mild congestion. Reading Location: [facility] Brain CT 04/23/25 18:04 IMPRESSION: 1. No acute intracranial hemorrhage, midline shift or mass effect. If symptoms persist, further evaluation with MRI is recommended. 2. Mild small vessel ischemic/degenerative changes. Reading Location: [facility] Physical Exam Narrative Seen and examined. Patient admitted for SOB and, rapid heart rate, new onset atrial flutter, COPD on 3 to 6 L of oxygen at baseline and chronic alcohol use. Scheduled with waste reclaimer for possible ablation. Patient was also having [...] it. She was also told by her waste reclaimer Dr. Bryan Elena to be cautious will [...] uses supplemental oxygen, no PAP therapy. Follows it security consulting director Dr. Tressa gonzalez #11. DVT prophylaxis: Will continue patient [...] 83.8 H, Lymph % (Auto) 7.9 L, Stephens % (Auto) 6.6, Eos % (Auto) 0.8, [...] Clarity Clear, Urine pH 6.0, Ur Specific Cutler 1.015, Urine Protein 30 H, Urine Glucose [...] 83.2 H, Lymph % (Auto) 6.8 L, Stephens % (Auto) 8.0, Eos % (Auto) 1.3, [...] TSH 1.970 Charges/Coding Visit Charges Inpatient E&M: 85861 Subs Hosp L2 04/24/25 1321 Cosigner Signature (if applicable): CC: ~ Signed ADDENDUM by Dr. George Polanco MD on 04/24/25 at 1322 Addendum Started on atorvastatin 40 mg daily at bedtime 04/24/25 1322 Cosigner Signature (if applicable): cc: ~* Signed [facility]06-28-2025 Discharge summary Author Cele Morgan [facility] Note Date/Time April 24, 2025 12:0 0am [facility] Medical Records Department [address] [place] [address] Emergency Department Summary 04/23/25 MR#: [id number] Acct: [id number] Name: RAJENDRA LUCERO Rep #:[id number] : 1955 69 From: Cele LYNN PCP: Dr. Phuc Martines, DO Status:AD M [facility] <LEAH Cooley - Last Filed: [...] <LEAH Cooley - Last Filed: 04/23/25 21:52> [facility] Medical History Pulmonary nodule Atrial flutter Shortness [...] BID PRN dry 02/19/25 Unknown History aerosol (Cimarron Saline) nasal passages triamcinolone acetonide 0.5 % [...] Nasal Cannula Oxygen Flow Rate (L/min) 3.5 [facility] <LEAH Cooley - Last Filed: 04/23/25 21:52> [facility] Narrative Medical decision making narrative: Patient presenting [...] 83.8 H Lymph % (Auto) 7.9 L Stephens % (Auto) 6.6 Eos % (Auto) 0.8 [...] Clarity Clear Urine pH 6.0 Ur Specific Cutler 1.015 Urine Protein 30 H Urine Glucose [...] IMPRESSION: Cardiomegaly with mild congestion. Reading Location: [facility] Brain CT 04/23/25 18:04 IMPRESSION: 1. No acute intracranial hemorrhage, midline shift or mass effect. If symptoms persist, further evaluation with MRI is recommended. 2. Mild small vessel ischemic/degenerative changes. Reading Location: [facility] EKG Initial EKG: Comments: 129 bpm, atrial flutter, no ST elevation, interpreted by attending ED physician <Dr. Clay Hager MD - Last Filed: 04/23/25 20:27> [facility] MDM Narrative Medical decision making narrative: Patient [...] 83.8 H Lymph % (Auto) 7.9 L Stephens % (Auto) 6.6 Eos % (Auto) 0.8 [...] Clarity Clear Urine pH 6.0 Ur Specific Cutler 1.015 Urine Protein 30 H Urine Glucose [...] IMPRESSION: Cardiomegaly with mild congestion. Reading Location: [facility] Brain CT 04/23/25 18:04 IMPRESSION: 1. No acute intracranial hemorrhage, midline shift or mass effect. If symptoms persist, further evaluation with MRI is recommended. 2. Mild small vessel ischemic/degenerative changes. Reading Location: [facility] Discharge Plan Triage Chief Complaint: Palpitations ED [...] [Daily Multi-Vitamin] Tablet 1 tab PO DAILY Cimarron Saline 0.65 % aerosol,spray 1 spray intranasal [...] DO [Primary Care Provider] - Print Language: Lebanese Disposition Disposition: Acute Care Hospital [facility] What to do if you have Problems For any increased pain, shortness of breath, bleeding, nausea or vomiting, chestpain, or any unexpected problems, contact your Primary Care Provider. Call [facility] ([phone]) or report to the closest Emergency Room. Call 911 if necessary. 04/23/252151 <Electronically signed by Cele LYNN> Cosigner Signature (if applicable): 04/24/25 0000 <Electronically signed by Clay Hager MD> CC: Dr. Phuc Martines, DO ~ Signed [facility] Work Phone: 1(909) 875-182606-28-2025 History and physical note Author Virginia Henriquez [facility] Note Date/Time April 23, 2025 10:1 5pm [facility] Medical Records Department [address] [place] [address] H&P Exam - Hospitalist 04/23/252148 MR#: [id number] Acct: [id number] Name: RAJENDRA LUCERO Rep #:[id number] : 1955 69 From: Virginia Henriquez MD PCP: Dr. Phuc Martines, Status:AD M IN Location: [facility] [id number]- 1 HPI - General General Date of [...] abuse recently cut back [facility] with [facility] of [...] 1 and placed on a diltiazem drip. [facility] Medical History (Updated 04/23/25 @ 22:15 [...] BID PRN dry 02/19/25 Unknown History aerosol (Cimarron Saline) nasal passages triamcinolone acetonide 0.5 % [...] 83.8 H, Lymph % (Auto) 7.9 L, Stephens % (Auto) 6.6, Eos % (Auto) 0.8, [...] Clarity Clear, Urine pH 6.0, Ur Specific Cutler 1.015, Urine Protein 30 H, Urine Glucose [...] IMPRESSION: Cardiomegaly with mild congestion. Reading Location: [facility] Brain CT 04/23/25 18:04 IMPRESSION: 1. No acute intracranial hemorrhage, midline shift or mass effect. If symptoms persist, further evaluation with MRI is recommended. 2. Mild small vessel ischemic/degenerative changes. Reading Location: [facility] Assessment & Plan Assessment/Plan (1) Atrial flutter with rapid ventricular response: PLAN: Plan The patient is a 69 y/o F w/ PMHx: Hx VTE (DVT, PE) on eliquis, Morbid obesity, PAF/Flutter, HTN, HLD, COPD w/ Chronic Hypoxic Respiratory Failure (3L-6L NC), Former tobacco use, ROXY not on PAP therapy, EtOH abuse recently cutting back whopresents to [facility] ED on 04/23/2025 with history [...] increase her alcohol not significantly but her waste reclaimer Dr. Elena did discuss this with her [...] Time: 16minutes. Charges/Coding Visit Charges Inpatient E&M: 06829 Init Hosp L3 Procedures Hospitalists Procedures: 61594 Advncd Care Plan 30 Min 04/23/25 9552 <Electronically signed by Virginia Henriquez MD> Cosigner Signature (if applicable): CC: Dr. Virginia Henriquez MD; Dr. Phuc Martines, DO~ Signed [facility] Work Phone: [phone]) 109-504406-28-2025 Discharge summary [facility] Medical Records Department [address] [place] [address] Emergency Department Summary 04/23/25 MR#: [id number] Acct: [id number] Name: RAJENDRA LUCERO Rep #:[id number] : 1955 69 From: Cele LYNN PCP: Dr. Phuc Martines, DO Status:AD M IN Location: [place] [address] HPI History of Present Illness Chief Complaint: [...] chest pain, abdominal pain, nausea, and vomiting. [facility] Medical History Pulmonary nodule Atrial flutter Shortness [...] BID PRN dry 02/19/25 Unknown History aerosol (Cimarron Saline) nasal passages triamcinolone acetonide 0.5 % [...] 83.8 H Lymph % (Auto) 7.9 L Stephens % (Auto) 6.6 Eos % (Auto) 0.8 [...] Clarity Clear Urine pH 6.0 Ur Specific Cutler 1.015 Urine Protein 30 H Urine Glucose [...] IMPRESSION: Cardiomegaly with mild congestion. Reading Location: [facility] Brain CT 04/23/25 18:04 IMPRESSION: 1. No acute intracranial hemorrhage, midline shift or mass effect. If symptoms persist, further evaluation with MRI is recommended. 2. Mild small vessel ischemic/degenerative changes. Reading Location: [facility] EKG Initial EKG: Comments: 129 bpm, atrial flutter, no ST elevation, interpreted by attending ED physician YAMILETH MDM Narrative Medical decision making narrative: Patient presenting today after being sent over by her PCPs office due to concerns for tachycardia. She has a history of A-fib/flutter on Eliquis. She is compliant with her medications. She has chronic dyspnea due to her history of COPD but has been feeling more dyspneic recently. She had a echo in 2023 that showed an EF of 60%. Cardiac [...] 83.8 H Lymph % (Auto) 7.9 L Stephens % (Auto) 6.6 Eos % (Auto) 0.8 [...] Clarity Clear Urine pH 6.0 Ur Specific Cutler 1.015 Urine Protein 30 H Urine Glucose [...] IMPRESSION: Cardiomegaly with mild congestion. Reading Location: [facility] Brain CT 04/23/25 18:04 IMPRESSION: 1. No acute intracranial hemorrhage, midline shift or mass effect. If symptoms persist, further evaluation with MRI is recommended. 2. Mild small vessel ischemic/degenerative changes. Reading Location: [facility] Discharge Plan Triage Chief Complaint: Palpitations ED [...] [Daily Multi-Vitamin] Tablet 1 tab PO DAILY Cimarron Saline 0.65 % aerosol,spray 1 spray intranasal [...] DO [Primary Care Provider] - Print Language: Lebanese Disposition Disposition: Acute Care Hospital [facility] What to do if you have Problems For any increased pain, shortness of breath, bleeding, nausea or vomiting, chestpain, or any unexpected problems, contact your Primary Care Provider. Call [facility] ([phone]) or report tothe closest Emergency Room. Call 911 if necessary. 04/23/252151 Cosigner Signature (if applicable): 04/24/25 0000 CC: Dr. Phuc Martines DO ~ Signed [facility]06-27-2025 History and physical note [facility] Medical Records Department [address] [place] [address] H&P Exam - Hospitalist 04/23/252148 MR#: [id number] Acct: [id number] Name: RAJENDRA LUCERO Rep #:[id number] : 1955 69 From: Virginia Henriquez MD PCP: Dr. Phuc Martines DO Status:AD M IN Location: [place] [address] HPI - General General Date of Admission: [...] abuse recently cut back [facility] with [facility] of [...] 1 and placed on a diltiazem drip. [facility] Medical History (Updated 04/23/25 @ 22:15 [...] BID PRN dry 02/19/25 Unknown History aerosol (Cimarron Saline) nasal passages triamcinolone acetonide 0.5 % [...] 83.8 H, Lymph % (Auto) 7.9 L, Stephens % (Auto) 6.6, Eos % (Auto) 0.8, [...] Clarity Clear, Urine pH 6.0, Ur Specific Cutler 1.015, Urine Protein 30 H, Urine Glucose [...] IMPRESSION: Cardiomegaly with mild congestion. Reading Location: [facility] Brain CT 04/23/25 18:04 IMPRESSION: 1. No acute intracranial hemorrhage, midline shift or mass effect. If symptoms persist, further evaluation with MRI is recommended. 2. Mild small vessel ischemic/degenerative changes. Reading Location: [facility] Assessment & Plan Assessment/Plan (1) Atrial flutter with rapid ventricular response: PLAN: Plan The patient is a 69 y/o F w/ PMHx: Hx VTE (DVT, PE) on eliquis, Morbid obesity, PAF/Flutter, HTN, HLD, COPD w/ Chronic Hypoxic Respiratory Failure (3L-6L NC), Former tobacco use, ROXY not on PAP therapy, EtOH abuse recently cutting back whopresents to [facility] ED on 04/23/2025 with history [...] transition once appropriate back to home BB thera py. If not responding may require Cardiology involvement. [...] increase her alcohol not significantly but her waste reclaimer Dr. Elena did discuss this with her [...] Time: 16minutes. Charges/Coding Visit Charges Inpatient E&M: 50781 Init Hosp L3 Procedures Hospitalists Procedures: 38719 Advncd Care Plan 30 Min 04/23/25 2215 Cosigner Signature (if applicable): CC: Dr. Virginia Henriquez MD; Dr. Phuc Martines DO~ Signed [facility]06-27-2025 Radiology Diagnostic study note [facility] Imaging Services [address] [place] [address] [id number] Brain/Head without Contrast MR#: [id number] Acct: [id number] Name: RAJENDRA LUCERO Rep #: [id number] : 1955 F 69 From: Bev Drummond MD PCP: Dr. Phuc Martines DO Status: RE G ER Study:Brain/Head without Contrast Date of Exa m: 04/23/25 Exam# [id number] Ordering Dr: Krishan Hager MD EXAM: CT [...] Mild small vessel ischemic/degenerative changes. Reading Location: [facility] CC: Dr. Clay Hager MD; Dr. Phuc Martines DO ~ Valuation Consultant: Signed [facility]06-27-2025 Radiology Diagnostic study note [facility] Imaging Services [address] [place] [address] [id number] Chest PA and Lateral MR#: [id number] Acct: [id number] Name: RAJENDRA LUCERO Rep #: [id number] : 1955 F 69 From: Bev Drummond MD PCP: Dr. Phuc Martines DO Status: RE G ER Study:Chest PA and Lateral Date of Exam: 04/23/25 Exam# [id number] Ordering Dr: Cele Garcia EXAM: XR Chest, 2 Views CLINICAL INDICATION: SOB TECHNIQUE: Frontal and lateral views of the chest. COMPARISON: No relevant prior studies available. FINDINGS: LUNGS AND PLEURAL SPACES: See below. HEART: Cardiomegaly with mild congestion. MEDIASTINUM: Unremarkable. Normal mediastinal contour. BONES/JOINTS: Unremarkable. No acute fracture. RAD/Chest PA and Lateral IMPRESSION: Cardiomegaly with mild congestion. Reading Location: [facility] CC: Dr. Phuc Martines DO; LEAH Cooley ~ Valuation Consultant: Signed [facility]06-27-2025 Instructions* Patient Instructions* Tyra Carson APRN.[facility] - 04/23/2025 3:31 PM EDT Sent patient to ER documented in this encounterMer[facility]. [facility]06-[facility]-2025 NoteHNO ID: [id number] Author: TYRA CARSON APRN.ELVIA Service: ? Author Type: Nurse Practitioner Type: Progress Notes Filed: 04/23/2025 16:30 Note Text: This is a 69 year old female who presents today with: Increased confusion Express care follow up Subjective Rajendra Lucero is a 69 year old female. [...] week for further evaluation. and Recording using [employer] software for draft documentation of the visit was discussed with the patient/authorized telesales representative; all questions welcomed and answered. Patient/authorized telesales representative agreed to proceed HISTORY OF PRESENT ILLNESS: Linwood was in the hospital in January for new onset of atrial flutter. She was initiated on eliquis and metoprolol and now being seen by cardiology. She was referred to a [facility] cardio electro doc and is in the [...] failure (HCC) COPD (chronic obstructive pulmonary disease) ([facility]) 02/03/2010 Coronary artery disease No CA, CHF. No heart cath. Diverticulosis of colon [...] Sig nitrofurantoin monohydrate a (more content not included)...[facility]06-27-[facility] History of Present illness Narrative* Tyra Carson, MANUFACTURING ENGINEER MACHINING.AIRCRAFT ARMORER - 04/23/2025 2:49 PM EDT This is a 69 year old female who presents today with: Increased confusion Express care follow up Subjective Rajendra Lucero is a 69 year old female. [...] week for further evaluation. and Recording using [employer] software for draft documentation of the visit was discussed with thepatient/authorized telesales representative; all questions welcomed and answered. Patient/authorized telesales representative agreed to proceed HISTORY OF PRESENT ILLNESS: Linwood was in the hospital in January for new onset of atrial flutter. She was initiated on eliquis and metoprolol and now being seen by cardiology. She was referred to a [facility] cardio electro doc and isin the process of setting up to have [...] Atrial flutter (HCC) CHF (congestive heart failure) ([facility]) Chronic hypoxemic respiratory failure (HCC) COPD (chronic obstructive pulmonary disease) ([facility]) 02/03/2010 Coronary artery disease No CA, CHF. No heart cath. Diverticulosis of colon [...] hours as needed for wheezing/shortness of breath. xqshewnqvrz-zxeeosvrd-fvmyxyjm (TRELEGY ELLIPTA) 200-62.5-25 mcg inhalation powder Inhale [...] her presentation/symptoms/assessment , she was sent to [facility] ER for further evaluation. Her daughter was coming to pick her up. Report was called to [facility] ER physician/hospitalist. Discussed treatment plan and patient voices understanding. Patient's questions answered appropriately. Medications and potential side effects were discussed and patient voices understanding. Medical Decision Making: Problems: High: Chronic illness with severe change Risk: High: Decision on hospitalization Medical Decision Making Level: 5 - High Return to the office as scheduled or as needed for worsening/no improvement. Tyra Carson APRN.AIRCRAFT ARMORER Recording using ambient IActionable software for draft documentation of the visit was discussed with the patient/authorized telesales representative; all questions welcomed and answered. Patient/authorized telesales representative agreed to proceed documented in this encounterMer[facility]. [facility]06-26-2025 Telephone encounter Note * Telephone Encounter - Sandra Landis MA - 04/22/2025 8:29 AM EDT Pt was notified of the results. Pt verbalized understanding. Sandra Landis MA [facility]06-26-2025 Miscellaneous Notes* Telephone Encounter - Sandra [...] is helping with symptoms. documented in this encounterMercy [facility] St. [facility]06-26-2025 Telephone encounter Note * Telephone Encounter [...] prescribed if it is helping with symptoms. [facility] Work Phone: 1(165) 459-296606-24-2025 Note* Addendum Note - Milena Chang LPN - 04/20/2025 11:12 AM EDTAddended by: MILENA CHANG on: 04/20/2025 11:12 AM Modules accepted: Orders [facility]06-24-2025 Miscellaneous Notes* Addendum Note - Milena Chang LPN - 04/20/2025 11:12 AM EDTAddended by: MILENA CHANG on: 04/20/2025 11:12 AM Modules accepted: Orders documented in this encounterMercy Health St. [facility]06-24-2025 NoteHNO ID: [id number] Author: DAMON EUGENE APRN.AIRCRAFT ARMORER Service: ? Author Type: Nurse Practitioner Type: Progress Notes Filed: 04/20/2025 10:23 Note Text: [facility] Subjective Rajendra Lucero is a 69 year old female. [...] for further evaluation. and Recording using ambient IActionable software for draft documentation of the visit was discussed with the patient/authorized telesales representative; all questions welcomed and answered. Patient/authorized telesales representative agreed to proceed MDM ProceduresMer[facility]06-24-2025 History of Present illness Narrative* Damon Eugene APRN.AIRCRAFT ARMORER - 04/20/2025 10:23 AM EDT [facility] Subjective Rajendra Lucero is a 69 year old female. [...] of the visit was discussed with thepatient/authorized telesales representative; all questions welcomed and answered. Patient/authorized telesales representative agreed to proceed MDM Procedures documented in this encounterMercy Health St. [facility]06-04-2025 NoteHNO ID: [id number] Author: JANETTE DAMON APRN.ELVIA Service: ? Author Type: Nurse Practitioner Type: Progress Notes Filed: 03/31/2025 13:06 Note Text: 03/31/2025 Patient presents with: BP Check: Had appointment with cardiology yesterday; [facility] Dr. Elena Recording using ambient AI software for draft documentation of the visit was discussed with the patient/authorized telesales representative; all questions welcomed and answered. Patient/authorized telesales representative agreed to proceed SUBJECTIVE: This is a 69 year old that is here today for Above Complaints.. Atrial Flutter: - Recent consultation with Dr. Elena, who referred her to Dr. Marcos Santos, an information coordinator, for potential ablation. - Dr. Elena indicated [...] disease) (HCC) 02/03/2010 Coronary artery disease No CA, CHF. No heart cath. Diverticulosis of colon [...] hours as needed for wheezing/shortness of breath. qnhvqdxklax-bwvdeyoha-nkcajqli (TRELEGY ELLIPTA) 200-62.5-25 mcg inhalation powder Inhale [...] 03/01/2026 Diabetes Screening du (more content not included)...[facility] 03-31-2025 History of Present illness Narrative* Janette Damon APRN.AIRCRAFT ARMORER - 03/31/2025 12:50 PM EDT 03/31/2025 Patient presents with: BP Check: Had appointment with cardiology yesterday; [facility] Dr. Elena Recording using Chip[employer]ision [employer] software for draft documentation of the visit was discussed with the patient/authorized telesales representative; all questions welcomed and answered. Patient/authorized telesales representative agreed to proceed SUBJECTIVE: This is a 69 year old that is here today for Above Complaints.. Atrial Flutter: - Recent consultation with Dr. Elena, who referred her to Dr. Marcos Santos, an information coordinator, for potential ablation. - Dr. Elena indicated [...] Atrial flutter (HCC) CHF (congestive heart failure) ([facility]) Chronic hypoxemic respiratory failure (HCC) COPD (chronic obstructive pulmonary disease) ([facility]) 02/03/2010 Coronary artery disease No CA, CHF. No heart cath. Diverticulosis of colon [...] hours as needed for wheezing/shortness of breath. kginfqgjpzm-jaxtbqsey-rfytbjld (TRELEGY ELLIPTA) 200-62.5-25 mcg inhalation powder Inhale [...] (I48.92) - Referral to Dr. Marcos Santos, information coordinator, for potential ablation procedure. - Patient understands [...] Level: 3 - Low documented in this encounterMercy Health St. [facility]05-14-2025 Instructions* Patient Instructions* Rajendra Goodman APRN.CNP - 03/10/2025 1:34 PM EDT [phone] [facility] sleep disorders, [place]. documented in this encounterMercy Health St. [facility]05-14-2025 History of Present illness Narrative* Rajendra Goodman APRN.CNP - 03/10/2025 1:00 PM EDT Images from the original note were not included. Pulmonary Medicine Patients name: Rajendra Palumbo PCP: Phuc Martines DO CC: concern for ROXY HPI: Rajendra Lucero is a 69 year old female former 12-wcbc-zitm smoker, quitting in 2008 with PMH significant [...] that time. She was just hospitalized at [facility] 02/19 - 02/23 for SOB/leg [...] failure (HCC) COPD (chronic obstructive pulmonary disease) ([facility]) 02/03/2010 Coronary artery disease No CA, CHF. No heart cath. Diverticulosis of colon [...] ELLIPTA 200-62.5-25 mcg inhalation powder Generic drug: nictatabhll-yekyvvvjh-gpzliirz Inhale 1 Puff as instructed once daily. [...] Recommendations: Followup LDCT in 6 months Reference: [employer]. Lung CT Screening Reporting and Data System (Lung-RADS). Available at: http://www.acr.org/Quality-Safety/Resources/LungRADS Valuation Consultant: PAT Transcribe Date/Time: Jan 25 2025 11:45A Dictated by : VIDAL PULLIAM MD This examination was interpreted and the report reviewed and electronically signed by: VIDAL PULLIAM MD on Jan 25 2025 11:51AM EST Results-Findings * * *Final Report* * * DATE OF EXAM: Jan 25 2025 11:06AM [facility] 0561 - CT LUNG FOLLOWUP [facility] / PROCEDURE REASON: Lung nodule, < 6mm, high cancer risk * * * * Physician Interpretation * * * * EXAMINATION: CT LUNG FOLLOWUP WO [facility] CLINICAL HISTORY: Lung nodules Technique: Spiral CT acquisition of the chest from the thoracic inlet to the upper abdomen without contrast. MQ: CTLCS_6 Followup LDCT Patient characteristics: * Bfdd-mv-Mgdla: 1955; Age at exam: 69 years * Gender: Female * Lung Disease: Asymptomatic (no signs or symptoms of lung disease) * Number of Pack Years: 38 * Current smoker (=0) or Number of Years since Quit: 15 * Ordering provider and NPI: MARICRUZ CAMP [id number] * Interpreting radiologist and NPI: Nicole [id number] Exam acquisition parameters: * Exam Date: 01/25/2025 11:06 AM * Site: [facility] * * CT System Peoplesoft Fscm Developer: Symplified * CT System Model: Sensation * Tube [...] reviewed and edited and updated as necessary. Rajendra Goodman APRN.ELVIA I spent a total of 25 minutes on the date of the service which included preparing to see the patient, zhax-qk-aenb patient care, completing clinical documentation, performing a medically appropriate examination, counseling and educating the patient/family/caregiver, and ordering medications, tests,or procedures. documented in this encounterMercy Health St. [facility]05-14-2025 NoteHNO ID: [id number] Author: RAJENDRA GOODMAN APRN.CNP Service: ? Author Type: Nurse Practitioner Type: Progress Notes Filed: 03/10/2025 13:47 Note Text: Pulmonary Medicine Patients name: Rajendra Palumbo PCP: Phuc Martines DO CC: concern for ROXY HPI: Rajendra Lucero is a 69 year old female former 99-uksg-hmmm smoker, quitting in 2008 with PMH significant [...] that time. She was just hospitalized at [facility] 02/19 - 02/23 for SOB/leg [...] disease) (HCC) 02/03/2010 Coronary artery disease No CA, CHF. No heart cath. Diverticulosis of colon [...] ELLIPTA 200-62.5-25 mcg inhalation powder Generic drug: kwduufntbwp-jlbafqjjo-hrqrjyxs Inhale 1 Puff as instructed once daily. [...] Recommendations: Followup LDCT in 6 months Reference: [employer] (more content not included)...[facility]05-05-2025 Instructions* Patient Instructions* Janette Damon APRN.CNP - 03/01/2025 12:45 PM EDT Follow-up with pulmonology and discuss possible sleep apnea Make follow-up with cardiology Hold Amlodipine for now documented in this encounterMercy Health St. [facility]05-05-2025 History of Present illness Narrative* Janette Damon APRN.CNP - 03/01/2025 12:20 PM EDT 02/26/2025 Patient presents with: Hospital F/U: [facility] COPD SUBJECTIVE: This is a 69 year old that is here today for Above Complaints. HOSPITAL/ER FOLLOW UP: Reason for visit: SOB, and leg swelling Which facility: [facility] Date of visit: 02/19/2025-02/23/2025 Diagnosis: [...] as yet. Was wanting to stay within [facility] system. Denies dyspnea, orthopnea wheezing, chest pain, palpitations or leg swelling. 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 Last appointment on 12/25/2024. Uses 3/4L/NC at rest and 6 L/NC with exertion. She feels her breathing as at her baseline. ER records reviewed PAST MEDICAL HISTORY Diagnosis Date Chronic hypoxemic respiratory failure (HCC) COPD (chronic obstructive pulmonary disease) (HCC) 02/03/2010 Coronary artery disease No CA, CHF. No heart cath. Diverticulosis of colon [...] hours as needed for wheezing/shortness of breath. ihxvsmksxjg-fpaoyrmxg-xghuwzyj (TRELEGY ELLIPTA) 200-62.5-25 mcg inhalation powder Inhale [...] 427.32, ICD10: I48.92 - she follow-up with [facility] cardiology if unable to get [...] 4 weeks for hypertension visit Janette Damon APRN.CNP Prescription instructions reviewed with [...] which included preparing to see the patient, zecx-uu-haqu patient care, completing clinical documentation, obtaining and/or reviewing separately obtained history, performing a medically appropriate examination, counseling and educating the pat ient/family/caregiver, and ordering medications, tests, or procedures. documented in this encounterMercy Health St. [facility]05-05-2025 NoteHNO ID: [id number] Author: JANETTE DAMON APRN.CNP Service: ? Author Type: Nurse Practitioner Type: Progress Notes Filed: 03/01/2025 14:15 Note Text: 02/26/2025 Patient presents with: Hospital F/U: [facility] COPD SUBJECTIVE: This is a 69 year old that is here today for Above Complaints. HOSPITAL/ER FOLLOW UP: Reason for visit: SOB, and leg swelling Which facility: [facility] Date of visit: 02/19/2025-02/23/2025 Diagnosis: [...] as yet. Was wanting to stay within [facility] system. Denies dyspnea, orthopnea wheezing, chest pain, palpitations or leg swelling. Follows with [facility] it security consulting director. Last appointment on 12/25/2024. Uses 3/4L/NC at rest and 6 L/NC with exertion. She feels her breathing as at her baseline. ER records reviewed PAST MEDICAL HISTORY Diagnosis Date Chronic hypoxemic respiratory failure (HCC) COPD (chronic obstructive pulmonary disease) (HCC) 02/03/2010 Coronary artery disease No CA, CHF. No heart cath. Diverticulosis of colon [...] hours as needed for wheezing/shortness of breath. ckxjlzjagcd-qzqooqolc-qbktqgza (TRELEGY ELLIPTA) 200-62.5-25 mcg inhalation powder Inhale [...] due on 01/13/2030 In (more content not included)...[facility]04-29-2025 Discharge summary Author Yee Carondelet Healthyajaira [facility] Note Date/Time February 23, 2025 1:2 2pm [facility] Medical Records Department [address] [place] [address] Instructions for Home/Discharge Instructions 02/23/25 1320 MR#: [id number] Acct: [id number] Name: RAJENDRA LUCERO Rep #:[id number] : 1955 69 [...] [Daily Multi-Vitamin] Tablet 1 tab PO DAILY Cimarron Saline 0.65 % aerosol,spray 1 spray intranasal [...] DO; Dr. Kym Norton MD ~ Signed [facility] Work Phone: 1(665) 750-800504-29-2025 Discharge summary Author Yee Jones [facility] Note Date/Time February 23, 2025 2:4 9pm [facility] Medical Records Department [address] [place] [address] Discharge Summary 02/23/25 1322 MR#: [id number] Acct: [id number] Name: RAJENDRA LUCERO Rep #:[id number] : 1955 69 From: Yee Jones MD PCP: Dr. Phuc Martines DO Status:AD M IN Location: [facility] [id number] Providers Date of Admission: 02/19/25 Date [...] sodium chloride 0.65 % nasal spray aerosol (Cimarron Saline) 1 spray intranasal BID PRN dry [...] (Auto) 78.1 H, Lymph % (Auto) 11.2 L,Stephens % (Auto) 7.9, Eos % (Auto) 1.7, [...] [Daily Multi-Vitamin] Tablet 1 tab PO DAILY Cimarron Saline 0.65 % aerosol,spray 1 spray intranasal [...] Self Care Charges/Coding Visit Charges Inpatient E&M: 86337 Disch Hosp >30min 02/23/25 1449 <Electronically signed by Yee Jones MD> Cosigner Signature (if applicable): CC: Dr. Phuc Martines DO; Dr. Yee Jones MD~ Signed [facility] Work Phone: 1(809) 977-129804-29-2025 Discharge summary [facility] Medical Records Department [address] [place] [address] Discharge Summary 02/23/25 1322 MR#: [id number] Acct: [id number] Name: RAJENDRA LUCERO Rep #:[id number] : 1955 69 From: Yee Jones MD PCP: Dr. Phuc Martines DO Status:AD M IN Location: [place] [address] Providers Date of Admission: 02/19/25 Date of [...] sodium chloride 0.65 % nasal spray aerosol (Cimarron Saline) 1 spray intranasal BID PRN dry [...] (Auto) 78.1 H, Lymph % (Auto) 11.2 L,Stephens % (Auto) 7.9, Eos % (Auto) 1.7, [...] [Daily Multi-Vitamin] Tablet 1 tab PO DAILY Cimarron Saline 0.65 % aerosol,spray 1 spray intranasal [...] Self Care Charges/Coding Visit Charges Inpatient E&M: 19866 Disch Hosp >30min 02/23/25 1449 Cosigner Signature (if applicable): CC: Dr. Phuc Martines DO; Dr. Yee Jones MD~ Signed [facility]04-29-2025 Consult note [facility] Medical Records Department [address] [place] [address] Counseling Note - Pharmacy 02/23/25 1410 MR#: [id number] Acct: [id number] Name: RAJENDRA LUCERO Rep #:[id number] : 1955 69 From: Milena Rodas PCP: Dr. Phuc Martines DO Status:AD M IN Location: [facility] [id number] Pharmacy [facility] Pharmacy Service has performed discharge [...] of their dischargemedications. Patient counseled by pharmacy service associatePete. Medications at Discharge Home Medications Oxygen, Home [...] sodium chloride 0.65 % nasal spray aerosol (Cimarron Saline) 1 spray intranasal BID PRN dry [...] #60 tabs 02/23/25 02/23/25 1412 Date _ Milena Herron Signature (if applicable): Date CC: ~ Signed [facility]04-29-2025 Discharge summary [facility] Medical Records Department [address] [place] [address] Instructions for Home/Discharge Instructions 02/23/25 1320 MR#: [id number] Acct: [id number] Name: RAJENDRA LUCERO Rep #:[id number] : 1955 69 [...] [Daily Multi-Vitamin] Tablet 1 tab PO DAILY Cimarron Saline 0.65 % aerosol,spray 1 spray intranasal [...] DO; Dr. Kym Norton MD ~ Signed [facility]04-29-2025 [facility] Medical Records Department [address] [place] [address] Discharge Summary 02/23/25 132 MR#: [id number] Acct: [id number] Name: RAJENDRA LUCERO Rep #: [id number] : 1955 69 From: Yee Jones MD PCP: Dr. Phuc Martines DO Status:ADM IN Location: [place] [address] Providers Date of Admission: 02/19/25 Date of [...] sodium chloride 0.65 % nasal spray aerosol (Cimarron Saline) 1 spray intranasal BID PRN dry [...] moderate global right ventricular (more content not included)...[facility]04-28-2025 Progress note Author Yee Jones [facility] Note Date/Time February 22, 2025 4:4 4pm [facility] Medical Records Department [address] [place] [address] Progress Note 02/22/25 1411 MR#: [id number] Acct: [id number] Name: RAJENDRA LUCERO Rep #:[id number] : 1955 69 From: Yee Jones MD PCP: Dr. Phuc Martines, DO Status:AD M IN Location: [place] [address] Subjective Subjective Patient seen and examined. She [...] with ambulation. Charges/Coding Visit Charges Inpatient E&M: 63555 Subs Hosp L2 02/22/25 1647 <Electronically signed by Yee Jones MD> Yee Jones MD Cosigner Signature (if applicable): CC: ~ Signed [facility] Work Phone: 1(290) 288-980604-28-2025 Progress note [facility] Medical Records Department [address] [place] [address] Progress Note 02/22/25 1411 MR#: [id number] Acct: [id number] Name: RAJENDRA LUCERO Rep #:[id number] : 1955 69 From: Yee Jones MD PCP: Dr. Phuc Martines, DO Status:AD M IN Location: [place] [id number]- Subjective Subjective Patient seen and examined. She [...] with ambulation. Charges/Coding Visit Charges Inpatient E&M: 63289 Subs Hosp L2 02/22/25 1644 Yee Jones MD Cosigner Signature (if applicable): CC: ~ Signed [facility]04-27-2025 Progress note Author Claudia Valerio [facility] Note Date/Time February 21, 2025 3:2 8pm [facility] Medical Records Department [address] [place] [address] Progress Note - Hospitalist 02/21/25 1144 MR#: [id number] Acct: [id number] Name: RAJENDRA LUCERO Rep #:[id number] : 1955 69 From: Claudia Valerio DO PCP: Dr. Phuc Martines, DO Status:AD M IN Location: [place] [address] Reason for Visit Reason for Visit: Shortness [...] follow-up and would like to follow-up at [facility]--> she stated she would get [...] - Patient follows with pulmonary medicine at [facility] - Does not seem to be in [...] on admission Charges/Coding Visit Charges Inpatient E&M: 80574 Subs Hosp L2 02/21/25 1528 <Electronically signed by Claudia Valerio DO> Cosigner Signature (if applicable): CC: ~ Signed [facility] Work Phone: 1(151) 592-247004-27-2025 Progress note [facility] Medical Records Department [address] [place] [address] Progress Note - Hospitalist 02/21/25 1144 MR#: [id number] Acct: [id number] Name: RAJENDRA LUCERO Rep #:[id number] : 1955 69 From: Claudia Valerio DO PCP: Dr. Phuc Martines, DO Status:AD M IN Location: [facility] [id number] Reason for Visit Reason for Visit: [...] follow-up and would like to follow-up at [facility]--> she stated she would get [...] - Patient follows with pulmonary medicine at [facility] - Does not seem to be in [...] on admission Charges/Coding Visit Charges Inpatient E&M: 62492 Subs Hosp L2 02/21/25 1528 Cosigner Signature (if applicable): CC: ~ Signed [facility]04-26-2025 Progress note Author Claudia Valerio [facility] Note Date/Time February 20, 2025 2:4 4pm [facility] Medical Records Department [address] [place] [address] Progress Note - Hospitalist 02/20/25806 MR#: [id number] Acct: [id number] Name: RAJENDRA LUCERO Rep #:[id number] : 1955 69 From: Claudia Valerio DO PCP: Dr. Phuc Martines, DO Status:AD M IN Location: [place] [address] Reason for Visit Reason for Visit: Shortness [...] 80.0 H, Lymph % (Auto) 9.8 L, Stephens % (Auto) 8.5, Eos % (Auto) 1.0, [...] Clarity Clear, Urine pH 6.0, Ur Specific Cutler 1.010, Urine Protein Negative, Urine Glucose (UA) [...] Troponin T Hi Sens 4Hr < 6 04/26/25 05:01: WBC 8.2, RBC 3.97 L, Hgb [...] Cholesterol, Calc 101, VLDL Cholesterol 12, HDL Mmwfrwkkfbu27, Cholesterol/HDL Ratio 2.63, TSH 0.626 Micro: Microbiology [...] - Patient follows with pulmonary medicine at [facility] - Does not seem to be in [...] on admission Charges/Coding Visit Charges Inpatient E&M: 25357 Subs Hosp L2 02/20/25 1444 <Electronically signed by Claudia Valerio DO> Cosigner Signature (if applicable): CC: ~ Signed [facility] Work Phone: 1(261) 467-357404-26-2025 Progress note [facility] Medical Records Department [address] [place] [address] Progress Note - Hospitalist 02/20/25 0807 MR#: [id number] Acct: [id number] Name: RAJENDRA LUCERO Rep #:[id number] : 1955 69 From: Claudia Valerio DO PCP: Dr. Phuc Martines, Status:AD M IN Location: [place] [id number]- [id number] Reason for Visit Reason for Visit: [...] 80.0 H, Lymph % (Auto) 9.8 L, Stephens % (Auto) 8.5, Eos % (Auto) 1.0, [...] Clarity Clear, Urine pH 6.0, Ur Specific Cutler 1.010, Urine Protein Negative, Urine Glucose (UA) [...] 223, MPV 11.2, Sodium 142, Potassium 3.8, Frpcygux87 L, Carbon Dioxide 34.3 H, Anion Gap13, [...] Cholesterol, Calc 101, VLDL Cholesterol 12, HDL Pixtwwkiyly49, Cholesterol/HDL Ratio 2.63, TSH 0.626 Micro: Microbiology [...] - Patient follows with pulmonary medicine at [facility] - Does not seem to be in [...] on admission Charges/Coding Visit Charges Inpatient E&M: 77235 Subs Hosp L2 02/20/25 1444 Cosigner Signature (if applicable): CC: ~ Signed [facility]04-26-2025 Radiology Diagnostic study note [facility] Imaging Services [address] [place], [place] [address] CTA Chest W/WO Contrast MR#: [id number] Acct: [id number] Name: RAJENDRA LUCERO Rep #: [id number] : 1955 F 69 From: Bev Drummond MD PCP: Dr. Phuc Martines DO Status: AD M IN Study:CTA Chest W/WO Contrast Date of Exam: 02/20/25 Exam# [id number] Ordering Dr: Kinza Valerio DO EXAM: CT [...] in 6 months is recommended. Reading Location: [facility] CC: Dr. Phuc Martines DO; Dr. Claudia Valerio DO ~ Valuation Consultant: Signed [facility]04-25-2025 History and physical note Author Kym Norton [facility] Note Date/Time February 19, 2025 4:1 3pm [facility] Medical Records Department [address] [place] [address] H&P Exam - Hospitalist 02/19/25 1548 MR#: [id number] Acct: [id number] Name: RAJENDRA LUCERO Rep #:[id number] : 1955 69 From: Kym Norton MD PCP: Dr. Phuc Martines, DO Status:AD M IN Location: [facility] [id number] HPI - General General Date of Admission: 02/19/25 Date of Service: 02/19/25 Chief Complaint: Increase shortness of breath and lower extremity swelling HPI Narrative RAJENDRA LUCERO, is a 69-year-old female with a history of COPD on 3 L nasal cannula and hypertension who presented to [facility] ED 02/19/2025 with increased shortness [...] not note any history of withdrawal symptoms. [facility] Medical History COPD (chronic obstructive pulmonary [...] BID PRN dry 02/19/25 Unknown History aerosol (Cimarron Saline) nasal passages triamcinolone acetonide 0.5 % [...] 80.0 H, Lymph % (Auto) 9.8 L, Stephens % (Auto) 8.5, Eos % (Auto) 1.0, [...] Clarity Clear, Urine pH 6.0, Ur Specific Cutler 1.010, Urine Protein Negative, Urine Glucose (UA) [...] IMPRESSION: Pulmonary venous congestive changes. [facility] Assessment/Plan (1) Acute on chronic hypoxic respiratory failure: PLAN: Plan # Acute on chronic hypoxic respiratory failure in setting of COPD on 3 L home [id number] secondary to new onset heart failure -Patient [...] 78 Minutes Charges/Coding Visit Charges Inpatient E&M: 21548 Init Hosp L3 02/19/25 1613 <Electronically signed by Kym Norton MD> Cosigner Signature (if applicable): CC: Dr. Phuc Martines, DO; Dr. Kym Norton MD~ Signed [facility] Work Phone: 1(255) 822-530604-25-2025 Evaluation note* Diagnosis Onset Date Resolution Status Admit Date Atrial flutter acute January 3:53pm Dyspnea on exertion acute February 19, 2025 3:53pm Shortness of breath acute February 19, 2025 3:53pm Acute on chronic hypoxic respiratory failure chronic February 19, 2025 3:53pm [facility] Work Phone: 1(143) 467-291304-25-2025 Evaluation note* Diagnosis Onset Date Resolution Status Admit Date Atrial flutter acute January 3:53pm Shortness of breath acute February 19, 2025 3:53pm Acute on chronic hypoxic respiratory failure resolved February 19, 2025 3:53pm Dyspnea on exertion resolved February 19, 2025 3:53pm Atrial flutter acute March 30, 2025 11:24am [facility] Work Phone: 1(426) 166-980204-25-2025 Evaluation note* Diagnosis Onset Date Resolution Status [...] ventricular response acute April 23, 2025 9:51pm [facility] Work Phone: 1(812) 831-691804-25-2025 Evaluation note* Diagnosis Onset Date Resolution Status Admit Date Atrial flutter acute January 3:53pm Shortness of breath acute February 19, 2025 3:53pm Acute on chronic hypoxic respiratory failure resolved February 19, 2025 3:53pm Dyspnea on exertion resolved February 19, 2025 3:53pm Alcohol abuse acute March 30 025 11:24am Atrial flutter acute March 30, 2025 11:24am ROXY (obstructive sleep apnea) acute March 30, 2025 11:24am COPD (chronic obstructive pulmonary disease) chronic March 30 11:24am Hypertension chronic March 30 11:24am Atrial flutter with rapid ventricular response inactive April 23, 2025 9:51pm Shortness of breath acute May 07, 2025 1:02pm [facility] Work Phone: 1(545) 344-181104-25-2025 Evaluation note* Diagnosis Onset Date Resolution Status [...] ventricular response inactive April 23, 2025 9:51pm Atrial flutter acute May 07, 2025 1:02pm Shortness of breath acute May 07, 2025 1:02pm Hypertension chronic May 07 025 1:02pm [facility] Work Phone: 1(376) 497-586904-25-2025 Discharge summary Author Linwood Ivy [facility] Note Date/Time February 19, 2025 3:4 0pm [facility] Medical Records Department [address] [place] [address] Emergency Department Summary 02/19/25 MR#: [id number] Acct: [id number] Name: RAJENDRA LUCERO Rep #:[id number] : 1955 69 From: Linwood Ivy DO PCP: Dr. Phuc Martines DO Status:AD M IN Location: [place] [id number] ADDENDUM by Dr. Linwood Ivy DO on [...] not coughing up significant mount of phlegm. [facility] Medical History COPD (chronic obstructive pulmonary disease) [...] BID PRN dry 02/19/25 Unknown History aerosol (Cimarron Saline) nasal passages triamcinolone acetonide 0.5 % [...] follow commands and that she was at [facility] year is 2024 Skin: Warm, dry, intact [...] 80.0 H Lymph % (Auto) 9.8 L Stephens % (Auto) 8.5 Eos % (Auto) 1.0 [...] Clarity Clear Urine pH 6.0 Ur Specific Cutler 1.010 Urine Protein Negative Urine Glucose (UA) [...] [Daily Multi-Vitamin] Tablet 1 tab PO DAILY Cimarron Saline 0.65 % aerosol,spray 1 spray intranasal BID PRN (Reason: dry nasal passages) triamterene-hydrochlorothiazid 37.5-25 mg capsule 1 cap PO DAILY Patient Comments: PT TAKES IN AFTERNOON guaifenesin [Mucus Relief ER] 1,200 MG tablet 1,200 mg PO BID PRN (Reason: cough) Primary Care Provider: Phuc Martines Referrals: Phuc Martines DO [Primary Care Provider] - Print Language: Lebanese Disposition Disposition: Acute Care Hospital [facility] What to do if you have Problems For any increased pain, shortness of breath, bleeding, nausea or vomiting, chestpain, or any unexpected problems, contact your Primary Care Provider. Call [facility] ([phone]) or report to the closest Emergency Room. Call 911 if necessary. 02/19/25 1504 <Electronically signed by Linwood Ivy DO> Cosigner Signature (if applicable): CC: Dr. Phuc Martines DO ~ Signed [facility] Work Phone: 1(235) 478-939404-25-2025 History and physical note [facility] Medical Records Department [address] [place] [address] H&P Exam - Hospitalist 02/19/25 1548 MR#: [id number] Acct: [id number] Name: RAJENDRA LUCERO Rep #:[id number] : 1955 69 From: Kym Norton MD PCP: Dr. Phuc Martines DO Status:AD M IN Location: [facility] [id number] HPI - General General Date of Admission: 02/19/25 Date of Service: 02/19/25 Chief Complaint: Increase shortness of breath and lower extremity swelling HPI Narrative RAJENDRA ULCERO, is a 69-year-old female with a history of COPD on 3 L nasal cannula and hypertension who presented to [facility] ED 02/19/2025 with increased shortness [...] does not noteany history of withdrawal symptoms. [facility] Medical History COPD (chronic obstructive pulmonary [...] BID PRN dry 02/19/25 Unknown History aerosol (Cimarron Saline) nasal passages triamcinolone acetonide 0.5 % [...] 80.0 H, Lymph % (Auto) 9.8 L, Stephens % (Auto) 8.5, Eos % (Auto) 1.0, [...] Clarity Clear, Urine pH 6.0, Ur Specific Cutler 1.010, Urine Protein Negative, Urine Glucose (UA) [...] setting of COPD on 3 L home [id number] secondary to new onset heart failure -Patient [...] 78 Minutes Charges/Coding Visit Charges Inpatient E&M: 07477 Init Hosp L3 02/19/25 1613 Cosigner Signature (if applicable): CC: Dr. Phuc Martines DO; Dr. Kym Norton MD~ Signed [facility]04-25-2025 Discharge summary [facility] Medical Records Department [address] [place] [address] Emergency Department Summary 02/19/25 MR#: [id number] Acct: [id number] Name: RAJENDRA LUCERO Rep #:[id number] : 1955 69 From: Linwood Ivy DO PCP: Dr. Phuc Martines DO Status:AD M IN Location: [place] [id number]- [id number] Linwood Ivy DO [...] not coughing up significant mount of phlegm. [facility] Medical History COPD (chronic obstructive pulmonary disease) [...] BID PRN dry 02/19/25 Unknown History aerosol (Cimarron Saline) nasal passages triamcinolone acetonide 0.5 % [...] follow commands and that she was at [facility] year is 2024 Skin: Warm, dry, intact [...] 80.0 H Lymph % (Auto) 9.8 L Stephens % (Auto) 8.5 Eos % (Auto) 1.0 [...] Clarity Clear Urine pH 6.0 Ur Specific Cutler 1.010 Urine Protein Negative Urine Glucose (UA) Normal Urine Ketones Negative Urine Occult Blood Negative Urine Nitrite Negative Urine Bilirubin Negative Urine Urobilinogen Normal Ur Leukocyte Esterase 25 H Radiography Diagnostic Testing: Clinical Impression(s) from Imaging Studies Chest X-Ray 02/19/25 13:40 IMPRESSION: Pulmonary venous congestive changes. Reading Location: [facility] Discharge Plan Triage Chief Complaint: Shortness of [...] [Daily Multi-Vitamin] Tablet 1 tab PO DAILY Cimarron Saline 0.65 % aerosol,spray 1 spray intranasal BID PRN (Reason: dry nasal passages) triamterene-hydrochlorothiazid 37.5-25 mg capsule 1 cap PO DAILY Patient Comments: PT TAKES IN AFTERNOON guaifenesin [Mucus Relief ER] 1,200 MG tablet 1,200 mg PO BID PRN (Reason: cough) Primary Care Provider: Phuc Martines Referrals: Phuc Martines DO [Primary Care Provider] - Print Language: Lebanese Disposition Disposition: Acute Care Hospital [facility] What to do if you have Problems For any increased pain, shortness of breath, bleeding, nausea or vomiting, chestpain, or any unexpected problems, contact your Primary Care Provider. Call [facility] ([phone]) or report tothe closest Emergency Room. Call 911 if necessary. 02/19/25 1504 Cosigner Signature (if applicable): CC: Dr. Phuc Martines DO ~ Signed [facility]04-25-2025 Radiology Diagnostic study note [facility] Imaging Services [address] [place] [address] Chest PA and Lateral MR#: [id number] Acct: [id number] Name: RAJENDRA LUCERO Rep #: [id number] : 1955 F 69 From: Vicki Mccabe MD PCP: Dr. Phuc Martines DO Status: RE G ER Study:Chest PA and Lateral Date of Exam: 02/19/25 Exam# [id number] Ordering Dr: Yonatan Ivy DO PROCEDURE: CHEST [...] Martines DO; Dr. Linwood Ivy DO ~ Valuation Consultant: Signed [facility]04-01-2025 Telephone encounter Note* Telephone Encounter - Maricruz Camp APRN.CNP - 01/26/2025 4:47 PM EDT Left message for patient to check Mychart message and call back if she wants to discuss this further. Category 3 LDCT due to residual RML opacity, likely inflammatory/iinfectious. Maricruz Camp APRN.CNP [place] [address]-01-2025 Miscellaneous Notes* Telephone Encounter - Maricruz Camp APRN.CNP - 01/26/2025 4:47 PM EDT Left message for patient to check Mychart message and call back if she wants to discuss this further. Category 3 LDCT due to residual RML opacity, likely inflammatory/iinfectious. Maricruz Camp APRN.CNP documented in this encounter[facility]25 Instructions* Patient Instructions* Maricruz Camp APRN.CNP [...] curative intent treatment Lung Cancer Screening hotline: [phone] Specialist Providers: (Basia Guzman CNP; Josefina Ceron CNP; Pito Dewitt CNP; ELVIA Dixon; Lakia Ohara PA-C; Keely Castillo PA-C; Lisha Cruz CNP, Nadia Wilson CNP, Veronica Grover CNP, Maricruz Camp CNP & Chiquis Rico PA-C): [phone] documented in [address] encounterMer[facility]. [facility]03-31-2025 History of Present illness Narrative* Pito Galaviz RT(Tarun) - 01/25/2025 10:40 AM EDT Radiology Service Progress Note PATIENT NAME: Rajendra Lucero DATE OF SERVICE: January 25, 2025 [...] PATIENT PRESENTS WITH AN IMPLANTABLE OR ATTACHED WELDING PRODUCTION SUPERVISOR: No RADIOLOGY DEPARTMENT: CT; Exam(s) Completed: Lung Screening PERIPHERAL IV DATA: Not applicable SIGNED BY: ISRA Crenshaw) January 25, 2025 1:52 PM documented in this encounterMer[facility]. [facility]03-31-2025 NoteHNO ID: [id number] Author: PITO GALAVIZ RT(R) Service: ? Author Type: Bar Machine Operator Multiple Spindle Type: Progress Notes Filed: 01/25/2025 13:52 Note Text: Radiology Service Progress Note PATIENT NAME: Rajendra Lucero DATE OF SERVICE: January 25, 2025 [...] PATIENT PRESENTS WITH AN IMPLANTABLE OR ATTACHED WELDING PRODUCTION SUPERVISOR: No RADIOLOGY DEPARTMENT: CT; Exam(s) Completed: Lung Screening PERIPHERAL IV DATA: Not applicable SIGNED BY: RT Flower(R) January 25, 2025 1:52 [facility]03-31-2025 NoteHNO ID: [id number] Author: MARICRUZ CAMP APRN.AIRCRAFT ARMORER Service: ? Author Type: Nurse Practitioner Type: Progress Notes Filed: 01/25/2025 12:28 Note Text: Chief Complaint: 3 month follow-up from LDCT scan dated 10/19/2024 for LUNG RADS Category 0 finding of new RML consolidation and MAKAYLA nodule opacities. . History of Present Illness: Rajendra Lucero is a 69 year old female [...] activities of daily living. Modified Medical Research [place] Dyspnea Scale (MMRC) On level ground I [...] disease) (HCC) 02/03/2010 Coronary artery disease No CA, CHF. No heart cath. Diverticulosis of colon [...] to 08/29/2022. Prior PFTS: SPIROMETRY BASELINE ONLY ([id number]) - ordered on 03/16/22 No textual results for order. SPIROMETRY BASELINE ONLY ([id number]) - ordered on 03/31/20 [facility] [address] [place] [address] Test Date: 2020-03-31 Pat Name: RAJENDRA LUCERO Department: Room: Gender: Female Bar Machine Operator Multiple Spindle: YASMIN Lee : 1955 Requested By: Ivan CHRISTINE Order Number: [id number] Reading MD: Joel Childs Interpretive Statements ATS/ERS acceptabil (more content not included)...[facility] 01-25-2025 History of Present illness Narrative* Maricruz Camp APRN.AIRCRAFT ARMORER - 01/25/2025 10:22 AM EDT Chief Complaint: 3 month follow-up from LDCT scan dated 10/19/2024 for LUNG RADS Category 0 finding of new RML consolidation and MAKAYLA nodule opacities. . History of Present Illness: Rajendra Lucero is a 69 year old female [...] activities of daily living. Modified Medical Research [place] Dyspnea Scale (MMRC) On level ground I [...] disease) (HCC) 02/03/2010 Coronary artery disease No CA, CHF. No heart cath. Diverticulosis of colon [...] to 08/29/2022. Prior PFTS: SPIROMETRY BASELINE ONLY ([id number]) - ordered on 03/16/22 No textual results for order. 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 Six year risk is 1.4% [email or web address] 2. Nicotine Dependence, Former: Continue to abstain from smoking cigarettes. Maricruz Camp APRN.CNP January 25, 2025 10:22 AM documented in this encounterMer[facility]03-26-2025 NoteHNO ID: [id number] Author: PHUC MARTINES, DO Service: ? Author Type: Physician Type: Progress Notes Filed: 01/20/2025 20:54 Note Text: CC: Rajendra Lucero is a 69 year old female who presents to the office for follow up HPI: HTN, recently controlled, no further dizziness. No chest pain/pressure. Has chronic dyspnea. No new edema or SINHA's or syncope symptoms. 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 Feels she is coping okay. Has support from her children COPD oxygen dependent, stage 3., seeing Window Shade Ring Coverer- recently had jaziel increased and feels this is helping her PAST MEDICAL HISTORY Diagnosis Date Chronic hypoxemic respiratory failure (HCC) COPD (chronic obstructive pulmonary disease) (HCC) 02/03/2010 Coronary artery disease No CA, CHF. No heart cath. Diverticulosis of colon [...] hours as needed for wheezing/shortness of breath. lafahdxwgef-proineoxi-vgkptmnw (TRELEGY ELLIPTA) 200-62.5-25 mcg inhalation powder Inhale [...] - ICD9: 780.79, ICD10: (more content not included)...[facility]03-26-2025 History of Present illness Narrative* Phuc Martines DO - 01/20/2025 8:50 PM EDT CC: Rajendra Lucero is a 69 year old female who presents to the office for follow up HPI: HTN, recently controlled, no further dizziness. No chest pain/pressure. Has chronic dyspnea. No newedema or SINHA's or syncope symptoms. 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 Feels she is coping okay. Has support from her children COPD oxygen dependent, stage 3., seeing Window Shade Ring Coverer- recently had jaziel increased and feels this is helping her PAST MEDICAL HISTORY Diagnosis Date Chronic hypoxemic respiratory failure (HCC) COPD (chronic obstructive pulmonary disease) (HCC) 02/03/2010 Coronary artery disease No CA, CHF. No heart cath. Diverticulosis of colon [...] hours as needed for wheezing/shortness of breath. 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 Essential hypertension - ICD9: 401.9, ICD10: I10 - Controlled - Continue current medications - Recommend home blood pressure monitoring, to bring results to next visit - Encouraged sodium restriction, DASH or Mediterranean diet - Recommend regular aerobic exercise 9. Oxygen dependent - ICD9: V46.2, ICD10: Z99.81 See above 10. Morbid obesity with BMI of 45.0-49.9, adult ([facility]) - ICD9: 278.01, V85.42, ICD10: E66.01, Z68.42 Stable - Behavioral intervention and - Eat well program Phuc Martines DO Return if no improvement. Follow up with Phuc Martines DO. To ER if develops chest pain, shortness of breath. Discussed risks, benefits, alternatives, and potential side effects of medications. Patient/Guardian expressed understanding and agreed with the plan. See patient instructions. Phuc Martines DO [address] [place] [address] * Phuc Martines DO - 01/20/2025 8:48 PM EDT Rajendra Lucero is a 69 year old female [...] kg/(m^2) Phuc Martines DO documented in this encounterMercy Health St. [facility]03-[facility]25 NoteHNO ID: [id number] Author: PHUC MARTINES DO Service: ? Author Type: Physician Type: Progress Notes Filed: 01/20/2025 20:54 Note Text: Rajendra Lucero is a 69 year old female [...] weight loss. BMI 45.32 kg/(m2) Phuc Martines [facility]02-28-2025 Instructions* Patient Instructions* Rajendra Goodman APRN.AIRCRAFT ARMORER - 12/25/2024 11:59 AM EST Increase the dose of Trelegy. Remember to rinse after you use. If there is any concern with cost, we can try splitting Trelegy into 2 different inhalers. Monitor your oxygen levels with activity especially. Our last testing shows you require 6 liter of oxygen with activity. Electronically signed by Click, Rajendra M, MANUFACTURING ENGINEER MACHINING.AIRCRAFT ARMORER at 12/25/2024 11:59 AM EST documented in this encounterMercy Health St. [facility]02-28-2025 History of Present illness Narrative* Rajendra Goodman APRN.CNP - 12/25/2024 11:30 AM EST Images from the original note were not included. Pulmonary Medicine Patients name: Rajendra Palumbo PCP: Phuc Martines DO CC: follow-up COPD HPI: Rajendra Lucero is a 69 year old female former 60-kzgk-rdkq smoker, quitting in 2008 with PMH significant [...] disease) (HCC) 02/03/2010 Coronary artery disease No CA, CHF. No heart cath. Diverticulosis of colon [...] ELLIPTA 100-62.5-25 mcg inhalation powder Generic drug: pldptfhvasd-vakpqqwzh-sjovwndl USE 1 INHALATION DAILY INSTRUCTED triamcinolone acetonide [...] prior chest CT examinations is needed. Reference: [employer]. Lung CT Screening Reporting and Data System (Lung-RADS). Available at: http://www.acr.org/Quality-Safety/Resources/LungRADS Valuation Consultant: PAT Transcribe Date/Time: Oct 19 2024 11:21A Dictated by : VIDAL PULLIAM MD This examination was interpreted and the report reviewed and electronically signed by: VIDAL PULLIAM MD on Oct 19 2024 11:28AM EST Results-Findings * * *Final Report* * * DATE OF EXAM: Oct 19 2024 10:09AM [facility] 0562 - CT LUNG SCREEN [facility] / PROCEDURE REASON: Former cigarette smoker [...] without contrast. MQ: CTLCS_6 Patient characteristics: * Fzqr-ny-Qpxvy: 1955; Age at exam: 69 years * Gender: Female * Lung Disease: Asymptomatic (no signs or symptoms of lung disease) * Number of Pack Years: 38 * Current smoker (=0) or Number of Years since Quit: 15 * Ordering provider and NPI: MARICRUZ CAMP [id number] * Interpreting radiologist and NPI: Nicole [id number] Exam acquisition parameters: * Exam Date: 10/19/2024 10:09 AM * Site: [facility] * * CT System [employer] Fscm Developer: Siemens * CT System Model: Sensation [...] needed. 2. Chronic respiratory failure with hypoxia (HCC) - [...] - due for CT and follow-up in December/ 6 months Portions of this documentation were copied and pasted from previous office visit notes in order to provide a cohesive continuity of the history. The note has been reviewed and edited and updated as necessary. Rajendra Goodman APRN.CNP I spent a total of 27 minutes on the date of the service which included preparing to see the patient, siwx-yb-nggt patient care, completing clinical documentation, performing a medically appropriate examination, counseling and educating the patient/family/caregiver, and ordering medications, tests,or procedures. documented in this encounterMercy Health St. [facility]02-28-2025 NoteHNO ID: [id number] Author: RAJENDRA GOODMAN APRN.CNP Service: ? Author Type: Nurse Practitioner Type: Progress Notes Filed: 12/25/2024 12:29 Note Text: Pulmonary Medicine Patients name: Rajendra Palumbo PCP: Phuc Martines DO CC: follow-up COPD HPI: Rajendra Lucero is a 69 year old female former 19-byvh-nucz smoker, quitting in 2008 with PMH significant [...] failure (HCC) COPD (chronic obstructive pulmonary disease) ([facility]) 02/03/2010 Coronary artery disease No CA, CHF. No heart cath. Diverticulosis of colon [...] ELLIPTA 100-62.5-25 mcg inhalation powder Generic drug: bgvmeyneybx-hikupilgz-zceamqax USE 1 INHALATION DAILY INSTRUCTED triamcinolone acetonide [...] prior chest CT examinations is needed. Reference: [employer]. Lung CT Screening Reporting and Data System (Lung-RADS). Available at: http://www.acr.org/Quality-Safety/Resources/LungRADS Valuation Consultant: PAT Transcribe Date/Time: Oct 19 2024 11:21A Dictated by : VIDAL PULLIAM MD This examination was interpreted and the report reviewed and electronically signed by: VIDAL PULLIAM MD on Oct 19 2024 11:28AM EST Results-Findings * * *Final Report* * * DATE OF EXAM: Oct 19 2024 10:09AM [facility] 0562 - CT LUNG SCREEN WO [...] upper abdomen without contrast. (more content not included)...[facility]02-06-2025 History of Present illness Narrative* Jt Cheney Mammo Tech - 12/03/2024 11:10 AM EST Radiology Service Progress Note PATIENT NAME: Rajendra Lucero DATE OF SERVICE: December 03, 2024 [...] PATIENT PRESENTS WITH AN IMPLANTABLE OR ATTACHED WELDING PRODUCTION SUPERVISOR: No RADIOLOGY DEPARTMENT: Mammography PERIPHERAL IV DATA: Not applicable SIGNED BY: Padma Bess December 03, 2024 11:01 AM documented in this encounterMercy Health St. [facility]02-06-2025 NoteHNO ID: [id number] Author: JT CHENEY Mammo Tech Service: ? Author Type: Bar Machine Operator Multiple Spindle Type: Progress Notes Filed: 12/03/2024 11:01 Note Text: Radiology Service Progress Note PATIENT NAME: Rajendra Lucero DATE OF SERVICE: December 03, 2024 [...] PATIENT PRESENTS WITH AN IMPLANTABLE OR ATTACHED WELDING PRODUCTION SUPERVISOR: No RADIOLOGY DEPARTMENT: Mammography PERIPHERAL IV DATA: Not applicable SIGNED BY: Jt Cheney eBaoTecho Tech December 03, 2024 11:01 [facility]01-31-2025 Telephone encounter Note* Telephone Encounter - Essence Ortiz RN - 11/27/2024 3:53 PM EST Patient calls and states that she needs refills of Trelegy sent to [facility]. Patient also states that she has appointment [...] 01/20/2025 Requested Prescriptions Pending Prescriptions Disp Refills vpomxmnsxpi-pjtrxmrdq-xjfeygtx (TRELEGY ELLIPTA) 100-62.5-25 mcg inhalation powder 3 Each 3 Sig: USE 1 INHALATION DAILY INSTRUCTED Essence Ortiz RN November 27, 2024 3:[address] [facility]01-31-2025 Miscellaneous Notes* Telephone Encounter - Essence Ortiz RN - 11/27/2024 3:53 PM EST Patient calls and states that she needs refills of Trelegy sent to [facility]. Patient also states that she has appointment [...] 01/20/2025 Requested Prescriptions Pending Prescriptions Disp Refills iuyosfvhhnt-xixexztbe-noohomrd (TRELEGY ELLIPTA) 100-62.5-25 mcg inhalation powder 3 Each 3 Sig: USE 1 INHALATION DAILY INSTRUCTED Essence Ortiz RN November 27, 2024 3:54 PM documented in this encounterMercy Health St. [facility]01-15-2025 NoteHNO ID: [id number] Author: JACOBO DONALD MA Service: ? Author Type: Fur Ironer Type: Progress Notes Filed: 11/11/2024 15:47 Note [...] Controlling Blood Pressure 12/25/2024 in [facility] with RAJENDRA GOODMAN - 6 MTH F/U COPD 01/25/[address] SCAN [facility] with CT [facility] (I-STAT) - LDCT 01/25/2025 in [facility] with MARICRUZ CAMP - LDCT [facility] with PHUC MARTINES - FOLLOW UP HCC related Navigation Signature: Jacobo Donald MA November 11, 2024 3:37 [facility]01-15-2025 History of Present illness Narrative* Jacobo Donald MA - 11/11/2024 3:37 PM EST [...] Controlling Blood Pressure 12/25/2024 in [facility] with RAJENDRA GOODMAN - 6 MTH F/U COPD 01/25/[address] [facility]AN [facility] with CT [facility] (I-STAT) - LDCT 01/25/2025 in [facility] with MARICRUZ CAMP - LDCT 02/17/2025 in [facility] with PHUC MARTINES - FOLLOW UP HCC related Navigation Signature: Jacobo Donald MA November 11, 2024 3:37 PM documented in this encounterMercy Health St. [facility]01-15-2025 NotePatient Outreach (NETNAV) RAJENDRA LUCERO ([id number]) 1955 F Date Time Provider Department 11/11/24 JACOBO DONALD NETNAV During your visit today, we recorded the following information about you: Jacobo Donald MA 11/11/2024 3:47 PM Signed POPULATION [...] Follow-up Appointment Controlling Blood Pressure 12/25/2024 in PULM [facility] with RAJENDRA GOODMAN - 6 MTH F/U COPD 01/25/[address] [facility] 01/25/2025 in [facility] with MARICRUZ CAMP - LDCT 02/17/2025 [facility] - FOLLOW UP [facility] related Navigation Signature: Jacobo Donald MA November 11, 2024 3:37 PM Allergies As of Date: 11/11/2024 Noted Allergy Reaction ALEVE (NAPROXEN) 05/31/2020 4 - Hives Comments: Hives, edema of hands within 1 hour of use Date Reviewed: 10/19/2024 Reviewed by: Maricruz Camp APRN.AIRCRAFT ARMORER - Fully Assessed Reason for Visit: Population Health Navigation Outreach [3910] Cmt[facility] Prescriptions as of 11/11/2024 - triamterene-hydroCHLOROthiazide (DYAZIDE) 37.5-25 mg per capsule Take 1 capsule by mouth once daily. - amLODIPine (NORVASC) 10 mg tablet Take 1 tablet by mouth once daily. - fjypdpvbjlt-nlqgecfje-pbnxskjt (TRELEGY ELLIPTA) 100-62.5-25 mcg inhalation powder USE [...] ectasia (HCC) [I77.810] 03/13/2024 Encounter Status:Closed by VENKAT DONALDHY Osmany on 11/11/24[facility] NoteHNO ID: [id number] Author: IRMA KEVIN HUC Service: ? Author Type: Vocational Aide Type: Progress Notes Filed: 11/05/2024 14:22 Note Text: [facility] POP LUNG CANCER SCREENING FOLLOWUP ADVANCED: Diagnosis: Lung Nodule Recommendation: CT Scan Follow Up Due Date: 01/25/2025 All Follow Up Scheduled: Yes Pulmonary Follow Up Type: Lung Nodule Surveillance Patient should be added to the Lung Cancer Screening Followup Report: No Lung Cancer Screening Program Location: [facility] 11-05-2024 History of Present illness Narrative* Irma Kevin HUC - 11/05/2024 2:22 PM EST [facility] POP LUNG CANCER SCREENING FOLLOWUP ADVANCED: Diagnosis: Lung Nodule Recommendation: CT Scan Follow Up Due Date: 01/25/2025 All Follow Up Scheduled: Yes Pulmonary Follow Up Type: Lung Nodule Surveillance Patient should be added to the Lung Cancer Screening Followup Report: No Lung Cancer Screening Program Location: [facility] documented in this encounterMercy Health St. [facility]01-09-2025 NotePatient Outreach (PULMMN) RAJENDRA LUCERO ([id number]) 1955 F Date Time Provider Department 11/05/24 IRMA KEVIN During your visit today, we recorded the following information about you: Irma Kevin HUC 11/05/2024 2:22 PM Signed [facility] POP LUNG CANCER SCREENING FOLLOWUP ADVANCED: Diagnosis: Lung Nodule Recommendation: CT Scan Follow Up Due Date: 01/25/2025 All Follow Up Scheduled: Yes Pulmonary Follow Up Type: Lung Nodule Surveillance Patient should be added to the Lung Cancer Screening Followup Report: No Lung Cancer Screening Program Location: [facility] Allergies As of Date: 11/05/2024 Noted Allergy Reaction ALEVE (NAPROXEN) 05/31/2020 4 - Hives Comments: Hives, edema of hands within 1 hour of use Date Reviewed: 10/19/2024 Reviewed by: Maricruz Camp APRN.AIRCRAFT ARMORER - Fully Assessed Prescriptions as of 11/05/2024 - triamterene-hydroCHLOROthiazide (DYAZIDE) 37.5-25 mg per capsule Take 1 capsule by mouth once daily. - amLODIPine (NORVASC) 10 mg tablet Take 1 tablet by mouth once daily. - vzjknhhblbr-tlmmrpmlg-vfqpkqxk (TRELEGY ELLIPTA) 100-62.5-25 mcg inhalation powder USE [...] ectasia (HCC) [I77.810] 03/13/2024 Encounter Status:Closed by IRMA KEVIN on 11/05/24[facility] NotePatient Outreach (INTMMN) MICHELLERAJENDRA ([id number]) 1955 F Date Time Provider Department 10/21/24 PHUC MARTINES INTMMN During your visit today, we recorded the following information about you: Allergies As of Date: 10/21/2024 Noted Allergy Reaction ALEVE (NAPROXEN) 05/31/2020 4 - Hives Comments: Hives, edema of hands within 1 hour of use Date Reviewed: 10/19/2024 Reviewed by: Maricruz Camp APRN.AIRCRAFT ARMORER - Fully Assessed Visit Diagnosis:Encounter for screening mammogram for breast cancer [Z12.31] Order(s):[facility] SCREENING [facility] ASHLEY [[id number]] Order #: [id number] FUTURE Prescriptions as of 10/26/2024 - triamterene-hydroCHLOROthiazide (DYAZIDE) 37.5-25 mg per capsule Take 1 capsule by mouth once daily. - amLODIPine (NORVASC) 10 mg tablet Take 1 tablet by mouth once daily. - hszmnmrtlwv-thtpxuvbf-kfhexszw (TRELEGY ELLIPTA) 100-62.5-25 mcg inhalation powder USE [...] 03/13/2024 Encounter Status:Closed by ARIANNA BOO on 10/26/24[facility]-2024 NoteHNO ID: [id number] Author: MARICRUZ CAMP APRN.CNP Service: ? Author [...] Lung Cancer Screening Program Location: [facility] 10-20-2024 History of Present illness Narrative* Maricruz Camp APRN.CNP - 10/20/2024 9:25 AM EST [facility] POP LUNG CANCER SCREENING FOLLOWUP ADVANCED: Diagnosis: Lung Nodule Recommendation: CT Scan Follow Up Due Date: 01/18/2025 All Follow Up Scheduled: No Pulmonary Follow Up Type: Lung Nodule Surveillance Patient should be added to the Lung Cancer Screening Followup Report: Yes Lung Cancer Screening Program Location: [facility] documented in this encounterMercy Health St. [facility]12-23-2024 Instructions* Patient Instructions* Maricruz Camp APRN.CNP - 10/19/2024 2:51 PM EST There are new inflammatory opacities. Recommend follow up CT lung in 3 months. Maricruz Camp APRN.CNP documented in this encounterMercy Health St. [facility]12-23-2024 NoteHNO ID: [id number] Author: MARICRUZ CAMP APRN.CNP Service: ? Author [...] here for annual follow-up. Impression / Recommendations Rajendra Lucero presents for annual lung cancer screening [...] further evaluation discussed in detail with patient. Rajendra Lucero expressed understanding and is in agreement [...] which included preparing to see the patient, vzfb-ub-fmjv patient care, completing clinical documentation, performing a medically appropriate examination, counseling and educating the patient/family/caregiver, ordering medications, tests, or procedures, communicating with other HCPs (not separately reported), independently interpreting results (not separately reported), communicating results to the patient/family/caregiver, and care coordination (not separately reported). Maricruz Camp APRN.ELVIA October 19, 2024 10:28 AM History of Present Illness: Rajendra Lucero is a 69 year old female [...] albuterol if feeling sick. Modified [employer] [place] Dyspnea Scale (MMRC) I am too breathless [...] disease) (HCC) 02/03/2010 Coronary artery disease No CA, CHF. No heart cath. Diverticulosis of colon (without mention of hemorrhag (more content not included)...[facility]12[facility] History of Present illness Narrative* Maricruz Camp APRN.AIRCRAFT ARMORER - 10/19/2024 10:27 AM EST Images from [...] here for annual follow-up. Impression / Recommendations Rajendra Lucero presents for annual lung cancer screening [...] further evaluation discussed in detail with patient. Rajendra Lucero expressed understanding and is in agreement [...] which included preparing to see the patient, vmww-ds-aliq patient care, completing clinical documentation, performing a medically appropriate examination, counseling and educating the patient/family/caregiver, ordering medications, tests, or pr ocedures, communicating with other HCPs (not separately reported), independently interpreting results (not separately reported), communicating results to the patient/family/caregiver, and care coordination (not separately reported). Maricruz Camp, [facility] October 19, 2024 10:28 AM History of Present Illness: Rajendra Lucero is a 69 year old female [...] albuterol if feeling sick. Modified [employer] [place] Dyspnea Scale (MMRC) I am too breathless [...] disease) (HCC) 02/03/2010 Coronary artery disease No CA, CHF. No heart cath. Diverticulosis of colon [...] DATE OF EXAM: Oct 08 2023 1:24PM [facility] 0562 - CT LUNG SCREEN [facility] / PROCEDURE REASON: Former cigarette smoker [...] without contrast. MQ: CTLCS_6 Patient characteristics: * Lscp-kk-Cblfk: 1955; Age at exam: 68 years * Gender: Female * Lung Disease: Asymptomatic (no signs or symptoms of lung disease) * Number of Pack Years: 38 * Current smoker (=0) or Number of Years since Quit: 14 * Ordering provider and NPI: MARICRUZ CAMP [id number] * Interpreting radiologist and NPI: Nicole [id number] Exam acquisition parameters: * Exam Date: 10/08/2023 1:24 PM * Site: [facility] * * CT System Pe[employer] Fscm Developer: Siemens * CT System Model: Sensation [...] ... Pulmonary Function Testing: SPIROMETRY BASELINE ONLY ([id number]) - ordered on 03/16/22 No textual results for order. documented in this encounterMercy Health St. [facility]12-23-2024 History of Present illness Narrative* Pito Galaviz RT(R) - 10/19/2024 10:00 AM EST Radiology Service Progress Note PATIENT NAME: Rajendra Lucero DATE OF SERVICE: October 19, 2024 [...] PATIENT PRESENTS WITH AN IMPLANTABLE OR ATTACHED WELDING PRODUCTION SUPERVISOR: No RADIOLOGY DEPARTMENT: CT; Exam(s) Completed: Lung Screening PERIPHERAL IV DATA: Not applicable SIGNED BY: RT Flower(Tarun) October 19, 2024 12:24 PM documented in this encounterMercy Health St. [facility]12-23-2024 NoteHNO ID: [id number] Author: PITO GALAVIZ RT(R) Service: ? Author Type: Bar Machine Operator Multiple Spindle Type: Progress Notes Filed: 10/19/2024 12:24 Note Text: Radiology Service Progress Note PATIENT NAME: Rajendra Lucero DATE OF SERVICE: October 19, 2024 [...] PATIENT PRESENTS WITH AN IMPLANTABLE OR ATTACHED WELDING PRODUCTION SUPERVISOR: No RADIOLOGY DEPARTMENT: CT; Exam(s) Completed: Lung Screening PERIPHERAL IV DATA: Not applicable SIGNED BY: RT Flower(Tarun) October 19, 2024 12:24 [facility]09-20-2024 Telephone encounter Note* Telephone Encounter - [...] Lockett LPN July 17, 2024 2:[address] [facility]09-20-2024 Miscellaneous Notes* Telephone Encounter - Vero [...] 17, 2024 2:19 PM documented in this encounterMercy Health St. Charles [facility]08-30-2024 History of Present illness Narrative* Tressa Gonzalez MD - 06/26/2024 11:45 AM EDT Images from the original note were not included. . [facility] [place] Note Patient name: Rajendra Lucero PCP: Phuc Martines DO CC: Follow-up COPD HPI: Rajendra Lucero 68 year old female former 55-pmql-nwtj smoker, quitting in 2008 with PMH significant [...] DATE OF EXAM: Oct 08 2023 1:24PM [facility] 0562 - CT LUNG SCREEN WO [...] (HCC) 02/03/2010: COPD (chronic obstructive pulmonary disease) ([facility]) No date: Coronary artery disease Comment: No CA, CHF. No heart cath. No date: Diverticulosis [...] Take 1 tablet by mouth once daily. gbauucsqdos-eofzintqn-znezmjhn (TRELEGY ELLIPTA) 100-62.5-25 mcg inhalation powder USE [...] mode ambulation 3. Former cigarette smoker -Former 99-wmfm-uelz smoker with sequelae of emphysema -Continued abstinence -Participating in lung cancer screening program with CT due this September 4. Morbid obesity -BMI 43 -Weight loss advised 5. Lung nodule -Right upper lobe nodule stable since 2017 -No further surveillance imaging required Tressa Gonzalez MD [facility] [place] documented in this encounterMercy Health St. [facility]08-30-2024 NoteHNO ID: [id number] Author: TRESSA GONZALEZ MD Service: ? Author Type: Physician Type: Progress Notes Filed: 06/26/2024 14:11 Note Text: . [facility] [place] Note Patient name: Rajendra Lucero PCP: Phuc Martines DO CC: Follow-up COPD HPI: Rajendra Lucero 68 year old female former 61-wchr-petv smoker, quitting in 2008 with PMH significant [...] DATE OF EXAM: Oct 08 2023 1:24PM [facility] 0562 - CT LUNG SCREEN WO [...] HISTORY No date: Chronic hypoxemic respiratory failure ([facility]) 02/03/2010: COPD (chronic obstructive pulmonary disease) ([facility]) No date: Coronary artery disease Comment: No CA, CHF. No heart cath. No date: Diverticulosis [...] Take 1 tablet by mouth once daily. smrdpboakhz-wnyorkvrq-mgikdpya (TRELEGY ELLIPTA) 100-62.5-25 mcg inhalation powder USE [...] nightsweats, unintended weight los (more content not included)...[facility]06-30-2024 History of Present illness Narrative* Damon Eugene APRN.[facility] - 04/26/2024 11:12 AM EDT Images from the original note were not included. Subjective Patient came in with complaints of possible wound infection on the right calf. Patient says she fell 2 weeks ago. Patient says she has been treating at home with antibiotic ointment. Patient denies any fever chills nausea vomiting. The history is provided by the patient. No staff interpreter was used. Review of Systems Constitutional: Negative. [...] disease) (HCC) 02/03/2010 Coronary artery disease No CA, CHF. No heart cath. Diverticulosis of colon [...] Take 1 tablet by mouth once daily. afzxvclmvlw-vxplnpoon-igojkett (TRELEGY ELLIPTA) 100-62.5-25 mcg inhalation powder USE [...] careplan. Damon Eugene APRN.ELVIA documented in this encounterMer[facility]06[facility] Telephone encounter Note * Telephone Encounter - Erica Mckenzie LPN - 04/01/2024 9:51 AM EDT Pt. informed. [facility]06-05-2024 Miscellaneous Notes* Telephone Encounter - Erica [...] is asking for recommendation. If script sent, WILL Mcdonnell RN documented in this encounterMer[facility] St. [facility]06-[facility]-2024 Telephone encounter Note * Telephone Encounter - Phuc Martines DO - 04/01/2024 8:58 AM EDT Okay to wait on chest xray if symptoms continue to improve. If start to worsen again, then need forCXR rx for Diflucan sent in for her for vagina and thrush symptoms Phuc Martines DO [facility]06-03-2024 Telephone encounter Note* Telephone Encounter - [...] is asking for recommendation. If script sent, WILL Mcdonnell RN [facility]05-17-2024 History of Present illness Narrative* Phuc Martines DO - 03/13/2024 1:19 PM EDT CC: Rajendra Lucero is a 68 year old female [...] disease) (HCC) 02/03/2010 Coronary artery disease No CA, CHF. No heart cath. Diverticulosis of colon [...] Take 1 tablet by mouth once daily. xymvncjlecg-uzzpzdffc-wlveoqqv (TRELEGY ELLIPTA) 100-62.5-25 mcg inhalation powder USE [...] bronchitis with chronic obstructive pulmonary disease (COPD) ([facility]) ([facility]) - ICD9: 491.22, ICD10: J44.0, J20.9 (primary diagnosis) Start on rx as below Continue inhalers and IS use F/u with CXR if not improving as well as with it security consulting director - DOXYCYCLINE HYCLATE 100 MG TABLET - AMOXICILLIN 875 MG-POTASSIUM CLAVULANATE 125 MG TABLET - PREDNISONE 10 MG TABLET - XR CHEST 2V FRONTAL/LAT 2. Chronic obstructive pulmonary disease, unspecified COPD type ([facility]) - ICD9: 496, ICD10: J44.9 Start on rx as below Continue inhalers and IS use F/u with CXR if not improving as well as with it security consulting director - DOXYCYCLINE HYCLATE 100 MG TABLET - AMOXICILLIN 875 MG-POTASSIUM CLAVULANATE 125 MG TABLET - PREDNISONE 10 MG TABLET - XR CHEST 2V FRONTAL/LAT 3. Acute otitis media, left - ICD9: 382.9, ICD10: H66.92 Start on rx as below Continue inhalers and IS use F/u with CXR if not improving as well as with it security consulting director - AMOXICILLIN 875 MG-POTASSIUM CLAVULANATE 125 MG [...] Stage 3 severe COPD by GOLD classification ([facility]) - ICD9: 496, ICD10: J44.9 See above 9. Fatigue, unspecified type - ICD9: 780.79, ICD10: R53.83 See above, Chronic, multifactorial 10. Oxygen dependent - ICD9: V46.2, ICD10: Z99.81 See above 11. Morbid obesity with BMI of 45.0-49.9, adult ([facility]) - ICD9: 278.01, V85.42, ICD10: E66.01, Z68.42 Stable - Behavioral intervention and - Eat well program Phuc Martines DO Return if no improvement. Follow up with Phuc Martines DO. To ER if develops chest pain, shortness of breath. Discussed risks, benefits, alternatives, and potential side effects of medications. Patient/Guardian expressed understanding and agreed with the plan. See patient instructions. Phuc Martines DO [address] [place] [address] documented in [address]Mer[facility]04-17-2024 Miscellaneous Notes* Telephone Encounter - Yuli [...] you. Yuli Denton MA. documented in this encounterMercy Health St. [facility]04-03-2024 Instructions* Patient Instructions* Srikanth Estrada APRN.CNP [...] 2 % TOPICAL OINTMENT documented in this encounterMercy Health St. [facility]04-03-2024 History of Present illness Narrative* Srikanth Estrada APRN.CNP - 01/29/2024 1:53 PM EDT Images from the original note were not included. Subjective HPI HPI Rajendra Lucero is a 68 year old female [...] disease) (HCC) 02/03/2010 Coronary artery disease No CA, CHF. No heart cath. Diverticulosis of colon [...] BONY WISDOM TEETH ALLERGIES Aleve [Naproxen] MEDICATIONS bihhippeuyt-wggfblpuz-ahljnuyg (TRELEGY ELLIPTA) 100-62.5-25 mcg inhalation powder USE [...] MUPIROCIN 2 % TOPICAL OINTMENT Srikanth Estrada APRN.AIRCRAFT ARMORER documented in this encounterMercy Health St. [facility]02-29-2024 History of Present illness Narrative* Tressa Gonzalez MD - 12/26/2023 11:45 AM EST Images from the original note were not included. . [facility] [place] Note Patient name: Rajendra Lucero PCP: Phuc Martines DO CC: Follow-up COPD HPI: Rajendra Lucero 68 year old female former 40 [...] k/uL 1.10 Monocytes % % 8.2 Abs Stephens <0.87 k/uL 0.61 Eosinophils % % 2.3 Abs Eosin <0.46 k/uL 0.17 Basophils % % 0.8 Abs Baso <0.11 k/uL 0.06 Immature Granulocytes % % 0.5 Abs Immature Gran <0.10 k/uL 0.04 NRBC /100 WBC 0.0 Absolute nRBC <0.01 k/uL <0.01 Diff Type Auto Imaging / Diagnostic Studies: DATE OF EXAM: Oct 08 2023 1:24PM [facility] 0562 - CT LUNG SCREEN WO [...] disease) (HCC) 02/03/2010 Coronary artery disease No CA, CHF. No heart cath. Diverticulosis of colon (without mention of hemorrhage) Essential hypertension, benign Fibrocystic breast Former smoker Internal hemorrhoids without mention of complication Leiomyoma of uterus, unspecified Obstructive sleep apnea Mild. Not prescribed CPAP, only 2L nasal O2. ALLERGIES Allergen Reactions Aleve [Naproxen] Hives Hives, edema of hands within 1 hour of use vageyvtuvnd-okniixren-bnccluec (TRELEGY ELLIPTA) 100-62.5-25 mcg inhalation powder USE [...] for yearly low-dose chest CT in September Tressa Gonzalez MD [facility] [place] documented in this encounterMercy Health St. [facility]02-27-2024 Miscellaneous Notes* Telephone Encounter - Basia [...] 24, 2023 9:56 AM documented in this encounterMercy Health St. [facility]12-12-2023 History of Present illness Narrative* Pito Galaviz RT(R) - 10/08/2023 1:00 PM EST Radiology Service Progress Note PATIENT NAME: Rajendra Lucero DATE OF SERVICE: October 08, 2023 [...] 08, 2023 2:12 PM documented in this [facility]11-21-2023 History of Present illness Narrative* Baltazar Mosqueda Mammo Tech - 09/17/2023 9:30 AM EST Radiology Service Progress Note PATIENT NAME: Rajendra Lucero DATE OF SERVICE: September 17, 2023 [...] PERIPHERAL IV DATA: Not applicable SIGNED BY: Baltazar Mosqueda Mammo Elisha September 17, 2023 9:26 AM documented in this [facility]10-20-2023 Miscellaneous Notes* Telephone Encounter - Aissatou Whelan [...] diet. Phuc Martines DO documented in this encounterMercy Health St. [facility]10-18-2023 History of Present illness Narrative* Phuc Martines, DO - 08/14/2023 12:06 PM EDT CC: Rajendra Lucero is a 67 year old female who presents to the office for follow up HPI: COPD, feels it is slowly stabilizing compared to how she was feeling 3-4 months ago when she was diagnosed and treated for Covid 19 infection. Has had recent ECHO in the [address] chest was in Aug 2022 and is seeing [employer] Coverer and using her oxygen, appt with Dr. [...] disease) (HCC) 02/03/2010 Coronary artery disease No CA, CHF. No heart cath. Diverticulosis of colon [...] daily. Inhale via nebulizer over 5-15 minutes. odwpprylbsv-speoqrbkq-nnnffmdc (TRELEGY ELLIPTA) 100-62.5-25 mcg inhalation powder USE [...] plan. See patient instructions. Phuc Martines DO [address] [place] [address] documented in [address] encounterMercy [facility] St. [facility]10-02-2023 Miscellaneous Notes* Telephone Encounter - Amanda Pearson LPN - 07/29/2023 11:18 AM EDT ABRAHAM-- NOV--08/14/23 LAST REFILL--08/01/22 90 AND 3 REFILLS LAST LABS--07/30/22 documented in [address] encounterMercy Health St. [facility]08-17-2023 Procedure note* Yasmin Ayala RPFT - 06/13/2023 1:02 PM EDTAssociated [...] Walker None NAME: YOAV López PATIENT NAME: Rajendra Lucero DATE: June 13, 2023 TIME: 1:02 PM Comment: documented in this encounterMercy Health St. [facility]08-17-2023 History of Present illness Narrative* Hodan Christine PA-C - 06/13/2023 1:00 PM EDT Images from the original note were not included. Patient: Rajendra Lucero PCP: Phuc Martines DO CC: follow up HPI: Rajendra Lucero 67 year old morbidly obese female former 51-poqb-ehre smoker, quitting 1971with PMH significant for COPD, oxygen dependence, CAD, [...] disease) (HCC) 02/03/2010 Coronary artery disease No CA, CHF. No heart cath. Diverticulosis of colon [...] daily. Inhale via nebulizer over 5-15 minutes. hihthrrwygj-glrtlbutv-jfowfumc (TRELEGY ELLIPTA) 100-62.5-25 mcg inhalation powder USE [...] cm in diameter. This has fluid attenuation. Warranty Clerk (topogram) images: No additional findings. ASSESSMENT/PLAN: 1. [...] necessary. Hodan Christine PA-C documented in this encounterMercy Health St. [facility]08-17-2023 History of Present illness Narrative* Yasmin Ayala RPFT - 06/13/2023 12:58 PM EDT PULM FUNCTION SMARTBLOCK: Provider: Hodan Christine PA-C Assisting Tech: Yasmin Ayala RPFT Oximetry - Ambulation: 1 documented in this encounterMercy Health St. [facility]08-17-2023 Nurse Note* Isi Osorio LPN - 06/13/2023 12:53 PM EDT Intake information documented in the prior visit with YOAV López today. documented in this encounterMercy Health St. [facility]08-03-2023 Miscellaneous Notes* Telephone Encounter - Lory Chavis - 05/30/2023 4:07 PM EDT Pt called back and confirmed * Telephone Encounter - Tara Porras - 05/30/2023 4:05 PM EDT Patient scheduled for 06/13 oximetry and office visit. Left message for patient to call to confirm. * Telephone Encounter - aTra Porras - 05/30/2023 2:48 PM EDT Please [...] with Dr. Gonzalez or Sara sent to [facility] for O2 recert. Isi Osorio LPN [...] review and advise. Thank you. [place] # [phone] Patrizia Jolly LPN documented in this encounterMercy Health St. [facility]02-07-2023 Miscellaneous Notes* Telephone Encounter - Claudia [...] daily. Inhale via nebulizer over 5-15 minutes. hunyowxtgbf-myjfmbnbg-xknubnhw (TRELEGY ELLIPTA) 100-62.5-25 mcg inhalation powder 3 Each 3 Sig: USE 1 INHALATION DAILY INSTRUCTED RX INSTRUCTIONS: Patient aware RX will be sent to pharmacy. No need to notify patient. Gwendolyn Melendez Pss documented in this encounterMercy Health St. [facility]12-28-2022 Miscellaneous Notes* Telephone Encounter - Yuli [...] fax Yuli Britton Ma documented in this encounterMercy Health St. Charles Hospital12-14-2022 Procedure note* YOAV López - 10/10/2022 [...] Wheel Walker NAME: YOAV López PATIENT NAME: Rajendra Lucero DATE: October 10, 2022 TIME: 11:15 AM Comment: documented in this encounterMercy Health St. [facility]12-14-2022 History of Present illness Narrative* YOAV López - 10/10/2022 10:58 AM EST PULM FUNCTION SMARTBLOCK: Provider: Phuc Martines DO Assisting Tech: YOAV López Oximetry - Ambulation: 1 documented in this encounterMercy Health St. [facility]12-02-2022 History of Present illness Narrative* Vonnie Smith, RT(R) - 09/28/2022 12:50 PM EST Radiology Service Progress Note PATIENT NAME: Rajendra Lucero DATE OF SERVICE: September 28, 2022 [...] 28, 2022 1:09 PM documented in this encounterMercy Health St. [facility]12-02-2022 Instructions* Patient Instructions* Pratibha King APRN.CNP - [...] or things are worsening. documented in this encounterMercy Health St. [facility]12-02-2022 History of Present illness Narrative* Pratibha King APRN.ELVIA - 09/28/2022 12:09 PM EST Chief Complaint Patient presents with: Nasal Congestion: Chest congestion , cough , sx worsened yesterday. Tested + for covid x 1 week ago. HPI Rajendra Lucero is a 67 year old female [...] disease) (HCC) 02/03/2010 Coronary artery disease No CA, CHF. No heart cath. Diverticulosis of colon [...] hours as needed for wheezing/shortness of breath. tolofdkacpe-gajctylew-sjmyapod (TRELEGY ELLIPTA) 100-62.5-25 mcg inhalation powder USE [...] HR Pratibha King APRN.ELVIA documented in this encounterMercy Health St. [facility]11-28-2022 Miscellaneous Notes* Telephone Encounter - Phuc Martines DO - 09/24/2022 7:24 AM EST Paperwork states she needs to have ambulatory oxygen testing within 30 days. Please help her set upthese tests at [place] Phuc Martines DO * Telephone Encounter - Erica Mckenzie LPN - 09/14/2022 3:45 PM EST Information on your desk.. * Telephone Encounter - Phuc Martines DO - 09/12/2022 10:21 PM EST I don't have any of this information on my desk Phuc Martines DO * Telephone Encounter - Christy Galicia LPN - 09/12/2022 3:54 PM EST Malika from [facility] called regarding O2 orders. Malika is faxing another form with instructions that explains what is needed for pt to get O2 covered. The exertion testing with ambulation from February is too old, testing needs to be done within 30 days. Please watch for faxed form. Christy Galicia LPN documented in this encounterMercy Health St. [facility]11-16-2022 Miscellaneous Notes* Letter - Mammography Coordinator - 09/12/2022 2:01 PM EST September 12, 2022 PID: [id number] Rajendra Lucero [address] [place] [address] Dear Ms. Lucero, We are pleased to [...] report will be [facility] as part of your permanent medical record and are available for your continuing care. Thank you for allowing us to help in meeting your health care needs. Sincerely, Dr. Jameson Interpreting Radiologist [facility] (Normal over 40) documented in this encounterMercy Health St. [facility]11-10-2022 Miscellaneous Notes* Telephone Encounter - Basia [...] her to schedule this testing. Pratibha King APRN.ELVIA documented in this encounterMercy Health St. [facility]11-07-2022 History of Present illness Narrative* Bella Rubalcava RDMS - 09/03/2022 1:00 PM EST Radiology Service Progress Note PATIENT NAME: Rajendra Lucero DATE OF SERVICE: September 03, 2022 [...] 03, 2022 1:41 PM documented in this encounterMercy Health St. [facility]11-04-2022 Miscellaneous Notes* Telephone Encounter - Kizzy [...] appointment. Pratibha King APRN.CNP documented in this encounterMercy Health St. [facility]11-02-2022 History of Present illness Narrative* Pito Galaviz RT(Tarun) - 08/29/2022 10:00 AM EDT Radiology Service Progress Note PATIENT NAME: Rajendra Lucero DATE OF SERVICE: August 29, 2022 [...] 29, 2022 3:39 PM documented in this encounterMercy Health St. [facility]10-07-2022 Miscellaneous Notes* Telephone Encounter - Betina Gallardo Ma - 08/03/2022 9:38 AM EDT Office faxed for medicare requirement yearly most recent OV note from 08/01/[address] [facility]. F#: [phone]. Betina Gallardo Ma documented in this encounterMercy Health St. [facility]10-05-2022 History of Present illness Narrative* Phuc Martines, - 08/01/2022 11:51 AM EDT CC: Rajendra Lucero is a 66 year old female who presents to the office for follow up HPI: COPD, feels it is slowly stabilizing/improving compared to how she was feeling 6 months ago. Has had recent ECHO in the [address] chest was >15 months ago and is seeing [employer] Coverer and using her oxygen, will be needing [...] 5.5 4.3 - 5.6 % Final Comment: [place] [employer] guidelines indicate that patients with HgbA1c in the range 5.7-6.4% are at increased risk for development of diabetes, and intervention by lifestyle modification may be beneficial. HgbA1c greater or equal to 6.5% is considered diagnostic of diabetes. 01/26/2022 6.1 (H) 4.3 - 5.6 % Final Comment: [place] [employer] guidelines indicate that patients with HgbA1c in the range 5.7-6.4% are at increased risk for development of diabetes, and intervention by lifestyle modification may be beneficial. HgbA1c greater or equal to 6.5% is considered diagnostic of diabetes. 04/28/2021 5.6 4.3 - 5.6 % Final Comment: [place] [employer] guidelines indicate that patients with HgbA1c in the range 5.7-6.4% are at increased risk for development of diabetes, and intervention by lifestyle modification may be beneficial. HgbA1c greater or equal to 6.5% is considered diagnostic of diabetes. 05/30/2020 5.6 4.3 - 5.6 % Final Comment: [place] [employer] guidelines indicate that patients with HgbA1c in the range 5.7-6.4% are at increased risk for development of diabetes, and intervention by lifestyle modification may be beneficial. HgbA1c greater or equal to 6.5% is considered diagnostic of diabetes. 05/15/2019 5.7 (H) 4.3 - 5.6 % Final Comment: [place] [employer] guidelines indicate that patients with [...] disease) (HCC) 02/03/2010 Coronary artery disease No CA, CHF. No heart cath. Diverticulosis of colon [...] hours as needed for wheezing/shortness of breath. lqalbryahte-svvkybxgo-dpnnbmiu (TRELEGY ELLIPTA) 100-62.5-25 mcg inhalation powder USE [...] oximetry testing as ordered, follow up with it security consulting director as well. Needs to continue oxygen at [...] NOCTURNAL - CT CHEST WO IVCON Phuc Martines, DO Return if no improvement. Follow up with Phuc Martines DO. To ER if develops chest pain, shortness of breath Discussed risks, benefits, alternatives, and potential side effects of medications. Patient/Guardian expressed understanding and agreed with the plan. See patient instructions. Phuc Martines DO [address] [place] [address] documented in [address]Mer[address] [facility]10-05-2022 Instructions* Patient Instructions* Phuc Martines DO - 08/01/2022 11:00 AM EDT Vitamin B12 1,000 mcg a day in the morning supplement documented in this encounterMercy Health St. [facility]09-08-2022 Miscellaneous Notes* Telephone Encounter - Isi Osorio LPN - 07/05/2022 8:45 AM EDT Order faxed. Isi Osorio LPN * Telephone Encounter - Isi Osorio LPN - 07/04/2022 2:21 PM EDT [facility] is requesting order for POC that goes to 6L as discussed at [facility] on 06/22. Patient has transitioned to Medicare as of 06/28. Isi Osorio LPN documented in this encounterMercy Health St. [facility]06-02-2022 Miscellaneous Notes* Telephone Encounter - Isi Osorio LPN - 03/29/2022 3:[address] [facility] called, they did receive order and it is in the que to schedule. Isi Osorio LPN documented in this encounterMercy Health St. [facility]05-20-2022 Procedure note* Yasmin Ayala RRT - 03/16/2022 9:40 AM EDT [...] own portable concentrator up to 5L NAME: Yasmin Ayala RRT PATIENT NAME: Rajendra Lucero DATE: March 16, 2022 TIME: 9:40 AM Comment: documented in this encounterMercy Health St. [facility]05-20-2022 History of Present illness Narrative* Yasmin Ayala RRT - 03/16/2022 9:33 AM EDT PULM FUNCTION SMARTBLOCK: Provider: Hodan Christine PA-C Assisting Tech: Yasmin Ayala RRT Spirometry: 1 Oximetry - Ambulation: 1 System: [id number] documented in this encounterMercy Health St. [facility]05-20-2022 History of Present illness Narrative* Hodan Christine PA-C - 03/16/2022 9:24 AM EDT [facility] [place], 03/16/2022: Name: Rajendra Lucero : 1955 The patient is here today by herself. HPI: Rajendra Lucero is a 66 yo female with pmh significant for CAD, diverticulosis, HTN, RXOY (mild),and COPD. Former smoker, quit 2008. 40 [...] edema, orthopnea. GI: No heartburn, dysphagia, diarrhea. Uro/LITHOSTRIPPER: No dysuria, hesitancy, nocturia. Musculoskeletal: No pain. [...] answers. Hodan Christine PA-C documented in this encounterMercy Health St. [facility]05-20-2022 Nurse Note* Isi Osorio LPN - 03/16/2022 9:06 AM EDT Intake information documented in the prior visit with Yasmin Ayala RRT today. documented in this encounterMercy Health St. [facility]05-11-2022 Miscellaneous Notes* Telephone Encounter - Karla Jacob LPN - 03/07/2022 11:36 AM EDT Patient phones requesting refills as follows: Pending Prescriptions Disp Refills AMLODIPINE 5 MG TABLET 90 tablet 1 Sig: Take 1 tablet by mouth once daily. LALY: No ABRAHAM-10/31/21 Labs-01/26/22 NOV-05/01/22 med filled 11/07/21 Please review and advise. Karla Jacob LPN documented in this encounterMercy Health St. [facility]04-15-2022 History of Present illness Narrative* Hodan Christine PA-C - 02/09/2022 1:00 PM EDT [facility] [place], 02/09/2022: Name: Rajendra Lucero : 1955 The patient is here today by herself. HPI: Rajendra Lucero is a 66 yo female with [...] answers. Hodan Christine PA-C documented in this encounterMercy Health St. [facility]04-05-2022 History of Present illness Narrative* Phuc Martines, - 01/30/2022 12:31 PM EDT CC: Rajendra Lucero is a 66 year old female [...] disease) (HCC) 02/03/2010 Coronary artery disease No CA, CHF. No heart cath. Diverticulosis of colon [...] WISDOM TEETH Current Outpatient Medications Medication Sig twxddfhcbtq-imcaokfft-ctiwudhc (TRELEGY ELLIPTA) 100-62.5-25 mcg inhalation powder USE [...] plan. See patient instructions. Phuc Martines DO [address] [place] [address] documented in [address] encounterMercy [address] [facility]03-16-2021 History of Present illness Narrative* Vonnie SmithRt), Elisha - 01/10/2021 11:10 AM EDT Radiology Service Progress Note PATIENT NAME: Rajendra Lucero DATE OF SERVICE: January 10, 2021 [...] 10, 2021 11:09 AM documented in this encounterMercy Health St. [facility]07-23-2019 History of Past illness Narrative* Problem Noted Date Resolved Date Routine physical examination 05/19/2019 Screening for colon cancer 08/27/201810/13 Overview: Added automatically from request for surgery [id number] Acute bronchitis with chroni c obstructive pulmonary [...] of this encounter (statuses as of 01/30/2022) [facility] History of Past illness Narrative* Problem Noted Date Resolved Date Routine physical examination 05/19/2019 Screening for colon cancer 08/27/201810/13 Overview: Added automatically from request for surgery [id number] Acute bronchitis with chroni c obstructive pulmonary [...] of this encounter (statuses as of 02/09/2022) [facility] History of Past illness Narrative* Problem Noted Date Resolved Date Routine physical examination 05/19/2019 Screening for colon cancer 08/27/201810/13 Overview: Added automatically from request for surgery [id number] Acute bronchitis with chroni c obstructive pulmonary [...] of this encounter (statuses as of 03/07/2022) [facility] History of Past illness Narrative* Problem Noted Date Resolved Date Routine physical examination 05/19/2019 Screening for colon cancer 08/27/201810/13 Overview: Added automatically from request for surgery [id number] Acute bronchitis with chroni c obstructive pulmonary [...] of this encounter (statuses as of 03/16/2022) [facility] History of Past illness Narrative* Problem Noted Date Resolved Date Routine physical examination 05/19/2019 Screening for colon cancer 08/27/201810/13 Overview: Added automatically from request for surgery [id number] Acute bronchitis with chroni c obstructive pulmonary [...] of this encounter (statuses as of 03/16/2022) [facility]07-23-2019 History of Past illness Narrative* Problem Noted Date Resolved Date Routine physical examination 05/19/2019 Screening for colon cancer 08/27/201810/13 Overview: Added automatically from request for surgery [id number] Acute bronchitis with chroni c obstructive pulmonary [...] of this encounter (statuses as of 03/29/2022) [facility]07-23-2019 History of Past illness Narrative* Problem Noted Date Resolved Date Routine physical examination 05/19/2019 Screening for colon cancer 08/27/201810/13 Overview: Added automatically from request for surgery [id number] Acute bronchitis with chroni c obstructive pulmonary [...] of this encounter (statuses as of 07/04/2022) [facility]-2019 History of Past illness Narrative* Problem Noted Date Resolved Date Routine physical examination 05/19/2019 Screening for colon cancer 08/27/201810/13 Overview: Added automatically from request for surgery [id number] Acute bronchitis with chroni c obstructive pulmonary [...] of this encounter (statuses as of 07/05/2022) [facility]2019 History of Past illness Narrative* Problem Noted Date Resolved Date Routine physical examination 05/19/2019 Screening for colon cancer 08/27/201810/13 Overview: Added automatically from request for surgery [id number] Acute bronchitis with chroni c obstructive pulmonary [...] of this encounter (statuses as of 08/01/2022) [facility]2019 History of Past illness Narrative* Problem Noted Date Resolved Date Routine physical examination 05/19/2019 Screening for colon cancer 08/27/201810/13 Overview: Added automatically from request for surgery [id number] Acute bronchitis with chroni c obstructive pulmonary [...] of this encounter (statuses as of 08/03/2022) [facility]2019 History of Past illness Narrative* Problem Noted Date Resolved Date Routine physical examination 05/19/2019 Screening for colon cancer 08/27/201810/13 Overview: Added automatically from request for surgery [id number] Acute bronchitis with chroni c obstructive pulmonary [...] of this encounter (statuses as of 08/31/2022) [facility]2019 History of Past illness Narrative* Problem Noted Date Resolved Date Routine physical examination 05/19/2019 Screening for colon cancer 08/27/201810/13 Overview: Added automatically from request for surgery [id number] Acute bronchitis with chroni c obstructive pulmonary [...] of this encounter (statuses as of 09/10/2022) [facility]2019 History of Past illness Narrative* Problem Noted Date Resolved Date Routine physical examination 05/19/2019 Screening for colon cancer 08/27/201810/13 Overview: Added automatically from request for surgery [id number] Acute bronchitis with chroni c obstructive pulmonary [...] of this encounter (statuses as of 09/14/2022) [facility]2019 History of Past illness Narrative* Problem Noted Date Resolved Date Routine physical examination 05/19/2019 Screening for colon cancer 08/27/201810/13 Overview: Added automatically from request for surgery [id number] Acute bronchitis with chroni c obstructive pulmonary [...] of this encounter (statuses as of 09/28/2022) [facility]2019 History of Past illness Narrative* Problem Noted Date Resolved Date Routine physical examination 05/19/2019 Screening for colon cancer 08/27/201810/13 Overview: Added automatically from request for surgery [id number] Acute bronchitis with chroni c obstructive pulmonary [...] of this encounter (statuses as of 10/10/2022) [facility]2019 History of Past illness Narrative* Problem Noted Date Resolved Date Routine physical examination 05/19/2019 Screening for colon cancer 08/27/201810/13 Overview: Added automatically from request for surgery [id number] Acute bronchitis with chroni c obstructive pulmonary [...] of this encounter (statuses as of 10/19/2022) [facility]2019 History of Past illness Narrative* Problem Noted Date Resolved Date Routine physical examination 05/19/2019 Screening for colon cancer 08/27/201810/13 Overview: Added automatically from request for surgery [id number] Acute bronchitis with chroni c obstructive pulmonary [...] of this encounter (statuses as of 10/30/2022) [facility]2019 History of Past illness Narrative* Problem Noted Date Resolved Date Routine physical examination 05/19/2019 Screening for colon cancer 08/27/201810/13 Overview: Added automatically from request for surgery [id number] Acute bronchitis with chroni c obstructive pulmonary [...] of this encounter (statuses as of 12/05/2022) [facility]2019 History of Past illness Narrative* Problem Noted Date Diagnosed Date Resolved Date Routine physical examination 05/19/2019 10/13/2019 Screening for colon cancer 08/27/2018 1 12/14/2018 Overview: Added automatically from request for surgery [id number] Acute bronchitis with chroni c obstructive pulmonary [...] of this encounter (statuses as of 05/30/2023) [facility]2019 History of Past illness Narrative* Problem Noted Date Diagnosed Date Resolved Date Routine physical examination 05/19/2019 10/13/2019 Screening for colon cancer 08/27/2018 1 12/14/2018 Overview: Added automatically from request for surgery [id number] Acute bronchitis with chroni c obstructive pulmonary [...] of this encounter (statuses as of 06/13/2023) [facility]2019 History of Past illness Narrative* Problem Noted Date Diagnosed Date Resolved Date Routine physical examination 05/19/2019 10/13/2019 Screening for colon cancer 08/27/2018 1 12/14/2018 Overview: Added automatically from request for surgery [id number] Acute bronchitis with chroni c obstructive pulmonary [...] of this encounter (statuses as of 06/13/2023) [facility] History of Past illness Narrative* Problem Noted Date Diagnosed Date Resolved Date Routine physical examination 05/19/2019 10/13/2019 Screening for colon cancer 08/27/2018 1 12/14/2018 Overview: Added automatically from request for surgery [id number] Acute bronchitis with chroni c obstructive pulmonary disease (COPD) ([facility]) 11/06/2017 9 Well adult exam 11/09/2016 10/13/2019 [...] of this encounter (statuses as of 07/30/2023) [facility] History of Past illness Narrative* Problem Noted Date Diagnosed Date Resolved Date Routine physical examination 05/19/2019 10/13/2019 Screening for colon cancer 08/27/2018 1 12/14/2018 Overview: Added automatically from request for surgery [id number] Acute bronchitis with chroni c obstructive pulmonary disease (COPD) ([facility]) 11/06/2017 9 Well adult exam 11/09/2016 10/13/2019 [...] of this encounter (statuses as of 08/14/2023) [facility]2019 History of Past illness Narrative* Problem Noted Date Diagnosed Date Resolved Date Routine physical examination 05/19/2019 10/13/2019 Screening for colon cancer 08/27/2018 1 12/14/2018 Overview: Added automatically from request for surgery [id number] Acute bronchitis with chroni c obstructive pulmonary [...] of this encounter (statuses as of 08/16/2023) [facility] History of Past illness Narrative* Problem Noted Date Diagnosed Date Resolved Date Routine physical examination 05/19/2019 10/13/2019 Screening for colon cancer 08/27/2018 1 12/14/2018 Overview: Added automatically from request for surgery [id number] Acute bronchitis with chroni c obstructive pulmonary [...] of this encounter (statuses as of 2023) [facility] History of Past illness Narrative* Problem Noted Date Diagnosed Date Resolved Date Routine physical examination 05/19/2019 10/13/2019 Screening for colon cancer 08/27/2018 1 12/14/2018 Overview: Added automatically from request for surgery [id number] Acute bronchitis with chroni c obstructive pulmonary [...] of this encounter (statuses as of 2023) [facility] History of Past illness Narrative* Problem Noted Date Diagnosed Date Resolved Date Routine physical examination 05/19/2019 10/13/2019 Screening for colon cancer 08/27/2018 1 12/14/2018 Overview: Added automatically from request for surgery [id number] Acute bronchitis with chroni c obstructive pulmonary [...] of this encounter (statuses as of 2023) [facility] History of Past illness Narrative* Problem Noted Date Diagnosed Date Resolved Date Routine physical examination 05/19/2019 10/13/2019 Screening for colon cancer 08/27/2018 1 12/14/2018 Overview: Added automatically from request for surgery [id number] Acute bronchitis with chroni c obstructive pulmonary [...] of this encounter (statuses as of 2023) [facility] History of Past illness Narrative* Problem Noted Date Diagnosed Date Resolved Date Routine physical examination 05/19/2019 10/13/2019 Screening for colon cancer 08/27/2018 1 12/14/2018 Overview: Added automatically from request for surgery [id number] Acute bronchitis with chroni c obstructive pulmonary [...] 45 mmHg and 73.2% above 50 mmHg. Joey-Adrby/Periodic Breathing was not present. PAIN FLANK 08/13/2008 10/13/2019 OBESITY 05/04/2006 10/13/2019 PLANTAR FASCIITIS 05/04/2006 08/19/2006 Essential hypertension, benign 07/07/2008 Tobacco use disorder 011 documented as of this encounter (statuses as of 09/05/2023) [facility] History of Past illness Narrative* Problem Noted Date Diagnosed Date Resolved Date Routine physical examination 05/19/2019 10/13/2019 Screening for colon cancer 08/27/2018 1 12/14/2018 Overview: Added automatically from request for surgery [id number] Acute bronchitis with chroni c obstructive pulmonary [...] of this encounter (statuses as of 09/18/2023) [facility] History of Past illness Narrative* Problem Noted Date Diagnosed Date Resolved Date Routine physical examination 05/19/2019 10/13/2019 Screening for colon cancer 08/27/2018 1 12/14/2018 Overview: Added automatically from request for surgery [id number] Acute bronchitis with chroni c obstructive pulmonary [...] of this encounter (statuses as of 10/09/2023) [facility] History of Past illness Narrative* Problem Noted Date Diagnosed Date Resolved Date Routine physical examination 05/19/2019 10/13/2019 Screening for colon cancer 08/27/2018 1 12/14/2018 Overview: Added automatically from request for surgery [id number] Acute bronchitis with chroni c obstructive pulmonary [...] of this encounter (statuses as of 12/25/2023) [facility] History of Past illness Narrative* Problem Noted Date Diagnosed Date Resolved Date Routine physical examination 05/19/2019 10/13/2019 Screening for colon cancer 08/27/2018 1 12/14/2018 Overview: Added automatically from request for surgery [id number] Acute bronchitis with chroni c obstructive pulmonary disease (COPD) ([facility]) 11/06/2017 9 Well adult exam 11/09/2016 10/13/2019 [...] of this encounter (statuses as of 12/27/2023) [facility]2019 History of Past illness Narrative* Problem Noted Date Diagnosed Date Resolved Date Routine physical examination 05/19/2019 10/13/2019 Screening for colon cancer 08/27/2018 1 12/14/2018 Overview: Added automatically from request for surgery [id number] Acute bronchitis with chroni c obstructive pulmonary disease (COPD) ([facility]) 11/06/2017 9 Well adult exam 11/09/2016 10/13/2019 [...] of this encounter (statuses as of 01/30/2024) [facility] History of Past illness Narrative* Problem Noted Date Diagnosed Date Resolved Date Routine physical examination 05/19/2019 10/13/2019 Screening for colon cancer 08/27/2018 1 12/14/2018 Overview: Added automatically from request for surgery [id number] Acute bronchitis with chroni c obstructive pulmonary [...] of this encounter (statuses as of 02/13/2024) [facility] Author Milena Rodas [facility] Note Date/Time February 23, 2025 2:1 2pm [facility] Medical Records Department [address] [place] [address] Counseling Note - Pharmacy 02/23/25 1410 MR#: [id number] Acct: [id number] Name: RAJENDRA LUCERO Rep #:[id number] 23 : 1955 69 From: Milena Rodas PCP: Dr. Phuc Martines, Status:AD M IN Y Location: [facility] [id number] Pharmacy [facility] Service has performed discharge [...] of their dischargemedications. Patient counseled by pharmacy service associatePete. Medications at Discharge Home Medications Oxygen, Home [...] sodium chloride 0.65 % nasal spray aerosol (Cimarron Saline) 1 spray intranasal BID PRN dry [...] tabs 02/23/25 02/23/25 1412 <Electronically signed by Milena Rodas> Date _ Milena oRdas Cosigner Signature (if applicable): Date CC: ~ Signed [facility] Work Phone: Evaluation note* Diagnosis Chronic obstructive pulmonary disease, unspecified COPD type (HCC)- Primary Essential hypertension Unspecified essential hypertension Impaired fasting glucose Dyslipidemia Other and unspecified hyperlipidemia Vitamin D deficiency Unspecified vitamin D deficiency Lightheaded Dizziness and giddiness documented [facility] this [facility] Diagnosis Chronic obstructive pulmonary disease, unspecified COPD type (HCC)- Primary Dyspnea and respiratory abnormalities Other dyspnea and respiratory abnormality [facility] this [facility] Diagnosis Chronic obstructive pulmonary disease, unspecified COPD type (HCC) [facility] Diagnosis Chronic obstructive pulmonary disease, unspecified COPD type (HCC) [facility] Diagnosis Chronic obstructive pulmonary disease, unspecified COPD type (HCC)- Primary Chronic hypoxemic respiratory failure (HCC) Chronic respiratory failure Dyspnea and respiratory abnormalities Other dyspnea and respiratory abnormality Former smoker Personal history of tobacco use, presenting hazards to health [facility] Diagnosis Chronic obstructive pulmonary disease, unspecified COPD type (HCC)- Primary [facility] Diagnosis Chronic obstructive pulmonary disease, unspecified COPD type (HCC)- Primary Essential hypertension Unspecified essential hypertension Need for influenza vaccination Need for prophylactic vaccination and inoculation against influenza Impaired fasting glucose Dyslipidemia Other and unspecified hyperlipidemia Chronic respiratory failure with hypoxia (HCC) Chronic respiratory failure Stage 3 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) Oxygen dependent Dependence on supplemental oxygen [facility] Diagnosis Cyst of spleen- Primary Other diseases of spleen [facility] Diagnosis Encounter for screening mammogram for breast cancer [facility] Diagnosis COVID- Primary Chronic obstructive pulmonary disease, unspecified COPD type (HCC) Bacterial sinusitis Unspecified sinusitis (chronic) Oxygen dependent Dependence on supplemental oxygen [facility] Diagnosis Chronic obstructive pulmonary disease, unspecified COPD type (HCC) Oxygen dependent Dependence on supplemental oxygen [facility] Diagnosis Cyst of spleen- Primary Other diseases of spleen [facility] Diagnosis Chronic obstructive pulmonary disease, unspecified COPD type (HCC)- Primary Oxygen dependent Dependence on supplemental oxygen [facility] Diagnosis Chronic obstructive pulmonary disease, unspecified COPD type (HCC) [facility] Diagnosis Chronic obstructive pulmonary disease, unspecified COPD type (HCC)- Primary Oxygen dependent Dependence on supplemental oxygen [facility] Diagnosis Chronic obstructive pulmonary disease, unspecified COPD type (HCC) Oxygen dependent Dependence on supplemental oxygen [facility] Diagnosis COPD, severe (HCC)- Primary Chronic airway obstruction, not elsewhere classified Chronic hypoxemic respiratory failure (HCC) Chronic respiratory failure Former cigarette smoker Personal history of tobacco use, presenting hazards to health Morbid obesity (HCC) Morbid obesity [facility] Diagnosis Essential hypertension Unspecified essential hypertension [facility] Diagnosis Essential hypertension- Primary Unspecified essential hypertension Need for influenza vaccination Need for prophylactic vaccination and inoculation against influenza Encounter for screening mammogram for malignant neoplasm of breast Other screening mammogram Need for RSV immunization Need for prophylactic vaccination and inoculation against respiratory syncytial virus Vitamin D deficiency Unspecified vitamin D deficiency Impaired fasting glucose Stage 3 severe COPD by GOLD classification ([facility]) Oxygen dependent Dependence on supplemental oxygen Fatigue, unspecified type Rash of foot Dyslipidemia Other and unspecified hyperlipidemia [facility]* Diagnosis Encounter for screening mammogram for breast cancer [facility] Diagnosis Cyst of spleen Other diseases of spleen [facility] Diagnosis Chronic obstructive pulmonary disease, unspecified COPD type (HCC) Chronic respiratory failure with hypoxia (HCC) Chronic respiratory failure Stage 3 severe COPD by GOLD classification ([facility]) Oxygen dependent Dependence on supplemental oxygen [facility] Diagnosis Cyst of spleen Other diseases of spleen [facility] Diagnosis Chronic obstructive pulmonary disease, unspecified COPD type (HCC)- Primary Oxygen dependent Dependence on supplemental oxygen [facility] Diagnosis Encounter for screening mammogram for malignant neoplasm of breast Other screening mammogram [facility] Diagnosis Former cigarette smoker Personal history of tobacco use, presenting hazards to health documented in this encounter [facility] note* Diagnosis Dyslipidemia- Primary Other and unspecified hyperlipidemia Impaired fasting glucose [facility]* Diagnosis Stage 3 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)- Primary Chronic respiratory failure with hypoxia (HCC) Chronic respiratory failure Morbid obesity with BMI of 45.0-49.9, adult (HCC) Morbid obesity Lung nodules Other nonspecific abnormal finding of lung field [facility] Diagnosis Skin infection- Primary Unspecified local infection of skin and subcutaneous tissue [facility] Diagnosis Acute bronchitis with chronic obstructive pulmonary disease (COPD) (HCC) (HCC)- Primary Obstructive chronic bronchitis with acute bronchitis Chronic obstructive pulmonary disease, unspecified COPD type (HCC) Acute otitis media, left Unspecified otitis media Dyslipidemia Other and unspecified hyperlipidemia Impaired fasting glucose Vitamin D deficiency Unspecified vitamin D deficiency Essential hypertension Unspecified essential hypertension Stage 3 severe COPD by GOLD classification ([facility]) Fatigue, unspecified type Oxygen dependent Dependence on supplemental oxygen Morbid obesity with BMI of 45.0-49.9, adult (HCC) Morbid obesity Thoracic aortic ectasia (HCC) Thoracic aortic ectasia [facility]* Diagnosis Stage 3 severe COPD by GOLD classification ([facility])- Primary Chronic hypoxemic respiratory failure (HCC) Chronic respiratory failure Former cigarette smoker Personal history of tobacco use, presenting hazards to health Morbid obesity (HCC) Morbid obesity [facility] Diagnosis Essential hypertension Unspecified essential hypertension documented in this encounter [facility] note* Diagnosis COVID Bacterial sinusitis Unspecified sinusitis (chronic) Chronic obstructive pulmonary disease, unspecified COPD type (HCC) [facility] Diagnosis Acute gout involving toe of right foot, unspecified cause [facility] Diagnosis Multiple lung nodules- Primary Other nonspecific abnormal finding of lung field Encounter for screening for lung cancer Former tobacco use Personal history of tobacco use, presenting hazards to health [facility]* Diagnosis Former cigarette smoker Personal history of tobacco use, presenting hazards to health [facility]* Diagnosis Encounter for screening mammogram for breast cancer [facility] Diagnosis Dyslipidemia- Primary Other and unspecified hyperlipidemia Chronic obstructive pulmonary disease, unspecified COPD type (HCC) Impaired fasting glucose documented in this encounter [facility] note* Diagnosis Encounter for screening mammogram for breast cancer [facility] Diagnosis Stage 3 severe COPD by GOLD classification ([facility])- Primary Chronic respiratory failure with hypoxia (HCC) Chronic respiratory failure Former cigarette smoker Personal history of tobacco use, presenting hazards to health [facility]* Diagnosis Medicare annual wellness visit, subsequent- Primary Routine general medical examination at a health care facility Hair thinning Alopecia, unspecified Fatigue, unspecified type Impaired fasting glucose Dyslipidemia Other and unspecified hyperlipidemia Vitamin D deficiency Unspecified vitamin D deficiency Stage 3 severe COPD by GOLD classification ([facility]) Essential hypertension Unspecified essential hypertension Oxygen dependent Dependence on supplemental oxygen Morbid obesity with BMI of 45.0-49.9, adult (HCC) Morbid obesity [facility] Diagnosis Multiple lung nodules- Primary Other nonspecific abnormal finding of lung field Former tobacco use Personal history of tobacco use, presenting hazards to health [facility] Diagnosis Lung nodules- Primary Other nonspecific abnormal finding of lung field documented [facility] Diagnosis Hospital discharge follow-up- Primary Other follow-up examination Atrial flutter, unspecified type (HCC) Congestive heart failure, unspecified HF chronicity, unspecified heart failure type (HCC) Stage 3 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) Oxygen dependent Dependence on supplemental oxygen Essential hypertension Unspecified essential hypertension [facility] Diagnosis Daytime sleepiness- Primary Stage 3 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) Chronic respiratory failure with hypoxia (HCC) Chronic respiratory failure [facility] Diagnosis Essential (primary) hypertension Unspecified essential hypertension Atrial flutter, unspecified type (HCC) documented [facility] Diagnosis Acute cystitis with hematuria Acute cystitis Candidal intertrigo Candidiasis of skin and nails Confusion Unspecified psychosis [facility] Diagnosis Acute confusion- Primary Delirium due to conditions classified elsewhere Atrial flutter, unspecified type (HCC) Tachycardia Tachycardia, unspecified Stage 3 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) Congestive heart failure, unspecified HF chronicity, unspecified heart failure type (HCC) Hypersomnia Hypersomnia, unspecified Hives Urticaria, unspecified Abnormal pulse oximetry Abnormal arterial blood gases documented [facility] Diagnosis Hospital discharge follow-up- Primary Other follow-up examination Atrial flutter, unspecified type (HCC) Stage 3 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) RUQ pain Abdominal pain, right upper quadrant Congestive heart failure, unspecified HF chronicity, unspecified heart failure type (HCC) Essential hypertension Unspecified essential hypertension [facility] Diagnosis Elevated alkaline phosphatase level- Primary Other nonspecific abnormal serum enzyme levels documented in this encounter [facility] and [facility] note Author Virginia Henriquez [facility] Note Date/Time April 23, 2025 10:1 5pm [facility] Medical Records Department [address] [place] [address] H&P Exam - Hospitalist 04/23/25 5302 MR#: [id number] Acct: [id number] Name: RAJENDRA LUCERO Rep #:[id number] : 1955 69 From: Virginia Henriquez MD PCP: Dr. Phuc Martines, DO Status:AD M IN Location: [place] [id number] 1 HPI - General General Date of [...] abuse recently cut back [facility] with history of increased [...] 1 and placed on a diltiazem drip. [facility] Medical History (Updated 04/23/25 @ 22:15 [...] BID PRN dry 02/19/25 Unknown History aerosol (Cimarron Saline) nasal passages triamcinolone acetonide 0.5 % [...] 83.8 H, Lymph % (Auto) 7.9 L, Stephens % (Auto) 6.6, Eos % (Auto) 0.8, [...] Clarity Clear, Urine pH 6.0, Ur Specific Cutler 1.015, Urine Protein 30 H, Urine Glucose [...] IMPRESSION: Cardiomegaly with mild congestion. Reading Location: [facility] Brain CT 04/23/25 18:04 IMPRESSION: 1. No acute intracranial hemorrhage, midline shift or mass effect. If symptoms persist, further evaluation with MRI is recommended. 2. Mild small vessel ischemic/degenerative changes. 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 Elena did discuss this with her [...] Time: 16minutes. Charges/Coding Visit Charges Inpatient E&M: 63502 Init Hosp L3 Procedures Hospitalists Procedures: 41164 Advncd Care Plan 30 Min 04/23/252214 <Electronically signed by Virginia Henriquez MD> Cosigner Signature (if applicable): CC: Dr. Virginia Henriquez MD; Dr. Phuc Martines, DO~ Signed [facility] Work Phone: Hospital Discharge instructionsAmbulatory Orders* Electrophysiology Location: None Selected [facility] Work Phone: Reason for referral (narrative)* Outpatient Procedure (Routine) - Authorized Specialty Diagnoses / Procedures Referred By Contac t Referred To [facility] Diagnoses Chronic obstructive pulmonary disease, unspecified COPD type (HCC) Procedures ECHO ECHO TTHRC R-T 2D W/WOM-MODE COMPL SPEC&COLR Hodan Hernández PA-C [address] [address] [facility] [place] [address] [place] [address] Referral ID Status Reason Start Date Expiration Date Visits Requested Visits Authorized [id number] Authorized Auto-Generat ed Referral OON/Self Pay Override 02/09/2022 02/09/2023 1 1 * Outpatient Procedure (Routine) - Authorized Specialty Diagnoses / Procedures Referred By Contac t Referred To Contact [facility] Diagnoses Chronic obstructive pulmonary disease, unspecified COPD type (HCC) Procedures OXIMETRY WITH AMBULATION NONINVASIVE EAR/PULSE OXIMETRY MULTIPLE Hodan Tejada PA-C [address] [address] [facility] [place] [address] [place] [address] Referral ID Status Reason Start Date Expiration Date Visits Requested Visits Authorized [id number] Authorized Auto-Generat ed Referral OON/Self Pay Override 02/09/2022 03/11/2023 1 1 * Outpatient Procedure (Routine) - Authorized Specialty Diagnoses / Procedures Referred By Contac t Referred To Contact [facility] Diagnoses Chronic obstructive pulmonary disease, unspecified COPD type (HCC) Procedures SPIROMETRY BASELINE ONLY SPMTRY W/VC EXPIRATORY MARTIN W/WO MXML VOL VNTJ Hodan Christine PA-C [address] [address] Res[facility] [place] [id number] Referral ID Status Reason Start Date Expiration Date Visits Requested Visits Authorized [id number] Authorized Auto-Generat ed Referral OON/Self Pay Override 02/09/2022 03/11/2023 [address] [facility] for referral (narrative)* Diagnostic Procedure Only (Routine) - Authorized Specialty Diagnoses / Procedures Referred By Contac t Referred To Contact US IMAGING Diagnoses Cyst of spleen Procedures US ABD SPLEEN US ABDOMINAL REAL TIME W/IMAGE LIMITED Pratibha King, MANUFACTURING ENGINEER MACHINING.AIRCRAFT ARMORER [address] [place] [address] Us Imaging Referral ID Status Reason Start Date Expiration Date Visits Requested Visits Authorized [id number] Authorized Auto-Generat ed Referral 08/30/2022 09/29/2023 [address] [facility] for referral (narrative)* Diagnostic Procedure Only (Routine) - Authorized Specialty Diagnoses / Procedures Referred By Contac t Referred To Contact BR IMAGING Diagnoses Encounter for screening mammogram for breast cancer Procedures ANUSHA SCREENING SCREENING MAMMOGRAPHY BI 2-VIEW BREAST INC CAD Phuc Martines DO [address] [place] [address] Br Imaging [address] [facility] [place] [address] Referral ID Status Reason Start Date Expiration Date Visits Requested Visits Authorized [id number] Authorized Auto-Generat ed Referral 09/05/2022 10/05/2023 [address] [facility] for referral (narrative)* Diagnostic Procedure Only (Routine) - Authorized Specialty Diagnoses / Procedures Referred By Sonaliac t Referred To Contact US IMAGING Diagnoses Cyst of spleen Procedures US ABD SPLEEN US ABDOMINAL REAL TIME W/IMAGE LIMITED Pratibha King APRN.CNP [address] [place] [address] Us Imaging Referral ID Status Reason Start Date Expiration Date Visits Requested Visits Authorized [id number] Authorized Auto-Generat ed Referral 03/06/2023 10/06/2023 [address] [facility] for referral (narrative)* Outpatient Procedure (Routine) - Authorized Specialty Diagnoses / Procedures Referred By Contac t Referred To Contact [facility] Diagnoses Chronic obstructive pulmonary disease, unspecified COPD type (HCC) Oxygen dependent Procedures OXIMETRY WITH AMBULATION NONINVASIVE EAR/PULSE OXIMETRY Hodan Sewell PA-C [address] [place] [address] [facility] [place] [address] [place] [address] Referral ID Status Reason Start Date Expiration Date Visits Requested Visits Authorized [id number] Authorized Auto-Generat ed Referral 05/30/2023 06/28/2024 [address] [facility] for referral (narrative)* Diagnostic Procedure Only (Routine) - Authorized Specialty Diagnoses / Procedures Referred By Contac t Referred To Contact BR IMAGING Diagnoses Encounter for screening mammogram for malignant neoplasm of breast Procedures ANUSHA SCREENING SCREENING MAMMOGRAPHY BI 2-VIEW BREAST INC CAD Phuc Martines, DO [address] [place] [address] Br Imaging [address] [place] [address] Referral ID Status Reason Start Date Expiration Date Visits Requested Visits Authorized [id number] Authorized Auto-Generat ed Referral 09/12/2024 1 1 [facility] for referral (narrative)* Diagnostic Procedure Only (Routine) - Closed Specialty Diagnoses / Procedures Referred By Contac t Referred To Contact BR IMAGING Diagnoses Encounter for screening mammogram for breast cancer Procedures ANUSHA SCREENING SCREENING MAMMOGRAPHY BI 2-VIEW BREAST INC CAD Phuc Martines, DO [address] [place] [address] Br Imaging [address] [place] [address] Referral ID Status Reason Start Date Expiration Date V isits Requested Visits Authorized [id number] Closed Auto-Generate d Referral 09/05/2022 10/05/2023 1 1 [facility] for referral (narrative)* Diagnostic Procedure Only (Routine) - Closed Specialty Diagnoses / Procedures Referred By Contac t Referred To Contact US IMAGING Diagnoses Cyst of spleen Procedures US ABD SPLEEN US ABDOMINAL REAL TIME W/IMAGE LIMITED Pratibha King APRN.AIRCRAFT ARMORER [address] [place] [address] [place] [address] Referral ID Status Reason Start Date Expiration Date V isits Requested Visits Authorized [id number] Closed Auto-Generate d Referral 03/06/2023 10/06/2023 [address] [facility] for referral (narrative)* Diagnostic Procedure Only (Routine) - Pending Review Specialty Diagnoses / Procedures Referred By Contac t Referred To Contact US IMAGING Diagnoses Cyst of spleen Procedures US ABD SPLEEN US ABDOMINAL REAL TIME W/IMAGE LIMITED Pratibha King APRN.CNP [address] [place] [address] [place] [address] Referral ID Status Reason Start Date Expiration Date Visits Requested Visits Authorized [id number] Pending Review Auto-Generat ed Referral 08/30/2022 09/29/2023 [address] [facility] for referral (narrative)* Outpatient Procedure (Routine) - Closed Specialty Diagnoses / Procedures Referred By Sonaliac t Referred To Contact [facility] Diagnoses Chronic obstructive pulmonary disease, unspecified COPD type (HCC) Oxygen dependent Procedures OXIMETRY WITH AMBULATION NONINVASIVE EAR/PULSE OXIMETRY MULTIPLE Phuc Maldonado DO [address] [place] [address] [facility] [place] [address] [place], [place] [phone] Referral ID Status Reason Start Date Expiration Date V isits Requested Visits Authorized [id number] Closed Auto-Generate d Referral 09/24/2022 10/24/2023 1 1 [facility] for referral (narrative)* Diagnostic Procedure Only (Routine) - Closed Specialty Diagnoses / Procedures Referred By Contac t Referred To Contact BR IMAGING Diagnoses Encounter for screening mammogram for malignant neoplasm of breast Procedures ANUSHA SCREENING SCREENING MAMMOGRAPHY BI 2-VIEW BREAST INC CAD Phuc Martines DO [address] [place] [address] Br Imaging [address] [place] [address] Referral ID Status Reason Start Date Expiration Date V isits Requested Visits Authorized [id number] Closed Auto-Generate d Referral 08/14/2023 09/12/2024 1 1 [facility] for referral (narrative)* Diagnostic Procedure Only (Routine) - New Request Specialty Diagnoses / Procedures Referred By Marcy t Referred To Contact BR IMAGING Diagnoses Encounter for screening mammogram for breast cancer Procedures ANUSHA SCREENING W ASHLEY SCREENING DIGITAL BREAST TOMOSYNTHESIS BI SCREENING MAMMOGRAPHY BI 2-VIEW BREAST INC Phuc Tejeda, DO [address] [place] [address] [place] [phone] Referral ID Status Reason Start Date Expiration Date Visits Requested Visits Authorized [id number] New Request Auto-Generat ed Referral 11/20/2025 1 1 [facility] for referral (narrative)* Diagnostic Procedure Only (Routine) - Closed Specialty Diagnoses / Procedures Referred By Marcy t Referred To Contact BR IMAGING Diagnoses Encounter for screening mammogram for breast cancer Procedures ANUSHA SCREENING W ASHLEY SCREENING DIGITAL BREAST TOMOSYNTHESIS BI SCREENING MAMMOGRAPHY BI 2-VIEW BREAST INC Phuc Tejeda, DO [address] [place] [address] Br Imaging [address] [place] [phone] Referral ID Status Reason Start Date Expiration Date V isits Requested Visits Authorized [id number] Closed Auto-Generate d Referral 10/21/2024 11/20/2025 1 1 [facility] for visit Narrative* Outpatient Procedure (Routine) - Closed Specialty Diagnoses / Procedures Referred By Sonaliac t Referred To Contact [facility] Diagnoses Chronic obstructive pulmonary disease, unspecified COPD type (HCC) Oxygen dependent Procedures OXIMETRY WITH AMBULATION NONINVASIVE EAR/PULSE OXIMETRY MULTIPLE DETER Phuc Martines, DO [address] [place] [address] [facility] [place] [address] [place] [address] Referral ID Status Reason Start Date Expiration Date V isits Requested Visits Authorized [id number] Closed Auto-Generate d Referral 09/24/2022 10/24/2023 [address] [facility] for visit Narrative* Diagnostic Procedure Only (Routine) - Closed Specialty Diagnoses / Procedures Referred By Contac t Referred To Contact BR IMAGING Diagnoses Encounter for screening mammogram for breast cancer Procedures ANUSHA SCREENING SCREENING MAMMOGRAPHY BI 2-VIEW BREAST INC CAD Phuc Martines, DO [address] [place] [address] Br Imaging [address] [place] [phone] Referral ID Status Reason Start Date Expiration Date V isits Requested Visits Authorized [id number] Closed Auto-Generate d Referral 09/05/2022 10/05/2023 [address] [facility] for visit Narrative* Diagnostic Procedure Only (Routine) - Closed Specialty Diagnoses / Procedures Referred By Contac t Referred To Contact US IMAGING Diagnoses Cyst of spleen Procedures US ABD SPLEEN US ABDOMINAL REAL TIME W/IMAGE LIMITED Pratibha King, JAKI.AIRCRAFT ARMORER [address] [place] [address] [place] [address] Referral ID Status Reason Start Date Expiration Date V isits Requested Visits Authorized [id number] Closed Auto-Generate d Referral 03/06/2023 10/06/2023 [address] [facility] for visit Narrative* Diagnostic Procedure Only (Routine) - Closed Specialty Diagnoses / Procedures Referred By Contac t Referred To Contact BR IMAGING Diagnoses Encounter for screening mammogram for malignant neoplasm of breast Procedures ANUSHA SCREENING SCREENING MAMMOGRAPHY BI 2-VIEW BREAST INC CAD Phuc Martines, DO [address] [place] [address] Br Imaging [address] [place] [address] Referral ID Status Reason Start Date Expiration Date V isits Requested Visits Authorized [id number] Closed Auto-Generate d Referral 08/14/2023 09/12/2024 [address] [facility] Diagnostic Procedure Only (Routine) - Closed Specialty Diagnoses / Procedures Referred By Marcy t Referred To Contact [facility] IMAG[facility] Diagnoses Encounter for screening mammogram for breast cancer Procedures ANUSHA SCREENING W ASHLEY SCREENING DIGITAL BREAST TOMOSYNTHESIS BI SCREENING MAMMOGRAPHY BI 2-VIEW BREAST INC Phuc Tejeda, DO [address] [place] [address] Br Imaging [address] [place] [address] Referral ID Status Reason Start Date Expiration Date V isits Requested Visits Authorized [id number] Closed Auto-Generate d Referral 10/21/2024 11/20/2025 [address] 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 No February 19, 2025 4:27pm Advance Directive Response Recorded Date/ Time Do you have a Healthcare Power of Investment Underwriter? No February 19, 2025 4:27pm Do you have a Healthcare Power of Investment Underwriter? No April 23, 2025 4:50pm Advance Directive Response Recorded Date/ Time Do you have a Healthcare Power of Investment Underwriter? No February 19, 2025 4:27pm Do you have a Healthcare Power of Investment Underwriter? Yes April 23, 2025 10:47pm Name of Medical Power of Investment Underwriter Lizbet Alcazar April 23, 2025 10:47pm Advance Directive Response Recorded Date/ Time Do you have a Healthcare Power of Investment Underwriter? No February 19, 2025 4:27pm Do you have a Healthcare Power of Investment Underwriter? Yes April 23, 2025 10:47pm Name of Medical Power of Investment Underwriter Lizbet Alcazar April 23, 2025 10:47pm Do you have a Healthcare Power of Investment Underwriter? Yes May 13, 2025 1:22pm Reason for Referral Specialty Diagnoses / Procedures Referred By Contac t Referred To Contact CT IMAGING Diagnoses Chronic obstructive pulmonary disease, unspecified COPD type (HCC) Chronic respiratory failure with hypoxia (HCC) Stage 3 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) Oxygen dependent Procedures CT CHEST WO IVCON DIAGNOSTIC COMPUTED TOMOGRAPHY THORAX W/O CNTRST hPuc Martines L, DO [address] [place] [address] Ct Imaging Referral ID Status Reason Start Date Expiration Date Visits Requested Visits Authorized [id number] Authorized Auto-Generat ed Referral 08/01/2022 08/31/2023 1 1 Specialty Diagnoses / Procedures Referred By Contac t Referred To Contact CT IMAGING Diagnoses Chronic obstructive pulmonary disease, unspecified COPD type (HCC) Chronic respiratory failure with hypoxia (HCC) Stage 3 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) Oxygen dependent Procedures CT CHEST WO IVCON DIAGNOSTIC COMPUTED TOMOGRAPHY THORAX W/O CNTRST Phuc Martines, DO [address] [place] [address] Ct Imaging [facility] Referral ID Status Reason Start Date Expiration Date V isits Requested Visits Authorized [id number] Closed Auto-Generate d Referral 08/01/2022 08/31/2023 1 1 Specialty Diagnoses / Procedures Referred By Contac t Referred To Contact CT IMAGING Diagnoses Lung nodules Procedures CT LUNG FOLLOWUP WO IVCON DIAGNOSTIC COMPUTED TOMOGRAPHY THORAX W/O CNTRST Maricruz Camp, JAKI.AIRCRAFT ARMORER [address] [place] [address] Ct Imaging [facility] Referral ID Status Reason Start Date Expiration Date Visits Requested Visits Authorized [id number] New Request Auto-Generat ed Referral 12/26/2024 11/18/2025 1 1 Specialty Diagnoses / Procedures Referred By Contac t Referred To Contact CT IMAGING Diagnoses Former cigarette smoker Procedures CT LUNG SCREEN WO IVCON COMPUTED TOMOGRAPHY THORAX LW DOSE LNG CA SCR C- [place], Maricruz, MANUFACTURING ENGINEER MACHINING.AIRCRAFT ARMORER [address] [place] [address] [place] [address] Referral ID Status Reason Start Date Expiration Date V isits Requested Visits Authorized [id number] Closed Auto-Generate d Referral 10/11/2023 11/09/2024 1 [...] HYPOXIA February 23, 2025 1:2 2pm S/P [facility] 02/23 (AFIB) March 30, 2025 11:2 4am [...] Hypoxia February 23, 2025 1:2 2pm S/P [facility] [...] of breath May 07, 2025 1:02 pm Chief Complaint Admit Date HYPOXIA February 19, 2025 3:5 3pm Hypoxia February 20, 2025 8:0 7am Hypoxia February 21, 2025 11: 44am Hypoxia February 22, 2025 2:1 1pm Hypoxia February 23, 2025 1:2 2pm S/P [facility] 02/23 (AFIB) March 30, 2025 [...] see clinical note. May 07, 2025 1:02pm sob May 13, 2025 1:08 pm Reason for Visit Admit Date Atrial flutter [...] ventricular re sponse April 23, 2025 9:51pm Atrial flutter May 07, 2025 1:02 pm Shortness of breath May 07, 2025 1:02 pm Hypertension May 07, 2025 1:02 pm Chief Complaint Admit Date HYPOXIA February 19, 2025 3:5 3pm Hypoxia February 20, 2025 8:0 7am Hypoxia February 21, 2025 11: 44am Hypoxia February 22, 2025 2:1 1pm Hypoxia February 23, 2025 1:2 2pm S/P [facility] 02/23 (AFIB) March 30, 2025 [...] see clinical note. May 07, 2025 1:02pm sob May 13, 2025 6:48 pm Additional Source Comments INFORMATION SOURCE (unrecogn ized section and content) DATE CREATED AUTHOR 10/05/2018 [facility] DATE CREATED AUTHOR AUTHOR'S ORGANIZ ATION 04/28/2025 [facility] DATE CREATED AUTHOR AUTHOR'S ORGANIZ ATION 05/09/2025 [facility] Source Comments (unrecognize d section and content) In the event this informatio n is protected by the Federal Confidentiality of Alcohol and Drug Abuse Patient Records regulations: The Federal rules restrict any use of the information to criminally investigate or prosecute any alcohol or drug abuse patient.[facility] the event this information is protected by the Federal Confidentiality of Alcohol and Drug Abuse Patient Records regulations: The Federal rules restrict any use of the information to criminally investigate or prosecute any alcohol or drug abuse patient.[facility] the event this information is protected by the Federal Confidentiality of Alcohol and Drug Abuse Patient Records regulations: The Federal rules restrict any use of the information to criminally investigate or prosecute any alcohol or drug abuse patient.[facility] the event this information is protected by the Federal Confidentiality of Alcohol and Drug Abuse Patient Records regulations: The Federal rules restrict any use of the information to criminally investigate or prosecute any alcohol or drug abuse patient.[facility] the event this information is protected by the Federal Confidentiality of Alcohol and Drug Abuse Patient Records regulations: The Federal rules restrict any use of the information to criminally investigate or prosecute any alcohol or drug abuse patient.[facility] Hospital[facility] the event this information is protected by the Federal Confidentiality of Alcohol and Drug Abuse Patient Records regulations: The Federal rules restrict any use of the information to criminally investigate or prosecute any alcohol or drug abuse patient.[facility] HospitalIn the event this information is protected by the Federal Confidentiality of Alcohol and Drug Abuse Patient Records regulations: The Federal rules restrict any use of the information to criminally investigate or prosecute any alcohol or drug abuse patient.[facility] HospitalIn the event this information is protected by the Federal Confidentiality of Alcohol and Drug Abuse Patient Records regulations: The Federal rules restrict any use of the information to criminally investigate or prosecute any alcohol or drug abuse patient.[facility] HospitalIn the event this information is protected by the Federal Confidentiality of Alcohol and Drug Abuse Patient Records regulations: The Federal rules restrict any use of the information to criminally investigate or prosecute any alcohol or drug abuse patient.[facility] HospitalIn the event this information is protected by the Federal Confidentiality of Alcohol and Drug Abuse Patient Records regulations: The Federal rules restrict any use of the information to criminally investigate or prosecute any alcohol or drug abuse patient.[facility] HospitalIn the event this information is protected by the Federal Confidentiality of Alcohol and Drug Abuse Patient Records regulations: The Federal rules restrict any use of the information to criminally investigate or prosecute any alcohol or drug abuse patient.[facility] HospitalIn the event this information is protected by the Federal Confidentiality of Alcohol and Drug Abuse Patient Records regulations: The Federal rules restrict any use of the information to criminally investigate or prosecute any alcohol or drug abuse patient.[facility] HospitalIn the event this information is protected by the Federal Confidentiality of Alcohol and Drug Abuse Patient Records regulations: The Federal rules restrict any use of the information to criminally investigate or prosecute any alcohol or drug abuse patient.[facility] HospitalIn the event this information is protected by the Federal Confidentiality of Alcohol and Drug Abuse Patient Records regulations: The Federal rules restrict any use of the information to criminally investigate or prosecute any alcohol or drug abuse patient.[facility] HospitalIn the event this information is protected by the Federal Confidentiality of Alcohol and Drug Abuse Patient Records regulations: The Federal rules restrict any use of the information to criminally investigate or prosecute any alcohol or drug abuse patient.[facility] HospitalIn the event this information is protected by the Federal Confidentiality of Alcohol and Drug Abuse Patient Records regulations: The Federal rules restrict any use of the information to criminally investigate or prosecute any alcohol or drug abuse patient.[facility] HospitalIn the event this information is protected by the Federal Confidentiality of Alcohol and Drug Abuse Patient Records regulations: The Federal rules restrict any use of the information to criminally investigate or prosecute any alcohol or drug abuse patient.[facility] HospitalIn the event this information is protected by the Federal Confidentiality of Alcohol and Drug Abuse Patient Records regulations: The Federal rules restrict any use of the information to criminally investigate or prosecute any alcohol or drug abuse patient.[facility] HospitalIn the event this information is protected by the Federal Confidentiality of Alcohol and Drug Abuse Patient Records regulations: The Federal rules restrict any use of the information to criminally investigate or prosecute any alcohol or drug abuse patient.[facility] HospitalIn the event this information is protected by the Federal Confidentiality of Alcohol and Drug Abuse Patient Records regulations: The Federal rules restrict any use of the information to criminally investigate or prosecute any alcohol or drug abuse patient.[facility] HospitalIn the event this information is protected by the Federal Confidentiality of Alcohol and Drug Abuse Patient Records regulations: The Federal rules restrict any use of the information to criminally investigate or prosecute any alcohol or drug abuse patient.[facility] HospitalIn the event this information is protected by the Federal Confidentiality of Alcohol and Drug Abuse Patient Records regulations: The Federal rules restrict any use of the information to criminally investigate or prosecute any alcohol or drug abuse patient.[facility] HospitalIn the event this information is protected by the Federal Confidentiality of Alcohol and Drug Abuse Patient Records regulations: The Federal rules restrict any use of the information to criminally investigate or prosecute any alcohol or drug abuse patient.[facility] HospitalIn the event this information is protected by the Federal Confidentiality of Alcohol and Drug Abuse Patient Records regulations: The Federal rules restrict any use of the information to criminally investigate or prosecute any alcohol or drug abuse patient.[facility] the event this information is protected by the Federal Confidentiality of Alcohol and Drug Abuse Patient Records regulations: The Federal rules restrict any use of the information to criminally investigate or prosecute any alcohol or drug abuse patient.[facility] HospitalIn the event this information is protected by the Federal Confidentiality of Alcohol and Drug Abuse Patient Records regulations: The Federal rules restrict any use of the information to criminally investigate or prosecute any alcohol or drug abuse patient.[facility] HospitalIn the event this information is protected [...] or prosecute any alcohol or drug abuse patient.[facility] HospitalIn the event this information is protected by the Federal Confidentiality of Alcohol and Drug Abuse Patient Records regulations: The Federal rules restrict any use of the information to criminally investigate or prosecute any alcohol or drug abuse patient.[facility] HospitalIn the event this information is protected by the Federal Confidentiality of Alcohol and Drug Abuse Patient Records regulations: The Federal rules restrict any use of the information to criminally investigate or prosecute any alcohol or drug abuse patient.[facility] HospitalIn the event this information is protected by the Federal Confidentiality of Alcohol and Drug Abuse Patient Records regulations: The Federal rules restrict any use of the information to criminally investigate or prosecute any alcohol or drug abuse patient.[facility] HospitalIn the event this information is protected by the Federal Confidentiality of Alcohol and Drug Abuse Patient Records regulations: The Federal rules restrict any use of the information to criminally investigate or prosecute any alcohol or drug abuse patient.[facility] HospitalIn the event this information is protected by the Federal Confidentiality of Alcohol and Drug Abuse Patient Records regulations: The Federal rules restrict any use of the information to criminally investigate or prosecute any alcohol or drug abuse patient.[facility] HospitalIn the event this information is protected by the Federal Confidentiality of Alcohol and Drug Abuse Patient Records regulations: The Federal rules restrict any use of the information to criminally investigate or prosecute any alcohol or drug abuse patient.[facility] HospitalIn the event this information is protected by the Federal Confidentiality of Alcohol and Drug Abuse Patient Records regulations: The Federal rules restrict any use of the information to criminally investigate or prosecute any alcohol or drug abuse patient.[facility] HospitalIn the event this information is protected by the Federal Confidentiality of Alcohol and Drug Abuse Patient Records regulations: The Federal rules restrict any use of the information to criminally investigate or prosecute any alcohol or drug abuse patient.[facility] HospitalIn the event this information is protected by the Federal Confidentiality of Alcohol and Drug Abuse Patient Records regulations: The Federal rules restrict any use of the information to criminally investigate or prosecute any alcohol or drug abuse patient.[facility] HospitalIn the event this information is protected by the Federal Confidentiality of Alcohol and Drug Abuse Patient Records regulations: The Federal rules restrict any use of the information to criminally investigate or prosecute any alcohol or drug abuse patient.[facility] HospitalIn the event this information is protected by the Federal Confidentiality of Alcohol and Drug Abuse Patient Records regulations: The Federal rules restrict any use of the information to criminally investigate or prosecute any alcohol or drug abuse patient.[facility] HospitalIn the event this information is protected by the Federal Confidentiality of Alcohol and Drug Abuse Patient Records regulations: The Federal rules restrict any use of the information to criminally investigate or prosecute any alcohol or drug abuse patient.[facility] HospitalIn the event this information is protected by the Federal Confidentiality of Alcohol and Drug Abuse Patient Records regulations: The Federal rules restrict any use of the information to criminally investigate or prosecute any alcohol or drug abuse patient.[facility] HospitalIn the event this information is protected by the Federal Confidentiality of Alcohol and Drug Abuse Patient Records regulations: The Federal rules restrict any use of the information to criminally investigate or prosecute any alcohol or drug abuse patient.[facility] HospitalIn the event this information is protected by the Federal Confidentiality of Alcohol and Drug Abuse Patient Records regulations: The Federal rules restrict any use of the information to criminally investigate or prosecute any alcohol or drug abuse patient.[facility] HospitalIn the event this information is protected by the Federal Confidentiality of Alcohol and Drug Abuse Patient Records regulations: The Federal rules restrict any use of the information to criminally investigate or prosecute any alcohol or drug abuse patient.[facility] HospitalIn the event this information is protected by the Federal Confidentiality of Alcohol and Drug Abuse Patient Records regulations: The Federal rules restrict any use of the information to criminally investigate or prosecute any alcohol or drug abuse patient.[facility] HospitalIn the event this information is protected by the Federal Confidentiality of Alcohol and Drug Abuse Patient Records regulations: The Federal rules restrict any use of the information to criminally investigate or prosecute any alcohol or drug abuse patient.[facility] HospitalIn the event this information is protected by the Federal Confidentiality of Alcohol and Drug Abuse Patient Records regulations: The Federal rules restrict any use of the information to criminally investigate or prosecute any alcohol or drug abuse patient.[facility] HospitalIn the event this information is protected by the Federal Confidentiality of Alcohol and Drug Abuse Patient Records regulations: The Federal rules restrict any use of the information to criminally investigate or prosecute any alcohol or drug abuse patient.[facility] HospitalIn the event this information is protected by the Federal Confidentiality of Alcohol and Drug Abuse Patient Records regulations: The Federal rules restrict any use of the information to criminally investigate or prosecute any alcohol or drug abuse patient.[facility] HospitalIn the event this information is protected by the Federal Confidentiality of Alcohol and Drug Abuse Patient Records regulations: The Federal rules restrict any use of the information to criminally investigate or prosecute any alcohol or drug abuse patient.[facility] HospitalIn the event this information is protected by the Federal Confidentiality of Alcohol and Drug Abuse Patient Records regulations: The Federal rules restrict any use of the information to criminally investigate or prosecute any alcohol or drug abuse patient.[facility] HospitalIn the event this information is protected by the Federal Confidentiality of Alcohol and Drug Abuse Patient Records regulations: The Federal rules restrict any use of the information to criminally investigate or prosecute any alcohol or drug abuse patient.[facility] HospitalIn the event this information is protected by the Federal Confidentiality of Alcohol and Drug Abuse Patient Records regulations: The Federal rules restrict any use of the information to criminally investigate or prosecute any alcohol or drug abuse patient.[facility] HospitalIn the event this information is protected by the Federal Confidentiality of Alcohol and Drug Abuse Patient Records regulations: The Federal rules restrict any use of the information to criminally investigate or prosecute any alcohol or drug abuse patient.[facility] HospitalIn the event this information is protected by the Federal Confidentiality of Alcohol and Drug Abuse Patient Records regulations: The Federal rules restrict any use of the information to criminally investigate or prosecute any alcohol or drug abuse patient.[facility] HospitalIn the event this information is protected by the Federal Confidentiality of Alcohol and Drug Abuse Patient Records regulations: The Federal rules restrict any use of the information to criminally investigate or prosecute any alcohol or drug abuse patient.[facility] HospitalIn the event this information is protected by the Federal Confidentiality of Alcohol and Drug Abuse Patient Records regulations: The Federal rules restrict any use of the information to criminally investigate or prosecute any alcohol or drug abuse patient.[facility] HospitalIn the event this information is protected by the Federal Confidentiality of Alcohol and Drug Abuse Patient Records regulations: The Federal rules restrict any use of the information to criminally investigate or prosecute any alcohol or drug abuse patient.[facility] HospitalIn the event this information is protected by the Federal Confidentiality of Alcohol and Drug Abuse Patient Records regulations: The Federal rules restrict any use of the information to criminally investigate or prosecute any alcohol or drug abuse patient.[facility] HospitalIn the event this information is protected by the Federal Confidentiality of Alcohol and Drug Abuse Patient Records regulations: The Federal rules restrict any use of the information to criminally investigate or prosecute any alcohol or drug abuse patient.[facility] HospitalIn the event this information is protected by the Federal Confidentiality of Alcohol and Drug Abuse Patient Records regulations: The Federal rules restrict any use of the information to criminally investigate or prosecute any alcohol or drug abuse patient.[facility] HospitalIn the event this information is protected by the Federal Confidentiality of Alcohol and Drug Abuse Patient Records regulations: The Federal rules restrict any use of the information to criminally investigate or prosecute any alcohol or drug abuse patient.[facility] HospitalIn the event this information is protected by the Federal Confidentiality of Alcohol and Drug Abuse Patient Records regulations: The Federal rules restrict any use of the information to criminally investigate or prosecute any alcohol or drug abuse patient.[facility] HospitalIn the event this information is protected by the Federal Confidentiality of Alcohol and Drug Abuse Patient Records regulations: The Federal rules restrict any use of the information to criminally investigate or prosecute any alcohol or drug abuse patient.[facility] HospitalIn the event this information is protected by the Federal Confidentiality of Alcohol and Drug Abuse Patient Records regulations: The Federal rules restrict any use of the information to criminally investigate or prosecute any alcohol or drug abuse patient.[facility] HospitalIn the event this information is protected by the Federal Confidentiality of Alcohol and Drug Abuse Patient Records regulations: The Federal rules restrict any use of the information to criminally investigate or prosecute any alcohol or drug abuse patient.[facility] HospitalIn the event this information is protected by the Federal Confidentiality of Alcohol and Drug Abuse Patient Records regulations: The Federal rules restrict any use of the information to criminally investigate or prosecute any alcohol or drug abuse patient.[facility] HospitalIn the event this information is protected by the Federal Confidentiality of Alcohol and Drug Abuse Patient Records regulations: The Federal rules restrict any use of the information to criminally investigate or prosecute any alcohol or drug abuse patient.[facility] HospitalIn the event this information is protected by the Federal Confidentiality of Alcohol and Drug Abuse Patient Records regulations: The Federal rules restrict any use of the information to criminally investigate or prosecute any alcohol or drug abuse patient.[facility] Reason for Visit (unrecogniz ed section and content) Reason Comments Follow Up 3 months Specialty Diagnoses / Procedures Referred By Marcy t Referred To Contact FAMILY MEDICINE Diagnoses 3 mo OV Procedures 3Mo OV Martines, Phuc L, DO [address] [place] [address] [facility] [address] [place] [address] Referral ID Status Reason Start Date Expiration Date Visits Requested Visits Authorized [id number] Pending Review OON/Self Pay Override 12/01/2021 03/01/2022 1 1 Reason Comments Established Patient Specialty Diagnoses / Procedures Referred By Contac t Referred To [facility] [place] Diagnoses Breathing Issues Procedures Consult to Pulmonary Self [facility] [place] [address] [place] [address] Referral ID Status Reason Start Date Expiration Date Visits Requested Visits Authorized [id number] Outside PCP OON/Self Pay Override 02/05/2022 05/06/2022 1 1 Reason Onset Date Comments Refill Request 03/07/2022 Reason Comments Spirometry Specialty Diagnoses / Procedures Referred By Contac t Referred To [facility] Diagnoses Chronic obstructive pulmonary disease, unspecified COPD type (HCC) Procedures SPIROMETRY BASELINE ONLY SPMTRY W/VC EXPIRATORY MARTIN W/WO MXML VOL VNTJ Hodan Christine PA-C [address] [place] [address] [facility] [place] [address] [place] [address] Referral ID Status Reason Start Date Expiration Date V isits Requested Visits Authorized [id number] Closed Auto-Generate d Referral OON/Self Pay Override 02/09/2022 03/11/2023 1 1 Specialty Diagnoses / Procedures Referred By Contac t Referred To [facility] [place] Diagnoses Chronic obstructive pulmonary disease, unspecified COPD type (HCC) Procedures OXIMETRY WITH AMBULATION NONINVASIVE EAR/PULSE OXIMETRY MULTIPLE DETER Hodan Christine PA-C [address] [place] [address] [facility] [place] [address] [place] [address] Referral ID Status Reason Start Date Expiration Date V isits Requested Visits Authorized [id number] Closed Auto-Generate d Referral OON/Self Pay Override 02/09/2022 03/11/2023 1 1 Reason Comments Established Patient 6 week follow up Specialty Diagnoses / Procedures Referred By Contac t Referred To Contact PULMONARY MEDICINE Diagnoses office visit Procedures office visit Hodan Christine PA-C [address] [place] [address] [facility] [address] [place] [address] Referral ID Status Reason Start Date Expiration Date Visits Requested Visits Authorized [id number] Pending Review OON/Self Pay Override 02/09/2022 05/10/2022 1 1 Reason Comments Orders Reason Onset Date Comments F/U 3 Month Immunizations 08/01/2022 Flu vaccination Specialty Diagnoses / Procedures Referred By Contac t Referred To Contact INTERNAL MEDICINE Diagnoses 3 month follow up Procedures 4c est Phuc Martines L, DO [address] [place] [address] [facility] [address] [place] [address] Referral ID Status Reason Start Date Expiration Date Visits Requested Visits Authorized [id number] Pending Review OON/Self Pay Override 05/01/2022 08/26/2022 [...] EAR/PULSE OXIMETRY MULTIPLE DETER Hodan Christine PA-C [address] [place] [address] [facility] [place] [address] [place] [address] Referral ID Status Reason Start Date Expiration Date V isits Requested Visits Authorized [id number] Closed Auto-Generate d Referral 05/30/2023 06/28/2024 1 [...] W/O CNTRST Phuc Martines L, DO [address] [place] [address] [facility] [place] [address] Referral ID Status Reason Start Date Expiration Date V isits Requested Visits Authorized [id number] Closed Auto-Generate d Referral 08/01/2022 08/31/2023 1 1 Reason Comments Radiology US Specialty Diagnoses / Procedures Referred By Contac t Referred To Contact US IMAGING Diagnoses Cyst of spleen Procedures US ABD SPLEEN US ABDOMINAL REAL TIME W/IMAGE LIMITED Pratibha King, MANUFACTURING ENGINEER MACHINING.AIRCRAFT ARMORER [address] [place] [address] [facility] [place] [address] Referral ID Status Reason Start Date Expiration Date Visits Requested Visits Authorized [id number] Pending Review Auto-Generat ed Referral 08/30/2022 09/29/2023 1 1 Reason Comments Forms Reason Comments Radiology CT Specialty Diagnoses / Procedures Referred By Contac t Referred To Contact CT IMAGING Diagnoses Former cigarette smoker Procedures CT LUNG SCREEN WO IVCON COMPUTED TOMOGRAPHY THORAX LW DOSE LNG CA SCR Suleiman- Maricruz Camp, MANUFACTURING ENGINEER MACHINING.AIRCRAFT ARMORER [address] [place] [id number] [facility] [place] [address] Referral ID Status Reason Start Date Expiration Date V isits Requested Visits Authorized [id number] Closed Auto-Generate d Referral 09/17/2023 10/16/2024 1 [...] TOMOGRAPHY THORAX LW DOSE LNG CA SCR Suleiman- Maricruz Camp, MANUFACTURING ENGINEER MACHINING.AIRCRAFT ARMORER [address] [place] [address] Ct Imaging [facility]95 Referral ID Status Reason Start Date Expiration Date V isits Requested Visits Authorized [id number] Closed Auto-Generate d Referral 10/11/2023 11/09/2024 1 [...] WO IVCON DIAGNOSTIC COMPUTED TOMOGRAPHY THORAX W/[facility] GarciaterMaricruz, MANUFACTURING ENGINEER MACHINING.AIRCRAFT ARMORER [address] [place] [address] Phone: tel: fax: CT IMAGING [facility]95 Referral ID Status Reason Start Date Expiration Date V isits Requested Visits Authorized [id number] Closed Auto-Generate d Referral 12/26/2024 11/18/2025 1 1 Specialty Diagnoses / Procedures Referred By Contac t Referred To Contact CT IMAGING Diagnoses Lung nodules Procedures CT LUNG FOLLOWUP WO IVCON DIAGNOSTIC COMPUTED TOMOGRAPHY THORAX W/[facility] SunnyvaleMaricruz, MANUFACTURING ENGINEER MACHINING.AIRCRAFT ARMORER [address] [place] [address] Phone: tel: fax: [facility] IMAGING [facility]95 Referral ID Status Reason Start Date Expiration Date V isits Requested Visits Authorized [id number] Closed Auto-Generate d Referral 12/26/2024 11/18/2025 1 1 Reason Comments Hospital F/U [facility] COPD Reason Comments Hospital F/U [...] COULD BE A SIDE EFFECT FROM MEDICATION Reason Comments Hospital F/U Care Teams (unrecognized sec tion and content) Rim Technician Relationship Specialty Start Date End Date Phuc Martines, DO [address] [place] [address] PCP - General Family Practice 11/09/15 Rim Technician Relationship Specialty Start Date End Date Phuc Martines, DO [address] [place] [address] PCP - General Family Practice 11/09/15 Rim Technician Relationship Specialty Start Date End Date Phuc Martines, DO [address] [place] [address] PCP - General Family Practice 11/09/15 Rim Technician Relationship Specialty Start Date End Date Phuc Martines, DO [address] [place] [address] PCP - General Family Practice 11/09/15 Rim Technician Relationship Specialty Start Date End Date Phuc Martines, DO [address] [place] [address] PCP - General Family Practice 11/09/15 Rim Technician Relationship Specialty Start Date End Date Phuc Martines, DO [address] [place] [address] PCP - General Family Practice 11/09/15 Rim Technician Relationship Specialty Start Date End Date Phuc Martines, DO [address] [place] [address] PCP - General Family Practice 11/09/15 Rim Technician Relationship Specialty Start Date End Date Phuc Martines, DO [address] [place] [address] PCP - General Family Practice 11/09/15 Rim Technician Relationship Specialty Start Date End Date Phuc Martines, DO [address] [place] [address] PCP - General Family Medicine 11/09/15 Rim Technician Relationship Specialty Start Date End Date Phuc Martines, DO [address] [place] [address] PCP - General Family Medicine 11/09/15 Rim Technician Relationship Specialty Start Date End Date Phuc Martines, DO [address] [place] [address] PCP - General Family Medicine 11/09/15 Rim Technician Relationship Specialty Start Date End Date Phuc Martines, DO [address] [place] [address] PCP - General Family Medicine 11/09/15 Rim Technician Relationship Specialty Start Date End Date Phuc Martines, DO [address] [place] [address] PCP - General Family Medicine 11/09/15 Rim Technician Relationship Specialty Start Date End Date Phuc Martines, DO [address] [place] [address] PCP - General Family Medicine 11/09/15 Rim Technician Relationship Specialty Start Date End Date Phuc Martines, DO [address] [place] [address] PCP - General Family Medicine 11/09/15 Rim Technician Relationship Specialty Start Date End Date Phuc Martines, DO [address] [place] [address] PCP - General Family Medicine 11/09/15 Rim Technician Relationship Specialty Start Date End Date Phuc Martines, DO [address] [place] [address] PCP - General Family Medicine 11/09/15 Rim Technician Relationship Specialty Start Date End Date Phuc Martines DO [address] [place] [address] PCP - General Family Medicine 11/09/15 Rim Technician Relationship Specialty Start Date End Date Phuc Martines DO [address] [place] [address] PCP - General Family Medicine 11/09/15 Rim Technician Relationship Specialty Start Date End Date Phuc Martines DO [address] [place] [address] PCP - General Family Medicine 11/09/15 Rim Technician Relationship Specialty Start Date End Date Phuc Martines DO [address] [place] [address] PCP - General Family Medicine 11/09/15 Rim Technician Relationship Specialty Start Date End Date Phuc Martines DO [address] [place] [address] PCP - General Family Medicine 11/09/15 Rim Technician Relationship Specialty Start Date End Date Phuc Martines DO [address] [place] [address] PCP - General Family Medicine 11/09/15 Rim Technician Relationship Specialty Start Date End Date Phuc Martines DO [address] [place] [address] PCP - General Family Medicine 11/09/15 Rim Technician Relationship Specialty Start Date End Date Phuc Martines DO [address] [place] [address] PCP - General Family Medicine 11/09/15 Rim Technician Relationship Specialty Start Date End Date Phuc Martines DO [address] [facility] [place] [address] PCP - General Family Medicine 11/09/15 Rim Technician Relationship Specialty Start Date End Date Phuc Martines DO [address] [facility] [place] [address] PCP - General Family Medicine 11/09/15 Rim Technician Relationship Specialty Start Date End Date Phuc Martines DO [address] [place] [address] PCP - General Family Medicine 11/09/15 Rim Technician Relationship Specialty Start Date End Date Phuc Martines DO [address] [facility] [place] [address] PCP - General Family Medicine 11/09/15 Rim Technician Relationship Specialty Start Date End Date Phuc Martines DO [address] [facility] [place] [address] PCP - General Family Medicine 11/09/15 Rim Technician Relationship Specialty Start Date End Date Phuc Martines DO [address] [facility] [place] [address] PCP - General Family Medicine 11/09/15 Hodan Christine PA-C [address] [place] [address] Pulmonary and Critical Care Medicine 10/11/23 Rim Technician Relationship Specialty Start Date End Date Phuc Martines DO [address] [facility] [place] [address] PCP - General Family Medicine 11/09/15 Hodan Christine PA-C [address] [place] [facility] [place] [address] Pulmonary and Critical Care Medicine 10/11/23 Rim Technician Relationship Specialty Start Date End Date Phuc Martines DO [address] [facility] [place] [address] PCP - General Family Medicine 11/09/15 Hodan Christine PA-C [address] [place] [facility] [place] [address] Pulmonary and Critical Care Medicine 10/11/23 Rim Technician Relationship Specialty Start Date End Date Phuc Martines DO [address] [facility] [place] [address] PCP - General Family Medicine 11/09/15 Hodan Christine PA-C [address] [place] [facility] [place] [address] Pulmonary and Critical Care Medicine 10/11/23 Rim Technician Relationship Specialty Start Date End Date Phuc Martines DO [address] [facility] [place] [address] PCP - General Family Medicine 11/09/15 Hodan Christine PA-C [address] [place] [facility] [place] [address] Pulmonary and Critical Care Medicine 10/11/23 Rim Technician Relationship Specialty Start Date End Date Phuc Martines DO [address] [facility] [place] [address] PCP - General Family Medicine 11/09/15 Hodan Christine PA-C [address] [place] [address] Pulmonary and Critical Care Medicine 10/11/23 Rim Technician Relationship Specialty Start Date End Date Phuc Martines DO [address] [facility] [place] [address] PCP - General Family Medicine 11/09/15 Hodan Christine PA-C [address] [place] [facility] [place] [address] Pulmonary and Critical Care Medicine 10/11/23 Rim Technician Relationship Specialty Start Date End Date Phuc Martines DO [address] [facility] [place] [address] PCP - General Family Medicine 11/09/15 Rim Technician Relationship Specialty Start Date End Date Phuc Martines DO [address] [facility] [place] [address] PCP - General Family Medicine 11/09/15 Rim Technician Relationship Specialty Start Date End Date Phuc Martines DO [address] [facility] [place] [address] PCP - General Family Medicine 11/09/15 Hodan Christine PA-C [address] [place] [facility] [place] [address] Pulmonary and Critical Care Medicine 10/11/23 Rim Technician Relationship Specialty Start Date End Date Phuc Martines DO [address] [place] [address] PCP - General Family Medicine 11/09/15 Hodan Christine PA-C [address] [place] [address] Pulmonary and Critical Care Medicine 10/11/23 Vicky Duong, MANUFACTURING ENGINEER MACHINING.AIRCRAFT ARMORER [address] [place] [address] [facility] 10/04/24 Pratibha King APRN.AIRCRAFT ARMORER [address] [place] [address] Formerly [facility] 10/04/24 Rim Technician Relationship Specialty Start Date End Date Phuc Martines DO [address] [place] [address] PCP - General Family Medicine 11/09/15 Hodan Christine, CHIDI [address] [place] [address] Pulmonary and Critical Care Medicine 10/11/23 Vicky Duong, MANUFACTURING ENGINEER MACHINING.AIRCRAFT ARMORER [address] [place] [address] Formerly [facility] 10/04/24 Pratibha King APRN.AIRCRAFT ARMORER [address] [place] [address] Formerly [facility] 10/04/24 Rim Technician Relationship Specialty Start Date End Date Phuc Martines DO [address] [facility] [place] [address] PCP - General Family Medicine 11/09/15 Hodan Christine PA-C [address] [place] [address] Pulmonary and Critical Care Medicine 10/11/23 Vicky Duong, MANUFACTURING ENGINEER MACHINING.AIRCRAFT ARMORER [address] [place] [address] Area Captain [facility] 10/04/24 Pratibha King, JAKI.AIRCRAFT ARMORER [address] [place] [address] Formerly [facility] 10/04/24 Rim Technician Relationship Specialty Start Date End Date Phuc Martines DO [address] [place] [address] PCP - General Family Medicine 11/09/15 Hodan Christine PA-C [address] [place] [address] Pulmonary and Critical Care Medicine 10/11/23 Vicky Duong, MANUFACTURING ENGINEER MACHINING.AIRCRAFT ARMORER [address] [place] [address] Formerly [facility] 10/04/24 Pratibha King, MANUFACTURING ENGINEER MACHINING.AIRCRAFT ARMORER [address] [place] [address] Formerly [facility] 10/04/24 Rim Technician Relationship Specialty Start Date End Date Phuc Martines DO [address] [place] [address] PCP - General Family Medicine 11/09/15 Hodan Christine PA-C [address] [place] [address] Pulmonary and Critical Care Medicine 10/11/23 Vicky Duong, MANUFACTURING ENGINEER MACHINING.AIRCRAFT ARMORER [address] [place] [address] Formerly [facility] 10/04/24 Pratibha King APRN.AIRCRAFT ARMORER [address] [place] [address] Formerly [facility] 10/04/24 Rim Technician Relationship Specialty Start Date End Date Phuc Martines DO [address] [place] [address] PCP - General Family Medicine 11/09/15 Hodan Christine PA-C [address] [place] [address] Pulmonary and Critical Care Medicine 10/11/23 Vicky Duong, MANUFACTURING ENGINEER MACHINING.AIRCRAFT ARMORER [address] [place] [address] Formerly [facility] 10/04/24 Pratibha King, MANUFACTURING ENGINEER MACHINING.AIRCRAFT ARMORER [address] [place] [address] Formerly [facility] 10/04/24 Rim Technician Relationship Specialty Start Date End Date Phuc Martines DO [address] [place] [address] PCP - General Family Medicine 11/09/15 Hodan Christine PA-Suleiman [address] [place] [address] Pulmonary and Critical Care Medicine 10/11/23 Vicky Duong, MANUFACTURING ENGINEER MACHINING.AIRCRAFT ARMORER [address] [facility] [place] [address] Formerly [facility] 10/04/24 FernandoPratibha, MANUFACTURING ENGINEER MACHINING.AIRCRAFT ARMORER [address] [facility] [place] [address] Formerly [facility] 10/04/24 Rim Technician Relationship Specialty Start Date End Date Phuc Martines DO [address] [place] [address] PCP - General Family Medicine 11/09/15 Hodan Christine PA-C [address] [place] [address] Pulmonary and Critical Care Medicine 10/11/23 Vicky Duong, MANUFACTURING ENGINEER MACHINING.AIRCRAFT ARMORER [address] [facility] [place] [address] Formerly [facility] 10/04/24 [facility]3]Pratibha, MANUFACTURING ENGINEER MACHINING.AIRCRAFT ARMORER [address] [facility] [place] [address] Formerly [facility] 10/04/24 Rim Technician Relationship Specialty Start Date End Date Phuc Martines DO [address] [place] [address] PCP - General Family Medicine 11/09/15 Hodan Christine PA-C [address] [place] [address] Pulmonary and Critical Care Medicine 10/11/23 Vicky Duong APRN.AIRCRAFT ARMORER [address] [facility] [place] [address] Formerly [facility] 10/04/24 FernandoPratibha APRN.AIRCRAFT ARMORER [address] [facility] [place] [address] Formerly [facility] 10/04/24 Rim Technician Relationship Specialty Start Date End Date Phuc Martines DO [address] [facility] [place] [address] PCP - General Family Medicine 11/09/15 Hodan Christine PA-C [address] [place] [address] Pulmonary and Critical Care Medicine 10/11/23 FernandoPratibha APRN.AIRCRAFT ARMORER [address] [facility] [place] [address] Formerly [facility] 10/04/24 Rim Technician Relationship Specialty Start Date End Date Phuc Martines DO [address] [place] [address] PCP - General Family [facility] 11/09/15 Hodan Christine PA-C [address] [place] [address] Pulmonary and Critical Care Medicine 10/11/23 Pratibha King, MANUFACTURING ENGINEER MACHINING.AIRCRAFT ARMORER [address] [facility] [place] [address] Formerly [facility] 10/04/24 Rim Technician Relationship Specialty Start Date End Date Phuc Martines DO [address] [facility] [place] [address] PCP - General [facility] 11/09/15 Hodan Christine, PA-C [address] [place] [facility] [place] [address] Pulmonary and Critical Care Medicine 10/11/23 Pratibha King, MANUFACTURING ENGINEER MACHINING.AIRCRAFT ARMORER [address] [facility] [place] [address] Formerly [facility] 10/04/24 Rim Technician Relationship Specialty Start Date End Date Phuc Martines DO [address] [facility] [place] [address] PCP - [facility] Medicine 11/09/15 Hodan Christine, PA-C [address] [place] [address] Pulmonary and Critical Care Medicine 10/11/23 FernandoPratibha, MANUFACTURING ENGINEER MACHINING.AIRCRAFT ARMORER [address] [facility] [place] [address] Formerly [facility] 10/04/24 Team Status: Active Member Role Status [...] February 23, 2025 Dr. Claudia Valerio , DO Other Provider Active Start : February 19, 2025 End: February 23, 2025 Team Status: Active Member Role Status Dates Dr. Phuc Martines DO Primary Care Provider Active Start: February 20, 2025 Dr. Linwood Ivy , DO Emergency Provider Active Start: February 20, 2025 Dr. Kym Norton MD Admit Provider Active Star t: February 20, 2025 Dr. Kym Norton MD Other Provider Active Star t: February 20, 2025 Dr. Claudia Valerio , DO Attending Provider Active S tart: February 20, 2025 Dr. lCaudia Valerio , DO Other Provider Active Start : February 20, 2025 Team Status: Active Member Role Status Dates Dr. Phuc Martines DO Primary Care Provider Active Start: February 20, 2025 Dr. Mercy Purvis MD Attending Provider Active Start: February 20, 2025 Team Status: Active Member Role Status Dates Dr. Phuc Martines DO Primary Care Provider Active Start: February 21, 2025 Dr. Linwood Ivy , DO Emergency Provider Active Start: February 21, 2025 Dr. Kym Norton MD Admit Provider Active Star t: February 21, 2025 Dr. Kym Norton MD Other Provider Active Star t: February 21, 2025 Dr. Claudia Valerio DO Attending Provider Active S tart: February 21, 2025 Dr. Claudia Valerio , DO Other Provider Active Start : February 21, 2025 Team Status: Active Member Role Status Dates Dr. Phuc Martines DO Primary Care Provider Active Start: February 22, 2025 Dr. Linwood Ivy , DO Emergency Provider Active Start: February 22, [...] Provider Active Start : February 23, 2025 Rim Technician Relationship Specialty Start Date End Date Phuc Martines DO [address] [place] [address] PCP - General Family Medicine 11/09/15 Hodan Christine, PA-C [address] [place] [address] Pulmonary and Critical Care Medicine 10/11/23 Pratibha King APRN.AIRCRAFT ARMORER [address] [place] [address] Area Captain Family Medicine 10/04/24 Rim Technician Relationship Specialty Start Date End Date Phuc Martines DO [address] [facility] [place] [address] PCP - General Family Medicine 11/09/15 Hodan Christine, PA-C [address] [place] [address] Pulmonary and Critical Care Medicine 10/11/23 [facility]3]Pratibha, MANUFACTURING ENGINEER MACHINING.AIRCRAFT ARMORER [address] [facility] [place] [address] Formerly [facility] 10/04/24 Rim Technician Relationship Specialty Start Date End Date Phuc Martines DO [address] [place] [address] PCP - General Family Medicine 11/09/15 Hodan Christine PA-C [address] [place] [address] Pulmonary and Critical Care Medicine 10/11/23 FernandoPratibha, MANUFACTURING ENGINEER MACHINING.AIRCRAFT ARMORER [address] [place] [address] Formerly [facility] 10/04/24 Rim Technician Relationship Specialty Start Date End Date Phuc Martines DO [address] [place] [address] PCP - General Family Medicine 11/09/15 Hodan Christine, LEAH-C [address] [place] [address] Pulmonary and Critical Care Medicine 10/11/23 [facility]3]Pratibha, MANUFACTURING ENGINEER MACHINING.AIRCRAFT ARMORER [address] [place] [address] Formerly [facility] 10/04/24 Rim Technician Relationship Specialty Start Date End Date Phuc Martines DO [address] [place] [address] PCP - General Family Medicine 11/09/15 Hodan Christine PA-C [address] [facility], [place] [address] Pulmonary and Critical Care Medicine 10/11/23 FernandoPratibha, MANUFACTURING ENGINEER MACHINING.AIRCRAFT ARMORER [address] [facility] [place] [address] Formerly [facility] 10/04/24 Team Status: Inactive Member Role Status Dates Dr. Phuc Martines DO Primary Care Provider Active Start: March 30, 2025 End: March 30, 2025 Dr. Phuc Martines DO Referring Provider Active Start: March 30, 2025 End: March 30, 2025 Dr. Bryan Elena MD Attending Provider Active Start: March 30, 2025 End: March 30, 2025 Rim Technician Relationship Specialty Start Date End Date Phuc Martines DO [address] [facility] [place] [address] PCP - General Family Medicine 11/09/15 Hodan Christine PA-C [address] [place] [address] Pulmonary and Critical Care Medicine 10/11/23 FernandoPratibha, MANUFACTURING ENGINEER MACHINING.AIRCRAFT ARMORER [address] [facility] [place] [address] Formerly [facility] 10/04/24 Tyra Carson, MANUFACTURING ENGINEER MACHINING.AIRCRAFT ARMORER [address] [facility], [place] [address] [phone] Formerly [facility] 04/12/25 Rim Technician Relationship Specialty Start Date End Date Phuc Martines DO [address] [facility] [place] [address] PCP - General Family Medicine 11/09/15 Hodan Christine PA-C [address] [place], [place] [address] Pulmonary and Critical Care Medicine 10/11/23 Pratibha King, MANUFACTURING ENGINEER MACHINING.AIRCRAFT ARMORER [address] [place], [place] [address] [phone] Formerly [facility] 10/04/24 Tyra Carson, MANUFACTURING ENGINEER MACHINING.AIRCRAFT ARMORER [address] [place], [place] [address] [phone] Formerly [facility] 04/12/25 Rim Technician Relationship Specialty Start Date End Date Phuc Martines DO [address] [place] [address] PCP - General Family Medicine 11/09/15 Hodan Christine PA-C [address] [place], [place] [address] [phone] Pulmonary and Critical Care Medicine 10/11/23 Pratibha King, MANUFACTURING ENGINEER MACHINING.AIRCRAFT ARMORER [facility] [place] [address] Formerly [facility] 10/04/24 Tyra Carson, MANUFACTURING ENGINEER MACHINING.AIRCRAFT ARMORER [address] [place] [address] Formerly [facility] 04/12/25 Team Status: Active Member Role/Relationship Status [...] 2025 End: February 23, 2025 Dr. Claudia Vaelrio , Other Provider Active Start : February [...] S tart: February 20, 2025 Dr. Claudia Valreio DO Other Provider Active Start : February 20, 2025 Team Status: Active Member Role/Relationship Status Dates Dr. Phuc Martines DO Primary Care Provider Active Start: February 20, 2025 Dr. Mercy Purvis MD Attending Provider Active Start: February 20, 2025 Team Status: Active Member Role/Relationship Status Dates Dr. Phuc Maritnes DO Primary Care Provider Active Start: February [...] Active Star t: February 22, 2025 Dr. eYe Jones MD Attending Provider Active Start: February [...] Active Start: May 07, 2025 Kim Price BLOWING ENGINEER, BLOWING ENGINEER-C Attending Provider Active Start: May 07, 2025 Kim Price NP, BLOWING ENGINEER-C Referring Provider Active Start: May 07, 2025 Team Status: Inactive Member Role/Relationship Status Dates Dr. Phuc Martines DO Primary Care Provider Active Start: May 07, 2025 End: May 07, 2025 Dr. Phuc Martines DO Referring Provider Active Start: May 07, 2025 End: May 07, 2025 Kim Price BLOWING ENGINEER, BLOWING ENGINEER-C Attending Provider Active Start: May 07, 2025 End: May 07, 2025 Rim Technician Relationship Specialty Start Date End Date Phuc Martines DO [address] [place], [place] [address] PCP - General Family Medicine 11/09/15 Hodan Christine PA-C [address] [place], [place] [address] Pulmonary and Critical Care Medicine 10/11/23 Pratibha King, MANUFACTURING ENGINEER MACHINING.AIRCRAFT ARMORER [address] [place], [place] [address] [facility] 10/04/24 Tyra Carson, MANUFACTURING ENGINEER MACHINING.AIRCRAFT ARMORER [address] [place], [place] [address] Formerly [facility] 04/12/25 Rim Technician Relationship Specialty Start Date End Date Phuc Martines DO [address] [place], [place] [address] PCP - General Family Medicine 11/09/15 Hodan Christine PA-C [address] [place], [place] [address] Pulmonary and Critical Care Medicine 10/11/23 Pratibha King APRN.AIRCRAFT ARMORER [address] [place], [place] [address] [facility] 10/04/24 Tyra Carson APRN.AIRCRAFT ARMORER [address] [place], [place] [address] Formerly [facility] 04/12/25 Team Status: Inactive Member Role/Relationship Status Dates Dr. Phuc Martines DO Primary Care Provider Active Start: May 07, 2025 End: May 07, 2025 Kim Price BLOWING ENGINEER, BLOWING ENGINEER-C Attending Provider Active Start: May 07, 2025 End: May 07, 2025 Kim Price BLOWING ENGINEER, BLOWING ENGINEER-C Referring Provider Active Start: May 07, 2025 End: May 07, 2025 Team Status: Active Member Role/Relationship Status Dates Dr. Phuc Martines DO Primary Care Provider Active Start: May 13, 2025 Dr. Linwood Ivy DO Emergency Provider Active Start: May 13, 2025 Team Status: Active Member Role/Relationship Status Dates Dr. Puhc Martines DO Primary Care Provider Active Start: May 13, 2025 Dr. Linwood Ivy DO Emergency Provider Active Start: May 13, 2025 Dr. Nicko Vallejo DO Admit Provider Active Start: May 13, 2025 Dr. Nicko Vallejo DO Attending Provider Active Start: May 13, 2025 FOR RECORDS PERTAINING TO PATIENTS WHO [...] BE BASED ON THE PRIMARY CLINICAL RECORDS. [facility] [employer] [facility]. provides no warranty or guarantee of the accuracy or completeness of information in this document.
[2025-05-13] MEDS: APIXABAN 5 MG TABLET PO (21:43)
[2025-05-13] MEDS: 0.9% Saline Lock 10 ML Syringe IV (21:44)
[2025-05-13] MEDS: Budesonide Respules 0.5 MG/2 ML AMPUL.NEB. INHALATION (22:31)
[2025-05-14] VITALS (14 sets, daily range): BP systolic 109–146; BP diastolic 57–118; PULSE 67–98; RESP 12–26; TEMP 36.3–37.1; O2SAT 91–97
[2025-05-14 06:12] LABS: Hematocrit 33.6 % (37-47); Hemoglobin 9.9 g/dL (12.0-15.0); Mean Corp Hgb Conc 29.5 g/dL (32-36); Mean Corpuscular Volume 102.8 fL (81-99); Mean Platelet Vol. 10.7 fl (6.2-12.0); Platelet Count 269 K/mm3 (150-450); RBC Distribution Width CV 15.3 % (11.6-14.6); RBC Distribution Width SD 57.1 fl (35.1-43.9); Red Blood Count 3.27 M/mm3 (4.2-5.4); White Blood Count 8.5 K/mm3 (4.4-11.0)
[2025-05-14] MEDS: Budesonide Respules 0.5 MG/2 ML AMPUL.NEB. INHALATION (06:50)
[2025-05-14 06:55] LABS: Anion Gap 7 (5-15); BUN 21 mg/dL (4-19); BUN/Creat Ratio 30.8 RATIO (10-20); Calcium,Total 9.2 mg/dL (7.6-11.0); Carbon Dioxide 47.9 mmol/L (21.0-32.0); Chloride 92 mmol/L (98-108); Estimated Creatinine Clearance 86.60 ml/min (50-250); Glucose 145 mg/dL (70-99); Potassium 3.8 mmol/L (3.3-5.1)
--- NOTE | 2025-05-14 08:18 | PN.HOSP_ITS ---
Reason for Visit Chief Complaint: Worsening shortness of breath and leg swelling Objective Data Objective Data Vital Signs: Vital Signs Temp Pulse Resp BP Pulse Ox O2 Del Method O2 Flow Rate 97.4 F L 91 19 H 109/57 L 94 High Flow 10 05/14/25 05:20 05/14/25 07:34 05/14/25 07:34 05/14/25 05:20 05/14/25 07:33 05/14/25 07:33 05/14/25 07:33 FiO2 50 05/14/25 03:30 Oxygen Flow Rate (L/min) 10 Oxygen Delivery Method High Flow Weight: 262 lb 3 oz Body Mass Index (BMI) 45.0 Intake & Output: Intake and Output for Last 24 Hours 05/12/25 05/13/25 05/14/25 23:59 23:59 23:59 Intake Total 500 / 500 Output Total 1250 / 1250 Balance -750 / -750 Lab / Micro Data 05/14/25 05:35 05/14/25 05:35 Labs: Laboratory Results - last 24 hr 05/13/25 13:40: WBC 10.1, RBC 3.37 L, Hgb 10.1 L, Hct 34.1 L, MCV 101.2 H, MCH 30.0, MCHC 29.6 L, RDW Std Deviation 56.6 H, RDW Coeff of Karly 15.3 H, Plt Count 115 L, MPV 11.1, Immature Gran % (Auto) 0.700, Neut % (Auto) 85.1 H, Lymph % (Auto) 6.1 L, [place] % (Auto) 7.4, Eos % (Auto) 0.1, Baso % (Auto) 0.6, Absolute Neuts (auto) 8.6 H, Absolute Lymphs (auto) 0.61 L, Nucleated RBC % 0, Sodium 143, Potassium 4.7, Chloride 93 L, Carbon Dioxide 36.5 H, Anion Gap 14, BUN 25 H , Creatinine 0.58 L, Estim Creat Clear Calc 86.37, Est GFR (MDRD) Non-Af 99, B UN/Creatinine Ratio 43.3 H, Glucose 97, Calcium 8.8, Total Bilirubin 0.51, AST 27, ALT 18, Alkaline Phosphatase 121 H, Troponin T High Sens < 6, NT pro BNP II 2554 H, Total Protein 7.0, Albumin 3.1 L, Globulin 3.9, Albumin/Globulin Ratio 0.8 L 05/13/25 16:05: Troponin T Hi Sens 2 Hr < 6 05/14/25 05:35: WBC 8.5, RBC 3.27 L, Hgb 9.9 L, Hct 33.6 L, MCV 102.8 H, MCH 30.3, MCHC 29.5 L, RDW Std Deviation 57.1 H, RDW Coeff of Karly 15.3 H, Plt Count 269, MPV 10.7, Sodium 147 H, Potassium 3.8, Chloride 92 L, Carbon Dioxide 47.9 H*, Anion Gap 7, BUN 21 H, Creatinine 0.68 L, Estim Creat Clear Calc 86.60, Est GFR (MDRD) Non-Af 95, BUN/Creatinine Ratio 30.8 H, Glucose 145 H, Calcium 9.2 ABG Data ABG results: ABG 05/13/25 13:33 Specimen Type ART Sample Site R Radial pH 7.36 Bicarbonate Actual 52.6 H Total CO2 > 50 Base Excess 27 H O2 Saturation 95 O2 % 15.0 ABG pCO2 92.9 H* ABG pO2 85 Gurjit Test Positive O2 Delivery Device Cannula Vent Mode Not entered Crit Call To/Read Back Yes Blood Gas Notified Whom glauthia Blood Gas Notified Time 13:37:54 Radiography Diagnostic Testing: Radiology Impression Chest CTA 05/13/25 13:49 IMPRESSION: 1. Markedly limited exam, without evidence of central pulmonary embolism. Consider repeating this exam if there is persistent concern for a more distal embolism. 2. Similar appearance of the lungs compared to CT on 02/20/2025, to include solid pulmonary nodules measuring up to 1.2 cm in size. Recommend repeat CT in 6-12 months, and Pulmonology referral if not already performed. 3. Multiple hypodense lesions in the spleen measuring up to 2.[address] abdomen and pelvis for further evaluation, particularly if the patient has a history of malignancy or associated symptoms. Reading Location: [id number] Physical Exam Narrative Seen and examined. Patient admitted with extreme shortness of breath and felt mild sharp chest pain/stabbing in sensation. Chest pain was more left-sided, couple times lasted for short time about 2 to 3 minutes. She has chronic cough with mild increase in severity. No fever. No dysuria. Did not move bowels for couple days. Physical exam General: Alert, Oriented x3, Cooperative HEENT: Atraumatic, PERRLA, EOMI, Normocephalic. Oral: No Gingival or Mucosal Lesions/ Ulcerations Neck: Supple, No JVD, Negative Carotid Bruits Chest wall/Lungs: Air entry severely diminished. Mild expiratory rhonchi. Cardiovascular: Regular rate and rhythm, Normal S1,S2, No M/G/R Abdomen: Bowel Sounds Present, Soft, Non Tender, Non-Distended : No dysuria. No renal angle tenderness. No suprapubic tenderness. Extremities: Bilateral 2+ pitting edema, Capillary Refill Less than 3 Seconds Skin: No rashes, No breakdown Musculoskeletal: No Tenderness to Palpation of Joints or Extremities Neurological: Cranial nerves II-XII grossly intact, DTR 2+/4. No acute focal neurological deficit. Psych/Mental Status: Flat affect. Assessment & Plan Assessment/Plan (1) Acute and chronic respiratory failure with hypercapnia: (2) Acute on chronic heart failure with preserved ejection fraction (HFpEF): PLAN: Plan Patient is a 69-year-old female who presented to [facility] ED on 05/13/2025 with worsening shortness of breath and lower extremity swelling. 1. Acute on chronic hypercapnic respiratory failure most likely due to COPD and heart failure exacerbation ? Admit under inpatient status to PCU. Suspect multifactorial due to acute on chronic HFpEF and untreated ROXY as below. ABG on admit with pH 7.36 but pCO2 92. Patient on 3.5 L at rest and 6 L on exertion at baseline. CTA chest showed no PE and no pleural effusions with mild vascular congestion, severe centrilobular emphysematous changes. Patient improved on the BiPAP, did not require intubation. 05/14: Still on high flow oxygen, 10 L, respiratory rate 20/min. Continue BiPAP during naps and at night and as needed for respiratory fatigue. Patient is being managed on scheduled bronchodilator, IV Solu-Medrol, Mucinex, incentive spirometry and Pep. Atypical chest pain described as pulmonary related, 2 serial troponins are negative. ACS ruled out. Respiratory panel negative. 2. Acute on chronic HFpEF with moderate pulmonary hypertension, mild valvular heart disease ? Mild vascular congestion on chest imaging and +1-2 lower extremity pitting edema on exam noted. BNP 2554, though notably BNP was 2566 on 05/07. However, patient was on Lasix 60 mg twice daily without much improvement. IV Lasix 40 mg twice daily for now, monitor daily BMP and urine output. Continue home dapagliflozin. Recent echo 02/19/2025 Interpretation Summary Borderline LV systolic function. Estimated LVEF 45-50%. Moderate global right ventricular systolic dysfunction. There is mild biatrial dilatation. Moderate (2+) eccentric mitral valve insufficiency. Mild tricuspid valve insufficiency. Right ventricular systolic pressure estimated to be 53 mmHg. The study was technically difficult. 3. Class III obesity with ROXY not on home PAP therapy ? BMI 45 on admit. Complicates hospital course and care. Patient reports having sleep study done in the past but did not think she could tolerate PAP therapy and has never had a PAP machine at home. Continue PAP therapy at night and with naps while inpatient as noted above. health information manager to help, set up sleep study shortly after discharge. 4. Paroxysmal A-fib/flutter on Eliquis, hypertension, hyperlipidemia, history of VTE ? Follows with outpatient cardiology. In rate controlled atrial flutter with rate in the 100s on admit. EKG showed atrial flutter with rate 106 bpm. Normotensive to hypertensive in the ED. Continue home Eliquis, amiodarone, diltiazem, Lopressor and atorvastatin. 5. Alcohol abuse ? Patient reports drinking 2 alcoholic drinks daily and on chart review, she reported 2 drinks a day during recent admission at the end of March. However, daughter noted that there are days where patient will drink 4-5 alcoholic drinks. on CIWA protocol without medications for now. Monitor. 6. History of tobacco abuse ? Encouraged continued cessation. 7. Solitary pulmonary nodules: Unchanged solid nodule in the right upper lobe measuring 1.2 x 0.4 cm, RUL measuring 3 mm. Also shows extensive centrilobular and paraseptal emphysema. Biapical scarring. Linear consolidation at posterior lung bases, right greater than left DVT prophylaxis: Not indicated, on Eliquis 5 mg twice daily. CODE STATUS: Full code, verified Laboratory Results 05/13/25 13:40: Sodium 143, Potassium 4.7, Chloride 93 L, Carbon Dioxide 36.5 H, Anion Gap 14, BUN 25 H, Creatinine 0.58 L, Estim Creat Clear Calc 86.37, Est GFR (MDRD) Non-Af 99, BUN/Creatinine Ratio 43.3 H, Glucose 97, Calcium 8.8, Total Bilirubin 0.51, AST 27, ALT 18, Alkaline Phosphatase 121 H, NT pro BNP II 2554 H , Total Protein 7.0, Albumin 3.1 L, Globulin 3.9, Albumin/Globulin Ratio 0.8 L 05/13/25 16:05: Troponin T Hi Sens 2 Hr < 6 05/14/25 05:35: WBC 8.5, RBC 3.27 L, Hgb 9.9 L, Hct 33.6 L, MCV 102.8 H, MCH 30.3, MCHC 29.5 L, RDW Std Deviation 57.1 H, RDW Coeff of Karly 15.3 H, Plt Count 269, MPV 10.7, Sodium 147 H, Potassium 3.8, Chloride 92 L, Carbon Dioxide 47.9 H*, Anion Gap 7, BUN 21 H, Creatinine 0.68 L, Estim Creat Clear Calc 86.60, Est GFR (MDRD) Non-Af 95, BUN/Creatinine Ratio 30.8 H, Glucose 145 H, Calcium 9.2 Clinical Impression(s) from Imaging Studies Chest CTA 05/13/25 13:49 IMPRESSION: 1. Markedly limited exam, without evidence of central pulmonary embolism. Consider repeating this exam if there is persistent concern for a more distal embolism. 2. Similar appearance of the lungs compared to CT on 02/20/2025, to include solid pulmonary nodules measuring up to 1.2 cm in size. Recommend repeat CT in 6-12 months, and Pulmonology referral if not already performed. 3. Multiple hypodense lesions in the spleen measuring up to 2.[address] abdomen and pelvis for further evaluation, particularly if the patient has a history of malignancy or associated symptoms. Reading Location: [facility] Charges/Coding Addendum Addendum: Total time of the visit including total time spent in counseling or coordination of care, (more than 50% of the total time, spent in obtaining medical information from nurses and other ancillary care providers ,explaining to the patient about labs, imaging, diagnosis and management of active complex medical conditions), review of cardiac tests, review of labs and imaging is 35 minutes. Visit Charges Inpatient E&M: 65177 Subs Hosp L3
[2025-05-14] MEDS: Ensure Clear 120 ML Liquid PO ×3 (09:14→17:16)
[2025-05-14] MEDS: APIXABAN 5 MG TABLET PO ×2 (09:16→21:43)
[2025-05-14] MEDS: Potassium Chloride Oral Tablet 20 MEQ PO ×2 (09:16→17:17)
[2025-05-14] MEDS: 0.9% Saline Lock 10 ML Syringe IV ×4 (09:17→21:44)
--- NOTE | 2025-05-14 10:00 | CASEMGMT ---
Addendum entered by Lisha Solorio 05/14/25 16:13: HERRERA ESPINOSA also discuss follow-up with PCP or motorcycle deliverer regarding outpatient sleep study and pap therapy at home. Patient and daughter voiced understanding. Original Note: HERRERA ESPINOSA chart review: Patient was admitted 04/23-04/27/25 for COPD exacerbation and Afib with RVR with CHF. See assessment from 04/24/25. Patient was discharged to home on her baseline oxygen, Private duty list, family support, and follow-up plans in place. Patient returned to [facility] ED on 05/13/25 for increased SOB requiring increase in oxygen demands. Patient was admitted acute hypercapnic resp failure and mild CHF exacerbation. Patient is requiring 10lpm high flow oxygen. HERRERA ESPINOSA in to discuss readmission and discharge plans, daughtet at bedside. Patient states she was wearing oxygen as ordered at home. Patient was taking her medications as prescribed. Patient states she attended her follow-up appts. Patient states she was doing well at home until her leg started to swell. HERRERA ESPINOSA encouraged patient to follow low sodium diet and to weigh self daily to monitor for increase fluids and to updated PCP for recommendation to avoid CHF exacerbation. Patient voiced understanding. Daughter has moved in with patient to assist with care. Patient states she had lost private duty list and requesting another copy. HERRERA ESPINOSA provided Private Duty list. Patient declines HHC or therapy at discharge. Will monitor for increase in home oxygen, green sheet placed on chart. Patient had no further questions or concerns.
--- NOTE | 2025-05-14 14:52 | CHAPLAIN ---
Type of Pastoral Visit _x__ Initial Visit ___ Follow-up Visit ___ On-call Visit ___ General Patient Visit ___ Spiritual Assessment ___ Family Conference ___ Bereavement ___ Rapid Response ___ Code Blue ___ Other (describe below) Pastoral Care Referral From _x__ Patient ___ Family ___ Nurse ___ Physician ___ Business Proposal Rep ___ Manager Of Financial ___ Other (describe below) Sacrament/Intervention _x__ Active listening ___ Anointing ___ Jain ___ Bereavement ___ Communion ___ Nidia exploration ___ _x__ Life review _x__ Prayer ___ Reconciliation ___ Sacrament of Sick _x__ Supportive presence ___ Wedding ___ Other (describe below) Pastoral Comments patient has been seen before; pt acknowledges that improvements in her own care need to happen; pt says that a daughter is going to move in with her and she expects that to be helpful although daughter 'works during the day' and won't be available 20/05; patient welcomes presence and prayer
[2025-05-14] MEDS: Polyethylene Glycol 3350 17 GM PACKET PO (15:29)
[2025-05-14] MEDS: Senna/Docusate Sodium 1 Tablet 2 TABLET PO ×2 (15:29→21:43)
[2025-05-15] VITALS (14 sets, daily range): BP systolic 109–120; BP diastolic 68–83; PULSE 66–81; RESP 12–28; TEMP 36.3–36.7; O2SAT 92–97
--- NOTE | 2025-05-15 02:37 | NURSING ---
Verbal report from Josh Connelly RN. This RN assuming care of patient at this time.
[2025-05-15 05:38] LABS: Hematocrit 32.3 % (37-47); Hemoglobin 9.6 g/dL (12.0-15.0); Immature Granulocytes Count 0.040 X10^3/uL (0.0-0.0); Mean Corp Hgb Conc 29.7 g/dL (32-36); Mean Corpuscular Volume 101.6 fL (81-99); Mean Platelet Vol. 11.4 fl (6.2-12.0); NRBC Flagged by Analyzer 0 % (0-5); POSITIVE DIFFERENTIAL YES; POSITIVE MORPHOLOGY YES; RBC Distribution Width CV 15.2 % (11.6-14.6); RBC Distribution Width SD 56.8 fl (35.1-43.9); Red Blood Count 3.18 M/mm3 (4.2-5.4); White Blood Count 7.5 K/mm3 (4.4-11.0)
[2025-05-15 06:09] LABS: Differential Indicated SCAN CRITERIA MET
[2025-05-15] MEDS: 0.9% Saline Lock 10 ML Syringe IV ×4 (06:20→17:00)
[2025-05-15 07:02] LABS: Anion Gap 12 (5-15); BUN 23 mg/dL (4-19); BUN/Creat Ratio 36.8 RATIO (10-20); Calcium,Total 9.6 mg/dL (7.6-11.0); Carbon Dioxide 40.8 mmol/L (21.0-32.0); Chloride 92 mmol/L (98-108); Estimated Creatinine Clearance 86.60 ml/min (50-250); Glucose 137 mg/dL (70-99); Potassium 4.6 mmol/L (3.3-5.1)
[2025-05-15] MEDS: Ensure Clear 120 ML Liquid PO ×2 (09:12→17:00)
[2025-05-15] MEDS: APIXABAN 5 MG TABLET PO ×2 (09:14→22:30)
[2025-05-15] MEDS: Polyethylene Glycol 3350 17 GM PACKET PO (09:15)
[2025-05-15] MEDS: Senna/Docusate Sodium 1 Tablet 2 TABLET PO (09:15)
[2025-05-15] MEDS: Potassium Chloride Oral Tablet 20 MEQ PO ×2 (09:17→16:59)
--- NOTE | 2025-05-15 13:16 | PCM.PN.HOSP ---
Reason for Visit Chief Complaint: Worsening shortness of breath and leg swelling Objective Data Objective Data Vital Signs: Vital Signs Temp Pulse Resp BP Pulse Ox O2 Del Method O2 Flow Rate 97.6 F L 79 16 120/68 92 High Flow 8 05/15/25 09:11 05/15/25 10:46 05/15/25 10:46 05/15/25 09:14 05/15/25 09:11 05/15/25 09:11 05/15/25 09:11 FiO2 40 05/15/25 04:00 Oxygen Flow Rate (L/min) 8 Oxygen Delivery Method High Flow Weight: 262 lb 2.991 oz Body Mass Index (BMI) 45.0 Intake & Output: Intake and Output for Last 24 Hours 05/13/25 05/14/25 05/15/25 23:59 23:59 23:59 Intake Total 1280 / 1280 Output Total 3400 / 3400 400 / 400 Balance -2120 / -2120 -400 / -400 Lab / Micro Data 05/15/25 04:58 05/15/25 04:58 Labs: Laboratory Results - last 24 hr 05/15/25 04:58: WBC 7.5, RBC 3.18 L, Hgb 9.6 L, Hct 32.3 L, MCV 101.6 H, MCH 30.2, MCHC 29.7 L, RDW Std Deviation 56.8 H, RDW Coeff of Karly 15.2 H, Plt Count TNP, MPV 11.4, Immature Gran % (Auto) 0.500, Neut % (Auto) 94.0 H, Lymph % (Auto) 4.3 L, [place] % (Auto) 1.1, Eos % (Auto) 0.0, Baso % (Auto) 0.1, Absolute Neuts (auto) 7.0, Absolute Lymphs (auto) 0.32 L, Nucleated RBC % 0, Platelet Estimate A, Plt Morphology Comment CLUMPED , Sodium 144, Potassium 4.6, Chloride 92 L, Carbon Dioxide 40.8 H, Anion Gap 12, BUN 23 H, Creatinine 0.63 L, Estim Creat Clear Calc 86.60, Est GFR (MDRD) Non-Af 97, BUN/Creatinine Ratio 36.8 H, Glucose 137 H, Calcium 9.6 Physical Exam Narrative Seen and examined. Patient admitted with extreme shortness of breath and felt mild sharp chest pain/stabbing in sensation. Chest pain was more left-sided, couple times lasted for short time about 2 to 3 minutes. She has chronic cough with mild increase in severity. No fever. No dysuria. Did not move bowels for couple days. Physical exam General: Alert, Oriented x3, Cooperative. BMI 45.0 kg/m? HEENT: Atraumatic, PERRLA, EOMI, Normocephalic. Oral: No Gingival or Mucosal Lesions/ Ulcerations Neck: Supple, No JVD, Negative Carotid Bruits Chest wall/Lungs: Air entry mild diminished diffusely. Lungs mild expiratory rhonchi in the bases but better than yesterday Cardiovascular: Regular rate and rhythm, Normal S1,S2, No M/G/R Abdomen: Bowel Sounds Present, Soft, Non Tender, Non-Distended : No dysuria. No renal angle tenderness. No suprapubic tenderness. Extremities: Bilateral 2+ pitting edema, Capillary Refill Less than 3 Seconds Skin: No rashes, No breakdown Musculoskeletal: No Tenderness to Palpation of Joints or Extremities Neurological: Cranial nerves II-XII grossly intact, DTR 2+/4. No acute focal neurological deficit. Psych/Mental Status: Flat affect. Assessment & Plan Assessment/Plan (1) Acute and chronic respiratory failure with hypercapnia: (2) Acute on chronic heart failure with preserved ejection fraction (HFpEF): PLAN: Plan Patient is a 69-year-old female who presented to [facility] ED on 05/13/2025 with worsening shortness of breath and lower extremity swelling. 1. Acute on chronic hypercapnic respiratory failure most likely due to COPD and heart failure exacerbation ? Admit under inpatient status to PCU. Suspect multifactorial due to acute on chronic HFpEF and untreated ROXY as below. ABG on admit with pH 7.36 but pCO2 92. Patient on 3.5 L at rest and 6 L on exertion at baseline. CTA chest showed no PE and no pleural effusions with mild vascular congestion, severe centrilobular emphysematous changes. Patient improved on the BiPAP, did not require intubation. 05/14: Still on high flow oxygen, 10 L, respiratory rate 20/min. Continue BiPAP during naps and at night and as needed for respiratory fatigue. Patient is being managed on scheduled bronchodilator, IV Solu-Medrol, Mucinex, incentive spirometry and Pep. Atypical chest pain described as pulmonary related, 2 serial troponins are negative. ACS ruled out. Respiratory panel negative. 05/15: Patient is doing better than yesterday with better ventilation and oxygenation. 2. Acute on chronic HFpEF with moderate pulmonary hypertension, mild valvular heart disease ? Mild vascular congestion on chest imaging and +1-2 lower extremity pitting edema on exam noted. BNP 2554, though notably BNP was 2566 on 05/07. However, patient was on Lasix 60 mg twice daily without much improvement. IV Lasix 40 mg twice daily for now, monitor daily BMP and urine output. Continue home dapagliflozin. Recent echo 02/19/2025 Interpretation Summary Borderline LV systolic function. Estimated LVEF 45-50%. Moderate global right ventricular systolic dysfunction. There is mild biatrial dilatation. Moderate (2+) eccentric mitral valve insufficiency. Mild tricuspid valve insufficiency. Right ventricular systolic pressure estimated to be 53 mmHg. The study was technically difficult. 05/15 continue diuresis. 3. Class III obesity with ROXY not on home PAP therapy ? BMI 45 on admit. Complicates hospital course and care. Patient reports having sleep study done in the past but did not think she could tolerate PAP therapy and has never had a PAP machine at home. Continue PAP therapy at night and with naps while inpatient as noted above. global logistics manager to help, set up sleep study shortly after discharge. 05/15 on BiPAP. 4. Paroxysmal A-fib/flutter on Eliquis, hypertension, hyperlipidemia, history of VTE ? Follows with outpatient cardiology. In rate controlled atrial flutter with rate in the 100s on admit. EKG showed atrial flutter with rate 106 bpm. Normotensive to hypertensive in the ED. Continue home Eliquis, amiodarone, diltiazem, Lopressor and atorvastatin. 5. Alcohol abuse ? Patient reports drinking 2 alcoholic drinks daily and on chart review, she reported 2 drinks a day during recent admission at the end of March. However, daughter noted that there are days where patient will drink 4-5 alcoholic drinks. on CIWA protocol without medications for now. Monitor. 6. History of tobacco abuse ? Encouraged continued cessation. 7. Solitary pulmonary nodules: Unchanged solid nodule in the right upper lobe measuring 1.2 x 0.4 cm, RUL measuring 3 mm. Also shows extensive centrilobular and paraseptal emphysema. Biapical scarring. Linear consolidation at posterior lung bases, right greater than left DVT prophylaxis: Not indicated, on Eliquis 5 mg twice daily. CODE STATUS: Full code, verified Laboratory Results 05/15/25 04:58: WBC 7.5, RBC 3.18 L, Hgb 9.6 L, Hct 32.3 L, MCV 101.6 H, MCH 30.2, MCHC 29.7 L, RDW Std Deviation 56.8 H, RDW Coeff of Karly 15.2 H, Plt Count TNP, MPV 11.4, Immature Gran % (Auto) 0.500, Neut % (Auto) 94.0 H, Lymph % (Auto) 4.3 L, [place] % (Auto) 1.1, Eos % (Auto) 0.0, Baso % (Auto) 0.1, Absolute Neuts (auto) 7.0, Absolute Lymphs (auto) 0.32 L, Nucleated RBC % 0, Platelet Estimate A, Plt Morphology Comment CLUMPED, Sodium 144, Potassium 4.6, Chloride 92 L, Carbon Dioxide 40.8 H, Anion Gap 12, BUN 23 H, Creatinine 0.63 L, Estim Creat Clear Calc 86.60, Est GFR (MDRD) Non-Af 97, BUN/Creatinine Ratio 36.8 H, Glucose 137 H, Calcium 9.6 Clinical Impression(s) from Imaging Studies Chest CTA 05/13/25 13:49 IMPRESSION: 1. Markedly limited exam, without evidence of central pulmonary embolism. Consider repeating this exam if there is persistent concern for a more distal embolism. 2. Similar appearance of the lungs compared to CT on 02/20/2025, to include solid pulmonary nodules measuring up to 1.2 cm in size. Recommend repeat CT in 6-12 months, and Pulmonology referral if not already performed. 3. Multiple hypodense lesions in the spleen measuring up to 2.[address] abdomen and pelvis for further evaluation, particularly if the patient has a history of malignancy or associated symptoms. Reading Location: [id number] Charges/Coding Visit Charges Inpatient E&M: 70267 Subs Hosp L2
[2025-05-16] VITALS (16 sets, daily range): BP systolic 103–134; BP diastolic 61–79; PULSE 51–80; RESP 12–24; TEMP 36.4–36.8; O2SAT 91–99
[2025-05-16 04:39] LABS: Hematocrit 30.9 % (37-47); Hemoglobin 9.5 g/dL (12.0-15.0); Immature Granulocytes Count 0.050 X10^3/uL (0.0-0.0); Mean Corp Hgb Conc 30.7 g/dL (32-36); Mean Corpuscular Volume 98.4 fL (81-99); Mean Platelet Vol. 11.5 fl (6.2-12.0); NRBC Flagged by Analyzer 0 % (0-5); POSITIVE DIFFERENTIAL YES; Platelet Count 142 K/mm3 (150-450); RBC Distribution Width CV 15.4 % (11.6-14.6); RBC Distribution Width SD 54.3 fl (35.1-43.9); Red Blood Count 3.14 M/mm3 (4.2-5.4); White Blood Count 8.9 K/mm3 (4.4-11.0)
[2025-05-16 05:16] LABS: Anion Gap 10 (5-15); BUN 31 mg/dL (4-19); BUN/Creat Ratio 46.8 RATIO (10-20); Calcium,Total 9.2 mg/dL (7.6-11.0); Carbon Dioxide 39.8 mmol/L (21.0-32.0); Chloride 91 mmol/L (98-108); Estimated Creatinine Clearance 86.60 ml/min (50-250); Glucose 162 mg/dL (70-99); Potassium 4.5 mmol/L (3.3-5.1)
[2025-05-16] MEDS: Ensure Clear 120 ML Liquid PO ×2 (09:13→11:46)
[2025-05-16] MEDS: Potassium Chloride Oral Tablet 20 MEQ PO ×2 (09:13→17:42)
[2025-05-16] MEDS: APIXABAN 5 MG TABLET PO ×2 (09:15→21:40)
[2025-05-16] MEDS: 0.9% Saline Lock 10 ML Syringe IV ×4 (09:16→21:44)
--- NOTE | 2025-05-16 13:42 | PN.HOSP_ITS ---
Reason for Visit Chief Complaint: Worsening shortness of breath and leg swelling Objective Data Objective Data Vital Signs: Vital Signs Temp Pulse Resp BP Pulse Ox O2 Del Method O2 Flow Rate 98.3 F 67 18 117/79 98 Nasal Cannula 4 05/16/25 09:08 05/16/25 13:13 05/16/25 13:13 05/16/25 09:15 05/16/25 13:20 05/16/25 13:20 05/16/25 13:20 FiO2 40 05/16/25 02:37 Oxygen Flow Rate (L/min) 4 Oxygen Delivery Method Nasal Cannula Weight: 262 lb 2.991 oz Body Mass Index (BMI) 45.0 Intake & Output: Intake and Output for Last 24 Hours 05/14/25 05/15/25 05/16/25 23:59 23:59 23:59 Intake Total 1280 / 1280 Output Total 3400 / 3400 2100 / 2850 1350 / 1350 Balance -2120 / -2120 -2100 / -2850 -1350 / -1350 Lab / Micro Data 05/16/25 04:07 05/16/25 04:07 Labs: Laboratory Results - last 24 hr 05/16/25 04:07: WBC 8.9, RBC 3.14 L, Hgb 9.5 L, Hct 30.9 L, MCV 98.4, MCH 30.3, MCHC 30.7 L, RDW Std Deviation 54.3 H, RDW Coeff of Karly 15.4 H, Plt Count 142 L, MPV 11.5, Immature Gran % (Auto) 0.600, Neut % (Auto) 93.2 H, Lymph % (Auto) 3.2 L, [place] % (Auto) 2.9, Eos % (Auto) 0.0, Baso % (Auto) 0.1, Absolute Neuts (auto) 8.3 H, Absolute Lymphs (auto) 0.28 L, Nucleated RBC % 0, Sodium 141, Potassium 4.5, Chloride 91 L, Carbon Dioxide 39.8 H, Anion Gap 10, BUN 31 H, Creatinine 0.66 L, Estim Creat Clear Calc 86.60, Est GFR (MDRD) Non-Af 96, BUN/Creatinine Ratio 46.8 H, Glucose 162 H, Calcium 9.2 Physical Exam Narrative Seen and examined. Patient has moved his bowel. Her breathing is better but she is still on 4 to 6 L of high flow oxygen. Using BiPAP at night. Patient admitted with extreme shortness of breath and felt mild sharp chest pain/stabbing in sensation. She has chronic cough with mild increase in severity. No fever. No dysuria. Physical exam General: Alert, Oriented x3, Cooperative. BMI 45.0 kg/m? HEENT: Atraumatic, PERRLA, EOMI, Normocephalic. Oral: No Gingival or Mucosal Lesions/ Ulcerations Neck: Supple, No JVD, Negative Carotid Bruits Chest wall/Lungs: Air entry mild diminished diffusely. Lungs are clear. Cardiovascular: Regular rate and rhythm, Normal S1,S2, No M/G/R Abdomen: Bowel Sounds Present, Soft, Non Tender, Non-Distended : No dysuria. No renal angle tenderness. No suprapubic tenderness. Extremities: Bilateral 2+ pitting edema, Capillary Refill Less than 3 Seconds Skin: No rashes, No breakdown Musculoskeletal: No Tenderness to Palpation of Joints or Extremities Neurological: Cranial nerves II-XII grossly intact, DTR 2+/4. No acute focal neurological deficit. Psych/Mental Status: Flat affect. Assessment & Plan Assessment/Plan (1) Acute and chronic respiratory failure with hypercapnia: (2) Acute on chronic heart failure with preserved ejection fraction (HFpEF): PLAN: Plan Patient is a 69-year-old female who presented to [facility] ED on 05/13/2025 with worsening shortness of breath and lower extremity swelling. 1. Acute on chronic hypercapnic respiratory failure most likely due to COPD and heart failure exacerbation ? Admit under inpatient status to PCU. Suspect multifactorial due to acute on chronic HFpEF and untreated ROXY as below. ABG on admit with pH 7.36 but pCO2 92. Patient on 3.5 L at rest and 6 L on exertion at baseline. CTA chest showed no PE and no pleural effusions with mild vascular congestion, severe centrilobular emphysematous changes. Patient improved on the BiPAP, did not require intubation. 05/14: Still on high flow oxygen, 10 L, respiratory rate 20/min. Continue BiPAP during naps and at night and as needed for respiratory fatigue. Patient is being managed on scheduled bronchodilator, IV Solu-Medrol, Mucinex, incentive spirometry and Pep. Atypical chest pain described as pulmonary related, 2 serial troponins are negative. ACS ruled out. Respiratory panel negative. 05/15: Patient is doing better than yesterday with better ventilation and oxygenation. 05/16: Patient is gradually improving but she still needs 4 to 6 L of high flow oxygen therefore probably 1 more day. control officer manager for discharge planning. 2. Acute on chronic HFpEF with moderate pulmonary hypertension, mild valvular heart disease ? Mild vascular congestion on chest imaging and +1-2 lower extremity pitting edema on exam noted. BNP 2554, though notably BNP was 2566 on 05/07. However, patient was on Lasix 60 mg twice daily without much improvement. IV Lasix 40 mg twice daily for now, monitor daily BMP and urine output. Continue home dapagliflozin. Recent echo 02/19/2025 Interpretation Summary Borderline LV systolic function. Estimated LVEF 45-50%. Moderate global right ventricular systolic dysfunction. There is mild biatrial dilatation. Moderate (2+) eccentric mitral valve insufficiency. Mild tricuspid valve insufficiency. Right ventricular systolic pressure estimated to be 53 mmHg. The study was technically difficult. 05/15 continue diuresis. 05/16: Patient still has significant leg swelling 2+ edema therefore Dipak wrap bandage 3. Class III obesity with ROXY not on home PAP therapy ? BMI 45 on admit. Complicates hospital course and care. Patient reports having sleep study done in the past but did not think she could tolerate PAP therapy and has never had a PAP machine at home. Continue PAP therapy at night and with naps while inpatient as noted above. control officer manager to help, set up sleep study shortly after discharge. 05/15 on BiPAP. 4. Paroxysmal A-fib/flutter on Eliquis, hypertension, hyperlipidemia, history of VTE ? Follows with outpatient cardiology. In rate controlled atrial flutter with rate in the 100s on admit. EKG showed atrial flutter with rate 106 bpm. Normotensive to hypertensive in the ED. Continue home Eliquis, amiodarone, diltiazem, Lopressor and atorvastatin. 5. Alcohol abuse ? Patient reports drinking 2 alcoholic drinks daily and on chart review, she reported 2 drinks a day during recent admission at the end of March. However, daughter noted that there are days where patient will drink 4-5 alcoholic drinks. on CIWA protocol without medications for now. Monitor. 6. History of tobacco abuse ? Encouraged continued cessation. 7. Solitary pulmonary nodules: Unchanged solid nodule in the right upper lobe measuring 1.2 x 0.4 cm, RUL measuring 3 mm. Also shows extensive centrilobular and paraseptal emphysema. Biapical scarring. Linear consolidation at posterior lung bases, right greater than left DVT prophylaxis: Not indicated, on Eliquis 5 mg twice daily. CODE STATUS: Full code, verified Laboratory Results 05/16/25 04:07: WBC 8.9, RBC 3.14 L, Hgb 9.5 L, Hct 30.9 L, MCV 98.4, MCH 30.3, MCHC 30.7 L, RDW Std Deviation 54.3 H, RDW Coeff of Karly 15.4 H, Plt Count 142 L, MPV 11.5, Immature Gran % (Auto) 0.600, Neut % (Auto) 93.2 H, Lymph % (Auto) 3.2 L, [place] % (Auto) 2.9, Eos % (Auto) 0.0, Baso % (Auto) 0.1, Absolute Neuts (auto) 8.3 H, Absolute Lymphs (auto) 0.28 L, Nucleated RBC % 0, Sodium 141, Potassium 4.5, Chloride 91 L, Carbon Dioxide 39.8 H, Anion Gap 10, B UN 31 H, Creatinine 0.66 L, Estim Creat Clear Calc 86.60, Est GFR (MDRD) Non-Af 96, BUN/Creatinine Ratio 46.8 H, Glucose 162 H, Calcium 9.2 Laboratory Results 05/15/25 04:58: WBC 7.5, RBC 3.18 L, Hgb 9.6 L, Hct 32.3 L, MCV 101.6 H, MCH 30.2, MCHC 29.7 L, RDW Std Deviation 56.8 H, RDW Coeff of Karly 15.2 H, Plt Count TNP, MPV 11.4, Immature Gran % (Auto) 0.500, Neut % (Auto) 94.0 H, Lymph % (Auto) 4.3 L, [place] % (Auto) 1.1, Eos % (Auto) 0.0, Baso % (Auto) 0.1, Absolute Neuts (auto) 7.0, Absolute Lymphs (auto) 0.32 L, Nucleated RBC % 0, Platelet Estimate A, Plt Morphology Comment CLUMPED, Sodium 144, Potassium 4.6, Chloride 92 L, Carbon Dioxide 40.8 H, Anion Gap 12, BUN 23 H, Creatinine 0.63 L, Estim Creat Clear Calc 86.60, Est GFR (MDRD) Non-Af 97, BUN/Creatinine Ratio 36.8 H, G lucose 137 H, Calcium 9.6 Clinical Impression(s) from Imaging Studies Chest CTA 05/13/25 13:49 IMPRESSION: 1. Markedly limited exam, without evidence of central pulmonary embolism. Consider repeating this exam if there is persistent concern for a more distal embolism. 2. Similar appearance of the lungs compared to CT on 02/20/2025, to include solid pulmonary nodules measuring up to 1.2 cm in size. Recommend repeat CT in 6-12 months, and Pulmonology referral if not already performed. 3. Multiple hypodense lesions in the spleen measuring up to 2.[address] abdomen and pelvis for further evaluation, particularly if the patient has a history of malignancy or associated symptoms. Reading Location: [facility] Charges/Coding Visit Charges Inpatient E&M: 22795 Subs Hosp L2
[2025-05-16] MEDS: Senna/Docusate Sodium 1 Tablet 2 TABLET PO (21:40)
[2025-05-17] VITALS (9 sets, daily range): BP systolic 122–133; BP diastolic 62–78; PULSE 54–78; RESP 12–21; TEMP 36.6–36.8; O2SAT 35–98
--- NOTE | 2025-05-17 07:50 | PN.HOSP_ITS ---
Reason for Visit Chief Complaint: Worsening shortness of breath and leg swelling Objective Data Objective Data Vital Signs: Vital Signs Temp Pulse Resp BP Pulse Ox O2 Del Method O2 Flow Rate 98 F 68 18 133/78 H 98 Nasal Cannula 6 05/17/25 02:00 05/17/25 07:00 05/17/25 07:00 05/17/25 02:00 05/17/25 07:00 05/17/25 07:00 05/17/25 07:00 FiO2 35 05/17/25 02:41 Oxygen Flow Rate (L/min) 6 Oxygen Delivery Method Nasal Cannula Weight: 262 lb 2.991 oz Body Mass Index (BMI) 45.0 Intake & Output: Intake and Output for Last 24 Hours 05/15/25 05/16/25 05/17/25 23:59 23:59 23:59 Intake Total 360 / 360 600 / 600 Output Total 2100 / 2850 3450 / 3450 450 / 450 Balance -2100 / -2850 -3090 / -3090 150 / 150 Lab / Micro Data 05/16/25 04:07 05/16/25 04:07 Physical Exam Narrative Seen and examined. Patient has moved his bowel. Her breathing is better but she is still on 4 to 6 L of high flow oxygen. Using BiPAP at night. Patient admitted with extreme shortness of breath and felt mild sharp chest pain/stabbing in sensation. She has chronic cough with mild increase in severity. No fever. No dysuria. Physical exam General: Alert, Oriented x3, Cooperative. BMI 45.0 kg/m? HEENT: Atraumatic, PERRLA, EOMI, Normocephalic. Oral: No Gingival or Mucosal Lesions/ Ulcerations Neck: Supple, No JVD, Negative Carotid Bruits Chest wall/Lungs: Air entry mild diminished diffusely. Lungs are clear. Cardiovascular: Regular rate and rhythm, Normal S1,S2, No M/G/R Abdomen: Bowel Sounds Present, Soft, Non Tender, Non-Distended : No dysuria. No renal angle tenderness. No suprapubic tenderness. Extremities: Bilateral 2+ pitting edema, Capillary Refill Less than 3 Seconds Skin: No rashes, No breakdown Musculoskeletal: No Tenderness to Palpation of Joints or Extremities Neurological: Cranial nerves II-XII grossly intact, DTR 2+/4. No acute focal neurological deficit. Psych/Mental Status: Flat affect. Const alert, oriented x3 and no apparent distress Constitutional Narrative: Elderly female, class III obesity, mildly fatigued appearing, breathing comfortably on BiPAP and answering questions appropriately, sitting back comfortably in bed, in no acute distress. General Appearance: cooperative and comfortable HEENT normocephalic, head/scalp atraumatic, hearing grossly normal bilaterally, nasal mucous membranes and turbinates normal and moist oral mucous membranes Eyes PERRL, EOMs intact bilaterally and conjunctivae normal Neck full ROM Chest inspection of chest normal Resp normal respiratory effort and no use of accessory muscles Resp Narrative: Breathing comfortably on BiPAP at rest. Diminished breath sounds noted throughout but no wheezing or crackles noted. Cardio regular rate, regular rhythm, no murmurs and peripheral pulses 2+ throughout GI normal to inspection, nondistended, normoactive bowel sounds, soft to palpation, non-tender and non-distended Back/Spine normal ROM Extremity Extremity Narrative: +1-2 lower extremity pitting edema noted. Skin no rashes or lesions noted Psych mental status grossly normal Assessment & Plan Assessment/Plan (1) Acute and chronic respiratory failure with hypercapnia: (2) Acute on chronic heart failure with preserved ejection fraction (HFpEF): PLAN: Plan Patient is a 69-year-old female who presented to [facility] ED on 05/13/2025 with worsening shortness of breath and lower extremity swelling. 1. Acute on chronic hypercapnic respiratory failure most likely due to COPD and heart failure exacerbation ? Admit under inpatient status to PCU. Suspect multifactorial due to acute on chronic HFpEF and untreated ROXY as below. ABG on admit with pH 7.36 but pCO2 92. Patient on 3.5 L at rest and 6 L on exertion at baseline. CTA chest showed no PE and no pleural effusions with mild vascular congestion, severe centrilobular emphysematous changes. Patient improved on the BiPAP, did not require intubation. 05/14: Still on high flow oxygen, 10 L, respiratory rate 20/min. Continue BiPAP during naps and at night and as needed for respiratory fatigue. Patient is being managed on scheduled bronchodilator, IV Solu-Medrol, Mucinex, incentive spirometry and Pep. Atypical chest pain described as pulmonary related, 2 serial troponins are negative. ACS ruled out. Respiratory panel negative. 05/15: Patient is doing better than yesterday with better ventilation and oxygenation. 05/16: Patient is gradually improving but she still needs 4 to 6 L of high flow oxygen therefore probably 1 more day. health program manager for discharge planning. 2. Acute on chronic HFpEF with moderate pulmonary hypertension, mild valvular heart disease ? Mild vascular congestion on chest imaging and +1-2 lower extremity pitting edema on exam noted. BNP 2554, though notably BNP was 2566 on 05/07. However, patient was on Lasix 60 mg twice daily without much improvement. IV Lasix 40 mg twice daily for now, monitor daily BMP and urine output. Continue home dapagliflozin. Recent echo 02/19/2025 Interpretation Summary Borderline LV systolic function. Estimated LVEF 45-50%. Moderate global right ventricular systolic dysfunction. There is mild biatrial dilatation. Moderate (2+) eccentric mitral valve insufficiency. Mild tricuspid valve insufficiency. Right ventricular systolic pressure estimated to be 53 mmHg. The study was technically difficult. 05/15 continue diuresis. 05/16: Patient still has significant leg swelling 2+ edema therefore Dipak wrap bandage 3. Class III obesity with ROXY not on home PAP therapy ? BMI 45 on admit. Complicates hospital course and care. Patient reports having sleep study done in the past but did not think she could tolerate PAP therapy and has never had a PAP machine at home. Continue PAP therapy at night and with naps while inpatient as noted above. health program manager to help, set up sleep study shortly after discharge. 05/15 on BiPAP. 4. Paroxysmal A-fib/flutter on Eliquis, hypertension, hyperlipidemia, history of VTE ? Follows with outpatient cardiology. In rate controlled atrial flutter with rate in the 100s on admit. EKG showed atrial flutter with rate 106 bpm. Normotensive to hypertensive in the ED. Continue home Eliquis, amiodarone, diltiazem, Lopressor and atorvastatin. 5. Alcohol abuse ? Patient reports drinking 2 alcoholic drinks daily and on chart review, she reported 2 drinks a day during recent admission at the end of March. However, daughter noted that there are days where patient will drink 4-5 alcoholic drinks. on CIWA protocol without medications for now. Monitor. 6. History of tobacco abuse ? Encouraged continued cessation. 7. Solitary pulmonary nodules: Unchanged solid nodule in the right upper lobe measuring 1.2 x 0.4 cm, RUL measuring 3 mm. Also shows extensive centrilobular and paraseptal emphysema. Biapical scarring. Linear consolidation at posterior lung bases, right greater than left DVT prophylaxis: Not indicated, on Eliquis 5 mg twice daily. CODE STATUS: Full code, verified Laboratory Results 05/16/25 04:07: WBC 8.9, RBC 3.14 L, Hgb 9.5 L, Hct 30.9 L, MCV 98.4, MCH 30.3, MCHC 30.7 L, RDW Std Deviation 54.3 H, RDW Coeff of Karly 15.4 H, Plt Count 142 L, MPV 11.5, Immature Gran % (Auto) 0.600, Neut % (Auto) 93.2 H, Lymph % (Auto) 3.2 L, [place] % (Auto) 2.9, Eos % (Auto) 0.0, Baso % (Auto) 0.1, Absolute Neuts (auto) 8.3 H, Absolute Lymphs (auto) 0.28 L, Nucleated RBC % 0, Sodium 141, Potassium 4.5, Chloride 91 L, Carbon Dioxide 39.8 H, Anion Gap 10, B UN 31 H, Creatinine 0.66 L, Estim Creat Clear Calc 86.60, Est GFR (MDRD) Non-Af 96, BUN/Creatinine Ratio 46.8 H, Glucose 162 H, Calcium 9.2 Laboratory Results 05/15/25 04:58: WBC 7.5, RBC 3.18 L, Hgb 9.6 L, Hct 32.3 L, MCV 101.6 H, MCH 30.2, MCHC 29.7 L, RDW Std Deviation 56.8 H, RDW Coeff of Karly 15.2 H, Plt Count TNP, MPV 11.4, Immature Gran % (Auto) 0.500, Neut % (Auto) 94.0 H, Lymph % (Auto) 4.3 L, [place] % (Auto) 1.1, Eos % (Auto) 0.0, Baso % (Auto) 0.1, Absolute Neuts (auto) 7.0, Absolute Lymphs (auto) 0.32 L, Nucleated RBC % 0, Platelet Estimate A, Plt Morphology Comment CLUMPED, Sodium 144, Potassium 4.6, Chloride 92 L, Carbon Dioxide 40.8 H, Anion Gap 12, BUN 23 H, Creatinine 0.63 L, Estim Creat Clear Calc 86.60, Est GFR (MDRD) Non-Af 97, BUN/Creatinine Ratio 36.8 H, G lucose 137 H, Calcium 9.6 Clinical Impression(s) from Imaging Studies Chest CTA 05/13/25 13:49 IMPRESSION: 1. Markedly limited exam, without evidence of central pulmonary embolism. Consider repeating this exam if there is persistent concern for a more distal embolism. 2. Similar appearance of the lungs compared to CT on 02/20/2025, to include solid pulmonary nodules measuring up to 1.2 cm in size. Recommend repeat CT in 6-12 months, and Pulmonology referral if not already performed. 3. Multiple hypodense lesions in the spleen measuring up to 2.[address] abdomen and pelvis for further evaluation, particularly if the patient has a history of malignancy or associated symptoms. Reading Location: [id number]
--- NOTE | 2025-05-17 07:51 | DCINST_ITS ---
Discharge Instructions DC O2, CPAP, BIPAP needs Home O2 Discharge instructions: Yes Type of respiratory needs?: Oxygen Oxygen frequency: Continuous Continuous oxygen liters per minute: 6 Dressing / Incision Discharge Activity: Return to Normal Activity Weight Bearing Status: Weight bearing as tolerated Dressing / Incision Call your doctor if you observe: Fever of 101 or Higher, Coldness, Increased [place] n, Numbness or Tingling, Change in Color, Inability to urinate, Inability to have a bowel movement, Shortness of breath, Dizziness, Fainting spells, Swelling in the ankles, Chest pain, Prolonged hiccupping, Increased palpitations (irregular heartbeat) and Calf discomfort Follow Up Care When: IN 2 WEEKS Test Results: Test results from this visit will be discussed in further detail at your follow- up appointment, if applicable. Discharge Plan Admission Admit Date/Time: 05/13/25 18:22 Primary Reason for Your Visit: COPD exacerbation Attending Provider: George Polanco Primary Care Provider: Phuc Martines Consulting Providers: Nicko Vallejo Discharge Orders/Prescriptions Prescriptions: New prednisone 10 mg tablet 10 mg PO DAILY Qty: 30 0RF Rx Instructions: 40 mg for 3 days 30 mg for 3 days, 20 mg for 3 days,and 10 mg for 3 days Continued cinnamon bark [Cinnamon] 500 mg capsule 500 mg PO QDAY mecobalamin (vitamin B12) 1,000 mcg tablet,chewable 1,000 mcg PO QDAY dapagliflozin propanediol [Farxiga] 10 mg tablet 10 mg PO QAM Qty: 30 11RF Eliquis 5 mg tablet 5 mg PO BID Qty: 180 3RF metoprolol tartrate 50 mg tablet 50 mg PO BID Qty: 180 3RF potassium chloride [Klor-Con M20] 20 mEq tablet,ER particles/crystals 20 meq PO BID Qty: 180 3RF diltiazem HCl 180 mg capsule,extended release 24hr 180 mg PO Q12 Qty: 180 3RF atorvastatin 40 mg tablet 40 mg PO QHS Qty: 90 3RF Oxygen, Home [Home Oxygen] 2 - 4 lpm NASAL QHS ascorbic acid (vitamin C) 500 mg capsule 500 mg PO DAILY PRN (Reason: supplement) Patient Comments: only takes in winter albuterol sulfate 90 mcg/actuation aerosol powdr breath activated 2 inh inhalation Q6H PRN (Reason: shortness of breath) Trelegy Ellipta 200-62.5-25 mcg blister with device 1 ea inhalation DAILY ipratropium-albuterol 0.5 mg-3 mg(2.5 mg base)/3 mL solution for nebulization 3 ml inhalation Q6H PRN (Reason: shortness of breath) multivitamin [Daily Multi-Vitamin] Tablet 1 tab PO DAILY [place] Saline 0.65 % aerosol,spray 1 spray intranasal BID PRN (Reason: dry nasal passages) nystatin 100,000 unit/gram cream 1 applic topical BID amiodarone 200 mg tablet 200 mg PO DAILY Changed furosemide 40 mg tablet 60 mg PO BID Qty: 180 3RF guaifenesin [Mucus Relief ER] 1,200 MG tablet 1,200 mg PO BID 7 Days Qty: 0 0RF Referrals / Follow Up: Phuc Martines DO [Primary Care Provider] - Disposition Disposition (needs filled in before D/C Order can be placed): [facility] Facility
--- NOTE | 2025-05-17 08:18 | TREXTCAR_ITS ---
Diet Diet Order/Speech Therapy: INPATIENT Hospital Diet / Speech Therapy Order(s) 05/13/25 19:38 Diet: Cardiac - Heart Healthy Food consistency:: Regular Liquid Consistency:: Regular/Thin Routine Orders/Code Status Suppository Type: Dulcolax 10mg Suppository Frequency: Daily PRN DC O2, CPAP, BIPAP needs Home O2 Discharge instructions: Yes Type of respiratory needs?: Oxygen Oxygen frequency: Continuous Continuous oxygen liters per minute: 6 Therapies Extremity Affected:: Bilateral Lower Physical Therapy: Eval and Treat Occupational Therapy: Eval and Treat Speech Therapy: Eval and Treat Problem/Diagnosis (1) Acute and chronic respiratory failure with hypercapnia: Status: Chronic Code(s): J96.22 - Acute and chronic respiratory failure with hypercapnia (2) Acute on chronic heart failure with preserved ejection fraction (HFpEF): Status: Acute Code(s): I50.33 - Acute on chronic diastolic (congestive) heart failure Plan Patient is a 69-year-old female who presented to [facility] ED on 05/13/2025 with worsening shortness of breath and lower extremity swelling. 1. Acute on chronic hypercapnic respiratory failure most likely due to COPD and heart failure exacerbation ? Admit under inpatient status to PCU. Suspect multifactorial due to acute on chronic HFpEF and untreated ROXY as below. ABG on admit with pH 7.36 but pCO2 92. Patient on 3.5 L at rest and 6 L on exertion at baseline. CTA chest showed no PE and no pleural effusions with mild vascular congestion, severe centrilobular emphysematous changes. Patient improved on the BiPAP, did not require intubation. 05/14: Still on high flow oxygen, 10 L, respiratory rate 20/min. Continue BiPAP during naps and at night and as needed for respiratory fatigue. Patient is being managed on scheduled bronchodilator, IV Solu-Medrol, Mucinex, incentive spirometry and Pep. Atypical chest pain described as pulmonary related, 2 serial troponins are negative. ACS ruled out. Respiratory panel negative. 05/15: Patient is doing better than yesterday with better ventilation and oxygenation. 05/16: Patient is gradually improving but she still needs 4 to 6 L of high flow oxygen therefore probably 1 more day. education and development manager for discharge planning. 05/17: She is on baseline of oxygen 4 to 6 L at home. She has been discharged to rehab. Tapering dose of prednisone given. She has inhaler/DuoNebnebulization, Mucinex. Continue incentive spirometry and PEP for 1 week 2. Acute on chronic HFpEF with moderate pulmonary hypertension, mild valvular heart disease ? Mild vascular congestion on chest imaging and +1-2 lower extremity pitting edema on exam noted. BNP 2554, though notably BNP was 2566 on 05/07. However, patient was on Lasix 60 mg twice daily without much improvement. IV Lasix 40 mg twice daily for now, monitor daily BMP and urine output. Continue home dapagliflozin. Recent echo 02/19/2025 Interpretation Summary Borderline LV systolic function. Estimated LVEF 45-50%. Moderate global right ventricular systolic dysfunction. There is mild biatrial dilatation. Moderate (2+) eccentric mitral valve insufficiency. Mild tricuspid valve insufficiency. Right ventricular systolic pressure estimated to be 53 mmHg. The study was technically difficult. 05/15 continue diuresis. 05/16: Patient still has significant leg swelling 2+ edema therefore Dipak wrap bandage 05/17: Furosemide 40 mg twice daily home dose increased to 60 mg p.o. twice daily. Continue Dipak wrap bandage. 3. Class III obesity with ROXY not on home PAP therapy ? BMI 45 on admit. Complicates hospital course and care. Patient reports having sleep study done in the past but did not think she could tolerate PAP therapy and has never had a PAP machine at home. Continue PAP therapy at night and with naps while inpatient as noted above. education and development manager to help, set up sleep study shortly after discharge. 05/15 on BiPAP. 05/17 follow-up in pulmonary clinic. 4. Paroxysmal A-fib/flutter on Eliquis, hypertension, hyperlipidemia, history of VTE ? Follows with outpatient cardiology. In rate controlled atrial flutter with rate in the 100s on admit. EKG showed atrial flutter with rate 106 bpm. Normotensive to hypertensive in the ED. Continue home Eliquis, amiodarone, diltiazem, Lopressor and atorvastatin. 5. Alcohol abuse ? Patient reports drinking 2 alcoholic drinks daily and on chart review, she reported 2 drinks a day during recent admission at the end of March. However, daughter noted that there are days where patient will drink 4-5 alcoholic drinks. on CIWA protocol without medications for now. Monitor. 6. History of tobacco abuse ? Encouraged continued cessation. 7. Solitary pulmonary nodules: Unchanged solid nodule in the right upper lobe measuring 1.2 x 0.4 cm, RUL measuring 3 mm. Also shows extensive centrilobular and paraseptal emphysema. Biapical scarring. Linear consolidation at posterior lung bases, right greater than left DVT prophylaxis: Not indicated, on Eliquis 5 mg twice daily. CODE STATUS: Full code, verified Discharge medication reconciliation done. Discharge follow-up instructions completed. Discharge process discussed with the patient and all questions were answered to patient's satisfaction. Follow with PCP in 1 to 2 weeks Total time spent, exact 35 minutes on discharge meds reconciliation, examination, coordination of care with nurses and ancillary staff, review of imaging and blood test and discussion with the patient on follow-up instructions. Clinical Impression(s) from Imaging Studies Chest CTA 05/13/25 13:49 IMPRESSION: 1. Markedly limited exam, without evidence of central pulmonary embolism. Consider repeating this exam if there is persistent concern for a more distal embolism. 2. Similar appearance of the lungs compared to CT on 02/20/2025, to include solid pulmonary nodules measuring up to 1.2 cm in size. Recommend repeat CT in 6-12 months, and Pulmonology referral if not already performed. 3. Multiple hypodense lesions in the spleen measuring up to 2.[address] abdomen and pelvis for further evaluation, particularly if the patient has a history of malignancy or associated symptoms. Reading Location: [facility] Allergies/Procedures Done in Hospital Allergies ibuprofen (From Advil) Allergy (Mild, Verified 05/13/25 13:10) Hives nitrofurantoin (From Macrobid) Allergy (Verified 05/13/25 13:10) Rash Type of Care/Length of Stay Estimated LOS: Convalescent Care Less Than 30 days Type of Care Needed: Skilled Rehab Potential: Good Prognosis: Good Additional Orders/Day of Discharge Day of Discharge: 05/17/25 Dietary and Speech Recommendations Dietitian Recommendations/Changes: Continue cardiac diet to manage medication conditions. Continue 120ml ensure clear TID with medpass per pt request. Will monitor weight trends. 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 chronically advised to follow-up in 1 to 2 weeks and get PFT and sleep study Discharge Orders/Prescriptions Prescriptions: New prednisone 10 mg tablet 10 mg PO DAILY Qty: 30 0RF Rx Instructions: 40 mg for 3 days 30 mg for 3 days, 20 mg for 3 days,and 10 mg for 3 days Continued cinnamon bark [Cinnamon] 500 mg capsule 500 mg PO QDAY mecobalamin (vitamin B12) 1,000 mcg tablet,chewable 1,000 mcg PO QDAY dapagliflozin propanediol [Farxiga] 10 mg tablet 10 mg PO QAM Qty: 30 11RF Eliquis 5 mg tablet 5 mg PO BID Qty: 180 3RF metoprolol tartrate 50 mg tablet 50 mg PO BID Qty: 180 3RF potassium chloride [Klor-Con M20] 20 mEq tablet,ER particles/crystals 20 meq PO BID Qty: 180 3RF diltiazem HCl 180 mg capsule,extended release 24hr 180 mg PO Q12 Qty: 180 3RF atorvastatin 40 mg tablet 40 mg PO QHS Qty: 90 3RF Oxygen, Home [Home Oxygen] 2 - 4 lpm NASAL QHS ascorbic acid (vitamin C) 500 mg capsule 500 mg PO DAILY PRN (Reason: supplement) Patient Comments: only takes in winter albuterol sulfate 90 mcg/actuation aerosol powdr breath activated 2 inh inhalation Q6H PRN (Reason: shortness of breath) Trelegy Ellipta 200-62.5-25 mcg blister with device 1 ea inhalation DAILY ipratropium-albuterol 0.5 mg-3 mg(2.5 mg base)/3 mL solution for nebulization 3 ml inhalation Q6H PRN (Reason: shortness of breath) multivitamin [Daily Multi-Vitamin] Tablet 1 tab PO DAILY [place] Saline 0.65 % aerosol,spray 1 spray intranasal BID PRN (Reason: dry nasal passages) nystatin 100,000 unit/gram cream 1 applic topical BID amiodarone 200 mg tablet 200 mg PO DAILY Changed furosemide 40 mg tablet 60 mg PO BID Qty: 180 3RF guaifenesin [Mucus Relief ER] 1,200 MG tablet 1,200 mg PO BID 7 Days Qty: 0 0RF Referrals / Follow Up: Phuc Martines DO [Primary Care Provider] - Disposition Disposition (needs filled in before D/C Order can be placed): [facility] Facility
--- NOTE | 2025-05-17 08:51 | CASEMGMT ---
Discharge Planning A list of?SNF providers including quality and resource use data and consistent with the patient's preferred geographic region, medical needs, and insurance network was created in [facility] Guide.? This list was provided to the SW. Christy Moran Discharge Planning Asst.
--- NOTE | 2025-05-17 10:26 | CASEMGMT ---
Addendum entered by Lisha Solorio 05/17/25 11:38: Patient has been accepted by [facility]. RN JESÚS updated hospitalist, patient ready for discharge. RN CM updated patient regarding acceptance and discharge planned for today. RN JESÚS called daughter, no answer and voicemail box is full. RN CM updated patient, she states she will text daughter. RN JESÚS completed 7000. Discharge urban planning teacher to complete discharge to [facility]. Original Note: RN JESÚS updated that patient is interested in SNF at discharge. RN CM in to discuss needs at discharge and possible SNF. RN CM provided patient with SNF list. Patient states she is weaker and is needing additional therapy to build endurance. Patient states she prefers 1. [facility] 2. [facility]. Patient had no further questions or concerns. HERRERA ESPINOSA updated DC Charge Entry Clerk to send referral to [facility]. CM will continue to follow this patient and plan for a safe discharge.
[2025-05-17] MEDS: APIXABAN 5 MG TABLET PO (10:39)
[2025-05-17] MEDS: Senna/Docusate Sodium 1 Tablet 2 TABLET PO (10:39)
[2025-05-17] MEDS: Polyethylene Glycol 3350 17 GM PACKET PO (10:40)
[2025-05-17] MEDS: Potassium Chloride Oral Tablet 20 MEQ PO (10:40)
--- NOTE | 2025-05-17 10:42 | CASEMGMT ---
Addendum entered by Christy Moran 05/17/25 11:03: [facility] has accepted. HERRERA CM updated. Christy Moran DC Plannign Asst. Original Note: Discharge Planning Referral sent to [facility]. Christy Moran DC Planning Asst.
--- NOTE | 2025-05-17 11:13 | PCM.DC.SUM ---
Providers Date of Admission: 05/13/25 Date of Discharge: 05/17/25 Primary Care Physician: Dr. Phuc Martines DO Reason For Visit: ACUTE HYPERCAPNIC RESP FAILURE, MILD HFPEF EXAC Diagnosis Discharge Diagnosis (1) Acute and chronic respiratory failure with hypercapnia: Status: Chronic Code(s): J96.22 - Acute and chronic respiratory failure with hypercapnia (2) Acute on chronic heart failure with preserved ejection fraction (HFpEF): Status: Acute Code(s): I50.33 - Acute on chronic diastolic (congestive) heart failure Plan Patient is a 69-year-old female who presented to [facility] ED on 05/13/2025 with worsening shortness of breath and lower extremity swelling. 1. Acute on chronic hypercapnic respiratory failure most likely due to COPD and heart failure exacerbation ? Admit under inpatient status to PCU. Suspect multifactorial due to acute on chronic HFpEF and untreated ROXY as below. ABG on admit with pH 7.36 but pCO2 92. Patient on 3.5 L at rest and 6 L on exertion at baseline. CTA chest showed no PE and no pleural effusions with mild vascular congestion, severe centrilobular emphysematous changes. Patient improved on the BiPAP, did not require intubation. 05/14: Still on high flow oxygen, 10 L, respiratory rate 20/min. Continue BiPAP during naps and at night and as needed for respiratory fatigue. Patient is being managed on scheduled bronchodilator, IV Solu-Medrol, Mucinex, incentive spirometry and Pep. Atypical chest pain described as pulmonary related, 2 serial troponins are negative. ACS ruled out. Respiratory panel negative. 05/15: Patient is doing better than yesterday with better ventilation and oxygenation. 05/16: Patient is gradually improving but she still needs 4 to 6 L of high flow oxygen therefore probably 1 more day. field operations farm manager for discharge planning. 05/17: She is on baseline of oxygen 4 to 6 L at home. She has been discharged to rehab. Tapering dose of prednisone given. She has inhaler/DuoNebnebulization, Mucinex. Continue incentive spirometry and PEP for 1 week 2. Acute on chronic HFpEF with moderate pulmonary hypertension, mild valvular heart disease ? Mild vascular congestion on chest imaging and +1-2 lower extremity pitting edema on exam noted. BNP 2554, though notably BNP was 2566 on 05/07. However, patient was on Lasix 60 mg twice daily without much improvement. IV Lasix 40 mg twice daily for now, monitor daily BMP and urine output. Continue home dapagliflozin. Recent echo 02/19/2025 Interpretation Summary Borderline LV systolic function. Estimated LVEF 45-50%. Moderate global right ventricular systolic dysfunction. There is mild biatrial dilatation. Moderate (2+) eccentric mitral valve insufficiency. Mild tricuspid valve insufficiency. Right ventricular systolic pressure estimated to be 53 mmHg. The study was technically difficult. 05/15 continue diuresis. 05/16: Patient still has significant leg swelling 2+ edema therefore Dipak wrap bandage 05/17: Furosemide 40 mg twice daily home dose increased to 60 mg p.o. twice daily. Continue Dipak wrap bandage. 3. Class III obesity with ROXY not on home PAP therapy ? BMI 45 on admit. Complicates hospital course and care. Patient reports having sleep study done in the past but did not think she could tolerate PAP therapy and has never had a PAP machine at home. Continue PAP therapy at night and with naps while inpatient as noted above. field operations farm manager to help, set up sleep study shortly after discharge. 05/15 on BiPAP. 05/17 follow-up in pulmonary clinic. 4. Paroxysmal A-fib/flutter on Eliquis, hypertension, hyperlipidemia, history of VTE ? Follows with outpatient cardiology. In rate controlled atrial flutter with rate in the 100s on admit. EKG showed atrial flutter with rate 106 bpm. Normotensive to hypertensive in the ED. Continue home Eliquis, amiodarone, diltiazem, Lopressor and atorvastatin. 5. Alcohol abuse ? Patient reports drinking 2 alcoholic drinks daily and on chart review, she reported 2 drinks a day during recent admission at the end of March. However, daughter noted that there are days where patient will drink 4-5 alcoholic drinks. on CIWA protocol without medications for now. Monitor. 6. History of tobacco abuse ? Encouraged continued cessation. 7. Solitary pulmonary nodules: Unchanged solid nodule in the right upper lobe measuring 1.2 x 0.4 cm, RUL measuring 3 mm. Also shows extensive centrilobular and paraseptal emphysema. Biapical scarring. Linear consolidation at posterior lung bases, right greater than left DVT prophylaxis: Not indicated, on Eliquis 5 mg twice daily. CODE STATUS: Full code, verified Discharge medication reconciliation done. Discharge follow-up instructions completed. Discharge process discussed with the patient and all questions were answered to patient's satisfaction. Follow with PCP in 1 to 2 weeks Total time spent, exact 35 minutes on discharge meds reconciliation, examination, coordination of care with nurses and ancillary staff, review of imaging and blood test and discussion with the patient on follow-up instructions. Clinical Impression(s) from Imaging Studies Chest CTA 05/13/25 13:49 IMPRESSION: 1. Markedly limited exam, without evidence of central pulmonary embolism. Consider repeating this exam if there is persistent concern for a more distal embolism. 2. Similar appearance of the lungs compared to CT on 02/20/2025, to include solid pulmonary nodules measuring up to 1.2 cm in size. Recommend repeat CT in 6-12 months, and Pulmonology referral if not already performed. 3. Multiple hypodense lesions in the spleen measuring up to 2.[address] abdomen and pelvis for further evaluation, particularly if the patient has a history of malignancy or associated symptoms. Reading Location: [facility] Medications at Discharge Home Medications Oxygen, Home [Home Oxygen] 2 - 4 lpm QHS sob/copd 11/13/17 albuterol sulfate 90 mcg/actuation breath activated powder inhaler 2 inh inhalation Q6H PRN shortness of breath 02/19/25 fluticasone fur. 200 mcg-umeclid 62.5 mcg-vilant 25 mcg inhalat.powder (Trelegy Ellipta) 1 ea inhalation DAILY sob 02/19/25 ipratropium 0.5 mg-albuterol 3 mg (2.5 mg base)/3 mL nebulization soln 3 ml inhalation Q6H PRN shortness of breath 02/19/25 multivitamin (Daily Multi-Vitamin tablet) 1 tab PO DAILY supplement 02/19/25 sodium chloride 0.65 % nasal spray aerosol (Davis Saline) 1 spray intranasal BID PRN dry nasal passages 02/19/25 ascorbic acid (vitamin C) 500 mg capsule 500 mg PO DAILY PRN supplement 03/30/25 cinnamon bark 500 mg capsule (Cinnamon) 500 mg PO QDAY supplement 03/30/25 mecobalamin (vitamin B12) 1,000 mcg chewable tablet 1,000 mcg PO QDAY supplement 03/30/25 nystatin 100,000 unit/gram topical cream 1 applic topical BID skin rash 04/23/25 apixaban 5 mg tablet (Eliquis) 5 mg PO BID blood thinner #180 tabs 05/07/25 atorvastatin 40 mg tablet 40 mg PO QHS #90 tabs 05/07/25 dapagliflozin propanediol 10 mg tablet (Farxiga) 10 mg PO QAM #30 tabs 05/07/25 diltiazem HCl 180 mg capsule,extended release 24 hr 180 mg PO Q12 #180 caps 05/07/25 metoprolol tartrate 50 mg tablet 50 mg PO BID blood pressure #180 tabs 05/07/25 potassium chloride 20 mEq tablet,extended release(part/cryst) (Klor-Con M) 20 meq PO BID supplement #180 tabs 05/07/25 amiodarone 200 mg tablet 200 mg PO DAILY Afib 05/13/25 furosemide 40 mg tablet 60 mg (1.5 x 40 mg) PO BID diuretic #180 tabs 05/17/25 guaifenesin 1,200 mg tablet, extended release 12 hr (Mucus Relief ER) 1,200 mg PO BID cough 7 days #0 tabs 05/17/25 prednisone 10 mg tablet 10 mg PO DAILY #30 tabs 05/17/25 Physical Exam Narrative Seen and examined. No acute issues. Patient is doing well on baseline oxygen. Her breathing is better but she is still on 4 to 6 L of high flow oxygen. Using BiPAP at night. Patient admitted with extreme shortness of breath and felt mild sharp chest pain/stabbing in sensation. She has chronic cough with mild increase in severity. No fever. No dysuria. Physical exam General: Alert, Oriented x3, Cooperative. BMI 45.0 kg/m? HEENT: Atraumatic, PERRLA, EOMI, Normocephalic. Oral: No Gingival or Mucosal Lesions/ Ulcerations Neck: Supple, No JVD, Negative Carotid Bruits Chest wall/Lungs: Air entry mild diminished diffusely. Lungs are clear. Cardiovascular: Regular rate and rhythm, Normal S1,S2, No M/G/R Abdomen: Bowel Sounds Present, Soft, Non Tender, Non-Distended : No dysuria. No renal angle tenderness. No suprapubic tenderness. Extremities: Bilateral 2+ pitting edema, Capillary Refill Less than 3 Seconds Skin: No rashes, No breakdown Musculoskeletal: No Tenderness to Palpation of Joints or Extremities Neurological: Cranial nerves II-XII grossly intact, DTR 2+/4. No acute focal neurological deficit. Psych/Mental Status: Flat affect. Weight / BMI Weight Weight: 262 lb 2.991 oz Body Mass Index (BMI) 45.0 ABG / Lab / Microbiology Data 05/16/25 04:07 05/16/25 04:07 D/C Instructions Weight Bearing Status: Weight bearing as tolerated Call your doctor if you observe: Fever of 101 or Higher, Coldness, Increased Pain, Numbness or Tingling, Change in Color, Inability to urinate, Inability to have a bowel movement, Shortness of breath, Dizziness, Fainting spells, Swelling in the ankles, Chest pain, Prolonged hiccupping, Increased palpitations (irregular heartbeat) and Calf discomfort DC O2, CPAP, BIPAP Needs Home O2 Discharge instructions: Yes Type of respiratory needs?: Oxygen Oxygen frequency: Continuous Continuous oxygen liters per minute: 6 DC home with Oxygen: Yes Home O2 MD Review: I have reviewed the oxygen testing, and the patient qualifies for home oxygen equipment and portability. The patient is mobile in the home and the community. 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 chronically advised to follow-up in 1 to 2 weeks and get PFT and sleep study Discharge Orders/Prescriptions Prescriptions: New prednisone 10 mg tablet 10 mg PO DAILY Qty: 30 0RF Rx Instructions: 40 mg for 3 days 30 mg for 3 days, 20 mg for 3 days,and 10 mg for 3 days Continued cinnamon bark [Cinnamon] 500 mg capsule 500 mg PO QDAY mecobalamin (vitamin B12) 1,000 mcg tablet,chewable 1,000 mcg PO QDAY dapagliflozin propanediol [Farxiga] 10 mg tablet 10 mg PO QAM Qty: 30 11RF Eliquis 5 mg tablet 5 mg PO BID Qty: 180 3RF metoprolol tartrate 50 mg tablet 50 mg PO BID Qty: 180 3RF potassium chloride [Klor-Con M20] 20 mEq tablet,ER particles/crystals 20 meq PO BID Qty: 180 3RF diltiazem HCl 180 mg capsule,extended release 24hr 180 mg PO Q12 Qty: 180 3RF atorvastatin 40 mg tablet 40 mg PO QHS Qty: 90 3RF Oxygen, Home [Home Oxygen] 2 - 4 lpm NASAL QHS ascorbic acid (vitamin C) 500 mg capsule 500 mg PO DAILY PRN (Reason: supplement) Patient Comments: only takes in winter albuterol sulfate 90 mcg/actuation aerosol powdr breath activated 2 inh inhalation Q6H PRN (Reason: shortness of breath) Trelegy Ellipta 200-62.5-25 mcg blister with device 1 ea inhalation DAILY ipratropium-albuterol 0.5 mg-3 mg(2.5 mg base)/3 mL solution for nebulization 3 ml inhalation Q6H PRN (Reason: shortness of breath) multivitamin [Daily Multi-Vitamin] Tablet 1 tab PO DAILY [place] Saline 0.65 % aerosol,spray 1 spray intranasal BID PRN (Reason: dry nasal passages) nystatin 100,000 unit/gram cream 1 applic topical BID amiodarone 200 mg tablet 200 mg PO DAILY Changed furosemide 40 mg tablet 60 mg PO BID Qty: 180 3RF guaifenesin [Mucus Relief ER] 1,200 MG tablet 1,200 mg PO BID 7 Days Qty: 0 0RF Referrals / Follow Up: Phuc Martines DO [Primary Care Provider] - Disposition Disposition (needs filled in before D/C Order can be placed): [facility] Charges/Coding Visit Charges Inpatient E&M: 72626 Disch Hosp >30min
--- NOTE | 2025-05-17 11:40 | PHA.DC.MR.R ---
Pharmacy MS Med Reconciliation Pharmacy Service has performed discharge medication reconciliation for this patient. The patient's discharge medication list was reviewed for discrepancies and discrepancies were resolved. Medications at Discharge Home Medications Oxygen, Home [Home Oxygen] 2 - 4 lpm QHS sob/copd 11/13/17 albuterol sulfate 90 mcg/actuation breath activated powder inhaler 2 inh inhalation Q6H PRN shortness of breath 02/19/25 fluticasone fur. 200 mcg-umeclid 62.5 mcg-vilant 25 mcg inhalat.powder (Trelegy Ellipta) 1 ea inhalation DAILY sob 02/19/25 ipratropium 0.5 mg-albuterol 3 mg (2.5 mg base)/3 mL nebulization soln 3 ml inhalation Q6H PRN shortness of breath 02/19/25 multivitamin (Daily Multi-Vitamin tablet) 1 tab PO DAILY supplement 02/19/25 sodium chloride 0.65 % nasal spray aerosol ([place] Saline) 1 spray intranasal BID PRN dry nasal passages 02/19/25 ascorbic acid (vitamin C) 500 mg capsule 500 mg PO DAILY PRN supplement 03/30/25 cinnamon bark 500 mg capsule (Cinnamon) 500 mg PO QDAY supplement 03/30/25 mecobalamin (vitamin B12) 1,000 mcg chewable tablet 1,000 mcg PO QDAY supplement 03/30/25 nystatin 100,000 unit/gram topical cream 1 applic topical BID skin rash 04/23/25 apixaban 5 mg tablet (Eliquis) 5 mg PO BID blood thinner #180 tabs 05/07/25 atorvastatin 40 mg tablet 40 mg PO QHS cholesterol #90 tabs 05/07/25 dapagliflozin propanediol 10 mg tablet (Farxiga) 10 mg PO QAM diabetes #30 tabs 05/07/25 diltiazem HCl 180 mg capsule,extended release 24 hr 180 mg PO Q12 heart rate #180 caps 05/07/25 metoprolol tartrate 50 mg tablet 50 mg PO BID blood pressure #180 tabs 05/07/25 potassium chloride 20 mEq tablet,extended release(part/cryst) (Klor-Con M) 20 meq PO BID supplement #180 tabs 05/07/25 amiodarone 200 mg tablet 200 mg PO DAILY Afib 05/13/25 furosemide 40 mg tablet 60 mg (1.5 x 40 mg) PO BID diuretic #180 tabs 05/17/25 guaifenesin 1,200 mg tablet, extended release 12 hr (Mucus Relief ER) 1,200 mg PO BID cough 7 days #0 tabs 05/17/25 prednisone 10 mg tablet 10 mg PO DAILY #30 tabs 05/17/25
--- NOTE | 2025-05-17 11:51 | CASEMGMT ---
Discharge Planning Discharge orders, signed med list, Bipap orders, and signed med list sent to [facility]. Physicians will transport pt by wheelchair at 12:30p. Nursing, SW, and pt updated. Unable to leave a vm for pts daughter (Lizbet) d/t mailbox being full. Christy Moran DC Planning Asst.
--- NOTE | 2025-05-17 13:12 | NURSING ---
Report called to Karla Daly, all questions answered
== END 2025-05-17 12:57 | disposition skilled nursing facility (03) | DRG 189 ==
LOC: ED 17:58 → PCU 19:36
PROVIDERS: Physician Assistant; Admitting Provider Hospitalist; Emergency Provider Emergency Medicine; PCP Student in an Organized Health Care Education/Training Program; Visit Provider Internal Medicine
DX: J96.22 Acute and chronic respiratory failure with hypercapnia (principal); I50.33 Acute on chronic diastolic (congestive) heart failure; Z68.42 Body mass index [BMI] 45.0-49.9, adult; I27.20 Pulmonary hypertension, unspecified; D73.89 Other diseases of spleen; J43.2 Centrilobular emphysema; I11.0 Hypertensive heart disease with heart failure; I34.0 Nonrheumatic mitral (valve) insufficiency; F10.10 Alcohol abuse, uncomplicated; I48.0 Paroxysmal atrial fibrillation; J96.21 Acute and chronic respiratory failure with hypoxia; G47.33 Obstructive sleep apnea (adult) (pediatric); E87.8 Other disorders of electrolyte and fluid balance, not elsewhere classified; E78.5 Hyperlipidemia, unspecified; R07.89 Other chest pain; R91.1 Solitary pulmonary nodule; E66.813 Obesity, class 3; Z99.81 Dependence on supplemental oxygen; Z79.01 Long term (current) use of anticoagulants; Z79.51 Long term (current) use of inhaled steroids; Z79.899 Other long term (current) drug therapy; Z87.891 Personal history of nicotine dependence
CPT/HCPCS: 36415; 36600; 71275; 80048; 80053; 82803; 83880; 84484; 85025; 85027; 93005; 94002; 94003; 94640; 94668; 94762; 97162; 97166; 97802; 99285; Q9967; A4216; J1938

== ENCOUNTER 2025-06-24 10:36 | Day surgery (SDC) | payer MEDICARE, BC, SELFPAY ==
[2025-06-22 13:23] LABS: Anion Gap 12 (5-15); BUN 15 mg/dL (4-19); BUN/Creat Ratio 21.0 RATIO (10-20); Calcium,Total 9.8 mg/dL (7.6-11.0); Carbon Dioxide 34.1 mmol/L (21.0-32.0); Chloride 101 mmol/L (98-108); Glucose 106 mg/dL (70-99); Potassium 3.8 mmol/L (3.3-5.1)
[2025-06-23 08:03] VITALS: BMI 43.7
--- NOTE | 2025-06-24 12:37 | CARDIOVERS ---
Cardioversion Cardioversion: Patient is a 69-year-old white female with paroxysmal atrial flutter/fibrillation. Patient been evaluated by the EP service and was felt not to be a candidate for RF ablation due to her significant pulmonary insufficiency and obesity. She is on home oxygen therapy at 3 L/min. And when the patient is ambulatory she has to increase it to 6 L/min. The patient was evaluated in our office June 08 and subsequently was brought to the [facility] recovery area for direct-current cardioversion. Patient carries a history of being loaded with amiodarone for 1 month and she has been on uninterrupted Eliquis for 6 to 8 weeks. The patient is ECG shows atrial flutter with a controlled ventricular response. The QT interval was measured by the machine is prolonged but this is inaccurate due to the flutter waves. The patient received anesthesia by Dr. Yonathan Nelson 60 mg of IV propofol once the patient was documented to be appropriately sedated a single 200 J synchronized shock was delivered. The patient converted to his normal sinus rhythm with a heart rate of 76 bpm. There were no significant ST or T wave changes and her QT interval measured is normal. The patient awoke from the procedure there were no obvious neurologic deficits. The patient will follow-up in the office with an ECG in 1 week. The plan is to continue the patient's and at 200 mg daily for another month. If she remains in sinus rhythm we will decrease the dose to 100 mg daily in anticipation of discontinuing it at 6 months. Should the patient revert to atrial fibrillation we would treat her with rate control and long-term oral anticoagulation. She has an elevated [id number] score and will need to be maintained on long-term oral anticoagulation. Patient will have the ECG done in 1 week, follow-up with advanced practitioner in 3 to 4 weeks, and see Dr. Elena at 6 months. This was discussed in detail with the patient and her daughter. Procedures Coronary Therapeutic CF Procedures [id number]: [id number] Cardioversion electric ext
--- NOTE | 2025-06-24 12:40 | PCM.OP.PRO2 ---
Procedures Pulmonary Pulmonary Procedures /Diagnostic Testin Con Sedation Non-invasive Procedural Procedure Information Date of Procedure: 06/24/25 Description of procedure: CONSCIOUS SEDATION REPORT DATE OF SERVICE: June 24, 2025 BRIEF HISTORY OF PRESENT ILLNESS: The patient is a 69-year-old female who presented to [facility] to undergo an elective outpatient cardioversion due to underlying atrial flutter/fibrillation. The patient has never previously undergone a cardioversion. She denied any prior anesthetic complications. The patient does have a known tobacco abuse history, currently in remission, along with COPD and chronic hypoxemic respiratory failure with a baseline oxygen requirement of 3 L/min at rest and 6 L/min with exertion. She is currently followed by Dr. Diana Nelson at [facility]. In addition to the aforementioned, the patient utilizes a noninvasive ventilator on a nightly basis. The patient is systemically anticoagulated on Eliquis. Her last surface echocardiogram demonstrated an ejection fraction of 45 to 50%. PHYSICAL EXAMINATION: VITAL SIGNS: Reviewed and were acceptable. GENERAL: The patient is an obese female, in no apparent distress, speaking in full sentences. HEENT: Normocephalic, atraumatic. Mucous membranes are moist and pink. Good mouth opening noted. Trachea is midline. Good neck mobility. CHEST: S1, S2 irregularly irregular. No murmurs, rubs or gallops were noted. LUNGS: Clear to auscultation bilaterally without appreciable wheezes, rales or rhonchi. ABDOMEN: Soft, nontender, nondistended. Positive bowel sounds. EXTREMITIES: There is no clubbing or cyanosis. Lower extremity edema is present. ASA Class: II DESCRIPTION OF PROCEDURE: After confirmation of informed consent, the patient's anesthesia plan was reviewed in detail. Propofol was chosen. Risks and benefits were reviewed and the patient agreed to proceed. At 1218, the patient was given 60 mg of propofol. The patient achieved an appropriate level of sedation and was given a 200 joule synchronized cardioversion by Dr. Elena at the bedside. This was successful in achieving normal sinus rhythm. The patient was monitored until 1234, at which time she reached her baseline mental status and function. The patient tolerated the procedure well. COMPLICATIONS: None ESTIMATED BLOOD LOSS: None RECOMMENDATIONS: Okay to recover in usual fashion.
== END 2025-06-24 13:15 | disposition home or self-care (01) ==
PROVIDERS: PCP Student in an Organized Health Care Education/Training Program; Referring Provider Internal Medicine Cardiovascular Disease; Visit Provider Internal Medicine Cardiovascular Disease
DX: I48.91 Unspecified atrial fibrillation (principal); J96.11 Chronic respiratory failure with hypoxia; J44.9 Chronic obstructive pulmonary disease, unspecified; I48.3 Typical atrial flutter; E66.01 Morbid (severe) obesity due to excess calories; Z68.41 Body mass index [BMI] 40.0-44.9, adult; I10 Essential (primary) hypertension; Z99.81 Dependence on supplemental oxygen; Z79.01 Long term (current) use of anticoagulants; Z79.51 Long term (current) use of inhaled steroids; Z79.899 Other long term (current) drug therapy; Z87.891 Personal history of nicotine dependence
CPT/HCPCS: 36415; 80048; 92960; 93005

== ENCOUNTER → 2025-08-19 | Outpatient (CLI) | payer MEDICARE, BC, SELFPAY ==
--- OUTSIDE RECORDS SUMMARY | 2025-08-19 06:25 | XMS RPT_ITS | CCD ---
Author Organization [facility] ion [facility] Care Team Providers Care Geophysical Manager Name Role Phone MARGOT GALVAN Unavailable Unavailable MARGOT GALVAN Unavailable Unavailable MARGOT GALVAN Unavailable Unavailable Phuc Martines DO Primary Care Provider Phuc Martines DO Primary Care Provider Phuc Martines DO Primary Care Provider Phuc Martines DO Primary Care Provider Hodan Christine PA-C Unavailable Phuc Martines DO Primary Care Provider Ad CHILD CARE CENTER ASSISTANT DIRECTOR.Vicky GAN Unavailable Fernando CHILD CARE CENTER ASSISTANT DIRECTOR.Pratibha GAN Unavailable Dr. Phuc Martines DO Primary [...] Dr. Phuc Martines DO Referring Provider Dr. Reza Elena MD Attending Provider Meena CHILD CARE CENTER ASSISTANT DIRECTOR.PRACTICE NURSE, Tyra Lozano Unavailable Madan ARELLANO, Dr. Williamson Emergency Provider Martinez ARELLANO, Dr. Virginia Ceron Admit Provider Martinez ARELLANO, Dr. Virginia Ceron Attending Provider Martinez ARELLANO, Dr. Virginia Ceron Other Provider Collin ARELLANO, Dr. Vazquez Attending Provider Collin ARELLANO, Dr. Vazquez Other Provider Albert TELEPHONY ENGINEER-CKim Attending Provider Albert TELEPHONY ENGINEER-CKim Referring Provider Dr. Nicko Vallejo DO Admit Provider Dr. Nicko Vallejo DO Attending Provider Phuc Martines Primary Care Provider JADEN NEWTON Attending Unavailable REZA ELENA Referring Unavailable PHUC MARTINES Primary Care Unavailable Dr. Nicko Vallejo DO Admit Provider Dr. Nicko Vallejo DO Other Provider Anne Marie Gonzalez MA Unavailable Dr. Phuc Martines DO Primary Care Provider [phone] Dr. Linwood Ivy DO Emergency Provider Dr. Reza Elena MD Referring Provider Dr. Reza Elena MD Other Provider Dr. Yonathan Gonzalez DO Attending Provider PHUC MARTINES DO Consulting Unavailable AMICONE, RAYA CHILD CARE CENTER ASSISTANT DIRECTOR Admitting Unavailable AMICONE, RAYA CHILD CARE CENTER ASSISTANT DIRECTOR Primary Care Unavailable AMICONE, RAYA CHILD CARE CENTER ASSISTANT DIRECTOR Attending Unavailable PROVIDER, UNKNOWN Consulting Unavailable OSVALDO BAEZ MD Admitting Unavailable OSVALDO BAEZ MD Primary Care Unavailable OSVALDO BAEZ MD Attending Unavailable Dr. Phuc Martines DO Primary Care Physician Madan ARELLANO, Dr. Williamson Emergency Department Physici an Martinez ARELLANO, Dr. Virginia Ceron Admitting Physician Martinez ARELLANO, Dr. Virginia Ceron Nurse Practitioner Collin ARELLANO, Dr. Vazquez Attending Physician Collin ARELLANO, Dr. Vazquez Nurse Practitioner Kim Arellano Attending Physician Conrad MAK, Dr. Friend Referring Provider Biju MAK, Dr. Palumbo Emergency Department Physic tracy Genevieve MAK, Dr. Maharaj Admitting Physician Genevieve MAK, Dr. Maharaj Nurse Practitioner Ulices ARELLANO, Dr. Adams Attending Physician [phone] Ulices ARELLANO, Dr. Adams Nurse Practitioner Omar MAK, Dr. Mcmanus Attending Physician Irina Oliver Attending Physician [phone] Virginia Henriquez Consulting Unavailable Virginia Henriquez Admitting Unavailable Martines, Phuc Primary Care Unavailable Collin, George Attending Unavailable Collin, George Consulting Unavailable Reza Elena Consulting Unavailable Reza Elena Referring Unavailable Reza Elena Attending Unavailable Martines, Phuc Primary Care Unavailable Reza Elena Attending Unavailable Martines, Phuc Primary Care Unavailable Martines, Phuc Referring Unavailable Reza Elena Attending Unavailable Martines, Phuc Primary Care Unavailable Martines, Phuc Referring Unavailable Kim Price Referring Unavailable Kim Price Attending Unavailable Martines, Phuc Primary Care Unavailable Nicko Vallejo Consulting Unavailable Nicko Vallejo Admitting Unavailable Collin, George Attending Unavailable Martines, Phuc Primary Care Unavailable Collin, George Consulting Unavailable Kym Norton Attending Unavailable Kym Norton Consulting Unavailable Kym Norton Admitting Unavailable Martines, Phuc Primary Care Unavailable Kim Price Attending Unavailable Martines, Phuc Primary Care Unavailable Martines, Phuc Referring Unavailable Claudia Valerio Attending Unavailable Claudia Valerio Consulting Unavailable Irina Oliver Referring Unavail able Irina Oliver Attending Unavail able Martines, Phuc Primary Care Unavailable Irina Oliver Attending Unavail able Martines, Phuc Referring Unavailable Martines, Phuc Primary Care Unavailable Martines, Phuc Referring Unavailable Reza Elena Attending Unavailable Martines, Phuc Primary Care Unavailable Virginia Henriquez Attending Unavailable Reza Elena Attending Unavailable Reza Elena Referring Unavailable Martines, Phuc Primary Care Unavailable Nicko Vallejo Consulting Unavailable Collin, George Attending Unavailable Nicko Vallejo Admitting Unavailable Martines, Phuc Primary Care Unavailable WhiteVirginia L Consulting Unavailable White Virginia L Admitting Unavailable Collin, George Attending Unavailable Martines, Phuc Primary Care Unavailable Kym Norton Consulting Unavailable Kym Norton Admitting Unavailable Koram, Yee Bernice Attending Unavailable Martines, Phuc Primary Care Unavailable Claudia Valerio Consulting Unavailable Nicko Vallejo Attending Unavailable Robert, Yee Queen Attending Unavailable Robert, Yee Queen Consulting Unavailable Reza Elena Consulting Unavailable Reza Elena Referring Unavailable Yonathan Gonzalez Attending Unavailable Martines, Phuc Primary Care Unavailable Mercy Purvis Attending Unavailable Martines, Phuc Primary Care Unavailable MARTINES, PHUC L Primary Care Unavailable RAJENDRA GOODMAN Attending Unavailable MARTINES, PHUC L Primary Care Unavailable MARTINES, PHUC L Referring Unavailable MARTINES, PHUC L Primary Care Unavailable HARPSTER, MARICRUZ Referring Unavailable MARTINES, PHUC L Primary Care Unavailable HARPSTER, MARICRUZ Referring Unavailable HARPSTER, MARICRUZ Attending Unavailable MARTINES, PHUC L Primary Care Unavailable JANETTE DAMON Attending Unavailable MARTINES, PHUC L Primary Care Unavailable MARTINES, PHUC L Referring Unavailable YAJAIRA ROBERSON Attending Unavailable MARTINES, PHUC L Primary Care Unavailable MARTINES, PHUC L Referring Unavailable MARTINES, PHUC L Primary Care Unavailable MARTINES, PHUC L Attending Unavailable MARTINES, PHUC L Primary Care Unavailable SOFI GARCIA Referring Unavailable MARTINES, PHUC L Primary Care Unavailable RAJENDRA GOODMAN Attending Unavailable MARTINES, PHUC L Primary Care Unavailable MARTINES, PHUC L Attending Unavailable MARTINES, PHUC L Primary Care Unavailable SOFI GARCIA Attending Unavailable MARTINES, PHUC L Primary Care Unavailable HARPSTER, MARICRUZ Referring Unavailable MARTINES, PHUC L Primary Care Unavailable HARPSTER, MARICRUZ Referring Unavailable HARPSTER, MARICRUZ Attending Unavailable DAMON EUGENE Attending Unavailable MARTINES, PHUC L Primary Care Unavailable MARTINES, PHUC L Primary Care Unavailable TYRA CARSON Attending Unavailable MARTINES, PHUC L Primary Care Unavailable MARICRUZ CAMP Referring Unavailable BRANDYN CARRASCO Attending Unavailable CONRAD PHUC Osmany Primary Care Unavailable MARTINES PHUC Osmany Referring Unavailable MARTINES PHUC Osmany Primary Care Unavailable RAJENDRA GOODMAN Attending Unavailable MARTINES PHUC Osmany Primary Care Unavailable SOFI GARCIA Referring Unavailable MARTINES, PHUC Osmany Primary Care Unavailable MARICRUZ CAMP Referring Unavailable MARTINES PHUC L Primary Care Unavailable MARTINES, PHUC Osmany Referring Unavailable MARTINES PHUC Osmany Primary Care Unavailable RAJENDRA GOODMAN Attending Unavailable CONRAD PHUC Osmany Primary Care Unavailable JANETTE DAMON Attending Unavailable Allergies Allergy Classification Reported Allergen(s) Allergy Type Date of Onset Reaction(s) Facility (20 sources) Naproxen; Translations: [NAPROXEN] Drug Allergy 0 [facility] Work Phone: (13 sources) Ibuprofen Drug Allergy 5 [facility] (20 sources) Nitrofurantoin; Translations: [NITROFURANTOIN] Drug Allergy 5 [facility] (1 source) Ibuprofen Drug Allergy 5 [facility] (1 source) Nitrofurantoin Drug Allergy 5 [facility] Medications Current Medications Medication Drug Class(es) Dates Sig (Normalized) Sig (Original) 200 actuat albuterol 0.09 mg/actuat dry powder inhaler (20 sources) beta2-Adrenergic Agonist Start: 02-19-2025 Albuterol Sulfate 90 mcg/actuation aerosol powdr breath activated Active 2 NMA INHALATION EVERY 6 HOURS as needed for shortness of breath February 19, 2025 12:00am Complies with drug therapy Start: 12-25-2024 take 2 puff(s) by in [...] by inhalation every six hours as needed albuterol 108 (90 Base) MCG/ACT inhaler Inhale 2 puffs every 6 hours as needed. 12/25/2024 Active Start: 09-15-2020 End: 02-09-2022 take 2 puff(s) by inhalation every four hours as needed for wheezing ProAir RespiClick 90 mcg/actuation breath activated (albuterol sulfate) Indications: Chronic obstructive pulmonary disease, unspecified COPD type (HCC) Inhale 2 Puffs as instructed every 4 hours as needed for Wheezing/Shortness of Breath. 3 Each 3 09/15/2020 02/09/2022 Discontinued Start: 04-15-2017 End: 02-19-2025 Albuterol Sulfate (Proair Hf a) 1 PUFF inhaler Discontinued 2 NMA INHALATION EVERY 4 HOURS NEEDED as needed for Shortness Of Breath April 15, 2017 12:00am February 19, 2025 2:13pm Comment on above: Inhale 2 Puffs as [...] shortness of breath February 19, 2025 12:00am Complies with drug therapy Start: 04-23-2017 End: 12-04-2022 take 3 mL by inhalation four times daily ipratropium-albuterol (DUONEB) 0.5 mg-3 mg(2.5 mg base)/3 mL nebu Inhale 3 mL as instructed four times daily. Inhale via nebulizer over 5-15 minutes. 120 Each 11 12/04/2022 Active Comment on above: Inhale 3 mL as instr ucted four times daily. Inhale via nebulizer over 5-15 minutes. amiodarone hydrochloride 200 mg oral tablet (7 sources) Antiarrhythmic Start: 05-13-20 End: 11-19-19 take 1 tablet by mouth once daily Amiodarone 200 mg tablet Active 200 mg PO DAILY May 13, 2025 12:00am Afib Complies with drug therapy Start: 05-12-2025 End: 05-22-2025 take 2 tablets by mouth twice daily amiodarone (Pacerone) 200 MG tablet Take 2 tablets (400 mg) by mouth 2 times daily for 10 days. 40 tablet 05/12/2025 05/22/2025 Active amoxicillin 875 mg / clavulanate 125 mg oral tablet (1 source) Penicillin-class Antibacterial Start: 03-13-2024 End: 03-23-2024 take 1 tablet by mouth twice daily amoxicillin-clavulanate potassium (AUGMENTIN) 875-125 mg per tablet Indications: Chronic obstructive pulmonary disease, unspecified COPD type (HCC) , Acute bronchitis with chronic obstructive pulmonary disease (COPD) (HCC) (HCC) , Acute otitis media, left Take 1 tablet by mouth two times a day for 10 days. 20 tablet 0 03/13/2024 03/23/2024 Active apixaban 5 mg oral tablet (20 sources) Factor Xa Inhibitor Start: 02-23-2025 End: 05-07-2025 take 1 tablet by mouth twice daily Apixaban (Eliquis) 5 mg tablet Active 5 mg PO TWICE A DAY 180 3 May 07, 2025 2:13pm blood thinner Complies with drug therapy ascorbic acid 500 mg oral capsule (20 sources) Vitamin C Start: 11-13-2017 End: 03-30-2025 take 1 capsule by mouth once daily as needed Ascorbic Acid (Vitamin C) 500 mg capsule Active 500 mg PO DAILY as needed for supplement March 30, 2025 11:32am Complies with drug therapy take 1 capsule by mouth once jigna ly ascorbic acid (Vitamin C) 500 MG ER tablet Take 1 capsule by mouth daily. Active Ascorbic Acid / Bioflavonoids (20 sources) Vitamin C take 1 capsule by mouth once daily ASCORBIC ACID/BIOFLAVONOIDS (SIVAN C ORAL) Take 1 capsule by mouth once daily. Active take 1 capsule by mouth once jigna ly ASCORBIC ACID/BIOFLAVONOIDS (SIVAN C ORAL) Take 1 capsule by mouth once daily. 0 Active Comment on above: Take 1 capsule by mo uth once daily. atorvastatin 40 mg oral tablet (20 sources) HMG-CoA Reductase Inhibitor Start: 5 End: 5 take 1 tablet by mouth at bedtime Atorvastatin 40 mg tablet Active 40 mg PO AT BEDTIME 90 3 May 07, 2025 2:14pm cholesterol Complies with drug therapy cinnamon bark 500 mg oral capsule (20 sources) Start: 5 take 1 capsule by mouth once daily Cinnamon Bark (Cinnamon) 500 mg capsule Active 500 mg PO daily March 30, 2025 12:00am supplement Complies with drug therapy Cinnamon Bark po wder Take by mouth daily. Active cinnamon bark (C INNAMON ORAL) Take by [...] with exertion. dapagliflozin 10 mg oral tablet (19 sources) Sodium-Glucose Cotransporter 2 Inhibitor Start: 05-07-20 25 take 1 tablet by mouth once daily in the morning Dapagliflozin Propanediol (Farxiga) 10 mg tablet Active 10 mg PO EVERY MORNING 30 May 07, 2025 12:00am diabetes Complies with drug therapy 24 hr dilTIAZem hydrochloride 180 mg extended release oral capsule (20 sources) Calcium Channel Stefanie Start: 04-26-20 End: 05-07-20 take 1 capsule by mouth every twelve hours Diltiazem Hcl 180 mg capsule,extended release 24hr Active 180 mg PO EVERY 12 HOURS 180 May 07, 2025 2:14pm heart rate Complies with drug therapy doxycycline monohydrate 100 mg oral tablet (3 [...] 3 tablet 1 04/01/2024 04/04/2024 Active Fluticasone-Umeclidi n-Vilant (Trelegy Ellipta) 200-62.5-25 MCG/ACT aerosol powder (1 source) Start: 5 take 1 puff(s) by inhalation once daily Fluticasone-Umeclid in-Vilant (Trelegy Ellipta) 200-62.5-25 MCG/ACT aerosol powder Inhale 1 puff daily. 12/25/2024 Active Fluticasone-Umeclidi n-Vilanter (12 sources) Start: Fluticasone-Umeclid in-Vilanter (Trelegy Ellipta) 200-62.5-25 mcg blister with device Active 1 NMA INHALATION DAILY February 19, 2025 12:00am sob Complies with drug therapy Start: 02-19-2025 Fluticasone-Um eclidin-Vilanter (Trelegy Ellipta) 200-62.5-25 mcg blister with device Active 1 NMA INHALATION DAILY February 19, 2025 12:00am sob Start: 02-19-2025 Fluticasone-Um eclidin-Vilanter (Trelegy Ellipta) 200-62.5-25 mcg blister with device Active 1 NMA INHALATION DAILY February 19, 2025 12:00am aomjeqrktbx-mfdlsjdvo-ogtiuz er (TRELEGY ELLIPTA) 200-62.5-25 mcg inhalation powder (20 sources) Start: 12-25-2024 take 1 puff(s) by inhalation once daily ywiynmnjqss-fhdycvyjm-ltfvnjyz (TRELEGY ELLIPTA) 200-62.5-25 mcg inhalation powder Inhale 1 Puff as instructed once daily. 60 Each 11 12/25/2024 Active furosemide 20 mg oral tablet (20 sources) L o o p D i u r e t i c Start: 06-08-2025 take 1 tablet by mouth once daily as needed for edema Furosemide (Lasix) 20 mg tablet Active 20 mg PO daily as needed for edema June 08, 2025 12:00am Complies with drug therapy Start: 05-17-2025 End: 06-08-2025 Furosemide 40 mg tablet Disc ontinued 60 mg PO TWICE A DAY 180 May 17, 2025 11:11am June 08, 2025 2:50pm diuretic Start: 05-12-2025 End: 05-12-2026 take 2 tablets by mouth twice daily furosemide (Lasix) 40 MG tablet Take 2 tablets (80 mg) by mouth 2 times daily. 120 tablet 05/12/2025 05/12/2026 Active Start: 02-23-2025 End: 06-14-2025 take 1 tablet by mouth twice daily Furosemide 40 mg tablet Discontinued 40 mg PO TWICE A DAY 180 May 07, 2025 2:14pm May 17, 2025 11:11am diuretic 12 hr guaiFENesin 1200 mg extended release oral tablet (20 sources) Start: 09-28-2022 take 2 tablets by mouth twice daily guaiFENesin (MUCINEX) 600 mg 12 hr tablet Indications: COVID , Bacterial sinusitis , Chronic obstructive pulmonary disease, unspecified COPD type (HCC) Take 2 tablets by mouth twice daily. 28 tablet 1 09/28/2022 Active Start: 04-17-2017 End: 06-08-2025 take 1 tablet by mouth twice daily as needed for cough, then take 1 tablet by mouth every twelve hours as needed for cough Guaifenesin (Mucus Relief Er) 1,200 mg tablet extended release 12hr Active 1200 mg PO TWICE A DAY as needed for cough June 08, 2025 2:49pm Complies with drug therapy Start: 04-17-2017 End: 06-08-2025 take 1 tablet by mouth twice daily Guaifenesin (Mucus Relief Er) 1,200 MG tablet Discontinued 1200 mg PO TWICE A DAY 0 7 0 May 17, 2025 11:11am June 08, 2025 2:50pm cough Comment on above: Take 2 tablets by mo [facility] twice daily. mecobalamin 1 mg chewable tablet (20 sources) Start: 03-30-2025 take 1 tablet by mouth once daily Mecobalamin (Vitamin B12) 1,000 mcg tablet,chewable Active 1000 ug PO daily March 30, 2025 12:00am supplement Complies with drug therapy take 1000 ug by mouth once daily mecobalamin (B12 ACTIVE ORAL) Take 1,000 mcg by mouth once daily. Active metoprolol tartrate 50 mg oral tablet (20 sources) beta-Adrenergic Stefanie Start: 02-23-2025 End: 05-07-2025 take 1 tablet by mouth twice daily Metoprolol Tartrate 50 mg tablet Active 50 mg PO TWICE A DAY 180 May 07, 2025 2:13pm blood pressure Complies with drug therapy Multiple Vitamin (multivitamin) tablet (1 source) take 1 tablet by mouth once daily Multiple Vitamin (multivitamin) tablet Take 1 tablet by mouth daily. Active Multivitamin (Daily Multi-Vitamin) tablet (12 sources) Start: 02-19-2025 Multivitamin (Daily Multi-Vitamin) tablet Active 1 {tbl} PO DAILY February 19, 2025 12:00am supplement Complies with drug therapy Start: 02-19-2025 Multivitamin ( Daily Multi-Vitamin) tablet [...] times a day for 10 days. nystatin 341335 unt/ml topical cream (20 sources) Polyene Antifungal Start: 04-23-2025 End: 06-08-2025 Nystatin 100,000 unit/gram cream Active 1 NMA TOPICAL TWICE A DAY as needed for skin rash June 08, 2025 2:50pm Complies with drug therapy Start: 04-20-2025 End: 05-04-2025 nystatin (MYCOSTATIN) cream [...] 05/01/2022 Discontinued Start: 04-17-2017 End: 02-19-2025 take [id number] [IU] by mouth four times daily Nystatin 500,000 UNIT/5 ML suspension Discontinued [id number] U PO 4 TIMES DAILY 1 0 April 17, 2017 12:00am February 19, 2025 2:18pm 1 week supply Comment on above: Apply 1 application to affected area four times daily. Oxygen, Home (Home Oxygen) (12 sources) Start: 11-13-2017 Oxygen, Home (Home Oxygen) Active 2 - 4 LPM NASAL AT BEDTIME November 13, 2017 1:00am sob/copd Complies with drug therapy Start: 11-13-2017 Oxygen, Home ( Home Oxygen) [...] chloride 20 meq extended release oral tablet (20 sources) Start: 2024 End: 2024 Potassium Chloride (Klor-Con M20) 20 mEq tablet,ER particles/crystals Active 20 meq PO TWICE A DAY 180 3 May 07, 2025 2:13pm supplement Complies with drug therapy roflumilast 0.25 mg oral tablet (8 sources) Phosphodiesterase 4 Inhibitor Start: 2024 take 1 tablet by mouth once daily roflumilast (DALIRESP) 250 mcg tablet Indications: Stage 3 severe COPD by GOLD classification ([facility]) Take 1 tablet by mouth once daily. 30 tablet 5 06/04/2025 Active sodium chloride 0.111 meq/ml nasal spray (20 sources) Start: 2024 Sodium Chloride ([place] Saline) 0.65 % aerosol,spray Active 1 NMA INTRANASAL TWICE A DAY as needed for dry nasal passages February 19, 2025 12:00am Complies with drug therapy Start: 02-09-2022 End: 05-11-2023 sodium chloride 0.9 % (flush ) 10 mL (BD POSIFLUSH) vitamin b12 1 mg oral tablet (1 source) Vitamin B12 take 1 tablet by mouth once daily cyanocobalamin (Vitamin B-12) 1000 MCG tablet Take 1,000 mcg by mouth daily. Active Completed/Discontinued Medications Medication Drug Class(es) Dates Sig (Normalized) Sig (Original) Albuterol Sulfate (Proair Hfa) 1 PUFF inhaler (11 sources) Start: 04-15-2017 End: 02-19-2025 Albuterol Sulfate [...] vikash th once daily. Beclomethasone Diprop Inhaler (12 sources) Corticosteroid Start: 017 End: take 1 [...] on above: Take 1 capsule by mo [facility] three times daily as needed for cough. cephalexin 500 mg oral capsule (13 sources) Cephalosporin Antibacterial Start: 05-06-2024 End: 02-19-2025 [...] on above: Take 1 capsule by mo [facility] three times a day for 7 days. 30 actuat fluticasone furoate 0.1 mg/actuat / umeclidinium 0.0625 mg/actuat / vilanterol 0.025 mg/actuat dry powder inhaler (20 sources) Anticholinergic, Corticosteroid, beta2-Adrenergic Agonist Start: 12-03-2023 End: 12-25-2024 eosqkdbotvo-mcmqsekdc-wvr anter (TRELEGY ELLIPTA) 100-62.5-25 mcg inhalation powder Indications: Chronic obstructive pulmonary disease, unspecified COPD type (HCC) USE 1 INHALATION DAILY INSTRUCTED 3 Each 3 11/27/2024 12/25/2024 Discontinued (Course of therapy completed) Start: 12-06-2021 End: 12-04-2022 xrcxaaomkrp-uvqxoylqz-hamdwp er (TRELEGY ELLIPTA) 100-62.5-25 mcg inhalation powder [...] Comment on above: Take 1 capsule by [facility] once daily. ipratropium bromide 0.2 mg/ml inhalation [...] over 5-15minutes. levoFLOXacin 500 mg oral tablet (12 sources) Quinolone Antimicrobial Start: 017 End: take 1 tablet by mouth once daily Levofloxacin 500 MG tablet Discontinued 500 mg PO DAILY April 17, 2017 12:00am February 19, 2025 2:18pm Multivitamin (Daily Multiple) 1 EACH tablet (12 sources) Start: 017 End: take 1 tablet by mouth once daily Multivitamin (Daily Multiple) 1 EACH tablet Discontinued 1 NMA PO DAILY April 15, 2017 12:00am February 19, 2025 2:17pm nitrofurantoin, macrocrystals 25 mg / nitrofurantoin, monohydrate 75 mg oral capsule (13 sources) Nitrofuran Antibacterial Start: End: take 1 capsule by mouth twice daily Nitrofurantoin Monohyd/M-Cryst 100 mg capsule Discontinued 1 NMA PO TWICE A DAY April 23, 2025 12:00am April 26, 2025 9:23am uti perflutren lipid microspheres 1.3 mL in NaCl (PF) 0.9% 10 mL injection (DEFINITY) (20 sources) Start: 022 End: perflutren lipid microspheres 1.3 mL in NaCl (PF) 0.9% 10 mL injection (DEFINITY) predniSONE 10 mg oral tablet (19 sources) Start: 025 End: Prednisone 10 mg tablet Discontinued 10 mg PO DAILY 30 0 May 17, 2025 12:00am June 08, 2025 2:50pm 40 mg for 3 days 30 mg for 3 days, 20 mg for 3 days,and 10 mg for 3 days Start: 04-17-2017 End: 02-19-2025 Prednisone 10 MG tablets,dos e pack Discontinued 10 mg PO DAILY 30 [...] daily for 3 days with food. Salmeterol (12 sources) beta2-Adrenergic Agonist Start: End: take 1 puff(s) by inhalation every twelve hours Salmeterol (Serevent Diskus) 1 PUFF inhaler Discontinued 1 NMA INHALATION EVERY 12 HOURS April 15, 2017 12:00am February 19, 2025 2:18pm tiotropium 0.018 mg inhalation powder (1 source) Anticholinergic Start: End: take 1 puff(s) by inhalation once daily Tiotropium Mutual (Spiriva With Handihaler) 1 PUFF inhaler Discontinued 1 NMA INHALATION DAILY April 15, 2017 12:00am February 19, 2025 2:18pm Tiotropium Mutual (Spiriva With Handihaler) 1 PUFF inhaler (11 sources) Start: End: take 1 puff(s) by inhalation once daily Tiotropium Mutual (Spiriva With Handihaler) 1 PUFF inhaler Discontinued [...] Problems Problem Classification Problem Date Documented Da melodie Episodic/Chronic Alcohol-related disorders (20 sources) Alcohol abuse; Translations: [Alcohol abuse, uncomplicated] Onset: 04-06-2025 03-24-2025 Chronic Comment on above: 4 shots a day Aortic; peripheral; and visceral artery aneurysms (20 sources) Ectasia of thoracic aorta; Translations: [Thoracic aortic ectasia] Onset: 03-13-2024 03-13-2024 Chronic Benign neoplasm of uterus (20 sources) Uterine leiomyoma; Translations: [Leiomyoma of uterus, unspecified] 05-13-2009 Episodic Cardiac dysrhythmias (20 sources) Atrial flutter; Translations: [Unspecified atrial flutter] Onset: 03-01-2025 02-19-2025 Chronic Cardiac dysrhythmias (9 sources) Cardiac dysrhythmias Chronic obstructive pulmonary disease and bronchiectasis (20 sources) Chronic obstructive pulmonary disease, unspecified; Translations: [Chronic obstructive lung disease] Onset: 02-03-2010 Resolved: 10-13-2019 Chronic Chronic obstructive pulmonary disease and bronchiectasis (9 sources) Chronic obstructive pulmonary disease and bronchiectasis Congestive heart failure; nonhypertensive (18 sources) Congestive heart failure; Translations: [Heart failure, unspecified] Onset: 03-01-2025 03-01-2025 Chronic Coronary atherosclerosis and other heart disease (1 source) Atherosclerotic heart disease of [place] coronary artery without angina pectoris; Translations: [Coronary artery calcification seen on CAT scan] Onset: 07-29-2025 Chronic Diabetes mellitus without complication (20 sources) Impaired fasting glycemia; Translations: [Impaired fasting glucose] Onset: 11-06-2017 Episodic Disorders of lipid metabolism (20 sources) Dyslipidemia; Translations: [Hyperlipidemia, unspecified] Onset: 01-30-2022 Chronic Essential hypertension (20 sources) Essential (primary) hypertension; Translations: [Essential hypertension] Onset: 07-07-2008 Resolved: 07-07-2008 Chronic Fluid and electrolyte disorders (1 source) Hypokalemia; Translations: [Hypokalemia] Onset: 07-23-2025 Episodic Gout and other crystal arthropathies (1 source) Gouty arthritis of toe; Translations: [Gout, unspecified] 01-10-2021 Chronic Hypertension with complications and secondary hypertension (1 source) Hypertensive heart disease with heart failure; Translations: [Hypertensive heart disease with heart failure] Onset: 05-21-2025 Chronic Immunizations and screening for infectious disease (4 sources) Needs influenza immunization; Translations: [Encounter for immunization] Onset: 07-23-2025 Episodic Nutritional deficiencies (20 sources) Vitamin D deficiency; Translations: [Vitamin D deficiency, unspecified] Onset: 01-30-2022 Chronic Nutritional deficiencies (1 source) Iron deficiency; Translations: [Iron deficiency] Onset: 07-23-2025 Episodic Other aftercare (2 sources) Post-discharge follow-up; Translations: [Encounter for follow-up examination after completed treatment for conditions other than malignant neoplasm] 03-01-2025 Episodic Other aftercare (12 sources) Long-term current use of anticoagulant; Translations: [long-term (current) use of anticoagulants] 05-03-2025 Episodic Other aftercare (2 sources) Long-term current use of drug therapy; Translations: [Encounter for therapeutic drug level monitoring] 07-30-2025 Episodic Other aftercare (1 source) Encounter for therapeutic drug level monitoring; Translations: [Encounter for therapeutic drug level monitoring] Onset: 07-30-2025 Episodic Other aftercare (1 source) Other group home (current) drug therapy; Translations: [Other computer terminal operator (current) drug therapy] Onset: 07-30-2025 Episodic Other aftercare (2 sources) long-term (current) use of anticoagulants; Translations: [long-term (current) use of anticoagulants] Onset: 06-08-2025 Episodic Other circulatory disease (5 sources) H/O: heart failure; Translations: [Personal history of other diseases of the circulatory system] 05-13-2025 Episodic Other connective tissue disease (8 sources) Swelling of lower limb; Translations: [Other specified soft tissue disorders] 05-03-2025 Episodic Other gastrointestinal disorders (20 sources) Irritable bowel syndrome; Translations: [Irritable bowel syndrome without diarrhea] Onset: 08-13-2008 05-13-2009 Chronic Other hematologic conditions (4 sources) Splenic cyst; Translations: [Cyst of spleen] Episodic Other liver diseases (1 source) Alkaline phosphatase raised; Translations: [Abnormal levels of other serum enzymes] 05-12-2025 Episodic Other liver diseases (1 source) Abnormal levels of other serum enzymes; Translations: [Elevated alkaline phosphatase level] Onset: 07-23-2025 Episodic Other lower respiratory disease (20 sources) Dyspnea; Translations: [Dyspnea, unspecified] Episodic Other lower respiratory disease (6 sources) Multiple nodules of lung; Translations: [Other nonspecific abnormal finding of lung field] 12-26-2023 Episodic Other lower respiratory disease (20 sources) Dyspnea on exertion; Translations: [Other forms of dyspnea] 02-19-2025 Episodic Other lower respiratory disease (5 sources) History of chronic obstructive airway disease; Translations: [Personal history of other diseases of the respiratory system] 05-13-2025 Episodic Other lower respiratory disease (2 sources) Shortness of breath; Translations: [Shortness of breath] Onset: 07-30-2025 Episodic Other lower respiratory disease (1 source) Other nonspecific abnormal finding of lung field; Translations: [Lung nodules] Onset: 08-04-2025 Episodic Other nervous system disorders (1 source) Other symptoms and signs involving cognitive functions and awareness; Translations: [Brain fog] Onset: 07-23-2025 Episodic Other nutritional; endocrine; and metabolic disorders [...] [Otitis media, unspecified, left ear] 03-13-2024 Episodic Pneumonia (except that caused by tuberculosis or sexually transmitted disease) (1 source) Pneumonia, unspecified organism; Translations: [Pneumonia of both lungs due to infectious organism, unspecified part of lung] Onset: 06-04-2025 Episodic Residual codes; unclassified (2 sources) Obstructive sleep apnea (adult) (pediatric); Translations: [Obstructive sleep apnea (adult) (pediatric)] Onset: 05-12-2013 Chronic Residual codes; unclassified (20 sources) Obstructive sleep apnea syndrome; Translations: [Obstructive sleep apnea (adult) (pediatric)] Onset: 04-06-2025 10-23-2021 Chronic Residual codes; unclassified (1 source) Hypersomnia; Translations: [Hypersomnia, unspecified] 04-23-2025 Chronic Residual codes; unclassified (1 source) Hypersomnia, unspecified; Translations: [Hypersomnia] Onset: 04-23-2025 Chronic Residual codes; unclassified (1 source) Confusional state; Translations: [Disorientation, unspecified] 04-20-2025 Episodic Residual codes; unclassified (1 source) Acute confusion; Translations: [Disorientation, unspecified] 04-23-2025 Episodic Residual codes; unclassified (1 source) Bilateral lower limb edema; Translations: [Localized edema] 04-06-2025 Episodic Residual codes; unclassified (2 sources) Localized edema; Translations: [Localized edema] Onset: 05-12-2025 Episodic Respiratory failure; insufficiency; arrest (adult) (20 sources) Dependence on supplemental oxygen; Translations: [Dependence on supplemental oxygen] Onset: 05-06-2017 05-06-2017 Chronic Respiratory failure; insufficiency; arrest (adult) (5 sources) Acute hypercapnic respiratory failure; Translations: [Acute respiratory failure with hypercapnia] 05-13-2025 Episodic Screening and history of mental health and substance abuse codes (20 sources) Ex-smoker; Translations: [Personal history of nicotine dependence] Onset: 07-29-2025 10-05-2011 Episodic Skin and subcutaneous tissue infections (14 sources) Infection of skin; Translations: [Local infection of the skin and subcutaneous tissue, unspecified] 01-29-2024 Episodic Unclassified (9 sources) see to establish care for lung disease as seen per CT Unclassified (19 sources) I48.92 - Unspecified atrial flutter Unclassified (9 sources) APPOINTMENT WITH ANTIONETTE TELEPHONY ENGINEER Unclassified (1 source) Consult Onset: 08-10-2025 Viral infection (2 sources) Disease caused by 2019-nCoV; Translations: [COVID-19] Episodic Past or Other Problems Problem Classification Problem Date Documented Da te Episodic/Chronic Abdominal pain (20 sources) Abdominal pain; Translations: [Unspecified abdominal pain] Onset: 08-13-2008 Resolved: 10-13-2019 10-13-2019 Episodic Allergic reactions (2 sources) Urticaria; Translations: [Urticaria, unspecified] Onset: 04-23-2025 04-23-2025 Episodic Cardiac dysrhythmias (3 sources) Tachycardia; Translations: [Tachycardia, unspecified] Onset: 04-23-2025 04-23-2025 Episodic Coma; stupor; and brain damage (2 sources) Daytime somnolence; Translations: [Somnolence] Onset: 03-10-2025 03-10-2025 Episodic Conditions associated with dizziness or vertigo (20 sources) Lightheadedness; Translations: [Dizziness and giddiness] Onset: 01-30-2022 Episodic Malaise and fatigue (20 sources) Fatigue; Translations: [Other fatigue] Onset: 03-13-2024 08-14-2023 Episodic Mycoses (2 sources) Candidal intertrigo; Translations: [Candidiasis of skin and nail] Onset: 04-20-2025 04-20-2025 Episodic Other aftercare (1 source) Encounter for follow-up examination after completed treatment for conditions other than malignant neoplasm; Translations: [Hospital discharge follow-up] Onset: 03-01-2025 Episodic Other connective tissue disease (20 sources) Plantar fascial fibromatosis; Translations: [Plantar fascial fibromatosis] Onset: 05-04-2006 Resolved: 08-19-2006 08-19-2006 Episodic Other inflammatory condition of skin (20 sources) Intertrigo; Translations: [Erythema intertrigo] Onset: 05-01-2022 05-01-2022 Episodic Other lower respiratory disease (20 sources) Hypoxemia; Translations: [Hypoxemia] Onset: 02-03-2010 02-03-2010 Episodic Other lower respiratory disease (2 sources) Other forms of dyspnea; Translations: [Other forms of dyspnea] Onset: 02-23-2025 Episodic Other nutritional; endocrine; and metabolic disorders (20 sources) Obesity; Translations: [Obesity, unspecified] Onset: 05-04-2006 Resolved: 10-13-2019 10-13-2019 Chronic Other skin disorders (20 sources) Actinic keratosis; Translations: [Actinic keratosis] Onset: 05-19-2019 05-19-2019 Episodic Other skin disorders (20 sources) Loss of hair; Translations: [Nonscarring hair loss, unspecified] Onset: 01-20-2025 01-20-2025 Episodic Other skin disorders (1 source) Nonscarring hair loss, unspecified; Translations: [Hair thinning] Onset: 01-20-2025 Episodic Residual codes; unclassified (2 sources) Disorientation, unspecified; Translations: [Acute confusion] Onset: 04-20-2025 Episodic Substance-related disorders (20 sources) Tobacco user; Translations: [Nicotine dependence, unspecified, uncomplicated] Resolved: 10-05-2011 10-05-2011 Chronic Urinary tract infections (2 sources) Acute cystitis; Translations: [Acute cystitis with hematuria] Onset: 04-20-2025 04-20-2025 Episodic Results Test Name Value Interpretation Reference Range Facility [facility] 08-10-2025 CNOV Office Visit (GENSWS ) RAJENDRA LUCERO ([id number]) 1955 Date Time Provider Department 08/10/25 11:00 AM YAJAIRA ROBERSONS During your visit today, we recorded the following information about you: Jr Chou RN 08/11/2025 9:58 AM Signed REVIEW OF SYSTEMS: General: The patient notes fatigue, denies weight loss, denies weight gain, denies feeling hot, and denies feelings of cold. Eyes: The patient denies glaucoma, denies eye injury/surgery, wears glasses or contacts. Ear/Nose/Throat: The patient denies allergies, denies hayfever, denies ear infections, and denies bloody noses. Cardiovascular: The patient denies chest pain, denies heart disease, notes high blood pressure,denies cardiac stent, denies prior heart attack, notes irregular heart beat, notes high cholesterol, denies poor circulation, denies heart failure, other cardiac issues, denies claudication, denies cold feet, denies peripheral arterial stent. Respiratory: The patient denies tuberculosis, denies pneumonia, denies frequent cough, denies pulmonary embolism, notes shortness of breath, and denies coughing up blood. Gastrointestinal: The patient denies difficulty swallowing, denies acid reflux, denies ulcers, denies vomiting, denies jaundice/hepatitis, denies gallbladder problems, denies black or tarry stools, denies hemorrhoids, denies bleeding from rectum, denies diverticulitis, denies constipation, denies diarrhea, denies loss of stool control, and denies hernias. Kidney/Bladder: The patient denies kidney stones, denies urine infections, and denies bloody urine. Skin: The patient denies a history of skin cancer, denies bleeding/changing moles, and denies a history of skin rash. Neurologic: The patient denies a history of epilepsy/convulsions, denies headaches, denies head/spinal injuries, and denies stroke/TIA. Psychiatric: The patient denies psychiatric medications, denies depression, and denies voices, denies substance abuse. Endocrine: The patient denies thyroid disorders, denies diabetes, and denies hormonal problems. Hematologic: The patient denies a history of bruising, denies bleeding, and denies anemia, denies blood clots. Infections: The patient denies a history of measles and mumps, denies rheumatic fever, and denies sexually transmitted diseases. Musculoskeletal: The patient denies back pain/injury, denies back problems, denies sciatica, denies knee/foot trouble, denies arthritis, or denies gout. When was patient's last Mammogram screening? 2023 Last Colonoscopy: HERRERA Jones Daniel P, MD 08/11/2025 9:58 AM Signed HISTORY AND PHYSICAL Rajendra Lucero 1955 REFERRING PHYSICIAN: Phuc Martines DO CHIEF COMPLAINT: Consult (Cysts in spleen. PCP sent for consult) HPI: Linwood is a 69-year-old female presenting for evaluation of splenic cysts. Linwood was referred by her PCP, Dr. Martines, after imaging revealed splenic cysts. She reports a colonoscopy performed by Dr. Burton in October or November, but does not recall the exact date. She expresses concern about the possibility of cancer and whether the cysts could be growing or increasing in number. She is up to date on pneumococcal and COVID vaccines, has received the influenza vaccine, and plans to receive the RSV vaccine in 2 weeks as advised by her PCP. The patient is being seen by me today at the request of Dr. Phuc Martines, for my opinion and advice regarding Cyst of spleen. PAST MEDICAL HISTORY Diagnosis Date Atrial flutter (HCC) CHF (congestive heart failure) (HCC) Chronic atrial fibrillation (HCC) 07/26/2025 Chronic hypoxemic respiratory failure (HCC) COPD (chronic obstructive pulmonary disease) (HCC) 02/03/2010 Coronary artery disease No UT, CHF. No heart cath. Diverticulosis of colon [...] WISDOM TEETH Current Outpatient Medications Medication Sig potassium chloride ER (KLOR-CON) 20 mEq tablet Take 1 tablet by mouth three times a day. furosemide (LASIX) 40 mg tablet Take 1 tablet by mouth two times a day. roflumilast (DALIRESP) 250 mcg tablet Take 1 tablet by mouth once daily. dilTIAZem CD (CARDIZEM CD, CARTIA XT) 180 mg 24 hr capsule Take 1 capsule by mouth every (more content not included)... Normal [facility] CNOVon 08-04-2025 CNOV Office Visit (PULMWS ) RAJENDRA LUCERO ([id number]) 1955 F Date Time Provider Department 08/04/25 10:00 AM RAJENDRA GOODMAN PULMWS During your visit today, we recorded the following information about you: Pulse Respiration Weight 57/minute 16/minute 111.1 kg Rajendra Goodman, CHILD CARE CENTER ASSISTANT DIRECTOR.PRACTICE NURSE 08/04/2025 10:29 AM Signed Pulmonary Medicine Patients name: Rajendra Palumbo PCP: Phuc Martines, Recording using ambient AI software for draft documentation of the visit was discussed with the patient/authorized guest services representative; all questions welcomed and answered. Patient/authorized guest services representative agreed to proceed CC: follow-up HPI: Rajendra Lucero is a 69 year old female former [id number] smoker, quitting in 2008 with PMH significant for morbid obesity, severe COPD, chronic hypoxemic and hypercapnic respiratory failure, CAD, HTN, and ROXY. ABRAHAM 06/04 for hospital follow-up. She was hospitalized for CHF/COPD and was found to have severe hypercapnic respiratory failure. Started on NIV after last visit. Current therapy consists of Trelegy Ellipta with as needed albuterol/Duoneb and Daliresp. On supplemental O2. She presents today for follow-up. Since her last visit, she was able to be discharged home from rehab after her prior hospitalization. Was able to start on NIV. Initially had trouble with the fit of the mask but found one that is working well for her. Reports there hasn't been much change in her sleep quality, continues to wake up at night on occasion. Today, she states her oxygen levels have been stable and has not had further respiratory infections. No further hospitalizations. She notes a slightly worse cough d/t PND but not bothersome. No wheezing or chest tightness. No dyspnea at rest. Exertional dyspnea overall is better. No fevers, chills, or night sweats. No recent hospitalizations or ED visits or upper respiratory infections. Duoneb use is rare, once a month. Occasionally pre-treats with albuterol prior to activity. DME: Bruce 3.5 L at rest/nocturnal and 6L with activity [employer]: NIV PAST MEDICAL HISTORY Diagnosis Date Atrial flutter (HCC) CHF (congestive heart failure) (HCC) Chronic atrial fibrillation (HCC) 07/26/2025 Chronic hypoxemic respiratory failure (HCC) COPD (chronic obstructive pulmonary disease) ([facility]) 02/03/2010 Coronary artery disease No UT, CHF. No heart cath. Diverticulosis of colon (without mention of hemorrhage) Essential hypertension, benign Fibrocystic breast Former smoker Internal hemorrhoids without mention of complication Leiomyoma of uterus, unspecified Obstructive sleep apnea Mild. Not prescribed CPAP, only 2L nasal O2. Allergies: Aleve [Naproxen] Hives Comment:Hives, edema of hands within 1 hour of use Nitrofurantoin Rash Medication List Accurate as of August 04, 2025 8:04 AM. If you have any questions, ask your nurse or doctor. CONTINUE taking these medications albuterol HFA 90 mcg/actuation inhaler Commonly known as: PROVENTIL HFA, VENTOLIN HFA Inhale 2 Puffs as instructed every 6 hours as needed for wheezing/shortness of breath. apixaban 5 mg tab(s) Commonly known as: ELIQUIS atorvastatin 40 mg tablet Commonly known as: LIPITOR B12 ACTIVE PO CINNAMON PO COMPOUNDED PRESCRIPTION COMPOUNDED PRESCRIPTION Please dispense nebulizer and supply kit, including tubing, mouth piece, and hose. Assoc diagnosis: J44.9. Dispense: 1 each, Refills: 99. dilTIAZem CD 180 mg 24 hr capsule Commonly known as: CARDIZEM CD, CARTIA XT SIVAN C ORAL FARXIGA 10 mg tablet Generic drug: dapagliflozin propanediol furosemide 40 mg tablet Commonly known as: LASIX Take 1 tablet by mouth two times a day. ipratropium-albuterol 0.5 mg-3 mg(2.5 mg base)/3 mL Nebu Commonly known as: DUONEB Inhale 3 mL as instructed four times daily. Inhale via nebulizer over 5-15 minutes. metoprolol tartrate (short acting) 50 mg tablet Commonly known as: LOPRESSOR multivitamin tablet OXYGEN (HOME THERAPY) 3.5L at night and 6L with exertion potassium chloride ER 20 mEq tablet Commonly known as: KLOR-CON Take 1 tablet by mouth three times a day. roflumilast 250 mcg tablet Commonly known as: DALIRESP Take 1 tablet by mouth once daily. TRELEGY ELLIPTA 200-62.5-25 mcg inhalation powder Generic drug: hpxlmfydweb-ywgkozyns-bcxbpht r Inhale 1 Puff as instructed once daily. triamcinolone acetonide 0.5 % cream Commonly known as: KeNALog Apply 1 application to affected area two times a day as needed (foot rash, eczema). For rash/itching. Apply sparingly. Avoid face/skin fold. DATA: I personally reviewed and analyzed all labs, radiographs and available pulmonary function testing PFT: 02/2022 Spirometry indicates very severe obstruction. CT Chest: OSH 04/2025 Vaccines: Influenza: 07/23/25 Prevnar 20: 01/2023 R (more content not included)... [facility] RAJ[facility] LUCERO ([id number]) 1955 F Date Time Provider Department 07/30/25 [facility] During your visit today, we recorded the following information about you: Pito Chin LPN 07/30/2025 2:48 PM Signed Called patient to notify that her referral is for a splenic cyst and not pancreas related and that her appt with Dr. Linwood Matson scheduled for 08/03/25 fozia be cancelled. She verbalized understanding and will number given to her for a Gen. Surgery appt. Allergies As of Date: 07/30/2025 Noted Allergy Reaction ALEVE (NAPROXEN) 05/31/2020 4 - Hives Comments: Hives, edema of hands within 1 hour of use NITROFURANTOIN 04/23/2025 2 - Rash Date Reviewed: 07/29/2025 Reviewed by: Brandyn Carrasco APRN.PRACTICE NURSE - Fully Assessed Reason for Visit: Appointment [[id number]] Prescriptions as of 08/03/2025 - potassium chloride ER (KLOR-CON) 20 mEq tablet Take 1 tablet by mouth three times a day. - furosemide (LASIX) 40 mg tablet Take 1 tablet by mouth two times a day. - roflumilast (DALIRESP) 250 mcg tablet Take 1 tablet by mouth once daily. - dilTIAZem CD (CARDIZEM CD, CARTIA XT) 180 mg 24 hr capsule Take 1 capsule by mouth every 12 hours. - atorvastatin (LIPITOR) 40 mg tablet Take 40 mg by mouth once daily. - FARXIGA 10 mg tablet Take 10 mg by mouth every morning. - apixaban (ELIQUIS) 5 mg tab(s) Take [...] as needed for wheezing/shortness of breath. - pzbwbdppcqr-vyddogcee-sdixrlx r (TRELEGY ELLIPTA) 200-62.5-25 mcg inhalation powder Inhale 1 Puff as instructed once daily. - triamcinolone acetonide (KENALOG) 0.5 % cream [...] at night and 6L with exertion - COMPOUNDED PRESCRIPTION Please dispense nebulizer and supply kit, including tubing, mouth piece, and hose. Assoc diagnosis: J44.9. Dispense: 1 each, Refills: 99. - ASCORBIC ACID/BIOFLAVONOIDS (SIVAN C ORAL) Take 1 capsule by mouth once daily. - COMPOUNDED PRESCRIPTION 3.5L of O2 at night and 6L with exertion. - multivitamin tablet Take 1 tablet by mouth once daily. Problem List As Of Date 07/30/2025 Noted Resolved BENIGN HYPERTENSION [I10] 07/07/2008 Tobacco [...] [Z12.11] 08/27/2018 10/13/2019 Actinic keratosis [L57.0] 05/19/2019 Medicare annual wellness visit, subsequent [Z00*05/19/2019 Chronic respiratory failure with hypoxia (HCC) *10/13/2019 Lightheaded [R42] 01/30/2022 Vitamin D deficiency [E55.9] 01/30/2022 Dyslipidemia [E78.5] 01/30/2022 Intertrigo [L30.4] 05/01/2022 Chronic obstructive pulmonary disease (HCC) [J4*02/07/2023 Acute bronchitis with chronic obstructive pulmo*03/13/2024 Fatigue [R53.83] 03/13/2024 Thoracic aortic ectasia (HCC) [I77.810] 03/13/2024 Hair thinning [L65.9] 01/20/2025 Chronic atrial fibrillation (HCC) [I48.20] 07/26/2025 Paroxysmal atrial fibrillation (HCC) [I48.0] 07/26/2025 IFG (impaired fasting glucose) [R73.01] 07/26/2025 Iron deficiency [E61.1] 07/26/2025 Essential (primary) hypertension [I10] 07/26/2025 Brain fog [R41.89] 07/26/2025 Hypokalemia [E87.6] 07/26/2025 Encounter Status:Closed by PITO CHIN on 08/03/25 Normal [facility] Cardiology Visit Reporton Cardiology Visit Report Normal [facility] CNOVon 07-29-2025 CNOV Office Visit (PULMWS ) RAJENDRA LUCERO ([id number]) 1955 F Date Time Provider Department 07/29/25 11:00 AM BRANDYN CARRASCO During your visit today, we recorded the following information about you: Temperature Pulse Blood pressure Weight 98.6 degrees 60/minute 127/75 111.3 kg Brandyn Carrasco APRN.CNP 07/29/2025 11:43 AM Signed Plan for follow-up: Please schedule LDCT in 3 months Please schedule a follow up visit after the scan to go over the results. Final results will be communicated to you once available. Today we discussed your Low dose CT results. Awaiting radiology report for final recommendations. CT Lung Screen Results The CT scan that you will have done will show if you have any nodules (small spots) in your lungs that are suspicious for cancer. Around 90% of the patients who have this scan done are found to have at least one nodule. Most nodules are benign (not cancer) and of no harm to you at all. A specialist will make a scientific evaluation about whether or not a nodule is worrisome based on its size and shape. The radiologist who will read your scan will put it into one of four categories: LUNG-RADS Category Description Overall Probability of Malignancy Recommended Follow-Up 1 Negative No nodules and definitely benign (non-cancerous nodules) Essentially 0. 1 Year - Follow-up Low dose CT 2 Benign Appearance or Behavior Nodules with a very low likelihood of becoming cancer due to size or lack of growth Less than 1% 1 Year - Follow-up Low dose CT 3 Probably Benign Probably benign finding, short term follow-up recommended 1 to 2% 6 Months - Follow-up Low dose CT 4 Suspicious Findings for which additional diagnostic testing and/or biopsy is recommended Will be calculated based on nodule characteristics. Dependent on what is seen on the exam. (3 month follow-up CT, PET-CT, or biopsy) 0 Incomplete Findings suggestive of an inflammatory or infectious process AND/OR part of the lung cannot be evaluated Additional lung cancer screening CT imaging needed AND/OR comparison with prior chest CT imaging At times, we may see something outside of the lungs on the scan that could be a health concern. Below are some of the most common findings: S Clinically Significant or Potentially Clinically Significant Findings (non lung cancer) Referral or additional imaging/labs depending on result. Approximately 10% of people receive this result. Coronary Artery Calcifications (Moderate or Severe) - Referral to cardiology for further work-up and recommendations. Thyroid Nodule - TSH level and Thyroid Ultrasound dependent on size, referral to endocrinology. Adrenal Nodule - blood work and referral to endocrinology. Others? Lung Cancer Screening hotline: [phone] Lung Cancer Screening [phone] Billing Questions: or [email or web address] If you have any questions or concerns, please feel free to contact our team at [phone]. Brandyn Carrasco, JAKI.ELVIA 07/29/2025 12:10 PM Signed [facility] Lung Cancer Screening 6 month follow up Chief Complaint: Established patient in lung cancer screening program here for a 6 month follow up visit. PRIMARY CARE PHYSICIAN: Phuc Martines DO PULMONARY PROVIDER: Dr. Gonzalez COMMERCIAL BAKER HELPER: Dr. Elena Current or Ex-smoker? [Ex] Exam Type: Follow - Up LDCT Number of Pack Years: 38 Number of Years since Quit: 15 [facility] LUNG CANCER SCREENING FOLLOWUP ADVANCED: Diagnosis: Lung Nodule Recommendation: CT Scan Follow Up Due Date: 11/04/2025 All Follow Up Scheduled: Yes Pulmonary Follow Up Type: Lung Nodule Surveillance Patient should be added to the Lung Cancer Screening Followup Report: Yes Lung Cancer Screening Program Location: [facility] Impression / Recommendations Rajendra Lucero presents for 6 month follow up lung cancer screening exam and nodule evaluation. 1. Lung nodules (R91.8) - Recent CT lung screening on 07/29/2025 revealed a new area of nodularity, likely inflammatory in nature; previously observed nodular consolidation in the right middle lobe remains stable. 2. Encounter for screening for malignant neoplasm of respiratory organs (Z12.2) - Order repeat CT scan in 3 months to monitor new nodular area. - Educated patient on the likely inflammatory nature of the new nodules and the importance of follow-up imaging to ensure resolution. 3. Personal history of nicotine dependence (Z87.891) - No current tobacco, marijuana, or vaping use. 4. Coronary artery calcification seen on CAT scan (I25.10) - Mild coronary artery calcifications noted on previous CT scan; patient is currently on Lipitor. 5. Chronic hypoxemic respiratory failure (HCC) (J96.11) - Patient on 3.5 L O2 at rest and 6 L O2 with exertion. - No increase in baseline dyspnea, chest tightne (more content not included)... Normal [facility] CT LUNG FOLLOWUP WO IVCONon 07-29-2025 CT LUNG FOLLOWUP WO IVCON * * *Final Report* * * DATE OF EXAM: Jul 29 2025 10:41AM [facility] 0561 - CT LUNG FOLLOWUP WO IVCON / PROCEDURE REASON: Lung nodules * * * * Physician Interpretation * * * * EXAMINATION: CHEST CT WITHOUT CONTRAST (LOW-DOSE CT LUNG CANCER SCREENING PROTOCOL) CLINICAL HISTORY: Lung cancer LDCT screening ? absence of signs or symptoms of lung cancer. Followup LDCT Technique: Spiral CT acquisition of the chest from the thoracic inlet to the upper abdomen without contrast. MQ: CTLCS_6 Patient characteristics: * Snae-xd-Iczgo: 1955; Age at exam: 69 years * Gender: Female * Lung Disease: Asymptomatic (no signs or symptoms of lung disease) * Number of Pack Years: 38 * Current smoker (=0) or Number of Years since Quit: 15 * Ordering provider and NPI: MARICRUZ CAMP [id number] * Interpreting radiologist and NPI: [place] [id number] Exam acquisition parameters: * Exam Date: 07/29/2025 10:41 AM * Site: [facility] * * CT System Wax Pourer: Siemens * CT System Model: Sensation * Tube Current-Time (mA-sec): 42 * Peak Voltage (kV): 120V * Scan Time (sec): 12.33 * Scan Volume (z-length, cm): -33.10 * Pitch: 0.75 * Slice Thickness (mm): 1.5 * CT Dose-Length Product: 138 mGy*cm * CT Dose Index: 3.27mGy * CT Dose Reduction Method: Automated exposure control(AEC) and iterative recon COMPARISON: Lung cancer screening CT dated 01/25/2025 RESULT: Are nodules present? Yes, 1-5 nodules New clustered peribronchial nodules in the lateral right lower lobe image 223, likely small airway infection. Stable scattered noncalcified nodules including a 12 mm right apical nodule on image 46, a 3 mm anterior right upper lobe nodule on image 58, a 6 mm lateral right lower lobe subpleural nodule on image 195, a 2 mm right middle lobe nodule on image 185 OTHER LUNG FINDINGS: Moderate upper lung predominant centrilobular and paraseptal emphysema is present. There are areas of mucus plugging and diffuse bilateral mild bronchial wall thickening in both lungs. Mild biapical scarring, likely post inflammatory. Scattered linear atelectasis/scarring in the middle lobe, lingula, and bilateral lower lobes. CORONARY ARTERY CALCIFICATION:Mild. CARDIOVASCULAR: The pulmonary trunk is enlarged measuring up to 3.5 cm. The ascending aorta is normal in size. No pericardial effusion or thickening. MEDIASTINUM: Unremarkable. OTHER SIGNIFICANT FINDINGS: Degenerative changes are seen. IMPRESSION: LungRADS category: 0 Findings suggestive of an inflammatory or infectious process LungRADS modifier: None Recommendations: 1-3 month LDCT Other actionable findings: Reference: [employer]. Lung CT Screening Reporting and Data System (Lung-RADS). Available at: http://[email or web address].org/Quality-[email or web address]/LungRADS Power Electronics Engineer: PSCB Transcribe Date/Time: Jul 30 2025 9:48P Dictated by : CHUNG THORNE MD This examination was interpreted and the report reviewed and electronically signed by: CHUNG THORNE MD on Jul 30 2025 9:53PM EST [id number] Normal [facility] 07-28-2025 CNPN Telephone (FAMPWS) RAJENDRA LUCERO ([id number]) 1955 F Date Time Provider Department 07/28/25 [facility] During your visit today, we recorded the following information about you: Erica Mckenzie LPN 07/28/2025 2:[address] Martines. My ultrasound results went to Sofi Garcia. Are you able to see them also? She referred me to Dr. Linwood Matson at [facility]. I have an appointment for Aug 03. They said the cyst had grown, but I am concerned about why I am being referred to a Gastro Dr. I just wondered if you could shed some light? Thank you, Basia Hernandez, RN 08/02/2025 12:42 PM Signed Pt called in and would like provider to look at the US of her spleen and get back to her. She states she had an appointment scheduled with Dr Liwnood Matson, but he is a pancreatic surgeon not a splenic, so they canceled the appointment. She states they gave her the names of some general surgeons up there, but she would like to talk with Dr Martines first, because no one had said anything about surgery before. Then Pt would like provider to go over her lab results and get back to her. Please call and advise. MCHC 30.5 - 36.0 g/dL 30.3 Low 30.8 31.7 31.8 32.5 31.9 32.7 RDW-CV 11.5 - 15.0 % 17.4 High 14.6 14.4 14.0 13.7 13.8 14.2 Chloride 98 - 107 mmol/L 96 Low 91 Low 94 Low 93 Low R 96 Low R 97 R CO2 22 - 30 mmol/L 33 High 39 High 37 High 30 32 High 35 High Hemoglobin A1C 4.3 - 5.6 % 5.7 High 5.6 CM 5.9 High CM 5.8 High CM 5.5 CM 6.1 High CM 5.6 C Iron 41 - 186 ug/dL 76 92 TIBC 232 - 386 ug/dL 403 High 403 High Transferrin Saturation 15.0 - 57.0 % 18.9 22.8 HERRERA Johnson Jordan L, DO 08/02/2025 4:52 PM Signed Please let her know that her US is showing that the area of the cystic lesion in the spleen has grown/changed in size and there are now 3 separate cystic lesions in the spleen. Recommend starting with general surgeon here in [place] just for opinion. Unsure if biopsy is needed or not- this would be up to the specialist. Overall labs are stable/improved. No acute issues. Still in the prediabetes range. Liver enzyme and renal function are normal DO Kayleigh Falk Amanda, RN 08/02/2025 5:18 PM Signed Pt called and is notified of providers results and instructions. Pt voices understanding. Pt states she will call back in tomorrow to schedule with a general surgeon. HERRERA Johnson Sherrie 08/03/2025 8:59 AM Signed 1st attempt left message to return call to arrange consult to Gen Surgery per PCP, see phone note. Charlotte Walker 08/07/2025 11:44 AM Signed Patient is scheduled with Dr. Roberson on 08/10/24. Allergies As of Date: 07/28/2025 Noted Allergy Reaction ALEVE (NAPROXEN) 05/31/2020 4 - Hives Comments: Hives, edema of hands within 1 hour of use NITROFURANTOIN 04/23/2025 2 - Rash Date Reviewed: 07/23/2025 Reviewed by: Erica Mckenzie LPN - Fully Assessed Reason for Visit: Patient Update [1234] Patient Question [2207] Appointment [186] Prescriptions as of 08/07/2025 - potassium chloride ER (KLOR-CON) 20 mEq tablet Take 1 tablet by mouth three times a day. - furosemide (LASIX) 40 mg tablet Take 1 tablet by mouth two times a day. - roflumilast (DALIRESP) 250 mcg tablet Take 1 tablet by mouth once daily. - dilTIAZem CD (CARDIZEM CD, CARTIA XT) 180 mg 24 hr capsule Take 1 capsule by mouth every 12 hours. - atorvastatin (LIPITOR) 40 mg tablet Take 40 mg by mouth once daily. - FARXIGA 10 mg tablet Take 10 mg by mouth every morning. - apixaban (ELIQUIS) 5 mg tab(s) Take [...] as needed for wheezing/shortness of breath. - pukxjiorkxd-scwuvcrrz-wvahiqp r (TRELEGY ELLIPTA) 200-62.5-25 mcg inhalation powder Inhale 1 Puff as instructed once daily. - triamcinolone acetonide (KENALOG) 0.5 % cream [...] at night and 6L with exertion - COMPOUNDED PRESCRIPTION Please dispense nebulizer and supply kit, including tubing, mouth piece, and hose. Assoc diagnosis: J44.9. Dispense: 1 each, Refills: 99. - ASCORBIC ACID/BIOFLAVONOIDS (SIVAN C ORAL) Take 1 capsule by mouth once daily. (more content not included)... Normal [facility] US ABD RIGHT UPPER QUADRANTo n 07-26-2025 US ABD RIGHT UPPER QUADRANT * * *Final Report* * * DATE OF EXAM: Jul 26 2025 12:00PM [facility] 1032 - US ABD RIGHT UPPER QUADRANT / PROCEDURE REASON: RUQ pain * * * * Physician Interpretation * * * * EXAMINATION: RIGHT UPPER QUADRANT AND SPLEEN ULTRASOUND CLINICAL HISTORY: Right upper quadrant pain TECHNIQUE: Sonography of the right upper quadrant and spleen was performed. Images were obtained and stored in a permanent archive and interpreted remotely. MQ: URUQ_2 COMPARISON: CT abdomen dated 07/18/2015 and ultrasound dated 03/06/2023 RESULT: Pancreas: Normal sonographic appearance. Portions obscured: tail Liver: Echotexture: Normal, homogeneous. Echogenicity: Normal Surface contour: Smooth Lesions: None. Biliary: No intrahepatic biliary duct dilation. CBD: 0.5 cm at the hilum. Gallbladder: Bilateral kidneys: Normal cortical echogenicity. No hydronephrosis. Spleen: Normal in size measuring 10.3 cm in craniocaudad dimension. Several splenic cystic lesions with guest services representative measurements as follows. A multi septated cystic lesion in the inferior pole of the spleen measures 2.1 cm, previously 8 mm. An additional multi septated cystic lesion in the mid spleen measures 2.8 cm, previously 2 cm. A third cystic lesion in the midpole of the spleen with a thin internal septation measures 1.6 cm, not previously measured. Ascites: None. IMPRESSION: 1. Slight interval increase in size of splenic multi septated cystic lesions. 2. Otherwise, unremarkable sonogram of the abdomen. Power Electronics Engineer: PSCB Transcribe Date/Time: Jul 27 2025 8:19A Dictated by : MYESHA HAWK MD This examination was interpreted and the report reviewed and electronically signed by: MYESHA HAWK MD on Jul 27 2025 8:23AM EST [id number] Normal [facility] US ABD SPLEEN -NBon 07-26-20 US ABD SPLEEN -NB * * *Final Report* * * DATE OF EXAM: Jul 26 2025 12:00PM [facility] 1232 - US ABD SPLEEN -NB / PROCEDURE REASON: RUQ pain * * * * Physician Interpretation * * * * EXAMINATION: RIGHT UPPER QUADRANT AND SPLEEN ULTRASOUND CLINICAL HISTORY: Right upper quadrant pain TECHNIQUE: Sonography of the right upper quadrant and spleen was performed. Images were obtained and stored in a permanent archive and interpreted remotely. MQ: URUQ_2 COMPARISON: CT abdomen dated 07/18/2015 and ultrasound dated 03/06/2023 RESULT: Pancreas: Normal sonographic appearance. Portions obscured: tail Liver: Echotexture: Normal, homogeneous. Echogenicity: Normal Surface contour: Smooth Lesions: None. Biliary: No intrahepatic biliary duct dilation. CBD: 0.5 cm at the hilum. Gallbladder: Bilateral kidneys: Normal cortical echogenicity. No hydronephrosis. Spleen: Normal in size measuring 10.3 cm in craniocaudad dimension. Several splenic cystic lesions with guest services representative measurements as follows. A multi septated cystic lesion in the inferior pole of the spleen measures 2.1 cm, previously 8 mm. An additional multi septated cystic lesion in the mid spleen measures 2.8 cm, previously 2 cm. A third cystic lesion in the midpole of the spleen with a thin internal septation measures 1.6 cm, not previously measured. Ascites: None. IMPRESSION: 1. Slight interval increase in size of splenic multi septated cystic lesions. 2. Otherwise, unremarkable sonogram of the abdomen. Power Electronics Engineer: PAT Transcribe Date/Time: Jul 27 2025 8:19A Dictated by : MYESHA HAWK MD This examination was interpreted and the report reviewed and electronically signed by: MYESHA HAWK MD on Jul 27 2025 8:23AM EST [id number] Normal [facility] 25(OH)D3 [facility] 2024 25-hydroxyvitamin D3 [Mass/Vol] 35.7 ng/mL Normal 31.0-80.0 [facility] Comment on above: Order Comment: Speci men Type: BLOOD SPECIMENOrdering Facility: [facility] Address: [address] [place] [address] Result Comment: Clas sification of 25 OH Vitamin D status: Deficiency/Insufficiency: < or = 30 ng/ml. Sufficiency/Optimal Levels: 31-80 ng/mL Toxicity: > 100 ng/mL. Test performed by chemiluminescent immunoassay. Performed By: #### 1 989-3 ####[facility] LABIA [id number] [place] [address] [place] ALKALINE PHOSPHATASE ISOENZY MES (P)on 07-23-2025 ALK PHOS BONE % 41.8 % Normal 10.7-68.3 [facility] Comment on above: Order Comment: Speci men Type: BLOOD SPECIMENOrdering Facility: [facility] Address: [address] [place] [address] Performed By: #### A LKISOP ####[facility] LABIA [id number] [place] [address] [place] ALK PHOS LIVER % 49.1 % Normal 26.0-86.2 [facility] Comment on above: Order Comment: Speci men Type: BLOOD SPECIMENOrdering Facility: [facility] Address: [address] [place] [address] Performed By: #### A LKISOP ####[facility] LABIA [id number] [place] [address] [place] BONE FRACTION 33.9 U/L Normal 12.9-52.6 [facility] Comment on above: Order Comment: Speci men Type: BLOOD SPECIMENOrdering Facility: [facility] Address: [address] [place] [address] Performed By: #### A LKISOP ####[facility] LABIA [id number] [place] [id number] [place] INTESTINE FRACTION 7.4 U/L Normal 0.0-16.3 [facility] Comment on above: Order Comment: Speci men Type: BLOOD SPECIMENOrdering Facility: [facility] Address: [address] [place] [address] Performed By: #### A LKISOP ####[facility] LABIA [id number] [place] [address] [place] LIVER FRACTION 39.8 U/L Normal 16.0-69.3 [facility] Comment on above: Order Comment: Speci men Type: BLOOD SPECIMENOrdering Facility: [facility] Address: [address] [place] [address] Performed By: #### A LKISOP ####[facility] LABIA [id number] [place] [address] [place] Neutrophils/100 WBC (Bld) 9.1 % Normal 0.0-24.2 [facility] Comment on above: Order Comment: Speci men Type: BLOOD SPECIMENOrdering Facility: [facility] Address: [address] [place] [address] Performed By: #### A LKISOP ####[facility] LABIA [id number] [place] [address] [place] ALP SerPl-cCncon 07-23-2025 ALP [Catalytic activity/Vol] 81 U/L Normal 34-123 [facility] Comment on above: Order Comment: Speci men Type: BLOOD SPECIMENOrdering Facility: [facility] Address: [address] [place] [address] Performed By: #### 6 768-6, 2132-9 ####[facility] LABIA [id number] [place] [address] [place] Ammonia Plas-sCncon 07-23-20 25 Ammonia (P) [Moles/Vol] 16 umol/L Normal 11-51 [facility] Comment on above: Order Comment: Speci men Type: BLOOD SPECIMENOrdering Facility: [facility] Address: [address] [place] [address] Performed By: #### 1 6362-6 ####[facility] LABIA [id number] [place] [address] [place] CBC W Auto Differential pane l (Bld)on 07-23-2025 Basophils (Bld) [#/Vol] 0.05 10*3/uL Normal <0.11 [facility] Comment on above: Order Comment: Speci men Type: BLOOD SPECIMENOrdering Facility: [facility] Address: [address] [place] [address] Performed By: #### 5 7021-8 ####[facility] LABCLIA [id number] [facility] [address], [facility] [place] Basophils/100 WBC (Bld) 0.7 % Normal [facility] Comment on above: Order Comment: Speci men Type: BLOOD SPECIMENOrdering Facility: [facility] Address: [address] [place] [address] Performed By: #### 5 7021-8 ####[facility] LABCLIA [id number] [address], [place] [address] [place] Differential cell count method Nom (Bld) Auto Normal [facility] Comment on above: Order Comment: Speci men Type: BLOOD SPECIMENOrdering Facility: [facility] Address: [address] [place] [address] Performed By: #### 5 7021-8 ####[facility] LABCLIA [id number] [address], [facility] [place] Eosinophils (Bld) [#/Vol] 0.14 10*3/uL Normal <0.46 [facility] Comment on above: Order Comment: Speci men Type: BLOOD SPECIMENOrdering Facility: [facility] Address: [address] [place] [address] Performed By: #### 5 7021-8 ####[facility] LABCLIA [id number] [facility] [place] [address] [place] Eosinophils/100 WBC (Bld) 2.1 % Normal [facility] Comment on above: Order Comment: Speci men Type: BLOOD SPECIMENOrdering Facility: [facility] Address: [address] [place] [address] Performed By: #### 5 7021-8 ####[facility] LABCLIA [id number] [address], [place] [address] [place] Erythrocyte distribution width (RBC) [Ratio] 17.4 % High 11.5-15.0 [facility] Comment on above: Order Comment: Speci men Type: BLOOD SPECIMENOrdering Facility: [facility] Address: [address] [place] [address] Performed By: #### 5 7021-8 ####[facility] LABCLIA [id number] [address], [place] [address] [place] Hematocrit (Bld) [Volume fraction] 43.5 % Normal 36.0-46.0 [facility] Comment on above: Order Comment: Speci men Type: BLOOD SPECIMENOrdering Facility: [facility] Address: [address] [place] [address] Performed By: #### 5 7021-8 ####[facility] LABIA [id number] [address], [place] [address] [place] Hemoglobin (Bld) [Mass/Vol] 13.2 g/dL Normal 11.5-15.5 [facility] Comment on above: Order Comment: Speci men Type: BLOOD SPECIMENOrdering Facility: [facility] Address: [address] [place] [address] Performed By: #### 5 7021-8 ####[facility] LABCLIA [id number] [address], [place] [address] [place] Immature granulocytes (Bld) [#/Vol] 10*3/uL Normal <0.10 [facility] Comment on above: Order Comment: Speci men Type: BLOOD SPECIMENOrdering Facility: [facility] Address: [address] [place] [address] Performed By: #### 5 7021-8 ####[facility] LABIA [id number] [address], [facility] [place] Immature granulocytes/100 WBC (Bld) 0.3 % Normal [facility] Comment on above: Order Comment: Speci men Type: BLOOD SPECIMENOrdering Facility: [facility] Address: [address] [place] [address] Performed By: #### 5 7021-8 ####[facility] LABCLIA [id number] [place] [address] [place] Lymphocytes (Bld) [#/Vol] 1.11 10*3/uL Normal 1.00-4.00 [facility] Comment on above: Order Comment: Speci men Type: BLOOD SPECIMENOrdering Facility: [facility] Address: [address] [place] [address] Performed By: #### 5 7021-8 ####[facility] LABCLIA [id number] [place] [address] [place] Lymphocytes/100 WBC (Bld) 16.5 % Normal [facility] Comment on above: Order Comment: Speci men Type: BLOOD SPECIMENOrdering Facility: [facility] Address: [address] [place] [address] Performed By: #### 5 7021-8 ####[facility] LABCLIA [id number] [place] [address] [place] MCH (RBC) [Entitic mass] 29.5 pg Normal 26.0-34.0 [facility] Comment on above: Order Comment: Speci men Type: BLOOD SPECIMENOrdering Facility: [facility] Address: [address] [place] [address] Performed By: #### 5 7021-8 ####[facility] LABCLIA [id number] [place] [address] [place] MCHC (RBC) [Mass/Vol] 30.3 g/dL Low 30.5-36.0 [facility] Comment on above: Order Comment: Speci men Type: BLOOD SPECIMENOrdering Facility: [facility] Address: [address] [place] [address] Performed By: #### 5 7021-8 ####[facility] LABCLIA [id number] [place] [address] [place] MCV (RBC) [Entitic vol] 97.1 fL Normal 80.0-100.0 [facility] Comment on above: Order Comment: Speci men Type: BLOOD SPECIMENOrdering Facility: [facility] Address: [address] [place] [address] Performed By: #### 5 7021-8 ####[facility] LABCLIA [id number] [address], [place] [address] [place] Monocytes (Bld) [#/Vol] 0.60 10*3/uL Normal <0.87 [facility] Comment on above: Order Comment: Speci men Type: BLOOD SPECIMENOrdering Facility: [facility] Address: [address] [place] [address] Performed By: #### 5 7021-8 ####[facility] LABIA [id number] [address], [place] [address] [place] Monocytes/100 WBC (Bld) 8.9 % Normal [facility] Comment on above: Order Comment: Speci men Type: BLOOD SPECIMENOrdering Facility: [facility] Address: [address] [place] [address] Performed By: #### 5 7021-8 ####[facility] LABCLIA [id number] [place] [address] [place] Neutrophils (Bld) [#/Vol] 4.81 10*3/uL Normal 1.45-7.50 [facility] Comment on above: Order Comment: Speci men Type: BLOOD SPECIMENOrdering Facility: [facility] Address: [address] [place] [address] Performed By: #### 5 7021-8 ####[facility] LABCLIA [id number] [place] [address] [place] Neutrophils/100 WBC (Bld) 71.5 % Normal [facility] Comment on above: Order Comment: Speci men Type: BLOOD SPECIMENOrdering Facility: [facility] Address: [address] [place] [address] Performed By: #### 5 7021-8 ####[facility] LABCLIA [id number] [place] [address] [place] Nucleated RBC (Bld) [#/Vol] 10*3/uL Normal <0.01 [facility] Comment on above: Order Comment: Speci men Type: BLOOD SPECIMENOrdering Facility: [facility] Address: [address] [place] [address] Performed By: #### 5 7021-8 ####[facility] LABCLIA [id number] [place] [address] [place] Nucleated RBC/100 WBC (Bld) [Ratio] 0.0 /100 WBC Normal [facility] Comment on above: Order Comment: Speci men Type: BLOOD SPECIMENOrdering Facility: [facility] Address: [address] [place] [address] Performed By: #### 5 7021-8 ####[facility] LABCLIA [id number] [place] [address] [place] Platelet mean volume (Bld) [Entitic vol] 12.6 fL Normal 9.0-12.7 [facility] Comment on above: Order Comment: Speci men Type: BLOOD SPECIMENOrdering Facility: [facility] Address: [address] [place] [address] Performed By: #### 5 7021-8 ####[facility] LABCLIA [id number] [place] [address] [place] Platelets (Bld) [#/Vol] 188 10*3/uL Normal 150-400 [facility] Comment on above: Order Comment: Speci men Type: BLOOD SPECIMENOrdering Facility: [facility] Address: [address] [place] [address] Performed By: #### 5 7021-8 ####[facility] LABIA [id number] [place] [address] [place] RBC (Bld) [#/Vol] 4.48 10*6/uL Normal 3.90-5.20 [facility] Comment on above: Order Comment: Speci men Type: BLOOD SPECIMENOrdering Facility: [facility] Address: [address] [place] [address] Performed By: #### 5 7021-8 ####[facility] LABIA [id number] [place] [address] [place] WBC (Bld) [#/Vol] 6.73 10*3/uL Normal 3.70-11.00 [facility] Comment on above: Order Comment: Speci men Type: BLOOD SPECIMENOrdering Facility: [facility] Address: [address] [place] [address] Performed By: #### 5 7021-8 ####[facility] [id number] [address] [place] CNOVon 07-23-2025 CNOV Office Visit (FAMPWS ) RAJENDRA LUCERO ([id number]) 1955 F Date Time Provider Department 07/23/25 12:00 PM PHUC MARTINES FAMPWS During your visit today, we recorded the following information about you: Temperature Pulse Respiration Blood pressure 97 degrees 64/minute 24/minute 110/60 Weight 109.8 kg Phuc Martines DO 07/26/2025 8:18 AM Signed CC: Rajendra Lucero is a 69 year old female who presents to the office for follow up HPI: HTN, recently controlled, no further dizziness. No chest pain/pressure. Has chronic dyspnea. No new edema or SINHA's or syncope symptoms. IFG, dyslipidemia, knows needs to work on weight loss efforts, is currently diet controlled She has had a lot of stress with her passing away recently and wondering is this affected her. Feels she is coping okay. Has support from her children- in the last 6 months her daughter has moved in with her to help her. COPD oxygen dependent, stage 3, chronic hypoxia, seeing Protection Analyst- using her inhalers as prescribed. Was in the hospital recently a few months ago for flare up of symptoms Atrial fibrillation, recently diagnosed, seeing and managed by Marine Cargo Specialist, no new symptoms. She is taking Eliquis medication as prescribed without bleeding SE Has some fatigue symptoms and brain fog symptoms PAST MEDICAL HISTORY Diagnosis Date Atrial flutter (HCC) CHF (congestive heart failure) ([facility]) Chronic hypoxemic respiratory failure (HCC) COPD (chronic obstructive pulmonary disease) ([facility]) 02/03/2010 Coronary artery disease No UT, CHF. No heart cath. Diverticulosis of colon [...] IMPACTED TOOTH - COMPLETELY BONY WISDOM TEETH Social History: SOCIAL HISTORY[1] FAMILY HISTORY Problem Relation Age of Onset Cancer Father BLADDER COPD Mother other (Alcoholic) Mother associated with sepsis. Hypertension Maternal Grandmother Thyroid Maternal Grandmother Current Outpatient prescriptions: potassium chloride ER (KLOR-CON) 20 mEq tablet Take 1 tablet by mouth three times a day. furosemide (LASIX) 40 mg tablet Take 1 tablet by mouth two times a day. roflumilast (DALIRESP) 250 mcg tablet Take 1 tablet by mouth once daily. dilTIAZem CD (CARDIZEM CD, CARTIA XT) 180 mg 24 hr capsule Take 1 capsule by mouth every 12 hours. atorvastatin (LIPITOR) 40 mg tablet Take 40 mg by mouth once daily. FARXIGA 10 mg tablet Take 10 mg by mouth every morning. apixaban (ELIQUIS) 5 mg tab(s) Take 5 mg by mouth two times a day. metoprolol tartrate, short acting, (LOPRESSOR) 50 mg tablet Take 50 mg by mouth two times a day. mecobalamin (B12 ACTIVE ORAL) Take 1,000 mcg by mouth once daily. cinnamon bark (CINNAMON ORAL) Take by mouth once daily. albuterol HFA (PROVENTIL HFA, VENTOLIN HFA) 90 mcg/actuation inhaler Inhale 2 Puffs as instructed every 6 hours as needed for wheezing/shortness of breath. pncrdhsipxx-sroodxpaw-yczrfja r (TRELEGY ELLIPTA) 200-62.5-25 mcg inhalation powder [...] Take 1 tablet by mouth once daily. Allergies: ALLERGIES Allergen Reactions Aleve [Naproxen] Hives Hives, edema of hands within 1 hour of use Nitrofurantoin Rash ROS: See HPI PE: 07/23/25 1157 BP: 110/60 Pulse: 64 Resp: 24 Temp: 36.1 ?C (97 ?F) TempSrc: Right Tympanic Weight: 109.8 kg (242 lb) Gen: AANDOX3, NAD, non-toxic appearing HEENT: PERRLA, wearing glasses, EOMs intact b/l, nares without drainage, pharynx without erythema, exudate, lesions, or drainage. Uvula midline. Neck: No L (more content not included)... Normal [facility] Comprehensive metabolic 2000 panelon 07-23-2025 Albumin [Mass/Vol] 4.5 g/dL Normal 3.9-4.9 [facility] Comment on above: Order Comment: Speci men Type: BLOOD SPECIMENOrdering Facility: [facility] Address: [address] [place] [address] Performed By: #### 2 4323-8, 2324-2, 44426-4, 3016-3 ####[facility] LABCLIA [id number] [place] [address] [place] ALP [Catalytic activity/Vol] 75 U/L Normal 34-123 [facility] Comment on above: Order Comment: Speci men Type: BLOOD SPECIMENOrdering Facility: [facility] Address: [address] [place] [address] Performed By: #### 2 4323-8, 2324-2, 82348-7, 3016-3 ####[facility] LABIA [id number] [place] [address] [place] ALT [Catalytic activity/Vol] 20 U/L Normal 7-38 [facility] Comment on above: Order Comment: Speci men Type: BLOOD SPECIMENOrdering Facility: [facility] Address: [address] [place] [address] Performed By: #### 2 4323-8, 2324-2, 08944-7, 3016-3 ####[facility] LABCLIA [id number] [place] [address] [place] Anion gap [Moles/Vol] 15 mmol/L Normal 8-15 [facility] Comment on above: Order Comment: Speci men Type: BLOOD SPECIMENOrdering Facility: [facility] Address: [address] [place], [place] [address] Performed By: #### 2 4323-8, 2324-2, 03208-4, 3016-3 ####[facility] LABCLIA [id number] [address] [address] [place] AST [Catalytic activity/Vol] 25 U/L Normal 13-35 [facility] Comment on above: Order Comment: Speci men Type: BLOOD SPECIMENOrdering Facility: [facility] Address: [address] [place], [place] [address] Performed By: #### 2 4323-8, 2324-2, 16068-1, 3016-3 ####[facility] LABCLIA [id number] [place] [address] [place] Bilirubin [Mass/Vol] 0.6 mg/dL Normal 0.2-1.3 [facility] Comment on above: Order Comment: Speci men Type: BLOOD SPECIMENOrdering Facility: [facility] Address: [address] [place], [place] [address] Performed By: #### 2 4323-8, 2324-2, 13306-2, 3016-3 ####[facility] LABCLIA [id number] [place] [address] [place] Calcium [Mass/Vol] 9.8 mg/dL Normal 8.5-10.2 [facility] Comment on above: Order Comment: Speci men Type: BLOOD SPECIMENOrdering Facility: [facility] Address: [address] [place], [place] [address] Performed By: #### 2 4323-8, 2324-2, 52724-9, 3016-3 ####[facility] LABCLIA [id number] [address] [address] [place] Chloride [Moles/Vol] 96 mmol/L Low 98-107 [facility] Comment on above: Order Comment: Speci men Type: BLOOD SPECIMENOrdering Facility: [facility] Address: [address] [place], [place] [address] Performed By: #### 2 4323-8, 2324-2, 08677-9, 3016-3 ####[facility] LABCLIA [id number] [address] [address] [place] CO2 [Moles/Vol] 33 mmol/L High 22-30 [facility] Comment on above: Order Comment: Speci men Type: BLOOD SPECIMENOrdering Facility: [facility] Address: [address] [place] [address] Performed By: #### 2 4323-8, 2324-2, 45564-8, 3016-3 ####[facility] LABIA [id number] [address] [address] [place] Creatinine [Mass/Vol] 0.66 mg/dL Normal 0.58-0.96 [facility] Comment on above: Order Comment: Speci men Type: BLOOD SPECIMENOrdering Facility: [facility] Address: [address] [place] [address] Performed By: #### 2 4323-8, 2324-2, 60218-7, 3016-3 ####[facility] LABIA [id number] [place] [address] [place] eGFRcr SerPlBld CKD-EPI 2020 96 mL/min/1.73m??? Normal >=60 [facility] Comment on above: Order Comment: Speci men Type: BLOOD SPECIMENOrdering Facility: [facility] Address: [address] [place] [address] Result Comment: Marcia mated Glomerular Filtration Rate [...] reflect actual GFR. Performed By: #### 2 4323-8, 2324-2, 26794-5, 3016-3 ####[facility] LABCLIA [id number] [address] [address] [place] Glucose [Mass/Vol] 95 mg/dL Normal 74-99 [facility] Comment on above: Order Comment: Speci men Type: BLOOD SPECIMENOrdering Facility: [facility] Address: [address] [place] [address] Result Comment: The [place] Diabetes Association (ADA) provides guidance for cutoff [...] Standards of Medical Care in Diabetes 2016, [place] [employer]. Diabetes Care. 2016.39(Suppl 1). Performed By: #### 2 4323-8, 2324-2, 65827-6, 3016-3 ####[facility] LABCLIA [id number] [address] [address] [place] Potassium [Moles/Vol] 4.4 mmol/L Normal 3.7-5.1 [facility] Comment on above: Order Comment: Speci men Type: BLOOD SPECIMENOrdering Facility: [facility] Address: [address] [place] [id number] Performed By: #### 2 4323-8, 2324-2, 80486-0, 3016-3 ####[facility] LABIA [id number] [address] [address] [place] Protein [Mass/Vol] 7.6 g/dL Normal 6.3-8.0 [facility] Comment on above: Order Comment: Speci men Type: BLOOD SPECIMENOrdering Facility: [facility] Address: [address] [place], [place] [address] Performed By: #### 2 4323-8, 2324-2, 47290-4, 3016-3 ####[facility] LABCLIA [id number] [address] [address] [place] Sodium [Moles/Vol] 144 mmol/L Normal 136-144 [facility] Comment on above: Order Comment: Speci men Type: BLOOD SPECIMENOrdering Facility: [facility] Address: [address] [place] [address] Performed By: #### 2 4323-8, 2324-2, 81750-0, 3016-3 ####[facility] LABCLIA [id number] [address] [address] [place] Urea nitrogen [Mass/Vol] 16 mg/dL Normal 7-21 [facility] Comment on above: Order Comment: Speci men Type: BLOOD SPECIMENOrdering Facility: [facility] Address: [address] [place] [address] Performed By: #### 2 4323-8, 2324-2, 05454-9, 3016-3 ####[facility] LABCLIA [id number] [place] [address] [place] GGT SerPl-cCncon 07-23-2025 Gamma glutamyl transferase [Catalytic activity/Vol] 23 U/L Normal 6-46 [facility] Comment on above: Order Comment: Speci men Type: BLOOD SPECIMENOrdering Facility: [facility] Address: [address] [place], [place] [address] Performed By: #### 2 4323-8, 2324-2, 73382-7, 3016-3 ####[facility] LABCLIA [id number] [address] [address] [place] HbA1c (Bld)on 07-23-2025 Average glucose Estimated from glycated hemoglobin (Bld) [Mass/Vol] 117 mg/dL Normal [facility] Comment on above: Order Comment: Speci men Type: BLOOD SPECIMENOrdering Facility: [facility] Address: [address] [place] [address] Result Comment: eAG: (Estimated average glucose) is a calculated value from HgbA1c and is guest services representative of the average blood glucose level in the last 2-3 month period. Performed By: #### 5 5454-3 ####[facility] LABCLIA [id number] [place] [address] [place] HbA1c (Bld) [Mass fraction] 5.7 % High 4.3-5.6 [facility] Comment on above: Order Comment: Xiao men Type: BLOOD SPECIMENOrdering Facility: [facility] Address: [address] [place] [address] Result Comment: [place] Diabetes Association guidelines indicate that patients with HgbA1c in the range 5.7-6.4% are at increased risk for development of diabetes, and intervention by lifestyle modification may be beneficial. HgbA1c greater or equal to 6.5% is considered diagnostic of diabetes. Performed By: #### 5 5454-3 ####[facility] LABCLIA [id number] [place] [address] [place] Iron and Iron binding capaci ty panelon 07-23-2025 Iron [Mass/Vol] 76 ug/dL Normal 41-186 [facility] Comment on above: Order Comment: Xiao men Type: BLOOD SPECIMENOrdering Facility: [facility] Address: [address] [place] [address] Performed By: #### 2 4323-8, 2324-2, 23895-6, 3016-3 ####[facility] LABCLIA [id number] [place] [address] [place] Iron binding capacity [Mass/Vol] 403 ug/dL High 232-386 [facility] Comment on above: Order Comment: Saniyai men Type: BLOOD SPECIMENOrdering Facility: [facility] Address: [address] [place] [address] Performed By: #### 2 4323-8, 2324-2, 79445-5, 3016-3 ####[facility] LABCLIA [id number] [place] [address] [place] Iron/TIBC [Molar ratio] 18.9 % Normal 15.0-57.0 [facility] Comment on above: Order Comment: Speci men Type: BLOOD SPECIMENOrdering Facility: [facility] Address: [address] [place] [address] Performed By: #### 2 4323-8, 2324-2, 89584-5, 3016-3 ####[facility] LABCLIA [id number] [place] [address] [place] TSH SerPl-aCncon 07-23-2025 TSH Qn 2.330 m[IU]/L Normal 0.270-4.20 0 [facility] Comment on above: Order Comment: Speci men Type: BLOOD SPECIMENOrdering Facility: [facility] Address: [address] [place] [address] Performed By: #### 2 4323-8, 2324-2, 18670-7, 3016-3 ####[facility] LABCLIA [id number] [place] [address] [place] Vit B12 SerPl-mCncon 025 Cobalamin (Vitamin B12) [Mass/Vol] 749 pg/mL Normal 232-1245 [facility] Comment on above: Order Comment: Speci men Type: BLOOD SPECIMENOrdering Facility: [facility] Address: [address] [place] [address] Performed By: #### 6 768-6, 2132-9 ####[facility] LABCLIA [id number] [place] [address] [place] Cardioversion Reporton 06-24 Cardioversion Report Normal [facility] Cardioversion reportOrdered By: Reza Elena on 06-24-2025 Study report [facility] [address] [place] [address] MR#: [id number] Acct: [id number] Name: RAJENDRA LUCERO Rep #: [id number] 04 : 1955 69 From: Reza osei MD Primary Care: Dr. Phuc Martines DO [facility] tus: REG SDC Referring Dr: Reza Elena MD Sex: F C Cardioversion Cardioversion: Patient is a 69-year-old white female with paroxysmal atrial flutter/fibrillation. Patient been evaluated by the EP service and was felt notto be a candidate for RF ablation due to her significant pulmonary insufficiencyand obesity. She is on home oxygen therapy at 3 L/min. And when the patient isambulatory she has to increase it to 6 L/min. The patient was evaluated in our office June 08 and subsequently was brought to the Operations Team Leader recovery area for direct-current cardioversion. Patient carriesa history of being loaded with amiodarone for 1 month and she has been on uninterrupted Eliquis for 6 to 8 weeks. The patient is ECG shows atrial flutterwith a controlled ventricular response. The QT interval was measured by the machine is prolonged but this is inaccurate due to the flutter waves. The patient received anesthesia by Dr. Yonathan Gonzalez 60 mg of IV propofol once thepatient was documented to be appropriately sedated a single 200 J synchronized shock was delivered. The patient converted to his normal sinus rhythm with a heart rate of 76 bpm. There were no significant ST or T wave changes and her QTinterval measured is normal. The patient awoke from the procedure there were no obvious neurologic deficits. The patient will follow-up in the office with an ECG in 1 week. The plan is to continue the patient's and at 200 mg daily for another month. If she remains insinus rhythm we will decrease the dose to 100 mg daily in anticipation of discontinuing it at 6 months. Should the patient revert to atrial fibrillation we would treat her with rate control and long-term oral anticoagulation. She has an elevated BMD2UU4-ORIe score and will need to be maintained on long-term oral anticoagulation. Patient will have the ECG done in 1 week, follow-up with advanced practitioner in 3 to 4 weeks, and see Dr. Elena at 6 months. This was discussed in detail with the patient and her daughter. Procedures Coronary Therapeutic CF Procedures 92xxx-93xxx: 72835 Cardioversion electric ext 06/24/25 1241 Date _ Reza Elena MD CC: Dr. Phuc Martines, DO; Dr. Reza Elena MD ~ Date Dictated: 06/24/25 1237 Date Transcribed: 06/24/251236 Power Electronics Engineer: Signed [facility] Work Phone: Procedure Reporton 5 Procedure Report Normal [facility] Anion gap in Serum or Plasma Ordered By: Reza Elena on 06-22-2025 Anion gap [Moles/Vol] 12 mmol/L 5-15 [facility] BUN/creatinine ratioOrdered By: Reza Elena on 06-22-2025 Urea nitrogen/Creatinine [Mass ratio] 21.0 mg/mg High 10-20 [facility] Basic Metabolic Profile (BMP )on 06-22-2025 BUN/CRE 21.0 RATIO High 10-20 [facility] Comment on above: Performed By: #### L 500.2500 ####[facility] [address] [place], [address] Calcium [Mass/Vol] 9.8 mg/dL Normal 7.6-11.0 [facility] Comment on above: Performed By: #### L 500.2500 ####[facility] [address] [place], [address] Chloride [Moles/Vol] 101 mmol/L Normal 98-108 [facility] Comment on above: Performed By: #### L 500.2500 ####[facility] [address] [place], [address] CO2 [Moles/Vol] 34.1 mmol/L High 21.0-32.0 [facility] Comment on above: Performed By: #### L 500.2500 ####[facility] [address] [place], [address] Creatinine [Mass/Vol] 0.71 mg/dL Normal 0.70-1.20 [facility] Comment on above: Performed By: #### L 500.2500 ####[facility] [address] [place], [address] GAP 12 Normal 5-15 [facility] Comment on above: Performed By: #### L 500.2500 ####[facility] [address] [place], [address] GFR/1.73 sq M.predicted among non-blacks MDRD (S/P/Bld) [Vol rate/Area] 93 mL/min/{1.73_m2} Normal >60 [facility] Comment on above: Result Comment: mL/m in/1.73m2 CKD-EPI Creatinine Equation (2020) Performed By: #### L 500.2500 ####[facility] [address] [place], [address] Glucose [Mass/Vol] 106 mg/dL High 70-99 [facility] Comment on above: Performed By: #### L 500.2500 ####[facility] [address] [place], [address] Potassium [Moles/Vol] 3.8 mmol/L Normal 3.3-5.1 [facility] Comment on above: Performed By: #### L 500.2500 ####[facility] [address] [place], [address] Sodium [Moles/Vol] 147 mmol/L High 133-145 [facility] Comment on above: Performed By: #### L 500.2500 ####[facility] [address] [place], [address] Urea nitrogen [Mass/Vol] 15 mg/dL Normal 4-19 [facility] Comment on above: Performed By: #### L 500.2500 ####[facility] [address] [place], [address] Carbon dioxide, total [Moles /volume] in Central venous bloodOrdered By: Reza Elena on 06-22-2025 CO2 [Moles/Vol] 34.1 mmol/L High 21.0-32.0 [facility] Chloride assayOrdered By: Kyra Elena on 06-22-2025 Chloride [Moles/Vol] 101 mmol/L 98-108 [facility] Glomerular filtration rate ( GFR) estimation/1.73 sq m using serum, plasma, or whole bOrdered By: Reza Elena on 06-22-2025 GFR/1.73 sq M.predicted among non-blacks MDRD (S/P/Bld) [Vol rate/Area] 93 mL/min/{1.73_m2} >60 [facility] Comment on above: mL/min/1.73m2 CKD-EP I Creatinine Equation (2020) Potassium measurement (mass/ volume)Ordered By: Reza Elena on 06-22-2025 Potassium (Unsp spec) [Mass/Vol] 3.8 mmol/L 3.3-5.1 [facility] Serum creatinine measurement (mass/volume)Ordered By: Reza Elena on 06-22-2025 Creatinine [Mass/Vol] 0.71 mg/dL 0.70-1.20 [facility] Serum glucose measurement (m ass/volume)Ordered By: Reza Elena on 06-22-2025 Glucose [Mass/Vol] 106 mg/dL High 70-99 [facility] Serum or plasma calcium tad urement (mass/volume)Ordered By: Reza Elena on 06-22-2025 Calcium [Mass/Vol] 9.8 mg/dL 7.6-11.0 [facility] Serum or plasma urea nitroge n measurement (mass/volume)Ordered By: Reza Elena on 06-22-2025 Urea nitrogen [Mass/Vol] 15 mg/dL 4-19 [facility] Sodium levelOrdered By: Jose Elena on 06-22-2025 Sodium [Moles/Vol] 147 mmol/L High 133-145 [facility] CNPNon 06-21-2025 CNPN Telephone ([facility]) RAJENDRA LUCERO ([id number]) 1955 F Date Time Provider Department 06/21/25 RAJENDRA GOODMAN During your visit today, we recorded the following information about you: [place] LPN 06/21/2025 10:17 AM Addendum Opened in error. Allergies As of Date: 06/21/2025 Noted Allergy Reaction ALEVE (NAPROXEN) 05/31/2020 4 - Hives Comments: Hives, edema of hands within 1 hour of use NITROFURANTOIN 04/23/2025 2 - Rash Date Reviewed: 06/04/2025 Reviewed by: Rajendra Goodman, CHILD CARE CENTER ASSISTANT DIRECTOR.PRACTICE NURSE - Fully Assessed Prescriptions as of 06/21/2025 - furosemide (LASIX) 40 mg tablet Take 1 tablet by mouth two times a day. - roflumilast (DALIRESP) 250 mcg tablet Take 1 tablet by mouth once daily. - dilTIAZem CD (CARDIZEM CD, CARTIA XT) 180 mg 24 hr capsule Take 1 capsule by mouth every 12 hours. - atorvastatin (LIPITOR) 40 mg tablet Take 40 mg by mouth once daily. - FARXIGA 10 mg tablet Take 10 mg by mouth every morning. - apixaban (ELIQUIS) 5 mg tab(s) Take [...] as needed for wheezing/shortness of breath. - oujsrcutsiy-ertlhqzap-iytercu r (TRELEGY ELLIPTA) 200-62.5-25 mcg inhalation powder Inhale 1 Puff as instructed once daily. - triamcinolone acetonide (KENALOG) 0.5 % cream [...] at night and 6L with exertion - COMPOUNDED PRESCRIPTION Please dispense nebulizer and supply kit, including tubing, mouth piece, and hose. Assoc diagnosis: J44.9. Dispense: 1 each, Refills: 99. - ASCORBIC ACID/BIOFLAVONOIDS (SIVAN C ORAL) Take 1 capsule by mouth once daily. - COMPOUNDED PRESCRIPTION 3.5L of O2 at night and 6L with exertion. - multivitamin tablet Take 1 tablet by mouth once daily. Problem List As Of Date 06/21/2025 Noted Resolved BENIGN HYPERTENSION [I10] 07/07/2008 Tobacco [...] [Z12.11] 08/27/2018 10/13/2019 Actinic keratosis [L57.0] 05/19/2019 Medicare annual wellness visit, subsequent [Z00*05/19/2019 Chronic respiratory failure with hypoxia (HCC) *10/13/2019 Lightheaded [R42] 01/30/2022 Vitamin D deficiency [E55.9] 01/30/2022 Dyslipidemia [E78.5] 01/30/2022 Intertrigo [L30.4] 05/01/2022 Chronic obstructive pulmonary disease (HCC) [J4*02/07/2023 Acute bronchitis with chronic obstructive pulmo*03/13/2024 Fatigue [R53.83] 03/13/2024 Thoracic aortic ectasia (HCC) [I77.810] 03/13/2024 Hair thinning [L65.9] 01/20/2025 Encounter Status:Closed by [place] on 06/21/25 Normal [facility] BMP with eGFRon 06-15-2025 AGE 69 years Normal [facility] Comment on above: Performed By: #### 2 [id number] #### [facility],[address] [place] [address] Anion gap [Moles/Vol] 4 mmol/L Low 10 - 20 [facility] Comment on above: Performed By: #### 2 25835 #### [facility],[address] [place], [place] [id number] BMP with eGFR Normal [facility] Comment on above: Result Comment: BASI C METABOLIC PANEL Performed By: #### 2 16014 #### [facility],[address] [place], [place] [id number] Calcium [Mass/Vol] 9.2 mg/dL Normal 8.5 - 10.1 [facility] Comment on above: Performed By: #### 2 53556 #### [facility],[address] [place] [address] Chloride [Moles/Vol] 104 mmol/L Normal 98 - 107 [facility] Comment on above: Performed By: #### 2 03618 #### [facility],[address] [place] [address] CO2 [Moles/Vol] 35.5 mmol/L High 21.0 - 32.0 [facility] Comment on above: Performed By: #### 2 05462 #### [facility],[address] [place] [address] Creatinine [Mass/Vol] 0.76 mg/dL Normal 0.55 - 1.02 [facility] Comment on above: Result Comment: VERI FIED BY REPEAT ANALYSIS Performed By: #### 2 58758 #### [facility],[address] [place] [address] GFR/1.73 sq M.predicted among non-blacks MDRD (S/P/Bld) [Vol rate/Area] mL/min/{1.73_m2} Normal 60 - 999 [facility] Comment on above: Performed By: #### 2 08442 #### [facility],[address] [place] [address] Result Comment: ACCO RDING TO THE NATIONAL KIDNEY DISEASE EDUCATION PROGRAM(NKDE), A NORMAL eGFR IS A VALUE GREATER THAN OR EQUAL TO 60 ML/MIN/1.73 SQ METERS. CHRONIC KIDNEY DISEASE: <60mL/MIN/1.73 SQ METERS KIDNEY FAILURE: <15mL/MIN/1.73 SQ METERS THIS TEST SHOULD ONLY BE USED FOR PATIENTS 18 YEARS OF AGE AND OLDER. Glucose [Mass/Vol] 99 mg/dL Normal 74 - 106 [facility] Comment on above: Performed By: #### 2 65349 #### [facility],[address] [place], [place] [id number] Potassium [Moles/Vol] 3.9 mmol/L Normal 3.5 - 5.1 [facility] Comment on above: Performed By: #### 2 93881 #### [facility],[address] [place] [address]25 Sodium [Moles/Vol] 140 mmol/L Normal 136 - 145 [facility] Comment on above: Performed By: #### 2 55366 #### [facility],[address] [place] [address] 35429 Urea nitrogen [Mass/Vol] 13 mg/dL Normal 7 - 18 [facility] Comment on above: Performed By: #### 2 49581 #### [facility],[address] [place] [address] CNPNon 06-15-2025 CNPN Telephone ([facility]) RAJENDRA LUCERO ([id number]) 1955 F Date Time Provider Department 06/15/25 RAJENDRA GOODMAN During your visit today, we recorded the following information about you: Hodan Quinn MA 06/15/2025 10:50 AM Signed Sherrell from [facility] phoned regarding order of NIV. Please return call [phone]. No other details were given. Sherrell aware nurse not available this morning. JESSICA Molina Linda, MA 06/15/2025 1:42 PM Signed Sherrell from [facility] asking if Paige could call her concerning an order that needs to be signed. Patricia Ha MA 06/15/2025 3:43 PM Signed Called and gave provider info regarding addendum to note for medicare coverage. Completed and faxed. Patricia Ha MA Allergies As of Date: 06/15/2025 Noted Allergy Reaction ALEVE (NAPROXEN) 05/31/2020 4 - Hives Comments: Hives, edema of hands within 1 hour of use NITROFURANTOIN 04/23/2025 2 - Rash Date Reviewed: 06/04/2025 Reviewed by: Rajendra Goodman APRN.PRACTICE NURSE - Fully Assessed Reason for Visit: Orders [681] Cmt: NIV Prescriptions as of 06/15/2025 - furosemide (LASIX) 40 mg tablet Take 1 tablet by mouth two times a day. - roflumilast (DALIRESP) 250 mcg tablet Take 1 tablet by mouth once daily. - dilTIAZem CD (CARDIZEM CD, CARTIA XT) 180 mg 24 hr capsule Take 1 capsule by mouth every 12 hours. - atorvastatin (LIPITOR) 40 mg tablet Take 40 mg by mouth once daily. - FARXIGA 10 mg tablet Take 10 mg by mouth every morning. - apixaban (ELIQUIS) 5 mg tab(s) Take [...] as needed for wheezing/shortness of breath. - rmtnyzeltir-jtyowpnph-khihrrn r (TRELEGY ELLIPTA) 200-62.5-25 mcg inhalation powder Inhale 1 Puff as instructed once daily. - triamcinolone acetonide (KENALOG) 0.5 % cream [...] at night and 6L with exertion - COMPOUNDED PRESCRIPTION Please dispense nebulizer and supply kit, including tubing, mouth piece, and hose. Assoc diagnosis: J44.9. Dispense: 1 each, Refills: 99. - ASCORBIC ACID/BIOFLAVONOIDS (SIVAN C ORAL) Take 1 capsule by mouth once daily. - COMPOUNDED PRESCRIPTION 3.5L of O2 at night and 6L with exertion. - multivitamin tablet Take 1 tablet by mouth once daily. Problem List As Of Date 06/15/2025 Noted Resolved BENIGN HYPERTENSION [I10] 07/07/2008 Tobacco [...] [Z12.11] 08/27/2018 10/13/2019 Actinic keratosis [L57.0] 05/19/2019 Medicare annual wellness visit, subsequent [Z00*05/19/2019 Chronic respiratory failure with hypoxia (HCC) *10/13/2019 Lightheaded [R42] 01/30/2022 Vitamin D deficiency [E55.9] 01/30/2022 Dyslipidemia [E78.5] 01/30/2022 Intertrigo [L30.4] 05/01/2022 Chronic obstructive pulmonary disease (HCC) [J4*02/07/2023 Acute bronchitis with chronic obstructive pulmo*03/13/2024 Fatigue [R53.83] 03/13/2024 Thoracic aortic ectasia (HCC) [I77.810] 03/13/2024 Hair thinning [L65.9] 01/20/2025 Encounter Status:Closed by PATRICIA HA [facility]15/25 [facility] Tele[facility] (PULMWS) RAJENDRA LUCERO ([id number]) 1955 F Date Time Provider Department 06/14/25 RAJENDRA GOODMAN During your visit today, we recorded the following information about you: Jeanine Bedolla LPN 06/14/2025 10:32 AM Signed Kallie from [facility] called and would like to get some info faxed over for this patients NIV just to cover their bases as she is supposed to be discharged home this week. Fax number [phone] Attn: Kallie. YULIET Enriquez Brittney, HERRERA 06/14/2025 11:12 AM Signed Call received from [facility] in [place]. They are requesting most recent ABGs done within the last 90 days in order to bill Medicare for the NIV. According to notes, ABGs were done during recent hospitalization but unsure if it was at [facility] or [facility]. Please fax ABGs to [facility] at: . Sierra Ludwig RN June 14, 2025 11:12 AM Patricia Ha MA 06/15/2025 3:06 PM Signed Faxed as requested. Patricia Ha MA Allergies As of Date: 06/14/2025 Noted Allergy Reaction ALEVE (NAPROXEN) 05/31/2020 4 - Hives Comments: Hives, edema of hands within 1 hour of use NITROFURANTOIN 04/23/2025 2 - Rash Date Reviewed: 06/04/2025 Reviewed by: Rajendra Goodman APRN.PRACTICE NURSE - Fully Assessed Reason for Visit: Results [95] Prescriptions as of 06/15/2025 - furosemide (LASIX) 40 mg tablet Take 1 tablet by mouth two times a day. - roflumilast (DALIRESP) 250 mcg tablet Take 1 tablet by mouth once daily. - dilTIAZem CD (CARDIZEM CD, CARTIA XT) 180 mg 24 hr capsule Take 1 capsule by mouth every 12 hours. - atorvastatin (LIPITOR) 40 mg tablet Take 40 mg by mouth once daily. - FARXIGA 10 mg tablet Take 10 mg by mouth every morning. - apixaban (ELIQUIS) 5 mg tab(s) Take [...] as needed for wheezing/shortness of breath. - huynoqrmeju-qmysopnco-orjwrio r (TRELEGY ELLIPTA) 200-62.5-25 mcg inhalation powder Inhale 1 Puff as instructed once daily. - triamcinolone acetonide (KENALOG) 0.5 % cream [...] at night and 6L with exertion - COMPOUNDED PRESCRIPTION Please dispense nebulizer and supply kit, including tubing, mouth piece, and hose. Assoc diagnosis: J44.9. Dispense: 1 each, Refills: 99. - ASCORBIC ACID/BIOFLAVONOIDS (SIVAN C ORAL) Take 1 capsule by mouth once daily. - COMPOUNDED PRESCRIPTION 3.5L of O2 at night and 6L with exertion. - multivitamin tablet Take 1 tablet by mouth once daily. Problem List As Of Date 06/14/2025 Noted Resolved BENIGN HYPERTENSION [I10] 07/07/2008 Tobacco [...] [Z12.11] 08/27/2018 10/13/2019 Actinic keratosis [L57.0] 05/19/2019 Medicare annual wellness visit, subsequent [Z00*05/19/2019 Chronic respiratory failure with hypoxia (HCC) *10/13/2019 Lightheaded [R42] 01/30/2022 Vitamin D deficiency [E55.9] 01/30/2022 Dyslipidemia [E78.5] 01/30/2022 Intertrigo [L30.4] 05/01/2022 Chronic obstructive pulmonary disease (HCC) [J4*02/07/2023 Acute bronchitis with chronic obstructive pulmo*03/13/2024 Fatigue [R53.83] 03/13/2024 Thoracic aortic ectasia (HCC) [I77.810] 03/13/2024 Hair thinning [L65.9] 01/20/2025 Encounter Status:Closed by JEANINE BEDOLLA on 06/14/25 [facility] RAJ[facility] LUCERO ([id number]) 1955 F Date Time Provider Department 06/11/25 RAJENDRA GOODMAN During your visit today, we recorded the following information about you: Pito Izaguirre LPN 06/11/2025 1:08 PM Signed Patient called. Verified name and date of . States she is getting [facility] the jail, [facility] tomorrow. Patient understood NIV Machine through [facility]. Patient states that [facility] has not received an order for the NIV Machine. Patient is able to get calls on her cell phone at this time: . YULIET Flowers Kathleen, LPN 06/11/2025 1:14 PM Signed Noted. NIV orders faxed to [facility]. Lake Melvin LPN Allergies As of Date: 06/11/2025 Noted Allergy Reaction ALEVE (NAPROXEN) 05/31/2020 4 - Hives Comments: Hives, edema of hands within 1 hour of use NITROFURANTOIN 04/23/2025 2 - Rash Date Reviewed: 06/04/2025 Reviewed by: Rajendra Goodman, JAKI.[facility] - Fully Assessed Reason for Visit: Orders [681] Prescriptions as of 06/11/2025 - roflumilast (DALIRESP) 250 mcg tablet Take 1 tablet by mouth once daily. - dilTIAZem CD (CARDIZEM CD, CARTIA XT) 180 mg 24 hr capsule Take 1 capsule by mouth every 12 hours. - atorvastatin (LIPITOR) 40 mg tablet Take 40 mg by mouth once daily. - FARXIGA 10 mg tablet Take 10 mg by mouth every morning. - apixaban (ELIQUIS) 5 mg tab(s) Take [...] as needed for wheezing/shortness of breath. - ghefantydte-pnhbzzpbq-zicqfsc r (TRELEGY ELLIPTA) 200-62.5-25 mcg inhalation powder Inhale 1 Puff as instructed once daily. - triamcinolone acetonide (KENALOG) 0.5 % cream [...] at night and 6L with exertion - COMPOUNDED PRESCRIPTION Please dispense nebulizer and supply kit, including tubing, mouth piece, and hose. Assoc diagnosis: J44.9. Dispense: 1 each, Refills: 99. - ASCORBIC ACID/BIOFLAVONOIDS (SIVAN C ORAL) Take 1 capsule by mouth once daily. - COMPOUNDED PRESCRIPTION 3.5L of O2 at night and 6L with exertion. - multivitamin tablet Take 1 tablet by mouth once daily. Problem List As Of Date 06/11/2025 Noted Resolved BENIGN HYPERTENSION [I10] 07/07/2008 Tobacco [...] [Z12.11] 08/27/2018 10/13/2019 Actinic keratosis [L57.0] 05/19/2019 Medicare annual wellness visit, subsequent [Z00*05/19/2019 Chronic respiratory failure with hypoxia (HCC) *10/13/2019 Lightheaded [R42] 01/30/2022 Vitamin D deficiency [E55.9] 01/30/2022 Dyslipidemia [E78.5] 01/30/2022 Intertrigo [L30.4] 05/01/2022 Chronic obstructive pulmonary disease (HCC) [J4*02/07/2023 Acute bronchitis with chronic obstructive pulmo*03/13/2024 Fatigue [R53.83] 03/13/2024 Thoracic aortic ectasia (HCC) [I77.810] 03/13/2024 Hair thinning [L65.9] 01/20/2025 Encounter Status:Closed by [place] MELVIN on 06/11/25 Normal [facility] Cardiology Visit Reporton Cardiology Visit Report Normal [facility] CNOVon 06-04-2025 CNOV Office Visit (PULMWS ) RAJENDRA LUCERO ([id number]) 1955 F Date Time Provider Department 06/04/25 8:00 AM RAJENDRA GOODMAN PULMWS During your visit today, we recorded the following information about you: Pulse Respiration Blood pressure Weight 62/minute 24/minute 158/76 119 kg Rajendra Goodman, CHILD CARE CENTER ASSISTANT DIRECTOR.PRACTICE NURSE 06/15/2025 2:49 PM Addendum Pulmonary Medicine Patients name: Rajendra Palumbo PCP: Phuc Martines DO Recording using ambient [employer] software for draft documentation of the visit was discussed with the patient/authorized guest services representative; all questions welcomed and answered. Patient/authorized guest services representative agreed to proceed CC: hospital follow-up HPI: Rjaendra Lucero is a 69 year old female former 48-ictc-ydth smoker, quitting in 2008 with PMH significant for morbid obesity, severe COPD, chronic hypoxemic respiratory failure, CAD, HTN, and ROXY. Current therapy consists of Trelegy Ellipta with as needed albuterol/Duoneb. On supplemental O2. She presents today for hospital follow-up. ABRAHAM 02/2025 for hospital follow-up where she was treated for AFL. Had concern for ROXY. Sleep study ordered but she is opting to take care of heart rhythm issues first. She was hospitalized again 05/13-05/17 for acute respiratory failure in the setting of CHF and COPD exacerbation. Chest CTA negative for PE. Revealed mild vascular congestion. Diuretics increased. Also completed blood gas which showed PACO2 92%. Treated with Bipap and did not require intubation. She was discharged to alf on baseline O2. She had an updated chest xray earlier this week at her nursing facility d/t gradual worsening in respiratory symptoms. Xray showed patchy b/l infiltrates and a rt side pleural effusion. Currently on Cefdinir and Azithromycin with Duoneb multiple times a day. Lasix dose has been adjusted. Today, patient denies cough. No significant wheezing or chest tightness. Occasionally will note dyspnea at rest. Exertional dyspnea has not changed. She is compliant with supplemental O2. No recent fevers, chills, or night sweats. Has been having trouble with lower extremity edema despite diuretics. DME: Bruce 3.5 L at rest/nocturnal and 6L with activity PAST MEDICAL HISTORY Diagnosis Date Atrial flutter (HCC) CHF (congestive heart failure) ([facility]) Chronic hypoxemic respiratory failure ([facility]) COPD (chronic obstructive pulmonary disease) ([facility]) 02/03/2010 Coronary artery disease No UT, CHF. No heart cath. Diverticulosis of colon (without mention of hemorrhage) Essential hypertension, benign Fibrocystic breast Former smoker Internal hemorrhoids without mention of complication Leiomyoma of uterus, unspecified Obstructive sleep apnea Mild. Not prescribed CPAP, only 2L nasal O2. Allergies: Aleve [Naproxen] Hives Comment:Hives, edema of hands within 1 hour of use Nitrofurantoin Rash Medication List Accurate as of June 02, 2025 1:15 PM. If you have any questions, ask your nurse or doctor. CONTINUE taking these medications albuterol HFA 90 mcg/actuation inhaler Commonly known as: PROVENTIL HFA, VENTOLIN HFA Inhale 2 Puffs as instructed every 6 hours as needed for wheezing/shortness of breath. apixaban 5 mg tab(s) Commonly known as: ELIQUIS atorvastatin 40 mg tablet Commonly known as: LIPITOR B12 ACTIVE PO CINNAMON PO COMPOUNDED PRESCRIPTION COMPOUNDED PRESCRIPTION Please dispense nebulizer and supply kit, including tubing, mouth piece, and hose. Assoc diagnosis: J44.9. Dispense: 1 each, Refills: 99. dilTIAZem CD 180 mg 24 hr capsule Commonly known as: CARDIZEM CD, CARTIA XT SIVAN C ORAL FARXIGA 10 mg tablet Generic drug: dapagliflozin propanediol furosemide 40 mg tablet Commonly known as: [...] ER 20 mEq tablet Commonly known as: CHANDLER-MARY OLIVEIRA ELLIPTA 200-62.5-25 mcg inhalation powder Generic drug: jhriqymoksi-ntjrgpyne-ahzaumi r Inhale 1 Puff as instructed once daily. triamcinolone acetonide 0.5 % cream Commonly known as: KeNALog Apply 1 application to affected area two times a day as needed (foot rash, eczema). For rash/itching. Apply sparingly. Avoid face/skin fold. DATA: I personally reviewed and analyzed all labs, radiographs and available pulmonary function testing PFT: 02/2022 Spirometry indicates very severe obstruction. CXR: Last XR Chest - Impression Only XR CHEST 2V FRONTAL/LAT Exam End: 09/28/2022 1:22 PM (Final result) Impression: IMPRESSION: Overall findings unchanged. .. (more content not included)... Normal [facility] BMP with eGFRon 05-31-2025 AGE 69 years Normal [facility] Comment on above: Performed By: #### 2 94209 #### [place] [address] Anion gap [Moles/Vol] 4 mmol/L Low 10 - 20 [facility] Comment on above: Performed By: #### 2 55593 #### [facility],[address] [place] [address] BMP with eGFR Normal [facility] Comment on above: Result Comment: BASI C METABOLIC PANEL Performed By: #### 2 98188 #### [facility],[address] [place] [address] Calcium [Mass/Vol] 8.3 mg/dL Low 8.5 - 10.1 [facility] Comment on above: Performed By: #### 2 35870 #### [place] [address] Chloride [Moles/Vol] 104 mmol/L Normal 98 - 107 [facility] Comment on above: Performed By: #### 2 37134 #### [place] [id number] CO2 [Moles/Vol] 41.3 mmol/L Critically high 21.0 - 32.0 [facility] Comment on above: Result Comment: RESU LTS VERIFIED BY REPEAT ANALYSIS { CALLED TO HERRERA LESTER BY KG @ 1027 { READ BACK BY HERRERA LESTER RA @ 1022 Performed By: #### 2 35920 #### [facility],[address] [place] [address]3073 Creatinine [Mass/Vol] 0.76 mg/dL Normal 0.55 - 1.02 [facility] Comment on above: Performed By: #### 2 83729 #### [facility],[address] [place] [address] 36162 GFR/1.73 sq M.predicted among non-blacks MDRD (S/P/Bld) [Vol rate/Area] mL/min/{1.73_m2} Normal 60 - 999 [facility] Comment on above: Performed By: #### 2 26038 #### [facility],[address] [place] [address] Result Comment: ACCO RDING TO THE NATIONAL KIDNEY DISEASE EDUCATION PROGRAM(NKDE), A NORMAL eGFR IS A VALUE GREATER THAN OR EQUAL TO 60 ML/MIN/1.73 SQ METERS. CHRONIC KIDNEY DISEASE: <60mL/MIN/1.73 SQ METERS KIDNEY FAILURE: <15mL/MIN/1.73 SQ METERS THIS TEST SHOULD ONLY BE USED FOR PATIENTS 18 YEARS OF AGE AND OLDER. Glucose [Mass/Vol] 113 mg/dL High 74 - 106 [facility] Comment on above: Performed By: #### 2 44763 #### [facility],[address] [place] [address]66 Potassium [Moles/Vol] 3.5 mmol/L Normal 3.5 - 5.1 [facility] Comment on above: Performed By: #### 2 81808 #### [facility],[address] [place] [address] 24629 Sodium [Moles/Vol] 146 mmol/L High 136 - 145 [facility] Comment on above: Performed By: #### 2 47257 #### [facility],[address] [place] [address] 14076 Urea nitrogen [Mass/Vol] 11 mg/dL Normal 7 - 18 [facility] Comment on above: Performed By: #### 2 36659 #### [facility],[address] [place] [address] 52126 BMP with eGFRon 05-24-2025 AGE 69 years Normal [facility] Comment on above: Performed By: #### 2 20856 #### [facility],[address] [place] [address] 51700 Anion gap [Moles/Vol] 6 mmol/L Low 10 - 20 [facility] Comment on above: Performed By: #### 2 71922 #### [facility],[address] [place] [address] 46433 BMP with eGFR Normal [facility] Comment on above: Result Comment: BASI C METABOLIC PANEL Performed By: #### 2 78915 #### [facility],[address] [place] [address] 56318 Calcium [Mass/Vol] 8.7 mg/dL Normal 8.5 - 10.1 [facility] Comment on above: Performed By: #### 2 00542 #### [facility],[address] [place] [address] 59735 Chloride [Moles/Vol] 103 mmol/L Normal 98 - 107 [facility] Comment on above: Performed By: #### 2 19723 #### [facility],[address] [place] [address] 06879 CO2 [Moles/Vol] 42.1 mmol/L Critically high 21.0 - 32.0 [facility] Comment on above: Result Comment: { CA LLED TO NANCY SILVERMAN BY MY AT 10:12 { READ BACK BY NANCY SILVERMAN RA MY AT 10:12 Performed By: #### 2 66195 #### [facility],[address] [place] [address] 17236 Creatinine [Mass/Vol] 0.92 mg/dL Normal 0.55 - 1.02 [facility] Comment on above: Performed By: #### 2 04063 #### [facility],[address] [place] [address] 54981 GFR/1.73 sq M.predicted among non-blacks MDRD (S/P/Bld) [Vol rate/Area] mL/min/{1.73_m2} Normal 60 - 999 [facility] Comment on above: Performed By: #### 2 18439 #### [facility],[address] [place] [address] Result Comment: ACCO RDING TO THE NATIONAL KIDNEY DISEASE EDUCATION PROGRAM(NKDE), A NORMAL eGFR IS A VALUE GREATER THAN OR EQUAL TO 60 ML/MIN/1.73 SQ METERS. CHRONIC KIDNEY DISEASE: <60mL/MIN/1.73 SQ METERS KIDNEY FAILURE: <15mL/MIN/1.73 SQ METERS THIS TEST SHOULD ONLY BE USED FOR PATIENTS 18 YEARS OF AGE AND OLDER. Glucose [Mass/Vol] 75 mg/dL Normal 74 - 106 [facility] Comment on above: Performed By: #### 2 87213 #### [facility],[address] [place] [address] 76399 Potassium [Moles/Vol] 3.1 mmol/L Low 3.5 - 5.1 [facility] Comment on above: Performed By: #### 2 16249 #### [facility],[address] [place] [address] 02426 Sodium [Moles/Vol] 148 mmol/L High 136 - 145 [facility] Comment on above: Performed By: #### 2 71683 #### [facility],[address] [place] [address] 80842 Urea nitrogen [Mass/Vol] 20 mg/dL High 7 - 18 [facility] Comment on above: Performed By: #### 2 66133 #### [address],[place] [address] CBC + DIFFon 05-21-2025 Baso # 0.01 x10EE3/UL Normal 0.00 - 0.10 [facility] Comment on above: Performed By: #### 2 04106 #### [facility],[address] [place] [address] 40882 Basophils/100 WBC (Bld) 0.1 % Normal 0.0 - 2.0 [facility] Comment on above: Performed By: #### 2 98021 #### [facility],[address] [place] [address] 94063 CBC + DIFF Normal [facility] Comment on above: Result Comment: CBC- COMPLETE BLOOD COUNT Performed By: #### 2 14603 #### [facility],[address] [place], [place] [id number] EO # 0.12 x10EE3/UL Normal 0.00 - 0.50 [facility] Comment on above: Performed By: #### 2 58885 #### [facility],[address] [place] [address] 58488 Eosinophils/100 WBC (Bld) 1.2 % Normal 0.0 - 7.0 [facility] Comment on above: Performed By: #### 2 42068 #### [facility],[address] [place] [address] 96990 Erythrocyte distribution width (RBC) [Ratio] 14.5 % Normal 12.0 - 15.6 [facility] Comment on above: Performed By: #### 2 10908 #### [facility],[address] [place] [address] 03222 Hematocrit (Bld) [Volume fraction] 31.5 % Low 34.0 - 46.0 [facility] Comment on above: Performed By: #### 2 92661 #### [facility],[address] [place] [address] 26993 Hemoglobin (Bld) [Mass/Vol] 10.2 g/dL Low 12.0 - 16.0 [facility] Comment on above: Performed By: #### 2 97226 #### [facility],[address] [place] [address] Lymph # 0.70 x10EE3/UL Low 0.80 - 2.80 [facility] Comment on above: Performed By: #### 2 13218 #### [facility],[address] [place] [address] Lymphocytes/100 WBC (Bld) 7.0 % Low 20.0 - 45.0 [facility] Comment on above: Performed By: #### 2 10501 #### [facility],[address] [place] [address] MANUAL DIFF N/A Normal [facility] Comment on above: Performed By: #### 2 43292 #### [facility],[address] [place] [address] MCH (RBC) [Entitic mass] 31 pg Normal 27 - 33 [facility] Comment on above: Performed By: #### 2 72682 #### [facility],[address] [place] [address] MCHC 32 X10 3 Normal 32 - 36 [facility] Comment on above: Performed By: #### 2 96999 #### [facility],[address] [place], [place] [id number] MCV (RBC) [Entitic vol] 97 fL Normal 80 - 99 [facility] Comment on above: Performed By: #### 2 51175 #### [facility],[address] [place] [address] 00955 [place] # 0.62 x10EE3/UL Normal 0.20 - 1.00 [facility] Comment on above: Performed By: #### 2 41568 #### [facility],[address] [place], [place] [id number] MONOS % 6.2 % Normal 0.0 - 10.0 [facility] Comment on above: Performed By: #### 2 27276 #### [facility],[address] [place] [address] 40026 Morphology Kenny (Bld) [Interp] N/A Normal [facility] Comment on above: Performed By: #### 2 32304 #### [facility],[address] [place] [address] 39502 Neut # 8.56 x10EE3/UL High 1.50 - 7.10 [facility] Comment on above: Performed By: #### 2 45418 #### [facility],[address] [place] [address] 82360 Neutrophils/100 WBC (Bld) 85.6 % High 46.0 - 76.0 [facility] Comment on above: Performed By: #### 2 31585 #### [facility],[address] [place] [address] 56981 PLATELET 283 x10EE3/UL Normal 150 - 450 [facility] Comment on above: Performed By: #### 2 81279 #### [facility],[address] [place] [address] 95179 Platelet mean volume (Bld) [Entitic vol] 9.3 fL Normal 6.6 - 10.5 [facility] Comment on above: Result Comment: AUTO MATED DIFFERENTIAL Performed By: #### 2 08725 #### [facility],[address] [place] [address] 94736 RBC 3.25 x 10EE6/UL Low 4.10 - 5.30 [facility] Comment on above: Performed By: #### 2 07630 #### [facility],[address] [place] [address] 67445 WBC 10.0 x 10EE3/UL Normal 4.5 - 10.8 [facility] Comment on above: Performed By: #### 2 89855 #### [facility],[address] [place] [address] 02330 CMP with eGFRon 05-21-2025 AGE 69 years Normal [facility] Comment on above: Performed By: #### 2 59195 #### [facility],[address] [place] [address] 96703 Albumin [Mass/Vol] 2.4 g/dL Low 3.4 - 5.0 [facility] Comment on above: Performed By: #### 2 20871 #### [facility],[address] [place] [address] 51543 Albumin/Globulin [Mass ratio] 0.6 {ratio} Low 0.9 - 1.6 [facility] Comment on above: Performed By: #### 2 95957 #### [facility],[address] [place] [address] 97396 ALK PHOS 63 U/L Normal 46 - 116 [facility] Comment on above: Performed By: #### 2 21184 #### [facility],[address] [place] [address] 64662 ALT [Catalytic activity/Vol] 20 U/L Normal 16 - 63 [facility] Comment on above: Performed By: #### 2 03571 #### [facility],[address] [place] [address] 77882 Anion gap [Moles/Vol] 1 mmol/L Low 10 - 20 [facility] Comment on above: Performed By: #### 2 72374 #### [facility],[address] [place] [address] 86202 AST [Catalytic activity/Vol] 11 U/L Low 13 - 39 [facility] Comment on above: Performed By: #### 2 20114 #### [facility],[address] [place] [address] 24856 B/C RATIO 26 ratio Normal 0 - 30 [facility] Comment on above: Performed By: #### 2 49472 #### [facility],[address] [place] [address] 93064 Bilirubin [Mass/Vol] 0.6 mg/dL Normal 0.2 - 1.0 [facility] Comment on above: Performed By: #### 2 55927 #### [address] [address] Calcium [Mass/Vol] 8.6 mg/dL Normal 8.5 - 10.1 [facility] Comment on above: Performed By: #### 2 72511 #### [address] [address] Chloride [Moles/Vol] 105 mmol/L Normal 98 - 107 [facility] Comment on above: Performed By: #### 2 78368 #### [facility],[address] [place] [address] 57461 CMP with eGFR Normal [facility] Comment on above: Result Comment: COMP REHENSIVE METABOLIC PANEL Performed By: #### 2 01038 #### [address] [address] CO2 [Moles/Vol] 44.0 mmol/L Critically high 21.0 - 32.0 [facility] Comment on above: Result Comment: { CA LLED TO NANCY SILVERMAN MY AT 08:15 { READ BACK BY GERALD CASE MY AT 08:15 Performed By: #### 2 02356 #### [address] [address] Creatinine [Mass/Vol] 0.77 mg/dL Normal 0.55 - 1.02 [facility] Comment on above: Performed By: #### 2 13468 #### [address] [address] GFR/1.73 sq M.predicted among non-blacks MDRD (S/P/Bld) [Vol rate/Area] mL/min/{1.73_m2} Normal 60 - 999 [facility] Comment on above: Performed By: #### 2 49429 #### [place] [id number] Result Comment: ACCO RDING TO THE NATIONAL KIDNEY DISEASE EDUCATION PROGRAM(NKDE), A NORMAL eGFR IS A VALUE GREATER THAN OR EQUAL TO 60 ML/MIN/1.73 SQ METERS. CHRONIC KIDNEY DISEASE: <60mL/MIN/1.73 SQ METERS KIDNEY FAILURE: <15mL/MIN/1.73 SQ METERS THIS TEST SHOULD ONLY BE USED FOR PATIENTS 18 YEARS OF AGE AND OLDER. Globulin (S) [Mass/Vol] 3.9 g/dL High 1.5 - 3.8 [facility] Comment on above: Performed By: #### 2 81561 #### [facility],[address] [place] [address] 01518 Glucose [Mass/Vol] 99 mg/dL Normal 74 - 106 [facility] Comment on above: Performed By: #### 2 44940 #### [facility],[address] [place] [address] 73092 Potassium [Moles/Vol] 3.3 mmol/L Low 3.5 - 5.1 [facility] Comment on above: Performed By: #### 2 11397 #### [facility],[address] [place] [address] 45487 Protein [Mass/Vol] 6.3 g/dL Low 6.4 - 8.2 [facility] Comment on above: Performed By: #### 2 72573 #### [facility],[address] [place] [address] 85297 Sodium [Moles/Vol] 147 mmol/L High 136 - 145 [facility] Comment on above: Performed By: #### 2 62138 #### [facility],[address] [place] [address] 63508 Urea nitrogen [Mass/Vol] 20 mg/dL High 7 - 18 [facility] Comment on above: Performed By: #### 2 48211 #### [facility],[address] [place] [address] 56769 LIPID PROFILEon 05-21-2025 Cholesterol [Mass/Vol] 101 mg/dL Normal 0 - 240 [facility] Comment on above: Performed By: #### 2 20942 #### [facility],[address] [place] [address] 27537 Cholesterol in HDL [Mass/Vol] 49 mg/dL Normal 40 - 60 [facility] Comment on above: Performed By: #### 2 33387 #### [facility],[address] [place] [address] 39660 Cholesterol in LDL [Mass/Vol] 34 mg/dL Normal 0 - 129 [facility] Comment on above: Performed By: #### 2 21147 #### [facility],[address] [place] [address] 81397 Cholesterol.total/Cho lesterol in HDL [Mass ratio] 2.1 {ratio} Normal 0.0 - 5.0 [facility] Comment on above: Performed By: #### 2 61361 #### [facility],[address] [place] [address] 99428 Lipid 1996 panel Normal [facility] Comment on above: Result Comment: LIPI D PROFILE Performed By: #### 2 03928 #### [facility],[address] [place] [address] 83221 Triglyceride [Mass/Vol] 90 mg/dL Normal 0 - 150 [facility] Comment on above: Performed By: #### 2 69897 #### [facility],[address] [place] [address] 28137 Discharge Instructionon 04-28 Discharge Instruction Normal [facility] Absolute lymphocyte countOrd ered By: George Polanco on 05-16-2025 Lymphocytes Auto (Unsp spec) [#/Vol] 0.28 10*3/uL Low 0.83-4.51 [facility] Absolute neutrophil countOrd ered By: George Polanco on 05-16-2025 Neutrophils (Bld) [#/Vol] 8.3 10*3/uL High 2.0-7.7 [facility] Anion gap in Serum or Plasma Ordered By: George Polanco on 05-16-2025 Anion gap [Moles/Vol] 10 mmol/L 5-15 [facility] Automated lymphocyte count a s percentage of total leukocytesOrdered By: George Polanco on 05-16-2025 Lymphocytes/100 WBC Auto (Unsp spec) 3.2 % Low 19-41 [facility] BUN/creatinine ratioOrdered By: George Polanco on 05-16-2025 Urea nitrogen/Creatinine [Mass ratio] 46.8 mg/mg High 08-16 [facility] Basic Metabolic Profile (BMP )on 05-16-2025 BUN/CRE 46.8 RATIO High 08-16 [facility] Comment on above: Performed By: #### L 500.2500, L100.0100 ####[facility] [address] [place], [address] Calcium [Mass/Vol] 9.2 mg/dL Normal 7.6-11.0 [facility] Comment on above: Performed By: #### L 500.2500, L100.0100 ####[facility] [address] [place], [address] Chloride [Moles/Vol] 91 mmol/L Low 98-108 [facility] Comment on above: Performed By: #### L 500.2500, L100.0100 ####[facility] [address] [place], [address] CO2 [Moles/Vol] 39.8 mmol/L High 21.0-32.0 [facility] Comment on above: Performed By: #### L 500.2500, L100.0100 ####[facility] [address] [place], [address] Creatinine [Mass/Vol] 0.66 mg/dL Low 0.70-1.20 [facility] Comment on above: Performed By: #### L 500.2500, L100.0100 ####[facility] [address] [place], [address] ECRCL 86.60 ml/min Normal 50-250 [facility] Comment on above: Performed By: #### L 500.2500, L100.0100 ####[facility] [address] [place], [address] GAP 10 Normal 5-15 [facility] Comment on above: Performed By: #### L 500.2500, L100.0100 ####[facility] [address] [place], [address] GFR/1.73 sq M.predicted among non-blacks MDRD (S/P/Bld) [Vol rate/Area] 96 mL/min/{1.73_m2} Normal >60 [facility] Comment on above: Result Comment: mL/m in/1.73m2 CKD-EPI Creatinine Equation (2020) Performed By: #### L 500.2500, L100.0100 ####[facility] [address] [place], [address] Glucose [Mass/Vol] 162 mg/dL High 70-99 [facility] Comment on above: Performed By: #### L 500.2500, L100.0100 ####[facility] [address] [place], [address] Potassium [Moles/Vol] 4.5 mmol/L Normal 3.3-5.1 [facility] Comment on above: Result Comment: Hemo lysis present, Results??could be affected.?? Performed By: #### L 500.2500, L100.0100 ####[facility] [address] [place], [address] Sodium [Moles/Vol] 141 mmol/L Normal 133-145 [facility] Comment on above: Performed By: #### L 500.2500, L100.0100 ####[facility] [address] [place], [address] Urea nitrogen [Mass/Vol] 31 mg/dL High 4-19 [facility] Comment on above: Performed By: #### L 500.2500, L100.0100 ####[facility] [address] [place], [address] Basophil percentageOrdered B y: George Polanco on 05-16-2025 Basophils/100 WBC (Bld) 0.1 % 0-1 [facility] CBC W/Diff, Automatedon 04-28-2024 Absolute Lymph 0.28 X10 3/uL Low 0.83-4.51 [facility] Comment on above: Performed By: #### L 500.2500, L100.0100 ####[facility] [address] [place], [address] Absolute Neut 8.3 X10 3/uL High 2.0-7.7 [facility] Comment on above: Performed By: #### L 500.2500, L100.0100 ####[facility] [address] [place], [address] Basophils/100 WBC (Bld) 0.1 % Normal 0-1 [facility] Comment on above: Performed By: #### L 500.2500, L100.0100 ####[facility] [address] [place], [address] Eosinophils/100 WBC (Bld) 0.0 % Normal 0-5 [facility] Comment on above: Performed By: #### L 500.2500, L100.0100 ####[facility] [address] [place], [address] Erythrocyte distribution width (RBC) [Ratio] 15.4 % High 11.6-14.6 [facility] Comment on above: Performed By: #### L 500.2500, L100.0100 ####[facility] [address] [place], [address] Hematocrit (Bld) [Volume fraction] 30.9 % Low 37-47 [facility] Comment on above: Performed By: #### L 500.2500, L100.0100 ####[facility] [address] [place], [address] Hemoglobin (Bld) [Mass/Vol] 9.5 g/dL Low 12.0-15.0 [facility] Comment on above: Performed By: #### L 500.2500, L100.0100 ####[facility] [address] [place], [address] IG% 0.600 Normal 0.0-0.9 [facility] Comment on above: Result Comment: IG% - Immature Granulocytes (promyelocytes, myelocytes andmetamyelocytes) > 1% indicates that a LEFT SHIFT is Present. Performed By: #### L 500.2500, L100.0100 ####[facility] [address] [place], [address] Lymphocytes/100 WBC (Bld) 3.2 % Low 19-41 [facility] Comment on above: Performed By: #### L 500.2500, L100.0100 ####[facility] [address] [place], [address] MCH (RBC) [Entitic mass] 30.3 pg Normal 27.0-32.0 [facility] Comment on above: Performed By: #### L 500.2500, L100.0100 ####[facility] [address] [place], [address] MCHC (RBC) [Mass/Vol] 30.7 g/dL Low 32-36 [facility] Comment on above: Performed By: #### L 500.2500, L100.0100 ####[facility] [address] [place], [address] MCV (RBC) [Entitic vol] 98.4 fL Normal 81-99 [facility] Comment on above: Performed By: #### L 500.2500, L100.0100 ####[facility] [address] [place], [address] Monocytes/100 WBC (Bld) 2.9 % Normal 0-10 [facility] Comment on above: Performed By: #### L 500.2500, L100.0100 ####[facility] [address] [place], [address] Neutrophils/100 WBC (Bld) 93.2 % High 47-70 [facility] Comment on above: Performed By: #### L 500.2500, L100.0100 ####[facility] [address] [place], [address] Nucleated RBC (Bld) [#/Vol] 0 10*3/uL Normal 0-5 [facility] Comment on above: Performed By: #### L 500.2500, L100.0100 ####[facility] [address] [place], [address] Platelet mean volume (Bld) [Entitic vol] 11.5 fL Normal 6.2-12.0 [facility] Comment on above: Performed By: #### L 500.2500, L100.0100 ####[facility] [address] [place], [address] Platelets (Bld) [#/Vol] 142 10*3/uL Low 150-450 [facility] Comment on above: Performed By: #### L 500.2500, L100.0100 ####[facility] [address] [place], [address] RBC (Bld) [#/Vol] 3.14 10*6/uL Low 4.2-5.4 [facility] Comment on above: Performed By: #### L 500.2500, L100.0100 ####[facility] [address] [place], [address] RDW SD 54.3 fl High 35.1-43.9 [facility] Comment on above: Performed By: #### L 500.2500, L100.0100 ####[facility] [address] [place], [address] WBC (Bld) [#/Vol] 8.9 10*3/uL Normal 4.4-11.0 [facility] Comment on above: Performed By: #### L 500.2500, L100.0100 ####[facility] [address] [place], [address] Carbon dioxide, total [Moles /volume] in Central venous bloodOrdered By: George Polanco on 05-16-2025 CO2 [Moles/Vol] 39.8 mmol/L High 21.0-32.0 [facility] Chloride assayOrdered By: Ashley Polanco on 05-16-2025 Chloride [Moles/Vol] 91 mmol/L Low 98-108 [facility] Eosinophil percentageOrdered By: George Polanco on 05-16-2025 Eosinophils/100 WBC (Bld) 0.0 % 0-5 [facility] Erythrocyte distribution wid th ratioOrdered By: George Polanco on 05-16-2025 Erythrocyte distribution width (RBC) [Ratio] 15.4 % High 11.6-14.6 [facility] Erythrocyte distribution wid th standard deviationOrdered By: George Polanco on 05-16-2025 Erythrocyte distribution width (RBC) [Ratio] 54.3 fl High 35.1-43.9 [facility] Glomerular filtration rate ( GFR) estimation/1.73 sq m using serum, plasma, or whole bOrdered By: George Polanco on 05-16-2025 GFR/1.73 sq M.predicted among non-blacks MDRD (S/P/Bld) [Vol rate/Area] 96 mL/min/{1.73_m2} >60 [facility] Comment on above: mL/min/1.73m2 CKD-EP I Creatinine Equation (2020) Hematocrit Auto (Bld) [Volum e fraction]Ordered By: George Polanco on 05-16-2025 Hematocrit (Bld) [Volume fraction] 30.9 % Low 37-47 [facility] Hemoglobin measurementOrdere d By: George Polanco on 05-16-2025 Hemoglobin (Bld) [Mass/Vol] 9.5 g/dL Low 12.0-15.0 [facility] Immature granulocytes/100 WB C Auto (Bld)Ordered By: George Polanco on 05-16-2025 Immature granulocytes/100 WBC (Bld) 0.600 % 0.0-0.9 [facility] Comment on above: IG% - Immature Granu locytes (promyelocytes, myelocytes and metamyelocytes) > 1% indicates that a LEFT SHIFT is Present. MCV (mean corpuscular volume ) determinationOrdered By: George Polanco on 05-16-2025 MCV (RBC) [Entitic vol] 98.4 fL 81-99 [facility] Mean corpuscular hemoglobin (MCH) determinationOrdered By: George Polanco on 05-16-2025 MCH (RBC) [Entitic mass] 30.3 pg 27.0-32.0 [facility] Mean corpuscular hemoglobin concentration (MCHC) determinationOrdered By: George Polanco on 05-16-2025 MCHC (RBC) [Mass/Vol] 30.7 g/dL Low 32-36 [facility] Mean platelet volume determi nationOrdered By: George Polanco on 05-16-2025 Platelet mean volume (Bld) [Entitic vol] 11.5 fL 6.2-12.0 [facility] Monocyte percentageOrdered B y: George Polanco on 05-16-2025 Monocytes/100 WBC (Bld) 2.9 % 0-10 [facility] Neutrophil percentageOrdered By: George Polanco on 05-16-2025 Neutrophils/100 WBC (Bld) 93.2 % High 47-70 [facility] Nucleated red blood cell per centageOrdered By: George Polanco on 05-16-2025 Nucleated RBC/100 WBC (Bld) [Ratio] 0 % 0-5 [facility] Platelet countOrdered By: Ashley Polanco on 05-16-2025 Platelets (Bld) [#/Vol] 142 10*3/uL Low 150-450 [facility] Potassium measurement (mass/ volume)Ordered By: George Polanco on 05-16-2025 Potassium (Unsp spec) [Mass/Vol] 4.5 mmol/L 3.3-5.1 [facility] Comment on above: Hemolysis present, R esults could be affected. RBC Auto (Bld) [#/Vol]Ordere d By: George Polanco on 05-16-2025 RBC (Bld) [#/Vol] 3.14 10*6/uL Low 4.2-5.4 [facility] Serum creatinine measurement (mass/volume)Ordered By: George Polanco on 05-16-2025 Creatinine [Mass/Vol] 0.66 mg/dL Low 0.70-1.20 [facility] Serum glucose measurement (m ass/volume)Ordered By: George Polanco on 05-16-2025 Glucose [Mass/Vol] 162 mg/dL High 70-99 [facility] Serum or plasma calcium tad urement (mass/volume)Ordered By: George Polanco on 05-16-2025 Calcium [Mass/Vol] 9.2 mg/dL 7.6-11.0 [facility] Serum or plasma urea nitroge n measurement (mass/volume)Ordered By: George Polanco on 05-16-2025 Urea nitrogen [Mass/Vol] 31 mg/dL High - [facility] Sodium levelOrdered By: Orlando Polanco on 05-16-2025 Sodium [Moles/Vol] 141 mmol/L 133-145 [facility] White blood cell (WBC) count Ordered By: George Polanco on 05-16-2025 WBC (Bld) [#/Vol] 8.9 10*3/uL 4.4-11.0 [facility] Basic Metabolic Profile (BMP )on 05-15-2025 BUN/CRE 36.8 RATIO High - [facility] Comment on above: Performed By: #### L 100.0100, L500.2500 ####[facility] [address] [place], [place], [address] Calcium [Mass/Vol] 9.6 mg/dL Normal 7.6-11.0 [facility] Comment on above: Performed By: #### L 100.0100, L500.2500 ####[facility] [address] [place], [address] Chloride [Moles/Vol] 92 mmol/L Low 98-108 [facility] Comment on above: Performed By: #### L 100.0100, L500.2500 ####[facility] [address] [place], [address] CO2 [Moles/Vol] 40.8 mmol/L High 21.0-32.0 [facility] Comment on above: Performed By: #### L 100.0100, L500.2500 ####[facility] [address] [place], [address] Creatinine [Mass/Vol] 0.63 mg/dL Low 0.70-1.20 [facility] Comment on above: Performed By: #### L 100.0100, L500.2500 ####[facility] [address] [place], [address] ECRCL 86.60 ml/min Normal 50-250 [facility] Comment on above: Performed By: #### L 100.0100, L500.2500 ####[facility] [address] [place], [address] GAP 12 Normal 5-15 [facility] Comment on above: Performed By: #### L 100.0100, L500.2500 ####[facility] [address] [place], [address] GFR/1.73 sq M.predicted among non-blacks MDRD (S/P/Bld) [Vol rate/Area] 97 mL/min/{1.73_m2} Normal >60 [facility] Comment on above: Result Comment: mL/m in/1.73m2 CKD-EPI Creatinine Equation (2020) Performed By: #### L 100.0100, L500.2500 ####[facility] [address] [place], [address] Glucose [Mass/Vol] 137 mg/dL High 70-99 [facility] Comment on above: Performed By: #### L 100.0100, L500.2500 ####[facility] [address] [place], [address] Potassium [Moles/Vol] 4.6 mmol/L Normal 3.3-5.1 [facility] Comment on above: Performed By: #### L 100.0100, L500.2500 ####[facility] [address] [place], [address] Sodium [Moles/Vol] 144 mmol/L Normal 133-145 [facility] Comment on above: Performed By: #### L 100.0100, L500.2500 ####[facility] [address] [place], [address] Urea nitrogen [Mass/Vol] 23 mg/dL High 4-19 [facility] Comment on above: Performed By: #### L 100.0100, L500.2500 ####[facility] [address] [place], [address] CBC W/Diff, Automatedon 04-27 PLT EST A Normal [facility] Comment on above: Performed By: #### L 100.0100, L500.2500 ####[facility] [address] [place], [address] PLT MORPH CLUMPED Normal [facility] Comment on above: Performed By: #### L 100.0100, L500.2500 ####[facility] [address] [place], [address] Platelet estimateOrdered By: George Polanco on 05-15-2025 Platelets LM Ql (Bld) A ADEQ [facility] Platelet morphologyOrdered B y: George Polanco on 05-15-2025 Platelet morphology finding Nom (Bld) CLUMPED [facility] Basic Metabolic Profile (BMP )on 05-14-2025 BUN/CRE 30.8 RATIO High 10-20 [facility] Comment on above: Performed By: #### L 100.0500, L500.2500 ####[facility] [address] [place], [address] Calcium [Mass/Vol] 9.2 mg/dL Normal 7.6-11.0 [facility] Comment on above: Performed By: #### L 100.0500, L500.2500 ####[facility] [address] [place], [address] Chloride [Moles/Vol] 92 mmol/L Low 98-108 [facility] Comment on above: Performed By: #### L 100.0500, L500.2500 ####[facility] [address] [place], [address] CO2 [Moles/Vol] 47.9 mmol/L Invalid Interpretation Code 21.0-32.0 [facility] Comment on above: Result Comment: Crit ical Result(s) Called at: 05/14/2025-06:54 by: Mason.??Results read back by same. Performed By: #### L 100.0500, L500.2500 ####[facility] [address] [place], [address] Creatinine [Mass/Vol] 0.68 mg/dL Low 0.70-1.20 [facility] Comment on above: Performed By: #### L 100.0500, L500.2500 ####[facility] [address] [place], [address] ECRCL 86.60 ml/min Normal 50-250 [facility] Comment on above: Performed By: #### L 100.0500, L500.2500 ####[facility] [address] [place], [address] GAP 7 Normal 5-15 [facility] Comment on above: Performed By: #### L 100.0500, L500.2500 ####[facility] [address] [place], [address] GFR/1.73 sq M.predicted among non-blacks MDRD (S/P/Bld) [Vol rate/Area] 95 mL/min/{1.73_m2} Normal >60 [facility] Comment on above: Result Comment: mL/m in/1.73m2 CKD-EPI Creatinine Equation (2020) Performed By: #### L 100.0500, L500.2500 ####[facility] [address] [place], [address] Glucose [Mass/Vol] 145 mg/dL High 70-99 [facility] Comment on above: Performed By: #### L 100.0500, L500.2500 ####[facility] [address] [place], [address] Potassium [Moles/Vol] 3.8 mmol/L Normal 3.3-5.1 [facility] Comment on above: Performed By: #### L 100.0500, L500.2500 ####[facility] [address] [place], [address] Sodium [Moles/Vol] 147 mmol/L High 133-145 [facility] Comment on above: Performed By: #### L 100.0500, L500.2500 ####[facility] [address], [address] Urea nitrogen [Mass/Vol] 21 mg/dL High 4-19 [facility] Comment on above: Performed By: #### L 100.0500, L500.2500 ####[facility] [address] [place], [address] CBC-Complete Blood Cnt No Di ffon 05-14-2025 Erythrocyte distribution width (RBC) [Ratio] 15.3 % High 11.6-14.6 [facility] Comment on above: Performed By: #### L 100.0500, L500.2500 ####[facility] [address] [place], [address] Hematocrit (Bld) [Volume fraction] 33.6 % Low 37-47 [facility] Comment on above: Performed By: #### L 100.0500, L500.2500 ####[facility] [address] [place], [address] Hemoglobin (Bld) [Mass/Vol] 9.9 g/dL Low 12.0-15.0 [facility] Comment on above: Performed By: #### L 100.0500, L500.2500 ####[facility] [address] [place], [address] MCH (RBC) [Entitic mass] 30.3 pg Normal 27.0-32.0 [facility] Comment on above: Performed By: #### L 100.0500, L500.2500 ####[facility] [address] [place], [address] MCHC (RBC) [Mass/Vol] 29.5 g/dL Low 32-36 [facility] Comment on above: Performed By: #### L 100.0500, L500.2500 ####[facility] [address] [place], [address] MCV (RBC) [Entitic vol] 102.8 fL High 81-99 [facility] Comment on above: Performed By: #### L 100.0500, L500.2500 ####[facility] [address] [place], [address] Platelet mean volume (Bld) [Entitic vol] 10.7 fL Normal 6.2-12.0 [facility] Comment on above: Performed By: #### L 100.0500, L500.2500 ####[facility] [address] [place], [address] Platelets (Bld) [#/Vol] 269 10*3/uL Normal 150-450 [facility] Comment on above: Performed By: #### L 100.0500, L500.2500 ####[facility] [address] [place], [address] RBC (Bld) [#/Vol] 3.27 10*6/uL Low 4.2-5.4 [facility] Comment on above: Performed By: #### L 100.0500, L500.2500 ####[facility] [address] [place], [address] RDW SD 57.1 fl High 35.1-43.9 [facility] Comment on above: Performed By: #### L 100.0500, L500.2500 ####[facility] [address] [place], [address] WBC (Bld) [#/Vol] 8.5 10*3/uL Normal 4.4-11.0 [facility] Comment on above: Performed By: #### L 100.0500, L500.2500 ####[facility] [address] [place], [address] Absolute lymphocyte countOrd ered By: Malika Hernandez on 05-13-2025 Lymphocytes Auto (Unsp spec) [#/Vol] 0.61 10*3/uL Low 0.83-4.51 [facility] Absolute neutrophil countOrd ered By: Malika Hernandez on 05-13-2025 Neutrophils (Bld) [#/Vol] 8.6 10*3/uL High 2.0-7.7 [facility] Anion gap in Serum or Plasma Ordered By: Malika Hernandez on 05-13-2025 Anion gap [Moles/Vol] 14 mmol/L 5-15 [facility] Assessment of wrist artery p atency prior to arterial punctureOrdered By: Linwood Ivy on 05-13-2025 Arterial patency Wrist artery --pre arterial puncture Positive [facility] Automated lymphocyte count a s percentage of total leukocytesOrdered By: Malika Hernandez on 05-13-2025 Lymphocytes/100 WBC Auto (Unsp spec) 6.1 % Low 19-41 [facility] BUN/creatinine ratioOrdered By: Malika Hernandez on 05-13-2025 Urea nitrogen/Creatinine [Mass ratio] 43.3 mg/mg High 10-20 [facility] Basophil percentageOrdered B y: Malika Hernandez on 05-13-2025 Basophils/100 WBC (Bld) 0.6 % 0-1 [facility] Bilirubin, totalOrdered By: Malika Hernandez on 05-13-2025 Bilirubin [Mass/Vol] 0.51 mg/dL 0.00-1.30 [facility] Blood Gases by CPSon 025 RIO TEST Positive Normal [facility] Comment on above: Performed By: #### L 9000.0800 ####[facility] [address] [place], [address] Base excess Calc (Bld) [Moles/Vol] 27 mmol/L High -2 to +2 [facility] Comment on above: Performed By: #### L 9000.0800 ####[facility] [address] [place], [address] Blood Gas Type ART Normal [facility] Comment on above: Performed By: #### L 9000.0800 ####[facility] [address] [place], [address] FI02 15.0 Normal [facility] Comment on above: Performed By: #### L 9000.0800 ####[facility] [address] [place], [address] HCO3 (Bld) [Moles/Vol] 52.6 mmol/L High 22-26 [facility] Comment on above: Performed By: #### L 9000.0800 ####[facility] [address] [place], [address] Mode Not entered Normal [facility] Comment on above: Performed By: #### L 9000.0800 ####[facility] [address] [place], [address] O2 Delivery Dev Cannula Normal [facility] Comment on above: Performed By: #### L 9000.0800 ####[facility] [address] [place], [address] pCO2 92.9 mmHg Invalid Interpretation Code 35-45 [facility] Comment on above: Performed By: #### L 9000.0800 ####[facility] [address] [place], [address] pH (Bld) 7.36 [pH] Normal 7.35-7.45 [facility] Comment on above: Performed By: #### L 9000.0800 ####[facility] [address] [place], [address] PO2 85 mmHG Normal 75-100 [facility] Comment on above: Performed By: #### L 9000.0800 ####[facility] [address] [place], [address] Read Back By Yes Normal [facility] Comment on above: Performed By: #### L 9000.0800 ####[facility] [address] [place], [address] Results To glauthia Normal [facility] Comment on above: Performed By: #### L 9000.0800 ####[facility] [address] [place], [address] SITE R Radial Normal [facility] Comment on above: Performed By: #### L 9000.0800 ####[facility] [address] [place], [address] SO2 95 Normal 95-99 [facility] Comment on above: Performed By: #### L 9000.0800 ####[facility] [address] [place], [address] Time Given 13:37:54 Normal [facility] Comment on above: Performed By: #### L 9000.0800 ####[facility] [address] [place], [address] TOTAL CO2 > 50 Normal [facility] Comment on above: Performed By: #### L 9000.0800 ####[facility] [address] [place], [address] Blood base excess determinat ionOrdered By: Linwood Ivy on 05-13-2025 Base excess Calc (BldV) [Moles/Vol] 27 mmol/L High -2-2 [facility] Blood bicarbonate measuremen tOrdered By: Linwood Ivy on 05-13-2025 HCO3 (Bld) [Moles/Vol] 52.6 mmol/L High 22-26 [facility] CBC W/Diff, Automatedon 04-27 Absolute Lymph 0.61 X10 3/uL Low 0.83-4.51 [facility] Comment on above: Performed By: #### L 503.7505, L500.4050, L100.0100 ####[facility] [address] [place], [address] Absolute Neut 8.6 X10 3/uL High 2.0-7.7 [facility] Comment on above: Performed By: #### L 503.7505, L500.4050, L100.0100 ####[facility] [address] [place], [address] Basophils/100 WBC (Bld) 0.6 % Normal 0-1 [facility] Comment on above: Performed By: #### L 503.7505, L500.4050, L100.0100 ####[facility] [address] [place], [address] Eosinophils/100 WBC (Bld) 0.1 % Normal 0-5 [facility] Comment on above: Performed By: #### L 503.7505, L500.4050, L100.0100 ####[facility] [address] [place], [address] Erythrocyte distribution width (RBC) [Ratio] 15.3 % High 11.6-14.6 [facility] Comment on above: Performed By: #### L 503.7505, L500.4050, L100.0100 ####[facility] [address] [place], [address] Hematocrit (Bld) [Volume fraction] 34.1 % Low 37-47 [facility] Comment on above: Performed By: #### L 503.7505, L500.4050, L100.0100 ####[facility] [address] [place], [address] Hemoglobin (Bld) [Mass/Vol] 10.1 g/dL Low 12.0-15.0 [facility] Comment on above: Performed By: #### L 503.7505, L500.4050, L100.0100 ####[facility] [address] [place], [address] IG% 0.700 Normal 0.0-0.9 [facility] Comment on above: Result Comment: IG% - Immature Granulocytes (promyelocytes, myelocytes andmetamyelocytes) > 1% indicates that a LEFT SHIFT is Present. Performed By: #### L 503.7505, L500.4050, L100.0100 ####[facility] [address] [place], [address] Lymphocytes/100 WBC (Bld) 6.1 % Low 19-41 [facility] Comment on above: Performed By: #### L 503.7505, L500.4050, L100.0100 ####[facility] [address] [place], [address] MCH (RBC) [Entitic mass] 30.0 pg Normal 27.0-32.0 [facility] Comment on above: Performed By: #### L 503.7505, L500.4050, L100.0100 ####[facility] [address] [place], [address] MCHC (RBC) [Mass/Vol] 29.6 g/dL Low 32-36 [facility] Comment on above: Performed By: #### L 503.7505, L500.4050, L100.0100 ####[facility] [address] [place], [address] MCV (RBC) [Entitic vol] 101.2 fL High 81-99 [facility] Comment on above: Performed By: #### L 503.7505, L500.4050, L100.0100 ####[facility] [address] [place], [address] Monocytes/100 WBC (Bld) 7.4 % Normal 0-10 [facility] Comment on above: Performed By: #### L 503.7505, L500.4050, L100.0100 ####[facility] [address] [place], [address] Neutrophils/100 WBC (Bld) 85.1 % High 47-70 [facility] Comment on above: Performed By: #### L 503.7505, L500.4050, L100.0100 ####[facility] [address] [place], [address] Nucleated RBC (Bld) [#/Vol] 0 10*3/uL Normal 0-5 [facility] Comment on above: Performed By: #### L 503.7505, L500.4050, L100.0100 ####[facility] [address] [place], [address] Platelet mean volume (Bld) [Entitic vol] 11.1 fL Normal 6.2-12.0 [facility] Comment on above: Performed By: #### L 503.7505, L500.4050, L100.0100 ####[facility] [address] [place], [address] Platelets (Bld) [#/Vol] 115 10*3/uL Low 150-450 [facility] Comment on above: Performed By: #### L 503.7505, L500.4050, L100.0100 ####[facility] [address] [place], [address] RBC (Bld) [#/Vol] 3.37 10*6/uL Low 4.2-5.4 [facility] Comment on above: Performed By: #### L 503.7505, L500.4050, L100.0100 ####[facility] [address] [place], [address] RDW SD 56.6 fl High 35.1-43.9 [facility] Comment on above: Performed By: #### L 503.7505, L500.4050, L100.0100 ####[facility] [address] [place], [address] WBC (Bld) [#/Vol] 10.1 10*3/uL Normal 4.4-11.0 [facility] Comment on above: Performed By: #### L 503.7505, L500.4050, L100.0100 ####[facility] [address] [place], [address] CTA Chest W/WO Contraston CTA Chest W/WO Contrast Normal [facility] Carbon dioxide, total [Moles /volume] in Central venous bloodOrdered By: Malika Hernandez on 05-13-2025 CO2 [Moles/Vol] 36.5 mmol/L High 21.0-32.0 [facility] Chloride assayOrdered By: Marcy gonsalez Mary on 05-13-2025 Chloride [Moles/Vol] 93 mmol/L Low 98-108 [facility] Comprehensive Metabolic Prof ilon 05-13-2025 Albumin [Mass/Vol] 3.1 g/dL Low 3.4-4.8 [facility] Comment on above: Performed By: #### L 503.7505, L500.4050, L100.0100 ####[facility] [address] [place], [address] Albumin/Globulin [Mass ratio] 0.8 {ratio} Low 0.9-2.4 [facility] Comment on above: Performed By: #### L 503.7505, L500.4050, L100.0100 ####[facility] [address] [place], [address] ALK PHOS 121 U/L High 35-104 [facility] Comment on above: Performed By: #### L 503.7505, L500.4050, L100.0100 ####[facility] [address] [place], [address] ALT [Catalytic activity/Vol] 18 U/L Normal <=34 [facility] Comment on above: Result Comment: Hemo lysis present, Results??could be affected.?? Performed By: #### L 503.7505, L500.4050, L100.0100 ####[facility] [address] [place], [address] AST [Catalytic activity/Vol] 27 U/L Normal <=31 [facility] Comment on above: Result Comment: Hemo lysis present, Results??could be affected.?? Performed By: #### L 503.7505, L500.4050, L100.0100 ####[facility] [address] [place], [address] Bilirubin [Mass/Vol] 0.51 mg/dL Normal 0.00-1.30 [facility] Comment on above: Performed By: #### L 503.7505, L500.4050, L100.0100 ####[facility] [address] [place], [address] BUN/CRE 43.3 RATIO High 10-20 [facility] Comment on above: Performed By: #### L 503.7505, L500.4050, L100.0100 ####[facility] [address] [place], [address] Calcium [Mass/Vol] 8.8 mg/dL Normal 7.6-11.0 [facility] Comment on above: Performed By: #### L 503.7505, L500.4050, L100.0100 ####[facility] [address] [place], [address] Chloride [Moles/Vol] 93 mmol/L Low 98-108 [facility] Comment on above: Performed By: #### L 503.7505, L500.4050, L100.0100 ####[facility] [address] [place], [address] CO2 [Moles/Vol] 36.5 mmol/L High 21.0-32.0 [facility] Comment on above: Performed By: #### L 503.7505, L500.4050, L100.0100 ####[facility] [address] [place], [address] Creatinine [Mass/Vol] 0.58 mg/dL Low 0.70-1.20 [facility] Comment on above: Performed By: #### L 503.7505, L500.4050, L100.0100 ####[facility] [address] [place], [address] ECRCL 86.37 ml/min Normal 50-250 [facility] Comment on above: Performed By: #### L 503.7505, L500.4050, L100.0100 ####[facility] [address] [place], [address] GAP 14 Normal 5-15 [facility] Comment on above: Performed By: #### L 503.7505, L500.4050, L100.0100 ####[facility] [address] [place], [address] GFR/1.73 sq M.predicted among non-blacks MDRD (S/P/Bld) [Vol rate/Area] 99 mL/min/{1.73_m2} Normal >60 [facility] Comment on above: Result Comment: mL/m in/1.73m2 CKD-EPI Creatinine Equation (2020) Performed By: #### L 503.7505, L500.4050, L100.0100 ####[facility] [address] [place], [address] Globulin (S) [Mass/Vol] 3.9 g/dL Normal 2.2-4.2 [facility] Comment on above: Performed By: #### L 503.7505, L500.4050, L100.0100 ####[facility] [address] [place], [address] Glucose [Mass/Vol] 97 mg/dL Normal 70-99 [facility] Comment on above: Performed By: #### L 503.7505, L500.4050, L100.0100 ####[facility] [address] [place], [address] Potassium [Moles/Vol] 4.7 mmol/L Normal 3.3-5.1 [facility] Comment on above: Result Comment: Hemo lysis present, Results??could be affected.?? Performed By: #### L 503.7505, L500.4050, L100.0100 ####[facility] [address] [place], [address] Sodium [Moles/Vol] 143 mmol/L Normal 133-145 [facility] Comment on above: Performed By: #### L 503.7505, L500.4050, L100.0100 ####[facility] [address] [place], [address] T PROT 7.0 g/dL Normal 5.9-8.4 [facility] Comment on above: Performed By: #### L 503.7505, L500.4050, L100.0100 ####[facility] [address] [place], [address] Urea nitrogen [Mass/Vol] 25 mg/dL High 4-19 [facility] Comment on above: Performed By: #### L 503.7505, L500.4050, L100.0100 ####[facility] [address] [place], [address] Emergency Department Summary on 05-13-2025 Emergency Department Summary Normal [facility] Eosinophil percentageOrdered By: Malika Hernandez on 05-13-2025 Eosinophils/100 WBC (Bld) 0.1 % 0-5 [facility] Erythrocyte distribution wid th ratioOrdered By: Malika Hernandez on 05-13-2025 Erythrocyte distribution width (RBC) [Ratio] 15.3 % High 11.6-14.6 [facility] Erythrocyte distribution wid th standard deviationOrdered By: Malika Hernandez on 05-13-2025 Erythrocyte distribution width (RBC) [Ratio] 56.6 fl High 35.1-43.9 [facility] Glomerular filtration rate ( GFR) estimation/1.73 sq m using serum, plasma, or whole bOrdered By: Malika Hernandez on 05-13-2025 GFR/1.73 sq M.predicted among non-blacks MDRD (S/P/Bld) [Vol rate/Area] 99 mL/min/{1.73_m2} >60 [facility] Comment on above: mL/min/1.73m2 CKD-EP I Creatinine Equation (2020) H AND P Exam - Hospital[place] 05-13-2025 H&P Exam - Hospitalist Normal [facility] Hematocrit Auto (Bld) [Volum e fraction]Ordered By: Malikacarlee Hernandez on 05-13-2025 Hematocrit (Bld) [Volume fraction] 34.1 % Low 37-47 [facility] Hemoglobin measurementOrdere d By: Malika Hernandez on 05-13-2025 Hemoglobin (Bld) [Mass/Vol] 10.1 g/dL Low 12.0-15.0 [facility] Immature granulocytes/100 WB C Auto (Bld)Ordered By: Malika Hernandez on 05-13-2025 Immature granulocytes/100 WBC (Bld) 0.700 % 0.0-0.9 [facility] Comment on above: IG% - Immature Granu locytes (promyelocytes, myelocytes and metamyelocytes) > 1% indicates that a LEFT SHIFT is Present. L499.0042on 05-13-2025 Trop T High Sen < 6 Normal <=14 [facility] Comment on above: Performed By: #### L 499.0042 ####[facility] [address] [place], [address] L501.4021on 05-13-2025 Trop T High Sen < 6 Normal <=14 [facility] Comment on above: Result Comment: Hemo lysis present, Results??could be affected.?? Performed By: #### L 501.4021 ####[facility] [address] [place], [address] L503.7505on 05-13-2025 Natriuretic peptide B (Bld) [Mass/Vol] 2554 pg/mL High <=900 [facility] Comment on above: Result Comment: Hear t Failure Unlikely: < 300 pg/mLHeart Failure Likely< 50 Years: > 450 pg/mL50-75 Years: > 900 pg/mL>75 Years: > 1800 pg/mL Performed By: #### L 503.7505, L500.4050, L100.0100 ####[facility] [address] [place], [address] Laboratory - Chemistry and C hemistry - challengeOrdered By: Malika Hernandez on 05-13-2025 AST [Catalytic activity/Vol] 27 U/L <32 [facility] Comment on above: Hemolysis present, R esults could be affected. MCV (mean corpuscular volume ) determinationOrdered By: Malika Hernandez on 05-13-2025 MCV (RBC) [Entitic vol] 101.2 fL High 81-99 [facility] Mean corpuscular hemoglobin (MCH) determinationOrdered By: Malika Hernandez on 05-13-2025 MCH (RBC) [Entitic mass] 30.0 pg 27.0-32.0 [facility] Mean corpuscular hemoglobin concentration (MCHC) determinationOrdered By: Malika Hernandez on 05-13-2025 MCHC (RBC) [Mass/Vol] 29.6 g/dL Low 32-36 [facility] Mean platelet volume determi nationOrdered By: Malika Hernandez on 05-13-2025 Platelet mean volume (Bld) [Entitic vol] 11.1 fL 6.2-12.0 [facility] Measurement, pHOrdered By: Yonatan Ivy on 05-13-2025 pH (Unsp spec) 7.36 [pH] 7.35-7.45 [facility] Monocyte percentageOrdered B y: Malika Hernandez on 05-13-2025 Monocytes/100 WBC (Bld) 7.4 % 0-10 [facility] Natriuretic peptide.B prohor gonzalo N-Terminal [Mass/volume] in Serum or PlasmaOrdered By: Malika Hernandez on 05-13-2025 Natriuretic peptide.B prohormone N-Terminal [Mass/Vol] 2554 pg/mL High <900 [facility] Comment on above: Heart Failure Unlike ly: < 300 pg/mLHeart Failure Likely< 50 Years: > 450 pg/mL50-75 Years: > 900 pg/mL>75 Years: > 1800 pg/mL Neutrophil percentageOrdered By: Malika Hernandez on 05-13-2025 Neutrophils/100 WBC (Bld) 85.1 % High 47-70 [facility] No Panel InformationOrdered By: Linwood Ivy on 05-13-2025 Bld Gas Crit Called To/Read Back By Yes [facility] Blood Gas Notified Time 13:37:54 [facility] Blood Gas Notified Whom trang [facility] Blood Gas Sample Site R Radial [facility] Blood Gas Specimen Type ART [facility] Blood Gas Vent Mode Not entered [facility] Oxygen Delivery Device Cannula [facility] Nucleated red blood cell per centageOrdered By: Malika Hernandez on 05-13-2025 Nucleated RBC/100 WBC (Bld) [Ratio] 0 % 0-5 [facility] Platelet countOrdered By: Marcy Hernandez on 05-13-2025 Platelets (Bld) [#/Vol] 115 10*3/uL Low 150-450 [facility] Potassium measurement (mass/ volume)Ordered By: Malika Hernandez on 05-13-2025 Potassium (Unsp spec) [Mass/Vol] 4.7 mmol/L 3.3-5.1 [facility] Comment on above: Hemolysis present, R esults could be affected. RBC Auto (Bld) [#/Vol]Ordere d By: Malika Hernandez on 05-13-2025 RBC (Bld) [#/Vol] 3.37 10*6/uL Low 4.2-5.4 [facility] Serum creatinine measurement (mass/volume)Ordered By: Malika Hernandez on 05-13-2025 Creatinine [Mass/Vol] 0.58 mg/dL Low 0.70-1.20 [facility] Serum globulin measurementOr dered By: Malika Hernandez on 05-13-2025 Globulin (S) [Mass/Vol] 3.9 g/dL 2.2-4.2 [facility] Serum glucose measurement (m ass/volume)Ordered By: Malika Hernandez on 05-13-2025 Glucose [Mass/Vol] 97 mg/dL 70-99 [facility] Serum or plasma alanine lindsey otransferase (ALT) measurementOrdered By: Malika Hernandez on 05-13-2025 ALT [Catalytic activity/Vol] 18 U/L <35 [facility] Comment on above: Hemolysis present, R esults could be affected. Serum or plasma albumin tad urement (mass/volume)Ordered By: Malika Hernandez on 05-13-2025 Albumin [Mass/Vol] 3.1 g/dL Low 3.4-4.8 [facility] Serum or plasma albumin/glob ulin mass ratioOrdered By: Malika Hernandez on 05-13-2025 Albumin/Globulin [Mass ratio] 0.8 {ratio} Low 0.9-2.4 [facility] Serum or plasma alkaline zita sphatase measurementOrdered By: Malika Hernandez on 05-13-2025 ALP [Catalytic activity/Vol] 121 U/L High 35-104 [facility] Serum or plasma calcium tad urement (mass/volume)Ordered By: Malika Hernandez on 05-13-2025 Calcium [Mass/Vol] 8.8 mg/dL 7.6-11.0 [facility] Serum or plasma urea nitroge n measurement (mass/volume)Ordered By: Malika Hernandez on 05-13-2025 Urea nitrogen [Mass/Vol] 25 mg/dL High 4-19 [facility] Sodium levelOrdered By: Malika Hernandez on 05-13-2025 Sodium [Moles/Vol] 143 mmol/L 133-145 [facility] Total proteinOrdered By: Violeta Hernandez on 05-13-2025 Protein [Mass/Vol] 7.0 g/dL 5.9-8.4 [facility] Troponin T.cardiac [Mass/vol ume] in Serum or Plasma by High sensitivity methodOrdered By: Malika Hernandez on 05-13-2025 Troponin T.cardiac High sensitivity method [Mass/Vol] < 6 ng/L <14 [facility] Troponin T.cardiac High sensitivity method [Mass/Vol] < 6 ng/L <14 [facility] Comment on above: Hemolysis present, R esults could be affected. White blood cell (WBC) count Ordered By: Malika Hernandez on 05-13-2025 WBC (Bld) [#/Vol] 10.1 10*3/uL 4.4-11.0 [facility] ECG 12 lead - CLINIC PERFORM EDon 05-12-2025 Atrial fibrillation with a controlled VR [facility] 7-bites [facility] Health Office Visiton 05-12-2025 Follow-up visit [id number] Hillary Lucero 1955 F Date Provider Department Center 05/12/2025 [id number] MIRELES [facility] None Family History Problem Relation Age of Onset COPD Mother Cancer Father Family Status - Relation Status Age at Mother Father Level of Service:56346 [facility] OFFICE/OUTPATIENT NEW HIGH MDM 60 MINUTES Reason for Visit and Comments: Atrial Flutter [101] COPD [313] - Oxygen dependent Hypertension [087858] Hyperlipidemia [182] Normal [facility] 7-bites System [facility] Progress Noteon 05-12-2025 Progress Note [facility] New Patient Clinic Note Chief Complaint: Chief Complaint Patient presents with Atrial Flutter COPD Oxygen dependent Hypertension Hyperlipidemia History of Present Illness: Rajendra Lucero is a 69 y.o. female referred here by Dr. Elena for management of her atrial tachyarrhythmias. She is a morbidly obese woman with severe, O2 dependent COPD, hypertension, and a fair amount of alcohol use (2-4 mixed drinks per day). She was in her usual state of poor health until January 2025 when she presented to the [place] ED with worsening lower extremity edema and increasing BRAGG for a few months. Her initial ECG showed new onset atrial flutter with variable conduction and a HR of ~98 bpm. An echo showed an EF of 45 to 50%, an RVSP of 53 mmHg, moderate RV systolic dysfunction and mild biatrial dilatation. In late March her PCP sent her back to the ED for confusion and a UTI. At that point she was in A-fib with a controlled VR. She presents today in a wheelchair with a friend who is an RN and is a very good historian. She reports that despite Lasix 60 mg twice daily her LE edema has not changed much. She reports chronic fatigue and BRAGG which she thinks is worse now than it was prior to being diagnosed with her atrial arrhythmias. However, she is extremely sedentary, and does not do much more than walk around the house with a walker she does occasionally go out to a restaurant with friends. She is recently . She denies chest pain, palpitation, PND, orthopnea, or syncope. Vivi reports that generally she is less functional since being diagnosed with atrial flutter/atrial fibrillation and she was prior to that An EKG today shows atrial fibrillation with a VR in the 60s. Assessment and Plan: 1. Persistent atrial tachyarrhythmias: She initially presented with atrial flutter degenerated since then into atrial fibrillation. In A-fib her heart rate is well-controlled on the current medications. I do believe that given her tenuous respiratory status, she misses the atrial contribution to the cardiac output and therefore is more dyspneic with more lower extremity edema. Today we spoke about the fact that an ablation of atrial fibrillation/atrial flutter would be unlikely to maintain sinus rhythm for the long run. We also spoke about the fact that antiarrhythmics might be unsuccessful as well. However, given her continued symptoms and lower extremity edema, and the fact that she feels her quality of life is impaired, I told her it might be reasonable to at least try a one-time cardioversion accompanied by the initiation of an antiarrhythmic drug. Despite her severe COPD, I think amiodarone will be the best choice in her case to try to maintain sinus rhythm. I will start her on 400 mg twice daily for 10 days and then decrease it to 200 mg daily. I will speak with Dr. Elena about setting up a cardioversion in the next 2 to 4 weeks. I explained all of this to her and her friend. They seem appreciative. 2. Lower extremity edema: Likely multifactorial due to her restrictive lung disease, morbid obesity, and probably exacerbated by atrial fibrillation and some diastolic dysfunction. I will increase her Lasix to 80 mg twice daily. 3. End-stage COPD: Oxygen dependent. Managed by her PCP 4. Morbid obesity: Her BMI is 45. She is extremely sedentary and has end-stage COPD. It would be unlikely that she is able to lose a significant amount of weight. Past Medical History: Medical History[1] Past Surgical History Surgical History[2] Family History Family History[3] Social History Social History[4] Medications: Reviewed Allergies: Reviewed Review of Systems: All other systems were reviewed and are negative other than as noted in the HPI. Physical Examination: Vitals: Blood pressure 110/70, pulse 65, height 5' 4 (1.626 m), weight 260 lb (118 kg), SpO2 (!) 78%. Constitutional: Appears well kept and looks stated age; in NAD; morbid obesity Psychiatric: A &O x3 Mood is pleasant; Affect is appropriate Musculoskeletal: Normocephalic; no joint swelling; gait not teste, currently in a wheelchair; 4/5 muscle strength bilaterally in upper and lower extremities; no clubbing or cyanosis HEENT: Pupils are equal and round; Conjunctiva are not injected; Sclera are non-icteric; Airway and Nares are patent; Ears without external abnormalities. Mucosa is pink; Dentition is normal Neck: Supple; No JVD or Bruits; No thyromegaly; No lymphadenopathy Respiratory: Lungs are clear with no rales or wheezes. Respiratory effort is normal and symmetrical bilaterally; Good air movement bilaterally Heart: IRRR; Nl S1 and S2 no mcrg Abdomen: NABS soft, non-tender, non-distended; no organomegaly; no obvious masses Extremities/Skin: 2+ LE edema; Skin warm to touch and well perfused; skin discoloration is present with chronic venous insuffi (more content not included)... [facility] RAJENDRA LUCERO ([id number]) 1955 F Date Time Provider Department 05/11/25 11:40 AM SOFI GARCIA FAMPWS During your visit today, we recorded the following information about you: Temperature Pulse Respiration Blood pressure 99.7 degrees 76/minute 20/minute 110/70 Weight 117.9 kg Sofi Garcia PA-C 05/11/2025 2:34 PM Signed Chief Complaint Patient presents with: [facility] F/U [facility] Rajendra Lucero is a 69 year old female who presents here today for Hospital Discharge Follow up.. Patient was admitted on 04/23/2025 Discharge of 04/27/2024 Dx: atrial flutter with RVR; COPD exacerbation CHF: - Recent hospitalization from 04/23 to 04/27. - Follow-up with cardiology last Saturday; Lasix increased to 60 mg BID for 5 days. - Scheduled to see ice scraper tomorrow. - Started on on Saturday; no [...] disease) (HCC) 02/03/2010 Coronary artery disease No UT, CHF. No heart cath. Diverticulosis of colon [...] hours as needed for wheezing/shortness of breath. ouvcunsovfa-lbveutgiu-nwbixoq r (TRELEGY ELLIPTA) 200-62.5-25 mcg inhalation powder [...] diagnosis: J44.9. Dispense: 1 each, Refills: 99. A (more content not included)... Normal [facility] metabolic 2000 panelon 05-11-2025 Albumin [Mass/Vol] 3.2 g/dL Low 3.9 - 4.9 g/dL [facility] ALP [Catalytic activity/Vol] 147 U/L High 34 - 123 U/L [facility] ALT [Catalytic activity/Vol] 21 U/L 7 - 38 U/L [facility] Anion gap [Moles/Vol] 11 mmol/L 8 - 15 mmol/L [facility] AST [Catalytic activity/Vol] 28 U/L 13 - 35 U/L [facility] Comment on above: Results may be false ly increased due to interference from hemolysis. Suggest reorder as clinically indicated. Bilirubin [Mass/Vol] 0.5 mg/dL 0.2 - 1 .3 mg/dL [facility] Calcium [Mass/Vol] 9.5 mg/dL 8.5 - 10. 2 mg/dL [facility] Chloride [Moles/Vol] 91 mmol/L Low 98 - 10 7 mmol/L [facility] CO2 [Moles/Vol] 39 mmol/L High 22 - 30 mmol/L [facility] Creatinine [Mass/Vol] 0.59 mg/dL 0.58 - 0.96 mg/dL [facility] GFR/1.73 sq M.predicted among non-blacks MDRD (S/P/Bld) [Vol rate/Area] 99 mL/min/{1.73_m2} - PINF [facility] Comment on above: Estimated Glomerular Filtration [...] High 74 - 99 mg/dL [facility] Comment on above: The [place] [employer] (ADA) provides guidance for [...] Standards of Medical Care in Diabetes 2016, [place] [employer]. Diabetes Care. 2016.39(Suppl 1). Interpretation and review of laboratory results Abnormal [facility] Potassium [Moles/Vol] 4.6 mmol/L 3.7 - 5.1 mmol/L [facility] Protein [Mass/Vol] 7.5 g/dL 6.3 - 8.0 g/dL [facility] Sodium [Moles/Vol] 141 mmol/L 136 - 144 mmol/L [facility] Urea nitrogen [Mass/Vol] 20 mg/dL 7 - 21 mg/dL [facility] Albumin [Mass/Vol] 3.2 g/dL Low 3.9-4.9 [facility] Comment on above: Order Comment: Speci men Type: BLOOD SPECIMENOrdering Facility: [facility] Address: [address] [place] [address] Performed By: #### 2 4323-8 ####[facility] LABCLIA [id number] [place] [address] [place] ALP [Catalytic activity/Vol] 147 U/L High 34-123 [facility] Comment on above: Order Comment: Speci men Type: BLOOD SPECIMENOrdering Facility: [facility] Address: [address] [place] [address] Performed By: #### 2 4323-8 ####[facility] LABCLIA [id number] [place] [address] [place] ALT [Catalytic activity/Vol] 21 U/L Normal 7-38 [facility] Comment on above: Order Comment: Speci men Type: BLOOD SPECIMENOrdering Facility: [facility] Address: [address] [place] [address] Performed By: #### 2 4323-8 ####[facility] LABCLIA [id number] [place] [address] [place] Anion gap [Moles/Vol] 11 mmol/L Normal 8-15 [facility] Comment on above: Order Comment: Speci men Type: BLOOD SPECIMENOrdering Facility: [facility] Address: [address] [place], [place] [address] Performed By: #### 2 4323-8 ####[facility] LABCLIA [id number] [place] [address] [place] AST [Catalytic activity/Vol] 28 U/L Normal 13-35 [facility] Comment on above: Order Comment: Speci men Type: BLOOD SPECIMENOrdering Facility: [facility] Address: [address] [place] [address] Result Comment: Resu lts may be falsely increased due to interference from hemolysis. Suggest reorder as clinically indicated. Performed By: #### 2 4323-8 ####[facility] LABIA [id number] [place] [address] [place] Bilirubin [Mass/Vol] 0.5 mg/dL Normal 0.2-1.3 [facility] Comment on above: Order Comment: Speci men Type: BLOOD SPECIMENOrdering Facility: [facility] Address: [address] [place] [address] Performed By: #### 2 4323-8 ####[facility] LABIA [id number] [place] [address] [place] Calcium [Mass/Vol] 9.5 mg/dL Normal 8.5-10.2 [facility] Comment on above: Order Comment: Speci men Type: BLOOD SPECIMENOrdering Facility: [facility] Address: [address] [place] [address] Performed By: #### 2 4323-8 ####[facility] LABIA [id number] [place] [id number] [place] Chloride [Moles/Vol] 91 mmol/L Low 98-107 [facility] Comment on above: Order Comment: Speci men Type: BLOOD SPECIMENOrdering Facility: [facility] Address: [address] [place], [place] [id number] Performed By: #### 2 4323-8 ####[facility] LABCLIA [id number] [facility] [address] [address] [place] CO2 [Moles/Vol] 39 mmol/L High 22-30 [facility] Comment on above: Order Comment: Speci men Type: BLOOD SPECIMENOrdering Facility: [facility] Address: [address] [place] [address] Performed By: #### 2 4323-8 ####[facility] LABCLIA [id number] [address] [address] [place] Creatinine [Mass/Vol] 0.59 mg/dL Normal 0.58-0.96 [facility] Comment on above: Order Comment: Speci men Type: BLOOD SPECIMENOrdering Facility: [facility] Address: [address] [place] [address] Performed By: #### 2 4323-8 ####[facility] LABIA [id number] [place] [id number] [place] eGFRcr SerPlBld CKD-EPI 2020 99 mL/min/1.73m??? Normal >=60 [facility] Comment on above: Order Comment: Speci men Type: BLOOD SPECIMENOrdering Facility: [facility] Address: [address] [place] [address] Result Comment: Marcia mated Glomerular Filtration Rate [...] reflect actual GFR. Performed By: #### 2 4323-8 ####[facility] LABCLIA [id number] [facility] [address] [address] [place] Glucose [Mass/Vol] 113 mg/dL High 74-99 [facility] Comment on above: Order Comment: Speci men Type: BLOOD SPECIMENOrdering Facility: [facility] Address: [address] [id number] Result Comment: The [place] [employer] (ADA) provides guidance for cutoff [...] Standards of Medical Care in Diabetes 2016, [place] [employer]. Diabetes Care. 2016.39(Suppl 1). Performed By: #### 2 4323-8 ####[facility] LABCLIA [id number] [place] [address] [place] Potassium [Moles/Vol] 4.6 mmol/L Normal 3.7-5.1 [facility] Comment on above: Order Comment: Speci men Type: BLOOD SPECIMENOrdering Facility: [facility] Address: [address] [place] [address] Performed By: #### 2 4323-8 ####[facility] LABCLIA [id number] [place] [id number] [place] Protein [Mass/Vol] 7.5 g/dL Normal 6.3-8.0 [facility] Comment on above: Order Comment: Speci men Type: BLOOD SPECIMENOrdering Facility: [facility] Address: [address] [place] [address] Performed By: #### 2 4323-8 ####[facility] LABCLIA [id number] [place] [id number] [place] Sodium [Moles/Vol] 141 mmol/L Normal 136-144 [facility] Comment on above: Order Comment: Speci men Type: BLOOD SPECIMENOrdering Facility: [facility] Address: [address] [place] [address] [place] [address] Performed By: #### 2 4323-8 ####[facility] LABCLIA [id number] [place] [id number] [place] Urea nitrogen [Mass/Vol] 20 mg/dL Normal 7-21 [facility] Comment on above: Order Comment: Speci men Type: BLOOD SPECIMENOrdering Facility: [facility] Address: [address] [facility] [address] [address] [place] [address] Performed By: #### 2 4323-8 ####[facility] LABCLIA [id number] [address] [place] Absolute lymphocyte countOrd ered By: Kim Price on 05-07-2025 Lymphocytes Auto (Unsp spec) [#/Vol] 0.78 10*3/uL Low 0.83-4.51 [facility] Absolute neutrophil countOrd ered By: Kim Price on 05-07-2025 Neutrophils (Bld) [#/Vol] 8.2 10*3/uL High 2.0-7.7 [facility] Anion gap in Serum or Plasma Ordered By: Kim Price on 05-07-2025 Anion gap [Moles/Vol] 10 mmol/L 5-15 [facility] Automated lymphocyte count a s percentage of total leukocytesOrdered By: Kim Price on 05-07-2025 Lymphocytes/100 WBC Auto (Unsp spec) 7.8 % Low 19-41 [facility] BUN/creatinine ratioOrdered By: Kim Price on 05-07-2025 Urea nitrogen/Creatinine [Mass ratio] 23.3 mg/mg High 10-20 [facility] Basic Metabolic Profile (BMP )on 05-07-2025 BUN/CRE 23.3 RATIO High 08-16 [facility] Comment on above: Performed By: #### L 100.0100, L500.2500, L503.7505 ####[facility] [address] [place], [place], [id number] Calcium [Mass/Vol] 9.8 mg/dL Normal 7.6-11.0 [facility] Comment on above: Performed By: #### L 100.0100, L500.2500, L503.7505 ####[facility] [address] [place], [address] Chloride [Moles/Vol] 91 mmol/L Low 98-108 [facility] Comment on above: Performed By: #### L 100.0100, L500.2500, L503.7505 ####[facility] [address] [place], [address] CO2 [Moles/Vol] 41.3 mmol/L High 21.0-32.0 [facility] Comment on above: Performed By: #### L 100.0100, L500.2500, L503.7505 ####[facility] [address] [place], [address] Creatinine [Mass/Vol] 0.69 mg/dL Low 0.70-1.20 [facility] Comment on above: Performed By: #### L 100.0100, L500.2500, L503.7505 ####[facility] [address] [place], [address] GAP 10 Normal 5-15 [facility] Comment on above: Performed By: #### L 100.0100, L500.2500, L503.7505 ####[facility] [address] [place], [address] GFR/1.73 sq M.predicted among non-blacks MDRD (S/P/Bld) [Vol rate/Area] 95 mL/min/{1.73_m2} Normal >60 [facility] Comment on above: Result Comment: mL/m in/1.73m2 CKD-EPI Creatinine Equation (2020) Performed By: #### L 100.0100, L500.2500, L503.7505 ####[facility] [address] [place], [address] Glucose [Mass/Vol] 118 mg/dL High 70-99 [facility] Comment on above: Performed By: #### L 100.0100, L500.2500, L503.7505 ####[facility] [address] [place], [address] Potassium [Moles/Vol] 4.3 mmol/L Normal 3.3-5.1 [facility] Comment on above: Performed By: #### L 100.0100, L500.2500, L503.7505 ####[facility] [address] [place], [address] Sodium [Moles/Vol] 142 mmol/L Normal 133-145 [facility] Comment on above: Performed By: #### L 100.0100, L500.2500, L503.7505 ####[facility] [address] [place], [address] Urea nitrogen [Mass/Vol] 16 mg/dL Normal 4-19 [facility] Comment on above: Performed By: #### L 100.0100, L500.2500, L503.7505 ####[facility] [address] [place], [address] Basophil percentageOrdered B y: Kim Price on 05-07-2025 Basophils/100 WBC (Bld) 0.6 % 0-1 [facility] CBC W/Diff, Automatedon 04-27 Absolute Lymph 0.78 X10 3/uL Low 0.83-4.51 [facility] Comment on above: Performed By: #### L 100.0100, L500.2500, L503.7505 ####[facility] [address] [place], [address] Absolute Neut 8.2 X10 3/uL High 2.0-7.7 [facility] Comment on above: Performed By: #### L 100.0100, L500.2500, L503.7505 ####[facility] [address] [place], [address] Basophils/100 WBC (Bld) 0.6 % Normal 0-1 [facility] Comment on above: Performed By: #### L 100.0100, L500.2500, L503.7505 ####[facility] [address] [place], [address] Eosinophils/100 WBC (Bld) 0.7 % Normal 0-5 [facility] Comment on above: Performed By: #### L 100.0100, L500.2500, L503.7505 ####[facility] [address] [place], [address] Erythrocyte distribution width (RBC) [Ratio] 14.6 % Normal 11.6-14.6 [facility] Comment on above: Performed By: #### L 100.0100, L500.2500, L503.7505 ####[facility] [address] [place], [address] Hematocrit (Bld) [Volume fraction] 36.9 % Low 37-47 [facility] Comment on above: Performed By: #### L 100.0100, L500.2500, L503.7505 ####[facility] [address] [place], [address] Hemoglobin (Bld) [Mass/Vol] 11.0 g/dL Low 12.0-15.0 [facility] Comment on above: Performed By: #### L 100.0100, L500.2500, L503.7505 ####[facility] [address] [place], [address] IG% 0.600 Normal 0.0-0.9 [facility] Comment on above: Result Comment: IG% - Immature Granulocytes (promyelocytes, myelocytes andmetamyelocytes) > 1% indicates that a LEFT SHIFT is Present. Performed By: #### L 100.0100, L500.2500, L503.7505 ####[facility] [address], [address] Lymphocytes/100 WBC (Bld) 7.8 % Low 19-41 [facility] Comment on above: Performed By: #### L 100.0100, L500.2500, L503.7505 ####[facility] [address] [place], [address] MCH (RBC) [Entitic mass] 30.3 pg Normal 27.0-32.0 [facility] Comment on above: Performed By: #### L 100.0100, L500.2500, L503.7505 ####[facility] [address] [place], [address] MCHC (RBC) [Mass/Vol] 29.8 g/dL Low 32-36 [facility] Comment on above: Performed By: #### L 100.0100, L500.2500, L503.7505 ####[facility] [address] [place], [address] MCV (RBC) [Entitic vol] 101.7 fL High 81-99 [facility] Comment on above: Performed By: #### L 100.0100, L500.2500, L503.7505 ####[facility] [address], [address] Monocytes/100 WBC (Bld) 8.3 % Normal 0-10 [facility] Comment on above: Performed By: #### L 100.0100, L500.2500, L503.7505 ####[facility] [address] [place], [address] Neutrophils/100 WBC (Bld) 82.0 % High 47-70 [facility] Comment on above: Performed By: #### L 100.0100, L500.2500, L503.7505 ####[facility] [address], [address] Nucleated RBC (Bld) [#/Vol] 0 10*3/uL Normal 0-5 [facility] Comment on above: Performed By: #### L 100.0100, L500.2500, L503.7505 ####[facility] [address] [place], [address] Platelet mean volume (Bld) [Entitic vol] 10.6 fL Normal 6.2-12.0 [facility] Comment on above: Performed By: #### L 100.0100, L500.2500, L503.7505 ####[facility] [address] [place], [address] Platelets (Bld) [#/Vol] 291 10*3/uL Normal 150-450 [facility] Comment on above: Performed By: #### L 100.0100, L500.2500, L503.7505 ####[facility] [address] [place], [address] RBC (Bld) [#/Vol] 3.63 10*6/uL Low 4.2-5.4 [facility] Comment on above: Performed By: #### L 100.0100, L500.2500, L503.7505 ####[facility] [address] [place], [address] RDW SD 54.4 fl High 35.1-43.9 [facility] Comment on above: Performed By: #### L 100.0100, L500.2500, L503.7505 ####[facility] [address] [place], [address] WBC (Bld) [#/Vol] 10.0 10*3/uL Normal 4.4-11.0 [facility] Comment on above: Performed By: #### L 100.0100, L500.2500, L503.7505 ####[facility] [address] [place], [address] Carbon dioxide, total [Moles /volume] in Central venous bloodOrdered By: Kim Price on 05-07-2025 CO2 [Moles/Vol] 41.3 mmol/L High 21.0-32.0 [facility] Cardiology Visit Reporton Cardiology Visit Report Normal [facility] Chest PA and Lateralon 05-07 Chest PA and Lateral Normal [facility] Chloride assayOrdered By: Cedrick Price on 05-07-2025 Chloride [Moles/Vol] 91 mmol/L Low 98-108 [facility] Eosinophil percentageOrdered By: Kim Price on 05-07-2025 Eosinophils/100 WBC (Bld) 0.7 % 0-5 [facility] Erythrocyte distribution wid th ratioOrdered By: Kim Price on 05-07-2025 Erythrocyte distribution width (RBC) [Ratio] 14.6 % 11.6-14.6 [facility] Erythrocyte distribution wid th standard deviationOrdered By: Kim Price on 05-07-2025 Erythrocyte distribution width (RBC) [Ratio] 54.4 fl High 35.1-43.9 [facility] Glomerular filtration rate ( GFR) estimation/1.73 sq m using serum, plasma, or whole bOrdered By: Kim Price on 05-07-2025 GFR/1.73 sq M.predicted among non-blacks MDRD (S/P/Bld) [Vol rate/Area] 95 mL/min/{1.73_m2} >60 [facility] Comment on above: mL/min/1.73m2 CKD-EP I Creatinine Equation (2020) Hematocrit Auto (Bld) [Volum e fraction]Ordered By: Kim Price on 05-07-2025 Hematocrit (Bld) [Volume fraction] 36.9 % Low 37-47 [facility] Hemoglobin measurementOrdere d By: Kmi Price on 05-07-2025 Hemoglobin (Bld) [Mass/Vol] 11.0 g/dL Low 12.0-15.0 [facility] Immature granulocytes/100 WB C Auto (Bld)Ordered By: Kim Price on 05-07-2025 Immature granulocytes/100 WBC (Bld) 0.600 % 0.0-0.9 [facility] Comment on above: IG% - Immature Granu locytes (promyelocytes, myelocytes and metamyelocytes) > 1% indicates that a LEFT SHIFT is Present. L503.7505on 05-07-2025 Natriuretic peptide B (Bld) [Mass/Vol] 2566 pg/mL High <=900 [facility] Comment on above: Result Comment: Hear t Failure Unlikely: < 300 pg/mLHeart Failure Likely< 50 Years: > 450 pg/mL50-75 Years: > 900 pg/mL>75 Years: > 1800 pg/mL Performed By: #### L 100.0100, L500.2500, L503.7505 ####[facility] [address] [place], [address] MCV (mean corpuscular volume ) determinationOrdered By: Kim Price on 05-07-2025 MCV (RBC) [Entitic vol] 101.7 fL High 81-99 [facility] Mean corpuscular hemoglobin (MCH) determinationOrdered By: Kim Price on 05-07-2025 MCH (RBC) [Entitic mass] 30.3 pg 27.0-32.0 [facility] Mean corpuscular hemoglobin concentration (MCHC) determinationOrdered By: Kim Price on 05-07-2025 MCHC (RBC) [Mass/Vol] 29.8 g/dL Low 32-36 [facility] Mean platelet volume determi nationOrdered By: Kim Price on 05-07-2025 Platelet mean volume (Bld) [Entitic vol] 10.6 fL 6.2-12.0 [facility] Monocyte percentageOrdered B y: Kim Price on 05-07-2025 Monocytes/100 WBC (Bld) 8.3 % 0-10 [facility] Natriuretic peptide.B prohor gonzalo N-Terminal [Mass/volume] in Serum or PlasmaOrdered By: Kim Price on 05-07-2025 Natriuretic peptide.B prohormone N-Terminal [Mass/Vol] 2566 pg/mL High <900 [facility] Comment on above: Heart Failure Unlike ly: < 300 pg/mLHeart Failure Likely< 50 Years: > 450 pg/mL50-75 Years: > 900 pg/mL>75 Years: > 1800 pg/mL Neutrophil percentageOrdered By: Kim Price on 05-07-2025 Neutrophils/100 WBC (Bld) 82.0 % High 47-70 [facility] Nucleated red blood cell per centageOrdered By: Kim Price on 05-07-2025 Nucleated RBC/100 WBC (Bld) [Ratio] 0 % 0-5 [facility] Platelet countOrdered By: Cedrick Price on 05-07-2025 Platelets (Bld) [#/Vol] 291 10*3/uL 150-450 [facility] Potassium measurement (mass/ volume)Ordered By: Kim Price on 05-07-2025 Potassium (Unsp spec) [Mass/Vol] 4.3 mmol/L 3.3-5.1 [facility] RBC Auto (Bld) [#/Vol]Ordere d By: Kim Price on 05-07-2025 RBC (Bld) [#/Vol] 3.63 10*6/uL Low 4.2-5.4 [facility] Serum creatinine measurement (mass/volume)Ordered By: Kim Price on 05-07-2025 Creatinine [Mass/Vol] 0.69 mg/dL Low 0.70-1.20 [facility] Serum glucose measurement (m ass/volume)Ordered By: Kim Price on 05-07-2025 Glucose [Mass/Vol] 118 mg/dL High 70-99 [facility] Serum or plasma calcium tad urement (mass/volume)Ordered By: Kim Price on 05-07-2025 Calcium [Mass/Vol] 9.8 mg/dL 7.6-11.0 [facility] Serum or plasma urea nitroge n measurement (mass/volume)Ordered By: Kim Price on 05-07-2025 Urea nitrogen [Mass/Vol] 16 mg/dL 4-19 [facility] Sodium levelOrdered By: Odalys Price on 05-07-2025 Sodium [Moles/Vol] 142 mmol/L 133-145 [facility] White blood cell (WBC) count Ordered By: Kim Price on 05-07-2025 WBC (Bld) [#/Vol] 10.0 10*3/uL 4.4-11.0 [facility] Discharge Instructionon 07-0 1-2025 Discharge Instruction Normal [facility] Absolute lymphocyte countOrd ered By: George Polanco on 04-26-2025 Lymphocytes Auto (Unsp spec) [#/Vol] 0.48 10*3/uL Low 0.83-4.51 [facility] Absolute neutrophil countOrd ered By: George Polanco on 04-26-2025 Neutrophils (Bld) [#/Vol] 8.0 10*3/uL High 2.0-7.7 [facility] Anion gap in Serum or Plasma Ordered By: George Polanco on 04-26-2025 Anion gap [Moles/Vol] 8 mmol/L 5-15 [facility] Automated lymphocyte count a s percentage of total leukocytesOrdered By: George Polanco on 04-26-2025 Lymphocytes/100 WBC Auto (Unsp spec) 5.2 % Low 19-41 [facility] BUN/creatinine ratioOrdered By: George Polanco on 04-26-2025 Urea nitrogen/Creatinine [Mass ratio] 32.1 mg/mg High 10-20 [facility] Basic Metabolic Profile (BMP )on 04-26-2025 BUN/CRE 32.1 RATIO High 10-20 [facility] Comment on above: Performed By: #### L 500.2500, L100.0100 ####[facility] [address] [place], [address] Calcium [Mass/Vol] 9.4 mg/dL Normal 7.6-11.0 [facility] Comment on above: Performed By: #### L 500.2500, L100.0100 ####[facility] [address] [place], [address] Chloride [Moles/Vol] 96 mmol/L Low 98-108 [facility] Comment on above: Performed By: #### L 500.2500, L100.0100 ####[facility] [address] [place], [address] CO2 [Moles/Vol] 37.1 mmol/L High 21.0-32.0 [facility] Comment on above: Performed By: #### L 500.2500, L100.0100 ####[facility] [address] [place], [address] Creatinine [Mass/Vol] 0.72 mg/dL Normal 0.70-1.20 [facility] Comment on above: Performed By: #### L 500.2500, L100.0100 ####[facility] [address] [place], [address] ECRCL 85.43 ml/min Normal 50-250 [facility] Comment on above: Performed By: #### L 500.2500, L100.0100 ####[facility] [address] [place], [address] GAP 8 Normal 5-15 [facility] Comment on above: Performed By: #### L 500.2500, L100.0100 ####[facility] [address] [place], [address] GFR/1.73 sq M.predicted among non-blacks MDRD (S/P/Bld) [Vol rate/Area] 92 mL/min/{1.73_m2} Normal >60 [facility] Comment on above: Result Comment: mL/m in/1.73m2 CKD-EPI Creatinine Equation (2020) Performed By: #### L 500.2500, L100.0100 ####[facility] [address] [place], [address] Glucose [Mass/Vol] 125 mg/dL High 70-99 [facility] Comment on above: Performed By: #### L 500.2500, L100.0100 ####[facility] [address] [place], [address] Potassium [Moles/Vol] 4.6 mmol/L Normal 3.3-5.1 [facility] Comment on above: Performed By: #### L 500.2500, L100.0100 ####[facility] [address] [place], [address] Sodium [Moles/Vol] 142 mmol/L Normal 133-145 [facility] Comment on above: Performed By: #### L 500.2500, L100.0100 ####[facility] [address] [place], [address] Urea nitrogen [Mass/Vol] 23 mg/dL High 4-19 [facility] Comment on above: Performed By: #### L 500.2500, L100.0100 ####[facility] [address] [place], [address] Basophil percentageOrdered B y: George Polanco on 04-26-2024 Basophils/100 WBC (Bld) 0.3 % 0-1 [facility] CBC W/Diff, Automatedon 03-30-2024 Absolute Lymph 0.48 X10 3/uL Low 0.83-4.51 [facility] Comment on above: Performed By: #### L 500.2500, L100.0100 ####[facility] [address] [place], [address] Absolute Neut 8.0 X10 3/uL High 2.0-7.7 [facility] Comment on above: Performed By: #### L 500.2500, L100.0100 ####[facility] [address] [place], [address] Basophils/100 WBC (Bld) 0.3 % Normal 0-1 [facility] Comment on above: Performed By: #### L 500.2500, L100.0100 ####[facility] [address] [place], [address] Eosinophils/100 WBC (Bld) 0.9 % Normal 0-5 [facility] Comment on above: Performed By: #### L 500.2500, L100.0100 ####[facility] [address] [place], [address] Erythrocyte distribution width (RBC) [Ratio] 14.3 % Normal 11.6-14.6 [facility] Comment on above: Performed By: #### L 500.2500, L100.0100 ####[facility] [address] [place], [address] Hematocrit (Bld) [Volume fraction] 38.8 % Normal 37-47 [facility] Comment on above: Performed By: #### L 500.2500, L100.0100 ####[facility] [address] [place], [address] Hemoglobin (Bld) [Mass/Vol] 11.6 g/dL Low 12.0-15.0 [facility] Comment on above: Performed By: #### L 500.2500, L100.0100 ####[facility] [address] [place], [address] IG% 0.700 Normal 0.0-0.9 [facility] Comment on above: Result Comment: IG% - Immature Granulocytes (promyelocytes, myelocytes andmetamyelocytes) > 1% indicates that a LEFT SHIFT is Present. Performed By: #### L 500.2500, L100.0100 ####[facility] [address] [place], [address] Lymphocytes/100 WBC (Bld) 5.2 % Low 19-41 [facility] Comment on above: Performed By: #### L 500.2500, L100.0100 ####[facility] [address] [place], [address] MCH (RBC) [Entitic mass] 30.8 pg Normal 27.0-32.0 [facility] Comment on above: Performed By: #### L 500.2500, L100.0100 ####[facility] [address] [place], [address] MCHC (RBC) [Mass/Vol] 29.9 g/dL Low 32-36 [facility] Comment on above: Performed By: #### L 500.2500, L100.0100 ####[facility] [address] [place], [address] MCV (RBC) [Entitic vol] 102.9 fL High 81-99 [facility] Comment on above: Performed By: #### L 500.2500, L100.0100 ####[facility] [address] [place], [address] Monocytes/100 WBC (Bld) 5.9 % Normal 0-10 [facility] Comment on above: Performed By: #### L 500.2500, L100.0100 ####[facility] [address] [place], [address] Neutrophils/100 WBC (Bld) 87.0 % High 47-70 [facility] Comment on above: Performed By: #### L 500.2500, L100.0100 ####[facility] [address] [place], [address] Nucleated RBC (Bld) [#/Vol] 0 10*3/uL Normal 0-5 [facility] Comment on above: Performed By: #### L 500.2500, L100.0100 ####[facility] [address] [place], [address] Platelet mean volume (Bld) [Entitic vol] 11.1 fL Normal 6.2-12.0 [facility] Comment on above: Performed By: #### L 500.2500, L100.0100 ####[facility] [address] [place], [address] Platelets (Bld) [#/Vol] 266 10*3/uL Normal 150-450 [facility] Comment on above: Performed By: #### L 500.2500, L100.0100 ####[facility] [address] [place], [address] RBC (Bld) [#/Vol] 3.77 10*6/uL Low 4.2-5.4 [facility] Comment on above: Performed By: #### L 500.2500, L100.0100 ####[facility] [address] [place], [address] RDW SD 54.2 fl High 35.1-43.9 [facility] Comment on above: Performed By: #### L 500.2500, L100.0100 ####[facility] [address] [place], [address] WBC (Bld) [#/Vol] 9.2 10*3/uL Normal 4.4-11.0 [facility] Comment on above: Performed By: #### L 500.2500, L100.0100 ####[facility] [address] [place], [address] Carbon dioxide, total [Moles /volume] in Central venous bloodOrdered By: George Polanco on 04-26-2025 CO2 [Moles/Vol] 37.1 mmol/L High 21.0-32.0 [facility] Chloride assayOrdered By: Ashley Polanco on 04-26-2025 Chloride [Moles/Vol] 96 mmol/L Low 98-108 [facility] Discharge Instructionon 06-3 Discharge Instruction Normal [facility] Eosinophil percentageOrdered By: George Polanco on 04-26-2025 Eosinophils/100 WBC (Bld) 0.9 % 0-5 [facility] Erythrocyte distribution wid th ratioOrdered By: George Polanco on 04-26-2025 Erythrocyte distribution width (RBC) [Ratio] 14.3 % 11.6-14.6 [facility] Erythrocyte distribution wid th standard deviationOrdered By: George Polanco on 04-26-2025 Erythrocyte distribution width (RBC) [Ratio] 54.2 fl High 35.1-43.9 [facility] Glomerular filtration rate ( GFR) estimation/1.73 sq m using serum, plasma, or whole bOrdered By: George Polanco on 04-26-2025 GFR/1.73 sq M.predicted among non-blacks MDRD (S/P/Bld) [Vol rate/Area] 92 mL/min/{1.73_m2} >60 [facility] Comment on above: mL/min/1.73m2 CKD-EP I Creatinine Equation (2020) Hematocrit Auto (Bld) [Volum e fraction]Ordered By: George Polanco on 04-26-2025 Hematocrit (Bld) [Volume fraction] 38.8 % 37-47 [facility] Hemoglobin measurementOrdere d By: George Polanco on 04-26-2025 Hemoglobin (Bld) [Mass/Vol] 11.6 g/dL Low 12.0-15.0 [facility] Immature granulocytes/100 WB C Auto (Bld)Ordered By: George Polanco on 04-26-2025 Immature granulocytes/100 WBC (Bld) 0.700 % 0.0-0.9 [facility] Comment on above: IG% - Immature Granu locytes (promyelocytes, myelocytes and metamyelocytes) > 1% indicates that a LEFT SHIFT is Present. MCV (mean corpuscular volume ) determinationOrdered By: George Polanco on 04-26-2025 MCV (RBC) [Entitic vol] 102.9 fL High 81-99 [facility] Mean corpuscular hemoglobin (MCH) determinationOrdered By: George Polanco on 04-26-2025 MCH (RBC) [Entitic mass] 30.8 pg 27.0-32.0 [facility] Mean corpuscular hemoglobin concentration (MCHC) determinationOrdered By: George Polanco on 04-26-2025 MCHC (RBC) [Mass/Vol] 29.9 g/dL Low 32-36 [facility] Mean platelet volume determi nationOrdered By: George Polanco on 04-26-2025 Platelet mean volume (Bld) [Entitic vol] 11.1 fL 6.2-12.0 [facility] Monocyte percentageOrdered B y: George Polanco on 04-26-2025 Monocytes/100 WBC (Bld) 5.9 % 0-10 [facility] Neutrophil percentageOrdered By: George Polanco on 04-26-2025 Neutrophils/100 WBC (Bld) 87.0 % High 47-70 [facility] Nucleated red blood cell per centageOrdered By: George Polanco on 04-26-2025 Nucleated RBC/100 WBC (Bld) [Ratio] 0 % 0-5 [facility] Platelet countOrdered By: Ashley Polacno on 04-26-2025 Platelets (Bld) [#/Vol] 266 10*3/uL 150-450 [facility] Potassium measurement (mass/ volume)Ordered By: George Polanco on 04-26-2025 Potassium (Unsp spec) [Mass/Vol] 4.6 mmol/L 3.3-5.1 [facility] RBC Auto (Bld) [#/Vol]Ordere d By: George Polanco on 04-26-2025 RBC (Bld) [#/Vol] 3.77 10*6/uL Low 4.2-5.4 [facility] Serum creatinine measurement (mass/volume)Ordered By: George Polanco on 04-26-2025 Creatinine [Mass/Vol] 0.72 mg/dL 0.70-1.20 [facility] Serum glucose measurement (m ass/volume)Ordered By: George Polanco on 04-26-2025 Glucose [Mass/Vol] 125 mg/dL High 70-99 [facility] Serum or plasma calcium tad urement (mass/volume)Ordered By: George Polanco on 04-26-2025 Calcium [Mass/Vol] 9.4 mg/dL 7.6-11.0 [facility] Serum or plasma urea nitroge n measurement (mass/volume)Ordered By: George Polanco on 04-26-2025 Urea nitrogen [Mass/Vol] 23 mg/dL High 4-19 [facility] Sodium levelOrdered By: Orlando Polanco on 04-26-2025 Sodium [Moles/Vol] 142 mmol/L 133-145 [facility] White blood cell (WBC) count Ordered By: George Polanco on 04-26-2025 WBC (Bld) [#/Vol] 9.2 10*3/uL 4.4-11.0 [facility] Basic Metabolic Profile (BMP )on 04-25-2025 BUN/CRE 25.0 RATIO High 10-20 [facility] Comment on above: Performed By: #### L 100.0100, L500.2500 ####[facility] [address] [place], [address] Calcium [Mass/Vol] 9.3 mg/dL Normal 7.6-11.0 [facility] Comment on above: Performed By: #### L 100.0100, L500.2500 ####[facility] [address] [place], [address] Chloride [Moles/Vol] 95 mmol/L Low 98-108 [facility] Comment on above: Performed By: #### L 100.0100, L500.2500 ####[facility] [address] [place], [address] CO2 [Moles/Vol] 36.5 mmol/L High 21.0-32.0 [facility] Comment on above: Performed By: #### L 100.0100, L500.2500 ####[facility] [address] [place], [address] Creatinine [Mass/Vol] 0.67 mg/dL Low 0.70-1.20 [facility] Comment on above: Performed By: #### L 100.0100, L500.2500 ####[facility] [address] [place], [address] ECRCL 84.48 ml/min Normal 50-250 [facility] Comment on above: Performed By: #### L 100.0100, L500.2500 ####[facility] [address] [place], [address] GAP 9 Normal 5-15 [facility] Comment on above: Performed By: #### L 100.0100, L500.2500 ####[facility] [address] [place], [address] GFR/1.73 sq M.predicted among non-blacks MDRD (S/P/Bld) [Vol rate/Area] 96 mL/min/{1.73_m2} Normal >60 [facility] Comment on above: Result Comment: mL/m in/1.73m2 CKD-EPI Creatinine Equation (2020) Performed By: #### L 100.0100, L500.2500 ####[facility] [address] [place], [address] Glucose [Mass/Vol] 130 mg/dL High 70-99 [facility] Comment on above: Performed By: #### L 100.0100, L500.2500 ####[facility] [address] [place], [address] Potassium [Moles/Vol] 4.3 mmol/L Normal 3.3-5.1 [facility] Comment on above: Performed By: #### L 100.0100, L500.2500 ####[facility] [address] [place], [address] Sodium [Moles/Vol] 141 mmol/L Normal 133-145 [facility] Comment on above: Performed By: #### L 100.0100, L500.2500 ####[facility] [address] [place], [address] Urea nitrogen [Mass/Vol] 17 mg/dL Normal 4-19 [facility] Comment on above: Performed By: #### L 100.0100, L500.2500 ####[facility] [address] [place], [address] CBC W/Diff, Automatedon -2 Absolute Lymph 0.55 X10 3/uL Low 0.83-4.51 [facility] Comment on above: Performed By: #### L 100.0100, L500.2500 ####[facility] [address] [place], [address] Absolute Neut 7.5 X10 3/uL Normal 2.0-7.7 [facility] Comment on above: Performed By: #### L 100.0100, L500.2500 ####[facility] [address] [place], [address] Basophils/100 WBC (Bld) 0.5 % Normal 0-1 [facility] Comment on above: Performed By: #### L 100.0100, L500.2500 ####[facility] [address] [place], [address] Eosinophils/100 WBC (Bld) 1.0 % Normal 0-5 [facility] Comment on above: Performed By: #### L 100.0100, L500.2500 ####[facility] [address] [place], [address] Erythrocyte distribution width (RBC) [Ratio] 14.5 % Normal 11.6-14.6 [facility] Comment on above: Performed By: #### L 100.0100, L500.2500 ####[facility] [address] [place], [address] Hematocrit (Bld) [Volume fraction] 39.3 % Normal 37-47 [facility] Comment on above: Performed By: #### L 100.0100, L500.2500 ####[facility] [address] [place], [address] Hemoglobin (Bld) [Mass/Vol] 11.9 g/dL Low 12.0-15.0 [facility] Comment on above: Performed By: #### L 100.0100, L500.2500 ####[facility] [address] [place], [address] IG% 0.300 Normal 0.0-0.9 [facility] Comment on above: Result Comment: IG% - Immature Granulocytes (promyelocytes, myelocytes andmetamyelocytes) > 1% indicates that a LEFT SHIFT is Present. Performed By: #### L 100.0100, L500.2500 ####[facility] [address] [place], [address] Lymphocytes/100 WBC (Bld) 6.3 % Low 19-41 [facility] Comment on above: Performed By: #### L 100.0100, L500.2500 ####[facility] [address] [place], [address] MCH (RBC) [Entitic mass] 30.9 pg Normal 27.0-32.0 [facility] Comment on above: Performed By: #### L 100.0100, L500.2500 ####[facility] [address] [place], [address] MCHC (RBC) [Mass/Vol] 30.3 g/dL Low 32-36 [facility] Comment on above: Performed By: #### L 100.0100, L500.2500 ####[facility] [address] [place], [address] MCV (RBC) [Entitic vol] 102.1 fL High 81-99 [facility] Comment on above: Performed By: #### L 100.0100, L500.2500 ####[facility] [address] [place], [address] Monocytes/100 WBC (Bld) 6.2 % Normal 0-10 [facility] Comment on above: Performed By: #### L 100.0100, L500.2500 ####[facility] [address] [place], [address] Neutrophils/100 WBC (Bld) 85.7 % High 47-70 [facility] Comment on above: Performed By: #### L 100.0100, L500.2500 ####[facility] [address] [place], [address] Nucleated RBC (Bld) [#/Vol] 0 10*3/uL Normal 0-5 [facility] Comment on above: Performed By: #### L 100.0100, L500.2500 ####[facility] [address] [place], [address] Platelet mean volume (Bld) [Entitic vol] 10.1 fL Normal 6.2-12.0 [facility] Comment on above: Performed By: #### L 100.0100, L500.2500 ####[facility] [address] [place], [address] Platelets (Bld) [#/Vol] 286 10*3/uL Normal 150-450 [facility] Comment on above: Performed By: #### L 100.0100, L500.2500 ####[facility] [address] [place], [address] RBC (Bld) [#/Vol] 3.85 10*6/uL Low 4.2-5.4 [facility] Comment on above: Performed By: #### L 100.0100, L500.2500 ####[facility] [address] [place], [address] RDW SD 54.5 fl High 35.1-43.9 [facility] Comment on above: Performed By: #### L 100.0100, L500.2500 ####[facility] [address] [place], [address] WBC (Bld) [#/Vol] 8.7 10*3/uL Normal 4.4-11.0 [facility] Comment on above: Performed By: #### L 100.0100, L500.2500 ####[facility] [address] [place], [address] Bilirubin, totalOrdered By: Virginia Henriquez on 04-24-2025 Bilirubin [Mass/Vol] 0.44 mg/dL 0.00-1.30 [facility] CBC W/Diff, Automatedon 06-2 Absolute Lymph 0.58 X10 3/uL Low 0.83-4.51 [facility] Comment on above: Performed By: #### L 500.4050, L500.4100, L100.0100, L501.9520 ####[facility] [address] [place], [address] Absolute Neut 7.1 X10 3/uL Normal 2.0-7.7 [facility] Comment on above: Performed By: #### L 500.4050, L500.4100, L100.0100, L501.9520 ####[facility] [address] [place], [address] Basophils/100 WBC (Bld) 0.5 % Normal 0-1 [facility] Comment on above: Performed By: #### L 500.4050, L500.4100, L100.0100, L501.9520 ####[facility] [address] [place], [address] Eosinophils/100 WBC (Bld) 1.3 % Normal 0-5 [facility] Comment on above: Performed By: #### L 500.4050, L500.4100, L100.0100, L501.9520 ####[facility] [address] [place], [address] Erythrocyte distribution width (RBC) [Ratio] 14.3 % Normal 11.6-14.6 [facility] Comment on above: Performed By: #### L 500.4050, L500.4100, L100.0100, L501.9520 ####[facility] [address] [place], [address] Hematocrit (Bld) [Volume fraction] 37.8 % Normal 37-47 [facility] Comment on above: Performed By: #### L 500.4050, L500.4100, L100.0100, L501.9520 ####[facility] [address] [place], [address] Hemoglobin (Bld) [Mass/Vol] 11.5 g/dL Low 12.0-15.0 [facility] Comment on above: Performed By: #### L 500.4050, L500.4100, L100.0100, L501.9520 ####[facility] [address] [place], [address] IG% 0.200 Normal 0.0-0.9 [facility] Comment on above: Result Comment: IG% - Immature Granulocytes (promyelocytes, myelocytes andmetamyelocytes) > 1% indicates that a LEFT SHIFT is Present. Performed By: #### L 500.4050, L500.4100, L100.0100, L501.9520 ####[facility] [address] [place], [address] Lymphocytes/100 WBC (Bld) 6.8 % Low 19-41 [facility] Comment on above: Performed By: #### L 500.4050, L500.4100, L100.0100, L501.9520 ####[facility] [address] [place], [address] MCH (RBC) [Entitic mass] 30.7 pg Normal 27.0-32.0 [facility] Comment on above: Performed By: #### L 500.4050, L500.4100, L100.0100, L501.9520 ####[facility] [address] [place], [address] MCHC (RBC) [Mass/Vol] 30.4 g/dL Low 32-36 [facility] Comment on above: Performed By: #### L 500.4050, L500.4100, L100.0100, L501.9520 ####[facility] [address] [place], [address] MCV (RBC) [Entitic vol] 100.8 fL High 81-99 [facility] Comment on above: Performed By: #### L 500.4050, L500.4100, L100.0100, L501.9520 ####[facility] [address] [place], [address] Monocytes/100 WBC (Bld) 8.0 % Normal 0-10 [facility] Comment on above: Performed By: #### L 500.4050, L500.4100, L100.0100, L501.9520 ####[facility] [address] [place], [address] Neutrophils/100 WBC (Bld) 83.2 % High 47-70 [facility] Comment on above: Performed By: #### L 500.4050, L500.4100, L100.0100, L501.9520 ####[facility] [address] [place], [address] Nucleated RBC (Bld) [#/Vol] 0 10*3/uL Normal 0-5 [facility] Comment on above: Performed By: #### L 500.4050, L500.4100, L100.0100, L501.9520 ####[facility] [address] [place], [address] Platelet mean volume (Bld) [Entitic vol] 10.9 fL Normal 6.2-12.0 [facility] Comment on above: Performed By: #### L 500.4050, L500.4100, L100.0100, L501.9520 ####[facility] [address] [place], [address] Platelets (Bld) [#/Vol] 276 10*3/uL Normal 150-450 [facility] Comment on above: Performed By: #### L 500.4050, L500.4100, L100.0100, L501.9520 ####[facility] [address] [place], [address] RBC (Bld) [#/Vol] 3.75 10*6/uL Low 4.2-5.4 [facility] Comment on above: Performed By: #### L 500.4050, L500.4100, L100.0100, L501.9520 ####[facility] [address] [place], [address] RDW SD 52.5 fl High 35.1-43.9 [facility] Comment on above: Performed By: #### L 500.4050, L500.4100, L100.0100, L501.9520 ####[facility] [address] [place], [address] WBC (Bld) [#/Vol] 8.5 10*3/uL Normal 4.4-11.0 [facility] Comment on above: Performed By: #### L 500.4050, L500.4100, L100.0100, L501.9520 ####[facility] [address] [place], [address] Calculated very low density lipoprotein (VLDL) cholesterol measurementOrdered By: Virginia Henriquez on 04-24-2025 Calculated very low density lipoprotein (VLDL) cholesterol measurement 19 mg/dL 5-40 [facility] Comprehensive Metabolic Prof ilon 04-24-2025 Albumin [Mass/Vol] 3.3 g/dL Low 3.4-4.8 [facility] Comment on above: Order Comment: Comme nts: Fasting Lipid Profile Performed By: #### L 500.4050, L500.4100, L100.0100, L501.9520 ####[facility] [address] [place], [address] Albumin/Globulin [Mass ratio] 1.0 {ratio} Normal 0.9-2.4 [facility] Comment on above: Order Comment: Comme nts: Fasting Lipid Profile Performed By: #### L 500.4050, L500.4100, L100.0100, L501.9520 ####[facility] [address] [place], [address] ALK PHOS 112 U/L High 35-104 [facility] Comment on above: Order Comment: Comme nts: Fasting Lipid Profile Performed By: #### L 500.4050, L500.4100, L100.0100, L501.9520 ####[facility] [address] [place], [address] ALT [Catalytic activity/Vol] 30 U/L Normal <=34 [facility] Comment on above: Order Comment: Comme nts: Fasting Lipid Profile Performed By: #### L 500.4050, L500.4100, L100.0100, L501.9520 ####[facility] [address] [place], [address] AST [Catalytic activity/Vol] 21 U/L Normal <=31 [facility] Comment on above: Order Comment: Comme nts: Fasting Lipid Profile Performed By: #### L 500.4050, L500.4100, L100.0100, L501.9520 ####[facility] [address] [place], [address] Bilirubin [Mass/Vol] 0.44 mg/dL Normal 0.00-1.30 [facility] Comment on above: Order Comment: Comme nts: Fasting Lipid Profile Performed By: #### L 500.4050, L500.4100, L100.0100, L501.9520 ####[facility] [address] [place], [address] BUN/CRE 20.9 RATIO High 10-20 [facility] Comment on above: Order Comment: Comme nts: Fasting Lipid Profile Performed By: #### L 500.4050, L500.4100, L100.0100, L501.9520 ####[facility] [address] [place], [address] Calcium [Mass/Vol] 9.4 mg/dL Normal 7.6-11.0 [facility] Comment on above: Order Comment: Comme nts: Fasting Lipid Profile Performed By: #### L 500.4050, L500.4100, L100.0100, L501.9520 ####[facility] [address] [place], [address] Chloride [Moles/Vol] 100 mmol/L Normal 98-108 [facility] Comment on above: Order Comment: Comme nts: Fasting Lipid Profile Performed By: #### L 500.4050, L500.4100, L100.0100, L501.9520 ####[facility] [address] [place], [address] CO2 [Moles/Vol] 38.0 mmol/L High 21.0-32.0 [facility] Comment on above: Order Comment: Comme nts: Fasting Lipid Profile Performed By: #### L 500.4050, L500.4100, L100.0100, L501.9520 ####[facility] [address] [place], [address] Creatinine [Mass/Vol] 0.63 mg/dL Low 0.70-1.20 [facility] Comment on above: Order Comment: Comme nts: Fasting Lipid Profile Performed By: #### L 500.4050, L500.4100, L100.0100, L501.9520 ####[facility] [address] [place], [address] ECRCL 85.25 ml/min Normal 50-250 [facility] Comment on above: Order Comment: Comme nts: Fasting Lipid Profile Performed By: #### L 500.4050, L500.4100, L100.0100, L501.9520 ####[facility] [address] [place], [address] GAP 8 Normal 5-15 [facility] Comment on above: Order Comment: Comme nts: Fasting Lipid Profile Performed By: #### L 500.4050, L500.4100, L100.0100, L501.9520 ####[facility] [address] [place], [address] GFR/1.73 sq M.predicted among non-blacks MDRD (S/P/Bld) [Vol rate/Area] 97 mL/min/{1.73_m2} Normal >60 [facility] Comment on above: Order Comment: Comme nts: Fasting Lipid Profile Result Comment: mL/m in/1.73m2 CKD-EPI Creatinine Equation (2020) Performed By: #### L 500.4050, L500.4100, L100.0100, L501.9520 ####[facility] [address] [place], [address] Globulin (S) [Mass/Vol] 3.3 g/dL Normal 2.2-4.2 [facility] Comment on above: Order Comment: Comme nts: Fasting Lipid Profile Performed By: #### L 500.4050, L500.4100, L100.0100, L501.9520 ####[facility] [address] [place], [address] Glucose [Mass/Vol] 144 mg/dL High 70-99 [facility] Comment on above: Order Comment: Comme nts: Fasting Lipid Profile Performed By: #### L 500.4050, L500.4100, L100.0100, L501.9520 ####[facility] [address] [place], [address] Potassium [Moles/Vol] 4.6 mmol/L Normal 3.3-5.1 [facility] Comment on above: Order Comment: Comme nts: Fasting Lipid Profile Performed By: #### L 500.4050, L500.4100, L100.0100, L501.9520 ####[facility] [address] [place], [address] Sodium [Moles/Vol] 146 mmol/L High 133-145 [facility] Comment on above: Order Comment: Comme nts: Fasting Lipid Profile Performed By: #### L 500.4050, L500.4100, L100.0100, L501.9520 ####[facility] [address] [place], [address] T PROT 6.6 g/dL Normal 5.9-8.4 [facility] Comment on above: Order Comment: Comme nts: Fasting Lipid Profile Performed By: #### L 500.4050, L500.4100, L100.0100, L501.9520 ####[facility] [address] [place], [address] Urea nitrogen [Mass/Vol] 13 mg/dL Normal 4-19 [facility] Comment on above: Order Comment: Comme nts: Fasting Lipid Profile Performed By: #### L 500.4050, L500.4100, L100.0100, L501.9520 ####[facility] [address] [place], [address] L499.0043on 04-24-2025 Trop T High Sen < 6 Normal <=14 [facility] Comment on above: Performed By: #### L 499.0043 ####[facility] [address] [place], [address] LDL calc ser/plasOrdered By: Virginia Henriquez on 04-24-2025 Cholesterol in LDL [Mass/Vol] 81 mg/dL [facility] Comment on above: Scxnondwbr=779-457 m g/dL & Higher Sojb=341 mg/dL or greater Laboratory - Chemistry and C hemistry - challengeOrdered By: Virginia Henriquez on 04-24-2025 AST [Catalytic activity/Vol] 21 U/L <32 [facility] Lipid Profileon 04-24-2025 CHOL:HDL 3.62 Normal [facility] Comment on above: Order Comment: Comme nts: Fasting Lipid Profile Performed By: #### L 500.4050, L500.4100, L100.0100, L501.9520 ####[facility] [address] [place], [address] Cholesterol [Mass/Vol] 138 mg/dL Normal <=200 [facility] Comment on above: Order Comment: Comme nts: Fasting Lipid Profile Result Comment: Chol esterol level, Desirable <200 mg/dLBorderline high cholesterol 200-239 mg/dLHigh cholesterol >=240 mg/dLRecommendations of the NCEP Adult Treatment Panel for thefollowing risk-cutoff thresholds for the [place] [facility]. Performed By: #### L 500.4050, L500.4100, L100.0100, L501.9520 ####[facility] [address] [place], [address] Cholesterol in HDL [Mass/Vol] 38 mg/dL Low [facility] Comment on above: Order Comment: Comme nts: Fasting Lipid Profile Result Comment: Monika onal Cholesterol Education Program (NCEP) guidelines:<40 mg/dL: Low HDL-cholesterol (major risk factor for CHD)>= 60 mg/dL: High HDL-cholesterol (negative risk factor forCHD)HDL-cholesterol is affected by a number of factors, e.g.smoking, exercise, hormones, sex and age. Performed By: #### L 500.4050, L500.4100, L100.0100, L501.9520 ####[facility] [address] [place], [address] Cholesterol in LDL [Mass/Vol] 81 mg/dL Normal [facility] Comment on above: Order Comment: Comme nts: Fasting Lipid Profile Result Comment: Bord xgsnzj=135-395 mg/dL Higher Hlsf=648 mg/dL or greater Performed By: #### L 500.4050, L500.4100, L100.0100, L501.9520 ####[facility] [address] [place], [address] Cholesterol in VLDL [Mass/Vol] 19 mg/dL Normal 5-40 [facility] Comment on above: Order Comment: Comme nts: Fasting Lipid Profile Performed By: #### L 500.4050, L500.4100, L100.0100, L501.9520 ####[facility] [address] [place], [address] Triglyceride [Mass/Vol] 93 mg/dL Normal [facility] Comment on above: Order Comment: Comme nts: Fasting Lipid Profile Result Comment: The drugs N-Acetylcysteine and Metamizole may falselydepress this assay.Normal range: <150 mg/dLBorderline High: 150-199 mg/dLHigh: 200-499 mg/dLVery High: >500 mg/dL Performed By: #### L 500.4050, L500.4100, L100.0100, L501.9520 ####[facility] [address] [place], [address] RESPIRATORY PANEL MOLECULARo n 04-24-2025 RP PANEL Normal [facility] Comment on above: Performed By: #### M 100.638 ####[facility] [address] [place], [address] Respiratory pathogens detect ion panel by molecular detection methodOrdered By: Virginia Henriquez on 04-24-2025 Respiratory pathogens DNA and RNA panel RENETTA+probe (Resp) [facility] Screening total cholesterol/ high density lipoprotein (HDL) cholesterol ratioOrdered By: Virginia Martinez on 04-24-2025 Cholesterol.total/Cho lesterol in HDL [Mass ratio] 3.62 {ratio} [facility] Serum globulin measurementOr dered By: Virginia Henriquez on 04-24-2025 Globulin (S) [Mass/Vol] 3.3 g/dL 2.2-4.2 [facility] Serum or plasma alanine lindsey otransferase (ALT) measurementOrdered By: Virginia Henriquez on 04-24-2025 ALT [Catalytic activity/Vol] 30 U/L <35 [facility] Serum or plasma albumin tad urement (mass/volume)Ordered By: Virginia Henriquez on 04-24-2025 Albumin [Mass/Vol] 3.3 g/dL Low 3.4-4.8 [facility] Serum or plasma albumin/glob ulin mass ratioOrdered By: Virginia Henriquez on 04-24-2025 Albumin/Globulin [Mass ratio] 1.0 {ratio} 0.9-2.4 [facility] Serum or plasma alkaline zita sphatase measurementOrdered By: Virginia Henriquez on 04-24-2025 ALP [Catalytic activity/Vol] 112 U/L High 35-104 [facility] Serum or plasma cholesterol in HDL measurement (mass/volume)Ordered By: Virginia Henriquez on 04-24-2025 Cholesterol in HDL [Mass/Vol] 38 mg/dL Low >40 [facility] Comment on above: National Cholesterol Education Program (NCEP) guidelines:<40 mg/dL: Low HDL-cholesterol (major risk factor for CHD)>= 60 mg/dL: High HDL-cholesterol (negative risk factor for CHD)HDL-cholesterol is affected by a number of factors, e.g. smoking, exercise, hormones, sex and age. Serum or plasma cholesterol measurement (mass/volume)Ordered By: Virginia Henriquez on 04-24-2025 Cholesterol [Mass/Vol] 138 mg/dL <201 [facility] Comment on above: Cholesterol level, D esirable <200 mg/dLBorderline high cholesterol 200-239 mg/dLHigh cholesterol >=240 mg/dLRecommendations of the NCEP Adult Treatment Panel for the following risk-cutoff thresholds for the [place] population. TSH DL <= 0.005 mIU/L QnOrde red By: Virginia Henriquez on 04-24-2025 TSH Qn 1.970 uIU/mL 0.300-4.20 0 [facility] Thyroid Stim Hormone (TSH)on 04-24-2025 TSH 1.970 uIU/mL Normal 0.300-4.20 0 [facility] Comment on above: Order Comment: Comme nts: Fasting Lipid Profile Performed By: #### L 500.4050, L500.4100, L100.0100, L501.9520 ####[facility] [address] [place], [place], [id number] Total proteinOrdered By: Greg Henriquez on 04-24-2025 Protein [Mass/Vol] 6.6 g/dL 5.9-8.4 [facility] Triglycerides measurementOrd ered By: Virginia Henriquez on 04-24-2025 Triglyceride [Mass/Vol] 93 mg/dL <199 [facility] Comment on above: The drugs N-Acetylcy steine and Metamizole may falsely depress this assay. Normal range: <150 mg/dLBorderline High: 150-199 mg/dLHigh: 200-499 mg/dLVery High: >500 mg/dL Absolute lymphocyte countOrd ered By: Cele Morgan on 04-23-2025 Lymphocytes Auto (Unsp spec) [#/Vol] 0.71 10*3/uL Low 0.83-4.51 [facility] Absolute neutrophil countOrd ered By: Cele Morgan on 04-23-2025 Neutrophils (Bld) [#/Vol] 7.6 10*3/uL 2.0-7.7 [facility] Anion gap in Serum or Plasma Ordered By: Cele Morgan on 04-23-2025 Anion gap [Moles/Vol] 10 mmol/L 5-15 [facility] Automated lymphocyte count a s percentage of total leukocytesOrdered By: Cele Morgan on 04-23-2025 Lymphocytes/100 WBC Auto (Unsp spec) 7.9 % Low 19-41 [facility] BUN/creatinine ratioOrdered By: Cele Morgan on 04-23-2025 Urea nitrogen/Creatinine [Mass ratio] 22.2 mg/mg High 10-20 [facility] Basic Metabolic Profile (BMP )on 04-23-2025 BUN/CRE 22.2 RATIO High - [facility] Comment on above: Performed By: #### L 500.2500, L100.0100 ####[facility] [address] [place], [place], [id number] Calcium [Mass/Vol] 9.6 mg/dL Normal 7.6-11.0 [facility] Comment on above: Performed By: #### L 500.2500, L100.0100 ####[facility] [address] [place], [address] Chloride [Moles/Vol] 96 mmol/L Low 98-108 [facility] Comment on above: Performed By: #### L 500.2500, L100.0100 ####[facility] [address] [place], [address] CO2 [Moles/Vol] 38.0 mmol/L High 21.0-32.0 [facility] Comment on above: Performed By: #### L 500.2500, L100.0100 ####[facility] [address] [place], [address] Creatinine [Mass/Vol] 0.65 mg/dL Low 0.70-1.20 [facility] Comment on above: Performed By: #### L 500.2500, L100.0100 ####[facility] [address] [place], [address] ECRCL 85.20 ml/min Normal 50-250 [facility] Comment on above: Performed By: #### L 500.2500, L100.0100 ####[facility] [address] [place], [address] GAP 10 Normal 5-15 [facility] Comment on above: Performed By: #### L 500.2500, L100.0100 ####[facility] [address] [place], [address] GFR/1.73 sq M.predicted among non-blacks MDRD (S/P/Bld) [Vol rate/Area] 97 mL/min/{1.73_m2} Normal >60 [facility] Comment on above: Result Comment: mL/m in/1.73m2 CKD-EPI Creatinine Equation (2020) Performed By: #### L 500.2500, L100.0100 ####[facility] [address] [place], [address] Glucose [Mass/Vol] 110 mg/dL High 70-99 [facility] Comment on above: Performed By: #### L 500.2500, L100.0100 ####[facility] [address] [place], [address] Potassium [Moles/Vol] 3.9 mmol/L Normal 3.3-5.1 [facility] Comment on above: Performed By: #### L 500.2500, L100.0100 ####[facility] [address] [place], [address] Sodium [Moles/Vol] 145 mmol/L Normal 133-145 [facility] Comment on above: Performed By: #### L 500.2500, L100.0100 ####[facility] [address] [place], [address] Urea nitrogen [Mass/Vol] 14 mg/dL Normal 4-19 [facility] Comment on above: Performed By: #### L 500.2500, L100.0100 ####[facility] [address] [place], [address] Basophil percentageOrdered B y: Cele Morgan on 04-23-2025 Basophils/100 WBC (Bld) 0.6 % 0-1 [facility] Bilirubin Test strip Ql (U)O rdered By: Cele Morgan on 04-23-2025 Bilirubin Ql (U) 1 mg/dL High Negative [facility] Comment on above: COLOR OF URINE MAY A FFECT DIPSTICK RESULTS. Brain/Head without Contrasto n 04-23-2025 Brain/Head without Contrast Normal [facility] CBC W/Diff, Automatedon 03-29 Absolute Lymph 0.71 X10 3/uL Low 0.83-4.51 [facility] Comment on above: Performed By: #### L 500.2500, L100.0100 ####[facility] [address] [place], [address] Absolute Neut 7.6 X10 3/uL Normal 2.0-7.7 [facility] Comment on above: Performed By: #### L 500.2500, L100.0100 ####[facility] [address] [place], [address] Basophils/100 WBC (Bld) 0.6 % Normal 0-1 [facility] Comment on above: Performed By: #### L 500.2500, L100.0100 ####[facility] [address] [place], [address] Eosinophils/100 WBC (Bld) 0.8 % Normal 0-5 [facility] Comment on above: Performed By: #### L 500.2500, L100.0100 ####[facility] [address] [place], [address] Erythrocyte distribution width (RBC) [Ratio] 14.2 % Normal 11.6-14.6 [facility] Comment on above: Performed By: #### L 500.2500, L100.0100 ####[facility] [address] [place], [address] Hematocrit (Bld) [Volume fraction] 40.2 % Normal 37-47 [facility] Comment on above: Performed By: #### L 500.2500, L100.0100 ####[facility] [address] [place], [address] Hemoglobin (Bld) [Mass/Vol] 12.7 g/dL Normal 12.0-15.0 [facility] Comment on above: Performed By: #### L 500.2500, L100.0100 ####[facility] [address] [place], [address] IG% 0.300 Normal 0.0-0.9 [facility] Comment on above: Result Comment: IG% - Immature Granulocytes (promyelocytes, myelocytes andmetamyelocytes) > 1% indicates that a LEFT SHIFT is Present. Performed By: #### L 500.2500, L100.0100 ####[facility] [address] [place], [address] Lymphocytes/100 WBC (Bld) 7.9 % Low 19-41 [facility] Comment on above: Performed By: #### L 500.2500, L100.0100 ####[facility] [address] [place], [address] MCH (RBC) [Entitic mass] 31.2 pg Normal 27.0-32.0 [facility] Comment on above: Performed By: #### L 500.2500, L100.0100 ####[facility] [address] [place], [address] MCHC (RBC) [Mass/Vol] 31.6 g/dL Low 32-36 [facility] Comment on above: Performed By: #### L 500.2500, L100.0100 ####[facility] [address] [place], [address] MCV (RBC) [Entitic vol] 98.8 fL Normal 81-99 [facility] Comment on above: Performed By: #### L 500.2500, L100.0100 ####[facility] [address] [place], [address] Monocytes/100 WBC (Bld) 6.6 % Normal 0-10 [facility] Comment on above: Performed By: #### L 500.2500, L100.0100 ####[facility] [address] [place], [address] Neutrophils/100 WBC (Bld) 83.8 % High 47-70 [facility] Comment on above: Performed By: #### L 500.2500, L100.0100 ####[facility] [address] [place], [address] Nucleated RBC (Bld) [#/Vol] 0 10*3/uL Normal 0-5 [facility] Comment on above: Performed By: #### L 500.2500, L100.0100 ####[facility] [address] [place], [address] Platelet mean volume (Bld) [Entitic vol] 10.4 fL Normal 6.2-12.0 [facility] Comment on above: Performed By: #### L 500.2500, L100.0100 ####[facility] [address] [place], [address] Platelets (Bld) [#/Vol] 285 10*3/uL Normal 150-450 [facility] Comment on above: Performed By: #### L 500.2500, L100.0100 ####[facility] [address] [place], [address] RBC (Bld) [#/Vol] 4.07 10*6/uL Low 4.2-5.4 [facility] Comment on above: Performed By: #### L 500.2500, L100.0100 ####[facility] [address] [place], [address] RDW SD 51.3 fl High 35.1-43.9 [facility] Comment on above: Performed By: #### L 500.2500, L100.0100 ####[facility] [address] [place], [address] WBC (Bld) [#/Vol] 9.0 10*3/uL Normal 4.4-11.0 [facility] Comment on above: Performed By: #### L 500.2500, L100.0100 ####[facility] [address] [place], [address] CNOVon 04-23-2025 CNOV Office Visit (FAMPWS ) RAJENDRA LUCERO ([id number]) 1955 F Date Time Provider Department 04/23/25 3:00 PM TYRA CARSON During your visit today, we recorded the following information about you: Pulse Respiration Blood pressure Weight 129/minute 20/minute 122/62 116.2 kg Tyra Carson APRN.PRACTICE NURSE 04/23/2025 4:30 PM Signed This is a [...] week for further evaluation. and Recording using [employer] software for draft documentation of the visit was discussed with the patient/authorized guest services representative; all questions welcomed and answered. Patient/authorized guest services representative agreed to proceed HISTORY OF PRESENT ILLNESS: Linwood was in the hospital in January for new onset of atrial flutter. She was initiated on eliquis and metoprolol and now being seen by cardiology. She was referred to a [facility] cardio electro doc and is in [...] disease) (HCC) 02/03/2010 Coronary artery disease No UT, CHF. No heart cath. Diverticulosis of colon [...] 2027 I (more content not included)... Normal [facility] Carbon dioxide, total [Moles /volume] in Central venous bloodOrdered By: Cele Morgan on 04-23-2025 CO2 [Moles/Vol] 38.0 mmol/L High 21.0-32.0 [facility] Chest PA and Lateralon 04-23 Chest PA and Lateral Normal [facility] Chloride assayOrdered By: Celine Morgan on 04-23-2025 Chloride [Moles/Vol] 96 mmol/L Low 98-108 [facility] Emergency Department Summary on 04-23-2025 Emergency Department Summary Normal [facility] Eosinophil percentageOrdered By: Cele Morgan on 04-23-2025 Eosinophils/100 WBC (Bld) 0.8 % 0-5 [facility] Erythrocyte distribution wid th ratioOrdered By: Cele Morgan on 04-23-2025 Erythrocyte distribution width (RBC) [Ratio] 14.2 % 11.6-14.6 [facility] Erythrocyte distribution wid th standard deviationOrdered By: Cele Morgan on 04-23-2025 Erythrocyte distribution width (RBC) [Ratio] 51.3 fl High 35.1-43.9 [facility] Glomerular filtration rate ( GFR) estimation/1.73 sq m using serum, plasma, or whole bOrdered By: Cele Morgan on 04-23-2025 GFR/1.73 sq M.predicted among non-blacks MDRD (S/P/Bld) [Vol rate/Area] 97 mL/min/{1.73_m2} >60 [facility] Comment on above: mL/min/1.73m2 CKD-EP I Creatinine Equation (2020) H AND P Exam - [facility] 04-23-2025 H&P Exam - Hospitalist Normal [facility] Hematocrit Auto (Bld) [Volum e fraction]Ordered By: Cele Morgan on 04-23-2025 Hematocrit (Bld) [Volume fraction] 40.2 % 37-47 [facility] Hemoglobin measurementOrdere d By: Cele Morgan on 04-23-2025 Hemoglobin (Bld) [Mass/Vol] 12.7 g/dL 12.0-15.0 [facility] Immature granulocytes/100 WB C Auto (Bld)Ordered By: Cele Morgan on 04-23-2025 Immature granulocytes/100 WBC (Bld) 0.300 % 0.0-0.9 [facility] Comment on above: IG% - Immature Granu locytes (promyelocytes, myelocytes and metamyelocytes) > 1% indicates that a LEFT SHIFT is Present. Ketones Test strip Ql (U)Ord ered By: Cele Morgan on 04-23-2025 Ketones Ql (U) 50 mg/dl High Negative [facility] L499.0042on 04-23-2025 Trop T High Sen < 6 Normal <=14 [facility] Comment on above: Performed By: #### L 499.0042 ####[facility] [address] [place], [address] L501.4021on 04-23-2025 Trop T High Sen < 6 Normal <=14 [facility] Comment on above: Performed By: #### L 501.4021 ####[facility] [address] [place], [address] L509.7001on 04-23-2025 Procalcitonin 0.14 ng/mL High <=0.10 [facility] Comment on above: Result Comment: Inte rpretation:<0.10-0.25 ng/mL: Antibiotic therapy discouraged. Bacterialinfection unlikely.0.25-0.50 ng/mL: Antibiotic therapy encouraged. Bacterialinfection possible.>0.50 ng/mL: Antibiotic therapy strongly encouraged.Suggestive of presence of bacterial infection.PCT should always be interpreted in the clinical context ofthe patient. Therefore, clinicians should use the PCTresults in conjunction with other laboratory findings andclinical signs of the patient. Performed By: #### L 509.7001 ####[facility] [address] [place], [address] MCV (mean corpuscular volume ) determinationOrdered By: Cele Morgan on 04-23-2025 MCV (RBC) [Entitic vol] 98.8 fL 81-99 [facility] [facility] Magnesiumon 04-23-2025 Magnesium [Mass/Vol] 1.8 mg/dL Normal 1.5-2.2 [facility] Comment on above: Order Comment: Comme nts: May add to ED labsComments: may add to ED labs Performed By: #### L 501.5205, L501.2300 ####[facility] [address] [place], [place], [address] Magnesium measurement (mass/ volume)Ordered By: Virginia Henriquez on 04-23-2025 Magnesium (Unsp spec) [Mass/Vol] 1.8 mg/dL 1.5-2.2 [facility] Mean corpuscular hemoglobin (MCH) determinationOrdered By: Cele Morgan on 04-23-2025 MCH (RBC) [Entitic mass] 31.2 pg 27.0-32.0 [facility] Mean corpuscular hemoglobin concentration (MCHC) determinationOrdered By: Cele Morgan on 04-23-2025 MCHC (RBC) [Mass/Vol] 31.6 g/dL Low 32-36 [facility] Mean platelet volume determi nationOrdered By: Cele Morgan on 04-23-2025 Platelet mean volume (Bld) [Entitic vol] 10.4 fL 6.2-12.0 [facility] Microscopic analysis of urin e for red blood cells (RBC)Ordered By: Cele Morgan on 04-23-2025 Microscopic analysis of urine for red blood cells (RBC) 0 SEEN /hpf 0-5 [facility] Monocyte percentageOrdered B y: Cele Morgan on 04-23-2025 Monocytes/100 WBC (Bld) 6.6 % 0-10 [facility] Mucus LM Ql (Urine sed)Order ed By: Cele Morgan on 04-23-2025 Mucus Ql (Urine sed) 2+ /hpf [facility] Neutrophil percentageOrdered By: Cele Morgan on 04-23-2025 Neutrophils/100 WBC (Bld) 83.8 % High 47-70 [facility] Nitrite Test strip Ql (U)Ord ered By: Cele Morgan on 04-23-2025 Nitrite Ql (U) Negative Negative [facility] Nucleated red blood cell per centageOrdered By: Cele Morgan on 04-23-2025 Nucleated RBC/100 WBC (Bld) [Ratio] 0 % 0-5 [facility] Phosphoruson 04-23-2025 Phosphate [Mass/Vol] 3.6 mg/dL Normal 2.7-4.5 [facility] Comment on above: Order Comment: Comme nts: May add to ED labsComments: may add to ED labs Performed By: #### L 501.5200, L501.2300 ####[facility] [address] [place], [address] Platelet countOrdered By: Celine Morgan on 04-23-2025 Platelets (Bld) [#/Vol] 285 10*3/uL 150-450 [facility] Potassium measurement (mass/ volume)Ordered By: Cele Morgan on 04-23-2025 Potassium (Unsp spec) [Mass/Vol] 3.9 mmol/L 3.3-5.1 [facility] Procalcitonin [Mass/volume] in Serum or Plasma by ImmunoassayOrdered By: Virginia Henriquez on 04-23-2025 Procalcitonin IA [Mass/Vol] 0.14 ng/mL High <0.11 [facility] Comment on above: Interpretation:<0.10 -0.25 [...] Protein Ql (U) 30 mg/dl High Negative [facility] RBC Auto (Bld) [#/Vol]Ordere d By: Cele Morgan on 04-23-2025 RBC (Bld) [#/Vol] 4.07 10*6/uL Low 4.2-5.4 [facility] Serum creatinine measurement (mass/volume)Ordered By: Cele Morgan on 04-23-2025 Creatinine [Mass/Vol] 0.65 mg/dL Low 0.70-1.20 [facility] Serum glucose measurement (m ass/volume)Ordered By: Cele Morgan on 04-23-2025 Glucose [Mass/Vol] 110 mg/dL High 70-99 [facility] Serum or plasma calcium tad urement (mass/volume)Ordered By: Cele Morgan on 04-23-2025 Calcium [Mass/Vol] 9.6 mg/dL 7.6-11.0 [facility] Serum or plasma urea nitroge n measurement (mass/volume)Ordered By: Cele Morgan on 04-23-2025 Urea nitrogen [Mass/Vol] 14 mg/dL 4-19 [facility] Sodium levelOrdered By: Len Morgan on 04-23-2025 Sodium [Moles/Vol] 145 mmol/L 133-145 [facility] Squamous epithelial cells de tection in urine sediment by light microscopyOrdered By: Cele Morgan on 04-23-2025 Epithelial cells.squamous LM Ql (Urine sed) 5-10 SEEN /hpf 5-10 [facility] Troponin T.cardiac [Mass/vol ume] in Serum or Plasma by High sensitivity methodOrdered By: Virginia Henriquez on 04-23-2025 Troponin T.cardiac High sensitivity method [Mass/Vol] < 6 ng/L <14 [facility] Troponin T.cardiac [Mass/vol ume] in Serum or Plasma by High sensitivity methodOrdered By: Cele Morgan on 04-23-2025 Troponin T.cardiac High sensitivity method [Mass/Vol] < 6 ng/L <14 [facility] Troponin T.cardiac High sensitivity method [Mass/Vol] < 6 ng/L <14 [facility] Urinalysis, Completeon 04-23 BACTERIA 2+ /hpf Normal None Seen [facility] Comment on above: Order Comment: BENITO CTOR TO SPECIFY Performed By: #### L 400.0001 ####[facility] [address] [place], [address] EPI,SQUAMOUS 5-10 SEEN Normal 5-10 [facility] Comment on above: Order Comment: BENITO CTOR TO SPECIFY Performed By: #### L 400.0001 ####[facility] [address] [place], [address] Mucus Ql (Urine sed) 2+ /hpf Normal [facility] Comment on above: Order Comment: BENITO CTOR TO SPECIFY Performed By: #### L 400.0001 ####[facility] [address] [place], [address] WBC 10-25 SEEN Normal 0-5 [facility] Comment on above: Order Comment: BENITO CTOR TO SPECIFY Performed By: #### L 400.0001 ####[facility] [address] [place], [address] RBC 0 SEEN Normal 0-5 [facility] Comment on above: Order Comment: BENITO CTOR TO SPECIFY Performed By: #### L 400.0001 ####[facility] [address] [place], [address] Urine clarityOrdered By: Humza Morgan on 04-23-2025 Clarity (U) Clear Clear [facility] Urine color determinationOrd ered By: Cele Morgan on 04-23-2025 Color (U) Yellow Yellow [facility] Urine glucose detectionOrder ed By: Cele Morgan on 04-23-2025 Glucose Ql (U) Normal mg/dl Normal [facility] Urine leukocyte esterase det ection by dipstickOrdered By: Cele Morgan on 04-23-2025 Leukocyte esterase Test strip Ql (U) 25 /ul High Negative [facility] Urine pHOrdered By: Glenna Morgan on 04-23-2025 pH (U) 6.0 [pH] 5.0 - 8.0 [facility] Urine sediment bacteria coun t by microscopy (number/high power field)Ordered By: Cele Morgan on 04-23-2025 Bacteria LM.HPF (Urine sed) [#/Area] 2 /[HPF] None Seen [facility] Urine specific gravity measu rementOrdered By: Cele Morgan on 04-23-2025 Specific gravity (U) [Rel density] 1.015 1.002-1.03 0 [facility] Urine urobilinogen measureme ntOrdered By: Cele Morgan on 04-23-2025 Urobilinogen Ql (U) 1 mg/dl High Normal [facility] White blood cell (WBC) count Ordered By: Cele Morgan on 04-23-2025 WBC (Bld) [#/Vol] 9.0 10*3/uL 4.4-11.0 [facility] White blood cell countOrdere d By: Cele Morgan on 04-23-2025 White blood cell count 10-25 SEEN /hpf 0-5 [facility] Bacteria Ur Culton Bacteria identified [...] llection technique or straight catheterization for???urine???collection. Normal [facility] Comment on above: Performed By: #### 6 30-4 ####[facility] LABCLIA [id number] [address] OF [place] CNOVon 04-20-2025 CNOV Office Visit (UCWSTR ) RAJENDRA LUCERO ([id number]) 1955 F Date Time Provider Department 04/20/25 9:45 AM DAMON EUGENE [facility] During your visit today, we recorded the following information about you: Temperature Pulse Respiration Blood pressure 98.4 degrees 94/minute 18/minute 132/80 Weight 117 kg Damon Eugene APRN.PRACTICE NURSE 04/20/2025 10:23 AM Signed [facility] [...] week for further evaluation. and Recording using [employer] software for draft documentation of the visit was discussed with the patient/authorized guest services representative; all questions welcomed and answered. Patient/authorized guest services representative agreed to proceed MDM Procedures Milena Chang LPN 04/20/2025 11:12 AM Signed Addended by: MILENA CHANG on: 04/20/2025 11:12 AM Modules accepted: Orders Allergies As of Date: 04/20/2025 Noted Allergy Reaction ALEVE (NAPROXEN) 05/31/2020 4 - Hives Comments: Hives, edema of hands within 1 hour of use Date Reviewed: 04/20/2025 Reviewed by: Brandyn Schafer MA - Fully Assessed Reason for Visit: Skin Rashes [4234] Cmt: x 2 days mouth and nose thick mucous x 1 week Visit Diagnoses:Acute cystitis with hematuria [N30.01] Candidal intertrigo [B37.2] Confusion [R41.0] Order(s):nitrofurantoin monohydrate and macrocrystal (MACROBID) 100 mg capsuleTake 1 capsule by mouth two times a day for 5 days.Disp: 10 capsuleRfl: 0 UA DIP, URINE (POC) [8876077] Order #: [id number]. #:[id number] nystatin (MYCOSTATIN) creamApply to affected area two times a day for 14 days.Disp: 30 gRfl: 0 BACTERIAL CULTURE, URINE [SQURCUL] Order #: [id number]. #:[id number] Prescriptions as of 04/20/2025 - nitrofurantoin monohydrate [...] as ne (more content not included)... Normal [facility] UA DIP, URINE (POC)on 2024 BILIRUBIN UA (POCT) Small Abnormal Negative [facility] CLARITY UA (POCT) Turbid [facility] COLOR UA (POCT) Dark yellow [facility] GLUCOSE UA (POCT) Negative Negative mg/dL [facility] Hemoglobin Ql (U) Moderate Abnormal Negative [facility] Interpretation and review of laboratory results Abnormal [facility] KETONE UA (POCT) Trace Negative mg/dL [facility] LEUKOCYTES UA (POCT) Negative Negative [facility] NITRITE UA (POCT) Negative Negative [facility] PH UA (POCT) 6 4.5 - 8.0 [facility] Protein Ql (U) 30 mg/dL Abnormal Negative [facility] SPECIFIC GRAVITY UA (POCT) 1.015 1.005 - 1.030 [facility] UROBILINOGEN UA (POCT) 2 Abnormal Normal E.U./dL [facility] Location:[facility], [address] [place] [address], [place], [address] [facility] POINT OF CARE [facility] CNOVon 03-31-2025 CNOV Office Visit (FAMPWS ) RAJENDRA LUCERO ([id number]) 1955 F Date Time Provider Department 03/31/25 1:00 PM JANETTE DAMON During your visit today, we recorded the following information about you: Pulse Respiration Blood pressure Weight 91/minute 18/minute 124/82 119.1 kg Janette Damon APRN.PRACTICE NURSE 03/31/2025 1:06 PM Signed 03/31/2025 Patient presents with: BP Check: Had appointment with cardiology yesterday; MANI Elena Recording using [employer] software for draft documentation of the visit was discussed with the patient/authorized guest services representative; all questions welcomed and answered. Patient/authorized guest services representative agreed to proceed SUBJECTIVE: This is a 69 year old that is here today for Above Complaints.. Atrial Flutter: - Recent consultation with Dr. Elena, who referred her to Dr. Marcos Santos, an ice scraper, for potential ablation. - Dr. Elena indicated [...] heart failure) (HCC) Chronic hypoxemic respiratory failure ([facility]) COPD (chronic obstructive pulmonary disease) ([facility]) 02/03/2010 Coronary artery disease No UT, CHF. No heart cath. Diverticulosis of colon [...] hours as needed for wheezing/shortness of breath. nffobwktznf-jxkfngupv-zcjfwkc r (TRELEGY ELLIPTA) 200-62.5-25 mcg inhalation powder [...] Discussion Nev (more content not included)... Normal [facility] Cardiology Visit Reporton Cardiology Visit Report Normal [facility] CNOVon 03-10-2025 CNOV Office Visit (PULMWS ) RAJENDRA LUCERO ([id number]) 1955 F Date Time Provider Department 03/10/25 1:00 PM RAJENDRA GOODMAN PULMWS During your visit today, we recorded the following information about you: Rajendra Goodman, [facility] ASSISTANT DIRECTOR.PRACTICE NURSE 03/10/2025 1:47 PM Signed Pulmonary Medicine Patients name: Rajendra Palumbo PCP: Phuc Martines DO CC: concern for ROXY HPI: Rajendra Lucero is a 69 year old female former 70-luch-owkh smoker, quitting in 2008 with PMH significant [...] that time. She was just hospitalized at [facility] 02/19 - 02/23 for SOB/leg swelling [...] failure (HCC) COPD (chronic obstructive pulmonary disease) ([facility]) 02/03/2010 Coronary artery disease No UT, CHF. No heart cath. Diverticulosis of colon [...] ER 20 mEq tablet Commonly known as: JENIFEROR-CON TRELEGY ELLIPTA 200-62.5-25 mcg inhalation powder Generic drug: pkjnaytvcfa-kgfdtricf-nqiiebk r Inhale 1 Puff as instructed once [...] 3 LungR (more content not included)... Normal [facility] Basic Metabolic Profile (BMP )on 03-02-2025 BUN Normal 4-19 [facility] Comment on above: Result Comment: Canc elled via OM: Order cancelled - Patient discharged Performed By: #### L 500.2500, L100.0100 ####[facility] [address] [place], [address] BUN/CRE Normal 10-20 [facility] Comment on above: Result Comment: Canc elled via OM: Order cancelled - Patient discharged Performed By: #### L 500.2500, L100.0100 ####[facility] [address] [place], [address] Calcium Normal 7.6-11.0 [facility] Comment on above: Result Comment: Canc elled via OM: Order cancelled - Patient discharged Performed By: #### L 500.2500, L100.0100 ####[facility] [address] [place], [address] CL Normal 98-108 [facility] Comment on above: Result Comment: Canc elled via OM: Order cancelled - Patient discharged Performed By: #### L 500.2500, L100.0100 ####[facility] [address] [place], [address] CO2 Normal 21.0-32.0 [facility] Comment on above: Result Comment: Canc elled via OM: Order cancelled - Patient discharged Performed By: #### L 500.2500, L100.0100 ####[facility] [address] [place], [address] CREAT,SERUM Normal 0.70-1.20 [facility] Comment on above: Result Comment: Canc elled via OM: Order cancelled - Patient discharged Performed By: #### L 500.2500, L100.0100 ####[facility] [address] [place], [address] eGFR Normal >60 [facility] Comment on above: Result Comment: Canc elled via OM: Order cancelled - Patient discharged Performed By: #### L 500.2500, L100.0100 ####[facility] [address] [place], [address] GAP Normal 5-15 [facility] Comment on above: Result Comment: Canc elled via OM: Order cancelled - Patient discharged Performed By: #### L 500.2500, L100.0100 ####[facility] [address] [place], [address] GLU Normal 70-99 [facility] Comment on above: Result Comment: Canc elled via OM: Order cancelled - Patient discharged Performed By: #### L 500.2500, L100.0100 ####[facility] [address] [place], [address] Potassium Normal 3.3-5.1 [facility] Comment on above: Result Comment: Canc elled via OM: Order cancelled - Patient discharged Performed By: #### L 500.2500, L100.0100 ####[facility] [address] [place], [address] Basic Metabolic Profile (BMP) Normal 133-145 [facility] Comment on above: Result Comment: Canc elled via OM: Order cancelled - Patient discharged Performed By: #### L 500.2500, L100.0100 ####[facility] [address] [place], [address] CBC W/Diff, Automatedon 05-0 6-2024 Absolute Neut Normal 2.0-7.7 [facility] Comment on above: Result Comment: Canc elled via OM: Order cancelled - Patient discharged Performed By: #### L 500.2500, L100.0100 ####[facility] [address] [place], [address] HCT Normal 37-47 [facility] Comment on above: Result Comment: Canc elled via OM: Order cancelled - Patient discharged Performed By: #### L 500.2500, L100.0100 ####[facility] [address] [place], [address] HGB Normal 12.0-15.0 [facility] Comment on above: Result Comment: Canc elled via OM: Order cancelled - Patient discharged Performed By: #### L 500.2500, L100.0100 ####[facility] [address] [place], [address] MCH Normal 27.0-32.0 [facility] Comment on above: Result Comment: Canc elled via OM: Order cancelled - Patient discharged Performed By: #### L 500.2500, L100.0100 ####[facility] [address] [place], [address] MCHC Normal 32-36 [facility] Comment on above: Result Comment: Canc elled via OM: Order cancelled - Patient discharged Performed By: #### L 500.2500, L100.0100 ####[facility] [address] [place], [address] MCV Normal 81-99 [facility] Comment on above: Result Comment: Canc elled via OM: Order cancelled - Patient discharged Performed By: #### L 500.2500, L100.0100 ####[facility] [address] [place], [address] NEUT% Normal 47-70 [facility] Comment on above: Result Comment: Canc elled via OM: Order cancelled - Patient discharged Performed By: #### L 500.2500, L100.0100 ####[facility] [address] [place], [address] PLT Normal 150-450 [facility] Comment on above: Result Comment: Canc elled via OM: Order cancelled - Patient discharged Performed By: #### L 500.2500, L100.0100 ####[facility] [address] [place], [address] RBC Normal 4.2-5.4 [facility] Comment on above: Result Comment: Canc elled via OM: Order cancelled - Patient discharged Performed By: #### L 500.2500, L100.0100 ####[facility] [address] [place], [address] RDW CV Normal 11.6-14.6 [facility] Comment on above: Result Comment: Canc elled via OM: Order cancelled - Patient discharged Performed By: #### L 500.2500, L100.0100 ####[facility] [address] [place], [address] RDW SD Normal 35.1-43.9 [facility] Comment on above: Result Comment: Canc elled via OM: Order cancelled - Patient discharged Performed By: #### L 500.2500, L100.0100 ####[facility] [address] [place], [address] WBC Normal 4.4-11.0 [facility] Comment on above: Result Comment: Canc elled via OM: Order cancelled - Patient discharged Performed By: #### L 500.2500, L100.0100 ####[facility] [address] [place], [address] Basic Metabolic Profile (BMP )on 03-01-2025 BUN Normal 4-19 [facility] Comment on above: Result Comment: Canc elled via OM: Order cancelled - Patient discharged Performed By: #### L 100.0100, L500.2500 ####[facility] [address] [place], [address] BUN/CRE Normal 10-20 [facility] Comment on above: Result Comment: Canc elled via OM: Order cancelled - Patient discharged Performed By: #### L 100.0100, L500.2500 ####[facility] [address] [place], [address] Calcium Normal 7.6-11.0 [facility] Comment on above: Result Comment: Canc elled via OM: Order cancelled - Patient discharged Performed By: #### L 100.0100, L500.2500 ####[facility] [address] [place], [address] CL Normal 98-108 [facility] Comment on above: Result Comment: Canc elled via OM: Order cancelled - Patient discharged Performed By: #### L 100.0100, L500.2500 ####[facility] [address] [place], [address] CO2 Normal 21.0-32.0 [facility] Comment on above: Result Comment: Canc elled via OM: Order cancelled - Patient discharged Performed By: #### L 100.0100, L500.2500 ####[facility] [address] [place], [address] CREAT,SERUM Normal 0.70-1.20 [facility] Comment on above: Result Comment: Canc elled via OM: Order cancelled - Patient discharged Performed By: #### L 100.0100, L500.2500 ####[facility] [address] [place], [address] eGFR Normal >60 [facility] Comment on above: Result Comment: Canc elled via OM: Order cancelled - Patient discharged Performed By: #### L 100.0100, L500.2500 ####[facility] [address] [place], [address] GAP Normal 5-15 [facility] Comment on above: Result Comment: Canc elled via OM: Order cancelled - Patient discharged Performed By: #### L 100.0100, L500.2500 ####[facility] [address] [place], [address] GLU Normal 70-99 [facility] Comment on above: Result Comment: Canc elled via OM: Order cancelled - Patient discharged Performed By: #### L 100.0100, L500.2500 ####[facility] [address] [place], [address] Potassium Normal 3.3-5.1 [facility] Comment on above: Result Comment: Canc elled via OM: Order cancelled - Patient discharged Performed By: #### L 100.0100, L500.2500 ####[facility] [address] [place], [address] Basic Metabolic Profile (BMP) Normal 133-145 [facility] Comment on above: Result Comment: Canc elled via OM: Order cancelled - Patient discharged Performed By: #### L 100.0100, L500.2500 ####[facility] [address] [place], [address] CBC W/Diff, Automatedon 05-0 5-2024 Absolute Neut Normal 2.0-7.7 [facility] Comment on above: Result Comment: Canc elled via OM: Order cancelled - Patient discharged Performed By: #### L 100.0100, L500.2500 ####[facility] [address] [place], [address] HCT Normal 37-47 [facility] Comment on above: Result Comment: Canc elled via OM: Order cancelled - Patient discharged Performed By: #### L 100.0100, L500.2500 ####[facility] [address] [place], [address] HGB Normal 12.0-15.0 [facility] Comment on above: Result Comment: Canc elled via OM: Order cancelled - Patient discharged Performed By: #### L 100.0100, L500.2500 ####[facility] [address] [place], [address] MCH Normal 27.0-32.0 [facility] Comment on above: Result Comment: Canc elled via OM: Order cancelled - Patient discharged Performed By: #### L 100.0100, L500.2500 ####[facility] [address] [place], [address] MCHC Normal 32-36 [facility] Comment on above: Result Comment: Canc elled via OM: Order cancelled - Patient discharged Performed By: #### L 100.0100, L500.2500 ####[facility] [address] [place], [address] MCV Normal 81-99 [facility] Comment on above: Result Comment: Canc elled via OM: Order cancelled - Patient discharged Performed By: #### L 100.0100, L500.2500 ####[facility] [address] [place], [address] NEUT% Normal 47-70 [facility] Comment on above: Result Comment: Canc elled via OM: Order cancelled - Patient discharged Performed By: #### L 100.0100, L500.2500 ####[facility] [address] [place], [address] PLT Normal 150-450 [facility] Comment on above: Result Comment: Canc elled via OM: Order cancelled - Patient discharged Performed By: #### L 100.0100, L500.2500 ####[facility] [address] [place], [address] RBC Normal 4.2-5.4 [facility] Comment on above: Result Comment: Canc elled via OM: Order cancelled - Patient discharged Performed By: #### L 100.0100, L500.2500 ####[facility] [address] [place], [address] RDW CV Normal 11.6-14.6 [facility] Comment on above: Result Comment: Canc elled via OM: Order cancelled - Patient discharged Performed By: #### L 100.0100, L500.2500 ####[facility] [address] [place], [address] RDW SD Normal 35.1-43.9 [facility] Comment on above: Result Comment: Canc elled via OM: Order cancelled - Patient discharged Performed By: #### L 100.0100, L500.2500 ####[facility] [address] [place], [address] WBC Normal 4.4-11.0 [facility] Comment on above: Result Comment: Canc elled via OM: Order cancelled - Patient discharged Performed By: #### L 100.0100, L500.2500 ####[facility] [address] [place], [address] CNOVon 03-01-2025 CNOV Office Visit (ZULEIKAWS ) RAJENDRA LUCERO ([id number]) 1955 F Date Time Provider Department 03/01/25 12:20 PM JANETTE DAMON During your visit today, we recorded the following information about you: Pulse Respiration Blood pressure Weight 76/minute 18/minute 116/70 118.9 kg Janette Damon APRN.CNP 03/01/2025 2:15 PM Signed 02/26/2025 Patient presents with: Hospital F/U: [facility] COPD SUBJECTIVE: This is a 69 year old that is here today for Above Complaints. HOSPITAL/ER FOLLOW UP: Reason for visit: SOB, and leg swelling Which facility: [facility] Date of visit: 02/19/2025-02/23/2025 Diagnosis: COPD, [...] as yet. Was wanting to stay within [facility] system. Denies dyspnea, orthopnea wheezing, chest pain, palpitations or leg swelling. Follows with [facility] museum registrar. Last appointment on 12/25/2024. Uses 3/4L/NC at rest and 6 L/NC with exertion. She feels her breathing as at her baseline. ER records reviewed PAST MEDICAL HISTORY Diagnosis Date Chronic hypoxemic respiratory failure (HCC) COPD (chronic obstructive pulmonary disease) (HCC) 02/03/2010 Coronary artery disease No UT, CHF. No heart cath. Diverticulosis of colon [...] hours as needed for wheezing/shortness of breath. ochkapiqtna-zoejzkxdl-jhdmzcf r (TRELEGY ELLIPTA) 200-62.5-25 mcg inhalation powder [...] 11/09/2025 M (more content not included)... Normal [facility] Basic Metabolic Profile (BMP )on 02-28-2025 BUN Normal 4-19 [facility] Comment on above: Result Comment: Canc elled via OM: Order cancelled - Patient discharged Performed By: #### L 100.0100, L500.2500 ####[facility] [address] [place], [address] BUN/CRE Normal 10-20 [facility] Comment on above: Result Comment: Canc elled via OM: Order cancelled - Patient discharged Performed By: #### L 100.0100, L500.2500 ####[facility] [address] [place], [address] Calcium Normal 7.6-11.0 [facility] Comment on above: Result Comment: Canc elled via OM: Order cancelled - Patient discharged Performed By: #### L 100.0100, L500.2500 ####[facility] [address] [place], [address] CL Normal 98-108 [facility] Comment on above: Result Comment: Canc elled via OM: Order cancelled - Patient discharged Performed By: #### L 100.0100, L500.2500 ####[facility] [address] [place], [address] CO2 Normal 21.0-32.0 [facility] Comment on above: Result Comment: Canc elled via OM: Order cancelled - Patient discharged Performed By: #### L 100.0100, L500.2500 ####[facility] [address] [place], [address] CREAT,SERUM Normal 0.70-1.20 [facility] Comment on above: Result Comment: Canc elled via OM: Order cancelled - Patient discharged Performed By: #### L 100.0100, L500.2500 ####[facility] [address] [place], [address] eGFR Normal >60 [facility] Comment on above: Result Comment: Canc elled via OM: Order cancelled - Patient discharged Performed By: #### L 100.0100, L500.2500 ####[facility] [address] [place], [address] GAP Normal 5-15 [facility] Comment on above: Result Comment: Canc elled via OM: Order cancelled - Patient discharged Performed By: #### L 100.0100, L500.2500 ####[facility] [address] [place], [address] GLU Normal 70-99 [facility] Comment on above: Result Comment: Canc elled via OM: Order cancelled - Patient discharged Performed By: #### L 100.0100, L500.2500 ####[facility] [address] [place], [address] Potassium Normal 3.3-5.1 [facility] Comment on above: Result Comment: Canc elled via OM: Order cancelled - Patient discharged Performed By: #### L 100.0100, L500.2500 ####[facility] [address] [place], [address] Basic Metabolic Profile (BMP) Normal 133-145 [facility] Comment on above: Result Comment: Canc elled via OM: Order cancelled - Patient discharged Performed By: #### L 100.0100, L500.2500 ####[facility] [address] [place], [address] CBC W/Diff, Automatedon 05-0 Absolute Neut Normal 2.0-7.7 [facility] Comment on above: Result Comment: Canc elled via OM: Order cancelled - Patient discharged Performed By: #### L 100.0100, L500.2500 ####[facility] [address] [place], [address] HCT Normal 37-47 [facility] Comment on above: Result Comment: Canc elled via OM: Order cancelled - Patient discharged Performed By: #### L 100.0100, L500.2500 ####[facility] [address] [place], [address] HGB Normal 12.0-15.0 [facility] Comment on above: Result Comment: Canc elled via OM: Order cancelled - Patient discharged Performed By: #### L 100.0100, L500.2500 ####[facility] [address] [place], [address] MCH Normal 27.0-32.0 [facility] Comment on above: Result Comment: Canc elled via OM: Order cancelled - Patient discharged Performed By: #### L 100.0100, L500.2500 ####[facility] [address] [place], [address] MCHC Normal 32-36 [facility] Comment on above: Result Comment: Canc elled via OM: Order cancelled - Patient discharged Performed By: #### L 100.0100, L500.2500 ####[facility] [address] [place], [address] MCV Normal 81-99 [facility] Comment on above: Result Comment: Canc elled via OM: Order cancelled - Patient discharged Performed By: #### L 100.0100, L500.2500 ####[facility] [address] [place], [address] NEUT% Normal 47-70 [facility] Comment on above: Result Comment: Canc elled via OM: Order cancelled - Patient discharged Performed By: #### L 100.0100, L500.2500 ####[facility] [address] [place], [address] PLT Normal 150-450 [facility] Comment on above: Result Comment: Canc elled via OM: Order cancelled - Patient discharged Performed By: #### L 100.0100, L500.2500 ####[facility] [address] [place], [address] RBC Normal 4.2-5.4 [facility] Comment on above: Result Comment: Canc elled via OM: Order cancelled - Patient discharged Performed By: #### L 100.0100, L500.2500 ####[facility] [address] [place], [address] RDW CV Normal 11.6-14.6 [facility] Comment on above: Result Comment: Canc elled via OM: Order cancelled - Patient discharged Performed By: #### L 100.0100, L500.2500 ####[facility] [address] [place], [address] RDW SD Normal 35.1-43.9 [facility] Comment on above: Result Comment: Canc elled via OM: Order cancelled - Patient discharged Performed By: #### L 100.0100, L500.2500 ####[facility] [address] [place], [address] WBC Normal 4.4-11.0 [facility] Comment on above: Result Comment: Canc elled via OM: Order cancelled - Patient discharged Performed By: #### L 100.0100, L500.2500 ####[facility] [address] [place], [address] Basic Metabolic Profile (BMP )on 02-27-2025 BUN Normal 4-19 [facility] Comment on above: Result Comment: Canc elled via OM: Order cancelled - Patient discharged Performed By: #### L 500.2500, L100.0100 ####[facility] [address] [place], [address] BUN/CRE Normal 10-20 [facility] Comment on above: Result Comment: Canc elled via OM: Order cancelled - Patient discharged Performed By: #### L 500.2500, L100.0100 ####[facility] [address], [address] Calcium Normal 7.6-11.0 [facility] Comment on above: Result Comment: Canc elled via OM: Order cancelled - Patient discharged Performed By: #### L 500.2500, L100.0100 ####[facility] [address] [place], [address] CL Normal 98-108 [facility] Comment on above: Result Comment: Canc elled via OM: Order cancelled - Patient discharged Performed By: #### L 500.2500, L100.0100 ####[facility] [address] [place], [address] CO2 Normal 21.0-32.0 [facility] Comment on above: Result Comment: Canc elled via OM: Order cancelled - Patient discharged Performed By: #### L 500.2500, L100.0100 ####[facility] [address] [place], [address] CREAT,SERUM Normal 0.70-1.20 [facility] Comment on above: Result Comment: Canc elled via OM: Order cancelled - Patient discharged Performed By: #### L 500.2500, L100.0100 ####[facility] [address], [address] eGFR Normal >60 [facility] Comment on above: Result Comment: Canc elled via OM: Order cancelled - Patient discharged Performed By: #### L 500.2500, L100.0100 ####[facility] [address] [place], [address] GAP Normal 5-15 [facility] Comment on above: Result Comment: Canc elled via OM: Order cancelled - Patient discharged Performed By: #### L 500.2500, L100.0100 ####[facility] [address] [place], [address] GLU Normal 70-99 [facility] Comment on above: Result Comment: Canc elled via OM: Order cancelled - Patient discharged Performed By: #### L 500.2500, L100.0100 ####[facility] [address] [place], [address] Potassium Normal 3.3-5.1 [facility] Comment on above: Result Comment: Canc elled via OM: Order cancelled - Patient discharged Performed By: #### L 500.2500, L100.0100 ####[facility] [address] [place], [address] Basic Metabolic Profile (BMP) Normal 133-145 [facility] Comment on above: Result Comment: Canc elled via OM: Order cancelled - Patient discharged Performed By: #### L 500.2500, L100.0100 ####[facility] [address] [place], [address] CBC W/Diff, Automatedon 05-0 Absolute Neut Normal 2.0-7.7 [facility] Comment on above: Result Comment: Canc elled via OM: Order cancelled - Patient discharged Performed By: #### L 500.2500, L100.0100 ####[facility] [address] [place], [address] HCT Normal 37-47 [facility] Comment on above: Result Comment: Canc elled via OM: Order cancelled - Patient discharged Performed By: #### L 500.2500, L100.0100 ####[facility] [address] [place], [address] HGB Normal 12.0-15.0 [facility] Comment on above: Result Comment: Canc elled via OM: Order cancelled - Patient discharged Performed By: #### L 500.2500, L100.0100 ####[facility] [address] [place], [address] MCH Normal 27.0-32.0 [facility] Comment on above: Result Comment: Canc elled via OM: Order cancelled - Patient discharged Performed By: #### L 500.2500, L100.0100 ####[facility] [address] [place], [address] MCHC Normal 32-36 [facility] Comment on above: Result Comment: Canc elled via OM: Order cancelled - Patient discharged Performed By: #### L 500.2500, L100.0100 ####[facility] [address] [place], [address] MCV Normal 81-99 [facility] Comment on above: Result Comment: Canc elled via OM: Order cancelled - Patient discharged Performed By: #### L 500.2500, L100.0100 ####[facility] [address] [place], [address] NEUT% Normal 47-70 [facility] Comment on above: Result Comment: Canc elled via OM: Order cancelled - Patient discharged Performed By: #### L 500.2500, L100.0100 ####[facility] [address] [place], [address] PLT Normal 150-450 [facility] Comment on above: Result Comment: Canc elled via OM: Order cancelled - Patient discharged Performed By: #### L 500.2500, L100.0100 ####[facility] [address] [place], [address] RBC Normal 4.2-5.4 [facility] Comment on above: Result Comment: Canc elled via OM: Order cancelled - Patient discharged Performed By: #### L 500.2500, L100.0100 ####[facility] [address] [place], [address] RDW CV Normal 11.6-14.6 [facility] Comment on above: Result Comment: Canc elled via OM: Order cancelled - Patient discharged Performed By: #### L 500.2500, L100.0100 ####[facility] [address] [place], [address] RDW SD Normal 35.1-43.9 [facility] Comment on above: Result Comment: Canc elled via OM: Order cancelled - Patient discharged Performed By: #### L 500.2500, L100.0100 ####[facility] [address] [place], [address] WBC Normal 4.4-11.0 [facility] Comment on above: Result Comment: Canc elled via OM: Order cancelled - Patient discharged Performed By: #### L 500.2500, L100.0100 ####[facility] [address] [place], [address] Basic Metabolic Profile (BMP )on 02-26-2025 BUN Normal 4-19 [facility] Comment on above: Result Comment: Canc elled via OM: Order cancelled - Patient discharged Performed By: #### L 500.2500, L100.0100 ####[facility] [address] [place], [address] BUN/CRE Normal 10-20 [facility] Comment on above: Result Comment: Canc elled via OM: Order cancelled - Patient discharged Performed By: #### L 500.2500, L100.0100 ####[facility] [address] [place], [address] Calcium Normal 7.6-11.0 [facility] Comment on above: Result Comment: Canc elled via OM: Order cancelled - Patient discharged Performed By: #### L 500.2500, L100.0100 ####[facility] [address] [place], [address] CL Normal 98-108 [facility] Comment on above: Result Comment: Canc elled via OM: Order cancelled - Patient discharged Performed By: #### L 500.2500, L100.0100 ####[facility] [address] [place], [address] CO2 Normal 21.0-32.0 [facility] Comment on above: Result Comment: Canc elled via OM: Order cancelled - Patient discharged Performed By: #### L 500.2500, L100.0100 ####[facility] [address] [place], [address] CREAT,SERUM Normal 0.70-1.20 [facility] Comment on above: Result Comment: Canc elled via OM: Order cancelled - Patient discharged Performed By: #### L 500.2500, L100.0100 ####[facility] [address] [place], [address] eGFR Normal >60 [facility] Comment on above: Result Comment: Canc elled via OM: Order cancelled - Patient discharged Performed By: #### L 500.2500, L100.0100 ####[facility] [address] [place], [address] GAP Normal 5-15 [facility] Comment on above: Result Comment: Canc elled via OM: Order cancelled - Patient discharged Performed By: #### L 500.2500, L100.0100 ####[facility] [address] [place], [address] GLU Normal 70-99 [facility] Comment on above: Result Comment: Canc elled via OM: Order cancelled - Patient discharged Performed By: #### L 500.2500, L100.0100 ####[facility] [address] [place], [address] Potassium Normal 3.3-5.1 [facility] Comment on above: Result Comment: Canc elled via OM: Order cancelled - Patient discharged Performed By: #### L 500.2500, L100.0100 ####[facility] [address] [place], [address] Basic Metabolic Profile (BMP) Normal 133-145 [facility] Comment on above: Result Comment: Canc elled via OM: Order cancelled - Patient discharged Performed By: #### L 500.2500, L100.0100 ####[facility] [address] [place], [address] CBC W/Diff, Automatedon 05-0 -2024 Absolute Neut Normal 2.0-7.7 [facility] Comment on above: Result Comment: Canc elled via OM: Order cancelled - Patient discharged Performed By: #### L 500.2500, L100.0100 ####[facility] [address] [place], [address] HCT Normal 37-47 [facility] Comment on above: Result Comment: Canc elled via OM: Order cancelled - Patient discharged Performed By: #### L 500.2500, L100.0100 ####[facility] [address] [place], [address] HGB Normal 12.0-15.0 [facility] Comment on above: Result Comment: Canc elled via OM: Order cancelled - Patient discharged Performed By: #### L 500.2500, L100.0100 ####[facility] [address] [place], [address] MCH Normal 27.0-32.0 [facility] Comment on above: Result Comment: Canc elled via OM: Order cancelled - Patient discharged Performed By: #### L 500.2500, L100.0100 ####[facility] [address] [place], [address] MCHC Normal 32-36 [facility] Comment on above: Result Comment: Canc elled via OM: Order cancelled - Patient discharged Performed By: #### L 500.2500, L100.0100 ####[facility] [address] [place], [address] MCV Normal 81-99 [facility] Comment on above: Result Comment: Canc elled via OM: Order cancelled - Patient discharged Performed By: #### L 500.2500, L100.0100 ####[facility] [address] [place], [address] NEUT% Normal 47-70 [facility] Comment on above: Result Comment: Canc elled via OM: Order cancelled - Patient discharged Performed By: #### L 500.2500, L100.0100 ####[facility] [address] [place], [address] PLT Normal 150-450 [facility] Comment on above: Result Comment: Canc elled via OM: Order cancelled - Patient discharged Performed By: #### L 500.2500, L100.0100 ####[facility] [address] [place], [address] RBC Normal 4.2-5.4 [facility] Comment on above: Result Comment: Canc elled via OM: Order cancelled - Patient discharged Performed By: #### L 500.2500, L100.0100 ####[facility] [address] [place], [address] RDW CV Normal 11.6-14.6 [facility] Comment on above: Result Comment: Canc elled via OM: Order cancelled - Patient discharged Performed By: #### L 500.2500, L100.0100 ####[facility] [address] [place], [address] RDW SD Normal 35.1-43.9 [facility] Comment on above: Result Comment: Canc elled via OM: Order cancelled - Patient discharged Performed By: #### L 500.2500, L100.0100 ####[facility] [address] [place], [address] WBC Normal 4.4-11.0 [facility] Comment on above: Result Comment: Canc elled via OM: Order cancelled - Patient discharged Performed By: #### L 500.2500, L100.0100 ####[facility] [address] [place], [address] Basic Metabolic Profile (BMP )on 02-25-2025 BUN Normal 4-19 [facility] Comment on above: Result Comment: Canc elled via OM: Order cancelled - Patient discharged Performed By: #### L 100.0100, L500.2500 ####[facility] [address] [place], [address] BUN/CRE Normal 10-20 [facility] Comment on above: Result Comment: Canc elled via OM: Order cancelled - Patient discharged Performed By: #### L 100.0100, L500.2500 ####[facility] [address] [place], [address] Calcium Normal 7.6-11.0 [facility] Comment on above: Result Comment: Canc elled via OM: Order cancelled - Patient discharged Performed By: #### L 100.0100, L500.2500 ####[facility] [address] [place], [address] CL Normal 98-108 [facility] Comment on above: Result Comment: Canc elled via OM: Order cancelled - Patient discharged Performed By: #### L 100.0100, L500.2500 ####[facility] [address] [place], [address] CO2 Normal 21.0-32.0 [facility] Comment on above: Result Comment: Canc elled via OM: Order cancelled - Patient discharged Performed By: #### L 100.0100, L500.2500 ####[facility] [address] [place], [address] CREAT,SERUM Normal 0.70-1.20 [facility] Comment on above: Result Comment: Canc elled via OM: Order cancelled - Patient discharged Performed By: #### L 100.0100, L500.2500 ####[facility] [address] [place], [address] eGFR Normal >60 [facility] Comment on above: Result Comment: Canc elled via OM: Order cancelled - Patient discharged Performed By: #### L 100.0100, L500.2500 ####[facility] [address] [place], [address] GAP Normal 5-15 [facility] Comment on above: Result Comment: Canc elled via OM: Order cancelled - Patient discharged Performed By: #### L 100.0100, L500.2500 ####[facility] [address] [place], [address] GLU Normal 70-99 [facility] Comment on above: Result Comment: Canc elled via OM: Order cancelled - Patient discharged Performed By: #### L 100.0100, L500.2500 ####[facility] [address] [place], [address] Potassium Normal 3.3-5.1 [facility] Comment on above: Result Comment: Canc elled via OM: Order cancelled - Patient discharged Performed By: #### L 100.0100, L500.2500 ####[facility] [address] [place], [address] Basic Metabolic Profile (BMP) Normal 133-145 [facility] Comment on above: Result Comment: Canc elled via OM: Order cancelled - Patient discharged Performed By: #### L 100.0100, L500.2500 ####[facility] [address] [place], [address] CBC W/Diff, Automatedon 05-0 Absolute Neut Normal 2.0-7.7 [facility] Comment on above: Result Comment: Canc elled via OM: Order cancelled - Patient discharged Performed By: #### L 100.0100, L500.2500 ####[facility] [address] [place], [address] HCT Normal 37-47 [facility] Comment on above: Result Comment: Canc elled via OM: Order cancelled - Patient discharged Performed By: #### L 100.0100, L500.2500 ####[facility] [address] [place], [address] HGB Normal 12.0-15.0 [facility] Comment on above: Result Comment: Canc elled via OM: Order cancelled - Patient discharged Performed By: #### L 100.0100, L500.2500 ####[facility] [address] [place], [address] MCH Normal 27.0-32.0 [facility] Comment on above: Result Comment: Canc elled via OM: Order cancelled - Patient discharged Performed By: #### L 100.0100, L500.2500 ####[facility] [address] [place], [address] MCHC Normal 32-36 [facility] Comment on above: Result Comment: Canc elled via OM: Order cancelled - Patient discharged Performed By: #### L 100.0100, L500.2500 ####[facility] [address] [place], [address] MCV Normal 81-99 [facility] Comment on above: Result Comment: Canc elled via OM: Order cancelled - Patient discharged Performed By: #### L 100.0100, L500.2500 ####[facility] [address] [place], [address] NEUT% Normal 47-70 [facility] Comment on above: Result Comment: Canc elled via OM: Order cancelled - Patient discharged Performed By: #### L 100.0100, L500.2500 ####[facility] [address] [place], [address] PLT Normal 150-450 [facility] Comment on above: Result Comment: Canc elled via OM: Order cancelled - Patient discharged Performed By: #### L 100.0100, L500.2500 ####[facility] [address] [place], [address] RBC Normal 4.2-5.4 [facility] Comment on above: Result Comment: Canc elled via OM: Order cancelled - Patient discharged Performed By: #### L 100.0100, L500.2500 ####[facility] [address] [place], [address] RDW CV Normal 11.6-14.6 [facility] Comment on above: Result Comment: Canc elled via OM: Order cancelled - Patient discharged Performed By: #### L 100.0100, L500.2500 ####[facility] [address] [place], [address] RDW SD Normal 35.1-43.9 [facility] Comment on above: Result Comment: Canc elled via OM: Order cancelled - Patient discharged Performed By: #### L 100.0100, L500.2500 ####[facility] [address] [place], [address] WBC Normal 4.4-11.0 [facility] Comment on above: Result Comment: Canc elled via OM: Order cancelled - Patient discharged Performed By: #### L 100.0100, L500.2500 ####[facility] [address] [place], [address] Basic Metabolic Profile (BMP )on 02-24-2025 BUN Normal 4-19 [facility] Comment on above: Result Comment: Canc elled via OM: Order cancelled - Patient discharged Performed By: #### L 100.0100, L500.2500 ####[facility] [address] [place], [address] BUN/CRE Normal 10-20 [facility] Comment on above: Result Comment: Canc elled via OM: Order cancelled - Patient discharged Performed By: #### L 100.0100, L500.2500 ####[facility] [address] [place], [address] Calcium Normal 7.6-11.0 [facility] Comment on above: Result Comment: Canc elled via OM: Order cancelled - Patient discharged Performed By: #### L 100.0100, L500.2500 ####[facility] [address] [place], [address] CL Normal 98-108 [facility] Comment on above: Result Comment: Canc elled via OM: Order cancelled - Patient discharged Performed By: #### L 100.0100, L500.2500 ####[facility] [address] [place], [address] CO2 Normal 21.0-32.0 [facility] Comment on above: Result Comment: Canc elled via OM: Order cancelled - Patient discharged Performed By: #### L 100.0100, L500.2500 ####[facility] [address] [place], [address] CREAT,SERUM Normal 0.70-1.20 [facility] Comment on above: Result Comment: Canc elled via OM: Order cancelled - Patient discharged Performed By: #### L 100.0100, L500.2500 ####[facility] [address] [place], [address] eGFR Normal >60 [facility] Comment on above: Result Comment: Canc elled via OM: Order cancelled - Patient discharged Performed By: #### L 100.0100, L500.2500 ####[facility] [address] [place], [address] GAP Normal 5-15 [facility] Comment on above: Result Comment: Canc elled via OM: Order cancelled - Patient discharged Performed By: #### L 100.0100, L500.2500 ####[facility] [address] [place], [address] GLU Normal 70-99 [facility] Comment on above: Result Comment: Canc elled via OM: Order cancelled - Patient discharged Performed By: #### L 100.0100, L500.2500 ####[facility] [address] [place], [address] Potassium Normal 3.3-5.1 [facility] Comment on above: Result Comment: Canc elled via OM: Order cancelled - Patient discharged Performed By: #### L 100.0100, L500.2500 ####[facility] [address] [place], [address] Basic Metabolic Profile (BMP) Normal 133-145 [facility] Comment on above: Result Comment: Canc elled via OM: Order cancelled - Patient discharged Performed By: #### L 100.0100, L500.2500 ####[facility] [address] [place], [address] CBC W/Diff, Automatedon 04-3 -2024 Absolute Neut Normal 2.0-7.7 [facility] Comment on above: Result Comment: Canc elled via OM: Order cancelled - Patient discharged Performed By: #### L 100.0100, L500.2500 ####[facility] [address] [place], [address] HCT Normal 37-47 [facility] Comment on above: Result Comment: Canc elled via OM: Order cancelled - Patient discharged Performed By: #### L 100.0100, L500.2500 ####[facility] [address] [place], [address] HGB Normal 12.0-15.0 [facility] Comment on above: Result Comment: Canc elled via OM: Order cancelled - Patient discharged Performed By: #### L 100.0100, L500.2500 ####[facility] [address] [place], [address] MCH Normal 27.0-32.0 [facility] Comment on above: Result Comment: Canc elled via OM: Order cancelled - Patient discharged Performed By: #### L 100.0100, L500.2500 ####[facility] [address] [place], [address] MCHC Normal 32-36 [facility] Comment on above: Result Comment: Canc elled via OM: Order cancelled - Patient discharged Performed By: #### L 100.0100, L500.2500 ####[facility] [address] [place], [address] MCV Normal 81-99 [facility] Comment on above: Result Comment: Canc elled via OM: Order cancelled - Patient discharged Performed By: #### L 100.0100, L500.2500 ####[facility] [address] [place], [address] NEUT% Normal 47-70 [facility] Comment on above: Result Comment: Canc elled via OM: Order cancelled - Patient discharged Performed By: #### L 100.0100, L500.2500 ####[facility] [address] [place], [address] PLT Normal 150-450 [facility] Comment on above: Result Comment: Canc elled via OM: Order cancelled - Patient discharged Performed By: #### L 100.0100, L500.2500 ####[facility] [address] [place], [address] RBC Normal 4.2-5.4 [facility] Comment on above: Result Comment: Canc elled via OM: Order cancelled - Patient discharged Performed By: #### L 100.0100, L500.2500 ####[facility] [address] [place], [address] RDW CV Normal 11.6-14.6 [facility] Comment on above: Result Comment: Canc elled via OM: Order cancelled - Patient discharged Performed By: #### L 100.0100, L500.2500 ####[facility] [address] [place], [address] RDW SD Normal 35.1-43.9 [facility] Comment on above: Result Comment: Canc elled via OM: Order cancelled - Patient discharged Performed By: #### L 100.0100, L500.2500 ####[facility] [address] [place], [address] WBC Normal 4.4-11.0 [facility] Comment on above: Result Comment: Canc elled via OM: Order cancelled - Patient discharged Performed By: #### L 100.0100, L500.2500 ####[facility] [address] [place], [address] Culture, Blood (WB)on 2024 CUB Blood cultures x2, f rom two different sites No growth in 5 days. Normal [facility] Comment on above: Performed By: #### L 100.0100, L300.4310, L503.6005, L300.3900, L500.4050, M200.1000 ####[facility] [address] [place], [address] Absolute lymphocyte countOrd ered By: Yee Kumaryajaira on 02-23-2025 Lymphocytes Auto (Unsp spec) [#/Vol] 0.85 10*3/uL 0.83-4.51 [facility] Absolute neutrophil countOrd ered By: Yee Kumaryajaira on 02-23-2025 Neutrophils (Bld) [#/Vol] 5.9 10*3/uL 2.0-7.7 [facility] Anion gap in Serum or Plasma Ordered By: Yeecarlee Jones on 02-23-2025 Anion gap [Moles/Vol] 9 mmol/L 5-15 [facility] Automated lymphocyte count a s percentage of total leukocytesOrdered By: Yee Joséyajaira on 02-23-2025 Lymphocytes/100 WBC Auto (Unsp spec) 11.2 % Low 19-41 [facility] BUN/creatinine ratioOrdered By: Yeecarlee Jones on 02-23-2025 Urea nitrogen/Creatinine [Mass ratio] 31.6 mg/mg High 10-20 [facility] Basic Metabolic Profile (BMP )on 02-23-2025 BUN/CRE 31.6 RATIO High 10-20 [facility] Comment on above: Performed By: #### L 500.2500, L100.0100 ####[facility] [address] [place], [address] Calcium [Mass/Vol] 9.4 mg/dL Normal 7.6-11.0 [facility] Comment on above: Performed By: #### L 500.2500, L100.0100 ####[facility] [address] [place], [address] Chloride [Moles/Vol] 96 mmol/L Low 98-108 [facility] Comment on above: Performed By: #### L 500.2500, L100.0100 ####[facility] [address] [place], [address] CO2 [Moles/Vol] 40.2 mmol/L High 21.0-32.0 [facility] Comment on above: Performed By: #### L 500.2500, L100.0100 ####[facility] [address] [place], [address] Creatinine [Mass/Vol] 0.62 mg/dL Low 0.70-1.20 [facility] Comment on above: Performed By: #### L 500.2500, L100.0100 ####[facility] [address] [place], [address] ECRCL 86.12 ml/min Normal 50-250 [facility] Comment on above: Performed By: #### L 500.2500, L100.0100 ####[facility] [address] [place], [address] GAP 9 Normal 5-15 [facility] Comment on above: Performed By: #### L 500.2500, L100.0100 ####[facility] [address] [place], [address] GFR/1.73 sq M.predicted among non-blacks MDRD (S/P/Bld) [Vol rate/Area] 97 mL/min/{1.73_m2} Normal >60 [facility] Comment on above: Result Comment: mL/m in/1.73m2 CKD-EPI Creatinine Equation (2020) Performed By: #### L 500.2500, L100.0100 ####[facility] [address] [place], [address] Glucose [Mass/Vol] 114 mg/dL High 70-99 [facility] Comment on above: Performed By: #### L 500.2500, L100.0100 ####[facility] [address] [place], [address] Potassium [Moles/Vol] 3.3 mmol/L Normal 3.3-5.1 [facility] Comment on above: Performed By: #### L 500.2500, L100.0100 ####[facility] [address] [place], [address] Sodium [Moles/Vol] 145 mmol/L Normal 133-145 [facility] Comment on above: Performed By: #### L 500.2500, L100.0100 ####[facility] [address] [place], [address] Urea nitrogen [Mass/Vol] 20 mg/dL High 4-19 [facility] Comment on above: Performed By: #### L 500.2500, L100.0100 ####[facility] [address] [place], [address] Basophil percentageOrdered B y: Yee Jones on 02-23-2025 Basophils/100 WBC (Bld) 0.7 % 0-1 [facility] CBC W/Diff, Automatedon 01-27 Absolute Lymph 0.85 X10 3/uL Normal 0.83-4.51 [facility] Comment on above: Performed By: #### L 500.2500, L100.0100 ####[facility] [address] [place], [address] Absolute Neut 5.9 X10 3/uL Normal 2.0-7.7 [facility] Comment on above: Performed By: #### L 500.2500, L100.0100 ####[facility] [address] [place], [address] Basophils/100 WBC (Bld) 0.7 % Normal 0-1 [facility] Comment on above: Performed By: #### L 500.2500, L100.0100 ####[facility] [address] [place], [address] Eosinophils/100 WBC (Bld) 1.7 % Normal 0-5 [facility] Comment on above: Performed By: #### L 500.2500, L100.0100 ####[facility] [address] [place], [address] Erythrocyte distribution width (RBC) [Ratio] 14.3 % Normal 11.6-14.6 [facility] Comment on above: Performed By: #### L 500.2500, L100.0100 ####[facility] [address] [place], [address] Hematocrit (Bld) [Volume fraction] 45.7 % Normal 37-47 [facility] Comment on above: Performed By: #### L 500.2500, L100.0100 ####[facility] [address] [place], [address] Hemoglobin (Bld) [Mass/Vol] 14.1 g/dL Normal 12.0-15.0 [facility] Comment on above: Performed By: #### L 500.2500, L100.0100 ####[facility] [address] [place], [address] IG% 0.400 Normal 0.0-0.9 [facility] Comment on above: Result Comment: IG% - Immature Granulocytes (promyelocytes, myelocytes andmetamyelocytes) > 1% indicates that a LEFT SHIFT is Present. Performed By: #### L 500.2500, L100.0100 ####[facility] [address] [place], [address] Lymphocytes/100 WBC (Bld) 11.2 % Low 19-41 [facility] Comment on above: Performed By: #### L 500.2500, L100.0100 ####[facility] [address] [place], [address] MCH (RBC) [Entitic mass] 30.9 pg Normal 27.0-32.0 [facility] Comment on above: Performed By: #### L 500.2500, L100.0100 ####[facility] [address] [place], [address] MCHC (RBC) [Mass/Vol] 30.9 g/dL Low 32-36 [facility] Comment on above: Performed By: #### L 500.2500, L100.0100 ####[facility] [address] [place], [address] MCV (RBC) [Entitic vol] 100.2 fL High 81-99 [facility] Comment on above: Performed By: #### L 500.2500, L100.0100 ####[facility] [address] [place], [address] Monocytes/100 WBC (Bld) 7.9 % Normal 0-10 [facility] Comment on above: Performed By: #### L 500.2500, L100.0100 ####[facility] [address] [place], [address] Neutrophils/100 WBC (Bld) 78.1 % High 47-70 [facility] Comment on above: Performed By: #### L 500.2500, L100.0100 ####[facility] [address] [place], [address] Nucleated RBC (Bld) [#/Vol] 0 10*3/uL Normal 0-5 [facility] Comment on above: Performed By: #### L 500.2500, L100.0100 ####[facility] [address] [place], [address] Platelet mean volume (Bld) [Entitic vol] 10.7 fL Normal 6.2-12.0 [facility] Comment on above: Performed By: #### L 500.2500, L100.0100 ####[facility] [address] [place], [address] Platelets (Bld) [#/Vol] 217 10*3/uL Normal 150-450 [facility] Comment on above: Performed By: #### L 500.2500, L100.0100 ####[facility] [address] [place], [address] RBC (Bld) [#/Vol] 4.56 10*6/uL Normal 4.2-5.4 [facility] Comment on above: Performed By: #### L 500.2500, L100.0100 ####[facility] [address] [place], [address] RDW SD 53.5 fl High 35.1-43.9 [facility] Comment on above: Performed By: #### L 500.2500, L100.0100 ####[facility] [address] [place], [address] WBC (Bld) [#/Vol] 7.6 10*3/uL Normal 4.4-11.0 [facility] Comment on above: Performed By: #### L 500.2500, L100.0100 ####[facility] [address] [place], [address] Carbon dioxide, total [Moles /volume] in Central venous bloodOrdered By: Yee Jones on 02-23-2025 CO2 [Moles/Vol] 40.2 mmol/L High 21.0-32.0 [facility] Chloride assayOrdered By: Na lawanda Jones on 02-23-2025 Chloride [Moles/Vol] 96 mmol/L Low 98-108 [facility] Discharge Instructionon 042 Discharge Instruction Normal [facility] Eosinophil percentageOrdered By: Yee Jones on 02-23-2025 Eosinophils/100 WBC (Bld) 1.7 % 0-5 [facility] Erythrocyte distribution wid th (RBC) [Ratio]Ordered By: Yee Jones on 02-23-2025 Erythrocyte distribution width (RBC) [Entitic vol] 53.5 fL High 35.1-43.9 [facility] Erythrocyte distribution wid th ratioOrdered By: Yee Jones on 02-23-2025 Erythrocyte distribution width (RBC) [Ratio] 14.3 % 11.6-14.6 [facility] Erythrocyte distribution wid th standard deviationOrdered By: Yee Jones on 02-23-2025 Erythrocyte distribution width (RBC) [Ratio] 53.5 fl High 35.1-43.9 [facility] Estimation of creatinine dilan aranceOrdered By: Yee Jones on 02-23-2025 Estimated Creatinine Clearance Calc 86.12 ml/min 50-250 [facility] GFR/1.73 sq M.predicted rosalba g non-blacks MDRD (S/P/Bld) [Vol rate/Area]Ordered By: Yee Jones on 02-23-2025 Estimated GFR (MDRD) Non-Af Amer 97 >60 [facility] Comment on above: mL/min/1.73m2 CKD-EP I Creatinine Equation (2020) Glomerular filtration rate ( GFR) estimation/1.73 sq m using serum, plasma, or whole bOrdered By: Yee Jones on 02-23-2025 GFR/1.73 sq M.predicted among non-blacks MDRD (S/P/Bld) [Vol rate/Area] 97 mL/min/{1.73_m2} >60 [facility] Comment on above: mL/min/1.73m2 CKD-EP I Creatinine Equation (2020) Hematocrit Auto (Bld) [Volum e fraction]Ordered By: Yee Jones 02-23-2025 Hematocrit (Bld) [Volume fraction] 45.7 % 37-47 [facility] Hemoglobin measurementOrdere d By: Yee Jones on 02-23-2025 Hemoglobin (Bld) [Mass/Vol] 14.1 g/dL 12.0-15.0 [facility] Immature granulocytes/100 WB C Auto (Bld)Ordered By: Yee Jones on 02-23-2025 Immature granulocytes/100 WBC (Bld) 0.400 % 0.0-0.9 [facility] Comment on above: IG% - Immature Granu locytes (promyelocytes, myelocytes and metamyelocytes) > 1% indicates that a LEFT SHIFT is Present. Lymphocytes Auto (Unsp spec) [#/Vol]Ordered By: Yee Jones on 02-23-2025 Lymphocytes (Bld) [#/Vol] 0.85 10*3/uL 0.83-4.51 [facility] Lymphocytes/100 WBC Auto (Un sp spec)Ordered By: Yee Jones on 02-23-2025 Lymphocytes/100 WBC (Bld) 11.2 % Low 19-41 [facility] MCV (mean corpuscular volume ) determinationOrdered By: Yee Jones on 02-23-2025 MCV (RBC) [Entitic vol] 100.2 fL High 81-99 [facility] Mean corpuscular hemoglobin (MCH) determinationOrdered By: Yee Jones on 02-23-2025 MCH (RBC) [Entitic mass] 30.9 pg 27.0-32.0 [facility] Mean corpuscular hemoglobin concentration (MCHC) determinationOrdered By: Yee Jones on 02-23-2025 MCHC (RBC) [Mass/Vol] 30.9 g/dL Low 32-36 [facility] Mean platelet volume determi nationOrdered By: Yee Jones on 02-23-2025 Platelet mean volume (Bld) [Entitic vol] 10.7 fL 6.2-12.0 [facility] Monocyte percentageOrdered B y: Yee Jones on 02-23-2025 Monocytes/100 WBC (Bld) 7.9 % 0-10 [facility] Neutrophil percentageOrdered By: Yee Jones on 02-23-2025 Neutrophils/100 WBC (Bld) 78.1 % High 47-70 [facility] Nucleated red blood cell per centageOrdered By: Yee Jones on 02-23-2025 Nucleated RBC/100 WBC (Bld) [Ratio] 0 % 0-5 [facility] Platelet countOrdered By: Na lawanda Jones on 02-23-2025 Platelets (Bld) [#/Vol] 217 10*3/uL 150-450 [facility] Potassium (Unsp spec) [Mass/ Vol]Ordered By: Yee Jones on 02-23-2025 Potassium [Moles/Vol] 3.3 mmol/L 3.3-5.1 [facility] Potassium measurement (mass/ volume)Ordered By: Yee Jones on 02-23-2025 Potassium (Unsp spec) [Mass/Vol] 3.3 mmol/L 3.3-5.1 [facility] RBC Auto (Bld) [#/Vol]Ordere d By: Yee Jones on 02-23-2025 RBC (Bld) [#/Vol] 4.56 10*6/uL 4.2-5.4 [facility] Serum creatinine measurement (mass/volume)Ordered By: Yee Jones on 02-23-2025 Creatinine [Mass/Vol] 0.62 mg/dL Low 0.70-1.20 [facility] Serum glucose measurement (m ass/volume)Ordered By: Yee Jones on 02-23-2025 Glucose [Mass/Vol] 114 mg/dL High 70-99 [facility] Serum or plasma calcium tad urement (mass/volume)Ordered By: Yeecarlee Jnoes on 02-23-2025 Calcium [Mass/Vol] 9.4 mg/dL 7.6-11.0 [facility] Serum or plasma urea nitroge n measurement (mass/volume)Ordered By: Yee Jones on 02-23-2025 Urea nitrogen [Mass/Vol] 20 mg/dL High 4-19 [facility] Sodium levelOrdered By: Yee Jones on 02-23-2025 Sodium [Moles/Vol] 145 mmol/L 133-145 [facility] White blood cell (WBC) count Ordered By: Yeecarlee Jones on 02-23-2025 WBC (Bld) [#/Vol] 7.6 10*3/uL 4.4-11.0 [facility] Basic Metabolic Profile (BMP )on 02-22-2025 BUN/CRE 36.2 RATIO High 10-20 [facility] Comment on above: Performed By: #### L 100.0500, L500.2500, L501.2300, L501.5200 ####[facility] [address] [place], [address] Calcium [Mass/Vol] 9.4 mg/dL Normal 7.6-11.0 [facility] Comment on above: Performed By: #### L 100.0500, L500.2500, L501.2300, L501.5200 ####[facility] [address] [place], [address] Chloride [Moles/Vol] 96 mmol/L Low 98-108 [facility] Comment on above: Performed By: #### L 100.0500, L500.2500, L501.2300, L501.5200 ####[facility] [address] [place], [address] CO2 [Moles/Vol] 36.4 mmol/L High 21.0-32.0 [facility] Comment on above: Performed By: #### L 100.0500, L500.2500, L501.2300, L501.5200 ####[facility] [address] [place], [address] Creatinine [Mass/Vol] 0.60 mg/dL Low 0.70-1.20 [facility] Comment on above: Performed By: #### L 100.0500, L500.2500, L501.2300, L501.5200 ####[facility] [address] [place], [address] ECRCL 86.29 ml/min Normal 50-250 [facility] Comment on above: Performed By: #### L 100.0500, L500.2500, L501.2300, L501.5200 ####[facility] [address] [place], [address] GAP 11 Normal 5-15 [facility] Comment on above: Performed By: #### L 100.0500, L500.2500, L501.2300, L501.5200 ####[facility] [address] [place], [address] GFR/1.73 sq M.predicted among non-blacks MDRD (S/P/Bld) [Vol rate/Area] 98 mL/min/{1.73_m2} Normal >60 [facility] Comment on above: Result Comment: mL/m in/1.73m2 CKD-EPI Creatinine Equation (2020) Performed By: #### L 100.0500, L500.2500, L501.2300, L501.5200 ####[facility] [address] [place], [address] Glucose [Mass/Vol] 115 mg/dL High 70-99 [facility] Comment on above: Performed By: #### L 100.0500, L500.2500, L501.2300, L501.5200 ####[facility] [address] [place], [address] Potassium [Moles/Vol] 3.5 mmol/L Normal 3.3-5.1 [facility] Comment on above: Performed By: #### L 100.0500, L500.2500, L501.2300, L501.5200 ####[facility] [address] [place], [address] Sodium [Moles/Vol] 144 mmol/L Normal 133-145 [facility] Comment on above: Performed By: #### L 100.0500, L500.2500, L501.2300, L501.5200 ####[facility] [address] [place], [address] Urea nitrogen [Mass/Vol] 22 mg/dL High 4-19 [facility] Comment on above: Performed By: #### L 100.0500, L500.2500, L501.2300, L501.5200 ####[facility] [address] [place], [address] CBC-Complete Blood Cnt No Di ffon 02-22-2025 Erythrocyte distribution width (RBC) [Ratio] 14.5 % Normal 11.6-14.6 [facility] Comment on above: Performed By: #### L 100.0500, L500.2500, L501.2300, L501.5200 ####[facility] [address] [place], [address] Hematocrit (Bld) [Volume fraction] 42.6 % Normal 37-47 [facility] Comment on above: Performed By: #### L 100.0500, L500.2500, L501.2300, L501.5200 ####[facility] [address] [place], [address] Hemoglobin (Bld) [Mass/Vol] 13.2 g/dL Normal 12.0-15.0 [facility] Comment on above: Performed By: #### L 100.0500, L500.2500, L501.2300, L501.5200 ####[facility] [address] [place], [address] MCH (RBC) [Entitic mass] 31.4 pg Normal 27.0-32.0 [facility] Comment on above: Performed By: #### L 100.0500, L500.2500, L501.2300, L501.5200 ####[facility] [address] [place], [address] MCHC (RBC) [Mass/Vol] 31.0 g/dL Low 32-36 [facility] Comment on above: Performed By: #### L 100.0500, L500.2500, L501.2300, L501.5200 ####[facility] [address] [place], [address] MCV (RBC) [Entitic vol] 101.2 fL High 81-99 [facility] Comment on above: Performed By: #### L 100.0500, L500.2500, L501.2300, L501.5200 ####[facility] [address] [place], [address] Platelet mean volume (Bld) [Entitic vol] 11.3 fL Normal 6.2-12.0 [facility] Comment on above: Performed By: #### L 100.0500, L500.2500, L501.2300, L501.5200 ####[facility] [address] [place], [address] Platelets (Bld) [#/Vol] 189 10*3/uL Normal 150-450 [facility] Comment on above: Performed By: #### L 100.0500, L500.2500, L501.2300, L501.5200 ####[facility] [address] [place], [address] RBC (Bld) [#/Vol] 4.21 10*6/uL Normal 4.2-5.4 [facility] Comment on above: Performed By: #### L 100.0500, L500.2500, L501.2300, L501.5200 ####[facility] [address] [place], [address] RDW SD 54.4 fl High 35.1-43.9 [facility] Comment on above: Performed By: #### L 100.0500, L500.2500, L501.2300, L501.5200 ####[facility] [address] [place], [address] WBC (Bld) [#/Vol] 8.1 10*3/uL Normal 4.4-11.0 [facility] Comment on above: Performed By: #### L 100.0500, L500.2500, L501.2300, L501.5200 ####[facility] [address] [place], [address] Magnesiumon 02-22-2025 Magnesium [Mass/Vol] 2.2 mg/dL Normal 1.5-2.2 [facility] Comment on above: Performed By: #### L 100.0500, L500.2500, L501.2300, L501.5200 ####[facility] [address] [place], [address] Magnesium (Unsp spec) [Mass/ Vol]Ordered By: Claudia Valerio on 02-22-2025 Magnesium [Mass/Vol] 2.2 mg/dL 1.5-2.2 [facility] Magnesium measurement (mass/ volume)Ordered By: Claudia Valerio on 02-22-2025 Magnesium (Unsp spec) [Mass/Vol] 2.2 mg/dL 1.5-2.2 [facility] Phosphoruson 02-22-2025 Phosphate [Mass/Vol] 4.9 mg/dL High 2.7-4.5 [facility] Comment on above: Performed By: #### L 100.0500, L500.2500, L501.2300, L501.5200 ####[facility] [address] [place], [address] Serum phosphorus measurement Ordered By: Claudia Valerio on 02-22-2025 Phosphorus Level 4.9 mg/dL High 2.7-4.5 [facility] Basic Metabolic Profile (BMP )on 02-21-2025 BUN/CRE 40.7 RATIO High 10-20 [facility] Comment on above: Performed By: #### L 500.2500, L100.0500, L501.2300, L501.5200 ####[facility] [address] [place], [address] Calcium [Mass/Vol] 8.9 mg/dL Normal 7.6-11.0 [facility] Comment on above: Performed By: #### L 500.2500, L100.0500, L501.2300, L501.5200 ####[facility] [address] [place], [address] Chloride [Moles/Vol] 96 mmol/L Low 98-108 [facility] Comment on above: Performed By: #### L 500.2500, L100.0500, L501.2300, L501.5200 ####[facility] [address] [place], [address] CO2 [Moles/Vol] 39.0 mmol/L High 21.0-32.0 [facility] Comment on above: Performed By: #### L 500.2500, L100.0500, L501.2300, L501.5200 ####[facility] [address] [place], [address] Creatinine [Mass/Vol] 0.54 mg/dL Low 0.70-1.20 [facility] Comment on above: Performed By: #### L 500.2500, L100.0500, L501.2300, L501.5200 ####[facility] [address] [place], [address] ECRCL 85.99 ml/min Normal 50-250 [facility] Comment on above: Performed By: #### L 500.2500, L100.0500, L501.2300, L501.5200 ####[facility] [address] [place], [address] GAP 9 Normal 5-15 [facility] Comment on above: Performed By: #### L 500.2500, L100.0500, L501.2300, L501.5200 ####[facility] [address] [place], [address] GFR/1.73 sq M.predicted among non-blacks MDRD (S/P/Bld) [Vol rate/Area] 101 mL/min/{1.73_m2} Normal >60 [facility] Comment on above: Result Comment: mL/m in/1.73m2 CKD-EPI Creatinine Equation (2020) Performed By: #### L 500.2500, L100.0500, L501.2300, L501.5200 ####[facility] [address] [place], [address] Glucose [Mass/Vol] 119 mg/dL High 70-99 [facility] Comment on above: Performed By: #### L 500.2500, L100.0500, L501.2300, L501.5200 ####[facility] [address] [place], [address] Potassium [Moles/Vol] 3.3 mmol/L Normal 3.3-5.1 [facility] Comment on above: Performed By: #### L 500.2500, L100.0500, L501.2300, L501.5200 ####[facility] [address] [place], [address] Sodium [Moles/Vol] 144 mmol/L Normal 133-145 [facility] Comment on above: Performed By: #### L 500.2500, L100.0500, L501.2300, L501.5200 ####[facility] [address] [place], [address] Urea nitrogen [Mass/Vol] 22 mg/dL High 4-19 [facility] Comment on above: Performed By: #### L 500.2500, L100.0500, L501.2300, L501.5200 ####[facility] [address] [place], [address] CBC-Complete Blood [facility]nt [facility] Erythrocyte distribution width (RBC) [Ratio] 14.6 % Normal 11.6-14.6 [facility] Comment on above: Performed By: #### L 500.2500, L100.0500, L501.2300, L501.5200 ####[facility] [address] [place], [address] Hematocrit (Bld) [Volume fraction] 40.3 % Normal 37-47 [facility] Comment on above: Performed By: #### L 500.2500, L100.0500, L501.2300, L501.5200 ####[facility] [address] [place], [address] Hemoglobin (Bld) [Mass/Vol] 12.6 g/dL Normal 12.0-15.0 [facility] Comment on above: Performed By: #### L 500.2500, L100.0500, L501.2300, L501.5200 ####[facility] [address] [place], [address] MCH (RBC) [Entitic mass] 31.3 pg Normal 27.0-32.0 [facility] Comment on above: Performed By: #### L 500.2500, L100.0500, L501.2300, L501.5200 ####[facility] [address] [place], [address] MCHC (RBC) [Mass/Vol] 31.3 g/dL Low 32-36 [facility] Comment on above: Performed By: #### L 500.2500, L100.0500, L501.2300, L501.5200 ####[facility] [address] [place], [address] MCV (RBC) [Entitic vol] 100.2 fL High 81-99 [facility] Comment on above: Performed By: #### L 500.2500, L100.0500, L501.2300, L501.5200 ####[facility] [address] [place], [address] Platelet mean volume (Bld) [Entitic vol] 10.6 fL Normal 6.2-12.0 [facility] Comment on above: Performed By: #### L 500.2500, L100.0500, L501.2300, L501.5200 ####[facility] [address] [place], [address] Platelets (Bld) [#/Vol] 226 10*3/uL Normal 150-450 [facility] Comment on above: Performed By: #### L 500.2500, L100.0500, L501.2300, L501.5200 ####[facility] [address] [place], [address] RBC (Bld) [#/Vol] 4.02 10*6/uL Low 4.2-5.4 [facility] Comment on above: Performed By: #### L 500.2500, L100.0500, L501.2300, L501.5200 ####[facility] [address] [place], [address] RDW SD 54.2 fl High 35.1-43.9 [facility] Comment on above: Performed By: #### L 500.2500, L100.0500, L501.2300, L501.5200 ####[facility] [address] [place], [address] WBC (Bld) [#/Vol] 8.9 10*3/uL Normal 4.4-11.0 [facility] Comment on above: Performed By: #### L 500.2500, L100.0500, L501.2300, L501.5200 ####[facility] [address] [place], [address] Magnesiumon 02-21-2025 Magnesium [Mass/Vol] 1.9 mg/dL Normal 1.5-2.2 [facility] Comment on above: Performed By: #### L 500.2500, L100.0500, L501.2300, L501.5200 ####[facility] [address] [place], [address] Phosphoruson 02-21-2025 Phosphate [Mass/Vol] 3.3 mg/dL Normal 2.7-4.5 [facility] Comment on above: Performed By: #### L 500.2500, L100.0500, L501.2300, L501.5200 ####[facility] [address] [place], [address] Urine Cultureon 02-21-2025 URC Below infection leve l. Mixed Gram Pos Gram Neg Org [facility] Count 1000-10,000 MIXC Mixed contaminants. Submit a new specimen if indicated. Normal [facility] Comment on above: Performed By: #### M 100.678, M100.2200, L400.0001 ####[facility] [address] [place], [address] Bilirubin, totalOrdered By: Kym Norton on 02-20-2025 Bilirubin [Mass/Vol] 0.43 mg/dL 0.00-1.30 [facility] CBC-Complete Blood Cnt No Di ffon 02-20-2025 Erythrocyte distribution width (RBC) [Ratio] 14.4 % Normal 11.6-14.6 [facility] Comment on above: Performed By: #### L 100.0500, L500.4050, L500.4100, L501.9520 ####[facility] [address] [place], [address] Hematocrit (Bld) [Volume fraction] 39.2 % Normal 37-47 [facility] Comment on above: Performed By: #### L 100.0500, L500.4050, L500.4100, L501.9520 ####[facility] [address] [place], [address] Hemoglobin (Bld) [Mass/Vol] 12.4 g/dL Normal 12.0-15.0 [facility] Comment on above: Performed By: #### L 100.0500, L500.4050, L500.4100, L501.9520 ####[facility] [address] [place], [address] MCH (RBC) [Entitic mass] 31.2 pg Normal 27.0-32.0 [facility] Comment on above: Performed By: #### L 100.0500, L500.4050, L500.4100, L501.9520 ####[facility] [address] [place], [address] MCHC (RBC) [Mass/Vol] 31.6 g/dL Low 32-36 [facility] Comment on above: Performed By: #### L 100.0500, L500.4050, L500.4100, L501.9520 ####[facility] [address] [place], [address] MCV (RBC) [Entitic vol] 98.7 fL Normal 81-99 [facility] Comment on above: Performed By: #### L 100.0500, L500.4050, L500.4100, L501.9520 ####[facility] [address] [place], [address] Platelet mean volume (Bld) [Entitic vol] 11.2 fL Normal 6.2-12.0 [facility] Comment on above: Performed By: #### L 100.0500, L500.4050, L500.4100, L501.9520 ####[facility] [address] [place], [address] Platelets (Bld) [#/Vol] 223 10*3/uL Normal 150-450 [facility] Comment on above: Performed By: #### L 100.0500, L500.4050, L500.4100, L501.9520 ####[facility] [address] [place], [address] RBC (Bld) [#/Vol] 3.97 10*6/uL Low 4.2-5.4 [facility] Comment on above: Performed By: #### L 100.0500, L500.4050, L500.4100, L501.9520 ####[facility] [address] [place], [address] RDW SD 52.0 fl High 35.1-43.9 [facility] Comment on above: Performed By: #### L 100.0500, L500.4050, L500.4100, L501.9520 ####[facility] [address] [place], [address] WBC (Bld) [#/Vol] 8.2 10*3/uL Normal 4.4-11.0 [facility] Comment on above: Performed By: #### L 100.0500, L500.4050, L500.4100, L501.9520 ####[facility] [address] [place], [address] CTA Chest W/WO Contraston CTA Chest W/WO Contrast Normal [facility] Calculated very low density lipoprotein (VLDL) cholesterol measurementOrdered By: Kym Norton on 02-20-2025 Calculated very low density lipoprotein (VLDL) cholesterol measurement 12 mg/dL [facility] VLDL Cholesterol 12 mg/dL 40 [facility] Comprehensive Metabolic Prof ilon 02-20-2025 Albumin [Mass/Vol] 3.8 g/dL Normal 3.4-4.8 [facility] Comment on above: Performed By: #### L 100.0500, L500.4050, L500.4100, L501.9520 ####[facility] [address] [place], [address] Albumin/Globulin [Mass ratio] 1.2 {ratio} Normal 0.9-2.4 [facility] Comment on above: Performed By: #### L 100.0500, L500.4050, L500.4100, L501.9520 ####[facility] [address] [place], [address] ALK PHOS 72 U/L Normal 35-104 [facility] Comment on above: Performed By: #### L 100.0500, L500.4050, L500.4100, L501.9520 ####[facility] [address] [place], [address] ALT [Catalytic activity/Vol] 42 U/L High <=34 [facility] Comment on above: Performed By: #### L 100.0500, L500.4050, L500.4100, L501.9520 ####[facility] [address] [place], [address] AST [Catalytic activity/Vol] 27 U/L Normal <=31 [facility] Comment on above: Performed By: #### L 100.0500, L500.4050, L500.4100, L501.9520 ####[facility] [address] [place], [address] Bilirubin [Mass/Vol] 0.43 mg/dL Normal 0.00-1.30 [facility] Comment on above: Performed By: #### L 100.0500, L500.4050, L500.4100, L501.9520 ####[facility] [address] [place], [address] BUN/CRE 30.9 RATIO High 10-20 [facility] Comment on above: Performed By: #### L 100.0500, L500.4050, L500.4100, L501.9520 ####[facility] [address] [place], [address] Calcium [Mass/Vol] 8.9 mg/dL Normal 7.6-11.0 [facility] Comment on above: Performed By: #### L 100.0500, L500.4050, L500.4100, L501.9520 ####[facility] [address] [place], [address] Chloride [Moles/Vol] 95 mmol/L Low 98-108 [facility] Comment on above: Performed By: #### L 100.0500, L500.4050, L500.4100, L501.9520 ####[facility] [address] [place], [address] CO2 [Moles/Vol] 34.3 mmol/L High 21.0-32.0 [facility] Comment on above: Performed By: #### L 100.0500, L500.4050, L500.4100, L501.9520 ####[facility] [address] [place], [address] Creatinine [Mass/Vol] 0.56 mg/dL Low 0.70-1.20 [facility] Comment on above: Performed By: #### L 100.0500, L500.4050, L500.4100, L501.9520 ####[facility] [address] [place], [address] ECRCL 86.85 ml/min Normal 50-250 [facility] Comment on above: Performed By: #### L 100.0500, L500.4050, L500.4100, L501.9520 ####[facility] [address] [place], [address] GAP 13 Normal 5-15 [facility] Comment on above: Performed By: #### L 100.0500, L500.4050, L500.4100, L501.9520 ####[facility] [address] [place], [address] GFR/1.73 sq M.predicted among non-blacks MDRD (S/P/Bld) [Vol rate/Area] 100 mL/min/{1.73_m2} Normal >60 [facility] Comment on above: Result Comment: mL/m in/1.73m2 CKD-EPI Creatinine Equation (2020) Performed By: #### L 100.0500, L500.4050, L500.4100, L501.9520 ####[facility] [address] [place], [address] Globulin (S) [Mass/Vol] 3.2 g/dL Normal 2.2-4.2 [facility] Comment on above: Performed By: #### L 100.0500, L500.4050, L500.4100, L501.9520 ####[facility] [address] [place], [address] Glucose [Mass/Vol] 141 mg/dL High 70-99 [facility] Comment on above: Performed By: #### L 100.0500, L500.4050, L500.4100, L501.9520 ####[facility] [address] [place], [address] Potassium [Moles/Vol] 3.8 mmol/L Normal 3.3-5.1 [facility] Comment on above: Result Comment: Hemo lysis present, Results??could be affected.?? Performed By: #### L 100.0500, L500.4050, L500.4100, L501.9520 ####[facility] [address] [place], [address] Sodium [Moles/Vol] 142 mmol/L Normal 133-145 [facility] Comment on above: Performed By: #### L 100.0500, L500.4050, L500.4100, L501.9520 ####[facility] [address] [place], [address] T PROT 7.0 g/dL Normal 5.9-8.4 [facility] Comment on above: Performed By: #### L 100.0500, L500.4050, L500.4100, L501.9520 ####[facility] [address] [place], [address] Urea nitrogen [Mass/Vol] 17 mg/dL Normal 4-19 [facility] Comment on above: Performed By: #### L 100.0500, L500.4050, L500.4100, L501.9520 ####[facility] [address] 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 [facility] Work Phone: LDL calc ser/plasOrdered By: Kym Norton on 02-20-2025 Cholesterol in LDL [Mass/Vol] 101 mg/dL [facility] Comment on above: Fhcovngmbe=116-556 m g/dL & Higher Iliq=212 mg/dL or greater LDL Cholesterol, Calculated 101 mg/dL [facility] Comment on above: Povqfuxnqe=875-183 m g/dL & Higher Mhzi=600 mg/dL or greater Laboratory - Chemistry and C hemistry - challengeOrdered By: Kym Norton on 02-20-2025 AST [Catalytic activity/Vol] 27 U/L <32 [facility] Lipid Profileon 02-20-2025 CHOL:HDL 2.63 Normal [facility] Comment on above: Performed By: #### L 100.0500, L500.4050, L500.4100, L501.9520 ####[facility] [address] [place], [place], [address] Cholesterol [Mass/Vol] 183 mg/dL Normal <=200 [facility] Comment on above: Result Comment: Chol esterol level, Desirable <200 mg/dLBorderline high cholesterol 200-239 mg/dLHigh cholesterol >=240 mg/dLRecommendations of the NCEP Adult Treatment Panel for thefollowing risk-cutoff thresholds for the [place] [facility] [place]. Performed By: #### L 100.0500, L500.4050, L500.4100, L501.9520 ####[facility] [address] [place], [place], [address] Cholesterol in HDL [Mass/Vol] 70 mg/dL Normal [facility] Comment on above: Result Comment: Monika onal Cholesterol Education Program (NCEP) guidelines:<40 mg/dL: Low HDL-cholesterol (major risk factor for CHD)>= 60 mg/dL: High HDL-cholesterol (negative risk factor forCHD)HDL-cholesterol is affected by a number of factors, e.g.smoking, exercise, hormones, sex and age. Performed By: #### L 100.0500, L500.4050, L500.4100, L501.9520 ####[facility] [address] [place], [address] Cholesterol in LDL [Mass/Vol] 101 mg/dL Normal [facility] Comment on above: Result Comment: Bord zjhjok=854-747 mg/dL Higher Hqio=938 mg/dL or greater Performed By: #### L 100.0500, L500.4050, L500.4100, L501.9520 ####[facility] [address] [place], [address] Cholesterol in VLDL [Mass/Vol] 12 mg/dL Normal 5-40 [facility] Comment on above: Performed By: #### L 100.0500, L500.4050, L500.4100, L501.9520 ####[facility] [address] [place], [address] Triglyceride [Mass/Vol] 61 mg/dL Normal [facility] Comment on above: Result Comment: The drugs N-Acetylcysteine and Metamizole may falselydepress this assay.Normal range: <150 mg/dLBorderline High: 150-199 mg/dLHigh: 200-499 mg/dLVery High: >500 mg/dL Performed By: #### L 100.0500, L500.4050, L500.4100, L501.9520 ####[facility] [address] [place], [address] Magnesiumon 02-20-2025 Magnesium [Mass/Vol] 1.9 mg/dL Normal 1.5-2.2 [facility] Comment on above: Order Comment: Comme nts: Add onto previous labs if possible Performed By: #### L 638.5201 ####[facility] [address] [place], [address] RESPIRATORY PANEL MOLECULARo n 02-20-2025 RP PANEL Normal [facility] Comment on above: Performed By: #### M 100.638 ####[facility] [address] [place], [address] Respiratory pathogens DNA an d RNA panel RENETTA+probe (Resp)Ordered By: Claudia Valerio on 02-20-2025 Respiratory Panel (PCR) [facility] Respiratory pathogens detect ion panel by molecular detection methodOrdered By: Claudia Valerio on 02-20-2025 Respiratory pathogens DNA and RNA panel RENETTA+probe (Resp) [facility] Screening total cholesterol/ high density lipoprotein (HDL) cholesterol ratioOrdered By: Kym Norton on 02-20-2025 Cholesterol.total/Cho lesterol in HDL [Mass ratio] 2.63 {ratio} [facility] Serum globulin measurementOr dered By: Kym Norton on 02-20-2025 Globulin (S) [Mass/Vol] 3.2 g/dL 2.2-4.2 [facility] Serum or plasma alanine lindsey otransferase (ALT) measurementOrdered By: Kym Norton on 02-20-2025 ALT [Catalytic activity/Vol] 42 U/L High <35 [facility] Serum or plasma albumin tad urement (mass/volume)Ordered By: Kym Norton on 02-20-2025 Albumin [Mass/Vol] 3.8 g/dL 3.4-4.8 [facility] Serum or plasma albumin/glob ulin mass ratioOrdered By: Kym Norton on 02-20-2025 Albumin/Globulin [Mass ratio] 1.2 {ratio} 0.9-2.4 [facility] Serum or plasma alkaline izta sphatase measurementOrdered By: Kym Norton on 02-20-2025 ALP [Catalytic activity/Vol] 72 U/L 35-104 [facility] Serum or plasma cholesterol in HDL measurement (mass/volume)Ordered By: Kym Norton on 02-20-2025 Cholesterol in HDL [Mass/Vol] 70 mg/dL >40 [facility] Comment on above: National Cholesterol Education Program (NCEP) guidelines:<40 mg/dL: Low HDL-cholesterol (major risk factor for CHD)>= 60 mg/dL: High HDL-cholesterol (negative risk factor for CHD)HDL-cholesterol is affected by a number of factors, e.g. smoking, exercise, hormones, sex and age. Serum or plasma cholesterol measurement (mass/volume)Ordered By: Kym Norton on 02-20-2025 Cholesterol [Mass/Vol] 183 mg/dL <201 [facility] Comment on above: Cholesterol level, D esirable <200 mg/dLBorderline high cholesterol 200-239 mg/dLHigh cholesterol >=240 mg/dLRecommendations of the NCEP Adult Treatment Panel for the following risk-cutoff thresholds for the [place] population. TSH DL <= 0.005 mIU/L QnOrde red By: Kym Norton on 02-20-2025 Thyroid Stimulating Hormone (TSH) 0.626 uIU/mL 0.300-4.20 0 [facility] TSH Qn 0.626 uIU/mL 0.300-4.20 0 [facility] Thyroid Stim Hormone (TSH)on 02-20-2025 TSH 0.626 uIU/mL Normal 0.300-4.20 0 [facility] Comment on above: Performed By: #### L 100.0500, L500.4050, L500.4100, L501.9520 ####[facility] [address] [place], [place], [id number] Total proteinOrdered By: Marychuy Norton on 02-20-2025 Protein [Mass/Vol] 7.0 g/dL 5.9-8.4 [facility] Triglycerides measurementOrd ered By: Kym Norton on 02-20-2025 Triglyceride [Mass/Vol] 61 mg/dL <199 [facility] Comment on above: The drugs N-Acetylcy steine and Metamizole may falsely depress this assay. Normal range: <150 mg/dLBorderline High: 150-199 mg/dLHigh: 200-499 mg/dLVery High: >500 mg/dL Activated partial thrombopla stin time (aPTT) in platelet poor plasma by coagulation aOrdered By: Linwood Ivy on 02-19-2025 aPTT Coag (PPP) [Time] 27.1 s 24.1-36.2 [facility] Bilirubin Test strip Ql (U)O rdered By: Linwood Ivy on 02-19-2025 Bilirubin Ql (U) Negative Negative [facility] Blood cultureOrdered By: Melissa Ivy on 02-19-2025 Bacteria identified Cx Nom (Bld) No growth in 5 days. [facility] Bacteria identified Cx Nom (Bld) No growth in 5 days. [facility] CBC W/Diff, Automatedon 01-27 Absolute Lymph 0.84 X10 3/uL Normal 0.83-4.51 [facility] Comment on above: Performed By: #### L 100.0100, L300.4310, L503.6005, L300.3900, L500.4050, M200.1000 ####[facility] [address] [place], [address] Absolute Neut 6.9 X10 3/uL Normal 2.0-7.7 [facility] Comment on above: Performed By: #### L 100.0100, L300.4310, L503.6005, L300.3900, L500.4050, M200.1000 ####[facility] [address] [place], [address] Basophils/100 WBC (Bld) 0.5 % Normal 0-1 [facility] Comment on above: Performed By: #### L 100.0100, L300.4310, L503.6005, L300.3900, L500.4050, M200.1000 ####[facility] [address] [place], [address] Eosinophils/100 WBC (Bld) 1.0 % Normal 0-5 [facility] Comment on above: Performed By: #### L 100.0100, L300.4310, L503.6005, L300.3900, L500.4050, M200.1000 ####[facility] [address] [place], [address] Erythrocyte distribution width (RBC) [Ratio] 14.6 % Normal 11.6-14.6 [facility] Comment on above: Performed By: #### L 100.0100, L300.4310, L503.6005, L300.3900, L500.4050, M200.1000 ####[facility] [address] [place], [address] Hematocrit (Bld) [Volume fraction] 41.2 % Normal 37-47 [facility] Comment on above: Performed By: #### L 100.0100, L300.4310, L503.6005, L300.3900, L500.4050, M200.1000 ####[facility] [address] [place], [address] Hemoglobin (Bld) [Mass/Vol] 13.0 g/dL Normal 12.0-15.0 [facility] Comment on above: Performed By: #### L 100.0100, L300.4310, L503.6005, L300.3900, L500.4050, M200.1000 ####[facility] [address] [place], [address] IG% 0.200 Normal 0.0-0.9 [facility] Comment on above: Result Comment: IG% - Immature Granulocytes (promyelocytes, myelocytes andmetamyelocytes) > 1% indicates that a LEFT SHIFT is Present. Performed By: #### L 100.0100, L300.4310, L503.6005, L300.3900, L500.4050, M200.1000 ####[facility] [address] [place], [address] Lymphocytes/100 WBC (Bld) 9.8 % Low 19-41 [facility] Comment on above: Performed By: #### L 100.0100, L300.4310, L503.6005, L300.3900, L500.4050, M200.1000 ####[facility] [address] [place], [address] MCH (RBC) [Entitic mass] 31.3 pg Normal 27.0-32.0 [facility] Comment on above: Performed By: #### L 100.0100, L300.4310, L503.6005, L300.3900, L500.4050, M200.1000 ####[facility] [address] [place], [address] MCHC (RBC) [Mass/Vol] 31.6 g/dL Low 32-36 [facility] Comment on above: Performed By: #### L 100.0100, L300.4310, L503.6005, L300.3900, L500.4050, M200.1000 ####[facility] [address] [place], [address] MCV (RBC) [Entitic vol] 99.0 fL Normal 81-99 [facility] Comment on above: Performed By: #### L 100.0100, L300.4310, L503.6005, L300.3900, L500.4050, M200.1000 ####[facility] [address] [place], [address] Monocytes/100 WBC (Bld) 8.5 % Normal 0-10 [facility] Comment on above: Performed By: #### L 100.0100, L300.4310, L503.6005, L300.3900, L500.4050, M200.1000 ####[facility] [address] [place], [address] Neutrophils/100 WBC (Bld) 80.0 % High 47-70 [facility] Comment on above: Performed By: #### L 100.0100, L300.4310, L503.6005, L300.3900, L500.4050, M200.1000 ####[facility] [address] [place], [address] Nucleated RBC (Bld) [#/Vol] 0 10*3/uL Normal 0-5 [facility] Comment on above: Performed By: #### L 100.0100, L300.4310, L503.6005, L300.3900, L500.4050, M200.1000 ####[facility] [address] [place], [address] Platelet mean volume (Bld) [Entitic vol] 10.4 fL Normal 6.2-12.0 [facility] Comment on above: Performed By: #### L 100.0100, L300.4310, L503.6005, L300.3900, L500.4050, M200.1000 ####[facility] [address] [place], [address] Platelets (Bld) [#/Vol] 231 10*3/uL Normal 150-450 [facility] Comment on above: Performed By: #### L 100.0100, L300.4310, L503.6005, L300.3900, L500.4050, M200.1000 ####[facility] [address] [place], [address] RBC (Bld) [#/Vol] 4.16 10*6/uL Low 4.2-5.4 [facility] Comment on above: Performed By: #### L 100.0100, L300.4310, L503.6005, L300.3900, L500.4050, M200.1000 ####[facility] [address] [place], [address] RDW SD 53.2 fl High 35.1-43.9 [facility] Comment on above: Performed By: #### L 100.0100, L300.4310, L503.6005, L300.3900, L500.4050, M200.1000 ####[facility] [address] [place], [address] WBC (Bld) [#/Vol] 8.6 10*3/uL Normal 4.4-11.0 [facility] Comment on above: Performed By: #### L 100.0100, L300.4310, L503.6005, L300.3900, L500.4050, M200.1000 ####[facility] [address] [place], [address] Chest PA and Lateralon 02-19 Chest PA and Lateral Normal [facility] Comprehensive Metabolic Prof ilon 02-19-2025 Albumin [Mass/Vol] 4.0 g/dL Normal 3.4-4.8 [facility] Comment on above: Performed By: #### L 100.0100, L300.4310, L503.6005, L300.3900, L500.4050, M200.1000 ####[facility] [address] [place], [address] Albumin/Globulin [Mass ratio] 1.2 {ratio} Normal 0.9-2.4 [facility] Comment on above: Performed By: #### L 100.0100, L300.4310, L503.6005, L300.3900, L500.4050, M200.1000 ####[facility] [address] [place], [address] ALK PHOS 80 U/L Normal 35-104 [facility] Comment on above: Performed By: #### L 100.0100, L300.4310, L503.6005, L300.3900, L500.4050, M200.1000 ####[facility] [address] [place], [address] ALT [Catalytic activity/Vol] 45 U/L High <=34 [facility] Comment on above: Performed By: #### L 100.0100, L300.4310, L503.6005, L300.3900, L500.4050, M200.1000 ####[facility] [address] [place], [address] AST [Catalytic activity/Vol] 29 U/L Normal <=31 [facility] Comment on above: Performed By: #### L 100.0100, L300.4310, L503.6005, L300.3900, L500.4050, M200.1000 ####[facility] [address] [place], [address] Bilirubin [Mass/Vol] 0.69 mg/dL Normal 0.00-1.30 [facility] Comment on above: Performed By: #### L 100.0100, L300.4310, L503.6005, L300.3900, L500.4050, M200.1000 ####[facility] [address] [place], [address] BUN/CRE 27.9 RATIO High 10-20 [facility] Comment on above: Performed By: #### L 100.0100, L300.4310, L503.6005, L300.3900, L500.4050, M200.1000 ####[facility] [address] [place], [address] Calcium [Mass/Vol] 9.4 mg/dL Normal 7.6-11.0 [facility] Comment on above: Performed By: #### L 100.0100, L300.4310, L503.6005, L300.3900, L500.4050, M200.1000 ####[facility] [address] [place], [address] Chloride [Moles/Vol] 96 mmol/L Low 98-108 [facility] Comment on above: Performed By: #### L 100.0100, L300.4310, L503.6005, L300.3900, L500.4050, M200.1000 ####[facility] [address] [place], [address] CO2 [Moles/Vol] 34.4 mmol/L High 21.0-32.0 [facility] Comment on above: Performed By: #### L 100.0100, L300.4310, L503.6005, L300.3900, L500.4050, M200.1000 ####[facility] [address] [place], [address] Creatinine [Mass/Vol] 0.55 mg/dL Low 0.70-1.20 [facility] Comment on above: Performed By: #### L 100.0100, L300.4310, L503.6005, L300.3900, L500.4050, M200.1000 ####[facility] [address] [place], [address] ECRCL 87.97 ml/min Normal 50-250 [facility] Comment on above: Performed By: #### L 100.0100, L300.4310, L503.6005, L300.3900, L500.4050, M200.1000 ####[facility] [address] [place], [address] GAP 11 Normal 5-15 [facility] Comment on above: Performed By: #### L 100.0100, L300.4310, L503.6005, L300.3900, L500.4050, M200.1000 ####[facility] [address] [place], [address] GFR/1.73 sq M.predicted among non-blacks MDRD (S/P/Bld) [Vol rate/Area] 100 mL/min/{1.73_m2} Normal >60 [facility] Comment on above: Result Comment: mL/m in/1.73m2 CKD-EPI Creatinine Equation (2020) Performed By: #### L 100.0100, L300.4310, L503.6005, L300.3900, L500.4050, M200.1000 ####[facility] [address] [place], [address] Globulin (S) [Mass/Vol] 3.3 g/dL Normal 2.2-4.2 [facility] Comment on above: Performed By: #### L 100.0100, L300.4310, L503.6005, L300.3900, L500.4050, M200.1000 ####[facility] [address] [place], [address] Glucose [Mass/Vol] 116 mg/dL High 70-99 [facility] Comment on above: Performed By: #### L 100.0100, L300.4310, L503.6005, L300.3900, L500.4050, M200.1000 ####[facility] [address] [place], [address] Potassium [Moles/Vol] 3.6 mmol/L Normal 3.3-5.1 [facility] Comment on above: Performed By: #### L 100.0100, L300.4310, L503.6005, L300.3900, L500.4050, M200.1000 ####[facility] [address] [place], [address] Sodium [Moles/Vol] 142 mmol/L Normal 133-145 [facility] Comment on above: Performed By: #### L 100.0100, L300.4310, L503.6005, L300.3900, L500.4050, M200.1000 ####[facility] [address] [place], [address] T PROT 7.2 g/dL Normal 5.9-8.4 [facility] Comment on above: Performed By: #### L 100.0100, L300.4310, L503.6005, L300.3900, L500.4050, M200.1000 ####[facility] [address] [place], [address] Urea nitrogen [Mass/Vol] 15 mg/dL Normal 4-19 [facility] Comment on above: Performed By: #### L 100.0100, L300.4310, L503.6005, L300.3900, L500.4050, M200.1000 ####[facility] [address] [place], [address] Echo Complete W/ Contraston 02-19-2025 Echo Complete W/ Contrast Normal [facility] [facility] Emergency Department Summary on 02-19-2025 Emergency Department Summary Normal [facility] Epithelial cells.squamous LM Ql (Urine sed)Ordered By: Linwood Ivy on 02-19-2025 Epithelial cells.squamous LM.HPF (Urine sed) [#/Area] 0 /[HPF] 5-10 [facility] Glucose Ql (U)Ordered By: Fernandez Ivy on 02-19-2025 Urine Glucose (UA) Normal mg/dl Normal [facility] H AND P Exam - Hospital[place] 02-19-2025 H&P Exam - Hospitalist Normal [facility] Influenza virus A and B and SARS-CoV-2 (COVID-19) and Respiratory syncytial virus RNAOrdered By: Linwood Ivy on 02-19-2025 SARS-CoV-2 (COVID-19) RNA RENETTA+probe Ql (Unsp spec) [facility] International normalized rat io (INR) calculationOrdered By: Linwood Ivy on 02-19-2025 INR Coag (Bld) [Relative time] 1.0 {INR} [facility] Ketones Test strip Ql (U)Ord ered By: Linwood Ivy on 02-19-2025 Ketones Ql (U) Negative Negative [facility] L499.0042on 02-19-2025 Trop T High Sen < 6 Normal <=14 [facility] Comment on above: Performed By: #### L 499.0042 ####[facility] [address] [place], [address] L499.0043on 02-19-2025 Trop T High Sen < 6 Normal <=14 [facility] Comment on above: Performed By: #### L 499.0043 ####[facility] [address] [place], [address] L501.4021on 02-19-2025 Trop T High Sen < 6 Normal <=14 [facility] Comment on above: Performed By: #### L 503.7505, L501.4021 ####[facility] [address] [place], [address] L503.7505on 02-19-2025 Natriuretic peptide B (Bld) [Mass/Vol] 529 pg/mL Normal <=900 [facility] Comment on above: Result Comment: Hear t Failure Unlikely: < 300 pg/mLHeart Failure Likely< 50 Years: > 450 pg/mL50-75 Years: > 900 pg/mL>75 Years: > 1800 pg/mL Performed By: #### L 503.7505, L501.4021 ####[facility] [address] [place], [address] Lactic Acidon 02-19-2025 Lactate [Moles/Vol] 1.5 mmol/L Normal 0.0-2.0 [facility] Comment on above: Order Comment: Y Performed By: #### L 100.0100, L300.4310, L503.6005, L300.3900, L500.4050, M200.1000 ####[facility] [address] [place], [address] Lactic acid measurementOrder ed By: Linwood Ivy on 02-19-2025 Lactate [Moles/Vol] 1.5 mmol/L 0.0-2.0 [facility] M100.678on 02-19-2025 M100.678 Pending SARS-CoV-2 (COVID 19) Negative INFLUENZA A Negative INFLUENZA B Negative RSV PCR Negative Normal [facility] Comment on above: Performed By: #### M 100.678, M100.2200, L400.0001 ####[facility] [address] [place], [address] Microscopic analysis of urin e for red blood cells (RBC)Ordered By: Linwood Ivy on 02-19-2025 Microscopic analysis of urine for red blood cells (RBC) 0 SEEN /hpf 0-5 [facility] Urine RBC 0 SEEN /hpf 0-5 [facility] Mucus LM Ql (Urine sed)Order ed By: Linwood Ivy on 02-19-2025 Mucus Ql (Urine sed) 0 SEEN /hpf [facility] Natriuretic peptide.B prohor gonzalo N-Terminal [Mass/Vol]Ordered By: Linwood Ivy on 02-19-2025 Natriuretic peptide B (Bld) [Mass/Vol] 529 pg/mL <900 [facility] Comment on above: Heart Failure Unlike ly: < 300 pg/mLHeart Failure Likely< 50 Years: > 450 pg/mL50-75 Years: > 900 pg/mL>75 Years: > 1800 pg/mL Natriuretic peptide.B prohor gonzalo N-Terminal [Mass/volume] in Serum or PlasmaOrdered By: Linwood Ivy on 02-19-2025 Natriuretic peptide.B prohormone N-Terminal [Mass/Vol] 529 pg/mL <900 [facility] Comment on above: Heart Failure Unlike ly: < 300 pg/mLHeart Failure Likely< 50 Years: > 450 pg/mL50-75 Years: > 900 pg/mL>75 Years: > 1800 pg/mL Nitrite Test strip Ql (U)Ord ered By: Linwood Ivy on 02-19-2025 Nitrite Ql (U) Negative Negative [facility] Partial Thromboplast Timeon 02-19-2025 aPTT Coag (Bld) [Time] 27.1 s Normal 24.1-36.2 [facility] Comment on above: Performed By: #### L 100.0100, L300.4310, L503.6005, L300.3900, L500.4050, M200.1000 ####[facility] [address] [place], [place], [address] Protein Test strip Ql (U)Ord ered By: Linwood Ivy on 02-19-2025 Protein Ql (U) Negative Negative [facility] Prothrombin Time w/INRon INR Coag (PPP) [Relative time] 1.0 {INR} Normal [facility] Comment on above: Performed By: #### L 100.0100, L300.4310, L503.6005, L300.3900, L500.4050, M200.1000 ####[facility] [address] [place], [address] PT Coag (PPP) [Time] 13.4 s Normal 11.7-14.9 [facility] Comment on above: Performed By: #### L 100.0100, L300.4310, L503.6005, L300.3900, L500.4050, M200.1000 ####[facility] [address] [place], [place], [address] Prothrombin timeOrdered By: Linwood Ivy on 02-19-2025 PT Coag (PPP) [Time] 13.4 s 11.7-14.9 [facility] Squamous epithelial cells de tection in urine sediment by light microscopyOrdered By: Linwood Ivy on 02-19-2025 Epithelial cells.squamous LM Ql (Urine sed) 0-5 SEEN /hpf 5-10 [facility] Troponin T.cardiac High sens itivity method [Mass/Vol]Ordered By: Linwood Ivy on 02-19-2025 Troponin T High Sensitivity 4 Hour < 6 ng/L <14 [facility] Troponin T High Sensitivity 2 Hour < 6 ng/L <14 [facility] Troponin T High Sensitivity < 6 ng/L <14 [facility] Troponin T.cardiac [Mass/vol ume] in Serum or Plasma by High sensitivity methodOrdered By: Linwood Ivy on 02-19-2025 Troponin T.cardiac High sensitivity method [Mass/Vol] < 6 ng/L <14 [facility] Troponin T.cardiac High sensitivity method [Mass/Vol] < 6 ng/L <14 [facility] Troponin T.cardiac High sensitivity method [Mass/Vol] < 6 ng/L <14 [facility] Urinalysis, Completeon 02-19 EPI,SQUAMOUS 0-5 SEEN Normal 5-10 [facility] Comment on above: Order Comment: CLEAN CATCH Performed By: #### M 100.678, M100.2200, L400.0001 ####[facility] [address] [place], [address] WBC 0-5 SEEN Normal 0-5 [facility] Comment on above: Order Comment: CLEAN CATCH Performed By: #### M 100.678, M100.2200, L400.0001 ####[facility] [address] [place], [address] BACTERIA 0 SEEN Normal None Seen [facility] Comment on above: Order Comment: CLEAN CATCH Performed By: #### M 100.678, M100.2200, L400.0001 ####[facility] [address] [place], [address] Mucus Ql (Urine sed) 0 SEEN Normal [facility] Comment on above: Order Comment: CLEAN CATCH Performed By: #### M 100.678, M100.2200, L400.0001 ####[facility] [address] [place], [address] RBC 0 SEEN Normal 0-5 [facility] Comment on above: Order Comment: CLEAN CATCH Performed By: #### M 100.678, M100.2200, L400.0001 ####[facility] [address] [place], [address] Urine blood detectionOrdered By: Linwood Ivy on 02-19-2025 Urine Occult Blood Negative Negative [facility] Urine clarityOrdered By: Melissa Ivy on 02-19-2025 Clarity (U) Clear Clear [facility] Urine color determinationOrd ered By: Linwood Ivy on 02-19-2025 Color (U) Straw Yellow [facility] Urine cultureOrdered By: Melissa Ivy on 02-19-2025 Bacteria identified Cx Nom (U) Mixed Gram Pos & Gram Neg Org Abnormal [facility] Urine glucose detectionOrder ed By: Linwood Ivy on 02-19-2025 Glucose Ql (U) Normal mg/dl Normal [facility] Urine leukocyte esterase det ection by dipstickOrdered By: Linwood Ivy on 02-19-2025 Leukocyte esterase Test strip Ql (U) 25 /ul High Negative [facility] Urine pHOrdered By: Linwood cole on 02-19-2025 pH (U) 6.0 [pH] 5.0 - 8.0 [facility] Urine sediment bacteria coun t by microscopy (number/high power field)Ordered By: Linwood Ivy on 02-19-2025 Bacteria LM.HPF (Urine sed) [#/Area] 0 /[HPF] None Seen [facility] Urine specific gravity measu rementOrdered By: Linwood Ivy on 02-19-2025 Specific gravity (U) [Rel density] 1.010 1.002-1.03 0 [facility] Urine urobilinogen measureme ntOrdered By: Linwood Ivy on 02-19-2025 Urobilinogen Ql (U) Normal mg/dl Normal [facility] Urobilinogen Ql (U)Ordered B y: Linwood Ivy on 02-19-2025 Urine Urobilinogen Normal mg/dl Normal [facility] White blood cell countOrdere d By: Linwood Ivy on 02-19-2025 Urine WBC 0-5 SEEN /hpf 0-5 [facility] White blood cell count 0-5 SEEN /hpf 0-5 [facility] aPTT Coag (PPP) [Time]Ordere d By: Linwood Ivy on 02-19-2025 aPTT Coag (Bld) [Time] 27.1 s 24.1-36.2 [facility] CNOVon 01-25-2025 CNOV Office Visit (PULMWS ) RAJENDRA LUCERO ([id number]) 1955 F Date Time Provider Department 01/25/25 [...] activities of daily living. Modified Medical Research Te-Moak Dyspnea Scale (MMRC) On level ground I [...] disease) (HCC) 02/03/2010 Coronary artery disease No UT, CHF. No heart cath. Diverticulosis of colon [...] to 08/29/2022. Prior PFTS: SPIROMETRY BASELINE ONLY ([id number]) - ordered on 03/16/22 No textual results for order. SPIROMETRY BASELINE ONLY ([id number]) - ordered on 03/31/20 [facility] [address] [place] [address] Test Date: (more content not included)... Normal [facility] CT LUNG FOLLOWUP WO IVCONon 01-25-2025 CT LUNG FOLLOWUP WO IVCON * * *Final Report* * * DATE OF EXAM: Jan 25 2025 11:06AM [facility] 0561 - CT LUNG FOLLOWUP WO IVCON / PROCEDURE REASON: Lung nodule, < 6mm, high cancer risk * * * * Physician Interpretation * * * * EXAMINATION: CT LUNG FOLLOWUP WO IVCON CLINICAL HISTORY: Lung nodules Technique: Spiral CT acquisition of the chest from the thoracic inlet to the upper abdomen without contrast. MQ: CTLCS_6 Followup LDCT Patient characteristics: * Ogyr-bz-Tifef: 1955; Age at exam: 69 years * Gender: Female * Lung Disease: Asymptomatic (no signs or symptoms of lung disease) * Number of Pack Years: 38 * Current smoker (=0) or Number of Years since Quit: 15 * Ordering provider and NPI: MARICRUZ CAMP [id number] * Interpreting radiologist and NPI: Nicole [id number] Exam acquisition parameters: * Exam Date: 01/25/2025 11:06 AM * Site: [facility] * * CT System Wax Pourer: [employer] * CT System Model: Sensation * Tube [...] Recommendations: Followup LDCT in 6 months Reference: [employer]. Lung CT Screening Reporting and Data System (Lung-RADS). Available at: http://www.acr.org/Quality-Sa fety/Resources/LungRADS Power Electronics Engineer: PAT Transcribe Date/Time: Jan 25 2025 11:45A Dictated by : VIDAL PULLIAM MD This examination was interpreted and the report reviewed and electronically signed by: VIDAL PULLIAM MD on Jan 25 2025 11:51AM EST [id number] Normal [facility] CT Lung parenchyma WO contra ston 01-25-2025 IMPRESSION: LungRADS category: 3 LungRADS modifier: None LungRADS 0 reason: n/a Recommendations: Followup LDCT in 6 months Reference: [employer]. Lung CT Screening Reporting and Data System (Lung-RADS). Available at: http://www.acr.org/Quality-Sa fety/Resources/LungRADS Power Electronics Engineer: PAT Transcribe Date/Time: Jan 25 2025 11:45A Dictated by : VIDAL PULLIAM MD This examination was interpreted and the report reviewed and electronically signed by: VIDAL PULLIAM MD on Jan 25 2025 11:51AM [facility] DIVISION OF RADIOLOGY * * *Final Report* * * DATE OF EXAM: Jan 25 2025 11:06AM [facility] 0561 - CT LUNG FOLLOWUP [facility] / PROCEDURE REASON: Lung nodule, < 6mm, high cancer risk * * * * Physician Interpretation * * * * EXAMINATION: CT LUNG FOLLOWUP SHAUNA STERLING CLINICAL HISTORY: Lung nodules Technique: Spiral CT acquisition of the chest from the thoracic inlet to the upper abdomen without contrast. MQ: CTLCS_6 Followup LDCT Patient characteristics: * Ztdm-hm-Qywsz: 1955; Age at exam: 69 years * Gender: Female * Lung Disease: Asymptomatic (no signs or symptoms of lung disease) * Number of Pack Years: 38 * Current smoker (=0) or Number of Years since Quit: 15 * Ordering provider and NPI: MARICRUZ CAMP [id number] * Interpreting radiologist and NPI: Nicole [id number] Exam acquisition parameters: * Exam Date: 01/25/2025 11:06 AM * Site: [facility] * * CT System Wax Pourer: Siemens * CT System Model: Sensation * [...] opacities likely atelectasis. DIVISION OF RADIOLOGY Provider, [facility] - 01/25/2025 * * *Final Report* * * DATE OF EXAM: Jan 25 2025 11:06AM [facility] 0[facility] - CT LUNG FOLLOWUP [facility] / PROCEDURE REASON: Lung nodule, < 6mm, high cancer risk * * * * Physician Interpretation * * * * [facility]: Lung nodules Technique: Spiral CT acquisition of the chest from the thoracic inlet to the upper abdomen without contrast. MQ: CTLCS_6 Followup LDCT Patient characteristics: * Utyt-fy-Bpdhl: 1955; Age at exam: 69 years * Gender: Female * Lung Disease: Asymptomatic (no signs or symptoms of lung disease) * Number of Pack Years: 38 * Current smoker (=0) or Number of Years since Quit: 15 * Ordering provider and NPI: MARICRUZ CAMP [id number] * Interpreting radiologist and NPI: Nicole [id number] Exam acquisition parameters: * Exam Date: 01/25/2025 11:06 AM * Site: [facility] * * CT System Wax Pourer: [employer] * CT System Model: Sensation * Tube [...] Recommendations: Followup LDCT in 6 months Reference: [employer]. Lung CT Screening Reporting and Data System (Lung-RADS). Available at: http://www.acr.org/Quality-Sa fety/Resources/LungRADS Power Electronics Engineer: PAT Transcribe Date/Time: Jan 25 2025 11:45A Dictated by : VIDAL PULLIAM MD This examination was interpreted and the report reviewed and electronically signed by: VIDAL PULLIAM MD on Jan 25 2025 11:51AM EST [facility] Radiology Study observation (narrative) [facility] CT Lung parenchyma WO contra stOrdered By: Ccf Provider on 01-25-2025 [facility] CNOVon 01-20-2025 CNOV Office Visit (FAMPWS ) RAJENDRA LUCERO ([id number]) 1955 F Date Time Provider Department 01/20/25 3:00 PM [facility]INES During your visit today, we recorded the [...] is currently diet controlled Hair thinning, 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 Feels she is coping okay. Has support from her children COPD oxygen dependent, stage 3., seeing Protection Analyst- recently had jaziel increased and feels this is helping her PAST MEDICAL HISTORY Diagnosis Date Chronic hypoxemic respiratory failure (HCC) COPD (chronic obstructive pulmonary disease) (HCC) 02/03/2010 Coronary artery disease No UT, CHF. No heart cath. Diverticulosis of colon [...] hours as needed for wheezing/shortness of breath. qvvjhvcwzkw-ubwwtqrie-nkhwjjd r (TRELEGY ELLIPTA) 200-62.5-25 mcg inhalation powder [...] kit, including (more content not included)... Normal [facility] Folate SerPl-ncon 01-21-20 25 Folate [Mass/Vol] 18.5 ng/mL Normal >4.7 [facility] Comment on above: Order Comment: Speckurt cook Type: BLOOD SPECIMENOrdering Facility: [facility] Address: [address] [place] [address] Performed By: #### 2 132-9, 2284-8 ####[facility] LABIA [id number] [place] [address] [place] Iron and Iron binding capaci [facility] 01-20-2025 Iron [Mass/Vol] 92 ug/dL Normal 41-186 [facility] Comment on above: Order Comment: Xiao cook Type: BLOOD SPECIMENOrdering Facility: [facility] Address: [address] [place] [address] Performed By: #### 3 051-0, 3024-7, 3016-3, 72910-7 ####[facility] LABIA [id number] [place] [address] [place] Iron binding capacity [Mass/Vol] 403 ug/dL High 232-386 [facility] Comment on above: Order Comment: Xiao cook Type: BLOOD SPECIMENOrdering Facility: [facility] Address: [address] [place] [address] Performed By: #### 3 051-0, 3024-7, 3016-3, 45122-8 ####[facility] LABCLIA [id number] [place] [id number] [place] Iron/TIBC [Molar ratio] 22.8 % Normal 15.0-57.0 [facility] Comment on above: Order Comment: Speci men Type: BLOOD SPECIMENOrdering Facility: [facility] Address: [address] [place] [address] Performed By: #### 3 051-0, 3024-7, 3016-3, 69685-9 ####[facility] LABCLIA [id number] [place] [id number] [place] T3Free SerPl-mCncon 01-21-20 25 Free T3 [Mass/Vol] 2.9 pg/mL Normal 2.3-4.1 [facility] Comment on above: Order Comment: Speci men Type: BLOOD SPECIMENOrdering Facility: [facility] Address: [address] [place] [address] Performed By: #### 3 051-0, 3024-7, 3016-3, 65841-2 ####[facility] LABCLIA [id number] [place] [id number] [place] T4 Free SerPl-mCncon 025 Free T4 [Mass/Vol] 0.9 ng/dL Normal 0.9-1.7 [facility] Comment on above: Order Comment: Speci men Type: BLOOD SPECIMENOrdering Facility: [facility] Address: [address] [place] [address] Performed By: #### 3 051-0, 3024-7, 3016-3, 02605-8 ####[facility] LABCLIA [id number] [place] [id number] [place] TSH SerPl-aCncon 01-20-2025 TSH Qn 2.860 m[IU]/L Normal 0.270-4.20 0 [facility] Comment on above: Order Comment: Speci men Type: BLOOD SPECIMENOrdering Facility: [facility] Address: [address] [place] [address] Performed By: #### 3 051-0, 3024-7, 3016-3, 76432-6 ####[facility] LABIA [id number] [place] [address] [place] Vit B12 SerPl-ncon 01-20- 025 Cobalamin (Vitamin B12) [Mass/Vol] 940 pg/mL Normal 232-1245 [facility] Comment on above: Order Comment: Speci men Type: BLOOD SPECIMENOrdering Facility: [facility] Address: [address] [place] [address] Performed By: #### 2 132-9, 2284-8 ####[facility] LABIA [id number] [place] [address] [place] CBC W Auto Differential pane l (Bld)on 01-13-2025 Basophils (Bld) [#/Vol] 0.06 10*3/uL Normal <0.11 [facility] Comment on above: Order Comment: Speci men Type: BLOOD SPECIMENOrdering Facility: [facility] Address: [address] [place] [address] Performed By: #### 5 7021-8 ####[facility] LABIA [id number] [address] [place] Basophils/100 WBC (Bld) 0.8 % Normal [facility] Comment on above: Order Comment: Speci men Type: BLOOD SPECIMENOrdering Facility: [facility] Address: [address] [place] [address] Performed By: #### 5 7021-8 ####[facility] LABIA [id number] [place] [address] [place] Differential cell count method Nom (Bld) Auto Normal [facility] Comment on above: Order Comment: Speci men Type: BLOOD SPECIMENOrdering Facility: [facility] Address: [address] [place] [address] Performed By: #### 5 7021-8 ####[facility] LABCLIA [id number] [facility] [address], [place] [address] [place] Eosinophils (Bld) [#/Vol] 0.20 10*3/uL Normal <0.46 [facility] Comment on above: Order Comment: Speci men Type: BLOOD SPECIMENOrdering Facility: [facility] Address: [address] [place] [address] Performed By: #### 5 7021-8 ####[facility] LABCLIA [id number] [facility] [address], [place] [address] [place] Eosinophils/100 WBC (Bld) 2.6 % Normal [facility] Comment on above: Order Comment: Speci men Type: BLOOD SPECIMENOrdering Facility: [facility] Address: [address] [place] [address] Performed By: #### 5 7021-8 ####[facility] LABCLIA [id number] [address], [place] [address] [place] Erythrocyte distribution width (RBC) [Ratio] 14.6 % Normal 11.5-15.0 [facility] Comment on above: Order Comment: Speci men Type: BLOOD SPECIMENOrdering Facility: [facility] Address: [address] [place] [address] Performed By: #### 5 7021-8 ####[facility] LABCLIA [id number] [address], [place] [address] [place] Hematocrit (Bld) [Volume fraction] 46.5 % High 36.0-46.0 [facility] Comment on above: Order Comment: Speci men Type: BLOOD SPECIMENOrdering Facility: [facility] Address: [address] [place] [address] Performed By: #### 5 7021-8 ####[facility] LABCLIA [id number] [address], [facility] [place] Hemoglobin (Bld) [Mass/Vol] 14.3 g/dL Normal 11.5-15.5 [facility] Comment on above: Order Comment: Speci men Type: BLOOD SPECIMENOrdering Facility: [facility] Address: [address] [place] [address] Performed By: #### 5 7021-8 ####[facility] LABCLIA [id number] [place] [id number] [place] Immature granulocytes (Bld) [#/Vol] 10*3/uL Normal <0.10 [facility] Comment on above: Order Comment: Speci men Type: BLOOD SPECIMENOrdering Facility: [facility] Address: [address] [place] [address] Performed By: #### 5 7021-8 ####[facility] LABCLIA [id number] [place] [address] [place] Immature granulocytes/100 WBC (Bld) 0.1 % Normal [facility] Comment on above: Order Comment: Speci men Type: BLOOD SPECIMENOrdering Facility: [facility] Address: [address] [place] [address] Performed By: #### 5 7021-8 ####[facility] LABCLIA [id number] [place] [address] [place] Lymphocytes (Bld) [#/Vol] 1.28 10*3/uL Normal 1.00-4.00 [facility] Comment on above: Order Comment: Speci men Type: BLOOD SPECIMENOrdering Facility: [facility] Address: [address] [place] [address] Performed By: #### 5 7021-8 ####[facility] [facility] [id number] [place] [address] [place] Lymphocytes/100 WBC (Bld) 16.9 % Normal [facility] Comment on above: Order Comment: Speci men Type: BLOOD SPECIMENOrdering Facility: [facility] Address: [address] [place] [address] Performed By: #### 5 7021-8 ####[facility] LABIA [id number] [place] [address] [place] MCH (RBC) [Entitic mass] 30.6 pg Normal 26.0-34.0 [facility] Comment on above: Order Comment: Speci men Type: BLOOD SPECIMENOrdering Facility: [facility] Address: [address] [place] [address] Performed By: #### 5 7021-8 ####[facility] LABIA [id number] [place] [address] [place] MCHC (RBC) [Mass/Vol] 30.8 g/dL Normal 30.5-36.0 [facility] Comment on above: Order Comment: Speci men Type: BLOOD SPECIMENOrdering Facility: [facility] Address: [address] [place] [address] Performed By: #### 5 7021-8 ####[facility] [id number] [place] [address] [place] MCV (RBC) [Entitic vol] 99.4 fL Normal 80.0-100.0 [facility] Comment on above: Order Comment: Speci men Type: BLOOD SPECIMENOrdering Facility: [facility] Address: [address] [place] [address] Performed By: #### 5 7021-8 ####[facility] [id number] [place] [address] [place] Monocytes (Bld) [#/Vol] 0.75 10*3/uL Normal <0.87 [facility] Comment on above: Order Comment: Speci men Type: BLOOD SPECIMENOrdering Facility: [facility] Address: [address] [place] [address] Performed By: #### 5 7021-8 ####[facility] [id number] [address] [address] [place] Monocytes/100 WBC (Bld) 9.9 % Normal [facility] Comment on above: Order Comment: Speci men Type: BLOOD SPECIMENOrdering Facility: [facility] Address: [address] [place] [address] Performed By: #### 5 7021-8 ####[facility]CLIA [id number] [place] [address] [place] Neutrophils (Bld) [#/Vol] 5.27 10*3/uL Normal 1.45-7.50 [facility] Comment on above: Order Comment: Speci men Type: BLOOD SPECIMENOrdering Facility: [facility] Address: [address] [place] [address] Performed By: #### 5 7021-8 ####[facility] [id number] [place] [address] [place] Neutrophils/100 WBC (Bld) 69.7 % Normal [facility] Comment on above: Order Comment: Speci men Type: BLOOD SPECIMENOrdering Facility: [facility] Address: [address] [place] [address] Performed By: #### 5 7021-8 ####[facility]CL[facility] [id number] [place] [address] [place] Nucleated RBC (Bld) [#/Vol] 10*3/uL Normal <0.01 [facility] Comment on above: Order Comment: Speci men Type: BLOOD SPECIMENOrdering Facility: [facility] Address: [address] [place] [address] Performed By: #### 5 7021-8 ####[facility] [id number] [place] [address] [place] Nucleated RBC/100 WBC (Bld) [Ratio] 0.0 /100 WBC Normal [facility] Comment on above: Order Comment: Speci men Type: BLOOD SPECIMENOrdering Facility: [facility] Address: [address] [place] [address] Performed By: #### 5 7021-8 ####[facility] [id number] [place] [id number] [place] Platelet mean volume (Bld) [Entitic vol] 11.6 fL Normal 9.0-12.7 [facility] Comment on above: Order Comment: Speci men Type: BLOOD SPECIMENOrdering Facility: [facility] Address: [address] [place] [address] Performed By: #### 5 7021-8 ####[facility] LABIA [id number] [place] [address] [place] Platelets (Bld) [#/Vol] 266 10*3/uL Normal 150-400 [facility] Comment on above: Order Comment: Speci men Type: BLOOD SPECIMENOrdering Facility: [facility] Address: [address] [place] [address] Performed By: #### 5 7021-8 ####[facility] LABIA [id number] [place] [address] [place] RBC (Bld) [#/Vol] 4.68 10*6/uL Normal 3.90-5.20 [facility] Comment on above: Order Comment: Speci men Type: BLOOD SPECIMENOrdering Facility: [facility] Address: [address] [place] [address] Performed By: #### 5 7021-8 ####[facility] LABIA [id number] [place] [address] [place] WBC (Bld) [#/Vol] 7.57 10*3/uL Normal 3.70-11.00 [facility] Comment on above: Order Comment: Speci men Type: BLOOD SPECIMENOrdering Facility: [facility] Address: [address] [place] [address] Performed By: #### 5 7021-8 ####[facility]CLIA [id number] [address] [place] [address] [place] Comprehensive metabolic 2000 panelon 01-13-2025 Albumin [Mass/Vol] 4.6 g/dL Normal 3.9-4.9 [facility] Comment on above: Order Comment: Speci men Type: BLOOD SPECIMENOrdering Facility: [facility] Address: [address] [place], [place] [address] Performed By: #### 2 4323-8, 80182-6 ####[facility]CLIA [id number] [address] [place] [address] [place] ALP [Catalytic activity/Vol] 77 U/L Normal 34-123 [facility] Comment on above: Order Comment: Speci men Type: BLOOD SPECIMENOrdering Facility: [facility] Address: [address] [place] [address] Performed By: #### 2 4323-8, 43563-3 ####[facility]CLIA [id number] [address], [facility]95 [place] ALT [Catalytic activity/Vol] 27 U/L Normal 7-38 [facility] Comment on above: Order Comment: Speci men Type: BLOOD SPECIMENOrdering Facility: [facility] Address: [address] [place], [place] [address] Performed By: #### 2 4323-8, 35154-2 ####[facility]CLIA [id number] [address], [facility]95 [place] Anion gap [Moles/Vol] 12 mmol/L Normal 8-15 [facility] Comment on above: Order Comment: Speci men Type: BLOOD SPECIMENOrdering Facility: [facility] Address: [address] [place], [place] [address] Performed By: #### 2 4323-8, 51111-0 ####[facility]CLIA [id number] [address] [place] [address] [place] AST [Catalytic activity/Vol] 24 U/L Normal 13-35 [facility] Comment on above: Order Comment: Speci men Type: BLOOD SPECIMENOrdering Facility: [facility] Address: [address] [place] [address] Performed By: #### 2 4323-8, 99513-6 ####[facility] [id number] [place] [address] [place] Bilirubin [Mass/Vol] 0.6 mg/dL Normal 0.2-1.3 [facility] Comment on above: Order Comment: Speci men Type: BLOOD SPECIMENOrdering Facility: [facility] Address: [address] [place] [address] Performed By: #### 2 4323-8, 35112-7 ####[facility]CLIA [id number] [place] [address] [place] Calcium [Mass/Vol] 10.0 mg/dL Normal 8.5-10.2 [facility] Comment on above: Order Comment: Speci men Type: BLOOD SPECIMENOrdering Facility: [facility] Address: [address] [place] [address] Performed By: #### 2 4323-8, 77367-1 ####[facility]CLIA [id number] [place] [address] [place] Chloride [Moles/Vol] 94 mmol/L Low 98-107 [facility] Comment on above: Order Comment: Speci men Type: BLOOD SPECIMENOrdering Facility: [facility] Address: [address] [place] [address] Performed By: #### 2 4323-8, 08912-5 ####[facility]CLIA [id number] [place] [address] [place] CO2 [Moles/Vol] 37 mmol/L High 22-30 [facility] Comment on above: Order Comment: Speci men Type: BLOOD SPECIMENOrdering Facility: [facility] Address: [address] [place] [id number] Performed By: #### 2 4323-8, 16352-7 ####[facility] [id number] [place] [address] [place] Creatinine [Mass/Vol] 0.56 mg/dL Low 0.58-0.96 [facility] Comment on above: Order Comment: Xiao cook Type: BLOOD SPECIMENOrdering Facility: [facility] Address: [address] [place] [address] Performed By: #### 2 4323-8, 76121-3 ####[facility] [id number] [place] [address] [place] Creatinine and Glomerular filtration rate.predicted panel (S/P/Bld) 100 mL/min/1.73m??? Normal >=60 [facility] Comment on above: Order Comment: Xiao cook Type: BLOOD SPECIMENOrdering Facility: [facility] Address: [address] [place] [address] Result Comment: Marcia mated Glomerular Filtration Rate [...] reflect actual GFR. Performed By: #### 2 4323-8, 73865-7 ####[facility] [id number] [place] [id number] [place] Glucose [Mass/Vol] 112 mg/dL High 74-99 [facility] Comment on above: Order Comment: Xiao cook Type: BLOOD SPECIMENOrdering Facility: [facility] Address: [address] [place] [address] Result Comment: The [place] [employer] (ADA) provides guidance for cutoff [...] Standards of Medical Care in Diabetes 2016, [place] [employer]. Diabetes Care. 2016.39(Suppl 1). Performed By: #### 2 4323-8, 80522-9 ####[facility]CLIA [id number] [address] [address] [place] Potassium [Moles/Vol] 4.3 mmol/L Normal 3.7-5.1 [facility] Comment on above: Order Comment: Speci men Type: BLOOD SPECIMENOrdering Facility: [facility] Address: [address] [place] [address] Performed By: #### 2 4328, ####[facility] LABIA [id number] [address] [address] [place] Protein [Mass/Vol] 7.7 g/dL Normal 6.3-8.0 [facility] Comment on above: Order Comment: Speci men Type: BLOOD SPECIMENOrdering Facility: [facility] Address: [address] [place], [place] [address] Performed By: #### 2 4328, ####[facility]IA [id number] [facility] [address] [address] [place] Sodium [Moles/Vol] 143 mmol/L Normal 136-144 [facility] Comment on above: Order Comment: Speci men Type: BLOOD SPECIMENOrdering Facility: [facility] Address: [address] [place] [phone] Performed By: #### 2 4323-8, ####[facility]IA [id number] [address] [address] [place] Urea nitrogen [Mass/Vol] 12 mg/dL Normal 7-21 [facility] Comment on above: Order Comment: Xiao cook Type: BLOOD SPECIMENOrdering Facility: [facility] Address: [address] [place] [address] Performed By: #### 2 4323-8, 75367-5 ####[facility]CLIA [id number] [place] [id number] [place] HbA1c (Bld)on 01-13-2025 Average glucose Estimated from glycated hemoglobin (Bld) [Mass/Vol] 114 mg/dL Normal [facility] Comment on above: Order Comment: Xiao cook Type: BLOOD SPECIMENOrdering Facility: [facility] Address: [address] [place] [address] Result Comment: eAG: (Estimated average glucose) is a calculated value from HgbA1c and is guest services representative of the average blood glucose level in the last 2-3 month period. Performed By: #### 5 5454-3 ####[facility] [id number] [place] [id number] [place] HbA1c (Bld) [Mass fraction] 5.6 % Normal 4.3-5.6 [facility] Comment on above: Order Comment: Xiao cook Type: BLOOD SPECIMENOrdering Facility: [facility] Address: [address] [place] [address] Result Comment: Amer [place] Diabetes Association guidelines indicate that patients with HgbA1c in the range 5.7-6.4% are at increased risk for development of diabetes, and intervention by lifestyle modification may be beneficial. HgbA1c greater or equal to 6.5% is considered diagnostic of diabetes. Performed By: #### 5 5454-3 ####[facility] LABCLIA [id number] [address] [address] [place] Lipid 1996 panelon 5 Cholesterol [Mass/Vol] 233 mg/dL High <200 [facility] Comment on above: Order Comment: Xiao cook Type: BLOOD SPECIMENOrdering Facility: [facility] Address: [address] [place] [address] Result Comment: <200 mg/dL, Desirable 200-239 mg/dL, Borderline high >239 mg/dL, High Performed By: #### 2 4323-8, 72190-5 ####[facility]CLIA [id number] [facility] [id number] [address] [place] Cholesterol in HDL [Mass/Vol] 91 mg/dL Normal >39 [facility] Comment on above: Order Comment: Saniyai men Type: BLOOD SPECIMENOrdering Facility: [facility] Address: [address] [place] [address] Result Comment: 40-5 9 mg/dL, Acceptable >59 mg/dL, High: Negative risk factor for coronary heart disease <40 mg/dL, Low: Positive risk factor for coronary heart disease Performed By: #### 2 4323-8, 33082-4 ####[facility]CLIA [id number] [facility] [id number], [place] [address] [place] Cholesterol in LDL [Mass/Vol] 128 mg/dL High <100 [facility] Comment on above: Order Comment: Xiao men Type: BLOOD SPECIMENOrdering Facility: [facility] Address: [address] [place] [address] Result Comment: <100 mg/dL, Optimal 100-129 mg/dL, Near optimal/above optimal 130-159 mg/dL, Borderline high 160-189 mg/dL, High >189 mg/dL, Very high Secondary prevention optimal LDL Cholesterol levels are recommended to be < 70 mg/dL Performed By: #### 2 4323-8, 30208-7 ####[facility]CLIA [id number] [facility] [id number] [place] [address] [place] Cholesterol in LDL/Cholesterol in HDL [Mass ratio] 1.41 {ratio} Normal <2.54 [facility] Comment on above: Order Comment: Saniyai men Type: BLOOD SPECIMENOrdering Facility: [facility] Address: [address] [place] [address] Result Comment: Refe bright: 1. National Cholesterol Education Program ATP III Guideline At-A-Glance Quick Desk Reference: National Heart, Lung, and Blood [place]. National Institutes of Health. 2001: NIH Publication No. 01-3305. 2. An International Atherosclerosis Society position paper: global recommendations for the management of dyslipidemia: executive summary, Atherosclerosis. 2014: 232(2):410-413. Performed By: #### 2 4323-8, 40510-1 ####[facility]CLIA [id number] [place] [address] [place] Cholesterol in VLDL [Mass/Vol] 14 mg/dL Normal <30 [facility] Comment on above: Order Comment: Saniyai men Type: BLOOD SPECIMENOrdering Facility: [facility] Address: [address] [place] [address] Performed By: #### 2 4323-8, 12391-8 ####[facility] LABIA [id number] [place] [address] [place] Cholesterol non HDL [Mass/Vol] 142 mg/dL High <130 [facility] Comment on above: Order Comment: Xiao cook Type: BLOOD SPECIMENOrdering Facility: [facility] Address: [address] [place] [address] Result Comment: <130 mg/dL, Optimal 130-159 mg/dL, Near optimal/above optimal 160-189 mg/dL, Borderline high 190-219 mg/dL, High >219 mg/dL, Very high Secondary prevention optimal non HDL Cholesterol levels are recommended to be <100 mg/dL Performed By: #### 2 4323-8, 83433-7 ####[facility] LABIA [id number] [place] [id number] [place] Cholesterol.total/Cho lesterol in HDL [Mass ratio] 2.56 {ratio} Normal <5.10 [facility] Comment on above: Order Comment: Saniyai men Type: BLOOD SPECIMENOrdering Facility: [facility] Address: [address] [place] [address] Performed By: #### 2 4323-8, 05250-6 ####[facility] LABCLIA [id number] [place] [address] [place] FASTING TIME 12 hrs Normal [facility] Comment on above: Order Comment: Speci men Type: BLOOD SPECIMENOrdering Facility: [facility] Address: [address] [place] [address] Performed By: #### 2 4323-8, 09672-7 ####[facility] LABIA [id number] [place] [address] [place] Triglyceride [Mass/Vol] 72 mg/dL Normal <150 [facility] Comment on above: Order Comment: Speci men Type: BLOOD SPECIMENOrdering Facility: [facility] Address: [address] [place] [address] Result Comment: <150 mg/dL, Normal 150-199 mg/dL, Borderline high 200-499 mg/dL, High >499 mg/dL, Very high Performed By: #### 2 4323-8, 81054-4 ####[facility] LABIA [id number] [place] [address] [place] CNOVon 12-25-2024 CNOV Office Visit (PULMWS ) RAJENDRA LUCERO ([id number]) 1955 F Date Time Provider Department 12/25/24 11:30 AM RAJENDRA GOODMAN PULMWS During your visit today, we recorded the following information about you: Pulse Respiration Blood pressure Weight 92/minute 20/minute 134/64 119.1 kg Rajendra Goodman, [facility] ASSISTANT DIRECTOR.PRACTICE NURSE 12/25/2024 12:29 PM Signed Pulmonary Medicine Patients name: Rajendra Palumbo PCP: Phuc Martines DO CC: follow-up COPD HPI: Rajendra Lucero is a 69 year old female former 03-istr-lbwl smoker, quitting in 2008 with PMH significant [...] disease) (HCC) 02/03/2010 Coronary artery disease No UT, CHF. No heart cath. Diverticulosis of colon [...] ELLIPTA 100-62.5-25 mcg inhalation powder Generic drug: fhseaugvydb-xmawgkofj-clctoet r USE 1 INHALATION DAILY INSTRUCTED triamcinolone [...] prior chest CT examinations is needed. Reference: [place] [employer]. Lung CT Screening Reporting and Data System (Lung-RADS). Available at: http://www.acr.org/Quality-Sa fety/Resources/LungRADS Power Electronics Engineer: PAT Transcribe Date/Time: Oct 19 2024 11:21A Dictated by : VIDAL PULLIAM MD This examination was interpreted and the report reviewed and electronically signed by: VIDAL PULLIAM MD on Oct 19 2024 11:28AM EST Results-Findings * * *Final Report* * * DATE OF EXAM: Oct 19 2024 10:09AM [facility] 0562 - CT LUNG SCREEN WO IVCON / PROCEDURE REASON: Former cigarette smoker * * * * Physician Interpretation * * * * EXAMINATION: CHEST CT WITHOUT CONTRAST (LOW-DOSE CT LUNG CANCER SCREENING MICHAEL (more content not included)... Normal [facility] DBT Breast - bilateral scree camilon 12-03-2024 [...] Manish Quintana M.D. Electronically signed on: 12/03/2024 Power Electronics Engineer: SHAMEKA Transcrighazal Date/Time: Dec 03 2024 11:01A Dictated by: MANISH QUINTANA MD This examination was interpreted and the report reviewed and electronically signed by: MANISH QUINTANA MD on Dec 03 2024 6:47PM [facility] DIVISION OF RADIOLOGY * * *Final Report* * * DATE OF EXAM: Dec 03 2024 11:38AM [facility] 0582 - [facility] SCREENING W ASHLEY / PROCEDURE REASON: Encounter for screening mammogram for breast cancer * * * * Physician Interpretation * * * * RESULT: [facility] [address] [place] [address] #[id number] - [facility] [place] [facility] SCREENING W ASHLEY HISTORY: 69 year-old patient [...] in either breast. DIVISION OF RADIOLOGY Provider, [facility] - 12/03/2024 * * *Final Report* * * DATE OF EXAM: Dec 03 2024 11:38AM [facility] 0582 - [facility] [facility] SCREENING W ASHLEY / PROCEDURE REASON: Encounter for screening mammogram for breast cancer * * * * Physician Interpretation * * * * RESULT: [place] [address] #[id number] - [facility] [place] SCREENING W ASHLEY HISTORY: 69 year-old patient [...] Manish Quintana M.D. Electronically signed on: 12/03/2024 Power Electronics Engineer: SHAMEKA [employer]crighazal Date/Time: Dec 03 2024 11:01A Dictated by: MANISH QUINTANA MD This examination was interpreted and the report reviewed and electronically signed by: MANISH QUINTANA MD on Dec 03 2024 6:47PM EST [facility] Radiology Study observation (narrative) [facility] DBT Breast - bilateral scree ningOrdered By: Cccoleen Provider on 12-03-2024 [facility] ANUSHA SCREENING W TOMOon 12-03 [facility] SCREENING W ASHLEY * * *Final Report* * * DATE OF EXAM: Dec 03 2024 11:38AM [facility] 0582 - [facility] SCREENING W ASHLEY / PROCEDURE REASON: Encounter for screening mammogram for breast cancer * * * * Physician Interpretation * * * * RESULT: [place] [address] #[id number] - [facility] SCREENING W ASHLEY HISTORY: 69 [...] Manish Quintana M.D. Electronically signed on: 12/03/2024 Power Electronics Engineer: SHAMEKA Fanrighazal Date/Time: Dec 03 2024 11:01A Dictated by: MANISH QUINTANA MD This examination was interpreted and the report reviewed and electronically signed by: MANISH QUINTANA MD on Dec 03 2024 6:47PM EST [id number] Normal [facility] CNOVon 10-19-2024 CNOV Office Visit (PULMWS ) RAJENDRA LUCERO ([id number]) 1955 F Date Time Provider Department 10/19/24 [...] which included preparing to see the patient, btsh-lj-cptd patient care, completing clinical documentation, performing a medically appropriate examination, counseling and educating the patient/family/caregiver, ordering medications, tests, or procedures, communicating with other HCPs (not separately reported), independently interpreting results (not separately reported), communicating results to the patient/family/caregiver, and care coordination (not separately reported). Maricruz Camp, JAKI.[facility] October 19, 2024 10:28 AM History [...] albuterol if feeling sick. Modified Medical Research Te-Moak Dyspnea Scale (MMRC) I am too breathless [...] Medical Hi (more content not included)... Normal [facility] CT Chest for screening WO co ntraston 10-19-2024 IMPRESSION: LungRADS category: 0 LungRADS modifier: None LungRADS 0 reason: n/a Recommendations: Additional lung cancer screening CT images and/or comparison to prior chest CT examinations is needed. Reference: [place] [employer]. Lung CT Screening Reporting and Data System (Lung-RADS). Available at: http://www.acr.org/Quality-Sa fety/Resources/LungRADS Power Electronics Engineer: PAT Transcribe Date/Time: Oct 19 2024 11:21A Dictated by : VIDAL PULLIAM MD This examination was interpreted and the report reviewed and electronically signed by: VIDAL PULLIAM MD on Oct 19 2024 11:28AM [facility] DIVISION OF RADIOLOGY * * *Final Report* * * DATE OF EXAM: Oct 19 2024 10:09AM [facility] 0562 - CT LUNG SCREEN WO [...] without contrast. MQ: CTLCS_6 Patient characteristics: * Uwvs-bt-Qtzwu: 1955; Age at exam: 69 years * Gender: Female * Lung Disease: Asymptomatic (no signs or symptoms of lung disease) * Number of Pack Years: 38 * Current smoker (=0) or Number of Years since Quit: 15 * Ordering provider and NPI: MARICRUZ CAMP [id number] * Interpreting radiologist and NPI: Nicole [id number] Exam acquisition parameters: * Exam Date: 10/19/2024 10:09 AM * Site: [facility] * * CT System Wax Pourer: Siemens * CT System Model: Sensation * [...] [* https://www.pettit-nhlbi.org/ca lcium/input.aspx] DIVISION OF RADIOLOGY Provider, [facility] - 10/19/2024 * * *Final Report* * * DATE OF EXAM: Oct 19 2024 10:09AM [facility] 0562 - CT LUNG SCREEN [facility] / PROCEDURE REASON: Former cigarette [...] without contrast. MQ: CTLCS_6 Patient characteristics: * Ccwf-lv-Srbjx: 1955; Age at exam: 69 years * Gender: Female * Lung Disease: Asymptomatic (no signs or symptoms of lung disease) * Number of Pack Years: 38 * Current smoker (=0) or Number of Years since Quit: 15 * Ordering provider and NPI: MARICRUZ CAMP [id number] * Interpreting radiologist and NPI: Nicole [id number] Exam acquisition parameters: * Exam Date: 10/19/2024 10:09 AM * Site: [facility] * * CT System Wax Pourer: Siemens * CT System Model: Sensation * [...] prior chest CT examinations is needed. Reference: [employer]. Lung CT Screening Reporting and Data System (Lung-RADS). Available at: http://www.acr.org/Quality-Sa fety/Resources/LungRADS Power Electronics Engineer: PAT Transcribe Date/Time: Oct 19 2024 11:21A Dictated by : VIDAL PULLIAM MD This examination was interpreted and the report reviewed and electronically signed by: VIDAL PULLIAM MD on Oct 19 2024 11:28AM EST [facility] Radiology Study observation (narrative) [facility] CT Chest for screening WO co ntrastOrdered By: Ccf Provider on 10-19-2024 [facility] [address] LUNG SCREEN WO IVCONon CT LUNG SCREEN WO IVCON * * *Final Report* * * DATE OF EXAM: Oct 19 2024 10:09AM [facility] 0562 - CT LUNG SCREEN WO [...] without contrast. MQ: CTLCS_6 Patient characteristics: * Ebcc-qg-Vcwss: 1955; Age at exam: 69 years * Gender: Female * Lung Disease: Asymptomatic (no signs or symptoms of lung disease) * Number of Pack Years: 38 * Current smoker (=0) or Number of Years since Quit: 15 * Ordering provider and NPI: MARICRUZ CAMP [id number] * Interpreting radiologist and NPI: Nicole [id number] Exam acquisition parameters: * Exam Date: 10/19/2024 10:09 AM * Site: [facility] * * CT System Wax Pourer: Siemens * CT System Model: Sensation * [...] prior chest CT examinations is needed. Reference: [employer]. Lung CT Screening Reporting and Data System (Lung-RADS). Available at: http://www.acr.org/Quality-Sa fety/Resources/LungRADS Power Electronics Engineer: PSCB Transcribe Date/Time: Oct 19 2024 11:21A Dictated by : VIDAL PULLIAM MD This examination was interpreted and the report reviewed and electronically signed by: VIDAL PULLIAM MD on Oct 19 2024 11:28AM EST [id number] Normal [facility] ANUSHA SCREENINGon 09-17-2023 [facility] CBC W Auto Differential pane l (Bld)on 08-14-2023 Basophils (Bld) [#/Vol] 0.06 10*3/uL <0.11 k/uL [facility] Basophils/100 WBC (Bld) 0.8 % [facility] Differential cell count method Nom (Bld) Auto [facility] Eosinophils (Bld) [#/Vol] 0.17 10*3/uL <0.46 k/uL [facility] Eosinophils/100 WBC (Bld) 2.3 % [facility] Erythrocyte distribution width (RBC) [Ratio] 14.0 % 11.5 - 15.0 % [facility] Hematocrit (Bld) [Volume fraction] 45.6 % 36.0 - 46.0 % [facility] Hemoglobin (Bld) [Mass/Vol] 14.5 g/dL 11.5 - 15.5 g/dL [facility] Immature granulocytes (Bld) [#/Vol] 0.04 10*3/uL <0.10 k/uL [facility] Immature granulocytes/100 WBC (Bld) 0.5 % [facility] Lymphocytes (Bld) [#/Vol] 1.10 10*3/uL 1.00 - 4.00 k/uL [facility] Lymphocytes/100 WBC (Bld) 14.8 % [facility] MCH (RBC) [Entitic mass] 31.6 pg 26.0 - 34.0 pg [facility] MCHC (RBC) [Mass/Vol] 31.8 g/dL 30.5 - 36.0 g/dL [facility] MCV (RBC) [Entitic vol] 99.3 fL 80.0 - 100.0 fL [facility] Monocytes (Bld) [#/Vol] 0.61 10*3/uL <0.87 k/uL [facility] Monocytes/100 WBC (Bld) 8.2 % [facility] Neutrophils (Bld) [#/Vol] 5.45 10*3/uL 1.45 - 7.50 k/uL [facility] Neutrophils/100 WBC (Bld) 73.4 % [facility] Nucleated RBC (Bld) [#/Vol] <0.01 k/uL [facility] Nucleated RBC/100 WBC (Bld) [Ratio] 0.0 /100 WBC [facility] Platelet mean volume (Bld) [Entitic vol] 11.7 fL 9.0 - 12.7 fL [facility] Platelets (Bld) [#/Vol] 222 10*3/uL 150 - 400 k/uL [facility] RBC (Bld) [#/Vol] 4.59 10*6/uL 3.90 - 5.20 m/uL [facility] WBC (Bld) [#/Vol] 7.43 10*3/uL 3.70 - 11.00 k/uL [facility] OXIMETRY WITH AMBULATIONon 0 06-13-2023 [facility] US ABD SPLEENon 03-06-2023 [facility] No Panel Informationon 10-10 [facility] XR Chest PA and Lateralon IMPRESSION: Overall findings unchanged. Power Electronics Engineer: PSCB Transcribe Date/Time: Oct 01 2022 5:09P Dictated by : MORAIMA CARDENAS MD This examination was interpreted and the report reviewed and electronically signed by: MORAIMA CARDENAS MD on Oct 01 2022 5:10PM [facility] DIVISION OF RADIOLOGY * * [...] soft tissues: Unremarkable. DIVISION OF RADIOLOGY Provider, Shannon Arteaga - 10/01/2022 * * *Final Report* * [...] tissues: Unremarkable. IMPRESSION IMPRESSION: Overall findings unchanged. Power Electronics Engineer: PAT Transcribe Date/Time: Oct 01 2022 5:09P Dictated by : MORAIMA CARDENAS MD This examination was interpreted and the report reviewed and electronically signed by: MORAIMA CARDENAS MD on Oct 01 2022 5:10PM EST [facility] XR Chest PA and LateralOrder ed By: Ccf Provider on 10-01-2022 [facility] XR Chest PA and Lateralon Radiology Study observation (narrative) [facility] ANUSHA SCREENINGon 09-11-2022 [facility] US ABD SPLEENon 09-03-2022 [facility] [address] CHEST WO IVCONon 08-30-20 Radiology Result ACTIONABLE Abnormal [facility] OXIMETRY WITH AMBULATIONon 0 03-16-2022 [facility] XR Foot - right AP and Later al and obliqueon 01-10-2021 IMPRESSION: Mild deg enerative changes Power Electronics Engineer: PAT Transcribe Date/Time: Jan 10 2021 11:21A [...] erosions. No fracture. DIVISION OF RADIOLOGY Provider, [facility] - 01/10/2021 * * *Final [...] No fracture. IMPRESSION IMPRESSION: Mild degenerative changes Power Electronics Engineer: [facility]ITALJessika Transcribe Date/Time: Jan 10 2021 11:21A Dictated by : ROXANNE MARTEL MD This examination was interpreted and the report reviewed and electronically signed by: ROXANNE MARTEL MD on Jan 10 2021 11:23AM EST [facility] Radiology Study observation (narrative) [facility] XR Foot - right AP and Later al and obliqueOrdered By: Ccf Provider on 01-10-2021 [facility] ANES Regina 09-10-2018 ANES POST HNO ID: [id number] thor: Cornelio Alatorre: AnesthesiologyAuthor Type: AnesthesiologistType: Anesthesia PostOpFiled: 09/10/2018 1:54 [...] 10, 2018 : 1:54 PM PAGER/CONTACT #: [phone] [facility] ANES PREOPon 09-10-2018 ANES PREOP HNO ID: [id number] thor: Ann-Marie Garciaervice: AnesthesiologyAuthor Type: AnesthesiologistType: Anesthesia PreOpFiled: 09/10/2018 11:07 AMNote Text: ANESTHESIOLOGY DAY OF SURGERY NOTESERVICE DATE: 09/10/2018SERVICE TIME: 11:06 AMDOB: 1955Procedure(s) (LRB):COLONOSCOPY (N/A)Surgeon(s):Margot YorkanEstimmisha body mass index is 43.94 kg/m? as calculated from the following: Height as of this encounter: 162.6 cm (5' 4). Weight as of this encounter: 116.1 kg (256 lb).Most recent hematocrit and potassium results:Hematocrit 46.7 02/01/2017Potassium 4.0 05/02/2018ANES DOS/PREOP NOTE:Vitals: 572611VF: 146/83Pulse: 91Resp: 16Temp: (!) 63 ?C (145.4 ?F)SpO2: 94%Weight: 116.1 kg (256 lb)Height: 162.6 cm (5' 4)ACTIVE PROBLEM LISTLeiomyoma of Uterus, UnspecifiedOBESITYEssential HypertensionPAIN FLANKIrritable Bowel SyndromeCopd (Chronic Obstructive Pulmonary Disease) ([facility])HypoxemiaFormer SmokerObstructive Sleep ApneaWell Adult ExamChronic Obstructive Pulmonary Disease ([facility])Obesity, Class III, BMI >= 40 (morbid obesity) E66.01Oxygen DependentAcute Bronchitis With Chronic Obstructive Pulmonary Disease (Copd) ([facility])Impaired Fasting GlucoseScreening for Colon CancerPAST MEDICAL HISTORYDiagnosis Date- COPD (chronic obstructive pulmonary disease) ([facility]) 02/03/2010- Coronary artery disease No UT, CHF. No heart cath.- Diverticulosis of colon (without mention of hemorrhage)- Essential hypertension, benign- Fibrocystic breast- Former smoker- Internal hemorrhoids without mention of complication- Leiomyoma of uterus, unspecified- Obstructive sleep apnea Mild. Not prescribed CPAP, only 2L nasal O2.PAST SURGICAL HISTORYProcedure Laterality Date- BREAST LUMPECTOMY HX Right 1997- COLONOSCOP W/ OR W/O [facility] SPEC 08/27/08 repeat due 2017- IMPACT [...] to Encounter:Lactobacillus acidophilus (PROBIOTIC ORAL) Take by mouth.ogvjavexzse-xsqtoimpb-m ilanter (TRELEGY ELLIPTA) 100-62.5-25 mcg dsdvInhale 1 Puff as instructed once daily.NYAMYC powder APPLY 1 APPLICATION TO AFFECTED AREA FOUR TIMES A DAY(Patient taking differently: prn)triamterene-hydrochloroth iazide 37.5-25 mg per capsule TAKE 1 CAPSULEDAILYCOMPOUNDED PRESCRIPTION Please do nocturnal oximetry on 2 L. DME: [facility].ipratropium-albut alan (DUONEB) 0.5 mg-3 mg(2.5 mg base)/3 [...] : Ann-Marie Tejada MD PATIENT NAME: Rajendra VyasellisDATE: September 10, 2018 : 11:06 AM CSN: [id number] Normal [facility] HISTORY PHYSICALon 8 HISTORY PHYSICAL HNO ID: [id number] thor: Margot Boudreaux [facility] CenteranService: General SurgeryAuthor Type: PhysicianType: HANDPFiled: 09/10/2018 10:34 AMNote Text:?HISTORY AND PHYSICAL?Rajendra Sahni Crjdzq1955?REFERRING PHYSICIAN: Phuc Martines, DO?CHIEF COMPLAINT: Consult (Consult [...] upper GI complaints.?Rajendra has undergone prior endoscopy, [address] [...] HISTORYDiagnosis Date- COPD (chronic obstructive pulmonary disease) ([facility]) 02/03/2010- Coronary artery disease ?? No UT, CHF. No heart cath.- Diverticulosis of colon (without mention of hemorrhage) ?- Essential hypertension, benign ?- Fibrocystic breast ?- Former smoker ?- Internal hemorrhoids without mention of complication ?- Leiomyoma of uterus, unspecified ?- Obstructive sleep apnea ?? Mild. Not prescribed CPAP, only 2L nasal O2.??PAST SURGICAL HISTORYPAST SURGICAL HISTORYProcedure Laterality Date- BREAST LUMPECTOMY HX Right 1997- COLONOSCOP W/ OR W/O [facility] SPEC ? 08/27/08? repeat due 2017- IMPACT TOOTH REMOV COMP BONY ? ?? WISDOM TEETH- INGUINAL HERNIA REPAIR HX ? 1975? bilateral- PAST SURGICAL HISTORY OF ? ?? hemangioma left cheek???CURRENT MEDICATIONS?Current Outpatient Prescriptions:Lactobacillus acidophilus (PROBIOTIC ORAL) Take by mouth.nzbvsuogmye-lbfjwyvwd-g ilanter (TRELEGY ELLIPTA) 100-62.5-25 mcg dsdvInhale 1 Puff as instructed once daily.NYAMYC powder APPLY 1 APPLICATION TO AFFECTED AREA FOUR TIMES A DAYtriamterene-hydrochlorothi azide 37.5-25 mg per capsule TAKE 1 CAPSULEDAILYCOMPOUNDED PRESCRIPTION Please do nocturnal oximetry on 2 L. DME: [facility].ipratropium-albut alan (DUONEB) 0.5 mg-3 mg(2.5 mg base)/3 [...] notes Sx?pelvic floor prolapse, recommend evaluation by TICKET COLLECTOR OR USHER-patient states hasappt in September. COPD, on oxygen [...] have been communicated to Dr. Martines via [place] medicalrecord. This note will be forwarded to Dr. Phuc Martines, DO.Return to Clinic: The patient is instructed to follow-up with me 1 weekpost operatively.? Basia Ely PA-C [facility] NURSING PROGon 09-10-2018 Protein mass conc HNO ID: [id number] Author: Kajal (Rn) HERRERA Rodney Service: Nursing Author Type: Registered Nurse Type: Nursing Progress Note Filed: 09/10/2018 1:11 PM Note Text: 1245 pt to PACU. TRIANA TCx4. Denies pain. PIV DANDI. VSS no s/sx of distress. [facility] PT EDon 09-10-2018 PT ED HNO ID: [id number] thor: Sola Velazquez, RNService: (none)Author Type: Registered NurseType: Patient EducationFiled: [...] By: Sola Velazquez RN, BSN In Department[facility] PT ED HNO ID: [id number] thor: LAITH De Rnervice: NursingAuthor Type: Registered NurseType: Patient EducationFiled: 09/10/2018 11:05 AMNote Text:PRE OP LEARNING ASSESSMENTPROCEDURE/SURGERY: GI PROCEDURES: ColonoscopyREADINESS TO LEARNCOGNITIVE ABILITY: Alert and orientedMOTIVATION TO LEARN: InterestedFAMILY SUPPORT: High - Very involved in pt carePATIENT LEARNS BEST BY: Verbal InstructionFACTORS AFFECTING LEARNING: NonePHYSICAL LIMITATIONS AFFECTING LEARNING: NoneElectronically Signed By: Roni Bailey RN [facility] NURSING PROGon 09-09-2018 Protein mass conc HNO ID: [id number] thor: LAITH Landrum Rnervice: NursingAuthor Type: Registered NurseType: Nursing Progress NoteFiled: [...] Considerations:N/AChart Check:Hieu Waters RNNovember 2017 9:58 AM [facility] HISTORY PHYSICALon HISTORY PHYSICAL HNO ID: [id number] thor: Dante Goncalves Pa-C: (none)Author Type: Physician AssistantType: HANDPFiled: 09/05/2018 9:59 AMNote Text:HISTORY AND PHYSICAL EXAMINATIONSERVICE DATE: 09/05/2018SERVICE TIME: 9:20 AMPR[facility]KAL[facility] PHYSICIAN: TRAVIS Falk FOR VISIT:Rajendra Lucero is a 63 year old female who is scheduled for PACC atthe request of Dr. Margot Galvan for consultation. My finalrecommendation will be communicated back to the requesting physician byway of shared medical record or letter.The patient has the following:ACTIVE PROBLEM LISTLeiomyoma of Uterus, UnspecifiedOBESITYEssential HypertensionPAIN FLANKIrritable Bowel SyndromeCopd (Chronic Obstructive Pulmonary Disease) ([facility])HypoxemiaFormer SmokerObstructive Sleep ApneaWell Adult ExamChronic Obstructive Pulmonary Disease ([facility])Obesity, Class III, BMI >= 40 (morbid obesity) E66.01Oxygen DependentAcute Bronchitis With Chronic Obstructive Pulmonary Disease (Copd) ([facility])Impaired Fasting GlucoseScreening for Colon CancerSubjectiveCHIEF COMPLAINT: Routine [...] disease) ([facility]) 02/03/2010- Coronary artery disease No UT, CHF. No heart cath.- Diverticulosis of colon (without mention of hemorrhage)- Essential hypertension, benign- Fibrocystic breast- Former smoker- Internal hemorrhoids without mention of complication- Leiomyoma of uterus, unspecified- Obstructive sleep apnea Mild. Not prescribed CPAP, only 2L nasal O2.PAST SURGICAL HISTORYProcedure Laterality Date- BREAST LUMPECTOMY HX Right 1997- COLONOSCOP W/ OR W/O [facility] SPEC 08/27/08 repeat due 2017- IMPACT [...] acidophilus (PROBIOTIC ORAL) Take by mouth. Taking Lhipwsbrkfeyvd-fsltswekl-dnut nter (TRELEGY ELLIPTA) 100-62.5-25 mcg dsdvInhale 1 [...] do nocturnal oximetry on 2 L. DME: [facility].Patient not taking: Reported on 09/05/2018 Not TakingCOMPOUNDED PRESCRIPTION Please perform nocturnal oximetry on 2 lpm O2.DX: Severe COPD, chronic hypoxemic respiratory failurePatient not taking: Reported on 09/05/2018 Not TakingNo medication comments found.ALLERGIESNo Known AllergiesREVIEW OF SYSTEMS:PAIN ASSESSMENT:General: No weight loss, malaise or fevers.Neuro: No history of TIA's, stroke, MARINE CARGO SPECIALIST tumor, impaired sensorium,hemiplegia, paraplegia or quadraplegia. No [...] requiring dialysis. Negative for dysuria, hematuria,urgency, or frequency.TICKET COLLECTOR OR USHER: Negative for abnormal vaginal bleeding, abnormal vaginal [...] recent labsMost recent EKGMost recent EchoAll in [facility] nt has the following medical conditionsHTN- RxCOPD- [...] 05, 2018 : 9:32 AM PAGER/CONTACT #: [facility] HOSP 08-27-2018 HOSP Patient:Linwood Lucero KMRN: Height:5' 4.5(1.638 m)Weight:256 lb 1.6 oz (116.166 kg)Outpatient Medications as of 09/10/18:Lactobacillus acidophilus (PROBIOTIC ORAL)bynsiegiozk-ohphrezfo-gs lanter (TRELEGY ELLIPTA) 100-62.5-25 mcg dsdvNYAMYC powdertriamterene-hydrochloro [...] bronchitis with chronic obstructive pulmonary disease (COPD) ([facility])[J44.0, J20.9]Impaired fasting glucose [R73.01]Screening for colon cancer [Z12.11]Allergies:No Known AllergiesDate Verified:09/10/18Lab ValuesNo results within the last 30 days for the following basenames: K,HCTProgress Notes ([facility]):Sridevi Dickerson RN 08/30/2018 9:50 AM Btcgcf34 year old female here for INACTIVATED INFLUENZA VACCINE.2669-8900 SeasonPatient is identified by name and date of : Yes [] CONTRAINDICATIONS color enhancedsectionAge less than 6 months? NoAllergy to eggs, chicken, chicken feathers, or chicken dander? NoAllergy to thimerosal (a preservative) or formaldehyde, gelatin? NoHistory of severe reaction to any vaccine component or a previous dose ofinfluenza vaccination? NoHistory of Guillain-Saint Mary Syndrome within 6 weeks after a previous [...] information sheet given? YesSee immunization activity in [facility] for details of immunizations adminsteredtoday.Patient age: [age] year old For The 3338-8899 Flu Season6-35 months old: Fluzone 0.25 ml [...] second dosein one months time.Previous VersionProgress Notes ([facility]):Teodoro Bower 08/27/2018 9:33 AM [id number] [place] GARCIA unless told otherwise. Dr Galvan, can you please reviewthis patients information . Thank you Teodoro Trinityirina Sathish 08/27/2018 2:59 PM Signedleft message for patient to call back so we can schedule her procedure in ahospital setting Teodoroliliana Reyesyevgeniy Sathish 08/27/2018 3:54 PM [id number] [place] Teodoro ManningRashadirina Manning 08/28/2018 1:22 PM [id number] [place] [facility] Vital Signs Date Time Vital Sign Value Performing Clinician Facility 07-30-2025 08:01-0400 Body height 162.[address] Phuc Martines DO Work Phone: [facility] 07-30-2025 08:01-0400 Body mass index (BMI) [Ratio] 41.5 kg/m2 Dr. Phuc Martines DO Work Phone: [facility] 07-30-2025 08:01-0400 Body weight 109.[address] Phuc Martines DO Work Phone: [facility] 07-30-2025 08:01-0400 Diastolic blood pressure 82 mm[Hg] Dr. Phuc Martines DO Work Phone: [facility] 07-30-2025 08:01-0400 Heart rate 55 /min Dr. Phuc Martines DO Work Phone: 5(470)700-683674 [place] [address] 07-30-2025 08:01-0400 Inhaled oxygen flow rate 3 L/min Dr. Phuc Martines DO Work Phone: 9(240)698-772874 [place] [address] 07-30-2025 08:01-0400 Respiratory rate 20 /min Dr. Phuc Martines DO Work Phone: 9(030)431-788974 [place] [address] 07-30-2025 08:01-0400 SaO2% (BldA) [Mass fraction] 91 % Dr. Phuc Martines DO Work Phone: 5(722)694-953374 [place] [address] 07-30-2025 08:01-0400 Systolic blood pressure 143 mm[Hg] Dr. Phuc Martines DO Work Phone: 5(630)249-772174 [place] [address] 06-24-2025 11:01-0400 Body height 162.[address] Phuc Martines DO Work Phone: 2(325)432-485574 [place] [address] 06-24-2025 11:01-0400 Body weight 115.[address] Phuc Martines DO Work Phone: 1(149)787-599574 [place] [address] 06-23-2025 08:03-0400 Body mass index (BMI) [Ratio] 43.7 kg/m2 Dr. Phuc Martines DO Work Phone: 2(859)416-003074 [place] [address] 06-08-2025 14:44-0400 Body height 162.[address] Phuc Martines DO Work Phone: 6(573)348-916774 [place] [address] 06-08-2025 14:44-0400 Body mass index (BMI) [Ratio] 43.7 kg/m2 Dr. Phuc Martines DO Work Phone: 9(750)387-285674 [place] [address] 06-08-2025 14:44-0400 Body weight 115.[address] Phuc Martines DO Work Phone: 6(956)030-153474 [place] [address] 06-08-2025 14:44-0400 Diastolic blood pressure 58 mm[Hg] Dr. Phuc Martines DO Work Phone: 6(730)766-519874 [place] [address] 06-08-2025 14:44-0400 Heart rate 66 /min Dr. Phuc Martines DO Work Phone: 5(250)971-870374 [place] [address] 06-08-2025 14:44-0400 Inhaled oxygen flow rate 3.5 L/min Dr. Phuc Martines DO Work Phone: 0(922)278-880074 [place] [address] 06-08-2025 14:44-0400 Respiratory rate 18 /min Dr. Phuc Martines DO Work Phone: 4(602)284-185774 [place] [address] 06-08-2025 14:44-0400 SaO2% (BldA) [Mass fraction] 91 % Dr. Phuc Martines DO Work Phone: 9(518)377-655174 [place] [address] 06-08-2025 14:44-0400 Systolic blood pressure 118 mm[Hg] Dr. Phuc Martines DO Work Phone: 2(181)467-178474 [place] [address] 05-17-2025 12:18-0400 Body temperature 98.3 [degF] Dr. Phuc Martines DO Work Phone: 2(180)119-401174 [place] [address] 05-17-2025 12:18-0400 Diastolic blood pressure 62 mm[Hg] Dr. Phuc Martines DO Work Phone: 3(588)886-627174 [place] [address] 05-17-2025 12:18-0400 Heart rate 68 /min Dr. Phuc Martines DO Work Phone: 3(200)777-211274 [place] [address] 05-17-2025 12:18-0400 Inhaled oxygen flow rate 6 L/min Dr. Phuc Martines DO Work Phone: 0(485)749-901174 [place] [address] 05-17-2025 12:18-0400 Respiratory rate 18 /min Dr. Phuc Martines DO Work Phone: 6(641)613-059574 [place] [address] 05-17-2025 12:18-0400 SaO2% (BldA) [Mass fraction] 94 % Dr. Phuc Martines DO Work Phone: 4(223)402-969074 [place] [address] 05-17-2025 12:18-0400 Systolic blood pressure 122 mm[Hg] Dr. Phuc Martines DO Work Phone: 5(211)199-013374 [place] [address] 05-17-2025 02:41-0400 Inhaled oxygen concentration 35 % Dr. Phuc Martines DO Work Phone: 0(627)562-930074 [place] [address] 05-14-2025 10:31-0400 Body height 162.[address] Phuc Martines DO Work Phone: 2(831)990-126974 [place] [address] 05-14-2025 10:31-0400 Body weight 118.[address] Phuc Martines DO Work Phone: 7(043)913-113674 [place] [address] 05-13-2025 19:53-0400 Body mass index (BMI) [Ratio] 45 kg/m2 Dr. Phuc Martines DO Work Phone: 2(691)491-456574 [place] [address] 05-13-2025 19:00-0400 Diastolic blood pressure 64 mm[Hg] Dr. Phuc Martines DO Work Phone: 3(516)570-577474 [place] [address] 05-13-2025 19:00-0400 Heart rate 97 /min Dr. Phuc Martines DO Work Phone: 4(154)911-552874 [place] [address] 05-13-2025 19:00-0400 Inhaled oxygen flow rate 10 L/min Dr. Phuc Martines DO Work Phone: 1(215)460-051574 [place] [address] 05-13-2025 19:00-0400 Respiratory rate 19 /min Dr. Phuc Martines DO Work Phone: 3(092)261-602974 [place] [address] 05-13-2025 19:00-0400 SaO2% (BldA) [Mass fraction] 91 % Dr. Phuc Martines DO Work Phone: 5(797)785-467874 [place] [address] 05-13-2025 19:00-0400 Systolic blood pressure 128 mm[Hg] Dr. Phuc Martines DO Work Phone: 5(916)580-118974 [place] [address] 05-13-2025 18:53-0400 Body temperature 98.2 [degF] Dr. Phuc Martines DO Work Phone: 0(948)670-206474 [place] [address] 05-13-2025 16:00-0400 Diastolic blood pressure 62 mm[Hg] Dr. Phuc Martines DO Work Phone: 0(859)508-513390 [place] [address] 05-13-2025 16:00-0400 Heart rate 109 /min Dr. Phuc Martines DO Work Phone: 0(573)392-205774 [place] [address] 05-13-2025 16:00-0400 Respiratory rate 27 /min Dr. Phuc Martines DO Work Phone: 3(840)398-911374 [place] [address] 05-13-2025 16:00-0400 SaO2% (BldA) [Mass fraction] 90 % Dr. Phuc Martines DO Work Phone: 1(140)089-141374 [place] [address] 05-13-2025 16:00-0400 Systolic blood pressure 130 mm[Hg] Dr. Phuc Martines DO Work Phone: 2(893)109-329674 [place] [address] 05-13-2025 13:56-0400 Inhaled oxygen concentration 40 % Dr. Phuc Martines DO Work Phone: 2(788)650-909774 [place] [address] 05-13-2025 13:10-0400 Body height 162.[address] Phuc Martines DO Work Phone: 1(320)872-369874 [place] [address] 05-13-2025 13:10-0400 Body mass index (BMI) [Ratio] 44.8 kg/m2 Dr. Phuc Martines DO Work Phone: 0(551)823-536774 [place] [address] 05-13-2025 13:10-0400 Body temperature 98.7 [degF] Dr. Phuc Martines DO Work Phone: 7(953)556-719274 [place] [address] 05-13-2025 13:10-0400 Body weight 118.[address] Phuc Martines DO Work Phone: 4(010)321-870974 [place] [address] 05-13-2025 13:10-0400 Inhaled oxygen flow rate 3 L/min Dr. Phuc Martines DO Work Phone: 7(972)239-932274 [place] [address] 05-12-2025 09:34-0400 Body height 162.6 cm Jaden Newton MD Work Phone: [facility] 05-12-2025 09:34-0400 Body mass index (BMI) [Ratio] 44.63 kg/m2 Jaden Newton MD Work Phone: [facility] 05-12-2025 09:34-0400 Body weight 117.94 kg Jaden Newton MD Work Phone: [facility] 05-12-2025 09:34-0400 Diastolic blood pressure 70 mm[Hg] Jaden Newton MD Work Phone: [facility] 05-12-2025 09:34-0400 Heart rate 65 /min Jaden Newton MD Work Phone: [facility] 05-12-2025 09:34-0400 SaO2% (BldA) [Mass fraction] 78 % Jaden Newton MD Work Phone: [facility] Comment on above: On oxygen 05-12-2025 09:34-0400 Systolic blood pressure 110 mm[Hg] Jaden Newton MD Work Phone: [facility] 05-11-2025 14:32-0400 SaO2% (BldA) [Mass fraction] 88 % Sofi Garcia PA-C Work Phone: [facility] 05-11-2025 11:29-0400 Body mass index (BMI) [Ratio] 44.63 kg/m2 Sofi Garcia PA-C Work Phone: [facility] 05-11-2025 11:29-0400 Body temperature 99.7 [degF] Sofi Garcia PA-C Work Phone: [facility] 05-11-2025 11:29-0400 Body weight 117.94 kg Sofi Garcia PA-C Work Phone: [facility] 05-11-2025 11:29-0400 Diastolic blood pressure 70 mm[Hg] Sofi Garcia PA-C Work Phone: [facility] 05-11-2025 11:29-0400 Heart rate 76 /min Sofi Garcia PA-C Work Phone: [facility] 05-11-2025 11:29-0400 Respiratory rate 20 /min Sofi Garcia PA-C Work Phone: 9(646)894-852362 [place] [address] 05-11-2025 11:29-0400 Systolic blood pressure 110 mm[Hg] Sofi Garcia PA-C Work Phone: 9(695)175-851362 [place] [address] 05-07-2025 13:37-0400 Body height 162.[address] Phuc Martines DO Work Phone: 4(293)761-870474 [place] [address] 05-07-2025 13:37-0400 Body mass index (BMI) [Ratio] 44.4 kg/m2 Dr. Phuc Martines DO Work Phone: 2(028)819-001274 [place] [address] 05-07-2025 13:37-0400 Body weight 117.[address] Phuc Martines DO Work Phone: 6(645)402-261674 [place] [address] 05-07-2025 13:37-0400 Diastolic blood pressure 65 mm[Hg] Dr. Phuc Martines DO Work Phone: 4(446)853-121074 [place] [address] 05-07-2025 13:37-0400 Heart rate 75 /min Dr. Phuc Martines DO Work Phone: 8(632)406-300774 [place] [address] 05-07-2025 13:37-0400 Inhaled oxygen flow rate 2 L/min Dr. Phuc Martines DO Work Phone: 6(200)111-750874 [place] [address] 05-07-2025 13:37-0400 Respiratory rate 20 /min Dr. Phuc Martines DO Work Phone: 6(448)588-635374 [place] [address] 05-07-2025 13:37-0400 SaO2% (BldA) [Mass fraction] 82 % Dr. Phuc Martines DO Work Phone: 6(957)147-460674 [place] [address] 05-07-2025 13:37-0400 Systolic blood pressure 101 mm[Hg] Dr. Phuc Martines DO Work Phone: 3(258)431-903274 [place] [address] 04-27-2025 14:20-0400 Heart rate 90 /min Dr. Phuc Martines DO Work Phone: 1(020)313-514274 [place] [address] 04-27-2025 14:20-0400 Respiratory rate 18 /min Dr. Phuc Martines DO Work Phone: 1(542)228-930490 [place] [address] 04-27-2025 11:43-0400 Body temperature 98.6 [degF] Dr. Phuc Martines DO Work Phone: 9(783)588-839474 [place] [address] 04-27-2025 11:43-0400 Diastolic blood pressure 53 mm[Hg] Dr. Phuc Martines DO Work Phone: 3(229)876-644074 [place] [address] 04-27-2025 11:43-0400 Inhaled oxygen flow rate 5 L/min Dr. Phuc Martines DO Work Phone: 1(818)624-407074 [place] [address] 04-27-2025 11:43-0400 SaO2% (BldA) [Mass fraction] 95 % Dr. Phuc Martines DO Work Phone: 1(129)731-946874 [place] [address] 04-27-2025 11:43-0400 Systolic blood pressure 110 mm[Hg] Dr. Phuc Martines DO Work Phone: 8(369)242-112274 [place] [address] 04-27-2025 04:35-0400 Body mass index (BMI) [Ratio] 44.5 kg/m2 Dr. Phuc Martines DO Work Phone: 3(106)635-885174 [place] [address] 04-27-2025 04:35-0400 Body weight 117.[address] Phuc Martines DO Work Phone: 0(401)627-991674 [place] [address] 04-23-2025 22:47-0400 Body height 162.[address] Phuc Martines DO Work Phone: 1(785)549-246074 [place] [address] 04-23-2025 22:02-0400 Diastolic blood pressure 74 mm[Hg] Dr. Phuc Martines DO Work Phone: 6(030)861-890474 [place] [address] 04-23-2025 22:02-0400 Heart rate 127 /min Dr. Phuc Martines DO Work Phone: 9(039)585-664674 [place] [address] 04-23-2025 22:02-0400 Respiratory rate 24 /min Dr. Phuc Martines DO Work Phone: 1(261)522-736274 [place] [address] 04-23-2025 22:02-0400 SaO2% (BldA) [Mass fraction] 94 % Dr. Phuc Martines DO Work Phone: [facility] 04-23-2025 22:02-0400 Systolic blood pressure 140 mm[Hg] Dr. Phuc Martines DO Work Phone: 5(904)865-808190 [place] [address] 04-23-2025 21:58-0400 Body temperature 98.6 [degF] Dr. Phuc Martines DO Work Phone: 0(173)593-498290 [place] [address] 04-23-2025 21:00-0400 Inhaled oxygen flow rate 3.5 L/min Dr. Phuc Martines DO Work Phone: 2(974)724-653974 [place] [address] 04-23-2025 16:18-0400 Body height 162.[address] Phuc Martines DO Work Phone: 1(924)825-566274 [place] [address] 04-23-2025 16:18-0400 Body mass index (BMI) [Ratio] 43.7 kg/m2 Dr. Phuc Martines DO Work Phone: 8(432)625-223990 [place] [address] 04-23-2025 16:18-0400 Body weight 115.[address] Phuc Martines DO Work Phone: 0(630)785-755590 [place] [address] 04-23-2025 14:59-0400 Body mass index (BMI) [Ratio] 43.98 kg/m2 Tyra Carson APRN.PRACTICE NURSE Work Phone: [facility] 04-23-2025 14:59-0400 Body weight 116.21 kg Tyra Meena CHILD CARE CENTER ASSISTANT DIRECTOR.PRACTICE NURSE Work Phone: [facility] 04-23-2025 14:59-0400 Diastolic blood pressure 62 mm[Hg] Tyra Meena CHILD CARE CENTER ASSISTANT DIRECTOR.PRACTICE NURSE Work Phone: [facility] 04-23-2025 14:59-0400 Heart rate 129 /min Tyra Meena CHILD CARE CENTER ASSISTANT DIRECTOR.PRACTICE NURSE Work Phone: [facility] 04-23-2025 14:59-0400 Respiratory rate 20 /min Tyra Meena CHILD CARE CENTER ASSISTANT DIRECTOR.PRACTICE NURSE Work Phone: [facility] 04-23-2025 14:59-0400 SaO2% (BldA) [Mass fraction] 92 % Tyra Carson APRN.PRACTICE NURSE Work Phone: [facility] 04-23-2025 14:59-0400 Systolic blood pressure 122 mm[Hg] Tyra Carson APRN.PRACTICE NURSE Work Phone: [facility] 04-20-2025 09:48-0400 Body mass index (BMI) [Ratio] 44.27 kg/m2 Damon Eugene APRN.PRACTICE NURSE Work Phone: [facility] 04-20-2025 09:48-0400 Body temperature 98.4 [degF] Damon Eugene APRN.PRACTICE NURSE Work Phone: [facility] 04-20-2025 09:48-0400 Body weight 117 kg Damon Eugene APRN.PRACTICE NURSE Work Phone: [facility] 04-20-2025 09:48-0400 Diastolic blood pressure 80 mm[Hg] Damon Eugene APRN.PRACTICE NURSE Work Phone: [facility] 04-20-2025 09:48-0400 Heart rate 94 /min Damon Eugene APRN.PRACTICE NURSE Work Phone: [facility] 04-20-2025 09:48-0400 Respiratory rate 18 /min Damon Eugene APRN.PRACTICE NURSE Work Phone: [facility] 04-20-2025 09:48-0400 SaO2% (BldA) [Mass fraction] 91 % Damon Eugene APRN.PRACTICE NURSE Work Phone: [facility] 04-20-2025 09:48-0400 Systolic blood pressure 132 mm[Hg] Damon Eugene APRN.PRACTICE NURSE Work Phone: [facility] 03-31-2025 12:52-0400 Body mass index (BMI) [Ratio] 45.08 kg/m2 Janette Damon APRN.PRACTICE NURSE Work Phone: [facility] 03-31-2025 12:52-0400 Body weight 119.11 kg Janette Podlogar CHILD CARE CENTER ASSISTANT DIRECTOR.PRACTICE NURSE Work Phone: [facility] 03-31-2025 12:52-0400 Diastolic blood pressure 82 mm[Hg] Janette Podlogar CHILD CARE CENTER ASSISTANT DIRECTOR.PRACTICE NURSE Work Phone: [facility] 03-31-2025 12:52-0400 Heart rate 91 /min Janette Podlogar CHILD CARE CENTER ASSISTANT DIRECTOR.PRACTICE NURSE Work Phone: [facility] 03-31-2025 12:52-0400 Respiratory rate 18 /min Janette Podlogar CHILD CARE CENTER ASSISTANT DIRECTOR.PRACTICE NURSE Work Phone: [facility] 03-31-2025 12:52-0400 SaO2% (BldA) [Mass fraction] 92 % Janette Podlogar CHILD CARE CENTER ASSISTANT DIRECTOR.PRACTICE NURSE Work Phone: [facility] Comment on above: 3LPM 03-31-2025 12:52-0400 Systolic blood pressure 124 mm[Hg] Janette Podlogar CHILD CARE CENTER ASSISTANT DIRECTOR.PRACTICE NURSE Work Phone: [facility] 03-30-2025 11:28-0400 Body height 162.[address] Phuc Martines DO Work Phone: [facility] 03-30-2025 11:28-0400 Body mass index (BMI) [Ratio] 45.1 kg/m2 Dr. Phuc Martines DO Work Phone: [facility] 03-30-2025 11:28-0400 Body weight 119.[address] Phuc Martines DO Work Phone: [facility] 03-30-2025 11:28-0400 Diastolic blood pressure 80 mm[Hg] Dr. Phuc Martines DO Work Phone: [facility] 03-30-2025 11:28-0400 Heart rate 69 /min Dr. Phuc Martines DO Work Phone: [facility] 03-30-2025 11:28-0400 Inhaled oxygen flow rate 2 L/min Dr. Phuc Martines DO Work Phone: [facility] 03-30-2025 11:28-0400 Respiratory rate 18 /min Dr. Phuc Martines DO Work Phone: [facility] 03-30-2025 11:28-0400 SaO2% (BldA) [Mass fraction] 86 % Dr. Phuc Martines DO Work Phone: [facility] 03-30-2025 11:28-0400 Systolic blood pressure 122 mm[Hg] Dr. Phuc Martines DO Work Phone: [facility] 03-01-2025 12:31-0400 Body mass index (BMI) [Ratio] 45.01 kg/m2 Janette Podlogar CHILD CARE CENTER ASSISTANT DIRECTOR.PRACTICE NURSE Work Phone: [facility] 03-01-2025 12:31-0400 Body weight 118.93 kg Janette Podlogar CHILD CARE CENTER ASSISTANT DIRECTOR.PRACTICE NURSE Work Phone: [facility] 03-01-2025 12:31-0400 Diastolic blood pressure 70 mm[Hg] Janette Podlogar CHILD CARE CENTER ASSISTANT DIRECTOR.PRACTICE NURSE Work Phone: [facility] 03-01-2025 12:31-0400 Heart rate 76 /min Janette Podlogar CHILD CARE CENTER ASSISTANT DIRECTOR.PRACTICE NURSE Work Phone: [facility] 03-01-2025 12:31-0400 Respiratory rate 18 /min Janette Podlogar CHILD CARE CENTER ASSISTANT DIRECTOR.PRACTICE NURSE Work Phone: [facility] 03-01-2025 12:31-0400 SaO2% (BldA) [Mass fraction] 90 % Janette Podlogar CHILD CARE CENTER ASSISTANT DIRECTOR.PRACTICE NURSE Work Phone: [facility] Comment on above: 3LPM 03-01-2025 12:31-0400 Systolic blood pressure 116 mm[Hg] Janette Podlogar CHILD CARE CENTER ASSISTANT DIRECTOR.PRACTICE NURSE Work Phone: [facility] 02-23-2025 13:26-0400 Body temperature 98.4 [degF] Dr. Phuc Martines DO Work Phone: [facility] 02-23-2025 13:26-0400 Diastolic blood pressure 83 mm[Hg] Dr. Phuc Martines DO Work Phone: [facility] 02-23-2025 13:26-0400 Heart rate 104 /min Dr. Phuc Martines DO Work Phone: [facility] 02-23-2025 13:26-0400 Inhaled oxygen flow rate 3.5 L/min Dr. Phuc Martines DO Work Phone: [facility] 02-23-2025 13:26-0400 Respiratory rate 18 /min Dr. Phuc Martines DO Work Phone: [facility] 02-23-2025 13:26-0400 SaO2% (BldA) [Mass fraction] 97 % Dr. Phuc Martines DO Work Phone: [facility] 02-23-2025 13:26-0400 Systolic blood pressure 110 mm[Hg] Dr. Phuc Martines DO Work Phone: 2(567)165-401090 [place] [address] 02-23-2025 03:57-0400 Body mass index (BMI) [Ratio] 44.6 kg/m2 Dr. Phuc Martines DO Work Phone: [facility] 02-23-2025 03:57-0400 Body weight 117.[address] Phuc Martines DO Work Phone: [facility] 02-22-2025 10:02-0400 Body height 162.[address] Phuc Martines DO Work Phone: [facility] 01-25-2025 11:08-0400 Body height 162.6 cm Maricruz Camp APRN.PRACTICE NURSE Work Phone: [facility] 01-25-2025 11:08-0400 Body mass index (BMI) [Ratio] 45.56 kg/m2 Maricruz Camp APRN.PRACTICE NURSE Work Phone: [facility] 01-25-2025 11:08-0400 Body weight 120.39 kg Maricruz Camp APRN.PRACTICE NURSE Work Phone: [facility] 01-25-2025 11:08-0400 Diastolic blood pressure 76 mm[Hg] Maricruz Camp CHILD CARE CENTER ASSISTANT DIRECTOR.PRACTICE NURSE Work Phone: [facility] 01-25-2025 11:08-0400 Heart rate 88 /min Maricruz Camp CHILD CARE CENTER ASSISTANT DIRECTOR.PRACTICE NURSE Work Phone: [facility] 01-25-2025 11:08-0400 SaO2% (BldA) [Mass fraction] 92 % Maricruz Camp CHILD CARE CENTER ASSISTANT DIRECTOR.PRACTICE NURSE Work Phone: [facility] 01-25-2025 11:08-0400 Systolic blood pressure 131 mm[Hg] Maricruz Camp CHILD CARE CENTER ASSISTANT DIRECTOR.PRACTICE NURSE Work Phone: [facility] 01-20-2025 14:36-0400 Body mass index (BMI) [Ratio] 45.32 kg/m2 Phuc Martines DO Work Phone: [facility] 01-20-2025 14:36-0400 Body temperature 97 [degF] Phuc Martines DO Work Phone: [facility] 01-20-2025 14:36-0400 Body weight 119.75 kg Phuc Martines DO Work Phone: [facility] 01-20-2025 14:36-0400 Diastolic blood pressure 70 mm[Hg] Phuc Martines DO Work Phone: [facility] 01-20-2025 14:36-0400 Heart rate 72 /min Phuc Martines DO Work Phone: [facility] 01-20-2025 14:36-0400 Respiratory rate 20 /min Phuc Martines DO Work Phone: [facility] 01-20-2025 14:36-0400 Systolic blood pressure 138 mm[Hg] Phuc Martines DO Work Phone: [facility] 12-25-2024 11:22-0500 Body mass index (BMI) [Ratio] 45.08 kg/m2 Rajendra Goodman CHILD CARE CENTER ASSISTANT DIRECTOR.PRACTICE NURSE Work Phone: [facility] 02-28-2025 11:22-0500 Body weight 119.11 kg Rajendra Click CHILD CARE CENTER ASSISTANT DIRECTOR.PRACTICE NURSE Work Phone: [facility] 12-25-2024 11:22-0500 Diastolic blood pressure 64 mm[Hg] Rajendra Click CHILD CARE CENTER ASSISTANT DIRECTOR.PRACTICE NURSE Work Phone: [facility] 12-25-2024 11:22-0500 Heart rate 92 /min Rajendra Click CHILD CARE CENTER ASSISTANT DIRECTOR.PRACTICE NURSE Work Phone: [facility] 12-25-2024 11:22-0500 Respiratory rate 20 /min Rajendra Click CHILD CARE CENTER ASSISTANT DIRECTOR.PRACTICE NURSE Work Phone: [facility] 12-25-2024 11:22-0500 SaO2% (BldA) [Mass fraction] 91 % Rajendra Click CHILD CARE CENTER ASSISTANT DIRECTOR.PRACTICE NURSE Work Phone: [facility] Comment on above: 2 L [place] 12-25-2024 11:22-0500 Systolic blood pressure 134 mm[Hg] Rajendra Click CHILD CARE CENTER ASSISTANT DIRECTOR.PRACTICE NURSE Work Phone: [facility] 10-19-2024 10:15-0500 Body height 162.6 cm Maricruz [place] CHILD CARE CENTER ASSISTANT DIRECTOR.PRACTICE NURSE Work Phone: [facility] 10-19-2024 10:15-0500 Body mass index (BMI) [Ratio] 44.56 kg/m2 Maricruz [place] CHILD CARE CENTER ASSISTANT DIRECTOR.PRACTICE NURSE Work Phone: [facility] 10-19-2024 10:15-0500 Body weight 117.75 kg Maricruz [place] CHILD CARE CENTER ASSISTANT DIRECTOR.PRACTICE NURSE Work Phone: [facility] 10-19-2024 10:15-0500 Diastolic blood pressure 70 mm[Hg] Maricruz [place] CHILD CARE CENTER ASSISTANT DIRECTOR.PRACTICE NURSE Work Phone: [facility] 10-19-2024 10:15-0500 Heart rate 101 /min Maricruz [place] CHILD CARE CENTER ASSISTANT DIRECTOR.PRACTICE NURSE Work Phone: [facility] 10-19-2024 10:15-0500 SaO2% (BldA) [Mass fraction] 90 % Maricruz [place] CHILD CARE CENTER ASSISTANT DIRECTOR.PRACTICE NURSE Work Phone: [facility] Comment on above: 3 L 10-19-2024 10:15-0500 Systolic blood pressure 130 mm[Hg] Maricruz Camp APRN.PRACTICE NURSE Work Phone: [facility] 06-26-2024 11:29-0400 Body mass index (BMI) [Ratio] 43.6 kg/m2 Diana Gonzalez MD Work Phone: [facility] 06-26-2024 11:29-0400 Body weight 115.21 kg Diana Gonzalez MD Work Phone: [facility] 06-26-2024 11:29-0400 Diastolic blood pressure 78 mm[Hg] Diana Gonzalez MD Work Phone: [facility] 06-26-2024 11:29-0400 Heart rate 80 /min Diana Gonzalez MD Work Phone: [facility] 06-26-2024 11:29-0400 Respiratory rate 15 /min Diana Gonzalez MD Work Phone: [facility] 06-26-2024 11:29-0400 SaO2% (BldA) [Mass fraction] 91 % Diana Gonzalez MD Work Phone: [facility] 06-26-2024 11:29-0400 Systolic blood pressure 136 mm[Hg] Diana Gonzalez MD Work Phone: [facility] 04-26-2024 10:59-0400 Body mass index (BMI) [Ratio] 44.65 kg/m2 Damon Eugene APRN.PRACTICE NURSE Work Phone: [facility] 04-26-2024 10:59-0400 Body temperature 98.6 [degF] Damon Eugene APRN.PRACTICE NURSE Work Phone: [facility] 04-26-2024 10:59-0400 Body weight 118 kg Damon Eugene APRN.PRACTICE NURSE Work Phone: [facility] 04-26-2024 10:59-0400 Diastolic blood pressure 68 mm[Hg] Damon Eugene APRN.PRACTICE NURSE Work Phone: [facility] 04-26-2024 10:59-0400 Heart rate 68 /min Damon Eugene APRN.PRACTICE NURSE Work Phone: [facility] 04-26-2024 10:59-0400 Respiratory rate 20 /min Damon Eugene APRN.PRACTICE NURSE Work Phone: [facility] 04-26-2024 10:59-0400 SaO2% (BldA) [Mass fraction] 98 % Damon Eugene APRN.PRACTICE NURSE Work Phone: [facility] 04-26-2024 10:59-0400 Systolic blood pressure 144 mm[Hg] Damon Eugene APRN.PRACTICE NURSE Work Phone: [facility] 03-13-2024 12:59-0400 Body mass index (BMI) [Ratio] 44.29 kg/m2 Phuc Martines DO Work Phone: [facility] 03-13-2024 12:59-0400 Body temperature 97.59 [degF] Phuc Martines DO Work Phone: [facility] 03-13-2024 12:59-0400 Body weight 117.03 kg Phuc Martines DO Work Phone: [facility] 03-13-2024 12:59-0400 Diastolic blood pressure 70 mm[Hg] Phuc Martines DO Work Phone: [facility] 03-13-2024 12:59-0400 Heart rate 102 /min Phuc Martines DO Work Phone: [facility] 03-13-2024 12:59-0400 Respiratory rate 28 /min Phuc Martines DO Work Phone: [facility] 03-13-2024 12:59-0400 SaO2% (BldA) [Mass fraction] 91 % Phuc Martines DO Work Phone: [facility] 03-13-2024 12:59-0400 Systolic blood pressure 158 mm[Hg] Phuc Martines DO Work Phone: [facility] 01-29-2024 13:30-0400 Body temperature 97.9 [degF] Srikanth Sean CHILD CARE CENTER ASSISTANT DIRECTOR.PRACTICE NURSE Work Phone: [facility] 01-29-2024 13:30-0400 Body weight 118.4 kg Srikanth Estrada CHILD CARE CENTER ASSISTANT DIRECTOR.PRACTICE NURSE Work Phone: [facility] 01-29-2024 13:30-0400 Diastolic blood pressure 68 mm[Hg] Srikanth Sean CHILD CARE CENTER ASSISTANT DIRECTOR.PRACTICE NURSE Work Phone: [facility] 01-29-2024 13:30-0400 Heart rate 94 /min Srikanth Estrada CHILD CARE CENTER ASSISTANT DIRECTOR.PRACTICE NURSE Work Phone: [facility] 01-29-2024 13:30-0400 Respiratory rate 18 /min Srkianth Estrada CHILD CARE CENTER ASSISTANT DIRECTOR.PRACTICE NURSE Work Phone: [facility] 01-29-2024 13:30-0400 SaO2% (BldA) [Mass fraction] 93 % Srikanth Estrada CHILD CARE CENTER ASSISTANT DIRECTOR.PRACTICE NURSE Work Phone: [facility] 01-29-2024 13:30-0400 Systolic blood pressure 112 mm[Hg] Srikanth Estrada CHILD CARE CENTER ASSISTANT DIRECTOR.PRACTICE NURSE Work Phone: [facility] 08-14-2023 10:190400 Body temperature 97 [degF] Phuc Martines DO Work Phone: [facility] 08-14-2023 10:190400 Body weight 120.2 kg Phuc Martines DO Work Phone: [facility] 08-14-2023 10:19-0400 Diastolic blood pressure 70 mm[Hg] Phuc Martines DO Work Phone: [facility] 08-14-2023 10:19-0400 Heart rate 88 /min Phuc Martines DO Work Phone: [facility] 08-14-2023 10:19-0400 Respiratory rate 20 /min Phuc Martines DO Work Phone: [facility] 08-14-2023 10:19-0400 Systolic blood pressure 120 mm[Hg] Puhc Martines DO Work Phone: [facility] 06-13-2023 12:58-0400 Body weight 120.66 kg Pulm Wstr Work Phone: [facility] 06-13-2023 12:58-0400 Heart rate 102 /min Pulm Wstr Work Phone: [facility] 06-13-2023 12:58-0400 Respiratory rate 16 /min Pulm Wstr Work Phone: [facility] 06-13-2023 12:58-0400 SaO2% (BldA) [Mass fraction] 94 % Pulm Wstr Work Phone: [facility] 06-13-2023 12:53-0400 Diastolic blood pressure 86 mm[Hg] Hodan Mara PA-C Work Phone: [facility] 06-13-2023 12:53-0400 SaO2% (BldA) [Mass fraction] 80 % Hodan Mara PA-C Work Phone: [facility] 06-13-2023 12:53-0400 Systolic blood pressure 144 mm[Hg] Hodan Mara PA-C Work Phone: [facility] 09-28-2022 12:12-0500 Body temperature 99 [degF] Pratibha Fernando CHILD CARE CENTER ASSISTANT DIRECTOR.PRACTICE NURSE Work Phone: [facility] 09-28-2022 12:12-0500 Body weight 116.3 kg Pratibha Fernando CHILD CARE CENTER ASSISTANT DIRECTOR.PRACTICE NURSE Work Phone: [facility] 09-28-2022 12:12-0500 Diastolic blood pressure 94 mm[Hg] Pratibha Fernando CHILD CARE CENTER ASSISTANT DIRECTOR.PRACTICE NURSE Work Phone: [facility] 09-28-2022 12:12-0500 Heart rate 99 /min Pratibha Fernando CHILD CARE CENTER ASSISTANT DIRECTOR.PRACTICE NURSE Work Phone: [facility] 09-28-2022 12:12-0500 Respiratory rate 20 /min Pratibha Fernando CHILD CARE CENTER ASSISTANT DIRECTOR.PRACTICE NURSE Work Phone: [facility] 09-28-2022 12:12-0500 SaO2% (BldA) [Mass fraction] 94 % Pratibha King CHILD CARE CENTER ASSISTANT DIRECTOR.PRACTICE NURSE Work Phone: [facility] 09-28-2022 12:12-0500 Systolic blood pressure 142 mm[Hg] Pratibha King CHILD CARE CENTER ASSISTANT DIRECTOR.PRACTICE NURSE Work Phone: [facility] 08-01-2022 10:17-0400 Body temperature 98.4 [degF] Phuc Martines DO Work Phone: [facility] 08-01-2022 10:17-0400 Body weight 117.48 kg Phuc Martines DO Work Phone: [facility] 08-01-2022 10:17-0400 Diastolic blood pressure 60 mm[Hg] Phuc Martines DO Work Phone: [facility] 08-01-2022 10:17-0400 Heart rate 88 /min Phuc Martines DO Work Phone: [facility] 08-01-2022 10:17-0400 Respiratory rate 24 /min Phuc Martines DO Work Phone: [facility] 08-01-2022 10:17-0400 SaO2% (BldA) [Mass fraction] 88 % Phuc Martines DO Work Phone: [facility] 08-01-2022 10:17-0400 Systolic blood pressure 136 mm[Hg] Phuc Martines DO Work Phone: [facility] 03-16-2022 09:33-0400 Body height 164.5 cm Respiratory Wstr Work Phone: [facility] 03-16-2022 09:33-0400 Body weight 114.76 kg Respiratory Wstr Work Phone: [facility] 03-16-2022 09:33-0400 Heart rate 93 /min Respiratory Wstr Work Phone: [facility] 03-16-2022 09:33-0400 Respiratory rate 12 /min Respiratory Wstr Work Phone: [facility] 03-16-2022 09:33-0400 SaO2% (BldA) [Mass fraction] 94 % Respiratory Wstr Work Phone: [facility] 03-16-2022 09:31-0400 Body weight 114.76 kg Hodan Mara PA-C Work Phone: [facility] 03-16-2022 09:31-0400 Diastolic blood pressure 86 mm[Hg] Hodan Mara PA-C Work Phone: [facility] 03-16-2022 09:31-0400 Heart rate 93 /min Hodan Mara PA-C Work Phone: [facility] 03-16-2022 09:31-0400 Respiratory rate 12 /min Hodan Mara PA-C Work Phone: [facility] 03-16-2022 09:31-0400 SaO2% (BldA) [Mass fraction] 96 % Hodan Mara PA-C Work Phone: [facility] 03-16-2022 09:31-0400 Systolic blood pressure 138 mm[Hg] Hodan Mara PA-C Work Phone: [facility] 02-09-2022 12:49-0400 Body weight 114.31 kg Hodan Mara PA-C Work Phone: [facility] 02-09-2022 12:49-0400 Diastolic blood pressure 88 mm[Hg] Hodan Mara PA-C Work Phone: [facility] 02-09-2022 12:49-0400 Heart rate 102 /min Hodan Mara PA-C Work Phone: [facility] 02-09-2022 12:49-0400 Respiratory rate 20 /min Hodan Mara PA-C Work Phone: [facility] 02-09-2022 12:49-0400 SaO2% (BldA) [Mass fraction] 86 % Hodan Mara PA-C Work Phone: [facility] 02-09-2022 12:49-0400 Systolic blood pressure 140 mm[Hg] Hodan Mara PA-C Work Phone: [facility] 01-30-2022 08:59-0400 Body temperature 97.59 [degF] Phuc Martines DO Work Phone: [facility] 01-30-2022 08:59-0400 Body weight 115.21 kg Phuc Martines DO Work Phone: [facility] 01-30-2022 08:59-0400 Diastolic blood pressure 74 mm[Hg] Phuc Martines DO Work Phone: [facility] 01-30-2022 08:59-0400 Heart rate 104 /min Phuc Martines DO Work Phone: [facility] 01-30-2022 08:59-0400 Respiratory rate 20 /min Phuc Martines DO Work Phone: [facility] 01-30-2022 08:59-0400 SaO2% (BldA) [Mass fraction] 88 % Phuc Martines DO Work Phone: [facility] 01-30-2022 08:59-0400 Systolic blood pressure 150 mm[Hg] Phuc Martines DO Work Phone: [facility] Encounters Encounter Date Encounter Type Care Provider Facility Start: 08-19-2025 ambulatory Irina LYNN Facility:[facility] Start: 08-10-2025 End: 08-10-2025 ambulatory PHUC MARTINES Facility:[facility] Start: 08-04-2025 End: 08-04-2025 ambulatory PHUC L MARTINES Facility:[facility] Start: 07-30-2025 End: 07-30-2025 Patient encounter procedure Irina LYNN -[facility] Work Phone: Start: 07-30-2025 End: 07-30-[address] Phuc Martines DO Work Phone: -[facility] Start: 07-29-2025 End: 07-29-2025 ambulatory PHUC MARTINES Facility:[facility] Start: 07-26-2025 ambulatory PHUC MARTINES Facil ity:[facility] Start: 07-23-2025 End: 07-23-2025 ambulatory PHUC MARTINES Facility:[facility] Start: 07-01-2025 End: 07-01-[address] Reza Elena MD -[facility] Work Phone: Start: 07-01-2025 End: 07-01-[address] Phuc Martines DO Work Phone: -[facility] Start: 06-24-2025 ambulatory Reza Elena Facility :[facility] Start: 06-24-2025 Non-patient / Non-visit Dr. Yonathan juarez DO -[facility] Start: 06-24-2025 End: 06-24-2025 Admission to same day surgery center Dr. Reza Elena MD -Operations Team Leader/Special Procedures Work Phone: Start: 06-24-2025 End: 06-24-[address] Phuc Martines DO Work Phone: -Operations Team Leader/Special Procedures Start: 06-21-2025 End: 06-21-2025 ambulatory Anne Marie Gonzalez MA Work Phone: Internal Medicine Comment on above: SNF Discharge Initia l Outreach (Week 1) for Post Acute Care Start: 06-21-2025 End: 06-21-2025 Telephone encounter Rajendra Goodman CHILD CARE CENTER ASSISTANT DIRECTOR.PRACTICE NURSE Work Phone: Pulmonary Medicine Start: 06-15-2025 End: 06-15-2025 Telephone encounter Rajendra Goodman CHILD CARE CENTER ASSISTANT DIRECTOR.PRACTICE NURSE Work Phone: Pulmonary Medicine Comment on above: Orders (NIV) Start: 06-15-2025 End: 06-15-2025 ambulatory PHUC MARTINEZ [facility] Start: 06-14-2025 End: 06-14-2025 Refill Phuc Martines DO Work Phone: [facility] Comment on above: Refill Request Results Start: 06-12-2025 End: 06-14-2025 ambulatory Phuc Martines DO Work Phone: [facility] Comment on above: Furosemide/Lasix Start: 06-11-2025 End: 06-16-2025 ambulatory Rajendra Desouza Click CHILD CARE CENTER ASSISTANT DIRECTOR.PRACTICE NURSE Work Phone: Pulmonary Medicine Comment on above: NIV Start: 06-11-2025 End: 06-11-2025 Telephone encounter Rajendra Desouza Click CHILD CARE CENTER ASSISTANT DIRECTOR.PRACTICE NURSE Work Phone: Pulmonary Medicine Comment on above: Orders Start: 06-08-2025 End: 06-08-[address] Reza Elena MD [facility] Work Phone: Start: 06-08-2025 End: 06-08-[address] Phuc Martines DO Work Phone: [facility] Start: 06-04-2025 End: 06-04-2025 ambulatory PHUC MARTINES Facility:[facility] Start: 05-21-2025 End: 06-18-2025 ambulatory OSVALDO ARELLANO [facility] Start: 05-17-2025 Non-patient / Non-visit Dr. George Polanco MD [facility] Work Phone: Start: 05-16-2025 Non-patient / Non-visit Dr. George Polanco MD [facility] Work Phone: Start: 05-15-2025 Non-patient / Non-visit Dr. George Polanco MD [facility] Work Phone: Start: 05-14-2025 Non-patient / Non-visit Dr. George Polanco MD [facility] Work Phone: Start: 05-13-2025 ambulatory Nicko Vallejo Fac ility:[facility] Start: 05-13-2025 End: 05-17-2025 Evaluation and management of inpatient Dr. Nicko Vallejo DO -Progressive Care Unit Work Phone: Start: 05-13-2025 Emergency department patient visit Dr. Phuc Martines DO Work Phone: -Emergency Department Work Phone: Start: 05-12-2025 End: 05-12-2025 Follow-up encounter Sofi Garcia PA-C Work Phone: [facility] Start: 05-12-2025 End: 05-12-2025 Office outpatient new 60 minutes Jaden Newton MD Work Phone: [facility] Cardiology [facility] Comment on above: Centrilobular emphys mason (HCC) (Primary Dx); Oxygen dependent; Chronic respiratory failure with hypoxia (HCC); Essential hypertension; Typical atrial flutter (HCC); Alcohol abuse; Mixed hyperlipidemia; Bilateral lower extremity edema Start: 05-12-2025 End: 05-12-2025 [facility] Start: 05-11-2025 End: 05-11-2025 ambulatory PHUC MARTINES Facility:[facility] Start: 05-11-2025 End: 05-11-2025 Office outpatient visit 40 minutes Sofi Garcia PA-C Work Phone: [facility] Comment on above: Hospital discharge f ollow-up (Primary Dx); Atrial flutter, unspecified type (HCC); Stage 3 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); RUQ pain; Congestive heart failure, unspecified HF chronicity, unspecified heart failure type (HCC); Essential hypertension Start: 05-11-2025 End: 05-11-2025 ambulatory PHUC MARTINES Facility:[facility] Start: 05-07-2025 End: 05-07-[address] Phuc Martines DO Work Phone: -[facility] Start: 05-07-2025 End: 05-07-2025 Patient encounter procedure Kim GONZALEZ -[facility] Work Phone: Start: 05-07-2025 End: 05-07-2025 ambulatory Kim Price Facility:[facility] Start: 04-27-2025 Non-patient / Non-visit Dr. George Polanco MD -[facility] Work Phone: Start: 04-26-2025 Non-patient / Non-visit Dr. George Polanco MD -[facility] Work Phone: Start: 04-25-2025 Non-patient / Non-visit Dr. George Polanco MD -[facility] Work Phone: Start: 04-24-2025 Non-patient / Non-visit Dr. George Polanco MD -[facility] Work Phone: Start: 04-23-2025 ambulatory Virginia Henriquez Facility :[facility] Start: 04-23-2025 End: 04-27-2025 Evaluation and management of inpatient Dr. Virginia Henriquez MD -Progressive Care Unit Work Phone: Start: 04-23-2025 End: 04-23-2025 Office outpatient visit 40 minutes Tyra Carson APRN.PRACTICE NURSE Work Phone: [facility] [place] Comment on above: Acute confusion (Blanca patrizia Dx); Atrial flutter, unspecified type (HCC); Tachycardia; Stage 3 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); Congestive heart failure, unspecified HF chronicity, unspecified heart failure type (HCC); Hypersomnia; Hives; Abnormal pulse oximetry Start: 04-23-2025 End: 04-23-2025 ambulatory PHUC MARTINES Facility:[facility] Start: 04-22-2025 End: 04-22-2025 Follow-up encounter Anais LYNN Work Phone: [facility] Comment on above: Results Start: 04-20-2025 End: 04-20-2025 Patient encounter procedure Damon Eugene APRN.PRACTICE NURSE Work Phone: [facility] Comment on above: Acute cystitis with hematuria; Candidal intertrigo; Confusion Start: 04-20-2025 End: 04-20-2025 ambulatory DAMON EUGENE Facility:[facility] Start: 04-06-2025 End: 04-06-2025 ambulatory Rajendra Goodman APRN.PRACTICE NURSE Work Phone: Pulmonary Medicine Comment on above: Sleep Study Start: 03-31-2025 End: 03-31-2025 Patient encounter procedure Janette Damon APRN.PRACTICE NURSE Work Phone: [facility] Comment on above: Essential (primary) hypertension; Atrial flutter, unspecified type (HCC) Start: 03-31-2025 End: 03-31-2025 ambulatory PHUC Osmany PEREZMARTINES Facility:[facility] Start: 03-30-2025 End: 03-30-[address] Phuc Martines DO Work Phone: [facility] Work Phone: Start: 03-30-2025 End: 03-30-[address] Reza Elena MD -[facility] Work Phone: Start: 03-10-2025 End: 03-10-2025 Office outpatient visit 15 minutes Rajendra Goodman APRN.PRACTICE NURSE Work Phone: Pulmonary Medicine Comment on above: Daytime sleepiness ( Primary Dx); Stage 3 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); Chronic respiratory failure with hypoxia (HCC) Start: 03-10-2025 End: 03-10-2025 ambulatory PHUC L MARTINES Facility:[facility] Start: 03-01-2025 End: 03-01-2025 Patient encounter procedure Janette Damon APRN.PRACTICE NURSE Work Phone: [facility] Comment on above: Hospital discharge f ollow-up (Primary Dx); Atrial flutter, unspecified type (HCC); Congestive heart failure, unspecified HF chronicity, unspecified heart failure type (HCC); Stage 3 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); Oxygen dependent; Essential hypertension Start: 03-01-2025 End: 03-01-2025 ambulatory PHUC MARTINES Facility:[facility] Start: 02-23-2025 Non-patient / Non-visit Dr. Yee Jones MD -[facility] Work Phone: Start: 02-22-2025 Non-patient / Non-visit Dr. Yee Jones MD -[facility] Work Phone: Start: 02-21-2025 Non-patient / Non-visit Dr. Claudia Do [facility] Work Phone: Start: 02-20-2025 ambulatory Mercy Purvis Facility:[facility] Start: 02-20-2025 Non-patient / Non-visit Dr. Mercy smith MD -[facility] Start: 02-20-2025 Non-patient / Non-visit Dr. Claudia Do [facility] Work Phone: Start: 02-19-2025 ambulatory Kym Norton Facility:[facility] Start: 02-19-2025 End: 02-23-2025 Evaluation and management of inpatient Dr. Yee Jones MD -Progressive Care Unit Work Phone: Start: 01-26-2025 End: 01-26-2025 Follow-up encounter Maricruz Camp APRN.PRACTICE NURSE Work Phone: Pulmonary Medicine Start: 01-25-2025 End: 01-25-2025 Patient encounter procedure Maricruz Camp APRN.PRACTICE NURSE Work Phone: Pulmonary Medicine Comment on above: Multiple lung nodule s (Primary Dx); Former tobacco use Start: 01-25-2025 End: 01-25-2025 ambulatory PHUC MARTINES Facility:[facility] Start: 01-25-2025 End: 01-25-2025 Subsequent hospital visit by physician [facility] (I-Stat) Work Phone: Cat Scan Start: 01-21-2025 End: 03-23-2025 Follow-up encounter Pratibha King APRN.PRACTICE NURSE Work Phone: [facility] Start: 01-20-2025 End: 01-20-2025 ambulatory PHUC MARTINES Facility:[facility] Start: 01-20-2025 End: 01-20-2025 Patient encounter procedure Phuc Martines DO Work Phone: [facility] Comment on above: Medicare annual well ness visit, subsequent (Primary Dx); Hair thinning; Fatigue, unspecified type; Impaired fasting glucose; Dyslipidemia; Vitamin D deficiency; Stage 3 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); Essential hypertension; Oxygen dependent; Morbid obesity with BMI of 45.0-49.9, adult ([facility]) Start: 01-13-2025 End: 01-13-2025 ambulatory PHUC L MARTINES Facility:[facility] Start: 12-25-2024 End: 12-25-2024 ambulatory PHUC L MARTINES Facility:[facility] Start: 12-25-2024 End: 12-25-2024 Office outpatient visit 15 minutes Rajendra Goodman APRN.PRACTICE NURSE Work Phone: Pulmonary Medicine Comment on above: Stage 3 severe COPD by GOLD classification ([facility]) (Primary Dx); Chronic respiratory failure with hypoxia ([facility]); Former cigarette smoker Start: 12-03-2024 End: 12-03-2024 ambulatory PHUC L MARTINES Facility:[facility] Start: 12-03-2024 End: 12-03-2024 Subsequent hospital visit by physician Screen Mammo [facility] Mammogram Comment on above: Encounter for screen ing mammogram for breast cancer [Z12.31] Start: 11-27-2024 End: 11-27-2024 Refill Phuc L Martines DO Work Phone: [facility] Comment on above: Refill Request; Lab Orders Start: 11-11-2024 End: 11-11-2024 ambulatory Jacobo Donald MA [facility] Start: 11-11-2024 End: 11-11-2024 Patient encounter procedure Jacobo Donald MA [facility] Comment on above: Population Health Na vigation Outreach ([facility]ER[facility] CABELLO [facility]) Start: 11-05-2024 End: 11-05-2024 ambulatory Irma WATKINS Pulmonary Medicine Start: 10-21-2024 End: 10-26-2024 ambulatory Phuc L Martines DO Work Phone: Internal Medicine [place] [id number] Start: 10-20-2024 End: 10-20-2024 ambulatory Maricruz Camp APRN.PRACTICE NURSE Work Phone: Pulmonary Medicine Start: 10-19-2024 End: 10-19-2024 E-mail encounter from caregiver Hodan Christine PA-C Work Phone: Pulmonary Medicine Start: 10-19-2024 End: 10-19-2024 Patient encounter procedure Maricruz Camp APRN.PRACTICE NURSE Work Phone: Pulmonary Medicine Comment on above: Multiple lung nodule s (Primary Dx); Encounter for screening for lung cancer; Former tobacco use Start: 10-19-2024 End: 10-19-2024 ambulatory Hodan Christine PA-C Work Phone: Pulmonary Medicine Comment on above: check in Start: 10-19-2024 End: 10-19-2024 Subsequent hospital visit by physician [facility] (I-Stat) Work Phone: Cat Scan Comment on above: Former cigarette smo ker [Z87.891] Start: 08-13-2024 End: 08-13-2024 ambulatory Phuc Martines DO Work Phone: [facility] [place] Comment on above: Pap and Mammo Start: 07-17-2024 End: 07-17-2024 Refill Vicky Duong APRN.PRACTICE NURSE Work Phone: [facility] [place] Comment on above: Refill Request Start: 06-26-2024 End: 06-26-2024 Patient encounter procedure Diana Gonzalez MD Work Phone: Pulmonary Medicine Comment on above: Stage 3 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) (Primary Dx); Chronic hypoxemic respiratory failure (HCC); Former cigarette smoker; Morbid obesity (HCC) Start: 04-26-2024 End: 04-26-2024 Patient encounter procedure Damon Eugene APRN.PRACTICE NURSE Work Phone: [facility] Comment on above: Skin infection (Prim luna Dx) Start: 03-30-2024 Telephone encounter Phuc robins DO Work Phone: [facility] [place] Comment on above: Patient Update Start: 03-13-2024 End: 03-13-2024 Patient encounter procedure Phuc Martines DO Work Phone: [facility] [place] Comment on above: Acute bronchitis wit h chronic obstructive pulmonary disease (COPD) (HCC) (HCC) (Primary Dx); Chronic obstructive pulmonary disease, unspecified COPD type ([facility]); Acute otitis media, left; Dyslipidemia; Impaired fasting glucose; Vitamin D deficiency; Essential hypertension; Stage 3 severe COPD by GOLD classification ([facility]); Fatigue, unspecified type; Oxygen dependent; Morbid obesity with BMI of 45.0-49.9, adult ([facility]); Thoracic aortic ectasia ([facility]) Start: 02-12-2024 Refill Phuc caban DO Work Phone: [facility] [place] Comment on above: Refill Request Start: 01-29-2024 End: 01-29-2024 Patient encounter procedure Srikanthsmamy Estrada APRN.PRACTICE NURSE Work Phone: [facility] Comment on above: Skin infection (Prim luna Dx) Start: 12-26-2023 End: 12-26-2023 Patient encounter procedure Diana Gonzalez MD Work Phone: Pulmonary Medicine Comment on above: Stage 3 severe COPD by GOLD classification ([facility]) (Primary Dx); Chronic respiratory failure with hypoxia ([facility]); Morbid obesity with BMI of 45.0-49.9, adult ([facility]); Lung nodules Start: 12-24-2023 Telephone encounter Phuc robins DO Work Phone: [facility] [place] Comment on above: Orders Start: 10-08-2023 End: 10-08-2023 Subsequent hospital visit by physician [facility] (I-Stat) Work Phone: Cat Scan Comment on above: Former cigarette smo ker [Z87.891] Start: 09-17-2023 End: 09-17-2023 Subsequent hospital visit by physician Screen Mammo [facility] Mammogram Comment on above: Encounter for screen ing mammogram for malignant neoplasm of breast [Z12.31] Start: 08-16-2023 Telephone encounter Phuc robins DO Work Phone: [facility] [place] Comment on above: Results Start: 08-14-2023 End: 08-14-2023 Patient encounter procedure Phuc Martines DO Work Phone: [facility] [place] Comment on above: Essential hypertensi on (Primary Dx); Need for influenza vaccination; Encounter for screening mammogram for malignant neoplasm of breast; Need for RSV immunization; Vitamin D deficiency; Impaired fasting glucose; Stage 3 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); Oxygen dependent; Fatigue, unspecified type; Rash of foot; Dyslipidemia Start: 07-28-2023 Refill Phuc caban DO Work Phone: [facility] Comment on above: Refill Request Start: 06-13-2023 End: 06-13-2023 ambulatory Pul[facility] Work Phone: [facility] Comment on above: Spirometry Start: 06-13-2023 End: 06-13-2023 Patient encounter procedure [facility] Work Phone: [facility] Comment on above: COPD, severe (HCC) ( Primary Dx); Chronic hypoxemic respiratory failure (HCC); Former cigarette smoker; Morbid obesity (HCC) Start: 05-30-2023 Telephone encounter Diana Gonzalez MD Work Phone: Pulmonary Medicine Comment on above: Patient Question (Adrián chan appt) Start: 03-06-2023 End: 03-06-2023 Subsequent hospital visit by physician [facility] Mob 2 Work Phone: Radiology Comment on above: Cyst of spleen [D73. 4] Start: 12-04-2022 Refill Phuc caban DO Work Phone: [facility] Comment on above: Refill Request Start: 10-10-2022 End: 10-10-2022 ambulatory [facility] Work Phone: [facility] Comment on above: Arrived Medicare corresponde nce Start: 10-10-2022 End: 10-10-2022 Patient encounter procedure [facility] Work Phone: [facility] [place] Start: 09-28-2022 End: 09-28-2022 Subsequent hospital visit by physician [facility] Work Phone: Radiology Comment on above: COVID [U07.1] Start: 09-28-2022 End: 09-28-2022 Patient encounter procedure Pratibha King CHILD CARE CENTER ASSISTANT DIRECTOR.PRACTICE NURSE Work Phone: [facility] [place] Comment on above: COVID (Primary Dx); Chronic obstructive pulmonary disease, unspecified COPD type (HCC); Bacterial sinusitis; Oxygen dependent Start: 09-12-2022 Documentation procedure Mammog angel Coordinator [facility] Start: 09-12-2022 Letter encounter Mammography Coordinator [facility] Department Start: 09-12-2022 Telephone encounter Phuc robins DO Work Phone: [facility] [place] Comment on above: Forms Start: 09-11-2022 End: 09-11-2022 Subsequent hospital visit by physician Screen Mammo [facility] Mammogram Comment on above: Encounter for screen ing mammogram for breast cancer [Z12.31] Start: 09-06-2022 Telephone encounter Pratibha Ma CHILD CARE CENTER ASSISTANT DIRECTOR.PRACTICE NURSE Work Phone: [facility] [place] Comment on above: Results; Scheduling Start: 09-05-2022 ambulatory Phuc Osmany Prem caban DO Work Phone: [facility] [place] Start: 09-03-2022 End: 09-03-2022 Subsequent hospital visit by physician [facility] Mob 2 Work Phone: Radiology Comment on above: Cyst of spleen [D73. 4] Start: 08-30-2022 Telephone encounter Pratibha Ma CHILD CARE CENTER ASSISTANT DIRECTOR.PRACTICE NURSE Work Phone: [facility] [place] Comment on above: Results Start: 08-29-2022 End: 08-29-2022 Subsequent hospital visit by physician [facility] (I-Stat) Work Phone: Cat Scan Comment on above: Chronic obstructive pulmonary disease, unspecified COPD type (HCC) [J44.9] Start: 08-03-2022 Telephone encounter Phuc robins DO Work Phone: [facility] [place] Comment on above: Forms Start: [...] (Primary Dx) Orders Start: 03-19-2022 ambulatory Hodan Cannon-C Work Phone: Pulmonary Medicine Comment on above: results Start: 03-19-2022 E-mail encounter fro m caregiver Hodan VIVEROSC Work Phone: [facility] HeckylN Start: 03-16-2022 End: 03-16-2022 ambulatory Respiratory Therapist [facility] Work Phone: Pulmonary Medicine Comment on above: Spirometry Start: 03-16-2022 End: 03-16-2022 Patient encounter procedure Respiratory Therapist [facility] Work Phone: [facility] Comment on above: Chronic obstructive pulmonary disease, unspecified COPD type (HCC) (Primary Dx); Chronic hypoxemic respiratory failure (HCC); Dyspnea and respiratory abnormalities; Former smoker Start: 03-07-2022 Refill Phuc caban DO Work Phone: [facility] [place] Comment on above: Refill Request Start: 02-09-2022 End: 02-09-2022 Patient encounter procedure Hodan LYNN-C Work Phone: Pulmonary Medicine Comment on above: Chronic obstructive pulmonary disease, unspecified COPD type (HCC) (Primary Dx); Dyspnea and respiratory abnormalities Start: 01-30-2022 End: 01-30-2022 Patient encounter procedure Phuc Martines DO Work Phone: [facility] [place] Comment on above: Chronic obstructive pulmonary disease, unspecified COPD type (HCC) (Primary Dx); Essential hypertension; Impaired fasting glucose; Dyslipidemia; Vitamin D deficiency; Lightheaded Start: 01-10-2021 End: 01-10-2021 Subsequent hospital visit by physician Pedro [facility] [place] Work Phone: Radiology Comment on above: Acute gout involving toe of right foot, unspecified cause [M10.9] Start: 05-19-2019 End: 10-13-2019 Physical examination Phuc Martines DO Work Phone: [facility] Start: 09-10-2018 End: 09-10-2018 Patient encounter procedure [facility] Start: 09-05-2018 Encounter for other preprocedural examination [facility] Start: 09-05-2018 End: 09-05-2018 Patient encounter procedure [facility] Start: 11-09-2016 End: 10-13-2019 Patient encounter status Phuc Martines DO Work Phone: [facility] Procedures Date Procedure Procedure Detail Performing Clinician Start: 05-16-[address] Phuc Martines DO Work Phone: Start: 05-13-2025 CT angiography of ch est with contrast Dr. Phuc Martines DO Work Phone: Start: 05-13-[address] Phuc Martines DO Work Phone: Start: 05-13-[address] Phuc Martines DO Work Phone: Start: 05-13-2025 Carbon dioxide amairani nt measurement Dr. Phuc Martines DO Work Phone: [...] Martines DO Work Phone: Start: 05-13-[address] Phuc Martines DO Work Phone: Start: 05-12-2025 Ecg routine ecg w/le ast 12 lds w/i&r Jaden Newton MD Work Phone: Start: 05-07-2025 X-ray of chest, [...] Start: 01-25-2025 Ct thorax w/o contra st liliana Camp CHILD CARE CENTER ASSISTANT DIRECTOR.PRACTICE NURSE Work Phone: Start: 01-20-2025 Thyrotropin [Units/v olume] in Serum or Plasma Jaden Newton MD Work Phone: Start: 01-13-2025 Lipid 1995 panel - S joaquin or Plasma Puhc Perezrison DO Work Phone: Start: 12-03-2024 End: 12-03-2024 Screening digital breast tomosynthesis bi Bulk Order Provider Start: 10-19-2024 CT LUNG SCREEN WO ASHER Camp CHILD CARE CENTER ASSISTANT DIRECTOR.PRACTICE NURSE Work Phone: Start: 03-13-2024 Adult depression scr eening assessment Diana Gonzalez MD Work Phone: Start: 03-11-2024 Lipid 1995 panel - S joaquin or Plasma Phuc Perezrison DO Work Phone: Start: 09-17-2023 Screening mammograph y bi 2-view breast inc cad Phuc Martines DO Work Phone: Start: 08-14-2023 INFLUENZA VACCINE, P RSV FREE, AGE 65+ YR, HIGH DOSE, QUADRIVALENT (FLUZONE HIGH-DOSE) Phuc Martines DO Work Phone: Start: 08-14-2023 Lipid 1996 panel - S joaquin or Plasma Phuc Perezrison DO Work Phone: Start: 06-13-2023 Noninvasive ear/puls e oximetry multiple deter Hodan Christine PA-C Work Phone: Start: 03-06-2023 Us abdominal real ti me w/image limited [facility] CHILD CARE CENTER ASSISTANT DIRECTOR.PRACTICE NURSE Work Phone: Start: 10-10-2022 Noninvasive ear/puls e oximetry multiple deter Phuc L Martines DO Work Phone: Start: 09-28-2022 Radiologic exam ches t 2 views [facility] CHILD CARE CENTER ASSISTANT DIRECTOR.PRACTICE NURSE Work Phone: Start: 09-11-2022 End: 09-11-2022 Mammography Bulk Order Provider Start: 09-03-2022 Us abdominal real ti me w/image limited [facility] CHILD CARE CENTER ASSISTANT DIRECTOR.PRACTICE NURSE Work Phone: Start: 08-29-2022 Ct thorax w/o [...] Noninvasive ear/puls e oximetry multiple deter Hodan VIVEROSC Work Phone: Start: 03-16-2022 Spmtry w/vc expirato ry martin w/wo mxml vol vntj Hodan Christine PAKikeC Work Phone: Start: 04-26-2021 Adult depression scr eening assessment Phuc Martines DO Work Phone: Start: 01-10-2021 Radex foot complete minimum 3 views Tierra VIVEROSC Work Phone: Start: 09-02-2020 Mammography Phuc Gar rison DO Work Phone: Start: 09-10-2018 Colonoscopy Phuc quiñonez DO Work Phone: Plan of Treatment Date Care Activity Detail Author Start: 01-13-2030 Lipid panel Lipid Screening [facility] Start: 03-11-2029 Lipid panel Lipid Screening [facility] Start: 09-10-2028 Colonoscopy COLONOSCOPY [facility] Start: 09-10-2028 COLORECTAL CANCER SCREENING COLORECTAL CANCER SCREENING [facility] Start: 09-10-2028 Screening for malign ant neoplasm of colon [facility] Start: 08-14-2028 Lipid 1996 panel - S joaquin or Plasma Lipid Screening [facility] Start: 08-14-2028 Lipid panel Lipid Screening [facility] Start: 05-11-2028 Diabetes Screening Diabetes Screenin g [facility] Start: 01-14-2028 Diabetes Screening Diabetes Screenin g [facility] Start: 07-30-2027 Lipid 1996 panel - S joaquin or Plasma Lipid Screening [facility] Start: 07-30-2027 LIPID SCREEN LIPID SCREEN [facility] Start: 03-11-2027 Diabetes Screening Diabetes Screenin g [facility] Start: 01-26-2027 LIPID SCREEN LIPID SCREEN [facility] Start: 08-14-2026 Diabetes Screening Diabetes Screenin g [facility] Start: 05-11-2026 Annual PCP Team Math And Science Instructor humza Disease Visit Annual PCP Team Chronic Disease Visit [facility] Start: 04-23-2026 Annual PCP Team Math And Science Instructor humza Disease Visit Annual PCP Team Chronic Disease Visit [facility] Start: 04-23-2026 Creatinine measurement Creatinine Le kenneth [facility] Start: 04-23-2026 Potassium measurement Potassium Leve l [facility] Start: 03-31-2026 Annual PCP Team Math And Science Instructor humza Disease Visit Annual PCP Team Chronic Disease Visit [facility] Start: 03-01-2026 Annual PCP Team Math And Science Instructor humza Disease Visit Annual PCP Team Chronic Disease Visit [facility] Start: 03-01-2026 BP Controlled (<130/80) BP Controlle d (<130/80) [facility] Start: 01-20-2026 Annual PCP Team Math And Science Instructor humza Disease Visit Annual PCP Team Chronic Disease Visit [facility] Start: 01-20-2026 Medicare Annual Well ness Visit Medicare Annual Wellness Visit [facility] Start: 01-20-2026 Thyroid stimulating hormone measurement TSH Level [facility] Start: 01-13-2026 Diabetes mellitus screening Diabetes Screening [facility] Start: 12-03-2025 Screening for malign ant neoplasm of breast [facility] Start: 11-09-2025 DTaP/Tdap/Td Vaccine s (3 - Td or Tdap) DTaP/Tdap/Td Vaccines (3 - Td or Tdap) [facility] Start: 11-09-2025 Urine microalbumin profile [facility] Start: 11-02-2025 End: 11-02-2025 Patient encounter procedure 11/02/2025 11:45 AM EST Office Visit Pulmonary Medicine [address] [place] [address] Diana Gonzalez MD [address] [place] [address] First Available - Follow up Pulmonary Medicine Comment on above: First Available - Fo llow up Start: 09-27-2025 End: 09-27-2025 Patient encounter procedure 09/27/2025 8:20 AM EST Office Visit Cardiology [address] [place], [place] [address] Toribio Robertson MD [address] [facility] [facility] [address] [place], [place] [id number] Dx: Atrial flutter, unspecified type (HCC) [I48.92]; Congestive heart failure, unspecified HF chronicity, unspecified heart failure type (HCC) [I50.9] Cardiology Comment on above: Dx: Atrial flutter, unspecified type (HCC) [I48.92]; Congestive heart failure, unspecified HF chronicity, unspecified heart failure type (HCC) [I50.9] Start: 09-02-2025 HPV TESTING HPV TESTING [facility] Start: 09-02-2025 PAP TESTING PAP TESTING [facility] Start: 08-04-2025 End: 08-04-2025 Patient encounter procedure 08/04/2025 10:00 AM EDT Office Visit Pulmonary Medicine [address] [place], [place] [id number] Rajendra Goodman APRN.PRACTICE NURSE [address] [place] [address] 2 month follow up Pulmonary Medicine Comment on above: 2 month follow up Start: 07-30-2025 DIABETES SCREEN DIABETES SCREEN [facility] Start: 07-30-2025 Diabetes Screening Diabetes Screeniraida g [facility] Start: 07-30-2025 End: 07-30-2025 Evaluation of diagnostic study results [facility] Start: 07-29-2025 End: 07-29-2025 Patient encounter procedure Cat Scan Comment on above: 6 month LDCT 6 month LCS Start: 07-23-2025 End: 07-23-2025 Patient encounter procedure 07/23/2025 12:00 PM EDT Office Visit [facility] [place] [address] [place] [address] Phuc Martines, [address] [place] [address] 6 month follow up [facility] [place] Comment on above: 6 month follow up Start: 07-01-2025 End: 07-01-2025 Evaluation of diagnostic study results [facility] Start: 06-28-2025 Influenza vaccination Influenza Vacc ine (#1) [facility] Start: 06-24-2025 Patient discharge [facility] Start: 06-22-2025 End: 06-22-2025 Patient encounter procedure Pulmonary Medicine Comment on above: 6 month f/u Start: 06-08-2025 Cardioversion [facility] Start: 06-08-2025 End: 06-08-2025 Evaluation of diagnostic study results [facility] Start: 05-26-2025 End: 08-25-2025 ALK PHOS ISOENZYM BL ALK PHOS ISOENZYM BL Lab Routine Elevated alkaline phosphatase level Expected: 05/26/2025, Expires: 08/25/2025 [facility] Comment on above: Expected: 05/26/2025 , Expires: 08/25/2025 Start: 05-26-2025 End: 08-25-2025 Gamma glutamyl transferase [Enzymatic activity/volume] in Serum or Plasma GGT Lab Routine Elevated alkaline phosphatase level Expected: 05/26/2025, Expires: 08/25/2025 [facility] Work Phone: Comment on above: Expected: 05/26/2025 , Expires: 08/25/2025 Start: 05-19-2025 End: 05-19-2025 Patient encounter procedure 05/19/2025 11:30 AM EDT Appointment Radiology [address] [place] [address] Dx: RUQ pain [R10.11] Radiology Comment on above: Dx: RUQ pain [R10.11 ] Start: 05-17-2025 End: 05-17-2025 Patient encounter procedure 05/17/2025 9:00 PM EDT Office Visit Neurology [address] [place] [address] Daytime sleepiness [R40.0] Neurology Comment on above: Daytime sleepiness [ R40.0] Start: 05-17-2025 Patient discharge [facility] Start: 05-17-2025 Referral for physica l therapy [facility] Start: 05-17-2025 Referral to occupati onal therapist [facility] Start: 05-17-2025 Referral to service [facility] Start: 05-16-2025 Application of elast ic bandage [facility] Start: 05-14-2025 Inhalation therapy procedure [facility] Start: 05-13-2025 Ambulation without limitation [facility] Start: 05-13-2025 Assessment of risk o f venous thromboembolism [facility] Start: 05-13-2025 Insertion of cathete r into peripheral vein [facility] Start: 05-13-2025 Measuring intake and output [facility] Start: 05-13-2025 Oxygen therapy [facility] Start: 05-13-2025 Providing care accor ding to standard [facility] Start: 05-13-2025 Referral to service [facility] Start: 05-13-2025 [facility] Start: 05-13-2025 Following clinical pathway protocol [facility] Start: 05-13-2025 Admission procedure [facility] Start: 05-13-2025 Verification routine [facility] Start: 05-13-2025 Hospital admission, emergency, from emergency room, medical nature [facility] Start: 05-13-2025 [facility] Start: 05-13-2025 CT angiography of ch est with contrast CTA Chest W/WO Contrast [facility] Start: 05-13-2025 Continuous pulse oximetry [facility] Start: 05-13-2025 Dual pressure sponta neous ventilation support [facility] Start: 05-13-2025 End: 05-13-2025 [facility] Start: 05-13-2025 Patient referral to dietitian [facility] Start: 04-27-2025 Patient discharge [facility] Start: 04-26-2025 Referral for physica l therapy [facility] Start: 04-26-2025 Referral to occupati onal therapist [facility] Start: 04-26-2025 Referral to service [facility] Start: 04-25-2025 Care planning and pr oblem solving actions [facility] Start: 04-24-2025 Care planning and pr oblem solving actions [facility] Start: 04-23-2025 Following clinical pathway protocol [facility] Start: 04-23-2025 Assessment of risk o f venous thromboembolism [facility] Start: 04-23-2025 Inhalation therapy procedure [facility] Start: 04-23-2025 Insertion of cathete r into peripheral vein [facility] Start: 04-23-2025 Introduction of urin luna catheter [facility] Start: 04-23-2025 Measuring intake and output [facility] Start: 04-23-2025 Oxygen therapy [facility] Start: 04-23-2025 Providing care accor ding to standard [facility] Start: 04-23-2025 Provision of activit y privileges [facility] Start: 04-23-2025 Referral to service [facility] Start: 04-23-2025 [facility] Start: 04-23-2025 Care planning and pr oblem solving actions [facility] Start: 04-23-2025 Respiratory pathogen s DNA and RNA panel - Respiratory specimen by RENETTA with probe detection [facility] Start: 04-23-2025 Verification routine [facility] Start: 04-23-2025 Admission procedure [facility] Start: 04-23-2025 Hospital admission, emergency, from emergency room, medical nature [facility] Start: 04-23-2025 Serum inorganic phos phate measurement [facility] Start: 04-23-2025 [facility] Start: 04-23-2025 End: 04-23-2025 Patient encounter procedure 04/23/2025 3:00 PM EDT Office Visit Family [facility] [address] [place] [address] Tyra Carson APRN.PRACTICE NURSE [address] [place] [address] increased confussion [facility] Comment on above: increased confussion Start: 04-23-2025 [facility] Start: 03-31-2025 End: 03-31-2025 Patient encounter procedure 03/31/2025 1:00 PM EDT Office Visit [facility] [place] [address] [place] [address] Janette Damon APRN.PRACTICE NURSE [address] [facility] [place] [address] BP follow up Family [facility] Comment on above: BP follow up Start: 03-30-2025 Patient referral [facility] Work Phone: Start: 03-30-2025 Evaluation of diagno stic study results [facility] Start: 03-13-2025 Annual PCP Team Math And Science Instructor humza Disease Visit Annual PCP Team Chronic Disease Visit [facility] Start: 03-13-2025 Anxiety Screening Anxiety Screening [facility] Start: 03-13-2025 Depression Screening Depression Scre ening [facility] Start: 03-10-2025 End: 03-10-2025 Patient encounter procedure 03/10/2025 1:00 PM EDT Office Visit Pulmonary Medicine [address] [facility] [place] [address] Rajendra Goodman CHILD CARE CENTER ASSISTANT DIRECTOR.PRACTICE NURSE [address] [place] [address] recent hospital stay Pulmonary Medicine Comment on above: recent hospital stay Start: 02-23-2025 Patient discharge [facility] Start: 02-20-2025 Vital signs measurements [facility] Start: 02-20-2025 Continuous pulse oximetry [facility] Start: 02-20-2025 Vital signs measurements [facility] Start: 02-20-2025 Vital signs measurements [facility] Start: 02-20-2025 Care planning and pr oblem solving actions [facility] Start: 02-20-2025 Vital signs measurements [facility] Start: 02-20-2025 Vital signs measurements [facility] Start: 02-20-2025 Vital signs measurements [facility] Start: 02-20-2025 Vital signs measurements [facility] Start: 02-20-2025 Dual pressure sponta neous ventilation support [facility] Start: 02-20-2025 Physiotherapy of chest [facility] Start: 02-19-2025 Vital signs measurements [facility] Start: 02-19-2025 Vital signs measurements [facility] Start: 02-19-2025 Vital signs measurements [facility] Start: 02-19-2025 Application of elast ic bandage [facility] Start: 02-19-2025 Assessment of risk o f venous thromboembolism [facility] Start: 02-19-2025 Bedrest [facility] Start: 02-19-2025 Elevation of affecte d extremity [facility] Start: 02-19-2025 Elevation of head of bed [facility] Start: 02-19-2025 Insertion of cathete r into peripheral vein [facility] Start: 02-19-2025 Measuring intake and output [facility] Start: 02-19-2025 Notification of physician [facility] Start: 02-19-2025 Oxygen therapy [facility] Start: 02-19-2025 Patient education [facility] Start: 02-19-2025 Providing care accor ding to standard [facility] Start: 02-19-2025 Referral to service [facility] Start: 02-19-2025 [facility] Start: 02-19-2025 Vital signs measurements [facility] Start: 02-19-2025 Following clinical pathway protocol [facility] Start: 02-19-2025 Admission procedure [facility] Start: 02-19-2025 End: 02-19-2025 [facility] Start: 02-19-2025 Blood culture Blood Culture [facility] Start: 02-19-2025 Inhalation therapy procedure [facility] Start: 02-17-2025 End: 02-17-2025 Patient encounter procedure 02/17/2025 4:20 PM EDT Office Visit Family [facility] [address] [place] [address] Phuc Martines DO [address] [place] [address] FOLLOW UP [facility] [place] Comment on above: FOLLOW UP Start: 01-28-2025 BP Controlled (<130/80) BP Controlle d (<130/80) [facility] Start: 01-26-2025 DIABETES SCREEN DIABETES SCREEN [facility] Start: 01-25-2025 End: 01-25-2025 Patient encounter procedure Cat Scan Comment on above: LDCT [facility] Start: 01-20-2025 End: 01-20-2025 Patient encounter procedure 01/20/2025 3:00 PM EDT Office Visit [facility] [place] [address] [place] [address] Phuc Martines DO [address] [place] [address] FOLLOW UP [facility] [place] Comment on above: FOLLOW UP Start: 01-20-2025 End: 04-21-2025 Cobalamin (Vitamin B12) [Mass/volume] in Serum or Plasma [facility] Comment on above: Expected: 01/20/2025 , Expires: 04/21/2025 Start: 01-20-2025 End: 04-21-2025 Folate [Mass/volume] in Serum or Plasma [facility] Comment on above: Expected: 01/20/2025 , Expires: 04/21/2025 Start: 01-20-2025 End: 04-21-2025 Iron and Iron binding capacity panel - Serum or Plasma [facility] Comment on above: Expected: 01/20/2025 , Expires: 04/21/2025 Start: 01-20-2025 End: 04-21-2025 Thyrotropin [Units/volume] in Serum or Plasma [facility] Work Phone: Comment on above: Expected: 01/20/2025 , Expires: 04/21/2025 Start: 01-20-2025 End: 04-21-2025 Thyroxine (T4) free [Mass/volume] in Serum or Plasma [facility] Comment on above: Expected: 01/20/2025 , Expires: 04/21/2025 Start: 01-20-2025 End: 04-21-2025 Triiodothyronine (T3) Free [Mass/volume] in Serum or Plasma [facility] Comment on above: Expected: 01/20/2025 , Expires: 04/21/2025 Start: 12-26-2024 End: 11-18-2025 CT Lung parenchyma WO contrast CT LUNG FOLLOWUP WO IVCON Radiology Routine Expected: 12/26/2024, Expires: 11/18/2025 [facility] Work Phone: Comment on above: Expected: 12/26/2024 , Expires: 11/18/2025 Start: 12-25-2024 End: 12-25-2024 Patient encounter procedure 12/25/2024 11:30 AM EST Office Visit Pulmonary Medicine [address] [place] [address] Rajendra Goodman APRN.PRACTICE NURSE [address] [facility] [place] [address] 6 MTH F/U COPD Pulmonary Medicine Comment on above: 6 MTH F/U COPD Start: 12-03-2024 End: 12-03-2024 Patient encounter procedure 12/03/2024 11:10 AM EST Appointment Mammogram [address] [place] [address] Encounter for screening mammogram for breast cancer [Z12.31] Mammogram Comment on above: Encounter for screen ing mammogram for breast cancer [Z12.31] Start: 11-27-2024 End: 02-26-2025 CBC W Auto Differential panel - Blood COMPLETE BLOOD COUNT AND DIFFERENTIAL Lab Routine Dyslipidemia Expected: 11/27/2024, Expires: 02/26/2025 [facility] Comment on above: Expected: 11/27/2024 , Expires: 02/26/2025 Start: 11-27-2024 End: 02-26-2025 Comprehensive metabolic 2000 panel - Serum or Plasma COMPREHENSIVE METABOLIC PANEL Lab Routine Dyslipidemia Impaired fasting glucose Expected: 11/27/2024, Expires: 02/26/2025 [facility] Comment on above: Expected: 11/27/2024 , Expires: 02/26/2025 Start: 11-27-2024 End: 02-26-2025 Hemoglobin A1c in Blood HEMOGLOBIN A1C Lab Routine Impaired fasting glucose Expected: 11/27/2024, Expires: 02/26/2025 [facility] Work Phone: Comment on above: Expected: 11/27/2024 , Expires: 02/26/2025 Start: 11-27-2024 End: 02-26-2025 Lipid 1996 panel - Serum or Plasma LIPID PANEL BASIC Lab Routine Dyslipidemia Expected: 11/27/2024, Expires: 02/26/2025 [facility] Comment on above: Expected: 11/27/2024 , Expires: 02/26/2025 Start: 10-28-2024 Advance Directive Discussion Advance Directive Discussion [facility] Start: 10-19-2024 End: 10-19-2024 Patient encounter procedure Cat Scan Comment on above: LUNG SCREENING CT LUNG SCREENING Start: 09-17-2024 Mammography Mammogram Screening [facility] Start: 09-17-2024 Screening for malign ant neoplasm of breast Mammogram Screening [facility] Start: 09-08-2024 End: 09-08-2024 Patient encounter procedure 09/08/2024 10:40 AM EST Office Visit Family Jannie Meehan [address] [place] [id number] Phuc Martines DO [address] [place] [address] 6 month follow up Family Medicine Shefali Comment on above: 6 month follow up Start: 08-14-2024 Annual PCP Team Math And Science Instructor humza Disease Visit Annual PCP Team Chronic Disease Visit [facility] Start: 08-14-2024 BP Controlled (<130/80) BP Controlle d (<130/80) [facility] Start: 06-28-2024 Covid-19 Vaccine () Covid-19 Vaccine () [facility] Start: 06-28-2024 Covid-19 Vaccine () Covid-19 Vaccine () [facility] Start: 06-28-2024 Influenza vaccination Influenza Vacc ine (#1) [facility] Start: 06-26-2024 End: 06-26-2024 Patient encounter procedure 06/26/2024 11:45 AM EDT Office Visit Pulmonary Medicine [address] [place] [address] Diana Gonzalez MD [address] [place] [address] 6 month f/u Pulmonary Medicine Comment on above: 6 month f/u Start: 04-26-2024 End: 07-26-2024 Bacteria identified in Wound by Culture ABSCESS AND WOUND CULTURE WITH GRAM STAIN Microbiology Routine Skin infection Expected: 04/26/2024, Expires: 07/26/2024 [facility] Work Phone: Comment on above: Expected: 04/26/2024 , Expires: 07/26/2024 Start: 02-07-2024 ANNUAL PCP TEAM INKER HUMZA DISEASE VISIT ANNUAL PCP TEAM CHRONIC DISEASE VISIT [facility] Start: 12-24-2023 End: 03-24-2024 CBC W Auto Differential panel - Blood CBC + DIFF Lab Routine Dyslipidemia Expected: 12/24/2023, Expires: 03/24/2024 [facility] Work Phone: Comment on above: Expected: 12/24/2023 , Expires: 03/24/2024 Start: 12-24-2023 End: 03-24-2024 Comprehensive metabolic 2000 panel - Serum or Plasma COMP METABOLIC PANEL Lab Routine Dyslipidemia Expected: 12/24/2023, Expires: 03/24/2024 [facility] Work Phone: Comment on above: Expected: 12/24/2023 , Expires: 03/24/2024 Start: 12-24-2023 End: 03-24-2024 Hemoglobin A1c in Blood HGB A1C Lab Routine Impaired fasting glucose Expected: 12/24/2023, Expires: 03/24/2024 [facility] Work Phone: Comment on above: Expected: 12/24/2023 , Expires: 03/24/2024 Start: 12-24-2023 End: 03-24-2024 Lipid 1996 panel - Serum or Plasma LIPID PANEL BASIC Lab Routine Dyslipidemia Expected: 12/24/2023, Expires: 03/24/2024 [facility] Work Phone: Comment on above: Expected: 12/24/2023 , Expires: 03/24/2024 Start: 10-28-2023 Advance Directive Discussion Advance Directive Discussion [facility] Start: 10-28-2023 Behavioral Health Screening Behavioral Health Screening [facility] Start: 10-28-2023 Depression Assessment Depression Ass essment [facility] Start: 09-28-2023 ANNUAL PCP TEAM INKER HUMZA DISEASE VISIT ANNUAL PCP TEAM CHRONIC DISEASE VISIT [facility] Start: 09-11-2023 Mammography [facility] Start: 08-29-2023 Influenza vaccination LUNG CANCER SC REENING [facility] Start: 08-29-2023 Screening for malign ant neoplasm of lung Lung Cancer Screening [facility] Start: 08-14-2023 End: 11-13-2023 25-hydroxyvitamin D3 [Mass/volume] in Serum or Plasma [facility] Work Phone: Comment on above: Expected: 08/14/2023 , Expires: 11/13/2023 Start: 08-14-2023 End: 11-13-2023 Cobalamin (Vitamin B12) [Mass/volume] in Serum or Plasma [facility] Work Phone: Comment on above: Expected: 08/14/2023 , Expires: 11/13/2023 Start: 08-14-2023 End: 11-13-2023 Comprehensive metabolic 2000 panel - Serum or Plasma [facility] Work Phone: Comment on above: Expected: 08/14/2023 , Expires: 11/13/2023 Start: 08-14-2023 End: 11-13-2023 Hemoglobin A1c in Blood [facility] Work Phone: Comment on above: Expected: 08/14/2023 , Expires: 11/13/2023 Start: 08-14-2023 End: 11-13-2023 Lipid 1996 panel - Serum or Plasma [facility] Work Phone: Comment on above: Expected: 08/14/2023 , Expires: 11/13/2023 Start: 08-14-2023 End: 11-13-2023 Thyrotropin [Units/volume] in Serum or Plasma [facility] Work Phone: Comment on above: Expected: 08/14/2023 , Expires: 11/13/2023 Start: 08-14-2023 End: 11-13-2023 Thyroxine (T4) free [Mass/volume] in Serum or Plasma [facility] Work Phone: Comment on above: Expected: 08/14/2023 , Expires: 11/13/2023 Start: 08-14-2023 End: 11-13-2023 Triiodothyronine (T3) Free [Mass/volume] in Serum or Plasma [facility] Work Phone: Comment on above: Expected: 08/14/2023 , Expires: 11/13/2023 Start: 08-01-2023 ANNUAL PCP TEAM INKER HUMZA DISEASE VISIT ANNUAL PCP TEAM CHRONIC DISEASE VISIT [facility] Start: 06-28-2023 Covid-19 Vaccine ( season) Covid-19 Vaccine () [facility] Start: 06-28-2023 Influenza vaccination C [facility] Start: 05-01-2023 Adult depression screening assessment DEPRESSION SCREENING [facility] Start: 05-01-2023 ANNUAL PCP TEAM INKER HUMZA DISEASE VISIT ANNUAL PCP TEAM CHRONIC DISEASE VISIT [facility] Start: 03-06-2023 End: 10-06-2023 Us abdominal real time w/image limited US ABD SPLEEN Radiology Routine Cyst of spleen Expected: 03/06/2023, Expires: 10/06/2023 [facility] Work Phone: Comment on above: Expected: 03/06/2023 , Expires: 10/06/2023 Start: 01-30-2023 ANNUAL PCP TEAM INKER HUMZA DISEASE VISIT ANNUAL PCP TEAM CHRONIC DISEASE VISIT [facility] Start: 01-30-2023 BP CONTROLLED (<130/80) BP CONTROLLE D (<130/80) [facility] Start: 01-30-2023 zzBP Controlled (<13 0/80) (Retired) zzBP Controlled (<130/80) (Retired) [facility] Start: 10-28-2022 ADVANCE DIRECTIVE DISCUSSION ADVANCE DIRECTIVE DISCUSSION [facility] Start: 10-28-2022 DEPRESSION ASSESSMENT DEPRESSION ASS ESSMENT [facility] Start: 2022 ADVANCE DIRECTIVE DISCUSSION ADVANCE DIRECTIVE DISCUSSION [facility] Start: 2022 BONE DENSITY BONE DENSITY [facility] Start: 2022 Bone Density Screening Bone Density Screening [facility] Start: 2022 PNEUMOCOCCAL (3 - PP SV23 if available, else PCV20) PNEUMOCOCCAL (3 - PPSV23 if available, else PCV20) [facility] Start: 2022 PNEUMOCOCCAL (3 - PP SV23 or PCV20) PNEUMOCOCCAL (3 - PPSV23 or PCV20) [facility] Start: 2022 PNEUMOCOCCAL: 65+ (3 - PPSV23 if available, else PCV20) PNEUMOCOCCAL: 65+ (3 - PPSV23 if available, else PCV20) [facility] Start: 2022 Screening for osteoporosis Bone Density Screening [facility] Start: 06-28-2022 Influenza vaccination INFLUENZA (#1) [facility] Start: 05-05-2022 Influenza vaccination LUNG CANCER [facility] Start: 04-26-2022 Adult depression screening assessment DEPRESSION SCREENING [facility] Start: 12-16-2021 COVID-19 VACCINE (4 - Booster for Pfizer series) COVID-19 VACCINE (4 - Booster for Pfizer series) [facility] Start: 10-10-2021 COVID-19 VACCINE (4 - Booster for Pfizer series) COVID-19 VACCINE (4 - Booster for Pfizer series) [facility] Start: 10-10-2021 COVID-19 VACCINE (4 - Pfizer series) COVID-19 VACCINE (4 - Pfizer series) [facility] Start: 09-02-2021 Mammography MAMMOGRAM [facility] Start: 2017 RSV Vaccine (1 - 1-d ose 60+ series) RSV Vaccine (1 - 1-dose 60+ series) [facility] Start: 06-30-2016 FECAL OCCULT BLOOD FECAL OCCULT BLOO D [facility] Start: 06-30-2016 Screening for malign ant neoplasm of colon Fecal Occult Blood [facility] Start: 2002 COLOGUARD (FIT-DNA) COLOGUARD (FIT-D NA) [facility] Start: [address] COLONOGRAPHY [facility] Start: 2002 Screening for malign ant neoplasm of colon [facility] Start: 2002 SIGMOIDOSCOPY SIGMOIDOSCOPY [facility] Start: 1975 Hepatitis C screening Hepatitis C Sc reening [facility] Start: 1975 HIV SCREENING HIV SCREENING [facility] Start: 1969 Depression Screening Depression Scre ening [facility] Start: 1957 Echocardiography Echocardiogram [facility] Start: 1957 Lipid panel Lipid Panel [facility] Start: 1957 Medicare Annual Well ness (AWV) Medicare Annual Wellness (AWV) [facility] Start: 1957 Screening for malign ant neoplasm of colon [facility] Start: 1957 Screening for osteoporosis Bone Density Scan [facility] Bacteria identified in Urine by Culture BACTERIAL CULTURE, URINE Microbiology Routine Acute cystitis with hematuria 04/20/2025 11:11 AM EDT [facility] Work Phone: Basic metabolic 2008 panel with ionized calcium - Serum or Plasma [facility] Basic metabolic 2008 panel with ionized calcium - Serum or Plasma [facility] End: 02-25-2026 CT Lung parenchyma WO contrast CT LUNG FOLLOWUP WO IVCON Radiology Routine Lung nodules 1 Occurrences starting 01/26/2025 until 02/25/2026 [facility] Work Phone: Comment on above: 1 Occurrences starti ng 01/26/2025 until 02/25/2026 CT LUNG SCREEN WO IVCON CT LUNG SCREEN WO IVCON Radiology Routine Former cigarette smoker 10/08/2023 1:24 PM EST [facility] Work Phone: End: 08-31-2023 Ct thorax w/o contrast material CT CHEST WO IVCON Radiology Routine Chronic obstructive pulmonary disease, unspecified COPD type (HCC) Chronic respiratory failure with hypoxia (HCC) Stage 3 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) Oxygen dependent 1 Occurrences starting 08/01/2022 until 08/31/2023 [facility] Work Phone: Comment on above: 1 Occurrences starti ng 08/01/2022 until 08/31/2023 End: 11-20-2025 DBT Breast - bilateral screening ANUSHA SCREENING W ASHLEY Radiology Routine Encounter for screening mammogram for breast cancer 1 Occurrences starting 10/21/2024 until 11/20/2025 [facility] Work Phone: Comment on above: 1 Occurrences starti ng 10/21/2024 until 11/20/2025 ECG COMPLETE ECG COMPLETE ECG Routine Tachycardia Atrial flutter, unspecified type (HCC) Ordered: 04/23/2025 [facility] Work Phone: Comment on above: Ordered: 04/23/2025 End: 02-09-2023 Echocardiography ECHO Cardiology Routine Chronic obstructive pulmonary disease, unspecified COPD type (HCC) 1 Occurrences starting 02/09/2022 until 02/09/2023 [facility] Work Phone: Comment on above: 1 Occurrences starti ng 02/09/2022 until 02/09/2023 Magnesium measurement [facility] End: 09-12-2024 ANUSHA SCREENING ANUSHA SCREENING Radiology Routine Encounter for screening mammogram for malignant neoplasm of breast 1 Occurrences starting 08/14/2023 until 09/12/2024 [facility] Work Phone: Comment on above: 1 Occurrences starti ng 08/14/2023 until 09/12/2024 NM Heart Views W str ess and W radionuclide IV [facility] Noninvasive ear/puls e oximetry multiple deter [id number] Procedures Routine Chronic obstructive pulmonary disease, unspecified COPD type (HCC) Oxygen dependent Ordered: 09/24/2022 [facility] Work Phone: Comment on above: Ordered: 09/24/2022 OXIMETRY - NOCTURNAL OXIMETRY - NOCTURNAL Procedures Routine Chronic obstructive pulmonary disease, unspecified COPD type (HCC) Chronic hypoxemic respiratory failure (HCC) Ordered: 03/16/2022 [facility] Work Phone: Comment on above: Ordered: 03/16/2022 OXIMETRY - NOCTURNAL OXIMETRY - NOCTURNAL Procedures Routine Chronic obstructive pulmonary disease, unspecified COPD type (HCC) Chronic respiratory failure with hypoxia (HCC) Stage 3 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) Oxygen dependent Ordered: 08/01/2022 [facility] Work Phone: Comment on above: Ordered: 08/01/2022 End: 03-11-2023 OXIMETRY WITH AMBULATION OXIMETRY WITH AMBULATION PFT Routine Chronic obstructive pulmonary disease, unspecified COPD type (HCC) 1 Occurrences starting 02/09/2022 until 03/11/2023 [facility] Work Phone: Comment on above: 1 Occurrences starti ng 02/09/2022 until 03/11/2023 End: 06-28-2024 OXIMETRY WITH AMBULATION OXIMETRY WITH AMBULATION PFT Routine Chronic obstructive pulmonary disease, unspecified COPD type (HCC) Oxygen dependent 1 Occurrences starting 05/30/2023 until 06/28/2024 [facility] Work Phone: Comment on above: 1 Occurrences starti ng 05/30/2023 until 06/28/2024 Patient Education Coping with He art Failure [facility] Work Phone: Patient referral [facility] Work Phone: End: 03-10-2026 Polysomnogram POLYSOMNOGRAM (PSG) Procedures Routine Daytime sleepiness 1 Occurrences starting 03/10/2025 until 03/10/2026 [facility] Work Phone: Comment on above: 1 Occurrences starti ng 03/10/2025 until 03/10/2026 End: 10-28-2023 Radiologic exam chest 2 views XR CHEST 2V FRONTAL/LAT Radiology Routine COVID Bacterial sinusitis Chronic obstructive pulmonary disease, unspecified COPD type (HCC) 1 Occurrences starting 09/28/2022 until 10/28/2023 [facility] Work Phone: Comment on above: 1 Occurrences starti ng 09/28/2022 until 10/28/2023 Radiologic exam ches t 2 views XR CHEST 2V FRONTAL/LAT Radiology Routine COVID Bacterial sinusitis Chronic obstructive pulmonary disease, unspecified COPD type (HCC) 09/28/2022 1:22 PM EST [facility] Work Phone: End: 10-05-2023 Screening mammography bi 2-view breast inc cad ANUSHA SCREENING Radiology Routine Encounter for screening mammogram for breast cancer 1 Occurrences starting 09/05/2022 until 10/05/2023 [facility] Work Phone: Comment on above: 1 Occurrences starti ng 09/05/2022 until 10/05/2023 End: 03-11-2023 SPIROMETRY BASELINE ONLY SPIROMETRY BASELINE ONLY PFT Routine Chronic obstructive pulmonary disease, unspecified COPD type (HCC) 1 Occurrences starting 02/09/2022 until 03/11/2023 [facility] Work Phone: Comment on above: 1 Occurrences starti ng 02/09/2022 until 03/11/2023 SPIROMETRY BASELINE ONLY SPIROME TRY BASELINE ONLY PFT Routine Chronic obstructive pulmonary disease, unspecified COPD type (HCC) 03/16/2022 8:57 AM EDT [facility] Work Phone: Troponin T.cardiac [Mass/volume] in Serum or Plasma by High sensitivity method [facility] End: 06-10-2026 US Abdomen RUQ US ABD RIGHT UPPER QUADRANT Radiology Routine RUQ pain 1 Occurrences starting 05/11/2025 until 06/10/2026 [facility] Work Phone: Comment on above: 1 Occurrences starti ng 05/11/2025 until 06/10/2026 End: 09-29-2023 Us abdominal real time w/image limited US ABD SPLEEN Radiology Routine Cyst of spleen 1 Occurrences starting 08/30/2022 until 09/29/2023 [facility] Work Phone: Comment on above: 1 Occurrences starti ng 08/30/2022 until 09/29/2023 End: 04-12-2025 XR Chest PA and Lateral XR CHEST 2V FRONTAL/LAT Radiology Routine Chronic obstructive pulmonary disease, unspecified COPD type (HCC) Acute bronchitis with chronic obstructive pulmonary disease (COPD) (HCC) (HCC) 1 Occurrences starting 03/13/2024 until 04/12/2025 [facility] Work Phone: Comment on above: 1 Occurrences starti ng 03/13/2024 until 04/12/2025 XR Chest PA and Lateral [facility] Immunizations Immunization Date Immunization Notes Care Provider Lesvia maldonado 09-28-2024 influenza, high dose seasonal, preservative-free Maricruz Camp CHILD CARE CENTER ASSISTANT DIRECTOR.PRACTICE NURSE Work Phone: [facility] 09-28-2024 respiratory syncytia l virus (RSV) vaccine, bivalent (ABRYSVO) Maricruz Camp CHILD CARE CENTER ASSISTANT DIRECTOR.PRACTICE NURSE Work Phone: [facility] 09-28-2024 influenza virus vacc ine, unspecified formulation Sofi Garcia PA-C Work Phone: [facility] 08-15-2023 RSV Adult Recombinan t (Arexvy) Dr. Phuc Martines DO Work Phone: [facility] 08-14-2023 influenza (HD-IIV4) vaccine, age 65+ yr, high dose, quadrivalent, PF (FLUZONE HIGH-DOSE) Phuc Martines DO Work Phone: [facility] Work Phone: 08-14-2023 influenza virus vacc ine, unspecified formulation Diana Gonzalez MD Work Phone: [facility] 02-06-2023 pneumococcal (PCV20) vaccine, 20 valent (PREVNAR 20) Diana Gonzalez MD Work Phone: [facility] Work Phone: 08-01-2022 influenza, injectabl e, quadrivalent, contains preservative Phuc Martines DO Work Phone: [facility] Work Phone: 08-01-2022 influenza, injectabl e, quadrivalent, preservative free Dr. Phuc Martines DO Work Phone: [facility] 08-01-2022 influenza virus vacc ine, unspecified formulation Phuc Martines DO Work Phone: [facility] 08-15-2021 Covid (Pfizer) Dr. Phuc arevalo DO Work Phone: [facility] 08-15-2021 influenza, injectabl e, quadrivalent, preservative free Hodan Christine PA-C Work Phone: [facility] Work Phone: 01-03-2021 COVID-19 vaccine, ag e 12+ yr (PFIZER-BIONTECH - PURPLE TOP) Phuc Martines DO Work Phone: [facility] Work Phone: 12-15-2020 COVID-19 vaccine, ag e 12+ yr (PFIZER-BIONTECH - PURPLE TOP) Phuc Martines DO Work Phone: [facility] Work Phone: 07-06-2020 influenza, injectabl e, quadrivalent, contains preservative Phuc aMrtines DO Work Phone: [facility] Work Phone: 07-06-2020 influenza, injectabl e, quadrivalent, preservative free Dr. Phuc Martines DO Work Phone: [facility] 11-20-2019 zoster vaccine recombinant Phuc Martines DO Work Phone: [facility] Work Phone: 08-04-2019 influenza, injectabl e, quadrivalent, contains preservative Phuc Martines DO Work Phone: [facility] Work Phone: 08-04-2019 influenza, injectabl e, quadrivalent, preservative free Dr. Phuc Martines DO Work Phone: [facility] 08-30-2018 influenza, injectabl e, quadrivalent, contains preservative Phuc Martines DO Work Phone: [facility] 08-30-2018 influenza, injectabl e, quadrivalent, preservative free Dr. Phuc Martines DO Work Phone: [facility] 05-06-2018 zoster vaccine recombinant Phuc Martines DO Work Phone: [facility] Work Phone: 08-31-2017 influenza, injectabl e, quadrivalent, contains preservative Phuc Martines DO Work Phone: [facility] 08-31-2017 influenza, injectabl e, quadrivalent, preservative free Dr. Phuc Martines DO Work Phone: [facility] 05-06-2017 pneumococcal polysaccharide vaccine, 23 valent Phuc Martines DO Work Phone: [facility] 09-28-2016 pneumococcal conjuga te vaccine, 13 valent Phuc Martines DO Work Phone: [facility] 08-18-2016 influenza, injectabl e, quadrivalent, contains preservative Phuc Martines DO Work Phone: [facility] 08-18-2016 influenza, injectabl e, quadrivalent, preservative free Dr. Phuc Martines DO Work Phone: [facility] 08-01-2016 influenza, injectabl e, quadrivalent, preservative free Dr. Phuc Martines DO Work Phone: [facility] 11-09-2015 tetanus toxoid, redu benigno diphtheria toxoid, and acellular pertussis vaccine, adsorbed Phuc Martines DO Work Phone: [facility] Work Phone: 07-28-2015 influenza, injectabl e, quadrivalent, contains preservative Phuc Martines DO Work Phone: [facility] Work Phone: 07-28-2015 influenza, injectabl e, quadrivalent, preservative free Dr. Phuc Martines DO Work Phone: [facility] 08-05-2014 influenza, injectabl e, quadrivalent, preservative free Dr. Phuc Martines DO Work Phone: [facility] 08-05-2014 influenza, seasonal, injectable Phuc Perezrison DO Work Phone: [facility] 09-05-2013 influenza virus vacc ine, unspecified formulation Phuc Martines DO Work Phone: [facility] Work Phone: 11-12-2012 influenza virus vacc ine, unspecified formulation Phuc Martines DO Work Phone: [facility] 09-03-2011 influenza virus vacc ine, unspecified formulation Phuc Martines DO Work Phone: [facility] Work Phone: 08-15-2010 influenza virus vacc ine, unspecified formulation Phuc Martines DO Work Phone: [facility] Work Phone: 07-28-2009 influenza virus vacc ine, unspecified formulation Phuc Martines DO Work Phone: [facility] 07-07-2008 pneumococcal polysaccharide vaccine, 23 valent Phuc Martines DO Work Phone: [facility] 11-19-2005 tetanus toxoid, redu benigno diphtheria toxoid, and acellular pertussis vaccine, adsorbed Phuc Martines DO Work Phone: [facility] Work Phone: Payers Date Payer Category Payer Self-pay 2022 [facility] DICARE SUPPLEMENT [id number] 2022 Medicare supplementa l policy (as second payer) [employer] MEDIC[employer] SUPPLEMENT [id number] 2022 Medicare [id number] 2022 Medicare [id number] 2021 Unknown [employer] O JEAN MARIE [id number] 2021-Present [phone] [address] [place] [address] [facility] [id number] 2017 Unknown [id number] 2014 Unknown [id number] 1957 Unknown [id number] 1957 Unknown [id number] Unknown [id number] Unknown [id number] Unknown [id number] Unknown [id number] Unknown [id number] Unknown [id number] Unknown [id number] 9.2.462 Unknown [id number] 2.16840.1.113793.3.57 9.2.462 Unknown [id number] 2.16840.1.200315.3.57 9.2.462 Unknown [id number] 2.16.840.1.910211.3.57 9.2.462 Unknown [id number] 2.16.840.1.645271.3.57 9.2.462 Unknown [id number] 2.16.840.1.070165.3.57 9.2.462 Unknown [id number] 2.16840.1.821608.3.57 9.2.462 Unknown [id number] 2.16.840.1.132447.3.57 9.2.462 Unknown [id number] 2.16.840.1.056307.3.57 9.2.462 Unknown [id number] 2.16.840.1.864513.3.57 9.2.462 Unknown [id number] 2.16.840.1.728843.3.57 9.2.462 Unknown [id number] 2.16.840.1.242309.3.57 9.2.462 Unknown [id number] 2.16.840.1.220756.3.57 9.2.462 Unknown [id number] 2.16.840.1.344440.3.57 9.2.462 Unknown [id number] 2.16.840.1.922020.3.57 9.2.462 Unknown [id number] 2.16.840.1.627249.3.57 9.2.462 Unknown [id number] 2.16.840.1.884415.3.57 9.2.462 Unknown [id number] 2.16.840.1.132099.3.57 9.2.462 Unknown [id number] 2.16.840.1.776458.3.57 9.2.462 Unknown [id number] 2.16.840.1.116929.3.57 9.2.462 Unknown [id number] 2.16.840.1.360429.3.57 9.2.462 Unknown [id number] 2.16.840.1.421609.3.57 9.2.462 Unknown [id number] 2.16.840.1.131122.3.57 9.2.462 Social History Date Type Detail Facility Start: 06-22-2022 End: 06-24-2025 Tobacco smoking status VTIS Ex-smoker [facility] Work Phone: Start: 1971 End: 12-20-2008 History of tobacco use Current smoker [facility] Start: 1971 End: 12-20-2008 History of tobacco use Cigarette Smoker [facility] Start: 01-30-2022 End: 06-04-2025 Alcohol intake Current drinker of alcohol (finding) [facility] Start: 05-28-2020 End: 09-02-2020 History SDOH Alcohol Frequency 5 [facility] Start: 09-02-2020 End: 10-30-2021 History SDOH Alcohol Std Drinks 2 [facility] Start: 11-14-2019 End: 05-28-2020 History SDOH Social Connections Get Together 3 [facility] Start: 05-28-2020 History SDOH Social Connections [facility] 98 [facility] Start: 11-14-2019 History SDOH Physica l Activity DPW 7 [facility] Start: 11-14-2019 End: 10-30-2021 History SDOH Physical Activity MPS 1 [facility] Start: 11-14-2019 Education 21 [facility] Start: 08-02-2015 End: 06-22-2022 Tobacco Comment Parents smoked in childhood home. Spouse smokes, not in home. [facility] Start: 1955 Sex Assigned At Female C [facility] Start: 12-11-2020 End: 09-28-2022 Exposure to SARS-CoV-2 (event) Not sure [facility] Work Phone: Start: 10-02-2020 End: 06-22-2022 Cigarettes smoked current (pack per day) - Reported 1 [facility] Work Phone: Start: 06-22-2022 End: 06-26-2024 Tobacco use and exposure Smokeless tobacco non-user [facility] Start: 10-02-2020 End: 02-06-2023 Tobacco use panel [facility] Work Phone: Start: 09-28-2012 Adult Depression Screening Assessment 0 [facility] Work Phone: Start: 05-28-2020 Gender identity Identifies as female gender (finding) [facility] Start: 05-28-2020 Sexual orientation Heterosexual (fin ding) [facility] How often to you hav e a drink containing alcohol? 4 or more times a week [facility] Work Phone: How many standard drinks containing alcohol do you have on a typical day? 3 or 4 [facility] Work Phone: How often do you hav e 6 or more drinks on 1 occasion? Less than monthly [facility] Work Phone: Do you feel stress - tense, restless, nervous, or anxious, or unable to sleep at night because your mind is troubled all the time - these days [OSQ] Only a little [facility] (I/We) worried whefletcher er (my/our) food would run out before (I/we) got money to buy more. Never true [facility] Work Phone: In the past 12 month s, was there a time when you were not able to pay the mortgage or rent on time? No [facility] Are you now , , , , never or living with a partner? [facility] How often do you hav e 6 or more drinks on 1 occasion? Weekly [facility] How hard is it for y ou to pay for the very basics like food, housing, medical care, and heating Not very hard [facility] Start: 04-15-2017 Heavy Heavy [facility] Start: 04-15-2017 None None [facility] Start: 04-15-2017 Spouse/ Significant Other Spouse/ Significant Other [facility] Start: 04-15-2017 Non-smoker Non-smoker [facility] Start: 02-23-2025 End: 04-06-2025 Sex Female (finding) [facility] Start: 04-06-2025 Alcohol Comment 4-5 mixed drinks per day [facility] Start: 1955 Sex assigned at Not on file [facility] Health Goals Date Patient Goal Desired Activity /State Functional Status Date Assessment Result Facility 05-17-2025 Functional status Ambulates;August r;Bathroom Privilege [facility] Work Phone: 04-27-2025 Functional status Ambulates [facility] Work Phone: 02-23-2025 Functional status Ambulates [facility] Work Phone: 05-09-2015 Are you deaf, or do you have serious difficulty hearing No 05/09/2015 3:40 PM EDT Carolina Horner Cma No [facility] 05-09-2015 Are you blind, or do you have serious difficulty seeing, even when wearing glasses No 05/09/2015 3:40 PM EDT Carolina Horner Cma No [facility] 05-09-2015 Do you have serious difficulty walking or climbing stairs No 05/09/2015 3:40 PM EDT Carolina Horner Cma No [facility] 05-09-2015 Do you have difficul ty dressing or bathing No 05/09/2015 3:40 PM EDT Carolina Horner Cma [facility] 05-09-2015 Because of a physica l, mental, or emotional condition, do you have difficulty doing errands alone such as visiting a physician's office or shopping No 05/09/2015 3:40 PM EDT Carolina Horner Cma [facility] Mental Status Date Assessment Result Facility 05-17-2025 Cognitive function Voice/Name [facility] Work Phone: 04-27-2025 Cognitive function Voice/Name [facility] Work Phone: 04-23-2025 Cognitive function Voice/Name [facility] Work Phone: 02-23-2025 Cognitive function Voice/Name [facility] Work Phone: 05-09-2015 Because of a physica l, mental, or emotional condition, do you have serious difficulty concentrating, remembering, or making decisions No 05/09/2015 3:40 PM EDT Carolina Horner Cma [facility] Clinical Notes 05-19-2019 to 08-11-2025 Anne Marie Gonzalez, [place] - 06/21/2025 3:26 PM EDTTelephone Encounter - [place] LPN - 06/21/2025 8:52 AM EDTTelephone Encounter - [place] LPN - 06/21/2025 8:52 AM EDT Note Date & Type Note Facility 08-11-2025 Note HNO ID: [id number] Author: YAJAIRA ROBERSON MD Service: ? Author Type: Physician Type: Progress Notes Filed: 08/11/2025 09:58 Note Text: HISTORY AND PHYSICAL Rajendra Lucero 1955 REFERRING PHYSICIAN: Phuc Martines DO CHIEF COMPLAINT: Consult (Cysts in spleen. PCP sent for consult) HPI: Linwood is a 69-year-old female presenting for evaluation of splenic cysts. Linwood was referred by her PCP, Dr. Martines, after imaging revealed splenic cysts. She reports a colonoscopy performed by Dr. Burton in October or November, but does not recall the exact date. She expresses concern about the possibility of cancer and whether the cysts could be growing or increasing in number. She is up to date on pneumococcal and COVID vaccines, has received the influenza vaccine, and plans to receive the RSV vaccine in 2 weeks as advised by her PCP. The patient is being seen by me today at the request of Dr. Phuc Martines DO for my opinion and advice regarding Cyst of spleen. PAST MEDICAL HISTORY Diagnosis Date Atrial flutter (HCC) CHF (congestive heart failure) (HCC) Chronic atrial fibrillation (HCC) 07/26/2025 Chronic hypoxemic respiratory failure (HCC) COPD (chronic obstructive pulmonary disease) (HCC) 02/03/2010 Coronary artery disease No UT, CHF. No heart cath. Diverticulosis of colon [...] WISDOM TEETH Current Outpatient Medications Medication Sig potassium chloride ER (KLOR-CON) 20 mEq tablet Take 1 tablet by mouth three times a day. furosemide (LASIX) 40 mg tablet Take 1 tablet by mouth two times a day. roflumilast (DALIRESP) 250 mcg tablet Take 1 tablet by mouth once daily. dilTIAZem CD (CARDIZEM CD, CARTIA XT) 180 mg 24 hr capsule Take 1 capsule by mouth every 12 hours. atorvastatin (LIPITOR) 40 mg tablet Take 40 mg by mouth once daily. FARXIGA 10 mg tablet Take 10 mg by mouth every morning. apixaban (ELIQUIS) 5 mg tab(s) Take 5 mg by mouth two times a day. metoprolol tartrate, short acting, (LOPRESSOR) 50 mg tablet Take 50 mg by mouth two times a day. mecobalamin (B12 ACTIVE ORAL) Take 1,000 mcg by mouth once daily. cinnamon bark (CINNAMON ORAL) Take by mouth once daily. albuterol HFA (PROVENTIL HFA, VENTOLIN HFA) 90 mcg/actuation inhaler Inhale 2 Puffs as instructed every 6 hours as needed for wheezing/shortness of breath. wtyttxyjmhl-pfwjfdniv-ekjieyog (TRELEGY ELLIPTA) 200-62.5-25 mcg inhalation powder Inhale [...] diagnosis: J44.9. Dispense: 1 each, Refills: 99. COMPOUNDED PRESCRIPTION 3.5L of O2 at night and 6L with exertion. multivitamin tablet Take 1 tablet by mouth once daily. ASCORBIC ACID/BIOFLAVONOIDS (SIVAN C ORAL) Take 1 capsule by mouth once daily. No current facility-administered medications for this visit. ALLERGIES: Aleve [Naproxen] and Nitrofurantoin PERSONAL HISTORY: SOCIAL HISTORY[1] FAMILY HISTORY: FAMILY HISTORY Problem Relation Age of Onset Cancer Father BLADDER COPD Mother other (Alcoholic) Mother associated with sepsis. Hypertension Maternal Grandmother Thyroid Maternal Grandmother REVIEW OF SYMPTOMS: The review of systems data was entered by the nurse and reviewed by me There are no exam notes on file for this visit. PHYSICAL EXAMINATION: General: The patient is 69 year old female, well nourished, well hydrated in no acute distress. The patient is oriented to time, place, and person. VITALS: There were no vitals taken for this visit. HEENT: Normal cephalic, ataumatic, pupils are equally round, sclera are anicteric, mucous membranes are moist, oropharynx is clear. Neck has no masses, asymmetry or lymphadenopathy. Thyroid is unremarkable. Respiratory: Clear to auscultation and percussion. Normal respiratory excursion and pattern. Cardiac: Examination is (more content not included)... [facility] 08-10-2025 Note HNO ID: [id number] Author: JR CHOU RN Service: ? Author Type: Registered Nurse Type: Progress Notes Filed: 08/11/2025 09:58 Note Text: REVIEW OF SYSTEMS: General: The patient notes fatigue, denies weight loss, denies weight gain, denies feeling hot, and denies feelings of cold. Eyes: The patient denies glaucoma, denies eye injury/surgery, wears glasses or contacts. Ear/Nose/Throat: The patient denies allergies, denies hayfever, denies ear infections, and denies bloody noses. Cardiovascular: The patient denies chest pain, denies heart disease, notes high blood pressure,denies cardiac stent, denies prior heart attack, notes irregular heart beat, notes high cholesterol, denies poor circulation, denies heart failure, other cardiac issues, denies claudication, denies cold feet, denies peripheral arterial stent. Respiratory: The patient denies tuberculosis, denies pneumonia, denies frequent cough, denies pulmonary embolism, notes shortness of breath, and denies coughing up blood. Gastrointestinal: The patient denies difficulty swallowing, denies acid reflux, denies ulcers, denies vomiting, denies jaundice/hepatitis, denies gallbladder problems, denies black or tarry stools, denies hemorrhoids, denies bleeding from rectum, denies diverticulitis, denies constipation, denies diarrhea, denies loss of stool control, and denies hernias. Kidney/Bladder: The patient denies kidney stones, denies urine infections, and denies bloody urine. Skin: The patient denies a history of skin cancer, denies bleeding/changing moles, and denies a history of skin rash. Neurologic: The patient denies a history of epilepsy/convulsions, denies headaches, denies head/spinal injuries, and denies stroke/TIA. Psychiatric: The patient denies psychiatric medications, denies depression, and denies voices, denies substance abuse. Endocrine: The patient denies thyroid disorders, denies diabetes, and denies hormonal problems. Hematologic: The patient denies a history of bruising, denies bleeding, and denies anemia, denies blood clots. Infections: The patient denies a history of measles and mumps, denies rheumatic fever, and denies sexually transmitted diseases. Musculoskeletal: The patient denies back pain/injury, denies back problems, denies sciatica, denies knee/foot trouble, denies arthritis, or denies gout. When was patient's last Mammogram screening? 2023 Last Colonoscopy: Jr Chou RN [facility] 08-10-2025 Note HNO ID: [id number] Author: IRMA KEVIN HUC Service: ? Author Type: Mig Welder Type: Progress Notes Filed: 08/10/2025 11:21 Note Text: [facility] LUNG CANCER SCREENING FOLLOWUP ADVANCED: Diagnosis: Lung Nodule Recommendation: CT Scan Follow Up Due Date: 11/04/2025 All Follow Up Scheduled: Yes Pulmonary Follow Up Type: Lung Nodule Surveillance Patient should be added to the Lung Cancer Screening Followup Report: No Lung Cancer Screening Program Location: [facility] 08-10-2025 Note Patient Outreach (PU LMMN) RAJENDRA LUCERO ([id number]) 1955 F Date Time Provider Department 08/10/25 IRMA KEVIN During your visit today, we recorded the following information about you: Irma Kevin HUC 08/10/2025 11:21 AM Signed [facility] POP LUNG CANCER SCREENING FOLLOWUP ADVANCED: Diagnosis: Lung Nodule Recommendation: CT Scan Follow Up Due Date: 11/04/2025 All Follow Up Scheduled: Yes Pulmonary Follow Up Type: Lung Nodule Surveillance Patient should be added to the Lung Cancer Screening Followup Report: No Lung Cancer Screening Program Location: [facility] Allergies As of Date: 08/10/2025 Noted Allergy Reaction ALEVE (NAPROXEN) 05/31/2020 4 - Hives Comments: Hives, edema of hands within 1 hour of use NITROFURANTOIN 04/23/2025 2 - Rash Date Reviewed: 08/10/2025 Reviewed by: Jr Chou, RN - Fully Assessed Prescriptions as of 08/10/2025 - potassium chloride ER (KLOR-CON) 20 mEq tablet Take 1 tablet by mouth three times a day. - furosemide (LASIX) 40 mg tablet Take 1 tablet by mouth two times a day. - roflumilast (DALIRESP) 250 mcg tablet Take 1 tablet by mouth once daily. - dilTIAZem CD (CARDIZEM CD, CARTIA XT) 180 mg 24 hr capsule Take 1 capsule by mouth every 12 hours. - atorvastatin (LIPITOR) 40 mg tablet Take 40 mg by mouth once daily. - FARXIGA 10 mg tablet Take 10 mg by mouth every morning. - apixaban (ELIQUIS) 5 mg tab(s) Take [...] as needed for wheezing/shortness of breath. - gtymlgxpmfm-awwyvreor-xwscsljf (TRELEGY ELLIPTA) 200-62.5-25 mcg inhalation powder Inhale 1 Puff as instructed once daily. - triamcinolone acetonide (KENALOG) 0.5 % cream [...] at night and 6L with exertion - COMPOUNDED PRESCRIPTION Please dispense nebulizer and supply kit, including tubing, mouth piece, and hose. Assoc diagnosis: J44.9. Dispense: 1 each, Refills: 99. - ASCORBIC ACID/BIOFLAVONOIDS (SIVAN C ORAL) Take 1 capsule by mouth once daily. - COMPOUNDED PRESCRIPTION 3.5L of O2 at night and 6L with exertion. - multivitamin tablet Take 1 tablet by mouth once daily. Problem List As Of Date 08/10/2025 Noted Resolved BENIGN HYPERTENSION [I10] 07/07/2008 Tobacco [...] [Z12.11] 08/27/2018 10/13/2019 Actinic keratosis [L57.0] 05/19/2019 Medicare annual wellness visit, subsequent [Z00*05/19/2019 Chronic respiratory failure with hypoxia (HCC) *10/13/2019 Lightheaded [R42] 01/30/2022 Vitamin D deficiency [E55.9] 01/30/2022 Dyslipidemia [E78.5] 01/30/2022 Intertrigo [L30.4] 05/01/2022 Chronic obstructive pulmonary disease (HCC) [J4*02/07/2023 Acute bronchitis with chronic obstructive pulmo*03/13/2024 Fatigue [R53.83] 03/13/2024 Thoracic aortic ectasia (HCC) [I77.810] 03/13/2024 Hair thinning [L65.9] 01/20/2025 Chronic atrial fibrillation (HCC) [I48.20] 07/26/2025 Paroxysmal atrial fibrillation (HCC) [I48.0] 07/26/2025 IFG (impaired fasting glucose) [R73.01] 07/26/2025 Iron deficiency [E61.1] 07/26/2025 Essential (primary) hypertension [I10] 07/26/2025 Brain fog [R41.89] 07/26/2025 Hypokalemia [E87.6] 07/26/2025 Encounter Status:Closed by IRMA KEVIN on 08/10/25 [facility] 08-04-2025 Note HNO ID: [id number] Author: RAJENDRA GOODMAN APRN.PRACTICE NURSE Service: ? Author Type: Nurse Practitioner Type: Progress Notes Filed: 08/04/2025 10:29 Note Text: Pulmonary Medicine Patients name: Rajendra Palumbo PCP: Phuc Martines DO Recording using [employer] software for draft documentation of the visit was discussed with the patient/authorized guest services representative; all questions welcomed and answered. Patient/authorized guest services representative agreed to proceed CC: follow-up HPI: Rajendra Lucero is a 69 year old female former [id number] smoker, quitting in 2008 with PMH significant for morbid obesity, severe COPD, chronic hypoxemic and hypercapnic respiratory failure, CAD, HTN, and ROXY. ABRAHAM 06/04 for hospital follow-up. She was hospitalized for CHF/COPD and was found to have severe hypercapnic respiratory failure. Started on NIV after last visit. Current therapy consists of Trelegy Ellipta with as needed albuterol/Duoneb and Daliresp. On supplemental O2. She presents today for follow-up. Since her last visit, she was able to be discharged home from rehab after her prior hospitalization. Was able to start on NIV. Initially had trouble with the fit of the mask but found one that is working well for her. Reports there hasn't been much change in her sleep quality, continues to wake up at night on occasion. Today, she states her oxygen levels have been stable and has not had further respiratory infections. No further hospitalizations. She notes a slightly worse cough d/t PND but not bothersome. No wheezing or chest tightness. No dyspnea at rest. Exertional dyspnea overall is better. No fevers, chills, or night sweats. No recent hospitalizations or ED visits or upper respiratory infections. Duoneb use is rare, once a month. Occasionally pre-treats with albuterol prior to activity. DME: [facility] 3.5 L at rest/nocturnal and 6L with activity [employer]: NIV PAST MEDICAL HISTORY Diagnosis Date Atrial flutter (HCC) CHF (congestive heart failure) ([facility]) Chronic atrial fibrillation ([facility]) 07/26/2025 Chronic hypoxemic respiratory failure (HCC) COPD (chronic obstructive pulmonary disease) ([facility]) 02/03/2010 Coronary artery disease No UT, CHF. No heart cath. Diverticulosis of colon (without mention of hemorrhage) Essential hypertension, benign Fibrocystic breast Former smoker Internal hemorrhoids without mention of complication Leiomyoma of uterus, unspecified Obstructive sleep apnea Mild. Not prescribed CPAP, only 2L nasal O2. Allergies: Aleve [Naproxen] Hives Comment:Hives, edema of hands within 1 hour of use Nitrofurantoin Rash Medication List Accurate as of August 04, 2025 8:04 AM. If you have any questions, ask your nurse or doctor. CONTINUE taking these medications albuterol HFA 90 mcg/actuation inhaler Commonly known as: PROVENTIL HFA, VENTOLIN HFA Inhale 2 Puffs as instructed every 6 hours as needed for wheezing/shortness of breath. apixaban 5 mg tab(s) Commonly known as: ELIQUIS atorvastatin 40 mg tablet Commonly known as: LIPITOR B12 ACTIVE PO CINNAMON PO COMPOUNDED PRESCRIPTION COMPOUNDED PRESCRIPTION Please dispense nebulizer and supply kit, including tubing, mouth piece, and hose. Assoc diagnosis: J44.9. Dispense: 1 each, Refills: 99. dilTIAZem CD 180 mg 24 hr capsule Commonly known as: CARDIZEM CD, CARTIA XT SIVAN C ORAL FARXIGA 10 mg tablet Generic drug: dapagliflozin propanediol furosemide 40 mg tablet Commonly known as: LASIX Take 1 tablet by mouth two times a day. ipratropium-albuterol 0.5 mg-3 mg(2.5 mg base)/3 mL Nebu Commonly known as: DUONEB Inhale 3 mL as instructed four times daily. Inhale via nebulizer over 5-15 minutes. metoprolol tartrate (short acting) 50 mg tablet Commonly known as: LOPRESSOR multivitamin tablet OXYGEN (HOME THERAPY) 3.5L at night and 6L with exertion potassium chloride ER 20 mEq tablet Commonly known as: KLOR-CON Take 1 tablet by mouth three times a day. roflumilast 250 mcg tablet Commonly known as: DALIRESP Take 1 tablet by mouth once daily. TRELEGY ELLIPTA 200-62.5-25 mcg inhalation powder Generic drug: hprhynxbitx-daocogugt-qkpbrtrs Inhale 1 Puff as instructed once daily. triamcinolone acetonide 0.5 % cream Commonly known as: KeNALog Apply 1 application to affected area two times a day as needed (foot rash, eczema). For rash/itching. Apply sparingly. Avoid face/skin fold. DATA: I personally reviewed and analyzed all labs, radiographs and available pulmonary function testing PFT: 02/2022 Spirometry indicates very severe obstruction. CT Chest: OSH 04/2025 Vaccines: Influenza: 07/23/25 Prevnar 20: 01/2023 Review of Systems Constitutional: Negative for activity change, appetite change, fever and unexpected weight change. HENT: Positive for postnasal drip. Negative for congestion, mouth sores and sinus pain. Respiratory: Positive for cough and sh (more content not included)... [facility] 07-29-2025 Note HNO ID: [id number] Author: BRANDYN CARRASCO APRN.PRACTICE NURSE Service: ? Author Type: Nurse Practitioner Type: Progress Notes Filed: 07/29/2025 12:10 Note Text: [facility] Lung Cancer Screening 6 month follow up Chief Complaint: Established patient in lung cancer screening program here for a 6 month follow up visit. PRIMARY CARE PHYSICIAN: Phuc Martines DO PULMONARY PROVIDER: Dr. Gonzalez COMMERCIAL BAKER HELPER: Dr. Elena Current or Ex-smoker? [Ex] Exam Type: Follow - Up LDCT Number of Pack Years: 38 Number of Years since Quit: 15 [facility] LUNG CANCER SCREENING FOLLOWUP ADVANCED: Diagnosis: Lung Nodule Recommendation: CT Scan Follow Up Due Date: 11/04/2025 All Follow Up Scheduled: Yes Pulmonary Follow Up Type: Lung Nodule Surveillance Patient should be added to the Lung Cancer Screening Followup Report: Yes Lung Cancer Screening Program Location[place] Impression / Recommendations Rajendra Lucero presents for 6 month follow up lung cancer screening exam and nodule evaluation. 1. Lung nodules (R91.8) - Recent CT lung screening on 07/29/2025 revealed a new area of nodularity, likely inflammatory in nature; previously observed nodular consolidation in the right middle lobe remains stable. 2. Encounter for screening for malignant neoplasm of respiratory organs (Z12.2) - Order repeat CT scan in 3 months to monitor new nodular area. - Educated patient on the likely inflammatory nature of the new nodules and the importance of follow-up imaging to ensure resolution. 3. Personal history of nicotine dependence (Z87.891) - No current tobacco, marijuana, or vaping use. 4. Coronary artery calcification seen on CAT scan (I25.10) - Mild coronary artery calcifications noted on previous CT scan; patient is currently on Lipitor. 5. Chronic hypoxemic respiratory failure (HCC) (J96.11) - Patient on 3.5 L O2 at rest and 6 L O2 with exertion. - No increase in baseline dyspnea, chest tightness, cough, or wheezing. - Recent hospitalization end of May for hypoxemia and pneumonia, treated with steroids and antibiotics. I spent a total of 41 minutes on the date of the service which included preparing to see the patient, [id number] patient care, completing clinical documentation, obtaining and/or reviewing separately obtained history, performing a medically appropriate examination, counseling and educating the patient/family/caregiver, ordering medications, tests, or procedures, communicating with other HCPs (not separately reported), and independently interpreting results (not separately reported). BRANDYN CARRASCO, JAKI.[facility] History of Present Illness: Recording using [employer] software for draft documentation of the visit was discussed with the patient/authorized guest services representative; all questions welcomed and answered. Patient/authorized guest services representative agreed to proceed The patient is a 69-year-old female with COPD on home oxygen, presenting for 6-month follow-up of lung cancer screening. Patient will continue to be eligible for lung cancer screening through 15 yrs smoke free OR age 80 per USPTF guidelines (however if patient has Medicare/Medicaid, only eligible through age 77)-- whichever occurs first. Respiratory symptoms include: Recent Respiratory Infection: Yes SOB: Yes Chest tightness: No Coughing: Yes: Without mucus Hemoptysis: No Wheezing: No Fever/Chills: No Unintentional weight loss: No Lung Cancer Screening: - 28-gbih-epoi smoking history; quit 15 years ago. - No history of malignancy or family history of lung cancer. - CT lung screen on 01/25/2025 showed a previous nodular consolidation in the right middle lobe that had mostly disappeared with minimal residual scar-like opacity. - Mild coronary artery calcifications; taking Lipitor. - No current tobacco, marijuana, or vaping use. - No known autoimmune diseases or use of immunosuppressants. - No recent respiratory infections. - Denies chest tightness, wheezing, regular fevers, chills, or unintentional weight loss. - Occasional cough associated with sinus drainage; denies hemoptysis or productive cough. COPD: - Follows with Dr. Diana Gonzalez. - On portable oxygen: 3.5 L/min at rest, 6 L/min during exertion. - Denies increased dyspnea. - Dyspnea after walking about 100 yards or after a few minutes on level ground. - Occasionally gets winded when dressing. - Capable of all self-care but unable to carry out work activities; not confined to a bed or chair. Atrial Fibrillation: - Diagnosed in January after experiencing pedal edema. - Underwent cardioversion in May by Dr. Elena, conversion worker at [facility]. - Currently in normal sinus rhythm. Modified Medical Research Te-Moak Dyspnea Scale (MMRC): I am too breathless to leave the house or I am breathless when dressing 4 (more content not included)... [facility] 07-29-2025 Note HNO ID: [id number] Author: PITO GALAVIZ, RT(R) Service: ? Author Type: Gravity Meter Observer Type: Progress Notes Filed: 07/29/2025 13:08 Note Text: Radiology Service Progress Note PATIENT NAME: Rajendra Lucero DATE OF SERVICE: July 29, 2025 TIME: 1:07 PM PATIENT IDENTITY VERIFICATION COMPLETED USING TWO [...] PATIENT PRESENTS WITH AN IMPLANTABLE OR ATTACHED DEPUTY SHERIFF LIEUTENANT: No RADIOLOGY DEPARTMENT: CT; Exam(s) Completed: Lung Screening. Anesthesia: No PERIPHERAL IV DATA: Not applicable SIGNED BY: RT Flower(R) July 29, 2025 1:07 PM [facility] 07-26-2025 Note HNO ID: [id number] Author: JEANINE BENITEZ RDMS Service: ? Author Type: Rubber Stamp Dies Inspector Type: Progress Notes Filed: 07/26/2025 14:39 Note Text: Radiology Service Progress Note PATIENT NAME: Rajendra Lucero DATE OF SERVICE: July 26, 2025 TIME: 2:39 PM PATIENT IDENTITY VERIFICATION COMPLETED USING TWO [...] PATIENT PRESENTS WITH AN IMPLANTABLE OR ATTACHED DEPUTY SHERIFF LIEUTENANT: No RADIOLOGY DEPARTMENT: Ultrasound PERIPHERAL IV DATA: Not applicable SIGNED BY: Jeanine Benitez RDMS RVT July 26, 2025 2:39 PM [facility] 07-23-2025 Note HNO ID: [id number] Author: PHUC MARTINES, Service: ? Author Type: Physician Type: Progress Notes Filed: 07/26/2025 08:18 Note Text: CC: Rajendra Lucero is a 69 year old female who presents to the office for follow up HPI: HTN, recently controlled, no further dizziness. No chest pain/pressure. Has chronic dyspnea. No new edema or SINHA's or syncope symptoms. IFG, dyslipidemia, knows needs to work on weight loss efforts, is currently diet controlled She has had a lot of stress with her passing away recently and wondering is this affected her. Feels she is coping okay. Has support from her children- in the last 6 months her daughter has moved in with her to help her. COPD oxygen dependent, stage 3, chronic hypoxia, seeing Protection Analyst- using her inhalers as prescribed. Was in the hospital recently a few months ago for flare up of symptoms Atrial fibrillation, recently diagnosed, seeing and managed by Marine Cargo Specialist, no new symptoms. She is taking Eliquis medication as prescribed without bleeding SE Has some fatigue symptoms and brain fog symptoms PAST MEDICAL HISTORY Diagnosis Date Atrial flutter (HCC) CHF (congestive heart failure) (HCC) Chronic hypoxemic respiratory failure (HCC) COPD (chronic obstructive pulmonary disease) (HCC) 02/03/2010 Coronary artery disease No UT, CHF. No heart cath. Diverticulosis of colon [...] IMPACTED TOOTH - COMPLETELY BONY WISDOM TEETH Social History: SOCIAL HISTORY[1] FAMILY HISTORY Problem Relation Age of Onset Cancer Father BLADDER COPD Mother other (Alcoholic) Mother associated with sepsis. Hypertension Maternal Grandmother Thyroid Maternal Grandmother Current Outpatient prescriptions: potassium chloride ER (KLOR-CON) 20 mEq tablet Take 1 tablet by mouth three times a day. furosemide (LASIX) 40 mg tablet Take 1 tablet by mouth two times a day. roflumilast (DALIRESP) 250 mcg tablet Take 1 tablet by mouth once daily. dilTIAZem CD (CARDIZEM CD, CARTIA XT) 180 mg 24 hr capsule Take 1 capsule by mouth every 12 hours. atorvastatin (LIPITOR) 40 mg tablet Take 40 mg by mouth once daily. FARXIGA 10 mg tablet Take 10 mg by mouth every morning. apixaban (ELIQUIS) 5 mg tab(s) Take 5 mg by mouth two times a day. metoprolol tartrate, short acting, (LOPRESSOR) 50 mg tablet Take 50 mg by mouth two times a day. mecobalamin (B12 ACTIVE ORAL) Take 1,000 mcg by mouth once daily. cinnamon bark (CINNAMON ORAL) Take by mouth once daily. albuterol HFA (PROVENTIL HFA, VENTOLIN HFA) 90 mcg/actuation inhaler Inhale 2 Puffs as instructed every 6 hours as needed for wheezing/shortness of breath. lmpkfenwdkl-wboblpsce-xbzxnrhf (TRELEGY ELLIPTA) 200-62.5-25 mcg inhalation powder Inhale [...] Take 1 tablet by mouth once daily. Allergies: ALLERGIES Allergen Reactions Aleve [Naproxen] Hives Hives, edema of hands within 1 hour of use Nitrofurantoin Rash ROS: See HPI PE: 07/23/25 1157 BP: 110/60 Pulse: 64 Resp: 24 Temp: 36.1 ?C (97 ?F) TempSrc: Right Tympanic Weight: 109.8 kg (242 lb) Gen: AANDOX3, NAD, non-toxic appearing HEENT: PERRLA, [...] edema, varicose veins present Abd: soft, overweight/obese ASSESS (more content not included)... [facility] 06-24-2025 Procedure note [facility] 06-21-2025 Note HNO ID: [id number] Author: ANNE MARIE GONZALEZ MA Service: ? Author Type: Real Estate Leasing Manager Type: Progress Notes Filed: 06/21/2025 16:08 Note Text: NURSING HOME FACILITY (SNF) TRANSITIONAL CARE MANAGEMENT (TCM) POST-ACUTE CARE (PAC) PROGRAM Transitions Navigator Outreach Provider Action/FYI:snf discharge 06/18/25 Reason for hospitalization: ?CHF exacerbation ?COPD exacerbation ?Acute on chronic hypoxic respiratory failure [facility] note: Pt states she is doing better. Pt states there were no med changes. Pt states daughter moved in with her to assist with care. Pt has a NIV machine. Pt states her 02 concentrator that does not connect to NIV properly. Both parts are from different medical supply companies. [facility]-NIV machine Oxygen concentrator [employer] sent left message for PCP Team to call them regarding order (oxygen concentrator.) Pt also sent mychart. Sent and FYI via chat to view mychart Pt is not using a device to assist with mobility. Pt has a walker if needed. Pt has appt 07/23/25 with PCP. I offered an earlier appt with Pac SACHI for TCM, Program Details Post Acute Care Status: Enrolled Effective Dates: 06/21/2025 - present Responsible Staff: Anne Marie Gonzalez MA Support and Services: Post-SNF Transition Support TYPE OF OUTREACH: PAC TCM Initial Outreach Transition from: [facility] (SNF) Hi my name is Anne Marie Gonzalez MA and I am calling from the [facility] on behalf of your PCP, Phuc Martines DO, at [facility] [[id number]] We know that there can be many moving parts when transitioning home from a nursing facility. Our goal is to make sure you are doing well and that nothing slips through the cracks during this transition in regard to your care and you experience a safe recovery. Do you have a few minutes to update me on how you've been doing? Yes Contact with patient post discharge, spoke to patient. Patient identified by name and . Ask patient if there is a family member we have permission to speak with. If so, please confirm and document in the Contacts section in Demographics. Ask patient if they would like the family member to participate in this call or future calls. PATIENT HEALTH STATUS I am calling to see how you're feeling now that you're home. Do you feel BETTER, WORSE, or the SAME since leaving -- ([facility]. [phone]) ? Better ACTION TAKEN: Patient reports Better or Same - No action required - Continue outreach. MEDICATIONS Were there any changes made to your medications during your recent hospital or nursing facility stay? no Did the team(s) there review those changes with you and the reasons why they were made? Yes Do you have any questions about taking your medications or which medication you should be on? No Do you need any medication refills at this time, including any of the medications you might take only when needed? No ACTION TAKEN: No - No action required DISCHARGE INSTRUCTIONS Your discharge instructions talk about diaz tasks and behaviors that can help you through the recovery process. Do you have any question of what you need to do to safely recover and manage your health at home? No ACTION TAKEN: No - No action required Do you have all the necessary equipment and supplies at home? Yes ACTION TAKEN: Yes - Patient has the necessary equipment and supplies - no action required Determine if the patient was ordered Home Care services upon transition. Was patient ordered Home Care services? Yes ACTION TAKEN: No - Home care not needed/ordered - no action required APPOINTMENTS A visit with your primary and/or specialty care doctor(s) is a great way for you to connect with a provider to ensure you have safely transitioned home. This will also give you an opportunity to ask any questions or address any concerns you may have directly with your provider. This appointment can be completed through a virtual visit or in-person appointment.? Appointments for Next 60 Days Date Time Provider Location Dept Phone 07/23/2025 12:00 PM PHUC MARTINES [facility] [phone] 07/29/2025 10:40 AM CATE [facility] WSTR (I-STAT) Shefali Messer [phone] 07/29/2025 11:00 AM BRANDYN CARRASCO [phone] 08/04/2025 10:00 AM RAJENDRA GOODMAN Sride[facility] Messer [phone] Does patient have an appointment scheduled? No - Patient does not have an appointment and declines to schedule. Inform the patient that if they change their mind, to please call you back directly and you will assist them with scheduling. Provide direct phone number. ACTION TAKEN: No action required - patient declines appointment SOCIAL We would like to make sure you have what you need so that your basic wishes are met - including your personal safety, food, housing, and/or desire to be connected to community resources. Would you like to speak with a soci (more content not included)... [facility] 06-21-2025 History of Presen t illness Narrative NURSING HOME FACILITY (SNF) TRANSITIONAL CARE MANAGEMENT (TCM) POST-ACUTE CARE (PAC) PROGRAM Transitions Navigator Outreach Provider Action/FYI:snf discharge 06/18/25 Reason for hospitalization: CHF exacerbation COPD exacerbation Acute on chronic hypoxic respiratory failure [employer] note: Pt states she is doing better. Pt states there were no med changes. Pt states daughter moved in with her to assist with care. Pt has a NIV machine. Pt states her 02 concentrator that does not connect to NIV properly. Both parts are from different medical supply companies. [facility]-NIV machine Oxygen concentrator [facility] [employer] [facility] sent left message for PCP Team to call them regarding order (oxygen concentrator.) Pt also sent mychart. Sent and FYI via chat to view mychart Pt is not using a device to assist with mobility. Pt has a walker if needed. Pt has appt 07/23/25 with PCP. I offered an earlier appt with Pac SACHI for TCM, Program Details Post Acute Care Status: Enrolled Effective Dates: 06/21/2025 - present Responsible Staff: Anne Marie Gonzalez MA Support and Services: Post-SNF Transition Support TYPE OF OUTREACH: PAC TCM Initial Outreach Transition from: [facility] (SNF) Hi my name is Anne Marie Gonzalez MA and I am calling from the [facility] on behalf of your PCP, Phuc Martines DO, at [facility] [[id number]] We know that there can be many moving parts when transitioning home from a nursing facility. Our goal is to make sure you are doing well and that nothing slips through the cracks during this transition in regard to your care and you experience a safe recovery. Do you have a few minutes to update me on how you've been doing? Yes Contact with patient post discharge, spoke to patient. Patient identified by name and . Ask patient if there is a family member we have permission to speak with. If so, please confirm and document in the Contacts section in Demographics. Ask patient if they would like the family member to participate in this call or future calls. PATIENT HEALTH STATUS I am calling to see how you're feeling now that you're home. Do you feel BETTER, WORSE, or the SAME since leaving -- ([facility]. [phone]) ? Better ACTION TAKEN: Patient reports Better or Same - No action required - Continue outreach. MEDICATIONS Were there any changes made to your medications during your recent hospital or nursing facility stay? no Did the team(s) there review those changes with you and the reasons why they were made? Yes Do you have any questions about taking your medications or which medication you should be on? No Do you need any medication refills at this time, including any of the medications you might take only when needed? No ACTION TAKEN: No - No action required DISCHARGE INSTRUCTIONS Your discharge instructions talk about diaz tasks and behaviors that can help you through the recovery process. Do you have any question of what you need to do to safely recover and manage your health at home? No ACTION TAKEN: No - No action required Do you have all the necessary equipment and supplies at home? Yes ACTION TAKEN: Yes - Patient has the necessary equipment and supplies - no action required Determine if the patient was ordered Home Care services upon transition. Was patient ordered Home Care services? Yes ACTION TAKEN: No - Home care not needed/ordered - no action required APPOINTMENTS A visit with your primary and/or specialty care doctor(s) is a great way for you to connect with a provider to ensure you have safely transitioned home. This will also give you an opportunity to ask any questions or address any concerns you may have directly with your provider. This appointment can be completed through a virtual visit or in-person appointment. Appointments for Next 60 Days Date Time Provider Location Dept Phone 07/23/2025 12:00 PM PHUC MARTINES [facility] [phone] 07/29/2025 10:[address] [facility] WSTR (I-STAT) Shefali Messer [phone] 07/29/2025 11:00 AM BRANDYN CARRASCO [phone] 08/04/2025 10:00 AM RAJENDRA GOODMAN Sridevi Messer [phone] Does patient have an appointment scheduled? No - Patient does not have an appointment and declines to schedule. Inform the patient that if they change their mind, to please call you back directly and you will assist them with scheduling. Provide direct phone number. ACTION TAKEN: No action required - patient declines appointment SOCIAL We would like to make sure you have what you need so that your basic wishes are met - including your personal safety, food, housing, and/or desire to be connected to community resources. Would you like to speak with a social work body service team member to help give you support for any of these needs? No ACTION TAKEN: No - Patient has no needs at this time - No action taken MYCHART Patient MyChart status: Active account Thank you for taking the time to talk with me today. Our team would like to stay connected with you to make sure you are feeling well. We want to work with you to ensure that you are staying healthy and out of the hospital. I ll plan to call you in another week or so to see how you re doing. Would you like to select a specific day next week that works well for you? Yes End outreach documented in this encounter [facility] 06-21-2025 Note HNO ID: [id number] Author: KIESHA PIKE, ? Service: ? Author Type: ? Type: Progress Notes Filed: 06/21/2025 11:30 Note Text: PAC TCM OUTREACH DOCUMENTION NURSING HOME FACILITY (SNF) TRANSITIONAL CARE MANAGEMENT (TCM) POST-ACUTE CARE (PAC) PROGRAM LOS Education Analyst Outreach PAC Transition Navigator Action/FYI: Needs TCM Appt Program Details Post Acute Care Status: Enrolled Effective Dates: 06/21/2025 - present Responsible Staff: POST-ACUTE CARE ACO NAVIGATION Support and Services:Post-SNF Transition Support PAC Transition Navigator Handoff Hospitalization Reason for hospitalization: CHF exacerbation COPD exacerbation Acute on chronic hypoxic respiratory failure [facility] Summary Is Summary Stay Information Available?: No ([facility] did not follow patient during SNF stay) Specialized Discharge Instructions/Needs Specialized discharge instructions/needs: N/A Prior Level of Function Durable Medical Equipment DME ordered: Unknown Home Care Services Home care ordered: Unknown Current Resources Patient has been recently discharged from a alf facility. Hospitalization Details Hospital discharged from: Other (add comment) ([facility] ([facility])) Hospital admission date: 05/13/25 Hospital discharge date: 05/17/25 [facility] Details Non-Network Facilities: -- ([facility] [phone]) SNF admission date: 05/17/25 SNF discharge date: 06/18/25 SNF Target Skilled LOS: 15.4 SNF Actual Skilled LOS: 32 Follow-up appts: Appointments for Next 60 Days Date Time Provider Location Dept Phone 07/23/2025 12:00 PM PHUC MARTINES [facility] [phone] 07/29/2025 10:[address] [facility] WSTR (I-STAT) [facility] [phone] 07/29/2025 11:00 AM BRANDYN CARRASCO [facility] [phone] 08/04/2025 10:00 AM RAJENDRA GOODMAN [facility] [phone] PAC Transition Navigator, please contact patient for PAC TCM Outreach and continuity of care. [facility] 06-21-2025 Telephone encounter Note Opened in error. [facility] 06-21-2025 Miscellaneous Notes Opened in error. documented in this encounter [facility] 06-21-2025 Note Patient Outreach (IN TMPA) RAJENDRA LUCERO ([id number]) 1955 F Date Time Provider Department 06/21/25 ANNE MARIE GONZALEZ INTMP[facility]lee During your visit today, we recorded the following information about you: Anne Marie Gonzalez MA 06/21/2025 4:08 PM Signed NURSING HOME FACILITY (SNF) TRANSITIONAL CARE MANAGEMENT (TCM) POST-ACUTE CARE (PAC) PROGRAM Transitions Navigator Outreach Provider Action/FYI:snf discharge 06/18/25 Reason for hospitalization: ?CHF exacerbation ?COPD exacerbation ?Acute on chronic hypoxic respiratory failure [employer] note: Pt states she is doing better. Pt states there were no med changes. Pt states daughter moved in with her to assist with care. Pt has a NIV machine. Pt states her 02 concentrator that does not connect to NIV properly. Both parts are from different medical supply companies. [facility]-NIV machine Oxygen concentrator [facility] [employer] [facility] sent left message for PCP Team to call them regarding order (oxygen concentrator.) Pt also sent mychart. Sent and FYI via chat to view mychart Pt is not using a device to assist with mobility. Pt has a walker if needed. Pt has appt 07/23/25 with PCP. I offered an earlier appt with Pac SACHI for TCM, Program Details Post Acute Care Status: Enrolled Effective Dates: 06/21/2025 - present Responsible Staff: Anne Marie Gonzalez MA Support and Services: Post-SNF Transition Support TYPE OF OUTREACH: PAC TCM Initial Outreach Transition from: [facility] (SNF) Hi my name is Anne Marie Gonzalez MA and I am calling from the [facility] on behalf of your PCP, Phuc Martines DO, at [facility] [[id number]] We know that there can be many moving parts when transitioning home from a nursing facility. Our goal is to make sure you are doing well and that nothing slips through the cracks during this transition in regard to your care and you experience a safe recovery. Do you have a few minutes to update me on how you've been doing? Yes Contact with patient post discharge, spoke to patient. Patient identified by name and . Ask patient if there is a family member we have permission to speak with. If so, please confirm and document in the Contacts section in Demographics. Ask patient if they would like the family member to participate in this call or future calls. PATIENT HEALTH STATUS I am calling to see how you're feeling now that you're home. Do you feel BETTER, WORSE, or the SAME since leaving -- ([facility] [phone]) ? Better ACTION TAKEN: Patient reports Better or Same - No action required - Continue outreach. MEDICATIONS Were there any changes made to your medications during your recent hospital or nursing facility stay? no Did the team(s) there review those changes with you and the reasons why they were made? Yes Do you have any questions about taking your medications or which medication you should be on? No Do you need any medication refills at this time, including any of the medications you might take only when needed? No ACTION TAKEN: No - No action required DISCHARGE INSTRUCTIONS Your discharge instructions talk about diaz tasks and behaviors that can help you through the recovery process. Do you have any question of what you need to do to safely recover and manage your health at home? No ACTION TAKEN: No - No action required Do you have all the necessary equipment and supplies at home? Yes ACTION TAKEN: Yes - Patient has the necessary equipment and supplies - no action required Determine if the patient was ordered Home Care services upon transition. Was patient ordered Home Care services? Yes ACTION TAKEN: No - Home care not needed/ordered - no action required APPOINTMENTS A visit with your primary and/or specialty care doctor(s) is a great way for you to connect with a provider to ensure you have safely transitioned home. This will also give you an opportunity to ask any questions or address any concerns you may have directly with your provider. This appointment can be completed through a virtual visit or in-person appointment.? Appointments for Next 60 Days Date Time Provider Location Dept Phone 07/23/2025 12:00 PM PHUC MARTINES [facility] [phone] 07/29/2025 10:[address] [facility] WSTR (I-STAT) Shefali Messer [phone] 07/29/2025 11:00 AM JOAQUINBRANDYN CUENCA [phone] 08/04/2025 10:00 AM RAJENDRA GOODMAN [phone] Does patient have an appointment scheduled? No - Patient does not have an appointment and declines to schedule. Inform the patient that if they change their mind, to please call you back directly and you will assist them with scheduling. Provide direct phone number. ACTION TAKEN: No action required - patient declines appointment SOCIAL We would like to make sure you have wha (more content not included)... [facility] 06-16-2025 Telephone encounter Note Faxed as requested. Patricia Ha MA [facility] 06-16-2025 Miscellaneous Notes Faxed as requested. Patricia Ha MA documented in this encounter [facility] 06-15-2025 Telephone encounter Note Called and gave provider info regarding addendum to note for medicare coverage. Completed and faxed. Patricia Ha MA [facility] 06-15-2025 Miscellaneous Notes Called and gave provider info regarding addendum to note for medicare coverage. Completed and faxed. Patricia Ha MA Sherrell from [facility] asking if Paige could call her concerning an order that needs to be signed. Sherrell Logan phoned regarding order of NIV. Please return call [phone]. No other details were given. Sherrell aware nurse not available this morning. Hodan Quinn MA documented in this encounter [facility] 06-15-2025 Telephone encounter Note Sherrell from [facility] asking if Paige could call her concerning an order that needs to be signed. [facility] 06-15-2025 Telephone encounter Note Sherrell from [facility] phoned regarding order of NIV. Please return call [phone]. No other details were given. Sherrell aware nurse not available this morning. Hodan Quinn MA [facility] 06-14-2025 Telephone encounter Note Call received from [facility] in [place]. They are requesting most recent ABGs done within the last 90 days in order to bill Medicare for the NIV. According to notes, ABGs were done during recent hospitalization but unsure if it was at [facility] or [facility]. Please fax ABGs to [facility] at: . Sierra Ludwig RN June 14, 2025 11:12 AM [facility] 06-14-2025 Miscellaneous Notes Call received from [facility] in [place]. They are requesting most recent ABGs done within the last 90 days in order to bill Medicare for the NIV. According to notes, ABGs were done during recent hospitalization but unsure if it was at [facility] or [facility]. Please fax ABGs to [facility] at: . Sierra Ludwig RN June 14, 2025 11:12 AM Kallie from [facility] called and would like to get some info faxed over for this patients NIV just to cover their bases as she is supposed to be discharged home this week. Fax number [phone] Attn: Kallie. Jeanine Bedolla LPN documented in this encounter [facility] 06-14-2025 Telephone encounter Note Kallie from [facility] called and would like to get some info faxed over for this patients NIV just to cover their bases as she is supposed to be discharged home this week. Fax number [phone] Attn: Kallie. Jeanine Bedolla LPN [facility] 06-14-2025 Telephone encounter Note See refill encounter [facility] 06-14-2025 Miscellaneous Notes See refill encounter documented in this encounter [facility] 06-14-[address]25 [address]. Martines, When in the hospital the end of January, they gave me a 3 month RX for Lasix. The prescription needs to be renewed. I am currently in [facility]. They said my primary needs to do refills, but [facility] says I cannot do through there. Can you please send a new RX to [facility] in [place] for this? Thank you, Linwood Lucero [facility] 06-14-[address] Martines, When in the hospital the end of January, they gave me a 3 month RX for Lasix. The prescription needs to be renewed. I am currently in [facility]. They said my primary needs to do refills, but [facility] says I cannot do through there. Can you please send a new RX to [facility] in [place] for this? Thank you, Linwood Lucero documented in this encounter [facility] 06-11-2025 Telephone encounter Note Noted. NIV orders faxed to [facility]. Lake Melvin LPN [facility] 06-11-2025 Miscellaneous Notes Noted. NIV orders faxed to [facility]. Lake Melvin LPN Patient called. Verified name and date of . States she is getting discharged from the jail, [facility], tomorrow. Patient understood NIV Machine through [facility]. Patient states that [facility] has not received an order for the NIV Machine. Patient is able to get calls on her cell phone at this time: . Pito Izaguirre LPN documented in this encounter [facility] 06-11-2025 Telephone encounter Note Patient called. Verified name and date of . States she is getting discharged from the jail, [facility] tomorrow. Patient understood NIV Machine through [facility]. Patient states that [facility] has not received an order for the NIV Machine. Patient is able to get calls on her cell phone at this time: . Pito Izaguirre LPN [facility] 06-04-2025 Note HNO ID: [id number] Author: RAJENDRA GOODMAN APRN.PRACTICE NURSE Service: ? Author Type: Nurse Practitioner Type: Progress Notes Filed: 06/15/2025 14:49 Note Text: Pulmonary Medicine Patients name: Rajendra Palumbo PCP: Phuc Martines DO Recording using [employer] software for draft documentation of the visit was discussed with the patient/authorized guest services representative; all questions welcomed and answered. Patient/authorized guest services representative agreed to proceed CC: hospital follow-up HPI: Rajendra Lucero is a 69 year old female former [id number] smoker, quitting in 2008 with PMH significant for morbid obesity, severe COPD, chronic hypoxemic respiratory failure, CAD, HTN, and ROXY. Current therapy consists of Trelegy Ellipta with as needed albuterol/Duoneb. On supplemental O2. She presents today for hospital follow-up. [facility] 02/2025 for hospital follow-up where she was treated for AFL. Had concern for ROXY. Sleep study ordered but she is opting to take care of heart rhythm issues first. She was hospitalized again 05/13-05/17 for acute respiratory failure in the setting of CHF and COPD exacerbation. Chest CTA negative for PE. Revealed mild vascular congestion. Diuretics increased. Also completed blood gas which showed PACO2 92%. Treated with Bipap and did not require intubation. She was discharged to alf on baseline O2. She had an updated chest xray earlier this week at her nursing facility d/t gradual worsening in respiratory symptoms. Xrayshowed patchy b/l infiltrates and a rt side pleural effusion. Currently on Cefdinir and Azithromycin with Duoneb multiple times a day. Lasix dose has been adjusted. Today, patient denies cough. No significant wheezing or chest tightness. Occasionally will note dyspnea at rest. Exertional dyspnea has not changed. She is compliant with supplemental O2. No recent fevers, chills, or night sweats. Has been having trouble with lower extremity edema despite diuretics. DME: Bruce 3.5 L at rest/nocturnal and 6L with activity PAST MEDICAL HISTORY Diagnosis Date Atrial flutter (HCC) CHF (congestive heart failure) (HCC) Chronic hypoxemic respiratory failure (HCC) COPD (chronic obstructive pulmonary disease) ([facility]) 02/03/2010 Coronary artery disease No UT, CHF. No heart cath. Diverticulosis of colon (without mention of hemorrhage) Essential hypertension, benign Fibrocystic breast Former smoker Internal hemorrhoids without mention of complication Leiomyoma of uterus, unspecified Obstructive sleep apnea Mild. Not prescribed CPAP, only 2L nasal O2. Allergies: Aleve [Naproxen] Hives Comment:Hives, edema of hands within 1 hour of use Nitrofurantoin Rash Medication List Accurate as of June 02, 2025 1:15 PM. If you have any questions, ask your nurse or doctor. CONTINUE taking these medications albuterol HFA 90 mcg/actuation inhaler Commonly known as: PROVENTIL HFA, VENTOLIN HFA Inhale 2 Puffs as instructed every 6 hours as needed for wheezing/shortness of breath. apixaban 5 mg tab(s) Commonly known as: ELIQUIS atorvastatin 40 mg tablet Commonly known as: LIPITOR B12 ACTIVE PO CINNAMON PO COMPOUNDED PRESCRIPTION COMPOUNDED PRESCRIPTION Please dispense nebulizer and supply kit, including tubing, mouth piece, and hose. Assoc diagnosis: J44.9. Dispense: 1 each, Refills: 99. dilTIAZem CD 180 mg 24 hr capsule Commonly known as: CARDIZEM CD, CARTIA XT SIVAN C ORAL FARXIGA 10 mg tablet Generic drug: dapagliflozin propanediol furosemide 40 mg tablet Commonly known as: [...] ELLIPTA 200-62.5-25 mcg inhalation powder Generic drug: hdzfikvethw-oepdbhbgs-ehebeotv Inhale 1 Puff as instructed once daily. triamcinolone acetonide 0.5 % cream Commonly known as: KeNALog Apply 1 application to affected area two times a day as needed (foot rash, eczema). For rash/itching. Apply sparingly. Avoid face/skin fold. DATA: I personally reviewed and analyzed all labs, radiographs and available pulmonary function testing PFT: 02/2022 Spirometry indicates very severe obstruction. CXR: Last XR Chest - Impression Only XR CHEST 2V FRONTAL/LAT Exam End: 09/28/2022 1:22 PM (Final result) Impression: IMPRESSION: Overall findings unchanged. ... CTA Chest: OSH 04/2025 Review of Systems Constitutional: Negative for activity change, appetite change, fever and unexpected weight change. HENT: Positive for postnasal drip. Negative for congestion, mouth sores and sinus pressure. Respiratory: Positive for (more content not included)... [facility] 05-17-2025 Consult note [facility] 05-17-2025 Discharge summary [facility] 05-17-2025 Discharge summary [facility] 05-17-2025 Discharge summary [facility] 05-17-2025 Note [facility] 05-17-2025 Discharge summary Note Date/Time May 17, 2025 11:13am [facility] Medical Records Department [address] [place] [address] Instructions for Home/Discharge Instructions 05/17/25 0751 MR#: [id number] Acct: [id number] Name: RAJENDRA LUCERO Rep #:[id number] : 1955 69 From: George Willis PCP: Dr. Phuc Martines, DO Status:AD M IN Discharge Instructions DC O2, CPAP, BIPAP needs Home O2 Discharge instructions: Yes Type of respiratory needs?: Oxygen Oxygen frequency: Continuous Continuous oxygen liters per minute: 6 Dressing / Incision Discharge Activity: Return [...] if applicable. Discharge Plan Admission Admit Date/Time: 05/13/25 18:22 Primary Reason for Your Visit: COPD exacerbation Attending Provider: George Polanco Primary Care Provider: Phuc Martines Consulting Providers: Nicko Vallejo Discharge Orders/Prescriptions Prescriptions: New prednisone 10 mg tablet 10 mg PO DAILY Qty: 30 0RF Rx Instructions: 40 mg for 3 days 30 mg for 3 days, 20 mg for 3 days,and 10 mg for 3 days Continued cinnamon bark [Cinnamon] 500 mg capsule 500 mg PO QDAY mecobalamin (vitamin B12) 1,000 mcg tablet,chewable 1,000 mcg PO QDAY dapagliflozin propanediol [Farxiga] 10 mg tablet 10 mg PO QAM Qty: 30 11RF Eliquis 5 mg tablet 5 mg PO BID Qty: 180 3RF metoprolol tartrate 50 mg tablet 50 mg PO BID Qty: 180 3RF potassium chloride [Klor-Con M20] 20 mEq tablet,ER particles/crystals 20 meq PO BID Qty: 180 3RF diltiazem HCl 180 mg capsule,extended release 24hr 180 mg PO Q12 Qty: 180 3RF atorvastatin 40 mg tablet 40 mg PO QHS Qty: 90 3RF Oxygen, Home [Home Oxygen] 2 - 4 [...] [Daily Multi-Vitamin] Tablet 1 tab PO DAILY [place] Saline 0.65 % aerosol,spray 1 spray intranasal BID PRN (Reason: dry nasal passages) nystatin 100,000 unit/gram cream 1 applic topical BID amiodarone 200 mg tablet 200 mg PO DAILY Changed furosemide 40 mg tablet 60 mg PO BID Qty: 180 3RF guaifenesin [Mucus Relief ER] 1,200 MG tablet 1,200 mg PO BID 7 Days Qty: 0 0RF Referrals / Follow Up: Phuc Martines DO [Primary Care Provider] - Disposition Disposition (needs filled in before D/C Order can be placed): [facility] Facility 05/17/25 1113<Electronically signed by George Polanco MD>George Polanco MD CC: Dr. Nicko Vallejo, ; Dr. Phuc Martines DO ~ Signed [facility] Work Phone: 1(737) 220-525907-21-2025 Hospital Discharge instructionsAdditional Instructions Follows [facility] registrar Dr. Ortiz chronically advised to follow-up in 1 to 2 weeks and get PFT and sleep study Date of Discharge: 05/17/25[facility] Work Phone: 1(238) 869-137207-20-2025 [facility] Date/Time May 16, 2025 1:52 pm [facility] Medical Records Department [address] [place] [address] Progress Note - Hospitalist 05/16/25 1342 MR#: [id number] Acct: [id number] Name: RAJENDRA LUCERO Rep #:[id number] : 1955 69 From: George Willis PCP: Dr. Phuc Martines DO Status:AD M IN Location: [place] [address] Reason for Visit Chief Complaint: Worsening shortness of breath and leg swelling Objective Data Objective Data Vital Signs: Vital Signs Temp Pulse Resp BP Pulse Ox O2 Del Method O2 Flow Rate 98.3 F 67 18 117/79 98 Nasal Cannula 4 05/16/25 09:08 05/16/25 13:13 05/16/25 13:13 05/16/25 09:15 05/16/25 13:20 05/16/25 13:20 05/16/25 13:20 FiO2 40 05/16/25 02:37 Oxygen Flow Rate (L/min) 4 Oxygen Delivery Method Nasal Cannula Weight: 262 lb 2.991 oz Body Mass Index (BMI) 45.0 Intake & Output: Intake and Output for Last 24 Hours 05/14/25 05/15/2505/16/25 23:59 23:59 23:59 Intake Total 1280 / 1280 Output Total 3400 / 3400 2100 / 2850 1350 / 1350 Balance -2120 / -2120 -2100 / -2850 -1350 / -1350 Lab / Micro Data 05/16/25 04:07 05/16/25 04:07 Labs: Laboratory Results - last 24 hr 05/16/25 04:07: WBC 8.9, RBC 3.14 L, Hgb 9.5 L, Hct 30.9 L, MCV 98.4, MCH 30.3, MCHC 30.7 L, RDW Std Deviation 54.3 H, RDW Coeff of Karly 15.4 H, Plt Count 142 L,MPV 11.5, Immature Gran % (Auto) 0.600, Neut % (Auto) 93.2 H, Lymph % (Auto) 3.2L, [place] % (Auto) 2.9, Eos % (Auto) 0.0, Baso % (Auto) 0.1, Absolute Neuts (auto)8.3 H, Absolute Lymphs (auto) 0.28 L, Nucleated RBC % 0, Sodium 141, Potassium 4.5, Chloride 91 L, Carbon Dioxide 39.8 H, Anion Gap 10, BUN 31 H, Creatinine 0.66 L, Estim Creat Clear Calc 86.60, Est GFR (MDRD) Non-Af 96, BUN/Creatinine Ratio 46.8 H, Glucose 162 H, Calcium 9.2 Physical Exam Narrative Seen and examined. Patient has moved his bowel. Her breathing is better but she is still on 4 to 6L of high flow oxygen. Using BiPAP at night. Patient admitted with extreme shortness of breath and felt mild sharp chest pain/stabbing in sensation. She has chronic cough with mild increase in severity. No fever. No dysuria. Physical exam General: Alert, Oriented x3, Cooperative. BMI 45.0 kg/m? HEENT: Atraumatic, PERRLA, EOMI, Normocephalic. Oral: No Gingival or Mucosal Lesions/ Ulcerations Neck: Supple, No JVD, Negative Carotid Bruits Chest wall/Lungs: Air entry mild diminished diffusely. Lungs are clear. Cardiovascular: Regular rate and rhythm, Normal S1,S2, No M/G/R Abdomen: Bowel Sounds Present, Soft, Non Tender, Non-Distended : No dysuria. No renal angle tenderness. No suprapubic tenderness. Extremities: Bilateral 2+ pitting edema, Capillary Refill Less than 3 Seconds Skin: No rashes, No breakdown Musculoskeletal: No Tenderness to Palpation of Joints or Extremities Neurological: Cranial nerves II-XII grossly intact, DTR 2+/4. No acute focal neurological deficit. Psych/Mental Status: Flat affect. Assessment & Plan Assessment/Plan (1) Acute and chronic respiratory failure with hypercapnia: (2) Acute on chronic heart failure with preserved ejection fraction (HFpEF): PLAN: Plan Patient is a 69-year-old female who presented to [facility] ED on 05/13/2025 with worsening shortness of breath and lower extremity swelling. 1. Acute on chronic hypercapnic respiratory failure most likely due to COPD andheart failure exacerbation ? Admit under inpatient status to PCU. Suspect multifactorial due to acute on chronic HFpEF and untreated ROXY as below. ABG on admit with pH 7.36 but pCO2 92. Patient on 3.5 L at rest and 6 L on exertion at baseline. CTA chest showedno PE and no pleural effusions with mild vascular congestion, severe centrilobular emphysematous changes. Patient improved on the BiPAP, did not require intubation. 05/14: Still on high flow oxygen, 10 L, respiratory rate 20/min. Continue BiPAP during naps and at night and as needed for respiratory fatigue. Patient is being managed on scheduled bronchodilator, IV Solu-Medrol, Mucinex, incentive spirometry and Pep. Atypical chest pain described as pulmonary related, 2 serial troponins are negative. ACS ruled out. Respiratory panel negative. 05/15: Patient is doing better than yesterday with better ventilation and oxygenation. 05/16: Patient is gradually improving but she still needs 4 to 6 L of high flow oxygen therefore probably 1 more day. digital project manager for discharge planning. 2. Acute on chronic HFpEF with moderate pulmonary hypertension, mild valvular heart disease ? Mild vascular congestion on chest imaging and +1-2 lower extremity pitting edema on exam noted. BNP 2554, though notably BNP was 2566 on 05/07. However, patient was on Lasix 60 mg twice daily without much improvement. IV Lasix 40 mgtwice daily for now, monitor daily BMP and urine output. Continue home dapagliflozin. Recent echo 02/19/2025 Interpretation Summary Borderline LV systolic function. Estimated LVEF 45-50%. Moderate global right ventricular systolic dysfunction. There is mild biatrial dilatation. Moderate (2+) eccentric mitral valve insufficiency. Mild tricuspid valve insufficiency. Right ventricular systolic pressure estimated to be 53 mmHg. The study was technically difficult. 05/15 continue diuresis. 05/16: Patient still has significant leg swelling 2+ edema therefore Nina wrap bandage 3. Class III obesity with ROXY not on home PAP therapy ? BMI 45 on admit. Complicates hospital course and care. Patient reports having sleep study done in the past but did not think she could tolerate PAP therapy and has never had a PAP machine at home. Continue PAP therapy at night and with naps while inpatient as noted above. digital project manager to help, set up sleep study shortly after discharge. 05/15 on BiPAP. 4. Paroxysmal A-fib/flutter on Eliquis, hypertension, hyperlipidemia, history of VTE ? Follows with outpatient cardiology. In rate controlled atrial flutter with rate in the 100s on admit. EKG showed atrial flutter with rate 106 bpm. Normotensive to hypertensive in the ED. Continue home Eliquis, amiodarone, diltiazem, Lopressor and atorvastatin. 5. Alcohol abuse ? Patient reports drinking 2 alcoholic drinks daily and on chart review, she reported 2 drinks a day during recent admission at the end of March. However, daughter noted that there are days where patient will drink 4-5 alcoholic drinks. on CIWA protocol without medications for now. Monitor. 6. History of tobacco abuse ? Encouraged continued cessation. 7. Solitary pulmonary nodules: Unchanged solid nodule in the right upper lobe measuring 1.2 x 0.4 cm, RUL measuring 3 mm. Also shows extensive centrilobular and paraseptal emphysema. Biapical scarring. Linear consolidation at posteriorlung bases, right greater than left DVT prophylaxis: Not indicated, on Eliquis 5 mg twice daily. CODE STATUS: Full code, verified Laboratory Results 05/16/25 04:07: WBC 8.9, RBC 3.14 L, Hgb 9.5 L, Hct 30.9 L, MCV 98.4, MCH 30.3, MCHC 30.7 L, RDW Std Deviation 54.3 H, RDW Coeff of Karly 15.4 H, Plt Count 142 L,MPV 11.5, Immature Gran % (Auto) 0.600, Neut % (Auto) 93.2 H, Lymph % (Auto) 3.2L, [place] % (Auto) 2.9, Eos % (Auto) 0.0, Baso % (Auto) 0.1, Absolute Neuts (auto)8.3 H, Absolute Lymphs (auto) 0.28 L, Nucleated RBC % 0, Sodium 141, Potassium 4.5, Chloride 91 L, Carbon Dioxide 39.8 H, Anion Gap 10, BUN 31 H, Creatinine 0.66 L, Estim Creat Clear Calc 86.60, Est GFR (MDRD) Non-Af 96, BUN/Creatinine Ratio 46.8 H, Glucose 162 H, Calcium 9.2 Laboratory Results 05/15/25 04:58: WBC 7.5, RBC 3.18 L, Hgb 9.6 L, Hct 32.3 L, MCV 101.6 H, MCH 30.2, MCHC 29.7 L, RDW Std Deviation 56.8 H, RDW Coeff of Karly 15.2 H, Plt Count TNP, MPV 11.4, Immature Gran % (Auto) 0.500, Neut % (Auto) 94.0 H, Lymph % (Auto) 4.3 L, [place] % (Auto) 1.1, Eos % (Auto) 0.0, Baso % (Auto) 0.1, Absolute Neuts (auto) 7.0, Absolute Lymphs (auto) 0.32 L, Nucleated RBC % 0, Platelet Estimate A, Plt Morphology Comment CLUMPED, Sodium 144, Potassium 4.6, Chloride 92 L, Carbon Dioxide 40.8 H, Anion Gap 12, BUN 23 H, Creatinine 0.63 L, Estim Creat Clear Calc 86.60, Est GFR (MDRD) Non-Af 97, BUN/Creatinine Ratio 36.8 H, Glucose 137 H, Calcium 9.6 Clinical Impression(s) from Imaging Studies Chest CTA 05/13/25 13:49 IMPRESSION: 1. Markedly limited exam, without evidence [...] of malignancy or associated symptoms. Reading Location: [id number] Charges/Coding Visit Charges Inpatient E&M: 01387 Subs Hosp L2 05/16/25 1352 <Electronically signed by George Polanco MD> Cosigner Signature (if applicable): CC: ~ Signed [facility] Work Phone: 1(444) 249-902607-20-2025 Progress note [facility] Medical Records Department [address] [place] [address] Progress Note - Hospitalist 05/16/25 1342 MR#: [id number] Acct: [id number] Name: RAJENDRA LUCERO Rep #:[id number] : 1955 69 From: George Willis PCP: Dr. Phuc Martines, DO Status:AD M IN Location: [facility] [id number] Reason for Visit Chief Complaint: Worsening shortness of breath and leg swelling Objective Data Objective Data Vital Signs: Vital Signs Temp Pulse Resp BP Pulse Ox O2 Del Method O2 Flow Rate 98.3 F 67 18 117/79 98 Nasal Cannula 4 05/16/25 09:08 05/16/25 13:13 05/16/25 13:13 05/16/25 09:15 05/16/25 13:20 05/16/25 13:20 05/16/25 13:20 FiO2 40 05/16/25 02:37 Oxygen Flow Rate (L/min) 4 Oxygen Delivery Method Nasal Cannula Weight: 262 lb 2.991 oz Body Mass Index (BMI) 45.0 Intake & Output: Intake and Output for Last 24 Hours 05/14/25 05/15/25 05/16/25 23:59 23:59 23:59 Intake Total 1280 / 1280 Output Total 3400 / 3400 2100 / 2850 1350 / 1350 Balance -2120 / -2120 -2100 / -2850 -1350 / -1350 Lab / Micro Data 05/16/25 04:07 05/16/25 04:07 Labs: Laboratory Results - last 24 hr 05/16/25 04:07: WBC 8.9, RBC 3.14 L, Hgb 9.5 L, Hct 30.9 L, MCV 98.4, MCH 30.3, MCHC 30.7 L, RDW Std Deviation 54.3 H, RDW Coeff of Karly 15.4 H, Plt Count 142 L,MPV 11.5, Immature Gran % (Auto) 0.600,Neut % (Auto) 93.2 H, Lymph % (Auto) 3.2L, [place] % (Auto) 2.9, Eos % (Auto) 0.0, Baso % (Auto) 0.1, Absolute Neuts (auto)8.3 H, Absolute Lymphs (auto) 0.28 L, Nucleated RBC % 0, Sodium 141, Potassium 4.5, Chloride 91 L, Carbon Dioxide 39.8 H, Anion Gap 10, BUN 31 H, Creatinine 0.66 L, Estim Creat Clear Calc 86.60, Est GFR (MDRD) Non-Af 96, BUN/Creatinine Ratio 46.8 H, Glucose 162 H, Calcium 9.2 Physical Exam Narrative Seen and examined. Patient has moved his bowel. Her breathing is better but she is still on 4 to 6L of high flow oxygen. Using BiPAP at night. Patient admitted with extreme shortness of breath and felt mild sharp chest pain/stabbing in sensation. She has chronic cough with mild increase in severity. No fever. No dysuria. Physical exam General: Alert, Oriented x3, Cooperative. BMI 45.0 kg/m? HEENT: Atraumatic, PERRLA, EOMI, Normocephalic. Oral: No Gingival or Mucosal Lesions/ Ulcerations Neck: Supple, No JVD, Negative Carotid Bruits Chest wall/Lungs: Air entry mild diminished diffusely. Lungs are clear. Cardiovascular: Regular rate and rhythm, Normal S1,S2, No M/G/R Abdomen: Bowel Sounds Present, Soft, Non Tender, Non-Distended : No dysuria. No renal angle tenderness. No suprapubic tenderness. Extremities: Bilateral 2+ pitting edema, Capillary Refill Less than 3 Seconds Skin: No rashes, No breakdown Musculoskeletal: No Tenderness to Palpation of Joints or Extremities Neurological: Cranial nerves II-XII grossly intact, DTR 2+/4. No acute focal neurological deficit. Psych/Mental Status: Flat affect. Assessment & Plan Assessment/Plan (1) Acute and chronic respiratory failure with hypercapnia: (2) Acute on chronic heart failure with preserved ejection fraction (HFpEF): PLAN: Plan Patient is a 69-year-old female who presented to [facility] ED on 05/13/2025 with worsening shortness of breath and lower extremity swelling. 1. Acute on chronic hypercapnic respiratory failure most likely due to COPD andheart failure exacerbation ? Admit under inpatient status to PCU. Suspect multifactorial due to acute on chronic HFpEF and untreated ROXY as below. ABG on admit with pH 7.36 but pCO2 92. Patient on 3.5 L at rest and 6 L on exertion at baseline. CTA chest showedno PE and no pleural effusions with mild vascular congestion, severe centrilobular emphysematous changes. Patient improved on the BiPAP, did not require intubation. 05/14: Still on high flow oxygen, 10 L, respiratory rate 20/min. Continue BiPAP during naps and at night and as needed for respiratory fatigue. Patient is being managed on scheduled bronchodilator, IV Solu-Medrol, Mucinex, incentive spirometryand Pep. Atypical chest pain described as pulmonary related, 2 serial troponins are negative. ACS ruled out. Respiratory panel negative. 05/15: Patient is doing better than yesterday with better ventilation and oxygenation. 05/16: Patient is gradually improving but she still needs 4 to 6 L of high flow oxygen therefore probably 1 more day. digital project manager for discharge planning. 2. Acute on chronic HFpEF with moderate pulmonary hypertension, mild valvular heart disease ? Mild vascular congestion on chest imaging and +1-2 lower extremity pitting edema on exam noted. BNP 2554, though notably BNP was 2566 on 05/07. However, patient was on Lasix 60 mg twice daily without much improvement. IV Lasix 40 mgtwice daily for now, monitor daily BMP and urine output. Continue home dapagliflozin. Recent echo 02/19/2025 Interpretation Summary Borderline LV systolic function. Estimated LVEF 45-50%. Moderate global right ventricular systolic dysfunction. There is mild biatrial dilatation. Moderate (2+) eccentric mitral valve insufficiency. Mild tricuspid valve insufficiency. Right ventricular systolic pressure estimated to be 53 mmHg. The study was technically difficult. 05/15 continue diuresis. 05/16: Patient still has significant leg swelling 2+ edema therefore Nina wrap bandage 3. Class III obesity with ROXY not on home PAP therapy ? BMI 45 on admit. Complicates hospital course and care. Patient reports having sleep study done inthe past but did not think she could tolerate PAP therapy and has never had a PAP machine at home. Continue PAP therapy at night and with naps while inpatient as noted above. digital project manager to help, set up sleep study shortly after discharge. 05/15 on BiPAP. 4. Paroxysmal A-fib/flutter on Eliquis, hypertension, hyperlipidemia, history of VTE ? Follows with outpatient cardiology. In rate controlled atrial flutter with rate in the 100s on admit. EKG showed atrial flutter with rate 106 bpm. Normotensive to hypertensive in the ED. Continue home Eliquis, amiodarone, diltiazem, Lopressor and atorvastatin. 5. Alcohol abuse ? Patient reports drinking 2 alcoholic drinks daily and on chart review, she reported 2 drinks a day during recent admission at the end of March. However, daughter noted that there are days where patient will drink 4-5 alcoholic drinks. on CIWA protocol without medications for now. Monitor. 6. History of tobacco abuse ? Encouraged continued cessation. 7. Solitary pulmonary nodules: Unchanged solid nodule in the right upper lobe measuring 1.2 x 0.4 cm, RUL measuring 3 mm. Also shows extensive centrilobular and paraseptal emphysema. Biapical scarring. Linear consolidation at posteriorlung bases, right greater than left DVT prophylaxis: Not indicated, on Eliquis 5 mg twice daily. CODE STATUS: Full code, verified Laboratory Results 05/16/25 04:07: WBC 8.9, RBC 3.14 L, Hgb 9.5 L, Hct 30.9 L, MCV 98.4, MCH 30.3, MCHC 30.7 L, RDW Std Deviation 54.3 H, RDW Coeff of Karly 15.4 H, Plt Count 142 L,MPV 11.5, Immature Gran % (Auto) 0.600,Neut % (Auto) 93.2 H, Lymph % (Auto) 3.2L, [place] % (Auto) 2.9, Eos % (Auto) 0.0, Baso % (Auto) 0.1, Absolute Neuts (auto)8.3 H, Absolute Lymphs (auto) 0.28 L, Nucleated RBC % 0, Sodium 141, Potassium 4.5, Chloride 91 L, Carbon Dioxide 39.8 H, Anion Gap 10, BUN 31 H, Creatinine0.66 L, Estim Creat Clear Calc 86.60, Est GFR (MDRD) Non-Af 96, BUN/Creatinine Ratio 46.8 H, Glucose 162 H, Calcium 9.2 Laboratory Results 05/15/25 04:58: WBC 7.5, RBC 3.18 L, Hgb 9.6 L, Hct 32.3 L, MCV 101.6 H, MCH 30.2, MCHC 29.7 L, RDWStd Deviation 56.8 H, RDW Coeff of Karly 15.2 H, Plt Count TNP, MPV 11.4, Immature Gran % (Auto) 0.500, Neut % (Auto) 94.0 H, Lymph % (Auto) 4.3 L, [place] % (Auto) 1.1, Eos % (Auto) 0.0, Baso % (Auto) 0.1, Absolute Neuts (auto) 7.0, Absolute Lymphs (auto) 0.32 L, Nucleated RBC % 0, Platelet Estimate A,Plt Morphology Comment CLUMPED, Sodium 144, Potassium 4.6, Chloride 92 L, Carbon Dioxide 40.8 H, Anion Gap 12, BUN 23 H, Creatinine 0.63 L, Estim Creat Clear Calc 86.60, Est GFR (MDRD) Non-Af 97, BUN/Creatinine Ratio 36.8 H, Glucose 137 H, Calcium 9.6 Clinical Impression(s) from Imaging Studies Chest CTA 05/13/25 13:49 IMPRESSION: 1. Markedly limited exam, without evidence of central pulmonary embolism. Consider repeating this exam if there is persistent concern for a more distal embolism. 2. Similar appearance of the lungs compared to CT on 02/20/2025, to include solid pulmonary nodulesmeasuring up to 1.2 cm in size. Recommend repeat CT in 6-12 months, and Pulmonology referral if not already performed. 3. Multiple hypodense lesions in the spleen measuring up to 2.[address] abdomenand pelvis for further evaluation, particularly if the patient has a history of malignancy or associated symptoms. Reading Location: [facility] Charges/Coding Visit Charges Inpatient E&M: 99184 Subs Hosp L2 05/16/25 1352 Cosigner Signature (if applicable): CC: ~ Signed [facility]07-19-2025 Discharge summary Author Malika Hernandez [facility] Note Date/Time May 15, 2025 3:11 pm [facility] Medical Records Department [address] [place] [address] Emergency Department Summary 05/13/25 MR#: [id number] Acct: [id number] Name: RAJENDRA LUCERO Rep #:[id number] : 1955 69 From: Malika LYNN PCP: Dr. Phuc Martines, Status:AD M IN Location: [facility] [id number] <Statement entered by Linwood Ivy DO - 05/15/25 15:11> Patient was seen and examined with physician nurses medical assistants phlebotomists Malika All components of the history and physical confirmed and agreed. History of present illness and physical exam: Patient is a 69-year-old female with past medical history hypertension, hyperlipidemia, atrial fibrillation/flutter on Eliquis, heart failure with preserved ejection fraction, COPD on 3 to 6 L nasal cannula at baseline, ROXY, alcohol use who presents to the emergency department the chief complaint of worsening shortness of breath and bilateral leg swelling. She states that she was recently admitted to the hospital and states that despite this she feels that her breathing had not been much difference upon discharge. She notes that at home she wears 3.5 L at rest and 6 L with activity. She states that she is on Lasix 40 mg twice daily and notes that she on her visit with cardiology on 05/07 she was instructed to increase Lasix to 60 mg twice daily for 5 days and they started her on Farxiga 10 mg daily. Per EMS when they arrived they noted that she was hypoxic therefore they placed her on nonrebreather. Review of systems: Agree with above Physical exam: Agree with above MDM Patient is a 69-year-old female who presented to the emergency department the chief complaint of worsening dyspnea on exertion and increased bilateral lower extremity edema. Once workup is obtained and reviewed she will be reevaluated. Patient's CBC was reviewed which showed a white blood cell that was normal at 10.1, hemoglobin 10.1, platelet count of 115. Patient sodium was 143, potassiumwas 4.7, creatinine was 0.58. Patient's AST and ALT were 27 and 18 respectively, troponin was less than 6 with a delta troponin of less than 6. Patient's EKG reviewed and showed atrial flutter with a rate of 106 bpm. Patient's proBNP elevated 2554. Patient's ABG obtained reviewed showed pH 7.36 with a PCO2 92.9. Patient CTA of the chest was reviewed and showed markedly limited exam without evidence of central pulmonary embolism. There was similar appearance of the lungs on CT at 02/20/2025 which included solid pulmonary nodulemeasuring up to 1.2 cm in size. Recommend repeat CT in 6 to 12 months and pulmonary referral. Multiple hypodense lesions in the spleen measuring 2.[address] abdomen pelvis. At this point in time given her increased oxygen requirements there is concern for COPD/CHF exacerbation therefore patient's case was discussed with hospitalist for admission. Patient was excepted to the hospital for admission. Patient was updated as well as for member all question concerns answered at bedside. Final impression: CHF exacerbation COPD exacerbation Acute on chronic hypoxic respiratory failure Disposition: Patient will be admitted to the hospital further evaluation management Supervising attending attestation: Linwood GERMAIN History of Present Illness Chief Complaint: Shortness of Breath Narrative Narrative: 69-year-old female past medical history of HTN, HLD, A-fib/flutter on Eliquis, HFpEF, COPD on 3 to 6 L at baseline, ROXY, alcohol use states over the last few days she has had increasing shortness of breath and bilateral leg swelling. Shewas recently admitted from 04/23 through 04/27 for atrial flutter with RVR and mildCOPD exacerbation from a suspected viral infection. States at home she wears 3.5 L of O2 at rest and 6 L with activity. She has had increasing leg swelling. She was on Lasix 40 mg twice daily and had a cardiology visit on 05/07 and was instructed to increase Lasix to 60 mg twice daily for 5 days and start Farxiga 10 mg daily. Today she feels more short of breath and is requiring more oxygen. No chest pain. No fever or chills. No nausea vomiting or abdominal pain. [facility] Medical History Atrial flutter with rapid ventricular response Pulmonary nodule Atrial flutter Shortness of breath ROXY (obstructive sleep apnea) Leiomyoma of uterus Internal hemorrhoids with complication Hypertension Diverticulosis of colon Chronic hypoxemic respiratory failure Alcohol abuse Former smoker On home oxygen therapy Irregular heart beat Atrial fibrillation COPD (chronic obstructive pulmonary disease) Home Medications ?Medication ?Instructions ?Recorded ?Last Taken ?Type Oxygen, Home [Home Oxygen] 2 - 4 lpm QHS sob/copd 10/2804/23/25 History albuterol sulfate 90 mcg/actuation 2 inh inhalation Q6 H PRN shortness 02/19/25 05/13/25 History breath activated powder inhaler of breath fluticasone fur. 200 mcg-umeclid 1 ea inhalation DAILY sob 02/19/25 05/12/25 History 62.5 mcg-vilant 25 mcg inhalat.powder (Trelegy Ellipta) guaifenesin 1,200 mg tablet, 1,200 mg PO BID PRN cough 02/19/25 Unknown History extended release 12 hr (Mucus Relief ER) ipratropium 0.5 mg-albuterol 3 mg 3 ml inhalation Q6H PRN shortness 02/19/25 02/19/25 History (2.5 mg base)/3 mL nebulization of breath soln multivitamin (Daily Multi-Vitamin 1 tab PO DAILY suppl ement 02/19/25 05/12/25 History tablet) sodium chloride 0.65 % nasal spray 1 spray intranasal BID PRN dry 02/19/25 Unknown History aerosol ([place] Saline) nasal passages ascorbic acid (vitamin C) 500 mg 500 mg PO DAILY PRN s upplement 03/30/25 Unknown History capsule cinnamon bark 500 mg capsule 500 mg PO QDAY supplement 03/30/25 05/12/25 History (Cinnamon) mecobalamin (vitamin B12) 1,000 1,000 mcg PO QDAY supp lement 03/30/25 05/12/25 History mcg chewable tablet nystatin 100,000 unit/gram topical 1 applic topical BI D skin rash 04/23/25 05/12/25 History cream apixaban 5 mg tablet (Eliquis) 5 mg PO BID blood thinn er #180 tabs 07/11/25 07/16/25 Rx atorvastatin 40 mg tablet 40 mg PO QHS #90 tabs 05/12/25 Rx dapagliflozin propanediol 10 mg 10 mg PO QAM #30 tabs 05/07/25 05/12/25 Rx tablet (Farxiga) diltiazem HCl 180 mg 180 mg PO Q12 #180 caps 04/2705/12/25 Rx capsule,extended release 24 hr furosemide 40 mg tablet 40 mg PO BID diuretic #180 t abs 05/07/25 05/12/25 Rx metoprolol tartrate 50 mg tablet 50 mg PO BID blood pr essure #180 05/07/25 05/12/25 Rx tabs potassium chloride 20 mEq 20 meq PO BID supplement #18 0 tabs 05/07/25 05/12/25 Rx tablet,extended release(part/cryst) (Klor-Con M) amiodarone 200 mg tablet 200 mg PO DAILY Afib 5 05/12/25 History Allergy/AdvReac Type Severity Reaction Status Date / Time ibuprofen (From Advil) Allergy Mild Hives Verified 05/13/25 13:10 nitrofurantoin (From Allergy Rash Verified 05/13/25 13:10 Macrobid) Family History Father Cancer Mother COPD (chronic obstructive pulmonary disease) Alcoholism Grandmother Hypertension Thyroid disorder Surgical History History of surgery History of colonoscopy History of lumpectomy of right breast Hx of inguinal herniorrhaphy Social History household members: none Smoking Status: Former smoker [...] not use caffeine: Yes ROS ROS ED ROS Narrative Constitutional: Negative for fever, chills, malaise. CVS: Negative for palpitations, chest pain, syncope. Respiratory: Positive for shortness of breath. GI: Negative for abdominal pain, nausea, vomiting, melena, hematochezia. EXAM Physical Exam Narrative Exam Narrative: CONST: Patient on nonrebreather in moderate respiratory distress. EYES: Normal inspection. NECK: Normal inspection. RESP: Lung sounds severely diminished. No overt wheezing. CVS: Regular rate and rhythm, no murmur, no gallop. ABD: Soft and nontender, no guarding or rebound, nondistended. SKIN: Color normal, no rash, warm, dry, intact. EXTREMITIES: Normal appearance, 2+ pitting edema both lower legs. NEURO: Alert and answering questions appropriately. PSYCH: Normal affect. Const Vital Signs: 05/13/25 13:10 05/13/25 13:15 05/13/25 13:30 Temperature 98.7 F Temperature Source Oral Pulse Rate 109 H 105 H 101 H Respiratory Rate 26 H 27 H 25 H Respiratory Pattern Blood Pressure 132/99 H 147/55 H Blood Pressure Mean 110 82 Pulse Ox 87 82 96 Oxygen Delivery Method Nasal Cannula Oxygen Flow Rate (L/min) 3 Fraction of Inspired Oxygen (FIO2) 05/13/25 13:45 05/13/25 13:56 05/13/25 13:56 Temperature Temperature Source Pulse Rate 98 101 H Respiratory Rate 28 H 24 H Respiratory Pattern Tachypnea Tachypnea Blood Pressure 124/65 H Blood Pressure Mean 76 Pulse Ox 93 Oxygen Delivery Method Oxygen Flow Rate (L/min) Fraction of Inspired Oxygen (FIO2) 40 05/13/25 14:00 05/13/25 14:15 05/13/25 14:30 Temperature Temperature Source Pulse Rate 98 109 H Respiratory Rate 26 H 26 H Respiratory Pattern Blood Pressure 141/62 H 139/64 H 132/49 H Blood Pressure Mean 86 87 67 Pulse Ox 85 89 Oxygen Delivery Method Oxygen Flow Rate (L/min) Fraction of Inspired Oxygen (FIO2) 05/13/25 14:45 05/13/25 15:00 05/13/25 15:15 Temperature Temperature Source Pulse Rate 98 105 H 105 H Respiratory Rate 32 H 21 H 28 H Respiratory Pattern Blood Pressure 138/54 H 152/49 H 182/83 H Blood Pressure Mean 79 74 104 Pulse Ox 94 95 96 Oxygen Delivery Method Oxygen Flow Rate (L/min) Fraction of Inspired Oxygen (FIO2) 05/13/25 15:30 05/13/25 15:45 05/13/25 16:00 Temperature Temperature Source Pulse Rate 112 H 109 H 109 H Respiratory Rate 27 H 28 H 27 H Respiratory Pattern Blood Pressure 183/81 H 159/76 H 130/62 H Blood Pressure Mean 104 100 73 Pulse Ox 95 96 90 Oxygen Delivery Method Oxygen Flow Rate (L/min) Fraction of Inspired Oxygen (FIO2) 05/13/25 16:30 05/13/25 17:00 05/13/25 17:30 Temperature Temperature Source Pulse Rate 111 H 117 H 111 H Respiratory Rate 23 H 24 H 23 H Respiratory Pattern Blood Pressure 141/119 H Blood Pressure Mean 126 Pulse Ox 84 88 74 Oxygen Delivery Method Oxygen Flow Rate (L/min) Fraction of Inspired Oxygen (FIO2) 05/13/25 18:00 Temperature Temperature Source Pulse Rate 86 Respiratory Rate 17 Respiratory Pattern Blood Pressure Blood Pressure Mean Pulse Ox 93 Oxygen Delivery Method Oxygen Flow Rate (L/min) Fraction of Inspired Oxygen (FIO2) MDM MDM MDM Narrative Medical decision making narrative: 69-year-old female with past medical history of A-fib/a flutter on Eliquis, COPDon chronic oxygen, CHF presents with increasing shortness of breath and leg swelling despite increasing diuretics outpatient. She is in moderate respiratory distress. On my initial exam she was on nonrebreather at 10 L stillsatting in the mid 80s-% so she was turned up to 15 L. Lung sounds are severelydiminished. There is symmetric lower leg pitting edema. Even on 15 L she remain hypoxic so was placed on BiPAP. Differential includes but not limited to congestive heart failure exacerbation, ACS, pneumonia, PE with anticoagulation failure. She was given DuoNebs and IV Lasix 40 mg. ABG shows normal pH but CO2 retentionat 92.9. CBC shows normal white count at 10.1 and hemoglobin of 10.1 slightly lower than previous 11 range. Electrolytes are unremarkable except for hypochloremia at 93 which appears chronic. Normal renal function. Troponin is less than 6. BNP is 2554 which appears similar to earlier this month. CTA shows no evidence of central PE but contrast timing was suboptimal for evaluation of more distal branches. There is extensive emphysema and scarring but no evidence of pneumonia. There is similar-appearing pulmonary nodules. With her significant CO2 retention I suspect this is a mixed picture of COPD/CHF. I discussed the case with the hospitalist for admission to the PCU. External records reviewed: Last echo was 02/20/2025 with EF of 45 to 50%, moderate mitral valve insufficiency. History & Record Review Discussion w/independent historian: Patient Additional record(s) reviewed:: Prior inpatient record, Prior ED visit and Priorlabs Lab Data Attestation: I reviewed the patient's lab results. Labs: Laboratory Results - last 24 hr 05/13/25 05/13/25 13:40 16:05 WBC 10.1 RBC 3.37 L Hgb 10.1 L Hct 34.1 L MCV 101.2 H MCH 30.0 MCHC 29.6 L RDW Std Deviation 56.6 H RDW Coeff of Karly 15.3 H Plt Count 115 L MPV 11.1 Immature Gran % (Auto) 0.700 Neut % (Auto) 85.1 H Lymph % (Auto) 6.1 L [place] % (Auto) 7.4 Eos % (Auto) 0.1 Baso % (Auto) 0.6 Absolute Neuts (auto) 8.6 H Absolute Lymphs (auto) 0.61 L Nucleated RBC % 0 Sodium 143 Potassium 4.7 Chloride 93 L Carbon Dioxide 36.5 H Anion Gap 14 BUN 25 H Creatinine 0.58 L Estim Creat Clear Calc 86.37 Est GFR (MDRD) Non-Af 99 BUN/Creatinine Ratio 43.3 H Glucose 97 Calcium 8.8 Total Bilirubin 0.51 AST 27 ALT 18 Alkaline Phosphatase 121 H Troponin T High Sens < 6 Troponin T Hi Sens 2 Hr < 6 NT pro BNP II 2554 H Total Protein 7.0 Albumin 3.1 L Globulin 3.9 Albumin/Globulin Ratio 0.8 L ABG Data ABG results: ABG 05/13/25 13:33 Specimen Type ART Sample Site R Radial pH 7.36 Bicarbonate Actual 52.6 H Total CO2 > 50 Base Excess 27 H O2 Saturation 95 O2 % 15.0 ABG pCO2 92.9 H* ABG pO2 85 [place] Test Positive O2 Delivery Device Cannula Vent Mode Not entered Crit Call To/Read Back Yes Blood Gas Notified Whom glauthia Blood Gas Notified Time 13:37:54 Radiography Diagnostic Testing: Clinical Impression(s) from Imaging Studies Chest CTA 05/13/25 13:49 IMPRESSION: 1. Markedly limited exam, without evidence [...] of malignancy or associated symptoms. Reading Location: [facility] EKG Initial EKG: Attestation: I personally reviewed and interpreted this EKG as follows: Interpretation: Atrial Flutter Comments: Atrial flutter at 106 bpm with RVR Rightward axis No STEMI Prior EKG tracings: available for review Prior: Unchanged Discharge Plan Dx/Rx/DC Orders Clinical Impression: Acute hypercapnic respiratory failure, History of COPD, History of heart failure Disposition Disposition: Acute Care Hospital [facility] Discharge Date/Time: 05/13/25 19:04 What to do if you have Problems For any increased pain, shortness of breath, bleeding, nausea or vomiting, chestpain, or any unexpected problems, contact your Primary Care Provider. Call [facility] ([phone]) or report to the closest Emergency Room. Call 911 if necessary. 05/13/252141 <Electronically signed by Malika LYNN> Cosigner Signature (if applicable): 05/15/25 1511 <Electronically signed by Linwood Ivy DO> CC: Dr. Phuc Martines DO ~ Signed [facility] Work Phone: [phone]) 597-744307-19-2025 Progress note Author George Polanco [facility] Note Date/Time May 15, 2025 1:33 pm [facility] Medical Records Department [address] [place] [address] Progress Note - Hospitalist 05/15/25 1316 MR#: [id number] Acct: [id number] Name: RAJENDRA LUCERO Rep #:[id number] : 1955 69 From: George Willis PCP: Dr. Phuc Martines DO Status:AD M IN Location: [place] [address] Reason for Visit Chief Complaint: Worsening shortness of breath and leg swelling Objective Data Objective Data Vital Signs: Vital Signs Temp Pulse Resp BP Pulse Ox O2 Del Method O2 Flow Rate 97.6 F L 79 16 120/68 92 High Flow 8 05/15/25 09:11 05/15/25 10:46 05/15/25 10:46 05/15/25 09:14 05/15/25 09:11 05/15/25 09:11 05/15/25 09:11 FiO2 40 05/15/25 04:00 Oxygen Flow Rate (L/min) 8 Oxygen Delivery Method High Flow Weight: 262 lb 2.991 oz Body Mass Index (BMI) 45.0 Intake & Output: Intake and Output for Last 24 Hours 05/13/25 05/14/25 05/15/25 23:59 23:59 23:59 Intake Total 1280 / 1280 Output Total 3400 / 3400 400 / 400 Balance -2120 / -2120 -400 / -400 Lab / Micro Data 05/15/25 04:58 05/15/25 04:58 Labs: Laboratory Results - last 24 hr 05/15/25 04:58: WBC 7.5, RBC 3.18 L, Hgb 9.6 L, Hct 32.3 L, MCV 101.6 H, MCH 30.2, MCHC 29.7 L, RDW Std Deviation 56.8 H, RDW Coeff of Karly 15.2 H, Plt Count TNP, MPV 11.4, Immature Gran % (Auto) 0.500, Neut % (Auto) 94.0 H, Lymph % (Auto) 4.3 L, [place] % (Auto) 1.1, Eos % (Auto) 0.0, Baso % (Auto) 0.1, Absolute Neuts (auto) 7.0, Absolute Lymphs (auto) 0.32 L, Nucleated RBC % 0, Platelet Estimate A, Plt Morphology Comment CLUMPED , Sodium 144, Potassium 4.6, Chloride 92 L, Carbon Dioxide 40.8 H, Anion Gap 12,BUN 23 H, Creatinine 0.63 L, Estim Creat Clear Calc 86.60, Est GFR (MDRD) Non-Af97, BUN/Creatinine Ratio 36.8 H, Glucose 137 H, Calcium 9.6 Physical Exam Narrative Seen and examined. Patient admitted with extreme shortness of breath and felt mild sharp chest pain/stabbing in sensation. Chest pain was more left-sided, couple times lastedfor short time about 2 to 3 minutes. She has chronic cough with mild increase in severity. No fever. No dysuria. Did not move bowels for couple days. Physical exam General: Alert, Oriented x3, Cooperative. BMI 45.0 kg/m? HEENT: Atraumatic, PERRLA, EOMI, Normocephalic. Oral: No Gingival or Mucosal Lesions/ Ulcerations Neck: Supple, No JVD, Negative Carotid Bruits Chest wall/Lungs: Air entry mild diminished diffusely. Lungs mild expiratory rhonchi in the bases but better than yesterday Cardiovascular: Regular rate and rhythm, Normal S1,S2, No M/G/R Abdomen: Bowel Sounds Present, Soft, Non Tender, Non-Distended : No dysuria. No renal angle tenderness. No suprapubic tenderness. Extremities: Bilateral 2+ pitting edema, Capillary Refill Less than 3 Seconds Skin: No rashes, No breakdown Musculoskeletal: No Tenderness to Palpation of Joints or Extremities Neurological: Cranial nerves II-XII grossly intact, DTR 2+/4. No acute focal neurological deficit. Psych/Mental Status: Flat affect. Assessment & Plan Assessment/Plan (1) Acute and chronic respiratory failure with hypercapnia: (2) Acute on chronic heart failure with preserved ejection fraction (HFpEF): PLAN: Plan Patient is a 69-year-old female who presented to [facility] ED on 05/13/2025 with worsening shortness of breath and lower extremity swelling. 1. Acute on chronic hypercapnic respiratory failure most likely due to COPD andheart failure exacerbation ? Admit under inpatient status to PCU. Suspect multifactorial due to acute on chronic HFpEF and untreated ROXY as below. ABG on admit with pH 7.36 but pCO2 92. Patient on 3.5 L at rest and 6 L on exertion at baseline. CTA chest showedno PE and no pleural effusions with mild vascular congestion, severe centrilobular emphysematous changes. Patient improved on the BiPAP, did not require intubation. 05/14: Still on high flow oxygen, 10 L, respiratory rate 20/min. Continue BiPAP during naps and at night and as needed for respiratory fatigue. Patient is being managed on scheduled bronchodilator, IV Solu-Medrol, Mucinex, incentive spirometry and Pep. Atypical chest pain described as pulmonary related, 2 serial troponins are negative. ACS ruled out. Respiratory panel negative. 05/15: Patient is doing better than yesterday with better ventilation and oxygenation. 2. Acute on chronic HFpEF with moderate pulmonary hypertension, mild valvular heart disease ? Mild vascular congestion on chest imaging and +1-2 lower extremity pitting edema on exam noted. BNP 2554, though notably BNP was 2566 on 05/07. However, patient was on Lasix 60 mg twice daily without much improvement. IV Lasix 40 mgtwice daily for now, monitor daily BMP and urine output. Continue home dapagliflozin. Recent echo 02/19/2025 Interpretation Summary Borderline LV systolic function. Estimated LVEF 45-50%. Moderate global right ventricular systolic dysfunction. There is mild biatrial dilatation. Moderate (2+) eccentric mitral valve insufficiency. Mild tricuspid valve insufficiency. Right ventricular systolic pressure estimated to be 53 mmHg. The study was technically difficult. 05/15 continue diuresis. 3. Class III obesity with ROXY not on home PAP therapy ? BMI 45 on admit. Complicates hospital course and care. Patient reports having sleep study done in the past but did not think she could tolerate PAP therapy and has never had a PAP machine at home. Continue PAP therapy at night and with naps while inpatient as noted above. digital project manager to help, set up sleep study shortly after discharge. 05/15 on BiPAP. 4. Paroxysmal A-fib/flutter on Eliquis, hypertension, hyperlipidemia, history of VTE ? Follows with outpatient cardiology. In rate controlled atrial flutter with rate in the 100s on admit. EKG showed atrial flutter with rate 106 bpm. Normotensive to hypertensive in the ED. Continue home Eliquis, amiodarone, diltiazem, Lopressor and atorvastatin. 5. Alcohol abuse ? Patient reports drinking 2 alcoholic drinks daily and on chart review, she reported 2 drinks a day during recent admission at the end of March. However, daughter noted that there are days where patient will drink 4-5 alcoholic drinks. on CIOR protocol without medications for now. Monitor. 6. History of tobacco abuse ? Encouraged continued cessation. 7. Solitary pulmonary nodules: Unchanged solid nodule in the right upper lobe measuring 1.2 x 0.4 cm, RUL measuring 3 mm. Also shows extensive centrilobular and paraseptal emphysema. Biapical scarring. Linear consolidation at posteriorlung bases, right greater than left DVT prophylaxis: Not indicated, on Eliquis 5 mg twice daily. CODE STATUS: Full code, verified Laboratory Results 05/15/25 04:58: WBC 7.5, RBC 3.18 L, Hgb 9.6 L, Hct 32.3 L, MCV 101.6 H, MCH 30.2, MCHC 29.7 L, RDW Std Deviation 56.8 H, RDW Coeff of Karly 15.2 H, Plt Count TNP, MPV 11.4, Immature Gran % (Auto) 0.500, Neut % (Auto) 94.0 H, Lymph % (Auto) 4.3 L, [place] % (Auto) 1.1, Eos % (Auto) 0.0, Baso % (Auto) 0.1, Absolute Neuts (auto) 7.0, Absolute Lymphs (auto) 0.32 L, Nucleated RBC % 0, Platelet Estimate A, Plt Morphology Comment CLUMPED, Sodium 144, Potassium 4.6, Chloride 92 L, Carbon Dioxide 40.8 H, Anion Gap 12, BUN 23 H, Creatinine 0.63 L, Estim Creat Clear Calc 86.60, Est GFR (MDRD) Non-Af 97, BUN/Creatinine Ratio 36.8 H, Glucose 137 H, Calcium 9.6 Clinical Impression(s) from Imaging Studies Chest CTA 05/13/25 13:49 IMPRESSION: 1. Markedly limited exam, without evidence [...] of malignancy or associated symptoms. Reading Location: [id number] Charges/Coding Visit Charges Inpatient E&M: 39083 Subs Hosp L2 05/15/25 9568 <Electronically signed by George Polanco MD> Cosigner Signature (if applicable): CC: ~ Signed [facility] Work Phone: [phone] 729-921607-19-2025 Discharge summary [facility] Medical Records Department [address] [place] [address] Emergency Department Summary 05/13/25 MR#: [id number] Acct: [id number] Name: RAJENDRA LUCERO Rep #:[id number] : 1955 69 From: Malika LYNN PCP: Dr. Phuc Martines, DO Status:AD M IN Location: [place] [address] Patient was seen and examined with physician nurses medical assistants phlebotomists Malika All components of the history and physical confirmed and agreed. History of present illness and physical exam: Patient is a 69-year-old female with past medical history hypertension, hyperlipidemia, atrial fibrillation/flutter on Eliquis, heart failure with preserved ejection fraction, COPD on 3 to 6 L nasal cannula at baseline, ROXY, alcohol use who presents to the emergency department the chief complaint of worsening shortness of breath and bilateral leg swelling. She states that she was recently admitted to the hospital and states that despite this she feels that her breathing had not been much difference upon discharge. She notes that at home she wears 3.5 L at rest and 6 L with activity. She states that she is on Lasix 40 mg twice daily and notes that she on her visit with cardiology on 05/07 shewas instructed to increase Lasix to 60 mg twice daily for 5 days and they started her on Farxiga 10mg daily. Per EMS when they arrived they noted that she was hypoxic therefore they placed her on nonrebreather. Review of systems: Agree with above Physical exam: Agree with above [facility] Patient is a 69-year-old female who presented to the emergency department the chief complaint of worsening dyspnea on exertion and increased bilateral lower extremity edema. Once workup is obtained and reviewed she will be reevaluated. Patient's CBC was reviewed which showed a white blood cell that was normal at 10.1, hemoglobin 10.1, platelet count of 115. Patient sodium was 143, potassiumwas 4.7, creatinine was 0.58. Patient's AST and ALT were 27 and 18 respectively, troponin was less than 6 with a delta troponin of less than 6. Patient's EKG reviewed and showed atrial flutter with a rate of 106 bpm. Patient's proBNP [id number]. Patient's ABG obtained reviewed showed pH 7.36 with a PCO2 92.9. Patient CTA of the chest wasreviewed and showed markedly limited exam without evidence of central pulmonary embolism. There wassimilar appearance of the lungs on CT at 02/20/2025 which included solid pulmonary nodulemeasuring up to 1.2 cm in size. Recommend repeat CT in 6 to 12 months and pulmonary referral. Multiple hypodense lesions in the spleen measuring 2.[address] abdomen pelvis. At this point in time given her increased oxygen requirements there is concern for COPD/CHF exacerbation therefore patient's case was discussed with hospitalist for admission[facility] Patient was updated as well as for member all question concerns answered at bedside. Final impression: CHF exacerbation COPD exacerbation Acute on chronic hypoxic respiratory failure Disposition: Patient will be admitted to the hospital further evaluation management Supervising attending attestation: Linwood GERMAIN History of Present Illness Chief Complaint: Shortness of Breath Narrative Narrative: 69-year-old female past medical history of HTN, HLD, A-fib/flutter on Eliquis, HFpEF, COPD on 3 to 6 L at baseline, ROXY, alcohol use states over the last few days she has had increasing shortness of breath and bilateral leg swelling. Shewas recently admitted from 04/23 through 04/27 for atrial flutterwith RVR and mildCOPD exacerbation from a suspected viral infection. States at home she wears 3.5 Lof O2 at rest and 6 L with activity. She has had increasing leg swelling. She was on Lasix 40 mg twice daily and had a cardiology visit on 05/07 and was instructed to increase Lasix to 60 mg twice daily for 5 days and start Farxiga 10 mg daily. Today she feels more short of breath and is requiring more oxygen. No chest pain. No fever or chills. No nausea vomiting or abdominal pain. [facility] Medical History Atrial flutter with rapid ventricular response Pulmonary nodule Atrial flutter Shortness of breath ROXY (obstructive sleep apnea) Leiomyoma of uterus Internal hemorrhoids with complication Hypertension Diverticulosis of colon Chronic hypoxemic respiratory failure Alcohol abuse Former smoker On home oxygen therapy Irregular heart beat Atrial fibrillation COPD (chronic obstructive pulmonary disease) Home Medications ?Medication ?Instructions ?Recorded ?Last Taken ?Type Oxygen, Home [Home Oxygen] 2 - 4 lpm QHS sob/copd 10/2804/23/25 History albuterol sulfate 90 mcg/actuation 2 inh inhalation Q6 H PRN shortness 02/19/25 05/13/25 History breath activated powder inhaler of breath fluticasone fur. 200 mcg-umeclid 1 ea inhalation DAILY sob 02/19/25 05/12/25 History 62.5 mcg-vilant 25 mcg inhalat.powder (Trelegy Ellipta) guaifenesin 1,200 mg tablet, 1,200 mg PO BID PRN cough 02/19/25 Unknown History extended release 12 hr (Mucus Relief ER) ipratropium 0.5 mg-albuterol 3 mg 3 ml inhalation Q6H PRN shortness 02/19/25 02/19/25 History (2.5 mg base)/3 mL nebulization of breath soln multivitamin (Daily Multi-Vitamin 1 tab PO DAILY suppl ement 02/19/25 05/12/25 History tablet) sodium chloride 0.65 % nasal spray 1 spray intranasal BID PRN dry 02/19/25 Unknown History aerosol ([place] Saline) nasal passages ascorbic acid (vitamin C) 500 mg 500 mg PO DAILY PRN s upplement 03/30/25 Unknown History capsule cinnamon bark 500 mg capsule 500 mg PO QDAY supplement 03/30/25 05/12/25 History (Cinnamon) mecobalamin (vitamin B12) 1,000 1,000 mcg PO QDAY supp lement 03/30/25 05/12/25 History mcg chewable tablet nystatin 100,000 unit/gram topical 1 applic topical BI D skin rash 04/23/25 05/12/25 History cream apixaban 5 mg tablet (Eliquis) 5 mg PO BID blood thinn er #180 tabs 05/07/25 05/12/25 Rx atorvastatin 40 mg tablet 40 mg PO QHS #90 tabs 05/12/25 Rx dapagliflozin propanediol 10 mg 10 mg PO QAM #30 tabs 05/07/25 05/12/25 Rx tablet (Farxiga) diltiazem HCl 180 mg 180 mg PO Q12 #180 caps 04/2705/12/25 Rx capsule,extended release 24 hr furosemide 40 mg tablet 40 mg PO BID diuretic #180 t abs 05/07/25 05/12/25 Rx metoprolol tartrate 50 mg tablet 50 mg PO BID blood pr essure #180 05/07/25 05/12/25 Rx tabs potassium chloride 20 mEq 20 meq PO BID supplement #18 0 tabs 05/07/25 05/12/25 Rx tablet,extended release(part/cryst) (Klor-Con M) amiodarone 200 mg tablet 200 mg PO DAILY Afib 5 05/12/25 History Allergy/AdvReac Type Severity Reaction Status Date / Time ibuprofen (From Advil) Allergy Mild Hives Verified 05/13/25 13:10 nitrofurantoin (From Allergy Rash Verified 05/13/25 13:10 Macrobid) Family History Father Cancer Mother COPD (chronic obstructive pulmonary disease) Alcoholism Grandmother Hypertension Thyroid disorder Surgical History History of surgery History of colonoscopy History of lumpectomy of right breast Hx of inguinal herniorrhaphy Social History household members: none Smoking Status: Former smoker [...] not use caffeine: Yes ROS ROS ED ROS Narrative Constitutional: Negative for fever, chills, malaise. CVS: Negative for palpitations, chest pain, syncope. Respiratory: Positive for shortness of breath. GI: Negative for abdominal pain, nausea, vomiting, melena, hematochezia. EXAM Physical Exam Narrative Exam Narrative: CONST: Patient on nonrebreather in moderate respiratory distress. EYES: Normal inspection. NECK: Normal inspection. RESP: Lung sounds severely diminished. No overt wheezing. CVS: Regular rate and rhythm, no murmur, no gallop. ABD: Soft and nontender, no guarding or rebound, nondistended. SKIN: Color normal, no rash, warm, dry, intact. EXTREMITIES: Normal appearance, 2+ pitting edema both lower legs. NEURO: Alert and answering questions appropriately. PSYCH: Normal affect. Const Vital Signs: 05/13/25 13:10 05/13/25 13:15 05/13/25 13:30 Temperature 98.7 F Temperature Source Oral Pulse Rate 109 H 105 H 101 H Respiratory Rate 26 H 27 H 25 H Respiratory Pattern Blood Pressure 132/99 H 147/55 H Blood Pressure Mean 110 82 Pulse Ox 87 82 96 Oxygen Delivery Method Nasal Cannula Oxygen Flow Rate (L/min) 3 Fraction of Inspired Oxygen (FIO2) 05/13/25 13:45 05/13/25 13:56 05/13/25 13:56 Temperature Temperature Source Pulse Rate 98 101 H Respiratory Rate 28 H 24 H Respiratory Pattern Tachypnea Tachypnea Blood Pressure 124/65 H Blood Pressure Mean 76 Pulse Ox 93 Oxygen Delivery Method Oxygen Flow Rate (L/min) Fraction of Inspired Oxygen (FIO2) 40 05/13/25 14:00 05/13/25 14:15 05/13/25 14:30 Temperature Temperature Source Pulse Rate 98 109 H Respiratory Rate 26 H 26 H Respiratory Pattern Blood Pressure 141/62 H 139/64 H 132/49 H Blood Pressure Mean 86 87 67 Pulse Ox 85 89 Oxygen Delivery Method Oxygen Flow Rate (L/min) Fraction of Inspired Oxygen (FIO2) 05/13/25 14:45 05/13/25 15:00 05/13/25 15:15 Temperature Temperature Source Pulse Rate 98 105 H 105 H Respiratory Rate 32 H 21 H 28 H Respiratory Pattern Blood Pressure 138/54 H 152/49 H 182/83 H Blood Pressure Mean 79 74 104 Pulse Ox 94 95 96 Oxygen Delivery Method Oxygen Flow Rate (L/min) Fraction of Inspired Oxygen (FIO2) 05/13/25 15:30 05/13/25 15:45 05/13/25 16:00 Temperature Temperature Source Pulse Rate 112 H 109 H 109 H Respiratory Rate 27 H 28 H 27 H Respiratory Pattern Blood Pressure 183/81 H 159/76 H 130/62 H Blood Pressure Mean 104 100 73 Pulse Ox 95 96 90 Oxygen Delivery Method Oxygen Flow Rate (L/min) Fraction of Inspired Oxygen (FIO2) 05/13/25 16:30 05/13/25 17:00 05/13/25 17:30 Temperature Temperature Source Pulse Rate 111 H 117 H 111 H Respiratory Rate 23 H 24 H 23 H Respiratory Pattern Blood Pressure 141/119 H Blood Pressure Mean 126 Pulse Ox 84 88 74 Oxygen Delivery Method Oxygen Flow Rate (L/min) Fraction of Inspired Oxygen (FIO2) 05/13/25 18:00 Temperature Temperature Source Pulse Rate 86 Respiratory Rate 17 Respiratory Pattern Blood Pressure Blood Pressure Mean Pulse Ox 93 Oxygen Delivery Method Oxygen Flow Rate (L/min) Fraction of Inspired Oxygen (FIO2) MDM MDM MDM Narrative Medical decision making narrative: 69-year-old female with past medical history of A-fib/a flutter on Eliquis, COPDon chronic oxygen, CHF presents with increasing shortness of breath and leg swelling despite increasing diuretics outpatient. She is in moderate respiratory distress. On my initial exam she was on nonrebreather at 10 L stillsatting in the mid 80s-% so she was turned up to 15 L. Lung sounds are severelydiminished. There is symmetric lower leg pitting edema. Even on 15 L she remain hypoxic so was placed on BiPAP. Differential includes but not limited to congestive heart failure exacerbation, ACS, pneumonia, PE with anticoagulation failure. She was given DuoNebs and IV Lasix 40 mg. ABG shows normal pH but CO2 retentionat 92.9. CBC shows normal white count at 10.1 and hemoglobin of 10.1 slightly lower than previous 11 range. Electrolytesare unremarkable except for hypochloremia at 93 which appears chronic. Normal renal function. Troponin is less than 6. BNP is 2554 which appears similar to earlier this month. CTA shows no evidence of central PE but contrast timing was suboptimal for evaluation of more distal branches. There is extensive emphysema and scarring but no evidence of pneumonia. There is similar-appearing pulmonary nodules. With her significant CO2 retention I suspect this is a mixed picture of COPD/CHF. I discussed the case with the hospitalist for admission to the PCU. External records reviewed: Last echo was 02/20/2025 with EF of 45 to 50%, moderate mitral valve insufficiency. History & Record Review Discussion w/independent historian: Patient Additional record(s) reviewed:: Prior inpatient record, Prior ED visit and Priorlabs Lab Data Attestation: I reviewed the patient's lab results. Labs: Laboratory Results - last 24 hr 05/13/25 05/13/25 13:40 16:05 WBC 10.1 RBC 3.37 L Hgb 10.1 L Hct 34.1 L MCV 101.2 H MCH 30.0 MCHC 29.6 L RDW Std Deviation 56.6 H RDW Coeff of Karly 15.3 H Plt Count 115 L MPV 11.1 Immature Gran % (Auto) 0.700 Neut % (Auto) 85.1 H Lymph % (Auto) 6.1 L [place] % (Auto) 7.4 Eos % (Auto) 0.1 Baso % (Auto) 0.6 Absolute Neuts (auto) 8.6 H Absolute Lymphs (auto) 0.61 L Nucleated RBC % 0 Sodium 143 Potassium 4.7 Chloride 93 L Carbon Dioxide 36.5 H Anion Gap 14 BUN 25 H Creatinine 0.58 L Estim Creat Clear Calc 86.37 Est GFR (MDRD) Non-Af 99 BUN/Creatinine Ratio 43.3 H Glucose 97 Calcium 8.8 Total Bilirubin 0.51 AST 27 ALT 18 Alkaline Phosphatase 121 H Troponin T High Sens < 6 Troponin T Hi Sens 2 Hr < 6 NT pro BNP II 2554 H Total Protein 7.0 Albumin 3.1 L Globulin 3.9 Albumin/Globulin Ratio 0.8 L ABG Data ABG results: ABG 05/13/25 13:33 Specimen Type ART Sample Site R Radial pH 7.36 Bicarbonate Actual 52.6 H Total CO2 > 50 Base Excess 27 H O2 Saturation 95 O2 % 15.0 ABG pCO2 92.9 H* ABG pO2 85 [place] Test Positive O2 Delivery Device Cannula Vent Mode Not entered Crit Call To/Read Back Yes Blood Gas Notified Whom [facility] Blood Gas Notified Time 13:37:54 Radiography Diagnostic Testing: Clinical Impression(s) from Imaging Studies Chest CTA 05/13/25 13:49 IMPRESSION: 1. Markedly limited exam, without evidence of central pulmonary embolism. Consider repeating this exam if there is persistent concern for a more distal embolism. 2. Similar appearance of the lungs compared to CT on 02/20/2025, to include solid pulmonary nodulesmeasuring up to 1.2 cm in size. Recommend repeat CT in 6-12 months, and Pulmonology referral if not already performed. 3. Multiple hypodense lesions in the spleen measuring up to 2.[address] abdomenand pelvis for further evaluation, particularly if the patient has a history of malignancy or associated symptoms. Reading Location: [facility] EKG Initial EKG: Attestation: I personally reviewed and interpreted this EKG as follows: Interpretation: Atrial Flutter Comments: Atrial flutter at 106 bpm with RVR Rightward axis No STEMI Prior EKG tracings: available for review Prior: Unchanged Discharge Plan Dx/Rx/DC Orders Clinical Impression: Acute hypercapnic respiratory failure, History of COPD, History of heart failure Disposition Disposition: Acute Care Hospital [facility] Discharge Date/Time: 05/13/25 19:04 What to do if you have Problems For any increased pain, shortness of breath, bleeding, nausea or vomiting, chestpain, or any unexpected problems, contact your Primary Care Provider. Call [facility] ([phone]) or report tothe closest Emergency Room. Call 911 if necessary. 05/13/252141 Cosigner Signature (if applicable): 05/15/25 1511 CC: Dr. Phuc Martines, DO ~ Signed [facility]07-19-2025 Progress note [facility] Medical Records Department [address] [place] [address] Progress Note - Hospitalist 05/15/25 1316 MR#: [id number] Acct: [id number] Name: RAJENDRA LUCERO Rep #:[id number] : 1955 69 From: George Willis PCP: Dr. Phuc Martines DO Status:AD IN Location: [place] [address] Reason for Visit Chief Complaint: Worsening shortness of breath and leg swelling Objective Data Objective Data Vital Signs: Vital Signs Temp Pulse Resp BP Pulse Ox O2 Del Method O2 Flow Rate 97.6 F L 79 16 120/68 92 High Flow 8 05/15/25 09:11 05/15/25 10:46 05/15/25 10:46 05/15/25 09:14 05/15/25 09:11 05/15/25 09:11 05/15/25 09:11 FiO2 40 05/15/25 04:00 Oxygen Flow Rate (L/min) 8 Oxygen Delivery Method High Flow Weight: 262 lb 2.991 oz Body Mass Index (BMI) 45.0 Intake & Output: Intake and Output for Last 24 Hours 05/13/25 05/14/25 05/15/25 23:59 23:59 23:59 Intake Total 1280 / 1280 Output Total 3400 / 3400 400 / 400 Balance -2120 / -2120 -400 / -400 Lab / Micro Data 05/15/25 04:58 05/15/25 04:58 Labs: Laboratory Results - last 24 hr 05/15/25 04:58: WBC 7.5, RBC 3.18 L, Hgb 9.6 L, Hct 32.3 L, MCV 101.6 H, MCH 30.2, MCHC 29.7 L, RDWStd Deviation 56.8 H, RDW Coeff of Karly 15.2 H, Plt Count TNP, MPV 11.4, Immature Gran % (Auto) 0.500, Neut % (Auto) 94.0 H, Lymph % (Auto) 4.3 L, [place] % (Auto) 1.1, Eos % (Auto) 0.0, Baso % (Auto) 0.1, Absolute Neuts (auto) 7.0, Absolute Lymphs (auto) 0.32 L, Nucleated RBC % 0, Platelet Estimate A,Plt Morphology Comment CLUMPED , Sodium 144, Potassium 4.6, Chloride 92 L, Carbon Dioxide 40.8 H, Anion Gap 12,BUN 23 H, Creatinine 0.63 L, Estim Creat Clear Calc 86.60, Est GFR (MDRD) Non-Af97, BUN/Creatinine Ratio 36.8 H, Glucose 137 H, Calcium 9.6 Physical Exam Narrative Seen and examined. Patient admitted with extreme shortness of breath and felt mild sharp chest pain/stabbing in sensation. Chest pain was more left-sided, couple times lastedfor short time about 2 to 3 minutes. She haschronic cough with mild increase in severity. No fever. No dysuria. Did not move bowels for couple days. Physical exam General: Alert, Oriented x3, Cooperative. BMI 45.0 kg/m? HEENT: Atraumatic, PERRLA, EOMI, Normocephalic. Oral: No Gingival or Mucosal Lesions/ Ulcerations Neck: Supple, No JVD, Negative Carotid Bruits Chest wall/Lungs: Air entry mild diminished diffusely. Lungs mild expiratory rhonchi in the bases but better than yesterday Cardiovascular: Regular rate and rhythm, Normal S1,S2, No M/G/R Abdomen: Bowel Sounds Present, Soft, Non Tender, Non-Distended : No dysuria. No renal angle tenderness. No suprapubic tenderness. Extremities: Bilateral 2+ pitting edema, Capillary Refill Less than 3 Seconds Skin: No rashes, No breakdown Musculoskeletal: No Tenderness to Palpation of Joints or Extremities Neurological: Cranial nerves II-XII grossly intact, DTR 2+/4. No acute focal neurological deficit. Psych/Mental Status: Flat affect. Assessment & Plan Assessment/Plan (1) Acute and chronic respiratory failure with hypercapnia: (2) Acute on chronic heart failure with preserved ejection fraction (HFpEF): PLAN: Plan Patient is a 69-year-old female who presented to [facility] ED on 05/13/2025 with worsening shortness of breath and lower extremity swelling. 1. Acute on chronic hypercapnic respiratory failure most likely due to COPD andheart failure exacerbation ? Admit under inpatient status to PCU. Suspect multifactorial due to acute on chronic HFpEF and untreated ROXY as below. ABG on admit with pH 7.36 but pCO2 92. Patient on 3.5 L at rest and 6 L on exertion at baseline. CTA chest showedno PE and no pleural effusions with mild vascular congestion, severe centrilobular emphysematous changes. Patient improved on the BiPAP, did not require intubation. 05/14: Still on high flow oxygen, 10 L, respiratory rate 20/min. Continue BiPAP during naps and at night and as needed for respiratory fatigue. Patient is being managed on scheduled bronchodilator, IV Solu-Medrol, Mucinex, incentive spirometryand Pep. Atypical chest pain described as pulmonary related, 2 serial troponins are negative. ACS ruled out. Respiratory panel negative. 05/15: Patient is doing better than yesterday with better ventilation and oxygenation. 2. Acute on chronic HFpEF with moderate pulmonary hypertension, mild valvular heart disease ? Mild vascular congestion on chest imaging and +1-2 lower extremity pitting edema on exam noted. BNP 2554, though notably BNP was 2566 on 05/07. However, patient was on Lasix 60 mg twice daily without much improvement. IV Lasix 40 mgtwice daily for now, monitor daily BMP and urine output. Continue home dapagliflozin. Recent echo 02/19/2025 Interpretation Summary Borderline LV systolic function. Estimated LVEF 45-50%. Moderate global right ventricular systolic dysfunction. There is mild biatrial dilatation. Moderate (2+) eccentric mitral valve insufficiency. Mild tricuspid valve insufficiency. Right ventricular systolic pressure estimated to be 53 mmHg. The study was technically difficult. 05/15 continue diuresis. 3. Class III obesity with ROXY not on home PAP therapy ? BMI 45 on admit. Complicates hospital course and care. Patient reports having sleep study done inthe past but did not think she could tolerate PAP therapy and has never had a PAP machine at home. Continue PAP therapy at night and with naps while inpatient as noted above. digital project manager to help, set up sleep study shortly after discharge. 05/15 on BiPAP. 4. Paroxysmal A-fib/flutter on Eliquis, hypertension, hyperlipidemia, history of VTE ? Follows with outpatient cardiology. In rate controlled atrial flutter with rate in the 100s on admit. EKG showed atrial flutter with rate 106 bpm. Normotensive to hypertensive in the ED. Continue home Eliquis, amiodarone, diltiazem, Lopressor and atorvastatin. 5. Alcohol abuse ? Patient reports drinking 2 alcoholic drinks daily and on chart review, she reported 2 drinks a day during recent admission at the end of March. However, daughter noted that there are days where patient will drink 4-5 alcoholic drinks. on CIWA protocol without medications for now. Monitor. 6. History of tobacco abuse ? Encouraged continued cessation. 7. Solitary pulmonary nodules: Unchanged solid nodule in the right upper lobe measuring 1.2 x 0.4 cm, RUL measuring 3 mm. Also shows extensive centrilobular and paraseptal emphysema. Biapical scarring. Linear consolidation at posteriorlung bases, right greater than left DVT prophylaxis: Not indicated, on Eliquis 5 mg twice daily. CODE STATUS: Full code, verified Laboratory Results 05/15/25 04:58: WBC 7.5, RBC 3.18 L, Hgb 9.6 L, Hct 32.3 L, MCV 101.6 H, MCH 30.2, MCHC 29.7 L, RDWStd Deviation 56.8 H, RDW Coeff of Karly 15.2 H, Plt Count TNP, MPV 11.4, Immature Gran % (Auto) 0.500, Neut % (Auto) 94.0 H, Lymph % (Auto) 4.3 L, [place] % (Auto) 1.1, Eos % (Auto) 0.0, Baso % (Auto) 0.1, Absolute Neuts (auto) 7.0, Absolute Lymphs (auto) 0.32 L, Nucleated RBC % 0, Platelet Estimate A,Plt Morphology Comment CLUMPED, Sodium 144, Potassium 4.6, Chloride 92 L, Carbon Dioxide 40.8 H, Anion Gap 12, BUN 23 H, Creatinine 0.63 L, Estim Creat Clear Calc 86.60, Est GFR (MDRD) Non-Af 97, BUN/Creatinine Ratio 36.8 H, Glucose 137 H, Calcium 9.6 Clinical Impression(s) from Imaging Studies Chest CTA 05/13/25 13:49 IMPRESSION: 1. Markedly limited exam, without evidence of central pulmonary embolism. Consider repeating this exam if there is persistent concern for a more distal embolism. 2. Similar appearance of the lungs compared to CT on 02/20/2025, to include solid pulmonary nodulesmeasuring up to 1.2 cm in size. Recommend repeat CT in 6-12 months, and Pulmonology referral if not already performed. 3. Multiple hypodense lesions in the spleen measuring up to 2.[address] abdomenand pelvis for further evaluation, particularly if the patient has a history of malignancy or associated symptoms. Reading Location: [id number] Charges/Coding Visit Charges Inpatient E&M: 87044 Subs Hosp L2 05/15/25 1333 Cosigner Signature (if applicable): CC: ~ Signed [facility]07-18-2025 Progress note Author George Polanco [facility] Note Date/Time May 14, 2025 2:50 pm [facility] Medical Records Department [address] [place] [address] Progress Note - Hospitalist 05/14/25817 MR#: [id number] Acct: [id number] Name: RAJENDRA LUCERO Rep #:[id number] : 1955 69 From: George Willis PCP: Dr. Phuc Martines, DO Status:AD M IN Location: [facility] [id number] Reason for Visit Chief Complaint: Worsening shortness of breath and leg swelling Objective Data Objective Data Vital Signs: Vital Signs Temp Pulse Resp BP Pulse Ox O2 Del Method O2 Flow Rate 97.4 F L 91 19 H 109/57 L 94 High Flow 10 05/14/25 05:20 05/14/25 07:34 05/14/25 07:34 05/14/25 05:20 05/14/25 07:33 05/14/25 07:33 05/14/25 07:33 FiO2 50 05/14/25 03:30 Oxygen Flow Rate (L/min) 10 Oxygen Delivery Method High Flow Weight: 262 lb 3 oz Body Mass Index (BMI) 45.0 Intake & Output: Intake and Output for Last 24 Hours 05/12/25 05/13/25 05/14/25 23:59 23:59 23:59 Intake Total 500 / 500 Output Total 1250 / 1250 Balance -750 / -750 Lab / Micro Data 05/14/25 05:35 05/14/25 05:35 Labs: Laboratory Results - last 24 hr 05/13/25 13:40: WBC 10.1, RBC 3.37 L, Hgb 10.1 L, Hct 34.1 L, MCV 101.2 H, MCH 30.0, MCHC 29.6 L, RDW Std Deviation 56.6 H, RDW Coeff of Karly 15.3 H, Plt Count 115 L, MPV 11.1, Immature Gran % (Auto) 0.700, Neut % (Auto) 85.1 H, Lymph % (Auto) 6.1 L, [place] % (Auto) 7.4, Eos % (Auto) 0.1, Baso % (Auto) 0.6, Absolute Neuts (auto) 8.6 H, Absolute Lymphs (auto) 0.61 L, Nucleated RBC % 0, Sodium 143, Potassium 4.7, Chloride 93 L, Carbon Dioxide 36.5 H, Anion Gap 14, BUN 25 H, Creatinine 0.58 L, Estim Creat Clear Calc 86.37, Est GFR (MDRD) Non-Af 99, BUN/Creatinine Ratio 43.3 H, Glucose 97, Calcium 8.8, Total Bilirubin 0.51, AST 27, ALT 18, Alkaline Phosphatase 121 H, Troponin T High Sens < 6, NT pro BNP II 2554 H, Total Protein 7.0, Albumin 3.1 L, Globulin 3.9, Albumin/Globulin Ratio 0.8 L 05/13/25 16:05: Troponin T Hi Sens 2 Hr < 6 05/14/25 05:35: WBC 8.5, RBC 3.27 L, Hgb 9.9 L, Hct 33.6 L, MCV 102.8 H, MCH 30.3, MCHC 29.5 L, RDW Std Deviation 57.1 H, RDW Coeff of Karly 15.3 H, Plt Count 269, MPV 10.7, Sodium 147 H, Potassium 3.8, Chloride 92 L, Carbon Dioxide 47.9 H*, Anion Gap 7, BUN 21 H, Creatinine 0.68 L, Estim Creat Clear Calc 86.60, Est GFR (MDRD) Non-Af 95, BUN/Creatinine Ratio 30.8 H, Glucose 145 H, Calcium 9.2 ABG Data ABG results: ABG 05/13/25 13:33 Specimen Type ART Sample Site R Radial pH 7.36 Bicarbonate Actual 52.6 H Total CO2 > 50 Base Excess 27 H O2 Saturation 95 O2 % 15.0 ABG pCO2 92.9 H* ABG pO2 85 [place] Test Positive O2 Delivery Device Cannula Vent Mode Not entered Crit Call To/Read Back Yes Blood Gas Notified Whom glauthia Blood Gas Notified Time 13:37:54 Radiography Diagnostic Testing: Radiology Impression Chest CTA 05/13/25 13:49 IMPRESSION: 1. Markedly limited exam, without evidence [...] of malignancy or associated symptoms. Reading Location: [id number] Physical Exam Narrative Seen and examined. Patient admitted with extreme shortness of breath and felt mild sharp chest pain/stabbing in sensation. Chest pain was more left-sided, couple times lastedfor short time about 2 to 3 minutes. She has chronic cough with mild increase in severity. No fever. No dysuria. Did not move bowels for couple days. Physical exam General: Alert, Oriented x3, Cooperative HEENT: Atraumatic, PERRLA, EOMI, Normocephalic. Oral: No Gingival or Mucosal Lesions/ Ulcerations Neck: Supple, No JVD, Negative Carotid Bruits Chest wall/Lungs: Air entry severely diminished. Mild expiratory rhonchi. Cardiovascular: Regular rate and rhythm, Normal S1,S2, No M/G/R Abdomen: Bowel Sounds Present, Soft, Non Tender, Non-Distended : No dysuria. No renal angle tenderness. No suprapubic tenderness. Extremities: Bilateral 2+ pitting edema, Capillary Refill Less than 3 Seconds Skin: No rashes, No breakdown Musculoskeletal: No Tenderness to Palpation of Joints or Extremities Neurological: Cranial nerves II-XII grossly intact, DTR 2+/4. No acute focal neurological deficit. Psych/Mental Status: Flat affect. Assessment & Plan Assessment/Plan (1) Acute and chronic respiratory failure with hypercapnia: (2) Acute on chronic heart failure with preserved ejection fraction (HFpEF): PLAN: Plan Patient is a 69-year-old female who presented to [facility] ED on 05/13/2025 with worsening shortness of breath and lower extremity swelling. 1. Acute on chronic hypercapnic respiratory failure most likely due to COPD andheart failure exacerbation ? Admit under inpatient status to PCU. Suspect multifactorial due to acute on chronic HFpEF and untreated ROXY as below. ABG on admit with pH 7.36 but pCO2 92. Patient on 3.5 L at rest and 6 L on exertion at baseline. CTA chest showedno PE and no pleural effusions with mild vascular congestion, severe centrilobular emphysematous changes. Patient improved on the BiPAP, did not require intubation. 05/14: Still on high flow oxygen, 10 L, respiratory rate 20/min. Continue BiPAP during naps and at night and as needed for respiratory fatigue. Patient is being managed on scheduled bronchodilator, IV Solu-Medrol, Mucinex, incentive spirometry and Pep. Atypical chest pain described as pulmonary related, 2 serial troponins are negative. ACS ruled out. Respiratory panel negative. 2. Acute on chronic HFpEF with moderate pulmonary hypertension, mild valvular heart disease ? Mild vascular congestion on chest imaging and +1-2 lower extremity pitting edema on exam noted. BNP 2554, though notably BNP was 2566 on 05/07. However, patient was on Lasix 60 mg twice daily without much improvement. IV Lasix 40 mgtwice daily for now, monitor daily BMP and urine output. Continue home dapagliflozin. Recent echo 02/19/2025 Interpretation Summary Borderline LV systolic function. Estimated LVEF 45-50%. Moderate global right ventricular systolic dysfunction. There is mild biatrial dilatation. Moderate (2+) eccentric mitral valve insufficiency. Mild tricuspid valve insufficiency. Right ventricular systolic pressure estimated to be 53 mmHg. The study was technically difficult. 3. Class III obesity with ROXY not on home PAP therapy ? BMI 45 on admit. Complicates hospital course and care. Patient reports having sleep study done in the past but did not think she could tolerate PAP therapy and has never had a PAP machine at home. Continue PAP therapy at night and with naps while inpatient as noted above. digital project manager to help, set up sleep study shortly after discharge. 4. Paroxysmal A-fib/flutter on Eliquis, hypertension, hyperlipidemia, history of VTE ? Follows with outpatient cardiology. In rate controlled atrial flutter with rate in the 100s on admit. EKG showed atrial flutter with rate 106 bpm. Normotensive to hypertensive in the ED. Continue home Eliquis, amiodarone, diltiazem, Lopressor and atorvastatin. 5. Alcohol abuse ? Patient reports drinking 2 alcoholic drinks daily and on chart review, she reported 2 drinks a day during recent admission at the end of March. However, daughter noted that there are days where patient will drink 4-5 alcoholic drinks. on CIWA protocol without medications for now. Monitor. 6. History of tobacco abuse ? Encouraged continued cessation. 7. Solitary pulmonary nodules: Unchanged solid nodule in the right upper lobe measuring 1.2 x 0.4 cm, RUL measuring 3 mm. Also shows extensive centrilobular and paraseptal emphysema. Biapical scarring. Linear consolidation at posteriorlung bases, right greater than left DVT prophylaxis: Not indicated, on Eliquis 5 mg twice daily. CODE STATUS: Full code, verified Laboratory Results 05/13/25 13:40: Sodium 143, Potassium 4.7, Chloride 93 L, Carbon Dioxide 36.5 H,Anion Gap 14, BUN 25 H, Creatinine 0.58 L, Estim Creat Clear Calc 86.37, Est GFR(MDRD) Non-Af 99, BUN/Creatinine Ratio 43.3 H, Glucose 97, Calcium 8.8, Total Bilirubin 0.51, AST 27, ALT 18, Alkaline Phosphatase 121 H, NT pro BNP II 2554 H, Total Protein 7.0, Albumin 3.1 L, Globulin 3.9, Albumin/Globulin Ratio 0.8 L 05/13/25 16:05: Troponin T Hi Sens 2 Hr < 6 05/14/25 05:35: WBC 8.5, RBC 3.27 L, Hgb 9.9 L, Hct 33.6 L, MCV 102.8 H, MCH 30.3, MCHC 29.5 L, RDW Std Deviation 57.1 H, RDW Coeff of Karly 15.3 H, Plt Count 269, MPV 10.7, Sodium 147 H, Potassium 3.8, Chloride 92 L, Carbon Dioxide 47.9 H*, Anion Gap 7, BUN 21 H, Creatinine 0.68 L, Estim Creat Clear Calc 86.60, Est GFR (MDRD) Non-Af 95, BUN/Creatinine Ratio 30.8 H, Glucose 145 H, Calcium 9.2 Clinical Impression(s) from Imaging Studies Chest CTA 05/13/25 13:49 IMPRESSION: 1. Markedly limited exam, without evidence [...] of malignancy or associated symptoms. Reading Location: [id number] Charges/Coding Addendum Addendum: Total time of the visit including total time spent in counseling or coordinationof care, (more than 50% of the total time, spent in obtaining medical information from nurses and other ancillary care providers ,explaining to the patient about labs, imaging, diagnosis and management of active complex medical conditions), review of cardiac tests, review of labs and imaging is 35 minutes. Visit Charges Inpatient E&M: 21560 Subs Hosp L3 05/14/25 1450 <Electronically signed by George Polanco MD> Cosigner Signature (if applicable): CC: ~ Signed [facility] Work Phone: [phone] 785-434907-18-2025 Progress note [facility] Medical Records Department [address] [place] [address] Progress Note - Hospitalist 05/14/25817 MR#: [id number] Acct: [id number] Name: RAJENDRA LUCERO Rep #:[id number] : 1955 69 From: George Willis PCP: Dr. Phuc Martines, DO Status:AD M IN [id number] Reason for Visit Chief Complaint: Worsening shortness of breath and leg swelling Objective Data Objective Data Vital Signs: Vital Signs Temp Pulse Resp BP Pulse Ox O2 Del Method O2 Flow Rate 97.4 F L 91 19 H 109/57 L 94 High Flow 10 05/14/25 05:20 05/14/25 07:34 05/14/25 07:34 05/14/25 05:20 05/14/25 07:33 05/14/25 07:33 05/14/25 07:33 FiO2 50 05/14/25 03:30 Oxygen Flow Rate (L/min) 10 Oxygen Delivery Method High Flow Weight: 262 lb 3 oz Body Mass Index (BMI) 45.0 Intake & Output: Intake and Output for Last 24 Hours 05/12/25 05/13/25 05/14/25 23:59 23:59 23:59 Intake Total 500 / 500 Output Total 1250 / 1250 Balance -750 / -750 Lab / Micro Data 05/14/25 05:35 05/14/25 05:35 Labs: Laboratory Results - last 24 hr 05/13/25 13:40: WBC 10.1, RBC 3.37 L, Hgb 10.1 L, Hct 34.1 L, MCV 101.2 H, MCH 30.0, MCHC 29.6 L, RDW Std Deviation 56.6 H, RDW Coeff of Karly 15.3 H, Plt Count 115 L, MPV 11.1, Immature Gran % (Auto) 0.700, Neut % (Auto) 85.1 H, Lymph % (Auto) 6.1 L, [place] % (Auto) 7.4, Eos % (Auto) 0.1, Baso % (Auto) 0.6, Absolute Neuts (auto) 8.6 H, Absolute Lymphs (auto) 0.61 L, Nucleated RBC % 0, Sodium 143, Potassium 4.7, Chloride 93 L, Carbon Dioxide 36.5 H, Anion Gap 14, BUN 25 H, Creatinine 0.58 L, Estim Creat Clear Calc 86.37, Est GFR (MDRD) Non-Af 99, BUN/Creatinine Ratio 43.3 H, Glucose 97, Calcium 8.8, Total Bilirubin 0.51, AST 27, ALT 18, Alkaline Phosphatase 121 H, Troponin T High Sens < 6, NT pro BNP II 2554 H, Total Protein 7.0, Albumin 3.1 L, Globulin 3.9, Albumin/Globulin Ratio 0.8 L 05/13/25 16:05: Troponin T Hi Sens 2 Hr < 6 05/14/25 05:35: WBC 8.5, RBC 3.27 L, Hgb 9.9 L, Hct 33.6 L, MCV 102.8 H, MCH 30.3, MCHC 29.5 L, RDWStd Deviation 57.1 H, RDW Coeff of Karly 15.3 H, Plt Count 269, MPV 10.7, Sodium 147 H, Potassium 3.8, Chloride 92 L, Carbon Dioxide 47.9 H*, Anion Gap 7, BUN 21 H, Creatinine 0.68 L, Estim Creat ClearCalc 86.60, Est GFR (MDRD) Non-Af 95, BUN/Creatinine Ratio 30.8 H, Glucose 145 H, Calcium 9.2 ABG Data ABG results: ABG 05/13/25 13:33 Specimen Type ART Sample Site R Radial pH 7.36 Bicarbonate Actual 52.6 H Total CO2 > 50 Base Excess 27 H O2 Saturation 95 O2 % 15.0 ABG pCO2 92.9 H* ABG pO2 85 [place] Test Positive O2 Delivery Device Cannula Vent Mode Not entered Crit Call To/Read Back Yes Blood Gas Notified Whom trang Blood Gas Notified Time 13:37:54 Radiography Diagnostic Testing: Radiology Impression Chest CTA 05/13/25 13:49 IMPRESSION: 1. Markedly limited exam, without evidence of central pulmonary embolism. Consider repeating this exam if there is persistent concern for a more distal embolism. 2. Similar appearance of the lungs compared to CT on 02/20/2025, to include solid pulmonary nodulesmeasuring up to 1.2 cm in size. Recommend repeat CT in 6-12 months, and Pulmonology referral if not already performed. 3. Multiple hypodense lesions in the spleen measuring up to 2.[address] abdomenand pelvis for further evaluation, particularly if the patient has a history of malignancy or associated symptoms. Reading Location: [id number] Physical Exam Narrative Seen and examined. Patient admitted with extreme shortness of breath and felt mild sharp chest pain/stabbing in sensation. Chest pain was more left-sided, couple times lastedfor short time about 2 to 3 minutes. She haschronic cough with mild increase in severity. No fever. No dysuria. Did not move bowels for couple days. Physical exam General: Alert, Oriented x3, Cooperative HEENT: Atraumatic, PERRLA, EOMI, Normocephalic. Oral: No Gingival or Mucosal Lesions/ Ulcerations Neck: Supple, No JVD, Negative Carotid Bruits Chest wall/Lungs: Air entry severely diminished. Mild expiratory rhonchi. Cardiovascular: Regular rate and rhythm, Normal S1,S2, No M/G/R Abdomen: Bowel Sounds Present, Soft, Non Tender, Non-Distended : No dysuria. No renal angle tenderness. No suprapubic tenderness. Extremities: Bilateral 2+ pitting edema, Capillary Refill Less than 3 Seconds Skin: No rashes, No breakdown Musculoskeletal: No Tenderness to Palpation of Joints or Extremities Neurological: Cranial nerves II-XII grossly intact, DTR 2+/4. No acute focal neurological deficit. Psych/Mental Status: Flat affect. Assessment & Plan Assessment/Plan (1) Acute and chronic respiratory failure with hypercapnia: (2) Acute on chronic heart failure with preserved ejection fraction (HFpEF): PLAN: Plan Patient is a 69-year-old female who presented to [facility] ED on 05/13/2025 with worsening shortness of breath and lower extremity swelling. 1. Acute on chronic hypercapnic respiratory failure most likely due to COPD andheart failure exacerbation ? Admit under inpatient status to PCU. Suspect multifactorial due to acute on chronic HFpEF and untreated ROXY as below. ABG on admit with pH 7.36 but pCO2 92. Patient on 3.5 L at rest and 6 L on exertion at baseline. CTA chest showedno PE and no pleural effusions with mild vascular congestion, severe centrilobular emphysematous changes. Patient improved on the BiPAP, did not require intubation. 05/14: Still on high flow oxygen, 10 L, respiratory rate 20/min. Continue BiPAP during naps and at night and as needed for respiratory fatigue. Patient is being managed on scheduled bronchodilator, IV Solu-Medrol, Mucinex, incentive spirometryand Pep. Atypical chest pain described as pulmonary related, 2 serial troponins are negative. ACS ruled out. Respiratory panel negative. 2. Acute on chronic HFpEF with moderate pulmonary hypertension, mild valvular heart disease ? Mild vascular congestion on chest imaging and +1-2 lower extremity pitting edema on exam noted. BNP 2554, though notably BNP was 2566 on 05/07. However, patient was on Lasix 60 mg twice daily without much improvement. IV Lasix 40 mgtwice daily for now, monitor daily BMP and urine output. Continue home dapagliflozin. Recent echo 02/19/2025 Interpretation Summary Borderline LV systolic function. Estimated LVEF 45-50%. Moderate global right ventricular systolic dysfunction. There is mild biatrial dilatation. Moderate (2+) eccentric mitral valve insufficiency. Mild tricuspid valve insufficiency. Right ventricular systolic pressure estimated to be 53 mmHg. The study was technically difficult. 3. Class III obesity with ROXY not on home PAP therapy ? BMI 45 on admit. Complicates hospital course and care. Patient reports having sleep study done inthe past but did not think she could tolerate PAP therapy and has never had a PAP machine at home. Continue PAP therapy at night and with naps while inpatient as noted above. digital project manager to help, set up sleep study shortly after discharge. 4. Paroxysmal A-fib/flutter on Eliquis, hypertension, hyperlipidemia, history of VTE ? Follows with outpatient cardiology. In rate controlled atrial flutter with rate in the 100s on admit. EKG showed atrial flutter with rate 106 bpm. Normotensive to hypertensive in the ED. Continue home Eliquis, amiodarone, diltiazem, Lopressor and atorvastatin. 5. Alcohol abuse ? Patient reports drinking 2 alcoholic drinks daily and on chart review, she reported 2 drinks a day during recent admission at the end of March. However, daughter noted that there are days where patient will drink 4-5 alcoholic drinks. on CIWA protocol without medications for now. Monitor. 6. History of tobacco abuse ? Encouraged continued cessation. 7. Solitary pulmonary nodules: Unchanged solid nodule in the right upper lobe measuring 1.2 x 0.4 cm, RUL measuring 3 mm. Also shows extensive centrilobular and paraseptal emphysema. Biapical scarring. Linear consolidation at posteriorlung bases, right greater than left DVT prophylaxis: Not indicated, on Eliquis 5 mg twice daily. CODE STATUS: Full code, verified Laboratory Results 05/13/25 13:40: Sodium 143, Potassium 4.7, Chloride 93 L, Carbon Dioxide 36.5 H,Anion Gap 14, BUN 25 H, Creatinine 0.58 L, Estim Creat Clear Calc 86.37, Est GFR(MDRD) Non-Af 99, BUN/Creatinine Ratio 43.3 H, Glucose 97, Calcium 8.8, Total Bilirubin 0.51, AST 27, ALT 18, Alkaline Phosphatase 121 H, NT pro BNP II 2554 H, Total Protein 7.0, Albumin 3.1 L, Globulin 3.9, Albumin/Globulin Ratio 0.8 L 05/13/25 16:05: Troponin T Hi Sens 2 Hr < 6 05/14/25 05:35: WBC 8.5, RBC 3.27 L, Hgb 9.9 L, Hct 33.6 L, MCV 102.8 H, MCH 30.3, MCHC 29.5 L, RDWStd Deviation 57.1 H, RDW Coeff of Karly 15.3 H, Plt Count 269, MPV 10.7, Sodium 147 H, Potassium 3.8, Chloride 92 L, Carbon Dioxide 47.9 H*, Anion Gap 7, BUN 21 H, Creatinine 0.68 L, Estim Creat ClearCalc 86.60, Est GFR (MDRD) Non-Af 95, BUN/Creatinine Ratio 30.8 H, Glucose 145 H, Calcium 9.2 Clinical Impression(s) from Imaging Studies Chest CTA 05/13/25 13:49 IMPRESSION: 1. Markedly limited exam, without evidence of central pulmonary embolism. Consider repeating this exam if there is persistent concern for a more distal embolism. 2. Similar appearance of the lungs compared to CT on 02/20/2025, to include solid pulmonary nodulesmeasuring up to 1.2 cm in size. Recommend repeat CT in 6-12 months, and Pulmonology referral if not already performed. 3. Multiple hypodense lesions in the spleen measuring up to 2.[address] abdomenand pelvis for further evaluation, particularly if the patient has a history of malignancy or associated symptoms. Reading Location: [id number] Charges/Coding Addendum Addendum: Total time of the visit including total time spent in counseling or coordinationof care, (more than50% of the total time, spent in obtaining medical information from nurses and other ancillary care providers ,explaining to the patient about labs, imaging, diagnosis and management of active complexmedical conditions), review of cardiac tests, review of labs and imaging is 35 minutes. Visit Charges Inpatient E&M: 97441 Subs Hosp 05/14/25 6763 Cosigner Signature (if applicable): CC: ~ Signed [facility]07-17-2025 History and physical note Author Nicko Vallejo [facility] Note Date/Time May 13, 2025 8:40 pm [facility] Medical Records Department [address] [place] [address] H&P Exam - Hospitalist 05/13/25 1816 MR#: [id number] Acct: [id number] Name: RAJENDRA LUCERO Bora Rep #:[id number] : 1955 69 From: Nicko glover DO PCP: Dr. Phuc Martines, DO Status:AD M IN Location: [facility] [id number]- 1 HPI - General General Date of Admission: 05/13/25 Date of Service: 05/13/25 Chief Complaint: Worsening shortness of breath and leg swelling HPI Narrative RAJENDRA LUCERO, is a 69 F who presented to [facility] ED on 05/13/2025 with worsening shortness of breath and leg swelling. Medical history is significant for COPD with chronic respiratory failure on 3.5 L at rest and 6 L on exertion, ROXY not on PAP therapy, HFpEF, A-fib/flutter on Eliquis, hypertension, hyperlipidemia and alcohol use. She was recently hospitalized here from 04/23-04/27 for atrial flutter with RVR and mild COPD exacerbation from asuspected viral infection. She saw cardiology in the office on 05/07 and was instructed to increase her home Lasix to 60 mg twice daily for 5 days and start Farxiga 10 mg daily. She did not have much improvement in urine output and continues to report worsening shortness of breath and leg swelling, so she came in today for further evaluation. In the ED she was noted to be in A-fib/flutterwith rate in the 90s to 100s, normotensive but requiring high flow nasal cannulato maintain appropriate oxygen saturations. ABG showed pH 7.36, pCO2 92, PO2 85on nasal cannula. BNP 2554, essentially stable from BNP 2566 on 05/07. Troponins negative x 2. CBC and BMP were fairly benign. CTA chest showed no PE, did show extensive centrilobular and paraseptal emphysema without pleural effusions or significant vascular congestion noted. Patient was placed on BiPAPat that time and hospitalist was contacted for admission. I saw the patient at bedside in the ED, daughter was present. Patient was alert and oriented x 3 andconversing normally while on the BiPAP. She was tolerating the BiPAP without issue. Notably she was diagnosed with ROXY in the past but she has never worn PAP therapy at night. Does note that she often feels fatigued and foggy mentally in the mornings. She does continue to report lower extremity swelling worse than her normal. Denies any chest pain or shortness of breath currently. Denies any fevers or chills. No other acute concerns currently. Will be admitted for further management. [facility] Medical History Atrial flutter with rapid ventricular response Pulmonary nodule Atrial flutter Shortness of breath ROXY (obstructive sleep apnea) Leiomyoma of uterus Internal hemorrhoids with complication Hypertension Diverticulosis of colon Chronic hypoxemic respiratory failure Alcohol abuse Former smoker On home oxygen therapy Irregular heart beat Atrial fibrillation COPD (chronic obstructive pulmonary disease) Home Medications ?Medication ?Instructions ?Recorded ?Last Taken ?Type Oxygen, Home [Home Oxygen] 2 - 4 lpm QHS sob/copd 10/2804/23/25 History albuterol sulfate 90 mcg/actuation 2 inh inhalation Q6 H PRN shortness 02/19/25 05/13/25 History breath activated powder inhaler of breath fluticasone fur. 200 mcg-umeclid 1 ea inhalation DAILY sob 02/19/25 05/12/25 History 62.5 mcg-vilant 25 mcg inhalat.powder (Trelegy Ellipta) guaifenesin 1,200 mg tablet, 1,200 mg PO BID PRN cough 02/19/25 Unknown History extended release 12 hr (Mucus Relief ER) ipratropium 0.5 mg-albuterol 3 mg 3 ml inhalation Q6H PRN shortness 02/19/25 02/19/25 History (2.5 mg base)/3 mL nebulization of breath soln multivitamin (Daily Multi-Vitamin 1 tab PO DAILY suppl ement 02/19/25 05/12/25 History tablet) sodium chloride 0.65 % nasal spray 1 spray intranasal BID PRN dry 02/19/25 Unknown History aerosol ([place] Saline) nasal passages ascorbic acid (vitamin C) 500 mg 500 mg PO DAILY PRN s upplement 03/30/25 Unknown History capsule cinnamon bark 500 mg capsule 500 mg PO QDAY supplement 03/30/25 05/12/25 History (Cinnamon) mecobalamin (vitamin B12) 1,000 1,000 mcg PO QDAY supp lement 03/30/25 05/12/25 History mcg chewable tablet nystatin 100,000 unit/gram topical 1 applic topical BI D skin rash 04/23/25 05/12/25 History cream apixaban 5 mg tablet (Eliquis) 5 mg PO BID blood thinn er #180 tabs 05/07/25 05/12/25 Rx atorvastatin 40 mg tablet 40 mg PO QHS #90 tabs 05/12/25 Rx dapagliflozin propanediol 10 mg 10 mg PO QAM #30 tabs 05/07/25 05/12/25 Rx tablet (Farxiga) diltiazem HCl 180 mg 180 mg PO Q12 #180 caps 04/2705/12/25 Rx capsule,extended release 24 hr furosemide 40 mg tablet 40 mg PO BID diuretic #180 t abs 05/07/25 05/12/25 Rx metoprolol tartrate 50 mg tablet 50 mg PO BID blood pr essure #180 05/07/25 05/12/25 Rx tabs potassium chloride 20 mEq 20 meq PO BID supplement #18 0 tabs 05/07/25 05/12/25 Rx tablet,extended release(part/cryst) (Klor-Con M) amiodarone 200 mg tablet 200 mg PO DAILY Afib 5 05/12/25 History Allergy/AdvReac Type Severity Reaction Status Date / Time ibuprofen (From Advil) Allergy Mild Hives Verified 05/13/25 13:10 nitrofurantoin (From Allergy Rash Verified 05/13/25 13:10 Macrobid) Family History Father Cancer Mother COPD (chronic obstructive pulmonary disease) Alcoholism Grandmother Hypertension Thyroid disorder Surgical History History of surgery History of colonoscopy History of lumpectomy of right breast Hx of inguinal herniorrhaphy Social History household members: none Smoking Status: Former smoker how long ago did patient quit smoking: Quit 15 years prior, smoked 1 pack/day since she been 16 until she quit. alcohol intake: current alcohol intake frequency: 0-2 drinks per day Alcohol type: hard liquor details: Hard liquor mixed drinks, previously heavier, down to 2 drinks daily. substance use type: does not use caffeine: Yes ROS Constitutional Constitutional: Reports fatigue; Denies chills, fever(s) or weakness Eyes Eyes: Denies change in vision Cardiovascular Cardiovascular: Denies chest pain Respiratory/Chest Respiratory/Chest: Reports shortness of breath with exertion; Denies cough, shortness of breath at rest or wheezing Gastrointestinal Gastrointestinal: Denies abdominal pain Musculoskeletal Musculoskeletal: Denies arthralgias or myalgias Vital Signs Vital Signs Vital Signs: 05/13/25 13:10 05/13/25 13:15 05/13/25 13:30 Temperature 98.7 F Temperature Source Oral Pulse Rate 109 H 105 H 101 H Respiratory Rate 26 H 27 H 25 H Respiratory Pattern Blood Pressure 132/99 H 147/55 H Blood Pressure Mean 110 82 Pulse Ox 87 82 96 Oxygen Delivery Method Nasal Cannula Oxygen Flow Rate (L/min) 3 Fraction of Inspired Oxygen (FIO2) 05/13/25 13:45 05/13/25 13:56 05/13/25 13:56 Temperature Temperature Source Pulse Rate 98 101 H Respiratory Rate 28 H 24 H Respiratory Pattern Tachypnea Tachypnea Blood Pressure 124/65 H Blood Pressure Mean 76 Pulse Ox 93 Oxygen Delivery Method Oxygen Flow Rate (L/min) Fraction of Inspired Oxygen (FIO2) 40 05/13/25 14:00 05/13/25 14:15 05/13/25 14:30 Temperature Temperature Source Pulse Rate 98 109 H Respiratory Rate 26 H 26 H Respiratory Pattern Blood Pressure 141/62 H 139/64 H 132/49 H Blood Pressure Mean 86 87 67 Pulse Ox 85 89 Oxygen Delivery Method Oxygen Flow Rate (L/min) Fraction of Inspired Oxygen (FIO2) 05/13/25 14:45 05/13/25 15:00 05/13/25 15:15 Temperature Temperature Source Pulse Rate 98 105 H 105 H Respiratory Rate 32 H 21 H 28 H Respiratory Pattern Blood Pressure 138/54 H 152/49 H 182/83 H Blood Pressure Mean 79 74 104 Pulse Ox 94 95 96 Oxygen Delivery Method Oxygen Flow Rate (L/min) Fraction of Inspired Oxygen (FIO2) 05/13/25 15:30 05/13/25 15:45 05/13/25 16:00 Temperature Temperature Source Pulse Rate 112 H 109 H 109 H Respiratory Rate 27 H 28 H 27 H Respiratory Pattern Blood Pressure 183/81 H 159/76 H 130/62 H Blood Pressure Mean 104 100 73 Pulse Ox 95 96 90 Oxygen Delivery Method Oxygen Flow Rate (L/min) Fraction of Inspired Oxygen (FIO2) Weight Weight: 118.4 kg Body Mass Index (BMI) 44.8 Physical Exam Const alert, oriented x3 and no apparent distress Constitutional Narrative: Elderly female, class III obesity, mildly fatigued appearing, breathing comfortably on BiPAP and answering questions appropriately, sitting back comfortably in bed, in no acute distress. General Appearance: cooperative and comfortable HEENT normocephalic, head/scalp atraumatic, hearing grossly normal bilaterally, nasal mucous membranes and turbinates normal and moist oral mucous membranes HEENT Narrative: BiPAP in place. Eyes PERRL, EOMs intact bilaterally and conjunctivae normal Neck full ROM Chest inspection of chest normal Resp normal respiratory effort and no use of accessory muscles Resp Narrative: Breathing comfortably on BiPAP at rest. Diminished breath sounds noted throughout but no wheezing or crackles noted. Cardio regular rate, regular rhythm, no murmurs and peripheral pulses 2+ throughout GI normal to inspection, nondistended, normoactive bowel sounds, soft to palpation,non-tender and non-distended Back/Spine normal ROM Extremity Extremity Narrative: +1-2 lower extremity pitting edema noted. Skin no rashes or lesions noted Psych mental status grossly normal Results Lab / Micro Data 05/13/25 13:40 05/13/25 13:40 Labs: Laboratory Results - last 24 hr 05/13/25 13:40: WBC 10.1, RBC 3.37 L, Hgb 10.1 L, Hct 34.1 L, MCV 101.2 H, MCH 30.0, MCHC 29.6 L, RDW Std Deviation 56.6 H, RDW Coeff of Karly 15.3 H, Plt Count 115 L, MPV 11.1, Immature Gran % (Auto) 0.700, Neut % (Auto) 85.1 H, Lymph % (Auto) 6.1 L, [place] % (Auto) 7.4, Eos % (Auto) 0.1, Baso % (Auto) 0.6, Absolute Neuts (auto) 8.6 H, Absolute Lymphs (auto) 0.61 L, Nucleated RBC % 0, Sodium 143, Potassium 4.7, Chloride 93 L, Carbon Dioxide 36.5 H, Anion Gap 14, BUN 25 H, Creatinine 0.58 L, Estim Creat Clear Calc 86.37, Est GFR (MDRD) Non-Af 99, BUN/Creatinine Ratio 43.3 H, Glucose 97, Calcium 8.8, Total Bilirubin 0.51, AST 27, ALT 18, Alkaline Phosphatase 121 H, Troponin T High Sens < 6, NT pro BNP II 2554 H, Total Protein 7.0, Albumin 3.1 L, Globulin 3.9, Albumin/Globulin Ratio 0.8 L ABG Data ABG results: ABG 05/13/25 13:33 Specimen Type ART Sample Site R Radial pH 7.36 Bicarbonate Actual 52.6 H Total CO2 > 50 Base Excess 27 H O2 Saturation 95 O2 % 15.0 ABG pCO2 92.9 H* ABG pO2 85 [place] Test Positive O2 Delivery Device Cannula Vent Mode Not entered Crit Call To/Read Back Yes Blood Gas Notified Whom glauthia Blood Gas Notified Time 13:37:54 Imaging Radiology Impression Chest CTA 05/13/25 13:49 IMPRESSION: 1. Markedly limited exam, without evidence [...] of malignancy or associated symptoms. Reading Location: [facility] Assessment & Plan Assessment/Plan (1) Acute and chronic respiratory failure with hypercapnia: (2) Acute on chronic heart failure with preserved ejection fraction (HFpEF): PLAN: Plan Patient is a 69-year-old female who presented to [facility] ED on 05/13/2025 with worsening shortness of breath and lower extremity swelling. 1. Acute on chronic hypercapnic respiratory failure ? Admit under inpatient status to PCU. Suspect multifactorial due to acute on chronic HFpEF and untreated ROXY as below. ABG on admit with pH 7.36 but pCO2 92. Patient on 3.5 L at rest and 6 L on exertion at baseline. CTA chest showedno PE and no pleural effusions with mild vascular congestion, did note severe centrilobular emphysematous changes. Placed on BiPAP in the ED for hypercapnia with improvement in work of breathing. Will transition off BiPAP this evening but then plan to keep patient on BiPAP overnight and with naps while inpatient. Recommend discussing with case management on getting patient set up for repeat sleep study shortly after discharge. Continue home inhalers. 2. Acute on chronic HFpEF ? Mild vascular congestion on chest imaging and +1-2 lower extremity pitting edema on exam noted. BNP 2554, though notably BNP was 2566 on 05/07. However, patient was on Lasix 60 mg twice daily without much improvement. Will treat with IV Lasix 40 mg twice daily for now, monitor daily BMP and urine output. Continue home dapagliflozin. 3. Class III obesity with ROXY not on home PAP therapy ? BMI 45 on admit. Complicates hospital course and care. Patient reports having sleep study done in the past but did not think she could tolerate PAP therapy and has never had a PAP machine at home. Continue PAP therapy at night and with naps while inpatient as noted above. Will need sleep study shortly after discharge. 4. Paroxysmal A-fib/flutter on Eliquis, hypertension, hyperlipidemia, history of VTE ? Follows with outpatient cardiology. In rate controlled atrial flutter with rate in the 100s on admit. EKG showed atrial flutter with rate 106 bpm. Normotensive to hypertensive in the ED. Continue home Eliquis, amiodarone, diltiazem, Lopressor and atorvastatin. 5. Alcohol abuse ? Patient reports drinking 2 alcoholic drinks daily and on chart review, she reported 2 drinks a day during recent admission at the end of March. However, daughter noted that there are days where patient will drink 4-[address] on CIWA protocol without medications for now. Monitor. 6. History of tobacco abuse ? Encouraged continued cessation. DVT prophylaxis: Not indicated, on Eliquis CODE STATUS: Full code, verified Expected disposition: Home, 2 to 3 days Total clinical time spent by myself addressing the patient's medical issues, reviewing all the data, and collaborating with patient's care team: 75 minutes. Charges/Coding Visit Charges Inpatient E&M: 06969 Init Hosp L3 05/13/252039 <Electronically signed by Nicko Vallejo DO> Cosigner Signature (if applicable): CC: Dr. Nicko Vallejo DO; Dr. Phuc Martines DO~ Signed [facility] Work Phone: [phone] History and physical note [facility] Medical Records Department [address] [place] [address] H&P Exam - Hospitalist 05/13/25 1816 MR#: [id number] Acct: [id number] Name: RAJENDRA LUCERO Rep #:[id number] 14 : 1955 69 From: Nicko glover DO PCP: Dr. Phuc Martines DO Status:AD M IN [facility] - General General Date of Admission: 05/13/25 Date of Service: 05/13/25 Chief Complaint: Worsening shortness of breath and leg swelling HPI Jennifer LUCERO, is a 69 F who presented to [facility] ED on 05/13/2025 with worsening shortness of breath and leg swelling. Medical history is significant for COPD with chronic respiratory failure on 3.5 L at rest and 6 L on exertion, ROXY not on PAP therapy, HFpEF, A-fib/flutter onEliquis, hypertension, hyperlipidemia and alcohol use. She was recently hospitalized here from 04/23-04/27 for atrial flutter with RVR and mild COPD exacerbation from asuspected viral infection. She sawcardiology in the office on 05/07 and was instructed to increase her home Lasix to 60 mg twice dailyfor 5 days and start Farxiga 10 mg daily. She did not have much improvement in urine output and cont inues to report worsening shortness of breath and leg swelling, so she came in today for further evaluation. In the ED she was noted to be in A-fib/flutterwith rate in the 90s to 100s, normotensive but requiring high flow nasal cannulato maintain appropriate oxygen saturations. ABG showed pH 7.36, pCO2 92, PO2 85on nasal cannula. BNP 2554, essentially stable from BNP 2566 on 05/07. Troponins negative x 2. CBC and BMP were fairly benign. CTA chest showed no PE, did show extensive centrilobular and paraseptal emphysema without pleural effusions or significant vascular congestion noted. Patient was placed on BiPAPat that time and hospitalist was contacted for admission. I saw the patient at bedside in the ED, daughter was present. Patient was alert and oriented x 3 andconversing normally while on the BiPAP. She was tolerating the BiPAP without issue. Notably she was diagnosed with ROXY in the past but she has never worn PAP therapy at night. Does note that she often feels fatigued and foggy mentally in the mornings. She does continue to report lower extremity swelling worse than her normal. Denies any chest pain or shortness of breath currently. Denies any fevers or chills. No other acute concerns currently. Will be admitted for further management. [facility] Medical History Atrial flutter with rapid ventricular response Pulmonary nodule Atrial flutter Shortness of breath ROXY (obstructive sleep apnea) Leiomyoma of uterus Internal hemorrhoids with complication Hypertension Diverticulosis of colon Chronic hypoxemic respiratory failure Alcohol abuse Former smoker On home oxygen therapy Irregular heart beat Atrial fibrillation COPD (chronic obstructive pulmonary disease) Home Medications ?Medication ?Instructions ?Recorded ?Last Taken ?Type Oxygen, Home [Home Oxygen] 2 - 4 lpm QHS sob/copd 10/2804/23/25 History albuterol sulfate 90 mcg/actuation 2 inh inhalation Q6 H PRN shortness 02/19/25 05/13/25 History breath activated powder inhaler of breath fluticasone fur. 200 mcg-umeclid 1 ea inhalation DAILY sob 02/19/25 05/12/25 History 62.5 mcg-vilant 25 mcg inhalat.powder (Trelegy Ellipta) guaifenesin 1,200 mg tablet, 1,200 mg PO BID PRN cough 02/19/25 Unknown History extended release 12 hr (Mucus Relief ER) ipratropium 0.5 mg-albuterol 3 mg 3 ml inhalation Q6H PRN shortness 02/19/25 02/19/25 History (2.5 mg base)/3 mL nebulization of breath soln multivitamin (Daily Multi-Vitamin 1 tab PO DAILY suppl ement 02/19/25 05/12/25 History tablet) sodium chloride 0.65 % nasal spray 1 spray intranasal BID PRN dry 02/19/25 Unknown History aerosol ([place] Saline) nasal passages ascorbic acid (vitamin C) 500 mg 500 mg PO DAILY PRN s upplement 03/30/25 Unknown History capsule cinnamon bark 500 mg capsule 500 mg PO QDAY supplement 03/30/25 05/12/25 History (Cinnamon) mecobalamin (vitamin B12) 1,000 1,000 mcg PO QDAY supp lement 03/30/25 05/12/25 History mcg chewable tablet nystatin 100,000 unit/gram topical 1 applic topical BI D skin rash 04/23/25 05/12/25 History cream apixaban 5 mg tablet (Eliquis) 5 mg PO BID blood thinn er #180 tabs 05/07/25 05/12/25 Rx atorvastatin 40 mg tablet 40 mg PO QHS #90 tabs 05/12/25 Rx dapagliflozin propanediol 10 mg 10 mg PO QAM #30 tabs 05/07/25 05/12/25 Rx tablet (Farxiga) diltiazem HCl 180 mg 180 mg PO Q12 #180 caps 04/2705/12/25 Rx capsule,extended release 24 hr furosemide 40 mg tablet 40 mg PO BID diuretic #180 t abs 05/07/25 05/12/25 Rx metoprolol tartrate 50 mg tablet 50 mg PO BID blood pr essure #180 05/07/25 05/12/25 Rx tabs potassium chloride 20 mEq 20 meq PO BID supplement #18 0 tabs 05/07/25 05/12/25 Rx tablet,extended release(part/cryst) (Klor-Con M) amiodarone 200 mg tablet 200 mg PO DAILY Afib 5 05/12/25 History Allergy/AdvReac Type Severity Reaction Status Date / Time ibuprofen (From Advil) Allergy Mild Hives Verified 05/13/25 13:10 nitrofurantoin (From Allergy Rash Verified 05/13/25 13:10 Macrobid) Family History Father Cancer Mother COPD (chronic obstructive pulmonary disease) Alcoholism Grandmother Hypertension Thyroid disorder Surgical History History of surgery History of colonoscopy History of lumpectomy of right breast Hx of inguinal herniorrhaphy Social History household members: none Smoking Status: Former smoker how long ago did patient quit smoking: Quit 15 years prior, smoked 1 pack/day since she been 16 until she quit. alcohol intake: current alcohol intake frequency: 0-2 drinks per day Alcohol type: hard liquor details: Hard liquor mixed drinks, previously heavier, down to 2 drinks daily. substance use type: does not use caffeine: Yes ROS Constitutional Constitutional: Reports fatigue; Denies chills, fever(s) or weakness Eyes Eyes: Denies change in vision Cardiovascular Cardiovascular: Denies chest pain Respiratory/Chest Respiratory/Chest: Reports shortness of breath with exertion; Denies cough, shortness of breath at rest or wheezing Gastrointestinal Gastrointestinal: Denies abdominal pain Musculoskeletal Musculoskeletal: Denies arthralgias or myalgias Vital Signs Vital Signs Vital Signs: 05/13/25 13:10 05/13/25 13:15 05/13/25 13:30 Temperature 98.7 F Temperature Source Oral Pulse Rate 109 H 105 H 101 H Respiratory Rate 26 H 27 H 25 H Respiratory Pattern Blood Pressure 132/99 H 147/55 H Blood Pressure Mean 110 82 Pulse Ox 87 82 96 Oxygen Delivery Method Nasal Cannula Oxygen Flow Rate (L/min) 3 Fraction of Inspired Oxygen (FIO2) 05/13/25 13:45 05/13/25 13:56 05/13/25 13:56 Temperature Temperature Source Pulse Rate 98 101 H Respiratory Rate 28 H 24 H Respiratory Pattern Tachypnea Tachypnea Blood Pressure 124/65 H Blood Pressure Mean 76 Pulse Ox 93 Oxygen Delivery Method Oxygen Flow Rate (L/min) Fraction of Inspired Oxygen (FIO2) 40 05/13/25 14:00 05/13/25 14:15 05/13/25 14:30 Temperature Temperature Source Pulse Rate 98 109 H Respiratory Rate 26 H 26 H Respiratory Pattern Blood Pressure 141/62 H 139/64 H 132/49 H Blood Pressure Mean 86 87 67 Pulse Ox 85 89 Oxygen Delivery Method Oxygen Flow Rate (L/min) Fraction of Inspired Oxygen (FIO2) 05/13/25 14:45 05/13/25 15:00 05/13/25 15:15 Temperature Temperature Source Pulse Rate 98 105 H 105 H Respiratory Rate 32 H 21 H 28 H Respiratory Pattern Blood Pressure 138/54 H 152/49 H 182/83 H Blood Pressure Mean 79 74 104 Pulse Ox 94 95 96 Oxygen Delivery Method Oxygen Flow Rate (L/min) Fraction of Inspired Oxygen (FIO2) 05/13/25 15:30 05/13/25 15:45 05/13/25 16:00 Temperature Temperature Source Pulse Rate 112 H 109 H 109 H Respiratory Rate 27 H 28 H 27 H Respiratory Pattern Blood Pressure 183/81 H 159/76 H 130/62 H Blood Pressure Mean 104 100 73 Pulse Ox 95 96 90 Oxygen Delivery Method Oxygen Flow Rate (L/min) Fraction of Inspired Oxygen (FIO2) Weight Weight: 118.4 kg Body Mass Index (BMI) 44.8 Physical Exam Const alert, oriented x3 and no apparent distress Constitutional Narrative: Elderly female, class III obesity, mildly fatigued appearing, breathing comfortably on BiPAP and answering questions appropriately, sitting back comfortably in bed, in no acute distress. General Appearance: cooperative and comfortable HEENT normocephalic, head/scalp atraumatic, hearing grossly normal bilaterally, nasal mucous membranes and turbinates normal and moist oral mucous membranes HEENT Narrative: BiPAP in place. Eyes PERRL, EOMs intact bilaterally and conjunctivae normal Neck full ROM Chest inspection of chest normal Resp normal respiratory effort and no use of accessory muscles Resp Narrative: Breathing comfortably on BiPAP at rest. Diminished breath sounds noted throughout but no wheezing or crackles noted. Cardio regular rate, regular rhythm, no murmurs and peripheral pulses 2+ throughout GI normal to inspection, nondistended, normoactive bowel sounds, soft to palpation,non-tender and non-distended Back/Spine normal ROM Extremity Extremity Narrative: +1-2 lower extremity pitting edema noted. Skin no rashes or lesions noted Psych mental status grossly normal Results Lab / Micro Data 05/13/25 13:40 05/13/25 13:40 Labs: Laboratory Results - last 24 hr 05/13/25 13:40: WBC 10.1, RBC 3.37 L, Hgb 10.1 L, Hct 34.1 L, MCV 101.2 H, MCH 30.0, MCHC 29.6 L, RDW Std Deviation 56.6 H, RDW Coeff of Karly 15.3 H, Plt Count 115 L, MPV 11.1, Immature Gran % (Auto) 0.700, Neut % (Auto) 85.1 H, Lymph % (Auto) 6.1 L, [place] % (Auto) 7.4, Eos % (Auto) 0.1, Baso % (Auto) 0.6, Absolute Neuts (auto) 8.6 H, Absolute Lymphs (auto) 0.61 L, Nucleated RBC % 0, Sodium 143, Potassium 4.7, Chloride 93 L, Carbon Dioxide 36.5 H, Anion Gap 14, BUN 25 H, Creatinine 0.58 L, Estim Creat Clear Calc 86.37, Est GFR (MDRD) Non-Af 99, BUN/Creatinine Ratio 43.3 H, Glucose 97, Calcium 8.8, Total Bilirubin 0.51, AST 27, ALT 18, Alkaline Phosphatase 121 H, Troponin T High Sens < 6, NT pro BNP II 2554 H, Total Protein 7.0, Albumin 3.1 L, Globulin 3.9, Albumin/Globulin Ratio 0.8 L ABG Data ABG results: ABG 05/13/25 13:33 Specimen Type ART Sample Site R Radial pH 7.36 Bicarbonate Actual 52.6 H Total CO2 > 50 Base Excess 27 H O2 Saturation 95 O2 % 15.0 ABG pCO2 92.9 H* ABG pO2 85 [place] Test Positive O2 Delivery Device Cannula Vent Mode Not entered Crit Call To/Read Back Yes Blood Gas Notified Whom trang Blood Gas Notified Time 13:37:54 Imaging Radiology Impression Chest CTA 05/13/25 13:49 IMPRESSION: 1. Markedly limited exam, without evidence of central pulmonary embolism. Consider repeating this exam if there is persistent concern for a more distal embolism. 2. Similar appearance of the lungs compared to CT on 02/20/2025, to include solid pulmonary nodulesmeasuring up to 1.2 cm in size. Recommend repeat CT in 6-12 months, and Pulmonology referral if not already performed. 3. Multiple hypodense lesions in the spleen measuring up to 2.9 cm. Consider nonemergent CT abdomenand pelvis for further evaluation, particularly if the patient has a history of malignancy or associated symptoms. Reading Location: [id number] Assessment & Plan Assessment/Plan (1) Acute and chronic respiratory failure with hypercapnia: (2) Acute on chronic heart failure with preserved ejection fraction (HFpEF): PLAN: Plan Patient is a 69-year-old female who presented to [facility] ED on 05/13/2025 with worsening shortness of breath and lower extremity swelling. 1. Acute on chronic hypercapnic respiratory failure ? Admit under inpatient status to PCU. Suspect multifactorial due to acute on chronic HFpEF and untreated ROXY as below. ABG on admit with pH 7.36 but pCO2 92. Patient on 3.5 L at rest and 6 L on exertion at baseline. CTA chest showedno PE and no pleural effusions with mild vascular congestion, did note severe centrilobular emphysematous changes. Placed on BiPAP in the ED for hypercapnia with improvement in work of breathing. Will transition off BiPAP this evening but then plan to keep patient on BiPAP overnight and with naps while inpatient. Recommend discussing with case management on getting patient set up for repeat sleep study shortly after discharge. Continue home inhalers. 2. Acute on chronic HFpEF ? Mild vascular congestion on chest imaging and +1-2 lower extremity pitting edema on exam noted. BNP 2554, though notably BNP was 2566 on 05/07. However, patient was on Lasix 60 mg twice daily without much improvement. Will treat with IV Lasix 40 mg twice daily for now, monitor daily BMP and urine output. Continue home dapagliflozin. 3. Class III obesity with ROXY not on home PAP therapy ? BMI 45 on admit. Complicates hospital course and care. Patient reports having sleep study done inthe past but did not think she could tolerate PAP therapy and has never had a PAP machine at home. Continue PAP therapy at night and with naps while inpatient as noted above. Will need sleep study shortly after discharge. 4. Paroxysmal A-fib/flutter on Eliquis, hypertension, hyperlipidemia, history of VTE ? Follows with outpatient cardiology. In rate controlled atrial flutter with rate in the 100s on admit. EKG showed atrial flutter with rate 106 bpm. Normotensive to hypertensive in the ED. Continue home Eliquis, amiodarone, diltiazem, Lopressor and atorvastatin. 5. Alcohol abuse ? Patient reports drinking 2 alcoholic drinks daily and on chart review, she reported 2 drinks a day during recent admission at the end of March. However, daughter noted that there are days where patient will drink 4-[address] on CIWA protocol without medications for now. Monitor. 6. History of tobacco abuse ? Encouraged continued cessation. DVT prophylaxis: Not indicated, on Eliquis CODE STATUS: Full code, verified Expected disposition: Home, 2 to 3 days Total clinical time spent by myself addressing the patient's medical issues, reviewing all the data, and collaborating with patient's care team: 75 minutes. Charges/Coding Visit Charges Inpatient E&M: 01027 Init Hosp L3 05/13/252039 Cosigner Signature (if applicable): CC: Dr. Nicko Vallejo, ; Dr. Phuc Martines DO~ Signed [facility]07-17-2025 Radiology Diagnostic study note [facility] Imaging Services [address] [place], [place] [id number] CTA Chest W/WO Contrast MR#: [id number] Acct: [id number] Name: RAJENDRA LUCERO Rep #: [id number] 12 : 1955 F 69 From: Leonela Plunkett MD PCP: Dr. Phuc Martines, DO Status: RE G ER Study:CTA Chest W/WO Contrast Date of Exam: 05/13/25 Exam# [id number] Ordering Dr: Yonatan Ivy DO PROCEDURE: CTA [...] Linear consolidation at the posterior lung bases, cpxyq-lhyigkg-kkdk-left. Unchanged solid nodules in the right upper lobe measuring 1.2 x 0.4 cm (series 2, image 235), and in the right lower lobe measuring 3 mm (images 110 and 71). Pleura: No effusion Upper Abdomen: Hepatic steatosis. Subcentimeter hypodensity in the left hepaticlobe is too small tocharacterize. There are hypodense lesions in the spleen [...] CT on 02/20/2025, to include solid pulmonary nodulesmeasuring up to 1.2 cm in size. Recommend repeat CT in 6-12 months, and Pulmonology referral if not already performed. 3. Multiple hypodense lesions in the spleen measuring up to 2.[address] abdomenand pelvis for further evaluation, particularly if the patient has a history of malignancy or associated symptoms. Reading Location: [id number] CC: Dr. Phuc Martines, DO; Dr. Linwood Ivy, DO ~ Power Electronics Engineer: Signed [facility]07-16-2025 Telephone encounter Note* Telephone Encounter - Laine De La Rosa LPN - 05/12/2025 10:07 AM EDT Pt and pt's friend notified of results and instructions with verbalized understanding. Will repeat labs as instructed. Laine De La Rosa LPN [facility]07-16-2025 Miscellaneous Notes* Telephone Encounter - Laine De La Rosa LPN - 05/12/2025 10:07 AM EDT Pt and pt's friend notified of results and instructions with verbalized understanding. Will repeat labs as instructed. Laine De La Rosa LPN * Telephone Encounter - Sofi Garcia PA-C - 05/12/2025 8:15 AM EDT Let patient know that her albumin level [...] investigate this elevation more. [facility] History of Present illness Narrative* Jaden Newton MD - 05/12/2025 9:30 AM EDT [facility] [place] Card[facility]/Electrophysiology New Patient Clinic Note Chief Complaint: Chief Complaint Patient presents with Atrial Flutter COPD Oxygen dependent Hypertension Hyperlipidemia History of Present Illness: Rajendra Lucero is a 69 y.o. female referred here by Dr. Elena for management of her atrial tachyarrhythmias. She is a morbidly obese woman with severe, O2 dependent COPD, hypertension, and a fair amount of alcohol use (2-4 mixed drinks per day). She was in her usual state of poor health until January 2025 when she presented to the [place] ED with worsening lower extremity edema and increasing BRAGG for a few months. Her initial ECG showed new onset atrial flutter with variable conduction and a HR of ~98 bpm. An echo showed an EF of 45 to 50%, an RVSP of 53 mmHg, moderate RV systolic dysfunction and mild biatrial dilatation. In late March her PCP sent her back to the ED for confusion and a UTI. At that point she was in A-fib with a controlled VR. She presents today in a wheelchair with a friend who is an RN and is a very good historian. She reports that despite Lasix 60 mg twice daily her LE edema has not changed much. She reports chronic fatigue and BRAGG which she thinks is worse now than it was prior to being diagnosed with her atrial arrhythmias. However, she is extremely sedentary, and does not do much more than walk around the house wi th a walker she does occasionally go out to a restaurant with friends. She is recently . Shedenies chest pain, palpitation, PND, orthopnea, or syncope. Vivi reports that generally she is less functional since being diagnosed with atrial flutter/atrial fibrillation and she was prior to that An EKG today shows atrial fibrillation with a VR in the 60s. Assessment and Plan: 1. Persistent atrial tachyarrhythmias: She initially presented with atrial flutter degenerated since then into atrial fibrillation. In A-fib her heart rate is well-controlled on the current medications. I do believe that given her tenuous respiratory status, she misses the atrial contribution to the cardiac output and therefore is more dyspneic with more lower extremity edema. Today we spoke about the fact that an ablation of atrial fibrillation/atrial flutter would be unlikely to maintain sinus rhythm for the long run. We also spoke about the fact that antiarrhythmics might be unsuccessful as well. However, given her continued symptoms and lower extremity edema, and the fact that she feelsher quality of life is impaired, I told her it might be reasonable to at least try a one-time cardioversion accompanied by the initiation of an antiarrhythmic drug. Despite her severe COPD, I think amiodarone will be the best choice in her case to try to maintain sinus rhythm. I will start her on 400 mg twice daily for 10 days and then decrease it to 200 mg daily. I will speak with Dr. Elena about setting up a cardioversion in the next 2 to 4 weeks. I explained all of this to her and her friend. They seem appreciative. 2. Lower extremity edema: Likely multifactorial due to her restrictive lung disease, morbid obesity, and probably exacerbated by atrial fibrillation and some diastolic dysfunction. I will increase her Lasix to 80 mg twice daily. 3. End-stage COPD: Oxygen dependent. Managed by her PCP 4. Morbid obesity: Her BMI is 45. She is extremely sedentary and has end-stage COPD. It would be unlikely that she is able to lose a significant amount of weight. Past Medical History: Medical History[1] Past Surgical History Surgical History[2] Family History Family History[3] Social History Social History[4] Medications: Reviewed Allergies: Reviewed Review of Systems: All other systems were reviewed and are negative other than as noted in the HPI. Physical Examination: Vitals: Blood pressure 110/70, pulse 65, height 5' 4 (1.626 m), weight 260 lb (118 kg), SpO2 (!) 78%. Constitutional: Appears well kept and looks stated age; in NAD; morbid obesity Psychiatric: A &O x3 Mood is pleasant; Affect is appropriate Musculoskeletal: Normocephalic; no joint swelling; gait not teste, currently in a wheelchair; 4/5 muscle strength bilaterally in upper and lower extremities; no clubbing or cyanosis HEENT: Pupils are equal and round; Conjunctiva are not injected; Sclera are non- icteric; Airway andNares are patent; Ears without external abnormalities. Mucosa is pink; Dentition is normal Neck: Supple; No JVD or Bruits; No thyromegaly; No lymphadenopathy Respiratory: Lungs are clear with no rales or wheezes. Respiratory effort is normal and symmetricalbilaterally; Good air movement bilaterally Heart: IRRR; Nl S1 and S2 no mcrg Abdomen: NABS soft, non-tender, non-distended; no organomegaly; no obvious masses Extremities/Skin: 2+ LE edema; Skin warm to touch and well perfused; skin discoloration is present with chronic venous insufficiency Neuro: sensation and motor function are grossly normal. Cranial Nerves are grossly intact Laboratory Tests: Reviewed from Shefali Newton MD DATE of SERVICE: 05/12/2025 [1] Past Medical History: Diagnosis Date Alcohol abuse 04/06/2025 Mixed hyperlipidemia 04/06/2025 Typical atrial flutter (HCC) 04/06/2025 [2] Past Surgical History: Procedure Laterality Date BREAST LUMPECTOMY Right LAP,INGUINAL HERNIA REPR,INITIAL (HISTORICAL) N/A [3] Family History Problem Relation Name Age of Onset COPD Mother Cancer Father [4] Social History Tobacco Use Smoking status: Former Types: Cigarettes Smokeless tobacco: Never Vaping Use Vaping status: Never Used Substance Use Topics Alcohol use: Yes Comment: 4-5 mixed drinks per day Drug use: Never documented in this [facility]07-16-2025 Telephone encounter Note* Telephone Encounter - Sofi Garcia PA-C - 05/12/2025 8:15 AM EDT Let patient know that her albumin level [...] to investigate this elevation more. [facility]07-15-2025 NoteHNO ID: [id number] Author: SOFI GARCIA PA-C Service: ? Author Type: Physician Chief Enterprise Architect Type: Progress Notes Filed: 05/11/2025 14:34 Note Text: Chief Complaint Patient presents with: Hospital F/U [facility] Rajendra Lucero is a 69 year old female who presents here today for Hospital Discharge Follow up.. Patient was admitted on 04/23/2025 Discharge of 04/27/2024 Dx: atrial flutter with RVR; COPD exacerbation CHF: - Recent hospitalization from 04/23 to 04/27. - Follow-up with cardiology last Saturday; Lasix increased to 60 mg BID for 5 days. - Scheduled to see ice scraper tomorrow. - Started on on Saturday; no [...] disease) (HCC) 02/03/2010 Coronary artery disease No UT, CHF. No heart cath. Diverticulosis of colon [...] hours as needed for wheezing/shortness of breath. bajwmvplibx-dlclshfwp-soesgszj (TRELEGY ELLIPTA) 200-62.5-25 mcg inhalation powder Inhale [...] mouth two times a day. No current facility-ad (more content not included)...[facility] 05-11-2025 History of Present illness Narrative* Sofi Garcia PA-C - 05/11/2025 11:43 AM EDT Chief Complaint Patient presents with: [facility] F/U [facility] Rajendra Lucero is a 69 year old female who presents here today for Hospital Discharge Follow up.. Patient was admitted on 04/23/2025 Discharge of 04/27/2024 Dx: atrial flutter with RVR; COPD exacerbation CHF: - Recent hospitalization from 04/23 to 04/27. - Follow-up with cardiology last Saturday; Lasix increased to 60 mg BID for 5 days. - Scheduled to see ice scraper tomorrow. - Started on on Saturday; no [...] disease) (HCC) 02/03/2010 Coronary artery disease No UT, CHF. No heart cath. Diverticulosis of colon [...] hours as needed for wheezing/shortness of breath. eyjxijjvsud-fwzsibeyo-sxoyvtrd (TRELEGY ELLIPTA) 200-62.5-25 mcg inhalation powder Inhale [...] in no acute distress, well-hydrated, well nourished. andMorbidly obese. Lungs: diminished breath sounds. Talking in [...] met for rehab post-discharge. - Follow-up with ice scraper scheduled for tomorrow. 2. Atrial flutter, unspecified type (HCC) (I48.92) - Follow-up with ice scraper scheduled for tomorrow. 3. Stage 3 severe COPD by GOLD classification ([facility]) (J44.9) - Oxygen saturation levels fluctuating, with [...] which included preparing to see the patient, apnv-ib-xinu patient care, completing clinical documentation, obtaining and/or reviewing separately obtained history, performing a medically appropriate examination, counseling and educating the pat ient/family/caregiver, ordering medications, tests, or procedures, and communicating results to thepatient/family/caregiver. Recording using [employer] software for draft documentation of the visit was discussed with the patient/authorized guest services representative; all questions welcomed and answered. Patient/authorized guest services representative agreed to proceed documented in [facility] Radiology Diagnostic study note [facility] Imaging Services [address] [place] [address] Chest PA and Lateral MR#: [id number] Acct: [id number] Name: RAJENDRA LUCERO Rep #: [id number] 11 : 1955 F 69 From: Dionte Stack MD PCP: Dr. Phuc Martines, Status: RE G CLI Study:Chest PA and Lateral Date of Exam: 05/07/25 Exam# [id number] Ordering Dr: Kim Price TELEPHONY ENGINEER TELEPHONY ENGINEER-C PROCEDURE: CHEST PA AND LATERAL 05/07/2025 [...] Findings suggestive of pulmonary scarring. Reading Location: [place] [address] CC: LISA Price; Dr. Phuc Martines, DO ~ Power Electronics Engineer: Signed [facility]07-01-2025 Consult note [facility] Medical Records Department [address] [place] [address] Counseling Note - Pharmacy 04/26/25 1022 MR#: [id number] Acct: [id number] Name: RAJENDRA LUCERO Rep #:[id number] : 1955 69 From: Milena Rodas PCP: Dr. Phuc Martines, Status:AD M IN Location: [facility] [id number] Pharmacy [facility] Counseling Pharmacy Service has performed discharge medication [...] sodium chloride 0.65 % nasal spray aerosol ([place] Saline) 1 spray intranasal BID PRN dry [...] mcg chewable tablet 1,000 mcg PO QDAY cuykimeqat79/03/25 nystatin 100,000 unit/gram topical cream 1 applic topical BID skin rash 04/23/25 atorvastatin 40 mg tablet 40 mg PO QHS 30 days #30 tabs 04/26/25 diltiazem HCl 180 mg capsule,extended release 24 hr 180 mg PO Q12 30 days #60 caps 04/26/25 04/26/25 1022 Date _ Milena Herron Signature (if applicable): Date CC: ~ Signed [facility]07-01-2025 Discharge summary Author George Polanco [facility] Note Date/Time April 27, 2025 2:04p sridevi [facility] Medical Records Department [address] [place] [address] Discharge Summary 04/27/25 1113 MR#: [id number] Acct: [id number] Name: RAJENDRA LUCERO Rep #:[id number] 18 : 1955 69 From: George Willis PCP: Dr. Phuc Martines, DO Status:AD M IN Location: [place] [address] Providers Date of Admission: 04/23/25 Date of [...] it. She was also told by her conversion worker Dr. Reza Elena to be cautious will maintain on [...] uses supplemental oxygen, no PAP therapy. Follows museum registrar Dr. Diana gonzalez #11. DVT prophylaxis: Will [...] 87.0 H, Lymph % (Auto) 5.2 L, [place] % (Auto) 5.9, Eos % (Auto) 0.9, [...] sodium chloride 0.65 % nasal spray aerosol ([place] Saline) 1 spray intranasal BID PRN dry [...] mcg chewable tablet 1,000 mcg PO QDAY jaejjgeetf54/03/25 nystatin 100,000 unit/gram topical cream 1 applic [...] baseline and chronic alcohol use. Scheduled with conversion worker for possible ablation. Patient was also having [...] [Daily Multi-Vitamin] Tablet 1 tab PO DAILY [place] Saline 0.65 % aerosol,spray 1 spray intranasal [...] Health Service Charges/Coding Visit Charges Inpatient E&M: 49681 Disch Hosp >30min 04/27/25 1404 <Electronically signed by George Polanco MD> Cosigner Signature (if applicable): CC: Dr. Phuc Martines DO; Dr. George Polanco MD~ Signed [facility] Work Phone: 1(507) 120-555707-01-2025 Discharge summary [facility] Medical Records Department [address] [place] [address] Discharge Summary 04/27/25 1113 MR#: [id number] Acct: [id number] Name: RAJENDRA LUCERO Rep #:[id number] 18 : 1955 69 From: George Willis PCP: Dr. Phuc Martines DO Status:AD M IN Location: [place] [id number] Providers Date of Admission: 04/23/25 Date [...] it. She was also told by her conversion worker Dr. Reza Elena to be cautious will maintain on [...] uses supplemental oxygen, no PAP therapy. Follows museum registrar Dr. Diana gonzalez #11. DVT prophylaxis: Will [...] 87.0 H, Lymph % (Auto) 5.2 L, [place] % (Auto) 5.9, Eos % (Auto) 0.9, [...] sodium chloride 0.65 % nasal spray aerosol ([place] Saline) 1 spray intranasal BID PRN dry [...] mcg chewable tablet 1,000 mcg PO QDAY pibohjrcsl63/03/25 nystatin 100,000 unit/gram topical cream 1 applic [...] baseline and chronic alcohol use. Scheduled with conversion worker for possible ablation. Patient was also having [...] [Daily Multi-Vitamin] Tablet 1 tab PO DAILY [place] Saline 0.65 % aerosol,spray 1 spray intranasal [...] Health Service Charges/Coding Visit Charges Inpatient E&M: 40690 Disch Hosp >30min 04/27/25 1404 Cosigner Signature (if applicable): CC: Dr. Phuc Martines DO; Dr. George Polanco MD~ Signed [facility]07-01-2025 Hospital Discharge instructionsAdditional Instructions Date of Discharge: 04/27/25[facility] Work Phone: 1(758) 553-813407-01-2025 Discharge summary Author George Polanco [facility] Note Date/Time April 27, 2025 11:13 am [facility] Medical Records Department [address] [place] [address] Instructions for Home/Discharge Instructions 04/27/25 1112 MR#: [id number] Acct: [id number] Name: RAJENDRA LUCERO Rep #:[id number] 17 : [...] [Daily Multi-Vitamin] Tablet 1 tab PO DAILY [place] Saline 0.65 % aerosol,spray 1 spray intranasal [...] MD; Dr. Phuc Martines DO ~ Signed [facility] Work Phone: 1(483) 834-243607-01-2025 Discharge summary [facility] Medical Records Department [address] [place] [address] Instructions for Home/Discharge Instructions 04/27/25 1112 MR#: [id number] Acct: [id number] Name: RAJENDRA LUCERO Rep #:[id number] 17 : [...] [Daily Multi-Vitamin] Tablet 1 tab PO DAILY [place] Saline 0.65 % aerosol,spray 1 spray intranasal [...] MD; Dr. Phuc Martines DO ~ Signed [facility]07-01-20[facility] Progress note Author [facility] Note Date/Time April 26, 2025 3:33 pm [facility] Medical Records Department [address] [facility] [place] [address] Progress Note - Hospitalist 04/26/25 1532 MR#: [id number] Acct: [id number] Name: GERAJENDRA Mata Bora Rep #:[id number] 16 : 1955 69 From: George Willis PCP: Dr. Phuc Martines DO Status:AD M IN Location: [place] [address] 1 Reason for Visit Reason for Visit: [...] 87.0 H, Lymph % (Auto) 5.2 L, [place] % (Auto) 5.9, Eos % (Auto) 0.9, [...] baseline and chronic alcohol use. Scheduled with conversion worker for possible ablation. Patient was also having [...] it. She was also told by her conversion worker Dr. Reza Elena to be cautious will maintain on [...] uses supplemental oxygen, no PAP therapy. Follows museum registrar Dr. Diana gonzalez #11. DVT prophylaxis: Will [...] 87.0 H, Lymph % (Auto) 5.2 L, [place] % (Auto) 5.9, Eos % (Auto) 0.9, [...] Calcium 9.4 Charges/Coding Visit Charges Inpatient E&M: 23518 Subs Hosp L2 04/26/25 1533 <Electronically signed by George Polanco MD> Cosigner Signature (if applicable): CC: ~ Signed [facility] Work Phone: 1(659) 495-430006-30-2025 Progress note [facility] Medical Records Department [address] [place] [address] Progress Note - Hospitalist 04/26/25 1532 MR#: [id number] Acct: [id number] Name: RAJENDRA LUCERO Rep #:[id number] 16 : 1955 69 From: George Willis PCP: Dr. Phuc Martines, DO Status:AD M IN Location: [place] [address] 1 Reason for Visit Reason for Visit: [...] 87.0 H, Lymph % (Auto) 5.2 L, [place] % (Auto) 5.9, Eos % (Auto) 0.9, [...] baseline and chronic alcohol use. Scheduled with conversion worker for possible ablation. Patient was also having [...] it. She was also told by her conversion worker Dr. Reza Elena to be cautious will maintain on [...] uses supplemental oxygen, no PAP therapy. Follows museum registrar Dr. Diana gonzalez #11. DVT prophylaxis: Will [...] 87.0 H, Lymph % (Auto) 5.2 L, [place] % (Auto) 5.9, Eos % (Auto) 0.9, [...] Calcium 9.4 Charges/Coding Visit Charges Inpatient E&M: 72819 Subs Hosp L2 04/26/25 1533 Cosigner Signature (if applicable): CC: ~ Signed [facility]06-30-2025 Consult note Author Milena Rodas [facility] Note Date/Time April 27, 2025 4:05p m [facility] Medical Records Department [address] [place] [address] Counseling Note - Pharmacy 04/26/25 1022 MR#: [id number] Acct: [id number] Name: RAJENDRA LUCERO Rep #:[id number] 41 : 1955 69 From: Milena Rodas PCP: Dr. Phuc Martines, DO Status:AD M IN Y Location: [place] [address] Pharmacy [facility] Counseling Pharmacy Service has performed discharge medication [...] sodium chloride 0.65 % nasal spray aerosol ([place] Saline) 1 spray intranasal BID PRN dry [...] mcg chewable tablet 1,000 mcg PO QDAY uzuzqgsbfi44/03/25 nystatin 100,000 unit/gram topical cream 1 applic topical BID skin rash 04/23/25 atorvastatin 40 mg tablet 40 mg PO QHS 30 days #30 tabs 04/26/25 diltiazem HCl 180 mg capsule,extended release 24 hr 180 mg PO Q12 30 days #60 caps 04/26/25 04/26/25 1022 <Electronically signed by Milena Rodas> Date _ Milena Rodas Cosigner Signature (if applicable): Date CC: ~ Signed [facility] Work Phone: 1(309) 303-175206-30-2025 Discharge summary Author George Polanco [facility] Note Date/Time April 26, 2025 9:38 am [facility] Medical Records Department [address] [place] [address] Discharge Summary 04/26/25 0932 MR#: [id number] Acct: [id number] Name: RAJENDRA LUCERO Rep #:[id number] : 1955 69 From: George Willis PCP: Dr. Phuc Martines, DO Status:AD M IN Location: [place] [id number]- [id number] Providers Date of Admission: 04/23/25 Date [...] it. She was also told by her conversion worker Dr. Reza Elena to be cautious will maintain on [...] uses supplemental oxygen, no PAP therapy. Follows museum registrar Dr. Diana gonzalez #11. DVT prophylaxis: Will [...] 85.7 H, Lymph % (Auto) 6.3 L, [place] % (Auto) 6.2, Eos % (Auto) 1.0, [...] sodium chloride 0.65 % nasal spray aerosol ([place] Saline) 1 spray intranasal BID PRN dry [...] mcg chewable tablet 1,000 mcg PO QDAY cwvxjevrzc35/03/25 nystatin 100,000 unit/gram topical cream 1 applic [...] 87.0 H, Lymph % (Auto) 5.2 L, [place] % (Auto) 5.9, Eos % (Auto) 0.9, [...] baseline and chronic alcohol use. Scheduled with conversion worker for possible ablation. Patient was also having [...] 87.0 H, Lymph % (Auto) 5.2 L, [place] % (Auto) 5.9, Eos % (Auto) 0.9, [...] [Daily Multi-Vitamin] Tablet 1 tab PO DAILY [place] Saline 0.65 % aerosol,spray 1 spray intranasal [...] Self Care Charges/Coding Visit Charges Inpatient E&M: 41584 Disch Hosp >30min 04/26/25 0938 <Electronically signed by George Polanco MD> Cosigner Signature (if applicable): CC: Dr. Phuc Martines DO; Dr. George Polanco MD~ Signed [facility] Work Phone: 1(330) 141-545906-30-2025 Discharge summary Author George Polanco [facility] Note Date/Time April 26, 2025 9:32 am [facility] Medical Records Department [address] [place] [address] Instructions for Home/Discharge Instructions 04/26/25918 MR#: [id number] Acct: [id number] Name: RAJENDRA LUCERO Rep #:[id number] 31 : [...] [Daily Multi-Vitamin] Tablet 1 tab PO DAILY [place] Saline 0.65 % aerosol,spray 1 spray intranasal [...] can be placed): Home, Self Care 04/26/25 09<Electronically signed by George Polanco MD>George Polanco MD CC: Dr. Virginia Henriquez MD; Dr. Puhc Martines DO ~ Signed [facility] Work Phone: 1(225) 373-782006-30-2025 Discharge summary [facility] Medical Records Department [address] [place] [address] Discharge Summary 04/26/25931 MR#: [id number] Acct: [id number] Name: RAJENDRA LUCERO Rep #:[id number] 55 : 1955 69 From: George Willis PCP: Dr. Phuc Martines DO Status:AD M [facility] Prov[facility] Date of Admission: 04/23/25 Date [...] it. She was also told by her conversion worker Dr. Reza Elena to be cautious will maintain on [...] uses supplemental oxygen, no PAP therapy. Follows museum registrar Dr. Diana gonzalez #11. DVT prophylaxis: Will [...] 85.7 H, Lymph % (Auto) 6.3 L, [place] % (Auto) 6.2, Eos % (Auto) 1.0, [...] sodium chloride 0.65 % nasal spray aerosol ([place] Saline) 1 spray intranasal BID PRN dry [...] mcg chewable tablet 1,000 mcg PO QDAY gylosyrplt38/03/25 nystatin 100,000 unit/gram topical cream 1 applic [...] 87.0 H, Lymph % (Auto) 5.2 L, [place] % (Auto) 5.9, Eos % (Auto) 0.9, [...] baseline and chronic alcohol use. Scheduled with conversion worker for possible ablation. Patient was also having [...] 87.0 H, Lymph % (Auto) 5.2 L, [place] % (Auto) 5.9, Eos % (Auto) 0.9, [...] [Daily Multi-Vitamin] Tablet 1 tab PO DAILY [place] Saline 0.65 % aerosol,spray 1 spray intranasal [...] Self Care Charges/Coding Visit Charges Inpatient E&M: 32775 Disch Hosp >30min 04/26/25 0938 Cosigner Signature (if applicable): CC: Dr. Phuc Martines DO; Dr. George Polanco MD~ Signed [facility]06-30-2025 Discharge summary [facility] Medical Records Department [address] [place] [address] Instructions for Home/Discharge Instructions 04/26/2519 MR#: [id number] Acct: [id number] Name: RAJENDRA LUCERO Rep #:[id number] 31 : [...] inhalation Q6H PRN (Reason: shortness of breath) Brannon Ellipta 200-62.5-25 mcg blister with device 1 ea inhalation DAILY ipratropium-albuterol 0.5 mg-3 mg(2.5 mg base)/3 mL solution for nebulization 3 ml inhalation Q6H PRN (Reason: shortness of breath) multivitamin [Daily Multi-Vitamin] Tablet 1 tab PO DAILY [place] Saline 0.65 % aerosol,spray 1 spray intranasal [...] cap PO BID Referrals / Follow Up: Mecry Purvis MD [Med Staff - Active Staff] [...] MD; Dr. Phuc Martines DO ~ Signed [facility]06-30-2025 [facility]06-29-2025 Progress note Author George Polanco [facility] Note Date/Time April 25, 2025 12:0 3pm [facility] Medical Records Department [address] [place] [address] Progress Note - Hospitalist 04/25/25 0903 MR#: [id number] Acct: [id number] Name: RAJENDRA LUCEOR Rep #:[id number] : 1955 69 From: George Willis PCP: Dr. Phuc Martines, DO Status:AD M IN Location: [place] [address] Reason for Visit Reason for Visit: Diagnoses [...] Total 11.08 / 13.58 853.16 / 853.16 / Output Total 700 / 700 Balance 11.08 / -386.42 153.16 / 153.16 / Lab / Micro Data 04/25/25 06:18 04/25/25 [...] 85.7 H, Lymph % (Auto) 6.3 L, [place] % (Auto) 6.2, Eos % (Auto) 1.0, [...] baseline and chronic alcohol use. Scheduled with conversion worker for possible ablation. Patient was also having [...] it. She was also told by her conversion worker Dr. Reza Elena to be cautious will maintain on [...] uses supplemental oxygen, no PAP therapy. Follows museum registrar Dr. Diana gonzalez #11. DVT prophylaxis: Will [...] 85.7 H, Lymph % (Auto) 6.3 L, [place] % (Auto) 6.2, Eos % (Auto) 1.0, [...] TSH 1.970 Charges/Coding Visit Charges Inpatient E&M: 68581 Subs Hosp L2 04/25/25 1203 <Electronically signed by George Polanco MD> Cosigner Signature (if applicable): CC: ~ Signed [facility] Work Phone: 1(472) 822-896606-29-2025 Progress note [facility] Medical Records Department [address] [place] [address] Progress Note - Hospitalist 04/25/25 0903 MR#: [id number] Acct: [id number] Name: RAJENDRA LUCERO Rep #:[id number] 51 : 1955 69 From: George Willis PCP: Dr. Phuc Martines, DO Status:AD M IN Location: [address] 1 Reason for Visit Reason for [...] Total 11.08 / 13.58 853.16 / 853.16 / Output Total 700 / 700 Balance 11.08 / -386.42 153.16 / 153.16 / 75 Lab / Micro Data 04/25/25 [...] 85.7 H, Lymph % (Auto) 6.3 L, [place] % (Auto) 6.2, Eos % (Auto) 1.0, [...] baseline and chronic alcohol use. Scheduled with conversion worker for possible ablation. Patient was also having [...] it. She was also told by her conversion worker Dr. Reza Elena to be cautious will maintain on [...] uses supplemental oxygen, no PAP therapy. Follows museum registrar Dr. Diana gonzalez #11. DVT prophylaxis: Will [...] 85.7 H, Lymph % (Auto) 6.3 L, [place] % (Auto) 6.2, Eos % (Auto) 1.0, [...] TSH 1.970 Charges/Coding Visit Charges Inpatient E&M: 49251 Subs Hosp L2 04/25/25 1203 Cosigner Signature (if applicable): CC: ~ Signed [facility]06-28-2025 Progress note Author George Polanco [facility] Note Date/Time April 24, 2025 1:22 pm [facility] Medical Records Department [address] [facility] [place] [address] Progress Note - Hospitalist 04/24/25809 MR#: [id number] Acct: [id number] Name: RAJENDRA LUCERO Rep #:[id number] 60 : 1955 69 From: George Willis PCP: Dr. Phuc Martines, DO Status:AD M IN Location: [place] [address] Reason for Visit Reason for Visit: Diagnoses [...] 83.8 H, Lymph % (Auto) 7.9 L, [place] % (Auto) 6.6, Eos % (Auto) 0.8, [...] Clarity Clear, Urine pH 6.0, Ur Specific [place] 1.015, Urine Protein 30 H, Urine Glucose [...] 83.2 H, Lymph % (Auto) 6.8 L, [place] % (Auto) 8.0, Eos % (Auto) 1.3, [...] IMPRESSION: Cardiomegaly with mild congestion. Reading Location: [facility] Brain CT 04/23/25 18:04 IMPRESSION: 1. No acute intracranial hemorrhage, midline shift or mass effect. If symptoms persist, further evaluation with MRI is recommended. 2. Mild small vessel ischemic/degenerative changes. Reading Location: [facility] Physical Exam Narrative Seen and examined. Patient admitted for SOB and, rapid heart rate, new onset atrial flutter, COPD on 3 to 6 L of oxygen at baseline and chronic alcohol use. Scheduled with conversion worker for possible ablation. Patient was also having [...] it. She was also told by her conversion worker Dr. Reza Elena to be cautious will maintain on [...] uses supplemental oxygen, no PAP therapy. Follows museum registrar Dr. Diana gonzalez #11. DVT prophylaxis: Will [...] 83.8 H, Lymph % (Auto) 7.9 L, [place] % (Auto) 6.6, Eos % (Auto) 0.8, [...] Clarity Clear, Urine pH 6.0, Ur Specific [place] 1.015, Urine Protein 30 H, Urine Glucose [...] 83.2 H, Lymph % (Auto) 6.8 L, [place] % (Auto) 8.0, Eos % (Auto) 1.3, [...] TSH 1.970 Charges/Coding Visit Charges Inpatient E&M: 56503 Subs Hosp L2 04/24/25 1321 <Electronically signed by George Polanco MD> Cosigner Signature (if applicable): CC: ~ Signed ADDENDUM by Dr. George Polanco MD on 04/24/25 at 1322 Addendum Started on atorvastatin 40 mg daily at bedtime 04/24/25 1322<Electronically signed by George Polanco MD> Cosigner Signature (if applicable): cc: ~* Signed [facility] Work Phone: 1(540) 628-141306-28-2025 Progress note [facility] Medical Records Department [address] [place] [address] Progress Note - Hospitalist 04/24/25809 MR#: [id number] Acct: [id number] Name: RAJENDRA LUCERO Rep #:[id number] : 1955 69 From: George Willis PCP: Dr. Phuc Martines, DO Status:AD M IN [facility] Reason for Visit Reason for Visit: [...] 83.8 H, Lymph % (Auto) 7.9 L, [place] % (Auto) 6.6, Eos % (Auto) 0.8, [...] Clarity Clear, Urine pH 6.0, Ur Specific [place] 1.015, Urine Protein 30 H, Urine Glucose [...] 83.2 H, Lymph % (Auto) 6.8 L, [place] % (Auto) 8.0, Eos % (Auto) 1.3, [...] IMPRESSION: Cardiomegaly with mild congestion. Reading Location: [facility] Brain CT 04/23/25 18:04 IMPRESSION: 1. No acute intracranial hemorrhage, midline shift or mass effect. If symptoms persist, further evaluation with MRI is recommended. 2. Mild small vessel ischemic/degenerative changes. Reading Location: [facility] Physical Exam Narrative Seen and examined. Patient admitted for SOB and, rapid heart rate, new onset atrial flutter, COPD on 3 to 6 L of oxygen at baseline and chronic alcohol use. Scheduled with conversion worker for possible ablation. Patient was also having [...] it. She was also told by her conversion worker Dr. Reza Elena to be cautious will maintain on [...] uses supplemental oxygen, no PAP therapy. Follows museum registrar Dr. Diana gonzalez #11. DVT prophylaxis: Will [...] 83.8 H, Lymph % (Auto) 7.9 L, [place] % (Auto) 6.6, Eos % (Auto) 0.8, [...] Clarity Clear, Urine pH 6.0, Ur Specific [place] 1.015, Urine Protein 30 H, Urine Glucose [...] 83.2 H, Lymph % (Auto) 6.8 L, [place] % (Auto) 8.0, Eos % (Auto) 1.3, [...] TSH 1.970 Charges/Coding Visit Charges Inpatient E&M: 79884 Subs Hosp L2 04/24/25 1321 Cosigner Signature (if applicable): CC: ~ Signed ADDENDUM by Dr. George Polanco MD on 04/24/25 at 1322 Addendum Started on atorvastatin 40 mg daily at bedtime 04/24/25 1322 Cosigner Signature (if applicable): cc: ~* Signed [facility]06-28-2025 Discharge summary Author Cele Morgan [facility] Note Date/Time April 24, 2025 12:0 0am [facility] Medical Records Department [address] [place] [address] Emergency Department Summary 04/23/25 MR#: [id number] Acct: [id number] Name: RAJENDRA LUCERO Rep #:[id number] 26 : 1955 69 From: Cele LYNN PCP: Dr. Phuc Martines, DO Status:AD M IN [facility] H[facility] <LEAH Cooley - Last [...] BID PRN dry 02/19/25 Unknown History aerosol ([place] Saline) nasal passages triamcinolone acetonide 0.5 % [...] <LEAH Cooley - Last Filed: 04/23/25 21:52> [facility] Narrative Medical decision making narrative: Patient presenting [...] 83.8 H Lymph % (Auto) 7.9 L [place] % (Auto) 6.6 Eos % (Auto) 0.8 [...] Clarity Clear Urine pH 6.0 Ur Specific [place] 1.015 Urine Protein 30 H Urine Glucose [...] IMPRESSION: Cardiomegaly with mild congestion. Reading Location: [facility] Brain CT 04/23/25 18:04 IMPRESSION: 1. No acute intracranial hemorrhage, midline shift or mass effect. If symptoms persist, further evaluation with MRI is recommended. 2. Mild small vessel ischemic/degenerative changes. Reading Location: [facility] EKG Initial EKG: Comments: 129 bpm, atrial flutter, no ST elevation, interpreted by attending ED physician <Dr. Clay Hager MD - Last Filed: 04/23/25 20:27> [facility] MDM Narrative Medical decision making narrative: [...] 83.8 H Lymph % (Auto) 7.9 L [place] % (Auto) 6.6 Eos % (Auto) 0.8 [...] Clarity Clear Urine pH 6.0 Ur Specific [place] 1.015 Urine Protein 30 H Urine Glucose [...] IMPRESSION: Cardiomegaly with mild congestion. Reading Location: [facility] Brain CT 04/23/25 18:04 IMPRESSION: 1. No acute intracranial hemorrhage, midline shift or mass effect. If symptoms persist, further evaluation with MRI is recommended. 2. Mild small vessel ischemic/degenerative changes. Reading Location: [facility] Discharge Plan Triage Chief Complaint: Palpitations ED [...] [Daily Multi-Vitamin] Tablet 1 tab PO DAILY [place] Saline 0.65 % aerosol,spray 1 spray intranasal [...] DO [Primary Care Provider] - Print Language: Sami Disposition Disposition: Acute Care Hospital [facility] What to do if you have Problems For any increased pain, shortness of breath, bleeding, nausea or vomiting, chestpain, or any unexpected problems, contact your Primary Care Provider. Call [facility] ([phone]) or report to the closest Emergency Room. Call 911 if necessary. 04/23/25 2152 <Electronically signed by Cele LYNN> Cosigner Signature (if applicable): 04/24/25 0000 <Electronically signed by Clay Hager MD> CC: Dr. Phuc Martines, ~ Signed [facility] Work Phone: 1(922) 967-449506-28-2025 History and physical note Author Virginia Henriquez [facility] Note Date/Time April 23, 2025 10:1 5pm [facility] Medical Records Department [address] [place] [address] H&P Exam - Hospitalist 04/23/252148 MR#: [id number] Acct: [id number] Name: RAJENDRA LUCERO Rep #:[id number] : 1955 69 From: Virginia Henriquez MD PCP: Dr. Phuc Martines, Status:AD M IN Location: [facility] ILV226- 1 HPI - General General Date of [...] abuse recently cut back [facility] with [facility] of [...] 1 and placed on a diltiazem drip. [facility] Medical History (Updated 04/23/25 @ 22:15 by [...] BID PRN dry 02/19/25 Unknown History aerosol ([place] Saline) nasal passages triamcinolone acetonide 0.5 % [...] 83.8 H, Lymph % (Auto) 7.9 L, [place] % (Auto) 6.6, Eos % (Auto) 0.8, [...] Clarity Clear, Urine pH 6.0, Ur Specific [place] 1.015, Urine Protein 30 H, Urine Glucose [...] IMPRESSION: Cardiomegaly with mild congestion. Reading Location: [facility] Brain CT 04/23/25 18:04 IMPRESSION: 1. No acute intracranial hemorrhage, midline shift or mass effect. If symptoms persist, further evaluation with MRI is recommended. 2. Mild small vessel ischemic/degenerative changes. Reading Location: 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 Elena did discuss this with her [...] Time: 16minutes. Charges/Coding Visit Charges Inpatient E&M: 19337 Init Hosp L3 Procedures Hospitalists Procedures: 94311 Advncd Care Plan 30 Min 04/23/252214 <Electronically signed by Virginia Henriquez MD> Cosigner Signature (if applicable): CC: Dr. Virginia Henriquez MD; Dr. Phuc Martines, DO~ Signed [facility] Work Phone: 1(530) [phone] Discharge summary [facility] Medical Records Department [address] [place] [address] Emergency Department Summary 04/23/25 MR#: [id number] Acct: [id number] Name: RAJENDRA LUCERO Rep #:[id number] 26 : 1955 69 From: Cele LYNN PCP: Dr. Phuc Martines, DO Status:AD M IN Location: [place] [address] HPI History of Present Illness Chief Complaint: [...] chest pain, abdominal pain, nausea, and vomiting. [facility] Medical History Pulmonary nodule Atrial flutter [...] Oxygen] 2 - 4 lpm QHS 11/13/17 04/2 02/19 History albuterol sulfate 90 mcg/actuation 2 inh [...] BID PRN dry 02/19/25 Unknown History aerosol ([place] Saline) nasal passages triamcinolone acetonide 0.5 % [...] Labs: Laboratory Results - last 24 hr 06/27/25 06/27/25 06/27/25 17:50 19:50 19:55 WBC 9.0 RBC 4.07 L Hgb 12.7 Hct 40.2 MCV 98.8 MCH 31.2 MCHC 31.6 L RDW Std Deviation 51.3 H RDW Coeff of Karly 14.2 Plt Count 285 MPV 10.4 Immature Gran % (Auto) 0.300 Neut % (Auto) 83.8 H Lymph % (Auto) 7.9 L [place] % (Auto) 6.6 Eos % (Auto) 0.8 [...] Clarity Clear Urine pH 6.0 Ur Specific [place] 1.015 Urine Protein 30 H Urine Glucose [...] IMPRESSION: Cardiomegaly with mild congestion. Reading Location: [facility] Brain CT 04/23/25 18:04 IMPRESSION: 1. No acute intracranial hemorrhage, midline shift or mass effect. If symptoms persist, further evaluation with MRI is recommended. 2. Mild small vessel ischemic/degenerative changes. Reading Location: [facility] EKG Initial EKG: Comments: 129 bpm, atrial [...] 83.8 H Lymph % (Auto) 7.9 L [place] % (Auto) 6.6 Eos % (Auto) 0.8 [...] Clarity Clear Urine pH 6.0 Ur Specific [place] 1.015 Urine Protein 30 H Urine Glucose [...] IMPRESSION: Cardiomegaly with mild congestion. Reading Location: [facility] Brain CT 04/23/25 18:04 IMPRESSION: 1. No acute intracranial hemorrhage, midline shift or mass effect. If symptoms persist, further evaluation with MRI is recommended. 2. Mild small vessel ischemic/degenerative changes. Reading Location: [facility] Discharge Plan Triage Chief Complaint: Palpitations ED [...] [Daily Multi-Vitamin] Tablet 1 tab PO DAILY [place] Saline 0.65 % aerosol,spray 1 spray intranasal [...] DO [Primary Care Provider] - Print Language: Sami Disposition Disposition: Acute Care Hospital [facility] What to do if you have Problems For any increased pain, shortness of breath, bleeding, nausea or vomiting, chestpain, or any unexpected problems, contact your Primary Care Provider. Call [facility] ([phone]) or report tothe closest Emergency Room. Call 911 if necessary. 04/23/252151 Cosigner Signature (if applicable): 04/24/25 0000 CC: Dr. Phuc Martines DO ~ Signed [facility]06-27-2025 Evaluation note* Diagnosis Onset Date Resolution Status Admit Date Atrial flutter with rapid ventricular response inactive April 23, 2025 9:51pm Atrial flutter acute May 07, 2025 1:02pm Shortness of breath acute May 07, 2025 1:02pm Hypertension chronic Regina 11th, 2 025 1:02pm Acute and chronic respirator y failure with hypercapnia resolved May 132024 6:22pm Acute on chronic heart failu re with preserved ejection fraction (HFpEF) resolved May 13, 2025 6:22pm Atrial fibrillation acute Augus t 2024 2:33pm long-term current use of anticoagulant acute June 08 2:33pm Atrial fibrillation acute Octob er 2024 11:00am Encounter for monitoring anti-arrhythmic therapy acute July 30, 2025 11:00am [facility] Work Phone: 1(751) 367-991006-27-2025 History and physical note [facility] Medical Records Department [address] [place] [address] H&P Exam - Hospitalist 04/23/252148 MR#: [id number] Acct: [id number] Name: RAJENDRA LUCERO Rep #:[id number] 14 : 1955 69 From: Virginia Henriquez MD PCP: Dr. Phuc Martines, DO Status:AD M IN Location: [facility] QRC825- 1 HPI - General General Date of [...] abuse recently cut back [facility] with history of increased [...] 1 and placed on a diltiazem drip. [facility] Medical History (Updated 04/23/25 @ 22:15 by [...] BID PRN dry 02/19/25 Unknown History aerosol ([place] Saline) nasal passages triamcinolone acetonide 0.5 % [...] 83.8 H, Lymph % (Auto) 7.9 L, [place] % (Auto) 6.6, Eos % (Auto) 0.8, [...] Clarity Clear, Urine pH 6.0, Ur Specific [place] 1.015, Urine Protein 30 H, Urine Glucose [...] IMPRESSION: Cardiomegaly with mild congestion. Reading Location: [facility] Brain CT 04/23/25 18:04 IMPRESSION: 1. No acute intracranial hemorrhage, midline shift or mass effect. If symptoms persist, further evaluation with MRI is recommended. 2. Mild small vessel ischemic/degenerative changes. 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 Elena did discuss this with her [...] Time: 16minutes. Charges/Coding Visit Charges Inpatient E&M: 44488 Init Hosp L3 Procedures Hospitalists Procedures: 61859 Advncd Care Plan 30 Min 04/23/25 3108 Cosigner Signature (if applicable): CC: Dr. Virginia Henriquez MD; Dr. Phuc Martines, DO~ Signed [facility]06-27-2025 Radiology Diagnostic study note [facility] Imaging Services [address] [place] [address] Brain/Head without Contrast MR#: [id number] Acct: [id number] Name: RAJENDRA LUCERO Rep #: [id number] 30 : 1955 F 69 From: Bev Drummond MD PCP: Dr. Phuc Martines DO Status: RE G ER Study:Brain/Head without Contrast Date of Exa m: 04/23/25 Exam# [id number] Ordering Dr: Krishan Hager MD EXAM: CT [...] Mild small vessel ischemic/degenerative changes. Reading Location: [facility] CC: Dr. Clay Hager MD; Dr. Phuc Martines DO ~ Power Electronics Engineer: Signed [facility]06-27-2025 Radiology Diagnostic study note [facility] Imaging Services [address] [address] Chest PA and Lateral MR#: [id number] Acct: [id number] Name: RAJENDRA LUCERO Rep #: [id number] 21 : 1955 F 69 From: Bev Drummond MD PCP: Dr. Phuc Martines DO Status: RE G ER Study:Chest PA and Lateral Date of Exam: 04/23/25 Exam# [id number] Ordering Dr: Cele Garcia EXAM: XR Chest, 2 Views CLINICAL INDICATION: SOB TECHNIQUE: Frontal and lateral views of the chest. COMPARISON: No relevant prior studies available. FINDINGS: LUNGS AND PLEURAL SPACES: See below. HEART: Cardiomegaly with mild congestion. MEDIASTINUM: Unremarkable. Normal mediastinal contour. BONES/JOINTS: Unremarkable. No acute fracture. RAD/Chest PA and Lateral IMPRESSION: Cardiomegaly with mild congestion. Reading Location: [facility] CC: Dr. Phuc Martines DO; LEAH Cooley ~ Power Electronics Engineer: Signed [facility]06-27-2025 Instructions* Patient Instructions* Tyra Carson APRN.CNP - 04/23/2025 3:31 PM EDT Sent patient to ER [facility] NoteHNO ID: [id number] Author: TYRA CARSON APRN.CNP Service: ? Author Type: Nurse [...] week for further evaluation. and Recording using [employer] software for draft documentation of the visit was discussed with the patient/authorized guest services representative; all questions welcomed and answered. Patient/authorized guest services representative agreed to proceed HISTORY OF PRESENT ILLNESS: Linwood was in the hospital in January for new onset of atrial flutter. She was initiated on eliquis and metoprolol and now being seen by cardiology. She was referred to a [facility] cardio electro doc and is in [...] disease) (HCC) 02/03/2010 Coronary artery disease No UT, CHF. No heart cath. Diverticulosis of colon [...] Sig nitrofurantoin monohydrate a (more content not included)...[facility]06-27-2025 History of Present illness Narrative* Tyra Carson, CH[facility] CENTER ASSISTANT DIRECTOR.PRACTICE NURSE - 04/23/2025 2:49 PM EDT This is [...] week for further evaluation. and Recording using [employer] software for draft documentation of the visit was discussed with thepatient/authorized guest services representative; all questions welcomed and answered. Patient/authorized guest services representative agreed to proceed HISTORY OF PRESENT ILLNESS: Linwood was in the hospital in January for new onset of atrial flutter. She was initiated on eliquis and metoprolol and now being seen by cardiology. She was referred to a [facility] cardio electro doc and [place] the [...] disease) (HCC) 02/03/2010 Coronary artery disease No UT, CHF. No heart cath. Diverticulosis of colon [...] hours as needed for wheezing/shortness of breath. haajkmjqeef-wmynkitin-tyywkcia (TRELEGY ELLIPTA) 200-62.5-25 mcg inhalation powder Inhale [...] her presentation/symptoms/assessment , she was sent to [facility] ER for further evaluation. Her daughter was coming to pick her up. Report was called to [facility] ER physician/hospitalist. Discussed treatment plan and patient voices understanding. Patient's questions answered appropriately. Medications and potential side effects were discussed and patient voices understanding. Medical Decision Making: Problems: High: Chronic illness with severe change Risk: High: Decision on hospitalization Medical Decision Making Level: 5 - High Return to the office as scheduled or as needed for worsening/no improvement. Tyra Carson APRN.PRACTICE NURSE Recording using [employer] software for draft documentation of the visit was discussed with the patient/authorized guest services representative; all questions welcomed and answered. Patient/authorized guest services representative agreed to proceed documented in [facility]Mer[facility] Telephone encounter Note * Telephone Encounter - Sandra Landis MA - 04/22/2025 8:29 AM EDT Pt was notified of the results. Pt verbalized understanding. Sandra Landis MA [facility]06-26-2025 Miscellaneous Notes* Telephone Encounter - Sandra [...] with symptoms. documented in this encounterMer[facility]06-26-[facility] Telephone encounter Note * Telephone Encounter [...] it is helping with symptoms. [facility] Work Phone: [phone]) 573-106906-24-2025 Note* Addendum Note - Milena Chang LPN - 04/20/2025 11:12 AM EDTAddended by: MILENA CHANG on: 04/20/2025 11:12 AM Modules accepted: Orders [facility]06-24-2025 Miscellaneous Notes* Addendum Note - Milena Chang LPN - 04/20/2025 11:12 AM EDTAddended by: MILENA CHANG on: 04/20/2025 11:12 AM Modules accepted: Orders documented in this encounterMercy [facility]06-24-2025 NoteHNO ID: [id number] Author: DAMON EUGENE APRN.[facility] Service: ? Author Type: Nurse Practitioner [...] week for further evaluation. and Recording using [employer] software for draft documentation of the visit was discussed with the patient/authorized guest services representative; all questions welcomed and answered. Patient/authorized guest services representative agreed to proceed M[facility] ProceduresAd[facility]06-[facility] History of Present illness Narrative* Damon Eugene APRN.PRACTICE NURSE - 04/20/2025 10:23 AM EDT [employer] [...] of the visit was discussed with thepatient/authorized guest services representative; all questions welcomed and answered. Patient/authorized guest services representative agreed to proceed MDM Procedures documented in this encounterMercy [facility]06-04-2025 NoteHNO ID: [id number] Author: JANETTE DAMON APRN.CNP Service: ? Author Type: Nurse Practitioner Type: Progress Notes Filed: 03/31/2025 13:06 Note Text: 03/31/2025 Patient presents with: BP Check: Had appointment with cardiology yesterday; MANI Elena Recording using ambient AI software for draft documentation of the visit was discussed with the patient/authorized guest services representative; all questions welcomed and answered. Patient/authorized guest services representative agreed to proceed SUBJECTIVE: This is a 69 year old that is here today for Above Complaints.. Atrial Flutter: - Recent consultation with Dr. Elena, who referred her to Dr. Marcos Santos, an ice scraper, for potential ablation. - Dr. Elena indicated [...] Atrial flutter (HCC) CHF (congestive heart failure) ([facility]) Chronic hypoxemic respiratory failure ([facility]) COPD (chronic obstructive pulmonary disease) ([facility]) 02/03/2010 Coronary artery disease No UT, CHF. No heart cath. Diverticulosis of colon [...] hours as needed for wheezing/shortness of breath. lssdcpptqqj-wxxblgdwj-cmttypga (TRELEGY ELLIPTA) 200-62.5-25 mcg inhalation powder Inhale [...] 03/01/2026 Diabetes Screening du (more content not included)...[facility] 03-31-2025 History of Present illness Narrative* PodlogarJanette APRN.ELVIA - 03/31/2025 12:50 PM EDT 03/31/2025 Patient presents with: BP Check: Had appointment with cardiology yesterday; G Dr. Elena Recording using [employer] software for draft documentation of the visit was discussed with the patient/authorized guest services representative; all questions welcomed and answered. Patient/authorized guest services representative agreed to proceed SUBJECTIVE: This is a 69 year old that is here today for Above Complaints.. Atrial Flutter: - Recent consultation with Dr. Elena, who referred her to Dr. Marcos Santos, an ice scraper, for potential ablation. - Dr. Elena indicated [...] disease) (HCC) 02/03/2010 Coronary artery disease No UT, CHF. No heart cath. Diverticulosis of colon [...] hours as needed for wheezing/shortness of breath. voqeowpnuap-uxhtdagxx-mqrignui (TRELEGY ELLIPTA) 200-62.5-25 mcg inhalation powder Inhale [...] (I48.92) - Referral to Dr. Marcos Santos, ice scraper, for potential ablation procedure. - Patient understands the procedure may improve cardiac function and respiratory status. - Upcoming sleep test ordered by Pulmonology; patient considering cancellation due to previous experience and cost concerns. Advised to inform Pulmonology if decision to cancel is made. - Follow-up with Pulmonology scheduled in May. Janette Damon APRN.PRACTICE NURSE Prescription instructions reviewed with patient as applicable. 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 documented in this encounterMercy Health [facility]05-14-2025 History of Present illness Narrative* Rajendra Goodman APRN.CNP - 03/10/2025 1:00 PM EDT Images from the original note were not included. Pulmonary Medicine Patients name: Rajendra Palumbo PCP: Phuc Martines DO CC: concern for ROXY HPI: Rajendra Lucero is a 69 year old female former 55-jhri-kmwr smoker, quitting in 2008 with PMH significant [...] that time. She was just hospitalized at [facility] 02/19 - 02/23 for SOB/leg swelling [...] heart failure) (HCC) Chronic hypoxemic respiratory failure ([facility]) COPD (chronic obstructive pulmonary disease) ([facility]) 02/03/2010 Coronary artery disease No UT, CHF. No heart cath. Diverticulosis of colon [...] ELLIPTA 200-62.5-25 mcg inhalation powder Generic drug: hieguslwzyc-zwsjlhzqo-bgysiigy Inhale 1 Puff as instructed once daily. [...] Recommendations: Followup LDCT in 6 months Reference: [employer]. Lung CT Screening Reporting and Data System (Lung-RADS). Available at: http://www.acr.org/Quality-Safety/Resources/LungRADS Power Electronics Engineer: PAT Transcribe Date/Time: Jan 25 2025 11:45A Dictated by : VIDAL PULLIAM MD This examination was interpreted and the report reviewed and electronically signed by: VIDAL PULLIAM MD on Jan 25 2025 11:51AM EST Results-Findings * * *Final Report* * * DATE OF EXAM: Jan 25 2025 11:06AM [facility] 0561 - CT LUNG FOLLOWUP [facility] / PROCEDURE REASON: Lung nodule, < 6mm, high cancer risk * * * * Physician Interpretation * * * * EXAMINATION: CT LUNG FOLLOWUP WO IVCON CLINICAL HISTORY: Lung nodules Technique: Spiral CT acquisition of the chest from the thoracic inlet to the upper abdomen without contrast. MQ: CTLCS_6 Followup LDCT Patient characteristics: * Cxsl-vt-Ruedu: 1955; Age at exam: 69 years * Gender: Female * Lung Disease: Asymptomatic (no signs or symptoms of lung disease) * Number of Pack Years: 38 * Current smoker (=0) or Number of Years since Quit: 15 * Ordering provider and NPI: MARICRUZ CAMP [id number] * Interpreting radiologist and NPI: Nicole [id number] Exam acquisition parameters: * Exam Date: 01/25/2025 11:06 AM * Site: [facility] * * CT System Wax Pourer: [employer] * CT System Model: Sensation * Tube [...] which included preparing to see the patient, chsh-qz-xvjk patient care, completing clinical documentation, performing a medically appropriate examination, counseling and educating the patient/family/caregiver, and ordering medications, tests,or procedures. documented in this encounterMercy Health [facility]05-14-2025 NoteHNO ID: [id number] Author: RAJENDRA GOODMAN APRN.CNP Service: ? Author Type: Nurse Practitioner Type: Progress Notes Filed: 03/10/2025 13:47 Note Text: Pulmonary Medicine Patients name: Rajendra Palumbo PCP: Phuc Martines DO CC: concern for ROXY HPI: Rajendra Lucero is a 69 year old female former 54-lscq-nynw smoker, quitting in 2008 with PMH significant [...] that time. She was just hospitalized at [facility] 02/19 - 02/23 for SOB/leg swelling [...] disease) (HCC) 02/03/2010 Coronary artery disease No UT, CHF. No heart cath. Diverticulosis of colon [...] ELLIPTA 200-62.5-25 mcg inhalation powder Generic drug: ksgrqrmcgwr-bosakaxcn-cqvyrqqv Inhale 1 Puff as instructed once daily. [...] Recommendations: Followup LDCT in 6 months Reference: [employer] (more content not included)...[facility]05-05-2025 Instructions* Patient Instructions* Janette Damon APRN.CNP - 03/01/2025 12:45 PM EDT Follow-up with pulmonology and discuss possible sleep apnea Make follow-up with cardiology Hold Amlodipine for now documented in this encounterMercy Health [facility]05-05-2025 History of Present illness Narrative* Janette Damon APRN.CNP - 03/01/2025 12:20 PM EDT 02/26/2025 Patient presents with: Hospital F/U: [facility] COPD SUBJECTIVE: This is a 69 year old that is here today for Above Complaints. HOSPITAL/ER FOLLOW UP: Reason for visit: SOB, and leg swelling Which facility: [facility] Date of visit: 02/19/2025-02/23/2025 Diagnosis: COPD, [...] as yet. Was wanting to stay within [facility] system. Denies dyspnea, orthopnea wheezing, chest pain, palpitations or leg swelling. Follows with [facility] museum registrar. Last appointment on 12/25/2024. Uses 3/4L/NC at rest and 6 L/NC with exertion. She feels her breathing as at her baseline. ER records reviewed PAST MEDICAL HISTORY Diagnosis Date Chronic hypoxemic respiratory failure (HCC) COPD (chronic obstructive pulmonary disease) (HCC) 02/03/2010 Coronary artery disease No UT, CHF. No heart cath. Diverticulosis of colon [...] hours as needed for wheezing/shortness of breath. emergxjndkn-mwdftculz-btbpeabc (TRELEGY ELLIPTA) 200-62.5-25 mcg inhalation powder Inhale [...] 427.32, ICD10: I48.92 - she follow-up with [facility] cardiology if unable to get appointment [...] which included preparing to see the patient, rxqv-ou-udyb patient care, completing clinical documentation, obtaining and/or reviewing separately obtained history, performing a medically appropriate examination, counseling and educating the pat ient/family/caregiver, and ordering medications, tests, or procedures. documented in this encounterMercy Health [facility]05-05-2025 NoteHNO ID: [id number] Author: JANETTE DAMON APRN.CNP Service: ? Author Type: Nurse Practitioner Type: Progress Notes Filed: 03/01/2025 14:15 Note Text: 02/26/2025 Patient presents with: Hospital F/U: [facility] COPD SUBJECTIVE: This is a 69 year old that is here today for Above Complaints. HOSPITAL/ER FOLLOW UP: Reason for visit: SOB, and leg swelling Which facility: [facility] Date of visit: 02/19/2025-02/23/2025 Diagnosis: COPD, [...] as yet. Was wanting to stay within [facility] system. Denies dyspnea, orthopnea wheezing, chest pain, palpitations or leg swelling. 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 Last appointment on 12/25/2024. Uses 3/4L/NC at rest and 6 L/NC with exertion. She feels her breathing as at her baseline. ER records reviewed PAST MEDICAL HISTORY Diagnosis Date Chronic hypoxemic respiratory failure (HCC) COPD (chronic obstructive pulmonary disease) (HCC) 02/03/2010 Coronary artery disease No UT, CHF. No heart cath. Diverticulosis of colon [...] hours as needed for wheezing/shortness of breath. xrocswylkzg-dvfrleaie-ooadcgjm (TRELEGY ELLIPTA) 200-62.5-25 mcg inhalation powder Inhale [...] due on 01/13/2030 In (more content not included)...[facility]04-29-2025 Discharge summary Author Yee [facility]a [facility] Note Date/Time February 23, 2025 1:2 2pm [facility] Medical Records Department [address] [place] [address] Instructions for Home/Discharge Instructions 02/23/25 1320 MR#: [id number] Acct: [id number] Name: RAJENDRA LUCERO Rep #:[id number] : [...] [Daily Multi-Vitamin] Tablet 1 tab PO DAILY [place] Sal[place] 0.65 % aerosol,spray 1 spray intranasal [...] Kym Norton MD ~ Signed [facility] Work Phone: 1(450) 471-739604-29-2025 Discharge summary Author Yee Jones [facility] Note Date/Time February 23, 2025 2:4 9pm [facility] Medical Records Department [address] [place] [address] Discharge Summary 02/23/25 1322 MR#: [id number] Acct: [id number] Name: RAJENDRA LUCERO Rep #:[id number] : 1955 69 From: Yee Jones MD PCP: Dr. Phuc Martines DO Status:AD M IN Location: [facility] [id number] Providers Date of Admission: 02/19/25 Date [...] sodium chloride 0.65 % nasal spray aerosol ([place] Saline) 1 spray intranasal BID PRN dry [...] (Auto) 78.1 H, Lymph % (Auto) 11.2 L,[place] % (Auto) 7.9, Eos % (Auto) 1.7, [...] [Daily Multi-Vitamin] Tablet 1 tab PO DAILY [place] Sal[place] 0.65 % aerosol,spray 1 spray intranasal [...] Self Care Charges/Coding Visit Charges Inpatient E&M: 94783 Disch Hosp >30min 02/23/25 1449 <Electronically signed by Yee Jones MD> Cosigner Signature (if applicable): CC: Dr. Phuc Martines DO; Dr. Yee Jones MD~ Signed [facility] Work Phone: 1(554) 904-950804-29-2025 Discharge summary [facility] Medical Records Department [address] [place] [address] Discharge Summary 02/23/25 1322 MR#: [id number] Acct: [id number] Name: RAJENDRA LUCERO Rep #:[id number] : 1955 69 From: Yee Jones MD PCP: Dr. Phuc Martines DO Status:AD M IN Location: [place] [address] Providers Date of Admission: 02/19/25 Date of [...] sodium chloride 0.65 % nasal spray aerosol ([place] Saline) 1 spray intranasal BID PRN dry [...] (Auto) 78.1 H, Lymph % (Auto) 11.2 L,[place] % (Auto) 7.9, Eos % (Auto) 1.7, [...] [Daily Multi-Vitamin] Tablet 1 tab PO DAILY [place] Saline 0.65 % aerosol,spray 1 spray intranasal [...] Self Care Charges/Coding Visit Charges Inpatient E&M: 63755 Disch Hosp >30min 02/23/25 1449 Cosigner Signature (if applicable): CC: Dr. Phuc Martines DO; Dr. Yee Jones MD~ Signed [facility]04-29-2025 Consult note [facility] Medical Records Department [address] [place] [address] Counseling Note - Pharmacy 02/23/25 1410 MR#: [id number] Acct: [id number] Name: RAJENDRA LUCERO Rep #:[id number] : 1955 69 From: Milena Rodas PCP: Dr. Phuc Martines DO Status:AD M IN Location: [facility] [id number] Pharmacy [facility]acy Service has performed discharge medication [...] of their dischargemedications. Patient counseled by pharmacy account directorPete. Medications at Discharge Home Medications Oxygen, Home [...] sodium chloride 0.65 % nasal spray aerosol ([place] Saline) 1 spray intranasal BID PRN dry [...] applicable): Date CC: ~ Signed [facility]04-29-2025 Discharge summary [facility] Medical Records Department [address] [place] [address] Instructions for Home/Discharge Instructions 02/23/25 1320 MR#: [id number] Acct: [id number] Name: RAJENDRA LUCERO Rep #:[id number] : [...] [Daily Multi-Vitamin] Tablet 1 tab PO DAILY [place] Saline 0.65 % aerosol,spray 1 spray intranasal [...] Kym Norton MD ~ Signed [facility]04-29-2025 [facility] Progress note Author [facility] Note Date/Time February 22, 2025 4:4 4pm [facility] Medical Records Department [address] [place] [address] Progress Note 02/22/25 1411 MR#: [id number] Acct: [id number] Name: RAJENDRA LUCERO Rep #:[id number] : 1955 69 From: Yee Jones MD PCP: Dr. Phuc Martines DO Status:AD M IN Location: [place] [address] Subjective Subjective Patient seen and examined. She [...] Output Total 1650 / 1650 0 / 2049 700 / 700 Balance -400 [...] with ambulation. Charges/Coding Visit Charges Inpatient E&M: 28458 Subs Hosp L2 02/22/25 1644 <Electronically signed by Yee Jones MD> Yee Jones MD Cosigner Signature (if applicable): CC: ~ Signed [facility] Work Phone: 1(896) 779-445304-28-2025 Progress note [facility] Medical Records Department [address] [place] [address] Progress Note 02/22/25 1411 MR#: [id number] Acct: [id number] Name: RAJENDRA LUCERO Rep #:[id number] : 1955 69 From: Yee Jones MD PCP: Dr. Phuc Martines, DO Status:AD M IN Location: [place] [address] Subjective Subjective Patient seen and examined. She [...] with ambulation. Charges/Coding Visit Charges Inpatient E&M: 85806 Subs Hosp L2 02/22/25 0653 Yee Herron Signature (if applicable): CC: ~ Signed [facility]04-27-2025 Progress note Author Claudia Valerio [facility] Note Date/Time February 21, 2025 3:2 8pm [facility] Medical Records Department [address] [place] [address] Progress Note - Hospitalist 02/21/25 1144 MR#: [id number] Acct: [id number] Name: RAJENDRA LUCERO Rep #:[id number] : 1955 69 From: Claudia Valerio DO PCP: Dr. Phuc Martines, DO Status:AD M IN Location: [place] [address] Reason for Visit Reason for Visit: Shortness [...] follow-up and would like [facility]--> she stated she would get [...] - Patient follows with pulmonary medicine at [facility] - Does not seem to be [...] on admission Charges/Coding Visit Charges Inpatient E&M: 57665 Subs Hosp L2 02/21/25 1528 <Electronically signed by Claudia Valerio DO> Cosigner Signature (if applicable): CC: ~ Signed [facility] Work Phone: 1(447) 645-763904-27-2025 Progress note [facility] Medical Records Department [address] [place] [address] Progress Note - Hospitalist 02/21/25 1144 MR#: [id number] Acct: [id number] Name: RAJENDRA LUCERO Rep #:[id number] : 1955 69 From: Claudia Valerio DO PCP: Dr. Phuc Martines DO Status:AD M IN Location: [place] [address] Reason for Visit Reason for Visit: Shortness [...] follow-up and would like to [facility] at [facility]--> she stated she would get [...] - Patient follows with pulmonary medicine at [facility] - Does not seem to be [...] on admission Charges/Coding Visit Charges Inpatient E&M: 38285 Subs Hosp L2 02/21/25 1528 Cosigner Signature (if applicable): CC: ~ Signed [facility]04-26-2025 Progress note Author Claudia Valerio [facility] Note Date/Time February 20, 2025 2:4 4[facility] Department [address] [place] [address] Progress Note - Hospitalist 02/20/25 0807 MR#: [id number] Acct: [id number] Name: RAJENDRA LUCERO Rep #:[id number] : 1955 69 From: Claudia Valerio DO PCP: Dr. Phuc Martines, DO Status:AD M IN Location: [place] [address] Reason for Visit Reason for Visit: Shortness [...] 80.0 H, Lymph % (Auto) 9.8 L, [place] % (Auto) 8.5, Eos % (Auto) 1.0, [...] Clarity Clear, Urine pH 6.0, Ur Specific [place] 1.010, Urine Protein Negative, Urine Glucose (UA) [...] Cholesterol, Calc 101, VLDL Cholesterol 12, HDL Mjxutaliids45, Cholesterol/HDL Ratio 2.63, TSH 0.626 Micro: Microbiology [...] - Patient follows with pulmonary medicine at [facility] - Does not seem to be [...] on admission Charges/Coding Visit Charges Inpatient E&M: 50456 Subs Hosp L2 02/20/25 1444 <Electronically signed by Claudia Valerio DO> Cosigner Signature (if applicable): CC: ~ Signed [facility] Work Phone: 1(200) 702-733004-26-2025 Progress note [facility] Medical Records Department [address] [place] [address] Progress Note - Hospitalist 02/20/25806 MR#: [id number] Acct: [id number] Name: RAJENDRA LUCERO Rep #:[id number] : 1955 69 From: Claudia Valerio DO PCP: Dr. Phuc Martines, DO Status:AD M IN Location: [facility] [id number] Reason for Visit Reason for Visit: [...] 80.0 H, Lymph % (Auto) 9.8 L, [place] % (Auto) 8.5, Eos % (Auto) 1.0, [...] Clarity Clear, Urine pH 6.0, Ur Specific [place] 1.010, Urine Protein Negative, Urine Glucose (UA) [...] 223, MPV 11.2, Sodium 142, Potassium 3.8, Rjnqsdzt94 L, Carbon Dioxide 34.3 H, Anion Gap13, [...] Cholesterol, Calc 101, VLDL Cholesterol 12, HDL Vkwhjduyntz40, Cholesterol/HDL Ratio 2.63, TSH 0.626 Micro: Microbiology [...] - Patient follows with pulmonary medicine at [facility] - Does not seem to be [...] on admission Charges/Coding Visit Charges Inpatient E&M: 68739 Subs Hosp L2 02/20/25 1444 Cosigner Signature (if applicable): CC: ~ Signed [facility]04-26-2025 Radiology Diagnostic study note [facility] Imaging Services [address] [place] [id number] CTA Chest W/WO Contrast MR#: [id number] Acct: [id number] Name: RAJENDRA LUCERO Bora Rep #: [id number] : 1955 F 69 From: Bev Drummond MD PCP: Dr. Phuc Martines, DO Status: AD M IN Study:CTA Chest W/WO Contrast Date of Exam: 02/20/25 Exam# [id number] Ordering Dr: Kinza Valerio DO EXAM: CT [...] in 6 months is recommended. Reading Location: [facility] CC: Dr. Phuc Martines DO; Dr. Claudia Valerio DO ~ Power Electronics Engineer: Signed [facility]04-25-2025 History and physical note Author Kym Norton [facility] Note Date/Time February 19, 2025 4:1 3pm [facility] Medical Records Department [address] [place] [address] H&P Exam - Hospitalist 02/19/25 1548 MR#: [id number] Acct: [id number] Name: RAJENDRA LUCERO Rep #:[id number] : 1955 69 From: Kym Norton MD PCP: Dr. Phuc Martines DO Status:AD M IN Location: [facility] [id number] HPI - General General Date of Admission: 02/19/25 Date of Service: 02/19/25 Chief Complaint: Increase shortness of breath and lower extremity swelling HPI Narrative RAJENDRA LUCERO, is a 69-year-old female with a history of COPD on 3 L nasal cannula and hypertension who presented to [facility] ED 02/19/2025 with increased shortness [...] not note any history of withdrawal symptoms. [facility] Medical History COPD (chronic obstructive pulmonary disease) [...] BID PRN dry 02/19/25 Unknown History aerosol ([place] Saline) nasal passages triamcinolone acetonide 0.5 % [...] 80.0 H, Lymph % (Auto) 9.8 L, [place] % (Auto) 8.5, Eos % (Auto) 1.0, [...] Clarity Clear, Urine pH 6.0, Ur Specific [place] 1.010, Urine Protein Negative, Urine Glucose (UA) [...] setting of COPD on 3 L home Q7spynevf secondary to new onset heart failure -Patient [...] 78 Minutes Charges/Coding Visit Charges Inpatient E&M: 27905 Init Hosp L3 02/19/25 1613 <Electronically signed by Kym Norton MD> Cosigner Signature (if applicable): CC: Dr. Phuc Martines DO; Dr. Kym Norton MD~ Signed [facility] Work Phone: 1(963) 676-684404-25-2025 Evaluation note* Diagnosis Onset Date Resolution Status Admit Date Atrial flutter acute January 3:53pm Dyspnea on exertion acute February 19, 2025 3:53pm Shortness of breath acute February 19, 2025 3:53pm Acute on chronic hypoxic respiratory failure chronic February 19, 2025 3:53pm [facility] Work Phone: 1(473) 569-242804-25-2025 Evaluation note* Diagnosis Onset Date Resolution Status Admit Date Atrial flutter acute January 3:53pm Shortness of breath acute February 19, 2025 3:53pm Acute on chronic hypoxic respiratory failure resolved February 19, 2025 3:53pm Dyspnea on exertion resolved February 19, 2025 3:53pm Atrial flutter acute March 30, 2025 11:24am [facility] Work Phone: 1(965) 914-142204-25-2025 Evaluation note* Diagnosis Onset Date Resolution Status [...] ventricular response acute April 23, 2025 9:51pm [facility] Work Phone: 1(271) 459-858904-25-2025 Evaluation note* Diagnosis Onset Date Resolution Status [...] of breath acute May 07, 2025 1:02pm [facility] Work Phone: 1(647) 686-407804-25-2025 Evaluation note* Diagnosis Onset Date Resolution Status [...] May 07, 2025 1:02pm Hypertension chronic May 07, 025 1:02pm [facility] Work Phone: 1(709) 993-798704-25-2025 Evaluation note* Diagnosis Onset Date Resolution Status [...] May 07, 2025 1:02pm Hypertension chronic May 07, 2 025 1:02pm Acute on chronic heart failu re with preserved ejection fraction (HFpEF) acute May 13, 2025 6:22pm Acute and chronic respirator y failure with hypercapnia chronic May 132024 6:22pm [facility] Work Phone: 1(806) 232-177604-25-2025 Evaluation note* Diagnosis Onset Date Resolution Status [...] May 07, 2025 1:02pm Hypertension chronic May 07, 2 025 1:02pm Acute and chronic respirator y failure with hypercapnia resolved May 132024 6:22pm Acute on chronic heart failu re with preserved ejection fraction (HFpEF) resolved May 13, 2025 6:22pm Atrial fibrillation acute Augus t 2024 2:33pm long-term current use of anticoagulant acute June 08 2:33pm [facility] Work Phone: 1(874) 295-447204-25-2025 Discharge summary Author Linwood Ivy [facility] Note Date/Time February 19, 2025 3:4 0pm [facility] Medical Records Department [address] [place] [address] Emergency Department Summary 02/19/25 MR#: [id number] Acct: [id number] Name: RAJENDRA LUCERO Rep #:[id number] : 1955 69 From: Linwood Ivy DO PCP: Dr. Phuc Martines DO Status:AD M IN Location: [facility] [id number] Linwood Ivy DO [...] not coughing up significant mount of phlegm. [facility] Medical History COPD (chronic obstructive pulmonary [...] BID PRN dry 02/19/25 Unknown History aerosol ([place] Saline) nasal passages triamcinolone acetonide 0.5 % [...] follow commands and that she was at [facility] year is 2024 Skin: Warm, dry, intact [...] 80.0 H Lymph % (Auto) 9.8 L [place] % (Auto) 8.5 Eos % (Auto) 1.0 [...] Clarity Clear Urine pH 6.0 Ur Specific [place] 1.010 Urine Protein Negative Urine Glucose (UA) [...] [Daily Multi-Vitamin] Tablet 1 tab PO DAILY [place] Saline 0.65 % aerosol,spray 1 spray intranasal BID PRN (Reason: dry nasal passages) triamterene-hydrochlorothiazid 37.5-25 mg capsule 1 cap PO DAILY Patient Comments: PT TAKES IN AFTERNOON guaifenesin [Mucus Relief ER] 1,200 MG tablet 1,200 mg PO BID PRN (Reason: cough) Primary Care Provider: Phuc Martines Referrals: Phuc Martines DO [Primary Care Provider] - Print Language: Sami Disposition Disposition: Acute Care Hospital [facility] What to do if you have Problems For any increased pain, shortness of breath, bleeding, nausea or vomiting, chestpain, or any unexpected problems, contact your Primary Care Provider. Call [facility] ([phone]) or report to the closest Emergency Room. Call 911 if necessary. 02/19/25 1504 <Electronically signed by Linwood Ivy DO> Cosigner Signature (if applicable): CC: Dr. Phuc Martines DO ~ Signed [facility] Work Phone: 1(888) 378-699904-25-2025 History and physical note [facility] Medical Records Department [address] [place] [address] H&P Exam - Hospitalist 02/19/25 1548 MR#: [id number] Acct: [id number] Name: RAJENDRA LUCERO Rep #:[id number] : 1955 69 From: Kym Norton MD PCP: Dr. Phuc Martines DO Status:AD M IN Location: [place] [id number] HPI - General General Date of Admission: 02/19/25 Date of Service: 02/19/25 Chief Complaint: Increase shortness of breath and lower extremity swelling HPI Narrative RAJENDRA LUCERO, is a 69-year-old female with a history of COPD on 3 L nasal cannula and hypertension who presented to [facility] ED 02/19/2025 with increased shortness [...] does not noteany history of withdrawal symptoms. [facility] Medical History COPD (chronic obstructive pulmonary disease) [...] BID PRN dry 02/19/25 Unknown History aerosol ([place] Saline) nasal passages triamcinolone acetonide 0.5 % [...] 80.0 H, Lymph % (Auto) 9.8 L, [place] % (Auto) 8.5, Eos % (Auto) 1.0, [...] Clarity Clear, Urine pH 6.0, Ur Specific [place] 1.010, Urine Protein Negative, Urine Glucose (UA) [...] setting of COPD on 3 L home [id number] secondary to new onset heart failure -Patient [...] 78 Minutes Charges/Coding Visit Charges Inpatient E&M: 46416 Init Hosp L3 02/19/25 1613 Cosigner Signature (if applicable): CC: Dr. Phuc Martines DO; Dr. Kym Norton MD~ Signed [facility]04-25-2025 Discharge summary [facility] Medical Records Department [address] [place] [address] Emergency Department Summary 02/19/25 MR#: [id number] Acct: [id number] Name: RAJENDRA LUCERO Rep #:[id number] : 1955 69 From: Linwood Ivy DO PCP: Dr. Phuc Martines DO Status:AD M IN Location: [place] [address] Linwood Ivy DO on [...] not coughing up significant mount of phlegm. [facility] Medical History COPD (chronic obstructive pulmonary [...] BID PRN dry 02/19/25 Unknown History aerosol ([place] Saline) nasal passages triamcinolone acetonide 0.5 % 1 applic topical BID PRN itching 02/19/25 Unknown History topical cream triamterene 37.5 1 cap PO DAILY 02/19/25 0402/19 History mg-hydrochlorothiazide 25 mg capsule Allergy/AdvReac Type [...] follow commands and that she was at [facility] year is 2024 Skin: Warm, dry, intact [...] 80.0 H Lymph % (Auto) 9.8 L [place] % (Auto) 8.5 Eos % (Auto) 1.0 [...] Clarity Clear Urine pH 6.0 Ur Specific [place] 1.010 Urine Protein Negative Urine Glucose (UA) [...] [Daily Multi-Vitamin] Tablet 1 tab PO DAILY [place] Saline 0.65 % aerosol,spray 1 spray intranasal BID PRN (Reason: dry nasal passages) triamterene-hydrochlorothiazid 37.5-25 mg capsule 1 cap PO DAILY Patient Comments: PT TAKES IN AFTERNOON guaifenesin [Mucus Relief ER] 1,200 MG tablet 1,200 mg PO BID PRN (Reason: cough) Primary Care Provider: Phuc Martines Referrals: Phuc Martines DO [Primary Care Provider] - Print Language: Sami Disposition Disposition: Acute Care Hospital [facility] What to do if you have Problems For any increased pain, shortness of breath, bleeding, nausea or vomiting, chestpain, or any unexpected problems, contact your Primary Care Provider. Call [facility] ([phone]) or report tothe closest Emergency Room. Call 911 if necessary. 02/19/25 1504 Cosigner Signature (if applicable): CC: Dr. Phuc Martines DO ~ Signed [facility]04-25-2025 Radiology Diagnostic study note [facility] Imaging Services [address] [place] [address] Chest PA and Lateral MR#: [id number] Acct: [id number] Name: RAJENDRA LUCERO Rep #: [id number] : 1955 F 69 From: Vicki Mccabe MD PCP: Dr. Phuc Martines DO Status: RE G ER Study:Chest PA and Lateral Date of Exam: 02/19/25 Exam# [id number] Ordering Dr: Yonatan Ivy DO PROCEDURE: CHEST [...] Martines DO; Dr. Linwood Ivy DO ~ Power Electronics Engineer: Signed [facility]04-01-2025 Telephone encounter Note* Telephone Encounter - Maricruz Camp APRN.CNP - 01/26/2025 4:47 PM EDT Left message for patient to check Mychart message and call back if she wants to discuss this further. Category 3 LDCT due to residual RML opacity, likely inflammatory/iinfectious. Maricruz Camp APRN.CNP [facility]04-01-2025 Miscellaneous Notes* Telephone Encounter - Maricruz Camp APRN.CNP - 01/26/2025 4:47 PM EDT Left message for patient to check Mychart message and call back if she wants to discuss this further. Category 3 LDCT due to residual RML opacity, likely inflammatory/iinfectious. Maricruz Camp APRN.CNP documented in this encounterMer[facility]03-31-2025 Instructions* Patient Instructions* Maricruz Camp APRN.CNP [...] curative intent treatment Lung Cancer Screening hotline: [phone] Specialist Providers: (Basia Guzman CNP; Josefina Ceron CNP; Pito Dewitt CNP; ELVIA Dixon; Lakia Ohara PA-C; Keely Castillo PA-C; Lisha Cruz CNP, Nadia Wilson PRACTICE NURSE, Veronica Grover PRACTICE NURSE, Maricruz Camp CNP & Chiquis Rico PA-C): [phone] documented in this encounterMercy Health [facility]03-31-2025 History of Present illness Narrative* Pito Galaviz, RT(R) - 01/25/2025 10:40 AM EDT [...] PATIENT PRESENTS WITH AN IMPLANTABLE OR ATTACHED DEPUTY SHERIFF LIEUTENANT: No RADIOLOGY DEPARTMENT: CT; Exam(s) Completed: Lung Screening PERIPHERAL IV DATA: Not applicable SIGNED BY: RT Flower(Tarun) January 25, 2025 1:52 PM documented in this encounterMercy Health [facility]03-31-2025 NoteHNO ID: [id number] Author: PITO GALAVIZ RT(R) Service: ? Author Type: Gravity Meter Observer Type: Progress Notes Filed: 01/25/2025 13:52 Note [...] PATIENT PRESENTS WITH AN IMPLANTABLE OR ATTACHED DEPUTY SHERIFF LIEUTENANT: No RADIOLOGY DEPARTMENT: CT; Exam(s) Completed: Lung Screening PERIPHERAL IV DATA: Not applicable SIGNED BY: RT Flower(R) January 25, 2025 1:52 [facility]03-31-2025 NoteHNO ID: [id number] Author: MARICRUZ CAMP APRN.PRACTICE NURSE Service: ? Author Type: Nurse Practitioner Type: [...] activities of daily living. Modified Medical Research Te-Moak Dyspnea Scale (MMRC) On level ground I [...] disease) (HCC) 02/03/2010 Coronary artery disease No UT, CHF. No heart cath. Diverticulosis of colon [...] to 08/29/2022. Prior PFTS: SPIROMETRY BASELINE ONLY ([id number]) - ordered on 03/16/22 No textual results for order. SPIROMETRY BASELINE ONLY ([id number]) - ordered on 03/31/20 [facility] [address] [place] [address] Test Date: 2020-03-31 Pat Name: RAJENDRA LUCERO Department: Room: Gender: Female Gravity Meter Observer: YASMIN Jesus : 1955 Requested By: Ivan CHRISTINE Order Number: [id number] Reading MD: Joel Childs Interpretive Statements ATS/ERS acceptabil (more content not included)...[facility] 01-25-2025 History of Present illness Narrative* Maricruz Camp APRN.[facility] - 01/25/2025 10:22 AM EDT Chief [...] activities of daily living. Modified Medical Research Te-Moak Dyspnea Scale (MMRC) On level ground I [...] disease) (HCC) 02/03/2010 Coronary artery disease No UT, CHF. No heart cath. Diverticulosis of colon [...] to 08/29/2022. Prior PFTS: SPIROMETRY BASELINE ONLY ([id number]) - ordered on 03/16/22 No textual results for order. SPIROMETRY BASELINE ONLY ([id number]) - ordered on 03/31/20 [place] [place] [address] Test Date: 2020-03-31 Pat Name: RAJENDRA LUCERO Department: Room: Gender: Female Gravity Meter Observer: YASMIN Lee : 1955 Requested By: Ivan CHRISTINE Order Number: [id number] Reading MD: Joel Childs Interpretive Statements ATS/ERS [...] EDT by Joel Childs Site: WO ID: [id number] Name: RAJENDRA LUCERO Visit Date: 03/31/2020 Second ID: [id number] Referring Doctor: Ivan CHRISTINE Gravity Meter Observer: YASMIN Lee Age: 64 : 1955 Sex: Female Race: <Other> Height: 64.50 Inches Weight: 255.80 Lbs BSA: 2.18 Order IDs: [id number] Requested Test(s): Spirometry baseline only Post Test [...] radiology report. Six year risk is 1.4% [email or web address] 2. Nicotine Dependence, Former: Continue to abstain from smoking cigarettes. Maricruz Camp APRN.CNP January 25, 2025 10:22 AM documented in this encounterMercy Health [facility]03-26-2025 NoteHNO ID: [id number] Author: PHUC MARTINES, DO Service: ? Author [...] is currently diet controlled Hair thinning, 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 Feels she is coping okay. Has support from her children COPD oxygen dependent, stage 3., seeing Protection Analyst- recently had jaziel increased and feels this is helping her PAST MEDICAL HISTORY Diagnosis Date Chronic hypoxemic respiratory failure (HCC) COPD (chronic obstructive pulmonary disease) (HCC) 02/03/2010 Coronary artery disease No UT, CHF. No heart cath. Diverticulosis of colon [...] hours as needed for wheezing/shortness of breath. rihexddbuvz-sistyjkmh-xoycxufc (TRELEGY ELLIPTA) 200-62.5-25 mcg inhalation powder Inhale [...] - ICD9: 780.79, ICD10: (more content not included)...[facility]03-26-2025 History of Present illness Narrative* Phuc Martines [...] is currently diet controlled Hair thinning, 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 Feels she is coping okay. Has support from her children COPD oxygen dependent, stage 3., seeing Protection Analyst- recently had jaziel increased and feels this is helping her PAST MEDICAL HISTORY Diagnosis Date Chronic hypoxemic respiratory failure (HCC) COPD (chronic obstructive pulmonary disease) (HCC) 02/03/2010 Coronary artery disease No UT, CHF. No heart cath. Diverticulosis of colon [...] hours as needed for wheezing/shortness of breath. 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 Essential hypertension - ICD9: 401.9, ICD10: I10 - Controlled - Continue current medications - Recommend home blood pressure monitoring, to bring results to next visit - Encouraged sodium restriction, DASH or Mediterranean diet - Recommend regular aerobic exercise 9. Oxygen dependent - ICD9: V46.2, ICD10: Z99.81 See above 10. Morbid obesity with BMI of 45.0-49.9, adult ([facility]) - ICD9: 278.01, V85.42, ICD10: E66.01, Z68.42 Stable - Behavioral intervention and - Eat well program Phuc Martines DO Return if no improvement. Follow up with Phuc Martines DO. To ER if develops chest pain, shortness of breath. Discussed risks, benefits, alternatives, and potential side effects of medications. Patient/Guardian expressed understanding and agreed with the plan. See patient instructions. Phuc Martines DO [address] [place] [address] * Phuc Martines DO - 01/20/2025 8:48 [...] Martines DO documented in this encounterMercy Health [facility]03-26-2025 NoteHNO ID: [id number] Author: PHUC MARTINES DO Service: ? Author [...] of weight loss. BMI 45.32 kg/(m2) Phuc Martines, [facility]02-28-2025 Instructions* Patient Instructions* Rajendra Goodman APRN.CNP - 12/25/2024 11:59 AM EST Increase the dose of Trelegy. Remember to rinse after you use. If there is any concern with cost, we can try splitting Trelegy into 2 different inhalers. Monitor your oxygen levels with activity especially. Our last testing shows you require 6 liter of oxygen with activity. documented in this encounterMercy Health [facility]02-28-2025 History of Present illness Narrative* Rajendra Goodman APRN.CNP - 12/25/2024 11:30 AM EST Images from the original note were not included. Pulmonary Medicine Patients name: Rajendra Palumbo PCP: Phuc Martines DO CC: follow-up COPD HPI: Rajendra Lucero is a 69 year old female former 95-nhut-hlrb smoker, quitting in 2008 with PMH significant [...] disease) (HCC) 02/03/2010 Coronary artery disease No UT, CHF. No heart cath. Diverticulosis of colon [...] ELLIPTA 100-62.5-25 mcg inhalation powder Generic drug: kmomplywrnq-cnzsbankc-sbjtopce USE 1 INHALATION DAILY INSTRUCTED triamcinolone acetonide [...] prior chest CT examinations is needed. Reference: [employer]. Lung CT Screening Reporting and Data System (Lung-RADS). Available at: http://www.acr.org/Quality-Safety/Resources/LungRADS Power Electronics Engineer: PAT Transcribe Date/Time: Oct 19 2024 11:21A Dictated by : VIDAL PULLIAM MD This examination was interpreted and the report reviewed and electronically signed by: VIDAL PULLIAM MD on Oct 19 2024 11:28AM EST Results-Findings * * *Final Report* * * DATE OF EXAM: Oct 19 2024 10:09AM [facility] 0562 - CT LUNG SCREEN [facility] / PROCEDURE REASON: Former cigarette [...] without contrast. MQ: CTLCS_6 Patient characteristics: * Eynv-uu-Bmxdz: 1955; Age at exam: 69 years * Gender: Female * Lung Disease: Asymptomatic (no signs or symptoms of lung disease) * Number of Pack Years: 38 * Current smoker (=0) or Number of Years since Quit: 15 * Ordering provider and NPI: MARICRUZ CAMP [id number] * Interpreting radiologist and NPI: Nicole [id number] Exam acquisition parameters: * Exam Date: 10/19/2024 10:09 AM * Site: [facility] * * CT System Wax Pourer: Siemens * CT System Model: Sensation * [...] Stage 3 severe COPD by GOLD classification ([facility]) - ICD9: 496, ICD10: J44.9 (primary diagnosis) - progressively worsening exertional dyspnea. - increase Trelegy. Instructed to rinse mouth after use. - encouraged use of Duoneb or Albuterol as needed. 2. Chronic respiratory failure with hypoxia ([facility]) - ICD9: 518.83, 799.02, ICD10: J96.11 [...] - due for CT and follow-up in December/u 6 months Portions of this documentation were copied and pasted from previous office visit notes in order to provide a cohesive continuity of the history. The note has been reviewed and edited and updated as necessary. Rajendra Goodman APRN.CNP I spent a total of 27 minutes on the date of the service which included preparing to see the patient, ohjt-ah-kzzz patient care, completing clinical documentation, performing a medically appropriate examination, counseling and educating the patient/family/caregiver, and ordering medications, tests,or procedures. documented in this encounterMercy Health [facility]02-28-2025 NoteHNO ID: [id number] Author: RAJENDRA GOODMAN APRN.CNP Service: ? Author Type: Nurse Practitioner Type: Progress Notes Filed: 12/25/2024 12:29 Note Text: Pulmonary Medicine Patients name: Rajendra Palumbo PCP: Phuc Martines DO CC: follow-up COPD HPI: Rajendra Lucero is a 69 year old female former 23-udwb-lfgf smoker, quitting in 2008 with PMH significant [...] disease) (HCC) 02/03/2010 Coronary artery disease No UT, CHF. No heart cath. Diverticulosis of colon [...] ELLIPTA 100-62.5-25 mcg inhalation powder Generic drug: qymakhylans-ncolzbych-ugabfrzg USE 1 INHALATION DAILY INSTRUCTED triamcinolone acetonide [...] prior chest CT examinations is needed. Reference: [employer]. Lung CT Screening Reporting and Data System (Lung-RADS). Available at: http://www.acr.org/Quality-Safety/Resources/LungRADS Power Electronics Engineer: PAT Transcribe Date/Time: Oct 19 2024 11:21A Dictated by : VIDAL PULLIAM MD This examination was interpreted and the report reviewed and electronically signed by: VIDAL PULLIAM MD on Oct 19 2024 11:28AM EST Results-Findings * * *Final Report* * * DATE OF EXAM: Oct 19 2024 10:09AM [facility] 0562 - CT LUNG SCREEN WO [...] upper abdomen without contrast. (more content not included)...[facility]02-06-2025 History of Present illness Narrative* Jt Cheney [...] PATIENT PRESENTS WITH AN IMPLANTABLE OR ATTACHED DEPUTY SHERIFF LIEUTENANT: No RADIOLOGY DEPARTMENT: Mammography PERIPHERAL IV DATA: Not applicable SIGNED BY: Padma Bess December 03, 2024 11:01 AM documented in this encounterMercy Health [facility]02-06-2025 NoteHNO ID: [id number] Author: JT CHENEY Mammo Tech Service: ? Author Type: Gravity Meter Observer Type: Progress Notes Filed: 12/03/2024 11:01 Note [...] PATIENT PRESENTS WITH AN IMPLANTABLE OR ATTACHED DEPUTY SHERIFF LIEUTENANT: No RADIOLOGY DEPARTMENT: Mammography PERIPHERAL IV DATA: Not applicable SIGNED BY: Padma Bess December 03, 2024 11:01 [facility]01-31-2025 Telephone encounter Note* Telephone Encounter - Essence Ortiz RN - 11/27/2024 3:53 PM EST Patient calls and states that she needs refills of Trelegy sent to [facility]. Patient also states that she has appointment [...] 01/20/2025 Requested Prescriptions Pending Prescriptions Disp Refills axkclpwlchx-lcpjysibe-qeswlkbt (TRELEGY ELLIPTA) 100-62.5-25 mcg inhalation powder 3 Each 3 Sig: USE 1 INHALATION DAILY INSTRUCTED Essence Ortiz RN November 27, 2024 3:54 PM [facility]01-31-2025 Miscellaneous Notes* Telephone Encounter - Essence Ortiz RN - 11/27/2024 3:53 PM EST Patient calls and states that she needs refills of Trelegy sent to [facility]. Patient also states that she has appointment [...] 01/20/2025 Requested Prescriptions Pending Prescriptions Disp Refills okmqdttbqin-mxynhoqmw-loodiqvf (TRELEGY ELLIPTA) 100-62.5-25 mcg inhalation powder 3 Each 3 Sig: USE 1 INHALATION DAILY INSTRUCTED Essence Ortiz RN November 27, 2024 3:54 PM documented in this encounterMercy Health Kings Mills Hospital01-15-2025 NoteHNO ID: [id number] Author: JACOBO DONALD MA Service: ? Author Type: Real Estate Leasing Manager Type: Progress Notes Filed: 11/11/2024 15:47 Note [...] Follow-up Appointment Controlling Blood Pressure 12/25/2024 in [facility] with RAJENDRA GOODMAN 6 MTH F/U COPD 01/25/[address] [facility] with CT [facility] (I-STAT) - LDCT 01/25/2025 in [facility] with MARICRUZ CAMP - LDCT 02/17/2025 in [facility] with PHUC MARTINES - FOLLOW UP HCC related Navigation Signature: Jacobo Donald MA November 11, 2024 3:37 [facility]01-15-2025 History of Present illness Narrative* Jacobo Donald [...] Follow-up Appointment Controlling Blood Pressure 12/25/2024 in [facility] with CLICKRAJENDRA - 6 MTH F/U COPD 01/25/[address] [facility]AN [facility] with CT [facility] (I-STAT) - LDCT 01/25/2025 in [facility] with MARICRUZ CAMP - LDCT 02/17/2025 in [facility] with PHUC MARTINES - FOLLOW UP HCC related Navigation Signature: Jacobo Donald MA November 11, 2024 3:37 PM documented in this encounterMercy Health Kings Mills Hospital01-15-2025 NotePatient Outreach (NETNAV) RAJENDRA LUCERO ([id number]) 1955 F Date Time Provider Department 11/11/24 [...] Follow-up Appointment Controlling Blood Pressure 12/25/2024 in [facility] with RAJENDRA GOODMAN 6 MTH F/U COPD 01/25/[address] with CT [facility] (I-STAT) - LDCT 01/25/2025 in [facility] with MARICRUZ CAMP - LDCT 02/17/2025 in [facility] with PHUC MARTINES - FOLLOW UP HCC related Navigation Signature: Jacobo Ceron JESSICA Donald November 11, 2024 3:37 PM Allergies As of Date: 11/11/2024 Noted Allergy Reaction ALEVE (NAPROXEN) 05/31/2020 4 - Hives Comments: Hives, edema of hands within 1 hour of use Date Reviewed: 10/19/2024 Reviewed by: Maricruz Camp APRN.PRACTICE NURSE - Fully Assessed Reason for Visit: Population Health Navigation Outreach [3910] Cmt: ACO WORKBENCH MEEHAN PCSA Prescriptions as of 11/11/2024 - triamterene-hydroCHLOROthiazide (DYAZIDE) 37.5-25 mg per capsule Take 1 capsule by mouth once daily. - amLODIPine (NORVASC) 10 mg tablet Take 1 tablet by mouth once daily. - qjcgfpwyaiz-aaeenztrn-sqlafnxa (TRELEGY ELLIPTA) 100-62.5-25 mcg inhalation powder USE [...] ectasia (HCC) [I77.810] 03/13/2024 Encounter Status:Closed by JACOBO DONALD on 11/11/24[facility]01-09-2025 NoteHNO ID: [id number] Author: IRMA KEVIN HUC Service: ? Author Type: Mig Welder Type: Progress Notes Filed: 11/05/2024 14:22 Note Text: [facility] POP LUNG CANCER SCREENING FOLLOWUP ADVANCED: Diagnosis: Lung Nodule Recommendation: CT Scan Follow Up Due Date: 01/25/2025 All Follow Up Scheduled: Yes Pulmonary Follow Up Type: Lung Nodule Surveillance Patient should be added to the Lung Cancer Screening Followup Report: No Lung Cancer Screening Program Location: [facility] 11-05-2024 History of Present illness Narrative* Irma Kevin HUC - 11/05/2024 2:22 PM EST [facility] POP LUNG CANCER SCREENING FOLLOWUP ADVANCED: Diagnosis: Lung Nodule Recommendation: CT Scan Follow Up Due Date: 01/25/2025 All Follow Up Scheduled: Yes Pulmonary Follow Up Type: Lung Nodule Surveillance Patient should be added to the Lung Cancer Screening Followup Report: No Lung Cancer Screening Program Location: [facility] documented in this [facility]01-09-2025 NotePatient Outreach (PULMMN) RAJENDRA LUCERO ([id number]) 1955 F Date Time Provider Department 11/05/24 [...] Report: No Lung Cancer Screening Program Location: [facility] Allergies As of Date: 11/05/2024 Noted Allergy Reaction ALEVE (NAPROXEN) 05/31/2020 4 - Hives Comments: Hives, edema of hands within 1 hour of use Date Reviewed: 10/19/2024 Reviewed by: Maricruz Camp APRN.PRACTICE NURSE - Fully Assessed Prescriptions as of 11/05/2024 - triamterene-hydroCHLOROthiazide (DYAZIDE) 37.5-25 mg per capsule Take 1 capsule by mouth once daily. - amLODIPine (NORVASC) 10 mg tablet Take 1 tablet by mouth once daily. - ulgkkfywjun-nuzgymagl-tjxpbfaj (TRELEGY ELLIPTA) 100-62.5-25 mcg inhalation powder USE [...] 03/13/2024 Encounter Status:Closed by IRMA KEVIN on 11/05/24[facility] 10-21-2024 NotePatient Outreach (INTMMN) RAJENDRA LUCERO ([id number]) 1955 F Date Time Provider Department 10/21/24 PHUC MARTINES During your visit today, we recorded the following information about you: Allergies As of Date: 10/21/2024 Noted Allergy Reaction ALEVE (NAPROXEN) 05/31/2020 4 - Hives Comments: Hives, edema of hands within 1 hour of use Date Reviewed: 10/19/2024 Reviewed by: Maricruz Camp APRN.PRACTICE NURSE - Fully Assessed Visit Diagnosis:Encounter for screening mammogram for breast cancer [Z12.31] Order(s):[facility] SCREENING W ASHLEY [[id number]] Order #: [id number] FUTURE Prescriptions as of 10/26/2024 - triamterene-hydroCHLOROthiazide (DYAZIDE) 37.5-25 mg per capsule Take 1 capsule by mouth once daily. - amLODIPine (NORVASC) 10 mg tablet Take 1 tablet by mouth once daily. - ffnbllfkkhz-iuxeswtdu-mhiidftg (TRELEGY ELLIPTA) 100-62.5-25 mcg inhalation powder USE [...] ectasia (HCC) [I77.810] 03/13/2024 Encounter Status:Closed by RAJEEV, PRODUSER on 10/26/24[facility] 10-20-2024 NoteHNO ID: [id number] Author: MARICRUZ CAMP APRN.CNP Service: ? Author [...] Cancer Screening Program Location: [facility] 10-20-2024 History of Present illness Narrative* Maricruz Camp APRN.CNP - 10/20/2024 9:25 AM EST [facility] LUNG CANCER SCREENING FOLLOWUP ADVANCED: Diagnosis: Lung Nodule Recommendation: CT Scan Follow Up Due Date: 01/18/2025 All Follow Up Scheduled: No Pulmonary Follow Up Type: Lung Nodule Surveillance Patient should be added to the Lung Cancer Screening Followup Report: Yes Lung Cancer Screening Program Location: [facility] documented in this encounterMercy Health [facility]12-23-2024 Instructions* Patient Instructions* Maricruz Camp APRN.CNP - 10/19/2024 2:51 PM EST There are new inflammatory opacities. Recommend follow up CT lung in 3 months. Maricruz Camp APRN.CNP documented in this encounterMercy Health Kings Mills Hospital12-23-2024 NoteHNO ID: [id number] Author: MARICRUZ CAMP APRN.CNP Service: ? Author [...] which included preparing to see the patient, hqcp-dw-lqfi patient care, completing clinical documentation, performing a medically appropriate examination, counseling and educating the patient/family/caregiver, ordering medications, tests, or procedures, communicating with other HCPs (not separately reported), independently interpreting results (not separately reported), communicating results to the patient/family/caregiver, and care coordination (not separately reported). Maricruz Camp, JAKI.[facility] October 19, 2024 10:28 AM History [...] albuterol if feeling sick. Modified Medical Research Te-Moak Dyspnea Scale (MMRC) I am too breathless [...] disease) (HCC) 02/03/2010 Coronary artery disease No UT, CHF. No heart cath. Diverticulosis of colon (without mention of hemorrhag (more content not included)...[facility]12-23-2024 History of Present illness Narrative* Maricruz Camp APRPradeepPRACTICE NURSE - 10/19/2024 10:27 AM EST Images from [...] which included preparing to see the patient, yuux-fl-zulc patient care, completing clinical documentation, performing a medically appropriate examination, counseling and educating the patient/family/caregiver, ordering medications, tests, or pr ocedures, communicating with other HCPs (not separately reported), independently interpreting results (not separately reported), communicating results to the patient/family/caregiver, and care coordination (not separately reported). Maricruz Camp APRN.[facility] October 19, 2024 10:28 AM History [...] albuterol if feeling sick. Modified Medical Research Te-Moak Dyspnea Scale (MMRC) I am too breathless [...] disease) (HCC) 02/03/2010 Coronary artery disease No UT, CHF. No heart cath. Diverticulosis of colon [...] DATE OF EXAM: Oct 08 2023 1:24PM [facility] - CT LUNG SCREEN [facility] / PROCEDURE REASON: Former cigarette [...] without contrast. MQ: [id number] Patient characteristics: * Fkwy-nd-Rmbzu: 1955; Age at exam: 68 years * Gender: Female * Lung Disease: Asymptomatic (no signs or symptoms of lung disease) * Number of Pack Years: 38 * Current smoker (=0) or Number of Years since Quit: 14 * Ordering provider and NPI: MARICRUZ CAMP [id number] * Interpreting radiologist and NPI: Nicole [id number] Exam acquisition parameters: * Exam Date: 10/08/2023 1:24 PM * Site: [facility] * * CT System Wax Pourer: Siemens * CT System Model: Sensation * [...] ... Pulmonary Function Testing: SPIROMETRY BASELINE ONLY ([id number]) - ordered on 03/16/22 No textual results for order. documented in this encounterMercy Health Kings Mills Hospital12-23-2024 History of Present illness Narrative* Pito Galaviz RT(Tarun) - 10/19/2024 10:00 AM EST Radiology Service [...] PATIENT PRESENTS WITH AN IMPLANTABLE OR ATTACHED DEPUTY SHERIFF LIEUTENANT: No RADIOLOGY DEPARTMENT: CT; Exam(s) Completed: Lung Screening PERIPHERAL IV DATA: Not applicable SIGNED BY: RT Flower(Tarun) October 19, 2024 12:24 PM documented in this encounterMercy Health Kings Mills Hospital12-23-2024 NoteHNO ID: [id number] Author: PITO GALAVIZ RT(R) Service: ? Author Type: Gravity Meter Observer Type: Progress Notes Filed: 10/19/2024 12:24 Note [...] PATIENT PRESENTS WITH AN IMPLANTABLE OR ATTACHED DEPUTY SHERIFF LIEUTENANT: No RADIOLOGY DEPARTMENT: CT; Exam(s) Completed: Lung Screening PERIPHERAL IV DATA: Not applicable SIGNED BY: RT Flower(Tarun) October 19, 2024 12:24 [facility]09-20-2024 [...] 1 capsule by mouth once daily. Vero Locktet LPN July 17, 2024 2:19 PM [facility]09-20-2024 Miscellaneous Notes* Telephone Encounter - Vero [...] 2:19 PM documented in this encounterMercy Health Kings Mills Hospital08-30-2024 History of Present illness Narrative* Diana Gonzalez MD - 06/26/2024 11:45 AM EDT Images from the original note were not included. . [facility] Note Patient name: Rajendra Lucero PCP: Phuc Martines DO CC: Follow-up COPD HPI: Rajendra Lucero 68 year old female former 74-cdwo-bjyq smoker, quitting in 2008 with PMH significant [...] DATE OF EXAM: Oct 08 2023 1:24PM [facility] - CT LUNG SCREEN WO [...] No date: Coronary artery disease Comment: No UT, CHF. No heart cath. No date: Diverticulosis [...] Take 1 tablet by mouth once daily. tqtdabpfnet-rdibmovor-bevjwrwj (TRELEGY ELLIPTA) 100-62.5-25 mcg inhalation powder USE [...] mode ambulation 3. Former cigarette smoker -Former 22-cgwo-dmew smoker with sequelae of emphysema -Continued abstinence -Participating in lung cancer screening program with CT due this September 4. Morbid obesity -BMI 43 -Weight loss advised 5. Lung nodule -Right upper lobe nodule stable since 2017 -No further surveillance imaging required Diana Gonzalez MD [facility] documented in this encounterMercy Health Kings [facility] Hospital06-30-2024 History of Present illness Narrative* Damon Eugene APRN.PRACTICE NURSE - 04/26/2024 11:12 AM EDT Images from the original note were not included. Subjective Patient came in with complaints of possible wound infection on the right calf. Patient says she fell 2 weeks ago. Patient says she has been treating at home with antibiotic ointment. Patient denies any fever chills nausea vomiting. The history is provided by the patient. No multi disciplined language analyst was used. Review of Systems Constitutional: Negative. [...] disease) (HCC) 02/03/2010 Coronary artery disease No UT, CHF. No heart cath. Diverticulosis of colon [...] Take 1 tablet by mouth once daily. swmjkijlnpx-ksxdzjqcf-rqlbgzmr (TRELEGY ELLIPTA) 100-62.5-25 mcg inhalation powder USE [...] was okay with this careplan. Damon Eugene APRN.PRACTICE NURSE documented in this encounterMercy Health Kings Mills Hospital06-05-2024 Telephone encounter Note * Telephone Encounter - Erica Mckenzie LPN - 04/01/2024 9:51 AM EDT Pt. informed. [facility]06-05-2024 Miscellaneous Notes* Telephone Encounter - Erica [...] asking for recommendation. If script sent, [facility]. Aileen Mcdonnell RN documented in this encounterMercy Health Kings Mills Hospital06-05-2024 Telephone encounter Note * Telephone Encounter - Phuc Martines DO - 04/01/2024 8:58 AM EDT Okay to wait on chest xray if symptoms continue to improve. If start to worsen again, then need forCXR rx for Diflucan sent in for her for vagina and thrush symptoms Phuc Martines DO [facility]06-03-2024 Telephone encounter Note* Telephone Encounter - [...] asking for recommendation. If script sent, WILL Rios. Aileen Mcdonnell, RN [facility]05-17-2024 History of Present illness Narrative* Phuc Martines, [...] disease) (HCC) 02/03/2010 Coronary artery disease No UT, CHF. No heart cath. Diverticulosis of colon [...] Take 1 tablet by mouth once daily. qfbsqkuexoo-fumierfwp-zsroxlok (TRELEGY ELLIPTA) 100-62.5-25 mcg inhalation powder USE [...] bronchitis with chronic obstructive pulmonary disease (COPD) ([facility]) ([facility]) - ICD9: 491.22, ICD10: J44.0, J20.9 (primary diagnosis) Start on rx as below Continue inhalers and IS use F/u with CXR if not improving as well as with museum registrar - DOXYCYCLINE HYCLATE 100 MG TABLET - AMOXICILLIN 875 MG-POTASSIUM CLAVULANATE 125 MG TABLET - PREDNISONE 10 MG TABLET - XR CHEST 2V FRONTAL/LAT 2. Chronic obstructive pulmonary disease, unspecified COPD type ([facility]) - ICD9: 496, ICD10: J44.9 Start on rx as below Continue inhalers and IS use F/u with CXR if not improving as well as with museum registrar - DOXYCYCLINE HYCLATE 100 MG TABLET - AMOXICILLIN 875 MG-POTASSIUM CLAVULANATE 125 MG TABLET - PREDNISONE 10 MG TABLET - XR CHEST 2V FRONTAL/LAT 3. Acute otitis media, left - ICD9: 382.9, ICD10: H66.92 Start on rx as below Continue inhalers and IS use F/u with CXR if not improving as well as with museum registrar - AMOXICILLIN 875 MG-POTASSIUM CLAVULANATE 125 MG [...] Stage 3 severe COPD by GOLD classification ([facility]) - ICD9: 496, ICD10: J44.9 See [...] plan. See patient instructions. Phuc Martines DO [address] [place] [address] documented in this encounterMercy Health Kings Mills Hospital04-17-2024 Miscellaneous Notes* Telephone Encounter - Yuli [...] Denton MA. documented in this encounterMercy Health Kings Mills Hospital04-03-2024 Instructions* Patient Instructions* Srikanth Estrada APRN.CNP [...] TOPICAL OINTMENT documented in this encounterMercy Health Kings Mills Hospital04-03-2024 History of Present illness Narrative* Srikanth [...] disease) (HCC) 02/03/2010 Coronary artery disease No UT, CHF. No heart cath. Diverticulosis of colon [...] BONY WISDOM TEETH ALLERGIES Aleve [Naproxen] MEDICATIONS gldsjihjqca-xoolhwtkf-sthtxjhv (TRELEGY ELLIPTA) 100-62.5-25 mcg inhalation powder USE [...] MUPIROCIN 2 % TOPICAL OINTMENT Srikanth Estrada APRN.PRACTICE NURSE documented in this encounterMercy Health Kings Mills Hospital02-29-2024 History of Present illness Narrative* Diana Gonzalez MD - 12/26/2023 11:45 AM EST Images from the original note were not included. . [facility] Note Patient name: Rajendra Lucero PCP: Phuc [...] Since the change in her oxygen delivery, denilsons felt much better, more energy, less shortness [...] k/uL 1.10 Monocytes % % 8.2 Abs [place] <0.87 k/uL 0.61 Eosinophils % % 2.3 Abs Eosin <0.46 k/uL 0.17 Basophils % % 0.8 Abs Baso <0.11 k/uL 0.06 Immature Granulocytes % % 0.5 Abs Immature Gran <0.10 k/uL 0.04 NRBC /100 WBC 0.0 Absolute nRBC <0.01 k/uL <0.01 Diff Type Auto Imaging / Diagnostic Studies: DATE OF EXAM: Oct 08 2023 1:24PM [facility] - CT LUNG SCREEN WO [...] disease) (HCC) 02/03/2010 Coronary artery disease No UT, CHF. No heart cath. Diverticulosis of colon (without mention of hemorrhage) Essential hypertension, benign Fibrocystic breast Former smoker Internal hemorrhoids without mention of complication Leiomyoma of uterus, unspecified Obstructive sleep apnea Mild. Not prescribed CPAP, only 2L nasal O2. ALLERGIES Allergen Reactions Aleve [Naproxen] Hives Hives, edema of hands within 1 hour of use rzahckfrnew-tjuwjzxjd-urfsjzpg (TRELEGY ELLIPTA) 100-62.5-25 mcg inhalation powder USE [...] CT in September Diana Gonzalez MD [facility] documented in this encounterMercy Health Kings Mills Hospital02-27-2024 Miscellaneous Notes* Telephone Encounter - Basia [...] 24, 2023 9:56 AM documented in this encounterCleveland [id number] History of Present illness Narrative* Pito Galaviz [...] 08, 2023 2:12 PM documented in this encounterMercy Health Kings Mills Hospital11-21-2023 History of Present illness Narrative* Baltazar [...] 17, 2023 9:26 AM documented in this [facility]10-20-2023 Miscellaneous Notes* Telephone Encounter - Raya Whelan LPN - 08/16/2023 9:29 AM EDT [...] Martines DO documented in this encounterMercy Health Kings Mills Hospital10-18-2023 History of Present illness Narrative* Phuc [...] was in Aug 2022 and is seeing Protection Analyst and using her oxygen, appt with [...] disease) (HCC) 02/03/2010 Coronary artery disease No UT, CHF. No heart cath. Diverticulosis of colon [...] daily. Inhale via nebulizer over 5-15 minutes. vhmcztkoikt-hoylqauwa-vspxwpnx (TRELEGY ELLIPTA) 100-62.5-25 mcg inhalation powder USE [...] plan. See patient instructions. Phuc Martines DO [address] [place] [address] documented in this encounterMercy Health Kings Mills Hospital10-02-2023 Miscellaneous Notes* Telephone Encounter - Amanda Pearson LPN - 07/29/2023 11:18 AM EDT ABRAHAM-- NOV--08/14/23 LAST REFILL--08/01/22 90 AND 3 REFILLS LAST LABS--07/30/22 documented in this encounterMercy Health Kings Mills Hospital08-17-2023 Procedure note* Yasmin Ayala RPFT - [...] PM Comment: documented in this encounterMercy Health Kings Mills Hospital08-17-2023 History of Present illness Narrative* Hodan Christine PA-C - 06/13/2023 1:00 PM EDT Images from the original note were not included. Patient: Rajendra Lucero PCP: Phuc Martines DO CC: follow up HPI: Rajendra Lucero 67 year old morbidly obese female former 14-vtyw-wtlz smoker, quitting 1970with PMH significant for COPD, [...] disease) (HCC) 02/03/2010 Coronary artery disease No UT, CHF. No heart cath. Diverticulosis of colon [...] daily. Inhale via nebulizer over 5-15 minutes. qhudgbogkmn-nbwaobzco-fhbaigtp (TRELEGY ELLIPTA) 100-62.5-25 mcg inhalation powder USE [...] cm in diameter. This has fluid attenuation. Ultimate Hoops Referee (topogram) images: No additional findings. ASSESSMENT/PLAN: 1. [...] Christine PA-C documented in this encounterMercy Health Kings Mills Hospital08-17-2023 History of Present illness Narrative* Yasmin Ayala RPFT - 06/13/2023 12:58 PM EDT PULM FUNCTION SMARTBLOCK: Provider: Hodan Christine PA-C Assisting Tech: Yasmin Ayala RPFT Oximetry - Ambulation: 1 documented in this [facility]08-17-2023 Nurse Note* Lake Melvin LPN - 06/13/2023 12:53 PM EDT Intake information documented in the prior visit with YOAV López today. documented in this encounterMercy Health Kings Mills Hospital08-03-2023 Miscellaneous Notes* Telephone Encounter - Lory [...] be scheduled. Sara * Telephone Encounter - Lake Melvin LPN - 05/30/2023 11:58 AM EDT Spoke with patient. Will need updated oximetry and face to face with Dr. Gonzalez or Sara sent to [facility] for O2 recert. Lake Melvin LPN * Telephone Encounter - Patrizia Jolly [...] review and advise. Thank you. [place] # [phone] Patrizia Jolly LPN documented in this encounterMercy Health Kings Mills Hospital02-07-2023 Miscellaneous Notes* Telephone Encounter - Claudia [...] daily. Inhale via nebulizer over 5-15 minutes. cuegkapplbm-tqvkfgbse-ibymyjcf (TRELEGY ELLIPTA) 100-62.5-25 mcg inhalation powder 3 Each 3 Sig: USE 1 INHALATION DAILY INSTRUCTED RX INSTRUCTIONS: Patient aware RX will be sent to pharmacy. No need to notify patient. Gwendolyn Melendez Pss documented in this encounterMercy Health Kings Mills Hospital12-28-2022 Miscellaneous Notes* Telephone Encounter - Yuli [...] Britton Ma documented in this encounterMercy Health Kings Mills Hospital12-14-2022 Procedure note* YOAV López - 10/10/2022 [...] AM Comment: documented in this encounterMercy Health Kings Mills Hospital12-14-2022 History of Present illness Narrative* YOAV López - 10/10/2022 10:58 AM EST PULM FUNCTION SMARTBLOCK: Provider: Phuc Martines DO Assisting Tech: YOAV López Oximetry - Ambulation: 1 documented in this encounterMercy Health Kings Mills Hospital12-02-2022 History of Present illness Narrative* Vonnie [...] 1:09 PM documented in this encounterMercy Health Kings Mills Hospital12-02-2022 Instructions* Patient Instructions* Pratibha King APRN.CNP [...] are worsening. documented in this encounterMercy Health Kings Mills Hospital12-02-2022 History of Present illness Narrative* Pratibha [...] Diagnosis Date COPD (chronic obstructive pulmonary disease) ([facility]) 02/03/2010 Coronary artery disease No UT, CHF. No heart cath. Diverticulosis of colon [...] hours as needed for wheezing/shortness of breath. peeughnoqnf-tzkrrjlau-jzmsajjn (TRELEGY ELLIPTA) 100-62.5-25 mcg inhalation powder USE [...] King APRN.ELVIA documented in this encounterMercy Health Kings Mills Hospital11-28-2022 Miscellaneous Notes* Telephone Encounter - Phuc Martines DO - 09/24/2022 7:24 AM EST Paperwork states she needs to have ambulatory oxygen testing within 30 days. Please help her set upthese tests at [place] Phuc Martines DO * Telephone Encounter - Erica Mckenzie LPN - 09/14/2022 3:45 PM EST Information on your desk.. * Telephone Encounter - Phuc Martines DO - 09/12/2022 10:21 PM EST I don't have any of this information on my desk Phuc L Martines, DO * Telephone Encounter - Christy Galicia [...] Galicia LPN documented in this encounterMercy Health Kings Mills Hospital11-16-2022 Miscellaneous Notes* Letter - Mammography Coordinator - 09/12/2022 2:01 PM EST September 12, 2022 PID: [id number] Rajendra Lucero [address] [place] [address] Dear Ms. Lucero, We are pleased to [...] be [facility] as part of your permanent medical record and are available for your continuing care. Thank you for allowing us to help in meeting your health care needs. Sincerely, Dr. Jameson Interpreting Radiologist [facility] (Normal over 40) documented in this encounterMercy Health Kings Mills Hospital11-10-2022 Miscellaneous Notes* Telephone Encounter - Basia Victor RN - 09/06/2022 7:53 PM EST Pt called and is notified of providers results and instructions. Pt voices understanding. 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 We will repeat this test in 6 months to reassess. Please assist her to schedule this testing. Pratibha King APRN.CNP documented in this encounterMercy Health Kings Mills Hospital11-07-2022 History of Present illness Narrative* Bella [...] 1:41 PM documented in this encounterMercy Health Kings Mills Hospital11-04-2022 Miscellaneous Notes* Telephone Encounter - Kizzy [...] King APRN.CNP documented in this encounterMercy Health Kings Mills Hospital11-02-2022 History of Present illness Narrative* Pito Galaviz RT(R) - 08/29/2022 10:00 AM EDT [...] 3:39 PM documented in this encounterMercy Health Kings Mills Hospital10-07-2022 Miscellaneous Notes* Telephone Encounter - Betina Gallardo Ma - 08/03/2022 9:38 AM EDT Office faxed for medicare requirement yearly most recent OV note from 08/01/22 to [facility]. F#: [phone]. Betina Gallardo Ma documented in this encounterMer[facility]10-05-2022 History of Present illness Narrative* Phuc Ceron Martines, DO - 08/01/2022 11:51 AM EDT CC: Rajendra Lucero is a 66 year old female who presents to the office for follow up HPI: COPD, feels it is slowly stabilizing/improving compared to how she was feeling 6 months ago. Has had recent ECHO in the [address] chest was >15 months ago and is seeing Protection Analyst and using her oxygen, will be [...] 5.5 4.3 - 5.6 % Final Comment: [place] [employer] guidelines indicate that patients with HgbA1c in the range 5.7-6.4% are at increased risk for development of diabetes, and intervention by lifestyle modification may be beneficial. HgbA1c greater or equal to 6.5% is considered diagnostic of diabetes. 01/26/2022 6.1 (H) 4.3 - 5.6 % Final Comment: [place] [employer] guidelines indicate that patients with HgbA1c in the range 5.7-6.4% are at increased risk for development of diabetes, and intervention by lifestyle modification may be beneficial. HgbA1c greater or equal to 6.5% is considered diagnostic of diabetes. 04/28/2021 5.6 4.3 - 5.6 % Final Comment: [place] [employer] guidelines indicate that patients with HgbA1c in the range 5.7-6.4% are at increased risk for development of diabetes, and intervention by lifestyle modification may be beneficial. HgbA1c greater or equal to 6.5% is considered diagnostic of diabetes. 05/30/2020 5.6 4.3 - 5.6 % Final Comment: [place] [employer] guidelines indicate that patients with HgbA1c in the range 5.7-6.4% are at increased risk for development of diabetes, and intervention by lifestyle modification may be beneficial. HgbA1c greater or equal to 6.5% is considered diagnostic of diabetes. 05/15/2019 5.7 (H) 4.3 - 5.6 % Final Comment: [place] [employer] guidelines indicate that patients with [...] disease) (HCC) 02/03/2010 Coronary artery disease No UT, CHF. No heart cath. Diverticulosis of colon [...] hours as needed for wheezing/shortness of breath. wqmkdgudwym-lmofbgili-lrwnlkpz (TRELEGY ELLIPTA) 100-62.5-25 mcg inhalation powder USE [...] oximetry testing as ordered, follow up with museum registrar as well. Needs to continue oxygen at [...] See patient instructions. Phuc Martines DO [address] [place] [address] documented in this encounterMercy [facility]10-05-2022 Instructions* Patient Instructions* Phuc Martines DO - 08/01/2022 11:00 AM EDT Vitamin B12 1,000 mcg a day in the morning supplement documented in this encounterMercy Health [facility]09-08-2022 Miscellaneous Notes* Telephone Encounter - Lake Melvin LPN - 07/05/2022 8:45 AM EDT Order faxed. Lake Melvin LPN * Telephone Encounter - Lake Melvin LPN - 07/04/2022 2:21 PM EDT [facility] is requesting order for POC that goes to 6L as discussed at [facility] on 06/22. Patient has transitioned to Medicare as of 06/28. Lake Melvin LPN documented in this encounterMercy Health [facility] Hospital06-02-2022 Miscellaneous Notes* Telephone Encounter - Lake Melvin LPN - 03/29/2022 3:00 PM EDT [facility] called, they did receive order and it is in the que to schedule. Lake Melvin LPN documented in this encounterMercy Health [facility] Hospital05-20-2022 Procedure note* Yasmin Ayala RRT - [...] AM Comment: documented in this encounterMercy Health Kings Mills Hospital05-20-2022 History of Present illness Narrative* Yasmin Ayala RRT - 03/16/2022 9:33 AM EDT PULM FUNCTION SMARTBLOCK: Provider: Hodan Christine PA-C Assisting Tech: Yasmin Ayala RRT Spirometry: 1 Oximetry - Ambulation: 1 System: [id number] documented in this encounterMercy Health Kings [facility] Hospital05-20-2022 History of Present illness Narrative* Hodan Christine PA-C - 03/16/2022 9:24 AM EDT [facility] [place], 03/16/2022: Name: Rajendra Lucero : 1955 The [...] edema, orthopnea. GI: No heartburn, dysphagia, diarrhea. Uro/TICKET COLLECTOR OR USHER: No dysuria, hesitancy, nocturia. Musculoskeletal: No pain. [...] Christine PA-C documented in this encounterMercy Health Kings Mills Hospital05-20-2022 Nurse Note* Lake Melvin LPN - 03/16/2022 9:06 AM EDT Intake information documented in the prior visit with Yasmin Ayala RRT today. documented in this encounterMercy Health [facility]05-11-2022 Miscellaneous Notes* Telephone Encounter - Karla Jacob LPN - 03/07/2022 11:36 AM EDT Patient phones requesting refills as follows: Pending Prescriptions Disp Refills AMLODIPINE 5 MG TABLET 90 tablet 1 Sig: Take 1 tablet by mouth once daily. LALY: No ABRAHAM-10/31/21 Labs-01/26/22 NOV-05/01/22 med filled 11/07/21 Please review and advise. Karla Jacob LPN documented in this encounterMercy Health [facility] Hospital04-15-2022 History of Present illness Narrative* Hodan Christine PA-C - 02/09/2022 1:00 PM EDT [facility] [place], 02/09/2022: Name: Rajendra Lucero : 1955 The [...] Christine PA-C documented in this encounterMercy Health [facility] Hospital04-05-2022 History of Present illness Narrative* Phuc [...] Diagnosis Date COPD (chronic obstructive pulmonary disease) ([facility]) 02/03/2010 Coronary artery disease No UT, CHF. No heart cath. Diverticulosis of colon [...] WISDOM TEETH Current Outpatient Medications Medication Sig lkndujwcrsu-fscfiwzer-wyxiriyj (TRELEGY ELLIPTA) 100-62.5-25 mcg inhalation powder USE [...] See patient instructions. Phuc Martines DO [address] [place] [address] documented in this encounterMercy Health [facility] Hospital03-16-2021 History of Present illness Narrative* Vonnie [...] 11:09 AM documented in this encounterMercy Health [facility] Hospital07-23-2019 History of Past illness Narrative* Problem Noted Date Resolved Date Routine physical examination 05/19/2019 Screening for colon cancer 08/27/201810/13 Overview: Added automatically from request for surgery [id number] Acute bronchitis with chroni c obstructive pulmonary [...] encounter (statuses as of 01/30/2022) [facility] History of Past illness Narrative* Problem Noted Date Resolved Date Routine physical examination 05/19/2019 Screening for colon cancer 08/27/201810/13 Overview: Added automatically from request for surgery [id number] Acute bronchitis with chroni c obstructive pulmonary [...] encounter (statuses as of 02/09/2022) [facility] History of Past illness Narrative* Problem Noted Date Resolved Date Routine physical examination 05/19/2019 Screening for colon cancer 08/27/201810/13 Overview: Added automatically from request for surgery [id number] Acute bronchitis with chroni c obstructive pulmonary [...] encounter (statuses as of 03/07/2022) [facility] of Past illness Narrative* Problem Noted Date Resolved Date Routine physical examination 05/19/2019 Screening for colon cancer 08/27/201810/13 Overview: Added automatically from request for surgery [id number] Acute bronchitis with chroni c obstructive pulmonary [...] encounter (statuses as of 03/16/2022) [facility] of Past illness Narrative* Problem Noted Date Resolved Date Routine physical examination 05/19/2019 Screening for colon cancer 08/27/201810/13 Overview: Added automatically from request for surgery [id number] Acute bronchitis with chroni c obstructive pulmonary [...] encounter (statuses as of 03/16/2022) [facility] of Past illness Narrative* Problem Noted Date Resolved Date Routine physical examination 05/19/2019 Screening for colon cancer 08/27/201810/13 Overview: Added automatically from request for surgery [id number] Acute bronchitis with chroni c obstructive pulmonary [...] encounter (statuses as of 03/29/2022) [facility] of Past illness Narrative* Problem Noted Date Resolved Date Routine physical examination 05/19/2019 Screening for colon cancer 08/27/201810/13 Overview: Added automatically from request for surgery [id number] Acute bronchitis with chroni c obstructive pulmonary [...] encounter (statuses as of 07/04/2022) [facility] of Past illness Narrative* Problem Noted Date Resolved Date Routine physical examination 05/19/2019 Screening for colon cancer 08/27/201810/13 Overview: Added automatically from request for surgery [id number] Acute bronchitis with chroni c obstructive pulmonary [...] encounter (statuses as of 07/05/2022) [facility] of [facility] illness Narrative* Problem Noted Date Resolved Date Routine physical examination 05/19/2019 Screening for colon cancer 08/27/201810/13 Overview: Added automatically from request for surgery [id number] Acute bronchitis with chroni c obstructive pulmonary [...] encounter (statuses as of 08/01/2022) [facility] illness Narrative* Problem Noted Date Resolved Date Routine physical examination 05/19/2019 Screening for colon cancer 08/27/201810/13 Overview: Added automatically from request for surgery [id number] Acute bronchitis with chroni c obstructive pulmonary [...] encounter (statuses as of 08/03/2022) [facility] Narrative* Problem Noted Date Resolved Date Routine physical examination 05/19/2019 Screening for colon cancer 08/27/201810/13 Overview: Added automatically from request for surgery [id number] Acute bronchitis with chroni c obstructive pulmonary [...] encounter (statuses as of 08/31/2022) [facility] illness Narrative* Problem Noted Date Resolved Date Routine physical examination 05/19/2019 Screening for colon cancer 08/27/201810/13 Overview: Added automatically from request for surgery [id number] Acute bronchitis with chroni c obstructive pulmonary [...] encounter (statuses as of 09/10/2022) [facility] illness Narrative* Problem Noted Date Resolved Date Routine physical examination 05/19/2019 Screening for colon cancer 08/27/201810/13 Overview: Added automatically from request for surgery [id number] Acute bronchitis with chroni c obstructive pulmonary [...] encounter (statuses as of 09/14/2022) [facility] Narrative* Problem Noted Date Resolved Date Routine physical examination 05/19/2019 Screening for colon cancer 08/27/201810/13 Overview: Added automatically from request for surgery [id number] Acute bronchitis with chroni c obstructive pulmonary [...] encounter (statuses as of 09/28/2022) [facility] Narrative* Problem Noted Date Resolved Date Routine physical examination 05/19/2019 Screening for colon cancer 08/27/201810/13 Overview: Added automatically from request for surgery [id number] Acute bronchitis with chroni c obstructive pulmonary [...] encounter (statuses as of 10/10/2022) [facility] Narrative* Problem Noted Date Resolved Date Routine physical examination 05/19/2019 Screening for colon cancer 08/27/201810/13 Overview: Added automatically from request for surgery [id number] Acute bronchitis with chroni c obstructive pulmonary [...] encounter (statuses as of 10/19/2022) [facility] Narrative* Problem Noted Date Resolved Date Routine physical examination 05/19/2019 Screening for colon cancer 08/27/201810/13 Overview: Added automatically from request for surgery [id number] Acute bronchitis with chroni c obstructive pulmonary [...] encounter (statuses as of 10/30/2022) [facility] Narrative* Problem Noted Date Resolved Date Routine physical examination 05/19/2019 Screening for colon cancer 08/27/201810/13 Overview: Added automatically from request for surgery [id number] Acute bronchitis with chroni c obstructive pulmonary [...] encounter (statuses as of 12/05/2022) [facility] Narrative* Problem Noted Date Diagnosed Date Resolved Date Routine physical examination 05/19/2019 10/13/2019 Screening for colon cancer 08/27/2018 1 12/14/2018 Overview: Added automatically from request for surgery [id number] Acute bronchitis with chroni c obstructive pulmonary [...] encounter (statuses as of 05/30/2023) [facility] Narrative* Problem Noted Date Diagnosed Date Resolved Date Routine physical examination 05/19/2019 10/13/2019 Screening for colon cancer 08/27/2018 1 12/14/2018 Overview: Added automatically from request for surgery [id number] Acute bronchitis with chroni c obstructive pulmonary [...] encounter (statuses as of 06/13/2023) [facility] Narrative* Problem Noted Date Diagnosed Date Resolved Date Routine physical examination 05/19/2019 10/13/2019 Screening for colon cancer 08/27/2018 1 12/14/2018 Overview: Added automatically from request for surgery [id number] Acute bronchitis with chroni c obstructive pulmonary [...] encounter (statuses as of 06/13/2023) [facility] Narrative* Problem Noted Date Diagnosed Date Resolved Date Routine physical examination 05/19/2019 10/13/2019 Screening for colon cancer 08/27/2018 1 12/14/2018 Overview: Added automatically from request for surgery [id number] Acute bronchitis with chroni c obstructive pulmonary [...] encounter (statuses as of 07/30/2023) [facility] Narrative* Problem Noted Date Diagnosed Date Resolved Date Routine physical examination 05/19/2019 10/13/2019 Screening for colon cancer 08/27/2018 1 12/14/2018 Overview: Added automatically from request for surgery [id number] Acute bronchitis with chroni c obstructive pulmonary [...] encounter (statuses as of 08/14/2023) [facility] Narrative* Problem Noted Date Diagnosed Date Resolved Date Routine physical examination 05/19/2019 10/13/2019 Screening for colon cancer 08/27/2018 1 12/14/2018 Overview: Added automatically from request for surgery [id number] Acute bronchitis with chroni c obstructive pulmonary [...] encounter (statuses as of 08/16/2023) [facility] Narrative* Problem Noted Date Diagnosed Date Resolved Date Routine physical examination 05/19/2019 10/13/2019 Screening for colon cancer 08/27/2018 1 12/14/2018 Overview: Added automatically from request for surgery [id number] Acute bronchitis with chroni c obstructive pulmonary [...] encounter (statuses as of 2023) [facility] Narrative* Problem Noted Date Diagnosed Date Resolved Date Routine physical examination 05/19/2019 10/13/2019 Screening for colon cancer 08/27/2018 1 12/14/2018 Overview: Added automatically from request for surgery [id number] Acute bronchitis with chroni c obstructive pulmonary [...] encounter (statuses as of 2023) [facility] Narrative* Problem Noted Date Diagnosed Date Resolved Date Routine physical examination 05/19/2019 10/13/2019 Screening for colon cancer 08/27/2018 1 12/14/2018 Overview: Added automatically from request for surgery [id number] Acute bronchitis with chroni c obstructive pulmonary [...] encounter (statuses as of 2023) [facility] Narrative* Problem Noted Date Diagnosed Date Resolved Date Routine physical examination 05/19/2019 10/13/2019 Screening for colon cancer 08/27/2018 1 12/14/2018 Overview: Added automatically from request for surgery [id number] Acute bronchitis with chroni c obstructive pulmonary [...] encounter (statuses as of 2023) [facility] Narrative* Problem Noted Date Diagnosed Date Resolved Date Routine physical examination 05/19/2019 10/13/2019 Screening for colon cancer 08/27/2018 1 12/14/2018 Overview: Added automatically from request for surgery [id number] Acute bronchitis with chroni c obstructive pulmonary [...] encounter (statuses as of 09/05/2023) [facility] Narrative* Problem Noted Date Diagnosed Date Resolved Date Routine physical examination 05/19/2019 10/13/2019 Screening for colon cancer 08/27/2018 1 12/14/2018 Overview: Added automatically from request for surgery [id number] Acute bronchitis with chroni c obstructive pulmonary [...] encounter (statuses as of 09/18/2023) [facility] Narrative* Problem Noted Date Diagnosed Date Resolved Date Routine physical examination 05/19/2019 10/13/2019 Screening for colon cancer 08/27/2018 1 12/14/2018 Overview: Added automatically from request for surgery [id number] Acute bronchitis with chroni c obstructive pulmonary disease (COPD) ([facility]) 11/06/2017 9 Well adult exam 11/09/2016 [...] 45 mmHg and 73.2% above 50 mmHg. Joey-Draby/Periodic Breathing was not present. PAIN FLANK 08/13/2008 10/13/2019 OBESITY 05/04/2006 10/13/2019 PLANTAR FASCIITIS 05/04/2006 08/19/2006 Essential hypertension, benign 07/07/2008 Tobacco use disorder 011 documented as of this encounter (statuses as of 10/09/2023) [facility] Narrative* Problem Noted Date Diagnosed Date Resolved Date Routine physical examination 05/19/2019 10/13/2019 Screening for colon cancer 08/27/2018 1 12/14/2018 Overview: Added automatically from request for surgery [id number] Acute bronchitis with chroni c obstructive pulmonary disease (COPD) ([facility]) 11/06/2017 9 Well adult exam 11/09/2016 [...] encounter (statuses as of 12/25/2023) [facility] Narrative* Problem Noted Date Diagnosed Date Resolved Date Routine physical examination 05/19/2019 10/13/2019 Screening for colon cancer 08/27/2018 1 12/14/2018 Overview: Added automatically from request for surgery [id number] Acute bronchitis with chroni c obstructive pulmonary [...] encounter (statuses as of 12/27/2023) [facility] Narrative* Problem Noted Date Diagnosed Date Resolved Date Routine physical examination 05/19/2019 10/13/2019 Screening for colon cancer 08/27/2018 1 12/14/2018 Overview: Added automatically from request for surgery [id number] Acute bronchitis with chroni c obstructive pulmonary disease (COPD) ([facility]) 11/06/2017 9 Well adult exam 11/09/2016 [...] encounter (statuses as of 01/30/2024) [facility] Narrative* Problem Noted Date Diagnosed Date Resolved Date Routine physical examination 05/19/2019 10/13/2019 Screening for colon cancer 08/27/2018 1 12/14/2018 Overview: Added automatically from request for surgery [id number] Acute bronchitis with chroni c obstructive pulmonary disease (COPD) ([facility]) 11/06/2017 12/17/201 9 Well adult exam 11/09/2016 10/13/2019 COPD [...] encounter (statuses as of 02/13/2024) [facility] HospitalConsult note Author Milena Rodas [facility] Note Date/Time February 23, 2025 2:1 2pm [facility] Medical Records Department [address] [place] [address] Counseling Note - Pharmacy 02/23/25 1410 MR#: [id number] Acct: [id number] Name: GEEsperanzaRAJENDRA Rep #:[id number] : 1955 69 From: Milena Rodas PCP: Dr. Phuc Martines, DO Status:AD M IN Y Location: [place] [id number]acy Service has performed discharge medication [...] of their dischargemedications. Patient counseled by pharmacy account director, Pete. Medications at Discharge Home Medications Oxygen, [...] sodium chloride 0.65 % nasal spray aerosol ([place] Saline) 1 spray intranasal BID PRN dry [...] signed by Milena Rodas> Date _ Milena Rodas Cosigner Signature (if applicable): Date CC: ~ Signed [facility] Work Phone: Consult note Author Milena Rodas [facility] Note Date/Time May 17, 2025 11:4 3am [facility] Medical Records Department [address] [place] [address] Counseling Note - Pharmacy 05/17/25 1140 MR#: [id number] Acct: [id number] Name: RAJENDRA LUCERO Rep #:[id number] : 1955 69 From: Milena Rodas PCP: Dr. Phuc Martines, DO Status:AD IN Location: [place] [id number] [place] Med Reconciliation Pharmacy Service has performed discharge medication reconciliation for this patient. The patient's discharge medication list was reviewed for discrepancies and discrepancies were resolved. Medications at Discharge Home Medications Oxygen, Home [Home Oxygen] 2 - 4 lpm QHS sob/copd 11/13/17 albuterol sulfate 90 mcg/actuation breath activated powder inhaler 2 inh inhalation Q6H PRN shortness of breath 02/19/25 fluticasone fur. 200 mcg-umeclid 62.5 mcg-vilant 25 mcg inhalat.powder (Trelegy Ellipta) 1 ea inhalation DAILY sob 02/19/25 ipratropium 0.5 mg-albuterol 3 mg (2.5 mg base)/3 mL nebulization soln 3 ml inhalation Q6H PRN shortness of breath 02/19/25 multivitamin (Daily Multi-Vitamin tablet) 1 tab PO DAILY supplement 02/19/25 sodium chloride 0.65 % nasal spray aerosol ([place] Saline) 1 spray intranasal BID PRN dry nasal passages 02/19/25 ascorbic acid (vitamin C) 500 mg capsule 500 mg PO DAILY PRN supplement 03/30/25 cinnamon bark 500 mg capsule (Cinnamon) 500 mg PO QDAY supplement 03/30/25 mecobalamin (vitamin B12) 1,000 mcg chewable tablet 1,000 mcg PO QDAY wkvwcickdr86/03/25 nystatin 100,000 unit/gram topical cream 1 applic topical BID skin rash 04/23/25 apixaban 5 mg tablet (Eliquis) 5 mg PO BID blood thinner #180 tabs 05/07/25 atorvastatin 40 mg tablet 40 mg PO QHS cholesterol #90 tabs 05/07/25 dapagliflozin propanediol 10 mg tablet (Farxiga) 10 mg PO QAM diabetes #30 tabs 05/07/25 diltiazem HCl 180 mg capsule,extended release 24 hr 180 mg PO Q12 heart rate #180 caps 05/07/25 metoprolol tartrate 50 mg tablet 50 mg PO BID blood pressure #180 tabs 05/07/25 potassium chloride 20 mEq tablet,extended release(part/cryst) (Klor-Con M) 20 meq PO BID supplement #180 tabs 05/07/25 amiodarone 200 mg tablet 200 mg PO DAILY Afib 05/13/25 furosemide 40 mg tablet 60 mg (1.5 x 40 mg) PO BID diuretic #180 tabs 05/17/25 guaifenesin 1,200 mg tablet, extended release 12 hr (Mucus Relief ER) 1,200 mg PO BID cough 7 days #0 tabs 05/17/25 prednisone 10 mg tablet 10 mg PO DAILY #30 tabs 05/17/25 05/17/25 1143 <Electronically signed by Milena Rodas> Date _ Milena Rodas Cosigner Signature (if applicable): Date CC: ~ Signed [facility] Work Phone: Discharge summary Author George Polanco [facility] Note Date/Time May 17, 2025 11:1 7am [facility] Medical Records Department [address] [place] [address] Discharge Summary 05/17/25 1113 MR#: [id number] Acct: [id number] Name: RAJENDRA LUCERO Rep #:[id number] : 1955 69 From: George Willis PCP: Dr. Phuc Martines DO Status:AD M IN [facility] Date of Admission: 05/13/25 Date of Discharge: 05/17/25 Primary Care Physician: Dr. Phuc Martines DO Reason For Visit: ACUTE HYPERCAPNIC RESP FAILURE, MILD HFPEF EXAC Diagnosis Discharge Diagnosis (1) Acute and chronic respiratory failure with hypercapnia: Status: Chronic Code(s): J96.22 - Acute and chronic respiratory failure with hypercapnia (2) Acute on chronic heart failure with preserved ejection fraction (HFpEF): Status: Acute Code(s): I50.33 - Acute on chronic diastolic (congestive) heart failure Plan Patient is a 69-year-old female who presented to [facility] ED on 05/13/2025 with worsening shortness of breath and lower extremity swelling. 1. Acute on chronic hypercapnic respiratory failure most likely due to COPD andheart failure exacerbation ? Admit under inpatient status to PCU. Suspect multifactorial due to acute on chronic HFpEF and untreated ROXY as below. ABG on admit with pH 7.36 but pCO2 92. Patient on 3.5 L at rest and 6 L on exertion at baseline. CTA chest showedno PE and no pleural effusions with mild vascular congestion, severe centrilobular emphysematous changes. Patient improved on the BiPAP, did not require intubation. 05/14: Still on high flow oxygen, 10 L, respiratory rate 20/min. Continue BiPAP during naps and at night and as needed for respiratory fatigue. Patient is being managed on scheduled bronchodilator, IV Solu-Medrol, Mucinex, incentive spirometry and Pep. Atypical chest pain described as pulmonary related, 2 serial troponins are negative. ACS ruled out. Respiratory panel negative. 05/15: Patient is doing better than yesterday with better ventilation and oxygenation. 05/16: Patient is gradually improving but she still needs 4 to 6 L of high flow oxygen therefore probably 1 more day. digital project manager for discharge planning. 05/17: She is on baseline of oxygen 4 to 6 L at home. She has been discharged torehab. Tapering dose of prednisone given. She has inhaler/DuoNebnebulization, Mucinex. Continue incentive spirometry and PEP for 1 week 2. Acute on chronic HFpEF with moderate pulmonary hypertension, mild valvular heart disease ? Mild vascular congestion on chest imaging and +1-2 lower extremity pitting edema on exam noted. BNP 2554, though notably BNP was 2566 on 05/07. However, patient was on Lasix 60 mg twice daily without much improvement. IV Lasix 40 mgtwice daily for now, monitor daily BMP and urine output. Continue home dapagliflozin. Recent echo 02/19/2025 Interpretation Summary Borderline LV systolic function. Estimated LVEF 45-50%. Moderate global right ventricular systolic dysfunction. There is mild biatrial dilatation. Moderate (2+) eccentric mitral valve insufficiency. Mild tricuspid valve insufficiency. Right ventricular systolic pressure estimated to be 53 mmHg. The study was technically difficult. 05/15 continue diuresis. 05/16: Patient still has significant leg swelling 2+ edema therefore Nina wrap bandage 05/17: Furosemide 40 mg twice daily home dose increased to 60 mg p.o. twice daily. Continue Nina wrap bandage. 3. Class III obesity with ROXY not on home PAP therapy ? BMI 45 on admit. Complicates hospital course and care. Patient reports having sleep study done in the past but did not think she could tolerate PAP therapy and has never had a PAP machine at home. Continue PAP therapy at night and with naps while inpatient as noted above. digital project manager to help, set up sleep study shortly after discharge. 05/15 on BiPAP. 05/17 follow-up in pulmonary clinic. 4. Paroxysmal A-fib/flutter on Eliquis, hypertension, hyperlipidemia, history of VTE ? Follows with outpatient cardiology. In rate controlled atrial flutter with rate in the 100s on admit. EKG showed atrial flutter with rate 106 bpm. Normotensive to hypertensive in the ED. Continue home Eliquis, amiodarone, diltiazem, Lopressor and atorvastatin. 5. Alcohol abuse ? Patient reports drinking 2 alcoholic drinks daily and on chart review, she reported 2 drinks a day during recent admission at the end of March. However, daughter noted that there are days where patient will drink 4-5 alcoholic drinks. on CIOR protocol without medications for now. Monitor. 6. History of tobacco abuse ? Encouraged continued cessation. 7. Solitary pulmonary nodules: Unchanged solid nodule in the right upper lobe measuring 1.2 x 0.4 cm, RUL measuring 3 mm. Also shows extensive centrilobular and paraseptal emphysema. Biapical scarring. Linear consolidation at posteriorlung bases, right greater than left DVT prophylaxis: Not indicated, on Eliquis 5 mg twice daily. CODE STATUS: Full code, verified Discharge medication reconciliation done. Discharge follow-up instructions completed. Discharge process discussed with the patient and all questions wereanswered to patient's satisfaction. Follow with PCP in 1 to 2 weeks Total time spent, exact 35 minutes on discharge meds reconciliation, examination, coordination of care with nurses and ancillary staff, review of imaging and blood test and discussion with the patient on follow-up instructions. Clinical Impression(s) from Imaging Studies Chest CTA 05/13/25 13:49 IMPRESSION: 1. Markedly limited exam, without evidence [...] of malignancy or associated symptoms. Reading Location: [id number] Medications at Discharge Home Medications Oxygen, Home [Home Oxygen] 2 - 4 lpm QHS sob/copd 11/13/17 albuterol sulfate 90 mcg/actuation breath activated powder inhaler 2 inh inhalation Q6H PRN shortness of breath 02/19/25 fluticasone fur. 200 mcg-umeclid 62.5 mcg-vilant 25 mcg inhalat.powder (Trelegy Ellipta) 1 ea inhalation DAILY sob 02/19/25 ipratropium 0.5 mg-albuterol 3 mg (2.5 mg base)/3 mL nebulization soln 3 ml inhalation Q6H PRN shortness of breath 02/19/25 multivitamin (Daily Multi-Vitamin tablet) 1 tab PO DAILY supplement 02/19/25 sodium chloride 0.65 % nasal spray aerosol ([place] Saline) 1 spray intranasal BID PRN dry nasal passages 02/19/25 ascorbic acid (vitamin C) 500 mg capsule 500 mg PO DAILY PRN supplement 03/30/25 cinnamon bark 500 mg capsule (Cinnamon) 500 mg PO QDAY supplement 03/30/25 mecobalamin (vitamin B12) 1,000 mcg chewable tablet 1,000 mcg PO QDAY [id number] nystatin 100,000 unit/gram topical cream 1 applic topical BID skin rash 04/23/25 apixaban 5 mg tablet (Eliquis) 5 mg PO BID blood thinner #180 tabs 05/07/25 atorvastatin 40 mg tablet 40 mg PO QHS #90 tabs 05/07/25 dapagliflozin propanediol 10 mg tablet (Farxiga) 10 mg PO QAM #30 tabs 05/07/25 diltiazem HCl 180 mg capsule,extended release 24 hr 180 mg PO Q12 #180 caps 05/07/25 metoprolol tartrate 50 mg tablet 50 mg PO BID blood pressure #180 tabs 05/07/25 potassium chloride 20 mEq tablet,extended release(part/cryst) (Klor-Con M) 20 meq PO BID supplement #180 tabs 05/07/25 amiodarone 200 mg tablet 200 mg PO DAILY Afib 05/13/25 furosemide 40 mg tablet 60 mg (1.5 x 40 mg) PO BID diuretic #180 tabs 05/17/25 guaifenesin 1,200 mg tablet, extended release 12 hr (Mucus Relief ER) 1,200 mg PO BID cough 7 days #0 tabs 05/17/25 prednisone 10 mg tablet 10 mg PO DAILY #30 tabs 05/17/25 Physical Exam Narrative Seen and examined. No acute issues. Patient is doing well on baseline oxygen. Her breathing is better but she is still on 4 to 6 L of high flow oxygen. Using BiPAP at night. Patient admitted with extreme shortness of breath and felt mild sharp chest pain/stabbing in sensation. She has chronic cough with mild increase in severity. No fever. No dysuria. Physical exam General: Alert, Oriented x3, Cooperative. BMI 45.0 kg/m? HEENT: Atraumatic, PERRLA, EOMI, Normocephalic. Oral: No Gingival or Mucosal Lesions/ Ulcerations Neck: Supple, No JVD, Negative Carotid Bruits Chest wall/Lungs: Air entry mild diminished diffusely. Lungs are clear. Cardiovascular: Regular rate and rhythm, Normal S1,S2, No M/G/R Abdomen: Bowel Sounds Present, Soft, Non Tender, Non-Distended : No dysuria. No renal angle tenderness. No suprapubic tenderness. Extremities: Bilateral 2+ pitting edema, Capillary Refill Less than 3 Seconds Skin: No rashes, No breakdown Musculoskeletal: No Tenderness to Palpation of Joints or Extremities Neurological: Cranial nerves II-XII grossly intact, DTR 2+/4. No acute focal neurological deficit. Psych/Mental Status: Flat affect. Weight / BMI Weight Weight: 262 lb 2.991 oz Body Mass Index (BMI) 45.0 ABG / Lab / Microbiology Data 05/16/25 04:07 05/16/25 04:07 D/C Instructions Weight Bearing Status: Weight bearing as tolerated [...] frequency: Continuous Continuous oxygen liters per minute: 6 DC home with Oxygen: Yes Home O2 MD Review: I have reviewed the oxygen testing, and the patient qualifies for home oxygen equipment and portability. The patient is mobile in the home and the community. When: IN 2 WEEKS Meaningful Use Info Meaningful Use Meaningful Use Diagnoses (Choose all that apply): None applicable Discharge Plan Admission Admit Date/Time: 05/13/25 18:22 Primary Reason for Your Visit: COPD exacerbation Attending Provider: George Polanco Primary Care Provider: Phuc Martines Consulting Providers: Nicko Vallejo Instructions Additional Instructions / Restrictions: Follows [facility] museum registrar Dr. Ortiz chronically advised to follow-up in 1 to2 weeks and get PFT and sleep study Discharge Orders/Prescriptions Prescriptions: New prednisone 10 mg tablet 10 mg PO DAILY Qty: 30 0RF Rx Instructions: 40 mg for 3 days 30 mg for 3 days, 20 mg for 3 days,and 10 mg for 3 days Continued cinnamon bark [Cinnamon] 500 mg capsule 500 mg PO QDAY mecobalamin (vitamin B12) 1,000 mcg tablet,chewable 1,000 mcg PO QDAY dapagliflozin propanediol [Farxiga] 10 mg tablet 10 mg PO QAM Qty: 30 11RF Eliquis 5 mg tablet 5 mg PO BID Qty: 180 3RF metoprolol tartrate 50 mg tablet 50 mg PO BID Qty: 180 3RF potassium chloride [Klor-Con M20] 20 mEq tablet,ER particles/crystals 20 meq PO BID Qty: 180 3RF diltiazem HCl 180 mg capsule,extended release 24hr 180 mg PO Q12 Qty: 180 3RF atorvastatin 40 mg tablet 40 mg PO QHS Qty: 90 3RF Oxygen, Home [Home Oxygen] 2 - 4 [...] [Daily Multi-Vitamin] Tablet 1 tab PO DAILY [place] Saline 0.65 % aerosol,spray 1 spray intranasal BID PRN (Reason: dry nasal passages) nystatin 100,000 unit/gram cream 1 applic topical BID amiodarone 200 mg tablet 200 mg PO DAILY Changed furosemide 40 mg tablet 60 mg PO BID Qty: 180 3RF guaifenesin [Mucus Relief ER] 1,200 MG tablet 1,200 mg PO BID 7 Days Qty: 0 0RF Referrals / Follow Up: Phuc Martines DO [Primary Care Provider] - Disposition Disposition (needs filled in before D/C Order can be placed): [facility] Facility Charges/Coding Visit Charges Inpatient E&M: 34866 Disch Hosp >30min 05/17/25 1117 <Electronically signed by George Polanco MD> Cosigner Signature (if applicable): CC: Dr. Diana Gonzalez MD; Dr. Phuc Martines DO; Dr. George Polanco MD~ Signed [facility] Work Phone: Discharge summary Author George Polanco [facility] Note Date/Time May 17, 2025 11:2 2am [facility] Medical Records Department [address] [place] [address] Transfer to [facility] MR#: [id number] Acct: [id number] Name: RAJENDRA LUCERO Rep #:[id number] : [id number] From: Geroge Willis PCP: Dr. Phuc Martines DO Status:AD M IN Certification of patient admission REQUIRED AT TIME OF ADMISSION. I CERTIFY THAT POST-HOSPITAL ECF SERVICES ARE REQUIRED TO BE GIVEN ON AN IN-PATIENT BASIS BECAUSE OF THE ABOVE NAMED PATIENT'S NEED FOR FPC CARE ON A CONTINUING BASIS FOR THE CONDITION(S) FOR WHICH HE/SHE WAS RECEIVING IN-PATIENT HOSPITAL SERVICES PRIOR TO HIS/HER TRANSFER TO THE ECF. 05/17/25 1119<Electronically signed by George Polanco MD> Diet Diet Order/Speech Therapy: INPATIENT Hospital Diet / Speech Therapy Order(s) 05/13/25 19:38 Diet: Cardiac - Heart Healthy Food consistency:: Regular Liquid Consistency:: Regular/Thin Routine Orders/Code Status Suppository Type: Dulcolax 10mg Suppository Frequency: Daily PRN DC O2, CPAP, BIPAP needs Home O2 Discharge instructions: Yes Type of respiratory needs?: Oxygen Oxygen frequency: Continuous Continuous oxygen liters per minute: 6 Therapies Extremity Affected:: Bilateral Lower Physical Therapy: Eval and Treat Occupational Therapy: Eval and Treat Speech Therapy: Eval and Treat Problem/Diagnosis (1) Acute and chronic respiratory failure with hypercapnia: Status: Chronic Code(s): J96.22 - Acute and chronic respiratory failure with hypercapnia (2) Acute on chronic heart failure with preserved ejection fraction (HFpEF): Status: Acute Code(s): I50.33 - Acute on chronic diastolic (congestive) heart failure Plan Patient is a 69-year-old female who presented to [facility] ED on 05/13/2025 with worsening shortness of breath and lower extremity swelling. 1. Acute on chronic hypercapnic respiratory failure most likely due to COPD andheart failure exacerbation ? Admit under inpatient status to PCU. Suspect multifactorial due to acute on chronic HFpEF and untreated ROXY as below. ABG on admit with pH 7.36 but pCO2 92. Patient on 3.5 L at rest and 6 L on exertion at baseline. CTA chest showedno PE and no pleural effusions with mild vascular congestion, severe centrilobular emphysematous changes. Patient improved on the BiPAP, did not require intubation. 05/14: Still on high flow oxygen, 10 L, respiratory rate 20/min. Continue BiPAP during naps and at night and as needed for respiratory fatigue. Patient is being managed on scheduled bronchodilator, IV Solu-Medrol, Mucinex, incentive spirometry and Pep. Atypical chest pain described as pulmonary related, 2 serial troponins are negative. ACS ruled out. Respiratory panel negative. 05/15: Patient is doing better than yesterday with better ventilation and oxygenation. 05/16: Patient is gradually improving but she still needs 4 to 6 L of high flow oxygen therefore probably 1 more day. digital project manager for discharge planning. 05/17: She is on baseline of oxygen 4 to 6 L at home. She has been discharged torehab. Tapering dose of prednisone given. She has inhaler/DuoNebnebulization, Mucinex. Continue incentive spirometry and PEP for 1 week 2. Acute on chronic HFpEF with moderate pulmonary hypertension, mild valvular heart disease ? Mild vascular congestion on chest imaging and +1-2 lower extremity pitting edema on exam noted. BNP 2554, though notably BNP was 2566 on 05/07. However, patient was on Lasix 60 mg twice daily without much improvement. IV Lasix 40 mgtwice daily for now, monitor daily BMP and urine output. Continue home dapagliflozin. Recent echo 02/19/2025 Interpretation Summary Borderline LV systolic function. Estimated LVEF 45-50%. Moderate global right ventricular systolic dysfunction. There is mild biatrial dilatation. Moderate (2+) eccentric mitral valve insufficiency. Mild tricuspid valve insufficiency. Right ventricular systolic pressure estimated to be 53 mmHg. The study was technically difficult. 05/15 continue diuresis. 05/16: Patient still has significant leg swelling 2+ edema therefore Nina wrap bandage 05/17: Furosemide 40 mg twice daily home dose increased to 60 mg p.o. twice daily. Continue Nina wrap bandage. 3. Class III obesity with ROXY not on home PAP therapy ? BMI 45 on admit. Complicates hospital course and care. Patient reports having sleep study done in the past but did not think she could tolerate PAP therapy and has never had a PAP machine at home. Continue PAP therapy at night and with naps while inpatient as noted above. digital project manager to help, set up sleep study shortly after discharge. 05/15 on BiPAP. 05/17 follow-up in pulmonary clinic. 4. Paroxysmal A-fib/flutter on Eliquis, hypertension, hyperlipidemia, history of VTE ? Follows with outpatient cardiology. In rate controlled atrial flutter with rate in the 100s on admit. EKG showed atrial flutter with rate 106 bpm. Normotensive to hypertensive in the ED. Continue home Eliquis, amiodarone, diltiazem, Lopressor and atorvastatin. 5. Alcohol abuse ? Patient reports drinking 2 alcoholic drinks daily and on chart review, she reported 2 drinks a day during recent admission at the end of March. However, daughter noted that there are days where patient will drink 4-5 alcoholic drinks. on CIWA protocol without medications for now. Monitor. 6. History of tobacco abuse ? Encouraged continued cessation. 7. Solitary pulmonary nodules: Unchanged solid nodule in the right upper lobe measuring 1.2 x 0.4 cm, RUL measuring 3 mm. Also shows extensive centrilobular and paraseptal emphysema. Biapical scarring. Linear consolidation at posteriorlung bases, right greater than left DVT prophylaxis: Not indicated, on Eliquis 5 mg twice daily. CODE STATUS: Full code, verified Discharge medication reconciliation done. Discharge follow-up instructions completed. Discharge process discussed with the patient and all questions wereanswered to patient's satisfaction. Follow with PCP in 1 to 2 weeks Total time spent, exact 35 minutes on discharge meds reconciliation, examination, coordination of care with nurses and ancillary staff, review of imaging and blood test and discussion with the patient on follow-up instructions. Clinical Impression(s) from Imaging Studies Chest CTA 05/13/25 13:49 IMPRESSION: 1. Markedly limited exam, without evidence [...] of malignancy or associated symptoms. Reading Location: [id number] Allergies/Procedures Done in Hospital Allergies ibuprofen (From Advil) Allergy (Mild, Verified 05/13/25 13:10) Hives nitrofurantoin (From Macrobid) Allergy (Verified 05/13/25 13:10) Rash Type of Care/Length of Stay Estimated LOS: Convalescent Care Less Than 30 days Type of Care Needed: Skilled Rehab Potential: Good Prognosis: Good Additional Orders/Day of Discharge Day of Discharge: 05/17/25 Dietary and Speech Recommendations Dietitian Recommendations/Changes: Continue cardiac diet to manage medication conditions. Continue 120ml ensure clear TID with medpass per pt request. Will monitor weight trends. Discharge Plan Admission Admit Date/Time: 05/13/25 18:22 Primary Reason for Your Visit: COPD exacerbation Attending Provider: George Polanco Primary Care Provider: Phuc Martines Consulting Providers: Nicko Vallejo Instructions Additional Instructions / Restrictions: Follows [facility] museum registrar Dr. Ortiz chronically advised to follow-up in 1 to2 weeks and get PFT and sleep study Discharge Orders/Prescriptions Prescriptions: New prednisone 10 mg tablet 10 mg PO DAILY Qty: 30 0RF Rx Instructions: 40 mg for 3 days 30 mg for 3 days, 20 mg for 3 days,and 10 mg for 3 days Continued cinnamon bark [Cinnamon] 500 mg capsule 500 mg PO QDAY mecobalamin (vitamin B12) 1,000 mcg tablet,chewable 1,000 mcg PO QDAY dapagliflozin propanediol [Farxiga] 10 mg tablet 10 mg PO QAM Qty: 30 11RF Eliquis 5 mg tablet 5 mg PO BID Qty: 180 3RF metoprolol tartrate 50 mg tablet 50 mg PO BID Qty: 180 3RF potassium chloride [Klor-Con M20] 20 mEq tablet,ER particles/crystals 20 meq PO BID Qty: 180 3RF diltiazem HCl 180 mg capsule,extended release 24hr 180 mg PO Q12 Qty: 180 3RF atorvastatin 40 mg tablet 40 mg PO QHS Qty: 90 3RF Oxygen, Home [Home Oxygen] 2 - 4 [...] [Daily Multi-Vitamin] Tablet 1 tab PO DAILY [place] Saline 0.65 % aerosol,spray 1 spray intranasal BID PRN (Reason: dry nasal passages) nystatin 100,000 unit/gram cream 1 applic topical BID amiodarone 200 mg tablet 200 mg PO DAILY Changed furosemide 40 mg tablet 60 mg PO BID Qty: 180 3RF guaifenesin [Mucus Relief ER] 1,200 MG tablet 1,200 mg PO BID 7 Days Qty: 0 0RF Referrals / Follow Up: Phuc Martines DO [Primary Care Provider] - Disposition Disposition (needs filled in before D/C Order can be placed): [facility] Facility 05/17/25 1119 <Electronically signed by George Polanco MD> Cosigner Signature (if applicable): CC: Dr. Nicko Vallejo DO; Dr. Phuc Martines DO ~ ADDENDUM by Dr. George Polanco MD on 05/17/25 at 1122 Addendum She needs BiPAP during nap and night, 15/8 mmHg 05/17/25 1122 <Electronically signed by George Polanco MD> cc: Dr. Nicko Vallejo DO; Dr. Phuc Martines DO ~* Signed [facility] Work Phone: Evaluation note* Diagnosis Chronic obstructive pulmonary disease, unspecified COPD type (HCC)- Primary Essential hypertension Unspecified essential hypertension Impaired fasting glucose Dyslipidemia Other and unspecified hyperlipidemia Vitamin D deficiency Unspecified vitamin D deficiency Lightheaded Dizziness and giddiness [facility] Chronic obstructive pulmonary disease, unspecified COPD type (HCC)- Primary Dyspnea and respiratory abnormalities Other dyspnea and respiratory abnormality [facility] Diagnosis Chronic obstructive pulmonary disease, unspecified COPD type (HCC) [facility] Diagnosis Chronic obstructive pulmonary disease, unspecified COPD type (HCC) [facility] Diagnosis Chronic obstructive pulmonary disease, unspecified COPD type (HCC)- Primary Chronic hypoxemic respiratory failure (HCC) Chronic respiratory failure Dyspnea and respiratory abnormalities Other dyspnea and respiratory abnormality Former smoker Personal history of tobacco use, presenting hazards to health [facility] Diagnosis Chronic obstructive pulmonary disease, unspecified COPD type (HCC)- Primary [facility] Diagnosis Chronic [...] oxygen [facility]* Diagnosis Cyst of spleen- Primary Other diseases of spleen [facility]* Diagnosis Encounter for screening mammogram for breast cancer [facility]* Diagnosis COVID- Primary Chronic obstructive pulmonary disease, unspecified COPD type (HCC) Bacterial sinusitis Unspecified sinusitis (chronic) Oxygen dependent Dependence on supplemental oxygen [facility]* Diagnosis Chronic obstructive pulmonary disease, unspecified COPD type (HCC) Oxygen dependent Dependence on supplemental oxygen [facility] Diagnosis Cyst of spleen- Primary Other diseases of spleen [facility] Diagnosis Chronic obstructive pulmonary disease, unspecified COPD type (HCC)- Primary Oxygen dependent Dependence on supplemental oxygen [facility] Diagnosis Chronic obstructive pulmonary disease, unspecified COPD type (HCC) [facility] Diagnosis Chronic obstructive pulmonary disease, unspecified COPD type (HCC)- Primary Oxygen dependent Dependence on supplemental oxygen [facility] Diagnosis Chronic obstructive pulmonary disease, unspecified COPD type (HCC) Oxygen dependent Dependence on supplemental oxygen [facility] Diagnosis COPD, severe (HCC)- Primary Chronic airway obstruction, not elsewhere classified Chronic hypoxemic respiratory failure (HCC) Chronic respiratory failure Former cigarette smoker Personal history of tobacco use, presenting hazards to health Morbid obesity (HCC) Morbid obesity [facility] Diagnosis Essential hypertension Unspecified essential hypertension [facility] [facility] Diagnosis Essential [...] and unspecified hyperlipidemia [facility] Diagnosis Encounter for screening mammogram for breast cancer [facility] Diagnosis Cyst of spleen Other diseases of spleen documented [facility] Diagnosis Chronic obstructive pulmonary disease, unspecified COPD type (HCC) Chronic respiratory failure with hypoxia (HCC) Chronic respiratory failure Stage 3 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) Oxygen dependent Dependence on supplemental oxygen [facility] Diagnosis Cyst of spleen Other diseases of spleen [facility] Diagnosis Chronic obstructive pulmonary disease, unspecified COPD type (HCC)- Primary Oxygen dependent Dependence on supplemental oxygen [facility] Diagnosis Encounter for screening mammogram for malignant neoplasm of breast Other screening mammogram documented [facility] Diagnosis Former cigarette smoker Personal history of tobacco use, presenting hazards to health documented [facility] Diagnosis Dyslipidemia- Primary Other and unspecified hyperlipidemia Impaired fasting glucose [facility] Diagnosis Stage 3 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)- Primary Chronic respiratory failure with hypoxia (HCC) Chronic respiratory failure Morbid obesity with BMI of 45.0-49.9, adult (HCC) Morbid obesity Lung nodules Other nonspecific abnormal finding of lung field documented [facility] Diagnosis Skin infection- Primary Unspecified local infection of skin and subcutaneous tissue documented [facility] Diagnosis Acute bronchitis with chronic obstructive pulmonary disease (COPD) (HCC) (HCC)- Primary Obstructive chronic bronchitis with acute bronchitis Chronic obstructive pulmonary disease, unspecified COPD type (HCC) Acute otitis media, left Unspecified otitis media Dyslipidemia Other and unspecified hyperlipidemia Impaired fasting glucose Vitamin D deficiency Unspecified vitamin D deficiency Essential hypertension Unspecified essential hypertension Stage 3 severe COPD by GOLD classification ([facility]) Fatigue, unspecified type Oxygen dependent Dependence on supplemental oxygen Morbid obesity with BMI of 45.0-49.9, adult (HCC) Morbid obesity Thoracic aortic ectasia (HCC) Thoracic aortic ectasia [facility] Diagnosis Stage 3 severe COPD by GOLD classification ([facility])- Primary Chronic hypoxemic respiratory failure (HCC) Chronic respiratory failure Former cigarette smoker Personal history of tobacco use, presenting hazards to health Morbid obesity (HCC) Morbid obesity documented [facility] Diagnosis Essential hypertension Unspecified essential hypertension documented [facility] Diagnosis COVID Bacterial sinusitis Unspecified sinusitis (chronic) Chronic obstructive pulmonary disease, unspecified COPD type (HCC) documented [facility] this [facility]* Diagnosis Acute gout involving toe of right foot, unspecified cause documented [facility] this [facility] Diagnosis Multiple lung nodules- Primary Other nonspecific abnormal finding of lung field Encounter for screening for lung cancer Former tobacco use Personal history of tobacco use, presenting hazards to health documented [facility]* Diagnosis Former cigarette smoker Personal history of tobacco use, presenting hazards to health documented [facility]* Diagnosis Encounter for screening mammogram for breast cancer documented [facility]* Diagnosis Dyslipidemia- Primary Other and unspecified hyperlipidemia Chronic obstructive pulmonary disease, unspecified COPD type (HCC) Impaired fasting glucose documented [facility]* Diagnosis Encounter for screening mammogram for breast cancer documented [facility]* Diagnosis Stage 3 severe COPD by GOLD classification ([facility])- Primary Chronic respiratory failure with hypoxia (HCC) Chronic respiratory failure Former cigarette smoker Personal history of tobacco use, presenting hazards to health documented [facility]* Diagnosis Medicare annual wellness visit, subsequent- Primary Routine general medical examination at a health care facility Hair thinning Alopecia, unspecified Fatigue, unspecified type Impaired fasting glucose Dyslipidemia Other and unspecified hyperlipidemia Vitamin D deficiency Unspecified vitamin D deficiency Stage 3 severe COPD by GOLD classification ([facility]) Essential hypertension Unspecified essential hypertension Oxygen dependent Dependence on supplemental oxygen Morbid obesity with BMI of 45.0-49.9, adult (HCC) Morbid obesity [facility]* Diagnosis Multiple lung nodules- Primary Other nonspecific abnormal finding of lung field Former tobacco use Personal history of tobacco use, presenting hazards to health documented [facility]* Diagnosis Lung nodules- Primary Other nonspecific abnormal finding of lung field documented [facility]* Diagnosis Hospital discharge follow-up- Primary Other follow-up examination Atrial flutter, unspecified type (HCC) Congestive heart failure, unspecified HF chronicity, unspecified heart failure type (HCC) Stage 3 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) Oxygen dependent Dependence on supplemental oxygen Essential hypertension Unspecified essential hypertension documented in this encounter [facility] note* Diagnosis Daytime sleepiness- Primary Stage 3 severe COPD by GOLD classification ([facility]) Chronic respiratory failure with hypoxia (HCC) Chronic respiratory failure documented in this encounter [facility] note* Diagnosis Essential (primary) hypertension Unspecified essential hypertension Atrial flutter, unspecified type ([facility]) documented in this encounter [facility] note* Diagnosis Acute cystitis with hematuria Acute cystitis Candidal intertrigo Candidiasis of skin and nails Confusion Unspecified psychosis [facility]* Diagnosis Acute confusion- Primary Delirium due to conditions classified elsewhere Atrial flutter, unspecified type (HCC) Tachycardia Tachycardia, unspecified Stage 3 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) Congestive heart failure, unspecified HF chronicity, unspecified heart failure type (HCC) Hypersomnia Hypersomnia, unspecified Hives Urticaria, unspecified Abnormal pulse oximetry Abnormal arterial blood gases documented in this encounter [facility] note* Diagnosis Hospital discharge follow-up- Primary Other follow-up examination Atrial flutter, unspecified type (HCC) Stage 3 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) RUQ pain Abdominal pain, right upper quadrant Congestive heart failure, unspecified HF chronicity, unspecified heart failure type (HCC) Essential hypertension Unspecified essential hypertension documented in this encounter [facility] note* Diagnosis Elevated alkaline phosphatase level- Primary Other nonspecific abnormal serum enzyme levels [facility] Diagnosis Centrilobular emphysema (HCC)- Primary Oxygen dependent Dependence on supplemental oxygen Chronic respiratory failure with hypoxia (HCC) Essential hypertension Unspecified essential hypertension Typical atrial flutter (HCC) Alcohol abuse Nondependent alcohol abuse, unspecified drinking behavior Mixed hyperlipidemia Bilateral lower extremity edema [facility] Virginia Henriquez [facility] Note Date/Time April 23, 2025 10:1 5pm [facility] System Medical Records Department [address] [place] [address] H&P Exam - Hospitalist 04/23/259 MR#: [id number] Acct: [id number] Name: RAJENDRA LUCERO Rep #:[id number] : 1955 69 From: Virginia Henriquez MD PCP: Dr. Phuc Martines, DO Status:[facility] [place] Location: [place] [id number] HPI - General General Date of [...] abuse recently cut back [facility] with history of [...] 1 and placed on a diltiazem drip. [facility] Medical History (Updated 04/23/25 @ 22:15 by [...] BID PRN dry 02/19/25 Unknown History aerosol ([place] Saline) nasal passages triamcinolone acetonide 0.5 % [...] 83.8 H, Lymph % (Auto) 7.9 L, [place] % (Auto) 6.6, Eos % (Auto) 0.8, [...] Clarity Clear, Urine pH 6.0, Ur Specific [place] 1.015, Urine Protein 30 H, Urine Glucose [...] IMPRESSION: Cardiomegaly with mild congestion. Reading Location: [facility] Brain CT 04/23/25 18:04 IMPRESSION: 1. No acute intracranial hemorrhage, midline shift or mass effect. If symptoms persist, further evaluation with MRI is recommended. 2. Mild small vessel ischemic/degenerative changes. 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 Elena did discuss this with her [...] Time: 16minutes. Charges/Coding Visit Charges Inpatient E&M: 00489 Init Hosp L3 Procedures Hospitalists Procedures: 17975 Advncd Care Plan 30 Min 04/23/258 <Electronically signed by Virginia Henriquez MD> Cosigner Signature (if applicable): CC: Dr. Virginia Henriquez MD; Dr. Phuc Martines, DO~ Signed [facility] Work Phone: Hospital Discharge instructionsAmbulatory Orders* Electrophysiology Location: None Selected [facility] Work Phone: Reason for referral (narrative)* Outpatient Procedure (Routine) - Authorized Specialty Diagnoses / Procedures Referred By Contac t Referred To [facility] Diagnoses Chronic obstructive pulmonary disease, unspecified COPD type (HCC) Procedures ECHO ECHO TTHRC R-T 2D W/WOM-MODE COMPL SPEC&COLR D Hodan Christine PA-C [address] [place] [address] [facility] [address] [address] Referral ID Status Reason Start Date Expiration Date Visits Requested Visits Authorized [id number] Authorized Auto-Generat ed Referral OON/Self Pay Override 02/09/2022 02/09/2023 1 1 * Outpatient Procedure (Routine) - Authorized Specialty Diagnoses / Procedures Referred By Contac t Referred To Contact [facility] Diagnoses Chronic obstructive pulmonary disease, unspecified COPD type (HCC) Procedures OXIMETRY WITH AMBULATION NONINVASIVE EAR/PULSE OXIMETRY MULTIPLE Hodan Tejada PA-C [address] [place] [address] [facility] [address] [place] [address] Referral ID Status Reason Start Date Expiration Date Visits Requested Visits Authorized [id number] Authorized Auto-Generat ed Referral OON/Self Pay Override 02/09/2022 03/11/2023 1 1 * Outpatient Procedure (Routine) - Authorized Specialty Diagnoses / Procedures Referred By Contac t Referred To Contact [facility] Diagnoses Chronic obstructive pulmonary disease, unspecified COPD type (HCC) Procedures SPIROMETRY BASELINE ONLY SPMTRY W/VC EXPIRATORY MARTIN W/WO MXML VOL VNTJ Hodan Christine PA-C [address] [place] [address] [address] [address] [address] Referral ID Status Reason Start Date Expiration Date Visits Requested Visits Authorized [id number] Authorized Auto-Generat ed Referral OON/Self Pay Override 02/09/2022 03/11/2023 1 1 [facility] for referral (narrative)* Diagnostic Procedure Only (Routine) - Authorized Specialty Diagnoses / Procedures Referred By Contac t Referred To Contact [facility] Diagnoses Cyst of spleen Procedures US ABD SPLEEN US ABDOMINAL REAL TIME W/IMAGE LIMITED Pratibha King APRN.PRACTICE NURSE [address] [place] [address] [facility] Referral ID Status Reason Start Date Expiration Date Visits Requested Visits Authorized [id number] Authorized Auto-Generat ed Referral 08/30/2022 09/29/2023 1 1 [facility] for referral (narrative)* Diagnostic Procedure Only (Routine) - Authorized Specialty Diagnoses / Procedures Referred By Contac t Referred To Contact [facility] Diagnoses Encounter for screening mammogram for breast cancer Procedures ANUSHA SCREENING SCREENING MAMMOGRAPHY BI 2-VIEW BREAST INC Phuc Tejeda DO [address] [place] [address] [facility] [address] [place] [address] Referral ID Status Reason Start Date Expiration Date Visits Requested Visits Authorized [id number] Authorized Auto-Generat ed Referral 09/05/2022 10/05/2023 1 1 [facility] for referral (narrative)* Diagnostic Procedure Only (Routine) - Authorized Specialty Diagnoses / Procedures Referred By Contac t Referred To Contact [facility] IMAG[facility] Diagnoses Cyst of spleen Procedures US ABD SPLEEN US ABDOMINAL REAL TIME W/IMAGE LIMITED Pratibha King APRN.PRACTICE NURSE [address] [place] [address] Us Imaging Referral ID Status Reason Start Date Expiration Date Visits Requested Visits Authorized [id number] Authorized Auto-Generat ed Referral 03/06/2023 10/06/2023 1 1 [facility] for referral (narrative)* Outpatient Procedure (Routine) - Authorized Specialty Diagnoses / Procedures Referred By Contac t Referred To Contact [facility] Diagnoses Chronic obstructive pulmonary disease, unspecified COPD type (HCC) Oxygen dependent Procedures OXIMETRY WITH AMBULATION NONINVASIVE EAR/PULSE OXIMETRY MULTIPLE RAFAELA Christine, Hodan Desouza PA-C [address] [facility] [place] [address] [facility] [address] [place] [address] Referral ID Status Reason Start Date Expiration Date Visits Requested Visits Authorized [id number] Authorized Auto-Generat ed Referral 05/30/2023 06/28/2024 1 1 T [facility] for referral (narrative)* Diagnostic Procedure Only (Routine) - Authorized Specialty Diagnoses / Procedures Referred By Contac t Referred To Contact [facility] Diagnoses Encounter for screening mammogram for malignant neoplasm of breast Procedures ANUSHA SCREENING SCREENING MAMMOGRAPHY BI 2-VIEW BREAST INC Phuc Tejeda, DO [address] [place] [address] [facility] [address] [place] [address] Referral ID Status Reason Start Date Expiration Date Visits Requested Visits Authorized [id number] Authorized Auto-Generat ed Referral 09/12/2024 1 1 T [facility] for referral (narrative)* Diagnostic Procedure Only (Routine) - Closed Specialty Diagnoses / Procedures Referred By Contac t Referred To Contact [facility] Diagnoses Encounter for screening mammogram for breast cancer Procedures ANUSHA SCREENING SCREENING MAMMOGRAPHY BI 2-VIEW BREAST INC Phuc Tejeda, DO [address] [place] [address] [facility] [address] [place] [address] Referral ID Status Reason Start Date Expiration Date V isits Requested Visits Authorized [id number] Closed Auto-Generate d Referral 09/05/2022 10/05/2023 1 1 [facility] for referral (narrative)* Diagnostic Procedure Only (Routine) - Closed Specialty Diagnoses / Procedures Referred By Contac t Referred To Contact [facility] IM[facility] Diagnoses Cyst of spleen Procedures US ABD SPLEEN US ABDOMINAL REAL TIME W/IMAGE LIMITED Pratibha King, CHILD CARE CENTER ASSISTANT DIRECTOR.PRACTICE NURSE [address] [place] [address] [place] [address] Referral ID Status Reason Start Date Expiration Date V isits Requested Visits Authorized [id number] Closed Auto-Generate d Referral 03/06/2023 10/06/2023 1 1 [facility] for referral (narrative)* Diagnostic Procedure Only (Routine) - Pending Review Specialty Diagnoses / Procedures Referred By Contac t Referred To Contact [facility] Diagnoses Cyst of spleen Procedures US ABD SPLEEN US ABDOMINAL REAL TIME W/IMAGE LIMITED Pratibha King, CHILD CARE CENTER ASSISTANT DIRECTOR.PRACTICE NURSE [address] [place] [address] [place] [address] Referral ID Status Reason Start Date Expiration Date Visits Requested Visits Authorized [id number] Pending Review Auto-Generat ed Referral 08/30/2022 09/29/2023 1 1 [facility] for referral (narrative)* Outpatient Procedure (Routine) - Closed Specialty Diagnoses / Procedures Referred By Contac t Referred To Contact [facility] Diagnoses Chronic obstructive pulmonary disease, unspecified COPD type (HCC) Oxygen dependent Procedures OXIMETRY WITH AMBULATION NONINVASIVE EAR/PULSE OXIMETRY Phuc Montgomery DO [address] [place] [address] [facility] [place] [address] Referral ID Status Reason Start Date Expiration Date V isits Requested Visits Authorized [id number] Closed Auto-Generate d Referral 09/24/2022 10/24/2023 1 1 [facility] for referral (narrative)* Diagnostic Procedure Only (Routine) - Closed Specialty Diagnoses / Procedures Referred By Sonaliac t Referred To Contact [facility] Diagnoses Encounter for screening mammogram for malignant neoplasm of breast Procedures ANUSHA SCREENING SCREENING MAMMOGRAPHY BI 2-VIEW BREAST INC CAD Phuc Martines, DO [address] [place] [address] [facility] [address] [place] [address] Referral ID Status Reason Start Date Expiration Date V isits Requested Visits Authorized [id number] Closed Auto-Generate d Referral 08/14/2023 09/12/2024 1 1 [facility] for referral (narrative)* Diagnostic Procedure Only (Routine) - New Request Specialty Diagnoses / Procedures Referred By Marcy t Referred To Contact [facility] Diagnoses Encounter for screening mammogram for breast cancer Procedures ANUSHA SCREENING W ASHLEY SCREENING DIGITAL BREAST TOMOSYNTHESIS BI SCREENING MAMMOGRAPHY BI 2-VIEW BREAST INC CAD Phuc Martines, DO [address] [place] [address] [facility] [address] [place] [address] Referral ID Status Reason Start Date Expiration Date Visits Requested Visits Authorized [id number] New Request Auto-Generat ed Referral 11/20/2025 1 1 [facility] for referral (narrative)* Diagnostic Procedure Only (Routine) - Closed Specialty Diagnoses / Procedures Referred By Contac t Referred To Contact [facility] Diagnoses Encounter for screening mammogram for breast cancer Procedures ANUSHA SCREENING W ASHLEY SCREENING DIGITAL BREAST TOMOSYNTHESIS BI SCREENING MAMMOGRAPHY BI 2-VIEW BREAST INC CAD Phuc Martines, DO [address] [place] [address] [facility] [address] [place] [address] Referral ID Status Reason Start Date Expiration Date V isits Requested Visits Authorized [id number] Closed Auto-Generate d Referral 10/21/2024 11/20/2025 1 1 [facility] for visit Narrative* Outpatient Procedure (Routine) - Closed Specialty Diagnoses / Procedures Referred By Contac t Referred To Contact [facility] Diagnoses Chronic obstructive pulmonary disease, unspecified COPD type (HCC) Oxygen dependent Procedures OXIMETRY WITH AMBULATION NONINVASIVE EAR/PULSE OXIMETRY MULTIPLE Phuc Maldonado, DO [address] [place] [address] [facility] [address] [place] [address] Referral ID Status Reason Start Date Expiration Date V isits Requested Visits Authorized [id number] Closed Auto-Generate d Referral 09/24/2022 10/24/2023 1 1 [facility] for visit Narrative* Diagnostic Procedure Only (Routine) - Closed Specialty Diagnoses / Procedures Referred By Contac t Referred To Contact [facility] Diagnoses Encounter for screening mammogram for breast cancer Procedures ANUSHA SCREENING SCREENING MAMMOGRAPHY BI 2-VIEW BREAST INC CAD Phuc Martines, DO [address] [place] [address] [facility] Imaging [address] [place] [address] Referral ID Status Reason Start Date Expiration Date V isits Requested Visits Authorized [id number] Closed Auto-Generate d Referral 09/05/2022 10/05/2023 1 1 [facility] for visit Narrative* Diagnostic Procedure Only (Routine) - Closed Specialty Diagnoses / Procedures Referred By Contac t Referred To Contact [facility] Diagnoses Cyst of spleen Procedures US ABD SPLEEN US ABDOMINAL REAL TIME W/IMAGE LIMITED Pratibha King APRN.PRACTICE NURSE [address] [place] [address] Us Imaging [facility] Referral ID Status Reason Start Date Expiration Date V isits Requested Visits Authorized [id number] Closed Auto-Generate d Referral 03/06/2023 10/06/2023 1 1 [facility] for visit Narrative* Diagnostic Procedure Only (Routine) - Closed Specialty Diagnoses / Procedures Referred By Marcy boudreaux Referred To Contact [facility] Diagnoses Encounter for screening mammogram for malignant neoplasm of breast Procedures ANUSHA SCREENING SCREENING MAMMOGRAPHY BI 2-VIEW BREAST INC CAD Phuc Martines L, DO [address] [place] [address] [facility] [address] [place] [address] Referral ID Status Reason Start Date Expiration Date V isits Requested Visits Authorized [id number] Closed Auto-Generate d Referral 08/14/2023 09/12/2024 1 1 [facility] for visit Narrative* Diagnostic Procedure Only (Routine) - Closed Specialty Diagnoses / Procedures Referred By Marcy boudreaux Referred To Contact [facility] Diagnoses Encounter for screening mammogram for breast cancer Procedures ANUSHA SCREENING W ASHLEY SCREENING DIGITAL BREAST TOMOSYNTHESIS BI SCREENING MAMMOGRAPHY BI 2-VIEW BREAST INC CAD Phuc Martines L, DO [address] [place] [address] [facility] [address] [place] [address] Referral ID Status Reason Start Date Expiration Date V isits Requested Visits Authorized [id number] Closed Auto-Generate d Referral 10/21/2024 11/20/2025 1 1 [facility] Summary Purpose Family History No Family History Records Found Relationship Condition Age at Onset Recorded Date/T farooq Unknown Family History?COPD Unknown March 9:32pm Family History?COPD Unknown March 9:32pm Family History?Cancer Unknown March 282016 9:32pm Relationship Condition Age at Onset Recorded Date/T farooq father Malignant neoplasm Unknown mother Chronic obstructive pulmonary disease Unk nown Alcoholism Unknown grandmother Hypertension Unknown Disorder of thyroid Unknown Advance Directives No Advanced Directives Records FoundDocuments on File Type Date Recorded 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 No February 19, 2025 4:27pm Advance Directive Response Recorded Date/ Time Do you have a Healthcare Power of Membership Sales Representative? No February 19, 2025 4:27pm Do you have a Healthcare Power of Membership Sales Representative? No April 23, 2025 4:50pm Advance Directive Response Recorded Date/ Time Do you have a Healthcare Power of Membership Sales Representative? No February 19, 2025 4:27pm Do you have a Healthcare Power of Membership Sales Representative? Yes April 23, 2025 10:47pm Name of Medical Power of Membership Sales Representative Lizbet Ottoniel April 23, 2025 10:47pm Advance Directive Response Recorded Date/ Time Do you have a Healthcare Power of Membership Sales Representative? No February 19, 2025 4:27pm Do you have a Healthcare Power of Membership Sales Representative? Yes April 23, 2025 10:47pm Name of Medical Power of Membership Sales Representative Lizbet Alcazar April 23, 2025 10:47pm Do you have a Healthcare Power of Membership Sales Representative? Yes May 13, 2025 1:22pm Advance Directive Response Recorded Date/ Time Do you have a Healthcare Power of Membership Sales Representative? No February 19, 2025 4:27pm Do you have a Healthcare Power of Membership Sales Representative? Yes April 23, 2025 10:47pm Name of Medical Power of Membership Sales Representative Lizbet Alcazar April 23, 2025 10:47pm Do you have a Healthcare Power of Membership Sales Representative? Yes May 13, 2025 7:54pm Advance Directive Response Recorded Date/ Time Do you have a Healthcare Power of Membership Sales Representative? Yes April 23, 2025 10:47pm Name of Medical Power of Membership Sales Representative Lizbet Alcazar April 23, 2025 10:47pm Advance Directives on File Yes Ganga boudreaux 2024 11:01am Living Will Yes June 24 11:01am Do you have a Healthcare Power of Membership Sales Representative? Yes June 24, 2025 11:01am Name of Medical Power of Membership Sales Representative Lizbet Alcazar June 24, 2025 11:01am Advance Directives Yes June 24, 2025 11:01am Do you have a Healthcare Power of Membership Sales Representative? Yes May 13, 2025 7:54pm Reason for Referral Specialty Diagnoses / Procedures Referred By Contac t Referred To Contact CT IMAGING Diagnoses Chronic obstructive pulmonary disease, unspecified COPD type (HCC) Chronic respiratory failure with hypoxia (HCC) Stage 3 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) Oxygen dependent Procedures CT CHEST WO IVCON DIAGNOSTIC COMPUTED TOMOGRAPHY THORAX W/O CNTRST Phuc Martines L, DO [address] [place] [address] Ct Imaging Referral ID Status Reason Start Date Expiration Date Visits Requested Visits Authorized [id number] Authorized Auto-Generat ed Referral 08/01/2022 08/31/2023 1 1 Specialty Diagnoses / Procedures Referred By Contac t Referred To Contact CT IMAGING Diagnoses Chronic obstructive pulmonary disease, unspecified COPD type (HCC) Chronic respiratory failure with hypoxia (HCC) Stage 3 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) Oxygen dependent Procedures CT CHEST WO IVCON DIAGNOSTIC COMPUTED TOMOGRAPHY THORAX W/O CNTRST Phuc Martines L, DO [address] [place] [address] [place] [address] Referral ID Status Reason Start Date Expiration Date V isits Requested Visits Authorized [id number] Closed Auto-Generate d Referral 08/01/2022 08/31/2023 1 1 Specialty Diagnoses / Procedures Referred By Contac t Referred To Contact CT IMAGING Diagnoses Lung nodules Procedures CT LUNG FOLLOWUP WO IVCON DIAGNOSTIC COMPUTED TOMOGRAPHY THORAX W/O CNTRST Maricruz Camp, CHILD CARE CENTER ASSISTANT DIRECTOR.PRACTICE NURSE [address] [place] [address] [place] [address] Referral ID Status Reason Start Date Expiration Date Visits Requested Visits Authorized [id number] New Request Auto-Generat ed Referral 12/26/2024 11/18/2025 1 1 Specialty Diagnoses / Procedures Referred By Contac t Referred To Contact CT IMAGING Diagnoses Former cigarette smoker Procedures CT LUNG SCREEN WO IVCON COMPUTED TOMOGRAPHY THORAX LW DOSE LNG CA SCR C- Maricruz Camp, CHILD CARE CENTER ASSISTANT DIRECTOR.PRACTICE NURSE [address] [place] [address] [place] [address] Referral ID Status Reason Start Date Expiration Date V isits Requested Visits Authorized [id number] Closed Auto-Generate d Referral 10/11/2023 11/09/2024 1 [...] Hypoxia February 23, 2025 1:2 2pm S/P [facility] 02/23 (AFIB) March 30, 2025 11:2 [...] 1:02pm sob May 13, 2025 6:48 pm Chief Complaint Admit Date HYPOXIA February [...] see clinical note. May 07, 2025 1:02pm ACUTE HYPERCAPNIC RESP FAILURE, MILD HFP EF EXAC May 13, 2025 6:22pm ACUTE HYPERCAPNIC RESP FAILURE, MILD HFP EF EXAC May 14, 2025 8:18am ACUTE HYPERCAPNIC RESP FAILURE, MILD HFP EF EXAC May 15, 2025 1:16pm ACUTE HYPERCAPNIC RESP FAILURE, MILD HFP EF EXAC May 16, 2025 1:42pm ACUTE HYPERCAPNIC RESP FAILURE, MILD HFP EF EXAC May 17, 2025 11:13am Reason for Visit Admit Date Atrial flutter [...] pm Hypertension May 07, 2025 1:02 pm Acute on chronic heart failu re with preserved ejection fraction (HFpEF) May 13, 2025 6:22pm Acute and chronic respiratory failure wi th hypercapnia May 13, 2025 6:22pm Chief Complaint Admit Date HYPOXIA February 19, 2025 3:5 3pm Hypoxia February 20, 2025 8:0 7am Hypoxia February 21, 2025 11: 44am Hypoxia February 22, 2025 2:1 1pm Hypoxia February 23, 2025 1:2 2pm S/P [facility] 02/23 (AFIB) March 30, 2025 11:2 [...] see clinical note. May 07, 2025 1:02pm ACUTE HYPERCAPNIC RESP FAILURE, MILD HFP EF EXAC May 13, 2025 6:22pm ACUTE HYPERCAPNIC RESP FAILURE, MILD HFP EF EXAC May 14, 2025 8:18am ACUTE HYPERCAPNIC RESP FAILURE, MILD HFP EF EXAC May 15, 2025 1:16pm ACUTE HYPERCAPNIC RESP FAILURE, MILD HFP EF EXAC May 16, 2025 1:42pm ACUTE HYPERCAPNIC RESP FAILURE, MILD HFP EF EXAC May 17, 2025 11:13am 4 W FU June 08, 2025 2: 33pm Reason for Visit Admit Date Atrial flutter [...] pm Hypertension May 07, 2025 1:02 pm Acute and chronic respiratory failure wi th hypercapnia May 13, 2025 6:22pm Acute on chronic heart failu re with preserved ejection fraction (HFpEF) May 13, 2025 6:22pm 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, 2025 2: 33pm long-term current use of anticoagulant A ugust 2024 2:33pm Chief Complaint Admit Date S/P [facility] 02/23 (AFIB) March 30, 2025 11:2 [...] see clinical note. May 07, 2025 1:02pm ACUTE HYPERCAPNIC RESP FAILURE, MILD HFP EF EXAC May 13, 2025 6:22pm ACUTE HYPERCAPNIC RESP FAILURE, MILD HFP EF EXAC May 14, 2025 8:18am ACUTE HYPERCAPNIC RESP FAILURE, MILD HFP EF EXAC May 15, 2025 1:16pm ACUTE HYPERCAPNIC RESP FAILURE, MILD HFP EF EXAC May 16, 2025 1:42pm ACUTE HYPERCAPNIC RESP FAILURE, MILD HFP EF EXAC May 17, 2025 11:13am 4 W FU June 08, 2025 2: 33pm AFIB June 24, 2025 10 :36am Atrial fibrillation June 24, 2025 12 :37pm Atrial fibrillation June 24, 2025 12 :40pm Reason for Visit Admit Date Alcohol abuse March 30, 2025 11:24 am [...] pm Hypertension May 07, 2025 1:02 pm Acute and chronic respiratory failure wi th hypercapnia May 13, 2025 6:22pm Acute on chronic heart failu re with preserved ejection fraction (HFpEF) May 13, 2025 6:22pm 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, 2025 2: 33pm 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 May 07, 2025 1:02pm ACUTE HYPERCAPNIC RESP FAILURE, MILD HFP EF EXAC May 13, 2025 6:22pm ACUTE HYPERCAPNIC RESP FAILURE, MILD HFP EF EXAC May 14, 2025 8:18am ACUTE HYPERCAPNIC RESP FAILURE, MILD HFP EF EXAC May 15, 2025 1:16pm ACUTE HYPERCAPNIC RESP FAILURE, MILD HFP EF EXAC May 16, 2025 1:42pm ACUTE HYPERCAPNIC RESP FAILURE, MILD HFP EF EXAC May 17, 2025 11:13am 4 W FU June 08, 2025 2: 33pm AFIB June 24, 2025 10 :36am Atrial fibrillation June 24, 2025 12 :37pm Atrial fibrillation June 24, 2025 12 :40pm post DCCV EKG July 01, 2025 12:50pm Chief Complaint Admit Date PAFLUTTER W/RVR, ? ACUTE VIRAL SYNDROME April [...] see clinical note. May 07, 2025 1:02pm ACUTE HYPERCAPNIC RESP FAILURE, MILD HFP EF EXAC May 13, 2025 6:22pm ACUTE HYPERCAPNIC RESP FAILURE, MILD HFP EF EXAC May 14, 2025 8:18am ACUTE HYPERCAPNIC RESP FAILURE, MILD HFP EF EXAC May 15, 2025 1:16pm ACUTE HYPERCAPNIC RESP FAILURE, MILD HFP EF EXAC May 16, 2025 1:42pm ACUTE HYPERCAPNIC RESP FAILURE, MILD HFP EF EXAC May 17, 2025 11:13am 4 W FU June 08, 2025 2: 33pm AFIB June 24, 2025 10 :36am Atrial fibrillation June 24, 2025 12 :37pm Atrial fibrillation June 24, 2025 12 :40pm post DCCV EKG July 01, 2025 12:50pm medicine review July 30, 2025 11 :00am Reason for Visit Admit Date Atrial flutter with rapid ventricular re sponse April 23, 2025 9:51pm Atrial flutter May 07, 2025 1:02 pm Shortness of breath May 07, 2025 1:02 pm Hypertension May 07, 2025 1:02 pm Acute and chronic respiratory failure wi th hypercapnia May 13, 2025 6:22pm Acute on chronic heart failu re with preserved ejection fraction (HFpEF) May 13, 2025 6:22pm 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, 2025 2: 33pm long-term current use of anticoagulant A ugust 2024 2:33pm Atrial fibrillation July 30, 2025 11 :00am Encounter for monitoring anti-arrhythmic therapy July 30, 2025 11:00am Additional Source Comments INFORMATION SOURCE (unrecogn ized section and content) DATE CREATED AUTHOR 10/05/2018 [facility] DATE CREATED AUTHOR AUTHOR'S ORGANIZ ATION 05/16/2025 [facility] DATE CREATED AUTHOR AUTHOR'S ORGANIZ ATION 06/30/2025 [facility] DATE CREATED AUTHOR AUTHOR'S ORGANIZ ATION 08/06/2025 [facility] DATE CREATED AUTHOR AUTHOR'S ORGANIZ ATION 08/11/2025 [facility] Source Comments (unrecognize d section and content) In the event this informatio n is protected by the Federal Confidentiality of Alcohol and Drug Abuse Patient Records regulations: The Federal rules restrict any use of the information to criminally investigate or prosecute any alcohol or drug abuse patient.[facility]In the event this information is protected by the Federal Confidentiality of Alcohol and Drug Abuse Patient Records regulations: The Federal rules restrict any use of the information to criminally investigate or prosecute any alcohol or drug abuse patient.[facility] HospitalIn the event this information is protected by the Federal Confidentiality of Alcohol and Drug Abuse Patient Records regulations: The Federal rules restrict any use of the information to criminally investigate or prosecute any alcohol or drug abuse patient.[facility] HospitalIn the event this information is protected by the Federal Confidentiality of Alcohol and Drug Abuse Patient Records regulations: The Federal rules restrict any use of the information to criminally investigate or prosecute any alcohol or drug abuse patient.[facility] HospitalIn the event this information is protected by the Federal Confidentiality of Alcohol and Drug Abuse Patient Records regulations: The Federal rules restrict any use of the information to criminally investigate or prosecute any alcohol or drug abuse patient.[facility] HospitalIn the event this information is protected by the Federal Confidentiality of Alcohol and Drug Abuse Patient Records regulations: The Federal rules restrict any use of the information to criminally investigate or prosecute any alcohol or drug abuse patient.[facility] HospitalIn the event this information is protected by the Federal Confidentiality of Alcohol and Drug Abuse Patient Records regulations: The Federal rules restrict any use of the information to criminally investigate or prosecute any alcohol or drug abuse patient.[facility] HospitalIn the event this information is protected by the Federal Confidentiality of Alcohol and Drug Abuse Patient Records regulations: The Federal rules restrict any use of the information to criminally investigate or prosecute any alcohol or drug abuse patient.[facility] HospitalIn the event this information is protected by the Federal Confidentiality of Alcohol and Drug Abuse Patient Records regulations: The Federal rules restrict any use of the information to criminally investigate or prosecute any alcohol or drug abuse patient.[facility] HospitalIn the event this information is protected by the Federal Confidentiality of Alcohol and Drug Abuse Patient Records regulations: The Federal rules restrict any use of the information to criminally investigate or prosecute any alcohol or drug abuse patient.[facility] HospitalIn the event this information is protected by the Federal Confidentiality of Alcohol and Drug Abuse Patient Records regulations: The Federal rules restrict any use of the information to criminally investigate or prosecute any alcohol or drug abuse patient.[facility] HospitalIn the event this information is protected by the Federal Confidentiality of Alcohol and Drug Abuse Patient Records regulations: The Federal rules restrict any use of the information to criminally investigate or prosecute any alcohol or drug abuse patient.[facility] HospitalIn the event this information is protected by the Federal Confidentiality of Alcohol and Drug Abuse Patient Records regulations: The Federal rules restrict any use of the information to criminally investigate or prosecute any alcohol or drug abuse patient.[facility] HospitalIn the event this information is protected by the Federal Confidentiality of Alcohol and Drug Abuse Patient Records regulations: The Federal rules restrict any use of the information to criminally investigate or prosecute any alcohol or drug abuse patient.[facility] HospitalIn the event this information is protected by the Federal Confidentiality of Alcohol and Drug Abuse Patient Records regulations: The Federal rules restrict any use of the information to criminally investigate or prosecute any alcohol or drug abuse patient.[facility] HospitalIn the event this information is protected by the Federal Confidentiality of Alcohol and Drug Abuse Patient Records regulations: The Federal rules restrict any use of the information to criminally investigate or prosecute any alcohol or drug abuse patient.[facility] HospitalIn the event this information is protected by the Federal Confidentiality of Alcohol and Drug Abuse Patient Records regulations: The Federal rules restrict any use of the information to criminally investigate or prosecute any alcohol or drug abuse patient.[facility] HospitalIn the event this information is protected by the Federal Confidentiality of Alcohol and Drug Abuse Patient Records regulations: The Federal rules restrict any use of the information to criminally investigate or prosecute any alcohol or drug abuse patient.[facility] HospitalIn the event this information is protected by the Federal Confidentiality of Alcohol and Drug Abuse Patient Records regulations: The Federal rules restrict any use of the information to criminally investigate or prosecute any alcohol or drug abuse patient.[facility] HospitalIn the event this information is protected by the Federal Confidentiality of Alcohol and Drug Abuse Patient Records regulations: The Federal rules restrict any use of the information to criminally investigate or prosecute any alcohol or drug abuse patient.[facility] HospitalIn the event this information is protected by the Federal Confidentiality of Alcohol and Drug Abuse Patient Records regulations: The Federal rules restrict any use of the information to criminally investigate or prosecute any alcohol or drug abuse patient.[facility] HospitalIn the event this information is protected by the Federal Confidentiality of Alcohol and Drug Abuse Patient Records regulations: The Federal rules restrict any use of the information to criminally investigate or prosecute any alcohol or drug abuse patient.[facility] HospitalIn the event this information is protected by the Federal Confidentiality of Alcohol and Drug Abuse Patient Records regulations: The Federal rules restrict any use of the information to criminally investigate or prosecute any alcohol or drug abuse patient.[facility] HospitalIn the event this information is protected by the Federal Confidentiality of Alcohol and Drug Abuse Patient Records regulations: The Federal rules restrict any use of the information to criminally investigate or prosecute any alcohol or drug abuse patient.[facility] HospitalIn the event this information is protected by the Federal Confidentiality of Alcohol and Drug Abuse Patient Records regulations: The Federal rules restrict any use of the information to criminally investigate or prosecute any alcohol or drug abuse patient.[facility] HospitalIn the event this information is protected by the Federal Confidentiality of Alcohol and Drug Abuse Patient Records regulations: The Federal rules restrict any use of the information to criminally investigate or prosecute any alcohol or drug abuse patient.[facility] HospitalIn the event this information is protected by the Federal Confidentiality of Alcohol and Drug Abuse Patient Records regulations: The Federal rules restrict any use of the information to criminally investigate or prosecute any alcohol or drug abuse patient.[facility] HospitalIn the event this information is protected by the Federal Confidentiality of Alcohol and Drug Abuse Patient Records regulations: The Federal rules restrict any use of the information to criminally investigate or prosecute any alcohol or drug abuse patient.[facility] HospitalIn the event this information is protected by the Federal Confidentiality of Alcohol and Drug Abuse Patient Records regulations: The Federal rules restrict any use of the information to criminally investigate or prosecute any alcohol or drug abuse patient.[facility] HospitalIn the event this information is protected by the Federal Confidentiality of Alcohol and Drug Abuse Patient Records regulations: The Federal rules restrict any use of the information to criminally investigate or prosecute any alcohol or drug abuse patient.[facility] HospitalIn the event this information is protected by the Federal Confidentiality of Alcohol and Drug Abuse Patient Records regulations: The Federal rules restrict any use of the information to criminally investigate or prosecute any alcohol or drug abuse patient.[facility] HospitalIn the event this information is protected by the Federal Confidentiality of Alcohol and Drug Abuse Patient Records regulations: The Federal rules restrict any use of the information to criminally investigate or prosecute any alcohol or drug abuse patient.[facility] HospitalIn the event this information is protected by the Federal Confidentiality of Alcohol and Drug Abuse Patient Records regulations: The Federal rules restrict any use of the information to criminally investigate or prosecute any alcohol or drug abuse patient.[facility] HospitalIn the event this information is protected by the Federal Confidentiality of Alcohol and Drug Abuse Patient Records regulations: The Federal rules restrict any use of the information to criminally investigate or prosecute any alcohol or drug abuse patient.[facility] HospitalIn the event this information is protected by the Federal Confidentiality of Alcohol and Drug Abuse Patient Records regulations: The Federal rules restrict any use of the information to criminally investigate or prosecute any alcohol or drug abuse patient.[facility] HospitalIn the event this information is protected by the Federal Confidentiality of Alcohol and Drug Abuse Patient Records regulations: The Federal rules restrict any use of the information to criminally investigate or prosecute any alcohol or drug abuse patient.[facility] HospitalIn the event this information is protected by the Federal Confidentiality of Alcohol and Drug Abuse Patient Records regulations: The Federal rules restrict any use of the information to criminally investigate or prosecute any alcohol or drug abuse patient.[facility] HospitalIn the event this information is protected by the Federal Confidentiality of Alcohol and Drug Abuse Patient Records regulations: The Federal rules restrict any use of the information to criminally investigate or prosecute any alcohol or drug abuse patient.[facility] HospitalIn the event this information is protected by the Federal Confidentiality of Alcohol and Drug Abuse Patient Records regulations: The Federal rules restrict any use of the information to criminally investigate or prosecute any alcohol or drug abuse patient.[facility] HospitalIn the event this information is protected by the Federal Confidentiality of Alcohol and Drug Abuse Patient Records regulations: The Federal rules restrict any use of the information to criminally investigate or prosecute any alcohol or drug abuse patient.[facility] HospitalIn the event this information is protected by the Federal Confidentiality of Alcohol and Drug Abuse Patient Records regulations: The Federal rules restrict any use of the information to criminally investigate or prosecute any alcohol or drug abuse patient.[facility] HospitalIn the event this information is protected by the Federal Confidentiality of Alcohol and Drug Abuse Patient Records regulations: The Federal rules restrict any use of the information to criminally investigate or prosecute any alcohol or drug abuse patient.[facility] HospitalIn the event this information is protected by the Federal Confidentiality of Alcohol and Drug Abuse Patient Records regulations: The Federal rules restrict any use of the information to criminally investigate or prosecute any alcohol or drug abuse patient.[facility] HospitalIn the event this information is protected by the Federal Confidentiality of Alcohol and Drug Abuse Patient Records regulations: The Federal rules restrict any use of the information to criminally investigate or prosecute any alcohol or drug abuse patient.[facility] HospitalIn the event this information is protected by the Federal Confidentiality of Alcohol and Drug Abuse Patient Records regulations: The Federal rules restrict any use of the information to criminally investigate or prosecute any alcohol or drug abuse patient.[facility] HospitalIn the event this information is protected by the Federal Confidentiality of Alcohol and Drug Abuse Patient Records regulations: The Federal rules restrict any use of the information to criminally investigate or prosecute any alcohol or drug abuse patient.[facility] HospitalIn the event this information is protected by the Federal Confidentiality of Alcohol and Drug Abuse Patient Records regulations: The Federal rules restrict any use of the information to criminally investigate or prosecute any alcohol or drug abuse patient.[facility] HospitalIn the event this information is protected by the Federal Confidentiality of Alcohol and Drug Abuse Patient Records regulations: The Federal rules restrict any use of the information to criminally investigate or prosecute any alcohol or drug abuse patient.[facility] HospitalIn the event this information is protected by the Federal Confidentiality of Alcohol and Drug Abuse Patient Records regulations: The Federal rules restrict any use of the information to criminally investigate or prosecute any alcohol or drug abuse patient.[facility] HospitalIn the event this information is protected by the Federal Confidentiality of Alcohol and Drug Abuse Patient Records regulations: The Federal rules restrict any use of the information to criminally investigate or prosecute any alcohol or drug abuse patient.[facility] HospitalIn the event this information is protected by the Federal Confidentiality of Alcohol and Drug Abuse Patient Records regulations: The Federal rules restrict any use of the information to criminally investigate or prosecute any alcohol or drug abuse patient.[facility] HospitalIn the event this information is protected by the Federal Confidentiality of Alcohol and Drug Abuse Patient Records regulations: The Federal rules restrict any use of the information to criminally investigate or prosecute any alcohol or drug abuse patient.[facility] HospitalIn the event this information is protected by the Federal Confidentiality of Alcohol and Drug Abuse Patient Records regulations: The Federal rules restrict any use of the information to criminally investigate or prosecute any alcohol or drug abuse patient.[facility] HospitalIn the event this information is protected by the Federal Confidentiality of Alcohol and Drug Abuse Patient Records regulations: The Federal rules restrict any use of the information to criminally investigate or prosecute any alcohol or drug abuse patient.[facility] HospitalIn the event this information is protected by the Federal Confidentiality of Alcohol and Drug Abuse Patient Records regulations: The Federal rules restrict any use of the information to criminally investigate or prosecute any alcohol or drug abuse patient.[facility] HospitalIn the event this information is protected by the Federal Confidentiality of Alcohol and Drug Abuse Patient Records regulations: The Federal rules restrict any use of the information to criminally investigate or prosecute any alcohol or drug abuse patient.[facility] HospitalIn the event this information is protected by the Federal Confidentiality of Alcohol and Drug Abuse Patient Records regulations: The Federal rules restrict any use of the information to criminally investigate or prosecute any alcohol or drug abuse patient.[facility] HospitalIn the event this information is protected by the Federal Confidentiality of Alcohol and Drug Abuse Patient Records regulations: The Federal rules restrict any use of the information to criminally investigate or prosecute any alcohol or drug abuse patient.[facility] HospitalIn the event this information is protected by the Federal Confidentiality of Alcohol and Drug Abuse Patient Records regulations: The Federal rules restrict any use of the information to criminally investigate or prosecute any alcohol or drug abuse patient.[facility] HospitalIn the event this information is protected by the Federal Confidentiality of Alcohol and Drug Abuse Patient Records regulations: The Federal rules restrict any use of the information to criminally investigate or prosecute any alcohol or drug abuse patient.[facility] HospitalIn the event this information is protected by the Federal Confidentiality of Alcohol and Drug Abuse Patient Records regulations: The Federal rules restrict any use of the information to criminally investigate or prosecute any alcohol or drug abuse patient.[facility] HospitalIn the event this information is protected by the Federal Confidentiality of Alcohol and Drug Abuse Patient Records regulations: The Federal rules restrict any use of the information to criminally investigate or prosecute any alcohol or drug abuse patient.[facility] HospitalIn the event this information is protected by the Federal Confidentiality of Alcohol and Drug Abuse Patient Records regulations: The Federal rules restrict any use of the information to criminally investigate or prosecute any alcohol or drug abuse patient.[facility] HospitalIn the event this information is protected by the Federal Confidentiality of Alcohol and Drug Abuse Patient Records regulations: The Federal rules restrict any use of the information to criminally investigate or prosecute any alcohol or drug abuse patient.[facility] HospitalIn the event this information is protected by the Federal Confidentiality of Alcohol and Drug Abuse Patient Records regulations: The Federal rules restrict any use of the information to criminally investigate or prosecute any alcohol or drug abuse patient.[facility] HospitalIn the event this information is protected by the Federal Confidentiality of Alcohol and Drug Abuse Patient Records regulations: The Federal rules restrict any use of the information to criminally investigate or prosecute any alcohol or drug abuse patient.[facility] HospitalIn the event this information is protected by the Federal Confidentiality of Alcohol and Drug Abuse Patient Records regulations: The Federal rules restrict any use of the information to criminally investigate or prosecute any alcohol or drug abuse patient.[facility] HospitalIn the event this information is protected by the Federal Confidentiality of Alcohol and Drug Abuse Patient Records regulations: The Federal rules restrict any use of the information to criminally investigate or prosecute any alcohol or drug abuse patient.[facility] HospitalIn the event this information is protected by the Federal Confidentiality of Alcohol and Drug Abuse Patient Records regulations: The Federal rules restrict any use of the information to criminally investigate or prosecute any alcohol or drug abuse patient.[facility] HospitalIn the event this information is protected by the Federal Confidentiality of Alcohol and Drug Abuse Patient Records regulations: The Federal rules restrict any use of the information to criminally investigate or prosecute any alcohol or drug abuse patient.[facility] HospitalIn the event this information is protected by the Federal Confidentiality of Alcohol and Drug Abuse Patient Records regulations: The Federal rules restrict any use of the information to criminally investigate or prosecute any alcohol or drug abuse patient.[facility] HospitalIn the event this information is protected by the Federal Confidentiality of Alcohol and Drug Abuse Patient Records regulations: The Federal rules restrict any use of the information to criminally investigate or prosecute any alcohol or drug abuse patient.[facility] HospitalIn the event this information is protected by the Federal Confidentiality of Alcohol and Drug Abuse Patient Records regulations: The Federal rules restrict any use of the information to criminally investigate or prosecute any alcohol or drug abuse patient.[facility] HospitalIn the event this information is protected by the Federal Confidentiality of Alcohol and Drug Abuse Patient Records regulations: The Federal rules restrict any use of the information to criminally investigate or prosecute any alcohol or drug abuse patient.[facility] HospitalIn the event this information is protected by the Federal Confidentiality of Alcohol and Drug Abuse Patient Records regulations: The Federal rules restrict any use of the information to criminally investigate or prosecute any alcohol or drug abuse patient.[facility] HospitalIn the event this information is protected by the Federal Confidentiality of Alcohol and Drug Abuse Patient Records regulations: The Federal rules restrict any use of the information to criminally investigate or prosecute any alcohol or drug abuse patient.[facility] HospitalIn the event this information is protected by the Federal Confidentiality of Alcohol and Drug Abuse Patient Records regulations: The Federal rules restrict any use of the information to criminally investigate or prosecute any alcohol or drug abuse patient.[facility] Reason for Visit (unrecogniz ed section and content) Reason Comments Follow Up 3 months Specialty Diagnoses / Procedures Referred By Marcy boudreaux Referred To Contact FAMILY MEDICINE Diagnoses 3 mo OV Procedures 3Mo OV Phuc Martines, DO [address] [place] [address] [facility] [address] [place] [address] Referral ID Status Reason Start Date Expiration Date Visits Requested Visits Authorized [id number] Pending Review OON/Self Pay Override 12/01/2021 03/01/2022 1 1 Reason Comments Established Patient Specialty Diagnoses / Procedures Referred By Contac t Referred To [facility] [place] Diagnoses Breathing Issues Procedures Consult to Pulmonary Self [facility] [place] [address] [place] [address] Referral ID Status Reason Start Date Expiration Date Visits Requested Visits Authorized [id number] Outside PCP OON/Self Pay Override 02/05/2022 05/06/2022 1 1 Reason Onset Date Comments Refill Request 03/07/2022 Reason Comments Spirometry Specialty Diagnoses / Procedures Referred By Contac t Referred To [facility] Diagnoses Chronic obstructive pulmonary disease, unspecified COPD type (HCC) Procedures SPIROMETRY BASELINE ONLY SPMTRY W/VC EXPIRATORY MARTIN W/WO MXML VOL VNTJ Hodan Christine PA-C [address] [place] [address] [facility] [place] [address] [place] [address] Referral ID Status Reason Start Date Expiration Date V isits Requested Visits Authorized [id number] Closed Auto-Generate d Referral OON/Self Pay Override 02/09/2022 03/11/2023 1 1 Specialty Diagnoses / Procedures Referred By Contac t Referred To [facility] [place] Diagnoses Chronic obstructive pulmonary disease, unspecified COPD type (HCC) Procedures OXIMETRY WITH AMBULATION NONINVASIVE EAR/PULSE OXIMETRY MULTIPLE DETER Hodan Christine PA-C [address] [place] [address] [address] [address] Referral ID Status Reason Start Date Expiration Date V isits Requested Visits Authorized [id number] Closed Auto-Generate d Referral OON/Self Pay Override 02/09/2022 03/11/2023 1 1 Reason Comments Established Patient 6 week follow up Specialty Diagnoses / Procedures Referred By Contac t Referred To Contact PULMONARY MEDICINE Diagnoses office visit Procedures office visit Hodan Christine PA-C [address] [place] [address] [facility] [address] [place] [address] Referral ID Status Reason Start Date Expiration Date Visits Requested Visits Authorized [id number] Pending Review OON/Self Pay Override 02/09/2022 05/10/2022 1 1 Reason Comments Orders Reason Onset Date Comments F/U 3 Month Immunizations 08/01/2022 Flu vaccination Specialty Diagnoses / Procedures Referred By Contac t Referred To Contact INTERNAL MEDICINE Diagnoses 3 month follow up Procedures 4c est Phcu Martines L, DO [address] [place] [address] [facility] [address] [place] [address] Referral ID Status Reason Start Date Expiration Date Visits Requested Visits Authorized [id number] Pending Review OON/Self Pay Override 05/01/2022 08/26/2022 [...] EAR/PULSE OXIMETRY MULTIPLE DETER Hodan Christine PA-C [address] [place] [address] [facility] [place] [address] [place] [address] Referral ID Status Reason Start Date Expiration Date V isits Requested Visits Authorized [id number] Closed Auto-Generate d Referral 05/30/2023 06/28/2024 1 [...] W/O CNTRST Phuc Martines L, DO [address] [place] [address] [facility] [place] [address] Referral ID Status Reason Start Date Expiration Date V isits Requested Visits Authorized [id number] Closed Auto-Generate d Referral 08/01/2022 08/31/2023 1 1 Reason Comments Radiology US Specialty Diagnoses / Procedures Referred By Contac t Referred To Contact US IMAGING Diagnoses Cyst of spleen Procedures US ABD SPLEEN US ABDOMINAL REAL TIME W/IMAGE LIMITED Pratibha King, CHILD CARE CENTER ASSISTANT DIRECTOR.PRACTICE NURSE [address] [place] [address] [facility] [place] [address] Referral ID Status Reason Start Date Expiration Date Visits Requested Visits Authorized [id number] Pending Review Auto-Generat ed Referral 08/30/2022 09/29/2023 1 1 Reason Comments Forms Reason Comments Radiology CT Specialty Diagnoses / Procedures Referred By Contac t Referred To Contact CT IMAGING Diagnoses Former cigarette smoker Procedures CT LUNG SCREEN WO IVCON COMPUTED TOMOGRAPHY THORAX LW DOSE LNG CA SCR Suleiman- Maricruz Camp, CHILD CARE CENTER ASSISTANT DIRECTOR.PRACTICE NURSE [address] [place] [id number] [facility] [place] [address] Referral ID Status Reason Start Date Expiration Date V isits Requested Visits Authorized [id number] Closed Auto-Generate d Referral 09/17/2023 10/16/2024 1 [...] DOSE LNG CA SCR C- Maricruz Camp, CHILD CARE CENTER ASSISTANT DIRECTOR.PRACTICE NURSE [address] [place] [phone] [facility] [place] [address] Referral ID Status Reason Start Date Expiration Date V isits Requested Visits Authorized [id number] Closed Auto-Generate d Referral 10/11/2023 11/09/2024 1 [...] WO IVCON DIAGNOSTIC COMPUTED TOMOGRAPHY THORAX W/O Maricruz Howard, CHILD CARE CENTER ASSISTANT DIRECTOR.PRACTICE NURSE [address] [place] [address] Phone: tel: fax: [facility] [place] [address] Referral ID Status Reason Start Date Expiration Date V isits Requested Visits Authorized [id number] Closed Auto-Generate d Referral 12/26/2024 11/18/2025 1 1 Specialty Diagnoses / Procedures Referred By Contac t Referred To Contact CT IMAGING Diagnoses Lung nodules Procedures CT LUNG FOLLOWUP WO IVCON DIAGNOSTIC COMPUTED TOMOGRAPHY THORAX W/O CNTRSMaricruz Rangel, CHILD CARE CENTER ASSISTANT DIRECTOR.PRACTICE NURSE [address] [place] [address] Phone: tel: fax: [place] [address] Referral ID Status Reason Start Date Expiration Date V isits Requested Visits Authorized [id number] Closed Auto-Generate d Referral 12/26/2024 11/18/2025 1 1 Reason Comments Hospital F/U [facility] COPD Reason Comments Hospital F/U Reason Comments BP Check Had appointment with cardiology yesterday; G Dr. Elena Reason Comments Skin Rashes x 2 days mouth and n ose thick mucous x 1 week Reason Onset Date Comments Results 04/22/2025 Reason Comments increased confusion PT WAS PLACED O A NE W MEDS FOR HEART FLUTTER NOT SURE IF THIS COULD BE A SIDE EFFECT FROM MEDICATION Reason Comments Hospital F/U Reason Comments Atrial Flutter COPD Oxygen dependent Hypertension Hyperlipidemia Specialty Diagnoses / Procedures Referred By Contact Referred To Contact Electrophysiology / Cardiology Diagnoses Typical atrial flutter (HCC) Procedures AR OFFICE/OP CONSLTJ NEW/EST PT MOD MDM 40 MINUTES Reza Elena MD [address] [facility] [address] [place] [address] Phone: tel:[phone] fax:[phone] Jaden Newton MD [address] [facility] [address] [place] [address] Phone: tel:[phone] fax:[phone] Referral ID Status Reason Start Date Expiration Date Visits Re quested Visits Authorized [id number] Closed 04/06/2025 04/06/2026 1 1 Reason Onset Date Comments Refill Request 06/14/2025 Reason Comments Orders NIV Care Teams (unrecognized sec tion and content) Geophysical Manager Relationship Specialty Start Date End Date Phuc Martines DO [address] [place] [address] PCP - General Family Practice 11/09/15 Geophysical Manager Relationship Specialty Start Date End Date Phuc Martines DO [address] [place] [address] PCP - General Family Practice 11/09/15 Geophysical Manager Relationship Specialty Start Date End Date Phuc Martines DO [address] [place] [address] PCP - General Family Practice 11/09/15 Geophysical Manager Relationship Specialty Start Date End Date Phuc Martines DO [address] [place] [address] PCP - General Family Practice 11/09/15 Geophysical Manager Relationship Specialty Start Date End Date Martines, Phuc L, DO [address] [place] [address] PCP - General Family Practice 11/09/15 Geophysical Manager Relationship Specialty Start Date End Date Phuc Martines, DO [address] [place] [address] PCP - General Family Practice 11/09/15 Geophysical Manager Relationship Specialty Start Date End Date Phuc Martines, DO [address] [place] [address] PCP - General Family Practice 11/09/15 Geophysical Manager Relationship Specialty Start Date End Date Phuc Martines, DO [address] [place] [address] PCP - General Family Practice 11/09/15 Geophysical Manager Relationship Specialty Start Date End Date Phuc Martines, DO [address] [place] [address] PCP - General Family Medicine 11/09/15 Geophysical Manager Relationship Specialty Start Date End Date Phuc Martines, DO [address] [place] [address] PCP - General Family Medicine 11/09/15 Geophysical Manager Relationship Specialty Start Date End Date Phuc Martines, DO [address] [place] [address] PCP - General Family Medicine 11/09/15 Geophysical Manager Relationship Specialty Start Date End Date Phuc Martines, DO [address] [place] [address] PCP - General Family Medicine 11/09/15 Geophysical Manager Relationship Specialty Start Date End Date Phuc Martines, DO [address] [place] [address] PCP - General Family Medicine 11/09/15 Geophysical Manager Relationship Specialty Start Date End Date Phuc Martines, DO [address] [place] [address] PCP - General Family Medicine 11/09/15 Geophysical Manager Relationship Specialty Start Date End Date Puhc Martines, DO [address] [place] [address] PCP - General Family Medicine 11/09/15 Geophysical Manager Relationship Specialty Start Date End Date Phuc Martines, DO [address] [place] [address] PCP - General Family Medicine 11/09/15 Geophysical Manager Relationship Specialty Start Date End Date Phuc Martines, DO [address] [place] [address] PCP - General Family Medicine 11/09/15 Geophysical Manager Relationship Specialty Start Date End Date Phuc Martines, DO [address] [place] [address] PCP - General Family Medicine 11/09/15 Geophysical Manager Relationship Specialty Start Date End Date Phuc Martiens DO [address] [place] [address] PCP - General Family Medicine 11/09/15 Geophysical Manager Relationship Specialty Start Date End Date Phuc Martines DO [address] [place] [address] PCP - General Family Medicine 11/09/15 Geophysical Manager Relationship Specialty Start Date End Date Phuc Martines DO [address] [place] [address] PCP - General Family Medicine 11/09/15 Geophysical Manager Relationship Specialty Start Date End Date Phuc Martines DO [address] [place] [address] PCP - General Family Medicine 11/09/15 Geophysical Manager Relationship Specialty Start Date End Date Phuc Martines DO [address] [facility] [place] [address] PCP - General Family Medicine 11/09/15 Geophysical Manager Relationship Specialty Start Date End Date Phuc Martines DO [address] [facility] [place] [address] PCP - General Family Medicine 11/09/15 Geophysical Manager Relationship Specialty Start Date End Date Phuc Martines DO [address] [facility] [place] [address] PCP - General Family Medicine 11/09/15 Geophysical Manager Relationship Specialty Start Date End Date Phuc Martines DO [address] [facility] [place] [address] PCP - General Family Medicine 11/09/15 Geophysical Manager Relationship Specialty Start Date End Date Phuc Martines DO [address] [facility] [place] [address] PCP - General Family Medicine 11/09/15 Geophysical Manager Relationship Specialty Start Date End Date Phuc Martines DO [address] [facility] [place] [address] PCP - General Family Medicine 11/09/15 Geophysical Manager Relationship Specialty Start Date End Date Phuc Martines DO [address] [facility] [place] [address] PCP - General Family Medicine 11/09/15 Geophysical Manager Relationship Specialty Start Date End Date Phuc Martines DO [address] [facility] [place] [address] PCP - General Family Medicine 11/09/15 Geophysical Manager Relationship Specialty Start Date End Date Phuc Martines DO [address] [facility] [address] PCP - General Family Medicine 11/09/15 Hodan Christine PA-C [address] [place] [address] Pulmonary and Critical Care Medicine 10/11/23 Geophysical Manager Relationship Specialty Start Date End Date Phuc Martines DO [address] [facility] [place] [address] PCP - General Family Medicine 11/09/15 Hodan Christine, PA-C [address] [place] [address] Pulmonary and Critical Care Medicine 10/11/23 Geophysical Manager Relationship Specialty Start Date End Date Phuc Martines, [address] [facility] [place] [address] PCP - General Family Medicine 11/09/15 Hodan Christine, PA-C [address] [place] [address] Pulmonary and Critical Care Medicine 10/11/23 Geophysical Manager Relationship Specialty Start Date End Date Phuc Martines DO [address] [facility] [place] [address] PCP - General Family Medicine 11/09/15 Hodan Christine, PA-C [address] [place] [address] Pulmonary and Critical Care Medicine 10/11/23 Geophysical Manager Relationship Specialty Start Date End Date Phuc Martines DO [address] [facility] [place] [address] PCP - General Family Medicine 11/09/15 Hodan Christine PA-C [address] [place] [address] Pulmonary and Critical Care Medicine 10/11/23 Geophysical Manager Relationship Specialty Start Date End Date Phuc Martines DO [address] [facility] [place] [address] PCP - General Family Medicine 11/09/15 Hodan Christine PA-C [address] [place] [address] Pulmonary and Critical Care Medicine 10/11/23 Geophysical Manager Relationship Specialty Start Date End Date Phuc Martines DO [address] [facility] [place] [address] PCP - General Family Medicine 11/09/15 Hodan Christine, PA-C [address] [place] [address] Pulmonary and Critical Care Medicine 10/11/23 Geophysical Manager Relationship Specialty Start Date End Date Phuc Martines DO [address] [facility] [place] [address] PCP - General Family Medicine 11/09/15 Geophysical Manager Relationship Specialty Start Date End Date Phuc Martines DO [address] [facility] [place] [address] PCP - General Family Medicine 11/09/15 Geophysical Manager Relationship Specialty Start Date End Date Phuc Martines DO [address] [facility] [place] [address] PCP - General Family Medicine 11/09/15 Hodan Christine PA-C [address] [place] [address] Pulmonary and Critical Care Medicine 10/11/23 Geophysical Manager Relationship Specialty Start Date End Date Phuc Martines, [address] [facility] [place] [address] PCP - General Family Medicine 11/09/15 Hodan Christine, PA-C [address] [place] [address] Pulmonary and Critical Care Medicine 10/11/23 Vicky Duong, JAKI.PRACTICE NURSE [address] [facility] [place] [address] [facility] 10/04/24 Pratibha King APRN.PRACTICE NURSE [address] [facility] [place] [address] [facility] Family [facility] 10/04/24 Geophysical Manager Relationship Specialty Start Date End Date Phuc Martines DO [address] [facility] [place] [address] PCP - General Family Medicine 11/09/15 Hodan Christine, PA-C [address] [place] [address] [facility] 10/11/23 Vicky Duong, CHILD CARE CENTER ASSISTANT DIRECTOR.PRACTICE NURSE [address] [place] [address] [facility] 10/04/24 [facility], CHILD CARE CENTER ASSISTANT DIRECTOR.PRACTICE NURSE [address] [place] [address] [facility] 10/04/24 Geophysical Manager Relationship Specialty Start Date End Date Phuc Martines DO [address] [place] [address] PCP - General Family Medicine 11/09/15 Hodan Christine PA-C [address] [place] [address] [facility] 10/11/23 Vicky Duong, CHILD CARE CENTER ASSISTANT DIRECTOR.PRACTICE NURSE [address] [place] [address] [facility] 10/04/24 [facility], CHILD CARE CENTER ASSISTANT DIRECTOR.PRACTICE NURSE [address] [place] [address] [facility] 10/04/24 Geophysical Manager Relationship Specialty Start Date End Date Phuc Martines DO [address] [place] [address] PCP - General Family Medicine 11/09/15 Hodan Christine PA-C [address] [place] [address] Pul[facility] Medicine 10/11/23 Vicky Duong, JAKI.PRACTICE NURSE [address] [place] [address] [facility] 10/04/24 FernandoPratibha, CHILD CARE CENTER ASSISTANT DIRECTOR.PRACTICE NURSE [address] [place] [address] [facility] 10/04/24 Geophysical Manager Relationship Specialty Start Date End Date Phuc Martines DO [address] [place] [address] PCP - General Family Medicine 11/09/15 Hodan Christine PA-C [address] [place] [address] [facility] 10/11/23 Vicky Duong, CHILD CARE CENTER ASSISTANT DIRECTOR.PRACTICE NURSE [address] [place] [address] [facility] 10/04/24 FernandoPratibha, CHILD CARE CENTER ASSISTANT DIRECTOR.PRACTICE NURSE [address] [place] [address] [facility] 10/04/24 Geophysical Manager Relationship Specialty Start Date End Date Phuc Martines DO [address] [place] [address] PCP - General Family Medicine 11/09/15 Hodan Christine PA-C [address] [place] [address] [facility] 10/11/23 Vicky Duong, CHILD CARE CENTER ASSISTANT DIRECTOR.PRACTICE NURSE [address] [place] [address] [facility] 10/04/24 FernandoPratibha, CHILD CARE CENTER ASSISTANT DIRECTOR.PRACTICE NURSE [address] [place] [address] [facility] 10/04/24 Geophysical Manager Relationship Specialty Start Date End Date Phuc Martines DO [address] [place] [address] PCP - General Family Medicine 11/09/15 Hodan Christine PA-C [address] [place] [address] [facility] Medicine 10/11/23 Vicky Duong, CHILD CARE CENTER ASSISTANT DIRECTOR.PRACTICE NURSE [address] [place] [address] [facility] 10/04/24 FernandoPratibha, CHILD CARE CENTER ASSISTANT DIRECTOR.PRACTICE NURSE [address] [place] [address] [facility] 10/04/24 Geophysical Manager Relationship Specialty Start Date End Date Phuc Martines DO [address] [place] [address] PCP - General Family Medicine 11/09/15 Hodan Christine PA-C [address] [place] [address] [facility] 10/11/23 Vicky Duong, CHILD CARE CENTER ASSISTANT DIRECTOR.PRACTICE NURSE [address] [place] [address] [facility] 10/04/24 FernandoPratibha, CHILD CARE CENTER ASSISTANT DIRECTOR.PRACTICE NURSE [address] [place] [address] [facility] 10/04/24 Geophysical Manager Relationship Specialty Start Date End Date Phuc Martines DO [address] [place] [address] PCP - General Family Medicine 11/09/15 Hodan Christine PA-C [address] [place] [address] [facility] 10/11/23 Vicky Duong, CHILD CARE CENTER ASSISTANT DIRECTOR.PRACTICE NURSE [address] [place] [address] [facility] 10/04/24 FernandoPratibha, CHILD CARE CENTER ASSISTANT DIRECTOR.PRACTICE NURSE [address] [place] [address] [facility] 10/04/24 Geophysical Manager Relationship Specialty Start Date End Date Phuc Martines DO [address] [place] [address] PCP - General Family Medicine 11/09/15 Hodan Christine PA-C [address] [place] [address] Pulmonary [facility] Care Medicine 10/11/23 [facility], CHILD CARE CENTER ASSISTANT DIRECTOR.PRACTICE NURSE [address] [facility] [place] [address] [facility] 10/04/24 Geophysical Manager Relationship Specialty Start Date End Date Phuc Martines DO [address] [facility] [place] [address] PCP - General Family Medicine 11/09/15 Hodan Christine, PA-C [address] [place] [place] [address] Pulmonary and Critical Care Medicine 10/11/23 [facility], CHILD CARE CENTER ASSISTANT DIRECTOR.PRACTICE NURSE [address] [facility] [place] [address] [facility] 10/04/24 Geophysical Manager Relationship Specialty Start Date End Date Phuc Martines DO [address] [facility] [place] [address] PCP - General Family Medicine 11/09/15 Hodan Christine, PA-C [address] [place] [place] [address] Pulmonary and Critical Care Medicine 10/11/23 [facility], CHILD CARE CENTER ASSISTANT DIRECTOR.PRACTICE NURSE [address] [facility] [place] [address] [facility] 10/04/24 Geophysical Manager Relationship Specialty Start Date End Date Phuc Martines DO [address] [facility] [place] [address] PCP - General Family Medicine 11/09/15 Hodan Christine PA-C [address] [place] [address] Pulmonary and Critical Care Medicine 10/11/23 Pratibha King CHILD CARE CENTER ASSISTANT DIRECTOROliviaPRACTICE NURSE [address] [facility] [place], [place] [address] [facility] 10/04/24 Team Status: Active Member [...] Provider Active Start : February 23, 2025 Geophysical Manager Relationship Specialty Start Date End Date Phuc Martines DO [address] [place] [address] PCP - General Family Medicine 11/09/15 Hodan Christine PA-C [address] [place] [address] Pulmonary and Critical Care Medicine 10/11/23 Pratibha King, JAKI.PRACTICE NURSE [address] [place] [address] [facility] Geophysical Manager Relationship Specialty Start Date End Date Phuc Martines DO [address] [place] [address] PCP - General Family Medicine 11/09/15 Hodan Christine, JACKELINEC [address] [place] [address] Pulmonary and Critical Care Medicine 10/11/23 Pratibha King, CHILD CARE CENTER ASSISTANT DIRECTOR.PRACTICE NURSE [address] [place] [address] [facility] 10/04/24 Geophysical Manager Relationship Specialty Start Date End Date Phuc Martines DO [address] [place] [address] PCP - General Family Medicine 11/09/15 Hodan Chrsitine PA-C [address] [place] [address] Pulmonary and Critical Care Medicine 10/11/23 Pratibha King, CHILD CARE CENTER ASSISTANT DIRECTOR.PRACTICE NURSE [address] [place] [address] [facility] 10/04/24 Geophysical Manager Relationship Specialty Start Date End Date Phuc Martines DO [address] [place] [address] PCP - General [facility] Medicine 11/09/15 Hodan Christine PA-C [address] [place] [address] Pulmonary and Critical Care Medicine 10/11/23 [facility], CHILD CARE CENTER ASSISTANT DIRECTOR.PRACTICE NURSE [address] [place] [address] [facility] 10/04/24 Geophysical Manager Relationship Specialty Start Date End Date Phuc Martines DO [address] [facility] [place] [address] PCP - [facility] 11/09/15 Hodan Christine PA-C [address] [place] [address] Pulmonary and Critical Care Medicine 10/11/23 [facility], CHILD CARE CENTER ASSISTANT DIRECTOR.PRACTICE NURSE [address] [place] [address] [facility] 10/04/24 Team Status: Inactive Member Role Status Dates Dr. Phuc Martines DO Primary Care Provider Active Start: March 30, 2025 End: March 30, 2025 Dr. Phuc Martines DO Referring Provider Active Start: March 30, 2025 End: March 30, 2025 Dr. Reza Elena MD Attending Provider Active Start: March 30, 2025 End: March 30, 2025 Geophysical Manager Relationship Specialty Start Date End Date Phuc Martines DO [address] [facility] [place] [address] PCP - [facility] 11/09/15 Hodan Christine PA-C [address] [place] [address] Pulmonary and Critical Care Medicine 10/11/23 Pratibha King, CHILD CARE CENTER ASSISTANT DIRECTOR.PRACTICE NURSE [address] [place] [address] [facility] 10/04/24 Tyra Carson, CHILD CARE CENTER ASSISTANT DIRECTOR.PRACTICE NURSE [address] [place] [address] [facility] 04/12/25 Geophysical Manager Relationship Specialty Start Date End Date Phuc Martines DO [address] [place] [address] PCP - General Family Medicine 11/09/15 Hodan Christine PA-C [address] [place] [address] Pulmonary and Critical Care Medicine 10/11/23 Pratibha King, CHILD CARE CENTER ASSISTANT DIRECTOR.PRACTICE NURSE [address] [place] [address] [facility] 10/04/24 Tyra Carson, CHILD CARE CENTER ASSISTANT DIRECTOR.PRACTICE NURSE [address] [place] [address] [facility] 04/12/25 Geophysical Manager Relationship Specialty Start Date End Date Phuc Martines DO [address] [place] [address] PCP - General Family Medicine 11/09/15 Hodan Christine PA-C [address] [place], [place] [address] [facility] 10/11/23 Pratibha King, CHILD CARE CENTER ASSISTANT DIRECTOR.PRACTICE NURSE [address] [place] [address] [facility] 10/04/24 Tyra Carson, CHILD CARE CENTER ASSISTANT DIRECTOR.PRACTICE NURSE [address] [place] [address] [facility] 04/12/25 Team Status: Active Member Role/Relationship Status [...] Active Start: February 20, 2025 Dr. Kym Nroton MD Admit Provider Active Star t: February [...] February 21, 2025 Dr. Linwood Ivy , Emergency Provider Active Start: February 21, 2025 [...] 30, 2025 End: March 30, 2025 Dr. Reza Elena MD Attending Provider Active Start: March [...] Active Start: April 25, 2025 Dr. Clay Hagre MD Emergency Provider Active S tart: April [...] Active Start: May 07, 2025 Kim Price TELEPHONY ENGINEER, TELEPHONY ENGINEER-C Attending Provider Active Start: May 07, 2025 Kim Price TELEPHONY ENGINEER, TELEPHONY ENGINEER-C Referring Provider Active Start: May 07, 2025 Team Status: Inactive Member Role/Relationship Status Dates Dr. Phuc Martines DO Primary Care Provider Active Start: May 07, 2025 End: May 07, 2025 Dr. Phuc Martines DO Referring Provider Active Start: May 07, 2025 End: May 07, 2025 Kim Price TELEPHONY ENGINEER, TELEPHONY ENGINEER-C Attending Provider Active Start: May 07, 2025 End: May 07, 2025 Geophysical Manager Relationship Specialty Start Date End Date Phuc Martines DO [address] [place] [address] PCP - General Family Medicine 11/09/15 Hodan Christine PA-C [address] [place], [place] [address] Pul[facility] Medicine 10/11/23 Pratibha King, JAKI.PRACTICE NURSE [address] [place], [place] [address] [facility] 10/04/24 Tyra Carson, CHILD CARE CENTER ASSISTANT DIRECTOR.PRACTICE NURSE [address] [place], [place] [address] [facility] 04/12/25 Geophysical Manager Relationship Specialty Start Date End Date Phuc Martines DO [address] [place], [place] [address] PCP - General Family Medicine 11/09/15 Hodan Christine PA-C [address] [place], [place] [address] [facility] 10/11/23 Pratibha King, CHILD CARE CENTER ASSISTANT DIRECTOR.PRACTICE NURSE [address] [place], [place] [address] [facility] 10/04/24 Tyra Carson, CHILD CARE CENTER ASSISTANT DIRECTOR.PRACTICE NURSE [address] [place], [place] [address] [facility] 04/12/25 Team Status: Inactive Member Role/Relationship Status Dates Dr. Phuc Martines DO Primary Care Provider Active Start: May 07, 2025 End: May 07, 2025 Kim Price TELEPHONY ENGINEER, TELEPHONY ENGINEER-C Attending Provider Active Start: May 07, 2025 End: May 07, 2025 Kim Price TELEPHONY ENGINEER, TELEPHONY ENGINEER-C Referring Provider Active Start: May 07, 2025 End: May 07, 2025 Team Status: Active Member Role/Relationship Status Dates Dr. Phuc Martines DO Primary Care Provider Active Start: May 13, 2025 Dr. Linwood Ivy , DO Emergency Provider Active Start: May 13, 2025 Team Status: Active Member Role/Relationship Status Dates Dr. Phuc Martines DO Primary Care Provider Active Start: May 13, 2025 Dr. Linwood Ivy DO Emergency Provider Active Start: May 13, 2025 Dr. Nicko Vallejo , Admit Provider Active Start: May 13, 2025 Dr. Nicko Vallejo DO Attending Provider Active Start: May 13, 2025 Geophysical Manager Relationship Specialty Start Date End Date Phuc Martines [address] [place] [address] PCP - General Family Medicine 04/06/25 Team Status: Inactive Member Role/Relationship Status Dates Dr. Phuc Martines DO Primary Care Provider Active Start: May 13, 2025 End: May 17, 2025 Dr. Linwood Ivy DO Emergency Provider Active Start: May 13, 2025 End: May 17, 2025 Dr. Nicko Vallejo DO Admit Provider Active Start: May 13, 2025 End: May 17, 2025 Dr. Nicko Vallejo , Other Provider Active Start: May 13, 2025 End: May 17, 2025 Dr. George Polanco MD Attending Provider Active Start: May 13, 2025 End: May 17, 2025 Team Status: Active Member Role/Relationship Status Dates Dr. Phuc Martines DO Primary Care Provider Active Start: May 14, 2025 Dr. Linwood Ivy DO Emergency Provider Active Start: May 14, 2025 Dr. Nicko Vallejo DO Admit Provider Active Start: May 14, 2025 Dr. Nicko Vallejo DO Other Provider Active Start: May 14, 2025 Dr. George Polanco MD Attending Provider Active Start: May 14, 2025 Dr. George Polanco MD Other Provider Active Sta rt: May 14, 2025 Team Status: Active Member Role/Relationship Status Dates Dr. Phuc Martines DO Primary Care Provider Active Start: May 15, 2025 Dr. Linwood Ivy DO Emergency Provider Active Start: May 15, 2025 Dr. Nicko Vallejo DO Admit Provider Active Start: May 15, 2025 Dr. Nicko Vallejo DO Other Provider Active Start: May 15, 2025 Dr. George Polanco MD Attending Provider Active Start: May 15, 2025 Dr. George Polanco MD Other Provider Active Sta rt: May 15, 2025 Team Status: Active Member Role/Relationship Status Dates Dr. Phuc Martines DO Primary Care Provider Active Start: May 16, 2025 Dr. Linwood Ivy DO Emergency Provider Active Start: May 16, 2025 Dr. Nicko Vallejo DO Admit Provider Active Start: May 16, 2025 Dr. Nicko Vallejo DO Other Provider Active Start: May 16, 2025 Dr. George Polanco MD Attending Provider Active Start: May 16, 2025 Dr. George Polanco MD Other Provider Active Sta rt: May 16, 2025 Team Status: Active Member Role/Relationship Status Dates Dr. Phuc Martines DO Primary Care Provider Active Start: May 17, 2025 Dr. Linwood Ivy DO Emergency Provider Active Start: May 17, 2025 Dr. Nicko Vallejo DO Admit Provider Active Start: May 17, 2025 Dr. Nicko Vallejo DO Other Provider Active Start: May 17, 2025 Dr. George Polanco MD Attending Provider Active Start: May 17, 2025 Dr. George Polanco MD Other Provider Active Sta rt: May 17, 2025 Team Status: Inactive Member Role/Relationship Status Dates Dr. Phuc Martines DO Primary Care Provider Active Start: June 08, 2025 End: June 08, 2025 Dr. Phuc Martines DO Referring Provider Active Start: June 08, 2025 End: June 08, 2025 Dr. Reza Elena MD Attending Provider Active Start: June 08, 2025 End: June 08, 2025 Geophysical Manager Relationship Specialty Start Date End Date Phuc Martines DO [address] [place] [address] PCP - General Family Medicine 11/09/15 Hodan Christine PAKikeC [address] [place] [address] Pulmonary and Critical Care Medicine 10/11/23 FernandoPratibha, CHILD CARE CENTER ASSISTANT DIRECTOR.PRACTICE NURSE [address] [place] [address] [facility] 10/04/24 Tyra Carson, CHILD CARE CENTER ASSISTANT DIRECTOR.PRACTICE NURSE [address] [place] [address] [facility] 04/12/25 Geophysical Manager Relationship Specialty Start Date End Date Phuc Martines DO [address] [place] [address] PCP - General Family Medicine 11/09/15 Hodan Christine PA-C [address] [place] [address] Pulmonary and Critical Care Medicine 10/11/23 FernandoPratibha, CHILD CARE CENTER ASSISTANT DIRECTOR.PRACTICE NURSE [address] [place] [address] [facility] 10/04/24 Tyra Carson, CHILD CARE CENTER ASSISTANT DIRECTOR.PRACTICE NURSE [address] [place] [address] [facility] 04/12/25 Geophysical Manager Relationship Specialty Start Date End Date Phuc Martines DO [address] [facility] [place] [address] PCP - General Family Medicine 11/09/15 Hodan Christine PA-C [address] [facility] [place] [address] Pulmonary and Critical Care Medicine 10/11/23 Pratibha King APRN.PRACTICE NURSE [address] [place], [place] [address] [facility] 10/04/24 Tyra Carson, JAKI.PRACTICE NURSE [address] [place], [place] [address] [facility] 04/12/25 Geophysical Manager Relationship Specialty Start Date End Date Phuc Martines DO [address] [place] [address] PCP - General Family Medicine 11/09/15 Hodan Christine PAKikeC [address] [place] [address] Pulmonary and Critical Care Medicine 10/11/23 Pratibha King, JAKI.PRACTICE NURSE [address] [place] [address] [facility] 10/04/24 Tyra Carson, CHILD CARE CENTER ASSISTANT DIRECTOR.PRACTICE NURSE [address] [place] [address] [facility] 04/12/25 Anne Marie Gonzalez MA Network Navigator 06/21/25 Team Status: Inactive Member Role/Relationship Status Dates Dr. Phuc Martines DO Primary Care Provider Active Start: March 30, 2025 End: March 30, 2025 Dr. Phuc Martines DO Referring Provider Active Start: March 30, 2025 End: March 30, 2025 Dr. Reza Elena MD Attending Provider Active Start: March 30, 2025 End: March 30, 2025 Team Status: Inactive Member Role/Relationship Status [...] Sta rt: April 27, 2025 Team Status: Inactive Member Role/Relationship Status Dates Dr. Phuc Martines DO Primary Care Provider Active Start: May 07, 2025 End: May 07, 2025 Kim Price TELEPHONY ENGINEER, TELEPHONY ENGINEER-C Attending Provider Active Start: May 07, 2025 End: May 07, 2025 Kim Price TELEPHONY ENGINEER, TELEPHONY ENGINEER-C Referring Provider Active Start: May 07, 2025 End: May 07, 2025 Team Status: Inactive Member Role/Relationship Status Dates Dr. Phuc Martines DO Primary Care Provider Active Start: May 07, 2025 End: May 07, 2025 Dr. Phuc Martines DO Referring Provider Active Start: May 07, 2025 End: May 07, 2025 Kim Price TELEPHONY ENGINEER, TELEPHONY ENGINEER-C Attending Provider Active Start: May 07, 2025 End: May 07, 2025 Team Status: Inactive Member Role/Relationship Status Dates Dr. Phuc Martines DO Primary Care Provider Active Start: May 13, 2025 End: May 17, 2025 Dr. Linwood Ivy DO Emergency Provider Active Start: May 13, 2025 End: May 17, 2025 Dr. Nicko Vallejo DO Admit Provider Active Start: May 13, 2025 End: May 17, 2025 Dr. Nicko Vallejo DO Other Provider Active Start: May 13, 2025 End: May 17, 2025 Dr. George Polanco MD Attending Provider Active Start: May 13, 2025 End: May 17, 2025 Team Status: Active Member Role/Relationship Status Dates Dr. Phuc Martines DO Primary Care Provider Active Start: May 14, 2025 Dr. Linwood Ivy DO Emergency Provider Active Start: May 14, 2025 Dr. Nicko Vallejo , DO Admit Provider Active Start: May 14, 2025 Dr. Nicko Vallejo , DO Other Provider Active Start: May 14, 2025 Dr. George Polanco MD Attending Provider Active Start: May 14, 2025 Dr. George Polanco MD Other Provider Active Sta rt: May 14, 2025 Team Status: Active Member Role/Relationship Status Dates Dr. Phuc Martines DO Primary Care Provider Active Start: May 15, 2025 Dr. Linwood Ivy DO Emergency Provider Active Start: May 15, 2025 Dr. Nicko Vallejo , Admit Provider Active Start: May 15, 2025 Dr. Nicko Vallejo DO Other Provider Active Start: May 15, 2025 Dr. George Polanco MD Attending Provider Active Start: May 15, 2025 Dr. George Polanco MD Other Provider Active Sta rt: May 15, 2025 Team Status: Active Member Role/Relationship Status Dates Dr. Phuc Martines DO Primary Care Provider Active Start: May 16, 2025 Dr. Linwood Ivy DO Emergency Provider Active Start: May 16, 2025 Dr. Nicko Vallejo DO Admit Provider Active Start: May 16, 2025 Dr. Nicko Vallejo DO Other Provider Active Start: May 16, 2025 Dr. George Polanco MD Attending Provider Active Start: May 16, 2025 Dr. George Polanco MD Other Provider Active Sta rt: May 16, 2025 Team Status: Active Member Role/Relationship Status Dates Dr. Phuc Martines DO Primary Care Provider Active Start: May 17, 2025 Dr. Linwood Ivy DO Emergency Provider Active Start: May 17, 2025 Dr. Nicko Vallejo DO Admit Provider Active Start: May 17, 2025 Dr. Nicko Vallejo DO Other Provider Active Start: May 17, 2025 Dr. George Polanco MD Attending Provider Active Start: May 17, 2025 Dr. George Polanco MD Other Provider Active Sta rt: May 17, 2025 Team Status: Inactive Member Role/Relationship Status Dates Dr. Phuc Martines DO Primary Care Provider Active Start: June 08, 2025 End: June 08, 2025 Dr. Phuc Martines DO Referring Provider Active Start: June 08, 2025 End: June 08, 2025 Dr. Reza Elena MD Attending Provider Active Start: June 08, 2025 End: June 08, 2025 Team Status: Inactive Member Role/Relationship Status Dates Dr. Phuc Martines DO Primary Care Provider Active Start: June 24, 2025 End: June 24, 2025 Dr. Reza Elena MD Attending Provider Active Start: June 24, 2025 End: June 24, 2025 Dr. Reza Elena MD Referring Provider Active Start: June 24, 2025 End: June 24, 2025 Team Status: Active Member Role/Relationship Status Dates Dr. Phuc Martines DO Primary Care Provider Active Start: June 24, 2025 Dr. Reza Elena MD Attending Provider Active Start: June 24, 2025 Dr. Reza Elena MD Referring Provider Active Start: June 24, 2025 Dr. Reza Elena MD Other Provider Active St art: June 24, 2025 Team Status: Active Member Role/Relationship Status Dates Dr. Phuc Martines DO Primary Care Provider Active Start: June 24, 2025 Dr. Reza Elena MD Referring Provider Active Start: June 24, 2025 Dr. Reza Elena MD Other Provider Active St art: June 24, 2025 Dr. Yonathan Gonzalez DO Attending Provider Active S tart: June 24, 2025 Team Status: Inactive Member Role/Relationship Status Dates Dr. Phuc Martines DO Primary Care Provider Active Start: July 01, 2025 End: July 01, 2025 Dr. Phuc Martines DO Referring Provider Active Start: July 01, 2025 End: July 01, 2025 Dr. Reza Elena MD Attending Provider Active Start: July 01, 2025 End: July 01, 2025 Team Status: Active Member Role/Relationship Status Dates Dr. Phuc Martines DO Primary care physician Active Team Status: Inactive Member Role/Relationship Status Dates Dr. Phuc Martines DO Primary care physician Active Start: April 23, 2025 End: April 27, 2025 Dr. Clay Hager MD Emergency Department Physician Ac tive Start: April 23, 2025 End: April 27, 2025 Dr. Virginia Henriquez MD Admitting physician Active Start: April 23, 2025 End: April 27, 2025 Dr. Virginia Henriquez MD Nurse Practitioner Active Start: April 23, 2025 End: April 27, 2025 Dr. George Polanco MD Attending physician Active Start: April 23, 2025 End: April 27, 2025 Team Status: Active Member Role/Relationship Status Dates Dr. Phuc Martines DO Primary care physician Active Start: April 24, 2025 Dr. Clay Hager MD Emergency Department Physician Ac tive Start: April 24, 2025 Dr. Virginia Henriquez MD Admitting physician Active Start: April 24, 2025 Dr. Virginia Henriquez MD Nurse Practitioner Active Start: April 24, 2025 Dr. George Polanco MD Attending physician Active Start: April 24, 2025 Dr. George Polanco MD Nurse Practitioner Active Start: April 24, 2025 Team Status: Active Member Role/Relationship Status Dates Dr. Phuc Martines DO Primary care physician Active Start: April 25, 2025 Dr. Clay Hager MD Emergency Department Physician Ac tive Start: April 25, 2025 Dr. Virginia Henriquez MD Admitting physician Active Start: April 25, 2025 Dr. Virginia Henriquez MD Nurse Practitioner Active Start: April 25, 2025 Dr. George Polanco MD Attending physician Active Start: April 25, 2025 Dr. George Polanco MD Nurse Practitioner Active Start: April 25, 2025 Team Status: Active Member Role/Relationship Status Dates Dr. Phuc Martines DO Primary care physician Active Start: April 26, 2025 Dr. Clay Hager MD Emergency Department Physician Ac tive Start: April 26, 2025 Dr. Virginia Henriquez MD Admitting physician Active Start: April 26, 2025 Dr. Virginia Henriquez MD Nurse Practitioner Active Start: April 26, 2025 Dr. George Polanco MD Attending physician Active Start: April 26, 2025 Dr. George Polanco MD Nurse Practitioner Active Start: April 26, 2025 Team Status: Active Member Role/Relationship Status Dates Dr. Phuc Martines DO Primary care physician Active Start: April 27, 2025 Dr. Clay Hager MD Emergency Department Physician Ac tive Start: April 27, 2025 Dr. Virginia Henriquez MD Admitting physician Active Start: April 27, 2025 Dr. Virginia Henriquez MD Nurse Practitioner Active Start: April 27, 2025 Dr. George Polanco MD Attending physician Active Start: April 27, 2025 Dr. George Polanco MD Nurse Practitioner Active Start: April 27, 2025 Team Status: Inactive Member Role/Relationship Status Dates Dr. Phuc Martines DO Primary care physician Active Start: May 07, 2025 End: May 07, 2025 Kim Price TELEPHONY ENGINEER, TELEPHONY ENGINEER-C Attending physician Active Start: May 07, 2025 End: May 07, 2025 Kim Price TELEPHONY ENGINEER, TELEPHONY ENGINEER-C Referring Provider Active Start: May 07, 2025 End: May 07, 2025 Team Status: Inactive Member Role/Relationship Status Dates Dr. Phuc Martines DO Primary care physician Active Start: May 07, 2025 End: May 07, 2025 Dr. Phuc Martines DO Referring Provider Active Start: May 07, 2025 End: May 07, 2025 Kim Price TELEPHONY ENGINEER, TELEPHONY ENGINEER-C Attending physician Active Start: May 07, 2025 End: May 07, 2025 Team Status: Inactive Member Role/Relationship Status Dates Dr. Phuc Martines DO Primary care physician Active Start: May 13, 2025 End: May 17, 2025 Dr. Linwood Ivy DO Emergency Departme nt Physician Active Start: May 13, 2025 End: May 17, 2025 Dr. Nicko Vallejo DO Admitting physician Active Start: May 13 End: May 17, 2025 Dr. Nicko Vallejo DO Nurse Practitioner Active Start: May 13 End: May 17, 2025 Dr. George Polanco MD Attending physician Active Start: May 13, 2025 End: May 17, 2025 Team Status: Active Member Role/Relationship Status Dates Dr. Phuc Martines DO Primary care physician Active Start: May 14, 2025 Dr. Linwood Ivy DO Emergency Departme nt Physician Active Start: May 14, 2025 Dr. Nicko Vallejo DO Admitting physician Active Start: May 14 Dr. Nicko Vallejo DO Nurse Practitioner Active Start: May 14 Dr. George Polanco MD Attending physician Active Start: May 14, 2025 Dr. George Polanco MD Nurse Practitioner Active Start: May 14, 2025 Team Status: Active Member Role/Relationship Status Dates Dr. Phuc Martines DO Primary care physician Active Start: May 15, 2025 Dr. Linwood Ivy , DO Emergency Departme nt Physician Active Start: May 15, 2025 Dr. Nicko Vallejo DO Admitting physician Active Start: May 15 Dr. Nicko Vallejo , DO Nurse Practitioner Active Start: May 15 Dr. George Polanco MD Attending physician Active Start: May 15, 2025 Dr. George Polanco MD Nurse Practitioner Active Start: May 15, 2025 Team Status: Active Member Role/Relationship Status Dates Dr. Phuc Martines DO Primary care physician Active Start: May 16, 2025 Dr. Linwood Ivy , DO Emergency Departme nt Physician Active Start: May 16, 2025 Dr. Nicko Vallejo DO Admitting physician Active Start: May 16 Dr. Nicko Vallejo DO Nurse Practitioner Active Start: May 16 Dr. George Polanco MD Attending physician Active Start: May 16, 2025 Dr. George Polanco MD Nurse Practitioner Active Start: May 16, 2025 Team Status: Active Member Role/Relationship Status Dates Dr. Phuc Martines DO Primary care physician Active Start: May 17, 2025 Dr. Linwood Ivy DO Emergency Departme nt Physician Active Start: May 17, 2025 Dr. Nicko Vallejo DO Admitting physician Active Start: May 17 Dr. Nicko Vallejo DO Nurse Practitioner Active Start: May 17 Dr. George Polanco MD Attending physician Active Start: May 17, 2025 Dr. George Polanco MD Nurse Practitioner Active Start: May 17, 2025 Team Status: Inactive Member Role/Relationship Status Dates Dr. Phuc Martines DO Primary care physician Active Start: June 08, 2025 End: June 08, 2025 Dr. Phuc Martines DO Referring Provider Active Start: June 08, 2025 End: June 08, 2025 Dr. Reza Elena MD Attending physician Active Start: June 08, 2025 End: June 08, 2025 Team Status: Inactive Member Role/Relationship Status Dates Dr. Phuc Martines DO Primary care physician Active Start: June 24, 2025 End: June 24, 2025 Dr. Reza Elena MD Attending physician Active Start: June 24, 2025 End: June 24, 2025 Dr. Reza Elena MD Referring Provider Active Start: June 24, 2025 End: June 24, 2025 Team Status: Active Member Role/Relationship Status Dates Dr. Phuc Martines DO Primary care physician Active Start: June 24, 2025 Dr. Reza Elena MD Attending physician Active Start: June 24, 2025 Dr. Reza Elena MD Referring Provider Active Start: June 24, 2025 Dr. Reza Elena MD Nurse Practitioner Active Start: June 24, 2025 Team Status: Active Member Role/Relationship Status Dates Dr. Phuc Martines DO Primary care physician Active Start: June 24, 2025 Dr. Reza Elena MD Referring Provider Active Start: June 24, 2025 Dr. Reza Elena MD Nurse Practitioner Active Start: June 24, 2025 Dr. Yonathan Gonzalez DO Attending physician Active Start: June 24, 2025 Team Status: Inactive Member Role/Relationship Status Dates Dr. Phuc Martines DO Primary care physician Active Start: July 01, 2025 End: July 01, 2025 Dr. Phuc Martines DO Referring Provider Active Start: July 01, 2025 End: July 01, 2025 Dr. Reza Elena MD Attending physician Active Start: July 01, 2025 End: July 01, 2025 Team Status: Inactive Member Role/Relationship Status Dates Dr. Phuc Martines DO Primary care physician Active Start: July 30, 2025 End: July 30, 2025 Dr. Phuc Martines DO Referring Provider Active Start: July 30, 2025 End: July 30, 2025 Irina LYNN, PA Attending physician Active Start: July 30, 2025 End: July 30, 2025 FOR RECORDS PERTAINING TO PATIENTS WHO [...] BE BASED ON THE PRIMARY CLINICAL RECORDS. [employer] provides no warranty or guarantee of the accuracy or completeness of information in this document.
--- OUTSIDE RECORDS SUMMARY | 2025-08-19 06:25 | XMS RPT_ITS | CCD ---
Author Organization [facility] Care Team Providers Care Airway Controller Name Role Phone MARGOT GALVAN Unavailable Unavailable MARGOT GALVAN Unavailable Unavailable MARGOT GALVAN Unavailable Unavailable Phuc Martines DO Primary Care Provider Phuc Martines DO Primary Care Provider Phuc Martines DO Primary Care Provider Phuc Martines DO Primary Care Provider Hodan Christine PA-C Unavailable Phuc Martines DO Primary Care Provider Ad RESIDENCE LIFE COORDINATOR.Vicky GAN Unavailable Fernando RESIDENCE LIFE COORDINATOR.Pratibha GAN Unavailable Dr. Phuc Martines DO Primary [...] Dr. Reza Elena MD Attending Provider Meena RESIDENCE LIFE COORDINATOR.FILTERS ASSEMBLER, Tyra Lozano Unavailable Madan ARELLANO, Dr. Williamson Emergency Provider [phone] Martinez ARELLANO, Dr. Virginia Ceron Admit Provider Martinez ARELLANO, Dr. Virginia Ceron Attending Provider Martinez ARELLANO, Dr. Virginia Ceron Other Provider Collin ARELLANO, Dr. Vazquez Attending Provider Collin ARELLANO, Dr. Vazquez Other Provider Albert BOAT RENTAL CLERK-CKim Attending Provider Albert BOAT RENTAL CLERK-CKim Referring Provider Dr. Nicko Vallejo DO Admit [...] PHUC MARTINES DO Consulting Unavailable AMICONE, RAYA RESIDENCE LIFE COORDINATOR Admitting Unavailable AMICONE, RAYA RESIDENCE LIFE COORDINATOR Primary Care Unavailable AMICONE, RAYA RESIDENCE LIFE COORDINATOR Attending Unavailable PROVIDER, UNKNOWN Consulting Unavailable OSVALDO BAEZ MD Admitting Unavailable OSVALDO BAEZ MD Primary Care Unavailable OSVALDO BAEZ MD Attending Unavailable Dr. Phuc Martines DO Primary Care Physician Mdaan ARELLANO, Dr. Williamson Emergency Department Physici an Martinez ARELLANO, Dr. Virginia Ceron Admitting Physician Martinez ARELLANO, Dr. Virginia Ceron Nurse Practitioner Collin ARELLANO, Dr. Vazquez Attending Physician Collin ARELLANO, Dr. Vazquez Nurse Practitioner Kim Arellano Attending Physician Conrad MAK, Dr. Friend Referring Provider Biju MAK, Dr. Palumbo Emergency Department Physic tracy Genevivee MAK, Dr. Maharaj Admitting Physician Genevieve MAK, Dr. Maharaj Nurse Practitioner Ulices ARELLANO, Dr. Adams Attending Physician [phone] Ulices ARELLANO, Dr. Adams Nurse Practitioner Omar MAK, Dr. Mcmanus Attending Physician Irnia Oliver Attending Physician [phone] Virginia Henriquez Consulting Unavailable Virginia Henriquez Admitting [...] Unavailable Irina Oliver Referring Unavail able Irina Olivre Attending Unavail able Martines, Phuc Primary Care [...] Care Unavailable RAJENDRA GOODMAN Attending Unavailable MARTINES, PUHC L Primary Care Unavailable MARTINES, PHUC L [...] Primary Care Unavailable MARICRUZ CAMP Referring Unavailable BRNADYN CARRASCO Attending Unavailable CONRAD PHUC Osmany Primary [...] sources) Naproxen; Translations: [NAPROXEN] Drug Allergy 0 [facility] Work Phone: (13 sources) Ibuprofen Drug Allergy 5 [facility] (20 sources) Nitrofurantoin; Translations: [NITROFURANTOIN] Drug Allergy 5 [facility] (1 source) Ibuprofen Drug Allergy 5 [facility] (1 source) Nitrofurantoin Drug Allergy 5 [facility] Medications Current Medications Medication Drug [...] NMA INHALATION DAILY February 19, 2025 12:00am myqvaepjfrf-aqmghykae-ebyrrs er (TRELEGY ELLIPTA) 200-62.5-25 mcg inhalation powder (20 sources) Start: 12-25-2024 take 1 puff(s) by inhalation once daily rovecemlyxp-rkqtgktlx-lwdhqejk (TRELEGY ELLIPTA) 200-62.5-25 mcg inhalation powder Inhale [...] on above: Take 2 tablets by mo [facility] twice daily. mecobalamin 1 mg chewable [...] times a day for 10 days. nystatin 343415 unt/ml topical cream (20 sources) Polyene Antifungal [...] 05/01/2022 Discontinued Start: 04-17-2017 End: 02-19-2025 take [id number] [IU] by mouth four times daily Nystatin 500,000 UNIT/5 ML suspension Discontinued 999138 U PO 4 TIMES DAILY 1 0 [...] severe COPD by GOLD classification ([facility]) Take 1 tablet by mouth once daily. 30 tablet 5 06/04/2025 Active sodium chloride 0.111 meq/ml nasal spray (20 sources) Start: 2024 Sodium Chloride ([place] Saline) 0.65 % aerosol,spray Active 1 NMA [...] on above: Take 1 capsule by mo [facility] three times daily as needed [...] on above: Take 1 capsule by mo [facility] three times a day for 7 days. 30 actuat fluticasone furoate 0.1 mg/actuat / umeclidinium 0.0625 mg/actuat / vilanterol 0.025 mg/actuat dry powder inhaler (20 sources) Anticholinergic, Corticosteroid, beta2-Adrenergic Agonist Start: 12-03-2023 End: 12-25-2024 swwpawvnjao-kuwbavwcy-qio anter (TRELEGY ELLIPTA) 100-62.5-25 mcg inhalation powder Indications: Chronic obstructive pulmonary disease, unspecified COPD type (HCC) USE 1 INHALATION DAILY INSTRUCTED 3 Each 3 11/27/2024 12/25/2024 Discontinued (Course of therapy completed) Start: 12-06-2021 End: 12-04-2022 qeurnmkotqm-uoiwimlfj-ihmils er (TRELEGY ELLIPTA) 100-62.5-25 mcg inhalation powder [...] Comment on above: Take 1 capsule by [facility] once daily. ipratropium bromide 0.2 [...] 1 puff(s) by inhalation once daily Tiotropium [place] (Spiriva With Handihaler) 1 PUFF inhaler Discontinued 1 NMA INHALATION DAILY April 15, 2017 12:00am February 19, 2025 2:18pm Tiotropium [place] (Spiriva With Handihaler) 1 PUFF inhaler (11 sources) Start: End: take 1 puff(s) by inhalation once daily Tiotropium [place] (Spiriva With Handihaler) 1 PUFF inhaler Discontinued [...] disease (1 source) Atherosclerotic heart disease of jamul coronary artery without angina pectoris; Translations: [Coronary [...] sources) Long-term current use of anticoagulant; Translations: [senior care (current) use of anticoagulants] 05-03-2025 Episodic Other aftercare (2 sources) Long-term current use of drug therapy; Translations: [Encounter for therapeutic drug level monitoring] 07-30-2025 Episodic Other aftercare (1 source) Encounter for therapeutic drug level monitoring; Translations: [Encounter for therapeutic drug level monitoring] Onset: 07-30-2025 Episodic Other aftercare (1 source) Other snf (current) drug therapy; Translations: [Other obstetrical anesthesiologist (current) drug therapy] Onset: 07-30-2025 Episodic Other aftercare (2 sources) senior care (current) use of anticoagulants; Translations: [senior care (current) use of anticoagulants] Onset: 06-08-2025 Episodic [...] flutter Unclassified (9 sources) APPOINTMENT WITH ANTIONETTE BOAT RENTAL CLERK Unclassified (1 source) Consult Onset: 08-10-2025 Viral [...] Test Name Value Interpretation Reference Range Facility [facility] 08-10-2025 CNOV Office Visit (GENSWS ) RAJENDRA LUCERO ([id number]) 1955 Date Time Provider Department 08/10/25 11:00 [...] disease) (HCC) 02/03/2010 Coronary artery disease No [place], CHF. No heart cath. Diverticulosis of colon [...] mouth every (more content not included)... Normal [facility] CNOVon 08-04-2025 CNOV Office Visit (PULMWS ) RAJENDRA LUCERO ([id number]) 1955 F Date Time Provider Department 08/04/25 10:00 AM RAJENDRA GOODMAN PULMWS During your visit today, we recorded the following information about you: Pulse Respiration Weight 57/minute 16/minute 111.1 kg Rajendra Goodman, RESIDENCE LIFE COORDINATOR.FILTERS ASSEMBLER 08/04/2025 10:29 AM Signed Pulmonary Medicine Patients name: Rajendra Palumbo PCP: Phuc Martines, Recording using ambient AI software for draft documentation of the visit was discussed with the patient/authorized ict sales representative; all questions welcomed and answered. Patient/authorized ict sales representative agreed to proceed CC: follow-up HPI: Rajendra Lucero is a 69 year old female former 97-vxxv-biak smoker, quitting in 2008 with PMH significant [...] COPD (chronic obstructive pulmonary disease) ([facility]) 02/03/2010 Coronary artery disease No [place], CHF. No heart cath. Diverticulosis of colon [...] ELLIPTA 200-62.5-25 mcg inhalation powder Generic drug: rvzbaeroizj-lopaqqnkd-kthxxgq r Inhale 1 Puff as instructed once [...] 01/2023 R (more content not included)... [facility]) RAJENDR[facility] LUCERO ([id number]) 1955 F Date Time Provider Department 07/30/25 [facility] During your visit today, we recorded [...] Date Reviewed: 07/29/2025 Reviewed by: Brandyn Carrasco APRN.FILTERS ASSEMBLER - Fully Assessed Reason for Visit: Appointment [...] as needed for wheezing/shortness of breath. - cpkwockwixm-wcxrezgrn-boeqiym r (TRELEGY ELLIPTA) 200-62.5-25 mcg inhalation powder [...] Status:Closed by PITO CHIN on 08/03/25 Normal [facility] Cardiology Visit Reporton Cardiology Visit Report Normal [facility] CNOVon 07-29-2025 CNOV Office Visit (PULMWS ) RAJENDRA LUCERO ([id number]) 1955 F Date Time Provider Department 07/29/25 [...] to endocrinology. Others? Lung Cancer Screening hotline: [phone] Lung Cancer Screening [phone] Billing Questions: or [email or web address] If you have any questions or concerns, please feel free to contact our team at [phone]. Brandyn Carrasco, JAKI.ELVIA 07/29/2025 12:10 PM Signed [facility] Lung Cancer Screening 6 month follow up Chief Complaint: Established patient in lung cancer screening program here for a 6 month follow up visit. PRIMARY CARE PHYSICIAN: Phuc Martines DO PULMONARY PROVIDER: Dr. Gonzalez BURNING SUPERVISOR: Dr. Elena Current or Ex-smoker? [Ex] Exam [...] Yes Lung Cancer Screening Program Location: [facility] Impression / Recommendations Rajendra Lucero presents [...] chest tightne (more content not included)... Normal [facility] CT LUNG FOLLOWUP WO IVCONon 07-29-2025 CT LUNG FOLLOWUP WO IVCON * * *Final Report* * * DATE OF EXAM: Jul 29 2025 10:41AM [facility] 0561 - CT LUNG FOLLOWUP WO [...] without contrast. MQ: CTLCS_6 Patient characteristics: * Abei-mc-Rcnyi: 1955; Age at exam: 69 years * Gender: Female * Lung Disease: Asymptomatic (no signs or symptoms of lung disease) * Number of Pack Years: 38 * Current smoker (=0) or Number of Years since Quit: 15 * Ordering provider and NPI: MARICRUZ CAMP [id number] * Interpreting radiologist and NPI: [place] [id number] Exam acquisition parameters: * Exam Date: 07/29/2025 10:41 AM * Site: [facility] * * CT System Dial Marker: Siemens * CT System Model: Sensation * [...] 1-3 month LDCT Other actionable findings: Reference: [employer]. Lung CT Screening Reporting and Data System (Lung-RADS). Available at: http://www.acr.org/Quality-Sa fety/Resources/LungRADS Supreme Court Justice: PSCB Transcribe Date/Time: Jul 30 2025 9:48P Dictated by : CHUNG THORNE MD This examination was interpreted and the report reviewed and electronically signed by: CHUNG THORNE MD on Jul 30 2025 9:53PM EST [id number] Normal [facility] 07-28-2025 CNPN Telephone (FAMPWS) RAJENDRA LUCERO ([id number]) 1955 F Date Time Provider Department 07/28/25 [facility] During your visit today, we recorded the following information about you: Erica Mckenzie LPN 07/28/2025 2:[address] Martines. My ultrasound results went to Sofi Garcia. Are you able to see them also? She referred me to Dr. Linwood Matson at [facility]. I have an appointment for Aug 03. [...] she had an appointment scheduled with Dr Linwood Matson, but he is a pancreatic surgeon [...] Recommend starting with general surgeon here in [place] just for opinion. Unsure if biopsy is [...] for Visit: Patient Update [1234] Patient Question [6757] Appointment [186] Prescriptions as of 08/07/2025 - [...] as needed for wheezing/shortness of breath. - lejfjntvhyr-swpjewnrf-dzzvyuy r (TRELEGY ELLIPTA) 200-62.5-25 mcg inhalation powder [...] once daily. (more content not included)... Normal [facility] US ABD RIGHT UPPER QUADRANTo n 07-26-2025 US ABD RIGHT UPPER QUADRANT * * *Final Report* * * DATE OF EXAM: Jul 26 2025 12:00PM [facility] 1032 - US ABD RIGHT UPPER QUADRANT [...] craniocaudad dimension. Several splenic cystic lesions with ict sales representative measurements as follows. A multi septated [...] 2. Otherwise, unremarkable sonogram of the abdomen. Supreme Court Justice: PSCB Transcribe Date/Time: Jul 27 2025 8:19A Dictated by : MYESHA HAWK MD This examination was interpreted and the report reviewed and electronically signed by: MYESHA HAWK MD on Jul 27 2025 8:23AM EST [id number] Normal [facility] US ABD SPLEEN -NBon 07-26-20 US ABD SPLEEN -NB * * *Final Report* * * DATE OF EXAM: Jul 26 2025 12:00PM [facility] 1232 - US ABD SPLEEN -NB / [...] craniocaudad dimension. Several splenic cystic lesions with ict sales representative measurements as follows. A multi septated [...] 2. Otherwise, unremarkable sonogram of the abdomen. Supreme Court Justice: PAT Transcribe Date/Time: Jul 27 2025 8:19A Dictated by : MYESHA HAWK MD This examination was interpreted and the report reviewed and electronically signed by: MYESHA HAWK MD on Jul 27 2025 8:23AM EST [id number] Normal [facility] 25(OH)D3 [facility] 2024 25-hydroxyvitamin D3 [Mass/Vol] 35.7 ng/mL Normal 31.0-80.0 [facility] Comment on above: Order Comment: Speci men Type: BLOOD SPECIMENOrdering Facility: [facility] Address: [address] [place] [address] Result Comment: Clas sification of 25 [place] Vitamin D status: Deficiency/Insufficiency: < or = 30 ng/ml. Sufficiency/Optimal Levels: 31-80 ng/mL Toxicity: > 100 ng/mL. Test performed by chemiluminescent immunoassay. Performed By: #### 1 989-3 ####[facility] LABIA [id number] [place] [address] [place] ALKALINE PHOSPHATASE ISOENZY MES (P)on 07-23-2025 ALK PHOS BONE % 41.8 % Normal 10.7-68.3 [facility] Comment on above: Order Comment: Speci men Type: BLOOD SPECIMENOrdering Facility: [facility] Address: [address] [place] [address] Performed By: #### A LKISOP ####[facility] LABIA [id number] [place] [address] [place] ALK PHOS LIVER % 49.1 % Normal 26.0-86.2 [facility] Comment on above: Order Comment: Speci men Type: BLOOD SPECIMENOrdering Facility: [facility] Address: [address] [place] [address] Performed By: #### A LKISOP ####[facility] LABIA [id number] [place] [address] [place] BONE FRACTION 33.9 U/L Normal 12.9-52.6 [facility] Comment on above: Order Comment: Speci men Type: BLOOD SPECIMENOrdering Facility: [facility] Address: [address] [place] [address] Performed By: #### A LKISOP ####[facility] LABIA [id number] [place] [id number] [place] INTESTINE FRACTION 7.4 U/L Normal 0.0-16.3 [facility] Comment on above: Order Comment: Speci men Type: BLOOD SPECIMENOrdering Facility: [facility] Address: [address] [place] [address] Performed By: #### A LKISOP ####[facility] LABIA [id number] [place] [address] [place] LIVER FRACTION 39.8 U/L Normal 16.0-69.3 [facility] Comment on above: Order Comment: Speci men Type: BLOOD SPECIMENOrdering Facility: [facility] Address: [address] [place] [address] Performed By: #### A LKISOP ####[facility] LABIA [id number] [place] [address] [place] Neutrophils/100 WBC (Bld) 9.1 % Normal 0.0-24.2 [facility] Comment on above: Order Comment: Speci men Type: BLOOD SPECIMENOrdering Facility: [facility] Address: [address] [place] [address] Performed By: #### A LKISOP ####[facility] LABIA [id number] [place] [address] [place] ALP SerPl-cCncon 07-23-2025 ALP [Catalytic activity/Vol] 81 U/L Normal 34-123 [facility] Comment on above: Order Comment: Speci men Type: BLOOD SPECIMENOrdering Facility: [facility] Address: [address] [place] [address] Performed By: #### 6 768-6, 2132-9 ####[facility] LABIA [id number] [place] [address] [place] Ammonia Plas-sCncon 07-23-20 25 Ammonia (P) [Moles/Vol] 16 umol/L Normal 11-51 [facility] Comment on above: Order Comment: Speci men Type: BLOOD SPECIMENOrdering Facility: [facility] Address: [address] [place] [address] Performed By: #### 1 6362-6 ####[facility] LABIA [id number] [place] [address] [place] CBC W Auto Differential pane l (Bld)on 07-23-2025 Basophils (Bld) [#/Vol] 0.05 10*3/uL Normal <0.11 [facility] Comment on above: Order Comment: Speci men Type: BLOOD SPECIMENOrdering Facility: [facility] Address: [address] [place] [address] Performed By: #### 5 7021-8 ####[facility] LABCLIA [id number] [facility] [address], [facility] [place] Basophils/100 WBC (Bld) 0.7 % Normal [facility] Comment on above: Order Comment: Speci men Type: BLOOD SPECIMENOrdering Facility: [facility] Address: [address] [place] [address] Performed By: #### 5 7021-8 ####[facility] LABCLIA [id number] [address], [place] [address] [place] Differential cell count method Nom (Bld) Auto Normal [facility] Comment on above: Order Comment: Speci men Type: BLOOD SPECIMENOrdering Facility: [facility] Address: [address] [place] [address] Performed By: #### 5 7021-8 ####[facility] LABCLIA [id number] [address], [facility] [place] Eosinophils (Bld) [#/Vol] 0.14 10*3/uL Normal <0.46 [facility] Comment on above: Order Comment: Speci men Type: BLOOD SPECIMENOrdering Facility: [facility] Address: [address] [place] [address] Performed By: #### 5 7021-8 ####[facility] LABCLIA [id number] [facility] [place] [address] [place] Eosinophils/100 WBC (Bld) 2.1 % Normal [facility] Comment on above: Order Comment: Speci men Type: BLOOD SPECIMENOrdering Facility: [facility] Address: [address] [place] [address] Performed By: #### 5 7021-8 ####[facility] LABCLIA [id number] [address], [place] [address] [place] Erythrocyte distribution width (RBC) [Ratio] 17.4 % High 11.5-15.0 [facility] Comment on above: Order Comment: Speci men Type: BLOOD SPECIMENOrdering Facility: [facility] Address: [address] [place] [address] Performed By: #### 5 7021-8 ####[facility] LABCLIA [id number] [address], [place] [address] [place] Hematocrit (Bld) [Volume fraction] 43.5 % Normal 36.0-46.0 [facility] Comment on above: Order Comment: Speci men Type: BLOOD SPECIMENOrdering Facility: [facility] Address: [address] [place] [address] Performed By: #### 5 7021-8 ####[facility] LABIA [id number] [address], [place] [address] [place] Hemoglobin (Bld) [Mass/Vol] 13.2 g/dL Normal 11.5-15.5 [facility] Comment on above: Order Comment: Speci men Type: BLOOD SPECIMENOrdering Facility: [facility] Address: [address] [place] [address] Performed By: #### 5 7021-8 ####[facility] LABCLIA [id number] [address], [place] [address] [place] Immature granulocytes (Bld) [#/Vol] 10*3/uL Normal <0.10 [facility] Comment on above: Order Comment: Speci men Type: BLOOD SPECIMENOrdering Facility: [facility] Address: [address] [place] [address] Performed By: #### 5 7021-8 ####[facility] LABIA [id number] [address], [facility] [place] Immature granulocytes/100 WBC (Bld) 0.3 % Normal [facility] Comment on above: Order Comment: Speci men Type: BLOOD SPECIMENOrdering Facility: [facility] Address: [address] [place] [address] Performed By: #### 5 7021-8 ####[facility] LABCLIA [id number] [place] [address] [place] Lymphocytes (Bld) [#/Vol] 1.11 10*3/uL Normal 1.00-4.00 [facility] Comment on above: Order Comment: Speci men Type: BLOOD SPECIMENOrdering Facility: [facility] Address: [address] [place] [address] Performed By: #### 5 7021-8 ####[facility] LABCLIA [id number] [place] [address] [place] Lymphocytes/100 WBC (Bld) 16.5 % Normal [facility] Comment on above: Order Comment: Speci men Type: BLOOD SPECIMENOrdering Facility: [facility] Address: [address] [place] [address] Performed By: #### 5 7021-8 ####[facility] LABCLIA [id number] [place] [address] [place] MCH (RBC) [Entitic mass] 29.5 pg Normal 26.0-34.0 [facility] Comment on above: Order Comment: Speci men Type: BLOOD SPECIMENOrdering Facility: [facility] Address: [address] [place] [address] Performed By: #### 5 7021-8 ####[facility] LABCLIA [id number] [place] [address] [place] MCHC (RBC) [Mass/Vol] 30.3 g/dL Low 30.5-36.0 [facility] Comment on above: Order Comment: Speci men Type: BLOOD SPECIMENOrdering Facility: [facility] Address: [address] [place] [address] Performed By: #### 5 7021-8 ####[facility] LABCLIA [id number] [place] [address] [place] MCV (RBC) [Entitic vol] 97.1 fL Normal 80.0-100.0 [facility] Comment on above: Order Comment: Speci men Type: BLOOD SPECIMENOrdering Facility: [facility] Address: [address] [place] [address] Performed By: #### 5 7021-8 ####[facility] LABCLIA [id number] [address], [place] [address] [place] Monocytes (Bld) [#/Vol] 0.60 10*3/uL Normal <0.87 [facility] Comment on above: Order Comment: Speci men Type: BLOOD SPECIMENOrdering Facility: [facility] Address: [address] [place] [address] Performed By: #### 5 7021-8 ####[facility] LABIA [id number] [address], [place] [address] [place] Monocytes/100 WBC (Bld) 8.9 % Normal [facility] Comment on above: Order Comment: Speci men Type: BLOOD SPECIMENOrdering Facility: [facility] Address: [address] [place] [address] Performed By: #### 5 7021-8 ####[facility] LABCLIA [id number] [place] [address] [place] Neutrophils (Bld) [#/Vol] 4.81 10*3/uL Normal 1.45-7.50 [facility] Comment on above: Order Comment: Speci men Type: BLOOD SPECIMENOrdering Facility: [facility] Address: [address] [place] [address] Performed By: #### 5 7021-8 ####[facility] SYSTEM LABCLIA [id number] [place] [address] [place] Neutrophils/100 WBC (Bld) 71.5 % Normal [facility] Comment on above: Order Comment: Speci men Type: BLOOD SPECIMENOrdering Facility: [facility] Address: [address] [place] [address] Performed By: #### 5 7021-8 ####[facility] LABCLIA [id number] [place] [address] [place] Nucleated RBC (Bld) [#/Vol] 10*3/uL Normal <0.01 [facility] Comment on above: Order Comment: Speci men Type: BLOOD SPECIMENOrdering Facility: [facility] Address: [address] [place] [address] Performed By: #### 5 7021-8 ####[facility] LABCLIA [id number] [place] [address] [place] Nucleated RBC/100 WBC (Bld) [Ratio] 0.0 /100 WBC Normal [facility] Comment on above: Order Comment: Speci men Type: BLOOD SPECIMENOrdering Facility: [facility] Address: [address] [place] [address] Performed By: #### 5 7021-8 ####[facility] LABCLIA [id number] [place] [address] [place] Platelet mean volume (Bld) [Entitic vol] 12.6 fL Normal 9.0-12.7 [facility] Comment on above: Order Comment: Speci men Type: BLOOD SPECIMENOrdering Facility: [facility] Address: [address] [place] [address] Performed By: #### 5 7021-8 ####[facility] LABCLIA [id number] [place] [address] [place] Platelets (Bld) [#/Vol] 188 10*3/uL Normal 150-400 [facility] Comment on above: Order Comment: Speci men Type: BLOOD SPECIMENOrdering Facility: [facility] Address: [address] [place] [address] Performed By: #### 5 7021-8 ####[facility] LABIA [id number] [place] [address] [place] RBC (Bld) [#/Vol] 4.48 10*6/uL Normal 3.90-5.20 [facility] Comment on above: Order Comment: Speci men Type: BLOOD SPECIMENOrdering Facility: [facility] Address: [address] [place] [address] Performed By: #### 5 7021-8 ####[facility] LABIA [id number] [place] [address] [place] WBC (Bld) [#/Vol] 6.73 10*3/uL Normal 3.70-11.00 [facility] Comment on above: Order Comment: Speci men Type: BLOOD SPECIMENOrdering Facility: [facility] Address: [address] [place] [address] Performed By: #### 5 7021-8 ####[facility] [id number] [address] [place] CNOVon 07-23-2025 CNOV Office Visit (FAMPWS ) RAJENDRA LUCERO ([id number]) 1955 F Date Time Provider Department 07/23/25 [...] oxygen dependent, stage 3, chronic hypoxia, seeing Dairy Equipment Installer- using her inhalers as prescribed. Was in the hospital recently a few months ago for flare up of symptoms Atrial fibrillation, recently diagnosed, seeing and managed by Firer Helper, no new symptoms. She is taking Eliquis medication as prescribed without bleeding SE Has some fatigue symptoms and brain fog symptoms PAST MEDICAL HISTORY Diagnosis Date Atrial flutter (HCC) CHF (congestive heart failure) ([facility]) Chronic hypoxemic respiratory failure (HCC) COPD (chronic obstructive pulmonary disease) ([facility]) 02/03/2010 Coronary artery disease No [place], CHF. No heart cath. Diverticulosis of colon [...] hours as needed for wheezing/shortness of breath. cvcmlhcmfvq-csdbpogrg-skzgdds r (TRELEGY ELLIPTA) 200-62.5-25 mcg inhalation powder [...] No L (more content not included)... Normal [facility] Comprehensive metabolic 2000 panelon 07-23-2025 Albumin [Mass/Vol] 4.5 g/dL Normal 3.9-4.9 [facility] Comment on above: Order Comment: Speci men Type: BLOOD SPECIMENOrdering Facility: [facility] Address: [address] [place] [address] Performed By: #### 2 4323-8, 2324-2, 56228-7, 3016-3 ####[facility] LABCLIA [id number] [place] [address] [place] ALP [Catalytic activity/Vol] 75 U/L Normal 34-123 [facility] Comment on above: Order Comment: Speci men Type: BLOOD SPECIMENOrdering Facility: [facility] Address: [address] [place] [address] Performed By: #### 2 4323-8, 2324-2, 26539-0, 3016-3 ####[facility] LABIA [id number] [place] [address] [place] ALT [Catalytic activity/Vol] 20 U/L Normal 7-38 [facility] Comment on above: Order Comment: Speci men Type: BLOOD SPECIMENOrdering Facility: [facility] Address: [address] [place] [address] Performed By: #### 2 4323-8, 2324-2, 97160-7, 3016-3 ####[facility] LABCLIA [id number] [place] [id number] [place] Anion gap [Moles/Vol] 15 mmol/L Normal 8-15 [facility] Comment on above: Order Comment: Speci men Type: BLOOD SPECIMENOrdering Facility: [facility] Address: [address] [place], [place] [address] Performed By: #### 2 4323-8, 2324-2, 08251-0, 3016-3 ####[facility] LABCLIA [id number] [address] [address] [place] AST [Catalytic activity/Vol] 25 U/L Normal 13-35 [facility] Comment on above: Order Comment: Speci men Type: BLOOD SPECIMENOrdering Facility: [facility] Address: [address] [place], [place] [address] Performed By: #### 2 4323-8, 2324-2, 40979-7, 3016-3 ####[facility] LABCLIA [id number] [place] [address] [place] Bilirubin [Mass/Vol] 0.6 mg/dL Normal 0.2-1.3 [facility] Comment on above: Order Comment: Speci men Type: BLOOD SPECIMENOrdering Facility: [facility] Address: [address] [place], [place] [address] Performed By: #### 2 4323-8, 2324-2, 49401-9, 3016-3 ####[facility] LABCLIA [id number] [place] [address] [place] Calcium [Mass/Vol] 9.8 mg/dL Normal 8.5-10.2 [facility] Comment on above: Order Comment: Speci men Type: BLOOD SPECIMENOrdering Facility: [facility] Address: [address] [place], [place] [address] Performed By: #### 2 4323-8, 2324-2, 48044-2, 3016-3 ####[facility] LABCLIA [id number] [address] [address] [place] Chloride [Moles/Vol] 96 mmol/L Low 98-107 [facility] Comment on above: Order Comment: Speci men Type: BLOOD SPECIMENOrdering Facility: [facility] Address: [address] [place], [place] [address] Performed By: #### 2 4323-8, 2324-2, 06751-5, 3016-3 ####[facility] LABCLIA [id number] [address] [address] [place] CO2 [Moles/Vol] 33 mmol/L High 22-30 [facility] Comment on above: Order Comment: Speci men Type: BLOOD SPECIMENOrdering Facility: [facility] Address: [address] [place] [address] Performed By: #### 2 4323-8, 2324-2, 33688-7, 3016-3 ####[facility] LABIA [id number] [address] [address] [place] Creatinine [Mass/Vol] 0.66 mg/dL Normal 0.58-0.96 [facility] Comment on above: Order Comment: Speci men Type: BLOOD SPECIMENOrdering Facility: [facility] Address: [address] [place] [address] Performed By: #### 2 4323-8, 2324-2, 18510-5, 3016-3 ####[facility] LABIA [id number] [place] [address] [place] eGFRcr SerPlBld CKD-EPI 2020 96 mL/min/1.73m??? Normal >=60 [facility] Comment on above: Order Comment: Speci men Type: BLOOD SPECIMENOrdering Facility: [facility] Address: [address] [place] [address] Result Comment: Marcia mated Glomerular Filtration Rate [...] GFR. Performed By: #### 2 4323-8, 2324-2, 42992-3, 3016-3 ####[facility] LABCLIA [id number] [address] [address] [place] Glucose [Mass/Vol] 95 mg/dL Normal 74-99 [facility] Comment on above: Order Comment: Speci men Type: BLOOD SPECIMENOrdering Facility: [facility] Address: [address] [place] [address] Result Comment: The [place] Diabetes Association (ADA) provides guidance for cutoff [...] Standards of Medical Care in Diabetes 2016, [place] Diabetes Association. Diabetes Care. 2016.39(Suppl 1). Performed By: #### 2 4323-8, 2324-2, 74110-9, 3016-3 ####[facility] LABCLIA [id number] [address] [address] [place] Potassium [Moles/Vol] 4.4 mmol/L Normal 3.7-5.1 [facility] Comment on above: Order Comment: Speci men Type: BLOOD SPECIMENOrdering Facility: [facility] Address: [address] [place] [address] Performed By: #### 2 4323-8, 2324-2, 60255-8, 3016-3 ####[facility] LABIA [id number] [address] [address] [place] Protein [Mass/Vol] 7.6 g/dL Normal 6.3-8.0 [facility] Comment on above: Order Comment: Speci men Type: BLOOD SPECIMENOrdering Facility: [facility] Address: [address] [place], [place] [address] Performed By: #### 2 4323-8, 2324-2, 63388-6, 3016-3 ####[facility] LABCLIA [id number] [address] [address] [place] Sodium [Moles/Vol] 144 mmol/L Normal 136-144 [facility] Comment on above: Order Comment: Speci men Type: BLOOD SPECIMENOrdering Facility: [facility] Address: [address] [place] [address] Performed By: #### 2 4323-8, 2324-2, 29580-6, 3016-3 ####[facility] LABCLIA [id number] [address] [address] [place] Urea nitrogen [Mass/Vol] 16 mg/dL Normal 7-21 [facility] Comment on above: Order Comment: Speci men Type: BLOOD SPECIMENOrdering Facility: [facility] Address: [address] [place] [address] Performed By: #### 2 4323-8, 2324-2, 63735-3, 3016-3 ####[facility] LABCLIA [id number] [place] [address] [place] GGT SerPl-cCncon 07-23-2025 Gamma glutamyl transferase [Catalytic activity/Vol] 23 U/L Normal 6-46 [facility] Comment on above: Order Comment: Speci men Type: BLOOD SPECIMENOrdering Facility: [facility] Address: [address] [place], [place] [address] Performed By: #### 2 4323-8, 2324-2, 40203-4, 3016-3 ####[facility] LABCLIA [id number] [address] [address] [place] HbA1c (Bld)on 07-23-2025 Average glucose Estimated from glycated hemoglobin (Bld) [Mass/Vol] 117 mg/dL Normal [facility] Comment on above: Order Comment: Speci men Type: BLOOD SPECIMENOrdering Facility: [facility] Address: [address] [place] [address] Result Comment: eAG: (Estimated average glucose) is a calculated value from HgbA1c and is ict sales representative of the average blood glucose level in the last 2-3 month period. Performed By: #### 5 5454-3 ####[facility] LABCLIA [id number] [place] [address] [place] HbA1c (Bld) [Mass fraction] 5.7 % High 4.3-5.6 [facility] Comment on above: Order Comment: Xiao men Type: BLOOD SPECIMENOrdering Facility: [facility] Address: [address] [place] [address] Result Comment: [place] Diabetes Association guidelines indicate that patients with HgbA1c in the range 5.7-6.4% are at increased risk for development of diabetes, and intervention by lifestyle modification may be beneficial. HgbA1c greater or equal to 6.5% is considered diagnostic of diabetes. Performed By: #### 5 5454-3 ####[facility] LABCLIA [id number] [place] [address] [place] Iron and Iron binding capaci ty panelon 07-23-2025 Iron [Mass/Vol] 76 ug/dL Normal 41-186 [facility] Comment on above: Order Comment: Xiao men Type: BLOOD SPECIMENOrdering Facility: [facility] Address: [address] [place] [address] Performed By: #### 2 4323-8, 2324-2, 31999-7, 3016-3 ####[facility] LABCLIA [id number] [place] [address] [place] Iron binding capacity [Mass/Vol] 403 ug/dL High 232-386 [facility] Comment on above: Order Comment: Saniyai men Type: BLOOD SPECIMENOrdering Facility: [facility] Address: [address] [place] [address] Performed By: #### 2 4323-8, 2324-2, 50027-7, 3016-3 ####[facility] LABCLIA [id number] [place] [address] [place] Iron/TIBC [Molar ratio] 18.9 % Normal 15.0-57.0 [facility] Comment on above: Order Comment: Speci men Type: BLOOD SPECIMENOrdering Facility: [facility] Address: [address] [place] [address] Performed By: #### 2 4323-8, 2324-2, 49127-8, 3016-3 ####[facility] LABCLIA [id number] [place] [address] [place] TSH SerPl-aCncon 07-23-2025 TSH Qn 2.330 m[IU]/L Normal 0.270-4.20 0 [facility] Comment on above: Order Comment: Speci men Type: BLOOD SPECIMENOrdering Facility: [facility] Address: [address] [place] [address] Performed By: #### 2 4323-8, 2324-2, 40348-6, 3016-3 ####[facility] LABCLIA [id number] [place] [address] [place] Vit B12 SerPl-mCncon 025 Cobalamin (Vitamin B12) [Mass/Vol] 749 pg/mL Normal 232-1245 [facility] Comment on above: Order Comment: Speci men Type: BLOOD SPECIMENOrdering Facility: [facility] Address: [address] [place] [address] Performed By: #### 6 768-6, 2132-9 ####[facility] LABCLIA [id number] [place] [address] [place] Cardioversion Reporton 06-24 Cardioversion Report Normal [facility] Cardioversion reportOrdered By: Reza Elena on 06-24-2025 Study report [facility] Cardiovascular Services [address] [place] [address] MR#: [id number] Acct: [id number] Name: RAJENDRA LUCERO Rep #: [id number] : 1955 69 From: Reza osei MD Primary Care: Dr. Phuc Martines DO [facility] tus: REG SDC Referring Dr: Reza Elena [...] 08 and subsequently was brought to the Mobile Service Rv Technician recovery area for direct-current cardioversion. Patient carriesa [...] long-term oral anticoagulation. She has an elevated LWB0LT3-FOXj score and will need to be maintained on long-term oral anticoagulation. Patient will have the ECG done in 1 week, follow-up with advanced practitioner in 3 to 4 weeks, and see Dr. Elena at 6 months. This was discussed in detail with the patient and her daughter. Procedures Coronary Therapeutic CF Procedures 92xxx-93xxx: 80775 Cardioversion electric ext 06/24/25 1241 Date _ Reza Eelna MD CC: Dr. Phuc Martines, DO; Dr. Reza Elena MD ~ Date Dictated: 06/24/25 1237 Date Transcribed: 06/24/251236 [address] Justice: Signed [facility] Work Phone: Procedure Reporton 5 Procedure Report Normal [facility] Anion gap in Serum or Plasma Ordered By: Reza Elena on 06-22-2025 Anion gap [Moles/Vol] 12 mmol/L 5-15 [facility] BUN/creatinine ratioOrdered By: Reza Elena on 06-22-2025 Urea nitrogen/Creatinine [Mass ratio] 21.0 mg/mg High 10-20 [facility] Basic Metabolic Profile (BMP )on 06-22-2025 BUN/CRE 21.0 RATIO High 10-20 [facility] Comment on above: Performed By: #### L 500.2500 ####[facility] [address] [place], [address] Calcium [Mass/Vol] 9.8 mg/dL Normal 7.6-11.0 [facility] Comment on above: Performed By: #### L 500.2500 ####[facility] [address] [place], [address] Chloride [Moles/Vol] 101 mmol/L Normal 98-108 [facility] Comment on above: Performed By: #### L 500.2500 ####[facility] [address] [place], [address] CO2 [Moles/Vol] 34.1 mmol/L High 21.0-32.0 [facility] Comment on above: Performed By: #### L 500.2500 ####[facility] [address] [place], [address] Creatinine [Mass/Vol] 0.71 mg/dL Normal 0.70-1.20 [facility] Comment on above: Performed By: #### L 500.2500 ####[facility] [address] [place], [address] GAP 12 Normal 5-15 [facility] Comment on above: Performed By: #### L 500.2500 ####[facility] [address] [place], [address] GFR/1.73 sq M.predicted among non-blacks MDRD (S/P/Bld) [Vol rate/Area] 93 mL/min/{1.73_m2} Normal >60 [facility] Comment on above: Result Comment: mL/m in/1.73m2 CKD-EPI Creatinine Equation (2020) Performed By: #### L 500.2500 ####[facility] [address] [place], [address] Glucose [Mass/Vol] 106 mg/dL High 70-99 [facility] Comment on above: Performed By: #### L 500.2500 ####[facility] [address] [place], [address] Potassium [Moles/Vol] 3.8 mmol/L Normal 3.3-5.1 [facility] Comment on above: Performed By: #### L 500.2500 ####[facility] [address] [place], [address] Sodium [Moles/Vol] 147 mmol/L High 133-145 [facility] Comment on above: Performed By: #### L 500.2500 ####[facility] [address] [place], [address] Urea nitrogen [Mass/Vol] 15 mg/dL Normal 4-19 [facility] Comment on above: Performed By: #### L 500.2500 ####[facility] [address] [place], [address] Carbon dioxide, total [Moles /volume] in Central venous bloodOrdered By: Reza Elena on 06-22-2025 CO2 [Moles/Vol] 34.1 mmol/L High 21.0-32.0 [facility] Chloride assayOrdered By: Kyra Elena on 06-22-2025 Chloride [Moles/Vol] 101 mmol/L 98-108 [facility] Glomerular filtration rate ( GFR) estimation/1.73 sq m using serum, plasma, or whole bOrdered By: Reza Elena on 06-22-2025 GFR/1.73 sq M.predicted among non-blacks MDRD (S/P/Bld) [Vol rate/Area] 93 mL/min/{1.73_m2} >60 [facility] Comment on above: mL/min/1.73m2 CKD-EP I Creatinine Equation (2020) Potassium measurement (mass/ volume)Ordered By: Reza Elena on 06-22-2025 Potassium (Unsp spec) [Mass/Vol] 3.8 mmol/L 3.3-5.1 [facility] Serum creatinine measurement (mass/volume)Ordered By: Reza Elena on 06-22-2025 Creatinine [Mass/Vol] 0.71 mg/dL 0.70-1.20 [facility] Serum glucose measurement (m ass/volume)Ordered By: Reza Elena on 06-22-2025 Glucose [Mass/Vol] 106 mg/dL High 70-99 [facility] Serum or plasma calcium tad urement (mass/volume)Ordered By: Reza Elena on 06-22-2025 Calcium [Mass/Vol] 9.8 mg/dL 7.6-11.0 [facility] Serum or plasma urea nitroge n measurement (mass/volume)Ordered By: Reza Elena on 06-22-2025 Urea nitrogen [Mass/Vol] 15 mg/dL 4-19 [facility] Sodium levelOrdered By: Jose Elena on 06-22-2025 Sodium [Moles/Vol] 147 mmol/L High 133-145 [facility] CNPNon 06-21-2025 CNPN Telephone ([facility]) RAJENDRA LUCERO ([id number]) 1955 F Date Time Provider Department 06/21/25 [...] Date Reviewed: 06/04/2025 Reviewed by: Rajendra Goodman, RESIDENCE LIFE COORDINATOR.FILTERS ASSEMBLER - Fully Assessed Prescriptions as of 06/21/2025 [...] as needed for wheezing/shortness of breath. - jtbowmccoos-tbjrwqzxr-kwygbwr r (TRELEGY ELLIPTA) 200-62.5-25 mcg inhalation powder [...] Status:Closed by [place] on 06/21/25 Normal [facility] BMP with eGFRon 06-15-2025 AGE 69 years Normal [facility] Comment on above: Performed By: #### 2 62803 #### [facility],[address] [place] [address] Anion gap [Moles/Vol] 4 mmol/L Low 10 - 20 [facility] Comment on above: Performed By: #### 2 46761 #### [facility],[address] [place], [place] [address] BMP with eGFR Normal [facility] Comment on above: Result Comment: BASI C METABOLIC PANEL Performed By: #### 2 82668 #### [facility],[address] [place], [place] [address] Calcium [Mass/Vol] 9.2 mg/dL Normal 8.5 - 10.1 [facility] Comment on above: Performed By: #### 2 62982 #### [facility],[address] [place] [address] Chloride [Moles/Vol] 104 mmol/L Normal 98 - 107 [facility] Comment on above: Performed By: #### 2 40699 #### [facility],[address] [place] [address] CO2 [Moles/Vol] 35.5 mmol/L High 21.0 - 32.0 [facility] Comment on above: Performed By: #### 2 43213 #### [facility],[address] [place] [address] Creatinine [Mass/Vol] 0.76 mg/dL Normal 0.55 - 1.02 [facility] Comment on above: Result Comment: VERI FIED BY REPEAT ANALYSIS Performed By: #### 2 75442 #### [facility],[address] [place] [address] GFR/1.73 sq M.predicted among non-blacks MDRD (S/P/Bld) [Vol rate/Area] mL/min/{1.73_m2} Normal 60 - 999 [facility] Comment on above: Performed By: #### 2 90598 #### [facility],[address] [place] [address] Result Comment: ACCO RDING TO THE NATIONAL KIDNEY DISEASE EDUCATION PROGRAM(NKDE), A NORMAL eGFR IS A VALUE GREATER THAN OR EQUAL TO 60 ML/MIN/1.73 SQ METERS. CHRONIC KIDNEY DISEASE: <60mL/MIN/1.73 SQ METERS KIDNEY FAILURE: <15mL/MIN/1.73 SQ METERS THIS TEST SHOULD ONLY BE USED FOR PATIENTS 18 YEARS OF AGE AND OLDER. Glucose [Mass/Vol] 99 mg/dL Normal 74 - 106 [facility] Comment on above: Performed By: #### 2 49266 #### [facility],[address] [place], [place] [address] Potassium [Moles/Vol] 3.9 mmol/L Normal 3.5 - 5.1 [facility] Comment on above: Performed By: #### 2 13899 #### [facility],[address] [place] [address] Sodium [Moles/Vol] 140 mmol/L Normal 136 - 145 [facility] Comment on above: Performed By: #### 2 57718 #### [facility],[address] [place] [address] Urea nitrogen [Mass/Vol] 13 mg/dL Normal 7 - 18 [facility] Comment on above: Performed By: #### 2 12387 #### [facility],[address] [place] [address] CNPNon 06-15-2025 CNPN Telephone ([facility]) RAJENDRA LUCERO ([id number]) 1955 F Date Time Provider Department 06/15/25 RAJENDRA GOODMAN During your visit today, we recorded the following information about you: Hodan Quinn MA 06/15/2025 10:50 AM Signed Sherrell from [facility] phoned regarding order of NIV. Please return call [phone]. No other details were given. Sherrell aware nurse not available this morning. JESSICA Molina Linda, MA 06/15/2025 1:42 PM Signed Sherrell from [facility] asking if Paige could call her concerning [...] Date Reviewed: 06/04/2025 Reviewed by: Rajendra Goodman APRN.FILTERS ASSEMBLER - Fully Assessed Reason for Visit: Orders [...] as needed for wheezing/shortness of breath. - jacswyqeikb-gszoqjykn-rtoccbe r (TRELEGY ELLIPTA) 200-62.5-25 mcg inhalation powder [...] Encounter Status:Closed by PATR[facility]N Tele[facility] ([facility]) RAJENDRA LUCERO ([id number]) 1955 F Date Time Provider Department 06/14/25 RAJENDRA GOODMAN During your visit today, we recorded the following information about you: Jeanine Bedolla LPN 06/14/2025 10:32 AM Signed Kallie from [facility] called and would like to get some info faxed over for this patients NIV just to cover their bases as she is supposed to be discharged home this week. Fax number [phone] Attn: Kallie. YULIET Enriquez Brittney, HERRERA 06/14/2025 11:12 AM Signed Call received from [facility] in [place]. They are requesting most recent ABGs done within the last 90 days in order to bill Medicare for the NIV. According to notes, ABGs were done during recent hospitalization but unsure if it was at [facility] or [facility]. Please fax ABGs to [facility] at: . Sierra Ludwig RN June 14, 2025 11:12 AM Patricia Ha MA 06/15/2025 3:06 PM Signed Faxed as requested. Patricia Ha MA Allergies As of Date: 06/14/2025 Noted Allergy Reaction ALEVE (NAPROXEN) 05/31/2020 4 - Hives Comments: Hives, edema of hands within 1 hour of use NITROFURANTOIN 04/23/2025 2 - Rash Date Reviewed: 06/04/2025 Reviewed by: Rajendra Goodman APRN.FILTERS ASSEMBLER - Fully Assessed Reason for Visit: Results [...] as needed for wheezing/shortness of breath. - easgsjtfqhw-tlzgwtlrc-kqdtdqc r (TRELEGY ELLIPTA) 200-62.5-25 mcg inhalation powder [...] Encounter Status:Closed by [facility] RAJENDRA LUCERO ([id number]) 1955 F Date Time Provider Department 06/11/25 RAJENDRA GOODMAN During your visit today, we recorded the following information about you: Pito Izaguirre LPN 06/11/2025 1:08 PM Signed Patient called. Verified name and date of . States she is getting discharged [facility] the [facility], [facility] tomorrow. Patient understood NIV Machine through [facility]. Patient states that [facility] has not received an order for the NIV Machine. Patient is able to get calls on her cell phone at this time: . YULIET Flowers Kathleen, LPN 06/11/2025 1:14 PM Signed Noted. NIV orders faxed to [facility]. [place] LPN Allergies As of Date: 06/11/2025 Noted Allergy Reaction ALEVE (NAPROXEN) 05/31/2020 4 - Hives Comments: Hives, edema of hands within 1 hour of use NITROFURANTOIN 04/23/2025 2 - Rash Date Reviewed: 06/04/2025 Reviewed by: Rajendra Goodman, JAKI.[facility] - Fully Assessed Reason for Visit: Orders [...] as needed for wheezing/shortness of breath. - uvmefbzhwqe-fobkhlkln-punwgbp r (TRELEGY ELLIPTA) 200-62.5-25 mcg inhalation powder [...] Status:Closed by [place] on 06/11/25 Normal [facility] Cardiology Visit Reporton Cardiology Visit Report Normal [facility] CNOVon 06-04-2025 CNOV Office Visit (PULMWS ) RAJENDRA LUCERO ([id number]) 1955 F Date Time Provider Department 06/04/25 8:00 AM RAJENDRA GOODMAN PULMWS During your visit today, we recorded the following information about you: Pulse Respiration Blood pressure Weight 62/minute 24/minute 158/76 119 kg Rajendra Goodman, RESIDENCE LIFE COORDINATOR.FILTERS ASSEMBLER 06/15/2025 2:49 PM Addendum Pulmonary Medicine Patients name: Rajendra Palumbo PCP: Phuc Martines DO Recording using ambient [employer] software for draft documentation of the visit was discussed with the patient/authorized ict sales representative; all questions welcomed and answered. Patient/authorized ict sales representative agreed to proceed CC: hospital follow-up HPI: Rajendra Lucero is a 69 year old female former 87-ujss-zumm smoker, quitting in 2008 with PMH significant [...] not require intubation. She was discharged to half-way on baseline O2. She had an updated [...] (HCC) CHF (congestive heart failure) ([facility]) Chronic hypoxemic respiratory failure ([facility]) COPD (chronic obstructive pulmonary disease) ([facility]) 02/03/2010 Coronary artery disease No [place], CHF. No heart cath. Diverticulosis of colon [...] Commonly known as: CARDIZEM CD, CARTIA XT ISVAN C ORAL FARXIGA 10 mg tablet Generic [...] ELLIPTA 200-62.5-25 mcg inhalation powder Generic drug: woeaabhqhlh-wewoiytom-ffdlhlx r Inhale 1 Puff as instructed once [...] unchanged. .. (more content not included)... Normal [facility] BMP with eGFRon 05-31-2025 AGE 69 years Normal [facility] Comment on above: Performed By: #### 2 36044 #### [place] [address] Anion gap [Moles/Vol] 4 mmol/L Low 10 - 20 [facility] Comment on above: Performed By: #### 2 88645 #### [facility],[address] [place] [address] BMP with eGFR Normal [facility] Comment on above: Result Comment: BASI C METABOLIC PANEL Performed By: #### 2 19336 #### [facility],[address] [place] [address] Calcium [Mass/Vol] 8.3 mg/dL Low 8.5 - 10.1 [facility] Comment on above: Performed By: #### 2 61635 #### [place] [address] Chloride [Moles/Vol] 104 mmol/L Normal 98 - 107 [facility] Comment on above: Performed By: #### 2 17663 #### [place] [id number] CO2 [Moles/Vol] 41.3 mmol/L Critically high 21.0 - 32.0 [facility] Comment on above: Result Comment: RESU LTS VERIFIED BY REPEAT ANALYSIS { CALLED TO HERRERA LESTER BY KG @ 1027 { READ BACK BY HERRERA LESTER RA @ 1022 Performed By: #### 2 96167 #### [facility],[address] [place] [address]995 Creatinine [Mass/Vol] 0.76 mg/dL Normal 0.55 - 1.02 [facility] Comment on above: Performed By: #### 2 30107 #### [facility],[address] [place] [address]3486 GFR/1.73 sq M.predicted among non-blacks MDRD (S/P/Bld) [Vol rate/Area] mL/min/{1.73_m2} Normal 60 - 999 [facility] Comment on above: Performed By: #### 2 91394 #### [facility],[address] [place] [address] Result Comment: ACCO RDING TO THE NATIONAL KIDNEY DISEASE EDUCATION PROGRAM(NKDE), A NORMAL eGFR IS A VALUE GREATER THAN OR EQUAL TO 60 ML/MIN/1.73 SQ METERS. CHRONIC KIDNEY DISEASE: <60mL/MIN/1.73 SQ METERS KIDNEY FAILURE: <15mL/MIN/1.73 SQ METERS THIS TEST SHOULD ONLY BE USED FOR PATIENTS 18 YEARS OF AGE AND OLDER. Glucose [Mass/Vol] 113 mg/dL High 74 - 106 [facility] Comment on above: Performed By: #### 2 07171 #### [facility],[address] [place] [address]17 Potassium [Moles/Vol] 3.5 mmol/L Normal 3.5 - 5.1 [facility] Comment on above: Performed By: #### 2 63299 #### [facility],[address] [place] [address] 06863 Sodium [Moles/Vol] 146 mmol/L High 136 - 145 [facility] Comment on above: Performed By: #### 2 58449 #### [facility],[address] [place] [address] 59399 Urea nitrogen [Mass/Vol] 11 mg/dL Normal 7 - 18 [facility] Comment on above: Performed By: #### 2 94619 #### [facility],[address] [place] [address] 62388 BMP with eGFRon 05-24-2025 AGE 69 years Normal [facility] Comment on above: Performed By: #### 2 31331 #### [facility],[address] [place] [address] 79450 Anion gap [Moles/Vol] 6 mmol/L Low 10 - 20 [facility] Comment on above: Performed By: #### 2 55445 #### [facility],[address] [place] [address] 06733 BMP with eGFR Normal [facility] Comment on above: Result Comment: BASI C METABOLIC PANEL Performed By: #### 2 72772 #### [facility],[address] [place] [address] 15929 Calcium [Mass/Vol] 8.7 mg/dL Normal 8.5 - 10.1 [facility] Comment on above: Performed By: #### 2 90649 #### [facility],[address] [place] [address] 05645 Chloride [Moles/Vol] 103 mmol/L Normal 98 - 107 [facility] Comment on above: Performed By: #### 2 38864 #### [facility],[address] [place] [address] 30487 CO2 [Moles/Vol] 42.1 mmol/L Critically high 21.0 - 32.0 [facility] Comment on above: Result Comment: { CA LLED TO NANCY SILVERMAN BY MY AT 10:12 { READ BACK BY NANCY SILVERMAN RA MY AT 10:12 Performed By: #### 2 75954 #### [facility],[address] [place] [address] 03352 Creatinine [Mass/Vol] 0.92 mg/dL Normal 0.55 - 1.02 [facility] Comment on above: Performed By: #### 2 04205 #### [facility],[address] [place] [address] 89595 GFR/1.73 sq M.predicted among non-blacks MDRD (S/P/Bld) [Vol rate/Area] mL/min/{1.73_m2} Normal 60 - 999 [facility] Comment on above: Performed By: #### 2 69019 #### [facility],[address] [place] [address] Result Comment: ACCO RDING TO THE NATIONAL KIDNEY DISEASE EDUCATION PROGRAM(NKDE), A NORMAL eGFR IS A VALUE GREATER THAN OR EQUAL TO 60 ML/MIN/1.73 SQ METERS. CHRONIC KIDNEY DISEASE: <60mL/MIN/1.73 SQ METERS KIDNEY FAILURE: <15mL/MIN/1.73 SQ METERS THIS TEST SHOULD ONLY BE USED FOR PATIENTS 18 YEARS OF AGE AND OLDER. Glucose [Mass/Vol] 75 mg/dL Normal 74 - 106 [facility] Comment on above: Performed By: #### 2 91490 #### [facility],[address] [place] [address] 54782 Potassium [Moles/Vol] 3.1 mmol/L Low 3.5 - 5.1 [facility] Comment on above: Performed By: #### 2 40406 #### [facility],[address] [place] [address] 29588 Sodium [Moles/Vol] 148 mmol/L High 136 - 145 [facility] Comment on above: Performed By: #### 2 99630 #### [facility],[address] [place] [address] 41365 Urea nitrogen [Mass/Vol] 20 mg/dL High 7 - 18 [facility] Comment on above: Performed By: #### 2 33538 #### [address],[place] [address] CBC + DIFFon 05-21-2025 Baso # 0.01 x10EE3/UL Normal 0.00 - 0.10 [facility] Comment on above: Performed By: #### 2 23562 #### [facility],[address] [place] [address] 90261 Basophils/100 WBC (Bld) 0.1 % Normal 0.0 - 2.0 [facility] Comment on above: Performed By: #### 2 47600 #### [facility],[address] [place] [address] 05002 CBC + DIFF Normal [facility] Comment on above: Result Comment: CBC- COMPLETE BLOOD COUNT Performed By: #### 2 50900 #### [facility],[address] [place], [place] [address] EO # 0.12 x10EE3/UL Normal 0.00 - 0.50 [facility] Comment on above: Performed By: #### 2 96870 #### [facility],[address] [place] [address] 91813 Eosinophils/100 WBC (Bld) 1.2 % Normal 0.0 - 7.0 [facility] Comment on above: Performed By: #### 2 70304 #### [facility],[address] [place] [address] 97231 Erythrocyte distribution width (RBC) [Ratio] 14.5 % Normal 12.0 - 15.6 [facility] Comment on above: Performed By: #### 2 73952 #### [facility],[address] [place] [address] 60842 Hematocrit (Bld) [Volume fraction] 31.5 % Low 34.0 - 46.0 [facility] Comment on above: Performed By: #### 2 64069 #### [facility],[address] [place] [address] 61849 Hemoglobin (Bld) [Mass/Vol] 10.2 g/dL Low 12.0 - 16.0 [facility] Comment on above: Performed By: #### 2 76830 #### [facility],[address] [place] [address] Lymph # 0.70 x10EE3/UL Low 0.80 - 2.80 [facility] Comment on above: Performed By: #### 2 56781 #### [facility],[address] [place] [address] Lymphocytes/100 WBC (Bld) 7.0 % Low 20.0 - 45.0 [facility] Comment on above: Performed By: #### 2 37271 #### [facility],[address] [place] [address] MANUAL DIFF N/A Normal [facility] Comment on above: Performed By: #### 2 73836 #### [facility],[address] [place] [address] MCH (RBC) [Entitic mass] 31 pg Normal 27 - 33 [facility] Comment on above: Performed By: #### 2 44080 #### [facility],[address] [place] [address] MCHC 32 X10 3 Normal 32 - 36 [facility] Comment on above: Performed By: #### 2 89173 #### [facility],[address] [place], [place] [address] MCV (RBC) [Entitic vol] 97 fL Normal 80 - 99 [facility] Comment on above: Performed By: #### 2 67560 #### [facility],[address] [place] [address] 52383 [place] # 0.62 x10EE3/UL Normal 0.20 - 1.00 [facility] Comment on above: Performed By: #### 2 71065 #### [facility],[address] [place], [place] [phone] MONOS % 6.2 % Normal 0.0 - 10.0 [facility] Comment on above: Performed By: #### 2 19332 #### [facility],[address] [place] [address] 42081 Morphology Kenny (Bld) [Interp] N/A Normal [facility] Comment on above: Performed By: #### 2 92554 #### [facility],[address] [place] [address] 99607 Neut # 8.56 x10EE3/UL High 1.50 - 7.10 [facility] Comment on above: Performed By: #### 2 60906 #### [facility],[address] [place] [address] 53993 Neutrophils/100 WBC (Bld) 85.6 % High 46.0 - 76.0 [facility] Comment on above: Performed By: #### 2 20443 #### [facility],[address] [place] [address] 07408 PLATELET 283 x10EE3/UL Normal 150 - 450 [facility] Comment on above: Performed By: #### 2 10033 #### [facility],[address] [place] [address] 15247 Platelet mean volume (Bld) [Entitic vol] 9.3 fL Normal 6.6 - 10.5 [facility] Comment on above: Result Comment: AUTO MATED DIFFERENTIAL Performed By: #### 2 43384 #### [facility],[address] [place] [address] 21493 RBC 3.25 x 10EE6/UL Low 4.10 - 5.30 [facility] Comment on above: Performed By: #### 2 98401 #### [facility],[address] [place] [address] 85319 WBC 10.0 x 10EE3/UL Normal 4.5 - 10.8 [facility] Comment on above: Performed By: #### 2 57210 #### [facility],[address] [place] [address] 43225 CMP with eGFRon 05-21-2025 AGE 69 years Normal [facility] Comment on above: Performed By: #### 2 65814 #### [facility],[address] [place] [address] 75016 Albumin [Mass/Vol] 2.4 g/dL Low 3.4 - 5.0 [facility] Comment on above: Performed By: #### 2 84703 #### [facility],[address] [place] [address] 74714 Albumin/Globulin [Mass ratio] 0.6 {ratio} Low 0.9 - 1.6 [facility] Comment on above: Performed By: #### 2 11799 #### [facility],[address] [place] [address] 41518 ALK PHOS 63 U/L Normal 46 - 116 [facility] Comment on above: Performed By: #### 2 44999 #### [facility],[address] [place] [address] 85939 ALT [Catalytic activity/Vol] 20 U/L Normal 16 - 63 [facility] Comment on above: Performed By: #### 2 25618 #### [facility],[address] [place] [address] 06814 Anion gap [Moles/Vol] 1 mmol/L Low 10 - 20 [facility] Comment on above: Performed By: #### 2 92307 #### [facility],[address] [place] [address] 21488 AST [Catalytic activity/Vol] 11 U/L Low 13 - 39 [facility] Comment on above: Performed By: #### 2 73112 #### [facility],[address] [place] [address] 65727 B/C RATIO 26 ratio Normal 0 - 30 [facility] Comment on above: Performed By: #### 2 00296 #### [facility],[address] [place] [address] 12613 Bilirubin [Mass/Vol] 0.6 mg/dL Normal 0.2 - 1.0 [facility] Comment on above: Performed By: #### 2 47218 #### [address] [address] Calcium [Mass/Vol] 8.6 mg/dL Normal 8.5 - 10.1 [facility] Comment on above: Performed By: #### 2 25871 #### [address] [address] Chloride [Moles/Vol] 105 mmol/L Normal 98 - 107 [facility] Comment on above: Performed By: #### 2 01378 #### [facility],[address] [place] [address] 08177 CMP with eGFR Normal [facility] Comment on above: Result Comment: COMP REHENSIVE METABOLIC PANEL Performed By: #### 2 05629 #### [address] [address] CO2 [Moles/Vol] 44.0 mmol/L Critically high 21.0 - 32.0 [facility] Comment on above: Result Comment: { CA LLED TO NANCY SILVERMAN MY AT 08:15 { READ BACK BY GERALD CASE MY AT 08:15 Performed By: #### 2 46919 #### [address] [address] Creatinine [Mass/Vol] 0.77 mg/dL Normal 0.55 - 1.02 [facility] Comment on above: Performed By: #### 2 38907 #### [address] [address] GFR/1.73 sq M.predicted among non-blacks MDRD (S/P/Bld) [Vol rate/Area] mL/min/{1.73_m2} Normal 60 - 999 [facility] Comment on above: Performed By: #### 2 59862 #### [place] [id number] Result Comment: ACCO RDING TO THE NATIONAL KIDNEY DISEASE EDUCATION PROGRAM(NKDE), A NORMAL eGFR IS A VALUE GREATER THAN OR EQUAL TO 60 ML/MIN/1.73 SQ METERS. CHRONIC KIDNEY DISEASE: <60mL/MIN/1.73 SQ METERS KIDNEY FAILURE: <15mL/MIN/1.73 SQ METERS THIS TEST SHOULD ONLY BE USED FOR PATIENTS 18 YEARS OF AGE AND OLDER. Globulin (S) [Mass/Vol] 3.9 g/dL High 1.5 - 3.8 [facility] Comment on above: Performed By: #### 2 04451 #### [facility],[address] [place] [address] 66617 Glucose [Mass/Vol] 99 mg/dL Normal 74 - 106 [facility] Comment on above: Performed By: #### 2 60810 #### [facility],[address] [place] [address] 54760 Potassium [Moles/Vol] 3.3 mmol/L Low 3.5 - 5.1 [facility] Comment on above: Performed By: #### 2 88995 #### [facility],[address] [place] [address] 45121 Protein [Mass/Vol] 6.3 g/dL Low 6.4 - 8.2 [facility] Comment on above: Performed By: #### 2 74863 #### [facility],[address] [place] [address] 24997 Sodium [Moles/Vol] 147 mmol/L High 136 - 145 [facility] Comment on above: Performed By: #### 2 38842 #### [facility],[address] [place] [address] 83279 Urea nitrogen [Mass/Vol] 20 mg/dL High 7 - 18 [facility] Comment on above: Performed By: #### 2 12661 #### [facility],[address] [place] [address] 83611 LIPID PROFILEon 05-21-2025 Cholesterol [Mass/Vol] 101 mg/dL Normal 0 - 240 [facility] Comment on above: Performed By: #### 2 27689 #### [facility],[address] [place] [address] 62078 Cholesterol in HDL [Mass/Vol] 49 mg/dL Normal 40 - 60 [facility] Comment on above: Performed By: #### 2 84306 #### [facility],[address] [place] [address] 83366 Cholesterol in LDL [Mass/Vol] 34 mg/dL Normal 0 - 129 [facility] Comment on above: Performed By: #### 2 15990 #### [facility],[address] [place] [address] 15324 Cholesterol.total/Cho lesterol in HDL [Mass ratio] 2.1 {ratio} Normal 0.0 - 5.0 [facility] Comment on above: Performed By: #### 2 34887 #### [facility],[address] [place] [address] 72876 Lipid 1996 panel Normal [facility] Comment on above: Result Comment: LIPI D PROFILE Performed By: #### 2 92921 #### [facility],[address] [place] [address] 60011 Triglyceride [Mass/Vol] 90 mg/dL Normal 0 - 150 [facility] Comment on above: Performed By: #### 2 92383 #### [facility],[address] [place] [address] 93518 Discharge Instructionon 04-28 Discharge Instruction Normal [facility] Absolute lymphocyte countOrd ered By: George Polanco on 05-16-2025 Lymphocytes Auto (Unsp spec) [#/Vol] 0.28 10*3/uL Low 0.83-4.51 [facility] Absolute neutrophil countOrd ered By: George Polanco on 05-16-2025 Neutrophils (Bld) [#/Vol] 8.3 10*3/uL High 2.0-7.7 [facility] Anion gap in Serum or Plasma Ordered By: George Polanco on 05-16-2025 Anion gap [Moles/Vol] 10 mmol/L 5-15 [facility] Automated lymphocyte count a s percentage of total leukocytesOrdered By: George Polanco on 05-16-2025 Lymphocytes/100 WBC Auto (Unsp spec) 3.2 % Low 19-41 [facility] BUN/creatinine ratioOrdered By: George Polanco on 05-16-2025 Urea nitrogen/Creatinine [Mass ratio] 46.8 mg/mg High 08-16 [facility] Basic Metabolic Profile (BMP )on 05-16-2025 BUN/CRE 46.8 RATIO High 08-16 [facility] Comment on above: Performed By: #### L 500.2500, L100.0100 ####[facility] [address] [place], [address] Calcium [Mass/Vol] 9.2 mg/dL Normal 7.6-11.0 [facility] Comment on above: Performed By: #### L 500.2500, L100.0100 ####[facility] [address] [place], [address] Chloride [Moles/Vol] 91 mmol/L Low 98-108 [facility] Comment on above: Performed By: #### L 500.2500, L100.0100 ####[facility] [address] [place], [address] CO2 [Moles/Vol] 39.8 mmol/L High 21.0-32.0 [facility] Comment on above: Performed By: #### L 500.2500, L100.0100 ####[facility] [address] [place], [address] Creatinine [Mass/Vol] 0.66 mg/dL Low 0.70-1.20 [facility] Comment on above: Performed By: #### L 500.2500, L100.0100 ####[facility] [address] [place], [address] ECRCL 86.60 ml/min Normal 50-250 [facility] Comment on above: Performed By: #### L 500.2500, L100.0100 ####[facility] [address] [place], [address] GAP 10 Normal 5-15 [facility] Comment on above: Performed By: #### L 500.2500, L100.0100 ####[facility] [address] [place], [address] GFR/1.73 sq M.predicted among non-blacks MDRD (S/P/Bld) [Vol rate/Area] 96 mL/min/{1.73_m2} Normal >60 [facility] Comment on above: Result Comment: mL/m in/1.73m2 CKD-EPI Creatinine Equation (2020) Performed By: #### L 500.2500, L100.0100 ####[facility] [address] [place], [address] Glucose [Mass/Vol] 162 mg/dL High 70-99 [facility] Comment on above: Performed By: #### L 500.2500, L100.0100 ####[facility] [address] [place], [address] Potassium [Moles/Vol] 4.5 mmol/L Normal 3.3-5.1 [facility] Comment on above: Result Comment: Hemo lysis present, Results??could be affected.?? Performed By: #### L 500.2500, L100.0100 ####[facility] [address] [place], [address] Sodium [Moles/Vol] 141 mmol/L Normal 133-145 [facility] Comment on above: Performed By: #### L 500.2500, L100.0100 ####[facility] [address] [place], [address] Urea nitrogen [Mass/Vol] 31 mg/dL High 4-19 [facility] Comment on above: Performed By: #### L 500.2500, L100.0100 ####[facility] [address] [place], [place], [id number] Basophil percentageOrdered B y: George Polanco on 05-16-2025 Basophils/100 WBC (Bld) 0.1 % 0-1 [facility] CBC W/Diff, Automatedon 04-28-2024 Absolute Lymph 0.28 X10 3/uL Low 0.83-4.51 [facility] Comment on above: Performed By: #### L 500.2500, L100.0100 ####[facility] [address] [place], [address] Absolute Neut 8.3 X10 3/uL High 2.0-7.7 [facility] Comment on above: Performed By: #### L 500.2500, L100.0100 ####[facility] [address] [place], [address] Basophils/100 WBC (Bld) 0.1 % Normal 0-1 [facility] Comment on above: Performed By: #### L 500.2500, L100.0100 ####[facility] [address] [place], [address] Eosinophils/100 WBC (Bld) 0.0 % Normal 0-5 [facility] Comment on above: Performed By: #### L 500.2500, L100.0100 ####[facility] [address] [place], [address] Erythrocyte distribution width (RBC) [Ratio] 15.4 % High 11.6-14.6 [facility] Comment on above: Performed By: #### L 500.2500, L100.0100 ####[facility] [address] [place], [address] Hematocrit (Bld) [Volume fraction] 30.9 % Low 37-47 [facility] Comment on above: Performed By: #### L 500.2500, L100.0100 ####[facility] [address] [place], [address] Hemoglobin (Bld) [Mass/Vol] 9.5 g/dL Low 12.0-15.0 [facility] Comment on above: Performed By: #### L 500.2500, L100.0100 ####[facility] [address] [place], [address] IG% 0.600 Normal 0.0-0.9 [facility] Comment on above: Result Comment: IG% - Immature Granulocytes (promyelocytes, myelocytes andmetamyelocytes) > 1% indicates that a LEFT SHIFT is Present. Performed By: #### L 500.2500, L100.0100 ####[facility] [address] [place], [address] Lymphocytes/100 WBC (Bld) 3.2 % Low 19-41 [facility] Comment on above: Performed By: #### L 500.2500, L100.0100 ####[facility] [address] [place], [address] MCH (RBC) [Entitic mass] 30.3 pg Normal 27.0-32.0 [facility] Comment on above: Performed By: #### L 500.2500, L100.0100 ####[facility] [address] [place], [address] MCHC (RBC) [Mass/Vol] 30.7 g/dL Low 32-36 [facility] Comment on above: Performed By: #### L 500.2500, L100.0100 ####[facility] [address] [place], [address] MCV (RBC) [Entitic vol] 98.4 fL Normal 81-99 [facility] Comment on above: Performed By: #### L 500.2500, L100.0100 ####[facility] [address] [place], [address] Monocytes/100 WBC (Bld) 2.9 % Normal 0-10 [facility] Comment on above: Performed By: #### L 500.2500, L100.0100 ####[facility] [address] [place], [address] Neutrophils/100 WBC (Bld) 93.2 % High 47-70 [facility] Comment on above: Performed By: #### L 500.2500, L100.0100 ####[facility] [address] [place], [address] Nucleated RBC (Bld) [#/Vol] 0 10*3/uL Normal 0-5 [facility] Comment on above: Performed By: #### L 500.2500, L100.0100 ####[facility] [address] [place], [address] Platelet mean volume (Bld) [Entitic vol] 11.5 fL Normal 6.2-12.0 [facility] Comment on above: Performed By: #### L 500.2500, L100.0100 ####[facility] [address] [place], [address] Platelets (Bld) [#/Vol] 142 10*3/uL Low 150-450 [facility] Comment on above: Performed By: #### L 500.2500, L100.0100 ####[facility] [address] [place], [address] RBC (Bld) [#/Vol] 3.14 10*6/uL Low 4.2-5.[address] [facility] Comment on above: Performed By: #### L 500.2500, L100.0100 ####[facility] [address] [place], [address] RDW SD 54.3 fl High 35.1-43.9 [facility] Comment on above: Performed By: #### L 500.2500, L100.0100 ####[facility] [address] [place], [address] WBC (Bld) [#/Vol] 8.9 10*3/uL Normal 4.4-11.0 [facility] Comment on above: Performed By: #### L 500.2500, L100.0100 ####[facility] [address] [place], [address] Carbon dioxide, total [Moles /volume] in Central venous bloodOrdered By: George Polanco on 05-16-2025 CO2 [Moles/Vol] 39.8 mmol/L High 21.0-32.0 [facility] Chloride assayOrdered By: Ashley Polanco on 05-16-2025 Chloride [Moles/Vol] 91 mmol/L Low 98-108 [facility] Eosinophil percentageOrdered By: George Polanco on 05-16-2025 Eosinophils/100 WBC (Bld) 0.0 % 0-5 [facility] Erythrocyte distribution wid th ratioOrdered By: George Polanco on 05-16-2025 Erythrocyte distribution width (RBC) [Ratio] 15.4 % High 11.6-14.6 [facility] Erythrocyte distribution wid th standard deviationOrdered By: George Polanco on 05-16-2025 Erythrocyte distribution width (RBC) [Ratio] 54.3 fl High 35.1-43.9 [facility] Glomerular filtration rate ( GFR) estimation/1.73 sq m using serum, plasma, or whole bOrdered By: George Polanco on 05-16-2025 GFR/1.73 sq M.predicted among non-blacks MDRD (S/P/Bld) [Vol rate/Area] 96 mL/min/{1.73_m2} >60 [facility] Comment on above: mL/min/1.73m2 CKD-EP I Creatinine Equation (2020) Hematocrit Auto (Bld) [Volum e fraction]Ordered By: George Polanco on 05-16-2025 Hematocrit (Bld) [Volume fraction] 30.9 % Low 37-47 [facility] Hemoglobin measurementOrdere d By: George Polanco on 05-16-2025 Hemoglobin (Bld) [Mass/Vol] 9.5 g/dL Low 12.0-15.0 [facility] Immature granulocytes/100 WB C Auto (Bld)Ordered By: George Polanco on 05-16-2025 Immature granulocytes/100 WBC (Bld) 0.600 % 0.0-0.9 [facility] Comment on above: IG% - Immature Granu locytes (promyelocytes, myelocytes and metamyelocytes) > 1% indicates that a LEFT SHIFT is Present. MCV (mean corpuscular volume ) determinationOrdered By: George Polanco on 05-16-2025 MCV (RBC) [Entitic vol] 98.4 fL 81-99 [facility] Mean corpuscular hemoglobin (MCH) determinationOrdered By: George Polanco on 05-16-2025 MCH (RBC) [Entitic mass] 30.3 pg 27.0-32.0 [facility] Mean corpuscular hemoglobin concentration (MCHC) determinationOrdered By: George Polanco on 05-16-2025 MCHC (RBC) [Mass/Vol] 30.7 g/dL Low 32-36 [facility] Mean platelet volume determi nationOrdered By: George Polanco on 05-16-2025 Platelet mean volume (Bld) [Entitic vol] 11.5 fL 6.2-12.0 [facility] Monocyte percentageOrdered B y: George Polanco on 05-16-2025 Monocytes/100 WBC (Bld) 2.9 % 0-10 [facility] Neutrophil percentageOrdered By: George Polanco on 05-16-2025 Neutrophils/100 WBC (Bld) 93.2 % High 47-70 [facility] Nucleated red blood cell per centageOrdered By: George Polanco on 05-16-2025 Nucleated RBC/100 WBC (Bld) [Ratio] 0 % 0-5 [facility] Platelet countOrdered By: Ashley Polanco on 05-16-2025 Platelets (Bld) [#/Vol] 142 10*3/uL Low 150-450 [facility] Potassium measurement (mass/ volume)Ordered By: George Polanco on 05-16-2025 Potassium (Unsp spec) [Mass/Vol] 4.5 mmol/L 3.3-5.1 [facility] Comment on above: Hemolysis present, R esults could be affected. RBC Auto (Bld) [#/Vol]Ordere d By: George Polanco on 05-16-2025 RBC (Bld) [#/Vol] 3.14 10*6/uL Low 4.2-5.[address] [facility] Serum creatinine measurement (mass/volume)Ordered By: George Polanco on 05-16-2025 Creatinine [Mass/Vol] 0.66 mg/dL Low 0.70-1.20 [facility] Serum glucose measurement (m ass/volume)Ordered By: George Polanco on 05-16-2025 Glucose [Mass/Vol] 162 mg/dL High 70-99 [facility] Serum or plasma calcium tad urement (mass/volume)Ordered By: George Polanco on 05-16-2025 Calcium [Mass/Vol] 9.2 mg/dL 7.6-11.0 [facility] Serum or plasma urea nitroge n measurement (mass/volume)Ordered By: George Polanco on 05-16-2025 Urea nitrogen [Mass/Vol] 31 mg/dL High - [facility] Sodium levelOrdered By: Orlando Polanco on 05-16-2025 Sodium [Moles/Vol] 141 mmol/L 133-145 [facility] White blood cell (WBC) count Ordered By: George Polanco on 05-16-2025 WBC (Bld) [#/Vol] 8.9 10*3/uL 4.4-11.0 [facility] Basic Metabolic Profile (BMP )on 05-15-2025 BUN/CRE 36.8 RATIO High - [facility] Comment on above: Performed By: #### L 100.0100, L500.2500 ####[facility] [address] [place], [place], [address] Calcium [Mass/Vol] 9.6 mg/dL Normal 7.6-11.0 [facility] Comment on above: Performed By: #### L 100.0100, L500.2500 ####[facility] [address] [place], [address] Chloride [Moles/Vol] 92 mmol/L Low 98-108 [facility] Comment on above: Performed By: #### L 100.0100, L500.2500 ####[facility] [address] [place], [address] CO2 [Moles/Vol] 40.8 mmol/L High 21.0-32.0 [facility] Comment on above: Performed By: #### L 100.0100, L500.2500 ####[facility] [address] [place], [address] Creatinine [Mass/Vol] 0.63 mg/dL Low 0.70-1.20 [facility] Comment on above: Performed By: #### L 100.0100, L500.2500 ####[facility] [address] [place], [address] ECRCL 86.60 ml/min Normal 50-250 [facility] Comment on above: Performed By: #### L 100.0100, L500.2500 ####[facility] [address] [place], [address] GAP 12 Normal 5-15 [facility] Comment on above: Performed By: #### L 100.0100, L500.2500 ####[facility] [address] [place], [address] GFR/1.73 sq M.predicted among non-blacks MDRD (S/P/Bld) [Vol rate/Area] 97 mL/min/{1.73_m2} Normal >60 [facility] Comment on above: Result Comment: mL/m in/1.73m2 CKD-EPI Creatinine Equation (2020) Performed By: #### L 100.0100, L500.2500 ####[facility] [address] [place], [address] Glucose [Mass/Vol] 137 mg/dL High 70-99 [facility] Comment on above: Performed By: #### L 100.0100, L500.2500 ####[facility] [address] [place], [address] Potassium [Moles/Vol] 4.6 mmol/L Normal 3.3-5.1 [facility] Comment on above: Performed By: #### L 100.0100, L500.2500 ####[facility] [address] [place], [address] Sodium [Moles/Vol] 144 mmol/L Normal 133-145 [facility] Comment on above: Performed By: #### L 100.0100, L500.2500 ####[facility] [address] [place], [address] Urea nitrogen [Mass/Vol] 23 mg/dL High 4-19 [facility] Comment on above: Performed By: #### L 100.0100, L500.2500 ####[facility] [address] [place], [address] CBC W/Diff, Automatedon 04-27 PLT EST A Normal [facility] Comment on above: Performed By: #### L 100.0100, L500.2500 ####[facility] [address] [place], [address] PLT MORPH CLUMPED Normal [facility] Comment on above: Performed By: #### L 100.0100, L500.2500 ####[facility] [address] [place], [address] Platelet estimateOrdered By: George Polanco on 05-15-2025 Platelets LM Ql (Bld) A ADEQ [facility] Platelet morphologyOrdered B y: George Polanco on 05-15-2025 Platelet morphology finding Nom (Bld) CLUMPED [facility] Basic Metabolic Profile (BMP )on 05-14-2025 BUN/CRE 30.8 RATIO High 10-20 [facility] Comment on above: Performed By: #### L 100.0500, L500.2500 ####[facility] [address] [place], [address] Calcium [Mass/Vol] 9.2 mg/dL Normal 7.6-11.0 [facility] Comment on above: Performed By: #### L 100.0500, L500.2500 ####[facility] [address] [place], [address] Chloride [Moles/Vol] 92 mmol/L Low 98-108 [facility] Comment on above: Performed By: #### L 100.0500, L500.2500 ####[facility] [address] [place], [address] CO2 [Moles/Vol] 47.9 mmol/L Invalid Interpretation Code 21.0-32.0 [facility] Comment on above: Result Comment: Crit ical Result(s) Called at: 05/14/2025-06:54 by: Mason.??Results read back by same. Performed By: #### L 100.0500, L500.2500 ####[facility] [address] [place], [address] Creatinine [Mass/Vol] 0.68 mg/dL Low 0.70-1.20 [facility] Comment on above: Performed By: #### L 100.0500, L500.2500 ####[facility] [address] [place], [address] ECRCL 86.60 ml/min Normal 50-250 [facility] Comment on above: Performed By: #### L 100.0500, L500.2500 ####[facility] [address] [place], [address] GAP 7 Normal 5-15 [facility] Comment on above: Performed By: #### L 100.0500, L500.2500 ####[facility] [address] [place], [address] GFR/1.73 sq M.predicted among non-blacks MDRD (S/P/Bld) [Vol rate/Area] 95 mL/min/{1.73_m2} Normal >60 [facility] Comment on above: Result Comment: mL/m in/1.73m2 CKD-EPI Creatinine Equation (2020) Performed By: #### L 100.0500, L500.2500 ####[facility] [address] [place], [address] Glucose [Mass/Vol] 145 mg/dL High 70-99 [facility] Comment on above: Performed By: #### L 100.0500, L500.2500 ####[facility] [address], [address] Potassium [Moles/Vol] 3.8 mmol/L Normal 3.3-5.1 [facility] Comment on above: Performed By: #### L 100.0500, L500.2500 ####[facility] [address] [place], [address] Sodium [Moles/Vol] 147 mmol/L High 133-145 [facility] Comment on above: Performed By: #### L 100.0500, L500.2500 ####[facility] [address], [address] Urea nitrogen [Mass/Vol] 21 mg/dL High 4-19 [facility] Comment on above: Performed By: #### L 100.0500, L500.2500 ####[facility] [address] [place], [address] CBC-Complete Blood Cnt No Di ffon 05-14-2025 Erythrocyte distribution width (RBC) [Ratio] 15.3 % High 11.6-14.6 [facility] Comment on above: Performed By: #### L 100.0500, L500.2500 ####[facility] [address], [address] Hematocrit (Bld) [Volume fraction] 33.6 % Low 37-47 [facility] Comment on above: Performed By: #### L 100.0500, L500.2500 ####[facility] [address] [place], [address] Hemoglobin (Bld) [Mass/Vol] 9.9 g/dL Low 12.0-15.0 [facility] Comment on above: Performed By: #### L 100.0500, L500.2500 ####[facility] [address] [place], [address] MCH (RBC) [Entitic mass] 30.3 pg Normal 27.0-32.0 [facility] Comment on above: Performed By: #### L 100.0500, L500.2500 ####[facility] [address] [place], [address] MCHC (RBC) [Mass/Vol] 29.5 g/dL Low 32-36 [facility] Comment on above: Performed By: #### L 100.0500, L500.2500 ####[facility] [address] [place], [address] MCV (RBC) [Entitic vol] 102.8 fL High 81-99 [facility] Comment on above: Performed By: #### L 100.0500, L500.2500 ####[facility] [address] [place], [address] Platelet mean volume (Bld) [Entitic vol] 10.7 fL Normal 6.2-12.0 [facility] Comment on above: Performed By: #### L 100.0500, L500.2500 ####[facility] [address] [place], [address] Platelets (Bld) [#/Vol] 269 10*3/uL Normal 150-450 [facility] Comment on above: Performed By: #### L 100.0500, L500.2500 ####[facility] [address] [place], [address] RBC (Bld) [#/Vol] 3.27 10*6/uL Low 4.2-5.[address] [facility] Comment on above: Performed By: #### L 100.0500, L500.2500 ####[facility] [address] [place], [address] RDW SD 57.1 fl High 35.1-43.9 [facility] Comment on above: Performed By: #### L 100.0500, L500.2500 ####[facility] [address] [place], [address] WBC (Bld) [#/Vol] 8.5 10*3/uL Normal 4.4-11.0 [facility] Comment on above: Performed By: #### L 100.0500, L500.2500 ####[facility] [address] [place], [address] Absolute lymphocyte countOrd ered By: Malika Hernandez on 05-13-2025 Lymphocytes Auto (Unsp spec) [#/Vol] 0.61 10*3/uL Low 0.83-4.51 [facility] Absolute neutrophil countOrd ered By: Malika Hernandez on 05-13-2025 Neutrophils (Bld) [#/Vol] 8.6 10*3/uL High 2.0-7.7 [facility] Anion gap in Serum or Plasma Ordered By: Malika Hernandez on 05-13-2025 Anion gap [Moles/Vol] 14 mmol/L 5-15 [facility] Assessment of wrist artery p atency prior to arterial punctureOrdered By: Linwood Ivy on 05-13-2025 Arterial patency Wrist artery --pre arterial puncture Positive [facility] Automated lymphocyte count a s percentage of total leukocytesOrdered By: Malika Hernandez on 05-13-2025 Lymphocytes/100 WBC Auto (Unsp spec) 6.1 % Low 19-41 [facility] BUN/creatinine ratioOrdered By: Malika Hernandez on 05-13-2025 Urea nitrogen/Creatinine [Mass ratio] 43.3 mg/mg High 10-20 [facility] Basophil percentageOrdered B y: Malika Hernandez on 05-13-2025 Basophils/100 WBC (Bld) 0.6 % 0-1 [facility] Bilirubin, totalOrdered By: Malika Hernandez on 05-13-2025 Bilirubin [Mass/Vol] 0.51 mg/dL 0.00-1.30 [facility] Blood Gases by CPSon 025 RIO TEST Positive Normal [facility] Comment on above: Performed By: #### L 9000.0800 ####[facility] [address] [place], [address] Base excess Calc (Bld) [Moles/Vol] 27 mmol/L High -2 to +2 [facility] Comment on above: Performed By: #### L 9000.0800 ####[facility] [address] [place], [address] Blood Gas Type ART Normal [facility] Comment on above: Performed By: #### L 9000.0800 ####[facility] [address] [place], [address] FI02 15.0 Normal [facility] Comment on above: Performed By: #### L 9000.0800 ####[facility] [address] [place], [address] HCO3 (Bld) [Moles/Vol] 52.6 mmol/L High 22-26 [facility] Comment on above: Performed By: #### L 9000.0800 ####[facility] [address] [place], [address] Mode Not entered Normal [facility] Comment on above: Performed By: #### L 9000.0800 ####[facility] [address] [place], [address] O2 Delivery Dev Cannula Normal [facility] Comment on above: Performed By: #### L 9000.0800 ####[facility] [address] [place], [address] pCO2 92.9 mmHg Invalid Interpretation Code 35-45 [facility] Comment on above: Performed By: #### L 9000.0800 ####[facility] [address] [place], [address] pH (Bld) 7.36 [pH] Normal 7.35-7.45 [facility] Comment on above: Performed By: #### L 9000.0800 ####[facility] [address] [place], [address] PO2 85 mmHG Normal 75-100 [facility] Comment on above: Performed By: #### L 9000.0800 ####[facility] [address] [place], [address] Read Back By Yes Normal [facility] Comment on above: Performed By: #### L 9000.0800 ####[facility] [address] [place], [address] Results To glauthia Normal [facility] Comment on above: Performed By: #### L 9000.0800 ####[facility] [address] [place], [address] SITE R Radial Normal [facility] Comment on above: Performed By: #### L 9000.0800 ####[facility] [address] [place], [address] SO2 95 Normal 95-99 [facility] Comment on above: Performed By: #### L 9000.0800 ####[facility] [address] [place], [address] Time Given 13:37:54 Normal [facility] Comment on above: Performed By: #### L 9000.0800 ####[facility] [address] [place], [address] TOTAL CO2 > 50 Normal [facility] Comment on above: Performed By: #### L 9000.0800 ####[facility] [address] [place], [address] Blood base excess determinat ionOrdered By: Linwood Ivy on 05-13-2025 Base excess Calc (BldV) [Moles/Vol] 27 mmol/L High -2-2 [facility] Blood bicarbonate measuremen tOrdered By: Linwood Ivy on 05-13-2025 HCO3 (Bld) [Moles/Vol] 52.6 mmol/L High 22-26 [facility] CBC W/Diff, Automatedon 04-27 Absolute Lymph 0.61 X10 3/uL Low 0.83-4.51 [facility] Comment on above: Performed By: #### L 503.7505, L500.4050, L100.0100 ####[facility] [address] [place], [address] Absolute Neut 8.6 X10 3/uL High 2.0-7.7 [facility] Comment on above: Performed By: #### L 503.7505, L500.4050, L100.0100 ####[facility] [address] [place], [address] Basophils/100 WBC (Bld) 0.6 % Normal 0-1 [facility] Comment on above: Performed By: #### L 503.7505, L500.4050, L100.0100 ####[facility] [address] [place], [address] Eosinophils/100 WBC (Bld) 0.1 % Normal 0-5 [facility] Comment on above: Performed By: #### L 503.7505, L500.4050, L100.0100 ####[facility] [address] [place], [address] Erythrocyte distribution width (RBC) [Ratio] 15.3 % High 11.6-14.6 [facility] Comment on above: Performed By: #### L 503.7505, L500.4050, L100.0100 ####[facility] [address] [place], [address] Hematocrit (Bld) [Volume fraction] 34.1 % Low 37-47 [facility] Comment on above: Performed By: #### L 503.7505, L500.4050, L100.0100 ####[facility] [address] [place], [address] Hemoglobin (Bld) [Mass/Vol] 10.1 g/dL Low 12.0-15.0 [facility] Comment on above: Performed By: #### L 503.7505, L500.4050, L100.0100 ####[facility] [address] [place], [address] IG% 0.700 Normal 0.0-0.9 [facility] Comment on above: Result Comment: IG% - Immature Granulocytes (promyelocytes, myelocytes andmetamyelocytes) > 1% indicates that a LEFT SHIFT is Present. Performed By: #### L 503.7505, L500.4050, L100.0100 ####[facility] [address] [place], [address] Lymphocytes/100 WBC (Bld) 6.1 % Low 19-41 [facility] Comment on above: Performed By: #### L 503.7505, L500.4050, L100.0100 ####[facility] [address] [place], [address] MCH (RBC) [Entitic mass] 30.0 pg Normal 27.0-32.0 [facility] Comment on above: Performed By: #### L 503.7505, L500.4050, L100.0100 ####[facility] [address] [place], [address] MCHC (RBC) [Mass/Vol] 29.6 g/dL Low 32-36 [facility] Comment on above: Performed By: #### L 503.7505, L500.4050, L100.0100 ####[facility] [address] [place], [address] MCV (RBC) [Entitic vol] 101.2 fL High 81-99 [facility] Comment on above: Performed By: #### L 503.7505, L500.4050, L100.0100 ####[facility] [address] [place], [address] Monocytes/100 WBC (Bld) 7.4 % Normal 0-10 [facility] Comment on above: Performed By: #### L 503.7505, L500.4050, L100.0100 ####[facility] [address] [place], [address] Neutrophils/100 WBC (Bld) 85.1 % High 47-70 [facility] Comment on above: Performed By: #### L 503.7505, L500.4050, L100.0100 ####[facility] [address] [place], [address] Nucleated RBC (Bld) [#/Vol] 0 10*3/uL Normal 0-5 [facility] Comment on above: Performed By: #### L 503.7505, L500.4050, L100.0100 ####[facility] [address] [place], [address] Platelet mean volume (Bld) [Entitic vol] 11.1 fL Normal 6.2-12.0 [facility] Comment on above: Performed By: #### L 503.7505, L500.4050, L100.0100 ####[facility] [address] [place], [address] Platelets (Bld) [#/Vol] 115 10*3/uL Low 150-450 [facility] Comment on above: Performed By: #### L 503.7505, L500.4050, L100.0100 ####[facility] [address] [place], [address] RBC (Bld) [#/Vol] 3.37 10*6/uL Low 4.2-5.[address] [facility] Comment on above: Performed By: #### L 503.7505, L500.4050, L100.0100 ####[facility] [address] [place], [address] RDW SD 56.6 fl High 35.1-43.9 [facility] Comment on above: Performed By: #### L 503.7505, L500.4050, L100.0100 ####[facility] [address] [place], [address] WBC (Bld) [#/Vol] 10.1 10*3/uL Normal 4.4-11.[address] [facility] Comment on above: Performed By: #### L 503.7505, L500.4050, L100.0100 ####[facility] [address] [place], [address] CTA Chest W/WO Contraston CTA Chest W/WO Contrast Normal [facility] Carbon dioxide, total [Moles /volume] in Central venous bloodOrdered By: Malika Hernandez on 05-13-2025 CO2 [Moles/Vol] 36.5 mmol/L High 21.0-32.0 [facility] Chloride assayOrdered By: Marcy gonsalez Mary on 05-13-2025 Chloride [Moles/Vol] 93 mmol/L Low 98-108 [facility] Comprehensive Metabolic Prof ilon 05-13-2025 Albumin [Mass/Vol] 3.1 g/dL Low 3.4-4.8 [facility] Comment on above: Performed By: #### L 503.7505, L500.4050, L100.0100 ####[facility] [address] [place], [address] Albumin/Globulin [Mass ratio] 0.8 {ratio} Low 0.9-2.4 [facility] Comment on above: Performed By: #### L 503.7505, L500.4050, L100.0100 ####[facility] [address] [place], [address] ALK PHOS 121 U/L High 35-104 [facility] Comment on above: Performed By: #### L 503.7505, L500.4050, L100.0100 ####[facility] [address] [place], [address] ALT [Catalytic activity/Vol] 18 U/L Normal <=34 [facility] Comment on above: Result Comment: Hemo lysis present, Results??could be affected.?? Performed By: #### L 503.7505, L500.4050, L100.0100 ####[facility] [address] [place], [address] AST [Catalytic activity/Vol] 27 U/L Normal <=31 [facility] Comment on above: Result Comment: Hemo lysis present, Results??could be affected.?? Performed By: #### L 503.7505, L500.4050, L100.0100 ####[facility] [address] [place], [address] Bilirubin [Mass/Vol] 0.51 mg/dL Normal 0.00-1.30 [facility] Comment on above: Performed By: #### L 503.7505, L500.4050, L100.0100 ####[facility] [address] [place], [address] BUN/CRE 43.3 RATIO High 10-20 [facility] Comment on above: Performed By: #### L 503.7505, L500.4050, L100.0100 ####[facility] [address] [place], [address] Calcium [Mass/Vol] 8.8 mg/dL Normal 7.6-11.0 [facility] Comment on above: Performed By: #### L 503.7505, L500.4050, L100.0100 ####[facility] [address] [place], [address] Chloride [Moles/Vol] 93 mmol/L Low 98-108 [facility] Comment on above: Performed By: #### L 503.7505, L500.4050, L100.0100 ####[facility] [address] [place], [address] CO2 [Moles/Vol] 36.5 mmol/L High 21.0-32.0 [facility] Comment on above: Performed By: #### L 503.7505, L500.4050, L100.0100 ####[facility] [address] [place], [address] Creatinine [Mass/Vol] 0.58 mg/dL Low 0.70-1.20 [facility] Comment on above: Performed By: #### L 503.7505, L500.4050, L100.0100 ####[facility] [address] [place], [address] ECRCL 86.37 ml/min Normal 50-250 [facility] Comment on above: Performed By: #### L 503.7505, L500.4050, L100.0100 ####[facility] [address] [place], [address] GAP 14 Normal 5-15 [facility] Comment on above: Performed By: #### L 503.7505, L500.4050, L100.0100 ####[facility] [address] [place], [address] GFR/1.73 sq M.predicted among non-blacks MDRD (S/P/Bld) [Vol rate/Area] 99 mL/min/{1.73_m2} Normal >60 [facility] Comment on above: Result Comment: mL/m in/1.73m2 CKD-EPI Creatinine Equation (2020) Performed By: #### L 503.7505, L500.4050, L100.0100 ####[facility] [address] [place], [address] Globulin (S) [Mass/Vol] 3.9 g/dL Normal 2.2-4.2 [facility] Comment on above: Performed By: #### L 503.7505, L500.4050, L100.0100 ####[facility] [address] [place], [address] Glucose [Mass/Vol] 97 mg/dL Normal 70-99 [facility] Comment on above: Performed By: #### L 503.7505, L500.4050, L100.0100 ####[facility] [address] [place], [address] Potassium [Moles/Vol] 4.7 mmol/L Normal 3.3-5.1 [facility] Comment on above: Result Comment: Hemo lysis present, Results??could be affected.?? Performed By: #### L 503.7505, L500.4050, L100.0100 ####[facility] [address] [place], [address] Sodium [Moles/Vol] 143 mmol/L Normal 133-145 [facility] Comment on above: Performed By: #### L 503.7505, L500.4050, L100.0100 ####[facility] [address] [place], [address] T PROT 7.0 g/dL Normal 5.9-8.4 [facility] Comment on above: Performed By: #### L 503.7505, L500.4050, L100.0100 ####[facility] [address] [place], [address] Urea nitrogen [Mass/Vol] 25 mg/dL High 4-19 [facility] Comment on above: Performed By: #### L 503.7505, L500.4050, L100.0100 ####[facility] [address] [place], [address] Emergency Department Summary on 05-13-2025 Emergency Department Summary Normal [facility] Eosinophil percentageOrdered By: Malika Hernandez on 05-13-2025 Eosinophils/100 WBC (Bld) 0.1 % 0-5 [facility] Erythrocyte distribution wid th ratioOrdered By: Malika Hernandez on 05-13-2025 Erythrocyte distribution width (RBC) [Ratio] 15.3 % High 11.6-14.6 [facility] Erythrocyte distribution wid th standard deviationOrdered By: Malika Hernandez on 05-13-2025 Erythrocyte distribution width (RBC) [Ratio] 56.6 fl High 35.1-43.9 [facility] Glomerular filtration rate ( GFR) estimation/1.73 sq m using serum, plasma, or whole bOrdered By: Malika Hernandez on 05-13-2025 GFR/1.73 sq M.predicted among non-blacks MDRD (S/P/Bld) [Vol rate/Area] 99 mL/min/{1.73_m2} >60 [facility] Comment on above: mL/min/1.73m2 CKD-EP I Creatinine Equation (2020) H AND P Exam - Hospitaliston 05-13-2025 H&P Exam - Hospitalist Normal [facility] Hematocrit Auto (Bld) [Volum e fraction]Ordered By: Malikacarlee Hernandez on 05-13-2025 Hematocrit (Bld) [Volume fraction] 34.1 % Low 37-47 [facility] Hemoglobin measurementOrdere d By: Malika Hernandez on 05-13-2025 Hemoglobin (Bld) [Mass/Vol] 10.1 g/dL Low 12.0-15.0 [facility] Immature granulocytes/100 WB C Auto (Bld)Ordered By: Malika Hernandez on 05-13-2025 Immature granulocytes/100 WBC (Bld) 0.700 % 0.0-0.9 [facility] Comment on above: IG% - Immature Granu locytes (promyelocytes, myelocytes and metamyelocytes) > 1% indicates that a LEFT SHIFT is Present. L499.0042on 05-13-2025 Trop T High Sen < 6 Normal <=14 [facility] Comment on above: Performed By: #### L 499.0042 ####[facility] [address] [place], [address] L501.4021on 05-13-2025 Trop T High Sen < 6 Normal <=14 [facility] Comment on above: Result Comment: Hemo lysis present, Results??could be affected.?? Performed By: #### L 501.4021 ####[facility] [address] [place], [address] L503.7505on 05-13-2025 Natriuretic peptide B (Bld) [Mass/Vol] 2554 pg/mL High <=900 [facility] Comment on above: Result Comment: Hear t Failure Unlikely: < 300 pg/mLHeart Failure Likely< 50 Years: > 450 pg/mL50-75 Years: > 900 pg/mL>75 Years: > 1800 pg/mL Performed By: #### L 503.7505, L500.4050, L100.0100 ####[facility] [address] [place], [address] Laboratory - Chemistry and C hemistry - challengeOrdered By: Malika Hernandez on 05-13-2025 AST [Catalytic activity/Vol] 27 U/L <32 [facility] Comment on above: Hemolysis present, R esults could be affected. MCV (mean corpuscular volume ) determinationOrdered By: Malika Hernandez on 05-13-2025 MCV (RBC) [Entitic vol] 101.2 fL High 81-99 [facility] Mean corpuscular hemoglobin (MCH) determinationOrdered By: Malika Hernandez on 05-13-2025 MCH (RBC) [Entitic mass] 30.0 pg 27.0-32.0 [facility] Mean corpuscular hemoglobin concentration (MCHC) determinationOrdered By: Malika Hernandez on 05-13-2025 MCHC (RBC) [Mass/Vol] 29.6 g/dL Low 32-36 [facility] Mean platelet volume determi nationOrdered By: Malika Hernandez on 05-13-2025 Platelet mean volume (Bld) [Entitic vol] 11.1 fL 6.2-12.0 [facility] Measurement, pHOrdered By: Yonatan Ivy on 05-13-2025 pH (Unsp spec) 7.36 [pH] 7.35-7.45 [facility] Monocyte percentageOrdered B y: Malika Hernandez on 05-13-2025 Monocytes/100 WBC (Bld) 7.4 % 0-10 [facility] Natriuretic peptide.B prohor gonzalo N-Terminal [Mass/volume] in Serum or PlasmaOrdered By: Malika Hernandez on 05-13-2025 Natriuretic peptide.B prohormone N-Terminal [Mass/Vol] 2554 pg/mL High <900 [facility] Comment on above: Heart Failure Unlike ly: < 300 pg/mLHeart Failure Likely< 50 Years: > 450 pg/mL50-75 Years: > 900 pg/mL>75 Years: > 1800 pg/mL Neutrophil percentageOrdered By: Malika Hernandez on 05-13-2025 Neutrophils/100 WBC (Bld) 85.1 % High 47-70 [facility] No Panel InformationOrdered By: Linwood Ivy on 05-13-2025 Bld Gas Crit Called To/Read Back By Yes [facility] Blood Gas Notified Time 13:37:54 [facility] Blood Gas Notified Whom trang [facility] Blood Gas Sample Site R Radial [facility] Blood Gas Specimen Type ART [facility] Blood Gas Vent Mode Not entered [facility] Oxygen Delivery Device Cannula [facility] Nucleated red blood cell per centageOrdered By: Malika Hernandez on 05-13-2025 Nucleated RBC/100 WBC (Bld) [Ratio] 0 % 0-5 [facility] Platelet countOrdered By: Marcy Hernandez on 05-13-2025 Platelets (Bld) [#/Vol] 115 10*3/uL Low 150-450 [facility] Potassium measurement (mass/ volume)Ordered By: Malika Hernandez on 05-13-2025 Potassium (Unsp spec) [Mass/Vol] 4.7 mmol/L 3.3-5.1 [facility] Comment on above: Hemolysis present, R esults could be affected. RBC Auto (Bld) [#/Vol]Ordere d By: Malika Hernandez on 05-13-2025 RBC (Bld) [#/Vol] 3.37 10*6/uL Low 4.2-5.[address] [facility] Serum creatinine measurement (mass/volume)Ordered By: Malika Hernandez on 05-13-2025 Creatinine [Mass/Vol] 0.58 mg/dL Low 0.70-1.20 [facility] Serum globulin measurementOr dered By: Malika Hernandez on 05-13-2025 Globulin (S) [Mass/Vol] 3.9 g/dL 2.2-4.2 [facility] Serum glucose measurement (m ass/volume)Ordered By: Malika Hernandez on 05-13-2025 Glucose [Mass/Vol] 97 mg/dL 70-99 [facility] Serum or plasma alanine lindsey otransferase (ALT) measurementOrdered By: Malika Hernandez on 05-13-2025 ALT [Catalytic activity/Vol] 18 U/L <35 [facility] Comment on above: Hemolysis present, R esults could be affected. Serum or plasma albumin tad urement (mass/volume)Ordered By: Malika Hernandez on 05-13-2025 Albumin [Mass/Vol] 3.1 g/dL Low 3.4-4.8 [facility] Serum or plasma albumin/glob ulin mass ratioOrdered By: Malika Hernandez on 05-13-2025 Albumin/Globulin [Mass ratio] 0.8 {ratio} Low 0.9-2.4 [facility] Serum or plasma alkaline zita sphatase measurementOrdered By: Malika Hernandez on 05-13-2025 ALP [Catalytic activity/Vol] 121 U/L High 35-104 [facility] Serum or plasma calcium tad urement (mass/volume)Ordered By: Malika Hernandez on 05-13-2025 Calcium [Mass/Vol] 8.8 mg/dL 7.6-11.0 [facility] Serum or plasma urea nitroge n measurement (mass/volume)Ordered By: Malika Hernandez on 05-13-2025 Urea nitrogen [Mass/Vol] 25 mg/dL High 4-19 [facility] Sodium levelOrdered By: Malika Hernandez on 05-13-2025 Sodium [Moles/Vol] 143 mmol/L 133-145 [facility] Total proteinOrdered By: Violeta Hernandez on 05-13-2025 Protein [Mass/Vol] 7.0 g/dL 5.9-8.4 [facility] Troponin T.cardiac [Mass/vol ume] in Serum or Plasma by High sensitivity methodOrdered By: Malika Hernandez on 05-13-2025 Troponin T.cardiac High sensitivity method [Mass/Vol] < 6 ng/L <14 [facility] Troponin T.cardiac High sensitivity method [Mass/Vol] < 6 ng/L <14 [facility] Comment on above: Hemolysis present, R esults could be affected. White blood cell (WBC) count Ordered By: Malika Hernandez on 05-13-2025 WBC (Bld) [#/Vol] 10.1 10*3/uL 4.4-11.0 [facility] ECG 12 lead - CLINIC PERFORM EDon 05-12-2025 Atrial fibrillation with a controlled VR [facility] Health Office Visiton 05-12-2025 Follow-up visit [id number] Hillary Lucero 1955 F Date Provider Department Center 05/12/2025 [id number] MIRELES [facility] TANVI None Family History Problem Relation Age of Onset COPD Mother Cancer Father Family Status - Relation Status Age at Mother Father Level of Service:00168 SD OFFICE/OUTPATIENT NEW HIGH MDM 60 MINUTES Reason for Visit and Comments: Atrial Flutter [101] COPD [313] - Oxygen dependent Hypertension [715192] Hyperlipidemia [182] Normal [facility] Progress Noteon 05-12-2025 Progress Note [facility] [place] [facility]Electrophysiology New Patient Clinic Note Chief Complaint: [...] January 2025 when she presented to the [place] ED with worsening lower extremity edema and [...] venous insuffi (more content not included)... [facility] ) RAJENDRA LUCERO ([id number]) 1955 F Date Time Provider Department 05/11/25 11:40 AM SOFI GARCIA FAMPWS During your visit today, we recorded the following information about you: Temperature Pulse Respiration Blood pressure 99.7 degrees 76/minute 20/minute 110/70 Weight 117.9 kg Sofi Garcia PA-C 05/11/2025 2:34 PM Signed Chief Complaint Patient presents with: [facility] F/U [place] [employer] Rajendra Lucero is a 69 year old female who presents here today for Hospital Discharge Follow up.. Patient was admitted on 04/23/2025 Discharge of 04/27/2024 Dx: atrial flutter with RVR; COPD exacerbation CHF: - Recent hospitalization from 04/23 to 04/27. - Follow-up with cardiology last Saturday; Lasix increased to 60 mg BID for 5 days. - Scheduled to see telecommunications analyst tomorrow. - Started on on Saturday; no [...] disease) (HCC) 02/03/2010 Coronary artery disease No [place], CHF. No heart cath. Diverticulosis of colon [...] hours as needed for wheezing/shortness of breath. qcewapxsugi-ftfusnyrq-wsybequ r (TRELEGY ELLIPTA) 200-62.5-25 mcg inhalation powder [...] 99. A (more content not included)... Normal [facility] metabolic 2000 panelon 05-11-2025 Albumin [Mass/Vol] 3.2 g/dL Low 3.9 - 4.9 g/dL [facility] ALP [Catalytic activity/Vol] 147 U/L High 34 - 123 U/L [facility] ALT [Catalytic activity/Vol] 21 U/L 7 - 38 U/L [facility] Anion gap [Moles/Vol] 11 mmol/L 8 - 15 mmol/L [facility] AST [Catalytic activity/Vol] 28 U/L 13 - 35 U/L [facility] Comment on above: Results may be false ly increased due to interference from hemolysis. Suggest reorder as clinically indicated. Bilirubin [Mass/Vol] 0.5 mg/dL 0.2 - 1 .3 mg/dL [facility] Calcium [Mass/Vol] 9.5 mg/dL 8.5 - 10. 2 mg/dL [facility] Chloride [Moles/Vol] 91 mmol/L Low 98 - 10 7 mmol/L [facility] CO2 [Moles/Vol] 39 mmol/L High 22 - 30 mmol/L [facility] Creatinine [Mass/Vol] 0.59 mg/dL 0.58 - 0.96 mg/dL [facility] GFR/1.73 sq M.predicted among non-blacks MDRD (S/P/Bld) [Vol rate/Area] 99 mL/min/{1.73_m2} - PINF [facility] Comment on above: Estimated Glomerular Filtration [...] 113 mg/dL High 74 - 99 mg/dL [facility] Comment on above: The [place] Di[employer] Association (ADA) provides guidance for [...] Standards of Medical Care in Diabetes 2016, [place] [employer]. Diabetes Care. 2016.39(Suppl 1). Interpretation and review of laboratory results Abnormal [facility] Potassium [Moles/Vol] 4.6 mmol/L 3.7 - 5.1 mmol/L [facility] Protein [Mass/Vol] 7.5 g/dL 6.3 - 8.0 g/dL [facility] Sodium [Moles/Vol] 141 mmol/L 136 - 144 mmol/L [facility] Urea nitrogen [Mass/Vol] 20 mg/dL 7 - 21 mg/dL [facility] Albumin [Mass/Vol] 3.2 g/dL Low 3.9-4.9 [facility] Comment on above: Order Comment: Speci men Type: BLOOD SPECIMENOrdering Facility: [facility] Address: [address] [place] [address] Performed By: #### 2 4323-8 ####[facility] LABCLIA [id number] [place] [address] [place] ALP [Catalytic activity/Vol] 147 U/L High 34-123 [facility] Comment on above: Order Comment: Speci men Type: BLOOD SPECIMENOrdering Facility: [facility] Address: [address] [place] [address] Performed By: #### 2 4323-8 ####[facility] LABCLIA [id number] [place] [address] [place] ALT [Catalytic activity/Vol] 21 U/L Normal 7-38 [facility] Comment on above: Order Comment: Speci men Type: BLOOD SPECIMENOrdering Facility: [facility] Address: [address] [place] [address] Performed By: #### 2 4323-8 ####[facility] LABCLIA [id number] [place] [address] [place] Anion gap [Moles/Vol] 11 mmol/L Normal 8-15 [facility] Comment on above: Order Comment: Speci men Type: BLOOD SPECIMENOrdering Facility: [facility] Address: [address] [place], [place] [address] Performed By: #### 2 4323-8 ####[facility] LABCLIA [id number] [place] [address] [place] AST [Catalytic activity/Vol] 28 U/L Normal 13-35 [facility] Comment on above: Order Comment: Speci men Type: BLOOD SPECIMENOrdering Facility: [facility] Address: [address] [place] [address] Result Comment: Resu lts may be falsely increased due to interference from hemolysis. Suggest reorder as clinically indicated. Performed By: #### 2 4323-8 ####[facility] LABIA [id number] [place] [address] [place] Bilirubin [Mass/Vol] 0.5 mg/dL Normal 0.2-1.3 [facility] Comment on above: Order Comment: Speci men Type: BLOOD SPECIMENOrdering Facility: [facility] Address: [address] [place] [address] Performed By: #### 2 4323-8 ####[facility] LABIA [id number] [place] [address] [place] Calcium [Mass/Vol] 9.5 mg/dL Normal 8.5-10.2 [facility] Comment on above: Order Comment: Speci men Type: BLOOD SPECIMENOrdering Facility: [facility] Address: [address] [place] [address] Performed By: #### 2 4323-8 ####[facility] LABIA [id number] [place] [id number] [place] Chloride [Moles/Vol] 91 mmol/L Low 98-107 [facility] Comment on above: Order Comment: Speci men Type: BLOOD SPECIMENOrdering Facility: [facility] Address: [address] [place], [place] [address] Performed By: #### 2 4323-8 ####[facility] LABCLIA [id number] [facility] [address] [address] [place] CO2 [Moles/Vol] 39 mmol/L High 22-30 [facility] Comment on above: Order Comment: Speci men Type: BLOOD SPECIMENOrdering Facility: [facility] Address: [address] [place] [address] Performed By: #### 2 4323-8 ####[facility] LABCLIA [id number] [address] [address] [place] Creatinine [Mass/Vol] 0.59 mg/dL Normal 0.58-0.96 [facility] Comment on above: Order Comment: Speci men Type: BLOOD SPECIMENOrdering Facility: [facility] Address: [address] [place] [address] Performed By: #### 2 4323-8 ####[facility] LABIA [id number] [place] [id number] [place] eGFRcr SerPlBld CKD-EPI 2020 99 mL/min/1.73m??? Normal >=60 [facility] Comment on above: Order Comment: Speci men Type: BLOOD SPECIMENOrdering Facility: [facility] Address: [address] [place] [address] Result Comment: Marcia mated Glomerular Filtration Rate [...] actual GFR. Performed By: #### 2 4323-8 ####[facility] LABCLIA [id number] [facility] [address] [address] [place] Glucose [Mass/Vol] 113 mg/dL High 74-99 [facility] Comment on above: Order Comment: Speci men Type: BLOOD SPECIMENOrdering Facility: [facility] Address: [address] [place] [id number] Result Comment: The [place] Diabetes Association (ADA) provides guidance for cutoff [...] Standards of Medical Care in Diabetes 2016, [place] [employer]. Diabetes Care. 2016.39(Suppl 1). Performed By: #### 2 4323-8 ####[facility] LABCLIA [id number] [place] [address] [place] Potassium [Moles/Vol] 4.6 mmol/L Normal 3.7-5.1 [facility] Comment on above: Order Comment: Speci men Type: BLOOD SPECIMENOrdering Facility: [facility] Address: [address] [place] [address] Performed By: #### 2 4323-8 ####[facility] LABCLIA [id number] [place] [id number] [place] Protein [Mass/Vol] 7.5 g/dL Normal 6.3-8.0 [facility] Comment on above: Order Comment: Speci men Type: BLOOD SPECIMENOrdering Facility: [facility] Address: [address] [place] [address] Performed By: #### 2 4323-8 ####[facility] LABCLIA [id number] [place] [id number] [place] Sodium [Moles/Vol] 141 mmol/L Normal 136-144 [facility] Comment on above: Order Comment: Speci men Type: BLOOD SPECIMENOrdering Facility: [facility] Address: [address] [place] [address] [place] [address] Performed By: #### 2 4323-8 ####[facility] LABCLIA [id number] [place] [id number] [place] Urea nitrogen [Mass/Vol] 20 mg/dL Normal 7-21 [facility] Comment on above: Order Comment: Speci men Type: BLOOD SPECIMENOrdering Facility: [facility] Address: [address] [place] [id number] Performed By: #### 2 4323-8 ####[facility] LABCLIA [id number] [address] [place] Absolute lymphocyte countOrd ered By: Kim Price on 05-07-2025 Lymphocytes Auto (Unsp spec) [#/Vol] 0.78 10*3/uL Low 0.83-4.51 [facility] Absolute neutrophil countOrd ered By: Kim Price on 05-07-2025 Neutrophils (Bld) [#/Vol] 8.2 10*3/uL High 2.0-7.7 [facility] Anion gap in Serum or Plasma Ordered By: Kim Price on 05-07-2025 Anion gap [Moles/Vol] 10 mmol/L 5-15 [facility] Automated lymphocyte count a s percentage of total leukocytesOrdered By: Kim Price on 05-07-2025 Lymphocytes/100 WBC Auto (Unsp spec) 7.8 % Low 19-41 [facility] BUN/creatinine ratioOrdered By: Kim Price on 05-07-2025 Urea nitrogen/Creatinine [Mass ratio] 23.3 mg/mg High 10-20 [facility] Basic Metabolic Profile (BMP )on 05-07-2025 BUN/CRE 23.3 RATIO High 08-16 [facility] Comment on above: Performed By: #### L 100.0100, L500.2500, L503.7505 ####[facility] [address] [place], [place], [id number] Calcium [Mass/Vol] 9.8 mg/dL Normal 7.6-11.0 [facility] Comment on above: Performed By: #### L 100.0100, L500.2500, L503.7505 ####[facility] [address] [place], [address] Chloride [Moles/Vol] 91 mmol/L Low 98-108 [facility] Comment on above: Performed By: #### L 100.0100, L500.2500, L503.7505 ####[facility] [address] [place], [address] CO2 [Moles/Vol] 41.3 mmol/L High 21.0-32.0 [facility] Comment on above: Performed By: #### L 100.0100, L500.2500, L503.7505 ####[facility] [address] [place], [address] Creatinine [Mass/Vol] 0.69 mg/dL Low 0.70-1.20 [facility] Comment on above: Performed By: #### L 100.0100, L500.2500, L503.7505 ####[facility] [address] [place], [address] GAP 10 Normal 5-15 [facility] Comment on above: Performed By: #### L 100.0100, L500.2500, L503.7505 ####[facility] [address] [place], [address] GFR/1.73 sq M.predicted among non-blacks MDRD (S/P/Bld) [Vol rate/Area] 95 mL/min/{1.73_m2} Normal >60 [facility] Comment on above: Result Comment: mL/m in/1.73m2 CKD-EPI Creatinine Equation (2020) Performed By: #### L 100.0100, L500.2500, L503.7505 ####[facility] [address] [place], [address] Glucose [Mass/Vol] 118 mg/dL High 70-99 [facility] Comment on above: Performed By: #### L 100.0100, L500.2500, L503.7505 ####[facility] [address] [place], [address] Potassium [Moles/Vol] 4.3 mmol/L Normal 3.3-5.1 [facility] Comment on above: Performed By: #### L 100.0100, L500.2500, L503.7505 ####[facility] [address] [place], [address] Sodium [Moles/Vol] 142 mmol/L Normal 133-145 [facility] Comment on above: Performed By: #### L 100.0100, L500.2500, L503.7505 ####[facility] [address] [place], [address] Urea nitrogen [Mass/Vol] 16 mg/dL Normal 4-19 [facility] Comment on above: Performed By: #### L 100.0100, L500.2500, L503.7505 ####[facility] [address] [place], [address] Basophil percentageOrdered B y: Kim Price on 05-07-2025 Basophils/100 WBC (Bld) 0.6 % 0-1 [facility] CBC W/Diff, Automatedon 04-27 Absolute Lymph 0.78 X10 3/uL Low 0.83-4.51 [facility] Comment on above: Performed By: #### L 100.0100, L500.2500, L503.7505 ####[facility] [address] [place], [address] Absolute Neut 8.2 X10 3/uL High 2.0-7.7 [facility] Comment on above: Performed By: #### L 100.0100, L500.2500, L503.7505 ####[facility] [address] [place], [address] Basophils/100 WBC (Bld) 0.6 % Normal 0-1 [facility] Comment on above: Performed By: #### L 100.0100, L500.2500, L503.7505 ####[facility] [address] [place], [address] Eosinophils/100 WBC (Bld) 0.7 % Normal 0-5 [facility] Comment on above: Performed By: #### L 100.0100, L500.2500, L503.7505 ####[facility] [address] [place], [address] Erythrocyte distribution width (RBC) [Ratio] 14.6 % Normal 11.6-14.6 [facility] Comment on above: Performed By: #### L 100.0100, L500.2500, L503.7505 ####[facility] [address] [place], [address] Hematocrit (Bld) [Volume fraction] 36.9 % Low 37-47 [facility] Comment on above: Performed By: #### L 100.0100, L500.2500, L503.7505 ####[facility] [address] [place], [address] Hemoglobin (Bld) [Mass/Vol] 11.0 g/dL Low 12.0-15.0 [facility] Comment on above: Performed By: #### L 100.0100, L500.2500, L503.7505 ####[facility] [address] [place], [address] IG% 0.600 Normal 0.0-0.9 [facility] Comment on above: Result Comment: IG% - Immature Granulocytes (promyelocytes, myelocytes andmetamyelocytes) > 1% indicates that a LEFT SHIFT is Present. Performed By: #### L 100.0100, L500.2500, L503.7505 ####[facility] [address], [address] Lymphocytes/100 WBC (Bld) 7.8 % Low 19-41 [facility] Comment on above: Performed By: #### L 100.0100, L500.2500, L503.7505 ####[facility] [address] [place], [address] MCH (RBC) [Entitic mass] 30.3 pg Normal 27.0-32.0 [facility] Comment on above: Performed By: #### L 100.0100, L500.2500, L503.7505 ####[facility] [address] [place], [address] MCHC (RBC) [Mass/Vol] 29.8 g/dL Low 32-36 [facility] Comment on above: Performed By: #### L 100.0100, L500.2500, L503.7505 ####[facility] [address] [place], [address] MCV (RBC) [Entitic vol] 101.7 fL High 81-99 [facility] Comment on above: Performed By: #### L 100.0100, L500.2500, L503.7505 ####[facility] [address], [address] Monocytes/100 WBC (Bld) 8.3 % Normal 0-10 [facility] Comment on above: Performed By: #### L 100.0100, L500.2500, L503.7505 ####[facility] [address] [place], [address] Neutrophils/100 WBC (Bld) 82.0 % High 47-70 [facility] Comment on above: Performed By: #### L 100.0100, L500.2500, L503.7505 ####[facility] [address], [address] Nucleated RBC (Bld) [#/Vol] 0 10*3/uL Normal 0-5 [facility] Comment on above: Performed By: #### L 100.0100, L500.2500, L503.7505 ####[facility] [address] [place], [address] Platelet mean volume (Bld) [Entitic vol] 10.6 fL Normal 6.2-12.0 [facility] Comment on above: Performed By: #### L 100.0100, L500.2500, L503.7505 ####[facility] [address] [place], [address] Platelets (Bld) [#/Vol] 291 10*3/uL Normal 150-450 [facility] Comment on above: Performed By: #### L 100.0100, L500.2500, L503.7505 ####[facility] [address] [place], [address] RBC (Bld) [#/Vol] 3.63 10*6/uL Low 4.2-5.[address] [facility] Comment on above: Performed By: #### L 100.0100, L500.2500, L503.7505 ####[facility] [address] [place], [address] RDW SD 54.4 fl High 35.1-43.9 [facility] Comment on above: Performed By: #### L 100.0100, L500.2500, L503.7505 ####[facility] [address] [place], [address] WBC (Bld) [#/Vol] 10.0 10*3/uL Normal 4.4-11.[address] [facility] Comment on above: Performed By: #### L 100.0100, L500.2500, L503.7505 ####[facility] [address] [place], [address] Carbon dioxide, total [Moles /volume] in Central venous bloodOrdered By: Kim Price on 05-07-2025 CO2 [Moles/Vol] 41.3 mmol/L High 21.0-32.0 [facility] Cardiology Visit Reporton Cardiology Visit Report Normal [facility] Chest PA and Lateralon 05-07 Chest PA and Lateral Normal [facility] Chloride assayOrdered By: Cedrick Price on 05-07-2025 Chloride [Moles/Vol] 91 mmol/L Low 98-108 [facility] Eosinophil percentageOrdered By: Kim Price on 05-07-2025 Eosinophils/100 WBC (Bld) 0.7 % 0-5 [facility] Erythrocyte distribution wid th ratioOrdered By: Kim Price on 05-07-2025 Erythrocyte distribution width (RBC) [Ratio] 14.6 % 11.6-14.6 [facility] Erythrocyte distribution wid th standard deviationOrdered By: Kim Price on 05-07-2025 Erythrocyte distribution width (RBC) [Ratio] 54.4 fl High 35.1-43.9 [facility] Glomerular filtration rate ( GFR) estimation/1.73 sq m using serum, plasma, or whole bOrdered By: Kim Price on 05-07-2025 GFR/1.73 sq M.predicted among non-blacks MDRD (S/P/Bld) [Vol rate/Area] 95 mL/min/{1.73_m2} >60 [facility] Comment on above: mL/min/1.73m2 CKD-EP I Creatinine Equation (2020) Hematocrit Auto (Bld) [Volum e fraction]Ordered By: Kim Price on 05-07-2025 Hematocrit (Bld) [Volume fraction] 36.9 % Low 37-47 [facility] Hemoglobin measurementOrdere d By: Kim Price on 05-07-2025 Hemoglobin (Bld) [Mass/Vol] 11.0 g/dL Low 12.0-15.0 [facility] Immature granulocytes/100 WB C Auto (Bld)Ordered By: Kim Price on 05-07-2025 Immature granulocytes/100 WBC (Bld) 0.600 % 0.0-0.9 [facility] Comment on above: IG% - Immature Granu locytes (promyelocytes, myelocytes and metamyelocytes) > 1% indicates that a LEFT SHIFT is Present. L503.7505on 05-07-2025 Natriuretic peptide B (Bld) [Mass/Vol] 2566 pg/mL High <=900 [facility] Comment on above: Result Comment: Hear t Failure Unlikely: < 300 pg/mLHeart Failure Likely< 50 Years: > 450 pg/mL50-75 Years: > 900 pg/mL>75 Years: > 1800 pg/mL Performed By: #### L 100.0100, L500.2500, L503.7505 ####[facility] [address] [place], [address] MCV (mean corpuscular volume ) determinationOrdered By: Kim Price on 05-07-2025 MCV (RBC) [Entitic vol] 101.7 fL High 81-99 [facility] Mean corpuscular hemoglobin (MCH) determinationOrdered By: Kim Price on 05-07-2025 MCH (RBC) [Entitic mass] 30.3 pg 27.0-32.0 [facility] Mean corpuscular hemoglobin concentration (MCHC) determinationOrdered By: Kim Price on 05-07-2025 MCHC (RBC) [Mass/Vol] 29.8 g/dL Low 32-36 [facility] Mean platelet volume determi nationOrdered By: Kim Price on 05-07-2025 Platelet mean volume (Bld) [Entitic vol] 10.6 fL 6.2-12.0 [facility] Monocyte percentageOrdered B y: Kim Price on 05-07-2025 Monocytes/100 WBC (Bld) 8.3 % 0-10 [facility] Natriuretic peptide.B prohor gonzalo N-Terminal [Mass/volume] in Serum or PlasmaOrdered By: Kim Price on 05-07-2025 Natriuretic peptide.B prohormone N-Terminal [Mass/Vol] 2566 pg/mL High <900 [facility] Comment on above: Heart Failure Unlike ly: < 300 pg/mLHeart Failure Likely< 50 Years: > 450 pg/mL50-75 Years: > 900 pg/mL>75 Years: > 1800 pg/mL Neutrophil percentageOrdered By: Kim Price on 05-07-2025 Neutrophils/100 WBC (Bld) 82.0 % High 47-70 [facility] Nucleated red blood cell per centageOrdered By: Kim Price on 05-07-2025 Nucleated RBC/100 WBC (Bld) [Ratio] 0 % 0-5 [facility] Platelet countOrdered By: Cedrick Price on 05-07-2025 Platelets (Bld) [#/Vol] 291 10*3/uL 150-450 [facility] Potassium measurement (mass/ volume)Ordered By: Kim Price on 05-07-2025 Potassium (Unsp spec) [Mass/Vol] 4.3 mmol/L 3.3-5.1 [facility] RBC Auto (Bld) [#/Vol]Ordere d By: Kim Price on 05-07-2025 RBC (Bld) [#/Vol] 3.63 10*6/uL Low 4.2-5.[address] [facility] Serum creatinine measurement (mass/volume)Ordered By: Kim Price on 05-07-2025 Creatinine [Mass/Vol] 0.69 mg/dL Low 0.70-1.20 [facility] Serum glucose measurement (m ass/volume)Ordered By: Kim Price on 05-07-2025 Glucose [Mass/Vol] 118 mg/dL High 70-99 [facility] Serum or plasma calcium tad urement (mass/volume)Ordered By: Kim Price on 05-07-2025 Calcium [Mass/Vol] 9.8 mg/dL 7.6-11.0 [facility] Serum or plasma urea nitroge n measurement (mass/volume)Ordered By: Kim Price on 05-07-2025 Urea nitrogen [Mass/Vol] 16 mg/dL 4-19 [facility] Sodium levelOrdered By: Odalys Price on 05-07-2025 Sodium [Moles/Vol] 142 mmol/L 133-145 [facility] White blood cell (WBC) count Ordered By: Kim Price on 05-07-2025 WBC (Bld) [#/Vol] 10.0 10*3/uL 4.4-11.[address] [facility] Discharge Instructionon 07-0 1-2025 Discharge Instruction Normal [facility] Absolute lymphocyte countOrd ered By: George Polanco on 04-26-2025 Lymphocytes Auto (Unsp spec) [#/Vol] 0.48 10*3/uL Low 0.83-4.51 [facility] Absolute neutrophil countOrd ered By: George Polanco on 04-26-2025 Neutrophils (Bld) [#/Vol] 8.0 10*3/uL High 2.0-7.7 [facility] Anion gap in Serum or Plasma Ordered By: George Polanco on 04-26-2025 Anion gap [Moles/Vol] 8 mmol/L 5-15 [facility] Automated lymphocyte count a s percentage of total leukocytesOrdered By: George Polanco on 04-26-2025 Lymphocytes/100 WBC Auto (Unsp spec) 5.2 % Low 19-41 [facility] BUN/creatinine ratioOrdered By: George Polanco on 04-26-2025 Urea nitrogen/Creatinine [Mass ratio] 32.1 mg/mg High 10-20 [facility] Basic Metabolic Profile (BMP )on 04-26-2025 BUN/CRE 32.1 RATIO High 10-20 [facility] Comment on above: Performed By: #### L 500.2500, L100.0100 ####[facility] [address] [place], [address] Calcium [Mass/Vol] 9.4 mg/dL Normal 7.6-11.0 [facility] Comment on above: Performed By: #### L 500.2500, L100.0100 ####[facility] [address] [place], [address] Chloride [Moles/Vol] 96 mmol/L Low 98-108 [facility] Comment on above: Performed By: #### L 500.2500, L100.0100 ####[facility] [address] [place], [address] CO2 [Moles/Vol] 37.1 mmol/L High 21.0-32.0 [facility] Comment on above: Performed By: #### L 500.2500, L100.0100 ####[facility] [address] [place], [address] Creatinine [Mass/Vol] 0.72 mg/dL Normal 0.70-1.20 [facility] Comment on above: Performed By: #### L 500.2500, L100.0100 ####[facility] [address] [place], [address] ECRCL 85.43 ml/min Normal 50-250 [facility] Comment on above: Performed By: #### L 500.2500, L100.0100 ####[facility] [address] [place], [address] GAP 8 Normal 5-15 [facility] Comment on above: Performed By: #### L 500.2500, L100.0100 ####[facility] [address] [place], [address] GFR/1.73 sq M.predicted among non-blacks MDRD (S/P/Bld) [Vol rate/Area] 92 mL/min/{1.73_m2} Normal >60 [facility] Comment on above: Result Comment: mL/m in/1.73m2 CKD-EPI Creatinine Equation (2020) Performed By: #### L 500.2500, L100.0100 ####[facility] [address] [place], [address] Glucose [Mass/Vol] 125 mg/dL High 70-99 [facility] Comment on above: Performed By: #### L 500.2500, L100.0100 ####[facility] [address] [place], [address] Potassium [Moles/Vol] 4.6 mmol/L Normal 3.3-5.1 [facility] Comment on above: Performed By: #### L 500.2500, L100.0100 ####[facility] [address] [place], [address] Sodium [Moles/Vol] 142 mmol/L Normal 133-145 [facility] Comment on above: Performed By: #### L 500.2500, L100.0100 ####[facility] [address] [place], [address] Urea nitrogen [Mass/Vol] 23 mg/dL High 4-19 [facility] Comment on above: Performed By: #### L 500.2500, L100.0100 ####[facility] [address] [place], [address] Basophil percentageOrdered B y: George Polanco on 04-26-2024 Basophils/100 WBC (Bld) 0.3 % 0-1 [facility] CBC W/Diff, Automatedon 03-30-2024 Absolute Lymph 0.48 X10 3/uL Low 0.83-4.51 [facility] Comment on above: Performed By: #### L 500.2500, L100.0100 ####[facility] [address] [place], [address] Absolute Neut 8.0 X10 3/uL High 2.0-7.7 [facility] Comment on above: Performed By: #### L 500.2500, L100.0100 ####[facility] [address] [place], [address] Basophils/100 WBC (Bld) 0.3 % Normal 0-1 [facility] Comment on above: Performed By: #### L 500.2500, L100.0100 ####[facility] [address] [place], [address] Eosinophils/100 WBC (Bld) 0.9 % Normal 0-5 [facility] Comment on above: Performed By: #### L 500.2500, L100.0100 ####[facility] [address] [place], [address] Erythrocyte distribution width (RBC) [Ratio] 14.3 % Normal 11.6-14.6 [facility] Comment on above: Performed By: #### L 500.2500, L100.0100 ####[facility] [address] [place], [address] Hematocrit (Bld) [Volume fraction] 38.8 % Normal 37-47 [facility] Comment on above: Performed By: #### L 500.2500, L100.0100 ####[facility] [address] [place], [address] Hemoglobin (Bld) [Mass/Vol] 11.6 g/dL Low 12.0-15.0 [facility] Comment on above: Performed By: #### L 500.2500, L100.0100 ####[facility] [address] [place], [address] IG% 0.700 Normal 0.0-0.9 [facility] Comment on above: Result Comment: IG% - Immature Granulocytes (promyelocytes, myelocytes andmetamyelocytes) > 1% indicates that a LEFT SHIFT is Present. Performed By: #### L 500.2500, L100.0100 ####[facility] [address] [place], [address] Lymphocytes/100 WBC (Bld) 5.2 % Low 19-41 [facility] Comment on above: Performed By: #### L 500.2500, L100.0100 ####[facility] [address] [place], [address] MCH (RBC) [Entitic mass] 30.8 pg Normal 27.0-32.0 [facility] Comment on above: Performed By: #### L 500.2500, L100.0100 ####[facility] [address] [place], [address] MCHC (RBC) [Mass/Vol] 29.9 g/dL Low 32-36 [facility] Comment on above: Performed By: #### L 500.2500, L100.0100 ####[facility] [address] [place], [address] MCV (RBC) [Entitic vol] 102.9 fL High 81-99 [facility] Comment on above: Performed By: #### L 500.2500, L100.0100 ####[facility] [address] [place], [address] Monocytes/100 WBC (Bld) 5.9 % Normal 0-10 [facility] Comment on above: Performed By: #### L 500.2500, L100.0100 ####[facility] [address] [place], [address] Neutrophils/100 WBC (Bld) 87.0 % High 47-70 [facility] Comment on above: Performed By: #### L 500.2500, L100.0100 ####[facility] [address] [place], [address] Nucleated RBC (Bld) [#/Vol] 0 10*3/uL Normal 0-5 [facility] Comment on above: Performed By: #### L 500.2500, L100.0100 ####[facility] [address] [place], [address] Platelet mean volume (Bld) [Entitic vol] 11.1 fL Normal 6.2-12.0 [facility] Comment on above: Performed By: #### L 500.2500, L100.0100 ####[facility] [address] [place], [address] Platelets (Bld) [#/Vol] 266 10*3/uL Normal 150-450 [facility] Comment on above: Performed By: #### L 500.2500, L100.0100 ####[facility] [address] [place], [address] RBC (Bld) [#/Vol] 3.77 10*6/uL Low 4.2-5.[address] [facility] Comment on above: Performed By: #### L 500.2500, L100.0100 ####[facility] [address] [place], [address] RDW SD 54.2 fl High 35.1-43.9 [facility] Comment on above: Performed By: #### L 500.2500, L100.0100 ####[facility] [address] [place], [address] WBC (Bld) [#/Vol] 9.2 10*3/uL Normal 4.4-11.0 [facility] Comment on above: Performed By: #### L 500.2500, L100.0100 ####[facility] [address] [place], [address] Carbon dioxide, total [Moles /volume] in Central venous bloodOrdered By: George Polanco on 04-26-2025 CO2 [Moles/Vol] 37.1 mmol/L High 21.0-32.0 [facility] Chloride assayOrdered By: Ashley Polanco on 04-26-2025 Chloride [Moles/Vol] 96 mmol/L Low 98-108 [facility] Discharge Instructionon 06-3 Discharge Instruction Normal [facility] Eosinophil percentageOrdered By: George Polanco on 04-26-2025 Eosinophils/100 WBC (Bld) 0.9 % 0-5 [facility] Erythrocyte distribution wid th ratioOrdered By: George Polanco on 04-26-2025 Erythrocyte distribution width (RBC) [Ratio] 14.3 % 11.6-14.6 [facility] Erythrocyte distribution wid th standard deviationOrdered By: George Polanco on 04-26-2025 Erythrocyte distribution width (RBC) [Ratio] 54.2 fl High 35.1-43.9 [facility] Glomerular filtration rate ( GFR) estimation/1.73 sq m using serum, plasma, or whole bOrdered By: George Polanco on 04-26-2025 GFR/1.73 sq M.predicted among non-blacks MDRD (S/P/Bld) [Vol rate/Area] 92 mL/min/{1.73_m2} >60 [facility] Comment on above: mL/min/1.73m2 CKD-EP I Creatinine Equation (2020) Hematocrit Auto (Bld) [Volum e fraction]Ordered By: George Polanco on 04-26-2025 Hematocrit (Bld) [Volume fraction] 38.8 % 37-47 [facility] Hemoglobin measurementOrdere d By: George Polanco on 04-26-2025 Hemoglobin (Bld) [Mass/Vol] 11.6 g/dL Low 12.0-15.0 [facility] Immature granulocytes/100 WB C Auto (Bld)Ordered By: George Polanco on 04-26-2025 Immature granulocytes/100 WBC (Bld) 0.700 % 0.0-0.9 [facility] Comment on above: IG% - Immature Granu locytes (promyelocytes, myelocytes and metamyelocytes) > 1% indicates that a LEFT SHIFT is Present. MCV (mean corpuscular volume ) determinationOrdered By: George Polanco on 04-26-2025 MCV (RBC) [Entitic vol] 102.9 fL High 81-99 [facility] Mean corpuscular hemoglobin (MCH) determinationOrdered By: George Polanco on 04-26-2025 MCH (RBC) [Entitic mass] 30.8 pg 27.0-32.0 [facility] Mean corpuscular hemoglobin concentration (MCHC) determinationOrdered By: George Polanco on 04-26-2025 MCHC (RBC) [Mass/Vol] 29.9 g/dL Low 32-36 [facility] Mean platelet volume determi nationOrdered By: George Polanco on 04-26-2025 Platelet mean volume (Bld) [Entitic vol] 11.1 fL 6.2-12.0 [facility] Monocyte percentageOrdered B y: George Polanco on 04-26-2025 Monocytes/100 WBC (Bld) 5.9 % 0-10 [facility] Neutrophil percentageOrdered By: George Polanco on 04-26-2025 Neutrophils/100 WBC (Bld) 87.0 % High 47-70 [facility] Nucleated red blood cell per centageOrdered By: George Polanco on 04-26-2025 Nucleated RBC/100 WBC (Bld) [Ratio] 0 % 0-5 [facility] Platelet countOrdered By: Ashley Polanco on 04-26-2025 Platelets (Bld) [#/Vol] 266 10*3/uL 150-450 [facility] Potassium measurement (mass/ volume)Ordered By: George Polanco on 04-26-2025 Potassium (Unsp spec) [Mass/Vol] 4.6 mmol/L 3.3-5.1 [facility] RBC Auto (Bld) [#/Vol]Ordere d By: George Polanco on 04-26-2025 RBC (Bld) [#/Vol] 3.77 10*6/uL Low 4.2-5.[address] [facility] Serum creatinine measurement (mass/volume)Ordered By: George Polanco on 04-26-2025 Creatinine [Mass/Vol] 0.72 mg/dL 0.70-1.20 [facility] Serum glucose measurement (m ass/volume)Ordered By: George Polanco on 04-26-2025 Glucose [Mass/Vol] 125 mg/dL High 70-99 [facility] Serum or plasma calcium tad urement (mass/volume)Ordered By: George Polanco on 04-26-2025 Calcium [Mass/Vol] 9.4 mg/dL 7.6-11.0 [facility] Serum or plasma urea nitroge n measurement (mass/volume)Ordered By: George Polanco on 04-26-2025 Urea nitrogen [Mass/Vol] 23 mg/dL High 4-19 [facility] Sodium levelOrdered By: Orlando Polanco on 04-26-2025 Sodium [Moles/Vol] 142 mmol/L 133-145 [facility] White blood cell (WBC) count Ordered By: Georeg Polanco on 04-26-2025 WBC (Bld) [#/Vol] 9.2 10*3/uL 4.4-11.0 [facility] Basic Metabolic Profile (BMP )on 04-25-2025 BUN/CRE 25.0 RATIO High 10-20 [facility] Comment on above: Performed By: #### L 100.0100, L500.2500 ####[facility] [address] [place], [address] Calcium [Mass/Vol] 9.3 mg/dL Normal 7.6-11.0 [facility] Comment on above: Performed By: #### L 100.0100, L500.2500 ####[facility] [address] [place], [address] Chloride [Moles/Vol] 95 mmol/L Low 98-108 [facility] Comment on above: Performed By: #### L 100.0100, L500.2500 ####[facility] [address] [place], [address] CO2 [Moles/Vol] 36.5 mmol/L High 21.0-32.0 [facility] Comment on above: Performed By: #### L 100.0100, L500.2500 ####[facility] [address] [place], [address] Creatinine [Mass/Vol] 0.67 mg/dL Low 0.70-1.20 [facility] Comment on above: Performed By: #### L 100.0100, L500.2500 ####[facility] [address] [place], [address] ECRCL 84.48 ml/min Normal 50-250 [facility] Comment on above: Performed By: #### L 100.0100, L500.2500 ####[facility] [address] [place], [address] GAP 9 Normal 5-15 [facility] Comment on above: Performed By: #### L 100.0100, L500.2500 ####[facility] [address] [place], [address] GFR/1.73 sq M.predicted among non-blacks MDRD (S/P/Bld) [Vol rate/Area] 96 mL/min/{1.73_m2} Normal >60 [facility] Comment on above: Result Comment: mL/m in/1.73m2 CKD-EPI Creatinine Equation (2020) Performed By: #### L 100.0100, L500.2500 ####[facility] [address] [place], [address] Glucose [Mass/Vol] 130 mg/dL High 70-99 [facility] Comment on above: Performed By: #### L 100.0100, L500.2500 ####[facility] [address] [place], [address] Potassium [Moles/Vol] 4.3 mmol/L Normal 3.3-5.1 [facility] Comment on above: Performed By: #### L 100.0100, L500.2500 ####[facility] [address] [place], [address] Sodium [Moles/Vol] 141 mmol/L Normal 133-145 [facility] Comment on above: Performed By: #### L 100.0100, L500.2500 ####[facility] [address] [place], [address] Urea nitrogen [Mass/Vol] 17 mg/dL Normal 4-19 [facility] Comment on above: Performed By: #### L 100.0100, L500.2500 ####[facility] [address] [place], [address] CBC W/Diff, Automatedon -2 Absolute Lymph 0.55 X10 3/uL Low 0.83-4.51 [facility] Comment on above: Performed By: #### L 100.0100, L500.2500 ####[facility] [address] [place], [address] Absolute Neut 7.5 X10 3/uL Normal 2.0-7.7 [facility] Comment on above: Performed By: #### L 100.0100, L500.2500 ####[facility] [address] [place], [address] Basophils/100 WBC (Bld) 0.5 % Normal 0-1 [facility] Comment on above: Performed By: #### L 100.0100, L500.2500 ####[facility] [address] [place], [address] Eosinophils/100 WBC (Bld) 1.0 % Normal 0-5 [facility] Comment on above: Performed By: #### L 100.0100, L500.2500 ####[facility] [address] [place], [address] Erythrocyte distribution width (RBC) [Ratio] 14.5 % Normal 11.6-14.6 [facility] Comment on above: Performed By: #### L 100.0100, L500.2500 ####[facility] [address] [place], [address] Hematocrit (Bld) [Volume fraction] 39.3 % Normal 37-47 [facility] Comment on above: Performed By: #### L 100.0100, L500.2500 ####[facility] [address] [place], [address] Hemoglobin (Bld) [Mass/Vol] 11.9 g/dL Low 12.0-15.0 [facility] Comment on above: Performed By: #### L 100.0100, L500.2500 ####[facility] [address] [place], [address] IG% 0.300 Normal 0.0-0.9 [facility] Comment on above: Result Comment: IG% - Immature Granulocytes (promyelocytes, myelocytes andmetamyelocytes) > 1% indicates that a LEFT SHIFT is Present. Performed By: #### L 100.0100, L500.2500 ####[facility] [address] [place], [address] Lymphocytes/100 WBC (Bld) 6.3 % Low 19-41 [facility] Comment on above: Performed By: #### L 100.0100, L500.2500 ####[facility] [address] [place], [address] MCH (RBC) [Entitic mass] 30.9 pg Normal 27.0-32.0 [facility] Comment on above: Performed By: #### L 100.0100, L500.2500 ####[facility] [address] [place], [address] MCHC (RBC) [Mass/Vol] 30.3 g/dL Low 32-36 [facility] Comment on above: Performed By: #### L 100.0100, L500.2500 ####[facility] [address] [place], [address] MCV (RBC) [Entitic vol] 102.1 fL High 81-99 [facility] Comment on above: Performed By: #### L 100.0100, L500.2500 ####[facility] [address] [place], [address] Monocytes/100 WBC (Bld) 6.2 % Normal 0-10 [facility] Comment on above: Performed By: #### L 100.0100, L500.2500 ####[facility] [address] [place], [address] Neutrophils/100 WBC (Bld) 85.7 % High 47-70 [facility] Comment on above: Performed By: #### L 100.0100, L500.2500 ####[facility] [address] [place], [address] Nucleated RBC (Bld) [#/Vol] 0 10*3/uL Normal 0-5 [facility] Comment on above: Performed By: #### L 100.0100, L500.2500 ####[facility] [address] [place], [address] Platelet mean volume (Bld) [Entitic vol] 10.1 fL Normal 6.2-12.0 [facility] Comment on above: Performed By: #### L 100.0100, L500.2500 ####[facility] [address] [place], [address] Platelets (Bld) [#/Vol] 286 10*3/uL Normal 150-450 [facility] Comment on above: Performed By: #### L 100.0100, L500.2500 ####[facility] [address] [place], [address] RBC (Bld) [#/Vol] 3.85 10*6/uL Low 4.2-5.[address] [facility] Comment on above: Performed By: #### L 100.0100, L500.2500 ####[facility] [address] [place], [address] RDW SD 54.5 fl High 35.1-43.9 [facility] Comment on above: Performed By: #### L 100.0100, L500.2500 ####[facility] [address] [place], [address] WBC (Bld) [#/Vol] 8.7 10*3/uL Normal 4.4-11.0 [facility] Comment on above: Performed By: #### L 100.0100, L500.2500 ####[facility] [address] [place], [address] Bilirubin, totalOrdered By: Virginia Henriquez on 04-24-2025 Bilirubin [Mass/Vol] 0.44 mg/dL 0.00-1.30 [facility] CBC W/Diff, Automatedon 06-2 Absolute Lymph 0.58 X10 3/uL Low 0.83-4.51 [facility] Comment on above: Performed By: #### L 500.4050, L500.4100, L100.0100, L501.9520 ####[facility] [address] [place], [address] Absolute Neut 7.1 X10 3/uL Normal 2.0-7.7 [facility] Comment on above: Performed By: #### L 500.4050, L500.4100, L100.0100, L501.9520 ####[facility] [address] [place], [address] Basophils/100 WBC (Bld) 0.5 % Normal 0-1 [facility] Comment on above: Performed By: #### L 500.4050, L500.4100, L100.0100, L501.9520 ####[facility] [address] [place], [address] Eosinophils/100 WBC (Bld) 1.3 % Normal 0-5 [facility] Comment on above: Performed By: #### L 500.4050, L500.4100, L100.0100, L501.9520 ####[facility] [address] [place], [address] Erythrocyte distribution width (RBC) [Ratio] 14.3 % Normal 11.6-14.6 [facility] Comment on above: Performed By: #### L 500.4050, L500.4100, L100.0100, L501.9520 ####[facility] [address] [place], [address] Hematocrit (Bld) [Volume fraction] 37.8 % Normal 37-47 [facility] Comment on above: Performed By: #### L 500.4050, L500.4100, L100.0100, L501.9520 ####[facility] [address] [place], [address] Hemoglobin (Bld) [Mass/Vol] 11.5 g/dL Low 12.0-15.0 [facility] Comment on above: Performed By: #### L 500.4050, L500.4100, L100.0100, L501.9520 ####[facility] [address] [place], [address] IG% 0.200 Normal 0.0-0.9 [facility] Comment on above: Result Comment: IG% - Immature Granulocytes (promyelocytes, myelocytes andmetamyelocytes) > 1% indicates that a LEFT SHIFT is Present. Performed By: #### L 500.4050, L500.4100, L100.0100, L501.9520 ####[facility] [address] [place], [address] Lymphocytes/100 WBC (Bld) 6.8 % Low 19-41 [facility] Comment on above: Performed By: #### L 500.4050, L500.4100, L100.0100, L501.9520 ####[facility] [address] [place], [address] MCH (RBC) [Entitic mass] 30.7 pg Normal 27.0-32.0 [facility] Comment on above: Performed By: #### L 500.4050, L500.4100, L100.0100, L501.9520 ####[facility] [address] [place], [address] MCHC (RBC) [Mass/Vol] 30.4 g/dL Low 32-36 [facility] Comment on above: Performed By: #### L 500.4050, L500.4100, L100.0100, L501.9520 ####[facility] [address] [place], [address] MCV (RBC) [Entitic vol] 100.8 fL High 81-99 [facility] Comment on above: Performed By: #### L 500.4050, L500.4100, L100.0100, L501.9520 ####[facility] [address] [place], [address] Monocytes/100 WBC (Bld) 8.0 % Normal 0-10 [facility] Comment on above: Performed By: #### L 500.4050, L500.4100, L100.0100, L501.9520 ####[facility] [address] [place], [address] Neutrophils/100 WBC (Bld) 83.2 % High 47-70 [facility] Comment on above: Performed By: #### L 500.4050, L500.4100, L100.0100, L501.9520 ####[facility] [address] [place], [address] Nucleated RBC (Bld) [#/Vol] 0 10*3/uL Normal 0-5 [facility] Comment on above: Performed By: #### L 500.4050, L500.4100, L100.0100, L501.9520 ####[facility] [address] [place], [address] Platelet mean volume (Bld) [Entitic vol] 10.9 fL Normal 6.2-12.0 [facility] Comment on above: Performed By: #### L 500.4050, L500.4100, L100.0100, L501.9520 ####[facility] [address] [place], [address] Platelets (Bld) [#/Vol] 276 10*3/uL Normal 150-450 [facility] Comment on above: Performed By: #### L 500.4050, L500.4100, L100.0100, L501.9520 ####[facility] [address] [place], [address] RBC (Bld) [#/Vol] 3.75 10*6/uL Low 4.2-5.[address] [facility] Comment on above: Performed By: #### L 500.4050, L500.4100, L100.0100, L501.9520 ####[facility] [address] [place], [address] RDW SD 52.5 fl High 35.1-43.9 [facility] Comment on above: Performed By: #### L 500.4050, L500.4100, L100.0100, L501.9520 ####[facility] [address] [place], [address] WBC (Bld) [#/Vol] 8.5 10*3/uL Normal 4.4-11.0 [facility] Comment on above: Performed By: #### L 500.4050, L500.4100, L100.0100, L501.9520 ####[facility] [address] [place], [address] Calculated very low density lipoprotein (VLDL) cholesterol measurementOrdered By: Virginia Henriquez on 04-24-2025 Calculated very low density lipoprotein (VLDL) cholesterol measurement 19 mg/dL 5-40 [facility] Comprehensive Metabolic Prof ilon 04-24-2025 Albumin [Mass/Vol] 3.3 g/dL Low 3.4-4.8 [facility] Comment on above: Order Comment: Comme nts: Fasting Lipid Profile Performed By: #### L 500.4050, L500.4100, L100.0100, L501.9520 ####[facility] [address] [place], [address] Albumin/Globulin [Mass ratio] 1.0 {ratio} Normal 0.9-2.4 [facility] Comment on above: Order Comment: Comme nts: Fasting Lipid Profile Performed By: #### L 500.4050, L500.4100, L100.0100, L501.9520 ####[facility] [address] [place], [address] ALK PHOS 112 U/L High 35-104 [facility] Comment on above: Order Comment: Comme nts: Fasting Lipid Profile Performed By: #### L 500.4050, L500.4100, L100.0100, L501.9520 ####[facility] [address] [place], [address] ALT [Catalytic activity/Vol] 30 U/L Normal <=34 [facility] Comment on above: Order Comment: Comme nts: Fasting Lipid Profile Performed By: #### L 500.4050, L500.4100, L100.0100, L501.9520 ####[facility] [address] [place], [address] AST [Catalytic activity/Vol] 21 U/L Normal <=31 [facility] Comment on above: Order Comment: Comme nts: Fasting Lipid Profile Performed By: #### L 500.4050, L500.4100, L100.0100, L501.9520 ####[facility] [address] [place], [address] Bilirubin [Mass/Vol] 0.44 mg/dL Normal 0.00-1.30 [facility] Comment on above: Order Comment: Comme nts: Fasting Lipid Profile Performed By: #### L 500.4050, L500.4100, L100.0100, L501.9520 ####[facility] [address] [place], [address] BUN/CRE 20.9 RATIO High 10-20 [facility] Comment on above: Order Comment: Comme nts: Fasting Lipid Profile Performed By: #### L 500.4050, L500.4100, L100.0100, L501.9520 ####[facility] [address] [place], [address] Calcium [Mass/Vol] 9.4 mg/dL Normal 7.6-11.0 [facility] Comment on above: Order Comment: Comme nts: Fasting Lipid Profile Performed By: #### L 500.4050, L500.4100, L100.0100, L501.9520 ####[facility] [address] [place], [address] Chloride [Moles/Vol] 100 mmol/L Normal 98-108 [facility] Comment on above: Order Comment: Comme nts: Fasting Lipid Profile Performed By: #### L 500.4050, L500.4100, L100.0100, L501.9520 ####[facility] [address] [place], [address] CO2 [Moles/Vol] 38.0 mmol/L High 21.0-32.0 [facility] Comment on above: Order Comment: Comme nts: Fasting Lipid Profile Performed By: #### L 500.4050, L500.4100, L100.0100, L501.9520 ####[facility] [address] [place], [address] Creatinine [Mass/Vol] 0.63 mg/dL Low 0.70-1.20 [facility] Comment on above: Order Comment: Comme nts: Fasting Lipid Profile Performed By: #### L 500.4050, L500.4100, L100.0100, L501.9520 ####[facility] [address] [place], [address] ECRCL 85.25 ml/min Normal 50-250 [facility] Comment on above: Order Comment: Comme nts: Fasting Lipid Profile Performed By: #### L 500.4050, L500.4100, L100.0100, L501.9520 ####[facility] [address] [place], [address] GAP 8 Normal 5-15 [facility] Comment on above: Order Comment: Comme nts: Fasting Lipid Profile Performed By: #### L 500.4050, L500.4100, L100.0100, L501.9520 ####[facility] [address] [place], [address] GFR/1.73 sq M.predicted among non-blacks MDRD (S/P/Bld) [Vol rate/Area] 97 mL/min/{1.73_m2} Normal >60 [facility] Comment on above: Order Comment: Comme nts: Fasting Lipid Profile Result Comment: mL/m in/1.73m2 CKD-EPI Creatinine Equation (2020) Performed By: #### L 500.4050, L500.4100, L100.0100, L501.9520 ####[facility] [address] [place], [address] Globulin (S) [Mass/Vol] 3.3 g/dL Normal 2.2-4.2 [facility] Comment on above: Order Comment: Comme nts: Fasting Lipid Profile Performed By: #### L 500.4050, L500.4100, L100.0100, L501.9520 ####[facility] [address] [place], [address] Glucose [Mass/Vol] 144 mg/dL High 70-99 [facility] Comment on above: Order Comment: Comme nts: Fasting Lipid Profile Performed By: #### L 500.4050, L500.4100, L100.0100, L501.9520 ####[facility] [address] [place], [address] Potassium [Moles/Vol] 4.6 mmol/L Normal 3.3-5.1 [facility] Comment on above: Order Comment: Comme nts: Fasting Lipid Profile Performed By: #### L 500.4050, L500.4100, L100.0100, L501.9520 ####[facility] [address] [place], [address] Sodium [Moles/Vol] 146 mmol/L High 133-145 [facility] Comment on above: Order Comment: Comme nts: Fasting Lipid Profile Performed By: #### L 500.4050, L500.4100, L100.0100, L501.9520 ####[facility] [address] [place], [address] T PROT 6.6 g/dL Normal 5.9-8.4 [facility] Comment on above: Order Comment: Comme nts: Fasting Lipid Profile Performed By: #### L 500.4050, L500.4100, L100.0100, L501.9520 ####[facility] [address] [place], [address] Urea nitrogen [Mass/Vol] 13 mg/dL Normal 4-19 [facility] Comment on above: Order Comment: Comme nts: Fasting Lipid Profile Performed By: #### L 500.4050, L500.4100, L100.0100, L501.9520 ####[facility] [address] [place], [address] L499.0043on 04-24-2025 Trop T High Sen < 6 Normal <=14 [facility] Comment on above: Performed By: #### L 499.0043 ####[facility] [address] [place], [address] LDL calc ser/plasOrdered By: Virginia Henriquez on 04-24-2025 Cholesterol in LDL [Mass/Vol] 81 mg/dL [facility] Comment on above: Kuozrqpobf=957-931 m g/dL & Higher Clso=658 mg/dL or greater Laboratory - Chemistry and C hemistry - challengeOrdered By: Virginia Henriquez on 04-24-2025 AST [Catalytic activity/Vol] 21 U/L <32 [facility] Lipid Profileon 04-24-2025 CHOL:HDL 3.62 Normal [facility] Comment on above: Order Comment: Comme nts: Fasting Lipid Profile Performed By: #### L 500.4050, L500.4100, L100.0100, L501.9520 ####[facility] [address] [place], [address] Cholesterol [Mass/Vol] 138 mg/dL Normal <=200 [facility] Comment on above: Order Comment: Comme nts: Fasting Lipid Profile Result Comment: Chol esterol level, Desirable <200 mg/dLBorderline high cholesterol 200-239 mg/dLHigh cholesterol >=240 mg/dLRecommendations of the NCEP Adult Treatment Panel for thefollowing risk-cutoff thresholds for the [place] [facility] center[facility]. Performed By: #### L 500.4050, L500.4100, L100.0100, L501.9520 ####[facility] [address] [place], [address] Cholesterol in HDL [Mass/Vol] 38 mg/dL Low [facility] Comment on above: Order Comment: Comme nts: Fasting Lipid Profile Result Comment: Monika onal Cholesterol Education Program (NCEP) guidelines:<40 mg/dL: Low HDL-cholesterol (major risk factor for CHD)>= 60 mg/dL: High HDL-cholesterol (negative risk factor forCHD)HDL-cholesterol is affected by a number of factors, e.g.smoking, exercise, hormones, sex and age. Performed By: #### L 500.4050, L500.4100, L100.0100, L501.9520 ####[facility] [address] [place], [address] Cholesterol in LDL [Mass/Vol] 81 mg/dL Normal [facility] Comment on above: Order Comment: Comme nts: Fasting Lipid Profile Result Comment: Bord trujra=785-873 mg/dL Higher Erqn=553 mg/dL or greater Performed By: #### L 500.4050, L500.4100, L100.0100, L501.9520 ####[facility] [address] [place], [address] Cholesterol in VLDL [Mass/Vol] 19 mg/dL Normal 5-40 [facility] Comment on above: Order Comment: Comme nts: Fasting Lipid Profile Performed By: #### L 500.4050, L500.4100, L100.0100, L501.9520 ####[facility] [address] [place], [address] Triglyceride [Mass/Vol] 93 mg/dL Normal [facility] Comment on above: Order Comment: Comme nts: Fasting Lipid Profile Result Comment: The drugs N-Acetylcysteine and Metamizole may falselydepress this assay.Normal range: <150 mg/dLBorderline High: 150-199 mg/dLHigh: 200-499 mg/dLVery High: >500 mg/dL Performed By: #### L 500.4050, L500.4100, L100.0100, L501.9520 ####[facility] [address] [place], [address] RESPIRATORY PANEL MOLECULARo n 04-24-2025 RP PANEL Normal [facility] Comment on above: Performed By: #### M 100.638 ####[facility] [address] [place], [address] Respiratory pathogens detect ion panel by molecular detection methodOrdered By: Virginia Henriquez on 04-24-2025 Respiratory pathogens DNA and RNA panel RENETTA+probe (Resp) [facility] Screening total cholesterol/ high density lipoprotein (HDL) cholesterol ratioOrdered By: Virginia Martinez on 04-24-2025 Cholesterol.total/Cho lesterol in HDL [Mass ratio] 3.62 {ratio} [facility] Serum globulin measurementOr dered By: Virginia Henriquez on 04-24-2025 Globulin (S) [Mass/Vol] 3.3 g/dL 2.2-4.2 [facility] Serum or plasma alanine lindsey otransferase (ALT) measurementOrdered By: Virginia Henriquez on 04-24-2025 ALT [Catalytic activity/Vol] 30 U/L <35 [facility] Serum or plasma albumin tad urement (mass/volume)Ordered By: Virginia Henriquez on 04-24-2025 Albumin [Mass/Vol] 3.3 g/dL Low 3.4-4.8 [facility] Serum or plasma albumin/glob ulin mass ratioOrdered By: Virginia Henriquez on 04-24-2025 Albumin/Globulin [Mass ratio] 1.0 {ratio} 0.9-2.4 [facility] Serum or plasma alkaline zita sphatase measurementOrdered By: Virginia Henriquez on 04-24-2025 ALP [Catalytic activity/Vol] 112 U/L High 35-104 [facility] Serum or plasma cholesterol in HDL measurement (mass/volume)Ordered By: Virginia Henriquez on 04-24-2025 Cholesterol in HDL [Mass/Vol] 38 mg/dL Low >40 [facility] Comment on above: National Cholesterol Education Program (NCEP) guidelines:<40 mg/dL: Low HDL-cholesterol (major risk factor for CHD)>= 60 mg/dL: High HDL-cholesterol (negative risk factor for CHD)HDL-cholesterol is affected by a number of factors, e.g. smoking, exercise, hormones, sex and age. Serum or plasma cholesterol measurement (mass/volume)Ordered By: Virginia Henriquez on 04-24-2025 Cholesterol [Mass/Vol] 138 mg/dL <201 [facility] Comment on above: Cholesterol level, D esirable <200 mg/dLBorderline high cholesterol 200-239 mg/dLHigh cholesterol >=240 mg/dLRecommendations of the NCEP Adult Treatment Panel for the following risk-cutoff thresholds for the [place] population. TSH DL <= 0.005 mIU/L QnOrde red By: Virginia Henriquez on 04-24-2025 TSH Qn 1.970 uIU/mL 0.300-4.20 0 [facility] Thyroid Stim Hormone (TSH)on 04-24-2025 TSH 1.970 uIU/mL Normal 0.300-4.20 0 [facility] Comment on above: Order Comment: Comme nts: Fasting Lipid Profile Performed By: #### L 500.4050, L500.4100, L100.0100, L501.9520 ####[facility] [address] [place], [place], [id number] Total proteinOrdered By: Greg Henriquez on 04-24-2025 Protein [Mass/Vol] 6.6 g/dL 5.9-8.4 [facility] Triglycerides measurementOrd ered By: Virginia Henriquez on 04-24-2025 Triglyceride [Mass/Vol] 93 mg/dL <199 [facility] Comment on above: The drugs N-Acetylcy steine and Metamizole may falsely depress this assay. Normal range: <150 mg/dLBorderline High: 150-199 mg/dLHigh: 200-499 mg/dLVery High: >500 mg/dL Absolute lymphocyte countOrd ered By: Cele Morgan on 04-23-2025 Lymphocytes Auto (Unsp spec) [#/Vol] 0.71 10*3/uL Low 0.83-4.51 [facility] Absolute neutrophil countOrd ered By: Cele Morgan on 04-23-2025 Neutrophils (Bld) [#/Vol] 7.6 10*3/uL 2.0-7.7 [facility] Anion gap in Serum or Plasma Ordered By: Cele Morgan on 04-23-2025 Anion gap [Moles/Vol] 10 mmol/L 5-15 [facility] Automated lymphocyte count a s percentage of total leukocytesOrdered By: Cele Morgan on 04-23-2025 Lymphocytes/100 WBC Auto (Unsp spec) 7.9 % Low 19-41 [facility] BUN/creatinine ratioOrdered By: Cele Morgan on 04-23-2025 Urea nitrogen/Creatinine [Mass ratio] 22.2 mg/mg High 10-20 [facility] Basic Metabolic Profile (BMP )on 04-23-2025 BUN/CRE 22.2 RATIO High - [facility] Comment on above: Performed By: #### L 500.2500, L100.0100 ####[facility] [address] [place], [place], [id number] Calcium [Mass/Vol] 9.6 mg/dL Normal 7.6-11.0 [facility] Comment on above: Performed By: #### L 500.2500, L100.0100 ####[facility] [address] [place], [address] Chloride [Moles/Vol] 96 mmol/L Low 98-108 [facility] Comment on above: Performed By: #### L 500.2500, L100.0100 ####[facility] [address], [address] CO2 [Moles/Vol] 38.0 mmol/L High 21.0-32.0 [facility] Comment on above: Performed By: #### L 500.2500, L100.0100 ####[facility] [address] [place], [address] Creatinine [Mass/Vol] 0.65 mg/dL Low 0.70-1.20 [facility] Comment on above: Performed By: #### L 500.2500, L100.0100 ####[facility] [address] [place], [address] ECRCL 85.20 ml/min Normal 50-250 [facility] Comment on above: Performed By: #### L 500.2500, L100.0100 ####[facility] [address] [place], [address] GAP 10 Normal 5-15 [facility] Comment on above: Performed By: #### L 500.2500, L100.0100 ####[facility] [facility] [address] [place], [address] GFR/1.73 sq M.predicted among non-blacks MDRD (S/P/Bld) [Vol rate/Area] 97 mL/min/{1.73_m2} Normal >60 [facility] Comment on above: Result Comment: mL/m in/1.73m2 CKD-EPI Creatinine Equation (2020) Performed By: #### L 500.2500, L100.0100 ####[facility] [address] [place], [address] Glucose [Mass/Vol] 110 mg/dL High 70-99 [facility] Comment on above: Performed By: #### L 500.2500, L100.0100 ####[facility] [address] [place], [address] Potassium [Moles/Vol] 3.9 mmol/L Normal 3.3-5.1 [facility] Comment on above: Performed By: #### L 500.2500, L100.0100 ####[facility] [address] [place], [address] Sodium [Moles/Vol] 145 mmol/L Normal 133-145 [facility] Comment on above: Performed By: #### L 500.2500, L100.0100 ####[facility] [address] [place], [address] Urea nitrogen [Mass/Vol] 14 mg/dL Normal 4-19 [facility] Comment on above: Performed By: #### L 500.2500, L100.0100 ####[facility] [address] [place], [address] Basophil percentageOrdered B y: Cele Morgan on 04-23-2025 Basophils/100 WBC (Bld) 0.6 % 0-1 [facility] Bilirubin Test strip Ql (U)O rdered By: Cele Morgan on 04-23-2025 Bilirubin Ql (U) 1 mg/dL High Negative [facility] Comment on above: COLOR OF URINE MAY A FFECT DIPSTICK RESULTS. Brain/Head without Contrasto n 04-23-2025 Brain/Head without Contrast Normal [facility] CBC W/Diff, Automatedon 03-29 Absolute Lymph 0.71 X10 3/uL Low 0.83-4.51 [facility] Comment on above: Performed By: #### L 500.2500, L100.0100 ####[facility] [address] [place], [address] Absolute Neut 7.6 X10 3/uL Normal 2.0-7.7 [facility] Comment on above: Performed By: #### L 500.2500, L100.0100 ####[facility] [address] [place], [address] Basophils/100 WBC (Bld) 0.6 % Normal 0-1 [facility] Comment on above: Performed By: #### L 500.2500, L100.0100 ####[facility] [address] [place], [address] Eosinophils/100 WBC (Bld) 0.8 % Normal 0-5 [facility] Comment on above: Performed By: #### L 500.2500, L100.0100 ####[facility] [address] [place], [address] Erythrocyte distribution width (RBC) [Ratio] 14.2 % Normal 11.6-14.6 [facility] Comment on above: Performed By: #### L 500.2500, L100.0100 ####[facility] [address] [place], [address] Hematocrit (Bld) [Volume fraction] 40.2 % Normal 37-47 [facility] Comment on above: Performed By: #### L 500.2500, L100.0100 ####[facility] [address] [place], [address] Hemoglobin (Bld) [Mass/Vol] 12.7 g/dL Normal 12.0-15.0 [facility] Comment on above: Performed By: #### L 500.2500, L100.0100 ####[facility] [address] [place], [address] IG% 0.300 Normal 0.0-0.9 [facility] Comment on above: Result Comment: IG% - Immature Granulocytes (promyelocytes, myelocytes andmetamyelocytes) > 1% indicates that a LEFT SHIFT is Present. Performed By: #### L 500.2500, L100.0100 ####[facility] [address] [place], [address] Lymphocytes/100 WBC (Bld) 7.9 % Low 19-41 [facility] Comment on above: Performed By: #### L 500.2500, L100.0100 ####[facility] [address] [place], [address] MCH (RBC) [Entitic mass] 31.2 pg Normal 27.0-32.0 [facility] Comment on above: Performed By: #### L 500.2500, L100.0100 ####[facility] [address] [place], [address] MCHC (RBC) [Mass/Vol] 31.6 g/dL Low 32-36 [facility] Comment on above: Performed By: #### L 500.2500, L100.0100 ####[facility] [address] [place], [address] MCV (RBC) [Entitic vol] 98.8 fL Normal 81-99 [facility] Comment on above: Performed By: #### L 500.2500, L100.0100 ####[facility] [address] [place], [address] Monocytes/100 WBC (Bld) 6.6 % Normal 0-10 [facility] Comment on above: Performed By: #### L 500.2500, L100.0100 ####[facility] [address] [place], [address] Neutrophils/100 WBC (Bld) 83.8 % High 47-70 [facility] Comment on above: Performed By: #### L 500.2500, L100.0100 ####[facility] [address] [place], [address] Nucleated RBC (Bld) [#/Vol] 0 10*3/uL Normal 0-5 [facility] Comment on above: Performed By: #### L 500.2500, L100.0100 ####[facility] [address] [place], [address] Platelet mean volume (Bld) [Entitic vol] 10.4 fL Normal 6.2-12.0 [facility] Comment on above: Performed By: #### L 500.2500, L100.0100 ####[facility] [address] [place], [address] Platelets (Bld) [#/Vol] 285 10*3/uL Normal 150-450 [facility] Comment on above: Performed By: #### L 500.2500, L100.0100 ####[facility] [address] [place], [address] RBC (Bld) [#/Vol] 4.07 10*6/uL Low 4.2-5.[address] [facility] Comment on above: Performed By: #### L 500.2500, L100.0100 ####[facility] [address] [place], [address] RDW SD 51.3 fl High 35.1-43.9 [facility] Comment on above: Performed By: #### L 500.2500, L100.0100 ####[facility] [address] [place], [address] WBC (Bld) [#/Vol] 9.0 10*3/uL Normal 4.4-11.0 [facility] Comment on above: Performed By: #### L 500.2500, L100.0100 ####[facility] [address] [place], [address] CNOVon 04-23-2025 CNOV Office Visit (FAMPWS ) RAJENDRA LUCERO ([id number]) 1955 F Date Time Provider Department 04/23/25 3:00 PM TYRA CARSON During your visit today, we recorded the following information about you: Pulse Respiration Blood pressure Weight 129/minute 20/minute 122/62 116.2 kg Tyra Carson APRN.FILTERS ASSEMBLER 04/23/2025 4:30 PM Signed This is a [...] week for further evaluation. and Recording using Optini software for draft documentation of the visit was discussed with the patient/authorized ict sales representative; all questions welcomed and answered. Patient/authorized ict sales representative agreed to proceed HISTORY OF PRESENT ILLNESS: Linwood was in the hospital in January for new onset of atrial flutter. She was initiated on eliquis and metoprolol and now being seen by cardiology. She was referred to a [facility] cardio electro doc and is in [...] disease) (HCC) 02/03/2010 Coronary artery disease No [place], CHF. No heart cath. Diverticulosis of colon [...] 2027 I (more content not included)... Normal [facility] Carbon dioxide, total [Moles /volume] in Central venous bloodOrdered By: Cele Morgan on 04-23-2025 CO2 [Moles/Vol] 38.0 mmol/L High 21.0-32.0 [facility] Chest PA and Lateralon 04-23 Chest PA and Lateral Normal [facility] Chloride assayOrdered By: Celine Morgan on 04-23-2025 Chloride [Moles/Vol] 96 mmol/L Low 98-108 [facility] Emergency Department Summary on 04-23-2025 Emergency Department Summary Normal [facility] Eosinophil percentageOrdered By: Cele Morgan on 04-23-2025 Eosinophils/100 WBC (Bld) 0.8 % 0-5 [facility] Erythrocyte distribution wid th ratioOrdered By: Cele Morgan on 04-23-2025 Erythrocyte distribution width (RBC) [Ratio] 14.2 % 11.6-14.6 [facility] Erythrocyte distribution wid th standard deviationOrdered By: Cele Morgan on 04-23-2025 Erythrocyte distribution width (RBC) [Ratio] 51.3 fl High 35.1-43.9 [facility] Glomerular filtration rate ( GFR) estimation/1.73 sq m using serum, plasma, or whole bOrdered By: Cele Morgan on 04-23-2025 GFR/1.73 sq M.predicted among non-blacks MDRD (S/P/Bld) [Vol rate/Area] 97 mL/min/{1.73_m2} >60 [facility] Comment on above: mL/min/1.73m2 CKD-EP I Creatinine Equation (2020) H AND P Exam - Hospitaliston 04-23-2025 H&P Exam - Hospitalist Normal [facility] Hematocrit Auto (Bld) [Volum e fraction]Ordered By: Cele Morgan on 04-23-2025 Hematocrit (Bld) [Volume fraction] 40.2 % 37-47 [facility] Hemoglobin measurementOrdere d By: Cele Morgan on 04-23-2025 Hemoglobin (Bld) [Mass/Vol] 12.7 g/dL 12.0-15.0 [facility] Immature granulocytes/100 WB C Auto (Bld)Ordered By: Cele Morgan on 04-23-2025 Immature granulocytes/100 WBC (Bld) 0.300 % 0.0-0.9 [facility] Comment on above: IG% - Immature Granu locytes (promyelocytes, myelocytes and metamyelocytes) > 1% indicates that a LEFT SHIFT is Present. Ketones Test strip Ql (U)Ord ered By: Cele Morgan on 04-23-2025 Ketones Ql (U) 50 mg/dl High Negative [facility] L499.0042on 04-23-2025 Trop T High Sen < 6 Normal <=14 [facility] Comment on above: Performed By: #### L 499.0042 ####[facility] [address] [place], [address] L501.4021on 04-23-2025 Trop T High Sen < 6 Normal <=14 [facility] Comment on above: Performed By: #### L 501.4021 ####[facility] [address] [place], [address] L509.7001on 04-23-2025 Procalcitonin 0.14 ng/mL High <=0.10 [facility] Comment on above: Result Comment: Inte rpretation:<0.10-0.25 ng/mL: Antibiotic therapy discouraged. Bacterialinfection unlikely.0.25-0.50 ng/mL: Antibiotic therapy encouraged. Bacterialinfection possible.>0.50 ng/mL: Antibiotic therapy strongly encouraged.Suggestive of presence of bacterial infection.PCT should always be interpreted in the clinical context ofthe patient. Therefore, clinicians should use the PCTresults in conjunction with other laboratory findings andclinical signs of the patient. Performed By: #### L 509.7001 ####[facility] [address] [place], [address] MCV (mean corpuscular volume ) determinationOrdered By: Cele Morgan on 04-23-2025 MCV (RBC) [Entitic vol] 98.8 fL 81-99 [facility] Magnesiumon 04-23-2025 Magnesium [Mass/Vol] 1.8 mg/dL Normal 1.5-2.2 [facility] Comment on above: Order Comment: Comme nts: May add to ED labsComments: may add to ED labs Performed By: #### L 501.5208, L501.2300 ####[facility] [address] [place], [place], [address] Magnesium measurement (mass/ volume)Ordered By: Virginia Henriquez on 04-23-2025 Magnesium (Unsp spec) [Mass/Vol] 1.8 mg/dL 1.5-2.2 [facility] Mean corpuscular hemoglobin (MCH) determinationOrdered By: Cele Morgan on 04-23-2025 MCH (RBC) [Entitic mass] 31.2 pg 27.0-32.0 [facility] Mean corpuscular hemoglobin concentration (MCHC) determinationOrdered By: Cele Morgan on 04-23-2025 MCHC (RBC) [Mass/Vol] 31.6 g/dL Low 32-36 [facility] Mean platelet volume determi nationOrdered By: Cele Morgan on 04-23-2025 Platelet mean volume (Bld) [Entitic vol] 10.4 fL 6.2-12.0 [facility] Microscopic analysis of urin e for red blood cells (RBC)Ordered By: Cele Morgan on 04-23-2025 Microscopic analysis of urine for red blood cells (RBC) 0 SEEN /hpf 0-5 [facility] Monocyte percentageOrdered B y: Cele Morgan on 04-23-2025 Monocytes/100 WBC (Bld) 6.6 % 0-10 [facility] Mucus LM Ql (Urine sed)Order ed By: Cele Morgan on 04-23-2025 Mucus Ql (Urine sed) 2+ /hpf [facility] Neutrophil percentageOrdered By: Cele Morgan on 04-23-2025 Neutrophils/100 WBC (Bld) 83.8 % High 47-70 [facility] Nitrite Test strip Ql (U)Ord ered By: Cele Morgan on 04-23-2025 Nitrite Ql (U) Negative Negative [facility] Nucleated red blood cell per centageOrdered By: Cele Morgan on 04-23-2025 Nucleated RBC/100 WBC (Bld) [Ratio] 0 % 0-5 [facility] Phosphoruson 04-23-2025 Phosphate [Mass/Vol] 3.6 mg/dL Normal 2.7-4.5 [facility] Comment on above: Order Comment: Comme nts: May add to ED labsComments: may add to ED labs Performed By: #### L 501.5200, L501.2300 ####[facility] [address] [place], [address] Platelet countOrdered By: Celine Morgan on 04-23-2025 Platelets (Bld) [#/Vol] 285 10*3/uL 150-450 [facility] Potassium measurement (mass/ volume)Ordered By: Cele Morgan on 04-23-2025 Potassium (Unsp spec) [Mass/Vol] 3.9 mmol/L 3.3-5.1 [facility] Procalcitonin [Mass/volume] in Serum or Plasma by ImmunoassayOrdered By: Virginia Henriquez on 04-23-2025 Procalcitonin IA [Mass/Vol] 0.14 ng/mL High <0.11 [facility] Comment on above: Interpretation:<0.10 -0.25 ng/mL: Antibiotic [...] Protein Ql (U) 30 mg/dl High Negative [facility] RBC Auto (Bld) [#/Vol]Ordere d By: Cele Morgan on 04-23-2025 RBC (Bld) [#/Vol] 4.07 10*6/uL Low 4.2-5.[address] [facility] Serum creatinine measurement (mass/volume)Ordered By: Cele Morgan on 04-23-2025 Creatinine [Mass/Vol] 0.65 mg/dL Low 0.70-1.20 [facility] Serum glucose measurement (m ass/volume)Ordered By: Cele Morgan on 04-23-2025 Glucose [Mass/Vol] 110 mg/dL High 70-99 [facility] Serum or plasma calcium tad urement (mass/volume)Ordered By: Cele Morgan on 04-23-2025 Calcium [Mass/Vol] 9.6 mg/dL 7.6-11.0 [facility] Serum or plasma urea nitroge n measurement (mass/volume)Ordered By: Cele Morgan on 04-23-2025 Urea nitrogen [Mass/Vol] 14 mg/dL 4-19 [facility] Sodium levelOrdered By: Len Morgan on 04-23-2025 Sodium [Moles/Vol] 145 mmol/L 133-145 [facility] Squamous epithelial cells de tection in urine sediment by light microscopyOrdered By: Cele Morgan on 04-23-2025 Epithelial cells.squamous LM Ql (Urine sed) 5-10 SEEN /hpf 5-10 [facility] Troponin T.cardiac [Mass/vol ume] in Serum or Plasma by High sensitivity methodOrdered By: Virginia Henriquez on 04-23-2025 Troponin T.cardiac High sensitivity method [Mass/Vol] < 6 ng/L <14 [facility] Troponin T.cardiac [Mass/vol ume] in Serum or Plasma by High sensitivity methodOrdered By: Cele Morgan on 04-23-2025 Troponin T.cardiac High sensitivity method [Mass/Vol] < 6 ng/L <14 [facility] Troponin T.cardiac High sensitivity method [Mass/Vol] < 6 ng/L <14 [facility] Urinalysis, Completeon 04-23 BACTERIA 2+ /hpf Normal None Seen [facility] Comment on above: Order Comment: BENITO CTOR TO SPECIFY Performed By: #### L 400.0001 ####[facility] [address] [place], [address] EPI,SQUAMOUS 5-10 SEEN Normal 5-10 [facility] Comment on above: Order Comment: BENITO CTOR TO SPECIFY Performed By: #### L 400.0001 ####[facility] [address] [place], [address] Mucus Ql (Urine sed) 2+ /hpf Normal [facility] Comment on above: Order Comment: BENITO CTOR TO SPECIFY Performed By: #### L 400.0001 ####[facility] [address] [place], [address] WBC 10-25 SEEN Normal 0-5 [facility] Comment on above: Order Comment: BENITO CTOR TO SPECIFY Performed By: #### L 400.0001 ####[facility] [address] [place], [address] RBC 0 SEEN Normal 0-5 [facility] Comment on above: Order Comment: BENITO CTOR TO SPECIFY Performed By: #### L 400.0001 ####[facility] [address] [place], [address] Urine clarityOrdered By: Humza Morgan on 04-23-2025 Clarity (U) Clear Clear [facility] Urine color determinationOrd ered By: Cele Morgan on 04-23-2025 Color (U) Yellow Yellow [facility] Urine glucose detectionOrder ed By: Cele Morgan on 04-23-2025 Glucose Ql (U) Normal mg/dl Normal [facility] Urine leukocyte esterase det ection by dipstickOrdered By: Cele Morgan on 04-23-2025 Leukocyte esterase Test strip Ql (U) 25 /ul High Negative [facility] Urine pHOrdered By: Glenna Morgan on 04-23-2025 pH (U) 6.0 [pH] 5.0 - 8.0 [facility] Urine sediment bacteria coun t by microscopy (number/high power field)Ordered By: Cele Morgan on 04-23-2025 Bacteria LM.HPF (Urine sed) [#/Area] 2 /[HPF] None Seen [facility] Urine specific gravity measu rementOrdered By: Cele Morgan on 04-23-2025 Specific gravity (U) [Rel density] 1.015 1.002-1.03 0 [facility] Urine urobilinogen measureme ntOrdered By: Cele Morgan on 04-23-2025 Urobilinogen Ql (U) 1 mg/dl High Normal [facility] White blood cell (WBC) count Ordered By: Cele Morgan on 04-23-2025 WBC (Bld) [#/Vol] 9.0 10*3/uL 4.4-11.0 [facility] White blood cell countOrdere d By: Cele Morgan on 04-23-2025 White blood cell count 10-25 SEEN /hpf 0-5 [facility] Bacteria Ur Culton Bacteria identified Cx Nom (U) ORGANISM ID: 1 10,000 -<50,000 CFU/ml Mixed microbiota No further workup. Mixed microbiota can be due to???urine???contamination with skin bacteria at time of collection or presence of a long-term urinary catheter. If a new culture is needed, please consider re-education of the patient on proper midstream co llection technique or straight catheterization for???urine???collection. Normal [facility] Comment on above: Performed By: #### 6 30-4 ####[facility] LABCLIA [id number] [address] OF [place] CNOVon 04-20-2025 CNOV Office Visit (UCWSTR ) RAJENDRA LUCERO ([id number]) 1955 F Date Time Provider Department 04/20/25 9:45 AM DAMON EUGENE [facility] During your visit today, we recorded the following information about you: Temperature Pulse Respiration Blood pressure 98.4 degrees 94/minute 18/minute 132/80 Weight 117 kg Damon Eugene APRN.FILTERS ASSEMBLER 04/20/2025 10:23 AM Signed [facility] [...] week for further evaluation. and Recording using Optini software for draft documentation of the visit was discussed with the patient/authorized ict sales representative; all questions welcomed and answered. Patient/authorized ict sales representative agreed to proceed MDM Procedures Milena [...] 10 capsuleRfl: 0 UA DIP, URINE (POC) [[id number]] Order #: [id number]. #:[id number] nystatin (MYCOSTATIN) creamApply to affected area two times a day for 14 days.Disp: 30 gRfl: 0 BACTERIAL CULTURE, URINE [SQURCUL] Order #: [id number]. #:[id number] Prescriptions as of 04/20/2025 - nitrofurantoin monohydrate [...] as ne (more content not included)... Normal [facility] UA DIP, URINE (POC)on 2024 BILIRUBIN UA (POCT) Small Abnormal Negative [facility] CLARITY UA (POCT) Turbid [facility] COLOR UA (POCT) Dark yellow [facility] GLUCOSE UA (POCT) Negative Negative mg/dL [facility] Hemoglobin Ql (U) Moderate Abnormal Negative [facility] Interpretation and review of laboratory results Abnormal [facility] KETONE UA (POCT) Trace Negative mg/dL [facility] LEUKOCYTES UA (POCT) Negative Negative [facility] NITRITE UA (POCT) Negative Negative [facility] PH UA (POCT) 6 4.5 - 8.0 [facility] Protein Ql (U) 30 mg/dL Abnormal Negative [facility] SPECIFIC GRAVITY UA (POCT) 1.015 1.005 - 1.030 [facility] UROBILINOGEN UA (POCT) 2 Abnormal Normal E.U./dL [facility] Location:[facility], [address] [place] [address], [place], [address] [facility] POINT OF CARE [facility] CNOVon 03-31-2025 CNOV Office Visit (FAMPWS ) RAJENDRA LUCERO ([id number]) 1955 F Date Time Provider Department 03/31/25 1:00 PM JANETTE DAMON During your visit today, we recorded the following information about you: Pulse Respiration Blood pressure Weight 91/minute 18/minute 124/82 119.1 kg Janette Damon APRN.FILTERS ASSEMBLER 03/31/2025 1:06 PM Signed 03/31/2025 Patient presents with: BP Check: Had appointment with cardiology yesterday; MANI Elena Recording using Optini software for draft documentation of the visit was discussed with the patient/authorized ict sales representative; all questions welcomed and answered. Patient/authorized ict sales representative agreed to proceed SUBJECTIVE: This is a 69 year old that is here today for Above Complaints.. Atrial Flutter: - Recent consultation with Dr. Elena, who referred her to Dr. Marcos Santos, an telecommunications analyst, for potential ablation. - Dr. Elena indicated [...] heart failure) (HCC) Chronic hypoxemic respiratory failure ([facility]) COPD (chronic obstructive pulmonary disease) ([facility]) 02/03/2010 Coronary artery disease No [place], CHF. No heart cath. Diverticulosis of colon [...] hours as needed for wheezing/shortness of breath. zrjndllppcq-vwdiiqhgl-vbrszrd r (TRELEGY ELLIPTA) 200-62.5-25 mcg inhalation powder [...] Discussion Nev (more content not included)... Normal [facility] Cardiology Visit Reporton Cardiology Visit Report Normal [facility] CNOVon 03-10-2025 CNOV Office Visit (PULMWS ) RAJENDRA LUCERO ([id number]) 1955 F Date Time Provider Department 03/10/25 1:00 PM RAJENDRA GOODMAN PULMWS During your visit today, we recorded the following information about you: Rajendra Goodman, RESIDENCE LIFE COORDINATOR.FILTERS ASSEMBLER 03/10/2025 1:47 PM Signed Pulmonary Medicine Patients name: Rajendra Palumbo PCP: Phuc Martines DO CC: concern for ROXY HPI: Rajendra Lucero is a 69 year old female former 38-hfme-okid smoker, quitting in 2008 with PMH significant [...] that time. She was just hospitalized at [facility] 02/19 - 02/23 for SOB/leg swelling [...] is measured by staff High risk of ORXY: answering yes to three or more items Low risk of ROXY: answering yes to less than three items PAST MEDICAL HISTORY Diagnosis Date Atrial flutter (HCC) CHF (congestive heart failure) (HCC) Chronic hypoxemic respiratory failure (HCC) COPD (chronic obstructive pulmonary disease) ([facility]) 02/03/2010 Coronary artery disease No [place], CHF. No heart cath. Diverticulosis of colon [...] ELLIPTA 200-62.5-25 mcg inhalation powder Generic drug: yfoigvmdrsu-dbrowiram-yxirudb r Inhale 1 Puff as instructed once [...] 3 LungR (more content not included)... Normal [facility] Basic Metabolic Profile (BMP )on 03-02-2025 BUN Normal 4-19 [facility] Comment on above: Result Comment: Canc elled via OM: Order cancelled - Patient discharged Performed By: #### L 500.2500, L100.0100 ####[facility] [address] [place], [address] BUN/CRE Normal 10-20 [facility] Comment on above: Result Comment: Canc elled via OM: Order cancelled - Patient discharged Performed By: #### L 500.2500, L100.0100 ####[facility] [address] [place], [address] Calcium Normal 7.6-11.0 [facility] Comment on above: Result Comment: Canc elled via OM: Order cancelled - Patient discharged Performed By: #### L 500.2500, L100.0100 ####[facility] [address] [place], [address] CL Normal 98-108 [facility] Comment on above: Result Comment: Canc elled via OM: Order cancelled - Patient discharged Performed By: #### L 500.2500, L100.0100 ####[facility] [address] [place], [address] CO2 Normal 21.0-32.0 [facility] Comment on above: Result Comment: Canc elled via OM: Order cancelled - Patient discharged Performed By: #### L 500.2500, L100.0100 ####[facility] [address] [place], [address] CREAT,SERUM Normal 0.70-1.20 [facility] Comment on above: Result Comment: Canc elled via OM: Order cancelled - Patient discharged Performed By: #### L 500.2500, L100.0100 ####[facility] [address] [place], [address] eGFR Normal >60 [facility] Comment on above: Result Comment: Canc elled via OM: Order cancelled - Patient discharged Performed By: #### L 500.2500, L100.0100 ####[facility] [address] [place], [address] GAP Normal 5-15 [facility] Comment on above: Result Comment: Canc elled via OM: Order cancelled - Patient discharged Performed By: #### L 500.2500, L100.0100 ####[facility] [address] [place], [address] GLU Normal 70-99 [facility] Comment on above: Result Comment: Canc elled via OM: Order cancelled - Patient discharged Performed By: #### L 500.2500, L100.0100 ####[facility] [address] [place], [address] Potassium Normal 3.3-5.1 [facility] Comment on above: Result Comment: Canc elled via OM: Order cancelled - Patient discharged Performed By: #### L 500.2500, L100.0100 ####[facility] [address] [place], [address] Basic Metabolic Profile (BMP) Normal 133-145 [facility] Comment on above: Result Comment: Canc elled via OM: Order cancelled - Patient discharged Performed By: #### L 500.2500, L100.0100 ####[facility] [address] [place], [address] CBC W/Diff, Automatedon 05-0 6-2024 Absolute Neut Normal 2.0-7.7 [facility] Comment on above: Result Comment: Canc elled via OM: Order cancelled - Patient discharged Performed By: #### L 500.2500, L100.0100 ####[facility] [address] [place], [address] HCT Normal 37-47 [facility] Comment on above: Result Comment: Canc elled via OM: Order cancelled - Patient discharged Performed By: #### L 500.2500, L100.0100 ####[facility] [address] [place], [address] HGB Normal 12.0-15.0 [facility] Comment on above: Result Comment: Canc elled via OM: Order cancelled - Patient discharged Performed By: #### L 500.2500, L100.0100 ####[facility] [address] [place], [address] MCH Normal 27.0-32.0 [facility] Comment on above: Result Comment: Canc elled via OM: Order cancelled - Patient discharged Performed By: #### L 500.2500, L100.0100 ####[facility] [address] [place], [address] MCHC Normal 32-36 [facility] Comment on above: Result Comment: Canc elled via OM: Order cancelled - Patient discharged Performed By: #### L 500.2500, L100.0100 ####[facility] [address] [place], [address] MCV Normal 81-99 [facility] Comment on above: Result Comment: Canc elled via OM: Order cancelled - Patient discharged Performed By: #### L 500.2500, L100.0100 ####[facility] [address] [place], [address] NEUT% Normal 47-70 [facility] Comment on above: Result Comment: Canc elled via OM: Order cancelled - Patient discharged Performed By: #### L 500.2500, L100.0100 ####[facility] [address], [address] PLT Normal 150-450 [facility] Comment on above: Result Comment: Canc elled via OM: Order cancelled - Patient discharged Performed By: #### L 500.2500, L100.0100 ####[facility] [address] [place], [address] RBC Normal 4.2-5.4 [facility] Comment on above: Result Comment: Canc elled via OM: Order cancelled - Patient discharged Performed By: #### L 500.2500, L100.0100 ####[facility] [address] [place], [address] RDW CV Normal 11.6-14.6 [facility] Comment on above: Result Comment: Canc elled via OM: Order cancelled - Patient discharged Performed By: #### L 500.2500, L100.0100 ####[facility] [address], [address] RDW SD Normal 35.1-43.9 [facility] Comment on above: Result Comment: Canc elled via OM: Order cancelled - Patient discharged Performed By: #### L 500.2500, L100.0100 ####[facility] [address], [address] WBC Normal 4.4-11.0 [facility] Comment on above: Result Comment: Canc elled via OM: Order cancelled - Patient discharged Performed By: #### L 500.2500, L100.0100 ####[facility] [address] [place], [address] Basic Metabolic Profile (BMP )on 03-01-2025 BUN Normal 4-19 [facility] Comment on above: Result Comment: Canc elled via OM: Order cancelled - Patient discharged Performed By: #### L 100.0100, L500.2500 ####[facility] [address] [place], [address] BUN/CRE Normal 10-20 [facility] Comment on above: Result Comment: Canc elled via OM: Order cancelled - Patient discharged Performed By: #### L 100.0100, L500.2500 ####[facility] [address] [place], [address] Calcium Normal 7.6-11.0 [facility] Comment on above: Result Comment: Canc elled via OM: Order cancelled - Patient discharged Performed By: #### L 100.0100, L500.2500 ####[facility] [address] [place], [address] CL Normal 98-108 [facility] Comment on above: Result Comment: Canc elled via OM: Order cancelled - Patient discharged Performed By: #### L 100.0100, L500.2500 ####[facility] [address] [place], [address] CO2 Normal 21.0-32.0 [facility] Comment on above: Result Comment: Canc elled via OM: Order cancelled - Patient discharged Performed By: #### L 100.0100, L500.2500 ####[facility] [address] [place], [address] CREAT,SERUM Normal 0.70-1.20 [facility] Comment on above: Result Comment: Canc elled via OM: Order cancelled - Patient discharged Performed By: #### L 100.0100, L500.2500 ####[facility] [address] [place], [address] eGFR Normal >60 [facility] Comment on above: Result Comment: Canc elled via OM: Order cancelled - Patient discharged Performed By: #### L 100.0100, L500.2500 ####[facility] [address] [place], [address] GAP Normal 5-15 [facility] Comment on above: Result Comment: Canc elled via OM: Order cancelled - Patient discharged Performed By: #### L 100.0100, L500.2500 ####[facility] [address] [place], [address] GLU Normal 70-99 [facility] Comment on above: Result Comment: Canc elled via OM: Order cancelled - Patient discharged Performed By: #### L 100.0100, L500.2500 ####[facility] [address] [place], [address] Potassium Normal 3.3-5.1 [facility] Comment on above: Result Comment: Canc elled via OM: Order cancelled - Patient discharged Performed By: #### L 100.0100, L500.2500 ####[facility] [address] [place], [address] Basic Metabolic Profile (BMP) Normal 133-145 [facility] Comment on above: Result Comment: Canc elled via OM: Order cancelled - Patient discharged Performed By: #### L 100.0100, L500.2500 ####[facility] [address] [place], [address] CBC W/Diff, Automatedon 05-0 5-2024 Absolute Neut Normal 2.0-7.7 [facility] Comment on above: Result Comment: Canc elled via OM: Order cancelled - Patient discharged Performed By: #### L 100.0100, L500.2500 ####[facility] [address] [place], [address] HCT Normal 37-47 [facility] Comment on above: Result Comment: Canc elled via OM: Order cancelled - Patient discharged Performed By: #### L 100.0100, L500.2500 ####[facility] [address], [address] HGB Normal 12.0-15.0 [facility] Comment on above: Result Comment: Canc elled via OM: Order cancelled - Patient discharged Performed By: #### L 100.0100, L500.2500 ####[facility] [address] [place], [address] MCH Normal 27.0-32.0 [facility] Comment on above: Result Comment: Canc elled via OM: Order cancelled - Patient discharged Performed By: #### L 100.0100, L500.2500 ####[facility] [address] [place], [address] MCHC Normal 32-36 [facility] Comment on above: Result Comment: Canc elled via OM: Order cancelled - Patient discharged Performed By: #### L 100.0100, L500.2500 ####[facility] [address] [place], [address] MCV Normal 81-99 [facility] Comment on above: Result Comment: Canc elled via OM: Order cancelled - Patient discharged Performed By: #### L 100.0100, L500.2500 ####[facility] [address] [place], [address] NEUT% Normal 47-70 [facility] Comment on above: Result Comment: Canc elled via OM: Order cancelled - Patient discharged Performed By: #### L 100.0100, L500.2500 ####[facility] [address] [place], [address] PLT Normal 150-450 [facility] Comment on above: Result Comment: Canc elled via OM: Order cancelled - Patient discharged Performed By: #### L 100.0100, L500.2500 ####[facility] [address] [place], [address] RBC Normal 4.2-5.4 [facility] Comment on above: Result Comment: Canc elled via OM: Order cancelled - Patient discharged Performed By: #### L 100.0100, L500.2500 ####[facility] [address] [place], [address] RDW CV Normal 11.6-14.6 [facility] Comment on above: Result Comment: Canc elled via OM: Order cancelled - Patient discharged Performed By: #### L 100.0100, L500.2500 ####[facility] [address] [place], [address] RDW SD Normal 35.1-43.9 [facility] Comment on above: Result Comment: Canc elled via OM: Order cancelled - Patient discharged Performed By: #### L 100.0100, L500.2500 ####[facility] [address] [place], [address] WBC Normal 4.4-11.0 [facility] Comment on above: Result Comment: Canc elled via OM: Order cancelled - Patient discharged Performed By: #### L 100.0100, L500.2500 ####[facility] [address] [place], [address] CNOVon 03-01-2025 CNOV Office Visit (ZULEIKAWS ) RAJENDRA LUCERO ([id number]) 1955 F Date Time Provider Department 03/01/25 12:20 PM JANETTE DAMON During your visit today, we recorded the following information about you: Pulse Respiration Blood pressure Weight 76/minute 18/minute 116/70 118.9 kg Janette Damon APRN.CNP 03/01/2025 2:15 PM Signed 02/26/2025 Patient presents with: Hospital F/U: [facility] COPD SUBJECTIVE: This is a 69 year old that is here today for Above Complaints. HOSPITAL/ER FOLLOW UP: Reason for visit: SOB, and leg swelling Which facility: [facility] Date of visit: 02/19/2025-02/23/2025 Diagnosis: COPD, [...] as yet. Was wanting to stay within [facility] system. Denies dyspnea, orthopnea wheezing, chest pain, palpitations or leg swelling. 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 Last appointment on 12/25/2024. Uses 3/4L/NC at rest and 6 L/NC with exertion. She feels her breathing as at her baseline. ER records reviewed PAST MEDICAL HISTORY Diagnosis Date Chronic hypoxemic respiratory failure (HCC) COPD (chronic obstructive pulmonary disease) (HCC) 02/03/2010 Coronary artery disease No [place], CHF. No heart cath. Diverticulosis of colon [...] hours as needed for wheezing/shortness of breath. digfryqamws-kthmzmdzx-xseofrk r (TRELEGY ELLIPTA) 200-62.5-25 mcg inhalation powder [...] 11/09/2025 M (more content not included)... Normal [facility] Basic Metabolic Profile (BMP )on 02-28-2025 BUN Normal 4-19 [facility] Comment on above: Result Comment: Canc elled via OM: Order cancelled - Patient discharged Performed By: #### L 100.0100, L500.2500 ####[facility] [address] [place], [address] BUN/CRE Normal 10-20 [facility] Comment on above: Result Comment: Canc elled via OM: Order cancelled - Patient discharged Performed By: #### L 100.0100, L500.2500 ####[facility] [address] [place], [address] Calcium Normal 7.6-11.0 [facility] Comment on above: Result Comment: Canc elled via OM: Order cancelled - Patient discharged Performed By: #### L 100.0100, L500.2500 ####[facility] [address] [place], [address] CL Normal 98-108 [facility] Comment on above: Result Comment: Canc elled via OM: Order cancelled - Patient discharged Performed By: #### L 100.0100, L500.2500 ####[facility] [address] [place], [address] CO2 Normal 21.0-32.0 [facility] Comment on above: Result Comment: Canc elled via OM: Order cancelled - Patient discharged Performed By: #### L 100.0100, L500.2500 ####[facility] [address] [place], [address] CREAT,SERUM Normal 0.70-1.20 [facility] Comment on above: Result Comment: Canc elled via OM: Order cancelled - Patient discharged Performed By: #### L 100.0100, L500.2500 ####[facility] [address] [place], [address] eGFR Normal >60 [facility] Comment on above: Result Comment: Canc elled via OM: Order cancelled - Patient discharged Performed By: #### L 100.0100, L500.2500 ####[facility] [address] [place], [address] GAP Normal 5-15 [facility] Comment on above: Result Comment: Canc elled via OM: Order cancelled - Patient discharged Performed By: #### L 100.0100, L500.2500 ####[facility] [address] [place], [address] GLU Normal 70-99 [facility] Comment on above: Result Comment: Canc elled via OM: Order cancelled - Patient discharged Performed By: #### L 100.0100, L500.2500 ####[facility] [address] [place], [address] Potassium Normal 3.3-5.1 [facility] Comment on above: Result Comment: Canc elled via OM: Order cancelled - Patient discharged Performed By: #### L 100.0100, L500.2500 ####[facility] [address] [place], [address] Basic Metabolic Profile (BMP) Normal 133-145 [facility] Comment on above: Result Comment: Canc elled via OM: Order cancelled - Patient discharged Performed By: #### L 100.0100, L500.2500 ####[facility] [address] [place], [address] CBC W/Diff, Automatedon 05-0 Absolute Neut Normal 2.0-7.7 [facility] Comment on above: Result Comment: Canc elled via OM: Order cancelled - Patient discharged Performed By: #### L 100.0100, L500.2500 ####[facility] [address] [place], [address] HCT Normal 37-47 [facility] Comment on above: Result Comment: Canc elled via OM: Order cancelled - Patient discharged Performed By: #### L 100.0100, L500.2500 ####[facility] [address] [place], [address] HGB Normal 12.0-15.0 [facility] Comment on above: Result Comment: Canc elled via OM: Order cancelled - Patient discharged Performed By: #### L 100.0100, L500.2500 ####[facility] [address] [place], [address] MCH Normal 27.0-32.0 [facility] Comment on above: Result Comment: Canc elled via OM: Order cancelled - Patient discharged Performed By: #### L 100.0100, L500.2500 ####[facility] [address] [place], [address] MCHC Normal 32-36 [facility] Comment on above: Result Comment: Canc elled via OM: Order cancelled - Patient discharged Performed By: #### L 100.0100, L500.2500 ####[facility] [address] [place], [address] MCV Normal 81-99 [facility] Comment on above: Result Comment: Canc elled via OM: Order cancelled - Patient discharged Performed By: #### L 100.0100, L500.2500 ####[facility] [address] [place], [address] NEUT% Normal 47-70 [facility] Comment on above: Result Comment: Canc elled via OM: Order cancelled - Patient discharged Performed By: #### L 100.0100, L500.2500 ####[facility] [address] [place], [address] PLT Normal 150-450 [facility] Comment on above: Result Comment: Canc elled via OM: Order cancelled - Patient discharged Performed By: #### L 100.0100, L500.2500 ####[facility] [address] [place], [address] RBC Normal 4.2-5.4 [facility] Comment on above: Result Comment: Canc elled via OM: Order cancelled - Patient discharged Performed By: #### L 100.0100, L500.2500 ####[facility] [address] [place], [address] RDW CV Normal 11.6-14.6 [facility] Comment on above: Result Comment: Canc elled via OM: Order cancelled - Patient discharged Performed By: #### L 100.0100, L500.2500 ####[facility] [address] [place], [address] RDW SD Normal 35.1-43.9 [facility] Comment on above: Result Comment: Canc elled via OM: Order cancelled - Patient discharged Performed By: #### L 100.0100, L500.2500 ####[facility] [address] [place], [address] WBC Normal 4.4-11.0 [facility] Comment on above: Result Comment: Canc elled via OM: Order cancelled - Patient discharged Performed By: #### L 100.0100, L500.2500 ####[facility] [address] [place], [address] Basic Metabolic Profile (BMP )on 02-27-2025 BUN Normal 4-19 [facility] Comment on above: Result Comment: Canc elled via OM: Order cancelled - Patient discharged Performed By: #### L 500.2500, L100.0100 ####[facility] [address] [place], [address] BUN/CRE Normal 10-20 [facility] Comment on above: Result Comment: Canc elled via OM: Order cancelled - Patient discharged Performed By: #### L 500.2500, L100.0100 ####[facility] [address], [address] Calcium Normal 7.6-11.0 [facility] Comment on above: Result Comment: Canc elled via OM: Order cancelled - Patient discharged Performed By: #### L 500.2500, L100.0100 ####[facility] [address] [place], [address] CL Normal 98-108 [facility] Comment on above: Result Comment: Canc elled via OM: Order cancelled - Patient discharged Performed By: #### L 500.2500, L100.0100 ####[facility] [address] [place], [address] CO2 Normal 21.0-32.0 [facility] Comment on above: Result Comment: Canc elled via OM: Order cancelled - Patient discharged Performed By: #### L 500.2500, L100.0100 ####[facility] [address] [place], [address] CREAT,SERUM Normal 0.70-1.20 [facility] Comment on above: Result Comment: Canc elled via OM: Order cancelled - Patient discharged Performed By: #### L 500.2500, L100.0100 ####[facility] [address], [address] eGFR Normal >60 [facility] Comment on above: Result Comment: Canc elled via OM: Order cancelled - Patient discharged Performed By: #### L 500.2500, L100.0100 ####[facility] [address] [place], [address] GAP Normal 5-15 [facility] Comment on above: Result Comment: Canc elled via OM: Order cancelled - Patient discharged Performed By: #### L 500.2500, L100.0100 ####[facility] [address] [place], [address] GLU Normal 70-99 [facility] Comment on above: Result Comment: Canc elled via OM: Order cancelled - Patient discharged Performed By: #### L 500.2500, L100.0100 ####[facility] [address] [place], [address] Potassium Normal 3.3-5.1 [facility] Comment on above: Result Comment: Canc elled via OM: Order cancelled - Patient discharged Performed By: #### L 500.2500, L100.0100 ####[facility] [address] [place], [address] Basic Metabolic Profile (BMP) Normal 133-145 [facility] Comment on above: Result Comment: Canc elled via OM: Order cancelled - Patient discharged Performed By: #### L 500.2500, L100.0100 ####[facility] [address] [place], [address] CBC W/Diff, Automatedon 05-0 Absolute Neut Normal 2.0-7.7 [facility] Comment on above: Result Comment: Canc elled via OM: Order cancelled - Patient discharged Performed By: #### L 500.2500, L100.0100 ####[facility] [address] [place], [address] HCT Normal 37-47 [facility] Comment on above: Result Comment: Canc elled via OM: Order cancelled - Patient discharged Performed By: #### L 500.2500, L100.0100 ####[facility] [address] [place], [address] HGB Normal 12.0-15.0 [facility] Comment on above: Result Comment: Canc elled via OM: Order cancelled - Patient discharged Performed By: #### L 500.2500, L100.0100 ####[facility] [address] [place], [address] MCH Normal 27.0-32.0 [facility] Comment on above: Result Comment: Canc elled via OM: Order cancelled - Patient discharged Performed By: #### L 500.2500, L100.0100 ####[facility] [address] [place], [address] MCHC Normal 32-36 [facility] Comment on above: Result Comment: Canc elled via OM: Order cancelled - Patient discharged Performed By: #### L 500.2500, L100.0100 ####[facility] [address] [place], [address] MCV Normal 81-99 [facility] Comment on above: Result Comment: Canc elled via OM: Order cancelled - Patient discharged Performed By: #### L 500.2500, L100.0100 ####[facility] [address] [place], [address] NEUT% Normal 47-70 [facility] Comment on above: Result Comment: Canc elled via OM: Order cancelled - Patient discharged Performed By: #### L 500.2500, L100.0100 ####[facility] [address] [place], [address] PLT Normal 150-450 [facility] Comment on above: Result Comment: Canc elled via OM: Order cancelled - Patient discharged Performed By: #### L 500.2500, L100.0100 ####[facility] [address] [place], [address] RBC Normal 4.2-5.4 [facility] Comment on above: Result Comment: Canc elled via OM: Order cancelled - Patient discharged Performed By: #### L 500.2500, L100.0100 ####[facility] [address] [place], [address] RDW CV Normal 11.6-14.6 [facility] Comment on above: Result Comment: Canc elled via OM: Order cancelled - Patient discharged Performed By: #### L 500.2500, L100.0100 ####[facility] [address] [place], [address] RDW SD Normal 35.1-43.9 [facility] Comment on above: Result Comment: Canc elled via OM: Order cancelled - Patient discharged Performed By: #### L 500.2500, L100.0100 ####[facility] [address] [place], [address] WBC Normal 4.4-11.0 [facility] Comment on above: Result Comment: Canc elled via OM: Order cancelled - Patient discharged Performed By: #### L 500.2500, L100.0100 ####[facility] [address] [place], [address] Basic Metabolic Profile (BMP )on 02-26-2025 BUN Normal 4-19 [facility] Comment on above: Result Comment: Canc elled via OM: Order cancelled - Patient discharged Performed By: #### L 500.2500, L100.0100 ####[facility] [address] [place], [address] BUN/CRE Normal 10-20 [facility] Comment on above: Result Comment: Canc elled via OM: Order cancelled - Patient discharged Performed By: #### L 500.2500, L100.0100 ####[facility] [address] [place], [address] Calcium Normal 7.6-11.0 [facility] Comment on above: Result Comment: Canc elled via OM: Order cancelled - Patient discharged Performed By: #### L 500.2500, L100.0100 ####[facility] [address] [place], [address] CL Normal 98-108 [facility] Comment on above: Result Comment: Canc elled via OM: Order cancelled - Patient discharged Performed By: #### L 500.2500, L100.0100 ####[facility] [address] [place], [address] CO2 Normal 21.0-32.0 [facility] Comment on above: Result Comment: Canc elled via OM: Order cancelled - Patient discharged Performed By: #### L 500.2500, L100.0100 ####[facility] [address] [place], [address] CREAT,SERUM Normal 0.70-1.20 [facility] Comment on above: Result Comment: Canc elled via OM: Order cancelled - Patient discharged Performed By: #### L 500.2500, L100.0100 ####[facility] [address] [place], [address] eGFR Normal >60 [facility] Comment on above: Result Comment: Canc elled via OM: Order cancelled - Patient discharged Performed By: #### L 500.2500, L100.0100 ####[facility] [address] [place], [address] GAP Normal 5-15 [facility] Comment on above: Result Comment: Canc elled via OM: Order cancelled - Patient discharged Performed By: #### L 500.2500, L100.0100 ####[facility] [address] [place], [address] GLU Normal 70-99 [facility] Comment on above: Result Comment: Canc elled via OM: Order cancelled - Patient discharged Performed By: #### L 500.2500, L100.0100 ####[facility] [address] [place], [address] Potassium Normal 3.3-5.1 [facility] Comment on above: Result Comment: Canc elled via OM: Order cancelled - Patient discharged Performed By: #### L 500.2500, L100.0100 ####[facility] [address] [place], [address] Basic Metabolic Profile (BMP) Normal 133-145 [facility] Comment on above: Result Comment: Canc elled via OM: Order cancelled - Patient discharged Performed By: #### L 500.2500, L100.0100 ####[facility] [address] [place], [address] CBC W/Diff, Automatedon 05-0 -2024 Absolute Neut Normal 2.0-7.7 [facility] Comment on above: Result Comment: Canc elled via OM: Order cancelled - Patient discharged Performed By: #### L 500.2500, L100.0100 ####[facility] [address] [place], [address] HCT Normal 37-47 [facility] Comment on above: Result Comment: Canc elled via OM: Order cancelled - Patient discharged Performed By: #### L 500.2500, L100.0100 ####[facility] [address] [place], [address] HGB Normal 12.0-15.0 [facility] Comment on above: Result Comment: Canc elled via OM: Order cancelled - Patient discharged Performed By: #### L 500.2500, L100.0100 ####[facility] [address] [place], [address] MCH Normal 27.0-32.0 [facility] Comment on above: Result Comment: Canc elled via OM: Order cancelled - Patient discharged Performed By: #### L 500.2500, L100.0100 ####[facility] [address] [place], [address] MCHC Normal 32-36 [facility] Comment on above: Result Comment: Canc elled via OM: Order cancelled - Patient discharged Performed By: #### L 500.2500, L100.0100 ####[facility] [address] [place], [address] MCV Normal 81-99 [facility] Comment on above: Result Comment: Canc elled via OM: Order cancelled - Patient discharged Performed By: #### L 500.2500, L100.0100 ####[facility] [address] [place], [address] NEUT% Normal 47-70 [facility] Comment on above: Result Comment: Canc elled via OM: Order cancelled - Patient discharged Performed By: #### L 500.2500, L100.0100 ####[facility] [address] [place], [address] PLT Normal 150-450 [facility] Comment on above: Result Comment: Canc elled via OM: Order cancelled - Patient discharged Performed By: #### L 500.2500, L100.0100 ####[facility] [address] [place], [address] RBC Normal 4.2-5.4 [facility] Comment on above: Result Comment: Canc elled via OM: Order cancelled - Patient discharged Performed By: #### L 500.2500, L100.0100 ####[facility] [address] [place], [address] RDW CV Normal 11.6-14.6 [facility] Comment on above: Result Comment: Canc elled via OM: Order cancelled - Patient discharged Performed By: #### L 500.2500, L100.0100 ####[facility] [address] [place], [address] RDW SD Normal 35.1-43.9 [facility] Comment on above: Result Comment: Canc elled via OM: Order cancelled - Patient discharged Performed By: #### L 500.2500, L100.0100 ####[facility] [address] [place], [address] WBC Normal 4.4-11.0 [facility] Comment on above: Result Comment: Canc elled via OM: Order cancelled - Patient discharged Performed By: #### L 500.2500, L100.0100 ####[facility] [address] [place], [address] Basic Metabolic Profile (BMP )on 02-25-2025 BUN Normal 4-19 [facility] Comment on above: Result Comment: Canc elled via OM: Order cancelled - Patient discharged Performed By: #### L 100.0100, L500.2500 ####[facility] [address] [place], [address] BUN/CRE Normal 10-20 [facility] Comment on above: Result Comment: Canc elled via OM: Order cancelled - Patient discharged Performed By: #### L 100.0100, L500.2500 ####[facility] [address] [place], [address] Calcium Normal 7.6-11.0 [facility] Comment on above: Result Comment: Canc elled via OM: Order cancelled - Patient discharged Performed By: #### L 100.0100, L500.2500 ####[facility] [address] [place], [address] CL Normal 98-108 [facility] Comment on above: Result Comment: Canc elled via OM: Order cancelled - Patient discharged Performed By: #### L 100.0100, L500.2500 ####[facility] [address] [place], [address] CO2 Normal 21.0-32.0 [facility] Comment on above: Result Comment: Canc elled via OM: Order cancelled - Patient discharged Performed By: #### L 100.0100, L500.2500 ####[facility] [address] [place], [address] CREAT,SERUM Normal 0.70-1.20 [facility] Comment on above: Result Comment: Canc elled via OM: Order cancelled - Patient discharged Performed By: #### L 100.0100, L500.2500 ####[facility] [address] [place], [address] eGFR Normal >60 [facility] Comment on above: Result Comment: Canc elled via OM: Order cancelled - Patient discharged Performed By: #### L 100.0100, L500.2500 ####[facility] [address] [place], [address] GAP Normal 5-15 [facility] Comment on above: Result Comment: Canc elled via OM: Order cancelled - Patient discharged Performed By: #### L 100.0100, L500.2500 ####[facility] [address] [place], [address] GLU Normal 70-99 [facility] Comment on above: Result Comment: Canc elled via OM: Order cancelled - Patient discharged Performed By: #### L 100.0100, L500.2500 ####[facility] [address] [place], [address] Potassium Normal 3.3-5.1 [facility] Comment on above: Result Comment: Canc elled via OM: Order cancelled - Patient discharged Performed By: #### L 100.0100, L500.2500 ####[facility] [address] [place], [address] Basic Metabolic Profile (BMP) Normal 133-145 [facility] Comment on above: Result Comment: Canc elled via OM: Order cancelled - Patient discharged Performed By: #### L 100.0100, L500.2500 ####[facility] [address] [place], [address] CBC W/Diff, Automatedon 05-0 Absolute Neut Normal 2.0-7.7 [facility] Comment on above: Result Comment: Canc elled via OM: Order cancelled - Patient discharged Performed By: #### L 100.0100, L500.2500 ####[facility] [address] [place], [address] HCT Normal 37-47 [facility] Comment on above: Result Comment: Canc elled via OM: Order cancelled - Patient discharged Performed By: #### L 100.0100, L500.2500 ####[facility] [address] [place], [address] HGB Normal 12.0-15.0 [facility] Comment on above: Result Comment: Canc elled via OM: Order cancelled - Patient discharged Performed By: #### L 100.0100, L500.2500 ####[facility] [address] [place], [address] MCH Normal 27.0-32.0 [facility] Comment on above: Result Comment: Canc elled via OM: Order cancelled - Patient discharged Performed By: #### L 100.0100, L500.2500 ####[facility] [address] [place], [address] MCHC Normal 32-36 [facility] Comment on above: Result Comment: Canc elled via OM: Order cancelled - Patient discharged Performed By: #### L 100.0100, L500.2500 ####[facility] [address] [place], [address] MCV Normal 81-99 [facility] Comment on above: Result Comment: Canc elled via OM: Order cancelled - Patient discharged Performed By: #### L 100.0100, L500.2500 ####[facility] [address] [place], [address] NEUT% Normal 47-70 [facility] Comment on above: Result Comment: Canc elled via OM: Order cancelled - Patient discharged Performed By: #### L 100.0100, L500.2500 ####[facility] [address] [place], [address] PLT Normal 150-450 [facility] Comment on above: Result Comment: Canc elled via OM: Order cancelled - Patient discharged Performed By: #### L 100.0100, L500.2500 ####[facility] [address] [place], [address] RBC Normal 4.2-5.4 [facility] Comment on above: Result Comment: Canc elled via OM: Order cancelled - Patient discharged Performed By: #### L 100.0100, L500.2500 ####[facility] [address] [place], [address] RDW CV Normal 11.6-14.6 [facility] Comment on above: Result Comment: Canc elled via OM: Order cancelled - Patient discharged Performed By: #### L 100.0100, L500.2500 ####[facility] [address] [place], [address] RDW SD Normal 35.1-43.9 [facility] Comment on above: Result Comment: Canc elled via OM: Order cancelled - Patient discharged Performed By: #### L 100.0100, L500.2500 ####[facility] [address] [place], [address] WBC Normal 4.4-11.0 [facility] Comment on above: Result Comment: Canc elled via OM: Order cancelled - Patient discharged Performed By: #### L 100.0100, L500.2500 ####[facility] [address] [place], [address] Basic Metabolic Profile (BMP )on 02-24-2025 BUN Normal 4-19 [facility] Comment on above: Result Comment: Canc elled via OM: Order cancelled - Patient discharged Performed By: #### L 100.0100, L500.2500 ####[facility] [address] [place], [address] BUN/CRE Normal 10-20 [facility] Comment on above: Result Comment: Canc elled via OM: Order cancelled - Patient discharged Performed By: #### L 100.0100, L500.2500 ####[facility] [address] [place], [address] Calcium Normal 7.6-11.0 [facility] Comment on above: Result Comment: Canc elled via OM: Order cancelled - Patient discharged Performed By: #### L 100.0100, L500.2500 ####[facility] [address] [place], [address] CL Normal 98-108 [facility] Comment on above: Result Comment: Canc elled via OM: Order cancelled - Patient discharged Performed By: #### L 100.0100, L500.2500 ####[facility] [address] [place], [address] CO2 Normal 21.0-32.0 [facility] Comment on above: Result Comment: Canc elled via OM: Order cancelled - Patient discharged Performed By: #### L 100.0100, L500.2500 ####[facility] [address] [place], [address] CREAT,SERUM Normal 0.70-1.20 [facility] Comment on above: Result Comment: Canc elled via OM: Order cancelled - Patient discharged Performed By: #### L 100.0100, L500.2500 ####[facility] [address] [place], [address] eGFR Normal >60 [facility] Comment on above: Result Comment: Canc elled via OM: Order cancelled - Patient discharged Performed By: #### L 100.0100, L500.2500 ####[facility] [address] [place], [address] GAP Normal 5-15 [facility] Comment on above: Result Comment: Canc elled via OM: Order cancelled - Patient discharged Performed By: #### L 100.0100, L500.2500 ####[facility] [address] [place], [address] GLU Normal 70-99 [facility] Comment on above: Result Comment: Canc elled via OM: Order cancelled - Patient discharged Performed By: #### L 100.0100, L500.2500 ####[facility] [address] [place], [address] Potassium Normal 3.3-5.1 [facility] Comment on above: Result Comment: Canc elled via OM: Order cancelled - Patient discharged Performed By: #### L 100.0100, L500.2500 ####[facility] [address] [place], [address] Basic Metabolic Profile (BMP) Normal 133-145 [facility] Comment on above: Result Comment: Canc elled via OM: Order cancelled - Patient discharged Performed By: #### L 100.0100, L500.2500 ####[facility] [address] [place], [address] CBC W/Diff, Automatedon 04-3 -2024 Absolute Neut Normal 2.0-7.7 [facility] Comment on above: Result Comment: Canc elled via OM: Order cancelled - Patient discharged Performed By: #### L 100.0100, L500.2500 ####[facility] [address] [place], [address] HCT Normal 37-47 [facility] Comment on above: Result Comment: Canc elled via OM: Order cancelled - Patient discharged Performed By: #### L 100.0100, L500.2500 ####[facility] [address] [place], [address] HGB Normal 12.0-15.0 [facility] Comment on above: Result Comment: Canc elled via OM: Order cancelled - Patient discharged Performed By: #### L 100.0100, L500.2500 ####[facility] [address] [place], [address] MCH Normal 27.0-32.0 [facility] Comment on above: Result Comment: Canc elled via OM: Order cancelled - Patient discharged Performed By: #### L 100.0100, L500.2500 ####[facility] [address] [place], [address] MCHC Normal 32-36 [facility] Comment on above: Result Comment: Canc elled via OM: Order cancelled - Patient discharged Performed By: #### L 100.0100, L500.2500 ####[facility] [address] [place], [address] MCV Normal 81-99 [facility] Comment on above: Result Comment: Canc elled via OM: Order cancelled - Patient discharged Performed By: #### L 100.0100, L500.2500 ####[facility] [address] [place], [address] NEUT% Normal 47-70 [facility] Comment on above: Result Comment: Canc elled via OM: Order cancelled - Patient discharged Performed By: #### L 100.0100, L500.2500 ####[facility] [address] [place], [address] PLT Normal 150-450 [facility] Comment on above: Result Comment: Canc elled via OM: Order cancelled - Patient discharged Performed By: #### L 100.0100, L500.2500 ####[facility] [address] [place], [address] RBC Normal 4.2-5.4 [facility] Comment on above: Result Comment: Canc elled via OM: Order cancelled - Patient discharged Performed By: #### L 100.0100, L500.2500 ####[facility] [address] [place], [address] RDW CV Normal 11.6-14.6 [facility] Comment on above: Result Comment: Canc elled via OM: Order cancelled - Patient discharged Performed By: #### L 100.0100, L500.2500 ####[facility] [address] [place], [address] RDW SD Normal 35.1-43.9 [facility] Comment on above: Result Comment: Canc elled via OM: Order cancelled - Patient discharged Performed By: #### L 100.0100, L500.2500 ####[facility] [address] [place], [address] WBC Normal 4.4-11.0 [facility] Comment on above: Result Comment: Canc elled via OM: Order cancelled - Patient discharged Performed By: #### L 100.0100, L500.2500 ####[facility] [address] [place], [address] Culture, Blood (WB)on 2024 CUB Blood cultures x2, f rom two different sites No growth in 5 days. Normal [facility] Comment on above: Performed By: #### L 100.0100, L300.4310, L503.6005, L300.3900, L500.4050, M200.1000 ####[facility] [address] [place], [address] Absolute lymphocyte countOrd ered By: Yee Kumaryajaira on 02-23-2025 Lymphocytes Auto (Unsp spec) [#/Vol] 0.85 10*3/uL 0.83-4.51 [facility] Absolute neutrophil countOrd ered By: Yee Kumaryajaira on 02-23-2025 Neutrophils (Bld) [#/Vol] 5.9 10*3/uL 2.0-7.7 [facility] Anion gap in Serum or Plasma Ordered By: Yeecarlee Jones on 02-23-2025 Anion gap [Moles/Vol] 9 mmol/L 5-15 [facility] Automated lymphocyte count a s percentage of total leukocytesOrdered By: Yee Joséyajaira on 02-23-2025 Lymphocytes/100 WBC Auto (Unsp spec) 11.2 % Low 19-41 [facility] BUN/creatinine ratioOrdered By: Yeecarlee Jones on 02-23-2025 Urea nitrogen/Creatinine [Mass ratio] 31.6 mg/mg High 10-20 [facility] Basic Metabolic Profile (BMP )on 02-23-2025 BUN/CRE 31.6 RATIO High 10-20 [facility] Comment on above: Performed By: #### L 500.2500, L100.0100 ####[facility] [address] [place], [address] Calcium [Mass/Vol] 9.4 mg/dL Normal 7.6-11.0 [facility] Comment on above: Performed By: #### L 500.2500, L100.0100 ####[facility] [address] [place], [address] Chloride [Moles/Vol] 96 mmol/L Low 98-108 [facility] Comment on above: Performed By: #### L 500.2500, L100.0100 ####[facility] [address] [place], [address] CO2 [Moles/Vol] 40.2 mmol/L High 21.0-32.0 [facility] Comment on above: Performed By: #### L 500.2500, L100.0100 ####[facility] [address] [place], [address] Creatinine [Mass/Vol] 0.62 mg/dL Low 0.70-1.20 [facility] Comment on above: Performed By: #### L 500.2500, L100.0100 ####[facility] [address] [place], [address] ECRCL 86.12 ml/min Normal 50-250 [facility] Comment on above: Performed By: #### L 500.2500, L100.0100 ####[facility] [address] [place], [address] GAP 9 Normal 5-15 [facility] Comment on above: Performed By: #### L 500.2500, L100.0100 ####[facility] [address] [place], [address] GFR/1.73 sq M.predicted among non-blacks MDRD (S/P/Bld) [Vol rate/Area] 97 mL/min/{1.73_m2} Normal >60 [facility] Comment on above: Result Comment: mL/m in/1.73m2 CKD-EPI Creatinine Equation (2020) Performed By: #### L 500.2500, L100.0100 ####[facility] [address] [place], [address] Glucose [Mass/Vol] 114 mg/dL High 70-99 [facility] Comment on above: Performed By: #### L 500.2500, L100.0100 ####[facility] [address] [place], [address] Potassium [Moles/Vol] 3.3 mmol/L Normal 3.3-5.1 [facility] Comment on above: Performed By: #### L 500.2500, L100.0100 ####[facility] [address] [place], [address] Sodium [Moles/Vol] 145 mmol/L Normal 133-145 [facility] Comment on above: Performed By: #### L 500.2500, L100.0100 ####[facility] [address] [place], [address] Urea nitrogen [Mass/Vol] 20 mg/dL High 4-19 [facility] Comment on above: Performed By: #### L 500.2500, L100.0100 ####[facility] [address] [place], [address] Basophil percentageOrdered B y: Yee Jones on 02-23-2025 Basophils/100 WBC (Bld) 0.7 % 0-1 [facility] CBC W/Diff, Automatedon 01-27 Absolute Lymph 0.85 X10 3/uL Normal 0.83-4.51 [facility] Comment on above: Performed By: #### L 500.2500, L100.0100 ####[facility] [address] [place], [address] Absolute Neut 5.9 X10 3/uL Normal 2.0-7.7 [facility] Comment on above: Performed By: #### L 500.2500, L100.0100 ####[facility] [address] [place], [address] Basophils/100 WBC (Bld) 0.7 % Normal 0-1 [facility] Comment on above: Performed By: #### L 500.2500, L100.0100 ####[facility] [address] [place], [address] Eosinophils/100 WBC (Bld) 1.7 % Normal 0-5 [facility] Comment on above: Performed By: #### L 500.2500, L100.0100 ####[facility] [address] [place], [address] Erythrocyte distribution width (RBC) [Ratio] 14.3 % Normal 11.6-14.6 [facility] Comment on above: Performed By: #### L 500.2500, L100.0100 ####[facility] [address] [place], [address] Hematocrit (Bld) [Volume fraction] 45.7 % Normal 37-47 [facility] Comment on above: Performed By: #### L 500.2500, L100.0100 ####[facility] [address] [place], [address] Hemoglobin (Bld) [Mass/Vol] 14.1 g/dL Normal 12.0-15.0 [facility] Comment on above: Performed By: #### L 500.2500, L100.0100 ####[facility] [address] [place], [address] IG% 0.400 Normal 0.0-0.9 [facility] Comment on above: Result Comment: IG% - Immature Granulocytes (promyelocytes, myelocytes andmetamyelocytes) > 1% indicates that a LEFT SHIFT is Present. Performed By: #### L 500.2500, L100.0100 ####[facility] [address] [place], [address] Lymphocytes/100 WBC (Bld) 11.2 % Low 19-41 [facility] Comment on above: Performed By: #### L 500.2500, L100.0100 ####[facility] [address] [place], [address] MCH (RBC) [Entitic mass] 30.9 pg Normal 27.0-32.0 [facility] Comment on above: Performed By: #### L 500.2500, L100.0100 ####[facility] [address] [place], [address] MCHC (RBC) [Mass/Vol] 30.9 g/dL Low 32-36 [facility] Comment on above: Performed By: #### L 500.2500, L100.0100 ####[facility] [address] [place], [address] MCV (RBC) [Entitic vol] 100.2 fL High 81-99 [facility] Comment on above: Performed By: #### L 500.2500, L100.0100 ####[facility] [address] [place], [address] Monocytes/100 WBC (Bld) 7.9 % Normal 0-10 [facility] Comment on above: Performed By: #### L 500.2500, L100.0100 ####[facility] [address] [place], [address] Neutrophils/100 WBC (Bld) 78.1 % High 47-70 [facility] Comment on above: Performed By: #### L 500.2500, L100.0100 ####[facility] [address] [place], [address] Nucleated RBC (Bld) [#/Vol] 0 10*3/uL Normal 0-5 [facility] Comment on above: Performed By: #### L 500.2500, L100.0100 ####[facility] [address] [place], [address] Platelet mean volume (Bld) [Entitic vol] 10.7 fL Normal 6.2-12.0 [facility] Comment on above: Performed By: #### L 500.2500, L100.0100 ####[facility] [address] [place], [address] Platelets (Bld) [#/Vol] 217 10*3/uL Normal 150-450 [facility] Comment on above: Performed By: #### L 500.2500, L100.0100 ####[facility] [address] [place], [address] RBC (Bld) [#/Vol] 4.56 10*6/uL Normal 4.2-5.[address] [facility] Comment on above: Performed By: #### L 500.2500, L100.0100 ####[facility] [address] [place], [address] RDW SD 53.5 fl High 35.1-43.9 [facility] Comment on above: Performed By: #### L 500.2500, L100.0100 ####[facility] [address] [place], [address] WBC (Bld) [#/Vol] 7.6 10*3/uL Normal 4.4-11.0 [facility] Comment on above: Performed By: #### L 500.2500, L100.0100 ####[facility] [address] [place], [address] Carbon dioxide, total [Moles /volume] in Central venous bloodOrdered By: Yee Jones on 02-23-2025 CO2 [Moles/Vol] 40.2 mmol/L High 21.0-32.0 [facility] Chloride assayOrdered By: Na lawanda Jones on 02-23-2025 Chloride [Moles/Vol] 96 mmol/L Low 98-108 [facility] Discharge Instructionon 042 Discharge Instruction Normal [facility] Eosinophil percentageOrdered By: Yee Jones on 02-23-2025 Eosinophils/100 WBC (Bld) 1.7 % 0-5 [facility] Erythrocyte distribution wid th (RBC) [Ratio]Ordered By: Yee Jones on 02-23-2025 Erythrocyte distribution width (RBC) [Entitic vol] 53.5 fL High 35.1-43.9 [facility] Erythrocyte distribution wid th ratioOrdered By: Yee Jones on 02-23-2025 Erythrocyte distribution width (RBC) [Ratio] 14.3 % 11.6-14.6 [facility] Erythrocyte distribution wid th standard deviationOrdered By: Yee Jones on 02-23-2025 Erythrocyte distribution width (RBC) [Ratio] 53.5 fl High 35.1-43.9 [facility] Estimation of creatinine dilan aranceOrdered By: Yee Jones on 02-23-2025 Estimated Creatinine Clearance Calc 86.12 ml/min 50-250 [facility] GFR/1.73 sq M.predicted rosalba g non-blacks MDRD (S/P/Bld) [Vol rate/Area]Ordered By: Yee Jones on 02-23-2025 Estimated GFR (MDRD) Non-Af Amer 97 >60 [facility] Comment on above: mL/min/1.73m2 CKD-EP I Creatinine Equation (2020) Glomerular filtration rate ( GFR) estimation/1.73 sq m using serum, plasma, or whole bOrdered By: Yee Jones on 02-23-2025 GFR/1.73 sq M.predicted among non-blacks MDRD (S/P/Bld) [Vol rate/Area] 97 mL/min/{1.73_m2} >60 [facility] Comment on above: mL/min/1.73m2 CKD-EP I Creatinine Equation (2020) Hematocrit Auto (Bld) [Volum e fraction]Ordered By: Yee Jones 02-23-2025 Hematocrit (Bld) [Volume fraction] 45.7 % 37-47 [facility] Hemoglobin measurementOrdere d By: Yee Jones on 02-23-2025 Hemoglobin (Bld) [Mass/Vol] 14.1 g/dL 12.0-15.0 [facility] Immature granulocytes/100 WB C Auto (Bld)Ordered By: Yee Jones on 02-23-2025 Immature granulocytes/100 WBC (Bld) 0.400 % 0.0-0.9 [facility] Comment on above: IG% - Immature Granu locytes (promyelocytes, myelocytes and metamyelocytes) > 1% indicates that a LEFT SHIFT is Present. Lymphocytes Auto (Unsp spec) [#/Vol]Ordered By: Yee Jones on 02-23-2025 Lymphocytes (Bld) [#/Vol] 0.85 10*3/uL 0.83-4.51 [facility] Lymphocytes/100 WBC Auto (Un sp spec)Ordered By: Yee Jones on 02-23-2025 Lymphocytes/100 WBC (Bld) 11.2 % Low 19-41 [facility] MCV (mean corpuscular volume ) determinationOrdered By: Yee Jones on 02-23-2025 MCV (RBC) [Entitic vol] 100.2 fL High 81-99 [facility] Mean corpuscular hemoglobin (MCH) determinationOrdered By: Yee Jones on 02-23-2025 MCH (RBC) [Entitic mass] 30.9 pg 27.0-32.0 [facility] Mean corpuscular hemoglobin concentration (MCHC) determinationOrdered By: Yee Jones on 02-23-2025 MCHC (RBC) [Mass/Vol] 30.9 g/dL Low 32-36 [facility] Mean platelet volume determi nationOrdered By: Yee Jones on 02-23-2025 Platelet mean volume (Bld) [Entitic vol] 10.7 fL 6.2-12.0 [facility] Monocyte percentageOrdered B y: Yee Jones on 02-23-2025 Monocytes/100 WBC (Bld) 7.9 % 0-10 [facility] Neutrophil percentageOrdered By: Yee Jones on 02-23-2025 Neutrophils/100 WBC (Bld) 78.1 % High 47-70 [facility] Nucleated red blood cell per centageOrdered By: Yee Jones on 02-23-2025 Nucleated RBC/100 WBC (Bld) [Ratio] 0 % 0-5 [facility] Platelet countOrdered By: Na lawanda Jones on 02-23-2025 Platelets (Bld) [#/Vol] 217 10*3/uL 150-450 [facility] Potassium (Unsp spec) [Mass/ Vol]Ordered By: Yee Jones on 02-23-2025 Potassium [Moles/Vol] 3.3 mmol/L 3.3-5.1 [facility] Potassium measurement (mass/ volume)Ordered By: Yee Jones on 02-23-2025 Potassium (Unsp spec) [Mass/Vol] 3.3 mmol/L 3.3-5.1 [facility] RBC Auto (Bld) [#/Vol]Ordere d By: Yee Jones on 02-23-2025 RBC (Bld) [#/Vol] 4.56 10*6/uL 4.2-5.[address] [facility] Serum creatinine measurement (mass/volume)Ordered By: Yee Jones on 02-23-2025 Creatinine [Mass/Vol] 0.62 mg/dL Low 0.70-1.20 [facility] Serum glucose measurement (m ass/volume)Ordered By: Yee Jones on 02-23-2025 Glucose [Mass/Vol] 114 mg/dL High 70-99 [facility] Serum or plasma calcium tad urement (mass/volume)Ordered By: Yeecarlee Jones on 02-23-2025 Calcium [Mass/Vol] 9.4 mg/dL 7.6-11.0 [facility] Serum or plasma urea nitroge n measurement (mass/volume)Ordered By: Yee Jones on 02-23-2025 Urea nitrogen [Mass/Vol] 20 mg/dL High 4-19 [facility] Sodium levelOrdered By: Yee Jones on 02-23-2025 Sodium [Moles/Vol] 145 mmol/L 133-145 [facility] White blood cell (WBC) count Ordered By: Yeecarlee Jones on 02-23-2025 WBC (Bld) [#/Vol] 7.6 10*3/uL 4.4-11.0 [facility] Basic Metabolic Profile (BMP )on 02-22-2025 BUN/CRE 36.2 RATIO High 10-20 [facility] Comment on above: Performed By: #### L 100.0500, L500.2500, L501.2300, L501.5200 ####[facility] [address] [place], [address] Calcium [Mass/Vol] 9.4 mg/dL Normal 7.6-11.0 [facility] Comment on above: Performed By: #### L 100.0500, L500.2500, L501.2300, L501.5200 ####[facility] [address] [place], [address] Chloride [Moles/Vol] 96 mmol/L Low 98-108 [facility] Comment on above: Performed By: #### L 100.0500, L500.2500, L501.2300, L501.5200 ####[facility] [address] [place], [address] CO2 [Moles/Vol] 36.4 mmol/L High 21.0-32.0 [facility] Comment on above: Performed By: #### L 100.0500, L500.2500, L501.2300, L501.5200 ####[facility] [address] [place], [address] Creatinine [Mass/Vol] 0.60 mg/dL Low 0.70-1.20 [facility] Comment on above: Performed By: #### L 100.0500, L500.2500, L501.2300, L501.5200 ####[facility] [address] [place], [address] ECRCL 86.29 ml/min Normal 50-250 [facility] Comment on above: Performed By: #### L 100.0500, L500.2500, L501.2300, L501.5200 ####[facility] [address] [place], [address] GAP 11 Normal 5-15 [facility] Comment on above: Performed By: #### L 100.0500, L500.2500, L501.2300, L501.5200 ####[facility] [address] [place], [address] GFR/1.73 sq M.predicted among non-blacks MDRD (S/P/Bld) [Vol rate/Area] 98 mL/min/{1.73_m2} Normal >60 [facility] Comment on above: Result Comment: mL/m in/1.73m2 CKD-EPI Creatinine Equation (2020) Performed By: #### L 100.0500, L500.2500, L501.2300, L501.5200 ####[facility] [address] [place], [address] Glucose [Mass/Vol] 115 mg/dL High 70-99 [facility] Comment on above: Performed By: #### L 100.0500, L500.2500, L501.2300, L501.5200 ####[facility] [address] [place], [address] Potassium [Moles/Vol] 3.5 mmol/L Normal 3.3-5.1 [facility] Comment on above: Performed By: #### L 100.0500, L500.2500, L501.2300, L501.5200 ####[facility] [address] [place], [address] Sodium [Moles/Vol] 144 mmol/L Normal 133-145 [facility] Comment on above: Performed By: #### L 100.0500, L500.2500, L501.2300, L501.5200 ####[facility] [address] [place], [address] Urea nitrogen [Mass/Vol] 22 mg/dL High 4-19 [facility] Comment on above: Performed By: #### L 100.0500, L500.2500, L501.2300, L501.5200 ####[facility] [address] [place], [address] CBC-Complete Blood Cnt No Di ffon 02-22-2025 Erythrocyte distribution width (RBC) [Ratio] 14.5 % Normal 11.6-14.6 [facility] Comment on above: Performed By: #### L 100.0500, L500.2500, L501.2300, L501.5200 ####[facility] [address] [place], [address] Hematocrit (Bld) [Volume fraction] 42.6 % Normal 37-47 [facility] Comment on above: Performed By: #### L 100.0500, L500.2500, L501.2300, L501.5200 ####[facility] [address] [place], [address] Hemoglobin (Bld) [Mass/Vol] 13.2 g/dL Normal 12.0-15.0 [facility] Comment on above: Performed By: #### L 100.0500, L500.2500, L501.2300, L501.5200 ####[facility] [address] [place], [address] MCH (RBC) [Entitic mass] 31.4 pg Normal 27.0-32.0 [facility] Comment on above: Performed By: #### L 100.0500, L500.2500, L501.2300, L501.5200 ####[facility] [address] [place], [address] MCHC (RBC) [Mass/Vol] 31.0 g/dL Low 32-36 [facility] Comment on above: Performed By: #### L 100.0500, L500.2500, L501.2300, L501.5200 ####[facility] [address] [place], [address] MCV (RBC) [Entitic vol] 101.2 fL High 81-99 [facility] Comment on above: Performed By: #### L 100.0500, L500.2500, L501.2300, L501.5200 ####[facility] [address] [place], [address] Platelet mean volume (Bld) [Entitic vol] 11.3 fL Normal 6.2-12.0 [facility] Comment on above: Performed By: #### L 100.0500, L500.2500, L501.2300, L501.5200 ####[facility] [address] [place], [address] Platelets (Bld) [#/Vol] 189 10*3/uL Normal 150-450 [facility] Comment on above: Performed By: #### L 100.0500, L500.2500, L501.2300, L501.5200 ####[facility] [address] [place], [address] RBC (Bld) [#/Vol] 4.21 10*6/uL Normal 4.2-5.[address] [facility] Comment on above: Performed By: #### L 100.0500, L500.2500, L501.2300, L501.5200 ####[facility] [address] [place], [address] RDW SD 54.4 fl High 35.1-43.9 [facility] Comment on above: Performed By: #### L 100.0500, L500.2500, L501.2300, L501.5200 ####[facility] [address] [place], [address] WBC (Bld) [#/Vol] 8.1 10*3/uL Normal 4.4-11.0 [facility] Comment on above: Performed By: #### L 100.0500, L500.2500, L501.2300, L501.5200 ####[facility] [address] [place], [address] Magnesiumon 02-22-2025 Magnesium [Mass/Vol] 2.2 mg/dL Normal 1.5-2.2 [facility] Comment on above: Performed By: #### L 100.0500, L500.2500, L501.2300, L501.5200 ####[facility] [address] [place], [address] Magnesium (Unsp spec) [Mass/ Vol]Ordered By: Claudia Valerio on 02-22-2025 Magnesium [Mass/Vol] 2.2 mg/dL 1.5-2.2 [facility] Magnesium measurement (mass/ volume)Ordered By: Claudia Valerio on 02-22-2025 Magnesium (Unsp spec) [Mass/Vol] 2.2 mg/dL 1.5-2.2 [facility] Phosphoruson 02-22-2025 Phosphate [Mass/Vol] 4.9 mg/dL High 2.7-4.5 [facility] Comment on above: Performed By: #### L 100.0500, L500.2500, L501.2300, L501.5200 ####[facility] [address] [place], [address] Serum phosphorus measurement Ordered By: Claudia Valerio on 02-22-2025 Phosphorus Level 4.9 mg/dL High 2.7-4.5 [facility] Basic Metabolic Profile (BMP )on 02-21-2025 BUN/CRE 40.7 RATIO High 10-20 [facility] Comment on above: Performed By: #### L 500.2500, L100.0500, L501.2300, L501.5200 ####[facility] [address] [place], [address] Calcium [Mass/Vol] 8.9 mg/dL Normal 7.6-11.0 [facility] Comment on above: Performed By: #### L 500.2500, L100.0500, L501.2300, L501.5200 ####[facility] [address] [place], [address] Chloride [Moles/Vol] 96 mmol/L Low 98-108 [facility] Comment on above: Performed By: #### L 500.2500, L100.0500, L501.2300, L501.5200 ####[facility] [address] [place], [address] CO2 [Moles/Vol] 39.0 mmol/L High 21.0-32.0 [facility] Comment on above: Performed By: #### L 500.2500, L100.0500, L501.2300, L501.5200 ####[facility] [address] [place], [address] Creatinine [Mass/Vol] 0.54 mg/dL Low 0.70-1.20 [facility] Comment on above: Performed By: #### L 500.2500, L100.0500, L501.2300, L501.5200 ####[facility] [address] [place], [address] ECRCL 85.99 ml/min Normal 50-250 [facility] Comment on above: Performed By: #### L 500.2500, L100.0500, L501.2300, L501.5200 ####[facility] [address] [place], [address] GAP 9 Normal 5-15 [facility] Comment on above: Performed By: #### L 500.2500, L100.0500, L501.2300, L501.5200 ####[facility] [address] [place], [address] GFR/1.73 sq M.predicted among non-blacks MDRD (S/P/Bld) [Vol rate/Area] 101 mL/min/{1.73_m2} Normal >60 [facility] Comment on above: Result Comment: mL/m in/1.73m2 CKD-EPI Creatinine Equation (2020) Performed By: #### L 500.2500, L100.0500, L501.2300, L501.5200 ####[facility] [address] [place], [address] Glucose [Mass/Vol] 119 mg/dL High 70-99 [facility] Comment on above: Performed By: #### L 500.2500, L100.0500, L501.2300, L501.5200 ####[facility] [address] [place], [address] Potassium [Moles/Vol] 3.3 mmol/L Normal 3.3-5.1 [facility] Comment on above: Performed By: #### L 500.2500, L100.0500, L501.2300, L501.5200 ####[facility] [address] [place], [address] Sodium [Moles/Vol] 144 mmol/L Normal 133-145 [facility] Comment on above: Performed By: #### L 500.2500, L100.0500, L501.2300, L501.5200 ####[facility] [address] [place], [address] Urea nitrogen [Mass/Vol] 22 mg/dL High 4-19 [facility] Comment on above: Performed By: #### L 500.2500, L100.0500, L501.2300, L501.5200 ####[facility] [address] [place], [address] CBC-Complete Blood [facility] Erythrocyte distribution width (RBC) [Ratio] 14.6 % Normal 11.6-14.6 [facility] Comment on above: Performed By: #### L 500.2500, L100.0500, L501.2300, L501.5200 ####[facility] [address] [place], [address] Hematocrit (Bld) [Volume fraction] 40.3 % Normal 37-47 [facility] Comment on above: Performed By: #### L 500.2500, L100.0500, L501.2300, L501.5200 ####[facility] [address] [place], [address] Hemoglobin (Bld) [Mass/Vol] 12.6 g/dL Normal 12.0-15.0 [facility] Comment on above: Performed By: #### L 500.2500, L100.0500, L501.2300, L501.5200 ####[facility] [address] [place], [address] MCH (RBC) [Entitic mass] 31.3 pg Normal 27.0-32.0 [facility] Comment on above: Performed By: #### L 500.2500, L100.0500, L501.2300, L501.5200 ####[facility] [address] [place], [address] MCHC (RBC) [Mass/Vol] 31.3 g/dL Low 32-36 [facility] Comment on above: Performed By: #### L 500.2500, L100.0500, L501.2300, L501.5200 ####[facility] [address] [place], [address] MCV (RBC) [Entitic vol] 100.2 fL High 81-99 [facility] Comment on above: Performed By: #### L 500.2500, L100.0500, L501.2300, L501.5200 ####[facility] [address] [place], [address] Platelet mean volume (Bld) [Entitic vol] 10.6 fL Normal 6.2-12.0 [facility] Comment on above: Performed By: #### L 500.2500, L100.0500, L501.2300, L501.5200 ####[facility] [address] [place], [address] Platelets (Bld) [#/Vol] 226 10*3/uL Normal 150-450 [facility] Comment on above: Performed By: #### L 500.2500, L100.0500, L501.2300, L501.5200 ####[facility] [address] [place], [address] RBC (Bld) [#/Vol] 4.02 10*6/uL Low 4.2-5.[address] [facility] Comment on above: Performed By: #### L 500.2500, L100.0500, L501.2300, L501.5200 ####[facility] [address] [place], [address] RDW SD 54.2 fl High 35.1-43.9 [facility] Comment on above: Performed By: #### L 500.2500, L100.0500, L501.2300, L501.5200 ####[facility] [address] [place], [address] WBC (Bld) [#/Vol] 8.9 10*3/uL Normal 4.4-11.0 [facility] Comment on above: Performed By: #### L 500.2500, L100.0500, L501.2300, L501.5200 ####[facility] [address] [place], [address] Magnesiumon 02-21-2025 Magnesium [Mass/Vol] 1.9 mg/dL Normal 1.5-2.2 [facility] Comment on above: Performed By: #### L 500.2500, L100.0500, L501.2300, L501.5200 ####[facility] [address] [place], [address] Phosphoruson 02-21-2025 Phosphate [Mass/Vol] 3.3 mg/dL Normal 2.7-4.5 [facility] Comment on above: Performed By: #### L 500.2500, L100.0500, L501.2300, L501.5200 ####[facility] [address] [place], [address] Urine Cultureon 02-21-2025 URC Below infection leve l. Mixed Gram Pos Gram Neg Org [place] Count 1000-10,000 MIXC Mixed contaminants. Submit a new specimen if indicated. Normal [facility] Comment on above: Performed By: #### M 100.678, M100.2200, L400.0001 ####[facility] [address] [place], [address] Bilirubin, totalOrdered By: Kym Norton on 02-20-2025 Bilirubin [Mass/Vol] 0.43 mg/dL 0.00-1.30 [facility] CBC-Complete Blood Cnt No Di ffon 02-20-2025 Erythrocyte distribution width (RBC) [Ratio] 14.4 % Normal 11.6-14.6 [facility] Comment on above: Performed By: #### L 100.0500, L500.4050, L500.4100, L501.9520 ####[facility] [address] [place], [address] Hematocrit (Bld) [Volume fraction] 39.2 % Normal 37-47 [facility] Comment on above: Performed By: #### L 100.0500, L500.4050, L500.4100, L501.9520 ####[facility] [address] [place], [address] Hemoglobin (Bld) [Mass/Vol] 12.4 g/dL Normal 12.0-15.0 [facility] Comment on above: Performed By: #### L 100.0500, L500.4050, L500.4100, L501.9520 ####[facility] [address] [place], [address] MCH (RBC) [Entitic mass] 31.2 pg Normal 27.0-32.0 [facility] Comment on above: Performed By: #### L 100.0500, L500.4050, L500.4100, L501.9520 ####[facility] [address] [place], [address] MCHC (RBC) [Mass/Vol] 31.6 g/dL Low 32-36 [facility] Comment on above: Performed By: #### L 100.0500, L500.4050, L500.4100, L501.9520 ####[facility] [address] [place], [address] MCV (RBC) [Entitic vol] 98.7 fL Normal 81-99 [facility] Comment on above: Performed By: #### L 100.0500, L500.4050, L500.4100, L501.9520 ####[facility] [address] [place], [address] Platelet mean volume (Bld) [Entitic vol] 11.2 fL Normal 6.2-12.0 [facility] Comment on above: Performed By: #### L 100.0500, L500.4050, L500.4100, L501.9520 ####[facility] [address] [place], [address] Platelets (Bld) [#/Vol] 223 10*3/uL Normal 150-450 [facility] Comment on above: Performed By: #### L 100.0500, L500.4050, L500.4100, L501.9520 ####[facility] [address] [place], [address] RBC (Bld) [#/Vol] 3.97 10*6/uL Low 4.2-5.[address] [facility] Comment on above: Performed By: #### L 100.0500, L500.4050, L500.4100, L501.9520 ####[facility] [address] [place], [address] RDW SD 52.0 fl High 35.1-43.9 [facility] Comment on above: Performed By: #### L 100.0500, L500.4050, L500.4100, L501.9520 ####[facility] [address] [place], [address] WBC (Bld) [#/Vol] 8.2 10*3/uL Normal 4.4-11.0 [facility] Comment on above: Performed By: #### L 100.0500, L500.4050, L500.4100, L501.9520 ####[facility] [address] [place], [address] CTA Chest W/WO Contraston CTA Chest W/WO Contrast Normal [facility] Calculated very low density lipoprotein (VLDL) cholesterol measurementOrdered By: Kym Norton on 02-20-2025 Calculated very low density lipoprotein (VLDL) cholesterol measurement 12 mg/dL [facility] VLDL Cholesterol 12 mg/dL 40 [facility] Comprehensive Metabolic Prof ilon 02-20-2025 Albumin [Mass/Vol] 3.8 g/dL Normal 3.4-4.8 [facility] Comment on above: Performed By: #### L 100.0500, L500.4050, L500.4100, L501.9520 ####[facility] [address] [place], [address] Albumin/Globulin [Mass ratio] 1.2 {ratio} Normal 0.9-2.4 [facility] Comment on above: Performed By: #### L 100.0500, L500.4050, L500.4100, L501.9520 ####[facility] [address] [place], [address] ALK PHOS 72 U/L Normal 35-104 [facility] Comment on above: Performed By: #### L 100.0500, L500.4050, L500.4100, L501.9520 ####[facility] [address] [place], [address] ALT [Catalytic activity/Vol] 42 U/L High <=34 [facility] Comment on above: Performed By: #### L 100.0500, L500.4050, L500.4100, L501.9520 ####[facility] [address] [place], [address] AST [Catalytic activity/Vol] 27 U/L Normal <=31 [facility] Comment on above: Performed By: #### L 100.0500, L500.4050, L500.4100, L501.9520 ####[facility] [address] [place], [address] Bilirubin [Mass/Vol] 0.43 mg/dL Normal 0.00-1.30 [facility] Comment on above: Performed By: #### L 100.0500, L500.4050, L500.4100, L501.9520 ####[facility] [address] [place], [address] BUN/CRE 30.9 RATIO High 10-20 [facility] Comment on above: Performed By: #### L 100.0500, L500.4050, L500.4100, L501.9520 ####[facility] [address] [place], [address] Calcium [Mass/Vol] 8.9 mg/dL Normal 7.6-11.0 [facility] Comment on above: Performed By: #### L 100.0500, L500.4050, L500.4100, L501.9520 ####[facility] [address] [place], [address] Chloride [Moles/Vol] 95 mmol/L Low 98-108 [facility] Comment on above: Performed By: #### L 100.0500, L500.4050, L500.4100, L501.9520 ####[facility] [address] [place], [address] CO2 [Moles/Vol] 34.3 mmol/L High 21.0-32.0 [facility] Comment on above: Performed By: #### L 100.0500, L500.4050, L500.4100, L501.9520 ####[facility] [address] [place], [address] Creatinine [Mass/Vol] 0.56 mg/dL Low 0.70-1.20 [facility] Comment on above: Performed By: #### L 100.0500, L500.4050, L500.4100, L501.9520 ####[facility] [address] [place], [address] ECRCL 86.85 ml/min Normal 50-250 [facility] Comment on above: Performed By: #### L 100.0500, L500.4050, L500.4100, L501.9520 ####[facility] [address] [place], [address] GAP 13 Normal 5-15 [facility] Comment on above: Performed By: #### L 100.0500, L500.4050, L500.4100, L501.9520 ####[facility] [address] [place], [address] GFR/1.73 sq M.predicted among non-blacks MDRD (S/P/Bld) [Vol rate/Area] 100 mL/min/{1.73_m2} Normal >60 [facility] Comment on above: Result Comment: mL/m in/1.73m2 CKD-EPI Creatinine Equation (2020) Performed By: #### L 100.0500, L500.4050, L500.4100, L501.9520 ####[facility] [address] [place], [address] Globulin (S) [Mass/Vol] 3.2 g/dL Normal 2.2-4.2 [facility] Comment on above: Performed By: #### L 100.0500, L500.4050, L500.4100, L501.9520 ####[facility] [address] [place], [address] Glucose [Mass/Vol] 141 mg/dL High 70-99 [facility] Comment on above: Performed By: #### L 100.0500, L500.4050, L500.4100, L501.9520 ####[facility] [address] [place], [address] Potassium [Moles/Vol] 3.8 mmol/L Normal 3.3-5.1 [facility] Comment on above: Result Comment: Hemo lysis present, Results??could be affected.?? Performed By: #### L 100.0500, L500.4050, L500.4100, L501.9520 ####[facility] [address] [place], [address] Sodium [Moles/Vol] 142 mmol/L Normal 133-145 [facility] Comment on above: Performed By: #### L 100.0500, L500.4050, L500.4100, L501.9520 ####[facility] [address] [place], [address] T PROT 7.0 g/dL Normal 5.9-8.4 [facility] Comment on above: Performed By: #### L 100.0500, L500.4050, L500.4100, L501.9520 ####[facility] [address] [place], [address] Urea nitrogen [Mass/Vol] 17 mg/dL Normal 4-19 [facility] Comment on above: Performed By: #### L 100.0500, L500.4050, L500.4100, L501.9520 ####[facility] [address] [place], [address] Echocardiogram study reportO rdered By: Mercy Purvis on 02-20-2025 Study report [facility] [place] [address] Echo Complete W/ Contrast 02/20/25 1104 MR#: [id number] Acct: [id number] Name: RAJENDRA LUCERO Rep #:[id number] 06 : 1955 69 From: Mercy Purvis MD Attending Dr: DO Esperanza Romero tatus: ADM IN Ordering Dr: Kym Norton MD Date: Location: [facility] Sex: F C Admitted: 02/19/25 Reason For [...] Dictated: 02/20/25 1104 Date Transcribed: 02/20/[address] Justice: Signed [facility] Work Phone: LDL calc ser/plasOrdered By: Kym Norton on 02-20-2025 Cholesterol in LDL [Mass/Vol] 101 mg/dL [facility] Comment on above: Tcoswmuttz=137-730 m g/dL & Higher Mjhm=774 mg/dL or greater LDL Cholesterol, Calculated 101 mg/dL [facility] Comment on above: Lbkypfdsjn=557-963 m g/dL & Higher Ukoe=593 mg/dL or greater Laboratory - Chemistry and C hemistry - challengeOrdered By: Kym Norton on 02-20-2025 AST [Catalytic activity/Vol] 27 U/L <32 [facility] Lipid Profileon 02-20-2025 CHOL:HDL 2.63 Normal [facility] Comment on above: Performed By: #### L 100.0500, L500.4050, L500.4100, L501.9520 ####[facility] [address] [place], [place], [address] Cholesterol [Mass/Vol] 183 mg/dL Normal <=200 [facility] Comment on above: Result Comment: Chol esterol level, Desirable <200 mg/dLBorderline high cholesterol 200-239 mg/dLHigh cholesterol >=240 mg/dLRecommendations of the NCEP Adult Treatment Panel for thefollowing risk-cutoff thresholds for the [place] [facility]. Performed By: #### L 100.0500, L500.4050, L500.4100, L501.9520 ####[facility] [address] [place], [place], [address] Cholesterol in HDL [Mass/Vol] 70 mg/dL Normal [facility] Comment on above: Result Comment: Monika onal Cholesterol Education Program (NCEP) guidelines:<40 mg/dL: Low HDL-cholesterol (major risk factor for CHD)>= 60 mg/dL: High HDL-cholesterol (negative risk factor forCHD)HDL-cholesterol is affected by a number of factors, e.g.smoking, exercise, hormones, sex and age. Performed By: #### L 100.0500, L500.4050, L500.4100, L501.9520 ####[facility] [address] [place], [address] Cholesterol in LDL [Mass/Vol] 101 mg/dL Normal [facility] Comment on above: Result Comment: Bord ivosny=261-459 mg/dL Higher Yypq=355 mg/dL or greater Performed By: #### L 100.0500, L500.4050, L500.4100, L501.9520 ####[facility] [address] [place], [address] Cholesterol in VLDL [Mass/Vol] 12 mg/dL Normal 5-40 [facility] Comment on above: Performed By: #### L 100.0500, L500.4050, L500.4100, L501.9520 ####[facility] [address] [place], [address] Triglyceride [Mass/Vol] 61 mg/dL Normal [facility] Comment on above: Result Comment: The drugs N-Acetylcysteine and Metamizole may falselydepress this assay.Normal range: <150 mg/dLBorderline High: 150-199 mg/dLHigh: 200-499 mg/dLVery High: >500 mg/dL Performed By: #### L 100.0500, L500.4050, L500.4100, L501.9520 ####[facility] [address] [place], [address] Magnesiumon 02-20-2025 Magnesium [Mass/Vol] 1.9 mg/dL Normal 1.5-2.2 [facility] Comment on above: Order Comment: Comme nts: Add onto previous labs if possible Performed By: #### L 725.5204 ####[facility] [address] [place], [address] RESPIRATORY PANEL MOLECULARo n 02-20-2025 RP PANEL Normal [facility] Comment on above: Performed By: #### M 100.638 ####[facility] [address] [place], [address] Respiratory pathogens DNA an d RNA panel RENETTA+probe (Resp)Ordered By: Claudia Valerio on 02-20-2025 Respiratory Panel (PCR) [facility] Respiratory pathogens detect ion panel by molecular detection methodOrdered By: Claudia Valerio on 02-20-2025 Respiratory pathogens DNA and RNA panel RENETTA+probe (Resp) [facility] Screening total cholesterol/ high density lipoprotein (HDL) cholesterol ratioOrdered By: Kym Norton on 02-20-2025 Cholesterol.total/Cho lesterol in HDL [Mass ratio] 2.63 {ratio} [facility] Serum globulin measurementOr dered By: Kym Norton on 02-20-2025 Globulin (S) [Mass/Vol] 3.2 g/dL 2.2-4.2 [facility] Serum or plasma alanine lindsey otransferase (ALT) measurementOrdered By: Kym Norton on 02-20-2025 ALT [Catalytic activity/Vol] 42 U/L High <35 [facility] Serum or plasma albumin tad urement (mass/volume)Ordered By: Kym Norton on 02-20-2025 Albumin [Mass/Vol] 3.8 g/dL 3.4-4.8 [facility] Serum or plasma albumin/glob ulin mass ratioOrdered By: Kym Norton on 02-20-2025 Albumin/Globulin [Mass ratio] 1.2 {ratio} 0.9-2.4 [facility] Serum or plasma alkaline zita sphatase measurementOrdered By: Kym Norton on 02-20-2025 ALP [Catalytic activity/Vol] 72 U/L 35-104 [facility] Serum or plasma cholesterol in HDL measurement (mass/volume)Ordered By: Kym Norton on 02-20-2025 Cholesterol in HDL [Mass/Vol] 70 mg/dL >40 [facility] Comment on above: National Cholesterol Education Program (NCEP) guidelines:<40 mg/dL: Low HDL-cholesterol (major risk factor for CHD)>= 60 mg/dL: High HDL-cholesterol (negative risk factor for CHD)HDL-cholesterol is affected by a number of factors, e.g. smoking, exercise, hormones, sex and age. Serum or plasma cholesterol measurement (mass/volume)Ordered By: Kym Norton on 02-20-2025 Cholesterol [Mass/Vol] 183 mg/dL <201 [facility] Comment on above: Cholesterol level, D esirable <200 mg/dLBorderline high cholesterol 200-239 mg/dLHigh cholesterol >=240 mg/dLRecommendations of the NCEP Adult Treatment Panel for the following risk-cutoff thresholds for the [place] population. TSH DL <= 0.005 mIU/L QnOrde red By: Kym Norton on 02-20-2025 Thyroid Stimulating Hormone (TSH) 0.626 uIU/mL 0.300-4.20 0 [facility] TSH Qn 0.626 uIU/mL 0.300-4.20 0 [facility] Thyroid Stim Hormone (TSH)on 02-20-2025 TSH 0.626 uIU/mL Normal 0.300-4.20 0 [facility] Comment on above: Performed By: #### L 100.0500, L500.4050, L500.4100, L501.9520 ####[facility] [address] [place], [place], [id number] Total proteinOrdered By: Marychuy Norton on 02-20-2025 Protein [Mass/Vol] 7.0 g/dL 5.9-8.4 [facility] Triglycerides measurementOrd ered By: Kym Norton on 02-20-2025 Triglyceride [Mass/Vol] 61 mg/dL <199 [facility] Comment on above: The drugs N-Acetylcy steine and Metamizole may falsely depress this assay. Normal range: <150 mg/dLBorderline High: 150-199 mg/dLHigh: 200-499 mg/dLVery High: >500 mg/dL Activated partial thrombopla stin time (aPTT) in platelet poor plasma by coagulation aOrdered By: Linwood Ivy on 02-19-2025 aPTT Coag (PPP) [Time] 27.1 s 24.1-36.2 [facility] Bilirubin Test strip Ql (U)O rdered By: Linwood Ivy on 02-19-2025 Bilirubin Ql (U) Negative Negative [facility] Blood cultureOrdered By: Melissa Ivy on 02-19-2025 Bacteria identified Cx Nom (Bld) No growth in 5 days. [facility] Bacteria identified Cx Nom (Bld) No growth in 5 days. [facility] CBC W/Diff, Automatedon 01-27 Absolute Lymph 0.84 X10 3/uL Normal 0.83-4.51 [facility] Comment on above: Performed By: #### L 100.0100, L300.4310, L503.6005, L300.3900, L500.4050, M200.1000 ####[facility] [address] [place], [address] Absolute Neut 6.9 X10 3/uL Normal 2.0-7.7 [facility] Comment on above: Performed By: #### L 100.0100, L300.4310, L503.6005, L300.3900, L500.4050, M200.1000 ####[facility] [address] [place], [address] Basophils/100 WBC (Bld) 0.5 % Normal 0-1 [facility] Comment on above: Performed By: #### L 100.0100, L300.4310, L503.6005, L300.3900, L500.4050, M200.1000 ####[facility] [address] [place], [address] Eosinophils/100 WBC (Bld) 1.0 % Normal 0-5 [facility] Comment on above: Performed By: #### L 100.0100, L300.4310, L503.6005, L300.3900, L500.4050, M200.1000 ####[facility] [address] [place], [address] Erythrocyte distribution width (RBC) [Ratio] 14.6 % Normal 11.6-14.6 [facility] Comment on above: Performed By: #### L 100.0100, L300.4310, L503.6005, L300.3900, L500.4050, M200.1000 ####[facility] [address] [place], [address] Hematocrit (Bld) [Volume fraction] 41.2 % Normal 37-47 [facility] Comment on above: Performed By: #### L 100.0100, L300.4310, L503.6005, L300.3900, L500.4050, M200.1000 ####[facility] [address] [place], [address] Hemoglobin (Bld) [Mass/Vol] 13.0 g/dL Normal 12.0-15.0 [facility] Comment on above: Performed By: #### L 100.0100, L300.4310, L503.6005, L300.3900, L500.4050, M200.1000 ####[facility] [address] [place], [address] IG% 0.200 Normal 0.0-0.9 [facility] Comment on above: Result Comment: IG% - Immature Granulocytes (promyelocytes, myelocytes andmetamyelocytes) > 1% indicates that a LEFT SHIFT is Present. Performed By: #### L 100.0100, L300.4310, L503.6005, L300.3900, L500.4050, M200.1000 ####[facility] [address] [place], [address] Lymphocytes/100 WBC (Bld) 9.8 % Low 19-41 [facility] Comment on above: Performed By: #### L 100.0100, L300.4310, L503.6005, L300.3900, L500.4050, M200.1000 ####[facility] [address] [place], [address] MCH (RBC) [Entitic mass] 31.3 pg Normal 27.0-32.0 [facility] Comment on above: Performed By: #### L 100.0100, L300.4310, L503.6005, L300.3900, L500.4050, M200.1000 ####[facility] [address] [place], [address] MCHC (RBC) [Mass/Vol] 31.6 g/dL Low 32-36 [facility] Comment on above: Performed By: #### L 100.0100, L300.4310, L503.6005, L300.3900, L500.4050, M200.1000 ####[facility] [address] [place], [address] MCV (RBC) [Entitic vol] 99.0 fL Normal 81-99 [facility] Comment on above: Performed By: #### L 100.0100, L300.4310, L503.6005, L300.3900, L500.4050, M200.1000 ####[facility] [address] [place], [address] Monocytes/100 WBC (Bld) 8.5 % Normal 0-10 [facility] Comment on above: Performed By: #### L 100.0100, L300.4310, L503.6005, L300.3900, L500.4050, M200.1000 ####[facility] [address] [place], [address] Neutrophils/100 WBC (Bld) 80.0 % High 47-70 [facility] Comment on above: Performed By: #### L 100.0100, L300.4310, L503.6005, L300.3900, L500.4050, M200.1000 ####[facility] [address] [place], [address] Nucleated RBC (Bld) [#/Vol] 0 10*3/uL Normal 0-5 [facility] Comment on above: Performed By: #### L 100.0100, L300.4310, L503.6005, L300.3900, L500.4050, M200.1000 ####[facility] [address] [place], [address] Platelet mean volume (Bld) [Entitic vol] 10.4 fL Normal 6.2-12.0 [facility] Comment on above: Performed By: #### L 100.0100, L300.4310, L503.6005, L300.3900, L500.4050, M200.1000 ####[facility] [address] [place], [address] Platelets (Bld) [#/Vol] 231 10*3/uL Normal 150-450 [facility] Comment on above: Performed By: #### L 100.0100, L300.4310, L503.6005, L300.3900, L500.4050, M200.1000 ####[facility] [address] [place], [address] RBC (Bld) [#/Vol] 4.16 10*6/uL Low 4.2-5.[address] [facility] Comment on above: Performed By: #### L 100.0100, L300.4310, L503.6005, L300.3900, L500.4050, M200.1000 ####[facility] [address] [place], [address] RDW SD 53.2 fl High 35.1-43.9 [facility] Comment on above: Performed By: #### L 100.0100, L300.4310, L503.6005, L300.3900, L500.4050, M200.1000 ####[facility] [address] [place], [address] WBC (Bld) [#/Vol] 8.6 10*3/uL Normal 4.4-11.0 [facility] Comment on above: Performed By: #### L 100.0100, L300.4310, L503.6005, L300.3900, L500.4050, M200.1000 ####[facility] [address] [place], [address] Chest PA and Lateralon 02-19 Chest PA and Lateral Normal [facility] Comprehensive Metabolic Prof ilon 02-19-2025 Albumin [Mass/Vol] 4.0 g/dL Normal 3.4-4.8 [facility] Comment on above: Performed By: #### L 100.0100, L300.4310, L503.6005, L300.3900, L500.4050, M200.1000 ####[facility] [address] [place], [address] Albumin/Globulin [Mass ratio] 1.2 {ratio} Normal 0.9-2.4 [facility] Comment on above: Performed By: #### L 100.0100, L300.4310, L503.6005, L300.3900, L500.4050, M200.1000 ####[facility] [address] [place], [address] ALK PHOS 80 U/L Normal 35-104 [facility] Comment on above: Performed By: #### L 100.0100, L300.4310, L503.6005, L300.3900, L500.4050, M200.1000 ####[facility] [address] [place], [address] ALT [Catalytic activity/Vol] 45 U/L High <=34 [facility] Comment on above: Performed By: #### L 100.0100, L300.4310, L503.6005, L300.3900, L500.4050, M200.1000 ####[facility] [address] [place], [address] AST [Catalytic activity/Vol] 29 U/L Normal <=31 [facility] Comment on above: Performed By: #### L 100.0100, L300.4310, L503.6005, L300.3900, L500.4050, M200.1000 ####[facility] [address] [place], [address] Bilirubin [Mass/Vol] 0.69 mg/dL Normal 0.00-1.30 [facility] Comment on above: Performed By: #### L 100.0100, L300.4310, L503.6005, L300.3900, L500.4050, M200.1000 ####[facility] [address] [place], [address] BUN/CRE 27.9 RATIO High 10-20 [facility] Comment on above: Performed By: #### L 100.0100, L300.4310, L503.6005, L300.3900, L500.4050, M200.1000 ####[facility] [address] [place], [address] Calcium [Mass/Vol] 9.4 mg/dL Normal 7.6-11.0 [facility] Comment on above: Performed By: #### L 100.0100, L300.4310, L503.6005, L300.3900, L500.4050, M200.1000 ####[facility] [address] [place], [address] Chloride [Moles/Vol] 96 mmol/L Low 98-108 [facility] Comment on above: Performed By: #### L 100.0100, L300.4310, L503.6005, L300.3900, L500.4050, M200.1000 ####[facility] [address] [place], [address] CO2 [Moles/Vol] 34.4 mmol/L High 21.0-32.0 [facility] Comment on above: Performed By: #### L 100.0100, L300.4310, L503.6005, L300.3900, L500.4050, M200.1000 ####[facility] [address] [place], [address] Creatinine [Mass/Vol] 0.55 mg/dL Low 0.70-1.20 [facility] Comment on above: Performed By: #### L 100.0100, L300.4310, L503.6005, L300.3900, L500.4050, M200.1000 ####[facility] [address] [place], [address] ECRCL 87.97 ml/min Normal 50-250 [facility] Comment on above: Performed By: #### L 100.0100, L300.4310, L503.6005, L300.3900, L500.4050, M200.1000 ####[facility] [address] [place], [address] GAP 11 Normal 5-15 [facility] Comment on above: Performed By: #### L 100.0100, L300.4310, L503.6005, L300.3900, L500.4050, M200.1000 ####[facility] [address] [place], [address] GFR/1.73 sq M.predicted among non-blacks MDRD (S/P/Bld) [Vol rate/Area] 100 mL/min/{1.73_m2} Normal >60 [facility] Comment on above: Result Comment: mL/m in/1.73m2 CKD-EPI Creatinine Equation (2020) Performed By: #### L 100.0100, L300.4310, L503.6005, L300.3900, L500.4050, M200.1000 ####[facility] [address] [place], [address] Globulin (S) [Mass/Vol] 3.3 g/dL Normal 2.2-4.2 [facility] Comment on above: Performed By: #### L 100.0100, L300.4310, L503.6005, L300.3900, L500.4050, M200.1000 ####[facility] [address] [place], [address] Glucose [Mass/Vol] 116 mg/dL High 70-99 [facility] Comment on above: Performed By: #### L 100.0100, L300.4310, L503.6005, L300.3900, L500.4050, M200.1000 ####[facility] [address] [place], [address] Potassium [Moles/Vol] 3.6 mmol/L Normal 3.3-5.1 [facility] Comment on above: Performed By: #### L 100.0100, L300.4310, L503.6005, L300.3900, L500.4050, M200.1000 ####[facility] [address] [place], [address] Sodium [Moles/Vol] 142 mmol/L Normal 133-145 [facility] Comment on above: Performed By: #### L 100.0100, L300.4310, L503.6005, L300.3900, L500.4050, M200.1000 ####[facility] [address] [place], [address] T PROT 7.2 g/dL Normal 5.9-8.4 [facility] Comment on above: Performed By: #### L 100.0100, L300.4310, L503.6005, L300.3900, L500.4050, M200.1000 ####[facility] [address] [place], [address] Urea nitrogen [Mass/Vol] 15 mg/dL Normal 4-19 [facility] Comment on above: Performed By: #### L 100.0100, L300.4310, L503.6005, L300.3900, L500.4050, M200.1000 ####[facility] [address] [place], [address] Echo Complete W/ Contraston 02-19-2025 Echo Complete W/ Contrast Normal [facility] Emergency Department Summary on 02-19-2025 Emergency Department Summary Normal [facility] Epithelial cells.squamous LM Ql (Urine sed)Ordered By: Linwood Ivy on 02-19-2025 Epithelial cells.squamous LM.HPF (Urine sed) [#/Area] 0 /[HPF] 5-10 [facility] Glucose Ql (U)Ordered By: Fernandez Ivy on 02-19-2025 Urine Glucose (UA) Normal mg/dl Normal [facility] H AND P Exam - Hospitaliston 02-19-2025 H&P Exam - Hospitalist Normal [facility] Influenza virus A and B and SARS-CoV-2 (COVID-19) and Respiratory syncytial virus RNAOrdered By: Linwood Ivy on 02-19-2025 SARS-CoV-2 (COVID-19) RNA RENETTA+probe Ql (Unsp spec) [facility] International normalized rat io (INR) calculationOrdered By: Linwood Ivy on 02-19-2025 INR Coag (Bld) [Relative time] 1.0 {INR} [facility] Ketones Test strip Ql (U)Ord ered By: Linwood Ivy on 02-19-2025 Ketones Ql (U) Negative Negative [facility] L499.0042on 02-19-2025 Trop T High Sen < 6 Normal <=14 [facility] Comment on above: Performed By: #### L 499.0042 ####[facility] [address] [place], [address] L499.0043on 02-19-2025 Trop T High Sen < 6 Normal <=14 [facility] Comment on above: Performed By: #### L 499.0043 ####[facility] [address] [place], [address] L501.4021on 02-19-2025 Trop T High Sen < 6 Normal <=14 [facility] Comment on above: Performed By: #### L 503.7505, L501.4021 ####[facility] [address] [place], [address] L503.7505on 02-19-2025 Natriuretic peptide B (Bld) [Mass/Vol] 529 pg/mL Normal <=900 [facility] Comment on above: Result Comment: Hear t Failure Unlikely: < 300 pg/mLHeart Failure Likely< 50 Years: > 450 pg/mL50-75 Years: > 900 pg/mL>75 Years: > 1800 pg/mL Performed By: #### L 503.7505, L501.4021 ####[facility] [address] [place], [address] Lactic Acidon 02-19-2025 Lactate [Moles/Vol] 1.5 mmol/L Normal 0.0-2.[address] [facility] Comment on above: Order Comment: Y Performed By: #### L 100.0100, L300.4310, L503.6005, L300.3900, L500.4050, M200.1000 ####[facility] [address] [place], [address] Lactic acid measurementOrder ed By: Linwood Ivy on 02-19-2025 Lactate [Moles/Vol] 1.5 mmol/L 0.0-2.[address] [facility] M100.678on 02-19-2025 M100.678 Pending SARS-CoV-2 (COVID 19) Negative INFLUENZA A Negative INFLUENZA B Negative RSV PCR Negative Normal [facility] Comment on above: Performed By: #### M 100.678, M100.2200, L400.0001 ####[facility] [address] [place], [address] Microscopic analysis of urin e for red blood cells (RBC)Ordered By: Linwood Ivy on 02-19-2025 Microscopic analysis of urine for red blood cells (RBC) 0 SEEN /hpf 0-5 [facility] Urine RBC 0 SEEN /hpf 0-5 [facility] Mucus LM Ql (Urine sed)Order ed By: Linwood Ivy on 02-19-2025 Mucus Ql (Urine sed) 0 SEEN /hpf [facility] Natriuretic peptide.B prohor gonzalo N-Terminal [Mass/Vol]Ordered By: Linwood Ivy on 02-19-2025 Natriuretic peptide B (Bld) [Mass/Vol] 529 pg/mL <900 [facility] Comment on above: Heart Failure Unlike ly: < 300 pg/mLHeart Failure Likely< 50 Years: > 450 pg/mL50-75 Years: > 900 pg/mL>75 Years: > 1800 pg/mL Natriuretic peptide.B prohor gonzalo N-Terminal [Mass/volume] in Serum or PlasmaOrdered By: Linwood Ivy on 02-19-2025 Natriuretic peptide.B prohormone N-Terminal [Mass/Vol] 529 pg/mL <900 [facility] Comment on above: Heart Failure Unlike ly: < 300 pg/mLHeart Failure Likely< 50 Years: > 450 pg/mL50-75 Years: > 900 pg/mL>75 Years: > 1800 pg/mL Nitrite Test strip Ql (U)Ord ered By: Linwood Ivy on 02-19-2025 Nitrite Ql (U) Negative Negative [facility] Partial Thromboplast Timeon 02-19-2025 aPTT Coag (Bld) [Time] 27.1 s Normal 24.1-36.2 [facility] Comment on above: Performed By: #### L 100.0100, L300.4310, L503.6005, L300.3900, L500.4050, M200.1000 ####[facility] [address] [place], [place], [address] Protein Test strip Ql (U)Ord ered By: Linwood Ivy on 02-19-2025 Protein Ql (U) Negative Negative [facility] Prothrombin Time w/INRon INR Coag (PPP) [Relative time] 1.0 {INR} Normal [facility] Comment on above: Performed By: #### L 100.0100, L300.4310, L503.6005, L300.3900, L500.4050, M200.1000 ####[facility] [address] [place], [address] PT Coag (PPP) [Time] 13.4 s Normal 11.7-14.9 [facility] Comment on above: Performed By: #### L 100.0100, L300.4310, L503.6005, L300.3900, L500.4050, M200.1000 ####[facility] [address] [place], [place], [id number] Prothrombin timeOrdered By: Linwood Ivy on 02-19-2025 PT Coag (PPP) [Time] 13.4 s 11.7-14.9 [facility] Squamous epithelial cells de tection in urine sediment by light microscopyOrdered By: Linwood Ivy on 02-19-2025 Epithelial cells.squamous LM Ql (Urine sed) 0-5 SEEN /hpf 5-10 [facility] Troponin T.cardiac High sens itivity method [Mass/Vol]Ordered By: Linwood Ivy on 02-19-2025 Troponin T High Sensitivity 4 Hour < 6 ng/L <14 [facility] Troponin T High Sensitivity 2 Hour < 6 ng/L <14 [facility] Troponin T High Sensitivity < 6 ng/L <14 [facility] Troponin T.cardiac [Mass/vol ume] in Serum or Plasma by High sensitivity methodOrdered By: Linwood Ivy on 02-19-2025 Troponin T.cardiac High sensitivity method [Mass/Vol] < 6 ng/L <14 [facility] Troponin T.cardiac High sensitivity method [Mass/Vol] < 6 ng/L <14 [facility] Troponin T.cardiac High sensitivity method [Mass/Vol] < 6 ng/L <14 [facility] Urinalysis, Completeon 02-19 EPI,SQUAMOUS 0-5 SEEN Normal 5-10 [facility] Comment on above: Order Comment: CLEAN CATCH Performed By: #### M 100.678, M100.2200, L400.0001 ####[facility] [address] [place], [address] WBC 0-5 SEEN Normal 0-5 [facility] Comment on above: Order Comment: CLEAN CATCH Performed By: #### M 100.678, M100.2200, L400.0001 ####[facility] [address] [place], [address] BACTERIA 0 SEEN Normal None Seen [facility] Comment on above: Order Comment: CLEAN CATCH Performed By: #### M 100.678, M100.2200, L400.0001 ####[facility] [address] [place], [address] Mucus Ql (Urine sed) 0 SEEN Normal [facility] Comment on above: Order Comment: CLEAN CATCH Performed By: #### M 100.678, M100.2200, L400.0001 ####[facility] [address] [place], [address] RBC 0 SEEN Normal 0-5 [facility] Comment on above: Order Comment: CLEAN CATCH Performed By: #### M 100.678, M100.2200, L400.0001 ####[facility] [address] [place], [address] Urine blood detectionOrdered By: Linwood Ivy on 02-19-2025 Urine Occult Blood Negative Negative [facility] Urine clarityOrdered By: Melissa Ivy on 02-19-2025 Clarity (U) Clear Clear [facility] Urine color determinationOrd ered By: Linwood Ivy on 02-19-2025 Color (U) Straw Yellow [facility] Urine cultureOrdered By: Melissa Ivy on 02-19-2025 Bacteria identified Cx Nom (U) Mixed Gram Pos & Gram Neg Org Abnormal [facility] Urine glucose detectionOrder ed By: Linwood Ivy on 02-19-2025 Glucose Ql (U) Normal mg/dl Normal [facility] Urine leukocyte esterase det ection by dipstickOrdered By: Linwood Ivy on 02-19-2025 Leukocyte esterase Test strip Ql (U) 25 /ul High Negative [facility] Urine pHOrdered By: Linwood cole on 02-19-2025 pH (U) 6.0 [pH] 5.0 - 8.0 [facility] Urine sediment bacteria coun t by microscopy (number/high power field)Ordered By: Linwood Ivy on 02-19-2025 Bacteria LM.HPF (Urine sed) [#/Area] 0 /[HPF] None Seen [facility] Urine specific gravity measu rementOrdered By: Linwood Ivy on 02-19-2025 Specific gravity (U) [Rel density] 1.010 1.002-1.03 0 [facility] Urine urobilinogen measureme ntOrdered By: Linwood Ivy on 02-19-2025 Urobilinogen Ql (U) Normal mg/dl Normal [facility] Urobilinogen Ql (U)Ordered B y: Linwood Ivy on 02-19-2025 Urine Urobilinogen Normal mg/dl Normal [facility] White blood cell countOrdere d By: Linwood Ivy on 02-19-2025 Urine WBC 0-5 SEEN /hpf 0-5 [facility] White blood cell count 0-5 SEEN /hpf 0-5 [facility] aPTT Coag (PPP) [Time]Ordere d By: iLnwood Ivy on 02-19-2025 aPTT Coag (Bld) [Time] 27.1 s 24.1-36.2 [facility] CNOVon 01-25-2025 CNOV Office Visit (PULMWS ) RAJENDRA LUCERO ([id number]) 1955 F Date Time Provider Department 01/25/25 [...] activities of daily living. Modified Medical Research [place] Dyspnea Scale (MMRC) On level ground I [...] disease) (HCC) 02/03/2010 Coronary artery disease No [place], CHF. No heart cath. Diverticulosis of colon [...] to 08/29/2022. Prior PFTS: SPIROMETRY BASELINE ONLY ([id number]) - ordered on 03/16/22 No textual results for order. SPIROMETRY BASELINE ONLY ([id number]) - ordered on 03/31/20 [facility] [address] [place] [address] Test Date: (more content not included)... Normal [facility] CT LUNG FOLLOWUP WO IVCONon 01-25-2025 CT LUNG FOLLOWUP WO IVCON * * *Final Report* * * DATE OF EXAM: Jan 25 2025 11:06AM [facility] 0561 - CT LUNG FOLLOWUP WO IVCON / PROCEDURE REASON: Lung nodule, < 6mm, high cancer risk * * * * Physician Interpretation * * * * EXAMINATION: CT LUNG FOLLOWUP WO IVCON CLINICAL HISTORY: Lung nodules Technique: Spiral CT acquisition of the chest from the thoracic inlet to the upper abdomen without contrast. MQ: CTLCS_6 Followup LDCT Patient characteristics: * Rovc-ha-Unfyb: 1955; Age at exam: 69 years * Gender: Female * Lung Disease: Asymptomatic (no signs or symptoms of lung disease) * Number of Pack Years: 38 * Current smoker (=0) or Number of Years since Quit: 15 * Ordering provider and NPI: MARICRUZ CAMP [id number] * Interpreting radiologist and NPI: Nicole [id number] Exam acquisition parameters: * Exam Date: 01/25/2025 11:06 AM * Site: [facility] * * CT System Dial Marker: Open Garden * CT System Model: Sensation * Tube [...] Recommendations: Followup LDCT in 6 months Reference: [employer]. Lung CT Screening Reporting and Data System (Lung-RADS). Available at: http://www.acr.org/Quality-Sa fety/Resources/LungRADS Supreme Court Justice: PAT Transcribe Date/Time: Jan 25 2025 11:45A Dictated by : VIDAL PULLIAM MD This examination was interpreted and the report reviewed and electronically signed by: VIDAL PULLIAM MD on Jan 25 2025 11:51AM EST [id number] Normal [facility] CT Lung parenchyma WO contra ston 01-25-2025 IMPRESSION: LungRADS category: 3 LungRADS modifier: None LungRADS 0 reason: n/a Recommendations: Followup LDCT in 6 months Reference: [employer]. Lung CT Screening Reporting and Data System (Lung-RADS). Available at: http://www.acr.org/Quality-Sa fety/Resources/LungRADS Supreme Court Justice: PAT Transcribe Date/Time: Jan 25 2025 11:45A Dictated by : VIDAL PULLIAM MD This examination was interpreted and the report reviewed and electronically signed by: VIDAL PULLIAM MD on Jan 25 2025 11:51AM [facility] DIVISION OF RADIOLOGY * * *Final Report* * * DATE OF EXAM: Jan 25 2025 11:06AM [facility] 0561 - CT LUNG FOLLOWUP [facility] / PROCEDURE REASON: Lung nodule, < 6mm, high cancer risk * * * * Physician Interpretation * * * * EXAMINATION: CT LUNG FOLLOWUP SHAUNA STERLING CLINICAL HISTORY: Lung nodules Technique: Spiral CT acquisition of the chest from the thoracic inlet to the upper abdomen without contrast. MQ: CTLCS_6 Followup LDCT Patient characteristics: * Fszt-hk-Eyohy: 1955; Age at exam: 69 years * Gender: Female * Lung Disease: Asymptomatic (no signs or symptoms of lung disease) * Number of Pack Years: 38 * Current smoker (=0) or Number of Years since Quit: 15 * Ordering provider and NPI: MARICRUZ CAMP [id number] * Interpreting radiologist and NPI: Nicole [id number] Exam acquisition parameters: * Exam Date: 01/25/2025 11:06 AM * Site: [facility] * * CT System Dial Marker: Siemens * CT System Model: Sensation * [...] opacities likely atelectasis. DIVISION OF RADIOLOGY Provider, [facility] - 01/25/2025 * * *Final Report* * * DATE OF EXAM: Jan 25 2025 11:06AM [facility] 0561 - CT LUNG FOLLOWUP [facility] / PROCEDURE REASON: Lung nodule, < 6mm, high cancer risk * * * * Physician Interpretation * * * * [facility]AMIN[facility]: [facility]: Lung nodules Technique: Spiral CT acquisition of the chest from the thoracic inlet to the upper abdomen without contrast. MQ: CTLCS_6 Followup LDCT Patient characteristics: * Kzop-tc-Tgnak: 1955; Age at exam: 69 years * Gender: Female * Lung Disease: Asymptomatic (no signs or symptoms of lung disease) * Number of Pack Years: 38 * Current smoker (=0) or Number of Years since Quit: 15 * Ordering provider and NPI: MARICRUZ CAMP [id number] * Interpreting radiologist and NPI: Nicole [id number] Exam acquisition parameters: * Exam Date: 01/25/2025 11:06 AM * Site: [facility] * * CT System Dial Marker: Open Garden * CT System Model: Sensation * Tube [...] Recommendations: Followup LDCT in 6 months Reference: [employer]. Lung CT Screening Reporting and Data System (Lung-RADS). Available at: http://www.acr.org/Quality-Sa fety/Resources/LungRADS Supreme Court Justice: PAT Transcribe Date/Time: Jan 25 2025 11:45A Dictated by : VIDAL PULLIAM MD This examination was interpreted and the report reviewed and electronically signed by: VIDAL PULLIAM MD on Jan 25 2025 11:51AM EST [facility] Radiology Study observation (narrative) [facility] CT Lung parenchyma WO contra stOrdered By: Ccf Provider on 01-25-2025 [facility] CNOVon 01-20-2025 CNOV Office Visit (FAMPWS ) RAJENDRA LUCERO ([id number]) 1955 F Date Time Provider Department 01/20/25 [...] is currently diet controlled Hair 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 Feels she is coping okay. 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 No heart cath. Diverticulosis of colon [...] hours as needed for wheezing/shortness of breath. ipcxxjpmhmi-jgnbetfei-venqvnk r (TRELEGY ELLIPTA) 200-62.5-25 mcg inhalation powder [...] kit, including (more content not included)... Normal [facility] Folate SerPl-ncon 01-21-20 25 Folate [Mass/Vol] 18.5 ng/mL Normal >4.7 [facility] Comment on above: Order Comment: Speckurt cook Type: BLOOD SPECIMENOrdering Facility: [facility] Address: [address] [place] [address] Performed By: #### 2 132-9, 2284-8 ####[facility] LABIA [id number] [place] [address] [place] Iron and Iron binding capaci [facility] 01-20-2025 Iron [Mass/Vol] 92 ug/dL Normal 41-186 [facility] Comment on above: Order Comment: Xiao cook Type: BLOOD SPECIMENOrdering Facility: [facility] Address: [address] [place] [address] Performed By: #### 3 051-0, 3024-7, 3016-3, 36232-1 ####[facility] LABIA [id number] [place] [address] [place] Iron binding capacity [Mass/Vol] 403 ug/dL High 232-386 [facility] Comment on above: Order Comment: Xiao cook Type: BLOOD SPECIMENOrdering Facility: [facility] Address: [address] [place] [address] Performed By: #### 3 051-0, 3024-7, 3016-3, 61521-2 ####[facility] LABCLIA [id number] [place] [id number] [place] Iron/TIBC [Molar ratio] 22.8 % Normal 15.0-57.0 [facility] Comment on above: Order Comment: Speci men Type: BLOOD SPECIMENOrdering Facility: [facility] Address: [address] [place] [address] Performed By: #### 3 051-0, 3024-7, 3016-3, 69352-3 ####[facility] LABCLIA [id number] [place] [id number] [place] T3Free SerPl-mCncon 01-21-20 25 Free T3 [Mass/Vol] 2.9 pg/mL Normal 2.3-4.1 [facility] Comment on above: Order Comment: Speci men Type: BLOOD SPECIMENOrdering Facility: [facility] Address: [address] [place] [address] Performed By: #### 3 051-0, 3024-7, 3016-3, 77327-3 ####[facility] LABCLIA [id number] [place] [id number] [place] T4 Free SerPl-mCncon 025 Free T4 [Mass/Vol] 0.9 ng/dL Normal 0.9-1.7 [facility] Comment on above: Order Comment: Speci men Type: BLOOD SPECIMENOrdering Facility: [facility] Address: [address] [place] [address] Performed By: #### 3 051-0, 3024-7, 3016-3, 48839-5 ####[facility] LABCLIA [id number] [place] [id number] [place] TSH SerPl-aCncon 01-20-2025 TSH Qn 2.860 m[IU]/L Normal 0.270-4.20 0 [facility] Comment on above: Order Comment: Speci men Type: BLOOD SPECIMENOrdering Facility: [facility] Address: [address] [place] [address] Performed By: #### 3 051-0, 3024-7, 3016-3, 92459-2 ####[facility] LABIA [id number] [place] [address] [place] Vit B12 SerPl-ncon 01-20- 025 Cobalamin (Vitamin B12) [Mass/Vol] 940 pg/mL Normal 232-1245 [facility] Comment on above: Order Comment: Speci men Type: BLOOD SPECIMENOrdering Facility: [facility] Address: [address] [place] [address] Performed By: #### 2 132-9, 2284-8 ####[facility] LABIA [id number] [place] [address] [place] CBC W Auto Differential pane l (Bld)on 01-13-2025 Basophils (Bld) [#/Vol] 0.06 10*3/uL Normal <0.11 [facility] Comment on above: Order Comment: Speci men Type: BLOOD SPECIMENOrdering Facility: [facility] Address: [address] [place] [address] Performed By: #### 5 7021-8 ####[facility] LABIA [id number] [address] [place] Basophils/100 WBC (Bld) 0.8 % Normal [facility] Comment on above: Order Comment: Speci men Type: BLOOD SPECIMENOrdering Facility: [facility] Address: [address] [place] [address] Performed By: #### 5 7021-8 ####[facility] LABIA [id number] [place] [address] [place] Differential cell count method Nom (Bld) Auto Normal [facility] Comment on above: Order Comment: Speci men Type: BLOOD SPECIMENOrdering Facility: [facility] Address: [address] [place] [address] Performed By: #### 5 7021-8 ####[facility] LABCLIA [id number] [facility] [address], [place] [address] [place] Eosinophils (Bld) [#/Vol] 0.20 10*3/uL Normal <0.46 [facility] Comment on above: Order Comment: Speci men Type: BLOOD SPECIMENOrdering Facility: [facility] Address: [address] [place] [address] Performed By: #### 5 7021-8 ####[facility] LABCLIA [id number] [facility] [address], [place] [address] [place] Eosinophils/100 WBC (Bld) 2.6 % Normal [facility] Comment on above: Order Comment: Speci men Type: BLOOD SPECIMENOrdering Facility: [facility] Address: [address] [place] [address] Performed By: #### 5 7021-8 ####[facility] LABCLIA [id number] [address], [place] [address] [place] Erythrocyte distribution width (RBC) [Ratio] 14.6 % Normal 11.5-15.0 [facility] Comment on above: Order Comment: Speci men Type: BLOOD SPECIMENOrdering Facility: [facility] Address: [address] [place] [address] Performed By: #### 5 7021-8 ####[facility] LABCLIA [id number] [address], [place] [address] [place] Hematocrit (Bld) [Volume fraction] 46.5 % High 36.0-46.0 [facility] Comment on above: Order Comment: Speci men Type: BLOOD SPECIMENOrdering Facility: [facility] Address: [address] [place] [address] Performed By: #### 5 7021-8 ####[facility] LABCLIA [id number] [address], [facility] [place] Hemoglobin (Bld) [Mass/Vol] 14.3 g/dL Normal 11.5-15.5 [facility] Comment on above: Order Comment: Speci men Type: BLOOD SPECIMENOrdering Facility: [facility] Address: [address] [place] [address] Performed By: #### 5 7021-8 ####[facility] LABCLIA [id number] [place] [id number] [place] Immature granulocytes (Bld) [#/Vol] 10*3/uL Normal <0.10 [facility] Comment on above: Order Comment: Speci men Type: BLOOD SPECIMENOrdering Facility: [facility] Address: [address] [place] [address] Performed By: #### 5 7021-8 ####[facility] LABCLIA [id number] [place] [address] [place] Immature granulocytes/100 WBC (Bld) 0.1 % Normal [facility] Comment on above: Order Comment: Speci men Type: BLOOD SPECIMENOrdering Facility: [facility] Address: [address] [place] [address] Performed By: #### 5 7021-8 ####[facility] LABCLIA [id number] [place] [address] [place] Lymphocytes (Bld) [#/Vol] 1.28 10*3/uL Normal 1.00-4.00 [facility] Comment on above: Order Comment: Speci men Type: BLOOD SPECIMENOrdering Facility: [facility] Address: [address] [place] [address] Performed By: #### 5 7021-8 ####[facility] LABCLIA [id number] [place] [address] [place] Lymphocytes/100 WBC (Bld) 16.9 % Normal [facility] Comment on above: Order Comment: Speci men Type: BLOOD SPECIMENOrdering Facility: [facility] Address: [address] [place] [address] Performed By: #### 5 7021-8 ####[facility] LABIA [id number] [place] [address] [place] MCH (RBC) [Entitic mass] 30.6 pg Normal 26.0-34.0 [facility] Comment on above: Order Comment: Speci men Type: BLOOD SPECIMENOrdering Facility: [facility] Address: [address] [place] [address] Performed By: #### 5 7021-8 ####[facility] LABIA [id number] [place] [address] [place] MCHC (RBC) [Mass/Vol] 30.8 g/dL Normal 30.5-36.0 [facility] Comment on above: Order Comment: Speci men Type: BLOOD SPECIMENOrdering Facility: [facility] Address: [address] [place] [address] Performed By: #### 5 7021-8 ####[facility] [id number] [place] [address] [place] MCV (RBC) [Entitic vol] 99.4 fL Normal 80.0-100.0 [facility] Comment on above: Order Comment: Speci men Type: BLOOD SPECIMENOrdering Facility: [facility] Address: [address] [place] [address] Performed By: #### 5 7021-8 ####[facility] [id number] [place] [address] [place] Monocytes (Bld) [#/Vol] 0.75 10*3/uL Normal <0.87 [facility] Comment on above: Order Comment: Speci men Type: BLOOD SPECIMENOrdering Facility: [facility] Address: [address] [place] [address] Performed By: #### 5 7021-8 ####[facility] [id number] [address] [id number] [address] [place] Monocytes/100 WBC (Bld) 9.9 % Normal [facility] Comment on above: Order Comment: Speci men Type: BLOOD SPECIMENOrdering Facility: [facility] Address: [address] [place] [address] Performed By: #### 5 7021-8 ####[facility] LABCLIA [id number] [place] [address] [place] Neutrophils (Bld) [#/Vol] 5.27 10*3/uL Normal 1.45-7.50 [facility] Comment on above: Order Comment: Speci men Type: BLOOD SPECIMENOrdering Facility: [facility] Address: [address] [place] [address] Performed By: #### 5 7021-8 ####[facility] LABCLIA [id number] [place] [address] [place] Neutrophils/100 WBC (Bld) 69.7 % Normal [facility] Comment on above: Order Comment: Speci men Type: BLOOD SPECIMENOrdering Facility: [facility] Address: [address] [place] [address] Performed By: #### 5 7021-8 ####[facility] LABCLIA [id number] [place] [address] [place] Nucleated RBC (Bld) [#/Vol] 10*3/uL Normal <0.01 [facility] Comment on above: Order Comment: Speci men Type: BLOOD SPECIMENOrdering Facility: [facility] Address: [address] [place] [address] Performed By: #### 5 7021-8 ####[facility] LABCLIA [id number] [place] [address] [place] Nucleated RBC/100 WBC (Bld) [Ratio] 0.0 /100 WBC Normal [facility] Comment on above: Order Comment: Speci men Type: BLOOD SPECIMENOrdering Facility: [facility] Address: [address] [place] [address] Performed By: #### 5 7021-8 ####[facility] LABCLIA [id number] [place] [id number] [place] Platelet mean volume (Bld) [Entitic vol] 11.6 fL Normal 9.0-12.7 [facility] Comment on above: Order Comment: Speci men Type: BLOOD SPECIMENOrdering Facility: [facility] Address: [address] [place] [address] Performed By: #### 5 7021-8 ####[facility] LABIA [id number] [place] [address] [place] Platelets (Bld) [#/Vol] 266 10*3/uL Normal 150-400 [facility] Comment on above: Order Comment: Speci men Type: BLOOD SPECIMENOrdering Facility: [facility] Address: [address] [place] [address] Performed By: #### 5 7021-8 ####[facility] LABIA [id number] [place] [address] [place] RBC (Bld) [#/Vol] 4.68 10*6/uL Normal 3.90-5.20 [facility] Comment on above: Order Comment: Speci men Type: BLOOD SPECIMENOrdering Facility: [facility] Address: [address] [place] [address] Performed By: #### 5 7021-8 ####[facility] LABIA [id number] [place] [id number] [place] WBC (Bld) [#/Vol] 7.57 10*3/uL Normal 3.70-11.00 [facility] Comment on above: Order Comment: Speci men Type: BLOOD SPECIMENOrdering Facility: [facility] Address: [address] [place] [address] Performed By: #### 5 7021-8 ####[facility] LABCLIA [id number] [address] [place] [address] [place] Comprehensive metabolic 2000 panelon 01-13-2025 Albumin [Mass/Vol] 4.6 g/dL Normal 3.9-4.9 [facility] Comment on above: Order Comment: Speci men Type: BLOOD SPECIMENOrdering Facility: [facility] Address: [address] [place], [place] [address] Performed By: #### 2 4323-8, 94776-5 ####[facility] LABCLIA [id number] [address] [place] [address] [place] ALP [Catalytic activity/Vol] 77 U/L Normal 34-123 [facility] Comment on above: Order Comment: Speci men Type: BLOOD SPECIMENOrdering Facility: [facility] Address: [address] [place] [address] Performed By: #### 2 4323-8, 16444-1 ####[facility] LABCLIA [id number] [address], [facility] [place] ALT [Catalytic activity/Vol] 27 U/L Normal 7-38 [facility] Comment on above: Order Comment: Speci men Type: BLOOD SPECIMENOrdering Facility: [facility] Address: [address] [place], [place] [address] Performed By: #### 2 4323-8, 76137-6 ####[facility] LABCLIA [id number] [address], [facility] [place] Anion gap [Moles/Vol] 12 mmol/L Normal 8-15 [facility] Comment on above: Order Comment: Speci men Type: BLOOD SPECIMENOrdering Facility: [facility] Address: [address] [place], [place] [address] Performed By: #### 2 4323-8, 46448-5 ####[facility] LABCLIA [id number] [address] [place] [address] [place] AST [Catalytic activity/Vol] 24 U/L Normal 13-35 [facility] Comment on above: Order Comment: Speci men Type: BLOOD SPECIMENOrdering Facility: [facility] Address: [address] [place] [address] Performed By: #### 2 4323-8, 57444-9 ####[facility] LABCLIA [id number] [place] [id number] [place] Bilirubin [Mass/Vol] 0.6 mg/dL Normal 0.2-1.3 [facility] Comment on above: Order Comment: Speci men Type: BLOOD SPECIMENOrdering Facility: [facility] Address: [address] [place] [address] Performed By: #### 2 4323-8, 06020-0 ####[facility] LABCLIA [id number] [place] [address] [place] Calcium [Mass/Vol] 10.0 mg/dL Normal 8.5-10.2 [facility] Comment on above: Order Comment: Speci men Type: BLOOD SPECIMENOrdering Facility: [facility] Address: [address] [place] [address] Performed By: #### 2 4323-8, 96008-3 ####[facility] LABCLIA [id number] [place] [address] [place] Chloride [Moles/Vol] 94 mmol/L Low 98-107 [facility] Comment on above: Order Comment: Speci men Type: BLOOD SPECIMENOrdering Facility: [facility] Address: [address] [place] [address] Performed By: #### 2 4323-8, 46253-9 ####[facility] LABCLIA [id number] [place] [address] [place] CO2 [Moles/Vol] 37 mmol/L High 22-30 [facility] Comment on above: Order Comment: Speci men Type: BLOOD SPECIMENOrdering Facility: [facility] Address: [address] [place] [id number] Performed By: #### 2 4323-8, 95188-6 ####[facility] [id number] [place] [id number] [place] Creatinine [Mass/Vol] 0.56 mg/dL Low 0.58-0.96 [facility] Comment on above: Order Comment: Xiao cook Type: BLOOD SPECIMENOrdering Facility: [facility] Address: [address] [place] [address] Performed By: #### 2 4323-8, 19616-5 ####[facility] [id number] [place] [address] [place] Creatinine and Glomerular filtration rate.predicted panel (S/P/Bld) 100 mL/min/1.73m??? Normal >=60 [facility] Comment on above: Order Comment: Xiao cook Type: BLOOD SPECIMENOrdering Facility: [facility] Address: [address] [place] [address] Result Comment: Marcia mated Glomerular Filtration Rate [...] actual GFR. Performed By: #### 2 4323-8, 88624-9 ####[facility] [id number] [place] [id number] [place] Glucose [Mass/Vol] 112 mg/dL High 74-99 [facility] Comment on above: Order Comment: Xiao cook Type: BLOOD SPECIMENOrdering Facility: [facility] Address: [address] [place] [address] Result Comment: The [place] Diabetes Association (ADA) provides guidance for cutoff [...] Standards of Medical Care in Diabetes 2016, [place] [employer]. Diabetes Care. 2016.39(Suppl 1). Performed By: #### 2 4323-8, 28322-3 ####[facility] LABCLIA [id number] [address] [address] [place] Potassium [Moles/Vol] 4.3 mmol/L Normal 3.7-5.1 [facility] Comment on above: Order Comment: Speci men Type: BLOOD SPECIMENOrdering Facility: [facility] Address: [address] [place] [address] Performed By: #### 2 4328, ####[facility] LABIA [id number] [address] [address] [place] Protein [Mass/Vol] 7.7 g/dL Normal 6.3-8.0 [facility] Comment on above: Order Comment: Speci men Type: BLOOD SPECIMENOrdering Facility: [facility] Address: [address] [place], [place] [address] Performed By: #### 2 4328, ####[facility] LABIA [id number] [facility] [address] [address] [place] Sodium [Moles/Vol] 143 mmol/L Normal 136-144 [facility] Comment on above: Order Comment: Speci men Type: BLOOD SPECIMENOrdering Facility: [facility] Address: [address] [place] [id number] Performed By: #### 2 4323-8, ####[facility] LABIA [id number] [address] [address] [place] Urea nitrogen [Mass/Vol] 12 mg/dL Normal 7-21 [facility] Comment on above: Order Comment: Xiao cook Type: BLOOD SPECIMENOrdering Facility: [facility] Address: [address] [place] [address] Performed By: #### 2 4323-8, 04330-2 ####[facility] LABCLIA [id number] [place] [id number] [place] HbA1c (Bld)on 01-13-2025 Average glucose Estimated from glycated hemoglobin (Bld) [Mass/Vol] 114 mg/dL Normal [facility] Comment on above: Order Comment: Xiao cook Type: BLOOD SPECIMENOrdering Facility: [facility] Address: [address] [place] [address] Result Comment: eAG: (Estimated average glucose) is a calculated value from HgbA1c and is ict sales representative of the average blood glucose level in the last 2-3 month period. Performed By: #### 5 5454-3 ####[facility] LABCLIA [id number] [place] [id number] [place] HbA1c (Bld) [Mass fraction] 5.6 % Normal 4.3-5.6 [facility] Comment on above: Order Comment: Xiao cook Type: BLOOD SPECIMENOrdering Facility: [facility] Address: [address] [place] [address] Result Comment: Amer [place] Diabetes Association guidelines indicate that patients with HgbA1c in the range 5.7-6.4% are at increased risk for development of diabetes, and intervention by lifestyle modification may be beneficial. HgbA1c greater or equal to 6.5% is considered diagnostic of diabetes. Performed By: #### 5 5454-3 ####[facility] LABCLIA [id number] [address] [address] [place] Lipid 1996 panelon 5 Cholesterol [Mass/Vol] 233 mg/dL High <200 [facility] Comment on above: Order Comment: Xiao ocok Type: BLOOD SPECIMENOrdering Facility: [facility] Address: [address] [place] [address] Result Comment: <200 mg/dL, Desirable 200-239 mg/dL, Borderline high >239 mg/dL, High Performed By: #### 2 4323-8, 98887-6 ####[facility] LABCLIA [id number] [facility] [id number] [address] [place] Cholesterol in HDL [Mass/Vol] 91 mg/dL Normal >39 [facility] Comment on above: Order Comment: Saniyai men Type: BLOOD SPECIMENOrdering Facility: [facility] Address: [address] [place] [address] Result Comment: 40-5 9 mg/dL, Acceptable >59 mg/dL, High: Negative risk factor for coronary heart disease <40 mg/dL, Low: Positive risk factor for coronary heart disease Performed By: #### 2 4323-8, 00059-7 ####[facility] LABCLIA [id number] [facility] [id number] [address] [place] Cholesterol in LDL [Mass/Vol] 128 mg/dL High <100 [facility] Comment on above: Order Comment: Xiao men Type: BLOOD SPECIMENOrdering Facility: [facility] Address: [address] [place] [address] Result Comment: <100 mg/dL, Optimal 100-129 mg/dL, Near optimal/above optimal 130-159 mg/dL, Borderline high 160-189 mg/dL, High >189 mg/dL, Very high Secondary prevention optimal LDL Cholesterol levels are recommended to be < 70 mg/dL Performed By: #### 2 4323-8, 10359-0 ####[facility] LABCLIA [id number] [facility] [id number] [place] [address] [place] Cholesterol in LDL/Cholesterol in HDL [Mass ratio] 1.41 {ratio} Normal <2.54 [facility] Comment on above: Order Comment: Saniyai men Type: BLOOD SPECIMENOrdering Facility: [facility] Address: [address] [place] [address] Result Comment: Refe bright: 1. National Cholesterol Education Program ATP III Guideline At-A-Glance Quick Desk Reference: National Heart, Lung, and Blood [place]. National Institutes of Health. 2001: NIH Publication No. 01-3305. 2. An International Atherosclerosis Society position paper: global recommendations for the management of dyslipidemia: executive summary, Atherosclerosis. 2014: 232(2):410-413. Performed By: #### 2 4323-8, 27188-5 ####[facility] LABCLIA [id number] [place] [address] [place] Cholesterol in VLDL [Mass/Vol] 14 mg/dL Normal <30 [facility] Comment on above: Order Comment: Saniyai men Type: BLOOD SPECIMENOrdering Facility: [facility] Address: [address] [place] [address] Performed By: #### 2 4323-8, 15003-7 ####[facility] LABIA [id number] [place] [address] [place] Cholesterol non HDL [Mass/Vol] 142 mg/dL High <130 [facility] Comment on above: Order Comment: Xiao cook Type: BLOOD SPECIMENOrdering Facility: [facility] Address: [address] [place] [address] Result Comment: <130 mg/dL, Optimal 130-159 mg/dL, Near optimal/above optimal 160-189 mg/dL, Borderline high 190-219 mg/dL, High >219 mg/dL, Very high Secondary prevention optimal non HDL Cholesterol levels are recommended to be <100 mg/dL Performed By: #### 2 4323-8, 95229-5 ####[facility] LABIA [id number] [place] [id number] [place] Cholesterol.total/Cho lesterol in HDL [Mass ratio] 2.56 {ratio} Normal <5.10 [facility] Comment on above: Order Comment: Saniyai men Type: BLOOD SPECIMENOrdering Facility: [facility] Address: [address] [place] [address] Performed By: #### 2 4323-8, 71748-1 ####[facility] LABCLIA [id number] [place] [address] [place] FASTING TIME 12 hrs Normal [facility] Comment on above: Order Comment: Speci men Type: BLOOD SPECIMENOrdering Facility: [facility] Address: [address] [place] [address] Performed By: #### 2 4323-8, 00251-1 ####[facility] LABIA [id number] [place] [address] [place] Triglyceride [Mass/Vol] 72 mg/dL Normal <150 [facility] Comment on above: Order Comment: Speci men Type: BLOOD SPECIMENOrdering Facility: [facility] Address: [address] [place] [address] Result Comment: <150 mg/dL, Normal 150-199 mg/dL, Borderline high 200-499 mg/dL, High >499 mg/dL, Very high Performed By: #### 2 4323-8, 35713-4 ####[facility] LABIA [id number] [place] [address] [place] CNOVon 12-25-2024 CNOV Office Visit (PULMWS ) RAJENDRA LUCERO ([id number]) 1955 F Date Time Provider Department 12/25/24 11:30 AM RAJENDRA GOODMAN PULMWS During your visit today, we recorded the following information about you: Pulse Respiration Blood pressure Weight 92/minute 20/minute 134/64 119.1 kg Rajendra Goodman, RESIDENCE LIFE COORDINATOR.FILTERS ASSEMBLER 12/25/2024 12:29 PM Signed Pulmonary Medicine Patients name: Rajendra Palumbo PCP: Phuc Martines DO CC: follow-up COPD HPI: Rajendra Lucero is a 69 year old female former 24-qvfl-bvxb smoker, quitting in 2008 with PMH significant [...] disease) (HCC) 02/03/2010 Coronary artery disease No [place], CHF. No heart cath. Diverticulosis of colon [...] ELLIPTA 100-62.5-25 mcg inhalation powder Generic drug: azmbimckmzw-tdbfgxhdb-hlztutg r USE 1 INHALATION DAILY INSTRUCTED triamcinolone [...] prior chest CT examinations is needed. Reference: [place] [employer]. Lung CT Screening Reporting and Data System (Lung-RADS). Available at: http://www.acr.org/Quality-Sa fety/Resources/LungRADS Supreme Court Justice: PAT Transcribe Date/Time: Oct 19 2024 11:21A Dictated by : VIDAL PULLIAM MD This examination was interpreted and the report reviewed and electronically signed by: VIDAL PULLIAM MD on Oct 19 2024 11:28AM EST Results-Findings * * *Final Report* * * DATE OF EXAM: Oct 19 2024 10:09AM [facility] 0562 - CT LUNG SCREEN WO IVCON / PROCEDURE REASON: Former cigarette smoker * * * * Physician Interpretation * * * * EXAMINATION: CHEST CT WITHOUT CONTRAST (LOW-DOSE CT LUNG CANCER SCREENING MICHAEL (more content not included)... Normal [facility] DBT Breast - bilateral scree [...] Manish Quintana M.D. Electronically signed on: 12/03/[address] Justice: SHAMEKA Transcrighazal Date/Time: Dec 03 2024 11:01A Dictated by: MANISH QUINTANA MD This examination was interpreted and the report reviewed and electronically signed by: MANISH QUINTANA MD on Dec 03 2024 6:47PM [facility] DIVISION OF RADIOLOGY * * *Final Report* * * DATE OF EXAM: Dec 03 2024 11:38AM [facility] 0582 - [facility] SCREENING W ASHLEY / PROCEDURE REASON: Encounter for screening mammogram for breast cancer * * * * Physician Interpretation * * * * RESULT: [facility] [address] [place] [address] #[id number] - [facility] SCREENING W ASHLEY HISTORY: 69 year-old [...] in either breast. DIVISION OF RADIOLOGY Provider, [facility] - 12/03/2024 * * *Final Report* * * DATE OF EXAM: Dec 03 2024 11:38AM [facility] 0582 - [facility] SCREENING W ASHLEY / PROCEDURE REASON: Encounter for screening mammogram for breast cancer * * * * Physician Interpretation * * * * RESULT: [place] [address] #[id number] - [facility] SCREENING W ASHLEY HISTORY: 69 year-old [...] Manish Quintana M.D. Electronically signed on: 12/03/[address] Justice: SHAMEKA Transcrighazal Date/Time: Dec 03 2024 11:01A Dictated by: MANISH QUINTANA MD This examination was interpreted and the report reviewed and electronically signed by: MANISH QUINTANA MD on Dec 03 2024 6:47PM EST [facility] Radiology Study observation (narrative) [facility] DBT Breast - bilateral scree ningOrdered By: Cccoleen Provider on 12-03-2024 [facility] ANUSHA SCREENING W TOMOon 12-03 [facility] SCREENING W ASHLEY * * *Final Report* * * DATE OF EXAM: Dec 03 2024 11:38AM [facility] 0582 - [facility] SCREENING W ASHLEY / PROCEDURE REASON: Encounter for screening mammogram for breast cancer * * * * Physician Interpretation * * * * RESULT: [place] [address] #[id number] - [facility] SCREENING W ASHLEY HISTORY: 69 [...] Manish Quintana M.D. Electronically signed on: 12/03/[address] Justice: SHAMEKA Fanrighazal Date/Time: Dec 03 2024 11:01A Dictated by: MANISH QUINTANA MD This examination was interpreted and the report reviewed and electronically signed by: MANISH QUINTANA MD on Dec 03 2024 6:47PM EST [id number] Normal [facility] CNOVon 10-19-2024 CNOV Office Visit (PULMWS ) RAJENDRA LUCERO ([id number]) 1955 F Date Time Provider Department 10/19/24 [...] which included preparing to see the patient, ikix-iv-cvsm patient care, completing clinical documentation, performing a medically appropriate examination, counseling and educating the patient/family/caregiver, ordering medications, tests, or procedures, communicating with other HCPs (not separately reported), independently interpreting results (not separately reported), communicating results to the patient/family/caregiver, and care coordination (not separately reported). Maricruz Camp, JAKI.[facility] October 19, 2024 10:28 AM History of [...] albuterol if feeling sick. Modified Medical Research [place] Dyspnea Scale (MMRC) I am too breathless [...] Medical Hi (more content not included)... Normal [facility] CT Chest for screening WO co ntraston 10-19-2024 IMPRESSION: LungRADS category: 0 LungRADS modifier: None LungRADS 0 reason: n/a Recommendations: Additional lung cancer screening CT images and/or comparison to prior chest CT examinations is needed. Reference: [place] [employer]. Lung CT Screening Reporting and Data System (Lung-RADS). Available at: http://www.acr.org/Quality-Sa fety/Resources/LungRADS Supreme Court Justice: PAT Transcribe Date/Time: Oct 19 2024 11:21A Dictated by : VIDAL PULLIAM MD This examination was interpreted and the report reviewed and electronically signed by: VIDAL PULLIAM MD on Oct 19 2024 11:28AM [facility] DIVISION OF RADIOLOGY * * *Final Report* * * DATE OF EXAM: Oct 19 2024 10:09AM [facility] 0562 - CT LUNG SCREEN WO [...] without contrast. MQ: CTLCS_6 Patient characteristics: * Fjpd-xv-Aflrp: 1955; Age at exam: 69 years * Gender: Female * Lung Disease: Asymptomatic (no signs or symptoms of lung disease) * Number of Pack Years: 38 * Current smoker (=0) or Number of Years since Quit: 15 * Ordering provider and NPI: MARICRUZ CAMP [id number] * Interpreting radiologist and NPI: Nicole [id number] Exam acquisition parameters: * Exam Date: 10/19/2024 10:09 AM * Site: [facility] * * CT System Dial Marker: Siemens * CT System Model: Sensation * [...] [* https://www.pettit-nhlbi.org/ca lcium/input.aspx] DIVISION OF RADIOLOGY Provider, [facility] - 10/19/2024 * * *Final Report* * * DATE OF EXAM: Oct 19 2024 10:09AM [facility] 0562 - CT LUNG SCREEN [facility] / PROCEDURE REASON: Former cigarette smoker * [...] without contrast. MQ: CTLCS_6 Patient characteristics: * Rmhw-hp-Tqeyt: 1955; Age at exam: 69 years * Gender: Female * Lung Disease: Asymptomatic (no signs or symptoms of lung disease) * Number of Pack Years: 38 * Current smoker (=0) or Number of Years since Quit: 15 * Ordering provider and NPI: MARICRUZ CAMP [id number] * Interpreting radiologist and NPI: Nicole [id number] Exam acquisition parameters: * Exam Date: 10/19/2024 10:09 AM * Site: [facility] * * CT System Dial Marker: Siemens * CT System Model: Sensation * [...] prior chest CT examinations is needed. Reference: [place] [employer]. Lung CT Screening Reporting and Data System (Lung-RADS). Available at: http://www.acr.org/Quality-Sa fety/Resources/LungRADS Supreme Court Justice: PAT Transcribe Date/Time: Oct 19 2024 11:21A Dictated by : VIDAL PULLIAM MD This examination was interpreted and the report reviewed and electronically signed by: VIDAL PULLIAM MD on Oct 19 2024 11:28AM EST [facility] Radiology Study observation (narrative) [facility] CT Chest for screening WO co ntrastOrdered By: Ccf Provider on 10-19-[address] [facility] [address] LUNG SCREEN WO IVCONon CT LUNG SCREEN WO IVCON * * *Final Report* * * DATE OF EXAM: Oct 19 2024 10:09AM [facility] 0562 - CT LUNG SCREEN WO [...] without contrast. MQ: CTLCS_6 Patient characteristics: * Hblq-rv-Vfvqk: 1955; Age at exam: 69 years * Gender: Female * Lung Disease: Asymptomatic (no signs or symptoms of lung disease) * Number of Pack Years: 38 * Current smoker (=0) or Number of Years since Quit: 15 * Ordering provider and NPI: MARICRUZ CAMP [id number] * Interpreting radiologist and NPI: Nicole [id number] Exam acquisition parameters: * Exam Date: 10/19/2024 10:09 AM * Site: [facility] * * CT System Dial Marker: Siemens * CT System Model: Sensation * [...] prior chest CT examinations is needed. Reference: [place] [employer]. Lung CT Screening Reporting and Data System (Lung-RADS). Available at: http://www.acr.org/Quality-Sa fety/Resources/LungRADS Supreme Court Justice: PSCB Transcribe Date/Time: Oct 19 2024 11:21A Dictated by : VIDAL PULLIAM MD This examination was interpreted and the report reviewed and electronically signed by: VIDAL PULLIAM MD on Oct 19 2024 11:28AM EST [id number] Normal [facility] ANUSHA SCREENINGon 09-17-2023 [facility] CBC W Auto Differential pane l (Bld)on 08-14-2023 Basophils (Bld) [#/Vol] 0.06 10*3/uL <0.11 k/uL [facility] Basophils/100 WBC (Bld) 0.8 % [facility] Differential cell count method Nom (Bld) Auto [facility] Eosinophils (Bld) [#/Vol] 0.17 10*3/uL <0.46 k/uL [facility] Eosinophils/100 WBC (Bld) 2.3 % [facility] Erythrocyte distribution width (RBC) [Ratio] 14.0 % 11.5 - 15.0 % [facility] Hematocrit (Bld) [Volume fraction] 45.6 % 36.0 - 46.0 % [facility] Hemoglobin (Bld) [Mass/Vol] 14.5 g/dL 11.5 - 15.5 g/dL [facility] Immature granulocytes (Bld) [#/Vol] 0.04 10*3/uL <0.10 k/uL [facility] Immature granulocytes/100 WBC (Bld) 0.5 % [facility] Lymphocytes (Bld) [#/Vol] 1.10 10*3/uL 1.00 - 4.00 k/uL [facility] Lymphocytes/100 WBC (Bld) 14.8 % [facility] MCH (RBC) [Entitic mass] 31.6 pg 26.0 - 34.0 pg [facility] MCHC (RBC) [Mass/Vol] 31.8 g/dL 30.5 - 36.0 g/dL [facility] MCV (RBC) [Entitic vol] 99.3 fL 80.0 - 100.0 fL [facility] Monocytes (Bld) [#/Vol] 0.61 10*3/uL <0.87 k/uL [facility] Monocytes/100 WBC (Bld) 8.2 % [facility] Neutrophils (Bld) [#/Vol] 5.45 10*3/uL 1.45 - 7.50 k/uL [facility] Neutrophils/100 WBC (Bld) 73.4 % [facility] Nucleated RBC (Bld) [#/Vol] <0.01 k/uL [facility] Nucleated RBC/100 WBC (Bld) [Ratio] 0.0 /100 WBC [facility] Platelet mean volume (Bld) [Entitic vol] 11.7 fL 9.0 - 12.7 fL [facility] Platelets (Bld) [#/Vol] 222 10*3/uL 150 - 400 k/uL [facility] RBC (Bld) [#/Vol] 4.59 10*6/uL 3.90 - 5.20 m/uL [facility] WBC (Bld) [#/Vol] 7.43 10*3/uL 3.70 - 11.00 k/uL [facility] OXIMETRY WITH AMBULATIONon 0 06-13-2023 [facility] US ABD SPLEENon 03-06-2023 [facility] No Panel Informationon 10-10 [facility] XR Chest PA and Lateralon IMPRESSION: Overall findings unchanged. Supreme Court Justice: PSCB Transcribe Date/Time: Oct 01 2022 5:09P Dictated by : MORAIMA CARDENAS MD This examination was interpreted and the report reviewed and electronically signed by: MORAIMA CARDENAS MD on Oct 01 2022 5:10PM [facility] DIVISION OF RADIOLOGY * * *Final Report* [...] tissues: Unremarkable. IMPRESSION IMPRESSION: Overall findings unchanged. Supreme Court Justice: PAT Transcribe Date/Time: Oct 01 2022 5:09P Dictated by : MORAIMA CARDENAS MD This examination was interpreted and the report reviewed and electronically signed by: MORAIMA CARDENAS MD on Oct 01 2022 5:10PM EST [facility] XR Chest PA and LateralOrder ed By: Ccf Provider on 10-01-2022 [facility] XR Chest PA and Lateralon Radiology Study observation (narrative) [facility] ANUSHA SCREENINGon 09-11-2022 [facility] US ABD SPLEENon 09-03-[address] [facility] [address] CHEST WO IVCONon 08-30-20 Radiology Result ACTIONABLE Abnormal [facility] OXIMETRY WITH AMBULATIONon 0 03-16-2022 [facility] XR Foot - right AP and Later al and obliqueon 01-10-2021 IMPRESSION: Mild deg enerative changes Supreme Court Justice: PAT Transcribe Date/Time: Jan 10 2021 11:21A [...] erosions. No fracture. DIVISION OF RADIOLOGY Provider, [facility] - 01/10/2021 * * *Final Report* [...] No fracture. IMPRESSION IMPRESSION: Mild degenerative changes Supreme Court Justice: [facility] Transcribe Date/Time: Jan 10 2021 11:21A Dictated by : ROXANNE MARTEL MD This examination was interpreted and the report reviewed and electronically signed by: ROXANNE MARTEL MD on Jan 10 2021 11:23AM EST [facility] Radiology Study observation (narrative) [facility] XR Foot - right AP and Later al and obliqueOrdered By: Ccf Provider on 01-10-2021 [facility] ANES Regina 09-10-2018 ANES POST HNO ID: [id number] thor: Cornelio Alatorre: AnesthesiologyAuthor Type: AnesthesiologistType: Anesthesia [...] 10, 2018 : 1:54 PM PAGER/CONTACT #: [phone] [facility] ANES PREOPon 09-10-2018 ANES PREOP HNO ID: [id number] thor: Ann-Marie Garciaervice: AnesthesiologyAuthor Type: AnesthesiologistType: Anesthesia [...] results:Hematocrit 46.7 02/01/2017Potassium 4.0 05/02/2018ANES DOS/PREOP NOTE:Vitals: [id number]: 146/83Pulse: 91Resp: 16Temp: (!) 63 ?C (145.4 ?F)SpO2: 94%Weight: 116.1 kg (256 lb)Height: 162.6 cm (5' 4)ACTIVE PROBLEM LISTLeiomyoma of Uterus, UnspecifiedOBESITYEssential HypertensionPAIN FLANKIrritable Bowel SyndromeCopd (Chronic Obstructive Pulmonary Disease) ([facility])HypoxemiaFormer SmokerObstructive Sleep ApneaWell Adult ExamChronic Obstructive Pulmonary Disease ([facility])Obesity, Class III, BMI >= 40 (morbid obesity) E66.01Oxygen DependentAcute Bronchitis With Chronic Obstructive Pulmonary Disease (Copd) ([facility])Impaired Fasting GlucoseScreening for Colon CancerPAST MEDICAL HISTORYDiagnosis Date- COPD (chronic obstructive pulmonary disease) ([facility]) 02/03/2010- Coronary artery disease No [place], CHF. No heart cath.- Diverticulosis of colon (without mention of hemorrhage)- Essential hypertension, benign- Fibrocystic breast- Former smoker- Internal hemorrhoids without mention of complication- Leiomyoma of uterus, unspecified- Obstructive sleep apnea Mild. Not prescribed CPAP, only 2L nasal O2.PAST SURGICAL HISTORYProcedure Laterality Date- BREAST LUMPECTOMY HX Right 1997- COLONOSCOP W/ OR W/O [facility] SPEC 08/27/08 repeat due 2017- [...] to Encounter:Lactobacillus acidophilus (PROBIOTIC ORAL) Take by mouth.vqthidbwxmn-vnqjqadpc-a ilanter (TRELEGY ELLIPTA) 100-62.5-25 mcg dsdvInhale 1 Puff as instructed once daily.NYAMYC powder APPLY 1 APPLICATION TO AFFECTED AREA FOUR TIMES A DAY(Patient taking differently: prn)triamterene-hydrochloroth iazide 37.5-25 mg per capsule TAKE 1 CAPSULEDAILYCOMPOUNDED PRESCRIPTION Please do nocturnal oximetry on 2 L. DME: [facility].ipratropium-albut alan (DUONEB) 0.5 mg-3 mg(2.5 mg [...] September 10, 2018 : 11:06 AM CSN: [id number] Normal [facility] HISTORY PHYSICALon 8 HISTORY PHYSICAL HNO ID: [id number] thor: Margot Boudreaux [facility] HospitalanService: General SurgeryAuthor Type: PhysicianType: HANDPFiled: 09/10/2018 10:34 AMNote Text:?HISTORY AND PHYSICAL?Rajendra Sahni Fvtcet1955?REFERRING PHYSICIAN: Phuc Martines, DO?CHIEF COMPLAINT: Consult (Consult [...] COPD (chronic obstructive pulmonary disease) ([facility]) 02/03/2010- Coronary artery disease ?? No [place], CHF. No heart cath.- Diverticulosis of colon [...] Outpatient Prescriptions:Lactobacillus acidophilus (PROBIOTIC ORAL) Take by mouth.jlipeuenhhv-xlyaxturl-o ilanter (TRELEGY ELLIPTA) 100-62.5-25 mcg dsdvInhale 1 Puff as instructed once daily.NYAMYC powder APPLY 1 APPLICATION TO AFFECTED AREA FOUR TIMES A DAYtriamterene-hydrochlorothi azide 37.5-25 mg per capsule TAKE 1 CAPSULEDAILYCOMPOUNDED PRESCRIPTION Please do nocturnal oximetry on 2 L. DME: [facility].ipratropium-albut alan (DUONEB) 0.5 mg-3 mg(2.5 mg [...] notes Sx?pelvic floor prolapse, recommend evaluation by REALTIME REPORTER-patient states hasappt in September. COPD, on oxygen [...] have been communicated to Dr. Martines via [employer] medicalrecord. This note will be forwarded to Dr. Phuc Martines, DO.Return to Clinic: The patient is instructed to follow-up with me 1 weekpost operatively.? Basia Ely PA-C [facility] NURSING PROGon 09-10-2018 Protein mass conc HNO ID: [id number] Author: Kajal (Rn) HERRERA Rodney Service: Nursing Author Type: Registered Nurse Type: Nursing Progress Note Filed: 09/10/2018 1:11 PM Note Text: 1245 pt to PACU. TRIANA TCx4. Denies pain. PIV DANDI. VSS no s/sx of distress. [facility] PT EDon 09-10-2018 PT ED HNO ID: [id number] thor: Sola Velazquez, RNService: (none)Author Type: Registered [...] By: Sola Velazquez RN, BSN [facility] PT ED HNO ID: [id number] thor: LAITH De Rnervice: NursingAuthor Type: Registered NurseType: Patient EducationFiled: 09/10/2018 11:05 AMNote Text:PRE OP LEARNING ASSESSMENTPROCEDURE/SURGERY: GI PROCEDURES: ColonoscopyREADINESS TO LEARNCOGNITIVE ABILITY: Alert and orientedMOTIVATION TO LEARN: InterestedFAMILY SUPPORT: High - Very involved in pt carePATIENT LEARNS BEST BY: Verbal InstructionFACTORS AFFECTING LEARNING: NonePHYSICAL LIMITATIONS AFFECTING LEARNING: NoneElectronically Signed By: Roni Bailey RN [facility] NURSING PROGon 09-09-2018 Protein mass conc HNO ID: [id number] thor: LAITH Landrum Rnervice: NursingAuthor Type: Registered [...] Considerations:N/AChart Check:Hieu Waters RNNovember 2017 9:58 AM [facility] HISTORY PHYSICALon HISTORY PHYSICAL HNO ID: [id number] thor: Dante Goncalves Pa-C: (none)Author Type: Physician AssistantType: HANDPFiled: 09/05/2018 9:59 AMNote Text:HISTORY AND PHYSICAL EXAMINATIONSERVICE DATE: 09/05/2018SERVICE TIME: 9:20 AMPRISELECT SPECIALTY HOSPITAL CARE PHYSICIAN: TRAVIS Falk FOR VISIT:Rajendra Lucero [...] disease) (HCC) 02/03/2010- Coronary artery disease No [place], CHF. No heart cath.- Diverticulosis of colon (without mention of hemorrhage)- Essential hypertension, benign- Fibrocystic breast- Former smoker- Internal hemorrhoids without mention of complication- Leiomyoma of uterus, unspecified- Obstructive sleep apnea Mild. Not prescribed CPAP, only 2L nasal O2.PAST SURGICAL HISTORYProcedure Laterality Date- BREAST LUMPECTOMY HX Right 1997- COLONOSCOP W/ OR W/O [facility] SPEC 08/27/08 repeat due 2017- [...] acidophilus (PROBIOTIC ORAL) Take by mouth. Taking Bpnbrsbzdkwlhq-unhjwpcaq-yawy nter (TRELEGY ELLIPTA) 100-62.5-25 mcg dsdvInhale 1 [...] do nocturnal oximetry on 2 L. DME: [facility].Patient not taking: Reported on 09/05/2018 Not TakingCOMPOUNDED PRESCRIPTION Please perform nocturnal oximetry on 2 lpm O2.DX: Severe COPD, chronic hypoxemic respiratory failurePatient not taking: Reported on 09/05/2018 Not TakingNo medication comments found.ALLERGIESNo Known AllergiesREVIEW OF SYSTEMS:PAIN ASSESSMENT:General: No weight loss, malaise or fevers.Neuro: No history of TIA's, stroke, PE TEACHER tumor, impaired sensorium,hemiplegia, paraplegia or quadraplegia. No [...] requiring dialysis. Negative for dysuria, hematuria,urgency, or frequency.REALTIME REPORTER: Negative for abnormal vaginal bleeding, abnormal vaginal [...] recent labsMost recent EKGMost recent EchoAll in [facility] nt has the following medical conditionsHTN- [...] 05, 2018 : 9:32 AM PAGER/CONTACT #: [facility] HOSP 08-27-2018 HOSP Patient:Linwood Lucero KMRN: Height:5' 4.5(1.638 m)Weight:256 lb 1.6 oz (116.166 kg)Outpatient Medications as of 09/10/18:Lactobacillus acidophilus (PROBIOTIC ORAL)ggxljhtvzjz-heznlcvvm-sw lanter (TRELEGY ELLIPTA) 100-62.5-25 mcg dsdvNYAMYC powdertriamterene-hydrochloro [...] chronic obstructive pulmonary disease (COPD) ([facility])[J44.0, J20.9]Impaired fasting glucose [R73.01]Screening for colon cancer [Z12.11]Allergies:No Known AllergiesDate Verified:09/10/18Lab ValuesNo results within the last 30 days for the following basenames: K,HCTProgress Notes ([facility]):Sridevi Dickerson RN 08/30/2018 9:50 AM Qbeelq41 year old female here for INACTIVATED INFLUENZA VACCINE.6093-2186 SeasonPatient is identified by name and date of : Yes [] CONTRAINDICATIONS color enhancedsectionAge less than 6 months? NoAllergy to eggs, chicken, chicken feathers, or chicken dander? NoAllergy to thimerosal (a preservative) or formaldehyde, gelatin? NoHistory of severe reaction to any vaccine component or a previous dose ofinfluenza vaccination? NoHistory of Guillain-Templeton Syndrome within 6 weeks after a previous [...] information sheet given? YesSee immunization activity in [facility] for details of immunizations adminsteredtoday.Patient age: [age] year old For The 6098-1073 Flu Season6-35 months old: Fluzone 0.25 ml [...] second dosein one months time.Previous VersionProgress Notes ([facility]):Teodoro Bower 08/27/2018 9:33 AM [id number] [place] [address]IA unless told otherwise. Dr Galvan, can you please reviewthis patients information . Thank you Teodoro Trinityirina Sathish 08/27/2018 2:59 PM Signedleft message for patient to call back so we can schedule her procedure in ahospital setting Teodoroliliana Reyesyevgeniy Sathish 08/27/2018 3:54 PM [id number] [place] Bell Teodoro WinnfieldRashadirina Winnfield 08/28/2018 1:22 PM [id number] [place] Jenkins [facility] Vital Signs Date Time Vital Sign Value Performing Clinician Facility 07-30-2025 08:01-0400 Body height 162.[address] Phuc Martines DO Work Phone: [facility] 07-30-2025 08:01-0400 Body mass index (BMI) [Ratio] 41.5 kg/m2 Dr. Phuc Martines DO Work Phone: [facility] 07-30-2025 08:01-0400 Body weight 109.[address] Phuc Martines DO Work Phone: [facility] 07-30-2025 08:01-0400 Diastolic blood pressure 82 mm[Hg] Dr. Phuc Martines DO Work Phone: [facility] 07-30-2025 08:01-0400 Heart rate 55 /min Dr. Phuc Martines DO Work Phone: 8(011)340-658813 [place] [address] 07-30-2025 08:01-0400 Inhaled oxygen flow rate 3 L/min Dr. Phuc Martines DO Work Phone: 3(558)435-199713 [place] [address] 07-30-2025 08:01-0400 Respiratory rate 20 /min Dr. Phuc Martines DO Work Phone: 0(687)375-149413 [place] [address] 07-30-2025 08:01-0400 SaO2% (BldA) [Mass fraction] 91 % Dr. Phuc Martines DO Work Phone: 9(713)088-430413 [place] [address] 07-30-2025 08:01-0400 Systolic blood pressure 143 mm[Hg] Dr. Phuc Martines DO Work Phone: 3(894)704-917813 [place] [address] 06-24-2025 11:01-0400 Body height 162.[address] Phuc Martines DO Work Phone: 1(694)168-776013 [place] [address] 06-24-2025 11:01-0400 Body weight 115.[address] Phuc Martines DO Work Phone: 9(976)164-762813 [place] [address] 06-23-2025 08:03-0400 Body mass index (BMI) [Ratio] 43.7 kg/m2 Dr. Phuc Martines DO Work Phone: 2(707)912-328713 [place] [address] 06-08-2025 14:44-0400 Body height 162.[address] Phuc Martines DO Work Phone: 3(064)286-771713 [place] [address] 06-08-2025 14:44-0400 Body mass index (BMI) [Ratio] 43.7 kg/m2 Dr. Phuc Martines DO Work Phone: 2(266)094-772813 [place] [address] 06-08-2025 14:44-0400 Body weight 115.[address] Phuc Martines DO Work Phone: 3(955)792-779213 [place] [address] 06-08-2025 14:44-0400 Diastolic blood pressure 58 mm[Hg] Dr. Phuc Martines DO Work Phone: 5(599)450-300413 [place] [address] 06-08-2025 14:44-0400 Heart rate 66 /min Dr. hPuc Martines DO Work Phone: 1(112)560-762313 [place] [address] 06-08-2025 14:44-0400 Inhaled oxygen flow rate 3.5 L/min Dr. Phuc Martines DO Work Phone: 6(752)851-640013 [place] [address] 06-08-2025 14:44-0400 Respiratory rate 18 /min Dr. Phuc Martines DO Work Phone: 4(231)038-080113 [place] [address] 06-08-2025 14:44-0400 SaO2% (BldA) [Mass fraction] 91 % Dr. Phuc Martines DO Work Phone: 4(402)489-188413 [place] [address] 06-08-2025 14:44-0400 Systolic blood pressure 118 mm[Hg] Dr. Phuc Martines DO Work Phone: 2(978)786-927413 [place] [address] 05-17-2025 12:18-0400 Body temperature 98.3 [degF] Dr. Phuc Martines DO Work Phone: 9(049)967-881813 [place] [address] 05-17-2025 12:18-0400 Diastolic blood pressure 62 mm[Hg] Dr. Phuc Martines DO Work Phone: 6(073)910-646313 [place] [address] 05-17-2025 12:18-0400 Heart rate 68 /min Dr. Phuc Martines DO Work Phone: 8(020)947-940213 [place] [address] 05-17-2025 12:18-0400 Inhaled oxygen flow rate 6 L/min Dr. Phuc Martines DO Work Phone: 0(546)488-759213 [place] [address] 05-17-2025 12:18-0400 Respiratory rate 18 /min Dr. Phuc Martines DO Work Phone: 5(471)597-793713 [place] [address] 05-17-2025 12:18-0400 SaO2% (BldA) [Mass fraction] 94 % Dr. Phuc Martines DO Work Phone: 2(444)741-369313 [place] [address] 05-17-2025 12:18-0400 Systolic blood pressure 122 mm[Hg] Dr. Phuc Martines DO Work Phone: 7(616)633-404613 [place] [address] 05-17-2025 02:41-0400 Inhaled oxygen concentration 35 % Dr. Phuc Martines DO Work Phone: 3(534)457-597313 [place] [address] 05-14-2025 10:31-0400 Body height 162.[address] Phuc Martines DO Work Phone: 1(454)269-182413 [place] [address] 05-14-2025 10:31-0400 Body weight 118.[address] Phuc Martines DO Work Phone: 0(914)047-190513 [place] [address] 05-13-2025 19:53-0400 Body mass index (BMI) [Ratio] 45 kg/m2 Dr. Phuc Martines DO Work Phone: 8(386)977-177313 [place] [address] 05-13-2025 19:00-0400 Diastolic blood pressure 64 mm[Hg] Dr. Phuc Martines DO Work Phone: 0(713)907-699213 [place] [address] 05-13-2025 19:00-0400 Heart rate 97 /min Dr. Phuc Martines DO Work Phone: 2(589)401-227913 [place] [address] 05-13-2025 19:00-0400 Inhaled oxygen flow rate 10 L/min Dr. Phuc Martines DO Work Phone: 5(450)050-181113 [place] [address] 05-13-2025 19:00-0400 Respiratory rate 19 /min Dr. Phuc Martines DO Work Phone: 7(561)977-259613 [place] [address] 05-13-2025 19:00-0400 SaO2% (BldA) [Mass fraction] 91 % Dr. Phuc Martines DO Work Phone: 2(806)582-612813 [place] [address] 05-13-2025 19:00-0400 Systolic blood pressure 128 mm[Hg] Dr. Phuc Martines DO Work Phone: 2(300)593-598813 [place] [address] 05-13-2025 18:53-0400 Body temperature 98.2 [degF] Dr. Phuc Martines DO Work Phone: 1(060)649-037613 [place] [address] 05-13-2025 16:00-0400 Diastolic blood pressure 62 mm[Hg] Dr. Phuc Martines DO Work Phone: 7(660)559-866968 [place] [address] 05-13-2025 16:00-0400 Heart rate 109 /min Dr. Phuc Martines DO Work Phone: 3(534)285-412913 [place] [address] 05-13-2025 16:00-0400 Respiratory rate 27 /min Dr. Phuc Martines DO Work Phone: 9(863)938-586313 [place] [address] 05-13-2025 16:00-0400 SaO2% (BldA) [Mass fraction] 90 % Dr. Phuc Martines DO Work Phone: 1(388)411-705113 [place] [address] 05-13-2025 16:00-0400 Systolic blood pressure 130 mm[Hg] Dr. Phuc Martines DO Work Phone: 3(194)075-779713 [place] [address] 05-13-2025 13:56-0400 Inhaled oxygen concentration 40 % Dr. Phuc Martines DO Work Phone: 7(163)055-664813 [place] [address] 05-13-2025 13:10-0400 Body height 162.[address] Phuc Martines DO Work Phone: 2(867)729-151613 [place] [address] 05-13-2025 13:10-0400 Body mass index (BMI) [Ratio] 44.8 kg/m2 Dr. Phuc Martines DO Work Phone: 3(404)859-040813 [place] [address] 05-13-2025 13:10-0400 Body temperature 98.7 [degF] Dr. Phuc Martines DO Work Phone: 5(764)266-853113 [place] [address] 05-13-2025 13:10-0400 Body weight 118.[address] Phuc Martines DO Work Phone: 5(094)454-014213 [place] [address] 05-13-2025 13:10-0400 Inhaled oxygen flow rate 3 L/min Dr. Phuc Martines DO Work Phone: 7(008)716-571713 [place] [address] 05-12-2025 09:34-0400 Body height 162.6 cm Jaden Newton MD Work Phone: [facility] 05-12-2025 09:34-0400 Body mass index (BMI) [Ratio] 44.63 kg/m2 Jaden Newton MD Work Phone: [facility] 05-12-2025 09:34-0400 Body weight 117.94 kg Jaden Newton MD Work Phone: [facility] 05-12-2025 09:34-0400 Diastolic blood pressure 70 mm[Hg] Jaden Newton MD Work Phone: [facility] 05-12-2025 09:34-0400 Heart rate 65 /min Jaden Newton MD Work Phone: [facility] 05-12-2025 09:34-0400 SaO2% (BldA) [Mass fraction] 78 % Jaden Newton MD Work Phone: [facility] Comment on above: On oxygen 05-12-2025 09:34-0400 Systolic blood pressure 110 mm[Hg] Jaden Newton MD Work Phone: [facility] 05-11-2025 14:32-0400 SaO2% (BldA) [Mass fraction] 88 % Sofi Garcia PA-C Work Phone: [facility] 05-11-2025 11:29-0400 Body mass index (BMI) [Ratio] 44.63 kg/m2 Sofi Garcia PA-C Work Phone: [facility] 05-11-2025 11:29-0400 Body temperature 99.7 [degF] Sofi Garcia PA-C Work Phone: [facility] 05-11-2025 11:29-0400 Body weight 117.94 kg Sofi Garcia PA-C Work Phone: [facility] 05-11-2025 11:29-0400 Diastolic blood pressure 70 mm[Hg] Sofi Garcia PA-C Work Phone: [facility] 05-11-2025 11:29-0400 Heart rate 76 /min Sofi Garcia PA-C Work Phone: [facility] 05-11-2025 11:29-0400 Respiratory rate 20 /min Sofi Garcia PA-C Work Phone: 9(786)335-967837 [place] [address] 05-11-2025 11:29-0400 Systolic blood pressure 110 mm[Hg] Sofi Garcia PA-C Work Phone: 5(129)553-777337 [place] [address] 05-07-2025 13:37-0400 Body height 162.[address] Phuc Martines DO Work Phone: 2(636)539-745913 [place] [address] 05-07-2025 13:37-0400 Body mass index (BMI) [Ratio] 44.4 kg/m2 Dr. Phuc Martines DO Work Phone: 2(352)295-980613 [place] [address] 05-07-2025 13:37-0400 Body weight 117.[address] Phuc Martines DO Work Phone: 9(897)677-397213 [place] [address] 05-07-2025 13:37-0400 Diastolic blood pressure 65 mm[Hg] Dr. Phuc Martines DO Work Phone: 8(623)848-875413 [place] [address] 05-07-2025 13:37-0400 Heart rate 75 /min Dr. Phuc Martines DO Work Phone: 2(514)774-786413 [place] [address] 05-07-2025 13:37-0400 Inhaled oxygen flow rate 2 L/min Dr. Phuc Martines DO Work Phone: 6(667)424-396313 [place] [address] 05-07-2025 13:37-0400 Respiratory rate 20 /min Dr. Phuc Martines DO Work Phone: 5(693)630-442513 [place] [address] 05-07-2025 13:37-0400 SaO2% (BldA) [Mass fraction] 82 % Dr. Phuc Martines DO Work Phone: 3(616)632-050913 [place] [address] 05-07-2025 13:37-0400 Systolic blood pressure 101 mm[Hg] Dr. Phuc Martines DO Work Phone: 8(494)975-758213 [place] [address] 04-27-2025 14:20-0400 Heart rate 90 /min Dr. Phuc Martines DO Work Phone: 9(812)637-919313 [place] [address] 04-27-2025 14:20-0400 Respiratory rate 18 /min Dr. Phuc Martines DO Work Phone: 4(677)786-746968 [place] [address] 04-27-2025 11:43-0400 Body temperature 98.6 [degF] Dr. Phuc Martines DO Work Phone: 8(900)294-378013 [place] [address] 04-27-2025 11:43-0400 Diastolic blood pressure 53 mm[Hg] Dr. Phuc Martines DO Work Phone: 5(685)994-428813 [place] [address] 04-27-2025 11:43-0400 Inhaled oxygen flow rate 5 L/min Dr. Phuc Martines DO Work Phone: 0(608)355-847313 [place] [address] 04-27-2025 11:43-0400 SaO2% (BldA) [Mass fraction] 95 % Dr. Phuc Martines DO Work Phone: 4(753)542-080613 [place] [address] 04-27-2025 11:43-0400 Systolic blood pressure 110 mm[Hg] Dr. Phuc Martines DO Work Phone: 9(987)590-233313 [place] [address] 04-27-2025 04:35-0400 Body mass index (BMI) [Ratio] 44.5 kg/m2 Dr. Phuc Martines DO Work Phone: 7(195)905-094313 [place] [address] 04-27-2025 04:35-0400 Body weight 117.[address] Phuc Martines DO Work Phone: 3(305)913-058613 [place] [address] 04-23-2025 22:47-0400 Body height 162.[address] Phuc Martines DO Work Phone: 5(713)789-061513 [place] [address] 04-23-2025 22:02-0400 Diastolic blood pressure 74 mm[Hg] Dr. Phuc Martines DO Work Phone: 3(001)583-178513 [place] [address] 04-23-2025 22:02-0400 Heart rate 127 /min Dr. Phuc Martines DO Work Phone: 2(239)170-669713 [place] [address] 04-23-2025 22:02-0400 Respiratory rate 24 /min Dr. Phuc Martines DO Work Phone: 1(737)745-172513 [place] [address] 04-23-2025 22:02-0400 SaO2% (BldA) [Mass fraction] 94 % Dr. Phuc Martines DO Work Phone: [facility] 04-23-2025 22:02-0400 Systolic blood pressure 140 mm[Hg] Dr. Phuc Martines DO Work Phone: 3(404)844-316068 [place] [address] 04-23-2025 21:58-0400 Body temperature 98.6 [degF] Dr. Phuc Martines DO Work Phone: 5(323)633-029268 [place] [address] 04-23-2025 21:00-0400 Inhaled oxygen flow rate 3.5 L/min Dr. Phuc Martines DO Work Phone: 4(917)133-320413 [place] [address] 04-23-2025 16:18-0400 Body height 162.[address] Phuc Martines DO Work Phone: 5(885)119-598613 [place] [address] 04-23-2025 16:18-0400 Body mass index (BMI) [Ratio] 43.7 kg/m2 Dr. Phuc Martines DO Work Phone: 4(968)529-237868 [place] [address] 04-23-2025 16:18-0400 Body weight 115.[address] Phuc Martines DO Work Phone: 5(169)345-642568 [place] [address] 04-23-2025 14:59-0400 Body mass index (BMI) [Ratio] 43.98 kg/m2 Tyra Carson APRN.FILTERS ASSEMBLER Work Phone: [facility] 04-23-2025 14:59-0400 Body weight 116.21 kg Tyra Meena RESIDENCE LIFE COORDINATOR.FILTERS ASSEMBLER Work Phone: [facility] 04-23-2025 14:59-0400 Diastolic blood pressure 62 mm[Hg] Tyra Meena RESIDENCE LIFE COORDINATOR.FILTERS ASSEMBLER Work Phone: [facility] 04-23-2025 14:59-0400 Heart rate 129 /min Tyra Meena RESIDENCE LIFE COORDINATOR.FILTERS ASSEMBLER Work Phone: [facility] 04-23-2025 14:59-0400 Respiratory rate 20 /min Tyra Meena RESIDENCE LIFE COORDINATOR.FILTERS ASSEMBLER Work Phone: [facility] 04-23-2025 14:59-0400 SaO2% (BldA) [Mass fraction] 92 % Tyra Carson APRN.FILTERS ASSEMBLER Work Phone: [facility] 04-23-2025 14:59-0400 Systolic blood pressure 122 mm[Hg] Tyra Carson APRN.FILTERS ASSEMBLER Work Phone: [facility] 04-20-2025 09:48-0400 Body mass index (BMI) [Ratio] 44.27 kg/m2 Damon Eugene APRN.FILTERS ASSEMBLER Work Phone: [facility] 04-20-2025 09:48-0400 Body temperature 98.4 [degF] Damon Eugene APRN.FILTERS ASSEMBLER Work Phone: [facility] 04-20-2025 09:48-0400 Body weight 117 kg Damon Eugene APRN.FILTERS ASSEMBLER Work Phone: [facility] 04-20-2025 09:48-0400 Diastolic blood pressure 80 mm[Hg] Damon Eugene APRN.FILTERS ASSEMBLER Work Phone: [facility] 04-20-2025 09:48-0400 Heart rate 94 /min Damon Eugene APRN.FILTERS ASSEMBLER Work Phone: [facility] 04-20-2025 09:48-0400 Respiratory rate 18 /min Damon Eugene APRN.FILTERS ASSEMBLER Work Phone: [facility] 04-20-2025 09:48-0400 SaO2% (BldA) [Mass fraction] 91 % Damon Eugene APRN.FILTERS ASSEMBLER Work Phone: [facility] 04-20-2025 09:48-0400 Systolic blood pressure 132 mm[Hg] Damon Eugene APRN.FILTERS ASSEMBLER Work Phone: [facility] 03-31-2025 12:52-0400 Body mass index (BMI) [Ratio] 45.08 kg/m2 Janette Damon APRN.FILTERS ASSEMBLER Work Phone: [facility] 03-31-2025 12:52-0400 Body weight 119.11 kg Janette Podlogar RESIDENCE LIFE COORDINATOR.FILTERS ASSEMBLER Work Phone: [facility] 03-31-2025 12:52-0400 Diastolic blood pressure 82 mm[Hg] Janette Podlogar RESIDENCE LIFE COORDINATOR.FILTERS ASSEMBLER Work Phone: [facility] 03-31-2025 12:52-0400 Heart rate 91 /min Janette Podlogar RESIDENCE LIFE COORDINATOR.FILTERS ASSEMBLER Work Phone: [facility] 03-31-2025 12:52-0400 Respiratory rate 18 /min Janette Podlogar RESIDENCE LIFE COORDINATOR.FILTERS ASSEMBLER Work Phone: [facility] 03-31-2025 12:52-0400 SaO2% (BldA) [Mass fraction] 92 % Janette Podlogar RESIDENCE LIFE COORDINATOR.FILTERS ASSEMBLER Work Phone: [facility] Comment on above: 3LPM 03-31-2025 12:52-0400 Systolic blood pressure 124 mm[Hg] Janette Podlogar RESIDENCE LIFE COORDINATOR.FILTERS ASSEMBLER Work Phone: [facility] 03-30-2025 11:28-0400 Body height 162.[address] Phuc Martines DO Work Phone: [facility] 03-30-2025 11:28-0400 Body mass index (BMI) [Ratio] 45.1 kg/m2 Dr. Phuc Martines DO Work Phone: [facility] 03-30-2025 11:28-0400 Body weight 119.[address] Phuc Martines DO Work Phone: [facility] 03-30-2025 11:28-0400 Diastolic blood pressure 80 mm[Hg] Dr. Phuc Martines DO Work Phone: [facility] 03-30-2025 11:28-0400 Heart rate 69 /min Dr. Phuc Martines DO Work Phone: [facility] 03-30-2025 11:28-0400 Inhaled oxygen flow rate 2 L/min Dr. Phuc Martines DO Work Phone: [facility] 03-30-2025 11:28-0400 Respiratory rate 18 /min Dr. Phuc Martines DO Work Phone: [facility] 03-30-2025 11:28-0400 SaO2% (BldA) [Mass fraction] 86 % Dr. Phuc Martines DO Work Phone: [facility] 03-30-2025 11:28-0400 Systolic blood pressure 122 mm[Hg] Dr. Phuc Martines DO Work Phone: [facility] 03-01-2025 12:31-0400 Body mass index (BMI) [Ratio] 45.01 kg/m2 Janette Podlogar RESIDENCE LIFE COORDINATOR.FILTERS ASSEMBLER Work Phone: [facility] 03-01-2025 12:31-0400 Body weight 118.93 kg Janette Podlogar RESIDENCE LIFE COORDINATOR.FILTERS ASSEMBLER Work Phone: [facility] 03-01-2025 12:31-0400 Diastolic blood pressure 70 mm[Hg] Janette Podlogar RESIDENCE LIFE COORDINATOR.FILTERS ASSEMBLER Work Phone: [facility] 03-01-2025 12:31-0400 Heart rate 76 /min Janette Podlogar RESIDENCE LIFE COORDINATOR.FILTERS ASSEMBLER Work Phone: [facility] 03-01-2025 12:31-0400 Respiratory rate 18 /min Janette Podlogar RESIDENCE LIFE COORDINATOR.FILTERS ASSEMBLER Work Phone: [facility] 03-01-2025 12:31-0400 SaO2% (BldA) [Mass fraction] 90 % Janette Podlogar RESIDENCE LIFE COORDINATOR.FILTERS ASSEMBLER Work Phone: [facility] Comment on above: 3LPM 03-01-2025 12:31-0400 Systolic blood pressure 116 mm[Hg] Janette Podlogar RESIDENCE LIFE COORDINATOR.FILTERS ASSEMBLER Work Phone: [facility] 02-23-2025 13:26-0400 Body temperature 98.4 [degF] Dr. Phuc Martines DO Work Phone: [facility] 02-23-2025 13:26-0400 Diastolic blood pressure 83 mm[Hg] Dr. Phuc Martines DO Work Phone: [facility] 02-23-2025 13:26-0400 Heart rate 104 /min Dr. Phuc Martines DO Work Phone: [facility] 02-23-2025 13:26-0400 Inhaled oxygen flow rate 3.5 L/min Dr. Phuc Martines DO Work Phone: [facility] 02-23-2025 13:26-0400 Respiratory rate 18 /min Dr. Phuc Martines DO Work Phone: [facility] 02-23-2025 13:26-0400 SaO2% (BldA) [Mass fraction] 97 % Dr. Phuc Martines DO Work Phone: [facility] 02-23-2025 13:26-0400 Systolic blood pressure 110 mm[Hg] Dr. Phuc Martines DO Work Phone: [phone] [place] [address] 02-23-2025 03:57-0400 Body mass index (BMI) [Ratio] 44.6 kg/m2 Dr. Phuc Martines DO Work Phone: [facility] 02-23-2025 03:57-0400 Body weight 117.[address] Phuc Martines DO Work Phone: [facility] 02-22-2025 10:02-0400 Body height 162.[address] Phuc Martines DO Work Phone: [facility] 01-25-2025 11:08-0400 Body height 162.6 cm Maricruz Camp APRN.FILTERS ASSEMBLER Work Phone: [facility] 01-25-2025 11:08-0400 Body mass index (BMI) [Ratio] 45.56 kg/m2 Maricruz Camp APRN.FILTERS ASSEMBLER Work Phone: [facility] 01-25-2025 11:08-0400 Body weight 120.39 kg Maricruz Camp APRN.FILTERS ASSEMBLER Work Phone: [facility] 01-25-2025 11:08-0400 Diastolic blood pressure 76 mm[Hg] Maricruz Camp RESIDENCE LIFE COORDINATOR.FILTERS ASSEMBLER Work Phone: [facility] 01-25-2025 11:08-0400 Heart rate 88 /min Maricruz Camp RESIDENCE LIFE COORDINATOR.FILTERS ASSEMBLER Work Phone: [facility] 01-25-2025 11:08-0400 SaO2% (BldA) [Mass fraction] 92 % Maricruz Camp RESIDENCE LIFE COORDINATOR.FILTERS ASSEMBLER Work Phone: [facility] 01-25-2025 11:08-0400 Systolic blood pressure 131 mm[Hg] Maricruz Camp RESIDENCE LIFE COORDINATOR.FILTERS ASSEMBLER Work Phone: [facility] 01-20-2025 14:36-0400 Body mass index (BMI) [Ratio] 45.32 kg/m2 Phuc Martines DO Work Phone: [facility] 01-20-2025 14:36-0400 Body temperature 97 [degF] Phuc Martines DO Work Phone: [facility] 01-20-2025 14:36-0400 Body weight 119.75 kg Phuc Martines DO Work Phone: [facility] 01-20-2025 14:36-0400 Diastolic blood pressure 70 mm[Hg] Phuc Martines DO Work Phone: [facility] 01-20-2025 14:36-0400 Heart rate 72 /min Phuc Martines DO Work Phone: [facility] 01-20-2025 14:36-0400 Respiratory rate 20 /min Phuc Martines DO Work Phone: [facility] 01-20-2025 14:36-0400 Systolic blood pressure 138 mm[Hg] Phuc Martines DO Work Phone: [facility] 12-25-2024 11:22-0500 Body mass index (BMI) [Ratio] 45.08 kg/m2 Rajendra Goodman RESIDENCE LIFE COORDINATOR.FILTERS ASSEMBLER Work Phone: [facility] 02-28-2025 11:22-0500 Body weight 119.11 kg Rajendra Click RESIDENCE LIFE COORDINATOR.FILTERS ASSEMBLER Work Phone: [facility] 12-25-2024 11:22-0500 Diastolic blood pressure 64 mm[Hg] Rajendra Click RESIDENCE LIFE COORDINATOR.FILTERS ASSEMBLER Work Phone: [facility] 12-25-2024 11:22-0500 Heart rate 92 /min Rajendra Click RESIDENCE LIFE COORDINATOR.FILTERS ASSEMBLER Work Phone: [facility] 12-25-2024 11:22-0500 Respiratory rate 20 /min Rajendra Click RESIDENCE LIFE COORDINATOR.FILTERS ASSEMBLER Work Phone: [facility] 12-25-2024 11:22-0500 SaO2% (BldA) [Mass fraction] 91 % Rajendra Click RESIDENCE LIFE COORDINATOR.FILTERS ASSEMBLER Work Phone: [facility] Comment on above: 2 L NC 12-25-2024 11:22-0500 Systolic blood pressure 134 mm[Hg] Rajendra Click RESIDENCE LIFE COORDINATOR.FILTERS ASSEMBLER Work Phone: [facility] 10-19-2024 10:15-0500 Body height 162.6 cm Maricruz Thrall RESIDENCE LIFE COORDINATOR.FILTERS ASSEMBLER Work Phone: [facility] 10-19-2024 10:15-0500 Body mass index (BMI) [Ratio] 44.56 kg/m2 Maricruz Thrall RESIDENCE LIFE COORDINATOR.FILTERS ASSEMBLER Work Phone: [facility] 10-19-2024 10:15-0500 Body weight 117.75 kg Maricruz Thrall RESIDENCE LIFE COORDINATOR.FILTERS ASSEMBLER Work Phone: [facility] 10-19-2024 10:15-0500 Diastolic blood pressure 70 mm[Hg] Maricruz Thrall RESIDENCE LIFE COORDINATOR.FILTERS ASSEMBLER Work Phone: [facility] 10-19-2024 10:15-0500 Heart rate 101 /min Maricruz Thrall RESIDENCE LIFE COORDINATOR.FILTERS ASSEMBLER Work Phone: [facility] 10-19-2024 10:15-0500 SaO2% (BldA) [Mass fraction] 90 % Maricruz Thrall RESIDENCE LIFE COORDINATOR.FILTERS ASSEMBLER Work Phone: [facility] Comment on above: 3 L 10-19-2024 10:15-0500 Systolic blood pressure 130 mm[Hg] Maricruz Camp APRN.FILTERS ASSEMBLER Work Phone: [facility] 06-26-2024 11:29-0400 Body mass index (BMI) [Ratio] 43.6 kg/m2 Diana Gonzalez MD Work Phone: [facility] 06-26-2024 11:29-0400 Body weight 115.21 kg Diana Gonzalez MD Work Phone: [facility] 06-26-2024 11:29-0400 Diastolic blood pressure 78 mm[Hg] Diana Gonzalez MD Work Phone: [facility] 06-26-2024 11:29-0400 Heart rate 80 /min Diana Gonzalez MD Work Phone: [facility] 06-26-2024 11:29-0400 Respiratory rate 15 /min Diana Gonzalez MD Work Phone: [facility] 06-26-2024 11:29-0400 SaO2% (BldA) [Mass fraction] 91 % Diana Gonzalez MD Work Phone: [facility] 06-26-2024 11:29-0400 Systolic blood pressure 136 mm[Hg] Diana Gonzalez MD Work Phone: [facility] 04-26-2024 10:59-0400 Body mass index (BMI) [Ratio] 44.65 kg/m2 Damon Eugene APRN.FILTERS ASSEMBLER Work Phone: [facility] 04-26-2024 10:59-0400 Body temperature 98.6 [degF] Damon Eugene APRN.FILTERS ASSEMBLER Work Phone: [facility] 04-26-2024 10:59-0400 Body weight 118 kg Damon Eugene APRN.FILTERS ASSEMBLER Work Phone: [facility] 04-26-2024 10:59-0400 Diastolic blood pressure 68 mm[Hg] Damon Eugene APRN.FILTERS ASSEMBLER Work Phone: [facility] 04-26-2024 10:59-0400 Heart rate 68 /min Damon Eugene APRN.FILTERS ASSEMBLER Work Phone: [facility] 04-26-2024 10:59-0400 Respiratory rate 20 /min Damon Eugene APRN.FILTERS ASSEMBLER Work Phone: [facility] 04-26-2024 10:59-0400 SaO2% (BldA) [Mass fraction] 98 % Damon Eugene APRN.FILTERS ASSEMBLER Work Phone: [facility] 04-26-2024 10:59-0400 Systolic blood pressure 144 mm[Hg] Damon Eugene APRN.FILTERS ASSEMBLER Work Phone: [facility] 03-13-2024 12:59-0400 Body mass index (BMI) [Ratio] 44.29 kg/m2 Phuc Martines DO Work Phone: [facility] 03-13-2024 12:59-0400 Body temperature 97.59 [degF] Phuc Martines DO Work Phone: [facility] 03-13-2024 12:59-0400 Body weight 117.03 kg Phuc Martines DO Work Phone: [facility] 03-13-2024 12:59-0400 Diastolic blood pressure 70 mm[Hg] Phuc Martines DO Work Phone: [facility] 03-13-2024 12:59-0400 Heart rate 102 /min Phuc Martines DO Work Phone: [facility] 03-13-2024 12:59-0400 Respiratory rate 28 /min Phuc Martines DO Work Phone: [facility] 03-13-2024 12:59-0400 SaO2% (BldA) [Mass fraction] 91 % Phuc Martines DO Work Phone: [facility] 03-13-2024 12:59-0400 Systolic blood pressure 158 mm[Hg] Phuc Martines DO Work Phone: [facility] 01-29-2024 13:30-0400 Body temperature 97.9 [degF] Srikanth Sean RESIDENCE LIFE COORDINATOR.FILTERS ASSEMBLER Work Phone: [facility] 01-29-2024 13:30-0400 Body weight 118.4 kg Srikanth Estrada RESIDENCE LIFE COORDINATOR.FILTERS ASSEMBLER Work Phone: [facility] 01-29-2024 13:30-0400 Diastolic blood pressure 68 mm[Hg] Srikanth Sean RESIDENCE LIFE COORDINATOR.FILTERS ASSEMBLER Work Phone: [facility] 01-29-2024 13:30-0400 Heart rate 94 /min Srikanth Estrada RESIDENCE LIFE COORDINATOR.FILTERS ASSEMBLER Work Phone: [facility] 01-29-2024 13:30-0400 Respiratory rate 18 /min Srikanth Estrada RESIDENCE LIFE COORDINATOR.FILTERS ASSEMBLER Work Phone: [facility] 01-29-2024 13:30-0400 SaO2% (BldA) [Mass fraction] 93 % Srikanth Estrada RESIDENCE LIFE COORDINATOR.FILTERS ASSEMBLER Work Phone: [facility] 01-29-2024 13:30-0400 Systolic blood pressure 112 mm[Hg] Srikanth Estrada RESIDENCE LIFE COORDINATOR.FILTERS ASSEMBLER Work Phone: [facility] 08-14-2023 10:190400 Body temperature 97 [degF] Phuc Martines DO Work Phone: [facility] 08-14-2023 10:190400 Body weight 120.2 kg Phuc Martines DO Work Phone: [facility] 08-14-2023 10:19-0400 Diastolic blood pressure 70 mm[Hg] Phuc Martines DO Work Phone: [facility] 08-14-2023 10:19-0400 Heart rate 88 /min Phuc Martines DO Work Phone: [facility] 08-14-2023 10:19-0400 Respiratory rate 20 /min Phuc Martines DO Work Phone: [facility] 08-14-2023 10:19-0400 Systolic blood pressure 120 mm[Hg] Phuc Martines DO Work Phone: [facility] 06-13-2023 12:58-0400 Body weight 120.66 kg Pulm Wstr Work Phone: [facility] 06-13-2023 12:58-0400 Heart rate 102 /min Pulm Wstr Work Phone: [facility] 06-13-2023 12:58-0400 Respiratory rate 16 /min Pulm Wstr Work Phone: [facility] 06-13-2023 12:58-0400 SaO2% (BldA) [Mass fraction] 94 % Pulm Wstr Work Phone: [facility] 06-13-2023 12:53-0400 Diastolic blood pressure 86 mm[Hg] Hodan Mara PA-C Work Phone: [facility] 06-13-2023 12:53-0400 SaO2% (BldA) [Mass fraction] 80 % Hodan Mara PA-C Work Phone: [facility] 06-13-2023 12:53-0400 Systolic blood pressure 144 mm[Hg] Hodan Mara PA-C Work Phone: [facility] 09-28-2022 12:12-0500 Body temperature 99 [degF] Pratibha Fernando RESIDENCE LIFE COORDINATOR.FILTERS ASSEMBLER Work Phone: [facility] 09-28-2022 12:12-0500 Body weight 116.3 kg Pratibha Fernando RESIDENCE LIFE COORDINATOR.FILTERS ASSEMBLER Work Phone: [facility] 09-28-2022 12:12-0500 Diastolic blood pressure 94 mm[Hg] Pratibha Fernando RESIDENCE LIFE COORDINATOR.FILTERS ASSEMBLER Work Phone: [facility] 09-28-2022 12:12-0500 Heart rate 99 /min Pratibha Fernando RESIDENCE LIFE COORDINATOR.FILTERS ASSEMBLER Work Phone: [facility] 09-28-2022 12:12-0500 Respiratory rate 20 /min Pratibha Fernando RESIDENCE LIFE COORDINATOR.FILTERS ASSEMBLER Work Phone: [facility] 09-28-2022 12:12-0500 SaO2% (BldA) [Mass fraction] 94 % Pratibha King RESIDENCE LIFE COORDINATOR.FILTERS ASSEMBLER Work Phone: [facility] 09-28-2022 12:12-0500 Systolic blood pressure 142 mm[Hg] Pratibha King RESIDENCE LIFE COORDINATOR.FILTERS ASSEMBLER Work Phone: [facility] 08-01-2022 10:17-0400 Body temperature 98.4 [degF] Phuc Martines DO Work Phone: [facility] 08-01-2022 10:17-0400 Body weight 117.48 kg Phuc Martines DO Work Phone: [facility] 08-01-2022 10:17-0400 Diastolic blood pressure 60 mm[Hg] Phuc Martines DO Work Phone: [facility] 08-01-2022 10:17-0400 Heart rate 88 /min Phuc Martines DO Work Phone: [facility] 08-01-2022 10:17-0400 Respiratory rate 24 /min Phuc Martines DO Work Phone: [facility] 08-01-2022 10:17-0400 SaO2% (BldA) [Mass fraction] 88 % Phuc Martines DO Work Phone: [facility] 08-01-2022 10:17-0400 Systolic blood pressure 136 mm[Hg] Phuc Martines DO Work Phone: [facility] 03-16-2022 09:33-0400 Body height 164.5 cm Respiratory Wstr Work Phone: [facility] 03-16-2022 09:33-0400 Body weight 114.76 kg Respiratory Wstr Work Phone: [facility] 03-16-2022 09:33-0400 Heart rate 93 /min Respiratory Wstr Work Phone: [facility] 03-16-2022 09:33-0400 Respiratory rate 12 /min Respiratory Wstr Work Phone: [facility] 03-16-2022 09:33-0400 SaO2% (BldA) [Mass fraction] 94 % Respiratory Wstr Work Phone: [facility] 03-16-2022 09:31-0400 Body weight 114.76 kg Hodan Mara PA-C Work Phone: [facility] 03-16-2022 09:31-0400 Diastolic blood pressure 86 mm[Hg] Hodan Mara PA-C Work Phone: [facility] 03-16-2022 09:31-0400 Heart rate 93 /min Hodan Mara PA-C Work Phone: [facility] 03-16-2022 09:31-0400 Respiratory rate 12 /min Hodan Mara PA-C Work Phone: [facility] 03-16-2022 09:31-0400 SaO2% (BldA) [Mass fraction] 96 % Hodan Mara PA-C Work Phone: [facility] 03-16-2022 09:31-0400 Systolic blood pressure 138 mm[Hg] Hodan Mara PA-C Work Phone: [facility] 02-09-2022 12:49-0400 Body weight 114.31 kg Hodan Mara PA-C Work Phone: [facility] 02-09-2022 12:49-0400 Diastolic blood pressure 88 mm[Hg] Hodan Mara PA-C Work Phone: [facility] 02-09-2022 12:49-0400 Heart rate 102 /min Hodan Mara PA-C Work Phone: [facility] 02-09-2022 12:49-0400 Respiratory rate 20 /min Hodan Mara PA-C Work Phone: [facility] 02-09-2022 12:49-0400 SaO2% (BldA) [Mass fraction] 86 % Hodan Mara PA-C Work Phone: [facility] 02-09-2022 12:49-0400 Systolic blood pressure 140 mm[Hg] Hodan Mara PA-C Work Phone: [facility] 01-30-2022 08:59-0400 Body temperature 97.59 [degF] Phuc Martines DO Work Phone: [facility] 01-30-2022 08:59-0400 Body weight 115.21 kg Phuc Martines DO Work Phone: [facility] 01-30-2022 08:59-0400 Diastolic blood pressure 74 mm[Hg] Phuc Martines DO Work Phone: [facility] 01-30-2022 08:59-0400 Heart rate 104 /min Phuc Martines DO Work Phone: [facility] 01-30-2022 08:59-0400 Respiratory rate 20 /min Phuc Martines DO Work Phone: [facility] 01-30-2022 08:59-0400 SaO2% (BldA) [Mass fraction] 88 % Phuc Martines DO Work Phone: [facility] 01-30-2022 08:59-0400 Systolic blood pressure 150 mm[Hg] Phuc Martines DO Work Phone: [facility] Encounters Encounter Date Encounter Type Care Provider Facility Start: 08-19-2025 ambulatory Irina LYNN Facility:[facility] Start: 08-10-2025 End: 08-10-2025 ambulatory PHUC MARTINES Facility:[facility] Start: 08-04-2025 End: 08-04-2025 ambulatory PHUC L MARTINES Facility:[facility] Start: 07-30-2025 End: 07-30-2025 Patient encounter procedure Irina LYNN -[facility] Work Phone: Start: 07-30-2025 End: 07-30-[address] Phuc Martines DO Work Phone: -[facility] Start: 07-29-2025 End: 07-29-2025 ambulatory PHUC MARTINES Facility:[facility] Start: 07-26-2025 ambulatory PHUC MARTINES Facil ity:[facility] Start: 07-23-2025 End: 07-23-2025 ambulatory PHUC MARTINES Facility:[facility] Start: 07-01-2025 End: 07-01-[address] Reza Elena MD -[facility] Work Phone: Start: 07-01-2025 End: 07-01-[address] Phuc Martines DO Work Phone: -[facility] Start: 06-24-2025 ambulatory Reza Elena [place] Start: 06-24-2025 Non-patient / Non-visit Dr. Yonathan juarez DO -[facility] Start: 06-24-2025 End: 06-24-2025 Admission to same day surgery center Dr. Reza Elena MD -[facility]Special Procedures Work Phone: Start: 06-24-2025 End: 06-24-[address] Phuc Martines DO Work Phone: -[facility]/Special Procedures Start: 06-21-2025 End: 06-21-2025 ambulatory Anne Marie Gonzalez MA Work Phone: Internal Medicine Comment on above: SNF Discharge Initia l Outreach (Week 1) for Post Acute Care Start: 06-21-2025 End: 06-21-2025 Telephone encounter Rajendra Goodman RESIDENCE LIFE COORDINATOR.FILTERS ASSEMBLER Work Phone: Pulmonary Medicine Start: 06-15-2025 End: 06-15-2025 Telephone encounter Rajendra Goodman RESIDENCE LIFE COORDINATOR.FILTERS ASSEMBLER Work Phone: [facility] Comment on above: Orders (NIV) Start: 06-15-2025 End: 06-15-2025 ambulatory PHUC MARTINEZ [facility] Start: 06-14-2025 End: 06-14-2025 Refill Phuc Martines DO Work Phone: [facility] Comment on above: Refill Request Results Start: 06-12-2025 End: 06-14-2025 ambulatory Phuc Martines DO Work Phone: [facility] Comment on above: Furosemide/Lasix Start: 06-11-2025 End: 06-16-2025 ambulatory Rajendra Desouza Click RESIDENCE LIFE COORDINATOR.FILTERS ASSEMBLER Work Phone: Pulmonary Medicine Comment on above: NIV Start: 06-11-2025 End: 06-11-2025 Telephone encounter Rajendra Desouza Click RESIDENCE LIFE COORDINATOR.FILTERS ASSEMBLER Work Phone: Pulmonary Medicine Comment on above: Orders Start: 06-08-2025 End: 06-08-[address] Reza Elena MD [facility] Work Phone: Start: 06-08-2025 End: 06-08-[address] Phuc Martines DO Work Phone: [facility] Start: 06-04-2025 End: 06-04-2025 ambulatory PHUC MARTINES Facility:[facility] Start: 05-21-2025 End: 06-18-2025 ambulatory OSVALDO ARELLANO [facility] Start: 05-17-2025 Non-patient / Non-visit Dr. George Polanco MD [facility] Work Phone: Start: 05-16-2025 Non-patient / Non-visit Dr. George Polanco MD [facility] Work Phone: Start: 05-15-2025 Non-patient / Non-visit Dr. George Polanco MD [facility] Work Phone: Start: 05-14-2025 Non-patient / Non-visit Dr. George Polanco MD [facility] Work Phone: Start: 05-13-2025 ambulatory Nicko Vallejo Fac ility:[facility] Start: 05-13-2025 End: 05-17-2025 Evaluation and management of inpatient Dr. Nicko Vallejo DO -Progressive Care Unit Work Phone: Start: 05-13-2025 Emergency department patient visit Dr. Phuc Martines DO Work Phone: -Emergency Department Work Phone: Start: 05-12-2025 End: 05-12-2025 Follow-up encounter Sofi Garcia PA-C Work Phone: [facility] Start: 05-12-2025 End: 05-12-2025 Office outpatient new 60 minutes Jaden Newton MD Work Phone: [facility] Comment on above: Centrilobular emphys mason (HCC) (Primary Dx); Oxygen dependent; Chronic respiratory failure with hypoxia (HCC); Essential hypertension; Typical atrial flutter (HCC); Alcohol abuse; Mixed hyperlipidemia; Bilateral lower extremity edema Start: 05-12-2025 End: 05-12-2025 [facility] Start: 05-11-2025 End: 05-11-2025 ambulatory PHUC MARTINES Facility:[facility] Start: 05-11-2025 End: 05-11-2025 Office outpatient visit 40 minutes Sofi Garcia PA-C Work Phone: [facility] Comment on above: Hospital discharge f ollow-up (Primary Dx); Atrial flutter, unspecified type (HCC); Stage 3 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); RUQ pain; Congestive heart failure, unspecified HF chronicity, unspecified heart failure type (HCC); Essential hypertension Start: 05-11-2025 End: 05-11-2025 ambulatory PHUC MARTINES Facility:[facility] Start: 05-07-2025 End: 05-07-[address] Phuc Martines DO Work Phone: -[facility] Start: 05-07-2025 End: 05-07-2025 Patient encounter procedure Kim GONZALEZ -[facility] Work Phone: Start: 05-07-2025 End: 05-07-2025 ambulatory Kim Price Facility:[facility] Start: 04-27-2025 Non-patient / Non-visit Dr. George Polanco MD -[facility] Work Phone: Start: 04-26-2025 Non-patient / Non-visit Dr. George Polanco MD -[facility] Work Phone: Start: 04-25-2025 Non-patient / Non-visit Dr. George Polanco MD -[facility] Work Phone: Start: 04-24-2025 Non-patient / Non-visit Dr. George Polanco MD -[facility] Work Phone: Start: 04-23-2025 ambulatory Virginia Henriquez [place] Start: 04-23-2025 End: 04-27-2025 Evaluation and management of inpatient Dr. Virginia Henriquez MD -Progressive Care Unit Work Phone: Start: 04-23-2025 End: 04-23-2025 Office outpatient visit 40 minutes Tyra Carson APRN.FILTERS ASSEMBLER Work Phone: [facility] Comment on above: Acute confusion (Blanca patrizia Dx); Atrial flutter, unspecified type (HCC); Tachycardia; Stage 3 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); Congestive heart failure, unspecified HF chronicity, unspecified heart failure type (HCC); Hypersomnia; Hives; Abnormal pulse oximetry Start: 04-23-2025 End: 04-23-2025 ambulatory PHUC MARTINES Facility:[facility] Start: 04-22-2025 End: 04-22-2025 Follow-up encounter Anais LYNN Work Phone: [facility] Comment on above: Results Start: 04-20-2025 End: 04-20-2025 Patient encounter procedure Damon Eugene APRN.FILTERS ASSEMBLER Work Phone: [facility] Comment on above: Acute cystitis with hematuria; Candidal intertrigo; Confusion Start: 04-20-2025 End: 04-20-2025 ambulatory DAMON EUGENE Facility:[facility] Start: 04-06-2025 End: 04-06-2025 ambulatory Rajendra Goodman APRN.FILTERS ASSEMBLER Work Phone: Pulmonary Medicine Comment on above: Sleep Study Start: 03-31-2025 End: 03-31-2025 Patient encounter procedure Janette Damon APRN.FILTERS ASSEMBLER Work Phone: [facility] Comment on above: Essential (primary) hypertension; Atrial flutter, unspecified type (HCC) Start: 03-31-2025 End: 03-31-2025 ambulatory PHUC Osmany PEREZMARTINES Facility:[facility] Start: 03-30-2025 End: 03-30-[address] Phuc Martines DO Work Phone: [facility] Work Phone: Start: 03-30-2025 End: 03-30-[address] Reza Elena MD -[facility] Work Phone: Start: 03-10-2025 End: 03-10-2025 Office outpatient visit 15 minutes Rajendra Goodman APRN.FILTERS ASSEMBLER Work Phone: Pulmonary Medicine Comment on above: Daytime sleepiness ( Primary Dx); Stage 3 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); Chronic respiratory failure with hypoxia (HCC) Start: 03-10-2025 End: 03-10-2025 ambulatory PHUC L MARTINES Facility:[facility] Start: 03-01-2025 End: 03-01-2025 Patient encounter procedure Janette Damon APRN.FILTERS ASSEMBLER Work Phone: [facility] Comment on above: Hospital discharge f ollow-up (Primary Dx); Atrial flutter, unspecified type (HCC); Congestive heart failure, unspecified HF chronicity, unspecified heart failure type (HCC); Stage 3 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); Oxygen dependent; Essential hypertension Start: 03-01-2025 End: 03-01-2025 ambulatory PHUC MARTINES Facility:[facility] Start: 02-23-2025 Non-patient / Non-visit Dr. Yee Jones MD -[facility] Work Phone: Start: 02-22-2025 Non-patient / Non-visit Dr. Yee Jones MD -[facility] Work Phone: Start: 02-21-2025 Non-patient / Non-visit Dr. Claudia Do Inpatient Physicians Work Phone: Start: 02-20-2025 ambulatory Mercy Purvis [facility] Start: 02-20-2025 Non-patient / Non-visit Dr. Mercy smith MD -[facility] Start: 02-20-2025 Non-patient / Non-visit Dr. Claudia Do Inpatient Physicians Work Phone: Start: 02-19-2025 ambulatory Kym Norton [facility] Start: 02-19-2025 End: 02-23-2025 Evaluation and management of inpatient Dr. Yee Jones MD -Progressive Care Unit Work Phone: Start: 01-26-2025 End: 01-26-2025 Follow-up encounter Maricruz Camp APRN.FILTERS ASSEMBLER Work Phone: Pulmonary Medicine Start: 01-25-2025 End: 01-25-2025 Patient encounter procedure Maricruz Camp APRN.FILTERS ASSEMBLER Work Phone: Pulmonary Medicine Comment on above: Multiple lung nodule s (Primary Dx); Former tobacco use Start: 01-25-2025 End: 01-25-2025 ambulatory PHUC MARTINES Facility:[facility] Start: 01-25-2025 End: 01-25-2025 Subsequent hospital visit by physician [facility] (I-Stat) Work Phone: Cat Scan Start: 01-21-2025 End: 03-23-2025 Follow-up encounter Pratibha King APRN.FILTERS ASSEMBLER Work Phone: [facility] Start: 01-20-2025 End: 01-20-2025 ambulatory PHUC MARTINES Facility:[facility] Start: 01-20-2025 End: 01-20-2025 Patient encounter procedure Phuc Martines DO Work Phone: [facility] Comment on above: Medicare annual well ness visit, subsequent (Primary Dx); Hair thinning; Fatigue, unspecified type; Impaired fasting glucose; Dyslipidemia; Vitamin D deficiency; Stage 3 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); Essential hypertension; Oxygen dependent; Morbid obesity with BMI of 45.0-49.9, adult ([facility]) Start: 01-13-2025 End: 01-13-2025 ambulatory PHUC L MARTINES Facility:[facility] Start: 12-25-2024 End: 12-25-2024 ambulatory PHUC L MARTINES Facility:[facility] Start: 12-25-2024 End: 12-25-2024 Office outpatient visit 15 minutes Rajendra Goodman APRN.FILTERS ASSEMBLER Work Phone: Pulmonary Medicine Comment on above: Stage 3 severe COPD by GOLD classification ([facility]) (Primary Dx); Chronic respiratory failure with hypoxia ([facility]); Former cigarette smoker Start: 12-03-2024 End: 12-03-2024 ambulatory PHUC L MARTINES Facility:[facility] Start: 12-03-2024 End: 12-03-2024 Subsequent hospital visit by physician Screen Mammo [facility] Comment on above: Encounter for screen ing mammogram for breast cancer [Z12.31] Start: 11-27-2024 End: 11-27-2024 Refill Phuc L Martines DO Work Phone: [facility] Comment on above: Refill Request; Lab Orders Start: 11-11-2024 End: 11-11-2024 ambulatory Jacobo Donald MA [facility] Start: 11-11-2024 End: 11-11-2024 Patient encounter procedure Jacobo Donald MA [facility] Comment on above: Population Health Na vigation Outreach (KERRI CABELLO [facility] PCSCarlee) Start: 11-05-2024 End: 11-05-2024 ambulatory Irma WATKINS Pulmonary Medicine Start: 10-21-2024 End: 10-26-2024 ambulatory Phuc L Martines DO Work Phone: Internal Medicine [place] [id number] Start: 10-20-2024 End: 10-20-2024 ambulatory Maricruz Camp APRN.FILTERS ASSEMBLER Work Phone: Pulmonary Medicine Start: 10-19-2024 End: 10-19-2024 E-mail encounter from caregiver Hodan Christine PA-C Work Phone: Pulmonary Medicine Start: 10-19-2024 End: 10-19-2024 Patient encounter procedure Maricruz Camp APRN.FILTERS ASSEMBLER Work Phone: Pulmonary Medicine Comment on above: Multiple lung nodule s (Primary Dx); Encounter for screening for lung cancer; Former tobacco use Start: 10-19-2024 End: 10-19-2024 ambulatory Hodan Christine PA-C Work Phone: Pulmonary Medicine Comment on above: check in Start: 10-19-2024 End: 10-19-2024 Subsequent hospital visit by physician [facility] (I-Stat) Work Phone: Cat Scan Comment on above: Former cigarette smo ker [Z87.891] Start: 08-13-2024 End: 08-13-2024 ambulatory Phuc Martines DO Work Phone: [facility] [place] Comment on above: Pap and Mammo Start: 07-17-2024 End: 07-17-2024 Refill Vicky Duong APRN.FILTERS ASSEMBLER Work Phone: [facility] [place] Comment on above: Refill Request Start: 06-26-2024 End: 06-26-2024 Patient encounter procedure Diana Gonzalez MD Work Phone: Pulmonary Medicine Comment on above: Stage 3 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) (Primary Dx); Chronic hypoxemic respiratory failure (HCC); Former cigarette smoker; Morbid obesity (HCC) Start: 04-26-2024 End: 04-26-2024 Patient encounter procedure Damon Eugene APRN.FILTERS ASSEMBLER Work Phone: [facility] Comment on above: Skin infection (Prim luna Dx) Start: 03-30-2024 Telephone encounter Phuc robins DO Work Phone: [facility] [place] Comment on above: Patient Update Start: 03-13-2024 End: 03-13-2024 Patient encounter procedure Phuc Martines DO Work Phone: [facility] [place] Comment on above: Acute bronchitis wit h chronic obstructive pulmonary disease (COPD) (HCC) (HCC) (Primary Dx); Chronic obstructive pulmonary disease, unspecified COPD type ([facility]); Acute otitis media, left; Dyslipidemia; Impaired fasting glucose; Vitamin D deficiency; Essential hypertension; Stage 3 severe COPD by GOLD classification ([facility]); Fatigue, unspecified type; Oxygen dependent; Morbid obesity with BMI of 45.0-49.9, adult ([facility]); Thoracic aortic ectasia ([facility]) Start: 02-12-2024 Refill Phuc caban DO Work Phone: [facility] [place] Comment on above: Refill Request Start: 01-29-2024 End: 01-29-2024 Patient encounter procedure Srikanthsammy Estrada APRN.FILTERS ASSEMBLER Work Phone: [facility] Comment on above: Skin infection (Prim luna Dx) Start: 12-26-2023 End: 12-26-2023 Patient encounter procedure Diana Gonzalez MD Work Phone: Pulmonary Medicine Comment on above: Stage 3 severe COPD by GOLD classification ([facility]) (Primary Dx); Chronic respiratory failure with hypoxia ([facility]); Morbid obesity with BMI of 45.0-49.9, adult ([facility]); Lung nodules Start: 12-24-2023 Telephone encounter Phuc robins DO Work Phone: [facility] [place] Comment on above: Orders Start: 10-08-2023 End: 10-08-2023 Subsequent hospital visit by physician [facility] (I-Stat) Work Phone: Cat Scan Comment on above: Former cigarette smo ker [Z87.891] Start: 09-17-2023 End: 09-17-2023 Subsequent hospital visit by physician Screen Mammo [facility] Comment on above: Encounter for screen ing mammogram for malignant neoplasm of breast [Z12.31] Start: 08-16-2023 Telephone encounter Phuc robins DO Work Phone: [facility] [place] Comment on above: Results Start: 08-14-2023 End: 08-14-2023 Patient encounter procedure Phuc Martines DO Work Phone: [facility] [place] Comment on above: Essential hypertensi on (Primary Dx); Need for influenza vaccination; Encounter for screening mammogram for malignant neoplasm of breast; Need for RSV immunization; Vitamin D deficiency; Impaired fasting glucose; Stage 3 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); Oxygen dependent; Fatigue, unspecified type; Rash of foot; Dyslipidemia Start: 07-28-2023 Refill Phuc caban DO Work Phone: [facility] Comment on above: Refill Request Start: 06-13-2023 End: 06-13-2023 ambulatory Pulm Lab [facility] Work Phone: PUL LAB [facility] Comment on above: Spirometry Start: 06-13-2023 End: 06-13-2023 Patient encounter procedure Pulm Lab [facility] Work Phone: [facility] Comment on above: COPD, severe (HCC) ( Primary Dx); Chronic hypoxemic respiratory failure (HCC); Former cigarette smoker; Morbid obesity (HCC) Start: 05-30-2023 Telephone encounter Diana Gonzalez MD Work Phone: Pulmonary Medicine Comment on above: Patient Question (Adrián chan appt) Start: 03-06-2023 End: 03-06-2023 Subsequent hospital visit by physician [facility] Mob 2 Work Phone: Radiology Comment on above: Cyst of spleen [D73. 4] Start: 12-04-2022 Refill Phuc caban DO Work Phone: [facility] Comment on above: Refill Request Start: 10-10-2022 End: 10-10-2022 ambulatory Pulm Lab [facility] Work Phone: PUL LAB [facility] Comment on above: Arrived Medicare corresponde nce Start: 10-10-2022 End: 10-10-2022 Patient encounter procedure Pulm Lab [facility] Work Phone: [facility] [employer] Start: 09-28-2022 End: 09-28-2022 Subsequent hospital visit by physician [facility] Work Phone: Radiology Comment on above: COVID [U07.1] Start: 09-28-2022 End: 09-28-2022 Patient encounter procedure Pratibha King RESIDENCE LIFE COORDINATOR.FILTERS ASSEMBLER Work Phone: [facility] [place] Comment on above: COVID (Primary Dx); Chronic obstructive pulmonary disease, unspecified COPD type (HCC); Bacterial sinusitis; Oxygen dependent Start: 09-12-2022 Documentation procedure Mammog angel Coordinator [facility] Start: 09-12-2022 Letter encounter Mammography Coordinator [facility] Department Start: 09-12-2022 Telephone encounter Phuc robins DO Work Phone: [facility] [place] Comment on above: Forms Start: 09-11-2022 End: 09-11-2022 Subsequent hospital visit by physician Screen Mammo [facility] Comment on above: Encounter for screen ing mammogram for breast cancer [Z12.31] Start: 09-06-2022 Telephone encounter Pratibha Ma RESIDENCE LIFE COORDINATOR.FILTERS ASSEMBLER Work Phone: [facility] [place] Comment on above: Results; Scheduling Start: 09-05-2022 ambulatory Phuc Osmany Prem caban DO Work Phone: Internal [facility] [place] Start: 09-03-2022 End: 09-03-2022 Subsequent hospital visit by physician [facility] Mob 2 Work Phone: Radiology Comment on above: Cyst of spleen [D73. 4] Start: 08-30-2022 Telephone encounter Pratibha Ma RESIDENCE LIFE COORDINATOR.FILTERS ASSEMBLER Work Phone: [facility] [place] Comment on above: Results Start: 08-29-2022 End: 08-29-2022 Subsequent hospital visit by physician [facility] (I-Stat) Work Phone: Cat Scan Comment on above: Chronic obstructive pulmonary disease, unspecified COPD type (HCC) [J44.9] Start: 08-03-2022 Telephone encounter Phuc robins DO Work Phone: [facility] Medicine [place] Comment on above: Forms [...] Oxygen dependent Start: 07-04-2022 Orders Only Diana Gonazlez MD Work Phone: Pulmonary Medicine Comment on above: Chronic obstructive pulmonary disease, unspecified COPD type (HCC) (Primary Dx) Orders Start: 03-19-2022 ambulatory Hodan Cannon-C Work Phone: Pulmonary Medicine Comment on above: results Start: 03-19-2022 E-mail encounter fro m caregiver Hodan VIVEROSC Work Phone: [facility] [employer] Start: 03-16-2022 End: 03-16-2022 ambulatory Respiratory Therapist [facility] Work Phone: Pulmonary Medicine Comment on above: Spirometry Start: 03-16-2022 End: 03-16-2022 Patient encounter procedure Respiratory Therapist [facility] Work Phone: [facility] [employer] Comment on above: Chronic obstructive pulmonary disease, unspecified COPD type (HCC) (Primary Dx); Chronic hypoxemic respiratory failure (HCC); Dyspnea and respiratory abnormalities; Former smoker Start: 03-07-2022 Refill Phuc caban DO Work Phone: [facility] [place] Comment on above: Refill Request Start: 02-09-2022 End: 02-09-2022 Patient encounter procedure Hodan LYNN-C Work Phone: Pulmonary Medicine Comment on above: Chronic obstructive pulmonary disease, unspecified COPD type (HCC) (Primary Dx); Dyspnea and respiratory abnormalities Start: 01-30-2022 End: 01-30-2022 Patient encounter procedure Phuc Martines DO Work Phone: [facility] [place] Comment on above: Chronic obstructive pulmonary disease, unspecified COPD type (HCC) (Primary Dx); Essential hypertension; Impaired fasting glucose; Dyslipidemia; Vitamin D deficiency; Lightheaded Start: 01-10-2021 End: 01-10-2021 Subsequent hospital visit by physician Pedro [facility] [place] Work Phone: Radiology Comment on above: Acute gout involving toe of right foot, unspecified cause [M10.9] Start: 05-19-2019 End: 10-13-2019 Physical examination Phuc Martines DO Work Phone: [facility] Start: 09-10-2018 End: 09-10-2018 Patient encounter procedure [facility] Start: 09-05-2018 Encounter for other preprocedural examination [facility] Start: 09-05-2018 End: 09-05-2018 Patient encounter procedure [facility] Start: 11-09-2016 End: 10-13-2019 Patient encounter status Phuc Martines DO Work Phone: [facility] Procedures Date Procedure Procedure Detail Performing [...] Ct thorax w/o contra st liliana Camp RESIDENCE LIFE COORDINATOR.FILTERS ASSEMBLER Work Phone: Start: 01-20-2025 Thyrotropin [Units/v olume] in Serum or Plasma Jaden Newton MD Work Phone: Start: 01-13-2025 Lipid 1995 panel - S joaquin or Plasma Phuc Perezrison DO Work Phone: Start: 12-03-2024 End: 12-03-2024 Screening digital breast tomosynthesis bi Bulk Order Provider Start: 10-19-2024 CT LUNG SCREEN WO ASHER Camp RESIDENCE LIFE COORDINATOR.FILTERS ASSEMBLER Work Phone: Start: 03-13-2024 Adult depression scr [...] Us abdominal real ti me w/image limited [facility] RESIDENCE LIFE COORDINATOR.FILTERS ASSEMBLER Work Phone: Start: 10-10-2022 Noninvasive ear/puls e oximetry multiple deter Phuc L Martines DO Work Phone: Start: 09-28-2022 Radiologic exam ches t 2 views [facility] RESIDENCE LIFE COORDINATOR.FILTERS ASSEMBLER Work Phone: Start: 09-11-2022 End: 09-11-2022 Mammography Bulk Order Provider Start: 09-03-2022 Us abdominal real ti me w/image limited [facility] RESIDENCE LIFE COORDINATOR.FILTERS ASSEMBLER Work Phone: Start: 08-29-2022 Ct thorax w/o [...] Author Start: 01-13-2030 Lipid panel Lipid Screening [facility] Start: 03-11-2029 Lipid panel Lipid Screening [facility] Start: 09-10-2028 Colonoscopy COLONOSCOPY [facility] Start: 09-10-2028 COLORECTAL CANCER SCREENING COLORECTAL CANCER SCREENING [facility] Start: 09-10-2028 Screening for malign ant neoplasm of colon [facility] Start: 08-14-2028 Lipid 1996 panel - S joaquin or Plasma Lipid Screening [facility] Start: 08-14-2028 Lipid panel Lipid Screening [facility] Start: 05-11-2028 Diabetes Screening Diabetes Screenin g [facility] Start: 01-14-2028 Diabetes Screening Diabetes Screenin g [facility] Start: 07-30-2027 Lipid 1996 panel - S joaquin or Plasma Lipid Screening [facility] Start: 07-30-2027 LIPID SCREEN LIPID SCREEN [facility] Start: 03-11-2027 Diabetes Screening Diabetes Screenin g [facility] Start: 01-26-2027 LIPID SCREEN LIPID SCREEN [facility] Start: 08-14-2026 Diabetes Screening Diabetes Screenin g [facility] Start: 05-11-2026 Annual PCP Team Automation Application Engineer humza Disease Visit Annual PCP Team Chronic Disease Visit [facility] Start: 04-23-2026 Annual PCP Team Automation Application Engineer humza Disease Visit Annual PCP Team Chronic Disease Visit [facility] Start: 04-23-2026 Creatinine measurement Creatinine Le kenneth [facility] Start: 04-23-2026 Potassium measurement Potassium Leve l [facility] Start: 03-31-2026 Annual PCP Team Automation Application Engineer humza Disease Visit Annual PCP Team Chronic Disease Visit [facility] Start: 03-01-2026 Annual PCP Team Automation Application Engineer humza Disease Visit Annual PCP Team Chronic Disease Visit [facility] Start: 03-01-2026 BP Controlled (<130/80) BP Controlle d (<130/80) [facility] Start: 01-20-2026 Annual PCP Team Automation Application Engineer humza Disease Visit Annual PCP Team Chronic Disease Visit [facility] Start: 01-20-2026 Medicare Annual Well ness Visit Medicare Annual Wellness Visit [facility] Start: 01-20-2026 Thyroid stimulating hormone measurement TSH Level [facility] Start: 01-13-2026 Diabetes mellitus screening Diabetes Screening [facility] Start: 12-03-2025 Screening for malign ant neoplasm of breast [facility] Start: 11-09-2025 DTaP/Tdap/Td Vaccine s (3 - Td or Tdap) DTaP/Tdap/Td Vaccines (3 - Td or Tdap) [facility] Start: 11-09-2025 Urine microalbumin profile [facility] Start: 11-02-2025 End: 11-02-2025 Patient encounter procedure 11/02/2025 11:45 AM EST Office Visit Pulmonary Medicine [address] [place] [address] Diana Gonzalez MD [address] [place] [address] First Available - Follow up Pulmonary Medicine Comment on above: First Available - Fo llow up Start: 09-27-2025 End: 09-27-2025 Patient encounter procedure 09/27/2025 8:20 AM EST Office Visit Cardiology [address] [place], [place] [address] Toribio Robertson MD [address] [facility] [address] [place], [place] [id number] Dx: Atrial flutter, unspecified type (HCC) [I48.92]; Congestive heart failure, unspecified HF chronicity, unspecified heart failure type (HCC) [I50.9] Cardiology Comment on above: Dx: Atrial flutter, unspecified type (HCC) [I48.92]; Congestive heart failure, unspecified HF chronicity, unspecified heart failure type (HCC) [I50.9] Start: 09-02-2025 HPV TESTING HPV TESTING [facility] Start: 09-02-2025 PAP TESTING PAP TESTING [facility] Start: 08-04-2025 End: 08-04-2025 Patient encounter procedure 08/04/2025 10:00 AM EDT Office Visit Pulmonary Medicine [address] [place], [place] [id number] Rajendra Goodman APRN.FILTERS ASSEMBLER [address] [place] [address] 2 month follow up Pulmonary Medicine Comment on above: 2 month follow up Start: 07-30-2025 DIABETES SCREEN DIABETES SCREEN [facility] Start: 07-30-2025 Diabetes Screening Diabetes Screeniraida g [facility] Start: 07-30-2025 End: 07-30-2025 Evaluation of diagnostic study results [facility] Start: 07-29-2025 End: 07-29-2025 Patient encounter procedure [facility] Comment on above: 6 month LDCT 6 month LCS Start: 07-23-2025 End: 07-23-2025 Patient encounter procedure 07/23/2025 12:00 PM EDT Office Visit [facility] [place] [address] [place] [address] Phuc Martines, [address] [place] [address] 6 month follow up [facility] [place] Comment on above: 6 month follow up Start: 07-01-2025 End: 07-01-2025 Evaluation of diagnostic study results [facility] Start: 06-28-2025 Influenza vaccination Influenza Vacc ine (#1) [facility] Start: 06-24-2025 Patient discharge [facility] Start: 06-22-2025 End: 06-22-2025 Patient encounter procedure Pulmonary Medicine Comment on above: 6 month f/u Start: 06-08-2025 Cardioversion [facility] Start: 06-08-2025 End: 06-08-2025 Evaluation of diagnostic study results [facility] Start: 05-26-2025 End: 08-25-2025 ALK PHOS ISOENZYM BL ALK PHOS ISOENZYM BL Lab Routine Elevated alkaline phosphatase level Expected: 05/26/2025, Expires: 08/25/2025 [facility] Comment on above: Expected: 05/26/2025 , Expires: 08/25/2025 Start: 05-26-2025 End: 08-25-2025 Gamma glutamyl transferase [Enzymatic activity/volume] in Serum or Plasma GGT Lab Routine Elevated alkaline phosphatase level Expected: 05/26/2025, Expires: 08/25/2025 [facility] Work Phone: Comment on above: Expected: 05/26/2025 , Expires: 08/25/2025 Start: 05-19-2025 End: 05-19-2025 Patient encounter procedure 05/19/2025 11:30 AM EDT Appointment Radiology [address] [place] [address] Dx: RUQ pain [R10.11] Radiology Comment on above: Dx: RUQ pain [R10.11 ] Start: 05-17-2025 End: 05-17-2025 Patient encounter procedure 05/17/2025 9:00 PM EDT Office Visit Neurology [address] [place] [address] Daytime sleepiness [R40.0] Neurology Comment on above: Daytime sleepiness [ R40.0] Start: 05-17-2025 Patient discharge [facility] Start: 05-17-2025 Referral for physica l therapy [facility] Start: 05-17-2025 Referral to occupati onal therapist [facility] Start: 05-17-2025 Referral to service [facility] Start: 05-16-2025 Application of elast ic bandage [facility] Start: 05-14-2025 Inhalation therapy procedure [facility] Start: 05-13-2025 Ambulation without limitation [facility] Start: 05-13-2025 Assessment of risk o f venous thromboembolism [facility] Start: 05-13-2025 Insertion of cathete r into peripheral vein [facility] Start: 05-13-2025 Measuring intake and output [facility] Start: 05-13-2025 Oxygen therapy [facility] Start: 05-13-2025 Providing care accor ding to standard [facility] Start: 05-13-2025 Referral to service [facility] Start: 05-13-2025 [facility] Start: 05-13-2025 Following clinical pathway protocol [facility] Start: 05-13-2025 Admission procedure [facility] Start: 05-13-2025 Verification routine [facility] Start: 05-13-2025 Hospital admission, emergency, from emergency room, medical nature [facility] Start: 05-13-2025 [facility] Start: 05-13-2025 CT angiography of ch est with contrast CTA Chest W/WO Contrast [facility] Start: 05-13-2025 Continuous pulse oximetry [facility] Start: 05-13-2025 Dual pressure sponta neous ventilation support [facility] Start: 05-13-2025 End: 05-13-2025 [facility] Start: 05-13-2025 Patient referral to dietitian [facility] Start: 04-27-2025 Patient discharge [facility] Start: 04-26-2025 Referral for physica l therapy [facility] Start: 04-26-2025 Referral to occupati onal therapist [facility] Start: 04-26-2025 Referral to service [facility] Start: 04-25-2025 Care planning and pr oblem solving actions [facility] Start: 04-24-2025 Care planning and pr oblem solving actions [facility] Start: 04-23-2025 Following clinical pathway protocol [facility] Start: 04-23-2025 Assessment of risk o f venous thromboembolism [facility] Start: 04-23-2025 Inhalation therapy procedure [facility] Start: 04-23-2025 Insertion of cathete r into peripheral vein [facility] Start: 04-23-2025 Introduction of urin luna catheter [facility] Start: 04-23-2025 Measuring intake and output [facility] Start: 04-23-2025 Oxygen therapy [facility] Start: 04-23-2025 Providing care accor ding to standard [facility] Start: 04-23-2025 Provision of activit y privileges [facility] Start: 04-23-2025 Referral to service [facility] Start: 04-23-2025 [facility] Start: 04-23-2025 Care planning and pr oblem solving actions [facility] Start: 04-23-2025 Respiratory pathogen s DNA and RNA panel - Respiratory specimen by RENETTA with probe detection [facility] Start: 04-23-2025 Verification routine [facility] Start: 04-23-2025 Admission procedure [facility] Start: 04-23-2025 Hospital admission, emergency, from emergency room, medical nature [facility] Start: 04-23-2025 Serum inorganic phos phate measurement [facility] Start: 04-23-2025 [facility] Start: 04-23-2025 End: 04-23-2025 Patient encounter procedure 04/23/2025 3:00 PM EDT Office Visit Family [facility] [address] [facility] [place] [address] Tyra Carson APRN.FILTERS ASSEMBLER [address] [place] [address] [facility] Comment on above: increased confussion Start: 04-23-2025 [facility] Start: 03-31-2025 End: 03-31-2025 Patient encounter procedure 03/31/2025 1:00 PM EDT Office Visit [facility] [place] [address] [facility] [place] [address] Janette Damon APRN.FILTERS ASSEMBLER [address] [place] [address] BP follow up Family [facility] Comment on above: BP follow up Start: 03-30-2025 Patient referral [facility] Work Phone: Start: 03-30-2025 Evaluation of diagno stic study results [facility] Start: 03-13-2025 Annual PCP Team Automation Application Engineer humza Disease Visit Annual PCP Team Chronic Disease Visit [facility] Start: 03-13-2025 Anxiety Screening Anxiety Screening [facility] Start: 03-13-2025 Depression Screening Depression Scre ening [facility] Start: 03-10-2025 End: 03-10-2025 Patient encounter procedure 03/10/2025 1:00 PM EDT Office Visit Pulmonary Medicine [address] [place] [facility] [address] Rajendra Goodman RESIDENCE LIFE COORDINATOR.FILTERS ASSEMBLER [address] [place] [address] recent hospital stay Pulmonary Medicine Comment on above: recent hospital stay Start: 02-23-[address] [facility] Start: 02-20-2025 Vital signs measurements [facility] Start: 02-20-2025 Continuous pulse oximetry [facility] Start: 02-20-2025 Vital signs measurements [facility] Start: 02-20-2025 Vital signs measurements [facility] Start: 02-20-2025 Care planning and pr oblem solving actions [facility] Start: 02-20-2025 Vital signs measurements [facility] Start: 02-20-2025 Vital signs measurements [facility] Start: 02-20-2025 Vital signs measurements [facility] Start: 02-20-2025 Vital signs measurements [facility] Start: 02-20-2025 Dual pressure sponta neous ventilation support [facility] Start: 02-20-2025 Physiotherapy of chest [facility] Start: 02-19-2025 Vital signs measurements [facility] Start: 02-19-2025 Vital signs measurements [facility] Start: 02-19-2025 Vital signs measurements [facility] Start: 02-19-2025 Application of elast ic bandage [facility] Start: 02-19-2025 Assessment of risk o f venous thromboembolism [facility] Start: 02-19-2025 Bedrest [facility] Start: 02-19-2025 Elevation of affecte d extremity [facility] Start: 02-19-2025 Elevation of head of bed [facility] Start: 02-19-2025 Insertion of cathete r into peripheral vein [facility] Start: 02-19-2025 Measuring intake and output [facility] Start: 02-19-2025 Notification of physician [facility] Start: 02-19-2025 Oxygen therapy [facility] Start: 02-19-[address] [facility] Start: 02-19-2025 Providing care accor ding to standard [facility] Start: 02-19-2025 Referral to service [facility] Start: 02-19-2025 [facility] Start: 02-19-2025 Vital signs measurements [facility] Start: 02-19-2025 Following clinical pathway protocol [facility] Start: 02-19-2025 Admission procedure [facility] Start: 02-19-2025 End: 02-19-2025 [facility] Start: 02-19-2025 Blood culture Blood Culture [facility] Start: 02-19-2025 Inhalation therapy procedure [facility] Start: 02-17-2025 End: 02-17-2025 Patient encounter procedure 02/17/2025 4:20 PM EDT Office Visit Family [facility] [address] [place] [address] Phuc Martines DO [address] [place] [address] FOLLOW UP [facility] Comment on above: FOLLOW UP Start: 01-28-2025 BP Controlled (<130/80) BP Controlle d (<130/80) [facility] Start: 01-26-2025 DIABETES SCREEN DIABETES SCREEN [facility] Start: 01-25-2025 End: 01-25-2025 Patient encounter procedure Cat Scan Comment on above: LDCT [facility] Start: 01-20-2025 End: 01-20-2025 Patient encounter procedure 01/20/2025 3:00 PM EDT Office Visit [facility] [place] [address] [place] [address] Phuc Martines DO [address] [place] [address] FOLLOW UP [facility] Comment on above: FOLLOW UP Start: 01-20-2025 End: 04-21-2025 Cobalamin (Vitamin B12) [Mass/volume] in Serum or Plasma [facility] Comment on above: Expected: 01/20/2025 , Expires: 04/21/2025 Start: 01-20-2025 End: 04-21-2025 Folate [Mass/volume] in Serum or Plasma [facility] Comment on above: Expected: 01/20/2025 , Expires: 04/21/2025 Start: 01-20-2025 End: 04-21-2025 Iron and Iron binding capacity panel - Serum or Plasma [facility] Comment on above: Expected: 01/20/2025 , Expires: 04/21/2025 Start: 01-20-2025 End: 04-21-2025 Thyrotropin [Units/volume] in Serum or Plasma [facility] Work Phone: Comment on above: Expected: 01/20/2025 , Expires: 04/21/2025 Start: 01-20-2025 End: 04-21-2025 Thyroxine (T4) free [Mass/volume] in Serum or Plasma [facility] Comment on above: Expected: 01/20/2025 , Expires: 04/21/2025 Start: 01-20-2025 End: 04-21-2025 Triiodothyronine (T3) Free [Mass/volume] in Serum or Plasma [facility] Comment on above: Expected: 01/20/2025 , Expires: 04/21/2025 Start: 12-26-2024 End: 11-18-2025 CT Lung parenchyma WO contrast CT LUNG FOLLOWUP WO IVCON Radiology Routine Expected: 12/26/2024, Expires: 11/18/2025 [facility] Work Phone: Comment on above: Expected: 12/26/2024 , Expires: 11/18/2025 Start: 12-25-2024 End: 12-25-2024 Patient encounter procedure 12/25/2024 11:30 AM EST Office Visit Pulmonary Medicine [address] [place] [address] Rajendra Goodman APRN.FILTERS ASSEMBLER [address] [facility] [place] [address] 6 MTH F/U COPD [facility] Comment on above: 6 MTH F/U COPD Start: 12-03-2024 End: 12-03-2024 Patient encounter procedure 12/03/2024 11:10 AM EST Appointment Mammogram [address] [place] [address] Encounter for screening mammogram for breast cancer [Z12.31] Mammogram Comment on above: Encounter for screen ing mammogram for breast cancer [Z12.31] Start: 11-27-2024 End: 02-26-2025 CBC W Auto Differential panel - Blood COMPLETE BLOOD COUNT AND DIFFERENTIAL Lab Routine Dyslipidemia Expected: 11/27/2024, Expires: 02/26/2025 [facility] Comment on above: Expected: 11/27/2024 , Expires: 02/26/2025 Start: 11-27-2024 End: 02-26-2025 Comprehensive metabolic 2000 panel - Serum or Plasma COMPREHENSIVE METABOLIC PANEL Lab Routine Dyslipidemia Impaired fasting glucose Expected: 11/27/2024, Expires: 02/26/2025 [facility] Comment on above: Expected: 11/27/2024 , Expires: 02/26/2025 Start: 11-27-2024 End: 02-26-2025 Hemoglobin A1c in Blood HEMOGLOBIN A1C Lab Routine Impaired fasting glucose Expected: 11/27/2024, Expires: 02/26/2025 [facility] Work Phone: Comment on above: Expected: 11/27/2024 , Expires: 02/26/2025 Start: 11-27-2024 End: 02-26-2025 Lipid 1996 panel - Serum or Plasma LIPID PANEL BASIC Lab Routine Dyslipidemia Expected: 11/27/2024, Expires: 02/26/2025 [facility] Comment on above: Expected: 11/27/2024 , Expires: 02/26/2025 Start: 10-28-2024 Advance Directive Discussion Advance Directive Discussion [facility] Start: 10-19-2024 End: 10-19-2024 Patient encounter procedure Cat Scan Comment on above: LUNG SCREENING CT LUNG SCREENING Start: 09-17-2024 Mammography Mammogram Screening [facility] Start: 09-17-2024 Screening for malign ant neoplasm of breast Mammogram Screening [facility] Start: 09-08-2024 End: 09-08-2024 Patient encounter procedure 09/08/2024 10:40 AM EST Office Visit Family [facility] [address] [place] [address] Phuc Martines DO [address] [place] [address] 6 month follow up Family [facility] Comment on above: 6 month follow up Start: 08-14-2024 Annual PCP Team Automation Application Engineer humza Disease Visit Annual PCP Team Chronic Disease Visit [facility] Start: 08-14-2024 BP Controlled (<130/80) BP Controlle d (<130/80) [facility] Start: 06-28-2024 Covid-19 Vaccine () Covid-19 Vaccine () [facility] Start: 06-28-2024 Covid-19 Vaccine () Covid-19 Vaccine () [facility] Start: 06-28-2024 Influenza vaccination Influenza Vacc ine (#1) [facility] Start: 06-26-2024 End: 06-26-2024 Patient encounter procedure 06/26/2024 11:45 AM EDT Office Visit Pulmonary Medicine [address] [place] [address] Diana Gonzalez MD [address] [place] [address] 6 month f/u Pulmonary Medicine Comment on above: 6 month f/u Start: 04-26-2024 End: 07-26-2024 Bacteria identified in Wound by Culture ABSCESS AND WOUND CULTURE WITH GRAM STAIN Microbiology Routine Skin infection Expected: 04/26/2024, Expires: 07/26/2024 [facility] Work Phone: Comment on above: Expected: 04/26/2024 , Expires: 07/26/2024 Start: 02-07-2024 ANNUAL PCP TEAM SUPERVISOR MENDING UHMZA DISEASE VISIT ANNUAL PCP TEAM CHRONIC DISEASE VISIT [facility] Start: 12-24-2023 End: 03-24-2024 CBC W Auto Differential panel - Blood CBC + DIFF Lab Routine Dyslipidemia Expected: 12/24/2023, Expires: 03/24/2024 [facility] Work Phone: Comment on above: Expected: 12/24/2023 , Expires: 03/24/2024 Start: 12-24-2023 End: 03-24-2024 Comprehensive metabolic 2000 panel - Serum or Plasma COMP METABOLIC PANEL Lab Routine Dyslipidemia Expected: 12/24/2023, Expires: 03/24/2024 [facility] Work Phone: Comment on above: Expected: 12/24/2023 , Expires: 03/24/2024 Start: 12-24-2023 End: 03-24-2024 Hemoglobin A1c in Blood HGB A1C Lab Routine Impaired fasting glucose Expected: 12/24/2023, Expires: 03/24/2024 [facility] Work Phone: Comment on above: Expected: 12/24/2023 , Expires: 03/24/2024 Start: 12-24-2023 End: 03-24-2024 Lipid 1996 panel - Serum or Plasma LIPID PANEL BASIC Lab Routine Dyslipidemia Expected: 12/24/2023, Expires: 03/24/2024 [facility] Work Phone: Comment on above: Expected: 12/24/2023 , Expires: 03/24/2024 Start: 10-28-2023 Advance Directive Discussion Advance Directive Discussion [facility] Start: 10-28-2023 Behavioral Health Screening Behavioral Health Screening [facility] Start: 10-28-2023 Depression Assessment Depression Ass essment [facility] Start: 09-28-2023 ANNUAL PCP TEAM SUPERVISOR MENDING HUMZA DISEASE VISIT ANNUAL PCP TEAM CHRONIC DISEASE VISIT [facility] Start: 09-11-2023 Mammography [facility] Start: 08-29-2023 Influenza vaccination LUNG CANCER SC REENING [facility] Start: 08-29-2023 Screening for malign ant neoplasm of lung Lung Cancer Screening [facility] Start: 08-14-2023 End: 11-13-2023 25-hydroxyvitamin D3 [Mass/volume] in Serum or Plasma [facility] Work Phone: Comment on above: Expected: 08/14/2023 , Expires: 11/13/2023 Start: 08-14-2023 End: 11-13-2023 Cobalamin (Vitamin B12) [Mass/volume] in Serum or Plasma [facility] Work Phone: Comment on above: Expected: 08/14/2023 , Expires: 11/13/2023 Start: 08-14-2023 End: 11-13-2023 Comprehensive metabolic 2000 panel - Serum or Plasma [facility] Work Phone: Comment on above: Expected: 08/14/2023 , Expires: 11/13/2023 Start: 08-14-2023 End: 11-13-2023 Hemoglobin A1c in Blood [facility] Work Phone: Comment on above: Expected: 08/14/2023 , Expires: 11/13/2023 Start: 08-14-2023 End: 11-13-2023 Lipid 1996 panel - Serum or Plasma [facility] Work Phone: Comment on above: Expected: 08/14/2023 , Expires: 11/13/2023 Start: 08-14-2023 End: 11-13-2023 Thyrotropin [Units/volume] in Serum or Plasma [facility] Work Phone: Comment on above: Expected: 08/14/2023 , Expires: 11/13/2023 Start: 08-14-2023 End: 11-13-2023 Thyroxine (T4) free [Mass/volume] in Serum or Plasma [facility] Work Phone: Comment on above: Expected: 08/14/2023 , Expires: 11/13/2023 Start: 08-14-2023 End: 11-13-2023 Triiodothyronine (T3) Free [Mass/volume] in Serum or Plasma [facility] Work Phone: Comment on above: Expected: 08/14/2023 , Expires: 11/13/2023 Start: 08-01-2023 ANNUAL PCP TEAM SUPERVISOR MENDING HUMZA DISEASE VISIT ANNUAL PCP TEAM CHRONIC DISEASE VISIT [facility] Start: 06-28-2023 Covid-19 Vaccine ( season) Covid-19 Vaccine () [facility] Start: 06-28-2023 Influenza vaccination [facility] Start: 05-01-2023 Adult depression screening assessment DEPRESSION SCREENING [facility] Start: 05-01-2023 ANNUAL PCP TEAM SUPERVISOR MENDING HUMZA DISEASE VISIT ANNUAL PCP TEAM CHRONIC DISEASE VISIT [facility] Start: 03-06-2023 End: 10-06-2023 Us abdominal real time w/image limited US ABD SPLEEN Radiology Routine Cyst of spleen Expected: 03/06/2023, Expires: 10/06/2023 [facility] Work Phone: Comment on above: Expected: 03/06/2023 , Expires: 10/06/2023 Start: 01-30-2023 ANNUAL PCP TEAM SUPERVISOR MENDING HUMZA DISEASE VISIT ANNUAL PCP TEAM CHRONIC DISEASE VISIT [facility] Start: 01-30-2023 BP CONTROLLED (<130/80) BP CONTROLLE D (<130/80) [facility] Start: 01-30-2023 zzBP Controlled (<13 0/80) (Retired) zzBP Controlled (<130/80) (Retired) [facility] Start: 10-28-2022 ADVANCE DIRECTIVE DISCUSSION ADVANCE DIRECTIVE DISCUSSION [facility] Start: 10-28-2022 DEPRESSION ASSESSMENT DEPRESSION ASS ESSMENT [facility] Start: 2022 ADVANCE DIRECTIVE DISCUSSION ADVANCE DIRECTIVE DISCUSSION [facility] Start: 2022 BONE DENSITY BONE DENSITY [facility] Start: 2022 Bone Density Screening Bone Density Screening [facility] Start: 2022 PNEUMOCOCCAL (3 - PP SV23 if available, else PCV20) PNEUMOCOCCAL (3 - PPSV23 if available, else PCV20) [facility] Start: 2022 PNEUMOCOCCAL (3 - PP SV23 or PCV20) PNEUMOCOCCAL (3 - PPSV23 or PCV20) [facility] Start: 2022 PNEUMOCOCCAL: 65+ (3 - PPSV23 if available, else PCV20) PNEUMOCOCCAL: 65+ (3 - PPSV23 if available, else PCV20) [facility] Start: 2022 Screening for osteoporosis Bone Density Screening [facility] Start: 06-28-2022 Influenza vaccination INFLUENZA (#1) [facility] Start: 05-05-2022 Influenza vaccination LUNG CANCER [facility] Start: 04-26-2022 Adult depression screening assessment DEPRESSION SCREENING [facility] Start: 12-16-2021 COVID-19 VACCINE (4 - Booster for Pfizer series) COVID-19 VACCINE (4 - Booster for Pfizer series) [facility] Start: 10-10-2021 COVID-19 VACCINE (4 - Booster for Pfizer series) COVID-19 VACCINE (4 - Booster for Pfizer series) [facility] Start: 10-10-2021 COVID-19 VACCINE (4 - Pfizer series) COVID-19 VACCINE (4 - Pfizer series) [facility] Start: 09-02-2021 Mammography MAMMOGRAM [facility] Start: 2017 RSV Vaccine (1 - 1-d ose 60+ series) RSV Vaccine (1 - 1-dose 60+ series) [facility] Start: 06-30-2016 FECAL OCCULT BLOOD FECAL OCCULT BLOO D [facility] Start: 06-30-2016 Screening for malign ant neoplasm of colon Fecal Occult Blood [facility] Start: 2002 COLOGUARD (FIT-DNA) COLOGUARD (FIT-D NA) [facility] Start: [address] COLONOGRAPHY [facility] Start: 2002 Screening for malign ant neoplasm of colon [facility] Start: 2002 SIGMOIDOSCOPY SIGMOIDOSCOPY [facility] Start: 1975 Hepatitis C screening Hepatitis C Sc reening [facility] Start: 1975 HIV SCREENING HIV SCREENING [facility] Start: 1969 Depression Screening Depression Scre ening [facility] Start: 1957 Echocardiography Echocardiogram [facility] Start: 1957 Lipid panel Lipid Panel [facility] Start: 1957 Medicare Annual Well ness (AWV) Medicare Annual Wellness (AWV) [facility] Start: 1957 Screening for malign ant neoplasm of colon [facility] Start: 1957 Screening for osteoporosis Bone Density Scan [facility] Bacteria identified in Urine by Culture BACTERIAL CULTURE, URINE Microbiology Routine Acute cystitis with hematuria 04/20/2025 11:11 AM EDT [facility] Work Phone: Basic metabolic 2008 panel with ionized calcium - Serum or Plasma [facility] Basic metabolic 2008 panel with ionized calcium - Serum or Plasma [facility] End: 02-25-2026 CT Lung parenchyma WO contrast CT LUNG FOLLOWUP WO IVCON Radiology Routine Lung nodules 1 Occurrences starting 01/26/2025 until 02/25/2026 [facility] Work Phone: Comment on above: 1 Occurrences starti ng 01/26/2025 until 02/25/2026 CT LUNG SCREEN WO IVCON CT LUNG SCREEN WO IVCON Radiology Routine Former cigarette smoker 10/08/2023 1:24 PM EST [facility] Work Phone: End: 08-31-2023 Ct thorax w/o contrast material CT CHEST WO IVCON Radiology Routine Chronic obstructive pulmonary disease, unspecified COPD type (HCC) Chronic respiratory failure with hypoxia (HCC) Stage 3 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) Oxygen dependent 1 Occurrences starting 08/01/2022 until 08/31/2023 [facility] Work Phone: Comment on above: 1 Occurrences starti ng 08/01/2022 until 08/31/2023 End: 11-20-2025 DBT Breast - bilateral screening ANUSHA SCREENING W ASHLEY Radiology Routine Encounter for screening mammogram for breast cancer 1 Occurrences starting 10/21/2024 until 11/20/2025 [facility] Work Phone: Comment on above: 1 Occurrences starti ng 10/21/2024 until 11/20/2025 ECG COMPLETE ECG COMPLETE ECG Routine Tachycardia Atrial flutter, unspecified type (HCC) Ordered: 04/23/2025 [facility] Work Phone: Comment on above: Ordered: 04/23/2025 End: 02-09-2023 Echocardiography ECHO Cardiology Routine Chronic obstructive pulmonary disease, unspecified COPD type (HCC) 1 Occurrences starting 02/09/2022 until 02/09/2023 [facility] Work Phone: Comment on above: 1 Occurrences starti ng 02/09/2022 until 02/09/2023 Magnesium measurement [facility] End: 09-12-2024 ANUSHA SCREENING ANUSHA SCREENING Radiology Routine Encounter for screening mammogram for malignant neoplasm of breast 1 Occurrences starting 08/14/2023 until 09/12/2024 [facility] Work Phone: Comment on above: 1 Occurrences starti ng 08/14/2023 until 09/12/2024 NM Heart Views W str ess and W radionuclide IV [facility] Noninvasive ear/puls e oximetry multiple deter [id number] Procedures Routine Chronic obstructive pulmonary disease, unspecified COPD type (HCC) Oxygen dependent Ordered: 09/24/2022 [facility] Work Phone: Comment on above: Ordered: 09/24/2022 OXIMETRY - NOCTURNAL OXIMETRY - NOCTURNAL Procedures Routine Chronic obstructive pulmonary disease, unspecified COPD type (HCC) Chronic hypoxemic respiratory failure (HCC) Ordered: 03/16/2022 [facility] Work Phone: Comment on above: Ordered: 03/16/2022 OXIMETRY - NOCTURNAL OXIMETRY - NOCTURNAL Procedures Routine Chronic obstructive pulmonary disease, unspecified COPD type (HCC) Chronic respiratory failure with hypoxia (HCC) Stage 3 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) Oxygen dependent Ordered: 08/01/2022 [facility] Work Phone: Comment on above: Ordered: 08/01/2022 End: 03-11-2023 OXIMETRY WITH AMBULATION OXIMETRY WITH AMBULATION PFT Routine Chronic obstructive pulmonary disease, unspecified COPD type (HCC) 1 Occurrences starting 02/09/2022 until 03/11/2023 [facility] Work Phone: Comment on above: 1 Occurrences starti ng 02/09/2022 until 03/11/2023 End: 06-28-2024 OXIMETRY WITH AMBULATION OXIMETRY WITH AMBULATION PFT Routine Chronic obstructive pulmonary disease, unspecified COPD type (HCC) Oxygen dependent 1 Occurrences starting 05/30/2023 until 06/28/2024 [facility] Work Phone: Comment on above: 1 Occurrences starti ng 05/30/2023 until 06/28/2024 Patient Education Coping with He art Failure [facility] Work Phone: Patient referral [facility] Work Phone: End: 03-10-2026 Polysomnogram POLYSOMNOGRAM (PSG) Procedures Routine Daytime sleepiness 1 Occurrences starting 03/10/2025 until 03/10/2026 [facility] Work Phone: Comment on above: 1 Occurrences starti ng 03/10/2025 until 03/10/2026 End: 10-28-2023 Radiologic exam chest 2 views XR CHEST 2V FRONTAL/LAT Radiology Routine COVID Bacterial sinusitis Chronic obstructive pulmonary disease, unspecified COPD type (HCC) 1 Occurrences starting 09/28/2022 until 10/28/2023 [facility] Work Phone: Comment on above: 1 Occurrences starti ng 09/28/2022 until 10/28/2023 Radiologic exam ches t 2 views XR CHEST 2V FRONTAL/LAT Radiology Routine COVID Bacterial sinusitis Chronic obstructive pulmonary disease, unspecified COPD type (HCC) 09/28/2022 1:22 PM EST [facility] Work Phone: End: 10-05-2023 Screening mammography bi 2-view breast inc cad ANUSHA SCREENING Radiology Routine Encounter for screening mammogram for breast cancer 1 Occurrences starting 09/05/2022 until 10/05/2023 [facility] Work Phone: Comment on above: 1 Occurrences starti ng 09/05/2022 until 10/05/2023 End: 03-11-2023 SPIROMETRY BASELINE ONLY SPIROMETRY BASELINE ONLY PFT Routine Chronic obstructive pulmonary disease, unspecified COPD type (HCC) 1 Occurrences starting 02/09/2022 until 03/11/2023 [facility] Work Phone: Comment on above: 1 Occurrences starti ng 02/09/2022 until 03/11/2023 SPIROMETRY BASELINE ONLY SPIROME TRY BASELINE ONLY PFT Routine Chronic obstructive pulmonary disease, unspecified COPD type (HCC) 03/16/2022 8:57 AM EDT [facility] Work Phone: Troponin T.cardiac [Mass/volume] in Serum or Plasma by High sensitivity method [facility] End: 06-10-2026 US Abdomen RUQ US ABD RIGHT UPPER QUADRANT Radiology Routine RUQ pain 1 Occurrences starting 05/11/2025 until 06/10/2026 [facility] Work Phone: Comment on above: 1 Occurrences starti ng 05/11/2025 until 06/10/2026 End: 09-29-2023 Us abdominal real time w/image limited US ABD SPLEEN Radiology Routine Cyst of spleen 1 Occurrences starting 08/30/2022 until 09/29/2023 [facility] Work Phone: Comment on above: 1 Occurrences starti ng 08/30/2022 until 09/29/2023 End: 04-12-2025 XR Chest PA and Lateral XR CHEST 2V FRONTAL/LAT Radiology Routine Chronic obstructive pulmonary disease, unspecified COPD type (HCC) Acute bronchitis with chronic obstructive pulmonary disease (COPD) (HCC) (HCC) 1 Occurrences starting 03/13/2024 until 04/12/2025 [facility] Work Phone: Comment on above: 1 Occurrences starti ng 03/13/2024 until 04/12/2025 XR Chest PA and Lateral [facility] Immunizations Immunization Date Immunization Notes Care Provider Lesvia maldonado 09-28-2024 influenza, high dose seasonal, preservative-free Maricruz Camp RESIDENCE LIFE COORDINATOR.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 Phuc Martines DO Work Phone: [facility] 08-14-2023 influenza (HD-IIV4) vaccine, age 65+ yr, high dose, quadrivalent, PF (FLUZONE HIGH-DOSE) Phuc Martines DO Work Phone: [facility] Work Phone: 08-14-2023 influenza virus vacc ine, unspecified formulation Diana Gonzalez MD Work Phone: [facility] 02-06-2023 pneumococcal (PCV20) vaccine, 20 valent (PREVNAR 20) Diana Gonzalez MD Work Phone: [facility] Work Phone: 08-01-2022 influenza, injectabl e, quadrivalent, contains preservative Phuc Martines DO Work Phone: [facility] Work Phone: 08-01-2022 influenza, injectabl e, quadrivalent, preservative free Dr. Phuc Martines DO Work Phone: [facility] 08-01-2022 influenza virus vacc ine, unspecified formulation Phuc Martines DO Work Phone: [facility] 08-15-2021 Covid (Pfizer) Dr. Phuc arevalo DO Work Phone: [facility] 08-15-2021 influenza, injectabl e, quadrivalent, preservative free Hodan Christine PA-C Work Phone: [facility] Work Phone: 01-03-2021 COVID-19 vaccine, ag e 12+ yr (PFIZER-BIONTECH - PURPLE TOP) Phuc Martines DO Work Phone: [facility] Work Phone: 12-15-2020 COVID-19 vaccine, ag e 12+ yr (PFIZER-BIONTECH - PURPLE TOP) Phuc Martines DO Work Phone: [facility] Work Phone: 07-06-2020 influenza, injectabl e, quadrivalent, contains preservative Phuc Martines DO Work Phone: [facility] Work Phone: 07-06-2020 influenza, injectabl e, quadrivalent, preservative free Dr. Phuc Martines DO Work Phone: [facility] 11-20-2019 zoster vaccine recombinant Phuc Martines DO Work Phone: [facility] Work Phone: 08-04-2019 influenza, injectabl e, quadrivalent, contains preservative Phuc Martines DO Work Phone: [facility] Work Phone: 08-04-2019 influenza, injectabl e, quadrivalent, preservative free Dr. Phuc Martines DO Work Phone: [facility] 08-30-2018 influenza, injectabl e, quadrivalent, contains preservative Phuc Martines DO Work Phone: [facility] 08-30-2018 influenza, injectabl e, quadrivalent, preservative free Dr. Phuc Martines DO Work Phone: [facility] 05-06-2018 zoster vaccine recombinant Phuc Martines DO Work Phone: [facility] Work Phone: 08-31-2017 influenza, injectabl e, quadrivalent, contains preservative Puhc Martines DO Work Phone: [facility] 08-31-2017 influenza, injectabl e, quadrivalent, preservative free Dr. Phuc Martines DO Work Phone: [facility] 05-06-2017 pneumococcal polysaccharide vaccine, 23 valent Phuc Martines DO Work Phone: [facility] 09-28-2016 pneumococcal conjuga te vaccine, 13 valent Phuc Martines DO Work Phone: [facility] 08-18-2016 influenza, injectabl e, quadrivalent, contains preservative Phuc Martines DO Work Phone: [facility] 08-18-2016 influenza, injectabl e, quadrivalent, preservative free Dr. Phuc Martines DO Work Phone: [facility] 08-01-2016 influenza, injectabl e, quadrivalent, preservative free Dr. Phuc Martines DO Work Phone: [facility] 11-09-2015 tetanus toxoid, redu benigno diphtheria toxoid, and acellular pertussis vaccine, adsorbed Phuc Martines DO Work Phone: [facility] Work Phone: 07-28-2015 influenza, injectabl e, quadrivalent, contains preservative Phuc Martines DO Work Phone: [facility] Work Phone: 07-28-2015 influenza, injectabl e, quadrivalent, preservative free Dr. Phuc Martines DO Work Phone: [facility] 08-05-2014 influenza, injectabl e, quadrivalent, preservative free Dr. Phuc Martines DO Work Phone: [facility] 08-05-2014 influenza, seasonal, injectable Phuc Perezrison DO Work Phone: [facility] 09-05-2013 influenza virus vacc ine, unspecified formulation Phuc Martines DO Work Phone: [facility] Work Phone: 11-12-2012 influenza virus vacc ine, unspecified formulation Phuc Martines DO Work Phone: [facility] 09-03-2011 influenza virus vacc ine, unspecified formulation Phuc Martines DO Work Phone: [facility] Work Phone: 08-15-2010 influenza virus vacc ine, unspecified formulation Phuc Martines DO Work Phone: [facility] Work Phone: 07-28-2009 influenza virus vacc ine, unspecified formulation Phuc Martines DO Work Phone: [facility] 07-07-2008 pneumococcal polysaccharide vaccine, 23 valent Phuc Martines DO Work Phone: [facility] 11-19-2005 tetanus toxoid, redu benigno diphtheria toxoid, and acellular pertussis vaccine, adsorbed Phuc Martines DO Work Phone: [facility] Work Phone: Payers Date Payer Category Payer Self-pay 2022 [facility] D[facility] SUPPLE[facility] [id number] 2022 Medicare supplementa l policy (as second payer) [employer] MEDICARE SUPPLEMENT [id number] 2022 Medicare [id number] 2022 Medicare [id number] 2021 Unknown KATI S[place] O JEAN MARIE [id number] 2021-Present [phone] [address] [place] [address] [facility] [id number] 2017 Unknown [id number] 2014 Unknown [id number] 1955 Unknown [id number] 9.2.651 1957 Unknown [id number] 2.16.840.1.079482.3.57 9.2.651 Unknown [id number] 2.16.840.1.757620.3.57 9.2.462 Unknown [id number] 2.16.840.1.722892.3.57 9.2.462 Unknown [id number] 2.16.840.1.714777.3.57 9.2.462 Unknown [id number] 2.16.840.1.494484.3.57 9.2.462 Unknown [id number] 2.16.840.1.568459.3.57 9.2.462 Unknown [id number] 2.16.840.1.739093.3.57 9.2.462 Unknown [id number] 2..840.1.388910.3.57 9.2.462 Unknown [id number] 2.16840.1.668532.3.57 9.2.462 Unknown [id number] 2.16840.1.420481.3.57 9.2.462 Unknown [id number] 2.16.840.1.033232.3.57 9.2.462 Unknown [id number] 2.16.840.1.074869.3.57 9.2.462 Unknown [id number] 2.16.840.1.836158.3.57 9.2.462 Unknown [id number] 2.16840.1.850157.3.57 9.2.462 Unknown [id number] 2.16.840.1.024479.3.57 9.2.462 Unknown [id number] 2.16.840.1.444748.3.57 9.2.462 Unknown [id number] 2.16.840.1.722987.3.57 9.2.462 Unknown [id number] 2.16.840.1.458855.3.57 9.2.462 Unknown [id number] 2.16.840.1.135734.3.57 9.2.462 Unknown [id number] 2.16.840.1.370249.3.57 9.2.462 Unknown [id number] 2.16.840.1.580335.3.57 9.2.462 Unknown [id number] 2.16.840.1.953255.3.57 9.2.462 Unknown [id number] 2.16.840.1.618909.3.57 9.2.462 Unknown [id number] 2.16.840.1.554606.3.57 9.2.462 Unknown [id number] 2.16.840.1.306509.3.57 9.2.462 Unknown [id number] 2.16.840.1.603109.3.57 9.2.462 Unknown [id number] 2.16.840.1.963428.3.57 9.2.462 Unknown [id number] 2.16.840.1.618271.3.57 9.2.462 Unknown [id number] 2.16.840.1.157809.3.57 9.2.462 Unknown [id number] 2.16.840.1.288724.3.57 9.2.462 Social History Date Type Detail Facility Start: 06-22-2022 End: 06-24-2025 Tobacco smoking status IDIS Ex-smoker [facility] Work Phone: Start: 1971 End: 12-20-2008 History of tobacco use Current smoker [facility] Start: 1971 End: 12-20-2008 History of tobacco use Cigarette Smoker [facility] Start: 01-30-2022 End: 06-04-2025 Alcohol intake Current drinker of alcohol (finding) [facility] Start: 05-28-2020 End: 09-02-2020 History SDOH Alcohol Frequency 5 [facility] Start: 09-02-2020 End: 10-30-2021 History SDOH Alcohol Std Drinks 2 [facility] Start: 11-14-2019 End: 05-28-2020 History SDOH Social Connections Get Together 3 [facility] Start: 05-28-2020 History SDOH Social Connections Sabianism 98 [facility] Start: 11-14-2019 History SDOH Physica l Activity DPW 7 [facility] Start: 11-14-2019 End: 10-30-2021 History SDOH Physical Activity MPS 1 [facility] Start: 11-14-2019 Education 21 [facility] Start: 08-02-2015 End: 06-22-2022 Tobacco Comment Parents smoked in childhood home. Spouse smokes, not in home. [facility] Start: 1955 Sex Assigned At Female C [facility] Start: 12-11-2020 End: 09-28-2022 Exposure to SARS-CoV-2 (event) Not sure [facility] Work Phone: Start: 10-02-2020 End: 06-22-2022 Cigarettes smoked current (pack per day) - Reported 1 [facility] Work Phone: Start: 06-22-2022 End: 06-26-2024 Tobacco use and exposure Smokeless tobacco non-user [facility] Start: 10-02-2020 End: 02-06-2023 Tobacco use panel [facility] Work Phone: Start: 09-28-2012 Adult Depression Screening Assessment 0 [facility] Work Phone: Start: 05-28-2020 Gender identity Identifies as female gender (finding) [facility] Start: 05-28-2020 Sexual orientation Heterosexual (fin ding) [facility] How often to you hav e a drink containing alcohol? 4 or more times a week [facility] Work Phone: How many standard drinks containing alcohol do you have on a typical day? 3 or 4 [facility] Work Phone: How often do you hav e 6 or more drinks on 1 occasion? Less than monthly [facility] Work Phone: Do you feel stress - tense, restless, nervous, or anxious, or unable to sleep at night because your mind is troubled all the time - these days [OSQ] Only a little [facility] (I/We) worried whefletcher er (my/our) food would run out before (I/we) got money to buy more. Never true [facility] Work Phone: In the past 12 month s, was there a time when you were not able to pay the mortgage or rent on time? No [facility] Are you now , , , , never or living with a partner? [facility] How often do you hav e 6 or more drinks on 1 occasion? Weekly [facility] How hard is it for y ou to pay for the very basics like food, housing, medical care, and heating Not very hard [facility] Start: 04-15-2017 Heavy Heavy [facility] Start: 04-15-2017 None None [facility] Start: 04-15-2017 Spouse/ Significant Other Spouse/ Significant Other [facility] Start: 04-15-2017 Non-smoker Non-smoker [facility] Start: 02-23-2025 End: 04-06-2025 Sex Female (finding) [facility] Start: 04-06-2025 Alcohol Comment 4-5 mixed drinks per day [facility] Start: 1955 Sex assigned at Not on file [facility] Health Goals Date Patient Goal Desired Activity /State Functional Status Date Assessment Result Facility 05-17-2025 Functional status Ambulates;August r;Bathroom Privilege [facility] Work Phone: 04-27-2025 Functional status Ambulates [facility] Work Phone: 02-23-2025 Functional status Ambulates [facility] Work Phone: 05-09-2015 Are you deaf, or do you have serious difficulty hearing No 05/09/2015 3:40 PM EDT Carolina Horner Cma No [facility] 05-09-2015 Are you blind, or do you have serious difficulty seeing, even when wearing glasses No 05/09/2015 3:40 PM EDT Carolina Horner Cma No [facility] 05-09-2015 Do you have serious difficulty walking or climbing stairs No 05/09/2015 3:40 PM EDT Carolina Horner Cma No [facility] 05-09-2015 Do you have difficul ty dressing or bathing No 05/09/2015 3:40 PM EDT Carolina Horner Cma [facility] 05-09-2015 Because of a physica l, mental, or emotional condition, do you have difficulty doing errands alone such as visiting a physician's office or shopping No 05/09/2015 3:40 PM EDT Carolina Horner Cma [facility] Mental Status Date Assessment Result Facility 05-17-2025 Cognitive function Voice/Name [facility] Work Phone: 04-27-2025 Cognitive function Voice/Name [facility] Work Phone: 04-23-2025 Cognitive function Voice/Name [facility] Work Phone: 02-23-2025 Cognitive function Voice/Name [facility] Work Phone: 05-09-2015 Because of a physica l, mental, or emotional condition, do you have serious difficulty concentrating, remembering, or making decisions No 05/09/2015 3:40 PM EDT Carolina Horner Cma [facility] Clinical Notes 05-19-2019 to 08-11-2025 Anne Marie Gonzalez, [place] - 06/21/2025 3:26 PM EDTTelephone Encounter - [place] LPN - 06/21/2025 8:52 AM EDTTelephone Encounter - [place] LPN - 06/21/2025 8:52 AM EDT Note Date & Type Note Facility 08-11-2025 Note HNO ID: [id number] Author: YAJAIRA ROBERSON MD Service: ? Author [...] disease) (HCC) 02/03/2010 Coronary artery disease No [place], CHF. No heart cath. Diverticulosis of colon [...] hours as needed for wheezing/shortness of breath. fcqgegmwovj-eshuhccts-goglflre (TRELEGY ELLIPTA) 200-62.5-25 mcg inhalation powder Inhale [...] Cardiac: Examination is (more content not included)... [facility] 08-10-2025 Note HNO ID: [id number] Author: JR CHOU RN Service: ? Author [...] screening? 2023 Last Colonoscopy: Jr Chou RN [facility] 08-10-2025 Note HNO ID: [id number] Author: IRMA KEVIN HUC Service: ? 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 08-10-2025 Note Patient Outreach (PU LMMN) RAJENDRA LUCERO ([id number]) 1955 F Date Time Provider Department 08/10/25 [...] No Lung Cancer Screening Program Location: [facility] Allergies As of Date: 08/10/2025 Noted [...] as needed for wheezing/shortness of breath. - njbaymumjyo-edhajvthb-wwtkcwvt (TRELEGY ELLIPTA) 200-62.5-25 mcg inhalation powder Inhale [...] Encounter Status:Closed by IRMA KEVIN on 08/10/25 [facility] 08-04-2025 Note HNO ID: [id number] Author: RAJENDRA GOODMAN APRN.FILTERS ASSEMBLER Service: ? Author Type: Nurse Practitioner Type: Progress Notes Filed: 08/04/2025 10:29 Note Text: Pulmonary Medicine Patients name: Rajendra Palumbo PCP: Phuc Martines DO Recording using Optini software for draft documentation of the visit was discussed with the patient/authorized ict sales representative; all questions welcomed and answered. Patient/authorized ict sales representative agreed to proceed CC: follow-up HPI: Rajendra Lucero is a 69 year old female former 65-vaue-eqjv smoker, quitting in 2008 with PMH significant [...] (HCC) CHF (congestive heart failure) ([facility]) Chronic atrial fibrillation ([facility]) 07/26/2025 Chronic hypoxemic respiratory failure (HCC) COPD (chronic obstructive pulmonary disease) ([facility]) 02/03/2010 Coronary artery disease No [place], CHF. No heart cath. Diverticulosis of colon [...] ELLIPTA 200-62.5-25 mcg inhalation powder Generic drug: hfrbhzgadzb-jtmotlnjs-eekywkzc Inhale 1 Puff as instructed once daily. [...] cough and sh (more content not included)... [facility] 07-29-2025 Note HNO ID: [id number] Author: BRANDYN CARRASCO APRN.FILTERS ASSEMBLER Service: ? Author Type: Nurse Practitioner Type: Progress Notes Filed: 07/29/2025 12:10 Note Text: [facility] Lung Cancer Screening 6 month follow up Chief Complaint: Established patient in lung cancer screening program here for a 6 month follow up visit. PRIMARY CARE PHYSICIAN: Phuc Martines DO PULMONARY PROVIDER: Dr. Gonzalez BURNING SUPERVISOR: Dr. Elena Current or Ex-smoker? [Ex] Exam [...] Report: Yes Lung Cancer Screening Program Location[place] Impression / Recommendations Rajendra Lucero [...] which included preparing to see the patient, lcnc-pl-wwmf patient care, completing clinical documentation, obtaining and/or reviewing separately obtained history, performing a medically appropriate examination, counseling and educating the patient/family/caregiver, ordering medications, tests, or procedures, communicating with other HCPs (not separately reported), and independently interpreting results (not separately reported). BRANDYN CARRASCO, JAKI.[facility] History of Present Illness: Recording using Optini software for draft documentation of the visit was discussed with the patient/authorized ict sales representative; all questions welcomed and answered. Patient/authorized ict sales representative agreed to proceed The patient is [...] weight loss: No Lung Cancer Screening: - 02-ruyy-ayvb smoking history; quit 15 years ago. - [...] Underwent cardioversion in May by Dr. Elena, roofing foreman at [facility]. - Currently in normal sinus rhythm. Modified Medical Research [place] Dyspnea Scale (MMRC): I am too breathless to leave the house or I am breathless when dressing 4 (more content not included)... [facility] 07-29-2025 Note HNO ID: [id number] Author: PITO GALAVIZ, RT(R) Service: ? Author Type: Operations Professional Type: Progress Notes Filed: 07/29/2025 13:08 Note [...] PATIENT PRESENTS WITH AN IMPLANTABLE OR ATTACHED WEED CONTROL INSPECTOR: No RADIOLOGY DEPARTMENT: CT; Exam(s) Completed: Lung Screening. Anesthesia: No PERIPHERAL IV DATA: Not applicable SIGNED BY: RT Flower(R) July 29, 2025 1:07 PM [facility] 07-26-2025 Note HNO ID: [id number] Author: JEANINE BENITEZ RDMS Service: ? Author Type: E Commerce Manager Type: Progress Notes Filed: 07/26/2025 14:39 Note [...] PATIENT PRESENTS WITH AN IMPLANTABLE OR ATTACHED WEED CONTROL INSPECTOR: No RADIOLOGY DEPARTMENT: Ultrasound PERIPHERAL IV DATA: Not applicable SIGNED BY: Jeanine Benitez RDMS RVT July 26, 2025 2:39 PM [facility] 07-23-2025 Note HNO ID: [id number] Author: PHUC MARTINES, Service: ? Author Type: [...] oxygen dependent, stage 3, chronic hypoxia, seeing Dairy Equipment Installer- using her inhalers as prescribed. Was in the hospital recently a few months ago for flare up of symptoms Atrial fibrillation, recently diagnosed, seeing and managed by Firer Helper, no new symptoms. She is taking Eliquis medication as prescribed without bleeding SE Has some fatigue symptoms and brain fog symptoms PAST MEDICAL HISTORY Diagnosis Date Atrial flutter (HCC) CHF (congestive heart failure) (HCC) Chronic hypoxemic respiratory failure (HCC) COPD (chronic obstructive pulmonary disease) (HCC) 02/03/2010 Coronary artery disease No [place], CHF. No heart cath. Diverticulosis of colon [...] hours as needed for wheezing/shortness of breath. azqhemedbpg-onomwtlky-wmmghwlf (TRELEGY ELLIPTA) 200-62.5-25 mcg inhalation powder Inhale [...] soft, overweight/obese ASSESS (more content not included)... [facility] 06-24-2025 Procedure note [facility] 06-21-2025 Note HNO ID: [id number] Author: ANNE MARIE GONZALEZ MA Service: ? Author Type: Framing Inspector Type: Progress Notes Filed: 06/21/2025 16:08 Note Text: CUSTODIAL FACILITY (SNF) TRANSITIONAL CARE MANAGEMENT (TCM) POST-ACUTE [...] OUTREACH: PAC TCM Initial Outreach Transition from: [facility] Facility (SNF) Hi my name is Anne Marie Gonzalez MA and I am calling from the [facility] on behalf of your PCP, Phuc Martines DO, at [facility] [[id number]] We know that there can be [...] WORSE, or the SAME since leaving -- ([facility]. [phone]) ? Better ACTION TAKEN: Patient reports Better [...] Dept Phone 07/23/2025 12:00 PM [facility]UC MARTINES [facility] [phone] 07/29/2025 10:40 AM [facility] (I-STAT) Shefali Messer [phone] 07/29/2025 11:00 AM BRANDYN CARRASCO [phone] 08/04/2025 10:00 AM RAJENDRA GOODMAN Sridevi Messer [phone] Does patient have an appointment scheduled? No [...] with a soci (more content not included)... [facility] 06-21-2025 History of Presen t illness Narrative CUSTODIAL FACILITY (SNF) TRANSITIONAL CARE MANAGEMENT (TCM) POST-ACUTE [...] OUTREACH: PAC TCM Initial Outreach Transition from: [facility] Facility (SNF) Hi my name is Anne Marie Gonzalez MA and I am calling from the [facility] on behalf of your PCP, Phuc Martines DO, at [facility] [[id number]] We know that there can [...] WORSE, or the SAME since leaving -- ([facility]. [phone]) ? Better ACTION TAKEN: Patient reports Better [...] Dept Phone 07/23/2025 12:00 PM [facility]ART[facility] [phone] 07/29/2025 10:[address] [facility] (I-STAT) Shefali Messer [phone] 07/29/2025 11:00 AM BRANDYN CARRASCO [phone] 08/04/2025 10:00 AM RAJENDRA GOODMAN Sridevi Messer [phone] Does patient have an appointment scheduled? No [...] like to speak with a social work residential team leader to help give you support for any [...] Yes End outreach documented in this encounter [facility] 06-21-2025 Note HNO ID: [id number] Author: KIESHA PKIE, ? Service: ? Author Type: ? Type: Progress Notes Filed: 06/21/2025 11:30 Note Text: PAC TCM OUTREACH DOCUMENTION CUSTODIAL FACILITY (SNF) TRANSITIONAL CARE MANAGEMENT (TCM) POST-ACUTE CARE (PAC) PROGRAM LOS Concrete Block Plant Supervisor Outreach PAC Transition Navigator Action/FYI: Needs TCM Appt Program Details Post Acute Care Status: Enrolled Effective Dates: 06/21/2025 - present Responsible Staff: POST-ACUTE CARE ACO NAVIGATION Support and Services:Post-SNF Transition Support PAC Transition Navigator Handoff Hospitalization Reason for hospitalization: CHF exacerbation COPD exacerbation Acute on chronic hypoxic respiratory failure [facility] Facility Summary Is Summary Stay Information Available?: No ([facility] did not follow patient during SNF stay) Specialized Discharge Instructions/Needs Specialized discharge instructions/needs: N/A Prior Level of Function Durable Medical Equipment DME ordered: Unknown Home Care Services Home care ordered: Unknown Current Resources Patient has been recently discharged from a half-way facility. Hospitalization Details Hospital discharged from: Other (add comment) ([facility] ([facility])) Hospital admission date: 05/13/25 Hospital discharge date: 05/17/25 [facility] Facility Details Non-Network Facilities: -- ([facility] [phone]) SNF admission date: 05/17/25 SNF discharge date: 06/18/25 SNF [facility] Skilled LOS: 15.4 SNF Actual Skilled LOS: 32 Follow-up appts: Appointments for Next 60 Days Date Time Provider Location Dept Phone 07/23/2025 12:00 PM PHUC MARTINES [facility] [phone] 07/29/2025 10:[address] [facility]I-[facility]) [facility] [phone] 07/29/2025 11:00 AM BRANDYN CARRASCO [facility] [phone] 08/04/2025 10:00 AM RAJENDRA GOODMAN [facility] [phone] PAC Transition Navigator, please contact patient for PAC TCM Outreach and continuity of care. [facility] 06-21-2025 Telephone encounter Note Opened in error. [facility] 06-21-2025 Miscellaneous Notes Opened in error. documented in this encounter [facility] 06-21-2025 Note Patient Outreach (IN TMPA) RAJENDRA LUCERO ([id number]) 1955 F Date Time Provider Department 06/21/25 ANNE MARIE GONZALEZ INTMPCarlee During your visit today, we recorded the following information about you: Anne Marie Gonzalez MA 06/21/2025 4:08 PM Signed [facility] FACILITY (SNF) TRANSITIONAL CARE MANAGEMENT (TCM) POST-ACUTE [...] OUTREACH: PAC TCM Initial Outreach Transition from: [facility] (SNF) Hi my name is Anne Marie Gonzalez MA and I am calling from the [facility] on behalf of your PCP, Phuc Martines DO, at [facility] SHE[facility]AL[facility] [[id number]] We know that there can [...] WORSE, or the SAME since leaving -- ([facility] [phone]) ? Better ACTION TAKEN: Patient reports Better [...] Dept Phone 07/23/2025 12:00 PM [facility] [phone] 07/29/2025 10:[address] [facility] (I-STAT) Shefali Messer [phone] 07/29/2025 11:00 AM JOAQUINBRANDYN CUENCA [phone] 08/04/2025 10:00 AM RAJENDRA GOODMAN [phone] Does patient have an appointment scheduled? No [...] you have wha (more content not included)... [facility] 06-16-2025 Telephone encounter Note Faxed as requested. Patricia Ha MA [facility] 06-16-2025 Miscellaneous Notes Faxed as requested. Patricia Ha MA documented in this encounter [facility] 06-15-2025 Telephone encounter Note Called and gave provider info regarding addendum to note for medicare coverage. Completed and faxed. Patricia Ha MA [facility] 06-15-2025 Miscellaneous Notes Called and gave provider info regarding addendum to note for medicare coverage. Completed and faxed. Patricia Ha MA Sherrell from [facility] asking if Paige could call her concerning an order that needs to be signed. Sherrell Logan phoned regarding order of NIV. Please return call [phone]. No other details were given. Sherrell aware nurse not available this morning. Hodan Quinn MA documented in this encounter [facility] 06-15-2025 Telephone encounter Note Sherrell from [facility] asking if Paige could call her concerning an order that needs to be signed. [facility] 06-15-2025 Telephone encounter Note Sherrell from [facility] phoned regarding order of NIV. Please return call [phone]. No other details were given. Sherrell aware nurse not available this morning. Hodan Quinn MA [facility] 06-14-2025 Telephone encounter Note Call received from [facility] in [place]. They are requesting most recent ABGs done within the last 90 days in order to bill Medicare for the NIV. According to notes, ABGs were done during recent hospitalization but unsure if it was at [facility] or [facility]. Please fax ABGs to [facility] at: . Sierra Ludwig RN June 14, 2025 11:12 AM [facility] 06-14-2025 Miscellaneous Notes Call received from [facility] in [place]. They are requesting most recent ABGs done within the last 90 days in order to bill Medicare for the NIV. According to notes, ABGs were done during recent hospitalization but unsure if it was at [facility] or [facility]. Please fax ABGs to [facility] at: . Sierra Ludwig RN June 14, 2025 11:12 AM [address]ie from [facility] called and would like to get some info faxed over for this patients NIV just to cover their bases as she is supposed to be discharged home this week. Fax number [phone] Attn: Kallie. Jeanine Bedolla LPN documented in this encounter [facility] 06-14-2025 Telephone encounter Note Kallie from [facility] called and would like to get some info faxed over for this patients NIV just to cover their bases as she is supposed to be discharged home this week. Fax number [phone] Attn: Kallie. Jeanine Bedolla LPN [facility] 06-14-2025 Telephone encounter Note See refill encounter [facility] 06-14-2025 Miscellaneous Notes See refill encounter documented in this encounter [facility] 06-14-[address]. Martines, When in the hospital the end of January, they gave me a 3 month RX for Lasix. The prescription needs to be renewed. I am currently in [facility]. They said my primary needs to do refills, but [facility] says I cannot do through there. Can you please send a new RX to [facility] in [place] for this? Thank you, Linwood Lucero [facility] 06-14-[address] Martines, When in the hospital the end of January, they gave me a 3 month RX for Lasix. The prescription needs to be renewed. I am currently in [facility]. They said my primary needs to do refills, but [facility] says I cannot do through there. Can you please send a new RX to [facility] in [place] for this? Thank you, Linwood Lucero documented in this encounter [facility] 06-11-2025 Telephone encounter Note Noted. NIV orders faxed to [facility]. Lake Melvin LPN [facility] 06-11-2025 Miscellaneous Notes Noted. NIV orders faxed to [facility]. Lake Melvin LPN Patient called. Verified name and date of . States she is getting discharged from the penitentiary, [facility], tomorrow. Patient understood NIV Machine through [facility]. Patient states that [facility] has not received an order for the NIV Machine. Patient is able to get calls on her cell phone at this time: . Pito Izaguirre LPN documented in this encounter [facility] 06-11-2025 Telephone encounter Note Patient called. Verified name and date of . States she is getting discharged from the penitentiary, [facility] tomorrow. Patient understood NIV Machine through [facility]. Patient states that [facility] has not received an order for the NIV Machine. Patient is able to get calls on her cell phone at this time: . Pito Izaguirre LPN [facility] 06-04-2025 Note HNO ID: [id number] Author: RAJENDRA GOODMAN APRN.FILTERS ASSEMBLER Service: ? Author Type: Nurse Practitioner Type: Progress Notes Filed: 06/15/2025 14:49 Note Text: Pulmonary Medicine Patients name: Rajendra Palumbo PCP: Phuc Martines DO Recording using Optini software for draft documentation of the visit was discussed with the patient/authorized ict sales representative; all questions welcomed and answered. Patient/authorized ict sales representative agreed to proceed CC: hospital follow-up HPI: Rajendra Lucero is a 69 year old female former 32-bdba-vnjc smoker, quitting in 2008 with PMH significant [...] not require intubation. She was discharged to half-way on baseline O2. She had an updated [...] COPD (chronic obstructive pulmonary disease) ([facility]) 02/03/2010 Coronary artery disease No [place], CHF. No heart cath. Diverticulosis of colon [...] ELLIPTA 200-62.5-25 mcg inhalation powder Generic drug: eycqyvoozow-rujbshpuc-ztwifsep Inhale 1 Puff as instructed once daily. [...] Respiratory: Positive for (more content not included)... [facility] 05-17-2025 Consult note [facility] 05-17-2025 Discharge summary [facility] 05-17-2025 Discharge summary [facility] 05-17-2025 Discharge summary [facility] 05-17-2025 Note [facility] 05-17-2025 Discharge summary Note Date/Time May 17, 2025 11:13am [facility] Medical Records Department [address] [place] [address] Instructions for Home/Discharge Instructions 05/17/25 0751 MR#: [id number] Acct: [id number] Name: RAJENDRA LUCERO Rep #:[id number] : [...] [Daily Multi-Vitamin] Tablet 1 tab PO DAILY [place] Saline 0.65 % aerosol,spray 1 spray intranasal [...] in before D/C Order can be placed): [facility] 05/17/25 1113<Electronically signed by George Polanco MD>George Polanco MD CC: Dr. Nicko Vallejo, ; Dr. Phuc Martines DO ~ Signed [facility] Work Phone: 1(290) 175-774007-21-2025 Hospital Discharge instructionsAdditional Instructions Follows [facility] manufacturing maintenance technician Dr. Ortiz chronically advised to follow-up in 1 to 2 weeks and get PFT and sleep study Date of Discharge: 05/17/25[facility] Work Phone: 1(890) 695-432707-20-2025 [facility] Date/Time May 16, 2025 1:52 pm [facility] Medical Records Department [address] [place] [address] Progress Note - Hospitalist 05/16/25 1342 MR#: [id number] Acct: [id number] Name: RAJENDRA LUCERO Rep #:[id number] : 1955 69 From: George Willis PCP: Dr. Phuc Martines DO Status:AD M IN Location: [place] [address] Reason for Visit Chief Complaint: Worsening shortness [...] (Auto) 93.2 H, Lymph % (Auto) 3.2L, [place] % (Auto) 2.9, Eos % (Auto) 0.0, [...] is a 69-year-old female who presented to [facility] ED on 05/13/2025 with worsening shortness of [...] flow oxygen therefore probably 1 more day. 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 2. Acute on [...] with naps while inpatient as noted above. assistant restaurant general manager to help, set up sleep study [...] (Auto) 93.2 H, Lymph % (Auto) 3.2L, [place] % (Auto) 2.9, Eos % (Auto) 0.0, [...] 94.0 H, Lymph % (Auto) 4.3 L, [place] % (Auto) 1.1, Eos % (Auto) 0.0, [...] of malignancy or associated symptoms. Reading Location: [id number]-P Charges/Coding Visit Charges Inpatient E&M: 48258 Subs Hosp L2 05/16/25 1352 <Electronically signed by George Polanco MD> Cosigner Signature (if applicable): CC: ~ Signed [facility] Work Phone: 1(134) 263-500007-20-2025 Progress note [facility] Medical Records Department [address] [place] [address] Progress Note - Hospitalist 05/16/25 1342 MR#: [id number] Acct: [id number] Name: RAJENDRA LUCERO Rep #:[id number] : 1955 69 From: George Willis PCP: Dr. Phuc Martines, DO Status:AD M IN Location: [facility] [id number]- [id number] Reason for Visit Chief Complaint: Worsening [...] (Auto) 93.2 H, Lymph % (Auto) 3.2L, [place] % (Auto) 2.9, Eos % (Auto) 0.0, [...] is a 69-year-old female who presented to [facility] ED on 05/13/2025 with worsening shortness of [...] flow oxygen therefore probably 1 more day. 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 2. Acute on [...] with naps while inpatient as noted above. assistant restaurant general manager to help, set up sleep study [...] (Auto) 93.2 H, Lymph % (Auto) 3.2L, [place] % (Auto) 2.9, Eos % (Auto) 0.0, [...] 94.0 H, Lymph % (Auto) 4.3 L, [place] % (Auto) 1.1, Eos % (Auto) 0.0, [...] of malignancy or associated symptoms. Reading Location: [facility] Charges/Coding Visit Charges Inpatient E&M: 89515 Subs Hosp L2 05/16/25 1352 Cosigner Signature (if applicable): CC: ~ Signed [facility]07-19-2025 Discharge summary Author Malika Hernandez [facility] Note Date/Time May 15, 2025 3:11 pm [facility] Medical Records Department [address] [place] [address] Emergency Department Summary 05/13/25 MR#: [id number] Acct: [id number] Name: RAJENDRA LUCERO Rep #:[id number] : 1955 69 From: Malika LYNN PCP: Dr. Phuc Martines, Status:AD M IN Location: [facility] [id number] <Statement entered by Linwood Ivy DO - 05/15/25 15:11> Patient was seen and examined with physician assistant golf course superintendent Malika All components of the history and [...] chills. No nausea vomiting or abdominal pain. [facility] Medical History Atrial flutter with rapid [...] BID PRN dry 02/19/25 Unknown History aerosol ([place] Saline) nasal passages ascorbic acid (vitamin C) [...] 85.1 H Lymph % (Auto) 6.1 L [place] % (Auto) 7.4 Eos % (Auto) 0.1 [...] of malignancy or associated symptoms. Reading Location: [facility] EKG Initial EKG: Attestation: I personally reviewed and interpreted this EKG as follows: Interpretation: Atrial Flutter Comments: Atrial flutter at 106 bpm with RVR Rightward axis No STEMI Prior EKG tracings: available for review Prior: Unchanged Discharge Plan Dx/Rx/DC Orders Clinical Impression: Acute hypercapnic respiratory failure, History of COPD, History of heart failure Disposition Disposition: Acute Care Hospital [facility] Discharge Date/Time: 05/13/25 19:04 What to do if you have Problems For any increased pain, shortness of breath, bleeding, nausea or vomiting, chestpain, or any unexpected problems, contact your Primary Care Provider. Call [facility] ([phone]) or report to the closest Emergency Room. Call 911 if necessary. 05/13/252141 <Electronically signed by Malika LYNN> Cosigner Signature (if applicable): 05/15/25 1511 <Electronically signed by Linwood Ivy DO> CC: Dr. Phuc Martines DO ~ Signed [facility] Work Phone: 1(209) 984-576307-19-2025 Progress note Author George Polacno [facility] Note Date/Time May 15, 2025 1:33 pm [facility] Medical Records Department [address] [place] [address] Progress Note - Hospitalist 05/15/25 1316 MR#: [id number] Acct: [id number] Name: RAJENDRA LUCERO Rep #:[id number] : 1955 69 From: George Willis PCP: Dr. Phuc Martines DO Status:AD M IN Location: [place] [address] Reason for Visit Chief Complaint: Worsening shortness [...] 94.0 H, Lymph % (Auto) 4.3 L, [place] % (Auto) 1.1, Eos % (Auto) 0.0, [...] is a 69-year-old female who presented to [facility] ED on 05/13/2025 with worsening shortness of [...] with naps while inpatient as noted above. assistant restaurant general manager to help, set up sleep study [...] patient will drink 4-5 alcoholic drinks. on CICA protocol without medications for now. Monitor. 6. [...] 94.0 H, Lymph % (Auto) 4.3 L, [place] % (Auto) 1.1, Eos % (Auto) 0.0, [...] of malignancy or associated symptoms. Reading Location: [id number]-K Charges/Coding Visit Charges Inpatient E&M: 27080 Subs Hosp L2 05/15/25 4638 <Electronically signed by George Polanco MD> Cosigner Signature (if applicable): CC: ~ Signed [facility] Work Phone: 1(145) 506-443907-19-2025 Discharge summary [facility] Medical Records Department [address] [place] [address] Emergency Department Summary 05/13/25 MR#: [id number] Acct: [id number] Name: RAJENDRA LUCERO Rep #:[id number] : 1955 69 From: Malika LYNN PCP: Dr. Phuc Martines, DO Status:AD M IN Location: [place] [address] Patient was seen and examined with physician assistant golf course superintendent Malika All components of the history and [...] with above Physical exam: Agree with above [facility] Patient is a 69-year-old female who presented [...] a rate of 106 bpm. Patient's proBNP [id number]. Patient's ABG obtained reviewed showed pH 7.36 [...] discussed with hospitalist for admission. Patient was [facility] for admission. Patient was updated as well [...] chills. No nausea vomiting or abdominal pain. [facility] Medical History Atrial flutter with rapid ventricular response Pulmonary nodule Atrial flutter Shortness of breath ORXY (obstructive sleep apnea) Leiomyoma of uterus Internal [...] BID PRN dry 02/19/25 Unknown History aerosol ([place] Saline) nasal passages ascorbic acid (vitamin C) [...] 85.1 H Lymph % (Auto) 6.1 L [place] % (Auto) 7.4 Eos % (Auto) 0.1 [...] To/Read Back Yes Blood Gas Notified Whom [facility] Blood Gas Notified Time 13:37:54 Radiography [...] of malignancy or associated symptoms. Reading Location: [facility] EKG Initial EKG: Attestation: I personally reviewed and interpreted this EKG as follows: Interpretation: Atrial Flutter Comments: Atrial flutter at 106 bpm with RVR Rightward axis No STEMI Prior EKG tracings: available for review Prior: Unchanged Discharge Plan Dx/Rx/DC Orders Clinical Impression: Acute hypercapnic respiratory failure, History of COPD, History of heart failure Disposition Disposition: Acute Care Hospital [facility] Discharge Date/Time: 05/13/25 19:04 What to do if you have Problems For any increased pain, shortness of breath, bleeding, nausea or vomiting, chestpain, or any unexpected problems, contact your Primary Care Provider. Call [facility] ([phone]) or report tothe closest Emergency Room. Call 911 if necessary. 05/13/252141 Cosigner Signature (if applicable): 05/15/25 1511 CC: Dr. Phuc Martines, DO ~ Signed [facility]07-19-2025 Progress note [facility] Medical Records Department [address] [place] [address] Progress Note - Hospitalist 05/15/25 1316 MR#: [id number] Acct: [id number] Name: RAJENDRA LUCERO Rep #:[id number] : 1955 69 From: George Willis PCP: Dr. Phuc Martines DO Status:AD IN Location: [place] [address] Reason for Visit Chief Complaint: Worsening shortness [...] 94.0 H, Lymph % (Auto) 4.3 L, [place] % (Auto) 1.1, Eos % (Auto) 0.0, [...] is a 69-year-old female who presented to [facility] ED on 05/13/2025 with worsening shortness of [...] with naps while inpatient as noted above. assistant restaurant general manager to help, set up sleep study [...] 94.0 H, Lymph % (Auto) 4.3 L, [place] % (Auto) 1.1, Eos % (Auto) 0.0, [...] of malignancy or associated symptoms. Reading Location: [id number]-Q Charges/Coding Visit Charges Inpatient E&M: 09047 Subs Hosp L2 05/15/25 1333 Cosigner Signature (if applicable): CC: ~ Signed [facility]07-18-2025 Progress note Author George Polanco [facility] Note Date/Time May 14, 2025 2:50 pm [facility] Medical Records Department [address] [place] [address] Progress Note - Hospitalist 05/14/25817 MR#: [id number] Acct: [id number] Name: RAJENDRA LUCERO Rep #:[id number] : 1955 69 From: George Willis PCP: Dr. Phuc Martines, DO Status:AD M IN Location: [facility] [id number]- 1 Reason for Visit Chief Complaint: Worsening [...] 85.1 H, Lymph % (Auto) 6.1 L, [place] % (Auto) 7.4, Eos % (Auto) 0.1, [...] of malignancy or associated symptoms. Reading Location: TKW-RQSLNERMD-A Physical Exam Narrative Seen and examined. Patient [...] is a 69-year-old female who presented to [facility] ED on 05/13/2025 with worsening shortness of [...] with naps while inpatient as noted above. assistant restaurant general manager to help, set up sleep study [...] of malignancy or associated symptoms. Reading Location: GPQ-SIPKVMONZ-H Charges/Coding Addendum Addendum: Total time of the [...] is 35 minutes. Visit Charges Inpatient E&M: 71878 Subs Hosp L3 05/14/25 1450 <Electronically signed by George Polanco MD> Cosigner Signature (if applicable): CC: ~ Signed [facility] Work Phone: 1(111) 552-856407-18-2025 Progress note [facility] Medical Records Department [address] [place] [address] Progress Note - Hospitalist 05/14/25817 MR#: [id number] Acct: [id number] Name: RAJENDRA LUCERO Rep #:[id number] : 1955 69 From: George Willis PCP: Dr. Phuc Martines, DO Status:AD M IN [facility] Reason for Visit Chief Complaint: [...] 85.1 H, Lymph % (Auto) 6.1 L, [place] % (Auto) 7.4, Eos % (Auto) 0.1, [...] of malignancy or associated symptoms. Reading Location: QKV-TTVEXPPEH-N Physical Exam Narrative Seen and examined. Patient [...] is a 69-year-old female who presented to [facility] ED on 05/13/2025 with worsening shortness of [...] with naps while inpatient as noted above. assistant restaurant general manager to help, set up sleep study [...] of malignancy or associated symptoms. Reading Location: [id number]-QLHXDIZHQ-B Charges/Coding Addendum Addendum: Total time of the [...] is 35 minutes. Visit Charges Inpatient E&M: 88998 Subs Hosp 05/14/25 0169 Cosigner Signature (if applicable): CC: ~ Signed [facility]07-17-2025 History and physical note Author Nicko Vallejo [facility] Note Date/Time May 13, 2025 8:40 pm [facility] Medical Records Department [address] [place] [address] H&P Exam - Hospitalist 05/13/25 1816 MR#: [id number] Acct: [id number] Name: RAJENDRA LUCERO Bora Rep #:[id number] : 1955 69 From: Nicko glover DO PCP: Dr. Phuc Martines, DO Status:AD M IN Location: [facility] [id number]- [id number] HPI - General General Date of Admission: 05/13/25 Date of Service: 05/13/25 Chief Complaint: Worsening shortness of breath and leg swelling HPI Narrative RAJENDRA LUCERO, is a 69 F who presented to [facility] ED on 05/13/2025 with worsening shortness of [...] currently. Will be admitted for further management. [facility] Medical History Atrial flutter with rapid [...] BID PRN dry 02/19/25 Unknown History aerosol ([place] Saline) nasal passages ascorbic acid (vitamin C) [...] 85.1 H, Lymph % (Auto) 6.1 L, [place] % (Auto) 7.4, Eos % (Auto) 0.1, [...] is a 69-year-old female who presented to [facility] ED on 05/13/2025 with worsening shortness of [...] 75 minutes. Charges/Coding Visit Charges Inpatient E&M: 82741 Init Hosp L3 05/13/252039 <Electronically signed by Nicko Vallejo DO> Cosigner Signature (if applicable): CC: Dr. Nicko Vallejo DO; Dr. Phuc Martines DO~ Signed [facility] Work Phone: 1(678) 697-344507-17-2025 History and physical note [facility] Medical Records Department [address] [place] [address] H&P Exam - Hospitalist 05/13/25 1816 MR#: [id number] Acct: [id number] Name: RAJENDRA LUCERO Rep #:[id number] : 1955 69 From: Nicko glover DO PCP: Dr. Phuc Martines DO Status:AD M IN [facility] HPI - General General Date of Admission: 05/13/25 Date of Service: 05/13/25 Chief Complaint: Worsening shortness of breath and leg swelling HPI Jennifer LUCERO, is a 69 F who presented to [facility] ED on 05/13/2025 with worsening shortness of [...] currently. Will be admitted for further management. [facility] Medical History Atrial flutter with rapid [...] BID PRN dry 02/19/25 Unknown History aerosol ([place] Saline) nasal passages ascorbic acid (vitamin C) [...] 85.1 H, Lymph % (Auto) 6.1 L, [place] % (Auto) 7.4, Eos % (Auto) 0.1, [...] of malignancy or associated symptoms. Reading Location: [id number]-HCOCEJJPY-O Assessment & Plan Assessment/Plan (1) Acute and chronic respiratory failure with hypercapnia: (2) Acute on chronic heart failure with preserved ejection fraction (HFpEF): PLAN: Plan Patient is a 69-year-old female who presented to [facility] ED on 05/13/2025 with worsening shortness of [...] 75 minutes. Charges/Coding Visit Charges Inpatient E&M: 75400 Init Hosp L3 05/13/252039 Cosigner Signature (if applicable): CC: Dr. Nicko Vallejo, ; Dr. Phuc Martines DO~ Signed [facility]07-17-2025 Radiology Diagnostic study note [facility] Imaging Services [address] [place], [place] [id number] CTA Chest W/WO Contrast MR#: [id number] Acct: [id number] Name: RAJENDRA LUCERO Rep #: [id number] : 1955 F 69 From: Leonela Plunkett MD PCP: Dr. Phuc Martines, DO Status: RE G ER Study:CTA Chest W/WO Contrast Date of Exam: 05/13/25 Exam# [id number] Ordering Dr: Yonatan Ivy DO PROCEDURE: CTA [...] Linear consolidation at the posterior lung bases, jbjni-aqjjasq-pqkg-left. Unchanged solid nodules in the right upper [...] of malignancy or associated symptoms. Reading Location: [id number]-X CC: Dr. Phuc Martines, DO; Dr. Linwood Ivy, DO ~ Supreme Court Justice: Signed [facility]07-16-2025 Telephone encounter Note* Telephone Encounter - Laine De La Rosa LPN - 05/12/2025 10:07 AM EDT Pt and pt's friend notified of results and instructions with verbalized understanding. Will repeat labs as instructed. Laine De La Rosa LPN [facility] [facility] Miscellaneous Notes* Telephone Encounter - Laine [...] investigate this elevation more. [facility] History of Present illness Narrative* Jaden Newton MD - 05/12/2025 9:30 AM EDT [facility] [place] Cardiology/Electrophysiology New Patient Clinic Note Chief Complaint: [...] January 2025 when she presented to the [place] [facility] with worsening lower extremity edema and [...] day Drug use: Never documented in this [facility]07-16-2025 Telephone encounter Note* Telephone Encounter - Sofi [...] additional labs to investigate this elevation more. [facility]07-[facility]25 NoteHNO ID: [id number] Author: SOFI GARCIA PA-C Service: ? Author Type: Physician Animal Taxonomist Type: Progress Notes Filed: 05/11/2025 14:34 Note Text: Chief Complaint Patient presents with: Hospital F/U [employer] Rajendra Lucero is a 69 year old female who presents here today for Hospital Discharge Follow up.. Patient was admitted on 04/23/2025 Discharge of 04/27/2024 Dx: atrial flutter with RVR; COPD exacerbation CHF: - Recent hospitalization from 04/23 to 04/27. - Follow-up with cardiology last Saturday; Lasix increased to 60 mg BID for 5 days. - Scheduled to see telecommunications analyst tomorrow. - Started on on Saturday; no [...] disease) (HCC) 02/03/2010 Coronary artery disease No [place], CHF. No heart cath. Diverticulosis of colon [...] hours as needed for wheezing/shortness of breath. rvtjyotvhxg-kxzqatofl-dejrdvww (TRELEGY ELLIPTA) 200-62.5-25 mcg inhalation powder Inhale [...] day. No current facility-ad (more content not included)...[facility] 05-11-2025 History of Present illness Narrative* Sofi Garcia PA-C - 05/11/2025 11:43 AM EDT Chief Complaint Patient presents with: [facility] F/U [employer] Rajendra Lucero is a 69 year old female who presents here today for Hospital Discharge Follow up.. Patient was admitted on 04/23/2025 Discharge of 04/27/2024 Dx: atrial flutter with RVR; COPD exacerbation CHF: - Recent hospitalization from 04/23 to 04/27. - Follow-up with cardiology last Saturday; Lasix increased to 60 mg BID for 5 days. - Scheduled to see telecommunications analyst tomorrow. - Started on on Saturday; no [...] disease) (HCC) 02/03/2010 Coronary artery disease No [place], CHF. No heart cath. Diverticulosis of colon [...] hours as needed for wheezing/shortness of breath. qojbyigmfys-zqqzfzaft-wrgntoff (TRELEGY ELLIPTA) 200-62.5-25 mcg inhalation powder Inhale [...] met for rehab post-discharge. - Follow-up with telecommunications analyst scheduled for tomorrow. 2. Atrial flutter, unspecified type (HCC) (I48.92) - Follow-up with telecommunications analyst scheduled for tomorrow. 3. Stage 3 severe COPD by GOLD classification ([facility]) (J44.9) - Oxygen saturation levels [...] which included preparing to see the patient, iaug-qg-abdd patient care, completing clinical documentation, obtaining and/or reviewing separately obtained history, performing a medically appropriate examination, counseling and educating the pat ient/family/caregiver, ordering medications, tests, or procedures, and communicating results to thepatient/family/caregiver. Recording using Optini software for draft documentation of the visit was discussed with the patient/authorized ict sales representative; all questions welcomed and answered. Patient/authorized ict sales representative agreed to proceed documented in this [facility]-2025 Radiology Diagnostic study note [facility] Imaging Services [address] [place] [address] Chest PA and Lateral MR#: [id number] Acct: [id number] Name: RAJENDRA LUCERO Rep #: [id number] 11 : 1955 F 69 From: Dionte Stack MD PCP: Dr. Phuc Martines, Status: RE G CLI Study:Chest PA and Lateral Date of Exam: 05/07/25 Exam# [id number] Ordering Dr: Kim Price BOAT RENTAL CLERK BOAT RENTAL CLERK-C PROCEDURE: CHEST PA AND LATERAL 05/07/2025 REASON [...] Findings suggestive of pulmonary scarring. Reading Location: [place] [address] CC: LISA Price; Dr. Phuc Martines, DO ~ Supreme Court Justice: Signed [facility]07-01-[address] [facility] Medical Records Department [address] [place] [address] Counseling Note - Pharmacy 04/26/25 1022 MR#: [id number] Acct: [id number] Name: RAJENDRA LUCERO Rep #:[id number] 41 : 1955 69 From: Milena Rodas PCP: Dr. Phuc Martines, Status:AD M IN Location: [facility] KOV266 1 Pharmacy [facility] Counseling Pharmacy Service has performed [...] sodium chloride 0.65 % nasal spray aerosol ([place]chester Saline) 1 spray intranasal BID PRN dry [...] mcg chewable tablet 1,000 mcg PO QDAY gdcotnxfvk87/03/25 nystatin 100,000 unit/gram topical cream 1 applic topical BID skin rash 04/23/25 atorvastatin 40 mg tablet 40 mg PO QHS 30 days #30 tabs 04/26/25 diltiazem HCl 180 mg capsule,extended release 24 hr 180 mg PO Q12 30 days #60 caps 04/26/25 04/26/25 1022 Date _ Milena Herron Signature (if applicable): Date CC: ~ Signed [facility]07-01-2025 Discharge summary Author George Polanco [facility] Note Date/Time April 27, 2025 2:04p sridevi [facility] Medical Records Department [address] [place] [address] Discharge Summary 04/27/25 1113 MR#: [id number] Acct: [id number] Name: RAJENDRA LUCERO Rep #:[id number] 18 : 1955 69 From: George Willis PCP: Dr. Phuc Martines, DO Status:AD M IN Location: [place] [address] Providers Date of Admission: 04/23/25 Date of [...] it. She was also told by her roofing foreman Dr. Reza Elena to be cautious will [...] uses supplemental oxygen, no PAP therapy. 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 Diana gonzalez #11. DVT prophylaxis: Will [...] 87.0 H, Lymph % (Auto) 5.2 L, [place] % (Auto) 5.9, Eos % (Auto) 0.9, [...] sodium chloride 0.65 % nasal spray aerosol ([place] Saline) 1 spray intranasal BID PRN dry [...] mcg chewable tablet 1,000 mcg PO QDAY wsksopfwso04/03/25 nystatin 100,000 unit/gram topical cream 1 applic [...] baseline and chronic alcohol use. Scheduled with roofing foreman for possible ablation. Patient was also having [...] [Daily Multi-Vitamin] Tablet 1 tab PO DAILY [place] Saline 0.65 % aerosol,spray 1 spray intranasal [...] Health Service Charges/Coding Visit Charges Inpatient E&M: 06451 Disch Hosp >30min 04/27/25 1404 <Electronically signed by George Polanco MD> Cosigner Signature (if applicable): CC: Dr. Phuc Martines DO; Dr. George Polanco MD~ Signed [facility] Work Phone: 1(127) 859-728507-01-2025 Discharge summary [facility] Medical Records Department [address] [place] [address] Discharge Summary 04/27/25 1113 MR#: [id number] Acct: [id number] Name: RAJENDRA LUCERO Rep #:[id number] 18 : 1955 69 From: George Willis PCP: Dr. Phuc Martines DO Status:AD M IN Location: U UGC874- 1 Providers Date of Admission: 04/23/25 Date [...] it. She was also told by her roofing foreman Dr. Reza Elena to be cautious will [...] uses supplemental oxygen, no PAP therapy. 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 Diana gonzalez #11. DVT prophylaxis: Will [...] 87.0 H, Lymph % (Auto) 5.2 L, [place] % (Auto) 5.9, Eos % (Auto) 0.9, [...] sodium chloride 0.65 % nasal spray aerosol (Colchester Saline) 1 spray intranasal BID PRN dry [...] mcg chewable tablet 1,000 mcg PO QDAY katzrnxwbz14/03/25 nystatin 100,000 unit/gram topical cream 1 applic [...] baseline and chronic alcohol use. Scheduled with roofing foreman for possible ablation. Patient was also having [...] [Daily Multi-Vitamin] Tablet 1 tab PO DAILY [place] Saline 0.65 % aerosol,spray 1 spray intranasal [...] Health Service Charges/Coding Visit Charges Inpatient E&M: 66545 Disch Hosp >30min 04/27/25 1404 Cosigner Signature (if applicable): CC: Dr. Phuc Martines DO; Dr. George Polanco MD~ Signed [facility]07-01-2025 Hospital Discharge instructionsAdditional Instructions Date of Discharge: 04/27/25[facility] Work Phone: 1(471) 337-155407-01-2025 Discharge summary Author George Polanco [facility] Note Date/Time April 27, 2025 11:13 am [facility] Medical Records Department [address] [place] [address] Instructions for Home/Discharge Instructions 04/27/25 1112 MR#: [id number] Acct: [id number] Name: RAJENDRA LUCERO Rep #:[id number] 17 : [...] [Daily Multi-Vitamin] Tablet 1 tab PO DAILY Col[place] Saline 0.65 % aerosol,spray 1 spray intranasal [...] MD; Dr. Phuc Martines DO ~ Signed [facility] Work Phone: 1(640) 818-548307-01-2025 Discharge summary [facility] Medical Records Department [address] [place] [address] Instructions for Home/Discharge Instructions 04/27/25 1112 MR#: [id number] Acct: [id number] Name: RAJENDRA LUCERO Rep #:[id number] 17 : 1955 69 From: Georeg Willis PCP: Dr. Phuc Martines DO Status:AD [...] [Daily Multi-Vitamin] Tablet 1 tab PO DAILY [place]chester Saline 0.65 % aerosol,spray 1 spray intranasal [...] MD; Dr. Phuc Martines DO ~ Signed [facility]07-01-2025 [facility] Progress note Author [facility] Note Date/Time April 26, 2025 3:33 pm [facility] Medical Records Department [address] [facility] [place] [address] Progress Note - Hospitalist 04/26/25 1532 MR#: [id number] Acct: [id number] Name: GERAJENDRA Mata Bora Rep #:[id number] 16 : 1955 69 From: George Willis PCP: Dr. Phuc Martines DO Status:AD M IN Location: [place] [address] 1 Reason for Visit Reason for Visit: [...] 87.0 H, Lymph % (Auto) 5.2 L, [place] % (Auto) 5.9, Eos % (Auto) 0.9, [...] baseline and chronic alcohol use. Scheduled with roofing foreman for possible ablation. Patient was also having [...] it. She was also told by her roofing foreman Dr. Reza Elena to be cautious will [...] uses supplemental oxygen, no PAP therapy. 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 Diana gonzalez #11. DVT prophylaxis: Will [...] Std Deviation 54.2 H, RDW Coeff of Kalry 14.3, Plt Count 266, MPV 11.1, Immature Gran % (Auto) 0.700, Neut % (Auto) 87.0 H, Lymph % (Auto) 5.2 L, [place] % (Auto) 5.9, Eos % (Auto) 0.9, [...] Calcium 9.4 Charges/Coding Visit Charges Inpatient E&M: 03148 Subs Hosp L2 04/26/25 1533 <Electronically signed by George Polanco MD> Cosigner Signature (if applicable): CC: ~ Signed [facility] Work Phone: 1(395) 667-266106-30-2025 Progress note [facility] Medical Records Department [address] [place] [address] Progress Note - Hospitalist 04/26/25 1532 MR#: [id number] Acct: [id number] Name: RAJENDRA LUCERO Rep #:[id number] 16 : 1955 69 From: George Willis PCP: Dr. Phuc Martines, DO Status:AD M IN Location: [place] [address]- 1 Reason for Visit Reason for Visit: [...] 87.0 H, Lymph % (Auto) 5.2 L, [place] % (Auto) 5.9, Eos % (Auto) 0.9, [...] baseline and chronic alcohol use. Scheduled with roofing foreman for possible ablation. Patient was also having [...] it. She was also told by her roofing foreman Dr. Reza Elena to be cautious will [...] uses supplemental oxygen, no PAP therapy. 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 Diana gonzalez #11. DVT prophylaxis: Will [...] 87.0 H, Lymph % (Auto) 5.2 L, [place] % (Auto) 5.9, Eos % (Auto) 0.9, [...] Calcium 9.4 Charges/Coding Visit Charges Inpatient E&M: 89008 Subs Hosp L2 04/26/25 1533 Cosigner Signature (if applicable): CC: ~ Signed [facility]06-30-2025 Consult note Author Milena Rodas [facility] Note Date/Time April 27, 2025 4:05p m [facility] Medical Records Department [address] [place] [address] Counseling Note - Pharmacy 04/26/25 1022 MR#: [id number] Acct: [id number] Name: RAJENDRA LUCERO Rep #:[id number] 41 : 1955 69 From: Milena Rodas PCP: Dr. Phuc Martines, DO Status:AD M IN Y Location: [place] [address] Pharmacy [facility] Counseling Pharmacy Service has performed [...] sodium chloride 0.65 % nasal spray aerosol (Colchester Saline) 1 spray intranasal BID PRN dry [...] mcg chewable tablet 1,000 mcg PO QDAY fmospouwax98/03/25 nystatin 100,000 unit/gram topical cream 1 applic topical BID skin rash 04/23/25 atorvastatin 40 mg tablet 40 mg PO QHS 30 days #30 tabs 04/26/25 diltiazem HCl 180 mg capsule,extended release 24 hr 180 mg PO Q12 30 days #60 caps 04/26/25 04/26/25 1022 <Electronically signed by Milena Rodas> Date _ Milena Rodas Cosigner Signature (if applicable): Date CC: ~ Signed [facility] Work Phone: 1([phone]) 712-585606-30-2025 Discharge summary Author George Polanco [facility] Note Date/Time April 26, 2025 9:38 am [facility] Medical Records Department [address] [place] [address] Discharge Summary 04/26/25 0932 MR#: [id number] Acct: [id number] Name: RAJENDRA LUCERO Rep #:[id number] 55 : 1955 69 From: George Willis PCP: Dr. Phuc Martines, DO Status:AD M IN Location: [place] [id number]- 1 Providers Date of Admission: 04/23/25 Date [...] it. She was also told by her roofing foreman Dr. Reza Elena to be cautious will [...] uses supplemental oxygen, no PAP therapy. 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 Diana gonzalez #11. DVT prophylaxis: Will [...] 85.7 H, Lymph % (Auto) 6.3 L, [place] % (Auto) 6.2, Eos % (Auto) 1.0, [...] sodium chloride 0.65 % nasal spray aerosol ([place]chester Saline) 1 spray intranasal BID PRN dry [...] mcg chewable tablet 1,000 mcg PO QDAY puymomoqes48/03/25 nystatin 100,000 unit/gram topical cream 1 applic [...] 87.0 H, Lymph % (Auto) 5.2 L, [place] % (Auto) 5.9, Eos % (Auto) 0.9, [...] baseline and chronic alcohol use. Scheduled with roofing foreman for possible ablation. Patient was also having [...] 87.0 H, Lymph % (Auto) 5.2 L, [place] % (Auto) 5.9, Eos % (Auto) 0.9, [...] [Daily Multi-Vitamin] Tablet 1 tab PO DAILY [place] Saline 0.65 % aerosol,spray 1 spray intranasal [...] Self Care Charges/Coding Visit Charges Inpatient E&M: 27456 Disch Hosp >30min 04/26/25 0938 <Electronically signed by George Polanco MD> Cosigner Signature (if applicable): CC: Dr. Phuc Martines DO; Dr. George Polanco MD~ Signed [facility] Work Phone: 1(558) 449-911606-30-2025 Discharge summary Author George Polanco [facility] Note Date/Time April 26, 2025 9:32 am [facility] Medical Records Department [address] [place] [address] Instructions for Home/Discharge Instructions 04/26/25918 MR#: [id number] Acct: [id number] Name: RAJENDRA LUCERO Rep #:[id number] 31 : [...] [Daily Multi-Vitamin] Tablet 1 tab PO DAILY Col[place] Saline 0.65 % aerosol,spray 1 spray intranasal [...] MD; Dr. Phuc Martines DO ~ Signed [facility] Work Phone: [phone]) 908-278006-30-2025 Discharge summary [facility] Medical Records Department [address] [place] [address] Discharge Summary 04/26/25931 MR#: [id number] Acct: [id number] Name: RAJENDRA LUCERO Rep #:[id number] 55 : 1955 69 From: George Willis PCP: Dr. Phuc Martines DO Status:AD M IN [facility] Prov[facility] Date of Admission: 04/23/25 [...] it. She was also told by her roofing foreman Dr. Reza Elena to be cautious will [...] uses supplemental oxygen, no PAP therapy. 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 Diana gonzalez #11. DVT prophylaxis: Will [...] 85.7 H, Lymph % (Auto) 6.3 L, [place] % (Auto) 6.2, Eos % (Auto) 1.0, [...] sodium chloride 0.65 % nasal spray aerosol (Colchester Saline) 1 spray intranasal BID PRN dry [...] mcg chewable tablet 1,000 mcg PO QDAY mvxgsoiunm93/03/25 nystatin 100,000 unit/gram topical cream 1 applic [...] 87.0 H, Lymph % (Auto) 5.2 L, [place] % (Auto) 5.9, Eos % (Auto) 0.9, [...] baseline and chronic alcohol use. Scheduled with roofing foreman for possible ablation. Patient was also having [...] 87.0 H, Lymph % (Auto) 5.2 L, [place] % (Auto) 5.9, Eos % (Auto) 0.9, [...] [Daily Multi-Vitamin] Tablet 1 tab PO DAILY [place] Saline 0.65 % aerosol,spray 1 spray intranasal [...] Self Care Charges/Coding Visit Charges Inpatient E&M: 20033 Disch Hosp >30min 04/26/25 0938 Cosigner Signature (if applicable): CC: Dr. Phuc Martines DO; Dr. George Polanco MD~ Signed [facility]06-30-2025 Discharge summary [facility] Medical Records Department [address] [place] [address] Instructions for Home/Discharge Instructions 04/26/2519 MR#: [id number] Acct: [id number] Name: RAJENDRA LUCERO Rep #:[id number] 31 : [...] [Daily Multi-Vitamin] Tablet 1 tab PO DAILY Colchester Saline 0.65 % aerosol,spray 1 spray intranasal [...] MD; Dr. Phuc Martines DO ~ Signed [facility]06-30-2025 [facility]06-29-[facility] Progress note Author George Polanco [facility] Note Date/Time April 25, 2025 12:0 3pm [facility] Medical Records Department [address] [place] [address] Progress Note - Hospitalist 04/25/25 0903 MR#: [id number] Acct: [id number] Name: RAJENDRA LUCERO Rep #:[id number] : 1955 69 From: George Willis PCP: Dr. Phuc Martines, DO Status:AD M IN Location: [place] [address] Reason for Visit Reason for Visit: Diagnoses [...] 85.7 H, Lymph % (Auto) 6.3 L, [place] % (Auto) 6.2, Eos % (Auto) 1.0, [...] baseline and chronic alcohol use. Scheduled with roofing foreman for possible ablation. Patient was also having [...] it. She was also told by her roofing foreman Dr. Reza Elena to be cautious will [...] uses supplemental oxygen, no PAP therapy. 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 Diana gonzalez #11. DVT prophylaxis: Will [...] 85.7 H, Lymph % (Auto) 6.3 L, [place] % (Auto) 6.2, Eos % (Auto) 1.0, [...] TSH 1.970 Charges/Coding Visit Charges Inpatient E&M: 29393 Subs Hosp L2 04/25/25 1203 <Electronically signed by George Polanco MD> Cosigner Signature (if applicable): CC: ~ Signed [facility] Work Phone: 1([phone]) 511-113706-29-2025 Progress note [facility] Medical Records Department [address] [place] [address] Progress Note - Hospitalist 04/25/25 0903 MR#: [id number] Acct: [id number] Name: RAJENDRA LUCERO Rep #:[id number] : 1955 69 From: George Willis PCP: Dr. Phuc Martines, DO Status:AD M IN Location: [address] 1 Reason for Visit Reason for [...] 85.7 H, Lymph % (Auto) 6.3 L, [place] % (Auto) 6.2, Eos % (Auto) 1.0, [...] baseline and chronic alcohol use. Scheduled with roofing foreman for possible ablation. Patient was also having [...] it. She was also told by her roofing foreman Dr. Reza Elena to be cautious will [...] uses supplemental oxygen, no PAP therapy. 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 Diana gonzalez #11. DVT prophylaxis: Will [...] 85.7 H, Lymph % (Auto) 6.3 L, [place] % (Auto) 6.2, Eos % (Auto) 1.0, [...] TSH 1.970 Charges/Coding Visit Charges Inpatient E&M: 42809 Subs Hosp L2 04/25/25 1203 Cosigner Signature (if applicable): CC: ~ Signed [facility]06-28-2025 Progress note Author George Polanco [facility] Note Date/Time April 24, 2025 1:22 pm [facility] Medical Records Department [address] [facility] [place] [address] Progress Note - Hospitalist 04/24/25809 MR#: [id number] Acct: [id number] Name: RAJENDRA LUCERO Rep #:[id number] : 1955 69 From: George Willis PCP: Dr. Phuc Martines, DO Status:AD M IN Location: [place] [address] Reason for Visit Reason for Visit: Diagnoses [...] 83.8 H, Lymph % (Auto) 7.9 L, [place] % (Auto) 6.6, Eos % (Auto) 0.8, [...] Clarity Clear, Urine pH 6.0, Ur Specific Barco 1.015, Urine Protein 30 H, Urine Glucose [...] 83.2 H, Lymph % (Auto) 6.8 L, [place] % (Auto) 8.0, Eos % (Auto) 1.3, [...] IMPRESSION: Cardiomegaly with mild congestion. Reading Location: [facility] Brain CT 04/23/25 18:04 IMPRESSION: 1. No acute intracranial hemorrhage, midline shift or mass effect. If symptoms persist, further evaluation with MRI is recommended. 2. Mild small vessel ischemic/degenerative changes. Reading Location: [facility] Physical Exam Narrative Seen and examined. Patient admitted for SOB and, rapid heart rate, new onset atrial flutter, COPD on 3 to 6 L of oxygen at baseline and chronic alcohol use. Scheduled with roofing foreman for possible ablation. Patient was also having [...] it. She was also told by her roofing foreman Dr. Reza Elena to be cautious will [...] uses supplemental oxygen, no PAP therapy. 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 Diana gonzalez #11. DVT prophylaxis: Will [...] 83.8 H, Lymph % (Auto) 7.9 L, [place] % (Auto) 6.6, Eos % (Auto) 0.8, [...] Clarity Clear, Urine pH 6.0, Ur Specific Barco 1.015, Urine Protein 30 H, Urine Glucose [...] 83.2 H, Lymph % (Auto) 6.8 L, [place] % (Auto) 8.0, Eos % (Auto) 1.3, [...] TSH 1.970 Charges/Coding Visit Charges Inpatient E&M: 86613 Subs Hosp L2 04/24/25 1321 <Electronically signed by George Polanco MD> Cosigner Signature (if applicable): CC: ~ Signed ADDENDUM by Dr. George Polanco MD on 04/24/25 at 1322 Addendum Started on atorvastatin 40 mg daily at bedtime 04/24/25 1322<Electronically signed by George Polanco MD> Cosigner Signature (if applicable): cc: ~* Signed [facility] Work Phone: 1(424) 497-716606-28-2025 Progress note [facility] Medical Records Department [address] [place] [address] Progress Note - Hospitalist 04/24/25809 MR#: [id number] Acct: [id number] Name: RAJENDRA LUCERO Rep #:[id number] : 1955 69 From: George Willis PCP: Dr. Phuc Martines, DO Status:AD M IN [facility] Reason for Visit Reason for [...] 83.8 H, Lymph % (Auto) 7.9 L, [place] % (Auto) 6.6, Eos % (Auto) 0.8, [...] Clarity Clear, Urine pH 6.0, Ur Specific Barco 1.015, Urine Protein 30 H, Urine Glucose [...] 83.2 H, Lymph % (Auto) 6.8 L, [place] % (Auto) 8.0, Eos % (Auto) 1.3, [...] IMPRESSION: Cardiomegaly with mild congestion. Reading Location: [facility] Brain CT 04/23/25 18:04 IMPRESSION: 1. No acute intracranial hemorrhage, midline shift or mass effect. If symptoms persist, further evaluation with MRI is recommended. 2. Mild small vessel ischemic/degenerative changes. Reading Location: [facility] Physical Exam Narrative Seen and examined. Patient admitted for SOB and, rapid heart rate, new onset atrial flutter, COPD on 3 to 6 L of oxygen at baseline and chronic alcohol use. Scheduled with roofing foreman for possible ablation. Patient was also having [...] it. She was also told by her roofing foreman Dr. Reza Elena to be cautious will [...] uses supplemental oxygen, no PAP therapy. 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 Diana gonzalez #11. DVT prophylaxis: Will [...] 83.8 H, Lymph % (Auto) 7.9 L, [place] % (Auto) 6.6, Eos % (Auto) 0.8, [...] Clarity Clear, Urine pH 6.0, Ur Specific Barco 1.015, Urine Protein 30 H, Urine Glucose [...] 83.2 H, Lymph % (Auto) 6.8 L, [place] % (Auto) 8.0, Eos % (Auto) 1.3, [...] TSH 1.970 Charges/Coding Visit Charges Inpatient E&M: 36624 Subs Hosp L2 04/24/25 1321 Cosigner Signature (if applicable): CC: ~ Signed ADDENDUM by Dr. George Polanco MD on 04/24/25 at 1322 Addendum Started on atorvastatin 40 mg daily at bedtime 04/24/25 1322 Cosigner Signature (if applicable): cc: ~* Signed [facility]06-28-2025 Discharge summary Author Cele Morgan [facility] Note Date/Time April 24, 2025 12:0 0am [facility] Medical Records Department [address] [place] [address] Emergency Department Summary 04/23/25 MR#: [id number] Acct: [id number] Name: RAJENDRA LUCERO Rep #:[id number] 26 : 1955 69 From: Cele LYNN PCP: Dr. Phuc Martines, DO Status:AD M IN [facility] H[facility] <LEAH Cooley - Last [...] BID PRN dry 02/19/25 Unknown History aerosol ([place]chester Saline) nasal passages triamcinolone acetonide 0.5 % [...] <LEAH Cooley - Last Filed: 04/23/25 21:52> [facility] Narrative Medical decision making narrative: Patient presenting [...] 83.8 H Lymph % (Auto) 7.9 L [place] % (Auto) 6.6 Eos % (Auto) 0.8 [...] Clarity Clear Urine pH 6.0 Ur Specific Barco 1.015 Urine Protein 30 H Urine Glucose [...] IMPRESSION: Cardiomegaly with mild congestion. Reading Location: [facility] Brain CT 04/23/25 18:04 IMPRESSION: 1. No acute intracranial hemorrhage, midline shift or mass effect. If symptoms persist, further evaluation with MRI is recommended. 2. Mild small vessel ischemic/degenerative changes. Reading Location: [facility] EKG Initial EKG: Comments: 129 bpm, atrial flutter, no ST elevation, interpreted by attending ED physician <Dr. Clay Hager MD - Last Filed: 04/23/25 20:27> [facility] MDM Narrative Medical decision making narrative: Patient [...] 83.8 H Lymph % (Auto) 7.9 L [place] % (Auto) 6.6 Eos % (Auto) 0.8 [...] Clarity Clear Urine pH 6.0 Ur Specific Barco 1.015 Urine Protein 30 H Urine Glucose [...] IMPRESSION: Cardiomegaly with mild congestion. Reading Location: [facility] Brain CT 04/23/25 18:04 IMPRESSION: 1. No acute intracranial hemorrhage, midline shift or mass effect. If symptoms persist, further evaluation with MRI is recommended. 2. Mild small vessel ischemic/degenerative changes. Reading Location: [facility] Discharge Plan Triage Chief Complaint: Palpitations ED [...] [Daily Multi-Vitamin] Tablet 1 tab PO DAILY [place] Saline 0.65 % aerosol,spray 1 spray intranasal [...] DO [Primary Care Provider] - Print Language: Luxembourgish Disposition Disposition: Acute Care Hospital [facility] What to do if you have Problems For any increased pain, shortness of breath, bleeding, nausea or vomiting, chestpain, or any unexpected problems, contact your Primary Care Provider. Call [facility] ([phone]) or report to the closest Emergency Room. Call 911 if necessary. 04/23/25 2152 <Electronically signed by Cele LYNN> Cosigner Signature (if applicable): 04/24/25 0000 <Electronically signed by Clay Hager MD> CC: Dr. Phuc Martines, ~ Signed [facility] Work Phone: 1(482) 986-935406-28-2025 History and physical note Author Virginia Henriquez [facility] Note Date/Time April 23, 2025 10:1 5pm [facility] Medical Records Department [address] [place] [address] H&P Exam - Hospitalist 04/23/252148 MR#: [id number] Acct: [id number] Name: RAJENDRA LUCERO Rep #:[id number] : 1955 69 From: Virginia Henriquez MD PCP: Dr. Phuc Martines, Status:AD M IN Location: [facility] [id number] HPI - General General Date of [...] abuse recently cut back [facility] with history of increased [...] 1 and placed on a diltiazem drip. [facility] Medical History (Updated 04/23/25 @ [...] BID PRN dry 02/19/25 Unknown History aerosol ([place] Saline) nasal passages triamcinolone acetonide 0.5 % [...] 83.8 H, Lymph % (Auto) 7.9 L, [place] % (Auto) 6.6, Eos % (Auto) 0.8, [...] Clarity Clear, Urine pH 6.0, Ur Specific Barco 1.015, Urine Protein 30 H, Urine Glucose [...] IMPRESSION: Cardiomegaly with mild congestion. Reading Location: [facility] Brain CT 04/23/25 18:04 IMPRESSION: 1. No acute intracranial hemorrhage, midline shift or mass effect. If symptoms persist, further evaluation with MRI is recommended. 2. Mild small vessel ischemic/degenerative changes. Reading Location: [facility] Assessment & Plan Assessment/Plan (1) Atrial flutter with rapid ventricular response: PLAN: Plan The patient is a 69 y/o F w/ PMHx: Hx VTE (DVT, PE) on eliquis, Morbid obesity, PAF/Flutter, HTN, HLD, COPD w/ Chronic Hypoxic Respiratory Failure (3L-6L NC), Former tobacco use, ROXY not on PAP therapy, EtOH abuse recently cutting back [facility] ED on 04[facility]23/2025 with history of increaseddyspnea [...] increase her alcohol not significantly but her roofing foreman Dr. Elena did discuss this with her [...] Time: 16minutes. Charges/Coding Visit Charges Inpatient E&M: 73164 Init Hosp L3 Procedures Hospitalists Procedures: 07309 Advncd Care Plan 30 Min 04/23/252214 <Electronically signed by Virginia Henriquez MD> Cosigner Signature (if applicable): CC: Dr. Virginia Henriquez MD; Dr. Phuc Martines, DO~ Signed [facility] Work Phone: 1([phone]) 188-659006-28-2025 Discharge summary [facility] Medical Records Department [address] [place] [address] Emergency Department Summary 04/23/25 MR#: [id number] Acct: [id number] Name: RAJENDRA LUCERO Rep #:[id number] : 1955 69 From: Cele LYNN PCP: Dr. Phuc Martines, DO Status:AD M IN Location: [place] [address] HPI History of Present Illness Chief Complaint: [...] chest pain, abdominal pain, nausea, and vomiting. [facility] Medical History Pulmonary nodule Atrial [...] BID PRN dry 02/19/25 Unknown History aerosol ([place] Saline) nasal passages triamcinolone acetonide 0.5 % [...] 83.8 H Lymph % (Auto) 7.9 L [place] % (Auto) 6.6 Eos % (Auto) 0.8 [...] Clarity Clear Urine pH 6.0 Ur Specific Barco 1.015 Urine Protein 30 H Urine Glucose [...] IMPRESSION: Cardiomegaly with mild congestion. Reading Location: [facility] Brain CT 04/23/25 18:04 IMPRESSION: 1. No acute intracranial hemorrhage, midline shift or mass effect. If symptoms persist, further evaluation with MRI is recommended. 2. Mild small vessel ischemic/degenerative changes. Reading Location: [facility] EKG Initial EKG: Comments: 129 bpm, [...] 83.8 H Lymph % (Auto) 7.9 L [place] % (Auto) 6.6 Eos % (Auto) 0.8 [...] Clarity Clear Urine pH 6.0 Ur Specific Barco 1.015 Urine Protein 30 H Urine Glucose [...] IMPRESSION: Cardiomegaly with mild congestion. Reading Location: [facility] Brain CT 04/23/25 18:04 IMPRESSION: 1. No acute intracranial hemorrhage, midline shift or mass effect. If symptoms persist, further evaluation with MRI is recommended. 2. Mild small vessel ischemic/degenerative changes. Reading Location: [facility] Discharge Plan Triage Chief Complaint: Palpitations [...] [Daily Multi-Vitamin] Tablet 1 tab PO DAILY [place] Saline 0.65 % aerosol,spray 1 spray intranasal [...] DO [Primary Care Provider] - Print Language: Luxembourgish Disposition Disposition: Acute Care Hospital [facility] What to do if you have Problems For any increased pain, shortness of breath, bleeding, nausea or vomiting, chestpain, or any unexpected problems, contact your Primary Care Provider. Call [facility] ([phone]) or report tothe closest Emergency Room. Call 911 if necessary. 04/23/252151 Cosigner Signature (if applicable): 04/24/25 0000 CC: Dr. Phuc Martines DO ~ Signed [facility]06-27-2025 Evaluation note* Diagnosis Onset Date Resolution Status [...] Atrial fibrillation acute Augus t 2024 2:33pm senior care current use of anticoagulant acute June 08 2:33pm Atrial fibrillation acute Octob er 2024 11:00am Encounter for monitoring anti-arrhythmic therapy acute July 30, 2025 11:00am [facility] Work Phone: [phone] 550-761306-27-2025 History and physical note [facility] Medical Records Department [address] [place] [address] H&P Exam - Hospitalist 04/23/252148 MR#: [id number] Acct: [id number] Name: RAJENDRA LUCERO Rep #:[id number] : 1955 69 From: Virginia Henriquez MD PCP: Dr. Phuc Martines, DO Status:AD M IN Location: [facility] [id number] HPI - General General Date of [...] abuse recently cut back who [facility] with history of [...] 1 and placed on a diltiazem drip. [facility] Medical History (Updated 04/23/25 @ [...] BID PRN dry 02/19/25 Unknown History aerosol ([place] Saline) nasal passages triamcinolone acetonide 0.5 % [...] 83.8 H, Lymph % (Auto) 7.9 L, [place] % (Auto) 6.6, Eos % (Auto) 0.8, [...] Clarity Clear, Urine pH 6.0, Ur Specific Barco 1.015, Urine Protein 30 H, Urine Glucose [...] IMPRESSION: Cardiomegaly with mild congestion. Reading Location: [facility] Brain CT 04/23/25 18:04 IMPRESSION: 1. No acute intracranial hemorrhage, midline shift or mass effect. If symptoms persist, further evaluation with MRI is recommended. 2. Mild small vessel ischemic/degenerative changes. 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 Elena did discuss this with her [...] Time: 16minutes. Charges/Coding Visit Charges Inpatient E&M: 46802 Init Hosp L3 Procedures Hospitalists Procedures: 65580 Advncd Care Plan 30 Min 04/23/25 7458 Cosigner Signature (if applicable): CC: Dr. Virginia Henriquez MD; Dr. Phuc Martines, DO~ Signed [facility]06-27-2025 Radiology Diagnostic study note [facility] Imaging Services [address] [place] [address] Brain/Head without Contrast MR#: [id number] Acct: [id number] Name: RAJENDRA LUCERO Rep #: [id number] : 1955 F 69 From: Bev Drummond MD PCP: Dr. Phuc Martines DO Status: RE G ER Study:Brain/Head without Contrast Date of Exa m: 04/23/25 Exam# [id number] Ordering Dr: Krishan Hager MD EXAM: CT [...] Mild small vessel ischemic/degenerative changes. Reading Location: [facility] CC: Dr. Clay Hager MD; Dr. Phuc Martines DO ~ Supreme Court Justice: Signed [facility]06-27-2025 Radiology Diagnostic study note [facility] Imaging Services [address] [place] [address] Chest PA and Lateral MR#: [id number] Acct: [id number] Name: RAJENDRA LUCERO Rep #: [id number] : 1955 F 69 From: Bev Drummond MD PCP: Dr. Phuc Martines DO Status: RE G ER Study:Chest PA and Lateral Date of Exam: 04/23/25 Exam# [id number] Ordering Dr: Cele Garcia EXAM: XR Chest, 2 Views CLINICAL INDICATION: SOB TECHNIQUE: Frontal and lateral views of the chest. COMPARISON: No relevant prior studies available. FINDINGS: LUNGS AND PLEURAL SPACES: See below. HEART: Cardiomegaly with mild congestion. MEDIASTINUM: Unremarkable. Normal mediastinal contour. BONES/JOINTS: Unremarkable. No acute fracture. RAD/Chest PA and Lateral IMPRESSION: Cardiomegaly with mild congestion. Reading Location: [facility] CC: Dr. Phuc Martines DO; LEAH Cooley ~ Supreme Court Justice: Signed [facility]06-27-2025 Instructions* Patient Instructions* Tyra Carson APRN.CNP - 04/23/2025 3:31 PM EDT Sent patient to ER documented in this encounterCleveland [facility]06-27-2025 NoteHNO ID: [id number] Author: TYRA CARSON APRN.CNP Service: ? Author [...] week for further evaluation. and Recording using Optini software for draft documentation of the visit was discussed with the patient/authorized ict sales representative; all questions welcomed and answered. Patient/authorized ict sales representative agreed to proceed HISTORY OF PRESENT ILLNESS: Linwood was in the hospital in January for new onset of atrial flutter. She was initiated on eliquis and metoprolol and now being seen by cardiology. She was referred to a [facility] cardio electro doc and is in [...] disease) (HCC) 02/03/2010 Coronary artery disease No NJ, CHF. No heart cath. Diverticulosis of colon [...] Sig nitrofurantoin monohydrate a (more content not included)...[facility]06-27-[facility] History of Present illness Narrative* Tyra Carson, RESIDENCE LIFE COORDINATOR.FILTERS ASSEMBLER - 04/23/2025 2:49 PM EDT This is [...] week for further evaluation. and Recording using Optini software for draft documentation of the visit was discussed with thepatient/authorized ict sales representative; all questions welcomed and answered. Patient/authorized ict sales representative agreed to proceed HISTORY OF PRESENT ILLNESS: Linwood was in the hospital in January for new onset of atrial flutter. She was initiated on eliquis and metoprolol and now being seen by cardiology. She was referred to a [facility] cardio electro doc and [place] the [...] disease) (HCC) 02/03/2010 Coronary artery disease No NJ, CHF. No heart cath. Diverticulosis of colon [...] hours as needed for wheezing/shortness of breath. dzdzezmtpfg-cdcffpwli-zdpgfigq (TRELEGY ELLIPTA) 200-62.5-25 mcg inhalation powder Inhale [...] her presentation/symptoms/assessment , she was sent to [facility] ER for further evaluation. Her daughter was coming to pick her up. Report was called to [facility] ER physician/hospitalist. Discussed treatment plan and patient voices understanding. Patient's questions answered appropriately. Medications and potential side effects were discussed and patient voices understanding. Medical Decision Making: Problems: High: Chronic illness with severe change Risk: High: Decision on hospitalization Medical Decision Making Level: 5 - High Return to the office as scheduled or as needed for worsening/no improvement. Tyra Carson APRN.FILTERS ASSEMBLER Recording using Optini software for draft documentation of the visit was discussed with the patient/authorized ict sales representative; all questions welcomed and answered. Patient/authorized ict sales representative agreed to proceed documented in this encounterCleveland Clinic [facility]06-26-2025 Telephone encounter Note * Telephone Encounter - Sandra Landis MA - 04/22/2025 8:29 AM EDT Pt was notified of the results. Pt verbalized understanding. Sandra Landis MA [facility]06-26-2025 Miscellaneous Notes* Telephone Encounter - Sandra [...] is helping with symptoms. documented in this encounterCleveland Clinic [facility]06-26-2025 Telephone encounter Note * Telephone Encounter [...] prescribed if it is helping with symptoms. [facility] Work Phone: 1(526) 103-746606-24-2025 Note* Addendum Note - Milena Chang LPN - 04/20/2025 11:12 AM EDTAddended by: MILENA CHANG on: 04/20/2025 11:12 AM Modules accepted: Orders [facility]06-24-2025 Miscellaneous Notes* Addendum Note - Milena Chang LPN - 04/20/2025 11:12 AM EDTAddended by: MILENA CHANG on: 04/20/2025 11:12 AM Modules accepted: Orders documented in this encounterCleveland Clinic [facility]06-24-2025 NoteHNO ID: [id number] Author: DAMON EUGENE APRN.[facility] Service: ? Author Type: Nurse Practitioner Type: [...] week for further evaluation. and Recording using Optini software for draft documentation of the visit was discussed with the patient/authorized ict sales representative; all questions welcomed and answered. Patient/authorized ict sales representative agreed to proceed MDM ProceduresWright[facility]06-[facility] History of Present illness Narrative* Damon Eugene APRN.FILTERS ASSEMBLER - 04/20/2025 10:23 AM EDT [employer] [...] of the visit was discussed with thepatient/authorized ict sales representative; all questions welcomed and answered. Patient/authorized ict sales representative agreed to proceed MDM Procedures documented in this encounterC[facility]06-04-2025 NoteHNO ID: [id number] Author: JANETTE DAMON APRN.CNP Service: ? Author Type: Nurse Practitioner Type: Progress Notes Filed: 03/31/2025 13:06 Note Text: 03/31/2025 Patient presents with: BP Check: Had appointment with cardiology yesterday; MANI Elena Recording using ambient AI software for draft documentation of the visit was discussed with the patient/authorized ict sales representative; all questions welcomed and answered. Patient/authorized ict sales representative agreed to proceed SUBJECTIVE: This is a 69 year old that is here today for Above Complaints.. Atrial Flutter: - Recent consultation with Dr. Elena, who referred her to Dr. Marcos Santos, an telecommunications analyst, for potential ablation. - Dr. Elena indicated [...] (HCC) CHF (congestive heart failure) ([facility]) Chronic hypoxemic respiratory failure ([facility]) COPD (chronic obstructive pulmonary disease) ([facility]) 02/03/2010 Coronary artery disease No NJ, CHF. No heart cath. Diverticulosis of colon [...] hours as needed for wheezing/shortness of breath. scszjuylylr-owolgwklz-vxtxhzkq (TRELEGY ELLIPTA) 200-62.5-25 mcg inhalation powder Inhale [...] 03/01/2026 Diabetes Screening du (more content not included)...[facility] 03-31-2025 History of Present illness Narrative* PodlogarJanette APRN.ELVIA - 03/31/2025 12:50 PM EDT 03/31/2025 Patient presents with: BP Check: Had appointment with cardiology yesterday; G Dr. Elena Recording using Optini software for draft documentation of the visit was discussed with the patient/authorized ict sales representative; all questions welcomed and answered. Patient/authorized ict sales representative agreed to proceed SUBJECTIVE: This is a 69 year old that is here today for Above Complaints.. Atrial Flutter: - Recent consultation with Dr. Elena, who referred her to Dr. Marcos Santos, an telecommunications analyst, for potential ablation. - Dr. Elena indicated [...] disease) (HCC) 02/03/2010 Coronary artery disease No NJ, CHF. No heart cath. Diverticulosis of colon [...] hours as needed for wheezing/shortness of breath. vamhcvkhvmx-xxecpqsft-nquqapab (TRELEGY ELLIPTA) 200-62.5-25 mcg inhalation powder Inhale [...] (I48.92) - Referral to Dr. Marcos Santos, telecommunications analyst, for potential ablation procedure. - Patient understands the procedure may improve cardiac function and respiratory status. - Upcoming sleep test ordered by Pulmonology; patient considering cancellation due to previous experience and cost concerns. Advised to inform Pulmonology if decision to cancel is made. - Follow-up with Pulmonology scheduled in May. Janette Damon APRN.FILTERS ASSEMBLER Prescription instructions reviewed with patient as applicable. 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 documented in this encounterCleveland Clinic [facility]05-14-2025 History of Present illness Narrative* Rajendra Goodman APRN.CNP - 03/10/2025 1:00 PM EDT Images from the original note were not included. Pulmonary Medicine Patients name: Rajendra Palumbo PCP: Phuc Martines DO CC: concern for ROXY HPI: Rajendra Lucero is a 69 year old female former 57-jaff-yvbh smoker, quitting in 2008 with PMH significant [...] that time. She was just hospitalized at [facility] 02/19 - 02/23 for SOB/leg swelling [...] heart failure) (HCC) Chronic hypoxemic respiratory failure ([facility]) COPD (chronic obstructive pulmonary disease) ([facility]) 02/03/2010 Coronary artery disease No NJ, CHF. No heart cath. Diverticulosis of colon [...] ELLIPTA 200-62.5-25 mcg inhalation powder Generic drug: wfrqmaqlajh-ngvjlauvm-tdmcvyjl Inhale 1 Puff as instructed once daily. [...] Recommendations: Followup LDCT in 6 months Reference: [employer]. Lung CT Screening Reporting and Data System (Lung-RADS). Available at: http://www.acr.org/Quality-Safety/Resources/LungRADS Supreme Court Justice: PAT Transcribe Date/Time: Jan 25 2025 11:45A Dictated by : VIDAL PULLIAM MD This examination was interpreted and the report reviewed and electronically signed by: VIDAL PULLIAM MD on Jan 25 2025 11:51AM EST Results-Findings * * *Final Report* * * DATE OF EXAM: Jan 25 2025 11:06AM [facility] 0561 - CT LUNG FOLLOWUP [facility] / PROCEDURE REASON: Lung nodule, < 6mm, high cancer risk * * * * Physician Interpretation * * * * EXAMINATION: CT LUNG FOLLOWUP WO IVCON CLINICAL HISTORY: Lung nodules Technique: Spiral CT acquisition of the chest from the thoracic inlet to the upper abdomen without contrast. MQ: [id number]_6 Followup LDCT Patient characteristics: * Fhry-cz-Yiece: 1955; Age at exam: 69 years * Gender: Female * Lung Disease: Asymptomatic (no signs or symptoms of lung disease) * Number of Pack Years: 38 * Current smoker (=0) or Number of Years since Quit: 15 * Ordering provider and NPI: MARICRUZ CAMP [id number] * Interpreting radiologist and NPI: Nicole [id number] Exam acquisition parameters: * Exam Date: 01/25/2025 11:06 AM * Site: [facility] * * CT System Dial Marker: Open Garden * CT System Model: Sensation * Tube [...] which included preparing to see the patient, qdsc-vq-tlpg patient care, completing clinical documentation, performing a medically appropriate examination, counseling and educating the patient/family/caregiver, and ordering medications, tests,or procedures. documented in this encounterC[facility]05-14-2025 NoteHNO ID: [id number] Author: RAJENDRA GOODMAN APRN.CNP Service: ? Author Type: Nurse Practitioner Type: Progress Notes Filed: 03/10/2025 13:47 Note Text: Pulmonary Medicine Patients name: Rajendra Palumbo PCP: Phuc Martines DO CC: concern for ROXY HPI: Rajendra Lucero is a 69 year old female former 74-ubui-kffi smoker, quitting in 2008 with PMH significant [...] that time. She was just hospitalized at [facility] 02/19 - 02/23 for SOB/leg swelling [...] disease) (HCC) 02/03/2010 Coronary artery disease No NJ, CHF. No heart cath. Diverticulosis of colon [...] ELLIPTA 200-62.5-25 mcg inhalation powder Generic drug: wahrsijvdtq-nkmphmyrv-ztxjobjb Inhale 1 Puff as instructed once daily. [...] Recommendations: Followup LDCT in 6 months Reference: [place] (more content not included)...[facility]05-05-[facility] Instructions* Patient Instructions* Janette Damon APRN.CNP - 03/01/2025 12:45 PM EDT Follow-up with pulmonology and discuss possible sleep apnea Make follow-up with cardiology Hold Amlodipine for now documented in this encounterC[facility]05-[facility] History of Present illness Narrative* Janette Damon APRN.CNP - 03/01/2025 12:20 PM EDT 02/26/2025 Patient presents with: Hospital F/U: [facility] COPD SUBJECTIVE: This is a 69 year old that is here today for Above Complaints. HOSPITAL/ER FOLLOW UP: Reason for visit: SOB, and leg swelling Which facility: [facility] Date of visit: 02/19/2025-02/23/2025 Diagnosis: COPD, [...] as yet. Was wanting to stay within [facility] system. Denies dyspnea, orthopnea wheezing, chest pain, palpitations or leg swelling. 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 Last appointment on 12/25/2024. Uses 3/4L/NC at rest and 6 L/NC with exertion. She feels her breathing as at her baseline. ER records reviewed PAST MEDICAL HISTORY Diagnosis Date Chronic hypoxemic respiratory failure (HCC) COPD (chronic obstructive pulmonary disease) (HCC) 02/03/2010 Coronary artery disease No NJ, CHF. No heart cath. Diverticulosis of colon [...] hours as needed for wheezing/shortness of breath. ntbkirxiluf-msxowntsr-uylsimte (TRELEGY ELLIPTA) 200-62.5-25 mcg inhalation powder Inhale [...] 427.32, ICD10: I48.92 - she follow-up with [facility] cardiology if unable to get appointment [...] which included preparing to see the patient, ifbr-ga-bqxl patient care, completing clinical documentation, obtaining and/or reviewing separately obtained history, performing a medically appropriate examination, counseling and educating the pat ient/family/caregiver, and ordering medications, tests, or procedures. documented in this encounterC[facility]05-05-2025 NoteHNO ID: [id number] Author: JANETTE DAMON APRN.CNP Service: ? Author Type: Nurse Practitioner Type: Progress Notes Filed: 03/01/2025 14:15 Note Text: 02/26/2025 Patient presents with: Hospital F/U: [facility] COPD SUBJECTIVE: This is a 69 year old that is here today for Above Complaints. HOSPITAL/ER FOLLOW UP: Reason for visit: SOB, and leg swelling Which facility: [facility] Date of visit: 02/19/2025-02/23/2025 Diagnosis: COPD, [...] as yet. Was wanting to stay within [facility] system. Denies dyspnea, orthopnea wheezing, chest pain, palpitations or leg swelling. Follows with F manufacturing maintenance technician. Last appointment on 12/25/2024. Uses 3/4L/NC at rest and 6 L/NC with exertion. She feels her breathing as at her baseline. ER records reviewed PAST MEDICAL HISTORY Diagnosis Date Chronic hypoxemic respiratory failure (HCC) COPD (chronic obstructive pulmonary disease) (HCC) 02/03/2010 Coronary artery disease No [place], CHF. No heart cath. Diverticulosis of colon [...] hours as needed for wheezing/shortness of breath. dfinjbvvgnr-eyvobeicl-kkhebbga (TRELEGY ELLIPTA) 200-62.5-25 mcg inhalation powder Inhale [...] due on 01/13/2030 In (more content not included)...[facility]04-29-2025 Discharge summary Author [facility]ee [facility] Note Date/Time February 23, 2025 1:2 2pm [facility] Medical Records Department [address] [place] [address] Instructions for Home/Discharge Instructions 02/23/25 1320 MR#: [id number] Acct: [id number] Name: RAJENDRA LUCERO Rep #:[id number] : [...] [Daily Multi-Vitamin] Tablet 1 tab PO DAILY [place] Saline 0.65 % aerosol,spray 1 spray intranasal [...] DO; Dr. Kym Norton MD ~ Signed [facility] Work Phone: 1([phone]) 244-461304-29-2025 Discharge summary Author Yee Jones [facility] Note Date/Time February 23, 2025 2:4 9pm [facility] Medical Records Department [address] [place] [address] Discharge Summary 02/23/25 1322 MR#: [id number] Acct: [id number] Name: RAJENDRA LUCERO Rep #:[id number] : 1955 69 From: Yee Jones MD PCP: Dr. Phuc Martines DO Status:AD M IN Location: [facility] [id number] Providers Date of Admission: 02/19/25 Date [...] sodium chloride 0.65 % nasal spray aerosol ([place] Saline) 1 spray intranasal BID PRN dry [...] (Auto) 78.1 H, Lymph % (Auto) 11.2 L,[place] % (Auto) 7.9, Eos % (Auto) 1.7, [...] [Daily Multi-Vitamin] Tablet 1 tab PO DAILY [place] Saline 0.65 % aerosol,spray 1 spray intranasal [...] Self Care Charges/Coding Visit Charges Inpatient E&M: 48079 Disch Hosp >30min 02/23/25 1449 <Electronically signed by Yee Jones MD> Cosigner Signature (if applicable): CC: Dr. Phuc Martines DO; Dr. Yee Jones MD~ Signed [facility] Work Phone: 1(740) 801-269504-29-2025 Discharge summary [facility] Medical Records Department [address] [place] [address] Discharge Summary 02/23/25 1322 MR#: [id number] Acct: [id number] Name: RAJENDRA LUCERO Rep #:[id number] : 1955 69 From: Yee Jones MD PCP: Dr. Phuc Martines DO Status:AD M IN Location: [place] [address] Providers Date of Admission: 02/19/25 Date of [...] sodium chloride 0.65 % nasal spray aerosol ([place]chester Saline) 1 spray intranasal BID PRN dry [...] (Auto) 78.1 H, Lymph % (Auto) 11.2 L,[place] % (Auto) 7.9, Eos % (Auto) 1.7, [...] [Daily Multi-Vitamin] Tablet 1 tab PO DAILY [place] Saline 0.65 % aerosol,spray 1 spray intranasal [...] Self Care Charges/Coding Visit Charges Inpatient E&M: 67731 Disch Hosp >30min 02/23/25 1449 Cosigner Signature (if applicable): CC: Dr. Phuc Martines DO; Dr. Yee Jones MD~ Signed [facility]04-29-[address] [facility] Medical Records Department [address] [place] [address] Counseling Note - Pharmacy 02/23/25 1410 MR#: [id number] Acct: [id number] Name: RAJENDRA LUCERO Rep #:[id number] : 1955 69 From: Milena Rodas PCP: Dr. Phuc Martines DO Status:AD M IN Location: [facility] [id number] Pharmacy [facility] Service has performed discharge [...] understanding of their dischargemedications. Patient counseled by student outreach coordinatorPete. Medications at Discharge Home Medications Oxygen, Home [...] sodium chloride 0.65 % nasal spray aerosol ([place]chester Saline) 1 spray intranasal BID PRN dry [...] Signature (if applicable): Date CC: ~ Signed [facility]04-29-2025 Discharge summary [facility] Medical Records Department [address] [place] [address] Instructions for Home/Discharge Instructions 02/23/25 1320 MR#: [id number] Acct: [id number] Name: RAJENDRA LUCERO Rep #:[id number] : [...] [Daily Multi-Vitamin] Tablet 1 tab PO DAILY [place] Saline 0.65 % aerosol,spray 1 spray intranasal [...] DO; Dr. Kym Norton MD ~ Signed [facility]04-29-[facility] Progress note Author [facility] Note Date/Time February 22, 2025 4:4 4pm [facility] Medical Records Department [address] [place] [address] Progress Note 02/22/25 1411 MR#: [id number] Acct: [id number] Name: RAJENDRA LUCERO Rep #:[id number] : 1955 69 From: Yee Jones MD PCP: Dr. Phuc Martines DO Status:AD M IN Location: [place] [address] Subjective Subjective Patient seen and examined. She [...] with ambulation. Charges/Coding Visit Charges Inpatient E&M: 90248 Subs Hosp L2 02/22/25 1644 <Electronically signed by Yee Jones MD> Yee Jones MD Cosigner Signature (if applicable): CC: ~ Signed [facility] Work Phone: 1(340) 513-613204-28-2025 Progress note [facility] Medical Records Department [address] [place] [address] Progress Note 02/22/25 1411 MR#: [id number] Acct: [id number] Name: RAJENDRA LUCERO Rep #:[id number] : 1955 69 From: Yee Jones MD PCP: Dr. Phuc Martines, DO Status:AD M IN Location: [place] [address] Subjective Subjective Patient seen and examined. She [...] with ambulation. Charges/Coding Visit Charges Inpatient E&M: 08842 Subs Hosp L2 02/22/25 1256 Yee Herron Signature (if applicable): CC: ~ Signed [facility]04-27-2025 Progress note Author Claudia Valerio [facility] Note Date/Time February 21, 2025 3:2 8pm [facility] Medical Records Department [address] [place] [address] Progress Note - Hospitalist 02/21/25 1144 MR#: [id number] Acct: [id number] Name: RAJENDRA LUCERO Rep #:[id number] : 1955 69 From: Claudia Valerio DO PCP: Dr. Phuc Martines, DO Status:AD M IN Location: [place] [address] Reason for Visit Reason for Visit: Shortness [...] follow-up and would like to follow-up at [facility]--> she stated she would get a [...] follows with pulmonary medicine at [facility] - Does not seem to be [...] on admission Charges/Coding Visit Charges Inpatient E&M: 30145 Subs Hosp L2 02/21/25 1528 <Electronically signed by Claudia Valerio DO> Cosigner Signature (if applicable): CC: ~ Signed [facility] Work Phone: 1(418) 270-646404-27-2025 Progress note [facility] Medical Records Department [address] [place] [address] Progress Note - Hospitalist 02/21/25 1144 MR#: [id number] Acct: [id number] Name: RAJENDRA LUCERO Rep #:[id number] : 1955 69 From: Claudia Valerio DO PCP: Dr. Phuc Martines DO Status:AD M IN Location: [place] [address] Reason for Visit Reason for Visit: Shortness [...] follow-up and would like to follow-up at [facility]--> she stated she would get a [...] follows with pulmonary medicine at [facility] - Does not seem to be [...] on admission Charges/Coding Visit Charges Inpatient E&M: 70752 Subs Hosp L2 02/21/25 1528 Cosigner Signature (if applicable): CC: ~ Signed [facility]04-26-2025 Progress note Author Claudia Valerio [facility] Note Date/Time February 20, 2025 2:4 [facility] Medical Records Department [address] [place] [address] Progress Note - Hospitalist 02/20/25 0807 MR#: [id number] Acct: [id number] Name: RAJENDRA LUCERO Rep #:[id number] : 1955 69 From: Claudia Valerio DO PCP: Dr. Phuc Martines, DO Status:AD M IN Location: [place] [address] Reason for Visit Reason for Visit: Shortness [...] 80.0 H, Lymph % (Auto) 9.8 L, [place] % (Auto) 8.5, Eos % (Auto) 1.0, [...] Clarity Clear, Urine pH 6.0, Ur Specific Barco 1.010, Urine Protein Negative, Urine Glucose (UA) [...] Cholesterol, Calc 101, VLDL Cholesterol 12, HDL Ylsoriozxpv94, Cholesterol/HDL Ratio 2.63, TSH 0.626 Micro: Microbiology [...] follows with pulmonary medicine at [facility] - Does not seem to be [...] on admission Charges/Coding Visit Charges Inpatient E&M: 48077 Subs Hosp L2 02/20/25 1444 <Electronically signed by Claudia Valerio DO> Cosigner Signature (if applicable): CC: ~ Signed [facility] Work Phone: 1(276) 144-763604-26-2025 Progress note [facility] Medical Records Department [address] [place] [address] Progress Note - Hospitalist 02/20/25806 MR#: [id number] Acct: [id number] Name: RAJENDRA LUCERO Rep #:[id number] : 1955 69 From: Claudia Valerio DO PCP: Dr. Phuc Martines, DO Status:AD M IN Location: [facility] [id number] Reason for Visit Reason for Visit: [...] 80.0 H, Lymph % (Auto) 9.8 L, [place] % (Auto) 8.5, Eos % (Auto) 1.0, [...] Clarity Clear, Urine pH 6.0, Ur Specific Barco 1.010, Urine Protein Negative, Urine Glucose (UA) [...] 223, MPV 11.2, Sodium 142, Potassium 3.8, Wkoiroex81 L, Carbon Dioxide 34.3 H, Anion Gap13, [...] Cholesterol, Calc 101, VLDL Cholesterol 12, HDL Euzqhrtdqoz41, Cholesterol/HDL Ratio 2.63, TSH 0.626 Micro: Microbiology [...] follows with pulmonary medicine at [facility] - Does not seem to be [...] on admission Charges/Coding Visit Charges Inpatient E&M: 24219 Subs Hosp L2 02/20/25 1444 Cosigner Signature (if applicable): CC: ~ Signed [facility]04-26-2025 Radiology Diagnostic study note [facility] Imaging Services [address] [place] [address] [id number] CTA Chest W/WO Contrast MR#: [id number] Acct: [id number] Name: RAJENDRA LUCERO Bora Rep #: [id number] : 1955 F 69 From: Bev Drummond MD PCP: Dr. Phuc Martines, DO Status: AD M IN Study:CTA Chest W/WO Contrast Date of Exam: 02/20/25 Exam# [id number] Ordering Dr: Kinza Valerio DO EXAM: CT [...] in 6 months is recommended. Reading Location: [facility] CC: Dr. Phuc Martines DO; Dr. Claudia Valerio DO ~ Supreme Court Justice: Signed [facility]04-25-2025 History and physical note Author Kym Norton [facility] Note Date/Time February 19, 2025 4:1 3pm [facility] Medical Records Department [address] [place] [address] H&P Exam - Hospitalist 02/19/25 1548 MR#: [id number] Acct: [id number] Name: RAJENDRA LUCERO Rep #:[id number] : 1955 69 From: Kym Norton MD PCP: Dr. Phuc Martines DO Status:AD M IN Location: [facility] [id number] HPI - General General Date of Admission: 02/19/25 Date of Service: 02/19/25 Chief Complaint: Increase shortness of breath and lower extremity swelling HPI Narrative RAJENDRA LUCERO, is a 69-year-old female with a history of COPD on 3 L nasal cannula and hypertension who presented to [facility] ED 02/19/2025 with increased shortness of [...] feeling on her tongue. Denies history of ROYX and reports she did a previous sleep study which was negative. Does endorse drinking several mixed drinks a day and estimates that it equals about 4 shots aday. She does not note any history of withdrawal symptoms. [facility] Medical History COPD (chronic obstructive [...] BID PRN dry 02/19/25 Unknown History aerosol ([place] Saline) nasal passages triamcinolone acetonide 0.5 % [...] 80.0 H, Lymph % (Auto) 9.8 L, [place] % (Auto) 8.5, Eos % (Auto) 1.0, [...] Clarity Clear, Urine pH 6.0, Ur Specific Barco 1.010, Urine Protein Negative, Urine Glucose (UA) [...] setting of COPD on 3 L home [id number] secondary to new onset heart failure -Patient [...] 78 Minutes Charges/Coding Visit Charges Inpatient E&M: 79408 Init Hosp L3 02/19/25 1613 <Electronically signed by Kym Norton MD> Cosigner Signature (if applicable): CC: Dr. Phuc Martines DO; Dr. Kym Norton MD~ Signed [facility] Work Phone: 1(693) 436-677104-25-2025 Evaluation note* Diagnosis Onset Date Resolution Status Admit Date Atrial flutter acute January 3:53pm Dyspnea on exertion acute February 19, 2025 3:53pm Shortness of breath acute February 19, 2025 3:53pm Acute on chronic hypoxic respiratory failure chronic February 19, 2025 3:53pm [facility] Work Phone: 1(742) 489-340804-25-2025 Evaluation note* Diagnosis Onset Date Resolution Status Admit Date Atrial flutter acute January 3:53pm Shortness of breath acute February 19, 2025 3:53pm Acute on chronic hypoxic respiratory failure resolved February 19, 2025 3:53pm Dyspnea on exertion resolved February 19, 2025 3:53pm Atrial flutter acute March 30, 2025 11:24am [facility] Work Phone: 1(881) 125-314504-25-2025 Evaluation note* Diagnosis Onset Date Resolution Status [...] ventricular response acute April 23, 2025 9:51pm [facility] Work Phone: 1(377) 616-926104-25-2025 Evaluation note* Diagnosis Onset Date Resolution Status [...] of breath acute May 07, 2025 1:02pm [facility] Work Phone: 1(114) 511-909004-25-2025 Evaluation note* Diagnosis Onset Date Resolution Status [...] 1:02pm Hypertension chronic May 07, 025 1:02pm [facility] Work Phone: 1([phone]) [phone] Evaluation note* Diagnosis Onset Date Resolution Status [...] failure with hypercapnia chronic May 132024 6:22pm [facility] Work Phone: 1(938) 495-546204-25-2025 Evaluation note* Diagnosis Onset Date Resolution Status [...] Atrial fibrillation acute Augus t 2024 2:33pm senior care current use of anticoagulant acute June 08 2:33pm [facility] Work Phone: 1(743) 438-548704-25-2025 Discharge summary Author Linwood Ivy [facility] Note Date/Time February 19, 2025 3:4 0pm [facility] Medical Records Department [address] [place] [address] Emergency Department Summary 02/19/25 MR#: [id number] Acct: [id number] Name: RAJENDRA LUCERO Rep #:[id number] : 1955 69 From: Linwood Ivy DO PCP: Dr. Phuc Martines DO Status:AD M IN Location: [facility] [id number]- [id number] Linwood Ivy DO [...] not coughing up significant mount of phlegm. [facility] Medical History COPD (chronic obstructive [...] BID PRN dry 02/19/25 Unknown History aerosol ([place] Saline) nasal passages triamcinolone acetonide 0.5 % [...] follow commands and that she was at [facility] year is 2024 Skin: Warm, dry, [...] 80.0 H Lymph % (Auto) 9.8 L [place] % (Auto) 8.5 Eos % (Auto) 1.0 [...] Clarity Clear Urine pH 6.0 Ur Specific Barco 1.010 Urine Protein Negative Urine Glucose (UA) [...] [Daily Multi-Vitamin] Tablet 1 tab PO DAILY [place] Saline 0.65 % aerosol,spray 1 spray intranasal BID PRN (Reason: dry nasal passages) triamterene-hydrochlorothiazid 37.5-25 mg capsule 1 cap PO DAILY Patient Comments: PT TAKES IN AFTERNOON guaifenesin [Mucus Relief ER] 1,200 MG tablet 1,200 mg PO BID PRN (Reason: cough) Primary Care Provider: Phuc Martines Referrals: Phuc Martines DO [Primary Care Provider] - Print Language: Luxembourgish Disposition Disposition: Acute Care Hospital [facility] What to do if you have Problems For any increased pain, shortness of breath, bleeding, nausea or vomiting, chestpain, or any unexpected problems, contact your Primary Care Provider. Call [facility] ([phone]) or report to the closest Emergency Room. Call 911 if necessary. 02/19/25 1504 <Electronically signed by Linwood Ivy DO> Cosigner Signature (if applicable): CC: Dr. Phuc Martines DO ~ Signed [facility] Work Phone: 1(160) 875-980804-25-2025 History and physical note [facility] Medical Records Department [address] [place] [address] H&P Exam - Hospitalist 02/19/25 1548 MR#: [id number] Acct: [id number] Name: RAJENDRA LUCERO Rep #:[id number] : 1955 69 From: Kym Norton MD PCP: Dr. Phuc Martines DO Status:AD M IN Location: [place] [address] HPI - General General Date of Admission: 02/19/25 Date of Service: 02/19/25 Chief Complaint: Increase shortness of breath and lower extremity swelling HPI Narrative RAJENDRA LUCERO, is a 69-year-old female with a history of COPD on 3 L nasal cannula and hypertension who presented to [facility] ED 02/19/2025 with increased shortness of [...] does not noteany history of withdrawal symptoms. [facility] Medical History COPD (chronic obstructive [...] BID PRN dry 02/19/25 Unknown History aerosol (Colchester Saline) nasal passages triamcinolone acetonide 0.5 % [...] 80.0 H, Lymph % (Auto) 9.8 L, [place] % (Auto) 8.5, Eos % (Auto) 1.0, [...] Clarity Clear, Urine pH 6.0, Ur Specific Barco 1.010, Urine Protein Negative, Urine Glucose (UA) [...] setting of COPD on 3 L home [id number] secondary to new onset heart failure -Patient [...] 78 Minutes Charges/Coding Visit Charges Inpatient E&M: 92623 Init Hosp L3 02/19/25 1613 Cosigner Signature (if applicable): CC: Dr. Phuc Martines DO; Dr. Kym Norton MD~ Signed [facility]04-25-2025 Discharge summary [facility] Medical Records Department [address] [place] [address] Emergency Department Summary 02/19/25 MR#: [id number] Acct: [id number] Name: RAJENDRA LUCERO Rep #:[id number] : 1955 69 From: Linwood Ivy DO PCP: Dr. Phuc Martines DO Status:AD M IN Location: [place] [address] Linwood Ivy DO on [...] not coughing up significant mount of phlegm. [facility] Medical History COPD (chronic obstructive [...] BID PRN dry 02/19/25 Unknown History aerosol ([place] Saline) nasal passages triamcinolone acetonide 0.5 % [...] follow commands and that she was at [facility] year is 2024 Skin: Warm, dry, [...] 80.0 H Lymph % (Auto) 9.8 L [place] % (Auto) 8.5 Eos % (Auto) 1.0 [...] Clarity Clear Urine pH 6.0 Ur Specific Barco 1.010 Urine Protein Negative Urine Glucose (UA) [...] [Daily Multi-Vitamin] Tablet 1 tab PO DAILY [place]chester Saline 0.65 % aerosol,spray 1 spray intranasal BID PRN (Reason: dry nasal passages) triamterene-hydrochlorothiazid 37.5-25 mg capsule 1 cap PO DAILY Patient Comments: PT TAKES IN AFTERNOON guaifenesin [Mucus Relief ER] 1,200 MG tablet 1,200 mg PO BID PRN (Reason: cough) Primary Care Provider: Phuc Martines Referrals: Phuc Martines DO [Primary Care Provider] - Print Language: Luxembourgish Disposition Disposition: Acute Care Hospital [facility] What to do if you have Problems For any increased pain, shortness of breath, bleeding, nausea or vomiting, chestpain, or any unexpected problems, contact your Primary Care Provider. Call [facility] ([phone]) or report tothe closest Emergency Room. Call 911 if necessary. 02/19/25 1504 Cosigner Signature (if applicable): CC: Dr. Phuc Martines DO ~ Signed [facility]04-25-2025 Radiology Diagnostic study note [facility] Imaging Services [address] [place] [address] Chest PA and Lateral MR#: [id number] Acct: [id number] Name: RAJENDRA LUCERO Rep #: [id number] : 1955 F 69 From: Vicki Mccabe MD PCP: Dr. Phuc Martines DO Status: RE G ER Study:Chest PA and Lateral Date of Exam: 02/19/25 Exam# [id number] Ordering Dr: Yonatan Ivy DO PROCEDURE: CHEST [...] Martines DO; Dr. Linwood Ivy DO ~ Supreme Court Justice: Signed [facility]04-01-2025 Telephone encounter Note* Telephone Encounter - Maricruz Camp APRN.CNP - 01/26/2025 4:47 PM EDT Left message for patient to check Mychart message and call back if she wants to discuss this further. Category 3 LDCT due to residual RML opacity, likely inflammatory/iinfectious. Maricruz Camp APRN.CNP [facility]04-01-2025 Miscellaneous Notes* Telephone Encounter - Maricruz Camp APRN.CNP - 01/26/2025 4:47 PM EDT Left message for patient to check Mychart message and call back if she wants to discuss this further. Category 3 LDCT due to residual RML opacity, likely inflammatory/iinfectious. Maricruz Camp APRN.CNP documented in this encounterC[facility]03-[facility] Instructions* Patient Instructions* Maricruz Camp APRN.CNP [...] curative intent treatment Lung Cancer Screening hotline: [phone] Specialist Providers: (Basia Guzman CNP; Josefina Ceron CNP; Pito Dewitt CNP; ELVIA Dixon; Lakia Ohara PA-C; Keely Castillo PA-C; Lisha Cruz CNP, Nadia Wilson FILTERS ASSEMBLER, Veronica Grover FILTERS ASSEMBLER, Maricruz Camp CNP & Chiquis Rico PA-C): [phone] documented in this encounterC[facility]03-31-2025 History of Present illness Narrative* Pito [...] PATIENT PRESENTS WITH AN IMPLANTABLE OR ATTACHED WEED CONTROL INSPECTOR: No RADIOLOGY DEPARTMENT: CT; Exam(s) Completed: Lung Screening PERIPHERAL IV DATA: Not applicable SIGNED BY: RT Flower(Tarun) January 25, 2025 1:52 PM documented in this encounterC[facility]03-31-2025 NoteHNO ID: [id number] Author: PITO GALAVIZ RT(R) Service: ? Author Type: Operations Professional Type: Progress Notes Filed: 01/25/2025 13:52 Note [...] PATIENT PRESENTS WITH AN IMPLANTABLE OR ATTACHED WEED CONTROL INSPECTOR: No RADIOLOGY DEPARTMENT: CT; Exam(s) Completed: Lung Screening PERIPHERAL IV DATA: Not applicable SIGNED BY: RT Flower(R) January 25, 2025 1:52 [facility]03-31-2025 NoteHNO ID: [id number] Author: MARICRUZ CAMP APRN.FILTERS ASSEMBLER Service: ? Author Type: Nurse Practitioner Type: [...] activities of daily living. Modified Medical Research [place] Dyspnea Scale (MMRC) On level ground I [...] disease) (HCC) 02/03/2010 Coronary artery disease No [place], CHF. No heart cath. Diverticulosis of colon [...] to 08/29/2022. Prior PFTS: SPIROMETRY BASELINE ONLY ([id number]) - ordered on 03/16/22 No textual results for order. SPIROMETRY BASELINE ONLY ([id number]) - ordered on 03/31/20 [facility] [address] [place] [address] Test Date: 2020-03-31 Pat Name: RAJENDRA LUCERO Department: Room: Gender: Female Operations Professional: YASMIN Jesus : 1955 Requested By: Ivan CHRISTINE Order Number: [id number] Reading MD: Joel Childs Interpretive Statements ATS/ERS acceptabil (more content not included)...[facility] 01-25-2025 History of Present illness Narrative* Maricruz Camp APRN.[facility] - 01/25/2025 10:22 AM EDT Chief Complaint: [...] activities of daily living. Modified Medical Research [place] Dyspnea Scale (MMRC) On level ground I [...] disease) (HCC) 02/03/2010 Coronary artery disease No [place], CHF. No heart cath. Diverticulosis of colon [...] to 08/29/2022. Prior PFTS: SPIROMETRY BASELINE ONLY ([id number]) - ordered on 03/16/22 No textual results for order. SPIROMETRY BASELINE ONLY ([id number]) - ordered on 03/31/20 [address] [place] [address] Test Date: 2020-03-31 Pat Name: RAJENDRA LUCERO Department: Room: Gender: Female Operations Professional: YASMIN Lee : 1955 Requested By: Ivan CHRISTINE Order Number: [id number] Reading MD: Joel Childs Interpretive Statements ATS/ERS [...] EDT by Joel Childs Site: WO ID: [id number] Name: RAJENDRA LUCERO Visit Date: 03/31/2020 Second ID: [id number] Referring Doctor: Ivan CHRISTINE Operations Professional: YASMIN Lee Age: 64 : 1955 Sex: Female Race: <Other> Height: 64.50 Inches Weight: 255.80 Lbs BSA: 2.18 Order IDs: [id number] Requested Test(s): Spirometry baseline only Post Test [...] radiology report. Six year risk is 1.4% [email or web address] 2. Nicotine Dependence, Former: Continue to abstain from smoking cigarettes. Maricruz Camp APRN.CNP January 25, 2025 10:22 AM documented in this encounterC[facility]03-26-2025 NoteHNO ID: [id number] Author: PHUC MARTINES, DO Service: ? Author Type: Physician Type: Progress Notes Filed: 01/20/2025 20:54 Note Text: CC: Rajnedra Lucero is a 69 year old female who presents to the office for follow up HPI: HTN, recently controlled, no further dizziness. No chest pain/pressure. Has chronic dyspnea. No new edema or SINHA's or syncope symptoms. IFG, dyslipidemia, knows needs to work on weight loss efforts, is currently diet controlled Hair 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 Feels she is coping okay. 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 No heart cath. Diverticulosis of colon [...] hours as needed for wheezing/shortness of breath. uoihpovituc-bibrcqqdk-soqsstqg (TRELEGY ELLIPTA) 200-62.5-25 mcg inhalation powder Inhale [...] - ICD9: 780.79, ICD10: (more content not included)...[facility]03-26-2025 History of Present illness Narrative* [...] is currently diet controlled Hair 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 Feels she is coping okay. 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 No heart cath. Diverticulosis of colon [...] hours as needed for wheezing/shortness of breath. 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 Essential hypertension - ICD9: 401.9, ICD10: I10 - Controlled - Continue current medications - Recommend home blood pressure monitoring, to bring results to next visit - Encouraged sodium restriction, DASH or Mediterranean diet - Recommend regular aerobic exercise 9. Oxygen dependent - ICD9: V46.2, ICD10: Z99.81 See above 10. Morbid obesity with BMI of 45.0-49.9, adult ([facility]) - ICD9: 278.01, V85.42, ICD10: [...] plan. See patient instructions. Phuc Martines DO [address] [place] [address] * Phuc Martines DO - 01/20/2025 8:48 [...] kg/(m^2) Phuc Martines DO documented in this encounterCleveland [facility]03-26-2025 NoteHNO ID: [id number] Author: PHUC MARTINES DO Service: ? Author [...] weight loss. BMI 45.32 kg/(m2) Phuc Martines, [facility]02-28-2025 Instructions* Patient Instructions* Rajendra Goodman APRN.CNP - 12/25/2024 11:59 AM EST Increase the dose of Trelegy. Remember to rinse after you use. If there is any concern with cost, we can try splitting Trelegy into 2 different inhalers. Monitor your oxygen levels with activity especially. Our last testing shows you require 6 liter of oxygen with activity. documented in this encounterCleveland Clinic [facility] Hospital02-28-2025 History of Present illness Narrative* Rajendra Goodman APRN.CNP - 12/25/2024 11:30 AM EST Images from the original note were not included. Pulmonary Medicine Patients name: Rajendra Palumbo PCP: Phuc Martines DO CC: follow-up COPD HPI: Rajendra Lucero is a 69 year old female former 48-lryv-dxox smoker, quitting in 2008 with PMH significant [...] disease) (HCC) 02/03/2010 Coronary artery disease No NJ, CHF. No heart cath. Diverticulosis of colon [...] ELLIPTA 100-62.5-25 mcg inhalation powder Generic drug: mudhdjqdgjq-gcpbxdfbo-ghkktomi USE 1 INHALATION DAILY INSTRUCTED triamcinolone acetonide [...] prior chest CT examinations is needed. Reference: [employer]. Lung CT Screening Reporting and Data System (Lung-RADS). Available at: http://www.acr.org/Quality-Safety/Resources/LungRADS Supreme Court Justice: PAT Transcribe Date/Time: Oct 19 2024 11:21A Dictated by : VIDAL PULLIAM MD This examination was interpreted and the report reviewed and electronically signed by: VIDAL PULLIAM MD on Oct 19 2024 11:28AM EST Results-Findings * * *Final Report* * * DATE OF EXAM: Oct 19 2024 10:09AM [facility] 0[facility] - CT LUNG SCREEN [facility] / PROCEDURE REASON: Former cigarette smoker * [...] without contrast. MQ: CTLCS_6 Patient characteristics: * Pzyl-mo-Luuxs: 1955; Age at exam: 69 years * Gender: Female * Lung Disease: Asymptomatic (no signs or symptoms of lung disease) * Number of Pack Years: 38 * Current smoker (=0) or Number of Years since Quit: 15 * Ordering provider and NPI: MARICRUZ CAMP [id number] * Interpreting radiologist and NPI: Nicole [id number] Exam acquisition parameters: * Exam Date: 10/19/2024 10:09 AM * Site: [facility] * * CT System Dial Marker: Siemens * CT System Model: Sensation * [...] severe COPD by GOLD classification ([facility]) - ICD9: 496, ICD10: J44.9 (primary diagnosis) - progressively worsening exertional dyspnea. - increase Trelegy. Instructed to rinse mouth after use. - encouraged use of Duoneb or Albuterol as needed. 2. Chronic respiratory failure with hypoxia ([facility]) - ICD9: 518.83, 799.02, ICD10: J96.11 - [...] which included preparing to see the patient, rlpl-yg-ermh patient care, completing clinical documentation, performing a medically appropriate examination, counseling and educating the patient/family/caregiver, and ordering medications, tests,or procedures. documented in this encounterCleveland Clinic [facility]on Hospital02-28-2025 NoteHNO ID: [id number] Author: RAJENDRA GOODMAN APRN.CNP Service: ? Author Type: Nurse Practitioner Type: Progress Notes Filed: 12/25/2024 12:29 Note Text: Pulmonary Medicine Patients name: Rajendra Palumbo PCP: Phuc Martines DO CC: follow-up COPD HPI: Rajendra Lucero is a 69 year old female former 91-lpnj-bmrz smoker, quitting in 2008 with PMH significant [...] disease) (HCC) 02/03/2010 Coronary artery disease No NJ, CHF. No heart cath. Diverticulosis of colon [...] ELLIPTA 100-62.5-25 mcg inhalation powder Generic drug: gagbbarcoje-witdqtyyw-gzsrrzrv USE 1 INHALATION DAILY INSTRUCTED triamcinolone acetonide [...] prior chest CT examinations is needed. Reference: [employer]. Lung CT Screening Reporting and Data System (Lung-RADS). Available at: http://www.acr.org/Quality-Safety/Resources/LungRADS Supreme Court Justice: PAT Transcribe Date/Time: Oct 19 2024 11:21A Dictated by : VIDAL PULLIAM MD This examination was interpreted and the report reviewed and electronically signed by: VIDAL PULLIAM MD on Oct 19 2024 11:28AM EST Results-Findings * * *Final Report* * * DATE OF EXAM: Oct 19 2024 10:09AM [facility] 0[facility] - CT LUNG SCREEN WO [...] upper abdomen without contrast. (more content not included)...[facility]02-06-2025 History of Present illness Narrative* [...] PATIENT PRESENTS WITH AN IMPLANTABLE OR ATTACHED WEED CONTROL INSPECTOR: No RADIOLOGY DEPARTMENT: Mammography PERIPHERAL IV DATA: Not applicable SIGNED BY: Padma Bess December 03, 2024 11:01 AM documented in this encounterCleveland Clinic [facility]02-06-2025 NoteHNO ID: [id number] Author: JT CHENEY Mammo Tech Service: ? Author Type: Operations Professional Type: Progress Notes Filed: 12/03/2024 11:01 Note [...] PATIENT PRESENTS WITH AN IMPLANTABLE OR ATTACHED WEED CONTROL INSPECTOR: No RADIOLOGY DEPARTMENT: Mammography PERIPHERAL IV DATA: Not applicable SIGNED BY: Padma Bess December 03, 2024 11:01 [facility]01-31-2025 Telephone encounter Note* Telephone Encounter - Essence Ortiz RN - 11/27/2024 3:53 PM EST Patient calls and states that she needs refills of Trelegy sent to [facility]. Patient also states that she has [...] 01/20/2025 Requested Prescriptions Pending Prescriptions Disp Refills efkfbkzpgvd-jzizvzaey-ccenkdqk (TRELEGY ELLIPTA) 100-62.5-25 mcg inhalation powder 3 Each 3 Sig: USE 1 INHALATION DAILY INSTRUCTED Essence Ortiz RN November 27, 2024 3:54 PM [facility]01-[facility] Miscellaneous Notes* Telephone Encounter - Essence Ortiz RN - 11/27/2024 3:53 PM EST Patient calls and states that she needs refills of Trelegy sent to [facility]. Patient also states that she has [...] 01/20/2025 Requested Prescriptions Pending Prescriptions Disp Refills qhbomxhlpxw-bmncltfli-yrfdwzai (TRELEGY ELLIPTA) 100-62.5-25 mcg inhalation powder 3 Each 3 Sig: USE 1 INHALATION DAILY INSTRUCTED Essence Ortiz RN November 27, 2024 3:54 PM documented in this encounterCleveland Clinic [facility]on Hospital01-15-2025 NoteHNO ID: [id number] Author: JACOBO DONALD MA Service: ? Author Type: Framing Inspector Type: Progress Notes Filed: 11/11/2024 15:47 Note [...] Follow-up Appointment Controlling Blood Pressure 12/25/2024 in [facility] with RAJENDRA GOODMAN 6 MTH F/U COPD 01/25/[address] [facility] with [facility] - LDCT 01/25/2025 in [facility] with MARICRUZ CAMP - LDCT 02/17/2025 in [facility] with PHUC MARTINES - FOLLOW UP HCC related Navigation Signature: Jacobo Donald MA November 11, 2024 3:37 [facility]01-15-2025 History of Present illness Narrative* Jacobo Donald [...] Follow-up Appointment Controlling Blood Pressure 12/25/2024 in [facility] with CLICKRAJENDRA - 6 MTH F/U COPD 01/25/[address] [facility] [address] [facility] with [facility] - LDCT 01/25/2025 in [facility] with MARICRUZ CAMP - LDCT 02/17/2025 in [facility] with PHUC MARTINES - FOLLOW UP HCC related Navigation Signature: Jacobo Donald MA November 11, 2024 3:37 PM documented in this encounterCleveland Clinic [facility]01-15-2025 NotePatient Outreach (NETNAV) RAJENDRA LUCERO ([id number]) 1955 F Date Time Provider Department 11/11/24 [...] Follow-up Appointment Controlling Blood Pressure 12/25/2024 in [facility] with RAJENDRA GOODMAN 6 MTH F/U COPD 01/25/[address] [facility] [address] [facility]I-[facility]) - LDCT 01/25/2025 in [facility] with MARICRUZ CAMP - LDCT 02/17/2025 in [facility] with PHUC MARTINES - FOLLOW UP HCC related Navigation Signature: Jacobo Ceron JESSICA Donald November 11, 2024 3:37 PM Allergies As of Date: 11/11/2024 Noted Allergy Reaction ALEVE (NAPROXEN) 05/31/2020 4 - Hives Comments: Hives, edema of hands within 1 hour of use Date Reviewed: 10/19/2024 Reviewed by: Maricruz Camp APRN.FILTERS ASSEMBLER - Fully Assessed Reason for Visit: Population Health Navigation Outreach [3910] Cmt: ACO WORK[employer]ENCH MEEHAN PCSA Prescriptions as of 11/11/2024 - triamterene-hydroCHLOROthiazide (DYAZIDE) 37.5-25 mg per capsule Take 1 capsule by mouth once daily. - amLODIPine (NORVASC) 10 mg tablet Take 1 tablet by mouth once daily. - rlbsyxddsfi-dazdyguzx-hkwginjw (TRELEGY ELLIPTA) 100-62.5-25 mcg inhalation powder USE [...] 03/13/2024 Encounter Status:Closed by JACOBO DONALD on 11/11/24[facility]01-09-2025 NoteHNO ID: [id number] Author: IRMA KEVIN HUC Service: ? Author Type: Forklift Material Handler Type: Progress Notes Filed: 11/05/2024 14:22 Note Text: [facility] LUNG CANCER SCREENING FOLLOWUP ADVANCED: Diagnosis: Lung Nodule Recommendation: CT Scan Follow Up Due Date: 01/25/2025 All Follow Up Scheduled: Yes Pulmonary Follow Up Type: Lung Nodule Surveillance Patient should be added to the Lung Cancer Screening Followup Report: No Lung Cancer Screening Program Location: [facility] 11-05-2024 History of Present illness Narrative* Irma Kevin HUC - 11/05/2024 2:22 PM EST [facility] LUNG CANCER SCREENING FOLLOWUP ADVANCED: Diagnosis: Lung Nodule Recommendation: CT Scan Follow Up Due Date: 01/25/2025 All Follow Up Scheduled: Yes Pulmonary Follow Up Type: Lung Nodule Surveillance Patient should be added to the Lung Cancer Screening Followup Report: No Lung Cancer Screening Program Location: [facility] documented in this [facility]01-09-2025 NotePatient Outreach (PULMMN) RAJENDRA LUCERO ([id number]) 1955 F Date Time Provider Department 11/05/24 [...] No Lung Cancer Screening Program Location: [facility] Allergies As of Date: 11/05/2024 Noted Allergy Reaction ALEVE (NAPROXEN) 05/31/2020 4 - Hives Comments: Hives, edema of hands within 1 hour of use Date Reviewed: 10/19/2024 Reviewed by: Maricruz Camp APRN.FILTERS ASSEMBLER - Fully Assessed Prescriptions as of 11/05/2024 - triamterene-hydroCHLOROthiazide (DYAZIDE) 37.5-25 mg per capsule Take 1 capsule by mouth once daily. - amLODIPine (NORVASC) 10 mg tablet Take 1 tablet by mouth once daily. - yodwwkqzpsg-dntzlklnc-uwxqdrcw (TRELEGY ELLIPTA) 100-62.5-25 mcg inhalation powder USE [...] 03/13/2024 Encounter Status:Closed by IRMA KEVIN on 11/05/24[facility] 10-21-2024 NotePatient Outreach (INTMMN) RAJENDRA LUCERO ([id number]) 1955 F Date Time Provider Department 10/21/24 PHUC MARTINES During your visit today, we recorded the following information about you: Allergies As of Date: 10/21/2024 Noted Allergy Reaction ALEVE (NAPROXEN) 05/31/2020 4 - Hives Comments: Hives, edema of hands within 1 hour of use Date Reviewed: 10/19/2024 Reviewed by: Maricruz Camp APRN.FILTERS ASSEMBLER - Fully Assessed Visit Diagnosis:Encounter for screening mammogram for breast cancer [Z12.31] Order(s):[facility] SCREENING W ASHLEY [[id number]] Order #: [id number] FUTURE Prescriptions as of 10/26/2024 - triamterene-hydroCHLOROthiazide (DYAZIDE) 37.5-25 mg per capsule Take 1 capsule by mouth once daily. - amLODIPine (NORVASC) 10 mg tablet Take 1 tablet by mouth once daily. - ndcrjbigwnu-vievbwhdy-swiakdxz (TRELEGY ELLIPTA) 100-62.5-25 mcg inhalation powder USE [...] 03/13/2024 Encounter Status:Closed by RAJEEV, PRODUSER on 10/26/24[facility] 10-20-2024 NoteHNO ID: [id number] Author: MARICRUZ CAMP APRN.CNP Service: ? Author [...] Report: Yes Lung Cancer Screening Program Location: [facility] 10-20-2024 History of Present illness Narrative* Maricruz Camp APRN.CNP - 10/20/2024 9:25 AM EST [facility] LUNG CANCER SCREENING FOLLOWUP ADVANCED: Diagnosis: Lung Nodule Recommendation: CT Scan Follow Up Due Date: 01/18/2025 All Follow Up Scheduled: No Pulmonary Follow Up Type: Lung Nodule Surveillance Patient should be added to the Lung Cancer Screening Followup Report: Yes Lung Cancer Screening Program Location: [facility] documented in this encounterCleveland Clinic [facility]12-23-2024 Instructions* Patient Instructions* Maricruz Camp APRN.CNP - 10/19/2024 2:51 PM EST There are new inflammatory opacities. Recommend follow up CT lung in 3 months. Maricruz Camp APRN.CNP documented in this encounterCleveland Clinic [facility]on Hospital12-23-2024 NoteHNO ID: [id number] Author: MARICRUZ CAMP APRN.CNP Service: ? Author [...] which included preparing to see the patient, aeak-md-vuyq patient care, completing clinical documentation, performing a medically appropriate examination, counseling and educating the patient/family/caregiver, ordering medications, tests, or procedures, communicating with other HCPs (not separately reported), independently interpreting results (not separately reported), communicating results to the patient/family/caregiver, and care coordination (not separately reported). Maricruz Camp, JAKI.[facility] October 19, 2024 10:28 AM History of [...] albuterol if feeling sick. Modified [employer] [place] Dyspnea Scale (MMRC) I am too breathless [...] disease) (HCC) 02/03/2010 Coronary artery disease No NJ, CHF. No heart cath. Diverticulosis of colon (without mention of hemorrhag (more content not included)...[facility]12-23-2024 History of Present illness Narrative* Maricruz Camp APRPradeepFILTERS ASSEMBLER - 10/19/2024 10:27 AM EST Images from [...] which included preparing to see the patient, wtss-qz-trtq patient care, completing clinical documentation, performing a medically appropriate examination, counseling and educating the patient/family/caregiver, ordering medications, tests, or pr ocedures, communicating with other HCPs (not separately reported), independently interpreting results (not separately reported), communicating results to the patient/family/caregiver, and care coordination (not separately reported). Maricruz Camp APRN.[facility] October 19, 2024 10:28 AM History of [...] albuterol if feeling sick. Modified [employer] Research [place] Dyspnea Scale (MMRC) I am too breathless [...] disease) (HCC) 02/03/2010 Coronary artery disease No NJ, CHF. No heart cath. Diverticulosis of colon [...] DATE OF EXAM: Oct 08 2023 1:24PM [facility] - CT LUNG SCREEN [facility] / PROCEDURE REASON: Former cigarette smoker * [...] without contrast. MQ: CTLCS_6 Patient characteristics: * Eazl-qk-Lqrkj: 1955; Age at exam: 68 years * Gender: Female * Lung Disease: Asymptomatic (no signs or symptoms of lung disease) * Number of Pack Years: 38 * Current smoker (=0) or Number of Years since Quit: 14 * Ordering provider and NPI: MARICRUZ CAMP [id number] * Interpreting radiologist and NPI: Nicole [id number] Exam acquisition parameters: * Exam Date: 10/08/2023 1:24 PM * Site: [facility] * * CT System Dial Marker: Siemens * CT System Model: Sensation * [...] ... Pulmonary Function Testing: SPIROMETRY BASELINE ONLY ([id number]) - ordered on 03/16/22 No textual results for order. documented in this encounterCleveland Clinic [facility]on Hospital12-23-2024 History of Present illness Narrative* Pito [...] PATIENT PRESENTS WITH AN IMPLANTABLE OR ATTACHED WEED CONTROL INSPECTOR: No RADIOLOGY DEPARTMENT: CT; Exam(s) Completed: Lung Screening PERIPHERAL IV DATA: Not applicable SIGNED BY: RT Flower(Tarun) October 19, 2024 12:24 PM documented in this encounterCleveland Clinic Avon Hospital12-23-2024 NoteHNO ID: [id number] Author: PITO GALAVIZ RT(R) Service: ? Author Type: Operations Professional Type: Progress Notes Filed: 10/19/2024 12:24 Note [...] PATIENT PRESENTS WITH AN IMPLANTABLE OR ATTACHED WEED CONTROL INSPECTOR: No RADIOLOGY DEPARTMENT: CT; Exam(s) Completed: Lung Screening PERIPHERAL IV DATA: Not applicable SIGNED BY: RT Flower(Tarun) October 19, 2024 12:24 [facility]09-20-2024 Telephone encounter Note* Telephone Encounter - Vero [...] Lockett LPN July 17, 2024 2:19 PM [facility]09-20-20[facility] Miscellaneous Notes* Telephone Encounter - Vero [...] 17, 2024 2:19 PM documented in this encounterCleveland Clinic [facility] Hospital08-30-2024 History of Present illness Narrative* Diana Gonzalez MD - 06/26/2024 11:45 AM EDT Images from the original note were not included. . [facility] [place] Note Patient name: Rajendra Lucreo PCP: Phuc Martines DO CC: Follow-up COPD HPI: Rajendra Lucero 68 year old female former 28-nvlp-dnks smoker, quitting in 2008 with PMH significant [...] DATE OF EXAM: Oct 08 2023 1:24PM [facility] - CT LUNG SCREEN WO [...] No date: Coronary artery disease Comment: No NJ, CHF. No heart cath. No date: Diverticulosis [...] Take 1 tablet by mouth once daily. wkjrqyrauxd-dfmfmxdpo-snobxvoi (TRELEGY ELLIPTA) 100-62.5-25 mcg inhalation powder USE [...] mode ambulation 3. Former cigarette smoker -Former 41-jaem-tudg smoker with sequelae of emphysema -Continued abstinence -Participating in lung cancer screening program with CT due this September 4. Morbid obesity -BMI 43 -Weight loss advised 5. Lung nodule -Right upper lobe nodule stable since 2017 -No further surveillance imaging required Diana Gonzalez MD [facility] [place] documented in this encounterCleveland Clinic [facility] Hospital06-30-2024 History of Present illness Narrative* Damon Eugene APRN.FILTERS ASSEMBLER - 04/26/2024 11:12 AM EDT Images from the original note were not included. Subjective Patient came in with complaints of possible wound infection on the right calf. Patient says she fell 2 weeks ago. Patient says she has been treating at home with antibiotic ointment. Patient denies any fever chills nausea vomiting. The history is provided by the patient. No school speech language pathologist was used. Review of Systems Constitutional: Negative. [...] disease) (HCC) 02/03/2010 Coronary artery disease No NJ, CHF. No heart cath. Diverticulosis of colon [...] Take 1 tablet by mouth once daily. cinwxwjsona-aaehmgdak-eiaqwwhr (TRELEGY ELLIPTA) 100-62.5-25 mcg inhalation powder USE [...] was okay with this careplan. Damon Eugene APRN.FILTERS ASSEMBLER documented in this encounterCleveland Clinic [facility] Hospital06-05-2024 Telephone encounter Note * Telephone Encounter - Erica Mckenzie LPN - 04/01/2024 9:51 AM EDT Pt. informed. [facility]06-05-[facility] Miscellaneous Notes* Telephone Encounter - Erica [...] asking for recommendation. If script sent, [facility]. Aileen Mcdonnell RN documented in this encounterCleveland Clinic [facility] Hospital06-05-2024 Telephone encounter Note * Telephone Encounter - Phuc Martines DO - 04/01/2024 8:58 AM EDT Okay to wait on chest xray if symptoms continue to improve. If start to worsen again, then need forCXR rx for Diflucan sent in for her for vagina and thrush symptoms Phuc Martines DO [facility]06-03-2024 Telephone encounter Note* Telephone Encounter - [...] script sent, [facility]. Aileen Mcdonnell, RN [facility]05-17-2024 History of Present illness Narrative* Phuc [...] disease) (HCC) 02/03/2010 Coronary artery disease No NJ, CHF. No heart cath. Diverticulosis of colon [...] Take 1 tablet by mouth once daily. pnendslqxjd-jlisroshj-djdxydsx (TRELEGY ELLIPTA) 100-62.5-25 mcg inhalation powder USE [...] chronic obstructive pulmonary disease (COPD) ([facility]) ([facility]) - ICD9: 491.22, ICD10: J44.0, J20.9 (primary diagnosis) Start on rx as below Continue inhalers and IS use F/u with CXR if not improving as well as with manufacturing maintenance technician - DOXYCYCLINE HYCLATE 100 MG TABLET - AMOXICILLIN 875 MG-POTASSIUM CLAVULANATE 125 MG TABLET - PREDNISONE 10 MG TABLET - XR CHEST 2V FRONTAL/LAT 2. Chronic obstructive pulmonary disease, unspecified COPD type ([facility]) - ICD9: 496, ICD10: J44.9 Start on rx as below Continue inhalers and IS use F/u with CXR if not improving as well as with manufacturing maintenance technician - DOXYCYCLINE HYCLATE 100 MG TABLET - AMOXICILLIN 875 MG-POTASSIUM CLAVULANATE 125 MG TABLET - PREDNISONE 10 MG TABLET - XR CHEST 2V FRONTAL/LAT 3. Acute otitis media, left - ICD9: 382.9, ICD10: H66.92 Start on rx as below Continue inhalers and IS use F/u with CXR if not improving as well as with manufacturing maintenance technician - AMOXICILLIN 875 MG-POTASSIUM CLAVULANATE 125 MG [...] severe COPD by GOLD classification ([facility]) - ICD9: 496, ICD10: J44.9 [...] plan. See patient instructions. Phuc Martines DO [address] [place] [address] documented in this encounterCleveland Clinic [facility] Hospital04-17-2024 Miscellaneous Notes* Telephone Encounter - Yuli [...] you. Yuli Denton MA. documented in this encounterCleveland Clinic [facility] Hospital04-03-2024 Instructions* Patient Instructions* Srikanth Estrada APRN.CNP [...] 2 % TOPICAL OINTMENT documented in this encounterCleveland Clinic Avon Hospital04-03-2024 History of Present illness Narrative* Srikanth [...] disease) (HCC) 02/03/2010 Coronary artery disease No NJ, CHF. No heart cath. Diverticulosis of colon [...] [employer] Aleve [Naproxen] MEDICATIONS llqkumpudud-qyazjmtwu-pcaaiery (TRELEGY ELLIPTA) 100-62.5-25 mcg inhalation powder USE [...] MUPIROCIN 2 % TOPICAL OINTMENT Srikanth Estrada APRN.FILTERS ASSEMBLER documented in this encounterCleveland [facility]29-[facility] History of Present illness Narrative* Diana Gonzalez MD - 12/26/2023 11:45 AM EST Images from the original note were not included. . [facility] [place] Note Patient name: Rajendra Lucero PCP: Phuc [...] k/uL 1.10 Monocytes % % 8.2 Abs [place] <0.87 k/uL 0.61 Eosinophils % % 2.3 Abs Eosin <0.46 k/uL 0.17 Basophils % % 0.8 Abs Baso <0.11 k/uL 0.06 Immature Granulocytes % % 0.5 Abs Immature Gran <0.10 k/uL 0.04 NRBC /100 WBC 0.0 Absolute nRBC <0.01 k/uL <0.01 Diff Type Auto Imaging / Diagnostic Studies: DATE OF EXAM: Oct 08 2023 1:24PM [facility] 0562 - CT LUNG SCREEN WO [...] disease) (HCC) 02/03/2010 Coronary artery disease No [place], CHF. No heart cath. Diverticulosis of colon (without mention of hemorrhage) Essential hypertension, benign Fibrocystic breast Former smoker Internal hemorrhoids without mention of complication Leiomyoma of uterus, unspecified Obstructive sleep apnea Mild. Not prescribed CPAP, only 2L nasal O2. ALLERGIES Allergen Reactions Aleve [Naproxen] Hives Hives, edema of hands within 1 hour of use adnzbiqussm-vgorzrhfk-ixsktbzp (TRELEGY ELLIPTA) 100-62.5-25 mcg inhalation powder USE [...] CT in September Diana Gonzalez MD [facility] [place] documented in this encounterCleveland [facility]02-27-2024 Miscellaneous Notes* Telephone Encounter - Basia [...] 2023 9:56 AM documented in this encounterCleveland [id number] History of Present illness Narrative* Pito Galaviz [...] 08, 2023 2:12 PM documented in this encounterCleveland Clinic [facility]11-21-2023 History of Present illness Narrative* Baltazar [...] 17, 2023 9:26 AM documented in this [facility]10-20-2023 Miscellaneous Notes* Telephone Encounter - [...] diet. Phuc Martines DO documented in this encounterCleveland Clinic [facility]10-18-2023 History of Present illness Narrative* Phuc [...] was in Aug 2022 and is seeing Dairy Equipment Installer and using her oxygen, appt with Dr. [...] disease) (HCC) 02/03/2010 Coronary artery disease No [place], CHF. No heart cath. Diverticulosis of colon [...] daily. Inhale via nebulizer over 5-15 minutes. pxjacgtobhv-njgsppmoh-avputkbr (TRELEGY ELLIPTA) 100-62.5-25 mcg inhalation powder USE [...] plan. See patient instructions. Phuc Martines DO [address] [place] [address] documented in this encounterCleveland Clinic [facility]10-02-2023 Miscellaneous Notes* Telephone Encounter - Amanda Pearson LPN - 07/29/2023 11:18 AM EDT ABRAHAM-- NOV--08/14/23 LAST REFILL--08/01/22 90 AND 3 REFILLS LAST LABS--07/30/22 documented in this encounterCleveland Clinic [facility] Hospital08-17-2023 Procedure note* Yasmin Ayala RPFT - [...] None NAME: YOAV López PATIENT NAME: Rajendra Lucreo DATE: June 13, 2023 TIME: 1:02 PM Comment: documented in this encounterCleveland Clinic [facility]08-17-2023 History of Present illness Narrative* Hodan Christine PA-C - 06/13/2023 1:00 PM EDT Images from the original note were not included. Patient: Rajendra Lucero PCP: Phuc Martines DO CC: follow up HPI: Rajendra Lucero 67 year old morbidly obese female former 61-[id number]-hgzy smoker, quitting 1970with PMH significant for COPD, [...] disease) (HCC) 02/03/2010 Coronary artery disease No [place], CHF. No heart cath. Diverticulosis of colon [...] daily. Inhale via nebulizer over 5-15 minutes. qqukhabcexu-udlfadkqt-vbfawlsn (TRELEGY ELLIPTA) 100-62.5-25 mcg inhalation powder USE [...] cm in diameter. This has fluid attenuation. Automobile Mechanic Apprentice (topogram) images: No additional findings. ASSESSMENT/PLAN: 1. [...] necessary. Hodan Christine PA-C documented in this encounterCleveland Clinic [facility]08-17-2023 History of Present illness Narrative* Yasmin Ayala RPFT - 06/13/2023 12:58 PM EDT PULM FUNCTION SMARTBLOCK: Provider: Hodan Christine PA-C Assisting Tech: Yasmin Ayala RPFT Oximetry - Ambulation: 1 documented in this [facility]08-17-2023 Nurse Note* Lake Melvin LPN - 06/13/2023 12:53 PM EDT Intake information documented in the prior visit with YOAV López today. documented in this encounterCleveland Clinic [facility]08-03-2023 Miscellaneous Notes* Telephone Encounter - Lory [...] with Dr. Gonzalez or Sara sent to [facility] for O2 recert. Lake Melvin LPN * [...] review and advise. Thank you. [place] # [phone] Patrizia Jolly LPN documented in this encounterCleveland Clinic [facility]02-07-2023 Miscellaneous Notes* Telephone Encounter - Claudia [...] daily. Inhale via nebulizer over 5-15 minutes. wtooklcqsts-nczvhcmlc-suiuhert (TRELEGY ELLIPTA) 100-62.5-25 mcg inhalation powder 3 Each 3 Sig: USE 1 INHALATION DAILY INSTRUCTED RX INSTRUCTIONS: Patient aware RX will be sent to pharmacy. No need to notify patient. Gwendolyn Melendez Pss documented in this encounterCleveland Clinic [facility]12-28-2022 Miscellaneous Notes* Telephone Encounter - Yuli [...] fax Yuli Britton Ma documented in this encounterCleveland Clinic [facility]12-14-2022 Procedure note* YOAV López - 10/10/2022 [...] TIME: 11:15 AM Comment: documented in this encounterCleveland Clinic [facility]12-14-2022 History of Present illness Narrative* YOAV López - 10/10/2022 10:58 AM EST PULM FUNCTION SMARTBLOCK: Provider: Phuc Martines DO Assisting Tech: YOAV López Oximetry - Ambulation: 1 documented in this encounterCleveland Clinic [facility]12-02-2022 History of Present illness Narrative* Vonnie [...] 28, 2022 1:09 PM documented in this encounterCleveland Clinic [facility]12-02-2022 Instructions* Patient Instructions* Pratibha King APRN.CNP [...] or things are worsening. documented in this encounterCleveland Clinic [facility]12-02-2022 History of Present illness Narrative* Pratibha [...] Diagnosis Date COPD (chronic obstructive pulmonary disease) ([facility]) 02/03/2010 Coronary artery disease No NJ, CHF. No heart cath. Diverticulosis of colon [...] hours as needed for wheezing/shortness of breath. iijwjwdvaio-rgocbtsfn-jjciwmjt (TRELEGY ELLIPTA) 100-62.5-25 mcg inhalation powder USE [...] HR Pratibha King APRN.ELVIA documented in this encounterCleveland Clinic [facility]11-28-2022 Miscellaneous Notes* Telephone Encounter - Phuc Martines DO - 09/24/2022 7:24 AM EST Paperwork states she needs to have ambulatory oxygen testing within 30 days. Please help her set upthese tests at [place] Phuc Martines DO * Telephone Encounter - Ercia Mckenzie LPN - 09/14/2022 3:45 PM EST Information on your desk.. * Telephone Encounter - Phuc Martines DO - 09/12/2022 10:21 PM EST I don't have any of this information on my desk Phuc L Martines, DO * Telephone Encounter - Christy Galicia LPN - 09/12/2022 3:54 PM EST Malika from [facility] called regarding O2 orders. Malika is faxing another form with instructions that explains what is needed for pt to get O2 covered. The exertion testing with ambulation from February is too old, testing needs to be done within 30 days. Please watch for faxed form. Christy Galicia LPN documented in this encounterCleveland Clinic [facility]11-16-2022 Miscellaneous Notes* Letter - Mammography Coordinator - 09/12/2022 2:01 PM EST September 12, 2022 PID: [id number] Rajendra Lucero [address] [place] [address] Dear Ms. Lucero, We are pleased to [...] report will be [facility] as part of your permanent medical record and are available for your continuing care. Thank you for allowing us to help in meeting your health care needs. Sincerely, Dr. Jameson Interpreting Radiologist [facility] (Normal over 40) documented in this encounterCleveland Clinic [facility]11-10-2022 Miscellaneous Notes* Telephone Encounter - Basia Victor RN - 09/06/2022 7:53 PM EST Pt called and is notified of providers results and instructions. Pt voices understanding. 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 We will repeat this test in 6 months to reassess. Please assist her to schedule this testing. Pratibha King APRN.CNP documented in this encounterCleveland Clinic [facility]11-07-2022 History of Present illness Narrative* Bella [...] 03, 2022 1:41 PM documented in this encounterCleveland [facility]11-04-2022 Miscellaneous Notes* Telephone Encounter - Kizzy [...] appointment. Pratibha King APRN.CNP documented in this encounterCleveland Clinic [facility]11-02-2022 History of Present illness Narrative* Pito [...] 29, 2022 3:39 PM documented in this encounterCleveland [facility]10-07-2022 Miscellaneous Notes* Telephone Encounter - Betina Gallardo Ma - 08/03/2022 9:38 AM EDT Office faxed for medicare requirement yearly most recent OV note from 08/01/22 to [facility]. F#: [phone]. Betina Gallardo Ma documented in this encounterCleveland Clinic [facility]10-05-2022 History of Present illness Narrative* Phuc [...] was >15 months ago and is seeing Dairy Equipment Installer and using her oxygen, will be needing [...] 5.5 4.3 - 5.6 % Final Comment: [place] [employer] guidelines indicate that patients with HgbA1c in the range 5.7-6.4% are at increased risk for development of diabetes, and intervention by lifestyle modification may be beneficial. HgbA1c greater or equal to 6.5% is considered diagnostic of diabetes. 01/26/2022 6.1 (H) 4.3 - 5.6 % Final Comment: [place] [employer] guidelines indicate that patients with HgbA1c in the range 5.7-6.4% are at increased risk for development of diabetes, and intervention by lifestyle modification may be beneficial. HgbA1c greater or equal to 6.5% is considered diagnostic of diabetes. 04/28/2021 5.6 4.3 - 5.6 % Final Comment: [place] [employer] guidelines indicate that patients with HgbA1c in the range 5.7-6.4% are at increased risk for development of diabetes, and intervention by lifestyle modification may be beneficial. HgbA1c greater or equal to 6.5% is considered diagnostic of diabetes. 05/30/2020 5.6 4.3 - 5.6 % Final Comment: [place] [employer] guidelines indicate that patients with HgbA1c in the range 5.7-6.4% are at increased risk for development of diabetes, and intervention by lifestyle modification may be beneficial. HgbA1c greater or equal to 6.5% is considered diagnostic of diabetes. 05/15/2019 5.7 (H) 4.3 - 5.6 % Final Comment: [place] [employer] guidelines indicate that patients with [...] disease) (HCC) 02/03/2010 Coronary artery disease No [place], CHF. No heart cath. Diverticulosis of colon [...] hours as needed for wheezing/shortness of breath. ypitukygafc-mwcfmhxff-pckebhjt (TRELEGY ELLIPTA) 100-62.5-25 mcg inhalation powder USE [...] oximetry testing as ordered, follow up with manufacturing maintenance technician as well. Needs to continue oxygen at [...] See patient instructions. Phuc Martines DO [address] [place] [address] documented in this encounterCleveland Clinic [facility]10-05-2022 Instructions* Patient Instructions* Phuc Martines DO - 08/01/2022 11:00 AM EDT Vitamin B12 1,000 mcg a day in the morning supplement documented in this encounterCleveland Clinic [facility] Hospital09-08-2022 Miscellaneous Notes* Telephone Encounter - Lake Melvin LPN - 07/05/2022 8:45 AM EDT Order faxed. Lake Melvin LPN * Telephone Encounter - Lake Melvin LPN - 07/04/2022 2:21 PM EDT [facility] is requesting order for POC that goes to 6L as discussed at [facility] on 06/22. Patient has transitioned to Medicare as of 06/28. Lake Melvin LPN documented in this encounterCleveland Clinic [facility]06-02-2022 Miscellaneous Notes* Telephone Encounter - Lake Melvin LPN - 03/29/2022 3:00 PM EDT [facility] called, they did receive order and it is in the que to schedule. Lkae Melvin LPN documented in this encounterCleveland Clinic [facility]05-20-2022 Procedure note* Yasmin Ayala RRT - [...] TIME: 9:40 AM Comment: documented in this encounterCleveland Clinic [facility]05-20-2022 History of Present illness Narrative* Yasmin Ayala RRT - 03/16/2022 9:33 AM EDT PULM FUNCTION SMARTBLOCK: Provider: Hodan Christine PA-C Assisting Tech: Yasmin Ayala RRT Spirometry: 1 Oximetry - Ambulation: 1 System: [id number] documented in this encounterCleveland Clinic [facility]05-20-2022 History of Present illness Narrative* Hodan Christine PA-C - 03/16/2022 9:24 AM EDT [facility] [place], 03/16/2022: Name: Rajendra Lucero : 1955 The [...] edema, orthopnea. GI: No heartburn, dysphagia, diarrhea. Uro/REALTIME REPORTER: No dysuria, hesitancy, nocturia. Musculoskeletal: No pain. [...] answers. Hodan Christine PA-C documented in this encounterCleveland Clinic [facility]05-20-2022 Nurse Note* Lake Melvin LPN - 03/16/2022 9:06 AM EDT Intake information documented in the prior visit with Yasmin Ayala RRT today. documented in this encounterCleveland Clinic [facility]05-11-2022 Miscellaneous Notes* Telephone Encounter - Karla Jacob LPN - 03/07/2022 11:36 AM EDT Patient phones requesting refills as follows: Pending Prescriptions Disp Refills AMLODIPINE 5 MG TABLET 90 tablet 1 Sig: Take 1 tablet by mouth once daily. LALY: No ABRAHAM-10/31/21 Labs-01/26/22 NOV-05/01/22 med filled 11/07/21 Please review and advise. Karla Jacob LPN documented in this encounterCleveland Clinic [facility]04-15-2022 History of Present illness Narrative* Hodan Christine PA-C - 02/09/2022 1:00 PM EDT [facility] [place], 02/09/2022: Name: Rajendra Lucero : 1955 The [...] answers. Hodan Christine PA-C documented in this encounterCleveland Clinic [facility]04-05-2022 History of Present illness Narrative* Phuc [...] Diagnosis Date COPD (chronic obstructive pulmonary disease) ([facility]) 02/03/2010 Coronary artery disease No [place], CHF. No heart cath. Diverticulosis of colon [...] WISDOM TEETH Current Outpatient Medications Medication Sig ybltzjtiyip-gnappykaw-vugeycvp (TRELEGY ELLIPTA) 100-62.5-25 mcg inhalation powder USE [...] See patient instructions. Phuc Martines DO [address] [place] [address] documented in this encounterCleveland Clinic [facility]03-16-2021 History of Present illness Narrative* Vonnie [...] 10, 2021 11:09 AM documented in this encounterCleveland Clinic [facility]07-23-2019 History of Past illness Narrative* Problem Noted Date Resolved Date Routine physical examination 05/19/2019 Screening for colon cancer 08/27/201810/13 Overview: Added automatically from request for surgery [id number] Acute bronchitis with chroni c obstructive pulmonary [...] of this encounter (statuses as of 01/30/2022) [facility] of Past illness Narrative* Problem Noted Date Resolved Date Routine physical examination 05/19/2019 Screening for colon cancer 08/27/201810/13 Overview: Added automatically from request for surgery [id number] Acute bronchitis with chroni c obstructive pulmonary [...] of this encounter (statuses as of 02/09/2022) [facility] of [facility] illness Narrative* Problem Noted Date Resolved Date Routine physical examination 05/19/2019 Screening for colon cancer 08/27/201810/13 Overview: Added automatically from request for surgery [id number] Acute bronchitis with chroni c obstructive pulmonary [...] of this encounter (statuses as of 03/07/2022) [facility] of [facility] illness Narrative* Problem Noted Date Resolved Date Routine physical examination 05/19/2019 Screening for colon cancer 08/27/201810/13 Overview: Added automatically from request for surgery [id number] Acute bronchitis with chroni c obstructive pulmonary [...] of this encounter (statuses as of 03/16/2022) [facility] of [facility] Narrative* Problem Noted Date Resolved Date Routine physical examination 05/19/2019 Screening for colon cancer 08/27/201810/13 Overview: Added automatically from request for surgery [id number] Acute bronchitis with chroni c obstructive pulmonary [...] of this encounter (statuses as of 03/16/2022) [facility] Narrative* Problem Noted Date Resolved Date Routine physical examination 05/19/2019 Screening for colon cancer 08/27/201810/13 Overview: Added automatically from request for surgery [id number] Acute bronchitis with chroni c obstructive pulmonary [...] of this encounter (statuses as of 03/29/2022) [facility] Narrative* Problem Noted Date Resolved Date Routine physical examination 05/19/2019 Screening for colon cancer 08/27/201810/13 Overview: Added automatically from request for surgery [id number] Acute bronchitis with chroni c obstructive pulmonary [...] of this encounter (statuses as of 07/04/2022) [facility] Narrative* Problem Noted Date Resolved Date Routine physical examination 05/19/2019 Screening for colon cancer 08/27/201810/13 Overview: Added automatically from request for surgery [id number] Acute bronchitis with chroni c obstructive pulmonary [...] of this encounter (statuses as of 07/05/2022) [facility] Narrative* Problem Noted Date Resolved Date Routine physical examination 05/19/2019 Screening for colon cancer 08/27/201810/13 Overview: Added automatically from request for surgery [id number] Acute bronchitis with chroni c obstructive pulmonary [...] of this encounter (statuses as of 08/01/2022) [facility] Narrative* Problem Noted Date Resolved Date Routine physical examination 05/19/2019 Screening for colon cancer 08/27/201810/13 Overview: Added automatically from request for surgery [id number] Acute bronchitis with chroni c obstructive pulmonary [...] of this encounter (statuses as of 08/03/2022) [facility] Narrative* Problem Noted Date Resolved Date Routine physical examination 05/19/2019 Screening for colon cancer 08/27/201810/13 Overview: Added automatically from request for surgery [id number] Acute bronchitis with chroni c obstructive pulmonary [...] of this encounter (statuses as of 08/31/2022) [facility] Narrative* Problem Noted Date Resolved Date Routine physical examination 05/19/2019 Screening for colon cancer 08/27/201810/13 Overview: Added automatically from request for surgery [id number] Acute bronchitis with chroni c obstructive pulmonary [...] of this encounter (statuses as of 09/10/2022) [facility] Narrative* Problem Noted Date Resolved Date Routine physical examination 05/19/2019 Screening for colon cancer 08/27/201810/13 Overview: Added automatically from request for surgery [id number] Acute bronchitis with chroni c obstructive pulmonary [...] of this encounter (statuses as of 09/14/2022) [facility] Narrative* Problem Noted Date Resolved Date Routine physical examination 05/19/2019 Screening for colon cancer 08/27/201810/13 Overview: Added automatically from request for surgery [id number] Acute bronchitis with chroni c obstructive pulmonary [...] of this encounter (statuses as of 09/28/2022) [facility] Narrative* Problem Noted Date Resolved Date Routine physical examination 05/19/2019 Screening for colon cancer 08/27/201810/13 Overview: Added automatically from request for surgery [id number] Acute bronchitis with chroni c obstructive pulmonary [...] of this encounter (statuses as of 10/10/2022) [facility] Narrative* Problem Noted Date Resolved Date Routine physical examination 05/19/2019 Screening for colon cancer 08/27/201810/13 Overview: Added automatically from request for surgery [id number] Acute bronchitis with chroni c obstructive pulmonary [...] of this encounter (statuses as of 10/19/2022) [facility] Narrative* Problem Noted Date Resolved Date Routine physical examination 05/19/2019 Screening for colon cancer 08/27/201810/13 Overview: Added automatically from request for surgery [id number] Acute bronchitis with chroni c obstructive pulmonary [...] of this encounter (statuses as of 10/30/2022) [facility]arr[facility]* Problem Noted Date Resolved Date Routine physical examination 05/19/2019 Screening for colon cancer 08/27/201810/13 Overview: Added automatically from request for surgery [id number] Acute bronchitis with chroni c obstructive pulmonary [...] of this encounter (statuses as of 12/05/2022) [facility]arr[facility]* Problem Noted Date Diagnosed Date Resolved Date Routine physical examination 05/19/2019 10/13/2019 Screening for colon cancer 08/27/2018 1 12/14/2018 Overview: Added automatically from request for surgery [id number] Acute bronchitis with chroni c obstructive pulmonary [...] of this encounter (statuses as of 05/30/2023) [facility] Narrative* Problem Noted Date Diagnosed Date Resolved Date Routine physical examination 05/19/2019 10/13/2019 Screening for colon cancer 08/27/2018 1 12/14/2018 Overview: Added automatically from request for surgery [id number] Acute bronchitis with chroni c obstructive pulmonary [...] of this encounter (statuses as of 06/13/2023) [facility] Narrative* Problem Noted Date Diagnosed Date Resolved Date Routine physical examination 05/19/2019 10/13/2019 Screening for colon cancer 08/27/2018 1 12/14/2018 Overview: Added automatically from request for surgery [id number] Acute bronchitis with chroni c obstructive pulmonary [...] of this encounter (statuses as of 06/13/2023) [facility] Narrative* Problem Noted Date Diagnosed Date Resolved Date Routine physical examination 05/19/2019 10/13/2019 Screening for colon cancer 08/27/2018 1 12/14/2018 Overview: Added automatically from request for surgery [id number] Acute bronchitis with chroni c obstructive pulmonary [...] of this encounter (statuses as of 07/30/2023) [facility] Narrative* Problem Noted Date Diagnosed Date Resolved Date Routine physical examination 05/19/2019 10/13/2019 Screening for colon cancer 08/27/2018 1 12/14/2018 Overview: Added automatically from request for surgery [id number] Acute bronchitis with chroni c obstructive pulmonary [...] of this encounter (statuses as of 08/14/2023) [facility] Narrative* Problem Noted Date Diagnosed Date Resolved Date Routine physical examination 05/19/2019 10/13/2019 Screening for colon cancer 08/27/2018 1 12/14/2018 Overview: Added automatically from request for surgery [id number] Acute bronchitis with chroni c obstructive pulmonary [...] of this encounter (statuses as of 08/16/2023) [facility]arrative* Problem Noted Date Diagnosed Date Resolved Date Routine physical examination 05/19/2019 10/13/2019 Screening for colon cancer 08/27/2018 1 12/14/2018 Overview: Added automatically from request for surgery [id number] Acute bronchitis with chroni c obstructive pulmonary [...] of this encounter (statuses as of 2023) [facility] Narrative* Problem Noted Date Diagnosed Date Resolved Date Routine physical examination 05/19/2019 10/13/2019 Screening for colon cancer 08/27/2018 1 12/14/2018 Overview: Added automatically from request for surgery [id number] Acute bronchitis with chroni c obstructive pulmonary [...] of this encounter (statuses as of 2023) [facility] History of Past illness Narrative* Problem Noted Date Diagnosed Date Resolved Date Routine physical examination 05/19/2019 10/13/2019 Screening for colon cancer 08/27/2018 1 12/14/2018 Overview: Added automatically from request for surgery [id number] Acute bronchitis with chroni c obstructive pulmonary disease (COPD) 11/06/2017 10/13/2019 Well adult exam 11/09/2016 10/13/2019 COPD (chronic obstructive pulmonary disease) 0 10/13/2019 Overview: titration 01/07/2013 RESPIRATORY DATA: This study was performed on room air. Snoring was noted. There were 26 respiratory events consisting of 0 apneas and 26 hypopneas. The apnea-hypopnea index (AHI) was 9.8 and the central-apnea index (PERDO) was 0.0. The mean oxygen saturation during [...] of this encounter (statuses as of 2023) [facility] History of Past illness Narrative* Problem Noted Date Diagnosed Date Resolved Date Routine physical examination 05/19/2019 10/13/2019 Screening for colon cancer 08/27/2018 1 12/14/2018 Overview: Added automatically from request for surgery [id number] Acute bronchitis with chroni c obstructive pulmonary [...] of this encounter (statuses as of 2023) [facility] History of Past illness Narrative* Problem Noted Date Diagnosed Date Resolved Date Routine physical examination 05/19/2019 10/13/2019 Screening for colon cancer 08/27/2018 1 12/14/2018 Overview: Added automatically from request for surgery [id number] Acute bronchitis with chroni c obstructive pulmonary [...] of this encounter (statuses as of 09/05/2023) [facility] History of Past illness Narrative* Problem Noted Date Diagnosed Date Resolved Date Routine physical examination 05/19/2019 10/13/2019 Screening for colon cancer 08/27/2018 1 12/14/2018 Overview: Added automatically from request for surgery [id number] Acute bronchitis with chroni c obstructive pulmonary [...] of this encounter (statuses as of 09/18/2023) [facility] History of Past illness Narrative* Problem Noted Date Diagnosed Date Resolved Date Routine physical examination 05/19/2019 10/13/2019 Screening for colon cancer 08/27/2018 1 12/14/2018 Overview: Added automatically from request for surgery [id number] Acute bronchitis with chroni c obstructive pulmonary disease (COPD) ([facility]) 11/06/2017 9 Well adult exam [...] of this encounter (statuses as of 10/09/2023) [facility] History of Past illness Narrative* Problem Noted Date Diagnosed Date Resolved Date Routine physical examination 05/19/2019 10/13/2019 Screening for colon cancer 08/27/2018 1 12/14/2018 Overview: Added automatically from request for surgery [id number] Acute bronchitis with chroni c obstructive pulmonary disease (COPD) ([facility]) 11/06/2017 9 Well adult exam [...] of this encounter (statuses as of 12/25/2023) [facility] History of Past illness Narrative* Problem Noted Date Diagnosed Date Resolved Date Routine physical examination 05/19/2019 10/13/2019 Screening for colon cancer 08/27/2018 1 12/14/2018 Overview: Added automatically from request for surgery [id number] Acute bronchitis with chroni c obstructive pulmonary [...] of this encounter (statuses as of 12/27/2023) [facility] History of Past illness Narrative* Problem Noted Date Diagnosed Date Resolved Date Routine physical examination 05/19/2019 10/13/2019 Screening for colon cancer 08/27/2018 1 12/14/2018 Overview: Added automatically from request for surgery [id number] Acute bronchitis with chroni c obstructive pulmonary disease (COPD) ([facility]) 11/06/2017 9 Well adult exam [...] of this encounter (statuses as of 01/30/2024) [facility] History of Past illness Narrative* Problem Noted Date Diagnosed Date Resolved Date Routine physical examination 05/19/2019 10/13/2019 Screening for colon cancer 08/27/2018 1 12/14/2018 Overview: Added automatically from request for surgery [id number] Acute bronchitis with chroni c obstructive pulmonary disease (COPD) ([facility]) 11/06/2017 12/17/201 9 Well adult exam 11/09/2016 [...] of this encounter (statuses as of 02/13/2024) [facility] Milena Rodas [facility] Note Date/Time February 23, 2025 2:[address] [facility] Medical Records Department [address] [place] [address] Counseling Note - Pharmacy 02/23/25 1410 MR#: [id number] Acct: [id number] Name: GEEsperanzaRAJENDRA Rep #:[id number] : 1955 69 From: Milena Rodas PCP: Dr. Phuc Martines, DO Status:AD M IN Y Location: [place] [id number] Service has performed discharge [...] understanding of their dischargemedications. Patient counseled by student outreach coordinator, Pete. Medications at Discharge Home Medications Oxygen, [...] sodium chloride 0.65 % nasal spray aerosol ([place] Saline) 1 spray intranasal BID PRN dry [...] Signature (if applicable): Date CC: ~ Signed [facility] Work Phone: Consult note Author Milena Rodas [facility] Note Date/Time May 17, 2025 11:[address] [facility] Medical Records Department [address] [place] [address] Counseling Note - Pharmacy 05/17/25 1140 MR#: [id number] Acct: [id number] Name: RAJENDRA LUCERO Rep #:[id number] : 1955 69 From: Milena Rodas PCP: Dr. Phuc Martines, DO Status:AD IN Location: [place] [id number] [place] [facility]con[facility] Pharmacy Service has performed discharge [...] sodium chloride 0.65 % nasal spray aerosol ([place] Saline) 1 spray intranasal BID PRN dry nasal passages 02/19/25 ascorbic acid (vitamin C) 500 mg capsule 500 mg PO DAILY PRN supplement 03/30/25 cinnamon bark 500 mg capsule (Cinnamon) 500 mg PO QDAY supplement 03/30/25 mecobalamin (vitamin B12) 1,000 mcg chewable tablet 1,000 mcg PO QDAY [id number]/03/25 nystatin 100,000 unit/gram topical cream 1 applic [...] Signature (if applicable): Date CC: ~ Signed [facility] Work Phone: Discharge summary Author George Polanco [facility] Note Date/Time May 17, 2025 11:1 7am [facility] Medical Records Department [address] [place] [address] Discharge Summary 05/17/25 1113 MR#: [id number] Acct: [id number] Name: RAJENDRA LUCERO Rep #:[id number] : 1955 69 From: George Willis PCP: Dr. Phuc Martines DO Status:AD M IN [facility] Prov[facility] Date of Admission: 05/13/25 [...] is a 69-year-old female who presented to [facility] ED on 05/13/2025 with worsening shortness of [...] flow oxygen therefore probably 1 more day. 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 05/17: She is [...] with naps while inpatient as noted above. assistant restaurant general manager to help, set up sleep study [...] patient will drink 4-5 alcoholic drinks. on CICA protocol without medications for now. Monitor. 6. [...] of malignancy or associated symptoms. 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 Diana Gonzalez MD; Dr. Phuc Martines DO; Dr. George Polanco MD~ Signed [facility] Work Phone: Discharge summary Author George Polanco [facility] Note Date/Time May 17, 2025 11:2 2am [facility] Medical Records Department [address] [place] [address] Transfer to [facility] MR#: [id number] Acct: [id number] Name: RAJENDRA LUCERO Rep #:[id number] : 1955 69 From: George Willis PCP: Dr. Phuc Martines DO Status:AD M IN Certification of patient admission REQUIRED AT TIME OF ADMISSION. I CERTIFY THAT POST-HOSPITAL ECF SERVICES ARE REQUIRED TO BE GIVEN ON AN IN-PATIENT BASIS BECAUSE OF THE ABOVE NAMED PATIENT'S NEED FOR CORRECTION CARE ON A CONTINUING BASIS FOR THE [...] is a 69-year-old female who presented to [facility] ED on 05/13/2025 with worsening shortness of [...] flow oxygen therefore probably 1 more day. 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 05/17: She is [...] with naps while inpatient as noted above. assistant restaurant general manager to help, set up sleep study [...] of malignancy or associated symptoms. 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 Nicko Vallejo DO; Dr. Phuc Martines DO ~ ADDENDUM by Dr. George Polanco MD on 05/17/25 at 1122 Addendum She needs BiPAP during nap and night, 15/8 mmHg 05/17/25 1122 <Electronically signed by George Polanco MD> cc: Dr. Nicko Vallejo DO; Dr. Phuc Martines DO ~* Signed [facility] Work Phone: Evaluation note* Diagnosis Chronic obstructive pulmonary disease, unspecified COPD type (HCC)- Primary Essential hypertension Unspecified essential hypertension Impaired fasting glucose Dyslipidemia Other and unspecified hyperlipidemia Vitamin D deficiency Unspecified vitamin D deficiency Lightheaded Dizziness and giddiness [facility] Diagnosis Chronic obstructive pulmonary disease, unspecified COPD type (HCC)- Primary Dyspnea and respiratory abnormalities Other dyspnea and respiratory abnormality [facility] Diagnosis Chronic obstructive pulmonary disease, unspecified COPD type (HCC) [facility] Diagnosis Chronic obstructive pulmonary disease, unspecified COPD type (HCC) [facility] Diagnosis Chronic obstructive pulmonary disease, unspecified COPD type (HCC)- Primary Chronic hypoxemic respiratory failure (HCC) Chronic respiratory failure Dyspnea and respiratory abnormalities Other dyspnea and respiratory abnormality Former smoker Personal history of tobacco use, presenting hazards to health [facility] Diagnosis Chronic obstructive pulmonary disease, unspecified COPD type (HCC)- Primary [facility] Diagnosis Chronic obstructive pulmonary disease, [...] on supplemental oxygen [facility] Diagnosis Cyst of spleen- Primary Other diseases of spleen [facility] Diagnosis Encounter for screening mammogram for breast cancer [facility] Diagnosis COVID- Primary Chronic obstructive pulmonary disease, unspecified COPD type (HCC) Bacterial sinusitis Unspecified sinusitis (chronic) Oxygen dependent Dependence on supplemental oxygen [facility] Diagnosis Chronic obstructive pulmonary disease, unspecified COPD type (HCC) Oxygen dependent Dependence on supplemental oxygen [facility] Diagnosis Cyst of spleen- Primary Other diseases of spleen [facility] Diagnosis Chronic obstructive pulmonary disease, unspecified COPD type (HCC)- Primary Oxygen dependent Dependence on supplemental oxygen [facility] Diagnosis Chronic obstructive pulmonary disease, unspecified COPD type (HCC) [facility] Diagnosis Chronic obstructive pulmonary disease, unspecified COPD type (HCC)- Primary Oxygen dependent Dependence on supplemental oxygen [facility] Diagnosis Chronic obstructive pulmonary disease, unspecified COPD type (HCC) Oxygen dependent Dependence on supplemental oxygen [facility] Diagnosis COPD, severe (HCC)- Primary Chronic airway obstruction, not elsewhere classified Chronic hypoxemic respiratory failure (HCC) Chronic respiratory failure Former cigarette smoker Personal history of tobacco use, presenting hazards to health Morbid obesity (HCC) Morbid obesity [facility] Diagnosis Essential hypertension Unspecified essential hypertension [facility] Diagnosis Essential hypertension- Primary Unspecified [...] and unspecified hyperlipidemia [facility] Diagnosis Encounter for screening mammogram for breast cancer [facility] Diagnosis Cyst of spleen Other diseases of spleen [facility] Diagnosis Chronic obstructive pulmonary disease, unspecified COPD type (HCC) Chronic respiratory failure with hypoxia (HCC) Chronic respiratory failure Stage 3 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) Oxygen dependent Dependence on supplemental oxygen [facility] Diagnosis Cyst of spleen Other diseases of spleen [facility] Diagnosis Chronic obstructive pulmonary disease, unspecified COPD type (HCC)- Primary Oxygen dependent Dependence on supplemental oxygen [facility] Diagnosis Encounter for screening mammogram for malignant neoplasm of breast Other screening mammogram [facility] Diagnosis Former cigarette smoker Personal history of tobacco use, presenting hazards to health [facility] Diagnosis Dyslipidemia- Primary Other and unspecified hyperlipidemia Impaired fasting glucose [facility] Diagnosis Stage 3 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)- Primary Chronic respiratory failure with hypoxia (HCC) Chronic respiratory failure Morbid obesity with BMI of 45.0-49.9, adult (HCC) Morbid obesity Lung nodules Other nonspecific abnormal finding of lung field [facility] Diagnosis Skin infection- Primary Unspecified local infection of skin and subcutaneous tissue [facility] Diagnosis Acute bronchitis with chronic [...] severe COPD by GOLD classification ([facility]) Fatigue, unspecified type Oxygen dependent Dependence on supplemental oxygen Morbid obesity with BMI of 45.0-49.9, adult (HCC) Morbid obesity Thoracic aortic ectasia (HCC) Thoracic aortic ectasia [facility] Diagnosis Stage 3 severe COPD by GOLD classification ([facility])- Primary Chronic hypoxemic respiratory failure (HCC) Chronic respiratory failure Former cigarette smoker Personal history of tobacco use, presenting hazards to health Morbid obesity (HCC) Morbid obesity [facility] Diagnosis Essential hypertension Unspecified essential hypertension [facility] Diagnosis COVID Bacterial sinusitis Unspecified sinusitis (chronic) Chronic obstructive pulmonary disease, unspecified COPD type (HCC) [facility] Diagnosis Acute gout involving toe of right foot, unspecified cause [facility] Diagnosis Multiple lung nodules- Primary Other nonspecific abnormal finding of lung field Encounter for screening for lung cancer Former tobacco use Personal history of tobacco use, presenting hazards to health [facility] Diagnosis Former cigarette smoker Personal history of tobacco use, presenting hazards to health [facility] Diagnosis Encounter for screening mammogram for breast cancer [facility] Diagnosis Dyslipidemia- Primary Other and unspecified hyperlipidemia Chronic obstructive pulmonary disease, unspecified COPD type (HCC) Impaired fasting glucose [facility] Diagnosis Encounter for screening mammogram for breast cancer [facility] Diagnosis Stage 3 severe COPD by GOLD classification ([facility])- Primary Chronic respiratory failure with hypoxia (HCC) Chronic respiratory failure Former cigarette smoker Personal history of tobacco use, presenting hazards to health [facility] Diagnosis Medicare annual wellness visit, subsequent- Primary Routine general medical examination at a health care facility Hair thinning Alopecia, unspecified Fatigue, unspecified type Impaired fasting glucose Dyslipidemia Other and unspecified hyperlipidemia Vitamin D deficiency Unspecified vitamin D deficiency Stage 3 severe COPD by GOLD classification ([facility]) Essential hypertension Unspecified essential hypertension Oxygen dependent Dependence on supplemental oxygen Morbid obesity with BMI of 45.0-49.9, adult (HCC) Morbid obesity [facility] Diagnosis Multiple lung nodules- Primary Other nonspecific abnormal finding of lung field Former tobacco use Personal history of tobacco use, presenting hazards to health [facility] Diagnosis Lung nodules- Primary Other nonspecific abnormal finding of lung field [facility] Diagnosis Hospital discharge follow-up- Primary Other follow-up examination Atrial flutter, unspecified type (HCC) Congestive heart failure, unspecified HF chronicity, unspecified heart failure type (HCC) Stage 3 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) Oxygen dependent Dependence on supplemental oxygen Essential hypertension Unspecified essential hypertension documented in this encounter [facility] note* Diagnosis Daytime sleepiness- Primary Stage 3 severe COPD by GOLD classification ([facility]) Chronic respiratory failure with hypoxia (HCC) Chronic respiratory failure documented in this encounter [facility] note* Diagnosis Essential (primary) hypertension Unspecified essential hypertension Atrial flutter, unspecified type ([facility]) documented in this encounter [facility] note* Diagnosis Acute cystitis with hematuria Acute cystitis Candidal intertrigo Candidiasis of skin and nails Confusion Unspecified psychosis [facility] Diagnosis Acute confusion- Primary Delirium due to conditions classified elsewhere Atrial flutter, unspecified type (HCC) Tachycardia Tachycardia, unspecified Stage 3 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) Congestive heart failure, unspecified HF chronicity, unspecified heart failure type (HCC) Hypersomnia Hypersomnia, unspecified Hives Urticaria, unspecified Abnormal pulse oximetry Abnormal arterial blood gases documented in this encounter [facility] note* Diagnosis Hospital discharge follow-up- Primary Other follow-up examination Atrial flutter, unspecified type (HCC) Stage 3 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) RUQ pain Abdominal pain, right upper quadrant Congestive heart failure, unspecified HF chronicity, unspecified heart failure type (HCC) Essential hypertension Unspecified essential hypertension documented in this encounter [facility] note* Diagnosis Elevated alkaline phosphatase level- Primary Other nonspecific abnormal serum enzyme levels [facility] Diagnosis Centrilobular emphysema (HCC)- Primary Oxygen dependent Dependence on supplemental oxygen Chronic respiratory failure with hypoxia (HCC) Essential hypertension Unspecified essential hypertension Typical atrial flutter (HCC) Alcohol abuse Nondependent alcohol abuse, unspecified drinking behavior Mixed hyperlipidemia Bilateral lower extremity edema [facility] Author Virginia Henriquez [facility] Note Date/Time April 23, 2025 10:1 5pm [facility] Medical Records Department [address] [place] [address] H&P Exam - Hospitalist 04/23/259 MR#: [id number] Acct: [id number] Name: RAJENDRA LUCERO Rep #:[id number] : 1955 69 From: Virginia Henriquez MD PCP: Dr. Phuc Martines, DO Status:[facility] [place] Location: [place] [id number] HPI - General General Date of [...] abuse recently cut back [facility] with history of increased [...] 1 and placed on a diltiazem drip. [facility] [facility] Medical History (Updated 04/23/25 @ [...] BID PRN dry 02/19/25 Unknown History aerosol ([place] Saline) nasal passages triamcinolone acetonide 0.5 % [...] 83.8 H, Lymph % (Auto) 7.9 L, [place] % (Auto) 6.6, Eos % (Auto) 0.8, [...] Clarity Clear, Urine pH 6.0, Ur Specific [place] 1.015, Urine Protein 30 H, Urine Glucose [...] IMPRESSION: Cardiomegaly with mild congestion. Reading Location: [facility] Brain CT 04/23/25 18:04 IMPRESSION: 1. No acute intracranial hemorrhage, midline shift or mass effect. If symptoms persist, further evaluation with MRI is recommended. 2. Mild small vessel ischemic/degenerative changes. 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 Elena did discuss this with her [...] Time: 16minutes. Charges/Coding Visit Charges Inpatient E&M: 31245 Init Hosp L3 Procedures Hospitalists Procedures: 13083 Advncd Care Plan 30 Min 04/23/259 <Electronically signed by Virginia Henriquez MD> Cosigner Signature (if applicable): CC: Dr. Virginia Henriquez MD; Dr. Phuc Martines, DO~ Signed [facility] Work Phone: Hospital Discharge instructionsAmbulatory Orders* Electrophysiology Location: None Selected [facility] Work Phone: Reason for referral (narrative)* Outpatient Procedure (Routine) - Authorized Specialty Diagnoses / Procedures Referred By Contac t Referred To [facility] Diagnoses Chronic obstructive pulmonary disease, unspecified COPD type (HCC) Procedures ECHO ECHO TTHRC R-T 2D W/WOM-MODE COMPL SPEC&COLR D Hodan Christine PA-C [address] [place] [address] [address] [facility] [address] [address] [address] Referral ID Status Reason Start Date Expiration Date Visits Requested Visits Authorized [id number] Authorized Auto-Generat ed Referral OON/Self Pay Override 02/09/2022 02/09/2023 1 1 * Outpatient Procedure (Routine) - Authorized Specialty Diagnoses / Procedures Referred By Contac t Referred To Contact [facility] Diagnoses Chronic obstructive pulmonary disease, unspecified COPD type (HCC) Procedures OXIMETRY WITH AMBULATION NONINVASIVE EAR/PULSE OXIMETRY MULTIPLE Hodan Tejada PA-C [address] [place] [address] [facility] [place] [address] [place] [address] Referral ID Status Reason Start Date Expiration Date Visits Requested Visits Authorized [id number] Authorized Auto-Generat ed Referral OON/Self Pay Override 02/09/2022 03/11/2023 1 1 * Outpatient Procedure (Routine) - Authorized Specialty Diagnoses / Procedures Referred By Contac t Referred To Contact [facility] Diagnoses Chronic obstructive pulmonary disease, unspecified COPD type (HCC) Procedures SPIROMETRY BASELINE ONLY SPMTRY W/VC EXPIRATORY MARTIN W/WO MXML VOL VNTJ Hodan Christine PA-C [address] [place] [address] [address] Referral ID Status Reason Start Date Expiration Date Visits Requested Visits Authorized [id number] Authorized Auto-Generat ed Referral OON/Self Pay Override 02/09/2022 03/11/2023 1 1 [facility] for referral (narrative)* Diagnostic Procedure Only (Routine) - Authorized Specialty Diagnoses / Procedures Referred By Contac t Referred To Contact US IMAGING Diagnoses Cyst of spleen Procedures US ABD SPLEEN US ABDOMINAL REAL TIME W/IMAGE LIMITED Pratibha King APRN.FILTERS ASSEMBLER [address] [place] [address] Us Imaging Referral ID Status Reason Start Date Expiration Date Visits Requested Visits Authorized [id number] Authorized Auto-Generat ed Referral 08/30/2022 09/29/2023 1 1 [facility] for referral (narrative)* Diagnostic Procedure Only (Routine) - Authorized Specialty Diagnoses / Procedures Referred By Contac t Referred To Contact [facility] Diagnoses Encounter for screening mammogram for breast cancer Procedures ANUSHA SCREENING SCREENING MAMMOGRAPHY BI 2-VIEW BREAST INC Phuc Tejeda DO [address] [place] [address] Br Imaging [address] [place] [address] Referral ID Status Reason Start Date Expiration Date Visits Requested Visits Authorized [id number] Authorized Auto-Generat ed Referral 09/05/2022 10/05/2023 1 1 [facility] for referral (narrative)* Diagnostic Procedure Only (Routine) - Authorized Specialty Diagnoses / Procedures Referred By Contac t Referred To Contact US IMAGING Diagnoses Cyst of spleen Procedures US ABD SPLEEN US ABDOMINAL REAL TIME W/IMAGE LIMITED Pratibha King APRN.FILTERS ASSEMBLER [address] [place] [address] Us Imaging Referral ID Status Reason Start Date Expiration Date Visits Requested Visits Authorized [id number] Authorized Auto-Generat ed Referral 03/06/2023 10/06/2023 1 1 [facility] for referral (narrative)* Outpatient Procedure (Routine) - Authorized Specialty Diagnoses / Procedures Referred By Contac t Referred To Contact [facility] Diagnoses Chronic obstructive pulmonary disease, unspecified COPD type (HCC) Oxygen dependent Procedures OXIMETRY WITH AMBULATION NONINVASIVE EAR/PULSE OXIMETRY MULTIPLE RAFAELA Christine, Hodan Desouza PA-C [address] [facility] [place] [address] [facility] [place] [address] [place] [address] Referral ID Status Reason Start Date Expiration Date Visits Requested Visits Authorized [id number] Authorized Auto-Generat ed Referral 05/30/2023 06/28/2024 1 1 T [facility] for referral (narrative)* Diagnostic Procedure Only (Routine) - Authorized Specialty Diagnoses / Procedures Referred By Contac t Referred To Contact [facility] IM[facility] Diagnoses Encounter for screening mammogram for malignant neoplasm of breast Procedures ANUSHA SCREENING SCREENING MAMMOGRAPHY BI 2-VIEW BREAST INC Phuc Tejeda, DO [address] [place] [address] Br Imaging [address] [place] [address] Referral ID Status Reason Start Date Expiration Date Visits Requested Visits Authorized [id number] Authorized Auto-Generat ed Referral 09/12/2024 1 1 T [facility] for referral (narrative)* Diagnostic Procedure Only (Routine) - Closed Specialty Diagnoses / Procedures Referred By Contac t Referred To Contact BR IMAG[facility] Diagnoses Encounter for screening mammogram for breast cancer Procedures ANUSHA SCREENING SCREENING MAMMOGRAPHY BI 2-VIEW BREAST INC Phuc Tejeda, DO [address] [place] [address] Br Imaging [address] [place] [address] Referral ID Status Reason Start Date Expiration Date V isits Requested Visits Authorized [id number] Closed Auto-Generate d Referral 09/05/2022 10/05/2023 1 1 [facility] for referral (narrative)* Diagnostic Procedure Only (Routine) - Closed Specialty Diagnoses / Procedures Referred By Contac t Referred To Contact US IMAGING Diagnoses Cyst of spleen Procedures US ABD SPLEEN US ABDOMINAL REAL TIME W/IMAGE LIMITED Pratibha King, RESIDENCE LIFE COORDINATOR.FILTERS ASSEMBLER [address] [place] [address] [place] [address] Referral ID Status Reason Start Date Expiration Date V isits Requested Visits Authorized [id number] Closed Auto-Generate d Referral 03/06/2023 10/06/2023 1 1 [facility] for referral (narrative)* Diagnostic Procedure Only (Routine) - Pending Review Specialty Diagnoses / Procedures Referred By Contac t Referred To Contact US IMAGING Diagnoses Cyst of spleen Procedures US ABD SPLEEN US ABDOMINAL REAL TIME W/IMAGE LIMITED Pratibha King, RESIDENCE LIFE COORDINATOR.FILTERS ASSEMBLER [address] [place] [address] [place] [address] Referral ID Status Reason Start Date Expiration Date Visits Requested Visits Authorized [id number] Pending Review Auto-Generat ed Referral 08/30/2022 09/29/2023 1 1 [facility] for referral (narrative)* Outpatient Procedure (Routine) - Closed Specialty Diagnoses / Procedures Referred By Contac t Referred To Contact [facility] Diagnoses Chronic obstructive pulmonary disease, unspecified COPD type (HCC) Oxygen dependent Procedures OXIMETRY WITH AMBULATION NONINVASIVE EAR/PULSE OXIMETRY Phuc Montgomery DO [address] [place] [address] [facility] [place] [facility] [place] [address] Referral ID Status Reason Start Date Expiration Date V isits Requested Visits Authorized [id number] Closed Auto-Generate d Referral 09/24/2022 10/24/2023 1 1 [facility] for referral (narrative)* Diagnostic Procedure Only (Routine) - Closed Specialty Diagnoses / Procedures Referred By Sonaliac t Referred To Contact [facility] IM[facility] Diagnoses Encounter for screening mammogram for malignant neoplasm of breast Procedures ANUSHA SCREENING SCREENING MAMMOGRAPHY BI 2-VIEW BREAST INC CAD Phuc Martines, DO [address] [place] [address] Br Imaging [address] [place] [address] Referral ID Status Reason Start Date Expiration Date V isits Requested Visits Authorized [id number] Closed Auto-Generate d Referral 08/14/2023 09/12/2024 1 1 [facility] for referral (narrative)* Diagnostic Procedure Only (Routine) - New Request Specialty Diagnoses / Procedures Referred By Marcy t Referred To Contact [facility] IM[facility] Diagnoses Encounter for screening mammogram for breast cancer Procedures ANUSHA SCREENING W ASHLEY SCREENING DIGITAL BREAST TOMOSYNTHESIS BI SCREENING MAMMOGRAPHY BI 2-VIEW BREAST INC CAD Phuc Martines, DO [address] [place] [address] Br Imaging [address] [place] [address] Referral ID Status Reason Start Date Expiration Date Visits Requested Visits Authorized [id number] New Request Auto-Generat ed Referral 11/20/2025 1 1 [facility] for referral (narrative)* Diagnostic Procedure Only (Routine) - Closed Specialty Diagnoses / Procedures Referred By Contac t Referred To Contact [facility] IMAG[facility] Diagnoses Encounter for screening mammogram for breast cancer Procedures ANUSHA SCREENING W ASHLEY SCREENING DIGITAL BREAST TOMOSYNTHESIS BI SCREENING MAMMOGRAPHY BI 2-VIEW BREAST INC CAD Phuc Martines, DO [address] [place] [address] Br Imaging [address] [place] [address] Referral ID Status Reason Start Date Expiration Date V isits Requested Visits Authorized [id number] Closed Auto-Generate d Referral 10/21/2024 11/20/2025 1 1 [facility] for visit Narrative* Outpatient Procedure (Routine) - Closed Specialty Diagnoses / Procedures Referred By Contac t Referred To Contact [facility] Diagnoses Chronic obstructive pulmonary disease, unspecified COPD type (HCC) Oxygen dependent Procedures OXIMETRY WITH AMBULATION NONINVASIVE EAR/PULSE OXIMETRY MULTIPLE Phuc Maldonado, DO [address] [place] [address] [facility] [place] [address] [place] [address] Referral ID Status Reason Start Date Expiration Date V isits Requested Visits Authorized [id number] Closed Auto-Generate d Referral 09/24/2022 10/24/2023 1 1 [facility] for visit Narrative* Diagnostic Procedure Only (Routine) - Closed Specialty Diagnoses / Procedures Referred By Contac t Referred To Contact [facility] IMAG[facility] Diagnoses Encounter for screening mammogram for breast cancer Procedures ANUSHA SCREENING SCREENING MAMMOGRAPHY BI 2-VIEW BREAST INC CAD Phuc Martines, DO [address] [place] [address] Br Imaging [address] [place] [phone] Referral ID Status Reason Start Date Expiration Date V isits Requested Visits Authorized [id number] Closed Auto-Generate d Referral 09/05/2022 10/05/2023 1 1 [facility] for visit Narrative* Diagnostic Procedure Only (Routine) - Closed Specialty Diagnoses / Procedures Referred By Contac t Referred To Contact US IMAGING Diagnoses Cyst of spleen Procedures US ABD SPLEEN US ABDOMINAL REAL TIME W/IMAGE LIMITED Pratibha King APRN.FILTERS ASSEMBLER [address] [place] [address] Us Imaging [facility] Referral ID Status Reason Start Date Expiration Date V isits Requested Visits Authorized [id number] Closed Auto-Generate d Referral 03/06/2023 10/06/2023 1 1 [facility] for visit Narrative* Diagnostic Procedure Only (Routine) - Closed Specialty Diagnoses / Procedures Referred By Marcy boudreaux Referred To Contact [facility] IMAG[facility] Diagnoses Encounter for screening mammogram for malignant neoplasm of breast Procedures ANUSHA SCREENING SCREENING MAMMOGRAPHY BI 2-VIEW BREAST INC CAD Phuc Martines L, DO [address] [place] [address] [facility] Imaging [address] [place] [address] Referral ID Status Reason Start Date Expiration Date V isits Requested Visits Authorized [id number] Closed Auto-Generate d Referral 08/14/2023 09/12/2024 1 1 [facility] for visit Narrative* Diagnostic Procedure Only (Routine) - Closed Specialty Diagnoses / Procedures Referred By Marcy boudreaux Referred To Contact [facility] Diagnoses Encounter for screening mammogram for breast cancer Procedures ANUSHA SCREENING W ASHLEY SCREENING DIGITAL BREAST TOMOSYNTHESIS BI SCREENING MAMMOGRAPHY BI 2-VIEW BREAST INC CAD Phuc Martines L, DO [address] [place] [address] Br Imaging [address] [place] [address] Referral ID Status Reason Start Date Expiration Date V isits Requested Visits Authorized [id number] Closed Auto-Generate d Referral 10/21/2024 11/20/2025 1 1 [facility] Summary Purpose Family History No Family [...] FoundDocuments on File Type Date 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 No February 19, 2025 4:27pm Advance Directive Response Recorded Date/ Time Do you have a Healthcare Power of Facility Coordinator? No February 19, 2025 4:27pm Do you have a Healthcare Power of Facility Coordinator? No April 23, 2025 4:50pm Advance Directive Response Recorded Date/ Time Do you have a Healthcare Power of Facility Coordinator? No February 19, 2025 4:27pm Do you have a Healthcare Power of Facility Coordinator? Yes April 23, 2025 10:47pm Name of Medical Power of Facility Coordinator Lizbet Ottoniel April 23, 2025 10:47pm Advance Directive Response Recorded Date/ Time Do you have a Healthcare Power of Facility Coordinator? No February 19, 2025 4:27pm Do you have a Healthcare Power of Facility Coordinator? Yes April 23, 2025 10:47pm Name of Medical Power of Facility Coordinator Lizbet Alcazar April 23, 2025 10:47pm Do you have a Healthcare Power of Facility Coordinator? Yes May 13, 2025 1:22pm Advance Directive Response Recorded Date/ Time Do you have a Healthcare Power of Facility Coordinator? No February 19, 2025 4:27pm Do you have a Healthcare Power of Facility Coordinator? Yes April 23, 2025 10:47pm Name of Medical Power of Facility Coordinator Lizbet Alcazar April 23, 2025 10:47pm Do you have a Healthcare Power of Facility Coordinator? Yes May 13, 2025 7:54pm Advance Directive Response Recorded Date/ Time Do you have a Healthcare Power of Facility Coordinator? Yes April 23, 2025 10:47pm Name of Medical Power of Facility Coordinator Lizbet Alcazar April 23, 2025 10:47pm Advance Directives on File Yes Ganga boudreaux 2024 11:01am Living Will Yes June 24 11:01am Do you have a Healthcare Power of Facility Coordinator? Yes June 24, 2025 11:01am Name of Medical Power of Facility Coordinator Lizbet Alcazar June 24, 2025 11:01am Advance Directives Yes June 24, 2025 11:01am Do you have a Healthcare Power of Facility Coordinator? Yes May 13, 2025 7:54pm Reason for Referral Specialty Diagnoses / Procedures Referred By Contac t Referred To Contact CT IMAGING Diagnoses Chronic obstructive pulmonary disease, unspecified COPD type (HCC) Chronic respiratory failure with hypoxia (HCC) Stage 3 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) Oxygen dependent Procedures CT CHEST WO IVCON DIAGNOSTIC COMPUTED TOMOGRAPHY THORAX W/O CNTRST Phuc Martines L, DO [address] [place] [address] Ct Imaging Referral ID Status Reason Start Date Expiration Date Visits Requested Visits Authorized [id number] Authorized Auto-Generat ed Referral 08/01/2022 08/31/2023 1 1 Specialty Diagnoses / Procedures Referred By Contac t Referred To Contact CT IMAGING Diagnoses Chronic obstructive pulmonary disease, unspecified COPD type (HCC) Chronic respiratory failure with hypoxia (HCC) Stage 3 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) Oxygen dependent Procedures CT CHEST WO IVCON DIAGNOSTIC COMPUTED TOMOGRAPHY THORAX W/O CNTRST Phuc Martines L, DO [address] [place] [address] [place] [address] Referral ID Status Reason Start Date Expiration Date V isits Requested Visits Authorized [id number] Closed Auto-Generate d Referral 08/01/2022 08/31/2023 1 1 Specialty Diagnoses / Procedures Referred By Contac t Referred To Contact CT IMAGING Diagnoses Lung nodules Procedures CT LUNG FOLLOWUP WO IVCON DIAGNOSTIC COMPUTED TOMOGRAPHY THORAX W/O CNTRST Maricruz Camp, RESIDENCE LIFE COORDINATOR.FILTERS ASSEMBLER [address] [place] [address] [place] [address] Referral ID Status Reason Start Date Expiration Date Visits Requested Visits Authorized [id number] New Request Auto-Generat ed Referral 12/26/2024 11/18/2025 1 1 Specialty Diagnoses / Procedures Referred By Contac t Referred To Contact CT IMAGING Diagnoses Former cigarette smoker Procedures CT LUNG SCREEN WO IVCON COMPUTED TOMOGRAPHY THORAX LW DOSE LNG CA SCR C- Maricruz Camp, RESIDENCE LIFE COORDINATOR.FILTERS ASSEMBLER [address] [place] [address] [place] [address] Referral ID Status Reason Start Date Expiration Date V isits Requested Visits Authorized [id number] Closed Auto-Generate d Referral 10/11/2023 11/09/2024 1 [...] Hypoxia February 23, 2025 1:2 2pm S/P [facility] 02/23 (AFIB) March 30, 2025 11:2 [...] Hypoxia February 23, 2025 1:2 2pm S/P [facility] 02/23 (AFIB) March 30, 2025 11:2 [...] 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, 2025 2: 33pm 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 current use of anticoagulant A ugust 2024 2:33pm Chief Complaint Admit Date S/P [facility] 02/23 (AFIB) March 30, 2025 11:2 [...] 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, 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 A ugust 2024 2:33pm Chief Complaint Admit Date S/P [facility] 02/23 (AFIB) March 30, 2025 11:2 [...] 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, 2025 2: 33pm senior care current use of anticoagulant A ugust 2024 2:33pm Atrial fibrillation July 30, 2025 11 :00am Encounter for monitoring anti-arrhythmic therapy July 30, 2025 11:00am Additional Source Comments INFORMATION SOURCE (unrecogn ized section and content) DATE CREATED AUTHOR 10/05/2018 [facility] DATE CREATED AUTHOR AUTHOR'S ORGANIZ ATION 05/16/2025 [facility] DATE CREATED AUTHOR AUTHOR'S ORGANIZ ATION 06/30/2025 [facility] DATE CREATED AUTHOR AUTHOR'S ORGANIZ ATION 08/06/2025 [facility] DATE CREATED AUTHOR AUTHOR'S ORGANIZ ATION 08/11/2025 [facility] Source Comments (unrecognize d section and content) In the event this informatio n is protected by the Federal Confidentiality of Alcohol and Drug Abuse Patient Records regulations: The Federal rules restrict any use of the information to criminally investigate or prosecute any alcohol or drug abuse patient.[facility] the event this information is protected by the Federal Confidentiality of Alcohol and Drug Abuse Patient Records regulations: The Federal rules restrict any use of the information to criminally investigate or prosecute any alcohol or drug abuse patient.[facility] the event this information is protected by the Federal Confidentiality of Alcohol and Drug Abuse Patient Records regulations: The Federal rules restrict any use of the information to criminally investigate or prosecute any alcohol or drug abuse patient.[facility] the event this information is protected by the Federal Confidentiality of Alcohol and Drug Abuse Patient Records regulations: The Federal rules restrict any use of the information to criminally investigate or prosecute any alcohol or drug abuse patient.[facility] the event this information is protected by the Federal Confidentiality of Alcohol and Drug Abuse Patient Records regulations: The Federal rules restrict any use of the information to criminally investigate or prosecute any alcohol or drug abuse patient.[facility] the event this information is protected by the Federal Confidentiality of Alcohol and Drug Abuse Patient Records regulations: The Federal rules restrict any use of the information to criminally investigate or prosecute any alcohol or drug abuse patient.[facility] the event this information is protected by the Federal Confidentiality of Alcohol and Drug Abuse Patient Records regulations: The Federal rules restrict any use of the information to criminally investigate or prosecute any alcohol or drug abuse patient.[facility] the event this information is protected by the Federal Confidentiality of Alcohol and Drug Abuse Patient Records regulations: The Federal rules restrict any use of the information to criminally investigate or prosecute any alcohol or drug abuse patient.[facility] the event this information is protected by the Federal Confidentiality of Alcohol and Drug Abuse Patient Records regulations: The Federal rules restrict any use of the information to criminally investigate or prosecute any alcohol or drug abuse patient.[facility] the event this information is protected by the Federal Confidentiality of Alcohol and Drug Abuse Patient Records regulations: The Federal rules restrict any use of the information to criminally investigate or prosecute any alcohol or drug abuse patient.[facility] the event this information is protected by the Federal Confidentiality of Alcohol and Drug Abuse Patient Records regulations: The Federal rules restrict any use of the information to criminally investigate or prosecute any alcohol or drug abuse patient.[facility] the event this information is protected by the Federal Confidentiality of Alcohol and Drug Abuse Patient Records regulations: The Federal rules restrict any use of the information to criminally investigate or prosecute any alcohol or drug abuse patient.[facility] the event this information is protected by the Federal Confidentiality of Alcohol and Drug Abuse Patient Records regulations: The Federal rules restrict any use of the information to criminally investigate or prosecute any alcohol or drug abuse patient.[facility] the event this information is protected by the Federal Confidentiality of Alcohol and Drug Abuse Patient Records regulations: The Federal rules restrict any use of the information to criminally investigate or prosecute any alcohol or drug abuse patient.[facility] the event this information is protected by the Federal Confidentiality of Alcohol and Drug Abuse Patient Records regulations: The Federal rules restrict any use of the information to criminally investigate or prosecute any alcohol or drug abuse patient.[facility] the event this information is protected by the Federal Confidentiality of Alcohol and Drug Abuse Patient Records regulations: The Federal rules restrict any use of the information to criminally investigate or prosecute any alcohol or drug abuse patient.[facility] the event this information is protected by the Federal Confidentiality of Alcohol and Drug Abuse Patient Records regulations: The Federal rules restrict any use of the information to criminally investigate or prosecute any alcohol or drug abuse patient.[facility] the event this information is protected by the Federal Confidentiality of Alcohol and Drug Abuse Patient Records regulations: The Federal rules restrict any use of the information to criminally investigate or prosecute any alcohol or drug abuse patient.[facility] HospitalIn the event this information is protected by the Federal Confidentiality of Alcohol and Drug Abuse Patient Records regulations: The Federal rules restrict any use of the information to criminally investigate or prosecute any alcohol or drug abuse patient.[facility] HospitalIn the event this information is protected by the Federal Confidentiality of Alcohol and Drug Abuse Patient Records regulations: The Federal rules restrict any use of the information to criminally investigate or prosecute any alcohol or drug abuse patient.[facility] HospitalIn the event this information is protected by the Federal Confidentiality of Alcohol and Drug Abuse Patient Records regulations: The Federal rules restrict any use of the information to criminally investigate or prosecute any alcohol or drug abuse patient.[facility] HospitalIn the event this information is protected by the Federal Confidentiality of Alcohol and Drug Abuse Patient Records regulations: The Federal rules restrict any use of the information to criminally investigate or prosecute any alcohol or drug abuse patient.[facility] HospitalIn the event this information is protected by the Federal Confidentiality of Alcohol and Drug Abuse Patient Records regulations: The Federal rules restrict any use of the information to criminally investigate or prosecute any alcohol or drug abuse patient.[facility] HospitalIn the event this information is protected by the Federal Confidentiality of Alcohol and Drug Abuse Patient Records regulations: The Federal rules restrict any use of the information to criminally investigate or prosecute any alcohol or drug abuse patient.[facility] HospitalIn the event this information is protected by the Federal Confidentiality of Alcohol and Drug Abuse Patient Records regulations: The Federal rules restrict any use of the information to criminally investigate or prosecute any alcohol or drug abuse patient.[facility] HospitalIn the event this information is protected by the Federal Confidentiality of Alcohol and Drug Abuse Patient Records regulations: The Federal rules restrict any use of the information to criminally investigate or prosecute any alcohol or drug abuse patient.[facility] HospitalIn the event this information is protected by the Federal Confidentiality of Alcohol and Drug Abuse Patient Records regulations: The Federal rules restrict any use of the information to criminally investigate or prosecute any alcohol or drug abuse patient.[facility] HospitalIn the event this information is protected by the Federal Confidentiality of Alcohol and Drug Abuse Patient Records regulations: The Federal rules restrict any use of the information to criminally investigate or prosecute any alcohol or drug abuse patient.[facility] HospitalIn the event this information is protected by the Federal Confidentiality of Alcohol and Drug Abuse Patient Records regulations: The Federal rules restrict any use of the information to criminally investigate or prosecute any alcohol or drug abuse patient.[facility] HospitalIn the event this information is protected by the Federal Confidentiality of Alcohol and Drug Abuse Patient Records regulations: The Federal rules restrict any use of the information to criminally investigate or prosecute any alcohol or drug abuse patient.[facility] HospitalIn the event this information is protected by the Federal Confidentiality of Alcohol and Drug Abuse Patient Records regulations: The Federal rules restrict any use of the information to criminally investigate or prosecute any alcohol or drug abuse patient.[facility] HospitalIn the event this information is protected by the Federal Confidentiality of Alcohol and Drug Abuse Patient Records regulations: The Federal rules restrict any use of the information to criminally investigate or prosecute any alcohol or drug abuse patient.[facility] HospitalIn the event this information is protected by the Federal Confidentiality of Alcohol and Drug Abuse Patient Records regulations: The Federal rules restrict any use of the information to criminally investigate or prosecute any alcohol or drug abuse patient.[facility] HospitalIn the event this information is protected by the Federal Confidentiality of Alcohol and Drug Abuse Patient Records regulations: The Federal rules restrict any use of the information to criminally investigate or prosecute any alcohol or drug abuse patient.[facility] HospitalIn the event this information is protected by the Federal Confidentiality of Alcohol and Drug Abuse Patient Records regulations: The Federal rules restrict any use of the information to criminally investigate or prosecute any alcohol or drug abuse patient.[facility] HospitalIn the event this information is protected by the Federal Confidentiality of Alcohol and Drug Abuse Patient Records regulations: The Federal rules restrict any use of the information to criminally investigate or prosecute any alcohol or drug abuse patient.[facility] HospitalIn the event this information is protected by the Federal Confidentiality of Alcohol and Drug Abuse Patient Records regulations: The Federal rules restrict any use of the information to criminally investigate or prosecute any alcohol or drug abuse patient.[facility] HospitalIn the event this information is protected by the Federal Confidentiality of Alcohol and Drug Abuse Patient Records regulations: The Federal rules restrict any use of the information to criminally investigate or prosecute any alcohol or drug abuse patient.[facility] HospitalIn the event this information is protected by the Federal Confidentiality of Alcohol and Drug Abuse Patient Records regulations: The Federal rules restrict any use of the information to criminally investigate or prosecute any alcohol or drug abuse patient.[facility] HospitalIn the event this information is protected by the Federal Confidentiality of Alcohol and Drug Abuse Patient Records regulations: The Federal rules restrict any use of the information to criminally investigate or prosecute any alcohol or drug abuse patient.[facility] HospitalIn the event this information is protected by the Federal Confidentiality of Alcohol and Drug Abuse Patient Records regulations: The Federal rules restrict any use of the information to criminally investigate or prosecute any alcohol or drug abuse patient.[facility] HospitalIn the event this information is protected by the Federal Confidentiality of Alcohol and Drug Abuse Patient Records regulations: The Federal rules restrict any use of the information to criminally investigate or prosecute any alcohol or drug abuse patient.[facility] HospitalIn the event this information is protected by the Federal Confidentiality of Alcohol and Drug Abuse Patient Records regulations: The Federal rules restrict any use of the information to criminally investigate or prosecute any alcohol or drug abuse patient.[facility] HospitalIn the event this information is protected by the Federal Confidentiality of Alcohol and Drug Abuse Patient Records regulations: The Federal rules restrict any use of the information to criminally investigate or prosecute any alcohol or drug abuse patient.[facility] HospitalIn the event this information is protected by the Federal Confidentiality of Alcohol and Drug Abuse Patient Records regulations: The Federal rules restrict any use of the information to criminally investigate or prosecute any alcohol or drug abuse patient.[facility] HospitalIn the event this information is protected by the Federal Confidentiality of Alcohol and Drug Abuse Patient Records regulations: The Federal rules restrict any use of the information to criminally investigate or prosecute any alcohol or drug abuse patient.[facility] HospitalIn the event this information is protected by the Federal Confidentiality of Alcohol and Drug Abuse Patient Records regulations: The Federal rules restrict any use of the information to criminally investigate or prosecute any alcohol or drug abuse patient.[facility] HospitalIn the event this information is protected by the Federal Confidentiality of Alcohol and Drug Abuse Patient Records regulations: The Federal rules restrict any use of the information to criminally investigate or prosecute any alcohol or drug abuse patient.[facility] HospitalIn the event this information is protected by the Federal Confidentiality of Alcohol and Drug Abuse Patient Records regulations: The Federal rules restrict any use of the information to criminally investigate or prosecute any alcohol or drug abuse patient.[facility] HospitalIn the event this information is protected by the Federal Confidentiality of Alcohol and Drug Abuse Patient Records regulations: The Federal rules restrict any use of the information to criminally investigate or prosecute any alcohol or drug abuse patient.[facility] HospitalIn the event this information is protected by the Federal Confidentiality of Alcohol and Drug Abuse Patient Records regulations: The Federal rules restrict any use of the information to criminally investigate or prosecute any alcohol or drug abuse patient.[facility] HospitalIn the event this information is protected by the Federal Confidentiality of Alcohol and Drug Abuse Patient Records regulations: The Federal rules restrict any use of the information to criminally investigate or prosecute any alcohol or drug abuse patient.[facility] HospitalIn the event this information is protected by the Federal Confidentiality of Alcohol and Drug Abuse Patient Records regulations: The Federal rules restrict any use of the information to criminally investigate or prosecute any alcohol or drug abuse patient.[facility] HospitalIn the event this information is protected by the Federal Confidentiality of Alcohol and Drug Abuse Patient Records regulations: The Federal rules restrict any use of the information to criminally investigate or prosecute any alcohol or drug abuse patient.[facility] HospitalIn the event this information is protected by the Federal Confidentiality of Alcohol and Drug Abuse Patient Records regulations: The Federal rules restrict any use of the information to criminally investigate or prosecute any alcohol or drug abuse patient.[facility] HospitalIn the event this information is protected by the Federal Confidentiality of Alcohol and Drug Abuse Patient Records regulations: The Federal rules restrict any use of the information to criminally investigate or prosecute any alcohol or drug abuse patient.[facility] HospitalIn the event this information is protected by the Federal Confidentiality of Alcohol and Drug Abuse Patient Records regulations: The Federal rules restrict any use of the information to criminally investigate or prosecute any alcohol or drug abuse patient.[facility] HospitalIn the event this information is protected by the Federal Confidentiality of Alcohol and Drug Abuse Patient Records regulations: The Federal rules restrict any use of the information to criminally investigate or prosecute any alcohol or drug abuse patient.[facility] HospitalIn the event this information is protected by the Federal Confidentiality of Alcohol and Drug Abuse Patient Records regulations: The Federal rules restrict any use of the information to criminally investigate or prosecute any alcohol or drug abuse patient.[facility] HospitalIn the event this information is protected by the Federal Confidentiality of Alcohol and Drug Abuse Patient Records regulations: The Federal rules restrict any use of the information to criminally investigate or prosecute any alcohol or drug abuse patient.[facility] HospitalIn the event this information is protected by the Federal Confidentiality of Alcohol and Drug Abuse Patient Records regulations: The Federal rules restrict any use of the information to criminally investigate or prosecute any alcohol or drug abuse patient.[facility] HospitalIn the event this information is protected by the Federal Confidentiality of Alcohol and Drug Abuse Patient Records regulations: The Federal rules restrict any use of the information to criminally investigate or prosecute any alcohol or drug abuse patient.[facility] HospitalIn the event this information is protected by the Federal Confidentiality of Alcohol and Drug Abuse Patient Records regulations: The Federal rules restrict any use of the information to criminally investigate or prosecute any alcohol or drug abuse patient.[facility] HospitalIn the event this information is protected by the Federal Confidentiality of Alcohol and Drug Abuse Patient Records regulations: The Federal rules restrict any use of the information to criminally investigate or prosecute any alcohol or drug abuse patient.[facility] HospitalIn the event this information is protected by the Federal Confidentiality of Alcohol and Drug Abuse Patient Records regulations: The Federal rules restrict any use of the information to criminally investigate or prosecute any alcohol or drug abuse patient.[facility] HospitalIn the event this information is protected by the Federal Confidentiality of Alcohol and Drug Abuse Patient Records regulations: The Federal rules restrict any use of the information to criminally investigate or prosecute any alcohol or drug abuse patient.[facility] HospitalIn the event this information is protected by the Federal Confidentiality of Alcohol and Drug Abuse Patient Records regulations: The Federal rules restrict any use of the information to criminally investigate or prosecute any alcohol or drug abuse patient.[facility] HospitalIn the event this information is protected by the Federal Confidentiality of Alcohol and Drug Abuse Patient Records regulations: The Federal rules restrict any use of the information to criminally investigate or prosecute any alcohol or drug abuse patient.[facility] HospitalIn the event this information is protected by the Federal Confidentiality of Alcohol and Drug Abuse Patient Records regulations: The Federal rules restrict any use of the information to criminally investigate or prosecute any alcohol or drug abuse patient.[facility] HospitalIn the event this information is protected by the Federal Confidentiality of Alcohol and Drug Abuse Patient Records regulations: The Federal rules restrict any use of the information to criminally investigate or prosecute any alcohol or drug abuse patient.[facility] HospitalIn the event this information is protected by the Federal Confidentiality of Alcohol and Drug Abuse Patient Records regulations: The Federal rules restrict any use of the information to criminally investigate or prosecute any alcohol or drug abuse patient.[facility] HospitalIn the event this information is protected by the Federal Confidentiality of Alcohol and Drug Abuse Patient Records regulations: The Federal rules restrict any use of the information to criminally investigate or prosecute any alcohol or drug abuse patient.[facility] HospitalIn the event this information is protected by the Federal Confidentiality of Alcohol and Drug Abuse Patient Records regulations: The Federal rules restrict any use of the information to criminally investigate or prosecute any alcohol or drug abuse patient.[facility] HospitalIn the event this information is protected by the Federal Confidentiality of Alcohol and Drug Abuse Patient Records regulations: The Federal rules restrict any use of the information to criminally investigate or prosecute any alcohol or drug abuse patient.[facility] HospitalIn the event this information is protected by the Federal Confidentiality of Alcohol and Drug Abuse Patient Records regulations: The Federal rules restrict any use of the information to criminally investigate or prosecute any alcohol or drug abuse patient.[facility] HospitalIn the event this information is protected by the Federal Confidentiality of Alcohol and Drug Abuse Patient Records regulations: The Federal rules restrict any use of the information to criminally investigate or prosecute any alcohol or drug abuse patient.[facility] HospitalIn the event this information is protected by the Federal Confidentiality of Alcohol and Drug Abuse Patient Records regulations: The Federal rules restrict any use of the information to criminally investigate or prosecute any alcohol or drug abuse patient.[facility] Reason for Visit (unrecogniz ed section and content) Reason Comments Follow Up 3 months Specialty Diagnoses / Procedures Referred By Marcy boudreaux Referred To Contact FAMILY MEDICINE Diagnoses 3 mo OV Procedures 3Mo OV Phuc Martines, DO [address] [place] [address] [facility] [address] [place] [address] Referral ID Status Reason Start Date Expiration Date Visits Requested Visits Authorized [id number] Pending Review OON/Self Pay Override 12/01/2021 03/01/2022 1 1 Reason Comments Established Patient Specialty Diagnoses / Procedures Referred By Contac t Referred To [facility] [place] Diagnoses Breathing Issues Procedures Consult to Pulmonary Self [facility] [place] [address] [place] [address] Referral ID Status Reason Start Date Expiration Date Visits Requested Visits Authorized [id number] Outside PCP OON/Self Pay Override 02/05/2022 05/06/2022 1 1 Reason Onset Date Comments Refill Request 03/07/2022 Reason Comments Spirometry Specialty Diagnoses / Procedures Referred By Contac t Referred To [facility] Diagnoses Chronic obstructive pulmonary disease, unspecified COPD type (HCC) Procedures SPIROMETRY BASELINE ONLY SPMTRY W/VC EXPIRATORY MARTIN W/WO MXML VOL VNTJ Hodan Christine PA-C [address] [place] [address] [facility] [place] [address] [place] [address] Referral ID Status Reason Start Date Expiration Date V isits Requested Visits Authorized [id number] Closed Auto-Generate d Referral OON/Self Pay Override 02/09/2022 03/11/2023 1 1 Specialty Diagnoses / Procedures Referred By Contac t Referred To [facility] [place] Diagnoses Chronic obstructive pulmonary disease, unspecified COPD type (HCC) Procedures OXIMETRY WITH AMBULATION NONINVASIVE EAR/PULSE OXIMETRY MULTIPLE DETER Hodan Christine PA-C [address] [place] [address] [address] Referral ID Status Reason Start Date Expiration Date V isits Requested Visits Authorized [id number] Closed Auto-Generate d Referral OON/Self Pay Override 02/09/2022 03/11/2023 1 1 Reason Comments Established Patient 6 week follow up Specialty Diagnoses / Procedures Referred By Contac t Referred To Contact PULMONARY MEDICINE Diagnoses office visit Procedures office visit Hodan Christine PA-C [address] [place] [address] [facility] [address] [place] [address] Referral ID Status Reason Start Date Expiration Date Visits Requested Visits Authorized [id number] Pending Review OON/Self Pay Override 02/09/2022 05/10/2022 1 1 Reason Comments Orders Reason Onset Date Comments F/U 3 Month Immunizations 08/01/2022 Flu vaccination Specialty Diagnoses / Procedures Referred By Contac t Referred To Contact INTERNAL MEDICINE Diagnoses 3 month follow up Procedures 4c est Phuc Martines L, DO [address] [place] [address] [facility] [address] [place] [address] Referral ID Status Reason Start Date Expiration Date Visits Requested Visits Authorized [id number] Pending Review OON/Self Pay Override 05/01/2022 08/26/2022 [...] EAR/PULSE OXIMETRY MULTIPLE DETER Hodan Christine PA-C [address] [place] [address] [facility] [place] [address] [place] [address] Referral ID Status Reason Start Date Expiration Date V isits Requested Visits Authorized [id number] Closed Auto-Generate d Referral 05/30/2023 06/28/2024 1 [...] W/O CNTRST Phuc Martines L, DO [address] [place] [address] [facility] [place] [address] Referral ID Status Reason Start Date Expiration Date V isits Requested Visits Authorized [id number] Closed Auto-Generate d Referral 08/01/2022 08/31/2023 1 1 Reason Comments Radiology US Specialty Diagnoses / Procedures Referred By Contac t Referred To Contact US IMAGING Diagnoses Cyst of spleen Procedures US ABD SPLEEN US ABDOMINAL REAL TIME W/IMAGE LIMITED Pratibha King, RESIDENCE LIFE COORDINATOR.FILTERS ASSEMBLER [address] [place] [address] [facility] [place] [address] Referral ID Status Reason Start Date Expiration Date Visits Requested Visits Authorized [id number] Pending Review Auto-Generat ed Referral 08/30/2022 09/29/2023 1 1 Reason Comments Forms Reason Comments Radiology CT Specialty Diagnoses / Procedures Referred By Contac t Referred To Contact CT IMAGING Diagnoses Former cigarette smoker Procedures CT LUNG SCREEN WO IVCON COMPUTED TOMOGRAPHY THORAX LW DOSE LNG CA SCR Suleiman- Maricruz Camp, RESIDENCE LIFE COORDINATOR.FILTERS ASSEMBLER [address] [place] [id number] [facility] [place] [address] Referral ID Status Reason Start Date Expiration Date V isits Requested Visits Authorized [id number] Closed Auto-Generate d Referral 09/17/2023 10/16/2024 1 [...] DOSE LNG CA SCR C- Maricruz Camp, RESIDENCE LIFE COORDINATOR.FILTERS ASSEMBLER [address] [place] [id number] [facility] [place] [address] Referral ID Status Reason Start Date Expiration Date V isits Requested Visits Authorized [id number] Closed Auto-Generate d Referral 10/11/2023 11/09/2024 1 [...] DIAGNOSTIC COMPUTED TOMOGRAPHY THORAX W/O Maricruz Howard, RESIDENCE LIFE COORDINATOR.FILTERS ASSEMBLER [address] [place] [address] Phone: tel: fax: [facility] [place] [address] Referral ID Status Reason Start Date Expiration Date V isits Requested Visits Authorized [id number] Closed Auto-Generate d Referral 12/26/2024 11/18/2025 1 1 Specialty Diagnoses / Procedures Referred By Contac t Referred To Contact CT IMAGING Diagnoses Lung nodules Procedures CT LUNG FOLLOWUP WO IVCON DIAGNOSTIC COMPUTED TOMOGRAPHY THORAX W/O CNTRSMaricruz Rangel, RESIDENCE LIFE COORDINATOR.FILTERS ASSEMBLER [address] [place] [address] Phone: tel: fax: [place] [address] Referral ID Status Reason Start Date Expiration Date V isits Requested Visits Authorized [id number] Closed Auto-Generate d Referral 12/26/2024 11/18/2025 1 1 Reason Comments Hospital F/U [facility] COPD Reason Comments Hospital F/U Reason [...] Cardiology Diagnoses Typical atrial flutter (HCC) Procedures SD OFFICE/OP CONSLTJ NEW/EST PT MOD MDM 40 MINUTES Reza Elena MD [address] [facility] [address] [place] [address] Phone: tel:[phone] fax:[phone] Jaden Newton MD [address] [facility] [address] [place] [address] Phone: tel:[phone] fax:[phone] Referral ID Status Reason Start Date Expiration Date Visits Re quested Visits Authorized [id number] Closed 04/06/2025 04/06/2026 1 1 Reason Onset Date Comments Refill Request 06/14/2025 Reason Comments Orders NIV Care Teams (unrecognized sec tion and content) Airway Controller Relationship Specialty Start Date End Date Phuc Martines DO [address] [place] [address] PCP - General Family Practice 11/09/15 Airway Controller Relationship Specialty Start Date End Date Phuc Martines DO [address] [place] [address] PCP - General Family Practice 11/09/15 Airway Controller Relationship Specialty Start Date End Date Phuc Martines DO [address] [place] [address] PCP - General Family Practice 11/09/15 Airway Controller Relationship Specialty Start Date End Date Phuc Matrines DO [address] [place] [address] PCP - General Family Practice 11/09/15 Airway Controller Relationship Specialty Start Date End Date Martines, Phuc L, DO [address] [place] [address] PCP - General Family Practice 11/09/15 Airway Controller Relationship Specialty Start Date End Date Phuc Martines, DO [address] [place] [address] PCP - General Family Practice 11/09/15 Airway Controller Relationship Specialty Start Date End Date Phuc Martines, DO [address] [place] [address] PCP - General Family Practice 11/09/15 Airway Controller Relationship Specialty Start Date End Date Phuc Martines, DO [address] [place] [address] PCP - General Family Practice 11/09/15 Airway Controller Relationship Specialty Start Date End Date Phuc Martines, DO [address] [place] [address] PCP - General Family Medicine 11/09/15 Airway Controller Relationship Specialty Start Date End Date Phuc Martines, DO [address] [place] [address] PCP - General Family Medicine 11/09/15 Airway Controller Relationship Specialty Start Date End Date Phuc Martines, DO [address] [place] [address] PCP - General Family Medicine 11/09/15 Airway Controller Relationship Specialty Start Date End Date Phuc Martines, DO [address] [place] [address] PCP - General Family Medicine 11/09/15 Airway Controller Relationship Specialty Start Date End Date Phuc Martines, DO [address] [place] [address] PCP - General Family Medicine 11/09/15 Airway Controller Relationship Specialty Start Date End Date Phuc Martines, DO [address] [place] [address] PCP - General Family Medicine 11/09/15 Airway Controller Relationship Specialty Start Date End Date Phuc Martines, DO [address] [place] [address] PCP - General Family Medicine 11/09/15 Airway Controller Relationship Specialty Start Date End Date Phuc Martines, DO [address] [place] [address] PCP - General Family Medicine 11/09/15 Airway Controller Relationship Specialty Start Date End Date Phuc Martines, DO [address] [place] [address] PCP - General Family Medicine 11/09/15 Airway Controller Relationship Specialty Start Date End Date Phuc Martines, DO [address] [place] [address] PCP - General Family Medicine 11/09/15 Airway Controller Relationship Specialty Start Date End Date Phuc Martines DO [address] [place] [address] PCP - General Family Medicine 11/09/15 Airway Controller Relationship Specialty Start Date End Date Phuc Martines DO [address] [place] [address] PCP - General Family Medicine 11/09/15 Airway Controller Relationship Specialty Start Date End Date Phuc Martines DO [address] [place] [address] PCP - General Family Medicine 11/09/15 Airway Controller Relationship Specialty Start Date End Date Phuc Martines DO [address] [place] [address] PCP - General Family Medicine 11/09/15 Airway Controller Relationship Specialty Start Date End Date Phuc Martines DO [address] [facility] [place] [address] PCP - General Family Medicine 11/09/15 Airway Controller Relationship Specialty Start Date End Date Phuc Martines DO [address] [facility] [place] [address] PCP - General Family Medicine 11/09/15 Airway Controller Relationship Specialty Start Date End Date Phuc Martines DO [address] [facility] [place] [address] PCP - General Family Medicine 11/09/15 Airway Controller Relationship Specialty Start Date End Date Phuc Martines DO [address] [facility] [place] [address] PCP - General Family Medicine 11/09/15 Airway Controller Relationship Specialty Start Date End Date Phuc Martines DO [address] [facility] [place] [address] PCP - General Family Medicine 11/09/15 Airway Controller Relationship Specialty Start Date End Date Phuc Martines DO [address] [facility] [place] [address] PCP - General Family Medicine 11/09/15 Airway Controller Relationship Specialty Start Date End Date Phuc Martines DO [address] [facility] [place] [address] PCP - General Family Medicine 11/09/15 Airway Controller Relationship Specialty Start Date End Date Phuc Martines DO [address] [facility] [place] [address] PCP - General Family Medicine 11/09/15 Airway Controller Relationship Specialty Start Date End Date Phuc Martines DO [address] [facility] [place] [address] PCP - General Family Medicine 11/09/15 Hodan Christine PA-C [address] [place] [address] Pulmonary and Critical Care Medicine 10/11/23 Airway Controller Relationship Specialty Start Date End Date Phuc Martines DO [address] [facility] [place] [address] PCP - General Family Medicine 11/09/15 Hodan Christine, PA-C [address] [address] Pulmonary and Critical Care Medicine 10/11/23 Airway Controller Relationship Specialty Start Date End Date Phuc Martines, [address] [facility] [place] [address] PCP - General Family Medicine 11/09/15 Hodan Christine, PA-C [address] [place] [address] Pulmonary and Critical Care Medicine 10/11/23 Airway Controller Relationship Specialty Start Date End Date Phuc Martines DO [address] [facility] [place] [address] PCP - General Family Medicine 11/09/15 Hodan Christine, PA-C [address] [place] [address] Pulmonary and Critical Care Medicine 10/11/23 Airway Controller Relationship Specialty Start Date End Date Phuc Martines DO [address] [facility] [place] [address] PCP - General Family Medicine 11/09/15 Hodan Christine PA-C [address] [place] [address] Pulmonary and Critical Care Medicine 10/11/23 Airway Controller Relationship Specialty Start Date End Date Phuc Martines DO [address] [facility] [place] [address] PCP - General Family Medicine 11/09/15 Hodan Christine PA-C [address] [place] [address] Pulmonary and Critical Care Medicine 10/11/23 Airway Controller Relationship Specialty Start Date End Date Phuc Martines DO [address] [facility] [place] [address] PCP - General Family Medicine 11/09/15 Hodan Christine, PA-C [address] [place] [address] Pulmonary and Critical Care Medicine 10/11/23 Airway Controller Relationship Specialty Start Date End Date Phuc Martines DO [address] [facility] [place] [address] PCP - General Family Medicine 11/09/15 Airway Controller Relationship Specialty Start Date End Date Phuc Martines DO [address] [facility] [place] [address] PCP - General Family Medicine 11/09/15 Airway Controller Relationship Specialty Start Date End Date Phuc Martines DO [address] [facility] [place] [address] PCP - General Family Medicine 11/09/15 Hodan Christine PA-C [address] [place] [address] Pulmonary and Critical Care Medicine 10/11/23 Airway Controller Relationship Specialty Start Date End Date Phuc Martines, [address] [facility] [place] [address] PCP - General Family Medicine 11/09/15 Hodan Christine, PA-C [address] [place] [address] Pulmonary and Critical Care Medicine 10/11/23 Vicky Duong, JAKI.FILTERS ASSEMBLER [address] [facility] [place] [address] Prototype Engineer Manager Family Medicine 10/04/24 Pratibha King APRN.FILTERS ASSEMBLER [address] [facility] [place] [address] Prototype Engineer Manager Family Medicine 10/04/24 Airway Controller Relationship Specialty Start Date End Date Phuc Martines DO [address] [facility] [place] [address] PCP - General Family Medicine 11/09/15 Hodan Christine, PA-C [address] [place] [address] Pulmonary and Critical Care Medicine 10/11/23 Vicky Duong, RESIDENCE LIFE COORDINATOR.FILTERS ASSEMBLER [address] [place] [address] [facility] 10/04/24 [facility], RESIDENCE LIFE COORDINATOR.FILTERS ASSEMBLER [address] [place] [address] [facility] 10/04/24 Airway Controller Relationship Specialty Start Date End Date Phuc Martines DO [address] [place] [address] PCP - General Family Medicine 11/09/15 Hodan Christine PA-C [address] [place] [address] Pulmonary and Critical Care Medicine 10/11/23 Vicky Duong, RESIDENCE LIFE COORDINATOR.FILTERS ASSEMBLER [address] [place] [address] [facility] 10/04/24 [facility] Center[facility], RESIDENCE LIFE COORDINATOR.FILTERS ASSEMBLER [address] [place] [address] [facility] 10/04/24 Airway Controller Relationship Specialty Start Date End Date Phuc Martines DO [address] [place] [address] PCP - General Family Medicine 11/09/15 Hodan Christine PA-C [address] [place] [address] Pulmonary and Critical Care Medicine 10/11/23 Vicky Duong, JAKI.FILTERS ASSEMBLER [address] [place] [address] [facility] 10/04/24 FernandoPratibha, RESIDENCE LIFE COORDINATOR.FILTERS ASSEMBLER [address] [place] [address] [facility] 10/04/24 Airway Controller Relationship Specialty Start Date End Date Phuc Martines DO [address] [place] [address] PCP - General Family Medicine 11/09/15 Hodan Christine PA-C [address] [place] [address] Pulmonary and Critical Care Medicine 10/11/23 Vicky Duong, RESIDENCE LIFE COORDINATOR.FILTERS ASSEMBLER [address] [place] [address] [facility] 10/04/24 FernandoPratibha, RESIDENCE LIFE COORDINATOR.FILTERS ASSEMBLER [address] [place] [address] [facility] 10/04/24 Airway Controller Relationship Specialty Start Date End Date Phuc Martines DO [address] [place] [address] PCP - General Family Medicine 11/09/15 Hodan Christine PA-C [address] [place] [address] Pulmonary and Critical Care Medicine 10/11/23 Vicky Duong, RESIDENCE LIFE COORDINATOR.FILTERS ASSEMBLER [address] [place] [address] [facility] 10/04/24 FernandoPratibha, RESIDENCE LIFE COORDINATOR.FILTERS ASSEMBLER [address] [place] [address] [facility] 10/04/24 Airway Controller Relationship Specialty Start Date End Date Phuc Martines DO [address] [place] [address] PCP - General Family Medicine 11/09/15 Hodan Christine PA-C [address] [place] [address] Pulmonary and Critical Care Medicine 10/11/23 Vicky Duong, RESIDENCE LIFE COORDINATOR.FILTERS ASSEMBLER [address] [place] [address] [facility] 10/04/24 FernandoPratibha, RESIDENCE LIFE COORDINATOR.FILTERS ASSEMBLER [address] [place] [address] [facility] 10/04/24 Airway Controller Relationship Specialty Start Date End Date Phuc Martines DO [address] [place] [address] PCP - General Family Medicine 11/09/15 Hodan Christine PA-C [address] [place] [address] Pulmonary and Critical Care Medicine 10/11/23 Vicky Duong, RESIDENCE LIFE COORDINATOR.FILTERS ASSEMBLER [address] [place] [address] [facility] 10/04/24 FernandoPratibha, RESIDENCE LIFE COORDINATOR.FILTERS ASSEMBLER [address] [place] [address] [facility] 10/04/24 Airway Controller Relationship Specialty Start Date End Date Phuc Martines DO [address] [place] [address] PCP - General Family Medicine 11/09/15 Hodan Christine PA-C [address] [place] [address] Pulmonary and Critical Care Medicine 10/11/23 Vicky Duong, RESIDENCE LIFE COORDINATOR.FILTERS ASSEMBLER [address] [place] [address] [facility] 10/04/24 FernandoPratibha, RESIDENCE LIFE COORDINATOR.FILTERS ASSEMBLER [address] [place] [address] [facility] 10/04/24 Airway Controller Relationship Specialty Start Date End Date Phuc Martines DO [address] [place] [address] PCP - General Family Medicine 11/09/15 Hodan Christine PA-C [address] [place] [address] Pulmonary and Critical Care Medicine 10/11/23 [facility], RESIDENCE LIFE COORDINATOR.FILTERS ASSEMBLER [address] [facility] [place] [address] [facility] 10/04/24 Airway Controller Relationship Specialty Start Date End Date Phuc Martines DO [address] [facility] [place] [address] PCP - General Family Medicine 11/09/15 Hodan Christine, PA-C [address] [place] [facility] [address] Pulmonary and Critical Care Medicine 10/11/23 [facility] CenterGloriaah, RESIDENCE LIFE COORDINATOR.FILTERS ASSEMBLER [address] [facility] [place] [address] [facility] 10/04/24 Airway Controller Relationship Specialty Start Date End Date Phuc Martines DO [address] [facility] [place] [address] PCP - General Family Medicine 11/09/15 Hodan Christine, PA-C [address] [place] [facility] [place] [address] Pulmonary and Critical Care Medicine 10/11/23 [facility], RESIDENCE LIFE COORDINATOR.FILTERS ASSEMBLER [address] [facility] [place] [address] [facility] 10/04/24 Airway Controller Relationship Specialty Start Date End Date Phuc Martines DO [address] [facility] [place] [address] PCP - General Family Medicine 11/09/15 Hodan Christine PA-C [address] [place] [address] Pulmonary and Critical Care Medicine 10/11/23 Pratibha King RESIDENCE LIFE COORDINATOROliviaFILTERS ASSEMBLER [address] [facility] [place], [place] [address] Prototype Engineer Manager Family Medicine 10/04/24 Team Status: Active Member [...] Provider Active Start : February 23, 2025 Airway Controller Relationship Specialty Start Date End Date Phuc Martines DO [address] [place] [address] PCP - General Family Medicine 11/09/15 Hodan Christine PA-C [address] [place] [address] Pulmonary and Critical Care Medicine 10/11/23 Pratibha King, JAKI.FILTERS ASSEMBLER [address] [place] [address] Prototype Engineer [facility] 10/04/24 Airway Controller Relationship Specialty Start Date End Date Phuc Martines DO [address] [place] [address] PCP - General Family Medicine 11/09/15 Hodan Christine, JACKELINEC [address] [place] [address] Pulmonary and Critical Care Medicine 10/11/23 Pratibha King, RESIDENCE LIFE COORDINATOR.FILTERS ASSEMBLER [address] [place] [address] [facility] 10/04/24 Airway Controller Relationship Specialty Start Date End Date Phuc Martines DO [address] [place] [address] PCP - General Family Medicine 11/09/15 Hodan Christine PA-C [address] [place] [address] Pulmonary and Critical Care Medicine 10/11/23 Pratibha King, RESIDENCE LIFE COORDINATOR.FILTERS ASSEMBLER [address] [place] [address] [facility] 10/04/24 Airway Controller Relationship Specialty Start Date End Date Phuc Matrines DO [address] [place] [address] PCP - General [facility] Medicine 11/09/15 Hodan Christine PA-C [address] [place] [address] Pulmonary and Critical Care Medicine 10/11/23 [facility] CenterPratibha, RESIDENCE LIFE COORDINATOR.FILTERS ASSEMBLER [address] [place] [address] Prototype Engineer ManagerSouth[facility] Hospital 10/04/24 Airway Controller Relationship Specialty Start Date End Date Phuc Martines DO [address] [facility] [place] [address] PCP - [facility] 11/09/15 Hodan Christine PA-C [address] [place] [address] Pulmonary and Critical Care Medicine 10/11/23 [facility] CenterPratibha, RESIDENCE LIFE COORDINATOR.FILTERS ASSEMBLER [address] [place] [address] [facility] 10/04/24 Team Status: Inactive Member Role Status Dates Dr. Phuc Martines DO Primary Care Provider Active Start: March 30, 2025 End: March 30, 2025 Dr. Phuc Martines DO Referring Provider Active Start: March 30, 2025 End: March 30, 2025 Dr. Reza Elena MD Attending Provider Active Start: March 30, 2025 End: March 30, 2025 Airway Controller Relationship Specialty Start Date End Date Phuc Martines DO [address] [facility] [place] [address] PCP - [facility] 11/09/15 Hodan Christine PA-C [address] [place] [address] Pulmonary and Critical Care Medicine 10/11/23 Pratibha King, RESIDENCE LIFE COORDINATOR.FILTERS ASSEMBLER [address] [place] [address] [facility] 10/04/24 Tyra Carson, RESIDENCE LIFE COORDINATOR.FILTERS ASSEMBLER [address] [place] [address] [facility] 04/12/25 Airway Controller Relationship Specialty Start Date End Date Phuc Martines DO [address] [place] [address] PCP - General Family Medicine 11/09/15 Hodan Christine PA-C [address] [place] [address] Pulmonary and Critical Care Medicine 10/11/23 Pratibha King, RESIDENCE LIFE COORDINATOR.FILTERS ASSEMBLER [address] [place] [address] [facility] 10/04/24 Tyra Carson, RESIDENCE LIFE COORDINATOR.FILTERS ASSEMBLER [address] [place] [address] [facility] 04/12/25 Airway Controller Relationship Specialty Start Date End Date Phuc Martines DO [address] [place] [address] PCP - General Family Medicine 11/09/15 Hodan Christine PA-C [address] [place], [place] [address] Pulmonary and Critical Care Medicine 10/11/23 Pratibha King, RESIDENCE LIFE COORDINATOR.FILTERS ASSEMBLER [address] [place] [address] Prototype Engineer ManagerSouth[facility] 10/04/24 Tyra Carson, RESIDENCE LIFE COORDINATOR.FILTERS ASSEMBLER [address] [place] [address] Prototype Engineer ManagerSouth[facility] Hospital 04/12/25 Team Status: Active Member Role/Relationship [...] Active Start: May 07, 2025 Kim Price BOAT RENTAL CLERK, BOAT RENTAL CLERK-C Attending Provider Active Start: May 07, 2025 Kim Price BOAT RENTAL CLERK, BOAT RENTAL CLERK-C Referring Provider Active Start: May 07, 2025 Team Status: Inactive Member Role/Relationship Status Dates Dr. Phuc Martines DO Primary Care Provider Active Start: May 07, 2025 End: May 07, 2025 Dr. Phuc Martines DO Referring Provider Active Start: May 07, 2025 End: May 07, 2025 Kim Price BOAT RENTAL CLERK, BOAT RENTAL CLERK-C Attending Provider Active Start: May 07, 2025 End: May 07, 2025 Airway Controller Relationship Specialty Start Date End Date Phuc Martines DO [address] [place] [address] PCP - General Family Medicine 11/09/15 Hodan Christine PA-C [address] [place], [place] [address] Pulmonary and Critical Care Medicine 10/11/23 Pratibha King, JAKI.FILTERS ASSEMBLER [address] [place], [place] [address] [facility] 10/04/24 Tyra Carson, RESIDENCE LIFE COORDINATOR.FILTERS ASSEMBLER [address] [place], [place] [address] [facility] 04/12/25 Airway Controller Relationship Specialty Start Date End Date Phuc Martines DO [address] [place], [place] [address] PCP - General Family Medicine 11/09/15 Hodan Christine PA-C [address] [place], [place] [address] Pulmonary and Critical Care Medicine 10/11/23 Pratibha King, RESIDENCE LIFE COORDINATOR.FILTERS ASSEMBLER [address] [place], [place] [address] [facility] 10/04/24 Tyra Carson, RESIDENCE LIFE COORDINATOR.FILTERS ASSEMBLER [address] [place], [place] [address] [facility] 04/12/25 Team Status: Inactive Member Role/Relationship Status Dates Dr. Phuc Martines DO Primary Care Provider Active Start: May 07, 2025 End: May 07, 2025 Kim Price BOAT RENTAL CLERK, BOAT RENTAL CLERK-C Attending Provider Active Start: May 07, 2025 End: May 07, 2025 Kim Price BOAT RENTAL CLERK, BOAT RENTAL CLERK-C Referring Provider Active Start: May 07, 2025 [...] Attending Provider Active Start: May 13, 2025 Airway Controller Relationship Specialty Start Date End Date Phuc Martines [address] [place] [address] PCP - General Family Medicine 04/06/25 Team [...] June 08, 2025 End: June 08, 2025 Airway Controller Relationship Specialty Start Date End Date Phuc Martines DO [address] [place] [address] PCP - General Family Medicine 11/09/15 Hodan Christine PAKkieC [address] [address] Pulmonary and Critical Care Medicine 10/11/23 FernandoPratibha, RESIDENCE LIFE COORDINATOR.FILTERS ASSEMBLER [address] [place] [address] [facility] 10/04/24 Tyra Carson, RESIDENCE LIFE COORDINATOR.FILTERS ASSEMBLER [address] [place] [address] [facility] 04/12/25 Airway Controller Relationship Specialty Start Date End Date Phuc Martines DO [address] [place] [address] PCP - General Family Medicine 11/09/15 Hodan Christine PA-C [address] [place] [address] Pulmonary and Critical Care Medicine 10/11/23 FernandoPratibha, RESIDENCE LIFE COORDINATOR.FILTERS ASSEMBLER [address] [place] [address] [facility] 10/04/24 Tyra Carson, RESIDENCE LIFE COORDINATOR.FILTERS ASSEMBLER [address] [place] [address] [facility] 04/12/25 Airway Controller Relationship Specialty Start Date End Date Phuc Martines DO [address] [facility] [place] [address] PCP - General Family Medicine 11/09/15 Hodan Christine PA-C [address] [place] [facility] [place] [place] [address] Pulmonary and Critical Care Medicine 10/11/23 Pratibha King APRN.FILTERS ASSEMBLER [address] [place], [place] [address] [facility] 10/04/24 Tyra Carson, JAKI.FILTERS ASSEMBLER [address] [place], [place] [address] [facility] 04/12/25 Airway Controller Relationship Specialty Start Date End Date Phuc Martines DO [address] [place] [address] PCP - General Family Medicine 11/09/15 Hodan Christine PAKikeC [address] [place] [address] Pulmonary and Critical Care Medicine 10/11/23 Pratibha King, JAKI.FILTERS ASSEMBLER [address] [place] [address] [facility] 10/04/24 Tyra Carson, RESIDENCE LIFE COORDINATOR.FILTERS ASSEMBLER [address] [place] [address] [facility] 04/12/25 Anne Marie Gonzalez MA Network Navigator [...] 2025 End: May 07, 2025 Kim Price BOAT RENTAL CLERK, BOAT RENTAL CLERK-C Attending Provider Active Start: May 07, 2025 End: May 07, 2025 Kim Price BOAT RENTAL CLERK, BOAT RENTAL CLERK-C Referring Provider Active Start: May 07, 2025 End: May 07, 2025 Team Status: Inactive Member Role/Relationship Status Dates Dr. Phuc Martines DO Primary Care Provider Active Start: May 07, 2025 End: May 07, 2025 Dr. Phuc Martines DO Referring Provider Active Start: May 07, 2025 End: May 07, 2025 Kim Price BOAT RENTAL CLERK, BOAT RENTAL CLERK-C Attending Provider Active Start: May 07, 2025 [...] Active Start: May 16, 2025 Dr. Nicko Vlalejo DO Other Provider Active Start: May 16, [...] Provider Active Start: June 24, 2025 Dr. eRza Elena MD Referring Provider Active Start: June [...] Status: Active Member Role/Relationship Status Dates Dr. Phcu Martines DO Primary care physician Active Start: [...] physician Active Start: April 26, 2025 Dr. Goerge Polanco MD Nurse Practitioner Active Start: April [...] Inactive Member Role/Relationship Status Dates Dr. Phuc Martiens DO Primary care physician Active Start: May 07, 2025 End: May 07, 2025 Kim Price BOAT RENTAL CLERK, BOAT RENTAL CLERK-C Attending physician Active Start: May 07, 2025 End: May 07, 2025 Kim Price BOAT RENTAL CLERK, BOAT RENTAL CLERK-C Referring Provider Active Start: May 07, 2025 End: May 07, 2025 Team Status: Inactive Member Role/Relationship Status Dates Dr. Phuc Martines DO Primary care physician Active Start: May 07, 2025 End: May 07, 2025 Dr. Phuc Martines DO Referring Provider Active Start: May 07, 2025 End: May 07, 2025 Kim Price BOAT RENTAL CLERK, BOAT RENTAL CLERK-C Attending physician Active Start: May 07, 2025 [...] BE BASED ON THE PRIMARY CLINICAL RECORDS. [employer] provides no warranty or guarantee of the accuracy or completeness of information in this document.
--- NOTE | 2025-08-19 10:04 | STRESSREP_ITS ---
Stress Test Report Date: 08/19/2025 Procedure: Pharmacologic stress nuclear imaging study Indications: Atrial fibrillation Consent: Per the patient Procedure: The patient underwent pharmacologic (Regadenoson 0.4mg ) evaluation with a peak heart rate of 75 beats per minute (49%predicted maximal heart rate) and a peak blood pressure of 132/74 mmHg. The baseline ECG demonstrated normal sinus rhythm. The peak pharmacologic ECG did not show any ischemic changes. There were no cardiac dysrhythmias pretest, during pharmacologic infusion, or recovery. There was no complaint of chest discomfort during pharmacologic infusion or recovery. The patient was injected with 14.5 millicuries of technetium 99m Cardiolite and subsequently rest SPECT Cardiolite nuclear imaging was obtained in the horizontal long, vertical long, and short axis views. The patient underwent pharmacologic (Regadenoson) evaluation. The patient was injected with 44.8 aric curies of technetium 99m Cardiolite and subsequently stress SPECT Cardiolite nuclear imaging was obtained in the horizontal long, vertical long, and short axis views. A gated Cardiolite study at peak stress was obtained. The examination was stopped secondary to completion of protocol. Rest and stress SPECT Cardiolite nuclear imaging status post realignment, normalization, and attenuation correction demonstrate mildly reduced perfusion of the anterior wall at rest which actually appears improved post pharmacological stress. With normal wall motion, consider attenuation artifact no reversible ischemia noted. There is end systolic thickening and brightening. On gated images, the LV appears mildly dilated. The reported LVEF is 58%. Impression: 1. Pharmacologic (Regadenoson) evaluation 2. Peak pharmacologic ECG with no ischemic changes. 3. There were no cardiac dysrhythmias pretest, during pharmacologic infusion, or recovery. 5. Rest and stress SPECT Cardiolite nuclear imaging demonstrate relative uniform tracer uptake and myocardial perfusion appearing within normal limits. 6. The gated Cardiolite study reports an LVEF of 58%. The LV cavity appears dilated. This note was generated with [employer] software. It may contain incorrect words, spelling, and punctuation that were not noted in checking the note before signing.
== END | disposition home or self-care (01) ==
LOC: CVS 06:21
PROVIDERS: PCP Student in an Organized Health Care Education/Training Program; Referring Provider Physician Assistant Medical; Visit Provider Physician Assistant Medical
DX: R06.02 Shortness of breath (principal); I48.91 Unspecified atrial fibrillation; Z51.81 Encounter for therapeutic drug level monitoring; Z79.899 Other long term (current) drug therapy
CPT/HCPCS: 78452; 93017; A9500; A4216; J2785

== ENCOUNTER 2025-08-26 17:35 | Emergency (ER) | payer MEDICARE, BC, SELFPAY ==
[2025-08-26] VITALS (8 sets, daily range): BP systolic 130–161; BP diastolic 64–87; PULSE 80–107; RESP 14–25; TEMP 36.8–37; O2SAT 88–94
--- NOTE | 2025-08-26 19:01 | EKG12_ITS ---
Test Reason : DYSRHYTHMIA
[2025-08-26] MEDS: Albuterol 2.5 MG/3 ML VIAL.NEB. INHALATION (19:12)
--- NOTE | 2025-08-26 19:43 | RAD_ITS ---
PROCEDURE: RAD/Chest PA and Lateral
[2025-08-26 19:48] LABS: Hematocrit 42.8 % (37-47); Hemoglobin 12.9 g/dL (12.0-15.0); Immature Granulocytes Count 0.060 X10^3/uL (0.0-0.0); Mean Corp Hgb Conc 30.1 g/dL (32-36); Mean Corpuscular Volume 97.1 fL (81-99); Mean Platelet Vol. 10.9 fl (6.2-12.0); NRBC Flagged by Analyzer 0 % (0-5); Platelet Count 199 K/mm3 (150-450); RBC Distribution Width CV 16.5 % (11.6-14.6); RBC Distribution Width SD 59.3 fl (35.1-43.9); Red Blood Count 4.41 M/mm3 (4.2-5.4); White Blood Count 12.4 K/mm3 (4.4-11.0)
[2025-08-26 19:52] LABS: Pro- Brain NATRIURETIC PEPTIDE 468 pg/mL (<=900); Troponin T High Sensitivity < 6 ng/L (<=14)
[2025-08-26 19:53] LABS: Anion Gap 15 (5-15); BUN 14 mg/dL (4-19); BUN/Creat Ratio 20.8 RATIO (10-20); Calcium,Total 9.4 mg/dL (7.6-11.0); Carbon Dioxide 28.2 mmol/L (21.0-32.0); Chloride 98 mmol/L (98-108); Glucose 112 mg/dL (70-99); Potassium 4.0 mmol/L (3.3-5.1)
--- NOTE | 2025-08-26 20:43 | ED.VIS.DYS ---
HPI History of Present Illness Chief Complaint: Shortness of Breath Informant: patient Onset/Context/Timing Onset: Days Context: gradual Timing: Continuous Quality: Positive for Wheezing Current Severity: Moderate Maximum Severity: Moderate Worsened by: Exertion and Coughing Associated Symptoms cough Chest Pain: Positive for None Narrative Narrative: 62-year-old female history of A-fib, a flutter on Eliquis history of COPD on 3-1/2 L at home 6 L with exertion. States she has been more short of breath over the last 2 weeks. With a cough of green sputum. Denies chest pain. No hemoptysis. No leg pain or swelling. No history of DVT or PE. PE Risk Factors: Negative for Cancer, OCP + Smoking + > 35, Prior DVT or PE, Recent immobilization, Recent surgery or Recent travel Prior similar symptoms: Yes Recent Illness/Hospitalization: Yes PFSH PFS Medical History Atrial flutter with rapid ventricular response Pulmonary nodule Atrial flutter Shortness of breath ROXY (obstructive sleep apnea) Leiomyoma of uterus Internal hemorrhoids with complication Hypertension Diverticulosis of colon Chronic hypoxemic respiratory failure Alcohol abuse Former smoker On home oxygen therapy Irregular heart beat Atrial fibrillation COPD (chronic obstructive pulmonary disease) Home Medications ?Medication ?Instructions ?Recorded ?Last Taken ?Type Oxygen, Home [Home Oxygen] 2 - 4 lpm QHS sob/copd 11/13/17 08/26/25 History albuterol sulfate 90 mcg/actuation 2 inh inhalation Q6H PRN shortness 02/19/25 08/26/25 History breath activated powder inhaler of breath fluticasone fur. 200 mcg-umeclid 1 ea inhalation DAILY sob 02/19/25 08/26/25 History 62.5 mcg-vilant 25 mcg inhalat.powder (Trelegy Ellipta) ipratropium 0.5 mg-albuterol 3 mg 3 ml inhalation Q6H PRN shortness 02/19/25 08/26/25 History (2.5 mg base)/3 mL nebulization of breath soln multivitamin (Daily Multi-Vitamin 1 tab PO DAILY supplement 02/19/25 08/26/25 History tablet) sodium chloride 0.65 % nasal spray 1 spray intranasal BID PRN dry 02/19/25 Unknown History aerosol ([place] Saline) nasal passages ascorbic acid (vitamin C) 500 mg 500 mg PO DAILY PRN supplement 03/30/25 Unknown History capsule cinnamon bark 500 mg capsule 500 mg PO QDAY supplement 03/30/25 08/26/25 History (Cinnamon) mecobalamin (vitamin B12) 1,000 1,000 mcg PO QDAY supplement 03/30/25 08/26/25 History mcg chewable tablet apixaban 5 mg tablet (Eliquis) 5 mg PO BID blood thinner #180 tabs 05/07/25 08/26/25 Rx atorvastatin 40 mg tablet 40 mg PO QHS cholesterol #90 tabs 05/07/25 08/25/25 Rx dapagliflozin propanediol 10 mg 10 mg PO QAM heart #30 tabs 05/07/25 08/26/25 Rx tablet (Farxiga) metoprolol tartrate 50 mg tablet 50 mg PO BID blood pressure #180 05/07/25 08/26/25 Rx tabs furosemide 40 mg tablet 40 mg PO BID diuretic 06/08/25 08/26/25 History nystatin 100,000 unit/gram topical 1 applic topical BID PRN skin rash 06/08/25 Unknown History cream azithromycin 250 mg tablet 250 mg PO DAILY 4 days #4 tabs 08/26/25 Unknown Rx (Zithromax) diltiazem HCl 180 mg 180 mg PO BID heart rate 08/26/25 08/26/25 History capsule,extended release 24 hr potassium chloride 20 mEq 20 meq PO TID supplement 08/26/25 Unknown History tablet,extended release(part/cryst) (Klor-Con M) prednisone 20 mg tablet 40 mg (2 x 20 mg) PO DAILY 7 days 08/26/25 Unknown Rx #14 tabs roflumilast 250 mcg tablet 250 mcg PO DAILY copd 08/26/25 08/26/25 History Allergy/AdvReac Type Severity Reaction Status Date / Time ibuprofen (From Advil) Allergy Mild Hives Verified 07/30/25 11:10 nitrofurantoin (From Allergy Rash Verified 07/30/25 11:10 Macrobid) Family History Father Cancer Mother COPD (chronic obstructive pulmonary disease) Alcoholism Grandmother Hypertension Thyroid disorder Surgical History History of surgery History of colonoscopy History of lumpectomy of right breast Hx of inguinal herniorrhaphy Social History household members: none Smoking Status: Former smoker how long ago did patient quit smoking: Quit 15 years prior, smoked 1 pack/day since she been 16 until she quit. alcohol intake: current alcohol intake frequency: 0-2 drinks per day Alcohol type: hard liquor details: Hard liquor mixed drinks, previously heavier, down to 2 drinks daily. substance use type: does not use caffeine: Yes ROS ROS ED ROS Narrative Cough. Shortness of breath. Sputum. Constitutional Constitutional ED: Denies chills Eyes Eyes: Denies blurry vision ENT ENT ED: Denies ear pain Cardiovascular Cardiovascular: Denies chest pain Respiratory/Chest Respiratory/Chest: Reports cough, dyspnea, dyspnea on exertion and sputum Gastrointestinal Gastrointestinal: Denies abdominal pain, diarrhea, nausea or vomiting Genitourinary Genitourinary ED: Denies dysuria Musculoskeletal Musculoskeletal: Denies arthralgias Integumentary Denies abscess Neurologic Neurologic: Denies headache(s) Psychiatric Psychiatric: Denies anxiety or depression Endocrine Endocrinology: Denies cold intolerance Hematologic/Lymphatic Hematologic/Lymphatic: Denies easy bleeding Allergic/Immunologic Allergic/Immunologic ED: Denies mouth swelling EXAM Physical Exam Narrative Exam Narrative: 69-year-old female upright in bed. Mild respiratory distress. Pulse ox 94% on 4 L. Increased respiratory rate. Prolonged expiratory phase. H EENT exam pupils round react light. Moist mutes members. Neck nontender JVD. No lymphadenopathy. Lungs prolonged expiratory phase. Few scattered wheezes. No rales rhonchi. Equal symmetrical. Increased respiratory effort. Heart regular rhythm rate about 80 no murmur. Chest wall ribs nontender. Abdomen soft nontender. Moving all 4 extremities. Calves nontender no edema no cords. Neurologically she is awake alert. Answer questions following commands. Const Vital Signs: 08/26/25 17:35 08/26/25 17:45 08/26/25 18:35 Temperature 98.2 F Temperature Source Temporal Pulse Rate 80 85 Respiratory Rate 22 H 18 Respiratory Effort Normal Respiratory Depth Shallow Respiratory Pattern Tachypnea Blood Pressure 151/87 H 158/76 H Blood Pressure Mean 108 103 Pulse Ox 94 92 Oxygen Delivery Method Nasal Cannula Nasal Cannula Nasal Cannula Oxygen Flow Rate (L/min) 4 3.5 08/26/25 19:00 08/26/25 19:12 08/26/25 19:29 Temperature Temperature Source Pulse Rate 98 Respiratory Rate 20 H Respiratory Effort Respiratory Depth Respiratory Pattern Normal Blood Pressure 130/64 H Blood Pressure Mean 86 Pulse Ox 93 92 Oxygen Delivery Method Nasal Cannula Oxygen Flow Rate (L/min) 4 08/26/25 20:00 08/26/25 20:01 08/26/25 20:54 Temperature 98.6 F Temperature Source Pulse Rate 107 H 98 80 Respiratory Rate 25 H 20 H 14 Respiratory Effort Respiratory Depth Respiratory Pattern Blood Pressure 161/69 H 161/69 H 134/76 H Blood Pressure Mean 99 99 95 Pulse Ox 88 92 93 Oxygen Delivery Method Nasal Cannula Nasal Cannula Oxygen Flow Rate (L/min) 3.5 4 MDM MDM MDM Narrative Medical decision making narrative: 69-year-old female short of breath suspect suspicious COPD rule out pneumonia, viral syndrome versus cardiac event. Repeat exam patient is doing better at 8:50 PM. We discussed all of her test results and x-ray. She will be treated as a bronchitis with COPD exacerbation. Given the change in her sputum I will start her on Zithromax Z-Rogelio first dose given here. Prednisone daily 40 mg a day for a week. First dose given here IV. Her breathing is improved. I offered admission she would much prefer to go home. She knows return if worse. Follow-up with her doctor ensure she is improving. History & Record Review Discussion w/independent historian: Patient Additional record(s) reviewed:: Prior outpatient record, Prior ED visit and Prior labs Lab Data Attestation: I reviewed the patient's lab results. Lab results narrative: CBC shows white count 12.4 H&H 1242. Platelets 199. Electrolytes show sodium 141. Gap 15. BUN and creatinine 14 and 0.6. Glucose 112. Initial troponin less than 6. BNP 468 Chest x-ray chronic changes. COVID-negative. Flu and RSV negative. Labs: Laboratory Results - last 24 hr 08/26/25 19:24 WBC 12.4 H RBC 4.41 Hgb 12.9 Hct 42.8 MCV 97.1 MCH 29.3 MCHC 30.1 L RDW Std Deviation 59.3 H RDW Coeff of Karly 16.5 H Plt Count 199 MPV 10.9 Immature Gran % (Auto) 0.500 Neut % (Auto) 82.9 H Lymph % (Auto) 6.5 L Collier % (Auto) 9.4 Eos % (Auto) 0.3 Baso % (Auto) 0.4 Absolute Neuts (auto) 10.3 H Absolute Lymphs (auto) 0.81 L Nucleated RBC % 0 Sodium 141 Potassium 4.0 Chloride 98 Carbon Dioxide 28.2 Anion Gap 15 BUN 14 Creatinine 0.66 L Est GFR (MDRD) Non-Af 96 BUN/Creatinine Ratio 20.8 H Glucose 112 H Calcium 9.4 Troponin T High Sens < 6 NT pro BNP II 468 Radiography Chest X-Ray - ED: 2 View, Read by ED Physician, Read by Radiologist, Heart, Lungs, Mediastinum, Bony Structures, No Acute Disease and Chronic Changes Diagnostic Testing: Clinical Impression(s) from Imaging Studies Chest X-Ray 08/26/25 19:43 IMPRESSION: Diffuse pulmonary vascular congestion and bibasilar atelectasis. Reading Location: [facility] Chest, 2 views, interpreted by myself radiologist. Shows chronic changes to COPD. No pneumonia. No effusion. Bibasilar atelectasis. Possible vascular congestion versus chronic changes. Rhythm Strip Rhythm Strip: Sinus Rhythm Rate: 98 Ectopy: None EKG Initial EKG: Attestation: I personally reviewed and interpreted this EKG as follows: Interpretation: Sinus Rhythm and No Acute Injury Pattern Comments: Normal sinus rhythm rate of 98 no acute signs of MA or ischemia. No dysrhythmia. Discharge Plan Triage Chief Complaint: Shortness of Breath ED Provider: Clay Hager Dx/Rx/DC Orders Clinical Impression: Acute dyspnea, Acute exacerbation of chronic obstructive pulmonary disease, Bronchitis, Chronic anticoagulation Instructions: ED COPD Flare Prescriptions: New azithromycin [Zithromax] 250 mg tablet 250 mg PO DAILY 4 Days Qty: 4 0RF Rx Instructions: start on day 2 of therapy prednisone 20 mg tablet 40 mg PO DAILY 7 Days Qty: 14 0RF No Action cinnamon bark [Cinnamon] 500 mg capsule 500 mg PO QDAY mecobalamin (vitamin B12) 1,000 mcg tablet,chewable 1,000 mcg PO QDAY dapagliflozin propanediol [Farxiga] 10 mg tablet 10 mg PO QAM Qty: 30 11RF Eliquis 5 mg tablet 5 mg PO BID Qty: 180 3RF metoprolol tartrate 50 mg tablet 50 mg PO BID Qty: 180 3RF atorvastatin 40 mg tablet 40 mg PO QHS Qty: 90 3RF furosemide 40 mg tablet 40 mg PO BID Oxygen, Home [Home Oxygen] 2 - 4 lpm NASAL QHS Patient Comments: pt states she has 3 1/2 liters at rest and 6 liters with exertion ascorbic acid (vitamin C) 500 mg capsule 500 mg PO DAILY PRN (Reason: supplement) Patient Comments: only takes in winter albuterol sulfate 90 mcg/actuation aerosol powdr breath activated 2 inh inhalation Q6H PRN (Reason: shortness of breath) Trelegy Ellipta 200-62.5-25 mcg blister with device 1 ea inhalation DAILY ipratropium-albuterol 0.5 mg-3 mg(2.5 mg base)/3 mL solution for nebulization 3 ml inhalation Q6H PRN (Reason: shortness of breath) multivitamin [Daily Multi-Vitamin] Tablet 1 tab PO DAILY [place] Saline 0.65 % aerosol,spray 1 spray intranasal BID PRN (Reason: dry nasal passages) nystatin 100,000 unit/gram cream 1 applic topical BID PRN (Reason: skin rash) roflumilast 250 mcg tablet 250 mcg PO DAILY diltiazem HCl 180 mg capsule,extended release 24hr 180 mg PO BID potassium chloride [Klor-Con M20] 20 mEq tablet,ER particles/crystals 20 meq PO TID Primary Care Provider: Phuc Martines Referrals: Phuc Martines, [Primary Care Provider, Medical] - As soon as possible Activity Restrictions/Additional Instructions: Plenty of fluids and rest. Use your inhaler and nebulizer as needed. Start your prednisone tomorrow 40 mg a day once a day for 7 days. Start your antibiotic tomorrow 1 pill at lunch for 4 more days. Return if you are feeling worse. Follow-up your primary care physician to ensure you are improving. Print Language: [place]an Disposition Disposition: Home, Self Care Discharge Date/Time: 08/26/25 21:03
== END 2025-08-26 21:03 | disposition home or self-care (01) ==
PROVIDERS: Emergency Provider Emergency Medicine; PCP Student in an Organized Health Care Education/Training Program; Visit Provider Emergency Medicine
DX: J44.1 Chronic obstructive pulmonary disease with (acute) exacerbation (principal); J96.10 Chronic respiratory failure, unspecified whether with hypoxia or hypercapnia; I48.91 Unspecified atrial fibrillation; I10 Essential (primary) hypertension; G47.33 Obstructive sleep apnea (adult) (pediatric); Z79.01 Long term (current) use of anticoagulants; Z99.81 Dependence on supplemental oxygen; Z79.899 Other long term (current) drug therapy; Z87.891 Personal history of nicotine dependence
CPT/HCPCS: 71046; 80048; 83880; 84484; 85025; 87631; 93005; 94640; 96374; 99284; A4216

== ENCOUNTER → 2025-09-15 | Outpatient (CLI) | payer MEDICARE, BC, SELFPAY | END | disposition home or self-care (01) | LOC: PSN 11:42 | PROVIDERS: PCP Student in an Organized Health Care Education/Training Program; Referring Provider Physician Assistant Medical; Visit Provider Physician Assistant Medical | DX: R06.02 Shortness of breath (principal) | CPT/HCPCS: 93225; 93226 ==